=== PATIENT | female | born 1950 | race Caucasian/White ===

== ENCOUNTER → 2017-04-26 13:08 | Outpatient (CLI) | payer OTHER, MEDICARE, SELFPAY ==
[2017-04-26 14:27] VITALS: PULSE 90
== END ==
PROVIDERS: PCP Family Medicine; Visit Provider Family Medicine
DX: R06.2 Wheezing (principal)
CPT/HCPCS: 94060; 94640

== ENCOUNTER 2017-06-07 13:25 | Inpatient (IN) | payer OTHER, MEDICARE, SELFPAY ==
[2017-06-07 13:29] VITALS: BP 150/77; PULSE 67; RESP 18; TEMP 36.6; O2SAT 98; BMI 29.2
[2017-06-07 14:21] LABS: Alanine Aminotransferase 45 U/L (12-78); Albumin Level 2.8 gm/dL (3.4-5.0); Albumin/Globulin Ratio 0.5 (1.1-1.8); Alkaline Phosphatase 491 U/L (46-116); Anion Gap 16.3 mEq/L (5-15); Aspartate Amino Transferase 42 U/L (15-37); Bilirubin,Total 0.7 mg/dL (0.2-1.0); Blood Urea Nitrogen 34 mg/dL (7-18); Calcium 10.4 mg/dL (8.5-10.1); Carbon Dioxide 35 mmol/L (21.0-32.0); Chloride 82 mmol/L (98-107); Creatinine Clearance Estimated 33 mL/min (0-300); Creatinine,Serum 1.98 mg/dL (0.55-1.02); Estimated Glomerular Filt Rate 25 ml/min (>60); GFR (African American) 31 ML/MIN (>60); Globulin 5.8 gm/dl (1.3-3.2); Glucose 209 mg/dL (74-106); Magnesium 1.8 mg/dL (1.4-2.2); Sodium 132 mmol/L (136-145); Total Protein,Serum 8.6 gm/dL (6.4-8.2)
[2017-06-07 14:58] LABS: Potassium 1.3 mmoL/L (3.5-5.1)
--- NOTE | 2017-06-07 15:00 | PC.NURSE ---
spoke with lab called critical potassium 1.3.
--- NOTE | 2017-06-07 15:29 | HMH.EDNVD ---
ED Disposition Clinical Impression: Hypokalemia due to loss of potassium Disposition: Admitted as Observation Condition on Discharge: Serious Referrals: Connor Nunez MD [Primary Care Provider] - Time of Disposition: 15:45 - Critical Care Critical Care Time: Yes Attestation: On 06/07/17, the high probability of a clinically significant, sudden or life threatening deterioration of the following system(s) required my full and direct attention, intervention and personal management. The time I documented below is in addition to time spent performing reported procedures but includes the following listed in this critical care notation. Total Critical Care Time: 30 Vital system(s) involved:: Metabolic Failure My critical care processes included: Assessment & monitoring of V/S, Initial and Re-exams, Data Review/Interpretation, Coordinating Care, Medication Orders and management, Documentation Medical Decision Making Vital Signs: 06/07/17 13:29 Temperature 98 F Temperature Source Oral Pulse Rate [Right Radial] 67 Respiratory Rate 18 Blood Pressure [Right Arm] 150/77 Blood Pressure Mean [Right Arm] 101 Blood Pressure Source [Right Arm] Automatic Cuff Blood Pressure Position [Right Arm] Supine 02 Sat by Pulse Oximetry 98 Oxygen Delivery Method Room Air - Lab Data Lab results reviewed: Yes: I reviewed the patient's lab results. Lab Results 06/07/17 14:35: Sodium 132 L, Potassium 1.3 L*, Chloride 82 L, Carbon Dioxide 35 H, Anion Gap 16.3 H, BUN 34 H, Creatinine 1.98 H, Estimated Creat Clear 33, Estimated GFR 25 L, Est GFR ( Amer) 31 L, Glucose 209 H, Calcium 10.4 H, Magnesium 1.8, Total Bilirubin 0.7, AST 42 H, ALT 45, Alkaline Phosphatase 491 H, Total Protein 8.6 H, Albumin 2.8 L, Globulin 5.8 H, Albumin/Globulin Ratio 0.5 L Result diagrams: 06/07/17 14:35 Orders (Tests/Meds): ED MEDICATIONS Generic Name Dose Route Start Last Admin Trade Name Freq PRN Reason Stop Dose Admin Potassium Chloride/Water 100 mls @ 50 mls/hr 06/07/17 15:03 Potassium Chloride 20meq/100ml Ivpb IV 06/07/17 17:02 ONCE ONE Potassium Chloride/Water 100 mls @ 50 mls/hr 06/07/17 15:17 Potassium Chloride 20meq/100ml Ivpb IV 06/07/17 17:16 ONCE ONE Potassium Chloride/Water 100 mls @ 50 mls/hr 06/07/17 15:17 06/07/17 15:26 Potassium Chloride 20meq/100ml Ivpb IV 06/07/17 17:16 50 mls/hr ONCE ONE Administration Potassium Chloride/Dextrose/Sod Cl 1,000 mls @ 150 mls/hr 06/07/17 16:00 Kcl 20meq In D5w-0.45% Nacl IV 07/07/17 15:59 .Q6H40M RACHEL Potassium Chloride 40 meq 06/07/17 16:00 Potassium Chloride 20meq/15ml Solution Udc PO 07/07/17 15:59 DAILY RACHEL Discontinued Medications Generic Name Dose Route Start Last Admin Trade Name Freq PRN Reason Stop Dose Admin Sodium Chloride 500 mls @ 999 mls/hr 06/07/17 14:30 06/07/17 14:36 Sod Chlor 0.9% 1000ml Bag IV 06/07/17 15:00 Not Given .Q31M RACHEL Sodium Chloride 1,000 mls @ 999 mls/hr 06/07/17 14:45 06/07/17 14:36 Sod Chlor 0.9% 1000ml Bag IV 06/07/17 15:45 999 mls/hr .Q1H1M RACHEL Administration ORDERS Category Date Time Status CT abdomen pelvis wo con Stat Cat Scan 06/07/17 13:49 Ordered Complete Blood Count Auto Diff Stat Lab 06/07/17 13:32 Ordered - ECG Data Tracing #1 I reviewed this ECG and interpreted as documented below: ECG initial impression date: 06/07/17 (prolonged QTc) ECG initial impression time: 13:50 Normal Sinus Rhythm: Yes Conduction abnormalities present: QT prolongation - Physician Consults Physician Consulted: Dr. Nunez PCP Reason -: Admission - Beto Inquiry Pt receiving controlled substance: No Medical Decision Making Narrative: Pt reassessed multiple times; stayed alert; kept on monitor; potassium level rechecked for accuracy then replacement begun IV and PO. Nausea/Vomiting/Diarrhea HPI - General Chief complaint: Dizziness Stated compl
--- NOTE | 2017-06-07 15:32 | ED_ITS ---
ED Disposition Clinical Impression: Hypokalemia due to loss of potassium Disposition: Admitted as Observation Condition on Discharge: Serious Referrals: Connor Nunez MD [Primary Care Provider] - Time of Disposition: 15:45 - Critical Care Critical Care Time: Yes Attestation: On 06/07/17, the high probability of a clinically significant, sudden or life threatening deterioration of the following system(s) required my full and direct attention, intervention and personal management. The time I documented below is in addition to time spent performing reported procedures but includes the following listed in this critical care notation. Total Critical Care Time: 30 Vital system(s) involved:: Metabolic Failure My critical care processes included: Assessment & monitoring of V/S, Initial and Re-exams, Data Review/Interpretation, Coordinating Care, Medication Orders and management, Documentation Medical Decision Making Vital Signs: 06/07/17 13:29 Temperature 98 F Temperature Source Oral Pulse Rate [Right Radial] 67 Respiratory Rate 18 Blood Pressure [Right Arm] 150/77 Blood Pressure Mean [Right Arm] 101 Blood Pressure Source [Right Arm] Automatic Cuff Blood Pressure Position [Right Arm] Supine 02 Sat by Pulse Oximetry 98 Oxygen Delivery Method Room Air - Lab Data Lab results reviewed: Yes: I reviewed the patient's lab results. Lab Results 06/07/17 14:35: Sodium 132 L, Potassium 1.3 L*, Chloride 82 L, Carbon Dioxide 35 H, Anion Gap 16.3 H, BUN 34 H, Creatinine 1.98 H, Estimated Creat Clear 33, Estimated GFR 25 L, Est GFR ( Amer) 31 L, Glucose 209 H, Calcium 10.4 H, Magnesium 1.8, Total Bilirubin 0.7, AST 42 H, ALT 45, Alkaline Phosphatase 491 H , Total Protein 8.6 H, Albumin 2.8 L, Globulin 5.8 H, Albumin/Globulin Ratio 0.5 L Result diagrams: 06/07/17 14:35 Orders (Tests/Meds): ED MEDICATIONS Generic Name Dose Route Start Last Admin Trade Name Freq PRN Reason Stop Dose Admin Potassium Chloride/Water 100 mls @ 50 mls/hr 06/07/17 15:03 Potassium Chloride 20meq/100ml Ivpb IV 06/07/17 17:02 ONCE ONE Potassium Chloride/Water 100 mls @ 50 mls/hr 06/07/17 15:17 Potassium Chloride 20meq/100ml Ivpb IV 06/07/17 17:16 ONCE ONE Potassium Chloride/Water 100 mls @ 50 mls/hr 06/07/17 15:17 06/07/17 15:26 Potassium Chloride 20meq/100ml Ivpb IV 06/07/17 17:16 50 mls/hr ONCE ONE Administration Potassium Chloride/Dextrose/Sod Cl 1,000 mls @ 150 mls/hr 06/07/17 16:00 Kcl 20meq In D5w-0.45% Nacl IV 07/07/17 15:59 .Q6H40M RACHEL Potassium Chloride 40 meq 06/07/17 16:00 Potassium Chloride 20meq/15ml Solution Udc PO 07/07/17 15:59 DAILY RACHEL Discontinued Medications Generic Name Dose Route Start Last Admin Trade Name Freq PRN Reason Stop Dose Admin Sodium Chloride 500 mls @ 999 mls/hr 06/07/17 14:30 06/07/17 14:36 Sod Chlor 0.9% 1000ml Bag IV 06/07/17 15:00 Not Given .Q31M RACHEL Sodium Chloride 1,000 mls @ 999 mls/hr 06/07/17 14:45 06/07/17 14:36 Sod Chlor 0.9% 1000ml Bag IV 06/07/17 15:45 999 mls/hr .Q1H1M RACHEL Administration ORDERS Category Date Time Status CT abdomen pelvis wo con Stat Cat Scan 06/07/17 13:49 Ordered Complete Blood Count Auto
[2017-06-07 15:44] LABS: Hematocrit 51.1 % (37.0-47.0); Mean Corpuscular Volume 93.3 fl (81-99); Red Blood Count 5.48 M/mm3 (4.20-5.40); White Blood Count 10.6 K/mm3 (4.8-10.8)
[2017-06-07 15:45] LABS: Basophils % 0.3 % (0.1-2.0); Eosinophils % 0.4 % (0.1-12.0); Mean Corpuscular HGB Conc 33.3 g/dL (31.8-35.4); Mean Corpuscular Hemoglobin 31.1 pg (27.0-31.2); Mean Platelet Volume 8.2 fl (7.4-10.4); Monocytes # 0.3 K/mm3 (0.1-1.0); Monocytes % 2.8 % (1.7-9.3); Neutrophils # 8.1 K/mm3 (1.8-7.8); Neutrophils % 75.9 % (37.0-80.0); Red Cell Distribution Width 14.6 % (11.5-17.5)
[2017-06-07 15:46] LABS: Lymphocytes # 2.2 K/mm3 (0.7-4.5); Lymphocytes % 20.6 K/mm3 (10-50)
[2017-06-07 16:20] LABS: Platelet Count 842 K/mm3 (142-424)
--- NOTE | 2017-06-07 16:28 | PC.NURSE ---
Report given to SPENCER Yan.
[2017-06-07 16:40] VITALS: BP 150/77; PULSE 67; RESP 18; TEMP 36.7; O2SAT 98
[2017-06-07 17:00] VITALS: BP 140/65; PULSE 62; RESP 18; TEMP 36.6; O2SAT 99; BMI 32.1
[2017-06-07 18:02] LABS: Phosphorous 3.6 mg/dL (2.4-4.9)
--- NOTE | 2017-06-07 19:27 | PC.NURSE ---
PATIENT ADMITTED TODAY FOR HYPOKALEMIA, RESTING IN BED AT THIS TIME, STATES SHE CAN FEEL HERSELF GETTING BETTER. GAVE REPORT TO OPAL PALMER
[2017-06-07 19:50] VITALS: O2SAT 97
[2017-06-07 20:00] VITALS: BP 111/63; PULSE 50; PULSE 63; RESP 14; TEMP 36.4; O2SAT 97
[2017-06-07 21:24] LABS: Anion Gap 11.4 mEq/L (5-15); Blood Urea Nitrogen 32 mg/dL (7-18); Carbon Dioxide 34 mmol/L (21.0-32.0); Chloride 90 mmol/L (98-107); Creatinine Clearance Estimated 41 mL/min (0-300); Creatinine,Serum 1.71 mg/dL (0.55-1.02); Estimated Glomerular Filt Rate 30 ml/min (>60); GFR (African American) 36 ML/MIN (>60); Glucose 132 mg/dL (74-106); Sodium 134 mmol/L (136-145)
[2017-06-07 21:32] LABS: Potassium 1.4 mmoL/L (3.5-5.1)
[2017-06-07 21:37] LABS: C-Reactive Protein 16.9 mg/L (0.0-0.9)
[2017-06-07 22:15] LABS: Erythrocyte Sedimentation Rate 86 mm/hr (0-30)
--- NOTE | 2017-06-07 22:34 | PC.NURSE ---
lab notified RN of critical lab value potassium 1.4, notified and responded at 2137, new orders for one dose potassium 20 meq PO, and 5 bags of potassium 20 meq IV ordered, order was repeated and verified.
[2017-06-08] VITALS (11 sets, daily range): BP systolic 110–167; BP diastolic 53–114; PULSE 64–83; RESP 16–18; TEMP 36.7–37.2; O2SAT 95–99
--- NOTE | 2017-06-08 03:28 | PC.NURSE ---
no changes noted from previous assessment, pt has rested well this shift, pt denies pain, c/o weakness and states she has had a period of incontinence due to the weakness, pt was encouraged to voice need to use the bathroom so that staff could assist with ambulation to the restroom, pt has had no diarrhea this shift, abdomen is soft and non tender, bowel sounds are active, breath sounds are clear to auscultation, vss, no acute distress noted at this time, call light in reach, will continue to monitor.
[2017-06-08 07:01] LABS: Alanine Aminotransferase 46 U/L (12-78); Albumin Level 2.1 gm/dL (3.4-5.0); Albumin/Globulin Ratio 0.5 (1.1-1.8); Alkaline Phosphatase 459 U/L (46-116); Anion Gap 10.9 mEq/L (5-15); Aspartate Amino Transferase 67 U/L (15-37); Bilirubin,Total 0.5 mg/dL (0.2-1.0); Blood Urea Nitrogen 28 mg/dL (7-18); Carbon Dioxide 32 mmol/L (21.0-32.0); Chloride 94 mmol/L (98-107); Creatinine Clearance Estimated 45 mL/min (0-300); Creatinine,Serum 1.57 mg/dL (0.55-1.02); Estimated Glomerular Filt Rate 33 ml/min (>60); GFR (African American) 40 ML/MIN (>60); Glucose 152 mg/dL (74-106); Magnesium 1.5 mg/dL (1.4-2.2); Sodium 135 mmol/L (136-145); Total Protein,Serum 6.1 gm/dL (6.4-8.2)
[2017-06-08 07:08] LABS: Potassium 1.9 mmoL/L (3.5-5.1)
--- NOTE | 2017-06-08 07:49 | HMH.HP ---
*Admission Date: 06/07/17 *Chief complaint: Weakness *History of present illness: 66-year-old female presented to the emergency department with a 2 week history of episodes of vomiting with diarrhea with acute worsening of the diarrhea over the last 4-5 days for which she was using Lomotil. Patient estimates she was having at least 5 watery bowel movements per day. In the emergency department patient was quite weak and was found to have a potassium of 1.3 along with mild acute kidney injury. Patient was admitted with both oral and IV potassium repigment. Follow-up potassium was 1.4 after runs of IV potassium. This morning her potassium is risen to 1.9. [facility] History Medical History: Denies:: Cancer, Diabetes Mellitus Type 1, Diabetes Mellitus Type 2, Internal Pacemaker, MRSA Other Medical History: Reports: Arthritis, Other (hypokalemia) Laterality Cases: Left: Arthroscopy Shoulder, Right: Total Hip Replacement Other Surgeries: No: Pacemaker Amputation: No Fractures: No - *Social History Educational Level: Completed College Smoking Status: Never smoker Alcohol Intake: never Occupational Status: retired Housing: house Household Members: spouse - Psychiatric History Expresses thoughts of harming self/others: None Suicide Plan Description: No Plan *Family Hx:: Unable to obtain Review of Systems - Review of Systems Review of systems:: pertinent systems reviewed and negative unless documented below Meds Home Medications Medication Instructions Recorded Confirmed Type Acyclovir [Zovirax 400mg tablet] 400 mg PO BID 06/07/17 06/07/17 History Albuterol Sulfate [Proair Hfa 2 puffs IH Q4HP PRN 06/07/17 06/07/17 History 90mcg/puff Inh] Atenolol/Chlorthalidone 1 each PO DAILY 06/07/17 06/07/17 History [Atenolol-Chlorthalidone 50-25] Atorvastatin Calcium [Atorvastatin 20 mg PO DAILY 06/07/17 06/07/17 History 20mg Tab] Cetirizine HCl 10 mg PO DAILY 06/07/17 06/07/17 History Diphenoxylate HCl/Atropine 2.5 mg PO Q4H 06/07/17 06/07/17 History [Lomotil 2.5mg tablet] Doxycycline Hyclate 100 mg PO BID 06/07/17 06/07/17 History Duloxetine HCl 60 mg PO DAILY 06/07/17 06/07/17 History Estradiol 1 mg PO DAILY 06/07/17 06/07/17 History Estradiol 2 mg PO DAILY 06/07/17 06/07/17 History Estradiol [Divigel] 1 gm TD DAILY 06/07/17 06/07/17 History Furosemide [Furosemide 40MG tAB] 40 mg PO DAILY 06/07/17 06/07/17 History Montelukast Sodium [Montelukast 10 mg PO HS 06/07/17 06/07/17 History 10mg Tab] Nystatin [Nystatin Cr 100,000 100,000 susprecons PO Q4HP PRN 06/07/17 06/07/17 History Units/GM 30GM] Oxycodone HCl/Acetaminophen 325 mg PO Q4HP PRN 06/07/17 06/07/17 History [Oxycodone W/Apap 325mg Tablet] Progesterone, Micronized 100 mg PO HS 06/07/17 06/07/17 History [Progesterone] Progesterone, Micronized 200 mg PO DAILYP PRN 06/07/17 06/07/17 History [Progesterone] Promethazine HCl [Promethazine 50 mg RC Q6H PRN 06/07/17 06/07/17 History 50mg Supp] Trazodone HCl 150 mg PO BID 06/07/17 06/07/17 History cloNIDine HCl [cloNIDine 0.1mg 0.1 mg PO BID 06/07/17 06/07/17 History Tablet] Allergies Allergy/AdvReac Type Severity Reaction Status Date / Time No Known Allergies Allergy Verified 06/07/17 13:39 Exam Vital signs and Labs for Last 24 Hours: Temp Pulse Resp BP Pulse Ox 98.0 F 70 16 167/114 99 06/08/17 04:00 06/08/17 04:00 06/08/17 04:00 06/08/17 04:00 06/08/17 04:00 Laboratory Results - last 24 hr 06/07/17 21:00: Sodium 134 L, Potassium 1.4 L*, Chloride 90 L, Carbon Dioxide 34 H, Anion Gap 11.4, BUN 32 H, Creatinine 1.71 H, Estimated Creat Clear 41, Estimated GFR 30 L, Est GFR ( Amer) 36 L, Glucose 132 H D 06/07/17 21:00: ESR 86 H 06/07/17 21:00: C-Reactive Protein 16.9 H 06/08/17 06:20: Sodium 135 L, Potassium 1.9 L* D, Chloride 94 L, Carbon Dioxide 32, Anion Gap 10.9, BUN 28 H, Creatinine 1.57 H, Estimated Creat Clear 45, Estimated GFR 33 L, Est GFR ( Amer
[2017-06-08 07:51] LABS: Basophils % 0.3 % (0.1-2.0); Eosinophils # 0.1 K/mm3 (0.0-0.4); Eosinophils % 0.6 % (0.1-12.0); Hematocrit 39.9 % (37.0-47.0); Lymphocytes # 1.7 K/mm3 (0.7-4.5); Lymphocytes % 14.8 K/mm3 (10-50); Mean Corpuscular HGB Conc 33.7 g/dL (31.8-35.4); Mean Corpuscular Hemoglobin 31.9 pg (27.0-31.2); Mean Corpuscular Volume 94.5 fl (81-99); Mean Platelet Volume 7.6 fl (7.4-10.4); Monocytes # 0.4 K/mm3 (0.1-1.0); Monocytes % 3.2 % (1.7-9.3); Neutrophils # 9.5 K/mm3 (1.8-7.8); Neutrophils % 81.1 % (37.0-80.0); Platelet Count 697 K/mm3 (142-424); Red Blood Count 4.22 M/mm3 (4.20-5.40); Red Cell Distribution Width 14.9 % (11.5-17.5); White Blood Count 11.7 K/mm3 (4.8-10.8)
--- NOTE | 2017-06-08 07:54 | PC.NURSE ---
Dr. Nunez paged at 0720 this morning, he was notified in person at 0745 of a critical potassium of 1.9. No verbal orders received.
[2017-06-08 08:02] LABS: Hemoglobin 13.5 g/dL (12.2-16.2)
--- NOTE | 2017-06-08 13:43 | HMH.PHAVTE ---
[facility] Pharm[facility] VTE Monitoring - Patient Demographics Admission date: 06/08/17 Report Date: 06/08/17 Time: 13:43 Allergies/Adverse Reactions: Patient Allergies No Known Allergies Allergy (Verified 06/07/17 13:39) Height: 1.57 m Weight: 79.549 kg Patient Problems: Current Active Problems Hypokalemia due to loss of potassium (Acute) - VTE Risk Labs: VTE Related Lab Results Hgb 13.5 g/dL (12.2-16.2) D 06/08/17 06:20 Hct 39.9 % (37.0-47.0) 06/08/17 06:20 Plt Count 697 K/mm3 (142-424) H 06/08/17 06:20 BUN 28 mg/dL (7-18) H 06/08/17 06:20 Creatinine 1.57 mg/dL (0.55-1.02) H 06/08/17 06:20 Estimated Creat Clear 45 mL/min (0-300) 06/08/17 06:20 Was VTE Risk Assessment Performed: No VTE Score: 1 VTE Risk Level: Very Low Risk - Prophylaxis Types of VTE Prophylaxis: TEDS Knee High - VTE Diagnosis Confirmed Comment: ELIA WREN ORDERED
[2017-06-08 14:38] LABS: Anion Gap 14.5 mEq/L (5-15); Blood Urea Nitrogen 25 mg/dL (7-18); Carbon Dioxide 26 mmol/L (21.0-32.0); Chloride 97 mmol/L (98-107); Creatinine Clearance Estimated 53 mL/min (0-300); Creatinine,Serum 1.33 mg/dL (0.55-1.02); Estimated Glomerular Filt Rate 40 ml/min (>60); GFR (African American) 48 ML/MIN (>60); Glucose 132 mg/dL (74-106); Sodium 135 mmol/L (136-145)
[2017-06-08 14:40] LABS: Potassium 2.5 mmoL/L (3.5-5.1)
--- NOTE | 2017-06-08 14:49 | PC.NURSE ---
DR. CHAPIN NOTIFIED OF POTASSIUM OF 2.5, ORDER TO CANCEL LAST TWO INFUSIONS OF POTASSIUM WAS RECEIVED. WILL CONTINUE TO MONITOR.
--- NOTE | 2017-06-08 18:14 | PC.NURSE ---
Pt tolerated well this shift, VS stable. Pt very confused through out this shift. Pt has had potassium running the entire shift, along with her ordered fluids. Pt's family visited bedside this shift. Dr. Nunez notified for midday potassium level of 2.5, and order to discontinue last 2 doses of potassium runs was received. Pt is in bed, call light within reach, last run of potassium infusing, will continue to monitor.
[2017-06-09] VITALS (9 sets, daily range): BP systolic 119–144; BP diastolic 55–74; PULSE 20–90; RESP 14–20; TEMP 36.4–36.9; O2SAT 98–100
--- NOTE | 2017-06-09 02:40 | PC.NURSE ---
at approximately 2100 pt was A&O however having periods of confusion, pt was hostile toward staff and used profanity toward staff, pt has a bag of medications at the bedside and refuses to let staff lock the medications in a drawer, after some rest pt became more cooperative with staff and less confused, pt has rested well this shift, diarrhea has decreased, pt has been ambulating to and from the bathroom with standby assist and tolerating well, bowel sounds are hyperactive, pt c/o upset stomach once this shift no vomiting noted, breath sounds are clear to auscultation, vss, no acute distress noted at this time, bed alarm activated, call light in reach, will continue to monitor.
--- NOTE | 2017-06-09 06:59 | HMH.ACPN2 ---
Internal Medicine - PN: Subj *Date: 06/09/17 *Time: 06:59 Interval history: Patient is without complaints this morning. Nursing staff reports patient became combative for a brief period of time overnight with staff. She was ultimately able to calm down and returned to her normally pleasant self. She continues to have some abdominal cramping with some bouts of diarrhea. We have still been unable to collect a sample. She is a poor nausea but no further vomiting. She is tolerating her p.o. medicines but tells me eating and drinking are bothersome to her stomach. Exam Vital signs and Labs for Last 24 Hours: Temp Pulse Resp BP Pulse Ox 98.3 F 76 14 119/57 98 06/09/17 04:00 06/09/17 04:00 06/09/17 04:00 06/09/17 04:00 06/09/17 04:00 Laboratory Results - last 24 hr 06/08/17 06:20: WBC 11.7 H, RBC 4.22, Hgb 13.5 D, Hct 39.9, MCV 94.5, MCH 31.9 H, MCHC 33.7, RDW 14.9, Plt Count 697 H, MPV 7.6, Neut % (Auto) 81.1 H, Lymph % (Auto) 14.8, [place] % (Auto) 3.2, Eos % (Auto) 0.6, Baso % (Auto) 0.3, Neut # (Auto) 9.5 H, Lymph # (Auto) 1.7, [place] # (Auto) 0.4, Eos # (Auto) 0.1, Baso # (Auto) 0.0 06/08/17 06:20: Sodium 135 L, Potassium 1.9 L* D, Chloride 94 L, Carbon Dioxide 32, Anion Gap 10.9, BUN 28 H, Creatinine 1.57 H, Estimated Creat Clear 45, Estimated GFR 33 L, Est GFR ( Amer) 40 L, Glucose 152 H, Calcium 8.0 L D, Magnesium 1.5 D, Total Bilirubin 0.5, AST 67 H D, ALT 46, Alkaline Phosphatase 459 H, Total Protein 6.1 L D, Albumin 2.1 L D, Globulin 4.0 H, Albumin/Globulin Ratio 0.5 L 06/08/17 14:20: Sodium 135 L, Potassium 2.5 L* D, Chloride 97 L, Carbon Dioxide 26, Anion Gap 14.5, BUN 25 H, Creatinine 1.33 H, Estimated Creat Clear 53, Estimated GFR 40 L, Est GFR ( Amer) 48 L, Glucose 132 H I & O for Last 24 hours: Intake & Output 06/06/17 06/07/17 06/08/17 06/09/17 11:59 11:59 11:59 11:59 Intake Total 3192.500 / 3192.500 3049 / 3049 Output Total 1100 / 1100 Balance 2092.500 / 2092.500 3049 / 3049 Weight 175 lb 6 oz 175 lb 6 oz Narrative: She is pleasant this morning. She appears better hydrated. Oropharynx is moist. Neck is without lymphadenopathy. Lungs are clear. Heart has a regular rate and rhythm. Abdomen is soft with mild left lower quadrant tenderness to palpation. 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 We will continue to try to obtain a stool sample for testing 2. Decrease maintenance fluids to 75 mL's per hour. Continue oral potassium supplementation 3. Await potassium level this morning. 4. Patient's bouts of confusion may be due to drug withdrawal from narcotics. This morning she seems pleasant and vital signs are stable. Patient is actually requesting discharge because she feels better. If potassium is within reasonable range and patient is able to tolerate p.o. liquids she will be discharged home late this evening
--- NOTE | 2017-06-09 07:02 | P.PN_ITS ---
Internal Medicine - PN: Subj *Date: 06/09/17 *Time: 06:59 Interval history: Patient is without complaints this morning. Nursing staff reports patient became combative for a brief period of time overnight with staff. She was ultimately able to calm down and returned to her normally pleasant self. She continues to have some abdominal cramping with some bouts of diarrhea. We have still been unable to collect a sample. She is a poor nausea but no further vomiting. She is tolerating her p.o. medicines but tells me eating and drinking are bothersome to her stomach. Exam Vital signs and Labs for Last 24 Hours: Temp Pulse Resp BP Pulse Ox 98.3 F 76 14 119/57 98 06/09/17 04:00 06/09/17 04:00 06/09/17 04:00 06/09/17 04:00 06/09/17 04:00 Laboratory Results - last 24 hr 06/08/17 06:20: WBC 11.7 H, RBC 4.22, Hgb 13.5 D, Hct 39.9, MCV 94.5, MCH 31.9 H, MCHC 33.7, RDW 14.9, Plt Count 697 H, MPV 7.6, Neut % (Auto) 81.1 H, Lymph % (Auto) 14.8, [place] % (Auto) 3.2, Eos % (Auto) 0.6, Baso % (Auto) 0.3, Neut # ( Auto) 9.5 H, Lymph # (Auto) 1.7, [place] # (Auto) 0.4, Eos # (Auto) 0.1, Baso # ( Auto) 0.0 06/08/17 06:20: Sodium 135 L, Potassium 1.9 L* D, Chloride 94 L, Carbon Dioxide 32, Anion Gap 10.9, BUN 28 H, Creatinine 1.57 H, Estimated Creat Clear 45, Estimated GFR 33 L, Est GFR ( Amer) 40 L, Glucose 152 H, Calcium 8.0 L D , Magnesium 1.5 D, Total Bilirubin 0.5, AST 67 H D, ALT 46, Alkaline Phosphatase 459 H, Total Protein 6.1 L D, Albumin 2.1 L D, Globulin 4.0 H, Albumin/Globulin Ratio 0.5 L 06/08/17 14:20: Sodium 135 L, Potassium 2.5 L* D, Chloride 97 L, Carbon Dioxide 26, Anion Gap 14.5, BUN 25 H, Creatinine 1.33 H, Estimated Creat Clear 53, Estimated GFR 40 L, Est GFR ( Amer) 48 L, Glucose 132 H I & O for Last 24 hours: Intake & Output 06/06/17 06/07/17 06/08/17 06/09/17 11:59 11:59 11:59 11:59 Intake Total 3192.500 / 3192.500 3049 / 3049 Output Total 1100 / 1100 Balance 2092.500 / 2092.500 3049 / 3049 Weight 175 lb 6 oz 175 lb 6 oz Narrative: She is pleasant this morning. She appears better hydrated. Oropharynx is moist. Neck is without lymphadenopathy. Lungs are clear. Heart has a regular rate and rhythm. Abdomen is soft with mild left lower quadrant tenderness to palpation. 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 We will continue to try to obtain a stool sample for testing 2. Decrease maintenance fluids to 75 mL's per hour. Continue oral potassium supplementation 3. Await potassium level this morning. 4. Patient's bouts of confusion may be due to drug withdrawal from narcotics. This morning she seems pleasant and vital signs are stable. Patient is actually requesting discharge because she feels better. If potassium is within reasonable range and patient is able to tolerate p.o. liquids she will be discharged home late this evening
--- NOTE | 2017-06-09 07:02 | HMH.DCSUM ---
General - General Admission date: 06/08/17 Discharge date: 06/09/17 HPI HPI: 66-year-old female presented to the emergency department with a 2 week history of episodes of vomiting with diarrhea with acute worsening of the diarrhea over the last 4-5 days for which she was using Lomotil. Patient estimates she was having at least 5 watery bowel movements per day. In the emergency department patient was quite weak and was found to have a potassium of 1.3 along with mild acute kidney injury. Patient was admitted with both oral and IV potassium repigment. Follow-up potassium was 1.4 after runs of IV potassium. This morning her potassium is risen to 1.9. Hospital Course Hospital Course: Patient was admitted and potassium was replaced both intravenously and orally until potassium returned to normal level. Last potassium prior to discharge on the evening of June 09 was 3.9. Patient had a several day history of frequent watery diarrhea prior to admission. A stool sample was collected on the morning of June 09 which was positive for C. difficile. Patient was started on oral Flagyl and will continue that at discharge. At discharge she was taken off all diuretics. On the evening of the patient requested discharge as her potassium had returned to normal and she was started on medication for her C. difficile she was discharged home with instructions to follow-up in the office on June 12 Objective Vital signs: Temp Pulse Resp BP Pulse Ox 98.3 F 76 14 119/57 98 06/09/17 04:00 06/09/17 04:00 06/09/17 04:00 06/09/17 04:00 06/09/17 04:00 Results Labs on day of discharge: Labs from last 24 hours 06/08/17 06/08/17 06/08/17 14:20 06:20 06:20 WBC 11.7 H RBC 4.22 Hgb 13.5 D Hct 39.9 MCV 94.5 MCH 31.9 H MCHC 33.7 RDW 14.9 Plt Count 697 H MPV 7.6 Neut % (Auto) 81.1 H Lymph % (Auto) 14.8 [place] % (Auto) 3.2 Eos % (Auto) 0.6 Baso % (Auto) 0.3 Neut # (Auto) 9.5 H Lymph # (Auto) 1.7 [place] # (Auto) 0.4 Eos # (Auto) 0.1 Baso # (Auto) 0.0 Sodium 135 L 135 L Potassium 2.5 L* D 1.9 L* D Chloride 97 L 94 L Carbon Dioxide 26 32 Anion Gap 14.5 10.9 BUN 25 H 28 H Creatinine 1.33 H 1.57 H Estimated Creat Clear 53 45 Estimated GFR 40 L 33 L Est GFR ( Amer) 48 L 40 L Glucose 132 H 152 H Calcium 8.0 L D Magnesium 1.5 D Total Bilirubin 0.5 AST 67 H D ALT 46 Alkaline Phosphatase 459 H Total Protein 6.1 L D Albumin 2.1 L D Globulin 4.0 H Albumin/Globulin Ratio 0.5 L DS: Diagnosis - Discharge Diagnosis (1) Hypokalemia due to loss of potassium Status: Acute (2) Diarrhea Status: Acute (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 difficile diarrhea Status: Acute Discharge Plan - Patient Discharge Instructions ACTIVITY: Continue current activity DIET: continue same diet - Follow up Plan Follow up with: Connor Nunez MD [Primary Care Provider] - 06/12/17 (Bring all home medications to your appointment) Disposition: Home, Self-Alf Medications: Home Medications Medication Instructions Recorded Confirmed Type Albuterol Sulfate [Proair Hfa 2 puffs IH Q4HP PRN 06/07/17 06/07/17 History 90mcg/puff Inh] Atorvastatin Calcium [Atorvastatin 20 mg PO DAILY 06/07/17 06/07/17 History 20mg Tab] Cetirizine HCl 10 mg PO DAILY 06/07/17 06/07/17 History Diphenoxylate HCl/Atropine 2.5 mg PO Q4H 06/07/17 06/07/17 History [Lomotil 2.5mg tablet] Doxycycline Hyclate 100 mg PO BID 06/07/17 06/07/17 History Duloxetine HCl 60 mg PO DAILY 06/07/17 06/07/17 History Estradiol 2 mg PO DAILY 06/07/17 06/07/17 History Montelukast Sodium [Montelukast 10 mg PO HS 06/07/17 06/07/17 History 10mg Tab] Nystatin [Nystatin Cr 100,000 1 gm PO Q4HP PRN 06/07/17 06/08/17 History Units/GM 30GM] Oxycodone HCl/Acetaminophen 325 mg PO
--- NOTE | 2017-06-09 07:03 | PC.NURSE ---
report given to Darlene Donaldson RN
--- NOTE | 2017-06-09 07:05 | P.DS_ITS ---
General - General Admission date: 06/08/17 Discharge date: 06/09/17 HPI HPI: 66-year-old female presented to the emergency department with a 2 week history of episodes of vomiting with diarrhea with acute worsening of the diarrhea over the last 4-5 days for which she was using Lomotil. Patient estimates she was having at least 5 watery bowel movements per day. In the emergency department patient was quite weak and was found to have a potassium of 1.3 along with mild acute kidney injury. Patient was admitted with both oral and IV potassium repigment. Follow-up potassium was 1.4 after runs of IV potassium. This morning her potassium is risen to 1.9. Hospital Course Hospital Course: Patient was admitted and potassium was replaced both intravenously and orally until potassium returned to normal level. Last potassium prior to discharge on the evening of June 09 was 3.9. Patient had a several day history of frequent watery diarrhea prior to admission. A stool sample was collected on the morning of June 09 which was positive for C. difficile. Patient was started on oral Flagyl and will continue that at discharge. At discharge she was taken off all diuretics. On the evening of the patient requested discharge as her potassium had returned to normal and she was started on medication for her C. difficile she was discharged home with instructions to follow-up in the office on June 12 Objective Vital signs: Temp Pulse Resp BP Pulse Ox 98.3 F 76 14 119/57 98 06/09/17 04:00 06/09/17 04:00 06/09/17 04:00 06/09/17 04:00 06/09/17 04:00 Results Labs on day of discharge: Labs from last 24 hours 06/08/17 06/08/17 06/08/17 14:20 06:20 06:20 WBC 11.7 H RBC 4.22 Hgb 13.5 D Hct 39.9 MCV 94.5 MCH 31.9 H MCHC 33.7 RDW 14.9 Plt Count 697 H MPV 7.6 Neut % (Auto) 81.1 H Lymph % (Auto) 14.8 [place] % (Auto) 3.2 Eos % (Auto) 0.6 Baso % (Auto) 0.3 Neut # (Auto) 9.5 H Lymph # (Auto) 1.7 [place] # (Auto) 0.4 Eos # (Auto) 0.1 Baso # (Auto) 0.0 Sodium 135 L 135 L Potassium 2.5 L* D 1.9 L* D Chloride 97 L 94 L Carbon Dioxide 26 32 Anion Gap 14.5 10.9 BUN 25 H 28 H Creatinine 1.33 H 1.57 H Estimated Creat Clear 53 45 Estimated GFR 40 L 33 L Est GFR ( Amer) 48 L 40 L Glucose 132 H 152 H Calcium 8.0 L D Magnesium 1.5 D Total Bilirubin 0.5 AST 67 H D ALT 46 Alkaline Phosphatase 459 H Total Protein 6.1 L D Albumin 2.1 L D Globulin 4.0 H Albumin/Globulin Ratio 0.5 L DS: Diagnosis - Discharge Diagnosis (1) Hypokalemia due to loss of potassium Status: Acute (2) Diarrhea Status: Acute (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 difficile diarrhea Status: Acute Discharge Plan - Patient Discharge Instructions ACTIVITY: Continue current activity DIET: continue same diet - Follow up Plan Follow up with: Connor Nunez MD [Primary Care Provider] - 06/12/17 (Bring all home medications to your appointment) Disposition: Home, Self-Care
[2017-06-09 07:16] LABS: Basophils % 0.2 % (0.1-2.0); Eosinophils # 0.1 K/mm3 (0.0-0.4); Eosinophils % 0.7 % (0.1-12.0); Hematocrit 36.8 % (37.0-47.0); Hemoglobin 12.4 g/dL (12.2-16.2); Lymphocytes # 1.6 K/mm3 (0.7-4.5); Mean Corpuscular HGB Conc 33.7 g/dL (31.8-35.4); Mean Corpuscular Hemoglobin 31.8 pg (27.0-31.2); Mean Corpuscular Volume 94.4 fl (81-99); Mean Platelet Volume 8.3 fl (7.4-10.4); Monocytes # 0.3 K/mm3 (0.1-1.0); Neutrophils # 7.4 K/mm3 (1.8-7.8); Platelet Count 636 K/mm3 (142-424); Red Cell Distribution Width 15.2 % (11.5-17.5); White Blood Count 9.4 K/mm3 (4.8-10.8)
[2017-06-09 07:31] LABS: Alanine Aminotransferase 34 U/L (12-78); Albumin Level 1.9 gm/dL (3.4-5.0); Alkaline Phosphatase 371 U/L (46-116); Anion Gap 11.1 mEq/L (5-15); Aspartate Amino Transferase 32 U/L (15-37); Bilirubin,Direct 0.2 mg/dL (0.0-0.2); Bilirubin,Total 0.4 mg/dL (0.2-1.0); Blood Urea Nitrogen 15 mg/dL (7-18); Carbon Dioxide 27 mmol/L (21.0-32.0); Chloride 99 mmol/L (98-107); Creatinine Clearance Estimated 64 mL/min (0-300); Estimated Glomerular Filt Rate 50 ml/min (>60); GFR (African American) 60 ML/MIN (>60); Glucose 125 mg/dL (74-106); Sodium 135 mmol/L (136-145); Total Protein,Serum 5.6 gm/dL (6.4-8.2)
[2017-06-09 07:34] LABS: Potassium 2.1 mmoL/L (3.5-5.1)
[2017-06-09 13:23] LABS: Adenovirus F 40/41, stool Not Detected (NotDetected); Astrovirus Not Detected (NotDetected); Campylobacter Not Detected (NotDetected); Cryptosporidium Not Detected (NotDetected); Cyclospora Cayetanesis Not Detected (NotDetected); Entamoeba histolytica Not Detected (NotDetected); Enteroaggregative E coli Not Detected (NotDetected); Enteropathogenic E coli Not Detected (NotDetected); Enterotoxigenic E coli Not Detected (NotDetected); Giardia lamblia Not Detected (NotDetected); Norovirus Not Detected (NotDetected); Plesimonas Shigalloides, PCR Not Detected (NotDetected); Rotavirus A Not Detected (NotDetected); Salmonella, PCR Not Detected (NotDetected); Sapovirus Not Detected (NotDetected); Shiga-like toxin E coli Not Detected (NotDetected); Shigella Enterovasive E coli Not Detected (NotDetected); Vibrio Cholerae Not Detected (NotDetected); Vibrio, PCR Not Detected (NotDetected); Yersinia Entercolitica, PCR Not Detected (NotDetected)
[2017-06-09 15:26] LABS: Clostridium Difficile A/B, PCR Detected (NotDetected)
--- NOTE | 2017-06-09 18:38 | PC.NURSE ---
PT IS ALERT AND ORIENTED X4, LABILE. SEVERAL EPISODES OF CONFUSION/AGITATION THROUGHOUT SHIFT. PT HAS BEEN HOSTILE AND ARGUMENTATIVE WITH STAFF ENTIRE SHIFT. PT'S RESPONSE TO QUESTIONS HAVE BEEN INAPPROPRIATE FOR SITUATION. STAFF ASKED PATIENT IF SHE IS IN PAIN, PT RESPONDED, ARE YOU COOKING SOMETHING ON THE STOVE? PT HAS HAD 3-4 EPISODES OF DIARRHEA, STOOL SAMPLE COLLECTED AND SENT TO LAB. NO C/O NAUSEA/VOMITING OR PAIN. IV IS SECURE, PATENT AND INFUSING IVF. 5 BAGS OF POTASSIUM COMPLETED ORDERED. PT INITIALLY REFUSED TO LET STAFF LOCK UP BAG OF HOME MEDICATIONS AT BEDSIDE, BUT EVENTUALLY AGREED. HOME MEDS ARE IN MEDICATION DRAWER. PT'S MOTHER CAME TO VISIT AND TOLD STAFF THAT HER DAUGHTER STEALS HER PAIN MEDS AT TIMES. VSS. NO S/S OF DISTRESS NOTED. FALL PREVENTION EDUCATION COMPLETED AND SAFETY MEASURES IN PLACE. WILL CONTINUE TO MONITOR.
[2017-06-09 20:11] LABS: Potassium 3.9 mmoL/L (3.5-5.1)
== END 2017-06-09 22:16 | disposition home or self-care (01) | DRG 641 ==
LOC: ER 15:49 → 2ND 16:29
PROVIDERS: Admitting Provider Family Medicine; Emergency Provider Emergency Medicine; PCP Family Medicine; Visit Provider Family Medicine
DX: E87.6 Hypokalemia (principal); A04.72 Enterocolitis due to Clostridium difficile, not specified as recurrent; Z79.899 Other long term (current) drug therapy
CPT/HCPCS: 36415; 80048; 80053; 80076; 83735; 84100; 84132; 85025; 85651; 86140; 87205; 87507; 93005; 96365; 96366; 99284

== ENCOUNTER → 2017-07-13 11:22 | Outpatient (CLI) | payer OTHER, MEDICARE, SELFPAY ==
--- NOTE | 2017-07-13 11:27 | CT_ITS ---
CT abdomen pelvis w con COMPARISON: CT scan abdomen pelvis 12/13/2012 HISTORY: Nausea vomiting diarrhea for several months, weight loss TECHNIQUE: Multiaxial scans obtained from the hemidiaphragms to the pelvic floor and were performed with IV and oral contrast. Sagittal and coronal reformats were evaluated as well. FINDINGS: The lower lung mejía are clear. The liver spleen stomach pancreas and gallbladder appear grossly normal. The adrenal glands are normal. The kidneys are normal in size and show symmetrical function both appearing normal. There are mildly dilated loops of proximal small bowel with mild diffuse wall thickening and without a definite transition zone to more normal caliber distal small bowel loops. The appendix is not definitely seen but I see no pericecal inflammatory changes. The terminal ileum appears normal caliber. There is scattered stool and gas mixed with oral contrast throughout the colon. The uterus is normal size and in the midline. The urinary bladder is decompressed. There is prominent streak artifact crossing the lower pelvis from a total left hip prosthesis. There is no free fluid in the pelvis. There is a tiny umbilical hernia containing fat only. IMPRESSION: Diffusely dilated proximal and mid small bowel with diffuse wall thickening and without definite transition zone, all findings suggestive of enteritis. The grossly normal-appearing terminal ileum would be somewhat against early Crohn's disease but this is not totally excluded.
--- NOTE | 2017-07-13 13:19 | HMH.ITSHM ---
POTASSIUM,MAGNESIUM VICODIN
== END ==
PROVIDERS: PCP Family Medicine; Visit Provider Family Medicine
DX: R11.11 Vomiting without nausea (principal); R10.33 Periumbilical pain; R63.4 Abnormal weight loss
CPT/HCPCS: 74177; Q9967

== ENCOUNTER → 2018-02-07 15:35 | Outpatient (CLI) | payer OTHER, MEDICARE, SELFPAY ==
--- NOTE | 2018-02-07 15:51 | XR_ITS ---
XR shoulder RT min 2V HISTORY: Right shoulder pain ITS.REASON: ROTATOR CUFF SYNDROME OF RT. SHOULDER ORDERING PHYSICIAN: Connor Nunez MD PATIENT AGE: 67 years Comparison: None FINDINGS: Severe osteoarthritis involves the glenohumeral joint with loss of joint space and osteophyte formation. Osteoarthritis also involves the acromioclavicular joint with subacromial stenosis. Hypertrophic changes are present at the distal acromium contributing to the subacromial stenosis No fracture or dislocation. No lytic or blastic change. 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
== END ==
PROVIDERS: PCP Family Medicine; Visit Provider Family Medicine
DX: M75.101 Unspecified rotator cuff tear or rupture of right shoulder, not specified as traumatic (principal)
CPT/HCPCS: 73030

== ENCOUNTER 2018-04-15 15:00 | Outpatient (RCR) | payer OTHER, MEDICARE, SELFPAY ==
--- NOTE | 2018-02-07 15:52 | HMH.PTOPEV ---
PT Outpatient Evaluation Rehab PT Outpatient Evaluation Start: 02/07/18 15:31 Freq: Status: Active Protocol: Document 02/07/18 15:31 DARON (Rec: 02/07/18 15:51 PHORNE [id number]) Electronically Signed By Moi Sands, PT 02/07/18 15:31 Outpatient Therapy Subjective History Subjective History Pt is 67 yowf who presents with c/o right shld pain x ~ 2 mos with insidious onset of symptoms. She reports pain is worse with certain activities and at night, especially if sleeping on the right side. She reports x-ray is scheduled for the right shld. She has hx of OA with left TSA and KANDY . She reports no c/o numbness or tingling and no neck pain. Daily pain meds help decrease her pain. Chief Complaint Pain Symptom Type Ache Sharp Symptoms Relieved By Rest/Positioning Symptoms Aggravated By Lifting Prior Functional Limitations None Current Functional Limitations Reaching Lifting Sleeping Symptom Description Constant but Variable Level of pain today (0-10) 3 Pain scale - at its worst (0-10) 8 Shoulder/Elbow Eval Shoulder Objective Measurements Palpation Tenderness tenderness shoulder exam standard right tenderness over the bicipital tendon right shoulder exam standard tenderness over the SA bursa shoulder right exam standard Shoulder ROM Right Shoulder Abduction Active Range of 0-115 Motion (degrees) Shoulder Abduction Passive Range of 0-170 Motion (degrees) Shoulder Flexion Active Range of Motion 0-170 (degrees) Query Text: Shoulder Flexion Passive Range of Motion 0-180 (degrees) Shoulder External Rotation Active Range 0-70 of Motion (degrees) Shoulder External Rotation Passive Range 0-75 of Motion (degrees) Shoulder Internal Rotation Active Range 0-70 of Motion (degrees) Shoulder Internal Rotation Passive Range 0-75 of Motion (degrees) pain with active ROM shoulder exam right standard Shoulder MMT Shoulder Abduction Strength Grade 2 Poor Shoulder Flexion Strength Grade 3 Fair Shoulder External Rotation Strength 4 Good Grade Shoulder Internal Rotation Strength 4 Good Grade
== END 2018-04-15 15:05 | disposition home or self-care (01) ==
LOC: PT 15:00
PROVIDERS: Visit Provider Family Medicine
DX: M75.101 Unspecified rotator cuff tear or rupture of right shoulder, not specified as traumatic (principal)
CPT/HCPCS: 97010; 97014; 97033; 97035; 97110; 97140; 97163; G0283

== ENCOUNTER 2018-10-18 15:00 | Outpatient (RCR) | payer OTHER, MEDICARE, SELFPAY | END 2018-10-18 15:05 | disposition home or self-care (01) | LOC: PT 15:00 | PROVIDERS: Visit Provider Orthopaedic Surgery | DX: Z96.611 Presence of right artificial shoulder joint (principal); M25.511 Pain in right shoulder | CPT/HCPCS: 97010; 97110; 97163 ==

== ENCOUNTER → 2018-10-29 08:01 | Outpatient (CLI) | payer OTHER, MEDICARE, SELFPAY ==
--- NOTE | 2018-10-29 08:08 | US_ITS ---
US abdomen limited History:Follow-up liver cyst Ordering Physician:Mary Magaña MD Patient Age: 68 years Comparison:09/29/2013, 07/13/2017 Findings: Pancreas:Unremarkable. No obvious mass or abnormal fluid collection. No ductal dilatation Liver:Unremarkable. No obvious mass or abnormal fluid collection. No ductal dilatation. Previously noted tiny liver cyst is not demonstrated on today's exam Right Kidney:Unremarkable. Normal size and echogenicity. No hydronephrosis Gallbladder:No gallstones, gallbladder wall thickening, pericholecystic fluid, or biliary dilatation. Impression:Negative gallbladder/right upper quadrant ultrasound
== END ==
PROVIDERS: PCP Family Medicine; Visit Provider Internal Medicine
DX: R10.11 Right upper quadrant pain (principal)
CPT/HCPCS: 76705

== ENCOUNTER → 2019-01-27 14:20 | Outpatient (CLI) | payer MEDICARE, OTHER, SELFPAY ==
--- NOTE | 2019-01-27 14:25 | CA_ITS ---
APPROVED REPORT Left Lower Extremity Venous Study for DVT. Orthopedic Assistant: Lidia Moe RVT Indications Lower Extremity Edema: Left Vein Imaging CFV (L): compressive, spontaneous, phasic, augmentation FEM (L): compressive, spontaneous, phasic, augmentation POP (L): compressive, spontaneous, phasic, augmentation PTV (L): Compressible GSV (L): Compressible Peroneals (L):Compressible GAS (L): Compressible Findings Study suggests no evidence of DVT in the LLE. Study suggests no evidence of SVT in the LLE. Conclusion No evidence of DVT or superficial thrombophlebitis in the veins scanned of the left lower extremity. Electronically signed by : Neel Dao MD 01/29/2019 17:36:34
== END ==
PROVIDERS: PCP Family Medicine; Visit Provider Emergency Medicine
DX: M79.662 Pain in left lower leg (principal)
CPT/HCPCS: 93971

== ENCOUNTER 2019-06-11 08:57 | Outpatient (RCR) | payer MEDICARE, OTHER, SELFPAY | END 2019-06-11 09:47 | disposition home or self-care (01) | LOC: PT 08:57 | PROVIDERS: PCP Family Medicine; Visit Provider Orthopaedic Surgery | DX: M25.561 Pain in right knee (principal) | CPT/HCPCS: 97163 ==

== ENCOUNTER → 2019-09-17 16:08 | Outpatient (CLI) | payer MEDICARE, OTHER, SELFPAY ==
--- NOTE | 2019-09-17 16:13 | XR_ITS ---
PROCEDURE: XR CHEST 2V CLINICAL HISTORY: FORMER SMOKER COMPARISON: CXR1 CHEST-PORTABLE from 04/04/2015 XR CHEST 2V from 12/31/2018 XR CHEST 2V from 04/06/2019 FINDINGS: The cardiomediastinal silhouette and pulmonary vascularity are within normal limits. There is evidence of old granulomatous disease. No lobar consolidation or collapse. There are bilateral shoulder prosthesis IMPRESSION: No acute findings. Dictated by: Neel Dao MD 09/17/2019 17:18 Electronically signed by Neel Dao MD in [place] 09/17/2019 17:18
== END ==
PROVIDERS: PCP Family Medicine; Visit Provider Family Medicine
DX: Z01.818 Encounter for other preprocedural examination (principal); I10 Essential (primary) hypertension
CPT/HCPCS: 71046

== ENCOUNTER 2019-10-24 19:32 | Emergency (ER) | payer MEDICARE, OTHER, SELFPAY ==
[2019-10-24 19:33] VITALS: BP 176/71; PULSE 98; RESP 16; TEMP 37.3; O2SAT 98; BMI 32.9
--- NOTE | 2019-10-24 20:06 | HMH.EDNVD ---
ED Disposition Clinical Impression: Vomiting Qualifiers: Vomiting type: unspecified Vomiting Intractability: non-intractable Nausea presence: with nausea Qualified Code(s): R11.2 - Nausea with vomiting, unspecified Disposition: Home, Self-Care Condition on Discharge: Good Instructions: DI for Nausea -- Adult Additional Instructions: fluids and see pcp for follow up or return to ed Prescriptions: ondansetron HCL [Zofran 4mg Tab] 4 mg PO QID #20 tab Transmission Status: Pending to [facility] - Critical Care Critical Care Time: No Attestation: On 10/24/19, the high probability of a clinically significant, sudden or life threatening deterioration of the following system(s) required my full and direct attention, intervention and personal management. The time I documented below is in addition to time spent performing reported procedures but includes the following listed in this critical care notation. Medical Decision Making - Medical Records Medical records reviewed: Yes: I reviewed the patient's medical records. - Beto Inquiry Pt receiving controlled substance: No Vital Signs: 10/24/19 19:33 10/24/19 22:03 10/24/19 22:38 Temperature 99.2 F Temperature Source Oral Pulse Rate [Left Radial] 98 H 101 H 102 H Respiratory Rate 16 16 16 Blood Pressure [Right Arm] 176/71 H 198/91 H 174/70 H Blood Pressure Mean [Right Arm] 106 126 104 Blood Pressure Source [Right Arm] Automatic Cuff Blood Pressure Position [Right Arm] Sitting 02 Sat by Pulse Oximetry 98 99 99 Oxygen Delivery Method Room Air - Lab Data Lab results reviewed: Yes: I reviewed the patient's lab results. Lab Results 10/24/19 20:10: WBC 12.2 H, RBC 4.56, Hgb 13.2, Hct 40.4, MCV 88.8, MCH 29.0, MCHC 32.6, RDW 14.0, Plt Count 615 H, MPV 6.9 L, Neut % (Auto) 88.1 H, Lymph % (Auto) 8.6 L, [place] % (Auto) 2.7, Eos % (Auto) 0.4, Baso % (Auto) 0.2, Neut # (Auto) 10.7 H, Lymph # (Auto) 1.0, [place] # (Auto) 0.3, Eos # (Auto) 0.1, Baso # (Auto) 0.0, Total Counted 100, Neutrophils % (Manual) 90 H, Band Neutrophils % 5.0, Lymphocytes % (Manual) 5 L, Platelet Estimate Moderate increase, RBC Morphology Normal 10/24/19 20:10: Sodium 146 H, Potassium 3.0 L, Chloride 104, Carbon Dioxide 25, Anion Gap 20.0 H, BUN 7, Creatinine 0.80, Estimated Creat Clear 69, Estimated GFR 71, Est GFR ( Amer) 86, Glucose 169 H, Calcium 10.2, Total Bilirubin 0.6, AST 20, ALT 13, Alkaline Phosphatase 182 H, Total Protein 8.6 H, Albumin 5.2 H, Globulin 3.4 H, Albumin/Globulin Ratio 1.5, Amylase 76 10/24/19 20:10: Lipase 81 10/24/19 20:10: Lactate 1.4 10/24/19 20:10: ESR 52 H 10/24/19 20:10: C-Reactive Protein 2.9 10/24/19 20:38: Influenza Type A Ag Negative, Influenza Type B Ag Negative 10/24/19 21:23: Urine Color Yellow, Urine Appearance Clear, Urine pH 6.5, Ur Specific [place] 1.020, Urine Protein Negative, Urine Glucose (UA) Negative, Urine Ketones 1+, Urine Blood Negative, Urine Nitrate Negative, Urine Bilirubin Negative, Urine Urobilinogen 0.2, Ur Leukocyte Esterase Negative, Urine WBC 3-5, Ur Squamous Epith Cells 5-10, Ur Renal Epithelial Cell Occasional 10/24/19 21:23: Urine Opiates Screen Negative, Urine Methadone Screen Negative, Ur Barbituates Screen Negative, Ur Phencyclidine Scrn Negative, Ur Amphetamines Screen Negative, U Benzodiazepines Scrn Negative, Urine Cocaine Screen Negative, U Marijuana (THC) Screen Negative Result diagrams: 10/24/19 20:10 10/24/19 20:10 Orders (Tests/Meds): ED MEDICATIONS Generic Name Dose Route Start Last Admin Trade Name Freq PRN Reason Stop Dose Admin Sodium Chloride 1,000 mls @ 999 mls/hr 10/24/19 20:15 10/24/19 20:20 Sod Chlor 0.9% 1000ml Bag IV 10/24/19 21:15 999 mls/hr .Q1H1M RACHEL Administration Sodium Chloride 1,000 mls @ 999 mls/hr 10/24/19 23:00 10/24/19 22:57 Sod Chlor 0.9% 1000ml Bag IV 10/25/19 00:00 999 mls/hr .Q1H1M RACHEL Administration Sodium Chloride 8 ml 10/24/19 20:43 10/24/19 20:48 So
[2019-10-24 20:22] LABS: Basophils % 0.2 % (0.1-2.0); Eosinophils # 0.1 K/mm3 (0.0-0.4); Eosinophils % 0.4 % (0.1-12.0); Hematocrit 40.4 % (37.0-47.0); Hemoglobin 13.2 g/dL (12.2-16.2); Lymphocytes % 8.6 % (10-50); Mean Corpuscular HGB Conc 32.6 g/dL (31.8-35.4); Mean Corpuscular Volume 88.8 fl (81-99); Mean Platelet Volume 6.9 fl (7.4-10.4); Monocytes # 0.3 K/mm3 (0.1-1.0); Monocytes % 2.7 % (1.7-9.3); Neutrophils # 10.7 K/mm3 (1.8-7.8); Neutrophils % 88.1 % (37.0-80.0); Red Blood Count 4.56 M/mm3 (4.20-5.40); White Blood Count 12.2 K/mm3 (4.8-10.8)
[2019-10-24 20:25] LABS: MANUAL DIFFERENTIAL MANUAL DIFFERENTIAL (MANUAL DIFF); Platelet Count 615 K/mm3 (142-424)
[2019-10-24 20:28] LABS: Lipase 81 U/L (23-300)
[2019-10-24 20:29] LABS: Alanine Aminotransferase 13 U/L (12-78); Albumin Level 5.2 g/dl (3.5-5.0); Albumin/Globulin Ratio 1.5 (1.1-1.8); Alkaline Phosphatase 182 U/L (38-126); Amylase 76 U/L (30-110); Aspartate Amino Transferase 20 U/L (14-36); Bilirubin,Total 0.6 mg/dl (0.2-1.3); Blood Urea Nitrogen 7 mg/dl (7-17); Calcium 10.2 mg/dl (8.4-10.2); Carbon Dioxide 25 mmol/L (22.0-30.0); Chloride 104 mmol/L (98-107); Creatinine Clearance Estimated 69 mL/min (50-200); Estimated Glomerular Filt Rate 71 ml/min (>60); GFR (African American) 86 ML/MIN (>60); Globulin 3.4 g/dL (1.3-3.2); Glucose 169 mg/dl (74-100); Lactic Acid 1.4 mmol/L (0.7-2.1); Sodium 146 mmol/L (136-145); Total Protein,Serum 8.6 g/dl (6.3-8.2)
[2019-10-24 20:30] LABS: Lymphocytes % 5 % (10-50); Neutrophils % 90 % (42-76); Platelet Estimate Moderate Increase; RBC Morphology Normal; Total Cells Counted 100
--- NOTE | 2019-10-24 20:41 | CT_ITS ---
PROCEDURE: CT ABDOMEN PELVIS W CON CLINICAL INDICATION: N/V/D Nausea, vomiting, diarrhea COMPARISON: ABDPELW/O CT ABD PELVIS W/O CONTRAST from 12/13/[address] abdomen pelvis w con from 07/13/2017 TECHNIQUE: IV Contrast: 75ML OPTIRAY 350 Oral Contrast None Axial images obtained with sagittal and coronal reformats. All CT scans at the facility use one or more dose reduction, viz: automated exposure control, ma/kV adjustment per patient size (including targeted exams where dose is matched to indication, i.e. head), or iterative reconstruction technique. FINDINGS: LOWER THORAX: There is a stable 5 mm noncalcified nodule in the left lower lobe. ABDOMEN & PELVIS: There is an 11 mm hypodensity in the hepatic dome. This is well-circumscribed and could be due to a cyst or hemangioma . There is mild thickening of the distal esophagus. The spleen, adrenal glands, and pancreas have an unremarkable appearance. No renal or ureteral calculi. No hydronephrosis. No evidence of appendicitis, diverticulitis, small-bowel obstruction, or free air. No pelvic mass or abnormal fluid collection. Artifact is present from left hip prosthesis. There are degenerative changes in the right hip with sub chondral cystic change of the acetabulum laterally. IMPRESSION: 1. No acute abdominal or pelvic findings. 2. A 11 mm hypodense lesion of the hepatic dome which could be due to a cyst or hemangioma. This does not appear significantly changed dating back to an older exam of 12/13/2012. Dictated by: Neel Dao MD 10/25/2019 07:38 Electronically signed by Neel Dao MD in [place] 10/25/2019 07:38
[2019-10-24 21:10] LABS: C-Reactive Protein 2.9 mg/L (0-4)
[2019-10-24 21:18] LABS: Erythrocyte Sedimentation Rate 52 mm/hr (0-30)
[2019-10-24 21:27] LABS: Microscopic, Urine URINE MICROSCOPIC (MICROSCOPIC)
[2019-10-24 21:29] LABS: Appearance,Urine CLEAR (Clear); Bilirubin,Urine Negative (Negative); Blood, Urine Negative (Negative); Color,Urine YELLOW (Yellow); Glucose,Urine (UA) Negative (Negative); Ketones,Urine 1+ (Negative); Leukocyte Esterase,Urine Negative (Negative); Nitrate,Urine Negative (Negative); PH,Urine 6.5 (5.0-8.5); Protein,Urine Negative (Negative); Urobilinogen,Urine 0.2 EU/dl (0.2)
[2019-10-24 21:32] LABS: Renal Epithelial Cells,Urine Occasional #/lpf (0)
[2019-10-24 22:03] VITALS: BP 198/91; PULSE 101; RESP 16; O2SAT 99
[2019-10-24 22:23] LABS: Barbiturates Screen,Urine Negative ng/ml (<200); Benzodiazepines Screen,Urine Negative ng/ml (<200)
[2019-10-24 22:24] LABS: Amphetamine/Metha Screen,Urine Negative ng/ml (<1000); Cocaine Screen,Urine Negative ng/ml (<300)
[2019-10-24 22:25] LABS: Methadone Screen,Urine Negative ng/ml (<300)
[2019-10-24 22:26] LABS: Cannabinoid Screen,Urine Negative ng/ml (<50); Phencyclidine Screen,Urine Negative ng/ml (<25)
[2019-10-24 22:27] LABS: Opiate Screen,Urine Negative ng/ml (<300)
[2019-10-24 22:38] VITALS: BP 174/70; PULSE 102; RESP 16; O2SAT 99
[2019-10-24 23:38] LABS: Coronavirus 19 IgG Antibody Negative (Negative)
[2019-10-24 23:39] LABS: Coronavirus 19 IgM Antibody Negative (Negative)
[2019-10-25 00:09] VITALS: BP 167/75; PULSE 92; RESP 17; TEMP 37.2; O2SAT 98
== END 2019-10-25 00:12 | disposition home or self-care (01) ==
PROVIDERS: Emergency Medicine; Emergency Provider Family Medicine; PCP Family Medicine
DX: R11.2 Nausea with vomiting, unspecified (principal); R50.9 Fever, unspecified; E87.6 Hypokalemia; Z96.641 Presence of right artificial hip joint
CPT/HCPCS: 74177; 80053; 80305; 81001; 82150; 83605; 83690; 85007; 85025; 85651; 86140; 86328; 87040; 87275; 87276; 96365; 96366; 96375; 96376; 99284; J2405; Q9967

== ENCOUNTER 2020-05-12 09:41 | Emergency (ER) | payer MEDICARE, OTHER, SELFPAY ==
[2020-05-12 09:42] VITALS: BP 182/76; PULSE 94; RESP 20; TEMP 36.9; O2SAT 99; BMI 32.9
--- NOTE | 2020-05-12 10:12 | HMH.EDNVD ---
ED Disposition Clinical Impression: Nausea and vomiting Qualifiers: Vomiting type: unspecified Vomiting Intractability: non-intractable Qualified Code(s): R11.2 - Nausea with vomiting, unspecified Disposition: Home, Self-Care Condition on Discharge: Good Instructions: DI for Diarrhea and Traveler's Diarrhea -- Adult, DI for Diarrhea and Traveler's Diarrhea -- Child, DI for Nausea -- Adult, DI for Nausea -- Child Referrals: Connor Nunez MD [Primary Care Provider] - 05/13/20 Time of Disposition: 11: - Critical Care Critical Care Time: No Attestation: On 05/12/20, the high probability of a clinically significant, sudden or life threatening deterioration of the following system(s) required my full and direct attention, intervention and personal management. The time I documented below is in addition to time spent performing reported procedures but includes the following listed in this critical care notation. Medical Decision Making - Medical Records Medical records reviewed: Yes: I reviewed the patient's medical records. - Beto Inquiry Pt receiving controlled substance: Yes Beto was queried for this patient: No Reason not queried -: Emergent pt cond-no time Risks and benefits of using a controlled substance: were discussed with pt by me Vital Signs: 05/12/20 09:42 05/12/20 10:27 05/12/20 11:10 Temperature 98.5 F Temperature Source Oral Pulse Rate [Right Radial] 94 H 92 H 103 H Respiratory Rate 20 Blood Pressure [Right Arm] 182/76 H 205/78 H 195/97 H Blood Pressure Mean [Right Arm] 111 120 129 Blood Pressure Source [Right Arm] Automatic Cuff Automatic Cuff Automatic Cuff Blood Pressure Position [Right Arm] Sitting Sitting Sitting 02 Sat by Pulse Oximetry 99 100 99 Oxygen Delivery Method Room Air Room Air Room Air - Lab Data Lab Results 05/12/20 10:00: WBC 13.8 H, RBC 5.16, Hgb 15.2, Hct 46.8, MCV 90.7, MCH 29.5, MCHC 32.5, RDW 14.4, Plt Count 547 H, MPV 6.9 L, Neut % (Auto) 90.9 H, Lymph % (Auto) 6.6 L, [place] % (Auto) 1.9, Eos % (Auto) 0.3, Baso % (Auto) 0.4, Neut # (Auto) 12.6 H, Lymph # (Auto) 0.9, [place] # (Auto) 0.3, Eos # (Auto) 0.0, Baso # (Auto) 0.1, Total Counted 100, Neutrophils % (Manual) 85 H, Lymphocytes % (Manual) 11, Monocytes % (Manual) 4, Platelet Estimate Normal, RBC Morphology Normal 05/12/20 10:00: Sodium 142, Potassium 4.1, Chloride 104, Carbon Dioxide 24, Anion Gap 18.1 H, BUN 11, Creatinine 0.90, Estimated Creat Clear 69, Estimated GFR 62, Est GFR ( Amer) 75, Glucose 173 H, Calcium 10.5 H, Total Bilirubin 1.0, AST 26, ALT 22, Alkaline Phosphatase 142 H, Troponin I < 0.01, Total Protein 9.2 H, Albumin 5.5 H, Globulin 3.7 H, Albumin/Globulin Ratio 1.5, Lipase 123 Result diagrams: 05/12/20 10:00 05/12/20 10:00 Orders (Tests/Meds): ED MEDICATIONS Generic Name Dose Route Start Last Admin Trade Name Freq PRN Reason Stop Dose Admin Sodium Chloride 1,000 mls @ 500 mls/hr 05/12/20 09:45 05/12/20 10:12 Sod Chlor 0.9% 1000ml Bag IV 06/11/20 09:44 500 mls/hr .Q2H RACHEL Administration Discontinued Medications Generic Name Dose Route Start Last Admin Trade Name Freq PRN Reason Stop Dose Admin Ketorolac Tromethamine 30 mg 05/12/20 10:09 05/12/20 10:10 Ketorolac 30mg/Ml Vial IV 05/12/20 10:10 30 mg ONCE ONE Administration Ondansetron HCl 4 mg 05/12/20 09:45 05/12/20 10:10 Ondansetron 4mg/2ml Vial IV 05/12/20 09:46 4 mg ONCE ONE Administration ORDERS Category Date Time Status Urinalysis and Microscopic Stat Lab 05/12/20 09:44 Ordered Medical Decision Narrative: 69yo F evaluated for nausea vomiting. Patient is in no acute distress on initial evaluation. Differential diagnosis includes was not limited to: Peptic ulcer disease, foodborne illness, viral process, small bowel obstruction, volvulus, cholecystitis, constipation. IV fluids, Zofran ordered in a standing order. Patient requesting Toradol which was provided. Routine belly la
[2020-05-12 10:24] LABS: Basophils # 0.1 K/mm3 (0-0.2); Basophils % 0.4 % (0.1-2.0); Eosinophils % 0.3 % (0.1-12.0); Hematocrit 46.8 % (37.0-47.0); Hemoglobin 15.2 g/dL (12.2-16.2); Lymphocytes # 0.9 K/mm3 (0.7-4.5); Lymphocytes % 6.6 % (10-50); Mean Corpuscular HGB Conc 32.5 g/dL (31.8-35.4); Mean Corpuscular Hemoglobin 29.5 pg (27.0-31.2); Mean Corpuscular Volume 90.7 fl (81-99); Mean Platelet Volume 6.9 fl (7.4-10.4); Monocytes # 0.3 K/mm3 (0.1-1.0); Monocytes % 1.9 % (1.7-9.3); Neutrophils # 12.6 K/mm3 (1.8-7.8); Neutrophils % 90.9 % (37.0-80.0); Platelet Count 547 K/mm3 (142-424); Red Blood Count 5.16 M/mm3 (4.20-5.40); Red Cell Distribution Width 14.4 % (11.5-17.5); White Blood Count 13.8 K/mm3 (4.8-10.8)
[2020-05-12 10:26] LABS: MANUAL DIFFERENTIAL MANUAL DIFFERENTIAL (MANUAL DIFF)
[2020-05-12 10:27] VITALS: BP 205/78; PULSE 92; O2SAT 100
[2020-05-12 10:38] LABS: Chloride 104 mmol/L (98-107); Sodium 142 mmol/L (136-145)
[2020-05-12 10:39] LABS: Potassium 4.1 mmoL/L (3.5-5.1)
[2020-05-12 10:41] LABS: Alanine Aminotransferase 22 U/L (12-78); Alkaline Phosphatase 142 U/L (38-126); Anion Gap 18.1 mEq/L (5-15); Aspartate Amino Transferase 26 U/L (14-36); Blood Urea Nitrogen 11 mg/dl (7-17); Carbon Dioxide 24 mmol/L (22.0-30.0); Creatinine Clearance Estimated 69 mL/min (50-200); Estimated Glomerular Filt Rate 62 ml/min (>60); GFR (African American) 75 ML/MIN (>60)
[2020-05-12 10:42] LABS: Albumin Level 5.5 g/dl (3.5-5.0); Albumin/Globulin Ratio 1.5 (1.1-1.8); Calcium 10.5 mg/dl (8.4-10.2); Globulin 3.7 g/dL (1.3-3.2); Glucose 173 mg/dl (74-100); Lipase 123 U/L (23-300); Total Protein,Serum 9.2 g/dl (6.3-8.2)
[2020-05-12 10:43] LABS: Lymphocytes % 11 % (10-50); Monocytes % 4 % (2-9); Neutrophils % 85 % (42-76); RBC Morphology Normal; Total Cells Counted 100
[2020-05-12 10:44] LABS: Platelet Estimate Normal
[2020-05-12 10:56] LABS: Troponin I < 0.01 ng/ml (0.00-0.034)
[2020-05-12 11:10] VITALS: BP 195/97; PULSE 103; O2SAT 99
[2020-05-12 11:35] VITALS: BP 174/80; PULSE 102; RESP 20; TEMP 36.9; O2SAT 98
== END 2020-05-12 11:35 | disposition home or self-care (01) ==
PROVIDERS: Emergency Provider Family Medicine; PCP Family Medicine
DX: R11.2 Nausea with vomiting, unspecified (principal); I10 Essential (primary) hypertension; E78.5 Hyperlipidemia, unspecified; E87.6 Hypokalemia; Z79.899 Other long term (current) drug therapy
CPT/HCPCS: 80053; 83690; 84484; 85007; 85025; 96365; 96375; 99282; J2405

== ENCOUNTER 2021-02-08 13:27 | Emergency (ER) | payer MEDICARE, OTHER, SELFPAY ==
[2021-02-08] VITALS (8 sets, daily range): BP systolic 180–204; BP diastolic 93–117; PULSE 97–108; RESP 18; TEMP 36.9; O2SAT 95–100; BMI 30.1
[2021-02-08 15:44] LABS: Coronavirus 19, PCR Not Detected (NotDetected); Influenza A, PCR Not Detected (NotDetected); Influenza B, PCR Not Detected (NotDetected)
[2021-02-08 15:47] LABS: Basophils % 0.2 % (0.1-2.0); Chloride 98 mmol/L (98-107); Eosinophils # 0.1 K/mm3 (0.0-0.4); Eosinophils % 0.6 % (0.1-12.0); Lymphocytes % 6.4 % (10-50); Mean Corpuscular Hemoglobin 30.1 pg (27.0-31.2); Mean Corpuscular Volume 94.1 fl (81-99); Mean Platelet Volume 7.8 fl (7.4-10.4); Monocytes # 0.7 K/mm3 (0.1-1.0); Monocytes % 4.6 % (1.7-9.3); Neutrophils # 13.9 K/mm3 (1.8-7.8); Neutrophils % 88.1 % (37.0-80.0); Platelet Count 492 K/mm3 (142-424); Potassium 3.3 mmoL/L (3.5-5.1); Red Blood Count 5.32 M/mm3 (4.20-5.40); Red Cell Distribution Width 14.4 % (11.5-17.5); Sodium 142 mmol/L (136-145); White Blood Count 15.8 K/mm3 (4.8-10.8)
[2021-02-08 15:49] LABS: Blood Urea Nitrogen 8 mg/dl (7-17); Creatinine Clearance Estimated 65 mL/min (50-200); Estimated Glomerular Filt Rate 71 ml/min (>60); GFR (African American) 86 ML/MIN (>60)
[2021-02-08 15:50] LABS: Alanine Aminotransferase 18 U/L (12-78); Albumin Level 5.2 g/dl (3.5-5.0); Albumin/Globulin Ratio 1.4 (1.1-1.8); Alkaline Phosphatase 108 U/L (38-126); Anion Gap 17.3 mEq/L (5-15); Aspartate Amino Transferase 31 U/L (14-36); Bilirubin,Total 0.9 mg/dl (0.2-1.3); Carbon Dioxide 30 mmol/L (22.0-30.0); Globulin 3.6 g/dL (1.3-3.2); Total Protein,Serum 8.8 g/dl (6.3-8.2)
[2021-02-08 15:51] LABS: Calcium 10.2 mg/dl (8.4-10.2); Glucose 155 mg/dl (74-100)
[2021-02-08 15:54] LABS: MANUAL DIFFERENTIAL MANUAL DIFFERENTIAL (MANUAL DIFF)
--- NOTE | 2021-02-08 16:00 | HMH.EDGENADL ---
ED Disposition Clinical Impression: Viral illness Disposition: Home, Self-Care Condition on Discharge: Good Additional Instructions: Tylenol as needed for fever or pain. Zofran as needed for nausea or vomiting. Follow-up with primary care provider if not improved in 2 to 3 days. Return to the emergency department if symptoms worsen. Prescriptions: Ondansetron [Zofran 4mg ODT] 4 mg PO TIDP PRN #10 tab PRN Reason: Nausea And Vomiting Transmission Status: Received by [facility] Referrals: Connor Nunez MD [Primary Care Provider] - - Critical Care Critical Care Time: No Attestation: On 02/08/21, the high probability of a clinically significant, sudden or life threatening deterioration of the following system(s) required my full and direct attention, intervention and personal management. The time I documented below is in addition to time spent performing reported procedures but includes the following listed in this critical care notation. Medical Decision Making - Beto Inquiry Pt receiving controlled substance: No Vital Signs: 02/08/21 15:00 02/08/21 15:16 02/08/21 15:45 Temperature 98.5 F Temperature Source Oral Pulse Rate 100 H 103 H Pulse Rate [Right Radial] 97 H Respiratory Rate 18 Blood Pressure 194/94 H Blood Pressure [Right Arm] 184/93 H Blood Pressure Mean 116 Blood Pressure Mean [Right Arm] 123 Blood Pressure Source [Right Arm] Automatic Cuff Blood Pressure Position [Right Arm] Sitting 02 Sat by Pulse Oximetry 98 99 97 Oxygen Delivery Method Room Air 02/08/21 16:15 02/08/21 16:37 02/08/21 17:00 Temperature Temperature Source Pulse Rate 106 H 101 H 99 H Pulse Rate [Right Radial] Respiratory Rate Blood Pressure 204/97 H 195/95 H Blood Pressure [Right Arm] Blood Pressure Mean 129 123 Blood Pressure Mean [Right Arm] Blood Pressure Source [Right Arm] Blood Pressure Position [Right Arm] 02 Sat by Pulse Oximetry 97 95 100 Oxygen Delivery Method 02/08/21 17:30 Temperature Temperature Source Pulse Rate 108 H Pulse Rate [Right Radial] Respiratory Rate Blood Pressure 180/99 H Blood Pressure [Right Arm] Blood Pressure Mean 126 Blood Pressure Mean [Right Arm] Blood Pressure Source [Right Arm] Blood Pressure Position [Right Arm] 02 Sat by Pulse Oximetry 98 Oxygen Delivery Method - Lab Data Lab Results 02/08/21 15:20: SARS-CoV-2 (PCR) Not detected, Influenza A Untype (PCR) Not detected, Influenza Type B (PCR) Not detected 02/08/21 15:25: WBC 15.8 H, RBC 5.32, Hgb 16.0, Hct 50.0 H, MCV 94.1, MCH 30.1, MCHC 32.0, RDW 14.4, Plt Count 492 H, MPV 7.8, Neut % (Auto) 88.1 H, Lymph % (Auto) 6.4 L, [place] % (Auto) 4.6, Eos % (Auto) 0.6, Baso % (Auto) 0.2, Neut # (Auto) 13.9 H, Lymph # (Auto) 1.0, [place] # (Auto) 0.7, Eos # (Auto) 0.1, Baso # (Auto) 0.0, Total Counted 100, Neutrophils % (Manual) 82 H, Lymphocytes % (Manual) 8 L, Monocytes % (Manual) 9, Eosinophils % (Manual) 1, Nucleated RBCs 1, Platelet Estimate Slight increase 02/08/21 15:25: Sodium 142, Potassium 3.3 L, Chloride 98, Carbon Dioxide 30, Anion Gap 17.3 H, BUN 8, Creatinine 0.80, Estimated Creat Clear 65, Estimated GFR 71, Est GFR ( Amer) 86, Glucose 155 H, Calcium 10.2, Total Bilirubin 0.9, AST 31, ALT 18, Alkaline Phosphatase 108, Total Protein 8.8 H, Albumin 5.2 H, Globulin 3.6 H, Albumin/Globulin Ratio 1.4 02/08/21 16:35: Urine Color Yellow, Urine Appearance Sl cloudy, Urine pH 6.5, Ur Specific [place] 1.025, Urine Protein 2+, Urine Glucose (UA) Negative, Urine Ketones Negative, Urine Blood 1+, Urine Nitrate Negative, Urine Bilirubin Negative, Urine Urobilinogen 0.2, Ur Leukocyte Esterase Negative, Urine RBC 5-10, Urine WBC 10-20, Ur Squamous Epith Cells Occasional, Urine Bacteria 1+ 02/08/21 18:00: Lactate 0.8 Result diagrams: 02/08/21 15:25 02/08/21 15:25 Orders (Tests/Meds): ED MEDICATIONS Discontinued Medications Generic Name Dose Rou
[2021-02-08 16:43] LABS: Microscopic, Urine URINE MICROSCOPIC (MICROSCOPIC)
[2021-02-08 17:22] LABS: Eosinophils % 1 % (0-3); Lymphocytes % 8 % (10-50); Monocytes % 9 % (2-9); Neutrophils % 82 % (42-76); Nucleated Red Blood Cells 1; Total Cells Counted 100
[2021-02-08 17:23] LABS: Platelet Estimate Slight Increase
[2021-02-08 17:43] LABS: Appearance,Urine SL CLOUDY (Clear); Bilirubin,Urine Negative (Negative); Blood, Urine 1+ (Negative); Color,Urine YELLOW (Yellow); Glucose,Urine (UA) Negative (Negative); Ketones,Urine Negative (Negative); Leukocyte Esterase,Urine Negative (Negative); Nitrate,Urine Negative (Negative); PH,Urine 6.5 (5.0-8.5); Protein,Urine 2+ (Negative); Specific Gravity, Urine 1.025 (1.005-1.030); Urobilinogen,Urine 0.2 EU/dl (0.2)
[2021-02-08 18:27] LABS: Lactic Acid 0.8 mmol/L (0.7-2.1)
[2021-02-08 18:51] LABS: Bacteria,Urine 1+ /lpf; Squamous Epithelial Cell,Urine Occasional #/hpf (0-5)
== END 2021-02-08 19:10 | disposition home or self-care (01) ==
PROVIDERS: Emergency Provider Emergency Medicine; PCP Family Medicine
DX: B34.9 Viral infection, unspecified (principal); Z20.822 Contact with and (suspected) exposure to COVID-19; E78.5 Hyperlipidemia, unspecified; I10 Essential (primary) hypertension
CPT/HCPCS: 80053; 81001; 83605; 85007; 85025; 87040; 87086; 96365; 96375; 99283; C9803; J2405; U0003; U0005

== ENCOUNTER → 2021-03-30 07:47 | Outpatient (CLI) | payer MEDICARE, OTHER, SELFPAY ==
--- NOTE | 2021-03-30 07:50 | US_ITS ---
PROCEDURE: US ABDOMEN COMPLETE CLINICAL INDICATION: RUQ PAIN,VOMITING COMPARISON: CT CT ABDOMEN PELVIS W CON from 10/24/2019 FINDINGS: PANCREAS: Not well delineated due to overlying bowel gas LIVER: No focal liver lesions demonstrated. Homogeneous echogenicity. No intrahepatic biliary ductal dilatation evident. There is appropriate direction of blood flow within a non dilated portal vein. 9 mm cyst is present in the mid aspect of the liver. RIGHT KIDNEY: Unremarkable. Normal size and echogenicity. No hydronephrosis LEFT KIDNEY: Unremarkable. Normal size and echogenicity. No hydronephrosis GALLBLADDER: No gallstones , no gallbladder wall thickening or pericholecystic fluid. Common bile duct is slightly prominent at 8 mm. AORTA: No evidence of aneurysmal dilatation. SPLEEN: Unremarkable. Normal size and echogenicity ASCITES: None demonstrated. IMPRESSION: 1. Small hepatic cyst. 2. No gallstones 3. Mild prominence of the common bile duct at 8 mm.. The pancreas is not well delineated. CT or MRI of with pancreatic protocol may provide further evaluation in this patient with a prominent common bile duct and poor visualization of the pancreas. Dictated by: Neel Dao MD 03/31/2021 09:31 Neel Dao MD in [place] 03/31/2021 09:31
== END ==
PROVIDERS: PCP Family Medicine; Visit Provider Family Medicine
DX: R10.11 Right upper quadrant pain (principal); R11.10 Vomiting, unspecified
CPT/HCPCS: 76700

== ENCOUNTER → 2021-04-27 10:27 | Outpatient (CLI) | payer MEDICARE, OTHER, SELFPAY ==
--- NOTE | 2021-04-27 | CT_ITS ---
FINAL REPORT TECHNIQUE: Pre- and postcontrast images of the abdomen were performed by computed tomography. CLINICAL HISTORY: vomiting, ruq pain COMPARISON: October 24, 2019 FINDINGS: There is minimal patchy airspace opacity in the lung bases which could be due to minimal acute pneumonia. The liver is normal in size and attenuation. There is a benign-appearing cyst in the superior right lobe of the liver, appearing stable. The gallbladder is mildly distended. Calcified granulomas are noted in the spleen. The adrenals are normal. The pancreas is unremarkable. The kidneys enhance appropriately. A large amount of stool is seen throughout the colon. On the pre contrast images there is no evidence of renal stones. On the delayed phase images there is opacification of nondilated pelvicalyceal system. IMPRESSION: Minimal patchy airspace infiltrates at the bases which could be due to mild acute pneumonia. Benign appearing cyst in the superior right lobe of the liver, stable. Large amount of retained stool throughout the colon. Reviewed, Interpreted and Dictated by Celestine Jones MD Transcribed by Ashley Shannon Authenticated by Celestine Jones MD on 04/27/2021 01:29:56 PM [facility]
[2021-04-27 12:02] LABS: Blood Urea Nitrogen 22 mg/dl (7-17); Estimated Glomerular Filt Rate 62 ml/min (>60); GFR (African American) 75 ML/MIN (>60)
== END ==
PROVIDERS: PCP Family Medicine; Visit Provider Family Medicine
DX: R10.11 Right upper quadrant pain (principal); R11.10 Vomiting, unspecified
CPT/HCPCS: 36415; 74170; 82565; 84520; Q9967

== ENCOUNTER → 2021-07-12 10:56 | Outpatient (POV) | payer MEDICARE, OTHER, SELFPAY ==
[2021-07-12 11:12] VITALS: BP 140/80; PULSE 98; RESP 18; TEMP 36.6; O2SAT 99; BMI 32.0
--- NOTE | 2021-07-12 11:51 | HMH.PMCON ---
Assessment and Plan (1) Pain, chronic Status: Chronic Qualifiers: Chronic pain type: chronic pain syndrome Qualified Code(s): G89.4 - Chronic pain syndrome Category: Medical Code(s): G89.29 - Other chronic pain - Assessment and plan all Dx Assessment and Plan for all problems:: Mariya in detail with the patient regarding risk and benefits of intrathecal pain pump. Patient has some interest in this mode of pain therapy. The nurse spoke with her at length after our evaluation. Answered questions. Gave the patient some literature. Patient will call us back with direction. HPI - Data of Consult Consult date: 07/12/21 Requesting Physician: Byron Mauro CRNA - Consult Narrative History of present illness: Ms. Atkinson is a 70 year old female comes to our clinic today for initial evaluation regarding chronic pain syndrome. Patient has had a longstanding history of chronic pain for 30 years. Patient is currently under the care of her primary care and receives [place] 10 mg 1 p.o. 5 times daily. Patient has had multiple joint replacements. Left shoulder, right shoulder, right hip. Left knee. Patient does have some low back pain she describes as constant, dull, aching at times. She also complains of some radiculopathy symptoms in the bilateral legs. However, her main complaint is pain in all joints. CC: Byron Mauro CRNA [facility] History I have reviewed the patient's past medical history: Yes Medical History: Reports:: Hyperlipidemia, Hypertension Denies:: Cancer, Diabetes Mellitus Type 1, Diabetes Mellitus Type 2, Internal Pacemaker, MRSA *Have you ever received a pneumonia vaccine?: Yes *Have you received a flu vaccine this season?: Yes Other Medical History: Reports: Arthritis, Other (hypokalemia) Laterality Cases: Left: Arthroscopy Shoulder, Right: Total Hip Replacement Other Surgeries: No: Pacemaker Amputation: No Fractures: No - *Social History Smoking Status: Never smoker Alcohol Intake: never *Occupational Status:: retired Housing: house Household Members: spouse *Travel in the last 8 weeks: None Family Hx:: Unable to obtain Review of Systems - Review of Systems Review of systems:: pertinent systems reviewed and negative unless documented below Meds Home Medications Medication Instructions Recorded Confirmed Type Albuterol Sulfate [Proair Hfa 2 puffs IH Q4HP PRN 06/07/17 07/12/21 History 90mcg/puff Inh] Atorvastatin Calcium [Lipitor 20mg 20 mg PO DAILY 06/07/17 07/12/21 History Tab] Montelukast Sodium [Montelukast 10 mg PO HS 06/07/17 07/12/21 History 10mg Tab] Oxycodone HCl/Acetaminophen 325 mg PO Q4HP PRN 06/07/17 07/12/21 History [Oxycodone W/Apap 325mg Tablet] Progesterone, Micronized 200 mg PO DAILY 06/07/17 07/12/21 History [Progesterone] Trazodone HCl 150 mg PO NEEDED PRN 06/07/17 07/12/21 History cloNIDine HCL [cloNIDine 0.1mg 0.1 mg PO BID 06/07/17 07/12/21 History Tablet] estradioL [Estradiol] 2 mg PO DIRECTED 06/07/17 07/12/21 History Benzocaine/Menthol [Cepacol 1 each PO Q2H PRN #1 box 04/06/19 07/12/21 Rx Lozenges;16 Per Box] Acyclovir [Zovirax 400mg tablet] 400 mg PO DAILY 10/24/19 07/12/21 History Amlodipine Besylate [Amlodipine 10 mg PO DAILY 10/24/19 07/12/21 History 10mg Tab] Diphenoxylate HCl/Atropine 2 mg PO DIRECTED 10/24/19 07/12/21 History [Lomotil 2.5-0.025 mg Tablet] Furosemide [Furosemide 40MG tAB] 40 mg PO NEEDED PRN 10/24/19 07/12/21 History Levomilnacipran HCl [Fetzima] 40 mg PO DAILY 10/24/19 07/12/21 History ondansetron HCL [Zofran 4mg Tab] 4 mg PO QID #20 tab 10/24/19 07/12/21 Rx Ondansetron [Zofran 4mg ODT] 4 mg PO Q6HP PRN #10 tab 05/12/20 07/12/21 Rx Ondansetron [Zofran 4mg ODT] 4 mg PO TIDP PRN #10 tab 02/08/21 07/12/21 Rx Allergies Allergy/AdvReac Type Severity Reaction Status Date / Time No Known Allergies Allergy Verified 04/06/19 07:32 Objective Vital signs: Tem
== END ==
PROVIDERS: Visit Provider Nurse Anesthetist, Certified Registered
DX: G89.4 Chronic pain syndrome (principal)
CPT/HCPCS: 99202; G0463

== ENCOUNTER 2021-08-07 17:17 | Emergency (ER) | payer MEDICARE, OTHER, SELFPAY ==
[2021-08-07 17:18] VITALS: BP 145/75; PULSE 89; RESP 16; TEMP 36.6; O2SAT 98; BMI 32.0
--- NOTE | 2021-08-07 17:57 | HMH.EDUTC ---
[facility] Disposition Clinical Impression: Rash Disposition: Home, Self-Care Condition on Discharge: Good Instructions: DI for Rash, Triamcinolone Topical Additional Instructions: Look around and make sure to check to see what may have come into contact with your skin on your back Use cream as directed Over the counter Benadryl may help with itching Oatmeal baths may help to soothe the skin and help clear the rash Return if needed Follow up with your Family Doctor if no improvement or any worsening of symptoms Straight to ER if any life threatening symptoms Prescriptions: Triamcinolone Acetonide [Kenalog 0.1% cream 80gm tube] 1 applicatio TOPICAL BID #80 gm Transmission Status: Pending to [facility] Referrals: Connor Nunez MD [Primary Care Provider] - As needed Time of Disposition: 18:29 Medical Decision Making - Beto Inquiry Pt receiving controlled substance: No Beto was queried for this patient: No Vital Signs: 08/07/21 17:18 08/07/21 17:59 Temperature 98 F 98.0 F Temperature Source Oral Oral Pulse Rate [Radial] 89 89 Respiratory Rate 16 16 Blood Pressure [Right Arm] 145/75 H 135/70 Blood Pressure Mean [Right Arm] 98 91 Blood Pressure Position [Right Arm] Sitting 02 Sat by Pulse Oximetry 98 98 Oxygen Delivery Method Room Air Orders (Tests/Meds): ED MEDICATIONS Discontinued Medications Generic Name Dose Route Start Last Admin Trade Name Rhiannon PRN Reason Stop Dose Admin Methylprednisolone Sodium Succinate 125 mg 08/07/21 18:08 08/07/21 18:16 Methylprednisolone Sod Succ 125mg Vial IM 08/07/21 18:09 125 mg ONCE ONE Administration [facility] HPI - General Stated complaint: bumps on back Time Seen by Provider: 08/07/21 18:04 Mode of Arrival: Ambulatory Source of Information: Patient Limitations: No Limitations Description of Symptoms (Recalled from Triage Doc. by RN): to ed per pvt car with c/o rash to back starting sunday. c/o itching states she took 3 benadryl at 3pm. pt denies any sob - History of Present Illness Provider Complaint: Patient states that she noticed rash on her back on Sunday and thought she had been bitten by some bugs State that she has been itching them and they have continued to spread on her back States that she noticed earlier today she had some on her right side States that she has been taking benadryl but hasnt helped much so she came in to get it checked out - Related Data Home Medications Medication Instructions Recorded Confirmed Albuterol Sulfate [Proair Hfa 2 puffs IH Q4HP PRN 06/07/17 07/12/21 90mcg/puff Inh] Atorvastatin Calcium [Lipitor 20mg 20 mg PO DAILY 06/07/17 07/12/21 Tab] Montelukast Sodium [Montelukast 10 mg PO HS 06/07/17 07/12/21 10mg Tab] Oxycodone HCl/Acetaminophen 325 mg PO Q4HP PRN 06/07/17 07/12/21 [Oxycodone W/Apap 325mg Tablet] Progesterone, Micronized 200 mg PO DAILY 06/07/17 07/12/21 [Progesterone] Trazodone HCl 150 mg PO NEEDED PRN 06/07/17 07/12/21 cloNIDine HCL [cloNIDine 0.1mg 0.1 mg PO BID 06/07/17 07/12/21 Tablet] estradioL [Estradiol] 2 mg PO DIRECTED 06/07/17 07/12/21 Acyclovir [Zovirax 400mg tablet] 400 mg PO DAILY 10/24/19 07/12/21 Amlodipine Besylate [Amlodipine 10 mg PO DAILY 10/24/19 07/12/21 10mg Tab] Diphenoxylate HCl/Atropine 2 mg PO DIRECTED 10/24/19 07/12/21 [Lomotil 2.5-0.025 mg Tablet] Furosemide [Furosemide 40MG tAB] 40 mg PO NEEDED PRN 10/24/19 07/12/21 Levomilnacipran HCl [Fetzima] 40 mg PO DAILY 10/24/19 07/12/21 Previous Rx's Medication Instructions Recorded Benzocaine/Menthol [Cepacol 1 each PO Q2H PRN #1 box 04/06/19 Lozenges;16 Per Box] ondansetron HCL [Zofran 4mg Tab] 4 mg PO QID #20 tab 10/24/19 Ondansetron [Zofran 4mg ODT] 4 mg PO Q6HP PRN #10 tab 02/10/21 Ondansetron [Zofran 4mg ODT] 4 mg PO TIDP PRN #10 tab 02/08/21 Triamcinolone Acetonide [Kenalog 1 applicatio TOPICAL BID #80 gm 08/07/21 0.1% cream 80gm tube]
[2021-08-07 17:59] VITALS: BP 135/70; PULSE 89; RESP 16; TEMP 36.7; O2SAT 98; BMI 32.2
[2021-08-07 18:40] VITALS: BP 135/70; PULSE 89; RESP 16; TEMP 36.7
== END 2021-08-07 18:40 | disposition home or self-care (01) ==
PROVIDERS: Emergency Provider Nurse Practitioner; PCP Family Medicine
DX: L50.9 Urticaria, unspecified (principal); I10 Essential (primary) hypertension; E78.5 Hyperlipidemia, unspecified; M19.90 Unspecified osteoarthritis, unspecified site; E87.6 Hypokalemia; Z79.51 Long term (current) use of inhaled steroids; Z79.52 Long term (current) use of systemic steroids; Z79.899 Other long term (current) drug therapy; Z79.890 Hormone replacement therapy; Z96.641 Presence of right artificial hip joint
CPT/HCPCS: 96372; 99213; G0463

== ENCOUNTER → 2021-08-23 08:09 | Outpatient (CLI) | payer MEDICARE, OTHER, SELFPAY ==
--- NOTE | 2021-08-23 08:15 | MM_ITS ---
PROCEDURE INFORMATION: Exam: MG Bilateral Screening 3D Mammography Exam date and time: 08/23/2021 8:24 AM Age: 70 years old Clinical indication: Screening examination. Her mother had breast cancer in her 60s and a maternal aunt had breast cancer. TECHNIQUE: Imaging protocol: Bilateral Screening tomosynthesis and 2D mammography including computer-aided detection (CAD) when performed. COMPARISON: 1. MG DMSB DIG MAMM-SCREEN MERRY 01/19/2016 4:01 PM 2. MG DMSB DIG MAMM-SCREEN MERRY 01/30/2014 11:20 AM 3. MG DMSB DIG MAMM-SCREEN MERRY 08/28/2012 5:16 PM 4. MG DMSB DIGITAL MAMM-SCREEN BILATERAL 05/16/2011 2:03 PM FINDINGS: MAMMOGRAPHY: Breast composition: The breasts are heterogeneously dense, which may obscure small masses. Mass: None. Architectural distortion: None. Calcifications: No suspicious calcifications. Asymmetric density: None. Skin thickening: None. Axillary adenopathy: None. IMPRESSION: No mammographic evidence of malignancy. Annual screening is recommended unless otherwise clinically indicated. ASSESSMENT: BI-RADS Category 1: Negative
== END ==
PROVIDERS: PCP Family Medicine; Visit Provider Family Medicine
DX: Z12.31 Encounter for screening mammogram for malignant neoplasm of breast (principal)
CPT/HCPCS: 77063; 77067

== ENCOUNTER 2021-09-26 12:52 | Emergency (ER) | payer MEDICARE, OTHER, SELFPAY ==
[2021-09-26] VITALS (12 sets, daily range): BP systolic 157–186; BP diastolic 68–97; PULSE 77–107; RESP 12–20; TEMP 36.8; O2SAT 95–99; BMI 29.2
--- NOTE | 2021-09-26 13:04 | HMH.EDNVD ---
ED Disposition Clinical Impression: Hypokalemia Vomiting Qualifiers: Vomiting type: unspecified Nausea presence: with nausea Qualified Code(s): R11.2 - Nausea with vomiting, unspecified Disposition: Home, Self-Care Condition on Discharge: Fair Instructions: DI for Nausea -- Adult, Nausea and Vomiting-Adult Prescriptions: Potassium Chloride [Klor-Con 8] 8 meq PO DAILY #7 tab Transmission Status: Received by [facility] Referrals: Connor Nunez MD [Primary Care Provider] - - Critical Care Critical Care Time: No Attestation: On , the high probability of a clinically significant, sudden or life threatening deterioration of the following system(s) required my full and direct attention, intervention and personal management. The time I documented below is in addition to time spent performing reported procedures but includes the following listed in this critical care notation. Medical Decision Making - Medical Records Medical records reviewed: Yes: I reviewed the patient's medical records. - Beto Inquiry Pt receiving controlled substance: No Vital Signs: 09/26/21 12:53 09/26/21 13:35 09/26/21 14:25 Temperature 98.2 F Temperature Source Oral Pulse Rate 92 H Pulse Rate [Left Radial] 97 H Respiratory Rate 18 Blood Pressure 161/76 H 174/83 H Blood Pressure [Right Arm] 174/86 H Blood Pressure Mean Blood Pressure Mean [Right Arm] 115 Blood Pressure Source [Right Arm] Automatic Cuff Blood Pressure Position [Right Arm] Sitting 02 Sat by Pulse Oximetry 97 99 95 Oxygen Delivery Method Room Air Room Air 09/26/21 14:44 09/26/21 14:52 09/26/21 15:12 Temperature Temperature Source Pulse Rate 100 H 77 104 H Pulse Rate [Left Radial] Respiratory Rate 12 18 14 Blood Pressure 173/86 H 168/87 H 157/86 H Blood Pressure [Right Arm] Blood Pressure Mean 115 114 113 Blood Pressure Mean [Right Arm] Blood Pressure Source [Right Arm] Blood Pressure Position [Right Arm] 02 Sat by Pulse Oximetry 98 99 97 Oxygen Delivery Method 09/26/21 15:25 09/26/21 15:32 Temperature Temperature Source Pulse Rate 101 H 101 H Pulse Rate [Left Radial] Respiratory Rate 12 13 Blood Pressure 166/68 H 177/97 H Blood Pressure [Right Arm] Blood Pressure Mean 100 123 Blood Pressure Mean [Right Arm] Blood Pressure Source [Right Arm] Blood Pressure Position [Right Arm] 02 Sat by Pulse Oximetry 98 98 Oxygen Delivery Method - Lab Data Lab results reviewed: Yes: I reviewed the patient's lab results. Lab Results 09/26/21 13:30: WBC 10.1, RBC 4.83, Hgb 14.3, Hct 45.8, MCV 94.8, MCH 29.5, MCHC 31.1 L, RDW 14.9, Plt Count 491 H, MPV 7.5, Neut % (Auto) 84.0 H, Lymph % (Auto) 11.6, [place] % (Auto) 3.3, Eos % (Auto) 0.3, Baso % (Auto) 0.7, Neut # (Auto) 8.5 H, Lymph # (Auto) 1.2, [place] # (Auto) 0.3, Eos # (Auto) 0.0, Baso # (Auto) 0.1 09/26/21 13:30: Sodium 142, Potassium 2.7 L*, Chloride 106, Carbon Dioxide 26, Anion Gap 12.7, BUN 5 L, Creatinine 0.70, Estimated Creat Clear 60, Estimated GFR 83, Est GFR ( Amer) 100, Glucose 195 H, Calcium 9.8, Total Bilirubin 0.8, AST 28, ALT 22, Alkaline Phosphatase 123, Total Protein 7.8, Albumin 4.8, Globulin 3.0, Albumin/Globulin Ratio 1.6, Lipase 57 Result diagrams: 09/26/21 13:30 09/26/21 13:30 Orders (Tests/Meds): ED MEDICATIONS Discontinued Medications Generic Name Dose Route Start Last Admin Trade Name Freq PRN Reason Stop Dose Admin Potassium Chloride/Water 100 mls @ 100 mls/hr 09/26/21 14:07 09/26/21 14:11 Potassium Chloride 10meq/100ml Ivpb IV 09/26/21 15:06 100 mls/hr ONCE ONE Administration Ketorolac Tromethamine 30 mg 09/26/21 14:04 09/26/21 14:10 Ketorolac 30mg/Ml Vial IV 09/26/21 14:05 30 mg ONCE ONE Administration Metoclopramide HCl 10 mg 09/26/21 14:48 09/26/21 14:51 Metoclopramide Hcl 10mg/2ml Vial IVP 09/26/21 14:49 10 mg ONCE ONE Administration Ondansetron HC
--- NOTE | 2021-09-26 13:05 | PC.NURSE ---
Adrienne Devlin rounded on patient and family member.
[2021-09-26 13:42] LABS: Basophils # 0.1 K/mm3 (0-0.2); Basophils % 0.7 % (0.1-2.0); Eosinophils % 0.3 % (0.1-12.0); Hematocrit 45.8 % (37.0-47.0); Hemoglobin 14.3 g/dL (12.2-16.2); Lymphocytes # 1.2 K/mm3 (0.7-4.5); Lymphocytes % 11.6 % (10-50); Mean Corpuscular HGB Conc 31.1 g/dL (31.8-35.4); Mean Corpuscular Hemoglobin 29.5 pg (27.0-31.2); Mean Corpuscular Volume 94.8 fl (81-99); Mean Platelet Volume 7.5 fl (7.4-10.4); Monocytes # 0.3 K/mm3 (0.1-1.0); Monocytes % 3.3 % (1.7-9.3); Neutrophils # 8.5 K/mm3 (1.8-7.8); Platelet Count 491 K/mm3 (142-424); Red Blood Count 4.83 M/mm3 (4.20-5.40); Red Cell Distribution Width 14.9 % (11.5-17.5); White Blood Count 10.1 K/mm3 (4.8-10.8)
[2021-09-26 13:43] LABS: Chloride 106 mmol/L (98-107)
[2021-09-26 13:44] LABS: Sodium 142 mmol/L (136-145)
[2021-09-26 13:47] LABS: Alanine Aminotransferase 22 U/L (12-78); Albumin Level 4.8 g/dl (3.5-5.0); Albumin/Globulin Ratio 1.6 (1.1-1.8); Alkaline Phosphatase 123 U/L (38-126); Anion Gap 12.7 mEq/L (5-15); Aspartate Amino Transferase 28 U/L (14-36); Bilirubin,Total 0.8 mg/dl (0.2-1.3); Blood Urea Nitrogen 5 mg/dl (7-17); Calcium 9.8 mg/dl (8.4-10.2); Carbon Dioxide 26 mmol/L (22.0-30.0); Creatinine Clearance Estimated 60 mL/min (50-200); Estimated Glomerular Filt Rate 83 ml/min (>60); GFR (African American) 100 ML/MIN (>60); Glucose 195 mg/dl (74-100); Lipase 57 U/L (23-300); Total Protein,Serum 7.8 g/dl (6.3-8.2)
[2021-09-26 13:54] LABS: Potassium 2.7 mmoL/L (3.5-5.1)
--- NOTE | 2021-09-26 13:54 | PC.NURSE ---
notified ER of critical potassium at this time.
--- NOTE | 2021-09-26 14:09 | PC.NURSE ---
Addendum entered by Jamia Oleary RN 09/26/21 14:09: aware and meds given per may Original Note: pt is vomiting unable to take po potassium at this time
--- NOTE | 2021-09-26 14:11 | PC.NURSE ---
Adrienne Devlin made patient rounds
--- NOTE | 2021-09-26 14:11 | PC.NURSE ---
PT placed on playground monitor for potassium infusion.
--- NOTE | 2021-09-26 14:42 | PC.NURSE ---
Pt given extra blankets
--- NOTE | 2021-09-26 15:40 | PC.NURSE ---
potassium completed, pt tolerated well.
[2021-09-26 16:18] LABS: Microscopic, Urine URINE MICROSCOPIC (MICROSCOPIC)
[2021-09-26 16:29] LABS: Appearance,Urine CLEAR (Clear); Bilirubin,Urine Negative (Negative); Blood, Urine Negative (Negative); Color,Urine YELLOW (Yellow); Glucose,Urine (UA) Negative (Negative); Ketones,Urine Negative (Negative); Leukocyte Esterase,Urine Negative (Negative); Nitrate,Urine Negative (Negative); Protein,Urine Negative (Negative); Specific Gravity, Urine 1.015 (1.005-1.030); Urobilinogen,Urine 0.2 EU/dl (0.2)
== END 2021-09-26 16:52 | disposition home or self-care (01) ==
PROVIDERS: Emergency Provider Emergency Medicine; PCP Family Medicine
DX: R11.2 Nausea with vomiting, unspecified (principal); E87.6 Hypokalemia; Z79.899 Other long term (current) drug therapy; Z79.890 Hormone replacement therapy; E78.5 Hyperlipidemia, unspecified; I10 Essential (primary) hypertension
CPT/HCPCS: 80053; 81001; 83690; 85025; 96365; 96375; 99284; J2405

== ENCOUNTER 2022-01-09 09:03 | Emergency (ER) | payer MEDICARE, OTHER, SELFPAY ==
[2022-01-09] VITALS (13 sets, daily range): BP systolic 172–209; BP diastolic 74–100; PULSE 95–113; RESP 16–18; TEMP 36.6–36.9; O2SAT 95–100; BMI 29.2
--- NOTE | 2022-01-09 09:14 | HMH.EDGENADL ---
Discharge Plan Disposition Patient Disposition: Home, Self-Care Condition: Good Prescriptions Prescriptions: New ondansetron 4 mg tablet,disintegrating 4 mg PO Q6H PRN (Reason: nausea and vomiting) Qty: 10 0RF No Action furosemide 40 MG tablet 40 mg PO NEEDED PRN (Reason: Edema) diphenoxylate-atropine 1 EACH tablet 2 mg PO DIRECTED acyclovir 400 MG tablet 400 mg PO DAILY amlodipine 10 MG tablet 10 mg PO DAILY levomilnacipran 40 mg capsule,extended release 24 hr 40 mg PO DAILY ondansetron HCl 4 MG tablet 4 mg PO QID Qty: 20 0RF ondansetron 4 MG tablet,disintegrating 4 mg PO Q6HP PRN (Reason: Nausea And Vomiting) Qty: 10 0RF atorvastatin 20 MG tablet 20 mg PO DAILY oxycodone-acetaminophen 1 EACH tablet 325 mg PO Q4HP PRN (Reason: Breakthru Mild Pain) Rx Instructions: pt states she takes 5x a day clonidine HCl 0.1 MG tablet 0.1 mg PO BID progesterone micronized 200 MG capsule 200 mg PO DAILY montelukast 10 MG tablet 10 mg PO HS albuterol sulfate [ProAir HFA] 8.5 GM HFA aerosol inhaler 2 puffs inhalation Q4HP PRN (Reason: Shortness Of Breath Or Wheezing) estradiol 2 MG tablet 2 mg PO DIRECTED trazodone 150 MG tablet 150 mg PO NEEDED PRN (Reason: Sleep) dextromethorphan-benzocaine 1 EACH lozenge 1 each PO Q2H PRN (Reason: Sore Throat) Qty: 1 0RF ondansetron 4 MG tablet,disintegrating 4 mg PO TIDP PRN (Reason: Nausea And Vomiting) Qty: 10 0RF triamcinolone acetonide 80 GM cream 1 applicatio TP BID Rx Instructions: apply to rash as directed potassium chloride 8 MEQ tablet extended release 8 meq PO DAILY Qty: 7 0RF Referrals Follow up/Referrals: Cnonor Nunez MD [Primary Care Provider] - See instructions Activity Restrictions/Add. Instructions Additional Instructions/Restrictions: You have been evaluated for nausea and vomiting, low potassium level. Please take Zofran as needed for nausea. Continue taking your potassium supplement. Eat foods rich in potassium. Follow-up with your primary care doctor in 1 to 2 days for symptom recheck. Return to the emergency department at once for any new or worsening symptoms. Clinical Impressions Clinical Impression: Hypokalemia due to loss of potassium, Moderate nausea and vomiting, Hypertension Instructions Patient Instructions: DI for Hypokalemia, Nausea and Vomiting-Adult Discharge ED Provider: Leonora Bazzi Adult HPI General Chief complaint: Nausea/Vomiting/Diarrhea Stated complaint: Vomitting Time Seen by Provider: 01/09/22 09:09 Mode of Arrival: Ambulatory Source of Information: Patient Limitations: No Limitations History of Present Illness HPI narrative: 71-year-old female presenting to the emergency department nausea and vomiting. Symptoms started about 2 days ago. She had frequent episodes of nausea. Vomiting. Now unable to eat or drink. She takes potassium pills, but has been unable to keep them down. She has had low potassium before. This feels similar. Does not think it is from medication she takes, diuretics. Feels generally weak and unwell. No fevers, chills. No cough or shortness of breath. No chest pain. No abdominal pain. She does not have nausea medicine at home. Related Data Home Medications Medication Instructions Recorded Confirmed albuterol sulfate 90 mcg/actuation 2 puffs inhalation Q4HP PRN 06/07/17 09/26/21 aerosol inhaler (ProAir HFA) Shortness Of Breath Or Wheezing atorvastatin 20 mg tablet 20 mg PO DAILY Cholesterol 06/07/17 09/26/21 clonidine HCl 0.1 mg tablet 0.1 mg PO BID High blood pressure 06/07/17 09/26/21 estradiol 2 mg tablet 2 mg PO DIRECTED Allergy 06/07/17 09/26/21 symptoms montelukast 10 mg tablet 10 mg PO HS Asthma 06/07/17 09/26/21 oxycodone-acetaminophen 10 mg-325 325 mg PO Q4HP PRN Breakthru Mild 06/07/17 09/26/21 mg tablet Pain proge
--- NOTE | 2022-01-09 09:33 | ECG_ITS ---
APPROVED REPORT Exam: Resting ECG HR:98 bpm ECG Measurements Heart Rate 98 AXES OH 135 P 77 QRSd 84 QRS 42 QT 377 T 42 QTc 432 Conclusion SINUS RHYTHM WITH OCCASIONAL SUPRAVENTRICULAR PREMATURE COMPLEXES MODERATE ST DEPRESSION [0.05+ mV ST DEPRESSION] ABNORMAL ECG UNCONFIRMED REPORT Electronically signed by : Connor López MD 01/09/2022 17:57:11
--- NOTE | 2022-01-09 09:55 | PC.NURSE ---
pt up to the bathroom
[2022-01-09 09:58] LABS: Basophils % 0.3 % (0.1-2.0); Eosinophils % 0.1 % (0.1-12.0); Hematocrit 48.4 % (37.0-47.0); Hemoglobin 15.8 g/dL (12.2-16.2); Lymphocytes % 6.6 % (10-50); Mean Corpuscular HGB Conc 32.7 g/dL (31.8-35.4); Mean Corpuscular Hemoglobin 30.4 pg (27.0-31.2); Mean Corpuscular Volume 93.1 fl (81-99); Mean Platelet Volume 7.8 fl (7.4-10.4); Monocytes # 0.6 K/mm3 (0.1-1.0); Monocytes % 4.1 % (1.7-9.3); Neutrophils % 88.9 % (37.0-80.0); Platelet Count 475 K/mm3 (142-424); Red Blood Count 5.19 M/mm3 (4.20-5.40); Red Cell Distribution Width 15.4 % (11.5-17.5); White Blood Count 14.6 K/mm3 (4.8-10.8)
[2022-01-09 10:01] LABS: MANUAL DIFFERENTIAL MANUAL DIFFERENTIAL (MANUAL DIFF)
[2022-01-09 10:03] LABS: Chloride 97 mmol/L (98-107); Potassium 3.1 mmoL/L (3.5-5.1); Sodium 140 mmol/L (136-145)
[2022-01-09 10:05] LABS: Alanine Aminotransferase 24 U/L (12-78); Alkaline Phosphatase 128 U/L (38-126); Aspartate Amino Transferase 32 U/L (14-36); Blood Urea Nitrogen 12 mg/dl (7-17); Creatinine Clearance Estimated 60 mL/min (50-200); Estimated Glomerular Filt Rate 71 ml/min (>60); GFR (African American) 86 ML/MIN (>60)
[2022-01-09 10:06] LABS: Albumin Level 5.6 g/dl (3.5-5.0); Albumin/Globulin Ratio 1.6 (1.1-1.8); Anion Gap 20.1 mEq/L (5-15); Calcium 10.1 mg/dl (8.4-10.2); Carbon Dioxide 26 mmol/L (22.0-30.0); Globulin 3.4 g/dL (1.3-3.2); Glucose 167 mg/dl (74-100); Magnesium 1.7 mg/dl (1.6-2.3); Phosphorous 3.9 mg/dl (2.5-4.5)
[2022-01-09 10:22] LABS: Lymphocytes % 7 % (10-50); Monocytes % 4 % (2-9); Neutrophils % 89 % (42-76); RBC Morphology Normal; Total Cells Counted 100
[2022-01-09 10:23] LABS: Platelet Estimate Slight Increase
[2022-01-09 11:10] LABS: Microscopic, Urine URINE MICROSCOPIC (MICROSCOPIC)
[2022-01-09 11:11] LABS: Appearance,Urine CLEAR (Clear); Bilirubin,Urine Negative (Negative); Blood, Urine Negative (Negative); Color,Urine DK YELLOW (Yellow); Glucose,Urine (UA) Negative (Negative); Ketones,Urine TRACE (Negative); Leukocyte Esterase,Urine Negative (Negative); Nitrate,Urine Negative (Negative); PH,Urine 6.5 (5.0-8.5); Protein,Urine 2+ (Negative); Specific Gravity, Urine 1.025 (1.005-1.030); Urobilinogen,Urine 0.2 EU/dl (0.2)
--- NOTE | 2022-01-09 11:26 | CT_ITS ---
FINAL REPORT CLINICAL HISTORY: abdominal pain, vomiting COMPARISON: 04/26/2021, 10/24/2019 FINDINGS: CT OF THE ABDOMEN AND PELVIS WITH CONTRAST Axial CT images of the abdomen and pelvis were obtained after the administration of oral and iv contrast. Coronal reformatted images were also obtained and reviewed.This study was performed with techniques to keep radiation doses as low as reasonably achievable (ALARA). Individualized dose reduction techniques using automated exposure control or adjustment of mA and/or kV according to the patient's size were employed. Abdomen: The lung bases are clear. The heart is normal in size. There is a stable, 12 mm cyst in the right liver dome. There is mild, nonspecific gallbladder wall thickening. There are no CT visible stones. No biliary ductal dilatation is seen. The spleen is unremarkable. No adrenal mass is present. The pancreas has an unremarkable appearance. The kidneys are normal, without evidence of mass or hydronephrosis. The aorta is normal in caliber. There is no free fluid or adenopathy. No mass or abnormal fluid collection is seen. Pelvis: The appendix is normal. The urinary bladder is unremarkable. No inflammatory process is seen. There is no evidence of mass or adenopathy. There is no evidence of bowel obstruction. Postoperative changes are seen from left hip arthroplasty. IMPRESSION: Stable hepatic cyst. Mild, nonspecific gallbladder wall thickening with no evidence of gall stones or biliary ductal dilatation. Reviewed, Interpreted and Dictated by Clifford Ellison III, MD Transcribed by Nano Bennett Authenticated and [facility]
--- NOTE | 2022-01-09 11:55 | PC.NURSE ---
rad notified of ct orders
--- NOTE | 2022-01-09 12:02 | PC.NURSE ---
pt return from CT call light hooked to pt bedrail, pt states no needs at this time. Family at BS
--- NOTE | 2022-01-09 12:50 | PC.NURSE ---
RECHECK OF BP 175/91. MD NOTIFIED. MED HELD AT THIS TIME PER VERBAL MD ORDER
--- NOTE | 2022-01-09 14:10 | PC.NURSE ---
B/P 172/94 AT THIS TIME, MD OJEDA
== END 2022-01-09 14:30 | disposition home or self-care (01) ==
PROVIDERS: Emergency Provider Emergency Medicine; PCP Family Medicine
DX: K52.9 Noninfective gastroenteritis and colitis, unspecified (principal); B96.89 Other specified bacterial agents as the cause of diseases classified elsewhere; E87.6 Hypokalemia; E87.8 Other disorders of electrolyte and fluid balance, not elsewhere classified; E86.0 Dehydration; M62.81 Muscle weakness (generalized); Z79.51 Long term (current) use of inhaled steroids; Z79.52 Long term (current) use of systemic steroids; Z79.899 Other long term (current) drug therapy
CPT/HCPCS: 74177; 80053; 81001; 83735; 84100; 85007; 85025; 93005; 96361; 96374; 99285; J2405; Q9967

== ENCOUNTER → 2022-06-21 07:43 | Outpatient (CLI) | payer MEDICARE, OTHER, SELFPAY ==
--- NOTE | 2022-06-21 07:44 | CA_ITS ---
FINAL REPORT TECHNIQUE: Grayscale, color Doppler and duplex Doppler ultrasound of the kidneys, aorta and renal arteries was performed. Multiple velocities were measured. CLINICAL HISTORY: HTN,HLD FINDINGS: Aorta velocity: 140 cm/sec Right kidney: 9.9 cm. No evidence of hydronephrosis. There is a 1.5 cm cyst in the midpole. Right intrarenal RI: 0.67 Right renal artery velocity: 205 cm/sec. Right RAR (Renal artery-Aortic Ratio): 1.47 Left Kidney: 9.9 cm. No evidence of hydronephrosis or mass. Left intrarenal RI: 0.7 Left renal artery velocity: 138 cm/sec. Left RAR (Renal Artery-Aortic Ratio): 0.99 IMPRESSION: No evidence of significant renal artery stenosis. 1.5 cm right renal cyst. CT angiogram or postcontrast MR angiogram would be more sensitive for evaluation of possible renal artery stenosis. Reviewed, Interpreted and Dictated by Celestine Jones MD Transcribed by Ashley Shannon Authenticated and [facility]
== END ==
PROVIDERS: PCP Emergency Medicine; Visit Provider Emergency Medicine
DX: I10 Essential (primary) hypertension (principal); R10.9 Unspecified abdominal pain
CPT/HCPCS: 93976

== ENCOUNTER → 2022-06-22 10:00 | Outpatient (CLI) | payer MEDICARE, OTHER, SELFPAY ==
[2022-06-22 14:48] LABS: Basophils % 0.4 % (0.1-2.0); Eosinophils # 0.2 K/mm3 (0.0-0.4); Eosinophils % 2.8 % (0.1-12.0); Hematocrit 42.6 % (37.0-47.0); Hemoglobin 13.6 g/dL (12.2-16.2); Lymphocytes # 1.6 K/mm3 (0.7-4.5); Lymphocytes % 22.1 % (10-50); Mean Corpuscular HGB Conc 31.8 g/dL (31.8-35.4); Mean Corpuscular Hemoglobin 29.7 pg (27.0-31.2); Mean Corpuscular Volume 93.4 fl (81-99); Mean Platelet Volume 8.8 fl (7.4-10.4); Monocytes # 0.4 K/mm3 (0.1-1.0); Monocytes % 5.4 % (1.7-9.3); Neutrophils % 69.2 % (37.0-80.0); Platelet Count 446 K/mm3 (142-424); Red Blood Count 4.56 M/mm3 (4.20-5.40); Red Cell Distribution Width 14.2 % (11.5-17.5); White Blood Count 7.2 K/mm3 (4.8-10.8)
[2022-06-22 14:56] LABS: Alanine Aminotransferase 25 U/L (12-78); Albumin Level 4.7 g/dl (3.5-5.0); Albumin/Globulin Ratio 1.9 (1.1-1.8); Alkaline Phosphatase 108 U/L (38-126); Aspartate Amino Transferase 26 U/L (14-36); Bilirubin,Total 0.6 mg/dl (0.2-1.3); Blood Urea Nitrogen 15 mg/dl (7-17); Carbon Dioxide 28 mmol/L (22.0-30.0); Chloride 98 mmol/L (98-107); Chol/HDL Ratio 3.3 (1-3.5); Cholesterol 247 mg/dl (140-200); Estimated Glomerular Filt Rate 49 ml/min (>60); GFR (African American) 59 ML/MIN (>60); Globulin 2.5 g/dL (1.3-3.2); Glucose 98 mg/dl (74-100); HDL Cholesterol 75 mg/dl (40-60); Sodium 137 mmol/L (136-145); Total Protein,Serum 7.2 g/dl (6.3-8.2); Triglycerides 173 mg/dl (30-150); VLDL Cholesterol 35 mg/dL (0-40)
[2022-06-22 15:07] LABS: Direct LDL Cholesterol 121.83 mg/dL (100-129)
[2022-06-22 15:13] LABS: Hemoglobin A1C 5.5 % (4.0-6.0)
[2022-06-22 15:30] LABS: Thyroid Stimulating Hormone 9.19 uIU/mL (0.465-4.68)
== END ==
PROVIDERS: PCP Physician Assistant; Visit Provider Physician Assistant
DX: R73.09 Other abnormal glucose (principal); Z01.419 Encounter for gynecological examination (general) (routine) without abnormal findings; I10 Essential (primary) hypertension; Z79.899 Other long term (current) drug therapy
CPT/HCPCS: 80053; 80061; 83036; 84443; 85025

== ENCOUNTER → 2022-06-22 10:57 | Outpatient (CLI) | payer MEDICARE, OTHER, SELFPAY ==
--- NOTE | 2022-06-22 10:57 | US_ITS ---
FINAL REPORT CLINICAL HISTORY: abdominal pain FINDINGS: ULTRASOUND RIGHT UPPER QUADRANT Sonographic imaging of the right upper quadrant was obtained. The pancreas is partially obscured. There is a 7 mm anechoic structure in the right lobe of the liver. There is no evidence of gallstones. There is no gallbladder wall thickening. There is no biliary ductal dilatation. The common duct is normal at 7 mm. Limited images of the right kidney are unremarkable. IMPRESSION: Small cyst in the right liver lobe. Reviewed, Interpreted and Dictated by Celestine Jones MD Transcribed by Ashley Shannon Authenticated and [facility]
== END ==
PROVIDERS: PCP Emergency Medicine; Visit Provider Emergency Medicine
DX: R10.9 Unspecified abdominal pain (principal); Z79.899 Other long term (current) drug therapy
CPT/HCPCS: 76705; 80053; 80061; 83036; 84443; 85025

== ENCOUNTER 2022-07-27 16:30 | Outpatient (RCR) | payer MEDICARE, OTHER, SELFPAY | END 2022-07-27 16:35 | disposition home or self-care (01) | LOC: PT 16:30 | PROVIDERS: PCP Emergency Medicine; Visit Provider Orthopaedic Surgery | DX: M25.551 Pain in right hip (principal); Z96.641 Presence of right artificial hip joint | CPT/HCPCS: 97010; 97014; 97110; 97163; 97530; G0283 ==

== ENCOUNTER 2022-07-30 15:36 | Emergency (ER) | payer MEDICARE, OTHER, SELFPAY ==
[2022-07-30] VITALS (8 sets, daily range): BP systolic 166–202; BP diastolic 78–97; PULSE 105–111; RESP 20; TEMP 36.5; O2SAT 100; BMI 31.1
--- NOTE | 2022-07-30 15:49 | PC.NURSE ---
covid swab sent to lab
[2022-07-30 15:52] LABS: Coronavirus 19, PCR Not Detected (NotDetected); Influenza A, PCR Not Detected (NotDetected); Influenza B, PCR Not Detected (NotDetected)
--- NOTE | 2022-07-30 16:21 | HMH.EDGENADL ---
Discharge Plan Disposition Patient Disposition: Home, Self-Care Condition: Good Prescriptions Prescriptions: New oxycodone-acetaminophen [Endocet] 7.5-325 mg tablet 1 tab PO Q6H PRN (Reason: pain) Qty: 10 0RF prochlorperazine 25 mg suppository 25 mg DC Q12H Qty: 12 0RF No Action potassium chloride 20 mEq tablet,ER particles/crystals 20 meq PO diphenoxylate-atropine [Lomotil] 2.5-0.025 mg tablet 2 tab PO TID PRN (Reason: diarrhea) 30 Days Qty: 90 2RF losartan 50 mg tablet 50 mg PO DAILY Qty: 30 2RF furosemide 40 mg tablet 40 mg PO fluticasone propion-salmeterol 250-50 mcg/dose blister with device 1 inh inhalation duloxetine [Cymbalta] 60 mg capsule,delayed release(DR/EC) 60 mg PO BID oxycodone 10 mg tablet See Rx Instructions .ROUTE .COMPLEX Qty: 50 0RF Rx Instructions: Take one qid and 1 qhs; tramadol 50 mg tablet 50 mg PO BID PRN (Reason: breakthrough pain) 10 Days Qty: 20 0RF levothyroxine 25 mcg capsule 25 mcg PO DAILY Qty: 90 0RF acyclovir 400 MG tablet 400 mg PO DAILY amlodipine 10 MG tablet 10 mg PO DAILY atorvastatin 20 MG tablet 20 mg PO DAILY clonidine HCl 0.1 MG tablet 0.1 mg PO BID triamcinolone acetonide 80 GM cream 1 applicatio TP BID Rx Instructions: apply to rash as directed Referrals Follow up/Referrals: Chandra Leahy MD [Primary Care Provider] - See instructions Activity Restrictions/Add. Instructions Additional Instructions/Restrictions: Drink plenty of fluids. Return for worsening vomiting, abdominal pain or other concerns. Clinical Impressions Clinical Impression: Vomiting Instructions Patient Instructions: Nausea and Vomiting-Adult Discharge ED Provider: Julio Duarte General Adult HPI General Chief complaint: Nausea/Vomiting/Diarrhea Stated complaint: Vomitting Time Seen by Provider: 07/30/22 16:13 Mode of Arrival: Ambulatory Source of Information: Patient Limitations: No Limitations Description of Symptoms (Recalled from ER Triage Doc. by RN): pt to ed c/o n/v/d. pt reports she has had prior galbadder problems. History of Present Illness HPI narrative: Patient presents with vomiting that began yesterday. She denies associated diarrhea she notes only minimal if any abdominal discomfort. There is been no fever. She has been dealing with this episodically for 2 years and has been told reportedly that this may be related to her gallbladder. She describes symptoms as severe and without exacerbating alleviating factors. Related Data Home Medications Medication Instructions Recorded Confirmed atorvastatin 20 mg tablet 20 mg PO DAILY Cholesterol 06/07/17 06/23/22 clonidine HCl 0.1 mg tablet 0.1 mg PO BID High blood pressure 06/07/17 06/23/22 acyclovir 400 mg tablet 400 mg PO DAILY antiviral 10/24/19 06/23/22 amlodipine 10 mg tablet 10 mg PO DAILY High blood pressure 10/24/19 06/23/22 triamcinolone acetonide 0.1 % 1 applicatio topical BID . 09/26/21 06/23/22 topical cream duloxetine 60 mg capsule,delayed 60 mg PO BID 04/10/22 06/23/22 release (Cymbalta) potassium chloride 20 mEq 20 meq PO 06/09/22 06/23/22 tablet,extended release(part/cryst) fluticasone 250 mcg-salmeterol 50 1 inh inhalation 06/22/22 06/23/22 mcg/dose blistr powdr for inhalation furosemide 40 mg tablet 40 mg PO 06/22/22 06/23/22 Previous Rx's Medication Instructions Recorded diphenoxylate-atropine 2.5 2 tab PO TID PRN diarrhea 30 days 06/09/22 mg-0.025 mg tablet (Lomotil) #90 tabs losartan 50 mg tablet 50 mg PO DAILY #30 tabs 06/09/22 levothyroxine 25 mcg capsule 25 mcg PO DAILY hypothyroidism #90 06/23/22 caps oxycodone 10 mg tablet See Rx Instructions .Route 06/23/22 .COMPLEX #50 tabs tramadol 50 mg tablet 50 mg PO BID PRN breakthrough pain 06/23/22 10 days #20 tabs oxycodone-acetaminophen 7.5 mg-325 1 tab PO Q6H PRN pain #10 tabs 07/30/22 mg tablet (Endocet)
[2022-07-30 16:23] LABS: Basophils % 0.1 % (0.1-2.0); Chloride 104 mmol/L (98-107); Eosinophils # 0.1 K/mm3 (0.0-0.4); Eosinophils % 0.6 % (0.1-12.0); Hematocrit 38.5 % (37.0-47.0); Lymphocytes # 0.6 K/mm3 (0.7-4.5); Lymphocytes % 6.6 % (10-50); Mean Corpuscular HGB Conc 31.1 g/dL (31.8-35.4); Mean Corpuscular Hemoglobin 29.1 pg (27.0-31.2); Mean Corpuscular Volume 93.8 fl (81-99); Mean Platelet Volume 7.1 fl (7.4-10.4); Monocytes # 0.2 K/mm3 (0.1-1.0); Monocytes % 1.6 % (1.7-9.3); Neutrophils # 8.7 K/mm3 (1.8-7.8); Neutrophils % 91.1 % (37.0-80.0); Platelet Count 872 K/mm3 (142-424); Red Blood Count 4.11 M/mm3 (4.20-5.40); Red Cell Distribution Width 15.5 % (11.5-17.5); Sodium 137 mmol/L (136-145); White Blood Count 9.6 K/mm3 (4.8-10.8)
[2022-07-30 16:24] LABS: Potassium 3.4 mmoL/L (3.5-5.1)
[2022-07-30 16:26] LABS: Alanine Aminotransferase 20 U/L (12-78); Alkaline Phosphatase 138 U/L (38-126); Amylase 54 U/L (30-110); Anion Gap 14.4 mEq/L (5-15); Aspartate Amino Transferase 28 U/L (14-36); Bilirubin,Total 0.6 mg/dl (0.2-1.3); Blood Urea Nitrogen 12 mg/dl (7-17); Carbon Dioxide 22 mmol/L (22.0-30.0); Creatinine Clearance Estimated 64 mL/min (50-200); Estimated Glomerular Filt Rate 71 ml/min (>60); GFR (African American) 86 ML/MIN (>60)
[2022-07-30 16:27] LABS: Albumin Level 4.4 g/dl (3.5-5.0); Albumin/Globulin Ratio 1.6 (1.1-1.8); Calcium 9.3 mg/dl (8.4-10.2); Globulin 2.8 g/dL (1.3-3.2); Glucose 177 mg/dl (74-100); Lipase 79 U/L (23-300); MANUAL DIFFERENTIAL MANUAL DIFFERENTIAL (MANUAL DIFF); Total Protein,Serum 7.2 g/dl (6.3-8.2)
[2022-07-30 16:45] LABS: Microscopic, Urine URINE MICROSCOPIC (MICROSCOPIC)
[2022-07-30 16:46] LABS: Lymphocytes % 5 % (10-50); Monocytes % 1 % (2-9); Neutrophils % 94 % (42-76); Total Cells Counted 100
[2022-07-30 16:47] LABS: Platelet Estimate Marked Increase; Target Cells 1+
[2022-07-30 16:52] LABS: Appearance,Urine CLEAR (Clear); Bilirubin,Urine Negative (Negative); Blood, Urine Negative (Negative); Color,Urine YELLOW (Yellow); Glucose,Urine (UA) Negative (Negative); Ketones,Urine 1+ (Negative); Leukocyte Esterase,Urine Negative (Negative); Nitrate,Urine Negative (Negative); Protein,Urine Negative (Negative); Specific Gravity, Urine 1.015 (1.005-1.030); Urobilinogen,Urine 0.2 EU/dl (0.2)
[2022-07-30 17:19] LABS: Bacteria,Urine Trace /lpf; WBC,Urine Occasional #/hpf (0-3)
--- NOTE | 2022-07-30 17:44 | PC.NURSE ---
rounded on pt notified nurse and md pt was wanting more pain meds and nausea meds, at bs
== END 2022-07-30 18:42 | disposition home or self-care (01) ==
PROVIDERS: Emergency Provider Emergency Medicine; PCP Emergency Medicine
DX: R11.2 Nausea with vomiting, unspecified (principal); R19.7 Diarrhea, unspecified
CPT/HCPCS: 80053; 81001; 82150; 83690; 85007; 85025; 96360; 96374; 96375; 96376; 99284; 99285; C9803; J2405; U0003; U0005

== ENCOUNTER 2022-08-01 19:02 | Inpatient (IN) | payer MEDICARE, OTHER, SELFPAY ==
[2022-08-01] VITALS (9 sets, daily range): BP systolic 140–165; BP diastolic 74–81; PULSE 106–119; RESP 8–23; TEMP 36.5–36.7; O2SAT 94–100; BMI 28.3
--- NOTE | 2022-08-01 19:08 | ECG_ITS ---
APPROVED REPORT Exam: Resting ECG HR:112 bpm ECG Measurements Heart Rate 112 AXES DE 126 P 66 QRSd 78 QRS 50 QT 365 T 71 QTc 432 Conclusion SINUS TACHYCARDIA WITH FREQUENT SUPRAVENTRICULAR PREMATURE COMPLEXES ST DEPRESSION, CONSIDER SUBENDOCARDIAL INJURY [0.1+ mV ST DEPRESSION] ABNORMAL ECG UNCONFIRMED REPORT Electronically signed by : Connor López MD 08/01/2022 20:16:40
[2022-08-01 19:16] LABS: POC Glucose,Bedside 292 (70-110)
--- NOTE | 2022-08-01 19:20 | HMH.EDGENADL ---
Discharge Plan Disposition Chief Complaint: Weakness Prescriptions Prescriptions: No Action potassium chloride 20 mEq tablet,ER particles/crystals 20 meq PO diphenoxylate-atropine [Lomotil] 2.5-0.025 mg tablet 2 tab PO TID PRN (Reason: diarrhea) 30 Days Qty: 90 2RF losartan 50 mg tablet 50 mg PO DAILY Qty: 30 2RF furosemide 40 mg tablet 40 mg PO fluticasone propion-salmeterol 250-50 mcg/dose blister with device 1 inh inhalation duloxetine [Cymbalta] 60 mg capsule,delayed release(DR/EC) 60 mg PO BID oxycodone 10 mg tablet See Rx Instructions .ROUTE .COMPLEX Qty: 50 0RF Rx Instructions: Take one qid and 1 qhs; tramadol 50 mg tablet 50 mg PO BID PRN (Reason: breakthrough pain) 10 Days Qty: 20 0RF levothyroxine 25 mcg capsule 25 mcg PO DAILY Qty: 90 0RF promethazine 25 mg suppository [address] Q6H PRN (Reason: nausea and vomiting) Qty: 12 1RF acyclovir 400 MG tablet 400 mg PO DAILY amlodipine 10 MG tablet 10 mg PO DAILY atorvastatin 20 MG tablet 20 mg PO DAILY clonidine HCl 0.1 MG tablet 0.1 mg PO BID triamcinolone acetonide 80 GM cream 1 applicatio TP BID Rx Instructions: apply to rash as directed oxycodone-acetaminophen [Endocet] 7.5-325 mg tablet 1 tab PO Q6H PRN (Reason: pain) Qty: 10 0RF prochlorperazine 25 mg suppository [address] Q12H Qty: 12 0RF Referrals Follow up/Referrals: Chandra Leahy MD [Primary Care Provider] - See instructions Clinical Impressions Clinical Impression: Nausea vomiting and diarrhea, Weakness, Abdominal pain, lower Discharge ED Provider: Jessica Gómez General Adult HPI General Chief complaint: Weakness Stated complaint: N/V,weakness,fainting Time Seen by Provider: 08/01/22 19:20 Mode of Arrival: Wheelchair Source of Information: Patient Limitations: No Limitations Description of Symptoms (Recalled from ER Triage Doc. by RN): pt to ED in a wheelchair with nause and vomiting since sunday and diarrhea and weakness that started today. pt denies any weakness or SOB but is pale, diaphoretic and lethargic on assessment. pt also reports she has been unable to take her oxycodone since sunday due to vomiting. History of Present Illness HPI narrative: Patient is a 71-year-old female presenting with nausea vomiting diarrhea and abdominal pain along with profound lethargy and weakness. States this started on Sunday was in the emergency department a few days ago with similar symptoms and states that swelling got worse since that time. She denies any focal pain other than lower abdomen. States that her diarrhea is in the form of foam . She denies any blood in her stool specifically hematochezia or melena. Denies any hematemesis. Denies any dyspnea or chest pain at the moment. No urinary symptoms. This includes dysuria frequency urgency. Of note she states she has a history of C. difficile and that her symptoms feel similar today. Related Data Home Medications Medication Instructions Recorded Confirmed atorvastatin 20 mg tablet 20 mg PO DAILY Cholesterol 06/07/17 06/23/22 clonidine HCl 0.1 mg tablet 0.1 mg PO BID High blood pressure 06/07/17 06/23/22 acyclovir 400 mg tablet 400 mg PO DAILY antiviral 10/24/19 06/23/22 amlodipine 10 mg tablet 10 mg PO DAILY High blood pressure 10/24/19 06/23/22 triamcinolone acetonide 0.1 % 1 applicatio topical BID . 09/26/21 06/23/22 topical cream duloxetine 60 mg capsule,delayed 60 mg PO BID 04/10/22 06/23/22 release (Cymbalta) potassium chloride 20 mEq 20 meq PO 06/09/22 06/23/22 tablet,extended release(part/cryst) fluticasone 250 mcg-salmeterol 50 1 inh inhalation 06/22/22 06/23/22 mcg/dose blistr powdr for inhalation furosemide 40 mg tablet 40 mg PO 06/22/22 06/23/22 Previous Rx's Medication Instructions Recorded diphenoxylate-atropine 2.5 2 tab PO TID PRN diarrhea 30 days 06/09/22 mg-0.025 mg tablet (Lomotil)
--- NOTE | 2022-08-01 19:25 | CT_ITS ---
PROCEDURE INFORMATION: Exam: CT Abdomen And Pelvis With Contrast Exam date and time: 08/01/2022 8:01 PM Age: 71 years old Clinical indication: Abdominal pain; Localized; Lower; Additional info: Lower abd pain TECHNIQUE: Imaging protocol: Computed tomography of the abdomen and pelvis with contrast. Radiation optimization: All CT scans at this facility use at least one of these dose optimization techniques: automated exposure control; mA and/or kV adjustment per patient size (includes targeted exams where dose is matched to clinical indication); or iterative reconstruction. Contrast material: ISOVUE; Contrast volume: 75 ml; Contrast route: IV; REPORTING DATA: Count of CT and Cardiac NM exams in prior 12 months: This patient has received [address] and 0 known cardiac nuclear medicine studies in the 12 months prior to the current study. COMPARISON: CT ABDOMEN PELVIS W CON 01/09/2022 11:41 AM FINDINGS: Lungs: 4 mm pulmonary nodule at the posterolateral left lung base which is stable from prior examination. Liver: Hypoattenuating hepatic lesions which are too small to characterize. Gallbladder and bile ducts: No calcified stones. No ductal dilation. Pancreas: Normal enhancement. No ductal dilation. Spleen: There are multiple splenic calcifications likely on the basis of prior granulomatous exposure. Adrenal glands: No mass. Kidneys and ureters: Striated nephrogram on left. Stomach and bowel: Moderate to large stool burden within the colon. No bowel obstruction. Appendix: No evidence of appendicitis. Intraperitoneal space: No significant fluid collection. No free air. Vasculature: No abdominal aortic aneurysm. Lymph nodes: No enlarged lymph nodes. Urinary bladder: Urinary bladder is not evaluated secondary to adjacent artifact. Reproductive: Not well evaluated secondary to adjacent artifact. Bones/joints: S shaped curvature of the spine. No fracture. Bilateral hip arthroplasties. Soft tissues: No soft tissue swelling. IMPRESSION: 1. Striated nephrogram on left concerning for pyelonephritis. 2. Moderate to large stool burden within the colon. 3. Other chronic and incidental findings described above.
--- NOTE | 2022-08-01 19:25 | XR_ITS ---
PROCEDURE INFORMATION: Exam: XR Chest Exam date and time: 08/01/2022 8:07 PM Age: 71 years old Clinical indication: Dyspnea TECHNIQUE: Imaging protocol: Radiologic exam of the chest. Views: 1 view. COMPARISON: CR XR CHEST 2V 09/17/2019 4:15 PM FINDINGS: Lungs: Mild eventration of the right hemidiaphragm appears stable. No consolidation. Pleural spaces: No pneumothorax. Heart/Mediastinum: No cardiomegaly. Bones/joints: S shaped curvature of the spine. Bilateral shoulder arthroplasties. AC joint arthrosis. No fracture. IMPRESSION: Chronic changes without acute process.
[2022-08-01 19:33] LABS: Basophils # 0.1 K/mm3 (0-0.2); Basophils % 0.4 % (0.1-2.0); Eosinophils # 0.1 K/mm3 (0.0-0.4); Eosinophils % 0.4 % (0.1-12.0); Hematocrit 43.9 % (37.0-47.0); Lymphocytes # 1.9 K/mm3 (0.7-4.5); Lymphocytes % 14.1 % (10-50); Mean Corpuscular HGB Conc 31.8 g/dL (31.8-35.4); Mean Corpuscular Hemoglobin 29.4 pg (27.0-31.2); Mean Corpuscular Volume 92.4 fl (81-99); Mean Platelet Volume 7.6 fl (7.4-10.4); Monocytes # 0.9 K/mm3 (0.1-1.0); Monocytes % 6.4 % (1.7-9.3); Neutrophils # 10.8 K/mm3 (1.8-7.8); Neutrophils % 78.7 % (37.0-80.0); Platelet Count 724 K/mm3 (142-424); Red Blood Count 4.75 M/mm3 (4.20-5.40); Red Cell Distribution Width 15.2 % (11.5-17.5); White Blood Count 13.7 K/mm3 (4.8-10.8)
[2022-08-01 19:36] LABS: Chloride 91 mmol/L (98-107); Sodium 133 mmol/L (136-145)
[2022-08-01 19:38] LABS: Lipase 156 U/L (23-300)
[2022-08-01 19:39] LABS: Alanine Aminotransferase 42 U/L (12-78); Albumin Level 4.5 g/dl (3.5-5.0); Albumin/Globulin Ratio 1.6 (1.1-1.8); Alkaline Phosphatase 132 U/L (38-126); Anion Gap 24.7 mEq/L (5-15); Aspartate Amino Transferase 62 U/L (14-36); Bilirubin,Total 0.7 mg/dl (0.2-1.3); Blood Urea Nitrogen 17 mg/dl (7-17); Calcium 9.7 mg/dl (8.4-10.2); Carbon Dioxide 20 mmol/L (22.0-30.0); Creatinine Clearance Estimated 50 mL/min (50-200); Estimated Glomerular Filt Rate 44 ml/min (>60); GFR (African American) 54 ML/MIN (>60); Globulin 2.8 g/dL (1.3-3.2); Glucose 302 mg/dl (74-100); Magnesium 2.1 mg/dl (1.6-2.3); Total Protein,Serum 7.3 g/dl (6.3-8.2)
[2022-08-01 19:48] LABS: Lactic Acid 5.9 mmol/L (0.7-2.1); Potassium 2.7 mmoL/L (3.5-5.1)
[2022-08-01 19:49] LABS: NT Pro Brain Natriuretic Pep. 21500 pg/mL (0-125)
--- NOTE | 2022-08-01 19:51 | PC.NURSE ---
PT gone to RAD via stretcher
[2022-08-01 19:53] LABS: Microscopic, Urine URINE MICROSCOPIC (MICROSCOPIC)
[2022-08-01 19:56] LABS: Appearance,Urine CLEAR (Clear); Blood, Urine Negative (Negative); Color,Urine YELLOW (Yellow); Glucose,Urine (UA) Negative (Negative); Ketones,Urine TRACE (Negative); Leukocyte Esterase,Urine Negative (Negative); Nitrate,Urine Negative (Negative); Protein,Urine 2+ (Negative); Specific Gravity, Urine 1.025 (1.005-1.030); Urobilinogen,Urine 0.2 EU/dl (0.2)
[2022-08-01 19:57] LABS: Troponin I 0.27 ng/ml (0.00-0.034)
[2022-08-01 19:59] LABS: Bilirubin,Urine 1+ (Negative)
--- NOTE | 2022-08-01 20:03 | PC.NURSE ---
Kwabena WOODARD, STONE GRADER, RN SPOKE TO Kwabena NICHOLS, RN TO NOTIFY DR. LANZA THAT PATIENT NEEDED BLOOD CULTURES ORDERED, SEPSIS BOLUS NEEDS TO BE INITIATED AND TISSUE PERFUSION REASSESSMENT WILL NEED TO BE PERFORMED.
--- NOTE | 2022-08-01 20:07 | PC.NURSE ---
Pt back from RAD
[2022-08-01 20:10] LABS: Thyroid Stimulating Hormone 2.27 uIU/mL (0.465-4.68)
[2022-08-01 20:20] LABS: Squamous Epithelial Cell,Urine Occasional #/hpf (0-5); WBC,Urine Occasional #/hpf (0-3)
--- NOTE | 2022-08-01 21:04 | PC.NURSE ---
Yariel the Hospitalist at bedside talking with patient.
--- NOTE | 2022-08-01 21:10 | PC.NURSE ---
Rounded on pt. Covid swab sent to lab. No needs voiced. Call light within reach.
[2022-08-01 21:13] LABS: Coronavirus 19, PCR Not Detected (NotDetected); Influenza A, PCR Not Detected (NotDetected); Influenza B, PCR Not Detected (NotDetected)
--- NOTE | 2022-08-01 21:16 | PC.NURSE ---
Notified washhouse worker of pt admission
--- NOTE | 2022-08-01 21:21 | PC.NURSE ---
Pt assigned to room 207 and admissions notified at this time.
--- NOTE | 2022-08-01 21:23 | EXP.HP ---
History of Present Illness *Admission Date: 08/01/22 *Reason for visit:: Nausea, Vomiting, Abdominal Pain *History of present illness: Ms. Atkinson is a 71-year-old female with a past medical history of Chronic Pain, History of C. diff, colitis, HTN, Hypothyroidism and Hyperlipidemia. She presents to [facility] due to a 3-day history of worsening abdominal pain associated with nausea, vomiting and constipation. She was seen in the ER on 07/30 with the same symptoms, she was given antiemetics with reported worsening of symptoms, so she came back to the ER for further evaluation. In the ER, the patient underwent a CT of the abdomen and pelvis that showed a striated nephogram on the left concerning for Pyelonephritis and a moderate to a large amount of stool within the colon. Urinalysis was unremarkable. CBC showed an elevated WBC at 13.7, CMP showed a Na of 133, K of 2.7, Creatinine of 1.20. AST of 62. Phosphorus was 2.0. EKG showed sinus tachycardia with rate in the 120's with ST depression in leads V2 and V3. Troponin was elevated at 0.27. BNP was elevated at 21,500. In the ER, the patient was given iv fluids, Flagyl, Rocephin and Analgesics. The patient will be admitted with initial impression: Coliits/Constipation, Dehydration, Hypokalemia, TIP, NSTEMI. [facility] Disclaimer: The information contained in this section may have been updated after the patient was seen, as this information can be updated by other users. Medical History (Updated 08/02/22 @ 11:29 by Silvia Gibbs APRN) Abdominal pain Abnormal electrocardiogram [ECG] [EKG] TIP (acute kidney injury) C. difficile diarrhea HLD (hyperlipidemia) HTN (hypertension), benign Hypokalemia Hypokalemia due to loss of potassium Hypothyroidism Pyelonephritis Surgical History History of arthroscopy of left shoulder History of total right hip replacement Social History (Updated 08/01/22 @ 23:30 by Fab Juares RN) Smoking Status: Never smoker second hand exposure: No alcohol intake: never current occupational status: retired Travel in the last 8 weeks: None household members: spouse housing: house current occupational exposures/hazards: No caffeine: No Review of Systems Review of Systems Review of systems:: pertinent systems reviewed and negative unless documented below Constitutional Constitutional: Reports fatigue Eyes Eyes: Reports system reviewed and no additional complaints, except as documented ENT Ears, Nose, Mouth, and Throat: Reports system reviewed and no additional complaints, except as documented *Cardiovascular Cardiovascular: Reports system reviewed and no additional complaints, except as documented *Respiratory Respiratory: Reports system reviewed and no additional complaints, except as documented *Gastrointestinal Gastrointestinal: Reports abdominal pain, Reports bloating, Reports constipation, Reports nausea and Reports vomiting *Genitourinary Genitourinary: Reports system reviewed and no additional complaints, except as documented *Musculoskeletal Musculoskeletal: Reports arthralgias Integumentary/Breasts Skin/Breast: Reports system reviewed and no additional complaints, except as documented *Neurologic Neurologic: Reports system reviewed and no additional complaints, except as documented Psychiatric Psychiatric: Reports system reviewed and no additional complaints, except as documented Endocrine Endocrine: Reports fatigue Hematologic/Lymphatic Hematologic/Lymphatic: Reports system reviewed and no additional complaints, except as documented Allergic/Immunologic Allergic/Immunologic: Reports system reviewed and no additional complaints, except as documented Meds Home Medications and Allergies Home Medications Medication Instructions Recorded Confirmed Type atorvastatin 20 mg tablet 20 mg PO DAILY Cholesterol 06/07/17 08/01/22 History clonidin
--- NOTE | 2022-08-01 21:42 | PC.NURSE ---
Pt on bedpan. Went to BS to take pt off. She advised she really had to go and did not want to be taken off the bedpan.
--- NOTE | 2022-08-01 22:06 | PC.NURSE ---
PT ARRIVED TO FLOOR AT THIS TIME
[2022-08-01 23:03] LABS: Troponin I 0.19 ng/ml (0.00-0.034)
[2022-08-01 23:30] LABS: Reflex Lactic Add Lactic Reflex
[2022-08-01 23:56] LABS: Lactic Acid Follow Up (RFLX 1) 4.8 mmol/L (0.7-2.1)
[2022-08-02] VITALS (9 sets, daily range): BP systolic 137–190; BP diastolic 71–92; PULSE 85–123; RESP 17–18; TEMP 36.2–37; O2SAT 97–100
--- NOTE | 2022-08-02 01:28 | PC.NURSE ---
Pt c/o pain unrelieved by previously administered dose of morphine. call center nurse DNP called to notify of pt's complaint, new order received for one time dose morphine 2mg IV push. Administered per MAY.
[2022-08-02 01:36] LABS: Reflex Lactic (2 hrs) Add Lactic Reflex
[2022-08-02 02:02] LABS: Lactic Acid Follow up (RFLX 2) 5.1 mmol/L (0.7-2.1)
[2022-08-02 02:26] LABS: Troponin I 0.18 ng/ml (0.00-0.034)
--- NOTE | 2022-08-02 03:30 | PC.NURSE ---
Addendum entered by Benjamin Farley RN 08/02/22 04:00: Original order for compezine obtained because pt complained of continued nausea due to pain and prn zofran not being available to administer due to order time frame. Pt had no previous noted allergies to medication and was agreeable to try medication. Less than 100mL dark liquid observed in emesis bag. Addendum entered by Benjamin Farley RN 08/02/22 03:54: Benadryl administered per order. Original Note: Compezine administered, called to pt room, pt states she feels like she's having a reaction to the medication, that her tongue is swollen and she can't swallow. HR did increase slightly on ekg monitor tech. Yariel Rodriguez called to come assess pt.
--- NOTE | 2022-08-02 05:52 | PC.NURSE ---
Addendum entered by Benjamin Farley RN 08/02/22 06:44: BP down to 158/72 from 190/92 following administration of hydralazine. Original Note: BP elevated, per pt has not taken any of her BP medications for several days due to nausea and vomiting. Hospitalist called with new order to give 5mg IV hydralazine; administered per MAY.
[2022-08-02 07:01] LABS: Basophils % 0.1 % (0.1-2.0); Eosinophils # 0.6 K/mm3 (0.0-0.4); Eosinophils % 2.1 % (0.1-12.0); Hematocrit 39.4 % (37.0-47.0); Lymphocytes # 0.8 K/mm3 (0.7-4.5); Lymphocytes % 2.6 % (10-50); Mean Corpuscular HGB Conc 31.6 g/dL (31.8-35.4); Mean Corpuscular Hemoglobin 29.4 pg (27.0-31.2); Mean Corpuscular Volume 93.2 fl (81-99); Mean Platelet Volume 7.9 fl (7.4-10.4); Monocytes # 0.9 K/mm3 (0.1-1.0); Monocytes % 3.1 % (1.7-9.3); Neutrophils # 26.4 K/mm3 (1.8-7.8); Neutrophils % 92.2 % (37.0-80.0); Platelet Count 588 K/mm3 (142-424); Red Blood Count 4.23 M/mm3 (4.20-5.40); Red Cell Distribution Width 15.3 % (11.5-17.5); White Blood Count 28.7 K/mm3 (4.8-10.8)
[2022-08-02 07:06] LABS: MANUAL DIFFERENTIAL MANUAL DIFFERENTIAL (MANUAL DIFF)
[2022-08-02 07:07] LABS: Hemoglobin 12.5 g/dL (12.2-16.2)
[2022-08-02 07:17] LABS: Chloride 96 mmol/L (98-107); Potassium 3.2 mmoL/L (3.5-5.1); Sodium 132 mmol/L (136-145)
[2022-08-02 07:20] LABS: Alanine Aminotransferase 53 U/L (12-78); Albumin Level 3.6 g/dl (3.5-5.0); Albumin/Globulin Ratio 1.4 (1.1-1.8); Alkaline Phosphatase 138 U/L (38-126); Anion Gap 21.2 mEq/L (5-15); Anisocytosis 1+; Aspartate Amino Transferase 71 U/L (14-36); Bilirubin,Total 0.7 mg/dl (0.2-1.3); Blood Urea Nitrogen 17 mg/dl (7-17); Calcium 8.9 mg/dl (8.4-10.2); Carbon Dioxide 18 mmol/L (22.0-30.0); Creatinine Clearance Estimated 64 mL/min (50-200); Estimated Glomerular Filt Rate 71 ml/min (>60); GFR (African American) 86 ML/MIN (>60); Globulin 2.5 g/dL (1.3-3.2); Glucose 151 mg/dl (74-100); Hypochromasia 1+; Macrocytosis 1+; Monocytes % 4 % (2-9); Neutrophils % 96 % (42-76); Ovalocytes 1+; Platelet Estimate Slight Increase; Total Cells Counted 100; Total Protein,Serum 6.1 g/dl (6.3-8.2)
--- NOTE | 2022-08-02 08:17 | HMH.PHAINT1 ---
Pharmacy Intervention Comments: MEDICATION RECONCILIATION COMPLETED ON PATIENT USING EXTERNAL FILL HISTORY FROM PHARMACY, BHARGAV REPORT, AND LIST FROM PCP OFFICE. -CELESTINE VILLEGASD
--- NOTE | 2022-08-02 08:24 | EXP.SURG.CON ---
History of Present Illness *Admission Date: 08/01/22 *Reason for visit:: Abdominal pain; leukocytosis; constipation *History of present illness: This is a 71-year-old female seen in consultation from the Hospitalist Service for evaluation regarding abdominal pain, constipation, and leukocytosis. Please see HPI forwarded from admission H&P below. She states that she currently has fairly severe abdominal pain that is mostly in the mid and lower abdomen. Some progression globally. Forwarded from admission H&P: Ms. Atkinson is a 71-year-old female with a past medical history of Chronic Pain, History of C. diff, colitis, HTN, Hypothyroidism and Hyperlipidemia. She presents to [facility] due to a 3-day history of worsening abdominal pain associated with nausea, vomiting and constipation. She was seen in the ER on 07/30 with the same symptoms, she was given antiemetics with reported worsening of symptoms, so she came back to the ER for further evaluation. In the ER, the patient underwent a CT of the abdomen and pelvis that showed a striated nephogram on the left concerning for Pyelonephritis and a moderate to a large amount of stool within the colon. Urinalysis was unremarkable. CBC showed an elevated WBC at 13.7, CMP showed a Na of 133, K of 2.7, Creatinine of 1.20. AST of 62. Phosphorus was 2.0. EKG showed sinus tachycardia with rate in the 120's with ST depression in leads V2 and V3. Troponin was elevated at 0.27. BNP was elevated at 21,500. In the ER, the patient was given iv fluids, Flagyl, Rocephin and Analgesics. The patient will be admitted with initial impression: Coliits/Constipation, Dehydration, Hypokalemia, TIP, NSTEMI. PFSH PFSH Disclaimer: The information contained in this section may have been updated after the patient was seen, as this information can be updated by other users. Medical History C. difficile diarrhea HLD (hyperlipidemia) HTN (hypertension), benign Hypokalemia Hypokalemia due to loss of potassium Hypothyroidism Surgical History History of arthroscopy of left shoulder History of total right hip replacement Social History (Updated 08/01/22 @ 23:30 by Fab Juares RN) Smoking Status: Never smoker second hand exposure: No alcohol intake: never current occupational status: retired Travel in the last 8 weeks: None household members: spouse housing: house current occupational exposures/hazards: No caffeine: No Review of Systems *Neurologic Neurologic: Reports system reviewed and no additional complaints, except as documented Meds Home Medications and Allergies Home Medications Medication Instructions Recorded Confirmed Type atorvastatin 20 mg tablet 20 mg PO DAILY Cholesterol 06/07/17 08/01/22 History clonidine HCl 0.1 mg tablet 0.2 mg PO BID High blood pressure 06/07/17 08/02/22 History acyclovir 400 mg tablet 400 mg PO BID Infection 10/24/19 08/02/22 History amlodipine 10 mg tablet 10 mg PO DAILY High blood pressure 10/24/19 08/01/22 History duloxetine 60 mg capsule,delayed 60 mg PO BID Depression 04/10/22 08/01/22 History release (Cymbalta) diphenoxylate-atropine 2.5 2 tab PO TID PRN diarrhea 30 days 06/09/22 08/01/22 Rx mg-0.025 mg tablet (Lomotil) #90 tabs potassium chloride 20 mEq 20 meq PO BID Supplement 06/09/22 08/02/22 History tablet,extended release(part/cryst) fluticasone 250 mcg-salmeterol 50 1 inh inhalation BID Breathing 06/22/22 08/02/22 History mcg/dose blistr powdr for problems inhalation tramadol 50 mg tablet 50 mg PO BID PRN breakthrough pain 06/23/22 08/01/22 Rx 10 days #20 tabs losartan 50 mg tablet 50 mg PO SEAN
--- NOTE | 2022-08-02 11:22 | EXP.CARD.CON ---
History of Present Illness History of Present Illness Consult date: 08/02/22 Requesting physician: Zoran Francis Chief complaint: nausea, vomiting, abdominal pain History of present illness: This is a 71-year-old white female who presented to the emergency department with a 3-day history of nausea, vomiting and abdominal pain. The patient has a history of chronic pain, history of C. difficile, colitis, hypertension, hyperlipidemia, hypothyroidism and recent right hip replacement. The patient was in the emergency department here at [facility] on 07/30/2022 with nausea and vomiting. The patient was treated in the emergency department and discharged. She was given antiemetics at that time. Her nausea and vomiting worsened and then she started to have constipation as well so she represented to the emergency department yesterday. She states that following her hip surgery she noticed a decline in her bowel movements and she has not had a bowel movement since Sunday. She states that she has been very constipated. She has had diffuse abdominal pain. She states it started in the lower abdomen and then went up to her upper abdominal region as well. She states that this can be severe at times. CT of the abdomen shows that the patient has a striated nephrogram on the left concerning for pyelonephritis. There is also moderate to large amount of stool within the colon. The patient did have an elevated troponin on admission at 0.27 which trended down to 0.18. She had an elevated BNP at 21,500. And she does have an abnormal EKG. The patient denies any chest pain or pressure. She denies any shortness of breath or edema. She denies any fever, chills, PND or orthopnea. Of note the patient does report that she takes Imodium and Lomotil by the handfuls and she has done this for quite some time. When asked why she takes this daily she really has no answer especially since she has been constipated here recently but she has still been taking the Imodium/Lomotil every day. She was also taking opiate pain medication status post hip replacement for pain control. [facility] Disclaimer: The information contained in this section may have been updated after the patient was seen, as this information can be updated by other users. Medical History (Updated 08/02/22 @ 11:29 by Silvia Gibbs APRN) Abdominal pain Abnormal electrocardiogram [ECG] [EKG] TIP (acute kidney injury) C. difficile diarrhea HLD (hyperlipidemia) HTN (hypertension), benign Hypokalemia Hypokalemia due to loss of potassium Hypothyroidism Pyelonephritis Surgical History History of arthroscopy of left shoulder History of total right hip replacement Social History (Updated 08/01/22 @ 23:30 by Fab Juares RN) Smoking Status: Never smoker second hand exposure: No alcohol intake: never current occupational status: retired Travel in the last 8 weeks: None household members: spouse housing: house current occupational exposures/hazards: No caffeine: No Review of Systems Review of Systems Review of systems:: pertinent systems reviewed and negative unless documented below Constitutional Constitutional: Reports system reviewed and no additional complaints, except as documented Eyes Eyes: Reports system reviewed and no additional complaints, except as documented ENT Ears, Nose, Mouth, and Throat: Reports system reviewed and no additional complaints, except as documented *Cardiovascular Cardiovascular: Reports system reviewed and no additional complaints, except as documented, Denies chest pain, Denies dyspnea, Denies dyspnea on exertion, Denies edema and Denies leg edema *Respiratory Respiratory: Reports system reviewed and no additional complaints, except as documented, Denies dyspnea and Denies dyspnea on exertion *Gastrointestinal Gastrointestinal: Reports system reviewed and no additional complaints, exc
--- NOTE | 2022-08-02 14:28 | EXP.ACUTE.PN ---
Subjective *Date: 08/02/22 *Time: 14:28 Interval history: On exam this morning, patient is complaining of pain however she is moving comfortably in bed. Will reposition occasionally. Does not appear to have peritoneal signs, wanting to be immobile and not touched. Able to give history supplemented by her . Further review, she had a hip replacement July 03. Has not had normal bowel function since. States that she has been taking Imodium along with her pain meds. No bowel movement since Sunday. Denies any nausea or vomiting. On review of chart, her history of C. difficile was 5 years ago, nothing documented since. Wanting something to drink. Medical Exam Vital signs and Labs for Last 24 Hours: Vital Signs Temp Pulse Pulse Resp BP BP Pulse Ox 08/02/22 08:00 118 H 08/02/22 12:00 110 H 08/02/22 08:00 98.1 F 123 H 18 155/84 H 98 08/02/22 06:28 158/72 H 08/02/22 06:00 112 H 08/02/22 04:00 98.2 F 120 H 17 190/92 H 100 08/02/22 00:00 111 H 08/02/22 00:00 98.6 F 114 H 18 156/71 H 97 08/01/22 21:24 97.7 F 119 H 17 163/77 H 94 L 08/01/22 22:26 98.0 F 119 H 15 163/77 H 08/01/22 21:30 115 H 10 L 155/80 H 97 08/01/22 21:00 112 H 8 L 154/79 H 98 08/01/22 20:45 114 H 11 L 154/77 H 100 08/01/22 20:30 119 H 12 154/77 H 100 08/01/22 20:08 23 159/74 H 08/01/22 19:31 106 H 11 L 165/76 H 99 08/01/22 19:04 98.1 F 110 H 17 140/81 99 Intake and Output 08/01/22 08/02/22 08/02/22 23:59 07:59 15:59 Intake Total 2600 / 2700 485 / 485 Output Total 200 / 200 0 / 0 Balance 2400 / 2500 485 / 485 0 / 485 Intake: Intake, Total IV Amount 2600 / 2700 485 / 485 KCl 20mEq/100ml 100 ml @ 50 mls 100 / 100 /hr IV Q2H [facility] Rx#:[id number] Lactated Ringers 1000ML 1,000 385 / 385 ml @ 75 mls/hr IV .[id number] [facility] Rx#:[id number] Output: Output, Urine Amount 200 / 200 0 / 0 Other: Number of Unmeasured Voids 1 Weight 72.575 kg 76.884 kg Patient Weight 08/02/22 23:59 Weight 76.884 kg Laboratory Results - last 24 hr 08/01/22 19:07: POC Glucose 292 H 08/01/22 19:20: WBC 13.7 H D, RBC 4.75, Hgb 14.0, Hct 43.9, MCV 92.4, MCH 29.4, MCHC 31.8, RDW 15.2, Plt Count 724 H, MPV 7.6, Neut % (Auto) 78.7, Lymph % (Auto) 14.1, [place] % (Auto) 6.4, Eos % (Auto) 0.4, Baso % (Auto) 0.4, Neut # (Auto) 10.8 H, Lymph # (Auto) 1.9, [place] # (Auto) 0.9, Eos # (Auto) 0.1, Baso # (Auto) 0.1 08/01/22 19:20: Sodium 133 L, Potassium 2.7 L* D, Chloride 91 L, Carbon Dioxide 20 L, Anion Gap 24.7 H, BUN 17 D, Creatinine 1.20 H D, Estimated Creat Clear 50, Estimated GFR 44 L, Est GFR ( Amer) 54 L D, Glucose 302 H, Calcium 9.7, Total Bilirubin 0.7, AST 62 H D, ALT 42 D, Alkaline Phosphatase 132 H, Troponin I 0.27 H, NT-Pro-B Natriuret Pep 11183 H, Total Protein 7.3, Albumin 4.5, Globulin 2.8, Albumin/Globulin Ratio 1.6, TSH 2.27 08/01/22 19:20: Lactate 5.9 H 08/01/22 19:20: Phosphorus 2.0 L, Magnesium 2.1, Lipase 156 08/01/22 19:40: Urine Color Yellow, Urine Appearance Clear, Urine pH 6.0, Ur Specific [place] 1.025, Urine Protein 2+, Urine Glucose (UA) Negative, Urine Ketones Trace, Urine Blood Negative, Urine Nitrate Negative, Urine Bilirubin 1+ A, Urine Urobilinogen 0.2, Ur Leukocyte Esterase Negative, Urine RBC None, Urine WBC Occasional, Ur Squamous Epith Cells Occasional, Urine Bacteria None 08/01/22 21:07: SARS-CoV-2 (PCR) Not detected, Influenza A Untype (PCR) Not detected, Influenza Type B (PCR) Not detected 08/01/22 22:30: Troponin I 0.19 H 08/01/22 23:30: Lactate 4.8 H 08/02/22 01:25: Troponin I 0.18 H 08/02/22 01:25: Lactate 5.1 H 08/02/22 06:48: WBC 28.7 H* D, RBC 4.23, Hgb 12.5 D, Hct 39.4, MCV 93.2, MCH 29.4, MCHC 31.6 L, RDW 15.3, Plt Count 588 H, MPV 7.9, Neut % (Auto) 92.2 H, Lymph % (Auto) 2.6 L, [place] % (Auto) 3.1, Eos % (Auto) 2.1, Baso % (Auto) 0.1, Neut # (Auto) 26.4 H, Lymph # (Auto) 0.
[2022-08-02 15:10] LABS: Basophils # 0.1 K/mm3 (0-0.2); Basophils % 0.3 % (0.1-2.0); Eosinophils # 0.4 K/mm3 (0.0-0.4); Eosinophils % 1.7 % (0.1-12.0); Hematocrit 40.8 % (37.0-47.0); Hemoglobin 12.5 g/dL (12.2-16.2); Lymphocytes # 0.9 K/mm3 (0.7-4.5); Lymphocytes % 3.6 % (10-50); Mean Corpuscular HGB Conc 30.7 g/dL (31.8-35.4); Mean Corpuscular Hemoglobin 29.4 pg (27.0-31.2); Mean Corpuscular Volume 95.9 fl (81-99); Mean Platelet Volume 7.2 fl (7.4-10.4); Monocytes # 0.6 K/mm3 (0.1-1.0); Monocytes % 2.5 % (1.7-9.3); Neutrophils # 22.7 K/mm3 (1.8-7.8); Neutrophils % 91.8 % (37.0-80.0); Platelet Count 417 K/mm3 (142-424); Red Blood Count 4.25 M/mm3 (4.20-5.40); White Blood Count 24.8 K/mm3 (4.8-10.8)
[2022-08-02 15:19] LABS: Chloride 92 mmol/L (98-107); MANUAL DIFFERENTIAL MANUAL DIFFERENTIAL (MANUAL DIFF); Potassium 3.3 mmoL/L (3.5-5.1); Sodium 132 mmol/L (136-145)
[2022-08-02 15:22] LABS: Alanine Aminotransferase 47 U/L (12-78); Albumin Level 3.6 g/dl (3.5-5.0); Albumin/Globulin Ratio 1.4 (1.1-1.8); Alkaline Phosphatase 171 U/L (38-126); Anion Gap 20.3 mEq/L (5-15); Aspartate Amino Transferase 61 U/L (14-36); Bilirubin,Total 0.8 mg/dl (0.2-1.3); Blood Urea Nitrogen 16 mg/dl (7-17); Carbon Dioxide 23 mmol/L (22.0-30.0); Creatinine Clearance Estimated 64 mL/min (50-200); Estimated Glomerular Filt Rate 83 ml/min (>60); GFR (African American) 100 ML/MIN (>60); Globulin 2.5 g/dL (1.3-3.2); Glucose 161 mg/dl (74-100); Total Protein,Serum 6.1 g/dl (6.3-8.2)
[2022-08-02 15:30] LABS: Lymphocytes % 4 % (10-50); Monocytes % 4 % (2-9); Neutrophils % 92 % (42-76); Platelet Estimate Slight Increase; RBC Morphology Normal; Total Cells Counted 100
--- NOTE | 2022-08-02 17:52 | PC.NURSE ---
PT IS RESTING IN BED WITH FAMILY IN THE ROOM. ALERT AND ORIENTED X4. PT WILL ANSWER QUESTIONS HOWEVER HAS BEEN FORGETFUL OFF AND ON T/O THE SHIFT. PT WAS ABLE TO TOLERATE LIQUID DIET. TOLERATED BOWEL REGIMEN (ENEMAS AND MIRALAX) WITH VERY LITTLE RESULTS. PT HAS HAD SMALL AMOUNTS OF LIQUID STOOL. PT HAS BEEN ENCOURAGED TO GET UP TO THE BSC WITH ASSISTANCE. VOIDING WELL. LUNG SOUNDS CLEAR. ABDOMEN SOFT/TENDER WITH HYPOACTIVE BOWEL SOUNDS. WILL CONTINUE TO MONITOR.
[2022-08-03] VITALS (21 sets, daily range): BP systolic 104–175; BP diastolic 53–96; PULSE 85–100; RESP 20–22; TEMP 36.6–36.8; O2SAT 91–99; BMI 30.7
--- NOTE | 2022-08-03 03:53 | PC.NURSE ---
A&OX4. TOLERATING RA WELL. PT HAS C/O ABD PAIN OF 8-10 SCALE. HAS REQUESTED PAIN MEDICATION ATC. PT HAS REMAINED IN BED THIS SHIFT. HAS NOT SLEPT ANY THUS FAR. PT PULLED OUT IV TO R HAND. ISN'T HAPPY WITH FLUIDS RUNNING THROUGH IV IN LAC. REFUSES FLUIDS AT THIS TIME BUT LET ABX RUN. REQUESTING NEW IV IN THE MORNING. NO OTHER NEEDS OR C/O THUS FAR. NO BM NOTED. VSS.
--- NOTE | 2022-08-03 06:07 | XR_ITS ---
PROCEDURE INFORMATION: Exam: XR Abdomen Exam date and time: 08/03/2022 6:35 AM Age: 71 years old Clinical indication: Constipation TECHNIQUE: Imaging protocol: Radiologic exam of the abdomen. Views: Frontal supine view of the abdomen. 1 View. COMPARISON: CT ABDOMEN PELVIS W CON 08/01/2022 8:01 PM FINDINGS: Gastrointestinal tract: Increasing air-filled loops of bowel are seen throughout the abdomen and pelvis. This include both large and small bowel. The colon appears partially featureless. Bones/joints: Unremarkable. IMPRESSION: Increasing air-filled loops of distended large and small bowel. Ileus versus small-bowel obstruction. Consider CT for further evaluation as clinically indicated.
--- NOTE | 2022-08-03 06:44 | P.PN_ITS ---
Subjective Patient reports: no new complaints and still having pain Exam Data for Last 24 hours Vital signs and Labs for Last 24 Hours: Temp Pulse Resp BP Pulse Ox 98.2 F 95 H 20 150/96 H 98 08/03/22 04:00 08/03/22 04:00 08/03/22 04:00 08/03/22 04:00 08/03/22 04:00 Laboratory Results - last 24 hr 08/02/22 06:48: WBC 28.7 H* D, RBC 4.23, Hgb 12.5 D, Hct 39.4, MCV 93.2, MCH 29.4, MCHC 31.6 L, RDW 15.3, Plt Count 588 H, MPV 7.9, Neut % (Auto) 92.2 H, Lymph % (Auto) 2.6 L, [place] % (Auto) 3.1, Eos % (Auto) 2.1, Baso % (Auto) 0.1, Neut # (Auto) 26.4 H, Lymph # (Auto) 0.8, [place] # (Auto) 0.9, Eos # (Auto) 0.6 H, Baso # (Auto) 0.0, Total Counted 100, Neutrophils % (Manual) 96 H, Monocytes % (Manual) 4, Platelet Estimate Slight increase, RBC Morphology Not Reportable, Hypochromasia 1+, Anisocytosis 1+, Macrocytosis 1+, Ovalocytes 1+ 08/02/22 06:48: Sodium 132 L, Potassium 3.2 L, Chloride 96 L, Carbon Dioxide 18 L, Anion Gap 21.2 H, BUN 17, Creatinine 0.80 D, Estimated Creat Clear 64, Estimated GFR 71, Est GFR ( Amer) 86 D, Glucose 151 H D, Calcium 8.9, Total Bilirubin 0.7, AST 71 H, ALT 53 D, Alkaline Phosphatase 138 H, Total Protein 6.1 L, Albumin 3.6 D, Globulin 2.5, Albumin/Globulin Ratio 1.4 08/02/22 14:59: WBC 24.8 H*, RBC 4.25, Hgb 12.5, Hct 40.8, MCV 95.9, MCH 29.4, MCHC 30.7 L, RDW 15.0, Plt Count 417 D, MPV 7.2 L, Neut % (Auto) 91.8 H, Lymph % (Auto) 3.6 L, [place] % (Auto) 2.5, Eos % (Auto) 1.7, Baso % (Auto) 0.3, Neut # (Auto) 22.7 H, Lymph # (Auto) 0.9, [place] # (Auto) 0.6, Eos # (Auto) 0.4, Baso # (Auto) 0.1, Total Counted 100, Neutrophils % (Manual) 92 H, Lymphocytes % (Manual) 4 L, Monocytes % (Manual) 4, Platelet Estimate Slight increase, RBC Morphology Normal 08/02/22 14:59: Sodium 132 L, Potassium 3.3 L, Chloride 92 L, Carbon Dioxide 23, Anion Gap 20.3 H, BUN 16, Creatinine 0.70, Estimated Creat Clear 64, Estimated GFR 83, Est GFR ( Amer) 100, Glucose 161 H, Calcium 9.0, Total Bilirubin 0.8, AST 61 H, ALT 47, Alkaline Phosphatase 171 H, Total Protein 6.1 L, Albumin 3.6, Globulin 2.5, Albumin/Globulin Ratio 1.4 I & O for Last 24 hours: Intake & Output 07/31/22 08/01/22 08/02/22 08/03/22 11:59 11:59 11:59 11:59 Intake Total 3085 / 3085 893 / 893 Output Total 200 / 200 0 / 0 Balance 2885 / 2885 893 / 893 Weight 169 lb 8 oz 173 lb Constitutional Constitutional: no acute distress *Routine Respiratory Exam Respiratory: Absent respiratory distress *Routine Cardiovascular Exam Cardiovascular: Present tachycardia (Minimally tachycardic) *Routine Abdominal Exam Abdominal: Present soft and tenderness (Essentially unchanged) Progress Note: A&P Assessment and plan (1) Constipation: Status: Acute Assessment and plan: Continue aggressive bowel regimen. PO mineral oil added. (2) Pyelonephritis: Status: Suspected (3) Septic shock: Status: Acute (4) Colitis: Status: Acute
[2022-08-03 07:54] LABS: POC Glucose,Bedside 94 (70-110)
--- NOTE | 2022-08-03 08:03 | ECG_ITS ---
APPROVED REPORT Exam: Resting ECG HR:86 bpm ECG Measurements Heart Rate 86 AXES WV 127 P 69 QRSd 88 QRS 43 QT 399 T 71 QTc 443 Conclusion SINUS RHYTHM MODERATE ST DEPRESSION [0.05+ mV ST DEPRESSION] ABNORMAL ECG UNCONFIRMED REPORT Electronically signed by : Connor López MD 08/03/2022 21:23:39
[2022-08-03 08:11] LABS: Chloride 91 mmol/L (98-107); Potassium 3.6 mmoL/L (3.5-5.1); Sodium 130 mmol/L (136-145)
[2022-08-03 08:12] LABS: Basophils % 0.3 % (0.1-2.0); Eosinophils # 0.1 K/mm3 (0.0-0.4); Eosinophils % 1.5 % (0.1-12.0); Hematocrit 46.8 % (37.0-47.0); Lymphocytes # 1.1 K/mm3 (0.7-4.5); Lymphocytes % 10.9 % (10-50); Mean Corpuscular HGB Conc 30.1 g/dL (31.8-35.4); Mean Corpuscular Hemoglobin 29.7 pg (27.0-31.2); Mean Corpuscular Volume 98.7 fl (81-99); Mean Platelet Volume 7.9 fl (7.4-10.4); Monocytes # 0.1 K/mm3 (0.1-1.0); Monocytes % 0.9 % (1.7-9.3); Neutrophils # 8.3 K/mm3 (1.8-7.8); Neutrophils % 86.4 % (37.0-80.0); Platelet Count 481 K/mm3 (142-424); Red Blood Count 4.74 M/mm3 (4.20-5.40); White Blood Count 9.7 K/mm3 (4.8-10.8)
[2022-08-03 08:13] LABS: Blood Urea Nitrogen 24 mg/dl (7-17); Cholesterol 142 mg/dl (140-200); Creatinine Clearance Estimated 59 mL/min (50-200); Estimated Glomerular Filt Rate 49 ml/min (>60); GFR (African American) 59 ML/MIN (>60); Hemoglobin 14.1 g/dL (12.2-16.2); MANUAL DIFFERENTIAL MANUAL DIFFERENTIAL (MANUAL DIFF); Triglycerides 102 mg/dl (30-150); VLDL Cholesterol 20 mg/dL (0-40)
[2022-08-03 08:14] LABS: Albumin Level 3.8 g/dl (3.5-5.0); Albumin/Globulin Ratio 1.3 (1.1-1.8); Alkaline Phosphatase 362 U/L (38-126); Anion Gap 28.6 mEq/L (5-15); Bilirubin,Total 1.1 mg/dl (0.2-1.3); Calcium 9.6 mg/dl (8.4-10.2); Carbon Dioxide 14 mmol/L (22.0-30.0); Chol/HDL Ratio 1.8 (1-3.5); Globulin 2.9 g/dL (1.3-3.2); Glucose 143 mg/dl (74-100); HDL Cholesterol 79 mg/dl (40-60); Magnesium 3.2 mg/dl (1.6-2.3); Total Protein,Serum 6.7 g/dl (6.3-8.2)
[2022-08-03 08:16] LABS: Lactic Acid 9.3 mmol/L (0.7-2.1)
[2022-08-03 08:27] LABS: Troponin I 0.08 ng/ml (0.00-0.034)
[2022-08-03 08:29] LABS: Direct LDL Cholesterol < 30.00 mg/dL (100-129)
[2022-08-03 08:38] LABS: Alanine Aminotransferase 1594 U/L (12-78); Aspartate Amino Transferase 2853 U/L (14-36)
[2022-08-03 09:05] LABS: Lymphocytes % 20 % (10-50); Monocytes % 7 % (2-9); Myelocytes % 1 (0-1); Neutrophils % 55 % (42-76); Platelet Estimate Normal; RBC Morphology Normal; Total Cells Counted 100
--- NOTE | 2022-08-03 09:53 | EXP.EVENT.NO ---
Rapid read called at approximately 7:40. Patient was going to the bathroom and became unresponsive. Was in the bed on arrival. Had some mottling of her extremities and seemed confused but pulse was present and clear breath sounds bilaterally. Placed on oxygen for comfort and blood pressure obtained. Initial blood pressure recorded as 120s over 60s. Blood sugar obtained in the 90s. Patient slowly regained cognition but seemed confused. Was noted to have some shaking during episode that was almost seizure-like however patient's improvement does not fit with postictal or seizure activity, suspect episode was vasovagal. Has had multiple watery stools overnight given bowel regimen that was initiated yesterday. Concern for some mild dehydration or hypovolemia this morning. IV fluids were held overnight because of placement of IV and alarm continuing to go off interrupting patient's sleep. 500 cc bolus LR given during event. No chest compressions or additional medications were administered. Labs obtained. Labs showing consistent findings with dehydration/hypovolemia. Creatinine increased consistent with TIP, phosphorus up and bicarb down consistent with her numerous loose stools. Of concern is her lactate is up to 9 and LFTs have jumped significantly for AST greater than 2800 and ALT greater than 1500. Consistent with hepatocellular injury/shock liver. After completion of 500 cc bolus, will give another 1 L bolus. Reevaluation an hour after event, patient is somewhat more alert. Mottling resolved. Abdomen remains tender diffusely but no rebound, guarding. Bowel sounds hypoactive. Patient remains afebrile. White cell count normalized on morning labs. Upgraded to stepdown level of care
--- NOTE | 2022-08-03 10:06 | EXP.CARD.PN ---
Subjective Subjective Date: 08/03/22 Time: 09:30 Principal diagnosis: constipation, pyelonephritis, ileus, elevated troponin Interval history: This is a 71-year-old female who presented to the emergency department with a 3-day history of nausea, vomiting and abdominal pain. The patient had recently had a right hip replacement and was on pain medications following the surgery. She was also taking Imodium/Lomotil and large amounts which she reports that she does chronically. The patient had worsening constipation then developed the nausea, vomiting and abdominal pain. On arrival to the emergency department the patient had a CT of the abdomen which showed a striated nephrogram on the left concerning for pyelonephritis. She also had a moderate to large amount of stool within her colon. The patient was treated with enemas yesterday and did have bowel movements. She is still complaining of the nausea and abdominal pain. She states that she just does not feel well in her belly area. The patient also had an elevated troponin on admission at 0.27 which is trended down to 0.08. She denies any chest pain or pressure. She denies any shortness of breath or edema. She denies any fever, chills, PND or orthopnea. The patient had a rapid response called this morning where she was in the bathroom and got very weak and vagaled. On my evaluation of the patient this morning she is lying in bed and does not really remember the episode this morning. Exam Data for Last 24 hours Vital signs and Labs for Last 24 Hours: Temp Pulse Resp BP Pulse Ox 98.2 F 95 H 20 150/96 H 98 08/03/22 04:00 08/03/22 04:00 08/03/22 04:00 08/03/22 04:00 08/03/22 04:00 Laboratory Results - last 24 hr 08/02/22 14:59: WBC 24.8 H*, RBC 4.25, Hgb 12.5, Hct 40.8, MCV 95.9, MCH 29.4, MCHC 30.7 L, RDW 15.0, Plt Count 417 D, MPV 7.2 L, Neut % (Auto) 91.8 H, Lymph % (Auto) 3.6 L, [place] % (Auto) 2.5, Eos % (Auto) 1.7, Baso % (Auto) 0.3, Neut # (Auto) 22.7 H, Lymph # (Auto) 0.9, [place] # (Auto) 0.6, Eos # (Auto) 0.4, Baso # (Auto) 0.1, Total Counted 100, Neutrophils % (Manual) 92 H, Lymphocytes % (Manual) 4 L, Monocytes % (Manual) 4, Platelet Estimate Slight increase, RBC Morphology Normal 08/02/22 14:59: Sodium 132 L, Potassium 3.3 L, Chloride 92 L, Carbon Dioxide 23, Anion Gap 20.3 H, BUN 16, Creatinine 0.70, Estimated Creat Clear 64, Estimated GFR 83, Est GFR ( Amer) 100, Glucose 161 H, Calcium 9.0, Total Bilirubin 0.8, AST 61 H, ALT 47, Alkaline Phosphatase 171 H, Total Protein 6.1 L, Albumin 3.6, Globulin 2.5, Albumin/Globulin Ratio 1.4 08/03/22 07:46: POC Glucose 94 08/03/22 07:56: Lactate 9.3 H 08/03/22 07:56: Triglycerides 102, Cholesterol 142, LDL Cholesterol Direct < 30.00 L, VLDL Cholesterol 20, HDL Cholesterol 79 H, Cholesterol/HDL Ratio 1.8 08/03/22 07:56: WBC 9.7 D, RBC 4.74, Hgb 14.1 D, Hct 46.8, MCV 98.7, MCH 29.7, MCHC 30.1 L, RDW 15.0, Plt Count 481 H, MPV 7.9, Neut % (Auto) 86.4 H, Lymph % (Auto) 10.9, [place] % (Auto) 0.9 L, Eos % (Auto) 1.5, Baso % (Auto) 0.3, Neut # (Auto) 8.3 H, Lymph # (Auto) 1.1, [place] # (Auto) 0.1, Eos # (Auto) 0.1, Baso # (Auto) 0.0, Total Counted 100, Neutrophils % (Manual) 55, Band Neutrophils % 10.0 H, Lymphocytes % (Manual) 20, Monocytes % (Manual) 7, Metamyelocytes % 4.0 H, Myelocytes % 1, Blast Cells % 3.0, Platelet Estimate Normal, RBC Morphology Normal 08/03/22 07:56: Sodium 130 L, Potassium 3.6, Chloride 91 L, Carbon Dioxide 14 L, Anion Gap 28.6 H, BUN 24 H D, Creatinine 1.10 H D, Estimated Creat Clear 59, Estimated GFR 49 L, Est GFR ( Amer) 59 D, Glucose 143 H, Calcium 9.6, Phosphorus 8.0 H D, Magnesium 3.2 H D, Total Bilirubin 1.1, AST 2853 H* D, ALT 1594 H*, Alkaline Phosphatase 362 H, Total Protein 6.7, Albumin 3.8, Globulin 2.9, Albumin/Globulin Ratio 1.3 08/03/22 07:56: Troponin I 0.08 H I & O for Last 24 hours: Intake & Output 07/31/22 08/01/22 08/02/22 08/03/22 23:59 23:59 23:59 23:59 Intake Total 2600 / 2700 1278 / 1378
--- NOTE | 2022-08-03 10:40 | PC.NURSE ---
late entry: 1040 during huddle/care meeting with , notified Dr Francis that pt has decreased bowel sounds in sarthak left quads.
[2022-08-03 12:02] LABS: Reflex Lactic Add Lactic Reflex
[2022-08-03 13:18] LABS: Chloride 89 mmol/L (98-107)
[2022-08-03 13:19] LABS: Potassium 4.1 mmoL/L (3.5-5.1); Sodium 128 mmol/L (136-145)
[2022-08-03 13:21] LABS: Alkaline Phosphatase 379 U/L (38-126); Ammonia 10 umol/L (9-30); Anion Gap 22.1 mEq/L (5-15); Blood Urea Nitrogen 30 mg/dl (7-17); Carbon Dioxide 21 mmol/L (22.0-30.0); Creatinine Clearance Estimated 50 mL/min (50-200); Estimated Glomerular Filt Rate 40 ml/min (>60); GFR (African American) 49 ML/MIN (>60)
[2022-08-03 13:22] LABS: Albumin Level 3.2 g/dl (3.5-5.0); Albumin/Globulin Ratio 1.1 (1.1-1.8); Globulin 2.8 g/dL (1.3-3.2); Glucose 82 mg/dl (74-100); Phosphorous 7.7 mg/dl (2.5-4.5)
[2022-08-03 13:26] LABS: Lactic Acid Follow Up (RFLX 1) 6.3 mmol/L (0.7-2.1)
[2022-08-03 13:28] LABS: INR 1.31 (0.9-1.1); Prothrombin Time 13.9 seconds (10.1-12.5)
--- NOTE | 2022-08-03 13:46 | EXP.ACUTE.PN ---
Subjective *Date: 08/03/22 *Time: 13:49 Interval history: Patient had an event this morning of what was consistent with vasovagal syncope. Improved hemodynamics since event at approximately 7:45. Color appears better. No nausea or vomiting. Is alert, orientation waxes and wanes. Has not slept well over the past 2 to 3 days. Does appear to have some intermittent confusion. Initial slurred speech after syncopal event earlier today has resolved. Discussed case with today. Expressed concerns about some improvements in her labs however some worsening findings as well. Still requires inpatient management. Medical Exam Vital signs and Labs for Last 24 Hours: Vital Signs Temp Pulse Pulse Pulse Resp BP Pulse Ox 08/03/22 11:16 97.8 F 08/03/22 09:41 91 H 22 104/59 L 96 08/03/22 09:40 88 95 08/03/22 00:00 90 08/03/22 04:00 100 H 08/03/22 04:00 98.2 F 95 H 20 150/96 H 98 08/03/22 00:00 90 08/02/22 20:00 97.3 F L 93 H 18 149/78 H 97 08/02/22 16:00 89 08/02/22 15:20 97.2 F L 85 18 137/75 99 Intake and Output 08/02/22 08/03/22 08/03/22 23:59 07:59 15:59 Intake Total 100 / 100 0 / 100 Output Total 0 / 0 0 / 0 Balance 0 / 1378 100 / 100 0 / 100 Intake: Intake, Oral Amount 0 / 0 Intake, Total IV Amount 100 / 100 Cefepime HCl 2 gm In 0.9 % 100 / 100 Sodium Chloride 100 ml @ 200 mls/hr IV Q12H [facility] Rx#:[id number] Output: Output, Urine Amount 0 / 0 0 / 0 Other: Number of Unmeasured Voids 1 Weight 78.471 kg Patient Weight 08/03/22 23:59 Weight 78.471 kg Laboratory Results - last 24 hr 08/02/22 14:59: WBC 24.8 H*, RBC 4.25, Hgb 12.5, Hct 40.8, MCV 95.9, MCH 29.4, MCHC 30.7 L, RDW 15.0, Plt Count 417 D, MPV 7.2 L, Neut % (Auto) 91.8 H, Lymph % (Auto) 3.6 L, [place] % (Auto) 2.5, Eos % (Auto) 1.7, Baso % (Auto) 0.3, Neut # (Auto) 22.7 H, Lymph # (Auto) 0.9, [place] # (Auto) 0.6, Eos # (Auto) 0.4, Baso # (Auto) 0.1, Total Counted 100, Neutrophils % (Manual) 92 H, Lymphocytes % (Manual) 4 L, Monocytes % (Manual) 4, Platelet Estimate Slight increase, RBC Morphology Normal 08/02/22 14:59: Sodium 132 L, Potassium 3.3 L, Chloride 92 L, Carbon Dioxide 23, Anion Gap 20.3 H, BUN 16, Creatinine 0.70, Estimated Creat Clear 64, Estimated GFR 83, Est GFR ( Amer) 100, Glucose 161 H, Calcium 9.0, Total Bilirubin 0.8, AST 61 H, ALT 47, Alkaline Phosphatase 171 H, Total Protein 6.1 L, Albumin 3.6, Globulin 2.5, Albumin/Globulin Ratio 1.4 08/03/22 07:46: POC Glucose 94 08/03/22 07:56: Lactate 9.3 H 08/03/22 07:56: Triglycerides 102, Cholesterol 142, LDL Cholesterol Direct < 30.00 L, VLDL Cholesterol 20, HDL Cholesterol 79 H, Cholesterol/HDL Ratio 1.8 08/03/22 07:56: WBC 9.7 D, RBC 4.74, Hgb 14.1 D, Hct 46.8, MCV 98.7, MCH 29.7, MCHC 30.1 L, RDW 15.0, Plt Count 481 H, MPV 7.9, Neut % (Auto) 86.4 H, Lymph % (Auto) 10.9, [place] % (Auto) 0.9 L, Eos % (Auto) 1.5, Baso % (Auto) 0.3, Neut # (Auto) 8.3 H, Lymph # (Auto) 1.1, [place] # (Auto) 0.1, Eos # (Auto) 0.1, Baso # (Auto) 0.0, Total Counted 100, Neutrophils % (Manual) 55, Band Neutrophils % 10.0 H, Lymphocytes % (Manual) 20, Monocytes % (Manual) 7, Metamyelocytes % 4.0 H, Myelocytes % 1, Blast Cells % 3.0, Platelet Estimate Normal, RBC Morphology Normal 08/03/22 07:56: Sodium 130 L, Potassium 3.6, Chloride 91 L, Carbon Dioxide 14 L, Anion Gap 28.6 H, BUN 24 H D, Creatinine 1.10 H D, Estimated Creat Clear 59, Estimated GFR 49 L, Est GFR ( Amer) 59 D, Glucose 143 H, Calcium 9.6, Phosphorus 8.0 H D, Magnesium 3.2 H D, Total Bilirubin 1.1, AST 2853 H* D, ALT 1594 H*, Alkaline Phosphatase 362 H, Total Protein 6.7, Albumin 3.8, Globulin 2.9, Albumin/Globulin Ratio 1.3 08/03/22 07:56: Troponin I 0.08 H 08/03/22 13:00: Sodium 128 L, Potassium 4.1, Chloride 89 L, Carbon Dioxide 21 L, Anion Gap 22.1 H, BUN 30 H, Creatinine 1.30 H, Estimated Creat Clear 50, Estimated GFR 40 L, Est GFR ( Flori
--- NOTE | 2022-08-03 13:48 | US_ITS ---
FINAL REPORT CLINICAL HISTORY: eval liver, cirrhosis? COMPARISON: 06/22/2022 FINDINGS: Sonographic images of the right upper quadrant were obtained. The pancreas is partially obscured. There is a 1.7 x 0.6 cm relatively hyperechoic focus in the superior right lobe of the liver probably representing hemangioma. There is a large amount of sludge in the gallbladder. There is no evidence of biliary ductal dilatation.The common duct measures 4mm. Limited images of the right kidney are unremarkable. There is a small pleural effusion. There is a small amount of ascites surrounding the liver. IMPRESSION: 1.7 cm hyperechoic focus right lobe of the liver favored to be hemangioma. Infusion liver mass protocol CT could confirm. Distended sludge filled gallbladder. Reviewed, Interpreted and Dictated by Celestine Jones MD Transcribed by Simona Castillo Authenticated and [facility]
[2022-08-03 14:06] LABS: Alanine Aminotransferase 2469 U/L (12-78)
--- NOTE | 2022-08-03 14:09 | EXP.SEPSISRE ---
[facility] Tissue Perfusion Eval Sepsis Re-Evaluation Performed: Yes Date Performed: 08/03/22 Time Performed: 09:45
[2022-08-03 14:35] LABS: Aspartate Amino Transferase 4841 U/L (14-36)
[2022-08-03 15:08] LABS: Reflex Lactic (2 hrs) Add Lactic Reflex
--- NOTE | 2022-08-03 15:48 | PC.NURSE ---
Addendum entered by Angela Yanes RN 08/03/22 17:23: [address] Francis ok to insert duran r/t closer monitoring of pt i/o Original Note: [id number] Francis on phone, made aware of pt lactic acid of 6.3. md also aware of pt ast/alt cmp results. [address] Tito MD aware of episode of pt difficulty breathing and skin discoloration following attempt to get up to the bsc. notified md that when i rounded on pt following episode that occurred with Florencia Faustin RN and Shantel Simpson RN that pt neck and chest were red/white splotches and motteling and pt circumoral area were purple. also notified Md that pt has not voided this shift.
[2022-08-03 16:39] LABS: Lactic Acid Follow up (RFLX 2) 7.3 mmol/L (0.7-2.1)
--- NOTE | 2022-08-03 16:44 | PC.NURSE ---
received critical lab value at 1638. Lactic acid 7.[address] Francis face to face at 1640. no new orders at this time.
--- NOTE | 2022-08-03 17:50 | EXP.DC.SUM ---
General Admission date:: 08/02/22 Discharge date: 08/03/22 HPI HPI HPI: This is a 71-year-old female seen in consultation from the Hospitalist Service for evaluation regarding abdominal pain, constipation, and leukocytosis. Please see HPI forwarded from admission H&P below. She states that she currently has fairly severe abdominal pain that is mostly in the mid and lower abdomen. Some progression globally. Forwarded from admission H&P: Ms. Atkinson is a 71-year-old female with a past medical history of Chronic Pain, History of C. diff, colitis, HTN, Hypothyroidism and Hyperlipidemia. She presents to [facility] due to a 3-day history of worsening abdominal pain associated with nausea, vomiting and constipation. She was seen in the ER on 07/30 with the same symptoms, she was given antiemetics with reported worsening of symptoms, so she came back to the ER for further evaluation. In the ER, the patient underwent a CT of the abdomen and pelvis that showed a striated nephogram on the left concerning for Pyelonephritis and a moderate to a large amount of stool within the colon. Urinalysis was unremarkable. CBC showed an elevated WBC at 13.7, CMP showed a Na of 133, K of 2.7, Creatinine of 1.20. AST of 62. Phosphorus was 2.0. EKG showed sinus tachycardia with rate in the 120's with ST depression in leads V2 and V3. Troponin was elevated at 0.27. BNP was elevated at 21,500. In the ER, the patient was given iv fluids, Flagyl, Rocephin and Analgesics. The patient will be admitted with initial impression: Coliits/Constipation, Dehydration, Hypokalemia, TIP, NSTEMI. Hospital Course Hospital Course Hospital Course: 71-year-old female with past medical history of chronic pain, history of C diff, HTN, Hypothyroidism and Hyperlipidemia presents with worsening abdominal pain, nausea, vomiting and constipation over a 3-day period with the inability to tolerate oral intake.? Further review, patient has not had a bowel movement in almost 4 days.? Bowel movements were not regular before then.? Has been on opiate pain meds since her right hip replacement a month ago as well as on antimotility's (Imodium) daily.? Concern for infection, severe constipation, septic shock given lab abnormalities, tachycardia, leukocytosis, elevated lactate. - Septic shock - Coliits/Constipation -Ileus versus obstruction Presented with tachycardia, elevated lactate greater than 4, leukocytosis, possible source with colitis versus pyelonephritis (based on CT), and acute organ dysfunction. Patient was started on broad-spectrum antibiotics with vancomycin p.o., cefepime, Flagyl. Blood cultures and urinalysis obtained. Blood cultures negative at 48 hours. Urinalysis bland with no concern for UTI. Antibiotics were de-escalated to cefepime due to leukocytosis to continue empiric therapy. Leukocytosis initially was 13,000 on admission, increased to 28,000 on 08/02. Normalized to 9.7 thousand on morning of 08/03. Abdominal pain, nausea, vomiting were present on admission. Responded well to IV fluids with resolution of her nausea and vomiting. CT of her abdomen and pelvis was obtained showing moderate to large stool burden throughout colon. No other acute findings. Surgery was consulted. Patient was initiated on bowel regimen including MiraLAX, docusate senna, enemas. Had numerous loose bowel movements with improvement in stool burden. Serial exams positive for pain but negative for rebound or peritoneal signs. Developed more distention on the morning of 08/03. Had an episode of of syncope while trying to go to the bathroom on 08/03. No loss of pulse. Patient improved when she was laid flat. Distention progressed with repeat labs on 08/03 showing increasing lactate to 9.3. Liver e
--- NOTE | 2022-08-03 18:42 | PC.NURSE ---
175, called report to Adrianna Villar RN at . Dr Francis had previously called report to ER as well.
--- NOTE | 2022-08-03 18:51 | PC.NURSE ---
1758 contacted [facility] for transport unable to transport at this time r/t 2 other transfers pending. 1804 attempted to contact [facility] for transport, no answer at station notified Dr Francis that ground is unable to transport pt at this time. per MD contact [facility] for transport 1817 contacted Tawn[facility] at [facility], [place] 6 accepted flight with a 50-55 minute turnover/flight time.
--- NOTE | 2022-08-03 18:56 | PC.NURSE ---
[address] for CTA of abd pelvis. by Dseire Yanes RN, Jessica segundo SRNA, Leelee Montilla SRNA per Dr Francis do not proceed with scan r/t [facility] will complete scan upon arrival. 1745 pt transported back to unit
--- NOTE | 2022-08-03 19:47 | PC.NURSE ---
1910 [facility] at bedside assuming care of pt at this time.
[2022-08-05 18:05] LABS: HBsAg Screen Negative (Negative); Hep A Ab, IGM Negative (Negative); Hep B Core Ab, IgM Negative (Negative)
== END 2022-08-03 19:24 | disposition short-term general hospital (02) | DRG 871 ==
LOC: ER 20:10 → 2ND 21:26
PROVIDERS: Nurse Practitioner Family; Student in an Organized Health Care Education/Training Program; Admitting Provider Internal Medicine Adolescent Medicine; Emergency Provider Emergency Medicine; PCP Emergency Medicine; Visit Provider Internal Medicine Adolescent Medicine
DX: A41.9 Sepsis, unspecified organism (principal); I21.4 Non-ST elevation (NSTEMI) myocardial infarction; R65.21 Severe sepsis with septic shock; K72.00 Acute and subacute hepatic failure without coma; N17.9 Acute kidney failure, unspecified; K56.7 Ileus, unspecified; N10 Acute pyelonephritis; E78.5 Hyperlipidemia, unspecified; E87.6 Hypokalemia; E03.9 Hypothyroidism, unspecified; Z96.641 Presence of right artificial hip joint; K52.9 Noninfective gastroenteritis and colitis, unspecified; K59.00 Constipation, unspecified; E86.0 Dehydration; G89.29 Other chronic pain; E83.39 Other disorders of phosphorus metabolism
CPT/HCPCS: 36410; 36415; 71045; 74018; 74177; 76705; 80053; 80061; 80074; 81001; 82140; 82150; 82962; 83605; 83690; 83735; 83880; 84100; 84443; 84484; 85007; 85025; 85610; 87040; 87077; 87186; 93005; 93306; 94640; 96360; 96374; 96375; 96376; 99284; 99285; C9803; J0696; J2405; Q9967; U0003; U0005

== ENCOUNTER 2022-09-06 10:37 | Observation (INO) | payer MEDICARE, OTHER, SELFPAY ==
[2022-09-06] VITALS (11 sets, daily range): BP systolic 123–157; BP diastolic 61–74; PULSE 92–105; RESP 16–22; TEMP 36.8–36.9; O2SAT 90–97; BMI 26.6; BMI 29.6
[2022-09-06 11:03] LABS: Chloride 99 mmol/L (98-107); Sodium 135 mmol/L (136-145)
[2022-09-06 11:04] LABS: Potassium 4.4 mmoL/L (3.5-5.1)
--- NOTE | 2022-09-06 11:04 | HMH.EDABDPAI ---
Discharge Plan Disposition Patient Disposition: Admitted Condition: Fair Prescriptions Prescriptions: No Action potassium chloride 20 mEq tablet,ER particles/crystals 20 meq PO BID diphenoxylate-atropine [Lomotil] 2.5-0.025 mg tablet 2 tab PO TID PRN (Reason: diarrhea) 30 Days Qty: 90 2RF fluticasone propion-salmeterol 250-50 mcg/dose blister with device 1 inh inhalation BID duloxetine [Cymbalta] 60 mg capsule,delayed release(DR/EC) 60 mg PO BID tramadol 50 mg tablet 50 mg PO BID PRN (Reason: breakthrough pain) 10 Days Qty: 20 0RF promethazine 25 mg suppository 25 mg ME Q6H PRN (Reason: nausea and vomiting) Qty: 12 1RF oxycodone 10 mg tablet See Rx Instructions .ROUTE .COMPLEX Qty: 150 0RF Rx Instructions: Take one tablet four times daily and one at bedtime; gabapentin 600 mg tablet 600 mg PO QID Qty: 120 0RF acyclovir 400 MG tablet 400 mg PO BID amlodipine 10 MG tablet 10 mg PO DAILY losartan 50 mg tablet 50 mg PO DAILY levothyroxine 25 mcg tablet 25 mcg PO DAILY oxycodone 10 mg tablet 10 mg PO HS atorvastatin 20 MG tablet 20 mg PO DAILY clonidine HCl 0.1 MG tablet 0.2 mg PO BID cetirizine 10 mg Tablet 10 mg PO DAILY losartan [Cozaar] 25 mg Tablet 25 mg PO DAILY aspirin 81 mg Tablet 81 mg PO DAILY apixaban 5 mg Tablet 5 mg PO BID methocarbamol 1,000 mg Tablet 1,000 mg PO QID Referrals Follow up/Referrals: Chandra Leahy MD [Primary Care Provider] - See instructions Clinical Impressions Clinical Impression: Cystitis Dehiscence of external surgical wound Qualifiers: Encounter type: sequela Qualified Code(s): T81.31XS - Disruption of external operation (surgical) wound, not elsewhere classified, sequela Discharge ED Provider: Aniya Sparrow Abdominal Pain HPI General Chief Complaint: Abdominal Pain Stated Complaint: Wound recheck? Pain? [facility] Time Seen by Provider: 09/06/22 11:08 Mode of Arrival: EMS Source of Information: Patient Limitations: No Limitations Description of Symptoms (Recalled from ER Triage Doc. by RN): Patient comes in via EMS from [facility]. Patient has multiple complaints. Patient reports abdominal pain and poor treatment from [facility] and does not want to go back there. History of Present Illness HPI narrative: The patient presents to the emergency department via EMS after having checked herself out from a local prison. She states she checked herself out because there was suboptimal care at that institution. She was transferred there after having had a colostomy for perforated colon. This surgery was done at [facility]. Her primary care physician is Dr. Leahy. She complains of pain. She denies any fevers, vomiting, or diarrhea. She had missed her pain medication at the prison today. Related Data Home Medications Medication Instructions Recorded Confirmed atorvastatin 20 mg tablet 20 mg PO DAILY Cholesterol 06/07/17 08/01/22 clonidine HCl 0.1 mg tablet 0.2 mg PO BID High blood pressure 06/07/17 08/02/22 acyclovir 400 mg tablet 400 mg PO BID Infection 10/24/19 08/02/22 amlodipine 10 mg tablet 10 mg PO DAILY High blood pressure 10/24/19 08/01/22 duloxetine 60 mg capsule,delayed 60 mg PO BID Depression 04/10/22 08/01/22 release (Cymbalta) potassium chloride 20 mEq 20 meq PO BID Supplement 06/09/22 08/02/22 tablet,extended release(part/cryst) fluticasone 250 mcg-salmeterol 50 1 inh inhalation BID Breathing 06/22/22 08/02/22 mcg/dose blistr powdr for problems inhalation losartan 50 mg tablet 50 mg PO DAILY High blood pressure 08/01/22 08/01/22 levothyroxine 25 mcg tablet 25 mcg PO DAILY THYROID 08/02/22 08/02/22 oxycodone 10 mg tablet 10 mg PO HS Pain 08/02/22 08/02/22 apixaban 5 mg tablet 5 mg PO BID Blood thinner 09/06/22 09/06/22 aspirin 81 mg tablet 81 mg
[2022-09-06 11:06] LABS: Alanine Aminotransferase 30 U/L (12-78); Albumin Level 2.4 g/dl (3.5-5.0); Albumin/Globulin Ratio 0.6 (1.1-1.8); Alkaline Phosphatase 372 U/L (38-126); Anion Gap 9.4 mEq/L (5-15); Aspartate Amino Transferase 34 U/L (14-36); Bilirubin,Total 0.3 mg/dl (0.2-1.3); Blood Urea Nitrogen 3 mg/dl (7-17); Calcium 8.1 mg/dl (8.4-10.2); Carbon Dioxide 31 mmol/L (22.0-30.0); Creatinine Clearance Estimated 58 mL/min (50-200); Estimated Glomerular Filt Rate 122 ml/min (>60); GFR (African American) 148 ML/MIN (>60); Globulin 3.9 g/dL (1.3-3.2); Glucose 95 mg/dl (74-100); Lipase 131 U/L (23-300); Total Protein,Serum 6.3 g/dl (6.3-8.2)
[2022-09-06 11:07] LABS: Basophils % 0.2 % (0.1-2.0); Eosinophils # 0.1 K/mm3 (0.0-0.4); Eosinophils % 0.5 % (0.1-12.0); Hematocrit 25.4 % (37.0-47.0); Hemoglobin 7.6 g/dL (12.2-16.2); Lymphocytes # 1.4 K/mm3 (0.7-4.5); Lymphocytes % 8.7 % (10-50); Mean Corpuscular HGB Conc 29.8 g/dL (31.8-35.4); Mean Corpuscular Hemoglobin 27.6 pg (27.0-31.2); Mean Corpuscular Volume 92.6 fl (81-99); Mean Platelet Volume 7.3 fl (7.4-10.4); Monocytes # 0.6 K/mm3 (0.1-1.0); Monocytes % 4.1 % (1.7-9.3); Neutrophils # 13.4 K/mm3 (1.8-7.8); Neutrophils % 86.5 % (37.0-80.0); Platelet Count 847 K/mm3 (142-424); Red Blood Count 2.74 M/mm3 (4.20-5.40); Red Cell Distribution Width 16.2 % (11.5-17.5); White Blood Count 15.6 K/mm3 (4.8-10.8)
[2022-09-06 11:15] LABS: MANUAL DIFFERENTIAL MANUAL DIFFERENTIAL (MANUAL DIFF)
[2022-09-06 11:32] LABS: Lactic Acid 0.9 mmol/L (0.7-2.1)
[2022-09-06 11:35] LABS: Microscopic, Urine URINE MICROSCOPIC (MICROSCOPIC)
[2022-09-06 11:37] LABS: Appearance,Urine TURBID (Clear); Bilirubin,Urine Negative (Negative); Blood, Urine TRACE-I (Negative); Color,Urine YELLOW (Yellow); Glucose,Urine (UA) Negative (Negative); Ketones,Urine Negative (Negative); Leukocyte Esterase,Urine 1+ (Negative); Nitrate,Urine Negative (Negative); Protein,Urine 2+ (Negative); Specific Gravity, Urine 1.025 (1.005-1.030); Urobilinogen,Urine 0.2 EU/dl (0.2)
[2022-09-06 12:12] LABS: RBC,Urine Occasional #/hpf (0-3)
[2022-09-06 12:13] LABS: Bacteria,Urine 2+ /lpf
[2022-09-06 12:37] LABS: Hypochromasia 1+; Lymphocytes % 16 % (10-50); Macrocytosis 1+; Monocytes % 6 % (2-9); Neutrophils % 78 % (42-76); Platelet Estimate Marked Increase; RBC Morphology 51; Total Cells Counted 100
--- NOTE | 2022-09-06 14:18 | PC.NURSE ---
called the [facility], to find someone to speak to about this pt. left a number for a return phone call
--- NOTE | 2022-09-06 15:07 | PC.NURSE ---
ED doctor on phone with [facility]
[2022-09-06 15:20] LABS: Coronavirus 19, PCR Not Detected (NotDetected); Influenza A, PCR Not Detected (NotDetected); Influenza B, PCR Not Detected (NotDetected)
--- NOTE | 2022-09-06 15:46 | SW/DCPLANNER ---
Addendum entered by Clarisa Tang 09/07/22 10:54: Patient will discharge to [facility] today SNF level of care. Addendum entered by Clarisa Tang 09/07/22 07:45: [facility] stated they can accept this patient once medically stable for discharge. Original Note: I was called to ED to speak with this patient/family regarding home health services. Patient was admitted to [facility] SNF level of care from on 09/05/11 per . Patient is not able to ambulate and does not feel that he can care for patient at home. Patient had limited involvement with conversation regarding discharge plans due to needing to make phone calls to her MD regarding pain medications. I expressed to patient the importance of discharge planning due not returning to [facility] and not being able to care for her at home. Patient stated I will go anywhere you send me, I have to make this phone call . stated that he would be fine with attempting placement at the following facilities: [facility], [place], [facility] and [facility]. Patient information has been faxed to all facilities at this time.
--- NOTE | 2022-09-06 16:44 | PC.NURSE ---
FLIGHT READINESS TECHNICIAN NOTIFIED OF ADMISSION, REQUEST FOR BED
--- NOTE | 2022-09-06 17:22 | PC.NURSE ---
patients bed changed due to incontinence, no other needs at this time
--- NOTE | 2022-09-06 17:35 | PC.NURSE ---
arrived by stretcher from ED
--- NOTE | 2022-09-06 19:23 | EXP.HP ---
History of Present Illness *Admission Date: 09/06/22 *Reason for visit:: abdominal pain, weakness *History of present illness: Ms. reno is a 71-year-old female with recent prolonged hospitalization at after being transferred to from [facility] for ileus. Patient had developed worsening symptoms of abdominal distention, pain, elevated liver enzymes. Was transferred to and found to have portal vein thrombosis. Subsequently had exploratory laparotomy after a week of admission diagnosing ischemic bowel with perforation. 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 Was recently discharged 4 to 5 days ago to [facility] for rehab due to her weakness from prolonged hospitalization. She presented today to the ER from [facility] via EMS by her own doing. She called EMS because she did not feel they were managing her well with addressing her pain and general care. She refuses to go back to the alf at this time. is with her and states he does not have the ability to care for her at home given her weakness and the need for full assistance. Work-up in the ER positive for UTI. ER requested admission for treatment of UTI and assistance with further placement. On arrival to the floor, patient appears stable. States she checked herself out because of suboptimal care at that institution. She complains of pain though appears comfortable while she is eating her dinner.? She denies any fevers, vomiting, or diarrhea. Stable on room air [facility] Disclaimer: The information contained in this section may have been updated after the patient was seen, as this information can be updated by other users. Medical History (Updated 09/06/22 @ 19:37 by Zoran Francis MD) Abdominal pain Abnormal electrocardiogram [ECG] [EKG] TIP (acute kidney injury) C. difficile diarrhea Colostomy in place Elevated liver enzymes HLD (hyperlipidemia) HTN (hypertension), benign Hypokalemia Hypokalemia due to loss of potassium Hypothyroidism IBS (irritable bowel syndrome) Ileus Perforated sigmoid colon Surgical History (Updated 09/06/22 @ 19:34 by Zoran Francis MD) History of arthroscopy of left shoulder History of total right hip replacement Family History No significant family history Social History Smoking Status: Never smoker second hand exposure: No alcohol intake: never current occupational status: retired Travel in the last 8 weeks: None household members: spouse housing: house current occupational exposures/hazards: No caffeine: No Review of Systems Review of Systems Review of systems (narrative): 14 point review of systems performed, pertinent positives and negatives as per HPI Meds Home Medications and Allergies Home Medications Medication Instructions Recorded Confirmed Type atorvastatin 20 mg tablet 20 mg PO DAILY Cholesterol 06/07/17 08/01/22 History clonidine HCl 0.1 mg tablet 0.2 mg PO BID High blood pressure 06/07/17 08/02/22 History acyclovir 400 mg tablet 400 mg PO BID Infection 10/24/19 08/02/22 History amlodipine 10 mg tablet 10 mg PO DAILY High blood pressure 10/24/19 08/01/22 History duloxetine 60 mg capsule,delayed 60 mg PO BID Depression 04/10/22 08/01/22 History release (Cymbalta) diphenoxylate-atropine 2.5 2 tab PO TID PRN diarrhea 30 days 06/09/22 08/01/22 Rx mg-0.025 mg tablet (Lomotil) #90 tabs potassium chloride 20 mEq 20 meq PO BID Supplement 06/09/22 08/02/22 History tablet,extended release(part/cryst) fluticasone 250 mcg-salmeterol 50 1 inh inhalation BID Breathing 06/22/22 08/02/22 History mcg/dose blistr powdr for problems inhalation tramadol 50 mg tablet 50 mg PO BID PRN breakthrough pain 06/23/22 08/01/22 Rx 10 days #20 tabs losartan 50 mg tablet 50 mg PO DAILY High blood pressure 08/01/22
--- NOTE | 2022-09-06 19:58 | PC.NURSE ---
Patient not able to state all home medications and dosages
--- NOTE | 2022-09-06 22:44 | ECG_ITS ---
APPROVED REPORT Exam: Resting ECG HR:96 bpm ECG Measurements Heart Rate 96 AXES OR 124 P 65 QRSd 84 QRS 53 QT 335 T 74 QTc 389 Conclusion SINUS RHYTHM NORMAL ECG UNCONFIRMED REPORT Electronically signed by : Connor López MD 09/15/2022 16:28:43
--- NOTE | 2022-09-06 22:48 | PC.NURSE ---
Patient called out for chest pain. EKG done, It read Sinus Rhythm, MARCIA Decker notifed. No new orders
[2022-09-07 04:00] VITALS: BP 137/70; PULSE 96; RESP 19; TEMP 36.7; O2SAT 93; BMI 29.5
--- NOTE | 2022-09-07 05:03 | PC.NURSE ---
Patient has had no other complaints tonight. did come and visit patient. Patient did refuse a bath when offered one. Patient has rested in bed.
[2022-09-07 07:07] LABS: Basophils % 0.2 % (0.1-2.0); Eosinophils # 0.1 K/mm3 (0.0-0.4); Eosinophils % 0.7 % (0.1-12.0); Lymphocytes # 1.6 K/mm3 (0.7-4.5); Lymphocytes % 10.3 % (10-50); Mean Corpuscular HGB Conc 29.5 g/dL (31.8-35.4); Mean Corpuscular Hemoglobin 27.4 pg (27.0-31.2); Mean Corpuscular Volume 93.1 fl (81-99); Mean Platelet Volume 7.2 fl (7.4-10.4); Monocytes # 0.7 K/mm3 (0.1-1.0); Monocytes % 4.8 % (1.7-9.3); Neutrophils # 12.8 K/mm3 (1.8-7.8); Platelet Count 908 K/mm3 (142-424); Red Cell Distribution Width 16.4 % (11.5-17.5); White Blood Count 15.2 K/mm3 (4.8-10.8)
[2022-09-07 07:09] LABS: Chloride 100 mmol/L (98-107); MANUAL DIFFERENTIAL MANUAL DIFFERENTIAL (MANUAL DIFF)
[2022-09-07 07:10] LABS: Potassium 3.7 mmoL/L (3.5-5.1); Sodium 136 mmol/L (136-145)
[2022-09-07 07:12] LABS: Alanine Aminotransferase 25 U/L (12-78); Anion Gap 9.7 mEq/L (5-15); Aspartate Amino Transferase 26 U/L (14-36); Blood Urea Nitrogen 3 mg/dl (7-17); Carbon Dioxide 30 mmol/L (22.0-30.0); Creatinine Clearance Estimated 65 mL/min (50-200); Estimated Glomerular Filt Rate 122 ml/min (>60); GFR (African American) 148 ML/MIN (>60)
[2022-09-07 07:13] LABS: Albumin Level 2.5 g/dl (3.5-5.0); Albumin/Globulin Ratio 0.7 (1.1-1.8); Alkaline Phosphatase 322 U/L (38-126); Bilirubin,Total 0.3 mg/dl (0.2-1.3); Calcium 8.2 mg/dl (8.4-10.2); Globulin 3.8 g/dL (1.3-3.2); Glucose 93 mg/dl (74-100); Magnesium 1.5 mg/dl (1.6-2.3); Total Protein,Serum 6.3 g/dl (6.3-8.2)
[2022-09-07 07:21] LABS: Anisocytosis 1+; Lymphocytes % 11 % (10-50); Macrocytosis 1+; Monocytes % 2 % (2-9); Neutrophils % 87 % (42-76); Platelet Estimate Marked Increase; Total Cells Counted 100
[2022-09-07 07:22] LABS: Hypochromasia 1+; Ovalocytes 1+
--- NOTE | 2022-09-07 07:29 | PC.NURSE ---
[facility] to call [facility] request [facility] med list but haven't been able to get an answer
[2022-09-07 08:00] VITALS: BP 160/60; PULSE 98; TEMP 36.9; O2SAT 93; O2SAT 98
--- NOTE | 2022-09-07 08:29 | HMH.PHAINT1 ---
Pharmacy Intervention Comments: Home medication list verified using MAR from longterm.
[2022-09-07 08:36] LABS: Thyroid Stimulating Hormone 4.36 uIU/mL (0.465-4.68)
--- NOTE | 2022-09-07 09:53 | PC.NURSE ---
COURTESY TECH NOTE; ROUNDED ON PT 0830, PT DENIED NEED FOR RESTROOM, DRINK, AND NEED TO REPOSITION. CALL LIGHT WITHIN REACH, NO FURTHER REQUESTS AT THIS TIME ROSEANNA MADRIGAL
--- NOTE | 2022-09-07 10:38 | PC.NURSE ---
SRNA NOTE: pt walked from bed to chair with PT. pt tolerated activity with no complaints. pt currently seated in chair.
--- NOTE | 2022-09-07 10:51 | HMH.OTEV ---
OT Inpatient Evaluation Rehab OT IP Evaluation Start: 09/06/22 19:41 Freq: ONCE Status: Active Protocol: Document 09/07/22 10:41 JINA (Rec: 09/07/22 10:50 JINA [id number]) Rehab OT IP Assessment Subjective History Ms. reno is a 71-year-old female with recent prolonged hospitalization at after being transferred to from [facility] for ileus. Patient had developed worsening symptoms of abdominal distention, pain, elevated liver enzymes. Was transferred to and found to have portal vein thrombosis. Subsequently had exploratory laparotomy after a week of admission diagnosing ischemic bowel with perforation. 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 Was recently discharged 4 to 5 days ago to [facility] for rehab due to her weakness from prolonged hospitalization. She presented today to the ER from [facility] via EMS by her own doing. She called EMS because she did not feel they were managing her well with addressing her pain and general care. She refuses to go back to the [facility] at this time. is with her and states he does not have the ability to care for her at home given her weakness and the need for full assistance. Work-up in the ER positive for UTI. ER requested admission for treatment of UTI and assistance with further placement. On arrival to the floor, patient appears stable. States she checked herself out because of suboptimal care at that institution. She
--- NOTE | 2022-09-07 12:20 | EXP.DC.SUM ---
General Admission date:: 09/06/22 Discharge date: 09/07/22 HPI HPI HPI: Ms. reno is a 71-year-old female with recent prolonged hospitalization at after being transferred to from [facility] for ileus. Patient had developed worsening symptoms of abdominal distention, pain, elevated liver enzymes. Was transferred to and found to have portal vein thrombosis. Subsequently had exploratory laparotomy after a week of admission diagnosing ischemic bowel with perforation. 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 Was recently discharged 4 to 5 days ago to [facility] for rehab due to her weakness from prolonged hospitalization. She presented today to the ER from [facility] via EMS by her own doing. She called EMS because she did not feel they were managing her well with addressing her pain and general care. She refuses to go back to the [facility] at this time. is with her and states he does not have the ability to care for her at home given her weakness and the need for full assistance. Work-up in the ER positive for UTI. ER requested admission for treatment of UTI and assistance with further placement. On arrival to the floor, patient appears stable. States she checked herself out because of suboptimal care at that institution. She complains of pain though appears comfortable while she is eating her dinner.? She denies any fevers, vomiting, or diarrhea. Stable on room air Hospital Course Hospital Course Hospital Course: 71-year-old female with protracted course over the past month due to ileus followed by portal vein thrombosis, ischemic bowel, subtotal colectomy.? Recently admitted to [facility] for [facility]hab and PT.? Checked herself out because she did not feel her pain is being managed appropriately nor comfortable with the care.? Found to have UTI on admission.? Stable this morning for discharge to SNF for therapy. Problems addressed as follows: UTI -Found to have leukocytosis and abnormal UA positive for leukesterase, negative for nitrite, positive for bacteria. Started empirically on ceftriaxone 1 g daily. Urine culture growing greater than 100,000 CFU's gram-negative rods. Transition to cefdinir to complete course. Recent abdominal surgery, status post colectomy IBS -Stoma healthy.? Making stool. Complains of abdominal pain Chronic pain/opiate therapy -Discussed with patient that we would continue her home opiate therapy but we would not increase opiates.? Added Tylenol for synergy.? Continue oxycodone 10/325 every 6 hours as needed for pain. Would benefit from de-escalating opiate therapy over the coming weeks to months. Resume home gabapentin at discharge. Continue methocarbamol 1000 mg 4 times a day. Recommend considering Bentyl for IBS pain Hypertension Hyperlipidemia -After verification, patient not on statin. Holding at this time. Continue home losartan 25 mg daily. i Hypothyroid -Continue levothyroxine 25 mcg daily, TSH 4.36 on admission. Needs repeat labs in 6 weeks Anemia - Transfusion threshold of 7.Hemoglobin 7.6 on admission. 8.0 this morning. Also has thrombocytosis, likely reactive to her anemia. No overt signs of blood loss. Medically stable for skilled rehab. Recommend repeat labs in 1 week to monitor CBC, CMP. Patient worried about her pain control regimen. Was scheduled to have taper begin at her previous [facility]. Will defer further management to excepting physician. Spent 40 minutes in discharge counseling and direct care with patient. Controlled scripts and antibiotics sent to [facility] electronically Exam Data for Last 24 hours Vital signs and Labs for Last 24 Hours: Temp Pulse Resp BP Pulse Ox 98.4 F 98 H 19 160/60 H 98 09/07/22 08:00 09/07/22 08:00 09/07/22 04:00 09/07/22 08:00 09/07/22 08:00 Laboratory Results - last 24 hr 09/06/22 10:45: Total Counted 100, Neutro
--- NOTE | 2022-09-07 12:28 | HMH.PTEV ---
Physical Therapy Evaluation Rehab PT IP Evaluation Start: 09/06/22 19:41 Freq: ONCE Status: Active Protocol: Document 09/07/22 09:35 PHORCHATO (Rec: 09/07/22 12:28 PHORNE [id number]) Subjective/History History History 71 yowf adm to [facility] with UTI. She has hx of TSA, and recent colectomy with ileostomy and she was at subacute rehab facility prior to this admission. She lives with her , is generally independent with all mobility without AD, and 1-2 steps to enter the home. Subjective Subjective She c/o pain and received oral pain medication prior to treatment. Rehab PT IP Eval Objective Appearance Patient Behavior Appropriate Patient Orientation Person,Place,Time Difficulty following instructions none Speech Pattern Clear Ambulation Patient Able to Ambulate No Balance Ability to Arise Able, uses arms to help Sitting Balance Steady, safe Standing Balance Steady, wide stance Dynamic Sitting Balance Ability Good Dynamic Standing Balance Ability Fair Transfers Bed Transfer Ability Minimal x 2 (25% assist) Chair Transfer Ability Minimal x 2 (25% assist) Sit to Stand Bed Transfer Ability Minimal x 2 (25% assist) Sit to Stand Chair Transfer Ability Minimal x 2 (25% assist) ROM All Extremities PT ROM Status WFL MMT All Extremities PT MMT WFL Rehab PT IP prob,goals,plan Problems Date of Evaluation: 09/07/22 PT IP Problems Bed Mobility,Transfers,Gait Rehab Potential Rehab Potential Good Plan PT Intervention Plan Bed Mobility,Transfers,Gait, Therapeutic Exercise PT Plan Frequency Daily Duration LOS Discharge Goals Bed Transfer Ability Minimal x 1 (25% assist) Sit to Stand Chair Transfer Ability Minimal x 1 (25% assist) Ambulation Assistive Device Rolling Walker Ambulation Distance (feet) 5 Discharge Plan PT Discharge Plan Pt is currently most appropriate for rehab placement once medically stable for d/c. G -code Required No Eval Complexity Eval Charge Codes 72479 - High Complexity PHYSICIAN CERTIFICATION: I certify the specified therapy services for
--- NOTE | 2022-09-07 13:22 | HMH.PHAINT1 ---
Pharmacy Intervention Comments: Discharge medication counseling completed. Patient was starting the following meds: -cefdinir: twice daily. Told of possible side effects of stomach upset/diarrhea and said taking with food may prevent this. -oxy/APAP 10-325: told patient to take only as needed every 6 hours for pain. Said side effect of drowsiness was most common. -Eliquis: patient said she had taken Eliquis before. Reminded her to watch for signs of bleeding (bruising easily, blood in the stool, etc.) and to let her provider know if this occurred. -duloxetine: patient said she had also taken this in the past The patient was also told to take her gabapentin 600 three times daily rather than 4 times daily. The patient said that she was not taking the gabapentin currently. She verbalized understanding about her new meds and had no questions.
--- NOTE | 2022-09-07 13:26 | PC.NURSE ---
Md. Francis, okay to give dose of pain medication early for ride to [facility].
--- NOTE | 2022-09-07 13:34 | PC.NURSE ---
Report called to Jazmin Pond LPN at [facility].
--- NOTE | 2022-09-08 14:49 | CARE MANAGER ---
Unable to reach anyone on skilled floor at [facility] to discuss recent discharge.
== END 2022-09-07 15:05 ==
LOC: ER 16:05 → 2ND 17:00
PROVIDERS: Admitting Provider Internal Medicine Adolescent Medicine; Emergency Provider Emergency Medicine; PCP Emergency Medicine; Visit Provider Internal Medicine Adolescent Medicine
DX: E03.9 Hypothyroidism, unspecified; Z79.891 Long term (current) use of opiate analgesic; Z90.49 Acquired absence of other specified parts of digestive tract; E78.5 Hyperlipidemia, unspecified; I10 Essential (primary) hypertension; Z79.899 Other long term (current) drug therapy; G89.29 Other chronic pain; D64.9 Anemia, unspecified; N39.0 Urinary tract infection, site not specified; Z93.2 Ileostomy status
CPT/HCPCS: G0378; 36415; 80053; 81001; 83605; 83690; 83735; 84443; 85007; 85025; 87086; 87088; 87186; 87635; 87636; 93005; 94640; 97163; 97165; 99285; C9803; J0696; J3475; U0003; U0005

== ENCOUNTER → 2022-10-03 12:04 | Outpatient (CLI) | payer MEDICARE, OTHER, SELFPAY | LOC: LAB 12:06 → LAB.DROPOF 13:19 | PROVIDERS: PCP Emergency Medicine; Visit Provider Emergency Medicine | DX: R53.83 Other fatigue (principal); B96.29 Other Escherichia coli [E. coli] as the cause of diseases classified elsewhere | CPT/HCPCS: 87086; 87088; 87186 ==

== ENCOUNTER 2022-11-27 17:07 | Emergency (ER) | payer MEDICARE, OTHER, SELFPAY ==
--- NOTE | 2022-11-27 17:35 | EXP.UTC ---
Discharge Plan Disposition Patient Disposition: Home, Self-Care Condition: Good Prescriptions Prescriptions: New amoxicillin [amoxicillin] 500 mg tablet 500 mg PO TID 10 Days Qty: 30 0RF methylprednisolone 4 mg Tablets,Dose Pack 4 mg PO DIRECTED Qty: 21 0RF No Action potassium chloride 20 mEq tablet,ER particles/crystals PO BID acyclovir 400 mg tablet 400 mg PO BID atorvastatin 20 mg tablet 20 mg PO diphenoxylate-atropine [Lomotil] 2.5-0.025 mg tablet 1 tab PO TID PRN (Reason: diarrhea) Qty: 100 0RF oxycodone 10 mg tablet 10 mg PO .COMPLEX Qty: 150 0RF Rx Instructions: 10 mg orally 5 times daily; Eliquis 5 mg tablet 5 mg PO BID 90 Days Qty: 180 2RF estradiol 0.01 % (0.1 mg/gram) cream See Rx Instructions .ROUTE .COMPLEX Qty: 42.5 0RF Dose Instruction: APPLY A PEA-SIZED AMOUNT TO VAGINAL OPENING EVERY SUNDAY, SUNDAY, AND SUNDAY EVENING. Rx Instructions: APPLY A PEA-SIZED AMOUNT TO VAGINAL OPENING EVERY SUNDAY, SUNDAY, AND SUNDAY EVENING. losartan 50 mg tablet See Rx Instructions .ROUTE .COMPLEX Qty: 90 0RF Dose Instruction: TAKE 1 TABLET BY MOUTH ONCE DAILY Rx Instructions: TAKE 1 TABLET BY MOUTH ONCE DAILY levothyroxine 25 mcg tablet 25 mcg PO DAILY nystatin 100,000 unit/gram Cream 1 applic TOPICAL BID Rx Instructions: Apply to coccyx topically 2 times a day for rash/blanchable redness ondansetron 4 mg Tablet,Disintegrating 4 mg PO Q6HP PRN (Reason: Nausea And Vomiting) fluticasone propionate 50 mcg/actuation [place],Suspension 2 spray INTRANASAL BID PRN (Reason: Allergies) Rx Instructions: in both nostrils duloxetine 30 mg Capsule,Delayed Release(Dr/Ec) 60 mg PO BID Qty: 0 0RF Referrals Follow up/Referrals: Chandra Leahy MD [Primary Care Provider] - See instructions Activity Restrictions/Add. Instructions Additional Instructions/Restrictions: Drink plenty of fluids. Take tylenol or ibuprofen for pain or fever. Take the medications as directed. Follow up with your regular doctor. GO TO THE ER FOR ANY WORSENING SYMPTOMS Clinical Impressions Clinical Impression: Otitis media Instructions Patient Instructions: Middle Ear Infection, Methylprednisolone, Amoxicillin Discharge ED Provider: Zoran Baum [facility] HPI General Stated complaint: ear pain in both Time Seen by Provider: 11/27/22 17:17 History of Present Illness Provider Complaint: She states that for the past 2 days she has had bilateral ear pain and pressure. She has had sinus congestion also. Related Data Home Medications Medication Instructions Recorded Confirmed levothyroxine 25 mcg tablet 25 mcg PO DAILY Thyroid 08/02/22 11/21/22 fluticasone propionate 50 2 spray intranasal BID PRN 09/07/22 11/21/22 mcg/actuation nasal Allergies spray,suspension nystatin 100,000 unit/gram topical 1 applic topical BID Rash 09/07/22 11/21/22 cream ondansetron 4 mg disintegrating 4 mg PO Q6HP PRN Nausea And 09/07/22 11/21/22 tablet Vomiting acyclovir 400 mg tablet 400 mg PO BID 11/21/22 11/21/22 atorvastatin 20 mg tablet 20 mg PO 11/21/22 11/21/22 potassium chloride 20 mEq meq PO BID 11/21/22 11/21/22 tablet,extended release(part/cryst) Previous Rx's Medication Instructions Recorded duloxetine 30 mg capsule,delayed 60 mg PO BID #0 caps 09/07/22 release apixaban 5 mg tablet (Eliquis) 5 mg PO BID 90 days #180 tabs 10/09/22 estradiol 0.01% (0.1 mg/gram) See Rx Instructions .Route 10/13/22 vaginal cream .COMPLEX #42.5 grams diphenoxylate-atropine 2.5 1 tab PO TID PRN diarrhea #100 tabs 11/21/22 mg-0.025 mg tablet (Lomotil) losartan 50 mg tablet See Rx Instructions .Route 11/21/22 .COMPLEX #90 tabs oxycodone 10 mg tablet 10 mg PO .COMPLEX #150 tabs 11/21/22 amoxicillin 500 mg tablet 500 mg PO TID 10 days #30 tabs 11/27/22 methylprednisolone 4 mg tablets in 4 mg PO DIRE
[2022-11-27 17:40] VITALS: BP 132/71; PULSE 89; RESP 19; TEMP 36.6; O2SAT 99; BMI 29.6
[2022-11-27 17:55] VITALS: BP 132/71; PULSE 89; RESP 19; TEMP 36.6; O2SAT 99
== END 2022-11-27 18:00 | disposition home or self-care (01) ==
PROVIDERS: Emergency Provider Nurse Practitioner Family; PCP Emergency Medicine
DX: H66.93 Otitis media, unspecified, bilateral (principal); I10 Essential (primary) hypertension; E03.9 Hypothyroidism, unspecified; E78.5 Hyperlipidemia, unspecified
CPT/HCPCS: 99212; 99214; G0463

== ENCOUNTER → 2023-01-17 23:13 | Outpatient (CLI) | payer MEDICARE, OTHER, SELFPAY ==
[2023-01-17 20:55] LABS: Barbiturates Screen,Urine Negative ng/ml (<200)
[2023-01-17 20:56] LABS: Amphetamine/Metha Screen,Urine Negative ng/ml (<1000)
[2023-01-17 20:57] LABS: Benzodiazepines Screen,Urine Negative ng/ml (<200); Cannabinoid Screen,Urine Negative ng/ml (<50)
[2023-01-17 20:58] LABS: Cocaine Screen,Urine Negative ng/ml (<300); Methadone Screen,Urine Negative ng/ml (<300)
[2023-01-17 20:59] LABS: Phencyclidine Screen,Urine Negative ng/ml (<25)
[2023-01-17 21:00] LABS: Opiate Screen,Urine Positive ng/ml (<300)
== END ==
PROVIDERS: PCP Emergency Medicine; Visit Provider Emergency Medicine
DX: N30.90 Cystitis, unspecified without hematuria (principal); G89.4 Chronic pain syndrome; B96.29 Other Escherichia coli [E. coli] as the cause of diseases classified elsewhere
CPT/HCPCS: 80305; 87086

== ENCOUNTER → 2023-02-14 08:47 | Outpatient (CLI) | payer MEDICARE, OTHER, SELFPAY | PROVIDERS: PCP Emergency Medicine; Visit Provider Emergency Medicine | DX: N30.90 Cystitis, unspecified without hematuria (principal); B96.29 Other Escherichia coli [E. coli] as the cause of diseases classified elsewhere; B96.89 Other specified bacterial agents as the cause of diseases classified elsewhere | CPT/HCPCS: 87086 ==

== ENCOUNTER → 2023-02-23 13:08 | Outpatient (CLI) | payer MEDICARE, OTHER, SELFPAY ==
--- NOTE | 2023-02-23 13:12 | MM_ITS ---
PROCEDURE INFORMATION: Exam: MG Bilateral Screening 3D Mammography Exam date and time: 02/23/2023 1:15 PM Age: 72 years old Clinical indication: Screening examination TECHNIQUE: Imaging protocol: Bilateral Screening tomosynthesis and 2D mammography including computer-aided detection (CAD) when performed. COMPARISON: 1. MG MM DIG SCREENING MAMM BI W/CAD 08/23/2021 8:24 AM 2. MG DMSB DIG MAMM-SCREEN MERRY 01/19/2016 4:01 PM FINDINGS: MAMMOGRAPHY: Breast composition: The breasts are heterogeneously dense, which may obscure small masses. Mass: None. Architectural distortion: None. Calcifications: No suspicious calcifications. Asymmetric density: None. Skin thickening: None. Axillary adenopathy: None. IMPRESSION: No mammographic evidence of malignancy. Annual screening is recommended unless otherwise clinically indicated. ASSESSMENT: BI-RADS Category 1: Negative
== END ==
PROVIDERS: PCP Emergency Medicine; Visit Provider Emergency Medicine
DX: Z12.31 Encounter for screening mammogram for malignant neoplasm of breast (principal)
CPT/HCPCS: 77063; 77067

== ENCOUNTER → 2023-03-08 09:18 | Outpatient (CLI) | payer MEDICARE, OTHER, SELFPAY ==
[2023-03-08 19:49] LABS: Basophils # 0.1 K/mm3 (0-0.2); Basophils % 0.5 % (0.1-2.0); Eosinophils # 0.2 K/mm3 (0.0-0.4); Eosinophils % 2.6 % (0.1-12.0); Hemoglobin 11.6 g/dL (12.2-16.2); Lymphocytes # 2.9 K/mm3 (0.7-4.5); Lymphocytes % 32.4 % (10-50); Mean Corpuscular HGB Conc 30.5 g/dL (31.8-35.4); Mean Corpuscular Hemoglobin 27.3 pg (27.0-31.2); Mean Corpuscular Volume 89.4 fl (81-99); Mean Platelet Volume 8.7 fl (7.4-10.4); Monocytes # 0.5 K/mm3 (0.1-1.0); Monocytes % 5.1 % (1.7-9.3); Neutrophils # 5.2 K/mm3 (1.8-7.8); Neutrophils % 59.3 % (37.0-80.0); Platelet Count 408 K/mm3 (142-424); Red Blood Count 4.26 M/mm3 (4.20-5.40); Red Cell Distribution Width 16.6 % (11.5-17.5); White Blood Count 8.8 K/mm3 (4.8-10.8)
[2023-03-08 20:11] LABS: Alanine Aminotransferase 30 U/L (12-78); Albumin Level 4.1 g/dl (3.5-5.0); Albumin/Globulin Ratio 1.6 (1.1-1.8); Alkaline Phosphatase 98 U/L (38-126); Anion Gap 12.7 mEq/L (5-15); Aspartate Amino Transferase 34 U/L (14-36); Bilirubin,Total 0.4 mg/dl (0.2-1.3); Blood Urea Nitrogen 15 mg/dl (7-17); Calcium 8.8 mg/dl (8.4-10.2); Carbon Dioxide 23 mmol/L (22.0-30.0); Chloride 105 mmol/L (98-107); Estimated Glomerular Filt Rate 55 ml/min (>60); GFR (African American) 66 ML/MIN (>60); Globulin 2.6 g/dL (1.3-3.2); Glucose 102 mg/dl (74-100); Potassium 4.7 mmoL/L (3.5-5.1); Sodium 136 mmol/L (136-145); Total Protein,Serum 6.7 g/dl (6.3-8.2)
[2023-03-08 20:23] LABS: 25-OH Vitamin D, Total 20.6 ng/mL (30-100)
[2023-03-08 20:56] LABS: Microalbumin/Creatinine Ratio 9.1
[2023-03-08 20:59] LABS: Vitamin B12 294 pg/mL (239-931)
[2023-03-08 21:01] LABS: Creatinine,Urine Random 112 mg/dL (Not Estab.)
== END ==
PROVIDERS: PCP Internal Medicine; Visit Provider Internal Medicine
DX: E03.9 Hypothyroidism, unspecified (principal); E78.5 Hyperlipidemia, unspecified; N30.90 Cystitis, unspecified without hematuria; E55.9 Vitamin D deficiency, unspecified; E11.9 Type 2 diabetes mellitus without complications; B96.29 Other Escherichia coli [E. coli] as the cause of diseases classified elsewhere; B96.89 Other specified bacterial agents as the cause of diseases classified elsewhere
CPT/HCPCS: 80053; 82043; 82306; 82570; 82607; 85025; 87086

== ENCOUNTER 2023-07-21 22:57 | Emergency (ER) | payer MEDICARE, OTHER, SELFPAY ==
[2023-07-21 22:57] VITALS: BP 150/66; PULSE 114; RESP 16; TEMP 36.3; O2SAT 97; BMI 25.8
[2023-07-21 23:30] VITALS: BP 134/69; PULSE 112; RESP 11; O2SAT 96
--- NOTE | 2023-07-21 23:46 | CT_ITS ---
PROCEDURE INFORMATION: Exam: CT Abdomen And Pelvis With Contrast Exam date and time: 07/22/2023 12:34 AM Age: 72 years old Clinical indication: Abdominal pain; Prior surgery; Surgery date: <1 month; Surgery type: Recent ileostomy w reversal c/b abscesses; Additional info: Recent ileostomy w reversal c/b abscesses, abd boris TECHNIQUE: Imaging protocol: Computed tomography of the abdomen and pelvis with contrast. 3D rendering (Not supervised by radiologist): MIP and/or 3D reconstructed images were created by the technologist. Radiation optimization: All CT scans at this facility use at least one of these dose optimization techniques: automated exposure control; mA and/or kV adjustment per patient size (includes targeted exams where dose is matched to clinical indication); or iterative reconstruction. Contrast material: ISOVUE; Contrast volume: 70 ml; Contrast route: IV; COMPARISON: CT ABDOMEN PELVIS W CON 08/01/2022 8:01 PM FINDINGS: Tubes, catheters and devices: Postsurgical changes in bilateral hip joints with arthroplasty device in place producing streak artifact limiting evaluation. Liver: Fatty liver and hepatomegaly. There is a 1 cm simple cyst right lobe liver requiring no further follow-up. Gallbladder and bile ducts: Normal. No calcified stones. No ductal dilation. Pancreas: Normal. No ductal dilation. Spleen: Normal. No splenomegaly. Adrenal glands: Normal. No mass. Kidneys and ureters: Normal. No hydronephrosis. Stomach and bowel: Gastric wall thickening enhancement and air-fluid levels in the stomach. Air-fluid levels within the small bowel loops which are moderately distended findings concerning for partial small bowel obstruction. Appendix: No evidence of appendicitis. Intraperitoneal space: Possible 2.8 cm abscess in the right lower quadrant. A 2nd 3.3 cm fluid collection in the anterior midline abdominal the region. No free air. Vasculature: Unremarkable. No abdominal aortic aneurysm. Lymph nodes: Unremarkable. No enlarged lymph nodes. Urinary bladder: Unremarkable as visualized. Reproductive: Unremarkable as visualized. Bones/joints: Unremarkable. No acute fracture. Soft tissues: Unremarkable. IMPRESSION: 1. Partial small bowel obstruction. 2. No acute renal abnormality. 3. Gallbladder normal. 4.Possible 2.8 cm abscess in the right lower quadrant. A 2nd 3.3 cm fluid collection in the anterior midline abdominal the region.
--- NOTE | 2023-07-21 23:46 | CT_ITS ---
PROCEDURE INFORMATION: Exam: CT Head Without Contrast Exam date and time: 07/22/2023 12:24 AM Age: 72 years old Clinical indication: Altered mental status/memory loss; Additional info: AMS, recent prolonged hospitalizations, on eliquis TECHNIQUE: Imaging protocol: Computed tomography of the head without contrast. Radiation optimization: All CT scans at this facility use at least one of these dose optimization techniques: automated exposure control; mA and/or kV adjustment per patient size (includes targeted exams where dose is matched to clinical indication); or iterative reconstruction. COMPARISON: CT HEAD/BRAIN WO CON 12/31/2018 4:57 PM FINDINGS: Brain: No evidence for intracranial hemorrhage, mass lesions or acute stroke. Intracranial vascular calcifications. Cerebral ventricles: No ventriculomegaly. Pituitary gland and sella: Negative Paranasal sinuses: Mild mucosal thickening left maxillary sinus. Mastoid air cells: Visualized mastoid air cells are well aerated. Orbital cavities: Negative. Parotid and submandibular glands: Negative Bones/joints: Unremarkable. No acute fracture. Soft tissues: Unremarkable. Vasculature: Negative. IMPRESSION: 1. No evidence for intracranial hemorrhage, mass lesions or acute stroke. 2. Intracranial vascular calcifications. 3. Mild mucosal thickening left maxillary sinus.
--- NOTE | 2023-07-21 23:46 | CT_ITS ---
PROCEDURE INFORMATION: Exam: CTA Chest With Contrast Exam date and time: 07/22/2023 12:34 AM Age: 72 years old Clinical indication: Shortness of breath; Additional info: Recent ileostomy w reversal, SOA, tachycardic TECHNIQUE: Imaging protocol: Computed tomographic angiography of the chest with contrast. Exam focused on the arteries. 3D rendering (Not supervised by radiologist): MIP and/or 3D reconstructed images were created by the technologist. Radiation optimization: All CT scans at this facility use at least one of these dose optimization techniques: automated exposure control; mA and/or kV adjustment per patient size (includes targeted exams where dose is matched to clinical indication); or iterative reconstruction. Contrast material: ISOUVE 370; Contrast volume: 70 ml; Contrast route: INTRAVENOUS (IV); COMPARISON: CR XR CHEST PORTABLE 08/01/2022 8:07 PM FINDINGS: Pulmonary arteries: Normal. No pulmonary emboli. Aorta: Unremarkable. No aortic aneurysm. No aortic dissection. Lungs: Unremarkable. No consolidation. No masses. Pleural spaces: Unremarkable. No pneumothorax. No pleural effusion. Heart: Unremarkable. No cardiomegaly. No pericardial effusion. Lymph nodes: Unremarkable. No enlarged lymph nodes. Bones/joints: Unremarkable. No acute fracture. Soft tissues: Unremarkable. IMPRESSION: No acute findings.
--- NOTE | 2023-07-21 23:57 | PC.NURSE ---
Attempted to in/out cath pt, assisted by Guilherme PALMER, no urine output, purewick cath placed to LWS.
[2023-07-22] VITALS (7 sets, daily range): BP systolic 113–151; BP diastolic 50–70; PULSE 102–118; RESP 12–24; TEMP 36.6; O2SAT 95–100
[2023-07-22] MEDS: LACTATED RINGERS 1090 ML IV
[2023-07-22 00:06] LABS: Basophils # 0.1 K/mm3 (0-0.2); Basophils % 0.6 % (0.1-2.0); Eosinophils # 0.1 K/mm3 (0.0-0.4); Eosinophils % 0.3 % (0.1-12.0); Hemoglobin 10.8 g/dL (12.2-16.2); Lymphocytes # 0.6 K/mm3 (0.7-4.5); Lymphocytes % 3.9 % (10-50); Mean Corpuscular HGB Conc 31.8 g/dL (31.8-35.4); Mean Corpuscular Hemoglobin 25.6 pg (27.0-31.2); Mean Corpuscular Volume 80.6 fl (81-99); Mean Platelet Volume 8.5 fl (7.4-10.4); Monocytes # 0.4 K/mm3 (0.1-1.0); Monocytes % 2.6 % (1.7-9.3); Neutrophils # 15.5 K/mm3 (1.8-7.8); Neutrophils % 92.6 % (37.0-80.0); Platelet Count 540 K/mm3 (142-424); Red Blood Count 4.22 M/mm3 (4.20-5.40); Red Cell Distribution Width 17.8 % (11.5-17.5); White Blood Count 16.8 K/mm3 (4.8-10.8)
[2023-07-22 00:07] LABS: MANUAL DIFFERENTIAL MANUAL DIFFERENTIAL (MANUAL DIFF)
[2023-07-22 00:10] LABS: Alanine Aminotransferase 47 U/L (12-78); Albumin Level 3.7 g/dl (3.5-5.0); Albumin/Globulin Ratio 0.9 (1.1-1.8); Alkaline Phosphatase 312 U/L (38-126); Anion Gap 15.4 mEq/L (5-15); Aspartate Amino Transferase 71 U/L (14-36); Bilirubin,Total 1.3 mg/dl (0.2-1.3); Blood Urea Nitrogen 26 mg/dl (7-17); Calcium 9.9 mg/dl (8.4-10.2); Carbon Dioxide 30 mmol/L (22.0-30.0); Chloride 94 mmol/L (98-107); Creatinine Clearance Estimated 59 mL/min (50-200); Estimated Glomerular Filt Rate 55 ml/min (>60); GFR (African American) 66 ML/MIN (>60); Globulin 4.2 g/dL (1.3-3.2); Glucose 117 mg/dl (74-100); Potassium 3.4 mmoL/L (3.5-5.1); Prothrombin Time 10.8 seconds (10.1-12.5); Sodium 136 mmol/L (136-145); Total Protein,Serum 7.9 g/dl (6.3-8.2)
[2023-07-22 00:13] LABS: Activated Partial Thrombo Time 28.1 seconds (22.8-30.6)
[2023-07-22 00:21] LABS: Troponin I 0.04 ng/ml (0.00-0.034)
[2023-07-22 00:24] LABS: Hypochromasia 1+; Lymphocytes % 5 % (10-50); Monocytes % 2 % (2-9); Neutrophils % 92 % (42-76); Platelet Estimate Moderate Increase; Total Cells Counted 100
[2023-07-22] MEDS: VANCOMYCIN HCL 1,000 MG in 0.9 % SODIUM CHLORIDE 250 ML 125 MG IV (00:24)
[2023-07-22 00:26] LABS: Procalcitonin 4.67 ng/mL (0.0-2.0)
--- NOTE | 2023-07-22 00:28 | PC.NURSE ---
Pt in CT
--- NOTE | 2023-07-22 00:38 | HMH.EDGENADL ---
Discharge Plan Disposition Patient Disposition: Xfer Short-Term Hosp Condition: Fair Chief Complaint: Shortness of Breath/Dyspnea Prescriptions Prescriptions: No Action clonidine HCl 0.1 mg tablet 0.1 mg PO DAILY PRN (Reason: Anxiety) cholecalciferol (vitamin D3) 62.5 mcg (2,500 unit) capsule 62.5 mcg PO DAILY 90 Days Qty: 90 2RF fluticasone propion-salmeterol [Advair Diskus] 250-50 mcg/dose blister with device 250 inh inhalation ONCE potassium chloride 20 mEq tablet,ER particles/crystals 20 meq PO BID amlodipine 5 mg tablet 5 mg PO HS aspirin [Adult Low Dose Aspirin] 81 mg tablet,delayed release (DR/EC) 81 mg PO DAILY Eliquis 5 mg tablet 5 mg PO BID 90 Days Qty: 180 2RF furosemide [Lasix] 40 mg tablet 40 mg PO DAILY PRN (Reason: swelling) Qty: 30 0RF acyclovir 400 mg tablet See Rx Instructions .ROUTE .COMPLEX Qty: 60 3RF Dose Instruction: TAKE 1 TABLET BY MOUTH 2 (TWO) TIMES A DAY. Rx Instructions: TAKE 1 TABLET BY MOUTH 2 (TWO) TIMES A DAY. levothyroxine 25 mcg tablet See Rx Instructions .ROUTE .COMPLEX Qty: 90 1RF Dose Instruction: TAKE 1 TABLET BY MOUTH DAILY FOR HYPOTHYROIDISM Rx Instructions: TAKE 1 TABLET BY MOUTH DAILY FOR HYPOTHYROIDISM atorvastatin 20 mg tablet See Rx Instructions .ROUTE .COMPLEX Qty: 90 0RF Dose Instruction: TAKE 1 TABLET BY MOUTH DAILY. Rx Instructions: TAKE 1 TABLET BY MOUTH DAILY. duloxetine 30 mg Capsule,Delayed Release(Dr/Ec) 60 mg PO BID Qty: 0 0RF losartan 50 mg tablet 75 mg PO DAILY oxycodone 10 mg tablet 5 mg PO .6 TIMES A DAY PRN (Reason: pain) Referrals Follow up/Referrals: Timothy Granda DO [Primary Care Provider] - See instructions Clinical Impressions Clinical Impression: Postoperative abscess, Obstruction of small intestine after surgical procedure Discharge ED Provider: Silvia Ash Adult HPI General Chief complaint: Shortness of Breath/Dyspnea Stated complaint: SOA Time Seen by Provider: 07/21/23 23:28 Mode of Arrival: EMS Source of Information: Spouse and EMS Limitations: Altered Mental Status Description of Symptoms (Recalled from ER Triage Doc. by RN): Pt arrives via EMS from home with concerns of AMS and difficulty breathing per . He states she has been in and out of [facility] with complications after a colon resection on May 24. Pt was recently discharged (07/18) and sent home with oxycodone which the believes she may have taken too many of. Pt is alert to self at this time, denies any pain. at bedside, states her color does appear a bit more pale and her breathing is his concern.Pt O2 sat 97% at this time RR16. 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 History of Present Illness HPI narrative: Patient is a 72-year-old female with past medical history hypertension, hyperlipidemia, hypothyroidism, ischemic bowel disease, diverting ileostomy performed May 24 of this year and subsequent reanastomosis complicated by multiple abscesses requiring prolonged hospitalization to [facility] over the course of 3 weeks presenting with altered mental status and lethargy. Per history from she does not note any specific pain but he was worried about her breathing, states she seemed more lethargic today described as sleeping more and this evening her breathing seemed to have increased work prompting him to call EMS after he asked the patient if she wanted him to call. She had said yes. He does note that she has been home for the past couple of days from and was discharged with oxycodone prescription, she had a 22 initially and now has 11, he does not know if this could be contributing to her altered mental status, has not seen her take too much at once himself. She is on TPN and IV Zosyn, she did get these today and her Zosyn was running when he called EMS, these are medications she was discharged with to be run at home through her PICC line. He denies any specific fevers, no nausea or vomiting. Related Data Home Medications Medication Instructions Recorded Confirmed potassium chloride 20 mEq 20 meq PO BID 11/21/22 07/22/23 tablet,extended release(part/cryst) fluticasone 250 mcg-salmeterol 50 250 inh inhalation ONCE 03/08/23 07/22/23 mcg/dose blistr powdr for inhalation (Advair Diskus) amlodipine 5 mg tablet 5 mg PO HS hypertension 04/05/23 07/22/23 aspirin 81 mg tablet,delayed 81 mg PO DAILY 04/05/23 07/22/23 release (Adult Low Dose Aspirin) clonidine HCl 0.1 mg tablet 0.1 mg PO DAILY PRN Anxiety 04/05/23 07/22/23 losartan 50 mg tablet 75 mg PO DAILY 07/22/23 07/22/23 oxycodone 10 mg tablet 5 mg PO .6 TIMES A DAY PRN pain 07/22/23 07/22/23 Previous Rx's Medication Instructions Recorded duloxetine 30 mg capsule,delayed 60 mg (2 x 30 mg) PO BID #0 caps 09/07/22 release apixaban 5 mg tablet (Eliquis) 5 mg PO BID 90 days #180 tabs 10/09/22 furosemide 40 mg tablet (Lasix) 40 mg PO DAILY PRN swelling #30 04/09/23 tabs cholecalciferol (vitamin D3) 62.5 62.5 mcg PO DAILY 90 days #90 caps 04/10/23 mcg (2,500 unit) capsule acyclovir 400 mg tablet See Rx Instructions .Route 05/22/23 .COMPLEX #60 tabs atorvastatin 20 mg tablet See Rx Instructions .Route 06/12/23 .COMPLEX #90 tabs levothyroxine 25 mcg tablet See Rx Instructions .Route 06/12/23 .COMPLEX #90 tabs Allergies Allergy/AdvReac Type Severity Reaction Status Date / Time ciprofloxacin [From Cipro] Allergy Intermediate Muscle Pain Verified 05/22/23 09:24 levofloxacin [From Levaquin] AdvReac Verified 05/22/23 09:24 [facility] Disclaimer: The information contained in this section may have been updated after the patient was seen, as this information can be updated by other users. Medical History Abdominal pain Abnormal electrocardiogram [ECG] [EKG] TIP (acute kidney injury) C. difficile diarrhea Colostomy in place Elevated liver enzymes HLD (hyperlipidemia) Last cholesterol panel was done in July. This revealed a triglyceride of 102, cholesterol 142, LDL less than 30, and HDL 79. This is an excellent profile I see no need to get this again until perhaps next year. HTN (hypertension), benign Blood pressure today was 118/68. In the past this has been up systolically into the 150s and 160s. Patient is not checking her blood pressure at home and I have asked her to do that. She is to check her blood pressure at home with a arm blood pressure cuff on bare skin record this and bring it back to the clinic and we will evaluate. Will increase her losartan to 75 mg/day. Hypokalemia Hypokalemia due to loss of potassium Hypothyroidism Last TSH in August was normal. Will just follow for now. IBS (irritable bowel syndrome) Ileus Perforated sigmoid colon Surgical History H/O ileostomy History of arthroscopy of left shoulder History of total right hip replacement Family History Other Anemia Asthma Cancer Hyperlipidemia Social History Smoking Status: Never smoker second hand exposure: No alcohol intake: never current occupational status: retired Travel in the last 8 weeks: None household members: spouse housing: house current occupational exposures/hazards: No caffeine: No ROS Obtained: Yes Systems reviewed as appropriate & no additional complaints except as documented Physical Exam General General appearance: in no apparent distress and other (At times sleeping but easily wakes and does respond to questions appropriately) Head Head exam: atraumatic and normocephalic Eye Eye exam: Present PERRL and EOMI ENT ENT exam: Present mucous membranes dry Chest Chest inspection: Present normal inspection and symmetric chest wall rise Respiratory Respiratory exam: Present normal lung sounds bilaterally; Absent respiratory distress Cardiovascular Cardiovascular exam: Present normal rhythm and tachycardia Abdominal Exam Abdominal exam: Present soft and other (Nondistended abdomen but tender throughout palpation to all regions, healed midline surgical scar) Extremities Exam Extremities exam: Present normal inspection and other (No pedal edema appreciated) Neurological Exam Neurological exam: Present alert and other (Oriented to person and has been in the room, does know that she is in this hospital but states it is 1993, strength equal bilateral upper and lower extremities, sensation equal bilateral upper and lower extremities, face is symmetric with equal smile, able to stick out tongue, raise eyebrows, close ) Medical Decision Making Medical Records Medical records reviewed: Yes I reviewed the patient's medical records. Beto Inquiry Pt receiving controlled substance: No Vital Signs: 07/21/23 22:57 07/21/23 23:30 07/22/23 00:00 Temperature 97.4 F L Temperature Source Oral Pulse Rate 112 H 114 H Pulse Rate [Left] 114 H Respiratory Rate 16 11 L 12 Blood Pressure 134/69 151/70 H Blood Pressure [Right Arm] 150/66 H Blood Pressure Mean Blood Pressure Mean [Right Arm] 94 Blood Pressure Source [Right Arm] Automatic Cuff Blood Pressure Position [Right Arm] Sitting 02 Sat by Pulse Oximetry 97 96 98 Oxygen Delivery Method Room Air 07/22/23 00:50 07/22/23 01:00 07/22/23 01:31 Temperature Temperature Source Pulse Rate 107 H 118 H Pulse Rate [Left] Respiratory Rate 16 13 24 Blood Pressure 129/61 134/61 113/50 L Blood Pressure [Right Arm] Blood Pressure Mean 83 Blood Pressure Mean [Right Arm] Blood Pressure Source [Right Arm] Blood Pressure Position [Right Arm] 02 Sat by Pulse Oximetry 100 97 Oxygen Delivery Method 07/22/23 02:00 07/22/23 02:30 Temperature Temperature Source Pulse Rate 111 H 110 H Pulse Rate [Left] Respiratory Rate 12 19 Blood Pressure 117/53 L 115/57 L Blood Pressure [Right Arm] Blood Pressure Mean Blood Pressure Mean [Right Arm] Blood Pressure Source [Right Arm] Blood Pressure Position [Right Arm] 02 Sat by Pulse Oximetry 95 97 Oxygen Delivery Method Lab Data Lab results reviewed: Yes I reviewed the patient's lab results. Lab Results 07/21/23 23:22: WBC 16.8 H, RBC 4.22, Hgb 10.8 L, Hct 34.0 L, MCV 80.6 L, MCH 25.6 L, MCHC 31.8, RDW 17.8 H, Plt Count 540 H, MPV 8.5, Neut % (Auto) 92.6 H, Lymph % (Auto) 3.9 L, Mcmullen % (Auto) 2.6, Eos % (Auto) 0.3, Baso % (Auto) 0.6, Neut # (Auto) 15.5 H, Lymph # (Auto) 0.6 L, Mcmullen # (Auto) 0.4, Eos # (Auto) 0.1, Baso # (Auto) 0.1, Total Counted 100, Neutrophils % (Manual) 92 H, Band Neutrophils % 1.0, Lymphocytes % (Manual) 5 L, Monocytes % (Manual) 2, Platelet Estimate Moderate increase, Hypochromasia 1+, PT 10.8, INR 1.00, APTT 28.1, Sodium 136, Potassium 3.4 L, Chloride 94 L, Carbon Dioxide 30, Anion Gap 15.4 H, BUN 26 H, Creatinine 1.00, Estimated Creat Clear 59, Estimated GFR 55 L, Est GFR ( Amer) 66, Glucose 117 H, Calcium 9.9, Total Bilirubin 1.3, AST 71 H, ALT 47, Alkaline Phosphatase 312 H, Troponin I 0.04 H, Total Protein 7.9, Albumin 3.7, Globulin 4.2 H, Albumin/Globulin Ratio 0.9 L, Procalcitonin 4.67 H 07/22/23 00:21: Lactate 2.8 H 07/22/23 01:25: Urine Color Yellow, Urine Appearance Clear, Urine pH 6.0, Ur Specific [place] 1.015, Urine Protein 1+, Urine Glucose (UA) Negative, Urine Ketones Negative, Urine Blood Trace-i, Urine Nitrate Negative, Urine Bilirubin Negative, Urine Urobilinogen 0.2, Ur Leukocyte Esterase Negative, Urine RBC Occasional, Urine WBC 5-10, Ur Squamous Epith Cells 5-10, Urine Bacteria 1+ 07/21/23 23:22 07/21/23 23:22 Orders (Tests/Meds): ED MEDICATIONS Generic Name Dose Route Start Last Admin Trade Name Freq PRN Reason Stop Dose Admin Vancomycin HCl 1,000 mg/ 250 mls @ 125 mls/hr 07/21/23 23:45 07/22/23 00:24 Sodium Chloride IV 07/31/23 23:44 125 mls/hr Q12H RACHEL Administration Sodium Chloride 10 ml 07/22/23 00:48 07/22/23 00:49 Sodium Chloride 0.9% 10ml Syr (Rad Only) IV 08/21/23 00:47 10 ml NEEDED PRN Administration Maintain IV Site Discontinued Medications Generic Name Dose Route Start Last Admin Trade Name Freq PRN Reason Stop Dose Admin Lactated Ringer's 2,180 mls @ 1,090 mls/hr 07/21/23 23:46 07/22/23 00:00 Lactated Ringer's 1000 Ml Bag 30 ml/kg infuse over 2 hr (2180 ml) 07/22/23 01:45 1,090 mls/hr IV Administration .Q2H ONE Protocol Iopamidol 70 ml 07/22/23 00:48 04/21/24 00:49 Iopamidol-370 (76%);100ml Bottle IV 07/22/23 00:49 70 ml ONCE ONE Administration Sodium Chloride 50 ml 07/22/23 00:48 07/22/23 00:49 0.9 % Sodium Chloride 50 Ml Vial IV 07/22/23 00:49 50 ml ONCE ONE Administration ORDERS Category Date Time Status CT abdomen pelvis w con Stat Cat Scan 07/21/23 23:[address] angio chest PE protocol Stat Cat Scan 07/21/23 23:[address] head/brain wo con Stat Cat Scan 07/21/23 23:46 Completed Activated Partial Thrombo Time Stat Lab 07/21/23 23:22 Completed Complete Blood Count Auto Diff Stat Lab 07/21/23 23:22 Completed Comprehensive Metabolic Panel Stat Lab 07/21/23 23:22 Completed Lactic Acid Stat Lab 07/21/23 23:46 Completed Procalcitonin Stat Lab 07/21/23 23:22 Completed Prothrombin Time INR Stat Lab 07/21/23 23:22 Completed Trop I [Troponin I] Stat Lab 07/21/23 23:22 Completed Urinalysis and Microscopic Stat Lab 07/22/23 01:25 Completed Blood Culture Stat Micro 07/22/23 00:21 Received Urine Culture Stat Micro 07/21/23 01:25 Received Medical Decision Narrative: Patient is a 72-year-old female with past medical history hypertension, hyperlipidemia, hypothyroidism, ischemic bowel disease status post diverting ileostomy status post reversal with subsequent complication of intra-abdominal abscesses and prolonged hospitalization now on TPN and Zosyn through PICC line presenting with altered mental status and weakness. She is oriented to person and place but not time on exam, is chronically ill-appearing and has significant abdominal tenderness throughout palpation of the abdomen, does have healed midline surgical scar. She is tachycardic but with oxygen saturation normal on room air. Given appearance and history concern for possible sepsis and will initiate septic workup but she is on Zosyn already, will add vancomycin and obtain imaging for further evaluation. Given concern for sepsis she was given sepsis bolus 30 ml/kg fluids. CBC notable for leukocytosis to 16.4 which is slightly elevated from lab work that patient's had brought with him from patient's discharge, glucose within normal limits to 117, CMP nonactionable, procalcitonin significantly elevated to 4.67, troponin slightly elevated at 0.04 likely some ischemic demand, lactate elevated 2.8. UA appears noninfectious. CXR showing no acute process. CT PE showing no acute process. Delay in CT A/P results which we did attempt to contact radiology who state she is next to be read. CT did show a partial small bowel obstruction and 2.8cm abscess. Given patient does have significant surgical history and prolonged hospitalization at I did speak with transfer center Dr. Perez who recommends ED to ED transfer for further care and does request a disc as well in case of possible need for surgical intervention. To be transferred for further care EMS. Critical Care Critical Care Time Critical Care Time: Yes Attestation: On 07/21/23, the high probability of a clinically significant, sudden or life threatening deterioration of the following system(s) required my full and direct attention, intervention and personal management. The time I documented below is in addition to time spent performing reported procedures but includes the following listed in this critical care notation. Total Time Total Critical Care Time: 35
[2023-07-22 00:42] LABS: Lactic Acid 2.8 mmol/L (0.7-2.1)
[2023-07-22] MEDS: SODIUM CHLORIDE 0.9% 10ML SYR (RAD ONLY) 10 ML IV (00:49)
[2023-07-22] MEDS: 0.9 % SODIUM CHLORIDE 50 ML VIAL IV (00:49)
[2023-07-22] MEDS: IOPAMIDOL-370 (76%);100ML BOTTLE 70 ML IV (00:49)
[2023-07-22 01:29] LABS: Microscopic, Urine URINE MICROSCOPIC (MICROSCOPIC)
[2023-07-22 01:30] LABS: Appearance,Urine CLEAR (Clear); Bilirubin,Urine Negative (Negative); Blood, Urine TRACE-I (Negative); Color,Urine YELLOW (Yellow); Glucose,Urine (UA) Negative (Negative); Ketones,Urine Negative (Negative); Leukocyte Esterase,Urine Negative (Negative); Nitrate,Urine Negative (Negative); Protein,Urine 1+ (Negative); Specific Gravity, Urine 1.015 (1.005-1.030); Urobilinogen,Urine 0.2 EU/dl (0.2)
--- NOTE | 2023-07-22 01:49 | PC.NURSE ---
Rad staff checking on status of CT read of abdomen
--- NOTE | 2023-07-22 01:50 | PC.NURSE ---
images being read at this time
[2023-07-22 01:51] LABS: Bacteria,Urine 1+ /lpf; RBC,Urine Occasional #/hpf (0-3)
--- NOTE | 2023-07-22 03:10 | PC.NURSE ---
Pt images power shared to [facility] by Radiology
--- NOTE | 2023-07-22 03:11 | PC.NURSE ---
ED doc on phone with Dr. Perez @ re transfer
--- NOTE | 2023-07-22 03:15 | PC.NURSE ---
patient accepted at ED by Dr. Perez
--- NOTE | 2023-07-22 03:28 | PC.NURSE ---
Report called to [facility] ED Maryjo PALMER
== END 2023-07-22 04:06 | disposition short-term general hospital (02) ==
PROVIDERS: Emergency Provider Emergency Medicine; PCP Internal Medicine
DX: K68.11 Postprocedural retroperitoneal abscess (principal); K91.30 Postprocedural intestinal obstruction, unspecified as to partial versus complete; I10 Essential (primary) hypertension; E78.5 Hyperlipidemia, unspecified; E03.9 Hypothyroidism, unspecified
CPT/HCPCS: 70450; 71275; 74177; 80053; 81001; 83605; 84145; 84484; 85007; 85025; 85610; 85730; 87040; 87086; 96365; 96366; 99285; J3370; Q9967

== ENCOUNTER 2023-10-11 12:30 | Outpatient (CLI) | payer MEDICARE, OTHER, SELFPAY ==
[2023-10-11 18:13] LABS: Basophils # 0.1 K/mm3 (0-0.2); Basophils % 0.8 % (0.1-2.0); Eosinophils # 0.3 K/mm3 (0.0-0.4); Eosinophils % 3.7 % (0.1-12.0); Hematocrit 36.3 % (37.0-47.0); Hemoglobin 11.4 g/dL (12.2-16.2); Lymphocytes # 2.3 K/mm3 (0.7-4.5); Lymphocytes % 25.4 % (10-50); Mean Corpuscular HGB Conc 31.3 g/dL (31.8-35.4); Mean Corpuscular Hemoglobin 28.4 pg (27.0-31.2); Mean Corpuscular Volume 90.6 fl (81-99); Mean Platelet Volume 9.6 fl (7.4-10.4); Monocytes # 0.5 K/mm3 (0.1-1.0); Monocytes % 5.1 % (1.7-9.3); Neutrophils # 5.9 K/mm3 (1.8-7.8); Platelet Count 568 K/mm3 (142-424); Red Cell Distribution Width 19.8 % (11.5-17.5); White Blood Count 9.1 K/mm3 (4.8-10.8)
[2023-10-11 18:53] LABS: Chloride 109 mmol/L (98-107); Sodium 135 mmol/L (136-145)
[2023-10-11 18:56] LABS: Alanine Aminotransferase 66 U/L (12-78); Albumin Level 4.1 g/dl (3.5-5.0); Alkaline Phosphatase 510 U/L (38-126); Aspartate Amino Transferase 48 U/L (14-36); Bilirubin,Total 0.4 mg/dl (0.2-1.3); Blood Urea Nitrogen 17 mg/dl (7-17); Carbon Dioxide 18 mmol/L (22.0-30.0); Estimated Glomerular Filt Rate 62 ml/min (>60); GFR (African American) 74 ML/MIN (>60); Globulin 4.1 g/dL (1.3-3.2); Total Protein,Serum 8.2 g/dl (6.3-8.2)
[2023-10-11 18:57] LABS: Calcium 11.6 mg/dl (8.4-10.2); Glucose 91 mg/dl (74-100)
== END 2023-10-11 23:59 | disposition home or self-care (01) ==
LOC: LAB.DROPOF 10-12 10:02
PROVIDERS: PCP Internal Medicine; Visit Provider Internal Medicine
DX: D64.9 Anemia, unspecified (principal); E66.9 Obesity, unspecified
CPT/HCPCS: 80053; 85025

== ENCOUNTER 2023-10-25 09:21 | Outpatient (CLI) | payer MEDICARE, OTHER, SELFPAY ==
[2023-10-25 18:25] LABS: Basophils % 0.6 % (0.1-2.0); Eosinophils # 0.3 K/mm3 (0.0-0.4); Eosinophils % 4.5 % (0.1-12.0); Hematocrit 30.5 % (37.0-47.0); Hemoglobin 10.9 g/dL (12.2-16.2); Lymphocytes # 1.7 K/mm3 (0.7-4.5); Lymphocytes % 23.2 % (10-50); Mean Corpuscular HGB Conc 35.8 g/dL (31.8-35.4); Mean Corpuscular Hemoglobin 32.6 pg (27.0-31.2); Mean Corpuscular Volume 90.9 fl (81-99); Mean Platelet Volume 8.8 fl (7.4-10.4); Monocytes # 0.3 K/mm3 (0.1-1.0); Monocytes % 4.3 % (1.7-9.3); Neutrophils % 67.4 % (37.0-80.0); Platelet Count 428 K/mm3 (142-424); Red Blood Count 3.36 M/mm3 (4.20-5.40); Red Cell Distribution Width 19.2 % (11.5-17.5); White Blood Count 7.4 K/mm3 (4.8-10.8)
[2023-10-25 19:04] LABS: Alanine Aminotransferase 27 U/L (12-78); Albumin Level 3.9 g/dl (3.5-5.0); Albumin/Globulin Ratio 1.3 (1.1-1.8); Alkaline Phosphatase 207 U/L (38-126); Anion Gap 13.6 mEq/L (5-15); Aspartate Amino Transferase 30 U/L (14-36); Bilirubin,Total 0.4 mg/dl (0.2-1.3); Blood Urea Nitrogen 18 mg/dl (7-17); Calcium 9.4 mg/dl (8.4-10.2); Carbon Dioxide 21 mmol/L (22.0-30.0); Chloride 108 mmol/L (98-107); Estimated Glomerular Filt Rate 71 ml/min (>60); GFR (African American) 85 ML/MIN (>60); Globulin 3.1 g/dL (1.3-3.2); Glucose 87 mg/dl (74-100); Potassium 4.6 mmoL/L (3.5-5.1); Sodium 138 mmol/L (136-145)
[2023-10-25 19:34] LABS: Thyroid Stimulating Hormone 3.03 uIU/mL (0.465-4.68)
[2023-10-27 11:48] LABS: Prolactin 24.5 ng/mL (3.6-25.2)
[2023-10-29 10:51] LABS: Procalcitonin 0.048 ng/mL (0.0-2.0)
[2023-10-29 14:35] LABS: Calcium, Ionized 4.8 mg/dL (4.5-5.6)
== END 2023-10-25 23:59 | disposition home or self-care (01) ==
LOC: LAB.DROPOF 10-26 09:22
PROVIDERS: PCP Internal Medicine; Visit Provider Internal Medicine
DX: E66.9 Obesity, unspecified (principal); T81.31XA Disruption of external operation (surgical) wound, not elsewhere classified, initial encounter; E03.9 Hypothyroidism, unspecified; E78.2 Mixed hyperlipidemia; K91.30 Postprocedural intestinal obstruction, unspecified as to partial versus complete
CPT/HCPCS: 80053; 82330; 84145; 84146; 84443; 85025

== ENCOUNTER 2023-11-14 10:21 | Emergency (ER) | payer MEDICARE, OTHER, SELFPAY ==
[2023-11-14] VITALS (12 sets, daily range): BP systolic 95–187; BP diastolic 53–96; PULSE 83–113; RESP 16–20; TEMP 36.7–36.8; O2SAT 95–100; BMI 26.4
--- NOTE | 2023-11-14 10:40 | CT_ITS ---
FINAL REPORT CLINICAL HISTORY: Periumbilical pain, bilious emesis pt states she ate some food she wasn't supposed to with her ileostomy & now having some paid COMPARISON: 07/22/2023 FINDINGS: CT OF THE ABDOMEN AND PELVIS WITH CONTRAST Axial CT images of the abdomen and pelvis were obtained after the administration of IV contrast. Coronal and sagittal reformatted images were also obtained and reviewed. This study was performed with techniques to keep radiation doses as low as reasonably achievable (ALARA). Individualized dose reduction techniques using automated exposure control or adjustment of mA and/or kV according to the patient's size were employed. Abdomen: The lung bases are clear. The heart is normal in size. There is a 14 mm cyst present in the left liver dome, stable. Nonspecific gallbladder wall thickening is noted, without definite gallstones seen. No biliary ductal dilatation is present. The spleen is remarkable for multiple peripheral low-attenuation foci, that are worrisome for splenic infarcts. No adrenal mass is present. The pancreas has an unremarkable appearance. There is a small scar present in the upper pole of the left kidney, also worrisome for a small infarct. The aorta is normal in caliber. There is no free fluid or adenopathy. No mass or abnormal fluid collection is seen. Postoperative changes are present from a subtotal colectomy with a right lower quadrant ileostomy and a Chiang's pouch present. There is mild diffuse small bowel wall thickening, likely inflammatory. Pelvis: The appendix is not well-visualized. The urinary bladder is unremarkable. No inflammatory process is seen. There is no evidence of mass or adenopathy. There is no evidence of bowel obstruction. Bilateral hip arthroplasties produce streak artifact over the pelvis. IMPRESSION: There are multiple peripheral low-attenuation foci in the spleen, that are worrisome for infarcts. Mild diffuse small bowel wall thickening, likely inflammatory. Reviewed, Interpreted and Dictated by Clifford Ellison III, MD Transcribed by Fiona Barajas Authenticated and [facility]
--- NOTE | 2023-11-14 10:47 | ED_ITS ---
Discharge Plan Disposition Patient Disposition: Xfer Short-Term Hosp Prescriptions Prescriptions: No Action cholecalciferol (vitamin D3) 62.5 mcg (2,500 unit) capsule 62.5 mcg PO DAILY 90 Days Qty: 90 2RF fluticasone propion-salmeterol [Advair Diskus] 250-50 mcg/dose blister with device 250 inh inhalation ONCE metoclopramide HCl 10 mg tablet 10 mg PO Q6H PRN methocarbamol 500 mg tablet 500 mg PO HS promethazine 12.5 mg tablet 12.5 mg PO TID sulfamethoxazole-trimethoprim 400-80 mg tablet 1 tab PO DAILY duloxetine 60 mg capsule,delayed release(DR/EC) 60 mg PO ONCE oxycodone 10 mg tablet 5 mg PO .6 TIMES A DAY MDD no more than 6/day PRN (Reason: pain) Qty: 180 0RF potassium chloride 20 mEq tablet,ER particles/crystals 20 meq PO BID amlodipine 5 mg tablet 5 mg PO HS aspirin [Adult Low Dose Aspirin] 81 mg tablet,delayed release (DR/EC) 81 mg PO DAILY Eliquis 5 mg tablet 5 mg PO BID 90 Days Qty: 180 2RF furosemide [Lasix] 40 mg tablet 40 mg PO DAILY PRN (Reason: swelling) Qty: 30 0RF acyclovir 400 mg tablet See Rx Instructions .ROUTE .COMPLEX Qty: 60 3RF Dose Instruction: TAKE 1 TABLET BY MOUTH 2 (TWO) TIMES A DAY. Rx Instructions: TAKE 1 TABLET BY MOUTH 2 (TWO) TIMES A DAY. levothyroxine 25 mcg tablet See Rx Instructions .ROUTE .COMPLEX Qty: 90 1RF Dose Instruction: TAKE 1 TABLET BY MOUTH DAILY FOR HYPOTHYROIDISM Rx Instructions: TAKE 1 TABLET BY MOUTH DAILY FOR HYPOTHYROIDISM atorvastatin 20 mg tablet See Rx Instructions .ROUTE .COMPLEX Qty: 90 0RF Dose Instruction: TAKE 1 TABLET BY MOUTH DAILY. Rx Instructions: TAKE 1 TABLET BY MOUTH DAILY. ferrous sulfate 325 mg (65 mg iron) tablet 325 mg PO DAILY Qty: 30 3RF diphenoxylate-atropine 2.5-0.025 mg tablet 1 tab PO TID PRN (Reason: diarrhea) 30 Days Qty: 90 4RF losartan 50 mg tablet 75 mg PO DAILY Referrals Follow up/Referrals: Timothy Granda DO [Primary Care Provider] - See instructions Clinical Impressions Clinical Impression: Bilious emesis, Bowel wall thickening, Acidosis, lactic, TIP (acute kidney injury) Instructions Patient Instructions: DI for Acute Abdominal Pain Print Language Print Language: Georgian Discharge ED Provider: Dulce Maria Barbosa Adult HPI General Chief complaint: Abdominal Pain Stated complaint: Nausea/vomiting x3 days, his. of intest block Time Seen by Provider: 11/14/23 10:35 History of Present Illness HPI narrative: 73-year-old female presents to the ER with nausea, vomiting, periumbilical abdominal pain. Patient has a history of intestinal blockage and ileostomy. Her emesis has been bilious in the last 24 hours. Patient has tried home antiemetics which she believes Zofran without significant improvement. Patient is having abdominal pain and states she has missed her last dose of Oxy 10. Patient reports she had nausea and 1 episode of emesis on Sunday, however Sunday she ate chocolate and gummy bears which she knows she should not however she made a mistake and did it. She reports since that time she has had worsening belly pain and emesis. Patient denies dysuria or hematuria. She denies fevers, chest pain, shortness of breath, dizziness. Patient reports she is more comfortable laying down but when she stands up she has significant belly pain. She is concerned she is only passing liquid into her ostomy when she usually passes semisolid stool. Related Data Home Medications ?Medication ?Instructions ?Recorded ?Confirmed potassium chloride 20 mEq 20 meq PO BID 11/21/22 10/25/23 tablet,extended release(part/cryst) fluticasone 250 mcg-salmeterol 50 250 inh inhalation ONCE 03/08/23 10/25/23 mcg/dose blistr powdr for inhalation (Advair Diskus) amlodipine 5 mg tablet 5 mg PO HS hypertension 04/05/23 10/25/23 aspirin 81 mg tablet,delayed 81 mg PO DAILY 04/05/23 10/25/23 release (Adult Low Dose Aspirin) losartan 50 mg tablet 75 mg PO DAILY 07/22/23 10/25/23 methocarbamol 500 mg tablet 500 mg PO HS 10/11/23 10/25/23 metoclopramide HCl 10 mg tablet 10 mg PO Q6H PRN 10/11/23 10/25/23 promethazine 12.5 mg tablet 12.5 mg PO TID 10/11/23 10/25/23 duloxetine 60 mg capsule,delayed 60 mg PO ONCE 10/25/23 10/25/23 release sulfamethoxazole 400 1 tab PO DAILY 10/25/23 10/25/23 mg-trimethoprim 80 mg tablet Previous Rx's ?Medication ?Instructions ?Recorded apixaban 5 mg tablet (Eliquis) 5 mg PO BID 90 days #180 tabs 10/09/22 furosemide 40 mg tablet (Lasix) 40 mg PO DAILY PRN swelling #30 04/09/23 tabs cholecalciferol (vitamin D3) 62.5 62.5 mcg PO DAILY 90 days #90 caps 04/10/23 mcg (2,500 unit) capsule acyclovir 400 mg tablet See Rx Instructions .Route 05/22/23 .COMPLEX #60 tabs atorvastatin 20 mg tablet See Rx Instructions .Route 06/12/23 .COMPLEX #90 tabs levothyroxine 25 mcg tablet See Rx Instructions .Route 06/12/23 .COMPLEX #90 tabs ferrous sulfate 325 mg (65 mg 325 mg PO DAILY #30 tabs 10/25/23 iron) tablet oxycodone 10 mg tablet 5 mg (1/2 x 10 mg) PO .6 TIMES A 10/25/23 DAY PRN pain #180 tabs diphenoxylate-atropine 2.5 1 tab PO TID PRN diarrhea 30 days 11/07/23 mg-0.025 mg tablet #90 tabs Allergies Allergy/AdvReac Type Severity Reaction Status Date / Time ciprofloxacin [From Cipro] Allergy Intermediate Muscle Pain Verified 10/25/23 09:35 levofloxacin [From Levaquin] AdvReac Verified 10/25/23 09:35 [facility] Disclaimer: The information contained in this section may have been updated after the patient was seen, as this information can be updated by other users. Medical History Colostomy in place Perforated sigmoid colon Elevated liver enzymes Ileus Abnormal electrocardiogram [ECG] [EKG] Abdominal pain TIP (acute kidney injury) Hypothyroidism TSH in August was 4.36 which is follow-up. IBS (irritable bowel syndrome) HLD (hyperlipidemia) Will do a lipid panel after she returns from her surgery. HTN (hypertension), benign Blood pressure today was within normal limits. Will just follow closely as the medication changes have been working well. Hypokalemia C. difficile diarrhea Hypokalemia due to loss of potassium Surgical History H/O ileostomy History of total right hip replacement History of arthroscopy of left shoulder Family History Other Anemia Asthma Cancer Hyperlipidemia Social History Smoking Status: Former smoker second hand exposure: No alcohol intake: never current occupational status: retired Travel in the last 8 weeks: None household members: spouse housing: house current occupational exposures/hazards: No caffeine: No ROS Obtained: Yes All systems reviewed & no additional complaints except as documented Positive ROS per HPI Physical Exam General General appearance: alert and in no apparent distress Head Head exam: atraumatic and normocephalic Eye Eye exam: Present PERRL and EOMI ENT ENT exam: Present mucous membranes moist Neck Neck exam: Present normal inspection and full ROM Chest Chest inspection: Present symmetric chest wall rise Respiratory Respiratory exam: Present normal lung sounds bilaterally; Absent respiratory distress, wheezes or stridor Cardiovascular Cardiovascular exam: Present regular rate and normal rhythm Abdominal Exam Abdominal exam: Present soft and tenderness (Periumbilical); Absent distention, guarding, rebound or rigidity Abdominal tenderness: Present moderate Comment: Ileostomy with liquid green?brown output, ostomy is well-appearing Extremities Exam Extremities exam: Present full ROM; Absent edema Neurological Exam Neurological exam: Present alert and oriented X3; Absent motor sensory deficit Psychiatric Psychiatric exam: Present normal affect and normal mood Skin Skin exam: Present warm and dry Medical Decision Making Medical Records Medical records reviewed: Yes I reviewed the patient's medical records. MR Comment: Most recent note from Dr. Granda was reviewed demonstrate patient has decreased the amount of narcotic pain medication she was taking. She has had reassuring PDMP's. . He was planning 3 to 4-week follow-up after 10/24 Beto Inquiry Pt receiving controlled substance: No Vital Signs: 11/14/23 10:22 11/14/23 10:39 11/14/23 10:40 Temperature 98.0 F Temperature Source Oral Pulse Rate 106 H 107 H Pulse Rate [Right] 109 H Respiratory Rate 20 Blood Pressure 179/94 H 163/96 H Blood Pressure [Right Arm] 167/94 H Blood Pressure Mean 122 118 Blood Pressure Mean [Right Arm] 118 Blood Pressure Source [Right Arm] Automatic Cuff 02 Sat by Pulse Oximetry 98 95 99 Oxygen Delivery Method Room Air 11/14/23 10:50 11/14/23 10:58 11/14/23 11:00 Temperature Temperature Source Pulse Rate 106 H 104 H 113 H Pulse Rate [Right] Respiratory Rate 18 16 Blood Pressure 187/96 H 166/93 H 184/96 H Blood Pressure [Right Arm] Blood Pressure Mean 125 117 124 Blood Pressure Mean [Right Arm] Blood Pressure Source [Right Arm] 02 Sat by Pulse Oximetry 97 98 97 Oxygen Delivery Method 11/14/23 11:10 11/14/23 13:00 11/14/23 13:25 Temperature Temperature Source Pulse Rate 101 H 101 H 86 Pulse Rate [Right] Respiratory Rate 18 Blood Pressure 155/89 H 122/62 Blood Pressure [Right Arm] Blood Pressure Mean 117 82 Blood Pressure Mean [Right Arm] Blood Pressure Source [Right Arm] 02 Sat by Pulse Oximetry 97 100 97 Oxygen Delivery Method Lab Data Lab Results 11/14/23 10:32: WBC 9.6, RBC 5.27, Hgb 15.1, Hct 48.7 H, MCV 92.4, MCH 28.7, M CHC 31.0 L, RDW 17.7 H, Plt Count 525 H, MPV 7.5, Neut % (Auto) 79.2, Lymph % (Auto) 15.9, [place] % (Auto) 3.8, Eos % (Auto) 0.6, Baso % (Auto) 0.6, Neut # (Auto) 7.6, Lymph # (Auto) 1.5, [place] # (Auto) 0.4, Eos # (Auto) 0.1, Baso # (Auto) 0.1, PT 10.7, INR 0.95, Sodium 135 L, Potassium 5.2 H, Chloride 102, Carbon Dioxide 23, Anion Gap 15.2 H, BUN 34 H, Creatinine 1.20 H, Estimated Creat Clear 42, Estimated GFR 44 L, Est GFR ( Amer) 53 L, Glucose 165 H, Lactate 2.7 H, Calcium 10.2, Total Bilirubin 0.8, AST 46 H, ALT 59, Alkaline Phosphatase 242 H, Total Protein 8.4 H, Albumin 4.8, Globulin 3.6 H, Albumin/Globulin Ratio 1.3, Lipase 167 11/14/23 10:32 11/14/23 10:32 Orders (Tests/Meds): ED MEDICATIONS Generic Name Dose Route Start Last Admin Trade Name Freq PRN Reason Stop Dose Admin Piperacillin Sod/Tazobactam 100 mls @ 200 mls/hr 11/14/23 12:15 11/14/23 12:12 Sod 4.5 gm/ Sodium Chloride IV 11/24/23 12:14 200 mls/hr Q8H RACHEL Administration Lactated Ringer's 1,430 mls @ 715 mls/hr 11/14/23 12:10 11/14/23 12:27 Lactated Ringer's 1000 Ml Bag 30 ml/kg infuse over 2 hr (1430 ml) 11/14/23 14:09 715 mls/hr IV Administration .Q2H ONE Discontinued Medications Generic Name Dose Route Start Last Admin Trade Name Freq PRN Reason Stop Dose Admin Lactated Ringer's 1,000 mls @ 999 mls/hr 11/14/23 10:40 11/14/23 10:53 Lactated Ringer's 1000 Ml Bag IV 11/14/23 11:40 999 mls/hr .Q1H1M ONE Administration Iopamidol 75 ml 11/14/23 11:30 11/14/23 11:32 Iopamidol-370 (76%);100ml Bottle IV 11/14/23 11:31 75 ml ONCE ONE Administration Morphine Sulfate 4 mg 11/14/23 10:45 11/14/23 10:51 Morphine 4mg/Ml Syringe IV 11/14/23 10:46 Not Given ONCE ONE Morphine Sulfate 8 mg 11/14/23 10:50 11/14/23 10:54 Morphine 8mg/Ml Syringe IV 11/14/23 10:51 8 mg ONCE ONE Administration Ondansetron HCl 4 mg 11/14/23 10:40 11/14/23 10:53 Ondansetron 4mg/2ml Vial IV 11/14/23 10:41 4 mg ONCE ONE Administration Sodium Chloride 10 ml 11/14/23 11:30 11/14/23 11:32 Sodium Chloride 0.9% 10ml Syr (Rad Only) IV 11/14/23 11:31 10 ml ONCE ONE Administration ORDERS Category Date Time Status CT abdomen pelvis w con Stat Cat Scan 11/14/23 10:40 Completed CBC w/Auto Diff [Complete Blood Count Auto Diff] Stat Lab 11/14/23 10:32 Completed CMP [Comprehensive Metabolic Panel] Stat Lab 11/14/23 10:32 Completed Lactic Acid Stat Lab 11/14/23 10:32 Completed Lipase Stat Lab 11/14/23 10:32 Completed PT INR [Prothrombin Time INR] Stat Lab 11/14/23 10:32 Completed Medical Decision Narrative: In summary, this 73-year-old female presents to the emergency department today with periumbilical abdominal pain, change in ostomy output, bilious emesis. On initial evaluation patient is mildly tachycardic but otherwise stable, afebrile, periumbilical tenderness to palpation, liquid ostomy output, well-appearing ostomy, nonacute abdomen, remainder of exam reassuring. Patient has comorbidities of multiple previous abdominal surgeries including surgeries for obstruction, ostomy, these increase patient's overall morbidity and risk of obstruction. Differential diagnosis includes but is not limited to bowel obstruction, viral syndrome, electrolyte abnormality, dehydration, kidney dysfunction, abscess, fistula. Based on these concerns, I ordered serum labs, CT imaging, symptomatic treatment. Patient received IV fluids, Zofran, morphine for treatment. Labs personally reviewed demonstrate no leukocytosis or anemia, thrombocythemia with platelets 525 increased from previous, mild hyperkalemia with potassium 5.2, slight hyponatremia, patient does have findings of TIP with BUN 34, creatinine 1.2, she is receiving IV fluids. Lactate elevated at 2.7, mild elevation in AST and alk phos, nonspecific at this time. Lipase normal at 167. CT abdomen pelvis personally interpreted demonstrates findings concerning for possible pneumatosis in the small bowel in the periumbilical region which correlates clinically. There is bowel thickening consistent with enteritis. Patient is going to receive additional IV fluids to complete a sepsis bolus since she has the elevated lactic, tachycardia, and these abnormalities on CT. She is also receiving IV Zosyn. See radiology read for final interpretation which does not mention the pneumatosis but does discuss possible splenic infarcts. Given the findings concerning for questionable pneumatosis, bowel thickening, recent postop patient with [facility], I called for consult and transfer. Discussed this case with Dr. Mello initially, he was getting a hold of surgery to review the images. I discussed this case with Dr. Saleem with general surgery who is not convinced of pneumatosis but given the patient is a recent postop patient with lactic acidosis, kidney dysfunction from emesis, bilious emesis, and the physical exam as documented, she excepted the patient for transfer to as an ED to ED transfer. Patient will go via ALS to continue receiving fluids, pain medications if needed. She was transferred in stable condition. Critical Care Critical Care Time Critical Care Time: No
[2023-11-14] MEDS: LACTATED RINGERS 1000ML 1,000 ML 999 ML IV (10:53)
[2023-11-14] MEDS: ONDANSETRON 4MG/2ML VIAL 4 MG IV (10:53)
[2023-11-14] MEDS: MORPHINE 8MG/ML SYRINGE 8 MG IV (10:54)
[2023-11-14 11:01] LABS: Basophils # 0.1 K/mm3 (0-0.2); Basophils % 0.6 % (0.1-2.0); Eosinophils # 0.1 K/mm3 (0.0-0.4); Eosinophils % 0.6 % (0.1-12.0); Hematocrit 48.7 % (37.0-47.0); Hemoglobin 15.1 g/dL (12.2-16.2); Lymphocytes # 1.5 K/mm3 (0.7-4.5); Lymphocytes % 15.9 % (10-50); Mean Corpuscular Hemoglobin 28.7 pg (27.0-31.2); Mean Corpuscular Volume 92.4 fl (81-99); Mean Platelet Volume 7.5 fl (7.4-10.4); Monocytes # 0.4 K/mm3 (0.1-1.0); Monocytes % 3.8 % (1.7-9.3); Neutrophils # 7.6 K/mm3 (1.8-7.8); Neutrophils % 79.2 % (37.0-80.0); Platelet Count 525 K/mm3 (142-424); Red Blood Count 5.27 M/mm3 (4.20-5.40); Red Cell Distribution Width 17.7 % (11.5-17.5); White Blood Count 9.6 K/mm3 (4.8-10.8)
[2023-11-14 11:02] LABS: Albumin Level 4.8 g/dl (3.5-5.0); Chloride 102 mmol/L (98-107); Potassium 5.2 mmoL/L (3.5-5.1); Sodium 135 mmol/L (136-145)
[2023-11-14 11:05] LABS: Alanine Aminotransferase 59 U/L (12-78); Albumin/Globulin Ratio 1.3 (1.1-1.8); Alkaline Phosphatase 242 U/L (38-126); Anion Gap 15.2 mEq/L (5-15); Aspartate Amino Transferase 46 U/L (14-36); Bilirubin,Total 0.8 mg/dl (0.2-1.3); Blood Urea Nitrogen 34 mg/dl (7-17); Calcium 10.2 mg/dl (8.4-10.2); Carbon Dioxide 23 mmol/L (22.0-30.0); Creatinine Clearance Estimated 42 mL/min (50-200); Estimated Glomerular Filt Rate 44 ml/min (>60); GFR (African American) 53 ML/MIN (>60); Globulin 3.6 g/dL (1.3-3.2); Glucose 165 mg/dl (74-100); INR 0.95 (0.9-1.1); Lipase 167 U/L (23-300); Prothrombin Time 10.7 seconds (10.1-12.5); Total Protein,Serum 8.4 g/dl (6.3-8.2)
[2023-11-14 11:14] LABS: Lactic Acid 2.7 mmol/L (0.7-2.1)
--- NOTE | 2023-11-14 11:28 | PC.NURSE ---
PT RETURNED FROM CT
[2023-11-14] MEDS: SODIUM CHLORIDE 0.9% 10ML SYR (RAD ONLY) 10 ML IV (11:32)
[2023-11-14] MEDS: IOPAMIDOL-370 (76%);100ML BOTTLE 75 ML IV (11:32)
--- NOTE | 2023-11-14 11:34 | PC.NURSE ---
RADIOLOGY NOTIFIED TO [employer] TO [facility]
--- NOTE | 2023-11-14 12:01 | PC.NURSE ---
Called [facility] per Dr Barbosa to speak with Gen Surgery about this pt. being transferred for Pneumotosis. [facility] advised they would call us back as soon as he made contact with someone.
--- NOTE | 2023-11-14 12:01 | PC.NURSE ---
DR ANDERSEN AT BEDSIDE TO UPDATE PT AND FAMILY
--- NOTE | 2023-11-14 12:07 | PC.NURSE ---
DR ANDERSEN SPEAKING WITH [facility]
[2023-11-14] MEDS: PIPERACILLIN/TAZO 4.5 GM in 0.9 % SODIUM CHLORIDE 100 ML IV (12:12)
[2023-11-14] MEDS: LACTATED RINGERS 1000ML 1,430 ML 715 ML IV (12:27)
--- NOTE | 2023-11-14 13:20 | PC.NURSE ---
dr dorsey speaking with [facility]
--- NOTE | 2023-11-14 13:20 | PC.NURSE ---
Called back and is speaking with Dr Barbosa at this time
--- NOTE | 2023-11-14 13:56 | PC.NURSE ---
Gave report to Lisa RN- Charge nurse @ [facility]
--- NOTE | 2023-11-14 14:11 | PC.NURSE ---
Pt transferring to [facility] via EMS ALS transfer
[2023-11-14 14:49] LABS: Reflex Lactic Add Lactic Reflex
== END 2023-11-14 14:07 | disposition short-term general hospital (02) ==
PROVIDERS: Emergency Provider Emergency Medicine; PCP Internal Medicine
DX: R10.33 Periumbilical pain (principal); K63.9 Disease of intestine, unspecified; R74.02 Elevation of levels of lactic acid dehydrogenase [LDH]; E87.29 Other acidosis; R11.14 Bilious vomiting; N17.9 Acute kidney failure, unspecified; R00.0 Tachycardia, unspecified; Z93.3 Colostomy status; E03.9 Hypothyroidism, unspecified; I10 Essential (primary) hypertension; E78.5 Hyperlipidemia, unspecified
CPT/HCPCS: 74177; 80053; 83605; 83690; 85025; 85610; 96361; 96365; 96366; 96375; 99285; J2405; J2543; J7120; Q9967

== ENCOUNTER 2023-11-17 18:39 | Emergency (ER) | payer MEDICARE, OTHER, SELFPAY ==
[2023-11-17 18:41] VITALS: BP 138/75; PULSE 87; RESP 16; TEMP 36.5; O2SAT 98; BMI 25.6
[2023-11-17 20:00] VITALS: BP 160/73; PULSE 76; O2SAT 96
--- NOTE | 2023-11-17 20:04 | ECG_ITS ---
APPROVED REPORT Exam: Resting ECG HR:74 bpm ECG Measurements Heart Rate 74 AXES SC 147 P 80 QRSd 86 QRS 73 QT 392 T 76 QTc 419 Conclusion SINUS RHYTHM NORMAL ECG Electronically signed by : JUSTIN ANDERSEN, 11/18/2023 03:42:01
--- NOTE | 2023-11-17 20:04 | CT_ITS ---
PROCEDURE INFORMATION: Exam: CT Abdomen With Contrast Exam date and time: 11/17/2023 8:52 PM Age: 73 years old Clinical indication: Abdominal pain; Epigastric; Additional info: Abd pain - epigastric TECHNIQUE: Imaging protocol: Computed tomography of the abdomen with contrast. Radiation optimization: All CT scans at this facility use at least one of these dose optimization techniques: automated exposure control; mA and/or kV adjustment per patient size (includes targeted exams where dose is matched to clinical indication); or iterative reconstruction. Contrast material: ISOVUE; Contrast volume: 75 ml; Contrast route: IV; COMPARISON: CT ABDOMEN PELVIS W CON 11/14/2023 11:25 AM FINDINGS: Lungs: Clear basilar lung parenchyma. Pleural spaces: No pleural fluid. Heart: Normal heart size. Liver: Small cyst noted in the central right hepatic lobe, otherwise homogeneous liver parenchyma. Gallbladder and biliary ducts: Postprandial gallbladder is contracted. No biliary tree dilation. Pancreas: No visible pancreatic edema or mass. Spleen: Normal. No splenomegaly. Adrenal glands: Normal. No mass. Kidneys and ureters: Kidneys enhance symmetrically and demonstrate no evidence of mass, calculus, obstruction, or inflammation. Stomach and bowel: Right lower quadrant stoma noted. No visible gastric ulcer or mass. Imaged bowel is normal in caliber with normal enhancement. Intraperitoneal space: No free air. No significant fluid collection. Vasculature: Mild aortoiliac calcific atherosclerosis without aneurysm. Lymph nodes: No enlarged lymph nodes. Bones/joints: No acute fracture or destructive lesion. Soft tissues: Healed midline abdominal wall incision. IMPRESSION: No acute abnormality identified to explain patient's epigastric pain. In particular, the pancreas appears normal and there is no visible gastric ulcer or mass. Postprandial gallbladder is contracted which is centrally excludes cystic duct occlusion.
--- NOTE | 2023-11-17 20:04 | XR_ITS ---
PROCEDURE INFORMATION: Exam: XR Chest Exam date and time: 11/17/2023 8:22 PM Age: 73 years old Clinical indication: Other: Abdomen pain; Additional info: Abd pain TECHNIQUE: Imaging protocol: Radiologic exam of the chest. Views: 1 view. COMPARISON: CT ANGIO CHEST PE PROTOCOL 07/22/2023 12:34 AM FINDINGS: Tubes, catheters and devices: Bilateral prosthetic shoulders. Lungs: Clear, symmetrically inflated lungs. Pleural spaces: No pleural effusion. No pneumothorax. Heart/Mediastinum: Cardiac silhouette is normal in size for technique. Bones/joints: Age appropriate. No acute displaced fracture. IMPRESSION: No acute cardiopulmonary abnormality.
[2023-11-17] MEDS: 0.9 % SODIUM CHLORIDE 1000ML 1,000 ML 999 ML IV (20:10)
[2023-11-17] MEDS: ONDANSETRON 4MG/2ML VIAL 4 MG IV (20:10)
[2023-11-17] MEDS: MORPHINE 4MG/ML SYRINGE 4 MG IV (20:11)
[2023-11-17 20:12] LABS: Basophils % 0.3 % (0.1-2.0); Eosinophils # 0.2 K/mm3 (0.0-0.4); Eosinophils % 2.1 % (0.1-12.0); Hematocrit 40.3 % (37.0-47.0); Hemoglobin 12.8 g/dL (12.2-16.2); Lymphocytes # 1.8 K/mm3 (0.7-4.5); Lymphocytes % 22.3 % (10-50); Mean Corpuscular HGB Conc 31.9 g/dL (31.8-35.4); Mean Corpuscular Hemoglobin 29.3 pg (27.0-31.2); Mean Platelet Volume 6.6 fl (7.4-10.4); Monocytes # 0.4 K/mm3 (0.1-1.0); Monocytes % 4.7 % (1.7-9.3); Neutrophils # 5.6 K/mm3 (1.8-7.8); Neutrophils % 70.5 % (37.0-80.0); Platelet Count 407 K/mm3 (142-424); Red Blood Count 4.38 M/mm3 (4.20-5.40); Red Cell Distribution Width 16.8 % (11.5-17.5)
[2023-11-17 20:14] LABS: Albumin Level 4.1 g/dl (3.5-5.0); Chloride 107 mmol/L (98-107); Potassium 4.2 mmoL/L (3.5-5.1); Sodium 139 mmol/L (136-145)
[2023-11-17 20:16] LABS: Alanine Aminotransferase 36 U/L (12-78); Aspartate Amino Transferase 34 U/L (14-36); Bilirubin,Total 0.6 mg/dl (0.2-1.3); Blood Urea Nitrogen 16 mg/dl (7-17); Creatinine Clearance Estimated 51 mL/min (50-200); Estimated Glomerular Filt Rate 82 ml/min (>60); GFR (African American) 100 ML/MIN (>60)
[2023-11-17 20:17] LABS: Albumin/Globulin Ratio 1.3 (1.1-1.8); Alkaline Phosphatase 184 U/L (38-126); Anion Gap 11.2 mEq/L (5-15); Calcium 9.3 mg/dl (8.4-10.2); Carbon Dioxide 25 mmol/L (22.0-30.0); Globulin 3.2 g/dL (1.3-3.2); Glucose 106 mg/dl (74-100); Lipase 214 U/L (23-300); Total Protein,Serum 7.3 g/dl (6.3-8.2)
[2023-11-17 20:18] LABS: Lactic Acid 1.6 mmol/L (0.7-2.1)
[2023-11-17 20:30] VITALS: BP 168/78; PULSE 73; O2SAT 100
--- NOTE | 2023-11-17 20:46 | ED_ITS ---
Discharge Plan Disposition Patient Disposition: Home, Self-Care Condition: Good Prescriptions Prescriptions: No Action cholecalciferol (vitamin D3) 62.5 mcg (2,500 unit) capsule 62.5 mcg PO DAILY 90 Days Qty: 90 2RF fluticasone propion-salmeterol [Advair Diskus] 250-50 mcg/dose blister with device 250 inh inhalation ONCE metoclopramide HCl 10 mg tablet 10 mg PO Q6H PRN methocarbamol 500 mg tablet 500 mg PO HS promethazine 12.5 mg tablet 12.5 mg PO TID sulfamethoxazole-trimethoprim 400-80 mg tablet 1 tab PO DAILY duloxetine 60 mg capsule,delayed release(DR/EC) 60 mg PO ONCE oxycodone 10 mg tablet 5 mg PO .6 TIMES A DAY MDD no more than 6/day PRN (Reason: pain) Qty: 180 0RF potassium chloride 20 mEq tablet,ER particles/crystals 20 meq PO BID amlodipine 5 mg tablet 5 mg PO HS aspirin [Adult Low Dose Aspirin] 81 mg tablet,delayed release (DR/EC) 81 mg PO DAILY Eliquis 5 mg tablet 5 mg PO BID 90 Days Qty: 180 2RF furosemide [Lasix] 40 mg tablet 40 mg PO DAILY PRN (Reason: swelling) Qty: 30 0RF acyclovir 400 mg tablet See Rx Instructions .ROUTE .COMPLEX Qty: 60 3RF Dose Instruction: TAKE 1 TABLET BY MOUTH 2 (TWO) TIMES A DAY. Rx Instructions: TAKE 1 TABLET BY MOUTH 2 (TWO) TIMES A DAY. levothyroxine 25 mcg tablet See Rx Instructions .ROUTE .COMPLEX Qty: 90 1RF Dose Instruction: TAKE 1 TABLET BY MOUTH DAILY FOR HYPOTHYROIDISM Rx Instructions: TAKE 1 TABLET BY MOUTH DAILY FOR HYPOTHYROIDISM atorvastatin 20 mg tablet See Rx Instructions .ROUTE .COMPLEX Qty: 90 0RF Dose Instruction: TAKE 1 TABLET BY MOUTH DAILY. Rx Instructions: TAKE 1 TABLET BY MOUTH DAILY. ferrous sulfate 325 mg (65 mg iron) tablet 325 mg PO DAILY Qty: 30 3RF diphenoxylate-atropine 2.5-0.025 mg tablet 1 tab PO TID PRN (Reason: diarrhea) 30 Days Qty: 90 4RF losartan 50 mg tablet 75 mg PO DAILY Referrals Follow up/Referrals: Timothy Granda DO [Primary Care Provider] - See instructions Clinical Impressions Clinical Impression: Abdominal pain Instructions Patient Instructions: DI for Acute Abdominal Pain Print Language Print Language: Nicaraguan Discharge ED Provider: Austin Rangel General Adult HPI General Chief complaint: Abdominal Pain Stated complaint: Stomach pain,abd pain,nausea,diarrhea Time Seen by Provider: 11/17/23 19:35 Mode of Arrival: Wheelchair Source of Information: Patient Limitations: No Limitations Description of Symptoms (Recalled from ER Triage Doc. by RN): Pt presents with increased abdominal pain after being seen here last Wed and transferred to . Pt has ostomy which she states has had decreased output and diaphram/ upper abdominal pain. Pt has taken her oxycodone with no relief, last dose at noon. History of Present Illness HPI narrative: 73-year-old female presents to the ED with complaint of abdominal pain. Past medical history significant for chronic abdominal pain with colostomy, ileostomy, prior ileus and multiple abdominal surgeries in the past. Patient was seen in ED this past week with concern for obstruction and was sent to for observation however was ultimately discharged home in stable condition. Today states that her pain is increased and she is still having some nausea. States that she ate some gummy bears and that has been painful. Pain is most significant in epigastrium. Denies history of pancreatitis. Denies chest pain, shortness of breath, any other symptoms at this time Related Data Home Medications ?Medication ?Instructions ?Recorded ?Confirmed potassium chloride 20 mEq 20 meq PO BID 11/21/22 10/25/23 tablet,extended release(part/cryst) fluticasone 250 mcg-salmeterol 50 250 inh inhalation ONCE 03/08/23 10/25/23 mcg/dose blistr powdr for inhalation (Advair Diskus) amlodipine 5 mg tablet 5 mg PO HS hypertension 04/05/23 10/25/23 aspirin 81 mg tablet,delayed 81 mg PO DAILY 04/05/23 10/25/23 release (Adult Low Dose Aspirin) losartan 50 mg tablet 75 mg PO DAILY 07/22/23 10/25/23 methocarbamol 500 mg tablet 500 mg PO HS 10/11/23 10/25/23 metoclopramide HCl 10 mg tablet 10 mg PO Q6H PRN 10/11/23 10/25/23 promethazine 12.5 mg tablet 12.5 mg PO TID 10/11/23 10/25/23 duloxetine 60 mg capsule,delayed 60 mg PO ONCE 10/25/23 10/25/23 release sulfamethoxazole 400 1 tab PO DAILY 10/25/23 10/25/23 mg-trimethoprim 80 mg tablet Previous Rx's ?Medication ?Instructions ?Recorded apixaban 5 mg tablet (Eliquis) 5 mg PO BID 90 days #180 tabs 10/09/22 furosemide 40 mg tablet (Lasix) 40 mg PO DAILY PRN swelling #30 04/09/23 tabs cholecalciferol (vitamin D3) 62.5 62.5 mcg PO DAILY 90 days #90 caps 04/10/23 mcg (2,500 unit) capsule acyclovir 400 mg tablet See Rx Instructions .Route 05/22/23 .COMPLEX #60 tabs atorvastatin 20 mg tablet See Rx Instructions .Route 06/12/23 .COMPLEX #90 tabs levothyroxine 25 mcg tablet See Rx Instructions .Route 06/12/23 .COMPLEX #90 tabs ferrous sulfate 325 mg (65 mg 325 mg PO DAILY #30 tabs 10/25/23 iron) tablet oxycodone 10 mg tablet 5 mg (1/2 x 10 mg) PO .6 TIMES A 10/25/23 DAY PRN pain #180 tabs diphenoxylate-atropine 2.5 1 tab PO TID PRN diarrhea 30 days 11/07/23 mg-0.025 mg tablet #90 tabs Allergies Allergy/AdvReac Type Severity Reaction Status Date / Time ciprofloxacin [From Cipro] Allergy Intermediate Muscle Pain Verified 10/25/23 09:35 levofloxacin [From Levaquin] AdvReac Verified 10/25/23 09:35 [facility] Disclaimer: The information contained in this section may have been updated after the patient was seen, as this information can be updated by other users. Medical History Colostomy in place Perforated sigmoid colon Elevated liver enzymes Ileus Abnormal electrocardiogram [ECG] [EKG] Abdominal pain TIP (acute kidney injury) Hypothyroidism TSH in August was 4.36 which is follow-up. IBS (irritable bowel syndrome) HLD (hyperlipidemia) Will do a lipid panel after she returns from her surgery. HTN (hypertension), benign Blood pressure today was within normal limits. Will just follow closely as the medication changes have been working well. Hypokalemia C. difficile diarrhea Hypokalemia due to loss of potassium Surgical History H/O ileostomy History of total right hip replacement History of arthroscopy of left shoulder Family History Other Anemia Asthma Cancer Hyperlipidemia Social History Smoking Status: Never smoker second hand exposure: No alcohol intake: never current occupational status: retired Travel in the last 8 weeks: None household members: spouse housing: house current occupational exposures/hazards: No caffeine: No ROS Obtained: Yes Systems reviewed as appropriate & no additional complaints except as documented Physical Exam General General appearance: alert and in no apparent distress Head Head exam: atraumatic and normocephalic Eye Eye exam: Present normal appearance and EOMI ENT ENT exam: Present normal exam Neck Neck exam: Present normal inspection Chest Chest inspection: Present normal inspection and symmetric chest wall rise Respiratory Respiratory exam: Present normal lung sounds bilaterally Cardiovascular Cardiovascular exam: Present regular rate, normal rhythm and normal heart sounds Abdominal Exam Abdominal exam: Present soft (Colostomy site without findings of infection, no noted erythema or drainage, pink with good color.), tenderness (Epigastrium tender to palpation) and normal bowel sounds; Absent distention Abdominal tenderness: Present epigastrium Extremities Exam Extremities exam: Present normal inspection and full ROM; Absent tenderness Back Exam Back exam: Present normal inspection Neurological Exam Neurological exam: Present alert and oriented X3 Psychiatric Psychiatric exam: Present normal affect and normal mood Skin Skin exam: Present warm, dry, intact and normal color; Absent rash Medical Decision Making Medical Records Medical records reviewed: Yes I reviewed the patient's medical records. Beto Inquiry Pt receiving controlled substance: No Vital Signs: 11/17/23 18:41 11/17/23 20:00 11/17/23 20:30 Temperature 97.7 F Temperature Source Oral Pulse Rate 76 73 Pulse Rate [Left] 87 Respiratory Rate 16 Blood Pressure 160/73 H 168/78 H Blood Pressure [Right Arm] 138/75 Blood Pressure Mean 111 108 Blood Pressure Mean [Right Arm] 96 Blood Pressure Source Blood Pressure Source [Right Arm] Automatic Cuff Blood Pressure Position Blood Pressure Position [Right Arm] Supine 02 Sat by Pulse Oximetry 98 96 100 Oxygen Delivery Method Room Air 11/17/23 23:01 Temperature 97.7 F Temperature Source Oral Pulse Rate 71 Pulse Rate [Left] Respiratory Rate 16 Blood Pressure 138/66 Blood Pressure [Right Arm] Blood Pressure Mean Blood Pressure Mean [Right Arm] Blood Pressure Source Automatic Cuff Blood Pressure Source [Right Arm] Blood Pressure Position Sitting Blood Pressure Position [Right Arm] 02 Sat by Pulse Oximetry Oxygen Delivery Method Room Air Lab Data Lab Results 11/17/23 19:30: WBC 8.0, RBC 4.38, Hgb 12.8, Hct 40.3, MCV 92.0, MCH 29.3, MCHC 31.9, RDW 16.8, Plt Count 407, MPV 6.6 L, Neut % (Auto) 70.5, Lymph % (Auto) 22.3, Jenkins % (Auto) 4.7, Eos % (Auto) 2.1, Baso % (Auto) 0.3, Neut # (Auto) 5.6, Lymph # (Auto) 1.8, Jenkins # (Auto) 0.4, Eos # (Auto) 0.2, Baso # (Auto) 0.0, Sodium 139, Potassium 4.2, Chloride 107, Carbon Dioxide 25, Anion Gap 11.2, BUN 16, Creatinine 0.70, Estimated Creat Clear 51, Estimated GFR 82, Est GFR ( Amer) 100, Glucose 106 H, Lactate 1.6, Calcium 9.3, Total Bilirubin 0.6, AST 34, ALT 36, Alkaline Phosphatase 184 H, Total Protein 7.3, Albumin 4.1, Globulin 3.2, Albumin/Globulin Ratio 1.3, Lipase 214 11/17/23 21:50: Urine Color Yellow, Urine Appearance Clear, Urine pH 7.0, Ur Specific Talmage <= 1.005, Urine Protein Negative, Urine Glucose (UA) Negative, Urine Ketones Negative, Urine Blood Negative, Urine Nitrate Negative, Urine Bilirubin Negative, Urine Urobilinogen 0.2, Ur Leukocyte Esterase Negative, Urine RBC None, Urine WBC None, Ur Squamous Epith Cells 3-5, Urine Bacteria None 11/17/23 19:30 11/17/23 19:30 Orders (Tests/Meds): ED MEDICATIONS Discontinued Medications Generic Name Dose Route Start Last Admin Trade Name Freq PRN Reason Stop Dose Admin Sodium Chloride 1,000 mls @ 999 mls/hr 11/17/23 20:15 11/17/23 20:10 Sod Chlor 0.9% 1000ml Bag IV 11/17/23 21:15 999 mls/hr .Q1H1M RACHEL Administration Iopamidol 75 ml 11/17/23 20:57 11/17/23 20:58 Iopamidol-370 (76%);100ml Bottle IV 11/17/23 20:58 75 ml ONCE ONE Administration Morphine Sulfate 4 mg 11/17/23 20:04 11/17/23 20:11 Morphine 4mg/Ml Syringe IV 11/17/23 20:05 4 mg ONCE ONE Administration Ondansetron HCl 4 mg 11/17/23 20:04 11/17/23 20:10 Ondansetron 4mg/2ml Vial IV 11/17/23 20:05 4 mg ONCE ONE Administration Oxycodone HCl 5 mg 11/17/23 22:49 11/17/23 22:51 Oxycodone 5mg Immediate Release Tablet PO 11/17/23 22:50 5 mg ONCE ONE Administration Sodium Chloride 10 ml 11/17/23 20:57 11/17/23 20:58 Sodium Chloride 0.9% 10ml Syr (Rad Only) IV 12/17/23 20:56 10 ml NEEDED PRN Administration Maintain IV Site ORDERS Category Date Time Status CT abdomen w con Stat Cat Scan 11/17/23 20:04 Completed XR chest portable Stat Exams 11/17/23 20:04 Completed Complete Blood Count Auto Diff Stat Lab 11/17/23 19:30 Completed Comprehensive Metabolic Panel Stat Lab 11/17/23 19:30 Completed Lactic Acid Stat Lab 11/17/23 19:30 Completed Lipase Stat Lab 11/17/23 19:30 Completed Urinalysis and Microscopic Stat Lab 11/17/23 21:50 Completed ECG Data Tracing #1: I reviewed this ECG and interpreted as documented below: Normal sinus rhythm, normal axis, normal intervals, no noted ST elevation Medical Decision Narrative: Patient with history and exam per above presenting for evaluation of abdominal pain Diagnoses considered include acute on chronic abdominal pain, small bowel obstruction, pancreatitis, electrolyte abnormality, ACS ED workup and treatment included: As above Labs were independently interpreted by me, significant for no noted leukocytosis, no noted anemia, CBC nonactionable, coags within normal limits, CMP nonactionable, urinalysis without UTI Imaging was independently visualized and interpreted by me, significant for no noted acute intra-abdominal or pelvic abnormalities on my review. Please refer to radiology report for full details. My clinical impression at this time is most consistent with acute on chronic abdominal pain. On reassessment patient remains hemodynamically stable. States she was having some ongoing abdominal pain. Was given oral oxycodone. On reassessment patient medically clear for discharge and outpatient follow-up with primary care provider. Patient agreeable with this plan. I discussed my clinical impression with patient and answered all questions. At this time, the evidence for any other entities in the differential is insufficient to warrant any further testing or ED observation. This was explained to the patient. The patient was advised that persistent or worsening symptoms require further evaluation. Critical Care Critical Care Time Critical Care Time: No
[2023-11-17] MEDS: IOPAMIDOL-370 (76%);100ML BOTTLE 75 ML IV (20:58)
[2023-11-17] MEDS: SODIUM CHLORIDE 0.9% 10ML SYR (RAD ONLY) 10 ML IV (20:58)
--- NOTE | 2023-11-17 21:44 | PC.NURSE ---
Pt up to restroom for UA, asking for more pain medication, will address with Dr Fine
[2023-11-17 21:56] LABS: Microscopic, Urine URINE MICROSCOPIC (MICROSCOPIC)
[2023-11-17 21:57] LABS: Appearance,Urine CLEAR (Clear); Bilirubin,Urine Negative (Negative); Blood, Urine Negative (Negative); Color,Urine YELLOW (Yellow); Glucose,Urine (UA) Negative (Negative); Ketones,Urine Negative (Negative); Leukocyte Esterase,Urine Negative (Negative); Nitrate,Urine Negative (Negative); Protein,Urine Negative (Negative); Specific Gravity, Urine <= 1.005 (1.005-1.030); Urobilinogen,Urine 0.2 EU/dl (0.2)
--- NOTE | 2023-11-17 22:20 | PC.NURSE ---
Dr Rangel aware pt has asked for more medication
[2023-11-17] MEDS: OXYCODONE 5MG IMMEDIATE RELEASE TABLET 5 MG PO (22:51)
[2023-11-17 23:01] VITALS: BP 138/66; PULSE 71; RESP 16; TEMP 36.5; O2SAT 99
== END 2023-11-17 23:03 | disposition home or self-care (01) ==
PROVIDERS: Emergency Provider Student in an Organized Health Care Education/Training Program; PCP Internal Medicine
DX: R10.13 Epigastric pain (principal); I10 Essential (primary) hypertension; E78.5 Hyperlipidemia, unspecified; E03.9 Hypothyroidism, unspecified
CPT/HCPCS: 71045; 74160; 80053; 81001; 83605; 83690; 85025; 93005; 96361; 96374; 96375; 99285; J2270; J2405; J7030; Q9967

== ENCOUNTER 2023-12-14 09:30 | Outpatient (CLI) | payer MEDICARE, OTHER, SELFPAY ==
[2023-12-14 19:00] LABS: Cholesterol 232 mg/dl (140-200); HDL Cholesterol 77 mg/dl (40-60); Potassium 4.6 mmoL/L (3.5-5.1); Triglycerides 234 mg/dl (30-150); VLDL Cholesterol 47 mg/dL (0-40)
[2023-12-14 19:11] LABS: Direct LDL Cholesterol 91.78 mg/dL (100-129)
[2023-12-14 19:13] LABS: 25-OH Vitamin D, Total 23.3 ng/mL (30-100)
== END 2023-12-14 23:59 | disposition home or self-care (01) ==
LOC: LAB.DROPOF 12-17 12:35
PROVIDERS: PCP Internal Medicine; Visit Provider Internal Medicine
DX: I10 Essential (primary) hypertension (principal); E55.9 Vitamin D deficiency, unspecified
CPT/HCPCS: 80061; 82306; 84132

== ENCOUNTER 2023-12-19 12:25 | Outpatient (CLI) | payer MEDICARE, OTHER, SELFPAY ==
--- NOTE | 2023-12-19 12:29 | XR_ITS ---
FINAL REPORT CLINICAL HISTORY: Injury of left ankle COMPARISON: None FINDINGS: LEFT ANKLE 3 views of the left ankle were obtained. There is no acute fracture or dislocation. The mortise is intact. Visualized joint spaces are normally aligned. There is diffuse soft tissue edema about the ankle. Orthopedic screws are noted at the base of the first metatarsal. IMPRESSION: Soft tissue edema without acute bony abnormality. Reviewed, Interpreted and Dictated by Celestine Jones MD Transcribed by Manjula Taylor Authenticated and [facility]
== END 2023-12-19 23:59 | disposition home or self-care (01) ==
LOC: RAD 12:27
PROVIDERS: PCP Internal Medicine; Visit Provider Internal Medicine
DX: S99.912A Unspecified injury of left ankle, initial encounter (principal)
CPT/HCPCS: 73610

== ENCOUNTER 2023-12-21 18:49 | Emergency (ER) | payer MEDICARE, OTHER, SELFPAY ==
[2023-12-21 18:51] VITALS: BP 142/61; PULSE 87; RESP 18; TEMP 36.8; O2SAT 100; BMI 25.6
--- NOTE | 2023-12-21 19:17 | ED_ITS ---
<Statement entered by Greta Muse MD - 12/21/23 23:41> I was consulted by the LV, and we discussed the complexity of problems being addressed. I approved the treatment and management plan for this patient's care in the emergency department, thus performing a substantive portion of the medical decision making. Greta Muse MD Discharge Plan Disposition Patient Disposition: Home, Self-Care Condition: Good Prescriptions Prescriptions: New hydrocodone-acetaminophen 5-325 mg tablet 1 tab PO Q6H PRN (Reason: pain) Qty: 10 0RF No Action cholecalciferol (vitamin D3) 62.5 mcg (2,500 unit) capsule 62.5 mcg PO DAILY 90 Days Qty: 90 2RF promethazine 12.5 mg tablet 12.5 mg PO TID duloxetine 60 mg capsule,delayed release(DR/EC) 60 mg PO ONCE aspirin [Adult Low Dose Aspirin] 81 mg tablet,delayed release (DR/EC) 81 mg PO DAILY oxycodone 10 mg tablet 10 mg PO .6 TIMES A DAY MDD no more than 6/day PRN (Reason: pain) 30 Days Qty: 180 0RF tizanidine 4 mg tablet 4 mg PO TID PRN (Reason: muscle spasticity) 30 Days Qty: 90 1RF hydromorphone 4 mg tablet 4 mg PO Q4H PRN (Reason: breakthrough pain, severe) Qty: 60 0RF amlodipine 5 mg tablet 5 mg PO HS Qty: 90 4RF sulfamethoxazole-trimethoprim 400-80 mg tablet 1 tab PO DAILY Qty: 30 0RF furosemide [Lasix] 40 mg tablet 40 mg PO DAILY PRN (Reason: swelling) Qty: 30 0RF acyclovir 400 mg tablet See Rx Instructions .ROUTE .COMPLEX Qty: 60 3RF Dose Instruction: TAKE 1 TABLET BY MOUTH 2 (TWO) TIMES A DAY. Rx Instructions: TAKE 1 TABLET BY MOUTH 2 (TWO) TIMES A DAY. levothyroxine 25 mcg tablet See Rx Instructions .ROUTE .COMPLEX Qty: 90 1RF Dose Instruction: TAKE 1 TABLET BY MOUTH DAILY FOR HYPOTHYROIDISM Rx Instructions: TAKE 1 TABLET BY MOUTH DAILY FOR HYPOTHYROIDISM atorvastatin 20 mg tablet See Rx Instructions .ROUTE .COMPLEX Qty: 90 0RF Dose Instruction: TAKE 1 TABLET BY MOUTH DAILY. Rx Instructions: TAKE 1 TABLET BY MOUTH DAILY. ferrous sulfate 325 mg (65 mg iron) tablet 325 mg PO DAILY Qty: 30 3RF diphenoxylate-atropine 2.5-0.025 mg tablet 1 tab PO TID PRN (Reason: diarrhea) 30 Days Qty: 90 4RF Eliquis 5 mg tablet 5 mg PO BID 90 Days Qty: 180 0RF losartan 50 mg tablet 75 mg PO DAILY Referrals Follow up/Referrals: Jac Rivas DO [Staff Physician] - See instructions Timothy Granda DO [Primary Care Provider] - See instructions Activity Restrictions/Add. Instructions Additional Instructions/Restrictions: Wear walking boot when you are up walking around. Please consult Ortho for further care and management of your fracture. Clinical Impressions Clinical Impression: Ankle fracture, lateral malleolus, closed Instructions Patient Instructions: Ankle Fracture Print Language Print Language: Syriac Discharge ED Provider: Greta Muse General Adult HPI General Chief complaint: Extremity Injury, Lower Stated complaint: AO1 /20 LT ankle inj Time Seen by Provider: 12/21/23 18:53 History of Present Illness HPI narrative: This is a 73-year-old female who presents to the ED today after she fell into a hole in the yard on Sunday. She injured her left ankle. She has had swelling and pain since. She did have an x-ray but her x-rays were not back as of yesterday when she called her primary care office. She is still having increased swelling and pain. Most of the pain is left ankle. Related Data Home Medications ?Medication ?Instructions ?Recorded ?Confirmed aspirin 81 mg tablet,delayed 81 mg PO DAILY 04/05/23 12/14/23 release (Adult Low Dose Aspirin) losartan 50 mg tablet 75 mg PO DAILY 07/22/23 12/14/23 promethazine 12.5 mg tablet 12.5 mg PO TID 10/11/23 12/14/23 duloxetine 60 mg capsule,delayed 60 mg PO ONCE 10/25/23 12/14/23 release Previous Rx's ?Medication ?Instructions ?Recorded furosemide 40 mg tablet (Lasix) 40 mg PO DAILY PRN swelling #30 04/09/23 tabs cholecalciferol (vitamin D3) 62.5 62.5 mcg PO DAILY 90 days #90 caps 04/10/23 mcg (2,500 unit) capsule acyclovir 400 mg tablet See Rx Instructions .Route 05/22/23 .COMPLEX #60 tabs atorvastatin 20 mg tablet See Rx Instructions .Route 06/12/23 .COMPLEX #90 tabs levothyroxine 25 mcg tablet See Rx Instructions .Route 06/12/23 .COMPLEX #90 tabs ferrous sulfate 325 mg (65 mg 325 mg PO DAILY #30 tabs 10/25/23 iron) tablet diphenoxylate-atropine 2.5 1 tab PO TID PRN diarrhea 30 days 11/07/23 mg-0.025 mg tablet #90 tabs apixaban 5 mg tablet (Eliquis) 5 mg PO BID 90 days #180 tabs 11/26/23 amlodipine 5 mg tablet 5 mg PO HS hypertension #90 tabs 12/10/23 hydromorphone 4 mg tablet 4 mg PO Q4H PRN breakthrough pain, 12/10/23 severe #60 tabs oxycodone 10 mg tablet 10 mg PO .6 TIMES A DAY PRN pain 12/10/23 30 days #180 tabs sulfamethoxazole 400 1 tab PO DAILY #30 tabs 12/10/23 mg-trimethoprim 80 mg tablet tizanidine 4 mg tablet 4 mg PO TID PRN muscle spasticity 12/10/23 30 days #90 tabs hydrocodone 5 mg-acetaminophen 325 1 tab PO Q6H PRN pain #10 tabs 12/21/23 mg tablet Allergies Allergy/AdvReac Type Severity Reaction Status Date / Time ciprofloxacin [From Cipro] Allergy Intermediate Muscle Pain Verified 12/14/23 09:34 levofloxacin [From Levaquin] AdvReac Verified 12/14/23 09:34 [facility] Disclaimer: The information contained in this section may have been updated after the patient was seen, as this information can be updated by other users. Medical History Colostomy in place Perforated sigmoid colon Elevated liver enzymes Ileus Abnormal electrocardiogram [ECG] [EKG] Abdominal pain TIP (acute kidney injury) Hypothyroidism IBS (irritable bowel syndrome) HLD (hyperlipidemia) HTN (hypertension), benign Hypokalemia C. difficile diarrhea Hypokalemia due to loss of potassium Surgical History H/O ileostomy History of total right hip replacement History of arthroscopy of left shoulder Family History Other Anemia Asthma Cancer Hyperlipidemia Social History Smoking Status: Never smoker second hand exposure: No alcohol intake: never current occupational status: retired Travel in the last 8 weeks: None household members: spouse housing: house current occupational exposures/hazards: No caffeine: No ROS Obtained: Yes Systems reviewed as appropriate & no additional complaints except as documented Constitutional Constitutional: Reports as per HPI Physical Exam General General appearance: alert and in distress Comment: Secondary to left ankle pain Head Head exam: atraumatic and normocephalic Eye Eye exam: Present normal appearance, PERRL and EOMI ENT ENT exam: Present normal exam, normal oropharynx and mucous membranes moist Neck Neck exam: Present normal inspection, full ROM and trachea midline Chest Chest inspection: Present normal inspection Respiratory Respiratory exam: Present normal lung sounds bilaterally Cardiovascular Cardiovascular exam: Present regular rate, normal rhythm, normal heart sounds, +S1 and +S2 Extremities Exam Extremities exam: Present tenderness, normal capillary refill, edema and joint swelling Neurological Exam Neurological exam: Present alert, oriented X3 and other (Gait affected by ankle pain) Skin Skin exam: Present warm, dry and intact Medical Decision Making Medical Records Screening: Per USPSTF and CDC recommendations, given the prevalence of disease in our region, it is our hospital?s policy to screen for HIV and viral Hepatitis for all patients aged 18 and over and those with ongoing risk factors. Beto Inquiry Pt receiving controlled substance: No Beto was queried for this patient: No Vital Signs: 12/21/23 18:51 Temperature 98.2 F Temperature Source Oral Pulse Rate [Right] 87 Respiratory Rate 18 Blood Pressure [Left Arm] 142/61 H Blood Pressure Mean [Left Arm] 88 Blood Pressure Source [Left Arm] Automatic Cuff 02 Sat by Pulse Oximetry 100 Oxygen Delivery Method Room Air Orders (Tests/Meds): ED MEDICATIONS Discontinued Medications Generic Name Dose Route Start Last Admin Trade Name Freq PRN Reason Stop Dose Admin Hydrocodone Bitart/Acetaminophen 1 tab 12/21/23 19:16 12/21/23 19:28 Hydrocodone/Apap 5/325 Mg Tablet PO 12/21/23 19:17 1 tab ONCE ONE Administration ORDERS Category Date Time Status Ankle XR - Left minimum 3 Views [XR ankle LT min 3V] Exams 12/21/23 19:21 Completed Stat Medical Decision Narrative: Insert review patient is a 73-year-old female presenting to the emergency department for evaluation of left ankle pain. Patient is [hemodynamically stable and nontoxic-appearing upon arrival, afebrile]. Differential diagnosis includes left ankle sprain versus fracture. Workup will be conducted with left ankle x-ray.. Initial inventions include [place] for pain. Initial workup reviewed by me [hematologic labs are remarkable for:]. [Imaging informally interpreted by me and remarkable for small fracture of the lateral malleolus. [Formal imaging read remarkable for fracture on the caudal aspect of the lateral malleolus. Upon repeat evaluation patient's pain has improved slightly after the hydrocodone. We will place in a walking boot for the nondisplaced fracture of her lateral malleolus. Critical Care Critical Care Time Critical Care Time: No
--- NOTE | 2023-12-21 19:21 | XR_ITS ---
PROCEDURE INFORMATION: Exam: XR Left Ankle Exam date and time: 12/21/2023 7:21 PM Age: 73 years old Clinical indication: Pain; Ankle; Left; Patient HX: Prior xray on 12/19/23; Additional info: Pain and swelling/repeat exam TECHNIQUE: Imaging protocol: Radiologic exam of the left ankle. Views: 3 or more views. COMPARISON: CR XR ANKLE LT MIN 3V 12/19/2023 12:31 PM FINDINGS: Bones/joints: Lucency through the caudal aspect of the lateral malleolus possibly representing a nondisplaced fracture. The ankle mortise is intact. Threaded screws within base of 1st metatarsal. Soft tissues: Mild generalized soft tissue swelling. IMPRESSION: 1. Possible nondisplaced fracture of the caudal aspect of the lateral malleolus. 2. Soft tissue swelling.
[2023-12-21] MEDS: HYDROCODONE/APAP 5/325 MG TABLET 1 TAB PO (19:28)
--- NOTE | 2023-12-21 19:28 | PC.NURSE ---
In to medicate pt, pt states i was hoping for more than just a pain pill Educated pt on pain medications, verbalized understanding, Spoke with provider, no new orders noted. Spoke with pt again she reports sherman had that before and it won't do much Educated on other pain interventions, verbalized understanding and agreeable to take PO pain medication
[2023-12-21 21:14] VITALS: BP 128/63; PULSE 82; RESP 18; TEMP 36.6; O2SAT 98
== END 2023-12-21 21:16 | disposition home or self-care (01) ==
PROVIDERS: Emergency Provider Student in an Organized Health Care Education/Training Program; PCP Internal Medicine
DX: S82.62XA Displaced fracture of lateral malleolus of left fibula, initial encounter for closed fracture (principal); E03.9 Hypothyroidism, unspecified; I10 Essential (primary) hypertension; E78.5 Hyperlipidemia, unspecified; W17.2XXA Fall into hole, initial encounter; Y92.9 Unspecified place or not applicable
CPT/HCPCS: 73610; 99283

== ENCOUNTER 2024-01-23 15:22 | Outpatient (CLI) | payer MEDICARE, OTHER, SELFPAY ==
--- NOTE | 2024-01-23 15:23 | XR_ITS ---
FINAL REPORT CLINICAL HISTORY: .screening FINDINGS: Using L1-4, the bone mineral density of the spine is 1.092 g/cm2, corresponding to T-score of 0.4. Using the distal third, the bone mineral density of the left ulna is 0.589 g/cm2, corresponding to a T-score of -1.7 IMPRESSION: Normal bone mineral density of the lumbar spine. Osteopenic bone mineral density of the left forearm. NOTE: T-score: Standard deviation compared with peak bone mass of young adult mean. *Following the recommendations of the International Society of Bone densitometry, classification of hip BMD is based on the lower of two T-scores; total hip or femoral neck. Reviewed, Interpreted and Dictated by Celestine Jones MD Transcribed by Nano Bennett Authenticated and [facility]
== END 2024-01-23 23:59 | disposition home or self-care (01) ==
LOC: RAD 15:23
PROVIDERS: PCP Internal Medicine; Visit Provider Internal Medicine
DX: M81.0 Age-related osteoporosis without current pathological fracture (principal); Z91.89 Other specified personal risk factors, not elsewhere classified
CPT/HCPCS: 77080

== ENCOUNTER 2024-01-29 15:03 | Outpatient (CLI) | payer MEDICARE, OTHER, SELFPAY ==
--- NOTE | 2024-01-29 15:06 | XR_ITS ---
PROCEDURE INFORMATION: Exam: XR Left Ankle Exam date and time: 01/29/2024 3:07 PM Age: 73 years old Clinical indication: Pain; Ankle; Left; Additional info: Left ankle FX f/u TECHNIQUE: Imaging protocol: Radiologic exam of the left ankle. Views: 3 or more views. COMPARISON: CR XR ANKLE LT MIN 3V 12/21/2023 7:21 PM FINDINGS: Bones/joints: There is a healing fracture of the lateral malleolus. No additional fracture or dislocation. No aggressive osseous lesion. Soft tissues: There is diffuse soft tissue swelling. Soft tissues otherwise within normal limits. IMPRESSION: There is a healing fracture of the lateral malleolus.
== END 2024-01-29 23:59 | disposition home or self-care (01) ==
LOC: RAD 15:04
PROVIDERS: PCP Internal Medicine; Visit Provider Orthopaedic Surgery
DX: S82.63XA Displaced fracture of lateral malleolus of unspecified fibula, initial encounter for closed fracture (principal)
CPT/HCPCS: 73610

== ENCOUNTER 2024-05-09 14:49 | Outpatient (CLI) | payer MEDICARE, OTHER, SELFPAY ==
[2024-05-10 10:13] LABS: Cancer Antigen (CA) 125 9.9 U/mL (0.0-38.1)
== END 2024-05-09 23:59 | disposition home or self-care (01) ==
LOC: LAB 14:51
PROVIDERS: PCP Internal Medicine; Visit Provider Obstetrics & Gynecology
DX: R10.9 Unspecified abdominal pain (principal)
CPT/HCPCS: 36415; 86316

== ENCOUNTER 2024-07-03 12:26 | Outpatient (CLI) | payer MEDICARE, OTHER, SELFPAY ==
[2024-07-03 17:05] LABS: Basophils % 0.7 % (0.1-2.0); Eosinophils # 0.2 K/mm3 (0.0-0.4); Eosinophils % 2.6 % (0.1-12.0); Hematocrit 39.5 % (37.0-47.0); Hemoglobin 12.3 g/dL (12.2-16.2); Lymphocytes # 1.7 K/mm3 (0.7-4.5); Lymphocytes % 27.2 % (10-50); Mean Corpuscular HGB Conc 31.1 g/dL (31.8-35.4); Mean Corpuscular Hemoglobin 29.4 pg (27.0-31.2); Mean Corpuscular Volume 94.3 fl (81-99); Monocytes # 0.4 K/mm3 (0.1-1.0); Neutrophils # 3.8 K/mm3 (1.8-7.8); Neutrophils % 62.2 % (37.0-80.0); Platelet Count 375 K/mm3 (142-424); Red Blood Count 4.19 M/mm3 (4.20-5.40); Red Cell Distribution Width 14.6 % (11.5-17.5); White Blood Count 6.1 K/mm3 (4.8-10.8)
[2024-07-03 18:07] LABS: Alanine Aminotransferase 16 U/L (12-78); Albumin Level 3.9 g/dl (3.5-5.0); Albumin/Globulin Ratio 1.3 (1.1-1.8); Alkaline Phosphatase 144 U/L (38-126); Anion Gap 13.5 mEq/L (5-15); Aspartate Amino Transferase 24 U/L (14-36); Bilirubin,Total 0.6 mg/dl (0.2-1.3); Blood Urea Nitrogen 14 mg/dl (7-17); Calcium 9.6 mg/dl (8.4-10.2); Carbon Dioxide 17 mmol/L (22.0-30.0); Chloride 107 mmol/L (98-107); Chol/HDL Ratio 3.2 (1-3.5); Cholesterol 198 mg/dl (140-200); Estimated Glomerular Filt Rate 71 ml/min (>60); GFR (African American) 85 ML/MIN (>60); Globulin 2.9 g/dL (1.3-3.2); Glucose 100 mg/dl (74-100); HDL Cholesterol 61 mg/dl (40-60); Potassium 4.5 mmoL/L (3.5-5.1); Sodium 133 mmol/L (136-145); Total Protein,Serum 6.8 g/dl (6.3-8.2); Triglycerides 311 mg/dl (30-150); VLDL Cholesterol 62 mg/dL (0-40)
[2024-07-03 18:17] LABS: Direct LDL Cholesterol 76.68 mg/dL (100-129)
[2024-07-03 18:29] LABS: 25-OH Vitamin D, Total 20.4 ng/mL (30-100)
--- OUTSIDE RECORDS SUMMARY | 2024-07-10 19:36 | XMS_ITS | Clinical Summary ---
Author Organization [facility] Address [address] [place] [address] Phone Care Team Providers Care Handbell Choir Director Name Role Phone Tosin VARGAS, Chandra Flores Unavailable [phone] Davidson Milligan MD Unavailable [phone] Timothy Granda Primary Care Provider Unavailabl e Reason for Visit and Chief Complaint The Chief Complaint is: Left shoulder pain Problems Includes: Problems addressed during this encounter and other active Problems Current Visit Onset Date Resolved Date Provider Conditio n Status Joint Pain, Localized in the Left Shoulder 03/16/2023 Funmi Robles PA-C Active Last Documented On 3 10:30AM ; [facility], [facility] Past Visits Onset Date Resolved Date Provider Condition Status Joint Pain in the Left Knee 03/31/2022 Jesus Espinosa MD Active Last Documented On 2 10:01AM ; [facility], [facility] Joint Pain in the Right Knee 02/12/2019 Timothy Foster MD Active Last Documented On 9 10:35AM ; [facility], [facility] Joint Pain in the Right Hip 02/12/2019 Timothy wheeler MD Active Last Documented On 9 10:35AM ; [facility], [facility] Joint Pain, Localized in the Shoulder 05/29/2018 Bautista Luis MD Active Last Documented On 9 10:31AM ; [facility], [facility] Plan of Treatment Fall Risk Assessment: This patient has been identified as a fall risk. Balance/gait along with postural blood pressure, vision and home fall hazards have been assessed. Medications have been reviewed, and recommendations made with regard to contributing factors for future falls. Plan of care: Consideration of vitamin D supplementation along with balance and strength training with consideration for formal physical therapy has been discussed with the patient. - Last Documented On 03/16/2023 11:26AM ; [facility] she had progressive pain over the last couple of years. This is become constant at this point from her recollection she thinks she probably had this about 20 years ago. We did replace her right shoulder which is doing well. I recommend we work this up for infection she has had a couple of septic incidences over the last 2 years from other issues. I did talk to her about P acnes infections as well. I recommended aspiration of the left shoulder hold for 14 days for P acnes. Also get a CT scan and lab order for ESR CRP and CBC to see Dr. Whiting 2 weeks after the aspiration - Last Documented On 03/16/2023 11:26AM ; [facility] Pending Tests Order Diagnosis Results Due Ordering Richardson juddvider Radiology - CT Scan Shoulder Overweight 03/30/23 Bari Robles PA-C Last Documented On 3 11:26AM ; [facility] Future Appointments Date Time Location Provi kiera Follow Up 08/18/2024 1:00PM [facility] RAFIQ Larson PA-C Last Documented On 5 1:45PM ; [facility], [facility] Instructions to patient Lose weight Last Documented On 3 10:32AM ; [facility], [facility] Assessments Includes: Assessments from this encounter Findings - Overweight - Last Documented On 03/16/2023 11:26AM ; [facility] left total shoulder - Last Documented On 03/16/2023 11:26AM ; [facility], [facility] Instructions Includes: Instructions from this encounter Instructions to patient Lose weight Last Documented On 3 10:32AM ; [facility], [facility] Medical Equipment - Implanted Devices Includes: Current Devices No Medical Equipment Recorded Medications Includes: Medications discussed during this encounter and other current Medications Current Medications (continue as prescribed) Acyclovir 400 MG Oral Tablet 01/27/2024 Provider: Diagnosis: Last Documented On 4 2:44PM By Karen Ornelas ; [facility] oxyCODONE HCl 10 MG Oral Tablet 01/22/2024 Provider: Diagnosis: Last Documented On 4 2:44PM By Karen Ornelas ; [facility] Dicyclomine HCl 10 MG Oral Capsule 01/22/2024 Provid er: CASTILLO ESPINO II, MD Diagnosis: Last Documented On 4 2:44PM By Karen Ornelas ; [facility] tiZANidine HCl 4 MG Oral Tablet 01/18/2024 Provider: Diagnosis: Last Documented On 4 2:44PM By Karen Ornelas ; [facility] Sulfamethoxazole-Trimethoprim 400-80 MG Oral Tablet Provider: Diagnosis: Last Documented On 4 2:44PM By Karen Ornelas ; [facility] DULoxetine HCl 60 MG Oral Capsule Delayed Releas e Particles 01/18/2024 Provider: Diagnosis: Last Documented On 4 2:44PM By Karen Ornelas ; [facility] HYDROmorphone HCl 4 MG Oral Tablet 01/08/2024 Provid er: Diagnosis: Last Documented On 4 2:44PM By Karen Ornelas ; [facility] Fluticasone-Salmeterol 100-5 0 MCG/ACT Inhalation Aerosol Powder Breath Activated 01/08/2024 Provider: Diagnosis: Last Documented On 4 2:44PM By Karen Ornelas ; [facility] Atorvastatin Calcium 40 MG Oral Tablet 01/08/2024 Pr ovider: Diagnosis: Last Documented On 4 2:44PM By Karen Ornelas ; [facility] Levothyroxine Sodium 25 MCG Oral Tablet 12/31/2023 P dionicioder: Diagnosis: Last Documented On 4 2:44PM By Karen Ornelas ; [facility] Eliquis 5 MG Oral Tablet 12/31/2023 Provider: Diagnosis: Last Documented On 4 2:44PM By Karen Ornelas ; [facility] Atorvastatin Calcium 20 MG Oral Tablet 12/31/2023 Pr ovider: Diagnosis: Last Documented On 4 2:44PM By Karen Ornelas ; [facility] amLODIPine Besylate 5 MG Oral Tablet 12/10/2023 Prov ider: Diagnosis: Last Documented On 4 2:44PM By Karen Ornelas ; [facility] Albuterol Sulfate 108 (90 Ba se) MCG/ACT Inhalation Aerosol Powder Breath Activated 06/15/2022 Provider: Diagnosis: Last Documented On 3 8:21AM By Merari Parson ; [facility] Cymbalta 20 MG Oral Capsule Delayed Release Particles 06/15/2022 Provider: Diagnosis: Last Documented On 3 8:21AM By Merari Parson ; [facility] Estradiol 0.1 MG/GM Vaginal Cream 06/15/2022 Provide r: Diagnosis: Last Documented On 3 9:04AM By Merari Parson ; [facility] Retin-A 0.1% External Cream 06/15/2022 Provider: Diagnosis: Last Documented On 3 9:03AM By Merari Parson ; [facility] Nystatin-Triamcinolone 135354-1.1 UNIT/GM-% External C ream 06/15/2022 Provider: Diagnosis: Last Documented On 3 9:02AM By Merari Parson ; [facility] Triamcinolone Acetonide 0.1% External Cream 06/15/2022 Provider: Diagnosis: Last Documented On 3 8:29AM By Merari Parson ; [facility] oxyCODONE HCl 10 MG Oral Tablet 06/15/2022 Provider: Diagnosis: Last Documented On 3 8:27AM By Merari Parson ; [facility] Losartan Potassium 50 MG Oral Tablet 06/15/2022 Prov ider: Diagnosis: Last Documented On 3 8:26AM By Merari Parson ; [facility] Fluticasone-Salmeterol 250-5 0 MCG/ACT Inhalation Aerosol Powder Breath Activated 06/15/2022 Provider: Diagnosis: Last Documented On 3 8:25AM By Merari Parson ; [facility] Diphenoxylate-Atropine 2.5-0.025 MG Oral Tablet 2022 Provider: Diagnosis: Last Documented On 3 8:22AM By Merari Parson ; [facility] Acyclovir 400 MG Oral Tablet 10/05/2020 Provider: Diagnosis: Last Documented On 1 3:19PM By Adele Trevino ; [facility] Past Medications on file oxyCODONE HCl 5 MG Oral Tablet 07/19/2022 - 07/29/2022 Provider: Jesus Zimmer MD Diagnosis: Take 1 tablet by mouth every 4-6 hrs for break through pain Last Documented On 3 11:00AM By Jesus Espinosa ; [facility] Meloxicam 15 MG Oral Tablet 07/03/2022 - 07/17/2022 Pr ovider: Jesus Espinosa MD Diagnosis: once a day Last Documented On 3 8:45AM By Barbara Correa ; [facility] Ondansetron HCl 4 MG Oral Tablet 06/30/2022 - 07/07/2022 Provider: Jesus Zimmer MD Diagnosis: 1 po q 6h prn nausea Last Documented On 3 1:35PM By Jesus Espinosa ; [facility] oxyCODONE HCl 5 MG Oral Tablet 06/30/2022 - 07/10/2022 Provider: Jesus Zimmer MD Diagnosis: Take 1 tablet by mouth every 4-6 hrs for break through pain Last Documented On 3 1:35PM By Jesus Espinosa ; [facility] Acetaminophen 500 MG Oral Tablet 06/30/2022 - 07/14/2022 Provider: Jesus Zimmer MD Diagnosis: Take 2 tablets by mouth every 8 hours Last Documented On 3 1:35PM By Jesus Espinosa ; [facility] Cefadroxil 500 MG Oral Capsule 06/30/2022 - 07/07/2022 Provider: Jesus Zimmer MD Diagnosis: Take 1 tablet by mouth every 12 hours for 7 days Last Documented On 3 1:35PM By Jesus Espinosa ; [facility] Aspirin EC 81 MG Oral Tablet Delayed Release 06/30/2022 - 08/11/2022 Provider: Jesus Espinosa MD Diagnosis: Take 1 tablet by mouth every 12 hours for 42 days post op Last Documented On 3 1:35PM By Jesus Espinosa ; [facility] Vitamin D3 50 MCG (1999) Oral Tablet 06/20/2022 - 07/20/2022 Provider: Diana ABDI Diagnosis: once a day Last Documented On 3 1:03PM By Diana Rosas ; [facility] cloNIDine HCl 0.1 MG Oral Tablet 10/05/2020 - 11/05/19 Provider: Diagnosis: Last Documented On 1 3:16PM By Adele Sawyer [facility] Atorvastatin Calcium 20 MG O ral Tablet 10/05/2020 - 11/04/2020 Provider: MADI CHAPIN MD Diagnosis: Last Documented On 1 3:18PM By Adele Trevino ; [facility] Medications Administered Includes: Administered Medications from this encounter No Administered Medications Recorded Vital Signs Includes: Vital Signs from this encounter Vital Name 03/16/2023 10:32A Height (in) 61 Weight (lb) 145 Body Mass Index 27.4 Body Surface Area 1.6 Note: hdv Last Documented: On 03/16/2023 10:32A M ; [facility] Results Includes: Results discussed during this encounter No Results Recorded For Specified Dates History of Present Illness Includes: History of Present Illness from this encounter HPI Farrah Atkinson is a 72 year old female. - Symptoms Catching. - Allergy list reviewed - Problem list reviewed - Medication list reviewed - Patient pain level from 1-10: 8 Pain is better with medication and rest. Pain is worse with motion, particularly pushing down - Yes, previous treatment. - History of Physical Therapy - History of Home Exercise - History of Chiropractic - History of Injections Medications used for this condition: Social History Description Last Updated No recent change in diet 03/16/2023 Last Documented On 3 11:26AM ; [facility] Not a current smoker. 03/16/2023 Last Documented On 3 11:26AM ; [facility] Tobacco non-user 02/17/2022 Last Documented On 3 10:32AM ; [facility] Caffeine use 10/05/2020 Last Documented On 3 10:32AM ; [facility] Exercising regularly 10/05/2020 Last Documented On 3 10:32AM ; [facility] No recent change in diet 10/05/2020 Last Documented On 3 10:32AM ; [facility] Not a current smoker. 10/05/2020 Last Documented On 3 10:32AM ; [facility] Not using alcohol 10/05/2020 Last Documented On 3 10:32AM ; [facility] Not using drugs 10/05/2020 Last Documented On 3 10:32AM ; [facility] Non-smoker 10/05/2020 Last Documented On 3 10:32AM ; [facility] Not a current smoker 05/29/2018 Last Documented On 3 10:32AM ; [facility] No tobacco use 05/29/2018 Last Documented On 3 10:32AM ; [facility] Smoking status : Former smoker 9 Last Documented On 3 10:32AM ; [facility] Procedures and Surgical History Includes: Procedures from this encounter Procedures Code Diagnosis Performing Provider Service L ocation Service Date use of tobacco assessment performed 1000F Last Documented On 3 10:32AM ; [facility] patient screened for future fall risk: documentation of any fall with injury in past year 1100F Last Documented On 3 10:32AM ; [facility] review of medications documented 1160F Last Documented On 3 10:32AM ; [facility], [facility] an X-ray was performed [id number] Last Documented On 3 10:33AM ; [facility] an MRI was performed [id number] Last Documented On 3 10:33AM ; [facility] Surgical History Last Updated Past Surgical History: 03/16/2023 Last Documented On 3 11:26AM ; [facility] Medical History Includes: Medical History addressed during this encounter Description Last Updated History of Anemia 03/16/2023 Last Documented On 3 11:26AM ; [facility] History of arthritis 03/16/2023 Last Documented On 3 11:26AM ; [facility] History of History of Blood Clots 2022 Last Documented On 3 11:26AM ; [facility] Anemia 10/05/2020 Last Documented On 3 10:32AM ; [facility] Arthritis 10/05/2020 Last Documented On 3 10:32AM ; [facility] History of Arthroscopy 10/05/2020 Last Documented On 3 10:32AM ; [facility] Recent immunization for flu 10/05/2020 Last Documented On 3 10:32AM ; [facility] Recent immunization for pneumococcal pne umonia 10/05/2020 Last Documented On 3 10:32AM ; [facility] Shoulder arthroplasty 10/05/2020 Last Documented On 3 10:32AM ; [facility] Total hip replacement 10/05/2020 Last Documented On 3 10:32AM ; [facility] Total knee arthroplasty 10/05/2020 Last Documented On 3 10:32AM ; [facility] arthroscopy ~total joint replacement ~hi gh cholesterol 05/29/2018 Last Documented On 3 10:32AM ; [facility] Arthritic joint problems 05/29/2018 Last Documented On 3 10:32AM ; [facility] History of depression 05/29/2018 Last Documented On 3 10:32AM ; [facility] History of hepatitis C 05/29/2018 Last Documented On 3 10:32AM ; [facility] Family History Includes: Family History addressed during this encounter Description Last Updated Family history of cancer 10/05/2020 Last Documented On 3 10:32AM ; [facility] Family history of osteoporosis Last Documented On 3 10:32AM ; [facility] Family history of thromboembolic disease 05/29/2018 Last Documented On 3 10:32AM ; [facility] Review of Systems Includes: Review of Systems from this encounter Systemic: Not feeling tired, no recent weight loss, and no recent weight gain. Head: No headache and no sinus pain. Eyes: No vision problems, no Cataracts, no Glasses/Contacts, and no Glaucoma. Otolaryngeal: No hearing loss and no tinnitus. Cardiovascular: No chest pain or discomfort, no palpitations, no Hypertension, and no High Cholesterol. Pulmonary: No daytime asthma symptoms and no chronic cough. No wheezing. Gastrointestinal: No heartburn and no abdominal pain. No Indigestion, no Acid Reflux, no Peptic Ulcer, no GI Stomach Bleed, and no Ulcers. Endocrine: No hot flashes, no muscle weakness, and no Diabetes. Hypothyroid. No Hyperthyroid. Hematologic: No easy bleeding. A tendency for easy bruising and Anemia. Musculoskeletal: Arthritis. No lower back pain. No soft tissue swelling. Pain localized to one or more joints. Neurological: No dizziness, no convulsions, and no numbness. Psychological: Anxiety. No emotional lability. Depression. No insomnia. Not crying for no reason. Skin: No dry skin. No Ulcers, no Scars, and no rash. Allergic and Immunologic: No complaint of seasonal allergic reaction. Mental Status Includes: Mental Status from this encounter Description Anxiety Functional Status Includes: Functional Status from this encounter No Functional Status Recorded Physical Exam Includes: Physical Exam from this encounter Allergies Includes: Active Allergies Substance Type Reaction Onset Date Resolved Date Statu s Levaquin Allergy 06/19/2022 Active Last Documented On 06/16/2024 12:48PM ; [facility] Note: joint pain- Major fluoroquinolones Allergy 09/04/2018 Ac tive Last Documented On 5 12:48PM ; [facility] Encounters Encounter Provider Location Date Check-In Time Check-Out Time Diagnosis Physician Specified Funmi Robles PA-C [facility] 03/16/20 23 10:22AM 11:03AM Overweight Insurance Includes: Active Insurance Policies Plan Name Member ID Group # Subscriber Relationship Effect sherman Dates 1 - Medicare Part B [facility] [id number] Farrah Atkinson Self 4 - Unknown 2 - [employer] [id number] Farrah Lopez Cathyalli Self 05/03/2019 - Unknown Clinical Notes Includes: Clinical Notes from this encounter * Progress note Date Encounter Last Documented by 03/16/2023 Physician Specified Last documen jami on 03/16/2023; 11:26 AM, Funmi Robles PA-C; [facility] Active Problems & Conditions - Joint Pain in the Left Knee - Joint Pain in the Right Hip - Joint Pain in the Right Knee - Joint Pain, Localized in the Left Shoulder - Joint Pain, Localized in the Shoulder Chief Complaint The Chief Complaint is: Left shoulder pain. Referred Here Referred by. History of Present Illness Farrah Atkinson is a 72 year old female. - Symptoms Catching. - Allergy list reviewed - Problem list reviewed - Medication list reviewed - Patient pain level from 1-10: 8 Pain is better with medication and rest. Pain is worse with motion, particularly pushing down - Yes, previous treatment. - History of Physical Therapy - History of Home Exercise - History of Chiropractic - History of Injections Medications used for this condition: Current Medication - Acyclovir 400 MG Oral Tablet take as directed 0 days, 0 refills - Acyclovir 400 MG Oral Tablet 30 days, 0 refills - Albuterol Sulfate 108 (90 Base) MCG/ACT Inhalation Aerosol Powder Breath Activated take as directed 0 days, 0 refills - amLODIPine Besylate 10 MG Oral Tablet 90 days, 0 refills - amLODIPine Besylate 5 MG Oral Tablet 90 days, 0 refills - Atorvastatin Calcium 20 MG Oral Tablet 30 days, 0 refills - Cephalexin 500 MG Oral Capsule 7 days, 0 refills - cloNIDine HCl 0.1 MG Oral Tablet 30 days, 0 refills - Cymbalta 20 MG Oral Capsule Delayed Release Particles take as directed 0 days, 0 refills - Diphenoxylate-Atropine 2.5-0.025 MG Oral Tablet take as directed 0 days, 0 refills - Diphenoxylate-Atropine 2.5-0.025 MG Oral Tablet 30 days, 0 refills - Eliquis 5 MG Oral Tablet 30 days, 0 refills - Estradiol 0.1 MG/GM Vaginal Cream take as directed 0 days, 0 refills - Fluticasone-Salmeterol 250-50 MCG/ACT Inhalation Aerosol Powder Breath Activated take as directed 0 days, 0 refills - Levothyroxine Sodium 25 MCG Oral Tablet 90 days, 0 refills - Losartan Potassium 50 MG Oral Tablet take as directed 0 days, 0 refills - Nystatin-Triamcinolone 662567-0.1 UNIT/GM-% External Cream take as directed 0 days, 0 refills - oxyCODONE HCl 10 MG Oral Tablet take as directed 0 days, 0 refills - oxyCODONE HCl 10 MG Oral Tablet 30 days, 0 refills - OxyCONTIN 20 MG Oral Tablet ER 12 Hour Abuse-Deterrent 30 days, 0 refills - Potassium Chloride Amy ER 20 MEQ Oral Tablet Extended Release 90 days, 0 refills - Potassium Chloride Amy ER 20 MEQ Oral Tablet Extended Release 30 days, 0 refills - Retin-A 0.1% External Cream take as directed 0 days, 0 refills - Sulfamethoxazole-Trimethoprim 400-80 MG Oral Tablet 30 days, 0 refills - Triamcinolone Acetonide 0.1% External Cream take as directed 0 days, 0 refills Past Medical/Surgical History Reported: Medical: Arthritic joint problems. Immunization History: Recent immunization for flu and for pneumococcal pneumonia. Diagnoses: History of Blood Clots. Anemia. Anemia. Hepatitis C. Arthritis. Arthritis. Depression Arthroscopy total joint replacement high cholesterol. Surgical: - Past Surgical History: - History of Arthroscopy - Shoulder arthroplasty - Total hip replacement - Total knee arthroplasty Social History Not a current smoker. Not a current smoker. Current diet: No recent change in diet. No recent change in diet. Caffeine use: Caffeine use. Tobacco use: No tobacco use and not a current smoker. Tobacco non-user and non-smoker. Smoking status: Former smoker. Alcohol: Not using alcohol. Drug Use: Not using drugs. Habits: Exercising regularly. Allergies - fluoroquinolones - Levaquin Family History Cancer Thromboembolic disease Osteoporosis Review Of Systems Systemic: Not feeling tired, no recent weight loss, and no recent weight gain. Head: No headache and no sinus pain. Eyes: No vision problems, no Cataracts, no Glasses/Contacts, and no Glaucoma. Otolaryngeal: No hearing loss and no tinnitus. Cardiovascular: No chest pain or discomfort, no palpitations, no Hypertension, and no High Cholesterol. Pulmonary: No daytime asthma symptoms and no chronic cough. No wheezing. Gastrointestinal: No heartburn and no abdominal pain. No Indigestion, no Acid Reflux, no Peptic Ulcer, no GI Stomach Bleed, and no Ulcers. Endocrine: No hot flashes, no muscle weakness, and no Diabetes. Hypothyroid. No Hyperthyroid. Hematologic: No easy bleeding. A tendency for easy bruising and Anemia. Musculoskeletal: Arthritis. No lower back pain. No soft tissue swelling. Pain localized to one or more joints. Neurological: No dizziness, no convulsions, and no numbness. Psychological: Anxiety. No emotional lability. Depression. No insomnia. Not crying for no reason. Skin: No dry skin. No Ulcers, no Scars, and no rash. Allergic and Immunologic: No complaint of seasonal allergic reaction. Physical Findings - Vitals taken 03/16/2023 10:32 am hdv Height 61 in Weight 145 lbs Body Mass Index 27.4 kg/m2 Body Surface Area 1.6 m2 General Exam: The patient is awake and alert. No acute distress. Normal mood and affect for age. Well groomed and nourished Neuro: Sensation was intact to light touch over the extremity. Vascular: +2 radial pulses. No edema. Derm: No signs of active infection. No acute skin changes. Musculoskeletal: Normal gait and station. No muscle atrophy. No joint effusion. No muscle or bony deformity active forward flexion is about 90- with pain there is no significant swelling or other changes at the shoulder grossly Tests x-rays three-view of the left shoulder shows glenoid erosion from previous total shoulder arthroplasty. I do not see any loosening in the humeral component Assessment - Overweight left total shoulder Previous Tests Imaging: X-Ray: An X-ray was performed. MRI Scan: An MRI was performed. Counseling/Education - Lose weight Plan StartCited - Overweight Radiology/CT Scan: Shoulder Instructions: LEFT SHOULDER CT SCAN EndCited Fall Risk Assessment: This patient has been identified as a fall risk. Balance/gait along with postural blood pressure, vision and home fall hazards have been assessed. Medications have been reviewed, and recommendations made with regard to contributing factors for future falls. Plan of care: Consideration of vitamin D supplementation along with balance and strength training with consideration for formal physical therapy has been discussed with the patient. she had progressive pain over the last couple of years. This is become constant at this point from her recollection she thinks she probably had this about 20 years ago. We did replace her right shoulder which is doing well. I recommend we work this up for infection she has had a couple of septic incidences over the last 2 years from other issues. I did talk to her about P acnes infections as well. I recommended aspiration of the left shoulder hold for 14 days for P acnes. Also get a CT scan and lab order for ESR CRP and CBC to see Dr. Whiting 2 weeks after the aspiration Notes This dictation was done with voice recognition software and may contain errors and omissions. Practice Management Use of tobacco assessment performed and patient screened for future fall risk documentation of any fall with injury in past year Review of medications documented. Care Team - Chandra Leahy MD - VACCINATOR
--- OUTSIDE RECORDS SUMMARY | 2024-07-10 19:36 | XMS_ITS | Clinical Summary ---
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 Name Role Phone Tosin VARGAS, Chandra Flores Unavailable [phone] Chel VARGAS, Davidson Unavailable [phone] Timothy Granda Primary Care Provider Unavailabl e Reason for Visit and Chief Complaint The Chief Complaint is: Left shoulder pain Problems Includes: Problems addressed during this encounter and other active Problems All Visits Onset Date Resolved Date Provider Condition S tatus Joint Pain, Localized in the Left Shoulder 03/16/2023 Funmi Robles PA-C Active Last Documented On 3 10:30AM ; [facility], [facility] Joint Pain in the Left Knee 03/31/2022 Jesus Espinosa MD Active Last Documented On 2 10:01AM ; [facility], [facility] Joint Pain in the Right Knee 02/12/2019 Timothy Foster MD Active Last Documented On 9 10:35AM ; [facility], [facility] Joint Pain in the Right Hip 02/12/2019 Timothy wheeler MD Active Last Documented On 9 10:35AM ; [facility], [facility] Joint Pain, Localized in the Shoulder 05/29/2018 Bautista Luis MD Active Last Documented On 9 10:31AM ; [facility], [facility] Plan of Treatment - Patient screened for future fall risk: documentation of any fall with injury in past year - Last Documented On 01/30/2024 4:58PM ; [facility], [facility] Fall Risk Assessment: This patient has been [...] with the patient. - Last Documented On 01/30/2024 4:58PM ; [facility] Referrals To Diagnosis Consult with Orth[facility] Note: REFFERAL TO SHARON Orozco @ [facility] ([phone]) Last Documented On 4 4:58PM ; [facility], [facility] Consult with Orthopedic [facility] Note: Dr Sharon [facility] // cc Last Documented On 11:37AM ; [facility], [facility] Future Appointments Date Time Location Provi kiera Follow Up 08/18/2024 1:00PM [facility] RAFIQ Larson PA-C Last Documented On 5 1:45PM ; [facility], [facility] Instructions to patient Lose weight Last Documented On 4 2:44PM ; [facility], [facility] Assessments Includes: Assessments from this encounter Findings - Overweight - Last Documented On 01/30/2024 4:58PM ; [facility] Instructions Includes: Instructions from this encounter Instructions to patient Lose weight Last Documented On 4 2:44PM ; [facility], [facility] Medical Equipment - Implanted Devices Includes: Current Devices No Medical Equipment Recorded Medications Includes: Medications discussed during this encounter and other current Medications Discontinued / Stopped on this date Chandra Leahy MD on 03/12/2023 Acyclovir 400 MG Oral Tablet Provider: Chandra Leahy MD Diagnosis: Last Documented On 4 2:43PM By Karen Sawyer [facility] Eliquis 5 MG Oral Tablet Provider: Aaron Leahy MD Diagnosis: Last Documented On 4 2:43PM By Karen Ornelas ; [facility], [facility] Diphenoxylate-Atropine 2.5-0.025 MG Oral Tablet Provider: Diagnosis: Last Documented On 4 2:43PM By Karen Ornelas ; [facility], [facility] OxyCONTIN 20 MG Oral Tablet ER 12 Hour Abuse-Deterrent Provider: Diagnosis: Last Documented On 4 2:43PM By Kraen Ornelas ; [facility] Sulfamethoxazole-Trimethoprim 400-80 MG Oral Tablet Provider: Diagnosis: Last Documented On 4 2:43PM By Karen Ornelas ; [facility], [facility] Potassium Chloride Amy ER 2 0 MEQ Oral Tablet Extended Release Provider: MADI CHAPIN MD Diagnosis: Last Documented On 4 2:43PM By Karen Ornelas ; [facility], [facility] Levothyroxine Sodium 25 MCG Oral Tablet P rovider: Chandra Leahy MD Diagnosis: Last Documented On 4 2:43PM By Karen Ornelas ; [facility], [facility] amLODIPine Besylate 5 MG Oral Tablet Prov ider: Diagnosis: Last Documented On 4 2:43PM By Karen Ornelas ; [facility], [facility] Cephalexin 500 MG Oral Capsule Provider: Diagnosis: Last Documented On 4 2:43PM By Karen Ornelas ; [facility], [facility] oxyCODONE HCl 10 MG Oral Tablet Provider: Chandra Leahy MD Diagnosis: Last Documented On 4 2:43PM By Karen Ornelas ; [facility], [facility] amLODIPine Besylate 10 MG Oral Tablet Pro vider: MADI CHAPIN MD Diagnosis: Last Documented On 4 2:44PM By Karen Ornelas ; [facility], [facility] Atorvastatin Calcium 20 MG Oral Tablet Pr ovider: MADI CHAPIN MD Diagnosis: Last Documented On 4 2:44PM By Karen Ornelas ; [facility], [facility] cloNIDine HCl 0.1 MG Oral Tablet Provider : Diagnosis: Last Documented On 4 2:44PM By Karen Ornelas ; [facility], [facility] Potassium Chloride Amy ER 2 0 MEQ Oral Tablet Extended Release Provider: MADI CHAPIN MD Diagnosis: Last Documented On 4 2:44PM By Karen Ornelas ; [facility] Current Medications (continue as prescribed) Acyclovir 400 MG Oral Tablet 01/27/2024 Provider: Diagnosis: Last Documented On 4 2:44PM By Karen Ornelas ; [facility] oxyCODONE HCl 10 MG Oral Tablet 01/22/2024 Provider: Diagnosis: Last Documented On 4 2:44PM By Karen Ornelas ; [facility] Dicyclomine HCl 10 MG Oral Capsule 01/22/2024 Provid er: CASTILLO ESPINO II, MD Diagnosis: Last Documented On 4 2:44PM By Karen Ornelas ; [facility] tiZANidine HCl 4 MG Oral Tablet 01/18/2024 Provider: Diagnosis: Last Documented On 4 2:44PM By Karen Ornelas ; [facility] Sulfamethoxazole-Trimethoprim 400-80 MG Oral Tablet Provider: Diagnosis: Last Documented On 4 2:44PM By Karen Ornelas ; [facility], [facility] DULoxetine HCl 60 MG Oral Capsule Delayed Releas e Particles 01/18/2024 Provider: Diagnosis: Last Documented On 4 2:44PM By Karen Ornelas ; [facility] HYDROmorphone HCl 4 MG Oral Tablet 01/08/2024 Provid er: Diagnosis: Last Documented On 4 2:44PM By Karen Ornelas ; [facility], [facility] Fluticasone-Salmeterol 100-5 0 MCG/ACT Inhalation Aerosol Powder Breath Activated 01/08/2024 Provider: Diagnosis: Last Documented On 4 2:44PM By Karen Ornelas ; [facility] Atorvastatin Calcium 40 MG Oral Tablet 01/08/2024 Pr ovider: Diagnosis: Last Documented On 4 2:44PM By Karen Ornelas ; [facility] Levothyroxine Sodium 25 MCG Oral Tablet 12/31/2023 P rovider: Diagnosis: Last Documented On 4 2:44PM By Karen Ornelas ; [facility] Eliquis 5 MG Oral Tablet 12/31/2023 Provider: Diagnosis: Last Documented On 4 2:44PM By Karen Ornelas ; [facility], [facility] Atorvastatin Calcium 20 MG Oral Tablet 12/31/2023 Pr ovider: Diagnosis: Last Documented On 4 2:44PM By Karen Ornelas ; [facility], [facility] amLODIPine Besylate 5 MG Oral Tablet 12/10/2023 Prov ider: Diagnosis: Last Documented On 4 2:44PM By Karen Ornelas ; [facility], [facility] Albuterol Sulfate 108 (90 Ba se) MCG/ACT Inhalation Aerosol Powder Breath Activated 06/15/2022 Provider: Diagnosis: Last Documented On 3 8:21AM By Merari Parson ; [facility], [facility] Cymbalta 20 MG Oral Capsule Delayed Release Particles 06/15/2022 Provider: Diagnosis: Last Documented On 3 8:21AM By Merari Parson ; [facility], [facility] Estradiol 0.1 MG/GM Vaginal Cream 06/15/2022 Provide r: Diagnosis: Last Documented On 3 9:04AM By Merari Parson ; [facility], [facility] Retin-A 0.1% External Cream 06/15/2022 Provider: Diagnosis: Last Documented On 3 9:03AM By Merari Parson ; [facility], [facility] Nystatin-Triamcinolone 250190-1.1 UNIT/GM-% External C ream 06/15/2022 Provider: Diagnosis: Last Documented On 3 9:02AM By Merari Parson ; [facility], [facility] Triamcinolone Acetonide 0.1% External Cream 06/15/2022 Provider: Diagnosis: Last Documented On 3 8:29AM By Merari Parson ; [facility] oxyCODONE HCl 10 MG Oral Tablet 06/15/2022 Provider: Diagnosis: Last Documented On 3 8:27AM By Merari Parson ; [facility], [facility] Losartan Potassium 50 MG Oral Tablet 06/15/2022 Prov ider: Diagnosis: Last Documented On 3 8:26AM By Merari Parson ; [facility], [facility] Fluticasone-Salmeterol 250-5 0 MCG/ACT Inhalation Aerosol Powder Breath Activated 06/15/2022 Provider: Diagnosis: Last Documented On 3 8:25AM By Merari Parson ; [facility], [facility] Diphenoxylate-Atropine 2.5-0.025 MG Oral Tablet 2022 Provider: Diagnosis: Last Documented On 3 8:22AM By Merari Parson ; [facility], [facility] Acyclovir 400 MG Oral Tablet 10/05/2020 Provider: Diagnosis: Last Documented On 1 3:19PM By Adele Trevino ; [facility], [facility] Past Medications on file oxyCODONE HCl 5 MG Oral Tablet 07/19/2022 - 07/29/2022 Provider: Jesus Zimmer MD Diagnosis: Take 1 tablet by mouth every 4-6 hrs for break through pain Last Documented On 3 11:00AM By Jesus Espinosa ; [facility], [facility] Meloxicam 15 MG Oral Tablet 07/03/2022 - 07/17/2022 Pr ovider: Jesus Espinosa MD Diagnosis: once a day Last Documented On 3 8:45AM By Barbara Correa ; [facility], [facility] Ondansetron HCl 4 MG Oral Tablet 06/30/2022 - 07/07/2022 Provider: Jesus Zimmer MD Diagnosis: 1 po q 6h prn nausea Last Documented On 3 1:35PM By Jesus Espinosa ; [facility], [facility] oxyCODONE HCl 5 MG Oral Tablet 06/30/2022 - 07/10/2022 Provider: Jesus Zimmer MD Diagnosis: Take 1 tablet by mouth every 4-6 hrs for break through pain Last Documented On 3 1:35PM By Jesus Espinosa ; [facility], [facility] Acetaminophen 500 MG Oral Tablet 06/30/2022 - 07/14/2022 Provider: Jesus Zimmer MD Diagnosis: Take 2 tablets by mouth every 8 hours Last Documented On 3 1:35PM By Jesus Espinosa ; [facility], [facility] Cefadroxil 500 MG Oral Capsule 06/30/2022 - 07/07/2022 Provider: Jesus Zimmer MD Diagnosis: Take 1 tablet by mouth every 12 hours for 7 days Last Documented On 3 1:35PM By Jesus Espinosa ; [facility], [facility] Aspirin EC 81 MG Oral Tablet Delayed Release 06/30/2022 - 08/11/2022 Provider: Jesus Espinosa MD Diagnosis: Take 1 tablet by mouth every 12 hours for 42 days post op Last Documented On 3 1:35PM By Jesus Espinosa ; [facility] Vitamin D3 50 MCG (1999) Oral Tablet 06/20/2022 - 07/20/2022 Provider: Diana ABDI Diagnosis: once a day Last Documented On 3 1:03PM By Diana Rosas ; [facility] cloNIDine HCl 0.1 MG Oral Tablet 10/05/2020 - 11/05/19 Provider: Diagnosis: Last Documented On 1 3:16PM By Adele Trevino ; [facility], [facility] Atorvastatin Calcium 20 MG O ral Tablet 10/05/2020 - 11/04/2020 Provider: MADI CHAPIN MD Diagnosis: Last Documented On 1 3:18PM By Adele Trevino ; [facility] Medications Administered Includes: Administered Medications from this encounter No Administered Medications Recorded Vital Signs Includes: Vital Signs from this encounter Vital Name 01/30/2024 02:45P Height (in) 62 Weight (lb) 140 Body Mass Index 25.6 Body Surface Area 1.6 Note: ct Last Documented: On 01/30/2024 3:32PM ; [facility], [facility] Results Includes: Results discussed during this encounter No Results Recorded For Specified Dates History of Present Illness Includes: History of Present Illness from this encounter HPI Farrah Atkinson is a 73 year old female. - Symptoms Catching pain better: pain meds, heat pain worse: using shoulder, lifting, moving in certain ways. - Allergy list reviewed - Problem list reviewed - Medication list reviewed - Sharp pain Symptoms - Stabbing - Pain is constant (100% of the time) - Pain is throbbing - Patient pain level from 1-10: 9 Pain is better with medication and rest. Pain is worse with motion, particularly pushing down - Yes, previous treatment. - History of Physical Therapy - History of Home Exercise - History of Chiropractic - History of Injections - - Review of medications documented Medications used for this condition: Patient is seen today for continued pain in the left shoulder. She would have a shoulder replacement in the shoulder but was seen earlier this year with loosening of the glenoid component. The pain did improve thereafter so she would not pursue any more care. Now the pain has returned he is getting worse. Physical exam Skin incisions well healed. She is neurologically intact to axillary LADC radial median and ulnar nerve distributions. She is palpable distal pulse. Her fingers are warm and well perfused. Elevation actively is to about 80. External rotation is about 20. She has a positive abdominal compression test. She is pain inhibition which limits strength testing to supra and infraspinatus. There has no significant swelling erythema. Imaging In-house x-ray of the left shoulder does show loosening with glenoid wasting of the glenoid component. Assessment Left shoulder pain secondary to loosening of the glenoid component Plan Physical exam findings and imaging results were discussed with the patient by myself and my surgeon. Based on these findings the type of custom implant she would need he is not something has proved by the hospital. We will refer her to Dr. Mixon in [place] for further evaluation and treatment. Social History Description Last Updated Recent change in diet 01/30/2024 Last Documented On 4 4:58PM ; [facility], [facility] Not a current smoker. 01/30/2024 Last Documented On 4 4:58PM ; [facility], [facility] Caffeine use 10/05/2020 Last Documented On 4 2:44PM ; [facility] Exercising regularly 10/05/2020 Last Documented On 4 2:44PM ; [facility] No recent change in diet 10/05/2020 Last Documented On 4 2:44PM ; [facility], [facility] Not a current smoker. 10/05/2020 Last Documented On 4 2:44PM ; [facility], [facility] Not using alcohol 10/05/2020 Last Documented On 4 2:44PM ; [facility] Not using drugs 10/05/2020 Last Documented On 4 2:44PM ; [facility] No tobacco use 05/29/2018 Last Documented On 4 2:44PM ; [facility] Smoking Status Unknown Procedures and Surgical History Includes: Procedures from this encounter Procedures Code Diagnosis Performing Provider Service Location Service Date X-RAY EXAM OF SHOULDER 2-3 VIEWS (LEFT) 35928 Pain in left shoulder, Presence of left artificial shoulder joint Chandra Grewal PA-C [facility] 01/30/2024 Last Documented On 4 10:59AM ; [facility] use of tobacco assessment performed 1000F Last Documented On 4 2:44PM ; [facility] patient screened for future fall risk: documentation of any fall with injury in past year 1100F Last Documented On 4 2:44PM ; [facility] review of medications documented 1160F Last Documented On 4 2:44PM ; [facility] an X-ray was performed 68449 Last Documented On 4 2:44PM ; [facility] CT scan 06364 Last Documented On 4 3:34PM ; [facility] an MRI was performed 33845 Last Documented On 4 2:44PM ; [facility] Surgical History Last Updated History of History of Arthroscopy 2023 Last Documented On 4 4:58PM ; [facility] History of Previous Fractures 01/30/2024 Last Documented On 4 4:58PM ; [facility] History of total hip replacement Last Documented On 4 4:58PM ; [facility] History of total knee arthroplasty 01/29 Last Documented On 4 4:58PM ; [facility] Past Surgical History: 03/16/2023 Last Documented On 4 2:44PM ; [facility] Medical History Includes: Medical History addressed during this encounter Description Last Updated History of asthma 01/30/2024 Last Documented On 4 4:58PM ; [facility], [facility] History of History of Blood Transfusion 01/30/2024 Last Documented On 4 4:58PM ; [facility], [facility] History of Hypertension 01/30/2024 Last Documented On 4 4:58PM ; [facility], [facility] History of Anemia 03/16/2023 Last Documented On 4 2:44PM ; [facility], [facility] History of arthritis 03/16/2023 Last Documented On 4 2:44PM ; [facility], [facility] History of History of Blood Clots 2022 Last Documented On 4 2:44PM ; [facility], [facility] Anemia 10/05/2020 Last Documented On 4 2:44PM ; [facility], [facility] Arthritis 10/05/2020 Last Documented On 4 2:44PM ; [facility], [facility] History of Arthroscopy 10/05/2020 Last Documented On 4 2:44PM ; [facility], [facility] Recent immunization for flu 10/05/2020 Last Documented On 4 2:44PM ; [facility], [facility] Recent immunization for pneumococcal pne umonia 10/05/2020 Last Documented On 4 2:44PM ; [facility], [facility] Shoulder arthroplasty 10/05/2020 Last Documented On 4 2:44PM ; [facility], [facility] Total hip replacement 10/05/2020 Last Documented On 4 2:44PM ; [facility], [facility] Total knee arthroplasty 10/05/2020 Last Documented On 4 2:44PM ; [facility], [facility] arthroscopy ~total joint replacement ~hi gh cholesterol 05/29/2018 Last Documented On 4 2:44PM ; [facility], [facility] Arthritic joint problems 05/29/2018 Last Documented On 4 2:44PM ; [facility], [facility] History of depression 05/29/2018 Last Documented On 4 2:44PM ; [facility] History of hepatitis C 05/29/2018 Last Documented On 4 2:44PM ; [facility] Family History Includes: Family History addressed during this encounter Description Last Updated Family history of cancer 10/05/2020 Last Documented On 4 2:44PM ; [facility] Family history of osteoporosis Last Documented On 4 2:44PM ; [facility] Family history of thromboembolic disease 05/29/2018 Last Documented On 4 2:44PM ; [facility] Review of Systems Includes: Review of Systems from this encounter Systemic: Not feeling tired, no recent weight loss, and no recent weight gain. Head: Headache. No sinus pain. Eyes: No vision problems, no Cataracts, no Glasses/Contacts, and no Glaucoma. Otolaryngeal: No hearing loss and no tinnitus. Cardiovascular: No chest pain or discomfort, no palpitations, and no Hypertension. High Cholesterol. Pulmonary: Daytime asthma symptoms. No chronic cough. Wheezing. Gastrointestinal: No heartburn. Abdominal pain and Indigestion. No Peptic Ulcer, no GI Stomach Bleed, and no Ulcers. Acid Reflux. Endocrine: No hot flashes, no muscle weakness, no Diabetes, no Hypothyroid, and no Hyperthyroid. Hematologic: Easy bleeding, a tendency for easy bruising, and Anemia. Musculoskeletal: Arthritis and lower back pain. No soft tissue swelling. Pain localized to one or more joints. Neurological: No dizziness, no convulsions, and no numbness. Psychological: Anxiety, emotional lability, and depression. No insomnia. Crying for no reason. Skin: No dry skin. [...] Active Last Documented On 06/16/2024 12:48PM ; [facility] Note: joint pain- Major fluoroquinolones Allergy 09/04/2018 Ac tive Last Documented On 5 12:48PM ; [facility], [facility] Encounters Encounter Provider Location Date Check-In Time Check-Out Time Diagnosis Follow Up Chandra Grewal PA-C [facility] 01/30/20 24 2:50PM 3:29PM Overweight Insurance Includes: Active Insurance Policies Plan Name Member ID Group # Subscriber Relationship Effect sherman Dates 1 - Medicare Part B [facility] [id number] Farrah Atkinson Self 4 - Unknown 2 - [employer] [facility] [id number] Farrah Atkinson Self 05/03/2019 - Unknown Clinical Notes Includes: Clinical Notes from this encounter * Progress note Date Encounter Last Documented by 01/30/2024 Follow Up Last documented on 01/30/2024; 4:58 PM, Chandra Grewal PA-C; [facility] Active Problems & Conditions - Joint Pain in the Left Knee - Joint Pain in the Right Hip - Joint Pain in the Right Knee - Joint Pain, Localized in the Left Shoulder - Joint Pain, Localized in the Shoulder Chief Complaint The Chief Complaint is: Left shoulder pain. Referred Here Referred by. History of Present Illness Farrah Atkinson is a 73 year old female. - Symptoms Catching pain better: pain meds, heat pain worse: using shoulder, lifting, moving in certain ways. - Allergy list reviewed - Problem list reviewed - Medication list reviewed - Sharp pain Symptoms - Stabbing - Pain is constant (100% of the time) - Pain is throbbing - Patient pain level from 1-10: 9 Pain is better with medication and rest. Pain is worse with motion, particularly pushing down - Yes, previous treatment. - History of Physical Therapy - History of Home Exercise - History of Chiropractic - History of Injections - - Review of medications documented Medications used for this condition: Patient is seen today for continued pain in the left shoulder. She would have a shoulder replacement in the shoulder but was seen earlier this year with loosening of the glenoid component. The pain did improve thereafter so she would not pursue any more care. Now the pain has returned he is getting worse. Physical exam Skin incisions well healed. She is neurologically intact to axillary LADC radial median and ulnar nerve distributions. She is palpable distal pulse. Her fingers are warm and well perfused. Elevation actively is to about 80. External rotation is about 20. She has a positive abdominal compression test. She is pain inhibition which limits strength testing to supra and infraspinatus. There has no significant swelling erythema. Imaging In-house x-ray of the left shoulder does show loosening with glenoid wasting of the glenoid component. Assessment Left shoulder pain secondary to loosening of the glenoid component Plan Physical exam findings and imaging results were discussed with the patient by myself and my surgeon. Based on these findings the type of custom implant she would need he is not something has proved by the hospital. We will refer her to Dr. Mixon in [place] for further evaluation and treatment. Current Medication - Acyclovir 400 MG Oral Tablet take as directed 0 days, 0 refills - Acyclovir 400 MG Oral Tablet 30 days, 0 refills - Albuterol Sulfate 108 (90 Base) MCG/ACT Inhalation Aerosol Powder Breath Activated take as directed 0 days, 0 refills - amLODIPine Besylate 5 MG Oral Tablet 90 days, 0 refills - Atorvastatin Calcium 20 MG Oral Tablet 90 days, 0 refills - Atorvastatin Calcium 40 MG Oral Tablet 30 days, 0 refills - Cymbalta 20 MG Oral Capsule Delayed Release Particles take as directed 0 days, 0 refills - Dicyclomine HCl 10 MG Oral Capsule 30 days, 0 refills - Diphenoxylate-Atropine 2.5-0.025 MG Oral Tablet take as directed 0 days, 0 refills - DULoxetine HCl 60 MG Oral Capsule Delayed Release Particles 90 days, 0 refills - Eliquis 5 MG Oral Tablet 30 days, 0 refills - Estradiol 0.1 MG/GM Vaginal Cream take as directed 0 days, 0 refills - Fluticasone-Salmeterol 100-50 MCG/ACT Inhalation Aerosol Powder Breath Activated 30 days, 0 refills - Fluticasone-Salmeterol 250-50 MCG/ACT Inhalation Aerosol Powder Breath Activated take as directed 0 days, 0 refills - HYDROmorphone HCl 4 MG Oral Tablet 10 days, 0 refills - Levothyroxine Sodium 25 MCG Oral Tablet 90 days, 0 refills - Losartan Potassium 50 MG Oral Tablet take as directed 0 days, 0 refills - Nystatin-Triamcinolone 521613-7.1 UNIT/GM-% External Cream take as directed 0 days, 0 refills - oxyCODONE HCl 10 MG Oral Tablet take as directed 0 days, 0 refills - oxyCODONE HCl 10 MG Oral Tablet 30 days, 0 refills - Retin-A 0.1% External Cream take as directed 0 days, 0 refills - Sulfamethoxazole-Trimethoprim 400-80 MG Oral Tablet 30 days, 0 refills - tiZANidine HCl 4 MG Oral Tablet 30 days, 0 refills - Triamcinolone Acetonide 0.1% External Cream take as directed 0 days, 0 refills Past Medical/Surgical History Reported: Medical: Arthritic joint problems. Immunization History: Recent immunization for flu and for pneumococcal pneumonia. Diagnoses: Asthma History of Blood Clots. Anemia. Anemia History of Blood Transfusion Hypertension. Hepatitis C. Arthritis. Arthritis. Depression Arthroscopy total joint replacement high cholesterol. Surgical: - Past Surgical History: - Previous Fractures - History of Arthroscopy - History of Arthroscopy - Shoulder arthroplasty - Total hip replacement - Total hip replacement - Total knee arthroplasty - Total knee arthroplasty Social History Not a current smoker. Not a current smoker. Current diet: No recent change in diet. Recent change in diet. Caffeine use: Caffeine use. Tobacco use: No tobacco use. Alcohol: Not using alcohol. Drug Use: Not using drugs. Habits: Exercising regularly. Allergies - fluoroquinolones - Levaquin Family History Cancer Thromboembolic disease Osteoporosis Review Of Systems Systemic: Not feeling tired, no recent weight loss, and no recent weight gain. Head: Headache. No sinus pain. Eyes: No vision problems, no Cataracts, no Glasses/Contacts, and no Glaucoma. Otolaryngeal: No hearing loss and no tinnitus. Cardiovascular: No chest pain or discomfort, no palpitations, and no Hypertension. High Cholesterol. Pulmonary: Daytime asthma symptoms. No chronic cough. Wheezing. Gastrointestinal: No heartburn. Abdominal pain and Indigestion. No Peptic Ulcer, no GI Stomach Bleed, and no Ulcers. Acid Reflux. Endocrine: No hot flashes, no muscle weakness, no Diabetes, no Hypothyroid, and no Hyperthyroid. Hematologic: Easy bleeding, a tendency for easy bruising, and Anemia. Musculoskeletal: Arthritis and lower back pain. No soft tissue swelling. Pain localized to one or more joints. Neurological: No dizziness, no convulsions, and no numbness. Psychological: Anxiety, emotional lability, and depression. No insomnia. Crying for no reason. Skin: No dry skin. No Ulcers, no Scars, and no rash. Allergic and Immunologic: No complaint of seasonal allergic reaction. Physical Findings - Vitals taken 01/30/2024 02:[address] Height 62 in Weight 140 lbs Body Mass Index 25.6 kg/m2 Body Surface Area 1.6 m2 Assessment - Overweight Previous Tests Imaging: X-Ray: An X-ray was performed. CT Scan: CT scan. MRI Scan: An MRI was performed. Counseling/Education - Tobacco non-user - Use of tobacco assessment performed - Lose weight Plan StartCited - Overweight Referral/Orthopedic: Consult with Orthopedic Instructions: REFFERAL TO SHARON MIXON @ [facility] ([phone]) Referral/Orthopedic: Consult with Orthopedic Instructions: Dr [facility] // cc EndCited - Patient screened for future fall risk: documentation of any fall with injury in past year Fall Risk Assessment: This patient has been [...] therapy has been discussed with the patient. Notes This dictation was done with voice recognition software and may contain errors and omissions. Practice Management Use of tobacco assessment performed and patient screened for future fall risk documentation of any fall with injury in past year Review of medications documented. Care Team - Chandra Leahy MD - LEATHER ROLLER
--- OUTSIDE RECORDS SUMMARY | 2024-07-10 19:37 | XMS_ITS | Clinical Summary ---
Author Organization [facility] , [facility] Address [address] [place] [address] Phone Care Team Providers Care Electrician Deck Name Role Phone Tosin VARGAS, Chandra Flores Unavailable [phone] Chel VARGAS, Davidson Unavailable [phone] Timothy Granda Primary Care Provider Unavailabl e Reason for Visit and Chief Complaint The Chief Complaint is: Left shoulder pain Problems Includes: Problems addressed during this encounter and other active Problems All Visits Onset Date Resolved Date Provider Condition S tatus Joint Pain, Localized in the Left Shoulder 03/16/2023 Funmi Robles PA-C Active Last Documented On 3 10:30AM ; [facility], [facility] Joint Pain in the Left Knee 03/31/2022 Jesus Espinosa MD Active Last Documented On 2 10:01AM ; [facility], [facility] Joint Pain in the Right Knee 02/12/2019 Timothy Foster MD Active Last Documented On 9 10:35AM ; [facility], [facility] Joint Pain in the Right Hip 02/12/2019 Timothy wheeler MD Active Last Documented On 9 10:35AM ; [facility], [facility] Joint Pain, Localized in the Shoulder 05/29/2018 Bautista Luis MD Active Last Documented On 9 10:31AM ; [facility], [facility] Plan of Treatment Fall Risk [...] with the patient. - Last Documented On 05/01/2023 3:50PM ; [facility], [facility] This is a very complex situation in that there may in fact not be enough glenoid bone remaining to perform a single stage revision to reverse arthroplasty. 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 This would need to be extracted to convert her to a reverse arthroplasty. Fortunately it is uncemented. Prior to committing to a revision to reverse arthroplasty I am going to plan this using revision templating software to help understand how much bone may be remaining in the glenoid vault and whether a single stage revision would be possible. In total the following options would be possible. First option would be again a single stage revision to reverse arthroplasty with extraction of the humeral component and utilization of a long peg base plate with possible bone grafting behind this base plate. Second option would be a two-stage revision with or without extraction of the humeral component. We would use allograft humeral head or proximal femur with fixation into the glenoid vault with screws and allow 3-4 months of osseous integration with a CT scan after that time. To ensure the integration has occurred. If it has we then proceed with placement of a long post base plate at that time. I have tentatively scheduled a phone call with this patient this coming Sunday to discuss this case further after we are able to evaluate the revision templating software. We will follow up with her early next week - Last Documented On 05/01/2023 3:50PM ; [facility], [facility] Future Appointments Date Time Location Provi kiera Follow Up 08/18/2024 1:00PM [facility] Last Documented On 5 1:45PM ; [facility] Instructions to patient Lose weight Last Documented On 4 2:05PM ; [facility] Assessments Includes: Assessments from this encounter Findings - Overweight - Last Documented On 05/01/2023 3:50PM ; [facility] Status post left total shoulder arthroplasty done at an outside institution over a decade ago with signs and symptoms consistent with 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 Patient has severe pain and significant loss of function despite modification of activities utilization of anti-inflammatories. - Last Documented On 05/01/2023 3:50PM ; [facility] She is also status post a right total shoulder replacement done by me several years ago which seems to be per her report functioning well. - Last Documented On 05/01/2023 3:50PM ; [facility] Instructions Includes: Instructions from this encounter Instructions to patient Lose weight Last Documented On 4 2:05PM ; [facility] Medical Equipment - Implanted Devices Includes: Current Devices No Medical Equipment Recorded Medications Includes: Medications discussed during this encounter and other current Medications Current Medications (continue as prescribed) Acyclovir 400 MG Oral Tablet 01/27/2024 Provider: Diagnosis: Last Documented On 4 2:44PM By Karen AMBRIZ [facility], [facility] oxyCODONE HCl 10 MG Oral Tablet 01/22/2024 Provider: Diagnosis: Last Documented On 4 2:44PM By Karen AMBRIZ [facility], [facility] Dicyclomine HCl 10 MG Oral Capsule 01/22/2024 Provid er: CASTILLO ESPINO II, MD Diagnosis: Last Documented On 4 2:44PM By Karen AMBRIZ [facility], [facility] tiZANidine HCl 4 MG Oral Tablet 01/18/2024 Provider: Diagnosis: Last Documented On 4 2:44PM By Karen AMBRIZ [facility], [facility] Sulfamethoxazole-Trimethoprim 400-80 MG Oral Tablet Provider: Diagnosis: Last Documented On 4 2:44PM By Karen Sawyer [facility], [facility] DULoxetine HCl 60 MG Oral Capsule Delayed Releas e Particles 01/18/2024 Provider: Diagnosis: Last Documented On 4 2:44PM By Karen Ornelas ; [facility], [facility] HYDROmorphone HCl 4 MG Oral Tablet 01/08/2024 Provid er: Diagnosis: Last Documented On 4 2:44PM By Karen Ornelas ; [facility], [facility] Fluticasone-Salmeterol 100-5 0 MCG/ACT Inhalation Aerosol Powder Breath Activated 01/08/2024 Provider: Diagnosis: Last Documented On 4 2:44PM By Karen Ornelas ; [facility], [facility] Atorvastatin Calcium 40 MG Oral Tablet 01/08/2024 Pr ovider: Diagnosis: Last Documented On 4 2:44PM By Karen Ornelas ; [facility], [facility] Levothyroxine Sodium 25 MCG Oral Tablet 12/31/2023 P rovider: Diagnosis: Last Documented On 4 2:44PM By Karen Ornelas ; [facility], [facility] Eliquis 5 MG Oral Tablet 12/31/2023 Provider: Diagnosis: Last Documented On 4 2:44PM By Karen Ornelas ; [facility], [facility] Atorvastatin Calcium 20 MG Oral Tablet 12/31/2023 Pr ovider: Diagnosis: Last Documented On 4 2:44PM By Karen Ornelas ; [facility], [facility] amLODIPine Besylate 5 MG Oral Tablet 12/10/2023 Prov ider: Diagnosis: Last Documented On 4 2:44PM By Karen Ornelas ; [facility], [facility] Albuterol Sulfate 108 (90 Ba se) MCG/ACT Inhalation Aerosol Powder Breath Activated 06/15/2022 Provider: Diagnosis: Last Documented On 3 8:21AM By Merari Parson ; [facility], [facility] Cymbalta 20 MG Oral Capsule Delayed Release Particles 06/15/2022 Provider: Diagnosis: Last Documented On 3 8:21AM By Merari Parson ; [facility], [facility] Estradiol 0.1 MG/GM Vaginal Cream 06/15/2022 Provide r: Diagnosis: Last Documented On 3 9:04AM By Merari Parson ; [facility], [facility] Retin-A 0.1% External Cream 06/15/2022 Provider: Diagnosis: Last Documented On 3 9:03AM By Merari Parson ; [facility], [facility] Nystatin-Triamcinolone 856974-7.1 UNIT/GM-% External C ream 06/15/2022 Provider: Diagnosis: Last Documented On 3 9:02AM By Merari Parson ; [facility], [facility] Triamcinolone Acetonide 0.1% External Cream 06/15/2022 Provider: Diagnosis: Last Documented On 3 8:29AM By Merari Parson ; [facility], [facility] oxyCODONE HCl 10 MG Oral Tablet 06/15/2022 Provider: Diagnosis: Last Documented On 3 8:27AM By Merari Parson ; [facility], [facility] Losartan Potassium 50 MG Oral Tablet 06/15/2022 Prov ider: Diagnosis: Last Documented On 3 8:26AM By Merari Parson ; [facility], [facility] Fluticasone-Salmeterol 250-5 0 MCG/ACT Inhalation Aerosol Powder Breath Activated 06/15/2022 Provider: Diagnosis: Last Documented On 3 8:25AM By Merari Parson ; [facility], [facility] Diphenoxylate-Atropine 2.5-0.025 MG Oral Tablet 2022 Provider: Diagnosis: Last Documented On 3 8:22AM By Merari Parson ; [facility], [facility] Acyclovir 400 MG Oral Tablet 10/05/2020 Provider: Diagnosis: Last Documented On 1 3:19PM By Adele Trevino ; [facility], [facility] Past Medications on file oxyCODONE HCl 5 MG Oral Tablet 07/19/2022 - 07/29/2022 Provider: Jesus Zimmer MD Diagnosis: Take 1 tablet by mouth every 4-6 hrs for break through pain Last Documented On 3 11:00AM By Jesus Espinosa ; [facility], [facility] Meloxicam 15 MG Oral Tablet 07/03/2022 - 07/17/2022 Pr ovider: Jesus Espinosa MD Diagnosis: once a day Last Documented On 3 8:45AM By Barbara Correa ; [facility], [facility] Ondansetron HCl 4 MG Oral Tablet 06/30/2022 - 07/07/2022 Provider: Jesus Zimmer MD Diagnosis: 1 po q 6h prn nausea Last Documented On 3 1:35PM By Jesus Espinosa ; [facility], [facility] oxyCODONE HCl 5 MG Oral Tablet 06/30/2022 - 07/10/2022 Provider: Jesus Zimmer MD Diagnosis: Take 1 tablet by mouth every 4-6 hrs for break through pain Last Documented On 3 1:35PM By Jesus Espinosa ; [facility], [facility] Acetaminophen 500 MG Oral Tablet 06/30/2022 - 07/14/2022 Provider: Jesus Zimmer MD Diagnosis: Take 2 tablets by mouth every 8 hours Last Documented On 3 1:35PM By Jesus Espinosa ; [facility], [facility] Cefadroxil 500 MG Oral Capsule 06/30/2022 - 07/07/2022 Provider: Jesus Zimmer MD Diagnosis: Take 1 tablet by mouth every 12 hours for 7 days Last Documented On 3 1:35PM By Jesus Espinosa ; [facility], [facility] Aspirin EC 81 MG Oral Tablet Delayed Release 06/30/2022 - 08/11/2022 Provider: Jesus Espinosa MD Diagnosis: Take 1 tablet by mouth every 12 hours for 42 days post op Last Documented On 3 1:35PM By Jesus Espinosa ; [facility], [facility] Vitamin D3 50 MCG (1999 [place]) Oral Tablet 06/20/2022 - 07/20/2022 Provider: Diana ABDI Diagnosis: once a day Last Documented On 3 1:03PM By Diana Rosas ; [facility], [facility] cloNIDine HCl 0.1 MG Oral Tablet 10/05/2020 - 11/05/19 Provider: Diagnosis: Last Documented On 1 3:16PM By Adele Trevino ; [facility], [facility] Atorvastatin Calcium 20 MG O ral Tablet 10/05/2020 - 11/04/2020 Provider: MADI CHAPIN MD Diagnosis: Last Documented On 1 3:18PM By Adele Trevino ; [facility], [facility] Medications Administered Includes: Administered Medications from this encounter No Administered Medications Recorded Vital Signs Includes: Vital Signs from this encounter Vital Name 04/30/2023 02:23P Height (in) 62 Weight (lb) 165 Body Mass Index 30.2 Body Surface Area 1.8 Note: bdf Last Documented: On 04/30/2023 2:23PM ; [facility] Results Includes: Results discussed during this encounter No Results Recorded For Specified Dates History of Present Illness Includes: History of Present Illness from this encounter JOSEE Atkinson is a 72 year old female. [...] of Injections Medications used for this condition: Patient is here for re-evaluation of her left shoulder. Patient is well known to me as I performed a right anatomic total shoulder replacement in the remote past. She had a left anatomic total shoulder replacement done at an outside institution over a decade ago per her report. She states that there was no issues with wound healing or drainage from the wound. She states that the shoulder on the right side performed by me a few years ago is functioning well. On the left side which was done at an outside institution she is developed progressive onset of left shoulder pain difficulty with range of motion. Pain is enough to alter sleep. Pain is enough to require significant activity modification. Even low amplitude ranges of motion are extraordinarily painful for her. Social History Description Last Updated No recent change in diet 01/30/2024 Last Documented On 4 2:05PM ; [facility], [facility] Not a current smoker. 01/30/2024 Last Documented On 4 2:05PM ; [facility], [facility] Tobacco non-user 02/17/2022 Last Documented On 4 2:05PM ; [facility], [facility] Caffeine use 10/05/2020 Last Documented On 4 2:05PM ; [facility], [facility] Exercising regularly 10/05/2020 Last Documented On 4 2:05PM ; [facility] No recent change in diet 10/05/2020 Last Documented On 4 2:05PM ; [facility], [facility] Not a current smoker. 10/05/2020 Last Documented On 4 2:05PM ; [facility] Not using alcohol 10/05/2020 Last Documented On 4 2:05PM ; [facility] Not using drugs 10/05/2020 Last Documented On 4 2:05PM ; [facility], [facility] Non-smoker 10/05/2020 Last Documented On 4 2:05PM ; [facility], [facility] Not a current smoker 05/29/2018 Last Documented On 4 2:05PM ; [facility] No tobacco use 05/29/2018 Last Documented On 4 2:05PM ; [facility] Smoking status : Former smoker 9 Last Documented On 4 2:05PM ; [facility], [facility] Procedures and Surgical History Includes: Procedures from this encounter Procedures Code Diagnosis Performing Provider Service L ocation Service Date use of tobacco assessment performed 1000F Last Documented On 4 2:05PM ; [facility] patient screened for future fall risk: documentation of any fall with injury in past year 1100F Last Documented On 4 2:05PM ; [facility] review of medications documented 1160F Last Documented On 4 2:05PM ; [facility] an X-ray was performed [id number] Last Documented On 4 2:05PM ; [facility] an MRI was performed [id number] Last Documented On 4 2:05PM ; [facility] Surgical History Last Updated Past Surgical History: 03/16/2023 Last Documented On 4 2:05PM ; [facility] Medical History Includes: Medical History addressed during this encounter Description Last Updated History of Anemia 03/16/2023 Last Documented On 4 2:05PM ; [facility] History of History of Blood Clots 2022 Last Documented On 4 2:05PM ; [facility] Arthritis 10/05/2020 Last Documented On 4 2:05PM ; [facility] History of Arthroscopy 10/05/2020 Last Documented On 4 2:05PM ; [facility] Recent immunization for flu 10/05/2020 Last Documented On 4 2:05PM ; [facility] Recent immunization for pneumococcal pne umonia 10/05/2020 Last Documented On 4 2:05PM ; [facility] Shoulder arthroplasty 10/05/2020 Last Documented On 4 2:05PM ; [facility] Total hip replacement 10/05/2020 Last Documented On 4 2:05PM ; [facility] Total knee arthroplasty 10/05/2020 Last Documented On 4 2:05PM ; [facility] arthroscopy ~total joint replacement ~hi gh cholesterol 05/29/2018 Last Documented On 4 2:05PM ; [facility] Arthritic joint problems 05/29/2018 Last Documented On 4 2:05PM ; [facility] History of depression 05/29/2018 Last Documented On 4 2:05PM ; [facility] History of hepatitis C 05/29/2018 Last Documented On 4 2:05PM ; [facility] Family History Includes: Family History addressed during this encounter Description Last Updated Family history of cancer 10/05/2020 Last Documented On 4 2:05PM ; [facility] Family history of osteoporosis 1 Last Documented On 4 2:05PM ; [facility] Family history of thromboembolic disease 05/29/2018 Last Documented On 4 2:05PM ; [facility] Review of Systems Includes: Review of [...] Active Last Documented On 06/16/2024 12:48PM ; [facility] Note: joint pain- Major fluoroquinolones Allergy 09/04/2018 Ac tive Last Documented On 5 12:48PM ; [facility], [facility] Encounters Encounter Provider Location Date Check-In Time Check-Out Time Diagnosis Follow Up Bautista Luis MD [facility] 4 2:02PM 2:30PM Overweight Insurance Includes: Active Insurance Policies Plan Name Member ID Group # Subscriber Relationship Effect sherman Dates 1 - Medicare Part B [facility] [id number] Farrah Atkinson Self 4 - Unknown 2 - [employer] [facility] [id number] Farrah Atkinson Self 05/03/2019 - Unknown Clinical Notes Includes: Clinical Notes from this encounter * Progress note Date Encounter Last Documented by 04/30/2023 Follow Up Last documented on 05/01/2023; 3:50 PM, Bautista Luis MD; [facility] Active Problems & Conditions - Joint [...] of Injections Medications used for this condition: Patient is here for re-evaluation of her left shoulder. Patient is well known to me as I performed a right anatomic total shoulder replacement in the remote past. She had a left anatomic total shoulder replacement done at an outside institution over a decade ago per her report. She states that there was no issues with wound healing or drainage from the wound. She states that the shoulder on the right side performed by me a few years ago is functioning well. On the left side which was done at an outside institution she is developed progressive onset of left shoulder pain difficulty with range of motion. Pain is enough to alter sleep. Pain is enough to require significant activity modification. Even low amplitude ranges of motion are extraordinarily painful for her. Current Medication - Acyclovir 400 MG Oral [...] directed 0 days, 0 refills - Nystatin-Triamcinolone 120995-0.1 UNIT/GM-% External Cream take as directed 0 [...] for pneumococcal pneumonia. Diagnoses: History of Blood Clots Anemia. Hepatitis C. Arthritis. Depression Arthroscopy total joint replacement high [...] allergic reaction. Physical Findings - Vitals taken 04/30/2023 02:23 pm bdf Height 62 in Weight 165 lbs Body Mass Index 30.2 kg/m2 Body Surface Area 1.8 m2 PATIENT ALERTED AND ORIENTED X 3 SHOULDER Skin incisions well healed. She is neurologically [...] infraspinatus. There has no significant swelling erythema. Tests Aspiration testing was reviewed. This reveals a white cell count or proximally 1700, neutrophil percentage is roughly 20%. CT scan of the shoulder demonstrates significant glenoid loosening. 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 There may in fact be a small uncontained defect posteriorly however metal artifact does seem to obscure this. Assessment - Overweight Status post left total shoulder arthroplasty done at an outside institution over a decade ago with signs and symptoms consistent with 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 Patient has severe pain and significant loss of function despite modification of activities utilization of anti-inflammatories. She is also status post a right total shoulder replacement done by me several years ago which seems to be per her report functioning well. Previous Tests Imaging: X-Ray: An X-ray was performed. MRI Scan: An MRI was performed. Counseling/Education - Lose weight Plan Fall Risk Assessment: This patient has been [...] therapy has been discussed with the patient. This is a very complex situation in that there may in fact not be enough glenoid bone remaining to perform a single stage revision to reverse arthroplasty. 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 This would need to be extracted to convert her to a reverse arthroplasty. Fortunately it is uncemented. Prior to committing to a revision to reverse arthroplasty I am going to plan this using revision templating software to help understand how much bone may be remaining in the glenoid vault and whether a single stage revision would be possible. In total the following options would be possible. First option would be again a single stage revision to reverse arthroplasty with extraction of the humeral component and utilization of a long peg base plate with possible bone grafting behind this base plate. Second option would be a two-stage revision with or without extraction of the humeral component. We would use allograft humeral head or proximal femur with fixation into the glenoid vault with screws and allow 3-4 months of osseous integration with a CT scan after that time. To ensure the integration has occurred. If it has we then proceed with placement of a long post base plate at that time. I have tentatively scheduled a phone call with this patient this coming Sunday to discuss this case further after we are able to evaluate the revision templating software. We will follow up with her early next week Notes This dictation was done with voice recognition software and may contain errors and omissions. Practice Management Use of tobacco assessment performed and patient screened for future fall risk documentation of any fall with injury in past year Review of medications documented. Care Team - Chandra Leahy MD - PARTNER
--- OUTSIDE RECORDS SUMMARY | 2024-07-10 19:37 | XMS_ITS ---
Care Plan - [facility], [facility] Created on: July 10, 2024 Farrah Atkinson : 1950 Sex: Female Author Organization [facility] , [facility] Address [address] [place] [address] Phone Care Team Providers Care Aviation Medicine Specialist Name Role Phone Tosin VARGAS, Chandra Flores Unavailable [phone] Chel VARGAS, Davidson Unavailable [phone] Timothy Granda Primary Care Provider Unavailabl e
--- OUTSIDE RECORDS SUMMARY | 2024-07-10 19:37 | XMS_ITS ---
Author Organization [facility] Address [address] [place] [address] Phone Care Team Providers Care Charge Histotechnologist Name Role Phone Tosin VARGAS, Chandra Flores Unavailable [phone] Chel VARGAS, Davidson Unavailable [phone] Timothy Granda Primary Care Provider Unavailabl e Reason for Referral Date Encounter Description Provider Reason for Referral 10/05/20 IN HOUSE REFERRAL Jesus Espinosa MD Referral To Physician - see pcp for bp 12/16/19 Post Op Timothy Foster MD Referral To Physician Problems Includes: Active, inactive, and resolved Problems All Visits Onset Date Resolved Date Provider Condition S tatus Joint Pain, Localized in the Left Shoulder 03/16/2023 Funmi Robles PA-C Active Last Documented On 3 10:30AM ; [facility] Joint Pain in the Left Knee 03/31/2022 Jesus Espinosa MD Active Last Documented On 2 10:01AM ; [facility] Joint Pain in the Right Knee 02/12/2019 Timothy Foster MD Active Last Documented On 9 10:35AM ; [facility] Joint Pain in the Right Hip 02/12/2019 Timothy wheeler MD Active Last Documented On 9 10:35AM ; [facility] Joint Pain, Localized in the Shoulder 05/29/2018 Bautista Luis MD Active Last Documented On 9 10:31AM ; [facility] Plan of Treatment Findings Encounter Date Patient screened for future fall risk: documentation of any fall with injury in past year Follow Up with Jesus Espinosa MD 06/16/2024 Last Documented On 5 1:41PM ; [facility] Patient screened for future fall risk: documentation of any fall with injury in past year Follow Up with Chandra Grewal PA-C 01/30/2024 Last Documented On 4 4:58PM ; [facility] Pending Tests Order Diagnosis Results Due Ordering P [facility] Radiology - MRI MRI R Knee Derang of medial meniscus due to old tear/inj, right knee 05/27/19 Timothy Foster MD Last Documented On 0 12:04PM ; [facility] Radiology - CT Scan Shoulder Overweight 03/30/23 Bari Robles PA-C Last Documented On 3 11:26AM ; [facility] Referrals To Diagnosis Consult with Orthopedic Overweig ht Note: REFFERAL TO SHARON Orozco @ [facility] ) Last Documented On 4 4:58PM ; [facility] Consult with Orthopedic Overweig ht Note: Dr Sharon [facility] // cc Last Documented On 4 11:37AM ; [facility] Future Appointments Date Time Location Provi kiera Follow Up 08/18/2024 1:00PM [facility] RAFIQ Larson PA-C Last Documented On 5 1:45PM ; [facility] Instructions to patient Lose weight Last Documented On 5 12:49PM ; [facility] Lose weight Last Documented On 5 12:50PM ; [facility] Lose weight Last Documented On 4 2:44PM ; [facility] Lose weight Last Documented On 4 2:05PM ; [facility] Lose weight Last Documented On 3 10:32AM ; [facility] Lose weight Last Documented On 3 8:11AM ; [facility] Lose weight Last Documented On 2 10:02AM ; [facility] Lose weight Last Documented On 2 8:00AM ; [facility] Instructions for patient see pcp for bp Last Documented On 0 1:11PM ; [facility] Instructions for patient see pcp for bp Last Documented On 0 9:14AM ; [facility] Instructions for patient see pcp for bp Last Documented On 0 10:40AM ; [facility] Instructions for patient see pcp for bp Last Documented On 0 9:04AM ; [facility] Instructions for patient see pcp for bp Last Documented On 0 4:27PM ; [facility] Instructions for patient see pcp for bp Last Documented On 0 1:34PM ; [facility] Instructions for patient see pcp for bp Last Documented On 9 1:04PM ; [facility] Instructions for patient see pcp for bp Last Documented On 9 10:36AM ; [facility] Instructions for patient see pcp for bp Last Documented On 9 1:20PM ; [facility] Instructions for patient see pcp for bp Last Documented On 9 8:57AM ; [facility] Instructions for patient see pcp for bp Last Documented On 9 8:46AM ; [facility] Instructions for patient see pcp for bp Last Documented On 9 1:46PM ; [facility] Instructions for patient to see pcp for bp Last Documented On 9 2:20PM ; [facility] Instructions for patient see pcp for bp Last Documented On 9 2:29PM ; [facility] Instructions for patient see pcp for bp Last Documented On 9 1:12PM ; [facility] Assessments Includes: Assessments for all patient encounters Findings Encounter Date Overweight Follow Up with Chandra Grewal PA-C 01/30/2024 Last Documented On 4 4:58PM ; [facility] Overweight Follow Up with Bautista maldonado MD 04/30/2023 Last Documented On 4 3:50PM ; [facility] Overweight Physician Specified with Funmi Robles PA-C 03/16/2023 Last Documented On 3 11:26AM ; [facility] Instructions Includes: Instructions for all patient encounters Instructions to patient Lose weight Last Documented On 5 12:49PM ; [facility] Lose weight Last Documented On 5 12:50PM ; [facility] Lose weight Last Documented On 4 2:44PM ; [facility] Lose weight Last Documented On 4 2:05PM ; [facility] Lose weight Last Documented On 3 10:32AM ; [facility] Lose weight Last Documented On 3 8:11AM ; [facility] Lose weight Last Documented On 2 10:02AM ; [facility] Lose weight Last Documented On 2 8:00AM ; [facility] Instructions for patient see pcp for bp Last Documented On 0 1:11PM ; [facility] Instructions for patient see pcp for bp Last Documented On 0 9:14AM ; [facility] Instructions for patient see pcp for bp Last Documented On 0 10:40AM ; [facility] Instructions for patient see pcp for bp Last Documented On 0 9:04AM ; [facility] Instructions for patient see pcp for bp Last Documented On 0 4:27PM ; [facility] Instructions for patient see pcp for bp Last Documented On 0 1:34PM ; [facility] Instructions for patient see pcp for bp Last Documented On 9 1:04PM ; [facility] Instructions for patient see pcp for bp Last Documented On 9 10:36AM ; [facility] Instructions for patient see pcp for bp Last Documented On 9 1:20PM ; [facility] Instructions for patient see pcp for bp Last Documented On 9 8:57AM ; [facility] Instructions for patient see pcp for bp Last Documented On 9 8:46AM ; [facility] Instructions for patient see pcp for bp Last Documented On 9 1:46PM ; [facility] Instructions for patient to see pcp for bp Last Documented On 9 2:20PM ; [facility] Instructions for patient see pcp for bp Last Documented On 9 2:29PM ; [facility] Instructions for patient see pcp for bp Last Documented On 9 1:12PM ; [facility] Medical Equipment - Implanted Devices Includes: Current and historical Devices No Medical Equipment Recorded Medications Includes: Current and historical Medications Current Medications (continue as prescribed) Acyclovir 400 MG Oral Tablet 01/27/2024 Provider: Diagnosis: Last Documented On 4 2:44PM By Karen [facility] oxyCODONE HCl 10 MG Oral Tablet 01/22/2024 Provider: Diagnosis: Last Documented On 4 2:44PM By Karen Ornelas ; [facility] Dicyclomine HCl 10 MG Oral Capsule 01/22/2024 Provid er: CASTILLO ESPINO II, MD Diagnosis: Last Documented On 4 2:44PM By Karen Ornelas ; [facility] tiZANidine HCl 4 MG Oral Tablet 01/18/2024 Provider: Diagnosis: Last Documented On 4 2:44PM By Karen Ornelas ; [facility] Sulfamethoxazole-Trimethoprim 400-80 MG Oral Tablet Provider: Diagnosis: Last Documented On 4 2:44PM By Karen Ornelas ; [facility] DULoxetine HCl 60 MG Oral Capsule Delayed Releas e Particles 01/18/2024 Provider: Diagnosis: Last Documented On 4 2:44PM By Karen Ornelas ; [facility] HYDROmorphone HCl 4 MG Oral Tablet 01/08/2024 Provid er: Diagnosis: Last Documented On 4 2:44PM By Karen Ornelas ; [facility] Fluticasone-Salmeterol 100-5 0 MCG/ACT Inhalation Aerosol Powder Breath Activated 01/08/2024 Provider: Diagnosis: Last Documented On 4 2:44PM By Karen Ornelas ; [facility] Atorvastatin Calcium 40 MG Oral Tablet 01/08/2024 Pr ovider: Diagnosis: Last Documented On 4 2:44PM By Karen Ornelas ; [facility] Levothyroxine Sodium 25 MCG Oral Tablet 12/31/2023 P rovider: Diagnosis: Last Documented On 4 2:44PM By Karen Ornelas ; [facility] Eliquis 5 MG Oral Tablet 12/31/2023 Provider: Diagnosis: Last Documented On 4 2:44PM By Karen Ornelas ; [facility] Atorvastatin Calcium 20 MG Oral Tablet 12/31/2023 Pr ovider: Diagnosis: Last Documented On 4 2:44PM By Karen Ornelas ; [facility] amLODIPine Besylate 5 MG Oral Tablet 12/10/2023 Prov ider: Diagnosis: Last Documented On 4 2:44PM By Karen Ornelas ; [facility] Albuterol Sulfate 108 (90 Ba se) MCG/ACT Inhalation Aerosol Powder Breath Activated 06/15/2022 Provider: Diagnosis: Last Documented On 3 8:21AM By Merari Parson ; [facility] Cymbalta 20 MG Oral Capsule Delayed Release Particles 06/15/2022 Provider: Diagnosis: Last Documented On 3 8:21AM By Merari Parson ; [facility] Estradiol 0.1 MG/GM Vaginal Cream 06/15/2022 Provide r: Diagnosis: Last Documented On 3 9:04AM By Merari Parson ; [facility] Retin-A 0.1% External Cream 06/15/2022 Provider: Diagnosis: Last Documented On 3 9:03AM By Merari Parson ; [facility] Nystatin-Triamcinolone 304035-0.1 UNIT/GM-% External C ream 06/15/2022 Provider: Diagnosis: Last Documented On 3 9:02AM By Merari Parson ; [facility] Triamcinolone Acetonide 0.1% External Cream 06/15/2022 Provider: Diagnosis: Last Documented On 3 8:29AM By Merari Parson ; [facility] oxyCODONE HCl 10 MG Oral Tablet 06/15/2022 Provider: Diagnosis: Last Documented On 3 8:27AM By Merari Parson ; [facility] Losartan Potassium 50 MG Oral Tablet 06/15/2022 Prov ider: Diagnosis: Last Documented On 3 8:26AM By Merari Parson ; [facility] Fluticasone-Salmeterol 250-5 0 MCG/ACT Inhalation Aerosol Powder Breath Activated 06/15/2022 Provider: Diagnosis: Last Documented On 3 8:25AM By Merari Parson ; [facility] Diphenoxylate-Atropine 2.5-0.025 MG Oral Tablet 2022 Provider: Diagnosis: Last Documented On 3 8:22AM By Merari Parson ; [facility] Acyclovir 400 MG Oral Tablet 10/05/2020 Provider: Diagnosis: Last Documented On 1 3:19PM By Adele Trevino ; [facility] Past Medications on file Acyclovir 400 MG Oral Tablet 03/12/2023 - 01/30/2024 Richardson flores: Chandra Leahy MD Diagnosis: Last Documented On 4 2:43PM By Karen Ornelas ; [facility] Eliquis 5 MG Oral Tablet 03/12/2023 - 01/30/2024 Provi kiera: Chandra Leahy MD Diagnosis: Last Documented On 4 2:43PM By Karen Ornelas ; [facility] Diphenoxylate-Atropine 2.5-0.025 MG Oral Tablet 03/09/2023 - 01/30/2024 Provider: Diagnosis: Last Documented On 4 2:43PM By Karen Ornelas ; [facility] OxyCONTIN 20 MG Oral Tablet ER 12 Hour Abuse-Deterrent 03/09/2023 - 01/30/2024 Provider: Diagnosis: Last Documented On 4 2:43PM By Karen Ornelas ; [facility] Sulfamethoxazole-Trimethopri m 400-80 MG Oral Tablet 03/09/2023 - 01/30/2024 Provider: Diagnosis: Last Documented On 4 2:43PM By Karen Ornelas ; [facility] Potassium Chloride Amy ER 2 0 MEQ Oral Tablet Extended Release 03/01/2023 - 01/30/2024 Provider: MADI CHAPIN MD Diagnosis: Last Documented On 4 2:43PM By Karen Ornelas ; [facility] Levothyroxine Sodium 25 MCG Oral Tablet 03/01/2023 - 01/30/2024 Provider: Chandra Leahy MD Diagnosis: Last Documented On 4 2:43PM By Karen Ornelas ; [facility] amLODIPine Besylate 5 MG Oral Tablet 02/28/2023 - 01/02 Provider: Diagnosis: Last Documented On 4 2:43PM By Karen Ornelas ; [facility] Cephalexin 500 MG Oral Capsule 02/26/2023 - 01/30/2024 Provider: Diagnosis: Last Documented On 4 2:43PM By Karen Ornelas ; [facility] oxyCODONE HCl 10 MG Oral Tablet 02/23/2023 - Provider: Chandra Leahy MD Diagnosis: Last Documented On 4 2:43PM By Karen Ornelas ; [facility] oxyCODONE HCl 5 MG Oral Tablet 07/19/2022 - 07/29/2022 Provider: Jesus Zimmer MD Diagnosis: Take 1 tablet by mouth every 4-6 hrs for break through pain Last Documented On 3 11:00AM By Jesus Espinosa ; [facility] Meloxicam 15 MG Oral Tablet 07/03/2022 - 07/17/2022 Pr ovider: Jesus Espinosa MD Diagnosis: once a day Last Documented On 3 8:45AM By Barbara Correa ; [facility] Ondansetron HCl 4 MG Oral Tablet 06/30/2022 - 07/07/2022 Provider: Jesus Zimmer MD Diagnosis: 1 po q 6h prn nausea Last Documented On 3 1:35PM By Jesus Espinosa ; [facility] oxyCODONE HCl 5 MG Oral Tablet 06/30/2022 - 07/10/2022 Provider: Jesus Zimmer MD Diagnosis: Take 1 tablet by mouth every 4-6 hrs for break through pain Last Documented On 3 1:35PM By Jesus Espinosa ; [facility] Acetaminophen 500 MG Oral Tablet 06/30/2022 - 07/14/2022 Provider: Jesus Zimmer MD Diagnosis: Take 2 tablets by mouth every 8 hours Last Documented On 3 1:35PM By Jesus Espinosa ; [facility] Cefadroxil 500 MG Oral Capsule 06/30/2022 - 07/07/2022 Provider: Jesus Zimmer MD Diagnosis: Take 1 tablet by mouth every 12 hours for 7 days Last Documented On 3 1:35PM By Jesus Espinosa ; [facility] Aspirin EC 81 MG Oral Tablet Delayed Release 06/30/2022 - 08/11/2022 Provider: Jesus Espinosa MD Diagnosis: Take 1 tablet by mouth every 12 hours for 42 days post op Last Documented On 3 1:35PM By Jesus Espinosa ; [facility] Vitamin D3 50 MCG (1999) Oral Tablet 06/20/2022 - 07/20/2022 Provider: Diana ABDI Diagnosis: once a day Last Documented On 3 1:03PM By Diana Rosas ; [facility] EC-RX Estradiol 0.4% Transdermal Cream 06/15/2022 - Provider: Diagnosis: Last Documented On 3 9:04AM By Merari Parson ; [facility] Retin-A 0.025% External Cream 06/15/2022 - 06/15/2022 Provider: Diagnosis: Last Documented On 3 9:03AM By Merari Parson ; [facility] Nystatin [id number] UNIT/GM External Cream 06/15/2022 - Provider: Diagnosis: Last Documented On 3 9:03AM By Merari Parson ; [facility] amLODIPine Besylate 10 MG Or al Tablet 02/10/2022 - 01/30/2024 Provider: MADI CHAPIN MD Diagnosis: Last Documented On 4 2:44PM By Karen Ornelas ; [facility] Atorvastatin Calcium 20 MG O ral Tablet 01/30/2022 - 01/30/2024 Provider: MADI CHAPIN MD Diagnosis: Last Documented On 4 2:44PM By Karen Ornelas ; [facility] cloNIDine HCl 0.1 MG Oral Tablet 01/10/2022 - 01/30/20 24 Provider: Diagnosis: Last Documented On 4 2:44PM By Karen Ornelas ; [facility] Potassium Chloride Amy ER 2 0 MEQ Oral Tablet Extended Release 11/28/2021 - 01/30/2024 Provider: MADI CHAPIN MD Diagnosis: Last Documented On 4 2:44PM By Karen Ornelas ; [facility] cloNIDine HCl 0.1 MG Oral Tablet 10/05/2020 - 11/05/19 21 Provider: Diagnosis: Last Documented On 1 3:16PM By Adele Trevino ; [facility] Fetzima 40mg Oral Tablet 10/05/2020 - 06/15/2022 Provi kiera: Diagnosis: Last Documented On 3 8:29AM By Merari Parson ; [facility] cloNIDine HCl 0.1 MG Oral Tablet 10/05/2020 - 10/06/19 21 Provider: Diagnosis: Last Documented On 1 3:16PM By Adele Trevino ; [facility] Acyclovir 400 MG Oral Tablet 10/05/2020 - 10/05/2020 Richardson flores: Diagnosis: Last Documented On 1 3:19PM By Adele Trevino ; [facility] Vicodin HP 10-300 MG Oral Tablet 10/05/2020 - 06/16/19 23 Provider: Diagnosis: Last Documented On 3 8:30AM By Merari Parson ; [facility] Atorvastatin Calcium 20 MG Oral Tablet 10/05/2020 - Provider: Diagnosis: Last Documented On 1 3:18PM By Adele Trevino ; [facility] Atorvastatin Calcium 20 MG O ral Tablet 10/05/2020 - 11/04/2020 Provider: MADI CHAPIN MD Diagnosis: Last Documented On 1 3:18PM By Adele Trevino ; [facility] Percocet 7.5-325 MG Oral Tablet 10/07/2019 - Provider: Timothy Foster MD Diagnosis: 1 every 4 - 6 hours prn post op pain Last Documented On 3:16PM By Adele Trevino ; [facility] Zofran 4 MG Oral Tablet 09/24/2019 - 10/05/2020 Provid er: Timothy Foster MD Diagnosis: 1 tab every 6 hrs prn pain Last Documented On 1 3:17PM By Adele Trevino ; [facility] Keflex 250 MG Oral Capsule 09/24/2019 - 10/05/2020 Pro vider: Timothy Foster MD Diagnosis: four times a day Last Documented On 1 3:17PM By Adele Trevino ; [facility] Aspirin 325 MG Oral Tablet 09/24/2019 - 10/05/2020 Pro vider: Timothy Foster MD Diagnosis: twice a day Last Documented On 1 3:16PM By Adele Trevino ; [facility] Xarelto 10 MG Oral Tablet 09/24/2019 - 10/05/2020 Prov ider: Timothy Foster MD Diagnosis: once a day for first seven d ays after joint replacement, then transiition to aspirin Last Documented On 3:17PM By Adelemaribel Trevino ; [facility] Percocet 7.5-325 MG Oral Tablet 09/24/2019 - Provider: Timothy Foster MD Diagnosis: 1 every 4 - 6 hours prn post op pain Last Documented On 3:16PM By Adelemaribel Trevino ; [facility] Mupirocin 2% External Ointment 07/31/2019 - 10/05/2020 Provider: Timothy Foster MD Diagnosis: take as directed Apply cream twice a day to each nostril five days prior to surgery. Last Documented On 3:17PM By Adelemaribel Trevino ; [facility] [place] 10-325 MG Oral Tablet 04/25/2019 - 10/05/2020 Pr ovider: Timothy Foster MD Diagnosis: [id number] prn post op pain Last Documented On 3:17PM By Adelemaribel Trevino ; [facility] Nystatin [id number] UNIT/GM Exte rnal Cream 01/20/2019 - 10/05/2020 Provider: MADI CHAPIN MD Diagnosis: Last Documented On 3:18PM By Adelemaribel Trevino ; [facility] Clindamycin-Tretinoin 1.2-0. 025% External Gel 01/20/2019 - 10/05/2020 Provider: MADI CHAPIN MD Diagnosis: Last Documented On 3:19PM By Adelemaribel Trevino ; [facility] Estradiol 0.025 MG/24HR Saba sdermal Patch Twice Weekly 01/17/2019 - 10/05/2020 Provider: Diagnosis: Last Documented On 3:19PM By Adelemaribel Trevino ; [facility] Lisinopril 5MG Oral Tablet 08/12/2018 - 10/05/2020 Pro vider: MADI CHAPIN MD Diagnosis: Last Documented On 3:18PM By Adele Trevino ; [facility] oxyCODONE HCl 5MG Oral Tablet 07/22/2018 - 10/05/2020 Provider: Bautista hcristie MD Diagnosis: 1-2 po q 4-6h prn post op pain Last Documented On 1 3:17PM By Adele Trevino ; [facility] oxyCODONE HCl 5MG Oral Tablet 07/17/2018 - 10/05/2020 Provider: Bautista christie MD Diagnosis: 1-2 po q 4-6h prn post op pain Last Documented On 1 3:17PM By Adele Trevino ; [facility] Zofran 4MG Oral Tablet 07/17/2018 - 10/05/2020 Provide r: Bautista Luis MD Diagnosis: Take 1 tablet every 8 hrs pr n pain Take 1 tablet every 8 hrs prn post op nausea Last Documented On 1 3:17PM By Adele Trevino ; [facility] Benzoyl Peroxide Wash 5% External Liquid 07/17/2018 - 10/05/2020 Provider: Bautista christie MD Diagnosis: use as directed by Dr. Luis Last Documented On 1 3:17PM By Adele Trevino ; [facility] Acyclovir 400MG Oral Tablet 05/29/2018 - 10/05/2020 Pr ovider: Diagnosis: Last Documented On 1 3:19PM By Adele Trevino ; [facility] Estradiol 1MG Oral Tablet 05/29/2018 - 10/05/2020 Prov ider: Diagnosis: Last Documented On 1 3:18PM By Adele Trevino ; [facility] Lomotil 2.5-0.025MG Oral Tablet 05/29/2018 - Provider: Diagnosis: Last Documented On 1 3:17PM By Adele Trevino ; [facility] Atorvastatin Calcium 20MG Or al Tablet 05/14/2018 - 10/05/2020 Provider: MADI CHAPIN MD Diagnosis: Last Documented On 1 3:18PM By Adelemaribel Trevino ; [facility] Nortriptyline HCl 50MG Oral Capsule 05/03/2018 - 10/05 Provider: Diagnosis: Last Documented On 1 3:16PM By Adele Trevino ; [facility] cloNIDine HCl 0.1MG Oral Tablet 05/03/2018 - Provider: Diagnosis: Last Documented On 1 3:16PM By Adele Trevino ; [facility] Furosemide 40MG Oral Tablet 05/01/2018 - 10/05/2020 Pr ovider: MADI CHAPIN MD Diagnosis: Last Documented On 1 3:16PM By Adele Trevino ; [facility] DULoxetine HCl 30MG Oral Cap shashi Delayed Release Particles 04/30/2018 - 10/05/2020 Provider: Diagnosis: Last Documented On 1 3:16PM By Adele Trevino ; [facility] traMADol HCl 50MG Oral Tablet 04/30/2018 - 10/05/2020 Provider: Baldemar Duckworth MD Diagnosis: Last Documented On 1 3:16PM By Adele Trevino ; [facility] Medications Administered Includes: Administered Medications in patient's chart No Administered Medications Recorded Vital Signs Includes: Vital Signs from 07/11/2023 through 07/10/2024 Vital Name 06/16/2024 01:12P 01/30/2024 02: 45P Height (in) 62 62 Weight (lb) 160 140 Body Mass Index 29.3 25.6 Body Surface Area 1.7 1.6 Note: jaa ct Last Documented: On 06/16/2024 1:12PM ; [facility] On 01/30/2024 3:32PM ; [facility] Results Includes: Results from 07/11/2023 through 07/10/2024 No Results Recorded For Specified Dates History of Present Illness History of Present Illness not supported for this document type No History of Present Illness Recorded Social History Description Last Updated Recent change in diet 01/30/2024 Last Documented On 4 4:58PM ; [facility] Not a current smoker. 01/30/2024 Last Documented On 4 4:58PM ; [facility] Tobacco non-user 02/17/2022 Last Documented On 2 6:54AM ; [facility] Caffeine use 10/05/2020 Last Documented On 1 1:17PM ; [facility] Exercising regularly 10/05/2020 Last Documented On 1 1:17PM ; [facility] No recent change in diet 10/05/2020 Last Documented On 1 1:17PM ; [facility] Not a current smoker. 10/05/2020 Last Documented On 1 1:17PM ; [facility] Not using alcohol 10/05/2020 Last Documented On 1 1:17PM ; [facility] Not using drugs 10/05/2020 Last Documented On 1 1:17PM ; [facility] Non-smoker 10/05/2020 Last Documented On 1 1:17PM ; [facility] Not a current smoker 05/29/2018 Last Documented On 9 9:38AM ; [facility] No tobacco use 05/29/2018 Last Documented On 9 9:38AM ; [facility] Smoking status : Former smoker 9 Last Documented On 9 9:38AM ; [facility] Procedures and Surgical History Includes: Procedures from 07/11/2023 through 07/10/2024 Procedures Code Diagnosis Performing Provider Service Location Service Date HIP BILATERAL 13243 Unilateral prima ry osteoarthritis, right hip, Trochanteric bursitis, left hip Jesus Espinosa MD [facility] 06/16/2024 Last Documented On 5 1:32PM ; [facility] X-RAY EXAM OF SHOULDER 2-3 VIEWS (LEFT) 56266 Pain in left shoulder, Presence of left artificial shoulder joint Chandra Grewal PA-C [facility] 01/30/2024 Last Documented On 4 10:59AM ; [facility] Surgical History Last Updated History of History of Arthroscopy 2023 Last Documented On 4 4:58PM ; [facility] History of Previous Fractures 01/30/2024 Last Documented On 4 4:58PM ; [facility] History of total hip replacement 024 Last Documented On 4 4:58PM ; [facility] History of total knee arthroplasty 01/29 Last Documented On 4 4:58PM ; [facility] Past Surgical History: 03/16/2023 Last Documented On 3 11:26AM ; [facility] Medical History Includes: Medical History in patient's chart Description Last Updated History of asthma 01/30/2024 Last Documented On 4 4:58PM ; [facility] History of History of Blood Transfusion 01/30/2024 Last Documented On 4 4:58PM ; [facility] History of Hypertension 01/30/2024 Last Documented On 4 4:58PM ; [facility] History of Anemia 03/16/2023 Last Documented On 3 11:26AM ; [facility] History of arthritis 03/16/2023 Last Documented On 3 11:26AM ; [facility] History of History of Blood Clots 2022 Last Documented On 3 11:26AM ; [facility] Anemia 10/05/2020 Last Documented On 1 1:17PM ; [facility] Arthritis 10/05/2020 Last Documented On 1 1:17PM ; [facility] History of Arthroscopy 10/05/2020 Last Documented On 1 1:17PM ; [facility] Recent immunization for flu 10/05/2020 Last Documented On 1 1:17PM ; [facility] Recent immunization for pneumococcal pne umonia 10/05/2020 Last Documented On 1 1:17PM ; [facility] Shoulder arthroplasty 10/05/2020 Last Documented On 1 1:17PM ; [facility] Total hip replacement 10/05/2020 Last Documented On 1 1:17PM ; [facility] Total knee arthroplasty 10/05/2020 Last Documented On 1 1:17PM ; [facility] arthroscopy ~total joint replacement ~hi gh cholesterol 05/29/2018 Last Documented On 9 9:38AM ; [facility] Arthritic joint problems 05/29/2018 Last Documented On 9 9:38AM ; [facility] History of depression 05/29/2018 Last Documented On 9 9:38AM ; [facility] History of hepatitis C 05/29/2018 Last Documented On 9 9:38AM ; [facility] Family History Includes: Family History in patient's chart Description Last Updated Family history of cancer 10/05/2020 Last Documented On 1 1:17PM ; [facility] Family history of osteoporosis 1 Last Documented On 1 1:17PM ; [facility] Family history of thromboembolic disease 05/29/2018 Last Documented On 9 9:38AM ; [facility] No significant family history maternal- Breast cancer 05/29/2018 Last Documented On 9 9:38AM ; [facility] Review of Systems Review of Systems not supported for this document type No Review of Systems Recorded Mental Status Description Anxiety Functional Status No Functional Status Recorded Physical Exam Physical Exam not supported for this document type No Physical Exam Recorded Allergies Includes: Active, inactive, and resolved Allergies Substance Type Reaction Onset Date Resolved Date Statu s Levaquin Allergy 06/19/2022 Active Last Documented On 06/16/2024 12:48PM ; [facility] Note: joint pain- Major fluoroquinolones Allergy 09/04/2018 Ac tive Last Documented On 5 12:48PM ; [facility] Encounters Includes: Encounters from 07/11/2023 through 07/10/2024 Encounter Provider Location Date Check-In Time Check-Out Time Diagnosis Follow Up Jesus Espinosa MD [facility] 06/17/19 25 12:43PM 1:40PM Follow Up Chandra Grewal PA-C [facility] 01/30/20 24 2:50PM 3:29PM Overweight Insurance Includes: Active Insurance Policies Plan Name Member ID Group # Subscriber Relationship Effect sherman Dates 1 - Medicare Part B [facility] [id number] Farrah Atkinson Self 4 - Unknown 2 - [facility] [id number] Farrah Atkinson Self 05/03/2019 - Unknown Clinical Notes Includes: Signed Clinical Notes starting from 03/16/2022 * Progress note Date Encounter Last Documented by 06/16/2024 Follow Up Last documented on 06/16/2024; 1:41 PM, Jesus Espinosa MD; [facility] Active Problems & Conditions - Joint Pain in the Left Knee - Joint Pain in the Right Hip - Joint Pain in the Right Knee - Joint Pain, Localized in the Left Shoulder - Joint Pain, Localized in the Shoulder Chief Complaint The Chief Complaint is: L hip pain. Referred Here Referred by self. History of Present Illness Farrah Atkinson is a 73 year old female. - Symptoms Catching. - [...] of Injections Medications used for this condition: 73 year old female presents with left hip pain. She has a history of left total hip replacement done in 2007 in [place]. She states she is having groin pain when getting in and out of her car as well as when she is going up or down stairs. She describes the nature of her pain to be stabbing. She had some falls a month or two ago. She denies any radicular symptoms or numbness and tingling. She is known to me for right total hip arthroplasty done on 07/03/2022, which she continues to do well with. Current Medication - Acyclovir 400 MG Oral [...] directed 0 days, 0 refills - Nystatin-Triamcinolone 167394-0.1 UNIT/GM-% External Cream take as directed 0 [...] Diagnoses: Asthma History of Blood Clots. Anemia. History of Blood Transfusion Hypertension. Hepatitis C. Arthritis. Depression Arthroscopy total joint replacement high cholesterol. Surgical: - Past Surgical History: - Previous Fractures - History of Arthroscopy - Total hip replacement - Total knee [...] - fluoroquinolones - Levaquin Family History Cancer No significant family history maternal- Breast cancer Thromboembolic disease Osteoporosis Review Of Systems Systemic: [...] and no abdominal pain. No Indigestion, no Peptic Ulcer, no GI Stomach Bleed, no Ulcers, and no Acid Reflux. Endocrine: No hot flashes, no [...] allergic reaction. Physical Findings - Vitals taken 06/16/2024 01:12 pm jaa Height 62 in Weight 160 lbs Body Mass Index 29.3 kg/m2 Body Surface Area 1.7 m2 Standard Measurements: - Patient was overweight. Left Hip: Patient walks with a slight antalgic gait Incisions well-healed there is no signs of erythema and induration or infection Hip range of motion is flexion 120- internal rotation to 30- external rotation to 90- Tenderness to palpation of greater trochanter, none over the ASIS Pain with resisted hip abduction patient has negative Herb test negative Stinchfield and negative internal rotation flexion test No Tenderness to palpation about abdomen or pubic symphysis and no signs of hernia Anterior skin over hip is intact Negative straight leg raise Patient has 5 out of 5 motor strength in tib ant and gastroc sensory is intact to SPN TPN and tibial nerves there is a 2+ dorsalis pedis pulse Right hip: Incisions well-healed there is no signs of erythema and induration or infection pain-free range of motion of the hip Patient has 5 out of 5 motor strength in tib ant and gastroc sensory is intact to SPN TPN and tibial nerves a 2+ dorsalis pedis pulse No signs of DVT Tests XR Hip (Bilateral): X-rays performed today AP pelvis and AP lateral of the hip show implant in good position no signs of loosening or osteolysis leg length and offset appear symmetric Assessment 73 year old female with left greater troch bursitis. Her implants look well- fixed and in good alignment without interval changes compared to her hip x-rays from 2 years ago. We will have her start with a round of physical therapy for this and if her symptoms don't improve, we can give her an injection to help with her symptoms. We will make her an appointment to return in 2 months for reassessment, if she is doing well, she can call to cancel that appointment. All questions have been answered. Previous Tests Imaging: X-Ray: X-ray. MRI Scan: An MRI was performed. Counseling/Education - Lose weight - Lose weight Plan - Patient screened for future fall risk: [...] software and may contain errors and omissions. Transcribed by Gutierrez Bradley Practice Management Use of tobacco assessment performed and patient screened for future fall risk documentation of any fall with injury in past year Review of medications documented. Care Team - Chandra Leahy MD - PHYSICIAN/ALLERGY/IMMUNOLOGY * Progress note Date Encounter Last Documented by 01/30/2024 Follow Up Last documented on 01/30/2024; 4:58 PM, Chandra Grewal PA-C; [facility] Active Problems & Conditions - Joint [...] will refer her to Dr. Mixon in [place] for further evaluation and treatment. Current Medication [...] directed 0 days, 0 refills - Nystatin-Triamcinolone 496987-3.1 UNIT/GM-% External Cream take as directed 0 [...] Instructions: REFFERAL TO SHARON MIXON @ [facility] ) Referral/Orthopedic: Consult with Orthopedic Instructions: Dr Sharon [...] Care Team - Chandra Leahy MD - PHYSICIAN/ALLERGY/IMMUNOLOGY
--- OUTSIDE RECORDS SUMMARY | 2024-07-10 19:37 | XMS_ITS | Clinical Summary ---
Author Organization [facility] Address [address] [place] [address] Phone Care Team Providers Care Marketing Production Specialist Name Role Phone Tosin VARGAS, Chandra Flores Unavailable [phone] Chel VARGAS, Davidson Unavailable [phone] Timothy Granda Primary Care Provider Unavailabl e Reason for Visit and Chief Complaint INJECTION Problems Includes: Problems addressed during this encounter and other active Problems All Visits Onset Date Resolved Date Provider Condition S tatus Joint Pain, Localized in the Left Shoulder 03/16/2023 Funmi Robles PA-C Active Last Documented On 3 10:30AM ; [facility], [facility] Joint Pain in the Left Knee 03/31/2022 Jesus Espinosa MD Active Last Documented On 2 10:01AM ; [facility] Joint Pain in the Right Knee 02/12/2019 Timothy Foster MD Active Last Documented On 9 10:35AM ; [facility] Joint Pain in the Right Hip 02/12/2019 Timothy wheeler MD Active Last Documented On 9 10:35AM ; [facility], [facility] Joint Pain, Localized in the Shoulder 05/29/2018 Bautista Luis MD Active Last Documented On 9 10:31AM ; [facility], [facility] Plan of Treatment Future Appointments Date Time Location Provi kiera Follow Up 08/18/2024 1:00PM [facility] Bryant Larson PA-C Last Documented On 5 1:45PM ; [facility], [facility] Assessments Includes: Assessments from this encounter No Assessments Recorded Medical Equipment - Implanted Devices Includes: Current Devices No Medical Equipment Recorded Medications Includes: Medications discussed during this encounter and other current Medications Current Medications (continue as prescribed) Acyclovir 400 MG Oral Tablet 01/27/2024 Provider: Diagnosis: Last Documented On 4 2:44PM By Karen Ornelas ; [facility], [facility] oxyCODONE HCl 10 MG Oral Tablet 01/22/2024 Provider: Diagnosis: Last Documented On 4 2:44PM By Karen Ornelas ; [facility], [facility] Dicyclomine HCl 10 MG Oral Capsule 01/22/2024 Provid er: CASTILLO ESPINO II, MD Diagnosis: Last Documented On 4 2:44PM By Karen Ornelas ; [facility], [facility] tiZANidine HCl 4 MG Oral Tablet 01/18/2024 Provider: Diagnosis: Last Documented On 4 2:44PM By Karen Sawyer [facility], [facility] Sulfamethoxazole-Trimethoprim 400-80 MG Oral Tablet Provider: Diagnosis: Last Documented On 4 2:44PM By Karen Ornelas ; [facility], [facility] DULoxetine HCl 60 MG Oral Capsule Delayed Releas e Particles 01/18/2024 Provider: Diagnosis: Last Documented On 4 2:44PM By Karen Ornelas ; [facility], [facility] HYDROmorphone HCl 4 MG Oral Tablet 01/08/2024 Provid er: Diagnosis: Last Documented On 4 2:44PM By Karen Ornelas ; [facility], [facility] Fluticasone-Salmeterol 100-5 0 MCG/ACT Inhalation Aerosol Powder Breath Activated 01/08/2024 Provider: Diagnosis: Last Documented On 4 2:44PM By Karen Ornelas ; [facility], [facility] Atorvastatin Calcium 40 MG Oral Tablet 01/08/2024 Pr ovider: Diagnosis: Last Documented On 4 2:44PM By Karen Ornelas ; [facility], [facility] Levothyroxine Sodium 25 MCG Oral Tablet 12/31/2023 P rovider: Diagnosis: Last Documented On 4 2:44PM By Karen Ornelas ; [facility], [facility] Eliquis 5 MG Oral Tablet 12/31/2023 Provider: Diagnosis: Last Documented On 4 2:44PM By Karen Ornelas ; [facility], [facility] Atorvastatin Calcium 20 MG Oral Tablet 12/31/2023 Pr ovider: Diagnosis: Last Documented On 4 2:44PM By Karen Ornelas ; [facility], [facility] amLODIPine Besylate 5 MG Oral Tablet 12/10/2023 Prov ider: Diagnosis: Last Documented On 4 2:44PM By Karen Ornelas ; [facility], [facility] Albuterol Sulfate 108 (90 Ba se) MCG/ACT Inhalation Aerosol Powder Breath Activated 06/15/2022 Provider: Diagnosis: Last Documented On 3 8:21AM By Merari Parson ; [facility], [facility] Cymbalta 20 MG Oral Capsule Delayed Release Particles 06/15/2022 Provider: Diagnosis: Last Documented On 3 8:21AM By Merari Parson ; [facility], [facility] Estradiol 0.1 MG/GM Vaginal Cream 06/15/2022 Provide r: Diagnosis: Last Documented On 3 9:04AM By Merari Parson ; [facility], [facility] Retin-A 0.1% External Cream 06/15/2022 Provider: Diagnosis: Last Documented On 3 9:03AM By Merari Parson ; [facility], [facility] Nystatin-Triamcinolone 259156-6.1 UNIT/GM-% External C ream 06/15/2022 Provider: Diagnosis: Last Documented On 3 9:02AM By Merari Parson ; [facility], [facility] Triamcinolone Acetonide 0.1% External Cream 06/15/2022 Provider: Diagnosis: Last Documented On 3 8:29AM By Merari Parson ; [facility], [facility] oxyCODONE HCl 10 MG Oral Tablet 06/15/2022 Provider: Diagnosis: Last Documented On 3 8:27AM By Merari Parson ; [facility] Losartan Potassium 50 MG Oral Tablet 06/15/2022 Prov ider: Diagnosis: Last Documented On 3 8:26AM By Merari Parson ; [facility] Fluticasone-Salmeterol 250-5 0 MCG/ACT Inhalation Aerosol Powder Breath Activated 06/15/2022 Provider: Diagnosis: Last Documented On 3 8:25AM By Merari Parson ; [facility] Diphenoxylate-Atropine 2.5-0.025 MG Oral Tablet 2022 Provider: Diagnosis: Last Documented On 3 8:22AM By Merari Parson ; [facility] Acyclovir 400 MG Oral Tablet 10/05/2020 Provider: Diagnosis: Last Documented On 1 3:19PM By Adele Trevino ; [facility] Medications Administered Includes: Administered Medications from this encounter No Administered Medications Recorded Results Includes: Results discussed during this encounter No Results Recorded For Specified Dates History of Present Illness Includes: History of Present Illness from this encounter No History of Present Illness Recorded Social History No Social History Recorded - Smoking Status Unknown Medical History Includes: Medical History addressed during this encounter No Medical History Recorded Family History Includes: Family History addressed during this encounter No Family History Recorded Review of Systems Includes: Review of Systems from this encounter No Review of Systems Recorded Mental Status Includes: Mental Status from this encounter No Mental Status Recorded Functional Status Includes: Functional Status from this encounter No Functional Status Recorded Physical Exam Includes: Physical Exam from this encounter Allergies Includes: Active Allergies Substance Type Reaction Onset Date Resolved Date Statu s Levaquin Allergy 06/19/2022 Active Last Documented On 06/16/2024 12:48PM ; [facility] Note: joint pain- Major fluoroquinolones Allergy 09/04/2018 Ac tive Last Documented On 5 12:48PM ; [facility] Encounters Encounter Provider Location Date Check-In Time Check-Out Time Diagnosis INJECTION Fab Li PA-C [facility] 04/12/19 24 2:28PM 2:56PM Insurance Includes: Active Insurance Policies Plan Name Member ID Group # Subscriber Relationship Effect sherman Dates 1 - Medicare Part B [facility] [place] [id number] Farrah Lopez Alfiead Self 4 - Unknown 2 - [facility] [id number] Farrah Atkinson Self 05/03/2019 - Unknown Clinical Notes Includes: Clinical Notes from this encounter * Progress note Date Encounter Last Documented by 04/12/2023 INJECTION Last documented on 04/12/2023; 3:29 PM, Fab Li PA-C; [facility], [facility] Physical Findings HPI: Left shoulder pain, total shoulder replacement. Risks and benefits were explained to the patient and they gave consent to proceed. Timeout procedure was performed confirming correct patient, procedure, and site of aspiration. Physical exam: Patient alert and oriented. Skin over anterior shoulder is clean and dry. No redness or rash Procedure: Left shoulder aspiration under fluoroscopy: The patient was brought to the fluoroscopic suite and informed of the risks and benefits of the procedure. The patient gave consent and elected to proceed. The overlying skin was cleaned and prepped in the usual sterile fashion with chlorhexadine. Fluoroscopy was utilized to guide a 3-1/2 inch 22-gauge spinal needle medial aspect of the humeral prosthesis. 10 mL of yellowish watery fluid was obtained. This was sent for laboratory studies. The patient tolerated the procedure well and there were no complications. The patient was seen by myself, Fab Li PA-C Electronically signed MARTINA Cunningham Notes This dictation was done with voice recognition software and may contain errors and omissions.
--- OUTSIDE RECORDS SUMMARY | 2024-07-10 19:37 | XMS_ITS | Clinical Summary ---
Author Organization [facility] , [facility] Address [address] [place] [address] Phone Care Team Providers Care Client Renewal Specialist Name Role Phone Tosin VARGAS, Chandra Flores Unavailable [phone] Chel VARGAS, Davidson Unavailable [phone] Timothy Granda Primary Care Provider Unavailabl e Reason for Visit and Chief Complaint The Chief Complaint is: L hip pain Problems Includes: Problems addressed during this encounter and other active Problems All Visits Onset Date Resolved Date Provider Condition S tatus Joint Pain, Localized in the Left Shoulder 03/16/2023 Funmi Robles PA-C Active Last Documented On 3 10:30AM ; [facility], [facility] Joint Pain in the Left Knee 03/31/2022 Jesus Espinosa MD Active Last Documented On 2 10:01AM ; [facility], [facility] Joint Pain in the Right Knee 02/12/2019 Timothy Foster MD Active Last Documented On 9 10:35AM ; [facility], [facility] Joint Pain in the Right Hip 02/12/2019 Timothy wheeler MD Active Last Documented On 9 10:35AM ; [facility], [facility] Joint Pain, Localized in the Shoulder 05/29/2018 Bautista Luis MD Active Last Documented On 9 10:31AM ; [facility], [facility] Plan of Treatment - Patient screened for future fall risk: documentation of any fall with injury in past year - Last Documented On 06/16/2024 1:41PM ; [facility], [facility] Fall Risk Assessment: This patient has been [...] with the patient. - Last Documented On 06/16/2024 1:41PM ; [facility] Future Appointments Date Time Location Provi kiera Follow Up 08/18/2024 1:00PM [facility] RAFIQ Larson PA-C Last Documented On 1:45PM ; [facility] Instructions to patient Lose weight Last Documented On 12:49PM ; [facility] Lose weight Last Documented On 12:50PM ; [facility] Assessments Includes: Assessments from this encounter Findings 73 year old female with left greater [...] that appointment. All questions have been answered. - Last Documented On 06/16/2024 1:41PM ; [facility] Instructions Includes: Instructions from this encounter Instructions to patient Lose weight Last Documented On 12:49PM ; [facility] Lose weight Last Documented On 12:50PM ; [facility], [facility] Medical Equipment - Implanted Devices Includes: Current Devices No Medical Equipment Recorded Medications Includes: Medications discussed during this encounter and other current Medications Current Medications (continue as prescribed) Acyclovir 400 MG Oral Tablet 01/27/2024 Provider: Diagnosis: Last Documented On 4 2:44PM By Karen Ornelas ; [facility] oxyCODONE HCl 10 MG Oral Tablet 01/22/2024 Provider: Diagnosis: Last Documented On 4 2:44PM By Karen Ornelas ; [facility] Dicyclomine HCl 10 MG Oral Capsule 01/22/2024 Provid er: CASTILLO ESPINO II, MD Diagnosis: Last Documented On 4 2:44PM By Karen Ornelas ; [facility] tiZANidine HCl 4 MG Oral Tablet 01/18/2024 Provider: Diagnosis: Last Documented On 4 2:44PM By Karen Ornelas ; [facility] Sulfamethoxazole-Trimethoprim 400-80 MG Oral Tablet Provider: Diagnosis: Last Documented On 4 2:44PM By Karen Ornelas ; [facility] DULoxetine HCl 60 MG Oral Capsule Delayed Releas e Particles 01/18/2024 Provider: Diagnosis: Last Documented On 4 2:44PM By Karen Ornelas ; [facility] HYDROmorphone HCl 4 MG Oral Tablet 01/08/2024 Provid er: Diagnosis: Last Documented On 4 2:44PM By Karen Ornelas ; [facility] Fluticasone-Salmeterol 100-5 0 MCG/ACT Inhalation Aerosol Powder Breath Activated 01/08/2024 Provider: Diagnosis: Last Documented On 4 2:44PM By Karen Ornelas ; [facility] Atorvastatin Calcium 40 MG Oral Tablet 01/08/2024 Pr ovider: Diagnosis: Last Documented On 4 2:44PM By Karen Ornelas ; [facility] Levothyroxine Sodium 25 MCG Oral Tablet 12/31/2023 P dionicioder: Diagnosis: Last Documented On 4 2:44PM By Karen Ornelas ; [facility] Eliquis 5 MG Oral Tablet 12/31/2023 Provider: Diagnosis: Last Documented On 4 2:44PM By Karen Ornelas ; [facility] Atorvastatin Calcium 20 MG Oral Tablet 12/31/2023 Pr ovider: Diagnosis: Last Documented On 4 2:44PM By Karen Ornelas ; [facility] amLODIPine Besylate 5 MG Oral Tablet 12/10/2023 Prov ider: Diagnosis: Last Documented On 4 2:44PM By Karen Ornelas ; [facility], [facility] Albuterol Sulfate 108 (90 Ba se) MCG/ACT Inhalation Aerosol Powder Breath Activated 06/15/2022 Provider: Diagnosis: Last Documented On 3 8:21AM By Merari Parson ; [facility], [facility] Cymbalta 20 MG Oral Capsule Delayed Release Particles 06/15/2022 Provider: Diagnosis: Last Documented On 3 8:21AM By Merari Parson ; [facility], [facility] Estradiol 0.1 MG/GM Vaginal Cream 06/15/2022 Provide r: Diagnosis: Last Documented On 3 9:04AM By Merari Parson ; [facility], [facility] Retin-A 0.1% External Cream 06/15/2022 Provider: Diagnosis: Last Documented On 3 9:03AM By Merari Parson ; [facility], [facility] Nystatin-Triamcinolone 866045-6.1 UNIT/GM-% External C ream 06/15/2022 Provider: Diagnosis: Last Documented On 3 9:02AM By Merari Parson ; [facility], [facility] Triamcinolone Acetonide 0.1% External Cream 06/15/2022 Provider: Diagnosis: Last Documented On 3 8:29AM By Merari Parson ; [facility], [facility] oxyCODONE HCl 10 MG Oral Tablet 06/15/2022 Provider: Diagnosis: Last Documented On 3 8:27AM By Merari Parson ; [facility], [facility] Losartan Potassium 50 MG Oral Tablet 06/15/2022 Prov ider: Diagnosis: Last Documented On 3 8:26AM By Merari Parson ; [facility], [facility] Fluticasone-Salmeterol 250-5 0 MCG/ACT Inhalation Aerosol Powder Breath Activated 06/15/2022 Provider: Diagnosis: Last Documented On 3 8:25AM By Merari Parson ; [facility], [facility] Diphenoxylate-Atropine 2.5-0.025 MG Oral Tablet 2022 Provider: Diagnosis: Last Documented On 3 8:22AM By Merari Parson ; [facility], [facility] Acyclovir 400 MG Oral Tablet 10/05/2020 Provider: Diagnosis: Last Documented On 1 3:19PM By Adele Trevino ; [facility], [facility] Past Medications on file oxyCODONE HCl 5 MG Oral Tablet 07/19/2022 - 07/29/2022 Provider: Jesus Zimmer MD Diagnosis: Take 1 tablet by mouth every 4-6 hrs for break through pain Last Documented On 3 11:00AM By Jesus Espinosa ; [facility], [facility] Meloxicam 15 MG Oral Tablet 07/03/2022 - 07/17/2022 Pr ovider: Jesus Espinosa MD Diagnosis: once a day Last Documented On 3 8:45AM By Barbara Correa ; [facility], [facility] Ondansetron HCl 4 MG Oral Tablet 06/30/2022 - 07/07/2022 Provider: Jesus Zimmer MD Diagnosis: 1 po q 6h prn nausea Last Documented On 3 1:35PM By Jesus Espinosa ; [facility], [facility] oxyCODONE HCl 5 MG Oral Tablet 06/30/2022 - 07/10/2022 Provider: Jesus Zimmer MD Diagnosis: Take 1 tablet by mouth every 4-6 hrs for break through pain Last Documented On 3 1:35PM By Jesus Espinosa ; [facility], [facility] Acetaminophen 500 MG Oral Tablet 06/30/2022 - 07/14/2022 Provider: Jesus Zimmer MD Diagnosis: Take 2 tablets by mouth every 8 hours Last Documented On 3 1:35PM By Jesus Espinosa ; [facility], [facility] Cefadroxil 500 MG Oral Capsule 06/30/2022 - 07/07/2022 Provider: Jesus Zimmer MD Diagnosis: Take 1 tablet by mouth every 12 hours for 7 days Last Documented On 3 1:35PM By Jesus Espinosa ; [facility], [facility] Aspirin EC 81 MG Oral Tablet Delayed Release 06/30/2022 - 08/11/2022 Provider: Jesus Espinosa MD Diagnosis: Take 1 tablet by mouth every 12 hours for 42 days post op Last Documented On 3 1:35PM By Jesus Espinosa ; [facility], [facility] Vitamin D3 50 MCG (1999 [place]) Oral Tablet 06/20/2022 - 07/20/2022 Provider: Diana ABDI Diagnosis: once a day Last Documented On 3 1:03PM By Diana Rosas ; [facility], [facility] cloNIDine HCl 0.1 MG Oral Tablet 10/05/2020 - 11/05/19 Provider: Diagnosis: Last Documented On 1 3:16PM By Adele Trevino ; [facility], [facility] Atorvastatin Calcium 20 MG O ral Tablet 10/05/2020 - 11/04/2020 Provider: MADI CHAPIN MD Diagnosis: Last Documented On 1 3:18PM By Adele Trevino ; [facility], [facility] Medications Administered Includes: Administered Medications from this encounter No Administered Medications Recorded Vital Signs Includes: Vital Signs from this encounter Vital Name 06/16/2024 01:12P Height (in) 62 Weight (lb) 160 Body Mass Index 29.3 Body Surface Area 1.7 Note: ethel Last Documented: On 06/16/2024 1:12PM ; [facility], [facility] Results Includes: Results discussed during [...] total hip replacement done in 2007 in [place]. She states she is having groin pain [...] which she continues to do well with. Social History Description Last Updated Recent change in diet 01/30/2024 Last Documented On 5 12:49PM ; [facility], [facility] Not a current smoker. 01/30/2024 Last Documented On 5 12:49PM ; [facility], [facility] Tobacco non-user 02/17/2022 Last Documented On 5 12:49PM ; [facility], [facility] Caffeine use 10/05/2020 Last Documented On 5 12:49PM ; [facility], [facility] Exercising regularly 10/05/2020 Last Documented On 5 12:49PM ; [facility], [facility] No recent change in diet 10/05/2020 Last Documented On 5 12:49PM ; [facility], [facility] Not a current smoker. 10/05/2020 Last Documented On 5 12:49PM ; [facility], [facility] Not using alcohol 10/05/2020 Last Documented On 5 12:49PM ; [facility], [facility] Not using drugs 10/05/2020 Last Documented On 5 12:49PM ; [facility], [facility] Non-smoker 10/05/2020 Last Documented On 5 12:49PM ; [facility], [facility] Not a current smoker 05/29/2018 Last Documented On 5 12:49PM ; [facility], [facility] No tobacco use 05/29/2018 Last Documented On 5 12:49PM ; [facility], [facility] Smoking status : Former smoker 9 Last Documented On 5 12:49PM ; [facility], [facility] Procedures and Surgical History Includes: Procedures from this encounter Procedures Code Diagnosis Performing Provider Service Location Service Date HIP BILATERAL [address]53 Unilateral prima ry osteoarthritis, right hip, Trochanteric bursitis, left hip Jesus Espinosa MD [facility] 06/16/2024 Last Documented On 5 1:32PM ; [facility], [facility] use of tobacco assessment performed 1000F Last Documented On 5 12:49PM ; [facility] patient screened for future fall risk: documentation of any fall with injury in past year 1100F Last Documented On 5 12:49PM ; [facility], [facility] review of medications documented 1160F Last Documented On 5 12:49PM ; [facility], [facility] an X-ray was performed 53123 Last Documented On 5 12:49PM ; [facility], [facility] an MRI was performed 07550 Last Documented On 5 12:49PM ; [facility], [facility] Surgical History Last Updated History of History of Arthroscopy 2023 Last Documented On 5 12:48PM ; [facility] History of Previous Fractures 01/30/2024 Last Documented On 5 12:48PM ; [facility] History of total hip replacement 024 Last Documented On 5 12:48PM ; [facility] History of total knee arthroplasty 01/29 Last Documented On 5 12:48PM ; [facility] Past Surgical History: 03/16/2023 Last Documented On 5 12:48PM ; [facility], [facility] Medical History Includes: Medical History addressed during this encounter Description Last Updated History of asthma 01/30/2024 Last Documented On 5 12:48PM ; [facility] History of History of Blood Transfusion 01/30/2024 Last Documented On 5 12:48PM ; [facility] History of Hypertension 01/30/2024 Last Documented On 5 12:48PM ; [facility] History of History of Blood Clots 2022 Last Documented On 5 12:48PM ; [facility] Anemia 10/05/2020 Last Documented On 5 12:48PM ; [facility] Arthritis 10/05/2020 Last Documented On 5 12:48PM ; [facility], [facility] Recent immunization for flu 10/05/2020 Last Documented On 5 12:48PM ; [facility], [facility] Recent immunization for pneumococcal pne umonia 10/05/2020 Last Documented On 5 12:48PM ; [facility], [facility] arthroscopy ~total joint replacement ~hi gh cholesterol 05/29/2018 Last Documented On 5 12:48PM ; [facility], [facility] Arthritic joint problems 05/29/2018 Last Documented On 5 12:48PM ; [facility], [facility] History of depression 05/29/2018 Last Documented On 5 12:48PM ; [facility], [facility] History of hepatitis C 05/29/2018 Last Documented On 5 12:48PM ; [facility], [facility] Family History Includes: Family History addressed during this encounter Description Last Updated Family history of cancer 10/05/2020 Last Documented On 5 12:48PM ; [facility], [facility] Family history of osteoporosis 1 Last Documented On 5 12:48PM ; [facility], [facility] Family history of thromboembolic disease 05/29/2018 Last Documented On 5 12:48PM ; [facility], [facility] No significant family history maternal- Breast cancer 05/29/2018 Last Documented On 5 12:48PM ; [facility], [facility] Review of Systems Includes: Review [...] Active Last Documented On 06/16/2024 12:48PM ; [facility], [facility] Note: joint pain- Major fluoroquinolones Allergy 09/04/2018 Ac tive Last Documented On 5 12:48PM ; [facility], [facility] Encounters Encounter Provider Location Date Check-In Time Check- Out Time Diagnosis Follow Up Jesus Espinosa MD [facility] 5 12:43PM 1:40PM Insurance Includes: Active Insurance Policies Plan Name Member ID Group # Subscriber Relationship Effect sherman Dates 1 - Medicare Part B [facility] [id number] Farrah Atkinson Self 4 - Unknown 2 - [facility] [id number] Farrah Atkinson Self 05/03/2019 - Unknown Clinical Notes Includes: Clinical Notes from this encounter * Progress note Date Encounter Last Documented by 06/16/2024 Follow Up Last documented on 06/16/2024; 1:41 PM, Jesus Espinosa MD; [facility], [facility] Active Problems & Conditions - [...] total hip replacement done in 2007 in [place]. She states she is having groin pain [...] directed 0 days, 0 refills - Nystatin-Triamcinolone 348710-9.1 UNIT/GM-% External Cream take as directed 0 [...] Care Team - Chandra Leahy MD - [employer]
== END 2024-07-03 23:59 | disposition home or self-care (01) ==
LOC: LAB.DROPOF 07-04 12:52
PROVIDERS: PCP Family Medicine; Visit Provider Family Medicine
DX: E55.9 Vitamin D deficiency, unspecified (principal); E78.2 Mixed hyperlipidemia; I10 Essential (primary) hypertension; Z13.1 Encounter for screening for diabetes mellitus
CPT/HCPCS: 80053; 80061; 82306; 85025

== ENCOUNTER 2024-07-04 02:30 | Emergency (ER) | payer MEDICARE, OTHER, SELFPAY ==
[2024-07-04 02:38] VITALS: BP 202/90; PULSE 88; RESP 18; TEMP 36.5; O2SAT 99; BMI 29.2
--- NOTE | 2024-07-04 02:40 | XR_ITS ---
PROCEDURE INFORMATION: Exam: XR Right Hand Exam date and time: 07/04/2024 2:59 AM Age: 73 years old Clinical indication: Injury or trauma; Fall TECHNIQUE: Imaging protocol: Radiologic exam of the right hand. Views: 3 or more views. COMPARISON: No relevant prior studies available. FINDINGS: Bones/joints: No acute fracture. Normal alignment. Degenerative changes at multiple joints most pronounced in 1st 2nd distal interphalangeal and scaphoid multangular joints. Osteopenia. Soft tissues: Unremarkable. IMPRESSION: No acute findings.
--- NOTE | 2024-07-04 02:40 | CT_ITS ---
PROCEDURE INFORMATION: Exam: CT Cervical Spine Without Contrast Exam date and time: 07/04/2024 3:12 AM Age: 73 years old Clinical indication: Injury or trauma; Additional info: Fall, head trauma TECHNIQUE: Imaging protocol: Computed tomography of the cervical spine without contrast. Radiation optimization: All CT scans at this facility use at least one of these dose optimization techniques: automated exposure control; mA and/or kV adjustment per patient size (includes targeted exams where dose is matched to clinical indication); or iterative reconstruction. COMPARISON: Limitations: Streak artifact - mild. FINDINGS: Vertebrae: No acute fracture. Mild anterolisthesis of C3 on C4. Mild retrolisthesis of C5 on C6. Mild anterolisthesis of C7 on T1. Facet osteoarthrosis within cervical spine. Facet osteoarthrosis within upper thoracic spine. Degenerative changes of atlantodental articulation. Fusion across C4-C5 level. Moderate degenerative disc disease at C3-C4, C6-C7 levels. Severe degenerative disease at C5-C6, T1-T2 level. Lungs: 0.3 cm nodule vs focal scarring within RIGHT upper lobe. Soft tissues: Unremarkable. IMPRESSION: 1. No fracture. 2. Pulmonary nodules. For patients at low risk (minimal or absent history of smoking and of other known risk factors), no routine follow-up is indicated. For patients at high risk (history of smoking or of other known risk factors), consider optional CT at 12 months. (larisa Singh al., Fleischner Society, 2017)
--- NOTE | 2024-07-04 02:40 | CT_ITS ---
PROCEDURE INFORMATION: Exam: CT Head Without Contrast Exam date and time: 07/04/2024 3:10 AM Age: 73 years old Clinical indication: Injury or trauma; Fall; Additional info: Fall, head trauma TECHNIQUE: Imaging protocol: Computed tomography of the head without contrast. Radiation optimization: All CT scans at this facility use at least one of these dose optimization techniques: automated exposure control; mA and/or kV adjustment per patient size (includes targeted exams where dose is matched to clinical indication); or iterative reconstruction. COMPARISON: CT HEAD/BRAIN WO CON 07/22/2023 12:24 AM FINDINGS: Brain: Minimal atrophy. No intracranial hemorrhage. No mass. No edema. Cerebral ventricles: No hydrocephalus. Paranasal sinuses: No acute sinusitis. Mastoid air cells: No significant effusion. Orbital cavities: Unremarkable as visualized. Bones: No acute fracture. Soft tissues: RIGHT frontal soft tissue swelling. Vasculature: Minimal atherosclerotic disease of intracranial arteries. IMPRESSION: No intracranial hemorrhage.
--- NOTE | 2024-07-04 02:40 | XR_ITS ---
PROCEDURE INFORMATION: Exam: XR Chest Exam date and time: 07/04/2024 2:59 AM Age: 73 years old Clinical indication: Injury or trauma; Fall TECHNIQUE: Imaging protocol: Radiologic exam of the chest. Views: 1 view. COMPARISON: CR XR CHEST PORTABLE 11/17/2023 8:22 PM FINDINGS: Lungs: Unremarkable. No consolidation. Pleural spaces: Unremarkable. No pleural effusion. No pneumothorax. Heart/Mediastinum: Unremarkable. No cardiomegaly. Bones/joints: Bilateral shoulder prosthesis. No acute findings. IMPRESSION: No acute findings.
--- NOTE | 2024-07-04 02:40 | XR_ITS ---
PROCEDURE INFORMATION: Exam: XR Pelvis Exam date and time: 07/04/2024 2:59 AM Age: 73 years old Clinical indication: Injury or trauma; Fall TECHNIQUE: Imaging protocol: Radiologic exam of the pelvis. Views: 1 or 2 view. COMPARISON: CT ABDOMEN PELVIS W CON 11/14/2023 11:25 AM FINDINGS: Bones/joints: Unremarkable bilateral hip prosthesis without periprosthetic lucency. No acute fracture. Soft tissues: Unremarkable. IMPRESSION: No acute findings.
[2024-07-04] MEDS: ACETAMINOPHEN 500MG TAB 1000 MG PO (02:51)
--- NOTE | 2024-07-04 03:05 | ED_ITS ---
Discharge Plan Disposition Patient Disposition: Home, Self-Care Prescriptions Prescriptions: No Action cholecalciferol (vitamin D3) 62.5 mcg (2,500 unit) capsule 62.5 mcg PO DAILY 90 Days Qty: 90 2RF promethazine 12.5 mg tablet 12.5 mg PO TID clonidine HCl 0.1 mg tablet 0.1 mg PO PRN amitriptyline 50 mg tablet 50 mg PO HS Qty: 30 12RF Rx Instructions: Please take 1 tablet p.o. nightly Creon 36,000-114,000- 180,000 unit capsule,delayed release(DR/EC) 1 cap PO .With meals Qty: 90 12RF Rx Instructions: administer with meals and/or snacks dicyclomine 10 mg capsule 10 mg PO TID PRN (Reason: abdominal pain) Qty: 90 5RF Xifaxan 550 mg tablet 550 mg PO TID Qty: 42 0RF aripiprazole 2 mg tablet 2 mg PO DAILY ondansetron 4 mg tablet,disintegrating 4 mg PO PRN aspirin [Adult Low Dose Aspirin] 81 mg tablet,delayed release (DR/EC) 81 mg PO DAILY amlodipine 5 mg tablet 5 mg PO HS Qty: 90 4RF fluticasone propion-salmeterol [Advair Diskus] 100-50 mcg/dose blister with device 1 inh inhalation BID Qty: 60 4RF atorvastatin 40 mg tablet 40 mg PO DAILY Qty: 30 2RF hydromorphone 4 mg tablet 4 mg PO Q4-6H PRN (Reason: pain) Qty: 60 0RF Dulera 200-5 mcg/actuation HFA aerosol inhaler 2 puff inhalation BID Qty: 13 2RF duloxetine 60 mg capsule,delayed release(DR/EC) See Rx Instructions .ROUTE .COMPLEX Qty: 180 1RF Dose Instruction: TAKE 2 CAPSULES BY MOUTH ONCE DAILY Rx Instructions: TAKE 2 CAPSULES BY MOUTH ONCE DAILY estradiol 0.01 % (0.1 mg/gram) cream 1 appful vaginal DAILY PRN (Reason: leakage) Qty: 42.5 2RF ferrous sulfate [FeroSul] 325 mg (65 mg iron) tablet See Rx Instructions .ROUTE .COMPLEX Qty: 30 2RF Dose Instruction: TAKE 1 TABLET BY MOUTH ONCE DAILY Rx Instructions: TAKE 1 TABLET BY MOUTH ONCE DAILY levothyroxine 25 mcg tablet See Rx Instructions .ROUTE .COMPLEX Qty: 90 0RF Dose Instruction: TAKE 1 TABLET BY MOUTH ONCE DAILY FOR HYPOTHYROIDISM Rx Instructions: TAKE 1 TABLET BY MOUTH ONCE DAILY FOR HYPOTHYROIDISM acyclovir 400 mg tablet See Rx Instructions .ROUTE .COMPLEX Qty: 60 2RF Dose Instruction: TAKE 1 TABLET BY MOUTH 2 (TWO) TIMES A DAY. Rx Instructions: TAKE 1 TABLET BY MOUTH 2 (TWO) TIMES A DAY. diphenoxylate-atropine 2.5-0.025 mg tablet 1 tab PO TID 90 Days Qty: 270 3RF sulfamethoxazole-trimethoprim 400-80 mg tablet See Rx Instructions .ROUTE .COMPLEX Qty: 30 0RF Dose Instruction: TAKE 1 TABLET BY MOUTH ONCE DAILY WITH WATER Rx Instructions: TAKE 1 TABLET BY MOUTH ONCE DAILY WITH WATER oxycodone 10 mg tablet 10 mg PO Q4H MDD No> 6/day PRN (Reason: pain) Qty: 180 0RF losartan 50 mg tablet See Rx Instructions .ROUTE .COMPLEX Qty: 135 0RF Dose Instruction: TAKE 1 & 1/2 TABLETS BY MOUTH ONCE DAILY Rx Instructions: TAKE 1 & 1/2 TABLETS BY MOUTH ONCE DAILY tizanidine 4 mg tablet See Rx Instructions .ROUTE .COMPLEX Qty: 90 0RF Dose Instruction: TAKE 1 TABLET BY MOUTH THREE TIMES DAILY NEEDED FOR MUSCLE SPASTICITY Rx Instructions: TAKE 1 TABLET BY MOUTH THREE TIMES DAILY NEEDED FOR MUSCLE SPASTICITY furosemide 40 mg tablet See Rx Instructions .ROUTE .COMPLEX Qty: 30 0RF Dose Instruction: TAKE 1 TABLET BY MOUTH DAILY NEEDED FOR SWELLING Rx Instructions: TAKE 1 TABLET BY MOUTH DAILY NEEDED FOR SWELLING Referrals Follow up/Referrals: Connor Gomez MD [Primary Care Provider] - See instructions Activity Restrictions/Add. Instructions Additional Instructions/Restrictions: Please follow-up with your primary care provider. Please return to the emergency department if you develop any new or worsening symptoms or become concerned for your health. Clinical Impressions Clinical Impression: Hand pain, right Acute head trauma Qualifiers: Encounter type: initial encounter Qualified Code(s): S09.90XA - Unspecified injury of head, initial encounter Fall Qualifiers: Encounter type: initial encounter Qualified Code(s): W19.XXXA - Unspecified fall, initial encounter Print Language Print Language: Yi Discharge ED Provider: Manjit Barahona Adult [facility] General Chief complaint: Fall Stated complaint: fall, head injury Time Seen by Provider: 07/04/24 02:35 Mode of Arrival: Ambulatory Source of Information: Patient Description of Symptoms (Recalled from ER Triage Doc. by RN): pt presents s/p glf that occured on hospital property while walking back into the facility she tripped over cement curb in the parking lot landing on her face and inurying her right pinky finger with an abrasion to top of her right ankle. No blood thinners. No LOC History of Present Illness HPI narrative: 74-year-old female with history of right hip medical comorbidities presents for trauma. She tripped over the curb outside and fell on her face. Reports pain in the right hand, denies loss of consciousness. Reports facial pain Related Data Home Medications ?Medication ?Instructions ?Recorded ?Confirmed aspirin 81 mg tablet,delayed 81 mg PO DAILY 04/05/23 07/03/24 release (Adult Low Dose Aspirin) promethazine 12.5 mg tablet 12.5 mg PO TID 10/11/23 07/03/24 clonidine HCl 0.1 mg tablet 0.1 mg PO PRN 03/04/24 07/03/24 aripiprazole 2 mg tablet 2 mg PO DAILY 05/09/24 07/03/24 ondansetron 4 mg disintegrating 4 mg PO PRN 05/09/24 07/03/24 tablet Previous Rx's ?Medication ?Instructions ?Recorded cholecalciferol (vitamin D3) 62.5 62.5 mcg PO DAILY 90 days #90 caps 04/10/23 mcg (2,500 unit) capsule amlodipine 5 mg tablet 5 mg PO HS hypertension #90 tabs 12/10/23 mometasone-formoterol HFA 200 2 puff inhalation BID Asthma #13 12/31/23 mcg-5 mcg/actuation aerosol grams inhaler (Dulera) fluticasone 100 mcg-salmeterol 50 1 inh inhalation BID #60 ea 01/08/24 mcg/dose blistr powdr for inhalation (Advair Diskus) atorvastatin 40 mg tablet 40 mg PO DAILY #30 tabs 01/09/24 duloxetine 60 mg capsule,delayed See Rx Instructions .Route 01/18/24 release .COMPLEX #180 caps estradiol 0.01% (0.1 mg/gram) 1 appful vaginal DAILY PRN leakage 02/14/24 vaginal cream #42.5 grams ferrous sulfate 325 mg (65 mg See Rx Instructions .Route 03/03/24 iron) tablet (FeroSul) .COMPLEX #30 tabs amitriptyline 50 mg tablet 50 mg PO HS #30 tabs 03/04/24 acyclovir 400 mg tablet See Rx Instructions .Route 04/04/24 .COMPLEX #60 tabs levothyroxine 25 mcg tablet See Rx Instructions .Route 04/04/24 .COMPLEX #90 tabs diphenoxylate-atropine 2.5 1 tab PO TID 90 days #270 tabs 05/20/24 mg-0.025 mg tablet oxycodone 10 mg tablet 10 mg PO Q4H PRN pain #180 tabs 06/02/24 sulfamethoxazole 400 See Rx Instructions .Route 06/02/24 mg-trimethoprim 80 mg tablet .COMPLEX #30 tabs losartan 50 mg tablet See Rx Instructions .Route 06/06/24 .COMPLEX #135 tabs dicyclomine 10 mg capsule 10 mg PO TID PRN abdominal pain 06/26/24 #90 caps ioxlqu-fimknqsp-qgosyks 1 cap PO .With meals #90 caps 06/26/24 36,000-114,000-180,000 unit capsule,delay rel (Creon) rifaximin 550 mg tablet (Xifaxan) 550 mg PO TID #42 tabs 06/26/24 furosemide 40 mg tablet See Rx Instructions .Route 06/30/24 .COMPLEX #30 tabs tizanidine 4 mg tablet See Rx Instructions .Route 06/30/24 .COMPLEX #90 ea hydromorphone 4 mg tablet 4 mg PO Q4-6H PRN pain #60 tabs 07/03/24 Allergies Allergy/AdvReac Type Severity Reaction Status Date / Time ciprofloxacin (From Cipro) Allergy Intermediate Muscle Pain Verified 07/03/24 11:26 levofloxacin (From Levaquin) AdvReac Verified 07/03/24 11:26 [facility] Disclaimer: The information contained in this section may have been updated after the patient was seen, as this information can be updated by other users. Medical History Aftercare following bilateral knee joint replacement surgery C. difficile diarrhea Colostomy in place Perforated sigmoid colon Elevated liver enzymes Ileus Abnormal electrocardiogram [ECG] [EKG] Abdominal pain TIP (acute kidney injury) Hypothyroidism IBS (irritable bowel syndrome) HLD (hyperlipidemia) HTN (hypertension), benign Hypokalemia Hypokalemia due to loss of potassium Surgical History H/O ileostomy History of total right hip replacement History of arthroscopy of left shoulder Family History Other Anemia Asthma Cancer Hyperlipidemia Social History Smoking Status: Never smoker second hand exposure: No alcohol intake: never current occupational status: retired Travel in the last 8 weeks: None household members: spouse housing: house current occupational exposures/hazards: No caffeine: No Have you lived/traveled outside [place] in past 30 days?: No Contact w/someone who lives/traveled outside [place] past 30 days?: No Exposure to someone with infectious disease in past 14 days?: No Do you have a fever (greater than 100.4 F or 38 C)?: No Have you tested positive for COVID-19: No Exposed to someone with COVID-19 in past 14 days?: No Do you have a sore throat?: No Do you have a cough?: No Do you have any weakness?: No Do you have any diarrhea?: No Are you experiencing any unusual bleeding?: No Do you have any muscle aches/pain?: No Do you have any abdominal pain?: No Are you experiencing loss of taste or smell?: No Other Medical History Have you received the Flu Vaccine for this season: No Have you received the Pneumonia Vaccine: Yes ROS Obtained: Yes All systems reviewed & no additional complaints except as documented Physical Exam General General appearance: alert and in no apparent distress Head Head exam: normocephalic and other (Hematoma and bruising to the face) Eye Eye exam: Present normal appearance, PERRL and EOMI ENT ENT exam: Present normal oropharynx and normal external ear exam Neck Neck exam: Present normal inspection and full ROM Chest Chest inspection: Present normal inspection and symmetric chest wall rise; Absent tenderness Respiratory Respiratory exam: Present normal lung sounds bilaterally; Absent respiratory distress Cardiovascular Cardiovascular exam: Present regular rate and normal rhythm Abdominal Exam Abdominal exam: Present soft; Absent distention, tenderness or guarding Extremities Exam Extremities exam: Present other (Bruising and tenderness to the right fifth digit); Absent edema or joint swelling Back Exam Back exam: Present normal inspection; Absent tenderness Neurological Exam Neurological exam: Present alert and oriented X3; Absent motor sensory deficit Psychiatric Psychiatric exam: Present normal affect and normal mood Skin Skin exam: Present warm, dry and normal color Lymphatic Lymphatic Findings: no adenopathy Medical Decision Making Medical Records Medical records reviewed: Yes I reviewed the patient's medical records. Screening: Per USPSTF and CDC recommendations, given the prevalence of disease in our region, it is our hospital?s policy to screen for HIV and viral Hepatitis for all patients aged 18 and over and those with ongoing risk factors. Beto Inquiry Pt receiving controlled substance: No Beto was queried for this patient: No Vital Signs: 07/04/24 02:38 07/04/24 03:46 Temperature 97.7 F 97.9 F Temperature Source Oral Temporal Artery Scan Pulse Rate 74 Pulse Rate [Radial] 88 Respiratory Rate 18 18 Blood Pressure 150/84 H Blood Pressure [Right Arm] 202/90 H Blood Pressure Mean [Right Arm] 127 Blood Pressure Position [Right Arm] Sitting 02 Sat by Pulse Oximetry 99 Oxygen Delivery Method Room Air Room Air Lab Data Lab results reviewed: Yes I reviewed the patient's lab results. Orders (Tests/Meds): ED MEDICATIONS Discontinued Medications Generic Name Dose Route Start Last Admin Trade Name Freq PRN Reason Stop Dose Admin Acetaminophen 1,000 mg 07/04/24 02:40 07/04/24 02:51 Acetaminophen 500mg Tab PO 07/04/24 02:41 1,000 mg ONCE ONE Administration ORDERS Category Date Time Status CT cervical spine wo con Stat Cat Scan 07/04/24 02:[address] head/brain wo con Stat Cat Scan 07/04/24 02:40 Completed Chest XR -- portable [XR chest portable] Stat Exams 07/04/24 02:40 Completed Hand XR right minimum 3 views [XR hand RT min 3V] Stat Exams 07/04/24 02:40 Completed Pelvis XR 1-2 views [XR pelvis 1-2V] Stat Exams 07/04/24 02:40 Completed Medical Decision Narrative: 73-year-old female hypertension hyperlipidemia presents after a fall from standing, tripped over the curb and fell on her face. History was obtained via interactive discussion with patient. On arrival, patient is [afebrile, hemodynamically stable, satting appropriately, alert, oriented x4, GCS 15], moving all extremities spontaneously. Full physical exam performed and significant for facial trauma, hand trauma as documented above Differential includes but is not limited to fracture dislocation, intracranial trauma to thoracic trauma intra-abdominal trauma spine trauma extremity trauma. Patient was given Tylenol for symptomatic management and correction of underlying abnormalities. Workup initiated including CT head, CT C-spine, radiograph of the chest pelvis and right hand. On re-evaluation, patient [remains afebrile, HD stable.] Imaging independently interpreted by me and significant for no evidence of intracranial bleeding, cervical fracture, pneumothorax rib fracture or injury to the hand or pelvis. See radiology read for full review of final results. Given patient history, exam and workup, patient's presentation most likely represents fall with facial trauma and bruising to the hand. Patient discharged in stable condition with return precautions.. Procedures Risk/Benefits of Procedure(s) Were Explained: Yes Critical Care Critical Care Time Critical Care Time: No
--- NOTE | 2024-07-04 03:23 | PC.NURSE ---
Pt ambulatory to and from restroom with slow steady gait
[2024-07-04 03:46] VITALS: BP 150/84; PULSE 74; RESP 18; TEMP 36.6; O2SAT 99
== END 2024-07-04 03:42 | disposition home or self-care (01) ==
PROVIDERS: Emergency Provider Emergency Medicine; PCP Family Medicine
DX: M79.641 Pain in right hand (principal); S09.93XA Unspecified injury of face, initial encounter; S09.90XA Unspecified injury of head, initial encounter; W18.09XA Striking against other object with subsequent fall, initial encounter; Y93.89 Activity, other specified; Y92.238 Other place in hospital as the place of occurrence of the external cause
CPT/HCPCS: 70450; 71045; 72125; 72170; 73130; 99284

== ENCOUNTER 2024-09-15 14:46 | Outpatient (CLI) | payer MEDICARE, OTHER, SELFPAY ==
--- OUTSIDE RECORDS SUMMARY | 2024-04-17 07:45 | XMS_ITS ---
Author Organization [facility] Address [address] [place], [place] Care Team Providers Care Roll Panner Name Role Phone Timothy Granda DO Primary Care Provider Tha Chaudhry Unavailable [phone] Jesus Rose Unavailable REASON FOR VISIT NEW PATIENT Encounters Encounter Location Date Provider Diagnosis [facility] [address] [place] [address] 04/17/2024 Jesus Rose Plan Of Treatment No Information Progress Notes * KRISTACIERRA MonroeMaryellenOB:[birth year] (73 yo F)Acc No.[id number]:04/17/2024 Progress Notes Patient: Farrah SEAY Provider: Leelee Rose :1950 A ge:73 Y S ex:Female Date:04/17/2024 [facility] Pcp:Timothy Granda DO Subjective: * Chief Complaints: * 1 . NEW PATIENT. * Medical History: Objective: * Vitals: Assessment: Plan: * Treatment: * * Electronic signature of Reza Rose APRN on 09/15/2024 at 02:49 PM EDT Sign off status: Pending * Provider: Leelee Rose Date: 0 04/17/2024 Generated for Brisa conway/Sahra/Angela on: 0 09/15/2024 02:49 PM EDT
--- OUTSIDE RECORDS SUMMARY | 2024-05-13 09:30 | XMS_ITS ---
Author Organization [facility] Address [address] [place] [address] Care Team Providers Care Hand Icer Name Role Phone Timothy Granda DO Primary Care Provider Tha Chaudhry [facility] [phone] REASON FOR VISIT NEW PATIENT Encounters Encounter Location Date Provider Diagnosis [facility] [address] [place] [address] 05/13/2024 Tha Krishnamurthy Plan Of Treatment No Information Progress Notes * Giselle ATKINSONOB:[birth year] (73 yo F)Acc No.[id number]:05/13/2024 Progress Notes Patient: Farrah SEAY Provider: Sarabjit Krishnamurthy MD :1950 A ge:73 Y S ex:Female Date:05/13/2024 [facility] Pcp:Timothy Granda DO Subjective: * Chief Complaints: * 1 . NEW PATIENT. * Medical History: Objective: * Vitals: Assessment: Plan: * Treatment: * * Electronic signature of Didier Krishnamurthy MD on 09/15/2024 at 02:49 PM EDT Sign off status: Pending * Provider: Sarabjit Krishnamurthy MD Date: 0 05/13/2024 Generated for Brisa conway/Sahra/eTjoriitting on: 0 09/15/2024 02:49 PM EDT
--- OUTSIDE RECORDS SUMMARY | 2024-06-17 09:30 | XMS_ITS ---
Author Organization [facility] Address [address] [place] [address] Care Team Providers Care Fuel House Attendant Name Role Phone Timothy Granda DO Primary Care Provider Tha Chaudhry [facility] [phone] REASON FOR VISIT NEW PATIENT Encounters Encounter Location Date Provider Diagnosis [facility] [address] [place] [address] 06/17/2024 Tha Krishnamurthy Plan Of Treatment No Information Progress Notes * Giselle ATKINSONOB:[birth year] (73 yo F)Acc No.[id number]:06/17/2024 Progress Notes Patient: Farrah SEAY Provider: Sarabjit Krishnamurthy MD :1950 A ge:73 Y S ex:Female Date:06/17/2024 [facility] Pcp:Timothy Granda DO Subjective: * Chief Complaints: * 1 . NEW PATIENT. * Medical History: Objective: * Vitals: Assessment: Plan: * Treatment: * * Electronic signature of Didier Krishnamurthy MD on 09/15/2024 at 02:49 PM EDT Sign off status: Pending * Provider: Sarabjit Krishnamurthy MD Date: 06/17/2024 Generated for Brisa conway/Sahra/Jujuitting on: 0 09/15/2024 02:49 PM EDT
--- NOTE | 2024-09-15 14:49 | XR_ITS ---
FINAL REPORT CLINICAL HISTORY: Bunion, pain COMPARISON: None FINDINGS: RIGHT FOOT Three views demonstrate no acute fracture or dislocation. The joint spaces appear normal. No acute soft tissue abnormality is seen. There is a mild to moderate hallux valgus deformity. There are 2 orthopedic screws at the base of the first metatarsal with healed osteotomy. There is a small cerclage wire along the medial plantar aspect of the first proximal phalange. IMPRESSION: Mild to moderate hallux valgus deformity. No acute bony abnormality. Reviewed, Interpreted and Dictated by Celestine Jones MD Transcribed by Manjula Taylor Authenticated and [facility]
--- NOTE | 2024-09-15 14:49 | XR_ITS ---
FINAL REPORT CLINICAL HISTORY: Bunion, pain COMPARISON: None FINDINGS: LEFT FOOT Three views demonstrate no acute fracture or dislocation. The joint spaces appear normal. No acute soft tissue abnormality is seen. There is a moderate hallux valgus deformity. There are 2 orthopedic screws at the base of the first metatarsal with healed osteotomy. There is a small cerclage wire along the medial plantar aspect of the first proximal phalange. IMPRESSION: Moderate hallux valgus deformity. No acute bony abnormality. Reviewed, Interpreted and Dictated by Celestine Jones MD Transcribed by Manjula Taylor Authenticated and [facility]
--- OUTSIDE RECORDS SUMMARY | 2024-09-15 14:49 | XMS_ITS ---
Author Organization [facility] Address [address] [id number] Care Team Providers Care Relief Manager Name Role Phone Timothy Granda DO Primary Care Provider [phone] Sadia Campo MELTING FURNACE SKIMMER Unavailable Unavailable Hepatitis C Program Status:Paused (Paused) Start date:08/03/2022 Enrollment date:08/03/2022 Enrollment reason:HCV Continued Care and Services Coordination
--- OUTSIDE RECORDS SUMMARY | 2024-09-15 14:49 | XMS_ITS | Clinical Summary ---
Author Organization [facility] Address [address] [place] [address] Phone Care Team Providers Care Can Crimper Name Role Phone Unavailable Primary Care Provider Unavailabl e Allergies No known active allergies Medications * This document contains information received from the source organization and may not represent a complete record from that organization. DULoxetine (CYMBALTA) 60 mg Oral Capsule, Delayed Release(E.C.) TAKE 2 CAPSULES BY MOUTH ONCE DAILY 60 Capsule 3 5 Active cloNIDine (CATAPRES) 0.1 mg Oral Tablet TAKE ONE TO TWO TABLETS BY MOUTH 2 TO 3 TIMES A DAY NEEDED FOR ANXIETY MAY CAUSE DROWSINESS 180 Tablet 5 Active ARIPiprazole (ABILIFY) 2 mg Oral Tablet TAKE 1 TABLET BY MOUTH ONCE DAILY 30 Tablet 5 Active ARIPiprazole (ABILIFY) 2 mg Oral Tablet Take 1 Tablet by mouth daily. 30 Tablet 1 5 025 Discontinued cloNIDine (CATAPRES) 0.1 mg Oral Tablet TAKE ONE TO TWO TABLETS BY MOUTH 2 TO 3 TIMES A DAY NEEDED FOR ANXIETY MAY CAUSE DROWSINESS 180 Tablet 5 025 Discontinued Active Problems No known active problems Medical History Medical History Date Comments IBS (irritable bowel syndrome) History of hip replacement History of right shoulder replacement Depression Social History Tobacco Use Types Packs/Day Years Used Date Smoking Tobacco: Never Smokeless Tobacco: Never Tobacco Cessation:Counseling Given: No Alcohol Use Standard Drinks/Week Comments Yes 3 (1 standard drink = 0.6 oz pur e alcohol) Comments Unknown Sex and Gender Information Value Date Recorded Sex Assigned at Not on file Legal Sex Female 8:51 AM EST Gender Identity Not on file Sexual Orientation Not on file Obstetrics History Last Filed Vital Signs Vital Sign Reading Time Taken Comments Blood Pressure 138/76 01/29/2019 3:30 PM EDT Pulse 88 01/29/2019 3:30 PM EDT Temperature - - Respiratory Rate - - Oxygen Saturation - - Inhaled Oxygen Concentration - - Weight - - Height - - Body Mass Index - - Plan of Treatment Health Maintenance Due Date Last Done Comments Wellness Exam Medicare 09/26/1953 Hepatitis C Screening 09/26/1969 DTaP/TDaP/Td (1 - Tdap) 09/26/1970 Breast Cancer Screening 1991 Cologuard 09/26/1996 FIT 09/26/1996 Virtual Colonography 09/26/1996 Zoster (1 of 2) 09/26/2001 Pneumococcal Vaccine 50+ (2 of 2 - PCV) 02/15/2016 02/14/2015 Bone Density Screening 09/26/2016 COVID-19 Vaccine (2023- season) 2024 02/20/2024, 02/09/2023, 01/25/2022, Additional history exists Sigmoidoscopy 02/22/2028 02/21/2023 Colon Cancer Screening 08/08/2032 Colonoscopy 08/08/2032 08/08/2022, 0510/2022, 12/07/2017 Influenza Vaccine Completed 02/20/2024, , 01/25/2022, Additional history exists Hepatitis B Vaccine Aged Out No longe r eligible based on patient's age to complete this topic Meningococcal B Vaccine Aged Out No l onger eligible based on patient's age to complete this topic Insurance MEDICARE [place] PART A AND B [employer]
--- OUTSIDE RECORDS SUMMARY | 2024-09-15 14:49 | XMS_ITS | Encounter Summary ---
Author Organization Healthcare Address [address] [place] [address] Care Team Providers Care Hose Tester Name Role Phone Timothy Granda DO Primary Care Provider [phone] Sadia Campo REFRESH TECHNICIAN Unavailable Unavailable Encounter Details Date Type Department Care Team (Late st Contact Info) Description 07/24/2023 Lab Requisition [facility] [address] [place] [address] Miky Coleman MD [address] [facility] [address] [place] [address] Encounter for general adult medical examination without abnormal findings Social History Tobacco Use Types Packs/Day Years Used Date Smoking Tobacco: Former Cigarettes 0.5 2 1 986 - 1987 Smokeless Tobacco: Never Alcohol Use Standard Drinks/Week Comments Not Currently 0 (1 standard drink = 0.6 oz pur e alcohol) Humiliation, Afraid, Rape, and Kick questionnair e Answer Date Recorded Within the last year, have y ou been afraid of your partner or ex-partner? Patient declined 07/23/2023 Within the last year, have y ou been humiliated or emotionally abused in other ways by your partner or ex-partner? Patient declined 07/23/2023 Within the last year, have y ou been kicked, hit, slapped, or otherwise physically hurt by your partner or ex-partner? Patient declined 07/23/2023 Within the last year, have y ou been raped or forced to have any kind of sexual activity by your partner or ex-partner? Patient declined 07/23/2023 PHQ-2 Answer Date Recorded Patient Health Questionnaire-2 Score 0 03/27/2023 Hunger Vital Sign Answer Date Recorded Within the past 12 months, y ou worried that your food would run out before you got the money to buy more. Patient declined Within the past 12 months, t he food you bought just didn't last and you didn't have money to get more. Patient declined PRAPARE - Transportation Answer Date Re corded In the past 12 months, has l ack of transportation kept you from medical appointments or from getting medications? Patient declined 07/23/2023 In the past 12 months, has l ack of transportation kept you from meetings, work, or from getting things needed for daily living? Patient declined 07/23/2023 Housing Stability Vital Sign Answer Lang e Recorded In the last 12 months, was t here a time when you were not able to pay the mortgage or rent on time? Patient refused 07/23/19 24 Number of Places Lived in the Last Year Not on f ile 07/23/2023 In the last 12 months, was t here a time when you did not have a steady place to sleep or slept in a retirement (including now)? Patient refused 07/23/2023 CAGE ASSESSMENT Answer Date Recorded Cage unable to access Not on file 06/25/2023 Cage max number of drinks Not on file 2023 Cage Beverages a week Not on file 06/25/2023 Have you ever felt you should CUT down on your d rinking? 0 06/25/2023 Have you been ANNOYED by people criticizing your drinking? 0 06/25/2023 Have you felt GUILTY about your drinking? 0 06/25/2023 Have you had a drink first t mini in the morning (EYE-CLAY MINE CUTTING MACHINE OPERATOR) to steady your nerves or to get rid of a hangover? 0 06/25/2023 CAGE Questionnaire Score 0 024 Utilities Answer Date Recorded In the past 12 months has th e electric, gas, oil, or water company threatened to shut off services in your home? Patient refused 07/23/2023 PHQ-2A Answer Date Recorded Patient Health Questionnaire-2 Score 0 01/09/2023 Comments No Sex and Gender Information Value Date Recorded Sex Assigned at Female 05/24/2023 9:18 AM EST Legal Sex Female 5:57 PM EDT Gender Identity Female 05/24/2023 9:18 AM EST Sexual Orientation Not on file documented as of this encounter Functional Status * Calculated C-SSRS Risk Score (Lifetime/Recent) Answer Date of Assessment Author No Risk Indicated 07/27/2023 8:00 PM EDT David Vernon RN * Question Answer Date of Assessment Author 1. Wish to be (Past 1 Month) No 07/27/2023 8:00 PM EDT David Vernon RN 2. Non-Specific Active Suicidal Thoughts (Past 1 Month) No 07/27/2023 8:00 PM EDT David Vernon RN 6. Suicidal Behavior (Lifetime) No 07/27/2023 8:00 PM EDT David Vernon RN documented as of this encounter Plan of Treatment Not on file documented as of this encounter Procedures Procedure Name Priority Date/Time Associated Diagnosis Comments MULTI DRUG RESISTANCE TEST Routine 07/23/2023 9:00 AM EDT Encounter for general adult medical examination without abnormal findings documented in this encounter Results * Multi Drug Resistance Test (07/23/2023 9:00 AM EDT) Culture No growth at day 1 07/25/2023 12:01 AM EDT [facility] Swab (Nares and Renata Rectal) 07/23/2023 9:00 AM EDT 07/24/2023 4:19 AM EDT us Miky Coleman MD LAB MICROBIOLOGY - GEN ERAL ORDERABLES Final Result [facility] [address] [place] [address] documented in this encounter Visit Diagnoses Diagnosis Encounter for general adult medical examination without abnormal findings documented in this encounter Additional Health Concerns Infection Onset Date Last Indicated Resolved Time C. difficile Rule-Out 07/26/2023 08/01/20232023 1:07 AM EDT Gastrointestinal Rule-Out 08/02/2023 08/01/2023 3:00 AM EDT Assessment Noted Time A fall risk assessment has been complete d for the patient 03/27/2023 11:38 AM EST A Body Mass Index follow-up plan has been documented for the patient 10/05/2023 9:34 AM EDT documented as of this encounter Care Teams Hose Tester Relationship Specialty Start Date End Date Timothy Granda DO [address] [place] [address] PCP - General 05/25/23 Sadia Campo, [place] [address] Shoulder Puncher Cook Chill Technician 08/03/22 documented as of this encounter
--- OUTSIDE RECORDS SUMMARY | 2024-09-15 14:49 | XMS_ITS | Patient Health Record ---
Author Organization [facility] Address [address] [place] [address] Care Team Providers Care Day Guard Name Role Phone Timothy Granda DO Primary Care Provider Tha Chaudhry Unavailable [phone] Jesus Rose Unavailable Unavailable Reason For Referral No Information Encounters Encounter Location Date Provider Diagnosis [facility] [address] [place] [address] 04/01/2024 Tha Krishnamurthy [facility] [address] [place] [address] 05/13/2024 Tha Krishnamurthy [facility] [address] [place] [address] 06/17/2024 Tha Krishnamurthy Plan Of Treatment No Information Insurance Providers Payer Name Payer Address Payer Phone Subscriber Number Group Number Insured Name Patient Relationship to Insured Coverage Start Date Coverage End Date Medicare CGS Administrators [address] [id number] Farrah Anna Self - patient is the insured
--- OUTSIDE RECORDS SUMMARY | 2024-09-15 14:49 | XMS_ITS | Encounter Summary ---
Author Organization Healthcare Address [address] [place] [address] Care Team Providers Care Fireproof Door Assembler Name Role Phone Chandra Leahy MD Primary Care Provider [phone] Timothy Granda DO Primary Care Provider [phone] Sadia Campo BODY DESIGNER Unavailable Unavailable Encounter Details Date Type Department Care Team (Late st Contact Info) Description 08/14/2022 Lab Requisition [facility] [address] [place] [address] Dilip Lloyd MD [address] [address] Encounter for general adult medical examination without abnormal findings Social History Tobacco Use Types Packs/Day Years Used Date Smoking Tobacco: Former Alcohol Use Standard Drinks/Week Comments Yes 0 (1 standard drink = 0.6 oz pur e alcohol) CAGE ASSESSMENT Answer Date Recorded Due to the following: Other (Comment) 08/03/2022 Maximum number of drinks you had on a given occasion in the last month? 0 drinks 08/03/2022 How many alcoholic Beverages do you typically drink in a week? 0 - 7 per week 08/03/2022 Have you ever felt you shoul d CUT down on your drinking? 0 08/03/2022 Have you been ANNOYED by peo ple criticizing your drinking? 0 08/03/2022 Have you felt GUILTY about your drinking? 0 08/03/2022 Have you had a drink first t mini in the morning (EYE-PSYCHIATRIC SPECIALIST) to steady your nerves or to get rid of a hangover? 0 08/03/2022 CAGE Questionnaire Score 0 023 Comments Unknown Sex and Gender Information Value Date Recorded Sex Assigned at Female 05/24/2023 9:18 AM EST Legal Sex Female 5:57 PM EDT Gender Identity Female 05/24/2023 9:18 AM EST Sexual Orientation Not on file documented as of this encounter Functional Status * Calculated C-SSRS Risk Score (Lifetime/Recent) Answer Date of Assessment Author No Risk Indicated 08/17/2022 8:00 PM EDT Cole Montejo RN * Question Answer Date of Assessment Author 1. Wish to be (Past 1 Month) No 023 8:00 PM EDT Cole Montejo RN 2. Non-Specific Active Suici charles Thoughts (Past 1 Month) No 08/17/2022 8:00 PM EDT Perry Montejo i, RN 3. Active Suicidal Ideation with any Methods (Not Plan) Without Intent to Act (Past 1 Month) No 08/17/2022 8:00 PM EDT Cole Montejo RN 4. Active Suicidal Ideation with Some Intent to Act, Without Specific Plan (Past 1 Month) No 08/17/2022 8:00 PM EDT Cole Montejo RN 5. Active Suicidal Ideation with Specific Plan and Intent (Past 1 Month) No 08/17/2022 8:00 PM EDT Cole Montejo RN 6. Suicidal Behavior (Lifetime) No 8:00 PM EDT Cole Montejo RN documented as of this encounter Plan of Treatment Not on file documented as of this encounter Procedures Procedure Name Priority Date/Time Associated Diagnosis Comments MULTI DRUG RESISTANCE TEST Routine 08/14/2022 8:00 AM EDT Encounter for general adult medical examination without abnormal findings documented in this encounter Results * Multi Drug Resistance Test (08/14/2022 8:00 AM EDT) Culture No growth at day 2 08/16/2022 7:12 AM EDT [facility] Swab (Nares and Renata Rectal) 08/14/2022 8:00 AM EDT 08/14/2022 9:18 AM EDT us Dilip Greer MD LAB MICROBIOLOGY - GENERAL ORDERABLES Final Result [facility] [address] [place] [address] documented in this encounter Visit Diagnoses Diagnosis Encounter for general adult medical examination without abnormal findings documented in this encounter Additional Health Concerns Infection Onset Date Last Indicated Resolved Time COVID-19 Rule-Out 07/22/2023 07/22/2023 07/22/2023 12:14 PM EDT C. difficile Rule-Out 07/26/2023 08/01/20232023 1:07 AM EDT Gastrointestinal Rule-Out 08/02/2023 08/01/2023 3:00 AM EDT documented as of this encounter Care Teams Fireproof Door Assembler Relationship Specialty Start Date End Date Chandra Leahy MD [address] [place] [address] PCP - General 08/02/22 05/24/23 Timothy Granda DO [address] [place] [address] PCP - General 05/25/23 Sadia Campo, [place] [address] Infantry Officer Supervisor Cartography 08/03/22 documented as of this encounter
--- OUTSIDE RECORDS SUMMARY | 2024-09-15 14:49 | XMS_ITS ---
Author Organization [facility] Care Team Providers Care Harp Action Assembler Name Role Phone Chandra Leahy Unavailable Unavailable Allergies and adverse reactions Code CodeSystem Substance Reaction Severity StartDate Concern Status 429739696 SNOMED CT Quinolones Unknown 09/04/2022 active Compazine Unknown 09/04/2022 active 2551 RXNORM Ciprofloxacin Unknown 09/04/2022 active 22973 RXNORM Azithromycin Unknown 09/04/2022 active Care Team Name Role Address Phone Organization Dates Chandra Leahy PCP [address] [place] [address], [address], [place] (Office): : [facility] 09/04/2022 - 09/06/2022 Immunizations Immunization Status Vaccine Details Vaccine Code CodeSystem Lang e Notes TB 2 Step Mantoux Skin Test completed tuberculin skin test; unspecified formulation lotNumber: [id number] expiry: 12/02/2023 Given 0.1 ml Left Forearm intradermally Step 1 of Multi-step with next step required 98 CVX created date: 09/04/2022 consent date: 09/04/2022 administere d date: 09/04/2022 Mental Status Section Date Assessment Total Score Description 09/06/2022 BIMS 14 cognitively int act CAM 0 No delirium ind icated PHQ-9 10 moderate depres gideon Problems Problem # Description Date of onset Resolved Date Code CodeSystem Concern Status 1 ACUTE AND SUBACUTE HEPATIC FAILURE WITHOUT COMA 09/04/[address] active 2 ACUTE KIDNEY FAILURE, UNSPECIFIED 09/04/[address] active 3 ACUTE RESPIRATORY FAILURE WITH HYPOXIA 09/04/[address] active 4 ANURIA AND OLIGURIA 09/04/[address] active 5 COLOSTOMY STATUS 09/04/[address] active 6 CONSTIPATION, UNSPECIFIED 09/04/[address] active 7 DEPRESSION, UNSPECIFIED 09/04/[address] active 8 DISORDER OF VEIN, UNSPECIFIED 09/04/[address] active 9 DYSPHAGIA, UNSPECIFIED 09/04/[address] active 10 ESSENTIAL (PRIMARY) HYPERTENSION 09/04/[address] active 11 GENERALIZED EDEMA 09/04/[address] active 12 HYPERLIPIDEMIA, UNSPECIFIED 09/04/[address] active 13 HYPOTHYROIDISM, UNSPECIFIED 09/04/[address] active 14 INSOMNIA, UNSPECIFIED 09/04/[address] active 15 IRRITABLE BOWEL SYNDROME WITH DIARRHEA 09/04/[address] active 16 MUSCLE WEAKNESS (GENERALIZED) 09/04/[address] active 17 OTHER ACIDOSIS 09/04/[address] act sherman 18 OTHER ASCITES 09/04/[address] act sherman 19 OTHER SPECIFIED DISORDERS INVOLVING THE IMMUNE MECHANISM, NOT ELSEWHERE CLASSIFIED 09/04/[address] active 20 PERITONEAL ABSCESS 09/04/[address] active 21 PERSONAL HISTORY OF OTHER INFECTIOUS AND PARASITIC DISEASES 09/04/[address] active 22 PORTAL VEIN THROMBOSIS 09/04/[address] active 23 PRESENCE OF OTHER VASCULAR IMPLANTS AND GRAFTS 09/04/[address] active 24 RESPIRATORY DISORDERS IN DISEASES CLASSIFIED ELSEWHERE 09/04/[address] active 25 UNSPECIFIED VIRAL HEPATITIS C WITHOUT HEPATIC COMA 09/04/[address] active 26 VOLVULUS 09/04/[address] active Reason for Referral No Reasons for Referral Entered Social History Social History Observation Description Start Date End Date Code Code System Current Smoking Status Tobacco smoking consumption unknown 382869887 SNOMED CT Sex Assigned At Female 1950 28378-3 [facility] Gender Identity Female [id number] [address] Vital Signs Code Code System Vitals Name Values and Units Timing Information 21036-7 [facility] Pain Level Value=2.0 09/06/2022 73145-2 [facility] O2 % BldC Oximetry Value=94.0 Units= % 09/04/2022 9279-1 [facility] Respiratory Rate Value=20.0 Units=/m in 09/04/2022 8462-4 [facility] Blood Pressure-Diastolic Value=63 Un its=mmHg 09/04/2022 8480-6 [facility] Blood Pressure-Systolic Balhy=614 Un its=mmHg 09/04/2022 8310-5 [facility] Body Temperature Value=98.4 Units= F 09/04/2022 8867-4 [facility] Heart rate Value=95.0 Units=/min 07/2022 81645-9 [facility] Weight Cgtnz=206.6 Units=Lbs 07/2022 8302-2 [facility] Height Value=62.0 Units=Inches 09/04/2022
--- OUTSIDE RECORDS SUMMARY | 2024-09-15 14:50 | XMS_ITS | Clinical Summary ---
Author Organization Healthcare Address [address] 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 Note: joint pain- Major Medications * This document contains information received from the source organization and may not represent a complete record from that organization. aspirin 81 MG EC tablet Take 1 tablet (81 mg) by mouth 1 (one) time each day. Active losartan (Cozaar) 50 MG tablet Take 1.5 tablets (75 mg) by mouth 1 (one) time each day. 3 Active atorvastatin (Lipitor) 20 MG tablet Take 1 tablet (20 mg) by mouth 1 (one) time each day. 3 Active DULoxetine (Cymbalta) [address] capsule Take 2 capsules (120 mg) by mouth 1 (one) time each day. 3 Active levothyroxine (Synthroid, Levoxyl) 25 MCG tablet Take 1 tablet (25 mcg) by mouth 1 (one) time each day. 3 Active potassium chloride CR (Klor-Con M20) 20 MEQ ER tablet Take 1 tablet (20 mEq) by mouth 2 (two) times a day. 3 Active cholecalciferol (Vitamin D-3) 50 MCG (2000 UT) capsule Take 1 capsule (2,000 Units) by mouth 1 (one) time each day. Active fluticasone-salmet tai (Advair Diskus) 250-50 MCG/ACT diskus inhaler Inhale 1 puff 2 (two) times a day. Rinse mouth with water after use to reduce aftertaste and incidence of candidiasis. Do not swallow. Active acetaminophen (Tylenol) 325 MG tablet Take 2 tablets (650 mg) by mouth every 6 (six) hours. 100 tablet 4 Active gabapentin (Neurontin) 300 MG capsule Take 1 capsule (300 mg) by mouth 3 (three) times a day. 60 capsule 4 Active apixaban (Eliquis) 5 MG tablet Take 1 tablet (5 mg) by mouth 2 (two) times a day. 60 tablet 4 Active oxyCODONE (Roxicodone) 10 MG immediate release tablet Take 0.5 tablets (5 mg) by mouth every 4 (four) hours if needed for severe pain. Active ferrous sulfate 325 (65 Fe) MG tablet Take 1 tablet (325 mg) by mouth 1 (one) time each day with breakfast. Active diphenoxylate-atro pine (Lomotil) 2.5-0.025 MG tablet Take 1 tablet by mouth 3 (three) times a day. Active amLODIPine (Norvasc) 5 MG tablet Take 1 tablet (5 mg) by mouth 1 (one) time each day. 30 tablet 4 Active ondansetron ODT (Zofran-ODT) 4 MG disintegrating tablet Take 1 tablet (4 mg) by mouth every 6 (six) hours if needed for nausea or vomiting. 20 tablet 4 Active cloNIDine (Catapres) 0.1 MG tablet 4 Active Active Problems Problem Noted Date Diagnosed Date Small bowel stricture 09/17/2023 Functional diarrhea 07/22/2023 Intra-abdominal fluid collection 06/04/[address] 03/27/2023 Diverticulosis 03/27/2023 Dysphagia 08/18/2022 Overview (07/02/2023): Noted on previous admission 07/2022. -Pt endorsing dysphagia like symptoms especially with PO medications Severe protein-calorie malnutrition 08/14/2022 Overview (09/17/2023): PICC and TPN Enteral tube feeds via GJ Paroxysmal atrial fibrillation 08/07/2022 Overview (08/22/2022): Resume home medications as able Hypothyroidism 08/05/2022 Overview (06/04/2023): Home levothyroxine Hx of Clostridium difficile infection 08/04/2022 Overview (08/04/2022): Complicates all aspects of care Hypertension 08/04/2022 Overview (09/17/2023): Complicates all aspects of care -home medications Resolved Problems Problem Noted Date Diagnosed Date Resolved Date Nausea & vomiting 11/14/2023 11/15/2023 Sepsis, due to unspecified o rganism, unspecified whether acute organ dysfunction present 07/22/2023 09/17/2023 Intra-abdominal abscess 08/23/2022 06/07/2022 Overview (08/29/2022): 08/22: CT A/P showed development of large abscess in abdomen/upper pelvis - IR Consulted GI bleed 08/19/2022 08/29/2022 Overview (08/20/2022): 08/18 developed coffee ground ostomy output with associated drop in hgb, transfused 2 units -GI consulted, recommended octreotide, possible scope 08/19 vs. 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 09/04/2022 Overview (08/22/2022): GI for decompressive colonoscopy 08/04 and 08/08 but werent able to pass 40cm 08/10: Exploratory Laparotomy, Total colectomy, Temporary abdominal closure 08/12: Recent reopening laparotomy, Abdominal washout, End ileostomy creation, Abdominal closure - Drainage from inferior incision has decreased, US showing intact fascia - Concern for colon stricture as cause - Final pathology: EXTENSIVE SUPPURATIVE INFLAMMATION WITH ISCHEMIC NECROSIS, FOCALLY TRANSMURAL, WITH ASSOCIATED GROSS PERFORATIONS AND ACUTE SEROSITIS Hypokalemia 08/07/2022 08/29/2022 Overview (08/07/2022): Will replete as necessary for k>4 Large bowel obstruction 08/06/202207/31 Overview (08/13/2022): Colorectal consulted 08/09 gastrograffin enema 08/10: Exlap total abdominal colectomy 08/12: End Generalized abdominal pain 08/04/2022 0 08/13/2022 Overview (08/13/2022): CT; significant dilatation of the cecum 10.6 cm and mild dilatation of the transverse colon without abnormal wall thickening along w/ 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 and ascites Therapeutic anticoagulation initiated on admission Ileus olonoscopic decompression attempted twice, atropine Liver enzyme elevation 08/04/202208/29 Overview (08/13/2022): AST/ALT/ALPHOS 2839/1981/369 Avoid hepatotoxic agents Improving Portal vein thrombosis 08/04/202209/04 Overview (08/23/2022): CT; 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 Bivalirudin drip transitioned to therapeutic lovenox 08/13 TIP (acute kidney injury) 08/04/2022 Overview (08/13/2022): Cr 1.38 on admission baseline .9 Avoid nephrotoxins Continue to trend UOP improved and creatinine dowtrending Lactic acid acidosis 08/04/2022 023 Overview (08/06/2022): LA 7.9 on admission Fluid resuscitation bolusing as needed Improving Continue to trend Venous disease 08/04/2022 09/17/2023 Overview (07/02/2023): History of b/l venous iliac stents - on Eliquis Hyperammonemia 08/04/2022 08/05/2022 Overview (08/06/2022): Will hold on lactulose given bowel insult 08/06 improved to 44 Acute respiratory failure wi th hypoxia and hypercapnia 08/04/2022 08/18/2022 Overview (08/15/2022): Respiratory decline 2/2 sedating medication Was Intubated and on mechanical ventilation Regular ABGs 08/06 extubated to NC 08/10: Reintubated 08/14: extubated Ascites 08/04/2022 08/13/2022 Anasarca 08/04/2022 06/04/2023 Overview (08/13/2022): Diuresis PRN Dilation of cecum 08/04/2022 08/22/2022 Overview (08/22/2022): 08/10 - total abdominal colectomy 08/12 - end ileostomy and abdominal closure Peritonitis, spontaneous bacterial 08/04/2022 08/12/2022 Overview (08/09/2022): Broad spectrum antibiotics; zosyn Shock due to systemic infection 08/04/2022 08/11/2022 Overview (08/13/2022): Due to bowel perforation (feculent peritonitis on entering abdomen on 08/10) S/p Total abdominal colectomy(08/10) and end ileostomy (08/12) REsolved Oliguria 08/04/2022 08/18/2022 Overview (08/15/2022): Nephrology consulted prior Renal function improving Immunizations Immunization Administration Dates Next Due Influenza Vaccine, Quadrivalent, Adjuvanted 01/31,01/25/2022,05/31/2021 Influenza, injectable, quadrivalent 02/14/2015 Influenza, injectable, quadr ivalent, preservative free 02/14/2015 Influenza, trivalent, adjuvanted 12/22/2019 [employer] COVID-19 Vaccine (Blue Cap) 18+ 06/10/19 Moderna COVID-19 Vaccine (Re d Cap) 12+ years 07/18/2021,01/27/2021 Moderna COVID-19 Vaccine Bivalent 6months+ 01/25 PPD Skin Test (TB Skin Test) 09/04/2022 [employer] Covid-19 Vaccine 12y+ , Mahesh Protein, PF, Surinder-Sucrose 02/09/2023 Pneumococcal Polysaccharide PPV23 02/14/2015 Family History Medical History Relation Name Comments No Known Problems Father Alzheimer's disease Maternal Grandmother Alzheimer's disease Mother Breast cancer Mother Alzheimer's disease Mother's Sister 1 Breast cancer Mother's Sister 2 Anxiety disorder Other 1 Alzheimer's disease Other 2 Breast cancer Other 3 Breast cancer Other 4 Anesthesia problems Neg Hx Malig Hyperthermia Neg Hx Relation Name Status Comments Father Maternal Grandmother Mother Mother's Sister 1 Mother's Sister 2 Other 1 Other 2 Other 3 Other 4 Social History Tobacco Use Types Packs/Day Years Used Date Smoking Tobacco: Former Cigarettes 0.5 2 1 986 - 1987 Smokeless Tobacco: Never Tobacco Cessation:Counseling Given: Not Answered Alcohol Use Standard Drinks/Week Comments Not Currently [...] Cage unable to access Not on file 11/15/2023 Cage max number of drinks Not on file 2023 Cage Beverages a week Not on file 11/15/2023 Have you ever felt you should CUT down on your d rinking? 0 11/15/2023 Have you been ANNOYED by people criticizing your drinking? 0 11/15/2023 Have you felt GUILTY about your drinking? 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 0 11/15/2023 CAGE Questionnaire Score 0 024 Utilities Answer [...] AM EST Sexual Orientation Not on file Last Filed Vital Signs Vital Sign Reading Time Taken Comments Blood Pressure 76/50 11/20/2023 11:15 AM EDT Pulse 65 11/20/2023 11:15 AM EDT Temperature 36.6 C (97.8 F) 11/20/2023 11:12 AM EDT Respiratory Rate 16 11/20/2023 11:12 AM EDT Oxygen Saturation 100% 11/20/2023 11:12 AM EDT Inhaled Oxygen Concentration - - Weight 65.8 kg (145 lb) 11/20/2023 11:12 AM EDT Height 165.1 cm (5' 5 ) 11/20/2023 11:12 AM EDT Body Mass Index 24.13 11/20/2023 11:12 AM EDT Plan of Treatment Health Maintenance Due Date Last Done Comments [facility]-Bone Density Scan 1950 [facility]-Infant/Child/Adol SDOH Screenings 1950 [facility]- SDOH Screenings 09/26/1969 [facility]-Adult SDOH Screenings 09/26/1969 [facility]-DTaP,Tdap,and Td Vaccines (1 - Tdap) 09/26/1970 CT Colonography 09/26/1996 FIT-DNA 09/26/1996 FIT 09/26/1996 FOBT 09/26/1996 [facility]-Breast Cancer Screening 09/26/2001 [facility]-Zoster Vaccines (1 of 2) 09/26/2001 [facility]-Pneumococcal Vaccine: 50+ Years (2 of 2 - PCV) 02/15/2016 02/14/2015 [facility]-Medicare Annual Wellness (AWV) 03/13/2023 03/13/2022 QPD-NAABD-63 Vaccine ( season) 2023 02/09/2023, 01/25/2022, 07/18/2021, Additional history exists [facility]-Depression Screening 03/27/2024 03/27/2023 [facility]-Influenza Vaccine (Season Ended) 2024 02/09/2023, 01/25/2022, 05/31/2021, Additional history exists [facility]-RSV Vaccine: 60+ Years or (1 - 1-dose 75+ series) 09/26/2026 Sigmoidoscopy 02/22/2028 02/21/2023, 02/21/2023 Colonoscopy 08/08/2032 08/08/2022, 05/0 10/2022, 12/07/2017 [facility]-Colorectal Cancer Screening 08/08/2032 [facility]-Hepatitis C Screening Completed 2023, 08/03/2022, 12/15/2021 [facility]-Obesity Intervention Completed 024, 11/14/2023, 10/16/2023, Additional history exists HPV Vaccines Aged Out No longer eligi ble based on patient's age to complete this topic [facility]-HIB Vaccines Aged Out No longer e ligible based on patient's age to complete this topic [facility]-Hepatitis A Vaccines Aged Out No longer eligible based on patient's age to complete this topic [facility]-IPV Vaccines Aged Out No longer e ligible based on patient's age to complete this topic [facility]-Rotavirus Vaccines Aged Out No lo nger eligible based on patient's age to complete this topic Procedures Procedure Name Priority Date/Time Associated Diagnosis Comments ACUTE HEPATITIS PANEL Routine 08/02/2023 2:56 PM EDT FLEXIBLE SIGMOIDOSCOPY Routine 10:25 AM EST Colonic ischemia (CMS/HCC) Ileostomy in place (CMS/HCC) COLONOSCOPY Routine 08/08/2022 5:04 PM EDT Ileus (CMS/HCC) Dilation of cecum from Last 3 Months or Most Recently Relevant to Health Maintenance Results * Hepatitis panel, acute (08/02/2023 2:56 PM EDT) Hepatitis B Surf Antigen Negative Negative 08/02/2023 7:49 PM EDT [facility] Hepatitis A Antibody IgM Negative Negative 08/02/2023 7:49 PM EDT [facility] Hepatitis B Core Antibody IgM Negative Negative 08/02/2023 7:49 PM EDT [facility] Blood Venous blood specimen / Unknown Venipuncture / Unknown 08/02/2023 2:56 PM EDT 08/02/2023 3:22 PM EDT Narrative [facility] - 08/02/2023 7:49 PM EDT Hepatitis C Antibody previously reported Positive on patient and will not be repeated on this panel. Patient is expected to test positive for Hepatitis C Antibody for the rest of their life. See previous results below: Hepatitis C Antibody Date Value Ref Range Status 08/03/2022 Positive (A) Negative Final us Jeremie Ingram MD LAB BLOOD ORDERABLES Final R esult [facility] [address] [place], [place] [id number] * Flexible Sigmoidoscopy (02/21/2023 10:25 AM EST) Anatomical Region Laterality Modality Endoscopy Narrative 02/21/2023 10:27 AM EST Table formatting from the original result was not included. Impression: The rectum appeared normal. The distal sigmoid colon appeared normal. Recommendations Follow up with me in clinic to discuss and schedule possible ileostomy reversal. Indication Colonic ischemia (CMS/HCC), Ileostomy in place (CMS/HCC) Assessment of remaining colon and rectum Medications See anesthesia record for anesthesia administered medications. Staff Staff Role Buzz Olivier MD Anesthesiologist Misti Page MD Adam Rooks, MD Proceduralist residential mortgage underwriter Adama Montes CRNA CRNA Harris, Kristi A, RN Endo Nurse Butch Little MD Fellow Tete Whitmore Endo Environmental Programs Specialist Preprocedure A history and physical has been performed, and patient medication allergies have been reviewed. The patient's tolerance of previous anesthesia has been reviewed. The risks and benefits of the procedure and the sedation options and risks were discussed with the patient. All questions were answered and informed consent obtained. Details of the Procedure The patient underwent monitored anesthesia care, which was administered by an anesthesia professional. The patient's blood pressure, heart rate, level of consciousness, oxygen and respirations were monitored throughout the procedure. A digital rectal exam was performed. The scope was advanced to the sigmoid colon, 28 cm from the anal verge. Retroflexion was performed in the rectum. The quality of bowel preparation was evaluated using the Sylvester Bowel Preparation Scale with scores of: left colon = 2. Bowel prep was adequate. The patient experienced no blood loss. The procedure was not difficult. The patient tolerated the procedure well. There were no apparent adverse events. Attestation I was present for the entire procedure Specimens No specimens were documented in this log. Findings The rectum appeared normal. The distal sigmoid colon appeared normal. The sigmoid colon was relatively hypertonic but otherwise healthy to 28 cm. We did not visualize the staple line secondary to acute angulation and fixation at this level. us Misti Page MD GI PROCEDURE ORDERABLES Final R esult * Colonoscopy (08/08/2022 5:04 PM EDT) Anatomical Region Laterality Modality Endoscopy Narrative 08/08/2022 5:08 PM EDT Table formatting from the original result was not included. Impression Pediatric colonoscope was advanced from anus to sigmoid colon up to 40cm. Two patchy areas of erythema were seen in the examined colon, likely mucosal trauma from prior colonoscopy 4 days ago. Multiple attempts were made to advance the colonoscope but unsuccessful due to angulation, fixed colon. Liquid stool was coming from colon proximal to the fixed area. The nature of the obstruction could not be ascertained. Recommendation Other - Continue current level of care - Recommend surgical evaluation for management of colonic distension as endoscopic intervention is not feasible at this time despite 2 attempts - Recommendations were conveyed to primary team at bedside. Indication Ileus (CMS/HCC), Dilation of cecum Medications Totals unavailable because the procedure time range is not set Staff Dr. Brissa MD Attending Physician Dr. Desi MD Fellow physician Preprocedure A history and physical has been performed, and patient medication allergies have been reviewed. The patient's tolerance of previous anesthesia has been reviewed. The risks and benefits of the procedure and the sedation options and risks were discussed with the patient. All questions were answered and informed consent obtained. Details of the Procedure The patient underwent moderate sedation, which was administered by a sedation nurse. The patient's blood pressure, heart rate, level of consciousness, oxygen and respirations were monitored throughout the procedure. A digital rectal exam was performed. A perianal exam was performed. The scope was introduced through the anus and advanced to the sigmoid colon. The quality of bowel preparation was evaluated using the Sylvester Bowel Preparation Scale with scores of: right colon = not assessed, transverse colon = not assessed, left colon = 1. The total BBPS score was 1. Bowel prep was not adequate. The patient experienced no blood loss. The procedure was difficult due to angulation and fixation. The patient tolerated the procedure well. There were no apparent complications. Attestation I was present for the entire procedure Events Procedure Events Event Event Time Specimens No specimens were documented in this log. Findings Pediatric colonoscope was advanced from anus to sigmoid colon up to 40cm. Two patchy areas of erythema were seen in the examined colon, likely mucosal trauma from prior colonoscopy 4 days ago. Multiple attempts were made to advance the colonoscope but unsuccessful due to angulation, fixed colon. Liquid stool was coming from colon proximal to the fixed area. The nature of the obstruction could not be ascertained. Chilo Biswas MD GI PROCEDURE ORDERABLES Lillie l Result from Last 3 Months or Most Recently Relevant to Health Maintenance Insurance [facility] [place] [address] MEDICARE Advance Directives * Full Code (Latest Code Status on File) Date Activated Date Inactivated Comments 11/14/2023 8:41 PM 11/15/2023 6:32 PM Question Answer Comments Patient has decision-making capacity? Yes * Full Code Date Activated Date Inactivated Comments 09/07/2023 7:00 PM 10/05/2023 3:04 PM Question Answer Comments Patient has decision-making capacity? Yes * Full Code Date Activated Date Inactivated Comments 07/23/2023 3:37 PM 09/07/2023 7:00 PM Question Answer Comments Patient has decision-making capacity? Yes * Full Code Date Activated Date Inactivated Comments 06/17/2023 2:37 AM 07/19/2023 6:31 PM Question Answer Comments Patient has decision-making capacity? Yes * Full Code Date Activated Date Inactivated Comments 05/24/2023 2:40 PM 06/08/2023 6:05 PM Question Answer Comments Patient has decision-making capacity? Yes Care Teams Load Dispatcher Relationship Specialty Start Date End Date Timothy Granda DO [address] [place] [id number] PCP - General 05/25/23 Saida Campo, [place] [address] Shared Services Representative Extrusion Press Adjuster 08/03/22
--- NOTE | 2024-09-15 15:30 | MM_ITS ---
PROCEDURE INFORMATION: Exam: MG Bilateral Screening 3D Mammography Exam date and time: 09/15/2024 2:56 PM Age: 73 years old Clinical indication: Screening examination TECHNIQUE: Imaging protocol: Bilateral Screening tomosynthesis and 2D mammography including computer-aided detection (CAD) when performed. COMPARISON: 1. MG MM DIG SCREENING MAMM BI W/CAD 02/23/2023 1:15 PM 2. MG MM DIG SCREENING MAMM BI W/CAD 08/23/2021 8:24 AM FINDINGS: MAMMOGRAPHY: Breast composition: There are scattered areas of fibroglandular density. Mass: None. Architectural distortion: None. Calcifications: No suspicious calcifications. Asymmetric density: None. Skin thickening: None. Axillary adenopathy: None. IMPRESSION: No mammographic evidence of malignancy. Annual screening is recommended unless otherwise clinically indicated. ASSESSMENT: BI-RADS Category 1: Negative.
== END 2024-09-15 23:59 | disposition home or self-care (01) ==
LOC: RAD 14:47
PROVIDERS: PCP Family Medicine; Visit Provider Family Medicine
DX: Z12.31 Encounter for screening mammogram for malignant neoplasm of breast (principal); M20.12 Hallux valgus (acquired), left foot; M20.11 Hallux valgus (acquired), right foot; M21.612 Bunion of left foot; M21.611 Bunion of right foot; R92.323 Mammographic fibroglandular density, bilateral breasts
CPT/HCPCS: 73630; 77063; 77067

== ENCOUNTER 2024-10-07 10:45 | Outpatient (CLI) | payer MEDICARE, OTHER, SELFPAY ==
--- OUTSIDE RECORDS SUMMARY | 2024-04-17 07:45 | XMS_ITS ---
Author Organization [facility] Address [address] [place] [address] Care Team Providers Care Candy Waffle Assembler Name Role Phone Timothy Granda DO Primary Care Provider Tha Chaudhry Unavailable [phone] Jesus Rose Unavailable REASON FOR VISIT NEW PATIENT Encounters Encounter Location Date Provider Diagnosis [facility] [address] [place] [address] 04/17/2024 Jesus Rose Plan Of Treatment No Information Progress Notes * KRISTACIERRA MonroeMaryellenOB:[birth year] (74 yo F)Acc No.[id number]:04/17/2024 Progress Notes Patient: Farrah SEAY Provider: Leelee Rose :1950 A ge:73 Y S ex:Female Date:04/17/2024 [facility] Pcp:Timothy Granda DO Subjective: * Chief Complaints: * 1 . NEW PATIENT. * Medical History: Objective: * Vitals: Assessment: Plan: * Treatment: * * Electronic signature of Reza Rose APRN on 10/08/2024 at 10:00 AM EDT Sign off status: Pending * Provider: Leelee Rose Date: 0 04/17/2024 Generated for Brisa conway/Sahra/Angela on: 0 10/08/2024 10:00 AM EDT
--- OUTSIDE RECORDS SUMMARY | 2024-05-13 09:30 | XMS_ITS ---
Author Organization [facility] Address [address] [place] [address] Care Team Providers Care Typewriter Assembler Name Role Phone Timothy Granda DO Primary Care Provider Tha Chaudhry [facility] [phone] REASON FOR VISIT NEW PATIENT Encounters Encounter Location Date Provider Diagnosis [facility] [address] [place] [address] 05/13/2024 Tha Krishnamurthy Plan Of Treatment No Information Progress Notes * Giselle ATKNISONOB:[birth year] (74 yo F)Acc No.[id number]:05/13/2024 Progress Notes Patient: Farrah SEAY Provider: Sarabjit Krishnamurthy MD :1950 A ge:73 Y S ex:Female Date:05/13/2024 [facility] Pcp:Timothy Granda DO Subjective: * Chief Complaints: * 1 . NEW PATIENT. * Medical History: Objective: * Vitals: Assessment: Plan: * Treatment: * * Electronic signature of Didier Krishnamurthy MD on 10/08/2024 at 10:00 AM EDT Sign off status: Pending * Provider: Sarabjit Krishnamurthy MD Date: 0 05/13/2024 Generated for Brisa conway/Sahra/Jujuitting on: 0 10/08/2024 10:00 AM EDT
--- OUTSIDE RECORDS SUMMARY | 2024-06-17 09:30 | XMS_ITS ---
Author Organization [facility] Address [address] [place] [address] Care Team Providers Care Sales/Marketing Name Role Phone Timothy Granda DO Primary Care Provider Tha Chaudhry [facility] [phone] REASON FOR VISIT NEW PATIENT Encounters Encounter Location Date Provider Diagnosis [facility] [address] [place] [address] 06/17/2024 Tha Krishnamurthy Plan Of Treatment No Information Progress Notes * Giselle ATKINSONOB:[birth year] (74 yo F)Acc No.[id number]:06/17/2024 Progress Notes Patient: Farrah SEAY Provider: Sarabjit Krishnamurthy MD :1950 A ge:73 Y S ex:Female Date:06/17/2024 [facility] Pcp:Timothy Granda DO Subjective: * Chief Complaints: * 1 . NEW PATIENT. * Medical History: Objective: * Vitals: Assessment: Plan: * Treatment: * * Electronic signature of Didier Krishnamurthy MD on 10/08/2024 at 10:01 AM EDT Sign off status: Pending * Provider: Sarabjit Krishnamurthy MD Date: 06/17/2024 Generated for Brisa conway/Sahra/Jujuitting on: 0 10/08/2024 10:01 AM EDT
--- OUTSIDE RECORDS SUMMARY | 2024-08-06 11:00 | XMS_ITS | Encounter Summary ---
Author Organization [facility] Address [address] [place] [address] Care Team Providers Care Transport Technician Name Role Phone Unavailable Primary Care Provider Unavailabl e Reason for Referral * Imaging (Routine) - Open Specialty Diagnoses / Procedures Referred By Gadielac t Referred To Contact Radiology Diagnoses Left shoulder pain, unspecified chronicity History of total replacement of left shoulder joint Procedures US EXTREMITY JOINT LEFT NON VASC COMPLETE Reji Phillip MD [address] [place] [address] Phone: tel: fax: Referral ID Status Reason Start Date Expiration Date Visits Re quested Visits Authorized [id number] Open 08/06/2024 08/06/2025 1 1 Reason for Visit * Reason Comments Shoulder Pain Left Shoulder - Comp lete Ultrasound * Eval and Treat (Routine) - Canceled Specialty Diagnoses / Procedures Referred By Contac t Referred To Contact Orthopedic Surgery Diagnoses Left shoulder pain, unspecified chronicity Sharon Paulino MD [address] [place] [address] [address], [place] [address] Phone: tel: fax: [facility], [address] [address] Phone: tel: fax: Referral ID Status Reason Start Date Expiration Date Visits Requested Visits Authorized [id number] Canceled Specialty Services Required 05/08/2024 05/08/2025 1 1 Encounter Details Date Type Department Care Team (Latest Contact Info) Description 08/06/2024 11:00 AM EDT Office Visit [facility] [address] [place] [address] Reji Phillip MD [address] [place] [address] Partial tear of left subscapularis tendon, sequela (Primary Dx); Tendinopathy of left rotator cuff; History of total replacement of left shoulder joint Social History Tobacco Use Types Packs/Day Years Used Date Smoking Tobacco: Never Smokeless Tobacco: Never Tobacco Cessation:Counseling Given: Not Answered Comments Unknown Sex and Gender Information Value Date Recorded Sex Assigned at Unknown 05/08/2024 1:41 PM EST Legal Sex Female 11:03 AM EDT Gender Identity Female 05/08/2024 1:41 PM EST Sexual Orientation Don't know 05/08/2024 1: 41 PM EST documented as of this encounter Last Filed Vital Signs Vital Sign Reading Time Taken Comments Blood Pressure - - Pulse - - Temperature - - Respiratory Rate - - Oxygen Saturation - - Inhaled Oxygen Concentration - - Weight 52.2 kg (115 lb) 08/06/2024 11:04 AM EDT Height 154.9 cm (5' 1 ) 08/06/2024 11:04 AM EDT Body Mass Index 21.73 08/06/2024 11:04 AM EDT documented in this encounter Progress Notes * Reji Phillip MD - 08/06/2024 11:00 AM EDT Chief Complaint: Chief Complaint Patient presents with Shoulder Pain Left Shoulder - Complete Ultrasound History of Present Illness: Patient is a 73 y.o. adult presents with the above complaint. The patient is seen in consultation at the request of Dr. Annamarie Keller for consideration of ultrasound evaluation of the left shoulder working diagnosis shoulder pain status post TSA. Past surgical history significant for TSA 2001. There are not mechanical symptoms localizing to the shoulder. The patient denies symptoms of instability about the shoulder. Pain levels 8-9. The patient admits to new onset weakness of the upper extremity. Workup has included:X-ray There is no history or autoimmune disease, inflammatory arthropathy or crystal arthropathy. Past Medical History: No past medical history on file. Past Surgical History: Procedure Laterality Date US PERITONITIS/PERITONEAL ABSCESS DRAINAGE OPEN 08/24/2022 US PERITONITIS/PERITONEAL ABSCESS DRAINAGE OPEN 08/24/2022 Present Medications: Current Outpatient Medications Medication Sig Dispense Refill acyclovir (ZOVIRAX) 400 MG tablet amLODIPine (NORVASC) 5 MG tablet Take 1 tablet by mouth daily ARIPiprazole (ABILIFY) 2 MG tablet Take 1 tablet by mouth daily atorvastatin (LIPITOR) 40 MG tablet vitamin D (CHOLECALCIFEROL) 50 MCG (1999 UT) CAPS capsule Take 1 capsule by mouth daily cloNIDine (CATAPRES) 0.1 MG tablet TAKE ONE TO TWO TABLETS BY MOUTH 2 TO 3 TIMES A DAY NEEDED FOR ANXIETY MAY CAUSE DROWSINESS dicyclomine (BENTYL) 10 MG capsule tiZANidine (ZANAFLEX) 4 MG tablet CREON 51823-320073 units CPEP delayed release capsule TAKE ONE CAPSULE BY MOUTH WITH MEALS AND/OR SNACKS DIRECTED oxyCODONE HCl (OXY-IR) 10 MG immediate release tablet Take 0.5 tablets by mouth every 4 hours as needed. Max Daily Amount: 30 mg losartan (COZAAR) 50 MG tablet levothyroxine (SYNTHROID) 25 MCG tablet fluticasone-salmeterol (ADVAIR) 100-50 MCG/ACT AEPB diskus inhaler HYDROmorphone (DILAUDID) 4 MG tablet ferrous sulfate (IRON 325) 325 (65 Fe) MG tablet Take 1 tablet by mouth daily (with breakfast) DULoxetine (CYMBALTA) 60 MG extended release capsule Take 2 capsules by mouth daily diphenoxylate-atropine (LOMOTIL) 2.5-0.025 MG per tablet Take 1 tablet by mouth 3 times daily. Max Daily Amount: 3 tablets aspirin 81 MG EC tablet Take 1 tablet by mouth daily No current facility-administered medications for this visit. Allergies: Allergies Allergen Reactions Ciprofloxacin Quinolones Other (See Comments) Fluoroquinolones- knee tendon, extreme pain and risk of rupture. Note: joint pain- Major Joint pain Fluoroquinolones- knee tendon, extreme pain and risk of rupture. Social History: Social History Socioeconomic History Marital status: Unknown Spouse name: Not on file Number of children: Not on file Years of education: Not on file Highest education level: Not on file Occupational History Not on file Tobacco Use Smoking status: Never Smokeless tobacco: Never Substance and Sexual Activity Alcohol use: Not on file Drug use: Not on file Sexual activity: Not on file Other Topics Concern Not on file Social History Narrative Not on file Social Drivers of Health Financial Resource Strain: Not on file Food Insecurity: Patient Declined (07/23/2023) Received from [facility] Hunger Vital Sign Worried About Running Out of Food in the Last Year: Patient declined Ran Out of Food in the Last Year: Patient declined Transportation Needs: Patient Declined (07/23/2023) Received from [facility] PRAPARE - Transportation Lack of Transportation (Medical): Patient declined Lack of Transportation (Non-Medical): Patient declined Physical Activity: Not on file Stress: Not on file Social Connections: Low Risk (04/12/2023) Received from [facility] [employer] Family and Community Support Help with Day to Day Activities: Not on file Feeling Lonely or Isolated: Not on file Intimate Partner Violence: Patient Declined (07/23/2023) Received from [facility] Humiliation, Afraid, Rape, and Kick questionnaire Fear of Current or Ex-Partner: Patient declined Emotionally Abused: Patient declined Physically Abused: Patient declined Sexually Abused: Patient declined Housing Stability: Low Risk (04/12/2023) Received from [facility] Housing Stability Living situation today: Not on file Living situation problems: Not on file Review of Symptoms: Pertinent items are noted in HPI 10 point review of systems negative except as mentioned in HPI Vital Signs: There were no vitals filed for this visit. General Exam: Constitutional: Patient is adequately groomed with no evidence of malnutrition Mental Status: The patient is oriented to time, place and person. The patient's mood and affect areappropriate. Vascular: Examination reveals no swelling or calf tenderness. Peripheral pulses are palpable and 2+. Lymphatics: no lymphadenopathy of the inguinal region or lower extremity Physical Exam: left shoulder Primary Exam: Inspection: No deformity atrophy appreciable effusion Strength: Mild weakness in abduction and external rotation and moderate weakness with internal rotation Special Tests: Subscapularis signs positive Skin: There are no rashes, ulcerations or lesions. Gait: Nonantalgic Neurovascular - non focal and intact Additional Comments: Additional Examinations: Office Imaging Results/Procedures PerformedToday: Office Procedures: Orders Placed This Encounter Procedures US EXTREMITY JOINT LEFT NON VASC COMPLETE Standing Status: Future Number of Occurrences: 1 Expected Date: 08/06/2024 Expiration Date: 08/06/2025 Reason for exam:: Shoulder pain Complete Ultrasound Shoulder Logic E ultrasound 10-12 MHz Findings: 1. Partial-thickness incomplete (approximately 50%) superior segment tear of the subscapularis and underlying moderate tendinopathy 2. Low-grade partial articular sided tear supraspinatus tendon anterior segment overlying the bone-implant interface 3. Stigmata of TSA and biceps tenotomy/tenodesis 4. Glenohumeral joint medialization secondary to glenoid erosion The patient was position seated on examination table. The anterior soft tissues of the left shoulder was evaluated utilizing the linear transducer. Image optimization was obtained. X-rays were reviewed prior to sonographic evaluation and there is extensive bone loss of the glenoid and erosion of the undersurface of the coracoid associated with secondary medialization and proximal migration of the humeral head. Sonographic stigmata of TSA was notable. Proximal biceps tendon was not identifiable consistent with tenotomy/tenodesis. The proximal biceps tendon was evaluated extensively in short axis and long axis and was noted to have a normal sonographic echotexture without evidence of high- grade tendinopathy or discrete tear. With dynamic imaging, there was no evidence of instability of the proximal biceps tendon. The subscapularis tendon was then evaluated extensively in short axis and long axis. The tendon wasincreased in caliber and echotexture homogenously decreased consistent with moderate tendinopathy change. Moreover, there was a low-grade partial articular sided tear of the anterior segment overlying the bone implant interface. This is estimated to be less than 50% thickness. No evidence of retracted tear The patient was then positioned in CRASS position and the supraspinatus and infraspinatus tendons were evaluated extensively in short axis and long axis. The supraspinatus was noted to be homogenously decreased in echotexture and mildly increased in caliber consistent with mild tendinopathy and strain without without evidence of high-grade tendinopathy or discrete tear. There was evidence of a the infraspinatus had a relatively normal sonographic appearance without evidence of high-grade tendinopathy or discrete tear. Power Doppler imaging negative The subacromial bursa was physiologic. Dynamic impingement test revealed no evidence of soft tissue subacromial impingement. Using virtual convex imaging, the posterior glenohumeral joint was visualized. There was no evidence of small intra-articular effusion of the the posterior joint recess. The acromial clavicular joint revealed low-grade degenerative change. There was no evidence of soft tissue mass or cystic lesions. Images stored Other Outside Imaging and Testing Personally Reviewed: No results found. Assessment Impression: . Encounter Diagnoses Name Primary? Tendinopathy of left rotator cuff Partial tear of left subscapularis tendon, sequela Yes History of total replacement of left shoulder joint Plan: Postinjection protocol and follow up with Dr. Annamarie Paulino as scheduled. The nature of the finding, probable diagnosis and likely treatment was thoroughly discussed with the patient. The options, risks, complications, alternative treatment as well as some of the differential diagnosis was discussed. The patient was thoroughly informed and all questions were answered. the patient indicated understanding and satisfaction with the discussion. Orders: Orders Placed This Encounter Procedures US EXTREMITY JOINT LEFT NON VASC COMPLETE Standing Status: Future Number of Occurrences: 1 Expected Date: 08/06/2024 Expiration Date: 08/06/2025 Reason for exam:: Shoulder pain Disclaimer: This note was dictated with voice recognition software. Though review and correction are routine, we apologize for any errors. 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
--- OUTSIDE RECORDS SUMMARY | 2024-08-06 11:10 | XMS_ITS | Encounter Summary ---
Author Organization [facility] Address [address] [place] [address] Care Team Providers Care Tank Farm Operator Name Role Phone Unavailable Primary Care Provider Unavailabl e Reason for Visit * Imaging (Routine) - Open Specialty Diagnoses / Procedures Referred By Contac t Referred To Contact Radiology Diagnoses Left shoulder pain, unspecified chronicity History of total replacement of left shoulder joint Procedures US EXTREMITY JOINT LEFT NON VASC COMPLETE Reji Phillip MD [address] [place] [address] Phone: tel: fax: Referral ID Status Reason Start Date Expiration Date Visits Re quested Visits Authorized [id number] Open 08/06/2024 08/06/2025 1 1 Encounter Details Date Type Department Care Team (Latest Contact Info) Description 08/06/2024 11:10 AM EDT Ancillary Procedure [facility] [address] [place] [id number] Left shoulder pain, unspecified chronicity; History of total replacement of left shoulder joint Social History Tobacco Use Types Packs/Day Years Used Date Smoking Tobacco: Never Smokeless Tobacco: Never Comments Unknown Sex and Gender Information Value Date Recorded Sex Assigned at Unknown 05/08/2024 1:41 PM EST Legal Sex Female 11:03 AM EDT Gender Identity Female 05/08/2024 1:41 PM EST Sexual Orientation Don't know 05/08/2024 1: 41 PM EST documented as of this encounter Plan of Treatment Not on file documented as of this encounter Procedures Procedure Name Priority Date/Time Associated Diagnosis Comments US EXTREMITY JOINT LEFT NON VASC COMPLETE Routine 08/06/2024 12:39 PM EDT Left shoulder pain, unspecified chronicity History of total replacement of left shoulder joint documented in this encounter Results * US EXTREMITY JOINT LEFT NON VASC COMPLETE (08/06/2024 12:39 PM EDT) Narrative Lauren, User - 08/06/2024 12:39 PM EDT Radiology result is complete; follow up with provider / physician office for radiology results us Edward Kristian Phillip MD IMG US ORDERABLES F inal Result documented in this encounter Visit Diagnoses Diagnosis Left shoulder pain, unspecified chronicity History of total replacement of left shoulder joint documented in this encounter
--- OUTSIDE RECORDS SUMMARY | 2024-08-28 11:15 | XMS_ITS | Encounter Summary ---
Author Organization [facility] Address [address] [place] [address] Care Team Providers Care Machine Operator Farmworker Name Role Phone Unavailable Primary Care Provider Unavailabl e Reason for Referral * Imaging (Routine) - Not Required - RTA Specialty Diagnoses / Procedures Referred By Contac t Referred To Contact Radiology Diagnoses Left shoulder pain, unspecified chronicity History of total replacement of left shoulder joint Procedures MRI SHOULDER LEFT WO CONTRAST Sharon Paulino MD [address] [facility] [address] [place] [address] Phone: tel: fax: Referral ID Status Reason Start Date Expiration Date V isits Requested Visits Authorized [id number] Not Required - RTA 08/28/2024 08/28/2025 1 1 * Imaging (Routine) - Not Required - RTA Specialty Diagnoses / Procedures Referred By Contac t Referred To Contact Radiology Diagnoses Left shoulder pain, unspecified chronicity History of total replacement of left shoulder joint Procedures CT SHOULDER LEFT WO CONTRAST Sharon Paulino MD [address] [facility] [address], [place] [address] Phone: tel: fax: Referral ID Status Reason Start Date Expiration Date V isits Requested Visits Authorized [id number] Not Required - RTA 08/28/2024 08/28/2025 1 1 Reason for Visit * Reason Comments Shoulder Pain LEFT SHOULDER Encounter Details Date Type Department Care Team (Late st Contact Info) Description 08/28/2024 11:15 AM EDT Office Visit [facility], [address] [place] [address] Sharon Paulino MD [address] [place] [address] [address], [place] [id number] Left shoulder pain, unspecified chronicity (Primary Dx); [...] by an outside orthopedic in 2001 from [place]. She has done well over the years until just recently. She was able to see Dr. Phillip and received an ultrasound evaluation of her rotator cuff. She continues to have similar symptoms. Patient denies any new injury since then. She is traveling here from [facility]. Medical History: No notes on file [...] External Rotation 4-/5, Internal Rotation 4-/5, Champagne [place] 4-/5, Supraspinatus 4-/5 Special Tests: negative Leonor's, [...] External Rotation 5/5, Internal Rotation 5/5, Champagne [place] 5/5, Supraspinatus 5/5 Special Tests: No Bolivar [...] custom glenoid at revision. The patient is aware of both of these options. Farrah Atkinson will follow up after the CT and MRI are completed and/or as needed. She was inagreement with this plan and all questions were answered to the patient's satisfaction. She was encouraged to call with any questions. 2:00 PM 08/28/2024 Steffanie Larson PA-C Orthopaedic Sports Medicine Physician Brazing Machine Operator Automatic During this examination, I, Steffanie Larson PA-C, functioned as a scribe for Dr. Sharon Paulino. This dictation was performed with a verbal recognition program ([email or web address]) and it was checked for errors. It [...]
--- OUTSIDE RECORDS SUMMARY | 2024-09-11 15:00 | XMS_ITS | Encounter Summary ---
Author Organization [facility] Address [address] [place] [address] Care Team Providers Care Healthcare Account Manager Name Role Phone Unavailable Primary Care Provider Unavailabl e Reason for Visit * Reason Comments Shoulder Pain Encounter Details Date Type Department Care Team (Late st Contact Info) Description 09/11/2024 3:00 PM EDT Office Visit [facility], [place] [address] Sharon Paulino MD [address] [place] [address] [address] [address] 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); Chronic left shoulder pain Social History Tobacco Use Types Packs/Day Years [...] PM EST documented as of this encounter Progress Notes * Sharon Paulino MD - 09/11/2024 2:01 PM EDT Images from the original note were not included. Chief Complaint Shoulder Pain History of Present Illness: Farrah Atkinson is a pleasant, 73 y.o. adult here today for follow-up of the left shoulder. Coleen she has a history of a left TSA replacement for primary osteoarthritis done by an outside orthopedic in 2001 from [place]. She has done well over the years until just recently. She was able to see Dr. Phillip and received an ultrasound evaluation of her rotator cuff. She continues to have similar symptoms. The patient denies any new injury since then. She is traveling here from [facility]. Patient returns today with CT scan and MRI images for review. She continues to have pain to her left shoulder however no interval injuries. Medical History: No notes on file Review of Systems A 14 point review of systems was completed by the patient on 09/11/2024 and is available in the media section of the scanned medical record and was reviewed on 09/11/2024. The review is negative with the exception [...] External Rotation 4-/5, Internal Rotation 4-/5, Champagne [place] 4-/5, Supraspinatus 4-/5 Special Tests: negative Leonor's, [...] External Rotation 5/5, Internal Rotation 5/5, Champagne [place] 5/5, Supraspinatus 5/5 Special Tests: No Bolivar Deformity Neurovascular: Palpable radial pulse, normal sensation in the median, ulnar, radial nerve distributions Radiology: CT of the left shoulder taken on 09/11/2024 was reviewed with the following findings: CONCLUSION: 1. Osteolysis, sclerosis, osseous fragmentation and bone cement in the expected distribution of theglenoid component. The appearance is consistent with either glenoid component loosening or absence of the glenoid component (previously removed). The osteolysis extends into the base of the coracoid process. 2. Persistence of the os acromiale. 3. Thin cortex and bone loss medial and lateral to the stem of the humeral component. 4. Multiple lozano images saved. MRI of the left shoulder taken on 09/11/2024 was reviewed with the following findings: CONCLUSION: 1. Mild fatty streaking of the rotator group muscles. 2. No complex fluid collection or pseudomass about the shoulder arthroplasty. 3. No overt periosseous soft tissue swelling about the humeral shaft, but this region is partially obscured. 4. Extensive obscuration of anatomic detail due to artifact. 5. Please see the CT scan report. Assessment : Farrah Atkinson is a pleasant 73 y.o. adult with pain related to a painful left total shoulder arthroplasty with loose glenoid and large glenoid defect. She has treatment options including removal of loose glenoid implant and bone grafting to conversion to reverse shoulder arthroplasty. This depends on the healthy and reparability of her subscapularis. Imaging suggests it remains intact >20 years after surgery. Impression: Encounter Diagnoses Name Primary? History of total replacement of left shoulder joint Yes Chronic left shoulder pain Office Procedures: No orders of the defined types were placed in this encounter. Surgical Procedure: Discussed removal of loose glenoid and humeral head prosthesis exchange with bone grafting vs revision to reverse shoulder arthroplasty with custom glenoid Treatment Plan: We did have a in-depth discussion with Farrah Atkinson regarding her painful left shoulder. Patient does have evidence of glenoid loosening with the development of a large amount of glenoid boneloss at the area of her previous glenoid baseplate. We did have a long discussion about different treatment options for the patient with given her continued symptoms. She was told that it would be hard to manage her symptoms without surgical intervention. We discussed different surgical treatments for her left shoulder. She should do well with removal of the loose glenoid and humeral head prosthesis exchange with glenoid bone grafting. Other options include revision reverse total shoulder with a allograft bone grafting to her glenoid given her largeamount of glenoid bone loss. We did discuss the benefits of this including potential pain relief aswell as the chance for feeling of the glenoid bone defect and union At this point, the patient would like to move forward with surgical interventions. Will plan for sometime later in the year likely in December. By the patient comes in for a preoperative appointment prior to that. Our plan is as follows: 1. Revision TSA to alex with allograft bone grafting to the glenoid versus Revision TSA to R TSA with allograft bone grafting to the glenoid Farrah Atkinson will follow up for preop appointment and/or as needed. She was in agreement with this plan and all questions were answered to the patient's satisfaction. She was encouraged to call with any questions. Greater than 40 minutes were expended on all aspects of today's visit including documentation, but excluding any separately billable procedures. 2:21 PM 09/11/2024 Ed Gillis DO Sports Medicine Fellow [facility] This dictation was performed with a verbal recognition program ([employer]) and it was checked for errors. It is possible that there are still dictated errors within this office note. If so, please bringany errors to my attention for an addendum. All efforts were made to ensure that this office note is accurate. I was physically present and personally supervised the Orthopaedic Sports Medicine Fellow in the evaluation and development of a treatment plan for this patient. I personally interviewed the patient and performed a physical examination. In addition, I discussed the patient's condition and treatment options with them. I have also reviewed and agree with the past medical, family and social history unless otherwise noted. All of the patient's questions were answered. Sharon Paulino MD, PhD 09/11/2024 documented in this encounter Plan of Treatment Not on file documented as of this encounter Visit Diagnoses Diagnosis History of total replacement of left shoulder joint- Primary Chronic left shoulder pain Pain in joint, shoulder region documented in this encounter
--- OUTSIDE RECORDS SUMMARY | 2024-10-08 10:00 | XMS_ITS | Encounter Summary ---
Author Organization [employer] ([place], [place], [place], [place]) Address [address] [place] [address] Care Team Providers Care Paper Cap Machine Operator Name Role Phone [facility], Provider Not In The System Primary Care Provider Unavailable Encounter Details Date Type Department Care Team (Late st Contact Info) Description 04/28/2019 Transcribed Document [facility] [place] Family Medicine [facility] [place] [address] ProviderJean-Claude MD [address], [place] [id number] Social History Tobacco Use Types Packs/Day Years Used Date Smoking Tobacco: Never Assessed Comments Unknown Sex and Gender Information Value Date Recorded Sex Assigned at Not on file Legal Sex Female 5:42 PM CDT Gender Identity Not on file Sexual Orientation Not on file documented as of this encounter Miscellaneous Notes * Cerner Conversion Note - Historical ProviderMD - 04/28/2019 7:06 AM PLASTICS PATTERNMAKER Pre Procedure Adult Entered On: 04/28/2019 7:12 EST Performed On: 04/28/2019 7:06 EST by ISAMAR MORRISON RN Height and Weight, Clinical Dosing Height Source : Stated Height Entry Format : [place]per Height, Feet : 5 ft(Converted to: 152 cm, 60 Inch) Height, Inches : 2 Inch(Converted to: 0 ft 2 Inch, 5.08 cm) Clinical Height : 157.48 cm Weight Source : Standing scale Weight Entry Format : Kemper Clinical Dosing Weight : 85 kg Weight, Pounds : 187 lb Body Surface Area (BSA) : 1.86 m2 Body Mass Index : 34.3 kg/m2 (HI) [place] Body Weight : 50 kg ISAMAR MORRISON RN - 04/28/2019 7:06 EST Health Histories Smoking Status : Never (less than 100 in lifetime; none in last 30 days) Smokeless Tobacco Status : Never ISAMAR MORRISON RN - 04/28/2019 7:06 EST Social History (As Of: 04/28/2019 07:12:33 EST) Infectious Disease History Physical contact outside [place] in the last 30 days : No Infectious Disease History : Chicken pox/Shingles, Hepatitis C, Mononucleosis, Mumps Tuberculosis Symptoms : None ISAMAR MORRISON RN - 04/28/2019 7:06 EST Anesthesia/Transfusion History Family History of Anesthesia Reaction : No prior transfusion(s) Transfusion History : Prior anesthesia without reaction Family History of Anesthesia Reaction : None ISAMAR MORRISON RN - 04/28/2019 7:06 EST Functional Assessment Living Situation : Home Patient Lives With : Spouse Persons Assisting Patient at Home : Spouse Current Daily Living Assistance : None Sensory Deficits : None Mobility Assistance Prior to Admission : Independent THOMPSON Hx Falls Immediate/Within 3 Months : No Current Home Treatments : None Home Equipment : Cane ISAMAR MORRISON RN - 04/28/2019 7:06 EST [place] Suicide Severity Rating Scale (C-SSRS) CSSRS Past Month Wish to be : No CSSRS Past Month Suicidal Thoughts : No CSSRS Lifetime Suicide Behavior : No Suicide Severity Rating Score : 0 Suicide Severity Rating : No Additional Care Required at this time Thoughts of Harming/Killing Others : No ISAMAR MORRISON RN - 04/28/2019 7:06 EST Psychosocial History Do You Have a History of the Following? : Depression Currently in Unsafe Situation : No ISAMAR MORRISON RN - 04/28/2019 7:06 EST Advance Directive Patient has Advance Directive *Q : No, patient refuses Advance Directive information ISAMAR MORRISON RN - 04/28/2019 7:06 EST Spiritual/Cultural Needs Any Spiritual/Cultural Needs or Requests : No ISAMAR MORRISON RN - 04/28/2019 7:06 EST Teaching/Learning Assessment Barriers To Learning : None evident Individuals Taught : Patient Readiness to Learn : Cooperative Baseline Knowledge of Topic : Good Readiness to Learn : Explanation Learning Style Preferences Patient : Verbal explanation ISAMAR MORRISON RN - 04/28/2019 7:06 EST General Info Arrived From : Home Mode of Arrival on Unit : Ambulatory Patient Arrival Date/Time : 04/28/2019 5:40 EST Legal Guardian : Spouse Want Family/Rep/Phys Notified of Admit : No Emergency Contact #1 : Rosalio Herman Emergency Contact #1 Emergency Contact #1 Relationship : Emergency Contact #2 : . Emergency Contact #2 Phone Number : . Emergency Contact #2 Relationship : . Information Obtained From : Patient Primary Language : Romanian Preferred Communication Mode : Verbal Communication Barrier : None Objects to Sharing Info w Family : No ISAMAR MORRISON RN - 04/28/2019 7:06 EST Vital Measurements Temperature Source : Temporal artery scanning Temperature Mode : Fahrenheit Temperature, Fahrenheit : 97.8 Deg F Clinical Temperature, C : 36.6 Deg C Pulse Method : Pulse Oximetry Peripheral Pulse Rate : 102 bpm (HI) Respiratory Rate : 16 Breaths/Min Blood Pressure Location : Arm, left upper Blood Pressure Source : Non-Invasive BP Device Systolic Blood Pressure : 179 mmHg (HI) Diastolic Blood Pressure : 83 mmHg Oxygen Saturation : 98 % Oxygen Therapy Mode : Room air ISAMAR MORRISON RN - 04/28/2019 7:06 EST Sleep Apnea Risk Assmt Hx of Obstructive Sleep Apnea Diagnosis : No Snore Loudly : No Tired, Fatigued, or Sleepy During Day : No Observed Stopping Breathing During Sleep : No Have/Are Being Treated for Hypertension : No BMI Greater Than 35 kg/m2 : No Age over 50 Years Old : Yes Neck Circumference Greater Than 40 cm : No Gender Male : No STOP-BANG Sleep Apnea Risk Level Score : 1 ISAMAR MORRISON RN - 04/28/2019 7:06 EST Don Scale Don Sensory Perception : No impairment Don Moisture : Rarely moist Don Activity : Walks occasionally Don Mobility : Slightly limited Don Nutrition : Excellent Don Friction and Shear : No apparent problem Don Score : 21 ISAMAR MORRISON RN - 04/28/2019 7:06 EST Oxygen Therapy Oxygen Therapy Mode : Room air ISAMAR MORRISON RN - 04/28/2019 7:06 EST Pain Assessment Pain Assessment : Initial assessment Pain Scale Used : 0-10 Scale ISAMAR MORRISON RN - 04/28/2019 7:06 EST Fall Risk Scales ABCs Fall Injury Risk Identification : None THOMPSON Hx Falls Immediate/Within 3 Months : No Thompson Secondary Diagnosis : No THOMPSON Use of Ambulatory Aid : None THOMPSON IV Therapy or IV Access : Yes Thompson Gait/Transferring : Normal, bedrest, immobile Thompson Mental Status : Oriented to own ability Thompson Fall Risk Score : 20 THOMPSON Fall Scale Risk Level : 0-24 Low Risk [place] Fall Interventions : Bed in low position, Call device within reach, Hourly comfort/safety rounds, Non-slip footwear, Personal items within reach, Upper side-rails up, Wheels locked ISAMAR MORRISON RN - 04/28/2019 7:06 EST Fall Risk Education Grid Nonskid Footwear Use : Verbalizes understanding ISAMAR MORRISON RN - 04/28/2019 7:06 EST Barriers to Learning : None evident Individuals Taught : Patient Readiness to Learn : Cooperative Baseline Knowledge of Topic : Comprehensive Teaching Method : Explanation Learning Style Preferences Patient : Verbal explanation Teaching Evaluation : Verbalizes understanding ISAMAR MORRISON RN - 04/28/2019 7:06 EST Education Topics, Day of Surgery DayofSurgery Education Grid Anesthesia/Sedation : Verbalizes understanding IV's : Verbalizes understanding Medication Instructions : Verbalizes understanding Pain Management : Verbalizes understanding ISAMAR MORRISON RN - 04/28/2019 7:06 EST Valuables and Belongings Valuables and Belongings : Clothing Clothing : Common streetwear Clothing Disposition : With family ISAMAR MORRISON RN - 04/28/2019 7:06 EST Pain Scale Intensity : 3 ISAMAR MORRISON RN - 04/28/2019 7:06 EST Image 4 - Images currently included in the form version of this document have not been included in the text rendition version of the form. Electronically signed by Leslee Olvera Conversion Electro Mechanical Solar Technician Cerner at 07/23/2022 4:25 PM CDT documented in this encounter Plan of Treatment Not on file documented as of this encounter Visit Diagnoses Not on filedocumented in this encounter Care Teams Paper Cap Machine Operator Relationship Specialty Start Date End Date Leslee, Provider Not In The System, [place] [address] PCP - General 04/16/23 documented as of this encounter
--- OUTSIDE RECORDS SUMMARY | 2024-10-08 10:00 | XMS_ITS | Encounter Summary ---
Author Organization [employer] ([place], [place], [place], [place]) Address [address] [place] [address] Care Team Providers Care Chief Controller Station Name Role Phone Sj, Provider Not In The System Primary Care Provider Unavailable Encounter Details Date Type Department Care Team (Late st Contact Info) Description 04/28/2019 Transcribed Document [facility] [place] Family Medicine [facility] [place] [address] ProviderJean-Claude MD [address], [place] [id number] Social History Tobacco Use Types Packs/Day Years Used Date Smoking Tobacco: Never Assessed Comments Unknown Sex and Gender Information Value Date Recorded Sex Assigned at Not on file Legal Sex Female 5:42 PM CDT Gender Identity Not on file Sexual Orientation Not on file documented as of this encounter Miscellaneous Notes * Cerner Conversion Note - Jean-Claude ProviderMD - 04/28/2019 9:04 AM OPERATOR RECEPTIONIST DATE OF PROCEDURE: 04/28/2019 SURGEON: Timothy Foster MD PREOPERATIVE DIAGNOSIS: 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 PROCEDURES: Arthroscopy of the right knee with meniscal debridement, chondroplasty, medial and lateral joint lines. DESCRIPTION OF PROCEDURE: Patient was taken to the operating room. After satisfactory general anesthesia, she was transferred to the operating table in the supine position. Her right knee was sterilely scrubbed, prepped and draped in the usual manner. A time-out was performed and the patient's name, the side, the site, the planned surgical procedure were all verified. The leg was exsanguinated and the tourniquet about the upper thigh was inflated to 300 mmHg. The arthroscope was inserted through the anterolateral inferior portal and advanced into the pouch. The retropatella had grade 2 chondromalacia. The trochlea had grade 2-3 chondromalacia with several areas of rather loose, friable articular cartilage. A full-radius resector was inserted through the anteromedial inferior portal and the trochlea debrided, removing the unstable areas of cartilage and performing a chondroplasty. The medial joint line was examined, patient had degenerative meniscus. Additionally, there was grade 2-3 chondromalacia throughout the femoral surface with one area approximately a centimeter in diameter in the weightbearing surface of the femur, which was more severely involved. The full-radius resector and the ablator were used to perform a chondroplasty of the medial joint. Medial meniscus was trimmed, removing the unstable areas, taking the meniscus back to a smooth and stable rim. The ACL was intact. The lateral joint line had degenerative meniscus with several areas of unstable flaps of the meniscus. A full-radius resector was also utilized to debride the lateral meniscus. Additionally in the lateral joint surface, there was grade 2 chondromalacia throughout with an area of unstable articular cartilage and more severe involvement in the weightbearing midportion of the femoral surface. The ablator and the full radius resector were used to perform a chondroplasty of the lateral joint line as well. Multiple photographs were taken to document the findings. All instruments were withdrawn from the knee and the excess fluid was evacuated. Each of the wounds was closed with a wire and sherie. Sterile dressing was applied and the patient was transferred to the recovery room in satisfactory condition. /[id number] MD MICHAEL Trujillo/AQ / MICHAEL / MODL /[id number] documented in this encounter Plan of Treatment Not on file documented as of this encounter Visit Diagnoses Not on filedocumented in this encounter Care Teams Chief Controller Station Relationship Specialty Start Date End Date Leslee, Provider Not In The System, [place] [address] PCP - General 04/16/23 documented as of this encounter
--- OUTSIDE RECORDS SUMMARY | 2024-10-08 10:00 | XMS_ITS | Encounter Summary ---
Author Organization [employer] ([place], [place], [place], [place]) Address [address] [place] [address] Care Team Providers Care Supervisor Special Effects Name Role Phone [facility], Provider Not In The System Primary Care Provider Unavailable Encounter Details Date Type Department Care Team (Late st Contact Info) Description 04/28/2019 Transcribed Document [facility] [place] [facility] [place] [address] ProviderJean-Claude MD [facility] [place], [place] [id number] Social History Tobacco Use Types Packs/Day Years Used Date Smoking Tobacco: Never Assessed Comments Unknown Sex and Gender Information Value Date Recorded Sex Assigned at Not on file Legal Sex Female 5:42 PM CDT Gender Identity Not on file Sexual Orientation Not on file documented as of this encounter Miscellaneous Notes * Cerner Conversion Note - Historical ProviderMD - 04/28/2019 8:29 AM HUMAN RESOURCE MANAGER Pain Assessment Entered On: 04/28/2019 9:06 EST Performed On: 04/28/2019 9:18 EST by Eduarda Patel Rn Patient Care Bedside Intervention Information: [email or web address] Performed by Eduarda Patel Rn Patient Care Bedside on 04/28/2019 08:48:00 EST fentaNYL,50mcg IV Push,Peripheral Line 1,Pain (Moderate 4-6) Pain Assessment Pain Assessment : Follow-up assessment Pain Improved by Intervention : No Eduarda Patel Rn Patient Care Bedside - 04/28/2019 9:06 EST Electronically signed by Leslee Olvera Conversion Senior User Experience Architect Cerner at 07/23/2022 4:33 PM CDT documented in this encounter Plan of Treatment Not on file documented as of this encounter Visit Diagnoses Not on filedocumented in this encounter Care Teams Supervisor Special Effects Relationship Specialty Start Date End Date Leslee, Provider Not In The System, [place] [address] PCP - General 04/16/23 documented as of this encounter
--- OUTSIDE RECORDS SUMMARY | 2024-10-08 10:00 | XMS_ITS ---
Author Organization [facility] Address [address] [id number] Care Team Providers Care Horse Riding Coach Or Instructor Name Role Phone Timothy Granda DO Primary Care Provider [phone] Hepatitis C Program Status:Paused (Paused) Start date:08/03/2022 Enrollment date:08/03/2022 Enrollment reason:HCV Continued Care and Services Coordination
--- OUTSIDE RECORDS SUMMARY | 2024-10-08 10:00 | XMS_ITS | Encounter Summary ---
Author Organization [employer] ([place], [place], [place], [place]) Address [address] [place] [address] Care Team Providers Care Attending Ambulatory Care Name Role Phone [facility], Provider Not In The System Primary Care Provider Unavailable Encounter Details Date Type Department Care Team (Late st Contact Info) Description 04/28/2019 Transcribed Document [facility] [place] [facility] [place] [address] ProviderJean-Claude MD [address], [place] [id number] Social History Tobacco Use Types Packs/Day Years Used Date Smoking Tobacco: Never Assessed Comments Unknown Sex and Gender Information Value Date Recorded Sex Assigned at Not on file Legal Sex Female 5:42 PM CDT Gender Identity Not on file Sexual Orientation Not on file documented as of this encounter Miscellaneous Notes * Cerner Conversion Note - Historical ProviderMD - 04/28/2019 8:05 AM RESIDENT CARE ASSOCIATE [facility] Main OR IntraOp Summary Primary Physician: MADISON OSPINA MD-ORT Finalized Date/Time: 04/28/19 08:39:15 Pt. Name: FARRAH ATKINSON D.O.B./Sex: 1950 Female Med Rec #: [id number] Physician: MADISON OSPINA MD-ORT Financial #: [id number] Pt. Type: O Room/Bed: Admit/Disch: 04/28/19 05:30:00 - [place] [facility] [place] Attendance Entry 1 Entry 2 Entry 3 Case Attendee MADISON OSPINA MD-ORT WICKER, KAREN KIM, ARIA WATERS RN Role Performed Surgeon/Proceduralist, BLENDER LABORER/Nurse Refinery Operator Light Ends Recovery Power Reactor Supervisor, First First Time In 04/28/19 07:39:00 04/28/19 07:39:00 04/28/19 07:39:00 Time Out 04/28/19 08:34:00 04/28/19 08:34:00 04/28/19 08:34:00 Procedure Knee Arthroscopy Knee Arthroscopy Knee Arthroscopy Other Attendee Superficial Wound Closed By: Last Modified By: ARIA MELCHOR RN LONGSWORTH, GARY, RN LONGSWORTH, GARY, SPENCER 04/28/19 08:34:51 04/28/19 08:34:51 04/28/19 08:34:51 Entry 4 Entry 5 Case Attendee CARI CUMMINGS OTHER, ATTENDEE #1 Role Performed Scrub, First Student Time In 04/28/19 07:39:00 04/28/19 07:39:00 Time Out 04/28/19 08:34:00 04/28/19 08:34:00 Procedure Knee Arthroscopy Knee Arthroscopy Other Attendee JOSELIN PEARL STUDENT Superficial Wound Closed By: Last Modified By: ARIA MELCHOR RN LONGSWORTH, GARY, SPENCER 04/28/19 08:34:51 04/28/19 08:34:51 [facility] IntraOp Case Attendance Audit 04/28/19 08:34:51 Puffer Tender: LONGGA Modifier: LONGGA 1 <+> Time Out 1 <*> Procedure Knee Arthroscopy 2 <+> Time Out 2 <*> Procedure Knee Arthroscopy 3 <+> Time Out 3 <*> Procedure Knee Arthroscopy 4 <+> Time Out 4 <*> Procedure Knee Arthroscopy 5 <+> Time Out 5 <*> Procedure Knee Arthroscopy 04/28/19 08:07:14 Puffer Tender: LONGGA Modifier: LONGGA <+> 1 Time In <+> 1 Procedure 2 <+> Time In 2 <*> Procedure Knee Arthroscopy 3 <+> Time In 3 <*> Procedure Knee Arthroscopy 4 <+> Time In 4 <*> Procedure Knee Arthroscopy 5 <+> Time In 5 <*> Procedure Knee Arthroscopy [facility] IntraOp Case Times Entry 1 Patient In Room Time 04/28/19 07:39:00 Out Room Time 04/28/19 08:34:00 Anesthesia Start Time 04/28/19 07:39:00 Stop Time 04/28/19 08:34:00 Anesthesia Ready 04/28/19 07:39:00 Surgery / Procedure Times Start Time 04/28/19 08:05:00 Stop Time 04/28/19 08:26:00 Last Modified By: ARIA MELCHOR RN 04/28/19 08:34:50 [facility] IntraOp Case Times Audit 04/28/19 08:34:50 Puffer Tender: LONGGA Modifier: LONGGA <+> 1 Out Room Time <+> 1 Stop Time 04/28/19 08:31:56 Puffer Tender: LONGGA Modifier: LONGGA <+> 1 Stop Time [facility] IntraOp Communication Entry 1 Communication To Family/Significant other Comment PROCEDURE ENDING Communication By ARIA MELCHOR RN Date and Time 04/28/19 08:25:00 Last Modified By: ARIA MELCHOR RN 04/28/19 08:32:13 [facility] IntraOp Counts Verification Entry 1 Procedure Knee Arthroscopy Count Info Count Type Sponge, Sharps Counts Verification Baseline/pre-procedure Sequence Count Results Correct, surgeon notified Counts Performed By Count Performed By CARI CUMMINGS (Scrub) Count Performed By ARIA MELCHOR RN (RN) Last Modified By: ARIA MELCHOR RN 04/28/19 07:25:51 [facility] IntraOp Counts Final Entry 1 Procedure Knee Arthroscopy Final Count Info Count Type Sponge, Sharps Counts Verification Skin Closure/end of Sequence procedure Count Results Correct, surgeon notified Counts Performed By Count Performed By CARI CUMMINGS (Scrub) Count Performed By ARIA MELCHOR RN (RN) Last Modified By: ARIA MELCHOR RN 04/28/19 08:18:01 [facility] IntraOp Delays Entry 1 Delay Reason Surgeon late - did not call Duration 9 Minute(s) Comment SURGEON A LITTLE LATE, ANSWERED PATIENT'S QUESTIONS Last Modified By: RAIA MELCHOR RN 04/28/19 08:16:25 [facility] IntraOp Departure from OR Entry 1 Integumentary Assessment Integumentary WDL Assessment WDL Skin Description Dry (WDL with exeptions) Transfer/Handoff Transfer to PACU Phase I Handoff Method Bedside/Face to face Post-op Transport Stretcher/Gurney Via Patient Transport ARIA MELCHOR RN, Accompanied by FARRAH MANE CRNA Last Modified By: ARIA MELCHOR RN 04/28/19 08:32:27 [facility] IntraOp Departure from OR Audit 04/28/19 08:32:27 Puffer Tender: EMBER Modifier: LONGGA 1 <*> Patient Transport Accompanied by ARIA MELCHOR RN [facility] IntraOp Dressing and Packing Entry 1 Type Dressing Location RIGHT KNEE Wound Dressing Item Xeroform, 4x4's, Kerlix/Kareem, Zi Applied By MADISON OSPINA MD-ORT Last Modified By: ARIA MELCHOR RN 04/28/19 08:16:38 [facility] IntraOp Fire Risk Assessment Entry 1 Fire Info Surgical Site or 0- No Incision Above the Xyphoid Open O2 Source 0- No (Mask or Cannula) Available Ignition 1- Yes (ESU, Laser, Light Source) Fire Risk 1 Assessment Score Fire Score Fire Risk Yes Assessment Complete Fire Risk ARIA MELCHOR RN Assessment Verified By Fire Risk 04/28/19 08:15:00 Assessment Verified Date/Time Fire Risk High Risk Protocol Yes Implemented Standard Fire Yes Safety Precautions Followed Last Modified By: ARIA MELCHOR RN 04/28/19 08:15:47 [facility] IntraOp General Case Cabinet Assembler 1 Case Information OR OR 05 SJE Case Level 1 Room Verified Yes Wound Class I - Clean Specialty SN Orthopedic Anesthesia Type General ASA Class 3 Diagnosis Preop Diagnosis PATELLAR CHONDROMALACIA RIGHT KNEE Postop Same As Preop No Postop Diagnosis DICTATED BY Mary Last Modified By: ARIA MELCHOR RN 04/28/19 08:15:39 [facility] IntraOp General Case Data Audit 04/28/19 08:15:39 Puffer Tender: EMBER Modifier: LONGGA <+> 1 ASA Class <+> 1 Anesthesia Type <+> 1 Postop Same As Preop <+> 1 Preop Diagnosis <+> 1 Postop Diagnosis <+> 1 Room Verified [facility] IntraOp Intraoperative Assessment Entry 1 Valid History / Yes Physical in Chart Preoperative Yes Checklist Reviewed/Evaluated Allergies Reviewed Yes Patient is Latex No Sensitive Isolation Not applicable Precautions Noted Level of WDL Consciousness (WDL = Alert, Oriented to Person, Place, and Time) Skin Assessment Yes Verified Present Upon IVs Arrival to OR Last Modified By: ARIA MELCHOR RN 04/28/19 08:08:21 [facility] IntraOp Intraoperative Equipment Entry 1 Type Equipment Equipment Equipment Erick Suction System ID Number [id number] Intraop Monitoring Antiembolic Devices Scopes Photo/Video Documentation Last Modified By: ARIA MELCHOR RN 04/28/19 08:14:07 [facility] IntraOp Medication Admin Entry 1 Medication/Irrigant epinephrine 30mg/30ml vial - [id number] Route of 3ML/3000ML OF NS Administration IRRIGATION Dose Volume QS Administered By MADISON OSPINA MD-ORT Procedure Irrigation Last Modified By: ARIA MELCHOR RN 04/28/19 08:11:43 [facility] IntraOp Patient Positioning Entry 1 Procedure Knee Arthroscopy Body Position Supine Left Arm Position Secured on padded arm board Right Arm Position Secured on padded arm board Left Leg Position Secured in Leg Tavarez Right Leg Position Secured in Leg Tavarez Feet Uncrossed Yes Pressure Points Yes Checked Positioning Devices Pillows, Safety Strap, Chest, Arm Board Device Position FOOT OF BED DOWN, WELL LEG TAVAREZ TO LEFT LEG, AMSCO ARTHROSCOPY LEG TAVAREZ FOR RIGHT LEG Positioned By FARRAH MANE, PRAVIN, ARIA MELCHOR RN, MADISON OSPINA MD-ORT Position Verified Positioning Yes Verified by Anesthesia Positioning Yes Verified by Surgeon Last Modified By: ARIA MELCHOR RN 04/28/19 08:17:49 [facility] IntraOp Patient Positioning Audit 04/28/19 08:17:49 Puffer Tender: LONGGA Modifier: LONGGA 1 <*> Procedure Knee Arthroscopy 1 <*> Device Position FOOT OF BED DOWN, WELL LEG TAVAREZ TO LEFT LEG, ARTHROSCOPY LEG TAVAREZ FOR RIGHT LEG [facility] IntraOp Sign In Entry 1 Patient, Site, Yes Procedure Identified Surgical Consent Yes Confirmed Relevant Surgical Yes Documents Available Surgical Site Yes Marked by person performing procedure Anesthesia Machine Yes Check Completed Medication Checks Yes Completed Allergies Yes Airway Difficult Yes Airway/Aspiration Risk Difficult Yes Airway/Aspiration Intervention Equipment Available Blood Loss Risk No Blood Loss No Intervention Equipment Prepared and Ready Blood Identifiers Not applicable Verified Per Policy Hypothermia Risk Yes Warming Measures Yes Taken Last Modified By: ARIA MELCHOR RN 04/28/19 08:09:32 [facility] Intra Op Sign Out Entry 1 RN Confirmation Surgical Yes Procedure(s) Identified Instrument, Sponge Yes and Sharps Counts Correct/Documented Equipment Problems N/A Documented Specimen Labeled N/A Correctly Urinary Catheter N/A Documented in IView Thompson Patient Yes Recovery Concerns Reviewed with Anesthesia Provider, Surgeon and RN Thompson Patient Yes Management Concerns Reviewed with Anesthesia Provider, Surgeon and RN Safety Checklist Yes Elements Complete? RN Sign Out ARIA MELCHOR RN Signature RN Sign Out 04/28/19 08:32:00 Signature Date/Time Plan of Care Outcome - Fire Risk OUTCOME STATEMENT: Goal met Patient is free from injury related to surgical fire Plan of Care Outcome - Pt Positioning OUTCOME STATEMENT: Goal met Absence of signs and symptoms of positioning injury. Plan of Care Outcome - Skin Prep OUTCOME STATEMENT: Goal met Intraoperative care is consistent with measures to prevent infection Plan of Care Outcome - Xray/Images OUTCOME STATEMENT: N/A Absence of observable signs or symptoms of radiation injury Plan of Care Outcome - Counts OUTCOME STATEMENT: Goal met Absence of signs and symptoms of injury related to extraneous objects Last Modified By: ARIA MELCHOR RN 04/28/19 08:32:42 [facility] IntraOp Skin Prep Entry 1 Procedure Knee Arthroscopy Prescribed Yes Pre-Surgical Prep Completed Prep Area RIGHT LEG Intraop Prep Integumentary WDL Assessment WDL Prep Agents Chloraprep Prep by ARIA MELCHOR RN Hair Removal Methods No hair removal performed Last Modified By: ARIA MELCHOR RN 04/28/19 08:09:16 S[facility] IntraOp Surgical Procedures Entry 1 Procedure Knee Arthroscopy Additional RIGHT KNEE ARTHROSCOPY Procedure FOR RETROPATELLAR Description CHONDROPLASTY AND PARTIAL MEDIAL MENISECTOMY Primary Procedure Yes Primary Surgeon MADISON OSPINA MD-ORT Start 04/28/19 08:05:00 Stop 04/28/19 08:26:00 Anesthesia Type General Specialty SN Orthopedic Wound Class I - Clean Last Modified By: ARIA MELCHOR RN 04/28/19 08:31:50 S[facility] IntraOp Surgical Procedures Audit 04/28/19 08:31:50 Puffer Tender: LONGGA Modifier: LONGGA 1 <*> Procedure Knee Arthroscopy 1 <+> Stop 04/28/19 08:27:35 Puffer Tender: LONGGA Modifier: LONGGA 1 <*> Procedure Knee Arthroscopy 1 <*> Additional Procedure Description RIGHT KNEE ARTHROSCOPY FOR RETROPATELLAR CHONDROPLASTY AND PARTIAL MENISCECTOMY 04/28/19 08:21:54 Puffer Tender: LONGGA Modifier: LONGGA 1 <*> Procedure Knee Arthroscopy 1 <*> Additional Procedure Description LEFT KNEE ARTHROSCOPY FOR RETROPATELLAR CHONDROPLASTY AND PARTIAL MENISCECTOMY S[facility] IntraOp Temp Regulation Devices Entry 1 Temp Regulation Temperature Forced Air Warming Regulation Device device Temperature 4765 Regulation Device Serial/Unit Number Temperature Upper body Regulation Site Temperature FARRAH MANE, BLENDER LABORER Regulation Device Applied by Last Modified By: ARIA MELCHOR RN 04/28/19 08:08:58 [facility] IntraOp Time Out Entry 1 Procedure to be Knee Arthroscopy Performed Time Out Time Out Pause Time 04/28/19 08:04:00 All activity Yes suspended (unless life threatening emergency) Team Verbally Correct patient Confirms Information identity, Correct side and site are marked, Consent form is present and accurate, Agreement on the procedure to be done, Correct patient position, Relevant images/results properly labeled/appropriately displayed, Confirm antibiotics have been administered, Confirm the skin prep has dried, Confirm prosthesis/implant/devic e is present, Performed in location of procedure after prepped/draped Antibiotic Yes Prophylaxis Administered Or In Progress Within the Last 60 Minutes Beta Shin N/A Administered Venous N/A Thromboembolism Prophylaxis Required Anticipated Critical Events Surgeon None expected Anesthesia Provider Patient specific concerns Nursing Assures Sterility of instruments Essential Imaging Yes Labeled and Displayed Last Modified By: ARIA MELCHOR RN 04/28/19 08:08:16 [facility] IntraOp Tourniquet Entry 1 Type Pneumatic Serial/Unit Number 2134 Setting 300 mmHg Pheumatic Yes Tourniquet Checked Per Protocol Size 34 inches Placement Thigh, left upper Skin Protection - Yes Padded Under Cuff Applied By MADISON OSPINA MD-ORT Times Start Time 04/28/19 08:04:00 Stop Time 04/28/19 08:26:00 Last Modified By: ARIA MELCHOR RN 04/28/19 08:31:38 S[facility] IntraOp Tourniquet Audit 04/28/19 08:31:38 Puffer Tender: EMBER Modifier: EMBER <+> 1 Stop Time Case Comments <None> Finalized By: ARIA MELCHOR, RN Document Signatures Signed By: ARIA MELCHOR RN 04/28/19 08:39 Electronically signed by May [facility] Conversion Bookkeepers Supervisor Cerner at 07/23/2022 4:21 PM CDT documented in this encounter Plan of Treatment Not on file documented as of this encounter Visit Diagnoses Not on filedocumented in this encounter Care Teams Attending Ambulatory Care Relationship Specialty Start Date End Date Leslee, Provider Not In The System, [place] [address] PCP - General 04/16/23 documented as of this encounter
--- OUTSIDE RECORDS SUMMARY | 2024-10-08 10:00 | XMS_ITS | Referral Summary ---
Author Organization [employer] ([place], [place], [place], [place]) Address [address] [place] [address] Care Team Providers Care Floral Merchandiser Name Role Phone [facility], Provider Not In The System Primary Care Provider Unavailable Social History Tobacco Use Types Packs/Day Years Used Date Smoking Tobacco: Never Assessed Food Insecurity Answer Date Recorded Food run out past 12 months Not on file 04/02 Food did not last past 12 months Not on file 04/12/2023 Employment Answer Date Recorded Help finding and keeping a job Not on file 0 04/12/2023 Family and Community Support Answer Lang e Recorded Help with Day to Day Activities Not on file 04/12/2023 Feeling Lonely or Isolated Not on file 04/12 Educational Attainment Answer Date Dereje rded Speak language other than Maori at home Not on file 04/12/2023 Want help with school or training Not on file 04/12/2023 Substance Use Answer Date Recorded Used prescription meds for non-medical reasons N ot on file 04/12/2023 Used illegal drugs past 12 months Not on file 04/12/2023 Comments Unknown Sex and Gender Information Value Date Recorded Sex Assigned at Not on file Legal Sex Female 5:42 PM CDT Gender Identity Not on file Sexual Orientation Not on file Plan of Treatment Not on file Care Teams Floral Merchandiser Relationship Specialty Start Date End Date [facility], Provider Not In The System, [place] [address] PCP - General 04/16/23
--- OUTSIDE RECORDS SUMMARY | 2024-10-08 10:00 | XMS_ITS | Patient Health Record ---
Author Organization [facility] Address [address] [place] [address] Care Team Providers Care Change Management Facilitator Name Role Phone Timothy Granda DO Primary Care Provider Tha Chaudhry Unavailable [phone] Jesus Rose Unavailable Unavailable Reason For Referral No Information Encounters Encounter Location Date Provider Diagnosis [facility] [address] [place] [address] 04/01/2024 Tha Krishnamurthy [facility] [address] [place] [address] 05/13/2024 Tha Krishnamurthy [facility] [address] [place] [address] 06/17/2024 Tha Krishnamurthy Plan Of Treatment No Information Insurance Providers Payer Name Payer Address Payer Phone Subscriber Number Group Number Insured Name Patient Relationship to Insured Coverage Start Date Coverage End Date Medicare CGS Administrators [address] [id number] Farrah Anna Self - patient is the insured
--- OUTSIDE RECORDS SUMMARY | 2024-10-08 10:00 | XMS_ITS ---
Author Organization [facility] Care Team Providers Care Bone Density Technician Name Role Phone Chandra Leahy Unavailable Unavailable Allergies and adverse reactions Code CodeSystem Substance Reaction Severity StartDate Concern Status 644287404 SNOMED CT Quinolones Unknown 09/04/2022 active Compazine Unknown 09/04/2022 active 2551 RXNORM Ciprofloxacin Unknown 09/04/2022 active 36287 RXNORM Azithromycin Unknown 09/04/2022 active Care Team Name Role Address Phone Organization Dates Chandra Leahy PCP [address] [place] [address], [address], [place] States (Office): : [facility] 09/04/2022 - 09/06/2022 Immunizations Immunization Status Vaccine Details Vaccine Code CodeSystem Lang e Notes TB 2 Step Mantoux Skin Test completed tuberculin skin test; unspecified formulation lotNumber: [id number] expiry: 12/02/2023 Given 0.1 ml Left Forearm [...] AND SUBACUTE HEPATIC FAILURE WITHOUT COMA 09/04/[address] active 2 ACUTE KIDNEY FAILURE, UNSPECIFIED 09/04/[address] active 3 ACUTE RESPIRATORY FAILURE WITH HYPOXIA 09/04/[address] active 4 ANURIA AND OLIGURIA 09/04/[address] active 5 COLOSTOMY STATUS 09/04/[address] active 6 CONSTIPATION, UNSPECIFIED 09/04/[address] active 7 DEPRESSION, UNSPECIFIED 09/04/[address] active 8 DISORDER OF VEIN, UNSPECIFIED 09/04/[address] active 9 DYSPHAGIA, UNSPECIFIED 09/04/[address] active 10 ESSENTIAL (PRIMARY) HYPERTENSION 09/04/[address] active 11 GENERALIZED EDEMA 09/04/[address] active 12 HYPERLIPIDEMIA, UNSPECIFIED 09/04/[address] active 13 HYPOTHYROIDISM, UNSPECIFIED 09/04/[address] active 14 INSOMNIA, UNSPECIFIED 09/04/[address] active 15 IRRITABLE BOWEL SYNDROME WITH DIARRHEA 09/04/[address] active 16 MUSCLE WEAKNESS (GENERALIZED) 09/04/[address] active 17 OTHER ACIDOSIS 09/04/[address] act sherman 18 OTHER ASCITES 09/04/[address] act [place]man 19 OTHER SPECIFIED DISORDERS INVOLVING THE IMMUNE MECHANISM, NOT ELSEWHERE CLASSIFIED 09/04/[address] active 20 PERITONEAL ABSCESS 09/04/[address] active 21 PERSONAL HISTORY OF OTHER INFECTIOUS AND PARASITIC DISEASES 09/04/[address] active 22 PORTAL VEIN THROMBOSIS 09/04/[address] active 23 PRESENCE OF OTHER VASCULAR IMPLANTS AND GRAFTS 09/04/[address] active 24 RESPIRATORY DISORDERS IN DISEASES CLASSIFIED ELSEWHERE 09/04/[address] active 25 UNSPECIFIED VIRAL HEPATITIS C WITHOUT HEPATIC COMA 09/04/[address] active 26 VOLVULUS 09/04/[address] active Reason for Referral No Reasons for Referral Entered Social History Social History Observation Description Start Date End Date Code Code System Current Smoking Status Tobacco smoking consumption unknown 849801596 SNOMED CT Sex Assigned At Female 1950 24260-1 [facility] Gender Identity Female [id number] [address] Vital Signs Code Code System Vitals Name Values and Units Timing Information 60899-8 [facility] Pain Level Value=2.0 09/06/2022 53416-4 [facility] O2 % BldC Oximetry Value=94.0 Units= % 09/04/2022 9279-1 [facility] Respiratory Rate Value=20.0 Units=/m in 09/04/2022 8462-4 [facility] Blood Pressure-Diastolic Value=63 Un its=mmHg 09/04/2022 8480-6 [facility] Blood Pressure-Systolic Kvqwn=035 Un its=mmHg 09/04/2022 8310-5 [facility] Body Temperature Value=98.4 Units= F 09/04/2022 8867-4 [facility] Heart rate Value=95.0 Units=/min 07/2022 19666-2 [facility] Weight Kuiif=649.6 Units=Lbs 07/2022 8302-2 [facility] Height Value=62.0 Units=Inches 09/04/2022
--- OUTSIDE RECORDS SUMMARY | 2024-10-08 10:00 | XMS_ITS | Clinical Summary ---
Author Organization [facility] Address [address] [place] [address] Care Team Providers Care Telecommunication Lines Repairer Name Role Phone Unavailable Primary Care Provider Unavailabl e Allergies Active Allergy Reactions Criticality Noted Date Comments Ciprofloxacin 09/04/2022 Quinolones Other (See Comments) Low 03/08/2016 Fluoroquinolones- knee tendon, extreme pain and risk of rupture. Note: joint pain- Major Joint pain Fluoroquinolones- knee tendon, extreme pain and risk of rupture. Medications acyclovir (ZOVIRAX) 400 MG tablet 04/04/2024 Active amLODIPine (NORVASC) 5 MG tablet Take 1 tablet by mouth daily 11/16/2023 Active ARIPiprazole (ABILIFY) 2 MG tablet Take 1 tablet by mouth daily 05/06/2024 Active atorvastatin (LIPITOR) 40 MG tablet 04/04/2024 Active vitamin D (CHOLECALCIFERO L) 50 MCG (1999) CAPS capsule Take 1 capsule by mouth daily Active cloNIDine (CATAPRES) 0.1 MG tablet TAKE ONE TO TWO TABLETS BY MOUTH 2 TO 3 TIMES A DAY NEEDED FOR ANXIETY MAY CAUSE DROWSINESS 11/08/2023 Active dicyclomine (BENTYL) 10 MG capsule 04/10/2024 Active tiZANidine (ZANAFLEX) 4 MG tablet 03/20/2024 Active CREON 19942-786192 units CPEP delayed release capsule TAKE ONE CAPSULE BY MOUTH WITH MEALS AND/OR SNACKS DIRECTED 03/04/2024 Active oxyCODONE HCl (OXY-IR) 10 MG immediate release tablet Take 0.5 tablets by mouth every 4 hours as needed. Max Daily Amount: 30 mg Active losartan (COZAAR) 50 MG tablet 02/14/2024 Active levothyroxine (SYNTHROID) 25 MCG tablet 04/04/2024 Active fluticasone-manisha meterol (ADVAIR) 100-50 MCG/ACT AEPB diskus inhaler 05/01/2024 Acti ve HYDROmorphone (DILAUDID) 4 MG tablet 05/07/2024 Active ferrous sulfate (IRON 325) 325 (65 Fe) MG tablet Take 1 tablet by mouth daily (with breakfast) Active DULoxetine (CYMBALTA) 60 MG extended release capsule Take 2 capsules by mouth daily 05/06/2024 Active diphenoxylate-a tropine (LOMOTIL) 2.5-0.025 MG per tablet Take 1 tablet by mouth 3 times daily. 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); Chronic left shoulder pain 09/05/2024 Telephone [facility] [address] [place] [address] Sharon Paulino MD IMAGING 08/28/2024 11:15 AM EDT Office Visit [facility], [place] [address] [address] Sharon Paulino MD Left shoulder pain, unspecified chronicity (Primary Dx); History of total replacement of left shoulder joint 08/06/2024 11:10 AM EDT Ancillary Procedure [address] [address] Left shoulder pain, unspecified chronicity; History of total replacement of left shoulder joint 08/06/2024 11:00 AM EDT Office Visit [address] [place] [address] Reji Phillpi MD Partial tear of left subscapularis tendon, sequela (Primary Dx); Tendinopathy of left rotator cuff; History of total replacement of left shoulder joint 07/21/2024 Telephone [facility], [address] [place] [address] Eamon Wagner APPT (PT NEEDS TO BE SCHEDULED FOR DR PHILLIP FOR US) from Last 3 Months Family History Medical History Relation Name Comments Cancer Mother Yanely Guy Bery bad arthr itis, 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 Relation Name Status Comments Mother Yanely Guy Alive Social History Tobacco Use Types Packs/Day Years [...] Don't know 05/08/2024 1: 41 PM EST Last Filed Vital Signs Vital Sign Reading Time Taken Comments Blood Pressure - - Pulse - - Temperature - - Respiratory Rate - - Oxygen Saturation - - Inhaled Oxygen Concentration - - Weight 52.2 kg (115 lb) 08/28/2024 11:16 AM EDT Height 154.9 cm (5' 1 ) 08/28/2024 11:16 AM EDT Body Mass Index 21.73 08/28/2024 11:16 AM EDT Plan of Treatment Health Maintenance Due Date Last Done Comments Lipids 09/26/1961 Depression Screen 1963 Hepatitis C screen 09/26/1969 DTaP/Tdap/Td vaccine (1 - Tdap) 09/26/1970 Hepatitis A vaccine (1 of 2 - Risk 2-dose series) 09/26/1970 Colonoscopy 09/26/1996 Colorectal Cancer Screen 09/26/1996 FIT/FOBT: Average risk 09/26/1996 Fecal-DNA (Cologuard): Average risk 09/26/1996 Sigmoidoscopy/CT colonography 09/26/1996 Shingles vaccine (1 of 2) 09/26/2001 Hepatitis B vaccine (1 of 3 - Risk 3-dose series) 2011 Pneumococcal 50+ years Vaccine (2 of 2 - PCV) 02/15/2016 02/14/2015 Annual Wellness Visit (Medicare) 05/08/2024 COVID-19 Vaccine ( season) 2024 02/20/2024, 02/09/2023, 01/25/2022, Additional history exists Flu vaccine (#1) 10/31/2024 02/20/2024, 12/2022, 01/25/2022, Additional history exists Respiratory Syncytial Virus (RSV) or age 60 yrs+ Completed 02/20/2024 Hib vaccine Aged Out No longer eligi ble based on patient's age to complete this topic Meningococcal (ACWY) vaccine Aged Out No longer eligible based on patient's age to complete this topic Meningococcal B vaccine Aged Out No l onger eligible based on patient's age to complete this topic Polio vaccine Aged Out No longer elig ible based on patient's age to complete this topic Procedures Procedure Name Priority Date/Time Associated Diagnosis Comments US EXTREMITY JOINT LEFT NON VASC COMPLETE Routine 08/06/2024 12:39 PM EDT Left shoulder pain, unspecified chronicity History of total replacement of left shoulder joint from Last 3 Months Results * US EXTREMITY JOINT LEFT NON VASC COMPLETE (08/06/2024 12:39 PM EDT) Narrative Epic, User - 08/06/2024 12:39 PM EDT Radiology result is complete; follow up with provider / physician office for radiology results us Edsunita Phillip MD [facility] [place] ORDERABLES F inal Result from Last 3 Months Insurance MEDICARE Member Subscriber Plan / Payer (Ef fective 2013-Present) Name:Farrah Atkinson Relation to Subscriber:Self Name:Farrah Atkinson Payer ID:Not on file Group ID:Not on file Type:Not on file Address: [address]
--- OUTSIDE RECORDS SUMMARY | 2024-10-08 10:00 | XMS_ITS | Encounter Summary ---
Author Organization Healthcare Address [address] [place] [address] Care Team Providers Care Director It Name Role Phone Timothy Granda DO Primary Care Provider [phone] Sadia Campo DBA MANAGER Unavailable Unavailable Encounter Details Date Type Department Care Team (Late st Contact Info) Description 07/24/2023 Lab Requisition [facility] [address] [place] [address] Miky Coleman MD [address] [facility] [address] [place] [address] Encounter for general adult medical [...] place to sleep or slept in a snf (including now)? Patient refused 07/23/2023 CAGE ASSESSMENT [...] drink first t mini in the morning (EYE-TRUCK REPAIR SERVICE ESTIMATOR) to steady your nerves or to get [...] at day 1 07/25/2023 12:01 AM EDT [facility] Swab (Nares and Renata Rectal) 07/23/2023 9:00 AM EDT 07/24/2023 4:19 AM EDT us Miky Coleman MD LAB MICROBIOLOGY - GEN ERAL ORDERABLES Final Result [facility] [address] [place] [address] documented in this encounter Visit Diagnoses Diagnosis [...] documented as of this encounter Care Teams Director It Relationship Specialty Start Date End Date Timothy Granda DO [address] [place] [address] PCP - General 05/25/23 Sadia Campo, [place] [address] High Rigger Operative Supervisor 08/03/22 06/21/24 documented as of this encounter
--- OUTSIDE RECORDS SUMMARY | 2024-10-08 10:01 | XMS_ITS | Encounter Summary ---
Author Organization [employer] ([place], [place], [place], [place]) Address [address] [place] [address] Care Team Providers Care Wrist Hemmer Name Role Phone [facility], Provider Not In The System Primary Care Provider Unavailable Encounter Details Date Type Department Care Team (Late st Contact Info) Description 04/28/2019 Transcribed Document [facility] Family Medicine [address] [place] [address] ProviderJean-Claude MD [address] [place] [id number] Social History Tobacco Use Types Packs/Day Years Used Date Smoking Tobacco: Never Assessed Comments Unknown Sex and Gender Information Value Date Recorded Sex Assigned at Not on file Legal Sex Female 5:42 PM CDT Gender Identity Not on file Sexual Orientation Not on file documented as of this encounter Miscellaneous Notes * Cerner Conversion Note - Historical ProviderMD - 04/28/2019 8:29 AM DULL COAT MILL OPERATOR Pain Assessment Entered On: 04/28/2019 9:28 EST Performed On: 04/28/2019 9:35 EST by Eduarda Patel Rn Patient Care Bedside Intervention Information: HYDROmorphone Performed by Eduarda Patel Rn Patient Care Bedside on 04/28/2019 09:05:00 EST HYDROmorphone,0.5mg IV Push,Peripheral Line 1,Pain (Severe 7-10) Pain Assessment Pain Assessment : Follow-up assessment Pain Improved by Intervention : No Eduarda Patel Rn Patient Care Bedside - 04/28/2019 9:28 EST documented in this encounter Plan of Treatment Not on file documented as of this encounter Visit Diagnoses Not on filedocumented in this encounter Care Teams Wrist Hemmer Relationship Specialty Start Date End Date Sjh, Provider Not In The System, [place] [address] PCP - General 04/16/23 documented as of this encounter
--- OUTSIDE RECORDS SUMMARY | 2024-10-08 10:01 | XMS_ITS | Encounter Summary ---
Author Organization [employer] ([place], [place], [place], [place]) Address [address] [place] [address] Care Team Providers Care Head Sulfide Operator Name Role Phone [facility], Provider Not In The System Primary Care Provider Unavailable Encounter Details Date Type Department Care Team (Late st Contact Info) Description 04/28/[address] [facility] Family Medicine [address] [place] [address] ProviderJean-Claude MD [address] [place], [place] [id number] Social History Tobacco Use Types Packs/Day Years Used Date Smoking Tobacco: Never Assessed Comments Unknown Sex and Gender Information Value Date Recorded Sex Assigned at Not on file Legal Sex Female 5:42 PM CDT Gender Identity Not on file Sexual Orientation Not on file documented as of this encounter Miscellaneous Notes * Cerner Conversion Note - Historical ProviderMD - 04/28/2019 8:05 AM BUDGET CLERK [facility] Main OR PACU Summary Primary Physician: MADISON OSPINA MD-ORShantel Finalized Date/Time: 04/28/19 09:40:55 Pt. Name: MOISE ATKINSON/Sex: 1950 Female Med Rec #: [id number] Physician: MADISON OSPINA MD-ORT Financial #: [id number] Pt. Type: O Room/Bed: Admit/Disch: 04/28/19 05:30:00 - Institution: [facility] OR PACU Case Times Entry 1 In PACU I 04/28/19 08:38:00 Ready for PACU 04/28/19 09:33:00 Discharge Discharge from PACU 04/28/19 09:33:00 I Last Modified By: Eduarda Patel Rn Patient Care Bedside 04/28/19 09:40:12 [facility] Main OR PACU Case Times Audit 04/28/19 09:40:12 Livestock Farmers: SADE Modifier: SADE <+> 1 Ready for PACU Discharge <+> 1 Discharge from PACU I Finalized By: Eduarda Patel Rn Patient Care Bedside Document Signatures Signed By: Eduarda Patel Rn Patient Care Bedside 04/28/19 09:40 Electronically signed by May [facility] Conversion Senior Environmental Practice Leader Cerner at 07/23/2022 4:28 PM CDT documented in this encounter Plan of Treatment Not on file documented as of this encounter Visit Diagnoses Not on filedocumented in this encounter Care Teams Head Sulfide Operator Relationship Specialty Start Date End Date [facility], Provider Not In The System, [place] [address] PCP - General 04/16/23 documented as of this encounter
--- OUTSIDE RECORDS SUMMARY | 2024-10-08 10:01 | XMS_ITS | Encounter Summary ---
Author Organization [facility] Address [address] [place] [address] Care Team Providers Care Contract Paralegal Name Role Phone Unavailable Primary Care Provider Unavailabl e Reason for Visit * Reason Onset Date Comments IMAGING 09/05/2024 Encounter Details Date Type Department Care Team (Late st Contact Info) Description 09/05/2024 Telephone [facility] [address] [place] [address] [place] [address] [place] [address] [address] [place], [place] [id number] IMAGING Social History Tobacco Use Types Packs/Day Years [...]
--- OUTSIDE RECORDS SUMMARY | 2024-10-08 10:01 | XMS_ITS | Encounter Summary ---
Author Organization Healthcare Address [address] [place] [address] Care Team Providers Care Body Painter Name Role Phone Chandra Leahy MD Primary Care Provider [phone] Timothy Granda DO Primary Care Provider [phone] Sadia Campo SPRAY RIG OPERATOR Unavailable Unavailable Encounter Details Date Type Department Care Team (Late st Contact Info) Description 08/14/2022 Lab Requisition [facility] [address] [place] [address] Dilip Llody MD [address] [address] Encounter for general adult medical [...] drink first t mini in the morning (EYE-PROCESS COACH) to steady your nerves or to get [...] LAB MICROBIOLOGY - GENERAL ORDERABLES Final Result [facility] [address] [place] [address] documented in this encounter Visit Diagnoses Diagnosis Encounter for general adult medical examination without abnormal findings documented in this encounter Additional Health Concerns Infection Onset Date Last Indicated Resolved Time COVID-19 Rule-Out 07/22/2023 07/22/2023 07/22/2023 12:14 PM EDT C. difficile Rule-Out 07/26/2023 08/01/20232023 1:07 AM EDT Gastrointestinal Rule-Out 08/02/2023 08/01/2023 3:00 AM EDT documented as of this encounter Care Teams Body Painter Relationship Specialty Start Date End Date Chandra Leahy MD [address] [place] [address] PCP - General 08/02/22 05/24/23 Timothy Granda DO [address] [place] [address] PCP - General 05/25/23 Sadia Campo, [place] [address] Assistant Infant Toddler Teacher Power Engineer 08/03/22 06/21/24 documented as of this encounter
--- OUTSIDE RECORDS SUMMARY | 2024-10-08 10:01 | XMS_ITS | Encounter Summary ---
Author Organization [employer] ([place], [place], [place], [place]) Address [address] [place] [address] Care Team Providers Care Director Of Occupational Therapy Name Role Phone [facility], Provider Not In The System Primary Care Provider Unavailable Encounter Details Date Type Department Care Team (Late st Contact Info) Description 04/28/2019 Transcribed Document [facility] Family Medicine [facility] [place] [address] ProviderJean-Claude MD [address] [id number] Social History Tobacco Use Types Packs/Day Years Used Date Smoking Tobacco: Never Assessed Comments Unknown Sex and Gender Information Value Date Recorded Sex Assigned at Not on file Legal Sex Female 5:42 PM CDT Gender Identity Not on file Sexual Orientation Not on file documented as of this encounter Miscellaneous Notes * Cerner Conversion Note - Jean-Claude ProviderMD - 04/28/2019 9:47 AM AIRPLANE PATROLLER Patient Education Materials Follows: General Anesthesia, Adult, Care After This sheet gives you information about how to care for yourself after your procedure. Your health care provider may also give you more specific instructions. If you have problems or questions, contact your health care provider. What can I expect after the procedure? After the procedure, the following side effects are common: ??? Pain or discomfort at the IV site. ??? Nausea. ??? Vomiting. ??? Sore throat. ??? Trouble concentrating. ??? Feeling cold or chills. ??? Weak or tired. ??? Sleepiness and fatigue. ??? Soreness and body aches. These side effects can affect parts of the body that were not involved in surgery. Follow these instructions at home: For at least 24 hours after the procedure: ??? Have a responsible adult stay with you. It is important to have someone help care for you until you are awake and alert. ??? Rest as needed. ??? Do not: ? Participate in activities in which you could fall or become injured. ? Drive. ? Use heavy machinery. ? Drink alcohol. ? Take sleeping pills or medicines that cause drowsiness. ? Make important decisions or sign legal documents. ? Take care of children on your own. Eating and drinking ??? Follow any instructions from your health care provider about eating or drinking restrictions. ??? When you feel hungry, start by eating small amounts of foods that are soft and easy to digest (bland), such as toast. Gradually return to your regular diet. ??? Drink enough fluid to keep your urine pale yellow. ??? If you vomit, rehydrate by drinking water, juice, or clear broth. General instructions ??? If you have sleep apnea, surgery and certain medicines can increase your risk for breathing problems. Follow instructions from your health care provider about wearing your sleep device: ? Anytime you are sleeping, including during daytime naps. ? While taking prescription pain medicines, sleeping medicines, or medicines that make you drowsy. ??? Return to your normal activities as told by your health care provider. Ask your health care provider what activities are safe for you. ??? Take gpdp-pjy-ebbojni and prescription medicines only as told by your health care provider. ??? If you smoke, do not smoke without supervision. ??? Keep all follow-up visits as told by your health care provider. This is important. Contact a health care provider if: ??? You have nausea or vomiting that does not get better with medicine. ??? You cannot eat or drink without vomiting. ??? You have pain that does not get better with medicine. ??? You are unable to pass urine. ??? You develop a skin rash. ??? You have a fever. ??? You have redness around your IV site that gets worse. Get help right away if: ??? You have difficulty breathing. ??? You have chest pain. ??? You have blood in your urine or stool, or you vomit blood. Summary ??? After the procedure, it is common to have a sore throat or nausea. It is also common to feel tired. ??? Have a responsible adult stay with you for the first 24 hours after general anesthesia. It is important to have someone help care for you until you are awake and alert. ??? When you feel hungry, start by eating small amounts of foods that are soft and easy to digest (bland), such as toast. Gradually return to your regular diet. ??? Drink enough fluid to keep your urine pale yellow. ??? Return to your normal activities as told by your health care provider. Ask your health care provider what activities are safe for you. This information is not intended to replace advice given to you by your health care provider. Make sure you discuss any questions you have with your health care provider. Document Released: 06/25/2001 Document Revised: 11/02/2017 Document Reviewed: 11/02/2017 [employer] Interactive Patient Education ? 2019 [employer] Knee Arthroscopy, Care After Refer to this sheet in the next few weeks. These instructions provide you with information about caring for yourself after your procedure. Your health care provider may also give you more specific instructions. Your treatment has been planned according to current medical practices, but problems sometimes occur. Call your health care provider if you have any problems or questions after your procedure. What can I expect after the procedure? After the procedure, it is common to have: ??? Soreness. ??? Pain. Follow these instructions at home: Bathing ??? Do not take baths, swim, or use a hot tub until your health care provider approves. Incision care ??? There are many different ways to close and cover an incision, including stitches, skin glue, and adhesive strips. Follow your health care provider?s instructions about: ? Incision care. ? Bandage (dressing) changes and removal. ? Incision closure removal. ??? Check your incision area every day for signs of infection. Watch for: ? Redness, swelling, or pain. ? Fluid, blood, or pus. Activity ??? Avoid strenuous activities for as long as directed by your health care provider. ??? Return to your normal activities as directed by your health care provider. Ask your health care provider what activities are safe for you. ??? Perform ylaze-sj-wlabcb exercises only as directed by your health care provider. ??? Do not lift anything that is heavier than 10 lb (4.5 kg). ??? Do not drive or operate heavy machinery while taking pain medicine. ??? If you were given crutches, use them as directed by your health care provider. Managing pain, stiffness, and swelling ??? If directed, apply ice to the injured area: ? Put ice in a plastic bag. ? Place a towel between your skin and the bag. ? Leave the ice on for 20 minutes, 2?3 times per day. ??? Raise the injured area above the level of your heart while you are sitting or lying down as directed by your health care provider. General instructions ??? Keep all follow-up visits as directed by your health care provider. This is important. ??? Take medicines only as directed by your health care provider. ??? Do not use any tobacco products, including cigarettes, chewing tobacco, or electronic cigarettes. If you need help quitting, ask your health care provider. ??? If you were given compression stockings, wear them as directed by your health care provider. These stockings help prevent blood clots and reduce swelling in your legs. Contact a health care provider if: ??? You have severe pain with any movement of your knee. ??? You notice a bad smell coming from the incision or dressing. ??? You have redness, swelling, or pain at the site of your incision. ??? You have fluid, blood, or pus coming from your incision. Get help right away if: ??? You develop a rash. ??? You have a fever. ??? You have difficulty breathing or have shortness of breath. ??? You develop pain in your calves or in the back of your knee. ??? You develop chest pain. ??? You develop numbness or tingling in your leg or foot. This information is not intended to replace advice given to you by your health care provider. Make sure you discuss any questions you have with your health care provider. Document Released: 10/06/2005 Document Revised: 08/18/2016 Document Reviewed: 03/15/2015 [employer] Interactive Patient Education ? 2018 [employer] documented in this encounter Plan of Treatment Not on file documented as of this encounter Visit Diagnoses Not on filedocumented in this encounter Care Teams Director Of Occupational Therapy Relationship Specialty Start Date End Date Leslee, Provider Not In The System, [place] [address] PCP - General 04/16/23 documented as of this encounter
--- OUTSIDE RECORDS SUMMARY | 2024-10-08 10:01 | XMS_ITS | Clinical Summary ---
Author Organization Healthcare Address [address] [place] [address] Care Team Providers Care Right Of Way Clearer Name Role Phone Timothy Granda DO Primary Care Provider [phone] Allergies Active Allergy Reactions Criticality Noted Date [...] dysfunction present 07/22/2023 09/17/2023 Intra-abdominal abscess 08/23/2022 06/0 07/2022 Overview (08/29/2022): 08/22: CT A/P showed development [...] preservative free 02/14/2015 Influenza, trivalent, adjuvanted 12/22/2019 OneCard COVID-19 Vaccine (Blue Cap) 18+ 06/10/19 Moderna COVID-19 Vaccine (Re d Cap) 12+ years 07/18/2021,01/27/2021 Moderna COVID-19 Vaccine Bivalent 6months+ 01/25 PPD Skin Test (TB Skin Test) 09/04/2022 SOPATec Covid-19 Vaccine 12y+ , Mahesh Protein, PF, [...] place to sleep or slept in a fdc (including now)? Patient refused 07/23/2023 CAGE ASSESSMENT [...] drink first t mini in the morning (EYE-ROCK DUSTER) to steady your nerves or to get [...] 09/26/2001 [facility]-Zoster Vaccines (1 of 2) 09/26/2001 [facility]-RSV Vaccine: 60+ Years or (1 - Risk 60-74 years 1-dose series) 2011 [facility]-Pneumococcal Vaccine: 50+ Years (2 of 2 - PCV) 02/15/2016 02/14/2015 [facility]-Medicare Annual Wellness (AWV) 03/13/2023 03/13/2022 QVE-PATOO-15 Vaccine ( season) 2023 02/09/2023, 01/25/2022, 07/18/2021, Additional history exists [facility]-Depression Screening 03/27/2024 03/27/2023 [facility]-Influenza Vaccine (#1) 12/01/202402/09, 01/25/2022, 05/31/2021, Additional history exists Sigmoidoscopy 02/22/2028 02/21/2023, 02/21/2023 Colonoscopy 08/08/2032 08/08/2022, 050 10/2022, 12/07/2017 [facility]-Colorectal Cancer Screening 08/08/2032 [facility]-Hepatitis C Screening Completed 2023, 08/03/2022, 12/15/2021 HPV Vaccines Aged Out No longer eligi [...] Antigen Negative Negative 08/02/2023 7:49 PM EDT [facility] Hepatitis A Antibody IgM Negative Negative 08/02/2023 7:49 PM EDT [facility] Hepatitis B Core Antibody IgM Negative Negative 08/02/2023 7:49 PM EDT [facility] Blood Venous blood specimen / Unknown Venipuncture / Unknown 08/02/2023 2:56 PM EDT 08/02/2023 3:22 PM EDT Narrative [facility] - 08/02/2023 7:49 PM EDT Hepatitis [...] MD LAB BLOOD ORDERABLES Final R esult Performing Organization Address City/State/[facility] Co de Phone Number [facility] [address] [place] [address] * Flexible Sigmoidoscopy (02/21/2023 10:25 AM EST) [...] Misti Page MD Adam Rooks, MD Proceduralist associate vice president Adama Montes CRNA CRNA Harris, Kristi A, RN Endo Nurse Butch Little MD Fellow Tete Whitmore Endo Client Success Manager Preprocedure A history and physical has been [...] of bowel preparation was evaluated using the [place] Bowel Preparation Scale with scores of: left [...] of bowel preparation was evaluated using the [place] Bowel Preparation Scale with scores of: right [...] Chilo Biswas MD GI PROCEDURE ORDERABLES Lillie moe Result from Last 3 Months or Most Recently Relevant to Health Maintenance Insurance [facility] MEDICARE Member Subscriber Plan / Payer (Ef fective 2013-Present) Name:Farrah Atkinson Member ID:[id number] Relation to Subscriber:Self Name:Farrah Atkinson Subscriber ID:[id number] Payer ID:MEDICARE Group ID:Not on file Type:Medicare Address: [place] [phone] Advance Directives * Full Code (Latest Code [...] Patient has decision-making capacity? Yes Care Teams Right Of Way Clearer Relationship Specialty Start Date End Date Timothy Granda DO [address] [place] [id number] PCP - General 05/25/23
--- OUTSIDE RECORDS SUMMARY | 2024-10-08 10:01 | XMS_ITS | Encounter Summary ---
Author Organization [employer] ([place], [place], [place], [place]) Address [address] [place] [address] Care Team Providers Care Health Informatics Instructor Name Role Phone [facility], Provider Not In The System Primary Care Provider Unavailable Encounter Details Date Type Department Care Team (Late st Contact Info) Description 04/28/2019 Transcribed Document [facility] [place] Family Medicine [address] [place] [address] ProviderJean-Claude MD [address], [place] [id number] Social History Tobacco Use Types Packs/Day Years Used Date Smoking Tobacco: Never Assessed Comments Unknown Sex and Gender Information Value Date Recorded Sex Assigned at Not on file Legal Sex Female 5:42 PM CDT Gender Identity Not on file Sexual Orientation Not on file documented as of this encounter Miscellaneous Notes * Cerner Conversion Note - Historical ProviderMD - 04/28/2019 8:05 AM MANAGEMENT NURSE RN [facility] Main OR PreOp Summary Primary Physician: MADISON OSPINA MD-ORT Finalized Date/Time: 04/28/19 09:32:12 Pt. Name: MOISE ATKINSON/Sex: 1950 Female Med Rec #: [id number] Physician: MADISON OSPINA MD-ORT Financial #: [id number] Pt. Type: O Room/Bed: Admit/Disch: 04/28/19 05:30:00 - Institution: [facility] [place] PreOp Case Times Entry 1 In Preop 04/28/19 05:40:00 Ready for Holding n/a Room Patient Ready for 04/28/19 07:15:00 Surgery Patient Out of Preop 04/28/19 07:36:00 Patient Out of n/a Holding Room Last Modified By: ISAMAR MORRISON, SPENCER 04/28/19 09:32:08 [facility] PreOp Case Times Audit 04/28/19 09:32:08 Car Pick Up Driver: [id number] Modifier: [id number] <+> 1 Patient Out of Preop Finalized By: ISAMAR MORRISON, RN Document Signatures Signed By: ISAMAR MORRISON RN 04/28/19 09:32 Electronically signed by May [facility] Conversion Sanding Supervisor Cerner at 07/23/2022 4:31 PM CDT documented in this encounter Plan of Treatment Not on file documented as of this encounter Visit Diagnoses Not on filedocumented in this encounter Care Teams Health Informatics Instructor Relationship Specialty Start Date End Date [facility], Provider Not In The System, [place] [address] PCP - General 04/16/23 documented as of this encounter
--- OUTSIDE RECORDS SUMMARY | 2024-10-08 10:01 | XMS_ITS | Clinical Summary ---
Author Organization [facility] [place] Address [address] [place] [address] Phone Care Team Providers Care Radioisotope Technician Name Role Phone Unavailable Primary Care Provider Unavailabl e Allergies No known active allergies Medications * This document contains information received from the source organization and may not represent a complete record from that organization. DULoxetine (CYMBALTA) 60 mg Oral Capsule, Delayed Release(E.C.) TAKE 2 CAPSULES BY MOUTH ONCE DAILY 60 Capsule 3 5 Active ARIPiprazole (ABILIFY) 2 mg Oral Tablet TAKE 1 TABLET BY MOUTH ONCE DAILY 30 Tablet 5 Active cloNIDine (CATAPRES) 0.1 mg Oral [...] 2024 02/20/2024, 02/09/2023, 01/25/2022, Additional history exists Influenza Vaccine (#1) 2024 , 02/09/2023, 01/25/2022, Additional history exists Sigmoidoscopy 02/22/2028 02/21/2023 Colon Cancer Screening 08/08/2032 Colonoscopy 08/08/2032 08/08/2022, 05/0 10/2022, 12/07/2017 Hepatitis B Vaccine Aged Out No longe r eligible based on patient's age to complete this topic Meningococcal B Vaccine Aged Out No l onger eligible based on patient's age to complete this topic Insurance Prem Courtney [place] [id number] MEDICARE [place] PART A AND B [employer]
--- OUTSIDE RECORDS SUMMARY | 2024-10-08 10:01 | XMS_ITS | Encounter Summary ---
Author Organization [employer] ([place], [place], [place], [place]) Address [address] [place] [address] Care Team Providers Care Guitar Repairer Name Role Phone [facility], Provider Not In The System Primary Care Provider Unavailable Encounter Details Date Type Department Care Team (Late st Contact Info) Description 04/28/2019 Transcribed Document [facility] [place] [place] [address] [place] [address] ProviderJean-Claude MD [address], [place] [id number] Social History Tobacco Use Types Packs/Day Years Used Date Smoking Tobacco: Never Assessed Comments Unknown Sex and Gender Information Value Date Recorded Sex Assigned at Not on file Legal Sex Female 5:42 PM CDT Gender Identity Not on file Sexual Orientation Not on file documented as of this encounter Miscellaneous Notes * Cerner Conversion Note - Historical ProviderMD - 04/28/2019 8:05 AM HOME HEALTH TRAVEL OT [facility] Main OR PostOp Summary Primary Physician: MADISON OSPINA MD-ORT Finalized Date/Time: 04/28/19 10:18:29 Pt. Name: MOISE ATKINSON/Sex: 1950 Female Med Rec #: [id number] Physician: MADISON OSPINA MD-ORT Financial #: [id number] Pt. Type: O Room/Bed: Admit/Disch: 04/28/19 05:30:00 - Institution: [facility] [place] PostOp Case Times Entry 1 In PACU II 04/28/19 09:36:00 Ready for PACU II 04/28/19 10:15:00 Discharge Discharge from PACU 04/28/19 10:15:00 II Last Modified By: Shanel Conrad RN 04/28/19 10:18:24 Finalized By: Shanel Conrad, RN Document Signatures Signed By: Shanel Conrad RN 04/28/19 10:18 Electronically signed by May [facility] Conversion Medical Laboratory Scientist Cerner at 07/23/2022 4:27 PM CDT documented in this encounter Plan of Treatment Not on file documented as of this encounter Visit Diagnoses Not on filedocumented in this encounter Care Teams Guitar Repairer Relationship Specialty Start Date End Date [facility], Provider Not In The System, [place] [address] PCP - General 04/16/23 documented as of this encounter
--- OUTSIDE RECORDS SUMMARY | 2024-10-08 10:01 | XMS_ITS | Encounter Summary ---
Author Organization [employer] ([place], [place], [place], [place]) Address [address] [place] [address] Care Team Providers Care Forensic Manager Name Role Phone [facility], Provider Not In The System Primary Care Provider Unavailable Encounter Details Date Type Department Care Team (Late st Contact Info) Description 04/28/2019 Transcribed Document [facility] Family Medicine [address] [place] [address] ProviderJean-Claude MD [address], [place] [id number] Social History Tobacco Use Types Packs/Day Years Used Date Smoking Tobacco: Never Assessed Comments Unknown Sex and Gender Information Value Date Recorded Sex Assigned at Not on file Legal Sex Female 5:42 PM CDT Gender Identity Not on file Sexual Orientation Not on file documented as of this encounter Miscellaneous Notes * Cerner Conversion Note - Historical ProviderMD - 04/28/2019 10:01 AM [employer]AL[employer] 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 may advance diet as tolerated. May take Ewing 10-325mg 1 tablet by mouth every 4-6 hours as needed for pain. Next dose due after 1:30 this afternoon. Discharge Follow Up Instructions: light to moderate Activity per discussion with family. Cane or crutches if needed for comfort. Not necessary Activity: Discharge Activity: No strenuous activities Diet: Discharge Diet: Resume usual diet as tolerated Wound/Incision Care Instructions: Keep operative site/wound clean and dry. emove operative drerssing later todaay or tomorow and apply water proof bandaids Showering/Bathing Instructions: May shower woth water proof bandaids in place. Alternatively wrap knee in plastic wrap to shower Follow-Up Appointments Follow Up with MADISON OSPINA MD-ORT When 05/13/2019 09:30 AM EST Comments Appointment has been made Where: [address] [facility] [address] [place] [address]- Medications What How Much When Instructions Next Dose acyclovir (acyclovir 400 mg oral tablet) 1 Tablet(s) Oral Every Day atorvastatin 20 Milligram(s) Oral Every Day cloNIDine 0.1 Milligram(s) Oral As needed for Anxiety DULoxetine 30 Milligram(s) Oral Every Day estradiol 1 Milligram(s) Oral Every Day furosemide 40 Milligram(s) Oral Every Day lisinopril 5 Milligram(s) Oral Every Day nortriptyline 50 Milligram(s) Oral Every Day nystatin 100,000 Unit(s) Oral As needed for Itching Take your medications faithfully. Do NOT skip medication. Do NOT stop taking medications without the direction of a physician. Carry a list of your medications with you at all times, and take this medication list with you to your first follow up visit. Report any side effects. Avoid herbal remedies unless discussed with your physician. As part of your treatment plan, your physician may have prescribed a limited course of a controlled substance. This medication may be given to help people with moderate or severe pain or for other medical conditions, but there are risks involved with treatment. Common side effects may include nausea, constipation, drowsiness, sweating, itching, dry mouth, and rash. More serious side effects may include cognitive and motor impairment, like problems with thinking, concentrating, alertness, and movement (e.g. slowed reflexes), and driving and operating heavy machinery can be dangerous. It is important for you to talk to your physician if you have these side effects or questions. These controlled substances can produce physical dependence and be habit-forming if taken for an extended period of time, which means that the body has gotten used to them and may experience withdrawal symptoms if they are abruptly stopped. Withdrawal symptoms can include runny nose, sweating, goose bumps, diarrhea, abdominal cramping, rapid heartbeat, difficulty sleeping, and nervousness. Please dispose of unused and medications per pharmacy guidance. Education Materials General Anesthesia, Adult, Care After This sheet [...] activities are safe for you. ??? Take klby-ino-plxyyzo and prescription medicines only as told by [...] 06/25/2001 Document Revised: 11/02/2017 Document Reviewed: 11/02/2017 [employer] Patient Education ?? 2019 [employer] Knee Arthroscopy, Care After Refer to [...] and adhesive strips. Follow your health care provider???s instructions about: ? Incision care. ? Bandage [...] activities are safe for you. ??? Perform kdqkc-tu-zepmdk exercises only as directed by your health [...] Leave the ice on for 20 minutes, 2???3 times per day. ??? Raise the injured [...] 10/06/2005 Document Revised: 08/18/2016 Document Reviewed: 03/15/2015 [employer] Patient Education ?? 2018 [employer]. acetaminophen and hydrocodone (a SEET a MIN oh fen and ladonna droe KOE done) Hycet, Lorcet, Ewing, Verdrocet, Vicodin, Xodol, Zamicet What is the most important information I should know about acetaminophen and hydrocodone? MISUSE OF OPIOID MEDICINE CAN CAUSE ADDICTION, OVERDOSE, OR . Keep the medication in a place where others cannot get to it. An overdose of acetaminophen can damage your liver or cause . Call your doctor at once if you have pain in your upper stomach, loss of appetite, dark urine, or jaundice (yellowing of your skin or eyes). Taking opioid medicine during may cause life-threatening withdrawal symptoms in the . Fatal side effects can occur if you use opioid medicine with alcohol, or with other drugs that cause drowsiness or slow your breathing. Stop taking this medicine and call your doctor right away if you have skin redness or a rash that spreads and causes blistering and peeling. What is acetaminophen and hydrocodone? Hydrocodone is an opioid pain medication, sometimes called a narcotic. Acetaminophen is a less potent pain reliever that increases the effects of hydrocodone. Acetaminophen and hydrocodone is a combination medicine used to relieve moderate to severe pain. Acetaminophen and hydrocodone may also be used for purposes not listed in this medication guide. What should I discuss with my healthcare provider before taking acetaminophen and hydrocodone? You should not use this medicine if you are allergic to acetaminophen or hydrocodone, or if you have: ?? severe asthma or breathing problems; or ?? a blockage in your stomach or intestines. Tell your doctor if you have ever had: ?? liver disease; ?? a drug or alcohol addiction; ?? kidney disease; ?? a head injury or seizures; ?? urination problems; or ?? problems with your thyroid, pancreas, or gallbladder. If you use opioid medicine while you are , your baby could become dependent on the drug. This can cause life-threatening withdrawal symptoms in the baby after it is born. Babies born dependent on opioids may need medical treatment for several weeks. Do not breast-feed. This medicine can pass into breast milk and cause drowsiness, breathing problems, or in a nursing baby. How should I take acetaminophen and hydrocodone? Follow all directions on your prescription label. Never take this medicine in larger amounts, or for longer than prescribed. An overdose can damage your liver or cause . Tell your doctor if the medicine seems to stop working as well in relieving your pain. Always check your bottle to make sure you have received the correct pills (same brand and type) of medicine prescribed by your doctor. Never share this medicine with another person, especially someone with a history of drug abuse or addiction. MISUSE CAN CAUSE ADDICTION, OVERDOSE, OR . Keep the medicine in a place where others cannot get to it. Selling or giving away acetaminophen and hydrocodone is against the law. Measure liquid medicine carefully. Use the dosing syringe provided, or use a medicine dose-measuring device (not a kitchen spoon). If you need surgery or medical tests, tell the doctor ahead of time that you are using this medicine. You should not stop using this medicine suddenly. Follow your doctor's instructions about tapering your dose. Store at room temperature away from moisture and heat. Keep track of your medicine. You should be aware if anyone is using it improperly or without a prescription. Do not keep leftover opioid medication. Just one dose can cause in someone using this medicine accidentally or improperly. Ask your pharmacist where to locate a drug take-back disposal program. If there is no take-back program, flush the unused medicine down the toilet. What happens if I miss a dose? Since this medicine is used for pain, you are not likely to miss a dose. Skip any missed dose if it is almost time for your next dose. Do not use two doses at one time. What happens if I overdose? Seek emergency medical attention or call the Poison Help line at . An overdose of acetaminophen and hydrocodone can be fatal. The first signs of an acetaminophen overdose include loss of appetite, nausea, vomiting, stomach pain, sweating, and confusion or weakness. Later symptoms may include pain in your upper stomach, dark urine, and yellowing of your skin or the whites of your eyes. Overdose can also cause severe muscle weakness, pinpoint pupils, very slow breathing, extreme drowsiness, or coma. What should I avoid while taking acetaminophen and hydrocodone? Avoid driving or operating machinery until you know how this medicine will affect you. Dizziness or drowsiness can cause falls, accidents, or severe injuries. Do not drink alcohol. Dangerous side effects or could occur. Ask a doctor or pharmacist before using any other medicine that may contain acetaminophen (sometimes abbreviated as APAP). Taking certain medications together can lead to a fatal overdose. What are the possible side effects of acetaminophen and hydrocodone? Get emergency medical help if you have signs of an allergic reaction: hives; difficulty breathing; swelling of your face, lips, tongue, or throat. Opioid medicine can slow or stop your breathing, and may occur. A person caring for you should seek emergency medical attention if you have slow breathing with long pauses, blue colored lips, or if you are hard to wake up. In rare cases, acetaminophen may cause a severe skin reaction that can be fatal. This could occur even if you have taken acetaminophen in the past and had no reaction. Stop taking this medicine and call your doctor right away if you have skin redness or a rash that spreads and causes blistering and peeling. Call your doctor at once if you have: ?? noisy breathing, sighing, shallow breathing; ?? a light-headed feeling, like you might pass out; ?? liver problems--nausea, upper stomach pain, tiredness, loss of appetite, dark urine, silvia-colored stools, jaundice (yellowing of the skin or eyes); or ?? low cortisol levels-- nausea, vomiting, loss of appetite, dizziness, worsening tiredness or weakness. Seek medical attention right away if you have symptoms of serotonin syndrome, such as: agitation, hallucinations, fever, sweating, shivering, fast heart rate, muscle stiffness, twitching, loss of coordination, nausea, vomiting, or diarrhea. Serious side effects may be more likely in older adults and those who are overweight, malnourished, or debilitated. Long-term use of opioid medication may affect fertility (ability to have children) in men or women. It is not known whether opioid effects on fertility are permanent. Common side effects include: ?? dizziness, drowsiness, feeling tired; ?? nausea, vomiting, stomach pain; ?? constipation; or ?? headache. This is not a complete list of side effects and others may occur. Call your doctor for medical advice about side effects. You may report side effects to FDA at 5-444-IJZ-0490. What other drugs will affect acetaminophen and hydrocodone? You may have breathing problems or withdrawal symptoms if you start or stop taking certain other medicines. Tell your doctor if you also use an antibiotic, antifungal medication, heart or blood pressure medication, seizure medication, or medicine to treat HIV or hepatitis C. Opioid medication can interact with many other drugs and cause dangerous side effects or . Be sure your doctor knows if you also use: ?? cold or allergy medicines, bronchodilator asthma/COPD medication, or a diuretic ('water pill'); ?? medicines for motion sickness, irritable bowel syndrome, or overactive bladder; ?? other narcotic medications--opioid pain medicine or prescription cough medicine; ?? a sedative like Valium--diazepam, alprazolam, lorazepam, Xanax, Klonopin, Versed, and others; ?? drugs that make you sleepy or slow your breathing--a sleeping pill, muscle relaxer, medicine to treat mood disorders or mental illness; ?? drugs that affect serotonin levels in your body--a stimulant, or medicine for depression, Parkinson's disease, migraine headaches, serious infections, or nausea and vomiting. This list is not complete. Other drugs may affect acetaminophen and hydrocodone, including prescription and qfky-vnu-onlrxfq medicines, vitamins, and herbal products. Not all possible interactions are listed here. Where can I get more information? Your doctor or pharmacist can provide more information about acetaminophen and hydrocodone. Remember, keep this and all other medicines out of the reach of children, never share your medicines with others, and use this medication only for the indication prescribed. Every effort has been made to ensure that the information provided by [employer]. ('[employer]') is accurate, up-to-date, and complete, but no guarantee is made to that effect. Drug information contained herein may be time sensitive. [employer] information has been compiled for use by healthcare practitioners and consumers in the [place] and therefore [employer] does not warrant that uses outside of the [place] are appropriate, unless specifically indicated otherwise. [employer] drug information does not endorse drugs, diagnose patients or recommend therapy. [employer] drug information is an informational resource designed to assist licensed healthcare practitioners in caring for their patients and/or to serve consumers viewing this service as a supplement to, and not a substitute for, the expertise, skill, knowledge and judgment of healthcare practitioners. The absence of a warning for a given drug or drug combination in no way should be construed to indicate that the drug or drug combination is safe, effective or appropriate for any given patient. [employer] does not assume any responsibility for any aspect of healthcare administered with the aid of information [employer] provides. The information contained herein is not intended to cover all possible uses, directions, precautions, warnings, drug interactions, allergic reactions, or adverse effects. If you have questions about the drugs you are taking, check with your doctor, nurse or pharmacist. Copyright 6841-5333 [employer]. Version: 15.02. Revision Date: 02/04/2018. Emergency Awareness and Preventative Care STROKE is an EMERGENCY Every Minute Counts Act FAST and Check for these signs: FACE Does the face look uneven? ARM Does one arm drift down? SPEECH Does their speech sound strange? TIME Call at any sign of stroke Stroke Risk Factors Atrial Fibrillation (irregular heartbeat) Diabetes Family history of stroke Heart Disease Heavy alcohol use High Blood Pressure High Cholesterol Physical inactivity and obesity Smoking Cigarette Smoking The facts are clear, cigarette smoking will shorten your life. Smoking can cause many illnesses along the way. As a healthcare provider, we recommend that you stop smoking. Assistance with quitting is available by contacting 3-873-RRZX-NOW. This is a free resource providing counseling, support, and referral. Or you may contact your personal physician. National Suicide Prevention Lifeline: The National Suicide Prevention Lifeline is a national network of local crisis centers that provides free and confidential emotional support to people in suicidal crisis or emotional distress 24 hours a day, 7 days a week. Don't Wait! Stop a Heart Attack Before it Starts What is a heart attack? A heart attack is damage or to a part of the heart from severely decreased or lack of blood flow to the heart. Over time, arteries can become narrow from the buildup of fat and cholesterol, which is called plaque. The plaque can rupture causing a blood clot to form. When the blood clot forms, the artery can become severely narrowed or completely blocked, causing a heart attack. Heart attack is the leading cause of in the [place]. 85% of muscle damage occurs within the first 2 hours. Delay in the recognition of heart attack symptoms increases the chances of . Know the early symptoms of a heart attack: Nausea Feeling of fullness in chest Jaw Pain Pain that travels down one or both arms Fatigue/being tired Anxiety Back Pain Chest pressure, squeezing, or discomfort Shortness of breath Sweating, or a cold sweat Feeling of impending doom There are unusual signs of a heart attack, too! Women, the elderly, and diabetics may present with atypical symptoms: Fainting/dizziness Weakness Confusion Risk Factors for a Heart Attack Some heart disease risk factors, such as age and family history, cannot be changed. Others, like smoking and lack of exercise, can be changed. Smoking High Cholesterol High Blood Pressure Family History Obesity Age Gender (Males are at higher risk) Lack of Exercise Diabetes Diet Stress Excessive Alcohol Intake If you or someone you know is experiencing the signs and symptoms of a heart attack, DON???T DELAY. Call immediately and seek help. If someone collapses, perform CPR! Do not attempt to drive if you are having symptoms of heart attack. Hands-Only CPR Why Hands-Only CPR? Hands-Only CPR has been shown to be as effective as conventional CPR for cardiac arrests that occur outside of a hospital. Survival depends on immediately receiving CPR from someone nearby. How do you perform Hands-Only CPR? There are two easy steps: Call if you see a teen or adult collapse Push hard and fast in the center of the chest at a beat of 100 beats per minute. Save a life! 4 WAYS TO GET AHEAD OF SEPSIS SEPSIS is a MEDICAL EMERGENCY. Time matters! Infections put you and your family at risk for a life-threatening condition called sepsis. Sepsis is the body's extreme response to an infection. It is life-threatening, and without timely treatment, sepsis can rapidly lead to tissue damage, organ failure, and . Sepsis happens when an infection you already have-in your skin, lungs, urinary tract or somewhere else-triggers a chain reaction throughout your body. 1 PREVENT INFECTIONS Take good care of chronic conditions. Talk to your doctor about getting the recommended vaccines. 2 PRACTICE GOOD HYGIENE Wash your hands frequently. Keep cuts or open sores clean and covered until they are healed. 3 KNOW THE SYMPTOMS Confusion or disorientation Shortness of breath High heart rate Fever, shivering, or feeling very cold Extreme pain or discomfort Clammy or sweaty skin 4 ACT FAST Get medical care IMMEDIATELY if you suspect sepsis or if you have an infection that is not getting better or is getting worse. To learn more about sepsis and how to prevent infections, visit www.cdc.gov/sepsis. Test Results Laboratory or Other Results This Visit (last charted value for your 04/28/2019 visit) No Laboratory or Other Results This Visit Patient Name:MOISE PANDEY I have received this information and was given the opportunity to ask questions. Patient/Ortho Nurse Name: Patient/Ortho Nurse Signature: Relationship to Patient: Clinician/Hospital Ortho Nurse Signature: Date: documented in this encounter Plan of Treatment Not on file documented as of this encounter Visit Diagnoses Not on filedocumented in this encounter Care Teams Forensic Manager Relationship Specialty Start Date End Date Deejay, Provider Not In The System, [place] [address] PCP - General 04/16/23 documented as of this encounter
--- OUTSIDE RECORDS SUMMARY | 2024-10-08 10:01 | XMS_ITS | Clinical Summary ---
Author Organization [employer] ([place], [place], [place], [place]) Address [address] [place] [address] Care Team Providers Care Central Stores Attendant Name Role Phone [facility], Provider [...] Date Dereje rded Speak language other than Croatian at home Not on file 04/12/2023 Want [...] Orientation Not on file Plan of Treatment Health Maintenance Due Date Last Done Comments CT Colonography 1950 Colonoscopy 1950 Colorectal Cancer Screening 1950 DXA SCAN 1950 FOBT/FIT 1950 Fit-DNA (Cologuard) 1950 Sigmoidoscopy 1950 Depression Screening (12+) 1963 Tobacco Cessation Counseling and Screening (12+) 1963 Hepatitis C Screening 09/26/1969 DTAP/TDAP/TD VACCINES (1 - Tdap) 09/26/1970 Breast Cancer Screening 1991 Shingles Vaccine (Zoster) (1 of 2) 09/26/2001 Pneumococcal 50+ years (2 of 2 - PCV) 02/15/2016 02/14/2015 COVID-19 VACCINE (2023-2 5 season) 2023 02/09/2023, 01/25/2022, 07/18/2021, Additional history exists Falls Risk Screening 04/02/2024 Influenza Vaccine (#1) 2024 , 01/25/2022, 05/31/2021, Additional history exists Respiratory Syncytial Virus (RSV) Adult or (1 - 1-dose 75+ series) 09/26/2026 Care Teams Central Stores Attendant Relationship Specialty Start Date End Date [facility], Provider Not In The System, [place] [address] PCP - General 04/16/23
--- OUTSIDE RECORDS SUMMARY | 2024-10-08 10:01 | XMS_ITS | Encounter Summary ---
Author Organization [employer] ([place], [place], [place], [place]) Address [address] [place] [address] Care Team Providers Care Airport Operations Specialist Name Role Phone [facility], Provider Not In The System Primary Care Provider Unavailable Encounter Details Date Type Department Care Team (Late st Contact Info) Description 04/28/2019 Transcribed Document [facility] Family Medicine [address] [place] [address] ProviderJean-Claude MD [address], [place] [id number] Social History Tobacco Use Types Packs/Day Years Used Date Smoking Tobacco: Never Assessed Comments Unknown Sex and Gender Information Value Date Recorded Sex Assigned at Not on file Legal Sex Female 5:42 PM CDT Gender Identity Not on file Sexual Orientation Not on file documented as of this encounter Miscellaneous Notes * Cerner Conversion Note - Historical ProviderMD - 04/28/2019 9:51 AM HEAD TRACK COACH [place] [id number] MOISE PANDEY :1950 Visit Time:04/28/2019 What to do next Your Diagnosis Pain in unspecified knee, Pain in unspecified knee Instructions From Your Care Team No driving or legal decision for 24 hours after anesthesia. may advance diet as tolerated. May take Moran 10-325mg 1 tablet by mouth every 4-6 hours as needed for pain. Next dose due after 1:30 this afternoon. Discharge Follow Up Instructions: light to moderate Activity per discussion with family. Cane or crutches if needed for comfort. Not necessary Activity: Discharge Activity: No strenuous activities Diet: Discharge Diet: Resume usual diet as tolerated Wound/Incision Care Instructions: Keep operative site/wound clean and dry. remove operative dressing later today or tomorrow and apply water proof band-aids Showering/Bathing Instructions: May shower with water proof band-aids in place. Alternatively wrap knee in plastic wrap to shower Follow-Up Appointments Follow Up with MADISON OSPINA MD-ORT When Within 2 to 3 days Where: [address] [facility] [address] [place] [address]- Medications What How Much When Instructions Next [...] activities are safe for you. ??? Take dqxx-meo-vslvlvc and prescription medicines only as told by [...] 06/25/2001 Document Revised: 11/02/2017 Document Reviewed: 11/02/2017 Incoming Media Interactive Patient Education ?? 2019 In[employer] Inc. Knee Arthroscopy, Care After Refer to [...] activities are safe for you. ??? Perform qrvfk-lu-murfkd exercises only as directed by your health [...] 10/06/2005 Document Revised: 08/18/2016 Document Reviewed: 03/15/2015 Incoming Media Interactive Patient Education ?? 2018 [employer]. acetaminophen and hydrocodone (a SEET a MIN oh fen and ladonna droe KOE done) Hycet, Lorcet, Moran, Verdrocet, Vicodin, Xodol, Zamicet What is the [...] may report side effects to FDA at 0-590-XSH-3697. What other drugs will affect acetaminophen and [...] affect acetaminophen and hydrocodone, including prescription and shep-agq-ffwybbk medicines, vitamins, and herbal products. Not all [...] to ensure that the information provided by [employer]. ('[employer]') is accurate, up-to-date, and complete, but no guarantee is made to that effect. Drug information contained herein may be time sensitive. [employer] information has been compiled for use by healthcare practitioners and consumers in the [place] and therefore [employer] does not warrant that uses outside of the [place] are appropriate, unless specifically indicated otherwise. [employer] drug information does not endorse drugs, diagnose patients or recommend therapy. [employer] drug information is an informational resource designed [...] effective or appropriate for any given patient. [employer] does not assume any responsibility for any aspect of healthcare administered with the aid of information [employer] provides. The information contained herein is not intended to cover all possible uses, directions, precautions, warnings, drug interactions, allergic reactions, or adverse effects. If you have questions about the drugs you are taking, check with your doctor, nurse or pharmacist. Copyright 9288-8641 [employer]. Version: 15.02. Revision Date: 02/04/2018. Emergency Awareness [...] Assistance with quitting is available by contacting 7-955-KZXJ-NOW. This is a free resource providing counseling, [...] was given the opportunity to ask questions. Patient/Compensation Agent Name: Patient/Compensation Agent Signature: Relationship to Patient: Clinician/Hospital Compensation Agent Signature: Date: documented in this encounter Plan of Treatment Not on file documented as of this encounter Visit Diagnoses Not on filedocumented in this encounter Care Teams Airport Operations Specialist Relationship Specialty Start Date End Date Leslee, Provider Not In The System, [place] [address] PCP - General 04/16/23 documented as of this encounter
== END 2024-10-07 23:59 | disposition home or self-care (01) ==
LOC: LAB.DROPOF 10-08 09:49
PROVIDERS: PCP Podiatrist; Visit Provider Podiatrist
DX: B35.1 Tinea unguium (principal)
CPT/HCPCS: 87102; 87206; 87220

== ENCOUNTER 2024-10-08 11:00 | Outpatient (CLI) | payer MEDICARE, OTHER, SELFPAY ==
--- OUTSIDE RECORDS SUMMARY | 2024-10-08 11:04 | XMS_ITS | Clinical Summary ---
Author Organization [facility] Address [address] [place] [address] Phone Care Team Providers Care Sweeper Operator Highways Name Role Phone Unavailable Primary Care Provider [...] this topic Insurance Prem Courtney CLEM [place] [address] MEDICARE [place] PART A AND B [employer]
--- OUTSIDE RECORDS SUMMARY | 2024-10-08 11:04 | XMS_ITS | Referral Summary ---
Author Organization [employer] ([place], [place], [place], [place]) Address [address] [place] [address] Care Team Providers Care Burning Machine Operator Name Role Phone [facility], Provider Not In The System Primary Care [...] Date Dereje rded Speak language other than Occitan at home Not on file 04/12/2023 Want [...] of Treatment Not on file Care Teams Burning Machine Operator Relationship Specialty Start Date End Date [facility], Provider Not In The System, [place] [address] PCP - General 04/16/23
--- OUTSIDE RECORDS SUMMARY | 2024-10-08 11:04 | XMS_ITS | Encounter Summary ---
Author Organization [employer] ([place], [place], [place], [place]) Address [address] [place] [address] Care Team Providers Care Document Processing Specialist Name Role Phone [facility], Provider Not In The System Primary Care Provider Unavailable Encounter Details Date Type Department Care Team (Late st Contact Info) Description 04/28/2019 Transcribed Document [facility] Family Medicine [address] [place] [address] ProviderJean-Claude MD [address], [place] [id number] Social History Tobacco Use Types Packs/Day Years Used Date Smoking Tobacco: Never Assessed Comments Unknown Sex and Gender Information Value Date Recorded Sex Assigned at Not on file Legal Sex Female 5:42 PM CDT Gender Identity Not on file Sexual Orientation Not on file documented as of this encounter Miscellaneous Notes * Cerner Conversion Note - Historical ProviderMD - 04/28/2019 8:05 AM 2ND GRADE TEACHER [facility] Main OR PostOp Summary Primary Physician: MADISON OSPINA MD-ORT Finalized Date/Time: 04/28/19 10:18:29 Pt. Name: MOISE ATKINSON/Sex: 1950 Female Med Rec #: [id number] Physician: MADISON OSPINA MD-ORT Financial #: [id number] Pt. Type: O Room/Bed: Admit/Disch: 04/28/19 05:30:00 - Institution: [facility] Main OR PostOp Case Times Entry 1 In PACU II 04/28/19 09:36:00 Ready for PACU II 04/28/19 10:15:00 Discharge Discharge from PACU 04/28/19 10:15:00 II Last Modified By: Shanel Conrad RN 04/28/19 10:18:24 Finalized By: Shanel Conrad, RN Document Signatures Signed By: Shanel Conrad RN 04/28/19 10:18 Electronically signed by May [facility] Conversion Infantry Officer Cerner at 07/23/2022 4:27 PM CDT documented in this encounter Plan of Treatment Not on file documented as of this encounter Visit Diagnoses Not on filedocumented in this encounter Care Teams Document Processing Specialist Relationship Specialty Start Date End Date [facility], Provider Not In The System, [place] [address] PCP - General 04/16/23 documented as of this encounter
--- OUTSIDE RECORDS SUMMARY | 2024-10-08 11:04 | XMS_ITS | Encounter Summary ---
Author Organization [facility] Address [address] [place] [address] Care Team Providers Care Residential Real Estate Sales Manager Name Role Phone Timothy Granda DO Primary Care Provider [phone] Sadia Campo CIRCUIT BOARD ASSEMBLER Unavailable Unavailable Encounter Details Date Type Department Care Team (Late st Contact Info) Description 07/24/2023 Lab Requisition [facility] [address] [place] [address] Miky Coleman MD [address] [place] [address] Encounter for general adult medical [...] place to sleep or slept in a assisted (including now)? Patient refused 07/23/2023 CAGE ASSESSMENT [...] drink first t mini in the morning (EYE-BUSINESS DIVISION CHAIR) to steady your nerves or to get [...] at day 1 07/25/2023 12:01 AM EDT [facility] Swab (Nares and Renata Rectal) 07/23/2023 9:00 AM EDT 07/24/2023 4:19 AM EDT us Miky Coleman MD LAB MICROBIOLOGY - GEN ERAL ORDERABLES Final Result [facility] [address] [place] [address] documented in this encounter Visit Diagnoses Diagnosis [...] documented as of this encounter Care Teams Residential Real Estate Sales Manager Relationship Specialty Start Date End Date Timothy Granda DO [address] [place] [address] PCP - General 05/25/23 Sadia Campo, [place] [address] Iron Installer Tobacco Conditioner 08/03/22 06/21/24 documented as of this encounter
--- OUTSIDE RECORDS SUMMARY | 2024-10-08 11:04 | XMS_ITS ---
Author Organization [facility] Care Team Providers Care Hooking Machine Operator Name Role Phone Chandra Leahy Unavailable Unavailable Allergies and adverse reactions Code CodeSystem Substance Reaction Severity StartDate Concern Status 880555935 SNOMED CT Quinolones Unknown 09/04/2022 active Compazine Unknown 09/04/2022 active 2551 RXNORM Ciprofloxacin Unknown 09/04/2022 active 01792 RXNORM Azithromycin Unknown 09/04/2022 active Care Team Name Role Address Phone Organization Dates Chandra Leahy PCP [address] [place] [address], [address], [place] (Office): : [facility] 09/04/2022 - 09/06/2022 Immunizations Immunization Status Vaccine Details Vaccine Code CodeSystem Lang e Notes TB 2 Step Mantoux Skin Test completed tuberculin skin test; unspecified formulation lotNumber: [id number] expiry: 12/02/2023 Given 0.1 ml Left Forearm [...] AND SUBACUTE HEPATIC FAILURE WITHOUT COMA 09/04/[address] active 2 ACUTE KIDNEY FAILURE, UNSPECIFIED 09/04/[address] active 3 ACUTE RESPIRATORY FAILURE WITH HYPOXIA 09/04/[address] active 4 ANURIA AND OLIGURIA 09/04/[address] active 5 COLOSTOMY STATUS 09/04/[address] active 6 CONSTIPATION, UNSPECIFIED 09/04/[address] active 7 DEPRESSION, UNSPECIFIED 09/04/[address] active 8 DISORDER OF VEIN, UNSPECIFIED 09/04/[address] active 9 DYSPHAGIA, UNSPECIFIED 09/04/[address] active 10 ESSENTIAL (PRIMARY) HYPERTENSION 09/04/[address] active 11 GENERALIZED EDEMA 09/04/[address] active 12 HYPERLIPIDEMIA, UNSPECIFIED 09/04/[address] active 13 [address]YPOTHYROIDISM, UNSPECIFIED 09/04/[address] active 14 INSOMNIA, UNSPECIFIED 09/04/[address] active 15 IRRITABLE BOWEL SYNDROME WITH DIARRHEA 09/04/[address] active 16 MUSCLE WEAKNESS (GENERALIZED) 09/04/[address] active 17 OTHER ACIDOSIS 09/04/[address] act sherman 18 OTHER ASCITES 09/04/[address] act sherman 19 OTHER SPECIFIED DISORDERS INVOLVING THE IMMUNE MECHANISM, NOT ELSEWHERE CLASSIFIED 09/04/[address] active 20 PERITONEAL ABSCESS 09/04/[address] active 21 PERSONAL HISTORY OF OTHER INFECTIOUS AND PARASITIC DISEASES 09/04/[address] active 22 PORTAL VEIN THROMBOSIS 09/04/[address] active 23 PRESENCE OF OTHER VASCULAR IMPLANTS AND GRAFTS 09/04/[address] active 24 RESPIRATORY DISORDERS IN DISEASES CLASSIFIED ELSEWHERE 09/04/[address] active 25 UNSPECIFIED VIRAL HEPATITIS C WITHOUT HEPATIC COMA 09/04/[address] active 26 VOLVULUS 09/04/[address] active Reason for Referral No Reasons for Referral Entered Social History Social History Observation Description Start Date End Date Code Code System Current Smoking Status Tobacco smoking consumption unknown 531931494 SNOMED CT Sex Assigned At Female 1950 [address]00-1 [facility] Gender Identity Female [id number] [address] Vital Signs Code Code System Vitals Name Values and Units Timing Information 63713-6 [facility] Pain Level Value=2.0 09/06/2022 18796-2 [facility] O2 % BldC Oximetry Value=94.0 Units= % 09/04/2022 9279-1 [facility] Respiratory Rate Value=20.0 Units=/m in 09/04/2022 8462-4 [facility] Blood Pressure-Diastolic Value=63 Un its=mmHg 09/04/2022 8480-6 [facility] Blood Pressure-Systolic Zftvs=383 Un its=mmHg 09/04/2022 8310-5 [facility] Body Temperature Value=98.4 Units= F 09/04/2022 8867-4 [facility] Heart rate Value=95.0 Units=/min 07/2022 62960-1 [facility] Weight Seanv=493.6 Units=Lbs 07/2022 8302-2 [facility] Height Value=62.0 Units=Inches 09/04/2022
--- OUTSIDE RECORDS SUMMARY | 2024-10-08 11:04 | XMS_ITS | Encounter Summary ---
Author Organization [employer] ([place], [place], [place], [place]) Address [address] [place] [address] Care Team Providers Care Edge Stainer Name Role Phone [facility], Provider Not In The System Primary Care Provider Unavailable Encounter Details Date Type Department Care Team (Late st Contact Info) Description 04/28/2019 Transcribed Document [facility] [place] [address] [place] [address] ProviderJean-Claude MD [address], [place] [address] Social History Tobacco Use Types Packs/Day Years Used Date Smoking Tobacco: Never Assessed Comments Unknown Sex and Gender Information Value Date Recorded Sex Assigned at Not on file Legal Sex Female 5:42 PM CDT Gender Identity Not on file Sexual Orientation Not on file documented as of this encounter Miscellaneous Notes * Cerner Conversion Note - Historical ProviderMD - 04/28/2019 8:05 AM OUTREACH REP [facility] Main OR PACU Summary Primary Physician: MADISON OSPINA MD-ORShantel Finalized Date/Time: 04/28/19 09:40:55 Pt. Name: MOISE ATKINSON/Sex: 1950 Female Med Rec #: [id number] Physician: MADISON OSPINA MD-ORT Financial #: [id number] Pt. Type: O Room/Bed: Admit/Disch: 04/28/19 05:30:00 - Institution: [facility] OR PACU Case Times Entry 1 In PACU I 04/28/19 08:38:00 Ready for PACU 04/28/19 09:33:00 Discharge Discharge from PACU 04/28/19 09:33:00 I Last Modified By: Eduarda Patel Rn Patient Care Bedside 04/28/19 09:40:12 [facility] Main OR PACU Case Times Audit 04/28/19 09:40:12 Editor Newspaper: SADE Modifier: SADE <+> 1 Ready for PACU Discharge <+> 1 Discharge from PACU I Finalized By: Eduarda Patel Rn Patient Care Bedside Document Signatures Signed By: Eduarda Patel Rn Patient Care Bedside 04/28/19 09:40 Electronically signed by May [facility] Conversion Digital Program Manager Cerner at 07/23/2022 4:28 PM CDT documented in this encounter Plan of Treatment Not on file documented as of this encounter Visit Diagnoses Not on filedocumented in this encounter Care Teams Edge Stainer Relationship Specialty Start Date End Date [facility], Provider Not In The System, [place] [address] PCP - General 04/16/23 documented as of this encounter
--- OUTSIDE RECORDS SUMMARY | 2024-10-08 11:04 | XMS_ITS | Encounter Summary ---
Author Organization [employer] ([place], [place], [place], [place]) Address [address] [place] [address] Care Team Providers Care Departmental Secretary Name Role Phone Sj, Provider Not In The System Primary Care Provider Unavailable Encounter Details Date Type Department Care Team (Late st Contact Info) Description 04/28/2019 Transcribed Document [facility] Family Medicine [facility] [place] [address] ProviderJean-Claude MD [address], [place] [address] Social History Tobacco Use Types Packs/Day Years Used Date Smoking Tobacco: Never Assessed Comments Unknown Sex and Gender Information Value Date Recorded Sex Assigned at Not on file Legal Sex Female 5:42 PM CDT Gender Identity Not on file Sexual Orientation Not on file documented as of this encounter Miscellaneous Notes * Cerner Conversion Note - Jean-Claude ProviderMD - 04/28/2019 9:04 AM SUPERVISOR PIPE JOINTS DATE OF PROCEDURE: 04/28/2019 SURGEON: Timothy Foster [...] to the recovery room in satisfactory condition. /[id number] MD MICHAEL Trujillo/AQ / MICHAEL / MODL /[id number] documented in this encounter Plan of Treatment Not on file documented as of this encounter Visit Diagnoses Not on filedocumented in this encounter Care Teams Departmental Secretary Relationship Specialty Start Date End Date Leslee, Provider Not In The System, [place] [address] PCP - General 04/16/23 documented as of this encounter
--- OUTSIDE RECORDS SUMMARY | 2024-10-08 11:04 | XMS_ITS | Encounter Summary ---
Author Organization [facility] Address [address] [place] [address] Care Team Providers Care Deli Associate Name Role Phone Chandra Leahy MD Primary Care Provider + [phone] Timothy Granda DO Primary Care Provider [phone] Sadia Campo MOLD CUTTING MACHINE OPERATOR Unavailable Unavailable Encounter Details Date Type Department Care Team (Late st Contact Info) Description 08/14/2022 Lab Requisition [facility] [address] [place] [address] Dilip Lloyd MD [address] [address] Encounter for general adult medical [...] drink first t mini in the morning (EYE-INDUSTRIAL DIAMOND POLISHER) to steady your nerves or to get [...] 1 Month) No 08/17/2022 8:00 PM EDT Coel Montejo RN 6. Suicidal Behavior (Lifetime) No [...] LAB MICROBIOLOGY - GENERAL ORDERABLES Final Result [facility] [address] [place] [address] documented in this encounter Visit Diagnoses Diagnosis Encounter for general adult medical examination without abnormal findings documented in this encounter Additional Health Concerns Infection Onset Date Last Indicated Resolved Time COVID-19 Rule-Out 07/22/2023 07/22/2023 07/22/2023 12:14 PM EDT C. difficile Rule-Out 07/26/2023 08/01/20232023 1:07 AM EDT Gastrointestinal Rule-Out 08/02/2023 08/01/2023 3:00 AM EDT documented as of this encounter Care Teams Deli Associate Relationship Specialty Start Date End Date Chandra Leahy MD [address] [place] [address] PCP - General 08/02/22 05/24/23 Timothy Granda DO [address] [place] [address] PCP - General 05/25/23 Sadia Campo, [place] [address] Academic Support Director Undercutter 08/03/22 06/21/24 documented as of this encounter
--- OUTSIDE RECORDS SUMMARY | 2024-10-08 11:04 | XMS_ITS | Encounter Summary ---
Author Organization [employer] ([place], [place], [place], [place]) Address [address] [place] [address] Care Team Providers Care Supervisory Geographer Name Role Phone [facility], Provider Not In The System Primary Care Provider Unavailable Encounter Details Date Type Department Care Team (Late st Contact Info) Description 04/28/2019 Transcribed Document [facility] [place] [address] ProviderJean-Claude MD [address], [place] [id number] Social History Tobacco Use Types Packs/Day Years Used Date Smoking Tobacco: Never Assessed Comments Unknown Sex and Gender Information Value Date Recorded Sex Assigned at Not on file Legal Sex Female 5:42 PM CDT Gender Identity Not on file Sexual Orientation Not on file documented as of this encounter Miscellaneous Notes * Cerner Conversion Note - Jean-Claude ProviderMD - 04/28/2019 9:47 AM DIRECTOR DISTRIBUTION Patient Education Materials Follows: General Anesthesia, Adult, [...] activities are safe for you. ??? Take bwmd-rpe-lxdpnof and prescription medicines only as told by [...] 06/25/2001 Document Revised: 11/02/2017 Document Reviewed: 11/02/2017 [employer] Interactive Patient Education ? 2019 [employer] Knee Arthroscopy, Care After Refer to [...] activities are safe for you. ??? Perform dylbh-ak-hcqkqm exercises only as directed by your health [...] 03/15/2015 Elsevier Interactive Patient Education ? 2018 [employer] documented in this encounter Plan of Treatment Not on file documented as of this encounter Visit Diagnoses Not on filedocumented in this encounter Care Teams Supervisory Geographer Relationship Specialty Start Date End Date Leslee, Provider Not In The System, [place] [address] PCP - General 04/16/23 documented as of this encounter
--- OUTSIDE RECORDS SUMMARY | 2024-10-08 11:04 | XMS_ITS | Encounter Summary ---
Author Organization [employer] [place] ([place], [place], [place], [place]) Address [address] [place] [address] Care Team Providers Care Chief Guard Name Role Phone [facility], Provider Not In The System Primary Care Provider Unavailable Encounter Details Date Type Department Care Team (Late st Contact Info) Description 04/28/2019 Transcribed Document [facility] [place] [facility] [address] ProviderJean-Claude MD [address], [place] [phone] Social History Tobacco Use Types Packs/Day Years Used Date Smoking Tobacco: Never Assessed Comments Unknown Sex and Gender Information Value Date Recorded Sex Assigned at Not on file Legal Sex Female 5:42 PM CDT Gender Identity Not on file Sexual Orientation Not on file documented as of this encounter Miscellaneous Notes * Cerner Conversion Note - Historical ProviderMD - 04/28/2019 7:06 AM PERSONNEL SPECIALIST Pre Procedure Adult Entered On: 04/28/2019 7:12 EST Performed On: 04/28/2019 7:06 EST by ISAMAR MORRISON RN Height and Weight, Clinical Dosing Height Source : Stated Height Entry Format : Sharp Height, Feet : 5 ft(Converted to: 152 cm, 60 Inch) Height, Inches : 2 Inch(Converted to: 0 ft 2 Inch, 5.08 cm) Clinical Height : 157.48 cm Weight Source : Standing scale Weight Entry Format : Sharp Clinical Dosing Weight : 85 kg Weight, Pounds : 187 lb Body Surface Area (BSA) : 1.86 m2 Body Mass Index : 34.3 kg/m2 (HI) [place] Body Weight : 50 kg ISAMAR MORRISON [...] ISAMAR MORRISON RN - 04/28/2019 7:06 EST [place] Suicide Severity Rating Scale (C-SSRS) CSSRS Past [...] Obtained From : Patient Primary Language : Kinyarwanda Preferred Communication Mode : Verbal Communication Barrier [...] Scale Risk Level : 0-24 Low Risk [place] Fall Interventions : Bed in low position, [...] the text rendition version of the form. documented in this encounter Plan of Treatment Not on file documented as of this encounter Visit Diagnoses Not on filedocumented in this encounter Care Teams Chief Guard Relationship Specialty Start Date End Date Leslee, Provider Not In The System, [place] [address] PCP - General 04/16/23 documented as of this encounter
--- OUTSIDE RECORDS SUMMARY | 2024-10-08 11:04 | XMS_ITS | Encounter Summary ---
Author Organization [employer] ([place], [place], [place], [place]) Address [address] [place] [address] Care Team Providers Care Plate Drying Machine Tender Name Role Phone [facility], Provider Not In The System Primary Care Provider Unavailable Encounter Details Date Type Department Care Team (Late st Contact Info) Description 04/28/2019 Transcribed Document [facility] [place] [address] [place] [address] ProviderJean-Claude MD [address], [place] [id number] Social History Tobacco Use Types Packs/Day Years Used Date Smoking Tobacco: Never Assessed Comments Unknown Sex and Gender Information Value Date Recorded Sex Assigned at Not on file Legal Sex Female 5:42 PM CDT Gender Identity Not on file Sexual Orientation Not on file documented as of this encounter Miscellaneous Notes * Cerner Conversion Note - Historical ProviderMD - 04/28/2019 8:29 AM RAILROAD PURCHASING AGENT Pain Assessment Entered On: 04/28/2019 9:28 EST [...] on filedocumented in this encounter Care Teams Plate Drying Machine Tender Relationship Specialty Start Date End Date Sjh, Provider Not In The System, [place] [address] PCP - General 04/16/23 documented as of this encounter
--- OUTSIDE RECORDS SUMMARY | 2024-10-08 11:04 | XMS_ITS | Encounter Summary ---
Author Organization [employer] ([place], [place], [place], [place]) Address [address] [place] [address] Care Team Providers Care Residential Air Sealing Technician Name Role Phone [facility], Provider Not In The System Primary Care Provider Unavailable Encounter Details Date Type Department Care Team (Late st Contact Info) Description 04/28/2019 Transcribed Document [facility] [place] [address] [place] [address] ProviderJean-Claude MD [address], [place] [id number] Social History Tobacco Use Types Packs/Day Years Used Date Smoking Tobacco: Never Assessed Comments Unknown Sex and Gender Information Value Date Recorded Sex Assigned at Not on file Legal Sex Female 5:42 PM CDT Gender Identity Not on file Sexual Orientation Not on file documented as of this encounter Miscellaneous Notes * Cerner Conversion Note - Historical ProviderMD - 04/28/2019 9:51 AM 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 may advance diet as tolerated. May take Dorothy 10-325mg 1 tablet by mouth every 4-6 [...] Within 2 to 3 days Where: [address] [facility] [address] [place] [address]- Medications What How Much When Instructions Next [...] activities are safe for you. ??? Take vdcf-was-bajwgwq and prescription medicines only as told by [...] 06/25/2001 Document Revised: 11/02/2017 Document Reviewed: 11/02/2017 [employer] Interactive Patient Education ?? 2019 [employer] Inc. Knee Arthroscopy, Care After Refer to [...] activities are safe for you. ??? Perform qdzbu-ft-mlnrmv exercises only as directed by your health [...] 10/06/2005 Document Revised: 08/18/2016 Document Reviewed: 03/15/2015 [employer] Interactive Patient Education ?? 2018 [employer]. acetaminophen and hydrocodone (a SEET a MIN oh fen and ladonna droe KOE done) Hycet, Lorcet, Dorothy, Verdrocet, Vicodin, Xodol, Zamicet What is the [...] may report side effects to FDA at 3-098-XHJ-2395. What other drugs will affect acetaminophen and [...] affect acetaminophen and hydrocodone, including prescription and utfa-ulx-xdfmfjh medicines, vitamins, and herbal products. Not all [...] to ensure that the information provided by [employer]. ('Mult[employer]') is accurate, up-to-date, and complete, but no guarantee is made to that effect. Drug information contained herein may be time sensitive. [employer] information has been compiled for use by healthcare practitioners and consumers in the [place] and therefore [employer] does not warrant that uses outside of the [place] are appropriate, unless specifically indicated otherwise. [employer] drug information does not endorse drugs, diagnose patients or recommend therapy. [employer] drug information is an informational resource designed [...] effective or appropriate for any given patient. [employer] does not assume any responsibility for any aspect of healthcare administered with the aid of information [employer] provides. The information contained herein is not intended to cover all possible uses, directions, precautions, warnings, drug interactions, allergic reactions, or adverse effects. If you have questions about the drugs you are taking, check with your doctor, nurse or pharmacist. Copyright 3182-9113 [employer]. Version: 15.02. Revision Date: 02/04/2018. Emergency Awareness [...] Assistance with quitting is available by contacting 1-315-SHJT-NOW. This is a free resource providing counseling, [...] was given the opportunity to ask questions. Patient/Client Solutions Specialist Name: Patient/Client Solutions Specialist Signature: Relationship to Patient: Clinician/Hospital Client Solutions Specialist Signature: Date: documented in this encounter Plan of Treatment Not on file documented as of this encounter Visit Diagnoses Not on filedocumented in this encounter Care Teams Residential Air Sealing Technician Relationship Specialty Start Date End Date Leslee, Provider Not In The System, [place] [address] PCP - General 04/16/23 documented as of this encounter
--- OUTSIDE RECORDS SUMMARY | 2024-10-08 11:04 | XMS_ITS | Clinical Summary ---
Author Organization Healthcare Address [address] [place] [address] Care Team Providers Care Web Software Engineer Name Role Phone Timothy Granda DO Primary Care Provider [phone] Allergies Active Allergy Reactions Criticality Noted Date [...] preservative free 02/14/2015 Influenza, trivalent, adjuvanted 12/22/2019 Digly COVID-19 Vaccine (Blue Cap) 18+ 06/10/19 Moderna COVID-19 Vaccine (Re d Cap) 12+ years 07/18/2021,01/27/2021 Moderna COVID-19 Vaccine Bivalent 6months+ 01/25 PPD Skin Test (TB Skin Test) 09/04/2022 Inspherion Covid-19 Vaccine 12y+ , Mahesh Protein, PF, [...] place to sleep or slept in a fpc (including now)? Patient refused 07/23/2023 CAGE ASSESSMENT [...] drink first t mini in the morning (EYE-ATOMIZER ASSEMBLER) to steady your nerves or to get [...] 02/14/2015 UKY-Medicare Annual Wellness (AWV) 03/13/2023 03/13/2022 [id number] Vaccine ( season) 2023 02/09/2023, 01/25/2022, 07/18/2021, [...] Antigen Negative Negative 08/02/2023 7:49 PM EDT [facility] Hepatitis A Antibody IgM Negative Negative 08/02/2023 7:49 PM EDT [facility] Hepatitis B Core Antibody IgM Negative Negative 08/02/2023 7:49 PM EDT [facility] Blood Venous blood specimen / Unknown Venipuncture / Unknown 08/02/2023 2:56 PM EDT 08/02/2023 3:22 PM EDT Narrative [facility] - 08/02/2023 7:49 PM EDT Hepatitis [...] ORDERABLES Final R esult Performing Organization Address City/State/[facility] Co de Phone Number [facility] [address] [place] [address] * Flexible Sigmoidoscopy (02/21/2023 10:25 AM EST) [...] Misti Page MD Adam Rooks, MD Proceduralist resident programs assistant Adama Montes CRNA CRNA Harris, Kristi A, RN Endo Nurse Butch Little MD Fellow Tete Whitmore Endo Web Development Instructor Preprocedure A history and physical has been [...] of bowel preparation was evaluated using the [place] Bowel Preparation Scale with scores of: left [...] of bowel preparation was evaluated using the [place] Bowel Preparation Scale with scores of: right [...] Most Recently Relevant to Health Maintenance Insurance [facility] MEDIC[facility] Member Subscriber Plan / Payer (Ef fective 2013-Present) Name:Farrah Atkinson Member ID:[id number] Relation to Subscriber:Self Name:Farrah Atkinson Subscriber ID:[id number] Payer ID:MEDICARE Group ID:Not on file Type:Medicare Address: [place] [id number] Advance Directives * Full Code (Latest Code [...] Patient has decision-making capacity? Yes Care Teams Web Software Engineer Relationship Specialty Start Date End Date Timothy Granda DO [address] [place] [address] PCP - General 05/25/23
--- OUTSIDE RECORDS SUMMARY | 2024-10-08 11:04 | XMS_ITS | Clinical Summary ---
Author Organization [employer] ([place], [place], [place], [place]) Address [address] [place] [address] Care Team Providers Care Cilnical Scientist Name Role Phone [facility], Provider Not In The [...] Date Dereje rded Speak language other than Lao at home Not on file 04/12/2023 Want [...] - 1-dose 75+ series) 09/26/2026 Care Teams Cilnical Scientist Relationship Specialty Start Date End Date [facility], Provider Not In The System, [place] [address] PCP - General 04/16/23
--- OUTSIDE RECORDS SUMMARY | 2024-10-08 11:04 | XMS_ITS | Encounter Summary ---
Author Organization [employer] ([place], [place], [place], [place]) Address [address] [place] [address] Care Team Providers Care Landcare Officer Name Role Phone [facility], Provider Not In The System Primary Care Provider Unavailable Encounter Details Date Type Department Care Team (Late st Contact Info) Description 04/28/2019 Transcribed Document [facility] Family Medicine [address] [place] [address] ProviderJean-Claude MD [address], [place] [id number] Social History Tobacco Use Types Packs/Day Years Used Date Smoking Tobacco: Never Assessed Comments Unknown Sex and Gender Information Value Date Recorded Sex Assigned at Not on file Legal Sex Female 5:42 PM CDT Gender Identity Not on file Sexual Orientation Not on file documented as of this encounter Miscellaneous Notes * Cerner Conversion Note - Historical ProviderMD - 04/28/2019 8:05 AM PRICING ASSOCIATE ADI Main OR PreOp Summary Primary Physician: MADISON OSPINA MD-ORT Finalized Date/Time: 04/28/19 09:32:12 Pt. Name: MOISE ATKINSON/Sex: 1950 Female Med Rec #: [id number] Physician: MADISON OSPINA MD-ORT Financial #: [id number] Pt. Type: O Room/Bed: Admit/Disch: 04/28/19 05:30:00 - [place] [facility] [place] [facility] [place] PreOp Case Times Entry 1 In Preop 04/28/19 05:40:00 Ready for Holding n/a Room Patient Ready for 04/28/19 07:15:00 Surgery Patient Out of Preop 04/28/19 07:36:00 Patient Out of n/a Holding Room Last Modified By: ISAMAR MORRISON, SPENCER 04/28/19 09:32:08 ADI PreOp Case Times Audit 04/28/19 09:32:08 Senior Research Project Manager: FLOYDSF Modifier: FLOYDSF <+> 1 Patient Out of Preop Finalized By: ISAMAR MORRISON, RN Document Signatures Signed By: ISAMAR MORRISON RN 04/28/19 09:32 Electronically signed by May [facility] Conversion Insole Tack Puller Hand Cerner at 07/23/2022 4:31 PM CDT documented in this encounter Plan of Treatment Not on file documented as of this encounter Visit Diagnoses Not on filedocumented in this encounter Care Teams Landcare Officer Relationship Specialty Start Date End Date [facility], Provider Not In The System, [place] [address] PCP - General 04/16/23 documented as of this encounter
--- OUTSIDE RECORDS SUMMARY | 2024-10-08 11:04 | XMS_ITS | Encounter Summary ---
Author Organization [employer] ([place], [place], [place], [place]) Address [address] [place] [address] Care Team Providers Care Trade Analyst Name Role Phone [facility], Provider Not In The System Primary Care Provider Unavailable Encounter Details Date Type Department Care Team (Late st Contact Info) Description 04/28/2019 Transcribed Document [facility] [place] [address] [place] [address] ProviderJean-Claude MD [address] [place], [place] [id number] Social History Tobacco Use Types Packs/Day Years Used Date Smoking Tobacco: Never Assessed Comments Unknown Sex and Gender Information Value Date Recorded Sex Assigned at Not on file Legal Sex Female 5:42 PM CDT Gender Identity Not on file Sexual Orientation Not on file documented as of this encounter Miscellaneous Notes * Cerner Conversion Note - Historical ProviderMD - 04/28/2019 10:01 AM 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 may advance diet as tolerated. May take [place] 10-325mg 1 tablet by mouth every 4-6 [...] Comments Appointment has been made Where: [address] [facility] [address] [place] [address]- Medications What How Much When Instructions Next [...] activities are safe for you. ??? Take aqph-czf-kunqocn and prescription medicines only as told by [...] 06/25/2001 Document Revised: 11/02/2017 Document Reviewed: 11/02/2017 [employer] Interactive Patient Education ?? 2019 [employer] Inc. Knee Arthroscopy, Care After Refer to [...] activities are safe for you. ??? Perform vylcw-gv-ggxqot exercises only as directed by your health [...] 10/06/2005 Document Revised: 08/18/2016 Document Reviewed: 03/15/2015 [employer] Interactive Patient Education ?? 2018 [employer]. acetaminophen and hydrocodone (a SEET a MIN oh fen and ladonna droe KOE done) Hycet, Lorcet, [place], Verdrocet, Vicodin, Xodol, Zamicet What is the [...] may report side effects to FDA at 1-452-CTV-6444. What other drugs will affect acetaminophen and [...] affect acetaminophen and hydrocodone, including prescription and eogq-yfz-dlhvwsc medicines, vitamins, and herbal products. Not all [...] to ensure that the information provided by [employer]. ('[employer]') is accurate, up-to-date, and complete, but no guarantee is made to that effect. Drug information contained herein may be time sensitive. [employer] information has been compiled for use by healthcare practitioners and consumers in the [place] and therefore [employer] does not warrant that uses outside of the [place] are appropriate, unless specifically indicated otherwise. [employer] drug information does not endorse drugs, diagnose patients or recommend therapy. [employer] drug information is an informational resource designed [...] effective or appropriate for any given patient. [employer] does not assume any responsibility for any aspect of healthcare administered with the aid of information [employer] provides. The information contained herein is not intended to cover all possible uses, directions, precautions, warnings, drug interactions, allergic reactions, or adverse effects. If you have questions about the drugs you are taking, check with your doctor, nurse or pharmacist. Copyright 2442-0985 [employer]. Version: 15.02. Revision Date: 02/04/2018. Emergency Awareness [...] Assistance with quitting is available by contacting 6-084-RDWC-NOW. This is a free resource providing counseling, [...] was given the opportunity to ask questions. Patient/Solder Cream Maker Name: Patient/Solder Cream Maker Signature: Relationship to Patient: Clinician/Hospital Solder Cream Maker Signature: Date: documented in this encounter Plan of Treatment Not on file documented as of this encounter Visit Diagnoses Not on filedocumented in this encounter Care Teams Trade Analyst Relationship Specialty Start Date End Date Deejay, Provider Not In The System, [place] [address] PCP - General 04/16/23 documented as of this encounter
--- OUTSIDE RECORDS SUMMARY | 2024-10-08 11:04 | XMS_ITS | Encounter Summary ---
Author Organization [employer] ([place], [place], [place], [place]) Address [address] [place] [address] Care Team Providers Care Venetian Blind Tape Cutter Name Role Phone [facility], Provider Not In The System Primary Care Provider Unavailable Encounter Details Date Type Department Care Team (Late st Contact Info) Description 04/28/2019 Transcribed Document [facility] [place] [address] ProviderJean-Claude MD [facility] [place], [place] [id number] Social History Tobacco Use Types Packs/Day Years Used Date Smoking Tobacco: Never Assessed Comments Unknown Sex and Gender Information Value Date Recorded Sex Assigned at Not on file Legal Sex Female 5:42 PM CDT Gender Identity Not on file Sexual Orientation Not on file documented as of this encounter Miscellaneous Notes * Cerner Conversion Note - Historical ProviderMD - 04/28/2019 8:29 AM PROCESSING MGR Pain Assessment Entered On: 04/28/2019 9:06 EST [...] Patient Care Bedside - 04/28/2019 9:06 EST documented in this encounter Plan of Treatment Not on file documented as of this encounter Visit Diagnoses Not on filedocumented in this encounter Care Teams Venetian Blind Tape Cutter Relationship Specialty Start Date End Date Leslee, Provider Not In The System, [place] [address] PCP - General 04/16/23 documented as of this encounter
--- OUTSIDE RECORDS SUMMARY | 2024-10-08 11:04 | XMS_ITS | Encounter Summary ---
Author Organization [employer] ([place], [place], [place], [place]) Address [address] [place] [address] Care Team Providers Care Whipped Topping Mixer Name Role Phone [facility], Provider Not In The System Primary Care Provider Unavailable Encounter Details Date Type Department Care Team (Late st Contact Info) Description 04/28/2019 Transcribed Document [facility] [place] [facility] [place] [address] ProviderJean-Claude MD [address], [place] [id number] Social History Tobacco Use Types Packs/Day Years Used Date Smoking Tobacco: Never Assessed Comments Unknown Sex and Gender Information Value Date Recorded Sex Assigned at Not on file Legal Sex Female 5:42 PM CDT Gender Identity Not on file Sexual Orientation Not on file documented as of this encounter Miscellaneous Notes * Cerner Conversion Note - Historical ProviderMD - 04/28/2019 8:05 AM UNDER BASTER ADI Main OR IntraOp Summary Primary Physician: MADISON OSPINA MD-ORT Finalized Date/Time: 04/28/19 08:39:15 Pt. Name: FARRAH ATKINSON D.O.B./Sex: 1950 Female Med Rec #: [id number] Physician: MADISON OSPINA MD-ORT Financial #: [id number] Pt. Type: O Room/Bed: Admit/Disch: 04/28/19 05:30:00 - Institution: [facility] [place] Case Attendance Entry 1 Entry 2 Entry 3 Case Attendee MADISON OSPINA MD-ORT WICKER, KAREN KIM, ARIA WATERS RN Role Performed Surgeon/Proceduralist, CHILD AND YOUTH PROGRAM ASSISTANT/Nurse Satellite Manager Office Machine Technician, First First Time In 04/28/19 07:39:00 04/28/19 [...] [facility] IntraOp Case Attendance Audit 04/28/19 08:34:51 Manager Spa: LONGGA Modifier: LONGGA 1 <+> Time Out 1 <*> Procedure Knee Arthroscopy 2 <+> Time Out 2 <*> Procedure Knee Arthroscopy 3 <+> Time Out 3 <*> Procedure Knee Arthroscopy 4 <+> Time Out 4 <*> Procedure Knee Arthroscopy 5 <+> Time Out 5 <*> Procedure Knee Arthroscopy 04/28/19 08:07:14 Manager Spa: LONGGA Modifier: LONGGA <+> 1 Time In [...] [facility] IntraOp Case Times Audit 04/28/19 08:34:50 Manager Spa: LONGGA Modifier: LONGGA <+> 1 Out Room Time <+> 1 Stop Time 04/28/19 08:31:56 Manager Spa: LONGGA Modifier: LONGGA <+> 1 Stop Time [...] LATE, ANSWERED PATIENT'S QUESTIONS Last Modified By: ARIA MELCHOR RN 04/28/19 08:16:25 [facility] IntraOp Departure [...] IntraOp Departure from OR Audit 04/28/19 08:32:27 Manager Spa: EMBER Modifier: LONGGA 1 <*> Patient Transport [...] RN 04/28/19 08:15:47 S[facility] IntraOp General Case Pizzamaker 1 Case Information OR OR 05 SJE Case Level 1 Room Verified Yes Wound Class I - Clean Specialty SN Orthopedic Anesthesia Type General ASA Class 3 Diagnosis Preop Diagnosis PATELLAR CHONDROMALACIA RIGHT KNEE Postop Same As Preop No Postop Diagnosis DICTATED BY Mary Last Modified By: ARIA MELCHOR RN 04/28/19 08:15:39 [facility] IntraOp General Case Data Audit 04/28/19 08:15:39 Manager Spa: EMBER Modifier: LONGGA <+> 1 ASA Class [...] Entry 1 Medication/Irrigant epinephrine 30mg/30ml vial - [id number] Route of 3ML/3000ML OF NS Administration IRRIGATION [...] S[facility] IntraOp Patient Positioning Audit 04/28/19 08:17:49 Manager Spa: LONGGA Modifier: LONGGA 1 <*> Procedure Knee [...] SJE IntraOp Surgical Procedures Audit 04/28/19 08:31:50 Manager Spa: LONGGA Modifier: LONGGA 1 <*> Procedure Knee Arthroscopy 1 <+> Stop 04/28/19 08:27:35 Manager Spa: LONGGA Modifier: LONGGA 1 <*> Procedure Knee Arthroscopy 1 <*> Additional Procedure Description RIGHT KNEE ARTHROSCOPY FOR RETROPATELLAR CHONDROPLASTY AND PARTIAL MENISCECTOMY 04/28/19 08:21:54 Manager Spa: LONGGA Modifier: LONGGA 1 <*> Procedure Knee Arthroscopy 1 <*> Additional Procedure Description LEFT KNEE ARTHROSCOPY FOR RETROPATELLAR CHONDROPLASTY AND PARTIAL MENISCECTOMY S[facility] IntraOp Temp Regulation Devices Entry 1 Temp Regulation Temperature Forced Air Warming Regulation Device device Temperature 4765 Regulation Device Serial/Unit Number Temperature Upper body Regulation Site Temperature FARRAH MANE, CHILD AND YOUTH PROGRAM ASSISTANT Regulation Device Applied by Last Modified By: [...] 08:31:38 S[facility] IntraOp Tourniquet Audit 04/28/19 08:31:38 Manager Spa: EMBER Modifier: EMBER <+> 1 Stop Time Case Comments <None> Finalized By: ARIA MELCHOR, RN Document Signatures Signed By: ARIA MELCHOR RN 04/28/19 08:39 Electronically signed by May [facility] Conversion Lead Warehouse Associate Cerner at 07/23/2022 4:21 PM CDT documented in this encounter Plan of Treatment Not on file documented as of this encounter Visit Diagnoses Not on filedocumented in this encounter Care Teams Whipped Topping Mixer Relationship Specialty Start Date End Date Leslee, Provider Not In The System, [place] [address] PCP - General 04/16/23 documented as of this encounter
--- OUTSIDE RECORDS SUMMARY | 2024-10-08 11:04 | XMS_ITS ---
Author Organization [facility] Address [address] [place] [id number] Care Team Providers Care Hoop Riveter Name Role Phone Timothy Granda DO Primary Care Provider [phone] Hepatitis C Program Status:Paused (Paused) Start date:08/03/2022 Enrollment date:08/03/2022 Enrollment reason:HCV Continued Care and Services Coordination
== END 2024-10-08 23:59 | disposition home or self-care (01) ==
LOC: LAB 11:02
PROVIDERS: PCP Family Medicine; Visit Provider Podiatrist
DX: B35.1 Tinea unguium (principal)
CPT/HCPCS: 36415

== ENCOUNTER 2024-10-16 14:39 | Outpatient (CLI) | payer MEDICARE, OTHER, SELFPAY ==
--- OUTSIDE RECORDS SUMMARY | 2024-04-17 07:45 | XMS_ITS ---
Author Organization [facility] Address [address] [place], [place] Care Team Providers Care Chemical Preparer Name Role Phone Timothy Granda DO Primary Care Provider Tha Chaudhry Unavailable [phone] Jesus Rose Unavailable REASON FOR VISIT NEW PATIENT Encounters Encounter Location Date Provider Diagnosis [facility] [address] [place] [address] 04/17/2024 Jesus Rose Plan Of Treatment No Information Progress Notes * KATHERIN MonroeMaryellenOB:[birth year] (74 yo F)Acc No.[id number]:04/17/2024 Progress Notes Patient: Farrah SEAY Provider: Leelee Rose :1950 A ge:73 Y S ex:Female Date:04/17/2024 [facility] Pcp:Timothy Granda DO Subjective: * Chief Complaints: * 1 . NEW PATIENT. * Medical History: Objective: * Vitals: Assessment: Plan: * Treatment: * * Electronic signature of Reza Rose APRN on 10/16/2024 at 03:02 PM EDT Sign off status: Pending * Provider: Leelee Rose Date: 0 04/17/2024 Generated for Brisa conway/Sahra/Angela on: 0 10/16/2024 03:02 PM EDT
--- OUTSIDE RECORDS SUMMARY | 2024-05-13 09:30 | XMS_ITS ---
Author Organization [facility] Address [address] [place] [address] Care Team Providers Care Lead Caster Helper Name Role Phone Timothy Granda DO Primary Care Provider Tha Chaudhry [facility] [phone] REASON FOR VISIT NEW PATIENT Encounters Encounter Location Date Provider Diagnosis [facility] [address] [place] [address] 05/13/2024 Tha Krishnamurthy Plan Of Treatment No Information Progress Notes * Giselle ATKINSONOB:[birth year] (74 yo F)Acc No.[id number]:05/13/2024 Progress Notes Patient: Farrah SEAY Provider: Sarabjit Krishnamurthy MD :1950 A ge:73 Y S ex:Female Date:05/13/2024 [facility] Pcp:Timothy Granda DO Subjective: * Chief Complaints: * 1 . NEW PATIENT. * Medical History: Objective: * Vitals: Assessment: Plan: * Treatment: * * Electronic signature of Didier Krishnamurthy MD on 10/16/2024 at 03:02 PM EDT Sign off status: Pending * Provider: Sarabjit Krishnamurthy MD Date: 0 05/13/2024 Generated for Brisa conway/Sahra/Jujuitting on: 0 10/16/2024 03:02 PM EDT
--- OUTSIDE RECORDS SUMMARY | 2024-08-28 11:15 | XMS_ITS | Encounter Summary ---
Author Organization [facility] Address [address] [facility], [address] [place] [address] Care Team Providers Care Sales Rep Name Role Phone Unavailable Primary Care Provider Unavailabl e Reason for Referral * Imaging (Routine) - Not Required - RTA Specialty Diagnoses / Procedures Referred By Contac t Referred To Contact Radiology Diagnoses Left shoulder pain, unspecified chronicity History of total replacement of left shoulder joint Procedures MRI SHOULDER LEFT WO CONTRAST Sharon Paulino MD [address] [facility] [address] [address] Phone: tel: fax: Referral ID Status Reason Start Date Expiration Date V isits Requested Visits Authorized [id number] Not Required - RTA 08/28/2024 08/28/2025 1 1 * Imaging (Routine) - Not Required - RTA Specialty Diagnoses / Procedures Referred By Contac t Referred To Contact Radiology Diagnoses Left shoulder pain, unspecified chronicity History of total replacement of left shoulder joint Procedures CT SHOULDER LEFT WO CONTRAST Sharon Paulino MD [address] [facility] [address] [place] [address] Phone: tel: fax: Referral ID Status Reason Start Date Expiration Date V isits Requested Visits Authorized [id number] Not Required - RTA 08/28/2024 08/28/2025 1 1 Reason for Visit * Reason Comments Shoulder Pain LEFT SHOULDER Encounter Details Date Type Department Care Team (Late st Contact Info) Description 08/28/2024 11:15 AM EDT Office Visit [facility], [address] [address] Sharon Paulino MD [address] [place] [address] [address], [place] [id number] Left shoulder pain, unspecified chronicity (Primary Dx); History of total replacement of left shoulder joint Social History Tobacco Use Types Packs/Day Years Used Date Smoking Tobacco: Never Smokeless Tobacco: Never Alcohol Use Standard Drinks/Week Comments Not Currently 0 (1 standard drink = 0.6 oz pur e alcohol) Very rately drink wine. Comments Unknown Sex and Gender Information Value [...] - - Weight 52.2 kg (115 lb) 08/28/2024 11:16 AM EDT Height 154.9 cm (5' 1 ) 08/28/2024 11:16 AM EDT Body Mass Index 21.73 08/28/2024 11:16 AM EDT documented in this encounter Progress Notes * Sharon Paulino MD - 08/28/2024 1:59 PM EDT Chief Complaint Shoulder Pain (LEFT SHOULDER) History of Present Illness: Farrah Atkinson is a pleasant, 73 y.o. adult here today for follow-up of the left shoulder. Torecap she has a history of a left TSA replacement for primary osteoarthritis done by an outside orthopedic in 2001 from [place]. She has done well over the years until just recently. She was able to see Dr. Phillip and received an ultrasound evaluation of her rotator cuff. She continues to have similar symptoms. Patient denies any new injury since then. She is traveling here from [facility]. Medical History: No notes on file Review of Systems A 14 point review of systems was completed by the patient on 08/28/2024 and is available in the media section of the scanned medical record and was reviewed on 08/28/2024. The review is negative with the exception of those things mentioned in the HPI and Past Medical History Vital Signs: There were no vitals filed for this visit. General Exam: Constitutional: Patient is adequately groomed with no evidence of malnutrition DTRs: Deep tendon reflexes are intact Mental Status: The patient is oriented to time, place and person. The patient's mood and affect areappropriate. Lymphatic: The lymphatic examination bilaterally reveals all areas to be without enlargement or induration. Vascular: Examination reveals no swelling or calf tenderness. Peripheral pulses are palpable and 2+. Neurological: The patient has good coordination. There is no weakness or sensory deficit. Left Shoulder Examination: Inspection: No skin lesions, no obvious deformity, no swelling. Palpation: Tenderness over the anterior shoulder joint, Non-tender to palpate AC joint Active Range of Motion: Forward Elevation 100, Abduction 100, External Rotation 45, Internal Rotation T10 Passive Range of Motion: Forward Elevation 130, Abduction 110, External Rotation 45, Internal Rotation T10 Strength: External Rotation 4-/5, Internal Rotation 4-/5, Champagne [place] 4-/5, Supraspinatus 4-/5 Special Tests: negative Leonor's, negative Hawkin's, No Bolivar deformity. Neurovascular: Palpable radial pulse, normal sensation in the median, ulnar, radial nerve distributions Comparison Right Shoulder Examination: Inspection: No skin lesions, no deformity, no swelling. Palpation: nttp Active Range of Motion: Forward Elevation 140, Abduction 130, External Rotation 50, Internal Rotation T10 Passive Range of Motion: Same passive Strength: External Rotation 5/5, Internal Rotation 5/5, Champagne [place] 5/5, Supraspinatus 5/5 Special Tests: No Bolivar Deformity Neurovascular: Palpable radial pulse, normal sensation in the median, ulnar, radial nerve distributions Radiology: Plain radiographs of the left shoulder, comprising 3 views: AP, Scapular Y and Axillary lateral were obtained and reviewed in the office: Impression: No acute fracture or dislocation, there is a well-fixed longstem humeral component, total shoulder arthroplasty, implant appears to be Arthrex universe stem, there is a loose glenoid component with large area of glenoid bony defect Complete Ultrasound Shoulder 08/06/2024 Findings: 1. Partial-thickness incomplete (approximately 50%) superior segment tear of the subscapularis and underlying moderate tendinopathy 2. Low-grade partial articular sided tear supraspinatus tendon anterior segment overlying the bone-implant interface 3. Stigmata of TSA and biceps tenotomy/tenodesis 4. Glenohumeral joint medialization secondary to glenoid erosion Assessment : Farrah Atkinson is a pleasant 73 y.o. adult with pain related to a painful left total shoulder arthroplasty with loose glenoid and large glenoid defect Impression: Encounter Diagnoses Name Primary? Left shoulder pain, unspecified chronicity Yes History of total replacement of left shoulder joint Office Procedures: Orders Placed This Encounter Procedures CT SHOULDER LEFT WO CONTRAST Standing Status: Future Expected Date: 08/28/2024 Expiration Date: 08/28/2025 Reason for exam:: Metal Subtraction MRI SHOULDER LEFT WO CONTRAST Standing Status: Future Expected Date: 08/28/2024 Expiration Date: 08/28/2025 Surgical Procedure: Discussed removal of loose glenoid and humeral head prosthesis exchange with bone grafting vs revision to reverse shoulder arthroplasty with custom glenoid Treatment Plan: Pertinent imaging was reviewed. The etiology, natural history, and treatment options for the disorder were discussed. The roles of activity modifications, medications, cryotherapy andheat, injections, physical therapy, and surgical interventions were all described to the patient and questions were answered. We did have a in-depth discussion with the patient regarding her painful left shoulder. Patient does have evidence of glenoid loosening with the development of a large amount of glenoid bone loss at the area of her previous glenoid baseplate. We did have a long discussion about different treatment options for the patient with given her continued symptoms. She was told that it would be hard to manage her symptoms without surgical intervention. The ultrasound did confirm that she had a partial subscap tendon tear. We discussed different surgical treatments for her left shoulder. She should do well with removal of the loose glenoid and humeral head prosthesis exchange with glenoid bone grafting. Other options include revision reverse total shoulder with a custom glenoid implant given her large amount of glenoid bone loss. We did discuss the benefits of this including potential pain relief as well as the chance for feeling of the glenoid bone defect and union, we did discussed that if there is good bony rim support of the glenoid then she may not require a custom glenoid at revision. The patient is awareof both of these options. Farrah Atkinson will follow up after the CT and MRI are completed and/or as needed. She was inagreement with this plan and all questions were answered to the patient's satisfaction. She was encouraged to call with any questions. 2:00 PM 08/28/2024 Steffanie Larson PA-C Orthopaedic Sports Medicine Physician Sales And Marketing Administrator During this examination, Bev, Steffanie Larson PA-C, functioned as a scribe for Dr. Sharon Paulino. This dictation was performed with a verbal recognition program ([employer]) and it was checked for errors. It is possible that there are still dictated errors within this office note. If so, please bringany errors to my attention for an addendum. All efforts were made to ensure that this office note is accurate. I, Dr. Sharon Paulino, personally performed the services described in this documentation as described by Steffanie Larson PA-C in my presence, and it is both accurate and complete. Sharon Paulino MD, PhD 08/28/2024 documented in this encounter Plan of Treatment Scheduled Orders Name Type Priority Associated Diagnoses Orde r Schedule CT SHOULDER LEFT WO CONTRAST Imaging Routine Left shoulder pain, unspecified chronicity History of total replacement of left shoulder joint Expected: 08/28/2024, Expires: 08/28/2025 MRI SHOULDER LEFT WO CONTRAST Imaging Routine Left shoulder pain, unspecified chronicity History of total replacement of left shoulder joint Expected: 08/28/2024, Expires: 08/28/2025 documented as of this encounter Visit Diagnoses Diagnosis Left shoulder pain, unspecified chronicity- Primary History of total replacement of left shoulder joint documented in this encounter
--- OUTSIDE RECORDS SUMMARY | 2024-09-11 15:00 | XMS_ITS | Encounter Summary ---
Author [facility] Address [address] [facility], [address] [place] [address] Care Team Providers Care Liquor Blender Name Role Phone Unavailable Primary Care Provider Unavailabl e Reason for Visit * Reason Comments Shoulder Pain Encounter Details Date Type Department Care Team (Late st Contact Info) Description 09/11/2024 3:00 PM EDT Office Visit [facility], [address] [place] [address] Sharon Paulino MD [address] [place] [address] [address] [place] [address] History of total replacement of [...] the years until just recently. She was ableto see Dr. Phillip and received an ultrasound evaluation of her rotator cuff. She continues to have similar symptoms. The patient denies any new injury since then. She is traveling here from [facility]. Patient returns today with CT scan and [...] External Rotation 4-/5, Internal Rotation 4-/5, Champagne [place] 4-/5, Supraspinatus 4-/5 Special Tests: negative Leonor's, [...] External Rotation 5/5, Internal Rotation 5/5, Champagne [place] 5/5, Supraspinatus 5/5 Special Tests: No Bolivar [...] 09/11/2024 Ed Gillis DO Sports Medicine Fellow [facility] This dictation was performed with a verbal recognition program ([employer]) and it was checked for errors. It [...]
--- NOTE | 2024-10-16 15:00 | CT_ITS ---
FINAL REPORT TECHNIQUE: Axial imaging of the head was obtained without contrast. This study was performed with techniques to keep radiation doses as low as reasonably achievable, (ALARA). Individualized dose reduction techniques using automated exposure control or adjustment of mA and/or kV according to the patient's size were employed. CLINICAL HISTORY: Memory loss, head trauma Fell a few months ago COMPARISON: 07/04/2024 FINDINGS: The ventricles are normal in size. There is no evidence of hemorrhage. No masses are identified. No extra-axial fluid is seen. The sinuses are normal. There is no acute osseous abnormality. IMPRESSION: No acute intracranial abnormality. Reviewed, Interpreted and Dictated by Monty Box MD Transcribed by Manjula Taylor Authenticated and [facility]
--- OUTSIDE RECORDS SUMMARY | 2024-10-16 15:01 | XMS_ITS | Encounter Summary ---
Author Organization Healthcare Address [address] [place] [address] Care Team Providers Care Hospice Care Consultant Name Role Phone Timothy Granda DO Primary Care Provider [phone] Sadia Campo PAINT PROCESS ENGINEER Unavailable Unavailable Encounter Details Date Type Department Care Team (Late st Contact Info) Description 07/24/2023 Lab Requisition [facility] [address] [place] [address] Miky Coleman MD [address] [place] [address] Encounter for general adult medical [...] place to sleep or slept in a fci (including now)? Patient refused 07/23/2023 CAGE ASSESSMENT [...] drink first t mini in the morning (EYE-EQUIPMENT VALIDATION SPECIALIST) to steady your nerves or to [...] at day 1 07/25/2023 12:01 AM EDT [facility] Swab (Nares and Renata Rectal) 07/23/2023 9:00 AM EDT 07/24/2023 4:19 AM EDT us Miky Colemna MD LAB MICROBIOLOGY - GEN ERAL ORDERABLES Final Result [facility] [address] [place] [address] documented in this encounter Visit Diagnoses Diagnosis [...] documented as of this encounter Care Teams Hospice Care Consultant Relationship Specialty Start Date End Date Timothy Granda DO [address] [place] [address] PCP - General 05/25/23 Sadia Campo, [place] [address] Superintendent Radio Communications Metal Base Blocker 08/03/22 06/21/24 documented as of this encounter
--- OUTSIDE RECORDS SUMMARY | 2024-10-16 15:01 | XMS_ITS | Encounter Summary ---
Author Organization [facility] Address [address] [facility], [address] [place] [address] Care Team Providers Care Clinical Laboratory Science Professor Name Role Phone Unavailable Primary Care Provider Unavailabl e Reason for Visit * Reason Onset Date Comments Surgery Scheduling 10/10/2024 Encounter Details Date Type Department Care Team (Late st Contact Info) Description 10/10/2024 Telephone [facility] [address] [place], [place] [id number] Sharon Paulino MD [address] [place] [address] [address] [place] [address] Surgery Scheduling Social History Tobacco Use Types Packs/Day Years [...]
--- OUTSIDE RECORDS SUMMARY | 2024-10-16 15:01 | XMS_ITS ---
Author Organization [facility] Care Team Providers Care Theoretical Physics Teacher Name Role Phone Chandra Leahy Unavailable Unavailable Allergies and adverse reactions Code CodeSystem Substance Reaction Severity StartDate Concern Status 638213024 SNOMED CT Quinolones Unknown 09/04/2022 active Compazine Unknown 09/04/2022 active 2551 RXNORM Ciprofloxacin Unknown 09/04/2022 active 52001 RXNORM Azithromycin Unknown 09/04/2022 active Care Team Name Role Address Phone Organization Dates Chandra Leahy PCP [address] [place] [address], [address], [place] (Office): : [facility] 09/04/2022 - 09/06/2022 Immunizations Immunization Status Vaccine Details Vaccine Code CodeSystem Lang e Notes TB 2 Step Mantoux Skin Test completed tuberculin skin test; unspecified formulation lotNumber: [id number] expiry: 12/02/2023 Given 0.1 ml Left Forearm [...] AND SUBACUTE HEPATIC FAILURE WITHOUT COMA 09/04/[address] active 2 ACUTE KIDNEY FAILURE, UNSPECIFIED 09/04/[address] active 3 ACUTE RESPIRATORY FAILURE WITH HYPOXIA 09/04/[address] active 4 ANURIA AND OLIGURIA 09/04/[address] active 5 COLOSTOMY STATUS 09/04/[address] active 6 CONSTIPATION, UNSPECIFIED 09/04/[address] active 7 DEPRESSION, UNSPECIFIED 09/04/[address] active 8 DISORDER OF VEIN, UNSPECIFIED 09/04/[address] active 9 DYSPHAGIA, UNSPECIFIED 09/04/[address] active 10 ESSENTIAL (PRIMARY) HYPERTENSION 09/04/[address] active 11 GENERALIZED EDEMA 09/04/[address] active 12 HYPERLIPIDEMIA, UNSPECIFIED 09/04/[address] active 13 HYPOTHYROIDISM, UNSPECIFIED 09/04/[address] active 14 INSOMNIA, UNSPECIFIED 09/04/[address] active 15 IRRITABLE BOWEL SYNDROME WITH DIARRHEA 09/04/[address] active 16 MUSCLE WEAKNESS (GENERALIZED) 09/04/[address] active 17 OTHER ACIDOSIS 09/04/[address] act sherman 18 OTHER ASCITES 09/04/[address] act sherman 19 OTHER SPECIFIED DISORDERS INVOLVING THE IMMUNE MECHANISM, NOT ELSEWHERE CLASSIFIED 09/04/[address] active 20 PERITONEAL ABSCESS 09/04/[address] active 21 PERSONAL HISTORY OF OTHER INFECTIOUS AND PARASITIC DISEASES 09/04/[address] active 22 PORTAL VEIN THROMBOSIS 09/04/[address] active 23 PRESENCE OF OTHER VASCULAR IMPLANTS AND GRAFTS 09/04/[address] active 24 RESPIRATORY DISORDERS IN DISEASES CLASSIFIED ELSEWHERE 09/04/[address] active 25 UNSPECIFIED VIRAL HEPATITIS C WITHOUT HEPATIC COMA 09/04/[address] active 26 VOLVULUS 09/04/[address] active Reason for Referral No Reasons for Referral Entered Social History Social History Observation Description Start Date End Date Code Code System Current Smoking Status Tobacco smoking consumption unknown 074213964 SNOMED CT Sex Assigned At Female 1950 64476-9 [facility] Gender Identity Female 03911531167033 [address] Vital Signs Code Code System Vitals Name Values and Units Timing Information 33610-3 [facility] Pain Level Value=2.0 09/06/2022 17433-4 [facility] O2 % BldC Oximetry Value=94.0 Units= % 09/04/2022 9279-1 [facility] Respiratory Rate Value=20.0 Units=/m in 09/04/2022 8462-4 [facility] Blood Pressure-Diastolic Value=63 Un its=mmHg 09/04/2022 8480-6 [facility] Blood Pressure-Systolic Ytxvg=965 Un its=mmHg 09/04/2022 8310-5 [facility] Body Temperature Value=98.4 Units= F 09/04/2022 8867-4 [facility] Heart rate Value=95.0 Units=/min 07/2022 82348-2 [facility] Weight Fcuow=825.6 Units=Lbs 07/2022 8302-2 [facility] Height Value=62.0 Units=Inches 09/04/2022
--- OUTSIDE RECORDS SUMMARY | 2024-10-16 15:02 | XMS_ITS | Patient Health Record ---
Author Organization [facility] Address [address] [place] [address] Care Team Providers Care Director Of Web Marketing Name Role Phone Timothy Granda DO Primary Care Provider Tha Chaudhry Unavailable [phone] Jesus Rose Unavailable Unavailable Reason For Referral No Information Encounters Encounter Location Date Provider Diagnosis [facility] [address] [place] [address] 04/01/2024 Tha Krishnamurthy [facility] [address] [place] [address] 05/13/2024 Tha Krishnamurthy [facility] [address] [place] [address] 06/17/2024 Tha Krishnamurthy Plan Of Treatment No Information Insurance Providers Payer Name Payer Address Payer Phone Subscriber Number Group Number Insured Name Patient Relationship to Insured Coverage Start Date Coverage End Date Medicare CGS Administrators [address] [id number] Farrah Anna Self - patient is the insured
--- OUTSIDE RECORDS SUMMARY | 2024-10-16 15:02 | XMS_ITS | Clinical Summary ---
Author Organization [facility] 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); Chronic left shoulder pain 09/05/2024 Telephone [facility] [address] [place] [address] Sharon Paulino MD IMAGING 08/28/2024 11:15 AM EDT Office Visit [facility] [address] [address] Sharon Paulino MD Left shoulder pain, unspecified chronicity (Primary Dx); History of total replacement of left shoulder joint 08/06/2024 11:10 AM EDT Ancillary Procedure [facility] [address] [place], [place] [address] Left shoulder pain, unspecified chronicity; History of total replacement of left shoulder joint 08/06/2024 11:00 AM EDT Office Visit [facility] [address] [place] [address] Reji Phillip MD Partial tear of left subscapularis tendon, sequela (Primary Dx); Tendinopathy of left rotator cuff; History of total replacement of left shoulder joint 07/21/2024 Telephone [facility], [address] [address] Eamon Wagner APPT (PT NEEDS TO BE SCHEDULED FOR DR PHILLIP FOR US) from Last 3 Months Family History Medical History Relation Name Comments Cancer Mother Yanely Arcos bad arthr itis, 50 years as a [...] VASC COMPLETE (08/06/2024 12:39 PM EDT) Narrative [facility], User - 08/06/2024 12:39 PM EDT Radiology result is complete; follow up with provider / physician office for radiology results Edsunita Phillip MD [facility] US ORDERABLES F inal Result from Last 3 Months Insurance MEDICARE Member Subscriber Plan / Payer (Ef fective 2013-Present) Name:Farrah Atkinson Relation to Subscriber:Self Name:Farrah Atkinson Payer ID:Not on file Group ID:Not on file Type:Not on file Address: [address]
--- OUTSIDE RECORDS SUMMARY | 2024-10-16 15:02 | XMS_ITS ---
Author Organization [facility] Address [address] [place] [id number] Care Team Providers Care Wage And Salary Administrator Name Role Phone Timothy Granda DO Primary Care Provider Hepatitis C Program Status:Paused (Paused) Start date:08/03/2022 Enrollment date:08/03/2022 Enrollment reason:HCV Continued Care and Services Coordination
--- OUTSIDE RECORDS SUMMARY | 2024-10-16 15:03 | XMS_ITS | Encounter Summary ---
Author Organization Healthcare Address [address] [place] [address] Care Team Providers Care Pull Socket Assembler Name Role Phone Chandra Leahy MD Primary Care Provider [phone] Timothy Granda DO Primary Care Provider [phone] Sadia Campo BEATER BOSS Unavailable Unavailable Encounter Details Date Type Department Care Team (Late st Contact Info) Description 08/14/2022 Lab Requisition [facility] [address] [place] [address] Dilip Lloyd MD [address] [address] Encounter for general adult medical [...] drink first t mini in the morning (EYE-GENERAL SCRAP WORKER) to steady your nerves or to get [...] [facility] [address] [place] [address] documented in this encounter Visit Diagnoses Diagnosis Encounter for general adult medical examination without abnormal findings documented in this encounter Additional Health Concerns Infection Onset Date Last Indicated Resolved Time COVID-19 Rule-Out 07/22/2023 07/22/2023 07/22/2023 12:14 PM EDT C. difficile Rule-Out 07/26/2023 08/01/20232023 1:07 AM EDT Gastrointestinal Rule-Out 08/02/2023 08/01/2023 3:00 AM EDT documented as of this encounter Care Teams Pull Socket Assembler Relationship Specialty Start Date End Date Chandra Leahy MD [address] [place] [address] PCP - General 08/02/22 05/24/23 Timothy Granda DO [address] [place] [address] PCP - General 05/25/23 Sadia Campo, [place] [address] Medical Economics Consultant Home Health [facility] 08/03/22 06/21/24 documented as of this encounter
--- OUTSIDE RECORDS SUMMARY | 2024-10-16 15:03 | XMS_ITS | Clinical Summary ---
Author Organization [employer] ([place], [place], [place], [place]) Address [address] [place] [address] Care Team Providers Care Software Quality Assurance Specialist Name Role Phone [facility], Provider Not In The System Primary [...] Date Dereje rded Speak language other than Romanian at home Not on file 04/12/2023 Want [...] - 1-dose 75+ series) 09/26/2026 Care Teams Software Quality Assurance Specialist Relationship Specialty Start Date End Date [facility], Provider Not In The System, [place] [address] PCP - General 04/16/23
--- OUTSIDE RECORDS SUMMARY | 2024-10-16 15:03 | XMS_ITS | Encounter Summary ---
Author Organization [employer] ([place], [place], [place], [place]) Address [address] [place] [address] Care Team Providers Care Mri Ct Tech Name Role Phone [facility], Provider Not In The System Primary Care Provider Unavailable Encounter Details Date Type Department Care Team (Late st Contact Info) Description 04/28/2019 Transcribed Document [facility] Family Medicine [facility] [place] [address] ProviderJean-Claude MD [address] [place] [id number] Social History Tobacco Use Types Packs/Day Years Used Date Smoking Tobacco: Never Assessed Comments Unknown Sex and Gender Information Value Date Recorded Sex Assigned at Not on file Legal Sex Female 5:42 PM CDT Gender Identity Not on file Sexual Orientation Not on file documented as of this encounter Miscellaneous Notes * Cerner Conversion Note - Historical ProviderMD - 04/28/2019 8:05 AM FISHER TRAWL NET ADI Main OR IntraOp Summary Primary Physician: MADISON OSPINA MD-ORT Finalized Date/Time: 04/28/19 08:39:15 Pt. Name: FARRAH ATKINSON D.O.B./Sex: 1950 Female Med Rec #: [id number] Physician: MADISON OSPINA MD-ORT Financial #: [id number] Pt. Type: O Room/Bed: Admit/Disch: 04/28/19 05:30:00 - Institution: [facility] Intra Case Attendance Entry 1 Entry 2 Entry 3 Case Attendee MADISON OSPINA MD-ORT WICKER, KAREN KIM, ARIA WATERS RN Role Performed Surgeon/Proceduralist, ANIMATION ARTIST/Nurse Claims Adjudicator Museum Exhibit Technician, First First Time In 04/28/19 07:39:00 [...] [facility] IntraOp Case Attendance Audit 04/28/19 08:34:51 Sas Developer: LONGGA Modifier: LONGGA 1 <+> Time Out 1 <*> Procedure Knee Arthroscopy 2 <+> Time Out 2 <*> Procedure Knee Arthroscopy 3 <+> Time Out 3 <*> Procedure Knee Arthroscopy 4 <+> Time Out 4 <*> Procedure Knee Arthroscopy 5 <+> Time Out 5 <*> Procedure Knee Arthroscopy 04/28/19 08:07:14 Sas Developer: LONGGA Modifier: LONGGA <+> 1 Time In [...] [facility] IntraOp Case Times Audit 04/28/19 08:34:50 Sas Developer: LONGGA Modifier: LONGGA <+> 1 Out Room Time <+> 1 Stop Time 04/28/19 08:31:56 Sas Developer: LONGGA Modifier: LONGGA <+> 1 Stop Time [...] IntraOp Departure from OR Audit 04/28/19 08:32:27 Sas Developer: EMBER Modifier: LONGGA 1 <*> Patient Transport [...] RN 04/28/19 08:15:47 [facility] IntraOp General Case Black Top Spreader Machine Operator 1 Case Information OR OR 05 SJE Case Level 1 Room Verified Yes Wound Class I - Clean Specialty SN Orthopedic Anesthesia Type General ASA Class 3 Diagnosis Preop Diagnosis PATELLAR CHONDROMALACIA RIGHT KNEE Postop Same As Preop No Postop Diagnosis DICTATED BY Mary Last Modified By: ARIA MELCHOR RN 04/28/19 08:15:39 [facility] IntraOp General Case Data Audit 04/28/19 08:15:39 Sas Developer: EMBER Modifier: LONGGA <+> 1 ASA Class [...] Entry 1 Medication/Irrigant epinephrine 30mg/30ml vial - [id number] Route of 3ML/3000ML OF NS Administration IRRIGATION [...] [facility] IntraOp Patient Positioning Audit 04/28/19 08:17:49 Sas Developer: LONGGA Modifier: LONGGA 1 <*> Procedure Knee [...] S[facility] IntraOp Surgical Procedures Audit 04/28/19 08:31:50 Sas Developer: LONGGA Modifier: LONGGA 1 <*> Procedure Knee Arthroscopy 1 <+> Stop 04/28/19 08:27:35 Sas Developer: LONGGA Modifier: LONGGA 1 <*> Procedure Knee Arthroscopy 1 <*> Additional Procedure Description RIGHT KNEE ARTHROSCOPY FOR RETROPATELLAR CHONDROPLASTY AND PARTIAL MENISCECTOMY 04/28/19 08:21:54 Sas Developer: LONGGA Modifier: LONGGA 1 <*> Procedure Knee Arthroscopy 1 <*> Additional Procedure Description LEFT KNEE ARTHROSCOPY FOR RETROPATELLAR CHONDROPLASTY AND PARTIAL MENISCECTOMY S[facility] IntraOp Temp Regulation Devices Entry 1 Temp Regulation Temperature Forced Air Warming Regulation Device device Temperature 4765 Regulation Device Serial/Unit Number Temperature Upper body Regulation Site Temperature FARRAH MANE, ANIMATION ARTIST Regulation Device Applied by Last Modified By: [...] 08:31:38 [facility] IntraOp Tourniquet Audit 04/28/19 08:31:38 Sas Developer: EMBER Modifier: EMBER <+> 1 Stop Time Case Comments <None> Finalized By: ARIA MELCHOR, RN Document Signatures Signed By: ARIA MELCHOR RN 04/28/19 08:39 Electronically signed by May [facility] Conversion Storage Engineer Cerner at 07/23/2022 4:21 PM CDT documented in this encounter Plan of Treatment Not on file documented as of this encounter Visit Diagnoses Not on filedocumented in this encounter Care Teams Mri Ct Tech Relationship Specialty Start Date End Date Leslee, Provider Not In The System, [place] [address] PCP - General 04/16/23 documented as of this encounter
--- OUTSIDE RECORDS SUMMARY | 2024-10-16 15:03 | XMS_ITS | Encounter Summary ---
Author Organization [employer] ([place], [place], [place], [place]) Address [address] [place] [address] Care Team Providers Care Java Security Engineer Name Role Phone [facility], Provider Not In The System Primary Care Provider Unavailable Encounter Details Date Type Department Care Team (Late st Contact Info) Description 04/28/[address] [facility] Family Medicine [address] [place] [address] ProviderJean-Claude MD [address] [place], [place] [id number] Social History Tobacco Use Types Packs/Day Years Used Date Smoking Tobacco: Never Assessed Comments Unknown Sex and Gender Information Value Date Recorded Sex Assigned at Not on file Legal Sex Female 5:42 PM CDT Gender Identity Not on file Sexual Orientation Not on file documented as of this encounter Miscellaneous Notes * Cerner Conversion Note - Historical ProviderMD - 04/28/2019 10:01 AM SOLAR ELECTRIC/PHOTOVOLTAIC INSTALLER [place] [id number] MOISE PANDEY :1950 Visit Time:04/28/2019 What to do next Your Diagnosis Pain in unspecified knee, Pain in unspecified knee Instructions From Your Care Team No driving or legal decision for 24 hours after anesthesia. may advance diet as tolerated. May take [place] 10-325mg 1 tablet by mouth every 4-6 [...] Comments Appointment has been made Where: [address] [facility] [address] [place] [address]- Medications What How Much When Instructions Next [...] activities are safe for you. ??? Take ezeq-pyw-ahufqlj and prescription medicines only as told by [...] 06/25/2001 Document Revised: 11/02/2017 Document Reviewed: 11/02/2017 [employer] Patient Education ?? 2019 [employer] Knee Arthroscopy, Care After Refer to [...] activities are safe for you. ??? Perform gkvrj-wp-dpjlas exercises only as directed by your health [...] 10/06/2005 Document Revised: 08/18/2016 Document Reviewed: 03/15/2015 [employer] Patient Education ?? 2018 NEURONIX. acetaminophen and hydrocodone (a SEET a MIN oh fen and ladonna droe KOE done) Hycet, Lorcet, [place], Verdrocet, Vicodin, Xodol, Zamicet What is the [...] may report side effects to FDA at 0-174-FSI-0207. What other drugs will affect acetaminophen and [...] affect acetaminophen and hydrocodone, including prescription and cqwh-zik-mvapebc medicines, vitamins, and herbal products. Not all [...] to ensure that the information provided by [employer]. ('[employer]') is accurate, up-to-date, and complete, but no guarantee is made to that effect. Drug information contained herein may be time sensitive. [employer] information has been compiled for use by healthcare practitioners and consumers in the [place] and therefore [employer] does not warrant that uses outside of the [place] are appropriate, unless specifically indicated otherwise. [employer] drug information does not endorse drugs, diagnose patients or recommend therapy. [employer] drug information is an informational resource designed [...] effective or appropriate for any given patient. [employer] does not assume any responsibility for any aspect of healthcare administered with the aid of information [employer] provides. The information contained herein is not intended to cover all possible uses, directions, precautions, warnings, drug interactions, allergic reactions, or adverse effects. If you have questions about the drugs you are taking, check with your doctor, nurse or pharmacist. Copyright 2975-7679 [employer]. Version: 15.02. Revision Date: 02/04/2018. Emergency Awareness [...] Assistance with quitting is available by contacting 6-115-KKAI-NOW. This is a free resource providing counseling, [...] was given the opportunity to ask questions. Patient/Rigging Helper Name: Patient/Rigging Helper Signature: Relationship to Patient: Clinician/Hospital Rigging Helper Signature: Date: documented in this encounter Plan of Treatment Not on file documented as of this encounter Visit Diagnoses Not on filedocumented in this encounter Care Teams Java Security Engineer Relationship Specialty Start Date End Date Deejay, Provider Not In The System, [place] [address] PCP - General 04/16/23 documented as of this encounter
--- OUTSIDE RECORDS SUMMARY | 2024-10-16 15:03 | XMS_ITS | Encounter Summary ---
Author Organization [employer] ([place], [place], [place], [place]) Address [address] [place] [address] Care Team Providers Care Hospice Director Name Role Phone [facility], Provider Not In The System Primary Care Provider Unavailable Encounter Details Date Type Department Care Team (Late st Contact Info) Description 04/28/2019 Transcribed Document [facility] [place] [facility] [place] [address] ProviderJean-Claude MD [address] [place] [id number] Social History Tobacco Use Types Packs/Day Years Used Date Smoking Tobacco: Never Assessed Comments Unknown Sex and Gender Information Value Date Recorded Sex Assigned at Not on file Legal Sex Female 5:42 PM CDT Gender Identity Not on file Sexual Orientation Not on file documented as of this encounter Miscellaneous Notes * Cerner Conversion Note - Historical ProviderMD - 04/28/2019 7:06 AM PLANNING COORDINATOR Pre Procedure Adult Entered On: 04/28/2019 7:12 EST Performed On: 04/28/2019 7:06 EST by ISAMAR MORRISON RN Height and Weight, Clinical Dosing Height Source : Stated Height Entry Format : [place] Height, Feet : 5 ft(Converted to: 152 cm, 60 Inch) Height, Inches : 2 Inch(Converted to: 0 ft 2 Inch, 5.08 cm) Clinical Height : 157.48 cm Weight Source : Standing scale Weight Entry Format : [place] Clinical Dosing Weight : 85 kg Weight, Pounds : 187 lb Body Surface Area (BSA) : 1.86 m2 Body Mass Index : 34.3 kg/m2 (HI) [place] Body Weight : 50 kg ISAMAR MORRISON [...] ISAMAR MORRISON RN - 04/28/2019 7:06 EST [place] Suicide Severity Rating Scale (C-SSRS) CSSRS Past [...] Obtained From : Patient Primary Language : Cameroonian Preferred Communication Mode : Verbal Communication Barrier [...] Walks occasionally Don Mobility : Slightly limited Odn Nutrition : Excellent Don Friction and Shear [...] Scale Risk Level : 0-24 Low Risk [place] Fall Interventions : Bed in low position, [...] on filedocumented in this encounter Care Teams Hospice Director Relationship Specialty Start Date End Date Leslee, Provider Not In The System, [place] [address] PCP - General 04/16/23 documented as of this encounter
--- OUTSIDE RECORDS SUMMARY | 2024-10-16 15:03 | XMS_ITS | Encounter Summary ---
Author Organization [employer] ([place], [place], [place], [place]) Address [address] [place] [address] Care Team Providers Care Patient Support Representative Name Role Phone Sj, Provider Not In The System Primary Care Provider Unavailable Encounter Details Date Type Department Care Team (Late st Contact Info) Description 04/28/2019 Transcribed Document [facility] Family Medicine [facility] [place] [address] ProviderJean-Claude MD [address], [place] [id number] Social History Tobacco Use Types Packs/Day Years Used Date Smoking Tobacco: Never Assessed Comments Unknown Sex and Gender Information Value Date Recorded Sex Assigned at Not on file Legal Sex Female 5:42 PM CDT Gender Identity Not on file Sexual Orientation Not on file documented as of this encounter Miscellaneous Notes * Cerner Conversion Note - Jean-Claude ProviderMD - 04/28/2019 9:04 AM CLINICAL MEDICAL TRANSCRIPTIONIST DATE OF PROCEDURE: 04/28/2019 SURGEON: Timothy Foster [...] to the recovery room in satisfactory condition. /[id number] MD MICHAEL Trujillo/AQ / MICHAEL / MODL /[id number] documented in this encounter Plan of Treatment Not on file documented as of this encounter Visit Diagnoses Not on filedocumented in this encounter Care Teams Patient Support Representative Relationship Specialty Start Date End Date Leslee, Provider Not In The System, [place] [address] PCP - General 04/16/23 documented as of this encounter
--- OUTSIDE RECORDS SUMMARY | 2024-10-16 15:03 | XMS_ITS | Encounter Summary ---
Author Organization [employer] ([place], [place], [place], [place]) Address [address] [place] [address] Care Team Providers Care Cable Installer Name Role Phone [facility], Provider Not In The System Primary Care Provider Unavailable Encounter Details Date Type Department Care Team (Late st Contact Info) Description 04/28/2019 Transcribed Document [facility] [place] [facility] Family Medicine [facility] [place] [address] ProviderJean-Claude MD [facility] [place] [place], [place] [id number] Social History Tobacco Use Types Packs/Day Years Used Date Smoking Tobacco: Never Assessed Comments Unknown Sex and Gender Information Value Date Recorded Sex Assigned at Not on file Legal Sex Female 5:42 PM CDT Gender Identity Not on file Sexual Orientation Not on file documented as of this encounter Miscellaneous Notes * Cerner Conversion Note - Historical ProviderMD - 04/28/2019 8:29 AM PROCESS SUPERVISOR Pain Assessment Entered On: 04/28/2019 9:06 EST [...] on filedocumented in this encounter Care Teams Cable Installer Relationship Specialty Start Date End Date Leslee, Provider Not In The System, [place] [address] PCP - General 04/16/23 documented as of this encounter
--- OUTSIDE RECORDS SUMMARY | 2024-10-16 15:03 | XMS_ITS | Encounter Summary ---
Author Organization [employer] ([place], [place], [place], [place]) Address [address] [place] [address] Care Team Providers Care Radiology Nurse Name Role Phone [facility], Provider Not In The System Primary Care Provider Unavailable Encounter Details Date Type Department Care Team (Late st Contact Info) Description 04/28/2019 Transcribed Document [facility] [place] [facility] [address] [place] [address] ProviderJean-Claude MD [address], [place] [id number] Social History Tobacco Use Types Packs/Day Years Used Date Smoking Tobacco: Never Assessed Comments Unknown Sex and Gender Information Value Date Recorded Sex Assigned at Not on file Legal Sex Female 5:42 PM CDT Gender Identity Not on file Sexual Orientation Not on file documented as of this encounter Miscellaneous Notes * Cerner Conversion Note - Historical ProviderMD - 04/28/2019 8:05 AM TURN LASTER [facility] Main OR PostOp Summary Primary Physician: MADISON OSPINA MD-ORT Finalized Date/Time: 04/28/19 10:18:29 Pt. Name: MOISE ATKINSON/Sex: 1950 Female Med Rec #: [id number] Physician: MADISON OSPINA MD-ORT Financial #: [id number] Pt. Type: O Room/Bed: Admit/Disch: 04/28/19 05:30:00 - Institution: [facility] Main OR PostOp Case Times Entry 1 In PACU II 04/28/19 09:36:00 Ready for PACU II 04/28/19 10:15:00 Discharge Discharge from PACU 04/28/19 10:15:00 II Last Modified By: Shanel Conrad RN 04/28/19 10:18:24 Finalized By: Shanel Conrad, RN Document Signatures Signed By: Shanel Conrad RN 04/28/19 10:18 Electronically signed by May [facility] Conversion Rotor Coil Taper Cerner at 07/23/2022 4:27 PM CDT documented in this encounter Plan of Treatment Not on file documented as of this encounter Visit Diagnoses Not on filedocumented in this encounter Care Teams Radiology Nurse Relationship Specialty Start Date End Date [facility], Provider Not In The System, [place] [address] PCP - General 04/16/23 documented as of this encounter
--- OUTSIDE RECORDS SUMMARY | 2024-10-16 15:03 | XMS_ITS | Referral Summary ---
Author Organization [employer] ([place], [place], [place], [place]) Address [address] [place] [address] Care Team Providers Care Cane Weigher Helper Name Role Phone [facility], Provider Not In The System Primary Care [...] Date Dereje rded Speak language other than Prydeinig at home Not on file 04/12/2023 Want [...] of Treatment Not on file Care Teams Cane Weigher Helper Relationship Specialty Start Date End Date [facility], Provider Not In The System, [place] [address] PCP - General 04/16/23
--- OUTSIDE RECORDS SUMMARY | 2024-10-16 15:04 | XMS_ITS | Encounter Summary ---
Author Organization [employer] ([place], [place], [place], [place]) Address [address] [place] [address] Care Team Providers Care Conservation Assistant Name Role Phone [facility], Provider Not In The System Primary Care Provider Unavailable Encounter Details Date Type Department Care Team (Late st Contact Info) Description 04/28/2019 Transcribed Document [facility] Family Medicine [address] [place] [address] ProviderJean-Claude MD [address] [place], [place] [id number] Social History Tobacco Use Types Packs/Day Years Used Date Smoking Tobacco: Never Assessed Comments Unknown Sex and Gender Information Value Date Recorded Sex Assigned at Not on file Legal Sex Female 5:42 PM CDT Gender Identity Not on file Sexual Orientation Not on file documented as of this encounter Miscellaneous Notes * Cerner Conversion Note - Historical ProviderMD - 04/28/2019 8:05 AM HUMANITIES DEPARTMENT CHAIR [facility] Main OR PreOp Summary Primary Physician: MADISON OSPINA MD-ORT Finalized Date/Time: 04/28/19 09:32:12 Pt. Name: MOISE ATKINSON/Sex: 1950 Female Med Rec #: [id number] Physician: MADISON OSPINA MD-ORT Financial #: [id number] Pt. Type: O Room/Bed: Admit/Disch: 04/28/19 05:30:00 - Institution: [facility] PreOp Case Times Entry 1 In Preop 04/28/19 05:40:00 Ready for Holding n/a Room Patient Ready for 04/28/19 07:15:00 Surgery Patient Out of Preop 04/28/19 07:36:00 Patient Out of n/a Holding Room Last Modified By: ISAMAR MORRISON, SPENCER 04/28/19 09:32:08 AD[facility] PreOp Case Times Audit 04/28/19 09:32:08 Sales Administration Specialist: FLOYDSF Modifier: FLOYDSF <+> 1 Patient Out of Preop Finalized By: ISAMAR MORRISON, RN Document Signatures Signed By: ISAMAR MORRISON RN 04/28/19 09:32 Electronically signed by May [facility] Conversion Rad Technologist Cerner at 07/23/2022 4:31 PM CDT documented in this encounter Plan of Treatment Not on file documented as of this encounter Visit Diagnoses Not on filedocumented in this encounter Care Teams Conservation Assistant Relationship Specialty Start Date End Date [facility], Provider Not In The System, [place] [address] PCP - General 04/16/23 documented as of this encounter
--- OUTSIDE RECORDS SUMMARY | 2024-10-16 15:04 | XMS_ITS | Encounter Summary ---
Author Organization [employer] ([place], [place], [place], [place]) Address [address] [place] [address] Care Team Providers Care Routeman Name Role Phone [facility], Provider Not In The System Primary Care Provider Unavailable Encounter Details Date Type Department Care Team (Late st Contact Info) Description 04/28/2019 Transcribed Document [facility] Family Medicine [address] [place] [address] ProviderJean-Claude MD [address] [place] [id number] Social History Tobacco Use Types Packs/Day Years Used Date Smoking Tobacco: Never Assessed Comments Unknown Sex and Gender Information Value Date Recorded Sex Assigned at Not on file Legal Sex Female 5:42 PM CDT Gender Identity Not on file Sexual Orientation Not on file documented as of this encounter Miscellaneous Notes * Cerner Conversion Note - Historical ProviderMD - 04/28/2019 9:51 AM SYSTEM CONFIGURATION SPECIALIST [place] [id number] MOISE PANDEY :1950 Visit Time:04/28/2019 What to do next Your Diagnosis Pain in unspecified knee, Pain in unspecified knee Instructions From Your Care Team No driving or legal decision for 24 hours after anesthesia. may advance diet as tolerated. May take Boley 10-325mg 1 tablet by mouth every 4-6 [...] Within 2 to 3 days Where: [address] [facility] [place] [address] [place] [address]- Medications What How Much When Instructions Next [...] activities are safe for you. ??? Take allv-dmt-eoaehmb and prescription medicines only as told by [...] 06/25/2001 Document Revised: 11/02/2017 Document Reviewed: 11/02/2017 [employer] Interactive Patient Education ?? 2019 [employer]. Knee Arthroscopy, Care After Refer to [...] activities are safe for you. ??? Perform aubip-to-reagit exercises only as directed by your health [...] 10/06/2005 Document Revised: 08/18/2016 Document Reviewed: 03/15/2015 [employer] Interactive Patient Education ?? 2018 [employer]. acetaminophen and hydrocodone (a SEET a MIN oh fen and ladonna droe KOE done) Hycet, Lorcet, Boley, Verdrocet, Vicodin, Xodol, Zamicet What is the [...] may report side effects to FDA at 6-329-WFW-5146. What other drugs will affect acetaminophen and [...] affect acetaminophen and hydrocodone, including prescription and pvdj-kjo-ezmiymt medicines, vitamins, and herbal products. Not all [...] to ensure that the information provided by [employer]. ('[employer]') is accurate, up-to-date, and complete, but no guarantee is made to that effect. Drug information contained herein may be time sensitive. [employer] information has been compiled for use by healthcare practitioners and consumers in the [place] and therefore [employer] does not warrant that uses outside of the [place] are appropriate, unless specifically indicated otherwise. [employer] drug information does not endorse drugs, diagnose patients or recommend therapy. [employer] drug information is an informational resource designed [...] effective or appropriate for any given patient. [employer] does not assume any responsibility for any aspect of healthcare administered with the aid of information [employer] provides. The information contained herein is not intended to cover all possible uses, directions, precautions, warnings, drug interactions, allergic reactions, or adverse effects. If you have questions about the drugs you are taking, check with your doctor, nurse or pharmacist. Copyright 3737-0937 [employer]. Version: 15.02. Revision Date: 02/04/2018. Emergency Awareness [...] Assistance with quitting is available by contacting 0-810-ZGJZ-NOW. This is a free resource providing counseling, [...] was given the opportunity to ask questions. Patient/Establishment Guide Name: Patient/Establishment Guide Signature: Relationship to Patient: Clinician/Hospital Establishment Guide Signature: Date: documented in this encounter Plan of Treatment Not on file documented as of this encounter Visit Diagnoses Not on filedocumented in this encounter Care Teams Routeman Relationship Specialty Start Date End Date Leslee, Provider Not In The System, [place] [address] PCP - General 04/16/23 documented as of this encounter
--- OUTSIDE RECORDS SUMMARY | 2024-10-16 15:04 | XMS_ITS | Clinical Summary ---
Author Organization [facility] Address [address] [place] [address] Care Team Providers Care Rhythmic Gymnastics Coach Name Role Phone Timothy Granda DO Primary Care Provider [phone] Allergies Active Allergy Reactions Criticality Noted Date [...] preservative free 02/14/2015 Influenza, trivalent, adjuvanted 12/22/2019 videoNEXT COVID-19 Vaccine (Blue Cap) 18+ 06/10/19 Moderna COVID-19 Vaccine (Re d Cap) 12+ years 07/18/2021,01/27/2021 Moderna COVID-19 Vaccine Bivalent 6months+ 01/25 PPD Skin Test (TB Skin Test) 09/04/2022 Qoopl Covid-19 Vaccine 12y+ , Mahesh Protein, PF, [...] place to sleep or slept in a mcc (including now)? Patient refused 07/23/2023 CAGE ASSESSMENT [...] drink first t mini in the morning (EYE-CREDIT FRONT OFFICE DEVELOPER) to steady your nerves or to get [...] Last Done Comments [facility]-Bone Density Scan 1950 [facility]-/Child/Adol SDOH Screenings 1950 [facility]- SDOH Screenings 09/26/1969 [...] 02/14/2015 [facility]-Medicare Annual Wellness (AWV) 03/13/2023 03/13/2022 ART-NHPHO-80 Vaccine ( season) 2023 02/09/2023, 01/25/2022, 07/18/2021, [...] Antigen Negative Negative 08/02/2023 7:49 PM EDT [facility] Hepatitis A Antibody IgM Negative Negative 08/02/2023 7:49 PM EDT [facility] Hepatitis B Core Antibody IgM Negative Negative 08/02/2023 7:49 PM EDT [facility] Blood Venous blood specimen / Unknown Venipuncture / Unknown 08/02/2023 2:56 PM EDT 08/02/2023 3:22 PM EDT Narrative [facility] - 08/02/2023 7:49 PM EDT Hepatitis [...] ORDERABLES Final R esult Performing Organization Address City/State/[facility] Co de Phone Number [facility] [address] [place] [address] * Flexible Sigmoidoscopy (02/21/2023 10:25 AM EST) [...] Page MD Adam Rooks, MD Proceduralist residential leasing agent Adama Montes CRNA CRNA Harris, Kristi A, RN Endo Nurse Butch Little MD Fellow Tete Whitmore Endo Rice Farmworker Preprocedure A history and physical has been [...] of bowel preparation was evaluated using the [place] Bowel Preparation Scale with scores of: left [...] of bowel preparation was evaluated using the [place] Bowel Preparation Scale with scores of: right [...] Most Recently Relevant to Health Maintenance Insurance [facility] MEDICARE Member Subscriber Plan / Payer (Ef fective 2013-Present) Name:Farrah Atkinson Member ID:[id number] Relation to Subscriber:Self Name:Farrah Atkinson Subscriber ID:[id number] Payer ID:MEDICARE Group ID:Not on file Type:Medicare Address: [place] [phone] Advance Directives * Full Code (Latest Code [...] Patient has decision-making capacity? Yes Care Teams Rhythmic Gymnastics Coach Relationship Specialty Start Date End Date Timothy Granda DO [address] [place] [id number] PCP - General 05/25/23
--- OUTSIDE RECORDS SUMMARY | 2024-10-16 15:04 | XMS_ITS | Encounter Summary ---
Author Organization [employer] ([place], [place], [place], [place]) Address [address] [place] [address] Care Team Providers Care Logging Superintendent Name Role Phone [facility], Provider Not In The System Primary Care Provider Unavailable Encounter Details Date Type Department Care Team (Late st Contact Info) Description 04/28/2019 Transcribed Document [facility] Family Medicine [address] [place] [address] ProviderJean-Claude MD [address], [place] [phone] Social History Tobacco Use Types Packs/Day Years Used Date Smoking Tobacco: Never Assessed Comments Unknown Sex and Gender Information Value Date Recorded Sex Assigned at Not on file Legal Sex Female 5:42 PM CDT Gender Identity Not on file Sexual Orientation Not on file documented as of this encounter Miscellaneous Notes * Cerner Conversion Note - Historical ProviderMD - 04/28/2019 8:05 AM DOMESTIC TRAVEL CONSULTANT [facility] Main OR PACU Summary Primary Physician: MADISON OSPINA MD-ORShantel Finalized Date/Time: 04/28/19 09:40:55 Pt. Name: MOISE ATKINSON/Sex: 1950 Female Med Rec #: [id number] Physician: MADISON OSPINA MD-ORT Financial #: [id number] Pt. Type: O Room/Bed: Admit/Disch: 04/28/19 05:30:00 - Institution: [facility] OR PACU Case Times Entry 1 In PACU I 04/28/19 08:38:00 Ready for PACU 04/28/19 09:33:00 Discharge Discharge from PACU 04/28/19 09:33:00 I Last Modified By: Eduarda Patel Rn Patient Care Bedside 04/28/19 09:40:12 [facility] Main OR PACU Case Times Audit 04/28/19 09:40:12 Accounting Director: SADE Modifier: SADE <+> 1 Ready for PACU Discharge <+> 1 Discharge from PACU I Finalized By: Eduarda Patel Rn Patient Care Bedside Document Signatures Signed By: Eduarda Patel Rn Patient Care Bedside 04/28/19 09:40 Electronically signed by May [facility] Conversion Food Service Worker Hospital Cerner at 07/23/2022 4:28 PM CDT documented in this encounter Plan of Treatment Not on file documented as of this encounter Visit Diagnoses Not on filedocumented in this encounter Care Teams Logging Superintendent Relationship Specialty Start Date End Date [facility], Provider Not In The System, [place] [address] PCP - General 04/16/23 documented as of this encounter
--- OUTSIDE RECORDS SUMMARY | 2024-10-16 15:04 | XMS_ITS | Encounter Summary ---
Author Organization [facility] Address [address], [address] [place] [address] Care Team Providers Care Quality Assurance Lab Technician Name Role Phone Unavailable Primary Care Provider Unavailabl e Reason for Visit * Reason Onset Date Comments IMAGING 09/05/2024 Encounter Details Date Type Department Care Team (Late st Contact Info) Description 09/05/2024 Telephone [facility] [address] [place] [address] Sharon Paulino MD [address] [place] [address] [address] [place] [address] IMAGING Social History Tobacco Use Types Packs/Day [...]
--- OUTSIDE RECORDS SUMMARY | 2024-10-16 15:04 | XMS_ITS | Encounter Summary ---
Author Organization [employer] ([place], [place], [place], [place]) Address [address] [place] [address] Care Team Providers Care Enrollment Management Director Name Role Phone [facility], Provider Not In The System Primary Care Provider Unavailable Encounter Details Date Type Department Care Team (Late st Contact Info) Description 04/28/2019 Transcribed Document [facility] [place] Family Medicine [address] [place] [address] ProviderJean-Claude MD [address] [place], [place] [phone] Social History Tobacco Use Types Packs/Day Years Used Date Smoking Tobacco: Never Assessed Comments Unknown Sex and Gender Information Value Date Recorded Sex Assigned at Not on file Legal Sex Female 5:42 PM CDT Gender Identity Not on file Sexual Orientation Not on file documented as of this encounter Miscellaneous Notes * Cerner Conversion Note - Historical ProviderMD - 04/28/2019 8:29 AM FARM MANAGEMENT TEACHER Pain Assessment Entered On: 04/28/2019 9:28 EST [...] on filedocumented in this encounter Care Teams Enrollment Management Director Relationship Specialty Start Date End Date Sjh, Provider Not In The System, [place] [address] PCP - General 04/16/23 documented as of this encounter
--- OUTSIDE RECORDS SUMMARY | 2024-10-16 15:04 | XMS_ITS | Clinical Summary ---
Author Organization [facility] Address [address] [place] [address] Phone Care Team Providers Care Operations Trainer Name Role Phone Unavailable Primary Care Provider [...] CAUSE DROWSINESS 180 Tablet 5 025 Discontinued ARIPiprazole (ABILIFY) 2 mg Oral Tablet TAKE 1 TABLET BY MOUTH ONCE DAILY 30 Tablet 5 025 Discontinued Active Problems No [...] Colon Cancer Screening 08/08/2032 Colonoscopy 08/08/2032 08/08/2022, 050 10/2022, 12/07/2017 Hepatitis B Vaccine Aged Out No longe r eligible based on patient's age to complete this topic Meningococcal B Vaccine Aged Out No l onger eligible based on patient's age to complete this topic Insurance Prem Court[place] [id number] MEDICARE [place] PART A AND B [employer]
--- OUTSIDE RECORDS SUMMARY | 2024-10-16 15:04 | XMS_ITS | Encounter Summary ---
Author Organization [employer] ([place], [place], [place], [place]) Address [address] [place] [address] Care Team Providers Care Reconnaissance Man Name Role Phone [facility], Provider Not In The System Primary Care Provider Unavailable Encounter Details Date Type Department Care Team (Late st Contact Info) Description 04/28/2019 Transcribed Document [facility] [place] [facility] [place] [address] ProviderJean-Claude MD [address], [place] [id number] Social History Tobacco Use Types Packs/Day Years Used Date Smoking Tobacco: Never Assessed Comments Unknown Sex and Gender Information Value Date Recorded Sex Assigned at Not on file Legal Sex Female 5:42 PM CDT Gender Identity Not on file Sexual Orientation Not on file documented as of this encounter Miscellaneous Notes * Cerner Conversion Note - Jean-Claude ProviderMD - 04/28/2019 9:47 AM ELECTRONIC WIRER Patient Education Materials Follows: General Anesthesia, Adult, [...] activities are safe for you. ??? Take sldp-kfj-zgfmzmq and prescription medicines only as told by [...] 06/25/2001 Document Revised: 11/02/2017 Document Reviewed: 11/02/2017 [employer] Interactive Patient Education ? 2019 [employer] Knee Arthroscopy, Care After Refer to [...] activities are safe for you. ??? Perform kuhpt-ep-losegw exercises only as directed by your health [...] 03/15/2015 Elsevier Interactive Patient Education ? 2018 [employer] documented in this encounter Plan of Treatment Not on file documented as of this encounter Visit Diagnoses Not on filedocumented in this encounter Care Teams Reconnaissance Man Relationship Specialty Start Date End Date Leslee, Provider Not In The System, [place] [address] PCP - General 04/16/23 documented as of this encounter
[2024-10-16 15:44] LABS: Alanine Aminotransferase 26 U/L (12-78); Albumin Level 4.1 g/dl (3.5-5.0); Albumin/Globulin Ratio 1.7 (1.1-1.8); Alkaline Phosphatase 122 U/L (38-126); Anion Gap 16.1 mEq/L (5-15); Aspartate Amino Transferase 28 U/L (14-36); Bilirubin,Total 0.4 mg/dl (0.2-1.3); Blood Urea Nitrogen 19 mg/dl (7-17); Calcium 9.0 mg/dl (8.4-10.2); Carbon Dioxide 21 mmol/L (22.0-30.0); Chloride 102 mmol/L (98-107); Creatinine,Serum 1.20 mg/dl (0.52-1.04); Estimated Glomerular Filt Rate 44 ml/min (>60); GFR (African American) 53 ML/MIN (>60); Globulin 2.4 g/dL (1.3-3.2); Glucose 95 mg/dl (74-100); Potassium 4.1 mmoL/L (3.5-5.1); Sodium 135 mmol/L (136-145); Total Protein,Serum 6.5 g/dl (6.3-8.2)
== END 2024-10-16 23:59 | disposition home or self-care (01) ==
LOC: RAD 14:40
PROVIDERS: Podiatrist; PCP Family Medicine; Visit Provider Family Medicine
DX: S09.90XA Unspecified injury of head, initial encounter (principal); R41.3 Other amnesia; B35.1 Tinea unguium; W19.XXXA Unspecified fall, initial encounter
CPT/HCPCS: 36415; 70450; 80053

== ENCOUNTER 2024-10-27 15:00 | Outpatient (RCR) | payer MEDICARE, OTHER, SELFPAY | END 2024-10-27 23:59 | disposition home or self-care (01) | LOC: PT 15:00 | PROVIDERS: PCP Family Medicine; Visit Provider Orthopaedic Surgery | DX: M70.62 Trochanteric bursitis, left hip (principal) | CPT/HCPCS: 97110; 97163 ==

== ENCOUNTER 2024-11-21 10:00 | Outpatient (RCR) | payer MEDICARE, OTHER, SELFPAY | END 2024-11-21 23:59 | disposition home or self-care (01) | LOC: PT 10:00 | PROVIDERS: PCP Family Medicine; Visit Provider Orthopaedic Surgery | DX: M70.62 Trochanteric bursitis, left hip (principal) | CPT/HCPCS: 97110 ==

== ENCOUNTER 2024-11-27 23:34 | Emergency (ER) | payer MEDICARE, OTHER, SELFPAY ==
--- OUTSIDE RECORDS SUMMARY | 2024-04-17 07:45 | XMS_ITS ---
Author Organization [facility] Address [address] [place] [address] Care Team Providers Care Maintainer [employer]er [employer] Name Role Phone Timothy Granda DO Primary Care Provider Tha Chaudhry Unavailable [phone] Jesus Rose Unavailable REASON FOR VISIT NEW PATIENT Encounters Encounter Location Date Provider Diagnosis [facility] [address] [place] [address] 04/17/2024 Jesus Rose Plan Of Treatment No Information Progress Notes * KRISTACIERRA MonroeMaryellenOB:[birth year] (74 yo F)Acc No.[id number]:04/17/2024 Progress Notes Patient: Farrah SEAY Provider: Leelee Rose :1950 A ge:73 Y S ex:Female Date:04/17/2024 [facility] Pcp:Timothy Granda DO Subjective: * Chief Complaints: * 1 . NEW PATIENT. * Medical History: Objective: * Vitals: Assessment: Plan: * Treatment: * * Electronic signature of Reza Rose APRN on 11/27/2024 at 11:48 PM EDT Sign off status: Pending * Provider: Leelee Rose Date: 0 04/17/2024 Generated for Brisa conway/Sahra/Angela on: 0 11/27/2024 11:48 PM EDT
--- OUTSIDE RECORDS SUMMARY | 2024-05-13 09:30 | XMS_ITS ---
Author Organization [facility] Address [address] [place] [address] Care Team Providers Care Makeup Artistry Instructor Name Role Phone Timothy Granda DO Primary Care Provider Tha Chaudhry Unavailable [phone] REASON FOR VISIT NEW PATIENT Encounters Encounter Location Date Provider Diagnosis [facility] [address] [place] [address] 05/13/2024 Tha Krishnamurthy Plan Of Treatment No Information Progress Notes * Giselle ATKINSONOB:[birth year] (74 yo F)Acc No.[id number]:05/13/2024 Progress Notes Patient: Farrah SEAY Provider: Sarabjit Krishnamurhty MD :1950 A ge:73 Y S ex:Female Date:05/13/2024 [facility] Pcp:Timothy Granda DO Subjective: * Chief Complaints: * 1 . NEW PATIENT. * Medical History: Objective: * Vitals: Assessment: Plan: * Treatment: * * Electronic signature of Didier Krishnamurthy MD on 11/27/2024 at 11:48 PM EDT Sign off status: Pending * Provider: Sarabjit Krishnamurthy MD Date: 0 05/13/2024 Generated for Brisa conway/Sahra/eTnamsmitting on: 0 11/27/2024 11:48 PM EDT
--- OUTSIDE RECORDS SUMMARY | 2024-06-17 09:30 | XMS_ITS ---
Author Organization [facility] Address [address] [place] [address] Care Team Providers Care Rheostat Assembler Name Role Phone Timothy Granda DO Primary Care Provider Tha Chaudhry [facility] [phone] REASON FOR VISIT NEW PATIENT Encounters Encounter Location Date Provider Diagnosis [facility] [address] [place] [address] 06/17/2024 Tha Krishnamurthy Plan Of Treatment No Information Progress Notes * Giselle ATKINSONOB:[birth year] (74 yo F)Acc No.[id number]:06/17/2024 Progress Notes Patient: Farrah SEAY Provider: Sarabjit Krishnamurthy MD :1950 A ge:73 Y S ex:Female Date:06/17/2024 [facility] Pcp:Timothy Granda DO Subjective: * Chief Complaints: * 1 . NEW PATIENT. * Medical History: Objective: * Vitals: Assessment: Plan: * Treatment: * * Electronic signature of Didier Krishnamurthy MD on 11/27/2024 at 11:49 PM EDT Sign off status: Pending * Provider: Sarabjit Krishnamurthy MD Date: 06/17/2024 Generated for Brisa conway/Sahra/eTnamsmitting on: 0 11/27/2024 11:49 PM EDT
[2024-11-27 23:36] VITALS: BP 233/98; PULSE 112; RESP 16; TEMP 36.6; O2SAT 98; BMI 30.2
--- NOTE | 2024-11-27 23:36 | ED_ITS ---
Discharge Plan Disposition Patient Disposition: Home, Self-Care Prescriptions Prescriptions: No Action cholecalciferol (vitamin D3) 62.5 mcg (2,500 unit) capsule 62.5 mcg PO DAILY 90 Days Qty: 90 2RF promethazine 12.5 mg tablet 12.5 mg PO TID clonidine HCl 0.1 mg tablet 0.1 mg PO PRN amitriptyline 50 mg tablet 50 mg PO HS Qty: 30 12RF Rx Instructions: Please take 1 tablet p.o. nightly dicyclomine 10 mg capsule 10 mg PO TID PRN (Reason: abdominal pain) Qty: 90 5RF Xifaxan 550 mg tablet 550 mg PO TID Qty: 42 0RF aripiprazole 2 mg tablet 2 mg PO DAILY ondansetron 4 mg tablet,disintegrating 4 mg PO PRN ciclopirox 0.77 % gel 1 applic topical ONCE 90 Days Qty: 100 2RF Rx Instructions: Apply daily to affected toenail. Smooth with emery board weekly. amlodipine 5 mg tablet 5 mg PO HS Qty: 90 4RF fluticasone propion-salmeterol [Advair Diskus] 100-50 mcg/dose blister with device 1 inh inhalation BID Qty: 60 4RF Dulera 200-5 mcg/actuation HFA aerosol inhaler 2 puff inhalation BID Qty: 13 2RF duloxetine 60 mg capsule,delayed release(DR/EC) See Rx Instructions .ROUTE .COMPLEX Qty: 180 1RF Dose Instruction: TAKE 2 CAPSULES BY MOUTH ONCE DAILY Rx Instructions: TAKE 2 CAPSULES BY MOUTH ONCE DAILY estradiol 0.01 % (0.1 mg/gram) cream 1 appful vaginal DAILY PRN (Reason: leakage) Qty: 42.5 2RF ferrous sulfate [FeroSul] 325 mg (65 mg iron) tablet See Rx Instructions .ROUTE .COMPLEX Qty: 30 2RF Dose Instruction: TAKE 1 TABLET BY MOUTH ONCE DAILY Rx Instructions: TAKE 1 TABLET BY MOUTH ONCE DAILY ergocalciferol (vitamin D2) 1,250 mcg (50,000 unit) capsule 1,250 mcg PO WEEKLY Qty: 4 1RF benzonatate 100 mg capsule 100 mg PO TID PRN (Reason: cough) Qty: 30 1RF sulfamethoxazole-trimethoprim 400-80 mg tablet See Rx Instructions .ROUTE .COMPLEX Qty: 30 0RF Dose Instruction: TAKE 1 TABLET BY MOUTH ONCE DAILY WITH WATER Rx Instructions: TAKE 1 TABLET BY MOUTH ONCE DAILY WITH WATER acyclovir 400 mg tablet See Rx Instructions .ROUTE .COMPLEX Qty: 60 2RF Dose Instruction: TAKE 1 TABLET BY MOUTH 2 (TWO) TIMES A DAY. Rx Instructions: TAKE 1 TABLET BY MOUTH 2 (TWO) TIMES A DAY. losartan 50 mg tablet See Rx Instructions .ROUTE .COMPLEX Qty: 135 0RF Dose Instruction: TAKE 1 & 1/2 TABLETS BY MOUTH ONCE DAILY Rx Instructions: TAKE 1 & 1/2 TABLETS BY MOUTH ONCE DAILY levothyroxine 25 mcg tablet See Rx Instructions .ROUTE .COMPLEX Qty: 90 0RF Dose Instruction: TAKE 1 TABLET BY MOUTH ONCE DAILY FOR HYPOTHYROIDISM Rx Instructions: TAKE 1 TABLET BY MOUTH ONCE DAILY FOR HYPOTHYROIDISM terbinafine HCl 250 mg tablet 250 mg PO DAILY 90 Days Qty: 90 0RF atorvastatin 40 mg tablet 40 mg PO DAILY Qty: 90 3RF furosemide 40 mg tablet See Rx Instructions .ROUTE .COMPLEX Qty: 30 0RF Dose Instruction: TAKE 1 TABLET BY MOUTH DAILY NEEDED FOR SWELLING Rx Instructions: TAKE 1 TABLET BY MOUTH DAILY NEEDED FOR SWELLING tizanidine 4 mg tablet See Rx Instructions .ROUTE .COMPLEX Qty: 90 0RF Dose Instruction: TAKE 1 TABLET BY MOUTH THREE TIMES DAILY NEEDED FOR MUSCLE SPASTICITY Rx Instructions: TAKE 1 TABLET BY MOUTH THREE TIMES DAILY NEEDED FOR MUSCLE SPASTICITY oxycodone 10 mg tablet 10 mg PO Q4H MDD No> 6/day PRN (Reason: pain) Qty: 90 0RF hydromorphone 4 mg tablet 4 mg PO Q4-6H PRN (Reason: pain) Qty: 60 0RF diphenoxylate-atropine 2.5-0.025 mg tablet 1 tab PO TID 90 Days Qty: 270 3RF Referrals Follow up/Referrals: Connor Gomez MD [Primary Care Provider, Family Practice] - See instructions Activity Restrictions/Add. Instructions Additional Instructions/Restrictions: Please follow-up with your primary care provider. Please return to the emergency department if you develop any new or worsening symptoms or become concerned for your health. Clinical Impressions Clinical Impression: Hypertensive urgency Instructions Patient Instructions: DI for Diarrhea and Traveler's Diarrhea -- Adult, DI for Diarrhea and Traveler's Diarrhea -- Child, DI for Nausea -- Adult, DI for Nausea -- Child Print Language Print Language: [place] Discharge ED Provider: Manjit Barahona General Adult HPI General Chief complaint: Nausea/Vomiting/Diarrhea Stated complaint: high bp Time Seen by Provider: 11/27/24 23:36 History of Present Illness HPI narrative: 74-year-old female with history of hypertension, paroxysmal A-fib, hyperlipidemia, IBS presents for hypertension. She reports that her blood pressure normally runs around 140 systolic. She is on 2 blood pressure medications for this. They have not been changed recently. She reports that she felt some ringing in her ears which is normal for her when she gets high blood pressure. She took her home nighttime amlodipine but it did not seem to help. She denies headache but reports that she did have an episode of vertigo. She reports that she did the Jose Luis maneuver and it improved it. She does have chronic intermittent vertigo. She denies any vision changes. She denies chest pain shortness of breath abdominal pain. She did have a little bit of vomiting earlier today but is not nauseous currently. [place] any recent fever or infectious symptoms. Related Data Home Medications ?Medication ?Instructions ?Recorded ?Confirmed promethazine 12.5 mg tablet 12.5 mg PO TID 10/11/23 clonidine HCl 0.1 mg tablet 0.1 mg PO PRN 03/04/2411/24 aripiprazole 2 mg tablet 2 mg PO DAILY 05/09/2410/07 ondansetron 4 mg disintegrating 4 mg PO PRN 05/09/24 0 10/07/24 tablet Previous Rx's ?Medication ?Instructions ?Recorded cholecalciferol (vitamin D3) 62.5 62.5 mcg PO DAILY 90 days #90 caps 04/10/23 mcg (2,500 unit) capsule amlodipine 5 mg tablet 5 mg PO HS hypertension #90 tabs 12/10/23 mometasone-formoterol HFA 200 2 puff inhalation BID As thma #13 12/31/23 mcg-5 mcg/actuation aerosol grams inhaler (Dulera) fluticasone 100 mcg-salmeterol 50 1 inh inhalation BID #60 ea 01/08/24 mcg/dose blistr powdr for inhalation (Advair Diskus) duloxetine 60 mg capsule,delayed See Rx Instructions . Route 01/18/24 release .COMPLEX #180 caps estradiol 0.01% (0.1 mg/gram) 1 appful vaginal DAILY P RN leakage 02/14/24 vaginal cream #42.5 grams ferrous sulfate 325 mg (65 mg See Rx Instructions .Rou te 03/03/24 iron) tablet (FeroSul) .COMPLEX #30 tabs amitriptyline 50 mg tablet 50 mg PO HS #30 tabs dicyclomine 10 mg capsule 10 mg PO TID PRN abdominal p ain 06/26/24 #90 caps rifaximin 550 mg tablet (Xifaxan) 550 mg PO TID #42 ta bs 06/26/24 ergocalciferol (vitamin D2) 1,250 1,250 mcg PO WEEKLY #4 caps 07/07/24 mcg (50,000 unit) capsule benzonatate 100 mg capsule 100 mg PO TID PRN cough #30 caps 08/27/24 sulfamethoxazole 400 See Rx Instructions .Route 0 09/10/24 mg-trimethoprim 80 mg tablet .COMPLEX #30 tabs acyclovir 400 mg tablet See Rx Instructions .Route 0 09/25/24 .COMPLEX #60 tabs losartan 50 mg tablet See Rx Instructions .Route 0 09/25/24 .COMPLEX #135 tabs ciclopirox 0.77 % topical gel 1 applic topical ONCE to enail 10/07/24 fungus 90 days #100 grams levothyroxine 25 mcg tablet See Rx Instructions .Route 10/10/24 .COMPLEX #90 tabs atorvastatin 40 mg tablet 40 mg PO DAILY #90 tabs 09/30 10/24 terbinafine HCl 250 mg tablet 250 mg PO DAILY fungus 9 0 days #90 10/16/24 tabs furosemide 40 mg tablet See Rx Instructions .Route 0 11/21/24 .COMPLEX #30 tabs tizanidine 4 mg tablet See Rx Instructions .Route 0 11/21/24 .COMPLEX #90 ea diphenoxylate-atropine 2.5 1 tab PO TID 90 days #270 t abs 11/26/24 mg-0.025 mg tablet hydromorphone 4 mg tablet 4 mg PO Q4-6H PRN pain #60 t abs 11/26/24 oxycodone 10 mg tablet 10 mg PO Q4H PRN pain #90 ta bs 11/26/24 Allergies Allergy/AdvReac Type Severity Reaction Status Date / Time ciprofloxacin (From Cipro) Allergy Intermediate Muscle Pain Verified 10/07/24 10:08 levofloxacin (From Levaquin) AdvReac Verified 10/07/24 10:08 [facility] Disclaimer: The information contained in this section may have been updated after the patient was seen, as this information can be updated by other users. Medical History Hypertension Paroxysmal atrial fibrillation Aftercare following bilateral knee joint replacement surgery C. difficile diarrhea Colostomy in place Perforated sigmoid colon Elevated liver enzymes Ileus Abnormal electrocardiogram [ECG] [EKG] Abdominal pain TIP (acute kidney injury) Hypothyroidism IBS (irritable bowel syndrome) HLD (hyperlipidemia) HTN (hypertension), benign Hypokalemia Hypokalemia due to loss of potassium Surgical History H/O ileostomy History of total right hip replacement History of arthroscopy of left shoulder Family History Other Anemia Asthma Cancer Hyperlipidemia Social History Smoking Status: Never smoker second hand exposure: No alcohol intake: never current occupational status: retired Travel in the last 8 weeks?: None household members: spouse housing: house current occupational exposures/hazards: No caffeine: No Have you lived/traveled outside [place] in past 30 days?: No Contact w/someone who lives/traveled outside US past 30 days?: No Exposure to someone with infectious disease in past 14 days?: No Do you have a fever (greater than 100.4 F or 38 C)?: No Have you tested positive for COVID-19?: No Exposed to someone with COVID-19 in past 14 days?: No Do you have a sore throat?: No Do you have a cough?: No Do you have any weakness?: No Do you have any diarrhea?: No Are you experiencing any unusual bleeding?: No Do you have any muscle aches/pain?: No Do you have any abdominal pain?: No Are you experiencing loss of taste or smell?: No Other Medical History Have you received the Flu Vaccine for this season: No Have you received the Pneumonia Vaccine: Yes ROS Obtained: Yes All systems reviewed & no additional complaints except as documented Physical Exam General General appearance: alert and in no apparent distress Head Head exam: atraumatic and normocephalic Eye Eye exam: Present normal appearance, PERRL and EOMI ENT ENT exam: Present normal oropharynx and normal external ear exam Neck Neck exam: Present normal inspection and full ROM Chest Chest inspection: Present normal inspection and symmetric chest wall rise; Absent tenderness Respiratory Respiratory exam: Present normal lung sounds bilaterally; Absent respiratory distress Cardiovascular Cardiovascular exam: Present regular rate and normal rhythm Abdominal Exam Abdominal exam: Present soft; Absent distention, tenderness or guarding Extremities Exam Extremities exam: Present normal inspection; Absent edema or joint swelling Back Exam Back exam: Present normal inspection; Absent tenderness Neurological Exam Neurological exam: Present alert and oriented X3; Absent motor sensory deficit Psychiatric Psychiatric exam: Present normal affect and normal mood Skin Skin exam: Present warm, dry and normal color Lymphatic Lymphatic Findings: no adenopathy Medical Decision Making Medical Records Medical records reviewed: Yes I reviewed the patient's medical records. Screening: Per USPSTF and CDC recommendations, given the prevalence of disease in our region, it is our hospital?s policy to screen for HIV and viral Hepatitis for all patients aged 18 and over and those with ongoing risk factors. Beto Inquiry Pt receiving controlled substance: No Beto was queried for this patient: No Vital Signs: 11/27/24 23:36 11/27/24 23:43 11/28/24 00:00 Temperature 97.8 F Temperature Source Temporal Artery Scan Pulse Rate 101 H 68 Pulse Rate [Right Radial] 112 H Respiratory Rate 16 20 20 Blood Pressure 220/110 H 182/91 H Blood Pressure [Right Arm] 233/98 H Blood Pressure Mean 146 Blood Pressure Mean [Right Arm] 143 Blood Pressure Source Blood Pressure Source [Right Arm] Automatic Cuff Blood Pressure Position Blood Pressure Position [Right Arm] Supine 02 Sat by Pulse Oximetry 98 98 88 L Oxygen Delivery Method Room Air 11/28/24 00:01 11/28/24 00:26 11/28/24 00:30 Temperature Temperature Source Pulse Rate 93 H 91 H 93 H Pulse Rate [Right Radial] Respiratory Rate 13 18 10 L Blood Pressure 159/83 H 199/91 H Blood Pressure [Right Arm] Blood Pressure Mean Blood Pressure Mean [Right Arm] Blood Pressure Source Blood Pressure Source [Right Arm] Blood Pressure Position Blood Pressure Position [Right Arm] 02 Sat by Pulse Oximetry 97 96 92 L Oxygen Delivery Method 11/28/24 00:45 11/28/24 01:18 Temperature 98.0 F Temperature Source Oral Pulse Rate 91 H 91 H Pulse Rate [Right Radial] Respiratory Rate 7 L 20 Blood Pressure 159/83 H Blood Pressure [Right Arm] Blood Pressure Mean Blood Pressure Mean [Right Arm] Blood Pressure Source Automatic Cuff Blood Pressure Source [Right Arm] Blood Pressure Position Sitting Blood Pressure Position [Right Arm] 02 Sat by Pulse Oximetry 91 L Oxygen Delivery Method Room Air Lab Data Lab results reviewed: Yes I reviewed the patient's lab results. Lab Results 11/27/24 23:50: WBC 13.8 H, RBC 4.58, Hgb 13.8, Hct 41.4, MCV 90.4, MCH 30.1, MCHC 33.3, RDW 14.9, Plt Count 443 H, MPV 9.1, Neut % (Auto) 78.2, Lymph % (Auto) 13.2, [place] % (Auto) 6.8, Eos % (Auto) 0.7, Baso % (Auto) 0.4, Neut # (Auto) 10.8 H, Lymph # (Auto) 1.8, [place] # (Auto) 0.9, Eos # (Auto) 0.1, Baso # (Auto) 0.1, Sodium 141, Potassium 4.3, Chloride 102, Carbon Dioxide 29, Anion Gap 14.3, BUN 20 H, Creatinine 1.30 H, Estimated Creat Clear 44, Estimated GFR 40 L, Est GFR ( Amer) 49 L, Glucose 129 H, Calcium 9.7, Total Bilirubin 0.5, AST 34, ALT 26, Alkaline Phosphatase 116, Total Protein 8.3 H D, Albumin 5.0, Globulin 3.3 H, Albumin/Globulin Ratio 1.5 11/28/24 00:15: Troponin I 0.06 H 11/27/24 23:50 11/27/24 23:50 Orders (Tests/Meds): ED MEDICATIONS Discontinued Medications Generic Name Dose Route Start Last Admin Trade Name Freq PRN Reason Stop Dose Admin Amlodipine Besylate 5 mg 11/27/24 23:52 11/27/24 23:59 Amlodipine 5mg Tablet PO 11/27/24 23:53 5 mg ONCE ONE Administration Nitroglycerin 0.4 mg 11/27/24 23:52 11/27/24 23:59 Nitroglycerin 0.4mg Sl Tablet SL 11/27/24 23:53 0.4 mg ONCE ONE Administration Ondansetron HCl 4 mg 11/28/24 00:15 11/28/24 00:23 Ondansetron 4mg/2ml Vial IV 11/28/24 00:16 4 mg ONCE ONE Administration Oxycodone HCl 10 mg 11/28/24 00:14 11/28/24 00:24 Oxycodone 5mg Immediate Release Tablet PO 11/28/24 00:15 10 mg ONCE ONE Administration ORDERS Category Date Time Status CXR --portable [XR chest portable] Stat Exams 11/27/24 23:52 Completed CBC w/Auto Diff [Complete Blood Count Auto Diff] Stat Lab 11/27/24 23:50 Completed CMP [Comprehensive Metabolic Panel] Stat Lab 11/27/24 23:50 Completed Troponin I Q3H Lab 11/27/24 23:53 Completed ECG Data Tracing #1: I reviewed this ECG and interpreted as documented below: ECG initial impression date: 11/27/24 ECG initial impression time: 23:48 ECG normal with no acute: arrhythmias, ischemia, conduction abnormalities, chamber hypertrophy HEART Score History (anamnesis): Slightly suspicious ECG: Normal Age: >65 years Risk factors: 1-2 risk factors Troponin: </= normal limit HEART Score: 3 Medical Decision Narrative: 74-year-old female with history of hypertension IBS hyperlipidemia presents for hypertension. History was obtained via interactive discussion with patient. On arrival, patient is afebrile, hypertensive with blood pressure 220/110, satting properly on room air, clear lungs bilaterally,, moving all extremities spontaneously. Full physical exam performed and significant for no significant physical exam abnormalities Differential includes but is not limited to hypertensive urgency, hypertensive emergency, stroke, acute aortic syndrome. Low concern for emergent pathology at this time given patient is asymptomatic with exception of tinnitus. Patient was given amlodipine 5 mg, 1 dose of sublingual nitro, home 10 mg of oxycodone for symptomatic management and correction of underlying abnormalities. Workup initiated including CBC CMP troponin EKG chest x-ray. On re-evaluation, patient blood pressure improved to 190 systolic, and then again to 160 systolic without further intervention.. Laboratory workup independently interpreted by me and significant for mild leukocytosis. Renal function stable from last month. Imaging independently interpreted by me and significant for clear lungs bilaterally without focal opacity. See radiology read for full review of final results. Admission for hypertensive was considered, but deemed unnecessary due to asymptomatic patient, benign workup, improvement in blood pressure. Given patient history, exam and workup, patient's presentation most likely represents hypertensive urgency. Unfortunately, we are still awaiting the patient's troponin results. We spoke with the lab and it is unclear when it will be finished because the machine is down and is in quality checks. I spoke with the patient and family extensively about her presentation. Given her blood pressures 190/90, she remains asymptomatic, has a benign EKG, my concern for NSTEMI is quite low. Patient would prefer to go home and return if the troponin is elevated. Given this, patient was discharged in stable condition with return precautions. I called and spoke with the patient after her troponin returned at 0.06. The patient has had a positive troponin every time it has been tested in the last 2 years. She had an NSTEMI in 2022 and had a isolated elevated reading noted in 2023 at 0.04. It is unclear whether this represents a baseline laboratory value or if this represents an NSTEMI. I called and recommended she return to the ER soon as possible for further assessment. Patient reports that she will come back in. She reports that she remains asymptomatic when I spoke with her on the phone. Procedures Risk/Benefits of Procedure(s) Were Explained: Yes Critical Care Critical Care Time Critical Care Time: No
[2024-11-27 23:43] VITALS: BP 220/110; PULSE 101; RESP 20; O2SAT 98
--- OUTSIDE RECORDS SUMMARY | 2024-11-27 23:47 | XMS_ITS | Encounter Summary ---
Author Organization [facility] Address [address] [place] [id number] Care Team Providers Care Laborer Bituminous Paving Name Role Phone GabrielTimothy armenta Primary Care Provider [phone] Reason for Visit * Reason Comments Med Refill Encounter Details Date Type Department Care Team (Late st Contact Info) Description 12/22/2021 Refill [facility] [address] [place] [address] Connor Nunez MD [address] [place] [address] Chronic arthritis associated with viral hepatitis Social History Tobacco Use Types Packs/Day Years Used Date Smoking Tobacco: Never Smokeless Tobacco: Never Alcohol Use Standard Drinks/Week Comments Yes 0 (1 standard drink = 0.6 oz pur e alcohol) rarely AUDIT-C Answer Date Recorded Frequency of Alcohol Consumption Never 07/10/2018 Average Number of Drinks Not on file 019 Frequency of Binge Drinking Not on file 07/01 PHQ-2 Answer Date Recorded Retired PHQ-9: Brief Depression Severity Measure Score 7 08/10/2021 Comments No Sex and Gender Information Value Date Recorded Sex Assigned at Not on file Legal Sex Female 10:14 AM EST Gender Identity Not on file Sexual Orientation Not on file documented as of this encounter Plan of Treatment Not on file documented as of this encounter Visit Diagnoses Diagnosis Chronic arthritis associated with viral hepatitis documented in this encounter Additional Health Concerns Assessment Noted Time PHQ-2 Depression Total Score: 2 08/11/19 22 3:16 PM EDT documented as of this encounter Care Teams Laborer Bituminous Paving Relationship Specialty Start Date End Date Timothy Granda DO [address] [place] [address] [place]M [id number] PCP - General Internal Medicine 06/12/23 documented as of this encounter
--- OUTSIDE RECORDS SUMMARY | 2024-11-27 23:47 | XMS_ITS | Patient Health Record ---
Author Organization [facility] Address [address] [place] [address] Care Team Providers Care Journeyman Powerhouse Operator Name Role Phone Timothy Granda DO Primary Care Provider Tha Chaudhry Unavailable [phone] Jesus Rose Unavailable Unavailable Reason For Referral No Information Encounters Encounter Location Date Provider Diagnosis [facility] [address] [place] [address] 04/01/2024 Tha Krishnamurthy [facility] [address] [place] [address] 05/13/2024 Tha Krishnamurthy [facility] [address] [place] [address] 06/17/2024 Tha Krishnamurthy Plan Of Treatment No Information Insurance Providers Payer Name Payer Address Payer Phone Subscriber Number Group Number Insured Name Patient Relationship to Insured Coverage Start Date Coverage End Date Medicare CGS Administrators [address] [id number] Farrah Anna Self - patient is the insured
--- OUTSIDE RECORDS SUMMARY | 2024-11-27 23:47 | XMS_ITS | Encounter Summary ---
Author Organization [facility] Address [address] [place] [address] Care Team Providers Care Classification Clerk Name Role Phone Timothy Granda DO Primary Care Provider [phone] Sadia Campo EYE SURGEON Unavailable Unavailable Encounter Details Date Type Department Care Team (Late st Contact Info) Description 07/24/2023 Lab Requisition [facility] [address] [place] [address] Miky Coleman MD [address] [facility] [address] [place] [address] Encounter for general adult medical [...] place to sleep or slept in a [facility] (including now)? Patient refused 07/23/2023 CAGE ASSESSMENT [...] drink first t mini in the morning (E[employer]-HEALTHCARE PROF) to steady your nerves or to get [...] at day 1 07/25/2023 12:01 AM EDT [facility] Swab (Nares and Renata Rectal) 07/23/2023 9:00 AM EDT 07/24/2023 4:19 AM EDT us Miky Coleman MD LAB MICROBIOLOGY - GEN ERAL ORDERABLES Final Result [facility] [address] [place] [address] documented in this encounter Visit Diagnoses Diagnosis [...] documented as of this encounter Care Teams Classification Clerk Relationship Specialty Start Date End Date Timothy Granda DO [address] [place] [address] PCP - General 05/25/23 Sadia Campo, [place] [address] Marine Technician Chief Architect 08/03/22 06/21/24 documented as of this encounter
--- NOTE | 2024-11-27 23:48 | ECG_ITS ---
APPROVED REPORT Exam: Resting ECG HR:98 bpm ECG Measurements Heart Rate 98 AXES NE 137 P 78 QRSd 80 QRS 54 QT 332 T 60 QTc 388 Conclusion SINUS RHYTHM NORMAL ECG UNCONFIRMED REPORT Electronically signed by : ZHANE WOLFE, 12/01/2024 05:06:00
--- OUTSIDE RECORDS SUMMARY | 2024-11-27 23:48 | XMS_ITS ---
Author Organization [facility] Address [address] [place] [id number] Care Team Providers Care Sales Training Coordinator Name Role Phone Timothy Granda DO Primary Care Provider [phone] Hepatitis C Program Status:Paused (Paused) Start date:08/03/2022 Enrollment date:08/03/2022 Enrollment reason:HCV Continued Care and Services Coordination
--- OUTSIDE RECORDS SUMMARY | 2024-11-27 23:48 | XMS_ITS | Clinical Summary ---
Author Organization [facility] Address [address] [place] [address] Care Team Providers Care Fish Header Name Role Phone KaleeTimothy Primary Care Provider [phone] Allergies Active Allergy Reactions Criticality Noted Date Comments Quinolones Other (See Comments) 07/18/2018 Fluoroquinolones- knee tendon, extreme pain and risk of rupture. Medications furosemide (LASIX) 40 MG tablet TAKE ONE TABLET BY MOUTH EVERY DAY 30 tablet 11 08/09/19 22 Active cloNIDine (CATAPRES) 0.1 MG tablet Take 1 tablet by mouth 2 (Two) Times a Day As Needed (anxiety). 08/05/19 22 Active DULoxetine (CYMBALTA) 60 MG capsule Take 1 capsule by mouth Daily. 07/26/19 22 Active amLODIPine (NORVASC) 10 MG tablet TAKE 1 TABLET BY MOUTH ONCE DAILY 60 tablet 11 11/29/19 22 Active diphenoxylate-atropine (LOMOTIL) 2.5-0.025 MG per tabletIndications:Irrita ble bowel syndrome with diarrhea Take 1 tablet by mouth 4 (Four) Times a Day As Needed for Diarrhea. 240 tablet 2 03/13/20 22 Active Fluticasone-Salmeterol (ADVAIR/WIXELA) 250-50 MCG/ACT DISKUS Inhale 1 puff 2 (Two) Times a Day. 60 each 5 03/13/20 22 Active atorvastatin (LIPITOR) 20 MG tabletIndications:Pure hypercholesterolemia Take 1 tablet by mouth Daily. 90 tablet 1 03/13/20 22 Active losartan (COZAAR) 50 MG tablet Take 1 tablet by mouth Every Night. 06/10/19 Active losartan (COZAAR) 25 MG tablet Take 1 tablet by mouth Every Morning Before Breakfast. 05/25/19 Active acyclovir (ZOVIRAX) 400 MG tablet TAKE 1 TABLET BY MOUTH 2 (TWO) TIMES A DAY. 60 tablet 4 12/14/19 Active potassium chloride (K-DUR,KLOR-CON) 20 MEQ CR tablet TAKE 1 TABLET BY MOUTH TWICE DAILY WITH FOOD 60 tablet 4 01/23/20 Active Active Problems Problem Noted Date Diagnosed Date S/P hip replacement, left 03/13/2022 S/P total knee replacement, right 03/13/2022 Chronic pain syndrome 03/13/2022 Assessment & Plan (03/13/2022 2:56 PM EST): Suspect opiate induced hyperalgesia. Plan will be to wait until joint replacement surgeries have been completed and then wean opiates. Patient may need Pain Management referral. Discontinue [place] and use oxycodone 10mg q6h prn. 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 Continue current treatment regimen. Dietary sodium restriction. Regular aerobic exercise. Blood pressure will be reassessed at the next regular appointment. Irritable bowel syndrome with diarrhea 2 S/p bilateral shoulder joint replacement 019 Right shoulder pain 07/18/2018 Hyperlipidemia 07/18/2018 Assessment & Plan (03/13/2022 2:54 PM EST): Lipid abnormalities are improving with treatment. Pharmacotherapy as ordered. Lipids will be reassessed in 6 months. Resolved Problems Problem Noted Date Diagnosed Date Resolved Date Hyponatremia, mild 07/19/2018 Leukocytosis, mild, likely reactive 07/19/2018 12/15/2021 Acute blood loss anemia, mild, asymptomatic 07/19/2018 12/15/2021 Acute postoperative pain 07/19/201803/2022 Immunizations Immunization Administration Dates Next Due COVID-19 (MODERNA) 1st,2nd,3rd Dose Monovalent 0 07/18/2021,01/27/2021 COVID-19 (MODERNA) BIVALENT 12+YRS 01/25/2022 FLUAD TRI 65YR+ 12/22/2019 Flu Vaccine Quad PF >36MO 02/14/2015 Fluad Quad 65+ 01/25/2022,05/31/2021 Pneumococcal Polysaccharide (PPSV23) 02/14/2015 Family History Medical History Relation Name Comments Cancer Maternal Aunt Kathy Guy Diagnosed at a ge 70. Successfully treated with mastectomy and radiation. Anxiety disorder Maternal Grandmother Kathy Martínez hild abuser. Cancer Mother Kathy Troy, and many others Dx @ age 65. Treated successfully with sentinal node biopsy followed by radiation. 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 Recurrence last month included metastisis throughout body Hyperlipidemia Mother Kathy Troy, and many others Mental illness Mother Kathy Troy, and many others Mental illness has been a plague upon my maternal family, too many victims to catalog - alcoholism, drug addiction and od s , sexual indiscretions, rage, etc., etc. Relation Name Status Comments Father Maternal Aunt aKthy Guy Maternal Grandmother Kathy Troy Mother Kathy Troy, and many others Alive Social History Tobacco Use Types Packs/Day Years Used Date Smoking Tobacco: Former Cigarettes 0.5 5 0 04/02/2004 - 04/02/2009 Smokeless Tobacco: Never Tobacco Cessation:Counseling Given: Not Answered Alcohol Use Standard Drinks/Week Comments Not Currently 0 (1 standard drink = 0.6 oz pur e alcohol) rarely AUDIT-C Answer Date Recorded Frequency of Alcohol Consumption Never 07/10/2018 Average Number of Drinks Not on file 019 Frequency of Binge Drinking Not on file 07/01 PHQ-2 Answer Date Recorded Retired PHQ-9: Brief Depression Severity Measure Score 4 03/13/2022 Abuse Screen Answer Date Recorded Unsafe at Home or Work/School Not on file Feels Threatened by Someone? Not on file 12/2022 Does Anyone Keep You from Co ntacting Others or Doint Things Outside the Home? Not on file 01/08/2023 Physical Sign of Abuse Present Not on file 1 Housing Stability Answer Date Recorded Current Living Arrangements Not on file 12/2022 Potentially Unsafe Housing Conditions Not on lisbeth e 01/08/2023 Family and Community Support Answer Lang e Recorded Help with Day-to-Day Activities Not on file 01/08/2023 Lonely or Isolated Not on file 01/08/2023 Employment Answer Date Recorded Do you want help finding or keeping work or a raisa b? Not on file 01/08/2023 Disabilities Answer Date Recorded Concentrating, Remembering, or Making Decisions Difficulty Not on file 01/08/2023 Doing Errands Independently Difficulty Not on fi le 01/08/2023 Education Answer Date Recorded Help with school or training? Not on file Preferred Language Not on file 01/08/2023 Comments No Sex and Gender Information Value Date Recorded Sex Assigned at Not on file Legal Sex Female 10:14 AM EST Gender Identity Not on file Sexual Orientation Not on file Last Filed Vital Signs Vital Sign Reading Time Taken Comments Blood Pressure 140/60 06/12/2022 2:02 PM EDT Pulse 90 06/12/2022 2:02 PM EDT Temperature 36.3 C (97.3 F) 06/12/2022 2:02 PM EDT Respiratory Rate 20 06/12/2022 2:02 PM EDT Oxygen Saturation 97% 06/12/2022 2:02 PM EDT Inhaled Oxygen Concentration - - Weight 80 kg (176 lb 6.4 oz) 06/12/2022 2:02 PM EDT Height 157.5 cm (5' 2.01 ) 06/12/2022 2:02 PM ED T Body Mass Index 32.26 06/12/2022 2:02 PM EDT Plan of Treatment Health Maintenance Due Date Last Done Comments DXA SCAN 1950 TDAP/TD VACCINES (1 - Tdap) 09/26/1970 COLOGUARD 09/26/1996 CT COLONOGRAPHY 09/26/1996 FECAL OCCULT BLOOD TEST 09/26/1996 FIT Testing (1 year) 09/26/1996 ZOSTER VACCINE (1 of 2) 09/26/2001 Pneumococcal Vaccine 50+ (2 of 2 - PCV) 02/15/2016 02/14/2015 ANNUAL WELLNESS VISIT 03/13/2023 03/13/2022, 022 LIPID PANEL 06/23/2023 06/22/2022, 03/02, 06/15/2021, Additional history exists COVID-19 Vaccine ( season) 2023 01/25/2022, 07/18/2021, 01/27/2021, Additional history exists INFLUENZA VACCINE 12/31/2024 02/08/2023, , 01/25/2022, Additional history exists MAMMOGRAM 02/28/2025 02/28/2023, 02/01, 02/23/2023, Additional history exists COLON CANCER SCREENING 5 YEAR SIGMOIDOSCOPY 02/22/2028 02/21/2023, 02/21/2023 COLONOSCOPY 08/08/2032 08/08/2022, 0510/2022, 12/07/2017, Additional history exists COLORECTAL CANCER SCREENING 08/08/2032 HEPATITIS C SCREENING Completed 12/15/2021 , 12/15/2021, 12/15/2021, Additional history exists HEMOGLOBIN A1C Discontinued 06/22/2022, 06/01, 07/10/2018 Hepatitis B Aged Out No longer eligi ble based on patient's age to complete this topic Medical Devices Implanted Type Area Water Restoration Technician Device Identifier Shelf Expiration Date Model / Serial / Lot Cmt Bone Simplex/P Full Dose /Pk - [id number] Implanted:Qty : 1 on 07/18/2018 by Bautista Luis MD at [facility] Implant Right: Shoulder TRACY RUBEN 09/29/2020 [id number] / / [id number] Stem Hum Univers [place] 6x60mm - [id number] Implanted:Qty : 1 on 07/18/2018 by Bautista Luis MD at [facility] Implant Right: Shoulder ARTHREX 08/30/2022 [id number] / / [id number] Alberto Vaultlock Sm - [id number] Implanted:Qty : 1 on 07/18/2018 by Bautista Luis MD at [facility] Implant Right: Shoulder ARTHREX 12/30/2022 [id number] / / [id number] Hd Hum Univers2 Cocr 69m24qr - [id number] Implanted:Qty : 1 on 07/18/2018 by Bautista Luis MD at [facility] Implant Right: Shoulder ARTHREX 03/01/2022 [id number] / / [id number] Sut Tw 2/0 38in Wht/Blk - [id number] Implanted:Qty : 3 on 07/18/2018 by Bautista Luis MD at [facility] Implant Right: Shoulder ARTHREX [id number] / / Totl Arth Shldr S3 - [id number] Implanted:Qty : 1 on 07/18/2018 by Bautista Luis MD at [facility] Implant Right: Shoulder ARTHREX CAPTOTLSHLD [id number] / / Procedures Procedure Name Priority Date/Time Associated Diagnosis Comments LIPID PANEL Routine 03/13/2022 2:53 PM EST Pure hypercholesterolemia HEPATITIS C GENOTYPE Routine 12/15/2021 11:55 AM EDT Polyarthralgia Chronic hepatitis C without hepatic coma SCANNED - MAMMO 08/23/2021 HEMOGLOBIN A1C Routine 07/10/2018 3:05 PM EDT from Last 3 Months or Most Recently Relevant to Health Maintenance Results * (ABNORMAL) Lipid Panel (03/13/2022 2:53 PM EST) Total Cholesterol 204(H) 100 - 199 mg/dL [facility] Triglycerides 190(H) 0 - 149 mg/dL [facility] HDL Cholesterol 61 >39 mg/dL [facility] VLDL Cholesterol Cirilo 33 5 - 40 mg/dL [facility] LDL Chol Calc (NIH) 110(H) 0 - 99 mg/dL [facility] Blood 03/13/2022 2:53 PM EST 03/13/2022 Narrative [facility] ([facility]) - 03/14/2022 5:07 AM EST Performed at: 01 - [facility] [address] [place], [place] [id number] Fruit Thinner: Carlos Rod PhD, Phone: [phone] Connor Nunez MD LAB BLOOD ORDERABLES Fin al Result Performing Organization Address [facility] Co de Phone Number [facility] (AMBULATORY) [address] [place] [address], [facility] [address] [place] [address], * Hepatitis C Genotype (12/15/2021 11:55 AM EDT) [facility] Signature Hepatitis C Genotype Comment [facility] Comment: Specimen has insufficient hepatitis C virus RNA to obtain genotyping results. This genotyping assay should only be used for known HCV positive patients with HCV RNA levels above 1000 IU/mL. Please note Comment [facility] Comment: This test was developed and its performance characteristics determined by [facility]. It has not been cleared or approved by the U.S. Food and Drug Administration. The FDA has determined that such clearance or approval is not necessary. This test is used for clinical purposes. It should not be regarded as investigational or for research. Blood 12/15/2021 11:5 5 AM EDT 12/16/2021 Narrative [facility] (AMBULATORY) - 12/21/2021 8:08 PM EDT Performed at: [address] [place] [id number] Fruit Thinner: Genna Davenport MD, Phone: [phone] Patient Fasting: Y Connor Nunez MD LAB BLOOD ORDERABLES Fin al Result Performing Organization Address [facility] Co de Phone Number [facility] (AMBULATORY) [address] [place] [address], [facility] [address] [place], [place] [id number], * SCANNED - MAMMO (08/23/2021) Anatomical Region Laterality Modality Other Connor Nunez MD CHART REVIEW TABS Fin al Result * Hemoglobin A1c (07/10/2018 3:05 PM EDT) Hemoglobin A1C 5.10 4.80 - 5.60 % 07/10/2018 3:58 PM EDT [facility] Blood Venipuncture / Unknown 07/10/2018 3:05 PM EDT 07/10/2018 3:36 PM EDT Narrative [facility] - 07/10/2018 3:58 PM EDT Hemoglobin A1C Ranges: Increased Risk for Diabetes 5.7% to 6.4% Diabetes >= 6.5% Diabetic Goal < 7.0% Bautista Luis MD LAB BLOOD ORDERABLES Fin al Result [facility]
[address] [place] [address], from Last 3 Months or Most Recently Relevant to Health Maintenance Insurance MEDICARE A & B Member Subscriber Plan / Payer (Ef fective 2013-Present) Name:Farrah Atkinson Member ID:[id number] Relation to Subscriber:Self Name:Farrah Atkinson Subscriber ID:[id number] Payer ID:[id number] Group ID:Not on file Type:Not on file Address: [facility] [id number] [place] [address] Advance Directives * CPR (Attempt to Resuscitate) (Latest Code Status on File) Date Activated Date Inactivated Comments 07/18/2018 6:35 PM 07/19/2018 6:14 PM Question Answer Comments Code Status (Patient has no pulse and is not breathing): CPR (Attempt to Resuscitate) Medical Interventions (Patie nt has pulse or is breathing): Full Level Of Support Discussed With: Patient Care Teams Fish Header Relationship Specialty Start Date End Date Timothy Granda DO [address] [place] [address] PCP - General Internal Medicine 06/12/23
--- OUTSIDE RECORDS SUMMARY | 2024-11-27 23:48 | XMS_ITS | Clinical Summary ---
Author Organization [facility] Address [address], [address] [place] [address] Care Team Providers Care Fence Rider Name Role Phone Unavailable Primary Care Provider [...] (ZANAFLEX) 4 MG tablet 03/20/2024 Active CREON 13290-807716 units CPEP delayed release capsule TAKE ONE [...] daily. Max Daily Amount: 3 tablets Active Active Problems Patient Care Coordination No te Formatting of this note migh t be different from the original. This patient is being followed by: Willa Lan Orthopedic Nurse Navigator Phone number: [phone] Problem Noted Date Diagnosed Date Left shoulder pain 11/05/2024 Encounters Date Type Department Care Team Description 11/21/2024 Telephone [facility] Orthopedic [facility] Sports [address] [address] Willa Lan RN Care Coordination (Nurse navigator) 11/20/2024 Telephone [facility] Orthopaedics and Spine [address] [place] [phone] Sharon Paulino MD Surgery Scheduling (LT SHDLR) 11/05/2024 Prep for Procedure [facility] Orthopedic [facility] Sports [address] [address] Laisha Galvan MA 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); Chronic left shoulder pain 10/10/2024 Telephone [facility] Ortho Clinic [address] [place] [address] Sharon Paulino MD Surgery Scheduling 09/11/2024 3:00 PM EDT Office Visit [facility] Medicine and [facility]opa[facility], [place] [address] [phone] Sharon Paulino MD 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); Chronic left shoulder pain 09/05/2024 Telephone [facility] [address] [place] [address] Sharon Paulino MD IMAGING 08/28/2024 11:15 AM EDT Office Visit [facility] [place], [place] [address] [address] Sharon Paulino MD Left shoulder pain, unspecified chronicity (Primary Dx); History of total replacement of left shoulder joint from Last 3 Months Family History Medical [...] 08/28/2024 11:16 AM EDT Plan of Treatment Upcoming Encounters Date Type Department Care Team (Late st Contact Info) Description 12/04/2024 1:30 PM EDT Office Visit [facility] Medicine and Orthopaedic [place], [address] [phone] Sharon Paulino MD [address] [address] Pre-op shoulder 12/15/2024 7:30 AM EDT Hospital Encounter [facility] General Surgery [facility] [place] [address] Sharon Paulino MD [address] [employer] [address] [place] [address] 12/15/2024 7:30 AM EDT - 12/15/2024 10:55 AM EDT Surgery [facility] General Surgery [facility] [place] [address] Sharon Paulino MD [address] [place] [phone] LEFT SHOULDER TOTAL ARTHROPLASTY REVISION TO COURTNEY-ARTHROPLASTY POSSIBLE REVISION TO REVERSE TOTAL SHOULDER REPLACEMENT 12/25/2024 1:30 PM EDT Office Visit [facility] Sports Medicine and [facility]opa[facility] [place], [place] [address] [phone] Sharon Paulino MD [address] [place] [phone] post op shoulder Scheduled Procedures Name Priority Associated Diagnoses Date/Ti me SHOULDER TOTAL ARTHROPLASTY REVISION Left shoulder pain 12/15/2024 7:30 AM EDT Health Maintenance Due Date Last Done Comments [...] age to complete this topic Insurance MEDICARE Member Subscriber Plan / Payer (Ef fective 2013-Present) Name:Farrah Atkinson Relation to Subscriber:Self Name:Farrah Atkinson Payer ID:Not on file Group ID:Not on file Type:Not on file Address: [address]
--- OUTSIDE RECORDS SUMMARY | 2024-11-27 23:49 | XMS_ITS | Encounter Summary ---
Author Organization [employer] ([place], [place], [place], [place]) Address [address] [place] [address] Care Team Providers Care Nanoscience Technician Name Role Phone [facility], Provider Not In The System Primary Care Provider Unavailable Encounter Details Date Type Department Care Team (Late st Contact Info) Description 04/28/2019 Transcribed Document [facility] Family Medicine [address] [place] [address] ProviderJean-Claude MD [address] [phone] Social History Tobacco Use Types Packs/Day Years Used Date Smoking Tobacco: Never Assessed Comments Unknown Sex and Gender Information Value Date Recorded Sex Assigned at Not on file Legal Sex Female 5:42 PM CDT Gender Identity Not on file Sexual Orientation Not on file documented as of this encounter Miscellaneous Notes * [employer]ner Conversion Note - Historical ProviderMD - 04/28/2019 8:29 AM 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
--- OUTSIDE RECORDS SUMMARY | 2024-11-27 23:49 | XMS_ITS | Encounter Summary ---
Author Organization [employer] ([place], [place], [place], [place]) Address [address] [place] [address] Care Team Providers Care Director Of Primary Care Name Role Phone [facility], Provider Not In The System Primary Care Provider Unavailable Encounter Details Date Type Department Care Team (Late st Contact Info) Description 04/28/2019 Transcribed Document [facility] Family Medicine [address] [place] [address] ProviderJean-Claude MD [address], [place] [phone] Social History Tobacco Use Types Packs/Day Years Used Date Smoking Tobacco: Never Assessed Comments Unknown Sex and Gender Information Value Date Recorded Sex Assigned at Not on file Legal Sex Female 5:42 PM CDT Gender Identity Not on file Sexual Orientation Not on file documented as of this encounter Miscellaneous Notes * Cerner Conversion Note - Historical ProviderMD - 04/28/2019 8:05 AM MEDICATION ADMINISTRATION PROFESSIONAL [facility] Main OR PreOp Summary Primary Physician: MADISON OSPINA MD-ORT Finalized Date/Time: 04/28/19 09:32:12 Pt. Name: MOISE ATKINSON/Sex: 1950 Female Med Rec #: [id number] Physician: MADISON OSPINA MD-ORT Financial #: [id number] Pt. Type: O Room/Bed: Admit/Disch: 04/28/19 05:30:00 - Institution: [facility] PreOp Case Times Entry 1 In Preop 04/28/19 05:40:00 Ready for Holding n/a Room Patient Ready for 04/28/19 07:15:00 Surgery Patient Out of Preop 04/28/19 07:36:00 Patient Out of n/a Holding Room Last Modified By: ISAMAR MORRISON, SPENCER 04/28/19 09:32:08 [facility] PreOp Case Times Audit 04/28/19 09:32:08 Capsule Inspector: [id number] Modifier: FLOYDSF <+> 1 Patient Out of Preop Finalized By: ISAMAR MORRISON, RN Document Signatures Signed By: ISAMAR MORRISON RN 04/28/19 09:32 Electronically signed by May [facility] Conversion Slot Shift Supervisor Cerner at 07/23/2022 4:31 PM CDT documented in this encounter Plan of Treatment Not on file documented as of this encounter Visit Diagnoses Not on filedocumented in this encounter Care Teams Director Of Primary Care Relationship Specialty Start Date End Date [facility], Provider Not In The System, [place] [address] PCP - General 04/16/23 documented as of this encounter
--- OUTSIDE RECORDS SUMMARY | 2024-11-27 23:49 | XMS_ITS | Encounter Summary ---
Author Organization [employer] ([place], [place], [place], [place]) Address [address] [place] [address] Care Team Providers Care Tactical Response Group Officer Name Role Phone [facility], Provider Not In The System Primary Care Provider Unavailable Encounter Details Date Type Department Care Team (Late st Contact Info) Description 04/28/2019 Transcribed Document [facility] Medicine [address] [place] [address] ProviderJean-Claude MD [address], [place] [phone] Social History Tobacco Use Types Packs/Day Years Used Date Smoking Tobacco: Never Assessed Comments Unknown Sex and Gender Information Value Date Recorded Sex Assigned at Not on file Legal Sex Female 5:42 PM CDT Gender Identity Not on file Sexual Orientation Not on file documented as of this encounter Miscellaneous Notes * Cerner Conversion Note - Historical ProviderMD - 04/28/2019 8:05 AM 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 Name: MOISE ATKINSON/Sex: 1950 Female Med Rec #: [id number] Physician: MADISON OSPINA MD-ORT Financial #: [id number] Pt. Type: O Room/Bed: Admit/Disch: 04/28/19 05:30:00 - Institution: [facility] OR PACU Case Times Entry 1 In PACU I 04/28/19 08:38:00 Ready for PACU 04/28/19 09:33:00 Discharge Discharge from PACU 04/28/19 09:33:00 I Last Modified By: Eduarda Patel Rn Patient Care Bedside 04/28/19 09:40:12 [facility] Main OR PACU Case Times Audit 04/28/19 09:40:12 Atomic Spectroscopist: SADE Modifier: SADE <+> 1 Ready for PACU Discharge <+> 1 Discharge from PACU I Finalized By: Eduarda Patel Rn Patient Care Bedside Document Signatures Signed By: Eduarda Patel Rn Patient Care Bedside 04/28/19 09:40 Electronically signed by May [facility] Conversion Monorail Hooker Cerner at 07/23/2022 4:28 PM CDT documented in this encounter Plan of Treatment Not on file documented as of this encounter Visit Diagnoses Not on filedocumented in this encounter Care Teams Tactical Response Group Officer Relationship Specialty Start Date End Date [facility], Provider Not In The System, [place] [address] PCP - General 04/16/23 documented as of this encounter
--- OUTSIDE RECORDS SUMMARY | 2024-11-27 23:49 | XMS_ITS | Encounter Summary ---
Author Organization [facility] Address [address], [address] [place] [address] Care Team Providers Care It Admin Name Role Phone Unavailable Primary Care Provider Unavailabl e Reason for Visit * Reason Onset Date Comments IMAGING 09/05/2024 Encounter Details Date Type Department Care Team (Late st Contact Info) Description 09/05/2024 Telephone [facility] [address] [place] [address] Sharon Paulino MD [address] [place] [address] [address] [place], [place] [id number] IMAGING Social History Tobacco Use Types Packs/Day [...] as of this encounter Plan of Treatment Upcoming Encounters Date Type Department Care Team (Late st Contact Info) Description 12/04/2024 1:30 PM EDT Office Visit [facility], [place] [phone] Sharon Paulino MD [address], [place] [phone] Pre-op shoulder 12/15/2024 7:30 AM EDT Hospital Encounter [facility] General Surgery [address] [place] [address] Sharon Paulino MD [address] [place] [address] 12/15/2024 7:30 AM EDT - 12/15/2024 10:55 AM EDT Surgery [facility] General Surgery [facility] [address] [place] [address] Sharon Paulino MD [address] [place] [address] LEFT SHOULDER TOTAL ARTHROPLASTY REVISION TO COURTNEY-ARTHROPLASTY POSSIBLE REVISION TO REVERSE TOTAL SHOULDER REPLACEMENT 12/25/2024 1:30 PM EDT Office Visit [facility], [address] [address] Sharon Paulino MD [address] [place] [address] post op shoulder Scheduled Procedures Name Priority Associated Diagnoses Date/Ti me SHOULDER TOTAL ARTHROPLASTY REVISION Left shoulder pain 12/15/2024 7:30 AM EDT documented as of this encounter Visit Diagnoses Not on filedocumented in this encounter
--- OUTSIDE RECORDS SUMMARY | 2024-11-27 23:49 | XMS_ITS | Referral Summary ---
Author Organization [employer] ([place], [place], [place], [place]) Address [address] [place] [address] Care Team Providers Care Salesperson Women'S Hats Name Role Phone [facility], Provider Not In The [...] Date Dereje rded Speak language other than [place] at home Not on file 04/12/2023 Want [...] of Treatment Not on file Care Teams Salesperson Women'S Hats Relationship Specialty Start Date End Date [facility], Provider Not In The System, [place] [address] PCP - General 04/16/23
--- OUTSIDE RECORDS SUMMARY | 2024-11-27 23:49 | XMS_ITS | Encounter Summary ---
Author Organization [employer] ([place], [place], [place], [place]) Address [address] [place] [address] Care Team Providers Care Building Cleaning Supervisor Name Role Phone [facility], Provider Not In The System Primary Care Provider Unavailable Encounter Details Date Type Department Care Team (Late st Contact Info) Description 04/28/2019 Transcribed Document [facility] [address] [place] [address] ProviderJean-Claude MD [address] [place], [place] [id number] Social History Tobacco Use Types Packs/Day Years Used Date Smoking Tobacco: Never Assessed Comments Unknown Sex and Gender Information Value Date Recorded Sex Assigned at Not on file Legal Sex Female 5:42 PM CDT Gender Identity Not on file Sexual Orientation Not on file documented as of this encounter Miscellaneous Notes * Cerner Conversion Note - Historical ProviderMD - 04/28/2019 10:01 AM PRESIDENT CELEBRITY ACQUISTION [place] [phone] MOISE ATKINSON :1950 Visit Time:04/28/2019 What to do next Your Diagnosis Pain in unspecified knee, Pain in unspecified knee Instructions From Your Care Team No driving or legal decision for 24 hours after anesthesia. may advance diet as tolerated. May take [place] 10-325mg 1 tablet by mouth every 4-6 [...] Comments Appointment has been made Where: [address] [facility] [address] [place] [address]- Medications What How Much When Instructions Next [...] activities are safe for you. ??? Take aomq-wtn-ipgcuqm and prescription medicines only as told by [...] 06/25/2001 Document Revised: 11/02/2017 Document Reviewed: 11/02/2017 [employer] Patient Education ?? 2019 [employer] Knee Arthroscopy, Care After Refer to [...] activities are safe for you. ??? Perform mlbps-rn-iqsncr exercises only as directed by your health [...] 10/06/2005 Document Revised: 08/18/2016 Document Reviewed: 03/15/2015 [employer] Interactive Patient Education ?? 2018 [employer]. acetaminophen and hydrocodone (a SEET a MIN oh fen and ladonna droe KOE done) Hycet, Lorcet, [place]os, Verdrocet, Vicodin, Xodol, Zamicet What is the [...] may report side effects to FDA at 8-082-OJT-6171. What other drugs will affect acetaminophen and [...] affect acetaminophen and hydrocodone, including prescription and wjwh-twr-nlsrmzb medicines, vitamins, and herbal products. Not all [...] to ensure that the information provided by [employer]. ('[employer]') is accurate, up-to-date, and complete, but no guarantee is made to that effect. Drug information contained herein may be time sensitive. [employer] information has been compiled for use by healthcare practitioners and consumers in the [place] and therefore [employer] does not warrant that uses outside of the [place] are appropriate, unless specifically indicated otherwise. [employer] drug information does not endorse drugs, diagnose patients or recommend therapy. [employer] drug information is an informational resource designed [...] effective or appropriate for any given patient. [employer] does not assume any responsibility for any aspect of healthcare administered with the aid of information [employer] provides. The information contained herein is not intended to cover all possible uses, directions, precautions, warnings, drug interactions, allergic reactions, or adverse effects. If you have questions about the drugs you are taking, check with your doctor, nurse or pharmacist. Copyright 9930-5152 [employer]. Version: 15.02. Revision Date: 02/04/2018. Emergency Awareness [...] Assistance with quitting is available by contacting 7-755-MZTH-NOW. This is a free resource providing counseling, [...] or Other Results This Visit Patient Name:MOISE ATKINSON I have received this information and was given the opportunity to ask questions. Patient/Construction Scheduler Name: Patient/Construction Scheduler Signature: Relationship to Patient: Clinician/Hospital Construction Scheduler Signature: Date: documented in this encounter Plan of Treatment Not on file documented as of this encounter Visit Diagnoses Not on filedocumented in this encounter Care Teams Building Cleaning Supervisor Relationship Specialty Start Date End Date Deejay, Provider Not In The System, [place] [address] PCP - General 04/16/23 documented as of this encounter
--- OUTSIDE RECORDS SUMMARY | 2024-11-27 23:49 | XMS_ITS | Encounter Summary ---
Author Organization [employer] ([place], [place], [place], [place]) Address [address] [place] [address] Care Team Providers Care Formation Testing Operator Name Role Phone Sj, Provider Not In The System Primary Care Provider Unavailable Encounter Details Date Type Department Care Team (Late st Contact Info) Description 04/28/2019 Transcribed Document [facility] [place] [address] ProviderJean-Claude MD [address] [place], [place] [id number] Social History Tobacco Use Types Packs/Day Years Used Date Smoking Tobacco: Never Assessed Comments Unknown Sex and Gender Information Value Date Recorded Sex Assigned at Not on file Legal Sex Female 5:42 PM CDT Gender Identity Not on file Sexual Orientation Not on file documented as of this encounter Miscellaneous Notes * Cerner Conversion Note - Jean-Claude ProviderMD - 04/28/2019 9:04 AM ELECTRO MECHANICAL ASSEMBLER DATE OF PROCEDURE: 04/28/2019 SURGEON: Timothy Foster [...] to the recovery room in satisfactory condition. /[id number] MD MICHAEL Trujillo/AQ / MICHAEL / MODL /[id number] documented in this encounter Plan of Treatment Not on file documented as of this encounter Visit Diagnoses Not on filedocumented in this encounter Care Teams Formation Testing Operator Relationship Specialty Start Date End Date Leslee, Provider Not In The System, [place] [address] PCP - General 04/16/23 documented as of this encounter
--- OUTSIDE RECORDS SUMMARY | 2024-11-27 23:49 | XMS_ITS | Encounter Summary ---
Author Organization [facility] Address [address] [facility], [address] [place] [address] Care Team Providers Care Multi Site Leasing Consultant Name Role Phone Unavailable Primary Care Provider Unavailabl e Reason for Visit * Reason Onset Date Comments Surgery Scheduling 10/10/2024 Encounter Details Date Type Department Care Team (Late st Contact Info) Description 10/10/2024 Telephone [facility] [address] [place] [address] Sharon Paulino MD [address] [place] [address] [address] [place] [address] Surgery Scheduling Social History Tobacco [...] Description 12/04/2024 1:30 PM EDT Office Visit [facility], [address] [place] [address] Sharon Paulion MD [address] [address] Pre-op shoulder 12/15/2024 7:30 AM EDT Hospital Encounter [facility] General Surgery [facility] [place] [address] Sharon Paulino MD [address] [facility] [address] [place] [address] 12/15/2024 7:30 AM EDT - 12/15/2024 10:55 AM EDT Surgery [facility] General Surgery [facility] [address] [place] [address] Sharon Paulino MD [address] [facility] [address] [place] [address] LEFT SHOULDER TOTAL ARTHROPLASTY REVISION TO COURTNEY-ARTHROPLASTY POSSIBLE REVISION TO REVERSE TOTAL SHOULDER REPLACEMENT 12/25/2024 1:30 PM EDT Office Visit [facility], [address] [address] Sharon Paulino MD [address] [facility] [address] [place] [address] post op shoulder Scheduled Procedures Name Priority Associated Diagnoses Date/Ti me SHOULDER TOTAL ARTHROPLASTY REVISION Left shoulder pain 12/15/2024 7:30 AM EDT documented as of this encounter Visit Diagnoses Not on filedocumented in this encounter
--- OUTSIDE RECORDS SUMMARY | 2024-11-27 23:49 | XMS_ITS | Encounter Summary ---
Author Organization [employer] ([place], [place], [place], [place]) Address [address] [place] [address] Care Team Providers Care Payment Analyst Name Role Phone [facility], Provider Not In The System Primary Care Provider Unavailable Encounter Details Date Type Department Care Team (Late st Contact Info) Description 04/28/2019 Transcribed Document [facility] Family Medicine [address] [place] [address] ProviderJean-Claude MD [address] [place], [place] [id number] Social History Tobacco Use Types Packs/Day Years Used Date Smoking Tobacco: Never Assessed Comments Unknown Sex and Gender Information Value Date Recorded Sex Assigned at Not on file Legal Sex Female 5:42 PM CDT Gender Identity Not on file Sexual Orientation Not on file documented as of this encounter Miscellaneous Notes * Cerner Conversion Note - Historical ProviderMD - 04/28/2019 8:05 AM MERCHANDISE FLOW TEAM MEMBER ADI Main OR PostOp Summary Primary Physician: MADISON OSPINA MD-ORT Finalized Date/Time: 04/28/19 10:18:29 Pt. Name: MOISE ATKINSON/Sex: 1950 Female Med Rec #: [id number] Physician: MADISON OSPINA MD-ORT Financial #: [id number] Pt. Type: O Room/Bed: Admit/Disch: 04/28/19 05:30:00 - [facility] [place] PostOp Case Times Entry 1 In PACU II 04/28/19 09:36:00 Ready for PACU II 04/28/19 10:15:00 Discharge Discharge from PACU 04/28/19 10:15:00 II Last Modified By: Shanel Conrad RN 04/28/19 10:18:24 Finalized By: Shanel Conrad, RN Document Signatures Signed By: Shanel Conrad RN 04/28/19 10:18 Electronically signed by May [facility] Conversion President [employer] at 07/23/2022 4:27 PM CDT documented in this encounter Plan of Treatment Not on file documented as of this encounter Visit Diagnoses Not on filedocumented in this encounter Care Teams Payment Analyst Relationship Specialty Start Date End Date [facility], Provider Not In The System, [place] [address] PCP - General 04/16/23 documented as of this encounter
--- OUTSIDE RECORDS SUMMARY | 2024-11-27 23:49 | XMS_ITS | Encounter Summary ---
Author Organization [facility] Address [address] [facility] [address] [facility], [address] [place] [address] Care Team Providers Care Solid Waste Division Supervisor Name Role Phone Unavailable Primary Care Provider Unavailabl e Reason for Visit * Reason Onset Date Comments Surgery Scheduling 11/20/2024 LT SHDLR Encounter Details Date Type Department Care Team (Late Contact Info) Description 11/20/2024 Telephone [facility] [address] [facility] [address] [place] [phone] [place] [address] [place] [address] [address] [place] [address] Surgery Scheduling (LT SHDLR) Social History Tobacco Use Types Packs/Day Years [...] Description 12/04/2024 1:30 PM EDT Office Visit [facility] [place], [address] [address] Sharon Paulino MD [address] [place] [address] Pre-op shoulder 12/15/2024 7:30 AM EDT Hospital Encounter [facility] General Surgery [address] [place] [address] Sharon Paulino MD [address] [employer] [address] [place] [address] 12/15/2024 7:30 AM EDT - 12/15/2024 10:55 AM EDT Surgery [facility] General Surgery [address] [place] [address] Sharon Paulino MD [address] [employer] [facility] [address] [place] [address] LEFT SHOULDER TOTAL ARTHROPLASTY REVISION TO COURTNEY-ARTHROPLASTY POSSIBLE REVISION TO REVERSE TOTAL SHOULDER REPLACEMENT 12/25/2024 1:30 PM EDT Office Visit [facility] [place], [address] [phone] Sharon Paulino MD [address] [facility] [address] [place] [address] post op shoulder Scheduled Procedures Name Priority Associated Diagnoses Date/Ti me SHOULDER TOTAL ARTHROPLASTY REVISION Left shoulder pain 12/15/2024 7:30 AM EDT documented as of this encounter Visit Diagnoses Not on filedocumented in this encounter
--- OUTSIDE RECORDS SUMMARY | 2024-11-27 23:49 | XMS_ITS | Encounter Summary ---
Author Organization [facility] Address [address] [facility] [place] [address] Care Team Providers Care Second Time Worker Name Role Phone Unavailable Primary Care Provider Unavailabl e Encounter Details Date Type Department Care Team (Latest Contact Info) Description 11/05/2024 Prep for Procedure [facility] [address] [phone] Laisha Galvan MA History of total replacement [...] Description 12/04/2024 1:30 PM EDT Office Visit [facility], [address] [address] Sharon Paulino MD [address] [place] [address] [address] [place] [address] Pre-op shoulder 12/15/2024 7:30 AM EDT Hospital Encounter [facility] General Surgery [address] [place] [address] Sharon Paulino MD [address] [facility] [address] [place] [address] 12/15/2024 7:30 AM EDT - 12/15/2024 10:55 AM EDT Surgery [facility] General Surgery [address] [place] [address] Sharon Paulino MD [address] [facility] [address] [place] [address] LEFT SHOULDER TOTAL ARTHROPLASTY REVISION TO COURTNEY-ARTHROPLASTY POSSIBLE REVISION TO REVERSE TOTAL SHOULDER REPLACEMENT 12/25/2024 1:30 PM EDT Office Visit [facility], [place] [address] Sharon Paulino MD [address] [facility] [address] [place] [address] post op shoulder Scheduled Procedures Name Priority Associated Diagnoses Date/Ti me SHOULDER TOTAL ARTHROPLASTY REVISION Left shoulder pain 12/15/2024 7:30 AM EDT documented as of this encounter Visit Diagnoses Diagnosis 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
--- OUTSIDE RECORDS SUMMARY | 2024-11-27 23:49 | XMS_ITS | Encounter Summary ---
Author Organization [employer] ([place], [place], [place], [place]) Address [address] [place] [address] Care Team Providers Care Semiconductor Wafers Marker Name Role Phone [facility], Provider Not In The System Primary Care Provider Unavailable Encounter Details Date Type Department Care Team (Late st Contact Info) Description 04/28/2019 Transcribed Document [facility] Family Medicine [place] [address] ProviderJean-Claude MD [facility] [place], [place] [id number] Social History Tobacco Use Types Packs/Day Years Used Date Smoking Tobacco: Never Assessed Comments Unknown Sex and Gender Information Value Date Recorded Sex Assigned at Not on file Legal Sex Female 5:42 PM CDT Gender Identity Not on file Sexual Orientation Not on file documented as of this encounter Miscellaneous Notes * Cerner Conversion Note - Historical ProviderMD - 04/28/2019 8:29 AM BIT SANDER Pain Assessment Entered On: 04/28/2019 9:06 EST [...] on filedocumented in this encounter Care Teams Semiconductor Wafers Marker Relationship Specialty Start Date End Date Leslee, Provider Not In The System, [place] [address] PCP - General 04/16/23 documented as of this encounter
--- OUTSIDE RECORDS SUMMARY | 2024-11-27 23:49 | XMS_ITS | Clinical Summary ---
Author Organization [employer] ([place], [place], [place], [place]) Address [address] [place] [address] Care Team Providers Care Progressive Care Nurse Name Role Phone [facility], Provider Not In The System Primary [...] Date Dereje rded Speak language other than Chadian at home Not on file 04/12/2023 Want [...] - 1-dose 75+ series) 09/26/2026 Care Teams Progressive Care Nurse Relationship Specialty Start Date End Date [facility], Provider Not In The System, [place] [address] PCP - General 04/16/23
--- OUTSIDE RECORDS SUMMARY | 2024-11-27 23:49 | XMS_ITS | Encounter Summary ---
Author Organization [employer] ([place], [place], [place], [place]) Address [address] [place] [address] Care Team Providers Care Manufacturing Recruiter Name Role Phone [facility], Provider Not In The System Primary Care Provider Unavailable Encounter Details Date Type Department Care Team (Late st Contact Info) Description 04/28/2019 Transcribed Document [facility] Family Medicine [address] [place] [address] ProviderJean-Claude MD [address] [place], [place] [id number] Social History Tobacco Use Types Packs/Day Years Used Date Smoking Tobacco: Never Assessed Comments Unknown Sex and Gender Information Value Date Recorded Sex Assigned at Not on file Legal Sex Female 5:42 PM CDT Gender Identity Not on file Sexual Orientation Not on file documented as of this encounter Miscellaneous Notes * Cerner Conversion Note - Historical ProviderMD - 04/28/2019 7:06 AM CONSERVATION POLICY ANALYST Pre Procedure Adult Entered On: 04/28/2019 7:12 EST Performed On: 04/28/2019 7:06 EST by ISAMAR MORRISON RN Height and Weight, Clinical Dosing Height Source : Stated Height Entry Format : Stanton Height, Feet : 5 ft(Converted to: 152 cm, 60 Inch) Height, Inches : 2 Inch(Converted to: 0 ft 2 Inch, 5.08 cm) Clinical Height : 157.48 cm Weight Source : Standing scale Weight Entry Format : Stanton Clinical Dosing Weight : 85 kg Weight, Pounds : 187 lb Body Surface Area (BSA) : 1.86 m2 Body Mass Index : 34.3 kg/m2 (HI) [place] Body Weight : 50 kg ISAMAR MORRISON [...] ISAMAR MORRISON RN - 04/28/2019 7:06 EST [place] Suicide Severity Rating Scale (C-SSRS) CSSRS Past [...] Obtained From : Patient Primary Language : Welsh Preferred Communication Mode : Verbal Communication Barrier [...] Scale Risk Level : 0-24 Low Risk [place] Fall Interventions : Bed in low position, [...] on filedocumented in this encounter Care Teams Manufacturing Recruiter Relationship Specialty Start Date End Date Leslee, Provider Not In The System, [place] [address] PCP - General 04/16/23 documented as of this encounter
--- OUTSIDE RECORDS SUMMARY | 2024-11-27 23:49 | XMS_ITS ---
Laboratory report Created on: November 04, 2024 MOISE PANDEY : 1950 Sex: Female Author Organization Unknown PROBLEMS Problems List Code Description RESULTS Laboratory Orders Date Order Code Test 2024-10-07 [id number] FUNGUS CULTURE W ITH STAIN Laboratory Results Date LOINC Test Value Unit Reference Range Interpre tation 2024-10-07 [id number] FUNGUS STAIN FINAL A 2024-10-07 580-1 RESULT 1 HPOS A 2024-10-07 580-1 FUNGUS (MYCOLOGY ) CULTURE FINAL A 2024-10-07 580-1 RESULT 1 ASPESY A
--- OUTSIDE RECORDS SUMMARY | 2024-11-27 23:49 | XMS_ITS | Encounter Summary ---
Author Organization [facility] Address [address] [place] [address] Care Team Providers Care Paper Coating Machine Operator Name Role Phone Chandra Leahy MD Primary Care Provider + [phone] Timothy Granda DO Primary Care Provider [phone] Sadia Campo VP CORPORATE DEVELOPMENT Unavailable Unavailable Encounter Details Date Type Department Care Team (Late st Contact Info) Description 08/14/2022 Lab Requisition [facility] [address] [place] [address] Dilip Lloyd MD [address] [address] Encounter for general adult medical [...] drink first t mini in the morning (EYE-GLAZIER STAINED GLASS) to steady your nerves or to get [...] LAB MICROBIOLOGY - GENERAL ORDERABLES Final Result [facility] [address] [place] [address] documented in this encounter Visit Diagnoses Diagnosis Encounter for general adult medical examination without abnormal findings documented in this encounter Additional Health Concerns Infection Onset Date Last Indicated Resolved Time COVID-19 Rule-Out 07/22/2023 07/22/2023 07/22/2023 12:14 PM EDT C. difficile Rule-Out 07/26/2023 08/01/20232023 1:07 AM EDT Gastrointestinal Rule-Out 08/02/2023 08/01/2023 3:00 AM EDT documented as of this encounter Care Teams Paper Coating Machine Operator Relationship Specialty Start Date End Date Chandra Leahy MD [address] [place] [address] PCP - General 08/02/22 05/24/23 Timothy Granda DO [address] [place] [address] PCP - General 05/25/23 Sadia Campo, [place] [address] Administration Vice President Biology Instructor 08/03/22 06/21/24 documented as of this encounter
--- OUTSIDE RECORDS SUMMARY | 2024-11-27 23:49 | XMS_ITS | Encounter Summary ---
Author Organization [facility] Address [address], [address] [place] [address] Care Team Providers Care Classification Officer Name Role Phone Unavailable Primary Care Provider Unavailabl e Reason for Visit * Reason Onset Date Comments Care Coordination 11/21/2024 Nurse navigato r Encounter Details Date Type Department Care Team (Late Contact Info) Description 11/21/2024 Telephone [facility] [address] [address] Willa Lan RN Care Coordination (Nurse navigator) Social History Tobacco Use Types Packs/Day Years [...] Encounters Date Type Department Care Team (Late Contact Info) Description 12/04/2024 1:30 PM EDT Office Visit [facility] [place], [address] [place], [place] [id number] Sharon Paulino MD [address] [place] [address] [address] [place] [address] Pre-op shoulder 12/15/2024 7:30 AM EDT Hospital Encounter [facility] General Surgery [address] [place] [address] Sharon Paulino MD [address] [facility] [address] [place] [address] 12/15/2024 7:30 AM EDT - 12/15/2024 10:55 AM EDT Surgery [facility] General Surgery [address] [place] [address] Sharon Paulino MD [address] [place] [address] LEFT SHOULDER TOTAL ARTHROPLASTY REVISION TO COURTNEY-ARTHROPLASTY POSSIBLE REVISION TO REVERSE TOTAL SHOULDER REPLACEMENT 12/25/2024 1:30 PM EDT Office Visit [facility], [place] [address] Sharon Paulino MD [address] [facility] [place] [address] post op shoulder Scheduled Procedures Name Priority Associated Diagnoses Date/Ti me SHOULDER TOTAL ARTHROPLASTY REVISION Left shoulder pain 12/15/2024 7:30 AM EDT documented as of this encounter Visit Diagnoses Not on filedocumented in this encounter
--- OUTSIDE RECORDS SUMMARY | 2024-11-27 23:49 | XMS_ITS | Encounter Summary ---
Author Organization [employer] ([place], [place], [place], [place]) Address [address] [place] [address] Care Team Providers Care Criminal Judge Name Role Phone [facility], Provider Not In The System Primary Care Provider Unavailable Encounter Details Date Type Department Care Team (Late st Contact Info) Description 04/28/2019 Transcribed Document [facility] [place] [facility] [address] ProviderJean-Claude MD [address] [place], [place] [id number] Social History Tobacco Use Types Packs/Day Years Used Date Smoking Tobacco: Never Assessed Comments Unknown Sex and Gender Information Value Date Recorded Sex Assigned at Not on file Legal Sex Female 5:42 PM CDT Gender Identity Not on file Sexual Orientation Not on file documented as of this encounter Miscellaneous Notes * Cerner Conversion Note - Historical ProviderMD - 04/28/2019 8:05 AM PERSONNEL GENERALIST MANAGER ADI Main OR IntraOp Summary Primary Physician: MADISON OSPINA MD-ORT Finalized Date/Time: 04/28/19 08:39:15 Pt. Name: FARRAH ATKINSON D.O.B./Sex: 1950 Female Med Rec #: [id number] Physician: MADISON OSPINA MD-ORT Financial #: [id number] Pt. Type: O Room/Bed: Admit/Disch: 04/28/19 05:30:00 - Institution: [facility] Intra Case Attendance Entry 1 Entry 2 Entry 3 Case Attendee MADISON OSPINA MD-ORT WICKER, KAREN KIM, ARIA WATERS RN Role Performed Surgeon/Proceduralist, SALES CONTRACTOR/Nurse Textile Technologist Oil Rig Driller, First First Time In 04/28/19 07:39:00 04/28/19 [...] Superficial Wound Closed By: Last Modified By: ARAI MELCHOR RN LONGSWORTH, GARY, SPENCER 04/28/19 08:34:51 04/28/19 08:34:51 [facility] IntraOp Case Attendance Audit 04/28/19 08:34:51 Power Ballast Machine Operator: LONGGA Modifier: LONGGA 1 <+> Time Out 1 <*> Procedure Knee Arthroscopy 2 <+> Time Out 2 <*> Procedure Knee Arthroscopy 3 <+> Time Out 3 <*> Procedure Knee Arthroscopy 4 <+> Time Out 4 <*> Procedure Knee Arthroscopy 5 <+> Time Out 5 <*> Procedure Knee Arthroscopy 04/28/19 08:07:14 Power Ballast Machine Operator: LONGGA Modifier: LONGGA <+> 1 Time In [...] [facility] IntraOp Case Times Audit 04/28/19 08:34:50 Power Ballast Machine Operator: LONGGA Modifier: LONGGA <+> 1 Out Room Time <+> 1 Stop Time 04/28/19 08:31:56 Power Ballast Machine Operator: LONGGA Modifier: LONGGA <+> 1 Stop Time [...] IntraOp Departure from OR Audit 04/28/19 08:32:27 Power Ballast Machine Operator: EMBER Modifier: LONGGA 1 <*> Patient Transport [...] RN 04/28/19 08:15:47 [facility] IntraOp General Case Instrument Lens Grinder Apprentice 1 Case Information OR OR 05 SJE Case Level 1 Room Verified Yes Wound Class I - Clean Specialty SN Orthopedic Anesthesia Type General ASA Class 3 Diagnosis Preop Diagnosis PATELLAR CHONDROMALACIA RIGHT KNEE Postop Same As Preop No Postop Diagnosis DICTATED BY Mary Last Modified By: ARIA MELCHOR RN 04/28/19 08:15:39 [facility] IntraOp General Case Data Audit 04/28/19 08:15:39 Power Ballast Machine Operator: EMBER Modifier: LONGGA <+> 1 ASA Class [...] Entry 1 Medication/Irrigant epinephrine 30mg/30ml vial - [id number] Route of 3ML/3000ML OF NS Administration IRRIGATION [...] SJE IntraOp Patient Positioning Audit 04/28/19 08:17:49 Power Ballast Machine Operator: LONGGA Modifier: LONGGA 1 <*> Procedure Knee [...] SJE IntraOp Surgical Procedures Audit 04/28/19 08:31:50 Power Ballast Machine Operator: LONGGA Modifier: LONGGA 1 <*> Procedure Knee Arthroscopy 1 <+> Stop 04/28/19 08:27:35 Power Ballast Machine Operator: LONGGA Modifier: LONGGA 1 <*> Procedure Knee Arthroscopy 1 <*> Additional Procedure Description RIGHT KNEE ARTHROSCOPY FOR RETROPATELLAR CHONDROPLASTY AND PARTIAL MENISCECTOMY 04/28/19 08:21:54 Power Ballast Machine Operator: LONGGA Modifier: LONGGA 1 <*> Procedure Knee Arthroscopy 1 <*> Additional Procedure Description LEFT KNEE ARTHROSCOPY FOR RETROPATELLAR CHONDROPLASTY AND PARTIAL MENISCECTOMY SJE IntraOp Temp Regulation Devices Entry 1 Temp Regulation Temperature Forced Air Warming Regulation Device device Temperature 4765 Regulation Device Serial/Unit Number Temperature Upper body Regulation Site Temperature FARRAH MANE, SALES CONTRACTOR Regulation Device Applied by Last Modified By: [...] 08:31:38 S[facility] IntraOp Tourniquet Audit 04/28/19 08:31:38 Power Ballast Machine Operator: EMBER Modifier: EMBER <+> 1 Stop Time Case Comments <None> Finalized By: ARIA MELCHOR, RN Document Signatures Signed By: ARIA MELCHOR RN 04/28/19 08:39 Electronically signed by May [facility] Conversion Member Services Representative Cerner at 07/23/2022 4:21 PM CDT documented in this encounter Plan of Treatment Not on file documented as of this encounter Visit Diagnoses Not on filedocumented in this encounter Care Teams Criminal Judge Relationship Specialty Start Date End Date Leslee, Provider Not In The System, [place] [address] PCP - General 04/16/23 documented as of this encounter
--- OUTSIDE RECORDS SUMMARY | 2024-11-27 23:49 | XMS_ITS | Clinical Summary ---
Author Organization [facility] Address [address] [place] [address] Phone Care Team Providers Care Linux Systems Engineer Name Role Phone Unavailable Primary Care Provider Unavailabl e Allergies No known active allergies Medications * This document contains information received from the source organization and may not represent a complete record from that organization. DULoxetine (CYMBALTA) 60 mg Oral Capsule, Delayed Release(E.C.) TAKE 2 CAPSULES BY MOUTH ONCE DAILY 60 Capsule 3 05/06/2024 Active cloNIDine (CATAPRES) 0.1 mg Oral Tablet TAKE ONE TO TWO TABLETS BY MOUTH 2 TO 3 TIMES A DAY NEEDED FOR ANXIETY MAY CAUSE DROWSINESS 180 Tablet 1 11/06/2024 Active ARIPiprazole (ABILIFY) 2 mg Oral Tablet Take 1 Tablet by mouth daily. 30 Tablet 5 11/21/2024 Active Active Problems No known active problems Medical [...] 02/14/2015 Bone Density Screening 09/26/2016 COVID-19 Vaccine ( season) 2024 02/20/2024, 02/09/2023, [...] Insurance MEDICARE [place] PART A AND B [employer]
--- OUTSIDE RECORDS SUMMARY | 2024-11-27 23:49 | XMS_ITS | Encounter Summary ---
Author Organization [employer] ([place], [place], [place], [place]) Address [address] [place] [address] Care Team Providers Care Senior Benefits Analyst Name Role Phone [facility], Provider Not In The System Primary Care Provider Unavailable Encounter Details Date Type Department Care Team (Late st Contact Info) Description 04/28/2019 Transcribed Document [facility] Family Medicine [facility] [place] [address] ProviderJean-Claude MD [address] [place] [place], [place] [id number] Social History Tobacco Use Types Packs/Day Years Used Date Smoking Tobacco: Never Assessed Comments Unknown Sex and Gender Information Value Date Recorded Sex Assigned at Not on file Legal Sex Female 5:42 PM CDT Gender Identity Not on file Sexual Orientation Not on file documented as of this encounter Miscellaneous Notes * Cerner Conversion Note - Jean-Claude ProviderMD - 04/28/2019 9:47 AM CONDITIONING COACH Patient Education Materials Follows: General Anesthesia, Adult, [...] activities are safe for you. ??? Take pmzf-wco-ztaebfy and prescription medicines only as told by [...] 06/25/2001 Document Revised: 11/02/2017 Document Reviewed: 11/02/2017 [employer] Interactive Patient Education ? 2019 [employer] Knee Arthroscopy, Care After Refer to [...] activities are safe for you. ??? Perform jehmb-dw-jewnpq exercises only as directed by your health [...] 03/15/2015 Elsevier Interactive Patient Education ? 2018 [employer] documented in this encounter Plan of Treatment Not on file documented as of this encounter Visit Diagnoses Not on filedocumented in this encounter Care Teams Senior Benefits Analyst Relationship Specialty Start Date End Date Leslee, Provider Not In The System, [place] [address] PCP - General 04/16/23 documented as of this encounter
--- OUTSIDE RECORDS SUMMARY | 2024-11-27 23:49 | XMS_ITS | Encounter Summary ---
Author Organization [employer] ([place], [place], [place], [place]) Address [address] [place] [address] Care Team Providers Care Internet Sales Representative Name Role Phone [facility], Provider Not In The System Primary Care Provider Unavailable Encounter Details Date Type Department Care Team (Late st Contact Info) Description 04/28/2019 Transcribed Document [facility] Family Medicine [address] [place] [address] ProviderJean-Claude MD [address] [place], [place] [id number] Social History Tobacco Use Types Packs/Day Years Used Date Smoking Tobacco: Never Assessed Comments Unknown Sex and Gender Information Value Date Recorded Sex Assigned at Not on file Legal Sex Female 5:42 PM CDT Gender Identity Not on file Sexual Orientation Not on file documented as of this encounter Miscellaneous Notes * Cerner Conversion Note - Historical ProviderMD - 04/28/2019 9:51 AM ROD BENDING MACHINE OPERATOR [place] [id number] MOISE PANDEY :1950 Visit Time:04/28/2019 What to do next Your Diagnosis Pain in unspecified knee, Pain in unspecified knee Instructions From Your Care Team No driving or legal decision for 24 hours after anesthesia. may advance diet as tolerated. May take [place] 10-325mg 1 tablet by mouth every 4-6 [...] Within 2 to 3 days Where: [address] [facility] [address] [place] [address]- Medications What How Much When Instructions Next [...] activities are safe for you. ??? Take eywz-ahw-cvyiqbp and prescription medicines only as told by [...] 06/25/2001 Document Revised: 11/02/2017 Document Reviewed: 11/02/2017 [employer] Interactive Patient Education ?? 2019 [employer] Inc. Knee Arthroscopy, Care After Refer to [...] activities are safe for you. ??? Perform qyyqe-hy-pjwspt exercises only as directed by your health [...] 10/06/2005 Document Revised: 08/18/2016 Document Reviewed: 03/15/2015 [employer] Interactive Patient Education ?? 2018 inDplay. acetaminophen and hydrocodone (a SEET a MIN oh fen and ladonna droe KOE done) Hycet, Lorcet, [place], Verdrocet, Vicodin, Xodol, Zamicet What is the [...] may report side effects to FDA at 3-811-VFW-5231. What other drugs will affect acetaminophen and [...] affect acetaminophen and hydrocodone, including prescription and pixh-rjv-yipzlkd medicines, vitamins, and herbal products. Not all [...] to ensure that the information provided by [employer]. ('[employer]') is accurate, up-to-date, and complete, but no guarantee is made to that effect. Drug information contained herein may be time sensitive. The [employer] information has been compiled for use by healthcare practitioners and consumers in the [place] and therefore The [employer] does not warrant that uses outside of the [place] are appropriate, unless specifically indicated otherwise. [employer] drug information does not endorse drugs, diagnose patients or recommend therapy. [employer] drug information is an informational resource designed [...] effective or appropriate for any given patient. The [employer] does not assume any responsibility for any aspect of healthcare administered with the aid of information The [employer] provides. The information contained herein is not intended to cover all possible uses, directions, precautions, warnings, drug interactions, allergic reactions, or adverse effects. If you have questions about the drugs you are taking, check with your doctor, nurse or pharmacist. Copyright 0451-8427 [employer]. Version: 15.02. Revision Date: 02/04/2018. Emergency Awareness [...] Assistance with quitting is available by contacting 6-210-EVQG-NOW. This is a free resource providing counseling, [...] was given the opportunity to ask questions. Patient/Goldsmith Apprentice Name: Patient/Goldsmith Apprentice Signature: Relationship to Patient: Clinician/Hospital Goldsmith Apprentice Signature: Date: documented in this encounter Plan of Treatment Not on file documented as of this encounter Visit Diagnoses Not on filedocumented in this encounter Care Teams Internet Sales Representative Relationship Specialty Start Date End Date Leslee, Provider Not In The System, [place] [address] PCP - General 04/16/23 documented as of this encounter
--- OUTSIDE RECORDS SUMMARY | 2024-11-27 23:50 | XMS_ITS | Clinical Summary ---
Author Organization [facility] Address [address] [place] [address] Care Team Providers Care Diving Board Assembler Name Role Phone Timothy Granda DO Primary Care Provider [phone] Allergies Active Allergy Reactions Criticality Noted Date [...] preservative free 02/14/2015 Influenza, trivalent, adjuvanted 12/22/2019 [facility] COVID-19 Vaccine (Blue Cap) 18+ 06/10/19 Moderna COVID-19 Vaccine (Re d Cap) 12+ years 07/18/2021,01/27/2021 Moderna COVID-19 Vaccine Bivalent 6months+ 01/25 PPD Skin Test (TB Skin Test) 09/04/2022 StepOne Covid-19 Vaccine 12y+ , Mahesh Protein, PF, [...] place to sleep or slept in a long term (including now)? Patient refused 07/23/2023 CAGE ASSESSMENT [...] drink first t mini in the morning (EYE-PARTY PLAN SALES AGENT) to steady your nerves or to get [...] 02/14/2015 [facility]-Medicare Annual Wellness (AWV) 03/13/2023 03/13/2022 [id number]-16 Vaccine ( season) 2023 02/09/2023, 01/25/2022, 07/18/2021, [...] Antigen Negative Negative 08/02/2023 7:49 PM EDT [facility] Hepatitis A Antibody IgM Negative Negative 08/02/2023 7:49 PM EDT [facility] Hepatitis B Core Antibody IgM Negative Negative 08/02/2023 7:49 PM EDT [facility] Blood Venous blood specimen / Unknown Venipuncture / Unknown 08/02/2023 2:56 PM EDT 08/02/2023 3:22 PM EDT Narrative [facility] - 08/02/2023 7:49 PM EDT [...] ORDERABLES Final R esult Performing Organization Address City/State/[facility] Co de Phone Number [facility] [address] [place] [address] * Flexible Sigmoidoscopy (02/21/2023 10:25 AM EST) [...] Misti Page MD Adam Rooks, MD Proceduralist vice president of engineering Adama Montes CRNA CRNA Harris, Kristi A, RN Endo Nurse Butch Little MD Fellow Tete Whitmore Endo Garnetter Preprocedure A history and physical has been [...] of bowel preparation was evaluated using the Dallas Bowel Preparation Scale with scores of: left [...] of bowel preparation was evaluated using the [place] Bowel Preparation Scale with scores of: right [...] Most Recently Relevant to Health Maintenance Insurance [facility] MEDICARE Member Subscriber Plan / Payer (Ef fective 2013-Present) Name:Farrah Atkinson Member ID:[id number] Relation to Subscriber:Self Name:Farrah Atkinson Subscriber ID:[id number] Payer ID:MEDICARE Group ID:Not on file Type:Medicare Address: [place] [phone] Advance Directives * Full Code (Latest Code [...] Patient has decision-making capacity? Yes Care Teams Diving Board Assembler Relationship Specialty Start Date End Date Timothy Granda DO [address] [place] [address] PCP - General 05/25/23
--- NOTE | 2024-11-27 23:52 | XR_ITS ---
PROCEDURE INFORMATION: Exam: XR Chest Exam date and time: 11/28/2024 12:04 AM Age: 74 years old Clinical indication: Other: HTN; Additional info: Severe HTN TECHNIQUE: Imaging protocol: Radiologic exam of the chest. Views: 1 view. COMPARISON: 1. CR XR CHEST PORTABLE 07/04/2024 2:59 AM 2. CR XR CHEST PORTABLE 11/17/2023 8:22 PM FINDINGS: Lungs: Unremarkable. No consolidation. Pleural spaces: Unremarkable. No pleural effusion. No pneumothorax. Heart/Mediastinum: Unremarkable. No cardiomegaly. Bones/joints: Unremarkable. IMPRESSION: Stable chest x-ray with no acute disease.
[2024-11-27] MEDS: NITROGLYCERIN 0.4MG SL TABLET 0.4 MG SL (23:59)
[2024-11-27] MEDS: AMLODIPINE 5MG TABLET 5 MG PO (23:59)
[2024-11-28] VITALS: BP 182/91; PULSE 68; RESP 20; O2SAT 88
[2024-11-28 00:01] VITALS: PULSE 93; RESP 13; O2SAT 97
[2024-11-28 00:05] LABS: Albumin Level 5.0 g/dl (3.5-5.0); Chloride 102 mmol/L (98-107); Hematocrit 41.4 % (37.0-47.0); Hemoglobin 13.8 g/dL (12.2-16.2); Immature Granulocytes % 0.7 %; Mean Corpuscular HGB Conc 33.3 g/dL (31.8-35.4); Mean Corpuscular Hemoglobin 30.1 pg (27.0-31.2); Mean Corpuscular Volume 90.4 fl (81-99); Nucleated Red Blood Cells % 0 %; Platelet Count 443 K/mm3 (142-424); Potassium 4.3 mmoL/L (3.5-5.1); Red Blood Count 4.58 M/mm3 (4.20-5.40); Red Cell Distribution Width-SD 49.0 fL; Sodium 141 mmol/L (136-145); White Blood Count 13.8 K/mm3 (4.8-10.8)
--- NOTE | 2024-11-28 00:07 | PC.NURSE ---
Pt in sinus tachycardia per continuous heart monitor
[2024-11-28 00:08] LABS: Alanine Aminotransferase 26 U/L (12-78); Albumin/Globulin Ratio 1.5 (1.1-1.8); Alkaline Phosphatase 116 U/L (38-126); Anion Gap 14.3 mEq/L (5-15); Aspartate Amino Transferase 34 U/L (14-36); Bilirubin,Total 0.5 mg/dl (0.2-1.3); Blood Urea Nitrogen 20 mg/dl (7-17); Calcium 9.7 mg/dl (8.4-10.2); Carbon Dioxide 29 mmol/L (22.0-30.0); Creatinine Clearance Estimated 44 mL/min (50-200); Creatinine,Serum 1.30 mg/dl (0.52-1.04); Estimated Glomerular Filt Rate 40 ml/min (>60); GFR (African American) 49 ML/MIN (>60); Globulin 3.3 g/dL (1.3-3.2); Glucose 129 mg/dl (74-100); Total Protein,Serum 8.3 g/dl (6.3-8.2)
[2024-11-28] MEDS: ONDANSETRON 4MG/2ML VIAL 4 MG IV (00:23)
[2024-11-28] MEDS: OXYCODONE 5MG IMMEDIATE RELEASE TABLET 10 MG PO (00:24)
[2024-11-28 00:26] VITALS: BP 159/83; PULSE 91; RESP 18; O2SAT 96
--- NOTE | 2024-11-28 00:26 | PC.NURSE ---
Pt medicated for c/o pain States she has chronic abd and joint pain and headache after NTG
[2024-11-28 00:30] VITALS: BP 199/91; PULSE 93; RESP 10; O2SAT 92
[2024-11-28 00:45] VITALS: PULSE 91; RESP 7; O2SAT 91
[2024-11-28 01:18] VITALS: BP 159/83; PULSE 91; RESP 20; TEMP 36.7; O2SAT 98
[2024-11-28 02:06] LABS: Troponin I 0.06 ng/ml (0.00-0.034)
== END 2024-11-28 01:26 | disposition home or self-care (01) ==
PROVIDERS: Emergency Provider Emergency Medicine; PCP Family Medicine
DX: I16.0 Hypertensive urgency (principal)
CPT/HCPCS: 71045; 80053; 84484; 85025; 93005; 96374; 99284; J2405

== ENCOUNTER 2024-11-28 05:08 | Emergency (ER) | payer MEDICARE, OTHER, SELFPAY ==
--- OUTSIDE RECORDS SUMMARY | 2024-04-17 07:45 | XMS_ITS ---
Author Organization [facility] Address [address] [place] [address] Care Team Providers Care Dance Master Name Role Phone Timothy Granda DO Primary Care Provider Tha Chaudhry Unavailable [phone] Jesus Rose Unavailable REASON FOR VISIT NEW PATIENT Encounters Encounter Location Date Provider Diagnosis [facility] [address] [place] [address] 04/17/2024 Jesus Rose Plan Of Treatment No Information Progress Notes * DEMETRIO MonroeMaryellenOB:[birth year] (74 yo F)Acc No.[id number]:04/17/2024 Progress Notes Patient: Farrah SEAY Provider: Leelee Rose :1950 A ge:73 Y S ex:Female Date:04/17/2024 [facility] Pcp:Timothy Granda DO Subjective: * Chief Complaints: * 1 . NEW PATIENT. * Medical History: Objective: * Vitals: Assessment: Plan: * Treatment: * * Electronic signature of Reza Rose APRN on 11/28/2024 at 05:15 AM EDT Sign off status: Pending * Provider: Leelee Rose Date: 0 04/17/2024 Generated for Brisa conway/Sahra/Angela on: 0 11/28/2024 05:15 AM EDT
--- OUTSIDE RECORDS SUMMARY | 2024-05-13 09:30 | XMS_ITS ---
Author Organization [facility] Address [address] [place] [address] Care Team Providers Care Echocardiography Tech Name Role Phone Timothy Granda DO Primary Care Provider Tha Chaudhry Unavailable [phone] REASON FOR VISIT NEW PATIENT Encounters Encounter Location Date Provider Diagnosis [facility] [address] [place] [address] 05/13/2024 Tha Krishnamurthy Plan Of Treatment No Information Progress Notes * Giselle ATKINSONOB:[birth year] (74 yo F)Acc No.[id number]:05/13/2024 Progress Notes Patient: Farrah SEAY Provider: Sarabjit Krishnamurthy MD :1950 A ge:73 Y S ex:Female Date:05/13/2024 [facility] Pcp:Timothy Granda DO Subjective: * Chief Complaints: * 1 . NEW PATIENT. * Medical History: Objective: * Vitals: Assessment: Plan: * Treatment: * * Electronic signature of Didier Krishnamurthy MD on 11/28/2024 at 05:15 AM EDT Sign off status: Pending * Provider: Sarabjit Krishnamurthy MD Date: 0 05/13/2024 Generated for Brisa conway/Sahra/Jujuitting on: 0 11/28/2024 05:15 AM EDT
--- OUTSIDE RECORDS SUMMARY | 2024-06-17 09:30 | XMS_ITS ---
Author Organization [facility] Address [address] [place] [address] Care Team Providers Care Will Call Clerk Name Role Phone Timothy Granda DO Primary Care Provider Tha Chaudhry [facility] [phone] REASON FOR VISIT NEW PATIENT Encounters Encounter Location Date Provider Diagnosis [facility] [address] [place] [address] 06/17/2024 Tha Krishnamurthy Plan Of Treatment No Information Progress Notes * Giselle ATKINSONOB:[birth year] (74 yo F)Acc No.[id number]:06/17/2024 Progress Notes Patient: Farrah SEAY Provider: Sarabjit Krishnamurthy MD :1950 A ge:73 Y S ex:Female Date:06/17/2024 [facility] Pcp:Timothy Granda DO Subjective: * Chief Complaints: * 1 . NEW PATIENT. * Medical History: Objective: * Vitals: Assessment: Plan: * Treatment: * * Electronic signature of Didier Krishnamurthy MD on 11/28/2024 at 05:16 AM EDT Sign off status: Pending * Provider: Sarabjit Krishnamurthy MD Date: 06/17/2024 Generated for Brisa conway/Sahra/Jujuitting on: 0 11/28/2024 05:16 AM EDT
[2024-11-28 05:15] VITALS: BP 131/78; PULSE 112; RESP 20; TEMP 36.7; O2SAT 92; BMI 29.2
--- OUTSIDE RECORDS SUMMARY | 2024-11-28 05:15 | XMS_ITS | Clinical Summary ---
Author Organization [facility] Address [address] [place] [address] Care Team Providers Care Checkman Name Role Phone KaleeTimothy Primary Care Provider [phone] Allergies Active Allergy Reactions Criticality Noted Date [...] Patient may need Pain Management referral. Discontinue [place] and use oxycodone 10mg q6h prn. Discussed with patient will not increase this medicine oysterman prescription opiate use 03/13/2022 Chronic arthritis associated [...] Relation Name Status Comments Father Maternal Aunt Kathy Guy Maternal Grandmother Kathy Troy Mother Kathy [...] this topic Medical Devices Implanted Type Area Groundsman Device Identifier Shelf Expiration Date Model / Serial / Lot Cmt Bone Simplex/P Full Dose /Pk - [id number] Implanted:Qty : 1 on 07/18/2018 by Bautista Luis MD at [facility] Implant Right: Shoulder TRACY RUBEN 09/29/2020 [id number] / / [id number] Stem Hum Univers [place] 6x60mm - [id number] Implanted:Qty : 1 on 07/18/2018 by Bautista Luis MD at [facility] Implant Right: Shoulder ARTHREX 08/30/2022 [id number] / / [id number] Alberto Vaultlock Sm - [id number] Implanted:Qty : 1 on 07/18/2018 by Bautista Luis MD at [facility] Implant Right: Shoulder ARTHREX 12/30/2022 [id number] / / [id number] Hd Hum Univers2 Cocr 01q28qe - [id number] Implanted:Qty : 1 on 07/18/2018 by Bautista Luis MD at [facility] Implant Right: Shoulder ARTHREX 03/01/2022 [id number] / / [id number] Sut Tw 2/0 38in Wht/Blk - [id number] Implanted:Qty : 3 on 07/18/2018 by Bautista Luis MD at [facility] Implant Right: Shoulder ARTHREX [id number] / / Totl Arth Shldr S3 - [id number] Implanted:Qty : 1 on 07/18/2018 by Bautista Luis MD at [facility] Implant Right: Shoulder ARTHREX CAPTOTLSHLD [id number] / / Procedures Procedure Name Priority Date/Time [...] 5:07 AM EST Performed at: 01 - [facility] [address] [place], [place] [id number] Pacu Rn: Carlos Rod PhD, Phone: [phone] Connor Nunez MD LAB BLOOD ORDERABLES Fin al Result Performing Organization Address [facility] [address]/[facility] Co de Phone Number [facility] [address] [place] [address], [facility] [address] [place] [address], * Hepatitis C Genotype (12/15/2021 11:55 AM EDT) [facility] Signature Hepatitis C Genotype Comment [facility] Comment: Specimen has insufficient hepatitis C virus RNA to obtain genotyping results. This genotyping assay should only be used for known HCV positive patients with HCV RNA levels above 1000 IU/mL. Please note Comment [facility] Comment: This test was developed and its performance characteristics determined by [facility]. It has not been cleared or approved by the U.S. Food and Drug Administration. The FDA has determined that such clearance or approval is not necessary. This test is used for clinical purposes. It should not be regarded as investigational or for research. Blood 12/15/2021 11:5 5 AM EDT 12/16/2021 Narrative [facility] - 12/21/2021 8:08 PM EDT Performed at: [address] [place] [id number] Pacu Rn: Genna Davenport MD, Phone: [phone] Patient Fasting: Y Connor Nunez MD LAB BLOOD ORDERABLES Fin al Result Performing Organization Address [facility] [address]/[facility] Co de Phone Number [facility] [address] [place] [address], [facility] [address] [place], [place] [id number], * SCANNED - MAMMO (08/23/2021) Anatomical Region Laterality Modality Other Connor Nunez MD CHART REVIEW TABS Fin al Result * Hemoglobin A1c (07/10/2018 3:05 PM EDT) Hemoglobin A1C 5.10 4.80 - 5.60 % 07/10/2018 3:58 PM EDT [facility] Blood Venipuncture / Unknown 07/10/2018 3:05 PM EDT 07/10/2018 3:36 PM EDT Narrative [facility] - 07/10/2018 3:58 PM EDT Hemoglobin A1C Ranges: Increased Risk for Diabetes 5.7% to 6.4% Diabetes >= 6.5% Diabetic Goal < 7.0% Bautista Luis MD LAB BLOOD ORDERABLES Fin al Result [facility]
[address] [place] [address], from Last 3 Months or Most Recently Relevant to Health Maintenance Insurance MEDICARE A & B Member Subscriber Plan / Payer (Ef fective 2013-Present) Name:Farrah Atkinson Member ID:[id number] Relation to Subscriber:Self Name:Farrah Atkinson Subscriber ID:[id number] Payer ID:[id number] Group ID:Not on file Type:Not on file Address: [facility] [id number] [address] [place] [address] Advance Directives * CPR (Attempt to Resuscitate) (Latest Code Status on File) Date Activated Date Inactivated Comments 07/18/2018 6:35 PM 07/19/2018 6:14 PM Question Answer Comments Code Status (Patient has no pulse and is not breathing): CPR (Attempt to Resuscitate) Medical Interventions (Patie nt has pulse or is breathing): Full Level Of Support Discussed With: Patient Care Teams Checkman Relationship Specialty Start Date End Date Timothy Granda DO [address] [place] [address] PCP - General Internal Medicine 06/12/23
--- OUTSIDE RECORDS SUMMARY | 2024-11-28 05:15 | XMS_ITS | Patient Health Record ---
Author Organization [facility] Address [address] [place] [address] Care Team Providers Care Stress Analyst Name Role Phone Timothy Granda DO Primary Care Provider Tah Chaudhry Unavailable [phone] Jesus Rose Unavailable Unavailable Reason For Referral No Information Encounters Encounter Location Date Provider Diagnosis [facility] [address] [place] [address] 04/01/2024 Tha Krishnamurthy [facility] [address] [place] [address] 05/13/2024 Tha Krishnamurthy [facility] [address] [place] [address] 06/17/2024 Tha Krishnamurthy Plan Of Treatment No Information Insurance Providers Payer Name Payer Address Payer Phone Subscriber Number Group Number Insured Name Patient Relationship to Insured Coverage Start Date Coverage End Date Medicare CGS Administrators [address] [id number] Farrah Anna Self - patient is the insured
--- OUTSIDE RECORDS SUMMARY | 2024-11-28 05:15 | XMS_ITS | Clinical Summary ---
Author Organization [facility] Address [address], [address] [place] [address] Care Team Providers Care Splicer Machine Operator Name Role Phone Unavailable Primary Care [...] (ZANAFLEX) 4 MG tablet 03/20/2024 Active CREON [id number] units CPEP delayed release capsule TAKE ONE [...] Willa Lan Orthopedic Nurse Navigator Phone number: [phone] Problem Noted Date Diagnosed Date Left shoulder pain 11/05/2024 Encounters Date Type Department Care Team Description 11/21/2024 Telephone [facility] [address] [address] Willa Lan RN Care Coordination (Nurse navigator) 11/20/2024 Telephone 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); Chronic left shoulder pain 10/10/2024 Telephone [facility] [address] [place] [address] Sharon Paulino MD Surgery Scheduling 09/11/2024 3:00 PM EDT Office Visit [facility], [place] [address] [id number] Sharon Paulino MD 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); Chronic left shoulder pain 09/05/2024 Telephone [facility] [address] [place] [address] Sharon Paulino MD IMAGING 08/28/2024 11:15 AM EDT Office Visit [facility] [place], [place] [address] [address] Sharon Paulino MD Left shoulder [...] Description 12/04/2024 1:30 PM EDT Office Visit [facility] [place], [address] [id number] Sharon Paulino MD [address], [place] [address] Pre-op shoulder 12/15/2024 7:30 AM EDT Hospital Encounter [facility] General Surgery [facility] [place] [address] Sharon Paulino MD [address] [place] [address] 12/15/2024 7:30 AM EDT - 12/15/2024 10:55 AM EDT Surgery [facility] General Surgery [facility] [place] [address] Sharon Paulino MD [address] [place] [address] LEFT SHOULDER TOTAL ARTHROPLASTY REVISION TO COURTNEY-ARTHROPLASTY POSSIBLE REVISION TO REVERSE TOTAL SHOULDER REPLACEMENT 12/25/2024 1:30 PM EDT Office Visit [facility] [place], [place] [address] [id number] Sharon Paulino MD [address] [place] [address] post op shoulder Scheduled Procedures Name Priority [...] ID:Not on file Type:Not on file Address: [address]
--- OUTSIDE RECORDS SUMMARY | 2024-11-28 05:15 | XMS_ITS ---
Author Organization [facility] Address [address] [id number] Care Team Providers Care Acute Care Assistant Name Role Phone Timothy Granda DO Primary Care Provider [phone] Hepatitis C Program Status:Paused (Paused) Start date:08/03/2022 Enrollment date:08/03/2022 Enrollment reason:HCV Continued Care and Services Coordination
--- OUTSIDE RECORDS SUMMARY | 2024-11-28 05:15 | XMS_ITS | Encounter Summary ---
Author Organization [facility] Address [address] [place] [id number] Care Team Providers Care Textile Technologist Name Role Phone GabrielTmiothy armenta Primary Care Provider [phone] Reason for Visit * Reason Comments Med Refill Encounter Details Date Type Department Care Team (Late st Contact Info) Description 12/22/2021 Refill [facility] [address] [place] [address] Connor Nunez MD [address] [place] [address] Chronic arthritis associated with viral [...] documented as of this encounter Care Teams Textile Technologist Relationship Specialty Start Date End Date Timothy Granda DO [address] [place] [address] SHANLAURA CLEM [address] PCP - General Internal Medicine 06/12/23 documented as of this encounter
--- OUTSIDE RECORDS SUMMARY | 2024-11-28 05:15 | XMS_ITS | Encounter Summary ---
Author Organization [facility] Address [address] [place] [address] Care Team Providers Care Qc Analyst Name Role Phone Timothy Granda DO Primary Care Provider [phone] Sadia Campo DIRECTOR OF ACCOUNTS RECEIVABLE Unavailable Unavailable Encounter Details Date Type Department Care Team (Late st Contact Info) Description 07/24/2023 Lab Requisition [facility] [address] [place] [address] Miky Coleman MD [address] [facility] [address] [place] [address] Encounter for general adult medical [...] place to sleep or slept in a jail (including now)? Patient refused 07/23/2023 CAGE ASSESSMENT [...] drink first t mini in the morning (EYE-BLENDING OPERATOR) to steady your nerves or to [...] at day 1 07/25/2023 12:01 AM EDT [facility] Swab (Nares and Renata Rectal) 07/23/2023 9:00 AM EDT 07/24/2023 4:19 AM EDT us Miky Coleman MD LAB MICROBIOLOGY - GEN ERAL ORDERABLES Final Result [facility] [address] [place] [address] documented in this encounter Visit Diagnoses Diagnosis [...] documented as of this encounter Care Teams Qc Analyst Relationship Specialty Start Date End Date Timothy Granda DO [address] [place] [address] PCP - General 05/25/23 Sadia Campo, [place] [address] Casing Material Weigher A&P Technician 08/03/22 06/21/24 documented as of this encounter
--- OUTSIDE RECORDS SUMMARY | 2024-11-28 05:16 | XMS_ITS | Encounter Summary ---
Author Organization [employer] ([place], [place], [place], [place]) Address [address] [place] [address] Care Team Providers Care Music Education Director Name Role Phone [facility], Provider Not In The System Primary Care Provider Unavailable Encounter Details Date Type Department Care Team (Late st Contact Info) Description 04/28/2019 Transcribed Document [facility] Family Medicine [address] [place] [address] ProviderJean-Claude MD [address] [place], [place] [id number] Social History Tobacco Use Types Packs/Day Years Used Date Smoking Tobacco: Never Assessed Comments Unknown Sex and Gender Information Value Date Recorded Sex Assigned at Not on file Legal Sex Female 5:42 PM CDT Gender Identity Not on file Sexual Orientation Not on file documented as of this encounter Miscellaneous Notes * Cerner Conversion Note - Historical ProviderMD - 04/28/2019 8:05 AM AIR ROUTE TRAFFIC CONTROLLER [facility] Main OR PreOp Summary Primary Physician: MADISON OSPINA MD-ORT Finalized Date/Time: 04/28/19 09:32:12 Pt. Name: MOISE ATKINSON/Sex: 1950 Female Med Rec #: [id number] Physician: MADISON OSPINA MD-ORT Financial #: [id number] Pt. Type: O Room/Bed: Admit/Disch: 04/28/19 05:30:00 - Institution: [facility] PreOp Case Times Entry 1 In Preop 04/28/19 05:40:00 Ready for Holding n/a Room Patient Ready for 04/28/19 07:15:00 Surgery Patient Out of Preop 04/28/19 07:36:00 Patient Out of n/a Holding Room Last Modified By: ISAMAR MORRISON, SPENCER 04/28/19 09:32:08 [facility] PreOp Case Times Audit 04/28/19 09:32:08 Hvac Operations Technician: [email or web address] Modifier: [email or web address] <+> 1 Patient Out of Preop Finalized By: ISAMAR MORRISON, RN Document Signatures Signed By: ISAMAR MORRISON RN 04/28/19 09:32 Electronically signed by May [facility] Conversion Mva Still Operator Cerner at 07/23/2022 4:31 PM CDT documented in this encounter Plan of Treatment Not on file documented as of this encounter Visit Diagnoses Not on filedocumented in this encounter Care Teams Music Education Director Relationship Specialty Start Date End Date [facility], Provider Not In The System, [place] [address] PCP - General 04/16/23 documented as of this encounter
--- OUTSIDE RECORDS SUMMARY | 2024-11-28 05:16 | XMS_ITS | Encounter Summary ---
Author Organization [facility] Address [address] [place] [address] Care Team Providers Care Deputy Grand Jury Name Role Phone Chandra Leahy MD Primary Care Provider [phone] Timothy Granda DO Primary Care Provider [phone] Sadia Campo SUGAR HOUSE SUPERVISOR Unavailable Unavailable Encounter Details Date Type Department Care Team (Late st Contact Info) Description 08/14/2022 Lab Requisition [facility] [address] [place] [address] Dilip Lloyd MD [address] [address] Encounter for general adult medical [...] drink first t mini in the morning (EYE-OUTREACH REP) to steady your nerves or to get [...] - GENERAL ORDERABLES Final Result [facility] [address] [place] [address] documented in this encounter Visit Diagnoses Diagnosis Encounter for general adult medical examination without abnormal findings documented in this encounter Additional Health Concerns Infection Onset Date Last Indicated Resolved Time COVID-19 Rule-Out 07/22/2023 07/22/2023 07/22/2023 12:14 PM EDT C. difficile Rule-Out 07/26/2023 08/01/20232023 1:07 AM EDT Gastrointestinal Rule-Out 08/02/2023 08/01/2023 3:00 AM EDT documented as of this encounter Care Teams Deputy Grand Jury Relationship Specialty Start Date End Date Chandra Leahy MD [address] [place] [address] PCP - General 08/02/22 05/24/23 Timothy Granda DO [address] [place] [address] PCP - General 05/25/23 Sadia Campo, [place] [address] Foam Dispenser Sheet Metal Operator 08/03/22 06/21/24 documented as of this encounter
--- OUTSIDE RECORDS SUMMARY | 2024-11-28 05:16 | XMS_ITS | Clinical Summary ---
Author Organization [employer] ([place], [place], [place], [place]) Address [address] [place] [address] Care Team Providers Care Lacquer Sizer Name Role Phone [facility], Provider Not In The System Primary [...] Date Dereje rded Speak language other than Canadian at home Not on file 04/12/2023 Want [...] - 1-dose 75+ series) 09/26/2026 Care Teams Lacquer Sizer Relationship Specialty Start Date End Date [facility], Provider Not In The System, [place] [address] PCP - General 04/16/23
--- OUTSIDE RECORDS SUMMARY | 2024-11-28 05:16 | XMS_ITS | Encounter Summary ---
Author Organization [employer] ([place], [place], [place], [place]) Address [address] [place] [address] Care Team Providers Care Patient Service Associate Name Role Phone [facility], Provider Not In The System Primary Care Provider Unavailable Encounter Details Date Type Department Care Team (Late st Contact Info) Description 04/28/2019 Transcribed Document [facility] [place] [facility] [address] ProviderJean-Claude MD [address] [place], [place] [id number] Social History Tobacco Use Types Packs/Day Years Used Date Smoking Tobacco: Never Assessed Comments Unknown Sex and Gender Information Value Date Recorded Sex Assigned at Not on file Legal Sex Female 5:42 PM CDT Gender Identity Not on file Sexual Orientation Not on file documented as of this encounter Miscellaneous Notes * Cerner Conversion Note - Jean-Claude ProviderMD - 04/28/2019 9:47 AM SWEET PICKLED FRUIT MAKER Patient Education Materials Follows: General Anesthesia, Adult, [...] activities are safe for you. ??? Take tesu-xtp-qkiolzj and prescription medicines only as told by [...] 06/25/2001 Document Revised: 11/02/2017 Document Reviewed: 11/02/2017 [employer] Patient Education ? 2019 [employer] Knee Arthroscopy, Care After Refer to [...] activities are safe for you. ??? Perform gylfy-yu-ekcoxp exercises only as directed by your health [...] 03/15/2015 [employer] Interactive Patient Education ? 2018 [employer] Electronically signed by Leslee Olvera Conversion Technical Sales Support Manager Cerner at 07/23/2022 4:28 PM CDT documented in this encounter Plan of Treatment Not on file documented as of this encounter Visit Diagnoses Not on filedocumented in this encounter Care Teams Patient Service Associate Relationship Specialty Start Date End Date Leslee, Provider Not In The System, [place] [address] PCP - General 04/16/23 documented as of this encounter
--- OUTSIDE RECORDS SUMMARY | 2024-11-28 05:16 | XMS_ITS | Encounter Summary ---
Author Organization [employer] ([place], [place], [place], [place]) Address [address] [place] [address] Care Team Providers Care Grading Machine Operator Name Role Phone [facility], Provider Not In The System Primary Care Provider Unavailable Encounter Details Date Type Department Care Team (Late st Contact Info) Description 04/28/2019 Transcribed Document [facility] [place] [address] [place] [address] ProviderJean-Claude MD [address], [place] [id number] Social History Tobacco Use Types Packs/Day Years Used Date Smoking Tobacco: Never Assessed Comments Unknown Sex and Gender Information Value Date Recorded Sex Assigned at Not on file Legal Sex Female 5:42 PM CDT Gender Identity Not on file Sexual Orientation Not on file documented as of this encounter Miscellaneous Notes * Cerner Conversion Note - Historical ProviderMD - 04/28/2019 8:05 AM HEALTH WORKERS [facility] Main OR PACU Summary Primary Physician: MADISON OSPINA MD-ORShantel Finalized Date/Time: 04/28/19 09:40:55 Pt. Name: MOISE ATKINSON/Sex: 1950 Female Med Rec #: [id number] Physician: MADISON OSPINA MD-ORT Financial #: [id number] Pt. Type: O Room/Bed: Admit/Disch: 04/28/19 05:30:00 - Institution: [facility] OR PACU Case Times Entry 1 In PACU I 04/28/19 08:38:00 Ready for PACU 04/28/19 09:33:00 Discharge Discharge from PACU 04/28/19 09:33:00 I Last Modified By: Eduarda Patel Rn Patient Care Bedside 04/28/19 09:40:12 [facility] Main OR PACU Case Times Audit 04/28/19 09:40:12 Travel Pta: SADE Modifier: SADE <+> 1 Ready for PACU Discharge <+> 1 Discharge from PACU I Finalized By: Edurada Patel Rn Patient Care Bedside Document Signatures Signed By: Eduarda Patel Rn Patient Care Bedside 04/28/19 09:40 Electronically signed by May [facility] Conversion Crude Oil Treater Cerner at 07/23/2022 4:28 PM CDT documented in this encounter Plan of Treatment Not on file documented as of this encounter Visit Diagnoses Not on filedocumented in this encounter Care Teams Grading Machine Operator Relationship Specialty Start Date End Date [facility], Provider Not In The System, [place] [address] PCP - General 04/16/23 documented as of this encounter
--- OUTSIDE RECORDS SUMMARY | 2024-11-28 05:16 | XMS_ITS | Encounter Summary ---
Author Organization [facility] Address [address] [place] [address] Care Team Providers Care Grain Elevator Motor Starter Name Role Phone Unavailable Primary Care Provider Unavailabl e Reason for Visit * Reason Onset Date Comments Surgery Scheduling 10/10/2024 Encounter Details Date Type Department Care Team (Late st Contact Info) Description 10/10/[address] [facility] [address] [place] [address] Sharon Paulino MD [address] [place] [address] [address] [place] [address] Surgery Scheduling Social History Tobacco [...] Description 12/04/2024 1:30 PM EDT Office Visit [facility], [address] [place] [address] Sharon Paulino MD [address], [place] [address] Pre-op shoulder 12/15/2024 7:30 AM EDT Hospital Encounter [facility] General Surgery [facility] [place] [address] Sharon Paulino MD [address] [facility] [address] [place] [address] 12/15/2024 7:30 AM EDT - 12/15/2024 10:55 AM EDT Surgery [facility] General Surgery [facility] [place] [address] Sharon Paulino MD [address] [facility] [address] [place] [address] LEFT SHOULDER TOTAL ARTHROPLASTY REVISION TO COURTNEY-ARTHROPLASTY POSSIBLE REVISION TO REVERSE TOTAL SHOULDER REPLACEMENT 12/25/2024 1:30 PM EDT Office Visit [facility], [address] [address] Sharon Paulino MD [address] [facility] [address] [place] [address] post op shoulder Scheduled Procedures Name Priority Associated Diagnoses Date/Ti me SHOULDER TOTAL ARTHROPLASTY REVISION Left shoulder pain 12/15/2024 7:30 AM EDT documented as of this encounter Visit Diagnoses Not on filedocumented in this encounter
--- OUTSIDE RECORDS SUMMARY | 2024-11-28 05:16 | XMS_ITS | Encounter Summary ---
Author Organization [facility] Address [address] [place] [address] Care Team Providers Care Director Instructional Material Name Role Phone Unavailable Primary Care Provider Unavailabl e Reason for Visit * Reason Onset Date Comments Care Coordination 11/21/2024 Nurse navigato r Encounter Details Date Type Department Care Team (Late Contact Info) Description 11/21/2024 Telephone [facility] Orthopedic and Sports Medicine [address] [address] Willa Lan RN Care Coordination [...] Description 12/04/2024 1:30 PM EDT Office Visit [facility] and [facility]opaedic [place], [address] [place], [place] [address] Sharon Paulino MD [address] [place] [address] [address] [place] [address] Pre-op shoulder 12/15/2024 7:30 AM EDT Hospital Encounter [facility] General Surgery [address] [place] [address] Sharon Paulino MD [address] [facility] [address] [place] [address] 12/15/2024 7:30 AM EDT - 12/15/2024 10:55 AM EDT Surgery [facility] General Surgery [address] [place] [address] Sharon Paulino MD [address] [employer] [address] [place] [address] LEFT SHOULDER TOTAL ARTHROPLASTY REVISION TO COURTNEY-ARTHROPLASTY POSSIBLE REVISION TO REVERSE TOTAL SHOULDER REPLACEMENT 12/25/2024 1:30 PM EDT Office Visit [facility], [place] [address] Sharon Paulino MD [address] [facility] [place] [address] post op shoulder Scheduled Procedures Name Priority Associated Diagnoses Date/Ti me SHOULDER TOTAL ARTHROPLASTY REVISION Left shoulder pain 12/15/2024 7:30 AM EDT documented as of this encounter Visit Diagnoses Not on filedocumented in this encounter
--- OUTSIDE RECORDS SUMMARY | 2024-11-28 05:16 | XMS_ITS | Encounter Summary ---
Author Organization [employer] ([place], [place], [place], [place]) Address [address] [place] [address] Care Team Providers Care Management Trainee Name Role Phone [facility], Provider Not In The System Primary Care Provider Unavailable Encounter Details Date Type Department Care Team (Late st Contact Info) Description 04/28/2019 Transcribed Document [facility] [place] [address] ProviderJean-Claude MD [address], [place] [id number] Social History Tobacco Use Types Packs/Day Years Used Date Smoking Tobacco: Never Assessed Comments Unknown Sex and Gender Information Value Date Recorded Sex Assigned at Not on file Legal Sex Female 5:42 PM CDT Gender Identity Not on file Sexual Orientation Not on file documented as of this encounter Miscellaneous Notes * Cerner Conversion Note - Historical ProviderMD - 04/28/2019 7:06 AM ENVELOPE FOLD OPERATOR Pre Procedure Adult Entered On: 04/28/2019 7:12 EST Performed On: 04/28/2019 7:06 EST by ISAMAR MORRISON RN Height and Weight, Clinical Dosing Height Source : Stated Height Entry Format : [place] Height, Feet : 5 ft(Converted to: 152 cm, 60 Inch) Height, Inches : 2 Inch(Converted to: 0 ft 2 Inch, 5.08 cm) Clinical Height : 157.48 cm Weight Source : Standing scale Weight Entry Format : [place] Clinical Dosing Weight : 85 kg Weight, Pounds : 187 lb Body Surface Area (BSA) : 1.86 m2 Body Mass Index : 34.3 kg/m2 (HI) [place] Body Weight : 50 kg ISAMAR MORRISON [...] ISAMAR MORRISON RN - 04/28/2019 7:06 EST [place] Suicide Severity Rating Scale (C-SSRS) CSSRS Past [...] Obtained From : Patient Primary Language : Azeri Preferred Communication Mode : Verbal Communication Barrier [...] Scale Risk Level : 0-24 Low Risk Debary Fall Interventions : Bed in low position, [...] on filedocumented in this encounter Care Teams Management Trainee Relationship Specialty Start Date End Date Leslee, Provider Not In The System, [place] [address] PCP - General 04/16/23 documented as of this encounter
--- OUTSIDE RECORDS SUMMARY | 2024-11-28 05:16 | XMS_ITS | Encounter Summary ---
Author Organization [employer] ([place], [place], [place], [place]) Address [address] [place] [address] Care Team Providers Care Leather Worker Name Role Phone Sj, Provider Not In The System Primary Care Provider Unavailable Encounter Details Date Type Department Care Team (Late st Contact Info) Description 04/28/2019 Transcribed Document [facility] [place] [facility] [place] [address] ProviderJean-Claude MD [address] [place], [place] [id number] Social History Tobacco Use Types Packs/Day Years Used Date Smoking Tobacco: Never Assessed Comments Unknown Sex and Gender Information Value Date Recorded Sex Assigned at Not on file Legal Sex Female 5:42 PM CDT Gender Identity Not on file Sexual Orientation Not on file documented as of this encounter Miscellaneous Notes * Cerner Conversion Note - Jean-Claude ProviderMD - 04/28/2019 9:04 AM TEMPLATE LAYOUT WORKER DATE OF PROCEDURE: 04/28/2019 SURGEON: Timothy Foster [...] to the recovery room in satisfactory condition. /[id number] MD MICHAEL Trujillo/AQ / MICHAEL / MODL /[id number] Electronically signed by Leslee Olvera Conversion Driver Education Road Instructor Cerner at 07/23/2022 4:25 PM CDT documented in this encounter Plan of Treatment Not on file documented as of this encounter Visit Diagnoses Not on filedocumented in this encounter Care Teams Leather Worker Relationship Specialty Start Date End Date Leslee, Provider Not In The System, [place] [address] PCP - General 04/16/23 documented as of this encounter
--- OUTSIDE RECORDS SUMMARY | 2024-11-28 05:16 | XMS_ITS | Encounter Summary ---
Author Organization [employer] ([place], [place], [place], [place]) Address [address] [place] [address] Care Team Providers Care Agricultural Engineering Technicians Name Role Phone [facility], Provider Not In The System Primary Care Provider Unavailable Encounter Details Date Type Department Care Team (Late st Contact Info) Description 04/28/2019 Transcribed Document [facility] [place] [facility] [place] [address] ProviderJean-Claude MD [facility] [place] [id number] Social History Tobacco Use Types Packs/Day Years Used Date Smoking Tobacco: Never Assessed Comments Unknown Sex and Gender Information Value Date Recorded Sex Assigned at Not on file Legal Sex Female 5:42 PM CDT Gender Identity Not on file Sexual Orientation Not on file documented as of this encounter Miscellaneous Notes * Cerner Conversion Note - Historical ProviderMD - 04/28/2019 8:29 AM SCHOOL BUS INSPECTOR Pain Assessment Entered On: 04/28/2019 9:06 EST [...] on filedocumented in this encounter Care Teams Agricultural Engineering Technicians Relationship Specialty Start Date End Date Leslee, Provider Not In The System, [place] [address] PCP - General 04/16/23 documented as of this encounter
--- OUTSIDE RECORDS SUMMARY | 2024-11-28 05:16 | XMS_ITS | Encounter Summary ---
Author Organization [employer] ([place], [place], [place], [place]) Address [address] [place] [address] Care Team Providers Care Loan Review Manager Name Role Phone [facility], Provider Not In The System Primary Care Provider Unavailable Encounter Details Date Type Department Care Team (Late st Contact Info) Description 04/28/2019 Transcribed Document [facility] [place] [facility] [place] [address] ProviderJean-Claude MD [address] [place], [place] [id number] Social History Tobacco Use Types Packs/Day Years Used Date Smoking Tobacco: Never Assessed Comments Unknown Sex and Gender Information Value Date Recorded Sex Assigned at Not on file Legal Sex Female 5:42 PM CDT Gender Identity Not on file Sexual Orientation Not on file documented as of this encounter Miscellaneous Notes * Cerner Conversion Note - Historical ProviderMD - 04/28/2019 8:05 AM SUPPORT TECHNICIAN ADI Main OR IntraOp Summary Primary Physician: MADISON OSPINA MD-ORT Finalized Date/Time: 04/28/19 08:39:15 Pt. Name: FARRAH ATKINSON D.O.B./Sex: 1950 Female Med Rec #: [id number] Physician: MADISON OSPINA MD-ORT Financial #: [id number] Pt. Type: O Room/Bed: Admit/Disch: 04/28/19 05:30:00 - Institution: [facility] [place] Intra Case Attendance Entry 1 Entry 2 Entry 3 Case Attendee MADISON OSPINA MD-ORT WICKER, KAREN KIM, ARIA WATERS RN Role Performed Surgeon/Proceduralist, ELECTRICAL SOFTWARE ENGINEER/Nurse Experimental Machinist Fire Prevention Inspector, First First Time In 04/28/19 07:39:00 04/28/19 [...] [facility] IntraOp Case Attendance Audit 04/28/19 08:34:51 Ship Carpenter: LONGGA Modifier: LONGGA 1 <+> Time Out 1 <*> Procedure Knee Arthroscopy 2 <+> Time Out 2 <*> Procedure Knee Arthroscopy 3 <+> Time Out 3 <*> Procedure Knee Arthroscopy 4 <+> Time Out 4 <*> Procedure Knee Arthroscopy 5 <+> Time Out 5 <*> Procedure Knee Arthroscopy 04/28/19 08:07:14 Ship Carpenter: LONGGA Modifier: LONGGA <+> 1 Time In [...] SJE IntraOp Case Times Audit 04/28/19 08:34:50 Ship Carpenter: LONGGA Modifier: LONGGA <+> 1 Out Room Time <+> 1 Stop Time 04/28/19 08:31:56 Ship Carpenter: LONGGA Modifier: LONGGA <+> 1 Stop Time [...] IntraOp Departure from OR Audit 04/28/19 08:32:27 Ship Carpenter: EMBER Modifier: LONGGA 1 <*> Patient Transport [...] RN 04/28/19 08:15:47 SJE IntraOp General Case Supportive Employment Case Manager 1 Case Information OR OR 05 SJE Case Level 1 Room Verified Yes Wound Class I - Clean Specialty SN Orthopedic Anesthesia Type General ASA Class 3 Diagnosis Preop Diagnosis PATELLAR CHONDROMALACIA RIGHT KNEE Postop Same As Preop No Postop Diagnosis DICTATED BY Mary Last Modified By: ARIA MELCHOR RN 04/28/19 08:15:39 SJE IntraOp General Case Data Audit 04/28/19 08:15:39 Ship Carpenter: EMBER Modifier: LONGGA <+> 1 ASA Class [...] Entry 1 Medication/Irrigant epinephrine 30mg/30ml vial - [id number] Route of 3ML/3000ML OF NS Administration IRRIGATION [...] SJE IntraOp Patient Positioning Audit 04/28/19 08:17:49 Ship Carpenter: LONGGA Modifier: LONGGA 1 <*> Procedure Knee [...] SJE IntraOp Surgical Procedures Audit 04/28/19 08:31:50 Ship Carpenter: LONGGA Modifier: LONGGA 1 <*> Procedure Knee Arthroscopy 1 <+> Stop 04/28/19 08:27:35 Ship Carpenter: LONGGA Modifier: LONGGA 1 <*> Procedure Knee Arthroscopy 1 <*> Additional Procedure Description RIGHT KNEE ARTHROSCOPY FOR RETROPATELLAR CHONDROPLASTY AND PARTIAL MENISCECTOMY 04/28/19 08:21:54 Ship Carpenter: LONGGA Modifier: LONGGA 1 <*> Procedure Knee Arthroscopy 1 <*> Additional Procedure Description LEFT KNEE ARTHROSCOPY FOR RETROPATELLAR CHONDROPLASTY AND PARTIAL MENISCECTOMY SJE IntraOp Temp Regulation Devices Entry 1 Temp Regulation Temperature Forced Air Warming Regulation Device device Temperature 4765 Regulation Device Serial/Unit Number Temperature Upper body Regulation Site Temperature FARRAH MANE, ELECTRICAL SOFTWARE ENGINEER Regulation Device Applied by Last Modified By: [...] 08:31:38 SJE IntraOp Tourniquet Audit 04/28/19 08:31:38 Ship Carpenter: EMBER Modifier: EMBER <+> 1 Stop Time Case Comments <None> Finalized By: ARIA MELCHOR, RN Document Signatures Signed By: ARIA MELCHOR RN 04/28/19 08:39 Electronically signed by May [facility] Conversion Personal Injury Specialist Cerner at 07/23/2022 4:21 PM CDT documented in this encounter Plan of Treatment Not on file documented as of this encounter Visit Diagnoses Not on filedocumented in this encounter Care Teams Loan Review Manager Relationship Specialty Start Date End Date Leslee, Provider Not In The System, [place] [address] PCP - General 04/16/23 documented as of this encounter
--- OUTSIDE RECORDS SUMMARY | 2024-11-28 05:16 | XMS_ITS | Encounter Summary ---
Author Organization [email or web address] ([place], [place], [place], [place]) Address [address] [place] [address] Care Team Providers Care Gasoline Finisher Name Role Phone [facility], Provider Not In The System Primary Care Provider Unavailable Encounter Details Date Type Department Care Team (Late st Contact Info) Description 04/28/2019 Transcribed Document [facility] [place] [address] [place] [address] ProviderJean-Claude MD [address] [place], [place] [id number] Social History Tobacco Use Types Packs/Day Years Used Date Smoking Tobacco: Never Assessed Comments Unknown Sex and Gender Information Value Date Recorded Sex Assigned at Not on file Legal Sex Female 5:42 PM CDT Gender Identity Not on file Sexual Orientation Not on file documented as of this encounter Miscellaneous Notes * Cerner Conversion Note - Historical ProviderMD - 04/28/2019 8:29 AM PRINCIPAL SECURITY ARCHITECT Pain Assessment Entered On: 04/28/2019 9:28 EST [...] on filedocumented in this encounter Care Teams Gasoline Finisher Relationship Specialty Start Date End Date Sjh, Provider Not In The System, [place] [address] PCP - General 04/16/23 documented as of this encounter
--- OUTSIDE RECORDS SUMMARY | 2024-11-28 05:16 | XMS_ITS | Encounter Summary ---
Author Organization [employer] Address [address], [address] [place] [address] Care Team Providers Care Director Digital Name Role Phone Unavailable Primary Care Provider Unavailabl e Reason for Visit * Reason Onset Date Comments Surgery Scheduling 11/20/2024 LT SHDLR Encounter Details Date Type Department Care Team (Late Contact Info) Description 11/20/2024 Telephone [facility] [address] [place] [phone] [place] [address] [place] [address] [address] [place] [address] Surgery Scheduling (LT SHDLR) Social [...] Description 12/04/2024 1:30 PM EDT Office Visit [facility] Sports Medicine and Orthopaedic [place], [address] [address] Sharon Paulino MD [email or web address] [place] [address] Pre-op shoulder 12/15/2024 7:30 AM EDT Hospital Encounter [facility] General Surgery [address] [place] [address] Sharon Paulino MD [email or web address] [place] [address] 12/15/2024 7:30 AM EDT - 12/15/2024 10:55 AM EDT Surgery [facility] General Surgery [address] [place] [address] Sharon Paulino MD [email or web address] [facility] [address] [place] [address] LEFT SHOULDER TOTAL ARTHROPLASTY REVISION TO COURTNEY-ARTHROPLASTY POSSIBLE REVISION TO REVERSE TOTAL SHOULDER REPLACEMENT 12/25/2024 1:30 PM EDT Office Visit [facility] [place], [address] [phone] Sharon Paulino MD [address] [facility] [address] [place] [address] post op shoulder Scheduled Procedures Name Priority Associated Diagnoses Date/Ti me SHOULDER TOTAL ARTHROPLASTY REVISION Left shoulder pain 12/15/2024 7:30 AM EDT documented as of this encounter Visit Diagnoses Not on filedocumented in this encounter
--- OUTSIDE RECORDS SUMMARY | 2024-11-28 05:16 | XMS_ITS | Clinical Summary ---
Author Organization [facility] Address [address] [place] [address] Phone Care Team Providers Care Director Communications Name Role Phone Unavailable Primary Care Provider [...] Insurance MEDICARE [place] PART A AND B [employer]
--- OUTSIDE RECORDS SUMMARY | 2024-11-28 05:16 | XMS_ITS | Encounter Summary ---
Author Organization [employer] ([place], [place], [place], [place]) Address [address] [place] [address] Care Team Providers Care Dye Maker Name Role Phone [facility], Provider Not In The System Primary Care Provider Unavailable Encounter Details Date Type Department Care Team (Late st Contact Info) Description 04/28/2019 Transcribed Document [facility] [place] [address] [place] [address] ProviderJean-Claude MD [address] [place], [place] [phone] Social History Tobacco Use Types Packs/Day Years Used Date Smoking Tobacco: Never Assessed Comments Unknown Sex and Gender Information Value Date Recorded Sex Assigned at Not on file Legal Sex Female 5:42 PM CDT Gender Identity Not on file Sexual Orientation Not on file documented as of this encounter Miscellaneous Notes * Cerner Conversion Note - Historical ProviderMD - 04/28/2019 8:05 AM POLICE SERGEANT [facility]I Main OR PostOp Summary Primary Physician: MADISON OSPINA MD-ORT Finalized Date/Time: 04/28/19 10:18:29 Pt. Name: MOISE ATKINSON/Sex: 1950 Female Med Rec #: [id number] Physician: MADISON OSPINA MD-ORT Financial #: [id number] Pt. Type: O Room/Bed: Admit/Disch: 04/28/19 05:30:00 - [place] [facility] [place] PostOp Case Times Entry 1 In PACU II 04/28/19 09:36:00 Ready for PACU II 04/28/19 10:15:00 Discharge Discharge from PACU 04/28/19 10:15:00 II Last Modified By: Shanel Conrad RN 04/28/19 10:18:24 Finalized By: Shanel Conrad, RN Document Signatures Signed By: Shanel Conrad RN 04/28/19 10:18 Electronically signed by May [facility] Conversion Box Maker Cerner at 07/23/2022 4:27 PM CDT documented in this encounter Plan of Treatment Not on file documented as of this encounter Visit Diagnoses Not on filedocumented in this encounter Care Teams Dye Maker Relationship Specialty Start Date End Date [facility], Provider Not In The System, [place] [address] PCP - General 04/16/23 documented as of this encounter
--- OUTSIDE RECORDS SUMMARY | 2024-11-28 05:16 | XMS_ITS | Encounter Summary ---
Author Organization [employer] [facility] Address [address] [place] [address] Care Team Providers Care Sheet Metal Lay Out Worker Name Role Phone Unavailable Primary Care Provider Unavailabl e Reason for Visit * Reason Onset Date Comments IMAGING 09/05/2024 Encounter Details Date Type Department Care Team (Late st Contact Info) Description 09/05/2024 Telephone [facility] [address] [place] [address] Sharon Paulino MD [address] [place] [address] [address] [place], [place] [phone] IMAGING Social History Tobacco Use Types Packs/Day [...] PM EDT Office Visit [facility], [place] [phone] Sharon Paulino MD [address], [place] [phone] Pre-op shoulder 12/15/2024 7:30 AM EDT Hospital Encounter [facility] General Surgery [address] [place] [address] Sharon Paulino MD [address] [place] [address] 12/15/2024 7:30 AM EDT - 12/15/2024 10:55 AM EDT Surgery [facility] General Surgery [facility] [address] [place] [address] Sharon Paulino MD [address] [place] [address] LEFT SHOULDER TOTAL ARTHROPLASTY REVISION TO COURTNEY-ARTHROPLASTY POSSIBLE REVISION TO REVERSE TOTAL SHOULDER REPLACEMENT 12/25/2024 1:30 PM EDT Office Visit [facility], [address] [address] Sharon Paulino MD [address] [place] [address] post op shoulder Scheduled Procedures Name Priority Associated Diagnoses Date/Ti me SHOULDER TOTAL ARTHROPLASTY REVISION Left shoulder pain 12/15/2024 7:30 AM EDT documented as of this encounter Visit Diagnoses Not on filedocumented in this encounter
--- OUTSIDE RECORDS SUMMARY | 2024-11-28 05:16 | XMS_ITS | Encounter Summary ---
Author Organization [employer] [facility] Address [address] [place] [address] Care Team Providers Care Electrical Troubleshooter Name Role Phone Unavailable Primary Care Provider Unavailabl e Encounter Details Date Type Department Care Team (Latest Contact Info) Description 11/05/2024 Prep for Procedure [facility] Orthopedic and Sports Medicine [address] [phone] Laisha Galvan MA History of total replacement [...] Description 12/04/2024 1:30 PM EDT Office Visit [facility], [address] [address] Sharon Paulino MD [address] [place] [address] [address] [place] [address] Pre-op shoulder 12/15/2024 7:30 AM EDT Hospital Encounter [facility] General Surgery [address] [place] [address] Sharon Paulino MD [address] [facility] [address] [place] [address] 12/15/2024 7:30 AM EDT - 12/15/2024 10:55 AM EDT Surgery [facility] General Surgery [address] [place] [address] Sharon Paulino MD [address] [facility] [address] [place] [address] LEFT SHOULDER TOTAL ARTHROPLASTY REVISION TO COURTNEY-ARTHROPLASTY POSSIBLE REVISION TO REVERSE TOTAL SHOULDER REPLACEMENT 12/25/2024 1:30 PM EDT Office Visit [facility] Orthopa[facility] Center, [place] [address] Sharon Paulino MD [address] [facility] [address] [place] [address] post op shoulder Scheduled Procedures Name Priority [...]
--- OUTSIDE RECORDS SUMMARY | 2024-11-28 05:16 | XMS_ITS | Referral Summary ---
Author Organization [employer] ([place], [place], [place], [place]) Address [address] [place] [address] Care Team Providers Care Livestock Inspector Name Role Phone [facility], Provider [...] Date Dereje rded Speak language other than Finnish at home Not on file 04/12/2023 Want [...] of Treatment Not on file Care Teams Livestock Inspector Relationship Specialty Start Date End Date [facility], Provider Not In The System, [place] [address] PCP - General 04/16/23
--- OUTSIDE RECORDS SUMMARY | 2024-11-28 05:16 | XMS_ITS | Encounter Summary ---
Author Organization [employer] ([place], [place], [place], [place]) Address [address] [place] [address] Care Team Providers Care Marine Propulsion Technician Name Role Phone [facility], Provider Not In The System Primary Care Provider Unavailable Encounter Details Date Type Department Care Team (Late st Contact Info) Description 04/28/2019 Transcribed Document [facility] [place] [address] [place] [address] ProviderJean-Claude MD [address] [place], [place] [phone] Social History Tobacco Use Types Packs/Day Years Used Date Smoking Tobacco: Never Assessed Comments Unknown Sex and Gender Information Value Date Recorded Sex Assigned at Not on file Legal Sex Female 5:42 PM CDT Gender Identity Not on file Sexual Orientation Not on file documented as of this encounter Miscellaneous Notes * Cerner Conversion Note - Historical ProviderMD - 04/28/2019 10:01 AM 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 may advance diet as tolerated. May take Wheatland 10-325mg 1 tablet by mouth every 4-6 [...] Comments Appointment has been made Where: [address] [facility] [address] [place] [address]- Medications What How Much When Instructions Next [...] activities are safe for you. ??? Take yjpi-ixp-vgzndwr and prescription medicines only as told by [...] 06/25/2001 Document Revised: 11/02/2017 Document Reviewed: 11/02/2017 [employer] Interactive Patient Education ?? 2019 [employer] Knee Arthroscopy, Care After Refer to [...] activities are safe for you. ??? Perform hyuyr-me-twphja exercises only as directed by your health [...] 10/06/2005 Document Revised: 08/18/2016 Document Reviewed: 03/15/2015 [employer] Interactive Patient Education ?? 2018 [employer] acetaminophen and hydrocodone (a SEET a MIN oh fen and ladonna droe KOE done) Hycet, Lorcet, Wheatland, Verdrocet, Vicodin, Xodol, Zamicet What is the [...] may report side effects to FDA at 9-962-GVC-0146. What other drugs will affect acetaminophen and [...] affect acetaminophen and hydrocodone, including prescription and swtg-soq-skuwknm medicines, vitamins, and herbal products. Not all [...] to ensure that the information provided by [employer]. ('[employer]') is accurate, up-to-date, and complete, but no guarantee is made to that effect. Drug information contained herein may be time sensitive. [employer] information has been compiled for use by healthcare practitioners and consumers in the [place] and therefore [employer] does not warrant that uses outside of the [place] are appropriate, unless specifically indicated otherwise. [employer] drug information does not endorse drugs, diagnose patients or recommend therapy. [employer] drug information is an informational resource designed [...] effective or appropriate for any given patient. [employer] does not assume any responsibility for any aspect of healthcare administered with the aid of information [employer] provides. The information contained herein is not intended to cover all possible uses, directions, precautions, warnings, drug interactions, allergic reactions, or adverse effects. If you have questions about the drugs you are taking, check with your doctor, nurse or pharmacist. Copyright 8615-5545 [employer] Version: 15.02. Revision Date: 02/04/2018. Emergency Awareness [...] Assistance with quitting is available by contacting 6-135-CBDJ-NOW. This is a free resource providing counseling, [...] was given the opportunity to ask questions. Patient/Law Librarian Name: Patient/Law Librarian Signature: Relationship to Patient: Clinician/Hospital Law Librarian Signature: Date: documented in this encounter Plan of Treatment Not on file documented as of this encounter Visit Diagnoses Not on filedocumented in this encounter Care Teams Marine Propulsion Technician Relationship Specialty Start Date End Date Deejay, Provider Not In The System, [place] [address] PCP - General 04/16/23 documented as of this encounter
--- OUTSIDE RECORDS SUMMARY | 2024-11-28 05:16 | XMS_ITS | Encounter Summary ---
Author Organization [employer] ([place], [place], [place], [place]) Address [address] [place] [address] Care Team Providers Care Scientific Software Developer Name Role Phone [facility], Provider Not In The System Primary Care Provider Unavailable Encounter Details Date Type Department Care Team (Late st Contact Info) Description 04/28/2019 Transcribed Document [facility] Family Medicine [address] [place] [address] ProviderJean-Claude MD [address], [place] [id number] Social History Tobacco Use Types Packs/Day Years Used Date Smoking Tobacco: Never Assessed Comments Unknown Sex and Gender Information Value Date Recorded Sex Assigned at Not on file Legal Sex Female 5:42 PM CDT Gender Identity Not on file Sexual Orientation Not on file documented as of this encounter Miscellaneous Notes * Cerner Conversion Note - Historical ProviderMD - 04/28/2019 9:51 AM 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 may advance diet as tolerated. May take [place] 10-325mg 1 tablet by mouth every 4-6 [...] Within 2 to 3 days Where: [address] [place] [address]- Medications What How Much When Instructions Next [...] activities are safe for you. ??? Take odhc-ddn-wutvmlb and prescription medicines only as told by [...] 06/25/2001 Document Revised: 11/02/2017 Document Reviewed: 11/02/2017 [employer] Interactive Patient Education ?? 2019 [employer] Inc. Knee Arthroscopy, Care After Refer to [...] activities are safe for you. ??? Perform irbnt-bv-fvlsiz exercises only as directed by your health [...] 10/06/2005 Document Revised: 08/18/2016 Document Reviewed: 03/15/2015 [employer] Interactive Patient Education ?? 2018 Multistat. acetaminophen and hydrocodone (a SEET a MIN oh fen and ladonna droe KOE done) Hycet, Lorcet, [place], Verdrocet, Vicodin, Xodol, Zamicet What is the [...] may report side effects to FDA at 7-186-HUH-7298. What other drugs will affect acetaminophen and [...] affect acetaminophen and hydrocodone, including prescription and dejn-qql-zznccja medicines, vitamins, and herbal products. Not all [...] to ensure that the information provided by [employer]. ('[employer]') is accurate, up-to-date, and complete, but no guarantee is made to that effect. Drug information contained herein may be time sensitive. [employer] information has been compiled for use by healthcare practitioners and consumers in the [place] and therefore [employer] does not warrant that uses outside of the [place] are appropriate, unless specifically indicated otherwise. [employer]s drug information does not endorse drugs, diagnose patients or recommend therapy. [employer] drug information is an informational resource designed [...] effective or appropriate for any given patient. [employer] does not assume any responsibility for any aspect of healthcare administered with the aid of information [employer] provides. The information contained herein is not intended to cover all possible uses, directions, precautions, warnings, drug interactions, allergic reactions, or adverse effects. If you have questions about the drugs you are taking, check with your doctor, nurse or pharmacist. Copyright 3010-6026 [employer]. Version: 15.02. Revision Date: 02/04/2018. Emergency Awareness [...] Assistance with quitting is available by contacting 7-926-DDHH-NOW. This is a free resource providing counseling, [...] was given the opportunity to ask questions. Patient/Buildings And Grounds Coordinator Name: Patient/Buildings And Grounds Coordinator Signature: Relationship to Patient: Clinician/Hospital Buildings And Grounds Coordinator Signature: Date: documented in this encounter Plan of Treatment Not on file documented as of this encounter Visit Diagnoses Not on filedocumented in this encounter Care Teams Scientific Software Developer Relationship Specialty Start Date End Date Leslee, Provider Not In The System, [place] [address] PCP - General 04/16/23 documented as of this encounter
--- OUTSIDE RECORDS SUMMARY | 2024-11-28 05:17 | XMS_ITS | Clinical Summary ---
Author Organization Healthcare Address [address] [place] [address] Care Team Providers Care Visiting Housekeeper Name Role Phone Timothy Granda DO Primary Care Provider [phone] Allergies Active Allergy Reactions Criticality Noted Date [...] preservative free 02/14/2015 Influenza, trivalent, adjuvanted 12/22/2019 [employer] COVID-19 Vaccine (Blue Cap) 18+ 06/10/19 Moderna COVID-19 Vaccine (Re d Cap) 12+ years 07/18/2021,01/27/2021 Moderna COVID-19 Vaccine Bivalent 6months+ 01/25 PPD Skin Test (TB Skin Test) 09/04/2022 Inbilin Covid-19 Vaccine 12y+ , Mahesh Protein, PF, [...] place to sleep or slept in a long-term (including now)? Patient refused 07/23/2023 CAGE ASSESSMENT [...] drink first t mini in the morning (EYE-CONSTRUCTION PRODUCER) to steady your nerves or to get [...] 02/14/2015 [facility] Annual Wellness (AWV) 03/13/2023 03/13/2022 [id number] Vaccine ( season) 2023 02/09/2023, 01/25/2022, 07/18/2021, [...] Antigen Negative Negative 08/02/2023 7:49 PM EDT [facility] Hepatitis A Antibody IgM Negative Negative 08/02/2023 7:49 PM EDT [facility] Hepatitis B Core Antibody IgM Negative Negative 08/02/2023 7:49 PM EDT [facility] Blood Venous blood specimen / Unknown Venipuncture / Unknown 08/02/2023 2:56 PM EDT 08/02/2023 3:22 PM EDT Narrative [facility] - 08/02/2023 7:49 PM [...] ORDERABLES Final R esult Performing Organization Address City/State/[facility] Co de Phone Number [facility] [address] [place] [address] * Flexible Sigmoidoscopy (02/21/2023 10:25 AM EST) [...] Page MD Adam Rooks, MD Proceduralist residential construction instructor Adama Montes CRNA CRNA Harris, Kristi A, RN Endo Nurse Butch Little MD Fellow Tete Whitmore Endo Test Deskman Preprocedure A history and physical has been [...] of bowel preparation was evaluated using the Wynot Bowel Preparation Scale with scores of: left [...] of bowel preparation was evaluated using the [place] Bowel Preparation Scale with scores of: right [...] Most Recently Relevant to Health Maintenance Insurance [facility] Member Subscriber Plan / Payer (Ef fective 2013-Present) Name:Farrah Atkinson Member ID:[id number] Relation to Subscriber:Self Name:Farrah Atkinson Subscriber ID:[id number] Payer ID:MEDICARE Group ID:Not on file Type:Medicare Address: [place] [phone] Advance Directives * Full Code (Latest Code [...] Patient has decision-making capacity? Yes Care Teams Visiting Housekeeper Relationship Specialty Start Date End Date Timothy Granda DO [address] [place] [id number] PCP - General 05/25/23
--- NOTE | 2024-11-28 05:18 | ECG_ITS ---
APPROVED REPORT Exam: Resting ECG HR:99 bpm ECG Measurements Heart Rate 99 AXES NH 145 P 72 QRSd 82 QRS 68 QT 337 T 67 QTc 393 Conclusion SINUS RHYTHM NONSPECIFIC ST & T-WAVE ABNORMALITY BORDERLINE ECG UNCONFIRMED REPORT Electronically signed by : ZHANE WOLFE, 12/01/2024 05:06:06
--- NOTE | 2024-11-28 05:18 | PC.NURSE ---
Pt returned to the ED at MDs request Troponin was elevated so returned for recheck Skin pink warm and dry Resp full and easy Speech clear and appropriate Pt in ST per continuous heart monitor. Pt denies chest pain
[2024-11-28 05:36] VITALS: BP 122/83; PULSE 93; RESP 9; O2SAT 90
--- NOTE | 2024-11-28 05:51 | HMH.EDGENADL ---
Discharge Plan Disposition Patient Disposition: Home, Self-Care Prescriptions Prescriptions: No Action cholecalciferol (vitamin D3) 62.5 mcg (2,500 unit) capsule 62.5 mcg PO DAILY 90 Days Qty: 90 2RF promethazine 12.5 mg tablet 12.5 mg PO TID clonidine HCl 0.1 mg tablet 0.1 mg PO PRN amitriptyline 50 mg tablet 50 mg PO HS Qty: 30 12RF Rx Instructions: Please take 1 tablet p.o. nightly dicyclomine 10 mg capsule 10 mg PO TID PRN (Reason: abdominal pain) Qty: 90 5RF Xifaxan 550 mg tablet 550 mg PO TID Qty: 42 0RF aripiprazole 2 mg tablet 2 mg PO DAILY ondansetron 4 mg tablet,disintegrating 4 mg PO PRN ciclopirox 0.77 % gel 1 applic topical ONCE 90 Days Qty: 100 2RF Rx Instructions: Apply daily to affected toenail. Smooth with emery board weekly. amlodipine 5 mg tablet 5 mg PO HS Qty: 90 4RF fluticasone propion-salmeterol [Advair Diskus] 100-50 mcg/dose blister with device 1 inh inhalation BID Qty: 60 4RF Dulera 200-5 mcg/actuation HFA aerosol inhaler 2 puff inhalation BID Qty: 13 2RF duloxetine 60 mg capsule,delayed release(DR/EC) See Rx Instructions .ROUTE .COMPLEX Qty: 180 1RF Dose Instruction: TAKE 2 CAPSULES BY MOUTH ONCE DAILY Rx Instructions: TAKE 2 CAPSULES BY MOUTH ONCE DAILY estradiol 0.01 % (0.1 mg/gram) cream 1 appful vaginal DAILY PRN (Reason: leakage) Qty: 42.5 2RF ferrous sulfate [FeroSul] 325 mg (65 mg iron) tablet See Rx Instructions .ROUTE .COMPLEX Qty: 30 2RF Dose Instruction: TAKE 1 TABLET BY MOUTH ONCE DAILY Rx Instructions: TAKE 1 TABLET BY MOUTH ONCE DAILY ergocalciferol (vitamin D2) 1,250 mcg (50,000 unit) capsule 1,250 mcg PO WEEKLY Qty: 4 1RF benzonatate 100 mg capsule 100 mg PO TID PRN (Reason: cough) Qty: 30 1RF sulfamethoxazole-trimethoprim 400-80 mg tablet See Rx Instructions .ROUTE .COMPLEX Qty: 30 0RF Dose Instruction: TAKE 1 TABLET BY MOUTH ONCE DAILY WITH WATER Rx Instructions: TAKE 1 TABLET BY MOUTH ONCE DAILY WITH WATER acyclovir 400 mg tablet See Rx Instructions .ROUTE .COMPLEX Qty: 60 2RF Dose Instruction: TAKE 1 TABLET BY MOUTH 2 (TWO) TIMES A DAY. Rx Instructions: TAKE 1 TABLET BY MOUTH 2 (TWO) TIMES A DAY. losartan 50 mg tablet See Rx Instructions .ROUTE .COMPLEX Qty: 135 0RF Dose Instruction: TAKE 1 & 1/2 TABLETS BY MOUTH ONCE DAILY Rx Instructions: TAKE 1 & 1/2 TABLETS BY MOUTH ONCE DAILY levothyroxine 25 mcg tablet See Rx Instructions .ROUTE .COMPLEX Qty: 90 0RF Dose Instruction: TAKE 1 TABLET BY MOUTH ONCE DAILY FOR HYPOTHYROIDISM Rx Instructions: TAKE 1 TABLET BY MOUTH ONCE DAILY FOR HYPOTHYROIDISM terbinafine HCl 250 mg tablet 250 mg PO DAILY 90 Days Qty: 90 0RF atorvastatin 40 mg tablet 40 mg PO DAILY Qty: 90 3RF furosemide 40 mg tablet See Rx Instructions .ROUTE .COMPLEX Qty: 30 0RF Dose Instruction: TAKE 1 TABLET BY MOUTH DAILY NEEDED FOR SWELLING Rx Instructions: TAKE 1 TABLET BY MOUTH DAILY NEEDED FOR SWELLING tizanidine 4 mg tablet See Rx Instructions .ROUTE .COMPLEX Qty: 90 0RF Dose Instruction: TAKE 1 TABLET BY MOUTH THREE TIMES DAILY NEEDED FOR MUSCLE SPASTICITY Rx Instructions: TAKE 1 TABLET BY MOUTH THREE TIMES DAILY NEEDED FOR MUSCLE SPASTICITY oxycodone 10 mg tablet 10 mg PO Q4H MDD No> 6/day PRN (Reason: pain) Qty: 90 0RF hydromorphone 4 mg tablet 4 mg PO Q4-6H PRN (Reason: pain) Qty: 60 0RF diphenoxylate-atropine 2.5-0.025 mg tablet 1 tab PO TID 90 Days Qty: 270 3RF Referrals Follow up/Referrals: Connor Gomez MD [Primary Care Provider, Family Practice] - See instructions Activity Restrictions/Add. Instructions Additional Instructions/Restrictions: Please follow-up with your primary care provider. Please return to the emergency department if you develop any new or worsening symptoms or become concerned for your health. Clinical Impressions Clinical Impression: Hypertensive urgency Print Language Print Language: Austrian Discharge ED Provider: Manjit Barahona Adult [facility] General Chief complaint: Chest Pain Stated complaint: blood draw Time Seen by Provider: 11/28/24 05:10 Mode of Arrival: Ambulatory Source of Information: Patient Description of Symptoms (Recalled from ER Triage Doc. by RN): troponin from previous visit elevated MD wants recheck History of Present Illness HPI narrative: 74-year-old female with history of hypertension returns to the ER for recheck. See note from a few hours ago for further details. In short, patient presented initially for persistent hypertension over 200 systolic. Blood work, EKG and chest x-ray were unremarkable and patient's blood pressure came down below 200 systolic with minimal intervention and patient ari asymptomatic. Unfortunately we were waiting for an unknown period of time of the troponin and after discussion with patient we decided to discharge her with the results of the troponin pending given her concern for cardiac pathology was quite low. However, her troponin returned 0.06. Her troponin has been elevated appetites been tested over the last 2 years, it is unclear whether this represents a baseline troponin value or a new NSTEMI. Given this I called her back and she has returned for second troponin test. She reports that she remains asymptomatic without chest pain shortness of breath vision changes etc. Her blood pressure on arrival is in the 130s systolic. Related Data Home Medications ?Medication ?Instructions ?Recorded ?Confirmed promethazine 12.5 mg tablet 12.5 mg PO TID 10/11/23 10/07/24 clonidine HCl 0.1 mg tablet 0.1 mg PO PRN 03/04/24 10/07/24 aripiprazole 2 mg tablet 2 mg PO DAILY 05/09/24 10/07/24 ondansetron 4 mg disintegrating 4 mg PO PRN 05/09/24 10/07/24 tablet Previous Rx's ?Medication ?Instructions ?Recorded cholecalciferol (vitamin D3) 62.5 62.5 mcg PO DAILY 90 days #90 caps 04/10/23 mcg (2,500 unit) capsule amlodipine 5 mg tablet 5 mg PO HS hypertension #90 tabs 12/10/23 mometasone-formoterol HFA 200 2 puff inhalation BID Asthma #13 12/31/23 mcg-5 mcg/actuation aerosol grams inhaler (Dulera) fluticasone 100 mcg-salmeterol 50 1 inh inhalation BID #60 ea 01/08/24 mcg/dose blistr powdr for inhalation (Advair Diskus) duloxetine 60 mg capsule,delayed See Rx Instructions .Route 01/18/24 release .COMPLEX #180 caps estradiol 0.01% (0.1 mg/gram) 1 appful vaginal DAILY PRN leakage 02/14/24 vaginal cream #42.5 grams ferrous sulfate 325 mg (65 mg See Rx Instructions .Route 03/03/24 iron) tablet (FeroSul) .COMPLEX #30 tabs amitriptyline 50 mg tablet 50 mg PO HS #30 tabs 03/04/24 dicyclomine 10 mg capsule 10 mg PO TID PRN abdominal pain 06/26/24 #90 caps rifaximin 550 mg tablet (Xifaxan) 550 mg PO TID #42 tabs 06/26/24 ergocalciferol (vitamin D2) 1,250 1,250 mcg PO WEEKLY #4 caps 07/07/24 mcg (50,000 unit) capsule benzonatate 100 mg capsule 100 mg PO TID PRN cough #30 caps 08/27/24 sulfamethoxazole 400 See Rx Instructions .Route 09/10/24 mg-trimethoprim 80 mg tablet .COMPLEX #30 tabs acyclovir 400 mg tablet See Rx Instructions .Route 09/25/24 .COMPLEX #60 tabs losartan 50 mg tablet See Rx Instructions .Route 09/25/24 .COMPLEX #135 tabs ciclopirox 0.77 % topical gel 1 applic topical ONCE toenail 10/07/24 fungus 90 days #100 grams levothyroxine 25 mcg tablet See Rx Instructions .Route 10/10/24 .COMPLEX #90 tabs atorvastatin 40 mg tablet 40 mg PO DAILY #90 tabs 10/16/24 terbinafine HCl 250 mg tablet 250 mg PO DAILY fungus 90 days #90 10/16/24 tabs furosemide 40 mg tablet See Rx Instructions .Route 11/21/24 .COMPLEX #30 tabs tizanidine 4 mg tablet See Rx Instructions .Route 11/21/24 .COMPLEX #90 ea diphenoxylate-atropine 2.5 1 tab PO TID 90 days #270 tabs 11/26/24 mg-0.025 mg tablet hydromorphone 4 mg tablet 4 mg PO Q4-6H PRN pain #60 tabs 11/26/24 oxycodone 10 mg tablet 10 mg PO Q4H PRN pain #90 tabs 11/26/24 Allergies Allergy/AdvReac Type Severity Reaction Status Date / Time ciprofloxacin (From Cipro) Allergy Intermediate Muscle Pain Verified 10/07/24 10:08 levofloxacin (From Levaquin) AdvReac Verified 10/07/24 10:08 [facility] Disclaimer: The information contained in this section may have been updated after the patient was seen, as this information can be updated by other users. Medical History Hypertension Paroxysmal atrial fibrillation Aftercare following bilateral knee joint replacement surgery C. difficile diarrhea Colostomy in place Perforated sigmoid colon Elevated liver enzymes Ileus Abnormal electrocardiogram [ECG] [EKG] Abdominal pain TIP (acute kidney injury) Hypothyroidism IBS (irritable bowel syndrome) HLD (hyperlipidemia) HTN (hypertension), benign Hypokalemia Hypokalemia due to loss of potassium Surgical History H/O ileostomy History of total right hip replacement History of arthroscopy of left shoulder Family History Other Anemia Asthma Cancer Hyperlipidemia Social History Smoking Status: Never smoker second hand exposure: No alcohol intake: never current occupational status: retired Travel in the last 8 weeks?: None household members: spouse housing: house current occupational exposures/hazards: No caffeine: No Have you lived/traveled outside US in past 30 days?: No Contact w/someone who lives/traveled outside US past 30 days?: No Exposure to someone with infectious disease in past 14 days?: No Do you have a fever (greater than 100.4 F or 38 C)?: No Have you tested positive for COVID-19?: No Exposed to someone with COVID-19 in past 14 days?: No Do you have a sore throat?: No Do you have a cough?: No Do you have any weakness?: No Do you have any diarrhea?: No Are you experiencing any unusual bleeding?: No Do you have any muscle aches/pain?: No Do you have any abdominal pain?: No Are you experiencing loss of taste or smell?: No Other Medical History Have you received the Flu Vaccine for this season: No Have you received the Pneumonia Vaccine: Yes ROS Obtained: Yes All systems reviewed & no additional complaints except as documented Physical Exam General General appearance: alert and in no apparent distress Head Head exam: atraumatic and normocephalic Eye Eye exam: Present normal appearance, PERRL and EOMI ENT ENT exam: Present normal oropharynx and normal external ear exam Neck Neck exam: Present normal inspection and full ROM Chest Chest inspection: Present normal inspection and symmetric chest wall rise; Absent tenderness Respiratory Respiratory exam: Present normal lung sounds bilaterally; Absent respiratory distress Cardiovascular Cardiovascular exam: Present regular rate and normal rhythm Abdominal Exam Abdominal exam: Present soft; Absent distention, tenderness or guarding Extremities Exam Extremities exam: Present normal inspection; Absent edema or joint swelling Back Exam Back exam: Present normal inspection; Absent tenderness Neurological Exam Neurological exam: Present alert and oriented X3; Absent motor sensory deficit Psychiatric Psychiatric exam: Present normal affect and normal mood Skin Skin exam: Present warm, dry and normal color Lymphatic Lymphatic Findings: no adenopathy Medical Decision Making Medical Records Medical records reviewed: Yes I reviewed the patient's medical records. Screening: Per USPSTF and CDC recommendations, given the prevalence of disease in our region, it is our hospital?s policy to screen for HIV and viral Hepatitis for all patients aged 18 and over and those with ongoing risk factors. Beto Inquiry Pt receiving controlled substance: No Beto was queried for this patient: No Vital Signs: 11/28/24 05:15 11/28/24 05:36 11/28/24 05:36 Temperature 98.0 F Temperature Source Oral Pulse Rate 93 H Pulse Rate [Right Radial] 112 H Respiratory Rate 20 9 L Blood Pressure 122/83 Blood Pressure [Right Arm] 131/78 Blood Pressure Mean 103 Blood Pressure Mean [Right Arm] 95 Blood Pressure Source [Right Arm] Automatic Cuff Blood Pressure Position [Right Arm] Sitting 02 Sat by Pulse Oximetry 92 L 90 L Oxygen Delivery Method Room Air 11/28/24 06:00 Temperature Temperature Source Pulse Rate Pulse Rate [Right Radial] Respiratory Rate Blood Pressure 137/84 Blood Pressure [Right Arm] Blood Pressure Mean 113 Blood Pressure Mean [Right Arm] Blood Pressure Source [Right Arm] Blood Pressure Position [Right Arm] 02 Sat by Pulse Oximetry Oxygen Delivery Method Lab Data Lab results reviewed: Yes I reviewed the patient's lab results. Lab Results 11/28/24 00:00: HIV Ag/Ab Combo Qual Negative 11/28/24 05:30: Troponin I 0.05 H, NT-Pro-B Natriuret Pep 3170 H Orders (Tests/Meds): ORDERS Category Date Time Status BNP [NT Pro Brain Natriuretic Pep.] Stat Lab 11/28/24 05:30 Completed HIV Combo Stat Lab 11/28/24 00:00 Completed Hepatitis C Ab Qual. W/ RFX Stat Lab 11/28/24 00:00 Received Trop I [Troponin I] Stat Lab 11/28/24 05:30 Completed Troponin I Q3H Lab 11/28/24 08:15 Ordered Troponin I Q3H Lab 11/28/24 11:15 Ordered ECG Data Tracing #1: I reviewed this ECG and interpreted as documented below: Sinus rhythm, rate of 99, no significant ST or T wave changes, no evidence of arrhythmia. ECG initial impression date: 11/28/24 ECG initial impression time: 05:18 Medical Decision Narrative: 74-year-old female with history of hypertension returns to the ER for recheck. See note from a few hours ago for further details. In short, patient presented initially for persistent hypertension over 200 systolic. Blood work, EKG and chest x-ray were unremarkable and patient's blood pressure came down below 200 systolic with minimal intervention and patient ari asymptomatic. Unfortunately we were waiting for an unknown period of time of the troponin and after discussion with patient we decided to discharge her with the results of the troponin pending given her concern for cardiac pathology was quite low. However, her troponin returned 0.06. Her troponin has been elevated appetites been tested over the last 2 years, it is unclear whether this represents a baseline troponin value or a new NSTEMI. Given this I called her back and she has returned for second troponin test. She reports that she remains asymptomatic without chest pain shortness of breath vision changes etc. Her blood pressure on arrival is in the 130s systolic. On reassessment she remains asymptomatic. EKG is normal sinus rhythm and unchanged from prior. Her troponin is 0.05 and her BNP is only minimally elevated. These values are stable and I believe they likely represent a baseline laboratory value, not a new NSTEMI or evidence of acute cardiac injury. Had extensive discussion with patient regarding her presentation and labs. She will follow-up with her PCP for further assessment. Return precautions given. Procedures Risk/Benefits of Procedure(s) Were Explained: Yes Critical Care Critical Care Time Critical Care Time: No
[2024-11-28 06:00] VITALS: BP 137/84
[2024-11-28 06:05] LABS: NT Pro Brain Natriuretic Pep. 3170 pg/mL (0-125)
[2024-11-28 06:07] LABS: Troponin I 0.05 ng/ml (0.00-0.034)
[2024-11-28 06:15] VITALS: BP 137/84; PULSE 91; RESP 12; TEMP 36.6; O2SAT 98
[2024-11-28 06:18] LABS: Hepatitis C Ab Qual. W/ RFX REACTIVE (Negative)
[2024-11-28 06:21] VITALS: BP 137/84; PULSE 91; RESP 12; TEMP 36.6; O2SAT 98
== END 2024-11-28 06:28 | disposition home or self-care (01) ==
PROVIDERS: Emergency Provider Emergency Medicine; PCP Family Medicine
DX: I16.0 Hypertensive urgency (principal); I10 Essential (primary) hypertension; I48.91 Unspecified atrial fibrillation; E78.5 Hyperlipidemia, unspecified
CPT/HCPCS: 83880; 84484; 86803; 87389; 87522; 93005; 99284

== ENCOUNTER 2024-11-30 01:29 | Observation (INO) | payer MEDICARE, OTHER, SELFPAY ==
--- OUTSIDE RECORDS SUMMARY | 2024-04-17 07:45 | XMS_ITS ---
Author Organization [facility] Address [address] [place], [place] Care Team Providers Care Sales Contracts Analyst Name Role Phone Timothy Granda DO Primary Care Provider Tha Chaudhry Unavailable [phone] Jesus Rose Unavailable REASON FOR VISIT NEW PATIENT Encounters Encounter Location Date Provider Diagnosis [facility] [address] [place] [address] 04/17/2024 Jesus Rose Plan Of Treatment No Information Progress Notes * KRISTACIERRA MonroeMaryellenOB:[birth year] (74 yo F)Acc No.[id number]:04/17/2024 Progress Notes Patient: Farrah SEAY Provider: Leelee Rose :1950 A ge:73 Y S ex:Female Date:04/17/2024 [facility] Pcp:Timothy Granda DO Subjective: * Chief Complaints: * 1 . NEW PATIENT. * Medical History: Objective: * Vitals: Assessment: Plan: * Treatment: * * Electronic signature of Reza Rose APRN on 11/30/2024 at 01:35 AM EDT Sign off status: Pending * Provider: Leelee Rose Date: 0 04/17/2024 Generated for Brisa conway/Sahra/Angela on: 0 11/30/2024 01:35 AM EDT
--- OUTSIDE RECORDS SUMMARY | 2024-05-13 09:30 | XMS_ITS ---
Author Organization [facility] Address [address] [place] [address] Care Team Providers Care Joint Setter Name Role Phone Timothy Granda DO Primary Care Provider Tha Chaudhry Unavailable [phone] REASON FOR VISIT NEW PATIENT Encounters Encounter Location Date Provider Diagnosis [facility] [address] [place] [address] 05/13/2024 Tha Krishnamurthy Plan Of Treatment No Information Progress Notes * Giselle ATKINSONOB:[birth year] (74 yo F)Acc No.[id number]:05/13/2024 Progress Notes Patient: Farrah SEAY Provider: Sarabjit Krishnamurthy MD :1950 A ge:73 Y S ex:Female Date:05/13/2024 [facility] Pcp:Timothy Granda DO Subjective: * Chief Complaints: * 1 . NEW PATIENT. * Medical History: Objective: * Vitals: Assessment: Plan: * Treatment: * * Electronic signature of Didier Krishnamurthy MD on 11/30/2024 at 01:35 AM EDT Sign off status: Pending * Provider: Sarabjit Krishnamurthy MD Date: 05/13/2024 Generated for Brisa conway/Sahra/eTnamsmitting on: 0 11/30/2024 01:35 AM EDT
--- OUTSIDE RECORDS SUMMARY | 2024-06-17 09:30 | XMS_ITS ---
Author Organization [facility] Address [address] [place] [address] Care Team Providers Care Facilitator Name Role Phone Timothy Granda DO Primary Care Provider Tha Chaudhry [facility] [phone] REASON FOR VISIT NEW PATIENT Encounters Encounter Location Date Provider Diagnosis [facility] [address] [place] [address] 06/17/2024 Tha Krishnamurthy Plan Of Treatment No Information Progress Notes * Giselle ATKINSONOB:[birth year] (74 yo F)Acc No.[id number]:06/17/2024 Progress Notes Patient: Farrah SEAY Provider: Sarabjit Krishnamurthy MD :1950 A ge:73 Y S ex:Female Date:06/17/2024 [facility] Pcp:Timothy Granda DO Subjective: * Chief Complaints: * 1 . NEW PATIENT. * Medical History: Objective: * Vitals: Assessment: Plan: * Treatment: * * Electronic signature of Didier Krishnamurthy MD on 11/30/2024 at 01:36 AM EDT Sign off status: Pending * Provider: Sarbajit Krishnamurthy MD Date: 06/17/2024 Generated for Brisa conway/Sahra/Jujuitting on: 11/30/2024 01:36 AM EDT
[2024-11-30] VITALS (16 sets, daily range): BP systolic 132–215; BP diastolic 64–97; PULSE 100–146; RESP 12–18; TEMP 36.4–36.9; O2SAT 90–98; BMI 29.2; BMI 30.2
--- NOTE | 2024-11-30 01:32 | HMH.EDGENADL ---
Discharge Plan Disposition Patient Disposition: Home, Self-Care Clinical Impressions Clinical Impression: TIP (acute kidney injury), Increased ileostomy output, Hypertensive emergency, Gastroenteritis Vomiting Qualifiers: Vomiting type: unspecified Nausea presence: with nausea Qualified Code(s): R11.2 - Nausea with vomiting, unspecified Discharge ED Provider: Manjit Barahona General Adult HPI General Chief complaint: Nausea/Vomiting/Diarrhea Stated complaint: N/V Time Seen by Provider: 11/30/24 01:31 History of Present Illness HPI narrative: 74-year-old female with history of hypertension, ileostomy in place, IBS, presents for abdominal pain, nausea, vomiting, increased ileostomy output. I saw her last night for concerns about her blood pressure. It has been high over the last couple of days. She did report 1 or 2 episodes of vomiting when I saw her yesterday but at that time she had no nausea vomiting chest pain headache or any other symptoms. We did a workup for hypertensive emergency which was unremarkable. When she went home, she developed persistent nausea vomiting, abdominal pain and marked ileostomy output. She reports that she was recently started on terbinafine for fungal infection of the toenails. Related Data Home Medications ?Medication ?Instructions ?Recorded ?Confirmed promethazine 12.5 mg tablet 12.5 mg PO TID 10/11/23 10/07/24 clonidine HCl 0.1 mg tablet 0.1 mg PO PRN 03/04/24 10/07/24 aripiprazole 2 mg tablet 2 mg PO DAILY 05/09/24 10/07/24 ondansetron 4 mg disintegrating 4 mg PO PRN 05/09/24 10/07/24 tablet Previous Rx's ?Medication ?Instructions ?Recorded cholecalciferol (vitamin D3) 62.5 62.5 mcg PO DAILY 90 days #90 caps 04/10/23 mcg (2,500 unit) capsule amlodipine 5 mg tablet 5 mg PO HS hypertension #90 tabs 12/10/23 mometasone-formoterol HFA 200 2 puff inhalation BID Asthma #13 12/31/23 mcg-5 mcg/actuation aerosol grams inhaler (Dulera) fluticasone 100 mcg-salmeterol 50 1 inh inhalation BID #60 ea 01/08/24 mcg/dose blistr powdr for inhalation (Advair Diskus) duloxetine 60 mg capsule,delayed See Rx Instructions .Route 01/18/24 release .COMPLEX #180 caps estradiol 0.01% (0.1 mg/gram) 1 appful vaginal DAILY PRN leakage 02/14/24 vaginal cream #42.5 grams ferrous sulfate 325 mg (65 mg See Rx Instructions .Route 03/03/24 iron) tablet (FeroSul) .COMPLEX #30 tabs amitriptyline 50 mg tablet 50 mg PO HS #30 tabs 03/04/24 dicyclomine 10 mg capsule 10 mg PO TID PRN abdominal pain 06/26/24 #90 caps rifaximin 550 mg tablet (Xifaxan) 550 mg PO TID #42 tabs 06/26/24 ergocalciferol (vitamin D2) 1,250 1,250 mcg PO WEEKLY #4 caps 07/07/24 mcg (50,000 unit) capsule benzonatate 100 mg capsule 100 mg PO TID PRN cough #30 caps 08/27/24 sulfamethoxazole 400 See Rx Instructions .Route 09/10/24 mg-trimethoprim 80 mg tablet .COMPLEX #30 tabs acyclovir 400 mg tablet See Rx Instructions .Route 09/25/24 .COMPLEX #60 tabs losartan 50 mg tablet See Rx Instructions .Route 09/25/24 .COMPLEX #135 tabs ciclopirox 0.77 % topical gel 1 applic topical ONCE toenail 10/07/24 fungus 90 days #100 grams levothyroxine 25 mcg tablet See Rx Instructions .Route 10/10/24 .COMPLEX #90 tabs atorvastatin 40 mg tablet 40 mg PO DAILY #90 tabs 10/16/24 terbinafine HCl 250 mg tablet 250 mg PO DAILY fungus 90 days #90 10/16/24 tabs furosemide 40 mg tablet See Rx Instructions .Route 11/21/24 .COMPLEX #30 tabs tizanidine 4 mg tablet See Rx Instructions .Route 11/21/24 .COMPLEX #90 ea diphenoxylate-atropine 2.5 1 tab PO TID 90 days #270 tabs 11/26/24 mg-0.025 mg tablet hydromorphone 4 mg tablet 4 mg PO Q4-6H PRN pain #60 tabs 11/26/24 oxycodone 10 mg tablet 10 mg PO Q4H PRN pain #90 tabs 11/26/24 Allergies Allergy/AdvReac Type Severity Reaction Status Date / Time ciprofloxacin (From Cipro) Allergy Intermediate Muscle Pain Verified 10/07/24 10:08 levofloxacin (From Levaquin) AdvReac Verified 10/07/24 10:08 [facility] Disclaimer: The information contained in this section may have been updated after the patient was seen, as this information can be updated by other users. Medical History Hypertension Paroxysmal atrial fibrillation Aftercare following bilateral knee joint replacement surgery C. difficile diarrhea Colostomy in place Perforated sigmoid colon Elevated liver enzymes Ileus Abnormal electrocardiogram [ECG] [EKG] Abdominal pain TIP (acute kidney injury) Hypothyroidism IBS (irritable bowel syndrome) HLD (hyperlipidemia) HTN (hypertension), benign Hypokalemia Hypokalemia due to loss of potassium Surgical History H/O ileostomy History of total right hip replacement History of arthroscopy of left shoulder Family History Other Anemia Asthma Cancer Hyperlipidemia Social History Smoking Status: Never smoker second hand exposure: No alcohol intake: never current occupational status: retired Travel in the last 8 weeks?: None household members: spouse housing: house current occupational exposures/hazards: No caffeine: No Have you lived/traveled outside US in past 30 days?: No Contact w/someone who lives/traveled outside US past 30 days?: No Exposure to someone with infectious disease in past 14 days?: No Do you have a fever (greater than 100.4 F or 38 C)?: No Have you tested positive for COVID-19?: No Exposed to someone with COVID-19 in past 14 days?: No Do you have a sore throat?: No Do you have a cough?: No Do you have any weakness?: No Do you have any diarrhea?: No Are you experiencing any unusual bleeding?: No Do you have any muscle aches/pain?: No Do you have any abdominal pain?: No Are you experiencing loss of taste or smell?: No Other Medical History Have you received the Flu Vaccine for this season: No Have you received the Pneumonia Vaccine: Yes ROS Obtained: Yes All systems reviewed & no additional complaints except as documented Physical Exam General General appearance: alert Comment: Uncomfortable appearing Head Head exam: atraumatic and normocephalic Eye Eye exam: Present normal appearance, PERRL and EOMI ENT ENT exam: Present normal oropharynx and normal external ear exam Neck Neck exam: Present normal inspection and full ROM Chest Chest inspection: Present normal inspection and symmetric chest wall rise; Absent tenderness Respiratory Respiratory exam: Present normal lung sounds bilaterally; Absent respiratory distress Cardiovascular Cardiovascular exam: Present regular rate and normal rhythm Abdominal Exam Abdominal exam: Present soft and tenderness (Mild, generalized); Absent distention or guarding Extremities Exam Extremities exam: Present normal inspection; Absent edema or joint swelling Back Exam Back exam: Present normal inspection; Absent tenderness Neurological Exam Neurological exam: Present alert and oriented X3; Absent motor sensory deficit Psychiatric Psychiatric exam: Present normal affect and normal mood Skin Skin exam: Present warm, dry and normal color Lymphatic Lymphatic Findings: no adenopathy Medical Decision Making Medical Records Medical records reviewed: Yes I reviewed the patient's medical records. Screening: Per USPSTF and CDC recommendations, given the prevalence of disease in our region, it is our hospital?s policy to screen for HIV and viral Hepatitis for all patients aged 18 and over and those with ongoing risk factors. Beto Inquiry Pt receiving controlled substance: No Beto was queried for this patient: No Vital Signs: 11/30/24 01:39 11/30/24 03:50 11/30/24 03:52 Temperature 97.6 F 97.6 F Temperature Source Oral Oral Pulse Rate 119 H Pulse Rate [Right] 104 H Respiratory Rate 16 18 Blood Pressure 200/93 H Blood Pressure [Right Arm] 215/95 H Blood Pressure Mean [Right Arm] 135 Blood Pressure Position Sitting 02 Sat by Pulse Oximetry 97 98 Oxygen Delivery Method Room Air Room Air Room Air Lab Data Lab results reviewed: Yes I reviewed the patient's lab results. Lab Results 11/30/24 00:25: Stl C. cayetanensis PCR Not detected, Stool Rotavirus (PCR) Not detected, Stl Adenov F 40/41 PCR Not detected, Stool Astrovirus (PCR) Not detected, Stool Campylobacter PCR Not detected, Stl C.difficile Tox PCR Not detected, Stool Cryptosporidium PCR Not detected, Stl E.coli Shiga Tox PCR Not detected, Stool E coli O157 PCR Not detected, Stl Enterotoxigenic E PCR Not detected, Stool EPEC (PCR) Detected A, Stool EAEC (PCR) Not detected, Stl E. histolytica PCR Not detected, Stool Giardia Lamblia PCR Not detected, Stool Salmonella PCR Not detected, Stool Sapovirus (PCR) Not detected, Stl P. shigelloides PCR Not detected, Stl Shigella/EIEC PCR Not detected, St Y.enterocolitica PCR Not detected, Stool Vibrio (PCR) Not detected, Stl Vibrio cholerae PCR Not detected, Stl Norovirus GI/GII PCR Not detected 11/30/24 02:05: WBC 11.5 H, RBC 4.78, Hgb 14.3, Hct 43.3, MCV 90.6, MCH 29.9, MCHC 33.0, RDW 14.9, Plt Count 505 H, MPV 9.4, Neut % (Auto) 77.0, Lymph % (Auto) 14.4, Deuel % (Auto) 6.0, Eos % (Auto) 1.8, Baso % (Auto) 0.5, Neut # (Auto) 8.9 H, Lymph # (Auto) 1.7, Deuel # (Auto) 0.7, Eos # (Auto) 0.2, Baso # (Auto) 0.1, Sodium 137, Potassium 4.3, Chloride 101, Carbon Dioxide 26, Anion Gap 14.3, BUN 32 H D, Creatinine 1.70 H D, Estimated Creat Clear 34, Estimated GFR 29 L, Est GFR ( Amer) 36 L D, Glucose 177 H, Calcium 10.4 H, Phosphorus 2.5, Magnesium 1.7, Total Bilirubin 0.7, AST 31, ALT 22, Alkaline Phosphatase 145 H, Troponin I 0.05 H, Total Protein 8.4 H, Albumin 4.9, Globulin 3.5 H, Albumin/Globulin Ratio 1.4, Lipase 73 11/30/24 02:15: VBG pH 7.40, VBG pCO2 41.4, VBG pO2 55.0 H, VBG HCO3 25.0, VBG Total CO2 26.3, VBG O2 Saturation 89.5 H, VBG Base Excess 0.2, VBG Lactic Acid 2.3 H 11/30/24 02:05 11/30/24 02:05 Orders (Tests/Meds): ED MEDICATIONS Generic Name Dose Route Start Last Admin Trade Name Rhiannon PRN Reason Stop Dose Admin Acetaminophen 650 mg 11/30/24 03:38 Acetaminophen 325mg Tab PO 12/30/24 03:37 Q6HP PRN Fever or Mild Pain (1-3) Famotidine 20 mg 11/30/24 09:00 Famotidine 20mg/2ml Vial IV 12/30/24 08:59 BID RACHEL Lactated Ringer's 1,000 mls @ 150 mls/hr 11/30/24 03:45 11/30/24 05:17 Lactated Ringer's 1000 Ml Bag IV 12/30/24 03:44 150 mls/hr .Q6H40M RACHEL Administration Diltiazem HCl 100 mg/ Sodium 100 mls @ 5 mls/hr 11/30/24 03:55 11/30/24 04:23 Chloride IV 12/30/24 03:54 5 mg/hr .Q20H RACHEL 5 mls/hr Protocol Administration 5 MG/HR Morphine Sulfate 4 mg 11/30/24 03:32 11/30/24 03:35 Morphine 4mg/Ml Syringe IV 11/30/24 03:33 4 mg ONCE ONE Administration Morphine Sulfate 2 mg 11/30/24 03:38 11/30/24 06:06 Morphine 2mg/Ml Syringe IV 12/30/24 03:37 2 mg Q1HP PRN Administration Severe Pain (7-10) Naloxone HCl 0.4 mg 11/30/24 03:38 Naloxone 0.4mg/Ml Vial IV 12/30/24 03:37 Q3MINP PRN Decreased Respirations Ondansetron HCl 4 mg 11/30/24 03:38 Ondansetron 4mg/2ml Vial IV 12/30/24 03:37 Q6HP PRN Nausea Promethazine HCl 12.5 mg 11/30/24 03:53 Promethazine Hcl 25mg/Ml 1ml Vial IV 12/30/24 03:52 Q6HP PRN Nausea And Vomiting Simethicone 160 mg 11/30/24 03:58 Simethicone 80mg Chewable Tablet PO 12/30/24 03:57 Q6HP PRN Gas Pain and Discomfort Sodium Chloride 10 ml 11/30/24 03:38 Sodium Chloride 0.9% 10ml Flush Syringe IV 12/30/24 03:37 NEEDED PRN Maintain IV Site Sodium Chloride 8 ml 11/30/24 03:38 Sodium Chloride 0.9% 10ml Vial IV 12/30/24 03:37 NEEDED PRN dilute famotidine Sodium Chloride 25 ml 11/30/24 03:53 Sodium Chloride 0.9% 25ml Bag IV 12/30/24 03:52 NEEDED PRN for Use with IV Promethazine Discontinued Medications Generic Name Dose Route Start Last Admin Trade Name Rhiannon PRN Reason Stop Dose Admin Amlodipine Besylate 5 mg 11/30/24 01:39 11/30/24 02:17 Amlodipine 5mg Tablet PO 11/30/24 01:40 5 mg ONCE ONE Administration Hydralazine HCl 10 mg 11/30/24 02:40 11/30/24 03:07 Hydralazine 20mg/Ml Vial IV 11/30/24 02:41 10 mg ONCE ONE Administration Lactated Ringer's 1,000 mls @ 999 mls/hr 11/30/24 01:45 11/30/24 02:17 Lactated Ringer's 1000 Ml Bag IV 11/30/24 02:45 999 mls/hr .Q1H1M RACHEL Administration Iopamidol 75 ml 11/30/24 02:51 11/30/24 02:53 Iopamidol-370 (76%);100ml Bottle IV 11/30/24 02:52 75 ml ONCE ONE Administration Morphine Sulfate 4 mg 11/30/24 01:36 11/30/24 02:17 Morphine 4mg/Ml Syringe IV 11/30/24 01:37 4 mg ONCE ONE Administration Ondansetron HCl 4 mg 11/30/24 01:36 11/30/24 02:17 Ondansetron 4mg/2ml Vial IV 11/30/24 01:37 4 mg ONCE ONE Administration Sodium Chloride 10 ml 11/30/24 02:51 11/30/24 02:53 Sodium Chloride 0.9% 10ml Syr (Rad Only) IV 11/30/24 02:52 10 ml ONCE ONE Administration ORDERS Category Date Time Status CT abdomen pelvis w con Stat Cat Scan 11/30/24 01:37 Completed CBC w/Auto Diff [Complete Blood Count Auto Diff] Stat Lab 11/30/24 02:05 Completed CMP [Comprehensive Metabolic Panel] Stat Lab 11/30/24 02:05 Completed Diarrhea 23 Panel, PCR Stat Lab 11/30/24 00:25 Completed Lactate Venous Stat Lab 11/30/24 02:38 Ordered Lipase Stat Lab 11/30/24 02:05 Completed Magnesium Stat Lab 11/30/24 02:05 Completed Phosphorous Stat Lab 11/30/24 02:05 Completed Trop I [Troponin I] Stat Lab 11/30/24 02:05 Completed Troponin I Q3H Lab 11/30/24 05:28 Received Troponin I Q3H Lab 11/30/24 08:15 Ordered VBG [Venous Blood Gas] Stat RT 11/30/24 02:15 Completed ECG Data Tracing #1: I reviewed this ECG and interpreted as documented below: Sinus tachycardia, rate of 109, no concerning ischemic changes ECG initial impression date: 11/30/24 ECG initial impression time: 02:17 HEART Score History (anamnesis): Slightly suspicious ECG: Normal Age: >65 years Risk factors: 1-2 risk factors Troponin: </= normal limit HEART Score: 3 Medical Decision Narrative: 74-year-old female with history of of hypertension hyperlipidemia, hypothyroidism, status post colectomy with ileostomy in place, presents for abdominal pain, nausea vomiting diarrhea, increased ileostomy output as well as persistent hypertension.. History was obtained via interactive discussion with patient family chart review. On arrival, patient is afebrile, hypertensive, satting currently on room air, moving all extremities spontaneously. Full physical exam performed and significant for mild generalized abdominal tenderness Differential includes but is not limited to gastroenteritis, cholecystitis, mesenteric ischemia, pancreatitis hypertensive urgency hypertensive emergency. Patient was given amlodipine, hydralazine, 1 L IV fluid bolus, morphine, Zofran for symptomatic management and correction of underlying abnormalities. Workup initiated including broad-spectrum labs, CT scan of the abdomen pelvis with IV contrast. On re-evaluation, patient reports significant improvement of pain and nausea, no longer vomiting Laboratory workup independently interpreted by me and significant for TIP with creatinine 1.7, up from 1.3 yesterday. Unclear whether this is only from her dehydration or if there may be a component of hypertensive emergency. Electrolytes are unremarkable. White count mildly elevated. Troponin stable at baseline. Lipase negative Imaging independently interpreted by me and significant for thickened and enhancing fluid filled small bowel consistent with gastroenteritis/diarrheal state. No obvious obstruction noted. See radiology read for full review of final results. Antibiotic therapy was considered, but other to be better to wait for her diarrhea panel to result. Given patient history, exam and workup, patient's presentation most likely represents dehydration and TIP as result of gastroenteritis. Patient is also markedly hypertensive and may be some component of hypertensive emergency with the decreased renal function. Patient's blood pressure at admission is 180/84, significantly improved from arrival blood pressures of 220 systolic. Interactive discussion was had with hospitalist on-call for admission. Procedures Risk/Benefits of Procedure(s) Were Explained: Yes Critical Care Critical Care Time Critical Care Time: No
--- OUTSIDE RECORDS SUMMARY | 2024-11-30 01:35 | XMS_ITS | Encounter Summary ---
Author Organization [employer] ([place], [place], [place], [place]) Address [address] [place] [address] Care Team Providers Care Full Stack Software Developer Name Role Phone [facility], Provider Not In The System Primary Care Provider Unavailable Encounter Details Date Type Department Care Team (Late st Contact Info) Description 04/28/2019 Transcribed Document [facility] [place] [address] ProviderJean-Claude MD [address] [place] [id number] Social History Tobacco Use Types Packs/Day Years Used Date Smoking Tobacco: Never Assessed Comments Unknown Sex and Gender Information Value Date Recorded Sex Assigned at Not on file Legal Sex Female 5:42 PM CDT Gender Identity Not on file Sexual Orientation Not on file documented as of this encounter Miscellaneous Notes * Cerner Conversion Note - Historical ProviderMD - 04/28/2019 8:05 AM LEAN MANAGER ADI Main OR IntraOp Summary Primary Physician: MADISON OSPINA MD-ORT Finalized Date/Time: 04/28/19 08:39:15 Pt. Name: FARRAH ATKINSON D.O.B./Sex: 1950 Female Med Rec #: [id number] Physician: MADIOSN OSPINA MD-ORT Financial #: [id number] Pt. Type: O Room/Bed: Admit/Disch: 04/28/19 05:30:00 - Institution: [facility] Intra Case Attendance Entry 1 Entry 2 Entry 3 Case Attendee MADISON OSPINA MD-ORT WICKER, KAREN KIM, ARIA WATERS RN Role Performed Surgeon/Proceduralist, DEBURRING TECHNICIAN/Nurse Ginner Juvenile Justice Officer, First First Time In 04/28/19 07:39:00 04/28/19 [...] [facility] IntraOp Case Attendance Audit 04/28/19 08:34:51 Plastics Seasoner Operator: LONGGA Modifier: LONGGA 1 <+> Time Out 1 <*> Procedure Knee Arthroscopy 2 <+> Time Out 2 <*> Procedure Knee Arthroscopy 3 <+> Time Out 3 <*> Procedure Knee Arthroscopy 4 <+> Time Out 4 <*> Procedure Knee Arthroscopy 5 <+> Time Out 5 <*> Procedure Knee Arthroscopy 04/28/19 08:07:14 Plastics Seasoner Operator: LONGGA Modifier: LONGGA <+> 1 Time [...] [facility] IntraOp Case Times Audit 04/28/19 08:34:50 Plastics Seasoner Operator: LONGGA Modifier: LONGGA <+> 1 Out Room Time <+> 1 Stop Time 04/28/19 08:31:56 Plastics Seasoner Operator: LONGGA Modifier: LONGGA <+> 1 Stop [...] IntraOp Departure from OR Audit 04/28/19 08:32:27 Plastics Seasoner Operator: EMBER Modifier: LONGGA 1 <*> Patient [...] RN 04/28/19 08:15:47 [facility] IntraOp General Case Bead Forming Machine Set Up Operator 1 Case Information OR OR 05 S[facility] Case Level 1 Room Verified Yes Wound Class I - Clean Specialty SN Orthopedic Anesthesia Type General ASA Class 3 Diagnosis Preop Diagnosis PATELLAR CHONDROMALACIA RIGHT KNEE Postop Same As Preop No Postop Diagnosis DICTATED BY Mary Last Modified By: ARIA MELCHOR RN 04/28/19 08:15:39 [facility] IntraOp General Case Data Audit 04/28/19 08:15:39 Plastics Seasoner Operator: EMBER Modifier: LONGGA <+> 1 ASA [...] Entry 1 Medication/Irrigant epinephrine 30mg/30ml vial - [id number] Route of 3ML/3000ML OF NS Administration IRRIGATION [...] [facility] IntraOp Patient Positioning Audit 04/28/19 08:17:49 Plastics Seasoner Operator: LONGGA Modifier: LONGGA 1 <*> Procedure [...] [facility] IntraOp Surgical Procedures Audit 04/28/19 08:31:50 Plastics Seasoner Operator: LONGGA Modifier: LONGGA 1 <*> Procedure Knee Arthroscopy 1 <+> Stop 04/28/19 08:27:35 Plastics Seasoner Operator: LONGGA Modifier: LONGGA 1 <*> Procedure Knee Arthroscopy 1 <*> Additional Procedure Description RIGHT KNEE ARTHROSCOPY FOR RETROPATELLAR CHONDROPLASTY AND PARTIAL MENISCECTOMY 04/28/19 08:21:54 Plastics Seasoner Operator: LONGGA Modifier: LONGGA 1 <*> Procedure Knee Arthroscopy 1 <*> Additional Procedure Description LEFT KNEE ARTHROSCOPY FOR RETROPATELLAR CHONDROPLASTY AND PARTIAL MENISCECTOMY [facility] IntraOp Temp Regulation Devices Entry 1 Temp Regulation Temperature Forced Air Warming Regulation Device device Temperature 4765 Regulation Device Serial/Unit Number Temperature Upper body Regulation Site Temperature FARRAH MANE, DEBURRING TECHNICIAN Regulation Device Applied by Last Modified By: [...] 08:31:38 [facility] IntraOp Tourniquet Audit 04/28/19 08:31:38 Plastics Seasoner Operator: EMBER Modifier: EMBER <+> 1 Stop Time Case Comments <None> Finalized By: ARIA MELCHOR, RN Document Signatures Signed By: ARIA MELCHOR RN 04/28/19 08:39 Electronically signed by May [facility] Conversion Catering Service Manager Cerner at 07/23/2022 4:21 PM CDT documented in this encounter Plan of Treatment Not on file documented as of this encounter Visit Diagnoses Not on filedocumented in this encounter Care Teams Full Stack Software Developer Relationship Specialty Start Date End Date Leslee, Provider Not In The System, [place] [address] PCP - General 04/16/23 documented as of this encounter
--- OUTSIDE RECORDS SUMMARY | 2024-11-30 01:35 | XMS_ITS | Encounter Summary ---
Author Organization Healthcare Address [address] [place] [address] Care Team Providers Care Unit Supervisor Name Role Phone Timothy Granda DO Primary Care Provider [phone] Sadia Campo CITY TAX AUDITOR Unavailable Unavailable Encounter Details Date Type Department Care Team (Late st Contact Info) Description 07/24/2023 Lab Requisition [facility] [address] [place] [address] Miky Coleamn MD [address] [facility] [place] [address] Encounter for general adult medical [...] drink first t mini in the morning (EYE-PILE FABRIC KNITTER) to steady your nerves or to get [...] 1 07/25/2023 12:01 AM EDT [facility] Swab (Nares and Renata Rectal) 07/23/2023 9:00 AM EDT 07/24/2023 4:19 AM EDT us Miky Coleman MD LAB MICROBIOLOGY - GEN ERAL ORDERABLES Final Result [facility] [address] [place] [address] documented in this encounter Visit Diagnoses Diagnosis [...] documented as of this encounter Care Teams Unit Supervisor Relationship Specialty Start Date End Date Timothy Granda DO [address] [place] [address] PCP - General 05/25/23 Sadia Campo, [place] [address] Drywall Metal Stud Worker Home Help Aide 08/03/22 06/21/24 documented as of this encounter
--- OUTSIDE RECORDS SUMMARY | 2024-11-30 01:35 | XMS_ITS | Patient Health Record ---
Author Organization [facility] Address [address] [place] [address] Care Team Providers Care A/C Tech Name Role Phone Timothy Granda DO Primary Care Provider Tha Chaudhry Unavailable [phone] Jesus Rose Unavailable Unavailable Reason For Referral No Information Encounters Encounter Location Date Provider Diagnosis [facility] [address] [place] [address] 04/01/2024 Tha Krishnamurthy [place] [facility] [address] [place] [address] 05/13/2024 Tha Krishnamurthy [facility] [address] [place] [address] 06/17/2024 Tha Krishnamurthy Plan Of Treatment No Information Insurance Providers Payer Name Payer Address Payer Phone Subscriber Number Group Number Insured Name Patient Relationship to Insured Coverage Start Date Coverage End Date Medicare CGS Administrators [address] [id number] Farrah Anna Self - patient is the insured
--- OUTSIDE RECORDS SUMMARY | 2024-11-30 01:35 | XMS_ITS | Clinical Summary ---
Author Organization [facility] Address [address] [place] [address] Care Team Providers Care Fire Prevention Specialist Name Role Phone KaleeTimothy Primary Care Provider [phone] Allergies Active Allergy Reactions Criticality Noted Date [...] Patient may need Pain Management referral. Discontinue Argyle and use oxycodone 10mg q6h prn. Discussed with patient will not increase this medicine superintendent terminal prescription opiate use 03/13/2022 Chronic arthritis associated [...] this topic Medical Devices Implanted Type Area Power Supply Engineer Device Identifier Shelf Expiration Date Model / Serial / Lot Cmt Bone Simplex/P Full Dose /Pk - [id number] Implanted:Qty : 1 on 07/18/2018 by Bautista Luis MD at [facility] Implant Right: Shoulder TRACY RUBEN 09/29/2020 [id number] / / [id number] Stem Hum Univers Vassar 6x60mm - [id number] Implanted:Qty : 1 on 07/18/2018 by Bautista Luis MD at [facility] Implant Right: Shoulder ARTHREX 08/30/2022 [id number] / / [id number] Alberto Vaultlock Sm - [id number] Implanted:Qty : 1 on 07/18/2018 by Bautista Luis MD at [facility] Implant Right: Shoulder ARTHREX 12/30/2022 [id number] / / [id number] Hd Hum Univers2 Cocr 50q30zz - [id number] Implanted:Qty : 1 on 07/18/2018 by Bautista Luis MD at [facility] Implant Right: Shoulder ARTHREX 03/01/2022 [id number] / / [id number] Sut Tw 2/0 38in Wht/Blk - [id number] Implanted:Qty : 3 on 07/18/2018 by Bautista Luis MD at [facility] Implant Right: Shoulder ARTHREX [id number] / / Totl Arth Shldr S3 - [id number] Implanted:Qty : 1 on 07/18/2018 by Bautista Luis MD at [facility] Implant Right: Shoulder ARTHREX CAPTOTLSHLD [id number] / / Procedures Procedure Name Priority Date/Time [...] EST Performed at: 01 - [facility] [address] [place], [place] [id number] Multiskill Operator: Carlos Rod PhD, Phone: [phone] Connor Nunez MD LAB BLOOD ORDERABLES Fin al Result Performing Organization Address [facility] Co de Phone Number [facility] [address] [place] [address], [facility] [address] [place] [address], * Hepatitis C Genotype (12/15/2021 11:55 AM EDT) [facility] Signature Hepatitis C Genotype Comment [facility] Comment: Specimen has insufficient hepatitis C virus RNA to obtain genotyping results. This genotyping assay should only be used for known HCV positive patients with HCV RNA levels above 1000 IU/mL. Please note Comment [facility] Comment: This test was developed and its performance characteristics determined by [facility]. It has not been cleared or approved by the U.S. Food and Drug Administration. The FDA has determined that such clearance or approval is not necessary. This test is used for clinical purposes. It should not be regarded as investigational or for research. Blood 12/15/2021 11:5 5 AM EDT 12/16/2021 Narrative [facility] ([facility]) - 12/21/2021 8:08 PM EDT Performed at: [address] [place] [id number] Multiskill Operator: Genna Davenport MD, Phone: [phone] Patient Fasting: Y Connor Nunez MD LAB BLOOD ORDERABLES Fin al Result Performing Organization Address [facility] Co de Phone Number [facility] ([facility] [address] [place] [address], [facility] [address] [place], [place] [id number], * SCANNED - MAMMO (08/23/2021) Anatomical Region Laterality Modality Other Connor Nunez MD CHART REVIEW TABS Fin al Result * Hemoglobin A1c (07/10/2018 3:05 PM EDT) Hemoglobin A1C 5.10 4.80 - 5.60 % 07/10/2018 3:58 PM EDT [facility] Blood Venipuncture / Unknown 07/10/2018 3:05 PM EDT 07/10/2018 3:36 PM EDT Narrative [facility] - 07/10/2018 3:58 PM EDT Hemoglobin A1C Ranges: Increased Risk for Diabetes 5.7% to 6.4% Diabetes >= 6.5% Diabetic Goal < 7.0% Bautista Luis MD LAB BLOOD ORDERABLES Fin al Result [facility]
[address] [place] [address], from Last 3 Months or Most Recently Relevant to Health Maintenance Insurance MEDICARE A & B Member Subscriber Plan / Payer (Ef fective 2013-Present) Name:Farrah Atkinson Member ID:[id number] Relation to Subscriber:Self Name:Farrah Atkinson Subscriber ID:[id number] Payer ID:[id number] Group ID:Not on file Type:Not on file Address: [facility] [id number] [place] [address] Advance Directives * CPR (Attempt to Resuscitate) (Latest Code Status on File) Date Activated Date Inactivated Comments 07/18/2018 6:35 PM 07/19/2018 6:14 PM Question Answer Comments Code Status (Patient has no pulse and is not breathing): CPR (Attempt to Resuscitate) Medical Interventions (Patie nt has pulse or is breathing): Full Level Of Support Discussed With: Patient Care Teams Fire Prevention Specialist Relationship Specialty Start Date End Date Timothy Granda DO [address] [place] [address] PCP - General Internal Medicine 06/12/23
--- OUTSIDE RECORDS SUMMARY | 2024-11-30 01:35 | XMS_ITS | Clinical Summary ---
Author Organization [facility] Address [address] [facility], [address] [place] [address] Care Team Providers Care Director Of Product Development Name Role Phone Unavailable Primary Care Provider [...] (ZANAFLEX) 4 MG tablet 03/20/2024 Active CREON [id number] units CPEP delayed release capsule TAKE ONE [...] Willa Lan Orthopedic Nurse Navigator Phone number: [phone] Problem Noted Date Diagnosed Date Left shoulder pain 11/05/2024 Encounters Date Type Department Care Team Description 11/21/2024 Telephone [facility] Sports [address] [address] Willa Lan RN Care Coordination (Nurse navigator) 11/20/2024 Telephone [facility] Orthopaedics and Spine [address] 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 [address] [place] [address] Sharon Paulino MD IMAGING from Last 3 Months Family History Medical [...] Description 12/04/2024 1:30 PM EDT Office Visit [facility] [place], [address] [address] Sharon Paulino MD [address] [place] [address] [address] [place] [id number] Pre-op shoulder 12/15/2024 7:30 AM EDT Hospital Encounter [facility] General Surgery [address] [place] [address] Sharon Paulino MD [address] [facility] [address] [place] [address] 12/15/2024 7:30 AM EDT - 12/15/2024 10:55 AM EDT Surgery [facility] General Surgery [address] [place] [address] Sharon Paulino MD [address] [facility] [address] [place] [address] LEFT SHOULDER TOTAL ARTHROPLASTY REVISION TO COURTNEY-ARTHROPLASTY POSSIBLE REVISION TO REVERSE TOTAL SHOULDER REPLACEMENT 12/25/2024 1:30 PM EDT Office Visit [facility] Orthopa[facility] Center, [place] [address] Sharon Paulino MD [address] [facility] [address] [place] [address] post op shoulder Scheduled Procedures Name Priority [...] Annual Wellness Visit (Medicare) 05/08/2024 COVID-19 Vaccine (7 - 2023- season) 2024 02/20/2024, 02/09/2023, 01/25/2022, Additional history [...] ID:Not on file Type:Not on file Address: [address]
--- OUTSIDE RECORDS SUMMARY | 2024-11-30 01:35 | XMS_ITS | Encounter Summary ---
Author Organization [employer] ([place], [place], [place], [place]) Address [address] [place] [address] Care Team Providers Care Social Services Analyst Name Role Phone [facility], Provider Not In The System Primary Care Provider Unavailable Encounter Details Date Type Department Care Team (Late st Contact Info) Description 04/28/2019 Transcribed Document [facility] Family Medicine [facility] [place] [address] ProviderJean-Claude MD [address] [place], [place] [id number] Social History Tobacco Use Types Packs/Day Years Used Date Smoking Tobacco: Never Assessed Comments Unknown Sex and Gender Information Value Date Recorded Sex Assigned at Not on file Legal Sex Female 5:42 PM CDT Gender Identity Not on file Sexual Orientation Not on file documented as of this encounter Miscellaneous Notes * Cerner Conversion Note - Historical ProviderMD - 04/28/2019 7:06 AM CANDY SPREADER HELPER Pre Procedure Adult Entered On: 04/28/2019 7:12 EST Performed On: 04/28/2019 7:06 EST by ISAMAR MORRISON RN Height and Weight, Clinical Dosing Height Source : Stated Height Entry Format : [place] Height, Feet : 5 ft(Converted to: 152 cm, 60 Inch) Height, Inches : 2 Inch(Converted to: 0 ft 2 Inch, 5.08 cm) Clinical Height : 157.48 cm Weight Source : Standing scale Weight Entry Format : [place] Clinical Dosing Weight : 85 kg Weight, Pounds : 187 lb Body Surface Area (BSA) : 1.86 m2 Body Mass Index : 34.3 kg/m2 (HI) [place] Body Weight : 50 kg ISAMAR MORRISON [...] ISAMAR MORRISON RN - 04/28/2019 7:06 EST [place] Suicide Severity Rating Scale (C-SSRS) CSSRS Past [...] Obtained From : Patient Primary Language : Persian Preferred Communication Mode : Verbal Communication Barrier [...] Scale Risk Level : 0-24 Low Risk [place] Fall Interventions : Bed in low position, [...] form. Electronically signed by Leslee Olvera Conversion Newspaper Press Operator Apprentice Cerner at 07/23/2022 4:25 PM CDT documented in this encounter Plan of Treatment Not on file documented as of this encounter Visit Diagnoses Not on filedocumented in this encounter Care Teams Social Services Analyst Relationship Specialty Start Date End Date Leslee, Provider Not In The System, [place] [address] PCP - General 04/16/23 documented as of this encounter
--- OUTSIDE RECORDS SUMMARY | 2024-11-30 01:35 | XMS_ITS | Referral Summary ---
Author Organization [employer] ([place], [place], [place], [place]) Address [address] [place] [address] Care Team Providers Care Pet Sitting Name Role Phone [facility], Provider Not In The System Primary Care [...] Date Dereje rded Speak language other than Japanese at home Not on file 04/12/2023 Want [...] of Treatment Not on file Care Teams Pet Sitting Relationship Specialty Start Date End Date [facility], Provider Not In The System, [place] [address] PCP - General 04/16/23
--- OUTSIDE RECORDS SUMMARY | 2024-11-30 01:35 | XMS_ITS | Encounter Summary ---
Author Organization [facility] Address [address] [place] [id number] Care Team Providers Care Collar Setter Name Role Phone GabrielTimothy armenta Primary Care Provider [phone] Reason for Visit * Reason Comments Med Refill Encounter Details Date Type Department Care Team (Late st Contact Info) Description 12/22/2021 Refill [facility] [address] [place] [address] Connor Nunez MD [address] [place] [address] Chronic arthritis associated with viral [...] documented as of this encounter Care Teams Collar Setter Relationship Specialty Start Date End Date Timothy Granda DO [address] [place] [address] [place]A [place] [address] PCP - General Internal Medicine 06/12/23 documented as of this encounter
--- OUTSIDE RECORDS SUMMARY | 2024-11-30 01:35 | XMS_ITS ---
Author Organization [facility] Address [address] [place] [id number] Care Team Providers Care Enterprise Services Manager Name Role Phone Timothy Granda DO Primary Care Provider [phone] Hepatitis C Program Status:Paused (Paused) Start date:08/03/2022 Enrollment date:08/03/2022 Enrollment reason:HCV Continued Care and Services Coordination
--- OUTSIDE RECORDS SUMMARY | 2024-11-30 01:35 | XMS_ITS | Encounter Summary ---
Author Organization [employer] ([place], [place], [place], [place]) Address [address] [place] [address] Care Team Providers Care Comptometer Operator Name Role Phone [facility], Provider Not In The System Primary Care Provider Unavailable Encounter Details Date Type Department Care Team (Late st Contact Info) Description 04/28/2019 Transcribed Document [facility] [place] [address] ProviderJean-Claude MD [facility] [place] [id number] Social History Tobacco Use Types Packs/Day Years Used Date Smoking Tobacco: Never Assessed Comments Unknown Sex and Gender Information Value Date Recorded Sex Assigned at Not on file Legal Sex Female 5:42 PM CDT Gender Identity Not on file Sexual Orientation Not on file documented as of this encounter Miscellaneous Notes * Cerner Conversion Note - Historical ProviderMD - 04/28/2019 8:29 AM EMPLOYEE TRAINING SPECIALIST Pain Assessment Entered On: 04/28/2019 9:06 EST [...] on filedocumented in this encounter Care Teams Comptometer Operator Relationship Specialty Start Date End Date Leslee, Provider Not In The System, [place] [address] PCP - General 04/16/23 documented as of this encounter
--- OUTSIDE RECORDS SUMMARY | 2024-11-30 01:36 | XMS_ITS | Clinical Summary ---
Author Organization [facility] Address [address] [place] [address] Phone Care Team Providers Care Mines Inspector Name Role Phone Unavailable Primary Care Provider [...] Insurance MEDICARE [place] PART A AND B [employer]
--- OUTSIDE RECORDS SUMMARY | 2024-11-30 01:36 | XMS_ITS | Encounter Summary ---
Author Organization [facility] Address [address] [facility], [address] [place] [address] Care Team Providers Care Child And Family Therapist Name Role Phone Unavailable Primary Care Provider Unavailabl e Reason for Visit * Reason Onset Date Comments Surgery Scheduling 10/10/2024 Encounter Details Date Type Department Care Team (Late st Contact Info) Description 10/10/2024 Telephone [facility] [address] [place] [address] Sharon Paulino MD [address] [place] [address] [address] [place] [address] Surgery Scheduling Social History Tobacco [...] Description 12/04/2024 1:30 PM EDT Office Visit [facility], [address] [place] [address] Sharon Paulino MD [address] [facility] [address] [address] Pre-op shoulder 12/15/2024 7:30 AM EDT Hospital Encounter [facility] General Surgery [facility] [place] [address] Sharon Paulino MD [address] [facility] [address] [place] [address] 12/15/2024 7:30 AM EDT - 12/15/2024 10:55 AM EDT Surgery [facility] General Surgery [facility] [place] [address] Sharon Paulino MD [address] [facility] [address] [place] [address] LEFT SHOULDER TOTAL ARTHROPLASTY REVISION TO COURTNEY-ARTHROPLASTY POSSIBLE REVISION TO REVERSE TOTAL SHOULDER REPLACEMENT 12/25/2024 1:30 PM EDT Office Visit [facility], [address] [address] Sharon Paulino MD [address] [facility] [address] [place] [phone] post op shoulder Scheduled Procedures Name Priority Associated Diagnoses Date/Ti me SHOULDER TOTAL ARTHROPLASTY REVISION Left shoulder pain 12/15/2024 7:30 AM EDT documented as of this encounter Visit Diagnoses Not on filedocumented in this encounter
--- OUTSIDE RECORDS SUMMARY | 2024-11-30 01:36 | XMS_ITS | Encounter Summary ---
Author Organization [employer] ([place], [place], [place], [place]) Address [address] [place] [address] Care Team Providers Care Neurology Technologist Name Role Phone [facility], Provider Not In The System Primary Care Provider Unavailable Encounter Details Date Type Department Care Team (Late st Contact Info) Description 04/28/2019 Transcribed Document [facility] [address] [place] [address] ProviderJean-Claude MD [address] [place], [place] [phone] Social History Tobacco Use Types Packs/Day Years Used Date Smoking Tobacco: Never Assessed Comments Unknown Sex and Gender Information Value Date Recorded Sex Assigned at Not on file Legal Sex Female 5:42 PM CDT Gender Identity Not on file Sexual Orientation Not on file documented as of this encounter Miscellaneous Notes * Cerner Conversion Note - Historical ProviderMD - 04/28/2019 10:01 AM STRAIGHTEDGE WORKER [place] [id number] MOISE PANDEY :1950 Visit Time:04/28/2019 What to do next Your Diagnosis Pain in unspecified knee, Pain in unspecified knee Instructions From Your Care Team No driving or legal decision for 24 hours after anesthesia. may advance diet as tolerated. May take Old [place] 10-325mg 1 tablet by mouth every 4-6 [...] Comments Appointment has been made Where: [address] [facility] [address] [place] [address]- Medications What How Much When Instructions Next [...] activities are safe for you. ??? Take tfsh-lfc-keceuje and prescription medicines only as told by [...] 06/25/2001 Document Revised: 11/02/2017 Document Reviewed: 11/02/2017 [employer] Patient Education ?? 2019 [employer] Knee Arthroscopy, Care After Refer to [...] activities are safe for you. ??? Perform vlgsx-sb-gtalcj exercises only as directed by your health [...] 10/06/2005 Document Revised: 08/18/2016 Document Reviewed: 03/15/2015 [employer] Patient Education ?? 2018 [employer]. acetaminophen and hydrocodone (a SEET a MIN oh fen and ladonna droe KOE done) Hycet, Lorcet, Old Fort, Verdrocet, Vicodin, Xodol, Zamicet What is the [...] may report side effects to FDA at 4-387-SEK-9369. What other drugs will affect acetaminophen and [...] affect acetaminophen and hydrocodone, including prescription and edaw-xys-oqkjiqo medicines, vitamins, and herbal products. Not all [...] to ensure that the information provided by [employer]. ('[employer]') is accurate, up-to-date, and complete, but no guarantee is made to that effect. Drug information contained herein may be time sensitive. [employer] information has been compiled for use by healthcare practitioners and consumers in the [place] and therefore [employer] does not warrant that uses outside of the [place] are appropriate, unless specifically indicated otherwise. [employer] drug information does not endorse drugs, diagnose patients or recommend therapy. Here@ Networks drug information is an informational resource designed [...] effective or appropriate for any given patient. [employer] does not assume any responsibility for any aspect of healthcare administered with the aid of information [employer] provides. The information contained herein is not intended to cover all possible uses, directions, precautions, warnings, drug interactions, allergic reactions, or adverse effects. If you have questions about the drugs you are taking, check with your doctor, nurse or pharmacist. Copyright 6615-7994 [employer]. Version: 15.02. Revision Date: 02/04/2018. Emergency Awareness [...] Assistance with quitting is available by contacting 1-855-FCRL-NOW. This is a free resource providing counseling, [...] was given the opportunity to ask questions. Patient/Commercial Singer Name: Patient/Commercial Singer Signature: Relationship to Patient: Clinician/Hospital Commercial Singer Signature: Date: documented in this encounter Plan of Treatment Not on file documented as of this encounter Visit Diagnoses Not on filedocumented in this encounter Care Teams Neurology Technologist Relationship Specialty Start Date End Date Deejay, Provider Not In The System, [place] [address] PCP - General 04/16/23 documented as of this encounter
--- OUTSIDE RECORDS SUMMARY | 2024-11-30 01:36 | XMS_ITS | Encounter Summary ---
Author Organization [facility] Address [address] [facility], [address] [place] [address] Care Team Providers Care Lift Mechanic Name Role Phone Unavailable Primary Care Provider Unavailabl e Reason for Visit * Reason Onset Date Comments Surgery Scheduling 11/20/2024 LT SHDLR Encounter Details Date Type Department Care Team (Late Contact Info) Description 11/20/[address] [facility] [address] [facility] [address] [place] [phone] [place] [address] [place] [address] [address] [place] [address] Surgery Scheduling (LT SHDLR) Social [...] Description 12/04/2024 1:30 PM EDT Office Visit [facility] Sports Medicine and Orthopaedic [place], [address] [address] Sharon Paulino MD [address] [place] [address] Pre-op shoulder 12/15/2024 7:30 AM EDT Hospital Encounter [facility] General Surgery [address] [place] [address] Sharon Paulino MD [address] [employer] [address] [place] [address] 12/15/2024 7:30 AM EDT - 12/15/2024 10:55 AM EDT Surgery [facility] General Surgery [address] [place] [address] Sharon Paulino MD [address] [employer] [facility] [address] [place] [address] LEFT SHOULDER TOTAL ARTHROPLASTY REVISION TO COURTNEY-ARTHROPLASTY POSSIBLE REVISION TO REVERSE TOTAL SHOULDER REPLACEMENT 12/25/2024 1:30 PM EDT Office Visit [facility] Orthopa[facility] [place], [address] [id number] Sharon Paulino MD [address] [facility] [address] [place] [address] post op shoulder Scheduled Procedures Name Priority Associated Diagnoses Date/Ti me SHOULDER TOTAL ARTHROPLASTY REVISION Left shoulder pain 12/15/2024 7:30 AM EDT documented as of this encounter Visit Diagnoses Not on filedocumented in this encounter
--- OUTSIDE RECORDS SUMMARY | 2024-11-30 01:36 | XMS_ITS | Encounter Summary ---
Author Organization [employer] ([place], [place], [place], [place]) Address [address] [place] [address] Care Team Providers Care Superintendent Horticulture Name Role Phone [facility], Provider Not In The System Primary Care Provider Unavailable Encounter Details Date Type Department Care Team (Late st Contact Info) Description 04/28/2019 Transcribed Document [facility] Family Medicine [facility] [place] [address] ProviderJean-Claude MD [address] [place], [place] [id number] Social History Tobacco Use Types Packs/Day Years Used Date Smoking Tobacco: Never Assessed Comments Unknown Sex and Gender Information Value Date Recorded Sex Assigned at Not on file Legal Sex Female 5:42 PM CDT Gender Identity Not on file Sexual Orientation Not on file documented as of this encounter Miscellaneous Notes * Cerner Conversion Note - Jean-Claude ProviderMD - 04/28/2019 9:47 AM ACOUSTICAL TILE PATTERNMAKER Patient Education Materials Follows: General Anesthesia, Adult, [...] activities are safe for you. ??? Take ospn-acs-yrkeuzt and prescription medicines only as told by [...] 06/25/2001 Document Revised: 11/02/2017 Document Reviewed: 11/02/2017 [employer]vamp Interactive Patient Education ? 2019 [employer]. Knee Arthroscopy, Care After Refer to [...] activities are safe for you. ??? Perform lmfnk-oa-wuaerf exercises only as directed by your health [...] 03/15/2015 Elsevier Interactive Patient Education ? 2018 [employer]. Electronically signed by Leslee Olvera Conversion Supervisor Newspaper Deliveries Cerner at 07/23/2022 4:28 PM CDT documented in this encounter Plan of Treatment Not on file documented as of this encounter Visit Diagnoses Not on filedocumented in this encounter Care Teams Superintendent Horticulture Relationship Specialty Start Date End Date Leslee, Provider Not In The System, [place] [address] PCP - General 04/16/23 documented as of this encounter
--- OUTSIDE RECORDS SUMMARY | 2024-11-30 01:36 | XMS_ITS | Encounter Summary ---
Author Organization [facility] Address [address] [facility], [address] [place] [address] Care Team Providers Care Bender Hand Name Role Phone Unavailable Primary Care Provider Unavailabl e Encounter Details Date Type Department Care Team (Latest Contact Info) Description 11/05/2024 Prep for Procedure [facility] [address] [id number] Laisha Galvan MA History of total replacement [...] Description 12/04/2024 1:30 PM EDT Office Visit [facility], [address] [address] Sharon Paulino MD [address] [place] [address] [address] [place] [address] Pre-op shoulder 12/15/2024 7:30 AM EDT Hospital Encounter [facility] General Surgery [address] [place] [address] Sharon Paulino MD [address] [facility] [address] [place] [address] 12/15/2024 7:30 AM EDT - 12/15/2024 10:55 AM EDT Surgery [facility] General Surgery [address] [place] [address] Sharon Paulino MD [address] [facility] [address] [place] [address] LEFT SHOULDER TOTAL ARTHROPLASTY REVISION TO COURTNEY-ARTHROPLASTY POSSIBLE REVISION TO REVERSE TOTAL SHOULDER REPLACEMENT 12/25/2024 1:30 PM EDT Office Visit [facility], [place] [address] Sharon Paulino MD [address] [facility] [address] [place] [address] post op shoulder Scheduled Procedures Name Priority [...]
--- OUTSIDE RECORDS SUMMARY | 2024-11-30 01:36 | XMS_ITS | Encounter Summary ---
Author Organization [employer] ([place], [place], [place], [place]) Address [address] [place] [address] Care Team Providers Care Clinical Abstractor Name Role Phone [facility], Provider Not In The System Primary Care Provider Unavailable Encounter Details Date Type Department Care Team (Late st Contact Info) Description 04/28/2019 Transcribed Document [facility] [place] Medicine [address] [place] [address] ProviderJean-Claude MD [address] [place], [place] [id number] Social History Tobacco Use Types Packs/Day Years Used Date Smoking Tobacco: Never Assessed Comments Unknown Sex and Gender Information Value Date Recorded Sex Assigned at Not on file Legal Sex Female 5:42 PM CDT Gender Identity Not on file Sexual Orientation Not on file documented as of this encounter Miscellaneous Notes * Cerner Conversion Note - Historical ProviderMD - 04/28/2019 9:51 AM DENTAL INSURANCE BILLER [place] [id number] MOISE PANDEY :1950 Visit Time:04/28/2019 What to do next Your Diagnosis Pain in unspecified knee, Pain in unspecified knee Instructions From Your Care Team No driving or legal decision for 24 hours after anesthesia. may advance diet as tolerated. May take Palmdale 10-325mg 1 tablet by mouth every 4-6 [...] Within 2 to 3 days Where: [address] [place] [address]- Medications What How Much When Instructions Next [...] activities are safe for you. ??? Take pdrk-zow-darlrzq and prescription medicines only as told by [...] 06/25/2001 Document Revised: 11/02/2017 Document Reviewed: 11/02/2017 BuffaloPacific Interactive Patient Education ?? 2019 [employer]. Knee Arthroscopy, Care After Refer to [...] activities are safe for you. ??? Perform ycyzr-ri-svzreu exercises only as directed by your health [...] 10/06/2005 Document Revised: 08/18/2016 Document Reviewed: 03/15/2015 [employer] Interactive Patient Education ?? 2018 [employer]. acetaminophen and hydrocodone (a SEET a MIN oh fen and ladonna droe KOE done) Hycet, Lorcet, Palmdale, Verdrocet, Vicodin, Xodol, Zamicet What is the [...] may report side effects to FDA at 0-145-WLX-4173. What other drugs will affect acetaminophen and [...] affect acetaminophen and hydrocodone, including prescription and ripj-axi-wphunsu medicines, vitamins, and herbal products. Not all [...] to ensure that the information provided by [employer]. ('Mult[employer]') is accurate, up-to-date, and complete, but no guarantee is made to that effect. Drug information contained herein may be time sensitive. [employer] information has been compiled for use by healthcare practitioners and consumers in the [place] and therefore [employer] does not warrant that uses outside of the [place] are appropriate, unless specifically indicated otherwise. [employer] drug information does not endorse drugs, diagnose patients or recommend therapy. [employer] drug information is an informational resource designed [...] effective or appropriate for any given patient. [employer] does not assume any responsibility for any aspect of healthcare administered with the aid of information [employer] provides. The information contained herein is not intended to cover all possible uses, directions, precautions, warnings, drug interactions, allergic reactions, or adverse effects. If you have questions about the drugs you are taking, check with your doctor, nurse or pharmacist. Copyright 7682-8326 Panaya. Version: 15.02. Revision Date: 02/04/2018. Emergency Awareness [...] Assistance with quitting is available by contacting 4-191-CZTD-NOW. This is a free resource providing counseling, [...] was given the opportunity to ask questions. Patient/Patient Services Assistant Name: Patient/Patient Services Assistant Signature: Relationship to Patient: Clinician/Hospital Patient Services Assistant Signature: Date: documented in this encounter Plan of Treatment Not on file documented as of this encounter Visit Diagnoses Not on filedocumented in this encounter Care Teams Clinical Abstractor Relationship Specialty Start Date End Date Leslee, Provider Not In The System, [place] [address] PCP - General 04/16/23 documented as of this encounter
--- OUTSIDE RECORDS SUMMARY | 2024-11-30 01:36 | XMS_ITS | Encounter Summary ---
Author Organization [facility] Address [address] [facility], [address] [place] [address] Care Team Providers Care Combustion Analyst Name Role Phone Unavailable Primary Care Provider Unavailabl e Reason for Visit * Reason Onset Date Comments IMAGING 09/05/2024 Encounter Details Date Type Department Care Team (Late st Contact Info) Description 09/05/2024 Telephone [facility] [address] [place] [address] Sharon Paulino MD [address] [place] [address] [address] [place], [place] [id number] IMAGING Social History Tobacco Use Types Packs/Day [...] Description 12/04/2024 1:30 PM EDT Office Visit [facility], [place] [phone] Sharon Paulnio MD [address] [facility] [address], [place] [id number] Pre-op shoulder 12/15/2024 7:30 AM EDT Hospital Encounter [facility] General Surgery [address] [place] [address] Sharon Paulino MD [address] [facility] [address] [place] [address] 12/15/2024 7:30 AM EDT - 12/15/2024 10:55 AM EDT Surgery [facility] General Surgery [facility] [place] [address] Sharon Paulino MD [address] [facility] [address] [place] [address] LEFT SHOULDER TOTAL ARTHROPLASTY REVISION TO COURTNEY-ARTHROPLASTY POSSIBLE REVISION TO REVERSE TOTAL SHOULDER REPLACEMENT 12/25/2024 1:30 PM EDT Office Visit [facility], [address] [address] Sharon Paulino MD [address] [facility] [address] [place] [address] post op shoulder Scheduled Procedures Name Priority Associated Diagnoses Date/Ti me SHOULDER TOTAL ARTHROPLASTY REVISION Left shoulder pain 12/15/2024 7:30 AM EDT documented as of this encounter Visit Diagnoses Not on filedocumented in this encounter
--- OUTSIDE RECORDS SUMMARY | 2024-11-30 01:36 | XMS_ITS | Encounter Summary ---
Author Organization [employer] ([place], [place], [place], [place]) Address [address] [place] [address] Care Team Providers Care Agency Cashier Name Role Phone [facility], Provider Not In The System Primary Care Provider Unavailable Encounter Details Date Type Department Care Team (Late st Contact Info) Description 04/28/2019 Transcribed Document [facility] [place] [address] [place] [address] ProviderJean-Claude MD [address] [place], [place] [id number] Social History Tobacco Use Types Packs/Day Years Used Date Smoking Tobacco: Never Assessed Comments Unknown Sex and Gender Information Value Date Recorded Sex Assigned at Not on file Legal Sex Female 5:42 PM CDT Gender Identity Not on file Sexual Orientation Not on file documented as of this encounter Miscellaneous Notes * Cerner Conversion Note - Historical ProviderMD - 04/28/2019 8:05 AM LITERATURE TEACHER [facility] Main OR PACU Summary Primary Physician: MADISON OSPINA MD-ORShantel Finalized Date/Time: 04/28/19 09:40:55 Pt. Name: MOISE ATKINSON/Sex: 1950 Female Med Rec #: [id number] Physician: MADISON OSPINA MD-ORT Financial #: [id number] Pt. Type: O Room/Bed: Admit/Disch: 04/28/19 05:30:00 - Institution: [facility] OR PACU Case Times Entry 1 In PACU I 04/28/19 08:38:00 Ready for PACU 04/28/19 09:33:00 Discharge Discharge from PACU 04/28/19 09:33:00 I Last Modified By: Eduarda Patel Rn Patient Care Bedside 04/28/19 09:40:12 [facility] Main OR PACU Case Times Audit 04/28/19 09:40:12 Marine Diesel Technician: SADE Modifier: SADE <+> 1 Ready for PACU Discharge <+> 1 Discharge from PACU I Finalized By: Eduarda Patel Rn Patient Care Bedside Document Signatures Signed By: Eduarda Patel Rn Patient Care Bedside 04/28/19 09:40 Electronically signed by May [facility] Conversion Property Insurance Agent Cerner at 07/23/2022 4:28 PM CDT documented in this encounter Plan of Treatment Not on file documented as of this encounter Visit Diagnoses Not on filedocumented in this encounter Care Teams Agency Cashier Relationship Specialty Start Date End Date [facility], Provider Not In The System, [place] [address] PCP - General 04/16/23 documented as of this encounter
--- OUTSIDE RECORDS SUMMARY | 2024-11-30 01:36 | XMS_ITS | Clinical Summary ---
Author Organization [facility] Address [address] [place] [address] Care Team Providers Care Quality Assurance Assistant Name Role Phone Timothy Granda DO Primary Care Provider [phone] Allergies Active Allergy Reactions Criticality Noted Date [...] preservative free 02/14/2015 Influenza, trivalent, adjuvanted 12/22/2019 [employer]emoji COVID-19 Vaccine (Blue Cap) 18+ 06/10/19 Moderna COVID-19 Vaccine (Re d Cap) 12+ years 07/18/2021,01/27/2021 Moderna COVID-19 Vaccine Bivalent 6months+ 01/25 PPD Skin Test (TB Skin Test) 09/04/2022 [employer] Covid-19 Vaccine 12y+ , Mahesh Protein, PF, [...] drink first t mini in the morning (EYE-CUSTOMER PROJECT MANAGER) to steady your nerves or to get [...] 02/14/2015 [facility]-Medicare Annual Wellness (AWV) 03/13/2023 03/13/2022 [id number] Vaccine ( season) 2023 02/09/2023, 01/25/2022, 07/18/2021, [...] Negative 08/02/2023 7:49 PM EDT [facility] Hepatitis A Antibody IgM Negative Negative 08/02/2023 7:49 PM EDT [facility] Hepatitis B Core Antibody IgM Negative Negative 08/02/2023 7:49 PM EDT [facility] Blood Venous blood specimen / Unknown Venipuncture / Unknown 08/02/2023 2:56 PM EDT 08/02/2023 3:22 PM EDT Narrative [facility] - 08/02/2023 7:49 PM EDT Hepatitis [...] ORDERABLES Final R esult Performing Organization Address City/State/[facility] Co de Phone Number [facility] [address] [place] [address] * Flexible Sigmoidoscopy (02/21/2023 10:25 AM EST) [...] MD Adam Rooks, MD Proceduralist vice president sales and marketing Adama Montes CRNA CRNA Harris, Kristi A, RN Endo Nurse Butch Little MD Fellow Tete Whitmore Endo Transaction Processor Preprocedure A history and physical has been [...] of bowel preparation was evaluated using the [place] Bowel Preparation Scale with scores of: left [...] of bowel preparation was evaluated using the [place] Bowel Preparation Scale with scores of: right [...] Most Recently Relevant to Health Maintenance Insurance [facility] MEDICARE Member Subscriber Plan / Payer (Ef fective 2013-Present) Name:Farrah Atkinson Member ID:[id number] Relation to Subscriber:Self Name:Farrah Atkinson Subscriber ID:[id number] Payer ID:MEDICARE Group ID:Not on file Type:Medicare Address: [place] [phone] Advance Directives * Full Code (Latest Code [...] Patient has decision-making capacity? Yes Care Teams Quality Assurance Assistant Relationship Specialty Start Date End Date Timothy Granda DO [address] [place] [address] PCP - General 05/25/23
--- OUTSIDE RECORDS SUMMARY | 2024-11-30 01:36 | XMS_ITS | Encounter Summary ---
Author Organization [employer] ([place], [place], [place], [place]) Address [address] [place] [address] Care Team Providers Care Accounts Receivable Processor Name Role Phone [facility], Provider Not In The System Primary Care Provider Unavailable Encounter Details Date Type Department Care Team (Late st Contact Info) Description 04/28/2019 Transcribed Document [facility] [place] [address] [place] [address] ProviderJean-Claude MD [address] [place], [place] [phone] Social History Tobacco Use Types Packs/Day Years Used Date Smoking Tobacco: Never Assessed Comments Unknown Sex and Gender Information Value Date Recorded Sex Assigned at Not on file Legal Sex Female 5:42 PM CDT Gender Identity Not on file Sexual Orientation Not on file documented as of this encounter Miscellaneous Notes * Cerner Conversion Note - Historical ProviderMD - 04/28/2019 8:05 AM WARP TRUCKER [facility] Main OR PreOp Summary Primary Physician: MADISON OSPINA MD-ORT Finalized Date/Time: 04/28/19 09:32:12 Pt. Name: MOISE ATKINSON/Sex: 1950 Female Med Rec #: [id number] Physician: MADISON OSPINA MD-ORT Financial #: [id number] Pt. Type: O Room/Bed: Admit/Disch: 04/28/19 05:30:00 - Institution: [facility] PreOp Case Times Entry 1 In Preop 04/28/19 05:40:00 Ready for Holding n/a Room Patient Ready for 04/28/19 07:15:00 Surgery Patient Out of Preop 04/28/19 07:36:00 Patient Out of n/a Holding Room Last Modified By: ISAMAR MORRISON, SPENCER 04/28/19 09:32:08 [facility] PreOp Case Times Audit 04/28/19 09:32:08 Call Center Assistant: [email or web address] Modifier: [email or web address] <+> 1 Patient Out of Preop Finalized By: ISAMAR MORRISON, RN Document Signatures Signed By: ISAMAR MORRISON RN 04/28/19 09:32 Electronically signed by May [facility] Conversion Supervisor Contact And Service Clerks Cerner at 07/23/2022 4:31 PM CDT documented in this encounter Plan of Treatment Not on file documented as of this encounter Visit Diagnoses Not on filedocumented in this encounter Care Teams Accounts Receivable Processor Relationship Specialty Start Date End Date [facility], Provider Not In The System, [place] [address] PCP - General 04/16/23 documented as of this encounter
--- OUTSIDE RECORDS SUMMARY | 2024-11-30 01:36 | XMS_ITS | Encounter Summary ---
Author Organization [facility] Address [address] [facility] [place] [address] Care Team Providers Care Straightedge Machine Operator Helper Name Role Phone Unavailable Primary Care Provider Unavailabl e Reason for Visit * Reason Onset Date Comments Care Coordination 11/21/2024 Nurse navigato r Encounter Details Date Type Department Care Team (Late Contact Info) Description 11/21/2024 Telephone [facility] Orthopedic and Sports Medicine [address] [address] Willa Lan RN Care Coordination [...] 12/04/2024 1:30 PM EDT Office Visit [facility] Sports Medicine and Orthopaedic [place], [address] [place], [place] [id number] Sharon Paulino MD [address] [place] [address] [address] [place] [address] Pre-op shoulder 12/15/2024 7:30 AM EDT Hospital Encounter [facility] General Surgery [address] [place] [address] Sharon Paulino MD [address] [facility] [address] [place] [address] 12/15/2024 7:30 AM EDT - 12/15/2024 10:55 AM EDT Surgery [facility] General Surgery [address] [place] [address] Sharon Paulino MD [address] [place] [address] LEFT SHOULDER TOTAL ARTHROPLASTY REVISION TO COURTNEY-ARTHROPLASTY POSSIBLE REVISION TO REVERSE TOTAL SHOULDER REPLACEMENT 12/25/2024 1:30 PM EDT Office Visit [facility], [place] [address] Sharon Paulino MD [address] [facility] [address] [facility] [place] [place] [address] post op shoulder Scheduled Procedures Name Priority Associated Diagnoses Date/Ti me SHOULDER TOTAL ARTHROPLASTY REVISION Left shoulder pain 12/15/2024 7:30 AM EDT documented as of this encounter Visit Diagnoses Not on filedocumented in this encounter
--- OUTSIDE RECORDS SUMMARY | 2024-11-30 01:36 | XMS_ITS | Encounter Summary ---
Author Organization [employer] ([place], [place], [place], [place]) Address [address] [place] [address] Care Team Providers Care Drapery Maker Name Role Phone [facility], Provider Not In The System Primary Care Provider Unavailable Encounter Details Date Type Department Care Team (Late st Contact Info) Description 04/28/2019 Transcribed Document [facility] [address] [place] [address] ProviderJean-Claude MD [address] [place], [place] [phone] Social History Tobacco Use Types Packs/Day Years Used Date Smoking Tobacco: Never Assessed Comments Unknown Sex and Gender Information Value Date Recorded Sex Assigned at Not on file Legal Sex Female 5:42 PM CDT Gender Identity Not on file Sexual Orientation Not on file documented as of this encounter Miscellaneous Notes * Cerner Conversion Note - Historical ProviderMD - 04/28/2019 8:29 AM CNA Pain Assessment Entered On: 04/28/2019 9:28 EST [...] on filedocumented in this encounter Care Teams Drapery Maker Relationship Specialty Start Date End Date [facility], Provider Not In The System, [place] [address] PCP - General 04/16/23 documented as of this encounter
--- OUTSIDE RECORDS SUMMARY | 2024-11-30 01:36 | XMS_ITS | Clinical Summary ---
Author Organization [employer] ([place], [place], [place], [place]) Address [address] [place] [address] Care Team Providers Care Loftsman Name Role Phone [facility], Provider Not In The System [...] Date Dereje rded Speak language other than Namibian at home Not on file 04/12/2023 Want [...] - 1-dose 75+ series) 09/26/2026 Care Teams Loftsman Relationship Specialty Start Date End Date [facility], Provider Not In The System, [place] [address] PCP - General 04/16/23
--- OUTSIDE RECORDS SUMMARY | 2024-11-30 01:36 | XMS_ITS | Encounter Summary ---
Author Organization [email or web address] ([place], [place], [place], [place]) Address [address] [place] [address] Care Team Providers Care Project Management Manager Name Role Phone [facility], Provider Not In The System Primary Care Provider Unavailable Encounter Details Date Type Department Care Team (Late st Contact Info) Description 04/28/2019 Transcribed Document [facility] Family Medicine [address] [place] [address] ProviderJean-Claude MD [address] [place], [place] [phone] Social History Tobacco Use Types Packs/Day Years Used Date Smoking Tobacco: Never Assessed Comments Unknown Sex and Gender Information Value Date Recorded Sex Assigned at Not on file Legal Sex Female 5:42 PM CDT Gender Identity Not on file Sexual Orientation Not on file documented as of this encounter Miscellaneous Notes * Cerner Conversion Note - Historical ProviderMD - 04/28/2019 8:05 AM SUPERINTENDENT HORTICULTURE [facility] Main OR PostOp Summary Primary Physician: MADISON OPSINA MD-ORT Finalized Date/Time: 04/28/19 10:18:29 Pt. Name: MOISE ATKINSON/Sex: 1950 Female Med Rec #: [id number] Physician: MADISON OSPINA MD-ORT Financial #: [id number] Pt. Type: O Room/Bed: Admit/Disch: 04/28/19 05:30:00 - Institution: [facility] Main OR PostOp Case Times Entry 1 In PACU II 04/28/19 09:36:00 Ready for PACU II 04/28/19 10:15:00 Discharge Discharge from PACU 04/28/19 10:15:00 II Last Modified By: Shanel Conrad RN 04/28/19 10:18:24 Finalized By: Shanel Conrad, RN Document Signatures Signed By: Shanel Conrad RN 04/28/19 10:18 Electronically signed by May [facility] Conversion Dressage Instructor Cerner at 07/23/2022 4:27 PM CDT documented in this encounter Plan of Treatment Not on file documented as of this encounter Visit Diagnoses Not on filedocumented in this encounter Care Teams Project Management Manager Relationship Specialty Start Date End Date [facility], Provider Not In The System, [place] [address] PCP - General 04/16/23 documented as of this encounter
--- OUTSIDE RECORDS SUMMARY | 2024-11-30 01:36 | XMS_ITS | Encounter Summary ---
Author Organization Healthcare Address [address] [place] [address] Care Team Providers Care Senior Radiation Protection Technician Name Role Phone Chandra Leahy MD Primary Care Provider + [phone] Timothy Granda DO Primary Care Provider [phone] Sadia Campo MACHINE QUILT STUFFER Unavailable Unavailable Encounter Details Date Type Department Care Team (Late st Contact Info) Description 08/14/2022 Lab Requisition [facility] [address] [place] [address] Dilip Lloyd MD [address] [address] Encounter for general adult medical [...] drink first t mini in the morning (EYE-CARDIOLOGY PHYSICIAN ASSISTANT) to steady your nerves or to get [...] LAB MICROBIOLOGY - GENERAL ORDERABLES Final Result [facility] [address] [place] [address] documented in this encounter Visit Diagnoses Diagnosis Encounter for general adult medical examination without abnormal findings documented in this encounter Additional Health Concerns Infection Onset Date Last Indicated Resolved Time COVID-19 Rule-Out 07/22/2023 07/22/2023 07/22/2023 12:14 PM EDT C. difficile Rule-Out 07/26/2023 08/01/20232023 1:07 AM EDT Gastrointestinal Rule-Out 08/02/2023 08/01/2023 3:00 AM EDT documented as of this encounter Care Teams Senior Radiation Protection Technician Relationship Specialty Start Date End Date Chandra Leahy MD [address] [place] [address] PCP - General 08/02/22 05/24/23 Timothy Granda DO [address] [place] [address] PCP - General 05/25/23 Sadia Campo, [place] [address] Power Brake Operator Grants Officer 08/03/22 06/21/24 documented as of this encounter
--- OUTSIDE RECORDS SUMMARY | 2024-11-30 01:36 | XMS_ITS | Encounter Summary ---
Author Organization [facility] ([place], [place], [place], [place]) Address [address] [place] [address] Care Team Providers Care Cartridge Filler Name Role Phone Sj, Provider Not In The System Primary Care Provider Unavailable Encounter Details Date Type Department Care Team (Late st Contact Info) Description 04/28/2019 Transcribed Document [facility] [address] ProviderJean-Claude MD [address] [place], [place] [id number] Social History Tobacco Use Types Packs/Day Years Used Date Smoking Tobacco: Never Assessed Comments Unknown Sex and Gender Information Value Date Recorded Sex Assigned at Not on file Legal Sex Female 5:42 PM CDT Gender Identity Not on file Sexual Orientation Not on file documented as of this encounter Miscellaneous Notes * Cerner Conversion Note - Jean-Claude ProviderMD - 04/28/2019 9:04 AM MANUFACTURING SUPERVISOR 2ND SHIFT DATE OF PROCEDURE: 04/28/2019 SURGEON: Timothy Foster [...] to the recovery room in satisfactory condition. /[id number] MD MICHAEL Trujillo/AQ / MICHAEL / MODL /[id number] documented in this encounter Plan of Treatment Not on file documented as of this encounter Visit Diagnoses Not on filedocumented in this encounter Care Teams Cartridge Filler Relationship Specialty Start Date End Date Leslee, Provider Not In The System, [place] [address] PCP - General 04/16/23 documented as of this encounter
--- NOTE | 2024-11-30 01:37 | CT_ITS ---
PROCEDURE INFORMATION: Exam: CT Abdomen And Pelvis With Contrast Exam date and time: 11/30/2024 2:53 AM Age: 74 years old Clinical indication: Nausea and vomiting and other: Increase ostomy output; Abdominal pain; Additional info: Ruq pain, n/v, increase ostomy output TECHNIQUE: Imaging protocol: Computed tomography of the abdomen and pelvis with contrast. Radiation optimization: All CT scans at this facility use at least one of these dose optimization techniques: automated exposure control; mA and/or kV adjustment per patient size (includes targeted exams where dose is matched to clinical indication); or iterative reconstruction. Contrast material: ISOVUE; Contrast volume: 75 ml; Contrast route: IV; COMPARISON: CT ABDOMEN W CON 11/17/2023 8:52 PM FINDINGS: Liver: Stable cyst. No mass. Gallbladder and biliary ducts: Unremarkable. No calcified stones. No ductal dilation. Pancreas: Unremarkable. Spleen: Unremarkable. Adrenal glands: Unremarkable. No mass. Kidneys and ureters: No nephroureterolithiasis or hydroureter. Stomach and bowel: Stable nonobstructive right lower quadrant mild parastomal hernia. Nonobstructive fluid-filled bowel loops.. Chronic postoperative changes of colon. Mild colonic ileus. Appendix: Not visualized. Intraperitoneal space: Unremarkable. No free air. No significant fluid collection. Vasculature: Ostial atherosclerotic calcification of celiac and superior mesenteric arteries. Lymph nodes: Unremarkable. No enlarged lymph nodes. Urinary bladder: Obscured by hip hardware susceptibility artifacts. Reproductive: Unremarkable as visualized. Bones/joints: Bilateral hip prosthesis. No acute findings. Soft tissues: Unremarkable. IMPRESSION: 1. Nonobstructive fluid-filled bowel loops. Correlate for low-grade enterocolitis symptoms. 2. Similar nonobstructive parastomal hernia.
--- NOTE | 2024-11-30 01:48 | PC.NURSE ---
PT belongings; Iliostomy supplies - wipes, powders, basket, new bags
--- NOTE | 2024-11-30 02:05 | ECG_ITS ---
APPROVED REPORT Exam: Resting ECG HR:109 bpm ECG Measurements Heart Rate 109 AXES TX 132 P 74 QRSd 73 QRS 54 QT 326 T 63 QTc 390 Conclusion SINUS TACHYCARDIA ABNORMAL RHYTHM ECG UNCONFIRMED REPORT Electronically signed by : ZHANE WOLFE, 12/01/2024 05:05:43
[2024-11-30] MEDS: ONDANSETRON 4MG/2ML VIAL 4 MG IV (02:17)
[2024-11-30] MEDS: LACTATED RINGERS 1000ML 1,000 ML 999 ML IV (02:17)
[2024-11-30] MEDS: AMLODIPINE 5MG TABLET 5 MG PO (02:17)
[2024-11-30] MEDS: MORPHINE 4MG/ML SYRINGE 4 MG IV ×2 (02:17→03:35)
[2024-11-30 02:19] LABS: Lactate Venous 2.3 mmol/L (0.4-2.0); VBG HCO3 25.0 mmol/L (23-30); VBG PCO2 41.4 mmol/L (35-51); VBG PH 7.40 mmol/L (7.31-7.41); VBG PO2 55.0 mmol/L (28-40)
[2024-11-30 02:24] LABS: Albumin Level 4.9 g/dl (3.5-5.0); Chloride 101 mmol/L (98-107); Potassium 4.3 mmoL/L (3.5-5.1); Sodium 137 mmol/L (136-145)
--- NOTE | 2024-11-30 02:25 | PC.NURSE ---
Emptied PT iliostomy bag. PT output was liquid with no formed BM
[2024-11-30 02:26] LABS: Lipase 73 U/L (23-300)
[2024-11-30 02:27] LABS: Adenovirus F 40/41, stool Not Detected (NotDetected); Clostridium Difficile A/B, PCR Not Detected (NotDetected); Cyclospora Cayetanesis Not Detected (NotDetected); Plesimonas Shigalloides, PCR Not Detected (NotDetected); Salmonella, PCR Not Detected (NotDetected); Shiga-like toxin E coli Not Detected (NotDetected); Shigella Enterovasive E coli Not Detected (NotDetected); Vibrio, PCR Not Detected (NotDetected); Yersinia Entercolitica, PCR Not Detected (NotDetected)
[2024-11-30 02:27] LABS: Alanine Aminotransferase 22 U/L (12-78); Albumin/Globulin Ratio 1.4 (1.1-1.8); Alkaline Phosphatase 145 U/L (38-126); Aspartate Amino Transferase 31 U/L (14-36); Bilirubin,Total 0.7 mg/dl (0.2-1.3); Blood Urea Nitrogen 32 mg/dl (7-17); Creatinine Clearance Estimated 34 mL/min (50-200); Creatinine,Serum 1.70 mg/dl (0.52-1.04); Estimated Glomerular Filt Rate 29 ml/min (>60); GFR (African American) 36 ML/MIN (>60); Globulin 3.5 g/dL (1.3-3.2); Phosphorous 2.5 mg/dl (2.5-4.5); Total Protein,Serum 8.4 g/dl (6.3-8.2)
[2024-11-30 02:28] LABS: Calcium 10.4 mg/dl (8.4-10.2); Glucose 177 mg/dl (74-100); Magnesium 1.7 mg/dl (1.6-2.3)
--- NOTE | 2024-11-30 02:30 | PC.NURSE ---
PT noted to have 500cc of emesis.
[2024-11-30 02:39] LABS: Troponin I 0.05 ng/ml (0.00-0.034)
[2024-11-30 02:51] LABS: Hematocrit 43.3 % (37.0-47.0); Hemoglobin 14.3 g/dL (12.2-16.2); Immature Granulocytes % 0.3 %; Mean Corpuscular HGB Conc 33.0 g/dL (31.8-35.4); Mean Corpuscular Hemoglobin 29.9 pg (27.0-31.2); Mean Corpuscular Volume 90.6 fl (81-99); Nucleated Red Blood Cells % 0 %; Platelet Count 505 K/mm3 (142-424); Red Blood Count 4.78 M/mm3 (4.20-5.40); Red Cell Distribution Width-SD 49.8 fL; White Blood Count 11.5 K/mm3 (4.8-10.8)
[2024-11-30] MEDS: SODIUM CHLORIDE 0.9% 10ML SYR (RAD ONLY) 10 ML IV (02:53)
[2024-11-30] MEDS: IOPAMIDOL-370 (76%);100ML BOTTLE 75 ML IV (02:53)
[2024-11-30] MEDS: HYDRALAZINE 20MG/ML VIAL 10 MG IV (03:07)
[2024-11-30 03:09] LABS: Anion Gap 14.3 mEq/L (5-15); Carbon Dioxide 26 mmol/L (22.0-30.0)
--- NOTE | 2024-11-30 03:57 | PC.NURSE ---
Pt arrived to unit @0350 via stretcher
--- NOTE | 2024-11-30 04:00 | P.HP_ITS ---
History of Present Illness *Admission Date: 11/30/24 *Reason for visit:: Nausea and vomiting hypertension tachycardia abdominal pain diarrhea *History of present illness: This 74-year-old female with a very complicated gastroenterology history. Has come in tonight for left lower quadrant pain increase output from her ileostomy increased hypertension and tachycardia. Patient had been seen in the ER yesterday. But has returned tonight since not doing any better and blood pressure remains elevated. I spoke with the ER provider we question whether this is a simple GI virus that is just now showing its full potential. Or related to her very long significant history. For this reason with her blood pressure running systolic 200 heart rate staying in the 1 teens I am going to place the patient in the hospital on the stepdown unit. Plans at this time is simply to slowly replace IV fluids use Cardizem drip as needed to decrease heart rate and blood pressure. Then to continue to monitor kidney function and electrolyte balances. Patient's past medical history is very complicated approximately 2022 patient Bal just stopped working for no reason. Patient ended up with an ileostomy which they then tried to reverse at but patient's been approximately 5 months in the hospital that year. Ileostomy could not be reversed and she presently still has it . Also noted interesting in her history she has had both shoulders both hips and 1 knee joint replaced. And she is actually going to have the left shoulder joint repaired and modified due to bone not doing well and not able to hold the shoulder attached appliance in place. Patient's history does not show any type of significant autoimmune disorder.. Also noting that the patient's renal function has decreased at this time. Hoping that is just related to potential GI virus with dehydration. Consult for gastroenterology has been placed as the provider has seen the patient in the past. Noting last note stating that she follows up with him approximately every 6 months but is followed by a provider at also. Patient noted that the original symptoms began almost a month ago she had been placed on an antifungal for toenail fungus. She has stopped that but it the symptoms have continued to worsen [facility] Disclaimer: The information contained in this section may have been updated after the patient was seen, as this information can be updated by other users. Medical History Hypertension Paroxysmal atrial fibrillation Aftercare following bilateral knee joint replacement surgery C. difficile diarrhea Colostomy in place Perforated sigmoid colon Elevated liver enzymes Ileus Abnormal electrocardiogram [ECG] [EKG] Abdominal pain TIP (acute kidney injury) Hypothyroidism IBS (irritable bowel syndrome) HLD (hyperlipidemia) HTN (hypertension), benign Hypokalemia Hypokalemia due to loss of potassium Surgical History H/O ileostomy History of total right hip replacement History of arthroscopy of left shoulder Family History Other Anemia Asthma Cancer Hyperlipidemia Social History Smoking Status: Never smoker second hand exposure: No alcohol intake: never current occupational status: retired Travel in the last 8 weeks?: None household members: spouse housing: house current occupational exposures/hazards: No caffeine: No Have you lived/traveled outside US in past 30 days?: No Contact w/someone who lives/traveled outside US past 30 days?: No Exposure to someone with infectious disease in past 14 days?: No Do you have a fever (greater than 100.4 F or 38 C)?: No Have you tested positive for COVID-19?: No Exposed to someone with COVID-19 in past 14 days?: No Do you have a sore throat?: No Do you have a cough?: No Do you have any weakness?: No Do you have any diarrhea?: No Are you experiencing any unusual bleeding?: No Do you have any muscle aches/pain?: No Do you have any abdominal pain?: No Are you experiencing loss of taste or smell?: No Other Medical History Have you received the Flu Vaccine for this season: No Have you received the Pneumonia Vaccine: Yes Review of Systems Review of Systems Review of systems:: pertinent systems reviewed and negative unless documented below Constitutional Constitutional: Reports as per HPI and Reports lethargy Comments: Patient is awake alert oriented, able to speak clearly and understands all questions. Eyes Eyes: Reports as per HPI ENT Ears, Nose, Mouth, and Throat: Reports as per HPI *Cardiovascular Cardiovascular: Reports as per HPI and Reports rapid heart rate *Respiratory Respiratory: Reports as per HPI *Gastrointestinal Gastrointestinal: Reports as per HPI, Reports abdominal pain and Reports change in stool character *Genitourinary Genitourinary: Reports as per HPI *Musculoskeletal Musculoskeletal: Reports as per HPI and Reports arthralgias Comments: History of multiple joint replacement surgery Integumentary/Breasts Skin/Breast: Reports as per HPI Comments: Patient denies any rashes skin wounds or sores. *Neurologic Neurologic: Reports as per HPI Comments: Patient denies any changes in her neurologic status no weakness to any specific side or headache Psychiatric Psychiatric: Reports as per HPI Endocrine Endocrine: Reports as per HPI Hematologic/Lymphatic Hematologic/Lymphatic: Reports as per HPI Comments: Patient denies any bruising Allergic/Immunologic Allergic/Immunologic: Reports as per HPI Meds Home Medications and Allergies Home Medications ?Medication ?Instructions ?Recorded ?Confirmed ?Type cholecalciferol (vitamin D3) 62.5 62.5 mcg PO DAILY 90 days #90 caps 04/10/23 10/07/24 Rx mcg (2,500 unit) capsule promethazine 12.5 mg tablet 12.5 mg PO TID 10/11/23 History amlodipine 5 mg tablet 5 mg PO HS hypertension #90 tabs 12/10/23 10/07/24 Rx mometasone-formoterol HFA 200 2 puff inhalation BID As thma #13 12/31/23 10/07/24 Rx mcg-5 mcg/actuation aerosol grams inhaler (Dulera) fluticasone 100 mcg-salmeterol 50 1 inh inhalation BID #60 ea 01/08/24 10/07/24 Rx mcg/dose blistr powdr for inhalation (Advair Diskus) duloxetine 60 mg capsule,delayed See Rx Instructions . Route 01/18/24 10/07/24 Rx release .COMPLEX #180 caps estradiol 0.01% (0.1 mg/gram) 1 appful vaginal DAILY P RN leakage 02/14/24 10/07/24 Rx vaginal cream #42.5 grams ferrous sulfate 325 mg (65 mg See Rx Instructions .Rou te 03/03/24 10/07/24 Rx iron) tablet (FeroSul) .COMPLEX #30 tabs amitriptyline 50 mg tablet 50 mg PO HS #30 tabs 10/07/24 Rx clonidine HCl 0.1 mg tablet 0.1 mg PO PRN 03/04/2411/24 History aripiprazole 2 mg tablet 2 mg PO DAILY 05/09/2410/07 History ondansetron 4 mg disintegrating 4 mg PO PRN 05/09/24 0 10/07/24 History tablet dicyclomine 10 mg capsule 10 mg PO TID PRN abdominal p ain 06/26/24 10/07/24 Rx #90 caps rifaximin 550 mg tablet (Xifaxan) 550 mg PO TID #42 ta bs 06/26/24 10/07/24 Rx ergocalciferol (vitamin D2) 1,250 1,250 mcg PO WEEKLY #4 caps 07/07/24 10/07/24 Rx mcg (50,000 unit) capsule benzonatate 100 mg capsule 100 mg PO TID PRN cough #30 caps 08/27/24 10/07/24 Rx sulfamethoxazole 400 See Rx Instructions .Route 0 09/10/24 10/07/24 Rx mg-trimethoprim 80 mg tablet .COMPLEX #30 tabs acyclovir 400 mg tablet See Rx Instructions .Route 0 09/25/24 10/07/24 Rx .COMPLEX #60 tabs losartan 50 mg tablet See Rx Instructions .Route 0 09/25/24 10/07/24 Rx .COMPLEX #135 tabs ciclopirox 0.77 % topical gel 1 applic topical ONCE to enail 10/07/24 10/07/24 Rx fungus 90 days #100 grams levothyroxine 25 mcg tablet See Rx Instructions .Route 10/10/24 Rx .COMPLEX #90 tabs atorvastatin 40 mg tablet 40 mg PO DAILY #90 tabs 09/30 10/24 Rx terbinafine HCl 250 mg tablet 250 mg PO DAILY fungus 9 0 days #90 10/16/24 Rx tabs furosemide 40 mg tablet See Rx Instructions .Route 0 11/21/24 Rx .COMPLEX #30 tabs tizanidine 4 mg tablet See Rx Instructions .Route 0 11/21/24 Rx .COMPLEX #90 ea diphenoxylate-atropine 2.5 1 tab PO TID 90 days #270 t abs 11/26/24 Rx mg-0.025 mg tablet hydromorphone 4 mg tablet 4 mg PO Q4-6H PRN pain #60 t abs 11/26/24 Rx oxycodone 10 mg tablet 10 mg PO Q4H PRN pain #90 ta bs 11/26/24 Rx New Prescriptions to Start Prescriptions: Allergies Allergy/AdvReac Type Severity Reaction Status Date / Time ciprofloxacin (From Cipro) Allergy Intermediate Muscle Pain Verified 10/07/24 10:08 levofloxacin (From Levaquin) AdvReac Verified 10/07/24 10:08 Exam Data for Last 24 hours Vital signs and Labs for Last 24 Hours: Temp Pulse Resp BP Pulse Ox O2 Del Method 97.6 F 119 H 18 200/93 H 97 Room Air 11/30/24 03:52 11/30/24 03:52 11/30/24 03:52 11/30/24 03:52 11/30/24 01:39 11/30/24 03:52 Laboratory Results - last 24 hr 11/30/24 02:05: WBC 11.5 H, RBC 4.78, Hgb 14.3, Hct 43.3, MCV 90.6, MCH 29.9, MCHC 33.0, RDW 14.9, Plt Count 505 H, MPV 9.4, Neut % (Auto) 77.0, Lymph % (Auto) 14.4, Cuming % (Auto) 6.0, Eos % (Auto) 1.8, Baso % (Auto) 0.5, Neut # (Auto) 8.9 H, Lymph # (Auto) 1.7, Cuming # (Auto) 0.7, Eos # (Auto) 0.2, Baso # (Auto) 0.1, Sodium 137, Potassium 4.3, Chloride 101, Carbon Dioxide 26, Anion Gap 14.3, BUN 32 H D, Creatinine 1.70 H D, Estimated Creat Clear 34, Estimated GFR 29 L, Est GFR ( Amer) 36 L D, Glucose 177 H, Calcium 10.4 H, Phosphorus 2.5, Magnesium 1.7, Total Bilirubin 0.7, AST 31, ALT 22, Alkaline Phosphatase 145 H, Troponin I 0.05 H, Total Protein 8.4 H, Albumin 4.9, Globulin 3.5 H, Albumin/Globulin Ratio 1.4, Lipase 73 11/30/24 02:15: VBG pH 7.40, VBG pCO2 41.4, VBG pO2 55.0 H, VBG HCO3 25.0, VBG Total CO2 26.3, VBG O2 Saturation 89.5 H, VBG Base Excess 0.2, VBG Lactic Acid 2.3 H I & O for Last 24 hours: Intake & Output 11/27/24 11/28/24 11/29/24 11/30/24 05:59 05:59 05:59 05:59 Weight 160 lb Radiology Reports for the Last 24 Hours: Liver: Stable cyst. No mass. Gallbladder and biliary ducts: Unremarkable. No calcified stones. No ductal dilation. Pancreas: Unremarkable. Spleen: Unremarkable. Adrenal glands: Unremarkable. No mass. Kidneys and ureters: No nephroureterolithiasis or hydroureter. Stomach and bowel: Stable nonobstructive right lower quadrant mild parastomal hernia. Nonobstructive fluid-filled bowel loops.. Chronic postoperative changes of colon. Mild colonic ileus. Appendix: Not visualized. Intraperitoneal space: Unremarkable. No free air. No significant fluid collection. Vasculature: Ostial atherosclerotic calcification of celiac and superior mesenteric arteries. Lymph nodes: Unremarkable. No enlarged lymph nodes. Urinary bladder: Obscured by hip hardware susceptibility artifacts. Reproductive: Unremarkable as visualized. Bones/joints: Bilateral hip prosthesis. No acute findings. Soft tissues: Unremarkable. IMPRESSION: 1. Nonobstructive fluid-filled bowel loops. Correlate for low-grade enterocolitis symptoms. 2. Similar nonobstructive parastomal hernia. Constitutional Constitutional: mild distress, average body habitus and cooperative Comments: Patient is very pleasant answers questions well *Routine HEENT Exam Head: Present atraumatic Eye: Present EOMI and PERRL ENT: Present mucous membranes moist and nares patent *Routine Neck Exam Neck: Present supple and full ROM *Routine Respiratory Exam Respiratory: Present CTA bilaterally, normal respiratory effort, able to speak in complete sentences and symmetric chest movement *Routine Cardiovascular Exam Cardiovascular: Present RRR, Normal S1, Normal S2 and tachycardia Comments: Booming heart sounds noting that the heart is working quite hard *Routine Abdominal Exam Abdominal: Present soft, tenderness (Left lower quadrant pain increased with any palpation), rebound and ostomy Comments: Ileostomy in place *Routine Rectal Exam Rectal:: deferred *Routine Genitalia Exam Genitalia:: deferred *Routine Extremities Exam Extremities: Present pulses intact and normal capillary refill Comments: All limbs move well all skin is pink brisk capillary refill to all distal extremities *Routine Skin Exam Skin: Present intact, dry, warm and normal turgor *Routine Neurological Exam Neurological: Present alert, oriented X3, CN II-XII intact, normal reflexes, moving all extremities, normal tone, vision grossly intact, hearing grossly intact and normal speech Routine Psychiatric Exam Psychiatric: Present normal affect, normal thought process, cooperative, good insight and good judgment H&P: Result Impressions 1. Gastroenteritis, with increased stool output but and nausea 2. Hypertension with tachycardia 3. Acute kidney injury question dehydration versus infectious cause Imaging and Cardiology CT scan - abdomen: Status: image reviewed by me Additional comments: Liver: Stable cyst. No mass. Gallbladder and biliary ducts: Unremarkable. No calcified stones. No ductal dilation. Pancreas: Unremarkable. Spleen: Unremarkable. Adrenal glands: Unremarkable. No mass. Kidneys and ureters: No nephroureterolithiasis or hydroureter. Stomach and bowel: Stable nonobstructive right lower quadrant mild parastomal hernia. Nonobstructive fluid-filled bowel loops.. Chronic postoperative changes of colon. Mild colonic ileus. Appendix: Not visualized. Intraperitoneal space: Unremarkable. No free air. No significant fluid collection. Vasculature: Ostial atherosclerotic calcification of celiac and superior mesenteric arteries. Lymph nodes: Unremarkable. No enlarged lymph nodes. Urinary bladder: Obscured by hip hardware susceptibility artifacts. Reproductive: Unremarkable as visualized. Bones/joints: Bilateral hip prosthesis. No acute findings. Soft tissues: Unremarkable. IMPRESSION: 1. Nonobstructive fluid-filled bowel loops. Correlate for low-grade enterocolitis symptoms. 2. Similar nonobstructive parastomal hernia. Assessment and Plan *Assessment and plan (1) Gastroenteritis: Status: Acute Category: Medical Code(s): K52.9 - Noninfective gastroenteritis and colitis, unspecified (2) Vomiting: Status: Acute Qualifiers: Vomiting type: unspecified Nausea presence: with nausea Qualified Code(s): R11.2 - Nausea with vomiting, unspecified Category: Medical Code(s): R11.10 - Vomiting, unspecified (3) Increased ileostomy output: Status: Acute Category: Medical Code(s): R19.8 - Other specified symptoms and signs involving the digestive system and abdomen; Z93.2 - Ileostomy status (4) TIP (acute kidney injury): Status: Acute Category: Medical Code(s): N17.9 - Acute kidney failure, unspecified (5) Hypertensive emergency: Status: Acute Category: Medical Code(s): I16.1 - Hypertensive emergency (6) Tachycardia: Status: Acute Category: Medical Code(s): R00.0 - Tachycardia, unspecified Plan 1. Patient will be admitted to the stepdown unit., This is to start a Cardizem drip if needed for controlling of high blood pressure and heart rate. Patient be kept n.p.o. tonight try to advance to clear liquids in the morning. IV fluids will remain at 150 cc an hour to rehydrate the patient and see if this will improve her kidney function.. A gastroenterology consult has been placed to evaluate change in condition if related to her past history requiring the ileostomy versus simple virus causing nausea and vomiting 2. Patient has chronic pain with a significant joint disorders. Pain control has been added and antinausea medications. Labs will be maintained to monitor kidney function and electrolyte balances.
[2024-11-30] MEDS: MORPHINE 2MG/ML SYRINGE 2 MG IV ×4 (04:56→09:13)
[2024-11-30] MEDS: LACTATED RINGERS 1000ML 1,000 ML 150 ML IV (05:17)
[2024-11-30 06:19] LABS: Reflex Lactic Add Lactic Reflex
[2024-11-30 06:37] LABS: VBG HCO3 23.8 mmol/L (23-30); VBG PCO2 30.6 mmol/L (35-51); VBG PH 7.50 mmol/L (7.31-7.41); VBG PO2 62.6 mmol/L (28-40)
[2024-11-30 06:38] LABS: Lactate Venous 2.6 mmol/L (0.4-2.0)
[2024-11-30 06:49] LABS: Lactic Acid Follow Up (RFLX 1) 2.0 mmol/L (0.7-2.1)
[2024-11-30 07:05] LABS: Troponin I 0.05 ng/ml (0.00-0.034)
[2024-11-30] MEDS: AZITHROMYCIN 500 MG in 0.9 % SODIUM CHLORIDE 250 ML 250 MG IV (09:13)
[2024-11-30 09:14] LABS: Troponin I 0.06 ng/ml (0.00-0.034)
[2024-11-30] MEDS: SODIUM CHLORIDE 0.9% 10ML VIAL 8 ML IV (09:14)
[2024-11-30] MEDS: FAMOTIDINE 20MG/2ML VIAL 20 MG IV (09:14)
--- NOTE | 2024-11-30 10:10 | PC.NURSE ---
Report called to Anya @ this time
[2024-11-30] MEDS: OXYCODONE 5MG IMMEDIATE RELEASE TABLET 10 MG PO ×4 (11:04→23:35)
--- NOTE | 2024-11-30 11:08 | PC.NURSE ---
arrived by w/c from ICU
[2024-11-30] MEDS: AMLODIPINE 10MG TABLET 10 MG PO (11:17)
[2024-11-30] MEDS: LACTATED RINGERS 1000ML 1,000 ML 100 ML IV ×2 (11:17→21:05)
[2024-11-30] MEDS: LEVOTHYROXINE 25MCG (0.025MG) TAB 25 MCG PO (11:17)
--- NOTE | 2024-11-30 11:21 | HMH.PHAINT1 ---
Pharmacy Intervention Comments: MEDICATION RECONCILIATION COMPLETED ON PATIENT USING EXTERNAL FILL HISTORY FROM PHARMACY, LSIT FROM PCP, AND BHARGAV REPORT. -CELESTINE VILLEGASD
[2024-11-30] MEDS: HYDROMORPHONE HCL 2 MG TABLET 4 MG PO ×3 (13:06→21:05)
--- NOTE | 2024-11-30 16:09 | PC.NURSE ---
pt transferred from ICU this morning. pt has been treated with PRN pain medication frequently per may. pt complains of R sided sharp pain. pt independently has cares for ostomy- burping and emptying. pt able to ambulate with standby assistance. LR infusing @ 100ml/hr. no needs at this time. call light within reach.
--- NOTE | 2024-11-30 16:56 | EXP.EVENT.NO ---
Farrah Atkinson is a 74-year-old female who presented with abdominal pain, nausea/vomiting, and increased ileostomy output and was admitted for EPEC gastroenteritis, TIP. #Sepsis #EPEC enterocolitis #Abdominal pain #History of ileostomy ? Presented with increased ileostomy output, nausea/vomiting and abdominal pain improving. ? Patient has a history of ileostomy in the setting of severe ileus, has reportedly been taking Dilaudid, hydrocodone since then for abdominal pain. ? CT abdomen/pelvis suggestive of enterocolitis with nonobstructive fluid-filled bowel loops. ? Stool PCR positive for EPEC. WBC improved from to 13.8 to 11.5, HR currently 100. ? Started azithromycin 250 mg daily given severity of symptoms. Allergic to fluoroquinolones. ? Patient does complain of RUQ pain, but CT abdomen does not show evidence of cholelithiasis/cholecystitis, LFTs and lipase normal. Low suspicion for cholecystitis, pancreatitis. ? Patient is tolerating p.o. intake, advanced diet to low residue diet. ? Follow-up morning CBC, CMP. #TIP ? Initial creatinine 1.7, baseline 0.80. Likely prerenal depletion in the setting of nausea/vomiting/diarrhea. ? Discontinued IV fluids as patient is tolerating p.o. intake. ? Follow-up morning RFT's. #Hypertension ? Admitted with diltiazem drip due to systolics in 200s and sinus tachycardia, discontinued. ? Increased home amlodipine to 10 mg for now, hold home losartan due to TIP. BP currently 136/71. #Hypothyroidism ? Continue home levothyroxine 25 mcg. Follow-up TFTs. #Chronic pain syndrome ? Since ileostomy. Continue home [place], Dilaudid. Managed by PCP. #Anxiety/depression ? Continue home duloxetine 120 mg, amitriptyline 50 mg. ? Patient takes clonidine as needed for anxiety, will hold off as now in the setting of sepsis due to risk of hypotension. Full code DVT prophylaxis: Lovenox 40 mg
[2024-11-30] MEDS: AMITRIPTYLINE 50MG TABLET 50 MG PO (21:03)
[2024-12-01] VITALS: BP 133/53; PULSE 95; RESP 16; TEMP 36.7; O2SAT 96
--- NOTE | 2024-12-01 00:32 | PC.NURSE ---
Addendum entered by Valorie Jose RN 12/01/24 05:58: Patient requesting pain medication for break-through pain at this time. Addendum entered by Valorie Jose RN 12/01/24 04:01: Patient was assessed to be more alert and oriented this morning (oriented to time, situation, self). Patient ambulates independently in room (with standby assistance as necessary) without any difficulties. Ostomy located to right abdominal quadrant for stool elimination (patient empties ostomy independently, with assistance from staff as needed); stoma appearance beefy red. She has complained of sharp, intermittent, bursts of abdominal pain to her right side this shift (near ostomy), of which has been treated per MAR (oral Dilautid once, OxyIR) as appropriately. Low fiber diet initiated, previously tolerated clear liquids without any nausea/vomiting or increasing abdominal pain with intake. Scheduled medications administered per MAR. Contact/enteric precautions for stool EPEC. Addendum entered by Valorie Jose RN 12/01/24 03:36: Patient remains resting in bed with eyes closed, respirations are even and unlabored, and she is in no apparent distress. Addendum entered by Valorie Jose RN 12/01/24 01:59: Patient evaluated at the bedside by Leelee Suazo APRN at this time. Addendum entered by Valorie Jose RN 12/01/24 01:47: At this time, the patient was found walking around in her room looking in drawers. Patient was attempted to be reoriented by nursing staff and sat herself up to chair. Increasing confusion noted. The patient's IV was noticed to be hanging off her table still attached to the line of LR; patient's fluids were stopped. Patient refused further IV sticks, saying you will not be doing that again. Leelee Suazo APRN was notified about this; he stated that this will be fine for now and to make sure that she is safe. Patient remains without IV access due to verbal refusal, LR fluids on hold per MAR. Addendum entered by Valorie Jose RN 12/01/24 00:55: Acute confusion noted to situation and objects as well; patient remains easily reoriented. Upon entering her room to check her sugar, the patient stated that's a phone (directed to the Accu-Chek glucometer) and asked how much is it? I explained to the patient that the device was a glucometer, not a phone; I also explained that it will be used to check her blood sugar due to her acute confusion + little food intake, as requested by Leelee Suazo APRN. The patient then verbalized an understanding and significance of the device, and consented to having her blood sugar checked. Glucose reading was 99. Patient is currently resting upright in bed reading her personal book and magazines. Original Note: After checking on the patient at this time, she was noticed to have a bit of confusion and disorientation to place during conversation; however, she is easily reoriented to place and becomes aware of her confusion episodes after the reorientation. No signs of acute stroke potential (negative for facial drooping, extremity strength equal, no tingling/numbness, no weakness, speech normal baseline, etc.). Respirations are even and unlabored (oxygen saturations > 90%), and the patient is not in any apparent distress. Patient made disoriented statements such as I am waiting for the others to place an order at the diner, I am reading [employer] [place] until the others get here, and I thought we were in [place]. Leelee Suazo APRN was paged to inform him about this. Patient's glucose reading will be checked as well.
[2024-12-01 01:00] LABS: POC Glucose,Bedside 99 gm/dL (70-110)
--- NOTE | 2024-12-01 02:43 | EXP.EVENT.NO ---
Problem nurse notified me that the patient was up wandering in the room appearing confused. exam: I came to see her she definitely was showing signs that she did not have full grasp of what was going on. Question sundowning versus underlying dementia that was just showing itself at that time of the morning. Patient up in the room walking packing her things talking about leaving plan: Have contacted nursing nurse supervisor that if patient was to start to wander we may need one-on-one, patient is not violent at this time. She does not have a grasp of reality nurses aware of this. Also we have shut the double doors in the front of the unit to make sure that the patient would not walk out:
[2024-12-01 04:00] VITALS: BP 171/65; PULSE 100; RESP 16; TEMP 36.6; O2SAT 95; BMI 32.2
[2024-12-01] MEDS: OXYCODONE 5MG IMMEDIATE RELEASE TABLET 10 MG PO ×2 (04:00→09:27)
[2024-12-01] MEDS: LEVOTHYROXINE 25MCG (0.025MG) TAB 25 MCG PO (06:05)
[2024-12-01] MEDS: HYDROMORPHONE HCL 2 MG TABLET 4 MG PO (06:05)
[2024-12-01 07:22] LABS: Hematocrit 35.1 % (37.0-47.0); Hemoglobin 11.2 g/dL (12.2-16.2); Immature Granulocytes % 0.3 %; Mean Corpuscular HGB Conc 31.9 g/dL (31.8-35.4); Mean Corpuscular Hemoglobin 29.8 pg (27.0-31.2); Mean Corpuscular Volume 93.4 fl (81-99); Nucleated Red Blood Cells % 0 %; Platelet Count 341 K/mm3 (142-424); Red Blood Count 3.76 M/mm3 (4.20-5.40); Red Cell Distribution Width-SD 52.6 fL; White Blood Count 7.7 K/mm3 (4.8-10.8)
[2024-12-01 07:23] LABS: Lactate Venous 1.4 mmol/L (0.4-2.0); VBG HCO3 27.6 mmol/L (23-30); VBG PCO2 40.9 mmol/L (35-51); VBG PH 7.45 mmol/L (7.31-7.41); VBG PO2 63.9 mmol/L (28-40)
[2024-12-01 07:36] LABS: Alanine Aminotransferase 17 U/L (12-78); Albumin Level 4.0 g/dl (3.5-5.0); Albumin/Globulin Ratio 1.5 (1.1-1.8); Alkaline Phosphatase 102 U/L (38-126); Anion Gap 9.1 mEq/L (5-15); Aspartate Amino Transferase 29 U/L (14-36); Bilirubin,Total 0.7 mg/dl (0.2-1.3); Blood Urea Nitrogen 17 mg/dl (7-17); Calcium 9.1 mg/dl (8.4-10.2); Carbon Dioxide 28 mmol/L (22.0-30.0); Chloride 102 mmol/L (98-107); Creatinine Clearance Estimated 52 mL/min (50-200); Creatinine,Serum 1.20 mg/dl (0.52-1.04); Estimated Glomerular Filt Rate 44 ml/min (>60); GFR (African American) 53 ML/MIN (>60); Globulin 2.6 g/dL (1.3-3.2); Glucose 108 mg/dl (74-100); Magnesium 1.6 mg/dl (1.6-2.3); Potassium 4.1 mmoL/L (3.5-5.1); Sodium 135 mmol/L (136-145); Total Protein,Serum 6.6 g/dl (6.3-8.2)
[2024-12-01 07:39] VITALS: BP 141/74; PULSE 106; RESP 16; TEMP 36.7; O2SAT 95
[2024-12-01] MEDS: FAMOTIDINE 20MG TABLET 20 MG PO (09:24)
[2024-12-01] MEDS: AZITHROMYCIN 250MG TABLET 250 MG PO ×2 (09:24→10:49)
[2024-12-01] MEDS: AMLODIPINE 10MG TABLET 10 MG PO (09:24)
--- NOTE | 2024-12-01 10:24 | EXP.DC.SUM ---
General Admission date:: 11/30/24 Discharge date: 12/01/24 HPI HPI HPI: This 74-year-old female with a very complicated gastroenterology history. Has come in tonight for left lower quadrant pain increase output from her ileostomy increased hypertension and tachycardia. Patient had been seen in the ER yesterday. But has returned tonight since not doing any better and blood pressure remains elevated. I spoke with the ER provider we question whether this is a simple GI virus that is just now showing its full potential. Or related to her very long significant history. For this reason with her blood pressure running systolic 200 heart rate staying in the 1 teens I am going to place the patient in the hospital on the stepdown unit. Plans at this time is simply to slowly replace IV fluids use Cardizem drip as needed to decrease heart rate and blood pressure. Then to continue to monitor kidney function and electrolyte balances. Patient's past medical history is very complicated approximately 2022 patient Bal just stopped working for no reason. Patient ended up with an ileostomy which they then tried to reverse at but patient's been approximately 5 months in the hospital that year. Ileostomy could not be reversed and she presently still has it . Also noted interesting in her history she has had both shoulders both hips and 1 knee joint replaced. And she is actually going to have the left shoulder joint repaired and modified due to bone not doing well and not able to hold the shoulder attached appliance in place. Patient's history does not show any type of significant autoimmune disorder.. Also noting that the patient's renal function has decreased at this time. Hoping that is just related to potential GI virus with dehydration. Consult for gastroenterology has been placed as the provider has seen the patient in the past. Noting last note stating that she follows up with him approximately every 6 months but is followed by a provider at also. Patient noted that the original symptoms began almost a month ago she had been placed on an antifungal for toenail fungus. She has stopped that but it the symptoms have continued to worsen Hospital Course Hospital Course Hospital Course: 74-year-old patient who was admitted with hypertension and diarrhea. Was found to have acute kidney injury. Diarrhea panel positive for enteropathogenic E. coli. Blood pressure responded to resuming her home blood pressure meds. Was initially on Cardizem drip but this was discontinued shortly after admission as her blood pressure showed improvement. Responded well to IV fluid resuscitation with improvement in her kidney function. In regard to her E. Parra enteritis, initiated on azithromycin. Plan to continue 4 days total of 500 mg daily. Showing improvement by morning of discharge. Tolerating p.o. intake. Kidney function not quite back to baseline of 0.8 but improved from 1.7-1.2 with her creatinine. BUN normal at 17. Electrolytes normal with potassium 4.1. Magnesium improving at 1.6. White count normal at 7.7. Hemodynamically stable. Alert and oriented x 4 morning of discharge. Back to baseline mentation. Recommend holding blood pressure meds per med rec pending improvement in kidney function. Recommend repeat electrolyte and kidney monitoring in 2 to 3 days. Follow-up with PCP in 1 week. States she will reach out to Dr. Kip Yang in the morning to schedule this appointment. Will discharge home for further management as an outpatient given her significant improvement. Total time spent on discharge 32 minutes in counseling, documentation, chart review, and direct care with patient. Exam Data for Last 24 hours Vital signs and Labs for Last 24 Hours: Temp Pulse Resp BP Pulse Ox O2 Del Method 98.1 F 106 H 16 141/74 H 95 Room Air 12/01/24 07:39 12/01/24 07:39 12/01/24 07:39 12/01/24 07:39 12/01/24 07:39 12/01/24 09:02 Laboratory Results - last 24 hr 12/01/24 00:53: POC Glucose 99 12/01/24 07:11: WBC 7.7 D, RBC 3.76 L, Hgb 11.2 L, Hct 35.1 L, MCV 93.4, MCH 29.8, MCHC 31.9, RDW 15.4, Plt Count 341 D, MPV 8.9, Neut % (Auto) 49.1, Lymph % (Auto) 30.9, [place] % (Auto) 10.3 H, Eos % (Auto) 8.8, Baso % (Auto) 0.6, Neut # (Auto) 3.8, Lymph # (Auto) 2.4, [place] # (Auto) 0.8, Eos # (Auto) 0.7 H, Baso # (Auto) 0.1, VBG pH 7.45 H, VBG pCO2 40.9, VBG pO2 63.9 H, VBG HCO3 27.6, VBG Total CO2 28.9 H, VBG O2 Saturation 93.9 H, VBG Base Excess 3.6 H, VBG Lactic Acid 1.4, Sodium 135 L, Potassium 4.1, Chloride 102, Carbon Dioxide 28, Anion Gap 9.1, BUN 17 D, Creatinine 1.20 H D, Estimated Creat Clear 52, Estimated GFR 44 L, Est GFR ( Amer) 53 L D, Glucose 108 H, Lactate 1.0, Calcium 9.1, Magnesium 1.6, Total Bilirubin 0.7, AST 29, ALT 17, Alkaline Phosphatase 102, Total Protein 6.6, Albumin 4.0 D, Globulin 2.6, Albumin/Globulin Ratio 1.5 I & O for Last 24 hours: Intake & Output 11/28/24 11/29/24 11/30/24 12/01/24 23:59 23:59 23:59 23:59 Intake Total 3635.333 / 3812.333 1005 / 1005 Output Total 640 / 640 0 / 0 Balance 2995.333 / 3172.333 1005 / 1005 Weight 74.9 kg 79.424 kg Constitutional Constitutional: no acute distress, average body habitus and chronically ill appearing *Routine HEENT Exam Head: Present normocephalic Eye: Present EOMI and PERRL ENT: Present mucous membranes moist *Routine Neck Exam Neck: Present supple; Absent lymphadenopathy *Routine Respiratory Exam Respiratory: Present CTA bilaterally *Routine Cardiovascular Exam Cardiovascular: Present RRR *Routine Abdominal Exam Abdominal: Present soft, normoactive bowel sounds and tenderness (non focal); Absent distended Comments: healthy stoma in RLQ *Routine Rectal Exam Patient deferred: visual exam *Routine Exam Patient deferred: external exam *Routine Extremities Exam Extremities: Present edema (trace BLE); Absent cyanosis or clubbing *Routine Skin Exam Skin: Present warm; Absent rash *Routine Neurological Exam Neurological: Present alert, oriented X3 and moving all extremities; Absent altered mental status Results Data Completed and Pending Labs on day of discharge: Labs from last 24 hours 12/01/24 12/01/24 07:11 00:53 WBC 7.7 D RBC 3.76 L Hgb 11.2 L Hct 35.1 L MCV 93.4 MCH 29.8 MCHC 31.9 RDW 15.4 Plt Count 341 D MPV 8.9 Neut % (Auto) 49.1 Lymph % (Auto) 30.9 [place] % (Auto) 10.3 H Eos % (Auto) 8.8 Baso % (Auto) 0.6 Neut # (Auto) 3.8 Lymph # (Auto) 2.4 [place] # (Auto) 0.8 Eos # (Auto) 0.7 H Baso # (Auto) 0.1 VBG pH 7.45 H VBG pCO2 40.9 VBG pO2 63.9 H VBG HCO3 27.6 VBG Total CO2 28.9 H VBG O2 Saturation 93.9 H VBG Base Excess 3.6 H VBG Lactic Acid 1.4 Sodium 135 L Potassium 4.1 Chloride 102 Carbon Dioxide 28 Anion Gap 9.1 BUN 17 D Creatinine 1.20 H D Estimated Creat Clear 52 Estimated GFR 44 L Est GFR ( Amer) 53 L D Glucose 108 H POC Glucose 99 Lactate 1.0 Calcium 9.1 Magnesium 1.6 Total Bilirubin 0.7 AST 29 ALT 17 Alkaline Phosphatase 102 Total Protein 6.6 Albumin 4.0 D Globulin 2.6 Albumin/Globulin Ratio 1.5 DS: Diagnosis Discharge Diagnosis (1) Enteropathogenic Escherichia coli infection: Status: Acute Code(s): A04.0 - Enteropathogenic Escherichia coli infection Problem details: present on admission (2) Gastroenteritis: Status: Acute Code(s): K52.9 - Noninfective gastroenteritis and colitis, unspecified (3) Vomiting: Status: Acute Code(s): R11.10 - Vomiting, unspecified Qualifiers: Nausea presence: with nausea Vomiting type: unspecified Qualified Code(s): R11.2 - Nausea with vomiting, unspecified (4) Increased ileostomy output: Status: Acute Code(s): R19.8 - Other specified symptoms and signs involving the digestive system and abdomen; Z93.2 - Ileostomy status (5) TIP (acute kidney injury): Status: Acute Code(s): N17.9 - Acute kidney failure, unspecified (6) Hypertensive emergency: Status: Acute Code(s): I16.1 - Hypertensive emergency (7) Tachycardia: Status: Acute Code(s): R00.0 - Tachycardia, unspecified (8) Hypothyroidism: Status: Chronic Code(s): E03.9 - Hypothyroidism, unspecified Qualifiers: Hypothyroidism type: acquired Qualified Code(s): E03.9 - Hypothyroidism, unspecified (9) Hypomagnesemia: Status: Acute Code(s): E83.42 - Hypomagnesemia Meds Home Medications and Allergies Home Medications ?Medication ?Instructions ?Recorded ?Confirmed ?Type amitriptyline 50 mg tablet 50 mg PO HS #30 tabs 03/04/24 11/30/24 Rx clonidine HCl 0.1 mg tablet 0.1 mg PO NEEDED PRN Anxiety 03/04/24 11/30/24 History aripiprazole 2 mg tablet 2 mg PO DAILY 05/09/24 11/30/24 History ergocalciferol (vitamin D2) 1,250 1,250 mcg PO WEEKLY #4 caps 07/07/24 11/30/24 Rx mcg (50,000 unit) capsule atorvastatin 40 mg tablet 40 mg PO DAILY #90 tabs 10/16/24 11/30/24 Rx diphenoxylate-atropine 2.5 1 tab PO TID 90 days #270 tabs 11/26/24 11/30/24 Rx mg-0.025 mg tablet amlodipine 5 mg tablet 5 mg PO HS 11/30/24 11/30/24 History ciclopirox 0.77 % topical gel 1 applic topical DAILY 11/30/24 11/30/24 History dicyclomine 10 mg capsule 10 mg PO TIDP PRN abdominal pain 11/30/24 11/30/24 History duloxetine 60 mg capsule,delayed 120 mg PO DAILY 11/30/24 11/30/24 History release furosemide 40 mg tablet 40 mg PO DAILYP PRN Edema 11/30/24 11/30/24 History Held on 12/01/24. Instructions: pending follow-up with PCP levothyroxine 25 mcg tablet 25 mcg PO DAILY 11/30/24 11/30/24 History losartan 50 mg tablet 75 mg PO DAILY 11/30/24 11/30/24 History Held on 12/01/24. Instructions: Resume on 12/03/24. oxycodone 10 mg tablet 10 mg PO Q4HP PRN Moderate Pain 11/30/24 11/30/24 History (Scale Score 5-6) terbinafine HCl 250 mg tablet 250 mg PO DAILY 11/30/24 11/30/24 History tizanidine 4 mg tablet 4 mg PO TIDP PRN Muscle Spasm 11/30/24 11/30/24 History azithromycin 500 mg tablet 500 mg PO DAILY 2 days #2 tabs 12/01/24 Rx New Prescriptions to Start Prescriptions: azithromycin Zoran Francis Allergies Allergy/AdvReac Type Severity Reaction Status Date / Time ciprofloxacin (From Cipro) Allergy Intermediate Muscle Pain Verified 10/07/24 10:08 levofloxacin (From Levaquin) AdvReac Verified 10/07/24 10:08 Discharge Plan Disposition Patient Disposition: Home, Self-Care Condition: Fair Follow up Plan Follow up with: Connor Gomez MD [Staff Physician, Family Practice] - Enter time for follow up Referral Note: Please call for follow up. Prescriptions/Medication Reconciliation: New azithromycin 500 mg tablet 500 mg PO DAILY 2 Days Qty: 2 0RF Continued clonidine HCl 0.1 mg tablet 0.1 mg PO NEEDED PRN (Reason: Anxiety) amitriptyline 50 mg tablet 50 mg PO HS Qty: 30 12RF aripiprazole 2 mg tablet 2 mg PO DAILY ergocalciferol (vitamin D2) 1,250 mcg (50,000 unit) capsule 1,250 mcg PO WEEKLY Qty: 4 1RF atorvastatin 40 mg tablet 40 mg PO DAILY Qty: 90 3RF diphenoxylate-atropine 2.5-0.025 mg tablet 1 tab PO TID 90 Days Qty: 270 3RF tizanidine 4 mg tablet 4 mg PO TIDP PRN (Reason: Muscle Spasm) amlodipine 5 mg tablet 5 mg PO HS levothyroxine 25 mcg tablet 25 mcg PO DAILY terbinafine HCl 250 mg tablet 250 mg PO DAILY dicyclomine 10 mg capsule 10 mg PO TIDP PRN (Reason: abdominal pain) ciclopirox 0.77 % gel 1 applic topical DAILY Rx Instructions: Apply daily to affected toenail. Smooth with emery board weekly. duloxetine 60 mg capsule,delayed release(DR/EC) 120 mg PO DAILY oxycodone 10 mg tablet 10 mg PO Q4HP MDD No> 6/day PRN (Reason: Moderate Pain (Scale Score 5-6)) Held losartan 50 mg tablet 75 mg PO DAILY Hold Instructions: Resume on 12/03/24. furosemide 40 mg tablet 40 mg PO DAILYP PRN (Reason: Edema) Hold Instructions: pending follow-up with PCP Discontinued hydromorphone 4 mg tablet 4 mg PO Q4HP PRN (Reason: Severe Pain (Scale Score 7-10)) Other Ambulatory Orders: Basic Metabolic Panel (Routine) Timeframe: 2 Days Facility: [facility] - Location: Laboratory Ordered By: Zoran Francis Magnesium (Routine) Timeframe: 2 Days Facility: [facility] - Location: Laboratory Ordered By: Zoran Francis Problem Reconciliation Problems Reviewed?: Yes Patient Discharge Instructions ACTIVITY: Continue current activity DIET: continue same diet Patient Instructions: Acute Kidney Injury, Nausea and Vomiting-Adult, Stop Light Infection Print Language: [place] Korean Providers Primary Care Provider: Provider,Referral Admit Provider: Timothy Weiss Attending Provider: Timothy Weiss
[2024-12-01 12:00] VITALS: BP 138/69; PULSE 84; RESP 16; TEMP 36.7; O2SAT 98
--- NOTE | 2024-12-03 10:39 | SW/DCPLANNER ---
Phoned patient x2. Left patient a message with name and a call back number. Steffany Spence
== END 2024-12-01 12:32 | disposition home or self-care (01) ==
LOC: ER 01:37 → ICU 03:22 → 2ND 09:49
PROVIDERS: Nurse Practitioner Family; Admitting Provider Student in an Organized Health Care Education/Training Program; Emergency Provider Emergency Medicine; Visit Provider Student in an Organized Health Care Education/Training Program
DX: N17.9 Acute kidney failure, unspecified (principal); A04.0 Enteropathogenic Escherichia coli infection; K52.9 Noninfective gastroenteritis and colitis, unspecified; I16.1 Hypertensive emergency; E83.42 Hypomagnesemia; E03.9 Hypothyroidism, unspecified; I21.A1 Myocardial infarction type 2; I12.9 Hypertensive chronic kidney disease with stage 1 through stage 4 chronic kidney disease, or unspecified chronic kidney disease; A41.9 Sepsis, unspecified organism; N18.9 Chronic kidney disease, unspecified; E78.5 Hyperlipidemia, unspecified; G89.29 Other chronic pain; F41.9 Anxiety disorder, unspecified; E66.9 Obesity, unspecified; F32.A Depression, unspecified; I48.91 Unspecified atrial fibrillation; K43.5 Parastomal hernia without obstruction or gangrene; Z68.32 Body mass index [BMI] 32.0-32.9, adult; Z93.3 Colostomy status; Z93.2 Ileostomy status; Z96.653 Presence of artificial knee joint, bilateral; Z87.891 Personal history of nicotine dependence; Z96.643 Presence of artificial hip joint, bilateral; Z90.49 Acquired absence of other specified parts of digestive tract; Z88.1 Allergy status to other antibiotic agents; Z79.890 Hormone replacement therapy; Z79.899 Other long term (current) drug therapy; Z79.891 Long term (current) use of opiate analgesic
CPT/HCPCS: 36415; 74177; 80053; 82803; 82962; 83605; 83690; 83735; 84100; 84484; 85025; 87507; 93005; 96361; 96365; 96366; 96367; 96372; 96375; 96376; 99284; G0378; J0360; J0456; J1650; J2270; J2405; J7050; J7120; Q9967

== ENCOUNTER 2024-12-05 14:50 | Outpatient (CLI) | payer MEDICARE, OTHER, SELFPAY ==
[2024-12-05 20:13] LABS: Hematocrit 36.4 % (37.0-47.0); Hemoglobin 11.9 g/dL (12.2-16.2); Immature Granulocytes % 0.3 %; Mean Corpuscular HGB Conc 32.7 g/dL (31.8-35.4); Mean Corpuscular Hemoglobin 30.1 pg (27.0-31.2); Mean Corpuscular Volume 92.2 fl (81-99); Nucleated Red Blood Cells % 0 %; Platelet Count 388 K/mm3 (142-424); Red Blood Count 3.95 M/mm3 (4.20-5.40); Red Cell Distribution Width-SD 49.4 fL; White Blood Count 7.8 K/mm3 (4.8-10.8)
[2024-12-05 20:45] LABS: Albumin Level 4.7 g/dl (3.5-5.0); Chloride 105 mmol/L (98-107); Sodium 137 mmol/L (136-145)
[2024-12-05 20:46] LABS: Potassium 3.8 mmoL/L (3.5-5.1)
[2024-12-05 20:48] LABS: Alanine Aminotransferase 62 U/L (12-78); Albumin/Globulin Ratio 1.8 (1.1-1.8); Alkaline Phosphatase 163 U/L (38-126); Anion Gap 16.8 mEq/L (5-15); Aspartate Amino Transferase 73 U/L (14-36); Bilirubin,Total 0.7 mg/dl (0.2-1.3); Blood Urea Nitrogen 28 mg/dl (7-17); Carbon Dioxide 19 mmol/L (22.0-30.0); Creatinine,Serum 1.50 mg/dl (0.52-1.04); Estimated Glomerular Filt Rate 34 ml/min (>60); GFR (African American) 41 ML/MIN (>60); Globulin 2.6 g/dL (1.3-3.2); Total Protein,Serum 7.3 g/dl (6.3-8.2)
[2024-12-05 20:49] LABS: Calcium 9.6 mg/dl (8.4-10.2); Glucose 94 mg/dl (74-100)
--- OUTSIDE RECORDS SUMMARY | 2024-12-08 09:56 | XMS_ITS | Encounter Summary ---
Author Organization [facility] Address [address] [place] [id number] Care Team Providers Care Intake Assessor Name Role Phone GabrielTimothy armenta Primary Care Provider [phone] Reason for Visit * Reason Comments Med Refill Encounter Details Date Type Department Care Team (Late st Contact Info) Description 12/22/2021 Refill [facility] [address] [place] [address] Connor Nunez MD [address] [place] [address] Chronic arthritis associated with viral [...] documented as of this encounter Care Teams Intake Assessor Relationship Specialty Start Date End Date Timothy Granda DO [address] [place] [address] [place]A [place]M [address] PCP - General Internal Medicine 06/12/23 documented as of this encounter
--- OUTSIDE RECORDS SUMMARY | 2024-12-08 09:56 | XMS_ITS | Clinical Summary ---
Author Organization [facility] ([place], [place], [place], [place]) Address [address] [place] [address] Care Team Providers Care Home School Teacher Name Role Phone [facility], Provider Not In The System Primary [...] Date Dereje rded Speak language other than [place] Islander at home Not on file 04/12/2023 Want [...] (2 of 2 - PCV) 02/15/2016 02/14/2015 Falls Risk Screening 04/02/2024 COVID-19 VACCINE (6 - 2024-2 6 season) 2024 02/09/2023, 01/25/2022, 07/18/2021, Additional history exists Influenza Vaccine (#1) 2024 , 01/25/2022, 05/31/2021, Additional history exists Respiratory Syncytial Virus (RSV) Adult or (1 - 1-dose 75+ series) 09/26/2026 Care Teams Home School Teacher Relationship Specialty Start Date End Date [facility], Provider Not In The System, [place] [address] PCP - General 04/16/23
--- OUTSIDE RECORDS SUMMARY | 2024-12-08 09:56 | XMS_ITS | Encounter Summary ---
Author Organization [facility] Address [address], [address] [place] [address] Care Team Providers Care Special Population Paraprofessional Name Role Phone Unavailable Primary Care Provider Unavailabl e Reason for Visit * Reason Onset Date Comments Surgery Scheduling 10/10/2024 Encounter Details Date Type Department Care Team (Late Contact Info) Description 10/10/2024 Telephone [facility] [address] [place], [place] [id number] [place] [address] [place] [address] [address] [place] [address] Surgery Scheduling Social History Tobacco [...] Care Team (Late st Contact Info) Description 12/15/2024 7:30 AM EDT Hospital Encounter [facility] General Surgery [address] [place], [place] [id number] Sharon Paulino MD [address] [place] [address] 12/15/2024 7:30 AM EDT - 12/15/2024 10:55 AM EDT Surgery [facility] General Surgery [address] [place] [address] Sharon Paulino MD [address] [facility] [address] [place] [address] LEFT SHOULDER TOTAL ARTHROPLASTY REVISION TO COURTNEY-ARTHROPLASTY POSSIBLE REVISION TO REVERSE TOTAL SHOULDER REPLACEMENT 12/25/2024 1:30 PM EDT Office Visit [facility], [place] [address] Sharon Paulino MD [address] [facility] [address] [place] [address] post op shoulder Scheduled Procedures Name Priority Associated Diagnoses Date/Ti me SHOULDER TOTAL ARTHROPLASTY REVISION Left shoulder pain 12/15/2024 7:30 AM EDT documented as of this encounter Visit Diagnoses Not on filedocumented in this encounter
--- OUTSIDE RECORDS SUMMARY | 2024-12-08 09:56 | XMS_ITS | Encounter Summary ---
Author Organization [facility] ([place], [place], [place], [place]) Address [address] [place] [address] Care Team Providers Care Xerox Machine Mechanic Name Role Phone [facility], Provider Not In The System Primary Care Provider Unavailable Encounter Details Date Type Department Care Team (Late st Contact Info) Description 04/28/2019 Transcribed Document [facility] Family Medicine [address] [place] [address] ProviderJean-Claude MD [address] [place], [place] [id number] Social History Tobacco Use Types Packs/Day Years Used Date Smoking Tobacco: Never Assessed Comments Unknown Sex and Gender Information Value Date Recorded Sex Assigned at Not on file Legal Sex Female 5:42 PM CDT Gender Identity Not on file Sexual Orientation Not on file documented as of this encounter Miscellaneous Notes * Cerner Conversion Note - Historical ProviderMD - 04/28/2019 8:05 AM SOFTWARE TEST SPECIALIST [facility] Main OR PACU Summary Primary Physician: MADISON OSPINA MD-ORShantel Finalized Date/Time: 04/28/19 09:40:55 Pt. Name: MOISE ATKINSON/Sex: 1950 Female Med Rec #: [id number] Physician: MADISON OSPINA MD-ORT Financial #: [id number] Pt. Type: O Room/Bed: Admit/Disch: 04/28/19 05:30:00 - Institution: [facility] OR PACU Case Times Entry 1 In PACU I 04/28/19 08:38:00 Ready for PACU 04/28/19 09:33:00 Discharge Discharge from PACU 04/28/19 09:33:00 I Last Modified By: Eduarda Patel Rn Patient Care Bedside 04/28/19 09:40:12 [facility] Main OR PACU Case Times Audit 04/28/19 09:40:12 Industrial Engineering Technologist: SADE Modifier: SADE <+> 1 Ready for PACU Discharge <+> 1 Discharge from PACU I Finalized By: Eduarda Patel Rn Patient Care Bedside Document Signatures Signed By: Eduarda Patel Rn Patient Care Bedside 04/28/19 09:40 Electronically signed by May [facility] Conversion Research Methodologist Cerner at 07/23/2022 4:28 PM CDT documented in this encounter Plan of Treatment Not on file documented as of this encounter Visit Diagnoses Not on filedocumented in this encounter Care Teams Xerox Machine Mechanic Relationship Specialty Start Date End Date [facility], Provider Not In The System, [place] [address] PCP - General 04/16/23 documented as of this encounter
--- OUTSIDE RECORDS SUMMARY | 2024-12-08 09:56 | XMS_ITS | Encounter Summary ---
Author Organization [facility] Address [address], [address] [place] [address] Care Team Providers Care Metal Bonding Press Operator Name Role Phone Unavailable Primary Care Provider Unavailabl e Encounter Details Date Type Department Care Team (Latest Contact Info) Description 11/05/2024 Prep for Procedure [facility] Orthopedic and Sports Medicine [address] [place], [place] [id number] Laisha Galvan MA History of total replacement [...] AM EDT Hospital Encounter [facility] General Surgery [address] [place], [place] [id number] Sharon Paulino MD [address] [place] [address] 12/15/2024 7:30 AM EDT - 12/15/2024 10:55 AM EDT Surgery [facility] General Surgery [address] [place] [address] Sharon Paulino MD [address] [place] [address] LEFT SHOULDER TOTAL ARTHROPLASTY REVISION TO COURTNEY-ARTHROPLASTY POSSIBLE REVISION TO REVERSE TOTAL SHOULDER REPLACEMENT 12/25/2024 1:30 PM EDT Office Visit [facility] [place], [place] [address] Sharon Paulino MD [address] [place] [address] post op shoulder Scheduled Procedures Name Priority [...]
--- OUTSIDE RECORDS SUMMARY | 2024-12-08 09:56 | XMS_ITS | Encounter Summary ---
Author Organization Healthcare Address [address] [place] [address] Care Team Providers Care Hedis Specialist Name Role Phone Timothy Granda DO Primary Care Provider [phone] Sadia Campo STONE MILL OPERATOR Unavailable Unavailable Encounter Details Date Type Department Care Team (Late st Contact Info) Description 07/24/2023 Lab Requisition [facility] [address] [place] [address] Miky Coleman MD [address] [facility] [address] [place] [address] Encounter for general adult medical [...] place to sleep or slept in a group home (including now)? Patient refused 07/23/2023 CAGE ASSESSMENT [...] first t mini in the morning (EYE-CREDIT CARD CLERK) to steady your nerves or to get [...] at day 1 07/25/2023 12:01 AM EDT [facility] Swab (Nares and Renata Rectal) 07/23/2023 9:00 AM EDT 07/24/2023 4:19 AM EDT us Miky Coleman MD LAB MICROBIOLOGY - GEN ERAL ORDERABLES Final Result [facility] [address] [place] [address] documented in this encounter Visit Diagnoses Diagnosis [...] documented as of this encounter Care Teams Hedis Specialist Relationship Specialty Start Date End Date Timothy Granda DO [address] [place] [address] PCP - General 05/25/23 Sadia Campo, [place] [address] Eyeglass Inspector Video Library Assistant 08/03/22 06/21/24 documented as of this encounter
--- OUTSIDE RECORDS SUMMARY | 2024-12-08 09:56 | XMS_ITS | Encounter Summary ---
Author Organization [facility] Address [address] [place] [address] Care Team Providers Care Child Care Centre Director Name Role Phone Unavailable Primary Care Provider Unavailabl e Reason for Visit * Reason Onset Date Comments Surgery Scheduling 11/20/2024 LT SHDLR Encounter Details Date Type Department Care Team (Late Contact Info) Description 11/20/2024 Telephone [facility] [address] [facility] [address] [place] [id number] [place] [address] [place] [address] [address] [place] [address] Surgery Scheduling (LT SHDLR) Social [...] Department Care Team (Late Contact Info) Description 12/15/2024 7:30 AM EDT Hospital Encounter [facility] General Surgery [facility] [place] [address] Sharon Paulino MD [address] [facility] [address] [place] [address] 12/15/2024 7:30 AM EDT - 12/15/2024 10:55 AM EDT Surgery [facility] General Surgery [address] [place] [address] Sharon Paulino MD [address] [facility] [address] [place] [address] LEFT SHOULDER TOTAL ARTHROPLASTY REVISION TO COURTNEY-ARTHROPLASTY POSSIBLE REVISION TO REVERSE TOTAL SHOULDER REPLACEMENT 12/25/2024 1:30 PM EDT Office Visit [facility] [place], [place] [address] Sharon Paulino MD [address] [facility] [address] [place] [address] post op shoulder Scheduled Procedures Name Priority Associated Diagnoses Date/Ti me SHOULDER TOTAL ARTHROPLASTY REVISION Left shoulder pain 12/15/2024 7:30 AM EDT documented as of this encounter Visit Diagnoses Not on filedocumented in this encounter
--- OUTSIDE RECORDS SUMMARY | 2024-12-08 09:56 | XMS_ITS | Clinical Summary ---
Author Organization [facility] Address [address] [place] [address] Phone Care Team Providers Care Enforcement Manager Name Role Phone Unavailable Primary Care [...] ANXIETY MAY CAUSE DROWSINESS 180 Tablet 1 5 Active ARIPiprazole (ABILIFY) 2 mg Oral Tablet Take 1 Tablet by mouth daily. 30 Tablet 5 5 Active ARIPiprazole (ABILIFY) 2 mg Oral Tablet TAKE 1 TABLET BY MOUTH ONCE DAILY 30 Tablet 5 11/22/19 25 Discontinu ed(Reorder ) Active Problems No known active problems Medical [...] Insurance MEDICARE [place] PART A AND B [employer]
--- OUTSIDE RECORDS SUMMARY | 2024-12-08 09:56 | XMS_ITS | Encounter Summary ---
Author Organization Healthcare Address [address] [place] [address] Care Team Providers Care Indian Blanket Weaver Name Role Phone Chandra Leahy MD Primary Care Provider [phone] Timothy Granda DO Primary Care Provider [phone] Sadia Campo LAP WELDER Unavailable Unavailable Encounter Details Date Type Department Care Team (Late st Contact Info) Description 08/14/2022 Lab Requisition [facility] [address] [place] [address] Dilip Lloyd MD [address] [address] Encounter for general adult medical [...] drink first t mini in the morning (EYE-URANIUM PROCESSING SUPERVISOR) to steady your nerves or to [...] LAB MICROBIOLOGY - GENERAL ORDERABLES Final Result [facility] [address] [place] [address] documented in this encounter Visit Diagnoses Diagnosis Encounter for general adult medical examination without abnormal findings documented in this encounter Additional Health Concerns Infection Onset Date Last Indicated Resolved Time COVID-19 Rule-Out 07/22/2023 07/22/2023 07/22/2023 12:14 PM EDT C. difficile Rule-Out 07/26/2023 08/01/20232023 1:07 AM EDT Gastrointestinal Rule-Out 08/02/2023 08/01/2023 3:00 AM EDT documented as of this encounter Care Teams Indian Blanket Weaver Relationship Specialty Start Date End Date Chandra Leahy MD [address] [place] [address] PCP - General 08/02/22 05/24/23 Timothy Granda DO [address] [place] [address] PCP - General 05/25/23 Sadia Campo, [place] [address] Mounter Hand Matcher Operator 08/03/22 06/21/24 documented as of this encounter
--- OUTSIDE RECORDS SUMMARY | 2024-12-08 09:56 | XMS_ITS | Encounter Summary ---
Author Organization [employer] ([place], [place], [place], [place]) Address [address] [place] [address] Care Team Providers Care Commercial Sales Representative Name Role Phone [facility], Provider Not In The System Primary Care Provider Unavailable Encounter Details Date Type Department Care Team (Late st Contact Info) Description 04/28/2019 Transcribed Document [facility] [place] Medicine [facility] [place] [address] ProviderJean-Claude MD [address] [place] [id number] Social History Tobacco Use Types Packs/Day Years Used Date Smoking Tobacco: Never Assessed Comments Unknown Sex and Gender Information Value Date Recorded Sex Assigned at Not on file Legal Sex Female 5:42 PM CDT Gender Identity Not on file Sexual Orientation Not on file documented as of this encounter Miscellaneous Notes * Cerner Conversion Note - Historical ProviderMD - 04/28/2019 8:29 AM MARINE ELECTRICIAN APPRENTICE Pain Assessment Entered On: 04/28/2019 9:06 EST [...] on filedocumented in this encounter Care Teams Commercial Sales Representative Relationship Specialty Start Date End Date Leslee, Provider Not In The System, [place] [address] PCP - General 04/16/23 documented as of this encounter
--- OUTSIDE RECORDS SUMMARY | 2024-12-08 09:56 | XMS_ITS | Encounter Summary ---
Author Organization [employer] ([place], [place], [place], [place]) Address [address] [place] [address] Care Team Providers Care Parquet Floor Layer'S Helper Name Role Phone [facility], Provider Not In The System Primary Care Provider Unavailable Encounter Details Date Type Department Care Team (Late st Contact Info) Description 04/28/2019 Transcribed Document [facility] [place] [address] ProviderJean-Claude MD [address] [place], [place] [id number] Social History Tobacco Use Types Packs/Day Years Used Date Smoking Tobacco: Never Assessed Comments Unknown Sex and Gender Information Value Date Recorded Sex Assigned at Not on file Legal Sex Female 5:42 PM CDT Gender Identity Not on file Sexual Orientation Not on file documented as of this encounter Miscellaneous Notes * Cerner Conversion Note - Historical ProviderMD - 04/28/2019 8:05 AM ROD TAPE OPERATOR ADI Main OR IntraOp Summary Primary Physician: MADISON OSPINA MD-ORT Finalized Date/Time: 04/28/19 08:39:15 Pt. Name: FARRAH ATKINSON D.O.B./Sex: 1950 Female Med Rec #: [id number] Physician: MADISON SOPINA MD-ORT Financial #: [id number] Pt. Type: O Room/Bed: Admit/Disch: 04/28/19 05:30:00 - [place] [facility] [place] Attendance Entry 1 Entry 2 Entry 3 Case Attendee MADISON OSPINA MD-ORT WICKER, KAREN KIM, ARIA WATERS RN Role Performed Surgeon/Proceduralist, CONVEX GRINDER OPERATOR/Nurse Sweat Band Sewer Associate Professor Of Church Music, First First Time In 04/28/19 07:39:00 04/28/19 [...] [facility] IntraOp Case Attendance Audit 04/28/19 08:34:51 Hand Wrapper Operator: LONGGA Modifier: LONGGA 1 <+> Time Out 1 <*> Procedure Knee Arthroscopy 2 <+> Time Out 2 <*> Procedure Knee Arthroscopy 3 <+> Time Out 3 <*> Procedure Knee Arthroscopy 4 <+> Time Out 4 <*> Procedure Knee Arthroscopy 5 <+> Time Out 5 <*> Procedure Knee Arthroscopy 04/28/19 08:07:14 Hand Wrapper Operator: LONGGA Modifier: LONGGA <+> 1 Time [...] [facility] IntraOp Case Times Audit 04/28/19 08:34:50 Hand Wrapper Operator: LONGGA Modifier: LONGGA <+> 1 Out Room Time <+> 1 Stop Time 04/28/19 08:31:56 Hand Wrapper Operator: LONGGA Modifier: LONGGA <+> 1 Stop [...] FARRAH MANE CRNA Last Modified By: ARIA EMLCHOR RN 04/28/19 08:32:27 [facility] IntraOp Departure from OR Audit 04/28/19 08:32:27 Hand Wrapper Operator: EMBER Modifier: LONGGA 1 <*> Patient [...] RN 04/28/19 08:15:47 [facility] IntraOp General Case Scuba Dive Training Instructor 1 Case Information OR OR 05 SJE Case Level 1 Room Verified Yes Wound Class I - Clean Specialty SN Orthopedic Anesthesia Type General ASA Class 3 Diagnosis Preop Diagnosis PATELLAR CHONDROMALACIA RIGHT KNEE Postop Same As Preop No Postop Diagnosis DICTATED BY aMry Last Modified By: ARIA MELCHOR RN 04/28/19 08:15:39 [facility] IntraOp General Case Data Audit 04/28/19 08:15:39 Hand Wrapper Operator: EMBER Modifier: LONGGA <+> 1 ASA [...] Entry 1 Medication/Irrigant epinephrine 30mg/30ml vial - [id number] Route of 3ML/3000ML OF NS Administration IRRIGATION [...] TAVAREZ TO LEFT LEG, AMSCO ARTHROSCOPY LEG TAVAERZ FOR RIGHT LEG Positioned By FARRAH MANE, PRAVIN, ARIA MELCHOR RN, MADISON OSPINA MD-ORT Position Verified Positioning Yes Verified by Anesthesia Positioning Yes Verified by Surgeon Last Modified By: ARIA MELCHOR RN 04/28/19 08:17:49 S[facility] IntraOp Patient Positioning Audit 04/28/19 08:17:49 Hand Wrapper Operator: LONGGA Modifier: LONGGA 1 <*> Procedure [...] [facility] IntraOp Surgical Procedures Audit 04/28/19 08:31:50 Hand Wrapper Operator: LONGGA Modifier: LONGGA 1 <*> Procedure Knee Arthroscopy 1 <+> Stop 04/28/19 08:27:35 Hand Wrapper Operator: LONGGA Modifier: LONGGA 1 <*> Procedure Knee Arthroscopy 1 <*> Additional Procedure Description RIGHT KNEE ARTHROSCOPY FOR RETROPATELLAR CHONDROPLASTY AND PARTIAL MENISCECTOMY 04/28/19 08:21:54 Hand Wrapper Operator: LONGGA Modifier: LONGGA 1 <*> Procedure Knee Arthroscopy 1 <*> Additional Procedure Description LEFT KNEE ARTHROSCOPY FOR RETROPATELLAR CHONDROPLASTY AND PARTIAL MENISCECTOMY SJE IntraOp Temp Regulation Devices Entry 1 Temp Regulation Temperature Forced Air Warming Regulation Device device Temperature 4765 Regulation Device Serial/Unit Number Temperature Upper body Regulation Site Temperature AFRRAH MANE, CONVEX GRINDER OPERATOR Regulation Device Applied by Last Modified By: [...] 08:31:38 S[facility] IntraOp Tourniquet Audit 04/28/19 08:31:38 Hand Wrapper Operator: EMBER Modifier: EMBER <+> 1 Stop Time Case Comments <None> Finalized By: ARIA MELCHOR, RN Document Signatures Signed By: ARIA MELCHOR RN 04/28/19 08:39 Electronically signed by May [facility] Conversion Wash Driller Cerner at 07/23/2022 4:21 PM CDT documented in this encounter Plan of Treatment Not on file documented as of this encounter Visit Diagnoses Not on filedocumented in this encounter Care Teams Parquet Floor Layer'S Helper Relationship Specialty Start Date End Date Leslee, Provider Not In The System, [place] [address] PCP - General 04/16/23 documented as of this encounter
--- OUTSIDE RECORDS SUMMARY | 2024-12-08 09:56 | XMS_ITS | Encounter Summary ---
Author Organization [employer] ([place], [place], [place], [place]) Address [address] [place] [address] Care Team Providers Care Imaging Nurse Name Role Phone [facility], Provider Not In The System Primary Care Provider Unavailable Encounter Details Date Type Department Care Team (Late st Contact Info) Description 04/28/2019 Transcribed Document [facility] [place] Family Medicine [address] [place] [address] ProviderJean-Claude MD [address] [place], [place] [phone] Social History Tobacco Use Types Packs/Day Years Used Date Smoking Tobacco: Never Assessed Comments Unknown Sex and Gender Information Value Date Recorded Sex Assigned at Not on file Legal Sex Female 5:42 PM CDT Gender Identity Not on file Sexual Orientation Not on file documented as of this encounter Miscellaneous Notes * Cerner Conversion Note - Historical ProviderMD - 04/28/2019 10:01 AM REPAIRER [place] [id number] MOISE PANDEY :1950 Visit Time:04/28/2019 What to do next Your Diagnosis Pain in unspecified knee, Pain in unspecified knee Instructions From Your Care Team No driving or legal decision for 24 hours after anesthesia. may advance diet as tolerated. May take Nashville 10-325mg 1 tablet by mouth every 4-6 [...] Comments Appointment has been made Where: [address] [facility] [address] [place] [address]- Medications What How Much When Instructions Next [...] activities are safe for you. ??? Take ucsv-jtz-rwxoolk and prescription medicines only as told by [...] 06/25/2001 Document Revised: 11/02/2017 Document Reviewed: 11/02/2017 [employer] Interactive Patient Education ?? 2019 [employer] Knee Arthroscopy, Care After Refer to [...] activities are safe for you. ??? Perform sdxwr-wp-qlzphi exercises only as directed by your health [...] 10/06/2005 Document Revised: 08/18/2016 Document Reviewed: 03/15/2015 [employer] Interactive Patient Education ?? 2018 [employer]. acetaminophen and hydrocodone (a SEET a MIN oh fen and ladonna droe KOE done) Hycet, Lorcet, [place], Verdrocet, Vicodin, Xodol, Zamicet What is the [...] may report side effects to FDA at 5-816-PBN-4679. What other drugs will affect acetaminophen and [...] affect acetaminophen and hydrocodone, including prescription and zsco-jsh-awfczmv medicines, vitamins, and herbal products. Not all [...] to ensure that the information provided by [employer]. ('[employer]') is accurate, up-to-date, and complete, but no guarantee is made to that effect. Drug information contained herein may be time sensitive. [employer] information has been compiled for use by healthcare practitioners and consumers in the [place] and therefore [employer] does not warrant that uses outside of the [place] are appropriate, unless specifically indicated otherwise. [employer] drug information does not endorse drugs, diagnose patients or recommend therapy. [employer] drug information is an informational resource designed [...] effective or appropriate for any given patient. [employer] does not assume any responsibility for any aspect of healthcare administered with the aid of information [employer] provides. The information contained herein is not intended to cover all possible uses, directions, precautions, warnings, drug interactions, allergic reactions, or adverse effects. If you have questions about the drugs you are taking, check with your doctor, nurse or pharmacist. Copyright 2204-0281 [employer]. Version: 15.02. Revision Date: 02/04/2018. Emergency Awareness [...] Assistance with quitting is available by contacting 6-907-OOWO-NOW. This is a free resource providing counseling, [...] was given the opportunity to ask questions. Patient/Cad Manager Name: Patient/Cad Manager Signature: Relationship to Patient: Clinician/Hospital Cad Manager Signature: Date: documented in this encounter Plan of Treatment Not on file documented as of this encounter Visit Diagnoses Not on filedocumented in this encounter Care Teams Imaging Nurse Relationship Specialty Start Date End Date Deejay, Provider Not In The System, [place] [address] PCP - General 04/16/23 documented as of this encounter
--- OUTSIDE RECORDS SUMMARY | 2024-12-08 09:56 | XMS_ITS | Encounter Summary ---
Author Organization [employer] ([place], [place], [place], [place]) Address [address] [place] [address] Care Team Providers Care Go Go Dancer Name Role Phone [facility], Provider Not In The System Primary Care Provider Unavailable Encounter Details Date Type Department Care Team (Late st Contact Info) Description 04/28/2019 Transcribed Document [facility] [place] Medicine [facility] [place] [address] ProviderJean-Claude MD [address] [place], [place] [phone] Social History Tobacco Use Types Packs/Day Years Used Date Smoking Tobacco: Never Assessed Comments Unknown Sex and Gender Information Value Date Recorded Sex Assigned at Not on file Legal Sex Female 5:42 PM CDT Gender Identity Not on file Sexual Orientation Not on file documented as of this encounter Miscellaneous Notes * Cerner Conversion Note - Jean-Claude ProviderMD - 04/28/2019 9:04 AM PROCESSING TECHNICIAN DATE OF PROCEDURE: 04/28/2019 SURGEON: Timothy Foster [...] to the recovery room in satisfactory condition. /[id number] MD MICHAEL Trujillo/AQ / MICHAEL / MODL /[id number] Electronically signed by Leslee Olvera Conversion Medical Equipment Repair Technician Cerner at 07/23/2022 4:25 PM CDT documented in this encounter Plan of Treatment Not on file documented as of this encounter Visit Diagnoses Not on filedocumented in this encounter Care Teams Go Go Dancer Relationship Specialty Start Date End Date Leslee, Provider Not In The System, [place] [address] PCP - General 04/16/23 documented as of this encounter
--- OUTSIDE RECORDS SUMMARY | 2024-12-08 09:56 | XMS_ITS | Encounter Summary ---
Author Organization [facility] Address [address] [place] [address] Care Team Providers Care Ripsaw Grader Name Role Phone Unavailable Primary Care Provider Unavailabl e Reason for Visit * Reason Onset Date Comments IMAGING 09/05/2024 Encounter Details Date Type Department Care Team (Late Contact Info) Description 09/05/2024 Telephone [facility] [address] [place], [place] [phone] [place] [address] [place] [address] [address] [place] [address] IMAGING Social History Tobacco Use [...] Hospital Encounter [facility] General Surgery [address] [place] [address] Sharon Paulino MD [address] [facility] [address] [place] [address] 12/15/2024 7:30 AM EDT - 12/15/2024 10:55 AM EDT Surgery [facility] General Surgery [address] [place] [address] Sharon Paulino MD [address] [facility] [address] [place] [address] LEFT SHOULDER TOTAL ARTHROPLASTY REVISION TO COURTNEY-ARTHROPLASTY POSSIBLE REVISION TO REVERSE TOTAL SHOULDER REPLACEMENT 12/25/2024 1:30 PM EDT Office Visit [facility], [place] [address] Sharon Paulino MD [address] [facility] [address] [place] [address] post op shoulder Scheduled Procedures Name Priority Associated Diagnoses Date/Ti me SHOULDER TOTAL ARTHROPLASTY REVISION Left shoulder pain 12/15/2024 7:30 AM EDT documented as of this encounter Visit Diagnoses Not on filedocumented in this encounter
--- OUTSIDE RECORDS SUMMARY | 2024-12-08 09:56 | XMS_ITS | Clinical Summary ---
Author Organization [facility] Address [address] [place] [address] Care Team Providers Care Physician Coder Name Role Phone KaleeTimothy Primary Care Provider [phone] Allergies Active Allergy Reactions Criticality Noted Date [...] Patient may need Pain Management referral. Discontinue Raritan and use oxycodone 10mg q6h prn. Discussed with patient will not increase this medicine care home prescription opiate use 03/13/2022 Chronic arthritis associated [...] Additional history exists COVID-19 Vaccine ( season) 2024 01/25/2022, 07/18/2021, 01/27/2021, Additional history exists INFLUENZA [...] this topic Medical Devices Implanted Type Area Paddle Dyeing Machine Operator Device Identifier Shelf Expiration Date Model / Serial / Lot Cmt Bone Simplex/P Full Dose /Pk - [id number] Implanted:Qty : 1 on 07/18/2018 by Bautista Luis MD at [facility] Implant Right: Shoulder TRACY RUBEN 09/29/2020 [id number] / / [id number] Stem Hum Univers [place] 6x60mm - [id number] Implanted:Qty : 1 on 07/18/2018 by Bautista Luis MD at [facility] Implant Right: Shoulder ARTHREX 08/30/2022 [id number] / / [id number] Alberto Vaultlock Sm - [id number] Implanted:Qty : 1 on 07/18/2018 by Bautista Luis MD at [facility] Implant Right: Shoulder ARTHREX 12/30/2022 [id number] / / [id number] Hd Hum Univers2 Cocr [id number] - [id number] Implanted:Qty : 1 on 07/18/2018 by Bautista Luis MD at [facility] Implant Right: Shoulder ARTHREX 03/01/2022 [id number] / / [id number] Sut Tw 2/0 38in Wht/Blk - [id number] Implanted:Qty : 3 on 07/18/2018 by Bautista Luis MD at [facility] Implant Right: Shoulder ARTHREX [id number] / / Totl Arth Shldr S3 - [id number] Implanted:Qty : 1 on 07/18/2018 by Bautista Luis MD at [facility] Implant Right: Shoulder ARTHREX CAPTOTLSHLD [id number] / / Procedures Procedure Name Priority Date/Time [...] 5:07 AM EST Performed at: 01 - [facility] [address] [place], [place] [id number] Set Making Machine Operator: Carlos Rod PhD, Phone: [phone] Connor Nunez MD LAB BLOOD ORDERABLES Fin al Result Performing Organization Address [facility] Co de Phone Number [facility] (AMBULATORY) [address] [place] [address], [facility] [address] [place] [address], * Hepatitis C Genotype (12/15/2021 11:55 AM EDT) [facility] Signature Hepatitis C Genotype Comment [facility] Comment: Specimen has insufficient hepatitis C virus RNA to obtain genotyping results. This genotyping assay should only be used for known HCV positive patients with HCV RNA levels above 1000 IU/mL. Please note Comment [facility] Comment: This test was developed and its performance characteristics determined by [facility]. It has not been cleared or approved by the U.S. Food and Drug Administration. The FDA has determined that such clearance or approval is not necessary. This test is used for clinical purposes. It should not be regarded as investigational or for research. Blood 12/15/2021 11:5 5 AM EDT 12/16/2021 Narrative [facility] (AMBULATORY) - 12/21/2021 8:08 PM EDT Performed at: [address] [place] [id number] Set Making Machine Operator: Genna Davenport MD, Phone: [phone] Patient Fasting: Y Connor Nunez MD LAB BLOOD ORDERABLES Fin al Result Performing Organization Address [facility] Co de Phone Number [facility] ([facility]BULATORY) [address] [place] [address], [facility] [address] [place], [place] [id number], * SCANNED - MAMMO (08/23/2021) Anatomical Region Laterality Modality Other Connor Nunez MD CHART REVIEW TABS Fin al Result * Hemoglobin A1c (07/10/2018 3:05 PM EDT) Hemoglobin A1C 5.10 4.80 - 5.60 % 07/10/2018 3:58 PM EDT [facility] Blood Venipuncture / Unknown 07/10/2018 3:05 PM EDT 07/10/2018 3:36 PM EDT Narrative [facility] - 07/10/2018 3:58 PM EDT Hemoglobin A1C Ranges: Increased Risk for Diabetes 5.7% to 6.4% Diabetes >= 6.5% Diabetic Goal < 7.0% Bautista Luis MD LAB BLOOD ORDERABLES Fin al Result [facility]
[address] [place] [address], from Last 3 Months or Most Recently Relevant to Health Maintenance Insurance MEDICARE A & B Member Subscriber Plan / Payer (Ef fective 2013-Present) Name:Farrah Atkinson Member ID:[id number] Relation to Subscriber:Self Name:Farrah Atkinson Subscriber ID:[id number] Payer ID:[id number] Group ID:Not on file Type:Not on file Address: [facility] [id number] [place] [address] Advance Directives * CPR (Attempt to Resuscitate) (Latest Code Status on File) Date Activated Date Inactivated Comments 07/18/2018 6:35 PM 07/19/2018 6:14 PM Question Answer Comments Code Status (Patient has no pulse and is not breathing): CPR (Attempt to Resuscitate) Medical Interventions (Patie nt has pulse or is breathing): Full Level Of Support Discussed With: Patient Care Teams Physician Coder Relationship Specialty Start Date End Date Timothy Granda DO [address] [place] [address] PCP - General Internal Medicine 06/12/23
--- OUTSIDE RECORDS SUMMARY | 2024-12-08 09:56 | XMS_ITS | Encounter Summary ---
Author Organization [facility] Address [address], [address] [place] [address] Care Team Providers Care Measurement Department Chief Clerk Name Role Phone Unavailable Primary Care Provider Unavailabl e Reason for Visit * Reason Onset Date Comments Care Coordination 11/21/2024 Nurse navigato r Encounter Details Date Type Department Care Team (Late Contact Info) Description 11/21/2024 [facility] Orthopedic and Sports Medicine [address] [id number] Willa Lan RN Care Coordination (Nurse navigator) [...] AM EDT Hospital Encounter [facility] General Surgery [address] [place] [address] [place] [address] [place] [address] [address] [place] [address] 12/15/2024 7:30 AM EDT - 12/15/2024 10:55 AM EDT Surgery [facility] General Surgery [address] [place] [address] Sharon Paulino MD [address] [facility] [address] [place] [address] LEFT SHOULDER TOTAL ARTHROPLASTY REVISION TO OCURTNEY-ARTHROPLASTY POSSIBLE REVISION TO REVERSE TOTAL SHOULDER REPLACEMENT 12/25/2024 1:30 PM EDT Office Visit [facility], [place] [address] Sharon Paulino MD [address] [facility] [address] [place] [address] post op shoulder Scheduled Procedures Name Priority Associated Diagnoses Date/Ti me SHOULDER TOTAL ARTHROPLASTY REVISION Left shoulder pain 12/15/2024 7:30 AM EDT documented as of this encounter Visit Diagnoses Not on filedocumented in this encounter
--- OUTSIDE RECORDS SUMMARY | 2024-12-08 09:56 | XMS_ITS | Encounter Summary ---
Author Organization [employer] ([place], [place], [place], [place]) Address [address] [place] [address] Care Team Providers Care Donor Relations Officer Name Role Phone [facility], Provider Not In The System Primary Care Provider Unavailable Encounter Details Date Type Department Care Team (Late st Contact Info) Description 04/28/2019 Transcribed Document [facility] Family Medicine [facility] [place] [address] ProviderJean-Claude MD [address] [place], [place] [id number] Social History Tobacco Use Types Packs/Day Years Used Date Smoking Tobacco: Never Assessed Comments Unknown Sex and Gender Information Value Date Recorded Sex Assigned at Not on file Legal Sex Female 5:42 PM CDT Gender Identity Not on file Sexual Orientation Not on file documented as of this encounter Miscellaneous Notes * Cerner Conversion Note - Historical ProviderMD - 04/28/2019 7:06 AM SCREW EYE ASSEMBLER Pre Procedure Adult Entered On: 04/28/2019 7:12 EST Performed On: 04/28/2019 7:06 EST by ISAMAR MORRISON RN Height and Weight, Clinical Dosing Height Source : Stated Height Entry Format : [place] Height, Feet : 5 ft(Converted to: 152 cm, 60 Inch) Height, Inches : 2 Inch(Converted to: 0 ft 2 Inch, 5.08 cm) Clinical Height : 157.48 cm Weight Source : Standing scale Weight Entry Format : [place] Clinical Dosing Weight : 85 kg Weight, Pounds : 187 lb Body Surface Area (BSA) : 1.86 m2 Body Mass Index : 34.3 kg/m2 (HI) [place] Body Weight : 50 kg ISAMAR MORRISON [...] ISAMAR MORRISON RN - 04/28/2019 7:06 EST [place] Suicide Severity Rating Scale (C-SSRS) CSSRS Past [...] Obtained From : Patient Primary Language : Barbadian Preferred Communication Mode : Verbal Communication Barrier [...] apparent problem Don Score : 21 ISAMAR OMRRISON RN - 04/28/2019 7:06 EST Oxygen Therapy [...] Scale Risk Level : 0-24 Low Risk [place] Fall Interventions : Bed in low position, Call device within reach, Hourly comfort/safety rounds, Non-slip footwear, Personal items within reach, Upper side-rails up, Wheels locked ISAMAR OMRRISON RN - 04/28/2019 7:06 EST Fall Risk [...] on filedocumented in this encounter Care Teams Donor Relations Officer Relationship Specialty Start Date End Date Leslee, Provider Not In The System, [place] [address] PCP - General 04/16/23 documented as of this encounter
--- OUTSIDE RECORDS SUMMARY | 2024-12-08 09:56 | XMS_ITS | Encounter Summary ---
Author Organization [employer] ([place], [place], [place], [place]) Address [address] [place] [address] Care Team Providers Care Bicycle Repairer Name Role Phone [facility], Provider Not In The System Primary Care Provider Unavailable Encounter Details Date Type Department Care Team (Late st Contact Info) Description 04/28/2019 Transcribed Document [facility] Family Medicine [address] [place] [address] ProviderJean-Claude MD [address] [place], [place] [id number] Social History Tobacco Use Types Packs/Day Years Used Date Smoking Tobacco: Never Assessed Comments Unknown Sex and Gender Information Value Date Recorded Sex Assigned at Not on file Legal Sex Female 5:42 PM CDT Gender Identity Not on file Sexual Orientation Not on file documented as of this encounter Miscellaneous Notes * Cerner Conversion Note - Historical ProviderMD - 04/28/2019 8:29 AM OIL CHANGER Pain Assessment Entered On: 04/28/2019 9:28 EST [...] on filedocumented in this encounter Care Teams Bicycle Repairer Relationship Specialty Start Date End Date Sjh, Provider Not In The System, [place] [address] PCP - General 04/16/23 documented as of this encounter
--- OUTSIDE RECORDS SUMMARY | 2024-12-08 09:56 | XMS_ITS | Referral Summary ---
Author Organization [employer] ([place], [place], [place], [place]) Address [address] [place] [address] Care Team Providers Care Typesetting Machine Operator/Tender Name Role Phone [facility] [...] Date Dereje rded Speak language other than Nepalese at home Not on file 04/12/2023 Want [...] of Treatment Not on file Care Teams Typesetting Machine Operator/Tender Relationship Specialty Start Date End Date [facility], Provider Not In The System, [place] [address] PCP - General 04/16/23
--- OUTSIDE RECORDS SUMMARY | 2024-12-08 09:56 | XMS_ITS | Encounter Summary ---
Author Organization [employer] ([place], [place], [place], [place]) Address [address] [place] [address] Care Team Providers Care Printed Products Assembler Name Role Phone [facility], Provider Not In The System Primary Care Provider Unavailable Encounter Details Date Type Department Care Team (Late st Contact Info) Description 04/28/2019 Transcribed Document [facility] Family Medicine [address] [place] [address] ProviderJean-Claude MD [address] [place], [place] [id number] Social History Tobacco Use Types Packs/Day Years Used Date Smoking Tobacco: Never Assessed Comments Unknown Sex and Gender Information Value Date Recorded Sex Assigned at Not on file Legal Sex Female 5:42 PM CDT Gender Identity Not on file Sexual Orientation Not on file documented as of this encounter Miscellaneous Notes * Cerner Conversion Note - Historical ProviderMD - 04/28/2019 9:51 AM BEAN SPROUT GROWER [place] [id number] MOISE PANDEY :1950 Visit Time:04/28/2019 What to do next Your Diagnosis Pain in unspecified knee, Pain in unspecified knee Instructions From Your Care Team No driving or legal decision for 24 hours after anesthesia. may advance diet as tolerated. May take West River 10-325mg 1 tablet by mouth every 4-6 [...] Within 2 to 3 days Where: [address] [facility] [address] [place] [address]- Medications What How Much When Instructions Next [...] activities are safe for you. ??? Take lien-fmk-mawjfdy and prescription medicines only as told by [...] 06/25/2001 Document Revised: 11/02/2017 Document Reviewed: 11/02/2017 Xquva Interactive Patient Education ?? 2019 [employer] Inc. Knee Arthroscopy, Care After Refer to [...] activities are safe for you. ??? Perform rzlcd-iq-ayltzh exercises only as directed by your health [...] 10/06/2005 Document Revised: 08/18/2016 Document Reviewed: 03/15/2015 [employer] Interactive Patient Education ?? 2018 [employer]. acetaminophen and hydrocodone (a SEET a MIN oh fen and ladonna droe KOE done) Hycet, Lorcet, [place], Verdrocet, Vicodin, Xodol, Zamicet What is the [...] may report side effects to FDA at 0-089-LDL-7319. What other drugs will affect acetaminophen and [...] affect acetaminophen and hydrocodone, including prescription and pyuh-chn-krxovqo medicines, vitamins, and herbal products. Not all [...] to ensure that the information provided by [employer]. ('[employer]') is accurate, up-to-date, and complete, but no guarantee is made to that effect. Drug information contained herein may be time sensitive. [employer] information has been compiled for use by healthcare practitioners and consumers in the [place] and therefore [employer] does not warrant that uses outside of the [place] are appropriate, unless specifically indicated otherwise. [employer] drug information does not endorse drugs, diagnose patients or recommend therapy. [employer] drug information is an informational resource designed [...] effective or appropriate for any given patient. [employer] does not assume any responsibility for any aspect of healthcare administered with the aid of information [employer] provides. The information contained herein is not intended to cover all possible uses, directions, precautions, warnings, drug interactions, allergic reactions, or adverse effects. If you have questions about the drugs you are taking, check with your doctor, nurse or pharmacist. Copyright 0833-4051 [employer]. Version: 15.02. Revision Date: 02/04/2018. Emergency Awareness [...] Assistance with quitting is available by contacting 8-041-FIWX-NOW. This is a free resource providing counseling, [...] was given the opportunity to ask questions. Patient/Hazardous Waste Remover Name: Patient/Hazardous Waste Remover Signature: Relationship to Patient: Clinician/Hospital Hazardous Waste Remover Signature: Date: documented in this encounter Plan of Treatment Not on file documented as of this encounter Visit Diagnoses Not on filedocumented in this encounter Care Teams Printed Products Assembler Relationship Specialty Start Date End Date Leslee, Provider Not In The System, [place] [address] PCP - General 04/16/23 documented as of this encounter
--- OUTSIDE RECORDS SUMMARY | 2024-12-08 09:56 | XMS_ITS | Encounter Summary ---
Author Organization [employer] ([place], [place], [place], [place]) Address [address] [place] [address] Care Team Providers Care Rotary Driller Helper Name Role Phone [facility], Provider Not In The System Primary Care Provider Unavailable Encounter Details Date Type Department Care Team (Late st Contact Info) Description 04/28/2019 Transcribed Document [facility] Family Medicine [address] [place] [address] ProviderJean-Claude MD [address] [place], [place] [id number] Social History Tobacco Use Types Packs/Day Years Used Date Smoking Tobacco: Never Assessed Comments Unknown Sex and Gender Information Value Date Recorded Sex Assigned at Not on file Legal Sex Female 5:42 PM CDT Gender Identity Not on file Sexual Orientation Not on file documented as of this encounter Miscellaneous Notes * Cerner Conversion Note - Historical ProviderMD - 04/28/2019 8:05 AM ESTIMATOR PROJECT MANAGER [facility] Main OR PreOp Summary Primary Physician: MADISON OSPINA MD-ORT Finalized Date/Time: 04/28/19 09:32:12 Pt. Name: MOISE ATKINSON/Sex: 1950 Female Med Rec #: [id number] Physician: MADISON OSPINA MD-ORT Financial #: [id number] Pt. Type: O Room/Bed: Admit/Disch: 04/28/19 05:30:00 - Institution: [facility] PreOp Case Times Entry 1 In Preop 04/28/19 05:40:00 Ready for Holding n/a Room Patient Ready for 04/28/19 07:15:00 Surgery Patient Out of Preop 04/28/19 07:36:00 Patient Out of n/a Holding Room Last Modified By: ISAMAR MORRISON, SPENCER 04/28/19 09:32:08 [facility] PreOp Case Times Audit 04/28/19 09:32:08 Veneer Joiner: FLOYDSF Modifier: FLOYDSF <+> 1 Patient Out of Preop Finalized By: ISAMAR MORRISON, RN Document Signatures Signed By: ISAMAR MORRISON RN 04/28/19 09:32 Electronically signed by May [facility] Conversion Market Research Interviewer Cerner at 07/23/2022 4:31 PM CDT documented in this encounter Plan of Treatment Not on file documented as of this encounter Visit Diagnoses Not on filedocumented in this encounter Care Teams Rotary Driller Helper Relationship Specialty Start Date End Date [facility], Provider Not In The System, [place] [address] PCP - General 04/16/23 documented as of this encounter
--- OUTSIDE RECORDS SUMMARY | 2024-12-08 09:56 | XMS_ITS | Clinical Summary ---
Author Organization [facility] Address [address] [place] [address] Care Team Providers Care Form Block Maker Name Role Phone Unavailable Primary Care Provider [...] (ZANAFLEX) 4 MG tablet 03/20/2024 Active CREON [id number] units CPEP delayed release capsule TAKE ONE [...] Willa Lan Orthopedic Nurse Navigator Phone number: [phone] Problem Noted Date Diagnosed Date Left shoulder pain 11/05/2024 Encounters Date Type Department Care Team Description 11/21/2024 Telephone [facility] Orthopedic [facility] [address] [address] Willa Lan RN Care Coordination (Nurse navigator) 11/20/2024 Telephone [facility] Orthopaedics and Spine [address] [place] [phone] Sharon Paulino MD Surgery Scheduling (LT SHDLR) 11/05/2024 Prep for Procedure [facility] Orthopedic [facility] [address] [address] Laisha Galvan MA 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 [place], [place] [id number] Sharon Paulino MD [address] [facility] [address] [place] [address] 12/15/2024 7:30 AM EDT - 12/15/2024 10:55 AM EDT Surgery [facility] General Surgery [facility] [place] [address] Sharon Paulino MD [address] [facility] [address] [place] [address] LEFT SHOULDER TOTAL ARTHROPLASTY REVISION TO COURTNEY-ARTHROPLASTY POSSIBLE REVISION TO REVERSE TOTAL SHOULDER REPLACEMENT 12/25/2024 1:30 PM EDT Office Visit [facility]opa[facility] [place], [place] [address] Sharon Paulino MD [address] [facility] [address] [place] [address] post op shoulder Scheduled Procedures Name Priority [...] 02/15/2016 02/14/2015 Annual Wellness Visit (Medicare) 05/08/2024 Flu vaccine (#1) 10/31/2024 02/20/2024, 12/2022, 01/25/2022, Additional history exists COVID-19 Vaccine ( season) 2024 02/20/2024, 02/09/2023, 01/25/2022, Additional history exists Respiratory Syncytial Virus [...] fective 2013-Present) Name:Farrah Atkinson Relation to Subscriber:Self Name:AlfiekarinMonroe carsonernestina Grant Payer ID:Not on file Group ID:Not on file Type:Not on file Address: [address]
--- OUTSIDE RECORDS SUMMARY | 2024-12-08 09:56 | XMS_ITS | Encounter Summary ---
Author Organization [employer] ([place], [place], [place], [place]) Address [address] [place] [address] Care Team Providers Care Creative Services Specialist Name Role Phone [facility], Provider Not In The System Primary Care Provider Unavailable Encounter Details Date Type Department Care Team (Late st Contact Info) Description 04/28/2019 Transcribed Document [facility] Family Medicine [facility] [place] [address] ProviderJean-Claude MD [address] [place], [place] [id number] Social History Tobacco Use Types Packs/Day Years Used Date Smoking Tobacco: Never Assessed Comments Unknown Sex and Gender Information Value Date Recorded Sex Assigned at Not on file Legal Sex Female 5:42 PM CDT Gender Identity Not on file Sexual Orientation Not on file documented as of this encounter Miscellaneous Notes * Cerner Conversion Note - Jean-Claude ProviderMD - 04/28/2019 9:47 AM JUICE WEIGHER Patient Education Materials Follows: General Anesthesia, Adult, [...] activities are safe for you. ??? Take osnx-noo-ldssicp and prescription medicines only as told by [...] 06/25/2001 Document Revised: 11/02/2017 Document Reviewed: 11/02/2017 [employer] Interactive Patient Education ? 2019 [employer]. Knee Arthroscopy, Care After Refer to [...] activities are safe for you. ??? Perform kmxfz-ym-lbkvaf exercises only as directed by your health [...] 03/15/2015 Elsevier Interactive Patient Education ? 2018 [employer] Inc. documented in this encounter Plan of Treatment Not on file documented as of this encounter Visit Diagnoses Not on filedocumented in this encounter Care Teams Creative Services Specialist Relationship Specialty Start Date End Date Leslee, Provider Not In The System, [place] [address] PCP - General 04/16/23 documented as of this encounter
--- OUTSIDE RECORDS SUMMARY | 2024-12-08 09:56 | XMS_ITS | Clinical Summary ---
Author Organization Healthcare Address [address] [place] [address] Care Team Providers Care Liquor Grinder Mill Operator Name Role Phone Timothy Granda DO Primary Care Provider [phone] Allergies Active Allergy Reactions Criticality Noted Date [...] preservative free 02/14/2015 Influenza, trivalent, adjuvanted 12/22/2019 MobileCause COVID-19 Vaccine (Blue Cap) 18+ 06/10/19 Moderna COVID-19 Vaccine (Re d Cap) 12+ years 07/18/2021,01/27/2021 Moderna COVID-19 Vaccine Bivalent 6months+ 01/25 PPD Skin Test (TB Skin Test) 09/04/2022 Swipe.to Covid-19 Vaccine 12y+ , Mahesh Protein, PF, [...] drink first t mini in the morning (EYE-RN CORRECTIONS) to steady your nerves or to get [...] 02/14/2015 [facility]-Medicare Annual Wellness (AWV) 03/13/2023 03/13/2022 [facility]-Depression Screening 03/27/2024 03/27/2023 [id number] Vaccine ( season) 2024 02/09/2023, 01/25/2022, 07/18/2021, Additional history exists [facility]-Influenza Vaccine (#1) 12/01/202402/09, 01/25/2022, 05/31/2021, Additional [...] Antigen Negative Negative 08/02/2023 7:49 PM EDT [facility] Hepatitis A Antibody IgM Negative Negative 08/02/2023 7:49 PM EDT [facility] Hepatitis B Core Antibody IgM Negative Negative 08/02/2023 7:49 PM EDT [facility] Blood Venous blood specimen / Unknown Venipuncture / Unknown 08/02/2023 2:56 PM EDT 08/02/2023 3:22 PM EDT Narrative [facility] - 08/02/2023 7:49 PM EDT [...] Final R esult Performing Organization Address City/State/[facility] Co de Phone Number [facility] [address] [place] [address] * Flexible Sigmoidoscopy (02/21/2023 10:25 AM EST) [...] Misti Page MD Adam Rooks, MD Proceduralist ceo and president Adama Montes CRNA CRNA Harris, Kristi A, RN Endo Nurse Butch Little MD Fellow Tete Whitmore Endo Anesthesiologist Assistant Certified Preprocedure A history and physical has been [...] of bowel preparation was evaluated using the [place] Bowel Preparation Scale with scores of: left [...] of bowel preparation was evaluated using the [place] Bowel Preparation Scale with scores of: right [...] Most Recently Relevant to Health Maintenance Insurance [facility] MEDICARE Member Subscriber Plan / Payer (Ef fective 2013-Present) Name:Farrah Atkinson Member ID:[id number] Relation to Subscriber:Self Name:Fararh Atkinson Subscriber ID:[id number] Payer ID:MEDICARE Group ID:Not on file Type:Medicare Address: [place] [phone] Advance Directives * Full Code (Latest Code [...] Patient has decision-making capacity? Yes Care Teams Liquor Grinder Mill Operator Relationship Specialty Start Date End Date Timothy Granda DO [address] [place] [address] PCP - General 05/25/23
--- OUTSIDE RECORDS SUMMARY | 2024-12-08 09:56 | XMS_ITS ---
Author Organization [facility] Address [address] [id number] Care Team Providers Care Cage Loader Name Role Phone Timothy Granda DO Primary Care Provider [phone] Hepatitis C Program Status:Paused (Paused) Start date:08/03/2022 Enrollment date:08/03/2022 Enrollment reason:HCV Continued Care and Services Coordination
--- OUTSIDE RECORDS SUMMARY | 2024-12-08 09:56 | XMS_ITS | Encounter Summary ---
Author Organization [employer] ([place], [place], [place], [place]) Address [address] [place] [address] Care Team Providers Care Radio Program Checker Name Role Phone [facility], Provider Not In The System Primary Care Provider Unavailable Encounter Details Date Type Department Care Team (Late st Contact Info) Description 04/28/2019 Transcribed Document [facility] Family Medicine [address] [place] [address] ProviderJean-Claude MD [address] [place], [place] [id number] Social History Tobacco Use Types Packs/Day Years Used Date Smoking Tobacco: Never Assessed Comments Unknown Sex and Gender Information Value Date Recorded Sex Assigned at Not on file Legal Sex Female 5:42 PM CDT Gender Identity Not on file Sexual Orientation Not on file documented as of this encounter Miscellaneous Notes * Cerner Conversion Note - Historical ProviderMD - 04/28/2019 8:05 AM HOT MIX OPERATOR [facility] Main OR PostOp Summary Primary Physician: MADISON OSPINA MD-ORT Finalized Date/Time: 04/28/19 10:18:29 Pt. Name: MOISE ATKINSON/Sex: 1950 Female Med Rec #: [id number] Physician: MADISON OSPINA MD-ORT Financial #: [id number] Pt. Type: O Room/Bed: Admit/Disch: 04/28/19 05:30:00 - Institution: [facility] Main OR PostOp Case Times Entry 1 In PACU II 04/28/19 09:36:00 Ready for PACU II 04/28/19 10:15:00 Discharge Discharge from PACU 04/28/19 10:15:00 II Last Modified By: Shanel Conrad RN 04/28/19 10:18:24 Finalized By: Shanel Conrad, RN Document Signatures Signed By: Shanel Conrad RN 04/28/19 10:18 Electronically signed by May [facility] Conversion Senior Asic Design Engineer Cerner at 07/23/2022 4:27 PM CDT documented in this encounter Plan of Treatment Not on file documented as of this encounter Visit Diagnoses Not on filedocumented in this encounter Care Teams Radio Program Checker Relationship Specialty Start Date End Date [facility], Provider Not In The System, [place] [address] PCP - General 04/16/23 documented as of this encounter
== END 2024-12-05 23:59 ==
LOC: LAB.DROPOF 12-08 09:52
PROVIDERS: PCP Family Medicine; Visit Provider Family Medicine
DX: N28.9 Disorder of kidney and ureter, unspecified (principal); D64.9 Anemia, unspecified
CPT/HCPCS: 80053; 85025

== ENCOUNTER 2024-12-11 15:24 | Outpatient (CLI) | payer MEDICARE, OTHER, SELFPAY ==
--- OUTSIDE RECORDS SUMMARY | 2024-04-17 07:45 | XMS_ITS ---
Author Organization [facility] Address [address] [place] [address] Care Team Providers Care Outbound Sales Professional Name Role Phone Timothy Granda DO Primary Care Provider Tha Chaudhry Unavailable [phone] Jesus Rose Unavailable REASON FOR VISIT NEW PATIENT Encounters Encounter Location Date Provider Diagnosis [facility] [address] [place] [address] 04/17/2024 Jesus Rose Plan Of Treatment No Information Progress Notes * KRISTACIERRA MonroeMaryellenOB:[birth year] (74 yo F)Acc No.[id number]:04/17/2024 Progress Notes Patient: Farrah SEAY Provider: Leelee Rose :1950 A ge:73 Y S ex:Female Date:04/17/2024 [facility] Pcp:Timothy Granda DO Subjective: * Chief Complaints: * 1 . NEW PATIENT. * Medical History: Objective: * Vitals: Assessment: Plan: * Treatment: * * Electronic signature of Reza Rose APRN on 12/11/2024 at 03:26 PM EDT Sign off status: Pending * Provider: Leelee Rose Date: 0 04/17/2024 Generated for Brisa conway/Sahra/Angela on: 0 12/11/2024 03:26 PM EDT
--- OUTSIDE RECORDS SUMMARY | 2024-05-13 09:30 | XMS_ITS ---
Author Organization [facility] Address [address] [place] [address] Care Team Providers Care Film Developer Name Role Phone Timothy Granda DO Primary Care Provider Tha Chaudhry Unavailable [phone] REASON FOR VISIT NEW PATIENT Encounters Encounter Location Date Provider Diagnosis [facility] [address] [place] [address] 05/13/2024 Tha Krishnamurthy Plan Of Treatment No Information Progress Notes * Giselle ATKINSONOB:[birth year] (74 yo F)Acc No.[id number]:05/13/2024 Progress Notes Patient: Farrah SEAY Provider: Sarabjit Krishnamurthy MD :1950 A ge:73 Y S ex:Female Date:05/13/2024 [facility] Pcp:Timothy Granda DO Subjective: * Chief Complaints: * 1 . NEW PATIENT. * Medical History: Objective: * Vitals: Assessment: Plan: * Treatment: * * Electronic signature of Didier Krishnamurthy MD on 12/11/2024 at 03:26 PM EDT Sign off status: Pending * Provider: Sarabjit Krishnamurthy MD Date: 0 05/13/2024 Generated for Brisa conway/Sahra/eTnamsmitting on: 0 12/11/2024 03:26 PM EDT
--- OUTSIDE RECORDS SUMMARY | 2024-06-17 09:30 | XMS_ITS ---
Author Organization [facility] Address [address] [place] [address] Care Team Providers Care Steel Pickler Name Role Phone Timothy Granda DO Primary Care Provider Tha Chaudhry [facility] [phone] REASON FOR VISIT NEW PATIENT Encounters Encounter Location Date Provider Diagnosis [facility] [address] [place] [address] 06/17/2024 Tha Krishnamurthy Plan Of Treatment No Information Progress Notes * Giselle ATKINSONOB:[birth year] (74 yo F)Acc No.[id number]:06/17/2024 Progress Notes Patient: Farrah SEAY Provider: Sarabjit Krishnamurthy MD :1950 A ge:73 Y S ex:Female Date:06/17/2024 [facility] Pcp:Timothy Granda DO Subjective: * Chief Complaints: * 1 . NEW PATIENT. * Medical History: Objective: * Vitals: Assessment: Plan: * Treatment: * * Electronic signature of Didier Krishnamurthy MD on 12/11/2024 at 03:26 PM EDT Sign off status: Pending * Provider: Sarabjit Krishnamurthy MD Date: 06/17/2024 Generated for Brisa conway/Sahra/eTnamsmitting on: 0 12/11/2024 03:26 PM EDT
--- NOTE | 2024-12-11 15:15 | CA_ITS ---
APPROVED REPORT EXAM: Comprehensive 2D, Doppler, and color-flow Echocardiogram Data Operations Leader: Lidia Moe RVT Ht: 5 ft 1 in Wt: 170lbs BSA: 1.76 BP: 116/78 mmHg Indications: MURMUR,PRE-OP 2D Dimensions LA Volume 27.10 mL LA Volume Index 15.40 mL/m2 (M/F) 16-34 M-Mode Dimensions RVDd 2.75 cm (0.9-2.6) LA Diam 2.67 cm (1.9-4.0) LVDd 3.71 cm (3.5-5.7) LVDs 2.22 cm (3.5-5.7) IVSd 1.03 cm (0.6-1.1) PWd 0.53 cm (0.6-1.1) EF (Teich) 71.60% FS 40.20% EDV (Teich) 58.50 mL TAPSE 2.18 (<1.7) ESV (Teich) 16.60 mL LV Diastology E Decel Time 233 (160-240 msec) E/A Ratio 0.7 Aortic Valve ROXANNE Index 0.87 cm2/m2 AoV Peak Ish. 233.0 (50-130 cm/s) AI PHT 657.00 ms AO Peak GR. 21.80 mmHg AO Mean GR. 10.70 (<5 mmHg) AO VTI 37.9 (18-25 cm) ROXANNE (VTI) 1.57 (2.5-4.5 cm2) Mitral Valve MV E Max Ish. 61.0 (40-130 cm/s) MV A Velocity 84.0 (40-130 cm/s) E/A Ratio 0.72 MV PHT 68.0 ms Pulmonary Valve PV Peak Velocity 74.0 (50-150 cm/s) Tricuspid Valve TR P. Velocity 220.00 cm/s RAP Estimate 8.00 mmHg RVSP 27.40 mmHg Left Ventricle The left ventricle is normal size. Left ventricular systolic function is normal. The left ventricular ejection fraction is within the normal range. There is increased left ventricular wall thickness. There is normal LV segmental wall motion. The left ventricular diastolic function is indeterminate. LVEF is 60%. Right Ventricle The right ventricle is normal size. The right ventricular systolic function is normal. Atria The left atrium size is normal. The right atrium size is normal. There is no color Doppler evidence of interatrial shunt. Aortic Valve The aortic valve is mildly thickened. Mild aortic stenosis present. ROXANNE by continuity equation is 1.6 cm2. Peak velocity 2.3 m/s. Mean AV gradient 12 mmHg, max AV gradient 21 mmHg. Mild aortic regurgitation is present. Mitral Valve The mitral valve is normal in structure. No evidence of mitral valve stenosis. Trace mitral regurgitation is present. Tricuspid Valve The tricuspid valve leaflets are thin and pliable. Trace tricuspid regurgitation. There is insufficient TR jet to estimate RVSP. Pulmonic Valve The pulmonary valve is grossly normal in structure. Trace pulmonic valve regurgitation is present. Great Vessels The aortic root is normal in size. IVC is normal in size and collapses >50% with inspiration. Pericardium There is no pericardial effusion. Other Information Study Quality: Fair Conclusion Normal biventricular systolic function. Mild (ROXANNE by continuity equation is 1.6 cm2. Peak velocity 2.3 m/s. Mean AV gradient 12 mmHg, max AV gradient 21 mmHg). Mild AI. Electronically signed by : Ophelia Lindsey MD 12/12/2024 14:16:38
--- OUTSIDE RECORDS SUMMARY | 2024-12-11 15:26 | XMS_ITS | Patient Health Record ---
Author Organization [facility] Address [address] [place] [address] Care Team Providers Care Integrated Logistics Support Manager Name Role Phone Timothy Granda DO Primary Care Provider Tha Chaudhry Unavailable [phone] Jesus Rose Unavailable Unavailable Reason For Referral No Information Encounters Encounter Location Date Provider Diagnosis [facility] [address] [place] [address] 04/01/2024 Tha Krishnamurthy [facility] [address] [place] [address] 05/13/2024 Tha Krishnamurthy [facility] [address] [place] [address] 06/17/2024 Tha Krishnamurthy Plan Of Treatment No Information Insurance Providers Payer Name Payer Address Payer Phone Subscriber Number Group Number Insured Name Patient Relationship to Insured Coverage Start Date Coverage End Date Medicare CGS Administrators [address] [id number] Farrah Anna Self - patient is the insured
--- OUTSIDE RECORDS SUMMARY | 2024-12-11 15:26 | XMS_ITS | Encounter Summary ---
Author Organization Healthcare Address [address] [place] [address] Care Team Providers Care Textile Converter Name Role Phone Timothy Granda DO Primary Care Provider [phone] Sadia Campo ENVIRONMENTAL TEST TECHNICIAN Unavailable Unavailable Encounter Details Date Type Department Care Team (Late st Contact Info) Description 07/24/2023 Lab Requisition [facility] [address] [place] [address] Miky Coleman MD [address] [place] [address] Encounter for general adult medical [...] place to sleep or slept in a chcf (including now)? Patient refused 07/23/2023 CAGE ASSESSMENT [...] drink first t mini in the morning (EYE-CIVIL CAD TECH) to steady your nerves or to get [...] at day 1 07/25/2023 12:01 AM EDT [facility] Swab (Nares and Renata Rectal) 07/23/2023 9:00 AM EDT 07/24/2023 4:19 AM EDT us Miky Coleman MD LAB MICROBIOLOGY - GEN ERAL ORDERABLES Final Result [facility] [address] [place] [address] documented in this encounter Visit Diagnoses Diagnosis [...] as of this encounter Care Teams Textile Converter Relationship Specialty Start Date End Date Timothy Granda DO [address] [place] [address] PCP - General 05/25/23 Sadia Campo, [place] [address] French Binder Lithoplate Maker 08/03/22 06/21/24 documented as of this encounter
--- OUTSIDE RECORDS SUMMARY | 2024-12-11 15:26 | XMS_ITS | Encounter Summary ---
Author Organization [facility] Address [address] [facility], [address] [place] [address] Care Team Providers Care Project Manager Retail Name Role Phone Unavailable Primary Care Provider Unavailabl e Reason for Visit * Reason Onset Date Comments Surgery Scheduling 12/08/2024 Encounter Details Date Type Department Care Team (Late st Contact Info) Description 12/08/2024 Telephone [facility], [place] [address] Sharon Paulino MD [address] [place] [address] [address] [place] [address] Surgery Scheduling Social History Tobacco [...]
--- OUTSIDE RECORDS SUMMARY | 2024-12-11 15:26 | XMS_ITS | Encounter Summary ---
Author Organization Healthcare Address [address] [place] [address] Care Team Providers Care Corporate Accountant Name Role Phone Chandra Leahy MD Primary Care Provider [phone] Timothy Granda DO Primary Care Provider [phone] Sadia Campo STYLIST APPRENTICE Unavailable Unavailable Encounter Details Date Type Department Care Team (Late st Contact Info) Description 08/14/2022 Lab Requisition [facility] [address] [place] [address] Dilip Lloyd MD [address] [address] Encounter for general adult medical [...] drink first t mini in the morning (EYE-SLD TEACHER) to steady your nerves or to get [...] LAB MICROBIOLOGY - GENERAL ORDERABLES Final Result [facility] [address] [place] [address] documented in this encounter Visit Diagnoses Diagnosis Encounter for general adult medical examination without abnormal findings documented in this encounter Additional Health Concerns Infection Onset Date Last Indicated Resolved Time COVID-19 Rule-Out 07/22/2023 07/22/2023 07/22/2023 12:14 PM EDT C. difficile Rule-Out 07/26/2023 08/01/20232023 1:07 AM EDT Gastrointestinal Rule-Out 08/02/2023 08/01/2023 3:00 AM EDT documented as of this encounter Care Teams Corporate Accountant Relationship Specialty Start Date End Date Chandra Leahy MD [address] [place] [address] PCP - General 08/02/22 05/24/23 Timothy Granda DO [address] [place] [address] PCP - General 05/25/23 Sadia Campo, [place] [address] Cloth Cutting Machine Operator Mental Health Nurse Practitioner 08/03/22 06/21/24 documented as of this encounter
--- OUTSIDE RECORDS SUMMARY | 2024-12-11 15:26 | XMS_ITS | Encounter Summary ---
Author Organization [facility] Address [address] [place] [address], [address] [place] [address] Care Team Providers Care Pin Sorter And Bagger Name Role Phone Unavailable Primary Care Provider Unavailabl e Reason for Visit * Reason Onset Date Comments Care Coordination 11/21/2024 Nurse navigato r Encounter Details Date Type Department Care Team (Late st Contact Info) Description 11/21/2024 Telephone [facility] [place] [phone] Willa Lan RN Care Coordination (Nurse navigator) [...]
--- OUTSIDE RECORDS SUMMARY | 2024-12-11 15:26 | XMS_ITS | Encounter Summary ---
Author Organization [facility] Address [address] [facility], [address] [place] [address] Care Team Providers Care Mediator Name Role Phone Unavailable Primary Care Provider Unavailabl e Reason for Visit * Reason Onset Date Comments Surgery Scheduling 11/20/2024 LT SHDLR Encounter Details Date Type Department Care Team (Late st Contact Info) Description 11/20/2024 Telephone [facility] [address] [facility] [address] [place] [id number] [place] [address] [place] [address] [address] [place] [address] Surgery Scheduling (LT SHDLR) Social [...]
--- OUTSIDE RECORDS SUMMARY | 2024-12-11 15:26 | XMS_ITS | Clinical Summary ---
Author Organization [facility] Address [address] [place] [address] Care Team Providers Care Bead Wire Taper Name Role Phone KaleeTimothy Primary Care Provider [phone] Allergies Active Allergy Reactions Criticality Noted Date [...] Patient may need Pain Management referral. Discontinue Deming and use oxycodone 10mg q6h prn. Discussed with patient will not increase this medicine supervisor intermediates prescription opiate use 03/13/2022 Chronic arthritis associated [...] this topic Medical Devices Implanted Type Area Project Eng Device Identifier Shelf Expiration Date Model / Serial / Lot Cmt Bone Simplex/P Full Dose /Pk - [id number] Implanted:Qty : 1 on 07/18/2018 by Bautista Luis MD at [facility] Implant Right: Shoulder TRACY RUBEN 09/29/2020 [id number] / / [id number] Stem Hum Univers Vivian 6x60mm - [id number] Implanted:Qty : 1 on 07/18/2018 by Bautista Luis MD at [facility] Implant Right: Shoulder ARTHREX 08/30/2022 [id number] / / [id number] Alberto Vaultlock Sm - [id number] Implanted:Qty : 1 on 07/18/2018 by Bautista Luis MD at [facility] Implant Right: Shoulder ARTHREX 12/30/2022 [id number] / / [id number] Hd Hum Univers2 Cocr 27q39xc - [id number] Implanted:Qty : 1 on 07/18/2018 by Bautista Luis MD at [facility] Implant Right: Shoulder ARTHREX 03/01/2022 [id number] / / [id number] Sut Tw 2/0 38in Wht/Blk - [id number] Implanted:Qty : 3 on 07/18/2018 by Bautista Luis MD at [facility] Implant Right: Shoulder ARTHREX [id number] / / Totl Arth Shldr S3 - [id number] Implanted:Qty : 1 on 07/18/2018 by Bautista Luis MD at [facility] Implant Right: Shoulder ARTHREX CAPTOTLSHLD [id number] / / Procedures Procedure Name Priority Date/Time [...] 5:07 AM EST Performed at: 01 - [facility] [address] [place], [place] [id number] Legal Support Specialist: Carlos Rod PhD, Phone: [phone] Connor Nunez MD LAB BLOOD ORDERABLES Fin al Result Performing Organization Address [facility] Co de Phone Number [facility] [address] [place] [address], [facility] [address] [place] [address], * Hepatitis C Genotype (12/15/2021 11:55 AM EDT) [facility] Signature Hepatitis C Genotype Comment [facility] Comment: Specimen has insufficient hepatitis C virus RNA to obtain genotyping results. This genotyping assay should only be used for known HCV positive patients with HCV RNA levels above 1000 IU/mL. Please note Comment [facility] Comment: This test was developed and its performance characteristics determined by [facility]. It has not been cleared or approved by the U.S. Food and Drug Administration. The FDA has determined that such clearance or approval is not necessary. This test is used for clinical purposes. It should not be regarded as investigational or for research. Blood 12/15/2021 11:5 5 AM EDT 12/16/2021 Narrative [facility] - 12/21/2021 8:08 PM EDT Performed at: [address] [place] [id number] Legal Support Specialist: Genna Davenport MD, Phone: [phone] Patient Fasting: Y Connor Nunez MD LAB BLOOD ORDERABLES Fin al Result Performing Organization Address [facility] Co de Phone Number [facility] [address] [place] [address], [facility] [address] [place], [place] [id number], * SCANNED - MAMMO (08/23/2021) Anatomical Region Laterality Modality Other Connor Nunez MD CHART REVIEW TABS Fin al Result * Hemoglobin A1c (07/10/2018 3:05 PM EDT) Hemoglobin A1C 5.10 4.80 - 5.60 % 07/10/2018 3:58 PM EDT [facility] Blood Venipuncture / Unknown 07/10/2018 3:05 PM EDT 07/10/2018 3:36 PM EDT Narrative [facility] - 07/10/2018 3:58 PM EDT Hemoglobin A1C Ranges: Increased Risk for Diabetes 5.7% to 6.4% Diabetes >= 6.5% Diabetic Goal < 7.0% Bautista Luis MD LAB BLOOD ORDERABLES Fin al Result [facility]
[address] [place] [address], from Last 3 Months or Most Recently Relevant to Health Maintenance Insurance MEDICARE A & B Member Subscriber Plan / Payer (Ef fective 2013-Present) Name:Farrah Atkinson Member ID:[id number] Relation to Subscriber:Self Name:Farrah Atkinson Subscriber ID:[id number] Payer ID:[id number] Group ID:Not on file Type:Not on file Address: [facility] [address] [address] [place] [address] Advance Directives * CPR (Attempt to Resuscitate) (Latest Code Status on File) Date Activated Date Inactivated Comments 07/18/2018 6:35 PM 07/19/2018 6:14 PM Question Answer Comments Code Status (Patient has no pulse and is not breathing): CPR (Attempt to Resuscitate) Medical Interventions (Patie nt has pulse or is breathing): Full Level Of Support Discussed With: Patient Care Teams Bead Wire Taper Relationship Specialty Start Date End Date Timothy Granda DO [address] [place] [address] PCP - General Internal Medicine 06/12/23
--- OUTSIDE RECORDS SUMMARY | 2024-12-11 15:26 | XMS_ITS | Encounter Summary ---
Author Organization [facility] Address [address] [place] [id number] Care Team Providers Care Ripsawyer Name Role Phone GabrielTimothy armenta Primary Care Provider [phone] Reason for Visit * Reason Comments Med Refill Encounter Details Date Type Department Care Team (Late st Contact Info) Description 12/22/2021 Refill [facility] [address] [place] [address] Connor Nunez MD [address] [place] [address] Chronic arthritis associated with viral [...] documented as of this encounter Care Teams Ripsawyer Relationship Specialty Start Date End Date Timothy Granda DO [address] [place] [address] [place] [address] PCP - General Internal Medicine 06/12/23 documented as of this encounter
--- OUTSIDE RECORDS SUMMARY | 2024-12-11 15:26 | XMS_ITS ---
Author Organization [facility] Address [address] [place] [id number] Care Team Providers Care Triage Clinician Name Role Phone Timothy Granda DO Primary Care Provider [phone] Hepatitis C Program Status:Paused (Paused) Start date:08/03/2022 Enrollment date:08/03/2022 Enrollment reason:HCV Continued Care and Services Coordination
--- OUTSIDE RECORDS SUMMARY | 2024-12-11 15:26 | XMS_ITS | Encounter Summary ---
Author Organization [facility] Address [address] [facility], [address] [place] [address] Care Team Providers Care Dog Races Manager Name Role Phone Unavailable Primary Care Provider Unavailabl e Reason for Visit * Reason Onset Date Comments IMAGING 09/05/2024 Encounter Details Date Type Department Care Team (Late st Contact Info) Description 09/05/2024 Telephone [facility] [address] [place] [address] Sharon Paulino MD [address] [place] [address] [address] [place] [address] IMAGING Social History Tobacco Use [...]
--- OUTSIDE RECORDS SUMMARY | 2024-12-11 15:26 | XMS_ITS | Encounter Summary ---
Author Organization [facility] Address [address] [facility], [address] [place] [address] Care Team Providers Care Specialized Developer Name Role Phone Unavailable Primary Care Provider Unavailabl e Reason for Visit * Reason Onset Date Comments Surgery Scheduling 10/10/2024 Encounter Details Date Type Department Care Team (Late st Contact Info) Description 10/10/2024 Telephone [facility] [address] [place], [place] [id number] Sharon Paulino MD [address] [place] [address] [address] [place] [address] Surgery Scheduling Social History Tobacco [...]
--- OUTSIDE RECORDS SUMMARY | 2024-12-11 15:26 | XMS_ITS | Clinical Summary ---
Author Organization [facility] Address [address] [place] [address] Phone Care Team Providers Care Automotive Machinist Name Role Phone Unavailable Primary Care Provider Unavailabl e Allergies No known active allergies Medications * This document contains information received from the source organization and may not represent a complete record from that organization. cloNIDine (CATAPRES) 0.1 mg Oral Tablet TAKE ONE TO TWO TABLETS BY MOUTH 2 TO 3 TIMES A DAY NEEDED FOR ANXIETY MAY CAUSE DROWSINESS 180 Tablet 1 11/07/19 25 Active ARIPiprazole (ABILIFY) 2 mg Oral Tablet Take 1 Tablet by mouth daily. 30 Tablet 5 11/22/19 25 Active DULoxetine (CYMBALTA) 60 mg Oral Capsule, Delayed Release(E.C.) TAKE 2 CAPSULES BY MOUTH ONCE DAILY 60 Capsule 12/11/19 25 Active DULoxetine (CYMBALTA) 60 mg Oral Capsule, Delayed Release(E.C.) TAKE 2 CAPSULES BY MOUTH ONCE DAILY 60 Capsule 3 05/06/19 25 025 Discontinued ARIPiprazole (ABILIFY) 2 mg Oral Tablet TAKE 1 TABLET BY MOUTH ONCE DAILY 30 Tablet 10/14/19 25 025 Discontinued(Re order) Active Problems No known active problems Medical [...] patient's age to complete this topic Insurance [place] [id number] MEDICARE [place] PART A AND B [employer]
--- OUTSIDE RECORDS SUMMARY | 2024-12-11 15:26 | XMS_ITS | Clinical Summary ---
Author Organization [facility] Address [address], [address] [place] [address] Care Team Providers Care Manufacturing Specialist Name Role Phone Unavailable Primary Care Provider [...] (ZANAFLEX) 4 MG tablet 03/20/2024 Active CREON 91042-431644 units CPEP delayed release capsule TAKE ONE [...] Daily Amount: 3 tablets Active Active Problems Problem Noted Date Diagnosed Date Left shoulder pain 11/05/2024 Encounters Date Type Department Care Team Description 12/08/2024 Telephone [facility], [place] [address] Sharon Paulino MD Surgery Scheduling 11/21/2024 Telephone [facility] Medicine [address] [address] Willa Lan RN Care Coordination (Nurse navigator) 11/20/2024 Telephone [facility] [address] [facility] [address] [place] [address] Sharon Paulino MD Surgery Scheduling ( SHDLR) 11/05/2024 Prep for Procedure [facility] [address] [address] Laisha Galvan MA 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); Chronic left shoulder pain 10/10/2024 Telephone [facility] [address] [place] [address] [place] [address] Sharon Paulino MD Surgery Scheduling 09/11/2024 3:00 PM EDT Office Visit [facility], [address] [address] Sharon Paulino MD 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
--- OUTSIDE RECORDS SUMMARY | 2024-12-11 15:27 | XMS_ITS | Encounter Summary ---
Author Organization [facility] Address [address] [facility], [address] [place] [address] Care Team Providers Care Memorandum Statement Clerk Name Role Phone Unavailable Primary Care Provider Unavailabl e Encounter Details Date Type Department Care Team (Latest Contact Info) Description 11/05/2024 Prep for Procedure [facility] [address] [place] [address] Center ConwayLaisha MA History of total replacement of left [...]
--- OUTSIDE RECORDS SUMMARY | 2024-12-11 15:27 | XMS_ITS | Clinical Summary ---
Author Organization Healthcare Address [address] [place] [address] Care Team Providers Care Natural Resources Extension Educator Name Role Phone Timothy Granda DO Primary Care Provider Allergies Active Allergy Reactions Criticality Noted Date [...] preservative free 02/14/2015 Influenza, trivalent, adjuvanted 12/22/2019 Savvify COVID-19 Vaccine (Blue Cap) 18+ 06/10/19 Moderna COVID-19 Vaccine (Re d Cap) 12+ years 07/18/2021,01/27/2021 Moderna COVID-19 Vaccine Bivalent 6months+ 01/25 PPD Skin Test (TB Skin Test) 09/04/2022 [employer] Covid-19 Vaccine 12y+ , Mahesh Protein, PF, [...] drink first t mini in the morning (EYE-LABORER CHEESEMAKING) to steady your nerves or to get [...] (AWV) 03/13/2023 03/13/2022 UKY-Depression Screening 03/27/2024 03/27/2023 [id number] Vaccine ( season) 2024 02/09/2023, 01/25/2022, 07/18/2021, [...] Antigen Negative Negative 08/02/2023 7:49 PM EDT [facility] Hepatitis A Antibody IgM Negative Negative 08/02/2023 7:49 PM EDT [facility] Hepatitis B Core Antibody IgM Negative Negative 08/02/2023 7:49 PM EDT [facility] Blood Venous blood specimen / Unknown Venipuncture / Unknown 08/02/2023 2:56 PM EDT 08/02/2023 3:22 PM EDT Narrative [facility] - 08/02/2023 7:49 PM EDT Hepatitis [...] ORDERABLES Final R esult Performing Organization Address City/State/[facility] Co de Phone Number [facility] [address] [place] [address] * Flexible Sigmoidoscopy (02/21/2023 10:25 AM EST) [...] Misti Page MD Adam Rooks, MD Proceduralist fixed income trading vice president Adama Montes CRNA CRNA Harris, Kristi A, RN Endo Nurse Butch Little MD Fellow Tete Whitmore Endo Composite Boat Builder Preprocedure A history and physical has been [...] of bowel preparation was evaluated using the Mcintyre Bowel Preparation Scale with scores of: left [...] of bowel preparation was evaluated using the Mcintyre Bowel Preparation Scale with scores of: right [...] Most Recently Relevant to Health Maintenance Insurance [facility] MEDICARE Member Subscriber Plan / Payer (Ef fective 2013-Present) Name:Farrah Atkinson Member ID:[id number] Relation to Subscriber:Self Name:Farrah Atkinson Subscriber ID:[id number] Payer ID:MEDICARE Group ID:Not on file Type:Medicare Address: [place] [phone] Advance Directives * Full Code (Latest Code [...] Patient has decision-making capacity? Yes Care Teams Natural Resources Extension Educator Relationship Specialty Start Date End Date Timothy Granda DO [address] [place] [address] PCP - General 05/25/23
== END 2024-12-11 23:59 | disposition home or self-care (01) ==
LOC: RT 15:24
PROVIDERS: PCP Family Medicine; Visit Provider Family Medicine
DX: Z01.810 Encounter for preprocedural cardiovascular examination (principal); I35.2 Nonrheumatic aortic (valve) stenosis with insufficiency
CPT/HCPCS: 93306

== ENCOUNTER 2024-12-12 10:43 | Outpatient (CLI) | payer MEDICARE, OTHER, SELFPAY ==
--- OUTSIDE RECORDS SUMMARY | 2024-04-17 07:45 | XMS_ITS ---
Author Organization [facility] Address [address] [place] [address] Care Team Providers Care Security Business Analyst Name Role Phone Timothy Granda DO Primary Care Provider Tha Chaudhry Unavailable [phone] Jesus Rose Unavailable REASON FOR VISIT NEW PATIENT Encounters Encounter Location Date Provider Diagnosis [facility] [address] [place] [address] 04/17/2024 Jesus Rose Plan Of Treatment No Information Progress Notes * KRISTACIERRA MonroeMaryellenOB:[birth year] (74 yo F)Acc No.[id number]:04/17/2024 Progress Notes Patient: Farrah SEAY Provider: Leelee Rose :1950 A ge:73 Y S ex:Female Date:04/17/2024 [facility] Pcp:Timothy Granda DO Subjective: * Chief Complaints: * 1 . NEW PATIENT. * Medical History: Objective: * Vitals: Assessment: Plan: * Treatment: * * Electronic signature of Reza Rose APRN on 12/15/2024 at 10:47 AM EDT Sign off status: Pending * Provider: Leelee Rose Date: 0 04/17/2024 Generated for Brisa conway/Sahra/Angela on: 0 12/15/2024 10:47 AM EDT
--- OUTSIDE RECORDS SUMMARY | 2024-05-13 09:30 | XMS_ITS ---
Author Organization [facility] Address [address] [place] [address] Care Team Providers Care Drapery Seamstress Name Role Phone Timothy Granda DO Primary Care Provider Tha Chaudhry Unavailable [phone] REASON FOR VISIT NEW PATIENT Encounters Encounter Location Date Provider Diagnosis [facility] [address] [place] [address] 05/13/2024 Tha Krishnamurthy Plan Of Treatment No Information Progress Notes * Giselle ATKINSONOB:[birth year] (74 yo F)Acc No.[id number]:05/13/2024 Progress Notes Patient: Farrah SEAY Provider: Sarabjit Krishnamurthy MD :1950 A ge:73 Y S ex:Female Date:05/13/2024 [facility] Pcp:Timothy Granda DO Subjective: * Chief Complaints: * 1 . NEW PATIENT. * Medical History: Objective: * Vitals: Assessment: Plan: * Treatment: * * Electronic signature of Didier Krishnamurthy MD on 12/15/2024 at 10:47 AM EDT Sign off status: Pending * Provider: Sarabjit Krishnamurthy MD Date: 0 05/13/2024 Generated for Brisa conway/Sahra/eTnamsmitting on: 0 12/15/2024 10:47 AM EDT
--- OUTSIDE RECORDS SUMMARY | 2024-06-17 09:30 | XMS_ITS ---
Author Organization [facility] Address [address] [place] [address] Care Team Providers Care Linen Grader Name Role Phone Timothy Granda DO Primary Care Provider Tha Chaudhry [facility] [phone] REASON FOR VISIT NEW PATIENT Encounters Encounter Location Date Provider Diagnosis [facility] [address] [place] [address] 06/17/2024 Tha Krishnamurthy Plan Of Treatment No Information Progress Notes * Giselle ATKINSONOB:[birth year] (74 yo F)Acc No.[id number]:06/17/2024 Progress Notes Patient: Farrah SEAY Provider: Sarabjit Krishnamurthy MD :1950 A ge:73 Y S ex:Female Date:06/17/2024 [facility] Pcp:Timothy Granda DO Subjective: * Chief Complaints: * 1 . NEW PATIENT. * Medical History: Objective: * Vitals: Assessment: Plan: * Treatment: * * Electronic signature of Didier Krishnamurthy MD on 12/15/2024 at 10:48 AM EDT Sign off status: Pending * Provider: Sarabjit Krishnamurthy MD Date: 06/17/2024 Generated for Brisa conway/Sahra/eTnamsmitting on: 0 12/15/2024 10:48 AM EDT
[2024-12-12 19:25] LABS: Hematocrit 40.5 % (37.0-47.0); Hemoglobin 13.0 g/dL (12.2-16.2); Immature Granulocytes % 0.3 %; Mean Corpuscular HGB Conc 32.1 g/dL (31.8-35.4); Mean Corpuscular Hemoglobin 29.6 pg (27.0-31.2); Mean Corpuscular Volume 92.3 fl (81-99); Nucleated Red Blood Cells % 0 %; Platelet Count 417 K/mm3 (142-424); Red Blood Count 4.39 M/mm3 (4.20-5.40); Red Cell Distribution Width-SD 48.6 fL; White Blood Count 9.1 K/mm3 (4.8-10.8)
[2024-12-12 19:48] LABS: Alanine Aminotransferase 28 U/L (12-78); Albumin Level 4.6 g/dl (3.5-5.0); Albumin/Globulin Ratio 1.6 (1.1-1.8); Alkaline Phosphatase 112 U/L (38-126); Anion Gap 15.7 mEq/L (5-15); Aspartate Amino Transferase 33 U/L (14-36); Bilirubin,Total 0.5 mg/dl (0.2-1.3); Blood Urea Nitrogen 26 mg/dl (7-17); Calcium 9.5 mg/dl (8.4-10.2); Carbon Dioxide 22 mmol/L (22.0-30.0); Chloride 104 mmol/L (98-107); Creatinine,Serum 1.60 mg/dl (0.52-1.04); Estimated Glomerular Filt Rate 32 ml/min (>60); GFR (African American) 38 ML/MIN (>60); Globulin 2.9 g/dL (1.3-3.2); Glucose 86 mg/dl (74-100); Potassium 3.7 mmoL/L (3.5-5.1); Sodium 138 mmol/L (136-145); Total Protein,Serum 7.5 g/dl (6.3-8.2)
--- OUTSIDE RECORDS SUMMARY | 2024-12-15 10:47 | XMS_ITS | Encounter Summary ---
Author Organization [employer] ([place], [place], [place], [place]) Address [address] [place] [address] Care Team Providers Care Electric Mule Driver Name Role Phone [facility], Provider Not In The System Primary Care Provider Unavailable Encounter Details Date Type Department Care Team (Late st Contact Info) Description 04/28/2019 Transcribed Document [facility] Family Medicine Count includes the [facility] [place] [address] ProviderJean-Claude MD [address] [place], [place] [id number] Social History Tobacco Use Types Packs/Day Years Used Date Smoking Tobacco: Never Assessed Comments Unknown Sex and Gender Information Value Date Recorded Sex Assigned at Not on file Legal Sex Female 5:42 PM CDT Gender Identity Not on file Sexual Orientation Not on file documented as of this encounter Miscellaneous Notes * Cerner Conversion Note - Historical ProviderMD - 04/28/2019 7:06 AM SNAP ATTACHER Pre Procedure Adult Entered On: 04/28/2019 7:12 EST Performed On: 04/28/2019 7:06 EST by ISAMAR MORRISON RN Height and Weight, Clinical Dosing Height Source : Stated Height Entry Format : [place] Height, Feet : 5 ft(Converted to: 152 cm, 60 Inch) Height, Inches : 2 Inch(Converted to: 0 ft 2 Inch, 5.08 cm) Clinical Height : 157.48 cm Weight Source : Standing scale Weight Entry Format : [place] Clinical Dosing Weight : 85 kg Weight, Pounds : 187 lb Body Surface Area (BSA) : 1.86 m2 Body Mass Index : 34.3 kg/m2 (HI) Adel Body Weight : 50 kg ISAMAR MORRISON [...] ISAMAR MORRISON RN - 04/28/2019 7:06 EST [place] Suicide Severity Rating Scale (C-SSRS) CSSRS Past [...] Obtained From : Patient Primary Language : Samoan Preferred Communication Mode : Verbal Communication Barrier [...] Scale Risk Level : 0-24 Low Risk [place] Fall Interventions : Bed in low position, [...] on filedocumented in this encounter Care Teams Electric Mule Driver Relationship Specialty Start Date End Date Leslee, Provider Not In The System, [place] [address] PCP - General 04/16/23 documented as of this encounter
--- OUTSIDE RECORDS SUMMARY | 2024-12-15 10:47 | XMS_ITS | Encounter Summary ---
Author Organization [facility] Address [address], [address] [place] [address] Care Team Providers Care International Trade Analyst Name Role Phone Unavailable Primary Care Provider Unavailabl e Reason for Visit * Reason Onset Date Comments Surgery Scheduling 12/08/2024 Encounter Details Date Type Department Care Team (Late st Contact Info) Description 12/08/2024 Telephone [facility], [place] [phone] Sharon Paulino MD [address] [place] [address] [address] [place] [address] Surgery Scheduling Social History Tobacco [...]
--- OUTSIDE RECORDS SUMMARY | 2024-12-15 10:47 | XMS_ITS ---
Author Organization [facility] Address [address] [place] [id number] Care Team Providers Care Performance Engineer Name Role Phone Timothy Granda DO Primary Care Provider [phone] Hepatitis C Program Status:Paused (Paused) Start date:08/03/2022 Enrollment date:08/03/2022 Enrollment reason:HCV Continued Care and Services Coordination
--- OUTSIDE RECORDS SUMMARY | 2024-12-15 10:47 | XMS_ITS | Encounter Summary ---
Author Organization [employer] ([place], [place], [place], [place]) Address [address] [place] [address] Care Team Providers Care Ethylbenzene Converter Helper Name Role Phone [facility], Provider Not In The System Primary Care Provider Unavailable Encounter Details Date Type Department Care Team (Late st Contact Info) Description 04/28/2019 Transcribed Document [facility] [place] [address] ProviderJean-Claude MD [facility] [place] [id number] Social History Tobacco Use Types Packs/Day Years Used Date Smoking Tobacco: Never Assessed Comments Unknown Sex and Gender Information Value Date Recorded Sex Assigned at Not on file Legal Sex Female 5:42 PM CDT Gender Identity Not on file Sexual Orientation Not on file documented as of this encounter Miscellaneous Notes * Cerner Conversion Note - Historical ProviderMD - 04/28/2019 8:29 AM DISHWASHER BUSSER Pain Assessment Entered On: 04/28/2019 9:06 EST Performed On: 04/28/2019 9:18 EST by Eduarda Patel Rn Patient Care Bedside Intervention Information: fentaNYL Performed by Eduarda Ptael Rn Patient Care Bedside on 04/28/2019 08:48:00 EST fentaNYL,50mcg IV Push,Peripheral Line 1,Pain (Moderate 4-6) Pain Assessment Pain Assessment : Follow-up assessment Pain Improved by Intervention : No Eduarda Patel Rn Patient Care Bedside - 04/28/2019 9:06 EST documented in this encounter Plan of Treatment Not on file documented as of this encounter Visit Diagnoses Not on filedocumented in this encounter Care Teams Ethylbenzene Converter Helper Relationship Specialty Start Date End Date Leslee, Provider Not In The System, [place] [address] PCP - General 04/16/23 documented as of this encounter
--- OUTSIDE RECORDS SUMMARY | 2024-12-15 10:47 | XMS_ITS | Clinical Summary ---
Author Organization [facility] Address [address], [address] [place] [address] Care Team Providers Care Ensemble Member Name Role Phone Unavailable Primary Care Provider [...] (ZANAFLEX) 4 MG tablet 03/20/2024 Active CREON [id number] units CPEP delayed release capsule TAKE ONE [...] Type Department Care Team Description 12/08/2024 Telephone [facility] Center, [place] [address] Sharon Paulino MD Surgery Scheduling 11/21/2024 Telephone [facility] Orthopedic [facility] Sports Medicine [address] [address] Willa Lan RN Care Coordination (Nurse navigator) 11/20/2024 Telephone [facility] [address] [facility] [address] [place] [phone] Sharon Paulino MD Surgery Scheduling ( SHDLR) 11/05/2024 Prep for Procedure [facility] [address] [address] Laisha Galvan MA 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
--- OUTSIDE RECORDS SUMMARY | 2024-12-15 10:47 | XMS_ITS | Patient Health Record ---
Author Organization [facility] Address [address] [place] [address] Care Team Providers Care All Source Collection Manager Name Role Phone Timothy Granda DO Primary Care Provider Tha Chaudhry Unavailable [phone] Jesus Rose Unavailable Unavailable Reason For Referral No Information Encounters Encounter Location Date Provider Diagnosis [facility] [address] [place] [address] 04/01/2024 Tha Krishnamurthy [facility] [address] [place] [address] 05/13/2024 Tha Krishnamurthy [facility] [address] [place] [address] 06/17/2024 Tha Krishnamurthy Plan Of Treatment No Information Insurance Providers Payer Name Payer Address Payer Phone Subscriber Number Group Number Insured Name Patient Relationship to Insured Coverage Start Date Coverage End Date Medicare CGS Administrators [address] [phone] Farrah Anna Self - patient is the insured
--- OUTSIDE RECORDS SUMMARY | 2024-12-15 10:47 | XMS_ITS | Encounter Summary ---
Author Organization [facility] Address [address] [place] [address] Care Team Providers Care Kitchen Designer Name Role Phone Timothy Granda DO Primary Care Provider Sadia Campo MACHINE STEMMER Unavailable Unavailable Encounter Details Date Type Department Care Team (Late st Contact Info) Description 07/24/2023 Lab Requisition [facility] [address] [place] [address] Miky Coleman MD [address] [place] [address] Encounter for general adult medical [...] place to sleep or slept in a penitentiary (including now)? Patient refused 07/23/2023 CAGE ASSESSMENT [...] drink first t mini in the morning (EYE-ENVIRONMENTAL PROTECTION FORESTER) to steady your nerves or to get [...] at day 1 07/25/2023 12:01 AM EDT [facility] Swab (Nares and Renata Rectal) 07/23/2023 9:00 AM EDT 07/24/2023 4:19 AM EDT us Miky Coleman MD LAB MICROBIOLOGY - GEN ERAL ORDERABLES Final Result [facility] [address] [place] [address] documented in this encounter Visit Diagnoses Diagnosis [...] documented as of this encounter Care Teams Kitchen Designer Relationship Specialty Start Date End Date Timothy Granda DO [address] [place] [address] PCP - General 05/25/23 Sadia Campo, [place] [address] Screening Tech Preload Supervisor 08/03/22 06/21/24 documented as of this encounter
--- OUTSIDE RECORDS SUMMARY | 2024-12-15 10:47 | XMS_ITS | Encounter Summary ---
Author Organization [facility] Address [address] [place] [id number] Care Team Providers Care Manager Program Name Role Phone GabrielTimothy armenta Primary Care Provider [phone] Reason for Visit * Reason Comments Med Refill Encounter Details Date Type Department Care Team (Late st Contact Info) Description 12/22/2021 Refill [facility] [address] [place] [address] Connor Nunez MD [address] [place] [address] Chronic arthritis associated with viral [...] documented as of this encounter Care Teams Manager Program Relationship Specialty Start Date End Date Timothy Granda DO [address] [place] [address] [place]M [address] PCP - General Internal Medicine 06/12/23 documented as of this encounter
--- OUTSIDE RECORDS SUMMARY | 2024-12-15 10:47 | XMS_ITS | Encounter Summary ---
Author Organization [employer] ([place], [place], [place], [place]) Address [address] [place] [address] Care Team Providers Care Studio Set Up Worker Name Role Phone [facility], Provider Not In The System Primary Care Provider Unavailable Encounter Details Date Type Department Care Team (Late st Contact Info) Description 04/28/2019 Transcribed Document [facility] [place] [address] ProviderJean-Claude MD [address] [place], [place] [phone] Social History Tobacco Use Types Packs/Day Years Used Date Smoking Tobacco: Never Assessed Comments Unknown Sex and Gender Information Value Date Recorded Sex Assigned at Not on file Legal Sex Female 5:42 PM CDT Gender Identity Not on file Sexual Orientation Not on file documented as of this encounter Miscellaneous Notes * Cerner Conversion Note - Historical ProviderMD - 04/28/2019 8:05 AM CATTLE INSPECTOR ADI Main OR IntraOp Summary Primary Physician: MADISON OSPINA MD-ORT Finalized Date/Time: 04/28/19 08:39:15 Pt. Name: FARRAH ATKINSON D.O.B./Sex: 1950 Female Med Rec #: [id number] Physician: MADISON OSPINA MD-ORT Financial #: [id number] Pt. Type: O Room/Bed: Admit/Disch: 04/28/19 05:30:00 - Institution: [facility] Intra Case Attendance Entry 1 Entry 2 Entry 3 Case Attendee MADISON OSPINA MD-ORT WICKER, KAREN KIM, ARIA WATERS RN Role Performed Surgeon/Proceduralist, COMPARISON SHOPPER/Nurse Sharepoint Trainer Oyster Floater, First First Time In 04/28/19 07:39:00 04/28/19 [...] [facility] IntraOp Case Attendance Audit 04/28/19 08:34:51 Template Maker: LONGGA Modifier: LONGGA 1 <+> Time Out 1 <*> Procedure Knee Arthroscopy 2 <+> Time Out 2 <*> Procedure Knee Arthroscopy 3 <+> Time Out 3 <*> Procedure Knee Arthroscopy 4 <+> Time Out 4 <*> Procedure Knee Arthroscopy 5 <+> Time Out 5 <*> Procedure Knee Arthroscopy 04/28/19 08:07:14 Template Maker: LONGGA Modifier: LONGGA <+> 1 Time In [...] [facility] IntraOp Case Times Audit 04/28/19 08:34:50 Template Maker: LONGGA Modifier: LONGGA <+> 1 Out Room Time <+> 1 Stop Time 04/28/19 08:31:56 Template Maker: LONGGA Modifier: LONGGA <+> 1 Stop Time [...] IntraOp Departure from OR Audit 04/28/19 08:32:27 Template Maker: EMBER Modifier: LONGGA 1 <*> Patient Transport [...] RN 04/28/19 08:15:47 [facility] IntraOp General Case Pharmacy Retail Support Specialist 1 Case Information OR OR 05 SJE Case Level 1 Room Verified Yes Wound Class I - Clean Specialty SN Orthopedic Anesthesia Type General ASA Class 3 Diagnosis Preop Diagnosis PATELLAR CHONDROMALACIA RIGHT KNEE Postop Same As Preop No Postop Diagnosis DICTATED BY Mary Last Modified By: ARIA MELCHOR RN 04/28/19 08:15:39 [facility] IntraOp General Case Data Audit 04/28/19 08:15:39 Template Maker: EMBER Modifier: LONGGA <+> 1 ASA Class [...] Entry 1 Medication/Irrigant epinephrine 30mg/30ml vial - [id number] Route of 3ML/3000ML OF NS Administration IRRIGATION [...] [facility] IntraOp Patient Positioning Audit 04/28/19 08:17:49 Template Maker: LONGGA Modifier: LONGGA 1 <*> Procedure Knee [...] [facility] IntraOp Surgical Procedures Audit 04/28/19 08:31:50 Template Maker: LONGGA Modifier: LONGGA 1 <*> Procedure Knee Arthroscopy 1 <+> Stop 04/28/19 08:27:35 Template Maker: LONGGA Modifier: LONGGA 1 <*> Procedure Knee Arthroscopy 1 <*> Additional Procedure Description RIGHT KNEE ARTHROSCOPY FOR RETROPATELLAR CHONDROPLASTY AND PARTIAL MENISCECTOMY 04/28/19 08:21:54 Template Maker: LONGGA Modifier: LONGGA 1 <*> Procedure Knee Arthroscopy 1 <*> Additional Procedure Description LEFT KNEE ARTHROSCOPY FOR RETROPATELLAR CHONDROPLASTY AND PARTIAL MENISCECTOMY [facility] IntraOp Temp Regulation Devices Entry 1 Temp Regulation Temperature Forced Air Warming Regulation Device device Temperature 4765 Regulation Device Serial/Unit Number Temperature Upper body Regulation Site Temperature FARRAH MANE, COMPARISON SHOPPER Regulation Device Applied by Last Modified By: [...] 08:31:38 [facility] IntraOp Tourniquet Audit 04/28/19 08:31:38 Template Maker: EMBER Modifier: EMBER <+> 1 Stop Time Case Comments <None> Finalized By: ARIA MELCHOR, RN Document Signatures Signed By: ARIA MELCHOR RN 04/28/19 08:39 Electronically signed by May [facility] Conversion Associate Professor Of Education Cerner at 07/23/2022 4:21 PM CDT documented in this encounter Plan of Treatment Not on file documented as of this encounter Visit Diagnoses Not on filedocumented in this encounter Care Teams Studio Set Up Worker Relationship Specialty Start Date End Date Leslee, Provider Not In The System, [place] [address] PCP - General 04/16/23 documented as of this encounter
--- OUTSIDE RECORDS SUMMARY | 2024-12-15 10:47 | XMS_ITS | Clinical Summary ---
Author Organization [facility] Address [address] [place] [address] Care Team Providers Care Ethylene Compressor Operator Name Role Phone KaleeTimothy Primary Care Provider [phone] Allergies Active Allergy Reactions Criticality Noted Date [...] Patient may need Pain Management referral. Discontinue [place] and use oxycodone 10mg q6h prn. Discussed with patient will not increase this medicine exterminator termite prescription opiate use 03/13/2022 Chronic arthritis associated [...] this topic Medical Devices Implanted Type Area Waiter/Waitress Counter Device Identifier Shelf Expiration Date Model / Serial / Lot Cmt Bone Simplex/P Full Dose /Pk - [id number] Implanted:Qty : 1 on 07/18/2018 by Bautista Luis MD at [facility] Implant Right: Shoulder TRACY RUBEN 09/29/2020 [id number] / / [id number] Stem Hum Univers [place] 6x60mm - [id number] Implanted:Qty : 1 on 07/18/2018 by Bautista Luis MD at [facility] Implant Right: Shoulder ARTHREX 08/30/2022 [id number] / / [id number] Alberto Vaultlock Sm - [id number] Implanted:Qty : 1 on 07/18/2018 by Bautista Luis MD at [facility] Implant Right: Shoulder ARTHREX 12/30/2022 [id number] / / [id number] Hd Hum Univers2 Cocr 05s52xj - [id number] Implanted:Qty : 1 on 07/18/2018 by Bautista Luis MD at [facility] Implant Right: Shoulder ARTHREX 03/01/2022 [id number] / / [id number] Sut Tw 2/0 38in Wht/Blk - [id number] Implanted:Qty : 3 on 07/18/2018 by Bautista Luis MD at [facility] Implant Right: Shoulder ARTHREX [id number] / / Totl Arth Shldr S3 - [id number] Implanted:Qty : 1 on 07/18/2018 by Bautista Luis MD at [facility] Implant Right: Shoulder ARTHREX CAPTOTLSHLD [id number] / / Procedures Procedure Name Priority Date/Time [...] 5:07 AM EST Performed at: 01 - [facility] [address] [place], [place] [id number] Bone Density Technician: Carlos Rod PhD, Phone: [phone] Connor Nunez MD LAB BLOOD ORDERABLES Fin al Result Performing Organization Address [facility] Co de Phone Number [facility] ([facility]) [address] [place] [address], [facility] [address] [place] [address], * Hepatitis C Genotype (12/15/2021 11:55 AM EDT) [facility] Signature Hepatitis C Genotype Comment [facility] Comment: Specimen has insufficient hepatitis C virus RNA to obtain genotyping results. This genotyping assay should only be used for known HCV positive patients with HCV RNA levels above 1000 IU/mL. Please note Comment [facility] Comment: This test was developed and its performance characteristics determined by [facility]. It has not been cleared or approved by the U.S. Food and Drug Administration. The FDA has determined that such clearance or approval is not necessary. This test is used for clinical purposes. It should not be regarded as investigational or for research. Blood 12/15/2021 11:5 5 AM EDT 12/16/2021 Narrative [facility] ([facility] - 12/21/2021 8:08 PM EDT Performed at: [address] [place] [id number] Bone Density Technician: Genna Davenport MD, Phone: [phone] Patient Fasting: Y Connor Nunez MD LAB BLOOD ORDERABLES Fin al Result Performing Organization Address [facility] Co de Phone Number [facility] [address] [place] [address], [facility] [address] [place], [place] [id number], * SCANNED - MAMMO (08/23/2021) Anatomical Region Laterality Modality Other Connor Nunez MD CHART REVIEW TABS Fin al Result * Hemoglobin A1c (07/10/2018 3:05 PM EDT) Hemoglobin A1C 5.10 4.80 - 5.60 % 07/10/2018 3:58 PM EDT [facility] Blood Venipuncture / Unknown 07/10/2018 3:05 PM EDT 07/10/2018 3:36 PM EDT Narrative [facility] - 07/10/2018 3:58 PM EDT Hemoglobin A1C Ranges: Increased Risk for Diabetes 5.7% to 6.4% Diabetes >= 6.5% Diabetic Goal < 7.0% Bautista Luis MD LAB BLOOD ORDERABLES Fin al Result [facility]
[address] [place] [address], from Last 3 Months or Most Recently Relevant to Health Maintenance Insurance MEDICARE A & B Member Subscriber Plan / Payer (Ef fective 2013-Present) Name:Farrah Atkinson Member ID:[id number] Relation to Subscriber:Self Name:Farrah Atkinson Subscriber ID:[id number] Payer ID:[id number] Group ID:Not on file Type:Not on file Address: [facility] [id number] [place] [address] Advance Directives * CPR (Attempt to Resuscitate) (Latest Code Status on File) Date Activated Date Inactivated Comments 07/18/2018 6:35 PM 07/19/2018 6:14 PM Question Answer Comments Code Status (Patient has no pulse and is not breathing): CPR (Attempt to Resuscitate) Medical Interventions (Patie nt has pulse or is breathing): Full Level Of Support Discussed With: Patient Care Teams Ethylene Compressor Operator Relationship Specialty Start Date End Date Timothy Granda DO [address] [place] [address] PCP - General Internal Medicine 06/12/23
--- OUTSIDE RECORDS SUMMARY | 2024-12-15 10:48 | XMS_ITS | Encounter Summary ---
Author Organization [employer] ([place], [place], [place], [place]) Address [address] [place] [address] Care Team Providers Care Security And Privacy Consultant Name Role Phone [facility], Provider Not In The System Primary Care Provider Unavailable Encounter Details Date Type Department Care Team (Late st Contact Info) Description 04/28/2019 Transcribed Document [facility] Family Medicine [address] [place] [address] ProviderJean-Claude MD [address], [place] [id number] Social History Tobacco Use Types Packs/Day Years Used Date Smoking Tobacco: Never Assessed Comments Unknown Sex and Gender Information Value Date Recorded Sex Assigned at Not on file Legal Sex Female 5:42 PM CDT Gender Identity Not on file Sexual Orientation Not on file documented as of this encounter Miscellaneous Notes * Cerner Conversion Note - Historical ProviderMD - 04/28/2019 8:05 AM TOW MATE ADI Main OR PreOp Summary Primary Physician: MADISON OSPINA MD-ORT Finalized Date/Time: 04/28/19 09:32:12 Pt. Name: MOISE ATKINSON/Sex: 1950 Female Med Rec #: [id number] Physician: MADISON OSPINA MD-ORT Financial #: [id number] Pt. Type: O Room/Bed: Admit/Disch: 04/28/19 05:30:00 - Institution: [facility] PreOp Case Times Entry 1 In Preop 04/28/19 05:40:00 Ready for Holding n/a Room Patient Ready for 04/28/19 07:15:00 Surgery Patient Out of Preop 04/28/19 07:36:00 Patient Out of n/a Holding Room Last Modified By: ISAMAR MORRISON, SPENCER 04/28/19 09:32:08 ADI PreOp Case Times Audit 04/28/19 09:32:08 Construction Code Administrator: FLOYDSF Modifier: FLOYDSF <+> 1 Patient Out of Preop Finalized By: ISAMAR MORRISON, RN Document Signatures Signed By: ISAMAR MORRISON RN 04/28/19 09:32 Electronically signed by May [facility] Conversion Art Display Maker Cerner at 07/23/2022 4:31 PM CDT documented in this encounter Plan of Treatment Not on file documented as of this encounter Visit Diagnoses Not on filedocumented in this encounter Care Teams Security And Privacy Consultant Relationship Specialty Start Date End Date [facility], Provider Not In The System, [place] [address] PCP - General 04/16/23 documented as of this encounter
--- OUTSIDE RECORDS SUMMARY | 2024-12-15 10:48 | XMS_ITS | Encounter Summary ---
Author Organization [facility] Address [address] [facility], [address] [place] [address] Care Team Providers Care Insulation Applicator Name Role Phone Unavailable Primary Care Provider Unavailabl e Reason for Visit * Reason Onset Date Comments IMAGING 09/05/2024 Encounter Details Date Type Department Care Team (Late st Contact Info) Description 09/05/[address] [facility] [address] [place] [address] Sharon Paulino MD [address] [place] [address] [address] [place] [address] IMAGING Social History Tobacco Use [...]
--- OUTSIDE RECORDS SUMMARY | 2024-12-15 10:48 | XMS_ITS | Encounter Summary ---
Author Organization [employer] ([place], [place], [place], [place]) Address [address] [place] [address] Care Team Providers Care Front Desk Clerk Name Role Phone [facility], Provider Not In The System Primary Care Provider Unavailable Encounter Details Date Type Department Care Team (Late st Contact Info) Description 04/28/2019 Transcribed Document [facility] Family Medicine [address] [place] [address] ProviderJean-Claude MD [address] [place], [place] [id number] Social History Tobacco Use Types Packs/Day Years Used Date Smoking Tobacco: Never Assessed Comments Unknown Sex and Gender Information Value Date Recorded Sex Assigned at Not on file Legal Sex Female 5:42 PM CDT Gender Identity Not on file Sexual Orientation Not on file documented as of this encounter Miscellaneous Notes * Cerner Conversion Note - Historical ProviderMD - 04/28/2019 8:29 AM POT PUNCHER Pain Assessment Entered On: 04/28/2019 9:28 EST [...] Patient Care Bedside - 04/28/2019 9:28 EST Electronically signed by Leslee Olvera Conversion Director Of Collections And Archives Cerner at 07/23/2022 4:31 PM CDT documented in this encounter Plan of Treatment Not on file documented as of this encounter Visit Diagnoses Not on filedocumented in this encounter Care Teams Front Desk Clerk Relationship Specialty Start Date End Date Sjh, Provider Not In The System, [place] [address] PCP - General 04/16/23 documented as of this encounter
--- OUTSIDE RECORDS SUMMARY | 2024-12-15 10:48 | XMS_ITS | Encounter Summary ---
Author Organization Healthcare Address [address] [place] [address] Care Team Providers Care Surveillance Observer Name Role Phone Chandra Leahy MD Primary Care Provider + [phone] Timothy Granda DO Primary Care Provider [phone] Sadia Campo COTTON STRIPPER Unavailable Unavailable Encounter Details Date Type Department Care Team (Late st Contact Info) Description 08/14/2022 Lab Requisition [facility] [address] [place] [address] Dilip Lloyd MD [address] [address] Encounter for general adult medical [...] drink first t mini in the morning (EYE-COLORED LEATHER SETTER) to steady your nerves or to get [...] LAB MICROBIOLOGY - GENERAL ORDERABLES Final Result [facility] [address] [place] [address] documented in this encounter Visit Diagnoses Diagnosis Encounter for general adult medical examination without abnormal findings documented in this encounter Additional Health Concerns Infection Onset Date Last Indicated Resolved Time COVID-19 Rule-Out 07/22/2023 07/22/2023 07/22/2023 12:14 PM EDT C. difficile Rule-Out 07/26/2023 08/01/20232023 1:07 AM EDT Gastrointestinal Rule-Out 08/02/2023 08/01/2023 3:00 AM EDT documented as of this encounter Care Teams Surveillance Observer Relationship Specialty Start Date End Date Chandra Leahy MD [address] [place] [address] PCP - General 08/02/22 05/24/23 Timothy Granda DO [address] [place] [address] PCP - General 05/25/23 Sadia Campo, [place] [address] Metallurgical Inspector Assistant Branch Operations Manager 08/03/22 06/21/24 documented as of this encounter
--- OUTSIDE RECORDS SUMMARY | 2024-12-15 10:48 | XMS_ITS | Encounter Summary ---
Author Organization [facility] Address [address] [facility], [address] [place] [address] Care Team Providers Care Tractor Trailer Driver Name Role Phone Unavailable Primary Care Provider Unavailabl e Encounter Details Date Type Department Care Team (Latest Contact Info) Description 11/05/2024 Prep for Procedure [facility] Orthopedic and Sports Medicine [address] [place] [address] [place] History of total replacement of left shoulder [...]
--- OUTSIDE RECORDS SUMMARY | 2024-12-15 10:48 | XMS_ITS | Encounter Summary ---
Author Organization [employer] ([place], [place], [place], [place]) Address [address] [place] [address] Care Team Providers Care Warehouser Name Role Phone [facility], Provider Not In The System Primary Care Provider Unavailable Encounter Details Date Type Department Care Team (Late st Contact Info) Description 04/28/2019 Transcribed Document [facility] Family Medicine [address] [place] [address] ProviderJean-Claude MD [address] [place], [place] [id number] Social History Tobacco Use Types Packs/Day Years Used Date Smoking Tobacco: Never Assessed Comments Unknown Sex and Gender Information Value Date Recorded Sex Assigned at Not on file Legal Sex Female 5:42 PM CDT Gender Identity Not on file Sexual Orientation Not on file documented as of this encounter Miscellaneous Notes * Cerner Conversion Note - Historical ProviderMD - 04/28/2019 10:01 AM ACCESSORIES REPAIRER [place] [id number] MOISE PANDEY :1950 Visit Time:04/28/2019 What to do next Your Diagnosis Pain in unspecified knee, Pain in unspecified knee Instructions From Your Care Team No driving or legal decision for 24 hours after anesthesia. may advance diet as tolerated. May take Desert Center 10-325mg 1 tablet by mouth every 4-6 [...] Comments Appointment has been made Where: [address] [facility] [address] [place] [address]- Medications What How Much When Instructions Next [...] activities are safe for you. ??? Take dpgq-lwc-grfhtpf and prescription medicines only as told by [...] 06/25/2001 Document Revised: 11/02/2017 Document Reviewed: 11/02/2017 Event 38 [employer] Patient Education ?? 2019 Event 38 [employer] Knee Arthroscopy, Care After Refer to [...] activities are safe for you. ??? Perform ppgqx-so-jrqxbk exercises only as directed by your health [...] 10/06/2005 Document Revised: 08/18/2016 Document Reviewed: 03/15/2015 Event 38 [employer] Patient Education ?? 2018 [employer]. acetaminophen and hydrocodone (a SEET a MIN oh fen and ladonna droe KOE done) Hycet, Lorcet, Desert [place], Verdrocet, Vicodin, Xodol, Zamicet What is the [...] may report side effects to FDA at 9-463-GAG-3222. What other drugs will affect acetaminophen and [...] affect acetaminophen and hydrocodone, including prescription and shtm-okl-ngkcdto medicines, vitamins, and herbal products. Not all [...] to ensure that the information provided by [employer]. ('[employer]') is accurate, up-to-date, and complete, but no guarantee is made to that effect. Drug information contained herein may be time sensitive. [employer] information has been compiled for use by healthcare practitioners and consumers in the [place] and therefore [employer] does not warrant that uses outside of the [place] are appropriate, unless specifically indicated otherwise. [employer] A[employer] drug information does not endorse drugs, diagnose patients or recommend therapy. [email or web address] drug information is an informational resource designed [...] effective or appropriate for any given patient. [employer] does not assume any responsibility for any aspect of healthcare administered with the aid of information [employer] provides. The information contained herein is not intended to cover all possible uses, directions, precautions, warnings, drug interactions, allergic reactions, or adverse effects. If you have questions about the drugs you are taking, check with your doctor, nurse or pharmacist. Copyright 5568-2021 [employer]. Version: 15.02. Revision Date: 02/04/2018. Emergency Awareness [...] Assistance with quitting is available by contacting 4-126-NMDI-NOW. This is a free resource providing counseling, [...] was given the opportunity to ask questions. Patient/Rim Turning Machine Operator Name: Patient/Rim Turning Machine Operator Signature: Relationship to Patient: Clinician/Hospital Rim Turning Machine Operator Signature: Date: documented in this encounter Plan of Treatment Not on file documented as of this encounter Visit Diagnoses Not on filedocumented in this encounter Care Teams Warehouser Relationship Specialty Start Date End Date Deejay, Provider Not In The System, [place] [address] PCP - General 04/16/23 documented as of this encounter
--- OUTSIDE RECORDS SUMMARY | 2024-12-15 10:48 | XMS_ITS | Encounter Summary ---
Author Organization [facility] Address [address] [facility], [address] [place] [address] Care Team Providers Care Engine Dispatcher Name Role Phone Unavailable Primary Care Provider Unavailabl e Reason for Visit * Reason Onset Date Comments Surgery Scheduling 11/20/2024 LT SHDLR Encounter Details Date Type Department Care Team (Late st Contact Info) Description 11/20/2024 Telephone [facility] [address] [facility] [place] [phone] [place] [address] [place] [address] [address] [place] [address] Surgery Scheduling (LT SHDLR) Social [...]
--- OUTSIDE RECORDS SUMMARY | 2024-12-15 10:48 | XMS_ITS | Clinical Summary ---
Author Organization [facility] Address [address] [place] [address] Phone Care Team Providers Care Patient Service Technician Pst Name Role Phone Unavailable Primary Care Provider [...] to complete this topic Insurance CLEM [place] [id number] MEDICARE [place] PART A AND B Compliance [employer]
--- OUTSIDE RECORDS SUMMARY | 2024-12-15 10:48 | XMS_ITS | Clinical Summary ---
Author Organization Healthcare Address [address] [place] [address] Care Team Providers Care Barber Instructor Name Role Phone Timothy Granda DO Primary Care Provider [phone] Allergies Active Allergy Reactions Criticality Noted Date [...] preservative free 02/14/2015 Influenza, trivalent, adjuvanted 12/22/2019 [place] COVID-19 Vaccine (Blue Cap) 18+ 06/10/19 Moderna COVID-19 Vaccine (Re d Cap) 12+ years 07/18/2021,01/27/2021 Moderna COVID-19 Vaccine Bivalent 6months+ 01/25 PPD Skin Test (TB Skin Test) 09/04/2022 [facility] Covid-19 Vaccine 12y+ , Mahesh Protein, PF, [...] place to sleep or slept in a half-way (including now)? Patient refused 07/23/2023 CAGE ASSESSMENT [...] drink first t mini in the morning (EYE-POLICE INVESTIGATOR) to steady your nerves or to get [...] (AWV) 03/13/2023 03/13/2022 UKY-Depression Screening 03/27/2024 03/27/2023 [id number] Vaccine ( season) 2024 02/09/2023, 01/25/2022, 07/18/2021, [...] Antigen Negative Negative 08/02/2023 7:49 PM EDT [facility] Hepatitis A Antibody IgM Negative Negative 08/02/2023 7:49 PM EDT [facility] Hepatitis B Core Antibody IgM Negative Negative 08/02/2023 7:49 PM EDT [facility] Blood Venous blood specimen / Unknown Venipuncture / Unknown 08/02/2023 2:56 PM EDT 08/02/2023 3:22 PM EDT Narrative [facility] - 08/02/2023 7:49 PM EDT [...] ORDERABLES Final R esult Performing Organization Address City/State/[facility] Co de Phone Number [facility] [address] [place] [address] * Flexible Sigmoidoscopy (02/21/2023 10:25 AM EST) [...] Misti Page MD Adam Rooks, MD Proceduralist certified prosthetist vice president Adama Montes CRNA CRNA Harris, Kristi A, RN Endo Nurse Butch Little MD Fellow Tete Whitmore Endo Ripper Operator Preprocedure A history and physical has been [...] of bowel preparation was evaluated using the Taft Bowel Preparation Scale with scores of: left [...] of bowel preparation was evaluated using the Taft Bowel Preparation Scale with scores of: right [...] Most Recently Relevant to Health Maintenance Insurance [place] MED[employer] Member Subscriber Plan / Payer (Ef fective 2013-Present) Name:Farrah Atkinson Member ID:[id number] Relation to Subscriber:Self Name:Farrah Atkinson Subscriber ID:[id number] Payer ID:MEDICARE Group ID:Not on file Type:Medicare Address: [place] [phone] Advance Directives * Full Code (Latest Code [...] Patient has decision-making capacity? Yes Care Teams Barber Instructor Relationship Specialty Start Date End Date Timothy Granda DO [address] [place] [address] PCP - General 05/25/23
--- OUTSIDE RECORDS SUMMARY | 2024-12-15 10:48 | XMS_ITS | Encounter Summary ---
Author Organization [employer] ([place], [place], [place], [place]) Address [address] [place] [address] Care Team Providers Care Wan Support Specialist Name Role Phone [facility], Provider Not In The System Primary Care Provider Unavailable Encounter Details Date Type Department Care Team (Late st Contact Info) Description 04/28/2019 Transcribed Document [facility] [place] Medicine [address] [place] [address] ProviderJean-Claude MD [address] [id number] Social History Tobacco Use Types Packs/Day Years Used Date Smoking Tobacco: Never Assessed Comments Unknown Sex and Gender Information Value Date Recorded Sex Assigned at Not on file Legal Sex Female 5:42 PM CDT Gender Identity Not on file Sexual Orientation Not on file documented as of this encounter Miscellaneous Notes * Cerner Conversion Note - Historical ProviderMD - 04/28/2019 8:05 AM SPRAYER MACHINE ADI Main OR PostOp Summary Primary Physician: MADISON OSPINA MD-ORT Finalized Date/Time: 04/28/19 10:18:29 Pt. Name: MOISE ATKINSON/Sex: 1950 Female Med Rec #: [id number] Physician: MADISON OSPINA MD-ORT Financial #: [id number] Pt. Type: O Room/Bed: Admit/Disch: 04/28/19 05:30:00 - Institution: [facility] Main OR PostOp Case Times Entry 1 In PACU II 04/28/19 09:36:00 Ready for PACU II 04/28/19 10:15:00 Discharge Discharge from PACU 04/28/19 10:15:00 II Last Modified By: Shanel Conrad RN 04/28/19 10:18:24 Finalized By: Shanel Conrad, RN Document Signatures Signed By: Shanel Conrad RN 04/28/19 10:18 documented in this encounter Plan of Treatment Not on file documented as of this encounter Visit Diagnoses Not on filedocumented in this encounter Care Teams Wan Support Specialist Relationship Specialty Start Date End Date [facility], Provider Not In The System, [place] [address] PCP - General 04/16/23 documented as of this encounter
--- OUTSIDE RECORDS SUMMARY | 2024-12-15 10:48 | XMS_ITS | Clinical Summary ---
Author Organization [employer] ([place], [place], [place], [place]) Address [address] [place] [address] Care Team Providers Care Temporary Help Agency Referral Clerk Name Role Phone [facility], Provider Not In The System Primary Care [...] Date Dereje rded Speak language other than Cameroonian at home Not on file 04/12/2023 Want [...] - 1-dose 75+ series) 09/26/2026 Care Teams Temporary Help Agency Referral Clerk Relationship Specialty Start Date End Date [facility], Provider Not In The System, [place] [address] PCP - General 04/16/23
--- OUTSIDE RECORDS SUMMARY | 2024-12-15 10:48 | XMS_ITS | Encounter Summary ---
Author Organization [facility] Address [address] [facility] [place] [address] Care Team Providers Care International Specialist Name Role Phone Unavailable Primary Care Provider Unavailabl e Reason for Visit * Reason Onset Date Comments Surgery Scheduling 10/10/2024 Encounter Details Date Type Department Care Team (Late st Contact Info) Description 10/10/2024 Telephone [facility] [address] [place], [place] [id number] Sharon Paulino MD [address] [place] [address] [address] [place] [address] Surgery Scheduling Social History Tobacco [...]
--- OUTSIDE RECORDS SUMMARY | 2024-12-15 10:48 | XMS_ITS | Encounter Summary ---
Author Organization [employer] ([place], [place], [place], [place]) Address [address] [place] [address] Care Team Providers Care Duplicator Punch Operator Name Role Phone [facility], Provider Not In The System Primary Care Provider Unavailable Encounter Details Date Type Department Care Team (Late st Contact Info) Description 04/28/2019 Transcribed Document [facility] [place] [address] [place] [address] ProviderJean-Claude MD [address], [place] [id number] Social History Tobacco Use Types Packs/Day Years Used Date Smoking Tobacco: Never Assessed Comments Unknown Sex and Gender Information Value Date Recorded Sex Assigned at Not on file Legal Sex Female 5:42 PM CDT Gender Identity Not on file Sexual Orientation Not on file documented as of this encounter Miscellaneous Notes * Cerner Conversion Note - Historical ProviderMD - 04/28/2019 8:05 AM DIRECTOR IMMUNOLOGY ADI Main OR PACU Summary Primary Physician: MADISON OSPINA MD-ORShantel Finalized Date/Time: 04/28/19 09:40:55 Pt. Name: MOISE ATKINSON/Sex: 1950 Female Med Rec #: [id number] Physician: MADISON OSPINA MD-ORT Financial #: [id number] Pt. Type: O Room/Bed: Admit/Disch: 04/28/19 05:30:00 - Institution: [facility] OR PACU Case Times Entry 1 In PACU I 04/28/19 08:38:00 Ready for PACU 04/28/19 09:33:00 Discharge Discharge from PACU 04/28/19 09:33:00 I Last Modified By: Eduarda Patel Rn Patient Care Bedside 04/28/19 09:40:12 [facility] Main OR PACU Case Times Audit 04/28/19 09:40:12 Dispensing Optician: SADE Modifier: SADE <+> 1 Ready for PACU Discharge <+> 1 Discharge from PACU I Finalized By: Eduarda Patel Rn Patient Care Bedside Document Signatures Signed By: Eduarda Patel Rn Patient Care Bedside 04/28/19 09:40 Electronically signed by May [facility] Conversion Emergency Medicine Physician Cerner at 07/23/2022 4:28 PM CDT documented in this encounter Plan of Treatment Not on file documented as of this encounter Visit Diagnoses Not on filedocumented in this encounter Care Teams Duplicator Punch Operator Relationship Specialty Start Date End Date [facility], Provider Not In The System, [place] [address] PCP - General 04/16/23 documented as of this encounter
--- OUTSIDE RECORDS SUMMARY | 2024-12-15 10:48 | XMS_ITS | Referral Summary ---
Author Organization [employer] ([place], [place], [place], [place]) Address [address] [place] [address] Care Team Providers Care Supervisor Erection Shop Name Role Phone [facility], Provider Not In The System Primary Care [...] Date Dereje rded Speak language other than Thai at home Not on file 04/12/2023 Want [...] of Treatment Not on file Care Teams Supervisor Erection Shop Relationship Specialty Start Date End Date [facility], Provider Not In The System, [place] [address] PCP - General 04/16/23
--- OUTSIDE RECORDS SUMMARY | 2024-12-15 10:48 | XMS_ITS | Encounter Summary ---
Author Organization [employer] ([place], [place], [place], [place]) Address [address] [place] [address] Care Team Providers Care Tip Stitcher Name Role Phone [facility], Provider Not In The System Primary Care Provider Unavailable Encounter Details Date Type Department Care Team (Late st Contact Info) Description 04/28/2019 Transcribed Document [facility] [place] [address] [place] [address] ProviderJean-Claude MD [address], [place] [id number] Social History Tobacco Use Types Packs/Day Years Used Date Smoking Tobacco: Never Assessed Comments Unknown Sex and Gender Information Value Date Recorded Sex Assigned at Not on file Legal Sex Female 5:42 PM CDT Gender Identity Not on file Sexual Orientation Not on file documented as of this encounter Miscellaneous Notes * Cerner Conversion Note - Historical ProviderMD - 04/28/2019 9:51 AM BOTTLE CAPPING MACHINE OPERATOR [place] [id number] MOISE PANDEY :1950 Visit Time:04/28/2019 What to do next Your Diagnosis Pain in unspecified knee, Pain in unspecified knee Instructions From Your Care Team No driving or legal decision for 24 hours after anesthesia. may advance diet as tolerated. May take [place] 10-325mg 1 tablet by mouth every 4-6 [...] days Where: [address] [facility] [address] [place] [address]- Medications What How Much When Instructions Next [...] activities are safe for you. ??? Take rhee-vnz-deogisn and prescription medicines only as told by [...] 06/25/2001 Document Revised: 11/02/2017 Document Reviewed: 11/02/2017 Aleth Interactive Patient Education ?? 2019 Aleth Inc. Knee Arthroscopy, Care After Refer to [...] activities are safe for you. ??? Perform pyuuz-up-bhxkfa exercises only as directed by your health [...] 10/06/2005 Document Revised: 08/18/2016 Document Reviewed: 03/15/2015 Aleth Interactive Patient Education ?? 2018 [employer]. acetaminophen and hydrocodone (a SEET a MIN oh fen and ladonna droe KOE done) Hycet, Lorcet, [place], Verdrocet, Vicodin, Xodol, Zamicet What is the [...] may report side effects to FDA at 6-878-LUY-2917. What other drugs will affect acetaminophen and [...] affect acetaminophen and hydrocodone, including prescription and redw-pav-mllpaes medicines, vitamins, and herbal products. Not all [...] to ensure that the information provided by [employer]. ('Multum') is accurate, up-to-date, and complete, but no guarantee is made to that effect. Drug information contained herein may be time sensitive. NextCloud information has been compiled for use by healthcare practitioners and consumers in the [place] and therefore NextCloud does not warrant that uses outside of the [place] are appropriate, unless specifically indicated otherwise. We Tributes drug information does not endorse drugs, diagnose patients or recommend therapy. We Tributes drug information is an informational resource designed [...] effective or appropriate for any given patient. NextCloud does not assume any responsibility for any aspect of healthcare administered with the aid of information NextCloud provides. The information contained herein is not intended to cover all possible uses, directions, precautions, warnings, drug interactions, allergic reactions, or adverse effects. If you have questions about the drugs you are taking, check with your doctor, nurse or pharmacist. Copyright 5382-9376 [employer]. Version: 15.02. Revision Date: 02/04/2018. Emergency Awareness [...] Assistance with quitting is available by contacting 0-074-KCQZ-NOW. This is a free resource providing counseling, [...] was given the opportunity to ask questions. Patient/Plumber'S Assistant Name: Patient/Plumber'S Assistant Signature: Relationship to Patient: Clinician/Hospital Plumber'S Assistant Signature: Date: documented in this encounter Plan of Treatment Not on file documented as of this encounter Visit Diagnoses Not on filedocumented in this encounter Care Teams Tip Stitcher Relationship Specialty Start Date End Date Leslee, Provider Not In The System, [place] [address] PCP - General 04/16/23 documented as of this encounter
--- OUTSIDE RECORDS SUMMARY | 2024-12-15 10:48 | XMS_ITS | Encounter Summary ---
Author Organization [employer] ([place], [place], [place], [place]) Address [address] [place] [address] Care Team Providers Care Chief Deputy Clerk/Bailiff Name Role Phone [facility], Provider Not In The System Primary Care Provider Unavailable Encounter Details Date Type Department Care Team (Late st Contact Info) Description 04/28/2019 Transcribed Document [facility] [place] [facility] [place] [address] ProviderJean-Claude MD [address], [place] [id number] Social History Tobacco Use Types Packs/Day Years Used Date Smoking Tobacco: Never Assessed Comments Unknown Sex and Gender Information Value Date Recorded Sex Assigned at Not on file Legal Sex Female 5:42 PM CDT Gender Identity Not on file Sexual Orientation Not on file documented as of this encounter Miscellaneous Notes * Cerner Conversion Note - Jean-Claude ProviderMD - 04/28/2019 9:47 AM WRAPPER OPERATOR Patient Education Materials Follows: General Anesthesia, Adult, [...] activities are safe for you. ??? Take luie-khv-wpyczkj and prescription medicines only as told by [...] 06/25/2001 Document Revised: 11/02/2017 Document Reviewed: 11/02/2017 Imbera Electronics Interactive Patient Education ? 2019 I[employer] Inc. Knee Arthroscopy, Care After Refer to [...] activities are safe for you. ??? Perform qstwg-bm-fwwbhd exercises only as directed by your health [...] 03/15/2015 Elsevier Interactive Patient Education ? 2018 [employer] Inc. documented in this encounter Plan of Treatment Not on file documented as of this encounter Visit Diagnoses Not on filedocumented in this encounter Care Teams Chief Deputy Clerk/Bailiff Relationship Specialty Start Date End Date Leslee, Provider Not In The System, [place] [address] PCP - General 04/16/23 documented as of this encounter
--- OUTSIDE RECORDS SUMMARY | 2024-12-15 10:48 | XMS_ITS | Encounter Summary ---
Author Organization [employer] ([place], [place], [place], [place]) Address [address] [place] [address] Care Team Providers Care Electroformer Name Role Phone Sj, Provider Not In The System Primary Care Provider Unavailable Encounter Details Date Type Department Care Team (Late st Contact Info) Description 04/28/2019 Transcribed Document [facility] [place] Family Medicine [facility] [place] [address] ProviderJean-Claude MD [address] [place], [place] [id number] Social History Tobacco Use Types Packs/Day Years Used Date Smoking Tobacco: Never Assessed Comments Unknown Sex and Gender Information Value Date Recorded Sex Assigned at Not on file Legal Sex Female 5:42 PM CDT Gender Identity Not on file Sexual Orientation Not on file documented as of this encounter Miscellaneous Notes * Cerner Conversion Note - Jean-Claude ProviderMD - 04/28/2019 9:04 AM INDUSTRIAL AUTOMATION SPECIALIST DATE OF PROCEDURE: 04/28/2019 SURGEON: Timothy Foster [...] to the recovery room in satisfactory condition. /[id number] MD MICHAEL Trujillo/AQ / MICHAEL / MODL /[id number] documented in this encounter Plan of Treatment Not on file documented as of this encounter Visit Diagnoses Not on filedocumented in this encounter Care Teams Electroformer Relationship Specialty Start Date End Date Leslee, Provider Not In The System, [place] [address] PCP - General 04/16/23 documented as of this encounter
--- OUTSIDE RECORDS SUMMARY | 2024-12-15 10:48 | XMS_ITS | Encounter Summary ---
Author Organization [facility] [facility] Address [address] [place] [address], [address] [place] [address] Care Team Providers Care Software Technician Name Role Phone Unavailable Primary Care Provider Unavailabl e Reason for Visit * Reason Onset Date Comments Care Coordination 11/21/2024 Nurse navigato r Encounter Details Date Type Department Care Team (Late st Contact Info) Description 11/21/2024 Telephone [facility] [place] [phone] Willa Lan RN Care Coordination (Nurse navigator) [...]
== END 2024-12-12 23:59 ==
LOC: LAB.DROPOF 12-15 10:43
PROVIDERS: PCP Family Medicine; Visit Provider Family Medicine
DX: I12.9 Hypertensive chronic kidney disease with stage 1 through stage 4 chronic kidney disease, or unspecified chronic kidney disease (principal); N18.9 Chronic kidney disease, unspecified
CPT/HCPCS: 80053; 85025

== ENCOUNTER 2024-12-24 11:03 | Outpatient (CLI) | payer MEDICARE, OTHER, SELFPAY ==
--- OUTSIDE RECORDS SUMMARY | 2024-04-17 07:45 | XMS_ITS ---
Author Organization [facility] Address [address] [place] [address] Care Team Providers Care Wad Compressor Operator Adjuster Name Role Phone Timothy Granda DO Primary Care Provider Tha Chaudhry Unavailable [phone] Jesus Rose Unavailable REASON FOR VISIT NEW PATIENT Encounters Encounter Location Date Provider Diagnosis [facility] [address] [place] [address] 04/17/2024 Jesus Rose Plan Of Treatment No Information Progress Notes * KATHERIN MonroeMaryellenOB:[birth year] (74 yo F)Acc No.[id number]:04/17/2024 Progress Notes Patient: Farrah SEAY Provider: Leelee Rose :1950 A ge:73 Y S ex:Female Date:04/17/2024 [facility] Pcp:Timothy Granda DO Subjective: * Chief Complaints: * 1 . NEW PATIENT. * Medical History: Objective: * Vitals: Assessment: Plan: * Treatment: * * Electronic signature of Reza Rose APRN on 12/26/2024 at 11:07 AM EDT Sign off status: Pending * Provider: Leelee Rose Date: 0 04/17/2024 Generated for Brisa conway/Sahra/Angela on: 0 12/26/2024 11:07 AM EDT
--- OUTSIDE RECORDS SUMMARY | 2024-05-13 09:30 | XMS_ITS ---
Author Organization [facility] Address [address] [place] [address] Care Team Providers Care Palliative Senior Np Name Role Phone Timothy Granda DO Primary Care Provider Tha Chaudhry Unavailable [phone] REASON FOR VISIT NEW PATIENT Encounters Encounter Location Date Provider Diagnosis [facility] [address] [place] [address] 05/13/2024 Tha Krishnamurthy Plan Of Treatment No Information Progress Notes * Giselle ATKINSONOB:[birth year] (74 yo F)Acc No.[id number]:05/13/2024 Progress Notes Patient: Farrah SEAY Provider: Sarabjit Krishnamurthy MD :1950 A ge:73 Y S ex:Female Date:05/13/2024 [facility] Pcp:Timothy Granda DO Subjective: * Chief Complaints: * 1 . NEW PATIENT. * Medical History: Objective: * Vitals: Assessment: Plan: * Treatment: * * Electronic signature of Didier Krishnamurthy MD on 12/26/2024 at 11:06 AM EDT Sign off status: Pending * Provider: Sarabjit Krishnamurthy MD Date: 0 05/13/2024 Generated for Brisa conway/Sahra/eTnamsmitting on: 0 12/26/2024 11:06 AM EDT
--- OUTSIDE RECORDS SUMMARY | 2024-06-17 09:30 | XMS_ITS ---
Author Organization [facility] Address [address] [place] [address] Care Team Providers Care Cattle Dipper Name Role Phone Timothy Granda DO Primary Care Provider Tha Chaudhry [facility] [phone] REASON FOR VISIT NEW PATIENT Encounters Encounter Location Date Provider Diagnosis [facility] [address] [place] [address] 06/17/2024 Tha Krishnamurthy Plan Of Treatment No Information Progress Notes * Giselle ATKINSONOB:[birth year] (74 yo F)Acc No.[id number]:06/17/2024 Progress Notes Patient: Farrah SEAY Provider: Sarabjit Krishnamurthy MD :1950 A ge:73 Y S ex:Female Date:06/17/2024 [facility] Pcp:Timothy Granda DO Subjective: * Chief Complaints: * 1 . NEW PATIENT. * Medical History: Objective: * Vitals: Assessment: Plan: * Treatment: * * Electronic signature of Didier Krishnamurthy MD on 12/26/2024 at 11:07 AM EDT Sign off status: Pending * Provider: Sarabjit Krishnamurthy MD Date: 06/17/2024 Generated for Brisa conway/Sahra/eTnamsmitting on: 0 12/26/2024 11:07 AM EDT
[2024-12-24 15:57] LABS: Hematocrit 36.1 % (37.0-47.0); Hemoglobin 11.0 g/dL (12.2-16.2); Immature Granulocytes % 0.5 %; Mean Corpuscular HGB Conc 30.5 g/dL (31.8-35.4); Mean Corpuscular Hemoglobin 28.9 pg (27.0-31.2); Mean Corpuscular Volume 94.8 fl (81-99); Nucleated Red Blood Cells % 0 %; Platelet Count 350 K/mm3 (142-424); Red Blood Count 3.81 M/mm3 (4.20-5.40); Red Cell Distribution Width-SD 50.1 fL; White Blood Count 7.6 K/mm3 (4.8-10.8)
[2024-12-24 17:02] LABS: Albumin Level 4.2 g/dl (3.5-5.0); Chloride 105 mmol/L (98-107); Potassium 4.8 mmoL/L (3.5-5.1); Sodium 135 mmol/L (136-145)
[2024-12-24 17:05] LABS: Alanine Aminotransferase 14 U/L (12-78); Albumin/Globulin Ratio 1.8 (1.1-1.8); Alkaline Phosphatase 105 U/L (38-126); Anion Gap 15.8 mEq/L (5-15); Aspartate Amino Transferase 27 U/L (14-36); Bilirubin,Total 0.5 mg/dl (0.2-1.3); Blood Urea Nitrogen 15 mg/dl (7-17); Calcium 9.7 mg/dl (8.4-10.2); Carbon Dioxide 19 mmol/L (22.0-30.0); Creatinine,Serum 1.20 mg/dl (0.52-1.04); Estimated Glomerular Filt Rate 44 ml/min (>60); GFR (African American) 53 ML/MIN (>60); Globulin 2.3 g/dL (1.3-3.2); Glucose 81 mg/dl (74-100); Total Protein,Serum 6.5 g/dl (6.3-8.2)
--- OUTSIDE RECORDS SUMMARY | 2024-12-26 11:07 | XMS_ITS ---
Author Organization [facility] Address [address] [place] [id number] Care Team Providers Care Import Clerk Name Role Phone Timothy Granda DO Primary Care Provider Hepatitis C Program Status:Paused (Paused) Start date:08/03/2022 Enrollment date:08/03/2022 Enrollment reason:HCV Continued Care and Services Coordination
--- OUTSIDE RECORDS SUMMARY | 2024-12-26 11:07 | XMS_ITS | Encounter Summary ---
Author Organization [facility] Address [address] [place] [id number] Care Team Providers Care Low Raw Sugar Cutter Name Role Phone GabrielTimothy armenta Primary Care Provider [phone] Reason for Visit * Reason Comments Med Refill Encounter Details Date Type Department Care Team (Late st Contact Info) Description 12/22/2021 Refill [facility] [address] [place] [address] Connor Nunez MD [address] [place] [address] Chronic arthritis associated with viral [...] documented as of this encounter Care Teams Low Raw Sugar Cutter Relationship Specialty Start Date End Date Timothy Granda DO [address] [place] [address] SH[place]LAURA CLEM [address] PCP - General Internal Medicine 06/12/23 documented as of this encounter
--- OUTSIDE RECORDS SUMMARY | 2024-12-26 11:07 | XMS_ITS | Encounter Summary ---
Author Organization [facility] Address [address], [address] [place] [address] Care Team Providers Care Speech And Language Specialist Name Role Phone Unavailable Primary Care Provider Unavailabl e Reason for Visit * Reason Onset Date Comments Surgery Scheduling 10/10/2024 Encounter Details Date Type Department Care Team (Late st Contact Info) Description 10/10/2024 Telephone [facility] [address] [place], [place] [phone] Sharon Paulino MD [address] [place] [address] [address] [place] [address] Surgery Scheduling Social History Tobacco [...]
--- OUTSIDE RECORDS SUMMARY | 2024-12-26 11:07 | XMS_ITS | Clinical Summary ---
Author Organization [employer] ([place], [place], [place], [place]) Address [address] [place] [address] Care Team Providers Care Electric Shipyard Operator Name Role Phone [facility], [...] Date Dereje rded Speak language other than Equatorial Guinean at home Not on file 04/12/2023 Want [...] - 1-dose 75+ series) 09/26/2026 Care Teams Electric Shipyard Operator Relationship Specialty Start Date End Date [facility], Provider Not In The System, [place] [address] PCP - General 04/16/23
--- OUTSIDE RECORDS SUMMARY | 2024-12-26 11:07 | XMS_ITS | Encounter Summary ---
Author Organization [employer] ([place], [place], [place], [place]) Address [address] [place] [address] Care Team Providers Care Marketing Services Rep Name Role Phone [facility], Provider Not In The System Primary Care Provider Unavailable Encounter Details Date Type Department Care Team (Late st Contact Info) Description 04/28/2019 Transcribed Document [facility] [place] [facility] [place] [address] ProviderJean-Claude MD [facility] [place], [place] [id number] Social History Tobacco Use Types Packs/Day Years Used Date Smoking Tobacco: Never Assessed Comments Unknown Sex and Gender Information Value Date Recorded Sex Assigned at Not on file Legal Sex Female 5:42 PM CDT Gender Identity Not on file Sexual Orientation Not on file documented as of this encounter Miscellaneous Notes * Cerner Conversion Note - Historical ProviderMD - 04/28/2019 8:29 AM TAPE KELLER OPERATOR Pain Assessment Entered On: 04/28/2019 9:06 EST [...] on filedocumented in this encounter Care Teams Marketing Services Rep Relationship Specialty Start Date End Date Leslee, Provider Not In The System, [place] [address] PCP - General 04/16/23 documented as of this encounter
--- OUTSIDE RECORDS SUMMARY | 2024-12-26 11:07 | XMS_ITS | Referral Summary ---
Author Organization [employer] ([place], [place], [place], [place]) Address [address] [place] [address] Care Team Providers Care Manager Data Center Name Role Phone [facility] [...] Date Dereje rded Speak language other than Ivorian at home Not on file 04/12/2023 Want [...] of Treatment Not on file Care Teams Manager Data Center Relationship Specialty Start Date End Date [facility], Provider Not In The System, [place] [address] PCP - General 04/16/23
--- OUTSIDE RECORDS SUMMARY | 2024-12-26 11:07 | XMS_ITS | Encounter Summary ---
Author Organization [employer] [facility] Address [address], [address] [place] [address] Care Team Providers Care Ore Fielder Name Role Phone Unavailable Primary Care Provider Unavailabl e Reason for Visit * Reason Onset Date Comments IMAGING 09/05/2024 Encounter Details Date Type Department Care Team (Late st Contact Info) Description 09/05/2024 Telephone [facility] [address] [place] [address] Sharon Paulino MD [address] [place] [address] [address] [place] [address] IMAGING Social History Tobacco Use [...]
--- OUTSIDE RECORDS SUMMARY | 2024-12-26 11:07 | XMS_ITS | Encounter Summary ---
Author Organization [employer] ([place], [place], [place], [place]) Address [address] [place] [address] Care Team Providers Care Explosive Ordnance Handler Name Role Phone [facility], Provider Not In The System Primary Care Provider Unavailable Encounter Details Date Type Department Care Team (Late st Contact Info) Description 04/28/2019 Transcribed Document [facility] [place] [facility] [place] [address] ProviderJean-Claude MD [address], [place] [id number] Social History Tobacco Use Types Packs/Day Years Used Date Smoking Tobacco: Never Assessed Comments Unknown Sex and Gender Information Value Date Recorded Sex Assigned at Not on file Legal Sex Female 5:42 PM CDT Gender Identity Not on file Sexual Orientation Not on file documented as of this encounter Miscellaneous Notes * Cerner Conversion Note - Jean-Claude ProviderMD - 04/28/2019 9:47 AM TRUCK DRIVING Patient Education Materials Follows: General Anesthesia, Adult, [...] activities are safe for you. ??? Take htjk-sew-qudtnes and prescription medicines only as told by [...] 06/25/2001 Document Revised: 11/02/2017 Document Reviewed: 11/02/2017 [employer] Interactive Patient Education ? 2019 [employer] Knee Arthroscopy, Care After Refer to [...] activities are safe for you. ??? Perform vfurp-ni-gkaguz exercises only as directed by your health [...] 03/15/2015 Elsevier Interactive Patient Education ? 2018 [employer] Electronically signed by Leslee Olvera Conversion Self Sealing Fuel Tank Repairer Cerner at 07/23/2022 4:28 PM CDT documented in this encounter Plan of Treatment Not on file documented as of this encounter Visit Diagnoses Not on filedocumented in this encounter Care Teams Explosive Ordnance Handler Relationship Specialty Start Date End Date Leslee, Provider Not In The System, [place] [address] PCP - General 04/16/23 documented as of this encounter
--- OUTSIDE RECORDS SUMMARY | 2024-12-26 11:07 | XMS_ITS | Encounter Summary ---
Author Organization [employer] ([place], [place], [place], [place]) Address [address] [place] [address] Care Team Providers Care Fur Repairer Name Role Phone Sj, Provider Not In The System Primary Care Provider Unavailable Encounter Details Date Type Department Care Team (Late st Contact Info) Description 04/28/2019 Transcribed Document [facility] [place] [facility] [place] [address] ProviderJean-Claude MD [address] [place], [place] [id number] Social History Tobacco Use Types Packs/Day Years Used Date Smoking Tobacco: Never Assessed Comments Unknown Sex and Gender Information Value Date Recorded Sex Assigned at Not on file Legal Sex Female 5:42 PM CDT Gender Identity Not on file Sexual Orientation Not on file documented as of this encounter Miscellaneous Notes * Cerner Conversion Note - Jean-Claude ProviderMD - 04/28/2019 9:04 AM ADJUSTO WRITER OPERATOR DATE OF PROCEDURE: 04/28/2019 SURGEON: Timothy Foster [...] to the recovery room in satisfactory condition. /[id number] MD MICHAEL Trujillo/AQ / MICHAEL / MODL /[id number] documented in this encounter Plan of Treatment Not on file documented as of this encounter Visit Diagnoses Not on filedocumented in this encounter Care Teams Fur Repairer Relationship Specialty Start Date End Date Leslee, Provider Not In The System, [place] [address] PCP - General 04/16/23 documented as of this encounter
--- OUTSIDE RECORDS SUMMARY | 2024-12-26 11:07 | XMS_ITS | Encounter Summary ---
Author Organization [employer] ([place], [place], [place], [place]) Address [address] [place] [address] Care Team Providers Care Channeling Machine Operator Name Role Phone [facility], Provider Not In The System Primary Care Provider Unavailable Encounter Details Date Type Department Care Team (Late st Contact Info) Description 04/28/2019 Transcribed Document [facility] [place] [address] [place] [address] ProviderJean-Claude MD [address] [place], [place] [id number] Social History Tobacco Use Types Packs/Day Years Used Date Smoking Tobacco: Never Assessed Comments Unknown Sex and Gender Information Value Date Recorded Sex Assigned at Not on file Legal Sex Female 5:42 PM CDT Gender Identity Not on file Sexual Orientation Not on file documented as of this encounter Miscellaneous Notes * Cerner Conversion Note - Historical ProviderMD - 04/28/2019 9:51 AM 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 may advance diet as tolerated. May take [place] 10-325mg 1 tablet by mouth every 4-6 [...] Within 2 to 3 days Where: [address] [facility] [address] [place] [address]- Medications What How Much When Instructions Next [...] activities are safe for you. ??? Take wsae-nvi-khfywbt and prescription medicines only as told by [...] 06/25/2001 Document Revised: 11/02/2017 Document Reviewed: 11/02/2017 Collaborate.[employer] Interactive Patient Education ?? 2019 Collaborate.[employer] Inc. Knee Arthroscopy, Care After Refer to [...] activities are safe for you. ??? Perform vmgot-ki-sbttpa exercises only as directed by your health [...] 10/06/2005 Document Revised: 08/18/2016 Document Reviewed: 03/15/2015 Collaborate.com Interactive Patient Education ?? 2018 [employer]. acetaminophen and hydrocodone (a SEET a MIN oh fen and ladonna droe KOE done) Hycet, Lorcet, [place], Verdrocet, Vicodin, Xodol, Zamicet What is the [...] may report side effects to FDA at 2-304-GUL-8868. What other drugs will affect acetaminophen and [...] affect acetaminophen and hydrocodone, including prescription and urhl-fcu-injompb medicines, vitamins, and herbal products. Not all [...] to ensure that the information provided by Access [employer]. ('Multum') is accurate, up-to-date, and complete, but no guarantee is made to that effect. Drug information contained herein may be time sensitive. DataRPM information has been compiled for use by healthcare practitioners and consumers in the [place] and therefore DataRPM does not warrant that uses outside of the [place] are appropriate, unless specifically indicated otherwise. Just Eats drug information does not endorse drugs, diagnose patients or recommend therapy. Just Eats drug information is an informational resource designed [...] effective or appropriate for any given patient. DataRPM does not assume any responsibility for any aspect of healthcare administered with the aid of information DataRPM provides. The information contained herein is not intended to cover all possible uses, directions, precautions, warnings, drug interactions, allergic reactions, or adverse effects. If you have questions about the drugs you are taking, check with your doctor, nurse or pharmacist. Copyright 1960-3424 Access Mobile. Version: 15.02. Revision Date: 02/04/2018. Emergency Awareness [...] Assistance with quitting is available by contacting 6-654-YSLA-NOW. This is a free resource providing counseling, [...] was given the opportunity to ask questions. Patient/Manager Talent Name: Patient/Manager Talent Signature: Relationship to Patient: Clinician/Hospital Manager Talent Signature: Date: documented in this encounter Plan of Treatment Not on file documented as of this encounter Visit Diagnoses Not on filedocumented in this encounter Care Teams Channeling Machine Operator Relationship Specialty Start Date End Date Leslee, Provider Not In The System, [place] [address] PCP - General 04/16/23 documented as of this encounter
--- OUTSIDE RECORDS SUMMARY | 2024-12-26 11:07 | XMS_ITS | Encounter Summary ---
Author Organization [employer] ([place], [place], [place], [place]) Address [address] [place] [address] Care Team Providers Care Sales Representative Uniforms Name Role Phone [facility], Provider Not In The System Primary Care Provider Unavailable Encounter Details Date Type Department Care Team (Late st Contact Info) Description 04/28/2019 Transcribed Document [facility] Family Medicine [address] [place] [address] ProviderJean-Claude MD [address], [place] [id number] Social History Tobacco Use Types Packs/Day Years Used Date Smoking Tobacco: Never Assessed Comments Unknown Sex and Gender Information Value Date Recorded Sex Assigned at Not on file Legal Sex Female 5:42 PM CDT Gender Identity Not on file Sexual Orientation Not on file documented as of this encounter Miscellaneous Notes * Cerner Conversion Note - Historical ProviderMD - 04/28/2019 10:01 AM 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 may advance diet as tolerated. May take [place] 10-325mg 1 tablet by mouth every 4-6 [...] Comments Appointment has been made Where: [address] [facility] [address] [place] [address]- Medications What How Much When Instructions Next [...] activities are safe for you. ??? Take fsba-qil-zrzhaxe and prescription medicines only as told by [...] 06/25/2001 Document Revised: 11/02/2017 Document Reviewed: 11/02/[address] [employer] Patient Education ?? [address] [employer] Knee Arthroscopy, Care After Refer to [...] activities are safe for you. ??? Perform kvnpr-mm-agyvie exercises only as directed by your health [...] 10/06/2005 Document Revised: 08/18/2016 Document Reviewed: 03/15/[address] Interactive Patient Education ?? 2018 [employer]. acetaminophen and hydrocodone (a SEET a MIN oh fen and ladonna droe KOE done) Hycet, Lorcet, [place], Verdrocet, Vicodin, Xodol, Zamicet What is the [...] may report side effects to FDA at 3-644-YGO-1538. What other drugs will affect acetaminophen and [...] affect acetaminophen and hydrocodone, including prescription and isic-qei-ujpumgx medicines, vitamins, and herbal products. Not all [...] to ensure that the information provided by [employer]. ('[employer]') is accurate, up-to-date, and complete, but no guarantee is made to that effect. Drug information contained herein may be time sensitive. [employer]ified information has been compiled for use by healthcare practitioners and consumers in the [place] and therefore [employer] does not warrant that uses outside of the [place] are appropriate, unless specifically indicated otherwise. [employer] drug information does not endorse drugs, diagnose patients or recommend therapy. [employer] drug information is an informational resource designed [...] effective or appropriate for any given patient. [employer] does not assume any responsibility for any aspect of healthcare administered with the aid of information [employer] provides. The information contained herein is not intended to cover all possible uses, directions, precautions, warnings, drug interactions, allergic reactions, or adverse effects. If you have questions about the drugs you are taking, check with your doctor, nurse or pharmacist. Copyright 5293-6538 [employer]. Version: 15.02. Revision Date: 02/04/2018. Emergency Awareness [...] Assistance with quitting is available by contacting 7-146-ESKF-NOW. This is a free resource providing counseling, [...] was given the opportunity to ask questions. Patient/Yarn Carrier Name: Patient/Yarn Carrier Signature: Relationship to Patient: Clinician/Hospital Yarn Carrier Signature: Date: documented in this encounter Plan of Treatment Not on file documented as of this encounter Visit Diagnoses Not on filedocumented in this encounter Care Teams Sales Representative Uniforms Relationship Specialty Start Date End Date Deejay, Provider Not In The System, [place] [address] PCP - General 04/16/23 documented as of this encounter
--- OUTSIDE RECORDS SUMMARY | 2024-12-26 11:07 | XMS_ITS | Clinical Summary ---
Author Organization [facility] [facility] Address [address], [address] [place] [address] Care Team Providers Care Production Expediter Name Role Phone Unavailable Primary Care Provider [...] (ZANAFLEX) 4 MG tablet 03/20/2024 Active CREON [id number] units CPEP delayed release capsule TAKE ONE [...] Type Department Care Team Description 12/08/[address] [facility], [place] [address] Sharon Paulino MD Surgery Scheduling 11/21/2024 Telephone [facility] [address] [address] Willa Lan RN Care Coordination (Nurse navigator) 11/20/2024 Telephone [facility] [address] [facility] [address] [place] [id number] Sharon Paulino MD Surgery Scheduling ( SHDLR) 11/05/2024 Prep for Procedure [facility] Orthopedic [facility] Sports [address] [address] Laisha Galvan MA 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
--- OUTSIDE RECORDS SUMMARY | 2024-12-26 11:07 | XMS_ITS | Patient Health Record ---
Author Organization [facility] Address [address] [place] [address] Care Team Providers Care Charge Out Clerk Name Role Phone Timothy Granda DO Primary Care Provider Tha Chaudhry Unavailable [phone] Jesus Rose Unavailable Unavailable Reason For Referral No Information Encounters Encounter Location Date Provider Diagnosis [facility] [address] [place] [address] 04/01/2024 Tha Krishnamurthy [facility] [address] [place] [address] 05/13/2024 Tha Krishnamurthy [facility] [address] [place] [address] 06/17/2024 Tha Krishnamurthy Plan Of Treatment No Information Insurance Providers Payer Name Payer Address Payer Phone Subscriber Number Group Number Insured Name Patient Relationship to Insured Coverage Start Date Coverage End Date Medicare CGS Administrators [address] [phone] Farrah Anna Self - patient is the insured
--- OUTSIDE RECORDS SUMMARY | 2024-12-26 11:07 | XMS_ITS | Clinical Summary ---
Author Organization [facility] Address [address] [place] [address] Care Team Providers Care Circle Cutting Saw Operator Name Role Phone KaleeTimothy Primary Care Provider [phone] Allergies Active Allergy Reactions Criticality Noted Date [...] Patient may need Pain Management referral. Discontinue [place] and use oxycodone 10mg q6h prn. Discussed with patient will not increase this medicine intermodal customer service prescription opiate use 03/13/2022 Chronic arthritis associated [...] 06/23/2023 06/22/2022, 03/02, 06/15/2021, Additional history exists INFLUENZA VACCINE 10/31/2024 02/08/2023, , 01/25/2022, Additional history exists COVID-19 Vaccine ( season) 2024 01/25/2022, 07/18/2021, 01/27/2021, Additional history exists MAMMOGRAM 02/28/2025 02/28/2023, 02/01, [...] this topic Medical Devices Implanted Type Area Infrastructure Manager Device Identifier Shelf Expiration Date Model / Serial / Lot Cmt Bone Simplex/P Full Dose 10/Pk - [id number] Implanted:Qty : 1 on 07/18/2018 by Bautista Luis MD at [facility] Implant Right: Shoulder TRACY RUBEN 09/29/2020 [id number] / / [id number] Stem Hum Univers Onset 6x60mm - [id number] Implanted:Qty : 1 on 07/18/2018 by Bautista Luis MD at [facility] Implant Right: Shoulder ARTHREX 08/30/2022 [id number] / / [id number] Alberto Vaultlock Sm - [id number] Implanted:Qty : 1 on 07/18/2018 by Bautista Luis MD at [facility] Implant Right: Shoulder ARTHREX 12/30/2022 [id number] / / [id number] Hd Hum Univers2 Cocr 06k55gj - [id number] Implanted:Qty : 1 on 07/18/2018 by Bautista Luis MD at [facility] Implant Right: Shoulder ARTHREX 03/01/2022 [id number] / / [id number] Sut Tw 2/0 38in Wht/Blk - [id number] Implanted:Qty : 3 on 07/18/2018 by Bautista Luis MD at [facility] Implant Right: Shoulder ARTHREX [id number] / / Totl Arth Shldr S3 - [id number] Implanted:Qty : 1 on 07/18/2018 by Bautista Luis MD at [facility] Implant Right: Shoulder ARTHREX CAPTOTLSHLD [id number] / / Procedures Procedure Name Priority Date/Time [...] 5:07 AM EST Performed at: 01 - [facility] [address] [place], [place] [id number] Skidder Runner: Carlos Rod PhD, Phone: [phone] Connor Nunez MD LAB BLOOD ORDERABLES Fin al Result Performing Organization Address [facility] Co de Phone Number [facility] [address] [place] [address], [facility] [address] [place] [address], * Hepatitis C Genotype (12/15/2021 11:55 AM EDT) [facility] Signature Hepatitis C Genotype Comment [facility] Comment: Specimen has insufficient hepatitis C virus RNA to obtain genotyping results. This genotyping assay should only be used for known HCV positive patients with HCV RNA levels above 1000 IU/mL. Please note Comment [facility] Comment: This test was developed and its performance characteristics determined by [facility]. It has not been cleared or approved by the U.S. Food and Drug Administration. The FDA has determined that such clearance or approval is not necessary. This test is used for clinical purposes. It should not be regarded as investigational or for research. Blood 12/15/2021 11:5 5 AM EDT 12/16/2021 Narrative [facility] - 12/21/2021 8:08 PM EDT Performed at: [address] [place] [id number] Skidder Runner: Genna Davenport MD, Phone: [phone] Patient Fasting: Y Connor Nunez MD LAB BLOOD ORDERABLES Fin al Result Performing Organization Address [facility] Co de Phone Number [facility] [address] [place] [address], [facility] [address] [place], [place] [id number], * SCANNED - MAMMO (08/23/2021) Anatomical Region Laterality Modality Other Connor Nunez MD CHART REVIEW TABS Fin al Result * Hemoglobin A1c (07/10/2018 3:05 PM EDT) Hemoglobin A1C 5.10 4.80 - 5.60 % 07/10/2018 3:58 PM EDT [facility] Blood Venipuncture / Unknown 07/10/2018 3:05 PM EDT 07/10/2018 3:36 PM EDT Narrative [facility] - 07/10/2018 3:58 PM EDT Hemoglobin A1C Ranges: Increased Risk for Diabetes 5.7% to 6.4% Diabetes >= 6.5% Diabetic Goal < 7.0% Bautista Luis MD LAB BLOOD ORDERABLES Fin al Result [facility]
[address] [place] [address], from Last 3 Months or Most Recently Relevant to Health Maintenance Insurance MEDICARE A & B Member Subscriber Plan / Payer (Ef fective 2013-Present) Name:Farrah Atkinson Member ID:[id number] Relation to Subscriber:Self Name:Farrah Atkinson Subscriber ID:[id number] Payer ID:[id number] Group ID:Not on file Type:Not on file Address: [facility] [id number] [address] [place] [address] Advance Directives * CPR (Attempt to Resuscitate) (Latest Code Status on File) Date Activated Date Inactivated Comments 07/18/2018 6:35 PM 07/19/2018 6:14 PM Question Answer Comments Code Status (Patient has no pulse and is not breathing): CPR (Attempt to Resuscitate) Medical Interventions (Patie nt has pulse or is breathing): Full Level Of Support Discussed With: Patient Care Teams Circle Cutting Saw Operator Relationship Specialty Start Date End Date Timothy Granda DO [address] [place] [address] PCP - General Internal Medicine 06/12/23
--- OUTSIDE RECORDS SUMMARY | 2024-12-26 11:07 | XMS_ITS | Encounter Summary ---
Author Organization [employer] ([place], [place], [place], [place]) Address [address] [place] [address] Care Team Providers Care Museum Assistant Name Role Phone [facility], Provider Not In The System Primary Care Provider Unavailable Encounter Details Date Type Department Care Team (Late st Contact Info) Description 04/28/2019 Transcribed Document [facility] Family Medicine [address] [place] [address] ProviderJean-Claude MD [address], [place] [id number] Social History Tobacco Use Types Packs/Day Years Used Date Smoking Tobacco: Never Assessed Comments Unknown Sex and Gender Information Value Date Recorded Sex Assigned at Not on file Legal Sex Female 5:42 PM CDT Gender Identity Not on file Sexual Orientation Not on file documented as of this encounter Miscellaneous Notes * Cerner Conversion Note - Historical ProviderMD - 04/28/2019 8:05 AM A AND P MECHANIC [facility] Main OR PreOp Summary Primary Physician: MADISON OSPINA MD-ORT Finalized Date/Time: 04/28/19 09:32:12 Pt. Name: MOISE ATKINSON/Sex: 1950 Female Med Rec #: [id number] Physician: MADISON OSPINA MD-ORT Financial #: [id number] Pt. Type: O Room/Bed: Admit/Disch: 04/28/19 05:30:00 - Institution: [facility] PreOp Case Times Entry 1 In Preop 04/28/19 05:40:00 Ready for Holding n/a Room Patient Ready for 04/28/19 07:15:00 Surgery Patient Out of Preop 04/28/19 07:36:00 Patient Out of n/a Holding Room Last Modified By: ISAMAR MORRISON, SPENCER 04/28/19 09:32:08 [facility] PreOp Case Times Audit 04/28/19 09:32:08 Web Master: [email or web address] Modifier: FLOYDSF <+> 1 Patient Out of Preop Finalized By: ISAMAR MORRISON, RN Document Signatures Signed By: ISAMAR MORRISON RN 04/28/19 09:32 documented in this encounter Plan of Treatment Not on file documented as of this encounter Visit Diagnoses Not on filedocumented in this encounter Care Teams Museum Assistant Relationship Specialty Start Date End Date [facility], Provider Not In The System, [place] [address] PCP - General 04/16/23 documented as of this encounter
--- OUTSIDE RECORDS SUMMARY | 2024-12-26 11:07 | XMS_ITS | Encounter Summary ---
Author Organization [employer] ([place], [place], [place], [place]) Address [address] [place] [address] Care Team Providers Care Journeyman Electrician Name Role Phone [facility], Provider Not In The System Primary Care Provider Unavailable Encounter Details Date Type Department Care Team (Late st Contact Info) Description 04/28/2019 Transcribed Document [facility] Family Medicine [address] [place] [address] ProviderJean-Claude MD [address] [place], [place] [id number] Social History Tobacco Use Types Packs/Day Years Used Date Smoking Tobacco: Never Assessed Comments Unknown Sex and Gender Information Value Date Recorded Sex Assigned at Not on file Legal Sex Female 5:42 PM CDT Gender Identity Not on file Sexual Orientation Not on file documented as of this encounter Miscellaneous Notes * Cerner Conversion Note - Historical ProviderMD - 04/28/2019 8:05 AM OIL PUMP STATION OPERATOR CHIEF [facility] Main OR PACU Summary Primary Physician: MADISON OSPINA MD-ORShantel Finalized Date/Time: 04/28/19 09:40:55 Pt. Name: MOISE ATKINSON/Sex: 1950 Female Med Rec #: [id number] Physician: MADISON OSPINA MD-ORT Financial #: [id number] Pt. Type: O Room/Bed: Admit/Disch: 04/28/19 05:30:00 - Institution: [facility] OR PACU Case Times Entry 1 In PACU I 04/28/19 08:38:00 Ready for PACU 04/28/19 09:33:00 Discharge Discharge from PACU 04/28/19 09:33:00 I Last Modified By: Eduarda Patel Rn Patient Care Bedside 04/28/19 09:40:12 [facility] Main OR PACU Case Times Audit 04/28/19 09:40:12 Client Delivery Specialist: SADE Modifier: SADE <+> 1 Ready for PACU Discharge <+> 1 Discharge from PACU I Finalized By: Eduarda Patel Rn Patient Care Bedside Document Signatures Signed By: Eduarda Patel Rn Patient Care Bedside 04/28/19 09:40 Electronically signed by May [facility] Conversion Threat Monitoring Analyst Cerner at 07/23/2022 4:28 PM CDT documented in this encounter Plan of Treatment Not on file documented as of this encounter Visit Diagnoses Not on filedocumented in this encounter Care Teams Journeyman Electrician Relationship Specialty Start Date End Date [facility], Provider Not In The System, [place] [address] PCP - General 04/16/23 documented as of this encounter
--- OUTSIDE RECORDS SUMMARY | 2024-12-26 11:07 | XMS_ITS | Encounter Summary ---
Author Organization [employer] ([place], [place], [place], [place]) Address [address] [place] [address] Care Team Providers Care Drywall Installer Name Role Phone [facility], Provider Not In The System Primary Care Provider Unavailable Encounter Details Date Type Department Care Team (Late st Contact Info) Description 04/28/2019 Transcribed Document [facility] Family Medicine [facility] [place] [address] ProviderJean-Claude MD [address], [place] [phone] Social History Tobacco Use Types Packs/Day Years Used Date Smoking Tobacco: Never Assessed Comments Unknown Sex and Gender Information Value Date Recorded Sex Assigned at Not on file Legal Sex Female 5:42 PM CDT Gender Identity Not on file Sexual Orientation Not on file documented as of this encounter Miscellaneous Notes * Cerner Conversion Note - Historical ProviderMD - 04/28/2019 8:05 AM PIT TANNER [facility] Main OR IntraOp Summary Primary Physician: MADISON OSPINA MD-ORT Finalized Date/Time: 04/28/19 08:39:15 Pt. Name: FARRAH ATKINSON D.O.B./Sex: 1950 Female Med Rec #: [id number] Physician: MADISON OSPINA MD-ORT Financial #: [id number] Pt. Type: O Room/Bed: Admit/Disch: 04/28/19 05:30:00 - [place] [facility] [place] Attendance Entry 1 Entry 2 Entry 3 Case Attendee MADISON OSPINA MD-ORT WICKER, KAREN KIM, ARIA WATERS RN Role Performed Surgeon/Proceduralist, CONTACT CENTER SPECIALIST/Nurse Child And Youth Program Assistant Unit Assistant, First First Time In 04/28/19 07:39:00 04/28/19 [...] [facility] IntraOp Case Attendance Audit 04/28/19 08:34:51 Motorcycle Delivery Driver: LONGGA Modifier: LONGGA 1 <+> Time Out 1 <*> Procedure Knee Arthroscopy 2 <+> Time Out 2 <*> Procedure Knee Arthroscopy 3 <+> Time Out 3 <*> Procedure Knee Arthroscopy 4 <+> Time Out 4 <*> Procedure Knee Arthroscopy 5 <+> Time Out 5 <*> Procedure Knee Arthroscopy 04/28/19 08:07:14 Motorcycle Delivery Driver: LONGGA Modifier: LONGGA <+> 1 Time In [...] [facility] IntraOp Case Times Audit 04/28/19 08:34:50 Motorcycle Delivery Driver: LONGGA Modifier: LONGGA <+> 1 Out Room Time <+> 1 Stop Time 04/28/19 08:31:56 Motorcycle Delivery Driver: LONGGA Modifier: LONGGA <+> 1 Stop Time [...] IntraOp Departure from OR Audit 04/28/19 08:32:27 Motorcycle Delivery Driver: EMBER Modifier: LONGGA 1 <*> Patient Transport [...] RN 04/28/19 08:15:47 [facility] IntraOp General Case Group Practice Pediatrician 1 Case Information OR OR 05 [facility] Case Level 1 Room Verified Yes Wound Class I - Clean Specialty SN Orthopedic Anesthesia Type General ASA Class 3 Diagnosis Preop Diagnosis PATELLAR CHONDROMALACIA RIGHT KNEE Postop Same As Preop No Postop Diagnosis DICTATED BY Mary Last Modified By: ARIA MELCHOR RN 04/28/19 08:15:39 [facility] IntraOp General Case Data Audit 04/28/19 08:15:39 Motorcycle Delivery Driver: EMBER Modifier: LONGGA <+> 1 ASA Class [...] Entry 1 Medication/Irrigant epinephrine 30mg/30ml vial - [id number] Route of 3ML/3000ML OF NS Administration IRRIGATION [...] [facility] IntraOp Patient Positioning Audit 04/28/19 08:17:49 Motorcycle Delivery Driver: LONGGA Modifier: LONGGA 1 <*> Procedure Knee [...] [facility] IntraOp Surgical Procedures Audit 04/28/19 08:31:50 Motorcycle Delivery Driver: LONGGA Modifier: LONGGA 1 <*> Procedure Knee Arthroscopy 1 <+> Stop 04/28/19 08:27:35 Motorcycle Delivery Driver: LONGGA Modifier: LONGGA 1 <*> Procedure Knee Arthroscopy 1 <*> Additional Procedure Description RIGHT KNEE ARTHROSCOPY FOR RETROPATELLAR CHONDROPLASTY AND PARTIAL MENISCECTOMY 04/28/19 08:21:54 Motorcycle Delivery Driver: LONGGA Modifier: LONGGA 1 <*> Procedure Knee Arthroscopy 1 <*> Additional Procedure Description LEFT KNEE ARTHROSCOPY FOR RETROPATELLAR CHONDROPLASTY AND PARTIAL MENISCECTOMY [facility] IntraOp Temp Regulation Devices Entry 1 Temp Regulation Temperature Forced Air Warming Regulation Device device Temperature 4765 Regulation Device Serial/Unit Number Temperature Upper body Regulation Site Temperature FARRAH MANE, CONTACT CENTER SPECIALIST Regulation Device Applied by Last Modified By: [...] 08:31:38 [facility] IntraOp Tourniquet Audit 04/28/19 08:31:38 Motorcycle Delivery Driver: EMBER Modifier: EMBER <+> 1 Stop Time Case Comments <None> Finalized By: ARIA MELCHOR, RN Document Signatures Signed By: ARIA MELCHOR RN 04/28/19 08:39 Electronically signed by May [facility] Conversion Needle Loom Tender Cerner at 07/23/2022 4:21 PM CDT documented in this encounter Plan of Treatment Not on file documented as of this encounter Visit Diagnoses Not on filedocumented in this encounter Care Teams Drywall Installer Relationship Specialty Start Date End Date Leslee, Provider Not In The System, [place] [address] PCP - General 04/16/23 documented as of this encounter
--- OUTSIDE RECORDS SUMMARY | 2024-12-26 11:07 | XMS_ITS | Encounter Summary ---
Author Organization Healthcare Address [address] [place] [address] Care Team Providers Care Core Cleaner Name Role Phone Timothy Granda DO Primary Care Provider [phone] Sadia Campo GRINDER SET UP OPERATOR GEAR TOOL Unavailable Unavailable Encounter Details Date Type Department Care Team (Late st Contact Info) Description 07/24/2023 Lab Requisition [facility] [address] [place] [address] Miky Coleman MD [address] [facility] [address] [place] [address] Encounter for general adult medical [...] place to sleep or slept in a detention (including now)? Patient refused 07/23/2023 CAGE ASSESSMENT [...] drink first t mini in the morning (EYE-QUALITY ASSURANCE GROUP LEADER) to steady your nerves or to get [...] Month) No 07/27/2023 8:00 PM EDT David Vernon, SPENCER 2. Non-Specific Active Suicidal Thoughts (Past 1 Month) No 07/27/2023 8:00 PM EDT David Vernon RN 6. Suicidal Behavior (Lifetime) No 07/27/2023 8:00 PM EDT David Vernon RN documented as of this encounter Plan of Treatment Upcoming Encounters Date Type Department Care Team (Late st Contact Info) Description 01/19/2025 10:00 AM EDT Office Visit [facility] Nephrology, Bone & Mineral Metabolism [address] [facility], [address] [place] [address] Gutierrez Domínguez MD [address] [place] [address] documented as of this encounter Procedures Procedure Name Priority Date/Time Associated Diagnosis Comments MULTI DRUG RESISTANCE TEST Routine 07/23/2023 9:00 AM EDT Encounter for general adult medical examination without abnormal findings documented in this encounter Results * Multi Drug Resistance Test (07/23/2023 9:00 AM EDT) Culture No growth at day 1 07/25/2023 12:01 AM EDT HEALTHCARE LAB Swab (Nares and Renata Rectal) 07/23/2023 9:00 AM EDT 07/24/2023 4:19 AM EDT us Miky Coleman MD LAB MICROBIOLOGY - GEN ERAL ORDERABLES Final Result [facility] [address] [place] [address] documented in this encounter Visit Diagnoses Diagnosis [...] documented as of this encounter Care Teams Core Cleaner Relationship Specialty Start Date End Date Timothy Granda DO [address] [place] [address] PCP - General 05/25/23 Sadia Campo, GRINDER SET UP [place] [address] Control Inspector Grip Boss 08/03/22 06/21/24 documented as of this encounter
--- OUTSIDE RECORDS SUMMARY | 2024-12-26 11:07 | XMS_ITS | Encounter Summary ---
Author Organization [employer] ([place], [place], [place], [place]) Address [address] [place] [address] Care Team Providers Care Visual And Stock Associate Name Role Phone [facility], Provider Not In The System Primary Care Provider Unavailable Encounter Details Date Type Department Care Team (Late st Contact Info) Description 04/28/2019 Transcribed Document [facility] Family Medicine [address] [place] [address] ProviderJean-Claude MD [address] [place], [place] [id number] Social History Tobacco Use Types Packs/Day Years Used Date Smoking Tobacco: Never Assessed Comments Unknown Sex and Gender Information Value Date Recorded Sex Assigned at Not on file Legal Sex Female 5:42 PM CDT Gender Identity Not on file Sexual Orientation Not on file documented as of this encounter Miscellaneous Notes * Cerner Conversion Note - Historical ProviderMD - 04/28/2019 8:05 AM CYTOTECHNOLOGIST ADI Main OR PostOp Summary Primary Physician: MADISON OSPINA MD-ORT Finalized Date/Time: 04/28/19 10:18:29 Pt. Name: MOISE ATKINSON/Sex: 1950 Female Med Rec #: [id number] Physician: MADISON OSPINA MD-ORT Financial #: [id number] Pt. Type: O Room/Bed: Admit/Disch: 04/28/19 05:30:00 - Institution: [facility] Main OR PostOp Case Times Entry 1 In PACU II 04/28/19 09:36:00 Ready for PACU II 04/28/19 10:15:00 Discharge Discharge from PACU 04/28/19 10:15:00 II Last Modified By: Shanel Conrad RN 04/28/19 10:18:24 Finalized By: Shanel Conrad, RN Document Signatures Signed By: Shanel Conrad RN 04/28/19 10:18 Electronically signed by May [facility] Conversion Refund Specialist Cerner at 07/23/2022 4:27 PM CDT documented in this encounter Plan of Treatment Not on file documented as of this encounter Visit Diagnoses Not on filedocumented in this encounter Care Teams Visual And Stock Associate Relationship Specialty Start Date End Date [facility], Provider Not In The System, [place] [address] PCP - General 04/16/23 documented as of this encounter
--- OUTSIDE RECORDS SUMMARY | 2024-12-26 11:07 | XMS_ITS | Encounter Summary ---
Author Organization [employer] ([place], [place], [place], [place]) Address [address] [place] [address] Care Team Providers Care Paver Name Role Phone [facility], Provider Not In The System Primary Care Provider Unavailable Encounter Details Date Type Department Care Team (Late st Contact Info) Description 04/28/2019 Transcribed Document [facility] Family Medicine [facility] [place] [address] ProviderJean-Claude MD [address] [place], [place] [id number] Social History Tobacco Use Types Packs/Day Years Used Date Smoking Tobacco: Never Assessed Comments Unknown Sex and Gender Information Value Date Recorded Sex Assigned at Not on file Legal Sex Female 5:42 PM CDT Gender Identity Not on file Sexual Orientation Not on file documented as of this encounter Miscellaneous Notes * Cerner Conversion Note - Historical ProviderMD - 04/28/2019 7:06 AM SHUTTLE REPAIRER Pre Procedure Adult Entered On: 04/28/2019 7:12 EST Performed On: 04/28/2019 7:06 EST by ISAMAR MORRISON RN Height and Weight, Clinical Dosing Height Source : Stated Height Entry Format : [place] Height, Feet : 5 ft(Converted to: 152 cm, 60 Inch) Height, Inches : 2 Inch(Converted to: 0 ft 2 Inch, 5.08 cm) Clinical Height : 157.48 cm Weight Source : Standing scale Weight Entry Format : [place] Clinical Dosing Weight : 85 kg Weight, Pounds : 187 lb Body Surface Area (BSA) : 1.86 m2 Body Mass Index : 34.3 kg/m2 (HI) [place] Body Weight : 50 kg ISAMAR MORRISON [...] ISAMAR MORRISON RN - 04/28/2019 7:06 EST [place] Suicide Severity Rating Scale (C-SSRS) CSSRS Past [...] Obtained From : Patient Primary Language : Botswanan Preferred Communication Mode : Verbal Communication Barrier [...] Scale Risk Level : 0-24 Low Risk [place] Fall Interventions : Bed in low position, [...] on filedocumented in this encounter Care Teams Paver Relationship Specialty Start Date End Date Leslee, Provider Not In The System, [place] [address] PCP - General 04/16/23 documented as of this encounter
--- OUTSIDE RECORDS SUMMARY | 2024-12-26 11:07 | XMS_ITS | Encounter Summary ---
Author Organization [facility] Address [address] [facility], [address] [place] [address] Care Team Providers Care Residential Electrician Name Role Phone Unavailable Primary Care Provider Unavailabl e Reason for Visit * Reason Onset Date Comments Surgery Scheduling 12/08/2024 Encounter Details Date Type Department Care Team (Late st Contact Info) Description 12/08/2024 Telephone [facility], [place] [address] Sharon Paulino MD [address] [place] [address] [address] [place] [address] Surgery Scheduling Social History Tobacco [...]
--- OUTSIDE RECORDS SUMMARY | 2024-12-26 11:07 | XMS_ITS | Encounter Summary ---
Author Organization [employer] ([place], [place], [place], [place]) Address [address] [place] [address] Care Team Providers Care Virtual Customer Assistant Name Role Phone [facility], Provider Not In The System Primary Care Provider Unavailable Encounter Details Date Type Department Care Team (Late st Contact Info) Description 04/28/2019 Transcribed Document [facility] Family Medicine [address] [place] [address] ProviderJean-Claude MD [address] [place], [place] [id number] Social History Tobacco Use Types Packs/Day Years Used Date Smoking Tobacco: Never Assessed Comments Unknown Sex and Gender Information Value Date Recorded Sex Assigned at Not on file Legal Sex Female 5:42 PM CDT Gender Identity Not on file Sexual Orientation Not on file documented as of this encounter Miscellaneous Notes * Cerner Conversion Note - Historical ProviderMD - 04/28/2019 8:29 AM AUTOMATION CONSULTANT Pain Assessment Entered On: 04/28/2019 9:28 EST [...] on filedocumented in this encounter Care Teams Virtual Customer Assistant Relationship Specialty Start Date End Date Sjh, Provider Not In The System, [place] [address] PCP - General 04/16/23 documented as of this encounter
--- OUTSIDE RECORDS SUMMARY | 2024-12-26 11:08 | XMS_ITS | Encounter Summary ---
Author Organization [facility] Address [address] [place] [address], [address] [place] [address] Care Team Providers Care Tube Cutter Name Role Phone Unavailable Primary Care Provider Unavailabl e Reason for Visit * Reason Onset Date Comments Care Coordination 11/21/2024 Nurse navigato r Encounter Details Date Type Department Care Team (Late st Contact Info) Description 11/21/2024 Telephone [facility] Orthopedic and Sports Medicine [place] [phone] Willa Lan RN Care Coordination (Nurse navigator) [...]
--- OUTSIDE RECORDS SUMMARY | 2024-12-26 11:08 | XMS_ITS | Encounter Summary ---
Author Organization [facility] Address [address] [facility], [address] [place] [address] Care Team Providers Care Assembler 1St Shift Name Role Phone Unavailable Primary Care Provider Unavailabl e Reason for Visit * Reason Onset Date Comments Surgery Scheduling 11/20/2024 LT SHDLR Encounter Details Date Type Department Care Team (Late st Contact Info) Description 11/20/2024 Telephone [facility] [address] [facility] [address] [place] [phone] [place] [address] [place] [address] [address] [place] [address] Surgery Scheduling (LT SHDLR) Social [...]
--- OUTSIDE RECORDS SUMMARY | 2024-12-26 11:08 | XMS_ITS | Encounter Summary ---
Author Organization Healthcare Address [address] [place] [address] Care Team Providers Care Superintendent Oil Well Services Name Role Phone Chandra Leahy MD Primary Care Provider [phone] Timothy Granda DO Primary Care Provider [phone] Sadia Campo SALESPERSON BOOKS Unavailable Unavailable Encounter Details Date Type Department Care Team (Late st Contact Info) Description 08/14/2022 Lab Requisition [facility] [address] [place] [address] Dilip Lloyd MD [address] [address] Encounter for general adult medical [...] drink first t mini in the morning (EYE-SECURITY TRAINER) to steady your nerves or to get [...] 01/19/2025 10:00 AM EDT Office Visit [facility] Nephrology, Bone & Mineral Metabolism [address] [facility], [address] [place] [address] Gutierrez Domínguez MD [address] [place] [address] documented as of this encounter Procedures [...] - GENERAL ORDERABLES Final Result [facility] [address] [place] [address] documented in this encounter Visit Diagnoses Diagnosis Encounter for general adult medical examination without abnormal findings documented in this encounter Additional Health Concerns Infection Onset Date Last Indicated Resolved Time COVID-19 Rule-Out 07/22/2023 07/22/2023 07/22/2023 12:14 PM EDT C. difficile Rule-Out 07/26/2023 08/01/20232023 1:07 AM EDT Gastrointestinal Rule-Out 08/02/2023 08/01/2023 3:00 AM EDT documented as of this encounter Care Teams Superintendent Oil Well Services Relationship Specialty Start Date End Date Chandra Leahy MD [address] [place] [address] PCP - General 08/02/22 05/24/23 Timothy Granda DO [address] [place] [address] PCP - General 05/25/23 [place] [address] Skiver Blockers Patent Solicitor 08/03/22 06/21/24 documented as of this encounter
--- OUTSIDE RECORDS SUMMARY | 2024-12-26 11:08 | XMS_ITS | Clinical Summary ---
Author Organization [facility] [place] [facility] Address [address] [place] [address] Phone Care Team Providers Care Video And Sound Recorder Name Role Phone Unavailable Primary Care Provider [...] mouth daily. 30 Tablet 5 5 Active DULoxetine (CYMBALTA) 60 mg Oral Capsule, Delayed Release(E.C.) TAKE 2 CAPSULES BY MOUTH ONCE DAILY 60 Capsule 5 Active DULoxetine (CYMBALTA) 60 mg Oral Capsule, Delayed Release(E.C.) TAKE 2 CAPSULES BY MOUTH ONCE DAILY 60 Capsule 3 5 025 Discontinued Active Problems No known [...]
--- OUTSIDE RECORDS SUMMARY | 2024-12-26 11:08 | XMS_ITS | Clinical Summary ---
Author Organization Healthcare Address [address] [place] [address] Care Team Providers Care Air Force Senior Officer Name Role Phone Timothy Granda DO Primary Care Provider [phone] Allergies Active Allergy Reactions Criticality Noted Date [...] dysphagia like symptoms especially with PO medications Paroxysmal atrial fibrillation 08/07/2022 Overview (08/22/2022): Resume [...] 08/18/2022 Overview (08/15/2022): - replete as necessary Severe protein-calorie malnutrition 08/14/2022 12/21/2024 Overview (09/17/2023): PICC and TPN Enteral tube feeds via GJ Cecal volvulus 08/13/2022 09/04/2022 Overview (08/22/2022): GI [...] preservative free 02/14/2015 Influenza, trivalent, adjuvanted 12/22/2019 [place] COVID-19 Vaccine (Blue Cap) 18+ 06/10/19 Moderna COVID-19 Vaccine (Re d Cap) 12+ years 07/18/2021,01/27/2021 Moderna COVID-19 Vaccine Bivalent 6months+ 01/25 PPD Skin Test (TB Skin Test) 09/04/2022 [email or web address] Covid-19 Vaccine 12y+ , Mahesh Protein, PF, [...] drink first t mini in the morning (EYE-3RD PRESSMAN) to steady your nerves or to get [...] 11/20/2023 11:12 AM EDT Plan of Treatment Upcoming Encounters Date Type Department Care Team (Late st Contact Info) Description 01/19/2025 10:00 AM EDT [facility] Nephrology, Bone & Mineral Metabolism [address] [facility], [address] [place] [address] Gutierrez Domínguez MD [address] [place] [address] Health Maintenance Due Date Last Done Comments [...] (AWV) 03/13/2023 03/13/2022 [facility]-Depression Screening 03/27/2024 03/27/2023 MEV-UYYOX-18 Vaccine ( season) 2024 02/20/2024, 02/09/2023, 01/25/2022, Additional history exists [facility]-Influenza Vaccine (#1) 12/01/202402/19, 02/09/2023, 01/25/2022, Additional history exists Sigmoidoscopy 02/22/2028 02/21/2023, 02/21/2023 Colonoscopy 08/08/2032 08/08/2022, 05/0 10/2022, 12/07/2017 [facility]-Colorectal Cancer Screening 08/08/2032 [facility]-Hepatitis C Screening Completed 2023, 08/03/2022, 12/15/2021 [facility]-RSV Vaccine: 60+ Years or Completed 02/20/2024 HPV Vaccines Aged Out No longer eligi [...] IgM Negative Negative 08/02/2023 7:49 PM EDT [facility] Hepatitis B Core Antibody IgM Negative Negative 08/02/2023 7:49 PM EDT [facility] Blood Venous blood specimen / Unknown Venipuncture / Unknown 08/02/2023 2:56 PM EDT 08/02/2023 3:22 PM EDT Narrative HEALTHCARE LAB - 08/02/2023 7:49 PM EDT [...] ORDERABLES Final R esult Performing Organization Address City/State/[facility] Co de Phone Number [facility] [address] [place] [phone] * Flexible Sigmoidoscopy (02/21/2023 10:25 AM EST) [...] Olivier MD Anesthesiologist Misti Page MD Adam Rooks MD Proceduralist residential real estate assistant Adama Montes, VEST BASTER Chika Peterson RN Endo Nurse Butch Little MD Fellow Tete Whitmore Endo Lab Director Preprocedure A history and physical has been [...] of bowel preparation was evaluated using the Pattison Bowel Preparation Scale with scores of: left [...] of bowel preparation was evaluated using the Pattison Bowel Preparation Scale with scores of: right [...] Most Recently Relevant to Health Maintenance Insurance Prem [place] [phone] [facility] MEDICARE Advance Directives * Full Code (Latest [...] Patient has decision-making capacity? Yes Care Teams Air Force Senior Officer Relationship Specialty Start Date End Date Timothy Granda DO [address] [place] [address] PCP - General 05/25/23
--- OUTSIDE RECORDS SUMMARY | 2024-12-26 11:08 | XMS_ITS | Encounter Summary ---
Author Organization [facility] Address [address] [facility], [address] [place] [address] Care Team Providers Care Market Analyst Name Role Phone Unavailable Primary Care Provider Unavailabl e Encounter Details Date Type Department Care Team (Latest Contact Info) Description 11/05/2024 Prep for Procedure [facility] Orthopedic and Sports Medicine [address] [place] [address] [place] History of total replacement of left shoulder [...]
== END 2024-12-24 23:59 ==
LOC: LAB.DROPOF 12-26 11:04
PROVIDERS: PCP Family Medicine; Visit Provider Family Medicine
DX: N18.9 Chronic kidney disease, unspecified (principal)
CPT/HCPCS: 80053; 85025

== ENCOUNTER 2025-01-08 13:50 | Outpatient (CLI) | payer MEDICARE, SELFPAY ==
--- OUTSIDE RECORDS SUMMARY | 2025-01-09 02:09 | XMS_ITS | Encounter Summary ---
Author Organization [facility] Address [address] [place] [id number] Care Team Providers Care Heart Doctor Name Role Phone GabrielTimothy armenta Primary Care Provider [phone] Reason for Visit * Reason Comments Med Refill Encounter Details Date Type Department Care Team (Late st Contact Info) Description 12/22/2021 Refill [facility] FAMILY MEDICINE [address] [place] [address] Connor Nunez MD [address] [place] [address] Chronic arthritis associated with viral [...] documented as of this encounter Care Teams Heart Doctor Relationship Specialty Start Date End Date Timothy Granda DO [address] [place] [address] [place] [address] PCP - General Internal Medicine 06/12/23 documented as of this encounter
--- OUTSIDE RECORDS SUMMARY | 2025-01-09 02:09 | XMS_ITS | Encounter Summary ---
Author Organization [employer] ([place], [place], [place], [place]) Address [address] [place] [address] Care Team Providers Care Polisher Implant Name Role Phone [facility], Provider Not In The System Primary Care Provider Unavailable Encounter Details Date Type Department Care Team (Late st Contact Info) Description 04/28/2019 Transcribed Document [facility] [place] [facility] [address] [place] [address] ProviderJean-Claude MD [address] [place] [phone] Social History Tobacco Use Types Packs/Day Years Used Date Smoking Tobacco: Never Assessed Comments Unknown Sex and Gender Information Value Date Recorded Sex Assigned at Not on file Legal Sex Female 5:42 PM CDT Gender Identity Not on file Sexual Orientation Not on file documented as of this encounter Miscellaneous Notes * Cerner Conversion Note - Historical ProviderMD - 04/28/2019 10:01 AM UNDERWRITING SUPPORT SPECIALIST [place] [id number] MOISE PANDEY :1950 Visit Time:04/28/2019 What to do next Your Diagnosis Pain in unspecified knee, Pain in unspecified knee Instructions From Your Care Team No driving or legal decision for 24 hours after anesthesia. may advance diet as tolerated. May take Bartlett 10-325mg 1 tablet by mouth every 4-6 [...] Comments Appointment has been made Where: [address] [facility] [address] [place] [address]- Medications What How Much When Instructions Next [...] activities are safe for you. ??? Take ekjv-cdh-xppkyyt and prescription medicines only as told by [...] 06/25/2001 Document Revised: 11/02/2017 Document Reviewed: 11/02/2017 [employer] Patient Education ?? 2019 [employer] Knee Arthroscopy, Care After Refer to [...] activities are safe for you. ??? Perform egzuv-bl-svfxut exercises only as directed by your health [...] 10/06/2005 Document Revised: 08/18/2016 Document Reviewed: 03/15/2015 [employer] Patient Education ?? 2018 THYME. acetaminophen and hydrocodone (a SEET a MIN oh fen and ladonna droe KOE done) Hycet, Lorcet, Bartlett, Verdrocet, Vicodin, Xodol, Zamicet What is the [...] may report side effects to FDA at 8-028-JZZ-3158. What other drugs will affect acetaminophen and [...] affect acetaminophen and hydrocodone, including prescription and ipuo-xer-qdhrsxe medicines, vitamins, and herbal products. Not all [...] to ensure that the information provided by [employer]. ('[employer]') is accurate, up-to-date, and complete, but no guarantee is made to that effect. Drug information contained herein may be time sensitive. [employer] information has been compiled for use by healthcare practitioners and consumers in the [place] and therefore [employer] does not warrant that uses outside of the [place] are appropriate, unless specifically indicated otherwise. [employer] drug information does not endorse drugs, diagnose patients or recommend therapy. [employer]ish drug information is an informational resource designed [...] effective or appropriate for any given patient. [employer] does not assume any responsibility for any aspect of healthcare administered with the aid of information [employer] provides. The information contained herein is not intended to cover all possible uses, directions, precautions, warnings, drug interactions, allergic reactions, or adverse effects. If you have questions about the drugs you are taking, check with your doctor, nurse or pharmacist. Copyright 1616-9946 [employer]. Version: 15.02. Revision Date: 02/04/2018. Emergency Awareness [...] Assistance with quitting is available by contacting 7-235-PVFF-NOW. This is a free resource providing counseling, [...] was given the opportunity to ask questions. Patient/Asic Verification Engineer Name: Patient/Asic Verification Engineer Signature: Relationship to Patient: Clinician/Hospital Asic Verification Engineer Signature: Date: documented in this encounter Plan of Treatment Not on file documented as of this encounter Visit Diagnoses Not on filedocumented in this encounter Care Teams Polisher Implant Relationship Specialty Start Date End Date Deejay, Provider Not In The System, [place] [address] PCP - General 04/16/23 documented as of this encounter
--- OUTSIDE RECORDS SUMMARY | 2025-01-09 02:09 | XMS_ITS | Encounter Summary ---
Author Organization [employer] ([place], [place], [place], [place]) Address [address] [place] [address] Care Team Providers Care Paint Prepper Name Role Phone [facility], Provider Not In The System Primary Care Provider Unavailable Encounter Details Date Type Department Care Team (Late st Contact Info) Description 04/28/2019 Transcribed Document [facility] [place] Formerly [facility] [place] [address] ProviderJean-Claude MD [address], [place] [id number] Social History Tobacco Use Types Packs/Day Years Used Date Smoking Tobacco: Never Assessed Comments Unknown Sex and Gender Information Value Date Recorded Sex Assigned at Not on file Legal Sex Female 5:42 PM CDT Gender Identity Not on file Sexual Orientation Not on file documented as of this encounter Miscellaneous Notes * Cerner Conversion Note - Historical ProviderMD - 04/28/2019 7:06 AM TRAVEL ACCOMMODATION INSPECTOR Pre Procedure Adult Entered On: 04/28/2019 7:12 EST Performed On: 04/28/2019 7:06 EST by ISAMAR MORRISON RN Height and Weight, Clinical Dosing Height Source : Stated Height Entry Format : [place] Height, Feet : 5 ft(Converted to: 152 cm, 60 Inch) Height, Inches : 2 Inch(Converted to: 0 ft 2 Inch, 5.08 cm) Clinical Height : 157.48 cm Weight Source : Standing scale Weight Entry Format : [place]ks Clinical Dosing Weight : 85 kg Weight, Pounds : 187 lb Body Surface Area (BSA) : 1.86 m2 Body Mass Index : 34.3 kg/m2 ([place]) [place] Body Weight : 50 kg ISAMAR MORRISON [...] ISAMAR MORRISON RN - 04/28/2019 7:06 EST [place] Suicide Severity Rating Scale (C-SSRS) CSSRS Past [...] Obtained From : Patient Primary Language : Zimbabwean Preferred Communication Mode : Verbal Communication Barrier [...] Scale Risk Level : 0-24 Low Risk Bondurant Fall Interventions : Bed in low position, [...] form. Electronically signed by Leslee Olvera Conversion Enhanced Environmental Operator Cerner at 07/23/2022 4:25 PM CDT documented in this encounter Plan of Treatment Not on file documented as of this encounter Visit Diagnoses Not on filedocumented in this encounter Care Teams Paint Prepper Relationship Specialty Start Date End Date Leslee, Provider Not In The System, [place] [address] PCP - General 04/16/23 documented as of this encounter
--- OUTSIDE RECORDS SUMMARY | 2025-01-09 02:09 | XMS_ITS | Encounter Summary ---
Author Organization [employer] ([place], [place], [place], [place]) Address [address] [place] [address] Care Team Providers Care Forge Hand Name Role Phone [facility], Provider Not In The System Primary Care Provider Unavailable Encounter Details Date Type Department Care Team (Late st Contact Info) Description 04/28/2019 Transcribed Document [facility] [place] [address] [place] [address] ProviderJean-Claude MD [address], [place] [phone] Social History Tobacco Use Types Packs/Day Years Used Date Smoking Tobacco: Never Assessed Comments Unknown Sex and Gender Information Value Date Recorded Sex Assigned at Not on file Legal Sex Female 5:42 PM CDT Gender Identity Not on file Sexual Orientation Not on file documented as of this encounter Miscellaneous Notes * Cerner Conversion Note - Historical ProviderMD - 04/28/2019 8:29 AM ACDS BLOCK 1 OPERATOR Pain Assessment Entered On: 04/28/2019 9:28 [...] on filedocumented in this encounter Care Teams Forge Hand Relationship Specialty Start Date End Date Sjh, Provider Not In The System, [place] [address] PCP - General 04/16/23 documented as of this encounter
--- OUTSIDE RECORDS SUMMARY | 2025-01-09 02:09 | XMS_ITS | Encounter Summary ---
Author Organization [employer] ([place], [place], [place], [place]) Address [address] [place] [address] Care Team Providers Care Concession Attendant Name Role Phone [facility], Provider Not In The System Primary Care Provider Unavailable Encounter Details Date Type Department Care Team (Late st Contact Info) Description 04/28/2019 Transcribed Document [facility] [place] [address] [place] [address] ProviderJean-Claude MD [address], [place] [phone] Social History Tobacco Use Types Packs/Day Years Used Date Smoking Tobacco: Never Assessed Comments Unknown Sex and Gender Information Value Date Recorded Sex Assigned at Not on file Legal Sex Female 5:42 PM CDT Gender Identity Not on file Sexual Orientation Not on file documented as of this encounter Miscellaneous Notes * Cerner Conversion Note - Historical ProviderMD - 04/28/2019 9:51 AM FIRE PREVENTION INSPECTOR [place] [id number] MOISE PANDEY :1950 Visit Time:04/28/2019 What to do next Your Diagnosis Pain in unspecified knee, Pain in unspecified knee Instructions From Your Care Team No driving or legal decision for 24 hours after anesthesia. may advance diet as tolerated. May take Alpha 10-325mg 1 tablet by mouth every 4-6 [...] Within 2 to 3 days Where: [address] [facility] [facility] [address] [place] [address]- Medications What How Much When Instructions Next [...] activities are safe for you. ??? Take awif-qma-hnouoik and prescription medicines only as told by [...] 06/25/2001 Document Revised: 11/02/2017 Document Reviewed: 11/02/2017 [employer] Interactive Patient Education ?? 2019 [employer] Knee Arthroscopy, Care After Refer to [...] activities are safe for you. ??? Perform simqf-eq-vxehbw exercises only as directed by your health [...] 10/06/2005 Document Revised: 08/18/2016 Document Reviewed: 03/15/2015 [employer] Interactive Patient Education ?? 2018 [employer]. acetaminophen and hydrocodone (a SEET a MIN oh fen and ladonna droe KOE done) Hycet, Lorcet, Alpha, Verdrocet, Vicodin, Xodol, Zamicet What is the [...] may report side effects to FDA at 4-060-EAT-0299. What other drugs will affect acetaminophen and [...] affect acetaminophen and hydrocodone, including prescription and jutv-xdx-bxtpvcy medicines, vitamins, and herbal products. Not all [...] to ensure that the information provided by [employer]. ('[employer]') is accurate, up-to-date, and complete, but no guarantee is made to that effect. Drug information contained herein may be time sensitive. [employer] information has been compiled for use by healthcare practitioners and consumers in the [place] and therefore [employer] does not warrant that uses outside of the [place] are appropriate, unless specifically indicated otherwise. [employer] drug information does not endorse drugs, diagnose patients or recommend therapy. [employer] drug information is an informational resource designed [...] effective or appropriate for any given patient. [employer] does not assume any responsibility for any aspect of healthcare administered with the aid of information [employer] provides. The information contained herein is not intended to cover all possible uses, directions, precautions, warnings, drug interactions, allergic reactions, or adverse effects. If you have questions about the drugs you are taking, check with your doctor, nurse or pharmacist. Copyright 5838-9370 [employer]. Version: 15.02. Revision Date: 02/04/2018. Emergency Awareness [...] Assistance with quitting is available by contacting 9-362-IWTG-NOW. This is a free resource providing counseling, [...] was given the opportunity to ask questions. Patient/Supervisor Vendor Quality Name: Patient/Supervisor Vendor Quality Signature: Relationship to Patient: Clinician/Hospital Supervisor Vendor Quality Signature: Date: Electronically signed by Leslee Olvera Conversion Construction Code Administrator Cerner at 07/23/2022 4:31 PM CDT documented in this encounter Plan of Treatment Not on file documented as of this encounter Visit Diagnoses Not on filedocumented in this encounter Care Teams Concession Attendant Relationship Specialty Start Date End Date Leslee, Provider Not In The System, [place] [address] PCP - General 04/16/23 documented as of this encounter
--- OUTSIDE RECORDS SUMMARY | 2025-01-09 02:09 | XMS_ITS | Clinical Summary ---
Author Organization [employer] ([place], [place], [place], [place]) Address [address] [place] [address] Care Team Providers Care Ceiling Cleaner Name Role Phone [facility] [...] Date Dereje rded Speak language other than Icelandic at home Not on file 04/12/2023 Want [...] - 1-dose 75+ series) 09/26/2026 Care Teams Ceiling Cleaner Relationship Specialty Start Date End Date [facility], Provider Not In The System, [place] [address] PCP - General 04/16/23
--- OUTSIDE RECORDS SUMMARY | 2025-01-09 02:09 | XMS_ITS | Encounter Summary ---
Author Organization [employer] ([place], [place], [place], [place]) Address [address] [place] [address] Care Team Providers Care Technical Clerk Name Role Phone [facility], Provider Not In The System Primary Care Provider Unavailable Encounter Details Date Type Department Care Team (Late st Contact Info) Description 04/28/2019 Transcribed Document [facility] [place] Count [facility] [address] ProviderJean-Claude MD [address], [place] [phone] Social History Tobacco Use Types Packs/Day Years Used Date Smoking Tobacco: Never Assessed Comments Unknown Sex and Gender Information Value Date Recorded Sex Assigned at Not on file Legal Sex Female 5:42 PM CDT Gender Identity Not on file Sexual Orientation Not on file documented as of this encounter Miscellaneous Notes * Cerner Conversion Note - Jean-Claude ProviderMD - 04/28/2019 9:04 AM GENERATION MECHANIC HELPER DATE OF PROCEDURE: 04/28/2019 SURGEON: Timothy Foster [...] to the recovery room in satisfactory condition. /[id number] MD MICHAEL Trujillo/AQ / MICHAEL / MODL /[id number] documented in this encounter Plan of Treatment Not on file documented as of this encounter Visit Diagnoses Not on filedocumented in this encounter Care Teams Technical Clerk Relationship Specialty Start Date End Date Leslee, Provider Not In The System, [place] [address] PCP - General 04/16/23 documented as of this encounter
--- OUTSIDE RECORDS SUMMARY | 2025-01-09 02:09 | XMS_ITS | Encounter Summary ---
Author Organization [employer] ([place], [place], [place], [place]) Address [address] [place] [address] Care Team Providers Care Licensed And Certified Midwife Name Role Phone [facility], Provider Not In The System Primary Care Provider Unavailable Encounter Details Date Type Department Care Team (Late st Contact Info) Description 04/28/2019 Transcribed Document [facility] [place] [facility] [place] [address] ProviderJean-Claude MD [facility] [place], [place] [phone] Social History Tobacco Use Types Packs/Day Years Used Date Smoking Tobacco: Never Assessed Comments Unknown Sex and Gender Information Value Date Recorded Sex Assigned at Not on file Legal Sex Female 5:42 PM CDT Gender Identity Not on file Sexual Orientation Not on file documented as of this encounter Miscellaneous Notes * Cerner Conversion Note - Historical ProviderMD - 04/28/2019 8:29 AM SOFT BOARDER Pain Assessment Entered On: 04/28/2019 9:06 EST [...] on filedocumented in this encounter Care Teams Licensed And Certified Midwife Relationship Specialty Start Date End Date Leslee, Provider Not In The System, [place] [address] PCP - General 04/16/23 documented as of this encounter
--- OUTSIDE RECORDS SUMMARY | 2025-01-09 02:09 | XMS_ITS | Encounter Summary ---
Author Organization [employer] ([place], [place], [place], [place]) Address [address] [place] [address] Care Team Providers Care Tow Motor Mechanic Name Role Phone [facility], Provider Not In The System Primary Care Provider Unavailable Encounter Details Date Type Department Care Team (Late st Contact Info) Description 04/28/2019 Transcribed Document [facility] [place] [facility] [place] [address] ProviderJean-Claude MD [address] [place], [place] [phone] Social History Tobacco Use Types Packs/Day Years Used Date Smoking Tobacco: Never Assessed Comments Unknown Sex and Gender Information Value Date Recorded Sex Assigned at Not on file Legal Sex Female 5:42 PM CDT Gender Identity Not on file Sexual Orientation Not on file documented as of this encounter Miscellaneous Notes * Cerner Conversion Note - Jean-Claude ProviderMD - 04/28/2019 9:47 AM DETECTIVE SERGEANT Patient Education Materials Follows: General Anesthesia, Adult, [...] activities are safe for you. ??? Take gtvd-mnv-wiihque and prescription medicines only as told by [...] 06/25/2001 Document Revised: 11/02/2017 Document Reviewed: 11/02/2017 [employer] Interactive Patient Education ? 2019 [employer] Knee Arthroscopy, Care After Refer to [...] activities are safe for you. ??? Perform nagql-hh-zxvdai exercises only as directed by your health [...] 03/15/2015 Elsevier Interactive Patient Education ? 2018 [employer] documented in this encounter Plan of Treatment Not on file documented as of this encounter Visit Diagnoses Not on filedocumented in this encounter Care Teams Tow Motor Mechanic Relationship Specialty Start Date End Date Leslee, Provider Not In The System, [place] [address] PCP - General 04/16/23 documented as of this encounter
--- OUTSIDE RECORDS SUMMARY | 2025-01-09 02:09 | XMS_ITS | Encounter Summary ---
Author Organization [employer] ([place], [place], [place], [place]) Address [address] [place] [address] Care Team Providers Care Rat Breeder Name Role Phone [facility], Provider Not In The System Primary Care Provider Unavailable Encounter Details Date Type Department Care Team (Late st Contact Info) Description 04/28/2019 Transcribed Document [facility] [place] [address] [place] [address] ProviderJean-Claude MD [address], [place] [phone] Social History Tobacco Use Types Packs/Day Years Used Date Smoking Tobacco: Never Assessed Comments Unknown Sex and Gender Information Value Date Recorded Sex Assigned at Not on file Legal Sex Female 5:42 PM CDT Gender Identity Not on file Sexual Orientation Not on file documented as of this encounter Miscellaneous Notes * Cerner Conversion Note - Historical ProviderMD - 04/28/2019 8:05 AM DUMPER CENTRAL CONCRETE MIXING PLANT [facility]I Main OR PACU Summary Primary Physician: MADISON OSPINA MD-ORShantel Finalized Date/Time: 04/28/19 09:40:55 Pt. Name: MOISE ATKINSON/Sex: 1950 Female Med Rec #: [id number] Physician: MADISON OSPINA MD-ORT Financial #: [id number] Pt. Type: O Room/Bed: Admit/Disch: 04/28/19 05:30:00 - Institution: [facility] OR PACU Case Times Entry 1 In PACU I 04/28/19 08:38:00 Ready for PACU 04/28/19 09:33:00 Discharge Discharge from PACU 04/28/19 09:33:00 I Last Modified By: Eduarda Patel Rn Patient Care Bedside 04/28/19 09:40:12 [facility] Main OR PACU Case Times Audit 04/28/19 09:40:12 Mobile Unit Assistant: SADE Modifier: SADE <+> 1 Ready for PACU Discharge <+> 1 Discharge from PACU I Finalized By: Eduarda Patel Rn Patient Care Bedside Document Signatures Signed By: Eduarda Patel Rn Patient Care Bedside 04/28/19 09:40 Electronically signed by May [facility] Conversion Soldering Machine Operator Cerner at 07/23/2022 4:28 PM CDT documented in this encounter Plan of Treatment Not on file documented as of this encounter Visit Diagnoses Not on filedocumented in this encounter Care Teams Rat Breeder Relationship Specialty Start Date End Date [facility], Provider Not In The System, [place] [address] PCP - General 04/16/23 documented as of this encounter
--- OUTSIDE RECORDS SUMMARY | 2025-01-09 02:09 | XMS_ITS | Encounter Summary ---
Author Organization [employer] ([place], [place], [place], [place]) Address [address] [place] [address] Care Team Providers Care Consulting Solution Manager Name Role Phone [facility], Provider Not In The System Primary Care Provider Unavailable Encounter Details Date Type Department Care Team (Late st Contact Info) Description 04/28/2019 Transcribed Document [facility] [place] [facility] [place] [address] ProviderJean-Claude MD [address], [place] [id number] Social History Tobacco Use Types Packs/Day Years Used Date Smoking Tobacco: Never Assessed Comments Unknown Sex and Gender Information Value Date Recorded Sex Assigned at Not on file Legal Sex Female 5:42 PM CDT Gender Identity Not on file Sexual Orientation Not on file documented as of this encounter Miscellaneous Notes * Cerner Conversion Note - Historical ProviderMD - 04/28/2019 8:05 AM LAYOUT ARTIST [facility] Main OR IntraOp Summary Primary Physician: MADISON OSPINA MD-ORT Finalized Date/Time: 04/28/19 08:39:15 Pt. Name: FARRAH ATKINSON D.O.B./Sex: 1950 Female Med Rec #: [id number] Physician: MADISON OSPINA MD-ORT Financial #: [id number] Pt. Type: O Room/Bed: Admit/Disch: 04/28/19 05:30:00 - [place] [facility] [place] Intra Case Attendance Entry 1 Entry 2 Entry 3 Case Attendee MADISON OSPINA MD-ORT WICKER, KAREN KIM, ARIA WATERS RN Role Performed Surgeon/Proceduralist, MANAGER SUPPORT SERVICES/Nurse Crane Operator Cab Personal Service Workers, First First Time In 04/28/19 07:39:00 04/28/19 [...] [facility] IntraOp Case Attendance Audit 04/28/19 08:34:51 Photo Finisher: LONGGA Modifier: LONGGA 1 <+> Time Out 1 <*> Procedure Knee Arthroscopy 2 <+> Time Out 2 <*> Procedure Knee Arthroscopy 3 <+> Time Out 3 <*> Procedure Knee Arthroscopy 4 <+> Time Out 4 <*> Procedure Knee Arthroscopy 5 <+> Time Out 5 <*> Procedure Knee Arthroscopy 04/28/19 08:07:14 Photo Finisher: LONGGA Modifier: LONGGA <+> 1 Time In [...] [facility] IntraOp Case Times Audit 04/28/19 08:34:50 Photo Finisher: LONGGA Modifier: LONGGA <+> 1 Out Room Time <+> 1 Stop Time 04/28/19 08:31:56 Photo Finisher: LONGGA Modifier: LONGGA <+> 1 Stop Time [...] IntraOp Departure from OR Audit 04/28/19 08:32:27 Photo Finisher: EMBER Modifier: LONGGA 1 <*> Patient Transport [...] RN 04/28/19 08:15:47 [facility] IntraOp General Case Senior Network Engineer 1 Case Information OR OR 05 [facility] Case Level 1 Room Verified Yes Wound Class I - Clean Specialty SN Orthopedic Anesthesia Type General ASA Class 3 Diagnosis Preop Diagnosis PATELLAR CHONDROMALACIA RIGHT KNEE Postop Same As Preop No Postop Diagnosis DICTATED BY Mary Last Modified By: ARIA MELCHOR RN 04/28/19 08:15:39 [facility] IntraOp General Case Data Audit 04/28/19 08:15:39 Photo Finisher: EMBER Modifier: LONGGA <+> 1 ASA Class [...] Entry 1 Medication/Irrigant epinephrine 30mg/30ml vial - [id number] Route of 3ML/3000ML OF NS Administration IRRIGATION [...] [facility] IntraOp Patient Positioning Audit 04/28/19 08:17:49 Photo Finisher: LONGGA Modifier: LONGGA 1 <*> Procedure Knee [...] [facility] IntraOp Surgical Procedures Audit 04/28/19 08:31:50 Photo Finisher: LONGGA Modifier: LONGGA 1 <*> Procedure Knee Arthroscopy 1 <+> Stop 04/28/19 08:27:35 Photo Finisher: LONGGA Modifier: LONGGA 1 <*> Procedure Knee Arthroscopy 1 <*> Additional Procedure Description RIGHT KNEE ARTHROSCOPY FOR RETROPATELLAR CHONDROPLASTY AND PARTIAL MENISCECTOMY 04/28/19 08:21:54 Photo Finisher: LONGGA Modifier: LONGGA 1 <*> Procedure Knee Arthroscopy 1 <*> Additional Procedure Description LEFT KNEE ARTHROSCOPY FOR RETROPATELLAR CHONDROPLASTY AND PARTIAL MENISCECTOMY [facility] IntraOp Temp Regulation Devices Entry 1 Temp Regulation Temperature Forced Air Warming Regulation Device device Temperature 4765 Regulation Device Serial/Unit Number Temperature Upper body Regulation Site Temperature FARRAH MANE, MANAGER SUPPORT SERVICES Regulation Device Applied by Last Modified By: [...] 08:31:38 [facility] IntraOp Tourniquet Audit 04/28/19 08:31:38 Photo Finisher: EMBER Modifier: EMBER <+> 1 Stop Time Case Comments <None> Finalized By: ARIA MELCHOR, RN Document Signatures Signed By: ARIA MELCHOR RN 04/28/19 08:39 Electronically signed by May [facility] Conversion Wax Ball Knock Out Worker Cerner at 07/23/2022 4:21 PM CDT documented in this encounter Plan of Treatment Not on file documented as of this encounter Visit Diagnoses Not on filedocumented in this encounter Care Teams Consulting Solution Manager Relationship Specialty Start Date End Date Leslee, Provider Not In The System, [place] [address] PCP - General 04/16/23 documented as of this encounter
--- OUTSIDE RECORDS SUMMARY | 2025-01-09 02:09 | XMS_ITS | Referral Summary ---
Author Organization [employer] ([place], [place], [place], [place]) Address [address] [place] [address] Care Team Providers Care Resource Paraprofessional Name Role Phone [facility], Provider Not In The System Primary [...] Date Dereje rded Speak language other than Bahraini at home Not on file 04/12/2023 Want [...] of Treatment Not on file Care Teams Resource Paraprofessional Relationship Specialty Start Date End Date [facility], Provider Not In The System, [place] [address] PCP - General 04/16/23
--- OUTSIDE RECORDS SUMMARY | 2025-01-09 02:09 | XMS_ITS | Encounter Summary ---
Author Organization [employer] ([place], [place], [place], [place]) Address [address] [place] [address] Care Team Providers Care Coding Specialist Home Health Name Role Phone [facility], Provider Not In The System Primary Care Provider Unavailable Encounter Details Date Type Department Care Team (Late st Contact Info) Description 04/28/2019 Transcribed Document [facility] [place] [address] [place] [address] ProviderJean-Claude MD [address] [place], [place] [phone] Social History Tobacco Use Types Packs/Day Years Used Date Smoking Tobacco: Never Assessed Comments Unknown Sex and Gender Information Value Date Recorded Sex Assigned at Not on file Legal Sex Female 5:42 PM CDT Gender Identity Not on file Sexual Orientation Not on file documented as of this encounter Miscellaneous Notes * [employer]ner Conversion Note - Historical ProviderMD - 04/28/2019 8:05 AM PLASMA PROCESSOR [facility] Main OR PostOp Summary Primary Physician: MADISON OSPINA MD-ORT Finalized Date/Time: 04/28/19 10:18:29 Pt. Name: MOISE ATKINSON/Sex: 1950 Female Med Rec #: [id number] Physician: MADISON OSPINA MD-ORT Financial #: [id number] Pt. Type: O Room/Bed: Admit/Disch: 04/28/19 05:30:00 - Institution: [facility] [place] Main [place] PostOp Case Times Entry 1 [...] on filedocumented in this encounter Care Teams Coding Specialist Home Health Relationship Specialty Start Date End Date [facility], Provider Not In The System, [place] [address] PCP - General 04/16/23 documented as of this encounter
--- OUTSIDE RECORDS SUMMARY | 2025-01-09 02:09 | XMS_ITS | Encounter Summary ---
Author Organization [employer] ([place], [place], [place], [place]) Address [address] [place] [address] Care Team Providers Care Geographical Historian Name Role Phone [facility], Provider Not In The System Primary Care Provider Unavailable Encounter Details Date Type Department Care Team (Late st Contact Info) Description 04/28/2019 Transcribed Document [facility] Family Medicine [address] [place] [address] ProviderJean-Claude MD [address], [place] [id number] Social History Tobacco Use Types Packs/Day Years Used Date Smoking Tobacco: Never Assessed Comments Unknown Sex and Gender Information Value Date Recorded Sex Assigned at Not on file Legal Sex Female 5:42 PM CDT Gender Identity Not on file Sexual Orientation Not on file documented as of this encounter Miscellaneous Notes * Cerner Conversion Note - Historical ProviderMD - 04/28/2019 8:05 AM RN CASE MANAGER HOSPICE ADI Main OR PreOp Summary Primary Physician: MADISON OSPINA MD-ORT Finalized Date/Time: 04/28/19 09:32:12 Pt. Name: MOISE ATKINSON/Sex: 1950 Female Med Rec #: [id number] Physician: MADISON OSPINA MD-ORT Financial #: [id number] Pt. Type: O Room/Bed: Admit/Disch: 04/28/19 05:30:00 - [place] [facility] PreOp Case Times Entry 1 In Preop 04/28/19 05:40:00 Ready for Holding n/a Room Patient Ready for 04/28/19 07:15:00 Surgery Patient Out of Preop 04/28/19 07:36:00 Patient Out of n/a Holding Room Last Modified By: ISAMAR MORRISON, SPENCER 04/28/19 09:32:08 ADI PreOp Case Times Audit 04/28/19 09:32:08 Supervisor Warping Department: FLOYDSF Modifier: FLOYDSF <+> 1 Patient Out of Preop Finalized By: ISAMAR MORRISON, RN Document Signatures Signed By: ISAMAR MORRISON RN 04/28/19 09:32 Electronically signed by May [facility] Conversion Fitness Sales Associate Cerner at 07/23/2022 4:31 PM CDT documented in this encounter Plan of Treatment Not on file documented as of this encounter Visit Diagnoses Not on filedocumented in this encounter Care Teams Geographical Historian Relationship Specialty Start Date End Date [facility], Provider Not In The System, [place] [address] PCP - General 04/16/23 documented as of this encounter
--- OUTSIDE RECORDS SUMMARY | 2025-01-09 02:10 | XMS_ITS | Clinical Summary ---
Author Organization [facility] Address [address] [place] [address] Care Team Providers Care Grants And Contracts Assistant Name Role Phone KaleeTimothy Primary Care Provider [phone] Allergies Active Allergy Reactions Criticality Noted Date [...] Patient may need Pain Management referral. Discontinue Satanta and use oxycodone 10mg q6h prn. 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 03/13/2022 Chronic arthritis associated [...] this topic Medical Devices Implanted Type Area Prints And Drawings Curator Device Identifier Shelf Expiration Date Model / Serial / Lot Cmt Bone Simplex/P Full Dose 10/Pk - [id number] Implanted:Qty : 1 on 07/18/2018 by Bautista Luis MD at [facility] Implant Right: Shoulder TRACY RUBEN 09/29/2020 [id number] / / [id number] Stem Hum Univers [place] 6x60mm - [id number] Implanted:Qty : 1 on 07/18/2018 by Bautista Luis MD at [facility] Implant Right: Shoulder ARTHREX 08/30/2022 [id number] / / [id number] Alberto Vaultlock Sm - [id number] Implanted:Qty : 1 on 07/18/2018 by Bautista Luis MD at [facility] Implant Right: Shoulder ARTHREX 12/30/2022 [id number] / / [id number] Hd Hum Univers2 Cocr 51c50in - [id number] Implanted:Qty : 1 on 07/18/2018 by Bautista Luis MD at [facility] Implant Right: Shoulder ARTHREX 03/01/2022 [id number] / / [id number] Sut Tw 2/0 38in Wht/Blk - [id number] Implanted:Qty : 3 on 07/18/2018 by Bautista Luis MD at [facility] Implant Right: Shoulder ARTHREX [id number] / / Totl Arth Shldr S3 - [id number] Implanted:Qty : 1 on 07/18/2018 by Bautista Luis MD at [facility] Implant Right: Shoulder ARTHREX CAPTOTLSHLD [id number] / / Procedures Procedure Name Priority Date/Time [...] 5:07 AM EST Performed at: 01 - [facility] [address] [place], [place] [id number] Legal Support Specialist: Carlos Rod PhD, Phone: [phone] Connor Nunez MD LAB BLOOD ORDERABLES Fin al Result Performing Organization Address [facility] Co de Phone Number [facility] [address] [place] [address], [facility] [address] [place] [address], * Hepatitis C Genotype (12/15/2021 11:55 AM EDT) [facility] Signature Hepatitis C Genotype Comment [facility] Comment: Specimen has insufficient hepatitis C virus RNA to obtain genotyping results. This genotyping assay should only be used for known HCV positive patients with HCV RNA levels above 1000 IU/mL. Please note Comment [facility] Comment: This test was developed and its performance characteristics determined by [facility]. It has not been cleared or approved by the U.S. Food and Drug Administration. The FDA has determined that such clearance or approval is not necessary. This test is used for clinical purposes. It should not be regarded as investigational or for research. Blood 12/15/2021 11:5 5 AM EDT 12/16/2021 Narrative [facility] ([facility] - 12/21/2021 8:08 PM EDT Performed at: [address] [place] [id number] Legal Support Specialist: Genna Davenport MD, Phone: [phone] Patient Fasting: Y Connor Nunez MD LAB BLOOD ORDERABLES Fin al Result Performing Organization Address [facility] Co de Phone Number [facility] [address] [place] [address], [facility] [address] [place], [place] [id number], * SCANNED - MAMMO (08/23/2021) Anatomical Region Laterality Modality Other Connor Nunez MD CHART REVIEW TABS Fin al Result * Hemoglobin A1c (07/10/2018 3:05 PM EDT) Hemoglobin A1C 5.10 4.80 - 5.60 % 07/10/2018 3:58 PM EDT [facility] Blood Venipuncture / Unknown 07/10/2018 3:05 PM EDT 07/10/2018 3:36 PM EDT Narrative [facility] - 07/10/2018 3:58 PM EDT Hemoglobin A1C Ranges: Increased Risk for Diabetes 5.7% to 6.4% Diabetes >= 6.5% Diabetic Goal < 7.0% Bautista Luis MD LAB BLOOD ORDERABLES Fin al Result [facility]
[address] [place] [address], from Last 3 Months or Most Recently Relevant to Health Maintenance Insurance MEDICARE A & B Member Subscriber Plan / Payer (Ef fective 2013-Present) Name:Farrah Atkinson Member ID:[id number] Relation to Subscriber:Self Name:Farrah Atkinson Subscriber ID:[id number] Payer ID:[id number] Group ID:Not on file Type:Not on file Address: [facility] [id number] [place] [address] Advance Directives * CPR (Attempt to Resuscitate) (Latest Code Status on File) Date Activated Date Inactivated Comments 07/18/2018 6:35 PM 07/19/2018 6:14 PM Question Answer Comments Code Status (Patient has no pulse and is not breathing): CPR (Attempt to Resuscitate) Medical Interventions (Patie nt has pulse or is breathing): Full Level Of Support Discussed With: Patient Care Teams Grants And Contracts Assistant Relationship Specialty Start Date End Date Timothy Granda DO [address] [place] [address] PCP - General Internal Medicine 06/12/23
== END 2025-01-08 23:59 | disposition home or self-care (01) ==
LOC: LAB.DROPOF 01-09 02:08
PROVIDERS: PCP Family Medicine; Visit Provider Family Medicine
DX: R39.9 Unspecified symptoms and signs involving the genitourinary system (principal)
CPT/HCPCS: 87086; 87088; 87186

== ENCOUNTER 2025-01-15 14:13 | Outpatient (CLI) | payer MEDICARE, SELFPAY ==
[2025-01-15 14:20] LABS: Microscopic, Urine URINE MICROSCOPIC (MICROSCOPIC)
--- OUTSIDE RECORDS SUMMARY | 2025-01-15 14:30 | XMS_ITS | Encounter Summary ---
Author Organization Healthcare Address [address] [place] [address] Care Team Providers Care Business Banker Name Role Phone Timothy Granda DO Primary Care Provider Sadia Campo PARKING GARAGE MANAGER Unavailable Unavailable Encounter Details Date Type Department Care Team (Late st Contact Info) Description 07/24/2023 Lab Requisition [facility] [address] [place] [address] Miky Coleman MD [address] [place] [address] Encounter for general adult medical [...] place to sleep or slept in a [place] facility (including now)? Patient refused 07/23/2023 CAGE ASSESSMENT [...] drink first t mini in the morning (EYE-SELF SEALING FUEL TANK REPAIRER) to steady your nerves or to get [...] 01/19/2025 10:00 AM EDT Office Visit Professional [facility] Nephrology, Bone & Mineral Metabolism [address] [facility] [address] [facility], [address] [place] [address] Gutierrez Domínguez MD [address] [place] [phone] documented as of this encounter Procedures [...] MICROBIOLOGY - GEN ERAL ORDERABLES Final Result [facility] [address] [place] [address] documented in this encounter Visit Diagnoses Diagnosis [...] documented as of this encounter Care Teams Business Banker Relationship Specialty Start Date End Date Timothy Granda DO [address] [place] [address] PCP - General 05/25/23 Sadia Campo, [place]ING [place] [address] Steel Rigger Coupler 08/03/22 06/21/24 documented as of this encounter
--- OUTSIDE RECORDS SUMMARY | 2025-01-15 14:30 | XMS_ITS | Encounter Summary ---
Author Organization [facility] Address [address] [place] [address] Care Team Providers Care Body Worker Name Role Phone GabrielTimothy armenta Primary Care Provider [phone] Encounter Details Date Type Department Care Team (Late st Contact Info) Description 01/07/2025 Orders Only [facility] [address] [place] [phone] Shantal Solorio TIP (acute kidney injury) (Primary Dx); Vitamin D insufficiency Social History Tobacco Use Types Packs/Day Years [...] place to sleep or slept in a residential (including now)? Patient refused 07/23/2023 CAGE ASSESSMENT [...] drink first t mini in the morning (EYE-MAINSPRING STRIP INSPECTOR) to steady your nerves or to get rid of a hangover? 0 11/15/2023 CAGE Questionnaire Score 0 024 Utilities Answer Date Recorded In the past 12 months has th e [employer], gas, oil, or water company threatened to [...] Description 01/19/2025 10:00 AM EDT Office Visit [facility] Nephrology, Bone & Mineral Metabolism [address] [address] [facility], [address] [place] [address] Gutierrez Domínguez MD [address] [place] [address] Scheduled Orders Name Type Priority Associated Diagnoses Orde r Schedule Renal Function Panel, Plasma Lab Routine TIP (acute kidney injury) ([facility]) Expected: 01/07/2025 (Approximate), Expires: 07/08/2026 CBC and Differential Lab Routine TIP (acute kidney injury) ([facility]) Expected: 01/07/2025 (Approximate), Expires: 07/08/2026 Creatinine, Random, Urine Lab Routine TIP (acute kidney injury) ([facility]) Expected: 01/07/2025 (Approximate), Expires: 07/08/2026 Protein, Random, Urine with Creatinine Lab Routine TIP (acute kidney injury) ([facility]) Expected: 01/07/2025 (Approximate), Expires: 07/08/2026 Urinalysis with reflex microscopic (Culture NOT Included) Lab Routine TIP (acute kidney injury) ([facility]) Expected: 01/07/2025 (Approximate), Expires: 07/08/2026 PTH Intact Total Lab Routine TIP (acute kidney injury) ([facility]) Vitamin D insufficiency Expected: 01/07/2025 (Approximate), Expires: 07/08/2026 Vitamin D 25 Hydroxy Lab Routine TIP (acute kidney injury) ([facility]) Vitamin D insufficiency Expected: 01/07/2025 (Approximate), Expires: 07/08/2026 documented as of this encounter Visit Diagnoses Diagnosis TIP (acute kidney injury)- Primary Vitamin D insufficiency documented in this encounter Additional Health Concerns Assessment Noted Time A fall risk assessment has been complete d for the patient 11/20/2023 11:12 AM EDT A Body Mass Index follow-up plan has been documented for the patient 12/02/2023 10:56 AM EDT documented as of this encounter Care Teams Body Worker Relationship Specialty Start Date End Date Timothy Granda DO [address] [place] [address] PCP - General 05/25/23 documented as of this encounter
--- OUTSIDE RECORDS SUMMARY | 2025-01-15 14:31 | XMS_ITS ---
Author Organization [facility] Address [address] [place] [id number] Care Team Providers Care Molecular Spectroscopist Name Role Phone Timothy Granda DO Primary Care Provider Hepatitis C Program Status:Paused (Paused) Start date:08/03/2022 Enrollment date:08/03/2022 Enrollment reason:HCV Continued Care and Services Coordination
--- OUTSIDE RECORDS SUMMARY | 2025-01-15 14:31 | XMS_ITS | Encounter Summary ---
Author Organization [employer] ([place], [place], [place], [place]) Address [address] [place] [address] Care Team Providers Care Lead Sewage Plant Operator Name Role Phone [facility], Provider Not In The System Primary Care Provider Unavailable Encounter Details Date Type Department Care Team (Late st Contact Info) Description 04/28/2019 Transcribed Document [facility] [place] [address] [place] [address] ProviderJean-Claude MD [address], [place] [id number] Social History Tobacco Use Types Packs/Day Years Used Date Smoking Tobacco: Never Assessed Comments Unknown Sex and Gender Information Value Date Recorded Sex Assigned at Not on file Legal Sex Female 5:42 PM CDT Gender Identity Not on file Sexual Orientation Not on file documented as of this encounter Miscellaneous Notes * Cerner Conversion Note - Historical ProviderMD - 04/28/2019 8:29 AM TESTBOARD OPERATOR Pain Assessment Entered On: 04/28/2019 9:28 EST Performed On: 04/28/2019 9:35 EST by Eduarda Patel Rn Patient Care Bedside Intervention Information: HYDROmorphone Performed by Eduadra Patel Rn Patient Care Bedside on 04/28/2019 [...] on filedocumented in this encounter Care Teams Lead Sewage Plant Operator Relationship Specialty Start Date End Date Sjh, Provider Not In The System, [place] [address] PCP - General 04/16/23 documented as of this encounter
--- OUTSIDE RECORDS SUMMARY | 2025-01-15 14:31 | XMS_ITS | Encounter Summary ---
Author Organization [employer] ([place], [place], [place], [place]) Address [address] [place] [address] Care Team Providers Care Superintendent Renting Managing Name Role Phone [facility], Provider Not In The System Primary Care Provider Unavailable Encounter Details Date Type Department Care Team (Late st Contact Info) Description 04/28/2019 Transcribed Document [facility] [place] [facility] [place] [address] ProviderJean-Claude MD [address], [place] [id number] Social History Tobacco Use Types Packs/Day Years Used Date Smoking Tobacco: Never Assessed Comments Unknown Sex and Gender Information Value Date Recorded Sex Assigned at Not on file Legal Sex Female 5:42 PM CDT Gender Identity Not on file Sexual Orientation Not on file documented as of this encounter Miscellaneous Notes * Cerner Conversion Note - Historical ProviderMD - 04/28/2019 7:06 AM BUSINESS PROCESS REPRESENTATIVE Pre Procedure Adult Entered On: 04/28/2019 7:12 EST Performed On: 04/28/2019 7:06 EST by ISAMAR MORRISON RN Height and Weight, Clinical Dosing Height Source : Stated Height Entry Format : [place] Height, Feet : 5 ft(Converted to: 152 cm, 60 Inch) Height, Inches : 2 Inch(Converted to: 0 ft 2 Inch, 5.08 cm) Clinical Height : 157.48 cm Weight Source : Standing scale Weight Entry Format : [place] Clinical Dosing Weight : 85 kg Weight, Pounds : 187 lb Body Surface Area (BSA) : 1.86 m2 Body Mass Index : 34.3 kg/m2 (HI) [place] Body Weight : 50 kg ISAMAR MORRISON [...] ISAMAR MORRISON RN - 04/28/2019 7:06 EST Sullivan Suicide Severity Rating Scale (C-SSRS) CSSRS Past [...] No, patient refuses Advance Directive information ISAMAR MORRSION RN - 04/28/2019 7:06 EST Spiritual/Cultural Needs [...] Obtained From : Patient Primary Language : Danish Preferred Communication Mode : Verbal Communication Barrier [...] Scale Risk Level : 0-24 Low Risk Altha Fall Interventions : Bed in low position, [...] filedocumented in this encounter Care Teams Superintendent Renting Managing Relationship Specialty Start Date End Date Leslee, Provider Not In The System, [place] [address] PCP - General 04/16/23 documented as of this encounter
--- OUTSIDE RECORDS SUMMARY | 2025-01-15 14:31 | XMS_ITS | Encounter Summary ---
Author Organization [facility] Address [address] [facility], [address] [place] [address] Care Team Providers Care Fuel Cell Systems Engineer Name Role Phone Unavailable Primary Care Provider Unavailabl e Reason for Visit * Reason Onset Date Comments Surgery Scheduling 12/08/2024 Encounter Details Date Type Department Care Team (Late st Contact Info) Description 12/08/2024 Telephone [facility], [place] [address] Sharon Paulino MD [address] [place] [address] [address] [place] [address] Surgery Scheduling Social History Tobacco [...]
--- OUTSIDE RECORDS SUMMARY | 2025-01-15 14:31 | XMS_ITS | Encounter Summary ---
Author Organization [facility] Address [address] [facility], [address] [place] [address] Care Team Providers Care Hedge Fund Manager Name Role Phone Unavailable Primary Care Provider Unavailabl e Encounter Details Date Type Department Care Team (Latest Contact Info) Description 11/05/2024 Prep for Procedure [facility] Orthopedic and Sports Medicine [address] [place] [address] [place] History of total replacement of left shoulder [...]
--- OUTSIDE RECORDS SUMMARY | 2025-01-15 14:31 | XMS_ITS | Clinical Summary ---
Author Organization [facility] Address [address] [place] [address] Care Team Providers Care Development And Planning Engineer Name Role Phone KaleeTimothy Primary Care Provider [phone] Allergies Active Allergy Reactions Criticality Noted Date [...] Patient may need Pain Management referral. Discontinue Challis and use oxycodone 10mg q6h prn. 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 03/13/2022 Chronic arthritis associated [...] this topic Medical Devices Implanted Type Area Pet Care Attendant Device Identifier Shelf Expiration Date Model / Serial / Lot Cmt Bone Simplex/P Full Dose 10/Pk - [id number] Implanted:Qty : 1 on 07/18/2018 by Bautista Luis MD at [facility] Implant Right: Shoulder TRACY RUBEN 09/29/2020 [id number] / / [id number] Stem Hum Univers [place] 6x60mm - [id number] Implanted:Qty : 1 on 07/18/2018 by Bautista Luis MD at [facility] Implant Right: Shoulder ARTHREX 08/30/2022 [id number] / / [id number] Alberto Vaultlock Sm - [id number] Implanted:Qty : 1 on 07/18/2018 by Bautista Luis MD at [facility] Implant Right: Shoulder ARTHREX 12/30/2022 [id number] / / [id number] Hd Hum Univers2 Cocr [id number] - [id number] Implanted:Qty : 1 on 07/18/2018 by Bautista Luis MD at [facility] Implant Right: Shoulder ARTHREX 03/01/2022 [id number] / / [id number] Sut Tw 2/0 38in Wht/Blk - [id number] Implanted:Qty : 3 on 07/18/2018 by Bautista Luis MD at [facility] Implant Right: Shoulder ARTHREX [id number] / / Totl Arth Shldr S3 - [id number] Implanted:Qty : 1 on 07/18/2018 by Bautista Luis MD at [facility] Implant Right: Shoulder ARTHREX CAPTOTLSHLD [id number] / / Procedures Procedure Name Priority Date/Time [...] 5:07 AM EST Performed at: 01 - [facility] [address] [place], [place] [id number] Dust Sampler: Carlos Rod PhD, Phone: [phone] Connor Nunez MD LAB BLOOD ORDERABLES Fin al Result Performing Organization Address [facility] Co de Phone Number [facility] ([facility] [address] [place] [address], [facility] [address] [place] [address], * Hepatitis C Genotype (12/15/2021 11:55 AM EDT) [facility] Signature Hepatitis C Genotype Comment [facility] Comment: Specimen has insufficient hepatitis C virus RNA to obtain genotyping results. This genotyping assay should only be used for known HCV positive patients with HCV RNA levels above 1000 IU/mL. Please note Comment [facility] Comment: This test was developed and its performance characteristics determined by [facility]. It has not been cleared or approved by the U.S. Food and Drug Administration. The FDA has determined that such clearance or approval is not necessary. This test is used for clinical purposes. It should not be regarded as investigational or for research. Blood 12/15/2021 11:5 5 AM EDT 12/16/2021 Narrative [facility] - 12/21/2021 8:08 PM EDT Performed at: [address] [place] [id number] Dust Sampler: Genna Davenport MD, Phone: [phone] Patient Fasting: Y Connor Nunez MD LAB BLOOD ORDERABLES Fin al Result Performing Organization Address [facility] Co de Phone Number [facility] [address] [place] [address], [facility] [address] [place], [place] [id number], * SCANNED - MAMMO (08/23/2021) Anatomical Region Laterality Modality Other Connor Nunez MD CHART REVIEW TABS Fin al Result * Hemoglobin A1c (07/10/2018 3:05 PM EDT) Hemoglobin A1C 5.10 4.80 - 5.60 % 07/10/2018 3:58 PM EDT [facility] Blood Venipuncture / Unknown 07/10/2018 3:05 PM EDT 07/10/2018 3:36 PM EDT Narrative [facility] - 07/10/2018 3:58 PM EDT Hemoglobin A1C Ranges: Increased Risk for Diabetes 5.7% to 6.4% Diabetes >= 6.5% Diabetic Goal < 7.0% Bautista Luis MD LAB BLOOD ORDERABLES Fin al Result [facility]
[address] [place] [address], from Last 3 Months or Most Recently Relevant to Health Maintenance Insurance MEDICARE A & B Member Subscriber Plan / Payer (Ef fective 2013-Present) Name:Farrah Atkinson Member ID:[id number] Relation to Subscriber:Self Name:Farrah Atkinson Subscriber ID:[id number] Payer ID:[id number] Group ID:Not on file Type:Not on file Address: [facility] [id number] [address] [place] [address] Advance Directives * CPR (Attempt to Resuscitate) (Latest Code Status on File) Date Activated Date Inactivated Comments 07/18/2018 6:35 PM 07/19/2018 6:14 PM Question Answer Comments Code Status (Patient has no pulse and is not breathing): CPR (Attempt to Resuscitate) Medical Interventions (Patie nt has pulse or is breathing): Full Level Of Support Discussed With: Patient Care Teams Development And Planning Engineer Relationship Specialty Start Date End Date Timothy Granda DO [address] [place] [address] PCP - General Internal Medicine 06/12/23
--- OUTSIDE RECORDS SUMMARY | 2025-01-15 14:31 | XMS_ITS | Encounter Summary ---
Author Organization [email or web address] ([place], [place], [place], [place]) Address [address] [place] [address] Care Team Providers Care Rope Twisting Machine Operator Name Role Phone [facility], Provider Not In The System Primary Care Provider Unavailable Encounter Details Date Type Department Care Team (Late st Contact Info) Description 04/28/2019 Transcribed Document [facility] [place] Medicine [address] [place] [address] ProviderJean-Claude MD [address], [place] [phone] Social History Tobacco Use Types Packs/Day Years Used Date Smoking Tobacco: Never Assessed Comments Unknown Sex and Gender Information Value Date Recorded Sex Assigned at Not on file Legal Sex Female 5:42 PM CDT Gender Identity Not on file Sexual Orientation Not on file documented as of this encounter Miscellaneous Notes * Cerner Conversion Note - Historical ProviderMD - 04/28/2019 8:05 AM LIQUOR GALLERY OPERATOR [facility]I Main OR PreOp Summary Primary Physician: MADISON OSPINA MD-ORT Finalized Date/Time: 04/28/19 09:32:12 Pt. Name: MOISE ATKINSON/Sex: 1950 Female Med Rec #: [id number] Physician: MADISON OSPINA MD-ORT Financial #: [id number] Pt. Type: O Room/Bed: Admit/Disch: 04/28/19 05:30:00 - Institution: [facility] [place] PreOp Case Times Entry 1 In Preop 04/28/19 05:40:00 Ready for Holding n/a Room Patient Ready for 04/28/19 07:15:00 Surgery Patient Out of Preop 04/28/19 07:36:00 Patient Out of n/a Holding Room Last Modified By: ISAMAR MORRISON, SPENCER 04/28/19 09:32:08 ADI PreOp Case Times Audit 04/28/19 09:32:08 Ivf Embryologist: [email or web address] Modifier: [email or web address] <+> 1 Patient Out of Preop Finalized By: ISAMAR MORRISON, RN Document Signatures Signed By: ISAMAR MORRISON RN 04/28/19 09:32 Electronically signed by May [facility] Conversion Delivery Representative Cerner at 07/23/2022 4:31 PM CDT documented in this encounter Plan of Treatment Not on file documented as of this encounter Visit Diagnoses Not on filedocumented in this encounter Care Teams Rope Twisting Machine Operator Relationship Specialty Start Date End Date [facility], Provider Not In The System, [place] [address] PCP - General 04/16/23 documented as of this encounter
--- OUTSIDE RECORDS SUMMARY | 2025-01-15 14:31 | XMS_ITS | Encounter Summary ---
Author Organization [employer] [facility] Address [address] [place] [address], [address] [place] [address] Care Team Providers Care Structural Fitter Name Role Phone Unavailable Primary Care Provider Unavailabl e Reason for Visit * Reason Onset Date Comments Care Coordination 11/21/2024 Nurse navigato r Encounter Details Date Type Department Care Team (Late st Contact Info) Description 11/21/2024 Telephone [facility] Orthopedic and Sports Medicine [place] [phone] Willa Lan RN Care Coordination (Nurse navigator) [...]
--- OUTSIDE RECORDS SUMMARY | 2025-01-15 14:31 | XMS_ITS | Encounter Summary ---
Author Organization [email or web address] ([place], [place], [place], [place]) Address [address] [place] [address] Care Team Providers Care Parts Sales Associate Name Role Phone [facility], Provider Not In The System Primary Care Provider Unavailable Encounter Details Date Type Department Care Team (Late st Contact Info) Description 04/28/2019 Transcribed Document [facility] [place] [address] [place] [address] ProviderJean-Claude MD [address] [place], [place] [id number] Social History Tobacco Use Types Packs/Day Years Used Date Smoking Tobacco: Never Assessed Comments Unknown Sex and Gender Information Value Date Recorded Sex Assigned at Not on file Legal Sex Female 5:42 PM CDT Gender Identity Not on file Sexual Orientation Not on file documented as of this encounter Miscellaneous Notes * Cerner Conversion Note - Historical ProviderMD - 04/28/2019 9:51 AM MATERIALS AND PROCESSES MANAGER [place] [phone] MOISE PANDEY :1950 Visit Time:04/28/2019 What to do next Your Diagnosis Pain in unspecified knee, Pain in unspecified knee Instructions From Your Care Team No driving or legal decision for 24 hours after anesthesia. may advance diet as tolerated. May take [place] 10-325mg 1 tablet by mouth every 4-6 [...] Within 2 to 3 days Where: [address] [facility] [address] [place] [address]- Medications What How Much When Instructions Next [...] activities are safe for you. ??? Take fbhm-uph-qxmxgul and prescription medicines only as told by [...] 06/25/2001 Document Revised: 11/02/2017 Document Reviewed: 11/02/2017 [employer] Interactive Patient Education ?? 2019 [employer] Inc. Knee Arthroscopy, Care After Refer to [...] activities are safe for you. ??? Perform lbtoj-fp-gasmgx exercises only as directed by your health [...] 10/06/2005 Document Revised: 08/18/2016 Document Reviewed: 03/15/2015 [employer] Interactive Patient Education ?? 2018 Nu[employer]lick. acetaminophen and hydrocodone (a SEET a MIN oh fen and ladonna droe KOE done) Hycet, Lorcet, [place], Verdrocet, Vicodin, Xodol, Zamicet What is the [...] may report side effects to FDA at 5-277-GMO-4593. What other drugs will affect acetaminophen and [...] affect acetaminophen and hydrocodone, including prescription and seyh-nzs-prtyezy medicines, vitamins, and herbal products. Not all [...] to ensure that the information provided by Podaddies. ('Multum') is accurate, up-to-date, and complete, but no guarantee is made to that effect. Drug information contained herein may be time sensitive. Ad[employer] information has been compiled for use by healthcare practitioners and consumers in the [place] and therefore [employer] does not warrant that uses outside of the [place] are appropriate, unless specifically indicated otherwise. Memorados drug information does not endorse drugs, diagnose patients or recommend therapy. Memorados drug information is an informational resource designed [...] effective or appropriate for any given patient. [employer] does not assume any responsibility for any aspect of healthcare administered with the aid of information Ad[employer] provides. The information contained herein is not intended to cover all possible uses, directions, precautions, warnings, drug interactions, allergic reactions, or adverse effects. If you have questions about the drugs you are taking, check with your doctor, nurse or pharmacist. Copyright 8305-1867 Podaddies. Version: 15.02. Revision Date: 02/04/2018. Emergency Awareness [...] Assistance with quitting is available by contacting 1-643-NKNZ-NOW. This is a free resource providing counseling, [...] was given the opportunity to ask questions. Patient/Locksmith Name: Patient/Locksmith Signature: Relationship to Patient: Clinician/Hospital Locksmith Signature: Date: documented in this encounter Plan of Treatment Not on file documented as of this encounter Visit Diagnoses Not on filedocumented in this encounter Care Teams Parts Sales Associate Relationship Specialty Start Date End Date Leslee, Provider Not In The System, [place] [address] PCP - General 04/16/23 documented as of this encounter
--- OUTSIDE RECORDS SUMMARY | 2025-01-15 14:31 | XMS_ITS | Clinical Summary ---
Author Organization [employer] ([place], [place], [place], [place]) Address [address] [place] [address] Care Team Providers Care Compound Filler Name Role Phone [facility] [...] Date Dereje rded Speak language other than Azeri at home Not on file 04/12/2023 Want [...] - 1-dose 75+ series) 09/26/2026 Care Teams Compound Filler Relationship Specialty Start Date End Date [facility], Provider Not In The System, [place] [address] PCP - General 04/16/23
--- OUTSIDE RECORDS SUMMARY | 2025-01-15 14:31 | XMS_ITS | Encounter Summary ---
Author Organization [employer] ([place], [place], [place], [place]) Address [address] [place] [address] Care Team Providers Care Senior It Auditor Name Role Phone [facility], Provider Not In The System Primary Care Provider Unavailable Encounter Details Date Type Department Care Team (Late st Contact Info) Description 04/28/2019 Transcribed Document [facility] [place] Medicine [facility] [place] [address] ProviderJean-Claude MD [facility] [place], [place] [phone] Social History Tobacco Use Types Packs/Day Years Used Date Smoking Tobacco: Never Assessed Comments Unknown Sex and Gender Information Value Date Recorded Sex Assigned at Not on file Legal Sex Female 5:42 PM CDT Gender Identity Not on file Sexual Orientation Not on file documented as of this encounter Miscellaneous Notes * Cerner Conversion Note - Historical ProviderMD - 04/28/2019 8:29 AM FISH TENDER Pain Assessment Entered On: 04/28/2019 9:06 EST [...] filedocumented in this encounter Care Teams Senior It Auditor Relationship Specialty Start Date End Date Leslee, Provider Not In The System, [place] [address] PCP - General 04/16/23 documented as of this encounter
--- OUTSIDE RECORDS SUMMARY | 2025-01-15 14:31 | XMS_ITS | Encounter Summary ---
Author Organization [employer] ([place], [place], [place], [place]) Address [address] [place] [address] Care Team Providers Care Paraprofessional Aide Name Role Phone [facility], Provider Not In The System Primary Care Provider Unavailable Encounter Details Date Type Department Care Team (Late st Contact Info) Description 04/28/2019 Transcribed Document [facility] [place] [address] [place] [address] ProviderJean-Claude MD [address] [place], [place] [phone] Social History Tobacco Use Types Packs/Day Years Used Date Smoking Tobacco: Never Assessed Comments Unknown Sex and Gender Information Value Date Recorded Sex Assigned at Not on file Legal Sex Female 5:42 PM CDT Gender Identity Not on file Sexual Orientation Not on file documented as of this encounter Miscellaneous Notes * Cerner Conversion Note - Historical ProviderMD - 04/28/2019 10:01 AM WATER RESOURCE PROJECT MANAGER [place] [phone] MOISE PANDEY :1950 Visit Time:04/28/2019 What to do next Your Diagnosis Pain in unspecified knee, Pain in unspecified knee Instructions From Your Care Team No driving or legal decision for 24 hours after anesthesia. may advance diet as tolerated. May take [place] 10-325mg 1 tablet by mouth every 4-6 [...] Comments Appointment has been made Where: [address] [facility] [address] [place] [address]- Medications What How Much When Instructions Next [...] activities are safe for you. ??? Take ccdl-vrx-ptcfmra and prescription medicines only as told by [...] 06/25/2001 Document Revised: 11/02/2017 Document Reviewed: 11/02/2017 [employer] Interactive Patient Education ?? 2019 Trigger.[employer] Inc. Knee Arthroscopy, Care After Refer to [...] activities are safe for you. ??? Perform vbalf-bq-fhneyn exercises only as directed by your health [...] 10/06/2005 Document Revised: 08/18/2016 Document Reviewed: 03/15/2015 [employer] Interactive Patient Education ?? 2018 [employer] Lights. acetaminophen and hydrocodone (a SEET a MIN oh fen and ladonna droe KOE done) Hycet, Lorcet, [place], Verdrocet, Vicodin, Xodol, Zamicet What is the [...] may report side effects to FDA at 0-986-RKB-8869. What other drugs will affect acetaminophen and [...] affect acetaminophen and hydrocodone, including prescription and dmrv-pzh-taucghu medicines, vitamins, and herbal products. Not all [...] to ensure that the information provided by Ap[employer]a. ('Multum') is accurate, up-to-date, and complete, but no guarantee is made to that effect. Drug information contained herein may be time sensitive. Playdemic information has been compiled for use by healthcare practitioners and consumers in the [place] and therefore Playdemic does not warrant that uses outside of the [place] are appropriate, unless specifically indicated otherwise. Flixlabs drug information does not endorse drugs, diagnose patients or recommend therapy. Zula drug information is an informational resource designed [...] effective or appropriate for any given patient. Play[employer] does not assume any responsibility for any aspect of healthcare administered with the aid of information Playdemic provides. The information contained herein is not intended to cover all possible uses, directions, precautions, warnings, drug interactions, allergic reactions, or adverse effects. If you have questions about the drugs you are taking, check with your doctor, nurse or pharmacist. Copyright 7101-8584 Apcera. Version: 15.02. Revision Date: 02/04/2018. Emergency Awareness [...] Assistance with quitting is available by contacting 8-180-OJPD-NOW. This is a free resource providing counseling, [...] was given the opportunity to ask questions. Patient/County Nurse Name: Patient/County Nurse Signature: Relationship to Patient: Clinician/Hospital County Nurse Signature: Date: documented in this encounter Plan of Treatment Not on file documented as of this encounter Visit Diagnoses Not on filedocumented in this encounter Care Teams Paraprofessional Aide Relationship Specialty Start Date End Date Deejay, Provider Not In The System, [place] [address] PCP - General 04/16/23 documented as of this encounter
--- OUTSIDE RECORDS SUMMARY | 2025-01-15 14:31 | XMS_ITS | Clinical Summary ---
Author Organization [facility] Address [address] [place] [address] Care Team Providers Care Rn Transition Name Role Phone Timothy Granda DO Primary Care Provider [phone] Allergies Active Allergy Reactions Criticality Noted Date [...] (08/15/2022): Nephrology consulted prior Renal function improving Encounters Date Type Department Care Team Description 01/07/2025 Orders Only [facility] [address] [place] [phone] Shantal Solorio TIP (acute kidney injury) (Primary Dx); Vitamin D insufficiency from Last 3 Months Immunizations Immunization Administration Dates Next Due Influenza Vaccine, Quadrivalent, Adjuvanted 01/31,01/25/2022,05/31/2021 Influenza, injectable, quadrivalent 02/14/2015 Influenza, injectable, quadr ivalent, preservative free 02/14/2015 Influenza, trivalent, adjuvanted 12/22/2019 IntelliBatt COVID-19 Vaccine (Blue Cap) 18+ 06/10/19 Moderna COVID-19 Vaccine (Re d Cap) 12+ years 07/18/2021,01/27/2021 Moderna COVID-19 Vaccine Bivalent 6months+ 01/25 PPD Skin Test (TB Skin Test) 09/04/2022 Pfizer Covid-19 Vaccine 12y+ , Mahesh Protein, PF, [...] place to sleep or slept in a halfway (including now)? Patient refused 07/23/2023 CAGE ASSESSMENT [...] drink first t mini in the morning (EYE-SYSTEMS TESTER) to steady your nerves or to get rid of a hangover? 0 11/15/2023 CAGE Questionnaire Score 0 024 Utilities Answer Date Recorded In the past 12 months has e [employer], gas, oil, or water [employer] threatened to shut off services in your [...] [address] [facility], [address] [place] [address] Gutierrez Domínguez MD [address] [place] [phone] Health Maintenance Due Date Last Done [...] (AWV) 03/13/2023 03/13/2022 UKY-Depression Screening 03/27/2024 03/27/2023 [id number] Vaccine ( season) 2024 02/20/2024, 02/09/2023, 01/25/2022, [...] Antigen Negative Negative 08/02/2023 7:49 PM EDT [facility] Hepatitis A Antibody IgM Negative Negative 08/02/2023 7:49 PM EDT [facility] Hepatitis B Core Antibody IgM Negative Negative 08/02/2023 7:49 PM EDT [facility] Blood Venous blood specimen / Unknown Venipuncture / Unknown 08/02/2023 2:56 PM EDT 08/02/2023 3:22 PM EDT Narrative [facility] - 08/02/2023 7:49 PM EDT Hepatitis [...] MD LAB BLOOD ORDERABLES Final R esult [facility] [address] [place] [address] * Flexible Sigmoidoscopy (02/21/2023 10:25 AM EST) [...] Misti Page MD Adam Rooks, MD Proceduralist global consumer sector vice president Adama Montes, Chika Peterson CRNA, RN Endo Nurse Butch Little MD Fellow Tete Whitmore Endo Farmworker [employer] Preprocedure A history and physical has been [...] of bowel preparation was evaluated using the Caret Bowel Preparation Scale with scores of: left [...] of bowel preparation was evaluated using the Caret Bowel Preparation Scale with scores of: right [...] Chilo Biswas MD GI PROCEDURE ORDERABLES Lillie abhi Result from Last 3 Months or Most Recently Relevant to Health Maintenance Insurance [place] AG[place] [id number] MEDICARE Advance Directives * Full Code (Latest [...] Patient has decision-making capacity? Yes Care Teams Rn Transition Relationship Specialty Start Date End Date Timothy Granda DO [address] [place] [address] [place] [address] PCP - General 05/25/23
--- OUTSIDE RECORDS SUMMARY | 2025-01-15 14:31 | XMS_ITS | Encounter Summary ---
Author Organization [facility] [facility] Address [address] [facility], [address] [place] [address] Care Team Providers Care Lead Software Developer Name Role Phone Unavailable Primary Care Provider Unavailabl e Reason for Visit * Reason Onset Date Comments Surgery Scheduling 11/20/2024 LT SHDLR Encounter Details Date Type Department Care Team (Late st Contact Info) Description 11/20/2024 Telephone [facility] [address] [place] [phone] [place] [address] [place] [address] [address] [place] [address] Surgery Scheduling (LT SHDLR) Social [...]
--- OUTSIDE RECORDS SUMMARY | 2025-01-15 14:31 | XMS_ITS | Clinical Summary ---
Author Organization [employer] [facility] Address [address] [facility], [address] [place] [address] Care Team Providers Care Industrial Technician Name Role Phone Unavailable Primary Care [...] (ZANAFLEX) 4 MG tablet 03/20/2024 Active CREON 38252-190738 units CPEP delayed release capsule TAKE ONE [...] Type Department Care Team Description 12/08/2024 Telephone [facility], [place] [address] Sharon Paulino MD Surgery Scheduling 11/21/2024 Telephone [facility] Orthopedic and Sports Medicine [address] [address] Willa Lan RN Care Coordination (Nurse navigator) 11/20/2024 Telephone [facility] [place] [facility] [address] [facility] [address] [place] [phone] Sharon Paulino MD Surgery Scheduling ( SHDLR) 11/05/2024 Prep for Procedure [facility] Orthopedic [facility] [address] [place] [phone] Laisha Galvan MA History of total replacement [...] ID:Not on file Type:Not on file Address: [address]
--- OUTSIDE RECORDS SUMMARY | 2025-01-15 14:31 | XMS_ITS | Encounter Summary ---
Author Organization [employer] ([place], [place], [place], [place]) Address [address] [place] [address] Care Team Providers Care Circuit Walker Name Role Phone [facility], Provider Not In The System Primary Care Provider Unavailable Encounter Details Date Type Department Care Team (Late st Contact Info) Description 04/28/2019 Transcribed Document [facility] [place] [facility] [place] [address] ProviderJean-Claude MD [address] [place], [place] [phone] Social History Tobacco Use Types Packs/Day Years Used Date Smoking Tobacco: Never Assessed Comments Unknown Sex and Gender Information Value Date Recorded Sex Assigned at Not on file Legal Sex Female 5:42 PM CDT Gender Identity Not on file Sexual Orientation Not on file documented as of this encounter Miscellaneous Notes * Cerner Conversion Note - Jean-Claude ProviderMD - 04/28/2019 9:47 AM FIRE AND EXPLOSION INVESTIGATOR Patient Education Materials Follows: General Anesthesia, Adult, [...] activities are safe for you. ??? Take hgfd-gqf-hywgscv and prescription medicines only as told by [...] 06/25/2001 Document Revised: 11/02/2017 Document Reviewed: 11/02/2017 Colibrí Interactive Patient Education ? 2019 Colibrí Inc. Knee Arthroscopy, Care After Refer to [...] activities are safe for you. ??? Perform aigxi-kv-wlwbyt exercises only as directed by your health [...] 03/15/2015 Elsevier Interactive Patient Education ? 2018 Colibrí Inc. Electronically signed by Leslee Olvera Conversion Professor Of Biological Sciences Cerner at 07/23/2022 4:28 PM CDT documented in this encounter Plan of Treatment Not on file documented as of this encounter Visit Diagnoses Not on filedocumented in this encounter Care Teams Circuit Walker Relationship Specialty Start Date End Date Leslee, Provider Not In The System, [place] [address] PCP - General 04/16/23 documented as of this encounter
--- OUTSIDE RECORDS SUMMARY | 2025-01-15 14:31 | XMS_ITS | Encounter Summary ---
Author Organization [employer] ([place], [place], [place], [place]) Address [address] [place] [address] Care Team Providers Care Drop Hammer Operator Helper Name Role Phone Sj, Provider Not In The System Primary Care Provider Unavailable Encounter Details Date Type Department Care Team (Late st Contact Info) Description 04/28/2019 Transcribed Document [facility] [place] [facility] [place] [address] ProviderJean-Claued MD [address] [place], [place] [phone] Social History Tobacco Use Types Packs/Day Years Used Date Smoking Tobacco: Never Assessed Comments Unknown Sex and Gender Information Value Date Recorded Sex Assigned at Not on file Legal Sex Female 5:42 PM CDT Gender Identity Not on file Sexual Orientation Not on file documented as of this encounter Miscellaneous Notes * Cerner Conversion Note - Jean-Claude ProviderMD - 04/28/2019 9:04 AM SQL SERVER DBA DATE OF PROCEDURE: 04/28/2019 SURGEON: Timothy Foster [...] to the recovery room in satisfactory condition. /[id number] MD MICHAEL Trujillo/AQ / MICHAEL / MODL /[id number] Electronically signed by Leslee Olvera Conversion Mold Cutting Machine Operator Cerner at 07/23/2022 4:25 PM CDT documented in this encounter Plan of Treatment Not on file documented as of this encounter Visit Diagnoses Not on filedocumented in this encounter Care Teams Drop Hammer Operator Helper Relationship Specialty Start Date End Date Leslee, Provider Not In The System, [place] [address] PCP - General 04/16/23 documented as of this encounter
--- OUTSIDE RECORDS SUMMARY | 2025-01-15 14:31 | XMS_ITS | Encounter Summary ---
Author Organization [employer] ([place], [place], [place], [place]) Address [address] [place] [address] Care Team Providers Care Passenger Representative Name Role Phone [facility], Provider Not In The System Primary Care Provider Unavailable Encounter Details Date Type Department Care Team (Late st Contact Info) Description 04/28/2019 Transcribed Document [facility] Family Medicine [address] [place] [address] ProviderJean-Claude MD [address], [place] [id number] Social History Tobacco Use Types Packs/Day Years Used Date Smoking Tobacco: Never Assessed Comments Unknown Sex and Gender Information Value Date Recorded Sex Assigned at Not on file Legal Sex Female 5:42 PM CDT Gender Identity Not on file Sexual Orientation Not on file documented as of this encounter Miscellaneous Notes * Cerner Conversion Note - Historical ProviderMD - 04/28/2019 8:05 AM SUPERVISOR INSTANT POTATO PROCESSING [facility] Main OR PostOp Summary Primary Physician: MADISON OSPINA MD-ORT Finalized Date/Time: 04/28/19 10:18:29 Pt. Name: MOISE ATKINSON/Sex: 1950 Female Med Rec #: [id number] Physician: MADISON OSPINA MD-ORT Financial #: [id number] Pt. Type: O Room/Bed: Admit/Disch: 04/28/19 05:30:00 - [place] [facility] [place] PostOp Case Times Entry 1 In PACU II 04/28/19 09:36:00 Ready for PACU II 04/28/19 10:15:00 Discharge Discharge from PACU 04/28/19 10:15:00 II Last Modified By: Shanel Conrad RN 04/28/19 10:18:24 Finalized By: Shanel Conrad, RN Document Signatures Signed By: Sahnel Conrad RN 04/28/19 10:18 Electronically signed by May [facility] Conversion Leasing Specialist Cerner at 07/23/2022 4:27 PM CDT documented in this encounter Plan of Treatment Not on file documented as of this encounter Visit Diagnoses Not on filedocumented in this encounter Care Teams Passenger Representative Relationship Specialty Start Date End Date [facility], Provider Not In The System, [place] [address] PCP - General 04/16/23 documented as of this encounter
--- OUTSIDE RECORDS SUMMARY | 2025-01-15 14:31 | XMS_ITS | Referral Summary ---
Author Organization [employer] ([place], [place], [place], [place]) Address [address] [place] [address] Care Team Providers Care Gamma Operator Name Role Phone [facility], Provider Not In The System Primary [...] Date Dereje rded Speak language other than Moldovan at home Not on file 04/12/2023 Want [...] of Treatment Not on file Care Teams Gamma Operator Relationship Specialty Start Date End Date [facility], Provider Not In The System, [place] [address] PCP - General 04/16/23
--- OUTSIDE RECORDS SUMMARY | 2025-01-15 14:31 | XMS_ITS | Clinical Summary ---
Author Organization [facility] Address [address] [place] [address] Phone Care Team Providers Care Glass Forming Crew Member Name Role Phone Unavailable Primary Care [...] mouth daily. 30 Tablet 5 11/21/2024 Active DULoxetine (CYMBALTA) 60 mg Oral Capsule, Delayed Release(E.C.) TAKE 2 CAPSULES BY MOUTH ONCE DAILY 60 Capsule 12/10/2024 Active Active Problems No known active problems [...] Insurance MEDICARE [place] PART A AND B [employer]
--- OUTSIDE RECORDS SUMMARY | 2025-01-15 14:31 | XMS_ITS | Encounter Summary ---
Author Organization [employer] ([place], [place], [place], [place]) Address [address] [place] [address] Care Team Providers Care Vegetable Thinner Name Role Phone [facility], Provider Not In The System Primary Care Provider Unavailable Encounter Details Date Type Department Care Team (Late st Contact Info) Description 04/28/2019 Transcribed Document [facility] [place] [facility] [place] [address] ProviderJean-Claude MD [address], [place] [id number] Social History Tobacco Use Types Packs/Day Years Used Date Smoking Tobacco: Never Assessed Comments Unknown Sex and Gender Information Value Date Recorded Sex Assigned at Not on file Legal Sex Female 5:42 PM CDT Gender Identity Not on file Sexual Orientation Not on file documented as of this encounter Miscellaneous Notes * Cerner Conversion Note - Historical ProviderMD - 04/28/2019 8:05 AM PROCESS CONTROLS TECHNICIAN AD[facility] Main OR IntraOp Summary Primary Physician: MADISON OSPINA MD-ORT Finalized Date/Time: 04/28/19 08:39:15 Pt. Name: FARRAH ATKINSON D.O.B./Sex: 1950 Female Med Rec #: [id number] Physician: MADISON OSPINA MD-ORT Financial #: [id number] Pt. Type: O Room/Bed: Admit/Disch: 04/28/19 05:30:00 - [place] [facility] [place] Case Attendance Entry 1 Entry 2 Entry 3 Case Attendee MADISON OSPINA MD-ORT WICKER, KAREN KIM, ARIA WATERS RN Role Performed Surgeon/Proceduralist, DYE ROOM HELPER/Nurse Trailer Mechanic Men'S Swim Coach, First First Time In 04/28/19 07:39:00 04/28/19 [...] [facility] IntraOp Case Attendance Audit 04/28/19 08:34:51 Supervisor Frame Assembly: LONGGA Modifier: LONGGA 1 <+> Time Out 1 <*> Procedure Knee Arthroscopy 2 <+> Time Out 2 <*> Procedure Knee Arthroscopy 3 <+> Time Out 3 <*> Procedure Knee Arthroscopy 4 <+> Time Out 4 <*> Procedure Knee Arthroscopy 5 <+> Time Out 5 <*> Procedure Knee Arthroscopy 04/28/19 08:07:14 Supervisor Frame Assembly: LONGGA Modifier: LONGGA <+> 1 Time In [...] [facility] IntraOp Case Times Audit 04/28/19 08:34:50 Supervisor Frame Assembly: LONGGA Modifier: LONGGA <+> 1 Out Room Time <+> 1 Stop Time 04/28/19 08:31:56 Supervisor Frame Assembly: LONGGA Modifier: LONGGA <+> 1 Stop Time [...] IntraOp Departure from OR Audit 04/28/19 08:32:27 Supervisor Frame Assembly: EMBER Modifier: LONGGA 1 <*> Patient Transport [...] RN 04/28/19 08:15:47 [facility] IntraOp General Case Stitch Bonding Machine Drawer In 1 Case Information OR OR 05 [facility] Case Level 1 Room Verified Yes Wound Class I - Clean Specialty SN Orthopedic Anesthesia Type General ASA Class 3 Diagnosis Preop Diagnosis PATELLAR CHONDROMALACIA RIGHT KNEE Postop Same As Preop No Postop Diagnosis DICTATED BY Mary Last Modified By: ARIA MELCHOR RN 04/28/19 08:15:39 [facility] IntraOp General Case Data Audit 04/28/19 08:15:39 Supervisor Frame Assembly: EMBER Modifier: LONGGA <+> 1 ASA Class [...] Entry 1 Medication/Irrigant epinephrine 30mg/30ml vial - [id number] Route of 3ML/3000ML OF NS Administration IRRIGATION [...] [facility] IntraOp Patient Positioning Audit 04/28/19 08:17:49 Supervisor Frame Assembly: LONGGA Modifier: LONGGA 1 <*> Procedure Knee [...] [facility] IntraOp Surgical Procedures Audit 04/28/19 08:31:50 Supervisor Frame Assembly: LONGGA Modifier: LONGGA 1 <*> Procedure Knee Arthroscopy 1 <+> Stop 04/28/19 08:27:35 Supervisor Frame Assembly: LONGGA Modifier: LONGGA 1 <*> Procedure Knee Arthroscopy 1 <*> Additional Procedure Description RIGHT KNEE ARTHROSCOPY FOR RETROPATELLAR CHONDROPLASTY AND PARTIAL MENISCECTOMY 04/28/19 08:21:54 Supervisor Frame Assembly: LONGGA Modifier: LONGGA 1 <*> Procedure Knee Arthroscopy 1 <*> Additional Procedure Description LEFT KNEE ARTHROSCOPY FOR RETROPATELLAR CHONDROPLASTY AND PARTIAL MENISCECTOMY [facility] IntraOp Temp Regulation Devices Entry 1 Temp Regulation Temperature Forced Air Warming Regulation Device device Temperature 4765 Regulation Device Serial/Unit Number Temperature Upper body Regulation Site Temperature FARRAH MANE, DYE ROOM HELPER Regulation Device Applied by Last Modified By: [...] 08:31:38 [facility] IntraOp Tourniquet Audit 04/28/19 08:31:38 Supervisor Frame Assembly: EMBER Modifier: EMBER <+> 1 Stop Time Case Comments <None> Finalized By: ARIA MELCHOR, RN Document Signatures Signed By: ARIA MELCHOR RN 04/28/19 08:39 Electronically signed by May [facility] Conversion Machine Cementer Cerner at 07/23/2022 4:21 PM CDT documented in this encounter Plan of Treatment Not on file documented as of this encounter Visit Diagnoses Not on filedocumented in this encounter Care Teams Vegetable Thinner Relationship Specialty Start Date End Date Leslee, Provider Not In The System, [place] [address] PCP - General 04/16/23 documented as of this encounter
--- OUTSIDE RECORDS SUMMARY | 2025-01-15 14:31 | XMS_ITS | Encounter Summary ---
Author Organization Healthcare Address [address] [place] [address] Care Team Providers Care Reach Truck Operator Name Role Phone Chandra Leahy MD Primary Care Provider + [phone] Timothy Granda DO Primary Care Provider [phone] Sadia Campo PRODUCTION BROACHING MACHINE OPERATOR Unavailable Unavailable Encounter Details Date Type Department Care Team (Late st Contact Info) Description 08/14/2022 Lab Requisition [facility] [address] [place] [address] Dilip Lloyd MD [address] [address] Encounter for general adult medical [...] drink first t mini in the morning (EYE-CUPOLA MELTER) to steady your nerves or to get [...] EDT Office Visit Professional [facility] Nephrology, Bone & Mineral Metabolism [address], [address] [place] [address] Gutierrez Domínguez MD [address] [place] [address] documented as of this encounter [...] LAB MICROBIOLOGY - GENERAL ORDERABLES Final Result [facility] [address] [place] [address] documented in this encounter Visit Diagnoses Diagnosis Encounter for general adult medical examination without abnormal findings documented in this encounter Additional Health Concerns Infection Onset Date Last Indicated Resolved Time COVID-19 Rule-Out 07/22/2023 07/22/2023 07/22/2023 12:14 PM EDT C. difficile Rule-Out 07/26/2023 08/01/20232023 1:07 AM EDT Gastrointestinal Rule-Out 08/02/2023 08/01/2023 3:00 AM EDT documented as of this encounter Care Teams Reach Truck Operator Relationship Specialty Start Date End Date Chandra Leahy MD [address] [place] [address] PCP - General 08/02/22 05/24/23 Timothy Granda DO [address] [place] [address] PCP - General 05/25/23 [place] [address] Clinic Nurse Power Press Supervisor 08/03/22 06/21/24 documented as of this encounter
--- OUTSIDE RECORDS SUMMARY | 2025-01-15 14:31 | XMS_ITS | Encounter Summary ---
Author Organization [facility] Address [address], [address] [place] [address] Care Team Providers Care Sweatband Shaper Name Role Phone Unavailable Primary Care Provider Unavailabl e Reason for Visit * Reason Onset Date Comments Surgery Scheduling 10/10/2024 Encounter Details Date Type Department Care Team (Late st Contact Info) Description 10/10/2024 Telephone [facility] [address] [place], [place] [id number] Sharon Paulino MD [address] [place] [address] [address] [place] [address] Surgery Scheduling Social History Tobacco [...]
--- OUTSIDE RECORDS SUMMARY | 2025-01-15 14:31 | XMS_ITS | Encounter Summary ---
Author Organization [employer] ([place], [place], [place], [place]) Address [address] [place] [address] Care Team Providers Care Sling Operator Name Role Phone [facility], Provider Not In The System Primary Care Provider Unavailable Encounter Details Date Type Department Care Team (Late st Contact Info) Description 04/28/2019 Transcribed Document [facility] [place] [address] [place] [address] ProviderJean-Claude MD [address], [place] [id number] Social History Tobacco Use Types Packs/Day Years Used Date Smoking Tobacco: Never Assessed Comments Unknown Sex and Gender Information Value Date Recorded Sex Assigned at Not on file Legal Sex Female 5:42 PM CDT Gender Identity Not on file Sexual Orientation Not on file documented as of this encounter Miscellaneous Notes * Cerner Conversion Note - Historical ProviderMD - 04/28/2019 8:05 AM ASSISTANT HVAC MECHANIC [facility] Main OR PACU Summary Primary Physician: MADISON OSPINA MD-ORShantel Finalized Date/Time: 04/28/19 09:40:55 Pt. Name: MOISE ATKINSON/Sex: 1950 Female Med Rec #: [id number] Physician: MADISON OSPINA MD-ORT Financial #: [id number] Pt. Type: O Room/Bed: Admit/Disch: 04/28/19 05:30:00 - Institution: [facility] OR PACU Case Times Entry 1 In PACU I 04/28/19 08:38:00 Ready for PACU 04/28/19 09:33:00 Discharge Discharge from PACU 04/28/19 09:33:00 I Last Modified By: Eduarda Patel Rn Patient Care Bedside 04/28/19 09:40:12 [facility] Main OR PACU Case Times Audit 04/28/19 09:40:12 Field Sales Specialist: SADE Modifier: SADE <+> 1 Ready for PACU Discharge <+> 1 Discharge from PACU I Finalized By: Eduarda Patel Rn Patient Care Bedside Document Signatures Signed By: Eduarda Patel Rn Patient Care Bedside 04/28/19 09:40 Electronically signed by May [facility] Conversion Workers Compensation Analyst Cerner at 07/23/2022 4:28 PM CDT documented in this encounter Plan of Treatment Not on file documented as of this encounter Visit Diagnoses Not on filedocumented in this encounter Care Teams Sling Operator Relationship Specialty Start Date End Date [facility], Provider Not In The System, [place] [address] PCP - General 04/16/23 documented as of this encounter
--- OUTSIDE RECORDS SUMMARY | 2025-01-15 14:31 | XMS_ITS | Encounter Summary ---
Author Organization [facility] Address [address] [place] [id number] Care Team Providers Care Mophead Sewer Name Role Phone GabrielTimothy armenta Primary Care Provider [phone] Reason for Visit * Reason Comments Med Refill Encounter Details Date Type Department Care Team (Late st Contact Info) Description 12/22/2021 Refill [facility] FAMILY MEDICINE [address] [place] [address] Connor Nunez MD [address] [place] [address] Chronic arthritis associated with viral [...] documented as of this encounter Care Teams Mophead Sewer Relationship Specialty Start Date End Date Timothy Granda DO [address] [place] [address] SHANLAURA CLEM [address] PCP - General Internal Medicine 06/12/23 documented as of this encounter
[2025-01-15 14:57] LABS: Hematocrit 35.9 % (37.0-47.0); Hemoglobin 11.5 g/dL (12.2-16.2); Immature Granulocytes % 0.4 %; Mean Corpuscular HGB Conc 32.0 g/dL (31.8-35.4); Mean Corpuscular Hemoglobin 29.6 pg (27.0-31.2); Mean Corpuscular Volume 92.5 fl (81-99); Nucleated Red Blood Cells % 0 %; Platelet Count 346 K/mm3 (142-424); Red Blood Count 3.88 M/mm3 (4.20-5.40); Red Cell Distribution Width-SD 47.8 fL; White Blood Count 8.1 K/mm3 (4.8-10.8)
[2025-01-15 15:00] LABS: Bilirubin,Urine Negative (Negative); Color,Urine YELLOW (Yellow); Glucose,Urine (UA) Negative (Negative); Ketones,Urine Negative (Negative); Leukocyte Esterase,Urine Negative (Negative); PH,Urine 6.0 (5.0-8.5); Protein,Urine Negative (Negative); Specific Gravity, Urine >= 1.030 (1.005-1.030); Urobilinogen,Urine 0.2 EU/dl (0.2)
[2025-01-15 15:12] LABS: WBC,Urine Occasional #/hpf (0-3)
[2025-01-15 15:13] LABS: Bacteria,Urine Trace /lpf; Squamous Epithelial Cell,Urine Occasional #/hpf (0-5)
[2025-01-15 15:39] LABS: Albumin Level 4.1 g/dl (3.5-5.0); Anion Gap 18.5 mEq/L (5-15); Blood Urea Nitrogen 16 mg/dl (7-17); Calcium 9.1 mg/dl (8.4-10.2); Carbon Dioxide 21 mmol/L (22.0-30.0); Chloride 103 mmol/L (98-107); Creatinine,Serum 1.30 mg/dl (0.52-1.04); Estimated Glomerular Filt Rate 40 ml/min (>60); GFR (African American) 49 ML/MIN (>60); Glucose 98 mg/dl (74-100); Phosphorous 4.5 mg/dl (2.5-4.5); Potassium 4.5 mmoL/L (3.5-5.1); Sodium 138 mmol/L (136-145)
[2025-01-15 15:55] LABS: 25-OH Vitamin D, Total 31.5 ng/mL (30-100)
== END 2025-01-15 23:59 | disposition home or self-care (01) ==
LOC: LAB 14:14
PROVIDERS: PCP Family Medicine; Visit Provider Student in an Organized Health Care Education/Training Program
DX: N17.9 Acute kidney failure, unspecified (principal); E55.9 Vitamin D deficiency, unspecified
CPT/HCPCS: 36415; 80069; 81001; 82306; 82570; 83970; 84156; 85025

== ENCOUNTER 2025-01-25 00:27 | Emergency (ER) | payer MEDICARE, SELFPAY ==
--- OUTSIDE RECORDS SUMMARY | 2024-04-17 07:45 | XMS_ITS ---
Author Organization [facility] Address [address] [place] [address] Care Team Providers Care Construction Specialist Name Role Phone Timothy Granda DO Primary Care Provider Tha Chaudhry Unavailable [phone] Jesus Rose Unavailable REASON FOR VISIT NEW PATIENT Encounters Encounter Location Date Provider Diagnosis [facility] [address] [place] [address] 04/17/2024 Jesus Rose Plan Of Treatment No Information Progress Notes * KRISTACIERRA MonroeMaryellenOB:[birth year] (74 yo F)Acc No.[id number]:04/17/2024 Progress Notes Patient: Farrah SEAY Provider: Leelee Rose :1950 A ge:73 Y S ex:Female Date:04/17/2024 [facility] Pcp:Timothy Granda DO Subjective: * Chief Complaints: * 1 . NEW PATIENT. * Medical History: Objective: * Vitals: Assessment: Plan: * Treatment: * * Electronic signature of Reza Rose APRN on 01/25/2025 at 12:37 AM EDT Sign off status: Pending * Provider: Leelee Rose Date: 0 04/17/2024 Generated for Brisa conway/Sahra/Angela on: 12:37 AM EDT
--- OUTSIDE RECORDS SUMMARY | 2024-05-13 09:30 | XMS_ITS ---
Author Organization [facility] Address [address] [place] [address] Care Team Providers Care Manager Oracle Database Name Role Phone Timothy Granda DO Primary Care Provider Tha Chaudhry Unavailable [phone] REASON FOR VISIT NEW PATIENT Encounters Encounter Location Date Provider Diagnosis [facility] [address] [place] [address] 05/13/2024 Tha Krishnamurthy Plan Of Treatment No Information Progress Notes * Giselle ATKINSONOB:[birth year] (74 yo F)Acc No.[id number]:05/13/2024 Progress Notes Patient: Farrah SEAY Provider: Sarabjit Krishnamurthy MD :1950 A ge:73 Y S ex:Female Date:05/13/2024 [facility] Pcp:Timothy Granda DO Subjective: * Chief Complaints: * 1 . NEW PATIENT. * Medical History: Objective: * Vitals: Assessment: Plan: * Treatment: * * Electronic signature of Didier Krishnamurthy MD on 01/25/2025 at 12:37 AM EDT Sign off status: Pending * Provider: Sarabjit Krishnamurthy MD Date: 0 05/13/2024 Generated for Brisa conway/Sahra/eTnamsmitting on: 12:37 AM EDT
--- OUTSIDE RECORDS SUMMARY | 2024-06-17 09:30 | XMS_ITS ---
Author Organization [facility] Address [address] [place] [address] Care Team Providers Care Editor Farm Journal Name Role Phone Timothy Granda DO Primary Care Provider Tha Chaudhry [facility] [phone] REASON FOR VISIT NEW PATIENT Encounters Encounter Location Date Provider Diagnosis [facility] [address] [place] [address] 06/17/2024 Tha Krishnamurthy Plan Of Treatment No Information Progress Notes * Giselle ATKINSONOB:[birth year] (74 yo F)Acc No.[id number]:06/17/2024 Progress Notes Patient: Farrah SEAY Provider: Sarabjit Krishnamurthy MD :1950 A ge:73 Y S ex:Female Date:06/17/2024 [facility] Pcp:Timothy Granda DO Subjective: * Chief Complaints: * 1 . NEW PATIENT. * Medical History: Objective: * Vitals: Assessment: Plan: * Treatment: * * Electronic signature of Didier Krishnamurthy MD on 01/25/2025 at 12:38 AM EDT Sign off status: Pending * Provider: Sarabjit Krishnamurthy MD Date: 0 06/17/2024 Generated for Brisa conway/Sahra/eTnamsmitting on: 12:38 AM EDT
[2025-01-25] VITALS (12 sets, daily range): BP systolic 175–278; BP diastolic 74–90; PULSE 77–92; RESP 16; TEMP 36.5; O2SAT 93–100; BMI 25.0; BMI 28.3
--- NOTE | 2025-01-25 00:36 | ED_ITS ---
Discharge Plan Disposition Patient Disposition: Home, Self-Care Prescriptions Prescriptions: No Action amitriptyline 50 mg tablet 50 mg PO HS Qty: 30 12RF aripiprazole 2 mg tablet 2 mg PO DAILY estradiol 0.25 mg/0.25 gram (0.1 %) gel in packet 1 packet transdermal DAILY sulfamethoxazole-trimethoprim 400-80 mg tablet 1 tab PO DAILY 90 Days Qty: 90 3RF nystatin 100,000 unit/gram cream 1 applic TOPICAL BID Qty: 30 5RF tretinoin [Retin-A] 0.05 % cream 1 applic topical HS Qty: 45 2RF hydromorphone 4 mg tablet 4 mg PO Q4HP PRN (Reason: Severe Pain (Scale Score 7-10)) Qty: 60 0RF oxycodone 10 mg tablet 10 mg PO Q4HP MDD No> 6/day PRN (Reason: Moderate Pain (Scale Score 5-6)) Qty: 180 0RF ergocalciferol (vitamin D2) 1,250 mcg (50,000 unit) capsule 1,250 mcg PO WEEKLY Qty: 4 1RF atorvastatin 40 mg tablet 40 mg PO DAILY Qty: 90 3RF diphenoxylate-atropine 2.5-0.025 mg tablet 1 tab PO TID 90 Days Qty: 270 3RF tizanidine 4 mg tablet See Rx Instructions .ROUTE .COMPLEX Qty: 90 0RF Dose Instruction: TAKE 1 TABLET BY MOUTH THREE TIMES DAILY NEEDED FOR MUSCLE SPASTICITY MAY CAUSE DROWSINESS Rx Instructions: TAKE 1 TABLET BY MOUTH THREE TIMES DAILY NEEDED FOR MUSCLE SPASTICITY MAY CAUSE DROWSINESS furosemide 40 mg tablet 40 mg PO DAILYP PRN (Reason: Edema) Qty: 30 1RF clonidine HCl 0.1 mg tablet See Rx Instructions .ROUTE .COMPLEX Qty: 180 0RF Dose Instruction: TAKE ONE TO TWO TABLETS BY MOUTH 2 TO 3 TIMES A DAY NEEDED FOR ANXIETY MAY CAUSE DROWSINESS Rx Instructions: TAKE ONE TO TWO TABLETS BY MOUTH 2 TO 3 TIMES A DAY NEEDED FOR ANXIETY MAY CAUSE DROWSINESS amlodipine 5 mg tablet 5 mg PO HS Qty: 90 3RF levothyroxine 25 mcg tablet 25 mcg PO DAILY Qty: 90 3RF losartan 50 mg tablet 75 mg PO DAILY Qty: 135 3RF sulfamethoxazole-trimethoprim 800-160 mg tablet 1 tab PO BID 5 Days Qty: 10 0RF dicyclomine 10 mg capsule 10 mg PO TIDP PRN (Reason: abdominal pain) ciclopirox 0.77 % gel 1 applic topical DAILY Rx Instructions: Apply daily to affected toenail. Smooth with emery board weekly. duloxetine 60 mg capsule,delayed release(DR/EC) 120 mg PO DAILY Referrals Follow up/Referrals: Connor Gomez MD [Primary Care Provider, Family Practice] - See instructions Activity Restrictions/Add. Instructions Additional Instructions/Restrictions: Recommend taking escalating doses of MiraLAX until you clear your bowels. Please follow-up with your primary care provider. Please return to the emergency department if you develop any new or worsening symptoms or become concerned for your health. Clinical Impressions Clinical Impression: Abdominal pain, Constipation Instructions Patient Instructions: DI for Acute Abdominal Pain Print Language Print Language: [place] Discharge ED Provider: Manjit Barahona General Adult HPI General Chief complaint: Abdominal Pain Stated complaint: Abdominal Pain;Emesis Time Seen by Provider: 01/25/25 00:36 History of Present Illness HPI narrative: 74-year-old female with history of her ectomy daily and is, history of of hypertension and chronic opiate use. Dents for abdominal pain. She has been having abdominal pain for the last week or so but worse today. Associated with some nausea and vomiting. She reports that she has been having normal ostomy output. Related Data Home Medications ?Medication ?Instructions ?Recorded ?Confirmed aripiprazole 2 mg tablet 2 mg PO DAILY 05/09/2401/15 ciclopirox 0.77 % topical gel 1 applic topical DAILY 0 11/30/24 01/15/25 dicyclomine 10 mg capsule 10 mg PO TIDP PRN abdominal pain 11/30/24 01/15/25 duloxetine 60 mg capsule,delayed 120 mg PO DAILY 11/3001/15/25 release estradiol 0.25 mg/0.25 gram (0.1 1 packet transdermal DAILY 01/08/25 01/15/25 %) transdermal gel packet Previous Rx's ?Medication ?Instructions ?Recorded amitriptyline 50 mg tablet 50 mg PO HS #30 tabs ergocalciferol (vitamin D2) 1,250 1,250 mcg PO WEEKLY #4 caps 04/07/25 mcg (50,000 unit) capsule atorvastatin 40 mg tablet 40 mg PO DAILY #90 tabs 09/30 10/24 diphenoxylate-atropine 2.5 1 tab PO TID 90 days #270 t abs 11/26/24 mg-0.025 mg tablet tizanidine 4 mg tablet See Rx Instructions .Route 1 .COMPLEX #90 ea furosemide 40 mg tablet 40 mg PO DAILYP PRN Edema #3 0 tabs 01/02/25 clonidine HCl 0.1 mg tablet See Rx Instructions .Route 01/07/25 .COMPLEX #180 tabs hydromorphone 4 mg tablet 4 mg PO Q4HP PRN Severe Pain 01/08/25 (Scale Score 7-10) #60 tabs nystatin 100,000 unit/gram topical 1 applic topical BI D Rash #30 grams 01/08/25 cream oxycodone 10 mg tablet 10 mg PO Q4HP PRN Moderate P ain 01/08/25 (Scale Score 5-6) #180 tabs sulfamethoxazole 400 1 tab PO DAILY 90 days #90 t abs 01/08/25 mg-trimethoprim 80 mg tablet tretinoin 0.05 % topical cream 1 applic topical HS #45 grams 01/08/25 (Retin-A) amlodipine 5 mg tablet 5 mg PO HS #90 tabs 01/11/25 levothyroxine 25 mcg tablet 25 mcg PO DAILY #90 tabs 1 losartan 50 mg tablet 75 mg (1.5 x 50 mg) PO DAILY #135 01/11/25 tabs sulfamethoxazole 800 1 tab PO BID 5 days #10 tabs 01/12/25 mg-trimethoprim 160 mg tablet Allergies Allergy/AdvReac Type Severity Reaction Status Date / Time ciprofloxacin (From Cipro) Allergy Intermediate Muscle Pain Verified 01/15/25 11:20 levofloxacin (From Levaquin) AdvReac Rash Verified 01/15/25 11:20 [facility] Disclaimer: The information contained in this section may have been updated after the patient was seen, as this information can be updated by other users. Medical History (Updated 01/25/25 @ 03:19 by Manjit Barahona MD) Left foot pain Right foot injury Chronic kidney disease TIP (acute kidney injury) Systolic murmur Bowel wall thickening Ischemic bowel disease Hypertension Paroxysmal atrial fibrillation Aftercare following bilateral knee joint replacement surgery C. difficile diarrhea Colostomy in place Perforated sigmoid colon Elevated liver enzymes Ileus Abnormal electrocardiogram [ECG] [EKG] Abdominal pain Hypothyroidism IBS (irritable bowel syndrome) HLD (hyperlipidemia) HTN (hypertension), benign Hypokalemia Hypokalemia due to loss of potassium Surgical History H/O ileostomy History of total right hip replacement History of arthroscopy of left shoulder Family History Other Anemia Asthma Cancer Hyperlipidemia Social History Smoking Status: Never smoker second hand exposure: No alcohol intake: never current occupational status: retired Travel in the last 8 weeks?: None household members: spouse housing: house current occupational exposures/hazards: No caffeine: No Have you lived/traveled outside [place] in past 30 days?: No Contact w/someone who lives/traveled outside US past 30 days?: No Exposure to someone with infectious disease in past 14 days?: No Do you have a fever (greater than 100.4 F or 38 C)?: No Have you tested positive for COVID-19?: No Exposed to someone with COVID-19 in past 14 days?: No Do you have a sore throat?: No Do you have a cough?: No Do you have any weakness?: No Do you have any diarrhea?: No Are you experiencing any unusual bleeding?: No Do you have any muscle aches/pain?: No Do you have any abdominal pain?: Yes Are you experiencing loss of taste or smell?: No Other Medical History Have you received the Flu Vaccine for this season: No Have you received the Pneumonia Vaccine: Yes ROS Obtained: Yes All systems reviewed & no additional complaints except as documented Physical Exam General General appearance: alert and in no apparent distress Head Head exam: atraumatic and normocephalic Eye Eye exam: Present normal appearance, PERRL and EOMI ENT ENT exam: Present normal oropharynx and normal external ear exam Neck Neck exam: Present normal inspection and full ROM Chest Chest inspection: Present normal inspection and symmetric chest wall rise; Absent tenderness Respiratory Respiratory exam: Present normal lung sounds bilaterally; Absent respiratory distress Cardiovascular Cardiovascular exam: Present regular rate and normal rhythm Abdominal Exam Abdominal exam: Present soft and tenderness (Mild, generalized); Absent distention or guarding Extremities Exam Extremities exam: Present normal inspection; Absent edema or joint swelling Back Exam Back exam: Present normal inspection; Absent tenderness Neurological Exam Neurological exam: Present alert and oriented X3; Absent motor sensory deficit Psychiatric Psychiatric exam: Present normal affect and normal mood Skin Skin exam: Present warm, dry and normal color Lymphatic Lymphatic Findings: no adenopathy Medical Decision Making Medical Records Medical records reviewed: Yes I reviewed the patient's medical records. Screening: Per USPSTF and CDC recommendations, given the prevalence of disease in our region, it is our hospital?s policy to screen for HIV and viral Hepatitis for all patients aged 18 and over and those with ongoing risk factors. Beto Inquiry Pt receiving controlled substance: No Beto was queried for this patient: No Vital Signs: 01/25/25 00:43 01/25/25 01:07 01/25/25 01:16 Temperature 97.7 F Temperature Source Oral Pulse Rate 78 77 Pulse Rate [Right] 78 Respiratory Rate 16 Blood Pressure 278/81 H 210/88 H Blood Pressure [Right Arm] 231/90 H Blood Pressure Mean 146 128 Blood Pressure Mean [Right Arm] 137 Blood Pressure Source Blood Pressure Source [Right Arm] Automatic Cuff Blood Pressure Position Blood Pressure Position [Right Arm] Sitting 02 Sat by Pulse Oximetry 100 100 100 Oxygen Delivery Method Room Air 01/25/25 01:31 01/25/25 02:15 01/25/25 02:24 Temperature Temperature Source Pulse Rate 92 H 91 H Pulse Rate [Right] Respiratory Rate Blood Pressure 209/87 H 175/74 H Blood Pressure [Right Arm] Blood Pressure Mean 127 107 Blood Pressure Mean [Right Arm] Blood Pressure Source Blood Pressure Source [Right Arm] Blood Pressure Position Blood Pressure Position [Right Arm] 02 Sat by Pulse Oximetry 98 95 Oxygen Delivery Method Room Air 01/25/25 02:24 01/25/25 02:30 01/25/25 02:30 Temperature Temperature Source Pulse Rate 87 86 Pulse Rate [Right] Respiratory Rate Blood Pressure 179/79 H Blood Pressure [Right Arm] Blood Pressure Mean 110 Blood Pressure Mean [Right Arm] Blood Pressure Source Blood Pressure Source [Right Arm] Blood Pressure Position Blood Pressure Position [Right Arm] 02 Sat by Pulse Oximetry 93 L 94 L Oxygen Delivery Method Room Air Room Air 01/25/25 02:45 01/25/25 03:00 01/25/25 03:01 Temperature Temperature Source Pulse Rate 87 83 Pulse Rate [Right] Respiratory Rate Blood Pressure 179/77 H Blood Pressure [Right Arm] Blood Pressure Mean 111 Blood Pressure Mean [Right Arm] Blood Pressure Source Blood Pressure Source [Right Arm] Blood Pressure Position Blood Pressure Position [Right Arm] 02 Sat by Pulse Oximetry 95 98 Oxygen Delivery Method Room Air Room Air 01/25/25 03:01 01/25/25 03:15 01/25/25 03:31 Temperature 97.7 F Temperature Source Pulse Rate 83 84 84 Pulse Rate [Right] Respiratory Rate 16 Blood Pressure 179/77 H Blood Pressure [Right Arm] Blood Pressure Mean Blood Pressure Mean [Right Arm] Blood Pressure Source Automatic Cuff Blood Pressure Source [Right Arm] Blood Pressure Position Sitting Blood Pressure Position [Right Arm] 02 Sat by Pulse Oximetry 98 97 Oxygen Delivery Method Room Air Room Air Room Air Lab Data Lab results reviewed: Yes I reviewed the patient's lab results. Lab Results 01/25/25 00:33: Urine Color Yellow, Urine Appearance Clear, Urine pH 6.0, Ur Specific [place] 1.015, Urine Protein Negative, Urine Glucose (UA) Negative, Urine Ketones Negative, Urine Blood Negative, Urine Nitrate Negative, Urine Bilirubin Negative, Urine Urobilinogen 0.2, Ur Leukocyte Esterase Negative, Ur Squamous Epith Cells 3-5, Urine Bacteria Trace 01/25/25 01:05: WBC 14.8 H, RBC 4.79, Hgb 14.1, Hct 44.0, MCV 91.9, MCH 29.4, MCHC 32.0, RDW 13.4, Plt Count 446 H, MPV 8.9, Neut % (Auto) 65.3, Lymph % (Auto) 25.9, [place] % (Auto) 4.8, Eos % (Auto) 3.3, Baso % (Auto) 0.4, Neut # (Auto) 9.6 H, Lymph # (Auto) 3.8, [place] # (Auto) 0.7, Eos # (Auto) 0.5 H, Baso # (Auto) 0.1, Sodium 135 L, Potassium 4.8, Chloride 99, Carbon Dioxide 26, Anion Gap 14.8, BUN 21 H, Creatinine 1.20 H, Estimated Creat Clear 48, Estimated GFR 44 L, Est GFR ( Amer) 53 L, Glucose 150 H, Calcium 9.7, Total Bilirubin 0.5, AST 37 H, ALT 28, Alkaline Phosphatase 173 H, Total Protein 8.4 H D, Albumin 4.4, Globulin 4.0 H, Albumin/Globulin Ratio 1.1, Lipase 54 01/25/25 01:05 01/25/25 01:05 Orders (Tests/Meds): ED MEDICATIONS Discontinued Medications Generic Name Dose Route Start Last Admin Trade Name Freq PRN Reason Stop Dose Admin Amlodipine Besylate 5 mg 01/25/25 01:18 01/25/25 01:20 Amlodipine 5mg Tablet PO 01/25/25 01:19 5 mg ONCE ONE Administration Hydromorphone HCl 1 mg 01/25/25 00:41 01/25/25 01:06 Hydromorphone 2mg/Ml Syringe IV 01/25/25 00:42 1 mg ONCE ONE Administration Hydromorphone HCl 0.5 mg 01/25/25 03:19 01/25/25 03:22 Hydromorphone 2mg/Ml Syringe IV 01/25/25 03:20 0.5 mg ONCE ONE Administration Iopamidol 140 ml 01/25/25 02:10 01/25/25 02:14 Iopamidol-370 (76%);100ml Bottle IV 01/25/25 02:11 Not Given ONCE ONE Iopamidol 160 ml 01/25/25 02:10 01/25/25 02:13 Iopamidol-370 (76%);100ml Bottle IV 01/25/25 02:11 160 ml ONCE ONE Administration Ketorolac Tromethamine 30 mg 01/25/25 00:41 01/25/25 01:07 Ketorolac 30mg/Ml Vial IV 01/25/25 00:42 30 mg ONCE ONE Administration Ondansetron HCl 4 mg 01/25/25 00:50 01/25/25 01:07 Ondansetron 4mg/2ml Vial IV 01/25/25 00:51 4 mg ONCE ONE Administration Sodium Chloride 50 ml 01/25/25 02:10 01/25/25 02:13 0.9 % Sodium Chloride 50 Ml Vial IV 01/25/25 02:11 50 ml ONCE ONE Administration Sodium Chloride 10 ml 01/25/25 02:10 01/25/25 02:13 Sodium Chloride 0.9% 10ml Syr (Rad Only) IV 01/25/25 02:11 10 ml ONCE ONE Administration ORDERS Category Date Time Status CT angio abdomen pelvis Stat Cat Scan 01/25/25 00:41 Completed CBC w/Auto Diff [Complete Blood Count Auto Diff] Stat Lab 01/25/25 01:05 Completed CMP [Comprehensive Metabolic Panel] Stat Lab 01/25/25 01:05 Completed Lipase Stat Lab 01/25/25 01:05 Completed UA [Urinalysis and Microscopic] Stat Lab 01/25/25 00:33 Completed Medical Decision Narrative: 74-year-old female with history of exocrine pancreatic insufficiency, prior colectomy, hypertension presents for worsening abdominal pain, now with nausea and intermittent vomiting. History was obtained via interactive discussion with patient, family, chart review. On arrival, patient is afebrile, markedly hypertensive, GCS 15, moving all extremities spontaneously. Full physical exam performed and significant for mild generalized abdominal tenderness Differential includes but is not limited to pancreatitis, gastroenteritis, colitis, constipation, aortic pathology. Patient was given Dilaudid, Zofran, Toradol, Tylenol for symptomatic management and correction of underlying abnormalities. Workup initiated including CBC CMP lipase UA CT angio abdomen and pelvis to assess for aortic pathology. On re-evaluation, patient blood pressure significant improved after amlodipine and pain control medications Laboratory workup independently interpreted by me and significant for mild leukocytosis, stable renal function. Imaging independently interpreted by me and significant for large stool burden proximal to the ileostomy, no obvious obstruction, no evidence of pancreatitis or colitis or cholecystitis. See radiology read for full review of final results. Pain is improved on reassessment. Blood pressure continues to improve. Given patient history, exam and workup, patient's presentation most likely represents constipation. I discussed with patient the options including doing an enema in the ileostomy site versus doing MiraLAX at home. Patient would like to do MiraLAX at home. Patient was discharged in stable condition with return precautions. Procedures Risk/Benefits of Procedure(s) Were Explained: Yes Critical Care Critical Care Time Critical Care Time: No
--- OUTSIDE RECORDS SUMMARY | 2025-01-25 00:36 | XMS_ITS | Clinical Summary ---
Author Organization [facility] Address [address], [address] [place] [address] Care Team Providers Care Scarrer Name Role Phone Unavailable Primary Care Provider [...] (ZANAFLEX) 4 MG tablet 03/20/2024 Active CREON 38921-280097 units CPEP delayed release capsule TAKE ONE [...] Type Department Care Team Description 12/08/2024 Telephone [facility], [place] [address] Sharon Paulino MD Surgery Scheduling 11/21/2024 Telephone [facility] [address] [id number] Willa Lan RN Care Coordination (Nurse navigator) 11/20/2024 Telephone [facility] [address] [place] [phone] Sharon Paulino MD Surgery Scheduling ( [facility]) 11/05/2024 Prep for Procedure [facility] [address] [place] [address] [phone] Laisha Galvan MA History of total replacement [...] of 2 - Risk 2-dose series) 09/26/1970 Breast cancer screen 1991 Colonoscopy 09/26/1996 Colorectal Cancer Screen 09/26/1996 FIT/FOBT: Average risk 09/26/1996 Fecal-DNA (Cologuard): Average risk 09/26/1996 Sigmoidoscopy/CT colonography 09/26/1996 Shingles vaccine (1 of 2) 09/26/2001 DEXA (modify frequency per FRAX score) 09/26/2006 Hepatitis B vaccine (1 of 3 - [...] ID:Not on file Type:Not on file Address: [address]
--- OUTSIDE RECORDS SUMMARY | 2025-01-25 00:36 | XMS_ITS | Clinical Summary ---
Author Organization [facility] , [facility] Address [address] [place] [address] Phone Care Team Providers Care Reshipping Clerk Name Role Phone Tosin VARGAS, Chandra Flores Unavailable [phone] Chel VARGAS, Davidson Unavailable [phone] Timothy Granda Primary Care Provider Unavailabl e Reason for Visit and Chief Complaint The Chief Complaint is: Left shoulder pain Problems Includes: Problems addressed during this encounter and other active Problems All Visits Onset Date Resolved Date Provider Condition S tatus Joint Pain Shoulder Left 03/16/2023 Funim Robles PA-C Active Last Documented On 3 10:30AM ; [facility] Joint Pain Left Knee 03/31/2022 Jesus giles MD Active Last Documented On 2 10:01AM ; [facility] Joint Pain Right Knee 02/12/2019 Timothy dye MD Active Last Documented On 9 10:35AM ; [facility] Joint Pain Hip Right 02/12/2019 Timothy Foster MD Active Last Documented On 9 10:35AM ; [facility] Joint Pain Shoulder 05/29/2018 Bautista christie MD Active Last Documented On 9 10:31AM ; [facility] Plan of Treatment Fall Risk [...] - Last Documented On 05/01/2023 3:50PM ; [facility] This is a very complex [...] - Last Documented On 05/01/2023 3:50PM ; [facility] Instructions to patient Lose weight Last Documented On 2:05PM ; [facility] Assessments Includes: Assessments from this encounter Findings - Overweight - Last Documented On 05/01/2023 3:50PM ; [facility] Status post left total shoulder arthroplasty done at an outside institution over a decade ago with signs and symptoms consistent with 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 Patient has severe pain and significant loss of function despite modification of activities utilization of anti-inflammatories. - Last Documented On 05/01/2023 3:50PM ; [facility] She is also status post a right total shoulder replacement done by me several years ago which seems to be per her report functioning well. - Last Documented On 05/01/2023 3:50PM ; [facility] Instructions Includes: Instructions from this encounter Instructions to patient Lose weight Last Documented On 4 2:05PM ; [facility] Medical Equipment - Implanted Devices Includes: Current Devices No Medical Equipment Recorded Medications Includes: Medications discussed during this encounter and other current Medications Current Medications (continue as prescribed) Acyclovir 400 MG Oral Tablet 01/27/2024 Provider: Diagnosis: Last Documented On 4 2:44PM By Karen Ornelas ; [facility], [facility] oxyCODONE HCl 10 MG Oral Tablet 01/22/2024 Provider: Diagnosis: Last Documented On 4 2:44PM By Karen Ornelas ; [facility], [facility] Dicyclomine HCl 10 MG Oral Capsule 01/22/2024 Provid er: CASTILLO ESPINO II, MD Diagnosis: Last Documented On 4 2:44PM By Karen AMBRIZ [facility], [facility] tiZANidine HCl 4 MG Oral Tablet 01/18/2024 Provider: Diagnosis: Last Documented On 4 2:44PM By Karen AMBRIZ [facility], [facility] Sulfamethoxazole-Trimethoprim 400-80 MG Oral Tablet Provider: Diagnosis: Last Documented On 4 2:44PM By Karen AMBRIZ [facility], [facility] DULoxetine HCl 60 MG Oral Capsule Delayed Releas e Particles 01/18/2024 Provider: Diagnosis: Last Documented On 4 2:44PM By Karen Ornelas ; [facility], [facility] HYDROmorphone HCl 4 MG Oral Tablet 01/08/2024 Provid er: Diagnosis: Last Documented On 4 2:44PM By Karen Ornelas ; [facility], [facility] Fluticasone-Salmeterol 100-5 0 MCG/ACT Inhalation Aerosol Powder Breath Activated 01/08/2024 Provider: Diagnosis: Last Documented On 4 2:44PM By Karen Ornelas ; [facility] Atorvastatin Calcium 40 MG Oral Tablet 01/08/2024 Pr ovider: Diagnosis: Last Documented On 4 2:44PM By Karen Ornelas ; [facility] Levothyroxine Sodium 25 MCG Oral Tablet 12/31/2023 P rodennisder: Diagnosis: Last Documented On 4 2:44PM By Karen Ornelas ; [facility], [facility] Eliquis 5 MG Oral Tablet 12/31/2023 Provider: Diagnosis: Last Documented On 4 2:44PM By Karen Ornelas ; [facility] Atorvastatin Calcium 20 MG Oral Tablet 12/31/2023 Pr ovider: Diagnosis: Last Documented On 4 2:44PM By Karen Ornelas ; [facility] amLODIPine Besylate 5 MG Oral Tablet 12/10/2023 Prov ider: Diagnosis: Last Documented On 4 2:44PM By Karen Ornelas ; [facility], [facility] Albuterol Sulfate 108 (90 Ba se) MCG/ACT Inhalation Aerosol Powder Breath Activated 06/15/2022 Provider: Diagnosis: Last Documented On 3 8:21AM By Merari Parson ; [facility], [facility] Cymbalta 20 MG Oral Capsule Delayed Release Particles 06/15/2022 Provider: Diagnosis: Last Documented On 3 8:21AM By Merari Parson ; [facility], [facility] Estradiol 0.1 MG/GM Vaginal Cream 06/15/2022 Provide r: Diagnosis: Last Documented On 3 9:04AM By Merari Parson ; [facility], [facility] Retin-A 0.1% External Cream 06/15/2022 Provider: Diagnosis: Last Documented On 3 9:03AM By Merari Parson ; [facility] Nystatin-Triamcinolone 249661-4.1 UNIT/GM-% External C ream 06/15/2022 Provider: Diagnosis: Last Documented On 3 9:02AM By Merari Parson ; [facility], [facility] Triamcinolone Acetonide 0.1% External Cream 06/15/2022 Provider: Diagnosis: Last Documented On 3 8:29AM By Merari Parson ; [facility] oxyCODONE HCl 10 MG Oral Tablet 06/15/2022 Provider: Diagnosis: Last Documented On 3 8:27AM By Merari Parson ; [facility] Losartan Potassium 50 MG Oral Tablet 06/15/2022 Prov ider: Diagnosis: Last Documented On 3 8:26AM By Merari Parson ; [facility] Fluticasone-Salmeterol 250-5 0 MCG/ACT Inhalation Aerosol Powder Breath Activated 06/15/2022 Provider: Diagnosis: Last Documented On 3 8:25AM By Merari Parson ; [facility] Diphenoxylate-Atropine 2.5-0.025 MG Oral Tablet 2022 Provider: Diagnosis: Last Documented On 3 8:22AM By Merari Parson ; [facility], [facility] Acyclovir 400 MG Oral Tablet 10/05/2020 Provider: Diagnosis: Last Documented On 1 3:19PM By Adele Trevino ; [facility] Past Medications on file oxyCODONE HCl 5 MG Oral Tablet 07/19/2022 - 07/29/2022 Provider: Jesus Zimmer MD Diagnosis: Take 1 tablet by mouth every 4-6 hrs for break through pain Last Documented On 3 11:00AM By Jesus Espinosa ; [facility], [facility] Meloxicam 15 MG Oral Tablet 07/03/2022 - 07/17/2022 Pr ovider: Jesus Espinosa MD Diagnosis: once a day Last Documented On 3 8:45AM By Barbara Correa ; [facility], [facility] Ondansetron HCl 4 MG Oral Tablet 06/30/2022 - 07/07/2022 Provider: Jesus Zimmer MD Diagnosis: 1 po q 6h prn nausea Last Documented On 3 1:35PM By Jesus Espinosa ; [facility] oxyCODONE HCl 5 MG Oral Tablet 06/30/2022 - 07/10/2022 Provider: Jesus Zimmer MD Diagnosis: Take 1 tablet by mouth every 4-6 hrs for break through pain Last Documented On 3 1:35PM By Jesus Espinosa ; [facility] Acetaminophen 500 MG Oral Tablet 06/30/2022 - 07/14/2022 Provider: Jesus Zimmer MD Diagnosis: Take 2 tablets by mouth every 8 hours Last Documented On 3 1:35PM By Jesus Espinosa ; [facility], [facility] Cefadroxil 500 MG Oral Capsule 06/30/2022 - 07/07/2022 Provider: Jesus Zimmer MD Diagnosis: Take 1 tablet by mouth every 12 hours for 7 days Last Documented On 3 1:35PM By Jesus Espinosa ; [facility], [facility] Aspirin EC 81 MG Oral Tablet Delayed Release 06/30/2022 - 08/11/2022 Provider: Jesus Espinosa MD Diagnosis: Take 1 tablet by mouth every 12 hours for 42 days post op Last Documented On 3 1:35PM By Jesus Espinosa ; [facility], [facility] Vitamin D3 50 MCG (1999 [place]) Oral Tablet 06/20/2022 - 07/20/2022 Provider: Diana ABDI Diagnosis: once a day Last Documented On 3 1:03PM By Diana Rosas ; [facility], [facility] cloNIDine HCl 0.1 MG Oral Tablet 10/05/2020 - 11/05/19 Provider: Diagnosis: Last Documented On 1 3:16PM By Adele AMBRIZ [facility], [facility] Atorvastatin Calcium 20 MG O ral Tablet 10/05/2020 - 11/04/2020 Provider: MADI CHAPIN MD Diagnosis: Last Documented On 1 3:18PM By Adele AMBRIZ [facility], [facility] Medications Administered Includes: Administered Medications from this encounter No Administered Medications Recorded Vital Signs Includes: Vital Signs from this encounter Vital Name 04/30/2023 02:23P Height (in) 62 Weight (lb) 165 Body Mass Index 30.2 Body Surface Area 1.8 Note: bdf Last Documented: On 04/30/2023 2:23PM ; [facility], [facility] Results Includes: Results discussed during [...] Last Documented On 4 2:05PM ; [facility] Not a current smoker. 01/30/2024 Last Documented On 4 2:05PM ; [facility] Tobacco non-user 02/17/2022 Last Documented On 4 2:05PM ; [facility] Caffeine use 10/05/2020 Last Documented On 4 2:05PM ; [facility] Exercising regularly 10/05/2020 Last Documented On 4 2:05PM ; [facility] No recent change in diet 10/05/2020 Last Documented On 4 2:05PM ; [facility], [facility] Not a current smoker. 10/05/2020 Last Documented On 4 2:05PM ; [facility], [facility] Not using alcohol 10/05/2020 Last Documented On 4 2:05PM ; [facility] Not using drugs 10/05/2020 Last Documented On 4 2:05PM ; [facility] Non-smoker 10/05/2020 Last Documented On 4 2:05PM ; [facility] Not a current smoker 05/29/2018 Last Documented On 4 2:05PM ; [facility] No tobacco use 05/29/2018 Last Documented On 4 2:05PM ; [facility] Smoking status : Former smoker 9 Last Documented On 4 2:05PM ; [facility] Procedures and Surgical History Includes: Procedures from this encounter Procedures Code Diagnosis Performing Provider Service L ocation Service Date use of tobacco assessment performed 1000F Last Documented On 4 2:05PM ; [facility] patient screened for future fall risk: documentation of any fall with injury in past year 1100F Last Documented On 4 2:05PM ; [facility] review of medications documented 1160F Last Documented On 4 2:05PM ; [facility] an X-ray was performed 04085 Last Documented On 4 2:05PM ; [facility] an MRI was performed 00355 Last Documented On 4 2:05PM ; [facility] Surgical History Last Updated Past Surgical History: 03/16/2023 Last Documented On 4 2:05PM ; [facility] Medical History Includes: Medical History addressed during this encounter Description Last Updated History of Anemia 03/16/2023 Last Documented On 4 2:05PM ; [facility] History of History of Blood Clots 2022 Last Documented On 4 2:05PM ; [facility] Arthritis 10/05/2020 Last Documented On 4 2:05PM ; [facility] History of Arthroscopy 10/05/2020 Last Documented On 4 2:05PM ; [facility] Recent immunization for flu 10/05/2020 Last Documented On 4 2:05PM ; [facility] Recent immunization for pneumococcal pne umonia 10/05/2020 Last Documented On 4 2:05PM ; [facility] Shoulder arthroplasty 10/05/2020 Last Documented On 4 2:05PM ; [facility] Total hip replacement 10/05/2020 Last Documented On 4 2:05PM ; [facility] Total knee arthroplasty 10/05/2020 Last Documented On 4 2:05PM ; [facility] arthroscopy ~total joint replacement ~hi gh cholesterol 05/29/2018 Last Documented On 4 2:05PM ; [facility] Arthritic joint problems 05/29/2018 Last Documented On 4 2:05PM ; [facility] History of depression 05/29/2018 Last Documented On 4 2:05PM ; [facility] History of hepatitis C 05/29/2018 Last Documented On 4 2:05PM ; [facility] Family History Includes: Family History addressed during this encounter Description Last Updated Family history of cancer 10/05/2020 Last Documented On 4 2:05PM ; [facility] Family history of osteoporosis 1 Last Documented On 4 2:05PM ; [facility] Family history of thromboembolic disease 05/29/2018 Last Documented On 4 2:05PM ; [facility] Review of Systems Includes: Review [...] Active Last Documented On 06/16/2024 12:48PM ; [facility], [facility] Note: joint pain- Major fluoroquinolones Allergy 09/04/2018 Ac tive Last Documented On 5 12:48PM ; [facility], [facility] Encounters Encounter Provider Location Date Check-In Time Check-Out Time Diagnosis Follow Up Bautista Luis MD [facility] B 4 2:02PM 2:30PM Overweight Insurance Includes: Active Insurance Policies Plan Name Member ID Group # Subscriber Relationship Effect sherman Dates 1 - Medicare Part B [facility] [id number] Farrah Atkinson Self 4 - Unknown 2 - [facility] [id number] Farrah Atkinson Self 05/03/2019 - Unknown Clinical Notes Includes: Clinical Notes from this encounter * Progress note Date Encounter Last Documented by 04/30/2023 Follow Up Last documented on 05/01/2023; 3:50 PM, Bautista Luis MD; [facility], [facility] Active Problems & Conditions - [...] directed 0 days, 0 refills - Nystatin-Triamcinolone 146220-5.1 UNIT/GM-% External Cream take as directed 0 [...] Care Team - Chandra Leahy MD - PYROMETALLURGICAL ENGINEER
--- OUTSIDE RECORDS SUMMARY | 2025-01-25 00:36 | XMS_ITS | Patient Health Record ---
Author Organization [facility] Address [address] [place] [address] Care Team Providers Care Carbonation Equipment Tender Name Role Phone Timothy Granda DO Primary Care Provider Tha Chaudhry Unavailable [phone] Jesus Rose Unavailable Unavailable Reason For Referral No Information Encounters Encounter Location Date Provider Diagnosis [facility] [address] [place] [address] 04/01/2024 Tha Krishnamurthy [facility] [address] [place] [address] 05/13/2024 Tha Krishnamurthy [facility] [address] [place] [address] 06/17/2024 Tha Krishnamurthy Plan Of Treatment No Information Insurance Providers Payer Name Payer Address Payer Phone Subscriber Number Group Number Insured Name Patient Relationship to Insured Coverage Start Date Coverage End Date Medicare CGS Administrators [address] [id number] Farrah Anna Self - patient is the insured
--- OUTSIDE RECORDS SUMMARY | 2025-01-25 00:36 | XMS_ITS | Encounter Summary ---
Author Organization [facility] Address [address] [place] [id number] Care Team Providers Care Nail Professional Name Role Phone GabrielTimothy armenta Primary Care Provider [phone] Reason for Visit * Reason Comments Med Refill Encounter Details Date Type Department Care Team (Late st Contact Info) Description 12/22/2021 Refill [facility] [address] [place] [address] Connor Nunez MD [address] [place] [address] Chronic arthritis associated with viral [...] documented as of this encounter Care Teams Nail Professional Relationship Specialty Start Date End Date Timothy Granda DO [address] [place] [address] [place]A CLEM [id number] PCP - General Internal Medicine 06/12/23 documented as of this encounter
--- OUTSIDE RECORDS SUMMARY | 2025-01-25 00:36 | XMS_ITS | Encounter Summary ---
Author Organization [facility] Address [address], [address] [place] [address] Care Team Providers Care Log Scaler Name Role Phone Unavailable Primary Care Provider Unavailabl e Reason for Visit * Reason Onset Date Comments Surgery Scheduling 10/10/2024 Encounter Details Date Type Department Care Team (Late st Contact Info) Description 10/10/[address] [facility] [address] [place], [place] [phone] Sharon Paulino MD [address] [place] [address] [address] [place] [address] Surgery Scheduling Social History Tobacco [...]
--- OUTSIDE RECORDS SUMMARY | 2025-01-25 00:37 | XMS_ITS ---
Care Plan - [facility], [facility] Created on: January 25, 2025 Demetrio Farrah J : 1950 Sex: Female Author Organization [facility] , [facility] Address [address] [place] [address] Phone Care Team Providers Care Portfolio Accountant Name Role Phone Tosin VARGAS, Chandra Flores Unavailable [phone] Chel VARGAS, Davidson Unavailable [phone] Timothy Granda Primary Care Provider Unavailabl e
--- OUTSIDE RECORDS SUMMARY | 2025-01-25 00:37 | XMS_ITS | Clinical Summary ---
Author Organization [facility] Address [address] [place] [address] Phone Care Team Providers Care Recycling Operator Name Role Phone Tosin VARGAS, Chandra Flores Unavailable [phone] Chel VARGAS, Davidson Unavailable [phone] Timothy Granda Primary Care Provider Unavailabl e Reason for Visit and Chief Complaint INJECTION Problems Includes: Problems addressed during this encounter and other active Problems All Visits Onset Date Resolved Date Provider Condition S tatus Joint Pain Shoulder Left 03/16/2023 Funmi Robles PA-C Active Last Documented On 3 10:30AM ; [facility], [facility] Joint Pain Left Knee 03/31/2022 Jesus giles MD Active Last Documented On 2 10:01AM ; [facility], [facility] Joint Pain Right Knee 02/12/2019 Timothy dye MD Active Last Documented On 9 10:35AM ; [facility], [facility] Joint Pain Hip Right 02/12/2019 Timothy Foster MD Active Last Documented On 9 10:35AM ; [facility], [facility] Joint Pain Shoulder 05/29/2018 Bautista christie MD Active Last Documented On 9 10:31AM ; [facility], [facility] Plan of Treatment No Plan of Treatment Recorded Assessments Includes: Assessments from this encounter No Assessments Recorded Medical Equipment - Implanted Devices Includes: Current Devices No Medical Equipment Recorded Medications Includes: Medications discussed during this encounter and other current Medications Current Medications (continue as prescribed) Acyclovir 400 MG Oral Tablet 01/27/2024 Provider: Diagnosis: Last Documented On 4 2:44PM By Karen Ornelas ; [facility] oxyCODONE HCl 10 MG Oral Tablet 01/22/2024 Provider: Diagnosis: Last Documented On 4 2:44PM By Karen Ornelas ; [facility] Dicyclomine HCl 10 MG Oral Capsule 01/22/2024 Provid er: CASTILLO ESPINO II, MD Diagnosis: Last Documented On 4 2:44PM By Karen Ornelas ; [facility] tiZANidine HCl 4 MG Oral Tablet 01/18/2024 Provider: Diagnosis: Last Documented On 4 2:44PM By Karen Ornelas ; [facility] Sulfamethoxazole-Trimethoprim 400-80 MG Oral Tablet Provider: Diagnosis: Last Documented On 4 2:44PM By Karen Ornelas ; [facility] DULoxetine HCl 60 MG Oral Capsule Delayed Releas e Particles 01/18/2024 Provider: Diagnosis: Last Documented On 4 2:44PM By Karen Ornelas ; [facility] HYDROmorphone HCl 4 MG Oral Tablet 01/08/2024 Provid er: Diagnosis: Last Documented On 4 2:44PM By Karen Ornelas ; [facility] Fluticasone-Salmeterol 100-5 0 MCG/ACT Inhalation Aerosol Powder Breath Activated 01/08/2024 Provider: Diagnosis: Last Documented On 4 2:44PM By Karen Ornelas ; [facility] Atorvastatin Calcium 40 MG Oral Tablet 01/08/2024 Pr ovider: Diagnosis: Last Documented On 4 2:44PM By Karen Ornelas ; [facility] Levothyroxine Sodium 25 MCG Oral Tablet 12/31/2023 P rovider: Diagnosis: Last Documented On 4 2:44PM By Karen Ornelas ; [facility] Eliquis 5 MG Oral Tablet 12/31/2023 Provider: Diagnosis: Last Documented On 4 2:44PM By Karen Ornelas ; [facility] Atorvastatin Calcium 20 MG Oral Tablet 12/31/2023 Pr ovider: Diagnosis: Last Documented On 4 2:44PM By Karen Ornelas ; [facility] amLODIPine Besylate 5 MG Oral Tablet 12/10/2023 Prov ider: Diagnosis: Last Documented On 4 2:44PM By Karen Ornelas ; [facility] Albuterol Sulfate 108 (90 Ba se) MCG/ACT Inhalation Aerosol Powder Breath Activated 06/15/2022 Provider: Diagnosis: Last Documented On 3 8:21AM By Merari Parson ; [facility] Cymbalta 20 MG Oral Capsule Delayed Release Particles 06/15/2022 Provider: Diagnosis: Last Documented On 3 8:21AM By Merari Parson ; [facility] Estradiol 0.1 MG/GM Vaginal Cream 06/15/2022 Provide r: Diagnosis: Last Documented On 3 9:04AM By Merari Parson ; [facility] Retin-A 0.1% External Cream 06/15/2022 Provider: Diagnosis: Last Documented On 3 9:03AM By Merari Parson ; [facility] Nystatin-Triamcinolone 784159-0.1 UNIT/GM-% External C ream 06/15/2022 Provider: Diagnosis: Last Documented On 3 9:02AM By Merari Parson ; [facility] Triamcinolone Acetonide 0.1% External Cream 06/15/2022 Provider: Diagnosis: Last Documented On 3 8:29AM By Merari Parson ; [facility] oxyCODONE HCl 10 MG Oral Tablet 06/15/2022 Provider: Diagnosis: Last Documented On 3 8:27AM By Merari Parson ; [facility] Losartan Potassium 50 MG Oral Tablet 06/15/2022 Prov ider: Diagnosis: Last Documented On 3 8:26AM By Merari Parson ; [facility] Fluticasone-Salmeterol 250-5 0 MCG/ACT Inhalation Aerosol Powder Breath Activated 06/15/2022 Provider: Diagnosis: Last Documented On 3 8:25AM By Merari Parson ; [facility] Diphenoxylate-Atropine 2.5-0.025 MG Oral Tablet 2022 Provider: Diagnosis: Last Documented On 3 8:22AM By Merari Parson ; [facility] Acyclovir 400 MG Oral Tablet 10/05/2020 Provider: Diagnosis: Last Documented On 1 3:19PM By Adele Sawyer [facility] Medications Administered Includes: Administered Medications from [...] Active Last Documented On 06/16/2024 12:48PM ; [facility] Note: joint pain- Major fluoroquinolones Allergy 09/04/2018 Ac tive Last Documented On 5 12:48PM ; [facility] Encounters Encounter Provider Location Date Check-In Time Check-Out Time Diagnosis INJECTION Fab Li PA-C [facility] 04/12/19 24 2:28PM 2:56PM Insurance Includes: Active Insurance Policies Plan Name Member ID Group # Subscriber Relationship Effect sherman Dates 1 - Medicare Part B [facility] [id number] Farrah Atkinson Self 4 - Unknown 2 - [facility] [id number] Farrah Atkinson Self 05/03/2019 - Unknown Clinical Notes Includes: Clinical Notes from this encounter * Progress note Date Encounter Last Documented by 04/12/2023 INJECTION Last documented on 04/12/2023; 3:29 PM, Fab Li PA-C; [facility] Physical Findings HPI: Left shoulder pain, [...]
--- OUTSIDE RECORDS SUMMARY | 2025-01-25 00:37 | XMS_ITS | Clinical Summary ---
Author Organization [facility] Address [address] [place] [address] Care Team Providers Care Vocational Technical Education Teacher Name Role Phone KaleeTimothy Primary Care Provider [phone] Allergies Active Allergy Reactions Criticality Noted Date [...] Patient may need Pain Management referral. Discontinue [place] and use oxycodone 10mg q6h prn. Discussed with patient will not increase this medicine exterminator prescription opiate use 03/13/2022 Chronic arthritis [...] this topic Medical Devices Implanted Type Area Forming Process Worker Device Identifier Shelf Expiration Date Model / Serial / Lot Cmt Bone Simplex/P Full Dose 10/Pk - [id number] Implanted:Qty : 1 on 07/18/2018 by Bautista Luis MD at [facility] Implant Right: Shoulder TRACY RUBEN 09/29/2020 [id number] / / [id number] Stem Hum Univers [place] 6x60mm - [id number] Implanted:Qty : 1 on 07/18/2018 by Bautista Luis MD at [facility] Implant Right: Shoulder ARTHREX 08/30/2022 [id number] / / [id number] Alberto Vaultlock Sm - [id number] Implanted:Qty : 1 on 07/18/2018 by Bautista Luis MD at [facility] Implant Right: Shoulder ARTHREX 12/30/2022 [id number] / / [id number] Hd Hum Univers2 Cocr 11q50pn - [id number] Implanted:Qty : 1 on 07/18/2018 by Bautista Luis MD at [facility] Implant Right: Shoulder ARTHREX 03/01/2022 [id number] / / [id number] Sut Tw 2/0 38in Wht/Blk - [id number] Implanted:Qty : 3 on 07/18/2018 by Bautista Luis MD at [facility] Implant Right: Shoulder ARTHREX [id number] / / Totl Arth Shldr S3 - [id number] Implanted:Qty : 1 on 07/18/2018 by Bautista Luis MD at [facility] Implant Right: Shoulder ARTHREX CAPTOTLSHLD [id number] / / Procedures Procedure Name Priority Date/Time [...] 5:07 AM EST Performed at: 01 - [facility] [address] [place], [place] [id number] Respiratory Care Specialist: Carlos Rod PhD, Phone: [phone] Connor Nunez MD LAB BLOOD ORDERABLES Fin al Result Performing Organization Address [facility] Co de Phone Number [facility] [address] [place] [address], [facility] [address] [place] [address], * Hepatitis C Genotype (12/15/2021 11:55 AM EDT) [facility] Signature Hepatitis C Genotype Comment [facility] Comment: Specimen has insufficient hepatitis C virus RNA to obtain genotyping results. This genotyping assay should only be used for known HCV positive patients with HCV RNA levels above 1000 IU/mL. Please note Comment [facility] Comment: This test was developed and its performance characteristics determined by [facility]. It has not been cleared or approved by the U.S. Food and Drug Administration. The FDA has determined that such clearance or approval is not necessary. This test is used for clinical purposes. It should not be regarded as investigational or for research. Blood 12/15/2021 11:5 5 AM EDT 12/16/2021 Narrative [facility] - 12/21/2021 8:08 PM EDT Performed at: [address] [place] [id number] Respiratory Care Specialist: Genna Davenport MD, Phone: [phone] Patient Fasting: Y Connor Nunez MD LAB BLOOD ORDERABLES Fin al Result Performing Organization Address [facility] Co de Phone Number [facility] [address] [place] [address], [facility] [address] [place], [place] [id number], * SCANNED - MAMMO (08/23/2021) Anatomical Region Laterality Modality Other Connor Nunez MD CHART REVIEW TABS Fin al Result * Hemoglobin A1c (07/10/2018 3:05 PM EDT) Hemoglobin A1C 5.10 4.80 - 5.60 % 07/10/2018 3:58 PM EDT [facility] Blood Venipuncture / Unknown 07/10/2018 3:05 PM EDT 07/10/2018 3:36 PM EDT Narrative [facility] - 07/10/2018 3:58 PM EDT Hemoglobin A1C Ranges: Increased Risk for Diabetes 5.7% to 6.4% Diabetes >= 6.5% Diabetic Goal < 7.0% Bautista Luis MD LAB BLOOD ORDERABLES Fin al Result [facility]
[address] [place] [address], from Last 3 Months or Most Recently Relevant to Health Maintenance Insurance MEDICARE A & B Member Subscriber Plan / Payer (Ef fective 2013-Present) Name:Farrah Atkinson Member ID:[id number] Relation to Subscriber:Self Name:Farrah Atkinson Subscriber ID:[id number] Payer ID:[id number] Group ID:Not on file Type:Not on file Address: [facility] [id number] [address] [place] [address] Advance Directives * CPR (Attempt to Resuscitate) (Latest Code Status on File) Date Activated Date Inactivated Comments 07/18/2018 6:35 PM 07/19/2018 6:14 PM Question Answer Comments Code Status (Patient has no pulse and is not breathing): CPR (Attempt to Resuscitate) Medical Interventions (Patie nt has pulse or is breathing): Full Level Of Support Discussed With: Patient Care Teams Vocational Technical Education Teacher Relationship Specialty Start Date End Date Timothy Granda DO [address] [place] [address] PCP - General Internal Medicine 06/12/23
--- OUTSIDE RECORDS SUMMARY | 2025-01-25 00:37 | XMS_ITS | Clinical Summary ---
Author Organization [facility] Address [address] [place] [address] Phone Care Team Providers Care Surgical Territory Manager Name Role Phone Tosin VARGAS, Chandra Flores Unavailable [phone] Davidson Milligan MD Unavailable [phone] Timothy Granda Primary Care Provider Unavailabl e Reason for Visit and Chief Complaint The Chief Complaint is: Left shoulder pain Problems Includes: Problems addressed during this encounter and other active Problems Current Visit Onset Date Resolved Date Provider Conditio n Status Joint Pain Shoulder Left 03/16/2023 Funmi Robles PA-C Active Last Documented On 3 10:30AM ; [facility], [facility] Past Visits Onset Date Resolved Date Provider Condition Status Joint Pain Left Knee 03/31/2022 Jesus Espinosa MD Active Last Documented On 2 10:01AM ; [facility] Joint Pain Right Knee 02/12/2019 Timothy dye MD Active Last Documented On 9 10:35AM ; [facility] Joint Pain Hip Right 02/12/2019 Timothy Foster MD Active Last Documented On 9 10:35AM ; [facility] Joint Pain Shoulder 05/29/2018 Bautista christie MD Active Last Documented On 9 10:31AM ; [facility] Plan of Treatment Fall Risk Assessment: This [...] - Last Documented On 03/16/2023 11:26AM ; [facility], [facility] she had progressive pain over the last [...] - Last Documented On 03/16/2023 11:26AM ; [facility], [facility] Pending Tests Order Diagnosis Results Due Ordering P rovider Radiology - CT Scan Shoulder Overweight 03/30/23 Bari Robles PA-C Last Documented On 3 11:26AM ; [facility] Instructions to patient Lose weight Last Documented On 3 10:32AM ; [facility], [facility] Assessments Includes: Assessments from this encounter Findings - Overweight - Last Documented On 03/16/2023 11:26AM ; [facility], [facility] left total shoulder - Last Documented On 03/16/2023 11:26AM ; [facility] Instructions Includes: Instructions from this encounter Instructions to patient Lose weight Last Documented On 3 10:32AM ; [facility], [facility] Medical Equipment - Implanted Devices Includes: Current Devices No Medical Equipment Recorded Medications Includes: Medications discussed during this encounter and other current Medications Current Medications (continue as prescribed) Acyclovir 400 MG Oral Tablet 01/27/2024 Provider: Diagnosis: Last Documented On 4 2:44PM By Karen [facility], [facility] oxyCODONE HCl 10 MG Oral Tablet 01/22/2024 Provider: Diagnosis: Last Documented On 4 2:44PM By Karen AM[facility]RI[facility] Dicyclomine HCl 10 MG Oral Capsule 01/22/2024 Provid er: CASTILLO ESPINO II, MD Diagnosis: Last Documented On 4 2:44PM By Karen Ornelas ; [facility] tiZANidine HCl 4 MG Oral Tablet 01/18/2024 Provider: Diagnosis: Last Documented On 4 2:44PM By Karen Ornelas ; [facility] Sulfamethoxazole-Trimethoprim 400-80 MG Oral Tablet Provider: Diagnosis: Last Documented On 4 2:44PM By Karen Ornelas ; [facility] DULoxetine HCl 60 MG Oral Capsule Delayed Releas e Particles 01/18/2024 Provider: Diagnosis: Last Documented On 4 2:44PM By Karen Ornelas ; [facility] HYDROmorphone HCl 4 MG Oral Tablet 01/08/2024 Provid er: Diagnosis: Last Documented On 4 2:44PM By Karen Ornelas ; [facility] Fluticasone-Salmeterol 100-5 0 MCG/ACT Inhalation Aerosol Powder Breath Activated 01/08/2024 Provider: Diagnosis: Last Documented On 4 2:44PM By Karen Ornelas ; [facility], [facility] Atorvastatin Calcium 40 MG Oral Tablet 01/08/2024 Pr ovider: Diagnosis: Last Documented On 4 2:44PM By Karen Ornelas ; [facility] Levothyroxine Sodium 25 MCG Oral Tablet 12/31/2023 P dionicioder: Diagnosis: Last Documented On 4 2:44PM By Karen Ornelas ; [facility] Eliquis 5 MG Oral Tablet 12/31/2023 Provider: Diagnosis: Last Documented On 4 2:44PM By Karen Ornelas ; [facility] Atorvastatin Calcium 20 MG Oral Tablet 12/31/2023 Pr ovider: Diagnosis: Last Documented On 4 2:44PM By Karen Ornelas ; [facility] amLODIPine Besylate 5 MG Oral Tablet 12/10/2023 Prov ider: Diagnosis: Last Documented On 4 2:44PM By Karen Ornelas ; [facility], [facility] Albuterol Sulfate 108 (90 Ba se) MCG/ACT Inhalation Aerosol Powder Breath Activated 06/15/2022 Provider: Diagnosis: Last Documented On 3 8:21AM By Merari Parson ; [facility], [facility] Cymbalta 20 MG Oral Capsule Delayed Release Particles 06/15/2022 Provider: Diagnosis: Last Documented On 3 8:21AM By Merari Parson ; [facility], [facility] Estradiol 0.1 MG/GM Vaginal Cream 06/15/2022 Provide r: Diagnosis: Last Documented On 3 9:04AM By Merari Parson ; [facility], [facility] Retin-A 0.1% External Cream 06/15/2022 Provider: Diagnosis: Last Documented On 3 9:03AM By Merari Parson ; [facility], [facility] Nystatin-Triamcinolone 825755-8.1 UNIT/GM-% External C ream 06/15/2022 Provider: Diagnosis: Last Documented On 3 9:02AM By Merari Parson ; [facility], [facility] Triamcinolone Acetonide 0.1% External Cream 06/15/2022 Provider: Diagnosis: Last Documented On 3 8:29AM By Merari Parson ; [facility], [facility] oxyCODONE HCl 10 MG Oral Tablet 06/15/2022 Provider: Diagnosis: Last Documented On 3 8:27AM By Merari Parson ; [facility], [facility] Losartan Potassium 50 MG Oral Tablet 06/15/2022 Prov ider: Diagnosis: Last Documented On 3 8:26AM By Merari Parson ; [facility], [facility] Fluticasone-Salmeterol 250-5 0 MCG/ACT Inhalation Aerosol Powder Breath Activated 06/15/2022 Provider: Diagnosis: Last Documented On 3 8:25AM By Merari Parson ; [facility], [facility] Diphenoxylate-Atropine 2.5-0.025 MG Oral Tablet 2022 Provider: Diagnosis: Last Documented On 3 8:22AM By Merari Parson ; [facility], [facility] Acyclovir 400 MG Oral Tablet 10/05/2020 Provider: Diagnosis: Last Documented On 1 3:19PM By Adele Trevino ; [facility] Past Medications on file oxyCODONE HCl 5 MG Oral Tablet 07/19/2022 - 07/29/2022 Provider: Jesus Zimmer MD Diagnosis: Take 1 tablet by mouth every 4-6 hrs for break through pain Last Documented On 3 11:00AM By Jesus Espinosa ; [facility], [facility] Meloxicam 15 MG Oral Tablet 07/03/2022 - 07/17/2022 Pr ovider: Jesus Espinosa MD Diagnosis: once a day Last Documented On 3 8:45AM By Barbara Correa ; [facility], [facility] Ondansetron HCl 4 MG Oral Tablet 06/30/2022 - 07/07/2022 Provider: Jesus Zimmer MD Diagnosis: 1 po q 6h prn nausea Last Documented On 3 1:35PM By Jesus Espinosa ; [facility], [facility] oxyCODONE HCl 5 MG Oral Tablet 06/30/2022 - 07/10/2022 Provider: Jesus Zimmer MD Diagnosis: Take 1 tablet by mouth every 4-6 hrs for break through pain Last Documented On 3 1:35PM By Jesus Espinosa ; [facility], [facility] Acetaminophen 500 MG Oral Tablet 06/30/2022 - 07/14/2022 Provider: Jesus Zimmer MD Diagnosis: Take 2 tablets by mouth every 8 hours Last Documented On 3 1:35PM By Jesus Espinosa ; [facility], [facility] Cefadroxil 500 MG Oral Capsule 06/30/2022 - 07/07/2022 Provider: Jesus Zimmer MD Diagnosis: Take 1 tablet by mouth every 12 hours for 7 days Last Documented On 3 1:35PM By Jesus Espinosa ; [facility], [facility] Aspirin EC 81 MG Oral Tablet Delayed Release 06/30/2022 - 08/11/2022 Provider: Jesus Espinosa MD Diagnosis: Take 1 tablet by mouth every 12 hours for 42 days post op Last Documented On 3 1:35PM By Jesus Espinosa ; [facility] Vitamin D3 50 MCG (1999 [place]) Oral Tablet 06/20/2022 - 07/20/2022 Provider: Diana ABDI Diagnosis: once a day Last Documented On 3 1:03PM By Diana Rosas ; [facility] cloNIDine HCl 0.1 MG Oral Tablet 10/05/2020 - 11/05/19 Provider: Diagnosis: Last Documented On 1 3:16PM By Adele Trevino ; [facility] Atorvastatin Calcium 20 MG O ral Tablet 10/05/2020 - 11/04/2020 Provider: MADI CHAPIN MD Diagnosis: Last Documented On 1 3:18PM By Adele Trevino ; [facility] Medications Administered Includes: Administered Medications from this encounter No Administered Medications Recorded Vital Signs Includes: Vital Signs from this encounter Vital Name 03/16/2023 10:32A Height (in) 61 Weight (lb) 145 Body Mass Index 27.4 Body Surface Area 1.6 Note: hdv Last Documented: On 03/16/2023 10:32A M ; [facility] Results Includes: Results discussed during this [...] 03/16/2023 Last Documented On 3 11:26AM ; [facility] Not a current smoker. 03/16/2023 Last Documented On 3 11:26AM ; [facility] Tobacco non-user 02/17/2022 Last Documented On 3 10:32AM ; [facility] Caffeine use 10/05/2020 Last Documented On 3 10:32AM ; [facility] Exercising regularly 10/05/2020 Last Documented On 3 10:32AM ; [facility] No recent change in diet 10/05/2020 Last Documented On 3 10:32AM ; [facility] Not a current smoker. 10/05/2020 Last Documented On 3 10:32AM ; [facility] Not using alcohol 10/05/2020 Last Documented On 3 10:32AM ; [facility] Not using drugs 10/05/2020 Last Documented On 3 10:32AM ; [facility] Non-smoker 10/05/2020 Last Documented On 3 10:32AM ; [facility] Not a current smoker 05/29/2018 Last Documented On 3 10:32AM ; [facility] No tobacco use 05/29/2018 Last Documented On 3 10:32AM ; [facility] Smoking status : Former smoker 9 Last Documented On 3 10:32AM ; [facility] Procedures and Surgical History Includes: Procedures from this encounter Procedures Code Diagnosis Performing Provider Service L ocation Service Date use of tobacco assessment performed 1000F Last Documented On 3 10:32AM ; [facility] patient screened for future fall risk: documentation of any fall with injury in past year 1100F Last Documented On 3 10:32AM ; [facility] review of medications documented 1160F Last Documented On 3 10:32AM ; [facility] an X-ray was performed 65291 Last Documented On 3 10:33AM ; [facility] an MRI was performed [id number] Last Documented On 3 10:33AM ; [facility] Surgical History Last Updated Past Surgical History: 03/16/2023 Last Documented On 3 11:26AM ; [facility] Medical History Includes: Medical History addressed during this encounter Description Last Updated History of Anemia 03/16/2023 Last Documented On 3 11:26AM ; [facility] History of arthritis 03/16/2023 Last Documented On 3 11:26AM ; [facility] History of History of Blood Clots 2022 Last Documented On 3 11:26AM ; [facility] Anemia 10/05/2020 Last Documented On 3 10:32AM ; [facility] Arthritis 10/05/2020 Last Documented On 3 10:32AM ; [facility] History of Arthroscopy 10/05/2020 Last Documented On 3 10:32AM ; [facility] Recent immunization for flu 10/05/2020 Last Documented On 3 10:32AM ; [facility] Recent immunization for pneumococcal pne umonia 10/05/2020 Last Documented On 3 10:32AM ; [facility] Shoulder arthroplasty 10/05/2020 Last Documented On 3 10:32AM ; [facility] Total hip replacement 10/05/2020 Last Documented On 3 10:32AM ; [facility] Total knee arthroplasty 10/05/2020 Last Documented On 3 10:32AM ; [facility] arthroscopy ~total joint replacement ~hi gh cholesterol 05/29/2018 Last Documented On 3 10:32AM ; [facility] Arthritic joint problems 05/29/2018 Last Documented On 3 10:32AM ; [facility] History of depression 05/29/2018 Last Documented On 3 10:32AM ; [facility] History of hepatitis C 05/29/2018 Last Documented On 3 10:32AM ; [facility] Family History Includes: Family History addressed during this encounter Description Last Updated Family history of cancer 10/05/2020 Last Documented On 3 10:32AM ; [facility] Family history of osteoporosis 1 Last Documented On 3 10:32AM ; [facility] Family history of thromboembolic disease 05/29/2018 Last Documented On 3 10:32AM ; [facility] Review of Systems Includes: Review of [...] Active Last Documented On 06/16/2024 12:48PM ; [facility] Note: joint pain- Major fluoroquinolones Allergy 09/04/2018 Ac tive Last Documented On 5 12:48PM ; [facility] Encounters Encounter Provider Location Date Check-In Time Check-Out Time Diagnosis Physician Specified Funmi Robles PA-C [facility] B 03/16/20 23 10:22AM 11:03AM Overweight Insurance Includes: Active Insurance Policies Plan Name Member ID Group # Subscriber Relationship Effect sherman Dates 1 - Medicare Part B [facility] [id number] Farrah Atkinson Self 4 - Unknown 2 - [facility] [id number] Farrah Atkinson Self 05/03/2019 - Unknown Clinical Notes Includes: Clinical Notes from this encounter * Progress note Date Encounter Last Documented by 03/16/2023 Physician Specified Last gilma farrell on 03/16/2023; 11:26 AM, Funmi Robles PA-C; [facility], [facility] Active Problems & Conditions - Joint [...] directed 0 days, 0 refills - Nystatin-Triamcinolone 212036-0.1 UNIT/GM-% External Cream take as directed 0 [...] Care Team - Chandra Leahy MD - [employer]
--- OUTSIDE RECORDS SUMMARY | 2025-01-25 00:37 | XMS_ITS | Encounter Summary ---
Author Organization [facility] Address [address], [address] [place] [address] Care Team Providers Care Practice Representative Name Role Phone Unavailable Primary Care Provider Unavailabl e Reason for Visit * Reason Onset Date Comments Surgery Scheduling 12/08/2024 Encounter Details Date Type Department Care Team (Late st Contact Info) Description 12/08/2024 Telephone [facility], [place] [address] Sharon Paulino MD [address] [place] [address] [address] [place] [address] Surgery Scheduling Social History Tobacco [...]
--- OUTSIDE RECORDS SUMMARY | 2025-01-25 00:38 | XMS_ITS ---
Author Organization [facility] Address [address] [place] [address] Phone Care Team Providers Care Pinion Polisher Name Role Phone Tosin VARGAS, Chandra Flores Unavailable [phone] Chel VARGAS, Davidson Unavailable [phone] Timothy Granda Primary Care Provider Unavailabl e [...] Active Last Documented On 3 10:30AM ; [facility] Joint Pain Left Knee 03/31/2022 Jesus giles MD Active Last Documented On 2 10:01AM ; [facility] Joint Pain Right Knee 02/12/2019 Timothy yde MD Active Last Documented On 9 10:35AM ; [facility] Joint Pain Hip Right 02/12/2019 Timothy Foster MD Active Last Documented On 9 10:35AM ; [facility] Joint Pain Shoulder 05/29/2018 Bautista christie MD Active Last Documented On 9 10:31AM ; [facility] Plan of Treatment Findings Encounter Date Patient screened for future fall risk: documentation of any fall with injury in past year Follow Up with Jesus Espinosa MD 06/16/2024 Last Documented On 5 1:41PM ; [facility] Patient screened for future fall risk: documentation of any fall with injury in past year Follow Up with Chandra Grewal PA-C 01/30/2024 Last Documented On 4 4:58PM ; [facility] Pending Tests Order Diagnosis Results Due Ordering P rovider Radiology - MRI MRI R Knee Derang of medial meniscus due to old tear/inj, right knee 05/27/19 Timothy Foster MD Last Documented On 0 12:04PM ; [facility] Radiology - CT Scan Shoulder Overweight 03/30/23 Bari Robles PA-C Last Documented On 3 11:26AM ; [facility] Referrals To Diagnosis Consult with Orthopedic Overweig ht Note: REFFERAL TO SHARON Orozco @ [facility] ) Last Documented On 4 4:58PM ; [facility] Consult with Orthopedic Overweig ht Note: Dr Sharon [facility] // cc Last Documented On 4 11:37AM ; [facility] Instructions to patient Lose weight Last Documented On 5 12:49PM ; [facility] Lose weight Last Documented On 5 12:50PM ; [facility] Lose weight Last Documented On 4 2:44PM ; [facility] Lose weight Last Documented On 4 2:05PM ; [facility] Lose weight Last Documented On 3 10:32AM ; [facility] Lose weight Last Documented On 3 8:11AM ; [facility] Lose weight Last Documented On 2 10:02AM ; [facility] Lose weight Last Documented On 2 8:00AM ; [facility] Instructions for patient see pcp for bp Last Documented On 0 1:11PM ; [facility] Instructions for patient see pcp [...] Last Documented On 4 4:58PM ; [facility] Overweight Follow Up with Bautista [...] Documented On 9 1:46PM ; [facility] Instructions for patient to see pcp for bp Last Documented On 9 2:20PM ; [facility] Instructions for patient see pcp for bp Last Documented On 9 2:29PM ; [facility] Instructions for patient see pcp for bp Last Documented On 9 1:12PM ; [facility] Medical Equipment - Implanted Devices Includes: Current and historical Devices No Medical Equipment Recorded Medications Includes: Current and historical Medications Current Medications (continue as prescribed) Acyclovir 400 MG Oral Tablet 01/27/2024 Provider: Diagnosis: Last Documented On 4 2:44PM By Karen Ornelas ; [facility] oxyCODONE HCl 10 MG Oral Tablet 01/22/2024 Provider: Diagnosis: Last Documented On 4 2:44PM By Karen Ornelas ; [facility] Dicyclomine HCl 10 MG Oral Capsule 01/22/2024 Provid er: CASTILLO ESPINO II, MD Diagnosis: Last Documented On 4 2:44PM By Karen Ornelas ; [facility] tiZANidine HCl 4 MG Oral Tablet 01/18/2024 Provider: Diagnosis: Last Documented On 4 2:44PM By Karen Ornelas ; [facility] Sulfamethoxazole-Trimethoprim 400-80 MG Oral Tablet Provider: Diagnosis: Last Documented On 4 2:44PM By Karen Ornelas ; [facility] DULoxetine HCl 60 MG Oral Capsule Delayed Releas e Particles 01/18/2024 Provider: Diagnosis: Last Documented On 4 2:44PM By Karen Ornelas ; [facility] HYDROmorphone HCl 4 MG Oral Tablet 01/08/2024 Provid er: Diagnosis: Last Documented On 4 2:44PM By Karen Ornelas ; [facility] Fluticasone-Salmeterol 100-5 0 MCG/ACT Inhalation Aerosol Powder Breath Activated 01/08/2024 Provider: Diagnosis: Last Documented On 4 2:44PM By Karen Ornelas ; [facility] Atorvastatin Calcium 40 MG Oral Tablet 01/08/2024 Pr ovider: Diagnosis: Last Documented On 4 2:44PM By Karen Ornelas ; [facility] Levothyroxine Sodium 25 MCG Oral Tablet 12/31/2023 P rovider: Diagnosis: Last Documented On 4 2:44PM By Karen Ornelas ; [facility] Eliquis 5 MG Oral Tablet 12/31/2023 Provider: Diagnosis: Last Documented On 4 2:44PM By Karen Ornelas ; [facility] Atorvastatin Calcium 20 MG Oral Tablet 12/31/2023 Pr ovider: Diagnosis: Last Documented On 4 2:44PM By Karen Ornelas ; [facility] amLODIPine Besylate 5 MG Oral Tablet 12/10/2023 Prov ider: Diagnosis: Last Documented On 4 2:44PM By Karen Ornelas ; [facility] Albuterol Sulfate 108 (90 Ba se) MCG/ACT Inhalation Aerosol Powder Breath Activated 06/15/2022 Provider: Diagnosis: Last Documented On 3 8:21AM By Merari Parson ; [facility] Cymbalta 20 MG Oral Capsule Delayed Release Particles 06/15/2022 Provider: Diagnosis: Last Documented On 3 8:21AM By Merari Parson ; [facility] Estradiol 0.1 MG/GM Vaginal Cream 06/15/2022 Provide r: Diagnosis: Last Documented On 3 9:04AM By Merari Parson ; [facility] Retin-A 0.1% External Cream 06/15/2022 Provider: Diagnosis: Last Documented On 3 9:03AM By Merari Parson ; [facility] Nystatin-Triamcinolone 731106-5.1 UNIT/GM-% External C ream 06/15/2022 Provider: Diagnosis: Last Documented On 3 9:02AM By Merari Parson ; [facility] Triamcinolone Acetonide 0.1% External Cream 06/15/2022 Provider: Diagnosis: Last Documented On 3 8:29AM By Merari Parson ; [facility] oxyCODONE HCl 10 MG Oral Tablet 06/15/2022 Provider: Diagnosis: Last Documented On 3 8:27AM By Merari Parson ; [facility] Losartan Potassium 50 MG Oral Tablet 06/15/2022 Prov ider: Diagnosis: Last Documented On 3 8:26AM By Merari Parson ; [facility] Fluticasone-Salmeterol 250-5 0 MCG/ACT Inhalation Aerosol Powder Breath Activated 06/15/2022 Provider: Diagnosis: Last Documented On 3 8:25AM By Merari Parson ; [facility] Diphenoxylate-Atropine 2.5-0.025 MG Oral Tablet 2022 Provider: Diagnosis: Last Documented On 3 8:22AM By Merari Parson ; [facility] Acyclovir 400 MG Oral Tablet 10/05/2020 Provider: Diagnosis: Last Documented On 1 3:19PM By Adele Trevino ; [facility] Past Medications on file Acyclovir 400 MG Oral Tablet 03/12/2023 - 01/30/2024 Richardson greenbergder: Chandra Leahy MD Diagnosis: Last Documented On 4 2:43PM By Karen Ornelas ; [facility] Eliquis 5 MG Oral Tablet 03/12/2023 - 01/30/2024 Provi kiera: Chandra Leahy MD Diagnosis: Last Documented On 4 2:43PM By Karen Ornelas ; [facility] Diphenoxylate-Atropine 2.5-0.025 MG Oral Tablet 03/09/2023 - 01/30/2024 Provider: Diagnosis: Last Documented On 4 2:43PM By Karen Ornelas ; [facility] OxyCONTIN 20 MG Oral Tablet ER 12 Hour Abuse-Deterrent 03/09/2023 - 01/30/2024 Provider: Diagnosis: Last Documented On 4 2:43PM By Karen Ornelas ; [facility] Sulfamethoxazole-Trimethopri m 400-80 MG Oral Tablet 03/09/2023 - 01/30/2024 Provider: Diagnosis: Last Documented On 4 2:43PM By Karen Ornelas ; [facility] Potassium Chloride Amy ER 2 0 MEQ Oral Tablet Extended Release 03/01/2023 - 01/30/2024 Provider: MADI CHAPIN MD Diagnosis: Last Documented On 4 2:43PM By Karen Ornelas ; [facility] Levothyroxine Sodium 25 MCG Oral Tablet 03/01/2023 - 01/30/2024 Provider: Chandra Leahy MD Diagnosis: Last Documented On 4 2:43PM By Karen Ornelas ; [facility] amLODIPine Besylate 5 MG Oral Tablet 02/28/2023 - 01/02 Provider: Diagnosis: Last Documented On 4 2:43PM By Karen Ornelas ; [facility] Cephalexin 500 MG Oral Capsule 02/26/2023 - 01/30/2024 Provider: Diagnosis: Last Documented On 4 2:43PM By Karen Ornelas ; [facility] oxyCODONE HCl 10 MG Oral Tablet 02/23/2023 - Provider: Chandra Leahy MD Diagnosis: Last Documented On 4 2:43PM By Karen Ornelas ; [facility] oxyCODONE HCl 5 MG Oral Tablet 07/19/2022 - 07/29/2022 Provider: Jesus Zimmer MD Diagnosis: Take 1 tablet by mouth every 4-6 hrs for break through pain Last Documented On 3 11:00AM By Jesus Espinosa ; [facility] Meloxicam 15 MG Oral Tablet 07/03/2022 - 07/17/2022 Pr ovider: Jesus Espinosa MD Diagnosis: once a day Last Documented On 3 8:45AM By Barbara Correa ; [facility] Ondansetron HCl 4 MG Oral Tablet 06/30/2022 - 07/07/2022 Provider: Jesus Zimmer MD Diagnosis: 1 po q 6h prn nausea Last Documented On 3 1:35PM By Jesus Espinosa ; [facility] oxyCODONE HCl 5 MG Oral Tablet 06/30/2022 - 07/10/2022 Provider: Jesus Zimmer MD Diagnosis: Take 1 tablet by mouth every 4-6 hrs for break through pain Last Documented On 3 1:35PM By Jesus Espinosa ; [facility] Acetaminophen 500 MG Oral Tablet 06/30/2022 - 07/14/2022 Provider: Jesus Zimmer MD Diagnosis: Take 2 tablets by mouth every 8 hours Last Documented On 3 1:35PM By Jesus Espinosa ; [facility] Cefadroxil 500 MG Oral Capsule 06/30/2022 - 07/07/2022 Provider: Jesus Zimmer MD Diagnosis: Take 1 tablet by mouth every 12 hours for 7 days Last Documented On 3 1:35PM By Jesus Espinosa ; [facility] Aspirin EC 81 MG Oral Tablet Delayed Release 06/30/2022 - 08/11/2022 Provider: Jesus Espinosa MD Diagnosis: Take 1 tablet by mouth every 12 hours for 42 days post op Last Documented On 3 1:35PM By Jesus Espinosa ; [facility] Vitamin D3 50 MCG (1999 [place]) Oral Tablet 06/20/2022 - 07/20/2022 Provider: Diana ABDI Diagnosis: once a day Last Documented On 3 1:03PM By Diana Rosas ; [facility] EC-RX Estradiol 0.4% Transdermal Cream 06/15/2022 - Provider: Diagnosis: Last Documented On 3 9:04AM By Merari Parson ; [facility] Retin-A 0.025% External Cream 06/15/2022 - 06/15/2022 Provider: Diagnosis: Last Documented On 3 9:03AM By Merari Parson ; [facility] Nystatin 264291 UNIT/GM External Cream 06/15/2022 - Provider: Diagnosis: Last Documented On 3 9:03AM By Merari Parson ; [facility] amLODIPine Besylate 10 MG Or al Tablet 02/10/2022 - 01/30/2024 Provider: MADI CHAPIN MD Diagnosis: Last Documented On 4 2:44PM By Karen Ornelas ; [facility] Atorvastatin Calcium 20 MG O ral Tablet 01/30/2022 - 01/30/2024 Provider: MADI CHAPIN MD Diagnosis: Last Documented On 4 2:44PM By Karen Ornelas ; [facility] cloNIDine HCl 0.1 MG Oral Tablet 01/10/2022 - 01/30/20 24 Provider: Diagnosis: Last Documented On 4 2:44PM By Karen Ornelas ; [facility] Potassium Chloride Amy ER 2 0 MEQ Oral Tablet Extended Release 11/28/2021 - 01/30/2024 Provider: MADI CHAPIN MD Diagnosis: Last Documented On 4 2:44PM By Karen Ornelas ; [facility] cloNIDine HCl 0.1 MG Oral Tablet 10/05/2020 - 11/05/19 21 Provider: Diagnosis: Last Documented On 1 3:16PM By Adele Trevino ; [facility] Fetzima 40mg Oral Tablet 10/05/2020 - 06/15/2022 Provi kiera: Diagnosis: Last Documented On 3 8:29AM By Merari Parson ; [facility] cloNIDine HCl 0.1 MG Oral Tablet 10/05/2020 - 10/06/19 21 Provider: Diagnosis: Last Documented On 1 3:16PM By Adele Trevino ; [facility] Acyclovir 400 MG Oral Tablet 10/05/2020 - 10/05/2020 P rovider: Diagnosis: Last Documented On 1 3:19PM By Adele Trevino ; [facility] Vicodin HP 10-300 MG Oral Tablet 10/05/2020 - 06/16/19 23 Provider: Diagnosis: Last Documented On 3 8:30AM By Merari Parson ; [facility] Atorvastatin Calcium 20 MG Oral Tablet 10/05/2020 - Provider: Diagnosis: Last Documented On 1 3:18PM By Adele Trevino ; [facility] Atorvastatin Calcium 20 MG O ral Tablet 10/05/2020 - 11/04/2020 Provider: MADI CHAPIN MD Diagnosis: Last Documented On 1 3:18PM By Adele Trevino ; [facility] Percocet 7.5-325 MG Oral Tablet 10/07/2019 - Provider: Timothy Foster MD Diagnosis: 1 every 4 - 6 hours prn post op pain Last Documented On 1 3:16PM By Adele Trevino ; [facility] Zofran 4 MG Oral Tablet 09/24/2019 - 10/05/2020 Provid er: Timothy Foster MD Diagnosis: 1 tab every 6 hrs prn pain Last Documented On 1 3:17PM By Adele Trevino ; [facility] Keflex 250 MG Oral Capsule 09/24/2019 - 10/05/2020 Pro vider: Timothy Foster MD Diagnosis: four times a day Last Documented On 1 3:17PM By Adele Trevino ; [facility] Aspirin 325 MG Oral Tablet 09/24/2019 - 10/05/2020 Pro vider: Timothy Foster MD Diagnosis: twice a day Last Documented On 1 3:16PM By Adele Trevino ; [facility] Xarelto 10 MG Oral Tablet 09/24/2019 - 10/05/2020 Prov ider: Timothy Foster MD Diagnosis: once a day for first seven d ays after joint replacement, then transiition to aspirin Last Documented On 1 3:17PM By Adele Trevino ; [facility] Percocet 7.5-325 MG Oral Tablet 09/24/2019 - Provider: Timothy Foster MD Diagnosis: 1 every 4 - 6 hours prn post op pain Last Documented On 3:16PM By Adelemaribel Trevino ; [facility] Mupirocin 2% External Ointment 07/31/2019 - 10/05/2020 Provider: Timothy Foster MD Diagnosis: take as directed Apply cream twice a day to each nostril five days prior to surgery. Last Documented On 3:17PM By Adele Belinda ; [facility] 10-325 MG Oral Tablet 04/25/2019 - 10/05/2020 Pr ovider: Timothy Foster MD Diagnosis: [id number] prn post op pain Last Documented On 3:17PM By Adelejudy Trevino ; [facility] Nystatin 315462 UNIT/GM Exte rnal Cream 01/20/2019 - 10/05/2020 Provider: MADI CHAPIN MD Diagnosis: Last Documented On 3:18PM By Adelemaribel Trevino ; [facility] Clindamycin-Tretinoin 1.2-0. 025% External Gel 01/20/2019 - 10/05/2020 Provider: MADI CHAPIN MD Diagnosis: Last Documented On 3:19PM By Adelemaribel Trevino ; [facility] Estradiol 0.025 MG/24HR Saba sdermal Patch Twice Weekly 01/17/2019 - 10/05/2020 Provider: Diagnosis: Last Documented On 3:19PM By Adele Belinda ; [facility] Lisinopril 5MG Oral Tablet 08/12/2018 - 10/05/2020 Pro vider: MADI CHAPIN MD Diagnosis: Last Documented On 3:18PM By [facility] ; [facility] oxyCODONE HCl 5MG Oral Tablet 07/22/2018 - 10/05/2020 Provider: Bautista christie MD Diagnosis: 1-2 po q 4-6h prn post op pain Last Documented On 07/06/202 1 3:17PM By Adele Trevino ; [facility] oxyCODONE HCl 5MG Oral Tablet 07/17/2018 - 10/05/2020 Provider: Bautista christie MD Diagnosis: 1-2 po q 4-6h prn post op pain Last Documented On 1 3:17PM By Adele Trevino ; [facility] Zofran 4MG Oral Tablet 07/17/2018 - 10/05/2020 Provide r: Bautista Luis MD Diagnosis: Take 1 tablet every 8 hrs pr n pain Take 1 tablet every 8 hrs prn post op nausea Last Documented On 1 3:17PM By Adelemaribel Trevino ; [facility] Benzoyl Peroxide Wash 5% External Liquid 07/17/2018 - 10/05/2020 Provider: Bautista christie MD Diagnosis: use as directed by Dr. Luis Last Documented On 1 3:17PM By Adlee Trevino ; [facility] Acyclovir 400MG Oral Tablet 05/29/2018 - 10/05/2020 Pr ovider: Diagnosis: Last Documented On 1 3:19PM By Adele Trevino ; [facility] Estradiol 1MG Oral Tablet 05/29/2018 - 10/05/2020 Prov ider: Diagnosis: Last Documented On 1 3:18PM By Adele Trevino ; [facility] Lomotil 2.5-0.025MG Oral Tablet 05/29/2018 - Provider: Diagnosis: Last Documented On 1 3:17PM By Adele Trevino ; [facility] Atorvastatin Calcium 20MG Or al Tablet 05/14/2018 - 10/05/2020 Provider: MADI CHAPIN MD Diagnosis: Last Documented On 1 3:18PM By Adele Trevino ; [facility] Nortriptyline HCl 50MG Oral Capsule 05/03/2018 - 10/05 Provider: Diagnosis: Last Documented On 1 3:16PM By Adele Trevino ; [facility] cloNIDine HCl 0.1MG Oral Tablet 05/03/2018 - Provider: Diagnosis: Last Documented On 1 3:16PM By Adele Trevino ; [facility] Furosemide 40MG Oral Tablet 05/01/2018 - 10/05/2020 Pr ovider: MADI CHAPIN MD Diagnosis: Last Documented On 1 3:16PM By Adele Trevino ; [facility] DULoxetine HCl 30MG Oral Cap shashi Delayed Release Particles 04/30/2018 - 10/05/2020 Provider: Diagnosis: Last Documented On 1 3:16PM By Adele Trevino ; [facility] traMADol HCl 50MG Oral Tablet 04/30/2018 - 10/05/2020 Provider: Baldemar Duckworth MD Diagnosis: Last Documented On 1 3:16PM By Adele Trevino ; [facility] Medications Administered Includes: Administered Medications in patient's chart No Administered Medications Recorded Vital Signs Includes: Vital Signs from 01/26/2024 through 01/25/2025 Vital Name 06/16/2024 01:12P 01/30/2024 02: 45P Height (in) 62 62 Weight (lb) 160 140 Body Mass Index 29.3 25.6 Body Surface Area 1.7 1.6 Note: jaa ct Last Documented: On 06/16/2024 1:12PM ; [facility] On 01/30/2024 3:32PM ; [facility] Results Includes: Results from 01/26/2024 through 01/25/2025 No Results Recorded For Specified Dates History of Present Illness History of Present Illness not supported for this document type No History of Present Illness Recorded Social History Description Last Updated Recent change in diet 01/30/2024 Last Documented On 4 4:58PM ; [facility] Not a current smoker. 01/30/2024 Last Documented On 4 4:58PM ; [facility] Tobacco non-user 02/17/2022 Last Documented On 2 6:54AM ; [facility] Caffeine use 10/05/2020 Last Documented On 1 1:17PM ; [facility] Exercising regularly 10/05/2020 Last Documented On 1 1:17PM ; [facility] No recent change in diet 10/05/2020 Last Documented On 1 1:17PM ; [facility] Not a current smoker. 10/05/2020 Last Documented On 1 1:17PM ; [facility] Not using alcohol 10/05/2020 Last Documented On 1 1:17PM ; [facility] Not using drugs 10/05/2020 Last Documented On 1 1:17PM ; [facility] Non-smoker 10/05/2020 Last Documented On 1 1:17PM ; [facility] Not a current smoker 05/29/2018 Last Documented On 9 9:38AM ; [facility] No tobacco use 05/29/2018 Last Documented On 9 9:38AM ; [facility] Smoking status : Former smoker 9 Last Documented On 9 9:38AM ; [facility] Procedures and Surgical History Includes: Procedures from 01/26/2024 through 01/25/2025 Procedures Code Diagnosis Performing Provider Service Location Service Date HIP BILATERAL 25908 Unilateral prima ry osteoarthritis, right hip, Trochanteric bursitis, left hip Jesus Espinosa MD [facility] 06/16/2024 Last Documented On 5 1:32PM ; [facility] X-RAY EXAM OF SHOULDER 2-3 VIEWS (LEFT) 48701 Pain in left shoulder, Presence of left artificial shoulder joint Chandra Grewal PA-C [facility] 01/30/2024 Last Documented On 4 10:59AM ; [facility] Surgical History Last Updated History of History of Arthroscopy 2023 Last Documented On 4 4:58PM ; [facility] History of Previous Fractures 01/30/2024 Last Documented On 4 4:58PM ; [facility] History of total hip replacement 024 Last Documented On 4 4:58PM ; [facility] History of total knee arthroplasty 01/29 Last Documented On 4 4:58PM ; [facility] Past Surgical History: 03/16/2023 Last Documented On 3 11:26AM ; [facility] Medical History Includes: Medical History in patient's chart Description Last Updated History of asthma 01/30/2024 Last Documented On 4 4:58PM ; [facility] History of History of Blood Transfusion 01/30/2024 Last Documented On 4 4:58PM ; [facility] History of Hypertension 01/30/2024 Last Documented On 4 4:58PM ; [facility] History of Anemia 03/16/2023 Last Documented On 3 11:26AM ; [facility] History of arthritis 03/16/2023 Last Documented On 3 11:26AM ; [facility] History of History of Blood Clots 2022 Last Documented On 3 11:26AM ; [facility] Anemia 10/05/2020 Last Documented On 1 1:17PM ; [facility] Arthritis 10/05/2020 Last Documented On 1 1:17PM ; [facility] [facility]throscopy 10/05/2020 Last Documented On 1 1:17PM ; [facility] Recent immunization for flu 10/05/2020 Last Documented On 1 1:17PM ; [facility] Recent immunization for pneumococcal pne umonia 10/05/2020 Last Documented On 1 1:17PM ; [facility] Shoulder arthroplasty 10/05/2020 Last Documented On 1 1:17PM ; [facility] Total hip replacement 10/05/2020 Last Documented On 1 1:17PM ; [facility] Total knee arthroplasty 10/05/2020 Last Documented On 1 1:17PM ; [facility] arthroscopy ~total joint replacement ~hi gh cholesterol 05/29/2018 Last Documented On 9 9:38AM ; [facility] Arthritic joint problems 05/29/2018 Last Documented On 9 9:38AM ; [facility] History of depression 05/29/2018 Last Documented On 9 9:38AM ; [facility] History of hepatitis C 05/29/2018 Last Documented On 9 9:38AM ; [facility] Family History Includes: Family History in patient's chart Description Last Updated Family history of cancer 10/05/2020 Last Documented On 1 1:17PM ; [facility] Family history of osteoporosis 1 Last Documented On 1 1:17PM ; [facility] Family history of thromboembolic disease 05/29/2018 Last Documented On 9 9:38AM ; [facility] No significant family history maternal- Breast cancer 05/29/2018 Last Documented On 9 9:38AM ; [facility] Review of Systems Review of Systems [...] Active Last Documented On 06/16/2024 12:48PM ; [facility] Note: joint pain- Major fluoroquinolones Allergy 09/04/2018 Ac tive Last Documented On 5 12:48PM ; [facility] Encounters Includes: Encounters from 01/26/2024 through 01/25/2025 Encounter Provider Location Date Check-In Time Check-Out Time Diagnosis Follow Up Jesus Espinosa MD [facility] 06/17/19 25 12:43PM 1:40PM Follow Up Chandra Grewal PA-C [facility] 01/30/20 24 2:50PM 3:29PM Overweight Insurance Includes: Active Insurance Policies Plan Name Member ID Group # Subscriber Relationship Effect sherman Dates 1 - Medicare Part B [facility] [id number] Farrah Atkinson Self 4 - Unknown 2 - [facility] [id number] Farrah Atkinson Self 05/03/2019 - Unknown Clinical Notes Includes: Signed Clinical Notes starting from 03/16/2022 * Progress note Date Encounter Last Documented by 06/16/2024 Follow Up Last documented on 06/16/2024; 1:41 PM, Jesus Espinosa MD; [facility] Active Problems & Conditions - [...] total hip replacement done in 2007 in [place]. She states she is having groin pain [...] directed 0 days, 0 refills - Nystatin-Triamcinolone 124398-8.1 UNIT/GM-% External Cream take as directed 0 [...] Findings - Vitals taken 06/16/2024 01:12 pm ethel Height 62 in Weight 160 lbs Body [...] Care Team - Chandra Leahy MD - PANTOGRAPH TRANSFERRER * Progress note Date Encounter Last Documented by 01/30/2024 Follow Up Last documented on 01/30/2024; 4:58 PM, Chandra Grewal PA-C; [facility] Active Problems & Conditions - [...] will refer her to Dr. Mixon in [place] for further evaluation and treatment. Current Medication [...] directed 0 days, 0 refills - Nystatin-Triamcinolone 556527-0.1 UNIT/GM-% External Cream take as directed 0 [...] Orthopedic Instructions: REFFERAL TO SHARON MIXON @ [facility] ([phone]) Referral/Orthopedic: Consult with Orthopedic Instructions: Dr Sharon [...] Care Team - Chandra Leahy MD - PANTOGRAPH TRANSFERRER
--- OUTSIDE RECORDS SUMMARY | 2025-01-25 00:38 | XMS_ITS | Clinical Summary ---
Author Organization [facility] , [facility] Address [address] [place] [address] Phone Care Team Providers Care Mobile Developer Name Role Phone Tosin VARGAS, Chandra Flores Unavailable [phone] Chel VARGAS, Davidson Unavailable [phone] Timothy Granda Primary Care Provider Unavailabl e Reason for Visit and Chief Complaint The Chief Complaint is: Left shoulder pain Problems Includes: Problems addressed during this encounter and other active Problems All Visits Onset Date Resolved Date Provider Condition S tatus Joint Pain Shoulder Left 03/16/2023 Funmi Robles PA-C Active Last Documented On 3 10:30AM ; [facility], [facility] Joint Pain Left Knee 03/31/2022 Jesus giles MD Active Last Documented On 2 10:01AM ; [facility], [facility] Joint Pain Right Knee 02/12/2019 Timothy dye MD Active Last Documented On 9 10:35AM ; [facility], [facility] Joint Pain Hip Right 02/12/2019 Timothy Foster MD Active Last Documented On 9 10:35AM ; [facility], [facility] Joint Pain Shoulder 05/29/2018 Bautista christie MD Active Last Documented On 9 10:31AM ; [facility], [facility] Plan of Treatment - Patient screened for future fall risk: documentation of any fall with injury in past year - Last Documented On 01/30/2024 4:58PM ; [facility], [facility] Fall Risk Assessment: This patient has [...] Last Documented On 01/30/2024 4:58PM ; [facility] Referrals To Diagnosis Consult with Orthopedic Overweig ht Note: REFFERAL TO SHARON Orozco @ [facility] ([phone]) Last Documented On 4 4:58PM ; [facility]: Dr Sharon [facility] // cc Last Documented On 4 11:37AM ; [facility] Instructions to patient Lose weight Last Documented On 4 2:44PM ; [facility] Assessments Includes: Assessments from this encounter Findings - Overweight - Last Documented On 01/30/2024 4:58PM ; [facility] Instructions Includes: Instructions from this encounter Instructions to patient Lose weight Last Documented On 4 2:44PM ; [facility] Medical Equipment - Implanted Devices Includes: Current Devices No Medical Equipment Recorded Medications Includes: Medications discussed during this encounter and other current Medications Discontinued / Stopped on this date Chandra Leahy MD on 03/12/2023 Acyclovir 400 MG Oral Tablet Provider: Chandra Leahy MD Diagnosis: Last Documented On 4 2:43PM By Karen [facility] Eliquis 5 MG Oral Tablet Provider: Aaron Leahy MD Diagnosis: Last Documented On 4 2:43PM By [facility] Diphenoxylate-Atropine 2.5-0.025 MG Oral Tablet Provider: Diagnosis: Last Documented On 4 2:43PM By Karen [facility] OxyCONTIN 20 MG Oral Tablet ER 12 Hour Abuse-Deterrent Provider: Diagnosis: Last Documented On 4 2:43PM By Karen Ornelas ; [facility] Sulfamethoxazole-Trimethoprim 400-80 MG Oral Tablet Provider: Diagnosis: Last Documented On 4 2:43PM By Karen Ornelas ; [facility] Potassium Chloride Amy ER 2 0 MEQ Oral Tablet Extended Release Provider: MADI CHAPIN MD Diagnosis: Last Documented On 4 2:43PM By Karen Ornelas ; [facility] Levothyroxine Sodium 25 MCG Oral Tablet P rovider: Chandra Leahy MD Diagnosis: Last Documented On 4 2:43PM By Karen Ornelas ; [facility] amLODIPine Besylate 5 MG Oral Tablet Prov ider: Diagnosis: Last Documented On 4 2:43PM By Karen Ornelas ; [facility] Cephalexin 500 MG Oral Capsule Provider: Diagnosis: Last Documented On 4 2:43PM By Karen Ornelas ; [facility] oxyCODONE HCl 10 MG Oral Tablet Provider: Chandra Leahy MD Diagnosis: Last Documented On 4 2:43PM By Karen Ornelas ; [facility] amLODIPine Besylate 10 MG Oral Tablet Pro vider: MADI CHAPIN MD Diagnosis: Last Documented On 4 2:44PM By Karen Ornelas ; [facility] Atorvastatin Calcium 20 MG Oral Tablet Pr ovider: MADI CHAPIN MD Diagnosis: Last Documented On 4 2:44PM By Karen Ornelas ; [facility] cloNIDine HCl 0.1 MG Oral Tablet Provider : Diagnosis: Last Documented On 4 2:44PM By Karen Ornelas ; [facility] Potassium Chloride Amy ER 2 0 MEQ Oral Tablet Extended Release Provider: MADI CHAPIN MD Diagnosis: Last Documented On 4 2:44PM By Karen Ornelas ; [facility] Current Medications (continue as prescribed) Acyclovir 400 MG Oral Tablet 01/27/2024 Provider: Diagnosis: Last Documented On 4 2:44PM By Karen Ornelas ; [facility] oxyCODONE HCl 10 MG Oral Tablet 01/22/2024 Provider: Diagnosis: Last Documented On 4 2:44PM By Karen Ornelas ; [facility] Dicyclomine HCl 10 MG Oral Capsule 01/22/2024 Provid er: CASTILLO ESPINO II, MD Diagnosis: Last Documented On 4 2:44PM By Karen Ornelas ; [facility] tiZANidine HCl 4 MG Oral Tablet 01/18/2024 Provider: Diagnosis: Last Documented On 4 2:44PM By Karen Ornelas ; [facility] Sulfamethoxazole-Trimethoprim 400-80 MG Oral Tablet Provider: Diagnosis: Last Documented On 4 2:44PM By Karen Ornelas ; [facility] DULoxetine HCl 60 MG Oral Capsule Delayed Releas e Particles 01/18/2024 Provider: Diagnosis: Last Documented On 4 2:44PM By Karen Ornelas ; [facility] HYDROmorphone HCl 4 MG Oral Tablet 01/08/2024 Provid er: Diagnosis: Last Documented On 4 2:44PM By Karen Ornelas ; [facility] Fluticasone-Salmeterol 100-5 0 MCG/ACT Inhalation Aerosol Powder Breath Activated 01/08/2024 Provider: Diagnosis: Last Documented On 4 2:44PM By Karen Ornelas ; [facility] Atorvastatin Calcium 40 MG Oral Tablet 01/08/2024 Pr ovider: Diagnosis: Last Documented On 4 2:44PM By Karen Ornelas ; [facility] Levothyroxine Sodium 25 MCG Oral Tablet 12/31/2023 P rovider: Diagnosis: Last Documented On 4 2:44PM By Karen Ornelas ; [facility] Eliquis 5 MG Oral Tablet 12/31/2023 Provider: Diagnosis: Last Documented On 4 2:44PM By Karen Ornelas ; [facility] Atorvastatin Calcium 20 MG Oral Tablet 12/31/2023 Pr ovider: Diagnosis: Last Documented On 4 2:44PM By Karen Orneals ; [facility], [facility] amLODIPine Besylate 5 MG Oral Tablet 12/10/2023 Prov ider: Diagnosis: Last Documented On 4 2:44PM By Karen Ornelas ; [facility], [facility] Albuterol Sulfate 108 (90 Ba se) MCG/ACT Inhalation Aerosol Powder Breath Activated 06/15/2022 Provider: Diagnosis: Last Documented On 3 8:21AM By Merari Parson ; [facility], [facility] Cymbalta 20 MG Oral Capsule Delayed Release Particles 06/15/2022 Provider: Diagnosis: Last Documented On 3 8:21AM By Merari Parson ; [facility], [facility] Estradiol 0.1 MG/GM Vaginal Cream 06/15/2022 Provide r: Diagnosis: Last Documented On 3 9:04AM By Merari Parson ; [facility], [facility] Retin-A 0.1% External Cream 06/15/2022 Provider: Diagnosis: Last Documented On 3 9:03AM By Merari Parson ; [facility], [facility] Nystatin-Triamcinolone 900051-5.1 UNIT/GM-% External C ream 06/15/2022 Provider: Diagnosis: Last Documented On 3 9:02AM By Merari Parson ; [facility], [facility] Triamcinolone Acetonide 0.1% External Cream 06/15/2022 Provider: Diagnosis: Last Documented On 3 8:29AM By Merari Parson ; [facility], [facility] oxyCODONE HCl 10 MG Oral Tablet 06/15/2022 Provider: Diagnosis: Last Documented On 3 8:27AM By Merari Parson ; [facility], [facility] Losartan Potassium 50 MG Oral Tablet 06/15/2022 Prov ider: Diagnosis: Last Documented On 3 8:26AM By Merari Parson ; [facility], [facility] Fluticasone-Salmeterol 250-5 0 MCG/ACT Inhalation Aerosol Powder Breath Activated 06/15/2022 Provider: Diagnosis: Last Documented On 3 8:25AM By Merari Parson ; [facility], [facility] Diphenoxylate-Atropine 2.5-0.025 MG Oral Tablet 2022 Provider: Diagnosis: Last Documented On 3 8:22AM By Merari Parson ; [facility], [facility] Acyclovir 400 MG Oral Tablet 10/05/2020 Provider: Diagnosis: Last Documented On 1 3:19PM By Adele Trevino ; [facility], [facility] Past Medications on file oxyCODONE HCl 5 MG Oral Tablet 07/19/2022 - 07/29/2022 Provider: Jesus Zimmer MD Diagnosis: Take 1 tablet by mouth every 4-6 hrs for break through pain Last Documented On 3 11:00AM By Jesus Espinosa ; [facility], [facility] Meloxicam 15 MG Oral Tablet 07/03/2022 - 07/17/2022 Pr ovider: Jesus Espinosa MD Diagnosis: once a day Last Documented On 3 8:45AM By Barbara Correa ; [facility], [facility] Ondansetron HCl 4 MG Oral Tablet 06/30/2022 - 07/07/2022 Provider: Jesus Zimmer MD Diagnosis: 1 po q 6h prn nausea Last Documented On 3 1:35PM By Jesus Espinosa ; [facility], [facility] oxyCODONE HCl 5 MG Oral Tablet 06/30/2022 - 07/10/2022 Provider: Jesus Zimmer MD Diagnosis: Take 1 tablet by mouth every 4-6 hrs for break through pain Last Documented On 3 1:35PM By Jesus Espinosa ; [facility], [facility] Acetaminophen 500 MG Oral Tablet 06/30/2022 - 07/14/2022 Provider: Jesus Zimmer MD Diagnosis: Take 2 tablets by mouth every 8 hours Last Documented On 3 1:35PM By Jesus Espinosa ; [facility], [facility] Cefadroxil 500 MG Oral Capsule 06/30/2022 - 07/07/2022 Provider: Jesus Zimmer MD Diagnosis: Take 1 tablet by mouth every 12 hours for 7 days Last Documented On 3 1:35PM By Jesus Espinosa ; [facility], [facility] Aspirin EC 81 MG Oral Tablet Delayed Release 06/30/2022 - 08/11/2022 Provider: Jesus Espinosa MD Diagnosis: Take 1 tablet by mouth every 12 hours for 42 days post op Last Documented On 3 1:35PM By Jesus Espinosa ; [facility], [facility] Vitamin D3 50 MCG (1999 [place]) Oral Tablet 06/20/2022 - 07/20/2022 Provider: Diana ABDI Diagnosis: once a day Last Documented On 3 1:03PM By Diana Rosas ; [facility], [facility] cloNIDine HCl 0.1 MG Oral Tablet 10/05/2020 - 11/05/19 Provider: Diagnosis: Last Documented On 1 3:16PM By Adele Sawyer [facility], [facility] Atorvastatin Calcium 20 MG O ral Tablet 10/05/2020 - 11/04/2020 Provider: MADI CHAPIN MD Diagnosis: Last Documented On 1 3:18PM By Adele Trevino ; [facility], [facility] Medications Administered Includes: Administered Medications from this encounter No Administered Medications Recorded Vital Signs Includes: Vital Signs from this encounter Vital Name 01/30/2024 02:45P Height (in) 62 Weight (lb) 140 Body Mass Index 25.6 Body Surface Area 1.6 Note: ct Last Documented: On 01/30/2024 3:32PM ; [facility], [facility] Results Includes: Results discussed during this [...] will refer her to Dr. Mixon in [place] for further evaluation and treatment. Social History Description Last Updated Recent change in diet 01/30/2024 Last Documented On 4 4:58PM ; [facility], [facility] Not a current smoker. 01/30/2024 Last Documented On 4 4:58PM ; [facility], [facility] Caffeine use 10/05/2020 Last Documented On 4 2:44PM ; [facility], [facility] Exercising regularly 10/05/2020 Last Documented On 4 2:44PM ; [facility], [facility] No recent change in diet 10/05/2020 Last Documented On 4 2:44PM ; [facility], [facility] Not a current smoker. 10/05/2020 Last Documented On 4 2:44PM ; [facility], [facility] Not using alcohol 10/05/2020 Last Documented On 4 2:44PM ; [facility], [facility] Not using drugs 10/05/2020 Last Documented On 4 2:44PM ; [facility], [facility] No tobacco use 05/29/2018 Last Documented On 4 2:44PM ; [facility] Smoking Status Unknown Procedures and Surgical History Includes: Procedures from this encounter Procedures Code Diagnosis Performing Provider Service Location Service Date X-RAY EXAM OF SHOULDER 2-3 VIEWS (LEFT) 07794 Pain in left shoulder, Presence of left artificial shoulder joint Chandra Grewal PA-C [facility] 01/30/2024 Last Documented On 4 10:59AM ; [facility] use of tobacco assessment performed 1000F Last Documented On 4 2:44PM ; [facility] patient screened for future fall risk: documentation of any fall with injury in past year 1100F Last Documented On 4 2:44PM ; [facility] review of medications documented 1160F Last Documented On 4 2:44PM ; [facility] an X-ray was performed 74218 Last Documented On 4 2:44PM ; [facility] [place] scan [address] Last Documented On 4 3:34PM ; [facility] an MRI was performed 20894 Last Documented On 4 2:44PM ; [facility] Surgical History Last Updated History of History of Arthroscopy 2023 Last Documented On 4 4:58PM ; [facility] History of Previous Fractures 01/30/2024 Last Documented On 4 4:58PM ; [facility] History of total hip replacement 024 Last Documented On 4 4:58PM ; [facility] History of total knee arthroplasty 01/29 Last Documented On 4 4:58PM ; [facility] Past Surgical History: 03/16/2023 Last Documented On 4 2:44PM ; [facility] Medical History Includes: Medical History addressed during this encounter Description Last Updated History of asthma 01/30/2024 Last Documented On 4 4:58PM ; [facility] History of History of Blood Transfusion 01/30/2024 Last Documented On 4 4:58PM ; [facility], [facility] History of Hypertension 01/30/2024 Last Documented On 4 4:58PM ; [facility] History of Anemia 03/16/2023 Last Documented On 4 2:44PM ; [facility], [facility] History of arthritis 03/16/2023 Last Documented On 4 2:44PM ; [facility], [facility] History of History of Blood Clots 2022 Last Documented On 4 2:44PM ; [facility] Anemia 10/05/2020 Last Documented On 4 2:44PM ; [facility], [facility] Arthritis 10/05/2020 Last Documented On 4 2:44PM ; [facility], [facility] History of Arthroscopy 10/05/2020 Last Documented On 4 2:44PM ; [facility], [facility] Recent immunization for flu 10/05/2020 Last Documented On 4 2:44PM ; [facility], [facility] Recent immunization for pneumococcal pne umonia 10/05/2020 Last Documented On 4 2:44PM ; [facility] Shoulder arthroplasty 10/05/2020 Last Documented On 4 2:44PM ; [facility], [facility] Total hip replacement 10/05/2020 Last Documented On 4 2:44PM ; [facility], [facility] Total knee arthroplasty 10/05/2020 Last Documented On 4 2:44PM ; [facility], [facility] arthroscopy ~total joint replacement ~hi gh cholesterol 05/29/2018 Last Documented On 4 2:44PM ; [facility] Arthritic joint problems 05/29/2018 Last Documented On 4 2:44PM ; [facility] History of depression 05/29/2018 Last Documented On 4 2:44PM ; [facility], [facility] History of hepatitis C 05/29/2018 Last Documented On 4 2:44PM ; [facility], [facility] Family History Includes: Family History addressed during this encounter Description Last Updated Family history of cancer 10/05/2020 Last Documented On 4 2:44PM ; [facility] Family history of osteoporosis 1 Last Documented On 4 2:44PM ; [facility] Family history of thromboembolic disease 05/29/2018 Last Documented On 4 2:44PM ; [facility] Review of Systems Includes: Review of Systems [...] Active Last Documented On 06/16/2024 12:48PM ; [facility] Note: joint pain- Major fluoroquinolones Allergy 09/04/2018 Ac tive Last Documented On 5 12:48PM ; [facility] Encounters Encounter Provider Location Date Check-In Time Check-Out Time Diagnosis Follow Up Chandra Grewal PA-C [facility] 01/30/20 24 2:50PM 3:29PM Overweight Insurance Includes: Active Insurance Policies Plan Name Member ID Group # Subscriber Relationship Effect sherman Dates 1 - Medicare Part B [facility] [id number] Farrah Atkinson Self 4 - Unknown 2 - [facility] [id number] Farrah Atkinson Self 05/03/2019 - Unknown Clinical Notes Includes: Clinical Notes from this encounter * Progress note Date Encounter Last Documented by 01/30/2024 Follow Up Last documented on 01/30/2024; 4:58 PM, Chandra Grewal PA-C; [facility], [facility] Active Problems & Conditions - Joint [...] will refer her to Dr. Mixon in [place] for further evaluation and treatment. Current Medication [...] directed 0 days, 0 refills - Nystatin-Triamcinolone 421425-6.1 UNIT/GM-% External Cream take as directed 0 [...] Instructions: REFFERAL TO SHARON MIXON @ [facility] ([phone]) Referral/Orthopedic: Consult with Orthopedic Instructions: Dr Sharon [...] Care Team - Chandra Leahy MD - FOREIGN LANGUAGE INSTRUCTOR
--- OUTSIDE RECORDS SUMMARY | 2025-01-25 00:38 | XMS_ITS | Encounter Summary ---
Author Organization [facility] Address [address] [place] [address], [address] [place] [address] Care Team Providers Care Gang Saw Operator Name Role Phone Unavailable Primary Care Provider Unavailabl e Reason for Visit * Reason Onset Date Comments Care Coordination 11/21/2024 Nurse navigato r Encounter Details Date Type Department Care Team (Late st Contact Info) Description 11/21/2024 Telephone [facility] Orthopedic and Sports Medicine [place] [phone] Willa Lan RN Care Coordination (Nurse navigator) [...]
--- OUTSIDE RECORDS SUMMARY | 2025-01-25 00:38 | XMS_ITS | Clinical Summary ---
Author Organization [facility] , [facility] Address [address] [place] [address] Phone Care Team Providers Care Trash Hauler Name Role Phone Tosin VARGAS, Chandra Flores Unavailable [phone] Chel VARGAS, Davidson Unavailable [phone] Timothy Granda Primary Care Provider Unavailabl e Reason for Visit and Chief Complaint The Chief Complaint is: L hip pain Problems Includes: Problems addressed during this encounter and other active Problems All Visits Onset Date Resolved Date Provider Condition S tatus Joint Pain Shoulder Left 03/16/2023 Funmi Robles PA-C Active Last Documented On 3 10:30AM ; [facility], [facility] Joint Pain Left Knee 03/31/2022 Jesus giles MD Active Last Documented On 2 10:01AM ; [facility], [facility] Joint Pain Right Knee 02/12/2019 Timothy dye MD Active Last Documented On 9 10:35AM ; [facility], [facility] Joint Pain Hip Right 02/12/2019 Timothy Foster MD Active Last Documented On 9 10:35AM ; [facility], [facility] Joint Pain Shoulder 05/29/2018 Bautista christie MD Active Last Documented On 9 10:31AM ; [facility], [facility] Plan of Treatment - Patient screened for future fall risk: documentation of any fall with injury in past year - Last Documented On 06/16/2024 1:41PM ; [facility], [facility] Fall Risk Assessment: This patient has [...] - Last Documented On 06/16/2024 1:41PM ; [facility], [facility] Instructions to patient Lose weight Last Documented On 12:49PM ; [facility], [facility] Lose weight Last Documented On 12:50PM ; [facility], [facility] Assessments Includes: Assessments from this encounter [...] - Last Documented On 06/16/2024 1:41PM ; [facility], [facility] Instructions Includes: Instructions from this encounter Instructions to patient Lose weight Last Documented On 5 12:49PM ; [facility], [facility] Lose weight Last Documented On 5 12:50PM ; [facility], [facility] Medical Equipment - Implanted Devices Includes: Current Devices No Medical Equipment Recorded Medications Includes: Medications discussed during this encounter and other current Medications Current Medications (continue as prescribed) Acyclovir 400 MG Oral Tablet 01/27/2024 Provider: Diagnosis: Last Documented On 4 2:44PM By Karen Sawyer [facility], [facility] oxyCODONE HCl 10 MG Oral Tablet 01/22/2024 Provider: Diagnosis: Last Documented On 4 2:44PM By Karen Ornelas ; [facility], [facility] Dicyclomine HCl 10 MG Oral Capsule [...] Ornelas ; [facility], [facility] DULoxetine HCl 60 MG Oral Capsule Delayed Releas e Particles 01/18/2024 Provider: Diagnosis: Last Documented On 4 2:44PM By Karen Ornelas ; [facility] HYDROmorphone HCl 4 MG Oral Tablet 01/08/2024 Provid er: Diagnosis: Last Documented On 4 2:44PM By Karen Ornelas ; [facility], [facility] Fluticasone-Salmeterol 100-5 0 MCG/ACT Inhalation Aerosol Powder Breath Activated 01/08/2024 Provider: Diagnosis: Last Documented On 4 2:44PM By Karen Ornelas ; [facility], [facility] Atorvastatin Calcium 40 MG Oral Tablet 01/08/2024 Pr ovider: Diagnosis: Last Documented On 4 2:44PM By Karen Ornelas ; [facility], [facility] Levothyroxine Sodium 25 MCG Oral Tablet 12/31/2023 P rovider: Diagnosis: Last Documented On 4 2:44PM By Karen Ornelas ; [facility], [facility] Eliquis 5 MG Oral Tablet 12/31/2023 Provider: Diagnosis: Last Documented On 4 2:44PM By Karen Ornelas ; [facility], [facility] Atorvastatin Calcium 20 MG Oral Tablet 12/31/2023 Pr ovider: Diagnosis: Last Documented On 4 2:44PM By Karen Ornelas ; [facility], [facility] amLODIPine Besylate 5 MG Oral Tablet 12/10/2023 Prov ider: Diagnosis: Last Documented On 4 2:44PM By Karen Ornelas ; [facility], [facility] Albuterol Sulfate 108 (90 Ba se) MCG/ACT Inhalation Aerosol Powder Breath Activated 06/15/2022 Provider: Diagnosis: Last Documented On 3 8:21AM By Merari Parson ; [facility], [facility] Cymbalta 20 MG Oral Capsule Delayed Release Particles 06/15/2022 Provider: Diagnosis: Last Documented On 3 8:21AM By Merari Parson ; [facility], [facility] Estradiol 0.1 MG/GM Vaginal Cream 06/15/2022 Provide r: Diagnosis: Last Documented On 3 9:04AM By Merari Parson ; [facility], [facility] Retin-A 0.1% External Cream 06/15/2022 Provider: Diagnosis: Last Documented On 3 9:03AM By Merari Parson ; [facility], [facility] Nystatin-Triamcinolone 885742-6.1 UNIT/GM-% External C ream 06/15/2022 Provider: Diagnosis: Last Documented On 3 9:02AM By Merari Parson ; [facility], [facility] Triamcinolone Acetonide 0.1% External Cream 06/15/2022 Provider: Diagnosis: Last Documented On 3 8:29AM By Merari Parson ; [facility], [facility] oxyCODONE HCl 10 MG Oral Tablet 06/15/2022 Provider: Diagnosis: Last Documented On 3 8:27AM By Merari Parson ; [facility], [facility] Losartan Potassium 50 MG Oral Tablet 06/15/2022 Prov ider: Diagnosis: Last Documented On 3 8:26AM By Merari Parson ; [facility], [facility] Fluticasone-Salmeterol 250-5 0 MCG/ACT Inhalation Aerosol Powder Breath Activated 06/15/2022 Provider: Diagnosis: Last Documented On 3 8:25AM By Merari Parson ; [facility], [facility] Diphenoxylate-Atropine 2.5-0.025 MG Oral Tablet 2022 Provider: Diagnosis: Last Documented On 3 8:22AM By Merari Parson ; [facility], [facility] Acyclovir 400 MG Oral Tablet 10/05/2020 Provider: Diagnosis: Last Documented On 1 3:19PM By Adele Trevino ; [facility], [facility] Past Medications on file oxyCODONE HCl 5 MG Oral Tablet 07/19/2022 - 07/29/2022 Provider: Jesus Zimmer MD Diagnosis: Take 1 tablet by mouth every 4-6 hrs for break through pain Last Documented On 3 11:00AM By Jesus Espinosa ; [facility], [facility] Meloxicam 15 MG Oral Tablet 07/03/2022 - 07/17/2022 Pr ovider: Jesus Espinosa MD Diagnosis: once a day Last Documented On 3 8:45AM By Barbara Correa ; [facility], [facility] Ondansetron HCl 4 MG Oral Tablet 06/30/2022 - 07/07/2022 Provider: Jesus Zimmer MD Diagnosis: 1 po q 6h prn nausea Last Documented On 3 1:35PM By Jesus Espinosa ; [facility], [facility] oxyCODONE HCl 5 MG Oral Tablet 06/30/2022 - 07/10/2022 Provider: Jesus Zimmer MD Diagnosis: Take 1 tablet by mouth every 4-6 hrs for break through pain Last Documented On 3 1:35PM By Jesus Espinosa ; [facility], [facility] Acetaminophen 500 MG Oral Tablet 06/30/2022 - 07/14/2022 Provider: Jesus Zimmer MD Diagnosis: Take 2 tablets by mouth every 8 hours Last Documented On 3 1:35PM By Jesus Espinosa ; [facility], [facility] Cefadroxil 500 MG Oral Capsule 06/30/2022 - 07/07/2022 Provider: Jesus Zimmer MD Diagnosis: Take 1 tablet by mouth every 12 hours for 7 days Last Documented On 3 1:35PM By Jesus Espinosa ; [facility], [facility] Aspirin EC 81 MG Oral Tablet Delayed Release 06/30/2022 - 08/11/2022 Provider: Jesus Espinosa MD Diagnosis: Take 1 tablet by mouth every 12 hours for 42 days post op Last Documented On 3 1:35PM By Jesus Sawyer [facility], [facility] Vitamin D3 50 MCG (1999 [place]) Oral Tablet 06/20/2022 - 07/20/2022 Provider: Diana ABDI Diagnosis: once a day Last Documented On 3 1:03PM By [facility] cloNIDine HCl 0.1 MG Oral Tablet 10/05/2020 - 11/05/19 Provider: Diagnosis: Last Documented On 1 3:16PM By Adele Sawyer [facility], [facility] Atorvastatin Calcium 20 MG O ral Tablet 10/05/2020 - 11/04/2020 Provider: MADI CHAPIN MD Diagnosis: Last Documented On 1 3:18PM By Adele Sawyer [facility], [facility] Medications Administered Includes: Administered Medications from this encounter No Administered Medications Recorded Vital Signs Includes: Vital Signs from this encounter Vital Name 06/16/2024 01:12P Height (in) 62 Weight (lb) 160 Body Mass Index 29.3 Body Surface Area 1.7 Note: ethel Last Documented: On 06/16/2024 1:12PM ; [facility], [facility] Results Includes: Results discussed during this [...] total hip replacement done in 2007 in [place]. She states she is having groin pain [...] 01/30/2024 Last Documented On 5 12:49PM ; [facility], [facility] Not a current smoker. 01/30/2024 Last Documented On 5 12:49PM ; [facility], [facility] Tobacco non-user 02/17/2022 Last Documented On 5 12:49PM ; [facility], [facility] Caffeine use 10/05/2020 Last Documented On 5 12:49PM ; [facility], [facility] Exercising regularly 10/05/2020 Last Documented On 5 12:49PM ; [facility], [facility] No recent change in diet 10/05/2020 Last Documented On 5 12:49PM ; [facility], [facility] Not a current smoker. 10/05/2020 Last Documented On 5 12:49PM ; [facility] Not using alcohol 10/05/2020 Last Documented On 5 12:49PM ; [facility] Not using drugs 10/05/2020 Last Documented On 5 12:49PM ; [facility], [facility] Non-smoker 10/05/2020 Last Documented On 5 12:49PM ; [facility], [facility] Not a current smoker 05/29/2018 Last Documented On 5 12:49PM ; [facility], [facility] No tobacco use 05/29/2018 Last Documented On 5 12:49PM ; [facility] Smoking status : Former smoker 9 Last Documented On 5 12:49PM ; [facility], [facility] Procedures and Surgical History Includes: Procedures from this encounter Procedures Code Diagnosis Performing Provider Service Location Service Date HIP BILATERAL 34927 Unilateral prima ry osteoarthritis, right hip, Trochanteric bursitis, left hip Jesus Espinosa MD [facility] 06/16/2024 Last Documented On 5 1:32PM ; [facility], [facility] use of tobacco assessment performed 1000F Last Documented On 5 12:49PM ; [facility], [facility] patient screened for future fall risk: documentation of any fall with injury in past year 1100F Last Documented On 5 12:49PM ; [facility] review of medications documented 1160F Last Documented On 5 12:49PM ; [facility] an X-ray was performed 11732 Last Documented On 5 12:49PM ; [facility] an MRI was performed 10546 Last Documented On 5 12:49PM ; [facility], [facility] Surgical History Last Updated History of History of Arthroscopy 2023 Last Documented On 5 12:48PM ; [facility] History of Previous Fractures 01/30/2024 Last Documented On 5 12:48PM ; [facility] History of total hip replacement 024 Last Documented On 5 12:48PM ; [facility] History of total knee arthroplasty 01/29 Last Documented On 5 12:48PM ; [facility] Past Surgical History: 03/16/2023 Last Documented On 5 12:48PM ; [facility] Medical History Includes: Medical History addressed during this encounter Description Last Updated History of asthma 01/30/2024 Last Documented On 5 12:48PM ; [facility] History of History of Blood Transfusion 01/30/2024 Last Documented On 5 12:48PM ; [facility] History of Hypertension 01/30/2024 Last Documented On 5 12:48PM ; [facility] of History of Blood Clots 2022 Last Documented On 5 12:48PM ; [facility] Anemia 10/05/2020 Last Documented On 5 12:48PM ; [facility] Arthritis 10/05/2020 Last Documented On 5 12:48PM ; [facility], [facility] Recent immunization for flu 10/05/2020 Last Documented On 5 12:48PM ; [facility], [facility] Recent immunization for pneumococcal pne umonia 10/05/2020 Last Documented On 5 12:48PM ; [facility], [facility] arthroscopy ~total joint replacement ~hi gh cholesterol 05/29/2018 Last Documented On 5 12:48PM ; [facility], [facility] Arthritic joint problems 05/29/2018 Last Documented On 5 12:48PM ; [facility], [facility] History of depression 05/29/2018 Last Documented On 5 12:48PM ; [facility], [facility] History of hepatitis C 05/29/2018 Last Documented On 5 12:48PM ; [facility], [facility] Family History Includes: Family History addressed during this encounter Description Last Updated Family history of cancer 10/05/2020 Last Documented On 5 12:48PM ; [facility], [facility] Family history of osteoporosis Last Documented On 5 12:48PM ; [facility], [facility] Family history of thromboembolic disease 05/29/2018 Last Documented On 5 12:48PM ; [facility], [facility] No significant family history maternal- Breast cancer 05/29/2018 Last Documented On 5 12:48PM ; [facility], [facility] Review of Systems Includes: Review of [...] tive Last Documented On 5 12:48PM ; [facility] Encounters Encounter Provider Location Date Check-In Time Check- Out Time Diagnosis Follow Up Jesus Espinosa MD [facility] 5 12:43PM 1:40PM Insurance Includes: Active Insurance Policies Plan Name Member ID Group # Subscriber Relationship Effect sherman Dates 1 - Medicare Part B [facility] [id number] Farrah Atkinson Self 4 - Unknown 2 - [employer] [id number] Farrah Atkinson Self 05/03/2019 - Unknown Clinical Notes Includes: Clinical Notes from this encounter * Progress note Date Encounter Last Documented by 06/16/2024 Follow Up Last documented on 06/16/2024; 1:41 PM, Jesus Espinosa MD; [facility] Active Problems & Conditions - [...] total hip replacement done in 2007 in [place]. She states she is having groin pain [...] directed 0 days, 0 refills - Nystatin-Triamcinolone 088465-3.1 UNIT/GM-% External Cream take as directed 0 [...] Care Team - Chandra Leahy MD - DAY LIGHT RELIEF OPERATOR
--- OUTSIDE RECORDS SUMMARY | 2025-01-25 00:38 | XMS_ITS | Encounter Summary ---
Author Organization [facility] Address [address], [address] [place] [address] Care Team Providers Care Washer Meat Name Role Phone Unavailable Primary Care Provider Unavailabl e Encounter Details Date Type Department Care Team (Latest Contact Info) Description 11/05/2024 Prep for Procedure [facility] [address] [place] [address] History of total replacement of left shoulder [...]
--- OUTSIDE RECORDS SUMMARY | 2025-01-25 00:38 | XMS_ITS | Encounter Summary ---
Author Organization [facility] Address [address], [address] [place] [address] Care Team Providers Care Social Work Associate Name Role Phone Unavailable Primary Care Provider Unavailabl e Reason for Visit * Reason Onset Date Comments Surgery Scheduling 11/20/2024 LT [facility] Encounter Details Date Type Department Care Team (Late st Contact Info) Description 11/20/2024 Telephone [facility] [address] [place] [id number] [place] [address] [place] [address] [address] [place] [address] Surgery Scheduling (LT [facility]) Social [...]
--- OUTSIDE RECORDS SUMMARY | 2025-01-25 00:38 | XMS_ITS | Clinical Summary ---
Author Organization [facility] Address [address] [place] [address] Phone Care Team Providers Care Deputy Sheriff/Investigator Name Role Phone Unavailable Primary Care Provider [...] Insurance MEDICARE [place] PART A AND B [employer]
[2025-01-25 00:40] LABS: Microscopic, Urine URINE MICROSCOPIC (MICROSCOPIC)
[2025-01-25 00:41] LABS: Bilirubin,Urine Negative (Negative); Color,Urine YELLOW (Yellow); Glucose,Urine (UA) Negative (Negative); Ketones,Urine Negative (Negative); Leukocyte Esterase,Urine Negative (Negative); PH,Urine 6.0 (5.0-8.5); Protein,Urine Negative (Negative); Specific Gravity, Urine 1.015 (1.005-1.030); Urobilinogen,Urine 0.2 EU/dl (0.2)
--- NOTE | 2025-01-25 00:41 | CT_ITS ---
PROCEDURE INFORMATION: Exam: CTA Abdomen and Pelvis With Contrast Exam date and time: 01/25/2025 1:42 AM Age: 74 years old Clinical indication: Other: Nausea, vomiting, hypertension; Abdominal pain; Generalized; Additional info: Severe central abd pain, HTN, n/v TECHNIQUE: Imaging protocol: Computed tomographic angiography of the abdomen and pelvis with contrast. Exam focused on the arteries. 3D rendering (Not supervised by radiologist): MIP and/or 3D reconstructed images were created by the technologist. Radiation optimization: All CT scans at this facility use at least one of these dose optimization techniques: automated exposure control; mA and/or kV adjustment per patient size (includes targeted exams where dose is matched to clinical indication); or iterative reconstruction. Contrast material: ISO 370; Contrast volume: 80 ml; Contrast route: INTRAVENOUS (IV); COMPARISON: CT ABDOMEN PELVIS W CON 08/01/2022 8:01 PM FINDINGS: Aorta: No aortic aneurysm. No aortic dissection. 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 The YOCASTA appears occluded. Renal arteries: No occlusion or significant stenosis. Right iliac arteries: No occlusion or significant stenosis. Left iliac arteries: No occlusion or significant stenosis. Liver: No mass. Gallbladder and biliary ducts: Unremarkable. No calcified stones. No ductal dilation. Pancreas: Unremarkable. No mass. No ductal dilation. Spleen: Unremarkable. No splenomegaly. Adrenal glands: Unremarkable. No mass. Kidneys and ureters: Unremarkable. No solid mass. No hydronephrosis. Stomach and bowel: Moderate stool in the distal bowel. Right lower quadrant ostomy. Appendix: No evidence of appendicitis. Intraperitoneal space: Unremarkable. No free air. No significant fluid collection. Lymph nodes: Unremarkable. No enlarged lymph nodes. Urinary bladder: Unremarkable. No mass. Reproductive: Unremarkable as visualized. Bones/joints: Degenerative disc disease with multilevel vacuum disc phenomena and disc space narrowing this is most prominent at L5-S1. Soft tissues: Unremarkable. IMPRESSION: 1. 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 The YOCASTA is not visualized. 2. Hobh-ae-lxpnmxcl stool burden. 3. Right lower quadrant ostomy. No ileus or obstruction.
[2025-01-25 00:50] LABS: Bacteria,Urine Trace /lpf
[2025-01-25] MEDS: HYDROMORPHONE 2MG/ML SYRINGE 1 MG IV (01:06)
[2025-01-25] MEDS: ONDANSETRON 4MG/2ML VIAL 4 MG IV (01:07)
[2025-01-25] MEDS: KETOROLAC 30MG/ML VIAL 30 MG IV (01:07)
[2025-01-25 01:17] LABS: Hematocrit 44.0 % (37.0-47.0); Hemoglobin 14.1 g/dL (12.2-16.2); Immature Granulocytes % 0.3 %; Mean Corpuscular HGB Conc 32.0 g/dL (31.8-35.4); Mean Corpuscular Hemoglobin 29.4 pg (27.0-31.2); Mean Corpuscular Volume 91.9 fl (81-99); Nucleated Red Blood Cells % 0 %; Platelet Count 446 K/mm3 (142-424); Red Blood Count 4.79 M/mm3 (4.20-5.40); Red Cell Distribution Width-SD 45.8 fL; White Blood Count 14.8 K/mm3 (4.8-10.8)
[2025-01-25] MEDS: AMLODIPINE 5MG TABLET 5 MG PO (01:20)
[2025-01-25 01:22] LABS: Alanine Aminotransferase 28 U/L (12-78); Albumin Level 4.4 g/dl (3.5-5.0); Albumin/Globulin Ratio 1.1 (1.1-1.8); Alkaline Phosphatase 173 U/L (38-126); Anion Gap 14.8 mEq/L (5-15); Aspartate Amino Transferase 37 U/L (14-36); Bilirubin,Total 0.5 mg/dl (0.2-1.3); Blood Urea Nitrogen 21 mg/dl (7-17); Calcium 9.7 mg/dl (8.4-10.2); Carbon Dioxide 26 mmol/L (22.0-30.0); Chloride 99 mmol/L (98-107); Creatinine Clearance Estimated 48 mL/min (50-200); Creatinine,Serum 1.20 mg/dl (0.52-1.04); Estimated Glomerular Filt Rate 44 ml/min (>60); GFR (African American) 53 ML/MIN (>60); Globulin 4.0 g/dL (1.3-3.2); Glucose 150 mg/dl (74-100); Lipase 54 U/L (23-300); Potassium 4.8 mmoL/L (3.5-5.1); Sodium 135 mmol/L (136-145); Total Protein,Serum 8.4 g/dl (6.3-8.2)
--- NOTE | 2025-01-25 02:03 | PC.NURSE ---
electrostatic powder coating technician called ED staff requesting someone to come look at pts IV d/t possible infiltration. This RN to CT to assess IV site to right upper arm. Proximal to IV site noted to be cold to touch, and swollen. Pt reports pain at the site. IV DC'd and Dr Barahona notified. Dr Barahona placed new 20G USGIV to left upper arm.
[2025-01-25] MEDS: 0.9 % SODIUM CHLORIDE 50 ML VIAL IV (02:13)
[2025-01-25] MEDS: IOPAMIDOL-370 (76%);100ML BOTTLE 160 ML IV (02:13)
[2025-01-25] MEDS: SODIUM CHLORIDE 0.9% 10ML SYR (RAD ONLY) 10 ML IV (02:13)
[2025-01-25] MEDS: HYDROMORPHONE 2MG/ML SYRINGE 0.5 MG IV (03:22)
== END 2025-01-25 03:32 | disposition home or self-care (01) ==
PROVIDERS: Emergency Provider Emergency Medicine; PCP Family Medicine
DX: R10.84 Generalized abdominal pain (principal); K59.00 Constipation, unspecified; R11.2 Nausea with vomiting, unspecified; I10 Essential (primary) hypertension; E78.5 Hyperlipidemia, unspecified; Z93.2 Ileostomy status; K86.81 Exocrine pancreatic insufficiency; Z79.891 Long term (current) use of opiate analgesic; Z87.19 Personal history of other diseases of the digestive system
CPT/HCPCS: 74174; 80053; 81001; 83690; 85025; 96374; 96375; 96376; 99285; J1171; J1885; J2405; Q9967

== ENCOUNTER 2025-01-25 13:38 | Inpatient (IN) | payer MEDICARE, SELFPAY ==
--- OUTSIDE RECORDS SUMMARY | 2025-01-19 10:00 | XMS_ITS | Encounter Summary ---
Author Organization Healthcare Address [address] [place] [address] Care Team Providers Care System Software Developer Name Role Phone Timothy Granda Primary Care Provider [phone] Reason for Referral * Consultation (Routine) - Authorized Specialty Diagnoses / Procedures Referred By Kendal quinones Referred To Contact Diagnoses Acute kidney injury Vitamin D deficiency Gutierrez Domínguez MD [address] [place] [address] Phone: tel: fax: Referral ID Status Reason Start Date Expiration Date V isits Requested Visits Authorized [id number] Authorized 01/19/2025 07/21/2026 1 1 Reason for Visit * Reason Comments Consult Encounter Details Date Type Department Care Team (Latest Contact Info) Description 01/19/2025 10:00 AM EDT Office Visit [facility] Nephrology, Bone & Mineral Metabolism [address], [address] [place] [address] Gutierrez Domínguez MD [address] [place] [phone] Acute kidney injury (Primary Dx); Vitamin [...] place to sleep or slept in a care home (including now)? 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 0 11/15/2023 CAGE Questionnaire Score 0 024 Utilities Answer Date Recorded In the past 12 months has th e [employer], gas, oil, or water company threatened to [...] Social Connections: Low Risk (04/12/2023) Received from [employer] ([place], [place], [place], [place]) Family and Community [...] Results Component Value Date TSH 1.72 07/22/2023 [id number] 78 (L) 09/01/2022 FREET4 1.5 07/22/2023 Imaging: [...] 2024 Electrolytes, acid/base, volume status wnl Urine: [place] Anatomy: normal appearing kidneys on CT abdomen [...] laboratory studies in the chart and at [facility] over the past several [...] months Gutierrez Domínguez MD Division of Nephrology [facility] Counseling Documentation: The patient was counseled regarding COUNSELING TOPICS: diagnostic results, prognosis, risks and benefit of treatment options, risk factor reductions, instructions for management, patient and family education, medication changes, diagnostic impressions, Heart healthy diet, regular physical activity and weight control, Avoidance of NSAIDs and other nephrotoxins, and usp nature of condition. Education provided was verbal [...] Expiration Date: 07/23/2026 [facility] Urinalysis with reflex microscopic (Culture NOT Included) Standing Status: Future Expected Date: 07/18/2025 Expiration Date: 07/23/2026 Release to patient in [facility]: Immediate Vitamin D 25 Hydroxy Standing Status: Future Expected Date: 07/18/2025 Expiration Date: 07/23/2026 Release to patient in [facility]: Immediate PTH Intact Total Standing Status: Future Expected Date: 07/18/2025 Expiration Date: 07/23/2026 [facility] Immediate Albumin-creatinine ratio, urine, random Standing Status: Future Expected Date: 07/18/2025 Expiration Date: 07/23/2026 [facility] Immediate Protein, Random, Urine with Creatinine Standing Status: Future Expected Date: 07/18/2025 Expiration Date: 07/23/2026 Release to patient in [facility]: Immediate Renal Function Panel, Plasma Standing Status: Future Expected Date: 07/18/2025 Expiration Date: 07/23/2026 Release to patient in [facility]: Immediate Cystatin C Standing Status: Future Expected Date: 07/21/2025 Expiration Date: 07/24/2026 [facility] Immediate [1] Follow Up Nephrology Standing [...] [1] Past Medical History: Diagnosis Date A-fib ([facility]) Abnormal findings on diagnostic imaging of other specified body structures Thickened endometrium TIP (acute kidney injury) ([facility]) 08/04/2022 Cr 1.38 on admission baseline .9 [...] disorders History of depression Protein calorie malnutrition ([facility]) 08/14/2022 Pt on TPN during previous admission, no evidence of continuing condition during this admission Sepsis, due to unspecified organism, unspecified whether acute organ dysfunction present ([facility]) 07/22/2023 Severe protein-calorie malnutrition ([facility]) 08/14/22 PICC and TPNEnteral tube feeds via [facility] Venous disease 08/04/2022 History of b/l venous iliac stents - on Eliquis [2] Patient Active Problem List Diagnosis Hx of Clostridium difficile infection Hypertension Hypothyroidism Paroxysmal atrial fibrillation ([facility]) Dysphagia Ileostomy in place ([facility]) Diverticulosis Intra-abdominal fluid collection Functional diarrhea Small [...] Social Connections: Low Risk (04/12/2023) Received from [employer] ([place], [place], [place], [place]) Family and Community [...] Results Component Value Date TSH 1.72 07/22/2023 [id number] 78 (L) 09/01/2022 FREET4 1.5 07/22/2023 Imaging: [...] 2024 Electrolytes, acid/base, volume status wnl Urine: [place] Anatomy: normal appearing kidneys on CT abdomen [...] laboratory studies in the chart and at [facility] over the past several [...] months Gutierrez Domínguez MD Division of Nephrology [facility] Counseling Documentation: The patient was counseled regarding COUNSELING TOPICS: diagnostic results, prognosis, risks and benefit of treatment options, risk factor reductions, instructions for management, patient and family education, medication changes, diagnostic impressions, Heart healthy diet, regular physical activity and weight control, Avoidance of NSAIDs and other nephrotoxins, and usp nature of condition. Education provided was verbal [...] Expiration Date: 07/23/2026 Release to patient in [facility]: Immediate Urinalysis with reflex microscopic (Culture NOT Included) Standing Status: Future Expected Date: 07/18/2025 Expiration Date: 07/23/2026 Release to patient in [facility]: Immediate Vitamin D 25 Hydroxy Standing Status: Future Expected Date: 07/18/2025 Expiration Date: 07/23/2026 Release to patient in [facility]: Immediate PTH Intact Total Standing Status: Future Expected Date: 07/18/2025 Expiration Date: 07/23/2026 Release to patient in [facility]: Immediate Albumin-creatinine ratio, urine, random Standing Status: Future Expected Date: 07/18/2025 Expiration Date: 07/23/2026 Release to patient in [facility]: Immediate Protein, Random, Urine with Creatinine Standing Status: Future Expected Date: 07/18/2025 Expiration Date: 07/23/2026 Release to patient in [facility]: Immediate Renal Function Panel, Plasma Standing Status: Future Expected Date: 07/18/2025 Expiration Date: 07/23/2026 Release to patient in [facility]: Immediate Cystatin C Standing Status: Future Expected Date: 07/21/2025 Expiration Date: 07/24/2026 Release to patient in [facility]: Immediate [1] Follow Up Nephrology Standing Status: [...] C CKD stage 3a, GFR 45-59 ml/min ([facility]) Relevant Medications atorvastatin (Lipitor) 40 MG tablet furosemide (Lasix) 40 MG tablet Other Relevant Orders Cystatin C Chronic kidney disease-mineral and bone disorder (CKD-MBD) Relevant Medications atorvastatin (Lipitor) 40 MG tablet furosemide (Lasix) 40 MG tablet Secondary hyperparathyroidism of renal origin ([facility]) Hyperlipidemia Relevant Medications atorvastatin (Lipitor) 40 MG [...] disorders History of depression Protein calorie malnutrition ([facility]) 08/14/2022 Pt on TPN during previous admission, [...] Acute kidney injury Hypothyroidism Paroxysmal atrial fibrillation ([facility]) Dysphagia Ileostomy in place ([facility]) Diverticulosis Intra-abdominal fluid collection Functional diarrhea Small bowel stricture Vitamin D deficiency CKD stage 3a, GFR 45-59 ml/min ([facility]) Chronic kidney disease-mineral and bone disorder (CKD-MBD) Secondary hyperparathyroidism of renal origin ([facility]) Hyperlipidemia [3] Past Surgical History: Procedure Laterality Date BREAST LUMPECTOMY Left Left Breast Lumpectomy from [facility] SECTION, LOW TRANSVERSE N/A Section from [facility] ILEOSTOMY N/A ILEOSTOMY 09/10/2023 Ex Lap, small bowel resection x 2, creation of end ilesotomy ILEOSTOMY CLOSURE 05/24/2023 open closure of end ileostomy with ileosigmoid anastomosis. TOTAL HIP ARTHROPLASTY N/A Total Hip Replacement from [facility] TOTAL SHOULDER ARTHROPLASTY N/A Shoulder Arthroplasty Total Shoulder Replacement from [facility] TUBAL LIGATION N/A Tubal Ligation from [facility] [4] Family History Problem Relation Name Age [...] Upcoming Encounters Date Type Department Care Team ([facility] st Contact Info) Description 07/20/2025 10:40 AM EDT Office Visit [facility] [employer] [place] Nephrology, Bone & Mineral Metabolism [address] [facility] [facility], [address] [place] [address] Gutierrez Domínguez MD [address] [place] [address] Scheduled Orders Name Type Priority Associated Diagnoses Orde r Schedule CBC W/O Differential Lab Routine Acute kidney injury ([facility]) Vitamin D deficiency Expected: 07/18/2025 (Approximate), Expires: [...] deficiency CKD stage 3a, GFR 45-59 ml/min ([facility]) Expected: 07/21/2025 (Approximate), Expires: 07/24/2026 Scheduled Referrals Name Type Priority Associated Diagnoses Order Schedule Follow Up Nephrology Outpatient Referral Routine Acute kidney injury ([facility]) Vitamin D deficiency Expected: 07/20/2025 (Approximate), Expires: 02/19/2026 documented as of this encounter Visit Diagnoses Diagnosis Acute kidney injury- Primary Vitamin D deficiency CKD stage 3a, GFR 45-59 ml/min ([facility]) Chronic kidney disease-mineral and bone disorder (CKD-MBD) Secondary hyperparathyroidism of renal origin ([facility]) Secondary hyperparathyroidism (of renal origin) Hypertension, unspecified type Hyperlipidemia, unspecified hyperlipidemia type documented in this encounter Additional Health Concerns Assessment Noted Time A fall risk assessment has been complete d for the patient 01/19/2025 10:00 AM EDT A Body Mass Index follow-up plan has been documented for the patient 01/20/2025 11:25 AM EDT documented as of this encounter Care Teams System Software Developer Relationship Specialty Start Date End Date Timothy Granda DO [address] [place] [address] PCP - General 05/25/23 documented as of this encounter
[2025-01-25] VITALS (65 sets, daily range): BP systolic 129–247; BP diastolic 72–159; PULSE 99–148; RESP 8–41; TEMP 36.6–36.8; O2SAT 88–100; BMI 28.3; BMI 31.2
--- NOTE | 2025-01-25 13:42 | CT_ITS ---
PROCEDURE INFORMATION: Exam: CT Abdomen And Pelvis With Contrast Exam date and time: 01/25/2025 3:17 PM Age: 74 years old Clinical indication: Pain; Additional info: Abd pain TECHNIQUE: Imaging protocol: Computed tomography of the abdomen and pelvis with contrast. 3D rendering (Not supervised by radiologist): MIP and/or 3D reconstructed images were created by the technologist. Radiation optimization: All CT scans at this facility use at least one of these dose optimization techniques: automated exposure control; mA and/or kV adjustment per patient size (includes targeted exams where dose is matched to clinical indication); or iterative reconstruction. Contrast material: ISOVUE; Contrast volume: 70 ml; Contrast route: IV; COMPARISON: CT PELVIS WO CON 01/25/2025 3:13 PM FINDINGS: Liver: Hepatic cyst measures 10 x 9 mm. Gallbladder and biliary ducts: Vicarious excretion of contrast in the gallbladder from yesterday's examination. Pancreas: Normal. No ductal dilation. Spleen: Normal. No splenomegaly. Adrenal glands: Normal. No mass. Kidneys and ureters: Normal. No hydronephrosis. Stomach and bowel: Right-sided ostomy noted. Moderate amount of stool within distal bowel to the ostomy. Appendix: No evidence of appendicitis. Intraperitoneal space: Unremarkable. No free air. No significant fluid collection. Vasculature: Celiac artery stenosis better visualized on previous CTA. Lymph nodes: Unremarkable. No enlarged lymph nodes. Urinary bladder: Residual contrast in the urinary bladder. Reproductive: Unremarkable as visualized. Bones/joints: Bilateral hip prostheses. Soft tissues: Unremarkable. IMPRESSION: Right-sided ostomy noted. Moderate amount of stool within distal bowel to the ostomy.
--- NOTE | 2025-01-25 13:42 | CT_ITS ---
PROCEDURE INFORMATION: Exam: CT Head Without Contrast Exam date and time: 01/25/2025 3:05 PM Age: 74 years old Clinical indication: Injury or trauma; Additional info: Fall AMS TECHNIQUE: Imaging protocol: Computed tomography of the head without contrast. Radiation optimization: All CT scans at this facility use at least one of these dose optimization techniques: automated exposure control; mA and/or kV adjustment per patient size (includes targeted exams where dose is matched to clinical indication); or iterative reconstruction. COMPARISON: CT HEAD/BRAIN WO CON 10/16/2024 3:02 PM FINDINGS: Brain: Residual contrast from earlier enhanced CT examination evident, limiting evaluation for small subarachnoid hemorrhage. No extra-axial hemorrhage. Cerebral ventricles: No ventriculomegaly. Paranasal sinuses: Visualized sinuses are unremarkable. No fluid levels. Mastoid air cells: Visualized mastoid air cells are well aerated. Bones: Unremarkable. No acute fracture. Soft tissues: Unremarkable. IMPRESSION: Residual contrast from earlier enhanced CT examination evident, limiting evaluation for small subarachnoid hemorrhage. If there is continued concern, recommend repeat examination in 24 hours.
--- NOTE | 2025-01-25 13:44 | ECG_ITS ---
APPROVED REPORT Exam: Resting ECG HR:119 bpm ECG Measurements Heart Rate 119 AXES MS 166 P 78 QRSd 79 QRS 68 QT 308 T 77 QTc 379 Conclusion SINUS TACHYCARDIA POSSIBLE RIGHT ATRIAL ENLARGEMENT [0.25mV P-WAVE] POSSIBLE LEFT ATRIAL ENLARGEMENT [-0.1mV P-WAVE IN V1/V2] ABNORMAL RHYTHM ECG UNCONFIRMED REPORT Electronically signed by : ZHANE WOLFE, 01/27/2025 06:32:25
--- OUTSIDE RECORDS SUMMARY | 2025-01-25 13:48 | XMS_ITS ---
Author Organization [facility] Address [address] [id number] Care Team Providers Care Reliner Name Role Phone Timothy Granda DO Primary Care Provider [phone] Hepatitis C Program Status:Paused (Paused) Start date:08/03/2022 Enrollment date:08/03/2022 Enrollment reason:HCV Continued Care and Services Coordination
--- OUTSIDE RECORDS SUMMARY | 2025-01-25 13:48 | XMS_ITS | Encounter Summary ---
Author Organization [facility] Address [address] [place] [id number] Care Team Providers Care Tow Boat Captain Name Role Phone GabrielTimothy armenta Primary Care Provider [phone] Reason for Visit * Reason Comments Med Refill Encounter Details Date Type Department Care Team (Late st Contact Info) Description 12/22/2021 Refill [facility] [address] [place] [address] Connor Nunez MD [address] [place] [address] Chronic arthritis associated with viral [...] documented as of this encounter Care Teams Tow Boat Captain Relationship Specialty Start Date End Date Timothy Granda DO [address] [place] [address] [place] [address] PCP - General Internal Medicine 06/12/23 documented as of this encounter
--- OUTSIDE RECORDS SUMMARY | 2025-01-25 13:48 | XMS_ITS | Encounter Summary ---
Author Organization Healthcare Address [address] [place] [address] Care Team Providers Care Farm Demonstrator Name Role Phone GabrielTimothy armenta Primary Care Provider [phone] Encounter Details Date Type Department Care Team (Late st Contact Info) Description 01/07/2025 Orders Only [facility] [address] [place] [phone] Shantal Solorio TIP (acute kidney injury) (Primary [...] place to sleep or slept in a intermediate (including now)? Patient refused 07/23/2023 CAGE ASSESSMENT [...] drink first t mini in the morning (EYE-CLASP MACHINE OPERATOR) to steady your nerves or to get rid of a hangover? 0 11/15/2023 CAGE Questionnaire Score 0 024 Utilities Answer Date Recorded In the past 12 months has th e [employer], gas, oil, or water company threatened to [...] Care Team (Late st Contact Info) Description 07/20/2025 10:40 AM EDT Office Visit [facility] Nephrology, Bone & Mineral Metabolism [address], [address] [place] [address] Gutierrez Domínguez MD [address] [place] [address] Scheduled Orders Name Type Priority Associated Diagnoses Orde r Schedule Renal Function Panel, Plasma Lab Routine TIP (acute kidney injury) ([facility]) Expected: 01/07/2025 (Approximate), Expires: 07/08/2026 CBC and Differential Lab Routine TIP (acute kidney injury) ([facility]) Expected: 01/07/2025 (Approximate), Expires: 07/08/2026 Creatinine, Random, Urine Lab Routine TIP (acute kidney injury) ([facility]) Expected: 01/07/2025 (Approximate), Expires: 07/08/2026 Protein, Random, Urine with Creatinine Lab Routine TIP (acute kidney injury) ([facility]) Expected: 01/07/2025 (Approximate), Expires: 07/08/2026 Urinalysis with reflex microscopic (Culture NOT Included) Lab Routine TIP (acute kidney injury) ([facility]) Expected: 01/07/2025 (Approximate), Expires: 07/08/2026 PTH Intact Total Lab Routine TIP (acute kidney injury) ([facility]) Vitamin D insufficiency Expected: 01/07/2025 (Approximate), Expires: 07/08/2026 Vitamin D 25 Hydroxy Lab Routine TIP (acute kidney injury) ([facility]) Vitamin D insufficiency Expected: 01/07/2025 (Approximate), Expires: [...] documented as of this encounter Care Teams Farm Demonstrator Relationship Specialty Start Date End Date Timothy Granda DO [address] [place] [address] PCP - General 05/25/23 documented as of this encounter
--- OUTSIDE RECORDS SUMMARY | 2025-01-25 13:48 | XMS_ITS ---
Care Plan - [facility] Created on: January 25, 2025 Demetrio Farrah J : 1950 Sex: Female Author Organization [facility] Address [address] [place] [address] Phone Care Team Providers Care Agricultural Economist Name Role Phone Tosin VARGAS, Chandra Flores Unavailable [phone] Chel VARGAS, Davidson Unavailable [phone] Timothy Granda Primary Care Provider Unavailabl e
--- OUTSIDE RECORDS SUMMARY | 2025-01-25 13:48 | XMS_ITS | Clinical Summary ---
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 Operator Name Role Phone Tosin VARGAS, Chandra Flores Unavailable [phone] Davidson Milligan MD Unavailable [phone] Timothy Granda Primary Care Provider Unavailabl e Reason for Visit and Chief Complaint The Chief Complaint is: Left shoulder pain Problems Includes: Problems addressed during this encounter and other active Problems Current Visit Onset Date Resolved Date Provider Conditio n Status Joint Pain Shoulder Left 03/16/2023 Funmi Robles PA-C Active Last Documented On 3 10:30AM ; [facility] [facility] Past Visits Onset Date Resolved Date Provider Condition Status Joint Pain Left Knee 03/31/2022 Jesus Espinosa MD Active Last Documented On 2 10:01AM ; [facility] Joint Pain Right Knee 02/12/2019 Timothy dye MD Active Last Documented On 9 10:35AM ; [facility] Joint Pain Hip Right 02/12/2019 Timothy Foster MD Active Last Documented On 9 10:35AM ; [facility] Joint Pain Shoulder 05/29/2018 Bautista christie MD Active Last Documented On 9 10:31AM ; [facility] Plan of Treatment Fall Risk [...] Documented On 03/16/2023 11:26AM ; [facility] she had progressive pain over the last [...] Documented On 03/16/2023 11:26AM ; [facility] Pending Tests Order Diagnosis Results Due Ordering P rovider Radiology - CT Scan Shoulder Overweight 03/30/23 Bari Robles PA-C Last Documented On 3 11:26AM ; [facility] Instructions to patient Lose weight Last Documented On 3 10:32AM ; [facility] [facility] Assessments Includes: Assessments from this encounter Findings - Overweight - Last Documented On 03/16/2023 11:26AM ; [facility] [place] left total shoulder - Last Documented On 03/16/2023 11:26AM ; [facility] Instructions Includes: Instructions from this encounter Instructions to patient Lose weight Last Documented On 3 10:32AM ; [facility] Medical Equipment - Implanted Devices Includes: Current Devices No Medical Equipment Recorded Medications Includes: Medications discussed during this encounter and other current Medications Current Medications (continue as prescribed) Acyclovir 400 MG Oral Tablet 01/27/2024 Provider: Diagnosis: Last Documented On 4 2:44PM By Karen [facility] oxyCODONE HCl 10 MG Oral Tablet 01/22/2024 Provider: Diagnosis: Last Documented On 4 2:44PM By Karen [facility]RI[facility] Dicyclomine HCl 10 MG Oral Capsule 01/22/2024 Provid er: CASTILLO ESPINO II, MD Diagnosis: Last Documented On 4 2:44PM By Karen Ornelas ; [facility] tiZANidine HCl 4 MG Oral Tablet 01/18/2024 Provider: Diagnosis: Last Documented On 4 2:44PM By Karen Ornelas ; [facility] Sulfamethoxazole-Trimethoprim 400-80 MG Oral Tablet Provider: Diagnosis: Last Documented On 4 2:44PM By Karen Ornelas ; [facility] DULoxetine HCl 60 MG Oral Capsule Delayed Releas e Particles 01/18/2024 Provider: Diagnosis: Last Documented On 4 2:44PM By Karen Ornelas ; [facility] HYDROmorphone HCl 4 MG Oral Tablet 01/08/2024 Provid er: Diagnosis: Last Documented On 4 2:44PM By Karen Ornelas ; [facility] Fluticasone-Salmeterol 100-5 0 MCG/ACT Inhalation Aerosol Powder Breath Activated 01/08/2024 Provider: Diagnosis: Last Documented On 4 2:44PM By Karen Ornelas ; [facility] [place] Atorvastatin Calcium 40 MG Oral Tablet 01/08/2024 Pr ovider: Diagnosis: Last Documented On 4 2:44PM By Karen Ornelas ; [facility] Levothyroxine Sodium 25 MCG Oral Tablet 12/31/2023 P dionicioder: Diagnosis: Last Documented On 4 2:44PM By Karen Ornelas ; [facility] Eliquis 5 MG Oral Tablet 12/31/2023 Provider: Diagnosis: Last Documented On 4 2:44PM By Karen Ornelas ; [facility] Atorvastatin Calcium 20 MG Oral Tablet 12/31/2023 Pr ovider: Diagnosis: Last Documented On 4 2:44PM By Karen Ornelas ; [facility] amLODIPine Besylate 5 MG Oral Tablet 12/10/2023 Prov ider: Diagnosis: Last Documented On 4 2:44PM By Karen Ornelas ; [facility] Albuterol Sulfate 108 (90 Ba se) MCG/ACT Inhalation Aerosol Powder Breath Activated 06/15/2022 Provider: Diagnosis: Last Documented On 3 8:21AM By Merari Parson ; [facility] Cymbalta 20 MG Oral Capsule Delayed Release Particles 06/15/2022 Provider: Diagnosis: Last Documented On 3 8:21AM By Merari Parson ; [facility] Estradiol 0.1 MG/GM Vaginal Cream 06/15/2022 Provide r: Diagnosis: Last Documented On 3 9:04AM By Merari Parson ; [facility] Retin-A 0.1% External Cream 06/15/2022 Provider: Diagnosis: Last Documented On 3 9:03AM By Merari Parson ; [facility] Nystatin-Triamcinolone 847127-4.1 UNIT/GM-% External C ream 06/15/2022 Provider: Diagnosis: Last Documented On 3 9:02AM By Merari Parson ; [facility] Triamcinolone Acetonide 0.1% External Cream 06/15/2022 Provider: Diagnosis: Last Documented On 3 8:29AM By Merari Parson ; [facility] oxyCODONE HCl 10 MG Oral Tablet 06/15/2022 Provider: Diagnosis: Last Documented On 3 8:27AM By Merari Parson ; [facility] Losartan Potassium 50 MG Oral Tablet 06/15/2022 Prov ider: Diagnosis: Last Documented On 3 8:26AM By Merari Parson ; [facility] Fluticasone-Salmeterol 250-5 0 MCG/ACT Inhalation Aerosol Powder Breath Activated 06/15/2022 Provider: Diagnosis: Last Documented On 3 8:25AM By Merari Parson ; [facility] Diphenoxylate-Atropine 2.5-0.025 MG Oral Tablet 2022 Provider: Diagnosis: Last Documented On 3 8:22AM By Merari Parson ; [facility] [place] Acyclovir 400 MG Oral Tablet 10/05/2020 Provider: Diagnosis: Last Documented On 1 3:19PM By Adele Trevino ; [facility] Past Medications on file oxyCODONE HCl 5 MG Oral Tablet 07/19/2022 - 07/29/2022 Provider: Jesus Zimmer MD Diagnosis: Take 1 tablet by mouth every 4-6 hrs for break through pain Last Documented On 3 11:00AM By Jesus Espinosa ; [facility] [facility] Meloxicam 15 MG Oral Tablet 07/03/2022 - 07/17/2022 Pr ovider: Jesus Espinosa MD Diagnosis: once a day Last Documented On 3 8:45AM By Barbara Correa ; [facility] Ondansetron HCl 4 MG Oral Tablet 06/30/2022 - 07/07/2022 Provider: Jesus Zimmer MD Diagnosis: 1 po q 6h prn nausea Last Documented On 3 1:35PM By Jesus Espinosa ; [facility] [place] oxyCODONE HCl 5 MG Oral Tablet 06/30/2022 - 07/10/2022 Provider: Jesus Zimmer MD Diagnosis: Take 1 tablet by mouth every 4-6 hrs for break through pain Last Documented On 3 1:35PM By Jesus Espinosa ; [facility] [place] Acetaminophen 500 MG Oral Tablet 06/30/2022 - 07/14/2022 Provider: Jesus Zimmer MD Diagnosis: Take 2 tablets by mouth every 8 hours Last Documented On 3 1:35PM By Jesus Espinosa ; [facility] [place] Cefadroxil 500 MG Oral Capsule 06/30/2022 - 07/07/2022 Provider: Jesus Zimmer MD Diagnosis: Take 1 tablet by mouth every 12 hours for 7 days Last Documented On 3 1:35PM By Jesus Espinosa ; [facility] [place] Aspirin EC 81 MG Oral Tablet Delayed Release 06/30/2022 - 08/11/2022 Provider: Jesus Espinosa MD Diagnosis: Take 1 tablet by mouth every 12 hours for 42 days post op Last Documented On 3 1:35PM By Jesus Espinosa ; [facility] [facility] Vitamin D3 50 MCG (1999 [place]) Oral Tablet 06/20/2022 - 07/20/2022 Provider: Diana ABDI Diagnosis: once a day Last Documented On 3 1:03PM By Diana Rosas ; [facility] cloNIDine HCl 0.1 MG Oral Tablet 10/05/2020 - 11/05/19 Provider: Diagnosis: Last Documented On 1 3:16PM By Adele Trevino ; [facility] [facility] Atorvastatin Calcium 20 MG O ral Tablet 10/05/2020 - 11/04/2020 Provider: [facility] MD Diagnosis: Last Documented On 1 3:18PM By Aedle Trevino ; [facility] Medications Administered Includes: Administered Medications from this encounter No Administered Medications Recorded Vital Signs Includes: Vital Signs from this encounter Vital Name 03/16/2023 10:32A Height (in) 61 Weight (lb) 145 Body Mass Index 27.4 Body Surface Area 1.6 Note: hdv Last Documented: On 03/16/2023 10:32A M ; [facility] Results Includes: Results discussed during this encounter [...] Documented On 3 11:26AM ; [facility] Tobacco non-user 02/17/2022 Last Documented On 3 10:32AM ; [facility] Caffeine use 10/05/2020 Last Documented On 3 10:32AM ; [facility] Exercising regularly 10/05/2020 Last Documented On 3 10:32AM ; [facility] No recent change in diet 10/05/2020 Last Documented On 3 10:32AM ; [facility] Not a current smoker. 10/05/2020 Last Documented On 3 10:32AM ; [facility] Not using alcohol 10/05/2020 Last Documented On 3 10:32AM ; [facility] Not using drugs 10/05/2020 Last Documented On 3 10:32AM ; [facility] Non-smoker 10/05/2020 Last Documented On 3 10:32AM ; [facility] [place] Not a current smoker 05/29/2018 Last Documented On 3 10:32AM ; [facility] No tobacco use 05/29/2018 Last Documented On 3 10:32AM ; [facility] [place] Smoking status : Former smoker 9 Last Documented On 3 10:32AM ; [facility] [place] Procedures and Surgical History Includes: Procedures from this encounter Procedures Code Diagnosis Performing Provider Service L ocation Service Date use of tobacco assessment performed 1000F Last Documented On 3 10:32AM ; [facility] [place] patient screened for future fall risk: documentation of any fall with injury in past year 1100F Last Documented On 3 10:32AM ; [facility] [place] review of medications documented 1160F Last Documented On 3 10:32AM ; [facility] [place] an X-ray was performed 62056 Last Documented On 3 10:33AM ; [facility] [place] an MRI was performed [id number] Last Documented On 3 10:33AM ; [facility] [place] Surgical History Last Updated Past Surgical History: 03/16/2023 Last Documented On 3 11:26AM ; [facility] [place] Medical History Includes: Medical History addressed during this encounter Description Last Updated History of Anemia 03/16/2023 Last Documented On 3 11:26AM ; [facility] History of arthritis 03/16/2023 Last Documented On 3 11:26AM ; [facility] [place] History of History of Blood Clots 2022 Last Documented On 3 11:26AM ; [facility] Anemia 10/05/2020 Last Documented On 3 10:32AM ; [facility] [facility] Arthritis 10/05/2020 Last Documented On 3 10:32AM ; [facility] [facility] History of Arthroscopy 10/05/2020 Last Documented On 3 10:32AM ; [facility] [facility] Recent immunization for flu 10/05/2020 Last Documented On 3 10:32AM ; [facility] [facility] Recent immunization for pneumococcal pne umonia 10/05/2020 Last Documented On 3 10:32AM ; [facility] [facility] Shoulder arthroplasty 10/05/2020 Last Documented On 3 10:32AM ; [facility] [facility] Total hip replacement 10/05/2020 Last Documented On 3 10:32AM ; [facility] [facility] Total knee arthroplasty 10/05/2020 Last Documented On 3 10:32AM ; [facility] arthroscopy ~total joint replacement ~hi gh cholesterol 05/29/2018 Last Documented On 3 10:32AM ; [facility] [facility] Arthritic joint problems 05/29/2018 Last Documented On 3 10:32AM ; [facility] History of depression 05/29/2018 Last Documented On 3 10:32AM ; [facility] History of hepatitis C 05/29/2018 Last Documented On 3 10:32AM ; [facility] [facility] Family History Includes: Family History addressed during this encounter Description Last Updated Family history of cancer 10/05/2020 Last Documented On 3 10:32AM ; [facility] Family history of osteoporosis 1 Last Documented On 3 10:32AM ; [facility] Family history of thromboembolic disease 05/29/2018 Last Documented On 3 10:32AM ; [facility] Review of Systems Includes: Review [...] Active Last Documented On 06/16/2024 12:48PM ; [facility] Note: joint pain- Major fluoroquinolones Allergy 09/04/2018 Ac tive Last Documented On 5 12:48PM ; [facility] Encounters Encounter Provider Location Date Check-In Time Check-Out Time Diagnosis Physician Specified Funmi Robles PA-C [facility] B 03/16/20 23 10:22AM 11:03AM Overweight Insurance Includes: Active Insurance Policies Plan Name Member ID Group # Subscriber Relationship Effect sherman Dates 1 - Medicare Part B [facility] [id number] Farrah Atkinson Self 4 - Unknown 2 - [facility] [id number] Farrah Atkinson Self 05/03/2019 - Unknown Clinical Notes Includes: Clinical Notes from this encounter * Progress note Date Encounter Last Documented by 03/16/2023 Physician Specified Last gilma farrell on 03/16/2023; 11:26 AM, Funmi Robles PA-C; [facility] [place] Active Problems & Conditions - Joint Pain [...] directed 0 days, 0 refills - Nystatin-Triamcinolone 895682-4.1 UNIT/GM-% External Cream take as directed 0 [...] Care Team - Chandra Leahy MD - ENERGY PROJECT MANAGER
--- OUTSIDE RECORDS SUMMARY | 2025-01-25 13:48 | XMS_ITS | Clinical Summary ---
Author Organization [facility] Address [address], [address] [place] [address] Care Team Providers Care Special Forces Medical Sergeant Name Role Phone Unavailable Primary Care Provider [...] (ZANAFLEX) 4 MG tablet 03/20/2024 Active CREON 78336-829982 units CPEP delayed release capsule TAKE ONE [...] Type Department Care Team Description 12/08/2024 Telephone [facility], [place] [address] Sharon Paulino MD Surgery Scheduling 11/21/2024 Telephone [facility]opedic [facility] [address] [address] Willa Lan RN Care Coordination (Nurse navigator) 11/20/2024 Telephone [facility] [address] [place] [phone] Sharon Paulino MD Surgery Scheduling ( [facility]) 11/05/2024 Prep for Procedure [facility] Orthopedic [facility] Sports [address] [place] [phone] Laisha Galvan MA History of total replacement [...] ID:Not on file Type:Not on file Address: [address]
--- OUTSIDE RECORDS SUMMARY | 2025-01-25 13:48 | XMS_ITS | Encounter Summary ---
Author Organization Healthcare Address [address] [place] [address] Care Team Providers Care Undercoater Name Role Phone Timothy Granda DO Primary Care Provider [phone] Sadia Campo CASUAL SHOE INSPECTOR Unavailable Unavailable Encounter Details Date Type Department Care Team (Late st Contact Info) Description 07/24/2023 Lab Requisition [facility] [address] [place] [address] Miky Coleman MD [address] [place] [address] Encounter for general adult medical [...] drink first t mini in the morning (EYE-ESCROW PROCESSOR) to steady your nerves or to get [...] 07/20/2025 10:40 AM EDT Office Visit [facility] Nephrology, Bone & Mineral Metabolism [address], [address] [place] [address] Gutierrez Domínguez MD [address] [place] [phone] documented as of this encounter Procedures [...] MICROBIOLOGY - GEN ERAL ORDERABLES Final Result [facility] [address] [place] [address] documented in this encounter Visit Diagnoses Diagnosis [...] documented as of this encounter Care Teams Undercoater Relationship Specialty Start Date End Date Timothy Granda DO [address] [place] [address] PCP - General 05/25/23 Sadia Campo, [place] [address] [employer] Superintendent Window Repairer 08/03/22 06/21/24 documented as of this encounter
--- OUTSIDE RECORDS SUMMARY | 2025-01-25 13:48 | XMS_ITS ---
Author Organization [facility] Address [address] [place] [address] Phone Care Team Providers Care Construction Operations Manager Name Role Phone Tosin VARGAS, Chandra Flores Unavailable [phone] Chel VARGAS, Davidson Unavailable [phone] Timothy Granda Primary Care Provider Unavailabl e [...] Active Last Documented On 3 10:30AM ; [facility] Joint Pain Left Knee 03/31/2022 Jesus giles MD Active Last Documented On 2 10:01AM ; [facility] Joint Pain Right Knee 02/12/2019 Timothy dye MD Active Last Documented On 9 10:35AM ; [facility] Joint Pain Hip Right 02/12/2019 Tiomthy Foster MD Active Last Documented On 9 10:35AM ; [facility] Joint Pain Shoulder 05/29/2018 Bautista christie MD Active Last Documented On 9 10:31AM ; [facility] Plan of Treatment Findings Encounter Date Patient screened for future fall risk: documentation of any fall with injury in past year Follow Up with Jesus Espinosa MD 06/16/2024 Last Documented On 5 1:41PM ; [facility] Patient screened for future fall risk: documentation of any fall with injury in past year Follow Up with Chandra Grewal PA-C 01/30/2024 Last Documented On 4 4:58PM ; [facility] Pending Tests Order Diagnosis Results Due Ordering P rovider Radiology - MRI MRI R Knee Derang of medial meniscus due to old tear/inj, right knee 05/27/19 Timothy Foster MD Last Documented On 0 12:04PM ; [facility] Radiology - CT Scan Shoulder Overweight 03/30/23 Bari Robles PA-C Last Documented On 3 11:26AM ; [facility] Referrals To Diagnosis Consult with Orthopedic Overweig ht Note: REFFERAL TO SHARON Orozco @ [facility] ) Last Documented On 4 4:58PM ; [facility] Consult with Orthopedic Overweig ht Note: Dr Sharon [facility] // cc Last Documented On 4 11:37AM ; [facility] Instructions to patient Lose weight Last Documented On 5 12:49PM ; [facility] Lose weight Last Documented On 5 12:50PM ; [facility] Lose weight Last Documented On 4 2:44PM ; [facility] Lose weight Last Documented On 4 2:05PM ; [facility] Lose weight Last Documented On 3 10:32AM ; [facility] Lose weight Last Documented On 3 8:11AM ; [facility] Lose weight Last Documented On 2 10:02AM ; [facility] Lose weight Last Documented On 2 8:00AM ; [facility] Instructions for patient see pcp for bp Last Documented On 0 1:11PM ; [facility] Instructions for patient see [...] Documented On 9 1:46PM ; [facility] Instructions for patient to see pcp for bp Last Documented On 9 2:20PM ; [facility] Instructions for patient see pcp for bp Last Documented On 9 2:29PM ; [facility] Instructions for patient see pcp for bp Last Documented On 9 1:12PM ; [facility] Medical Equipment - Implanted Devices Includes: Current and historical Devices No Medical Equipment Recorded Medications Includes: Current and historical Medications Current Medications (continue as prescribed) Acyclovir 400 MG Oral Tablet 01/27/2024 Provider: Diagnosis: Last Documented On 4 2:44PM By Karen Ornelas ; [facility] oxyCODONE HCl 10 MG Oral Tablet 01/22/2024 Provider: Diagnosis: Last Documented On 4 2:44PM By Karen Ornelas ; [facility] Dicyclomine HCl 10 MG Oral Capsule 01/22/2024 Provid er: CASTILLO ESPINO II, MD Diagnosis: Last Documented On 4 2:44PM By Karen Ornelas ; [facility] tiZANidine HCl 4 MG Oral Tablet 01/18/2024 Provider: Diagnosis: Last Documented On 4 2:44PM By Karen Ornelas ; [facility] Sulfamethoxazole-Trimethoprim 400-80 MG Oral Tablet Provider: Diagnosis: Last Documented On 4 2:44PM By Karen Ornelas ; [facility], [facility] DULoxetine HCl 60 MG Oral Capsule Delayed Releas e Particles 01/18/2024 Provider: Diagnosis: Last Documented On 4 2:44PM By Karen Ornelas ; [facility] HYDROmorphone HCl 4 MG Oral Tablet 01/08/2024 Provid er: Diagnosis: Last Documented On 4 2:44PM By Karen Ornelas ; [facility] Fluticasone-Salmeterol 100-5 0 MCG/ACT Inhalation Aerosol Powder Breath Activated 01/08/2024 Provider: Diagnosis: Last Documented On 4 2:44PM By Karen Ornelas ; [facility] Atorvastatin Calcium 40 MG Oral Tablet 01/08/2024 Pr ovider: Diagnosis: Last Documented On 4 2:44PM By Karen Ornelas ; [facility] Levothyroxine Sodium 25 MCG Oral Tablet 12/31/2023 P rovider: Diagnosis: Last Documented On 4 2:44PM By Karen Ornelas ; [facility] Eliquis 5 MG Oral Tablet 12/31/2023 Provider: Diagnosis: Last Documented On 4 2:44PM By Karen Ornelas ; [facility] Atorvastatin Calcium 20 MG Oral Tablet 12/31/2023 Pr ovider: Diagnosis: Last Documented On 4 2:44PM By Karen Ornelas ; [facility] amLODIPine Besylate 5 MG Oral Tablet 12/10/2023 Prov ider: Diagnosis: Last Documented On 4 2:44PM By Karen Ornelas ; [facility] Albuterol Sulfate 108 (90 Ba se) MCG/ACT Inhalation Aerosol Powder Breath Activated 06/15/2022 Provider: Diagnosis: Last Documented On 3 8:21AM By Merari Parson ; [facility] Cymbalta 20 MG Oral Capsule Delayed Release Particles 06/15/2022 Provider: Diagnosis: Last Documented On 3 8:21AM By Merari Parson ; [facility] Estradiol 0.1 MG/GM Vaginal Cream 06/15/2022 Provide r: Diagnosis: Last Documented On 3 9:04AM By Merari Parson ; [facility] Retin-A 0.1% External Cream 06/15/2022 Provider: Diagnosis: Last Documented On 3 9:03AM By Merari Parson ; [facility] Nystatin-Triamcinolone 853311-3.1 UNIT/GM-% External C ream 06/15/2022 Provider: Diagnosis: Last Documented On 3 9:02AM By Merari Parson ; [facility] Triamcinolone Acetonide 0.1% External Cream 06/15/2022 Provider: Diagnosis: Last Documented On 3 8:29AM By Merari Parson ; [facility] oxyCODONE HCl 10 MG Oral Tablet 06/15/2022 Provider: Diagnosis: Last Documented On 3 8:27AM By Merari Parson ; [facility] Losartan Potassium 50 MG Oral Tablet 06/15/2022 Prov ider: Diagnosis: Last Documented On 3 8:26AM By Merari Parson ; [facility] Fluticasone-Salmeterol 250-5 0 MCG/ACT Inhalation Aerosol Powder Breath Activated 06/15/2022 Provider: Diagnosis: Last Documented On 3 8:25AM By Merari Parson ; [facility] Diphenoxylate-Atropine 2.5-0.025 MG Oral Tablet 2022 Provider: Diagnosis: Last Documented On 3 8:22AM By Merari Parson ; [facility] Acyclovir 400 MG Oral Tablet 10/05/2020 Provider: Diagnosis: Last Documented On 1 3:19PM By Adele Trevino ; [facility] Past Medications on file Acyclovir 400 MG Oral Tablet 03/12/2023 - 01/30/2024 Richardson greenbergder: Chandra Leahy MD Diagnosis: Last Documented On 4 2:43PM By Karen Ornelas ; [facility] Eliquis 5 MG Oral Tablet 03/12/2023 - 01/30/2024 Provi kiera: Chandra Leahy MD Diagnosis: Last Documented On 4 2:43PM By Karen Ornelas ; [facility] Diphenoxylate-Atropine 2.5-0.025 MG Oral Tablet 03/09/2023 - 01/30/2024 Provider: Diagnosis: Last Documented On 4 2:43PM By Karen Ornelas ; [facility] OxyCONTIN 20 MG Oral Tablet ER 12 Hour Abuse-Deterrent 03/09/2023 - 01/30/2024 Provider: Diagnosis: Last Documented On 4 2:43PM By Karen Ornelas ; [facility] Sulfamethoxazole-Trimethopri m 400-80 MG Oral Tablet 03/09/2023 - 01/30/2024 Provider: Diagnosis: Last Documented On 4 2:43PM By Karen Ornelas ; [facility] Potassium Chloride Amy ER 2 0 MEQ Oral Tablet Extended Release 03/01/2023 - 01/30/2024 Provider: MADI CHAPIN MD Diagnosis: Last Documented On 4 2:43PM By Karen Ornelas ; [facility] Levothyroxine Sodium 25 MCG Oral Tablet 03/01/2023 - 01/30/2024 Provider: Chandra Leahy MD Diagnosis: Last Documented On 4 2:43PM By Karen Ornelas ; [facility] amLODIPine Besylate 5 MG Oral Tablet 02/28/2023 - 01/02 Provider: Diagnosis: Last Documented On 4 2:43PM By Karen Ornelas ; [facility] Cephalexin 500 MG Oral Capsule 02/26/2023 - 01/30/2024 Provider: Diagnosis: Last Documented On 4 2:43PM By Karen Ornelas ; [facility] oxyCODONE HCl 10 MG Oral Tablet 02/23/2023 - Provider: Chandra Leahy MD Diagnosis: Last Documented On 4 2:43PM By Karen Ornelas ; [facility] oxyCODONE HCl 5 MG Oral Tablet 07/19/2022 - 07/29/2022 Provider: Jesus Zimmer MD Diagnosis: Take 1 tablet by mouth every 4-6 hrs for break through pain Last Documented On 3 11:00AM By Jesus Espinosa ; [facility] Meloxicam 15 MG Oral Tablet 07/03/2022 - 07/17/2022 Pr ovider: Jesus Espinosa MD Diagnosis: once a day Last Documented On 3 8:45AM By Barbara Correa ; [facility] Ondansetron HCl 4 MG Oral Tablet 06/30/2022 - 07/07/2022 Provider: Jesus Zimmer MD Diagnosis: 1 po q 6h prn nausea Last Documented On 3 1:35PM By Jesus Espinosa ; [facility] oxyCODONE HCl 5 MG Oral Tablet 06/30/2022 - 07/10/2022 Provider: Jesus Zimmer MD Diagnosis: Take 1 tablet by mouth every 4-6 hrs for break through pain Last Documented On 3 1:35PM By Jesus Espinosa ; [facility] Acetaminophen 500 MG Oral Tablet 06/30/2022 - 07/14/2022 Provider: Jesus Zimmer MD Diagnosis: Take 2 tablets by mouth every 8 hours Last Documented On 3 1:35PM By Jesus Espinosa ; [facility] Cefadroxil 500 MG Oral Capsule 06/30/2022 - 07/07/2022 Provider: Jesus Zimmer MD Diagnosis: Take 1 tablet by mouth every 12 hours for 7 days Last Documented On 3 1:35PM By Jesus Espinosa ; [facility] Aspirin EC 81 MG Oral Tablet Delayed Release 06/30/2022 - 08/11/2022 Provider: Jesus Espinosa MD Diagnosis: Take 1 tablet by mouth every 12 hours for 42 days post op Last Documented On 3 1:35PM By Jesus Espinosa ; [facility] Vitamin D3 50 MCG (1999 [place]) Oral Tablet 06/20/2022 - 07/20/2022 Provider: Diana ABDI Diagnosis: once a day Last Documented On 3 1:03PM By Diana Rosas ; [facility] EC-RX Estradiol 0.4% Transdermal Cream 06/15/2022 - Provider: Diagnosis: Last Documented On 3 9:04AM By Merari Parson ; [facility] Retin-A 0.025% External Cream 06/15/2022 - 06/15/2022 Provider: Diagnosis: Last Documented On 3 9:03AM By Merari Parson ; [facility] Nystatin [id number] UNIT/GM External Cream 06/15/2022 - Provider: Diagnosis: Last Documented On 3 9:03AM By Merari Parson ; [facility] amLODIPine Besylate 10 MG Or al Tablet 02/10/2022 - 01/30/2024 Provider: MADI CHAPIN MD Diagnosis: Last Documented On 4 2:44PM By Karen Ornelas ; [facility] Atorvastatin Calcium 20 MG O ral Tablet 01/30/2022 - 01/30/2024 Provider: MADI CHAPIN MD Diagnosis: Last Documented On 4 2:44PM By Karen Ornelas ; [facility] cloNIDine HCl 0.1 MG Oral Tablet 01/10/2022 - 01/30/20 24 Provider: Diagnosis: Last Documented On 4 2:44PM By Karen Ornelas ; [facility] Potassium Chloride Amy ER 2 0 MEQ Oral Tablet Extended Release 11/28/2021 - 01/30/2024 Provider: MADI CHAPIN MD Diagnosis: Last Documented On 4 2:44PM By Karen Ornelas ; [facility] cloNIDine HCl 0.1 MG Oral Tablet 10/05/2020 - 11/05/19 21 Provider: Diagnosis: Last Documented On 1 3:16PM By Adele Trevino ; [facility] Fetzima 40mg Oral Tablet 10/05/2020 - 06/15/2022 Provi kiera: Diagnosis: Last Documented On 3 8:29AM By Merari Parson ; [facility] cloNIDine HCl 0.1 MG Oral Tablet 10/05/2020 - 10/06/19 21 Provider: Diagnosis: Last Documented On 1 3:16PM By Adele Trevino ; [facility] Acyclovir 400 MG Oral Tablet 10/05/2020 - 10/05/2020 P rovider: Diagnosis: Last Documented On 1 3:19PM By Adele Trevino ; [facility] Vicodin HP 10-300 MG Oral Tablet 10/05/2020 - 06/16/19 23 Provider: Diagnosis: Last Documented On 3 8:30AM By Merari Parson ; [facility] Atorvastatin Calcium 20 MG Oral Tablet 10/05/2020 - Provider: Diagnosis: Last Documented On 1 3:18PM By Adele Trevino ; [facility] Atorvastatin Calcium 20 MG O ral Tablet 10/05/2020 - 11/04/2020 Provider: MADI CHAPIN MD Diagnosis: Last Documented On 1 3:18PM By Adele Trevino ; [facility] Percocet 7.5-325 MG Oral Tablet 10/07/2019 - Provider: Timothy Foster MD Diagnosis: 1 every 4 - 6 hours prn post op pain Last Documented On 1 3:16PM By Adele Trevino ; [facility] Zofran 4 MG Oral Tablet 09/24/2019 - 10/05/2020 Provid er: Timothy Foster MD Diagnosis: 1 tab every 6 hrs prn pain Last Documented On 1 3:17PM By Adele Trevino ; [facility] Keflex 250 MG Oral Capsule 09/24/2019 - 10/05/2020 Pro vider: Timothy Foster MD Diagnosis: four times a day Last Documented On 1 3:17PM By Adele Trevino ; [facility] Aspirin 325 MG Oral Tablet 09/24/2019 - 10/05/2020 Pro vider: Timothy Foster MD Diagnosis: twice a day Last Documented On 1 3:16PM By Adele Trevino ; [facility] Xarelto 10 MG Oral Tablet 09/24/2019 - 10/05/2020 Prov ider: Timothy Foster MD Diagnosis: once a day for first seven d ays after joint replacement, then transiition to aspirin Last Documented On 1 3:17PM By Adele Trevino ; [facility] Percocet 7.5-325 MG Oral Tablet 09/24/2019 - Provider: Timothy Foster MD Diagnosis: 1 every 4 - 6 hours prn post op pain Last Documented On 3:16PM By Adelemaribel Trevino ; [facility] Mupirocin 2% External Ointment 07/31/2019 - 10/05/2020 Provider: Timothy Foster MD Diagnosis: take as directed Apply cream twice a day to each nostril five days prior to surgery. Last Documented On 3:17PM By Adele Belinda ; [facility] Caldwell 10-325 MG Oral Tablet 04/25/2019 - 10/05/2020 Pr ovider: Timothy Foster MD Diagnosis: [id number] prn post op pain Last Documented On 3:17PM By Adelejudy Trevino ; [facility] Nystatin [id number] UNIT/GM Exte rnal Cream 01/20/2019 - 10/05/2020 Provider: MADI CHAPIN MD Diagnosis: Last Documented On 3:18PM By Adeleamribel Trevino ; [facility] Clindamycin-Tretinoin 1.2-0. 025% External Gel 01/20/2019 - 10/05/2020 Provider: MADI CHAPIN MD Diagnosis: Last Documented On 3:19PM By Adelemaribel Trevino ; [facility] Estradiol 0.025 MG/24HR Saba sdermal Patch Twice Weekly 01/17/2019 - 10/05/2020 Provider: Diagnosis: Last Documented On 3:19PM By Adele Belinda ; [facility] Lisinopril 5MG Oral Tablet 08/12/2018 - 10/05/2020 Pro vider: MADI CHAPIN MD Diagnosis: Last Documented On 3:18PM By [facility] ; [facility] oxyCODONE HCl 5MG Oral Tablet 07/22/2018 - 10/05/2020 Provider: Bautista christie MD Diagnosis: 1-2 po q 4-6h prn post op pain Last Documented On 07/06/202 1 3:17PM By Adele Trevino ; [facility] oxyCODONE HCl 5MG Oral Tablet 07/17/2018 - 10/05/2020 Provider: Bautista christie MD Diagnosis: 1-2 po q 4-6h prn post op pain Last Documented On 1 3:17PM By Adele Trevino ; [facility] Zofran 4MG Oral Tablet 07/17/2018 - 10/05/2020 Provide r: Bautista Luis MD Diagnosis: Take 1 tablet every 8 hrs pr n pain Take 1 tablet every 8 hrs prn post op nausea Last Documented On 1 3:17PM By Adelemaribel Trevino ; [facility] Benzoyl Peroxide Wash 5% External Liquid 07/17/2018 - 10/05/2020 Provider: Bautista christie MD Diagnosis: use as directed by Dr. Luis Last Documented On 1 3:17PM By Adele Trevino ; [facility] Acyclovir 400MG Oral Tablet 05/29/2018 - 10/05/2020 Pr ovider: Diagnosis: Last Documented On 1 3:19PM By Adele Trevino ; [facility] Estradiol 1MG Oral Tablet 05/29/2018 - 10/05/2020 Prov ider: Diagnosis: Last Documented On 1 3:18PM By Adele Trevino ; [facility] Lomotil 2.5-0.025MG Oral Tablet 05/29/2018 - Provider: Diagnosis: Last Documented On 1 3:17PM By Adele Trevino ; [facility] Atorvastatin Calcium 20MG Or al Tablet 05/14/2018 - 10/05/2020 Provider: MADI CHAPIN MD Diagnosis: Last Documented On 1 3:18PM By Adele Trevino ; [facility] Nortriptyline HCl 50MG Oral Capsule 05/03/2018 - 10/05 Provider: Diagnosis: Last Documented On 1 3:16PM By Adele Trevino ; [facility] cloNIDine HCl 0.1MG Oral Tablet 05/03/2018 - [...] 3:16PM By Adele Trevino ; [facility] Medications Administered Includes: Administered Medications [...] 10/05/2020 Last Documented On 1 1:17PM ; [facility] No recent change in diet 10/05/2020 Last Documented On 1 1:17PM ; [facility] Not a current smoker. 10/05/2020 Last Documented On 1 1:17PM ; [facility] Not using alcohol 10/05/2020 Last Documented On 1 1:17PM ; [facility] Not using drugs 10/05/2020 Last Documented On 1 1:17PM ; [facility] Non-smoker 10/05/2020 Last Documented On 1 1:17PM ; [facility] Not a current smoker 05/29/2018 Last Documented On 9 9:38AM ; [facility] No tobacco use 05/29/2018 Last Documented On 9 9:38AM ; [facility] Smoking status : Former smoker 9 Last Documented On 9 9:38AM ; [facility] Procedures and Surgical History Includes: Procedures from 01/26/2024 through 01/25/2025 Procedures Code Diagnosis Performing Provider Service Location Service Date HIP BILATERAL [address] Unilateral prima ry osteoarthritis, right hip, Trochanteric bursitis, left hip Jesus Espinosa MD [facility] 06/16/2024 Last Documented On 5 1:32PM ; [facility] X-RAY EXAM OF SHOULDER 2-3 VIEWS (LEFT) 63840 Pain in left shoulder, Presence of left artificial shoulder joint Chanrda Grewal PA-C [facility] 01/30/2024 Last Documented On 4 10:59AM ; [facility] Surgical History Last Updated History of History of Arthroscopy 2023 Last Documented On 4 4:58PM ; [facility] History of Previous Fractures 01/30/2024 Last Documented On 4 4:58PM ; [facility] History of total hip replacement 024 Last Documented On 4 4:58PM ; [facility], [facility] History of total knee arthroplasty 01/29 Last Documented On 4 4:58PM ; [facility], [facility] Past Surgical History: 03/16/2023 Last Documented On 3 11:26AM ; [facility] Medical History Includes: Medical History in patient's chart Description Last Updated History of asthma 01/30/2024 Last Documented On 4 4:58PM ; [facility] History of History of Blood Transfusion 01/30/2024 Last Documented On 4 4:58PM ; [facility] History of Hypertension 01/30/2024 Last Documented On 4 4:58PM ; [facility] History of Anemia 03/16/2023 Last Documented On 3 11:26AM ; [facility] History of arthritis 03/16/2023 Last Documented On 3 11:26AM ; [facility], [facility] History of History of Blood Clots 2022 Last Documented On 3 11:26AM ; [facility] Anemia 10/05/2020 Last Documented On 1 1:17PM ; [facility] Arthritis 10/05/2020 Last Documented On 1 1:17PM ; [facility] History of Arthroscopy 10/05/2020 Last Documented On 1 1:17PM ; [facility] Recent immunization for flu 10/05/2020 Last Documented On 1 1:17PM ; [facility] Recent immunization for pneumococcal pne umonia 10/05/2020 Last Documented On 1 1:17PM ; [facility] Shoulder arthroplasty 10/05/2020 Last Documented On 1 1:17PM ; [facility] Total hip replacement 10/05/2020 Last Documented On 1 1:17PM ; [facility] Total knee arthroplasty 10/05/2020 Last Documented On 1 1:17PM ; [facility] arthroscopy ~total joint replacement ~hi gh cholesterol 05/29/2018 Last Documented On 9 9:38AM ; [facility] Arthritic joint problems 05/29/2018 Last Documented On 9 9:38AM ; [facility] History of depression 05/29/2018 Last Documented On 9 9:38AM ; [facility] History of hepatitis C 05/29/2018 Last Documented On 9 9:38AM ; [facility] Family History Includes: Family History in patient's chart Description Last Updated Family history of cancer 10/05/2020 Last Documented On 1 1:17PM ; [facility] Family history of osteoporosis 1 Last Documented On 1 1:17PM ; [facility] Family history of thromboembolic disease 05/29/2018 Last Documented On 9 9:38AM ; [facility] No significant family history maternal- Breast cancer 05/29/2018 Last Documented On 9 9:38AM ; [facility] Review of Systems Review of Systems not [...] Active Last Documented On 06/16/2024 12:48PM ; [facility] Note: joint pain- Major fluoroquinolones Allergy 09/04/2018 Ac tive Last Documented On 5 12:48PM ; [facility] Encounters Includes: Encounters from 01/26/2024 through 01/25/2025 Encounter Provider Location Date Check-In Time Check-Out Time Diagnosis Follow Up Jesus Espinosa MD [facility] 06/17/19 25 12:43PM 1:40PM Follow Up Chandra Grewal PA-C [facility] B 01/30/20 24 2:50PM 3:29PM Overweight Insurance Includes: Active Insurance Policies Plan Name Member ID Group # Subscriber Relationship Effect sherman Dates 1 - Medicare Part B [facility] [id number] Farrah Atkinson Self 4 - Unknown 2 - [facility] [id number] Farrah Atkinson Self 05/03/2019 - Unknown Clinical Notes Includes: Signed Clinical Notes starting from 03/16/2022 * Progress note Date Encounter Last Documented by 06/16/2024 Follow Up Last documented on 06/16/2024; 1:41 PM, Jesus Espinosa MD; [facility], [facility] Active Problems & Conditions - [...] total hip replacement done in 2007 in [place]. She states she is having groin pain [...] directed 0 days, 0 refills - Nystatin-Triamcinolone 435516-0.1 UNIT/GM-% External Cream take as directed 0 [...] Care Team - Chandra Leahy MD - BRUSHER WARP * Progress note Date Encounter Last Documented by 01/30/2024 Follow Up Last documented on 01/30/2024; 4:58 PM, Chandra Grewal PA-C; [facility], [facility] Active Problems & Conditions - [...] will refer her to Dr. Mixon in [place] for further evaluation and treatment. Current Medication [...] directed 0 days, 0 refills - Nystatin-Triamcinolone 128957-8.1 UNIT/GM-% External Cream take as directed 0 [...] Orthopedic Instructions: REFFERAL TO SHARON MIXON @ [facility] ) Referral/Orthopedic: Consult with Orthopedic Instructions: Dr [...] Care Team - Chandra Leahy MD - BRUSHER WARP
--- OUTSIDE RECORDS SUMMARY | 2025-01-25 13:48 | XMS_ITS | Clinical Summary ---
Author Organization [facility] , [facility] Address [address] [place] [address] Phone Care Team Providers Care Curam Developer Name Role Phone Tosin VARGAS, Chandra Flores Unavailable [phone] Chel VARGAS, Davidson Unavailable [phone] Timothy Granda Primary Care Provider Unavailabl e Reason for Visit and Chief Complaint INJECTION Problems Includes: Problems addressed during this encounter and other active Problems All Visits Onset Date Resolved Date Provider Condition S tatus Joint Pain Shoulder Left 03/16/2023 Funmi Robles PA-C Active Last Documented On 3 10:30AM ; [facility], [facility] Joint Pain Left Knee 03/31/2022 Jesus giles MD Active Last Documented On 2 10:01AM ; [facility], [facility] Joint Pain Right Knee 02/12/2019 Timothy dye MD Active Last Documented On 9 10:35AM ; [facility], [facility] Joint Pain Hip Right 02/12/2019 Timothy Foster MD Active Last Documented On 9 10:35AM ; [facility], [facility] Joint Pain Shoulder 05/29/2018 Bautista christie MD Active Last Documented On 9 10:31AM ; [facility], [facility] Plan of Treatment No Plan of [...] ; [facility] oxyCODONE HCl 10 MG Oral Tablet 01/22/2024 Provider: Diagnosis: Last Documented On 4 2:44PM By Karen Ornelas ; [facility] Dicyclomine HCl 10 MG Oral Capsule 01/22/2024 Provid er: CASTILLO ESPINO II, MD Diagnosis: Last Documented On 4 2:44PM By Karen Ornelas ; [facility] tiZANidine HCl 4 MG Oral Tablet 01/18/2024 Provider: Diagnosis: Last Documented On 4 2:44PM By Karen Ornelas ; [facility] Sulfamethoxazole-Trimethoprim 400-80 MG Oral Tablet Provider: Diagnosis: Last Documented On 4 2:44PM By Karen Ornelas ; [facility] DULoxetine HCl 60 MG Oral Capsule Delayed Releas e Particles 01/18/2024 Provider: Diagnosis: Last Documented On 4 2:44PM By Karen Ornelas ; [facility] HYDROmorphone HCl 4 MG Oral Tablet 01/08/2024 Provid er: Diagnosis: Last Documented On 4 2:44PM By Karen Ornelas ; [facility] Fluticasone-Salmeterol 100-5 0 MCG/ACT Inhalation Aerosol Powder Breath Activated 01/08/2024 Provider: Diagnosis: Last Documented On 4 2:44PM By Karen Ornelas ; [facility] Atorvastatin Calcium 40 MG Oral Tablet 01/08/2024 Pr ovider: Diagnosis: Last Documented On 4 2:44PM By Karen Ornelas ; [facility] Levothyroxine Sodium 25 MCG Oral Tablet 12/31/2023 P rovider: Diagnosis: Last Documented On 4 2:44PM By Karen Ornelas ; [facility] Eliquis 5 MG Oral Tablet 12/31/2023 Provider: Diagnosis: Last Documented On 4 2:44PM By Karen Ornelas ; [facility], [facility] Atorvastatin Calcium 20 MG Oral Tablet 12/31/2023 Pr ovider: Diagnosis: Last Documented On 4 2:44PM By Karen Ornelas ; [facility] amLODIPine Besylate 5 MG Oral Tablet 12/10/2023 Prov ider: Diagnosis: Last Documented On 4 2:44PM By Karen Ornelas ; [facility], [facility] Albuterol Sulfate 108 (90 Ba se) MCG/ACT Inhalation Aerosol Powder Breath Activated 06/15/2022 Provider: Diagnosis: Last Documented On 3 8:21AM By Merari Parson ; [facility], [facility] Cymbalta 20 MG Oral Capsule Delayed Release Particles 06/15/2022 Provider: Diagnosis: Last Documented On 3 8:21AM By Merari Parson ; [facility], [facility] Estradiol 0.1 MG/GM Vaginal Cream 06/15/2022 Provide r: Diagnosis: Last Documented On 3 9:04AM By Merari Parson ; [facility], [facility] Retin-A 0.1% External Cream 06/15/2022 Provider: Diagnosis: Last Documented On 3 9:03AM By Merari Parson ; [facility], [facility] Nystatin-Triamcinolone 617514-8.1 UNIT/GM-% External C ream 06/15/2022 Provider: Diagnosis: Last Documented On 3 9:02AM By Merari Parson ; [facility], [facility] Triamcinolone Acetonide 0.1% External Cream 06/15/2022 Provider: Diagnosis: Last Documented On 3 8:29AM By Merari Parson ; [facility] oxyCODONE HCl 10 MG Oral Tablet 06/15/2022 Provider: Diagnosis: Last Documented On 3 8:27AM By Merari Parson ; [facility], [facility] Losartan Potassium 50 MG Oral Tablet 06/15/2022 Prov ider: Diagnosis: Last Documented On 3 8:26AM By Merari Parson ; [facility] Fluticasone-Salmeterol 250-5 0 MCG/ACT Inhalation Aerosol Powder Breath Activated 06/15/2022 Provider: Diagnosis: Last Documented On 3 8:25AM By Merari Parson ; [facility] Diphenoxylate-Atropine 2.5-0.025 MG Oral Tablet 2022 Provider: Diagnosis: Last Documented On 3 8:22AM By Merari Parson ; [facility] Acyclovir 400 MG Oral Tablet 10/05/2020 Provider: Diagnosis: Last Documented On 1 3:19PM By Adele Sawyer [facility] Medications Administered Includes: Administered Medications [...] Active Last Documented On 06/16/2024 12:48PM ; [facility] Note: joint pain- Major fluoroquinolones Allergy 09/04/2018 Ac tive Last Documented On 5 12:48PM ; [facility] Encounters Encounter Provider Location Date Check-In Time Check-Out Time Diagnosis INJECTION Fab Li PA-C [facility] 04/12/19 24 2:28PM 2:56PM Insurance Includes: Active Insurance Policies Plan Name Member ID Group # Subscriber Relationship Effect sherman Dates 1 - Medicare Part B [facility] [id number] Farrah Atkinson Self 4 - Unknown 2 - [facility] [id number] Farrah Atkinson Self 05/03/2019 - Unknown Clinical Notes Includes: Clinical Notes from this encounter * Progress note Date Encounter Last Documented by 04/12/2023 INJECTION Last documented on 04/12/2023; 3:29 PM, Fab Li PA-C; [facility] Physical Findings HPI: Left shoulder pain, total [...]
--- OUTSIDE RECORDS SUMMARY | 2025-01-25 13:49 | XMS_ITS | Encounter Summary ---
Author Organization [facility] Address [address], [address] [place] [address] Care Team Providers Care Screen Cleaner Name Role Phone Unavailable Primary Care Provider Unavailabl e Reason for Visit * Reason Onset Date Comments Surgery Scheduling 12/08/2024 Encounter Details Date Type Department Care Team (Late st Contact Info) Description 12/08/2024 Telephone [facility], [place] [address] Sharon Paulino MD [address] [place] [address] [address] [place] [address] Surgery Scheduling Social History Tobacco [...]
--- OUTSIDE RECORDS SUMMARY | 2025-01-25 13:49 | XMS_ITS | Referral Summary ---
Author Organization [employer] ([place], [place], [place], [place]) Address [address] [place] [address] Care Team Providers Care Mathematical Physicist Name Role Phone [facility], Provider Not In The System [...] Date Dereje rded Speak language other than Luxembourger at home Not on file 04/12/2023 Want [...] of Treatment Not on file Care Teams Mathematical Physicist Relationship Specialty Start Date End Date [facility], Provider Not In The System, [place] [address] PCP - General 04/16/23
--- OUTSIDE RECORDS SUMMARY | 2025-01-25 13:49 | XMS_ITS | Encounter Summary ---
Author Organization [employer] ([place], [place], [place], [place]) Address [address] [place] [address] Care Team Providers Care Hi Low Truck Driver Name Role Phone [facility], Provider Not In The System Primary Care Provider Unavailable Encounter Details Date Type Department Care Team (Late st Contact Info) Description 04/28/2019 Transcribed Document [facility] Family Medicine [facility] [place] [address] ProviderJean-Claude MD [address] [place] [id number] Social History Tobacco Use Types Packs/Day Years Used Date Smoking Tobacco: Never Assessed Comments Unknown Sex and Gender Information Value Date Recorded Sex Assigned at Not on file Legal Sex Female 5:42 PM CDT Gender Identity Not on file Sexual Orientation Not on file documented as of this encounter Miscellaneous Notes * Cerner Conversion Note - Historical ProviderMD - 04/28/2019 8:05 AM PATTERN DATA OPERATOR [facility] Main OR IntraOp Summary Primary Physician: MADISON OSPINA MD-ORT Finalized Date/Time: 04/28/19 08:39:15 Pt. Name: FARRAH ATKINSON D.O.B./Sex: 1950 Female Med Rec #: [id number] Physician: MADISON OSPINA MD-ORT Financial #: [id number] Pt. Type: O Room/Bed: Admit/Disch: 04/28/19 05:30:00 - Institution: [facility] Case Attendance Entry 1 Entry 2 Entry 3 Case Attendee MADISON OSPINA MD-ORT WICKER, KAREN KIM, ARIA WATERS RN Role Performed Surgeon/Proceduralist, AUDIO VISUAL AIDS DIRECTOR/Nurse Picture Copyist Delivery Assistant, First First Time In 04/28/19 07:39:00 [...] [facility] IntraOp Case Attendance Audit 04/28/19 08:34:51 Beeswax Bleacher: LONGGA Modifier: LONGGA 1 <+> Time Out 1 <*> Procedure Knee Arthroscopy 2 <+> Time Out 2 <*> Procedure Knee Arthroscopy 3 <+> Time Out 3 <*> Procedure Knee Arthroscopy 4 <+> Time Out 4 <*> Procedure Knee Arthroscopy 5 <+> Time Out 5 <*> Procedure Knee Arthroscopy 04/28/19 08:07:14 Beeswax Bleacher: LONGGA Modifier: LONGGA <+> 1 Time In [...] [facility] IntraOp Case Times Audit 04/28/19 08:34:50 Beeswax Bleacher: LONGGA Modifier: LONGGA <+> 1 Out Room Time <+> 1 Stop Time 04/28/19 08:31:56 Beeswax Bleacher: LONGGA Modifier: LONGGA <+> 1 Stop Time [...] IntraOp Departure from OR Audit 04/28/19 08:32:27 Beeswax Bleacher: EMBER Modifier: LONGGA 1 <*> Patient Transport [...] RN 04/28/19 08:15:47 [facility] IntraOp General Case Special Librarian 1 Case Information OR OR 05 [facility] Case Level 1 Room Verified Yes Wound Class I - Clean Specialty SN Orthopedic Anesthesia Type General ASA Class 3 Diagnosis Preop Diagnosis PATELLAR CHONDROMALACIA RIGHT KNEE Postop Same As Preop No Postop Diagnosis DICTATED BY Mary Last Modified By: ARIA MELCHOR RN 04/28/19 08:15:39 [facility] IntraOp General Case Data Audit 04/28/19 08:15:39 Beeswax Bleacher: EMBER Modifier: LONGGA <+> 1 ASA Class [...] Entry 1 Medication/Irrigant epinephrine 30mg/30ml vial - [id number] Route of 3ML/3000ML OF NS Administration IRRIGATION [...] [facility] IntraOp Patient Positioning Audit 04/28/19 08:17:49 Beeswax Bleacher: LONGGA Modifier: LONGGA 1 <*> Procedure Knee [...] [facility] IntraOp Surgical Procedures Audit 04/28/19 08:31:50 Beeswax Bleacher: LONGGA Modifier: LONGGA 1 <*> Procedure Knee Arthroscopy 1 <+> Stop 04/28/19 08:27:35 Beeswax Bleacher: LONGGA Modifier: LONGGA 1 <*> Procedure Knee Arthroscopy 1 <*> Additional Procedure Description RIGHT KNEE ARTHROSCOPY FOR RETROPATELLAR CHONDROPLASTY AND PARTIAL MENISCECTOMY 04/28/19 08:21:54 Beeswax Bleacher: LONGGA Modifier: LONGGA 1 <*> Procedure Knee Arthroscopy 1 <*> Additional Procedure Description LEFT KNEE ARTHROSCOPY FOR RETROPATELLAR CHONDROPLASTY AND PARTIAL MENISCECTOMY [facility] IntraOp Temp Regulation Devices Entry 1 Temp Regulation Temperature Forced Air Warming Regulation Device device Temperature 4765 Regulation Device Serial/Unit Number Temperature Upper body Regulation Site Temperature FARRAH MANE, AUDIO VISUAL AIDS DIRECTOR Regulation Device Applied by Last Modified By: [...] 08:31:38 [facility] IntraOp Tourniquet Audit 04/28/19 08:31:38 Beeswax Bleacher: EMBER Modifier: EMBER <+> 1 Stop Time Case Comments <None> Finalized By: ARIA MELCHOR, RN Document Signatures Signed By: ARIA MELCHOR RN 04/28/19 08:39 Electronically signed by May [facility] Conversion Mother'S Helper Cerner at 07/23/2022 4:21 PM CDT documented in this encounter Plan of Treatment Not on file documented as of this encounter Visit Diagnoses Not on filedocumented in this encounter Care Teams Hi Low Truck Driver Relationship Specialty Start Date End Date Leslee, Provider Not In The System, [place] [address] PCP - General 04/16/23 documented as of this encounter
--- OUTSIDE RECORDS SUMMARY | 2025-01-25 13:49 | XMS_ITS | Encounter Summary ---
Author Organization [employer] ([place], [place], [place], [place]) Address [address] [place] [address] Care Team Providers Care Building Custodian Name Role Phone [facility], Provider Not In The System Primary Care Provider Unavailable Encounter Details Date Type Department Care Team (Late st Contact Info) Description 04/28/2019 Transcribed Document [facility] Family Medicine [address] [place] [address] ProviderJean-Claude MD [address], [place] [id number] Social History Tobacco Use Types Packs/Day Years Used Date Smoking Tobacco: Never Assessed Comments Unknown Sex and Gender Information Value Date Recorded Sex Assigned at Not on file Legal Sex Female 5:42 PM CDT Gender Identity Not on file Sexual Orientation Not on file documented as of this encounter Miscellaneous Notes * Cerner Conversion Note - Historical ProviderMD - 04/28/2019 8:29 AM SHAKE SAWYER Pain Assessment Entered On: 04/28/2019 9:28 EST [...] filedocumented in this encounter Care Teams Building Custodian Relationship Specialty Start Date End Date Sjh, Provider Not In The System, [place] [address] PCP - General 04/16/23 documented as of this encounter
--- OUTSIDE RECORDS SUMMARY | 2025-01-25 13:49 | XMS_ITS | Encounter Summary ---
Author Organization [employer] ([place], [place], [place], [place]) Address [address] [place] [address] Care Team Providers Care Ordnance Keeper Name Role Phone [facility], Provider Not In The System Primary Care Provider Unavailable Encounter Details Date Type Department Care Team (Late st Contact Info) Description 04/28/2019 Transcribed Document [facility] Family Medicine [address] [place] [address] ProviderJean-Claude MD [address], [place] [id number] Social History Tobacco Use Types Packs/Day Years Used Date Smoking Tobacco: Never Assessed Comments Unknown Sex and Gender Information Value Date Recorded Sex Assigned at Not on file Legal Sex Female 5:42 PM CDT Gender Identity Not on file Sexual Orientation Not on file documented as of this encounter Miscellaneous Notes * Cerner Conversion Note - Historical ProviderMD - 04/28/2019 9:51 AM NEWSPAPER CARRIERS SUPERVISOR [place] [id number] MOISE PANDEY :1950 Visit Time:04/28/2019 What to do next Your Diagnosis Pain in unspecified knee, Pain in unspecified knee Instructions From Your Care Team No driving or legal decision for 24 hours after anesthesia. may advance diet as tolerated. May take Sandstone 10-325mg 1 tablet by mouth every 4-6 [...] Within 2 to 3 days Where: [address] [place] [address]- Medications What How Much When Instructions Next [...] activities are safe for you. ??? Take tbbd-mmu-dfzjfmu and prescription medicines only as told by [...] 06/25/2001 Document Revised: 11/02/2017 Document Reviewed: 11/02/2017 [employer] Interactive Patient Education ?? 2019 [employer] Knee Arthroscopy, Care After Refer to [...] activities are safe for you. ??? Perform sixqf-vl-jfvzld exercises only as directed by your health [...] 10/06/2005 Document Revised: 08/18/2016 Document Reviewed: 03/15/2015 [employer] Interactive Patient Education ?? 2018 [employer]. acetaminophen and hydrocodone (a SEET a MIN oh fen and ladonna droe KOE done) Hycet, Lorcet, Sandstone, Verdrocet, Vicodin, Xodol, Zamicet What is the [...] may report side effects to FDA at 4-516-SBT-1972. What other drugs will affect acetaminophen and [...] affect acetaminophen and hydrocodone, including prescription and thnj-nhk-hxgixdy medicines, vitamins, and herbal products. Not all [...] to ensure that the information provided by [employer]. ('[employer]') is accurate, up-to-date, and complete, but no guarantee is made to that effect. Drug information contained herein may be time sensitive. [employer] information has been compiled for use by healthcare practitioners and consumers in the [place] and therefore [employer] does not warrant that uses outside of the [place] are appropriate, unless specifically indicated otherwise. [employer] drug information does not endorse drugs, diagnose patients or recommend therapy. [employer] drug information is an informational resource designed [...] effective or appropriate for any given patient. [employer] does not assume any responsibility for any aspect of healthcare administered with the aid of information [employer] provides. The information contained herein is not intended to cover all possible uses, directions, precautions, warnings, drug interactions, allergic reactions, or adverse effects. If you have questions about the drugs you are taking, check with your doctor, nurse or pharmacist. Copyright 5776-8010 [employer]. Version: 15.02. Revision Date: 02/04/2018. Emergency Awareness [...] Assistance with quitting is available by contacting 8-095-MLUM-NOW. This is a free resource providing counseling, [...] was given the opportunity to ask questions. Patient/Animal Nutrition Teacher Name: Patient/Animal Nutrition Teacher Signature: Relationship to Patient: Clinician/Hospital Animal Nutrition Teacher Signature: Date: documented in this encounter Plan of Treatment Not on file documented as of this encounter Visit Diagnoses Not on filedocumented in this encounter Care Teams Ordnance Keeper Relationship Specialty Start Date End Date Leslee, Provider Not In The System, [place] [address] PCP - General 04/16/23 documented as of this encounter
--- OUTSIDE RECORDS SUMMARY | 2025-01-25 13:49 | XMS_ITS | Clinical Summary ---
Author Organization [facility] Address [address] [place] [address] Care Team Providers Care Freight Router Name Role Phone KaleeTimothy Primary Care Provider [phone] Allergies Active Allergy Reactions Criticality Noted Date [...] Patient may need Pain Management referral. Discontinue [place] and use oxycodone 10mg q6h prn. 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 03/13/2022 Chronic arthritis associated [...] Maternal Aunt Kathy Guy Maternal Grandmother Kathy Tryo Mother Kathy Troy, and many others Alive [...] this topic Medical Devices Implanted Type Area Box Sealing Machine Operator Device Identifier Shelf Expiration Date Model / Serial / Lot Cmt Bone Simplex/P Full Dose 10/Pk - [id number] Implanted:Qty : 1 on 07/18/2018 by Bautista Luis MD at [facility] Implant Right: Shoulder TRACY RUBEN 09/29/2020 [id number] / / [id number] Stem Hum Univers [place] 6x60mm - [id number] Implanted:Qty : 1 on 07/18/2018 by Bautista Luis MD at [facility] Implant Right: Shoulder ARTHREX 08/30/2022 [id number] / / [id number] Alberto Vaultlock Sm - [id number] Implanted:Qty : 1 on 07/18/2018 by Bautista Luis MD at [facility] Implant Right: Shoulder ARTHREX 12/30/2022 [id number] / / [id number] Hd Hum Univers2 Cocr 66r24mo - [id number] Implanted:Qty : 1 on 07/18/2018 by Bautista Luis MD at [facility] Implant Right: Shoulder ARTHREX 03/01/2022 [id number] / / [id number] Sut Tw 2/0 38in Wht/Blk - [id number] Implanted:Qty : 3 on 07/18/2018 by Bautista Luis MD at [facility] Implant Right: Shoulder ARTHREX [id number] / / Totl Arth Shldr S3 - [id number] Implanted:Qty : 1 on 07/18/2018 by Bautista Luis MD at [facility] Implant Right: Shoulder ARTHREX CAPTOTLSHLD [id number] / / Procedures Procedure Name Priority Date/Time [...] 01 - Formerly [facility] [address] [place], [place] [id number] Cloth Piecer: Carlos Rod PhD, Phone: [phone] Connor Nunez MD LAB BLOOD ORDERABLES Fin al Result Performing Organization Address [facility] Co de Phone Number [facility] [address] [place] [address], [facility] [address] [place] [address], * Hepatitis C Genotype (12/15/2021 11:55 AM EDT) [facility] Signature Hepatitis C Genotype Comment [facility] Comment: Specimen has insufficient hepatitis C virus RNA to obtain genotyping results. This genotyping assay should only be used for known HCV positive patients with HCV RNA levels above 1000 IU/mL. Please note Comment [facility] Comment: This test was developed and its performance characteristics determined by [facility]. It has not been cleared or approved by the U.S. Food and Drug Administration. The FDA has determined that such clearance or approval is not necessary. This test is used for clinical purposes. It should not be regarded as investigational or for research. Blood 12/15/2021 11:5 5 AM EDT 12/16/2021 Narrative [facility] - 12/21/2021 8:08 PM EDT Performed at: [address] [place] [id number] Cloth Piecer: Genna [place] MD, Phone: [phone] Patient Fasting: Y Connor Nunez MD LAB BLOOD ORDERABLES Fin al Result Performing Organization Address [facility] Co de Phone Number [facility] [address] [place] [address], [facility] [address] [place], [place] [id number], * SCANNED - MAMMO (08/23/2021) Anatomical Region Laterality Modality Other Connor Nunez MD CHART REVIEW TABS Fin al Result * Hemoglobin A1c (07/10/2018 3:05 PM EDT) Hemoglobin A1C 5.10 4.80 - 5.60 % 07/10/2018 3:58 PM EDT [facility] Blood Venipuncture / Unknown 07/10/2018 3:05 PM EDT 07/10/2018 3:36 PM EDT Narrative [facility] - 07/10/2018 3:58 PM EDT Hemoglobin A1C Ranges: Increased Risk for Diabetes 5.7% to 6.4% Diabetes >= 6.5% Diabetic Goal < 7.0% Bautista Luis MD LAB BLOOD ORDERABLES Fin al Result [facility]
[address] [place] [address], from Last 3 Months or Most Recently Relevant to Health Maintenance Insurance MEDICARE A & B Member Subscriber Plan / Payer (Ef fective 2013-Present) Name:Farrah Atkinson Member ID:[id number] Relation to Subscriber:Self Name:Farrah Atkinson Subscriber ID:[id number] Payer ID:[id number] Group ID:Not on file Type:Not on file Address: [facility] [id number] [address] [place] [address] Advance Directives * CPR (Attempt to Resuscitate) (Latest Code Status on File) Date Activated Date Inactivated Comments 07/18/2018 6:35 PM 07/19/2018 6:14 PM Question Answer Comments Code Status (Patient has no pulse and is not breathing): CPR (Attempt to Resuscitate) Medical Interventions (Patie nt has pulse or is breathing): Full Level Of Support Discussed With: Patient Care Teams Freight Router Relationship Specialty Start Date End Date Timothy Granda DO [address] [place] [address] PCP - General Internal Medicine 06/12/23
--- OUTSIDE RECORDS SUMMARY | 2025-01-25 13:49 | XMS_ITS | Encounter Summary ---
Author Organization [facility] ([place], [place], [place], [place]) Address [address] [place] [address] Care Team Providers Care Copying Machine Repairer Name Role Phone [facility], Provider Not In The System Primary Care Provider Unavailable Encounter Details Date Type Department Care Team (Late st Contact Info) Description 04/28/2019 Transcribed Document [facility] [place] [address] ProviderJean-Claude MD [facility] [place] [id number] Social History Tobacco Use Types Packs/Day Years Used Date Smoking Tobacco: Never Assessed Comments Unknown Sex and Gender Information Value Date Recorded Sex Assigned at Not on file Legal Sex Female 5:42 PM CDT Gender Identity Not on file Sexual Orientation Not on file documented as of this encounter Miscellaneous Notes * Cerner Conversion Note - Historical ProviderMD - 04/28/2019 8:29 AM HOTEL OR MOTEL ROOM SERVICE SUPERVISOR Pain Assessment Entered On: 04/28/2019 9:06 [...] on filedocumented in this encounter Care Teams Copying Machine Repairer Relationship Specialty Start Date End Date Leslee, Provider Not In The System, [place] [address] PCP - General 04/16/23 documented as of this encounter
--- OUTSIDE RECORDS SUMMARY | 2025-01-25 13:49 | XMS_ITS | Clinical Summary ---
Author Organization [facility] Address [address] [place] [address] Phone Care Team Providers Care Atm Mechanic Name Role Phone Tosin VARGAS, Chandra Flores Unavailable [phone] Chel VARGAS, Davidson Unavailable [phone] Timothy Granda Primary Care Provider Unavailabl e Reason for Visit and Chief Complaint The Chief Complaint is: Left shoulder pain Problems Includes: Problems addressed during this encounter and other active Problems All Visits Onset Date Resolved Date Provider Condition S tatus Joint Pain Shoulder Left 03/16/2023 Funmi Robles PA-C Active Last Documented On 3 10:30AM ; [facility] Joint Pain Left Knee 03/31/2022 eJsus giles MD Active Last Documented On 2 10:01AM ; [facility] Joint Pain Right Knee 02/12/2019 Timothy dye MD Active Last Documented On 9 10:35AM ; [facility] Joint Pain Hip Right 02/12/2019 Timothy Foster MD Active Last Documented On 9 10:35AM ; [facility] Joint Pain Shoulder 05/29/2018 Bautista christie MD Active Last Documented On 9 10:31AM ; [facility] Plan of Treatment Fall Risk Assessment: [...] - Last Documented On 05/01/2023 3:50PM ; [facility] This is a very complex situation in [...] - Last Documented On 05/01/2023 3:50PM ; [facility] Instructions to patient Lose weight Last Documented On 2:05PM ; [facility] Assessments Includes: Assessments from this encounter Findings - Overweight - Last Documented On 05/01/2023 3:50PM ; [facility] Status post left total shoulder arthroplasty done at an outside institution over a decade ago with signs and symptoms consistent with 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 Patient has severe pain and significant loss of function despite modification of activities utilization of anti-inflammatories. - Last Documented On 05/01/2023 3:50PM ; [facility] She is also status post a right total shoulder replacement done by me several years ago which seems to be per her report functioning well. - Last Documented On 05/01/2023 3:50PM ; [facility] Instructions Includes: Instructions from this encounter Instructions to patient Lose weight Last Documented On 4 2:05PM ; [facility] Medical Equipment - Implanted Devices Includes: Current Devices No Medical Equipment Recorded Medications Includes: Medications discussed during this encounter and other current Medications Current Medications (continue as prescribed) Acyclovir 400 MG Oral Tablet 01/27/2024 Provider: Diagnosis: Last Documented On 4 2:44PM By Karen Ornelas ; [facility], [facility] oxyCODONE HCl 10 MG Oral Tablet 01/22/2024 Provider: Diagnosis: Last Documented On 4 2:44PM By Karen Ornelas ; [facility], [facility] Dicyclomine HCl 10 MG Oral Capsule 01/22/2024 Provid er: CASTILLO ESPINO II, MD Diagnosis: Last Documented On 4 2:44PM By Karen AMBRIZ [facility] tiZANidine HCl 4 MG Oral Tablet 01/18/2024 Provider: Diagnosis: Last Documented On 4 2:44PM By Karen AMBRIZ [facility], [facility] Sulfamethoxazole-Trimethoprim 400-80 MG Oral Tablet Provider: Diagnosis: Last Documented On 4 2:44PM By Karen AMBRIZ [facility], [facility] DULoxetine HCl 60 MG Oral Capsule Delayed Releas e Particles 01/18/2024 Provider: Diagnosis: Last Documented On 4 2:44PM By Karen Ornelas ; [facility], [facility] HYDROmorphone HCl 4 MG Oral Tablet 01/08/2024 Provid er: Diagnosis: Last Documented On 4 2:44PM By Karen Ornelas ; [facility], [facility] Fluticasone-Salmeterol 100-5 0 MCG/ACT Inhalation Aerosol Powder Breath Activated 01/08/2024 Provider: Diagnosis: Last Documented On 4 2:44PM By Karen Ornelas ; [facility] Atorvastatin Calcium 40 MG Oral Tablet 01/08/2024 Pr ovider: Diagnosis: Last Documented On 4 2:44PM By Karen Ornelas ; [facility] Levothyroxine Sodium 25 MCG Oral Tablet 12/31/2023 P rodennisder: Diagnosis: Last Documented On 4 2:44PM By Karen Ornelas ; [facility], [facility] Eliquis 5 MG Oral Tablet 12/31/2023 Provider: Diagnosis: Last Documented On 4 2:44PM By Karen Ornelas ; [facility] Atorvastatin Calcium 20 MG Oral Tablet 12/31/2023 Pr ovider: Diagnosis: Last Documented On 4 2:44PM By Karen Ornelas ; [facility] amLODIPine Besylate 5 MG Oral Tablet 12/10/2023 Prov ider: Diagnosis: Last Documented On 4 2:44PM By Karen Ornelas ; [facility], [facility] Albuterol Sulfate 108 (90 Ba se) MCG/ACT Inhalation Aerosol Powder Breath Activated 06/15/2022 Provider: Diagnosis: Last Documented On 3 8:21AM By Merari Parson ; [facility], [facility] Cymbalta 20 MG Oral Capsule Delayed Release Particles 06/15/2022 Provider: Diagnosis: Last Documented On 3 8:21AM By Merari Parson ; [facility], [facility] Estradiol 0.1 MG/GM Vaginal Cream 06/15/2022 Provide r: Diagnosis: Last Documented On 3 9:04AM By Merari Parson ; [facility], [facility] Retin-A 0.1% External Cream 06/15/2022 Provider: Diagnosis: Last Documented On 3 9:03AM By Merari Parson ; [facility] Nystatin-Triamcinolone 050004-1.1 UNIT/GM-% External C ream 06/15/2022 Provider: Diagnosis: Last Documented On 3 9:02AM By Merari Parson ; [facility], [facility] Triamcinolone Acetonide 0.1% External Cream 06/15/2022 Provider: Diagnosis: Last Documented On 3 8:29AM By Merari Parson ; [facility] oxyCODONE HCl 10 MG Oral Tablet 06/15/2022 Provider: Diagnosis: Last Documented On 3 8:27AM By Merari Parson ; [facility] Losartan Potassium 50 MG Oral Tablet 06/15/2022 Prov ider: Diagnosis: Last Documented On 3 8:26AM By Merari Parson ; [facility] Fluticasone-Salmeterol 250-5 0 MCG/ACT Inhalation Aerosol Powder Breath Activated 06/15/2022 Provider: Diagnosis: Last Documented On 3 8:25AM By Merari Parson ; [facility] Diphenoxylate-Atropine 2.5-0.025 MG Oral Tablet 2022 Provider: Diagnosis: Last Documented On 3 8:22AM By Merari Parson ; [facility], [facility] Acyclovir 400 MG Oral Tablet 10/05/2020 Provider: Diagnosis: Last Documented On 1 3:19PM By Adele Trevino ; [facility] Past Medications on file oxyCODONE HCl 5 MG Oral Tablet 07/19/2022 - 07/29/2022 Provider: Jesus Zimmer MD Diagnosis: Take 1 tablet by mouth every 4-6 hrs for break through pain Last Documented On 3 11:00AM By Jesus Espinosa ; [facility], [facility] Meloxicam 15 MG Oral Tablet 07/03/2022 - 07/17/2022 Pr ovider: Jesus Espinosa MD Diagnosis: once a day Last Documented On 3 8:45AM By Barbara Correa ; [facility], [facility] Ondansetron HCl 4 MG Oral Tablet 06/30/2022 - 07/07/2022 Provider: Jesus Zimmer MD Diagnosis: 1 po q 6h prn nausea Last Documented On 3 1:35PM By Jesus Espinosa ; [facility] oxyCODONE HCl 5 MG Oral Tablet 06/30/2022 - 07/10/2022 Provider: Jesus Zimmer MD Diagnosis: Take 1 tablet by mouth every 4-6 hrs for break through pain Last Documented On 3 1:35PM By Jesus Espinosa ; [facility] Acetaminophen 500 MG Oral Tablet 06/30/2022 - 07/14/2022 Provider: Jesus Zimmer MD Diagnosis: Take 2 tablets by mouth every 8 hours Last Documented On 3 1:35PM By Jesus Espinosa ; [facility], [facility] Cefadroxil 500 MG Oral Capsule 06/30/2022 - 07/07/2022 Provider: Jesus Zimmer MD Diagnosis: Take 1 tablet by mouth every 12 hours for 7 days Last Documented On 3 1:35PM By Jesus Espinosa ; [facility], [facility] Aspirin EC 81 MG Oral Tablet Delayed Release 06/30/2022 - 08/11/2022 Provider: Jesus Espinosa MD Diagnosis: Take 1 tablet by mouth every 12 hours for 42 days post op Last Documented On 3 1:35PM By Jesus Espinosa ; [facility], [facility] Vitamin D3 50 MCG (1999 [place]) Oral Tablet 06/20/2022 - 07/20/2022 Provider: Diana ABDI Diagnosis: once a day Last Documented On 3 1:03PM By Diana Rosas ; [facility], [facility] cloNIDine HCl 0.1 MG Oral Tablet 10/05/2020 - 11/05/19 Provider: Diagnosis: Last Documented On 1 3:16PM By Adele AMBRIZ [facility], [facility] Atorvastatin Calcium 20 MG O ral Tablet 10/05/2020 - 11/04/2020 Provider: MADI CHAPIN MD Diagnosis: Last Documented On 1 3:18PM By Adele AMBRIZ [facility], [facility] Medications Administered Includes: Administered Medications from this encounter No Administered Medications Recorded Vital Signs Includes: Vital Signs from this encounter Vital Name 04/30/2023 02:23P Height (in) 62 Weight (lb) 165 Body Mass Index 30.2 Body Surface Area 1.8 Note: bdf Last Documented: On 04/30/2023 2:23PM ; [facility], [facility] Results Includes: Results discussed during this [...] Documented On 4 2:05PM ; [facility] Not a current smoker. 01/30/2024 Last Documented On 4 2:05PM ; [facility] Tobacco non-user 02/17/2022 Last Documented On 4 2:05PM ; [facility] Caffeine use 10/05/2020 Last Documented On 4 2:05PM ; [facility] Exercising regularly 10/05/2020 Last Documented On 4 2:05PM ; [facility] No recent change in diet 10/05/2020 Last Documented On 4 2:05PM ; [facility], [facility] Not a current smoker. 10/05/2020 Last Documented On 4 2:05PM ; [facility], [facility] Not using alcohol 10/05/2020 Last Documented On 4 2:05PM ; [facility] Not using drugs 10/05/2020 Last Documented On 4 2:05PM ; [facility] Non-smoker 10/05/2020 Last Documented On 4 2:05PM ; [facility] Not a current smoker 05/29/2018 Last Documented On 4 2:05PM ; [facility] No tobacco use 05/29/2018 Last Documented On 4 2:05PM ; [facility] Smoking status : Former smoker 9 Last Documented On 4 2:05PM ; [facility] Procedures and Surgical History Includes: Procedures from this encounter Procedures Code Diagnosis Performing Provider Service L ocation Service Date use of tobacco assessment performed 1000F Last Documented On 4 2:05PM ; [facility] patient screened for future fall risk: documentation of any fall with injury in past year 1100F Last Documented On 4 2:05PM ; [facility] review of medications documented 1160F Last Documented On 4 2:05PM ; [facility] an X-ray was performed 17028 Last Documented On 4 2:05PM ; [facility] an MRI was performed [id number] Last Documented On 4 2:05PM ; [facility] Surgical History Last Updated Past Surgical History: 03/16/2023 Last Documented On 4 2:05PM ; [facility] Medical History Includes: Medical History addressed during this encounter Description Last Updated History of Anemia 03/16/2023 Last Documented On 4 2:05PM ; [facility] History of History of Blood Clots 2022 Last Documented On 4 2:05PM ; [facility] Arthritis 10/05/2020 Last Documented On 4 2:05PM ; [facility] History of Arthroscopy 10/05/2020 Last Documented On 4 2:05PM ; [facility] Recent immunization for flu 10/05/2020 Last Documented On 4 2:05PM ; [facility] Recent immunization for pneumococcal pne umonia 10/05/2020 Last Documented On 4 2:05PM ; [facility] Shoulder arthroplasty 10/05/2020 Last Documented On 4 2:05PM ; [facility] Total hip replacement 10/05/2020 Last Documented On 4 2:05PM ; [facility] Total knee arthroplasty 10/05/2020 Last Documented On 4 2:05PM ; [facility] arthroscopy ~total joint replacement ~hi gh cholesterol 05/29/2018 Last Documented On 4 2:05PM ; [facility] Arthritic joint problems 05/29/2018 Last Documented On 4 2:05PM ; [facility] History of depression 05/29/2018 Last Documented On 4 2:05PM ; [facility] History of hepatitis C 05/29/2018 Last Documented On 4 2:05PM ; [facility] Family History Includes: Family History addressed during this encounter Description Last Updated Family history of cancer 10/05/2020 Last Documented On 4 2:05PM ; [facility] Family history of osteoporosis 1 Last Documented On 4 2:05PM ; [facility] Family history of thromboembolic disease 05/29/2018 Last Documented On 4 2:05PM ; [facility] Review of Systems Includes: Review of [...] Active Last Documented On 06/16/2024 12:48PM ; [facility] Note: joint pain- Major fluoroquinolones Allergy 09/04/2018 Ac tive Last Documented On 5 12:48PM ; [facility], [facility] Encounters Encounter Provider Location Date Check-In Time Check-Out Time Diagnosis Follow Up Bautista Luis MD [facility] B 4 2:02PM 2:30PM Overweight Insurance Includes: Active Insurance Policies Plan Name Member ID Group # Subscriber Relationship Effect sherman Dates 1 - Medicare Part B [facility] [id number] Farrah Atkinson Self 4 - Unknown 2 - [facility] [id number] Farrah Atkinson Self 05/03/2019 - Unknown Clinical Notes Includes: Clinical Notes from this encounter * Progress note Date Encounter Last Documented by 04/30/2023 Follow Up Last documented on 05/01/2023; 3:50 PM, Bautista Luis MD; [facility], [facility] Active Problems & Conditions - Joint [...] directed 0 days, 0 refills - Nystatin-Triamcinolone 927294-0.1 UNIT/GM-% External Cream take as directed 0 [...] Care Team - Chandra Leahy MD - [facility] DO[facility]
--- OUTSIDE RECORDS SUMMARY | 2025-01-25 13:49 | XMS_ITS | Encounter Summary ---
Author Organization [employer] ([place], [place], [place], [place]) Address [address] [place] [address] Care Team Providers Care Associate Entertainment Editor Name Role Phone [facility], Provider Not In The System Primary Care Provider Unavailable Encounter Details Date Type Department Care Team (Late st Contact Info) Description 04/28/2019 Transcribed Document [facility] Family Medicine [address] [place] [address] ProviderJean-Claude MD [address], [place] [id number] Social History Tobacco Use Types Packs/Day Years Used Date Smoking Tobacco: Never Assessed Comments Unknown Sex and Gender Information Value Date Recorded Sex Assigned at Not on file Legal Sex Female 5:42 PM CDT Gender Identity Not on file Sexual Orientation Not on file documented as of this encounter Miscellaneous Notes * Cerner Conversion Note - Historical ProviderMD - 04/28/2019 8:05 AM PIPE BUFFER [facility] Main OR PostOp Summary Primary Physician: MADISON OSPINA MD-ORT Finalized Date/Time: 04/28/19 10:18:29 Pt. Name: MOISE ATKINSON/Sex: 1950 Female Med Rec #: [id number] Physician: MADISON OSPINA MD-ORT Financial #: [id number] Pt. Type: O Room/Bed: Admit/Disch: 04/28/19 05:30:00 - Institution: [facility] Main OR PostOp Case Times Entry 1 In PACU II 04/28/19 09:36:00 Ready for PACU II 04/28/19 10:15:00 Discharge Discharge from PACU 04/28/19 10:15:00 II Last Modified By: Shanel Conrad RN 04/28/19 10:18:24 Finalized By: Shanel Conrad, RN Document Signatures Signed By: Shanel Conrad RN 04/28/19 10:18 Electronically signed by May [facility] Conversion Portfolio Director Cerner at 07/23/2022 4:27 PM CDT documented in this encounter Plan of Treatment Not on file documented as of this encounter Visit Diagnoses Not on filedocumented in this encounter Care Teams Associate Entertainment Editor Relationship Specialty Start Date End Date [facility], Provider Not In The System, [place] [address] PCP - General 04/16/23 documented as of this encounter
--- OUTSIDE RECORDS SUMMARY | 2025-01-25 13:49 | XMS_ITS | Clinical Summary ---
Author Organization [employer] ([place], [place], [place], [place]) Address [address] [place] [address] Care Team Providers Care Retail Merchandiser Technician Name Role Phone [facility], [...] Date Dereje rded Speak language other than Mohawk at home Not on file 04/12/2023 Want [...] - 1-dose 75+ series) 09/26/2026 Care Teams Retail Merchandiser Technician Relationship Specialty Start Date End Date [facility], Provider Not In The System, [place] [address] PCP - General 04/16/23
--- OUTSIDE RECORDS SUMMARY | 2025-01-25 13:49 | XMS_ITS | Encounter Summary ---
Author Organization [employer] ([place], [place], [place], [place]) Address [address] [place] [address] Care Team Providers Care Senior Game Designer Name Role Phone Sj, Provider Not In The System Primary Care Provider Unavailable Encounter Details Date Type Department Care Team (Late st Contact Info) Description 04/28/2019 Transcribed Document [facility] [place] [facility] [place] [address] ProviderJean-Claude MD [address], [place] [id number] Social History Tobacco Use Types Packs/Day Years Used Date Smoking Tobacco: Never Assessed Comments Unknown Sex and Gender Information Value Date Recorded Sex Assigned at Not on file Legal Sex Female 5:42 PM CDT Gender Identity Not on file Sexual Orientation Not on file documented as of this encounter Miscellaneous Notes * Cerner Conversion Note - Jean-Claude ProviderMD - 04/28/2019 9:04 AM PARAMEDICAL AIDE DATE OF PROCEDURE: 04/28/2019 SURGEON: Timothy Foster [...] to the recovery room in satisfactory condition. /[id number] MD MICHAEL Trujillo/AQ / MICHAEL / MODL /[id number] Electronically signed by Leslee Olvera Conversion Ordnance Truck Installation Mechanic Cerner at 07/23/2022 4:25 PM CDT documented in this encounter Plan of Treatment Not on file documented as of this encounter Visit Diagnoses Not on filedocumented in this encounter Care Teams Senior Game Designer Relationship Specialty Start Date End Date Leslee, Provider Not In The System, [place] [address] PCP - General 04/16/23 documented as of this encounter
--- OUTSIDE RECORDS SUMMARY | 2025-01-25 13:49 | XMS_ITS | Encounter Summary ---
Author Organization [employer] ([place], [place], [place], [place]) Address [address] [place] [address] Care Team Providers Care Risk Reduction Counselor Name Role Phone [facility], Provider Not In The System Primary Care Provider Unavailable Encounter Details Date Type Department Care Team (Late st Contact Info) Description 04/28/[address] [facility] [place] Family Medicine [facility] [place] [address] ProviderJean-Claude MD [address], [place] [id number] Social History Tobacco Use Types Packs/Day Years Used Date Smoking Tobacco: Never Assessed Comments Unknown Sex and Gender Information Value Date Recorded Sex Assigned at Not on file Legal Sex Female 5:42 PM CDT Gender Identity Not on file Sexual Orientation Not on file documented as of this encounter Miscellaneous Notes * Cerner Conversion Note - Jean-Claude ProviderMD - 04/28/2019 9:47 AM MANAGER FACILITY Patient Education Materials Follows: General Anesthesia, Adult, [...] activities are safe for you. ??? Take dgjx-[id number]-[id number] and prescription medicines only as told by [...] 06/25/2001 Document Revised: 11/02/2017 Document Reviewed: 11/02/2017 [employer] Patient Education ? 2019 [employer] Knee Arthroscopy, Care After Refer to [...] activities are safe for you. ??? Perform [id number] exercises only as directed by your health [...] 03/15/2015 [employer] Interactive Patient Education ? 2018 [employer] documented in this encounter Plan of Treatment Not on file documented as of this encounter Visit Diagnoses Not on filedocumented in this encounter Care Teams Risk Reduction Counselor Relationship Specialty Start Date End Date Leslee, Provider Not In The System, [place] [address] PCP - General 04/16/23 documented as of this encounter
--- OUTSIDE RECORDS SUMMARY | 2025-01-25 13:49 | XMS_ITS | Encounter Summary ---
Author Organization [employer] Address [address], [address] [place] [address] Care Team Providers Care Director Of Cloud Services Name Role Phone Unavailable Primary Care Provider Unavailabl e Reason for Visit * Reason Onset Date Comments Surgery Scheduling 10/10/2024 Encounter Details Date Type Department Care Team (Late st Contact Info) Description 10/10/2024 Telephone [facility] [address], [place] [id number] Sharon Paulino MD [address] [place] [address] [address] [place] [address] Surgery Scheduling Social History Tobacco [...]
--- OUTSIDE RECORDS SUMMARY | 2025-01-25 13:49 | XMS_ITS | Encounter Summary ---
Author Organization [employer] ([place], [place], [place], [place]) Address [address] [place] [address] Care Team Providers Care Assistant Mechanic Name Role Phone [facility], Provider Not In The System Primary Care Provider Unavailable Encounter Details Date Type Department Care Team (Late st Contact Info) Description 04/28/2019 Transcribed Document [facility] [place] [facility] [place] [address] ProviderJean-Claude MD [address], [place] [id number] Social History Tobacco Use Types Packs/Day Years Used Date Smoking Tobacco: Never Assessed Comments Unknown Sex and Gender Information Value Date Recorded Sex Assigned at Not on file Legal Sex Female 5:42 PM CDT Gender Identity Not on file Sexual Orientation Not on file documented as of this encounter Miscellaneous Notes * Cerner Conversion Note - Historical ProviderMD - 04/28/2019 7:06 AM MARKETING AGENT Pre Procedure Adult Entered On: 04/28/2019 7:12 EST Performed On: 04/28/2019 7:06 EST by ISAMAR MORRISON RN Height and Weight, Clinical Dosing Height Source : Stated Height Entry Format : [place] Height, Feet : 5 ft(Converted to: 152 cm, 60 Inch) Height, Inches : 2 Inch(Converted to: 0 ft 2 Inch, 5.08 cm) Clinical Height : 157.48 cm Weight Source : Standing scale Weight Entry Format : [place] Clinical Dosing Weight : 85 kg Weight, Pounds : 187 lb Body Surface Area (BSA) : 1.86 m2 Body Mass Index : 34.3 kg/m2 (HI) [place] Body Weight : 50 kg ISAMAR MORRISON [...] ISAMAR MORRISON RN - 04/28/2019 7:06 EST [place] Suicide Severity Rating Scale (C-SSRS) CSSRS Past [...] Obtained From : Patient Primary Language : Ivorian Preferred Communication Mode : Verbal Communication Barrier [...] : No Thompson Secondary Diagnosis : No THOMPSNO Use of Ambulatory Aid : None THOMPSON IV Therapy or IV Access : Yes Thompson Gait/Transferring : Normal, bedrest, immobile Thompson Mental Status : Oriented to own ability Thompson Fall Risk Score : 20 THOMPSON Fall Scale Risk Level : 0-24 Low Risk [place] Fall Interventions : Bed in low position, [...] on filedocumented in this encounter Care Teams Assistant Mechanic Relationship Specialty Start Date End Date Leslee, Provider Not In The System, [place] [address] PCP - General 04/16/23 documented as of this encounter
--- OUTSIDE RECORDS SUMMARY | 2025-01-25 13:49 | XMS_ITS | Encounter Summary ---
Author Organization [employer] ([place], [place], [place], [place]) Address [address] [place] [address] Care Team Providers Care Flight Crew Scheduler Name Role Phone [facility], Provider Not In The System Primary Care Provider Unavailable Encounter Details Date Type Department Care Team (Late st Contact Info) Description 04/28/2019 Transcribed Document [facility] [address] [place] [address] ProviderJean-Claude MD [address], [place] [id number] Social History Tobacco Use Types Packs/Day Years Used Date Smoking Tobacco: Never Assessed Comments Unknown Sex and Gender Information Value Date Recorded Sex Assigned at Not on file Legal Sex Female 5:42 PM CDT Gender Identity Not on file Sexual Orientation Not on file documented as of this encounter Miscellaneous Notes * Cerner Conversion Note - Historical ProviderMD - 04/28/2019 8:05 AM CHIEF ENGINEER RESEARCH [facility] Main OR PreOp Summary Primary Physician: MADISON OSPINA MD-ORT Finalized Date/Time: 04/28/19 09:32:12 Pt. Name: MOISE ATKINSON/Sex: 1950 Female Med Rec #: [id number] Physician: MADISON OSPINA MD-ORT Financial #: [id number] Pt. Type: O Room/Bed: Admit/Disch: 04/28/19 05:30:00 - Institution: [facility] PreOp Case Times Entry 1 In Preop 04/28/19 05:40:00 Ready for Holding n/a Room Patient Ready for 04/28/19 07:15:00 Surgery Patient Out of Preop 04/28/19 07:36:00 Patient Out of n/a Holding Room Last Modified By: ISAMAR MORRISON, SPENCER 04/28/19 09:32:08 [facility] PreOp Case Times Audit 04/28/19 09:32:08 Vibration Technician: [email or web address] Modifier: [email or web address] <+> 1 Patient Out of Preop Finalized By: ISAMAR MORRISON, RN Document Signatures Signed By: ISAMAR MORRISON RN 04/28/19 09:32 Electronically signed by May [facility] Conversion Construction Driver Cerner at 07/23/2022 4:31 PM CDT documented in this encounter Plan of Treatment Not on file documented as of this encounter Visit Diagnoses Not on filedocumented in this encounter Care Teams Flight Crew Scheduler Relationship Specialty Start Date End Date [facility], Provider Not In The System, [place] [address] PCP - General 04/16/23 documented as of this encounter
--- OUTSIDE RECORDS SUMMARY | 2025-01-25 13:49 | XMS_ITS | Encounter Summary ---
Author Organization [employer] ([place], [place], [place], [place]) Address [address] [place] [address] Care Team Providers Care Vp & General Counsel Name Role Phone [facility], Provider Not In The System Primary Care Provider Unavailable Encounter Details Date Type Department Care Team (Late st Contact Info) Description 04/28/2019 Transcribed Document [facility] Family Medicine [address] [place] [address] ProviderJean-Claude MD [address], [place] [id number] Social History Tobacco Use Types Packs/Day Years Used Date Smoking Tobacco: Never Assessed Comments Unknown Sex and Gender Information Value Date Recorded Sex Assigned at Not on file Legal Sex Female 5:42 PM CDT Gender Identity Not on file Sexual Orientation Not on file documented as of this encounter Miscellaneous Notes * Cerner Conversion Note - Historical ProviderMD - 04/28/2019 8:05 AM ANALYSIS TESTER [facility] Main OR PACU Summary Primary Physician: MADISON OSPINA MD-ORShantel Finalized Date/Time: 04/28/19 09:40:55 Pt. Name: MOISE ATKINSON/Sex: 1950 Female Med Rec #: [id number] Physician: MADISON OSPINA MD-ORT Financial #: [id number] Pt. Type: O Room/Bed: Admit/Disch: 04/28/19 05:30:00 - Institution: [facility] OR PACU Case Times Entry 1 In PACU I 04/28/19 08:38:00 Ready for PACU 04/28/19 09:33:00 Discharge Discharge from PACU 04/28/19 09:33:00 I Last Modified By: Eduarda Patel Rn Patient Care Bedside 04/28/19 09:40:12 [facility] Main OR PACU Case Times Audit 04/28/19 09:40:12 Antiquer: SADE Modifier: SADE <+> 1 Ready for PACU Discharge <+> 1 Discharge from PACU I Finalized By: Eduarda Patel Rn Patient Care Bedside Document Signatures Signed By: Eduarda Patel Rn Patient Care Bedside 04/28/19 09:40 Electronically signed by May [facility] Conversion Sliver Former Cerner at 07/23/2022 4:28 PM CDT documented in this encounter Plan of Treatment Not on file documented as of this encounter Visit Diagnoses Not on filedocumented in this encounter Care Teams Vp & General Counsel Relationship Specialty Start Date End Date [facility], Provider Not In The System, [place] [address] PCP - General 04/16/23 documented as of this encounter
--- OUTSIDE RECORDS SUMMARY | 2025-01-25 13:49 | XMS_ITS | Clinical Summary ---
Author Organization [facility] , [facility] Address [address] [place] [address] Phone Care Team Providers Care Flanger Name Role Phone Tosin VARGAS, Chandra Flores Unavailable [phone] Chel VARGAS, Davidson Unavailable [phone] Timothy Granda Primary Care Provider Unavailabl e Reason for Visit and Chief Complaint The Chief Complaint is: Left shoulder pain Problems Includes: Problems addressed during this encounter and other active Problems All Visits Onset Date Resolved Date Provider Condition S tatus Joint Pain Shoulder Left 03/16/2023 Funmi Robles PA-C Active Last Documented On 3 10:30AM ; [facility], [facility] Joint Pain Left Knee 03/31/2022 Jesus giles MD Active Last Documented On 2 10:01AM ; [facility], [facility] Joint Pain Right Knee 02/12/2019 Timothy dye MD Active Last Documented On 9 10:35AM ; [facility], [facility] Joint Pain Hip Right 02/12/2019 Timothy Foster MD Active Last Documented On 9 10:35AM ; [facility], [facility] Joint Pain Shoulder 05/29/2018 Bautista christie MD Active Last Documented On 9 10:31AM ; [facility], [facility] Plan of Treatment - Patient screened for future fall risk: documentation of any fall with injury in past year - Last Documented On 01/30/2024 4:58PM ; [facility], [facility] Fall Risk Assessment: This patient has been [...] Documented On 01/30/2024 4:58PM ; [facility], [facility] Referrals To Diagnosis Consult with Orthopedic [facility] Note: REFFERAL TO SHARON Orozco @ [facility] ) Last Documented On 4 4:58PM ; [facility] Dr [facility] // cc Last Documented On 4 11:37AM ; [facility], [facility] Instructions to patient Lose weight Last Documented On 4 2:44PM ; [facility] Assessments Includes: Assessments from this encounter Findings - Overweight - Last Documented On 01/30/2024 4:58PM ; [facility], [facility] Instructions Includes: Instructions from this encounter Instructions to patient Lose weight Last Documented On 4 2:44PM ; [facility], [facility] Medical Equipment - Implanted Devices Includes: Current Devices No Medical Equipment Recorded Medications Includes: Medications discussed during this encounter and other current Medications Discontinued / Stopped on this date Chandra Leahy MD on 03/12/2023 Acyclovir 400 MG Oral Tablet Provider: Chandra Leahy MD Diagnosis: Last Documented On 4 2:43PM By Karen [facility], [facility] Eliquis 5 MG Oral Tablet Provider: Aaron Leahy MD Diagnosis: Last Documented On 4 2:43PM By Karen AMBRIZ [facility], [facility] Diphenoxylate-Atropine 2.5-0.025 MG Oral Tablet Provider: Diagnosis: Last Documented On 4 2:43PM By Karen [facility], [facility] OxyCONTIN 20 MG Oral Tablet ER 12 Hour Abuse-Deterrent Provider: Diagnosis: Last Documented On 4 2:43PM By Karen Ornelas ; [facility] Sulfamethoxazole-Trimethoprim 400-80 MG Oral Tablet Provider: Diagnosis: Last Documented On 4 2:43PM By Karen Ornelas ; [facility] Potassium Chloride Amy ER 2 0 MEQ Oral Tablet Extended Release Provider: MADI CHAPIN MD Diagnosis: Last Documented On 4 2:43PM By Karen Ornelas ; [facility] Levothyroxine Sodium 25 MCG Oral Tablet P rovider: Chandra Leahy MD Diagnosis: Last Documented On 4 2:43PM By Karen Ornelas ; [facility] amLODIPine Besylate 5 MG Oral Tablet Prov ider: Diagnosis: Last Documented On 4 2:43PM By Karen Ornelas ; [facility] Cephalexin 500 MG Oral Capsule Provider: Diagnosis: Last Documented On 4 2:43PM By Karen Ornelas ; [facility] oxyCODONE HCl 10 MG Oral Tablet Provider: Chandra Leahy MD Diagnosis: Last Documented On 4 2:43PM By Karen Ornelas ; [facility] amLODIPine Besylate 10 MG Oral Tablet Pro vider: MADI CHAPIN MD Diagnosis: Last Documented On 4 2:44PM By Karen Ornelas ; [facility] Atorvastatin Calcium 20 MG Oral Tablet Pr ovider: MADI CHAPIN MD Diagnosis: Last Documented On 4 2:44PM By Karen Ornelas ; [facility] cloNIDine HCl 0.1 MG Oral Tablet Provider : Diagnosis: Last Documented On 4 2:44PM By Karen Ornelas ; [facility] Potassium Chloride Amy ER 2 0 MEQ Oral Tablet Extended Release Provider: MADI CHAPIN MD Diagnosis: Last Documented On 4 2:44PM By Karen Ornelas ; [facility] Current Medications (continue as prescribed) Acyclovir 400 MG Oral Tablet 01/27/2024 Provider: Diagnosis: Last Documented On 4 2:44PM By Karen Ornelas ; [facility] oxyCODONE HCl 10 MG Oral Tablet 01/22/2024 Provider: Diagnosis: Last Documented On 4 2:44PM By Karen Ornelas ; [facility] Dicyclomine HCl 10 MG Oral Capsule 01/22/2024 Provid er: CASTILLO ESPINO II, MD Diagnosis: Last Documented On 4 2:44PM By Karen Ornelas ; [facility] tiZANidine HCl 4 MG Oral Tablet 01/18/2024 Provider: Diagnosis: Last Documented On 4 2:44PM By Karen Ornelas ; [facility] Sulfamethoxazole-Trimethoprim 400-80 MG Oral Tablet Provider: Diagnosis: Last Documented On 4 2:44PM By Karen Ornelas ; [facility] DULoxetine HCl 60 MG Oral Capsule Delayed Releas e Particles 01/18/2024 Provider: Diagnosis: Last Documented On 4 2:44PM By Karen Ornelas ; [facility] HYDROmorphone HCl 4 MG Oral Tablet 01/08/2024 Provid er: Diagnosis: Last Documented On 4 2:44PM By Karen Ornelas ; [facility] Fluticasone-Salmeterol 100-5 0 MCG/ACT Inhalation Aerosol Powder Breath Activated 01/08/2024 Provider: Diagnosis: Last Documented On 4 2:44PM By Karen Ornelas ; [facility] Atorvastatin Calcium 40 MG Oral Tablet 01/08/2024 Pr ovider: Diagnosis: Last Documented On 4 2:44PM By Karen Ornelas ; [facility] Levothyroxine Sodium 25 MCG Oral Tablet 12/31/2023 P rovider: Diagnosis: Last Documented On 4 2:44PM By Karen Ornelas ; [facility] Eliquis 5 MG Oral Tablet 12/31/2023 Provider: Diagnosis: Last Documented On 4 2:44PM By Karen Ornelas ; [facility] Atorvastatin Calcium 20 MG Oral Tablet 12/31/2023 Pr ovider: Diagnosis: Last Documented On 4 2:44PM By Karen Ornelas ; [facility], [facility] amLODIPine Besylate 5 MG Oral Tablet 12/10/2023 Prov ider: Diagnosis: Last Documented On 4 2:44PM By Karen Ornelas ; [facility], [facility] Albuterol Sulfate 108 (90 Ba se) MCG/ACT Inhalation Aerosol Powder Breath Activated 06/15/2022 Provider: Diagnosis: Last Documented On 3 8:21AM By Merari Parson ; [facility], [facility] Cymbalta 20 MG Oral Capsule Delayed Release Particles 06/15/2022 Provider: Diagnosis: Last Documented On 3 8:21AM By Merari Parson ; [facility], [facility] Estradiol 0.1 MG/GM Vaginal Cream 06/15/2022 Provide r: Diagnosis: Last Documented On 3 9:04AM By Merari Parson ; [facility], [facility] Retin-A 0.1% External Cream 06/15/2022 Provider: Diagnosis: Last Documented On 3 9:03AM By Merari Parson ; [facility], [facility] Nystatin-Triamcinolone 731368-8.1 UNIT/GM-% External C ream 06/15/2022 Provider: Diagnosis: Last Documented On 3 9:02AM By Merari Parson ; [facility], [facility] Triamcinolone Acetonide 0.1% External Cream 06/15/2022 Provider: Diagnosis: Last Documented On 3 8:29AM By Merari Parson ; [facility], [facility] oxyCODONE HCl 10 MG Oral Tablet 06/15/2022 Provider: Diagnosis: Last Documented On 3 8:27AM By Merari Parson ; [facility], [facility] Losartan Potassium 50 MG Oral Tablet 06/15/2022 Prov ider: Diagnosis: Last Documented On 3 8:26AM By Merari Parson ; [facility], [facility] Fluticasone-Salmeterol 250-5 0 MCG/ACT Inhalation Aerosol Powder Breath Activated 06/15/2022 Provider: Diagnosis: Last Documented On 3 8:25AM By Merari Parson ; [facility], [facility] Diphenoxylate-Atropine 2.5-0.025 MG Oral Tablet 2022 Provider: Diagnosis: Last Documented On 3 8:22AM By Merari Parson ; [facility], [facility] Acyclovir 400 MG Oral Tablet 10/05/2020 Provider: Diagnosis: Last Documented On 1 3:19PM By Adele Trevino ; [facility], [facility] Past Medications on file oxyCODONE HCl 5 MG Oral Tablet 07/19/2022 - 07/29/2022 Provider: Jesus Zimmer MD Diagnosis: Take 1 tablet by mouth every 4-6 hrs for break through pain Last Documented On 3 11:00AM By Jesus Espinosa ; [facility], [facility] Meloxicam 15 MG Oral Tablet 07/03/2022 - 07/17/2022 Pr ovider: Jesus Espinosa MD Diagnosis: once a day Last Documented On 3 8:45AM By Barbara Correa ; [facility], [facility] Ondansetron HCl 4 MG Oral Tablet 06/30/2022 - 07/07/2022 Provider: Jesus Zimmer MD Diagnosis: 1 po q 6h prn nausea Last Documented On 3 1:35PM By Jesus Espinosa ; [facility], [facility] oxyCODONE HCl 5 MG Oral Tablet 06/30/2022 - 07/10/2022 Provider: Jesus Zimmer MD Diagnosis: Take 1 tablet by mouth every 4-6 hrs for break through pain Last Documented On 3 1:35PM By Jesus Espinosa ; [facility], [facility] Acetaminophen 500 MG Oral Tablet 06/30/2022 - 07/14/2022 Provider: Jesus Zimmer MD Diagnosis: Take 2 tablets by mouth every 8 hours Last Documented On 3 1:35PM By Jesus Espinosa ; [facility], [facility] Cefadroxil 500 MG Oral Capsule 06/30/2022 - 07/07/2022 Provider: Jesus Zimmer MD Diagnosis: Take 1 tablet by mouth every 12 hours for 7 days Last Documented On 3 1:35PM By Jesus Espinosa ; [facility], [facility] Aspirin EC 81 MG Oral Tablet Delayed Release 06/30/2022 - 08/11/2022 Provider: Jesus Espinosa MD Diagnosis: Take 1 tablet by mouth every 12 hours for 42 days post op Last Documented On 3 1:35PM By Jesus Espinosa ; [facility], [facility] Vitamin D3 50 MCG (1999 [place]) Oral Tablet 06/20/2022 - 07/20/2022 Provider: Diana ABDI Diagnosis: once a day Last Documented On 3 1:03PM By Diana Rosas ; [facility], [facility] cloNIDine HCl 0.1 MG Oral Tablet 10/05/2020 - 11/05/19 Provider: Diagnosis: Last Documented On 1 3:16PM By Adele Sawyer [facility], [facility] Atorvastatin Calcium 20 MG O ral Tablet 10/05/2020 - 11/04/2020 Provider: MADI CHAPIN MD Diagnosis: Last Documented On 1 3:18PM By Adele Trevino ; [facility], [facility] Medications Administered Includes: Administered Medications from this encounter No Administered Medications Recorded Vital Signs Includes: Vital Signs from this encounter Vital Name 01/30/2024 02:45P Height (in) 62 Weight (lb) 140 Body Mass Index 25.6 Body Surface Area 1.6 Note: ct Last Documented: On 01/30/2024 3:32PM ; [facility], [facility] Results Includes: Results discussed during this encounter [...] will refer her to Dr. Mixon in [place] for further evaluation and treatment. Social History Description Last Updated Recent change in diet 01/30/2024 Last Documented On 4 4:58PM ; [facility], [facility] Not a current smoker. 01/30/2024 Last Documented On 4 4:58PM ; [facility], [facility] Caffeine use 10/05/2020 Last Documented On 4 2:44PM ; [facility], [facility] Exercising regularly 10/05/2020 Last Documented On 4 2:44PM ; [facility], [facility] No recent change in diet 10/05/2020 Last Documented On 4 2:44PM ; [facility], [facility] Not a current smoker. 10/05/2020 Last Documented On 4 2:44PM ; [facility], [facility] Not using alcohol 10/05/2020 Last Documented On 4 2:44PM ; [facility], [facility] Not using drugs 10/05/2020 Last Documented On 4 2:44PM ; [facility], [facility] No tobacco use 05/29/2018 Last Documented On 4 2:44PM ; [facility] Smoking Status Unknown Procedures and Surgical History Includes: Procedures from this encounter Procedures Code Diagnosis Performing Provider Service Location Service Date X-RAY EXAM OF SHOULDER 2-3 VIEWS (LEFT) 82683 Pain in left shoulder, Presence of left artificial shoulder joint Chandra Grewal PA-C [facility] 01/30/2024 Last Documented On 4 10:59AM ; [facility] use of tobacco assessment performed 1000F Last Documented On 4 2:44PM ; [facility] patient screened for future fall risk: documentation of any fall with injury in past year 1100F Last Documented On 4 2:44PM ; [facility] review of medications documented 1160F Last Documented On 4 2:44PM ; [facility] an X-ray was performed 41705 Last Documented On 4 2:44PM ; [facility] CT scan [id number] Last Documented On 4 3:34PM ; [facility] an MRI was performed 30465 Last Documented On 4 2:44PM ; [facility] Surgical History Last Updated History of History of Arthroscopy 2023 Last Documented On 4 4:58PM ; [facility] History of Previous Fractures 01/30/2024 Last Documented On 4 4:58PM ; [facility] History of total hip replacement 024 Last Documented On 4 4:58PM ; [facility] History of total knee arthroplasty 01/29 Last Documented On 4 4:58PM ; [facility] Past Surgical History: 03/16/2023 Last Documented On 4 2:44PM ; [facility] Medical History Includes: Medical History addressed during this encounter Description Last Updated History of asthma 01/30/2024 Last Documented On 4 4:58PM ; [facility] History of History of Blood Transfusion 01/30/2024 Last Documented On 4 4:58PM ; [facility], [facility] History of Hypertension 01/30/2024 Last Documented On 4 4:58PM ; [facility] History of Anemia 03/16/2023 Last Documented On 4 2:44PM ; [facility], [facility] History of arthritis 03/16/2023 Last Documented On 4 2:44PM ; [facility], [facility] History of History of Blood Clots 2022 Last Documented On 4 2:44PM ; [facility] Anemia 10/05/2020 Last Documented On 4 2:44PM ; [facility], [facility] Arthritis 10/05/2020 Last Documented On 4 2:44PM ; [facility], [facility] History of Arthroscopy 10/05/2020 Last Documented On 4 2:44PM ; [facility], [facility] Recent immunization for flu 10/05/2020 Last Documented On 4 2:44PM ; [facility], [facility] Recent immunization for pneumococcal pne umonia 10/05/2020 Last Documented On 4 2:44PM ; [facility], [facility] Shoulder arthroplasty 10/05/2020 Last Documented On 4 2:44PM ; [facility], [facility] Total hip replacement 10/05/2020 Last Documented On 4 2:44PM ; [facility], [facility] Total knee arthroplasty 10/05/2020 Last Documented On 4 2:44PM ; [facility], [facility] arthroscopy ~total joint replacement ~hi gh cholesterol 05/29/2018 Last Documented On 4 2:44PM ; [facility], [facility] Arthritic joint problems 05/29/2018 Last Documented On 4 2:44PM ; [facility], [facility] History of depression 05/29/2018 Last Documented On 4 2:44PM ; [facility], [facility] History of hepatitis C 05/29/2018 Last Documented On 4 2:44PM ; [facility], [facility] Family History Includes: Family History addressed during this encounter Description Last Updated Family history of cancer 10/05/2020 Last Documented On 4 2:44PM ; [facility] Family history of osteoporosis 1 Last Documented On 4 2:44PM ; [facility] Family history of thromboembolic disease 05/29/2018 Last Documented On 4 2:44PM ; [facility] Review of Systems Includes: Review [...] Active Last Documented On 06/16/2024 12:48PM ; [facility] Note: joint pain- Major fluoroquinolones Allergy 09/04/2018 Ac tive Last Documented On 5 12:48PM ; [facility] Encounters Encounter Provider Location Date Check-In Time Check-Out Time Diagnosis Follow Up Chandra Grewal PA-C [facility] 01/30/20 24 2:50PM 3:29PM Overweight Insurance Includes: Active Insurance Policies Plan Name Member ID Group # Subscriber Relationship Effect sherman Dates 1 - Medicare Part B [facility] [id number] Farrah Atkinson Self 4 - Unknown 2 - [facility] [id number] Fararh Atkinson Self 05/03/2019 - Unknown Clinical Notes Includes: Clinical Notes from this encounter * Progress note Date Encounter Last Documented by 01/30/2024 Follow Up Last documented on 01/30/2024; 4:58 PM, Chandra Grewal PA-C; [facility], [facility] Active Problems & Conditions - Joint Pain [...] will refer her to Dr. Mixon in [place] for further evaluation and treatment. Current Medication [...] directed 0 days, 0 refills - Nystatin-Triamcinolone 611342-9.1 UNIT/GM-% External Cream take as directed 0 [...] Instructions: REFFERAL TO SHARON MIXON @ [facility] ) Referral/Orthopedic: Consult with Orthopedic Instructions: Dr [...] Care Team - Chandra Leahy MD - HANDLE TURNER
--- OUTSIDE RECORDS SUMMARY | 2025-01-25 13:49 | XMS_ITS | Encounter Summary ---
Author Organization [employer] ([place], [place], [place], [place] Address [address] [place] [address] Care Team Providers Care Plant Operations Vice President Name Role Phone [facility], Provider Not In The System Primary Care Provider Unavailable Encounter Details Date Type Department Care Team (Late st Contact Info) Description 04/28/2019 Transcribed Document [facility] Family Medicine [address] [place] [address] ProviderJean-Claude MD [address] [id number] Social History Tobacco Use Types Packs/Day Years Used Date Smoking Tobacco: Never Assessed Comments Unknown Sex and Gender Information Value Date Recorded Sex Assigned at Not on file Legal Sex Female 5:42 PM CDT Gender Identity Not on file Sexual Orientation Not on file documented as of this encounter Miscellaneous Notes * Cerner Conversion Note - Historical ProviderMD - 04/28/2019 10:01 AM REFUGE MANAGER [place] [phone] MOISE PANDEY :1950 Visit Time:04/28/2019 What to do next Your Diagnosis Pain in unspecified knee, Pain in unspecified knee Instructions From Your Care Team No driving or legal decision for 24 hours after anesthesia. may advance diet as tolerated. May take Milan 10-325mg 1 tablet by mouth every 4-6 [...] Comments Appointment has been made Where: [address] [facility] [address] [place] [address]- Medications What How Much When Instructions Next [...] activities are safe for you. ??? Take vnzg-rrh-gusjywt and prescription medicines only as told by [...] 06/25/2001 Document Revised: 11/02/2017 Document Reviewed: 11/02/2017 [employer] Patient Education ?? 2019 [employer] Knee Arthroscopy, Care After Refer to [...] activities are safe for you. ??? Perform erlmd-jv-usmjyl exercises only as directed by your health [...] 10/06/2005 Document Revised: 08/18/2016 Document Reviewed: 03/15/2015 [employer] Patient Education ?? 2018 [employer]. acetaminophen and hydrocodone (a SEET a MIN oh fen and ladonna droe KOE done) Hycet, Lorcet, Milan, Verdrocet, Vicodin, Xodol, Zamicet What is the [...] may report side effects to FDA at 9-984-MZZ-0409. What other drugs will affect acetaminophen and [...] affect acetaminophen and hydrocodone, including prescription and luco-sad-jmjchpm medicines, vitamins, and herbal products. Not all [...] to ensure that the information provided by [employer]. ('[employer]') is accurate, up-to-date, and complete, but no guarantee is made to that effect. Drug information contained herein may be time sensitive. [employer] information has been compiled for use by healthcare practitioners and consumers in the [place] and therefore [employer] does not warrant that uses outside of the [place] are appropriate, unless specifically indicated otherwise. [employer] drug information does not endorse drugs, diagnose patients or recommend therapy. [employer] drug information is an informational resource designed [...] effective or appropriate for any given patient. [employer] does not assume any responsibility for any aspect of healthcare administered with the aid of information [employer] provides. The information contained herein is not intended to cover all possible uses, directions, precautions, warnings, drug interactions, allergic reactions, or adverse effects. If you have questions about the drugs you are taking, check with your doctor, nurse or pharmacist. Copyright 1615-5027 [employer]. Version: 15.02. Revision Date: 02/04/2018. Emergency Awareness [...] Assistance with quitting is available by contacting 3-763-NJOT-NOW. This is a free resource providing counseling, [...] was given the opportunity to ask questions. Patient/Financial Recording Clerk Name: Patient/Financial Recording Clerk Signature: Relationship to Patient: Clinician/Hospital Financial Recording Clerk Signature: Date: documented in this encounter Plan of Treatment Not on file documented as of this encounter Visit Diagnoses Not on filedocumented in this encounter Care Teams Plant Operations Vice President Relationship Specialty Start Date End Date Deejay, Provider Not In The System, [place] [address] PCP - General 04/16/23 documented as of this encounter
--- OUTSIDE RECORDS SUMMARY | 2025-01-25 13:50 | XMS_ITS | Encounter Summary ---
Author Organization Healthcare Address [address] [place] [address] Care Team Providers Care Metal Riveting Machine Operator Name Role Phone Chandra Leahy MD Primary Care Provider [phone] Timothy Granda DO Primary Care Provider [phone] Sadia Campo MOTION PICTURES CARTOONIST Unavailable Unavailable Encounter Details Date Type Department Care Team (Late st Contact Info) Description 08/14/2022 Lab Requisition [facility] [address] [place] [address] Dilip Lloyd MD [address] [address] Encounter for general adult medical [...] drink first t mini in the morning (EYE-S IRON WORKER) to steady your nerves or to [...] 07/20/2025 10:40 AM EDT Office Visit Professional [facility] Nephrology, Bone & Mineral Metabolism [address], [address] [place] [address] Gutierrez Domínguez MD [address] [place] [address] documented as of this encounter [...] LAB MICROBIOLOGY - GENERAL ORDERABLES Final Result [facility] [address] [place] [address] documented in this encounter Visit Diagnoses Diagnosis Encounter for general adult medical examination without abnormal findings documented in this encounter Additional Health Concerns Infection Onset Date Last Indicated Resolved Time COVID-19 Rule-Out 07/22/2023 07/22/2023 07/22/2023 12:14 PM EDT C. difficile Rule-Out 07/26/2023 08/01/20232023 1:07 AM EDT Gastrointestinal Rule-Out 08/02/2023 08/01/2023 3:00 AM EDT documented as of this encounter Care Teams Metal Riveting Machine Operator Relationship Specialty Start Date End Date Chandra Leahy MD [address] [place] [address] PCP - General 08/02/22 05/24/23 Timothy Granda DO [address] [place] [address] PCP - General 05/25/23 [place] [address] Jacquard Loom Heddles Tier Snowblower Mechanic 08/03/22 06/21/24 documented as of this encounter
--- OUTSIDE RECORDS SUMMARY | 2025-01-25 13:50 | XMS_ITS | Encounter Summary ---
Author Organization [facility] Address [address] [place] [address] Care Team Providers Care Agricultural Science Professor Name Role Phone Timothy Granda DO Primary Care Provider [phone] Encounter Details Date Type Department Care Team (Latest Contact Info) Description 01/19/2025 Travel Social History Tobacco Use Types Packs/Day Years [...] drink first t mini in the morning (EYE-LOW EMISSION AUTOMOBILE DESIGNER) to steady your nerves or to get rid of a hangover? 0 11/15/2023 CAGE Questionnaire Score 0 024 Utilities Answer Date Recorded In the past 12 months has th e [employer], gas, oil, or water company threatened to [...] Description 07/20/2025 10:40 AM EDT Office Visit [facility] Nephrology, Bone & Mineral Metabolism [address], [address] [place] [address] Gutierrez Domínguez MD [address] [place] [phone] documented as of this encounter Visit Diagnoses Not on filedocumented in this encounter Additional Health Concerns Assessment Noted Time A fall risk assessment has been complete d for the patient 01/19/2025 10:00 AM EDT A Body Mass Index follow-up plan has been documented for the patient 01/20/2025 11:25 AM EDT documented as of this encounter Care Teams Agricultural Science Professor Relationship Specialty Start Date End Date Timothy Granda DO [address] [place] [id number] PCP - General 05/25/23 documented as of this encounter
--- OUTSIDE RECORDS SUMMARY | 2025-01-25 13:50 | XMS_ITS | Encounter Summary ---
Author Organization [facility] Address [address], [address] [place] [address] Care Team Providers Care Organization Development Consultant Name Role Phone Unavailable Primary Care Provider Unavailabl e Reason for Visit * Reason Onset Date Comments Surgery Scheduling 11/20/2024 LT SHDLR Encounter Details Date Type Department Care Team (Late st Contact Info) Description 11/20/2024 Telephone [facility] [address] [place] [phone] [place] [address] [place] [address] [address] [place] [address] Surgery Scheduling (LT SHDLR) Social [...]
--- OUTSIDE RECORDS SUMMARY | 2025-01-25 13:50 | XMS_ITS | Encounter Summary ---
Author Organization [facility] Address [address], [address] [place] [address] Care Team Providers Care Machine Cloth Trimmer Name Role Phone Unavailable Primary Care Provider Unavailabl e Encounter Details Date Type Department Care Team (Latest Contact Info) Description 11/05/2024 Prep for Procedure [facility] Orthopedic and Sports Medicine [address] [place] [address] [place] History of total replacement of left shoulder [...]
--- OUTSIDE RECORDS SUMMARY | 2025-01-25 13:50 | XMS_ITS | Encounter Summary ---
Author Organization [facility] Address [address] [place] [address], [address] [place] [address] Care Team Providers Care Stenographic Court Reporter Name Role Phone Unavailable Primary Care Provider Unavailabl e Reason for Visit * Reason Onset Date Comments Care Coordination 11/21/2024 Nurse navigato r Encounter Details Date Type Department Care Team (Late st Contact Info) Description 11/21/2024 Telephone [facility] Orthopedic and Sports Medicine [place] [phone] Willa Lan RN Care Coordination (Nurse navigator) [...]
--- OUTSIDE RECORDS SUMMARY | 2025-01-25 13:50 | XMS_ITS | Clinical Summary ---
Author Organization [facility] Address [address] [place] [address] Phone Care Team Providers Care Deputy District Customs Director Name Role Phone Unavailable Primary Care [...] Insurance MEDICARE [place] PART A AND B [employer]
--- OUTSIDE RECORDS SUMMARY | 2025-01-25 13:50 | XMS_ITS | Clinical Summary ---
Author Organization [facility] Address [address] [place] [address] Care Team Providers Care Egg Processor Name Role Phone Timothy Granda DO Primary Care Provider [phone] Allergies Active Allergy Reactions Criticality Noted Date Comments Azithromycin Unknown - Patient st ates they do not know rxn details Low 01/31/2017 Ciprofloxacin Other - please docum ent in the comment field Low 08/03/2022 Joint pain Prochlorperazine Palpitations Low 08/04/2022 Tremors Quinolones Unknown - Patient st ates they do not know rxn details,Rash Low 03/08/2016 Fluoroquinolones- knee tendon, extreme pain and risk of rupture. Note: joint pain- Major Fluoroquinolones- knee tendon, extreme pain and risk of rupture. Note: joint pain- Major Joint pain Fluoroquinolones- knee tendon, extreme pain and risk of rupture. Medications * This document contains information received from the source organization and may not represent a complete record from that organization. losartan (Cozaar) 50 MG tablet Take 1.5 tablets (75 mg) by mouth 1 (one) time each day. 10/24/19 23 Active DULoxetine (Cymbalta) [address] capsule Take 2 capsules (120 mg) by mouth 1 (one) time each day. 12/21/19 23 Active levothyroxine (Synthroid, Levoxyl) 25 MCG tablet Take 1 tablet (25 mcg) by mouth 1 (one) time each day. 12/02/19 23 Active cholecalciferol (Vitamin D-3) 50 MCG (2000 UT) capsule Take 1 capsule (2,000 Units) by mouth 1 (one) time each day. Active fluticasone-salmet tai (Advair Diskus) 250-50 MCG/ACT diskus inhaler Inhale 1 puff 2 (two) times a day. Rinse mouth with water after use to reduce aftertaste and incidence of candidiasis. Do not swallow. Active oxyCODONE (Roxicodone) 10 MG immediate release tablet Take 0.5 tablets (5 mg) by mouth every 4 (four) hours if needed for severe pain. Active diphenoxylate-atro pine (Lomotil) 2.5-0.025 MG tablet Take 1 tablet by mouth 3 (three) times a day. Active amLODIPine (Norvasc) 5 MG tablet Take 1 tablet (5 mg) by mouth 1 (one) time each day. 30 tablet 11/16/19 24 Active ondansetron ODT (Zofran-ODT) 4 MG disintegrating tablet Take 1 tablet (4 mg) by mouth every 6 (six) hours if needed for nausea or vomiting. 20 tablet 11/15/19 24 Active cloNIDine (Catapres) 0.1 MG tablet 11/08/19 24 Active acyclovir (Zovirax) 400 MG tablet 12/10/19 25 Active amitriptyline (Elavil) 50 MG tablet 12/28/19 25 Active ARIPiprazole (Abilify) 2 MG tablet Take 1 tablet by mouth daily. 11/22/19 25 Active estradiol (Estrace) 0.1 MG/GM vaginal cream 01/12/20 25 Active nystatin (Mycostatin) cream 01/09/20 25 Active atorvastatin (Lipitor) 40 MG tablet 01/12/20 25 Active tiZANidine (Zanaflex) 4 MG tablet 03/20/20 24 Active sulfamethoxazole-t rimethoprim (Bactrim DS) 800-160 MG tablet 01/13/20 25 Active HYDROmorphone (Dilaudid) 4 MG tablet 05/07/19 25 Active furosemide (Lasix) 40 MG tablet 01/03/20 25 Active aspirin 81 MG EC tablet Take 1 tablet (81 mg) by mouth 1 (one) time each day. 025 Discontinu ed(Per Patient Report) atorvastatin (Lipitor) 20 MG tablet Take 1 tablet (20 mg) by mouth 1 (one) time each day. 11/15/19 Discontinu ed(Per Patient Report) potassium chloride CR (Klor-Con M20) 20 MEQ ER tablet Take 1 tablet (20 mEq) by mouth 2 (two) times a day. 03/01/20 Discontinu ed(Per Patient Report) acetaminophen (Tylenol) 325 MG tablet Take 2 tablets (650 mg) by mouth every 6 (six) hours. 100 tablet 10/05/19 24 Discontinu ed(Per Patient Report) gabapentin (Neurontin) 300 MG capsule Take 1 capsule (300 mg) by mouth 3 (three) times a day. 60 capsule 10/05/19 Discontinu ed(Per Patient Report) apixaban (Eliquis) 5 MG tablet Take 1 tablet (5 mg) by mouth 2 (two) times a day. 60 tablet 10/05/19 Discontinu ed(Per Patient Report) ferrous sulfate 325 (65 Fe) MG tablet Take 1 tablet (325 mg) by mouth 1 (one) time each day with breakfast. Discontinu ed(Per Patient Report) Active Problems Problem Noted Date Diagnosed Date Vitamin D deficiency 01/20/2025 CKD stage 3a, GFR 45-59 ml/min 01/20/2025 Chronic kidney disease-mineral and bone disorder (CKD-MBD) 01/20/2025 Secondary hyperparathyroidism of renal origin Hyperlipidemia 01/20/2025 Small bowel stricture 09/17/2023 Functional diarrhea 07/22/2023 [...] Complicates all aspects of care -home medications Acute kidney injury 08/04/2022 Overview (08/13/2022): Cr 1.38 on admission baseline .9 Avoid nephrotoxins Continue to trend UOP improved and creatinine dowtrending Resolved Problems Problem Noted Date Diagnosed Date [...] Bivalirudin drip transitioned to therapeutic lovenox 08/13 Lactic acid acidosis 08/04/2022 023 Overview (08/06/2022): [...] hypercapnia 08/04/2022 08/18/2022 Overview (08/15/2022): Respiratory decline 2/ sedating medication Was Intubated and on mechanical [...] Encounters Date Type Department Care Team Description 01/19/2025 10:00 AM EDT Office Visit [facility] Nephrology, Bone & Mineral Metabolism [address], [address] [place] [address] Gutierrez Domínguez MD Acute kidney injury (Primary Dx); Vitamin D deficiency; CKD stage 3a, GFR 45-59 ml/min ([facility]/HCC); Chronic kidney disease-mineral and bone disorder (CKD-MBD); Secondary hyperparathyroidism of renal origin ([facility]); Hypertension, unspecified type; Hyperlipidemia, unspecified hyperlipidemia type 01/19/2025 Travel 01/07/2025 Orders Only [facility] [address] [place] [address] Shantal Solorio TIP (acute kidney injury) (Primary Dx); Vitamin D insufficiency from Last 3 Months Immunizations Immunization Administration Dates Next Due Influenza Vaccine, Quadrivalent, Adjuvanted 01/31,01/25/2022,05/31/2021 Influenza, injectable, quadrivalent 02/14/2015 Influenza, injectable, quadr ivalent, preservative free 02/14/2015 Influenza, trivalent, adjuvanted 12/22/2019 [employer] COVID-19 Vaccine (Blue Cap) 18+ 06/10/19 Moderna [...] drink first t mini in the morning (EYE-JAVA ARCHITECT) to steady your nerves or to get rid of a hangover? 0 11/15/2023 CAGE Questionnaire Score 0 024 Utilities Answer Date Recorded In the past 12 months has e [employer], gas, oil, or water [employer] threatened to shut off services in your [...] F) 01/19/2025 9:48 AM EDT Respiratory Rate 16 11/20/2023 11:12 AM EDT Oxygen Saturation 94% 01/19/2025 9:48 AM EDT Inhaled Oxygen Concentration - - Weight 81.3 kg (179 lb 3.7 oz) 01/19/2025 9:48 A M EDT Height 167.6 cm (5' 6 ) 01/19/2025 9:48 AM EDT Body Mass Index 28.93 01/19/2025 9:48 AM EDT Plan of Treatment Upcoming Encounters Date Type Department Care Team ([facility] st Contact Info) Description 07/20/2025 10:40 AM EDT Office Visit [facility] Nephrology, Bone & Mineral Metabolism [address], [address] [place] [address] Gutierrez Domínguez MD [address] [place] [phone] Health Maintenance Due Date Last Done Comments [facility]-Bone Density Scan 1950 [facility]-Infant/Child/Adol SDOH Screenings 1950 [facility]- SDOH Screenings 09/26/1969 [facility]-Adult SDOH Screenings 09/26/1969 [facility]-DTaP,Tdap,and Td Vaccines (1 - Tdap) 09/26/1970 CT Colonography 09/26/1996 FIT-DNA 09/26/1996 FIT 09/26/1996 FOBT 09/26/1996 [facility]-Breast Cancer Screening 09/26/2001 [facility]-Zoster Vaccines (1 of 2) 09/26/2001 [facility]-Medicare Annual Wellness (AWV) 03/13/2023 03/13/2022 [facility]-Depression Screening 03/27/2024 03/27/2023 [id number]-89 Vaccine ( season) 2024 02/20/2024, 02/09/2023, 01/25/2022, Additional history exists Sigmoidoscopy 02/22/2028 02/21/2023, 02/21/2023 Colonoscopy 08/08/2032 08/08/2022, 10/2022, 12/07/2017 [facility]-Colorectal Cancer Screening 08/08/2032 [facility]-Hepatitis C Screening Completed 2023, 08/03/2022, 12/15/2021 [facility]-RSV Vaccine: 60+ Years or Completed 02/20/2024 [facility]-Influenza Vaccine Completed 01/15/2025 , 02/20/2024, 02/09/2023, Additional history exists [facility]-Pneumococcal Vaccine: 50+ Years Completed 01/15/2025, 02/14/2015 [facility]-Obesity Intervention Completed 025, 11/20/2023, 11/14/2023, Additional history exists HPV Vaccines Aged Out [...] Antigen Negative Negative 08/02/2023 7:49 PM EDT [facility] Hepatitis A Antibody IgM Negative Negative 08/02/2023 7:49 PM EDT [facility] Hepatitis B Core Antibody IgM Negative Negative 08/02/2023 7:49 PM EDT [facility] Blood Venous blood specimen [...] MD LAB BLOOD ORDERABLES Final R esult [facility] [address] [place] [address] * Flexible Sigmoidoscopy (02/21/2023 10:25 AM EST) [...] Misti Page MD Adam Rooks, MD Proceduralist osteopathic resident Adama Montes, Chika Peterson CRNA, RN Endo Nurse Butch Little MD Fellow Tete Whitmore Endo Candle Molder Hand Preprocedure A history and physical has been [...] of bowel preparation was evaluated using the Tyler Bowel Preparation Scale with scores of: left [...] of bowel preparation was evaluated using the Tyler Bowel Preparation Scale with scores of: right [...] of the obstruction could not be ascertained. us Chilo Biswas MD GI PROCEDURE ORDERABLES Lillie l Result from Last 3 Months or Most Recently Relevant to Health Maintenance Insurance MEDICARE GENERIC [employer] Advance Directives * Full Code (Latest Code [...] Patient has decision-making capacity? Yes Care Teams Egg Processor Relationship Specialty Start Date End Date Timothy Granda DO [address] [place] [address] PCP - General 05/25/23
--- OUTSIDE RECORDS SUMMARY | 2025-01-25 13:50 | XMS_ITS | Clinical Summary ---
Author Organization [facility] Address [address] [place] [address] Phone Care Team Providers Care Accounts Payables Clerk Name Role Phone Tosin VARGAS, Chandra Flores Unavailable [phone] Chel VARGAS, Davidson Unavailable [phone] Timothy Granda Primary Care Provider Unavailabl e Reason for Visit and Chief Complaint The Chief Complaint is: L hip pain Problems Includes: Problems addressed during this encounter and other active Problems All Visits Onset Date Resolved Date Provider Condition S tatus Joint Pain Shoulder Left 03/16/2023 Funmi Robles PA-C Active Last Documented On 3 10:30AM ; [facility] Joint Pain Left Knee 03/31/2022 Jesus giles MD Active Last Documented On 2 10:01AM ; [facility] Joint Pain Right Knee 02/12/2019 Timothy dye MD Active Last Documented On 9 10:35AM ; [facility] Joint Pain Hip Right 02/12/2019 Timothy Foster MD Active Last Documented On 9 10:35AM ; [facility] Joint Pain Shoulder 05/29/2018 Bautista christie MD Active Last Documented On 9 10:31AM ; [facility] Plan of Treatment - Patient screened for future fall risk: documentation of any fall with injury in past year - Last Documented On 06/16/2024 1:41PM ; [facility] Fall Risk Assessment: This patient has [...] - Last Documented On 06/16/2024 1:41PM ; [facility] Instructions to patient Lose weight Last Documented On 12:49PM ; [facility] Lose weight Last Documented On 12:50PM ; [facility] Assessments Includes: Assessments from this encounter [...] - Last Documented On 06/16/2024 1:41PM ; [facility] Instructions Includes: Instructions from this encounter Instructions to patient Lose weight Last Documented On 5 12:49PM ; [facility] Lose weight Last Documented On 5 12:50PM ; [facility] Medical Equipment - Implanted Devices Includes: Current Devices No Medical Equipment Recorded Medications Includes: Medications discussed during this encounter and other current Medications Current Medications (continue as prescribed) Acyclovir 400 MG Oral Tablet 01/27/2024 Provider: Diagnosis: Last Documented On 4 2:44PM By Karen Sawyer [facility] oxyCODONE HCl 10 MG Oral Tablet 01/22/2024 Provider: Diagnosis: Last Documented On 4 2:44PM By Karen Ornelas ; [facility] Dicyclomine HCl 10 MG Oral Capsule 01/22/2024 Provid er: CASTILLO ESPINO II, MD Diagnosis: Last Documented On 4 2:44PM By Karen Ornelas ; [facility] tiZANidine HCl 4 MG Oral Tablet 01/18/2024 Provider: Diagnosis: Last Documented On 4 2:44PM By Karen Ornelas ; [facility] Sulfamethoxazole-Trimethoprim 400-80 MG Oral Tablet Provider: Diagnosis: Last Documented On 4 2:44PM By Karen Ornelas ; [facility] DULoxetine HCl 60 MG Oral Capsule Delayed Releas e Particles 01/18/2024 Provider: Diagnosis: Last Documented On 4 2:44PM By Karen Ornelas ; [facility] HYDROmorphone HCl 4 MG Oral Tablet 01/08/2024 Provid er: Diagnosis: Last Documented On 4 2:44PM By Karen Ornelas ; [facility] Fluticasone-Salmeterol 100-5 0 MCG/ACT Inhalation Aerosol Powder Breath Activated 01/08/2024 Provider: Diagnosis: Last Documented On 4 2:44PM By Karen Ornelas ; [facility] Atorvastatin Calcium 40 MG Oral Tablet 01/08/2024 Pr ovider: Diagnosis: Last Documented On 4 2:44PM By Karen Ornelas ; [facility] Levothyroxine Sodium 25 MCG Oral Tablet 12/31/2023 P rovider: Diagnosis: Last Documented On 4 2:44PM By Karen Ornelas ; [facility] Eliquis 5 MG Oral Tablet 12/31/2023 Provider: Diagnosis: Last Documented On 4 2:44PM By Karen Ornelas ; [facility] Atorvastatin Calcium 20 MG Oral Tablet 12/31/2023 Pr ovider: Diagnosis: Last Documented On 4 2:44PM By Karen Ornelas ; [facility] amLODIPine Besylate 5 MG Oral Tablet 12/10/2023 Prov ider: Diagnosis: Last Documented On 4 2:44PM By Karen Ornelas ; [facility] Albuterol Sulfate 108 (90 Ba se) MCG/ACT Inhalation Aerosol Powder Breath Activated 06/15/2022 Provider: Diagnosis: Last Documented On 3 8:21AM By Merari Parson ; [facility] Cymbalta 20 MG Oral Capsule Delayed Release Particles 06/15/2022 Provider: Diagnosis: Last Documented On 3 8:21AM By Merari Parson ; [facility] Estradiol 0.1 MG/GM Vaginal Cream 06/15/2022 Provide r: Diagnosis: Last Documented On 3 9:04AM By Merari Parson ; [facility] Retin-A 0.1% External Cream 06/15/2022 Provider: Diagnosis: Last Documented On 3 9:03AM By Merari Parson ; [facility] Nystatin-Triamcinolone 457333-1.1 UNIT/GM-% External C ream 06/15/2022 Provider: Diagnosis: Last Documented On 3 9:02AM By Merari Parson ; [facility] Triamcinolone Acetonide 0.1% External Cream 06/15/2022 Provider: Diagnosis: Last Documented On 3 8:29AM By Merari Parson ; [facility] oxyCODONE HCl 10 MG Oral Tablet 06/15/2022 Provider: Diagnosis: Last Documented On 3 8:27AM By Merari Parson ; [facility] Losartan Potassium 50 MG Oral Tablet 06/15/2022 Prov ider: Diagnosis: Last Documented On 3 8:26AM By Merari Parson ; [facility] Fluticasone-Salmeterol 250-5 0 MCG/ACT Inhalation Aerosol Powder Breath Activated 06/15/2022 Provider: Diagnosis: Last Documented On 3 8:25AM By Merari Parson ; [facility] Diphenoxylate-Atropine 2.5-0.025 MG Oral Tablet 2022 Provider: Diagnosis: Last Documented On 3 8:22AM By Merari Parson ; [facility] Acyclovir 400 MG Oral Tablet 10/05/2020 Provider: Diagnosis: Last Documented On 1 3:19PM By Adele Trevino ; [facility] Past Medications on file oxyCODONE HCl 5 MG Oral Tablet 07/19/2022 - 07/29/2022 Provider: Jesus Zimmer MD Diagnosis: Take 1 tablet by mouth every 4-6 hrs for break through pain Last Documented On 3 11:00AM By Jesus Espinosa ; [facility] Meloxicam 15 MG Oral Tablet 07/03/2022 - 07/17/2022 Pr ovider: Jesus Espinosa MD Diagnosis: once a day Last Documented On 3 8:45AM By Barbara Correa ; [facility] Ondansetron HCl 4 MG Oral Tablet 06/30/2022 - 07/07/2022 Provider: Jesus Zimmer MD Diagnosis: 1 po q 6h prn nausea Last Documented On 3 1:35PM By Jesus Espinosa ; [facility] oxyCODONE HCl 5 MG Oral Tablet 06/30/2022 - 07/10/2022 Provider: Jesus Zimmer MD Diagnosis: Take 1 tablet by mouth every 4-6 hrs for break through pain Last Documented On 3 1:35PM By Jesus Espinosa ; [facility] Acetaminophen 500 MG Oral Tablet 06/30/2022 - 07/14/2022 Provider: Jesus Zimmer MD Diagnosis: Take 2 tablets by mouth every 8 hours Last Documented On 3 1:35PM By Jesus Espinosa ; [facility] Cefadroxil 500 MG Oral Capsule 06/30/2022 - 07/07/2022 Provider: Jesus Zimmer MD Diagnosis: Take 1 tablet by mouth every 12 hours for 7 days Last Documented On 3 1:35PM By Jesus Espinosa ; [facility] Aspirin EC 81 MG Oral Tablet Delayed Release 06/30/2022 - 08/11/2022 Provider: Jesus Espinosa MD Diagnosis: Take 1 tablet by mouth every 12 hours for 42 days post op Last Documented On 3 1:35PM By Jesus Sawyer [facility] Vitamin D3 50 MCG (1999 [place]) Oral Tablet 06/20/2022 - 07/20/2022 Provider: Diana ABDI Diagnosis: once a day Last Documented On 3 1:03PM [facility] cloNIDine HCl 0.1 MG Oral Tablet 10/05/2020 - 11/05/19 Provider: Diagnosis: Last Documented On 1 3:16PM By Adele Sawyer [facility] Atorvastatin Calcium 20 MG O ral Tablet 10/05/2020 - 11/04/2020 Provider: MADI CHAPIN MD Diagnosis: Last Documented On 1 3:18PM By Adele Sawyer [facility] Medications Administered Includes: Administered Medications from this encounter No Administered Medications Recorded Vital Signs Includes: Vital Signs from this encounter Vital Name 06/16/2024 01:12P Height (in) 62 Weight (lb) 160 Body Mass Index 29.3 Body Surface Area 1.7 Note: ethel Last Documented: On 06/16/2024 1:12PM ; [facility] Results Includes: Results discussed during this [...] total hip replacement done in 2007 in [place]. She states she is having groin pain [...] 01/30/2024 Last Documented On 5 12:49PM ; [facility] Not a current smoker. 01/30/2024 Last Documented On 5 12:49PM ; [facility] Tobacco non-user 02/17/2022 Last Documented On 5 12:49PM ; [facility] Caffeine use 10/05/2020 Last Documented On 5 12:49PM ; [facility] Exercising regularly 10/05/2020 Last Documented On 5 12:49PM ; [facility] No recent change in diet 10/05/2020 Last Documented On 5 12:49PM ; [facility] Not a current smoker. 10/05/2020 Last Documented On 5 12:49PM ; [facility] Not using alcohol 10/05/2020 Last Documented On 5 12:49PM ; [facility] Not using drugs 10/05/2020 Last Documented On 5 12:49PM ; [facility] Non-smoker 10/05/2020 Last Documented On 5 12:49PM ; [facility] Not a current smoker 05/29/2018 Last Documented On 5 12:49PM ; [facility] No tobacco use 05/29/2018 Last Documented On 5 12:49PM ; [facility] Smoking status : Former smoker 9 Last Documented On 5 12:49PM ; [facility] Procedures and Surgical History Includes: Procedures from this encounter Procedures Code Diagnosis Performing Provider Service Location Service Date HIP BILATERAL [address]1154 Unilateral prima ry osteoarthritis, right hip, Trochanteric bursitis, left hip Jesus Espinosa MD [facility] 06/16/2024 Last Documented On 5 1:32PM ; [facility] use of tobacco assessment performed 1000F Last Documented On 5 12:49PM ; [facility] patient screened for future fall risk: documentation of any fall with injury in past year 1100F Last Documented On 5 12:49PM ; [facility] review of medications documented 1160F Last Documented On 5 12:49PM ; [facility] an X-ray was performed 39869 Last Documented On 5 12:49PM ; [facility] an MRI was performed 14820 Last Documented On 5 12:49PM ; [facility] Surgical History Last Updated History of History of Arthroscopy 2023 Last Documented On 5 12:48PM ; [facility], [facility] History of Previous Fractures 01/30/2024 Last Documented On 5 12:48PM ; [facility] History of total hip replacement 024 Last Documented On 5 12:48PM ; [facility] History of total knee arthroplasty 01/29 Last Documented On 5 12:48PM ; [facility] Past Surgical History: 03/16/2023 Last Documented On 5 12:48PM ; [facility] Medical History Includes: Medical History addressed during this encounter Description Last Updated History of asthma 01/30/2024 Last Documented On 5 12:48PM ; [facility] History of History of Blood Transfusion 01/30/2024 Last Documented On 5 12:48PM ; [facility] History of Hypertension 01/30/2024 Last Document[facility] 5 12:48PM ; [facility] of [facility] of Blood Clots 2022 Last Documented On 5 12:48PM ; [facility] Anemia 10/05/2020 Last Documented On 5 12:48PM ; [facility] Arthritis 10/05/2020 Last Documented On 5 12:48PM ; [facility] Recent immunization for flu 10/05/2020 Last Documented On 5 12:48PM ; [facility] Recent immunization for pneumococcal pne umonia 10/05/2020 Last Documented On 5 12:48PM ; [facility], [facility] arthroscopy ~total joint replacement ~hi gh cholesterol 05/29/2018 Last Documented On 5 12:48PM ; [facility] Arthritic joint problems 05/29/2018 Last Documented On 5 12:48PM ; [facility] History of depression 05/29/2018 Last Documented On 5 12:48PM ; [facility] History of hepatitis C 05/29/2018 Last Documented On 5 12:48PM ; [facility] Family History Includes: Family History addressed during this encounter Description Last Updated Family history of cancer 10/05/2020 Last Documented On 5 12:48PM ; [facility] Family history of osteoporosis Last Documented On 5 12:48PM ; [facility] Family history of thromboembolic disease 05/29/2018 Last Documented On 5 12:48PM ; [facility] No significant family history maternal- Breast cancer 05/29/2018 Last Documented On 5 12:48PM ; [facility] Review of Systems Includes: Review of [...] Active Last Documented On 06/16/2024 12:48PM ; [facility] Note: joint pain- Major fluoroquinolones Allergy 09/04/2018 Ac tive Last Documented On 5 12:48PM ; [facility] Encounters Encounter Provider Location Date Check-In Time Check- Out Time Diagnosis Follow Up Jesus Espinosa MD [facility] 5 12:43PM 1:40PM Insurance Includes: Active Insurance Policies Plan Name Member ID Group # Subscriber Relationship Effect sherman Dates 1 - Medicare Part B [facility] [id number] Farrah Atkinson Self 4 - Unknown 2 - [employer] [id number] Farrah Atkinson Self 05/03/2019 - Unknown Clinical Notes Includes: Clinical Notes from this encounter * Progress note Date Encounter Last Documented by 06/16/2024 Follow Up Last documented on 06/16/2024; 1:41 PM, Jesus Espinosa MD; [facility] Active Problems & Conditions - Joint [...] total hip replacement done in 2007 in [place]. She states she is having groin pain [...] directed 0 days, 0 refills - Nystatin-Triamcinolone 291850-1.1 UNIT/GM-% External Cream take as directed 0 [...] Care Team - Chandra Leahy MD - SPEECH LANGUAGE PATHOLOGIST TRAVEL
--- NOTE | 2025-01-25 13:52 | CT_ITS ---
PROCEDURE INFORMATION: Exam: CTA Chest With Contrast Exam date and time: 01/25/2025 3:17 PM Age: 74 years old Clinical indication: Injury or trauma; Additional info: SOA AMS TECHNIQUE: Imaging protocol: Computed tomographic angiography of the chest with contrast. Exam focused on the arteries. 3D rendering (Not supervised by radiologist): MIP and/or 3D reconstructed images were created by the technologist. Radiation optimization: All CT scans at this facility use at least one of these dose optimization techniques: automated exposure control; mA and/or kV adjustment per patient size (includes targeted exams where dose is matched to clinical indication); or iterative reconstruction. Contrast material: ISO 370; Contrast volume: 70 ml; Contrast route: INTRAVENOUS (IV); COMPARISON: CR XR CHEST PORTABLE 11/28/2024 12:04 AM FINDINGS: Pulmonary arteries: Negative for acute pulmonary embolism. Aorta: Unremarkable. No aortic aneurysm. No aortic dissection. Lungs: Calcified granulomas in the left upper lobe. No focal consolidation. Pleural spaces: Unremarkable. No pneumothorax. No pleural effusion. Heart: Unremarkable. No cardiomegaly. No pericardial effusion. Lymph nodes: Unremarkable. No enlarged lymph nodes. Bones/joints: Unremarkable. No acute fracture. Soft tissues: Unremarkable. IMPRESSION: Negative for acute pulmonary embolism.
--- NOTE | 2025-01-25 13:52 | ED_ITS ---
<Statement entered by Edison May MD - 01/25/25 19:42> I was consulted by the LV, and we discussed the complexity of the problems being addressed. I approve the treatment and management plan for this patient's care in the emergency department, thus performing a substantive portion of the medical decision making. Patient's care was ultimately transferred to oncoming physician, Dr. Berry, and MARCIA Fernandez pending completion of her workup and ultimate disposition. Edison May MD Discharge Plan Disposition Patient Disposition: Admitted Condition: Critical Clinical Impressions Clinical Impression: AMS (altered mental status) Discharge ED Provider: Edison May General Adult HPI <Linda Fernandez APRN - Last Filed: 01/25/25 18:32> General Chief complaint: Altered Mental Status Stated complaint: AMS Time Seen by Provider: 01/25/25 13:40 Mode of Arrival: EMS Source of Information: EMS Description of Symptoms (Recalled from ER Triage Doc. by RN): Pt presents via EMS from home for evaluation of altered mental status. PT is a GCS 14. Pt was found down between the bath tub and toilet. Unknown downtime. Unknown blood thinner status, unknown LOC. Pt o2 was initially 80% on room air, NRB applied o2 now 95%. HR ranged from 130-140. BGL 220. Pt combative at time History of Present Illness HPI narrative: patient is a 71 year old female PMHx CKD, HTN, HLD, constipation, colostomy, chronic opioid use, who presents to the emergency department after being found down. EMS reports patient was AMS, hypotensive and hypoxic in low 80s, EMS placed patient on 15L nonrebreather, they report her found her. Related Data Home Medications ?Medication ?Instructions ?Recorded ?Confirmed aripiprazole 2 mg tablet 2 mg PO DAILY 05/09/2401/15 ciclopirox 0.77 % topical gel 1 applic topical DAILY 0 11/30/24 01/15/25 Held on 01/28/25. Instructions: Deferring continuation of medication to accepting facility due to current state of altered mental status. Oral medications currently are not appropriate due to her mentation state. Will defer as noted. dicyclomine 10 mg capsule 10 mg PO TIDP PRN abdominal pain 11/30/24 01/15/25 Held on 01/28/25. Instructions: Deferring continuation of medication to accepting facility due to current state of altered mental status. Oral medications currently are not appropriate due to her mentation state. Will defer as noted. duloxetine 60 mg capsule,delayed 120 mg PO DAILY 11/3001/15/25 release Held on 01/28/25. Instructions: Deferring continuation of medication to accepting facility due to current state of altered mental status. Oral medications currently are not appropriate due to her mentation state. Will defer as noted. estradiol 0.25 mg/0.25 gram (0.1 1 packet transdermal DAILY 01/08/25 01/15/25 %) transdermal gel packet Previous Rx's ?Medication ?Instructions ?Recorded amitriptyline 50 mg tablet 50 mg PO HS #30 tabs ergocalciferol (vitamin D2) 1,250 1,250 mcg PO WEEKLY #4 caps 07/07/24 mcg (50,000 unit) capsule atorvastatin 40 mg tablet 40 mg PO DAILY #90 tabs 09/30 10/24 diphenoxylate-atropine 2.5 1 tab PO TID 90 days #270 t abs 11/26/24 mg-0.025 mg tablet tizanidine 4 mg tablet See Rx Instructions .Route 1 .COMPLEX #90 ea furosemide 40 mg tablet 40 mg PO DAILYP PRN Edema #3 0 tabs 01/02/25 clonidine HCl 0.1 mg tablet See Rx Instructions .Route 01/07/25 .COMPLEX #180 tabs hydromorphone 4 mg tablet 4 mg PO Q4HP PRN Severe Pain 01/08/25 (Scale Score 7-10) #60 tabs nystatin 100,000 unit/gram topical 1 applic topical BI D Rash #30 grams 01/08/25 cream oxycodone 10 mg tablet 10 mg PO Q4HP PRN Moderate P ain 01/08/25 (Scale Score 5-6) #180 tabs sulfamethoxazole 400 1 tab PO DAILY 90 days #90 t abs 01/08/25 mg-trimethoprim 80 mg tablet tretinoin 0.05 % topical cream 1 applic topical HS #45 grams 01/08/25 (Retin-A) amlodipine 5 mg tablet 5 mg PO HS #90 tabs 01/11/25 levothyroxine 25 mcg tablet 25 mcg PO DAILY #90 tabs 1 losartan 50 mg tablet 75 mg (1.5 x 50 mg) PO DAILY #135 01/11/25 tabs sulfamethoxazole 800 1 tab PO BID 5 days #10 tabs 01/12/25 mg-trimethoprim 160 mg tablet Allergies Allergy/AdvReac Type Severity Reaction Status Date / Time ciprofloxacin (From Cipro) Allergy Intermediate Muscle Pain Verified 01/15/25 11:20 levofloxacin (From Levaquin) AdvReac Rash Verified 01/15/25 11:20 <Evelyne Berry DO - Last Filed: 01/28/25 21:48> History of Present Illness HPI narrative: Patient is a 71 year old female PMHx CKD, HTN, HLD, constipation, colostomy, chronic opioid use, who presents to the emergency department after being found down. EMS reports patient was AMS, hypotensive and hypoxic in low 80s, EMS placed patient on 15L nonrebreather, they report her found her. [facility] <Linda Fernandez APRN - Last Filed: 01/25/25 18:32> [facility] Disclaimer: The information contained in this section may have been updated after the patient was seen, as this information can be updated by other users. Medical History Left foot pain Right foot injury Chronic kidney disease TIP (acute kidney injury) Systolic murmur Bowel wall thickening Ischemic bowel disease Hypertension Paroxysmal atrial fibrillation Aftercare following bilateral knee joint replacement surgery C. difficile diarrhea Colostomy in place Perforated sigmoid colon Elevated liver enzymes Ileus Abnormal electrocardiogram [ECG] [EKG] Abdominal pain Hypothyroidism IBS (irritable bowel syndrome) HLD (hyperlipidemia) HTN (hypertension), benign Hypokalemia Hypokalemia due to loss of potassium Surgical History H/O ileostomy History of total right hip replacement History of arthroscopy of left shoulder Family History Other Anemia Asthma Cancer Hyperlipidemia Social History Smoking Status: Never smoker second hand exposure: No alcohol intake: never current occupational status: retired Travel in the last 8 weeks?: None household members: spouse housing: house marital status: current occupational exposures/hazards: No caffeine: No Have you lived/traveled outside [place] in past 30 days?: No Contact w/someone who lives/traveled outside US past 30 days?: No Exposure to someone with infectious disease in past 14 days?: No Do you have a fever (greater than 100.4 F or 38 C)?: No Have you tested positive for COVID-19?: No Exposed to someone with COVID-19 in past 14 days?: No Do you have a sore throat?: No Do you have a cough?: No Do you have any weakness?: No Are you experiencing any nausea/vomitting?: No Do you have any diarrhea?: No Are you experiencing any unusual bleeding?: No Do you have any muscle aches/pain?: No Do you have any abdominal pain?: No Are you experiencing loss of taste or smell?: No Other Medical History Have you received the Flu Vaccine for this season: No Have you received the Pneumonia Vaccine: Yes <Linda Fernandez APRN - Last Filed: 01/25/25 18:32> ROS Obtained: Yes Systems reviewed as appropriate & no additional complaints except as documented <Evelyne Berry DO - Last Filed: 01/28/25 21:48> ROS Obtained: Yes All systems reviewed & no additional complaints except as documented Physical Exam <Linda Fernandez APRN - Last Filed: 01/25/25 18:32> General General appearance: alert Eye Eye exam: Present other (small but reactive ) Chest Chest inspection: Present normal inspection Respiratory Respiratory exam: Present normal lung sounds bilaterally Cardiovascular Cardiovascular exam: Present tachycardia Abdominal Exam Abdominal exam: Present soft and tenderness (generalized, colostomy ) Neurological Exam Neurological exam: Present alert; Absent oriented X3 Skin Skin exam: Present other (diaphoretic ) <Evelyne Berry DO - Last Filed: 01/28/25 21:48> General General appearance: other (confused) Head Head exam: atraumatic and normocephalic Chest Chest inspection: Present symmetric chest wall rise; Absent tenderness Respiratory Respiratory exam: Absent respiratory distress or wheezes Cardiovascular Cardiovascular exam: Present regular rate Abdominal Exam Abdominal exam: Absent distention Back Exam Back exam: Present other (moving all extremities spontaneously) Medical Decision Making <Linda Fernandez APRN - Last Filed: 01/25/25 18:32> Medical Records Screening: Per USPSTF and CDC recommendations, given the prevalence of disease in our region, it is our hospital?s policy to screen for HIV and viral Hepatitis for all patients aged 18 and over and those with ongoing risk factors. Beto Inquiry Pt receiving controlled substance: No Vital Signs: 01/25/25 13:40 01/25/25 13:40 01/25/25 13:45 Temperature 97.9 F Temperature Source Temporal Artery Scan Pulse Rate 124 H Pulse Rate [Right] 121 H Respiratory Rate 18 21 Blood Pressure Blood Pressure [Right Arm] 217/97 H Blood Pressure Mean Blood Pressure Mean [Right Arm] 137 Blood Pressure Source Blood Pressure Source [Right Arm] Automatic Cuff Blood Pressure Position Blood Pressure Position [Right Arm] Sitting 02 Sat by Pulse Oximetry 100 100 Oxygen Delivery Method Room Air Oxygen Flow Rate (LPM) 01/25/25 13:47 01/25/25 13:57 01/25/25 14:00 Temperature Temperature Source Pulse Rate 115 H 115 H Pulse Rate [Right] Respiratory Rate 20 36 H 21 Blood Pressure 217/97 H 221/94 H 221/108 H Blood Pressure [Right Arm] Blood Pressure Mean Blood Pressure Mean [Right Arm] Blood Pressure Source Blood Pressure Source [Right Arm] Blood Pressure Position Blood Pressure Position [Right Arm] 02 Sat by Pulse Oximetry 100 100 Oxygen Delivery Method Oxygen Flow Rate (LPM) 01/25/25 14:00 01/25/25 14:30 01/25/25 14:47 Temperature Temperature Source Pulse Rate 118 H 127 H Pulse Rate [Right] Respiratory Rate 13 16 Blood Pressure 223/104 H 201/96 H Blood Pressure [Right Arm] Blood Pressure Mean Blood Pressure Mean [Right Arm] Blood Pressure Source Blood Pressure Source [Right Arm] Blood Pressure Position Blood Pressure Position [Right Arm] 02 Sat by Pulse Oximetry 98 98 99 Oxygen Delivery Method Room Air Oxygen Flow Rate (LPM) 01/25/25 15:23 01/25/25 15:30 01/25/25 16:02 Temperature Temperature Source Pulse Rate 120 H 122 H Pulse Rate [Right] Respiratory Rate 13 18 23 Blood Pressure 211/98 H 228/98 H 151/114 H Blood Pressure [Right Arm] Blood Pressure Mean Blood Pressure Mean [Right Arm] Blood Pressure Source Blood Pressure Source [Right Arm] Blood Pressure Position Blood Pressure Position [Right Arm] 02 Sat by Pulse Oximetry 100 99 100 Oxygen Delivery Method Room Air Oxygen Flow Rate (LPM) 01/25/25 16:11 01/25/25 16:30 01/25/25 17:00 Temperature Temperature Source Pulse Rate 131 H 121 H 122 H Pulse Rate [Right] Respiratory Rate 18 21 12 Blood Pressure 143/102 H 156/102 H 177/102 H Blood Pressure [Right Arm] Blood Pressure Mean Blood Pressure Mean [Right Arm] Blood Pressure Source Blood Pressure Source [Right Arm] Blood Pressure Position Blood Pressure Position [Right Arm] 02 Sat by Pulse Oximetry 99 96 96 Oxygen Delivery Method Room Air Oxygen Flow Rate (LPM) 01/25/25 17:15 01/25/25 17:16 01/25/25 17:21 Temperature Temperature Source Pulse Rate 141 H 148 H Pulse Rate [Right] Respiratory Rate 37 H 38 H 41 H Blood Pressure 238/108 H 247/107 H 234/106 H Blood Pressure [Right Arm] Blood Pressure Mean Blood Pressure Mean [Right Arm] Blood Pressure Source Blood Pressure Source [Right Arm] Blood Pressure Position Blood Pressure Position [Right Arm] 02 Sat by Pulse Oximetry 100 100 99 Oxygen Delivery Method Room Air Room Air Oxygen Flow Rate (LPM) 01/25/25 17:30 01/25/25 17:36 01/25/25 17:38 Temperature Temperature Source Pulse Rate 148 H 143 H Pulse Rate [Right] Respiratory Rate 35 H 32 H Blood Pressure 213/146 H 211/118 H 181/89 H Blood Pressure [Right Arm] Blood Pressure Mean Blood Pressure Mean [Right Arm] Blood Pressure Source Blood Pressure Source [Right Arm] Blood Pressure Position Blood Pressure Position [Right Arm] 02 Sat by Pulse Oximetry 97 97 Oxygen Delivery Method Oxygen Flow Rate (LPM) 01/25/25 17:40 01/25/25 17:45 01/25/25 17:50 Temperature Temperature Source Pulse Rate 114 H 107 H 101 H Pulse Rate [Right] Respiratory Rate 28 H 25 H 31 H Blood Pressure 181/89 H 205/100 H 210/95 H Blood Pressure [Right Arm] Blood Pressure Mean Blood Pressure Mean [Right Arm] Blood Pressure Source Blood Pressure Source [Right Arm] Blood Pressure Position Blood Pressure Position [Right Arm] 02 Sat by Pulse Oximetry 90 L 90 L 91 L Oxygen Delivery Method Oxygen Flow Rate (LPM) 01/25/25 17:55 01/25/25 18:00 01/25/25 18:06 Temperature Temperature Source Pulse Rate 103 H 103 H Pulse Rate [Right] Respiratory Rate 25 H 23 11 L Blood Pressure 203/104 H 216/105 H 228/94 H Blood Pressure [Right Arm] Blood Pressure Mean Blood Pressure Mean [Right Arm] Blood Pressure Source Blood Pressure Source [Right Arm] Blood Pressure Position Blood Pressure Position [Right Arm] 02 Sat by Pulse Oximetry 88 L 95 Oxygen Delivery Method Oxygen Flow Rate (LPM) 01/25/25 18:11 01/25/25 18:15 01/25/25 18:20 Temperature Temperature Source Pulse Rate Pulse Rate [Right] Respiratory Rate 15 12 8 L Blood Pressure 203/136 H 199/116 H 217/127 H Blood Pressure [Right Arm] Blood Pressure Mean Blood Pressure Mean [Right Arm] Blood Pressure Source Blood Pressure Source [Right Arm] Blood Pressure Position Blood Pressure Position [Right Arm] 02 Sat by Pulse Oximetry Oxygen Delivery Method Oxygen Flow Rate (LPM) 01/25/25 18:24 01/25/25 18:27 01/25/25 18:30 Temperature Temperature Source Pulse Rate Pulse Rate [Right] Respiratory Rate 10 L 9 L 12 Blood Pressure 219/129 H 151/121 H 149/97 H Blood Pressure [Right Arm] Blood Pressure Mean Blood Pressure Mean [Right Arm] Blood Pressure Source Blood Pressure Source [Right Arm] Blood Pressure Position Blood Pressure Position [Right Arm] 02 Sat by Pulse Oximetry Oxygen Delivery Method Oxygen Flow Rate (LPM) 01/25/25 18:36 01/25/25 18:45 01/25/25 18:46 Temperature Temperature Source Pulse Rate 101 H 99 H Pulse Rate [Right] Respiratory Rate 10 L 17 20 Blood Pressure 149/81 H 137/115 H 182/98 H Blood Pressure [Right Arm] Blood Pressure Mean Blood Pressure Mean [Right Arm] Blood Pressure Source Blood Pressure Source [Right Arm] Blood Pressure Position Blood Pressure Position [Right Arm] 02 Sat by Pulse Oximetry 100 100 Oxygen Delivery Method Oxygen Flow Rate (LPM) 01/25/25 18:50 01/25/25 19:00 01/25/25 19:01 Temperature Temperature Source Pulse Rate 100 H 110 H Pulse Rate [Right] Respiratory Rate 20 11 L Blood Pressure 185/95 H 188/159 H Blood Pressure [Right Arm] Blood Pressure Mean 168 Blood Pressure Mean [Right Arm] Blood Pressure Source Blood Pressure Source [Right Arm] Blood Pressure Position Blood Pressure Position [Right Arm] 02 Sat by Pulse Oximetry 99 97 Oxygen Delivery Method Room Air Oxygen Flow Rate (LPM) 01/25/25 19:01 01/25/25 19:05 01/25/25 19:05 Temperature Temperature Source Pulse Rate 108 H Pulse Rate [Right] Respiratory Rate 12 12 Blood Pressure 180/80 H Blood Pressure [Right Arm] Blood Pressure Mean 113 Blood Pressure Mean [Right Arm] Blood Pressure Source Blood Pressure Source [Right Arm] Blood Pressure Position Blood Pressure Position [Right Arm] 02 Sat by Pulse Oximetry 98 Oxygen Delivery Method Oxygen Flow Rate (LPM) 01/25/25 19:10 01/25/25 19:10 01/25/25 19:15 Temperature Temperature Source Pulse Rate Pulse Rate [Right] Respiratory Rate 18 18 Blood Pressure 201/94 H Blood Pressure [Right Arm] Blood Pressure Mean 123 Blood Pressure Mean [Right Arm] Blood Pressure Source Blood Pressure Source [Right Arm] Blood Pressure Position Blood Pressure Position [Right Arm] 02 Sat by Pulse Oximetry Oxygen Delivery Method Oxygen Flow Rate (LPM) 01/25/25 19:16 01/25/25 19:16 01/25/25 19:20 Temperature Temperature Source Pulse Rate 102 H Pulse Rate [Right] Respiratory Rate 19 13 Blood Pressure 191/90 H Blood Pressure [Right Arm] Blood Pressure Mean 123 Blood Pressure Mean [Right Arm] Blood Pressure Source Blood Pressure Source [Right Arm] Blood Pressure Position Blood Pressure Position [Right Arm] 02 Sat by Pulse Oximetry 99 Oxygen Delivery Method Oxygen Flow Rate (LPM) 01/25/25 19:20 01/25/25 19:26 01/25/25 19:26 Temperature Temperature Source Pulse Rate 107 H Pulse Rate [Right] Respiratory Rate 15 Blood Pressure 195/92 H 176/85 H Blood Pressure [Right Arm] Blood Pressure Mean 127 126 Blood Pressure Mean [Right Arm] Blood Pressure Source Blood Pressure Source [Right Arm] Blood Pressure Position Blood Pressure Position [Right Arm] 02 Sat by Pulse Oximetry 100 Oxygen Delivery Method Oxygen Flow Rate (LPM) 01/25/25 19:30 01/25/25 19:45 01/25/25 19:55 Temperature Temperature Source Pulse Rate 103 H Pulse Rate [Right] Respiratory Rate 20 21 Blood Pressure 188/102 H Blood Pressure [Right Arm] Blood Pressure Mean 132 Blood Pressure Mean [Right Arm] Blood Pressure Source Blood Pressure Source [Right Arm] Blood Pressure Position Blood Pressure Position [Right Arm] 02 Sat by Pulse Oximetry 93 L Oxygen Delivery Method Oxygen Flow Rate (LPM) 01/25/25 19:55 01/25/25 20:00 01/25/25 20:01 Temperature Temperature Source Pulse Rate 110 H 114 H Pulse Rate [Right] Respiratory Rate 17 12 Blood Pressure 187/117 H Blood Pressure [Right Arm] Blood Pressure Mean 140 Blood Pressure Mean [Right Arm] Blood Pressure Source Blood Pressure Source [Right Arm] Blood Pressure Position Blood Pressure Position [Right Arm] 02 Sat by Pulse Oximetry 96 99 Oxygen Delivery Method Oxygen Flow Rate (LPM) 01/25/25 20:07 01/25/25 20:07 01/25/25 20:11 Temperature Temperature Source Pulse Rate Pulse Rate [Right] Respiratory Rate 15 Blood Pressure 149/128 H 176/113 H Blood Pressure [Right Arm] Blood Pressure Mean 133 134 Blood Pressure Mean [Right Arm] Blood Pressure Source Blood Pressure Source [Right Arm] Blood Pressure Position Blood Pressure Position [Right Arm] 02 Sat by Pulse Oximetry Oxygen Delivery Method Oxygen Flow Rate (LPM) 01/25/25 20:11 01/25/25 20:15 01/25/25 20:16 Temperature Temperature Source Pulse Rate Pulse Rate [Right] Respiratory Rate 12 12 Blood Pressure 195/81 H Blood Pressure [Right Arm] Blood Pressure Mean 119 Blood Pressure Mean [Right Arm] Blood Pressure Source Blood Pressure Source [Right Arm] Blood Pressure Position Blood Pressure Position [Right Arm] 02 Sat by Pulse Oximetry Oxygen Delivery Method Oxygen Flow Rate (LPM) 01/25/25 20:16 01/25/25 20:29 01/25/25 20:30 Temperature 97.9 F Temperature Source Oral Pulse Rate 110 H 108 H Pulse Rate [Right] Respiratory Rate 14 12 20 Blood Pressure 195/81 H 129/92 H Blood Pressure [Right Arm] Blood Pressure Mean Blood Pressure Mean [Right Arm] Blood Pressure Source Automatic Cuff Blood Pressure Source [Right Arm] Blood Pressure Position Supine Blood Pressure Position [Right Arm] 02 Sat by Pulse Oximetry 100 Oxygen Delivery Method Nasal Cannula Nasal Cannula Oxygen Flow Rate (LPM) 1 2 Lab Data Lab Results 01/25/25 14:30: WBC 19.7 H D, RBC 4.99, Hgb 14.7, Hct 44.6, MCV 89.4, MCH 29.5, MCHC 33.0, RDW 13.5, Plt Count 560 H D, MPV 9.2, Neut % (Auto) 93.8 H, Lymph % (Auto) 3.9 L, Bandera % (Auto) 1.4 L, Eos % (Auto) 0.0 L, Baso % (Auto) 0.3, Neut # (Auto) 18.5 H, Lymph # (Auto) 0.8, Bandera # (Auto) 0.3, Eos # (Auto) 0.0, Baso # (Auto) 0.1, ESR 15, PT 10.8, INR 0.97, APTT 22.5 L, VBG pH 7.37, VBG pCO2 33.6 L , VBG pO2 48.2 H, VBG HCO3 19.2 L, VBG Total CO2 20.2 L, VBG O2 Saturation 84.1 H, VBG Base Excess -6.1 L, VBG Lactic Acid 9.3 H, Sodium 135 L, Potassium 4.8, Chloride 98, Carbon Dioxide 20 L, Anion Gap 21.8 H, BUN 22 H, Creatinine 1.50 H D, Estimated Creat Clear 38, Estimated GFR 34 L, Est GFR ( Amer) 41 L D, Glucose 248 H D, Calcium 10.0, Magnesium 2.3, Total Bilirubin 0.4, AST 56 H D, A LT 59 D, Alkaline Phosphatase 179 H, Total Creatine Kinase 28 L 01/25/25 14:30: Total Creatine Kinase 27 L, Troponin I 0.02, NT-Pro-B Natriuret Pep 5100 H, Total Protein 8.9 H, Albumin 4.8, Globulin 4.1 H, Albumin/Globulin Ratio 1.2, Salicylates < 1.0 L, Acetaminophen < 10 L, Plasma/Serum Alcohol < 10 01/25/25 15:53: Urine Color Yellow, Urine Appearance Clear, Urine pH 5.5, Ur Specific [place] <= 1.005, Urine Protein Trace, Urine Glucose (UA) Negative, Urine Ketones Negative, Urine Blood Negative, Urine Nitrate Negative, Urine Bilirubin Negative, Urine Urobilinogen 0.2, Ur Leukocyte Esterase Negative, Urine RBC None, Urine WBC None, Ur Squamous Epith Cells None, Urine Bacteria None, Urine Opiates Screen Positive H, Urine Methadone Screen Negative, Ur Barbituates Screen Negative, Ur Phencyclidine Scrn Negative, Ur Amphetamines Screen Negative, U Benzodiazepines Scrn Positive H, Urine Cocaine Screen Negative, U Marijuana (THC) Screen Negative 01/25/25 16:45: Troponin I 0.03 01/25/25 16:46: VBG pH 7.48 H, VBG pCO2 24.4 L, VBG pO2 37.8, VBG HCO3 17.9 L, V BG Total CO2 18.7 L, VBG O2 Saturation 78.2 H, VBG Base Excess -5.5 L, VBG Lactic Acid 8.8 H 01/25/25 19:55: CSF Volume 9.5 01/25/25 19:55: CSF Volume 9.5, CSF Appearance Clear 01/25/25 19:55: CSF Appearance Clear, CSF WBC 2 01/25/25 19:55: CSF WBC 1, CSF RBC 1 01/25/25 19:55: CSF RBC 1, CSF Mononuclear WBCs % 8 01/25/25 19:55: CSF Mononuclear WBCs % 7, CSF Polynuclear WBCs % 2 01/25/25 19:55: CSF Polynuclear WBCs % 1, CSF Glucose 105 H, CSF Total Protein 100.0 H 01/25/25 19:55: CSF Total Protein 98.0 H, CSF Cryptococcus Ag Negative, CSF Cryptoco Ag Clt Rfx Not indicated 01/25/25 14:30 01/25/25 14:30 Orders (Tests/Meds): ED MEDICATIONS Discontinued Medications Generic Name Dose Route Start Last Admin Trade Name Freq PRN Reason Stop Dose Admin Sodium Chloride 1,000 mls @ 999 mls/hr 01/25/25 13:59 01/25/25 16:15 Sod Chlor 0.9% 1000ml Bag IV 01/25/25 14:59 Infused .Q1H1M ONE Infusion Piperacillin Sod/Tazobactam 50 mls @ 100 mls/hr 01/25/25 15:09 01/25/25 17:43 Sod 3.375 gm/ Sodium Chloride IV 01/25/25 15:38 Infused ONCE ONE Infusion Vancomycin/PEG/NADA/Lysine/Water 1.5 gm in 300 mls @ 150 mls/hr 01/25/25 15:30 01/25/25 22:47 Vancomycin 1.5gm/300ml (Peg) Premix IV 01/25/25 17:29 Infused ONCE ONE Infusion Piperacillin Sod/Tazobactam 50 mls @ 100 mls/hr 01/25/25 16:25 01/25/25 22:46 Sod 3.375 gm/ Sodium Chloride IV 01/25/25 16:54 Infused Q8H ONE Infusion Levetiracetam 2,000 mg/ Sodium 120 mls @ 240 mls/hr 01/25/25 17:35 01/25/25 19:17 Chloride IV 01/25/25 17:36 Infused ONCE ONE Infusion Acyclovir Sodium 600 mg/ 250 mls @ 250 mls/hr 01/25/25 18:45 01/25/25 22:46 Sodium Chloride IV 02/01/25 18:44 Infused Q8H RACHEL Infusion Lactated Ringer's 1,000 mls @ 100 mls/hr 01/25/25 21:30 01/26/25 00:38 Lactated Ringer's 1000 Ml Bag IV 02/24/25 21:29 Infused .Q10H RACHEL Infusion Nicardipine HCl 25 mg/ Sodium 250 mls @ 50 mls/hr 01/25/25 22:05 01/26/25 00:38 Chloride IV 02/24/25 22:04 Infused .Q5H RACHEL Titration Protocol 5 MG/HR Ampicillin Sodium 2 gm/ Sodium 100 mls @ 200 mls/hr 01/25/25 22:44 01/26/25 00:42 Chloride IV 01/25/25 23:13 Infused ONCE ONE Infusion Iopamidol 70 ml 01/25/25 15:21 01/25/25 15:23 Iopamidol-370 (76%);100ml Bottle IV 01/25/25 15:22 70 ml ONCE ONE Administration Labetalol HCl 10 mg 01/25/25 15:54 01/25/25 17:38 Labetalol 20mg/4ml Syringe IV 01/25/25 15:55 10 mg ONCE ONE Administration Metoprolol Tartrate 5 mg 01/25/25 21:25 01/25/25 21:44 Metoprolol Tartrate 5mg/5ml Vial IV 01/25/25 21:26 5 mg ONCE ONE Administration Midazolam HCl 1 mg 01/25/25 14:50 01/25/25 14:52 Midazolam 2mg/2ml Vial IV 01/25/25 14:51 1 mg ONCE ONE Administration Midazolam HCl 2 mg 01/25/25 17:10 01/25/25 17:10 Midazolam 2mg/2ml Vial IM 01/25/25 17:11 2 mg ONCE ONE Administration Midazolam HCl 2 mg 01/25/25 17:19 01/25/25 17:19 Midazolam 2mg/2ml Vial IM 01/25/25 17:20 2 mg ONCE ONE Administration Midazolam HCl 1 mg 01/25/25 19:14 01/25/25 19:40 Midazolam 2mg/2ml Vial IV 01/25/25 19:15 1 mg ONCE ONE Administration Midazolam HCl 1 mg 01/25/25 19:52 01/25/25 19:59 Midazolam 2mg/2ml Vial IV 01/25/25 19:53 1 mg ONCE ONE Administration Miscellaneous 1 each 01/25/25 15:09 01/25/25 22:44 Vancomycin Consult Request NOTAPPLIC 01/25/25 15:10 Not Given CONSULT PHARMACY ONE Naloxone HCl 1 mg 01/25/25 14:13 01/25/25 14:39 Naloxone 2mg/2ml Syringe IV 01/25/25 14:14 1 mg ONCE ONE Administration Ondansetron HCl 4 mg 01/25/25 14:30 01/25/25 14:39 Ondansetron 4mg/2ml Vial IV 01/25/25 14:31 4 mg ONCE ONE Administration Sodium Chloride 50 ml 01/25/25 15:21 01/25/25 15:23 0.9 % Sodium Chloride 50 Ml Vial IV 01/25/25 15:22 50 ml ONCE ONE Administration Sodium Chloride 10 ml 01/25/25 15:21 01/25/25 15:23 Sodium Chloride 0.9% 10ml Syr (Rad Only) IV 01/25/25 15:22 10 ml ONCE ONE Administration Sodium Chloride 10 ml 01/25/25 21:27 Sodium Chloride 0.9% 10ml Flush Syringe IV 02/24/25 21:26 NEEDED PRN Maintain IV Site ORDERS Category Date Time Status CT abdomen pelvis w con Stat Cat Scan 01/25/25 13:[address] cervical spine wo con Stat Cat Scan 01/25/25 13:[address] head/brain wo con Stat Cat Scan 01/25/25 13:[address] lumbar spine wo con Stat Cat Scan 01/25/25 13:[address] pelvis wo con Stat Cat Scan 01/25/25 13:[address] thoracic spine wo con Stat Cat Scan 01/25/25 13:56 Completed CTA Chest [CT angio chest - dissection] Stat Cat Scan 01/25/25 13:52 Completed Acetaminophen Stat Lab 01/25/25 14:30 Completed BNP [NT Pro Brain Natriuretic Pep.] Stat Lab 01/25/25 14:30 Completed CBC w/Auto Diff [Complete Blood Count Auto Diff] Stat Lab 01/25/25 14:30 Completed CK [Creatine Kinase] Stat Lab 01/25/25 14:30 Completed CK [Creatine Kinase] Stat Lab 01/25/25 14:30 Completed CMP [Comprehensive Metabolic Panel] Stat Lab 01/25/25 14:30 Completed CSF Cell Count w/ Dif Routine Lab 01/25/25 19:55 Completed CSF Total Protein Routine Lab 01/25/25 19:55 Completed Cytology Routine Lab 01/25/25 20:00 Ordered ESR [Erythrocyte Sedimentation Rate] Stat Lab 01/25/25 14:30 Completed Ethyl Alcohol Stat Lab 01/25/25 14:30 Completed Glucose,CSF Routine Lab 01/25/25 19:55 Completed HSV 1&2 PCR, (CSF) Routine Lab 01/25/25 19:55 Received Lactic Acid Follow Up (RFLX 1) Stat Lab 01/25/25 21:04 Completed MAG [Magnesium] Stat Lab 01/25/25 14:30 Completed PT/PTT Stat Lab 01/25/25 14:30 Completed Salicylate Stat Lab 01/25/25 14:30 Completed Trop I [Troponin I] Stat Lab 01/25/25 14:30 Completed Troponin I Q3H Lab 01/25/25 16:45 Completed Troponin I Q3H Lab 01/25/25 21:04 Completed UDS [Drug Screen,Urine] Stat Lab 01/25/25 15:53 Completed Urinalysis and Microscopic Stat Lab 01/25/25 15:53 Completed Acid Fast Smear+Culture W/Rflx Routine Micro 01/25/25 19:55 Results Blood Culture Stat Micro 01/25/25 14:30 Results CSF Culture & Gram Stain Routine Micro 01/25/25 19:55 Results Fungus Culture With Stain Routine Micro 01/25/25 19:55 Received VBG [Venous Blood Gas] Stat RT 01/25/25 14:30 Completed VBG [Venous Blood Gas] Stat RT 01/25/25 16:46 Completed Medical Decision Narrative: In summary, patient is a 71 year old female PMHx CKD, HTN, HLD, constipation, colostomy, chronic opioid use, who presents to the emergency department after being found down. EMS reports patient was AMS, hypotensive and hypoxic in low 80s, EMS placed patient on 15L nonrebreather, they report her found her. Upon arrival to the ED, patient is alert, disoriented, pupils small but react to light, patient continues to state help . Patient answered name correctly, did not answer other orientation questions correctly. She is diaphoretic, hypertensive, tachycardic. She has generalized abd tenderness upon palpation, abd is soft. CBC remarkable for leukocytosis, 19.7, when patient was evaluated a few hours ago, WBC was 14.8. Stable H&H. VBG CO2 33.6, HCO3 19.2. Lactic acid 9.3. CMP remarkable for sodium of 135, anion gap 21.8, BUN 22, creatinine 1.50, GFR 34. Glucose 248. AST 56, ALT 59, alk phos 179. BNP 5100. Salicylates < 1.0. Acetaminophen < 10. Plasma serum alcohol < 10. CT's reviewed: C-spine CT no acute abnormality. T spine no acute findings. L spine no acute findings. Head CT no intracranial hemorrhage, mass or lesions. CT chest negative. Ct pelvis negative. Ct abd pel right sided ostomy, moderate amount of stool. Care transferred to attending <Evelyne Berry, - Last Filed: 01/28/25 21:48> Vital Signs: 01/25/25 13:40 01/25/25 13:40 01/25/25 13:45 Temperature 97.9 F Temperature Source Temporal Artery Scan Pulse Rate 124 H Pulse Rate [Right] 121 H Respiratory Rate 18 21 Blood Pressure Blood Pressure [Right Arm] 217/97 H Blood Pressure Mean Blood Pressure Mean [Right Arm] 137 Blood Pressure Source Blood Pressure Source [Right Arm] Automatic Cuff Blood Pressure Position Blood Pressure Position [Right Arm] Sitting 02 Sat by Pulse Oximetry 100 100 Oxygen Delivery Method Room Air Oxygen Flow Rate (LPM) 01/25/25 13:47 01/25/25 13:57 01/25/25 14:00 Temperature Temperature Source Pulse Rate 115 H 115 H Pulse Rate [Right] Respiratory Rate 20 36 H 21 Blood Pressure 217/97 H 221/94 H 221/108 H Blood Pressure [Right Arm] Blood Pressure Mean Blood Pressure Mean [Right Arm] Blood Pressure Source Blood Pressure Source [Right Arm] Blood Pressure Position Blood Pressure Position [Right Arm] 02 Sat by Pulse Oximetry 100 100 Oxygen Delivery Method Oxygen Flow Rate (LPM) 01/25/25 14:00 01/25/25 14:30 01/25/25 14:47 Temperature Temperature Source Pulse Rate 118 H 127 H Pulse Rate [Right] Respiratory Rate 13 16 Blood Pressure 223/104 H 201/96 H Blood Pressure [Right Arm] Blood Pressure Mean Blood Pressure Mean [Right Arm] Blood Pressure Source Blood Pressure Source [Right Arm] Blood Pressure Position Blood Pressure Position [Right Arm] 02 Sat by Pulse Oximetry 98 98 99 Oxygen Delivery Method Room Air Oxygen Flow Rate (LPM) 01/25/25 15:23 01/25/25 15:30 01/25/25 16:02 Temperature Temperature Source Pulse Rate 120 H 122 H Pulse Rate [Right] Respiratory Rate 13 18 23 Blood Pressure 211/98 H 228/98 H 151/114 H Blood Pressure [Right Arm] Blood Pressure Mean Blood Pressure Mean [Right Arm] Blood Pressure Source Blood Pressure Source [Right Arm] Blood Pressure Position Blood Pressure Position [Right Arm] 02 Sat by Pulse Oximetry 100 99 100 Oxygen Delivery Method Room Air Oxygen Flow Rate (LPM) 01/25/25 16:11 01/25/25 16:30 01/25/25 17:00 Temperature Temperature Source Pulse Rate 131 H 121 H 122 H Pulse Rate [Right] Respiratory Rate 18 21 12 Blood Pressure 143/102 H 156/102 H 177/102 H Blood Pressure [Right Arm] Blood Pressure Mean Blood Pressure Mean [Right Arm] Blood Pressure Source Blood Pressure Source [Right Arm] Blood Pressure Position Blood Pressure Position [Right Arm] 02 Sat by Pulse Oximetry 99 96 96 Oxygen Delivery Method Room Air Oxygen Flow Rate (LPM) 01/25/25 17:15 01/25/25 17:16 01/25/25 17:21 Temperature Temperature Source Pulse Rate 141 H 148 H Pulse Rate [Right] Respiratory Rate 37 H 38 H 41 H Blood Pressure 238/108 H 247/107 H 234/106 H Blood Pressure [Right Arm] Blood Pressure Mean Blood Pressure Mean [Right Arm] Blood Pressure Source Blood Pressure Source [Right Arm] Blood Pressure Position Blood Pressure Position [Right Arm] 02 Sat by Pulse Oximetry 100 100 99 Oxygen Delivery Method Room Air Room Air Oxygen Flow Rate (LPM) 01/25/25 17:30 01/25/25 17:36 01/25/25 17:38 Temperature Temperature Source Pulse Rate 148 H 143 H Pulse Rate [Right] Respiratory Rate 35 H 32 H Blood Pressure 213/146 H 211/118 H 181/89 H Blood Pressure [Right Arm] Blood Pressure Mean Blood Pressure Mean [Right Arm] Blood Pressure Source Blood Pressure Source [Right Arm] Blood Pressure Position Blood Pressure Position [Right Arm] 02 Sat by Pulse Oximetry 97 97 Oxygen Delivery Method Oxygen Flow Rate (LPM) 01/25/25 17:40 01/25/25 17:45 01/25/25 17:50 Temperature Temperature Source Pulse Rate 114 H 107 H 101 H Pulse Rate [Right] Respiratory Rate 28 H 25 H 31 H Blood Pressure 181/89 H 205/100 H 210/95 H Blood Pressure [Right Arm] Blood Pressure Mean Blood Pressure Mean [Right Arm] Blood Pressure Source Blood Pressure Source [Right Arm] Blood Pressure Position Blood Pressure Position [Right Arm] 02 Sat by Pulse Oximetry 90 L 90 L 91 L Oxygen Delivery Method Oxygen Flow Rate (LPM) 01/25/25 17:55 01/25/25 18:00 01/25/25 18:06 Temperature Temperature Source Pulse Rate 103 H 103 H Pulse Rate [Right] Respiratory Rate 25 H 23 11 L Blood Pressure 203/104 H 216/105 H 228/94 H Blood Pressure [Right Arm] Blood Pressure Mean Blood Pressure Mean [Right Arm] Blood Pressure Source Blood Pressure Source [Right Arm] Blood Pressure Position Blood Pressure Position [Right Arm] 02 Sat by Pulse Oximetry 88 L 95 Oxygen Delivery Method Oxygen Flow Rate (LPM) 01/25/25 18:11 01/25/25 18:15 01/25/25 18:20 Temperature Temperature Source Pulse Rate Pulse Rate [Right] Respiratory Rate 15 12 8 L Blood Pressure 203/136 H 199/116 H 217/127 H Blood Pressure [Right Arm] Blood Pressure Mean Blood Pressure Mean [Right Arm] Blood Pressure Source Blood Pressure Source [Right Arm] Blood Pressure Position Blood Pressure Position [Right Arm] 02 Sat by Pulse Oximetry Oxygen Delivery Method Oxygen Flow Rate (LPM) 01/25/25 18:24 01/25/25 18:27 01/25/25 18:30 Temperature Temperature Source Pulse Rate Pulse Rate [Right] Respiratory Rate 10 L 9 L 12 Blood Pressure 219/129 H 151/121 H 149/97 H Blood Pressure [Right Arm] Blood Pressure Mean Blood Pressure Mean [Right Arm] Blood Pressure Source Blood Pressure Source [Right Arm] Blood Pressure Position Blood Pressure Position [Right Arm] 02 Sat by Pulse Oximetry Oxygen Delivery Method Oxygen Flow Rate (LPM) 01/25/25 18:36 01/25/25 18:45 01/25/25 18:46 Temperature Temperature Source Pulse Rate 101 H 99 H Pulse Rate [Right] Respiratory Rate 10 L 17 20 Blood Pressure 149/81 H 137/115 H 182/98 H Blood Pressure [Right Arm] Blood Pressure Mean Blood Pressure Mean [Right Arm] Blood Pressure Source Blood Pressure Source [Right Arm] Blood Pressure Position Blood Pressure Position [Right Arm] 02 Sat by Pulse Oximetry 100 100 Oxygen Delivery Method Oxygen Flow Rate (LPM) 01/25/25 18:50 01/25/25 19:00 01/25/25 19:01 Temperature Temperature Source Pulse Rate 100 H 110 H Pulse Rate [Right] Respiratory Rate 20 11 L Blood Pressure 185/95 H 188/159 H Blood Pressure [Right Arm] Blood Pressure Mean 168 Blood Pressure Mean [Right Arm] Blood Pressure Source Blood Pressure Source [Right Arm] Blood Pressure Position Blood Pressure Position [Right Arm] 02 Sat by Pulse Oximetry 99 97 Oxygen Delivery Method Room Air Oxygen Flow Rate (LPM) 01/25/25 19:01 01/25/25 19:05 01/25/25 19:05 Temperature Temperature Source Pulse Rate 108 H Pulse Rate [Right] Respiratory Rate 12 12 Blood Pressure 180/80 H Blood Pressure [Right Arm] Blood Pressure Mean 113 Blood Pressure Mean [Right Arm] Blood Pressure Source Blood Pressure Source [Right Arm] Blood Pressure Position Blood Pressure Position [Right Arm] 02 Sat by Pulse Oximetry 98 Oxygen Delivery Method Oxygen Flow Rate (LPM) 01/25/25 19:10 01/25/25 19:10 01/25/25 19:15 Temperature Temperature Source Pulse Rate Pulse Rate [Right] Respiratory Rate 18 18 Blood Pressure 201/94 H Blood Pressure [Right Arm] Blood Pressure Mean 123 Blood Pressure Mean [Right Arm] Blood Pressure Source Blood Pressure Source [Right Arm] Blood Pressure Position Blood Pressure Position [Right Arm] 02 Sat by Pulse Oximetry Oxygen Delivery Method Oxygen Flow Rate (LPM) 01/25/25 19:16 01/25/25 19:16 01/25/25 19:20 Temperature Temperature Source Pulse Rate 102 H Pulse Rate [Right] Respiratory Rate 19 13 Blood Pressure 191/90 H Blood Pressure [Right Arm] Blood Pressure Mean 123 Blood Pressure Mean [Right Arm] Blood Pressure Source Blood Pressure Source [Right Arm] Blood Pressure Position Blood Pressure Position [Right Arm] 02 Sat by Pulse Oximetry 99 Oxygen Delivery Method Oxygen Flow Rate (LPM) 01/25/25 19:20 01/25/25 19:26 01/25/25 19:26 Temperature Temperature Source Pulse Rate 107 H Pulse Rate [Right] Respiratory Rate 15 Blood Pressure 195/92 H 176/85 H Blood Pressure [Right Arm] Blood Pressure Mean 127 126 Blood Pressure Mean [Right Arm] Blood Pressure Source Blood Pressure Source [Right Arm] Blood Pressure Position Blood Pressure Position [Right Arm] 02 Sat by Pulse Oximetry 100 Oxygen Delivery Method Oxygen Flow Rate (LPM) 01/25/25 19:30 01/25/25 19:45 01/25/25 19:55 Temperature Temperature Source Pulse Rate 103 H Pulse Rate [Right] Respiratory Rate 20 21 Blood Pressure 188/102 H Blood Pressure [Right Arm] Blood Pressure Mean 132 Blood Pressure Mean [Right Arm] Blood Pressure Source Blood Pressure Source [Right Arm] Blood Pressure Position Blood Pressure Position [Right Arm] 02 Sat by Pulse Oximetry 93 L Oxygen Delivery Method Oxygen Flow Rate (LPM) 01/25/25 19:55 01/25/25 20:00 01/25/25 20:01 Temperature Temperature Source Pulse Rate 110 H 114 H Pulse Rate [Right] Respiratory Rate 17 12 Blood Pressure 187/117 H Blood Pressure [Right Arm] Blood Pressure Mean 140 Blood Pressure Mean [Right Arm] Blood Pressure Source Blood Pressure Source [Right Arm] Blood Pressure Position Blood Pressure Position [Right Arm] 02 Sat by Pulse Oximetry 96 99 Oxygen Delivery Method Oxygen Flow Rate (LPM) 01/25/25 20:07 01/25/25 20:07 01/25/25 20:11 Temperature Temperature Source Pulse Rate Pulse Rate [Right] Respiratory Rate 15 Blood Pressure 149/128 H 176/113 H Blood Pressure [Right Arm] Blood Pressure Mean 133 134 Blood Pressure Mean [Right Arm] Blood Pressure Source Blood Pressure Source [Right Arm] Blood Pressure Position Blood Pressure Position [Right Arm] 02 Sat by Pulse Oximetry Oxygen Delivery Method Oxygen Flow Rate (LPM) 01/25/25 20:11 01/25/25 20:15 01/25/25 20:16 Temperature Temperature Source Pulse Rate Pulse Rate [Right] Respiratory Rate 12 12 Blood Pressure 195/81 H Blood Pressure [Right Arm] Blood Pressure Mean 119 Blood Pressure Mean [Right Arm] Blood Pressure Source Blood Pressure Source [Right Arm] Blood Pressure Position Blood Pressure Position [Right Arm] 02 Sat by Pulse Oximetry Oxygen Delivery Method Oxygen Flow Rate (LPM) 01/25/25 20:16 01/25/25 20:29 01/25/25 20:30 Temperature 97.9 F Temperature Source Oral Pulse Rate 110 H 108 H Pulse Rate [Right] Respiratory Rate 14 12 20 Blood Pressure 195/81 H 129/92 H Blood Pressure [Right Arm] Blood Pressure Mean Blood Pressure Mean [Right Arm] Blood Pressure Source Automatic Cuff Blood Pressure Source [Right Arm] Blood Pressure Position Supine Blood Pressure Position [Right Arm] 02 Sat by Pulse Oximetry 100 Oxygen Delivery Method Nasal Cannula Nasal Cannula Oxygen Flow Rate (LPM) 1 2 Lab Data Lab results reviewed: Yes I reviewed the patient's lab results. Lab Results 01/25/25 14:30: WBC 19.7 H D, RBC 4.99, Hgb 14.7, Hct 44.6, MCV 89.4, MCH 29.5, MCHC 33.0, RDW 13.5, Plt Count 560 H D, MPV 9.2, Neut % (Auto) 93.8 H, Lymph % (Auto) 3.9 L, [place] % (Auto) 1.4 L, Eos % (Auto) 0.0 L, Baso % (Auto) 0.3, Neut # (Auto) 18.5 H, Lymph # (Auto) 0.8, Band[place] # (Auto) 0.3, Eos # (Auto) 0.0, Baso # (Auto) 0.1, ESR 15, PT 10.8, INR 0.97, APTT 22.5 L, VBG pH 7.37, VBG pCO2 33.6 L , VBG pO2 48.2 H, VBG HCO3 19.2 L, VBG Total CO2 20.2 L, VBG O2 Saturation 84.1 H, VBG Base Excess -6.1 L, VBG Lactic Acid 9.3 H, Sodium 135 L, Potassium 4.8, Chloride 98, Carbon Dioxide 20 L, Anion Gap 21.8 H, BUN 22 H, Creatinine 1.50 H D, Estimated Creat Clear 38, Estimated GFR 34 L, Est GFR ( Amer) 41 L D, Glucose 248 H D, Calcium 10.0, Magnesium 2.3, Total Bilirubin 0.4, AST 56 H D, A LT 59 D, Alkaline Phosphatase 179 H, Total Creatine Kinase 28 L 01/25/25 14:30: Total Creatine Kinase 27 L, Troponin I 0.02, NT-Pro-B Natriuret Pep 5100 H, Total Protein 8.9 H, Albumin 4.8, Globulin 4.1 H, Albumin/Globulin Ratio 1.2, Salicylates < 1.0 L, Acetaminophen < 10 L, Plasma/Serum Alcohol < 10 01/25/25 15:53: Urine Color Yellow, Urine Appearance Clear, Urine pH 5.5, Ur Specific [place] <= 1.005, Urine Protein Trace, Urine Glucose (UA) Negative, Urine Ketones Negative, Urine Blood Negative, Urine Nitrate Negative, Urine Bilirubin Negative, Urine Urobilinogen 0.2, Ur Leukocyte Esterase Negative, Urine RBC None, Urine WBC None, Ur Squamous Epith Cells None, Urine Bacteria None, Urine Opiates Screen Positive H, Urine Methadone Screen Negative, Ur Barbituates Screen Negative, Ur Phencyclidine Scrn Negative, Ur Amphetamines Screen Negative, U Benzodiazepines Scrn Positive H, Urine Cocaine Screen Negative, U Marijuana (THC) Screen Negative 01/25/25 16:45: Troponin I 0.03 01/25/25 16:46: VBG pH 7.48 H, VBG pCO2 24.4 L, VBG pO2 37.8, VBG HCO3 17.9 L, V BG Total CO2 18.7 L, VBG O2 Saturation 78.2 H, VBG Base Excess -5.5 L, VBG Lactic Acid 8.8 H 01/25/25 19:55: CSF Volume 9.5 01/25/25 19:55: CSF Volume 9.5, CSF Appearance Clear 01/25/25 19:55: CSF Appearance Clear, CSF WBC 2 01/25/25 19:55: CSF WBC 1, CSF RBC 1 01/25/25 19:55: CSF RBC 1, CSF Mononuclear WBCs % 8 01/25/25 19:55: CSF Mononuclear WBCs % 7, CSF Polynuclear WBCs % 2 01/25/25 19:55: CSF Polynuclear WBCs % 1, CSF Glucose 105 H, CSF Total Protein 100.0 H 01/25/25 19:55: CSF Total Protein 98.0 H, CSF Cryptococcus Ag Negative, CSF Cryptoco Ag Clt Rfx Not indicated Orders (Tests/Meds): ED MEDICATIONS Discontinued Medications Generic Name Dose Route Start Last Admin Trade Name Freq PRN Reason Stop Dose Admin Sodium Chloride 1,000 mls @ 999 mls/hr 01/25/25 13:59 01/25/25 16:15 Sod Chlor 0.9% 1000ml Bag IV 01/25/25 14:59 Infused .Q1H1M ONE Infusion Piperacillin Sod/Tazobactam 50 mls @ 100 mls/hr 01/25/25 15:09 01/25/25 17:43 Sod 3.375 gm/ Sodium Chloride IV 01/25/25 15:38 Infused ONCE ONE Infusion Vancomycin/PEG/NADA/Lysine/Water 1.5 gm in 300 mls @ 150 mls/hr 01/25/25 15:30 01/25/25 22:47 Vancomycin 1.5gm/300ml (Peg) Premix IV 01/25/25 17:29 Infused ONCE ONE Infusion Piperacillin Sod/Tazobactam 50 mls @ 100 mls/hr 01/25/25 16:25 01/25/25 22:46 Sod 3.375 gm/ Sodium Chloride IV 01/25/25 16:54 Infused Q8H ONE Infusion Levetiracetam 2,000 mg/ Sodium 120 mls @ 240 mls/hr 01/25/25 17:35 01/25/25 19:17 Chloride IV 01/25/25 17:36 Infused ONCE ONE Infusion Acyclovir Sodium 600 mg/ 250 mls @ 250 mls/hr 01/25/25 18:45 01/25/25 22:46 Sodium Chloride IV 02/01/25 18:44 Infused Q8H RACHEL Infusion Lactated Ringer's 1,000 mls @ 100 mls/hr 01/25/25 21:30 01/26/25 00:38 Lactated Ringer's 1000 Ml Bag IV 02/24/25 21:29 Infused .Q10H RACHEL Infusion Nicardipine HCl 25 mg/ Sodium 250 mls @ 50 mls/hr 01/25/25 22:05 01/26/25 00:38 Chloride IV 02/24/25 22:04 Infused .Q5H RACHEL Titration Protocol 5 MG/HR Ampicillin Sodium 2 gm/ Sodium 100 mls @ 200 mls/hr 01/25/25 22:44 01/26/25 00:42 Chloride IV 01/25/25 23:13 Infused ONCE ONE Infusion Iopamidol 70 ml 01/25/25 15:21 01/25/25 15:23 Iopamidol-370 (76%);100ml Bottle IV 01/25/25 15:22 70 ml ONCE ONE Administration Labetalol HCl 10 mg 01/25/25 15:54 01/25/25 17:38 Labetalol 20mg/4ml Syringe IV 01/25/25 15:55 10 mg ONCE ONE Administration Metoprolol Tartrate 5 mg 01/25/25 21:25 01/25/25 21:44 Metoprolol Tartrate 5mg/5ml Vial IV 01/25/25 21:26 5 mg ONCE ONE Administration Midazolam HCl 1 mg 01/25/25 14:50 01/25/25 14:52 Midazolam 2mg/2ml Vial IV 01/25/25 14:51 1 mg ONCE ONE Administration Midazolam HCl 2 mg 01/25/25 17:10 01/25/25 17:10 Midazolam 2mg/2ml Vial IM 01/25/25 17:11 2 mg ONCE ONE Administration Midazolam HCl 2 mg 01/25/25 17:19 01/25/25 17:19 Midazolam 2mg/2ml Vial IM 01/25/25 17:20 2 mg ONCE ONE Administration Midazolam HCl 1 mg 01/25/25 19:14 01/25/25 19:40 Midazolam 2mg/2ml Vial IV 01/25/25 19:15 1 mg ONCE ONE Administration Midazolam HCl 1 mg 01/25/25 19:52 01/25/25 19:59 Midazolam 2mg/2ml Vial IV 01/25/25 19:53 1 mg ONCE ONE Administration Miscellaneous 1 each 01/25/25 15:09 01/25/25 22:44 Vancomycin Consult Request NOTAPPLIC 01/25/25 15:10 Not Given CONSULT PHARMACY ONE Naloxone HCl 1 mg 01/25/25 14:13 01/25/25 14:39 Naloxone 2mg/2ml Syringe IV 01/25/25 14:14 1 mg ONCE ONE Administration Ondansetron HCl 4 mg 01/25/25 14:30 01/25/25 14:39 Ondansetron 4mg/2ml Vial IV 01/25/25 14:31 4 mg ONCE ONE Administration Sodium Chloride 50 ml 01/25/25 15:21 01/25/25 15:23 0.9 % Sodium Chloride 50 Ml Vial IV 01/25/25 15:22 50 ml ONCE ONE Administration Sodium Chloride 10 ml 01/25/25 15:21 01/25/25 15:23 Sodium Chloride 0.9% 10ml Syr (Rad Only) IV 01/25/25 15:22 10 ml ONCE ONE Administration Sodium Chloride 10 ml 01/25/25 21:27 Sodium Chloride 0.9% 10ml Flush Syringe IV 02/24/25 21:26 NEEDED PRN Maintain IV Site ORDERS Category Date Time Status CT abdomen pelvis w con Stat Cat Scan 01/25/25 13:[address] cervical spine wo con Stat Cat Scan 01/25/25 13:[address] head/brain wo con Stat Cat Scan 01/25/25 13:[address] lumbar spine wo con Stat Cat Scan 01/25/25 13:[address] pelvis wo con Stat Cat Scan 01/25/25 13:[address] thoracic spine wo con Stat Cat Scan 01/25/25 13:56 Completed CTA Chest [CT angio chest - dissection] Stat Cat Scan 01/25/25 13:52 Completed Acetaminophen Stat Lab 01/25/25 14:30 Completed BNP [NT Pro Brain Natriuretic Pep.] Stat Lab 01/25/25 14:30 Completed CBC w/Auto Diff [Complete Blood Count Auto Diff] Stat Lab 01/25/25 14:30 Completed CK [Creatine Kinase] Stat Lab 01/25/25 14:30 Completed CK [Creatine Kinase] Stat Lab 01/25/25 14:30 Completed CMP [Comprehensive Metabolic Panel] Stat Lab 01/25/25 14:30 Completed CSF Cell Count w/ Dif Routine Lab 01/25/25 19:55 Completed CSF Total Protein Routine Lab 01/25/25 19:55 Completed Cytology Routine Lab 01/25/25 20:00 Ordered ESR [Erythrocyte Sedimentation Rate] Stat Lab 01/25/25 14:30 Completed Ethyl Alcohol Stat Lab 01/25/25 14:30 Completed Glucose,CSF Routine Lab 01/25/25 19:55 Completed HSV 1&2 PCR, (CSF) Routine Lab 01/25/25 19:55 Received Lactic Acid Follow Up (RFLX 1) Stat Lab 01/25/25 21:04 Completed MAG [Magnesium] Stat Lab 01/25/25 14:30 Completed PT/PTT Stat Lab 01/25/25 14:30 Completed Salicylate Stat Lab 01/25/25 14:30 Completed Trop I [Troponin I] Stat Lab 01/25/25 14:30 Completed Troponin I Q3H Lab 01/25/25 16:45 Completed Troponin I Q3H Lab 01/25/25 21:04 Completed UDS [Drug Screen,Urine] Stat Lab 01/25/25 15:53 Completed Urinalysis and Microscopic Stat Lab 01/25/25 15:53 Completed Acid Fast Smear+Culture W/Rflx Routine Micro 01/25/25 19:55 Results Blood Culture Stat Micro 01/25/25 14:30 Results CSF Culture & Gram Stain Routine Micro 01/25/25 19:55 Results Fungus Culture With Stain Routine Micro 01/25/25 19:55 Received VBG [Venous Blood Gas] Stat RT 01/25/25 14:30 Completed VBG [Venous Blood Gas] Stat RT 01/25/25 16:46 Completed Medical Decision Narrative: In summary, patient is a 71 year old female PMHx CKD, HTN, HLD, constipation, colostomy, chronic opioid use, who presents to the emergency department after being found down. EMS reports patient was AMS, hypotensive and hypoxic in low 80s, EMS placed patient on 15L nonrebreather, they report her found her. Upon arrival to the ED, patient is alert, disoriented, pupils small but react to light, patient continues to state help . Patient answered name correctly, did not answer other orientation questions correctly. She is diaphoretic, hypertensive, tachycardic. She has generalized abd tenderness upon palpation, abd is soft. CBC remarkable for leukocytosis, 19.7, when patient was evaluated a few hours ago, WBC was 14.8. Stable H&H. VBG CO2 33.6, HCO3 19.2. Lactic acid 9.3. CMP remarkable for sodium of 135, anion gap 21.8, BUN 22, creatinine 1.50, GFR 34. Glucose 248. AST 56, ALT 59, alk phos 179. BNP 5100. Salicylates < 1.0. Acetaminophen < 10. Plasma serum alcohol < 10. CT's reviewed: C-spine CT no acute abnormality. T spine no acute findings. L spine no acute findings. Head CT no intracranial hemorrhage, mass or lesions. CT chest negative. Ct pelvis negative. Ct abd pel right sided ostomy, moderate amount of stool. Care transferred to attending While in the emergency department, I took over the care of the patient after patient had what looked like a seizure. Patient went unresponsive, eyes were deviated up into the right. Patient had generalized shaking and foaming at the mouth. Patient became tachycardic during the episode. Was given 2 of IM Versed, then given a second dose of 2 IM versed. Patient was otherwise breathing spontaneously, protecting her airway therefore did not feel that emergent neuro was indicated. Patient remained hemodynamically stable. IV access was difficult I attempted multiple ultrasound IV lines however left femoral central line was placed for IV access. As noted above, patient's labs were reviewed and interpreted by myself: CBC showed mild leukocytosis of 14, hemoglobin was stable. CMP showed mild hyponatremia of 135. Creatinine of 1.2. Glucose was normal. UA showed no evidence of infection. CBC was repeated in the emergency department and increased from 14-19. INR was normal at 0.97. Initial VBG showed no acidosis but with a lactate of 9.3. Second VBG showed alkalosis with a continued elevated lactate of 8.8. Urine drug screen was positive for benzodiazepines as well as opiates. Alcohol level was normal. As noted above, patient CT scans showed no acute pathology. CT head read did show limiting evaluation for small subarachnoid given residual contrast from prior CT scan. Patient continued to be mildly hypertensive, patient was given 10 of labetalol in the emergency department. The patient was not febrile, patient continued to be significantly altered from her baseline I felt that lumbar puncture was indicated given leukocytosis, elevated lactate and patient's seizure. Has no history of a seizure disorder. Lumbar puncture was performed at bedside which showed clear fluid and was sent for studies. Patient returned back to her altered state after her seizure-like activity within 1 hour. Patient did require some IV Versed to tolerate the lumbar puncture. At this time given patient's continued altered mental status, I discussed the case with the hospitalist patient was ultimately admitted to their service for further evaluation and workup. Procedures <Evelyne Berry DO - Last Filed: 01/28/25 21:48> Lumbar Puncture Time Out Performed: Yes Patient Position: left lateral decubitus Skin Prep: Povidone-Iodine 1% Local Anesthetic: lidocaine 1% Amount of anesthesia used (mL): 5 Spinal Needle Gauge: 20G Interspace Used: L3-L4 Fluid Initially Obtained: clear Complications: none Central Line Placement Left Femoral: Time Out Performed: Yes Patient Placed on Monitor/Pulse Ox: Yes MD Prep: mask, gown and gloves Central Line Prep: Povidone-Iodine 1% Ultrasound Used for Placement: Yes Central Line Lumen Inserted: triple Post Procedure: sutured in place, good blood return, all ports aspirated, flushed, capped and sterile dressing applied Patient Tolerated Procedure: well Complications: none Critical Care <Linda Fernandez APRN - Last Filed: 01/25/25 18:32> Critical Care Time Critical Care Time: No <Evelyne Berry DO - Last Filed: 01/28/25 21:48> Critical Care Time Critical Care Time: Yes Attestation: On 01/25/25, the high probability of a clinically significant, sudden or life threatening deterioration of the following system(s) required my full and direct attention, intervention and personal management. The time I documented below is in addition to time spent performing reported procedures but includes the following listed in this critical care notation. Total Time Total Critical Care Time: 65
--- NOTE | 2025-01-25 13:56 | CT_ITS ---
PROCEDURE INFORMATION: Exam: CT Cervical Spine Without Contrast Exam date and time: 01/25/2025 3:07 PM Age: 74 years old Clinical indication: Injury or trauma; Additional info: Found down TECHNIQUE: Imaging protocol: Computed tomography of the cervical spine without contrast. Radiation optimization: All CT scans at this facility use at least one of these dose optimization techniques: automated exposure control; mA and/or kV adjustment per patient size (includes targeted exams where dose is matched to clinical indication); or iterative reconstruction. COMPARISON: CT CERVICAL SPINE WO CON 07/04/2024 3:12 AM FINDINGS: Bones: Nondiagnostic imaging from C3-C6 due to patient motion. No acute abnormality within the visualized vertebral bodies. Multilevel facet arthropathy. Lungs: Lung apices are normal. Soft tissues: Unremarkable. IMPRESSION: Nondiagnostic imaging from C3-C6 due to patient motion. No acute abnormality within the visualized vertebral bodies.
--- NOTE | 2025-01-25 13:56 | CT_ITS ---
PROCEDURE INFORMATION: Exam: CT Pelvis Without Contrast, Skeleton Exam date and time: 01/25/2025 3:13 PM Age: 74 years old Clinical indication: Injury or trauma; Additional info: Found down AMS TECHNIQUE: Imaging protocol: Computed tomography of the pelvis without contrast. Exam focused on the skeleton. Radiation optimization: All CT scans at this facility use at least one of these dose optimization techniques: automated exposure control; mA and/or kV adjustment per patient size (includes targeted exams where dose is matched to clinical indication); or iterative reconstruction. COMPARISON: CT ANGIO ABDOMEN PELVIS 01/25/2025 1:42 AM FINDINGS: Bones/joints: Bilateral hip prostheses. No acute fracture. Soft tissues: Unremarkable. IMPRESSION: No acute findings.
--- NOTE | 2025-01-25 13:56 | CT_ITS ---
PROCEDURE INFORMATION: Exam: CT Lumbar Spine Without Contrast Exam date and time: 01/25/2025 3:07 PM Age: 74 years old Clinical indication: Injury or trauma; Additional info: Found down TECHNIQUE: Imaging protocol: Computed tomography of the lumbar spine without contrast. Radiation optimization: All CT scans at this facility use at least one of these dose optimization techniques: automated exposure control; mA and/or kV adjustment per patient size (includes targeted exams where dose is matched to clinical indication); or iterative reconstruction. COMPARISON: CT ANGIO ABDOMEN PELVIS 01/25/2025 1:42 AM FINDINGS: Bones/joints: No acute fracture. Normal alignment. Moderate disc space narrowing L2-L3 and L3-L4 with severe disc space narrowing at L5-S1. No significant disc bulge or herniation. No severe spinal canal stenosis. No significant neural foraminal narrowing. Soft tissues: Unremarkable. IMPRESSION: No acute lumbar spine fracture.
--- NOTE | 2025-01-25 13:56 | CT_ITS ---
PROCEDURE INFORMATION: Exam: CT Thoracic Spine Without Contrast Exam date and time: 01/25/2025 3:07 PM Age: 74 years old Clinical indication: Injury or trauma; Additional info: Found down TECHNIQUE: Imaging protocol: Computed tomography of the thoracic spine without contrast. Radiation optimization: All CT scans at this facility use at least one of these dose optimization techniques: automated exposure control; mA and/or kV adjustment per patient size (includes targeted exams where dose is matched to clinical indication); or iterative reconstruction. COMPARISON: CT THORACIC SPINE WO CON 01/25/2025 3:07 PM FINDINGS: Bones/joints: No acute fracture. Mild scoliotic curvature. Normal alignment. Multilevel disc space narrowing. No significant disc bulge or herniation. No severe spinal canal stenosis. No significant neural foraminal narrowing. Soft tissues: Unremarkable. IMPRESSION: No acute findings.
[2025-01-25] MEDS: ONDANSETRON 4MG/2ML VIAL 4 MG IV (14:39)
[2025-01-25] MEDS: NALOXONE 2MG/2ML SYRINGE 1 MG IV (14:39)
[2025-01-25] MEDS: 0.9 % SODIUM CHLORIDE 1000ML 1,000 ML 999 ML IV (14:40)
[2025-01-25 14:47] LABS: VBG HCO3 19.2 mmol/L (23-30); VBG PCO2 33.6 mmol/L (35-51); VBG PH 7.37 mmol/L (7.31-7.41); VBG PO2 48.2 mmol/L (28-40)
[2025-01-25 14:48] LABS: Lactate Venous 9.3 mmol/L (0.4-2.0)
--- NOTE | 2025-01-25 14:48 | PC.NURSE ---
pt blood cultures and labs delayed because of the pt being a hard stick. IV ultrasound placed by .
[2025-01-25 14:51] LABS: Hematocrit 44.6 % (37.0-47.0); Hemoglobin 14.7 g/dL (12.2-16.2); Immature Granulocytes % 0.6 %; Mean Corpuscular HGB Conc 33.0 g/dL (31.8-35.4); Mean Corpuscular Hemoglobin 29.5 pg (27.0-31.2); Mean Corpuscular Volume 89.4 fl (81-99); Nucleated Red Blood Cells % 0 %; Platelet Count 560 K/mm3 (142-424); Red Blood Count 4.99 M/mm3 (4.20-5.40); Red Cell Distribution Width-SD 43.8 fL; White Blood Count 19.7 K/mm3 (4.8-10.8)
[2025-01-25] MEDS: MIDAZOLAM 2MG/2ML VIAL 1 MG IV ×3 (14:52→19:59)
[2025-01-25 14:58] LABS: Albumin Level 4.8 g/dl (3.5-5.0); Chloride 98 mmol/L (98-107); Potassium 4.8 mmoL/L (3.5-5.1); Sodium 135 mmol/L (136-145)
[2025-01-25 15:00] LABS: Magnesium 2.3 mg/dl (1.6-2.3)
[2025-01-25 15:01] LABS: Alanine Aminotransferase 59 U/L (12-78); Albumin/Globulin Ratio 1.2 (1.1-1.8); Alkaline Phosphatase 179 U/L (38-126); Anion Gap 21.8 mEq/L (5-15); Bilirubin,Total 0.4 mg/dl (0.2-1.3); Blood Urea Nitrogen 22 mg/dl (7-17); Calcium 10.0 mg/dl (8.4-10.2); Carbon Dioxide 20 mmol/L (22.0-30.0); Creatine Kinase 28 U/L (30-135); Creatinine Clearance Estimated 38 mL/min (50-200); Creatinine,Serum 1.50 mg/dl (0.52-1.04); Estimated Glomerular Filt Rate 34 ml/min (>60); GFR (African American) 41 ML/MIN (>60); Globulin 4.1 g/dL (1.3-3.2); Glucose 248 mg/dl (74-100); Total Protein,Serum 8.9 g/dl (6.3-8.2)
[2025-01-25 15:07] LABS: Acetaminophen < 10 ug/ml (10-30); Aspartate Amino Transferase 56 U/L (14-36); Salicylate < 1.0 mg/dL (2.0-20.0)
[2025-01-25 15:10] LABS: NT Pro Brain Natriuretic Pep. 5100 pg/mL (0-125)
[2025-01-25 15:13] LABS: Troponin I 0.02 ng/ml (0.00-0.034)
[2025-01-25 15:19] LABS: Activated Partial Thrombo Time 22.5 seconds (22.8-30.6); INR 0.97 (0.9-1.1); Prothrombin Time 10.8 seconds (10.1-12.5)
[2025-01-25] MEDS: IOPAMIDOL-370 (76%);100ML BOTTLE 70 ML IV (15:23)
[2025-01-25] MEDS: SODIUM CHLORIDE 0.9% 10ML SYR (RAD ONLY) 10 ML IV (15:23)
[2025-01-25] MEDS: 0.9 % SODIUM CHLORIDE 50 ML VIAL IV (15:23)
--- NOTE | 2025-01-25 15:45 | PC.NURSE ---
Amparo Soliman A.Hedges where at the pt's bedside. Amparo noticed white powder residue on the pts left nare. Amparo notified Marcelino of the findings. notified. MARCIA Ayala at the pt's bedside. was asked by MARCIA Ayala if the pt takes medications at home. Pt's confirmed that the pt takes Oxycodone at home and administers it inhaled intranasal. Pt's reports that the pt took 10-12 Oxycodone tablets yesterday because of the pain she has been having from the constipation. pt states that the pt takes enough Oxycodone to kill a horse . 15:50- pt was placed on seizure pads at this time.
[2025-01-25 16:05] LABS: Microscopic, Urine URINE MICROSCOPIC (MICROSCOPIC)
[2025-01-25 16:19] LABS: Amphetamine/Metha Screen,Urine Negative ng/ml (<1000); Benzodiazepines Screen,Urine Positive ng/ml (<200)
[2025-01-25 16:20] LABS: Barbiturates Screen,Urine Negative ng/ml (<200)
[2025-01-25 16:22] LABS: Methadone Screen,Urine Negative ng/ml (<300); Opiate Screen,Urine Positive ng/ml (<300)
[2025-01-25 16:23] LABS: Phencyclidine Screen,Urine Negative ng/ml (<25)
[2025-01-25 16:25] LABS: Bilirubin,Urine Negative (Negative); Color,Urine YELLOW (Yellow); Glucose,Urine (UA) Negative (Negative); Ketones,Urine Negative (Negative); Leukocyte Esterase,Urine Negative (Negative); PH,Urine 5.5 (5.0-8.5); Protein,Urine TRACE (Negative); Specific Gravity, Urine <= 1.005 (1.005-1.030); Urobilinogen,Urine 0.2 EU/dl (0.2)
[2025-01-25] MEDS: PIPERCILLIN/TAZO 3.375 GM in 0.9 % SODIUM CHLORIDE 50 ML IV (16:26)
[2025-01-25 16:40] LABS: Creatine Kinase 27 U/L (30-135)
[2025-01-25 16:52] LABS: VBG HCO3 17.9 mmol/L (23-30); VBG PH 7.48 mmol/L (7.31-7.41); VBG PO2 37.8 mmol/L (28-40)
[2025-01-25 16:54] LABS: VBG PCO2 24.4 mmol/L (35-51)
[2025-01-25 16:58] LABS: Lactate Venous 8.8 mmol/L (0.4-2.0)
--- NOTE | 2025-01-25 16:58 | PC.NURSE ---
Bicarb 17.9 Lactic 8.8 PH 7.4 CO2 24.4
--- NOTE | 2025-01-25 17:00 | PC.NURSE ---
17:00- Pt's reports that the pt started scooting herself down towards the end of the bed. pt then threw her whole body back onto the bed, her eyes rolled back in her head, and her whole body started shaking per the pt's . pt's states he went to the nurses station and got help. SPENCER Rousseau went into the room and notified the MD that she needed to come to the pt's bedside. and MARCIA Ayala at pt's bedside. 17:10- Midazolam 2mg IM given to the pt per MD. 17:19- Midazolam 2mg IM given to the pt per MD. 17:20- Central line placed in pt's left femoral artery by Dr. Berry.
[2025-01-25] MEDS: MIDAZOLAM 2MG/2ML VIAL 2 MG IM ×2 (17:10→17:19)
--- NOTE | 2025-01-25 17:13 | ECG_ITS ---
APPROVED REPORT Exam: Resting ECG HR:137 bpm ECG Measurements Heart Rate 137 AXES SD 136 P 88 QRSd 81 QRS 81 QT 360 T 87 QTc 440 Conclusion SINUS TACHYCARDIA MODERATE ST DEPRESSION [0.05+ mV ST DEPRESSION] ABNORMAL ECG INTERPRETATION BASED ON A DEFAULT AGE OF 41 YEARS UNCONFIRMED REPORT Electronically signed by : ZHANE WOLFE, 01/27/2025 06:31:37
[2025-01-25 17:15] LABS: Troponin I 0.03 ng/ml (0.00-0.034)
[2025-01-25] MEDS: LABETALOL 20MG/4ML SYRINGE 10 MG IV (17:38)
[2025-01-25] MEDS: levETIRAcetam 2,000 MG in 0.9 % SODIUM CHLORIDE 100 ML 240 MG IV (18:10)
[2025-01-25 18:48] LABS: Reflex Lactic Add Lactic Reflex
[2025-01-25] MEDS: VANCOMYCIN/WATER FOR INJ (PEG) 1.5 GM/300 ML PIGGYBACK IV (19:00)
--- NOTE | 2025-01-25 19:57 | PC.NURSE ---
Dr. Berry on the phone with Naz KENNEDY
--- NOTE | 2025-01-25 20:01 | PC.NURSE ---
Admitted to [facility] ICU with dx of AMS
[2025-01-25] MEDS: ACYCLOVIR SODIUM 600 MG in 0.9 % SODIUM CHLORIDE 250 ML 250 MG IV (20:04)
--- NOTE | 2025-01-25 20:26 | PC.NURSE ---
Report given to Samantha PAL[facility] ICU
[2025-01-25 20:37] LABS: Glucose,CSF 105 mg/dl (40-70)
--- NOTE | 2025-01-25 20:46 | PC.NURSE ---
patient go to unit at 2022
[2025-01-25 20:55] LABS: Tube Number: Tube 1; Tube Number: Tube 3
[2025-01-25 20:57] LABS: Volume,CSF 9.5 mL
[2025-01-25 20:59] LABS: Tube Number: Tube 1
[2025-01-25 21:01] LABS: White Blood Cell,CSF 2 cells/uL (0-5)
[2025-01-25 21:02] LABS: Tube Number: Tube 3; Volume,CSF 9.5 mL; White Blood Cell,CSF 1 cells/uL (0-5)
[2025-01-25] MEDS: PIPERACILLIN/TAZO 3.375 GM in 0.9 % SODIUM CHLORIDE 50 ML IV (21:12)
[2025-01-25 21:22] LABS: Lactic Acid Follow Up (RFLX 1) 2.5 mmol/L (0.7-2.1)
[2025-01-25 21:34] LABS: Troponin I 0.06 ng/ml (0.00-0.034)
[2025-01-25] MEDS: METOPROLOL TARTRATE 5MG/5ML VIAL 5 MG IV (21:44)
[2025-01-25] MEDS: LACTATED RINGERS 1000ML 1,000 ML 100 ML IV (21:51)
[2025-01-25 22:10] LABS: Mononuclear WBCs,CSF 8 %; Polynuclear WBCs,CSF 2 %; Red Blood Cell,CSF 1 cells/uL (0)
[2025-01-25 22:13] LABS: Mononuclear WBCs,CSF 7 %; Polynuclear WBCs,CSF 1 %; Red Blood Cell,CSF 1 cells/uL (0)
[2025-01-25] MEDS: NICARDIPINE HCL 25 MG in 0.9 % SODIUM CHLORIDE 240 ML 50 MG IV (22:31)
--- NOTE | 2025-01-25 22:45 | PC.NURSE ---
Notified Naz Daly APRN pt is triggering for severe sepsis
--- NOTE | 2025-01-25 23:00 | PC.NURSE ---
Addendum entered by Samantha Cuello RN 01/25/25 23:35: [facility] currently on divert. states he agrees to pt being transferred to [facility] ICU. Verified over phone with Sandra Paulino RN. Original Note: Spoke with pt and updated on pt status and need of transfer for neurology and she was accepted at [facility] neuro ICU. states he would prefer pt goes to [facility] if there is no waitlist for neuro ICU. Naz KENNEDY notified and states she will contact [facility] to see if they have an available bed.
[2025-01-25] MEDS: AMPICILLIN SODIUM 2 GM in 0.9 % SODIUM CHLORIDE 100 ML IV (23:07)
[2025-01-25 23:09] LABS: Reflex Lactic (2 hrs) Add Lactic Reflex
--- NOTE | 2025-01-25 23:37 | PC.NURSE ---
Called report to Madelaine PALMER at [facility]. Pt room assignment [facility] 2B 24 ICU. notified.
--- NOTE | 2025-01-25 23:55 | PC.NURSE ---
Ambulance unable to transfer patient for est. 1.5 hours. Naz KENNEDY notified and states to call [facility]. notified and agreeable to helicopter transfer to [facility].
[2025-01-25 23:56] LABS: Lactic Acid Follow up (RFLX 2) 2.6 mmol/L (0.7-2.1)
[2025-01-26] VITALS: BP 165/66; PULSE 129; RESP 25; O2SAT 100
--- NOTE | 2025-01-26 00:05 | PC.NURSE ---
[facility] notified and accepted. ETA 22 mins
--- NOTE | 2025-01-26 00:07 | EXP.HP ---
History of Present Illness *Admission Date: 01/25/25 *Reason for visit:: AMS *History of present illness: Patient is a 74-year-old female with past medical history significant for CKD stage III, obstruction of small intestine, post colectomy, hypothyroidism, hypertension, hyperlipidemia, opiate use, memory loss, arthritis. Presents to [facility] after she was found down by her per EMS. It was also noted per EMS she was initially hypotensive and hypoxic with oxygen saturations in the 80s. She was placed on a 15 L nonrebreather and transferred via EMS to the emergency department. History provided per staff and chart review, unable to obtain history due to underlying confusion. Patient alert but disoriented, unable to follow commands or answer questions appropriately. Noted be diaphoretic, hypertensive and tachycardic. ED provider also noted seizure-like activity while in the emergency department. Reports patient was foaming at the mouth. Received IV Keppra. LP performed per ED provider. CSF protein 98 resulted after transfer to ICU. Due to complexity and limiting neurology services within our facility I discussed this case with [facility] neurology and technical research scientist due to CT head finding, CSF fluid results and seizure activity. Recommended transfer for closer observation with neurology. ED workup included laboratory studies and imaging, including C-spine, T-spine, L-spine with no acute findings. CT chest and pelvis negative. CT abdomen and pelvis noted ostomy and moderate amount of stool. CT head noted small subarachnoid hemorrhage. Leukocytosis 19.7, lactic acid 2.5, BMP 5100. CSF total protein 98. Venous blood gas CO2 33.6, HCO3 19.2. [facility] Disclaimer: The information contained in this section may have been updated after the patient was seen, as this information can be updated by other users. Medical History Left foot pain Right foot injury Chronic kidney disease TIP (acute kidney injury) Systolic murmur Bowel wall thickening Ischemic bowel disease Hypertension Paroxysmal atrial fibrillation Aftercare following bilateral knee joint replacement surgery C. difficile diarrhea Colostomy in place Perforated sigmoid colon Elevated liver enzymes Ileus Abnormal electrocardiogram [ECG] [EKG] Abdominal pain Hypothyroidism IBS (irritable bowel syndrome) HLD (hyperlipidemia) HTN (hypertension), benign Hypokalemia Hypokalemia due to loss of potassium Surgical History H/O ileostomy History of total right hip replacement History of arthroscopy of left shoulder Family History Other Anemia Asthma Cancer Hyperlipidemia Social History Smoking Status: Never smoker second hand exposure: No alcohol intake: never current occupational status: retired Travel in the last 8 weeks?: None household members: spouse housing: house marital status: current occupational exposures/hazards: No caffeine: No Have you lived/traveled outside [place] in past 30 days?: No Contact w/someone who lives/traveled outside [place] past 30 days?: No Exposure to someone with infectious disease in past 14 days?: No Do you have a fever (greater than 100.4 F or 38 C)?: No Have you tested positive for COVID-19?: No Exposed to someone with COVID-19 in past 14 days?: No Do you have a sore throat?: No Do you have a cough?: No Do you have any weakness?: No Are you experiencing any nausea/vomitting?: No Do you have any diarrhea?: No Are you experiencing any unusual bleeding?: No Do you have any muscle aches/pain?: No Do you have any abdominal pain?: No Are you experiencing loss of taste or smell?: No Other Medical History Have you received the Flu Vaccine for this season: Yes Have you received the Pneumonia Vaccine: Yes Review of Systems Review of Systems Review of systems:: unable to obtain Review of systems (narrative): Presents with altered mental status. Patient oriented to self only. Unable to follow commands. Constitutional Constitutional: Reports as per HPI Eyes Eyes: Reports as per HPI ENT Ears, Nose, Mouth, and Throat: Reports as per HPI *Cardiovascular Cardiovascular: Reports as per HPI *Respiratory Respiratory: Reports as per HPI *Gastrointestinal Gastrointestinal: Reports as per HPI *Genitourinary Genitourinary: Reports as per HPI *Musculoskeletal Musculoskeletal: Reports as per HPI Integumentary/Breasts Skin/Breast: Reports as per HPI *Neurologic Neurologic: Reports behavioral changes and Reports convulsions Psychiatric Psychiatric: Reports as per HPI and Reports behavioral changes Endocrine Endocrine: Reports as per HPI Hematologic/Lymphatic Hematologic/Lymphatic: Reports as per HPI Allergic/Immunologic Allergic/Immunologic: Reports as per HPI Meds Home Medications and Allergies Home Medications ?Medication ?Instructions ?Recorded ?Confirmed ?Type amitriptyline 50 mg tablet 50 mg PO HS #30 tabs 03/04/24 01/15/25 Rx aripiprazole 2 mg tablet 2 mg PO DAILY 05/09/24 01/15/25 History ergocalciferol (vitamin D2) 1,250 1,250 mcg PO WEEKLY #4 caps 07/07/24 01/15/25 Rx mcg (50,000 unit) capsule atorvastatin 40 mg tablet 40 mg PO DAILY #90 tabs 10/16/24 01/15/25 Rx diphenoxylate-atropine 2.5 1 tab PO TID 90 days #270 tabs 11/26/24 01/15/25 Rx mg-0.025 mg tablet ciclopirox 0.77 % topical gel 1 applic topical DAILY 11/30/24 01/15/25 History dicyclomine 10 mg capsule 10 mg PO TIDP PRN abdominal pain 11/30/24 01/15/25 History duloxetine 60 mg capsule,delayed 120 mg PO DAILY 11/30/24 01/15/25 History release tizanidine 4 mg tablet See Rx Instructions .Route 01/01/25 01/15/25 Rx .COMPLEX #90 ea furosemide 40 mg tablet 40 mg PO DAILYP PRN Edema #30 tabs 01/02/25 01/15/25 Rx clonidine HCl 0.1 mg tablet See Rx Instructions .Route 01/07/25 01/15/25 Rx .COMPLEX #180 tabs estradiol 0.25 mg/0.25 gram (0.1 1 packet transdermal DAILY 01/08/25 01/15/25 History %) transdermal gel packet hydromorphone 4 mg tablet 4 mg PO Q4HP PRN Severe Pain 01/08/25 01/15/25 Rx (Scale Score 7-10) #60 tabs nystatin 100,000 unit/gram topical 1 applic topical BID Rash #30 grams 01/08/25 01/15/25 Rx cream oxycodone 10 mg tablet 10 mg PO Q4HP PRN Moderate Pain 01/08/25 01/15/25 Rx (Scale Score 5-6) #180 tabs sulfamethoxazole 400 1 tab PO DAILY 90 days #90 tabs 01/08/25 01/15/25 Rx mg-trimethoprim 80 mg tablet tretinoin 0.05 % topical cream 1 applic topical HS #45 grams 01/08/25 01/15/25 Rx (Retin-A) amlodipine 5 mg tablet 5 mg PO HS #90 tabs 01/11/25 01/15/25 Rx levothyroxine 25 mcg tablet 25 mcg PO DAILY #90 tabs 01/11/25 01/15/25 Rx losartan 50 mg tablet 75 mg (1.5 x 50 mg) PO DAILY #135 01/11/25 01/15/25 Rx tabs sulfamethoxazole 800 1 tab PO BID 5 days #10 tabs 01/12/25 01/15/25 Rx mg-trimethoprim 160 mg tablet New Prescriptions to Start Prescriptions: Allergies Allergy/AdvReac Type Severity Reaction Status Date / Time ciprofloxacin (From Cipro) Allergy Intermediate Muscle Pain Verified 01/15/25 11:20 levofloxacin (From Levaquin) AdvReac Rash Verified 01/15/25 11:20 Exam Data for Last 24 hours Vital signs and Labs for Last 24 Hours: Temp Pulse Resp BP Pulse Ox O2 Del Method O2 Flow Rate 98.3 F 113 H 24 178/79 H 99 Room Air 2 01/25/25 20:33 01/25/25 23:00 01/25/25 23:00 01/25/25 23:00 01/25/25 23:00 01/25/25 23:00 01/25/25 21:00 Laboratory Results - last 24 hr 01/25/25 14:30: WBC 19.7 H D, RBC 4.99, Hgb 14.7, Hct 44.6, MCV 89.4, MCH 29.5, MCHC 33.0, RDW 13.5, Plt Count 560 H D, MPV 9.2, Neut % (Auto) 93.8 H, Lymph % (Auto) 3.9 L, [place] % (Auto) 1.4 L, Eos % (Auto) 0.0 L, Baso % (Auto) 0.3, Neut # (Auto) 18.5 H, Lymph # (Auto) 0.8, [place] # (Auto) 0.3, Eos # (Auto) 0.0, Baso # (Auto) 0.1, ESR 15, PT 10.8, INR 0.97, APTT 22.5 L, VBG pH 7.37, VBG pCO2 33.6 L, VBG pO2 48.2 H, VBG HCO3 19.2 L, VBG Total CO2 20.2 L, VBG O2 Saturation 84.1 H, VBG Base Excess -6.1 L, VBG Lactic Acid 9.3 H, Sodium 135 L, Potassium 4.8, Chloride 98, Carbon Dioxide 20 L, Anion Gap 21.8 H, BUN 22 H, Creatinine 1.50 H D, Estimated Creat Clear 38, Estimated GFR 34 L, Est GFR ( Amer) 41 L D, Glucose 248 H D, Calcium 10.0, Magnesium 2.3, Total Bilirubin 0.4, AST 56 H D, ALT 59 D, Alkaline Phosphatase 179 H, Total Creatine Kinase 28 L 01/25/25 14:30: Total Creatine Kinase 27 L, Troponin I 0.02, NT-Pro-B Natriuret Pep 5100 H, Total Protein 8.9 H, Albumin 4.8, Globulin 4.1 H, Albumin/Globulin Ratio 1.2, Salicylates < 1.0 L, Acetaminophen < 10 L, Plasma/Serum Alcohol < 10 01/25/25 15:53: Urine Color Yellow, Urine Appearance Clear, Urine pH 5.5, Ur Specific [place] <= 1.005, Urine Protein Trace, Urine Glucose (UA) Negative, Urine Ketones Negative, Urine Blood Negative, Urine Nitrate Negative, Urine Bilirubin Negative, Urine Urobilinogen 0.2, Ur Leukocyte Esterase Negative, Urine RBC None, Urine WBC None, Ur Squamous Epith Cells None, Urine Bacteria None, Urine Opiates Screen Positive H, Urine Methadone Screen Negative, Ur Barbituates Screen Negative, Ur Phencyclidine Scrn Negative, Ur Amphetamines Screen Negative, U Benzodiazepines Scrn Positive H, Urine Cocaine Screen Negative, U Marijuana (THC) Screen Negative 01/25/25 16:45: Troponin I 0.03 01/25/25 16:46: VBG pH 7.48 H, VBG pCO2 24.4 L, VBG pO2 37.8, VBG HCO3 17.9 L, VBG Total CO2 18.7 L, VBG O2 Saturation 78.2 H, VBG Base Excess -5.5 L, VBG Lactic Acid 8.8 H 01/25/25 19:55: CSF Volume 9.5 01/25/25 19:55: CSF Volume 9.5, CSF Appearance Clear 01/25/25 19:55: CSF Appearance Clear, CSF WBC 2 01/25/25 19:55: CSF WBC 1, CSF RBC 1 01/25/25 19:55: CSF RBC 1, CSF Mononuclear WBCs % 8 01/25/25 19:55: CSF Mononuclear WBCs % 7, CSF Polynuclear WBCs % 2 01/25/25 19:55: CSF Polynuclear WBCs % 1, CSF Glucose 105 H, CSF Total Protein 100.0 H 01/25/25 19:55: CSF Total Protein 98.0 H 01/25/25 21:04: Lactate 2.5 H, Troponin I 0.06 H 01/25/25 23:31: Lactate 2.6 H I & O for Last 24 hours: Intake & Output 01/23/25 01/24/25 01/25/25 01/26/25 23:59 23:59 23:59 23:59 Intake Total 1770 / 1770 Output Total 0 / 0 Balance 1770 / 1770 Weight 80.014 kg Microbiology Reports for the Last 24 Hours: Microbiology 01/25/25 19:55 Cerebral Spinal Fluid Gram Stain - Final Constitutional Constitutional: moderate distress, chronically ill appearing and agitated *Routine HEENT Exam Head: Present normocephalic and atraumatic Eye: Present PERRL ENT: Present mucous membranes dry *Routine Neck Exam Neck: Present supple and full ROM *Routine Respiratory Exam Respiratory: Present normal respiratory effort *Routine Cardiovascular Exam Cardiovascular: Present tachycardia *Routine Abdominal Exam Abdominal: Present soft and normoactive bowel sounds *Routine Rectal Exam Rectal:: deferred *Routine Genitalia Exam Genitalia:: deferred *Routine Skin Exam Skin: Present intact and dry *Routine Neurological Exam Neurological: Present altered mental status and moving all extremities Routine Psychiatric Exam Psychiatric: Present unable to assess Assessment and Plan *Assessment and plan (1) Severe sepsis: Status: Acute Category: Medical Code(s): A41.9 - Sepsis, unspecified organism; R65.20 - Severe sepsis without septic shock (2) Hypertensive emergency: Status: Acute Category: Medical Code(s): I16.1 - Hypertensive emergency (3) Subarachnoid hemorrhage: Status: Acute Category: Medical Code(s): I60.9 - Nontraumatic subarachnoid hemorrhage, unspecified (4) Witnessed seizure-like activity: Status: Acute Category: Medical Code(s): R56.9 - Unspecified convulsions (5) Chronic kidney disease: Status: Acute Qualifiers: Chronic kidney disease stage: stage 3 (moderate) Chronic kidney disease stage 3 subtype: stage 3b (GFR 30-44) Qualified Code(s): N18.32 - Chronic kidney disease, stage 3b Category: Medical Code(s): N18.9 - Chronic kidney disease, unspecified (6) AMS (altered mental status): Status: Acute Qualifiers: Altered mental status type: disorientation Qualified Code(s): R41.0 - Disorientation, unspecified Category: Medical Code(s): R41.82 - Altered mental status, unspecified (7) Hypothyroidism: Status: Chronic Qualifiers: Hypothyroidism type: acquired Qualified Code(s): E03.9 - Hypothyroidism, unspecified Category: Medical Code(s): E03.9 - Hypothyroidism, unspecified (8) HLD (hyperlipidemia): Status: Acute Qualifiers: Hyperlipidemia type: mixed hyperlipidemia Qualified Code(s): E78.2 - Mixed hyperlipidemia Category: Medical Code(s): E78.5 - Hyperlipidemia, unspecified (9) HTN (hypertension), benign: Status: Acute Category: Medical Code(s): I10 - Essential (primary) hypertension (10) Chronic prescription opiate use: Status: Acute Category: Medical Code(s): Z79.891 - terminal system operator (current) use of opiate analgesic (11) Ileostomy present: Status: Acute Category: Medical Code(s): Z93.2 - Ileostomy status Plan 1. Severe sepsis: Noted to be hypotensive and hypoxic for EMS-oxygen saturations in the 80s and placed on a 15 L nonrebreather prior to arrival. Lactic acid 2.5, WBC 19.7 heart rate 120. Cultures obtained within the emergency department, broad-spectrum IV antibiotics initiated vancomycin and Zosyn along with 1 L LR fluid bolus. Recently admitted and treated for enteropathogenic E. coli. Started on azithromycin at discharge-> no notable diarrhea or obvious abdominal pain or discomfort. Imaging study CT abdomen fairly unremarkable. Follow-up lactic acid, resume IV fluids. CSF obtained by ED provider resulted while in ICU-protein level 98-otherwise noted to be clear w/ 1+ WBC. Blood and urine culture obtained and pending. ICU admit as patient is high risk for decompensation. 2. Hypertensive emergency: Hypertensive state steadily elevated upon arrival to the ICU. Blood pressure ranging from 170-200 diastolic 80-100 range. Received 1 dose metoprolol IV without significant change. Cardene drip initiated. Telemetry monitoring continued, frequent monitoring blood pressure per titration Cardene drip to maintain systolic blood pressure less than 150. This was discussed with neurology who agreed with current treatment. 3. Subarachnoid hemorrhage: CT head noted small subarachnoid hemorrhage with recommendation to repeat within 24 hours. Patient unable to specify injury or fall. Not on anticoagulation. Per chart review it was noted patient sustained head trauma but this was noted to be in July of this year. It was noted at that time patient should return for follow-up CT and in follow-up with due to memory loss. Discussed case with on-call [facility] neurology due to abnormal findings w/ CSF, CT head subarachnoid hemorrhage and seizure-like activity that occurred while in the emergency department. Neurology recommended transfer for further workup/closer observation with their neurology team. Case was also discussed with the technical research scientist at [facility] who agreed and accepted patient for transfer. Continue to monitor neurostatus closely to monitor for any acute progressive change. Neurochecks q2h. 4. Witnessed seizure-like activity: While in the emergency department provider noted seizure-like activity patient was foaming at the mouth. Patient received Versed during event and appeared to be postictal thereafter. Patient received loading dose of Keppra. Per chart history no known prior seizure activity. No reoccurring seizure-like activity while in the ICU. Resumed Keppra-> seizure precautions. As noted above patient will be transferred to [facility] for further evaluation/treatment with their neurology service. 5. AMS: Suspect multifactorial in nature due to noted above activity/findings. Continue treatment as noted above/plan. Will continue to monitor neurostatus closely. Fall precaution due to agitation. 6. CKD: Creatinine 1.5, GFR 34. Approximately at baseline creatinine of 1.2?1.6. Continue to monitor as needed. Avoid/ monitor nephrotoxic medication. 7. Hypothyroidism: Home regimen of Synthroid-> TSH with morning labs. 8. HTN/HLD: Presented above patient hypertensive state on Cardene drip. Resume antihypertensive medication and statin when appropriate. Patient currently altered unable to take oral medications safely at this time. Resume close monitoring of blood pressure with Cardene drip. 9. Chronic prescription opiate use: Chronic functional abdominal pain: Continues on on chronic oxycodone plus hydromorphone for breakthrough pain. There was suspected polypharmacy use due to altered mental state- received Narcan in the emergency department without improvement. Holding sedative medications due to current state. Monitor closely due to chronic opiate use. 10. Ileostomy present: History of bowel perforation underwent surgical procedure at [facility]-> imaging obtained abdomen without any acute findings. Ileostomy in place and functioning. Stool present in bag, soft brown formed stool. 11. DVT prophylaxis: SCD's This case was discussed with the emergency department provider, agreed with ICU for closer observation. Initial lactic acid the emergency department 2.5, repeat level 2.6. Received 1 L bolus of LR, with continuous fluids. Cultures pending, broad-spectrum IV antibiotics Zosyn, vancomycin. Due to abnormal finding CSF fluid Zovirax initiated. Resume Keppra due to seizure-like activity. CT head noted possible small subarachnoid hemorrhage. Discussed findings with [facility] neurology who advised transfer. This case was also discussed with the ICU technical research scientist at [facility] who agreed and accepted patient. Patient is high risk for decompensation, will need close observation with an ICU. Patient's notified of status and pending transfer.
[2025-01-26 00:10] VITALS: PULSE 120
--- NOTE | 2025-01-26 00:10 | PC.NURSE ---
Notified [facility] charge nurse pt will be transferring by helicopter.
--- NOTE | 2025-01-26 00:38 | PC.NURSE ---
Patient transfered off ICU unit via [place] [employer] @00:40 to [facility].
--- NOTE | 2025-01-26 08:31 | P.EN_ITS ---
Upon arrival to ICU SYS BP steadily increased to the 200 range with diastolic pressures 90-100. Cardene gtt ordered. FACT CHECKER reported critical lab-CSF total protein-98. Due to complexity and limiting neurology services within our facility I discussed this case our warehouse engineer for transfer. Discussed with [facility] neurology and fashion styling intern concerning CT head finding, CSF f luid results and seizure activity, agreed and accepted transfer for closer observation with neurology.Patient transferred via flight to [facility].
--- NOTE | 2025-01-26 08:31 | EXP.EVENT.NO ---
Upon arrival to ICU SYS BP steadily increased to the 200 range with diastolic pressures 90-100. Cardene gtt ordered. POST GRADUATE INTERNSHIP reported critical lab-CSF total protein-98. Due to complexity and limiting neurology services within our facility I discussed this case our data warehouse analyst for transfer. Discussed with [facility] neurology and stage setting painter apprentice concerning CT head finding, CSF fluid results and seizure activity, agreed and accepted transfer for closer observation with neurology.Patient transferred via flight to [facility].
--- NOTE | 2025-01-28 19:19 | EXP.DCTXFER ---
Discharge/Transfer Plan of Care Resident has been informed of condition and prognosis?: Yes Mobility Status: transition only Rehab Potential: Innapropriate for Skilled Therapy I concur with the most recent History & Physical: Yes Certification: I have reviewed and agree with this resident's plan of care. I certify that post-hospital intermediate facility services are required to be given on an inpatient basis because of the need for intermediate care on a continuing basis for the condition(s) for which he/she is receiving inpatient hospital services prior to admission to swing bed. I also certify that the resident meets existing SNF level of care definition.
--- NOTE | 2025-01-28 19:25 | EXP.DC.SUM ---
General Admission date:: 01/25/25 Discharge date: 01/25/25 HPI HPI HPI: Patient is a 74-year-old female with past medical history significant for CKD stage III, obstruction of small intestine, post colectomy, hypothyroidism, hypertension, hyperlipidemia, opiate use, memory loss, arthritis. Presents to [facility] after she was found down by her per EMS. It was also noted per EMS she was initially hypotensive and hypoxic with oxygen saturations in the 80s. She was placed on a 15 L nonrebreather and transferred via EMS to the emergency department. History provided per staff and chart review, unable to obtain history due to underlying confusion. Patient alert but disoriented, unable to follow commands or answer questions appropriately. Noted be diaphoretic, hypertensive and tachycardic. ED provider also noted seizure-like activity while in the emergency department. Reports patient was foaming at the mouth. Received IV Keppra. LP performed per ED provider. CSF protein 98 resulted after transfer to ICU. Due to complexity and limiting neurology services within our facility I discussed this case with [facility] neurology and clinical laboratory aides teacher due to CT head finding, CSF fluid results and seizure activity. Recommended transfer for closer observation with neurology. ED workup included laboratory studies and imaging, including C-spine, T-spine, L-spine with no acute findings. CT chest and pelvis negative. CT abdomen and pelvis noted ostomy and moderate amount of stool. CT head noted small subarachnoid hemorrhage. Leukocytosis 19.7, lactic acid 2.5, BMP 5100. CSF total protein 98. Venous blood gas CO2 33.6, HCO3 19.2. Hospital Course Hospital Course Hospital Course: Presents with altered mental status to the emergency department. Noted to be hypotensive and hypoxic per EMS-oxygen saturations in the 80s and placed on a 15 L nonrebreather prior to arrival. Lactic acid 2.5, WBC 19.7 heart rate 120. Cultures obtained within the emergency department, broad-spectrum IV antibiotics initiated vancomycin and Zosyn along with 1 L LR fluid bolus. Tox screen positive for opiates and benzos which is consistent with home medication. Received Narcan without improvement. Witnessed seizure activity while in the emergency department. No known history of seizures. Received IV Keppra within the ED. Imaging scans obtained which included CT abdomen pelvis, noted ostomy and moderate amount of stool. CT head noted small subarachnoid hemorrhage. Significant laboratory findings-Leukocytosis 19.7, lactic acid 2.5, BMP 5100. CSF total protein 98. Venous blood gas CO2 33.6, HCO3 19.2. CSF protein resulting after transfer to ICU. While in the intensive care patient blood pressure significantly elevated into the 200-210 systolic range and diastolic 90-110 range. Placed on Cardene drip. Blood pressure responded, maintaining 150 systolic pressure. Due to complexity and limiting neurology services within our facility I discussed case with [facility] neurology and clinical laboratory aides teacher group Juanita. [facility] agreed and accepted patient for transfer for closer observation with neurology. Plans discussed with warehouse order puller. Patient transferred via flight at approximately 2330. Nursing staff updated for transfer plans. Patient critically ill but stable upon transfer. Exam Data for Last 24 hours Vital signs and Labs for Last 24 Hours: Temp Pulse Resp BP Pulse Ox O2 Del Method O2 Flow Rate 98.3 F 120 H 25 H 165/66 H 100 Room Air 2 01/25/25 20:33 01/26/25 00:10 01/26/25 00:00 01/26/25 00:00 01/26/25 00:00 01/26/25 00:00 01/25/25 21:00 Laboratory Results - last 24 hr 01/25/25 19:55: CSF Cryptococcus Ag Negative, CSF Cryptoco Ag Clt Rfx Not indicated I & O for Last 24 hours: Intake & Output 01/25/25 01/26/25 01/27/25 01/28/25 23:59 23:59 23:59 23:59 Intake Total 1823.333 / 1823.333 470.833 / 470.833 Output Total 0 / 400 400 / 400 Balance 1823.333 / 1423.333 70.833 / 70.833 Weight 80.014 kg Microbiology Reports for the Last 24 Hours: Microbiology 01/25/25 20:39 Rectum CRE Surveillance Culture - Final Negative 01/25/25 19:55 Cerebral Spinal Fluid - Final 01/25/25 19:55 Cerebral Spinal Fluid Acid Fast Bacilli Smear - Final 01/25/25 19:55 Cerebral Spinal Fluid Gram Stain - Final 01/25/25 19:55 Cerebral Spinal Fluid CSF Culture - Preliminary NO GROWTH AFTER 48 HOURS Constitutional Constitutional: moderate distress, chronically ill appearing and agitated *Routine HEENT Exam Head: Present normocephalic Eye: Present EOMI ENT: Present mucous membranes moist *Routine Neck Exam Neck: Present supple and full ROM *Routine Respiratory Exam Respiratory: Present normal respiratory effort *Routine Cardiovascular Exam Cardiovascular: Present RRR, Normal S1, Normal S2 and tachycardia *Routine Abdominal Exam Abdominal: Present soft and normoactive bowel sounds Comments: colostomy upper right abd *Routine Extremities Exam Extremities: Present full ROM Routine Back/Spine/Pelvis Exam Back/Spine: Present full ROM *Routine Skin Exam Skin: Present intact *Routine Neurological Exam Neurological: Present altered mental status Results Data Completed and Pending Labs on day of discharge: Labs from last 24 hours 01/25/25 19:55 CSF Cryptococcus Ag Negative CSF Cryptoco Ag Clt Rfx Not indicated Preliminary micro results at discharge 01/25/25 19:55 CSF Culture - Preliminary Cerebral Spinal Fluid NO GROWTH AFTER 48 HOURS 01/25/25 14:30 Blood Culture - Preliminary Blood NO GROWTH AFTER 48 HOURS 01/25/25 14:30 Blood Culture - Preliminary Blood NO GROWTH AFTER 48 HOURS Labs from last 24 hours 09/07/22 09/07/22 09/07/22 06:52 06:52 06:52 WBC 15.2 H RBC 2.90 L Hgb 8.0 L Hct 27.0 L MCV 93.1 MCH 27.4 MCHC 29.5 L RDW 16.4 Plt Count 908 H* MPV 7.2 L Neut % (Auto) 84.0 H Lymph % (Auto) 10.3 [place] % (Auto) 4.8 Eos % (Auto) 0.7 Baso % (Auto) 0.2 Neut # (Auto) 12.8 H Lymph # (Auto) 1.6 [place] # (Auto) 0.7 Eos # (Auto) 0.1 Baso # (Auto) 0.0 Total Counted 100 Neutrophils % (Manual) 87 H Lymphocytes % (Manual) 11 Monocytes % (Manual) 2 Platelet Estimate Marked increase RBC Morphology Hypochromasia 1+ Anisocytosis 1+ Macrocytosis 1+ Ovalocytes 1+ Sodium 136 Potassium 3.7 Chloride 100 Carbon Dioxide 30 Anion Gap 9.7 BUN 3 L Creatinine 0.50 L Estimated Creat Clear 65 Estimated GFR 122 Est GFR ( Amer) 148 Glucose 93 Calcium 8.2 L Magnesium 1.5 L Total Bilirubin 0.3 AST 26 ALT 25 Alkaline Phosphatase 322 H Total Protein 6.3 Albumin 2.5 L Globulin 3.8 H Albumin/Globulin Ratio 0.7 L TSH 4.36 Urine Color Urine Appearance Urine pH Ur Specific [place] Urine Protein Urine Glucose (UA) Urine Ketones Urine Blood Urine Nitrate Urine Bilirubin Urine Urobilinogen Ur Leukocyte Esterase Urine RBC Urine WBC Ur Squamous Epith Cells Urine Bacteria SARS-CoV-2 (PCR) Influenza A Untype (PCR) Influenza Type B (PCR) 09/06/22 09/06/22 09/06/22 13:47 11:30 10:45 WBC RBC Hgb Hct MCV MCH MCHC RDW Plt Count MPV Neut % (Auto) Lymph % (Auto) [place] % (Auto) Eos % (Auto) Baso % (Auto) Neut # (Auto) Lymph # (Auto) [place] # (Auto) Eos # (Auto) Baso # (Auto) Total Counted 100 Neutrophils % (Manual) 78 H Lymphocytes % (Manual) 16 Monocytes % (Manual) 6 Platelet Estimate Marked increase RBC Morphology 51 Hypochromasia 1+ Anisocytosis Macrocytosis 1+ Ovalocytes Sodium Potassium Chloride Carbon Dioxide Anion Gap BUN Creatinine Estimated Creat Clear Estimated GFR Est GFR ( Amer) Glucose Calcium Magnesium Total Bilirubin AST ALT Alkaline Phosphatase Total Protein Albumin Globulin Albumin/Globulin Ratio TSH Urine Color Yellow Urine Appearance Turbid Urine pH 6.0 Ur Specific [place] 1.025 Urine Protein 2+ Urine Glucose (UA) Negative Urine Ketones Negative Urine Blood Trace-i Urine Nitrate Negative Urine Bilirubin Negative Urine Urobilinogen 0.2 Ur Leukocyte Esterase 1+ A Urine RBC Occasional Urine WBC 5-10 Ur Squamous Epith Cells 3-5 Urine Bacteria 2+ SARS-CoV-2 (PCR) Not detected Influenza A Untype (PCR) Not detected Influenza Type B (PCR) Not detected Preliminary micro results at discharge 09/06/22 11:30 Urine Culture - Preliminary Urine,Catheterized Gram Negative [facility] CT scan - head: Status: image reviewed by me CT scan - abdomen: Status: image reviewed by hi DS: Diagnosis Discharge Diagnosis (1) Severe sepsis: Start date: 01/25/25 Start time: 21:00 Status: Acute Code(s): A41.9 - Sepsis, unspecified organism; R65.20 - Severe sepsis without septic shock (2) Hypertensive emergency: Start date: 01/25/25 Start time: 21:00 Status: Acute Code(s): I16.1 - Hypertensive emergency (3) Subarachnoid hemorrhage: Start date: 01/25/25 Start time: 17:00 Status: Acute Code(s): I60.9 - Nontraumatic subarachnoid hemorrhage, unspecified (4) Witnessed seizure-like activity: Start date: 01/25/25 Start time: 17:00 Status: Acute Code(s): R56.9 - Unspecified convulsions (5) Chronic kidney disease: Start date: 01/25/25 Start time: 21:00 Status: Acute Code(s): N18.9 - Chronic kidney disease, unspecified Qualifiers: Chronic kidney disease stage: stage 3 (moderate) Chronic kidney disease stage 3 subtype: stage 3b (GFR 30-44) Qualified Code(s): N18.32 - Chronic kidney disease, stage 3b (6) AMS (altered mental status): Start date: 01/25/25 Start time: 21:00 Status: Acute Code(s): R41.82 - Altered mental status, unspecified Qualifiers: Altered mental status type: disorientation Qualified Code(s): R41.0 - Disorientation, unspecified (7) Hypothyroidism: Start date: 01/25/25 Start time: 21:00 Status: Chronic Code(s): E03.9 - Hypothyroidism, unspecified Qualifiers: Hypothyroidism type: acquired Qualified Code(s): E03.9 - Hypothyroidism, unspecified (8) HLD (hyperlipidemia): Start date: 01/25/25 Start time: 21:00 Status: Acute Code(s): E78.5 - Hyperlipidemia, unspecified Qualifiers: Hyperlipidemia type: mixed hyperlipidemia Qualified Code(s): E78.2 - Mixed hyperlipidemia (9) HTN (hypertension), benign: Start date: 01/25/25 Start time: 21:00 Status: Acute Code(s): I10 - Essential (primary) hypertension (10) Chronic prescription opiate use: Start date: 01/25/25 Start time: 21:00 Status: Acute Code(s): Z79.891 - long-term (current) use of opiate analgesic (11) Ileostomy present: Start date: 01/25/25 Start time: 21:00 Status: Acute Code(s): Z93.2 - Ileostomy status Meds Home Medications and Allergies Home Medications ?Medication ?Instructions ?Recorded ?Confirmed ?Type amitriptyline 50 mg tablet 50 mg PO HS #30 tabs 12/03/24 10/16/25 Rx aripiprazole 2 mg tablet 2 mg PO DAILY 05/09/24 01/15/25 History ergocalciferol (vitamin D2) 1,250 1,250 mcg PO WEEKLY #4 caps 07/07/24 01/15/25 Rx mcg (50,000 unit) capsule atorvastatin 40 mg tablet 40 mg PO DAILY #90 tabs 10/16/24 01/15/25 Rx diphenoxylate-atropine 2.5 1 tab PO TID 90 days #270 tabs 11/26/24 01/15/25 Rx mg-0.025 mg tablet ciclopirox 0.77 % topical gel 1 applic topical DAILY 11/30/24 01/15/25 History Held on 01/28/25. Instructions: Deferring continuation of medication to accepting facility due to current state of altered mental status. Oral medications currently are not appropriate due to her mentation state. Will defer as noted. dicyclomine 10 mg capsule 10 mg PO TIDP PRN abdominal pain 11/30/24 01/15/25 History Held on 01/28/25. Instructions: Deferring continuation of medication to accepting facility due to current state of altered mental status. Oral medications currently are not appropriate due to her mentation state. Will defer as noted. duloxetine 60 mg capsule,delayed 120 mg PO DAILY 11/30/24 01/15/25 History release Held on 01/28/25. Instructions: Deferring continuation of medication to accepting facility due to current state of altered mental status. Oral medications currently are not appropriate due to her mentation state. Will defer as noted. tizanidine 4 mg tablet See Rx Instructions .Route 01/01/25 01/15/25 Rx .COMPLEX #90 ea furosemide 40 mg tablet 40 mg PO DAILYP PRN Edema #30 tabs 01/02/25 01/15/25 Rx clonidine HCl 0.1 mg tablet See Rx Instructions .Route 01/07/25 01/15/25 Rx .COMPLEX #180 tabs estradiol 0.25 mg/0.25 gram (0.1 1 packet transdermal DAILY 01/08/25 01/15/25 History %) transdermal gel packet hydromorphone 4 mg tablet 4 mg PO Q4HP PRN Severe Pain 01/08/25 01/15/25 Rx (Scale Score 7-10) #60 tabs nystatin 100,000 unit/gram topical 1 applic topical BID Rash #30 grams 01/08/25 01/15/25 Rx cream oxycodone 10 mg tablet 10 mg PO Q4HP PRN Moderate Pain 01/08/25 01/15/25 Rx (Scale Score 5-6) #180 tabs sulfamethoxazole 400 1 tab PO DAILY 90 days #90 tabs 01/08/25 01/15/25 Rx mg-trimethoprim 80 mg tablet tretinoin 0.05 % topical cream 1 applic topical HS #45 grams 01/08/25 01/15/25 Rx (Retin-A) amlodipine 5 mg tablet 5 mg PO HS #90 tabs 01/11/25 01/15/25 Rx levothyroxine 25 mcg tablet 25 mcg PO DAILY #90 tabs 01/11/25 01/15/25 Rx losartan 50 mg tablet 75 mg (1.5 x 50 mg) PO DAILY #135 01/11/25 01/15/25 Rx tabs sulfamethoxazole 800 1 tab PO BID 5 days #10 tabs 01/12/25 01/15/25 Rx mg-trimethoprim 160 mg tablet New Prescriptions to Start Prescriptions: Allergies Allergy/AdvReac Type Severity Reaction Status Date / Time ciprofloxacin (From Cipro) Allergy Intermediate Muscle Pain Verified 01/15/25 11:20 levofloxacin (From Levaquin) AdvReac Rash Verified 01/15/25 11:20 Discharge Plan Disposition Patient Disposition: Xfer Short-Term Hosp Condition: Critical Discharge Order Discharge Orders: Discharge Order (Routine); Ordered 01/28/25 Ordered By: Naz Paulino Follow up Plan Prescriptions/Medication Reconciliation: Held amitriptyline 50 mg tablet 50 mg PO HS Qty: 30 12RF aripiprazole 2 mg tablet 2 mg PO DAILY estradiol 0.25 mg/0.25 gram (0.1 %) gel in packet 1 packet transdermal DAILY sulfamethoxazole-trimethoprim 400-80 mg tablet 1 tab PO DAILY 90 Days Qty: 90 3RF nystatin 100,000 unit/gram cream 1 applic TOPICAL BID Qty: 30 5RF tretinoin [Retin-A] 0.05 % cream 1 applic topical HS Qty: 45 2RF hydromorphone 4 mg tablet 4 mg PO Q4HP PRN (Reason: Severe Pain (Scale Score 7-10)) Qty: 60 0RF oxycodone 10 mg tablet 10 mg PO Q4HP MDD No> 6/day PRN (Reason: Moderate Pain (Scale Score 5-6)) Qty: 180 0RF ergocalciferol (vitamin D2) 1,250 mcg (50,000 unit) capsule 1,250 mcg PO WEEKLY Qty: 4 1RF atorvastatin 40 mg tablet 40 mg PO DAILY Qty: 90 3RF diphenoxylate-atropine 2.5-0.025 mg tablet 1 tab PO TID 90 Days Qty: 270 3RF tizanidine 4 mg tablet See Rx Instructions .ROUTE .COMPLEX Qty: 90 0RF Dose Instruction: TAKE 1 TABLET BY MOUTH THREE TIMES DAILY NEEDED FOR MUSCLE SPASTICITY MAY CAUSE DROWSINESS Rx Instructions: TAKE 1 TABLET BY MOUTH THREE TIMES DAILY NEEDED FOR MUSCLE SPASTICITY MAY CAUSE DROWSINESS furosemide 40 mg tablet 40 mg PO DAILYP PRN (Reason: Edema) Qty: 30 1RF Hold Instructions: pending follow-up with PCP clonidine HCl 0.1 mg tablet See Rx Instructions .ROUTE .COMPLEX Qty: 180 0RF Dose Instruction: TAKE ONE TO TWO TABLETS BY MOUTH 2 TO 3 TIMES A DAY NEEDED FOR ANXIETY MAY CAUSE DROWSINESS Rx Instructions: TAKE ONE TO TWO TABLETS BY MOUTH 2 TO 3 TIMES A DAY NEEDED FOR ANXIETY MAY CAUSE DROWSINESS amlodipine 5 mg tablet 5 mg PO HS Qty: 90 3RF levothyroxine 25 mcg tablet 25 mcg PO DAILY Qty: 90 3RF losartan 50 mg tablet 75 mg PO DAILY Qty: 135 3RF Hold Instructions: Resume on 12/03/24. sulfamethoxazole-trimethoprim 800-160 mg tablet 1 tab PO BID 5 Days Qty: 10 0RF dicyclomine 10 mg capsule 10 mg PO TIDP PRN (Reason: abdominal pain) Hold Instructions: Deferring continuation of medication to accepting facility due to current state of altered mental status. Oral medications currently are not appropriate due to her mentation state. Will defer as noted. ciclopirox 0.77 % gel 1 applic topical DAILY Hold Instructions: Deferring continuation of medication to accepting facility due to current state of altered mental status. Oral medications currently are not appropriate due to her mentation state. Will defer as noted. Rx Instructions: Apply daily to affected toenail. Smooth with emery board weekly. duloxetine 60 mg capsule,delayed release(DR/EC) 120 mg PO DAILY Hold Instructions: Deferring continuation of medication to accepting facility due to current state of altered mental status. Oral medications currently are not appropriate due to her mentation state. Will defer as noted. Problem Reconciliation Problems Reviewed?: Yes Patient Discharge Instructions ACTIVITY: Bed rest DIET: NPO Stand Alone Forms: Transfer Record Print Language: Mohawk Providers Primary Care Provider: Connor Gomez Admit Provider: Efren Andres Attending Provider: Efren Andres
== END 2025-01-26 00:40 | disposition short-term general hospital (02) | DRG 871 ==
LOC: ER 20:00 → ICU 20:03
PROVIDERS: Nurse Practitioner; Student in an Organized Health Care Education/Training Program; Admitting Provider Family Medicine; Emergency Provider Student in an Organized Health Care Education/Training Program; PCP Family Medicine; Visit Provider Family Medicine
DX: A41.9 Sepsis, unspecified organism (principal); I60.9 Nontraumatic subarachnoid hemorrhage, unspecified; I16.1 Hypertensive emergency; I12.9 Hypertensive chronic kidney disease with stage 1 through stage 4 chronic kidney disease, or unspecified chronic kidney disease; R65.20 Severe sepsis without septic shock; E03.9 Hypothyroidism, unspecified; R56.9 Unspecified convulsions; N18.32 Chronic kidney disease, stage 3b; E78.2 Mixed hyperlipidemia; R09.02 Hypoxemia; R41.0 Disorientation, unspecified; Z93.2 Ileostomy status; Z79.891 Long term (current) use of opiate analgesic; Z88.1 Allergy status to other antibiotic agents; Z79.890 Hormone replacement therapy; Z79.899 Other long term (current) drug therapy; R10.84 Generalized abdominal pain; K59.00 Constipation, unspecified; R11.2 Nausea with vomiting, unspecified; K86.81 Exocrine pancreatic insufficiency; Z87.19 Personal history of other diseases of the digestive system
CPT/HCPCS: 36415; 70450; 71275; 72125; 72128; 72131; 72192; 74177; 80053; 80307; 80320; 80329; 81001; 82550; 82803; 82945; 83605; 83735; 83880; 84155; 84484; 85025; 85610; 85651; 85730; 87040; 87070; 87081; 87101; 87116; 87186; 87205; 87529; 87899; 89051; 93005; 99285; C1751; J0133; J0290; J1920; J1953; J2250; J2312; J2404; J2405; J2543; J3375; J7030; J7050; J7120; Q9967

== ENCOUNTER 2025-02-05 00:07 | Emergency (ER) | payer MEDICARE, SELFPAY ==
--- OUTSIDE RECORDS SUMMARY | 2024-04-17 06:45 | XMS_ITS ---
Author Organization [facility] Address [address] [place] [address] Care Team Providers Care Conveyor Feeder Name Role Phone Timothy Granda DO Primary Care Provider Tha Chaudhry Unavailable [phone] Jesus Rose Unavailable REASON FOR VISIT NEW PATIENT Encounters Encounter Location Date Provider Diagnosis [facility] [address] [place] [address] 04/17/2024 Jesus Rose Plan Of Treatment No Information Progress Notes * KRISTACIERRA MonroeMaryellenOB:[birth year] (74 yo F)Acc No.[id number]:04/17/2024 Progress Notes Patient: Farrah SEAY Provider: Leelee Rose :1950 A ge:73 Y S ex:Female Date:04/17/2024 [facility] Pcp:Timothy Granda DO Subjective: * Chief Complaints: * 1 . NEW PATIENT. * Medical History: Objective: * Vitals: Assessment: Plan: * Treatment: * * Electronic signature of Reza Rose APRN on 02/05/2025 at 12:30 AM EST Sign off status: Pending * Provider: Leelee Rose Date: 0 04/17/2024 Generated for Brisa conway/Sahra/Angela on: 04/07/2024 12:30 AM EST
--- OUTSIDE RECORDS SUMMARY | 2024-05-13 08:30 | XMS_ITS ---
Author Organization [facility] Address [address] [place] [address] Care Team Providers Care Shipping Clerk/Admin Name Role Phone Timothy Granda DO Primary Care Provider Tha Chaudhry Unavailable [phone] REASON FOR VISIT NEW PATIENT Encounters Encounter Location Date Provider Diagnosis [facility] [address] [place] [address] 05/13/2024 Tha Krishnamurthy Plan Of Treatment No Information Progress Notes * Giselle ATKINSONOB:[birth year] (74 yo F)Acc No.[id number]:05/13/2024 Progress Notes Patient: Farrah SEAY Provider: Sarabjit Krishnamurthy MD :1950 A ge:73 Y S ex:Female Date:05/13/2024 [facility] Pcp:Timothy Granda DO Subjective: * Chief Complaints: * 1 . NEW PATIENT. * Medical History: Objective: * Vitals: Assessment: Plan: * Treatment: * * Electronic signature of Didier Krishnamurthy MD on 02/05/2025 at 12:30 AM EST Sign off status: Pending * Provider: Sarabjit Krishnamurthy MD Date: 0 05/13/2024 Generated for Brisa conway/Sahra/Jujuitting on: 04/07/2024 12:30 AM EST
--- OUTSIDE RECORDS SUMMARY | 2024-06-17 08:30 | XMS_ITS ---
Author Organization [facility] Address [address] [place] [address] Care Team Providers Care Poultry Buyer Name Role Phone Timothy Granda DO Primary Care Provider Tha Chaudhry Unavailable [phone] REASON FOR VISIT NEW PATIENT Encounters Encounter Location Date Provider Diagnosis [facility] [address] [place] [address] 06/17/2024 Tha Krishnamurthy Plan Of Treatment No Information Progress Notes * Giselle ATKINSONOB:[birth year] (74 yo F)Acc No.[id number]:06/17/2024 Progress Notes Patient: Farrah SEAY Provider: Sarabjit Krishnamurthy MD :1950 A ge:73 Y S ex:Female Date:06/17/2024 [facility] Pcp:Timothy Granda DO Subjective: * Chief Complaints: * 1 . NEW PATIENT. * Medical History: Objective: * Vitals: Assessment: Plan: * Treatment: * * Electronic signature of Didier Krishnamurthy MD on 02/05/2025 at 12:33 AM EST Sign off status: Pending * Provider: Sarabjit Krishnamurthy MD Date: 0 06/17/2024 Generated for Brisa conway/Sahra/eTnamsmitting on: 04/07/2024 12:33 AM EST
--- OUTSIDE RECORDS SUMMARY | 2025-01-19 09:00 | XMS_ITS | Encounter Summary ---
Author Organization Healthcare Address [address] [place] [address] Care Team Providers Care Certification Technician Name Role Phone Timothy Granda Primary Care Provider [phone] Reason for Referral * Consultation (Routine) - Authorized Specialty Diagnoses / Procedures Referred By Kendal quinones Referred To Contact Diagnoses Acute kidney injury Vitamin D deficiency Gutierrez Domínguez MD [address] [place] [address] Phone: tel: fax: Referral ID Status Reason Start Date Expiration Date V isits Requested Visits Authorized [id number] Authorized 01/19/2025 07/21/2026 1 1 Reason for Visit * Reason Comments Consult Encounter Details Date Type Department Care Team (Latest Contact Info) Description 01/19/2025 10:00 AM EDT Office Visit [facility] Nephrology, Bone & Mineral Metabolism [address], [address] [place] [address] Gutierrez Domínguez MD [address] [place] [phone] Acute kidney injury (Primary Dx); Vitamin [...] place to sleep or slept in a senior living (including now)? 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 0 11/15/2023 CAGE Questionnaire Score 0 024 Utilities Answer Date Recorded In the past 12 months has th e [employer], gas, oil, or water company threatened to [...] Social Connections: Low Risk (04/12/2023) Received from [employer] ([place], [place], [place], [place]) Family and Community [...] Results Component Value Date TSH 1.72 07/22/2023 [id number] 78 (L) 09/01/2022 FREET4 1.5 07/22/2023 Imaging: [...] 2024 Electrolytes, acid/base, volume status wnl Urine: [place] Anatomy: normal appearing kidneys on CT abdomen [...] laboratory studies in the chart and at [facility] over the past several years. She has [...] months Gutierrez Domínguez MD Division of Nephrology [facility] Counseling Documentation: The patient was counseled regarding COUNSELING TOPICS: diagnostic results, prognosis, risks and benefit of treatment options, risk factor reductions, instructions for management, patient and family education, medication changes, diagnostic impressions, Heart healthy diet, regular physical activity and weight control, Avoidance of NSAIDs and other nephrotoxins, and senior care nature of condition. Education provided was verbal [...] Expiration Date: 07/23/2026 Release to patient in [facility]: Immediate Urinalysis with reflex microscopic (Culture NOT Included) Standing Status: Future Expected Date: 07/18/2025 Expiration Date: 07/23/2026 Release to patient in [facility]: Immediate Vitamin D 25 Hydroxy Standing Status: Future Expected Date: 07/18/2025 Expiration Date: 07/23/2026 Release to patient in [facility]: Immediate PTH Intact Total Standing Status: Future Expected Date: 07/18/2025 Expiration Date: 07/23/2026 Release to patient in [facility]: Immediate Albumin-creatinine ratio, urine, random Standing Status: Future Expected Date: 07/18/2025 Expiration Date: 07/23/2026 Release to patient in [facility]: Immediate Protein, Random, Urine with Creatinine Standing Status: Future Expected Date: 07/18/2025 Expiration Date: 07/23/2026 Release to patient in [facility]: Immediate Renal Function Panel, Plasma Standing Status: Future Expected Date: 07/18/2025 Expiration Date: 07/23/2026 Release to patient in [facility]: Immediate Cystatin C Standing Status: Future Expected Date: 07/21/2025 Expiration Date: 07/24/2026 Release to patient in [facility]: Immediate [1] Follow Up Nephrology Standing Status: [...] [1] Past Medical History: Diagnosis Date A-fib ([facility]) Abnormal findings on diagnostic imaging of other specified body structures Thickened endometrium TIP (acute kidney injury) ([facility]) 08/04/2022 Cr 1.38 on admission baseline .9 [...] disorders History of depression Protein calorie malnutrition ([facility]) 08/14/2022 Pt on TPN during previous admission, no evidence of continuing condition during this admission Sepsis, due to unspecified organism, unspecified whether acute organ dysfunction present ([facility]) 07/22/2023 Severe protein-calorie malnutrition ([facility]) 08/14/22 PICC and TPNEnteral tube feeds via [facility] Venous disease 08/04/2022 History of b/l venous iliac stents - on Eliquis [2] Patient Active Problem List Diagnosis Hx of Clostridium difficile infection Hypertension Hypothyroidism Paroxysmal atrial fibrillation ([facility]) Dysphagia Ileostomy in place ([facility]) Diverticulosis Intra-abdominal fluid collection Functional diarrhea Small [...] Social Connections: Low Risk (04/12/2023) Received from [facility] ([place], [place], [place], [place]) Family and Community [...] Results Component Value Date TSH 1.72 07/22/2023 [id number] 78 (L) 09/01/2022 FREET4 1.5 07/22/2023 Imaging: [...] 2024 Electrolytes, acid/base, volume status wnl Urine: [place] Anatomy: normal appearing kidneys on CT abdomen [...] laboratory studies in the chart and at [facility] over the past several years. She has [...] months Gutierrez Domínguez MD Division of Nephrology [facility] Counseling Documentation: The patient was counseled regarding COUNSELING TOPICS: diagnostic results, prognosis, risks and benefit of treatment options, risk factor reductions, instructions for management, patient and family education, medication changes, diagnostic impressions, Heart healthy diet, regular physical activity and weight control, Avoidance of NSAIDs and other nephrotoxins, and senior care nature of condition. Education provided was verbal [...] Expiration Date: 07/23/2026 Release to patient in [facility]: Immediate Urinalysis with reflex microscopic (Culture NOT Included) Standing Status: Future Expected Date: 07/18/2025 Expiration Date: 07/23/2026 Release to patient in [facility]: Immediate Vitamin D 25 Hydroxy Standing Status: Future Expected Date: 07/18/2025 Expiration Date: 07/23/2026 Release to patient in [facility]: Immediate PTH Intact Total Standing Status: Future Expected Date: 07/18/2025 Expiration Date: 07/23/2026 Release to patient in [facility]: Immediate Albumin-creatinine ratio, urine, random Standing Status: Future Expected Date: 07/18/2025 Expiration Date: 07/23/2026 Release to patient in [facility]: Immediate Protein, Random, Urine with Creatinine Standing Status: Future Expected Date: 07/18/2025 Expiration Date: 07/23/2026 Release to patient in [facility]: Immediate Renal Function Panel, Plasma Standing Status: Future Expected Date: 07/18/2025 Expiration Date: 07/23/2026 Release to patient in [facility]: Immediate Cystatin C Standing Status: Future Expected Date: 07/21/2025 Expiration Date: 07/24/2026 Release to patient in [facility]: Immediate [1] Follow Up Nephrology Standing [...] C CKD stage 3a, GFR 45-59 ml/min ([facility]) Relevant Medications atorvastatin (Lipitor) 40 MG tablet furosemide (Lasix) 40 MG tablet Other Relevant Orders Cystatin C Chronic kidney disease-mineral and bone disorder (CKD-MBD) Relevant Medications atorvastatin (Lipitor) 40 MG tablet furosemide (Lasix) 40 MG tablet Secondary hyperparathyroidism of renal origin ([facility]) Hyperlipidemia Relevant Medications atorvastatin (Lipitor) 40 MG [...] disorders History of depression Protein calorie malnutrition ([facility]) 08/14/2022 Pt on TPN during previous admission, [...] Acute kidney injury Hypothyroidism Paroxysmal atrial fibrillation ([facility]) Dysphagia Ileostomy in place ([facility]) Diverticulosis Intra-abdominal fluid collection Functional diarrhea Small bowel stricture Vitamin D deficiency CKD stage 3a, GFR 45-59 ml/min ([facility]) Chronic kidney disease-mineral and bone disorder (CKD-MBD) Secondary hyperparathyroidism of renal origin ([facility]) Hyperlipidemia [3] Past Surgical History: Procedure Laterality Date BREAST LUMPECTOMY Left Left Breast Lumpectomy from [facility] SECTION, LOW TRANSVERSE N/A Section from [facility] ILEOSTOMY N/A ILEOSTOMY 09/10/2023 Ex Lap, small bowel resection x 2, creation of end ilesotomy ILEOSTOMY CLOSURE 05/24/2023 open closure of end ileostomy with ileosigmoid anastomosis. TOTAL HIP ARTHROPLASTY N/A Total Hip Replacement from [facility] TOTAL SHOULDER ARTHROPLASTY N/A Shoulder Arthroplasty Total Shoulder Replacement from [facility] TUBAL LIGATION N/A Tubal Ligation from [facility] [4] Family History Problem Relation Name Age [...] Upcoming Encounters Date Type Department Care Team ([facility] st Contact Info) Description 07/20/2025 10:40 AM EDT Office Visit Professional [facility] Nephrology, Bone & Mineral Metabolism [address], [address] [place] [address] Gutierrez Domínguez MD [address] [place] [address] Scheduled Orders Name Type Priority Associated Diagnoses Orde r Schedule CBC W/O Differential Lab Routine Acute kidney injury ([facility]) Vitamin D deficiency Expected: 07/18/2025 (Approximate), Expires: [...] deficiency CKD stage 3a, GFR 45-59 ml/min ([facility]) Expected: 07/21/2025 (Approximate), Expires: 07/24/2026 Scheduled Referrals Name Type Priority Associated Diagnoses Order Schedule Follow Up Nephrology Outpatient Referral Routine Acute kidney injury ([facility]) Vitamin D deficiency Expected: 07/20/2025 (Approximate), Expires: 02/19/2026 documented as of this encounter Visit Diagnoses Diagnosis Acute kidney injury- Primary Vitamin D deficiency CKD stage 3a, GFR 45-59 ml/min ([facility]) Chronic kidney disease-mineral and bone disorder (CKD-MBD) Secondary hyperparathyroidism of renal origin ([facility]) Secondary hyperparathyroidism (of renal origin) Hypertension, unspecified type Hyperlipidemia, unspecified hyperlipidemia type documented in this encounter Additional Health Concerns Assessment Noted Time A fall risk assessment has been complete d for the patient 01/19/2025 10:00 AM EDT A Body Mass Index follow-up plan has been documented for the patient 01/20/2025 11:25 AM EDT documented as of this encounter Care Teams Certification Technician Relationship Specialty Start Date End Date Timothy Granda DO [address] [place] [address] PCP - General 05/25/23 documented as of this encounter
--- OUTSIDE RECORDS SUMMARY | 2025-01-26 00:09 | XMS_ITS | Encounter Summary ---
Author Organization [facility] Address [address] [place] [id number] Care Team Providers Care Ict Sales Representative Name Role Phone Connor Gomez MD Primary Care Provider [phone] Reason for Visit * Auth/Cert Specialty Diagnoses / Procedures Referred By Contac t Referred To Contact Diagnoses Seizures Possible CVA Referral ID Status Reason Start Date Expiration Date Visits Re quested Visits Authorized [id number] 1 1 Encounter Details Date Type Department Care Team (Late st Contact Info) Description 01/26/2025 1:09 AM EDT - 01/29/2025 2:01 PM EDT Hospital Encounter [facility] [address] [place] [id number] Rayshawn Baldwin MD [address] [place] [address] Andrew Barkley MD [address] [place] [address] Meli Hernandez MD [address] [address] Jessica Valdovinos DO [address] [facility] [address] [place] [address] Cognitive communication deficit (Primary Dx); PRES (posterior [...] and heating? Patient unable to answer 01/26/2025 [facility] Occupat ional Health - Occupational Stress [...] things needed for daily living? No 01/26/2025 [facility] Utilities Answer Date Recorded In the past [...] Patient unable to answer 01/26/2025 Preferred Language Nicaraguan 01/26/2025 Comments No Sex and Gender Information [...] from the original note were not included. [facility] Medicine Services DISCHARGE SUMMARY Patient Name: [...] paroxysmal A-fib recurrentUTIs who was transferred from [facility] on 01/26 to ICU. Per chart review, the patient was found by her shortly after crushing and snorting pain pills. She was obtunded, treated with Narcan but subsequently experienced seizure-like event and was treated with Ativan. At OSH, she had CT head that showed possible subarachnoid hemorrhage versus artifact. There was also concern for meningitis and she underwent LP. At [facility], MRI of brain revealed motion artifact but [...] Date/Time Blood Culture - Blood, Arm, Right [[id number]] (Normal) Collected: 01/25/25 1405 Lab Status: Preliminary result Specimen: Blood from Arm, Right Updated: 01/29/25314 Blood Culture No growth at 3 days Blood Culture - Blood, Blood, Port [[id number]] (Normal) Collected: 01/25/25 1400 Lab Status: Preliminary [...] MD 01/27/2025 2:05 AM EDT Workstation ID: [id number] EEG Result Date: 01/26/2025 Reason for referral: [...] present This report is transcribed using the ISIS dictation system. MRI Brain Without Contrast Result [...] MD 01/26/2025 1:54 AM EDT Workstation ID: [id number] CT Angiogram Head w AI Analysis of [...] MD 01/26/2025 1:54 AM EDT Workstation ID: [id number] CT Head Without Contrast Result Date: 01/26/2025 [...] MD 01/26/2025 1:46 AM EDT Workstation ID: [id number] Results for orders placed during the hospital [...] as: SYNTHROID, LEVOTHROID 25 mcg, Oral, Every Tea Taster oxyCODONE 5 MG capsule Commonly known as: OXY-IR 5 mg, Oral, Every 4 Hours PRN tiZANidine 4 MG tablet Commonly known as: ZANAFLEX 4 mg, Oral, Every 8 Hours PRN tretinoin 0.05 % cream Commonly known as: RETIN-A 1 Application, Topical, Nightly tretinoin 10 MG chemo capsule Commonly known as: VESANOID Oral, 2 Times Daily vitamin D 1.25 MG (24574 UT) capsule capsule Commonly known as: ERGOCALCIFEROL [...] minutes on this discharge activity which included: kakd-fk-[id number] with the patient, reviewing the data in the system, coordination of the care with the nursing staff as well as consultants, documentation, and entering orders. * Shabana Kim, OT Student - 01/28/2025 8:12 AM EDT Images from the original note were not included. Acute Care - Occupational Therapy Discharge [facility] Patient Name: Farrah Judgekarinalli : 1950 Today's Date: 01/28/2025 Admit Date: 01/26/2025 Visit Dx: ICD-10-CM ICD-9-CM 1. 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 Bar Machine Operator Dr Connor Jose ([facility] [place], [place]), advised stringent lifelong avoidance of all [...] Surgeon: Bautista Luis MD; Location: [facility]; Service: Orthopedics TUBAL ABDOMINAL LIGATION 1989 General [...] Mobility Bed Mobility supine-sit (P) -BT Supine-Sit [place] (Bed Mobility) modified independence (P) -BT Assistive Device (Bed Mobility) head of bed elevated (P) -BT Row Name 01/28/25834 Transfers Transfers sit-stand transfer;stand-sit transfer;bed-chair transfer (P) -BT Row Name 01/28/25834 Bed-Chair Transfer Bed-Chair Chilton (Transfers) independent (P) -BT Row Name 01/28/25 Sit-Stand Transfer Sit-Stand [place]ilton (Transfers) independent (P) -BT Row Name 01/28/25 Stand-Sit Transfer Stand-Sit [place]ilton (Transfers) independent (P) -BT Row Name 01/28/25 Functional Mobility Functional Mobility- Ind. Level independent (P) -BT Functional Mobility-Distance (Feet) -- (P) HH distance -BT Row Name 01/28/25834 Activities of Daily Living BADL Assessment/Intervention upper body dressing;lower body dressing;grooming (P) -BT Row Name 01/28/25834 Hygiene Care Oral Care teeth brushed - regular toothbrush (P) -BT Row Name 01/28/25 Upper Body Dressing Assessment/Training Chilton Level (Upper Body Dressing) don;doff;front opening garment;standby assist (P) -BT Position (Upper Body Dressing) edge of bed sitting (P) -BT Row Name 01/28/25834 Lower Body Dressing Assessment/Training Chilton Level (Lower Body Dressing) don;doff;socks;independent (P) figure 4 -BT Position (Lower Body Dressing) edge of bed sitting (P) -BT Row Name 01/28/25 08 Grooming Assessment/Training Chilton Level (Grooming) oral care regimen;wash face, hands;set [...] Student OT Student Goals/Plan Row Name 01/28/25 0805 Dressing Goal 1 (OT) Activity/Device (Dressing Goal 1, OT) upper body dressing;lower body dressing (P) -BT Chilton/Cues Needed (Dressing Goal 1, OT) standby assist (P) -BT Time Frame (Dressing Goal 1, OT) short term goal (STG);5 days (P) -BT Progress/Outcome (Dressing Goal 1, OT) goal met (P) -BT Row Name 01/28/25 0885 Grooming Goal 1 (OT) Activity/Device (Grooming Goal 1, OT) hair care;oral care;wash face, hands (P) -BT [place]ilton (Grooming Goal 1, OT) standby assist (P) -BT Time Frame (Grooming Goal 1, OT) terminal makeup operator goal (LTG);10 days (P) -BT Strategies/Barriers [...] 22 (P) -BT Row Name 01/28/25845 Modified Su[place]e Scale Pre-Stroke Modified Dimitry Scale 6 - Unable to determine (UTD) from the medical record documentation (P) -BT Modified [place]e Scale 0 - No Symptoms at all. (P) -BT Row Name 01/28/25 0846 Functional Assessment Outcome Measure Options AM-PAC 6 Clicks Daily Activity (OT) (P) -BT User Thompson (r) = Recorded By, (t) = Taken By, (c) = Cosigned By Initials Name Provider Type BT Shabana Kim, OT Student OT Student Occupational Therapy Education Title: PT OT CLEARANCE CUTTER Therapies (In Progress) Topic: Occupational Therapy (In [...] Received On 01/28/25 (P) -BT Timed Charges 35298 - OT Self Care/Mgmt Minutes 24 (P) -BT Total Minutes Timed Charges Total Minutes 24 (P) -BT Total Minutes 24 (P) -BT User Thompson (r) = Recorded By, (t) = Taken By, (c) = Cosigned By Initials Name Provider Type BT Shabana Kim OT Student OT Student Therapy Charges for Today Code Description Service Date Service Provider Modifiers Qty [id number] HC OT SELF CARE/MGMT/TRAIN EA 15 MIN [...] sent through Care Everywhere. * Levetiracetam Tablets (Nicaraguan) * Toxic Metabolic Encephalopathy (Nicaraguan) * Managing Your Hypertension (Nicaraguan) documented in this encounter Medications at Time [...] a Day. vitamin D (ERGOCALCIFEROL) 1.25 MG (14713 UT) capsule capsule Take 1 capsule by [...] resulted in removal iof 13 precancerous polyps. 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 [facility] Medicine Services PROGRESS NOTE Patient Name: [...] MD 01/27/2025 2:05 AM EDT Workstation ID: [id number] Results for orders placed during the hospital [...] paroxysmal A-fib recurrentUTIs who was transferred from [facility] on 01/26 to ICU. Per chart review, the patient was found by her shortly after crushing and snorting pain pills. She was obtunded, treated with Narcan but subsequently experienced seizure-like event and was treated with Ativan. At OSH, she had CT head that showed possible subarachnoid hemorrhage versus artifact. There was also concern for meningitis and she underwent LP. At [facility], MRI of brain revealed motion artifact but [...] tract infections (UTIs). She was transferred from [facility] on 01/26/2025. She was found at [...] patient snorts pain pills. History taken from: [facility]//Social History were reviewed and updated appropriately in [...] No driving for 3 months due to [facility]. Okay to telemetry/hospitalist. Electronically signed by: Andrew Barkley MD 01/27/25 17:34 EDT Patient or patient printing sales representative verbalized consent for the use [...] resulted in removal iof 13 precancerous polyps. 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 [...] Value Units Date/Time MRI Brain With Contrast [[id number]] Collected: 01/27/25199 Updated: 01/27/25207 Narrative: MRI BRAIN [...] MD 01/27/2025 2:05 AM EDT Workstation ID: [id number] Assessment: PRES. Solitary seizure Accelerated hypertension Plan: Continue Keppra 500 mg 3 times daily. Outpatient follow-up [facility] in 3 months. No driving or [...] to the ICU as a transfer from [facility] due to concerns for subarachnoid hemorrhage. [...] resulted in removal iof 13 precancerous polyps. Bar Machine Operator Dr Connor Jose (retired, [place], [place]), advised stringent lifelong avoidance of all [...] Surgeon: Bautista Luis MD; Location: [facility]; Service: Orthopedics TUBAL ABDOMINAL LIGATION 1989 Allergies [...] CONSULT TO INFECTIOUS DISEASES Farrah Atkinson 1950 [id number] Date of Consult: 01/26/2025 Date of Admission: [...] resulted in removal iof 13 precancerous polyps. Bar Machine Operator Dr Connor Jose (retired, [place], [place]), advised stringent lifelong avoidance of all [...] ARTHROPLASTY RIGHT; Surgeon: Bautista Luis MD; Location: [facility]; Service: Orthopedics TUBAL ABDOMINAL LIGATION 1989 [...] 2 mg Intravenous Once Blamer, Maru R, DISINTEGRATOR OPERATOR mupirocin (BACTROBAN) 2 % nasal ointment 1 Application 1 Application Each Nare BID Maru Martinez R, DISINTEGRATOR OPERATOR 1 Application at 01/26/25 0246 sodium chloride 0.9 % flush 10 mL 10 mL Intravenous Q12H Tony Martineza R, DISINTEGRATOR OPERATOR 10 mL at 01/26/25 0945 sodium chloride 0.9 % flush 10 mL 10 mL Intravenous PRN Tony Martineza R, DISINTEGRATOR OPERATOR sodium chloride 0.9 % flush 10 mL [...] mL 40 mL Intravenous PRN Maru Martinez, DISINTEGRATOR OPERATOR sodium chloride 0.9 % infusion 40 mL [...] Value Units Date/Time MRI Brain Without Contrast [[id number]] Collected: 01/26/25615 Updated: 01/26/25639 Narrative: MRI BRAIN [...] EDT Workstation ID: [id number] CT Outside Head [[id number]] Resulted: 01/26/25238 Updated: 01/26/25238 Narrative: This procedure was auto-finalized with no dictation required. CT Outside Spine [[id number]] Resulted: 01/26/25238 Updated: 01/26/25238 Narrative: This procedure was auto-finalized with no dictation required. CT Outside Spine [[id number]] Resulted: 01/26/25238 Updated: 01/26/25238 Narrative: This procedure was auto-finalized with no dictation required. CT Outside Spine [[id number]] Resulted: 01/26/25237 Updated: 01/26/25237 Narrative: This procedure was auto-finalized with no dictation required. CT Outside Abd/Pelvis [[id number]] Resulted: 01/26/25237 Updated: 01/26/25237 Narrative: This procedure was auto-finalized with no dictation required. CT Outside Abd/Pelvis [[id number]] Resulted: 01/26/25236 Updated: 01/26/25236 Narrative: This procedure was auto-finalized with no dictation required. CT Outside Chest [[id number]] Resulted: 01/26/25236 Updated: 01/26/25236 Narrative: This procedure was auto-finalized with no dictation required. CT Angiogram Neck [[id number]] Collected: 01/26/25147 Updated: 01/26/25156 Narrative: CT ANGIOGRAM [...] MD 01/26/2025 1:54 AM EDT Workstation ID: [id number] CT Angiogram Head w AI Analysis of LVO [[id number]] Collected: 01/26/25147 Updated: 01/26/25156 Narrative: CT ANGIOGRAM [...] MD 01/26/2025 1:54 AM EDT Workstation ID: [id number] CT Head Without Contrast [[id number]] Collected: 01/26/25144 Updated: 01/26/25148 Narrative: CT HEAD [...] MD 01/26/2025 1:46 AM EDT Workstation ID: [id number] PROBLEM LIST: Toxic metabolic encephalopathy Possible PRES [...] included. Neurology Referring provider: Provider, [place] [address] Reason for Consultation: Altered mental state Chief [...] a Day. vitamin D (ERGOCALCIFEROL) 1.25 MG (64210 UT) capsule capsule Take 1 capsule by [...] resulted in removal iof 13 precancerous polyps. Bar Machine Operator Dr Connor Jose ([facility] [place], [place]), advised stringent lifelong avoidance of all [...] Surgeon: Bautista Luis MD; Location: [facility]; Service: Orthopedics TUBAL ABDOMINAL LIGATION 1989 , [...] awake and alert. She is oriented to [facility] but cannot tell me how old [...] Component Value Units Date/Time POC Glucose Once [[id number]] Collected: 01/26/25 1219 Specimen: Blood Updated: 01/26/25 1222 Glucose 98 mg/dL Comment: Serial Number: [id number]: [id number] Amber Comment 1 Follow unit protocol STAT Lactic Acid, Reflex [[id number]] (Normal) Collected: 01/26/25 1044 Specimen: Blood Updated: 01/26/25 1133 Lactate 1.9 mmol/L Comment: Falsely depressed results may occur on samples drawn from patients receiving N-Acetylcysteine (NAC) or Metamizole. Hemoglobin A1c [[id number]] (Abnormal) Collected: 01/26/25650 Specimen: Blood from Arm, Right Updated: 01/26/25 0856 Hemoglobin A1C 5.67 % Narrative: Hemoglobin A1C Ranges: Increased Risk for Diabetes 5.7% to 6.4% Diabetes >= 6.5% Diabetic Goal < 7.0% Vancomycin, Random [[id number]] (Abnormal) Collected: 01/26/25650 Specimen: Blood from Arm, Right Updated: 01/26/25 0753 Vancomycin Random 42.10 mcg/mL Narrative: Therapeutic Ranges for Vancomycin Vancomycin Random 5.0-40.0 mcg/mL Vancomycin Trough 5.0-20.0 mcg/mL Vancomycin Peak 20.0-40.0 mcg/mL STAT Lactic Acid, Reflex [[id number]] (Abnormal) Collected: 01/26/25 0651 Specimen: Blood from Arm, Right Updated: 01/26/25 0724 Lactate 2.2 mmol/L Comment: Falsely depressed results may occur on samples drawn from patients receiving N-Acetylcysteine (NAC) or Metamizole. POC Glucose Once [[id number]] (Abnormal) Collected: 01/26/25 05 Specimen: Blood Updated: 01/26/25522 Glucose 134 mg/dL Comment: Serial Number: [id number]: [id number] POC Glucose Once [[id number]] (Abnormal) Collected: 01/26/25 0238 Specimen: Blood Updated: 01/26/25 0506 Glucose 150 mg/dL Comment: Serial Number: [id number]: [id number] High Sensitivity Troponin T 1Hr [[id number]] (Abnormal) Collected: 01/26/25 0328 Specimen: Blood Updated: [...] condition. Fentanyl, Urine - Indwelling Urethral Catheter [[id number]] (Normal) Collected: 01/26/25 025 Specimen: Urine from [...] Urine Drug Screen - Indwelling Urethral Catheter [[id number]] (Abnormal) Collected: 01/26/25256 Specimen: Urine from Indwelling [...] Indicated (No Culture) - Indwelling Urethral Catheter [[id number]] (Abnormal) Collected: 01/26/25256 Specimen: Urine from Indwelling Urethral Catheter Updated: 01/26/25324 Color, UA Yellow Appearance, UA Clear pH, UA 5.5 Specific Usk, UA >1.030 Glucose, UA Negative Ketones, UA Negative Bilirubin, UA Negative Blood, UA Moderate (2+) Protein, UA Trace Leuk Esterase, UA Small (1+) Nitrite, UA Negative Urobilinogen, UA 0.2 E.U./dL Urinalysis, Microscopic Only - Indwelling Urethral Catheter [[id number]] (Abnormal) Collected: 01/26/25256 Specimen: Urine from Indwelling Urethral Catheter Updated: 01/26/25324 RBC, UA 6-10 /HPF WBC, UA 11-20 /HPF Bacteria, UA None Seen /HPF Squamous Epithelial Cells, UA 0-2 /HPF Hyaline Casts, UA None Seen /LPF Methodology Automated Microscopy Blood Culture - Blood, Blood, Port [[id number]] Collected: 01/25/25 1400 Specimen: Blood, Port Updated: 01/26/25 0310 Blood Culture - Blood, Arm, Right [[id number]] Collected: 01/25/25 1405 Specimen: Blood from Arm, Right Updated: 01/26/25 0309 aPTT [[id number]] (Normal) Collected: 01/26/25208 Specimen: Blood Updated: 01/26/25255 PTT 26.2 seconds Narrative: PTT = The equivalent PTT values for the therapeutic range of heparin levels at 0.3 to 0.5 U/ml are 60 to 70 seconds. Protime-INR [[id number]] (Normal) Collected: 01/26/25208 Specimen: Blood Updated: 01/26/25255 Protime 13.9 Seconds INR 1.01 CK [[id number]] (Abnormal) Collected: 01/26/25208 Specimen: Blood Updated: 01/26/25249 Creatine Kinase 206 U/L Lipase [[id number]] (Normal) Collected: 01/26/25208 Specimen: Blood Updated: 01/26/25249 Lipase 20 U/L Lipid Panel [[id number]] (Abnormal) Collected: 01/26/25208 Specimen: Blood Updated: 01/26/25249 [...] calculated using the NIH LDL-C calculation. Magnesium [[id number]] (Normal) Collected: 01/26/25208 Specimen: Blood Updated: 01/26/25249 Magnesium 2.1 mg/dL Procalcitonin [[id number]] (Normal) Collected: 01/26/25208 Specimen: Blood Updated: 01/26/25249 [...] Day 4 values are available. Refer to http://www.xwdggc-wwi-grubansxhf.com Change in PCT <=80% A decrease of [...] or septic shock. High Sensitivity Troponin T [[id number]] (Abnormal) Collected: 01/26/25208 Specimen: Blood Updated: 01/26/25249 [...] TSH Rfx On Abnormal To Free T4 [[id number]] (Normal) Collected: 01/26/25208 Specimen: Blood Updated: 01/26/25249 TSH 1.430 uIU/mL Comprehensive Metabolic Panel [[id number]] (Abnormal) Collected: 01/26/25208 Specimen: Blood Updated: 01/26/25249 [...] not include race as a factor Phosphorus [[id number]] (Normal) Collected: 01/26/25208 Specimen: Blood Updated: 01/26/25249 Phosphorus 3.6 mg/dL CBC & Differential [[id number]] (Abnormal) Collected: 01/26/25208 Specimen: Blood Updated: 01/26/25247 Narrative: The following orders were created for panel order CBC & Differential. Procedure Abnormality Status --------- ------ Manual Differential[[id number]] Abnormal Final result CBC Auto Differential[[id number]] Abnormal Final result Please view results for these tests on the individual orders. Manual Differential [[id number]] (Abnormal) Collected: 01/26/25208 Specimen: Blood Updated: 01/26/25247 [...] Normal Platelet Morphology Normal CBC Auto Differential [[id number]] (Abnormal) Collected: 01/26/25208 Specimen: Blood Updated: 01/26/25247 WBC 18.88 10*3/mm3 RBC 3.98 10*6/mm3 Hemoglobin 11.6 g/dL Hematocrit 35.6 % MCV 89.4 fL MCH 29.1 pg MCHC 32.6 g/dL RDW 13.6 % RDW-SD 45.1 fl MPV 9.4 fL Platelets 411 10*3/mm3 Lactic Acid, Plasma [[id number]] (Abnormal) Collected: 01/26/25208 Specimen: Blood Updated: 01/26/25244 Lactate 2.7 mmol/L Comment: Falsely depressed results may occur on samples drawn from patients receiving N-Acetylcysteine (NAC) or Metamizole. LSAC Slide Creation [[id number]] Collected: 01/26/25208 Specimen: Blood Updated: 01/26/25230 Calcium, Ionized [[id number]] (Normal) Collected: 01/26/25208 Specimen: Blood Updated: 01/26/25221 Ionized Calcium 1.15 mmol/L Rads: Imaging Results (Last 48 Hours) Procedure Component Value Units Date/Time MRI Brain Without Contrast [[id number]] Collected: 01/26/25615 Updated: 01/26/25639 Narrative: MRI BRAIN [...] EDT Workstation ID: [id number] CT Outside Head [[id number]] Resulted: 01/26/25238 Updated: 01/26/25238 Narrative: This procedure was auto-finalized with no dictation required. CT Outside Spine [[id number]] Resulted: 01/26/25238 Updated: 01/26/25238 Narrative: This procedure was auto-finalized with no dictation required. CT Outside Spine [[id number]] Resulted: 01/26/25238 Updated: 01/26/25238 Narrative: This procedure was auto-finalized with no dictation required. CT Outside Spine [[id number]] Resulted: 01/26/25237 Updated: 01/26/25237 Narrative: This procedure was auto-finalized with no dictation required. CT Outside Abd/Pelvis [[id number]] Resulted: 01/26/25237 Updated: 01/26/25237 Narrative: This procedure was auto-finalized with no dictation required. CT Outside Abd/Pelvis [[id number]] Resulted: 01/26/25236 Updated: 01/26/25236 Narrative: This procedure was auto-finalized with no dictation required. CT Outside Chest [[id number]] Resulted: 01/26/25236 Updated: 01/26/25236 Narrative: This procedure was auto-finalized with no dictation required. CT Angiogram Neck [[id number]] Collected: 01/26/25147 Updated: 01/26/25156 Narrative: CT ANGIOGRAM [...] MD 01/26/2025 1:54 AM EDT Workstation ID: [id number] CT Angiogram Head w AI Analysis of LVO [[id number]] Collected: 01/26/25147 Updated: 01/26/25156 Narrative: CT ANGIOGRAM [...] MD 01/26/2025 1:54 AM EDT Workstation ID: [id number] CT Head Without Contrast [[id number]] Collected: 01/26/25144 Updated: 01/26/25148 Narrative: CT HEAD [...] MD 01/26/2025 1:46 AM EDT Workstation ID: [id number] Assessment: Encephalopathy with possible seizure, improving. Episode [...] 01/26/2025 9:31 AM EDT Chart review for primary special educator consult. At the time of this review patient A1c is 5.67 , they have no noted history of diabetes and no homemedications noted for treatment of diabetes. At this time we do not feel the patient would benefit from diabetes education. Thank you for this consult, should patient needs change please re consult us. * Rayshawn Herclues PA-C - 01/26/2025 1:55 AM EDT Stroke Consult Note Patient Name: Farrah Atkinson Age: 74 y.o. Sex: female : 1950 Primary Care Physician: Timothy Granda DO Referring Physician: [facility] ICU Provider Handedness: Unknown Race: Chief Complaint/Reason for Consultation: Altered mental status HPI Last Known Normal Date/Time: Unknown This patient is a 74-year-old female with past medical history significant for hypertension, hyperlipidemia, remote hep C, anxiety/depression, chronic pain, and reported polysubstance use who was admitted to [facility] with altered mental status. Spoke to [facility] Provider who was able to provide only limited history. ED Provider reportedly had suspicion for opiate/benzodiazepine use and gave reversal medications . Following medication administration, patient reportedly had a seizure and was loaded with 2 g Keppra and admitted to [facility]. CT imaging with and without contrast was obtained. Noncontrast CTh reportedly showed suspicion for trace SAH. LP was performed at OSH with results detailed below. Transfer to [facility] for higher level of care was requested in setting of finding of possible SAH. Patient was seen and examined immediately on arrival to [facility]. Patient is not alert but arouses easily [...] CTA H/N were obtained on arrival to [facility]. Imaging was significantly motion degraded but showed [...] resulted in removal iof 13 precancerous polyps. Bar Machine Operator Dr Connor Jose (retired, [place], [place]), advised stringent lifelong avoidance of all [...] ARTHROPLASTY RIGHT; Surgeon: Bautista Luis MD; Location: [facility]; Service: Orthopedics TUBAL ABDOMINAL LIGATION 1989 [...] MD 01/26/2025 1:54 AM EDT Workstation ID: [id number] CT Angiogram Head w AI Analysis of LVO Result Date: 01/26/2025 Impression: Significantly limited exam due to motion artifact. The neck vasculature is not adequately evaluated. The intracranial vasculature is normal. There is no evidence of large vessel occlusion. Electronically Signed: Jesus Peterson MD 01/26/2025 1:54 AM EDT Workstation ID: [id number] CT Head Without Contrast Result Date: 01/26/2025 Impression: No acute intracranial abnormality. Electronically Signed: Jesus Peterson MD 01/26/2025 1:46 AM EDT Workstation ID: [id number] Assessment and Plan This patient is a [...] results as above. Patient was transferred to [facility] for higher level of care. On arrival to [facility], NIH score was 13 for altered mental status, no focal neurologic deficits appreciated. Stat CT imaging was obtained on arrival to [facility] which were motion degraded but showed no evidenceof SAH or other acute abnormality. LP at OSH 01/25/2025: WBC 2, RBC 1, glucose 105, protein 100, Gram stain and culture pending Antiplatelet ELECTRONIC PARTS SALESPERSON: None Anticoagulant ELECTRONIC PARTS SALESPERSON: None Acute encephalopathy Possible SAH reported on [...] stat CTh for any acute neurological change -PT/OT/CLEARANCE CUTTER as appropriate Disposition: Patient is admitted to the ICU Case discussed with the patient, bedside RN, and [facility] ICU Providers. Thank you for the consult. Stroke neurology will continue to follow. Rayshawn Hercules PA-C [facility] Stroke Neurology Cosigned by Rayshawn Camp MD at 01/26/2025 10:39 AM EDT Associated attestation - Rayshawn Camp MD - 01/26/2025 10:39 AM EDT There is no evidence of SAH on CTH performed at [facility]. MRI did not reveal evidence of acute infarct, however imaging was more concerning PRES vs encephalitis vs cerebritis vs other. Will defer further workup and recommendations to the General Neurology team. Rayshawn Camp MD Vascular Neurologist [facility] documented in this encounter Nursing Notes [...] weight shift assistance provided Head of Bed ([facility]) Positioning: [facility] elevated Pressure Reduction Devices: positioning supports utilized pressure-redistributing mattress utilized specialty bed utilized Skin Protection: incontinence pads utilized silicone border foam - heel silicone border foam - sacrum/coccyx Taken 01/29/2025 0000 by Mary Wu RN Activity Management: activity encouraged Pressure Reduction Techniques: frequent weight shift encouraged weight shift assistance provided Head of Bed ([facility]) Positioning: [facility] elevated Pressure Reduction Devices: positioning supports utilized pressure-redistributing mattress utilized specialty bed utilized Skin Protection: incontinence pads utilized silicone border foam - heel silicone border foam - sacrum/coccyx Taken 01/28/2025 2200 by Mary Wu RN Activity Management: activity encouraged Pressure Reduction Techniques: frequent weight shift encouraged weight shift assistance provided Head of Bed ([facility]) Positioning: [facility] elevated Pressure Reduction Devices: positioning supports utilized pressure-redistributing mattress utilized specialty bed utilized Skin Protection: incontinence pads utilized silicone border foam - heel silicone border foam - sacrum/coccyx Taken 01/28/2025 2000 by Mary Wu RN Activity Management: activity encouraged Pressure Reduction Techniques: frequent weight shift encouraged weight shift assistance provided Head of Bed ([facility]) Positioning: [facility] elevated Pressure Reduction Devices: positioning supports utilized pressure-redistributing mattress utilized specialty bed utilized Skin Protection: incontinence pads utilized silicone border foam - heel silicone border foam - sacrum/coccyx Problem: Restraint, Nonviolent Goal: Absence of Harm or Injury Outcome: Progressing Intervention: Implement Least Restrictive Safety Strategies Recent Flowsheet Documentation Taken 01/29/2025 0400 by Mary Wu RN Electrical Mechanical Technician Protection: tubing secured Taken 01/29/2025 0200 by Mary Wu RN Electrical Mechanical Technician Protection: tubing secured Taken 01/29/2025 0000 by Mary Wu RN Electrical Mechanical Technician Protection: tubing secured Taken 01/28/2025 2200 by Mary Wu RN Electrical Mechanical Technician Protection: tubing secured Taken 01/28/20251999 by Mary Wu RN Electrical Mechanical Technician Protection: tubing secured Diversional Activities: television Intervention: [...] Goal Outcome Evaluation: * Madiha Mccauley, MS [facility]-CLEARANCE CUTTER - 01/28/2025 3:51 PM EDT Goal Outcome Evaluation: Plan of Care Reviewed With: patient, spouse Progress: improving Anticipated Discharge Disposition (CLEARANCE CUTTER): home with OP services (if deficits persist @ time of d/c) Treatment Assessment (CLEARANCE CUTTER): improved, mild, cognitive-linguistic disorder (01/28/25 1500) Treatment Assessment Comments (CLEARANCE CUTTER): Mild deficits are acute/atypical for pt per her report. (01/28/25 1500) Plan for Continued Treatment (CLEARANCE CUTTER): continue treatment per plan of care, goals [...] pads utilized Taken 01/28/2025 0400 by Raeann Arredodno RN Activity Management: activity minimized Pressure Reduction [...] Documentation Taken 01/27/20252257 by Raeann Arredondo RN Electrical Mechanical Technician Protection: IV pole/bag removed from visual field [...] safety round/check completed Taken 01/28/2025 0400 by Reaann Arredondo RN Safety Promotion/Fall Prevention: activity supervised [...] Evaluation: Progress: improving * Nic Martin MS [facility]-CLEARANCE CUTTER - 01/26/2025 1:04 PM EDT Goal Outcome Evaluation: Plan of Care Reviewed With: patient Progress: improving Anticipated Discharge Disposition (CLEARANCE CUTTER): inpatient rehabilitation facility, other (see comments) (no further dysphagia intervention indicated, CLEARANCE CUTTER will f/u w cog) CLEARANCE CUTTER Diagnosis: moderate-severe, cognitive-linguistic disorder (01/26/25 1030) CLEARANCE CUTTER Diagnosis Comments: deficits are low level and are more c/w cognitive- linguistic deficits than language. (01/26/25 103) CLEARANCE CUTTER Swallowing Diagnosis: swallow WFL/no suspected pharyngeal impairment [...] pt progress closely. Anticipated Discharge Disposition (OT): intermediate facility * Dinora Huston, PT - 01/26/2025 [...] monitor pt's progress. Anticipated Discharge Disposition (PT): intermediate facility * West Epps RN - 01/26/2025 [...] CWOCN Wound, Ostomy and Continence (WOC) Department [facility] documented in this encounter Miscellaneous Notes * Case Management/Social Work - Merari Skaggs MSW - 01/29/2025 1:42 PM EDT Case Management Discharge Note Final Note: BOILER OR ENGINE OPERATOR spoke with pt at bedside. Speech therapy [...] Therapy Treatment Note - Madiha Mccauley MS CCC-CLEARANCE CUTTER - 01/28/2025 3:52 PM EDT Images from the original note were not included. Acute Care - Speech Language Pathology Treatment Note [facility] Patient Name: Farrah Atkinson : 1950 Today's Date: 01/28/2025 Admit Date: 01/26/2025 Visit Dx: ICD-10-CM ICD-9-CM 1. Cognitive communication deficit R41.841 799.52 2. 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 Anticipated Discharge Disposition (CLEARANCE CUTTER): home with OP services (if deficits persist @ time of d/c) (01/28/25 1500) Therapy Frequency (CLEARANCE CUTTER SLC): 5 days per week (01/28/25 1500) Predicted Duration Therapy Intervention (Days): 2 weeks (01/28/25 1500) Daily Summary of Progress (CLEARANCE CUTTER): progress toward functional goals as expected (01/28/25 1500) Treatment Assessment (CLEARANCE CUTTER): improved, mild, cognitive-linguistic disorder (01/28/25 1500) Treatment Assessment Comments (CLEARANCE CUTTER): Mild deficits are acute/atypical for pt per her report. (01/28/25 1500) Plan for Continued Treatment (CLEARANCE CUTTER): continue treatment per plan of care, goals adjusted to reflect functional improvements demonstrated (01/28/25 1500) Progress: improving (01/28/25 1551) CLEARANCE CUTTER EVALUATION (Last 72 Hours) CLEARANCE CUTTER SLC Evaluation Row Name 01/28/25 1500 01/26/25 [...] Function -- WFL -RS Cognitive Assessment Intervention- CLEARANCE CUTTER Cognitive Function (Cognition) mild impairment -AC severe [...] Comment -- oriented to year only -RS CLEARANCE CUTTER Evaluation Clinical Impressions CLEARANCE CUTTER Diagnosis -- moderate-severe;cognitive-linguistic disorder -RS CLEARANCE CUTTER Diagnosis Comments -- deficits are low level and are more c/w cognitive- linguistic deficits than language. -RS Rehab Potential/Prognosis -- good -RS SLC Criteria for Skilled Therapy Interventions Met -- yes -RS CLEARANCE CUTTER Treatment Clinical Impressions Treatment Assessment (CLEARANCE CUTTER) improved;mild;cognitive-linguistic disorder -AC -- Treatment Assessment Comments (CLEARANCE CUTTER) Mild deficits are acute/atypical for pt per her report. -AC -- Daily Summary of Progress (CLEARANCE CUTTER) progress toward functional goals as expected -AC -- Plan for Continued Treatment (CLEARANCE CUTTER) continue treatment per plan of care;goals adjusted to reflect functional improvements demonstrated -AC -- Care Plan Review evaluation/treatment results reviewed;care plan/treatment goals reviewed;risks/benefits reviewed;current/potential barriers reviewed;patient/other agree to care plan -AC -- Care Plan Review, Other Participant(s) spouse -AC -- Recommendations Therapy Frequency (CLEARANCE CUTTER SLC) 5 days per week -AC 5 days per week -RS Predicted Duration Therapy Intervention (Days) 2 weeks -AC 2 weeks -RS Anticipated Discharge Disposition (CLEARANCE CUTTER) home with OP services if deficits persist @ time of d/c -ACinpatient rehabilitation facility;other (see comments) no further dysphagia intervention indicated,CLEARANCE CUTTER will f/u w cog -RS User Thompson (r) = Recorded By, (t) = Taken By, (c) = Cosigned By Initials Name Effective Dates AC Madiha Mccauley MS CCC-CLEARANCE CUTTER 05/05/22 - RS Nic Martin MS CCC-CLEARANCE CUTTER 12/14/22 - EDUCATION The patient has been educated in the following areas: Cognitive Impairment. CLEARANCE CUTTER GOALS Row Name 01/28/25 1500 01/26/25 1030 Patient will demonstrate functional cognitive-linguistic skills for return to discharge environment [place] Independently -AC with moderate cues -RS Time frame 2 weeks -AC 2 weeks -RS Progress/Outcomes goal revised this date -AC new goal -RS CLEARANCE CUTTER Diagnostic Treatment Patient will participate in further assessment in the following areas reading comprehension;graphicexpression -AC reading comprehension;graphic expression -RS Time Frame (Diagnostic) 1 week -AC 1 week -RS Progress/Outcomes (Additional Goal 1, CLEARANCE CUTTER) goal met -AC new goal -RS Comment (Diagnostic) See assessment. -AC -- Comprehend Questions Goal 1 (CLEARANCE CUTTER) Improve Ability to Comprehend Questions Goal 1 (CLEARANCE CUTTER) simple yes/no questions;80%;with moderate cues(50-74%) -AC simple yes/no questions;80%;with moderate cues (50-74%) -RS Time Frame (Comprehend Questions Goal 1, CLEARANCE CUTTER) 1 week -AC 1 week -RS Progress (Ability to Comprehend Questions Goal 1, CLEARANCE CUTTER) 100%;independently (over 90% accuracy) -AC -- Progress/Outcomes (Comprehend Questions Goal 1, CLEARANCE CUTTER) goal met -AC new goal -RS Follow Directions Goal 2 (CLEARANCE CUTTER) Improve Ability to Follow Directions Goal 1 (CLEARANCE CUTTER) 1 step direction without objects;80%;with moderate cues (50-74%) -AC 1 step direction without objects;80%;with moderate cues (50-74%) -RS Time Frame (Follow Directions Goal 1, CLEARANCE CUTTER) 1 week -AC 1 week -RS Progress (Ability to Follow Directions Goal 1, CLEARANCE CUTTER) 100%;independently (over 90% accuracy) -AC -- Progress/Outcomes (Follow Directions Goal 1, CLEARANCE CUTTER) goal met -AC new goal -RS Orientation Goal 1 (CLEARANCE CUTTER) Improve Orientation Through Goal 1 (CLEARANCE CUTTER) demonstrating orientation to day;demonstrating orientationto month;demonstrating orientation to year;80%;with moderate cues (50-74%) -AC demonstrating orientation to day;demonstrating orientation to month;demonstrating orientation to year;80%;with moderate cues (50-74%) -RS Time Frame (Orientation Goal 1, CLEARANCE CUTTER) 1 week -AC 1 week -RS Progress (Orientation Goal 1, CLEARANCE CUTTER) 100%;independently (over 90% accuracy) -AC -- Progress/Outcomes (Orientation Goal 1, CLEARANCE CUTTER) goal met -AC new goal -RS Memory Skills Goal 1 (CLEARANCE CUTTER) Improve Memory Skills Through Goal 1 (CLEARANCE CUTTER) recalling related word lists immediately;listen to a paragraph and answer questions;use memory strategies;90%;independently (over 90% accuracy) -AC -- Time Frame (Memory Skills Goal 1, CLEARANCE CUTTER) 1 week -AC -- Progress/Outcomes (Memory Skills Goal 1, CLEARANCE CUTTER) new goal -AC -- Organizational Skills Goal 1 (CLEARANCE CUTTER) Improve Thought Organization Through Goal 1 (CLEARANCE CUTTER) completing mental manipulation task;90%;with minimal cues (75-90%) -AC -- Time Frame (Thought Organization Skills Goal 1, CLEARANCE CUTTER) 1 week -AC -- Progress/Outcomes (Thought Organization Skills Goal 1, CLEARANCE CUTTER) new goal -AC -- Executive Functional Skills Goal 1 (CLEARANCE CUTTER) Improve Executive Function Skills Goal 1 (CLEARANCE CUTTER) identify anticipated needs;organization/planning activity;80%;with minimal cues (75-90%) -AC -- Time Frame (Executive Function Skills Goal 1, CLEARANCE CUTTER) 1 week -AC -- Progress/Outcomes (Executive Function Skills Goal 1, CLEARANCE CUTTER) new goal -AC -- User Thompson (r) = Recorded By, (t) = Taken By, (c) = Cosigned By Initials Name Provider Type AC Madiha Mccauley MS CCC-CLEARANCE CUTTER Speech and Language Pathologist Nic Conti MS CCC-CLEARANCE CUTTER Speech and Language Pathologist Time Calculation: Time Calculation- CLEARANCE CUTTER Row Name 01/28/25 1551 Time Calculation- CLEARANCE CUTTER CLEARANCE CUTTER Start Time 1500 -AC CLEARANCE CUTTER Received On 01/28/25 - Untimed Charges 17374-QA Treatment/ST Modification Prosth Oct 54 -AC Total Minutes Untimed Charges Total Minutes 54 -AC Total Minutes 54 -AC User Thompson (r) = Recorded By, (t) = Taken By, (c) = Cosigned By Initials Name Provider Type AC Madiha Mccauley MS CCC-CLEARANCE CUTTER Speech and Language Pathologist Therapy Charges for Today Code Description Service Date Service Provider Modifiers Qty [id number] ST TREATMENT SPEECH 4 01/28/2025 Madiha Mccauley MS CCC-CLEARANCE CUTTER GN 1 Madiha Mccauley MS CCC-DOYLE 01/28/2025 [...] longer recommending SNF and jsut rec home. BOILER OR ENGINE OPERATOR remains available for any discharge needs thatarise. Discharge Codes No documentation. 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 CLEARANCE CUTTER Swallowing Diagnosis: swallow WFL/no suspected pharyngeal impairment (01/26/25 103) CLEARANCE CUTTER Diet Recommendation: regular textures, thin liquids (01/26/25 1030) CLEARANCE CUTTER Rec. for Method of Medication Administration: as tolerated (01/26/25 1030) Swallow Criteria for Skilled Therapeutic Interventions Met: no problems identified which require skilled intervention (01/26/25 103) Anticipated Discharge Disposition (CLEARANCE CUTTER): inpatient rehabilitation facility, other (see comments) (no further dysphagia intervention indicated, CLEARANCE CUTTER will f/u w cog) (01/26/25 1030) Predicted Duration Therapy Intervention (Days): 2 weeks (01/26/25 1030) Oral Care Recommendations: Oral Care BID/PRN, Toothbrush (01/26/25 1030) Progress: improving SWALLOW EVALUATION (Last 72 Hours) CLEARANCE CUTTER Adult Swallow Evaluation Row Name 01/26/25 1030 [...] Function-Swallowing other (see comments) FEES 08/2022 at [facility] 2/2 cord dysfunction. Soft/ntl/no mixed/single drinks recommended [...] room air -RS Eating/Swallowing Skills fed by CLEARANCE CUTTER;other (see comments) pt in bilateral wrist restraints -RS Positioning During Eating upright in bed -RS Utensils Used spoon;cup;straw -RS Consistencies Trialed regular textures;mixed consistency;ice chips;thin liquids;pureed -RS Respiratory Respiratory Status WFL -RS Clinical Swallow Eval Oral Prep Phase WFL -RS Oral Transit WFL -RS Oral Residue WFL -RS Pharyngeal Phase no overt signs/symptoms of pharyngeal impairment -RS Esophageal Phase unremarkable -RS CLEARANCE CUTTER Evaluation Clinical Impression CLEARANCE CUTTER Swallowing Diagnosis swallow WFL/no suspected pharyngeal impairment -RS Swallow Criteria for Skilled Therapeutic Interventions Met no problems identified which require skilled intervention -RS Recommendations CLEARANCE CUTTER Diet Recommendation regular textures;thin liquids -RS Oral Care Recommendations Oral Care BID/PRN;Toothbrush -RS CLEARANCE CUTTER Rec. for Method of Medication Administration as tolerated -RS User Thompson (r) = Recorded By, (t) = Taken By, (c) = Cosigned By Initials Name Effective Dates Nic Conti MS [facility]-CLEARANCE CUTTER 12/14/22 - EDUCATION The patient has been educated in the following areas: Dysphagia (Swallowing Impairment). CLEARANCE CUTTER GOALS Row Name 01/26/25 1030 Patient will demonstrate functional cognitive-linguistic skills for return to discharge environment [place] with moderate cues -RS Time frame 2 weeks -RS Progress/Outcomes new goal -RS CLEARANCE CUTTER Diagnostic Treatment Patient will participate in further assessment in the following areas reading comprehension;graphicexpression -RS Time Frame (Diagnostic) 1 week -RS Progress/Outcomes (Additional Goal 1, CLEARANCE CUTTER) new goal -RS Comprehend Questions Goal 1 (CLEARANCE CUTTER) Improve Ability to Comprehend Questions Goal 1 (CLEARANCE CUTTER) simple yes/no questions;80%;with moderate cues(50-74%) -RS Time Frame (Comprehend Questions Goal 1, CLEARANCE CUTTER) 1 week -RS Progress/Outcomes (Comprehend Questions Goal 1, CLEARANCE CUTTER) new goal -RS Follow Directions Goal 2 (CLEARANCE CUTTER) Improve Ability to Follow Directions Goal 1 (CLEARANCE CUTTER) 1 step direction without objects;80%;with moderate cues (50-74%) -RS Time Frame (Follow Directions Goal 1, CLEARANCE CUTTER) 1 week -RS Progress/Outcomes (Follow Directions Goal 1, CLEARANCE CUTTER) new goal -RS Orientation Goal 1 (CLEARANCE CUTTER) Improve Orientation Through Goal 1 (CLEARANCE CUTTER) demonstrating orientation to day;demonstrating orientationto month;demonstrating orientation to year;80%;with moderate cues (50-74%) -RS Time Frame (Orientation Goal 1, CLEARANCE CUTTER) 1 week -RS Progress/Outcomes (Orientation Goal 1, CLEARANCE CUTTER) new goal -RS User Thompson (r) = Recorded By, (t) = Taken By, (c) = Cosigned By Initials Name Provider Type Nic Conti MS [facility]-CLEARANCE CUTTER Speech and Language Pathologist Time Calculation: Time Calculation- CLEARANCE CUTTER Row Name 01/26/25 1305 Time Calculation- CLEARANCE CUTTER CLEARANCE CUTTER Start Time 1030 -RS CLEARANCE CUTTER Received On 01/26/25 -RS Untimed Charges [id number]-[id number] Eval Speech and Production w/ Language Minutes 25 -RS 75731-TL Eval Oral Pharyng Swallow Minutes 40 -RS Total Minutes Untimed Charges Total Minutes 65 -RS Total Minutes 65 -RS User Thompson (r) = Recorded By, (t) = Taken By, (c) = Cosigned By Initials Name Provider Type RS Nic MartinMS CCC-CLEARANCE CUTTER Speech and Language Pathologist Therapy Charges for Today Code Description Service Date Service Provider Modifiers Qty [id number] HC ST EVAL ORAL PHARYNG SWALLOW 3 01/26/2025 Nic MartinMS CCC-CLEARANCE CUTTER GN [id number] EVAL SPEECH AND PROD W LANG 2 01/26/2025 Mario MS RENUKA Lucero- CLEARANCE CUTTER GN 1 Nic Martin MS CCC-CLEARANCE CUTTER 01/26/2025 and [facility] - Speech Language Pathology Initial Evaluation [facility] Cognitive-Communication Evaluation Patient Name: Farrah Atkinson : 1950 Today's Date: 01/26/2025 Admit Date: 01/26/2025 Visit Dx: ICD-10-CM ICD-9-CM 1. 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 CLEARANCE CUTTER Diagnosis: moderate-severe, cognitive-linguistic disorder (01/26/25 103) CLEARANCE CUTTER Diagnosis Comments: deficits are low level and are more c/w cognitive- linguistic deficits than language. (01/26/25 103) Swallow Criteria for Skilled Therapeutic Interventions Met: no problems identified which require skilled intervention (01/26/25 103) SLC Criteria for Skilled Therapy Interventions Met: yes (01/26/25 103) Anticipated Discharge Disposition (CLEARANCE CUTTER): inpatient rehabilitation facility, other (see comments) (no further dysphagia intervention indicated, CLEARANCE CUTTER will f/u w cog) (01/26/25 103) Therapy Frequency (CLEARANCE CUTTER SLC): 5 days per week (01/26/25 103) Predicted Duration Therapy Intervention (Days): 2 weeks (01/26/25 103) Oral Care Recommendations: Oral Care BID/PRN, Toothbrush (01/26/25 1030) Progress: improving (01/26/25 1304) CLEARANCE CUTTER EVALUATION (Last 72 Hours) CLEARANCE CUTTER SLC Evaluation Row Name 01/26/251029 Comprehension Assessment/Intervention [...] Speech Function WFL -RS Cognitive Assessment Intervention- CLEARANCE CUTTER Cognitive Function (Cognition) severe impairment -RS Orientation Status (Cognition) person;moderate impairment;severe impairment -RS Cognition, Comment oriented to year only -RS CLEARANCE CUTTER Evaluation Clinical Impressions CLEARANCE CUTTER Diagnosis moderate-severe;cognitive-linguistic disorder -RS CLEARANCE CUTTER Diagnosis Comments deficits are low level and are more c/w cognitive- linguistic deficits than language. -RS Rehab Potential/Prognosis good -RS SLC Criteria for Skilled Therapy Interventions Met yes -RS Recommendations Therapy Frequency (CLEARANCE CUTTER SLC) 5 days per week -RS Predicted Duration Therapy Intervention (Days) 2 weeks -RS Anticipated Discharge Disposition (CLEARANCE CUTTER) inpatient rehabilitation facility;other (see comments) no further dysphagia intervention indicated, CLEARANCE CUTTER will f/u w cog -RS User Thompson (r) = Recorded By, (t) = Taken By, (c) = Cosigned By Initials Name Effective Dates RS Nic Martin, [facility]-CLEARANCE CUTTER 12/14/22 - EDUCATION The patient has been educated in the following areas: Cognitive Impairment. CLEARANCE CUTTER GOALS Row Name 01/26/25 1030 Patient will demonstrate functional cognitive-linguistic skills for return to discharge environment [place] with moderate cues -RS Time frame 2 weeks -RS Progress/Outcomes new goal -RS CLEARANCE CUTTER Diagnostic Treatment Patient will participate in further assessment in the following areas reading comprehension;graphicexpression -RS Time Frame (Diagnostic) 1 week -RS Progress/Outcomes (Additional Goal 1, CLEARANCE CUTTER) new goal -RS Comprehend Questions Goal 1 (CLEARANCE CUTTER) Improve Ability to Comprehend Questions Goal 1 (CLEARANCE CUTTER) simple yes/no questions;80%;with moderate cues(50-74%) -RS Time Frame (Comprehend Questions Goal 1, CLEARANCE CUTTER) 1 week -RS Progress/Outcomes (Comprehend Questions Goal 1, CLEARANCE CUTTER) new goal -RS Follow Directions Goal 2 (CLEARANCE CUTTER) Improve Ability to Follow Directions Goal 1 (CLEARANCE CUTTER) 1 step direction without objects;80%;with moderate cues (50-74%) -RS Time Frame (Follow Directions Goal 1, CLEARANCE CUTTER) 1 week -RS Progress/Outcomes (Follow Directions Goal 1, CLEARANCE CUTTER) new goal -RS Orientation Goal 1 (CLEARANCE CUTTER) Improve Orientation Through Goal 1 (CLEARANCE CUTTER) demonstrating orientation to day;demonstrating orientationto month;demonstrating orientation to year;80%;with moderate cues (50-74%) -RS Time Frame (Orientation Goal 1, CLEARANCE CUTTER) 1 week -RS Progress/Outcomes (Orientation Goal 1, CLEARANCE CUTTER) new goal -RS User Thompson (r) = Recorded By, (t) = Taken By, (c) = Cosigned By Initials Name Provider Type Nic Conti MS CCC-CLEARANCE CUTTER Speech and Language Pathologist Time Calculation: Time Calculation- CLEARANCE CUTTER Row Name 01/26/25 1305 Time Calculation- CLEARANCE CUTTER CLEARANCE CUTTER Start Time 1030 -RS CLEARANCE CUTTER Received On 01/26/25 -RS Untimed Charges 37157-GM Eval Speech and Production w/ Language Minutes 25 -RS 66674-NO Eval Oral Pharyng Swallow Minutes 40 -RS Total Minutes Untimed Charges Total Minutes 65 -RS Total Minutes 65 -RS User Thompson (r) = Recorded By, (t) = Taken By, (c) = Cosigned By Initials Name Provider Type Nic Conti MS CCC-CLEARANCE CUTTER Speech and Language Pathologist Therapy Charges for Today Code Description Service Date Service Provider Modifiers Qty [id number] HC ST EVAL ORAL PHARYNG SWALLOW 3 01/26/2025 Nic Martin MS CCC-SLP GN [id number] EVAL SPEECH AND PROD W LANG 2 01/26/2025 Nic Martin MS CCC- SLP GN 1 MS CLAUDE Gavin 01/26/2025 * Case Management/Social Work - Shea Bonds RN - 01/26/2025 12:36 PM EDT Discharge Planning Assessment [facility] Patient Name: Farrah Atkinson Today's Date: 01/26/2025 Admit Date: 01/26/2025 Plan: Goal is home Discharge Needs Assessment Row Name 01/26/25 1231 Living Environment People in Home spouse Name(s) of People in Home Rosalio Herman Current Living Arrangements home Potentially Unsafe Housing Conditions unable to assess In the past 12 months has the electric, gas, oil, or water [employer] threatened to shut off services in your [...] family Patient/Family Anticipated Services at Transition manager casedirect marketing manager Anticipated family or friend will provide [...] initiate discharge planning. Confirmed their residence in [facility]; PCP is Connor Gomez; primary insurance is Medicare and secondary is Zi (spouse to bring card to registration). Patient reported to have prescription drug coverage and uses [facility] in [place]. Patient reported to be independent with ADLs [...] Reason for Consult discharge planning Preferred Language Nicaraguan Contact Information Permission Granted to Share Info With manager casepromotions manager Status Row Name 01/26/25 1231 Functional [...] Bonds RN * Therapy Evaluation - Shelly Saleem, MALICK - 01/26/2025 11:44 AM EDT Images from the original note were not included. Patient Name: Farrah Atkinson : 1950 Today's Date: 01/26/2025 Admit Date: 01/26/2025 Visit Dx: ICD-10-CM ICD-9-CM 1. 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 Pt impulsively moving toward EOB prior to line management being completed. - Row Name 01/26/251315 Transfers Transfers sit-stand transfer;stand-sit transfer - Row Name 01/26/251315 Sit-Stand Transfer Sit-Stand [place] (Transfers) minimum assist (75% patient effort);2 person assist;verbal cues -KF Assistive Device (Sit-Stand Transfers) walker, front-wheeled - Comment, (Sit-Stand Transfer) x1 from EOB -KF Row Name 01/26/251315 Stand-Sit Transfer Stand-Sit [place] (Transfers) minimum assist (75% patient effort);2 person [...] Row Name 01/26/251315 Upper Body Dressing Assessment/Training [place] Level (Upper Body Dressing) don;doff;front opening garment;moderate assist (50% patient effort) -KF Position (Upper Body Dressing) edge of bed sitting;unsupported sitting - Row Name 01/26/251315 Lower Body Dressing Assessment/Training [place] Level (Lower Body Dressing) don;socks;dependent (less than 25% patient effort) -KF Position (Lower Body Dressing) edge of bed sitting - Row Name 01/26/251315 Self-Feeding Assessment/Training [place] Level (Feeding) liquids to mouth;maximum assist (25% [...] (OT) Activity/Assistive Device (Transfer Goal 1, OT) hmw-ay-jgdeu/ztpde-mw-jxw;commode -KF [place] Level/Cues Needed (Transfer Goal 1, OT) standby assist -KF Time Frame (Transfer Goal 1, OT) assisted goal (LTG);10 days -KF Progress/Outcome (Transfer Goal 1, OT) new goal -KF Row Name 01/26/25 1321 Dressing Goal 1 (OT) Activity/Device (Dressing Goal 1, OT) upper body dressing;lower body dressing -KF [place]/Cues Needed (Dressing Goal 1, OT) standby assist -KF Time Frame (Dressing Goal 1, OT) short term goal (STG);5 days -KF Strategies/Barriers (Dressing Goal 1, OT) ADL AE PRN -KF Progress/Outcome (Dressing Goal 1, OT) new goal -KF Row Name 01/26/25 1321 Grooming Goal 1 (OT) Activity/Device (Grooming Goal 1, OT) hair care;oral care;wash face, hands -KF [place] (Grooming Goal 1, OT) standby assist -KF Time Frame (Grooming Goal 1, OT) terminal makeup operator goal (LTG);10 days -KF Strategies/Barriers (Grooming Goal [...] Occupational Therapist Clinical Impression Row Name 01/26/25 1312 Pain Assessment Pretreatment Pain Rating 10/10 -KF [...] pt progress closely. -KF Row Name 01/26/25 1312 Therapy Assessment/Plan (OT) Patient/Family Therapy Goal Statement (OT) Return home -KF Rehab Potential (OT) good -KF Criteria for Skilled Therapeutic Interventions Met (OT) yes;skilled treatment is necessary -KF Therapy Frequency (OT) daily -KF Predicted Duration of Therapy Intervention (OT) 10 days -KF Row Name 01/26/25 1313 Therapy Plan Review/Discharge Plan (OT) Anticipated Discharge Disposition (OT) intermediate facility -KF Row Name 01/26/25 1319 Vital [...] 12 -REGI Row Name 01/26/25 1321 Modified [place] Scale Pre-Stroke Modified Dimitry Scale 6 - [...] Nurse Occupational Therapy Education Title: PT OT CLEARANCE CUTTER Therapies (In Progress) Topic: Occupational Therapy (In Progress) Point: ADL training (In Progress) Learning Progress Summary Patient Acceptance, TB,E, NR by at 01/26/2025 1144 Point: Precautions (In Progress) Learning Progress Summary Patient Acceptance, TB,E, NR by at 01/26/2025 1144 Point: Body mechanics (In Progress) Learning Progress Summary Patient Acceptance, TB,E, NR by at 01/26/2025 1144 User Thompson Initials Effective Dates Name Provider Type [facility] 11/08/22 - Shelly Saleem, MALICK Occupational Therapist [...] Description Service Date Service Provider Modifiers Qty [id number] OT EVAL MOD COMPLEXITY 4 01/26/2025 Shelly [...] total knee replacement, right 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 [...] Surgeon: Bautista Luis MD; Location: [facility]; Service: Orthopedics TUBAL ABDOMINAL LIGATION 1989 General Information Row Name 01/26/25 1328 Physical Therapy Time and Intention Document Type evaluation -TT Mode of Treatment physical therapy;co-treatment -TT Row Name 01/26/25 1329 General Information Patient Profile Reviewed yes -TT Prior Level of Function independent:;all household mobility;community mobility;ADL's;driving Pt is somewhat questionnable historian, Rollator at baseline. Noting history of falls, unable to describe -TT Existing Precautions/Restrictions fall;other (see comments) Duran -TT Barriers to Rehab medically complex;previous functional deficit -TT Row Name 01/26/25 1323 Living Environment Current Living Arrangements home -TT People in Home spouse -TT Row Name 01/26/25 1328 Home Main Entrance Number of Stairs, Main Entrance other (see comments) Pt reports she does have stairs at home, but was unsure how many. -TT Row Name 01/26/25 132 Cognition Orientation Status (Cognition) oriented x 3;verbal cues/prompts needed for orientation -TT Row Name 01/26/25 1322 Safety Issues/Impairments Affecting Functional Mobility Safety Issues [...] Bed Mobility Bed Mobility supine-sit -TT Supine-Sit [place] (Bed Mobility) standby assist -TT Assistive Device (Bed Mobility) bed rails;head of bed elevated -TT Comment, (Bed Mobility) Cues for improved sequencing and safety awareness. Impulsively attempting to transition to EOb prior to appropriate line management requiring frequent cues. -TT Row Name 01/26/25 1331 Transfers Comment, (Transfers) STS from EOB w/ FWW. -TT Row Name 01/26/25 1331 Sit-Stand Transfer Sit-Stand [place] (Transfers) minimum assist (75% patient effort);2 person assist;verbal cues -TT Assistive Device (Sit-Stand Transfers) walker, front-wheeled -TT Comment, (Sit-Stand Transfer) Cues for UE placement and improved initiation. Physical assistance d/t impaired initiation and unsteadiness. W/ return to sitting, cues for improved AD management and eccentric control. -TT Row Name 01/26/25 1331 Gait/Stairs (Locomotion) [place] Level (Gait) nonverbal cues (demo/gesture);verbal cues;minimum assist [...] extremity ROM WFL -TT Row Name 01/26/25 1338 Strength Comprehensive (MMT) General Manual Muscle Testing (MMT) Assessment lower extremity strength deficits identified -TT Comment, General Manual Muscle Testing (MMT) Assessment BLE grossly 4/5 observed w/ functional mobility -TT Row Name 01/26/25 1336 Balance Balance Assessment sitting static balance;sitting dynamic [...] PT Physical Therapist Goals/Plan Row Name 01/26/25 6347 Bed Mobility Goal 1 (PT) Activity/Assistive Device (Bed Mobility Goal 1, PT) sit to supine/supine to sit -TT [place] Level/Cues Needed (Bed Mobility Goal 1, PT) independent -TT Time Frame (Bed Mobility Goal 1, PT) short term goal (STG);4 days -TT Progress/Outcomes (Bed Mobility Goal 1, PT) new goal -TT Row Name 01/26/25 9707 Transfer Goal 1 (PT) Activity/Assistive Device (Transfer Goal 1, PT) qin-dy-yzxwc/osptx-sr-wrk;kbu-yj-fkhsf/uktxh-tk-klk-TT [place] Level/Cues Needed (Transfer Goal 1, PT) modified independence -TT Time Frame (Transfer Goal 1, PT) terminal makeup operator goal (LTG);10 days -TT Progress/Outcome (Transfer Goal 1, PT) new goal -TT Row Name 01/26/25 1335 Gait Training Goal 1 (PT) Activity/Assistive Device (Gait Training Goal 1, PT) gait (walking locomotion);decrease fall risk;increase endurance/gait distance -TT [place] Level (Gait Training Goal 1, PT) modified independence -TT Distance (Gait Training Goal 1, PT) 250ft -TT Time Frame (Gait Training Goal 1, PT) terminal makeup operator goal (LTG);10 days -TT Progress/Outcome (Gait Training Goal 1, PT) new goal -TT Row Name 01/26/25 6920 Therapy Assessment/Plan (PT) Planned Therapy Interventions (PT) balance training;bed mobility training;gait training;home exercise program;patient/family education;postural re- education;stair training;strengthening;transfer training -TT User Thompson (r) = Recorded By, (t) = Taken By, (c) = Cosigned By Initials Name Provider Type TT Dinora Huston, PT Physical Therapist Clinical Impression Row Name 01/26/25 0947 Pain Pretreatment Pain Rating 10/10 -TT Posttreatment Pain Rating 10/10 -TT Pain Side/Orientation generalized -TT Pain Management Interventions activity modification encouraged;exercise or physical activity utilized;nursing notified;positioning techniques utilized -TT Response to Pain Interventions no change per patient report -TT Row Name 01/26/25 3141 Plan of Care Review Plan of Care [...] closely monitor pt's progress.-TT Row Name 01/26/25 4729 Therapy Assessment/Plan (PT) Patient/Family Therapy Goals Statement [...] Row Name 01/26/25 1338 01/26/25 1321 Modified [place] Scale Pre-Stroke Modified [place] Scale 6 - Unable to determine (UTD) from the medical record documentation -TT 6 - Unable to determine (UTD) from the medical record documentation -KF Modified [place] Scale 4 - Moderately severe disability. Unable to walk without assistance, and unable to attend to own bodily needs without assistance. -TT 4 - Moderately severe disability. Unable towalk without assistance, and unable to attend to own bodily needs without assistance. -KF Row Name 01/26/25 1338 01/26/25 1321 Functional Assessment Outcome Measure Options AM-PAC 6 Clicks Basic Mobility (PT);Modified [place] -TT AM-PAC 6 Clicks Daily Activity (OT);Modified [place] -KF User Thompson (r) = Recorded By, (t) = Taken By, (c) = Cosigned By Initials Name Provider Type Lainey Torres, SPENCER Registered Nurse Shelly Lam, OT Occupational Therapist Minnie Solomon, SPENCER Registered Nurse TT Dinora Huston, PT Physical Therapist Physical Therapy Education Title: PT OT CLEARANCE CUTTER Therapies (In Progress) Topic: Physical Therapy (In [...] moderate complexity PT Charges Row Name 01/26/25 133 Time Calculation Start Time 1144 -TT PT [...] Description Service Date Service Provider Modifiers Qty [id number] PT EVAL MOD COMPLEXITY 4 01/26/2025 Dinora Huston PT GP 1 PT G-Codes Outcome Measure Options: AM-PAC 6 Clicks Basic Mobility (PT), Modified [place] AM-PAC 6 Clicks Score (PT): 17 AM-PAC 6 Clicks Score (OT): 14 Modified Dimitry Scale: 4 - Moderately severe disability. Unable to walk without assistance, and unable to attend to own bodily needs without assistance. PT Discharge Summary Anticipated Discharge Disposition (PT): intermediate facility Dinora Huston, PT 01/26/2025 documented in [...] * Telemetry Scan (01/29/2025 2:57 AM EDT) [facility] ECG ORDERABLES Final Result * Potassium (01/28/2025 9:51 PM EDT) [facility] Potassium 3.8 3.5 - 5.2 mmol/L 01/28/2025 10:10 PM EDT [facility] Blood Venipuncture / Unknown 01/28/2025 9:51 PM EDT 01/28/2025 9:57 PM EDT Jessica Valdovinos DO LAB BLOOD ORDERABLES F inal Result [facility]
[address] [place] [address], [place] [phone] * (ABNORMAL) CBC (No Diff) (01/28/2025 10:34 AM EDT) WBC 12.20(H) 3.40 - 10.80 10*3/mm3 01/28/2025 11:45 AM EDT [facility] RBC 3.86 3.77 - 5.28 10*6/mm3 01/28/2025 11:45 AM EDT [facility] Hemoglobin 11.6(L) 12.0 - 15.9 g/dL 01/28/2025 11:45 AM EDT [facility] Hematocrit 35.5 34.0 - 46.6 % 01/28/2025 11:45 AM EDT [facility] MCV 92.0 79.0 - 97.0 fL 01/28/2025 11:45 AM EDT [facility] MCH 30.1 26.6 - 33.0 pg 01/28/2025 11:45 AM EDT [facility] MCHC 32.7 31.5 - 35.7 g/dL 01/28/2025 11:45 AM EDT [facility] RDW 13.5 12.3 - 15.4 % 01/28/2025 11:45 AM EDT [facility] RDW-SD 46.2 37.0 - 54.0 fl 01/28/2025 11:45 AM EDT [facility] MPV 9.6 6.0 - 12.0 fL 01/28/2025 11:45 AM EDT [facility] Platelets 301 140 - 450 10*3/mm3 01/28/2025 11:45 AM EDT [facility] Blood Venipuncture / Unknown 01/28/2025 10:34 AM EDT 01/28/2025 11:41 AM EDT us Andrew Barkley MD LAB BLOOD ORDERABLES Final R esult [facility]
[address] [place] [address], * (ABNORMAL) Basic Metabolic Panel (01/28/2025 10:34 AM EDT) Glucose 117(H) 65 - 99 mg/dL 01/28/2025 12:14 PM EDT [facility] BUN 6.4(L) 8.0 - 23.0 mg/dL 01/28/2025 12:14 PM EDT [facility] Creatinine 0.85 0.57 - 1.00 mg/dL 01/28/2025 12:14 PM EDT [facility] Sodium 139 136 - 145 mmol/L 01/28/2025 12:14 PM EDT [facility] Potassium 3.3(L) 3.5 - 5.2 mmol/L 01/28/2025 12:14 PM EDT [facility] Chloride 103 98 - 107 mmol/L 01/28/2025 12:14 PM EDT [facility] CO2 20.6(L) 22.0 - 29.0 mmol/L 01/28/2025 12:14 PM EDT [facility] Calcium 8.8 8.6 - 10.5 mg/dL 01/28/2025 12:14 PM EDT [facility] BUN/Creatinine Ratio 7.5 7.0 - 25.0 01/28/2025 12:14 PM EDT [facility] Anion Gap 15.4(H) 5.0 - 15.0 mmol/L 01/28/2025 12:14 PM EDT [facility] eGFR 72.4 >60.0 mL/min/1.7 3 01/28/2025 12:14 PM T [facility] Blood Venipuncture / Unknown 01/28/2025 10:34 AM EDT 01/28/2025 11:41 AM EDT [facility] - 01/28/2025 12:14 PM EDT GFR [...] ORDERABLES Final R esult Performing Organization Address City/[facility]/ZIP Co de Phone Number [facility]
[address] [place] [address], * Telemetry Scan (01/28/2025 8:20 AM EDT) [facility] ECG ORDERABLES Final Result * Potassium (01/27/2025 6:45 PM EDT) Pathologist [facility] Potassium 3.8 3.5 - 5.2 mmol/L 01/27/2025 7:27 PM EDT [facility] Comment:Specimen hemolyzed. Result may be falsely elevated. Blood Venipuncture / Unknown 01/27/2025 6:45 PM EDT 01/27/2025 7:06 PM EDT Andrew Barkley MD LAB BLOOD ORDERABLES Final R esult Performing Organization Address City/[facility]/ZIP Co de Phone Number [facility]
[address] [place] [address], * (ABNORMAL) Basic Metabolic Panel (01/27/2025 4:54 AM EDT) Glucose 92 65 - 99 mg/dL 01/27/2025 5:36 AM EDT [facility] BUN 10.9 8.0 - 23.0 mg/dL 01/27/2025 5:36 AM EDT [facility] Creatinine 0.96 0.57 - 1.00 mg/dL 01/27/2025 5:36 AM EDT [facility] Sodium 141 136 - 145 mmol/L 01/27/2025 5:36 AM EDT [facility] Potassium 3.2(L) 3.5 - 5.2 mmol/L 01/27/2025 5:36 AM EDT [facility] Chloride 107 98 - 107 mmol/L 01/27/2025 5:36 AM EDT [facility] CO2 22.6 22.0 - 29.0 mmol/L 01/27/2025 5:36 AM EDT [facility] Calcium 8.6 8.6 - 10.5 mg/dL 01/27/2025 5:36 AM EDT [facility] BUN/Creatinine Ratio 11.4 7.0 - 25.0 01/27/2025 5:36 AM EDT [facility] Anion Gap 11.4 5.0 - 15.0 mmol/L 01/27/2025 5:36 AM EDT [facility] eGFR 62.6 >60.0 mL/min/1.7 3 01/27/2025 5:36 AM EDT [facility] Blood Venipuncture / Unknown 01/27/2025 4:54 AM EDT 01/27/2025 5:02 AM EDT [facility] - 01/27/2025 5:36 AM EDT GFR [...] race as a factor us Maru Martinez DISINTEGRATOR OPERATOR LAB BLOOD ORDERABLES Final Result [facility]
[address] [place] [address], * (ABNORMAL) CBC (No Diff) (01/27/2025 4:54 AM EDT) WBC 9.35 3.40 - 10.80 10*3/mm3 01/27/2025 5:32 AM EDT [facility] Comment:Result checked RBC 3.40(L) 3.77 - 5.28 10*6/mm3 01/27/2025 5:32 AM EDT [facility] Hemoglobin 10.2(L) 12.0 - 15.9 g/dL 01/27/2025 5:32 AM EDT [facility] Hematocrit 32.3(L) 34.0 - 46.6 % 01/27/2025 5:32 AM EDT [facility] MCV 95.0 79.0 - 97.0 fL 01/27/2025 5:32 AM EDT [facility] MCH 30.0 26.6 - 33.0 pg 01/27/2025 5:32 AM EDT [facility] MCHC 31.6 31.5 - 35.7 g/dL 01/27/2025 5:32 AM EDT [facility] RDW 13.8 12.3 - 15.4 % 01/27/2025 5:32 AM EDT [facility] RDW-SD 47.9 37.0 - 54.0 fl 01/27/2025 5:32 AM EDT [facility] MPV 9.1 6.0 - 12.0 fL 01/27/2025 5:32 AM EDT [facility] Platelets 226 140 - 450 10*3/mm3 01/27/2025 5:32 AM EDT [facility] Blood Venipuncture / Unknown 01/27/2025 4:54 AM EDT 01/27/2025 5:02 AM EDT Maru Martinez APRN LAB BLOOD ORDERABLES Final Result [facility]
[address] [place] [address], * MRI Brain With Contrast (01/27/2025 1:28 AM EDT) Anatomical Region Laterality Modality Head, Neck N/A Magnetic Resonan ce 01/27/2025 2:00 AM EDT Impressions 01/27/2025 2:05 AM EDT Impression: No pathologic contrast enhancement. 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 Electronically Signed: Jesus Peterson MD 01/27/2025 2:05 AM EDT Workstation ID: [id number] Narrative 01/27/2025 2:05 AM EDT MRI BRAIN [...] be included in the differential. Procedure Note eJsus Peterson MD - 01/27/2025 MRI BRAIN W [...] MD 01/27/2025 2:05 AM EDT Workstation ID: [id number] Adama Maher MD IMG MRI ORDERABLES Final Result * POC Glucose Once (01/26/2025 5:38 PM EDT) Glucose 91 70 - 130 mg/dL 01/26/2025 5:40 PM EDT [facility] Comment:Serial Number: [id number]: [id number] Nova Comment 1 Follow unit protocol 01/26/2025 5:40 PM EDT [facility] Blood 01/26/2025 5:38 PM EDT 01/26/2025 5:40 PM EDT Andrew Barkley MD POINT OF CARE TEST ORDERABLE S Final Result Performing Organization Address [facility] de Phone Number [facility]
[address] [place] [address], * POC Glucose Once (01/26/2025 12:19 PM EDT) Glucose 98 70 - 130 mg/dL 01/26/2025 12:22 PM EDT [facility] Comment:Serial Number: [id number]: [id number] Nova Comment 1 Follow unit protocol 01/26/2025 12:22 PM EDT [facility] Blood 01/26/2025 12:1 9 PM EDT 01/26/2025 12:22 PM EDT Andrew Barkley MD POINT OF CARE TEST ORDERABLE S Final Result Performing Organization Address [facility] Co de Phone Number [facility]
[address] [place] [address], * ECHO COMPLETE W/ DOPPLER AND COLOR [...] - 2.0 mmol/L 01/26/2025 11:33 AM EDT [facility] Comment:Falsely depressed re sults may occur on samples drawn from patients receiving N-Acetylcysteine (NAC) or Metamizole. Blood Venipuncture / Unknown 01/26/2025 10:44 AM EDT 01/26/2025 11:00 AM EDT Maru Martinez DISINTEGRATOR OPERATOR LAB BLOOD ORDERABLES Final Result Performing Organization Address [facility] de Phone Number [facility]
[address] [place] [address], * (ABNORMAL) STAT Lactic Acid, Reflex (01/26/2025 6:51 AM EDT) Lactate 2.2(HH) 0.5 - 2.0 mmol/L 01/26/2025 7:24 AM EDT [facility] Comment:Falsely depressed re sults may occur on samples drawn from patients receiving N-Acetylcysteine (NAC) or Metamizole. Blood Structure of right upper limb / Unknown Venipuncture / Unknown 01/26/2025 6:51 AM EDT 01/26/2025 6:59 AM EDT Maru Martinez DISINTEGRATOR OPERATOR LAB BLOOD ORDERABLES Final Result Performing Organization Address [facility] de Phone Number [facility]
[address] [place] [address], * (ABNORMAL) Vancomycin, Random (01/26/2025 6:51 AM EDT) Vancomycin Random 42.10(HH) 5.00 - 40.00 mcg/mL 01/26/2025 7:53 AM EDT [facility] Blood Structure of right upper limb / Unknown Venipuncture / Unknown 01/26/2025 6:51 AM EDT 01/26/2025 7:01 AM EDT Narrative [facility] - 01/26/2025 7:53 AM EDT Therapeutic Ranges for Vancomycin Vancomycin Random 5.0-40.0 mcg/mL Vancomycin Trough 5.0-20.0 mcg/mL Vancomycin Peak 20.0-40.0 mcg/mL Aline Tavarez PharmD LAB BLOOD ORDERABLES Final R esult Performing Organization Address City/[facility]/ZIP Co de Phone Number [facility]
[address] [place] [address], * (ABNORMAL) Hemoglobin A1c (01/26/2025 6:51 AM EDT) Hemoglobin A1C 5.67(H) 4.80 - 5.60 % 01/26/2025 8:56 AM EDT [facility] Blood Structure of right upper limb / Unknown Venipuncture / Unknown 01/26/2025 6:51 AM EDT 01/26/2025 7:01 AM EDT Narrative [facility] - 01/26/2025 8:56 AM EDT Hemoglobin A1C Ranges: Increased Risk for Diabetes 5.7% to 6.4% Diabetes >= 6.5% Diabetic Goal < 7.0% Rayshawn Hercules PA-C LAB BLOOD ORDERABLE S Final Result Performing Organization Address City/[facility]/ZIP Co de Phone Number [facility]
[address] [place] [address], * EEG AWAKE OR ASLEEP PORTABLE (01/26/2025 6:30 AM EDT) Impressions NEUROLOGY - 01/26/2025 8:58 AM EDT Diffuse cerebral dysfunction of at least mild degree, nonspecific but most commonly seen due to toxic/metabolic cause No ongoing seizures are present This report is transcribed using the [employer] dictation system. Narrative NEUROLOGY - 01/26/2025 8:58 [...] demonstrate no acute abnormality Procedure Note Johann aRmos MD - 01/26/2025 MRI BRAIN WO CONTRAST [...] - 130 mg/dL 01/26/2025 5:23 AM EDT [facility] Comment:Serial Number: [id number] Blood 01/26/2025 5:20 AM EDT 01/26/2025 5:23 AM EDT Rayshawn Baldwin MD POINT OF CARE TEST ORDERABLE S Final Result [facility]
[address] [place] [address], * (ABNORMAL) High Sensitivity Troponin T 1Hr (01/26/2025 3:28 AM EDT) HS Troponin T 22(H) <14 ng/L 01/26/2025 3:57 AM EDT [facility] Troponin T Numeric Delta -1 ng/L 01/26/2025 3:57 AM EDT [facility] Troponin T % Delta -4 Abnormal if >/= 20% 01/26/2025 3:57 AM EDT [facility] Blood Line / Unknown 01/26/2025 3: 28 AM EDT 01/26/2025 3:37 AM EDT Narrative [facility] - 01/26/2025 3:57 AM EDT [...] underlying chronic condition. us Maru R Juan DISINTEGRATOR OPERATOR LAB BLOOD ORDERABLES Final Result [facility]
[address] [place] [address], * ECG 12 Lead QT Measurement (01/26/2025 [...] By: NEERAJ KHAN MD us Maru Martinez DISINTEGRATOR OPERATOR ECG ORDERABLES Final Resu lt ECG * (ABNORMAL) Urinalysis, Microscopic Only - Indwelling Urethral Catheter (01/26/2025 2:57 AM EDT) RBC, UA 6-10(A) None Seen, 0-2 /HPF 01/26/2025 3:25 AM EDT [facility] WBC, UA 11-20(A) None Seen, 0-2 /HPF 01/26/2025 3:25 AM EDT [facility] Bacteria, UA None Seen None Seen /HPF 01/26/2025 3:25 AM EDT [facility] Squamous Epithelial Cells, UA 0-2 None Seen, 0-2 /HPF 01/26/2025 3:25 AM EDT [facility] Hyaline Casts, UA None Seen None Seen /LPF 01/26/2025 3:25 AM EDT [facility] Methodology Automated Microscopy 01/26/2025 3:25 AM EDT [facility] Urine (Indwelling Urethral Catheter) Collection / Unknown 01/26/2025 2:57 AM EDT 01/26/2025 3:13 AM EDT us Maru Martinez DISINTEGRATOR OPERATOR URINE ORDERABLES Final Res ult Performing Organization Address City/[facility]/ZIP Co de Phone Number [facility]
[address] [place] [address], * Fentanyl, Urine - Indwelling Urethral Catheter (01/26/2025 2:57 AM EDT) Fentanyl, Urine Negative Negative 01/26/2025 3:40 AM EDT [facility] Urine (Indwelling Urethral Catheter) Collection / Unknown 01/26/2025 2:57 AM EDT 01/26/2025 3:13 AM EDT Narrative [facility] - 01/26/2025 3:40 AM EDT Negative [...] unconfirmed results are used. us Maru Martinez DISINTEGRATOR OPERATOR URINE ORDERABLES Final Res ult [facility]
[address] [place] [address], * (ABNORMAL) Urine Drug Screen - Indwelling Urethral Catheter (01/26/2025 2:57 AM EDT) THC, Screen, Urine Negative Negative 2024 3:27 AM EDT [facility] Phencyclidine (PCP), Urine Negative Negative 01/26/2025 3:27 AM EDT [facility] Cocaine Screen, Urine Negative Negative 01/26/2025 3:27 AM EDT [facility] Methamphetamine, Ur Negative Negative 01/26/2025 3:27 AM EDT [facility] Opiate Screen Negative Negative 01/26/2025 3:27 AM EDT [facility] Amphetamine Screen, Urine Negative Negative 01/26/2025 3:27 AM EDT [facility] Benzodiazepine Screen, Urine Negative Negative 01/26/2025 3:27 AM EDT [facility] Tricyclic Antidepressants Screen Positive(A) Negative 01/26/2025 3:27 AM EDT [facility] Methadone Screen, Urine Negative Negative 01/26/2025 3:27 AM EDT [facility] Barbiturates Screen, Urine Negative Negative 01/26/2025 3:27 AM EDT [facility] Oxycodone Screen, Urine Positive(A) Negative 01/26/2025 3:[facility] Buprenorphine, Screen, Urine Negative Negative 01/26/2025 3:27 AM EDT [facility] Urine (Indwelling Urethral Catheter) Collection / Unknown 01/26/2025 2:57 AM EDT 01/26/2025 3:13 AM EDT Narrative [facility] - 01/26/2025 3:27 AM EDT Cutoff [...] unconfirmed results are used. us Maru Martinez DISINTEGRATOR OPERATOR URINE ORDERABLES Final Res ult [facility]
[address] [place] [address], * (ABNORMAL) Urinalysis With Microscopic If Indicated (No Culture) - Indwelling Urethral Catheter (01/26/2025 2:57 AM EDT) Color, UA Yellow Yellow, Straw 01/26/2025 3:25 AM EDT [facility] Appearance, UA Clear Clear 01/26/2025 3:25 AM EDT [facility] pH, UA 5.5 5.0 - 8.0 01/26/2025 3:25 AM EDT [facility] Specific Usk, UA >1.030(H) 1.005 - 1.030 01/26/2025 3:25 AM EDT [facility] Glucose, UA Negative Negative 01/26/2025 3:25 AM EDT [facility] Ketones, UA Negative Negative 01/26/2025 3:25 AM EDT [facility] Bilirubin, UA Negative Negative 01/26/2025 3:25 AM EDT [facility] Blood, UA Moderate (2+)(A) Negative 01/26/2025 3:25 AM EDT [facility] Protein, UA Trace(A) Negative 01/26/2025 3:25 AM EDT [facility] Leuk Esterase, UA Small (1+)(A) Negative 01/26/2025 3:25 AM EDT [facility] Nitrite, UA Negative Negative 01/26/2025 3:25 AM EDT [facility] Urobilinogen, UA 0.2 E.U./dL 0.2 - 1.0 E.U./dL 01/26/2025 3:25 AM EDT [facility] Urine (Indwelling Urethral Catheter) Collection / Unknown 01/26/2025 2:57 AM EDT 01/26/2025 3:13 AM EDT us Maru Martinez DISINTEGRATOR OPERATOR URINE ORDERABLES Final Res ult Performing Organization Address City/[facility]/ZIP Co de Phone Number [facility]
[address] [place] [address], * (ABNORMAL) POC Glucose Once (01/26/2025 2:38 AM EDT) Glucose 150(H) 70 - 130 mg/dL 01/26/2025 5:06 AM EDT [facility] Comment:Serial Number: [id number] Blood 01/26/2025 2:38 AM EDT 01/26/2025 5:06 AM EDT us Rayshawn Baldwin MD POINT OF CARE TEST ORDERABLE S Final Result [facility]
[address] [place] [address], * LSAC Slide Creation (01/26/2025 2:09 AM EDT) Blood Line / Unknown 01/26/2025 2: 09 AM EDT 01/26/2025 2:20 AM EDT Maru Martinez DISINTEGRATOR OPERATOR LAB BLOOD ORDER ONLY Final Result [facility]
[address] [place] [address], * (ABNORMAL) CBC Auto Differential (01/26/2025 2:09 AM EDT) WBC 18.88(H) 3.40 - 10.80 10*3/mm3 01/26/2025 2:48 AM EDT [facility] RBC 3.98 3.77 - 5.28 10*6/mm3 01/26/2025 2:48 AM EDT [facility] Hemoglobin 11.6(L) 12.0 - 15.9 g/dL 01/26/2025 2:48 AM EDT [facility] Hematocrit 35.6 34.0 - 46.6 % 01/26/2025 2:48 AM EDT [facility] MCV 89.4 79.0 - 97.0 fL 01/26/2025 2:48 AM EDT [facility] MCH 29.1 26.6 - 33.0 pg 01/26/2025 2:48 AM EDT [facility] MCHC 32.6 31.5 - 35.7 g/dL 01/26/2025 2:48 AM EDT [facility] RDW 13.6 12.3 - 15.4 % 01/26/2025 2:48 AM EDT [facility] RDW-SD 45.1 37.0 - 54.0 fl 01/26/2025 2:48 AM EDT [facility] MPV 9.4 6.0 - 12.0 fL 01/26/2025 2:48 AM EDT [facility] Platelets 411 140 - 450 10*3/mm3 01/26/2025 2:48 AM EDT [facility] Blood Line / Unknown 01/26/2025 2: 09 AM EDT 01/26/2025 2:20 AM EDT Maru Martinez DISINTEGRATOR OPERATOR LAB BLOOD ORDERABLES Final Result [facility]
[address] [place] [address], * (ABNORMAL) Manual Differential (01/26/2025 2:09 AM EDT) Neutrophil % 81.0(H) 42.7 - 76.0 % 01/26/2025 2:48 AM EDT [facility] Lymphocyte % 9.0(L) 19.6 - 45.3 % 01/26/2025 2:48 AM EDT [facility] Monocyte % 3.0(L) 5.0 - 12.0 % 01/26/2025 2:48 AM EDT [facility] Eosinophil % 0.0(L) 0.3 - 6.2 % 01/26/2025 2:48 AM EDT [facility] Basophil % 0.0 0.0 - 1.5 % 01/26/2025 2:48 AM EDT [facility] Bands % 5.0 0.0 - 5.0 % 01/26/2025 2:48 AM EDT [facility] Atypical Lymphocyte % 2.0 0.0 - 5.0 % 01/26/2025 2:48 AM EDT [facility] Neutrophils Absolute 16.24(H) 1.70 - 7.00 10*3/mm3 01/26/2025 2:48 AM EDT [facility] Lymphocytes Absolute 2.08 0.70 - 3.10 10*3/mm3 01/26/2025 2:48 AM EDT [facility] Monocytes Absolute 0.57 0.10 - 0.90 10*3/mm3 01/26/2025 2:48 AM EDT [facility] Eosinophils Absolute 0.00 0.00 - 0.40 10*3/mm3 01/26/2025 2:48 AM EDT [facility] Basophils Absolute 0.00 0.00 - 0.20 10*3/mm3 01/26/2025 2:48 AM EDT [facility] RBC Morphology Normal Normal 01/26/2025 2:48 AM EDT [facility] WBC Morphology Normal Normal 01/26/2025 2:48 AM EDT [facility] Platelet Morphology Normal Normal 01/26/2025 2:48 AM EDT [facility] Blood Line / Unknown 01/26/2025 2: 09 AM EDT 01/26/2025 2:20 AM EDT Maru Martinez DISINTEGRATOR OPERATOR LAB BLOOD ORDERABLES Final Result [facility]
[address] [place] [address], * TSH Rfx On Abnormal To Free T4 (01/26/2025 2:09 AM EDT) [facility] TSH 1.430 0.270 - 4.200 uIU/mL 01/26/2025 2:50 AM EDT [facility] Blood Line / Unknown 01/26/2025 2: 09 AM EDT 01/26/2025 2:20 AM EDT Maru Martinez DISINTEGRATOR OPERATOR LAB BLOOD ORDERABLES Final Result [facility]
[address] [place] [address], [place] [phone] * (ABNORMAL) High Sensitivity Troponin T (01/26/2025 2:09 AM EDT) [facility] HS Troponin T 23(H) <14 ng/L 01/26/2025 2:50 AM EDT [facility] Blood Line / Unknown 01/26/2025 2: 09 AM EDT 01/26/2025 2:20 AM EDT [facility] - 01/26/2025 2:50 AM EDT High [...] BLOOD ORDERABLES Final Result Performing Organization Address City/[facility]/ZIP Co de Phone Number [facility]
[address] [place] [address], * Protime-INR (01/26/2025 2:09 AM EDT) [facility] Protime 13.9 12.2 - 15.3 Seconds 01/26/2025 2:56 AM EDT [facility] INR 1.01 0.89 - 1.12 01/26/2025 2:56 AM EDT [facility] Blood Line / Unknown 01/26/2025 2: 09 AM EDT 01/26/2025 2:20 AM EDT Maru Martinez DISINTEGRATOR OPERATOR LAB BLOOD ORDERABLES Final Result [facility]
[address] [place] [address], * Procalcitonin (01/26/2025 2:09 AM EDT) [facility] Procalcitonin 0.15 0.00 - 0.25 ng/mL 01/26/2025 2:50 AM EDT [facility] Blood Line / Unknown 01/26/2025 2: 09 AM EDT 01/26/2025 2:20 AM EDT Narrative [facility] - 01/26/2025 2:50 AM EDT [...] Day 4 values are available. Refer to http://www.szroup-xsc-njznplbirp.com Change in PCT <=80% A decrease of [...] Martinez APRN LAB BLOOD ORDERABLES Final Result [facility]
[address] [place] [address], * Phosphorus (01/26/2025 2:09 AM EDT) Phosphorus 3.6 2.5 - 4.5 mg/dL 01/26/2025 2:50 AM EDT [facility] Blood Line / Unknown 01/26/2025 2: 09 AM EDT 01/26/2025 2:20 AM EDT Maru Martinez DISINTEGRATOR OPERATOR LAB BLOOD ORDERABLES Final Result [facility]
[address] [place] [address], * Magnesium (01/26/2025 2:09 AM EDT) Pathologist [facility] Magnesium 2.1 1.6 - 2.4 mg/dL 01/26/2025 2:50 AM EDT [facility] Blood Line / Unknown 01/26/2025 2: 09 AM EDT 01/26/2025 2:20 AM EDT Maru Martinez APRN LAB BLOOD ORDERABLES Final Result [facility]
[address] [place] [address], * (ABNORMAL) Lipid Panel (01/26/2025 2:09 AM EDT) Total Cholesterol 209(H) 0 - 200 mg/dL 01/26/2025 2:50 AM EDT [facility] Triglycerides 149 0 - 150 mg/dL 01/26/2025 2:50 AM EDT [facility] HDL Cholesterol 70(H) 40 - 60 mg/dL 01/26/2025 2:50 AM EDT [facility] LDL Cholesterol 113(H) 0 - 100 mg/dL 01/26/2025 2:50 AM EDT [facility] VLDL Cholesterol 26 5 - 40 mg/dL 01/26/2025 2:50 AM EDT [facility] LDL/HDL Ratio 1.56 01/26/2025 2:50 AM EDT [facility] Blood Line / Unknown 01/26/2025 2: 09 AM EDT 01/26/2025 2:20 AM EDT Narrative [facility] - 01/26/2025 2:50 AM EDT [...] using the NIH LDL-C calculation. Maru Martinez DISINTEGRATOR OPERATOR LAB BLOOD ORDERABLES Final Result [facility]
[address] [place] [address], * Lipase (01/26/2025 2:09 AM EDT) Lipase 20 13 - 60 U/L 01/26/2025 2:50 AM EDT [facility] Blood Line / Unknown 01/26/2025 2: 09 AM EDT 01/26/2025 2:20 AM EDT Maru Martinez DISINTEGRATOR OPERATOR LAB BLOOD ORDERABLES Final Result [facility]
[address] [place] [address], [place] [phone] * (ABNORMAL) Lactic Acid, Plasma (01/26/2025 2:09 AM EDT) Pathologist [facility] Lactate 2.7(HH) 0.5 - 2.0 mmol/L 01/26/2025 2:45 AM EDT [facility] Comment:Falsely depressed re sults may occur on samples drawn from patients receiving N-Acetylcysteine (NAC) or Metamizole. Blood Line / Unknown 01/26/2025 2: 09 AM EDT 01/26/2025 2:20 AM EDT Maru Martinez DISINTEGRATOR OPERATOR LAB BLOOD ORDERABLES Final Result [facility]
[address] [place] [address], * (ABNORMAL) Comprehensive Metabolic Panel (01/26/2025 2:09 AM EDT) Pathologist [facility] Glucose 154(H) 65 - 99 mg/dL 01/26/2025 2:50 AM EDT [facility] BUN 20.1 8.0 - 23.0 mg/dL 01/26/2025 2:50 AM EDT [facility] Creatinine 1.30(H) 0.57 - 1.00 mg/dL 01/26/2025 2:50 AM EDT [facility] Sodium 142 136 - 145 mmol/L 01/26/2025 2:50 AM EDT [facility] Potassium 3.9 3.5 - 5.2 mmol/L 01/26/2025 2:50 AM EDT [facility] Chloride 107 98 - 107 mmol/L 01/26/2025 2:50 AM EDT [facility] CO2 21.1(L) 22.0 - 29.0 mmol/L 01/26/2025 2:50 AM EDT [facility] Calcium 9.0 8.6 - 10.5 mg/dL 01/26/2025 2:50 AM EDT [facility] Total Protein 6.9 6.0 - 8.5 g/dL 01/26/2025 2:50 AM EDT [facility] Albumin 4.0 3.5 - 5.2 g/dL 01/26/2025 2:50 AM EDT [facility] ALT (SGPT) 19 1 - 33 U/L 01/26/2025 2:50 AM EDT [facility] AST (SGOT) 30 1 - 32 U/L 01/26/2025 2:50 AM T [facility] Alkaline Phosphatase 120(H) 39 - 117 U/L 01/26/2025 2:50 AM EDT [facility] Total Bilirubin 0.4 0.0 - 1.2 mg/dL 01/26/2025 2:50 AM EDT [facility] Globulin 2.9 gm/dL 01/26/2025 2:50 AM [facility] Comment:Calculated Result A/G Ratio 1.4 g/dL 01/26/2025 2:50 AM [facility] BUN/Creatinine Ratio 15.5 7.0 - 25.0 01/26/2025 2:50 AM [facility] Anion Gap 13.9 5.0 - 15.0 mmol/L 01/26/2025 2:50 AM [facility] eGFR 43.5(L) >60.0 mL/min/1.7 3 01/26/2025 2:50 AM [facility] Blood Line / Unknown 01/26/2025 2: 09 AM EDT 01/26/2025 2:20 AM EDT [facility] - 01/26/2025 2:50 AM EDT GFR [...] include race as a factor Maru Martinez DISINTEGRATOR OPERATOR LAB BLOOD ORDERABLES Final Result Performing Organization Address City/[facility]/ZIP Co de Phone Number [facility]
[address] [place] [address], * (ABNORMAL) CK (01/26/2025 2:09 AM EDT) Creatine Kinase 206(H) 20 - 180 U/L 01/26/2025 2:50 AM EDT [facility] Blood Line / Unknown 01/26/2025 2: 09 AM EDT 01/26/2025 2:20 AM EDT Maru Martinez DISINTEGRATOR OPERATOR LAB BLOOD ORDERABLES Final Result Performing Organization Address [facility] de Phone Number [facility]
[address] [place] [address], * aPTT (01/26/2025 2:09 AM EDT) Pathologist [facility] PTT 26.2 22.0 - 39.0 seconds 01/26/2025 2:56 AM EDT [facility] Blood Line / Unknown 01/26/2025 2: 09 AM EDT 01/26/2025 2:20 AM EDT Narrative [facility] - 01/26/2025 2:56 AM EDT PTT = The equivalent PTT values for the therapeutic range of heparin levels at 0.3 to 0.5 U/ml are 60 to 70 seconds. Maru Whipple Juan DISINTEGRATOR OPERATOR LAB BLOOD ORDERABLES Final Result Performing Organization Address [facility] Co de Phone Number [facility]
[address] [place] [address], * Calcium, Ionized (01/26/2025 2:09 AM EDT) Ionized Calcium 1.15 1.15 - 1.30 mmol/L 01/26/2025 2:22 AM EDT [facility] Blood Line / Unknown 01/26/2025 2: 09 AM EDT 01/26/2025 2:20 AM EDT Maru Martinez APRN LAB BLOOD ORDERABLES Final Result [facility]
[address] [place] [address], [place] [phone] * Blood Culture - Blood, Blood, Port (01/26/2025 2:00 AM EDT) Blood Culture No growth at 5 days 02/04/2025 12:48 PM EST [facility] Blood (Blood, Port) Port / Unknown 01/26/2025 2:00 AM EDT 01/26/2025 3:10 AM EDT Maru Martinez APRN MICROBIOLOGY - GENERAL ORD ERABLES Edited Result - Final Performing Organization Address City/[facility]/ZIP Co de Phone Number [facility]
[address] [place] [address], [place] [phone] * Blood Culture - Blood, Arm, Right (01/26/2025 2:00 AM EDT) Blood Culture No growth at 5 days 02/04/2025 12:48 PM EST [facility] Blood Structure of right upper limb / Unknown Venipuncture / Unknown 01/26/2025 2:00 AM EDT 01/26/2025 3:09 AM EDT Maru Martinez APRN MICROBIOLOGY - GENERAL ORD ERABLES Edited Result - Final [facility]
[address] [place] [address], [place] [phone] * CT Angiogram Head w AI Analysis [...] MD 01/26/2025 1:54 AM EDT Workstation ID: [id number] Narrative 01/26/2025 1:[address] ANGIOGRAM [...] MD 01/26/2025 1:54 AM EDT Workstation ID: [id number] Maru Martinez APRN IMG CT ORDERABLES Final [...] MD 01/26/2025 1:54 AM EDT Workstation ID: [id number] Narrative 01/26/2025 1:[address] ANGIOGRAM [...] MD 01/26/2025 1:54 AM EDT Workstation ID: [id number] Maru Martinez APRN IMG CT ORDERABLES Final Re sult * CT Head Without Contrast (01/26/2025 1:31 AM EDT) Anatomical Region Laterality Modality Head N/A Computed Tomogra phy 01/26/2025 1:45 AM EDT Impressions 01/26/2025 1:46 AM EDT Impression: No acute intracranial abnormality. Electronically Signed: Jesus Peterson MD 01/26/2025 1:46 AM EDT Workstation ID: [id number] Narrative 01/26/2025 1:[address] HEAD [...] MD 01/26/2025 1:46 AM EDT Workstation ID: [id number] Maru Martinez DISINTEGRATOR OPERATOR IMG CT ORDERABLES Final Re sult * LABS SCANNED (01/26/2025) Result [facility] LAB BLOOD ORDERABLES Final Re sult * IMAGING SCANNED (01/26/2025) Anatomical Region Laterality Modality Radiographic Tammy ging [facility] IMG DIAGNOSTIC IMAGING ORDERA BLES Final Result * IMAGING SCANNED (01/26/2025) Anatomical Region Laterality Modality Radiographic Tammy ging Result [facility] IMG DIAGNOSTIC IMAGING ORDERA BLES Final Result * IMAGING SCANNED (01/26/2025) Anatomical Region Laterality Modality Radiographic [facility] ging [facility] Final Result * IMAGING SCANNED (01/26/2025) Anatomical Region Laterality Modality Radiographic Tammy ging Result [facility] DIAGNOSTIC IMAGING ORDERA BLES Final Result * IMAGING SCANNED (01/26/2025) Anatomical Region Laterality Modality Radiographic Tammy ging [facility] ORDERA BLES Final Result * IMAGING SCANNED (01/26/2025) Anatomical Region Laterality Modality Radiographic Tammy ging [facility] ORDERA BLES Final Result * IMAGING SCANNED (01/26/2025) Anatomical Region Laterality Modality Radiographic Tammy ging [facility] ORDERA BLES Final Result * [...] BPA Driven Protocol Open Order & Select [facility] Electrolyte Replacement Protocol Algorithm to View Details [...] Nervous System InfectionIndications:Central Nervous System Infection [facility] 01/26/2025 2:33 AM EDT 1,000 [...] tablet 25 mcg 25 mcg, Oral, Every Tea Taster, First dose (after last modification) on Sun01/27/25 [...] with warm soapy water or use hand pipe fitter helper. 3. Open the tube of mupirocin 2%. [...] BPA Driven Protocol Open Order & [facility] Electrolyte Replacement Protocol Algorithm to View Details [...] BPA Driven Protocol Open Order & Select [facility] Electrolyte Replacement Protocol Algorithm to View Details [...] 0832 (Given - Provider: Mary Valdez RN Application Specialist) amitriptyline (ELAVIL) tablet 50 mg 50 mg, [...] 0833 (Given - Provider: Mary Valdez RN Application Specialist) amLODIPine (NORVASC) tablet 5 mg (CANCELED) 5 [...] 0832 (Given - Provider: Mary Valdez, SPENCER Application Specialist) cefTRIAXone (ROCEPHIN) 2,000 mg in sodium chloride [...] 0832 (Given - Provider: Mary Valdez RN Application Specialist) DULoxetine (CYMBALTA) DR capsule 120 mg 120 [...] 0832 (Given - Provider: Mary Valdez RN Application Specialist) enoxaparin sodium (LOVENOX) syringe 40 mg 40 mg, Subcutaneous, Daily, First dose on Sun01/27/25 at 1900, Give subcutaneous in abdomen only. Do not massage site after injection., Indications: VTE Prophylaxis 2017 (Given - Provider: Mar Soriano RN) 0904 (Given - Provider: Rossy Singh RN) 0831 (Given - Provider: Mary Valdez RN Application Specialist) Gadopiclenol (VUEWAY) injection 7.5 mL (COMPLETED) 7.5 [...] 0832 (Given - Provider: Mary Valdez RN Application Specialist) levothyroxine (SYNTHROID, LEVOTHROID) tablet 25 mcg 25 mcg, Oral, Every Tea Taster, First dose (after last modification) on Sun01/27/25 [...] (Not Given - Provider: Mary Valdez RN Application Specialist - Reason: Patient not available) losartan (COZAAR) [...] 0832 (Given - Provider: Mary Valdez RN Application Specialist) mupirocin (BACTROBAN) 2 % nasal ointment 1 [...] with warm soapy water or use hand pipe fitter helper. 3. Open the tube of mupirocin 2%. [...] together and massage gently for 60 seconds. ([facility]) 0837 (Given - Provider: Lainey Zaman RN)2018 (Given - Provider: Mar Soriano RN) 0904 (Given - Provider: Rossy Singh RN)2115 (Given - Provider: Mary Wu RN) 0832 (Given - Provider: Mary Valdez RN Application Specialist) potassium chloride (KLOR-CON M20) CR tablet 40 [...] 0835 (Given - Provider: Mary Valdez RN Application Specialist) sodium chloride 0.9 % flush 10 mL [...] RN)1334 (Given - Provider: Mary Valdez RN Application Specialist) Phosphorus Replacement - Follow Nurse / BPA Driven Protocol Open Order & [facility] Electrolyte Replacement Protocol Algorithm to View Details [...] BPA Driven Protocol Open Order & [facility] Electrolyte Replacement Protocol Algorithm to View Details [...] 0835 (Given - Provider: Mary Valdez RN Application Specialist) sodium chloride 0.9 % flush 10 mL [...] documented as of this encounter Care Teams Ict Sales Representative Relationship Specialty Start Date End Date Connor Gomez MD [address] [place] [address] PCP - General Family Medicine 01/26/25 documented as of this encounter
[2025-02-05 00:18] VITALS: BP 205/92; PULSE 105; RESP 20; TEMP 37.2; O2SAT 99; BMI 29.2
[2025-02-05 00:28] VITALS: BP 197/98; PULSE 105; RESP 12; O2SAT 99
--- OUTSIDE RECORDS SUMMARY | 2025-02-05 00:29 | XMS_ITS | Encounter Summary ---
Author Organization Healthcare Address [address] [place] [address] Care Team Providers Care [employer] Power[employer] Mechanic Helper Name Role Phone GabrielTimothy armenta Primary Care Provider [phone] Encounter Details Date Type Department Care Team (Late st Contact Info) Description 01/07/2025 Orders Only [facility] [address] [place] [id number] Shantal Solorio TIP (acute kidney injury) (Primary [...] place to sleep or slept in a alf (including now)? Patient refused 07/23/2023 CAGE ASSESSMENT [...] drink first t mini in the morning (EYE-SCIENTIFIC INFORMATICS ANALYST) to steady your nerves or to get rid of a hangover? 0 11/15/2023 CAGE Questionnaire Score 0 024 Utilities Answer Date Recorded In the past 12 months has th e [employer], gas, oil, or water company threatened to [...] Description 07/20/2025 10:40 AM EDT Office Visit [facility] Metabolism [address], [address] [place] [address] Gutierrez Domínguez MD [address] [place] [address] Scheduled Orders Name Type Priority Associated Diagnoses Orde r Schedule Renal Function Panel, Plasma Lab Routine TIP (acute kidney injury) ([facility]) Expected: 01/07/2025 (Approximate), Expires: 07/08/2026 CBC and Differential Lab Routine TIP (acute kidney injury) ([facility]) Expected: 01/07/2025 (Approximate), Expires: 07/08/2026 Creatinine, Random, Urine Lab Routine TIP (acute kidney injury) ([facility]) Expected: 01/07/2025 (Approximate), Expires: 07/08/2026 Protein, Random, Urine with Creatinine Lab Routine TIP (acute kidney injury) ([facility]) Expected: 01/07/2025 (Approximate), Expires: 07/08/2026 Urinalysis with reflex microscopic (Culture NOT Included) Lab Routine TIP (acute kidney injury) ([facility]) Expected: 01/07/2025 (Approximate), Expires: 07/08/2026 PTH Intact Total Lab Routine TIP (acute kidney injury) ([facility]) Vitamin D insufficiency Expected: 01/07/2025 (Approximate), Expires: 07/08/2026 Vitamin D 25 Hydroxy Lab Routine TIP (acute kidney injury) ([facility]) Vitamin D insufficiency Expected: 01/07/2025 (Approximate), Expires: [...] documented as of this encounter Care Teams [employer] Mechanic Helper Relationship Specialty Start Date End Date Timothy Granda DO [address] [place] [address] PCP - General 05/25/23 documented as of this encounter
--- OUTSIDE RECORDS SUMMARY | 2025-02-05 00:29 | XMS_ITS | Clinical Summary ---
Author Organization [facility] Address [address] [place] [address] Phone Care Team Providers Care Automatic Mold Sander Name Role Phone Unavailable Unavailable Conditions or Problems No information available. Medications No information available. Medications Administered No information available. Allergies, Adverse Reactions, Alerts No information available. Results No information available. Plan of Care No information available. Procedures No information available. Vital Signs No information available. Immunizations No information available. Advance Directives No information available.
--- OUTSIDE RECORDS SUMMARY | 2025-02-05 00:30 | XMS_ITS | Encounter Summary ---
Author Organization [facility] Address [address] [place] [address] Care Team Providers Care Author'S Agent Name Role Phone Connor Gomez MD Primary Care Provider [phone] Encounter Details Date Type Department Care Team (Latest Contact Info) Description 01/26/2025 Travel Social History Tobacco Use Types Packs/Day Years Used Date Smoking Tobacco: Former Cigarettes 0.5 5 0 04/02/2004 - 04/02/2009 Smokeless Tobacco: Never Alcohol Use Standard Drinks/Week [...] and heating? Patient unable to answer 01/26/2025 [facility] [place] [facility] - Occupational Stress [...] things needed for daily living? No 01/26/2025 [facility] Utilities Answer Date Recorded In the past 12 months has th e [employer], gas, oil, or water company threatened to [...] Patient unable to answer 01/26/2025 Preferred Language Hungarian 01/26/2025 Comments No Sex and Gender Information [...] documented as of this encounter Care Teams Author'S Agent Relationship Specialty Start Date End Date Connor Gomez MD [address] [place] [address] PCP - General Family Medicine 01/26/25 documented as of this encounter
--- OUTSIDE RECORDS SUMMARY | 2025-02-05 00:30 | XMS_ITS | Clinical Summary ---
Author Organization [facility] Address [address] [place] [address] Care Team Providers Care Disability Insurance Hearing Officer Name Role Phone Connor Gomez MD Primary Care Provider [phone] Allergies Active Allergy Reactions Criticality Noted Date Comments Nsaids GI Intolerance 01/26/2025 Quinolones Other (See Comments) 07/18/2018 Fluoroquinolones- knee tendon, extreme pain and risk of rupture. Medications furosemide (LASIX) 40 MG tablet TAKE ONE TABLET BY MOUTH EVERY DAY 30 tablet 11 Active Additional Information Patient taking differently: 40 mg Oral Daily PRN, edema, Informant: Pharmacy, Reported on 01/26/2025 DULoxetine (CYMBALTA) 60 MG capsule Take 1 capsule by mouth Daily. Active amLODIPine (NORVASC) 10 MG tablet TAKE 1 TABLET BY MOUTH ONCE DAILY 60 tablet 11 Active Additional Information Patient taking differently: 5 mg Oral Every Night at Bedtime, Informant: Pharmacy, Reported on 01/26/2025 diphenoxylate-atropine (LOMOTIL) 2.5-0.025 MG per tabletIndications:Irrit able bowel syndrome with diarrhea Take 1 tablet by mouth 4 (Four) Times a Day As Needed for Diarrhea. 240 tablet 2 Active Additional Information Patient taking differently:1 tablet Oral3 Times Daily, Informant: Pharmacy, Reported on 01/26/2025 Fluticasone-Salmeterol (ADVAIR/WIXELA) 250-50 MCG/ACT DISKUS Inhale 1 puff 2 (Two) Times a Day. 60 each 5 Active atorvastatin (LIPITOR) 20 MG tabletIndications:Pure hypercholesterolemia Take 1 tablet by mouth Daily. 90 tablet 1 Active Additional Information Patient taking differently: 40 mgOral Daily, Informant: Pharmacy, Reported on 01/26/2025 amitriptyline (ELAVIL) 50 MG tablet Take 1 tablet by mouth Every Night. Active ARIPiprazole (ABILIFY) 2 MG tablet Take 1 tablet by mouth Daily. Active vitamin D (ERGOCALCIFEROL) 1.25 MG (37234 UT) capsule capsule Take 1 capsule by mouth 1 (One) Time Per Week. Active ciclopirox (LOPROX) 0.77 % suspension Apply 1 Application topically to the appropriate area as directed Every 12 (Twelve) Hours. Apply daily to affected toenail Active dicyclomine (BENTYL) 10 MG capsule Take 1 capsule by mouth 3 (Three) Times a Day As Needed for Abdominal Cramping. Active tiZANidine (ZANAFLEX) 4 MG tablet Take 1 tablet by mouth Every 8 (Eight) Hours As Needed for Muscle Spasms. Active estradiol 0.25 MG/0.25GM gel Place 1 Application on the skin as directed by provider Daily. Active tretinoin (VESANOID) 10 MG chemo capsule Take by mouth 2 (Two) Times a Day. Active tretinoin (RETIN-A) 0.05 % cream Apply 1 Application topically to the appropriate area as directed Every Night. Active HYDROmorphone (DILAUDID) 4 MG tablet Take 1 tablet by mouth Every 4 (Four) Hours As Needed for Moderate Pain. Active oxyCODONE (OXY-IR) 5 MG capsule Take 1 capsule by mouth Every 4 (Four) Hours As Needed for Moderate Pain. Active levothyroxine (SYNTHROID, LEVOTHROID) 25 MCG tablet Take 1 tablet by mouth Every Morning. Active cloNIDine (CATAPRES) 0.1 MG tablet Take 1 tablet by mouth Every 12 (Twelve) Hours. 60 tablet 2024 Active losartan (COZAAR) 50 MG tablet Take 2 tablets by mouth Daily. 60 tablet 2024 Active levETIRAcetam (KEPPRA) 500 MG tablet Take 1 tablet by mouth Every 12 (Twelve) Hours. 60 tablet 2024 Active cloNIDine (CATAPRES) 0.1 MG tablet Take 1 tablet by mouth 2 (Two) Times a Day As Needed (anxiety). 022 2024 Disconti nued(Sto p Taking at Discharg e) losartan (COZAAR) 50 MG tablet Take 1 tablet by mouth Every Night. 023 2024 Disconti nued(*Er ror) losartan (COZAAR) 25 MG tablet Take 1 tablet by mouth Every Morning Before Breakfast. 023 2024 Disconti nued(Sto p Taking at Discharg e) acyclovir (ZOVIRAX) 400 MG tablet TAKE 1 TABLET BY MOUTH 2 (TWO) TIMES A DAY. 60 tablet 4 023 2024 Disconti nued(*Th erapy complete d) potassium chloride (K-DUR,KLOR-CON) 20 MEQ CR tablet TAKE 1 TABLET BY MOUTH TWICE DAILY WITH FOOD 60 tablet 4 023 2024 Disconti nued(*Th erapy complete d) sulfamethoxazole-trimet hoprim (BACTRIM,SEPTRA) 400-80 MG tablet Take 1 tablet by mouth Daily. 2024 Disconti nued(Sto p Taking at Discharg e) sulfamethoxazole-trimet hoprim (BACTRIM DS,SEPTRA DS) 800-160 MG per tablet Take 1 tablet by mouth Daily. 2024 Disconti nued(Sto p Taking at Discharg e) Active Problems Problem Noted Date Diagnosed Date PRES (posterior reversible encephalopathy syndro me) 01/27/2025 S/P hip replacement, left 03/13/2022 S/P total knee replacement, right 03/13/2022 Chronic pain syndrome 03/13/2022 Assessment & Plan (03/13/2022 2:56 PM EST): Suspect opiate induced hyperalgesia. Plan will be to wait until joint replacement surgeries have been completed and then wean opiates. Patient may need Pain Management referral. Discontinue Peel and use oxycodone 10mg q6h prn. Discussed with patient will not increase this medicine snf prescription opiate use 03/13/2022 Chronic arthritis associated [...] regular appointment. Irritable bowel syndrome with diarrhea S/p bilateral shoulder joint replacement 019 Right shoulder pain 07/18/2018 Hyperlipidemia 07/18/2018 Assessment & Plan (03/13/2022 2:54 PM EST): Lipid abnormalities are improving with treatment. Pharmacotherapy as ordered. Lipids will be reassessed in 6 months. Resolved Problems Problem Noted Date Diagnosed Date Resolved Date SAH (subarachnoid hemorrhage) 01/26/2025 01/27/2025 Hyponatremia, mild 07/19/2018 Leukocytosis, mild, likely reactive 07/19/2018 12/15/2021 Acute blood loss anemia, mild, asymptomatic 07/19/2018 12/15/2021 Acute postoperative pain 07/19/201803/2022 Encounters Date Type Department Care Team Description 01/29/2025 Readmission Management [facility] [address] [place] [address] Jamila Shaikh, RN 01/27/2025 Travel 01/26/2025 1:09 AM EDT - 01/29/2025 2:01 PM EDT Hospital Encounter [address] [place] [address] Rayshawn Baldwin MD Mueller, MD David Pendleton, MD Bonifacio Branham, Jessica Allen, Cognitive communication deficit (Primary Dx); PRES (posterior reversible encephalopathy syndrome); Irritable bowel syndrome with diarrhea Discharge Disposition: Home or Self Care 01/26/2025 Travel from Last 3 Months Immunizations Immunization Administration Dates Next Due COVID-19 [...] and radiation. Anxiety disorder Maternal Grandmother Kathy Troy C hild abuser. Cancer Mother Kathy Troy, and [...] and heating? Patient unable to answer 01/26/2025 [facility] [place] [facility] Occupat ional Health - Occupational Stress [...] things needed for daily living? No 01/26/2025 [facility] Utilities Answer Date Recorded In the past 12 months has [facility] electric, gas, oil, or water company threatened [...] Patient unable to answer 01/26/2025 Preferred Language Ugandan 01/26/2025 Comments No Sex and Gender Information [...] Mass Index 31.68 01/26/2025 11:26 AM EDT Plan of Treatment Health Maintenance Due Date Last Done Comments DXA SCAN 1950 TDAP/TD VACCINES (1 - Tdap) 09/26/1970 COLOGUARD 09/26/1996 CT COLONOGRAPHY 09/26/1996 FECAL OCCULT BLOOD TEST 09/26/1996 FIT Testing (1 year) 09/26/1996 ZOSTER VACCINE (1 of 2) 09/26/2001 ANNUAL WELLNESS VISIT 03/13/2023 03/13/2022, 022 COVID-19 Vaccine ( season) 2024 02/20/2024, 02/09/2023, 01/25/2022, Additional history exists MAMMOGRAM 02/28/2025 02/28/2023, 02/01, 02/23/2023, Additional history exists LIPID PANEL 01/26/2026 01/26/2025, 06/01, 03/13/2022, Additional history exists COLON CANCER SCREENING 5 YEAR SIGMOIDOSCOPY 02/22/2028 02/21/2023, 02/21/2023 COLONOSCOPY 08/08/2032 08/08/2022, 12/2022, 08/07/2022, Additional history exists COLORECTAL CANCER SCREENING 08/08/2032 HEPATITIS C SCREENING Completed 08/02/2023 , 12/15/2021, 12/15/2021, Additional history exists INFLUENZA VACCINE Completed 01/15/2025, , 02/09/2023, Additional history exists Pneumococcal Vaccine 50+ Completed 01/15/2025, 01/31 HEMOGLOBIN A1C Discontinued 01/26/2025, 07/02, 06/22/2022, Additional history exists Hepatitis B Aged Out No longer eligi ble based on patient's age to complete this topic Medical Devices Implanted Type Area Cable Way Operator Device Identifier Shelf Expiration Date Model / Serial / Lot Cmt Bone Simplex/P Full Dose 10/Pk - [id number] Implanted:Qty : 1 on 07/18/2018 by Bautista Luis MD at [facility] Implant Right: Shoulder TRACY RUBEN 09/29/2020 [id number] / / [id number] Stem Hum [employer] [place] 6x60mm - [id number] Implanted:Qty : 1 on 07/18/2018 by Bautista Luis MD at [facility] Implant Right: Shoulder ARTHREX 08/30/2022 [id number] / / [id number] Alberto Vaultlock - [id number] Implanted:Qty : 1 on 07/18/2018 by Bautista Luis MD at [facility] Implant Right: Shoulder ARTHREX 12/30/2022 [id number] / / [id number] Hd Hum Univers2 Cocr 49j03br - [id number] Implanted:Qty : 1 on 07/18/2018 by Bautista Luis MD at [facility] Implant Right: Shoulder ARTHREX 03/01/2022 [id number] / / [id number] Sut Tw 2/0 38in Wht/Blk - [id number] Implanted:Qty : 3 on 07/18/2018 by Bautista Luis MD at [facility] Implant Right: Shoulder ARTHREX [id number] / / Totl Arth Shldr S3 - [id number] Implanted:Qty : 1 on 07/18/2018 by Bautista Luis MD at [facility] Implant Right: Shoulder ARTHREX CAPTOTLSHLD [id number] / / Procedures Procedure Name Priority Date/Time Associated Diagnosis Comments SCANNED - TELEMETRY 01/29/2025 2 :57 AM EDT POTASSIUM Timed 01/28/2025 9:51 PM EDT CBC (NO DIFF) Routine 01/28/2025 10:34 AM EDT BASIC METABOLIC PANEL Routine 01/28/2025 10:34 AM EDT SCANNED - TELEMETRY 01/28/2025 8 :20 AM EDT POTASSIUM Timed 01/27/2025 6:45 PM EDT BASIC METABOLIC PANEL Routine 01/27/2025 4:54 AM EDT CBC (NO DIFF) Routine 01/27/2025 4:54 AM EDT MRI BRAIN W CONTRAST Routine 01/27/2025 1:28 AM EDT POCT GLUCOSE FINGERSTICK Routine 01/26/2025 5:38 PM EDT POCT GLUCOSE FINGERSTICK Routine 01/26/2025 12:19 PM EDT ECHO COMPLETE W/ DOPPLER AND COLOR FLOW Routine 01/26/2025 11:26 AM EDT LACTIC ACID, REFLEX STAT 01/26/2025 1 0:44 AM EDT LACTIC ACID, REFLEX STAT 01/26/2025 6 :51 AM EDT VANCOMYCIN, RANDOM Routine 01/26/2025 6: 51 AM EDT HEMOGLOBIN A1C Routine 01/26/2025 6:51 AM EDT WOUND OSTOMY EVAL AND TREAT [...] MICROSCOPIC ONLY STAT 01/26/2025 2:57 AM EDT FENTANYL, URINE STAT 01/26/2025 2:57 AM EDT URINE DRUG SCREEN STAT 01/26/2025 2:5 7 AM EDT URINALYSIS W/ MICROSCOPIC IF INDICATED (NO CULTURE) STAT 01/26/2025 2:57 AM EDT POCT GLUCOSE FINGERSTICK Routine 01/26/2025 2:38 AM EDT CBC AND DIFFERENTIAL STAT 01/26/2025 2:09 AM EDT LASC SLIDE CREATION STAT 01/26/2025 2 :09 AM EDT CBC WITH AUTO DIFFERENTIAL STAT 01/26/2025 2:09 AM EDT MANUAL DIFFERENTIAL STAT 01/26/2025 2 :09 AM EDT TSH RFX ON ABNORMAL TO FREE T4 STAT 01/26/2025 2:09 AM EDT TROPONIN STAT 01/26/2025 2:09 AM EDT PROTIME-INR STAT 01/26/2025 2:09 AM EDT PROCALCITONIN STAT 01/26/2025 2:09 AM EDT PHOSPHORUS STAT 01/26/2025 2:09 AM EDT MAGNESIUM STAT 01/26/2025 2:09 AM EDT LIPID PANEL STAT 01/26/2025 2:09 AM EDT LIPASE STAT 01/26/2025 2:09 AM EDT LACTIC ACID, PLASMA STAT 01/26/2025 2 :09 AM EDT COMPREHENSIVE METABOLIC PANEL STAT 01/26/2025 2:09 AM EDT CK STAT 01/26/2025 2:09 AM EDT APTT STAT 01/26/2025 2:09 AM EDT CALCIUM, IONIZED STAT 01/26/2025 2:09 AM EDT BLOOD CULTURE STAT 01/26/2025 2:00 AM EDT BLOOD CULTURE STAT 01/26/2025 2:[address] ANGIOGRAM HEAD W AI ANALYSIS OF LVO STAT 01/26/2025 1:[address] ANGIOGRAM NECK STAT 01/26/2025 1:[address] HEAD WO CONTRAST STAT 01/26/2025 1 :31 AM EDT SCANNED - LABS 01/26/2025 SCANNED - IMAGING 01/26/2025 SCANNED - IMAGING 01/26/2025 SCANNED - IMAGING 01/26/2025 SCANNED - IMAGING 01/26/2025 SCANNED - IMAGING 01/26/2025 SCANNED - IMAGING 01/26/2025 SCANNED - IMAGING 01/26/2025 CT OUTSIDE HEAD Routine 01/25/2025 12:[address] OUTSIDE SPINE Routine 01/25/2025 12:[address] OUTSIDE SPINE Routine 01/25/2025 12:[address] OUTSIDE SPINE Routine 01/25/2025 12:[address] OUTSIDE ABD/PELVIS Routine 01/25/2025 12:[address] OUTSIDE ABD/PELVIS Routine 01/25/2025 12:[address] OUTSIDE CHEST Routine 01/25/2025 12:0 0 AM EDT HEPATITIS C GENOTYPE Routine 12/15/2021 11:55 AM EDT Polyarthralgia Chronic hepatitis C without hepatic coma SCANNED - MAMMO 08/23/2021 from Last 3 Months or Most Recently Relevant to Health Maintenance Results * Telemetry Scan (01/29/2025 2:57 AM EDT) Only the most recent of2 resultswithin the time period is included. [facility] Onbase ECG ORDERABLES Final Result * Potassium (01/28/2025 9:51 PM EDT) Only the most recent of2 resultswithin the time period is included. Potassium 3.8 3.5 - 5.2 mmol/L 01/28/2025 10:10 PM EDT [facility] Blood Venipuncture / Unknown 01/28/2025 9:51 PM EDT 01/28/2025 9:57 PM EDT Jessica Valdovinos DO LAB BLOOD ORDERABLES F inal Result [facility]
[address] [place] [address], * (ABNORMAL) CBC (No Diff) (01/28/2025 10:34 AM EDT) Only the most recent of2 resultswithin the time period is included. WBC 12.20(H) 3.40 - 10.80 10*3/mm3 01/28/2025 11:45 AM EDT [facility] RBC 3.86 3.77 - 5.28 10*6/mm3 01/28/2025 11:45 AM EDT [facility] Hemoglobin 11.6(L) 12.0 - 15.9 g/dL 01/28/2025 11:45 AM EDT [facility] Hematocrit 35.5 34.0 - 46.6 % 01/28/2025 11:45 AM EDT [facility] MCV 92.0 79.0 - 97.0 fL 01/28/2025 11:45 AM EDT [facility] MCH 30.1 26.6 - 33.0 pg 01/28/2025 11:45 AM EDT [facility] MCHC 32.7 31.5 - 35.7 g/dL 01/28/2025 11:45 AM EDT [facility] RDW 13.5 12.3 - 15.4 % 01/28/2025 11:45 AM EDT [facility] RDW-SD 46.2 37.0 - 54.0 fl 01/28/2025 11:45 AM EDT [facility] MPV 9.6 6.0 - 12.0 fL 01/28/2025 11:45 AM EDT [facility] Platelets 301 140 - 450 10*3/mm3 01/28/2025 11:45 AM EDT [facility] Blood Venipuncture / Unknown 01/28/2025 10:34 AM EDT 01/28/2025 11:41 AM EDT Andrew Barkley MD LAB BLOOD ORDERABLES Final R esult [facility]
[address] [place] [address], * (ABNORMAL) Basic Metabolic Panel (01/28/2025 10:34 AM EDT) Only the most recent of2 resultswithin the time period is included. Glucose 117(H) 65 - 99 mg/dL 01/28/2025 12:14 PM EDT [facility] BUN 6.4(L) 8.0 - 23.0 mg/dL 01/28/2025 12:14 PM EDT [facility] Creatinine 0.85 0.57 - 1.00 mg/dL 01/28/2025 12:14 PM EDT [facility] Sodium 139 136 - 145 mmol/L 01/28/2025 12:14 PM EDT [facility] Potassium 3.3(L) 3.5 - 5.2 mmol/L 01/28/2025 12:14 PM EDT [facility] Chloride 103 98 - 107 mmol/L 01/28/2025 12:14 PM EDT [facility] CO2 20.6(L) 22.0 - 29.0 mmol/L 01/28/2025 12:14 PM EDT [facility] Calcium 8.8 8.6 - 10.5 mg/dL 01/28/2025 12:14 PM EDT [facility] BUN/Creatinine Ratio 7.5 7.0 - 25.0 01/28/2025 12:14 PM EDT [facility] Anion Gap 15.4(H) 5.0 - 15.0 mmol/L 01/28/2025 12:14 PM EDT [facility] eGFR 72.4 >60.0 mL/min/1.7 3 01/28/2025 12:14 PM EDT [facility] Blood Venipuncture / Unknown 01/28/2025 10:34 AM EDT 01/28/2025 11:41 AM EDT Narrative [facility] - 01/28/2025 12:14 PM EDT [...] MD LAB BLOOD ORDERABLES Final R esult [facility]
[address] [place] [address], * MRI Brain With Contrast (01/27/2025 1:28 AM EDT) Anatomical Region Laterality Modality Head, Neck N/A Magnetic Resonan ce 01/27/2025 2:00 AM EDT Impressions 01/27/2025 2:05 AM EDT Impression: No pathologic contrast enhancement. 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 Electronically Signed: Jesus Peterson MD 01/27/2025 2:05 AM EDT Workstation ID: [id number] Narrative 01/27/2025 2:05 AM EDT MRI BRAIN [...] MD 01/27/2025 2:05 AM EDT Workstation ID: [id number] Adama Maher MD IMG MRI ORDERABLES Final Result * POC Glucose Once (01/26/2025 5:38 PM EDT) Only the most recent of4 resultswithin the time period is included. Glucose 91 70 - 130 mg/dL 01/26/2025 5:40 PM EDT [facility] Comment:Serial Number: [id number]: [id number] Amber Comment 1 Follow unit protocol 01/26/2025 5:40 PM EDT [facility] Blood 01/26/2025 5:38 PM EDT 01/26/2025 5:40 PM EDT us Andrew Barkley MD POINT OF CARE TEST ORDERABLE S Final Result [facility]
[address] [place] [address], * ECHO COMPLETE W/ DOPPLER AND COLOR [...] % EF(MOD-sp4) 64.9 % MV E max ish 82.0 cm/sec MV A max ish 95.3 cm/sec MV E/A 0.86 LA ESV Index (BP) 5.9 ml/m2 Med Peak E' Ish 8.2 cm/sec Lat Peak E' Ish 9.2 cm/sec Avg E/e' ratio 9.43 SV(LVOT) 81.7 ml RV Base 3.7 cm RV Mid 2.8 cm RV Length 6.9 cm RV S' 16.5 cm/sec LA dimension (2D) 2.5 cm LV V1 max 121.5 cm/sec LV V1 max PG 5.9 mmHg LV V1 mean PG 3.3 mmHg LV V1 VTI 26.0 cm Ao pk ish 239.2 cm/sec Ao max PG 22.9 mmHg [...] Lactic Acid, Reflex (01/26/2025 10:44 AM EDT) Only the most recent of2 resultswithin the time period is included. Lactate 1.9 0.5 - 2.0 mmol/L 01/26/2025 11:33 AM EDT [facility] Comment:Falsely depressed re sults may occur on samples drawn from patients receiving N-Acetylcysteine (NAC) or Metamizole. Blood Venipuncture / Unknown 01/26/2025 10:44 AM EDT 01/26/2025 11:00 AM EDT Maru Martinez APRN LAB BLOOD ORDERABLES Final Result Performing Organization Address City/[facility]/ZIP Co de Phone Number [facility]
[address] [phone] * (ABNORMAL) Hemoglobin A1c (01/26/2025 6:51 AM EDT) Hemoglobin A1C 5.67(H) 4.80 - 5.60 % 01/26/2025 8:56 AM EDT [facility] Blood Structure of right upper limb / Unknown Venipuncture / Unknown 01/26/2025 6:51 AM EDT 01/26/2025 7:01 AM EDT Narrative [facility] - 01/26/2025 8:56 AM EDT Hemoglobin A1C Ranges: Increased Risk for Diabetes 5.7% to 6.4% Diabetes >= 6.5% Diabetic Goal < 7.0% Rayshawn Hercules PA-C LAB BLOOD ORDERABLE S Final Result Performing Organization Address City/[facility]/ZIP Co de Phone Number [facility]
[address] [place] [address], * (ABNORMAL) Vancomycin, Random (01/26/2025 6:51 AM EDT) Vancomycin Random 42.10(HH) 5.00 - 40.00 mcg/mL 01/26/2025 7:53 AM EDT [facility] Blood Structure of right upper limb / Unknown Venipuncture / Unknown 01/26/2025 6:51 AM EDT 01/26/2025 7:01 AM EDT Narrative [facility] - 01/26/2025 7:53 AM EDT Therapeutic Ranges for Vancomycin Vancomycin Random 5.0-40.0 mcg/mL Vancomycin Trough 5.0-20.0 mcg/mL Vancomycin Peak 20.0-40.0 mcg/mL Aline Tavarez PharmD LAB BLOOD ORDERABLES Final R esult [facility]
[address] [place] [address], * EEG AWAKE OR ASLEEP PORTABLE (01/26/2025 6:30 AM EDT) Impressions NEUROLOGY - 01/26/2025 8:58 AM EDT Diffuse cerebral dysfunction of at least mild degree, nonspecific but most commonly seen due to toxic/metabolic cause No ongoing seizures are present This report is transcribed using the [employer] dictation system. Narrative NEUROLOGY - 01/26/2025 8:58 [...] Hercules PA-C NEUROLOGY ORDERABLE S Final Result [facility] * MRI Brain Without Contrast (01/26/2025 [...] IMG MRI ORDERABLES Final Result * (ABNORMAL) High Sensitivity Troponin T 1Hr (01/26/2025 3:28 AM EDT) Pathologist [facility] HS Troponin T 22(H) <14 ng/L 01/26/2025 3:57 AM EDT [facility] Troponin T Numeric Delta -1 ng/L 01/26/2025 3:57 AM EDT [facility] Troponin T % Delta -4 Abnormal if >/= 20% 01/26/2025 3:57 AM EDT [facility] Blood Line / Unknown 01/26/2025 3: 28 AM EDT 01/26/2025 3:37 AM EDT Narrative [facility] - 01/26/2025 3:57 AM EDT [...] to an underlying chronic condition. Maru Martinez PHOTO TECH LAB BLOOD ORDERABLES Final Result [facility]
[address] [place] [address], * ECG 12 Lead QT Measurement (01/26/2025 3:10 AM EDT) [facility] QT Interval 340 ms ECG QTC Interval [...] No significant change was found Confirmed by DARSHAN KHAN MD ([id number]) on 01/26/2025 8:10:43 AM Referred By: Confirmed By: DARSHAN KHAN MD Procedure Note Darshan Khan MD - 01/26/2025 Test Reason : [...] No significant change was found Confirmed by DARSHAN KHAN MD ([id number]) on 01/26/2025 8:10:43 AM Referred By: Confirmed By: DARSHAN KHAN MD us Maru Martinez PHOTO TECH ECG ORDERABLES Final Resu lt ECG * (ABNORMAL) Urinalysis, Microscopic Only - Indwelling Urethral Catheter (01/26/2025 2:57 AM EDT) RBC, UA 6-10(A) None Seen, 0-2 /HPF 01/26/2025 3:25 AM EDT [facility] WBC, UA 11-20(A) None Seen, 0-2 /HPF 01/26/2025 3:25 AM EDT [facility] Bacteria, UA None Seen None Seen /HPF 01/26/2025 3:25 AM EDT [facility] Squamous Epithelial Cells, UA 0-2 None Seen, 0-2 /HPF 01/26/2025 3:25 AM EDT [facility] Hyaline Casts, UA None Seen None Seen /LPF 01/26/2025 3:25 AM EDT [facility] Methodology Automated Microscopy 01/26/2025 3:25 AM EDT [facility] Urine (Indwelling Urethral Catheter) Collection / Unknown 01/26/2025 2:57 AM EDT 01/26/2025 3:13 AM EDT us Maru Martinez PHOTO TECH URINE ORDERABLES Final Res ult [facility]
[address] [place] [address], [place] [phone] * (ABNORMAL) Urinalysis With Microscopic If Indicated (No Culture) - Indwelling Urethral Catheter (01/26/2025 2:57 AM EDT) Color, UA Yellow Yellow, Straw 01/26/2025 3:25 AM EDT [facility] Appearance, UA Clear Clear 01/26/2025 3:25 AM EDT [facility] pH, UA 5.5 5.0 - 8.0 01/26/2025 3:25 AM EDT [facility] Specific [place], UA >1.030(H) 1.005 - 1.030 01/26/2025 3:25 AM EDT [facility] Glucose, UA Negative Negative 01/26/2025 3:25 AM EDT [facility] Ketones, UA Negative Negative 01/26/2025 3:25 AM EDT [facility] Bilirubin, UA Negative Negative 01/26/2025 3:25 AM EDT [facility] Blood, UA Moderate (2+)(A) Negative 01/26/2025 3:25 AM EDT [facility] Protein, UA Trace(A) Negative 01/26/2025 3:25 AM EDT [facility] Leuk Esterase, UA Small (1+)(A) Negative 01/26/2025 3:25 AM EDT [facility] Nitrite, UA Negative Negative 01/26/2025 3:25 AM EDT [facility] Urobilinogen, UA 0.2 E.U./dL 0.2 - 1.0 E.U./dL 01/26/2025 3:25 AM EDT [facility] Urine (Indwelling Urethral Catheter) Collection / Unknown 01/26/2025 2:57 AM EDT 01/26/2025 3:13 AM EDT us Maru Martinez PHOTO TECH URINE ORDERABLES Final Res ult [facility]
[address] [place] [address], * (ABNORMAL) Urine Drug Screen - Indwelling Urethral Catheter (01/26/2025 2:57 AM EDT) [facility] Signature THC, Screen, Urine Negative Negative 2024 3:27 AM EDT [facility] Phencyclidine (PCP), Urine Negative Negative 01/26/2025 3:27 AM EDT [facility] Cocaine Screen, Urine Negative Negative 01/26/2025 3:27 AM EDT [facility] Methamphetamine, Ur Negative Negative 01/26/2025 3:27 AM EDT [facility] Opiate Screen Negative Negative 01/26/2025 3:27 AM EDT [facility] Amphetamine Screen, Urine Negative Negative 01/26/2025 3:27 AM EDT [facility] Benzodiazepine Screen, Urine Negative Negative 01/26/2025 3:27 AM EDT [facility] Tricyclic Antidepressants Screen Positive(A) Negative 01/26/2025 3:27 AM EDT [facility] Methadone Screen, Urine Negative Negative 01/26/2025 3:27 AM EDT [facility] Barbiturates Screen, Urine Negative Negative 01/26/2025 3:27 AM EDT [facility] Oxycodone Screen, Urine Positive(A) Negative 01/26/2025 3:27 AM EDT [facility] Buprenorphine, Screen, Urine Negative Negative 01/26/2025 3:27 AM EDT [facility] Urine (Indwelling Urethral Catheter) Collection / Unknown 01/26/2025 2:57 AM EDT 01/26/2025 3:13 AM EDT [facility] - 01/26/2025 3:27 AM EDT [...] when unconfirmed results are used. Maru Martinez PHOTO TECH URINE ORDERABLES Final Res ult Performing Organization Address [facility] de Phone Number [facility]
[address] [place] [address], * Fentanyl, Urine - Indwelling Urethral Catheter (01/26/2025 2:57 AM EDT) Fentanyl, Urine Negative Negative 01/26/2025 3:40 AM EDT [facility] Urine (Indwelling Urethral Catheter) Collection / Unknown 01/26/2025 2:57 AM EDT 01/26/2025 3:13 AM EDT [facility] - 01/26/2025 3:40 AM EDT [...] when unconfirmed results are used. Maru Martinez PHOTO TECH URINE ORDERABLES Final Res ult Performing Organization Address [facility] Co de Phone Number [facility]
[address] [place] [address], * LSAC Slide Creation (01/26/2025 2:09 AM EDT) Blood Line / Unknown 01/26/2025 2: 09 AM EDT 01/26/2025 2:20 AM EDT Maru Martinez APRN LAB BLOOD ORDER ONLY Final Result Performing Organization Address City/[facility]/ZIP Co de Phone Number [facility]
[address] [place] [address], * TSH Rfx On Abnormal To Free T4 (01/26/2025 2:09 AM EDT) TSH 1.430 0.270 - 4.200 uIU/mL 01/26/2025 2:50 AM EDT [facility] Blood Line / Unknown 01/26/2025 2: 09 AM EDT 01/26/2025 2:20 AM EDT Maru Martinez APRN LAB BLOOD ORDERABLES Final Result Performing Organization Address City/[facility]/ZIP Co de Phone Number [facility]
[address] [place] [address], * Procalcitonin (01/26/2025 2:09 AM EDT) Procalcitonin 0.15 0.00 - 0.25 ng/mL 01/26/2025 2:50 AM EDT [facility] Blood Line / Unknown 01/26/2025 2: 09 AM EDT 01/26/2025 2:20 AM EDT Narrative [facility] - 01/26/2025 2:50 AM EDT [...] Day 4 values are available. Refer to http://www.hlahkc-jjs-objwvkodmh.com Change in PCT <=80% A decrease of [...] severe sepsis or septic shock. Maru Martinez PHOTO TECH LAB BLOOD ORDERABLES Final Result [facility]
[address] [place] [address], * (ABNORMAL) CBC Auto Differential (01/26/2025 2:09 AM EDT) [facility] Signature WBC 18.88(H) 3.40 - 10.80 10*3/mm3 01/26/2025 2:48 AM EDT [facility] RBC 3.98 3.77 - 5.28 10*6/mm3 01/26/2025 2:48 AM EDT [facility] Hemoglobin 11.6(L) 12.0 - 15.9 g/dL 01/26/2025 2:48 AM EDT [facility] Hematocrit 35.6 34.0 - 46.6 % 01/26/2025 2:48 AM EDT [facility] MCV 89.4 79.0 - 97.0 fL 01/26/2025 2:48 AM EDT [facility] MCH 29.1 26.6 - 33.0 pg 01/26/2025 2:48 AM EDT [facility] MCHC 32.6 31.5 - 35.7 g/dL 01/26/2025 2:48 AM EDT [facility] RDW 13.6 12.3 - 15.4 % 01/26/2025 2:48 AM EDT [facility] RDW-SD 45.1 37.0 - 54.0 fl 01/26/2025 2:48 AM EDT [facility] MPV 9.4 6.0 - 12.0 fL 01/26/2025 2:48 AM EDT [facility] Platelets 411 140 - 450 10*3/mm3 01/26/2025 2:48 AM EDT [facility] Blood Line / Unknown 01/26/2025 2: 09 AM EDT 01/26/2025 2:20 AM EDT Maru Martinez PHOTO TECH LAB BLOOD ORDERABLES Final Result [facility]
[address] [place] [address], * (ABNORMAL) High Sensitivity Troponin T (01/26/2025 2:09 AM EDT) HS Troponin T 23(H) <14 ng/L 01/26/2025 2:50 AM EDT [facility] Blood Line / Unknown 01/26/2025 2: 09 AM EDT 01/26/2025 2:20 AM EDT Narrative [facility] - 01/26/2025 2:50 AM EDT [...] to an underlying chronic condition. Maru Martinez PHOTO TECH LAB BLOOD ORDERABLES Final Result [facility]
[address] [place] [address], * (ABNORMAL) Manual Differential (01/26/2025 2:09 AM EDT) Neutrophil % 81.0(H) 42.7 - 76.0 % 01/26/2025 2:48 AM EDT [facility] Lymphocyte % 9.0(L) 19.6 - 45.3 % 01/26/2025 2:48 AM EDT [facility] Monocyte % 3.0(L) 5.0 - 12.0 % 01/26/2025 2:48 AM EDT [facility] Eosinophil % 0.0(L) 0.3 - 6.2 % 01/26/2025 2:48 AM EDT [facility] Basophil % 0.0 0.0 - 1.5 % 01/26/2025 2:48 AM EDT [facility] Bands % 5.0 0.0 - 5.0 % 01/26/2025 2:48 AM EDT [facility] Atypical Lymphocyte % 2.0 0.0 - 5.0 % 01/26/2025 2:48 AM EDT [facility] Neutrophils Absolute 16.24(H) 1.70 - 7.00 10*3/mm3 01/26/2025 2:48 AM EDT [facility] Lymphocytes Absolute 2.08 0.70 - 3.10 10*3/mm3 01/26/2025 2:48 AM EDT [facility] Monocytes Absolute 0.57 0.10 - 0.90 10*3/mm3 01/26/2025 2:48 AM EDT [facility] Eosinophils Absolute 0.00 0.00 - 0.40 10*3/mm3 01/26/2025 2:48 AM EDT [facility] Basophils Absolute 0.00 0.00 - 0.20 10*3/mm3 01/26/2025 2:48 AM EDT [facility] RBC Morphology Normal Normal 01/26/2025 2:48 AM EDT [facility] WBC Morphology Normal Normal 01/26/2025 2:48 AM EDT [facility] Platelet Morphology Normal Normal 01/26/2025 2:48 AM EDT [facility] Blood Line / Unknown 01/26/2025 2: 09 AM EDT 01/26/2025 2:20 AM EDT Maru Martinez APRN LAB BLOOD ORDERABLES Final Result Performing Organization Address [facility] Co de Phone Number [facility]
[address] [place] [address], * aPTT (01/26/2025 2:09 AM EDT) PTT 26.2 22.0 - 39.0 seconds 01/26/2025 2:56 AM EDT [facility] Blood Line / Unknown 01/26/2025 2: 09 AM EDT 01/26/2025 2:20 AM EDT Narrative [facility] - 01/26/2025 2:56 AM EDT PTT = The equivalent PTT values for the therapeutic range of heparin levels at 0.3 to 0.5 U/ml are 60 to 70 seconds. Maru Martinez APRN LAB BLOOD ORDERABLES Final Result Performing Organization Address City/[facility]/ZIP Co de Phone Number [facility]
[address] [place] [address], * Protime-INR (01/26/2025 2:09 AM EDT) Protime 13.9 12.2 - 15.3 Seconds 01/26/2025 2:56 AM EDT [facility] INR 1.01 0.89 - 1.12 01/26/2025 2:56 AM EDT [facility] Blood Line / Unknown 01/26/2025 2: 09 AM EDT 01/26/2025 2:20 AM EDT Maru R Blamer PHOTO TECH LAB BLOOD ORDERABLES Final Result [facility]
[address] [place] [address], * Phosphorus (01/26/2025 2:09 AM EDT) Phosphorus 3.6 2.5 - 4.5 mg/dL 01/26/2025 2:50 AM EDT [facility] Blood Line / Unknown 01/26/2025 2: 09 AM EDT 01/26/2025 2:20 AM EDT Maru R Nandomer PHOTO TECH LAB BLOOD ORDERABLES Final Result Performing Organization Address City/[facility]/ZIP Co de Phone Number [facility]
[address] [place] [address], [place] [phone] * Magnesium (01/26/2025 2:09 AM EDT) Magnesium 2.1 1.6 - 2.4 mg/dL 01/26/2025 2:50 AM EDT [facility] Blood Line / Unknown 01/26/2025 2: 09 AM EDT 01/26/2025 2:20 AM EDT Maru R Blamer PHOTO TECH LAB BLOOD ORDERABLES Final Result Performing Organization Address City/[facility]/ZIP Co de Phone Number [facility]
[address] [place] [address], [place] [phone] * Lipase (01/26/2025 2:09 AM EDT) Lipase 20 13 - 60 U/L 01/26/2025 2:50 AM EDT [facility] Blood Line / Unknown 01/26/2025 2: 09 AM EDT 01/26/2025 2:20 AM EDT Maru Martinez PHOTO TECH LAB BLOOD ORDERABLES Final Result Performing Organization Address [facility]/ZIP Co de Phone Number [facility]
[address] [place] [address], * (ABNORMAL) Lactic Acid, Plasma (01/26/2025 2:09 AM EDT) Lactate 2.7(HH) 0.5 - 2.0 mmol/L 01/26/2025 2:45 AM EDT [facility] Comment:Falsely depressed re sults may occur on samples drawn from patients receiving N-Acetylcysteine (NAC) or Metamizole. Blood Line / Unknown 01/26/2025 2: 09 AM EDT 01/26/2025 2:20 AM EDT Maru Martinez PHOTO TECH LAB BLOOD ORDERABLES Final Result Performing Organization Address [facility]/ZIP Co de Phone Number [facility]
[address] [place] [address], [place] [phone] * (ABNORMAL) CK (01/26/2025 2:09 AM EDT) Creatine Kinase 206(H) 20 - 180 U/L 01/26/2025 2:50 AM EDT [facility] Blood Line / Unknown 01/26/2025 2: 09 AM EDT 01/26/2025 2:20 AM EDT Maru Martinez PHOTO TECH LAB BLOOD ORDERABLES Final Result Performing Organization Address City/[facility]/ZIP Co de Phone Number [facility]
[address] [place] [address], * Calcium, Ionized (01/26/2025 2:09 AM EDT) Ionized Calcium 1.15 1.15 - 1.30 mmol/L 01/26/2025 2:22 AM EDT [facility] Blood Line / Unknown 01/26/2025 2: 09 AM EDT 01/26/2025 2:20 AM EDT Maru Martinez APRN LAB BLOOD ORDERABLES Final Result Performing Organization Address City/[facility] Co de Phone Number [facility]
[address] [place] [address], * (ABNORMAL) Lipid Panel (01/26/2025 2:09 AM EDT) Total Cholesterol 209(H) 0 - 200 mg/dL 01/26/2025 2:50 AM EDT [facility] Triglycerides 149 0 - 150 mg/dL 01/26/2025 2:50 AM EDT [facility] HDL Cholesterol 70(H) 40 - 60 mg/dL 01/26/2025 2:50 AM EDT [facility] LDL Cholesterol 113(H) 0 - 100 mg/dL 01/26/2025 2:50 AM EDT [facility] VLDL Cholesterol 26 5 - 40 mg/dL 01/26/2025 2:50 AM EDT [facility] LDL/HDL Ratio 1.56 01/26/2025 2:50 AM EDT [facility] Blood Line / Unknown 01/26/2025 2: 09 AM EDT 01/26/2025 2:20 AM EDT Narrative [facility] - 01/26/2025 2:50 AM EDT [...] using the NIH LDL-C calculation. Maru Martinez PHOTO TECH LAB BLOOD ORDERABLES Final Result [facility]
[address] [place] [address], * (ABNORMAL) Comprehensive Metabolic Panel (01/26/2025 2:09 AM EDT) [facility] Signature Glucose 154(H) 65 - 99 mg/dL 01/26/2025 2:50 AM EDT [facility] BUN 20.1 8.0 - 23.0 mg/dL 01/26/2025 2:50 AM EDT [facility] Creatinine 1.30(H) 0.57 - 1.00 mg/dL 01/26/2025 2:50 AM EDT [facility] Sodium 142 136 - 145 mmol/L 01/26/2025 2:50 AM EDT [facility] Potassium 3.9 3.5 - 5.2 mmol/L 01/26/2025 2:50 AM EDT [facility] Chloride 107 98 - 107 mmol/L 01/26/2025 2:50 AM EDT [facility] CO2 21.1(L) 22.0 - 29.0 mmol/L 01/26/2025 2:50 AM EDT [facility] Calcium 9.0 8.6 - 10.5 mg/dL 01/26/2025 2:50 AM EDT [facility] Total Protein 6.9 6.0 - 8.5 g/dL 01/26/2025 2:50 AM EDT [facility] Albumin 4.0 3.5 - 5.2 g/dL 01/26/2025 2:50 AM EDT [facility] ALT (SGPT) 19 1 - 33 U/L 01/26/2025 2:50 AM EDT [facility] AST (SGOT) 30 1 - 32 U/L 01/26/2025 2:50 AM EDT [facility] Alkaline Phosphatase 120(H) 39 - 117 U/L 01/26/2025 2:50 AM EDT [facility] Total Bilirubin 0.4 0.0 - 1.2 mg/dL 01/26/2025 2:50 AM EDT [facility] Globulin 2.9 gm/dL 01/26/2025 2:50 AM T [facility] Comment:Calculated Result A/G Ratio 1.4 g/dL 01/26/2025 2:50 AM [facility] BUN/Creatinine Ratio 15.5 7.0 - 25.0 01/26/2025 2:50 AM T [facility] Anion Gap 13.9 5.0 - 15.0 mmol/L 01/26/2025 2:50 AM [facility] eGFR 43.5(L) >60.0 mL/min/1.7 3 01/26/2025 2:50 AM [facility] Blood Line / Unknown 01/26/2025 2: 09 AM EDT 01/26/2025 2:20 AM EDT [facility] - 01/26/2025 2:50 AM EDT [...] ORDERABLES Final Result Performing Organization Address [facility] Co de Phone Number [facility]
[address] [place] [address], * Blood Culture - Blood, Blood, Port (01/26/2025 2:00 AM EDT) Only the most recent of2 resultswithin the time period is included. Blood Culture No growth at 5 days 02/04/2025 12:48 PM EST [facility] Blood (Blood, Port) Port / Unknown 01/26/2025 2:00 AM EDT 01/26/2025 3:10 AM EDT Maru Martinez APRN MICROBIOLOGY - GENERAL ORD ERABLES Edited Result - Final Performing Organization Address [facility] Co de Phone Number [facility]
[address] [place] [address], * CT Angiogram Head w AI Analysis [...] MD 01/26/2025 1:54 AM EDT Workstation ID: [id number] Narrative 01/26/2025 1:[address] ANGIOGRAM [...] MD 01/26/2025 1:54 AM EDT Workstation ID: [id number] us Maru Martinez PHOTO TECH IMG CT ORDERABLES Final Re sult * [...] MD 01/26/2025 1:54 AM EDT Workstation ID: [id number] Narrative 01/26/2025 1:[address] ANGIOGRAM [...] MD 01/26/2025 1:54 AM EDT Workstation ID: [id number] us Mrau Martinez PHOTO TECH IMG CT ORDERABLES Final Re sult * CT Head Without Contrast (01/26/2025 1:31 AM EDT) Anatomical Region Laterality Modality Head N/A Computed Tomogra phy 01/26/2025 1:45 AM EDT Impressions 01/26/2025 1:46 AM EDT Impression: No acute intracranial abnormality. Electronically Signed: Jesus Peterson MD 01/26/2025 1:46 AM EDT Workstation ID: [id number] Narrative 01/26/2025 1:[address] HEAD [...] MD 01/26/2025 1:46 AM EDT Workstation ID: [id number] Maru Martinez PHOTO TECH IMG CT ORDERABLES Final Re sult * IMAGING SCANNED (01/26/2025) Only the most recent of7 resultswithin the time period is included. Anatomical Region Laterality Modality Radiographic Tammy ging Result [facility]G DIAGNOST[facility] IMAGING ORDERA BLES Final Result * LABS SCANNED (01/26/2025) Result [facility] LAB BLOOD ORDERABLES Final Re sult * CT Outside Head (01/25/2025 12:30 AM EDT) Narrative SYSTEMGENERATED, DOCUMENTATION - 01/26/2025 2:39 AM EDT This procedure was auto-finalized with no dictation required. Radiant Outside Films IMG CT ORDERABLES Final Re sult * CT Outside Spine (01/25/2025 12:25 AM EDT) Only the most recent of3 resultswithin the time period is included. Narrative SYSTEMGENERATED, DOCUMENTATION - 01/26/2025 2:39 AM EDT This procedure was auto-finalized with no dictation required. us Radiant Outside Films IMG CT ORDERABLES Final Re sult * CT Outside Abd/Pelvis (01/25/2025 12:10 AM EDT) Only the most recent of2 resultswithin the time period is included. Narrative SYSTEMGENERATED, DOCUMENTATION - 01/26/2025 2:38 AM EDT This procedure was auto-finalized with no dictation required. us Radiant Outside Films IMG CT ORDERABLES Final Re sult * CT Outside Chest (01/25/2025 12:00 AM EDT) Narrative SYSTEMGENERATED, DOCUMENTATION - 01/26/2025 2:37 AM EDT This procedure was auto-finalized with no dictation required. us Radiant Outside Films IMG CT ORDERABLES Final Re sult * Hepatitis C Genotype (12/15/2021 11:55 AM EDT) Pathologist [facility] Hepatitis C Genotype Comment [facility] Comment: Specimen has insufficient hepatitis C virus RNA to obtain genotyping results. This genotyping assay should only be used for known HCV positive patients with HCV RNA levels above 1000 IU/mL. Please note Comment [facility] Comment: This test was developed and its performance characteristics determined by [facility]. It has not been cleared or approved by the U.S. Food and Drug Administration. The FDA has determined that such clearance or approval is not necessary. This test is used for clinical purposes. It should not be regarded as investigational or for research. Blood 12/15/2021 11:5 5 AM EDT 12/16/2021 Narrative [facility] ([facility]) - 12/21/2021 8:08 PM EDT Performed at: [address] [place] [address] [id number] Performance Architect: Genna Davenport MD, Phone: [phone] Patient Fasting: Y Connor Nunez MD LAB BLOOD ORDERABLES Fin al Result [facility] ([facility]) [address] [place] [address], [place] [phone] [facility] [address] [place] [address], [place] [phone] * SCANNED - MAMMO (08/23/2021) Anatomical Region Laterality Modality Other Connor Nunez MD CHART REVIEW TABS Fin al Result from Last 3 Months or Most Recently Relevant to Health Maintenance Insurance MEDICARE A & B Member Subscriber Plan / Payer (Ef fective 2013-Present) Name:Farrah Atkinson Member ID:[id number] Relation to Subscriber:Self Name:Farrah Atkinson Subscriber ID:[id number] Payer ID:[id number] Group ID:Not on file Type:Not on file Address: [facility] [id number] MEDICARE SUPPLEMENT Advance Directives * CPR (Attempt to Resuscitate) (Latest Code Status on File) Date Activated Date Inactivated Comments 01/26/2025 3:08 AM 01/29/2025 4:11 PM Question Answer Comments Code Status (Patient has no pulse and is not breathing): CPR (Attempt to Resuscitate) Medical Interventions (Patie nt has pulse or is breathing): Full Support * CPR (Attempt to Resuscitate) Date Activated Date Inactivated Comments 07/18/2018 6:35 PM 07/19/2018 6:14 PM Question Answer Comments Code Status (Patient has no pulse and is not breathing): CPR (Attempt to Resuscitate) Medical Interventions (Patie nt has pulse or is breathing): Full Level Of Support Discussed With: Patient Care Teams Disability Insurance Hearing Officer Relationship Specialty Start Date End Date Connor Gomez MD [address] [place] [address] PCP - General Family Medicine 01/26/25
--- OUTSIDE RECORDS SUMMARY | 2025-02-05 00:30 | XMS_ITS | Encounter Summary ---
Author Organization [facility] Address [address] [place] [address] Care Team Providers Care Agricultural Technical Officer Name Role Phone Connor Gomez MD Primary Care Provider [phone] Encounter Details Date Type Department Care Team (Latest Contact Info) Description 01/27/2025 Travel Social History Tobacco Use Types Packs/Day [...] and heating? Patient unable to answer 01/26/2025 [facility] [place] [facility] - Occupational Stress [...] for daily living? No 01/26/2025 [facility] Utilities Answer Date Recorded In the past 12 months has th e [employer], gas, oil, or water company threatened to [...] Patient unable to answer 01/26/2025 Preferred Language Ivorian 01/26/2025 Comments No Sex and Gender Information Value Date Recorded Sex Assigned at Not on file Legal Sex Female 10:14 AM EST Gender Identity Not on file Sexual Orientation Not on file documented as of this encounter Functional Status * Question Answer Date of Assessment Author 1. Wish to be (Past 1 Month) No 025 6:19 AM EDT Minnie Castillo RN 2. Non-Specific Active Suici charles Thoughts (Past 1 Month) No 01/27/2025 6:19 AM EDMinnie Siegel RN * Calculated C-SSRS Risk Score (Lifetime/Recent) Answer Date of Assessment Author No Risk Indicated 01/27/2025 6:19 AM Minnie Velasquez RN documented as of this encounter Plan of Treatment Not on file documented as of this encounter Visit Diagnoses Not on filedocumented in this encounter Additional Health Concerns Assessment Noted Time PHQ-2 Depression Total Score: 4 03/13/20 22 2:24 PM EST documented as of this encounter Care Teams Agricultural Technical Officer Relationship Specialty Start Date End Date Connor Gomez MD [address] [place] [address] PCP - General Family Medicine 01/26/25 documented as of this encounter
--- OUTSIDE RECORDS SUMMARY | 2025-02-05 00:30 | XMS_ITS | Encounter Summary ---
Author Organization [employer] ([place], [place], [place], [place], [place]) Address [address] [place] [address] Care Team Providers Care Personnel Security Specialist Name Role Phone [facility], Provider Not In The System Primary Care Provider Unavailable Encounter Details Date Type Department Care Team (Late st Contact Info) Description 04/28/2019 Transcribed Document [facility] Family Medicine [facility], [facility] [place] [address] ProviderJean-Claude MD [address] [place] [address] Social History Tobacco Use Types Packs/Day Years Used Date Smoking Tobacco: Never Assessed Comments Unknown Sex and Gender Information Value Date Recorded Sex Assigned at Not on file Legal Sex Female 5:42 PM CDT Gender Identity Not on file Sexual Orientation Not on file documented as of this encounter Miscellaneous Notes * Cerner Conversion Note - Historical ProviderMD - 04/28/2019 7:06 AM LABEL MAKER Pre Procedure Adult Entered On: 04/28/2019 7:12 EST Performed On: 04/28/2019 7:06 EST by ISAMAR MORRISON RN Height and Weight, Clinical Dosing Height Source : Stated Height Entry Format : [place] Height, Feet : 5 ft(Converted to: 152 cm, 60 Inch) Height, Inches : 2 Inch(Converted to: 0 ft 2 Inch, 5.08 cm) Clinical Height : 157.48 cm Weight Source : Standing scale Weight Entry Format : [place] Clinical Dosing Weight : 85 kg Weight, Pounds : 187 lb Body Surface Area (BSA) : 1.86 m2 Body Mass Index : 34.3 kg/m2 (HI) [place] Body Weight : 50 kg ISAMAR MORRISON [...] ISAMAR MORRISON RN - 04/28/2019 7:06 EST [place]son Suicide Severity Rating Scale (C-SSRS) CSSRS Past [...] Obtained From : Patient Primary Language : Somali Preferred Communication Mode : Verbal Communication Barrier [...] Scale Risk Level : 0-24 Low Risk [place] Fall Interventions : Bed in low position, [...] on filedocumented in this encounter Care Teams Personnel Security Specialist Relationship Specialty Start Date End Date Leslee, Provider Not In The System, [place] [address] PCP - General 04/16/23 documented as of this encounter
--- OUTSIDE RECORDS SUMMARY | 2025-02-05 00:30 | XMS_ITS | Encounter Summary ---
Author Organization [employer] ([place], [place], [place], [place], [place]) Address [address] [place] [address] Care Team Providers Care Boiler Control Room Operator Name Role Phone [facility], Provider Not In The System Primary Care Provider Unavailable Encounter Details Date Type Department Care Team (Late st Contact Info) Description 04/28/2019 Transcribed Document [facility] [place] Family [place] [address] ProviderJean-Claude MD [facility] [place] [id number] Social History Tobacco Use Types Packs/Day Years Used Date Smoking Tobacco: Never Assessed Comments Unknown Sex and Gender Information Value Date Recorded Sex Assigned at Not on file Legal Sex Female 5:42 PM CDT Gender Identity Not on file Sexual Orientation Not on file documented as of this encounter Miscellaneous Notes * Cerner Conversion Note - Historical ProviderMD - 04/28/2019 8:29 AM MARINE FUEL DOCK ATTENDANT Pain Assessment Entered On: 04/28/2019 9:06 EST [...] on filedocumented in this encounter Care Teams Boiler Control Room Operator Relationship Specialty Start Date End Date Leslee, Provider Not In The System, [place] [address] PCP - General 04/16/23 documented as of this encounter
--- OUTSIDE RECORDS SUMMARY | 2025-02-05 00:30 | XMS_ITS | Encounter Summary ---
Author Organization [facility] Address [address] [place] [id number] Care Team Providers Care Ventilating Equipment Installer Name Role Phone Connor Gomez MD Primary Care Provider [phone] Reason for Visit * Reason Comments Med Refill Encounter Details Date Type Department Care Team (Late st Contact Info) Description 12/22/2021 Refill [facility] [address] [place] [address] Connor Nunez MD [address] [place] [address] Chronic arthritis associated with viral [...] Time PHQ-2 Depression Total Score: 2 08/11/19 3:16 PM EDT documented as of this encounter Care Teams Ventilating Equipment Installer Relationship Specialty Start Date End Date Connor Gomez MD [facility] [place] [address] PCP - General Family Medicine 01/26/25 documented as of this encounter
--- OUTSIDE RECORDS SUMMARY | 2025-02-05 00:30 | XMS_ITS | Encounter Summary ---
Author Organization [employer] ([place], [place], [place], [place], [place]) Address [address] [place] [address] Care Team Providers Care Printed Circuit Boards Router Name Role Phone Sj, Provider Not In The System Primary Care Provider Unavailable Encounter Details Date Type Department Care Team (Late st Contact Info) Description 04/28/2019 Transcribed Document [facility] [place] [facility] [place] [address] ProviderJean-Claude MD [address] [place] [address] Social History Tobacco Use Types [...] - Historical ProviderMD - 04/28/2019 8:05 AM PULL OVER ADI Main OR IntraOp Summary Primary Physician: MADISON OSPINA MD-ORT Finalized Date/Time: 04/28/19 08:39:15 Pt. Name: MOISE ATKINSON D.O.B./Sex: 1950 Female Med Rec #: [id number] Physician: MADISON OSPINA MD-ORT Financial #: [id number] Pt. Type: O Room/Bed: Admit/Disch: 04/28/19 05:30:00 - Institution: [facility] Intra Case Attendance Entry 1 Entry 2 Entry 3 Case Attendee MADISON OSPINA MD-ORT WICKER, KAREN KIM, ARIA WATERS RN Role Performed Surgeon/Proceduralist, ACCOUNT SERVICES ANALYST/Nurse Rn Recruitment Assembler Mechanical Ordnance, First First Time In 04/28/19 07:39:00 04/28/19 07:39:00 04/28/19 07:39:00 Time Out 04/28/19 08:34:00 04/28/19 08:34:00 04/28/19 08:34:00 Procedure Knee Arthroscopy Knee Arthroscopy Knee Arthroscopy Other Attendee Superficial Wound Closed By: Last Modified By: ARIA MELCHOR RN LONGSWORTH, GARY, RN LONGSWORTH, GARY, SPENCER 04/28/19 08:34:51 04/28/19 08:34:51 04/28/19 08:34:51 Entry 4 Entry 5 Case Attendee CARI CUMMINGS, ATTENDEE #1 Role Performed Scrub, First Student Time In 04/28/19 07:39:00 04/28/19 07:39:00 Time Out 04/28/19 08:34:00 04/28/19 08:34:00 Procedure Knee Arthroscopy Knee Arthroscopy Other Attendee JOSELIN PEARL STUDENT Superficial Wound Closed By: Last Modified By: ARIA MELCHOR RN LONGSWORTH, GARY, RN 04/28/19 08:34:51 04/28/19 08:34:51 [facility] IntraOp Case Attendance Audit 04/28/19 08:34:51 Natural Gas Basis Trader: LONGGA Modifier: LONGGA 1 <+> Time Out 1 <*> Procedure Knee Arthroscopy 2 <+> Time Out 2 <*> Procedure Knee Arthroscopy 3 <+> Time Out 3 <*> Procedure Knee Arthroscopy 4 <+> Time Out 4 <*> Procedure Knee Arthroscopy 5 <+> Time Out 5 <*> Procedure Knee Arthroscopy 04/28/19 08:07:14 Natural Gas Basis Trader: LONGGA Modifier: LONGGA <+> 1 Time In [...] [facility] IntraOp Case Times Audit 04/28/19 08:34:50 Natural Gas Basis Trader: LONGGA Modifier: LONGGA <+> 1 Out Room Time <+> 1 Stop Time 04/28/19 08:31:56 Natural Gas Basis Trader: LONGGA Modifier: LONGGA <+> 1 Stop Time [...] Patient Transport ARIA MELCHOR RN, Accompanied by MOISE MANE CRNA Last Modified By: ARIA MELCHOR RN 04/28/19 08:32:27 [facility] IntraOp Departure from OR Audit 04/28/19 08:32:27 Natural Gas Basis Trader: EMBER Modifier: LONGGA 1 <*> Patient Transport [...] RN 04/28/19 08:15:47 [facility] IntraOp General Case Foot And Ankle Surgeon 1 Case Information OR OR 05 SJE Case Level 1 Room Verified Yes Wound Class I - Clean Specialty SN Orthopedic Anesthesia Type General ASA Class 3 Diagnosis Preop Diagnosis PATELLAR CHONDROMALACIA RIGHT KNEE Postop Same As Preop No Postop Diagnosis DICTATED BY Mary Last Modified By: ARIA MELCHOR RN 04/28/19 08:15:39 [facility] IntraOp General Case Data Audit 04/28/19 08:15:39 Natural Gas Basis Trader: EMBER Modifier: LONGGA <+> 1 ASA Class [...] Entry 1 Medication/Irrigant epinephrine 30mg/30ml vial - [id number] Route of 3ML/3000ML OF NS Administration IRRIGATION [...] LEG TAVAREZ FOR RIGHT LEG Positioned By MOISE MANE CRNA, ARIA MELCHOR, SPENCER, MADISON OSPINA MD-ORT Position Verified Positioning Yes Verified by Anesthesia Positioning Yes Verified by Surgeon Last Modified By: ARIA MELCHOR RN 04/28/19 08:17:49 [facility] IntraOp Patient Positioning Audit 04/28/19 08:17:49 Natural Gas Basis Trader: LONGGA Modifier: LONGGA 1 <*> Procedure Knee [...] S[facility] IntraOp Surgical Procedures Audit 04/28/19 08:31:50 Natural Gas Basis Trader: LONGGA Modifier: LONGGA 1 <*> Procedure Knee Arthroscopy 1 <+> Stop 04/28/19 08:27:35 Natural Gas Basis Trader: LONGGA Modifier: LONGGA 1 <*> Procedure Knee Arthroscopy 1 <*> Additional Procedure Description RIGHT KNEE ARTHROSCOPY FOR RETROPATELLAR CHONDROPLASTY AND PARTIAL MENISCECTOMY 04/28/19 08:21:54 Natural Gas Basis Trader: LONGGA Modifier: LONGGA 1 <*> Procedure Knee Arthroscopy 1 <*> Additional Procedure Description LEFT KNEE ARTHROSCOPY FOR RETROPATELLAR CHONDROPLASTY AND PARTIAL MENISCECTOMY S[facility] IntraOp Temp Regulation Devices Entry 1 Temp Regulation Temperature Forced Air Warming Regulation Device device Temperature 4765 Regulation Device Serial/Unit Number Temperature Upper body Regulation Site Temperature MOISE MANE, ACCOUNT SERVICES ANALYST Regulation Device Applied by Last Modified By: [...] 08:31:38 [facility] IntraOp Tourniquet Audit 04/28/19 08:31:38 Natural Gas Basis Trader: EMBER Modifier: EMBER <+> 1 Stop Time Case Comments <None> Finalized By: ARIA MELCHOR, RN Document Signatures Signed By: ARIA MELCHOR RN 04/28/19 08:39 Electronically signed by May [facility] Conversion Dishwashing Machine Repairer Cerner at 07/23/2022 4:21 PM CDT documented in this encounter Plan of Treatment Not on file documented as of this encounter Visit Diagnoses Not on filedocumented in this encounter Care Teams Printed Circuit Boards Router Relationship Specialty Start Date End Date Deejay, Provider Not In The System, [place] [address] PCP - General 04/16/23 documented as of this encounter
--- OUTSIDE RECORDS SUMMARY | 2025-02-05 00:30 | XMS_ITS | Encounter Summary ---
Author Organization [facility] Address [address] [place] [address] Care Team Providers Care Stacker And Sorter Operator Name Role Phone Connor Gomez MD Primary Care Provider [phone] Encounter Details Date Type Department Care Team (Late st Contact Info) Description 01/29/2025 Readmission Management [facility] [address] [place] [phone] Bg Shaikh, RN Social History Tobacco Use Types Packs/Day Years [...] and heating? Patient unable to answer 01/26/2025 [facility] [place] of Occupat ional Health - Occupational Stress [...] things needed for daily living? No 01/26/2025 [facility] Utilities Answer Date Recorded In the past 12 months has th [employer] electric, gas, oil, or water company threatened [...] Patient unable to answer 01/26/2025 Preferred Language Cape Verdean 01/26/2025 Comments No Sex and Gender Information Value Date Recorded Sex Assigned at Not on file Legal Sex Female 10:14 AM EST Gender Identity Not on file Sexual Orientation Not on file documented as of this encounter Miscellaneous Notes * Outreach Note - Bg Shaikh RN - 01/29/2025 8:01 PM EDT Prep Survey Flowsheet Row Responses [facility] facility patient discharged from? [place] Is LACE score less than 10 ? 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 Other Does the patient have Home health ordered? No Is there a DME ordered? No Prep survey completed? Yes [facility] Serv[facility] - Registered Nurse documented in this encounter Plan of Treatment Not on file documented as of this encounter Visit Diagnoses Not on filedocumented in this encounter Additional Health Concerns Assessment Noted Time PHQ-2 Depression Total Score: 4 03/13/20 22 2:24 PM EST documented as of this encounter Care Teams Stacker And Sorter Operator Relationship Specialty Start Date End Date Connor Gomez MD [address] [place] [address] PCP - General Family Medicine 01/26/25 documented as of this encounter
--- OUTSIDE RECORDS SUMMARY | 2025-02-05 00:30 | XMS_ITS | Patient Health Record ---
Author Organization [facility] Address [address] [place] [address] Care Team Providers Care Stitch Bonding Machine Operator Name Role Phone Timothy Granda DO Primary Care Provider Tha Chaudhry Unavailable [phone] Jesus Rose Unavailable Unavailable Reason For Referral No Information Encounters Encounter Location Date Provider Diagnosis [facility] [address] [place] [address] 04/01/2024 Tha Krishnamurthy [facility] [address] [place] [address] 05/13/2024 Tha Krishnamurthy [facility] [address] [place] [address] 06/17/2024 Tha Krishnamurthy Plan Of Treatment No Information Insurance Providers Payer Name Payer Address Payer Phone Subscriber Number Group Number Insured Name Patient Relationship to Insured Coverage Start Date Coverage End Date Medicare CGS Administrators [address] [phone] Farrah Anna Self - patient is the insured
--- OUTSIDE RECORDS SUMMARY | 2025-02-05 00:30 | XMS_ITS | Encounter Summary ---
Author Organization [facility] Address [address], [address] [place] [address] Care Team Providers Care Upstairs Maid Name Role Phone Unavailable Primary Care Provider Unavailabl e Reason for Visit * Reason Onset Date Comments Surgery Scheduling 12/08/2024 Encounter Details Date Type Department Care Team (Late st Contact Info) Description 12/08/2024 Telephone [facility], [place] [address] Sharon Paulino MD [address] [place] [address] [address] [place] [address] Surgery Scheduling Social History Tobacco [...]
--- OUTSIDE RECORDS SUMMARY | 2025-02-05 00:30 | XMS_ITS | Encounter Summary ---
Author Organization [facility] Address [address] [place] [address] Care Team Providers Care Gallery Manager Name Role Phone Timothy Granda DO Primary Care Provider [phone] Sadia Campo ORACLE AGILE PLM CONSULTANT Unavailable Unavailable Encounter Details Date Type Department Care Team (Late st Contact Info) Description 07/24/2023 Lab Requisition [facility] [address] [place] [address] Miky Coleman MD [address] [place] [address] Encounter for general adult medical [...] drink first t mini in the morning (EYE-CLEAN RICE GRADER AND REEL TENDER) to steady your nerves or to get [...] 07/20/2025 10:40 AM EDT Office Visit [facility] Nephrology, Bone & Mineral Metabolism [address], [address] [place] [address] Gutierrez Domínguez MD [address] [place] [address] documented as of this encounter Procedures [...] MICROBIOLOGY - GEN ERAL ORDERABLES Final Result [facility] [address] [place] [address] documented in this encounter Visit Diagnoses Diagnosis [...] documented as of this encounter Care Teams Gallery Manager Relationship Specialty Start Date End Date Timothy Granda DO [address] [place] [address] PCP - General 05/25/23 Sadia Campo, ORACLE [place]ILE [place] [address] Director Of Strategic Marketing Claim Analyst 08/03/22 06/21/24 documented as of this encounter
--- OUTSIDE RECORDS SUMMARY | 2025-02-05 00:30 | XMS_ITS | Referral Summary ---
Author Organization [employer] ([place], [place], [place], [place], [place]) Address [address] [place] [address] Care Team Providers Care Product Test Engineer Name Role Phone [facility], [...] Date Dereje rded Speak language other than Belizean at home Not on file 04/12/2023 Want [...] of Treatment Not on file Care Teams Product Test Engineer Relationship Specialty Start Date End Date [facility], Provider Not In The System, [place] [address] PCP - General 04/16/23
--- OUTSIDE RECORDS SUMMARY | 2025-02-05 00:30 | XMS_ITS | Clinical Summary ---
Author Organization [facility] Address [address], [address] [place] [address] Care Team Providers Care Change Agent Name Role Phone Unavailable Primary Care Provider [...] (ZANAFLEX) 4 MG tablet 03/20/2024 Active CREON [id number] units CPEP delayed release capsule TAKE ONE [...] Type Department Care Team Description 12/08/2024 Telephone [facility], [place] [address] Sharon Paulino MD Surgery Scheduling 11/21/2024 Telephone [facility] [address] [address] Willa Lan RN Care Coordination (Nurse navigator) 11/20/2024 Telephone [facility] [address] [place] [phone] Sharon Paulino MD Surgery Scheduling ( [facility]) 11/05/2024 Prep for Procedure [facility] Orthopedic [facility] [address] [place] [phone] Laisha Galvan MA History of total replacement [...] ID:Not on file Type:Not on file Address: [address]
--- OUTSIDE RECORDS SUMMARY | 2025-02-05 00:30 | XMS_ITS ---
Author Organization [facility] Address [address] [place] [id number] Care Team Providers Care Data Engineer Name Role Phone Timothy Granda DO Primary Care Provider [phone] Hepatitis C Program Status:Paused (Paused) Start date:08/03/2022 Enrollment date:08/03/2022 Enrollment reason:HCV Continued Care and Services Coordination
--- OUTSIDE RECORDS SUMMARY | 2025-02-05 00:31 | XMS_ITS | Encounter Summary ---
Author Organization [facility] Address [address] [place] [address] Care Team Providers Care Vocational Guidance Counselor Name Role Phone Timothy Granda DO Primary Care Provider [phone] Encounter Details Date Type Department Care Team [...] place to sleep or slept in a custodial (including now)? Patient refused 07/23/2023 CAGE ASSESSMENT [...] first t mini in the morning (EYE-JAVA TECH) to steady your nerves or to get rid of a hangover? 0 11/15/2023 CAGE Questionnaire Score 0 024 Utilities Answer Date Recorded In the past 12 months has th e [employer] gas, oil, or water company threatened to [...] Description 07/20/2025 10:40 AM EDT Office Visit [facility] Nephrology, Bone & Mineral Metabolism [address], [address] [place] [address] Gutierrez Domínguez MD [address] [place] [address] documented as of this encounter Visit Diagnoses Not on filedocumented in this encounter Additional Health Concerns Assessment Noted Time A fall risk assessment has been complete d for the patient 01/19/2025 10:00 AM EDT A Body Mass Index follow-up plan has been documented for the patient 01/20/2025 11:25 AM EDT documented as of this encounter Care Teams Vocational Guidance Counselor Relationship Specialty Start Date End Date Timothy Granda DO [address] [place] [address] PCP - General 05/25/23 documented as of this encounter
--- OUTSIDE RECORDS SUMMARY | 2025-02-05 00:31 | XMS_ITS | Encounter Summary ---
Author Organization [facility] Address [address] [place] [address] Care Team Providers Care Program Support Assistant Name Role Phone Chandra Leahy MD Primary Care Provider [phone] Timothy Granda DO Primary Care Provider [phone] Sadia Campo ARTIST'S MODEL Unavailable Unavailable Encounter Details Date Type Department Care Team (Late st Contact Info) Description 08/14/2022 Lab Requisition [facility] [address] [place] [address] Dilip Lloyd MD [address] [address] Encounter for general adult medical [...] drink first t mini in the morning (EYE-CLAIM AGENT) to steady your nerves or to [...] 07/20/2025 10:40 AM EDT Office Visit [facility] Nephrology, Bone & Mineral Metabolism [address] [address], [address] [place] [address] Gutierrez Domínguez MD [address] [place] [address] documented as of this encounter [...] AM EDT 08/14/2022 9:18 AM EDT us iDlip Greer MD LAB MICROBIOLOGY - GENERAL ORDERABLES Final Result [facility] [address] [place] [address] documented in this encounter Visit Diagnoses Diagnosis Encounter for general adult medical examination without abnormal findings documented in this encounter Additional Health Concerns Infection Onset Date Last Indicated Resolved Time COVID-19 Rule-Out 07/22/2023 07/22/2023 07/22/2023 12:14 PM EDT C. difficile Rule-Out 07/26/2023 08/01/20232023 1:07 AM EDT Gastrointestinal Rule-Out 08/02/2023 08/01/2023 3:00 AM EDT documented as of this encounter Care Teams Program Support Assistant Relationship Specialty Start Date End Date Chandra Leahy MD [address] [place] [address] PCP - General 08/02/22 05/24/23 Timothy Granda DO [address] [place] [address] PCP - General 05/25/23 [place] [address] Telegraph Operator Salmon Gillnet Vessel Operator 08/03/22 06/21/24 documented as of this encounter
--- OUTSIDE RECORDS SUMMARY | 2025-02-05 00:31 | XMS_ITS | Encounter Summary ---
Author Organization [employer] ([place], [place], [place], [place], [place]) Address [address] [place] [address] Care Team Providers Care Presser All Around Name Role Phone [facility], Provider Not In The System Primary Care Provider Unavailable Encounter Details Date Type Department Care Team (Late st Contact Info) Description 04/28/2019 Transcribed Document [facility] [place] [address] [place] [address] ProviderJean-Claude MD [address] [place] [address] Social History Tobacco Use Types [...] - Historical ProviderMD - 04/28/2019 9:51 AM DOGMAN/WOMAN [place] [phone] MOISE ATKINSON :1950 Visit Time:04/28/2019 What to do next Your Diagnosis Pain in unspecified knee, Pain in unspecified knee Instructions From Your Care Team No driving or legal decision for 24 hours after anesthesia. may advance diet as tolerated. May take [place] 10-325mg 1 tablet by mouth every 4-6 [...] Within 2 to 3 days Where: [address] [facility] [address] [place] [address]- Medications What How Much When Instructions Next [...] activities are safe for you. ??? Take yeco-fzt-yytskiv and prescription medicines only as told by [...] 06/25/2001 Document Revised: 11/02/2017 Document Reviewed: 11/02/2017 Glyde Interactive Patient Education ?? 2019 Glyde Inc. Knee Arthroscopy, Care After Refer to [...] activities are safe for you. ??? Perform lrlvk-ua-gpcxsr exercises only as directed by your health [...] 10/06/2005 Document Revised: 08/18/2016 Document Reviewed: 03/15/2015 Glyde Interactive Patient Education ?? 2018 FaceTags. acetaminophen and hydrocodone (a SEET a MIN oh fen and ladonna droe KOE done) Hycet, Lorcet, [place], Verdrocet, Vicodin, Xodol, Zamicet What is the [...] may report side effects to FDA at 7-527-FSD-2393. What other drugs will affect acetaminophen and [...] affect acetaminophen and hydrocodone, including prescription and nxtr-spv-zdfovmr medicines, vitamins, and herbal products. Not all [...] to ensure that the information provided by [employer]. ('Multum') is accurate, up-to-date, and complete, but no guarantee is made to that effect. Drug information contained herein may be time sensitive. [employer] information has been compiled for use by healthcare practitioners and consumers in the [place] and therefore [employer] does not warrant that uses outside of the [place] are appropriate, unless specifically indicated otherwise. ripplrr incs drug information does not endorse drugs, diagnose patients or recommend therapy. [employer] FX drug information is an informational resource designed [...] effective or appropriate for any given patient. [employer] does not assume any responsibility for any aspect of healthcare administered with the aid of information [employer] provides. The information contained herein is not intended to cover all possible uses, directions, precautions, warnings, drug interactions, allergic reactions, or adverse effects. If you have questions about the drugs you are taking, check with your doctor, nurse or pharmacist. Copyright 4528-3225 [employer]. Version: 15.02. Revision Date: 02/04/2018. Emergency [...] Assistance with quitting is available by contacting 3-530-DQZK-NOW. This is a free resource providing counseling, [...] was given the opportunity to ask questions. Patient/Personnel Security Specialist Name: Patient/Personnel Security Specialist Signature: Relationship to Patient: Clinician/Hospital Personnel Security Specialist Signature: Date: Electronically signed by Leslee Olvera Conversion Railroad Wheels And Axle Inspector Karenner at 07/23/2022 4:31 PM CDT documented in this encounter Plan of Treatment Not on file documented as of this encounter Visit Diagnoses Not on filedocumented in this encounter Care Teams Presser All Around Relationship Specialty Start Date End Date Deejay, Provider Not In The System, [place] [address] PCP - General 04/16/23 documented as of this encounter
--- OUTSIDE RECORDS SUMMARY | 2025-02-05 00:31 | XMS_ITS | Encounter Summary ---
Author Organization [employer] ([place], [place], [place], [place], [place]) Address [address] [place] [address] Care Team Providers Care Life Enrichment Assistant Name Role Phone [facility], Provider Not In The System Primary Care Provider Unavailable Encounter Details Date Type Department Care Team (Late st Contact Info) Description 04/28/2019 Transcribed Document [facility] [place] [facility] [place] [address] ProviderJean-Claude MD [address] [place] [address] Social History Tobacco Use Types [...] - Historical ProviderMD - 04/28/2019 8:29 AM DIRECT MAIL MARKETER Pain Assessment Entered On: 04/28/2019 9:28 EST [...] on filedocumented in this encounter Care Teams Life Enrichment Assistant Relationship Specialty Start Date End Date [facility], Provider Not In The System, [place] [address] PCP - General 04/16/23 documented as of this encounter
--- OUTSIDE RECORDS SUMMARY | 2025-02-05 00:31 | XMS_ITS | Encounter Summary ---
Author Organization [employer] ([place], [place], [place], [place], [place]) Address [address] [place] [address] Care Team Providers Care Chrome Plater Helper Name Role Phone Sj, Provider Not In The System Primary Care Provider Unavailable Encounter Details Date Type Department Care Team (Late st Contact Info) Description 04/28/2019 Transcribed Document [facility] [place] [facility] [place] [address] ProviderJean-Claude MD [facility] [place], [place] [id number] Social History Tobacco Use Types Packs/Day Years Used Date Smoking Tobacco: Never Assessed Comments Unknown Sex and Gender Information Value Date Recorded Sex Assigned at Not on file Legal Sex Female 5:42 PM CDT Gender Identity Not on file Sexual Orientation Not on file documented as of this encounter Miscellaneous Notes * Cerner Conversion Note - Historical ProviderMD - 04/28/2019 9:04 AM ASSISTANT PROFESSOR OF DRAMA DATE OF PROCEDURE: 04/28/2019 SURGEON: Timothy Foster [...] to the recovery room in satisfactory condition. /[id number] MD MICHAEL Trujillo/JAZMYN / MICHAEL / MODL /[id number] documented in this encounter Plan of Treatment Not on file documented as of this encounter Visit Diagnoses Not on filedocumented in this encounter Care Teams Chrome Plater Helper Relationship Specialty Start Date End Date Leslee, Provider Not In The System, [place] [address] PCP - General 04/16/23 documented as of this encounter
--- OUTSIDE RECORDS SUMMARY | 2025-02-05 00:31 | XMS_ITS | Clinical Summary ---
Author Organization [employer] ([place], [place], [place], [place], [place]) Address [address] [place] [address] Care Team Providers Care Beamer Operator Name Role Phone Sj, Provider Not In The System MD Primary Care Provider Unavailable Social History Tobacco [...] Date Dereje rded Speak language other than Kazakh at home Not on file 04/12/2023 Want [...] - 1-dose 75+ series) 09/26/2026 Care Teams Beamer Operator Relationship Specialty Start Date End Date [facility], Provider Not In The System, [place] [address] PCP - General 04/16/23
--- OUTSIDE RECORDS SUMMARY | 2025-02-05 00:31 | XMS_ITS | Encounter Summary ---
Author Organization [employer] [facility] Address [address] [facility] [facility] [address], [address] [place] [address] Care Team Providers Care Life Management Teacher Name Role Phone Unavailable Primary Care Provider Unavailabl e Reason for Visit * Reason Onset Date Comments Surgery Scheduling 10/10/2024 Encounter Details Date Type Department Care Team (Late st Contact Info) Description 10/10/2024 Telephone [facility] [address] [place], [place] [phone] Sharon Paulino MD [address] [place] [address] [address] [place] [address] Surgery Scheduling Social History Tobacco [...]
--- OUTSIDE RECORDS SUMMARY | 2025-02-05 00:31 | XMS_ITS | Encounter Summary ---
Author Organization [employer] ([place], [place], [place], [place], [place]) Address [address] [place] [address] Care Team Providers Care Kingsbury Machine Operator Name Role Phone Sj, Provider Not In The System Primary Care Provider Unavailable Encounter Details Date Type Department Care Team (Late st Contact Info) Description 04/28/2019 Transcribed Document [facility] [place] Family Medicine [facility] [place] [address] ProviderJean-Claude MD [address] [place] [address] Social History Tobacco Use Types [...] - Jean-Claude ProviderMD - 04/28/2019 9:47 AM SENIOR IT ASSISTANT Patient Education Materials Follows: General Anesthesia, Adult, [...] activities are safe for you. ??? Take ielf-stn-zrxkyde and prescription medicines only as told by [...] 06/25/2001 Document Revised: 11/02/2017 Document Reviewed: 11/02/2017 GuestShots Interactive Patient Education ? 2019 GuestShots Inc. Knee Arthroscopy, Care After Refer to [...] activities are safe for you. ??? Perform urwbt-wt-vsocyn exercises only as directed by your health [...] 03/15/2015 Elsevier Interactive Patient Education ? 2018 GuestShots Inc. documented in this encounter Plan of Treatment Not on file documented as of this encounter Visit Diagnoses Not on filedocumented in this encounter Care Teams Kingsbury Machine Operator Relationship Specialty Start Date End Date Leslee, Provider Not In The System, [place] [address] PCP - General 04/16/23 documented as of this encounter
--- OUTSIDE RECORDS SUMMARY | 2025-02-05 00:31 | XMS_ITS | Encounter Summary ---
Author Organization [employer] ([place], [place], [place], [place], [place]) Address [address] [place] [address] Care Team Providers Care Charge Lpn Name Role Phone [facility], Provider Not In The System Primary Care Provider Unavailable Encounter Details Date Type Department Care Team (Late st Contact Info) Description 04/28/2019 Transcribed Document [facility] [place] [address] [place] [address] ProviderJean-Claude MD [address], [place] [id number] Social History Tobacco Use Types Packs/Day Years Used Date Smoking Tobacco: Never Assessed Comments Unknown Sex and Gender Information Value Date Recorded Sex Assigned at Not on file Legal Sex Female 5:42 PM CDT Gender Identity Not on file Sexual Orientation Not on file documented as of this encounter Miscellaneous Notes * Cerner Conversion Note - Historical ProviderMD - 04/28/2019 8:05 AM INSURANCE REPRESENTATIVE ADI Main OR PreOp Summary Primary Physician: MADISON OSPINA MD-ORT Finalized Date/Time: 04/28/19 09:32:12 Pt. Name: MOISE ATKINSON/Sex: 1950 Female Med Rec #: [id number] Physician: MADISON OSPINA MD-ORT Financial #: [id number] Pt. Type: O Room/Bed: Admit/Disch: 04/28/19 05:30:00 - Institution: [facility] [place] PreOp Case Times Entry 1 In Preop 04/28/19 05:40:00 Ready for Holding n/a Room Patient Ready for 04/28/19 07:15:00 Surgery Patient Out of Preop 04/28/19 07:36:00 Patient Out of n/a Holding Room Last Modified By: ISAMAR MORRISON RN 04/28/19 09:32:08 David PreOp Case Times Audit 04/28/19 09:32:08 Pearler: FLOYDSF Modifier: FLOYDSF <+> 1 Patient Out of Preop Finalized By: ISAMAR MORRISON, RN Document Signatures Signed By: ISAMAR MORRISON RN 04/28/19 09:32 Electronically signed by May [facility] Conversion Iv Therapy Nurse Cerner at 07/23/2022 4:31 PM CDT documented in this encounter Plan of Treatment Not on file documented as of this encounter Visit Diagnoses Not on filedocumented in this encounter Care Teams Charge Lpn Relationship Specialty Start Date End Date [facility], Provider Not In The System, [place] [address] PCP - General 04/16/23 documented as of this encounter
--- OUTSIDE RECORDS SUMMARY | 2025-02-05 00:31 | XMS_ITS | Encounter Summary ---
Author Organization [employer] ([place], [place], [place], [place], [place]) Address [address] [place] [address] Care Team Providers Care Clinical Psychiatrist Name Role Phone [facility], Provider Not In The System Primary Care Provider Unavailable Encounter Details Date Type Department Care Team (Late st Contact Info) Description 04/28/2019 Transcribed Document [facility] [place] [facility] [place] [address] ProviderJean-Claude MD [address], [place] [id number] Social History Tobacco Use Types Packs/Day Years Used Date Smoking Tobacco: Never Assessed Comments Unknown Sex and Gender Information Value Date Recorded Sex Assigned at Not on file Legal Sex Female 5:42 PM CDT Gender Identity Not on file Sexual Orientation Not on file documented as of this encounter Miscellaneous Notes * Cerner Conversion Note - Historical ProviderMD - 04/28/2019 8:05 AM CEMENT MASON APPRENTICE [facility] Main OR PACU Summary Primary Physician: MADISON OSPINA MD-ORT Finalized Date/Time: 04/28/19 09:40:55 Pt. Name: MOISE ATKINSON/Sex: 1950 Female Med Rec #: [id number] Physician: MADISON OSPINA MD-ORT Financial #: [id number] Pt. Type: O Room/Bed: Admit/Disch: 04/28/19 05:30:00 - Institution: [facility] OR PACU Case Times Entry 1 In PACU I 04/28/19 08:38:00 Ready for PACU 04/28/19 09:33:00 Discharge Discharge from PACU 04/28/19 09:33:00 I Last Modified By: Eduarda Patel Rn Patient Care Bedside 04/28/19 09:40:12 SJDavid Main OR PACU Case Times Audit 04/28/19 09:40:12 Sofa Cover Inspector: SADE Modifier: SADE <+> 1 Ready for PACU Discharge <+> 1 Discharge from PACU I Finalized By: Eduarda Patel Rn Patient Care Bedside Document Signatures Signed By: Eduarda Patel Rn Patient Care Bedside 04/28/19 09:40 documented in this encounter Plan of Treatment Not on file documented as of this encounter Visit Diagnoses Not on filedocumented in this encounter Care Teams Clinical Psychiatrist Relationship Specialty Start Date End Date [facility], Provider Not In The System, [place] [address] PCP - General 04/16/23 documented as of this encounter
--- OUTSIDE RECORDS SUMMARY | 2025-02-05 00:31 | XMS_ITS | Encounter Summary ---
Author Organization [employer] ([place], [place], [place], [place], [place]) Address [address] [place] [address] Care Team Providers Care Import Specialist Name Role Phone [facility], Provider Not In The System Primary Care Provider Unavailable Encounter Details Date Type Department Care Team (Late st Contact Info) Description 04/28/2019 Transcribed Document [facility] [place] [address] ProviderJean-Claude MD [address], [place] [id number] Social History Tobacco Use Types Packs/Day Years Used Date Smoking Tobacco: Never Assessed Comments Unknown Sex and Gender Information Value Date Recorded Sex Assigned at Not on file Legal Sex Female 5:42 PM CDT Gender Identity Not on file Sexual Orientation Not on file documented as of this encounter Miscellaneous Notes * Cerner Conversion Note - Historical ProviderMD - 04/28/2019 8:05 AM CUSTOMER CONTACT SPECIALIST ADI Main OR PostOp Summary Primary Physician: MADISON OSPINA MD-ORT Finalized Date/Time: 04/28/19 10:18:29 Pt. Name: MOISE ATKINSON/Sex: 1950 Female Med Rec #: [id number] Physician: MADISON OSPINA MD-ORT Financial #: [id number] Pt. Type: O Room/Bed: Admit/Disch: 04/28/19 05:30:00 - Institution: [facility] [place] Main OR PostOp Case Times Entry 1 In PACU II 04/28/19 09:36:00 Ready for PACU II 04/28/19 10:15:00 Discharge Discharge from PACU 04/28/19 10:15:00 II Last Modified By: Shanel Conrad SPENCER 04/28/19 10:18:24 Finalized By: Shanel Conrad, RN Document Signatures Signed By: Shanel Conrad RN 04/28/19 10:18 Electronically signed by May [facility] Conversion It Communications Specialist Cerner at 07/23/2022 4:27 PM CDT documented in this encounter Plan of Treatment Not on file documented as of this encounter Visit Diagnoses Not on filedocumented in this encounter Care Teams Import Specialist Relationship Specialty Start Date End Date [facility], Provider Not In The System, [place] [address] PCP - General 04/16/23 documented as of this encounter
--- OUTSIDE RECORDS SUMMARY | 2025-02-05 00:31 | XMS_ITS | Encounter Summary ---
Author Organization [employer] ([place], [place], [place], [place], [place]) Address [address] [place] [address] Care Team Providers Care Rn Cardiac Cath Name Role Phone [facility], Provider Not In The System Primary Care Provider Unavailable Encounter Details Date Type Department Care Team (Late st Contact Info) Description 04/28/2019 Transcribed Document [facility] [place] [address] [place] [address] ProviderJean-Claude MD [address] [place] [address] Social History Tobacco Use Types [...] - Historical ProviderMD - 04/28/2019 10:01 AM HEALTH INSURANCE AGENT [place] [phone] MOISE ATKINSON :1950 Visit Time:04/28/2019 What to do next Your Diagnosis Pain in unspecified knee, Pain in unspecified knee Instructions From Your Care Team No driving or legal decision for 24 hours after anesthesia. may advance diet as tolerated. May take [place] 10-325mg 1 tablet by mouth every 4-6 [...] EST Comments Appointment has been made Where: [address] [facility] [address] [place] [address]- Medications What How Much When Instructions Next [...] activities are safe for you. ??? Take yhsf-ayv-pgigvka and prescription medicines only as told by [...] 06/25/2001 Document Revised: 11/02/2017 Document Reviewed: 11/02/2017 MasCupon Interactive Patient Education ?? 2019 [employer]upon Inc. Knee Arthroscopy, Care After Refer to [...] activities are safe for you. ??? Perform ojlcq-hb-nfbeph exercises only as directed by your health [...] 10/06/2005 Document Revised: 08/18/2016 Document Reviewed: 03/15/2015 MasCupon Interactive Patient Education ?? 2018 [employer]u. acetaminophen and hydrocodone (a SEET a MIN oh fen and ladonna droe KOE done) Hycet, Lorcet, [place], Verdrocet, Vicodin, Xodol, Zamicet What is the [...] may report side effects to FDA at 4-585-ZNR-5927. What other drugs will affect acetaminophen and [...] affect acetaminophen and hydrocodone, including prescription and stjf-cyb-gldpgyu medicines, vitamins, and herbal products. Not all [...] to ensure that the information provided by [employer]. ('Multum') is accurate, up-to-date, and complete, but no guarantee is made to that effect. Drug information contained herein may be time sensitive. [employer] information has been compiled for use by healthcare practitioners and consumers in the [place] and therefore [employer] does not warrant that uses outside of the [place] are appropriate, unless specifically indicated otherwise. [employer] drug information does not endorse drugs, diagnose patients or recommend therapy. Paw[employer] drug information is an informational resource designed [...] effective or appropriate for any given patient. [employer] does not assume any responsibility for any aspect of healthcare administered with the aid of information [employer] provides. The information contained herein is not intended to cover all possible uses, directions, precautions, warnings, drug interactions, allergic reactions, or adverse effects. If you have questions about the drugs you are taking, check with your doctor, nurse or pharmacist. Copyright 1885-0454 [employer]. Version: 15.02. Revision Date: 02/04/2018. Emergency Awareness [...] Assistance with quitting is available by contacting 9-532-DXGH-NOW. This is a free resource providing counseling, [...] was given the opportunity to ask questions. Patient/Validation Consultant Name: Patient/Validation Consultant Signature: Relationship to Patient: Clinician/Hospital Validation Consultant Signature: Date: documented in this encounter Plan of Treatment Not on file documented as of this encounter Visit Diagnoses Not on filedocumented in this encounter Care Teams Rn Cardiac Cath Relationship Specialty Start Date End Date [facility], Provider Not In The System, [place] [address] PCP - General 04/16/23 documented as of this encounter
--- OUTSIDE RECORDS SUMMARY | 2025-02-05 00:32 | XMS_ITS | Encounter Summary ---
Author Organization [employer] [facility] Address [address], [address] [place] [address] Care Team Providers Care Lockstitch Hemmer Name Role Phone Unavailable Primary Care Provider Unavailabl e Reason for Visit * Reason Onset Date Comments Surgery Scheduling 11/20/2024 LT SHDLR Encounter Details Date Type Department Care Team (Late st Contact Info) Description 11/20/2024 Telephone [facility] [address] [place] [phone] [place] [address] [place] [address] [address] [place] [address] Surgery Scheduling (LT SHDLR) Social [...]
--- OUTSIDE RECORDS SUMMARY | 2025-02-05 00:32 | XMS_ITS | Encounter Summary ---
Author Organization [employer] [facility] Address [address] [place] [address], [address] [place] [address] Care Team Providers Care Film Processing Supervisor Name Role Phone Unavailable Primary Care Provider Unavailabl e Reason for Visit * Reason Onset Date Comments Care Coordination 11/21/2024 Nurse navigato r Encounter Details Date Type Department Care Team (Late st Contact Info) Description 11/21/2024 Telephone [facility] [place] [phone] Willa Lan RN Care Coordination (Nurse navigator) [...]
--- OUTSIDE RECORDS SUMMARY | 2025-02-05 00:32 | XMS_ITS | Clinical Summary ---
Author Organization [facility] Address [address] [place] [address] Phone Care Team Providers Care Water Treatment Plant Operator Name Role Phone Unavailable Primary Care [...] Insurance MEDICARE [place] PART A AND B Proactive Comfort
--- OUTSIDE RECORDS SUMMARY | 2025-02-05 00:33 | XMS_ITS | Encounter Summary ---
Author Organization [employer] [facility] Address [address] [place] [address] Care Team Providers Care Sales Lead Name Role Phone Unavailable Primary Care Provider Unavailabl e Encounter Details Date Type Department Care Team (Latest Contact Info) Description 11/05/2024 Prep for Procedure [facility] [address] [place] [address] SpringfieldLaisha MA History of total replacement of left [...]
--- OUTSIDE RECORDS SUMMARY | 2025-02-05 00:34 | XMS_ITS | Clinical Summary ---
Author Organization [facility] Address [address] [place] [address] Care Team Providers Care Special Forces Specialist Name Role Phone Timtohy Granda DO Primary Care Provider [phone] Allergies Active Allergy Reactions Criticality Noted Date [...] Description 01/19/2025 10:00 AM EDT Office Visit [facility] Nephrology, Bone & Mineral Metabolism [address], [address] [place] [address] Gutierrez Domínguez MD Acute kidney injury (Primary Dx); Vitamin D deficiency; CKD stage 3a, GFR 45-59 ml/min ([facility]/HCC); Chronic kidney disease-mineral and bone disorder (CKD-MBD); Secondary hyperparathyroidism of renal origin ([facility]); Hypertension, unspecified type; Hyperlipidemia, unspecified hyperlipidemia type 01/19/2025 Travel 01/07/2025 Orders Only [facility] [address] [place] [id number] Shantal Solorio TIP (acute kidney injury) (Primary Dx); Vitamin D insufficiency from Last 3 Months Immunizations Immunization Administration Dates Next Due Influenza Vaccine, Quadrivalent, Adjuvanted 01/31,01/25/2022,05/31/2021 Influenza, injectable, quadrivalent 02/14/2015 Influenza, injectable, quadr ivalent, preservative free 02/14/2015 Influenza, trivalent, adjuvanted 12/22/2019 Office Max COVID-19 Vaccine (Blue Cap) 18+ 06/10/19 Moderna [...] drink first t mini in the morning ([employer]) to steady your nerves or to get rid of a hangover? 0 11/15/2023 CAGE Questionnaire Score 0 024 Utilities Answer Date Recorded In the past 12 months has e [employer], gas, oil, or water [employer] threatened to shut off services in your [...] Upcoming Encounters Date Type Department Care Team ([facility] st Contact Info) Description 07/20/2025 10:40 AM EDT Office Visit Professional [facility] Nephrology, Bone & Mineral Metabolism [address], [address] [place] [address] Gutierrez Domínguez MD [address] [place] [phone] Health Maintenance Due Date Last Done Comments [facility]-Bone Density Scan 1950 [facility]-Infant/Child/Adol SDOH Screenings 1950 [facility]- SDOH Screenings 09/26/1969 [facility]-Adult SDOH Screenings 09/26/1969 [facility]-DTaP,Tdap,and Td Vaccines (1 - Tdap) 09/26/1970 CT Colonography 09/26/1996 FIT-DNA 09/26/1996 FIT 09/26/1996 FOBT 09/26/1996 [facility]-Breast Cancer Screening 09/26/2001 [facility]-Zoster Vaccines (1 of 2) 09/26/2001 [facility]-Medicare Annual Wellness (AWV) 03/13/2023 03/13/2022 [facility]-Depression Screening 03/27/2024 03/27/2023 [id number] Vaccine ( season) 2024 02/20/2024, 02/09/2023, 01/25/2022, [...] Antigen Negative Negative 08/02/2023 7:49 PM EDT [facility] Hepatitis A Antibody IgM Negative Negative 08/02/2023 7:49 PM EDT [facility] Hepatitis B Core Antibody IgM Negative Negative 08/02/2023 7:49 PM EDT [facility] Blood Venous blood specimen / Unknown [...] Final R esult [facility] [address] [place] [address] * Flexible Sigmoidoscopy (02/21/2023 10:25 AM EST) [...] MD Adam Rooks, MD Proceduralist vice president corporate communications Adama Montes, Chika Peterson CRNA, RN Endo Nurse Butch Little MD Fellow Tete Whitmore Endo Payroll Technician Preprocedure A history and physical has been [...] of bowel preparation was evaluated using the Jericho Bowel Preparation Scale with scores of: left [...] of bowel preparation was evaluated using the [place]icho Bowel Preparation Scale with scores of: right [...] Patient has decision-making capacity? Yes Care Teams Special Forces Specialist Relationship Specialty Start Date End Date Timothy Granda DO [address] [place] [address] PCP - General 05/25/23
--- NOTE | 2025-02-05 00:43 | CT_ITS ---
PROCEDURE INFORMATION: Exam: CT Abdomen And Pelvis With Contrast Exam date and time: 02/05/2025 1:27 AM Age: 74 years old Clinical indication: Abdominal pain; Additional info: Severe abd pain TECHNIQUE: Imaging protocol: Computed tomography of the abdomen and pelvis with contrast. Total images: 308 Radiation optimization: All CT scans at this facility use at least one of these dose optimization techniques: automated exposure control; mA and/or kV adjustment per patient size (includes targeted exams where dose is matched to clinical indication); or iterative reconstruction. Contrast material: ISOVUE; Contrast volume: 75 ml; Contrast route: IV; COMPARISON: CT ABDOMEN PELVIS W CON 01/25/2025 3:17 PM FINDINGS: Lungs: Minor bibasilar dependent atelectasis. Heart: Normal heart size. Liver: Small liver cyst. Otherwise, unremarkable. Gallbladder and biliary ducts: Normal. No calcified stones. No ductal dilation. Pancreas: Normal. No ductal dilation. Spleen: Calcified splenic granuloma. No splenomegaly. Adrenal glands: Normal. No mass. Kidneys and ureters: No hydronephrosis, nephrolithiasis, or renal mass. Stomach and bowel: Moderate gastric distension with recently ingested contents. Postsurgical changes referable to segments of proximal small bowel with adynamic ileus. 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 Dilated distal bowel loops up to 4 cm with associated air-fluid levels. Moderate wall thickening of the distal bowel at the level of the ostomy with adjacent edema implying acute enteritis. No bowel wall pneumatosis. Mild mesenteric edema associated with the distal bowel process. No ascites. No free air. Collapsed remaining rectum. Appendix: No evidence of appendicitis. Intraperitoneal space: No ascites. No free air. Vasculature: Mild atherosclerotic vascular disease. Nonaneurysmal abdominal aorta. Major abdominal vessels enhance appropriately. Lymph nodes: Unremarkable. No enlarged lymph nodes. Urinary bladder: Unremarkable as visualized. Reproductive: Nonenlarged uterus. Nonvisualized ovaries. No adnexal mass. Bones/joints: The bladder is obscured by metallic artifact from hip replacement. Osteopenia. Moderate degenerative changes throughout the thoracolumbar spine. Bilateral total hip arthroplasty. Minor thoracolumbar scoliosis. Soft tissues: Midline abdominal wall scarring. IMPRESSION: 1. Moderate bowel wall thickening and surrounding edema referable to the distal bowel, at the ostomy and within the peritoneal cavity, in keeping with acute enteritis. 2. Associated fluid distended distal bowel, most in keeping with ileus associated with the enteritis. No secondary signs for mechanical bowel obstruction.
--- NOTE | 2025-02-05 00:46 | HMH.EDGENADL ---
Discharge Plan Disposition Patient Disposition: Home, Self-Care Prescriptions Prescriptions: New hydralazine 10 mg tablet 10 mg PO Q6H PRN (Reason: hypertension) Qty: 60 0RF Rx Instructions: until target blood pressure attained No Action amitriptyline 50 mg tablet 50 mg PO HS Qty: 30 12RF aripiprazole 2 mg tablet 2 mg PO DAILY estradiol 0.25 mg/0.25 gram (0.1 %) gel in packet 1 packet transdermal DAILY sulfamethoxazole-trimethoprim 400-80 mg tablet 1 tab PO DAILY 90 Days Qty: 90 3RF nystatin 100,000 unit/gram cream 1 applic TOPICAL BID Qty: 30 5RF tretinoin [Retin-A] 0.05 % cream 1 applic topical HS Qty: 45 2RF hydromorphone 4 mg tablet 4 mg PO Q4HP PRN (Reason: Severe Pain (Scale Score 7-10)) Qty: 60 0RF oxycodone 10 mg tablet 10 mg PO Q4HP MDD No> 6/day PRN (Reason: Moderate Pain (Scale Score 5-6)) Qty: 180 0RF ergocalciferol (vitamin D2) 1,250 mcg (50,000 unit) capsule 1,250 mcg PO WEEKLY Qty: 4 1RF atorvastatin 40 mg tablet 40 mg PO DAILY Qty: 90 3RF diphenoxylate-atropine 2.5-0.025 mg tablet 1 tab PO TID 90 Days Qty: 270 3RF tizanidine 4 mg tablet See Rx Instructions .ROUTE .COMPLEX Qty: 90 0RF Dose Instruction: TAKE 1 TABLET BY MOUTH THREE TIMES DAILY NEEDED FOR MUSCLE SPASTICITY MAY CAUSE DROWSINESS Rx Instructions: TAKE 1 TABLET BY MOUTH THREE TIMES DAILY NEEDED FOR MUSCLE SPASTICITY MAY CAUSE DROWSINESS furosemide 40 mg tablet 40 mg PO DAILYP PRN (Reason: Edema) Qty: 30 1RF clonidine HCl 0.1 mg tablet See Rx Instructions .ROUTE .COMPLEX Qty: 180 0RF Dose Instruction: TAKE ONE TO TWO TABLETS BY MOUTH 2 TO 3 TIMES A DAY NEEDED FOR ANXIETY MAY CAUSE DROWSINESS Rx Instructions: TAKE ONE TO TWO TABLETS BY MOUTH 2 TO 3 TIMES A DAY NEEDED FOR ANXIETY MAY CAUSE DROWSINESS amlodipine 5 mg tablet 5 mg PO HS Qty: 90 3RF levothyroxine 25 mcg tablet 25 mcg PO DAILY Qty: 90 3RF losartan 50 mg tablet 75 mg PO DAILY Qty: 135 3RF sulfamethoxazole-trimethoprim 800-160 mg tablet 1 tab PO BID 5 Days Qty: 10 0RF dicyclomine 10 mg capsule 10 mg PO TIDP PRN (Reason: abdominal pain) ciclopirox 0.77 % gel 1 applic topical DAILY Rx Instructions: Apply daily to affected toenail. Smooth with emery board weekly. duloxetine 60 mg capsule,delayed release(DR/EC) 120 mg PO DAILY Referrals Follow up/Referrals: Connor Gomez MD [Primary Care Provider, Family Practice] - See instructions Activity Restrictions/Add. Instructions Additional Instructions/Restrictions: I sent a prescription for hydralazine to take for your blood pressure. Recommend taking your normal blood pressure medications and taking the hydralazine as needed every 6-12 hours for blood pressures that remain elevated. Please follow-up with your primary care provider. Please return to the emergency department if you develop any new or worsening symptoms or become concerned for your health. Clinical Impressions Clinical Impression: Enteritis, Hypertension Instructions Patient Instructions: DI for Acute Abdominal Pain Print Language Print Language: Tajik Discharge ED Provider: Manjit Barahona General Adult HPI General Chief complaint: Abdominal Pain Stated complaint: abd pain, nausea, high bp, lethargic Time Seen by Provider: 02/05/25 00:15 Mode of Arrival: Wheelchair Source of Information: Patient and Spouse Description of Symptoms (Recalled from ER Triage Doc. by RN): PT brought to the ED for evaluation of high blood pressure and N/V. PT stated her BP was 200/99 on an at home machine. History of Present Illness HPI narrative: 74-year-old female with extensive past medical history presents for abdominal pain and hypertension. She was here 2 weeks ago and had similar presentation when I saw her. Her blood pressure improved with pain medication and her scans were unremarkable and she was discharged. She came back the next day with severe hypertension and altered mental status and ended up being transferred and diagnosed with posterior vertebral encephalopathy syndrome. She was in the hospital at [facility] for several days, had her blood pressure medications adjusted and was discharged. She has been home for a week and has been doing okay but the feels like she has been more lethargic over the last few days. Today she started having worsening abdominal pain. She also had worsening ileostomy output for which she took Lomotil. Her blood pressure has been in the 150s and 160s at home, but was 200 systolic at home prior to coming to the ER. Related Data Home Medications ?Medication ?Instructions ?Recorded ?Confirmed aripiprazole 2 mg tablet 2 mg PO DAILY 05/09/24 01/15/25 ciclopirox 0.77 % topical gel 1 applic topical DAILY 11/30/24 01/15/25 Held on 01/28/25. Instructions: Deferring continuation of medication to accepting facility due to current state of altered mental status. Oral medications currently are not appropriate due to her mentation state. Will defer as noted. dicyclomine 10 mg capsule 10 mg PO TIDP PRN abdominal pain 11/30/24 01/15/25 Held on 01/28/25. Instructions: Deferring continuation of medication to accepting facility due to current state of altered mental status. Oral medications currently are not appropriate due to her mentation state. Will defer as noted. duloxetine 60 mg capsule,delayed 120 mg PO DAILY 11/30/24 01/15/25 release Held on 01/28/25. Instructions: Deferring continuation of medication to accepting facility due to current state of altered mental status. Oral medications currently are not appropriate due to her mentation state. Will defer as noted. estradiol 0.25 mg/0.25 gram (0.1 1 packet transdermal DAILY 01/08/25 01/15/25 %) transdermal gel packet Previous Rx's ?Medication ?Instructions ?Recorded amitriptyline 50 mg tablet 50 mg PO HS #30 tabs 03/04/24 ergocalciferol (vitamin D2) 1,250 1,250 mcg PO WEEKLY #4 caps 07/07/24 mcg (50,000 unit) capsule atorvastatin 40 mg tablet 40 mg PO DAILY #90 tabs 10/16/24 diphenoxylate-atropine 2.5 1 tab PO TID 90 days #270 tabs 11/26/24 mg-0.025 mg tablet tizanidine 4 mg tablet See Rx Instructions .Route 01/01/25 .COMPLEX #90 ea furosemide 40 mg tablet 40 mg PO DAILYP PRN Edema #30 tabs 01/02/25 clonidine HCl 0.1 mg tablet See Rx Instructions .Route 01/07/25 .COMPLEX #180 tabs hydromorphone 4 mg tablet 4 mg PO Q4HP PRN Severe Pain 01/08/25 (Scale Score 7-10) #60 tabs nystatin 100,000 unit/gram topical 1 applic topical BID Rash #30 grams 01/08/25 cream oxycodone 10 mg tablet 10 mg PO Q4HP PRN Moderate Pain 01/08/25 (Scale Score 5-6) #180 tabs sulfamethoxazole 400 1 tab PO DAILY 90 days #90 tabs 01/08/25 mg-trimethoprim 80 mg tablet tretinoin 0.05 % topical cream 1 applic topical HS #45 grams 01/08/25 (Retin-A) amlodipine 5 mg tablet 5 mg PO HS #90 tabs 01/11/25 levothyroxine 25 mcg tablet 25 mcg PO DAILY #90 tabs 01/11/25 losartan 50 mg tablet 75 mg (1.5 x 50 mg) PO DAILY #135 01/11/25 tabs sulfamethoxazole 800 1 tab PO BID 5 days #10 tabs 01/12/25 mg-trimethoprim 160 mg tablet hydralazine 10 mg tablet 10 mg PO Q6H PRN hypertension #60 02/05/25 tabs Allergies Allergy/AdvReac Type Severity Reaction Status Date / Time ciprofloxacin (From Cipro) Allergy Intermediate Muscle Pain Verified 01/15/25 11:20 levofloxacin (From Levaquin) AdvReac Rash Verified 01/15/25 11:20 PFSH PFSH Disclaimer: The information contained in this section may have been updated after the patient was seen, as this information can be updated by other users. Medical History Left foot pain Right foot injury Chronic kidney disease TIP (acute kidney injury) Systolic murmur Bowel wall thickening Ischemic bowel disease Hypertension Paroxysmal atrial fibrillation Aftercare following bilateral knee joint replacement surgery C. difficile diarrhea Colostomy in place Perforated sigmoid colon Elevated liver enzymes Ileus Abnormal electrocardiogram [ECG] [EKG] Abdominal pain Hypothyroidism IBS (irritable bowel syndrome) HLD (hyperlipidemia) HTN (hypertension), benign Hypokalemia Hypokalemia due to loss of potassium Surgical History H/O ileostomy History of total right hip replacement History of arthroscopy of left shoulder Family History Other Anemia Asthma Cancer Hyperlipidemia Social History Smoking Status: Never smoker second hand exposure: No alcohol intake: never current occupational status: retired Travel in the last 8 weeks?: None household members: spouse housing: house marital status: current occupational exposures/hazards: No caffeine: No Have you lived/traveled outside [place] in past 30 days?: No Contact w/someone who lives/traveled outside US past 30 days?: No Exposure to someone with infectious disease in past 14 days?: No Do you have a fever (greater than 100.4 F or 38 C)?: No Have you tested positive for COVID-19?: No Exposed to someone with COVID-19 in past 14 days?: No Do you have a sore throat?: No Do you have a cough?: No Do you have any weakness?: Yes Do you have any diarrhea?: No Are you experiencing any unusual bleeding?: No Do you have any muscle aches/pain?: No Do you have any abdominal pain?: Yes Are you experiencing loss of taste or smell?: No Other Medical History Have you received the Flu Vaccine for this season: No Have you received the Pneumonia Vaccine: No ROS Obtained: Yes All systems reviewed & no additional complaints except as documented Physical Exam General General appearance: alert and in no apparent distress Head Head exam: atraumatic and normocephalic Eye Eye exam: Present normal appearance, PERRL and EOMI ENT ENT exam: Present normal oropharynx and normal external ear exam Neck Neck exam: Present normal inspection and full ROM Chest Chest inspection: Present normal inspection and symmetric chest wall rise; Absent tenderness Respiratory Respiratory exam: Present normal lung sounds bilaterally; Absent respiratory distress Cardiovascular Cardiovascular exam: Present regular rate and normal rhythm Abdominal Exam Abdominal exam: Present soft and tenderness (Mild, generalized); Absent distention or guarding Extremities Exam Extremities exam: Present normal inspection; Absent edema or joint swelling Back Exam Back exam: Present normal inspection; Absent tenderness Neurological Exam Neurological exam: Present alert and oriented X3; Absent motor sensory deficit Psychiatric Psychiatric exam: Present normal affect and normal mood Skin Skin exam: Present warm, dry and normal color Lymphatic Lymphatic Findings: no adenopathy Medical Decision Making Medical Records Medical records reviewed: Yes I reviewed the patient's medical records. Screening: Per USPSTF and CDC recommendations, given the prevalence of disease in our region, it is our hospital?s policy to screen for HIV and viral Hepatitis for all patients aged 18 and over and those with ongoing risk factors. Beto Inquiry Pt receiving controlled substance: No Beto was queried for this patient: No Vital Signs: 02/05/25 00:18 02/05/25 00:28 02/05/25 01:03 Temperature 98.9 F Temperature Source Oral Pulse Rate 105 H Pulse Rate [Right] 105 H Respiratory Rate 20 12 Blood Pressure 197/98 H 183/82 H Blood Pressure [Right Arm] 205/92 H Blood Pressure Mean [Right Arm] 129 02 Sat by Pulse Oximetry 99 99 Oxygen Delivery Method Room Air Room Air 02/05/25 02:44 02/05/25 03:07 Temperature 98.9 F Temperature Source Pulse Rate 92 H 93 H Pulse Rate [Right] Respiratory Rate 10 L 12 Blood Pressure 135/79 161/84 H Blood Pressure [Right Arm] Blood Pressure Mean [Right Arm] 02 Sat by Pulse Oximetry 94 L Oxygen Delivery Method Room Air Room Air Lab Data Lab results reviewed: Yes I reviewed the patient's lab results. Lab Results 02/05/25 00:54: WBC 18.5 H, RBC 4.40, Hgb 13.0, Hct 40.3, MCV 91.6, MCH 29.5, MCHC 32.3, RDW 13.3, Plt Count 576 H, MPV 8.9, Neut % (Auto) 85.1 H, Lymph % (Auto) 8.2 L, Kimble % (Auto) 4.4, Eos % (Auto) 1.2, Baso % (Auto) 0.6, Neut # (Auto) 15.7 H, Lymph # (Auto) 1.5, Kimble # (Auto) 0.8, Eos # (Auto) 0.2, Baso # (Auto) 0.1, Sodium 135 L, Potassium 4.1, Chloride 101, Carbon Dioxide 24, Anion Gap 14.1, BUN 22 H, Creatinine 1.10 H, Estimated Creat Clear 54, Estimated GFR 49 L, Est GFR ( Amer) 59, Glucose 167 H, Calcium 9.6, Magnesium 1.6, Total Bilirubin 0.5, AST 30, ALT 23, Alkaline Phosphatase 127 H, Troponin I < 0.01, NT-Pro-B Natriuret Pep 49.8, Total Protein 7.9, Albumin 5.2 H, Globulin 2.7, Albumin/Globulin Ratio 1.9 H, Lipase 47 02/05/25 01:45: Urine Color Yellow, Urine Appearance Clear, Urine pH 6.0, Ur Specific [place] 1.010, Urine Protein Trace, Urine Glucose (UA) Negative, Urine Ketones Negative, Urine Blood Negative, Urine Nitrate Negative, Urine Bilirubin Negative, Urine Urobilinogen 0.2, Ur Leukocyte Esterase Trace, Urine WBC 3-5, Ur Squamous Epith Cells 5-10 02/05/25 00:54 02/05/25 00:54 Orders (Tests/Meds): ED MEDICATIONS Generic Name Dose Route Start Last Admin Trade Name Rhiannon PRN Reason Stop Dose Admin Sodium Chloride 10 ml 02/05/25 01:35 02/05/25 01:35 Sodium Chloride 0.9% 10ml Syr (Rad Only) IV 03/07/25 01:34 10 ml NEEDED PRN Administration Maintain IV Site Discontinued Medications Generic Name Dose Route Start Last Admin Trade Name Rhiannon PRN Reason Stop Dose Admin Hydralazine HCl 10 mg 02/05/25 02:29 02/05/25 02:38 Hydralazine 10mg Tablet PO 02/05/25 02:30 10 mg ONCE ONE Administration Hydromorphone HCl 1 mg 02/05/25 00:43 02/05/25 01:02 Hydromorphone 2mg/Ml Syringe IV 02/05/25 00:44 1 mg ONCE ONE Administration Iopamidol 75 ml 02/05/25 01:35 02/05/25 01:35 Iopamidol-370 (76%);100ml Bottle IV 02/05/25 01:36 75 ml ONCE ONE Administration Labetalol HCl 10 mg 02/05/25 00:43 02/05/25 01:03 Labetalol 20mg/4ml Syringe IV 02/05/25 00:44 10 mg ONCE ONE Administration Ondansetron HCl 4 mg 02/05/25 00:47 02/05/25 01:02 Ondansetron 4mg/2ml Vial IV 02/05/25 00:48 4 mg ONCE ONE Administration Oxycodone HCl 5 mg 02/05/25 02:26 02/05/25 02:38 Oxycodone 5mg Immediate Release Tablet PO 02/05/25 02:27 5 mg ONCE ONE Administration ORDERS Category Date Time Status CT abdomen pelvis w con Stat Cat Scan 02/05/25 00:43 Completed BNP [NT Pro Brain Natriuretic Pep.] Stat Lab 02/05/25 00:54 Completed CBC w/Auto Diff [Complete Blood Count Auto Diff] Stat Lab 02/05/25 00:54 Completed CMP [Comprehensive Metabolic Panel] Stat Lab 02/05/25 00:54 Completed Diarrhea 23 Panel, PCR Stat Lab 02/05/25 02:44 Received Lipase Stat Lab 02/05/25 00:54 Completed Magnesium Stat Lab 02/05/25 00:54 Completed Troponin I Q3H Lab 02/05/25 00:54 Completed Troponin I Q3H Lab 02/05/25 03:45 Ordered UA [Urinalysis and Microscopic] Stat Lab 02/05/25 01:45 Completed HEART Score History (anamnesis): Slightly suspicious ECG: Normal Age: >65 years Risk factors: 1-2 risk factors Troponin: </= normal limit HEART Score: 3 Medical Decision Narrative: 74-year-old female with history of hypertension, recent episode of posterior reversible encephalopathy syndrome, presents for hypertension and abdominal pain. History was obtained via interactive discussion with patient, family, chart review. On arrival, patient is afebrile, hypertensive with systolics over 200, satting appropriately, GCS 15,, moving all extremities spontaneously. Full physical exam performed and significant for mild abdominal tenderness Differential includes but is not limited to hypertensive urgency, hypertensive emergency, PRES, enteritis, bowel obstruction,. Patient was given 1 mg of Dilaudid, 10 mg of IV labetalol, Zofran for symptomatic management and correction of underlying abnormalities. Workup initiated including CBC CMP EKG troponin CT abdomen pelvis IV contrast. On re-evaluation, patient blood pressure markedly improved. In the 130s and 140s systolic. Pain improved. Laboratory workup independently interpreted by me and significant for urinalysis without significant evidence of infection, negative initial troponin, no significant electrolyte derangement, negative lipase, leukocytosis with white count of 18.. Imaging independently interpreted by me and significant for findings consistent with enteritis, inflammation of the small bowel noted with large fluid burden, no evidence of obstruction. See radiology read for full review of final results. EKG independently interpreted by me and significant for sinus rhythm, rate of 86, no significant ST changes, interpreted at 0120. Given patient history, exam and workup, patient's presentation most likely represents abdominal pain and hypertension secondary to enteritis, likely worsened because patient took Lomotil. Her blood pressure was significantly elevated, but is improved after interventions for pain and 1 dose of labetalol. She has no evidence of PRES or other hypertensive emergency at this time. Given she is continue to have elevated blood pressures at home despite her recent medication adjustments, I am going to start her on hydralazine until she can follow-up with her family doctor on Sunday. We sent a diarrhea panel to assess for C. difficile and other bacterial pathology. We will call with results if it is positive. Procedures Risk/Benefits of Procedure(s) Were Explained: Yes Critical Care Critical Care Time Critical Care Time: No
[2025-02-05 01:02] LABS: Hematocrit 40.3 % (37.0-47.0); Hemoglobin 13.0 g/dL (12.2-16.2); Immature Granulocytes % 0.5 %; Mean Corpuscular HGB Conc 32.3 g/dL (31.8-35.4); Mean Corpuscular Hemoglobin 29.5 pg (27.0-31.2); Mean Corpuscular Volume 91.6 fl (81-99); Nucleated Red Blood Cells % 0 %; Platelet Count 576 K/mm3 (142-424); Red Blood Count 4.40 M/mm3 (4.20-5.40); Red Cell Distribution Width-SD 44.8 fL; White Blood Count 18.5 K/mm3 (4.8-10.8)
[2025-02-05] MEDS: ONDANSETRON 4MG/2ML VIAL 4 MG IV (01:02)
[2025-02-05] MEDS: HYDROMORPHONE 2MG/ML SYRINGE 1 MG IV (01:02)
[2025-02-05 01:03] VITALS: BP 183/82
[2025-02-05] MEDS: LABETALOL 20MG/4ML SYRINGE 10 MG IV (01:03)
[2025-02-05 01:08] LABS: Albumin Level 5.2 g/dl (3.5-5.0); Chloride 101 mmol/L (98-107); Potassium 4.1 mmoL/L (3.5-5.1); Sodium 135 mmol/L (136-145)
[2025-02-05 01:10] LABS: Blood Urea Nitrogen 22 mg/dl (7-17); Creatinine Clearance Estimated 54 mL/min (50-200); Creatinine,Serum 1.10 mg/dl (0.52-1.04); Estimated Glomerular Filt Rate 49 ml/min (>60); GFR (African American) 59 ML/MIN (>60)
[2025-02-05 01:11] LABS: Alanine Aminotransferase 23 U/L (12-78); Albumin/Globulin Ratio 1.9 (1.1-1.8); Alkaline Phosphatase 127 U/L (38-126); Anion Gap 14.1 mEq/L (5-15); Aspartate Amino Transferase 30 U/L (14-36); Bilirubin,Total 0.5 mg/dl (0.2-1.3); Calcium 9.6 mg/dl (8.4-10.2); Carbon Dioxide 24 mmol/L (22.0-30.0); Globulin 2.7 g/dL (1.3-3.2); Glucose 167 mg/dl (74-100); Lipase 47 U/L (23-300); Magnesium 1.6 mg/dl (1.6-2.3); Total Protein,Serum 7.9 g/dl (6.3-8.2)
[2025-02-05 01:20] LABS: NT Pro Brain Natriuretic Pep. 49.8 pg/mL (0-125)
--- NOTE | 2025-02-05 01:20 | ECG_ITS ---
APPROVED REPORT Exam: Resting ECG HR:86 bpm ECG Measurements Heart Rate 86 AXES MD 149 P 64 QRSd 87 QRS 67 QT 386 T 76 QTc 429 Conclusion SINUS RHYTHM WITH OCCASIONAL SUPRAVENTRICULAR PREMATURE COMPLEXES BORDERLINE ECG UNCONFIRMED REPORT Electronically signed by : ZHANE WOLFE, 02/08/2025 02:14:36
[2025-02-05] MEDS: IOPAMIDOL-370 (76%);100ML BOTTLE 75 ML IV (01:35)
[2025-02-05] MEDS: SODIUM CHLORIDE 0.9% 10ML SYR (RAD ONLY) 10 ML IV (01:35)
[2025-02-05 01:38] LABS: Troponin I < 0.01 ng/ml (0.00-0.034)
[2025-02-05 01:52] LABS: Microscopic, Urine URINE MICROSCOPIC (MICROSCOPIC)
[2025-02-05 01:53] LABS: Bilirubin,Urine Negative (Negative); Color,Urine YELLOW (Yellow); Glucose,Urine (UA) Negative (Negative); Ketones,Urine Negative (Negative); Leukocyte Esterase,Urine TRACE (Negative); PH,Urine 6.0 (5.0-8.5); Protein,Urine TRACE (Negative); Specific Gravity, Urine 1.010 (1.005-1.030); Urobilinogen,Urine 0.2 EU/dl (0.2)
[2025-02-05] MEDS: HYDRALAZINE 10MG TABLET 10 MG PO (02:38)
[2025-02-05] MEDS: OXYCODONE 5MG IMMEDIATE RELEASE TABLET 5 MG PO (02:38)
[2025-02-05 02:44] VITALS: BP 135/79; PULSE 92; RESP 10; O2SAT 94
[2025-02-05 02:46] LABS: Adenovirus F 40/41, stool Not Detected (NotDetected); Clostridium Difficile A/B, PCR Not Detected (NotDetected); Cyclospora Cayetanesis Not Detected (NotDetected); Plesimonas Shigalloides, PCR Not Detected (NotDetected); Salmonella, PCR Not Detected (NotDetected); Shiga-like toxin E coli Not Detected (NotDetected); Shigella Enterovasive E coli Not Detected (NotDetected); Vibrio, PCR Not Detected (NotDetected); Yersinia Entercolitica, PCR Not Detected (NotDetected)
[2025-02-05 03:07] VITALS: BP 161/84; PULSE 93; RESP 12; TEMP 37.2; O2SAT 95
== END 2025-02-05 03:18 | disposition home or self-care (01) ==
PROVIDERS: Emergency Provider Emergency Medicine; PCP Family Medicine
DX: R10.84 Generalized abdominal pain (principal); K52.9 Noninfective gastroenteritis and colitis, unspecified; I10 Essential (primary) hypertension; R11.0 Nausea; Z93.2 Ileostomy status
CPT/HCPCS: 74177; 80053; 81001; 83690; 83735; 83880; 84484; 85025; 87507; 93005; 96374; 96375; 99285; J1171; J1920; J2405; Q9967

== ENCOUNTER 2025-02-05 14:39 | Observation (INO) | payer MEDICARE, SELFPAY ==
--- OUTSIDE RECORDS SUMMARY | 2025-01-19 09:00 | XMS_ITS | Encounter Summary ---
Author Organization Healthcare Address [address] [place] [address] Care Team Providers Care Supervisor [employer] Name Role Phone Timothy Granda Primary Care Provider [phone] Reason for Referral * Consultation (Routine) - Authorized Specialty Diagnoses / Procedures Referred By Kendal quinones Referred To Contact Diagnoses Acute kidney injury Vitamin D deficiency Gutierrez Domínguez MD [address] [place] [address] Phone: tel: fax: Referral ID Status Reason Start Date Expiration Date V isits Requested Visits Authorized [id number] Authorized 01/19/2025 07/21/2026 1 1 Reason for Visit * Reason Comments Consult Encounter Details Date Type Department Care Team (Latest Contact Info) Description 01/19/2025 10:00 AM EDT Office Visit [facility] Nephrology, Bone & Mineral Metabolism [address], [address] [place] [address] Gutierrez Domínguez MD [address] [place] [phone] Acute kidney injury (Primary Dx); Vitamin [...] drink first t mini in the morning (EYE[employer]PS[employer]) to steady your nerves or to get rid of a hangover? 0 11/15/2023 CAGE Questionnaire Score 0 024 Utilities Answer Date Recorded In the past 12 months has th e [employer], gas, oil, or water company threatened to [...] Social Connections: Low Risk (04/12/2023) Received from [facility] ([place], [place], [place], [place]) Family and Community [...] Results Component Value Date TSH 1.72 07/22/2023 [id number] 78 (L) 09/01/2022 FREET4 1.5 07/22/2023 Imaging: [...] 2024 Electrolytes, acid/base, volume status wnl Urine: [place] Anatomy: normal appearing kidneys on CT abdomen [...] laboratory studies in the chart and at [facility] over the past several years. She has [...] months Gutierrez Domínguez MD Division of Nephrology [facility] Counseling Documentation: The patient was counseled regarding COUNSELING TOPICS: diagnostic results, prognosis, risks and benefit of treatment options, risk factor reductions, instructions for management, patient and family education, medication changes, diagnostic impressions, Heart healthy diet, regular physical activity and weight control, Avoidance of NSAIDs and other nephrotoxins, and penitentiary nature of condition. Education provided was verbal [...] Expiration Date: 07/23/2026 [facility] Urinalysis with reflex microscopic (Culture NOT Included) Standing Status: Future Expected Date: 07/18/2025 Expiration Date: 07/23/2026 [facility]: Immediate Vitamin D 25 Hydroxy Standing Status: Future Expected Date: 07/18/2025 Expiration Date: 07/23/2026 [facility]: Immediate PTH Intact Total Standing Status: Future Expected Date: 07/18/2025 Expiration Date: 07/23/2026 [facility] Albumin-creatinine ratio, urine, random Standing Status: Future Expected Date: 07/18/2025 Expiration Date: 07/23/2026 [facility] Protein, Random, Urine with Creatinine Standing Status: Future Expected Date: 07/18/2025 Expiration Date: 07/23/2026 [facility]: Immediate Renal Function Panel, Plasma Standing Status: Future Expected Date: 07/18/2025 Expiration Date: 07/23/2026 Release [facility]: Immediate Cystatin C Standing Status: Future Expected Date: 07/21/2025 Expiration Date: 07/24/2026 [facility] [1] Follow Up Nephrology Standing [...] [1] Past Medical History: Diagnosis Date A-fib ([facility]) Abnormal findings on diagnostic imaging of other specified body structures Thickened endometrium TIP (acute kidney injury) ([facility]) 08/04/2022 Cr 1.38 on admission baseline .9 [...] disorders History of depression Protein calorie malnutrition ([facility]) 08/14/2022 Pt on TPN during previous admission, no evidence of continuing condition during this admission Sepsis, due to unspecified organism, unspecified whether acute organ dysfunction present ([facility]) 07/22/2023 Severe protein-calorie malnutrition ([facility]) 08/14/22 PICC and TPNEnteral tube feeds via GJ Venous disease 08/04/2022 History of b/l venous iliac stents - on Eliquis [2] Patient Active Problem List Diagnosis Hx of Clostridium difficile infection Hypertension Hypothyroidism Paroxysmal atrial fibrillation ([facility]) Dysphagia Ileostomy in place ([facility]) Diverticulosis Intra-abdominal fluid collection Functional diarrhea Small [...] Social Connections: Low Risk (04/12/2023) Received from [facility] ([place], [place], [place], [place]) Family and Community [...] Results Component Value Date TSH 1.72 07/22/2023 [id number] 78 (L) 09/01/2022 FREET4 1.5 07/22/2023 Imaging: [...] 2024 Electrolytes, acid/base, volume status wnl Urine: [place] Anatomy: normal appearing kidneys on CT abdomen [...] laboratory studies in the chart and at [facility] over the past several years. She has [...] months Gutierrez Domínguez MD Division of Nephrology [facility] Counseling Documentation: The patient was counseled regarding COUNSELING TOPICS: diagnostic results, prognosis, risks and benefit of treatment options, risk factor reductions, instructions for management, patient and family education, medication changes, diagnostic impressions, Heart healthy diet, regular physical activity and weight control, Avoidance of NSAIDs and other nephrotoxins, and penitentiary nature of condition. Education provided was verbal [...] Expiration Date: 07/23/2026 [facility]: Immediate Urinalysis with reflex microscopic (Culture NOT Included) Standing Status: Future Expected Date: 07/18/2025 Expiration Date: 07/23/2026 Release [facility]: Immediate Vitamin D 25 Hydroxy Standing Status: Future Expected Date: 07/18/2025 Expiration Date: 07/23/2026 Release [facility]: Immediate PTH Intact Total Standing Status: Future Expected Date: 07/18/2025 Expiration Date: 07/23/2026 Release [facility]: Immediate Albumin-creatinine ratio, urine, random Standing Status: Future Expected Date: 07/18/2025 Expiration Date: 07/23/2026 Release [facility]: Immediate Protein, Random, Urine with Creatinine Standing Status: Future Expected Date: 07/18/2025 Expiration Date: 07/23/2026 Release [facility]: Immediate Renal Function Panel, Plasma Standing Status: Future Expected Date: 07/18/2025 Expiration Date: 07/23/2026 Release [facility]: Immediate Cystatin C Standing Status: Future Expected Date: 07/21/2025 Expiration Date: 07/24/2026 Release [facility]: Immediate [1] Follow Up Nephrology Standing Status: [...] C CKD stage 3a, GFR 45-59 ml/min ([facility]) Relevant Medications atorvastatin (Lipitor) 40 MG tablet furosemide (Lasix) 40 MG tablet Other Relevant Orders Cystatin C Chronic kidney disease-mineral and bone disorder (CKD-MBD) Relevant Medications atorvastatin (Lipitor) 40 MG tablet furosemide (Lasix) 40 MG tablet Secondary hyperparathyroidism of renal origin ([facility]) Hyperlipidemia Relevant Medications atorvastatin (Lipitor) 40 MG [...] disorders History of depression Protein calorie malnutrition ([facility]) 08/14/2022 Pt on TPN during previous admission, [...] Acute kidney injury Hypothyroidism Paroxysmal atrial fibrillation ([facility]) Dysphagia Ileostomy in place ([facility]) Diverticulosis Intra-abdominal fluid collection Functional diarrhea Small bowel stricture Vitamin D deficiency CKD stage 3a, GFR 45-59 ml/min ([facility]) Chronic kidney disease-mineral and bone disorder (CKD-MBD) Secondary hyperparathyroidism of renal origin ([facility]) Hyperlipidemia [3] Past Surgical History: Procedure Laterality Date BREAST LUMPECTOMY Left Left Breast Lumpectomy from [facility] SECTION, LOW TRANSVERSE N/A Section from [facility] ILEOSTOMY N/A ILEOSTOMY 09/10/2023 Ex Lap, small bowel resection x 2, creation of end ilesotomy ILEOSTOMY CLOSURE 05/24/2023 open closure of end ileostomy with ileosigmoid anastomosis. TOTAL HIP ARTHROPLASTY N/A Total Hip Replacement from [facility] TOTAL SHOULDER ARTHROPLASTY N/A Shoulder Arthroplasty Total Shoulder Replacement from [facility] TUBAL LIGATION N/A Tubal Ligation from [facility] [4] Family History Problem Relation Name Age [...] Upcoming Encounters Date Type Department Care Team ([facility] st Contact Info) Description 07/20/2025 10:40 AM EDT Office Visit [facility] Nephrology, Bone & Mineral Metabolism [address], [address] [place] [address] Gutierrez Domínguez MD [address] [place] [address] Scheduled Orders Name Type Priority Associated Diagnoses Orde r Schedule CBC W/O Differential Lab Routine Acute kidney injury ([facility]) Vitamin D deficiency Expected: 07/18/2025 (Approximate), Expires: [...] deficiency CKD stage 3a, GFR 45-59 ml/min ([facility]) Expected: 07/21/2025 (Approximate), Expires: 07/24/2026 Scheduled Referrals Name Type Priority Associated Diagnoses Order Schedule Follow Up Nephrology Outpatient Referral Routine Acute kidney injury ([facility]) Vitamin D deficiency Expected: 07/20/2025 (Approximate), Expires: 02/19/2026 documented as of this encounter Visit Diagnoses Diagnosis Acute kidney injury- Primary Vitamin D deficiency CKD stage 3a, GFR 45-59 ml/min ([facility]) Chronic kidney disease-mineral and bone disorder (CKD-MBD) Secondary hyperparathyroidism of renal origin ([facility]) Secondary hyperparathyroidism (of renal origin) Hypertension, unspecified type Hyperlipidemia, unspecified hyperlipidemia type documented in this encounter Additional Health Concerns Assessment Noted Time A fall risk assessment has been complete d for the patient 01/19/2025 10:00 AM EDT A Body Mass Index follow-up plan has been documented for the patient 01/20/2025 11:25 AM EDT documented as of this encounter Care Teams Supervisor [employer] Relationship Specialty Start Date End Date Timothy Granda DO [address] [place] [address] PCP - General 05/25/23 documented as of this encounter
--- OUTSIDE RECORDS SUMMARY | 2025-01-26 00:09 | XMS_ITS | Encounter Summary ---
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 Name Role Phone Connor Gomez MD Primary Care Provider [phone] Reason for Visit * Auth/Cert Specialty Diagnoses / Procedures Referred By Contac t Referred To Contact Diagnoses Seizures Possible CVA Referral ID Status Reason Start Date Expiration Date Visits Re quested Visits Authorized [id number] 1 1 Encounter Details Date Type Department Care Team (Late st Contact Info) Description 01/26/2025 1:09 AM EDT - 01/29/2025 2:01 PM EDT Hospital Encounter [facility] [address] [place] [id number] Rayshawn Baldwin MD [address] [place] [address] Andrew Barkley MD [address] [place] [address] Meli Hernandez MD [address] [address] Jessica Valdovinos DO [address] [facility] [address] [place] [address] Cognitive communication deficit (Primary Dx); PRES (posterior reversible encephalopathy syndrome); Irritable bowel syndrome with diarrhea Discharge Disposition: Home or Self Care Social History Tobacco Use Types Packs/Day Years Used Date Smoking Tobacco: Former Cigarettes 0.5 5 0 04/02/2004 - 04/02/2009 Smokeless Tobacco: Never Tobacco Cessation:Counseling Given: Not Answered Alcohol Use Standard Drinks/Week Comments Not Currently 0 (1 standard drink = 0.6 oz pur e alcohol) rarely PHQ-2 Answer Date Recorded Retired PHQ-9: Brief Depression Severity Measure Score 4 03/13/2022 AUDIT-C Answer Date Recorded Q1: How often do you have a drink containing alcohol? Never 01/27/2025 Q2: How many drinks containi ng alcohol do you have on a typical day when you are drinking? Patient does not drink Q3: How often do you have si x or more drinks on one occasion? Never 01/27/2025 Overall Financial Resource Strain (CARDIA) Answe r Date Recorded How hard is it for you to pa y for the very basics like food, housing, medical care, and heating? Patient unable to answer 01/26/2025 [facility] - Occupational Stress Questionnaire Answer Date Recorded Do you feel stress - tense, restless, nervous, or anxious, or unable to sleep at night because your mind is troubled all the time - these days? Patient unable to answer 01/26/2025 Exercise Vital Sign Answer Date Recorde d On average, how many days pe r week do you engage in moderate to strenuous exercise (like a brisk walk)? Patient unable to answer 01/26/2025 On average, how many minutes do you engage in exercise at this level? Patient unable to answer 01/26/2025 Hunger Vital Sign Answer Date Recorded Within the past 12 months, y ou worried that your food would run out before you got the money to buy more. Never true 01/27/20 25 Within the past 12 months, t he food you bought just didn't last and you didn't have money to get more. Never true 01/26/2025 PRAPARE - Transportation Answer Date Re corded In the past 12 months, has l ack of transportation kept you from medical appointments or from getting medications? No 01/01 In the past 12 months, has l ack of transportation kept you from meetings, work, or from getting things needed for daily living? No 01/26/2025 [facility] Utilities Answer Date Recorded In the past 12 months has th e electric, gas, oil, or water company threatened to shut off services in your home? No 01/26/2025 Abuse Screen Answer Date Recorded Feels Unsafe at Home or Work/School no 01/27/2025 Feels Threatened by Someone no 01/01 Does Anyone Try to Keep You From Having Contact with Others or Doing Things Outside Your Home? no 01/27/2025 Physical Signs of Abuse Present no 01/27/2025 Housing Stability Answer Date Recorded Current Living Arrangements home 01/01 Potentially Unsafe Housing Conditions unable to assess 01/26/2025 Family and Community Support Answer Lang e Recorded If for any reason you need h elp with day-to-day activities such as bathing, preparing meals, shopping, managing finances, etc., do you get the help you need? Patient unable to answer 01/26/2025 How often do you feel lonely or isolated from those around you? Patient unable to answer 01/26/2025 Employment Answer Date Recorded Do you want help finding or keeping work or a job? Patient unable to answer 01/26/2025 Disabilities Answer Date Recorded Difficulty Concentrating, Remembering or Making Decisions no 01/27/2025 Difficulty Managing Errands Independently no 01/27/2025 Education Answer Date Recorded Do you want help with school or training? For example, starting or completing job training or getting a high school diploma, GED or equivalent Patient unable to answer 01/26/2025 Preferred Language [place] Zealander 01/26/2025 Comments No Sex and Gender Information Value Date Recorded Sex Assigned at Not on file Legal Sex Female 10:14 AM EST Gender Identity Not on file Sexual Orientation Not on file documented as of this encounter Last Filed Vital Signs Vital Sign Reading Time Taken Comments Blood Pressure 171/93 01/29/2025 8:32 AM EDT Pulse 92 01/29/2025 8:32 AM EDT Temperature 37 C (98.6 F) 01/29/2025 7:30 AM EDT Respiratory Rate 16 01/29/2025 7:30 AM EDT Oxygen Saturation 94% 01/29/2025 7:30 AM EDT Inhaled Oxygen Concentration - - Weight 81.1 kg (178 lb 12.7 oz) 01/27/2025 6:00 AM EDT Height 160 cm (5' 2.99 ) 01/26/2025 11: 26 AM EDT Body Mass Index 31.68 01/26/2025 11:26 AM EDT documented in this encounter Functional Status * Question Answer Date of Assessment Author 1. Wish to be (Past 1 Month) No 025 6:19 AM EDT Minnie Castillo RN 2. Non-Specific Active Suici charles Thoughts (Past 1 Month) No 01/27/2025 6:19 AM EDT Minnie Castillo RN * Calculated C-SSRS Risk Score (Lifetime/Recent) Answer Date of Assessment Author No Risk Indicated 01/27/2025 6:19 AM EDT Minnie Castillo RN documented as of this encounter Discharge Summaries * Jessica Valdovinos, DO - 01/29/2025 7:20 AM EDT Images from the original note were not included. [facility] Medicine Services DISCHARGE SUMMARY Patient Name: Farrah Atkinson : 1950 Date of Admission: 01/26/2025 1:09 AM Date of Discharge: 01/29/2025 Primary Care Physician: Connor Gomez MD Consults Date and Time Order Name Status Description 01/26/2025 9:13 AM Inpatient Infectious Diseases Consult Completed 01/26/2025 7:50 AM Inpatient Neurology Consult General Completed Hospital Course Presenting Problem: Hypertensive emergency, drug overdose Active Hospital Problems Diagnosis POA PRES (posterior reversible encephalopathy syndrome) [I67.83] Yes Resolved Hospital Problems No resolved problems to display. Hospital Course: Farrah Atkinson is a 74 y.o. female with history of CKD, hypertension, paroxysmal A-fib recurrentUTIs who was transferred from [facility] on 01/26 to ICU. Per chart review, the patient was found by her shortly after crushing and snorting pain pills. She was obtunded, treated with Narcan but subsequently experienced seizure-like event and was treated with Ativan. At OSH, she had CT head that showed possible subarachnoid hemorrhage versus artifact. There was also concern for meningitis and she underwent LP. At [facility], MRI of brain revealed motion artifact but also showed mild sulcal effacement predominantly involving the cortex of the bilateral occipital and parietal lobes. There was concern for possible PRES syndrome. Her blood pressure was significantly elevated and shewas treated with Precedex with improvement of agitation. She was transferred to telemetry floor on 01/27. Neurology is following Strokelike symptoms, improved Concern for possible subarachnoid hemorrhage at OSH - MRI brain on 01/27 showed findings concerning for possible press in the context of accelerated hypertension - Repeat MRI showed normalization TIP on CKD - Improved Concern for possible seizure after receiving Narcan - Neurology following - Continue Keppra Initial concern for meningitis - Monitor off antibiotics - Had LP at OSH Hypertension - BP meds adjusted, will need outpatient follow-up with PCP for blood pressure check next week Agitation - Required Precedex drip while in ICU -Improved Hypothyroidism - Continue Synthroid Discharge Follow Up Recommendations for outpatient labs/diagnostics: PCP in 1 week Day of Discharge HPI: Blood pressure better controlled, no complaints. Rehab recommended feels that she can do better at home Review of Systems Gen- No fevers, chills CV- No chest pain, palpitations Resp- No cough, dyspnea GI- No N/V/D, abd pain Vital Signs: Temp: [97.7 ??F (36.5 ??C)-98.6 ??F (37 ??C)] 98.6 ??F (37 ??C) Heart Rate: [80-101] 92 Resp: [16] 16 BP: (161-171)/(71-93) 171/93 Physical Exam: Constitutional: No acute distress, awakens easily HENT: NCAT, mucous membranes moist Respiratory: Respiratory effort normal Gastrointestinal: Soft, nontender, ostomy Musculoskeletal: No bilateral ankle edema Psychiatric: Appropriate affect, cooperative Neurologic: Oriented x 3, speech clear Skin: No rashes Pertinent and/or Most Recent Results LAB RESULTS: Lab 01/28/25 1034 01/27/25 0454 01/26/25 1044 01/26/25 0651 01/26/25 0209 WBC 12.20* 9.35 -- -- 18.88* HEMOGLOBIN 11.6* 10.2* -- -- 11.6* HEMATOCRIT 35.5 32.3* -- -- 35.6 PLATELETS 301 226 -- -- 411 NEUTROS ABS -- -- -- -- 16.24* EOS ABS -- -- -- -- 0.00 MCV 92.0 95.0 -- -- 89.4 PROCALCITONIN -- -- -- -- 0.15 LACTATE -- -- 1.9 2.2* 2.7* PROTIME -- -- -- -- 13.9 APTT -- -- -- -- 26.2 Lab 01/28/25 2151 01/28/25 1034 01/27/25 1845 01/27/25 0454 01/26/25 0651 01/26/25 0209 SODIUM -- 139 -- 141 -- 142 POTASSIUM 3.8 3.3* 3.8 3.2* -- 3.9 CHLORIDE -- 103 -- 107 -- 107 CO2 -- 20.6* -- 22.6 -- 21.1* ANION GAP -- 15.4* -- 11.4 -- 13.9 BUN -- 6.4* -- 10.9 -- 20.1 CREATININE -- 0.85 -- 0.96 -- 1.30* EGFR -- 72.4 -- 62.6 -- 43.5* GLUCOSE -- 117* -- 92 -- 154* CALCIUM -- 8.8 -- 8.6 -- 9.0 IONIZED CALCIUM -- -- -- -- -- 1.15 MAGNESIUM -- -- -- -- -- 2.1 PHOSPHORUS -- -- -- -- -- 3.6 HEMOGLOBIN A1C -- -- -- -- 5.67* -- TSH -- -- -- -- -- 1.430 Lab 01/26/25 020 TOTAL PROTEIN 6.9 ALBUMIN 4.0 GLOBULIN 2.9 ALT (SGPT) 19 AST (SGOT) 30 BILIRUBIN 0.4 ALK PHOS 120* LIPASE 20 Lab 01/26/25 0328 01/26/25 020 HSTROP T 22* 23* PROTIME -- 13.9 INR -- 1.01 Lab 01/26/25 020 CHOLESTEROL 209* LDL CHOL 113* HDL CHOL 70* TRIGLYCERIDES 149 Brief Urine Lab Results (Last result in the past 365 days) Color Clarity Blood Leuk Est Nitrite Protein CREAT Urine HCG 01/26/25 0257 Yellow Clear Moderate (2+) Small (1+) Negative Trace Microbiology Results (last 10 days) Procedure Component Value - Date/Time Blood Culture - Blood, Arm, Right [[id number]] (Normal) Collected: 01/25/25 1405 Lab Status: Preliminary result Specimen: Blood from Arm, Right Updated: 01/29/25314 Blood Culture No growth at 3 days Blood Culture - Blood, Blood, Port [[id number]] (Normal) Collected: 01/25/25 1400 Lab Status: Preliminary result Specimen: Blood, Port Updated: 01/29/25314 Blood Culture No growth at 3 days MRI Brain With Contrast Result Date: 01/27/2025 MRI BRAIN W CONTRAST Date of Exam: 01/27/2025 1:27 AM EDT Indication: Changes on MRI. Comparison: MRI from 01/26/2025 Technique: Routine multiplanar/multisequence sequence images of the brain were obtained after the uneventful administration of 8 mL Vueway. Findings: Contrast-enhanced images as supplement to earlier noncontrast exams fail to demonstrate pathologic contrast enhancement. The intracranial vascular structures and meninges have a normal contrast enhancement. 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 Metabolic disorder ornonspecific cerebritis would be included in the differential. Impression: No pathologic contrast enhancement. 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 Electronically Signed: Jesus Peterson MD 01/27/2025 2:05 AM EDT Workstation ID: [id number] EEG Result Date: 01/26/2025 Reason for referral: 74 y.o.female with seizure-like activity Technical Summary: A 19 channel digital EEG was performed using the international 10-20 placement system, including eye leads and EKG leads. Duration: 20 minutes Findings: The patient is resting in bed and appears drowsy. The background shows diffuse 4 to 6 Hz intermixed delta and theta activity. Photic stimulation does not change the background. IV pump artifact is prominent throughout. As a study proceeds, occasional bursts of intermixed slower 3 Hz generalized delta are noted. No focal features or epileptiform activity are seen.Video: Available Technical quality: Good Rhythm strip: Regular, 80 bpm SUMMARY: Mild-moderate generalized slow No focal features or epileptiform activity are seen Diffuse cerebral dysfunction of at least mild degree, nonspecific but most commonly seen due to toxic/metabolic cause No ongoing seizures are present This report is transcribed using the Finco dictation system. MRI Brain Without Contrast Result Date: 01/26/2025 MRI BRAIN WO CONTRAST Date of Exam: 01/26/2025 4:30 AM EDT Indication: Stroke, follow up Altered mental status, reported suspicion for SAH on OSH CT imaging. Comparison: CT 01/26/2025 and prior Technique: Routine multiplanar/multisequence sequence images of the brain were obtained without contrast administration. Findings: There is motion limitation. No acute diffusion restriction abnormality noted within the limitations of the study. No definite acute intracranial hemorrhage noted within the limitations of the exam. Midline structures of the brain, pituitary and sellar structures and craniocervical junction are grossly unremarkable. Mild increased cortical signal on FLAIR and T2 weighted imaging with associated sulcal effacement. Findings are seen along the vertex of the brain. Midline involving the parietal and frontal lobe on the left and involving the more posterior aspects of the parenchyma on the right. Changes are also noted more posteriorly involving the bilateral parietal andoccipital lobes. Major intracranial flow voids are grossly patent. Globes and orbits are grossly unremarkable in appearance. Paranasal sinuses appear grossly clear. Mastoid air cells demonstrate no acute abnormality Impression: 1. Study is limited by motion 2. Diffusion weighted imaging demonstrates no acute diffusion restriction abnormality. 3. Increased FLAIR and T2 weighted signal with associated mild sulcal effacement involving predominantly the cortex of the bilateral occipital and parietal lobes with mild anterior extension involving the frontal lobes on the left. Findings are nonspecific and may represent PRES.. Underlying infection/encephalitis, cerebritis as well as metabolic disorders also a consideration. Please correlate clinically. Consider repeat imaging with contrast as clinically indicated. 4. No definite intracranial hemorrhage identified within the limitations of the exam. Electronically Signed: Johann Ramos MD 01/26/2025 6:37 AM EDT Workstation ID: [id number] CT Outside Head Result Date: 01/26/2025 This procedure was auto-finalized with no dictation required. CT Outside Spine Result Date: 01/26/2025 This procedure was auto-finalized with no dictation required. CT Outside Spine Result Date: 01/26/2025 This procedure was auto-finalized with no dictation required. CT Outside Spine Result Date: 01/26/2025 This procedure was auto-finalized with no dictation required. CT Outside Abd/Pelvis Result Date: 01/26/2025 This procedure was auto-finalized with no dictation required. CT Outside Abd/Pelvis Result Date: 01/26/2025 This procedure was auto-finalized with no dictation required. CT Outside Chest Result Date: 01/26/2025 This procedure was auto-finalized with no dictation required. CT Angiogram Neck Result Date: 01/26/2025 CT ANGIOGRAM NECK, CT ANGIOGRAM HEAD W AI ANALYSIS OF LVO Date of Exam: 01/26/2025 1:15 AM EDT Indication: AMS, poss. SAH. Comparison: None available. Technique: CTA of the head and neck neck was performed after the uneventful intravenous administration of iodinated contrast. Reconstructed coronal and sagittal images were also obtained. In addition, a 3-D volume rendered image was created for interpretation. Automated exposure control and iterative reconstruction methods were used. Findings: This exam is significantly limited by motion artifact. The neck vasculature is not adequately evaluated. The proximal great vessels and aortic arch appear unremarkable. The proximal and mid portions of the common carotid arteries appear normal. The mid portions of the internal carotid arteries and thecarotid bifurcation are suboptimally evaluated. The distal internal carotid arteries are widely patent. There is a normal appearance of the intracranial vasculature with no evidence of stenosis or ane urysm. There is no evidence of large vessel occlusion. Impression: Significantly limited exam due to motion artifact. The neck vasculature is not adequately evaluated. The intracranial vasculature is normal. There is no evidence of large vessel occlusion. Electronically Signed: Jesus Peterson MD 01/26/2025 1:54 AM EDT Workstation ID: [id number] CT Angiogram Head w AI Analysis of LVO Result Date: 01/26/2025 CT ANGIOGRAM NECK, CT ANGIOGRAM HEAD W AI ANALYSIS OF LVO Date of Exam: 01/26/2025 1:15 AM EDT Indication: AMS, poss. SAH. Comparison: None available. Technique: CTA of the head and neck neck was performed after the uneventful intravenous administration of iodinated contrast. Reconstructed coronal and sagittal images were also obtained. In addition, a 3-D volume rendered image was created for interpretation. Automated exposure control and iterative reconstruction methods were used. Findings: This exam is significantly limited by motion artifact. The neck vasculature is not adequately evaluated. The proximal great vessels and aortic arch appear unremarkable. The proximal and mid portions of the common carotid arteries appear normal. The mid portions of the internal carotid arteries and thecarotid bifurcation are suboptimally evaluated. The distal internal carotid arteries are widely patent. There is a normal appearance of the intracranial vasculature with no evidence of stenosis or ane urysm. There is no evidence of large vessel occlusion. Impression: Significantly limited exam due to motion artifact. The neck vasculature is not adequately evaluated. The intracranial vasculature is normal. There is no evidence of large vessel occlusion. Electronically Signed: Jesus Peterson MD 01/26/2025 1:54 AM EDT Workstation ID: [id number] CT Head Without Contrast Result Date: 01/26/2025 CT HEAD WO CONTRAST Date of Exam: 01/26/2025 1:15 AM EDT Indication: AMS, poss. SAH. Comparison: None available. Technique: Axial CT images were obtained of the head without contrast administration. Automated exposure control and iterative construction methods were used. Findings: There is no evidence of hemorrhage. There is no mass effect or midline shift. There is no extracerebral collection. Ventricles are normal in size and configuration for patient's stated age. Posterior fossa is within normal limits. Calvarium and skull base appear intact. Visualized sinuses show no air fluid levels. Visualized orbits are unremarkable. Impression: No acute intracranial abnormality. Electronically Signed: Jesus Peterson MD 01/26/2025 1:46 AM EDT Workstation ID: [id number] Results for orders placed during the hospital encounter of 01/26/25 Adult Transthoracic Echo Complete W/ Cont if Necessary Per Protocol (With Agitated Saline) 01/26/2025 8:46 PM Interpretation Summary Left ventricular systolic function is normal. Estimated left ventricular EF = 60% Left ventricular diastolic function is consistent with (grade I) impaired relaxation. Aortic sclerosis without recurrent aortic stenosis. Trace aortic regurgitation. Trace mitral regurgitation. Trace tricuspid regurgitation with normal RVSP. Saline test results are negative. I have personally reviewed the therapy plans: [] PT/OT/ ST Therapy Plans Plan for Follow-up of Pending Labs/Results: Pending Labs Order Current Status Blood Culture - Blood, Arm, Right Preliminary result Blood Culture - Blood, Blood, Port Preliminary result Discharge Details Discharge Medications New Medications Instructions Start Date levETIRAcetam 500 MG tablet Commonly known as: KEPPRA 500 mg, Oral, Every 12 Hours Scheduled Changes to Medications Instructions Start Date amLODIPine 10 MG tablet Commonly known as: NORVASC What changed: how much to take when to take this TAKE 1 TABLET BY MOUTH ONCE DAILY cloNIDine 0.1 MG tablet Commonly known as: CATAPRES What changed: when to take this reasons to take this 0.1 mg, Oral, Every 12 Hours Scheduled furosemide 40 MG tablet Commonly known as: LASIX What changed: when to take this reasons to take this TAKE ONE TABLET BY MOUTH EVERY DAY losartan 50 MG tablet Commonly known as: COZAAR What changed: medication strength how much to take when to take this 100 mg, Oral, Daily Continue These Medications Instructions Start Date amitriptyline 50 MG tablet Commonly known as: ELAVIL 50 mg, Oral, Nightly ARIPiprazole 2 MG tablet Commonly known as: ABILIFY 2 mg, Oral, Daily atorvastatin 20 MG tablet Commonly known as: LIPITOR 20 mg, Oral, Daily ciclopirox 0.77 % suspension Commonly known as: LOPROX 1 Application, Topical, Every 12 Hours Scheduled, Apply daily to affected toenail dicyclomine 10 MG capsule Commonly known as: BENTYL 10 mg, Oral, 3 Times Daily PRN diphenoxylate-atropine 2.5-0.025 MG per tablet Commonly known as: LOMOTIL 1 tablet, Oral, 4 Times Daily PRN DULoxetine 60 MG capsule Commonly known as: CYMBALTA 60 mg, Daily estradiol 0.25 MG/0.25GM gel 1 Application, Transdermal, Daily Fluticasone-Salmeterol 250-50 MCG/ACT DISKUS Commonly known as: ADVAIR/WIXELA 1 puff, Inhalation, 2 Times Daily HYDROmorphone 4 MG tablet Commonly known as: DILAUDID 4 mg, Oral, Every 4 Hours PRN levothyroxine 25 MCG tablet Commonly known as: SYNTHROID, LEVOTHROID 25 mcg, Oral, Every [employer] oxyCODONE 5 MG capsule Commonly known as: OXY-IR 5 mg, Oral, Every 4 Hours PRN tiZANidine 4 MG tablet Commonly known as: ZANAFLEX 4 mg, Oral, Every 8 Hours PRN tretinoin 0.05 % cream Commonly known as: RETIN-A 1 Application, Topical, Nightly tretinoin 10 MG chemo capsule Commonly known as: VESANOID Oral, 2 Times Daily vitamin D 1.25 MG (64578 UT) capsule capsule Commonly known as: ERGOCALCIFEROL 1 capsule, Oral, Weekly Stop These Medications sulfamethoxazole-trimethoprim 400-80 MG tablet Commonly known as: BACTRIM,SEPTRA sulfamethoxazole-trimethoprim 800-160 MG per tablet Commonly known as: BACTRIM DS,SEPTRA DS Allergies Allergen Reactions Nsaids GI Intolerance Quinolones Other (See Comments) Fluoroquinolones- knee tendon, extreme pain and risk of rupture. Discharge Disposition: Home or Self Care Diet: Hospital: Diet Order Procedures Diet: Cardiac; Healthy Heart (2-3 Na+); Texture: Regular (IDDSI 7); Fluid Consistency: Thin (IDDSI 0) PO meds as tolerated Standing Status: Standing Number of Occurrences: 1 Diets:: Cardiac Cardiac Diet:: Healthy Heart (2-3 Na+) Texture:: Regular (IDDSI 7) Fluid Consistency:: Thin (IDDSI 0) Activity: Restrictions or Other Recommendations: CODE STATUS: Code Status and Medical Interventions: CPR (Attempt to Resuscitate); Full Support Ordered at: 01/26/25 0308 Code Status (Patient has no pulse and is not breathing): CPR (Attempt to Resuscitate) Medical Interventions (Patient has pulse or is breathing): Full Support No future appointments. Additional Instructions for the Follow-ups that You Need to Schedule Discharge Follow-up with PCP As directed Currently Documented PCP: Connor Gomez MD PCP Follow Up Details: 1 week Jessica Valdovinos DO 01/29/25 Time Spent on Discharge: I spent 36 minutes on this discharge activity which included: [id number] with the patient, reviewing the data in the system, coordination of the care with the nursing staff as well as consultants, documentation, and entering orders. * Shabana Kim, OT Student - 01/28/2025 8:12 AM EDT Images from the original note were not included. Acute Care - Occupational Therapy Discharge [facility] Patient Name: Farrah Judgekarinalli : 1950 Today's Date: 01/28/2025 Admit Date: 01/26/2025 Visit Dx: ICD-10-CM ICD-9-CM 1. 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 Cholelithiasis Clostridium difficile infection 05/2017 hospitalized for 1 week Colon polyp 1989 First colonoscopy at age 36 resulted in removal iof 13 precancerous polyps[address] 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 Depression Headache 1989. Migraines became chronic and very diffucult to manage. Multiple treatment regimens were attempted. Some were helpful. Migraines ceased at menopause with few occasions thereafter. Heart murmur Hepatitis C history- currently tests negative by GI Hyperlipidemia Hypertension 2014 Drug treatment has been successful with a few recent episodic spijes in past 2-3 years. Hyponatremia, mild 07/19/2018 IBS (irritable bowel syndrome) Osteopenia 2001 Chronic, progressive cartilage breakdown. First total joint (L shoulder 2001). Since then have had all major joints replaced except L knee and R hip. R total hip scheduled 04/14/22. L knee to follow. Wears reading eyeglasses Past Surgical History: Procedure Laterality Date BUNIONECTOMY Bilateral x2 SECTION COLONOSCOPY 2014 ENDOSCOPY JOINT REPLACEMENT Previously covered. LAPAROSCOPIC TUBAL LIGATION TOTAL HIP ARTHROPLASTY Left TOTAL SHOULDER ARTHROPLASTY Left TOTAL SHOULDER ARTHROPLASTY Right 07/18/2018 Procedure: TOTAL SHOULDER ARTHROPLASTY RIGHT; Surgeon: Bautista Luis MD; Location: [facility]; Service: Orthopedics TUBAL ABDOMINAL LIGATION 1989 General Information Row Name 01/28/25 0833 OT Time and Intention Subjective Information no complaints (P) -BT Document Type therapy note (daily note) (P) -BT Mode of Treatment individual therapy;occupational therapy (P) -BT Row Name 01/28/25 0833 General Information Existing Precautions/Restrictions fall (P) -BT Barriers to Rehab medically complex (P) -BT Row Name 01/28/25832 Cognition Orientation Status (Cognition) oriented x 3 (P) -BT Row Name 01/28/25832 Safety Issues/Impairments Affecting Functional Mobility Safety Issues Affecting Function (Mobility) awareness of need for assistance;impulsivity (P) -BT Impairments Affecting Function (Mobility) endurance/activity tolerance (P) -BT User Thompson (r) = Recorded By, (t) = Taken By, (c) = Cosigned By Initials Name Provider Type BT Shabana Kim, OT Student OT Student Mobility/ADL's Row Name 01/28/25834 Bed Mobility Bed Mobility supine-sit (P) -BT Supine-Sit [place] (Bed Mobility) modified independence (P) -BT Assistive Device (Bed Mobility) head of bed elevated (P) -BT Row Name 01/28/25834 Transfers Transfers sit-stand transfer;stand-sit transfer;bed-chair transfer (P) -BT Row Name 01/28/25834 Bed-Chair Transfer Bed-Chair [place] (Transfers) independent (P) -BT Row Name 01/28/25 Sit-Stand Transfer Sit-Stand [place] (Transfers) independent (P) -BT Row Name 01/28/25 Stand-Sit Transfer Stand-Sit [place] (Transfers) independent (P) -BT Row Name 01/28/25 Functional Mobility Functional Mobility- Ind. Level independent (P) -BT Functional Mobility-Distance (Feet) -- (P) HH distance -BT Row Name 01/28/25834 Activities of Daily Living BADL Assessment/Intervention upper body dressing;lower body dressing;grooming (P) -BT Row Name 01/28/25834 Hygiene Care Oral Care teeth brushed - regular toothbrush (P) -BT Row Name 01/28/25 Upper Body Dressing Assessment/Training [place] Level (Upper Body Dressing) don;doff;front opening garment;standby assist (P) -BT Position (Upper Body Dressing) edge of bed sitting (P) -BT Row Name 01/28/25834 Lower Body Dressing Assessment/Training [place] Level (Lower Body Dressing) don;doff;socks;independent (P) figure 4 -BT Position (Lower Body Dressing) edge of bed sitting (P) -BT Row Name 01/28/25 08 Grooming Assessment/Training [place] Level (Grooming) oral care regimen;wash face, hands;set up (P) -BT Position (Grooming) sink side;unsupported standing (P) -BT User Thompson (r) = Recorded By, (t) = Taken By, (c) = Cosigned By Initials Name Provider Type BT Shabana Kim, OT Student OT Student Obj/Interventions Row Name 01/28/25 0839 Balance Balance Assessment sitting static balance;sitting dynamic balance;standing static balance;standing dynamic balance (P) -BT Static Sitting Balance independent (P) -BT Dynamic Sitting Balance independent (P) -BT Position, Sitting Balance unsupported;sitting edge of bed (P) -BT Static Standing Balance independent (P) -BT Dynamic Standing Balance standby assist (P) -BT Position/Device Used, Standing Balance unsupported (P) -BT Balance Interventions sitting;standing;sit to stand;supported;static;dynamic;occupation based/functional task (P) -BT User Thompson (r) = Recorded By, (t) = Taken By, (c) = Cosigned By Initials Name Provider Type BT Shabana Kim, OT Student OT Student Goals/Plan Row Name 01/28/25 0853 Dressing Goal 1 (OT) Activity/Device (Dressing Goal 1, OT) upper body dressing;lower body dressing (P) -BT [place]/Cues Needed (Dressing Goal 1, OT) standby assist (P) -BT Time Frame (Dressing Goal 1, OT) short term goal (STG);5 days (P) -BT Progress/Outcome (Dressing Goal 1, OT) goal met (P) -BT Row Name 01/28/25 0897 Grooming Goal 1 (OT) Activity/Device (Grooming Goal 1, OT) hair care;oral care;wash face, hands (P) -BT [place] (Grooming Goal 1, OT) standby assist (P) -BT Time Frame (Grooming Goal 1, OT) [employer] goal (LTG);10 days (P) -BT Strategies/Barriers (Grooming Goal 1, OT) standing sinkside (P) -BT Progress/Outcome (Grooming Goal 1, OT) goal met (P) -BT User Thompson (r) = Recorded By, (t) = Taken By, (c) = Cosigned By Initials Name Provider Type BT Shabana Kim, OT Student OT Student Clinical Impression Row Name 01/28/25 0840 Pain Assessment Pretreatment Pain Rating 0/10 - no pain (P) -BT Posttreatment Pain Rating 0/10 - no pain (P) -BT Row Name 01/28/25 0840 Plan of Care Review Plan of Care Reviewed With patient (P) -BT Progress improving (P) -BT Outcome Evaluation Pt presents at baseline, demonstrating independence with ADLs in session and pt reporting returned to PLOF. OT to sign off, rec home when medically ready. (P) -BT Row Name 01/28/25 0840 Therapy Plan Review/Discharge Plan (OT) Anticipated Discharge Disposition (OT) home (P) -BT Row Name 01/28/25 0840 Vital Signs Pre Patient Position Supine (P) -BT Intra Patient Position Standing (P) -BT Post Patient Position Supine (P) -BT Row Name 01/28/2540 Positioning and Restraints Pre-Treatment Position in bed (P) -BT Post Treatment Position bed (P) -BT In Bed supine;call light within reach;encouraged to call for assist;exit alarm on (P) -BT User Thompson (r) = Recorded By, (t) = Taken By, (c) = Cosigned By Initials Name Provider Type BT Shabana Kim, OT Student OT Student Outcome Measures Row Name 01/28/2546 How much help from another is currently needed... Putting on and taking off regular lower body clothing? 4 (P) -BT Bathing (including washing, rinsing, and drying) 3 (P) -BT Toileting (which includes using toilet bed briceno or urinal) 3 (P) -BT Putting on and taking off regular upper body clothing 4 (P) -BT Taking care of personal grooming (such as brushing teeth) 4 (P) -BT Eating meals 4 (P) -BT AM-PAC 6 Clicks Score (OT) 22 (P) -BT Row Name 01/28/25845 Modified [place] Scale Pre-Stroke Modified Dimitry Scale 6 - Unable to determine (UTD) from the medical record documentation (P) -BT Modified [place] Scale 0 - No Symptoms at all. (P) -BT Row Name 01/28/25 0846 Functional Assessment Outcome Measure Options AM-PAC 6 Clicks Daily Activity (OT) (P) -BT User Thompson (r) = Recorded By, (t) = Taken By, (c) = Cosigned By Initials Name Provider Type BT Shabana Kim, OT Student OT Student Occupational Therapy Education Title: PT OT POST ACUTE CARE NURSE PRACTITIONER Therapies (In Progress) Topic: Occupational Therapy (In Progress) Point: ADL training (Done) Learning Progress Summary Patient Acceptance, E, VU by BT at 01/28/2025845 Acceptance, TB,E, NR by KF at 01/26/2025 1144 Point: Precautions (Done) Learning Progress Summary Patient Acceptance, E, VU by BT at 01/28/2025845 Acceptance, TB,E, NR by KF at 01/26/2025 1144 Point: Body mechanics (Done) Learning Progress Summary Patient Acceptance, E, VU by BT at 01/28/2025845 Acceptance, TB,E, NR by at 01/26/2025 1144 User Thompson Initials Effective Dates Name Provider Type Discipline KF 11/08/22 - Shelly Saleem, OT Occupational Therapist OT 11/14/24 - Shabana Kim, OT Student OT Student OT OT Recommendation and Plan Recommended discharge disposition is based on the functional assessment performed by PT/OT/Speech therapy (as applicable) and may not reflect the medical necessity determined by your provider or services covered by an individual patient's insurance plan or patient resource. Plan of Care Review Plan of Care Reviewed With: (P) patient Progress: (P) improving Outcome Evaluation: (P) Pt presents at baseline, demonstrating independence with ADLs in session and pt reporting returned to PLOF. OT to sign off, rec home when medically ready. Plan of Care Reviewed With: (P) patient Outcome Evaluation: (P) Pt presents at baseline, demonstrating independence with ADLs in session and pt reporting returned to PLOF. OT to sign off, rec home when medically ready. Time Calculation: Time Calculation- OT Row Name 01/28/2547 Time Calculation- OT OT Start Time 08 (P) -BT OT Received On 01/28/25 (P) -BT Timed Charges 38207 - OT Self Care/Mgmt Minutes 24 (P) -BT Total Minutes Timed Charges Total Minutes 24 (P) -BT Total Minutes 24 (P) -BT User Thompson (r) = Recorded By, (t) = Taken By, (c) = Cosigned By Initials Name Provider Type BT Shabana Kim OT Student OT Student Therapy Charges for Today Code Description Service Date Service Provider Modifiers Qty [id number] HC OT SELF CARE/MGMT/TRAIN EA 15 MIN 01/28/2025 Shabana iKm OT Student GO 2 OT Discharge Summary Anticipated Discharge Disposition (OT): (P) home Reason for Discharge: (P) At baseline function Outcomes Achieved: (P) Refer to plan of care for updates on goals achieved Discharge Destination: (P) Home MALICK Curtis 01/28/2025 Cosigned by Florence Ramirez OT at 01/28/2025 10:17 AM EDT Associated attestation - Florence Ramirez OT - 01/28/2025 10:17 AM EDT EUGENIO Leon/Ciro 01/28/25 10:17AM documented in this encounter Discharge Instructions * Attachments The following attachments cannot be sent through Care Everywhere. * Levetiracetam Tablets ([place] Zeal[place]) * Toxic Metabolic Encephalopathy ([place] Ze[place]) * Managing Your Hypertension ([place] Ze[place]) documented in this encounter Medications at Time of Discharge amLODIPine (NORVASC) 10 MG tablet TAKE 1 TABLET BY MOUTH ONCE DAILY 60 tablet 11 2 atorvastatin (LIPITOR) 20 MG tabletIndications:Pure hypercholesterolemia Take 1 tablet by mouth Daily. 90 tablet 1 2 cloNIDine (CATAPRES) 0.1 MG tablet Take 1 tablet by mouth Every 12 (Twelve) Hours. 60 tablet 5 025 diphenoxylate-atropine (LOMOTIL) 2.5-0.025 MG per tabletIndications:Irrita ble bowel syndrome with diarrhea Take 1 tablet by mouth 4 (Four) Times a Day As Needed for Diarrhea. 240 tablet 2 2 DULoxetine (CYMBALTA) 60 MG capsule Take 1 capsule by mouth Daily. 2 furosemide (LASIX) 40 MG tablet TAKE ONE TABLET BY MOUTH EVERY DAY 30 tablet 11 2 levETIRAcetam (KEPPRA) 500 MG tablet Take 1 tablet by mouth Every 12 (Twelve) Hours. 60 tablet 5 025 losartan (COZAAR) 50 MG tablet Take 2 tablets by mouth Daily. 60 tablet 5 025 amitriptyline (ELAVIL) 50 MG tablet Take 1 tablet by mouth Every Night. ARIPiprazole (ABILIFY) 2 MG tablet Take 1 tablet by mouth Daily. ciclopirox (LOPROX) 0.77 % suspension Apply 1 Application topically to the appropriate area as directed Every 12 (Twelve) Hours. Apply daily to affected toenail dicyclomine (BENTYL) 10 MG capsule Take 1 capsule by mouth 3 (Three) Times a Day As Needed for Abdominal Cramping. estradiol 0.25 MG/0.25GM gel Place 1 Application on the skin as directed by provider Daily. Fluticasone-Salmeterol (ADVAIR/WIXELA) 250-50 MCG/ACT DISKUS Inhale 1 puff 2 (Two) Times a Day. 60 each 5 2 HYDROmorphone (DILAUDID) 4 MG tablet Take 1 tablet by mouth Every 4 (Four) Hours As Needed for Moderate Pain. levothyroxine (SYNTHROID, LEVOTHROID) 25 MCG tablet Take 1 tablet by mouth Every Morning. oxyCODONE (OXY-IR) 5 MG capsule Take 1 capsule by mouth Every 4 (Four) Hours As Needed for Moderate Pain. tiZANidine (ZANAFLEX) 4 MG tablet Take 1 tablet by mouth Every 8 (Eight) Hours As Needed for Muscle Spasms. tretinoin (RETIN-A) 0.05 % cream Apply 1 Application topically to the appropriate area as directed Every Night. tretinoin (VESANOID) 10 MG chemo capsule Take by mouth 2 (Two) Times a Day. vitamin D (ERGOCALCIFEROL) 1.25 MG (09570 UT) capsule capsule Take 1 capsule by mouth 1 (One) Time Per Week. documented as of this encounter Progress Notes * Olvin Peterson MD - 01/28/2025 11:52 AM EDT Neurology Patient Care Team: Connor Gomez MD as PCP - General (Family Medicine) Chief complaint: Altered mental status/seizure History: Patient remains awake alert and oriented. She has had no further seizure activity. Her blood pressure is coming under control but slowly, but earlier this morning it was 197/98 and when I was in the room as 170 systolic. No significant pain and no complaints. Past Medical History: Diagnosis Date Acute blood loss anemia, mild, asymptomatic 07/19/2018 Acute postoperative pain 07/19/2018 Anxiety 1955 Anxiety and depression of lifeling duration Arthritis Asthma 1989 Well-cobtrolled with inhaled corticosteroids. Cholelithiasis Clostridium difficile infection 05/2017 hospitalized for 1 week Colon polyp 1989 First colonoscopy at age 36 resulted in removal iof 13 precancerous polyps. 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 Depression Headache 1989. Migraines became chronic and very diffucult to manage. Multiple treatment regimens were attempted. Some were helpful. Migraines ceased at menopause with few occasions thereafter. Heart murmur Hepatitis C history- currently tests negative by GI dr Hyperlipidemia Hypertension 2014 Drug treatment has been successful with a few recent episodic spijes in past 2-3 years. Hyponatremia, mild 07/19/2018 IBS (irritable bowel syndrome) Osteopenia 2001 Chronic, progressive cartilage breakdown. First total joint (L shoulder 2001). Since then have had all major joints replaced except L knee and R hip. R total hip scheduled 04/14/22. L knee to follow. Wears reading eyeglasses Vital Signs Vitals: 01/28/25 0400 01/28/25 0430 01/28/25 0750 01/28/25 0756 BP: (!) 176/129 (!) 178/137 (!) 197/98 BP Location: Left arm Patient Position: Lying Pulse: 103 91 109 (!) 131 Resp: 16 Temp: 97.9 ??F (36.6 ??C) TempSrc: Oral SpO2: 97% 98% 96% 97% Weight: Height: Physical Exam: General: Pleasant and alert Neuro: Oriented to person place and time. Speech is articulate. Moves all extremities well. Results Review: Labs reviewed Results from last 7 days Lab Units 01/28/25 1034 WBC 10*3/mm3 12.20* HEMOGLOBIN g/dL 11.6* HEMATOCRIT % 35.5 PLATELETS 10*3/mm3 301 Results from last 7 days Lab Units 01/27/25 1845 01/27/25 0454 01/26/25 0209 SODIUM mmol/L -- 141 142 POTASSIUM mmol/L 3.8 3.2* 3.9 CHLORIDE mmol/L -- 107 107 CO2 mmol/L -- 22.6 21.1* BUN mg/dL -- 10.9 20.1 CREATININE mg/dL -- 0.96 1.30* CALCIUM mg/dL -- 8.6 9.0 BILIRUBIN mg/dL -- -- 0.4 ALK PHOS U/L -- -- 120* ALT (SGPT) U/L -- -- 19 AST (SGOT) U/L -- -- 30 GLUCOSE mg/dL -- 92 154* Imaging Results (Last 24 Hours) No results found for the last 24 hours. Assessment: Hypertensive crisis with altered mental state and seizures, both resolved Plan: Patient is okay to discharge when her blood pressure comes under control. Comment: Doing well I discussed the patient's findings and my recommendations with patient, nursing staff, and primary care team Olvin Peterson MD 01/28/25 11:52 EDT * Jessica Valdovinos, DO - 01/28/2025 7:14 AM EDT Images from the original note were not included. [facility] Medicine Services PROGRESS NOTE Patient Name: Farrah Atkinson : 1950 Date of Admission: 01/26/2025 Primary Care Physician: Connor Gomez MD Subjective Subjective CC: Encephalopathy HPI: Blood pressure high this morning but had not gotten her meds. Answering questions appropriately. Does not want to go to rehab Objective Objective Vital Signs: Temp: [97.9 ??F (36.6 ??C)-98.4 ??F (36.9 ??C)] 97.9 ??F (36.6 ??C) Heart Rate: [78-131] 131 Resp: [16-17] 16 BP: (142-197)/(70-137) 197/98 Physical Exam: Constitutional: No acute distress, awake, alert HENT: NCAT, mucous membranes moist Respiratory: Respiratory effort normal Musculoskeletal: No bilateral ankle edema Psychiatric: Appropriate affect, cooperative Neurologic: Oriented x 3, speech clear Skin: No rashes Results Reviewed: LAB RESULTS: Lab 01/27/25 0454 01/26/25 1044 01/26/25 0651 01/26/25 0328 01/26/25 0209 WBC 9.35 -- -- -- 18.88* HEMOGLOBIN 10.2* -- -- -- 11.6* HEMATOCRIT 32.3* -- -- -- 35.6 PLATELETS 226 -- -- -- 411 NEUTROS ABS -- -- -- -- 16.24* EOS ABS -- -- -- -- 0.00 MCV 95.0 -- -- -- 89.4 PROCALCITONIN -- -- -- -- 0.15 LACTATE -- 1.9 2.2* -- 2.7* PROTIME -- -- -- -- 13.9 APTT -- -- -- -- 26.2 HSTROP T -- -- -- 22* 23* Lab 01/27/25 1845 01/27/254 01/26/25 0651 01/26/25 0209 SODIUM -- 141 -- 142 POTASSIUM 3.8 3.2* -- 3.9 CHLORIDE -- 107 -- 107 CO2 -- 22.6 -- 21.1* ANION GAP -- 11.4 -- 13.9 BUN -- 10.9 -- 20.1 CREATININE -- 0.96 -- 1.30* EGFR -- 62.6 -- 43.5* GLUCOSE -- 92 -- 154* CALCIUM -- 8.6 -- 9.0 IONIZED CALCIUM -- -- -- 1.15 MAGNESIUM -- -- -- 2.1 PHOSPHORUS -- -- -- 3.6 HEMOGLOBIN A1C -- -- 5.67* -- TSH -- -- -- 1.430 Lab 01/26/25 020 TOTAL PROTEIN 6.9 ALBUMIN 4.0 GLOBULIN 2.9 ALT (SGPT) 19 AST (SGOT) 30 BILIRUBIN 0.4 ALK PHOS 120* LIPASE 20 Lab 01/26/25 0328 01/26/25 0209 HSTROP T 22* 23* PROTIME -- 13.9 INR -- 1.01 Lab 01/26/25 0209 CHOLESTEROL 209* LDL CHOL 113* HDL CHOL 70* TRIGLYCERIDES 149 Brief Urine Lab Results (Last result in the past 365 days) Color Clarity Blood Leuk Est Nitrite Protein CREAT Urine HCG 01/26/25 0257 Yellow Clear Moderate (2+) Small (1+) Negative Trace Microbiology Results Abnormal None MRI Brain With Contrast Result Date: 01/27/2025 MRI BRAIN W CONTRAST Date of Exam: 01/27/2025 1:27 AM EDT Indication: Changes on MRI. Comparison: MRI from 01/26/2025 Technique: Routine multiplanar/multisequence sequence images of the brain were obtained after the uneventful administration of 8 mL Vueway. Findings: Contrast-enhanced images as supplement to earlier noncontrast exams fail to demonstrate pathologic contrast enhancement. The intracranial vascular structures and meninges have a normal contrast enhancement. 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 Metabolic disorder ornonspecific cerebritis would be included in the differential. Impression: Impression: No pathologic contrast enhancement. 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 Electronically Signed: Jesus Peterson MD 01/27/2025 2:05 AM EDT Workstation ID: [id number] Results for orders placed during the hospital encounter of 01/26/25 Adult Transthoracic Echo Complete W/ Cont if Necessary Per Protocol (With Agitated Saline) 01/26/2025 8:46 PM Interpretation Summary Left ventricular systolic function is normal. Estimated left ventricular EF = 60% Left ventricular diastolic function is consistent with (grade I) impaired relaxation. Aortic sclerosis without recurrent aortic stenosis. Trace aortic regurgitation. Trace mitral regurgitation. Trace tricuspid regurgitation with normal RVSP. Saline test results are negative. I have personally reviewed the therapy plans: [] PT/OT/ ST Therapy Plans Current medications: Scheduled Meds:acyclovir, 400 mg, Oral, BID amitriptyline, 50 mg, Oral, Nightly amLODIPine, 10 mg, Oral, Q24H ARIPiprazole, 2 mg, Oral, Daily cloNIDine, 0.1 mg, Oral, Q12H DULoxetine, 120 mg, Oral, Daily enoxaparin sodium, 40 mg, Subcutaneous, Daily levETIRAcetam, 500 mg, Oral, Q12H levothyroxine, 25 mcg, Oral, Q AM Lidocaine, 1 patch, Transdermal, Q24H losartan, 25 mg, Oral, Q24H mupirocin, 1 Application, Each Nare, BID sodium chloride, 10 mL, Intravenous, Q12H sodium chloride, 10 mL, Intravenous, Q12H sodium chloride, 10 mL, Intravenous, Q12H sodium chloride, 10 mL, Intravenous, Q12H sodium chloride, 10 mL, Intravenous, Q12H Continuous Infusions: PRN Meds:. senna-docusate sodium AND polyethylene glycol AND bisacodyl AND bisacodyl Calcium Replacement - Follow Nurse / BPA Driven Protocol labetalol Magnesium Standard Dose Replacement - Follow Nurse / BPA Driven Protocol oxyCODONE-acetaminophen Phosphorus Replacement - Follow Nurse / BPA Driven Protocol Potassium Replacement - Follow Nurse / BPA Driven Protocol sodium chloride sodium chloride sodium chloride sodium chloride sodium chloride sodium chloride sodium chloride Assessment & Plan Assessment & Plan Active Hospital Problems Diagnosis POA PRES (posterior reversible encephalopathy syndrome) [I67.83] Yes Resolved Hospital Problems No resolved problems to display. Brief Hospital Course to date: Farrah Atkinson is a 74 y.o. female with history of CKD, hypertension, paroxysmal A-fib recurrentUTIs who was transferred from [facility] on 01/26 to ICU. Per chart review, the patient was found by her shortly after crushing and snorting pain pills. She was obtunded, treated with Narcan but subsequently experienced seizure-like event and was treated with Ativan. At OSH, she had CT head that showed possible subarachnoid hemorrhage versus artifact. There was also concern for meningitis and she underwent LP. At [facility], MRI of brain revealed motion artifact but also showed mild sulcal effacement predominantly involving the cortex of the bilateral occipital and parietal lobes. There was concern for possible PRES syndrome. Her blood pressure was significantly elevated and shewas treated with Precedex with improvement of agitation. She was transferred to telemetry floor on 01/27. Neurology is following Strokelike symptoms Concern for possible subarachnoid hemorrhage - MRI brain on 01/27 showed findings concerning for possible press in the context of accelerated hypertension - Repeat MRI showed normalization TIP on CKD - Improved Concern for possible seizure after receiving Narcan - Neurology following - Continue [place] Initial concern for meningitis - Monitor off antibiotics - Had LP at OSH Hypertension - Titrate meds for blood pressure, multiple meds just started 01/27 Agitation - Required Precedex drip while in ICU Hypothyroidism - Continue Synthroid Expected Discharge Location and Transportation: Home, refusing rehab Expected Discharge Expected discharge date/ time has not been documented. VTE Prophylaxis: Pharmacologic & mechanical VTE prophylaxis orders are present. AM-PAC 6 Clicks Score (PT): 18 (01/28/25 0859) CODE STATUS: Code Status and Medical Interventions: CPR (Attempt to Resuscitate); Full Support Ordered at: 01/26/25 0308 Code Status (Patient has no pulse and is not breathing): CPR (Attempt to Resuscitate) Medical Interventions (Patient has pulse or is breathing): Full Support Jessica Valdovinos DO 01/28/25 * Andrew Barkley MD - 01/27/2025 5:34 PM EDT Pulmonary/Critical Care ICU Note LOS: 1 day Patient Care Team: Connor Gomez MD as PCP - General (Family Medicine) Chief Complaint: Strokelike symptoms Subjective History of Present Illness The patient is a 74-year-old female who presents for concerns of subarachnoid hemorrhage. She has a history of hypertension, chronic kidney disease (CKD), depression, chronic pain, ischemiccolitis, status post colectomy and end ileostomy, paroxysmal atrial fibrillation (PAF), prior C. difficile infection, and recurrent urinary tract infections (UTIs). She was transferred from [facility] on 01/26/2025. She was found at home by her shortly after crushing and snorting some pain pills. She was in an obtunded state and was treated with Narcan, which resulted in the return of consciousness. However, she subsequently experienced a seizure-like event and was treated with Ativan. Since then, she has not returned to her baseline, exhibiting significant agitation and confusion. A CT scan at the outside hospital showed possible subarachnoid hemorrhage versus artifact. There was also concern for meningitis given the sudden onset and her age, prompting a lumbar puncture. The results showed 2 white blood cells, 1 red blood cell, glucose of 105, and protein of 100. Her labs also indicated elevated creatinine, leukocytosis, and mild lactic acidosis of 2.7. Upon arrival here, she underwent an MRI of the brain on 01/27/2025, which was limited by motion butrevealed mild sulcal effacement involving predominantly the cortex of the bilateral occipital and parietal lobes with mild anterior extension involving the frontal lobes on the left. These findings were nonspecific but possibly indicative of PRES. Underlying infection/encephalitis cerebritis as well as metabolic disorders were also considered possibilities. She was significantly hypertensive. Today, she is awake, alert, and appropriate. She is off Precedex and reports no current complaints. PAST SURGICAL HISTORY: Status post colectomy and end ileostomy. SOCIAL HISTORY Marital Status: Recreational Drugs: The patient snorts pain pills. History taken from: [facility]//Social History were reviewed and updated appropriately in the electronic medical record. Review of Systems: Review of 14 systems was completed with positives and pertinent negatives noted in the subjective section. All other systems reviewed and are negative. Objective Vital Signs Temp: [96.8 ??F (36 ??C)-98.4 ??F (36.9 ??C)] 98.2 ??F (36.8 ??C) Heart Rate: [73-113] 82 Resp: [15-18] 17 BP: (101-195)/(53-106) 182/90 01/26 0701 - 01/27 0700 In: 2668.7 [P.O.:503; I.V.:1815.7] Out: 1780 [Urine:1180] Body mass index is 31.68 kg/m??. IV drips: dexmedetomidine, Last Rate: Stopped (01/27/25 0615) Physical Exam: Physical Exam General: No acute distress. HEENT: Normocephalic, atraumatic. Pupils equal and round. Mucous membranes moist. Neck: Trachea midline. No JVD. Lungs: Normal respiratory effort. Clear to auscultation bilaterally. Abdomen: Soft, nontender, nondistended. Ileostomy with output. Extremities: No clubbing, cyanosis, or edema. Neurologic: Moves all extremities without focal motor deficit. Cranial nerves II through XII grossly intact. No drift. Psychiatric: Not agitated. The above physical exam findings were reviewed and reflect my exam findings as of today's exam. Electronically signed by: Andrew Barkley MD 01/27/25 17:34 EDT Results Review: I reviewed the patient's new clinical results. Results from last 7 days Lab Units 01/27/2545301/26/25 0209 SODIUM mmol/L 141 142 POTASSIUM mmol/L 3.2* 3.9 CHLORIDE mmol/L 107 107 CO2 mmol/L 22.6 21.1* BUN mg/dL 10.9 20.1 CREATININE mg/dL 0.96 1.30* CALCIUM mg/dL 8.6 9.0 BILIRUBIN mg/dL -- 0.4 ALK PHOS U/L -- 120* ALT (SGPT) U/L -- 19 AST (SGOT) U/L -- 30 GLUCOSE mg/dL 92 154* Results from last 7 days Lab Units 01/27/2545301/26/25 0209 WBC 10*3/mm3 9.35 18.88* HEMOGLOBIN g/dL 10.2* 11.6* HEMATOCRIT % 32.3* 35.6 PLATELETS 10*3/mm3 226 411 MONOCYTES % % -- 3.0* EOSINOPHIL % % -- 0.0* Results from last 7 days Lab Units 01/26/25 0209 MAGNESIUM mg/dL 2.1 PHOSPHORUS mg/dL 3.6 I reviewed the patient's new imaging including images and reports. Results Labs - Lumbar puncture: Two white blood cells, one red blood cell, glucose of 105, protein of 100 - Creatinine: Elevated - Leukocytosis: Elevated - Lactic acidosis: 2.7 Imaging - CT scan of the brain: Concern for possible subarachnoid hemorrhage versus artifact - MRI of the brain: 01/27/2025, Mild sulcal effacement involving predominantly the cortex of the bilateral occipital and parietal lobes with mild anterior extension involving the frontal lobes on theleft; findings were nonspecific but possibly representing press, underlying infection/encephalitis cerebritis, or metabolic disorders Medication Review: acyclovir, 400 mg, Oral, BID amitriptyline, 50 mg, Oral, Nightly amLODIPine, 5 mg, Oral, Q24H ARIPiprazole, 2 mg, Oral, Daily DULoxetine, 120 mg, Oral, Daily levETIRAcetam, 500 mg, Oral, Q12H levothyroxine, 25 mcg, Oral, Q AM Lidocaine, 1 patch, Transdermal, Q24H losartan, 25 mg, Oral, Q24H mupirocin, 1 Application, Each Nare, BID sodium chloride, 10 mL, Intravenous, Q12H sodium chloride, 10 mL, Intravenous, Q12H sodium chloride, 10 mL, Intravenous, Q12H sodium chloride, 10 mL, Intravenous, Q12H sodium chloride, 10 mL, Intravenous, Q12H dexmedetomidine, 0.2-1.5 mcg/kg/hr, Last Rate: Stopped (01/27/25 0615) Assessment & Plan SAH (subarachnoid hemorrhage) Assessment & Plan 1. Stroke-like symptoms and concern for subarachnoid hemorrhage. Upon further evaluation and imaging, this diagnosis is not substantiated. Initial MRI findings on 01/27/2025 suggested mild sulcal effacement involving predominantly the cortex of the bilateral occipital and parietal lobes with mild anterior extension involving the frontal lobes on the left. These findings were concerning for PRES in the context of accelerated hypertension. With improved blood pressure control, her mental state has cleared and a repeat MRI showed normalization. 2. Acute kidney injury (TIP). Her condition has significantly improved. Renal function, electrolytes, and in and out volumes willcontinue to be monitored. 3. Concern for seizure. There is no evidence of seizure activity. Neurology is following up and she is on Keppra 500 mg every 12 hours. Follow-up EEG will be conducted. 4. Concern for meningitis. Antibiotics have been discontinued except for acyclovir. Additional labs will be followed up. 5. Respiratory status. She is tolerating room air well. 6. Deep vein thrombosis (DVT) prophylaxis. Lovenox will be started. 7. Hypertension. Home medications will be restarted and monitored. 8. Agitation. Her agitation has improved. The Precedex order will be discontinued. 9. For hypothyroidism: Continue levothyroxine. No driving for 3 months due to [place] [facility]. Okay to telemetry/hospitalist. Electronically signed by: Andrew Barkley MD 01/27/25 17:34 EDT Patient or patient surgical device sales representative verbalized consent for the use of Ambient Listening during the visit for chart documentation. *Exception: for ICU patients or for instances where consent for use was not given, active listeningwas used only for dictation and was not used to record patient or family. * Olvin Peterson MD - 01/27/2025 1:48 PM EDT Neurology Patient Care Team: Connor Gomez MD as PCP - General (Family Medicine) Chief complaint: Confusion History: The patient's confusion is completely lifted. She is back to normal. Her is here today and tells me that she was found down between the vanity and the bathtub. He describes an episode in the hospital where her eyes rolled back into her head her body stiffened and then began to jerk. She admits to being noncompliant with her evening doses of blood pressure medication and has been hospitalized at least once for a with high blood pressure associated with that admission. Past Medical History: Diagnosis Date Acute blood loss anemia, mild, asymptomatic 07/19/2018 Acute postoperative pain 07/19/2018 Anxiety 1955 Anxiety and depression of lifeling duration Arthritis Asthma 1989 Well-cobtrolled with inhaled corticosteroids. Cholelithiasis Clostridium difficile infection 05/2017 hospitalized for 1 week Colon polyp 1989 First colonoscopy at age 36 resulted in removal iof 13 precancer[address] polyps. 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 Depression Headache 1989. Migraines became chronic and very diffucult to manage. Multiple treatment regimens were attempted. Some were helpful. Migraines ceased at menopause with few occasions thereafter. Heart murmur Hepatitis C history- currently tests negative by GI dr Hyperlipidemia Hypertension 2014 Drug treatment has been successful with a few recent episodic spijes in past 2-3 years. Hyponatremia, mild 07/19/2018 IBS (irritable bowel syndrome) Osteopenia 2001 Chronic, progressive cartilage breakdown. First total joint (L shoulder 2001). Since then have had all major joints replaced except L knee and R hip. R total hip scheduled 04/14/22. L knee to follow. Wears reading eyeglasses Vital Signs Vitals: 01/27/25 1100 01/27/25 1107 01/27/25 1200 01/27/25 1240 BP: (!) 194/94 (!) 194/94 (!) 181/86 (!) 181/86 BP Location: Patient Position: Pulse: 101 101 98 100 Resp: Temp: TempSrc: SpO2: 97% 99% 100% Weight: Height: Physical Exam: General: Pleasant and alert Maximum blood pressure in the past 24 hours was 195/92 and is currently 181/86. Neuro: Awake and alert Oriented to person place and time. Speech is articulate with no word finding problems. Face is symmetrical. She moves all extremities without difficulty. Results review: MRI of the brain with infusion shows no pathologic contrast-enhancement. Results from last 7 days Lab Units 01/27/25453 WBC 10*3/mm3 9.35 HEMOGLOBIN g/dL 10.2* HEMATOCRIT % 32.3* PLATELETS 10*3/mm3 226 Results from last 7 days Lab Units 01/27/2545301/26/25208 SODIUM mmol/L 141 142 POTASSIUM mmol/L 3.2* 3.9 CHLORIDE mmol/L 107 107 CO2 mmol/L 22.6 21.1* BUN mg/dL 10.9 20.1 CREATININE mg/dL 0.96 1.30* CALCIUM mg/dL 8.6 9.0 BILIRUBIN mg/dL -- 0.4 ALK PHOS U/L -- 120* ALT (SGPT) U/L -- 19 AST (SGOT) U/L -- 30 GLUCOSE mg/dL 92 154* Imaging Results (Last 24 Hours) Procedure Component Value Units Date/Time MRI Brain With Contrast [[id number]] Collected: 01/27/25199 Updated: 01/27/25207 Narrative: MRI BRAIN W CONTRAST Date of Exam: 01/27/2025 1:27 AM EDT Indication: Changes on MRI. Comparison: MRI from 01/26/2025 Technique: Routine multiplanar/multisequence sequence images of the brain were obtained after the uneventful administration of 8 mL Vueway. Findings: Contrast-enhanced images as supplement to earlier noncontrast exams fail to demonstrate pathologic contrast enhancement. The intracranial vascular structures and meninges have a normal contrast enhancement. 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 Metabolic disorder or nonspecific cerebritis would be included in the differential. Impression: Impression: No pathologic contrast enhancement. 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 Electronically Signed: Jesus Peterson MD 01/27/2025 2:05 AM EDT Workstation ID: [id number] Assessment: PRES. Solitary seizure Accelerated hypertension Plan: Continue Keppra 500 mg 3 times daily. Outpatient follow-up [facility] in 3 months. No driving or pursuit of dangerous activities or loss of consciousness will cause injury Comment: Patient needs better blood pressure control but otherwise can be discharged hopefully in the near future. I discussed the patient's findings and my recommendations with patient, family, and nursing staff Olvin Peterson MD 01/27/25 13:49 EDT documented in this encounter H&P Notes * Rayshawn Baldwin MD - 01/26/2025 2:33 AM EDT Intensive Care Admission Note Chief Complaint: SAH (subarachnoid hemorrhage) History of Present Illness Farrah Atkinson is 74-year-old female past medical history of CKD, HTN, depression, chronic pain, ischemic colitis status post colectomy and end ileostomy, paroxysmal atrial fibrillation, prior C.difficile infection, recurrent UTIs who presents to the ICU as a transfer from [facility] due to concerns for subarachnoid hemorrhage. Reportedly the patient was found at home by her shortly after crushing and snorting some pain pills. She was obtunded, treated with Narcan and had return of consciousness however subsequentlyexperienced a seizure-like event and was treated with Ativan. Since that time she has not returned to her baseline. She is awake, oriented to person but not place or time, localizes with all 4 extremities to pain, but is unable to answer questions. CT scan at OSH demonstrated concern for possible subarachnoid hemorrhage versus artifact. There is also some concern for meningitis given sudden onset and the patient's age therefore a lumbar puncture was performed. LP results: WBC 2, RBC 1, glucose 105, protein 100, Gram stain and culture pending On arrival here the patient's labs are significant for increased creatinine, leukocytosis, mild lactic acidosis with a lactate of 2.7. Of note during hospitalization in June 2023 the patient exhibited significant drug-seeking behavior including refusal of medications, self induction of vomiting, demanding IV narcotics. Problem List, Surgical History, Family, Social History, and ROS Past Medical History: Diagnosis Date Acute blood loss anemia, mild, asymptomatic 07/19/2018 Acute postoperative pain 07/19/2018 Anxiety 1955 Anxiety and depression of lifeling duration Arthritis Asthma 1989 Well-cobtrolled with inhaled corticosteroids. Cholelithiasis Clostridium difficile infection 05/2017 hospitalized for 1 week Colon polyp 1989 First colonoscopy at age 36 resulted in removal iof 13 precancerous polyps. 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 Depression Headache 1989. Migraines became chronic and very diffucult to manage. Multiple treatment regimens were attempted. Some were helpful. Migraines ceased at menopause with few occasions thereafter. Heart murmur Hepatitis C history- currently tests negative by GI dr Hyperlipidemia Hypertension 2014 Drug treatment has been successful with a few recent episodic spijes in past 2-3 years. Hyponatremia, mild 07/19/2018 IBS (irritable bowel syndrome) Osteopenia 2001 Chronic, progressive cartilage breakdown. First total joint (L shoulder 2001). Since then have had all major joints replaced except L knee and R hip. R total hip scheduled 04/14/22. L knee to follow. Wears reading eyeglasses Past Surgical History: Procedure Laterality Date BUNIONECTOMY Bilateral x2 SECTION COLONOSCOPY 2014 ENDOSCOPY JOINT REPLACEMENT Previously covered. LAPAROSCOPIC TUBAL LIGATION TOTAL HIP ARTHROPLASTY Left TOTAL SHOULDER ARTHROPLASTY Left TOTAL SHOULDER ARTHROPLASTY Right 07/18/2018 Procedure: TOTAL SHOULDER ARTHROPLASTY RIGHT; Surgeon: Bautista Luis MD; Location: [facility]; Service: Orthopedics TUBAL ABDOMINAL LIGATION 1989 Allergies Allergen Reactions Quinolones Other (See Comments) Fluoroquinolones- knee tendon, extreme pain and risk of rupture. No current facility-administered medications on file prior to encounter. Current Outpatient Medications on File Prior to Encounter Medication Sig acyclovir (ZOVIRAX) 400 MG tablet TAKE 1 TABLET BY MOUTH 2 (TWO) TIMES A DAY. amLODIPine (NORVASC) 10 MG tablet TAKE 1 TABLET BY MOUTH ONCE DAILY atorvastatin (LIPITOR) 20 MG tablet Take 1 tablet by mouth Daily. cloNIDine (CATAPRES) 0.1 MG tablet Take 1 tablet by mouth 2 (Two) Times a Day As Needed (anxiety). diphenoxylate-atropine (LOMOTIL) 2.5-0.025 MG per tablet Take 1 tablet by mouth 4 (Four) Times a Day As Needed for Diarrhea. DULoxetine (CYMBALTA) 60 MG capsule Take 1 capsule by mouth Daily. Fluticasone-Salmeterol (ADVAIR/WIXELA) 250-50 MCG/ACT DISKUS Inhale 1 puff 2 (Two) Times a Day. furosemide (LASIX) 40 MG tablet TAKE ONE TABLET BY MOUTH EVERY DAY losartan (COZAAR) 25 MG tablet Take 1 tablet by mouth Every Morning Before Breakfast. losartan (COZAAR) 50 MG tablet Take 1 tablet by mouth Every Night. potassium chloride (K-DUR,KLOR-CON) 20 MEQ CR tablet TAKE 1 TABLET BY MOUTH TWICE DAILY WITH FOOD MEDICATION LIST AND ALLERGIES REVIEWED. Family History Problem Relation Name Age of Onset Hyperlipidemia Mother Kathy Troy, and many others Cancer Mother Kathy Troy, and many others Dx @ age 65. Treated successfully with sentinal node biopsy followed by radiation. 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 Recurrence last month included metastisis throughout body Mental illness Mother Kathy Troy, and many others Mental illness has been a plague upon my maternal family, too many victims to catalog - alcoholism,drug addiction and od???s, sexual indiscretions, rage, etc., etc. Anxiety disorder Maternal Grandmother Kathy Troy Child abuser. Cancer Maternal Aunt Kathy Guy Diagnosed at age 70. Successfully treated with mastectomy and radiation. Social History Tobacco Use Smoking status: Former Current packs/day: 0.00 Average packs/day: 0.5 packs/day for 5.0 years (2.5 ttl pk-yrs) Types: Cigarettes Start date: 04/02/2004 Quit date: 04/02/2009 Years since quittin.8 Smokeless tobacco: Never Vaping Use Vaping status: Never Used Substance Use Topics Alcohol use: Not Currently Comment: rarely Drug use: No Social History Social History Narrative Not on file FAMILY AND SOCIAL HISTORY REVIEWED. Review of Systems ALL OTHER SYSTEMS REVIEWED AND ARE NEGATIVE. Physical Exam and Clinical Information BP 149/49 (BP Location: Right arm, Patient Position: Lying) Pulse 118 Temp 98.2 ??F (36.8 ??C) (Axillary) Resp 18 Wt 81.4 kg (179 lb 7.3 oz) SpO2 99% BMI 32.81 kg/m?? Physical Exam Vitals reviewed. Constitutional: General: She is not in acute distress. HENT: Head: Normocephalic and atraumatic. Right Ear: External ear normal. Left Ear: External ear normal. Nose: Nose normal. Mouth/Throat: Mouth: Mucous membranes are moist. Pharynx: Oropharynx is clear. No oropharyngeal exudate. Eyes: Extraocular Movements: Extraocular movements intact. Pupils: Pupils are equal, round, and reactive to light. Cardiovascular: Rate and Rhythm: Regular rhythm. Tachycardia present. Pulmonary: Effort: Pulmonary effort is normal. No respiratory distress. Abdominal: General: Abdomen is flat. There is no distension. Palpations: Abdomen is soft. Tenderness: There is no abdominal tenderness. Musculoskeletal: Right lower leg: No edema. Left lower leg: No edema. Skin: General: Skin is warm and dry. Capillary Refill: Capillary refill takes less than 2 seconds. Neurological: Mental Status: She is alert. She is disoriented. Cranial Nerves: No cranial nerve deficit. Sensory: No sensory deficit. Motor: No weakness. Results from last 7 days Lab Units 01/26/25 0209 WBC 10*3/mm3 18.88* HEMOGLOBIN g/dL 11.6* PLATELETS 10*3/mm3 411 Results from last 7 days Lab Units 01/26/25 0209 SODIUM mmol/L 142 POTASSIUM mmol/L 3.9 CO2 mmol/L 21.1* BUN mg/dL 20.1 CREATININE mg/dL 1.30* MAGNESIUM mg/dL 2.1 PHOSPHORUS mg/dL 3.6 GLUCOSE mg/dL 154* CrCl cannot be calculated (Unknown ideal weight.). Lab Results Component Value Date LACTATE 2.7 (C) 01/26/2025 I reviewed the patient's results/ images and I agree with the reports. Impression SAH (subarachnoid hemorrhage) Plan/Recommendations Neuro: # Concern for subarachnoid hemorrhage -Not visualized on our CT here, but reported on OSH CT -Case discussed with stroke navigator -Plan for MRI to further characterize -No aneurysms or LVO noted on CTA -SBP less than 140 # Concern for seizure -Spot EEG as patient has not returned to baseline -Received Keppra at OSH -Keppra 500 mg twice daily here # Concern for meningitis -Antimicrobial coverage with vancomycin, ceftriaxone, ampicillin -Patient is on chronic acyclovir for unclear reasons -will treat with meningitic dose acyclovir fornow # Analgesia: - Tylenol - Hold narcotic analgesia given concern for opioid abuse/overdose - No current signs of respiratory depression/opioid toxidrome Cardiac: # Non-tachycardic, normotensive # Vasoactive Drips: Nicardipine # Echo pending # Troponin level elevated - Likely demand ischemia, pending repeat Respiratory: # Ventilatory Support: Room air Renal: # TIP -Baseline creatinine 0.4, today 1.3 # Electrolytes repletion protocol ordered GI: # Diet/Tube feeds: N.p.o. given AMS # GIB Prophylaxis: Protonix # Bowel Regimen Protocol Ordered Heme: # H&H stable, no active sources of bleeding # DVT prophylaxis: SCDs Infectious Disease: # Meningitis? -Relatively low clinical concern given LP results from OSH -Will continue ABX for now pending culture and MRI data -Vancomycin, ceftriaxone, ampicillin, acyclovir - It is unclear why the patient is on chronic acyclovir Endocrine: # Glucose acceptable Critical Care Time: 38 minutes of critical care provided. This time excludes other billable procedures. Time does include preparation of documents, medical consultations, review of old records, and direct bedside care. Patient is at high risk for life-threatening deterioration due to concern for subarachnoid hemorrhage. He has a high risk of imminent or life-threatening deterioration, which requires the highest level of physician preparedness to intervene urgently. I devoted my full attention to the direct care of this patient for the amount of time indicated above. Time spent with family or surrogate(s) is included only if the patient was incapable of providing the necessary information or participating in medical decision making. Rayshawn Baldwin MD Critical Care Medicine 01/26/25 03:06 EDT CC: Timothy Granda DO documented in this encounter Consult Notes * Shailesh Shaikh MD - 01/26/2025 1:26 PM EDTAssociated Order(s): IP CONSULT TO INFECTIOUS DISEASES Farrah Atkinson 1950 [id number] Date of Consult: 01/26/2025 Date of Admission: 01/26/2025 Requesting Provider: Dr. Barkley Evaluating Physician: Shailesh Shaikh MD CC: confusion Reason for Consultation: encephalopathy eval for meningitis History of present illness: Patient is a 74 y.o. Yr old female with history of very complicated with chronic pain and polypharmacy with prior h/o c diff and hep C, prior h/o of UTIs with ileostomy and HTN reported with pain medabuse and now transferred from outside hospital with CT head concern for possible SAH after a fall.Now more alert today with no fevers and no pressors and mental status improved today and c/o chronic pain and now with imaging with no sign of SAH and possible changes of PRES and Neurology consulted. LP unremarkable and ID consulted today. Past Medical History: Diagnosis Date Acute blood loss anemia, mild, asymptomatic 07/19/2018 Acute postoperative pain 07/19/2018 Anxiety 1955 Anxiety and depression of lifeling duration Arthritis Asthma 1989 Well-cobtrolled with inhaled corticosteroids. Cholelithiasis Clostridium difficile infection 05/2017 hospitalized for 1 week Colon polyp 1989 First colonoscopy at age 36 resulted in removal iof 13 precancerous polyps. 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 Depression Headache 1989. Migraines became chronic and very diffucult to manage. Multiple treatment regimens were attempted. Some were helpful. Migraines ceased at menopause with few occasions thereafter. Heart murmur Hepatitis C history- currently tests negative by GI Hyperlipidemia Hypertension 2014 Drug treatment has been successful with a few recent episodic spijes in past 2-3 years. Hyponatremia, mild 07/19/2018 IBS (irritable bowel syndrome) Osteopenia 2001 Chronic, progressive cartilage breakdown. First total joint (L shoulder 2001). Since then have had all major joints replaced except L knee and R hip. R total hip scheduled 04/14/22. L knee to follow. Wears reading eyeglasses Past Surgical History: Procedure Laterality Date BUNIONECTOMY Bilateral x2 SECTION COLONOSCOPY 2014 ENDOSCOPY JOINT REPLACEMENT Previously covered. LAPAROSCOPIC TUBAL LIGATION TOTAL HIP ARTHROPLASTY Left TOTAL SHOULDER ARTHROPLASTY Left TOTAL SHOULDER ARTHROPLASTY Right 07/18/2018 Procedure: TOTAL SHOULDER ARTHROPLASTY RIGHT; Surgeon: Bautista Luis MD; Location: [facility] OR; Service: Orthopedics TUBAL ABDOMINAL LIGATION 1989 Pediatric History Patient Parents Not on file Other Topics Concern Not on file Social History Narrative Not on file family history includes Anxiety disorder in her maternal grandmother; Cancer in her maternal aunt and mother; Hyperlipidemia in her mother; Mental illness in her mother. Allergies Allergen Reactions Quinolones Other (See Comments) Fluoroquinolones- knee tendon, extreme pain and risk of rupture. Medication: Current Facility-Administered Medications Medication Dose Route Frequency Provider Last Rate Last Admin acyclovir (ZOVIRAX) 800 mg in sodium chloride 0.9 % 250 mL IVPB 10 mg/kg Intravenous Q12H Andrew Barkley MD amitriptyline (ELAVIL) tablet 50 mg 50 mg Oral Nightly Andrew Barkley MD ARIPiprazole (ABILIFY) tablet 2 mg 2 mg Oral Daily Andrew Barkley MD sennosides-docusate (PERICOLACE) 8.6-50 MG per tablet 2 tablet 2 tablet Oral BID PRN Maru Martinez APRN And polyethylene glycol (MIRALAX) packet 17 g 17 g Oral Daily PRN Maru Martinez APRN And bisacodyl (DULCOLAX) EC tablet 5 mg 5 mg Oral Daily PRN Maru Martinez APRN And bisacodyl (DULCOLAX) suppository 10 mg 10 mg Rectal Daily PRN Maru Martinez APRN [START ON 01/27/2025] cefTRIAXone (ROCEPHIN) 2,000 mg in sodium chloride 0.9 % 100 mL MBP 2,000 mg Intravenous Q24H Shailesh Shaikh MD dexmedeTOMIDine (PRECEDEX) 400 mcg in 100 mL NS infusion 0.2-1.5 mcg/kg/hr Intravenous Titrated Maru Martinez APRN 4.1 mL/hr at 01/26/25 0745 0.2 mcg/kg/hr at 01/26/25 0745 DULoxetine (CYMBALTA) DR capsule 120 mg 120 mg Oral Daily Andrew Barkley MD 120 mg at 01/26/25 1321 levETIRAcetam (KEPPRA) injection 500 mg 500 mg Intravenous Q12H Rayshawn Hercules PA-C 500 mg at 01/26/25 0943 [START ON 01/27/2025] levothyroxine (SYNTHROID, LEVOTHROID) tablet 25 mcg 25 mcg Oral Q AM Andrew Barkley MD midazolam (VERSED) injection 2 mg 2 mg Intravenous Once Blamer, Maru R, [employer] SPECIALIST mupirocin (BACTROBAN) 2 % nasal ointment 1 Application 1 Application Each Nare BID Maru Martinez R, [employer] SPECIALIST 1 Application at 01/26/25 0246 sodium chloride 0.9 % flush 10 mL 10 mL Intravenous Q12H Tony Martineza R, [employer] SPECIALIST 10 mL at 01/26/25 0945 sodium chloride 0.9 % flush 10 mL 10 mL Intravenous PRN Tony Martineza R, [employer] SPECIALIST sodium chloride 0.9 % flush 10 mL 10 mL Intravenous Q12H Rayshawn Hercules PA-C 10 mL at 01/26/25 0945 sodium chloride 0.9 % flush 10 mL 10 mL Intravenous PRN Rayshawn Hercules PA-C sodium chloride 0.9 % flush 10 mL 10 mL Intravenous Q12H Andrew Barkley MD sodium chloride 0.9 % flush 10 mL 10 mL Intravenous Q12H Andrew Barkley MD sodium chloride 0.9 % flush 10 mL 10 mL Intravenous Q12H Andrew Barkley MD sodium chloride 0.9 % flush 10 mL 10 mL Intravenous PRN Andrew Barkley MD sodium chloride 0.9 % flush 20 mL 20 mL Intravenous PRN Andrew Barkley MD sodium chloride 0.9 % infusion 40 mL 40 mL Intravenous PRN Maru Martinez, [employer] SPECIALIST sodium chloride 0.9 % infusion 40 mL 40 mL Intravenous PRN Rayshawn Hercules PA-C sodium chloride 0.9 % infusion 40 mL 40 mL Intravenous PRN Andrew Barkley MD Antibiotics: Vanco, amp, ceft and acyclovir Review of Systems Full 12 point review of systems reviewed and negative except for with some intermittent confusion and headache and back pain some abd pain weaknes fatigue and malaise. Physical Exam: Vital Signs BP 106/48 Pulse 79 Temp 97.6 ??F (36.4 ??C) (Axillary) Resp 17 Ht 160 cm (62.99 ) Wt 81.4kg (179 lb 7.3 oz) SpO2 100% BMI 31.80 kg/m?? Temp (24hrs), Av.2 ??F (36.8 ??C), Min:97.6 ??F (36.4 ??C), Max:98.7 ??F (37.1 ??C) GENERAL: Awake and alert with some confusion HEENT: Normocephalic, atraumatic. PERRL. EOMI. No conjunctival injection. No icterus. Oropharynx clear without evidence of thrush or exudate. No evidence of periodontal disease. Dry MM NECK: Supple without nuchal rigidity LYMPH: No cervical, axillary or inguinal lymphadenopathy. No neck masses HEART: RRR; No murmur, rubs, gallops. LUNGS: Clear to auscultation bilaterally without wheezing, rales, rhonchi. Normal respiratory effort. ABDOMEN: Soft, nontender, nondistended. Positive bowel sounds. No rebound or guarding. Ileostomy with bilious output EXT: No cyanosis, clubbing or edema : Normal appearing genitalia without Duran catheter. MSK: FROM without joint effusions noted SKIN: Warm and dry without cutaneous eruptions. NEURO: confusion and moves all extremities PSYCHIATRIC: impaired insight and judgement. Cooperative with PE Laboratory Data Results from last 7 days Lab Units 01/26/25 0209 WBC 10*3/mm3 18.88* HEMOGLOBIN g/dL 11.6* HEMATOCRIT % 35.6 PLATELETS 10*3/mm3 411 Results from last 7 days Lab Units 01/26/25 0209 SODIUM mmol/L 142 POTASSIUM mmol/L 3.9 CHLORIDE mmol/L 107 CO2 mmol/L 21.1* BUN mg/dL 20.1 CREATININE mg/dL 1.30* GLUCOSE mg/dL 154* CALCIUM mg/dL 9.0 Results from last 7 days Lab Units 01/26/25 0209 ALK PHOS U/L 120* BILIRUBIN mg/dL 0.4 ALT (SGPT) U/L 19 AST (SGOT) U/L 30 Estimated Creatinine Clearance: 38.9 mL/min (A) (by C-G formula based on SCr of 1.3 mg/dL (H)). Microbiology: Cx neg LP neg Radiology: Imaging Results (Last 24 Hours) Procedure Component Value Units Date/Time MRI Brain Without Contrast [[id number]] Collected: 01/26/25615 Updated: 01/26/25639 Narrative: MRI BRAIN WO CONTRAST Date of Exam: 01/26/2025 4:30 AM EDT Indication: Stroke, follow up Altered mental status, reported suspicion for SAH on OSH CT imaging. Comparison: CT 01/26/2025 and prior Technique: Routine multiplanar/multisequence sequence images of the brain were obtained without contrast administration. Findings: There is motion limitation. No acute diffusion restriction abnormality noted within the limitations of the study. No definite acute intracranial hemorrhage noted within the limitations of the exam. Midline structures of the brain, pituitary and sellar structures and craniocervical junction are grossly unremarkable. Mild increased cortical signal on FLAIR and T2 weighted imaging with associated sulcal effacement. Findings are seen along the vertex of the brain. Midline involving the parietal and frontal lobe on the left and involving the more posterior aspects of the parenchyma on the right. Changes are also noted more posteriorly involving the bilateral parietal and occipital lobes. Major intracranial flow voids are grossly patent. Globes and orbits are grossly unremarkable in appearance. Paranasal sinuses appear grossly clear. Mastoid air cells demonstrate no acute abnormality Impression: Impression: 1. Study is limited by motion 2. Diffusion weighted imaging demonstrates no acute diffusion restriction abnormality. 3. Increased FLAIR and T2 weighted signal with associated mild sulcal effacement involving predominantly the cortex of the bilateral occipital and parietal lobes with mild anterior extension involving the frontal lobes on the left. Findings are nonspecific and may represent PRES.. Underlying infecti on/encephalitis, cerebritis as well as metabolic disorders also a consideration. Please correlate clinically. Consider repeat imaging with contrast as clinically indicated. 4. No definite intracranial hemorrhage identified within the limitations of the exam. Electronically Signed: Johann Ramos MD 01/26/2025 6:37 AM EDT Workstation ID: [id number] CT Outside Head [[id number]] Resulted: 01/26/25238 Updated: 01/26/25238 Narrative: This procedure was auto-finalized with no dictation required. CT Outside Spine [[id number]] Resulted: 01/26/25238 Updated: 01/26/25238 Narrative: This procedure was auto-finalized with no dictation required. CT Outside Spine [[id number]] Resulted: 01/26/25238 Updated: 01/26/25238 Narrative: This procedure was auto-finalized with no dictation required. CT Outside Spine [[id number]] Resulted: 01/26/25237 Updated: 01/26/25237 Narrative: This procedure was auto-finalized with no dictation required. CT Outside Abd/Pelvis [[id number]] Resulted: 01/26/25237 Updated: 01/26/25237 Narrative: This procedure was auto-finalized with no dictation required. CT Outside Abd/Pelvis [[id number]] Resulted: 01/26/25236 Updated: 01/26/25236 Narrative: This procedure was auto-finalized with no dictation required. CT Outside Chest [[id number]] Resulted: 01/26/25236 Updated: 01/26/25236 Narrative: This procedure was auto-finalized with no dictation required. CT Angiogram Neck [[id number]] Collected: 01/26/25147 Updated: 01/26/25156 Narrative: CT ANGIOGRAM NECK, CT ANGIOGRAM HEAD W AI ANALYSIS OF LVO Date of Exam: 01/26/2025 1:15 AM EDT Indication: AMS, poss. SAH. Comparison: None available. Technique: CTA of the head and neck neck was performed after the uneventful intravenous administration of iodinated contrast. Reconstructed coronal and sagittal images were also obtained. In addition, a 3-D volume rendered image was created for interpretation. Automated exposure control and iterative reconstruction methods were used. Findings: This exam is significantly limited by motion artifact. The neck vasculature is not adequately evaluated. The proximal great vessels and aortic arch appear unremarkable. The proximal and mid portions of the common carotid arteries appear normal. The mid portions of the internal carotid arteries and the carotid bifurcation are suboptimally evaluated. The distal internal carotid arteries are widely patent. There is a normal appearance of the intracranial vasculature with no evidence of stenosis or aneurysm. There is no evidence of large vessel occlusion. Impression: Impression: Significantly limited exam due to motion artifact. The neck vasculature is not adequately evaluated. The intracranial vasculature is normal. There is no evidence of large vessel occlusion. Electronically Signed: Jesus Peterson MD 01/26/2025 1:54 AM EDT Workstation ID: [id number] CT Angiogram Head w AI Analysis of LVO [[id number]] Collected: 01/26/25147 Updated: 01/26/25156 Narrative: CT ANGIOGRAM NECK, CT ANGIOGRAM HEAD W AI ANALYSIS OF LVO Date of Exam: 01/26/2025 1:15 AM EDT Indication: AMS, poss. SAH. Comparison: None available. Technique: CTA of the head and neck neck was performed after the uneventful intravenous administration of iodinated contrast. Reconstructed coronal and sagittal images were also obtained. In addition, a 3-D volume rendered image was created for interpretation. Automated exposure control and iterative reconstruction methods were used. Findings: This exam is significantly limited by motion artifact. The neck vasculature is not adequately evaluated. The proximal great vessels and aortic arch appear unremarkable. The proximal and mid portions of the common carotid arteries appear normal. The mid portions of the internal carotid arteries and the carotid bifurcation are suboptimally evaluated. The distal internal carotid arteries are widely patent. There is a normal appearance of the intracranial vasculature with no evidence of stenosis or aneurysm. There is no evidence of large vessel occlusion. Impression: Impression: Significantly limited exam due to motion artifact. The neck vasculature is not adequately evaluated. The intracranial vasculature is normal. There is no evidence of large vessel occlusion. Electronically Signed: Jesus Peterson MD 01/26/2025 1:54 AM EDT Workstation ID: [id number] CT Head Without Contrast [[id number]] Collected: 01/26/25144 Updated: 01/26/25148 Narrative: CT HEAD WO CONTRAST Date of Exam: 01/26/2025 1:15 AM EDT Indication: AMS, poss. SAH. Comparison: None available. Technique: Axial CT images were obtained of the head without contrast administration. Automated exposure control and iterative construction methods were used. Findings: There is no evidence of hemorrhage. There is no mass effect or midline shift. There is no extracerebral collection. Ventricles are normal in size and configuration for patient's stated age. Posterior fossa is withinnormal limits. Calvarium and skull base appear intact. Visualized sinuses show no air fluid levels. Visualized orbits are unremarkable. Impression: Impression: No acute intracranial abnormality. Electronically Signed: Jesus Peterson MD 01/26/2025 1:46 AM EDT Workstation ID: [id number] PROBLEM LIST: Toxic metabolic encephalopathy Possible PRES H/o Hep C HTN Leukocytosis reactive H/o ileostomy Chronic pain and pain med abuse ASSESSMENT: Pt is 74 yo with chronic medical problems and pain med abuse and pain med seeking now with sp fall but no SAH and LP with no sign of meningitis and MRI and neurology eval with possible PRES and clinically imroving today D/c vanco/ceft and amp and can continue acyclovir prophylaxis PLAN: No sign of meningitis or infection at this time D/c ceft, vanco , ampicillin Back to prophylaxis acyclovir D/w pt family and nursing and pharmacy. This visit included the following complex service elements: Complex medical decision-making associated with antimicrobial prescribing. In-depth chart review with high level synthesis for complex diagnoses. Managed infection treatment protocol associated with transitions of care for this complex patient. I will sign off case today call if reval needed. Shailesh Shaikh MD 01/26/2025 * Olvin Peterson MD - 01/26/2025 12:54 PM EDTAssociated Order(s): IP CONSULT TO NEUROLOGY Images from the original note were not included. Neurology Referring provider: Provider, [place] [address] Reason for Consultation: Altered mental state Chief complaint: I want to be out of restraints History of present illness: 74-year-old woman seen for Dr. Bonds for evaluation of acute mental status changes. She was apparently in her usual state of good health until yesterday when she apparently snorted some oxycodone. She has done this apparently in the past but this episode was associated with seizure-like activity described by the . Brenda been unable to reach the today for further details. She was poorly responsive but has gotten gradually better. She is still been pulling out lines and having issues with her memory but otherwise seems to have returned to normal level of functioning. She was able to walk with physical therapist with moderate assistance and did not show any focal abnormalities. She denies headaches associated with episode although she has been treated for migraines in the past.. She was initially thought to have a subarachnoid hemorrhage which apparently is been disproven by the MRI scan. She is taking a variety of pain pills prescribed by Dr. Connor Yang. She is on tizanidine 4 mg 3 times daily, amitriptyline 50 mg once daily, Abilify 2 mg once daily, Cymbalta 120 mg daily, Dilaudid 4 mg 6 times a day, and oxycodone 10 also 6 times a day. She is not alert enough to tell me how she has been taking them but the prescriptions have been filled repeatedly. Denies street drugs. Past history suggests that she has a history of asthma. She has an ileostomy and apparently had first colonoscopy at age 36. At that time she had removal of 13 precancerous polyps. Presumably somewhere along the line she had a total colectomy related to multiple polyposis. Never had seizures before denies stroke history. Review of Systems: Patient can give some details but cannot remember why she had an ileostomy nor how she acquired hepatitis C which apparently now is resolved. Home meds: Medications Prior to Admission Medication Sig Dispense Refill Last Dose/Taking amLODIPine (NORVASC) 10 MG tablet TAKE 1 TABLET BY MOUTH ONCE DAILY (Patient taking differently: Take 0.5 tablets by mouth every night at bedtime.) 60 tablet 11 Patient Taking Differently atorvastatin (LIPITOR) 20 MG tablet Take 1 tablet by mouth Daily. (Patient taking differently: Take2 tablets by mouth Daily.) 90 tablet 1 Patient Taking Differently diphenoxylate-atropine (LOMOTIL) 2.5-0.025 MG per tablet Take 1 tablet by mouth 4 (Four) Times a Day As Needed for Diarrhea. (Patient taking differently: Take 1 tablet by mouth 3 (Three) Times a Day.) 240 tablet 2 Patient Taking Differently DULoxetine (CYMBALTA) 60 MG capsule Take 1 capsule by mouth Daily. (Patient taking differently: Take 2 capsules by mouth Daily.) Patient Taking Differently furosemide (LASIX) 40 MG tablet TAKE ONE TABLET BY MOUTH EVERY DAY (Patient taking differently: Take 1 tablet by mouth Daily As Needed (edema).) 30 tablet 11 Patient Taking Differently losartan (COZAAR) 25 MG tablet Take 1 tablet by mouth Every Morning Before Breakfast. (Patient taking differently: Take 3 tablets by mouth Every Morning Before Breakfast.) Patient Taking Differently amitriptyline (ELAVIL) 50 MG tablet Take 1 tablet by mouth Every Night. ARIPiprazole (ABILIFY) 2 MG tablet Take 1 tablet by mouth Daily. ciclopirox (LOPROX) 0.77 % suspension Apply 1 Application topically to the appropriate area as directed Every 12 (Twelve) Hours. Apply daily to affected toenail cloNIDine (CATAPRES) 0.1 MG tablet Take 1 tablet by mouth 2 (Two) Times a Day As Needed (anxiety). dicyclomine (BENTYL) 10 MG capsule Take 1 capsule by mouth 3 (Three) Times a Day As Needed for Abdominal Cramping. estradiol 0.25 MG/0.25GM gel Place 1 Application on the skin as directed by provider Daily. Fluticasone-Salmeterol (ADVAIR/WIXELA) 250-50 MCG/ACT DISKUS Inhale 1 puff 2 (Two) Times a Day. 60 each 5 HYDROmorphone (DILAUDID) 4 MG tablet Take 1 tablet by mouth Every 4 (Four) Hours As Needed for Moderate Pain. levothyroxine (SYNTHROID, LEVOTHROID) 25 MCG tablet Take 1 tablet by mouth Every Morning. oxyCODONE (OXY-IR) 5 MG capsule Take 1 capsule by mouth Every 4 (Four) Hours As Needed for ModeratePain. sulfamethoxazole-trimethoprim (BACTRIM DS,SEPTRA DS) 800-160 MG per tablet Take 1 tablet by mouth Daily. sulfamethoxazole-trimethoprim (BACTRIM,SEPTRA) 400-80 MG tablet Take 1 tablet by mouth Daily. tiZANidine (ZANAFLEX) 4 MG tablet Take 1 tablet by mouth Every 8 (Eight) Hours As Needed for MuscleSpasms. tretinoin (RETIN-A) 0.05 % cream Apply 1 Application topically to the appropriate area as directed Every Night. tretinoin (VESANOID) 10 MG chemo capsule Take by mouth 2 (Two) Times a Day. vitamin D (ERGOCALCIFEROL) 1.25 MG (43961 UT) capsule capsule Take 1 capsule by mouth 1 (One) Time Per Week. History Past Medical History: Diagnosis Date Acute blood loss anemia, mild, asymptomatic 07/19/2018 Acute postoperative pain 07/19/2018 Anxiety 1955 Anxiety and depression of lifeling duration Arthritis Asthma 1989 Well-cobtrolled with inhaled corticosteroids. Cholelithiasis Clostridium difficile infection 05/2017 hospitalized for 1 week Colon polyp 1989 First colonoscopy at age 36 resulted in removal iof 13 precancerous polyps. 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 Depression Headache 1989. Migraines became chronic and very diffucult to manage. Multiple treatment regimens were attempted. Some were helpful. Migraines ceased at menopause with few occasions thereafter. Heart murmur Hepatitis C history- currently tests negative by GI Hyperlipidemia Hypertension 2014 Drug treatment has been successful with a few recent episodic spijes in past 2-3 years. Hyponatremia, mild 07/19/2018 IBS (irritable bowel syndrome) Osteopenia 2001 Chronic, progressive cartilage breakdown. First total joint (L shoulder 2001). Since then have had all major joints replaced except L knee and R hip. R total hip scheduled 04/14/22. L knee to follow. Wears reading eyeglasses , Past Surgical History: Procedure Laterality Date BUNIONECTOMY Bilateral x2 SECTION COLONOSCOPY 2014 ENDOSCOPY JOINT REPLACEMENT Previously covered. LAPAROSCOPIC TUBAL LIGATION TOTAL HIP ARTHROPLASTY Left TOTAL SHOULDER ARTHROPLASTY Left TOTAL SHOULDER ARTHROPLASTY Right 07/18/2018 Procedure: TOTAL SHOULDER ARTHROPLASTY RIGHT; Surgeon: Bautista Luis MD; Location: [facility]; Service: Orthopedics TUBAL ABDOMINAL LIGATION 1989 , Family History Problem Relation Name Age of Onset Hyperlipidemia Mother Kathy Troy, and many others Cancer Mother Kathy Troy, and many others Dx @ age 65. Treated successfully with sentinal node biopsy followed by radiation. 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 Recurrence last month included metastisis throughout body Mental illness Mother Kathy Troy, and many others Mental illness has been a plague upon my maternal family, too many victims to catalog - alcoholism,drug addiction and od???s, sexual indiscretions, rage, etc., etc. Anxiety disorder Maternal Grandmother Kathy Troy Child abuser. Cancer Maternal Aunt Kathy Guy Diagnosed at age 70. Successfully treated with mastectomy and radiation. , Social History Tobacco Use Smoking status: Former Current packs/day: 0.00 Average packs/day: 0.5 packs/day for 5.0 years (2.5 ttl pk-yrs) Types: Cigarettes Start date: 04/02/2004 Quit date: 04/02/2009 Years since quittin.8 Smokeless tobacco: Never Vaping Use Vaping status: Never Used Substance Use Topics Alcohol use: Not Currently Comment: rarely Drug use: No and Allergies: Quinolones, Vital Signs Blood pressure 106/48, pulse 79, temperature 97.6 ??F (36.4 ??C), temperature source Axillary, resp. rate 17, height 160 cm (62.99 ), weight 81.4 kg (179 lb 7.3 oz), SpO2 100%, not currently . Body mass index is 31.8 kg/m??. Physical Exam: General: Awake and alert Head: No trauma Neck: Full range of motion Resp: Regular Cor: Regular rhythm with intermittent sinus tachycardia Extremities: 1+ edema Skin: Warm and dry Neuro: Mentally the patient is awake and alert. She is oriented to [facility] but cannot tell me how old she is. She can tell me where she lives. She also can tell me that she has a [employer] degree and advanced biology of some kind. Results Review: MRI of the brain without contrast was personally reviewed. She has no acute diffusion restriction. There is increased FLAIR and T2 weighted signal predominantly in the cortex of the bilateral occipital and parietal lobes more prominent on the left than the right with some anterior extension involving the frontal lobes on the left concerning for PRES. No changes are noted in the cerebellum however. EEG showed mild to moderate generalized slowing with no focal abnormalities or epileptic activity. Lumbar puncture was done at the outside hospital and showed 2 white cells, 1 red cell, protein of 100 and glucose of 105 Labs: Lab Results (last 48 hours) Procedure Component Value Units Date/Time POC Glucose Once [[id number]] Collected: 01/26/25 1219 Specimen: Blood Updated: 01/26/25 1222 Glucose 98 mg/dL Comment: Serial Number: [id number]: [id number] Amber Comment 1 Follow unit protocol STAT Lactic Acid, Reflex [[id number]] (Normal) Collected: 01/26/25 1044 Specimen: Blood Updated: 01/26/25 1133 Lactate 1.9 mmol/L Comment: Falsely depressed results may occur on samples drawn from patients receiving N-Acetylcysteine (NAC) or Metamizole. Hemoglobin A1c [[id number]] (Abnormal) Collected: 01/26/25650 Specimen: Blood from Arm, Right Updated: 01/26/25 0856 Hemoglobin A1C 5.67 % Narrative: Hemoglobin A1C Ranges: Increased Risk for Diabetes 5.7% to 6.4% Diabetes >= 6.5% Diabetic Goal < 7.0% Vancomycin, Random [[id number]] (Abnormal) Collected: 01/26/25650 Specimen: Blood from Arm, Right Updated: 01/26/25 0753 Vancomycin Random 42.10 mcg/mL Narrative: Therapeutic Ranges for Vancomycin Vancomycin Random 5.0-40.0 mcg/mL Vancomycin Trough 5.0-20.0 mcg/mL Vancomycin Peak 20.0-40.0 mcg/mL STAT Lactic Acid, Reflex [[id number]] (Abnormal) Collected: 01/26/25 0651 Specimen: Blood from Arm, Right Updated: 01/26/25 0724 Lactate 2.2 mmol/L Comment: Falsely depressed results may occur on samples drawn from patients receiving N-Acetylcysteine (NAC) or Metamizole. POC Glucose Once [[id number]] (Abnormal) Collected: 01/26/25 05 Specimen: Blood Updated: 01/26/25522 Glucose 134 mg/dL Comment: Serial Number: [id number]: [id number] POC Glucose Once [[id number]] (Abnormal) Collected: 01/26/25 0238 Specimen: Blood Updated: 01/26/25 0506 Glucose 150 mg/dL Comment: Serial Number: [id number]: [id number] High Sensitivity Troponin T 1Hr [[id number]] (Abnormal) Collected: 01/26/25 0328 Specimen: Blood Updated: 01/26/25 0357 HS Troponin T 22 ng/L Troponin T Numeric Delta -1 ng/L Troponin T % Delta -4 Narrative: High Sensitive Troponin T Reference Range: <14.0 ng/L- Negative Female for AMI <22.0 ng/L- Negative Male for AMI >=14 - Abnormal Female indicating possible myocardial injury. >=22 - Abnormal Male indicating possible myocardial injury. Clinicians would have to utilize clinical acumen, EKG, Troponin, and serial changes to determine if it is an Acute Myocardial Infarctionor myocardial injury due to an underlying chronic condition. Fentanyl, Urine - Indwelling Urethral Catheter [[id number]] (Normal) Collected: 01/26/25 025 Specimen: Urine from Indwelling Urethral Catheter Updated: 01/26/25 034 Fentanyl, Urine Negative Narrative: Negative Threshold: Fentanyl 5 ng/mL The normal value for the drug tested is negative. This report includes final unconfirmed screening results to be used for medical treatment purposes only. Unconfirmed results must not be used for non-medical purposes such as employment or legal testing. Clinicalconsideration should be applied to any drug of abuse test, particularly when unconfirmed results are used. Urine Drug Screen - Indwelling Urethral Catheter [[id number]] (Abnormal) Collected: 01/26/25256 Specimen: Urine from Indwelling Urethral Catheter Updated: 01/26/25326 THC, Screen, Urine Negative Phencyclidine (PCP), Urine Negative Cocaine Screen, Urine Negative Methamphetamine, Ur Negative Opiate Screen Negative Amphetamine Screen, Urine Negative Benzodiazepine Screen, Urine Negative Tricyclic Antidepressants Screen Positive Methadone Screen, Urine Negative Barbiturates Screen, Urine Negative Oxycodone Screen, Urine Positive Buprenorphine, Screen, Urine Negative Narrative: Cutoff For Drugs Screened: Amphetamines 500 ng/ml Barbiturates 200 ng/ml Benzodiazepines 150 ng/ml Cocaine 150 ng/ml Methadone 200 ng/ml Opiates 100 ng/ml Phencyclidine 25 ng/ml THC 50 ng/ml Methamphetamine 500 ng/ml Tricyclic Antidepressants 300 ng/ml Oxycodone 100 ng/ml Buprenorphine 10 ng/ml The normal value for all drugs tested is negative. This report includes unconfirmed screening results, with the cutoff values listed, to be used for medical treatment purposes only. Unconfirmed results must not be used for non- medical purposes such as employment or legal testing. Clinical consideration should be applied to any drug of abuse test, particularly when unconfirmed results are used. Urinalysis With Microscopic If Indicated (No Culture) - Indwelling Urethral Catheter [[id number]] (Abnormal) Collected: 01/26/25256 Specimen: Urine from Indwelling Urethral Catheter Updated: 01/26/25324 Color, UA Yellow Appearance, UA Clear pH, UA 5.5 Specific [place], UA >1.030 Glucose, UA Negative Ketones, UA Negative Bilirubin, UA Negative Blood, UA Moderate (2+) Protein, UA Trace Leuk Esterase, UA Small (1+) Nitrite, UA Negative Urobilinogen, UA 0.2 E.U./dL Urinalysis, Microscopic Only - Indwelling Urethral Catheter [[id number]] (Abnormal) Collected: 01/26/25256 Specimen: Urine from Indwelling Urethral Catheter Updated: 01/26/25324 RBC, UA 6-10 /HPF WBC, UA 11-20 /HPF Bacteria, UA None Seen /HPF Squamous Epithelial Cells, UA 0-2 /HPF Hyaline Casts, UA None Seen /LPF Methodology Automated Microscopy Blood Culture - Blood, Blood, Port [[id number]] Collected: 01/25/25 1400 Specimen: Blood, Port Updated: 01/26/25 0310 Blood Culture - Blood, Arm, Right [[id number]] Collected: 01/25/25 1405 Specimen: Blood from Arm, Right Updated: 01/26/25 0309 aPTT [[id number]] (Normal) Collected: 01/26/25208 Specimen: Blood Updated: 01/26/25255 PTT 26.2 seconds Narrative: PTT = The equivalent PTT values for the therapeutic range of heparin levels at 0.3 to 0.5 U/ml are 60 to 70 seconds. Protime-INR [[id number]] (Normal) Collected: 01/26/25208 Specimen: Blood Updated: 01/26/25255 Protime 13.9 Seconds INR 1.01 CK [[id number]] (Abnormal) Collected: 01/26/25208 Specimen: Blood Updated: 01/26/25249 Creatine Kinase 206 U/L Lipase [[id number]] (Normal) Collected: 01/26/25208 Specimen: Blood Updated: 01/26/25249 Lipase 20 U/L Lipid Panel [[id number]] (Abnormal) Collected: 01/26/25208 Specimen: Blood Updated: 01/26/25249 Total Cholesterol 209 mg/dL Triglycerides 149 mg/dL HDL Cholesterol 70 mg/dL LDL Cholesterol 113 mg/dL VLDL Cholesterol 26 mg/dL LDL/HDL Ratio 1.56 Narrative: Cholesterol Reference Ranges (U.S. Department of Health and Human Services ATP III Classifications) Desirable <200 mg/dL Borderline High 200-239 mg/dL High Risk >240 mg/dL Triglyceride Reference Ranges (U.S. Department of Health and Human Services ATP III Classifications) Normal <150 mg/dL Borderline High 150-199 mg/dL High 200-499 mg/dL Very High >500 mg/dL HDL Reference Ranges (U.S. Department of Health and Human Services ATP III Classifications) Low <40 mg/dl (major risk factor for CHD) High >60 mg/dl ('negative' risk factor for CHD) LDL Reference Ranges (U.S. Department of Health and Human Services ATP III Classifications) Optimal <100 mg/dL Near Optimal 100-129 mg/dL Borderline High 130-159 mg/dL High 160-189 mg/dL Very High >189 mg/dL LDL is calculated using the NIH LDL-C calculation. Magnesium [[id number]] (Normal) Collected: 01/26/25208 Specimen: Blood Updated: 01/26/25249 Magnesium 2.1 mg/dL Procalcitonin [[id number]] (Normal) Collected: 01/26/25208 Specimen: Blood Updated: 01/26/25249 Procalcitonin 0.15 ng/mL Narrative: As a Marker for Sepsis (Non-Neonates): 1. <0.5 ng/mL represents a low risk of severe sepsis and/or septic shock. 2. >2 ng/mL represents a high risk of severe sepsis and/or septic shock. As a Marker for Lower Respiratory Tract Infections that require antibiotic therapy: PCT on Admission Antibiotic Therapy 6-12 Hrs later >0.5 Strongly Recommended >0.25 - <0.5 Recommended 0.1 - 0.25 Discouraged Remeasure/reassess PCT <0.1 Strongly Discouraged Remeasure/reassess PCT As 28 day mortality risk marker: Change in Procalcitonin Result (>80% or <=80%) if Day 0 (or Day 1) and Day 4 values are available. Refer to http://[email or web address]-fmn-aavvbpvons.com Change in PCT <=80% A decrease of PCT levels below or equal to 80% defines a positive change in PCT test result representing a higher risk for 28-day all-cause mortality of patients diagnosed with severe sepsis for septic shock. Change in PCT >80% A decrease of PCT levels of more than 80% defines a negative change in PCT result representing a lower risk for 28-day all-cause mortality of patients diagnosed with severe sepsis or septic shock. High Sensitivity Troponin T [[id number]] (Abnormal) Collected: 01/26/25208 Specimen: Blood Updated: 01/26/25249 HS Troponin T 23 ng/L Narrative: High Sensitive Troponin T Reference Range: <14.0 ng/L- Negative Female for AMI <22.0 ng/L- Negative Male for AMI >=14 - Abnormal Female indicating possible myocardial injury. >=22 - Abnormal Male indicating possible myocardial injury. Clinicians would have to utilize clinical acumen, EKG, Troponin, and serial changes to determine if it is an Acute Myocardial Infarctionor myocardial injury due to an underlying chronic condition. TSH Rfx On Abnormal To Free T4 [[id number]] (Normal) Collected: 01/26/25208 Specimen: Blood Updated: 01/26/25249 TSH 1.430 uIU/mL Comprehensive Metabolic Panel [[id number]] (Abnormal) Collected: 01/26/25208 Specimen: Blood Updated: 01/26/25249 Glucose 154 mg/dL BUN 20.1 mg/dL Creatinine 1.30 mg/dL Sodium 142 mmol/L Potassium 3.9 mmol/L Chloride 107 mmol/L CO2 21.1 mmol/L Calcium 9.0 mg/dL Total Protein 6.9 g/dL Albumin 4.0 g/dL ALT (SGPT) 19 U/L AST (SGOT) 30 U/L Alkaline Phosphatase 120 U/L Total Bilirubin 0.4 mg/dL Globulin 2.9 gm/dL Comment: Calculated Result A/G Ratio 1.4 g/dL BUN/Creatinine Ratio 15.5 Anion Gap 13.9 mmol/L eGFR 43.5 mL/min/1.73 Narrative: GFR Categories in Chronic Kidney Disease (CKD) GFR Category GFR (mL/min/1.73) Interpretation G1 90 or greater Normal or high (1) G2 60-89 Mild decrease (1) G3a 45-59 Mild to moderate decrease G3b 30-44 Moderate to severe decrease G4 15-29 Severe decrease G5 14 or less Kidney failure (1)In the absence of evidence of kidney disease, neither GFR category G1 or G2 fulfill the criteriafor CKD. eGFR calculation 2020 CKD-EPI creatinine equation, which does not include race as a factor Phosphorus [[id number]] (Normal) Collected: 01/26/25208 Specimen: Blood Updated: 01/26/25249 Phosphorus 3.6 mg/dL CBC & Differential [[id number]] (Abnormal) Collected: 01/26/25208 Specimen: Blood Updated: 01/26/25247 Narrative: The following orders were created for panel order CBC & Differential. Procedure Abnormality Status --------- ------ Manual Differential[[id number]] Abnormal Final result CBC Auto Differential[[id number]] Abnormal Final result Please view results for these tests on the individual orders. Manual Differential [[id number]] (Abnormal) Collected: 01/26/25208 Specimen: Blood Updated: 01/26/25247 Neutrophil % 81.0 % Lymphocyte % 9.0 % Monocyte % 3.0 % Eosinophil % 0.0 % Basophil % 0.0 % Bands % 5.0 % Atypical Lymphocyte % 2.0 % Neutrophils Absolute 16.24 10*3/mm3 Lymphocytes Absolute 2.08 10*3/mm3 Monocytes Absolute 0.57 10*3/mm3 Eosinophils Absolute 0.00 10*3/mm3 Basophils Absolute 0.00 10*3/mm3 RBC Morphology Normal WBC Morphology Normal Platelet Morphology Normal CBC Auto Differential [[id number]] (Abnormal) Collected: 01/26/25208 Specimen: Blood Updated: 01/26/25247 WBC 18.88 10*3/mm3 RBC 3.98 10*6/mm3 Hemoglobin 11.6 g/dL Hematocrit 35.6 % MCV 89.4 fL MCH 29.1 pg MCHC 32.6 g/dL RDW 13.6 % RDW-SD 45.1 fl MPV 9.4 fL Platelets 411 10*3/mm3 Lactic Acid, Plasma [[id number]] (Abnormal) Collected: 01/26/25208 Specimen: Blood Updated: 01/26/25244 Lactate 2.7 mmol/L Comment: Falsely depressed results may occur on samples drawn from patients receiving N-Acetylcysteine (NAC) or Metamizole. LSAC Slide Creation [[id number]] Collected: 01/26/25208 Specimen: Blood Updated: 01/26/25230 Calcium, Ionized [[id number]] (Normal) Collected: 01/26/25208 Specimen: Blood Updated: 01/26/25221 Ionized Calcium 1.15 mmol/L Rads: Imaging Results (Last 48 Hours) Procedure Component Value Units Date/Time MRI Brain Without Contrast [[id number]] Collected: 01/26/25615 Updated: 01/26/25639 Narrative: MRI BRAIN WO CONTRAST Date of Exam: 01/26/2025 4:30 AM EDT Indication: Stroke, follow up Altered mental status, reported suspicion for SAH on OSH CT imaging. Comparison: CT 01/26/2025 and prior Technique: Routine multiplanar/multisequence sequence images of the brain were obtained without contrast administration. Findings: There is motion limitation. No acute diffusion restriction abnormality noted within the limitations of the study. No definite acute intracranial hemorrhage noted within the limitations of the exam. Midline structures of the brain, pituitary and sellar structures and craniocervical junction are grossly unremarkable. Mild increased cortical signal on FLAIR and T2 weighted imaging with associated sulcal effacement. Findings are seen along the vertex of the brain. Midline involving the parietal and frontal lobe on the left and involving the more posterior aspects of the parenchyma on the right. Changes are also noted more posteriorly involving the bilateral parietal and occipital lobes. Major intracranial flow voids are grossly patent. Globes and orbits are grossly unremarkable in appearance. Paranasal sinuses appear grossly clear. Mastoid air cells demonstrate no acute abnormality Impression: Impression: 1. Study is limited by motion 2. Diffusion weighted imaging demonstrates no acute diffusion restriction abnormality. 3. Increased FLAIR and T2 weighted signal with associated mild sulcal effacement involving predominantly the cortex of the bilateral occipital and parietal lobes with mild anterior extension involving the frontal lobes on the left. Findings are nonspecific and may represent PRES.. Underlying infecti on/encephalitis, cerebritis as well as metabolic disorders also a consideration. Please correlate clinically. Consider repeat imaging with contrast as clinically indicated. 4. No definite intracranial hemorrhage identified within the limitations of the exam. Electronically Signed: Johann Ramos MD 01/26/2025 6:37 AM EDT Workstation ID: [id number] CT Outside Head [[id number]] Resulted: 01/26/25238 Updated: 01/26/25238 Narrative: This procedure was auto-finalized with no dictation required. CT Outside Spine [[id number]] Resulted: 01/26/25238 Updated: 01/26/25238 Narrative: This procedure was auto-finalized with no dictation required. CT Outside Spine [[id number]] Resulted: 01/26/25238 Updated: 01/26/25238 Narrative: This procedure was auto-finalized with no dictation required. CT Outside Spine [[id number]] Resulted: 01/26/25237 Updated: 01/26/25237 Narrative: This procedure was auto-finalized with no dictation required. CT Outside Abd/Pelvis [[id number]] Resulted: 01/26/25237 Updated: 01/26/25237 Narrative: This procedure was auto-finalized with no dictation required. CT Outside Abd/Pelvis [[id number]] Resulted: 01/26/25236 Updated: 01/26/25236 Narrative: This procedure was auto-finalized with no dictation required. CT Outside Chest [[id number]] Resulted: 01/26/25236 Updated: 01/26/25236 Narrative: This procedure was auto-finalized with no dictation required. CT Angiogram Neck [[id number]] Collected: 01/26/25147 Updated: 01/26/25156 Narrative: CT ANGIOGRAM NECK, CT ANGIOGRAM HEAD W AI ANALYSIS OF LVO Date of Exam: 01/26/2025 1:15 AM EDT Indication: AMS, poss. SAH. Comparison: None available. Technique: CTA of the head and neck neck was performed after the uneventful intravenous administration of iodinated contrast. Reconstructed coronal and sagittal images were also obtained. In addition, a 3-D volume rendered image was created for interpretation. Automated exposure control and iterative reconstruction methods were used. Findings: This exam is significantly limited by motion artifact. The neck vasculature is not adequately evaluated. The proximal great vessels and aortic arch appear unremarkable. The proximal and mid portions of the common carotid arteries appear normal. The mid portions of the internal carotid arteries and the carotid bifurcation are suboptimally evaluated. The distal internal carotid arteries are widely patent. There is a normal appearance of the intracranial vasculature with no evidence of stenosis or aneurysm. There is no evidence of large vessel occlusion. Impression: Impression: Significantly limited exam due to motion artifact. The neck vasculature is not adequately evaluated. The intracranial vasculature is normal. There is no evidence of large vessel occlusion. Electronically Signed: Jesus Peterson MD 01/26/2025 1:54 AM EDT Workstation ID: [id number] CT Angiogram Head w AI Analysis of LVO [[id number]] Collected: 01/26/25147 Updated: 01/26/25156 Narrative: CT ANGIOGRAM NECK, CT ANGIOGRAM HEAD W AI ANALYSIS OF LVO Date of Exam: 01/26/2025 1:15 AM EDT Indication: AMS, poss. SAH. Comparison: None available. Technique: CTA of the head and neck neck was performed after the uneventful intravenous administration of iodinated contrast. Reconstructed coronal and sagittal images were also obtained. In addition, a 3-D volume rendered image was created for interpretation. Automated exposure control and iterative reconstruction methods were used. Findings: This exam is significantly limited by motion artifact. The neck vasculature is not adequately evaluated. The proximal great vessels and aortic arch appear unremarkable. The proximal and mid portions of the common carotid arteries appear normal. The mid portions of the internal carotid arteries and the carotid bifurcation are suboptimally evaluated. The distal internal carotid arteries are widely patent. There is a normal appearance of the intracranial vasculature with no evidence of stenosis or aneurysm. There is no evidence of large vessel occlusion. Impression: Impression: Significantly limited exam due to motion artifact. The neck vasculature is not adequately evaluated. The intracranial vasculature is normal. There is no evidence of large vessel occlusion. Electronically Signed: Jesus Peterson MD 01/26/2025 1:54 AM EDT Workstation ID: [id number] CT Head Without Contrast [[id number]] Collected: 01/26/25144 Updated: 01/26/25148 Narrative: CT HEAD WO CONTRAST Date of Exam: 01/26/2025 1:15 AM EDT Indication: AMS, poss. SAH. Comparison: None available. Technique: Axial CT images were obtained of the head without contrast administration. Automated exposure control and iterative construction methods were used. Findings: There is no evidence of hemorrhage. There is no mass effect or midline shift. There is no extracerebral collection. Ventricles are normal in size and configuration for patient's stated age. Posterior fossa is withinnormal limits. Calvarium and skull base appear intact. Visualized sinuses show no air fluid levels. Visualized orbits are unremarkable. Impression: Impression: No acute intracranial abnormality. Electronically Signed: Jesus Peterson MD 01/26/2025 1:46 AM EDT Workstation ID: [id number] Assessment: Encephalopathy with possible seizure, improving. Episode of uncontrolled hypertension. Abnormal MRI suggestive of PRES. Multiple opiate use all prescribed by Dr. Gomez who I assume is pain physician Plan: Continue to monitor blood pressure. MRI brain with infusion. Continue Keppra for now. Comment: Presentation is is fairly typical of a hypertensive crisis however the MRI scan is a little unusualfor PRES Like to review and have that reviewed with Dr. Lmi who was looking at it later today. Patient has a completely normal neurologic exam other than her memory and seems to be making significant improvement. I discussed the patient's findings and my recommendations with patient, nursing staff, and primary care team Olvin Peterson MD 01/26/25 12:54 EDT * Celine Hoffmann RN - 01/26/2025 11:37 AM EDTAssociated Order(s): IP CONSULT FOR PICC Summary: PICC PLACEMENT Placed by Shantel Hoffmann RN - RUE triple lumen PICC confirmed with 3cg. * Tremaine Guzman RN - 01/26/2025 9:31 AM EDT Chart review for asthma educator consult. At the time of this review patient A1c is 5.67 , they have no noted history of diabetes and no homemedications noted for treatment of diabetes. At this time we do not feel the patient would benefit from diabetes education. Thank you for this consult, should patient needs change please re consult us. * Rayshawn Hercules PA-C - 01/26/2025 1:55 AM EDT Stroke Consult Note Patient Name: Farrah Atkinson Age: 74 y.o. Sex: female : 1950 Primary Care Physician: Timothy Granda DO Referring Physician: [facility] ICU Provider Handedness: Unknown Race: Chief Complaint/Reason for Consultation: Altered mental status HPI Last Known Normal Date/Time: Unknown This patient is a 74-year-old female with past medical history significant for hypertension, hyperlipidemia, remote hep C, anxiety/depression, chronic pain, and reported polysubstance use who was admitted to [facility] with altered mental status. Spoke to [facility] Provider who was able to provide only limited history. ED Provider reportedly had suspicion for opiate/benzodiazepine use and gave reversal medications . Following medication administration, patient reportedly had a seizure and was loaded with 2 g Keppra and admitted to [facility]. CT imaging with and without contrast was obtained. Noncontrast CTh reportedly showed suspicion for trace SAH. LP was performed at OSH with results detailed below. Transfer to [facility] for higher level of care was requested in setting of finding of possible SAH. Patient was seen and examined immediately on arrival to [facility]. Patient is not alert but arouses easily to verbal stimuli. Patient does not follow commands. Patient answers only yes to all questions. Speech is clear with no evidence of dysarthria. Pupils are equal and reactive. Blink to threat present bilaterally. EOMs appear to spontaneously move through all mejía bilaterally. No gross facial asymmetry at rest. Patient moves all extremities spontaneously. All limbs fall to bed after passive raise. Patient localizes to mild noxious stimuli in all extremities. NIH score 13. Stat CTh and CTA H/N were obtained on arrival to [facility]. Imaging was significantly motion degraded but showed no evidence of SAH or other acute abnormality. MRI brain without contrast is pending. Patient will remain admitted to the ICU for close neurologic monitoring. Review of Systems Unable to perform ROS: Mental status change Objective Neurological Exam Mental Status Arousable to verbal stimuli. Speech is normal. Mixed aphasia present. Patient answers yes to all questions. Does not follow commands.. Cranial Nerves CN II: Does not follow commands for visual mejía assessment, blink to threat present bilaterally. CN III, IV, : Pupils equal round and reactive to light bilaterally. Does not follow commands for EOM assessment, eyes appear to spontaneously move through all mejía bilaterally.. CN VII: No gross facial asymmetry at rest, does not smile to command. CN VIII: Hearing grossly intact bilaterally. Motor Normal muscle bulk throughout. Normal muscle tone. Patient does not follow commands, all limbs fall to bed after passive raise. Patient moves all extremities spontaneously. Sensory Localizes to mild noxious stimuli in all extremities. Physical Exam Constitutional: General: She is not in acute distress. HENT: Head: Normocephalic and atraumatic. Mouth/Throat: Mouth: Mucous membranes are moist. Eyes: Pupils: Pupils are equal, round, and reactive to light. Cardiovascular: Rate and Rhythm: Normal rate and regular rhythm. Pulmonary: Effort: Pulmonary effort is normal. Musculoskeletal: General: No swelling or deformity. Skin: General: Skin is warm and dry. Psychiatric: Speech: Speech normal. Temp: [98.2 ??F (36.8 ??C)] 98.2 ??F (36.8 ??C) Heart Rate: [118] 118 Resp: [18] 18 BP: (149)/(49) 149/49 Past Medical History: Diagnosis Date Acute blood loss anemia, mild, asymptomatic 07/19/2018 Acute postoperative pain 07/19/2018 Anxiety 1955 Anxiety and depression of lifeling duration Arthritis Asthma 1989 Well-cobtrolled with inhaled corticosteroids. Cholelithiasis Clostridium difficile infection 05/2017 hospitalized for 1 week Colon polyp 1989 First colonoscopy at age 36 resulted in removal iof 13 precancer[address] polyps[address] 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 Depression Headache 1989. Migraines became chronic and very diffucult to manage. Multiple treatment regimens were attempted. Some were helpful. Migraines ceased at menopause with few occasions thereafter. Heart murmur Hepatitis C history- currently tests negative by GI dr Hyperlipidemia Hypertension 2014 Drug treatment has been successful with a few recent episodic spijes in past 2-3 years. Hyponatremia, mild 07/19/2018 IBS (irritable bowel syndrome) Osteopenia 2001 Chronic, progressive cartilage breakdown. First total joint (L shoulder 2001). Since then have had all major joints replaced except L knee and R hip. R total hip scheduled 04/14/22. L knee to follow. Wears reading eyeglasses Past Surgical History: Procedure Laterality Date BUNIONECTOMY Bilateral x2 SECTION COLONOSCOPY 2014 ENDOSCOPY JOINT REPLACEMENT Previously covered. LAPAROSCOPIC TUBAL LIGATION TOTAL HIP ARTHROPLASTY Left TOTAL SHOULDER ARTHROPLASTY Left TOTAL SHOULDER ARTHROPLASTY Right 07/18/2018 Procedure: TOTAL SHOULDER ARTHROPLASTY RIGHT; Surgeon: Bautista Luis MD; Location: [facility] OR; Service: Orthopedics TUBAL ABDOMINAL LIGATION 1989 Family History Problem Relation Name Age of Onset Hyperlipidemia Mother Kathy Troy, and many others Cancer Mother Kathy Troy, and many others Dx @ age 65. Treated successfully with sentinal node biopsy followed by radiation. 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 Recurrence last month included metastisis throughout body Mental illness Mother Kathy Troy, and many others Mental illness has been a plague upon my maternal family, too many victims to catalog - alcoholism,drug addiction and od???s, sexual indiscretions, rage, etc., etc. Anxiety disorder Maternal Grandmother Kathy Troy Child abuser. Cancer Maternal Aunt Kathy Guy Diagnosed at age 70. Successfully treated with mastectomy and radiation. Social History Socioeconomic History Marital status: Tobacco Use Smoking status: Former Current packs/day: 0.00 Average packs/day: 0.5 packs/day for 5.0 years (2.5 ttl pk-yrs) Types: Cigarettes Start date: 04/02/2004 Quit date: 04/02/2009 Years since quittin.8 Smokeless tobacco: Never Vaping Use Vaping status: Never Used Substance and Sexual Activity Alcohol use: Not Currently Comment: rarely Drug use: No Sexual activity: Yes Partners: Male control/protection: Surgical Allergies Allergen Reactions Quinolones Other (See Comments) Fluoroquinolones- knee tendon, extreme pain and risk of rupture. Prior to Admission medications Medication Sig Start Date End Date Taking? Authorizing Provider acyclovir (ZOVIRAX) 400 MG tablet TAKE 1 TABLET BY MOUTH 2 (TWO) TIMES A DAY. 12/13/22 Connor Nunez MD amLODIPine (NORVASC) 10 MG tablet TAKE 1 TABLET BY MOUTH ONCE DAILY 11/28/21 Connor Nunez MD atorvastatin (LIPITOR) 20 MG tablet Take 1 tablet by mouth Daily. 03/13/22 Connor Nunez MD cloNIDine (CATAPRES) 0.1 MG tablet Take 1 tablet by mouth 2 (Two) Times a Day As Needed (anxiety). 08/04/21 Jean-Claude Traylor MD diphenoxylate-atropine (LOMOTIL) 2.5-0.025 MG per tablet Take 1 tablet by mouth 4 (Four) Times a Day As Needed for Diarrhea. 03/13/22 Connor Nunez MD DULoxetine (CYMBALTA) 60 MG capsule Take 1 capsule by mouth Daily. 07/25/21 Jean-Claude Traylor MD Fluticasone-Salmeterol (ADVAIR/WIXELA) 250-50 MCG/ACT DISKUS Inhale 1 puff 2 (Two) Times a Day. 03/13/22 Connor Nunez MD furosemide (LASIX) 40 MG tablet TAKE ONE TABLET BY MOUTH EVERY DAY 08/08/21 Connor Nunez MD losartan (COZAAR) 25 MG tablet Take 1 tablet by mouth Every Morning Before Breakfast. 05/25/22 Jean-Claude Traylor MD losartan (COZAAR) 50 MG tablet Take 1 tablet by mouth Every Night. 06/09/22 Jean-Claude Traylor MD potassium chloride (K-DUR,KLOR-CON) 20 MEQ CR tablet TAKE 1 TABLET BY MOUTH TWICE DAILY WITH FOOD 01/22/23 Connor Nunez MD Acute Stroke Data Thrombolytic Inclusion / Exclusion Criteria Person Administering Scale: Rayshawn Hercules PA-C YES NO INCLUSION CRITERIA CLASS I [] [] Suspected diagnosis of acute ischemic stroke with measureable neurological deficit. Low NIHSS with disabling stroke symptoms. [] [] Onset of stroke symptoms < 3 hours before beginning treatment >/ 18 years old Stroke symptom onset = time patient was last seen well or without symptoms (LKW) [] [] Onset of symptoms between 3-4.5 hours: >/= 80 years old (safe Class IIa) with history of both diabetes and prior CVA (reasonable Class IIb) AND NIHSS </= 25 *If not eligible for IV Thrombolytic consider neuro intervention for LKW within 24 hours YES NO EXCLUSION CRITERIA (CONTRAINDICATIONS) CLASS III EVIDENCE HARM [] [] Blood pressure >185/110 medically refractory to IV medications [] [] Active bleeding at a non-compressible site [x] [] Active intracranial hemorrhage (ICH) [] [] Symptoms suggestive of subarachnoid hemorrhage (SAH) [] [] GI bleed within 21 days [] [] Ischemic stroke within 3 months [] [] Severe head trauma within 3 months [] [] Intracranial or intraspinal surgery within 3 months [] [] Current GI malignancy [] [] Intracranial neoplasm [] [] Infective endocarditis [] [] Aortic arch dissection [] [] Active coagulopathy with INR >1.7, platelets <100,000, PTT > 40 sec, PT > 15 sec *For warfarin, administration can begin before blood tests resulted. Discontinue for above values. [] [] Treatment dose* of LMWH (Lovenox) in last 24 hours *prophylactic dosages are not a contraindication [] [] Concurrent use of antiplatelet agents' glycoprotein inhibitors IIb/IIIa (Integrilin, etc.) [] [] Thrombin or factor Xa inhibitors (Eliquis, Xarelto, Arixtra) taken in last 48 hours YES NO CLASS II: AIS WITH THE FOLLOWING CONDITIONS - TREATMENT RISKS SHOULD BE WEIGHED AGAINST POSSIBLE BENEFITS. [] [] Major trauma in last 14 days, recent major surgery in last 14 days, intracranial arterial dissection, giant unruptured and unsecured intracranial aneurysm, pericarditis [] [] The risks and benefits have been discussed with the patient or family related to the administration of IV thrombolytic therapy for stroke symptoms. [] [] I have discussed and reviewed the patient's case and imaging with the attending prior to IV thrombolytic therapy. TIME N/A Time IV thrombolytic administered MODIFIED DIMITRY SCALE (to be assessed for each patient having history of stroke) []Stroke history but not assessed [x]0: No symptoms at all []1: No significant disability despite symptoms []2: Slight disability []3: Moderate disability []4: Moderately severe disability []5: Severe disability []6: NIH Stroke Scale Time: 0120 Person Administering Scale: Rayshawn Hercules PA-C 1a Level of consciousness: 1=not alert but arousable by minor stimulation to obey, answer or respond 1b. LOC questions: 2=Performs neither task correctly 1c. LOC commands: 2=Performs neither task correctly 2. Best Gaze: 0=normal 3. Visual: 0=No visual loss 4. Facial Palsy: 0=Normal symmetric movement 5a. Motor left arm: 2=Some effort against gravity, limb cannot get to or maintain (if cured) 90 (or45) degrees, drifts down to bed, but has some effort against gravity 5b. Motor right arm: 2=Some effort against gravity, limb cannot get to or maintain (if cured) 90 (or 45) degrees, drifts down to bed, but has some effort against gravity 6a. motor left le=Some effort against gravity, limb cannot get to or maintain (if cured) 90 (or45) degrees, drifts down to bed, but has some effort against gravity 6b Motor right le=Some effort against gravity, limb cannot get to or maintain (if cured) 90 (or45) degrees, drifts down to bed, but has some effort against gravity 7. Limb Ataxia: 0=Absent 8. Sensory: 0=Normal; no sensory loss 9. Best Language: 0=No aphasia, normal 10. Dysarthria: 0=Normal 11. Extinction and Inattention: 0=No abnormality Total: 13 Hospital Meds Scheduled- cefTRIAXone, 1,000 mg, Intravenous, Q24H levETIRAcetam, 500 mg, Intravenous, Q12H mupirocin, 1 Application, Each Nare, BID sodium chloride, 10 mL, Intravenous, Q12H sodium chloride, 10 mL, Intravenous, Q12H Infusions- niCARdipine, 5-15 mg/hr Pharmacy to dose vancomycin, PRNs- senna-docusate sodium AND polyethylene glycol AND bisacodyl AND bisacodyl Pharmacy to dose vancomycin sodium chloride sodium chloride sodium chloride sodium chloride Results Reviewed I have personally reviewed current lab, radiology, and data and agree with results. CT Angiogram Neck Result Date: 01/26/2025 Impression: Significantly limited exam due to motion artifact. The neck vasculature is not adequately evaluated. The intracranial vasculature is normal. There is no evidence of large vessel occlusion. Electronically Signed: Jesus Peterson MD 01/26/2025 1:54 AM EDT Workstation ID: [id number] CT Angiogram Head w AI Analysis of LVO Result Date: 01/26/2025 Impression: Significantly limited exam due to motion artifact. The neck vasculature is not adequately evaluated. The intracranial vasculature is normal. There is no evidence of large vessel occlusion. Electronically Signed: Jesus Peterson MD 01/26/2025 1:54 AM EDT Workstation ID: [id number] CT Head Without Contrast Result Date: 01/26/2025 Impression: No acute intracranial abnormality. Electronically Signed: Jesus Peterson MD 01/26/2025 1:46 AM EDT Workstation ID: [id number] Assessment and Plan This patient is a 74-year-old female with risk factors significant for HTN, HLD, remote hep C, anxiety/depression, chronic pain, and reported polysubstance use. Patient reportedly presented to OSH with altered mental status. There was initial concern for opiate/benzodiazepine use and reversal medications were reportedly administered. Patient had a seizure following medication administration andwas loaded with [address] imaging was reportedly concerning for possible trace SAH. LP wasalso performed at OSH, results as above. Patient was transferred to [facility] for higher level of care. On arrival to [facility], NIH score was 13 for altered mental status, no focal neurologic deficits appreciated. Stat CT imaging was obtained on arrival to [facility] which were motion degraded but showed no evidenceof SAH or other acute abnormality. LP at OSH 01/25/2025: WBC 2, RBC 1, glucose 105, protein 100, Gram stain and culture pending Antiplatelet SECURITY SYSTEMS SPECIALIST: None Anticoagulant SECURITY SYSTEMS SPECIALIST: None Acute encephalopathy Possible SAH reported on OSH CT imaging -Suspect etiology of acute encephalopathy is TME. Suspect reported SAH on OSH CT imaging is residual contrast. -Hemorrhagic order set initiated for now pending MRI results. Can de-escalate hemorrhagic order setif MRI shows no evidence of hemorrhage. -Stat MRI brain without contrast pending -Consider general neurology consult in the morning if MRI negative for stroke or hemorrhage. -Routine EEG in the morning -Hold all antiplatelet and anticoagulant medications -Patient s/p 2 g Keppra load at OSH ED. Continue Keppra 500 mg twice daily for now. -Goal SBP < 140, recommend Cardene if pharmacologic control is needed -NPO pending bedside swallow eval -TTE pending -Lipid panel pending, goal LDL < 70, start atorvastatin 80 mg nightly -A1c pending -Serial neurochecks per policy, stat CTh for any acute neurological change -PT/OT/POST ACUTE CARE NURSE PRACTITIONER as appropriate Disposition: Patient is admitted to the ICU Case discussed with the patient, bedside RN, and [facility] ICU Providers. Thank you for the consult. Stroke neurology will continue to follow. Rayshawn Hercules PA-C [facility] [place] Stroke Neurology Cosigned by Rayshawn Camp MD at 01/26/2025 10:39 AM EDT Associated attestation - Rayshawn Camp MD - 01/26/2025 10:39 AM EDT There is no evidence of SAH on CTH performed at [facility]. MRI did not reveal evidence of acute infarct, however imaging was more concerning PRES vs encephalitis vs cerebritis vs other. Will defer further workup and recommendations to the General Neurology team. Rayshawn Camp MD Vascular Neurologist [facility] documented in this encounter Nursing Notes * Shweta Wilson RN - 01/29/2025 11:44 AM EDT Prior to central line removal, order for the removal of catheter was verified, patient was assessed, necessary materials were gathered and patient was educated regarding procedure . Patient was positioned supine to ensure that the insertion site was at or below the level of the heart. Hands were washed, clean gloves were applied and central line dressing was gently removed. Catheterexit site was not cultured. A new pair of clean gloves were then applied. Insertion site was cleansed with 2% Chlorhexidine swab using a circular motion beginning at the insertion site and moving outward for 30 seconds and allowed to dry. Clamp on line was not present. Patient was instructed to hold breath as catheter was withdrawn. The central line was grasped at the insertion site and slowly pulled outward parallel to the skin. Resistance was not met. After central line was completely removed, a sterile 4x4 gauze pad was used to apply light pressureuntil bleeding stopped. At that time, petroleum-based gauze and a sterile occlusive dressing was applied to exit site. Patient was instructed to keep dressing in place for at least 24 hours and to remain in a flat or reclining position for 30 minutes post-removal. Catheter was inspected after removal and was intact. Tip of central line was not sent for culture. Patient tolerated procedure. * Mary Wu RN - 01/29/2025 5:36 AM EDT Problem: Adult Inpatient Plan of Care Goal: Plan of Care Review Outcome: Progressing Goal: Patient-Specific Goal (Individualized) Outcome: Progressing Goal: Absence of Hospital-Acquired Illness or Injury Outcome: Progressing Intervention: Identify and Manage Fall Risk Recent Flowsheet Documentation Taken 01/29/2025 0400 by Mary Wu RN Safety Promotion/Fall Prevention: activity supervised assistive device/personal items within reach clutter free environment maintained fall prevention program maintained lighting adjusted nonskid shoes/slippers when out of bed room organization consistent safety round/check completed Taken 01/29/2025 0200 by Mary Wu RN Safety Promotion/Fall Prevention: activity supervised assistive device/personal items within reach clutter free environment maintained fall prevention program maintained lighting adjusted nonskid shoes/slippers when out of bed room organization consistent safety round/check completed Taken 01/29/2025 0000 by Mary Wu RN Safety Promotion/Fall Prevention: activity supervised assistive device/personal items within reach clutter free environment maintained fall prevention program maintained lighting adjusted nonskid shoes/slippers when out of bed room organization consistent safety round/check completed Taken 01/28/20252199 by Mary Wu RN Safety Promotion/Fall Prevention: activity supervised assistive device/personal items within reach clutter free environment maintained fall prevention program maintained lighting adjusted nonskid shoes/slippers when out of bed room organization consistent safety round/check completed Taken 01/28/20251999 by Mary Wu RN Safety Promotion/Fall Prevention: activity supervised assistive device/personal items within reach clutter free environment maintained fall prevention program maintained lighting adjusted nonskid shoes/slippers when out of bed room organization consistent safety round/check completed Intervention: Prevent Skin Injury Recent Flowsheet Documentation Taken 01/29/2025 0400 by Mary Wu RN Body Position: position changed independently Skin Protection: incontinence pads utilized silicone border foam - heel silicone border foam - sacrum/coccyx Taken 01/29/2025 0200 by Mary Wu RN Body Position: position changed independently Skin Protection: incontinence pads utilized silicone border foam - heel silicone border foam - sacrum/coccyx Taken 01/29/2025 0000 by Mary Wu RN Body Position: position changed independently Skin Protection: incontinence pads utilized silicone border foam - heel silicone border foam - sacrum/coccyx Taken 01/28/20250 by Mary Wu RN Body Position: position changed independently Skin Protection: incontinence pads utilized silicone border foam - heel silicone border foam - sacrum/coccyx Taken 01/28/20251999 by Mary Wu RN Body Position: position changed independently Skin Protection: incontinence pads utilized silicone border foam - heel silicone border foam - sacrum/coccyx Intervention: Prevent and Manage VTE (Venous Thromboembolism) Risk Recent Flowsheet Documentation Taken 01/28/20251999 by Mary Wu RN VTE Prevention/Management: bilateral SCDs (sequential compression devices) on Intervention: Prevent Infection Recent Flowsheet Documentation Taken 01/29/2025 0400 by Mary Wu RN Infection Prevention: environmental surveillance performed equipment surfaces disinfected hand hygiene promoted personal protective equipment utilized rest/sleep promoted Taken 01/29/2025 0200 by Mary Wu RN Infection Prevention: environmental surveillance performed equipment surfaces disinfected hand hygiene promoted personal protective equipment utilized rest/sleep promoted Taken 01/29/2025 0000 by Mary Wu RN Infection Prevention: environmental surveillance performed equipment surfaces disinfected hand hygiene promoted personal protective equipment utilized rest/sleep promoted Taken 01/28/2025 2200 by Mary Wu RN Infection Prevention: environmental surveillance performed equipment surfaces disinfected hand hygiene promoted personal protective equipment utilized rest/sleep promoted Taken 01/28/20251999 by Mary uW RN Infection Prevention: environmental surveillance performed equipment surfaces disinfected hand hygiene promoted personal protective equipment utilized rest/sleep promoted Goal: Optimal Comfort and Wellbeing Outcome: Progressing Intervention: Monitor Pain and Promote Comfort Recent Flowsheet Documentation Taken 01/28/2025 2113 by Mary Wu RN Pain Management Interventions: pain medication given Intervention: Provide Person-Centered Care Recent Flowsheet Documentation Taken 01/28/20251999 by Mary Wu RN Trust Relationship/Rapport: care explained Goal: Readiness for Transition of Care Outcome: Progressing Problem: Skin Injury Risk Increased Goal: Skin Health and Integrity Outcome: Progressing Intervention: Optimize Skin Protection Recent Flowsheet Documentation Taken 01/29/2025 0400 by Mary Wu RN Activity Management: activity encouraged Pressure Reduction Techniques: frequent weight shift encouraged weight shift assistance provided Head of Bed (HOB) Positioning: HOB elevated Pressure Reduction Devices: positioning supports utilized pressure-redistributing mattress utilized specialty bed utilized Skin Protection: incontinence pads utilized silicone border foam - heel silicone border foam - sacrum/coccyx Taken 01/29/2025 0200 by Mary Wu RN Activity Management: activity encouraged Pressure Reduction Techniques: frequent weight shift encouraged weight shift assistance provided Head of Bed ([facility]) Positioning: [facility] elevated Pressure Reduction Devices: positioning supports utilized pressure-redistributing mattress utilized specialty bed utilized Skin Protection: incontinence pads utilized silicone border foam - heel silicone border foam - sacrum/coccyx Taken 01/29/2025 0000 by Mary Wu RN Activity Management: activity encouraged Pressure Reduction Techniques: frequent weight shift encouraged weight shift assistance provided Head of Bed ([facility]) Positioning: [facility] elevated Pressure Reduction Devices: positioning supports utilized pressure-redistributing mattress utilized specialty bed utilized Skin Protection: incontinence pads utilized silicone border foam - heel silicone border foam - sacrum/coccyx Taken 01/28/2025 2200 by Mary Wu RN Activity Management: activity encouraged Pressure Reduction Techniques: frequent weight shift encouraged weight shift assistance provided Head of Bed ([facility]) Positioning: [facility] elevated Pressure Reduction Devices: positioning supports utilized pressure-redistributing mattress utilized specialty bed utilized Skin Protection: incontinence pads utilized silicone border foam - heel silicone border foam - sacrum/coccyx Taken 01/28/2025 2000 by Mary Wu RN Activity Management: activity encouraged Pressure Reduction Techniques: frequent weight shift encouraged weight shift assistance provided Head of Bed ([facility]) Positioning: [facility] elevated Pressure Reduction Devices: positioning supports utilized pressure-redistributing mattress utilized specialty bed utilized Skin Protection: incontinence pads utilized silicone border foam - heel silicone border foam - sacrum/coccyx Problem: Restraint, Nonviolent Goal: Absence of Harm or Injury Outcome: Progressing Intervention: Implement Least Restrictive Safety Strategies Recent Flowsheet Documentation Taken 01/29/2025 0400 by Mary Wu RN Stenocaptioner Protection: tubing secured Taken 01/29/2025 0200 by Mary Wu RN Stenocaptioner Protection: tubing secured Taken 01/29/2025 0000 by aMry Wu RN Stenocaptioner Protection: tubing secured Taken 01/28/2025 2200 by Mary Wu RN Stenocaptioner Protection: tubing secured Taken 01/28/20251999 by Mary Wu RN Stenocaptioner Protection: tubing secured Diversional Activities: television Intervention: Protect Dignity, Rights and Personal Wellbeing Recent Flowsheet Documentation Taken 01/28/20251999 by Mary Wu RN Trust Relationship/Rapport: care explained Intervention: Protect Skin and Joint Integrity Recent Flowsheet Documentation Taken 01/29/2025 0400 by Mary Wu RN Body Position: position changed independently Skin Protection: incontinence pads utilized silicone border foam - heel silicone border foam - sacrum/coccyx Taken 01/29/2025 0200 by Mary Wu RN Body Position: position changed independently Skin Protection: incontinence pads utilized silicone border foam - heel silicone border foam - sacrum/coccyx Taken 01/29/2025 0000 by Mary Wu RN Body Position: position changed independently Skin Protection: incontinence pads utilized silicone border foam - heel silicone border foam - sacrum/coccyx Taken 01/28/2025 2200 by Mary Wu RN Body Position: position changed independently Skin Protection: incontinence pads utilized silicone border foam - heel silicone border foam - sacrum/coccyx Taken 01/28/20251999 by Mary Wu RN Body Position: position changed independently Skin Protection: incontinence pads utilized silicone border foam - heel silicone border foam - sacrum/coccyx Problem: Violence Risk or Actual Goal: Anger and Impulse Control Outcome: Progressing Intervention: Minimize Safety Risk Recent Flowsheet Documentation Taken 01/29/2025 0400 by Mary Wu RN Enhanced Safety Measures: bed alarm set Taken 01/29/2025 0200 by Mary Wu RN Enhanced Safety Measures: bed alarm set Taken 01/29/2025 0000 by Mary Wu RN Enhanced Safety Measures: bed alarm set Taken 01/28/2025 2200 by Mary Wu RN Enhanced Safety Measures: bed alarm set Taken 01/28/20251999 by Mary Wu RN Enhanced Safety Measures: bed alarm set Problem: Fall Injury Risk Goal: Absence of Fall and Fall-Related Injury Outcome: Progressing Intervention: Identify and Manage Contributors Recent Flowsheet Documentation Taken 01/29/2025 0400 by Mary Wu RN Self-Care Promotion: independence encouraged BADL personal objects within reach Taken 01/29/2025 0200 by Mary Wu RN Self-Care Promotion: independence encouraged BADL personal objects within reach Taken 01/29/2025 0000 by Mary Wu RN Self-Care Promotion: independence encouraged BADL personal objects within reach Taken 01/28/2025 2200 by Mary Wu RN Self-Care Promotion: independence encouraged BADL personal objects within reach Taken 01/28/20251999 by Mary Wu RN Medication Review/Management: medications reviewed Self-Care Promotion: independence encouraged BADL personal objects within reach Intervention: Promote Injury-Free Environment Recent Flowsheet Documentation Taken 01/29/2025 0400 by Mary Wu RN Safety Promotion/Fall Prevention: activity supervised assistive device/personal items within reach clutter free environment maintained fall prevention program maintained lighting adjusted nonskid shoes/slippers when out of bed room organization consistent safety round/check completed Taken 01/29/2025 0200 by Mary Wu RN Safety Promotion/Fall Prevention: activity supervised assistive device/personal items within reach clutter free environment maintained fall prevention program maintained lighting adjusted nonskid shoes/slippers when out of bed room organization consistent safety round/check completed Taken 01/29/2025 0000 by Mary Wu RN Safety Promotion/Fall Prevention: activity supervised assistive device/personal items within reach clutter free environment maintained fall prevention program maintained lighting adjusted nonskid shoes/slippers when out of bed room organization consistent safety round/check completed Taken 01/28/2025 220 by Mary Wu RN Safety Promotion/Fall Prevention: activity supervised assistive device/personal items within reach clutter free environment maintained fall prevention program maintained lighting adjusted nonskid shoes/slippers when out of bed room organization consistent safety round/check completed Taken 01/28/20251999 by Mary Wu RN Safety Promotion/Fall Prevention: activity supervised assistive device/personal items within reach clutter free environment maintained fall prevention program maintained lighting adjusted nonskid shoes/slippers when out of bed room organization consistent safety round/check completed Goal Outcome Evaluation: * Madiha Mccauley, MS [facility]-POST ACUTE CARE NURSE PRACTITIONER - 01/28/2025 3:51 PM EDT Goal Outcome Evaluation: Plan of Care Reviewed With: patient, spouse Progress: improving Anticipated Discharge Disposition (POST ACUTE CARE NURSE PRACTITIONER): home with OP services (if deficits persist @ time of d/c) Treatment Assessment (POST ACUTE CARE NURSE PRACTITIONER): improved, mild, cognitive-linguistic disorder (01/28/25 1500) Treatment Assessment Comments (POST ACUTE CARE NURSE PRACTITIONER): Mild deficits are acute/atypical for pt per her report. (01/28/25 1500) Plan for Continued Treatment (POST ACUTE CARE NURSE PRACTITIONER): continue treatment per plan of care, goals adjusted to reflect functional improvements demonstrated (01/28/251499) Electronically signed by Madiha Mccauley, MS [facility]-POST ACUTE CARE NURSE PRACTITIONER at 01/28/2025 3:51 PM EDT * Shabana Kim, OT Student - 01/28/2025 8:12 AM EDT Goal Outcome Evaluation: Plan of Care Reviewed With: (P) patient Progress: (P) improving Outcome Evaluation: (P) Pt presents at baseline, demonstrating independence with ADLs in session and pt reporting returned to PLOF. OT to sign off, rec home when medically ready. Anticipated Discharge Disposition (OT): (P) home Cosigned by Florence Ramirez OT at 01/28/2025 10:17 AM EDT Associated attestation - Florence Ramirez OT - 01/28/2025 10:17 AM EDT EUGENIO Leon/Ciro 01/28/25 10:17AM * Raeann Arredondo RN - 01/28/2025 6:25 AM EDT Pt AOx4, on RA, NSR/tachycardic when standing. Stand by assist to bathroom. Described 8/10 back pain, refused scheduled lidocaine patch, given PRN percocet per order, pt pain improved. Problem: Adult Inpatient Plan of Care Goal: Plan of Care Review Outcome: Progressing Flowsheets Taken 01/28/2025 0625 by Raeann Arredondo RN Progress: improving Taken 01/26/2025 1335 by Dinora Huston, PT Plan of Care Reviewed With: patient Goal: Patient-Specific Goal (Individualized) Outcome: Progressing Goal: Absence of Hospital-Acquired Illness or Injury Outcome: Progressing Intervention: Identify and Manage Fall Risk Recent Flowsheet Documentation Taken 01/28/2025 0600 by Raeann Arredondo RN Safety Promotion/Fall Prevention: activity supervised assistive device/personal items within reach clutter free environment maintained fall prevention program maintained nonskid shoes/slippers when out of bed room organization consistent safety round/check completed Taken 01/28/2025 0400 by Raaenn Arredondo RN Safety Promotion/Fall Prevention: activity supervised assistive device/personal items within reach clutter free environment maintained fall prevention program maintained nonskid shoes/slippers when out of bed room organization consistent safety round/check completed Taken 01/28/2025 0200 by Raeann Arredondo RN Safety Promotion/Fall Prevention: activity supervised assistive device/personal items within reach clutter free environment maintained fall prevention program maintained nonskid shoes/slippers when out of bed room organization consistent safety round/check completed Taken 01/27/2025 2258 by Raeann Arredondo RN Safety Promotion/Fall Prevention: activity supervised assistive device/personal items within reach clutter free environment maintained fall prevention program maintained nonskid shoes/slippers when out of bed room organization consistent safety round/check completed Intervention: Prevent Skin Injury Recent Flowsheet Documentation Taken 01/28/2025 0600 by Raeann Arredondo RN Body Position: position changed independently Skin Protection: incontinence pads utilized Taken 01/28/2025 0400 by Raeann Arredondo RN Body Position: position changed independently Skin Protection: incontinence pads utilized Taken 01/28/2025 0200 by Raeann Arredondo RN Body Position: position changed independently Skin Protection: incontinence pads utilized Taken 01/27/20252257 by Raeann Arredondo RN Body Position: position changed independently Skin Protection: incontinence pads utilized Intervention: Prevent and Manage VTE (Venous Thromboembolism) Risk Recent Flowsheet Documentation Taken 01/27/20252257 by Raeann Arredondo RN VTE Prevention/Management: bilateral SCDs (sequential compression devices) on Intervention: Prevent Infection Recent Flowsheet Documentation Taken 01/28/2025 0600 by Raeann Arredondo RN Infection Prevention: rest/sleep promoted environmental surveillance performed Taken 01/28/2025 0400 by Raeann Arredondo RN Infection Prevention: rest/sleep promoted environmental surveillance performed Taken 01/28/2025 0200 by Raeann Arredondo RN Infection Prevention: rest/sleep promoted environmental surveillance performed Taken 01/27/20252257 by Raeann Arredondo RN Infection Prevention: rest/sleep promoted environmental surveillance performed Goal: Optimal Comfort and Wellbeing Outcome: Progressing Intervention: Monitor Pain and Promote Comfort Recent Flowsheet Documentation Taken 01/28/2025 0500 by Raeann Arredondo RN Pain Management Interventions: pain medication given Taken 01/28/2025 040 by Raeann Arredondo RN Pain Management Interventions: pain management plan reviewed with patient/caregiver Intervention: Provide Person-Centered Care Recent Flowsheet Documentation Taken 01/28/2025 0000 by Raeann Arredondo RN Trust Relationship/Rapport: care explained Taken 01/27/20252257 by Raeann Arredondo RN Trust Relationship/Rapport: care explained questions answered thoughts/feelings acknowledged Goal: Readiness for Transition of Care Outcome: Progressing Problem: Skin Injury Risk Increased Goal: Skin Health and Integrity Outcome: Progressing Intervention: Optimize Skin Protection Recent Flowsheet Documentation Taken 01/28/2025 0600 by Raeann Arredondo RN Activity Management: activity minimized Pressure Reduction Techniques: frequent weight shift encouraged pressure points protected Head of Bed (HOB) Positioning: HOB elevated Pressure Reduction Devices: positioning supports utilized Skin Protection: incontinence pads utilized Taken 01/28/2025 0400 by Raeann Arredondo RN Activity Management: activity minimized Pressure Reduction Techniques: frequent weight shift encouraged pressure points protected Head of Bed (HOB) Positioning: HOB elevated Pressure Reduction Devices: positioning supports utilized Skin Protection: incontinence pads utilized Taken 01/28/2025 0200 by Raeann Arredondo RN Activity Management: activity minimized Pressure Reduction Techniques: frequent weight shift encouraged Head of Bed (HOB) Positioning: HOB elevated Pressure Reduction Devices: positioning supports utilized Skin Protection: incontinence pads utilized Taken 01/27/20252257 by Raeann Arredondo RN Activity Management: activity minimized Pressure Reduction Techniques: frequent weight shift encouraged Head of Bed (HOB) Positioning: HOB elevated Pressure Reduction Devices: positioning supports utilized Skin Protection: incontinence pads utilized Problem: Restraint, Nonviolent Goal: Absence of Harm or Injury Outcome: Progressing Intervention: Implement Least Restrictive Safety Strategies Recent Flowsheet Documentation Taken 01/27/20252257 by Raeann Arredondo RN Stenocaptioner Protection: IV pole/bag removed from visual field Diversional Activities: television Intervention: Protect Dignity, Rights and Personal Wellbeing Recent Flowsheet Documentation Taken 01/28/2025 0000 by Raeann Arredondo RN Trust Relationship/Rapport: care explained Taken 01/27/20252257 by Raeann Arredondo RN Trust Relationship/Rapport: care explained questions answered thoughts/feelings acknowledged Intervention: Protect Skin and Joint Integrity Recent Flowsheet Documentation Taken 01/28/2025 0600 by Raeann Arredondo RN Body Position: position changed independently Skin Protection: incontinence pads utilized Taken 01/28/2025 040 by Raeann Arredondo RN Body Position: position changed independently Skin Protection: incontinence pads utilized Taken 01/28/2025 020 by Raeann Arredondo RN Body Position: position changed independently Skin Protection: incontinence pads utilized Taken 01/27/20252257 by Raeann Arredondo RN Body Position: position changed independently Skin Protection: incontinence pads utilized Problem: Violence Risk or Actual Goal: Anger and Impulse Control Outcome: Progressing Intervention: Minimize Safety Risk Recent Flowsheet Documentation Taken 01/28/2025 0600 by Raeann Arredondo RN Enhanced Safety Measures: bed alarm set Taken 01/28/2025 0400 by Raeann Arredondo RN Enhanced Safety Measures: bed alarm set Taken 01/28/2025 0200 by Raeann Arredondo RN Enhanced Safety Measures: bed alarm set Taken 01/27/20252257 by Raeann Arredondo RN Enhanced Safety Measures: bed alarm set Problem: Fall Injury Risk Goal: Absence of Fall and Fall-Related Injury Outcome: Progressing Intervention: Identify and Manage Contributors Recent Flowsheet Documentation Taken 01/28/2025 0600 by Raeann Arredondo RN Medication Review/Management: medications reviewed Taken 01/28/2025 0400 by Raeann Arredondo RN Medication Review/Management: medications reviewed Taken 01/28/2025 0200 by Raeann Arredondo RN Medication Review/Management: medications reviewed Taken 01/27/2025 2258 by Raeann Arredondo RN Medication Review/Management: medications reviewed Intervention: Promote Injury-Free Environment Recent Flowsheet Documentation Taken 01/28/2025 0600 by Raeann Arredondo RN Safety Promotion/Fall Prevention: activity supervised assistive device/personal items within reach clutter free environment maintained fall prevention program maintained nonskid shoes/slippers when out of bed room organization consistent safety round/check completed Taken 01/28/2025 0400 by Raeann Arredondo RN Safety Promotion/Fall Prevention: activity supervised assistive device/personal items within reach clutter free environment maintained fall prevention program maintained nonskid shoes/slippers when out of bed room organization consistent safety round/check completed Taken 01/28/2025 0200 by Raeann Arredondo RN Safety Promotion/Fall Prevention: activity supervised assistive device/personal items within reach clutter free environment maintained fall prevention program maintained nonskid shoes/slippers when out of bed room organization consistent safety round/check completed Taken 01/27/2025 2258 by Raeann Arredondo RN Safety Promotion/Fall Prevention: activity supervised assistive device/personal items within reach clutter free environment maintained fall prevention program maintained nonskid shoes/slippers when out of bed room organization consistent safety round/check completed Goal Outcome Evaluation: Progress: improving * Nic Martin MS [facility]-POST ACUTE CARE NURSE PRACTITIONER - 01/26/2025 1:04 PM EDT Goal Outcome Evaluation: Plan of Care Reviewed With: patient Progress: improving Anticipated Discharge Disposition (POST ACUTE CARE NURSE PRACTITIONER): inpatient rehabilitation facility, other (see comments) (no further dysphagia intervention indicated, POST ACUTE CARE NURSE PRACTITIONER will f/u w cog) POST ACUTE CARE NURSE PRACTITIONER Diagnosis: moderate-severe, cognitive-linguistic disorder (01/26/25 1030) POST ACUTE CARE NURSE PRACTITIONER Diagnosis Comments: deficits are low level and are more c/w cognitive- linguistic deficits than language. (01/26/25 103) POST ACUTE CARE NURSE PRACTITIONER Swallowing Diagnosis: swallow WFL/no suspected pharyngeal impairment (01/26/25 103) * Shelly Saleem, OT - 01/26/2025 11:44 AM EDT Goal Outcome Evaluation: Plan of Care Reviewed With: patient Outcome Evaluation: OT evaluation completed. The pt presents with decreased safety awareness, generalized weakness, decreased activity tolerance, and balance deficits warranting continued IP OT services. The pt ambulated <household distance using a RWx with Martin x2. Frequent cues provided for safety awareness. Recommend d/c to SNF, but will monitor pt progress closely. Anticipated Discharge Disposition (OT): assisted facility * Dinora Huston, PT - 01/26/2025 11:44 AM EDT Goal Outcome Evaluation: Plan of Care Reviewed With: patient Progress: no change Outcome Evaluation: PT initial evaluation completed. Pt presenting w/ impaired safety awareness, balance deficits, generalized weakness, decreased activity tolerance and increased falls risk comparedto reported baseline warranting skilled IPPT interventions. Unable to ambulate greater than 12ft w/FWW prior to required rest; frequent cues for improved safety awareness and AD management. PT recommending SNF upon d/c to promote best functional outcome, however, will closely monitor pt's progress. Anticipated Discharge Disposition (PT): assisted facility * West Epps RN - 01/26/2025 10:17 AM EDT WOC consulted for ostomy Patient has an established and ileostomy at her right lower quadrant. Her appliance is intact at this time. WOC will follow-up as needed. Please change appliance every 3 to 4 days or sooner with leakage. If additional supplies are needed please consult WOC. West Epps RN, BSN, CWOCN Wound, Ostomy and Continence (WOC) Department [facility] documented in this encounter Miscellaneous Notes * Case Management/Social Work - Merari Skaggs MSW - 01/29/2025 1:42 PM EDT Case Management Discharge Note Final Note: CHIEF CUSTOMER OFFICER spoke with pt at bedside. Speech therapy did work with pt yesterday and said may benefit from outpatient therapy. Pt reports she does not feel she needs speech therapy at this time. Pt plans to discharge home with her and denies any DME or other needs at this time. Pt's to provide transportation home. Selected Continued Care - Admitted Since 01/26/2025 Destination No services have been selected for the patient. Durable Medical Equipment No services have been selected for the patient. Dialysis/Infusion No services have been selected for the patient. Home Medical Care No services have been selected for the patient. Therapy No services have been selected for the patient. Community & DME No services have been selected for the patient. Community Resources No active community resources. Final Discharge Disposition Code: 01 - home or self-care * Therapy Treatment Note - Madiha Mccauley MS CCC-POST ACUTE CARE NURSE PRACTITIONER - 01/28/2025 3:52 PM EDT Images from the original note were not included. Acute Care - Speech Language Pathology Treatment Note [facility] Patient Name: Farrah Atkinson : 1950 Today's Date: 01/28/2025 Admit Date: 01/26/2025 Visit Dx: ICD-10-CM ICD-9-CM 1. Cognitive communication deficit R41.841 799.52 2. 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 Cholelithiasis Clostridium difficile infection 05/2017 hospitalized for 1 week Colon polyp 1989 First colonoscopy at age 36 resulted in removal iof 13 precancer[address]ps[address] 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 Depression Headache 1989. Migraines became chronic and very diffucult to manage. Multiple treatment regimens were attempted. Some were helpful. Migraines ceased at menopause with few occasions thereafter. Heart murmur Hepatitis C history- currently tests negative by GI dr Hyperlipidemia Hypertension 2014 Drug treatment has been successful with a few recent episodic spijes in past 2-3 years. Hyponatremia, mild 07/19/2018 IBS (irritable bowel syndrome) Osteopenia 2001 Chronic, progressive cartilage breakdown. First total joint (L shoulder 2001). Since then have had all major joints replaced except L knee and R hip. R total hip scheduled 04/14/22. L knee to follow. Wears reading eyeglasses Past Surgical History: Procedure Laterality Date BUNIONECTOMY Bilateral x2 SECTION COLONOSCOPY 2014 ENDOSCOPY JOINT REPLACEMENT Previously covered. LAPAROSCOPIC TUBAL LIGATION TOTAL HIP ARTHROPLASTY Left TOTAL SHOULDER ARTHROPLASTY Left TOTAL SHOULDER ARTHROPLASTY Right 07/18/2018 Procedure: TOTAL SHOULDER ARTHROPLASTY RIGHT; Surgeon: Bautista Luis MD; Location: [facility]; Service: Orthopedics TUBAL ABDOMINAL LIGATION 1989 POST ACUTE CARE NURSE PRACTITIONER Recommendation and Plan Recommended discharge disposition is based on the functional assessment performed by PT/OT/Speech therapy (as applicable) and may not reflect the medical necessity determined by your provider or services covered by an individual patient's insurance plan or patient resource. Anticipated Discharge Disposition (POST ACUTE CARE NURSE PRACTITIONER): home with OP services (if deficits persist @ time of d/c) (01/28/25 1500) Therapy Frequency (POST ACUTE CARE NURSE PRACTITIONER SLC): 5 days per week (01/28/25 1500) Predicted Duration Therapy Intervention (Days): 2 weeks (01/28/25 1500) Daily Summary of Progress (POST ACUTE CARE NURSE PRACTITIONER): progress toward functional goals as expected (01/28/25 1500) Treatment Assessment (POST ACUTE CARE NURSE PRACTITIONER): improved, mild, cognitive-linguistic disorder (01/28/25 1500) Treatment Assessment Comments (POST ACUTE CARE NURSE PRACTITIONER): Mild deficits are acute/atypical for pt per her report. (01/28/25 1500) Plan for Continued Treatment (POST ACUTE CARE NURSE PRACTITIONER): continue treatment per plan of care, goals adjusted to reflect functional improvements demonstrated (01/28/25 1500) Progress: improving (01/28/25 1551) POST ACUTE CARE NURSE PRACTITIONER EVALUATION (Last 72 Hours) POST ACUTE CARE NURSE PRACTITIONER SLC Evaluation Row Name 01/28/25 1500 01/26/25 1030 Communication Assessment/Intervention Document Type therapy note (daily note) -AC -- Subjective Information no complaints -AC -- Patient Observations alert;cooperative -AC -- Patient/Family/Caregiver Comments/Observations No family present. -AC -- Patient Effort excellent -AC -- General Information Patient Profile Reviewed yes -AC -- Pain Pretreatment Pain Rating 0/10 - no pain -AC -- Posttreatment Pain Rating 0/10 - no pain -AC -- Comprehension Assessment/Intervention Comprehension Assessment/Intervention Reading Comprehension -AC Auditory Comprehension -RS Auditory Comprehension Assessment/Intervention Auditory Comprehension (Communication) WFL -AC -- Answers Questions (Communication) WFL;complex;yes/no -AC simple;moderate impairment;severe impairment -RS Able to Follow Commands (Communication) WFL;2-step -AC -- Narrative Discourse WFL;conversational level -AC -- Reading Comprehension Assessment/Intervention Reading Comprehension (Communication) WFL -AC -- Phrase Level WFL -AC -- Expression Assessment/Intervention Expression Assessment/Intervention graphic expression -AC verbal expression -RS Verbal Expression Assessment/Intervention Verbal Expression WFL -AC -- Automatic Speech (Communication) -- alphabet;counting 1-20;unable/difficult to assess -RS Repetition -- unable/difficult to assess -RS Responsive Naming WFL;simple -AC -- Confrontational Naming WFL;high frequency -AC -- Conversational Discourse/Fluency WFL -AC -- Graphic Expression Assessment/Intervention Graphic Expression WFL;dominant hand -AC -- Sentence Formulation WFL;complex -AC -- Oral Motor Structure and Function Oral Motor Structure and Function -- WFL -RS Dentition Assessment -- natural, present and adequate -RS Mucosal Quality -- dry -RS Motor Speech Assessment/Intervention Motor Speech Function -- WFL -RS Cognitive Assessment Intervention- POST ACUTE CARE NURSE PRACTITIONER Cognitive Function (Cognition) mild impairment -AC severe impairment -RS Orientation Status (Cognition) WFL;person;place;time;situation -AC person;moderate impairment;severe impairment -RS Memory (Cognitive) mild impairment;short-term;immediate;unrelated Avg 3.5 words out of 5 -AC -- Attention (Cognitive) WFL;sustained -AC -- Thought Organization (Cognitive) mild impairment;mental manipulation -AC -- Reasoning (Cognitive) WFL;deductive;mental flexibility -AC -- Problem Solving (Cognitive) WFL;temporal -AC -- Functional Math (Cognitive) WFL;money calculation -AC -- Executive Function (Cognition) mild impairment;deficit awareness -AC -- Pragmatics (Communication) WFL -AC -- Cognition, Comment -- oriented to year only -RS POST ACUTE CARE NURSE PRACTITIONER Evaluation Clinical Impressions POST ACUTE CARE NURSE PRACTITIONER Diagnosis -- moderate-severe;cognitive-linguistic disorder -RS POST ACUTE CARE NURSE PRACTITIONER Diagnosis Comments -- deficits are low level and are more c/w cognitive- linguistic deficits than language. -RS Rehab Potential/Prognosis -- good -RS SLC Criteria for Skilled Therapy Interventions Met -- yes -RS POST ACUTE CARE NURSE PRACTITIONER Treatment Clinical Impressions Treatment Assessment (POST ACUTE CARE NURSE PRACTITIONER) improved;mild;cognitive-linguistic disorder -AC -- Treatment Assessment Comments (POST ACUTE CARE NURSE PRACTITIONER) Mild deficits are acute/atypical for pt per her report. -AC -- Daily Summary of Progress (POST ACUTE CARE NURSE PRACTITIONER) progress toward functional goals as expected -AC -- Plan for Continued Treatment (POST ACUTE CARE NURSE PRACTITIONER) continue treatment per plan of care;goals adjusted to reflect functional improvements demonstrated -AC -- Care Plan Review evaluation/treatment results reviewed;care plan/treatment goals reviewed;risks/benefits reviewed;current/potential barriers reviewed;patient/other agree to care plan -AC -- Care Plan Review, Other Participant(s) spouse -AC -- Recommendations Therapy Frequency (POST ACUTE CARE NURSE PRACTITIONER SLC) 5 days per week -AC 5 days per week -RS Predicted Duration Therapy Intervention (Days) 2 weeks -AC 2 weeks -RS Anticipated Discharge Disposition (POST ACUTE CARE NURSE PRACTITIONER) home with OP services if deficits persist @ time of d/c -ACinpatient rehabilitation facility;other (see comments) no further dysphagia intervention indicated,POST ACUTE CARE NURSE PRACTITIONER will f/u w cog -RS User Thompson (r) = Recorded By, (t) = Taken By, (c) = Cosigned By Initials Name Effective Dates AC Madiha Mccauley MS CCC-POST ACUTE CARE NURSE PRACTITIONER 05/05/22 - RS Nic Martin MS CCC-POST ACUTE CARE NURSE PRACTITIONER 12/14/22 - EDUCATION The patient has been educated in the following areas: Cognitive Impairment. POST ACUTE CARE NURSE PRACTITIONER GOALS Row Name 01/28/25 1500 01/26/25 1030 Patient will demonstrate functional cognitive-linguistic skills for return to discharge environment [place] Independently -AC with moderate cues -RS Time frame 2 weeks -AC 2 weeks -RS Progress/Outcomes goal revised this date -AC new goal -RS POST ACUTE CARE NURSE PRACTITIONER Diagnostic Treatment Patient will participate in further assessment in the following areas reading comprehension;graphicexpression -AC reading comprehension;graphic expression -RS Time Frame (Diagnostic) 1 week -AC 1 week -RS Progress/Outcomes (Additional Goal 1, POST ACUTE CARE NURSE PRACTITIONER) goal met -AC new goal -RS Comment (Diagnostic) See assessment. -AC -- Comprehend Questions Goal 1 (POST ACUTE CARE NURSE PRACTITIONER) Improve Ability to Comprehend Questions Goal 1 (POST ACUTE CARE NURSE PRACTITIONER) simple yes/no questions;80%;with moderate cues(50-74%) -AC simple yes/no questions;80%;with moderate cues (50-74%) -RS Time Frame (Comprehend Questions Goal 1, POST ACUTE CARE NURSE PRACTITIONER) 1 week -AC 1 week -RS Progress (Ability to Comprehend Questions Goal 1, POST ACUTE CARE NURSE PRACTITIONER) 100%;independently (over 90% accuracy) -AC -- Progress/Outcomes (Comprehend Questions Goal 1, POST ACUTE CARE NURSE PRACTITIONER) goal met -AC new goal -RS Follow Directions Goal 2 (POST ACUTE CARE NURSE PRACTITIONER) Improve Ability to Follow Directions Goal 1 (POST ACUTE CARE NURSE PRACTITIONER) 1 step direction without objects;80%;with moderate cues (50-74%) -AC 1 step direction without objects;80%;with moderate cues (50-74%) -RS Time Frame (Follow Directions Goal 1, POST ACUTE CARE NURSE PRACTITIONER) 1 week -AC 1 week -RS Progress (Ability to Follow Directions Goal 1, POST ACUTE CARE NURSE PRACTITIONER) 100%;independently (over 90% accuracy) -AC -- Progress/Outcomes (Follow Directions Goal 1, POST ACUTE CARE NURSE PRACTITIONER) goal met -AC new goal -RS Orientation Goal 1 (POST ACUTE CARE NURSE PRACTITIONER) Improve Orientation Through Goal 1 (POST ACUTE CARE NURSE PRACTITIONER) demonstrating orientation to day;demonstrating orientationto month;demonstrating orientation to year;80%;with moderate cues (50-74%) -AC demonstrating orientation to day;demonstrating orientation to month;demonstrating orientation to year;80%;with moderate cues (50-74%) -RS Time Frame (Orientation Goal 1, POST ACUTE CARE NURSE PRACTITIONER) 1 week -AC 1 week -RS Progress (Orientation Goal 1, POST ACUTE CARE NURSE PRACTITIONER) 100%;independently (over 90% accuracy) -AC -- Progress/Outcomes (Orientation Goal 1, POST ACUTE CARE NURSE PRACTITIONER) goal met -AC new goal -RS Memory Skills Goal 1 (POST ACUTE CARE NURSE PRACTITIONER) Improve Memory Skills Through Goal 1 (POST ACUTE CARE NURSE PRACTITIONER) recalling related word lists immediately;listen to a paragraph and answer questions;use memory strategies;90%;independently (over 90% accuracy) -AC -- Time Frame (Memory Skills Goal 1, POST ACUTE CARE NURSE PRACTITIONER) 1 week -AC -- Progress/Outcomes (Memory Skills Goal 1, POST ACUTE CARE NURSE PRACTITIONER) new goal -AC -- Organizational Skills Goal 1 (POST ACUTE CARE NURSE PRACTITIONER) Improve Thought Organization Through Goal 1 (POST ACUTE CARE NURSE PRACTITIONER) completing mental manipulation task;90%;with minimal cues (75-90%) -AC -- Time Frame (Thought Organization Skills Goal 1, POST ACUTE CARE NURSE PRACTITIONER) 1 week -AC -- Progress/Outcomes (Thought Organization Skills Goal 1, POST ACUTE CARE NURSE PRACTITIONER) new goal -AC -- Executive Functional Skills Goal 1 (POST ACUTE CARE NURSE PRACTITIONER) Improve Executive Function Skills Goal 1 (POST ACUTE CARE NURSE PRACTITIONER) identify anticipated needs;organization/planning activity;80%;with minimal cues (75-90%) -AC -- Time Frame (Executive Function Skills Goal 1, POST ACUTE CARE NURSE PRACTITIONER) 1 week -AC -- Progress/Outcomes (Executive Function Skills Goal 1, POST ACUTE CARE NURSE PRACTITIONER) new goal -AC -- User Thompson (r) = Recorded By, (t) = Taken By, (c) = Cosigned By Initials Name Provider Type AC Madiha Mccauley MS CCC-POST ACUTE CARE NURSE PRACTITIONER Speech and Language Pathologist Nic Conti MS CCC-POST ACUTE CARE NURSE PRACTITIONER Speech and Language Pathologist Time Calculation: Time Calculation- POST ACUTE CARE NURSE PRACTITIONER Row Name 01/28/25 1551 Time Calculation- POST ACUTE CARE NURSE PRACTITIONER POST ACUTE CARE NURSE PRACTITIONER Start Time 1500 -AC POST ACUTE CARE NURSE PRACTITIONER Received On 01/28/25 - Untimed Charges 14429-SA Treatment/ST Modification Prosth Oct 54 -AC Total Minutes Untimed Charges Total Minutes 54 -AC Total Minutes 54 -AC User Thompson (r) = Recorded By, (t) = Taken By, (c) = Cosigned By Initials Name Provider Type AC Madiha Mccauley MS CCC-POST ACUTE CARE NURSE PRACTITIONER Speech and Language Pathologist Therapy Charges for Today Code Description Service Date Service Provider Modifiers Qty [id number] ST TREATMENT SPEECH 4 01/28/2025 Madiha Mccauley MS CCC-POST ACUTE CARE NURSE PRACTITIONER GN 1 Madiha Mccauley MS CCC-DOYLE 01/28/2025 * Case Management/Social Work - Merari Skaggs MSW - 01/28/2025 11:15 AM EDT Continued Stay Note Juanita Patient Name: Farrah Atkinson Today's Date: 01/28/2025 Admit Date: 01/26/2025 Plan: Home Discharge Plan Row Name 01/28/25 1114 Plan Plan Comments CM had spoken with pt's yesterday, who declined SNF and reports pt will discharge home with him and he can provide transportation. Pt's also reports she has not been homebound and does not think she will require home health at this time. Pt worked with OT this morning and no longer recommending SNF and jsut rec home. CHIEF CUSTOMER OFFICER remains available for any discharge needs thatarise. Discharge Codes No documentation. JEAN Shane * Therapy Evaluation - Nic Martin, MS CCC-POST ACUTE CARE NURSE PRACTITIONER - 01/26/2025 1:04 PM EDT Images from the original note were not included. Acute Care - Speech Language Pathology Swallow Initial Evaluation Juanita Clinical Swallow Evaluation + Cognitive-Communication Evaluation Patient Name: Farrah Atkinson : 1950 Today's Date: 01/26/2025 Admit Date: 01/26/2025 Visit Dx: ICD-10-CM ICD-9-CM 1. 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 Cholelithiasis Clostridium difficile infection 05/2017 hospitalized for 1 week Colon polyp 1989 First colonoscopy at age 36 resulted in removal iof 13 [address]ancer[address]ps[address] 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 Depression Headache 1989. Migraines became chronic and very diffucult to manage. Multiple treatment regimens were attempted. Some were helpful. Migraines ceased at menopause with few occasions thereafter. Heart murmur Hepatitis C history- currently tests negative by GI dr Hyperlipidemia Hypertension 2014 Drug treatment has been successful with a few recent episodic spijes in past 2-3 years. Hyponatremia, mild 07/19/2018 IBS (irritable bowel syndrome) Osteopenia 2001 Chronic, progressive cartilage breakdown. First total joint (L shoulder 2001). Since then have had all major joints replaced except L knee and R hip. R total hip scheduled 04/14/22. L knee to follow. Wears reading eyeglasses Past Surgical History: Procedure Laterality Date BUNIONECTOMY Bilateral x2 SECTION COLONOSCOPY 2014 ENDOSCOPY JOINT REPLACEMENT Previously covered. LAPAROSCOPIC TUBAL LIGATION TOTAL HIP ARTHROPLASTY Left TOTAL SHOULDER ARTHROPLASTY Left TOTAL SHOULDER ARTHROPLASTY Right 07/18/2018 Procedure: TOTAL SHOULDER ARTHROPLASTY RIGHT; Surgeon: Bautista Luis MD; Location: [facility]; Service: Orthopedics TUBAL ABDOMINAL LIGATION 1989 POST ACUTE CARE NURSE PRACTITIONER Recommendation and Plan Recommended discharge disposition is based on the functional assessment performed by PT/OT/Speech therapy (as applicable) and may not reflect the medical necessity determined by your provider or services covered by an individual patient's insurance plan or patient resource. POST ACUTE CARE NURSE PRACTITIONER Swallowing Diagnosis: swallow WFL/no suspected pharyngeal impairment (01/26/25 103) POST ACUTE CARE NURSE PRACTITIONER Diet Recommendation: regular textures, thin liquids (01/26/25 1030) POST ACUTE CARE NURSE PRACTITIONER Rec. for Method of Medication Administration: as tolerated (01/26/25 1030) Swallow Criteria for Skilled Therapeutic Interventions Met: no problems identified which require skilled intervention (01/26/25 103) Anticipated Discharge Disposition (POST ACUTE CARE NURSE PRACTITIONER): inpatient rehabilitation facility, other (see comments) (no further dysphagia intervention indicated, POST ACUTE CARE NURSE PRACTITIONER will f/u w cog) (01/26/25 1030) Predicted Duration Therapy Intervention (Days): 2 weeks (01/26/25 1030) Oral Care Recommendations: Oral Care BID/PRN, Toothbrush (01/26/25 1030) Progress: improving SWALLOW EVALUATION (Last 72 Hours) POST ACUTE CARE NURSE PRACTITIONER Adult Swallow Evaluation Row Name 01/26/25 1030 Rehab Evaluation Document Type evaluation -RS Subjective Information no complaints -RS Patient Observations alert -RS Patient/Family/Caregiver Comments/Observations None present -RS Patient Effort fair -RS Symptoms Noted During/After Treatment none -RS Oral Care patient refused intervention -RS General Information Patient Profile Reviewed yes -RS Pertinent History Of Current Problem Pt is a 74 yoM w PMHx CKD, HTN, depression, chronic pain, ischemic colitis s/p colectomy and end ileostomy, PaFib, prior Cdiff and recurrent UTIs. She was transferred from [facility] 2/2 concerns for SAH after she snorted medications and was found down. -RS Current Method of Nutrition NPO -RS Precautions/Limitations, Vision difficult to assess -RS Precautions/Limitations, Hearing WFL;for purposes of eval -RS Prior Level of Function-Communication unknown -RS Prior Level of Function-Swallowing other (see comments) FEES 08/2022 at [facility] 2/2 cord dysfunction. Soft/ntl/no mixed/single drinks recommended -RS Plans/Goals Discussed with patient;agreed upon -RS Barriers to Rehab none identified -RS Pain Additional Documentation Pain Scale: FACES Pre/Post-Treatment (Group) -RS Pain Scale: FACES Pre/Post-Treatment Pain: FACES Scale, Pretreatment 0-->no hurt -RS Posttreatment Pain Rating 0-->no hurt -RS Oral Motor Structure and Function Secretion Management WNL/WFL -RS Oral Musculature and Cranial Nerve Assessment Oral Motor General Assessment WFL -RS General Eating/Swallowing Observations Respiratory Support Currently in Use room air -RS Eating/Swallowing Skills fed by POST ACUTE CARE NURSE PRACTITIONER;other (see comments) pt in bilateral wrist restraints -RS Positioning During Eating upright in bed -RS Utensils Used spoon;cup;straw -RS Consistencies Trialed regular textures;mixed consistency;ice chips;thin liquids;pureed -RS Respiratory Respiratory Status WFL -RS Clinical Swallow Eval Oral Prep Phase WFL -RS Oral Transit WFL -RS Oral Residue WFL -RS Pharyngeal Phase no overt signs/symptoms of pharyngeal impairment -RS Esophageal Phase unremarkable -RS POST ACUTE CARE NURSE PRACTITIONER Evaluation Clinical Impression POST ACUTE CARE NURSE PRACTITIONER Swallowing Diagnosis swallow WFL/no suspected pharyngeal impairment -RS Swallow Criteria for Skilled Therapeutic Interventions Met no problems identified which require skilled intervention -RS Recommendations POST ACUTE CARE NURSE PRACTITIONER Diet Recommendation regular textures;thin liquids -RS Oral Care Recommendations Oral Care BID/PRN;Toothbrush -RS POST ACUTE CARE NURSE PRACTITIONER Rec. for Method of Medication Administration as tolerated -RS User Thompson (r) = Recorded By, (t) = Taken By, (c) = Cosigned By Initials Name Effective Dates Nic Conti MS [facility]-POST ACUTE CARE NURSE PRACTITIONER 12/14/22 - EDUCATION The patient has been educated in the following areas: Dysphagia (Swallowing Impairment). POST ACUTE CARE NURSE PRACTITIONER GOALS Row Name 01/26/25 1030 Patient will demonstrate functional cognitive-linguistic skills for return to discharge environment [place] with moderate cues -RS Time frame 2 weeks -RS Progress/Outcomes new goal -RS POST ACUTE CARE NURSE PRACTITIONER Diagnostic Treatment Patient will participate in further assessment in the following areas reading comprehension;graphicexpression -RS Time Frame (Diagnostic) 1 week -RS Progress/Outcomes (Additional Goal 1, POST ACUTE CARE NURSE PRACTITIONER) new goal -RS Comprehend Questions Goal 1 (POST ACUTE CARE NURSE PRACTITIONER) Improve Ability to Comprehend Questions Goal 1 (POST ACUTE CARE NURSE PRACTITIONER) simple yes/no questions;80%;with moderate cues(50-74%) -RS Time Frame (Comprehend Questions Goal 1, POST ACUTE CARE NURSE PRACTITIONER) 1 week -RS Progress/Outcomes (Comprehend Questions Goal 1, POST ACUTE CARE NURSE PRACTITIONER) new goal -RS Follow Directions Goal 2 (POST ACUTE CARE NURSE PRACTITIONER) Improve Ability to Follow Directions Goal 1 (POST ACUTE CARE NURSE PRACTITIONER) 1 step direction without objects;80%;with moderate cues (50-74%) -RS Time Frame (Follow Directions Goal 1, POST ACUTE CARE NURSE PRACTITIONER) 1 week -RS Progress/Outcomes (Follow Directions Goal 1, POST ACUTE CARE NURSE PRACTITIONER) new goal -RS Orientation Goal 1 (POST ACUTE CARE NURSE PRACTITIONER) Improve Orientation Through Goal 1 (POST ACUTE CARE NURSE PRACTITIONER) demonstrating orientation to day;demonstrating orientationto month;demonstrating orientation to year;80%;with moderate cues (50-74%) -RS Time Frame (Orientation Goal 1, POST ACUTE CARE NURSE PRACTITIONER) 1 week -RS Progress/Outcomes (Orientation Goal 1, POST ACUTE CARE NURSE PRACTITIONER) new goal -RS User Thompson (r) = Recorded By, (t) = Taken By, (c) = Cosigned By Initials Name Provider Type Nic Conti MS [facility]-POST ACUTE CARE NURSE PRACTITIONER Speech and Language Pathologist Time Calculation: Time Calculation- POST ACUTE CARE NURSE PRACTITIONER Row Name 01/26/25 1305 Time Calculation- POST ACUTE CARE NURSE PRACTITIONER POST ACUTE CARE NURSE PRACTITIONER Start Time 1030 -RS POST ACUTE CARE NURSE PRACTITIONER Received On 01/26/25 -RS Untimed Charges 88729-VY Eval Speech and Production w/ Language Minutes 25 -RS [id number]-WR Eval Oral Pharyng Swallow Minutes 40 -RS Total Minutes Untimed Charges Total Minutes 65 -RS Total Minutes 65 -RS User Thompson (r) = Recorded By, (t) = Taken By, (c) = Cosigned By Initials Name Provider Type RS Nic MartinMS CCC-POST ACUTE CARE NURSE PRACTITIONER Speech and Language Pathologist Therapy Charges for Today Code Description Service Date Service Provider Modifiers Qty 80070271075 HC ST EVAL ORAL PHARYNG SWALLOW 3 01/26/2025 Nic MartinMS CCC-POST ACUTE CARE NURSE PRACTITIONER GN [id number] EVAL SPEECH AND PROD W LANG 2 01/26/2025 Mario MS RENUKA Lucero- POST ACUTE CARE NURSE PRACTITIONER GN 1 Nic Martin MS CCC-POST ACUTE CARE NURSE PRACTITIONER 01/26/2025 and [facility] - Speech Language Pathology Initial Evaluation [facility] Cognitive-Communication Evaluation Patient Name: Farrah Atkinson : 1950 Today's Date: 01/26/2025 Admit Date: 01/26/2025 Visit Dx: ICD-10-CM ICD-9-CM 1. 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 Cholelithiasis Clostridium difficile infection 05/2017 hospitalized for 1 week Colon polyp 1989 First colonoscopy at age 36 resulted in removal iof 13 precancerous polyps[address] 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 Depression Headache 1989. Migraines became chronic and very diffucult to manage. Multiple treatment regimens were attempted. Some were helpful. Migraines ceased at menopause with few occasions thereafter. Heart murmur Hepatitis C history- currently tests negative by GI Hyperlipidemia Hypertension 2014 Drug treatment has been successful with a few recent episodic spijes in past 2-3 years. Hyponatremia, mild 07/19/2018 IBS (irritable bowel syndrome) Osteopenia 2001 Chronic, progressive cartilage breakdown. First total joint (L shoulder 2001). Since then have had all major joints replaced except L knee and R hip. R total hip scheduled 04/14/22. L knee to follow. Wears reading eyeglasses Past Surgical History: Procedure Laterality Date BUNIONECTOMY Bilateral x2 SECTION COLONOSCOPY 2014 ENDOSCOPY JOINT REPLACEMENT Previously covered. LAPAROSCOPIC TUBAL LIGATION TOTAL HIP ARTHROPLASTY Left TOTAL SHOULDER ARTHROPLASTY Left TOTAL SHOULDER ARTHROPLASTY Right 07/18/2018 Procedure: TOTAL SHOULDER ARTHROPLASTY RIGHT; Surgeon: Bautista Luis MD; Location: [facility]; Service: Orthopedics TUBAL ABDOMINAL LIGATION 1989 POST ACUTE CARE NURSE PRACTITIONER Recommendation and Plan Recommended discharge disposition is based on the functional assessment performed by PT/OT/Speech therapy (as applicable) and may not reflect the medical necessity determined by your provider or services covered by an individual patient's insurance plan or patient resource. POST ACUTE CARE NURSE PRACTITIONER Diagnosis: moderate-severe, cognitive-linguistic disorder (01/26/25 103) POST ACUTE CARE NURSE PRACTITIONER Diagnosis Comments: deficits are low level and are more c/w cognitive- linguistic deficits than language. (01/26/25 103) Swallow Criteria for Skilled Therapeutic Interventions Met: no problems identified which require skilled intervention (01/26/25 103) SLC Criteria for Skilled Therapy Interventions Met: yes (01/26/25 103) Anticipated Discharge Disposition (POST ACUTE CARE NURSE PRACTITIONER): inpatient rehabilitation facility, other (see comments) (no further dysphagia intervention indicated, POST ACUTE CARE NURSE PRACTITIONER will f/u w cog) (01/26/25 103) Therapy Frequency (POST ACUTE CARE NURSE PRACTITIONER SLC): 5 days per week (01/26/25 103) Predicted Duration Therapy Intervention (Days): 2 weeks (01/26/25 103) Oral Care Recommendations: Oral Care BID/PRN, Toothbrush (01/26/25 1030) Progress: improving (01/26/25 1304) POST ACUTE CARE NURSE PRACTITIONER EVALUATION (Last 72 Hours) POST ACUTE CARE NURSE PRACTITIONER SLC Evaluation Row Name 01/26/251029 Comprehension Assessment/Intervention Comprehension Assessment/Intervention Auditory Comprehension -RS Auditory Comprehension Assessment/Intervention Answers Questions (Communication) simple;moderate impairment;severe impairment -RS Expression Assessment/Intervention Expression Assessment/Intervention verbal expression -RS Verbal Expression Assessment/Intervention Automatic Speech (Communication) alphabet;counting 1-20;unable/difficult to assess -RS Repetition unable/difficult to assess -RS Oral Motor Structure and Function Oral Motor Structure and Function WFL -RS Dentition Assessment natural, present and adequate -RS Mucosal Quality dry -RS Motor Speech Assessment/Intervention Motor Speech Function WFL -RS Cognitive Assessment Intervention- POST ACUTE CARE NURSE PRACTITIONER Cognitive Function (Cognition) severe impairment -RS Orientation Status (Cognition) person;moderate impairment;severe impairment -RS Cognition, Comment oriented to year only -RS POST ACUTE CARE NURSE PRACTITIONER Evaluation Clinical Impressions POST ACUTE CARE NURSE PRACTITIONER Diagnosis moderate-severe;cognitive-linguistic disorder -RS POST ACUTE CARE NURSE PRACTITIONER Diagnosis Comments deficits are low level and are more c/w cognitive- linguistic deficits than language. -RS Rehab Potential/Prognosis good -RS SLC Criteria for Skilled Therapy Interventions Met yes -RS Recommendations Therapy Frequency (POST ACUTE CARE NURSE PRACTITIONER SLC) 5 days per week -RS Predicted Duration Therapy Intervention (Days) 2 weeks -RS Anticipated Discharge Disposition (POST ACUTE CARE NURSE PRACTITIONER) inpatient rehabilitation facility;other (see comments) no further dysphagia intervention indicated, POST ACUTE CARE NURSE PRACTITIONER will f/u w cog -RS User Thompson (r) = Recorded By, (t) = Taken By, (c) = Cosigned By Initials Name Effective Dates RS Nic Martin, [facility]-POST ACUTE CARE NURSE PRACTITIONER 12/14/22 - EDUCATION The patient has been educated in the following areas: Cognitive Impairment. POST ACUTE CARE NURSE PRACTITIONER GOALS Row Name 01/26/25 1030 Patient will demonstrate functional cognitive-linguistic skills for return to discharge environment [place] with moderate cues -RS Time frame 2 weeks -RS Progress/Outcomes new goal -RS POST ACUTE CARE NURSE PRACTITIONER Diagnostic Treatment Patient will participate in further assessment in the following areas reading comprehension;graphicexpression -RS Time Frame (Diagnostic) 1 week -RS Progress/Outcomes (Additional Goal 1, POST ACUTE CARE NURSE PRACTITIONER) new goal -RS Comprehend Questions Goal 1 (POST ACUTE CARE NURSE PRACTITIONER) Improve Ability to Comprehend Questions Goal 1 (POST ACUTE CARE NURSE PRACTITIONER) simple yes/no questions;80%;with moderate cues(50-74%) -RS Time Frame (Comprehend Questions Goal 1, POST ACUTE CARE NURSE PRACTITIONER) 1 week -RS Progress/Outcomes (Comprehend Questions Goal 1, POST ACUTE CARE NURSE PRACTITIONER) new goal -RS Follow Directions Goal 2 (POST ACUTE CARE NURSE PRACTITIONER) Improve Ability to Follow Directions Goal 1 (POST ACUTE CARE NURSE PRACTITIONER) 1 step direction without objects;80%;with moderate cues (50-74%) -RS Time Frame (Follow Directions Goal 1, POST ACUTE CARE NURSE PRACTITIONER) 1 week -RS Progress/Outcomes (Follow Directions Goal 1, POST ACUTE CARE NURSE PRACTITIONER) new goal -RS Orientation Goal 1 (POST ACUTE CARE NURSE PRACTITIONER) Improve Orientation Through Goal 1 (POST ACUTE CARE NURSE PRACTITIONER) demonstrating orientation to day;demonstrating orientationto month;demonstrating orientation to year;80%;with moderate cues (50-74%) -RS Time Frame (Orientation Goal 1, POST ACUTE CARE NURSE PRACTITIONER) 1 week -RS Progress/Outcomes (Orientation Goal 1, POST ACUTE CARE NURSE PRACTITIONER) new goal -RS User Thompson (r) = Recorded By, (t) = Taken By, (c) = Cosigned By Initials Name Provider Type Nic Conti MS CCC-POST ACUTE CARE NURSE PRACTITIONER Speech and Language Pathologist Time Calculation: Time Calculation- POST ACUTE CARE NURSE PRACTITIONER Row Name 01/26/25 1305 Time Calculation- POST ACUTE CARE NURSE PRACTITIONER POST ACUTE CARE NURSE PRACTITIONER Start Time 1030 -RS POST ACUTE CARE NURSE PRACTITIONER Received On 01/26/25 -RS Untimed Charges 22085-FJ Eval Speech and Production w/ Language Minutes 25 -RS 34470-DF Eval Oral Pharyng Swallow Minutes 40 -RS Total Minutes Untimed Charges Total Minutes 65 -RS Total Minutes 65 -RS User Thompson (r) = Recorded By, (t) = Taken By, (c) = Cosigned By Initials Name Provider Type Nic Conti MS CCC-POST ACUTE CARE NURSE PRACTITIONER Speech and Language Pathologist Therapy Charges for Today Code Description Service Date Service Provider Modifiers Qty [id number] HC ST EVAL ORAL PHARYNG SWALLOW 3 01/26/2025 Nic Martin MS CCC-SLP GN [id number] EVAL SPEECH AND PROD W LANG 2 01/26/2025 Nic Martin MS CCC- SLP GN 1 MS CLAUDE Gavin 01/26/2025 * Case Management/Social Work - Shea Bonds RN - 01/26/2025 12:36 PM EDT Discharge Planning Assessment [facility] Patient Name: Farrah Atkinson Today's Date: 01/26/2025 Admit Date: 01/26/2025 Plan: Goal is home Discharge Needs Assessment Row Name 01/26/25 1231 Living Environment People in Home spouse Name(s) of People in Home Rosalio Herman Current Living Arrangements home Potentially Unsafe Housing Conditions unable to assess In the past 12 months has the electric, gas, oil, or water [employer] threatened to shut off services in your home? No Primary Care Provided by self Provides Primary Care For no one Family Caregiver if Needed spouse Family Caregiver Names Rosalio Herman Quality of Family Relationships helpful;involved;supportive Resource/Environmental Concerns Resource/Environmental Concerns none Transportation Concerns none Transportation Needs In the past 12 months, has lack of transportation kept you from medical appointments or from getting medications? no In the past 12 months, has lack of transportation kept you from meetings, work, or from getting things needed for daily living? No Food Insecurity Within the past 12 months, you worried that your food would run out before you got the money to buymore. Never true Within the past 12 months, the food you bought just didn't last and you didn't have money to get more. Never true Transition Planning Patient/Family Anticipates Transition to home with family Patient/Family Anticipated Services at Transition case therapistdata deliverables manager Anticipated family or friend will provide Discharge Needs Assessment Equipment Currently Used at Home bp cuff Do you want help finding or keeping work or a job? Patient unable to answer Do you want help with school or training? For example, starting or completing job training or getting a high school diploma, GED or equivalent Patient unable to answer Discharge Plan Row Name 01/26/25 1232 Plan Plan Goal is home Patient/Family in Agreement with Plan yes Plan Comments Spoke with patient's spouse, Rosalio Herman, by phone to initiate discharge planning. Confirmed their residence in [facility]; PCP is Connor Gomez; primary insurance is Medicare and secondary is Zi (spouse to bring card to registration). Patient reported to have prescription drug coverage and uses [facility] in [place]. Patient reported to be independent with ADLs and mobility prior to admission; no DME or home health services utilized. Discharge goal is home. Case Management will continue to follow and assist with discharge plan. Continued Care and Services - Admitted Since 01/26/2025 No active coordination exists. Demographic Summary Row Name 01/26/25 1228 General Information Referral Source admission list Reason for Consult discharge planning Preferred Language New Zealander Contact Information Permission Granted to Share Info With case therapistlodging manager Status Row Name 01/26/25 1231 Functional Status Usual Activity Tolerance good Physical Activity On average, how many days per week do you engage in moderate to strenuous exercise (like a brisk walk)? Pt Unable On average, how many minutes do you engage in exercise at this level? Pt Unable Functional Status, IADL Medications independent Meal Preparation independent Housekeeping independent Laundry independent Shopping independent If for any reason you need help with day-to-day activities such as bathing, preparing meals, shopping, managing finances, etc., do you get the help you need? Patient unable to answer Psychosocial No documentation. Abuse/Neglect No documentation. Legal No documentation. Substance Abuse No documentation. Patient Forms No documentation. Shea Bonds RN * Therapy Evaluation - Shelyl Saleem, MALICK - 01/26/2025 11:44 AM EDT Images from the original note were not included. Patient Name: Farrah Atkinson : 1950 Today's Date: 01/26/2025 Admit Date: 01/26/2025 Visit Dx: ICD-10-CM ICD-9-CM 1. 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 Cholelithiasis Clostridium difficile infection 05/2017 hospitalized for 1 week Colon polyp 1989 First colonoscopy at age 36 resulted in removal iof 13 precancerous polyps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 Depression Headache 1989. Migraines became chronic and very diffucult to manage. Multiple treatment regimens were attempted. Some were helpful. Migraines ceased at menopause with few occasions thereafter. Heart murmur Hepatitis C history- currently tests negative by GI Hyperlipidemia Hypertension 2014 Drug treatment has been successful with a few recent episodic spijes in past 2-3 years. Hyponatremia, mild 07/19/2018 IBS (irritable bowel syndrome) Osteopenia 2001 Chronic, progressive cartilage breakdown. First total joint (L shoulder 2001). Since then have had all major joints replaced except L knee and R hip. R total hip scheduled 04/14/22. L knee to follow. Wears reading eyeglasses Past Surgical History: Procedure Laterality Date BUNIONECTOMY Bilateral x2 SECTION COLONOSCOPY 2014 ENDOSCOPY JOINT REPLACEMENT Previously covered. LAPAROSCOPIC TUBAL LIGATION TOTAL HIP ARTHROPLASTY Left TOTAL SHOULDER ARTHROPLASTY Left TOTAL SHOULDER ARTHROPLASTY Right 07/18/2018 Procedure: TOTAL SHOULDER ARTHROPLASTY RIGHT; Surgeon: Bautista Luis MD; Location: [facility]; Service: Orthopedics TUBAL ABDOMINAL LIGATION 1989 General Information Row Name 01/26/25 1315 OT Time and Intention Document Type evaluation -KF Mode of Treatment occupational therapy;co-treatment -KF Row Name 01/26/25 1315 General Information Patient Profile Reviewed yes -KF Prior Level of Function independent:;all household mobility;community mobility;bed mobility;ADL's;driving Pt is a somewhat questionable historian, reports being Nomi with rollator. History of falls. -KF Existing Precautions/Restrictions fall;other (see comments) duran -KF Barriers to Rehab medically complex;previous functional deficit -KF Row Name 01/26/25 1315 Living Environment Current Living Arrangements home -KF People in Home spouse -KF Row Name 01/26/25 1315 Home Main Entrance Number of Stairs, Main Entrance other (see comments) Pt reports she does have stairs at home, but was unsure how many. -KF Row Name 01/26/25 1315 Cognition Orientation Status (Cognition) oriented x 3 -KF Row Name 01/26/25 1315 Safety Issues/Impairments Affecting Functional Mobility Safety Issues Affecting Function (Mobility) awareness of need for assistance;insight into deficits/self-awareness;judgment;positioning of assistive device;problem-solving;safety precaution awareness;safety precautions follow-through/compliance;sequencing abilities;impulsivity -KF Impairments Affecting Function (Mobility) balance;cognition;coordination;endurance/activity toleranc e;strength;postural/trunk control;pain -KF Cognitive Impairments, Mobility Safety/Performance awareness, need for assistance;attention;insightinto deficits/self-awareness;judgment;impulsivity;problem-solving/reasoning;safety precaution awareness;safety precaution follow-through;sequencing abilities -KF User Thompson (r) = Recorded By, (t) = Taken By, (c) = Cosigned By Initials Name Provider Type KF Shelly Saleem OT Occupational Therapist Mobility/ADL's Row Name 01/26/25 131 Bed Mobility Bed Mobility supine-sit -KF Supine-Sit [place] (Bed Mobility) standby assist -KF Assistive Device (Bed Mobility) bed rails;head of bed elevated -KF Comment, (Bed Mobility) Cues for sequence and safety awareness. Pt impulsively moving toward EOB prior to line management being completed. - Row Name 01/26/251315 Transfers Transfers sit-stand transfer;stand-sit transfer - Row Name 01/26/251315 Sit-Stand Transfer Sit-Stand [place] (Transfers) minimum assist (75% patient effort);2 person assist;verbal cues -KF Assistive Device (Sit-Stand Transfers) walker, front-wheeled - Comment, (Sit-Stand Transfer) x1 from EOB -KF Row Name 01/26/251315 Stand-Sit Transfer Stand-Sit [place] (Transfers) minimum assist (75% patient effort);2 person assist;verbal cues -KF Assistive Device (Stand-Sit Transfers) walker, front-wheeled - Row Name 01/26/251315 Functional Mobility Functional Mobility- Ind. Level minimum assist (75% patient effort);2 person assist required;verbalcues required - Functional Mobility- Device walker, front-wheeled -KF Functional Mobility-Distance (Feet) -- <household distance - Functional Mobility- Comment Cues to keep RWx close to base of support and increase stride length. Martin x2 provided throughout for safety. Additional mobility limited by pt fatigue. - Patient was able to Ambulate yes - Row Name 01/26/251315 Activities of Daily Living BADL Assessment/Intervention upper body dressing;lower body dressing;feeding - Row Name 01/26/251315 Upper Body Dressing Assessment/Training [place] Level (Upper Body Dressing) don;doff;front opening garment;moderate assist (50% patient effort) -KF Position (Upper Body Dressing) edge of bed sitting;unsupported sitting - Row Name 01/26/251315 Lower Body Dressing Assessment/Training [place] Level (Lower Body Dressing) don;socks;dependent (less than 25% patient effort) -KF Position (Lower Body Dressing) edge of bed sitting - Row Name 01/26/251315 Self-Feeding Assessment/Training [place] Level (Feeding) liquids to mouth;maximum assist (25% patient effort);set up -KF Position (Feeding) supported sitting - User Thompson (r) = Recorded By, (t) = Taken By, (c) = Cosigned By Initials Name Provider Type KF Saleem, Shelly, OT Occupational Therapist Obj/Interventions Row Name 01/26/25 1318 Sensory Assessment (Somatosensory) Sensory Assessment (Somatosensory) UE sensation intact -KF Row Name 01/26/25 1318 Vision Assessment/Intervention Visual Impairment/Limitations WFL -KF Row Name 01/26/25 1318 Range of Motion Comprehensive General Range of Motion bilateral upper extremity ROM WFL -KF Row Name 01/26/25 1318 Strength Comprehensive (MMT) General Manual Muscle Testing (MMT) Assessment upper extremity strength deficits identified -KF Row Name 01/26/25 1318 Upper Extremity (Manual Muscle Testing) Comment, MMT: Upper Extremity BUE at least 3+/5, formal assessment limited by pt impulsivity -KF Row Name 01/26/25 1318 Motor Skills Motor Skills coordination -KF Coordination bilateral;upper extremity;fine motor deficit;WFL -KF Row Name 01/26/25 1318 Balance Balance Assessment sitting static balance;sitting dynamic balance;standing static balance;standing dynamic balance -KF Static Sitting Balance contact guard -KF Dynamic Sitting Balance contact guard -KF Position, Sitting Balance unsupported;sitting edge of bed -KF Static Standing Balance minimal assist;1-person assist -KF Dynamic Standing Balance minimal assist;2-person assist -KF Position/Device Used, Standing Balance supported;walker, front-wheeled -KF Balance Interventions sitting;standing;sit to stand;supported;static;dynamic;occupation based/functional task -KF User Thompson (r) = Recorded By, (t) = Taken By, (c) = Cosigned By Initials Name Provider Type KF Shelly Saleem OT Occupational Therapist Goals/Plan Row Name 01/26/25 1321 Transfer Goal 1 (OT) Activity/Assistive Device (Transfer Goal 1, OT) [id number];commode -KF [place] Level/Cues Needed (Transfer Goal 1, OT) standby assist -KF Time Frame (Transfer Goal 1, OT) chcf goal (LTG);10 days -KF Progress/Outcome (Transfer Goal 1, OT) new goal -KF Row Name 01/26/25 1321 Dressing Goal 1 (OT) Activity/Device (Dressing Goal 1, OT) upper body dressing;lower body dressing -KF [place]/Cues Needed (Dressing Goal 1, OT) standby assist -KF Time Frame (Dressing Goal 1, OT) short term goal (STG);5 days -KF Strategies/Barriers (Dressing Goal 1, OT) ADL AE PRN -KF Progress/Outcome (Dressing Goal 1, OT) new goal -KF Row Name 01/26/25 1321 Grooming Goal 1 (OT) Activity/Device (Grooming Goal 1, OT) hair care;oral care;wash face, hands -KF [place] (Grooming Goal 1, OT) standby assist -KF Time Frame (Grooming Goal 1, OT) [employer] goal (LTG);10 days -KF Strategies/Barriers (Grooming Goal 1, OT) standing sinkside -KF Progress/Outcome (Grooming Goal 1, OT) new goal -KF Row Name 01/26/25 1321 Therapy Assessment/Plan (OT) Planned Therapy Interventions (OT) activity tolerance training;adaptive equipment training;BADL retraining;functional balance retraining;occupation/activity based interventions;patient/caregiver educa tion/training;ROM/therapeutic exercise;strengthening exercise;transfer/mobility retraining -KF User Thompson (r) = Recorded By, (t) = Taken By, (c) = Cosigned By Initials Name Provider Type KF Shelly Saleem, OT Occupational Therapist Clinical Impression Row Name 01/26/25 1313 Pain Assessment Pretreatment Pain Rating 10/10 -KF Posttreatment Pain Rating 10/10 -KF Pain Side/Orientation generalized -KF Pain Management Interventions activity modification encouraged;exercise or physical activity utilized;positioning techniques utilized;nursing notified -KF Response to Pain Interventions no change per patient report -KF Row Name 01/26/25 1319 Plan of Care Review Plan of Care Reviewed With patient -KF Outcome Evaluation OT evaluation completed. The pt presents with decreased safety awareness, generalized weakness, decreased activity tolerance, and balance deficits warranting continued IP OT services. The pt ambulated <household distance using a RWx with Martin x2. Frequent cues provided for safety awareness. Recommend d/c to SNF, but will monitor pt progress closely. -KF Row Name 01/26/25 131 Therapy Assessment/Plan (OT) Patient/Family Therapy Goal Statement (OT) Return home -KF Rehab Potential (OT) good -KF Criteria for Skilled Therapeutic Interventions Met (OT) yes;skilled treatment is necessary -KF Therapy Frequency (OT) daily -KF Predicted Duration of Therapy Intervention (OT) 10 days -KF Row Name 01/26/25 1318 Therapy Plan Review/Discharge Plan (OT) Anticipated Discharge Disposition (OT) assisted facility -KF Row Name 01/26/25 1319 Vital Signs Pre Systolic BP Rehab 127 -KF Pre Treatment Diastolic BP 56 -KF Post Systolic BP Rehab 106 -KF Post Treatment Diastolic BP 48 -KF Pretreatment Heart Rate (beats/min) 90 -KF Posttreatment Heart Rate (beats/min) 79 -KF Pre SpO2 (%) 100 -KF O2 Delivery Pre Treatment room air -KF Post SpO2 (%) 100 -KF O2 Delivery Post Treatment room air -KF Pre Patient Position Supine -KF Intra Patient Position Standing -KF Post Patient Position Sitting -KF Row Name 01/26/25 1319 Positioning and Restraints Pre-Treatment Position in bed -KF Post Treatment Position chair -KF In Chair notified nsg;reclined;call light within reach;encouraged to call for assist;exit alarm on;waffle cushion;legs elevated -KF Restraints released:;reapplied:;notified nsg:;soft limb -KF User Thompson (r) = Recorded By, (t) = Taken By, (c) = Cosigned By Initials Name Provider Type KF Shelly Saleem, OT Occupational Therapist Outcome Measures Row Name 01/26/25 1321 How much help from another is currently needed... Putting on and taking off regular lower body clothing? 2 -KF Bathing (including washing, rinsing, and drying) 2 -KF Toileting (which includes using toilet bed briceno or urinal) 2 -KF Putting on and taking off regular upper body clothing 3 -KF Taking care of personal grooming (such as brushing teeth) 3 -KF Eating meals 2 -KF AM-PAC 6 Clicks Score (OT) 14 -KF Row Name 01/26/25 0800 01/26/25 0230 How much help from another person do you currently need... Turning from your back to your side while in flat bed without using bedrails? 2 -JW 2 -REGI Moving from lying on back to sitting on the side of a flat bed without bedrails? 2 -JW 2 -REGI Moving to and from a bed to a chair (including a wheelchair)? 2 -JW 2 -REGI Standing up from a chair using your arms (e.g., wheelchair, bedside chair)? 2 - JW 2 -REGI Climbing 3-5 steps with a railing? 2 -JW 2 -REGI To walk in hospital room? 2 -JW 2 -REGI AM-PAC 6 Clicks Score (PT) 12 - 12 -REGI Row Name 01/26/25 1321 Modified [place] Scale Pre-Stroke Modified Dimitry Scale 6 - Unable to determine (UTD) from the medical record documentation - Modified Dimitry Scale 4 - Moderately severe disability. Unable to walk without assistance, and unable to attend to own bodily needs without assistance. - Row Name 01/26/25 1321 Functional Assessment Outcome Measure Options AM-PAC 6 Clicks Daily Activity (OT);Modified Dimitry - User Thompson (r) = Recorded By, (t) = Taken By, (c) = Cosigned By Initials Name Provider Type Lainey Torres, SPENCER Registered Nurse Shelly Lam OT Occupational Therapist Minnie Solomon RN Registered Nurse Occupational Therapy Education Title: PT OT POST ACUTE CARE NURSE PRACTITIONER Therapies (In Progress) Topic: Occupational Therapy (In Progress) Point: ADL training (In Progress) Learning Progress Summary Patient Acceptance, TB,E, NR by at 01/26/2025 1144 Point: Precautions (In Progress) Learning Progress Summary Patient Acceptance, TB,E, NR by at 01/26/2025 1144 Point: Body mechanics (In Progress) Learning Progress Summary Patient Acceptance, TB,E, NR by at 01/26/2025 1144 User Thompson Initials Effective Dates Name Provider Type [facility] 11/08/22 - Shelly Saleem, MALICK Occupational Therapist OT OT Recommendation and Plan Recommended discharge disposition is based on the functional assessment performed by PT/OT/Speech therapy (as applicable) and may not reflect the medical necessity determined by your provider or services covered by an individual patient's insurance plan or patient resource. Planned Therapy Interventions (OT): activity tolerance training, adaptive equipment training, BADL retraining, functional balance retraining, occupation/activity based interventions, patient/caregiver education/training, ROM/therapeutic exercise, strengthening exercise, transfer/mobility retraining Therapy Frequency (OT): daily Plan of Care Review Plan of Care Reviewed With: patient Outcome Evaluation: OT evaluation completed. The pt presents with decreased safety awareness, generalized weakness, decreased activity tolerance, and balance deficits warranting continued IP OT services. The pt ambulated <household distance using a RWx with Martin x2. Frequent cues provided for safety awareness. Recommend d/c to SNF, but will monitor pt progress closely. Time Calculation: Evaluation Complexity (OT) Review Occupational Profile/Medical/Therapy History Complexity: expanded/moderate complexity Assessment, Occupational Performance/Identification of Deficit Complexity: 3-5 performance deficits Clinical Decision Making Complexity (OT): detailed assessment/moderate complexity Overall Complexity of Evaluation (OT): moderate complexity Time Calculation- OT Row Name 01/26/25 1323 Time Calculation- OT OT Start Time 1144 -KF OT Received On 01/26/25 -KF OT Goal Re-Cert Due Date 02/05/25 -KF Untimed Charges OT Eval/Re-eval Minutes 48 -KF Total Minutes Untimed Charges Total Minutes 48 -KF Total Minutes 48 -KF User Thompson (r) = Recorded By, (t) = Taken By, (c) = Cosigned By Initials Name Provider Type KF Shelly Saleem OT Occupational Therapist Therapy Charges for Today Code Description Service Date Service Provider Modifiers Qty [id number] OT EVAL MOD COMPLEXITY 4 01/26/2025 Shelly Saleem OT GO 1 Shelly Saleem OT 01/26/2025 * Therapy Evaluation - Dinora Huston, PT - 01/26/2025 11:44 AM EDT Images from the original note were not included. Patient Name: Farrah Atkinson : 1950 Today's Date: 01/26/2025 Admit Date: 01/26/2025 Visit Dx: ICD-10-CM ICD-9-CM 1. 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 Cholelithiasis Clostridium difficile infection 05/2017 hospitalized for 1 week Colon polyp 1989 First colonoscopy at age 36 resulted in removal iof 13 precancerous polyps[address] 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 Depression Headache 1989. Migraines became chronic and very diffucult to manage. Multiple treatment regimens were attempted. Some were helpful. Migraines ceased at menopause with few occasions thereafter. Heart murmur Hepatitis C history- currently tests negative by GI Hyperlipidemia Hypertension 2014 Drug treatment has been successful with a few recent episodic spijes in past 2-3 years. Hyponatremia, mild 07/19/2018 IBS (irritable bowel syndrome) Osteopenia 2001 Chronic, progressive cartilage breakdown. First total joint (L shoulder 2001). Since then have had all major joints replaced except L knee and R hip. R total hip scheduled 04/14/22. L knee to follow. Wears reading eyeglasses Past Surgical History: Procedure Laterality Date BUNIONECTOMY Bilateral x2 SECTION COLONOSCOPY 2014 ENDOSCOPY JOINT REPLACEMENT Previously covered. LAPAROSCOPIC TUBAL LIGATION TOTAL HIP ARTHROPLASTY Left TOTAL SHOULDER ARTHROPLASTY Left TOTAL SHOULDER ARTHROPLASTY Right 07/18/2018 Procedure: TOTAL SHOULDER ARTHROPLASTY RIGHT; Surgeon: Bautista Luis MD; Location: [facility]; Service: Orthopedics TUBAL ABDOMINAL LIGATION 1989 General Information Row Name 01/26/25 1328 Physical Therapy Time and Intention Document Type evaluation -TT Mode of Treatment physical therapy;co-treatment -TT Row Name 01/26/25 1320 General Information Patient Profile Reviewed yes -TT Prior Level of Function independent:;all household mobility;community mobility;ADL's;driving Pt is somewhat questionnable historian, Rollator at baseline. Noting history of falls, unable to describe -TT Existing Precautions/Restrictions fall;other (see comments) Duran -TT Barriers to Rehab medically complex;previous functional deficit -TT Row Name 01/26/25 1327 Living Environment Current Living Arrangements home -TT People in Home spouse -TT Row Name 01/26/25 1328 Home Main Entrance Number of Stairs, Main Entrance other (see comments) Pt reports she does have stairs at home, but was unsure how many. -TT Row Name 01/26/25 1324 Cognition Orientation Status (Cognition) oriented x 3;verbal cues/prompts needed for orientation -TT Row Name 01/26/25 1324 Safety Issues/Impairments Affecting Functional Mobility Safety Issues Affecting Function (Mobility) awareness of need for assistance;impulsivity;insight into deficits/self-awareness;judgment;positioning of assistive device;safety precaution awareness;problem-solving;safety precautions follow-through/compliance;sequencing abilities -TT Impairments Affecting Function (Mobility) balance;cognition;coordination;endurance/activity toleranc e;strength;postural/trunk control;pain -TT Cognitive Impairments, Mobility Safety/Performance awareness, need for assistance;insight into defic its/self-awareness;judgment;problem-solving/reasoning;impulsivity;safety precaution awareness;safety precaution follow-through;sequencing abilities -TT User Thompson (r) = Recorded By, (t) = Taken By, (c) = Cosigned By Initials Name Provider Type TT Dinora Huston, PT Physical Therapist Mobility Row Name 01/26/25 1331 Bed Mobility Bed Mobility supine-sit -TT Supine-Sit [place] (Bed Mobility) standby assist -TT Assistive Device (Bed Mobility) bed rails;head of bed elevated -TT Comment, (Bed Mobility) Cues for improved sequencing and safety awareness. Impulsively attempting to transition to EOb prior to appropriate line management requiring frequent cues. -TT Row Name 01/26/25 1331 Transfers Comment, (Transfers) STS from EOB w/ FWW. -TT Row Name 01/26/25 1331 Sit-Stand Transfer Sit-Stand [place] (Transfers) minimum assist (75% patient effort);2 person assist;verbal cues -TT Assistive Device (Sit-Stand Transfers) walker, front-wheeled -TT Comment, (Sit-Stand Transfer) Cues for UE placement and improved initiation. Physical assistance d/t impaired initiation and unsteadiness. W/ return to sitting, cues for improved AD management and eccentric control. -TT Row Name 01/26/25 1331 Gait/Stairs (Locomotion) [place] Level (Gait) nonverbal cues (demo/gesture);verbal cues;minimum assist (75% patient effort);2 person assist -TT Assistive Device (Gait) walker, front-wheeled -TT Patient was able to Ambulate yes -TT Distance in Feet (Gait) 12 +12 ft; standing rest -TT Deviations/Abnormal Patterns (Gait) gait speed decreased;stride length decreased;weight shifting decreased -TT Bilateral Gait Deviations forward flexed posture;heel strike decreased -TT Comment, (Gait/Stairs) Pt demonstrating step-to gait pattern requiring cues for upright posture/forward gaze, improved weight shift, increased step length and management of AD. Limited carryover for positioning of FWW in relation to GENTRY requiring additional assistance. No overt LOB, however, assistd/t unsteadniess. Deferred further ambulation d/t fatigue. -TT User Thompson (r) = Recorded By, (t) = Taken By, (c) = Cosigned By Initials Name Provider Type TT Dinora Huston PT Physical Therapist Obj/Interventions Row Name 01/26/25 1331 Range of Motion Comprehensive General Range of Motion bilateral lower extremity ROM WFL -TT Row Name 01/26/25 1332 Strength Comprehensive (MMT) General Manual Muscle Testing (MMT) Assessment lower extremity strength deficits identified -TT Comment, General Manual Muscle Testing (MMT) Assessment BLE grossly 4/5 observed w/ functional mobility -TT Row Name 01/26/25 1332 Balance Balance Assessment sitting static balance;sitting dynamic balance;standing static balance;standing dynamic balance -TT Static Sitting Balance verbal cues;contact guard -TT Dynamic Sitting Balance contact guard;verbal cues -TT Position, Sitting Balance unsupported;sitting edge of bed -TT Static Standing Balance verbal cues;minimal assist;1 person to manage equipment -TT Dynamic Standing Balance verbal cues;non-verbal cues (demo/gesture);minimal assist;2-person assist -TT Position/Device Used, Standing Balance supported;walker, front-wheeled -TT Balance Interventions sitting;standing;sit to stand;supported;static;dynamic;occupation based/functional task;weight shifting activity -TT Row Name 01/26/25 1330 Sensory Assessment (Somatosensory) Sensory Assessment (Somatosensory) LE sensation intact -TT User Thompson (r) = Recorded By, (t) = Taken By, (c) = Cosigned By Initials Name Provider Type TT Dinora Huston PT Physical Therapist Goals/Plan Row Name 01/26/25 1793 Bed Mobility Goal 1 (PT) Activity/Assistive Device (Bed Mobility Goal 1, PT) sit to supine/supine to sit -TT [place] Level/Cues Needed (Bed Mobility Goal 1, PT) independent -TT Time Frame (Bed Mobility Goal 1, PT) short term goal (STG);4 days -TT Progress/Outcomes (Bed Mobility Goal 1, PT) new goal -TT Row Name 01/26/25 9088 Transfer Goal 1 (PT) Activity/Assistive Device (Transfer Goal 1, PT) vpp-st-yduxp/vcayg-si-gdm;irr-dc-nxtmw/wvdgr-bm-xvo-TT [place] Level/Cues Needed (Transfer Goal 1, PT) modified independence -TT Time Frame (Transfer Goal 1, PT) [employer] goal (LTG);10 days -TT Progress/Outcome (Transfer Goal 1, PT) new goal -TT Row Name 01/26/25 1335 Gait Training Goal 1 (PT) Activity/Assistive Device (Gait Training Goal 1, PT) gait (walking locomotion);decrease fall risk;increase endurance/gait distance -TT [place] Level (Gait Training Goal 1, PT) modified independence -TT Distance (Gait Training Goal 1, PT) 250ft -TT Time Frame (Gait Training Goal 1, PT) [employer] goal (LTG);10 days -TT Progress/Outcome (Gait Training Goal 1, PT) new goal -TT Row Name 01/26/25 7383 Therapy Assessment/Plan (PT) Planned Therapy Interventions (PT) balance training;bed mobility training;gait training;home exercise program;patient/family education;postural re- education;stair training;strengthening;transfer training -TT User Thompson (r) = Recorded By, (t) = Taken By, (c) = Cosigned By Initials Name Provider Type TT Dinora Huston, PT Physical Therapist Clinical Impression Row Name 01/26/25 9158 Pain Pretreatment Pain Rating 10/10 -TT Posttreatment Pain Rating 10/10 -TT Pain Side/Orientation generalized -TT Pain Management Interventions activity modification encouraged;exercise or physical activity utilized;nursing notified;positioning techniques utilized -TT Response to Pain Interventions no change per patient report -TT Row Name 01/26/25 4992 Plan of Care Review Plan of Care Reviewed With patient -TT Progress no change -TT Outcome Evaluation PT initial evaluation completed. Pt presenting w/ impaired safety awareness, balance deficits, generalized weakness, decreased activity tolerance and increased falls risk compared to reported baseline warranting skilled IPPT interventions. Unable to ambulate greater than 12ft w/ FWW prior to required rest; frequent cues for improved safety awareness and AD management. PT recommending SNF upon d/c to promote best functional outcome, however, will closely monitor pt's progress.-TT Row Name 01/26/25 3978 Therapy Assessment/Plan (PT) Patient/Family Therapy Goals Statement (PT) No PT goals stated at time of eval. -TT Rehab Potential (PT) good -TT Criteria for Skilled Interventions Met (PT) yes;meets criteria;skilled treatment is necessary -TT Therapy Frequency (PT) daily -TT Predicted Duration of Therapy Intervention (PT) 10 days -TT Row Name 01/26/25 1335 Vital Signs Pre Systolic BP Rehab 127 -TT Pre Treatment Diastolic BP 56 -TT Post Systolic BP Rehab 106 -TT Post Treatment Diastolic BP 48 -TT Pretreatment Heart Rate (beats/min) 90 -TT Posttreatment Heart Rate (beats/min) 79 -TT Pre SpO2 (%) 100 -TT O2 Delivery Pre Treatment room air -TT O2 Delivery Intra Treatment room air -TT Post SpO2 (%) 100 -TT O2 Delivery Post Treatment room air -TT Pre Patient Position Supine -TT Intra Patient Position Standing -TT Post Patient Position Sitting -TT Row Name 01/26/25 1335 Positioning and Restraints Pre-Treatment Position in bed -TT Post Treatment Position chair -TT In Chair reclined;call light within reach;encouraged to call for assist;exit alarm on;with nsg;withother staff;waffle cushion;legs elevated;heels elevated -TT Restraints released:;reapplied:;notified nsg:;soft limb -TT User Thompson (r) = Recorded By, (t) = Taken By, (c) = Cosigned By Initials Name Provider Type TT Dinora Huston, PT Physical Therapist Outcome Measures Row Name 01/26/25 1338 01/26/25 0800 How much help from another person do you currently need... Turning from your back to your side while in flat bed without using bedrails? 3 -TT 2 -JW Moving from lying on back to sitting on the side of a flat bed without bedrails? 3 -TT 2 -JW Moving to and from a bed to a chair (including a wheelchair)? 3 -TT 2 -JW Standing up from a chair using your arms (e.g., wheelchair, bedside chair)? 3 - TT 2 -JW Climbing 3-5 steps with a railing? 2 -TT 2 -JW To walk in hospital room? 3 -TT 2 -JW AM-PAC 6 Clicks Score (PT) 17 -TT 12 -JW Highest Level of Mobility Goal Stand (1 or More Minutes)-5 -TT Move to Chair/Commode-4 -JW Row Name 10/27/25 0230 How much help from another person do you currently need... Turning from your back to your side while in flat bed without using bedrails? 2 -REGI Moving from lying on back to sitting on the side of a flat bed without bedrails? 2 -REGI Moving to and from a bed to a chair (including a wheelchair)? 2 -REGI Standing up from a chair using your arms (e.g., wheelchair, bedside chair)? 2 -REGI Climbing 3-5 steps with a railing? 2 -REGI To walk in hospital room? 2 -REGI AM-PAC 6 Clicks Score (PT) 12 -REGI Highest Level of Mobility Goal Move to Chair/Commode-4 -REGI Row Name 01/26/25 1338 01/26/25 1321 Modified [place] Scale Pre-Stroke Modified [place] Scale 6 - Unable to determine (UTD) from the medical record documentation -TT 6 - Unable to determine (UTD) from the medical record documentation -KF Modified [place] Scale 4 - Moderately severe disability. Unable to walk without assistance, and unable to attend to own bodily needs without assistance. -TT 4 - Moderately severe disability. Unable towalk without assistance, and unable to attend to own bodily needs without assistance. -KF Row Name 01/26/25 1338 01/26/25 1321 Functional Assessment Outcome Measure Options AM-PAC 6 Clicks Basic Mobility (PT);Modified [place] -TT AM-PAC 6 Clicks Daily Activity (OT);Modified [place] -KF User Thompson (r) = Recorded By, (t) = Taken By, (c) = Cosigned By Initials Name Provider Type Lainey Torres, SPENCER Registered Nurse Shelly Lam, OT Occupational Therapist Minnie Solomon, SPENCER Registered Nurse TT Dinora Huston, PT Physical Therapist Physical Therapy Education Title: PT OT POST ACUTE CARE NURSE PRACTITIONER Therapies (In Progress) Topic: Physical Therapy (In Progress) Point: Mobility training (In Progress) Learning Progress Summary Patient Acceptance, E, NR by TT at 01/26/20251338 Point: Home exercise program (Not Started) Learner Progress: Not documented in this visit. Point: Body mechanics (In Progress) Learning Progress Summary Patient Acceptance, E, NR by TT at 01/26/20251338 Point: Precautions (In Progress) Learning Progress Summary Patient Acceptance, E, NR by TT at 01/26/2025 1339 User Thompson Initials Effective Dates Name Provider Type Discipline TT 08/29/24 - Dinora Huston PT Physical Therapist PT PT Recommendation and Plan Recommended discharge disposition is based on the functional assessment performed by PT/OT/Speech therapy (as applicable) and may not reflect the medical necessity determined by your provider or services covered by an individual patient's insurance plan or patient resource. Planned Therapy Interventions (PT): balance training, bed mobility training, gait training, home exercise program, patient/family education, postural re- education, stair training, strengthening, transfer training Therapy Frequency (PT): daily Progress: no change Outcome Evaluation: PT initial evaluation completed. Pt presenting w/ impaired safety awareness, balance deficits, generalized weakness, decreased activity tolerance and increased falls risk comparedto reported baseline warranting skilled IPPT interventions. Unable to ambulate greater than 12ft w/FWW prior to required rest; frequent cues for improved safety awareness and AD management. PT recommending SNF upon d/c to promote best functional outcome, however, will closely monitor pt's progress. Time Calculation: PT Evaluation Complexity History, PT Evaluation Complexity: 1-2 personal factors and/or comorbidities Examination of Body Systems (PT Eval Complexity): total of 3 or more elements Clinical Presentation (PT Evaluation Complexity): evolving Clinical Decision Making (PT Evaluation Complexity): moderate complexity Overall Complexity (PT Evaluation Complexity): moderate complexity PT Charges Row Name 01/26/25 1338 Time Calculation Start Time 1144 -TT PT Received On 01/26/25 -TT PT Goal Re-Cert Due Date 02/05/25 -TT Untimed Charges PT Eval/Re-eval Minutes 46 -TT Total Minutes Untimed Charges Total Minutes 46 -TT Total Minutes 46 -TT User Thompson (r) = Recorded By, (t) = Taken By, (c) = Cosigned By Initials Name Provider Type TT Dinora Huston PT Physical Therapist Therapy Charges for Today Code Description Service Date Service Provider Modifiers Qty [id number] PT EVAL MOD COMPLEXITY 4 01/26/2025 Dinora Huston PT GP 1 PT G-Codes Outcome Measure Options: AM-PAC 6 Clicks Basic Mobility (PT), Modified [place] AM-PAC 6 Clicks Score (PT): 17 AM-PAC 6 Clicks Score (OT): 14 Modified [place]imitry Scale: 4 - Moderately severe disability. Unable to walk without assistance, and unable to attend to own bodily needs without assistance. PT Discharge Summary Anticipated Discharge Disposition (PT): assisted facility Dinora Huston, PT 01/26/2025 documented in this encounter Plan of Treatment Not on file documented as of this encounter Procedures Procedure Name Priority Date/Time Associated Diagnosis Comments SCANNED - TELEMETRY 01/29/2025 2 :57 AM EDT POTASSIUM Timed 01/28/2025 9:51 PM EDT CBC (NO DIFF) Routine 01/28/2025 10:34 AM EDT BASIC METABOLIC PANEL Routine 01/28/2025 10:34 AM EDT SCANNED - TELEMETRY 01/28/2025 8 :20 AM EDT POTASSIUM Timed 01/27/2025 6:45 PM EDT CBC (NO DIFF) Routine 01/27/2025 4:54 AM EDT BASIC METABOLIC PANEL Routine 01/27/2025 4:54 AM EDT MRI BRAIN W CONTRAST Routine 01/27/2025 1:28 AM EDT POCT GLUCOSE FINGERSTICK Routine 01/26/2025 5:38 PM EDT POCT GLUCOSE FINGERSTICK Routine 01/26/2025 12:19 PM EDT ECHO COMPLETE W/ DOPPLER AND COLOR FLOW Routine 01/26/2025 11:26 AM EDT LACTIC ACID, REFLEX STAT 01/26/2025 1 0:44 AM EDT LACTIC ACID, REFLEX STAT 01/26/2025 6 :51 AM EDT HEMOGLOBIN A1C Routine 01/26/2025 6:51 AM EDT VANCOMYCIN, RANDOM Routine 01/26/2025 6: 51 AM EDT WOUND OSTOMY EVAL AND TREAT Routine 01/26/2025 6:39 AM EDT EEG AWAKE OR ASLEEP PORTABLE Routine 01/26/2025 6:30 AM EDT MRI BRAIN WO CONTRAST STAT 01/26/2025 5:25 AM EDT POCT GLUCOSE FINGERSTICK Routine 01/26/2025 5:20 AM EDT HIGH SENSITIVITIY TROPONIN T 1HR Timed 01/26/2025 3:28 AM EDT ECG 12-LEAD STAT 01/26/2025 3:10 AM EDT URINALYSIS, MICROSCOPIC ONLY STAT 01/26/2025 2:57 AM EDT URINALYSIS W/ MICROSCOPIC IF INDICATED (NO CULTURE) STAT 01/26/2025 2:57 AM EDT URINE DRUG SCREEN STAT 01/26/2025 2:5 7 AM EDT FENTANYL, URINE STAT 01/26/2025 2:57 AM EDT POCT GLUCOSE FINGERSTICK Routine 01/26/2025 2:38 AM EDT LASC SLIDE CREATION STAT 01/26/2025 2 :09 AM EDT TSH RFX ON ABNORMAL TO FREE T4 STAT 01/26/2025 2:09 AM EDT PROCALCITONIN STAT 01/26/2025 2:09 AM EDT CBC WITH AUTO DIFFERENTIAL STAT 01/26/2025 2:09 AM EDT TROPONIN STAT 01/26/2025 2:09 AM EDT MANUAL DIFFERENTIAL STAT 01/26/2025 2 :09 AM EDT APTT STAT 01/26/2025 2:09 AM EDT PROTIME-INR STAT 01/26/2025 2:09 AM EDT CBC AND DIFFERENTIAL STAT 01/26/2025 2:09 AM EDT PHOSPHORUS STAT 01/26/2025 2:09 AM EDT MAGNESIUM STAT 01/26/2025 2:09 AM EDT LIPASE STAT 01/26/2025 2:09 AM EDT LACTIC ACID, PLASMA STAT 01/26/2025 2 :09 AM EDT CK STAT 01/26/2025 2:09 AM EDT CALCIUM, IONIZED STAT 01/26/2025 2:09 AM EDT LIPID PANEL STAT 01/26/2025 2:09 AM EDT COMPREHENSIVE METABOLIC PANEL STAT 01/26/2025 2:09 AM EDT BLOOD CULTURE STAT 01/26/2025 2:00 AM EDT BLOOD CULTURE STAT 01/26/2025 2:[address] ANGIOGRAM HEAD W AI ANALYSIS OF LVO STAT 01/26/2025 1:[address] ANGIOGRAM NECK STAT 01/26/2025 1:[address] HEAD WO CONTRAST STAT 01/26/2025 1 :31 AM EDT SCANNED - IMAGING 01/26/2025 SCANNED - IMAGING 01/26/2025 SCANNED - IMAGING 01/26/2025 SCANNED - IMAGING 01/26/2025 SCANNED - IMAGING 01/26/2025 SCANNED - IMAGING 01/26/2025 SCANNED - IMAGING 01/26/2025 SCANNED - LABS 01/26/2025 CT OUTSIDE HEAD Routine 01/25/2025 12:[address] OUTSIDE SPINE Routine 01/25/2025 12:[address] OUTSIDE SPINE Routine 01/25/2025 12:[address] OUTSIDE SPINE Routine 01/25/2025 12:[address] OUTSIDE ABD/PELVIS Routine 01/25/2025 12:[address] OUTSIDE ABD/PELVIS Routine 01/25/2025 12:[address] OUTSIDE CHEST Routine 01/25/2025 12:0 0 AM EDT documented in this encounter Results * Telemetry Scan (01/29/2025 2:57 AM EDT) [facility] ECG ORDERABLES Final Result * Potassium (01/28/2025 9:51 PM EDT) [facility] Potassium 3.8 3.5 - 5.2 mmol/L 01/28/2025 10:10 PM EDT [facility] Blood Venipuncture / Unknown 01/28/2025 9:51 PM EDT 01/28/2025 9:57 PM EDT Jessica Valdovinos DO LAB BLOOD ORDERABLES F inal Result [facility]
[address] [place] [address], [place] [phone] * (ABNORMAL) CBC (No Diff) (01/28/2025 10:34 AM EDT) WBC 12.20(H) 3.40 - 10.80 10*3/mm3 01/28/2025 11:45 AM EDT [facility] RBC 3.86 3.77 - 5.28 10*6/mm3 01/28/2025 11:45 AM EDT [facility] Hemoglobin 11.6(L) 12.0 - 15.9 g/dL 01/28/2025 11:45 AM EDT [facility] Hematocrit 35.5 34.0 - 46.6 % 01/28/2025 11:45 AM EDT [facility] MCV 92.0 79.0 - 97.0 fL 01/28/2025 11:45 AM EDT [facility] MCH 30.1 26.6 - 33.0 pg 01/28/2025 11:45 AM EDT [facility] MCHC 32.7 31.5 - 35.7 g/dL 01/28/2025 11:45 AM EDT [facility] RDW 13.5 12.3 - 15.4 % 01/28/2025 11:45 AM EDT [facility] RDW-SD 46.2 37.0 - 54.0 fl 01/28/2025 11:45 AM EDT [facility] MPV 9.6 6.0 - 12.0 fL 01/28/2025 11:45 AM EDT [facility] Platelets 301 140 - 450 10*3/mm3 01/28/2025 11:45 AM EDT [facility] Blood Venipuncture / Unknown 01/28/2025 10:34 AM EDT 01/28/2025 11:41 AM EDT us Andrew Barkley MD LAB BLOOD ORDERABLES Final R esult [facility]
[address] [place] [address], * (ABNORMAL) Basic Metabolic Panel (01/28/2025 10:34 AM EDT) Glucose 117(H) 65 - 99 mg/dL 01/28/2025 12:14 PM EDT [facility] BUN 6.4(L) 8.0 - 23.0 mg/dL 01/28/2025 12:14 PM EDT [facility] Creatinine 0.85 0.57 - 1.00 mg/dL 01/28/2025 12:14 PM EDT [facility] Sodium 139 136 - 145 mmol/L 01/28/2025 12:14 PM EDT [facility] Potassium 3.3(L) 3.5 - 5.2 mmol/L 01/28/2025 12:14 PM EDT [facility] Chloride 103 98 - 107 mmol/L 01/28/2025 12:14 PM EDT [facility] CO2 20.6(L) 22.0 - 29.0 mmol/L 01/28/2025 12:14 PM EDT [facility] Calcium 8.8 8.6 - 10.5 mg/dL 01/28/2025 12:14 PM EDT [facility] BUN/Creatinine Ratio 7.5 7.0 - 25.0 01/28/2025 12:14 PM EDT [facility] Anion Gap 15.4(H) 5.0 - 15.0 mmol/L 01/28/2025 12:14 PM EDT [facility] eGFR 72.4 >60.0 mL/min/1.7 3 01/28/2025 12:14 PM T [facility] Blood Venipuncture / Unknown 01/28/2025 10:34 AM EDT 01/28/2025 11:41 AM EDT [facility] - 01/28/2025 12:14 PM EDT GFR Categories in Chronic Kidney Disease (CKD) GFR Category GFR (mL/min/1.73) Interpretation G1 90 or greater Normal or high (1) G2 60-89 Mild decrease (1) G3a 45-59 Mild to moderate decrease G3b 30-44 Moderate to severe decrease G4 15-29 Severe decrease G5 14 or less Kidney failure (1)In the absence of evidence of kidney disease, neither GFR category G1 or G2 fulfill the criteria for CKD. eGFR calculation 2020 CKD-EPI creatinine equation, which does not include race as a factor Andrew Barkley MD LAB BLOOD ORDERABLES Final R esult Performing Organization Address City/[facility]/ZIP Co de Phone Number [facility]
[address] [place] [address], * Telemetry Scan (01/28/2025 8:20 AM EDT) [facility] ECG ORDERABLES Final Result * Potassium (01/27/2025 6:45 PM EDT) Pathologist [facility] Potassium 3.8 3.5 - 5.2 mmol/L 01/27/2025 7:27 PM EDT [facility] Comment:Specimen hemolyzed. Result may be falsely elevated. Blood Venipuncture / Unknown 01/27/2025 6:45 PM EDT 01/27/2025 7:06 PM EDT Andrew Barkley MD LAB BLOOD ORDERABLES Final R esult Performing Organization Address City/[facility]/ZIP Co de Phone Number [facility]
[address] [place] [address], * (ABNORMAL) Basic Metabolic Panel (01/27/2025 4:54 AM EDT) Glucose 92 65 - 99 mg/dL 01/27/2025 5:36 AM EDT [facility] BUN 10.9 8.0 - 23.0 mg/dL 01/27/2025 5:36 AM EDT [facility] Creatinine 0.96 0.57 - 1.00 mg/dL 01/27/2025 5:36 AM EDT [facility] Sodium 141 136 - 145 mmol/L 01/27/2025 5:36 AM EDT [facility] Potassium 3.2(L) 3.5 - 5.2 mmol/L 01/27/2025 5:36 AM EDT [facility] Chloride 107 98 - 107 mmol/L 01/27/2025 5:36 AM EDT [facility] CO2 22.6 22.0 - 29.0 mmol/L 01/27/2025 5:36 AM EDT [facility] Calcium 8.6 8.6 - 10.5 mg/dL 01/27/2025 5:36 AM EDT [facility] BUN/Creatinine Ratio 11.4 7.0 - 25.0 01/27/2025 5:36 AM EDT [facility] Anion Gap 11.4 5.0 - 15.0 mmol/L 01/27/2025 5:36 AM EDT [facility] eGFR 62.6 >60.0 mL/min/1.7 3 01/27/2025 5:36 AM EDT [facility] Blood Venipuncture / Unknown 01/27/2025 4:54 AM EDT 01/27/2025 5:02 AM EDT [facility] - 01/27/2025 5:36 AM EDT GFR Categories in Chronic Kidney Disease (CKD) GFR Category GFR (mL/min/1.73) Interpretation G1 90 or greater Normal or high (1) G2 60-89 Mild decrease (1) G3a 45-59 Mild to moderate decrease G3b 30-44 Moderate to severe decrease G4 15-29 Severe decrease G5 14 or less Kidney failure (1)In the absence of evidence of kidney disease, neither GFR category G1 or G2 fulfill the criteria for CKD. eGFR calculation 2020 CKD-EPI creatinine equation, which does not include race as a factor us Maru Martinez [employer]IST LAB BLOOD ORDERABLES Final Result [facility]
[address] [place] [address], * (ABNORMAL) CBC (No Diff) (01/27/2025 4:54 AM EDT) WBC 9.35 3.40 - 10.80 10*3/mm3 01/27/2025 5:32 AM EDT [facility] Comment:Result checked RBC 3.40(L) 3.77 - 5.28 10*6/mm3 01/27/2025 5:32 AM EDT [facility] Hemoglobin 10.2(L) 12.0 - 15.9 g/dL 01/27/2025 5:32 AM EDT [facility] Hematocrit 32.3(L) 34.0 - 46.6 % 01/27/2025 5:32 AM EDT [facility] MCV 95.0 79.0 - 97.0 fL 01/27/2025 5:32 AM EDT [facility] MCH 30.0 26.6 - 33.0 pg 01/27/2025 5:32 AM EDT [facility] MCHC 31.6 31.5 - 35.7 g/dL 01/27/2025 5:32 AM EDT [facility] RDW 13.8 12.3 - 15.4 % 01/27/2025 5:32 AM EDT [facility] RDW-SD 47.9 37.0 - 54.0 fl 01/27/2025 5:32 AM EDT [facility] MPV 9.1 6.0 - 12.0 fL 01/27/2025 5:32 AM EDT [facility] Platelets 226 140 - 450 10*3/mm3 01/27/2025 5:32 AM EDT [facility] Blood Venipuncture / Unknown 01/27/2025 4:54 AM EDT 01/27/2025 5:02 AM EDT Maru Martinez APRN LAB BLOOD ORDERABLES Final Result [facility]
[address] [place] [address], * MRI Brain With Contrast (01/27/2025 1:28 AM EDT) Anatomical Region Laterality Modality Head, Neck N/A Magnetic Resonan ce 01/27/2025 2:00 AM EDT Impressions 01/27/2025 2:05 AM EDT Impression: No pathologic contrast enhancement. 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 Electronically Signed: Jesus Peterson MD 01/27/2025 2:05 AM EDT Workstation ID: [id number] Narrative 01/27/2025 2:05 AM EDT MRI BRAIN W CONTRAST Date of Exam: 01/27/2025 1:27 AM EDT Indication: Changes on MRI. Comparison: MRI from 01/26/2025 Technique: Routine multiplanar/multisequence sequence images of the brain were obtained after the uneventful administration of 8 mL Vueway. Findings: Contrast-enhanced images as supplement to earlier noncontrast exams fail to demonstrate pathologic contrast enhancement. The intracranial vascular structures and meninges have a normal contrast enhancement. 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 Metabolic disorder or nonspecific cerebritis would be included in the differential. Procedure Note Jesus Peterson MD - 01/27/2025 MRI BRAIN W CONTRAST Date of Exam: 01/27/2025 1:27 AM EDT Indication: Changes on MRI. Comparison: MRI from 01/26/2025 Technique: Routine multiplanar/multisequence sequence images of the brainwere obtained after the uneventful administration of 8 mL Vueway. Findings: Contrast-enhanced images as supplement to earlier noncontrast exams failto demonstrate pathologic contrast enhancement. The intracranial vascularstructures and meninges have a normal contrast enhancement. The findingson earlier MRI from yesterday would include posterior reversible encephalopathy syndrome. Metabolicdisorder or nonspecific cerebritis would be included in thedifferential. IMPRESSION: Impression: No pathologic contrast enhancement. The findings on earlier MRI fromyesterday would include posterior reversible encephalopathy syndrome. Electronically Signed: Jesus Peterson MD 01/27/2025 2:05 AM EDT Workstation ID: [id number] Adama Maher MD IMG MRI ORDERABLES Final Result * POC Glucose Once (01/26/2025 5:38 PM EDT) Glucose 91 70 - 130 mg/dL 01/26/2025 5:40 PM EDT [facility] Comment:Serial Number: [id number] Nova Comment 1 Follow unit protocol 01/26/2025 5:40 PM EDT [facility] Blood 01/26/2025 5:38 PM EDT 01/26/2025 5:40 PM EDT Andrew Barkley MD POINT OF CARE TEST ORDERABLE S Final Result Performing Organization Address [facility] de Phone Number [facility]
[address] [place] [address], * POC Glucose Once (01/26/2025 12:19 PM EDT) Glucose 98 70 - 130 mg/dL 01/26/2025 12:22 PM EDT [facility] Comment:Serial Number: [id number]: [id number] Nova Comment 1 Follow unit protocol 01/26/2025 12:22 PM EDT [facility] Blood 01/26/2025 12:1 9 PM EDT 01/26/2025 12:22 PM EDT Andrew Barkley MD POINT OF CARE TEST ORDERABLE S Final Result Performing Organization Address [facility] Co de Phone Number [facility]
[address] [place] [address], * ECHO COMPLETE W/ DOPPLER AND COLOR FLOW (01/26/2025 11:26 AM EDT) LVIDd 4.2 cm LVIDs 2.7 cm IVSd 0.90 cm LVPWd 0.90 cm IVS/LVPW 1.00 cm LV Sys Vol (BSA corrected) 7.1 cm2 LV Alcantar Vol (BSA corrected) 20.2 cm2 LVOT area 3.1 cm2 LVOT diam 2.00 cm EDV(MOD-sp2) 33.9 ml EDV(MOD-sp4) 36.8 ml ESV(MOD-sp2) 11.7 ml ESV(MOD-sp4) 12.9 ml SV(MOD-sp2) 22.2 ml SV(MOD-sp4) 23.9 ml SVi(MOD-SP2) 12.2 ml/m2 SVi(MOD-SP4) 13.1 ml/m2 SVi (LVOT) 44.9 ml/m2 EF(MOD-sp2) 65.5 % EF(MOD-sp4) 64.9 % MV E max tony 82.0 cm/sec MV A max tony 95.3 cm/sec MV E/A 0.86 LA ESV Index (BP) 5.9 ml/m2 Med Peak E' Tony 8.2 cm/sec Lat Peak E' Tony 9.2 cm/sec Avg E/e' ratio 9.43 SV(LVOT) 81.7 ml RV Base 3.7 cm RV Mid 2.8 cm RV Length 6.9 cm RV S' 16.5 cm/sec LA dimension (2D) 2.5 cm LV V1 max 121.5 cm/sec LV V1 max PG 5.9 mmHg LV V1 mean PG 3.3 mmHg LV V1 VTI 26.0 cm Ao pk tony 239.2 cm/sec Ao max PG 22.9 mmHg Ao mean PG 12.5 mmHg Ao V2 VTI 40.7 cm ROXANNE(I,D) 2.01 cm2 Dimensionless Index 0.64 (DI) MV max PG 6.2 mmHg MV mean PG 3.2 mmHg MV V2 VTI 25.1 cm MV P1/2t 57.0 msec MVA(P1/2t) 3.8 cm2 MVA(VTI) 3.3 cm2 MV dec slope 558.9 cm/sec2 PA acc time 0.11 sec Ao root diam 1.90 cm TAPSE (>1.6) 1.60 cm Echo EF Estimated 60.0 % Anatomical Region Laterality Modality Ultrasound Narrative 01/26/2025 8:46 PM EDT Left ventricular systolic function is normal. Estimated left ventricular EF = 60% Left ventricular diastolic function is consistent with (grade I) impaired relaxation. Aortic sclerosis without recurrent aortic stenosis. Trace aortic regurgitation. Trace mitral regurgitation. Trace tricuspid regurgitation with normal RVSP. Saline test results are negative. Left Ventricle Left ventricular systolic function is normal. Estimated left ventricular EF = 60% Normal left ventricular cavity size and wall thickness noted. Left ventricular diastolic function is consistent with (grade I) impaired relaxation. Right Ventricle Normal right ventricular cavity size, wall thickness, systolic function and septal motion noted. Left Atrium Normal left atrial size and volume noted. Saline test results are negative. Right Atrium Normal right atrial cavity size noted. Mitral Valve The mitral valve is grossly normal in structure. Trace mitral valve regurgitation is present. Tricuspid Valve The tricuspid valve is structurally normal with no significant stenosis present. Trace tricuspid valve regurgitation is present. Estimated right ventricular systolic pressure from tricuspid regurgitation is normal (<35 mmHg). Aortic Valve The aortic valve is abnormal in structure. The aortic valve exhibits sclerosis. There is calcification of the aortic valve. The aortic valve appears trileaflet. Trace aortic valve regurgitation is present. No hemodynamically significant aortic valve stenosis is present. Aortic valve area is 2.01 cm2. Peak velocity of the flow distal to the aortic valve is 239.2 cm/s. Aortic valve maximum pressure gradient is 22.9 mmHg. Aortic valve mean pressure gradient is 12.5 mmHg. Aortic valve dimensionless index is 0.64 . Pulmonic Valve The pulmonic valve is structurally normal with no significant stenosis present. There is trace pulmonic valve regurgitation present. Pericardium The pericardium is normal. There is no evidence of pericardial effusion. . Greater Vessels No dilation of the aortic root is present. No dilation of the sinuses of Valsalva is present. Prior Study There is no prior study available for comparison. Rayshawn Hercules PA-C CV ECHO ORDERABLES Final Result * STAT Lactic Acid, Reflex (01/26/2025 10:44 AM EDT) Lactate 1.9 0.5 - 2.0 mmol/L 01/26/2025 11:33 AM EDT [facility] Comment:Falsely depressed re sults may occur on samples drawn from patients receiving N-Acetylcysteine (NAC) or Metamizole. Blood Venipuncture / Unknown 01/26/2025 10:44 AM EDT 01/26/2025 11:00 AM EDT Maru Martinez PRECISION AGRICULTURE SPECIALIST LAB BLOOD ORDERABLES Final Result Performing Organization Address [facility] de Phone Number [facility]
[address] [place] [address], * (ABNORMAL) STAT Lactic Acid, Reflex (01/26/2025 6:51 AM EDT) Lactate 2.2(HH) 0.5 - 2.0 mmol/L 01/26/2025 7:24 AM EDT [facility] Comment:Falsely depressed re sults may occur on samples drawn from patients receiving N-Acetylcysteine (NAC) or Metamizole. Blood Structure of right upper limb / Unknown Venipuncture / Unknown 01/26/2025 6:51 AM EDT 01/26/2025 6:59 AM EDT Maru Martinez PRECISION AGRICULTURE SPECIALIST LAB BLOOD ORDERABLES Final Result Performing Organization Address [facility] de Phone Number [facility]
[address] [place] [address], * (ABNORMAL) Vancomycin, Random (01/26/2025 6:51 AM EDT) Vancomycin Random 42.10(HH) 5.00 - 40.00 mcg/mL 01/26/2025 7:53 AM EDT [facility] Blood Structure of right upper limb / Unknown Venipuncture / Unknown 01/26/2025 6:51 AM EDT 01/26/2025 7:01 AM EDT Narrative [facility] - 01/26/2025 7:53 AM EDT Therapeutic Ranges for Vancomycin Vancomycin Random 5.0-40.0 mcg/mL Vancomycin Trough 5.0-20.0 mcg/mL Vancomycin Peak 20.0-40.0 mcg/mL Aline Tavarez PharmD LAB BLOOD ORDERABLES Final R esult Performing Organization Address City/[facility]/ZIP Co de Phone Number [facility]
[address] [place] [address], * (ABNORMAL) Hemoglobin A1c (01/26/2025 6:51 AM EDT) Hemoglobin A1C 5.67(H) 4.80 - 5.60 % 01/26/2025 8:56 AM EDT [facility] Blood Structure of right upper limb / Unknown Venipuncture / Unknown 01/26/2025 6:51 AM EDT 01/26/2025 7:01 AM EDT Narrative [facility] - 01/26/2025 8:56 AM EDT Hemoglobin A1C Ranges: Increased Risk for Diabetes 5.7% to 6.4% Diabetes >= 6.5% Diabetic Goal < 7.0% Rayshawn Hercules PA-C LAB BLOOD ORDERABLE S Final Result Performing Organization Address City/[facility]/ZIP Co de Phone Number [facility]
[address] [place] [address], * EEG AWAKE OR ASLEEP PORTABLE (01/26/2025 6:30 AM EDT) Impressions NEUROLOGY - 01/26/2025 8:58 AM EDT Diffuse cerebral dysfunction of at least mild degree, nonspecific but most commonly seen due to toxic/metabolic cause No ongoing seizures are present This report is transcribed using the [employer] dictation system. Narrative NEUROLOGY - 01/26/2025 8:58 AM EDT Reason for referral: 74 y.o.female with seizure-like activity Technical Summary: A 19 channel digital EEG was performed using the international 10-20 placement system, including eye leads and EKG leads. Duration: 20 minutes Findings: The patient is resting in bed and appears drowsy. The background shows diffuse 4 to 6 Hz intermixed delta and theta activity. Photic stimulation does not change the background. IV pump artifact is prominent throughout. As a study proceeds, occasional bursts of intermixed slower 3 Hz generalized delta are noted. No focal features or epileptiform activity are seen. Video: Available Technical quality: Good Rhythm strip: Regular, 80 bpm SUMMARY: Mild-moderate generalized slow No focal features or epileptiform activity are seen us Rayshawn Hercules PA-C NEUROLOGY ORDERABLE S Final Result NEUROLOGY * MRI Brain Without Contrast (01/26/2025 5:25 AM EDT) Anatomical Region Laterality Modality Head, Neck N/A Magnetic Resonan ce 01/26/2025 6:16 AM EDT Impressions 01/26/2025 6:37 AM EDT Impression: 1. Study is limited by motion 2. Diffusion weighted imaging demonstrates no acute diffusion restriction abnormality. 3. Increased FLAIR and T2 weighted signal with associated mild sulcal effacement involving predominantly the cortex of the bilateral occipital and parietal lobes with mild anterior extension involving the frontal lobes on the left. Findings are nonspecific and may represent PRES.. Underlying infection/encephalitis, cerebritis as well as metabolic disorders also a consideration. Please correlate clinically. Consider repeat imaging with contrast as clinically indicated. 4. No definite intracranial hemorrhage identified within the limitations of the exam. Electronically Signed: Johann Ramos MD 01/26/2025 6:37 AM EDT Workstation ID: [id number] Narrative 01/26/2025 6:37 AM EDT MRI BRAIN WO CONTRAST Date of Exam: 01/26/2025 4:30 AM EDT Indication: Stroke, follow up Altered mental status, reported suspicion for SAH on OSH CT imaging. Comparison: CT 01/26/2025 and prior Technique: Routine multiplanar/multisequence sequence images of the brain were obtained without contrast administration. Findings: There is motion limitation. No acute diffusion restriction abnormality noted within the limitations of the study. No definite acute intracranial hemorrhage noted within the limitations of the exam. Midline structures of the brain, pituitary and sellar structures and craniocervical junction are grossly unremarkable. Mild increased cortical signal on FLAIR and T2 weighted imaging with associated sulcal effacement. Findings are seen along the vertex of the brain. Midline involving the parietal and frontal lobe on the left and involving the more posterior aspects of the parenchyma on the right. Changes are also noted more posteriorly involving the bilateral parietal and occipital lobes. Major intracranial flow voids are grossly patent. Globes and orbits are grossly unremarkable in appearance. Paranasal sinuses appear grossly clear. Mastoid air cells demonstrate no acute abnormality Procedure Note Johann Ramos MD - 01/26/2025 MRI BRAIN WO CONTRAST Date of Exam: 01/26/2025 4:30 AM EDT Indication: Stroke, follow up Altered mental status, reported suspicion for SAH on OSH CT imaging. Comparison: CT 01/26/2025 and prior Technique: Routine multiplanar/multisequence sequence images of the brainwere obtained without contrast administration. Findings: There is motion limitation. No acute diffusion restriction abnormality noted within the limitations ofthe study. No definite acute intracranial hemorrhage noted within the limitations ofthe exam. Midline structures of the brain, pituitary and sellar structuresand craniocervical junction are grossly unremarkable. Mild increasedcortical signal on FLAIR and T2 weighted imaging with associated sulcal effacement. Findings are seenalong the vertex of the brain. Midline involving the parietal and frontallobe on the left and involving the more posterior aspects of theparenchyma on the right. Changes are also noted more posteriorly involving the bilateral parietal and occipitallobes. Major intracranial flow voids are grossly patent. Globes and orbitsare grossly unremarkable in appearance. Paranasal sinuses appear grosslyclear. Mastoid air cells demonstrate no acute abnormality IMPRESSION: Impression: 1. Study is limited by motion 2. Diffusion weighted imaging demonstrates no acute diffusion restrictionabnormality. 3. Increased FLAIR and T2 weighted signal with associated mild sulcaleffacement involving predominantly the cortex of the bilateral occipitaland parietal lobes with mild anterior extension involving the frontallobes on the left. Findings are nonspecific and may represent PRES.. Underlying infection/encephalitis,cerebritis as well as metabolic disorders also a consideration. Pleasecorrelate clinically. Consider repeat imaging with contrast as clinicallyindicated. 4. No definite intracranial hemorrhage identified within the limitationsof the exam. Electronically Signed: Johann Ramos MD 01/26/2025 6:37 AM EDT Workstation ID: [id number] Rayshawn Hercules PA-C IMG MRI ORDERABLES Final Result * (ABNORMAL) POC Glucose Once (01/26/2025 5:20 AM EDT) Glucose 134(H) 70 - 130 mg/dL 01/26/2025 5:23 AM EDT [facility] Comment:Serial Number: [id number]: [id number] Blood 01/26/2025 5:20 AM EDT 01/26/2025 5:23 AM EDT Rayshawn Baldwin MD POINT OF CARE TEST ORDERABLE S Final Result [facility]
[address] [place] [address], * (ABNORMAL) High Sensitivity Troponin T 1Hr (01/26/2025 3:28 AM EDT) HS Troponin T 22(H) <14 ng/L 01/26/2025 3:57 AM EDT [facility] Troponin T Numeric Delta -1 ng/L 01/26/2025 3:57 AM EDT [facility] Troponin T % Delta -4 Abnormal if >/= 20% 01/26/2025 3:57 AM EDT [facility] Blood Line / Unknown 01/26/2025 3: 28 AM EDT 01/26/2025 3:37 AM EDT Narrative [facility] - 01/26/2025 3:57 AM EDT High Sensitive Troponin T Reference Range: <14.0 ng/L- Negative Female for AMI <22.0 ng/L- Negative Male for AMI >=14 - Abnormal Female indicating possible myocardial injury. >=22 - Abnormal Male indicating possible myocardial injury. Clinicians would have to utilize clinical acumen, EKG, Troponin, and serial changes to determine if it is an Acute Myocardial Infarction or myocardial injury due to an underlying chronic condition. us Maru R Juan PRECISION AGRICULTURE SPECIALIST LAB BLOOD ORDERABLES Final Result [facility]
[address] [place] [address], * ECG 12 Lead QT Measurement (01/26/2025 3:10 AM EDT) QT Interval 340 ms ECG QTC Interval 478 ms ECG 01/26/2025 3:10 AM EDT 01/26/2025 8:10 AM EDT Narrative ECG - 01/26/2025 8:10 AM EDT Test Reason : QT Measurement Blood Pressure : */* mmHG Vent. Rate : 119 BPM Atrial Rate : 119 BPM P-R Int : 140 ms QRS Dur : 70 ms QT Int : 340 ms P-R-T Axes : 80 63 64 degrees QTcB Int : 478 ms Sinus tachycardia Otherwise normal ECG When compared with ECG of 10-Jul-2018 15:21, No significant change was found Confirmed by NEERAJ KHAN MD ([id number]) on 01/26/2025 8:10:43 AM Referred By: Confirmed By: NEERAJ KHAN MD Procedure Note Neeraj Khan MD - 01/26/2025 Test Reason : QT Measurement Blood Pressure : */* mmHG Vent. Rate : 119 BPM Atrial Rate : 119 BPM P-R Int : 140 ms QRS Dur : 70 ms QT Int : 340 ms P-R-T Axes : 80 63 64 degrees QTcB Int : 478 ms Sinus tachycardia Otherwise normal ECG When compared with ECG of 10-Jul-2018 15:21, No significant change was found Confirmed by NEERAJ KHAN MD ([id number]) on 01/26/2025 8:10:43 AM Referred By: Confirmed By: NEERAJ KHAN MD us Maru Martinez PRECISION AGRICULTURE SPECIALIST ECG ORDERABLES Final Resu lt ECG * (ABNORMAL) Urinalysis, Microscopic Only - Indwelling Urethral Catheter (01/26/2025 2:57 AM EDT) RBC, UA 6-10(A) None Seen, 0-2 /HPF 01/26/2025 3:25 AM EDT [facility] WBC, UA 11-20(A) None Seen, 0-2 /HPF 01/26/2025 3:25 AM EDT [facility] Bacteria, UA None Seen None Seen /HPF 01/26/2025 3:25 AM EDT [facility] Squamous Epithelial Cells, UA 0-2 None Seen, 0-2 /HPF 01/26/2025 3:25 AM EDT [facility] Hyaline Casts, UA None Seen None Seen /LPF 01/26/2025 3:25 AM EDT [facility] Methodology Automated Microscopy 01/26/2025 3:25 AM EDT [facility] Urine (Indwelling Urethral Catheter) Collection / Unknown 01/26/2025 2:57 AM EDT 01/26/2025 3:13 AM EDT us Maru Martinez PRECISION AGRICULTURE SPECIALIST URINE ORDERABLES Final Res ult Performing Organization Address City/[facility]/ZIP Co de Phone Number [facility]
[address] [place] [address], * Fentanyl, Urine - Indwelling Urethral Catheter (01/26/2025 2:57 AM EDT) Fentanyl, Urine Negative Negative 01/26/2025 3:40 AM EDT [facility] Urine (Indwelling Urethral Catheter) Collection / Unknown 01/26/2025 2:57 AM EDT 01/26/2025 3:13 AM EDT Narrative [facility] - 01/26/2025 3:40 AM EDT Negative Threshold: Fentanyl 5 ng/mL The normal value for the drug tested is negative. This report includes final unconfirmed screening results to be used for medical treatment purposes only. Unconfirmed results must not be used for non-medical purposes such as employment or legal testing. Clinical consideration should be applied to any drug of abuse test, particularly when unconfirmed results are used. us Maru Martinez PRECISION AGRICULTURE SPECIALIST URINE ORDERABLES Final Res ult [facility]
[address] [place] [address], * (ABNORMAL) Urine Drug Screen - Indwelling Urethral Catheter (01/26/2025 2:57 AM EDT) THC, Screen, Urine Negative Negative 2024 3:27 AM EDT [facility] Phencyclidine (PCP), Urine Negative Negative 01/26/2025 3:27 AM EDT [facility] Cocaine Screen, Urine Negative Negative 01/26/2025 3:27 AM EDT [facility] Methamphetamine, Ur Negative Negative 01/26/2025 3:27 AM EDT [facility] Opiate Screen Negative Negative 01/26/2025 3:27 AM EDT [facility] Amphetamine Screen, Urine Negative Negative 01/26/2025 3:27 AM EDT [facility] Benzodiazepine Screen, Urine Negative Negative 01/26/2025 3:27 AM EDT [facility] Tricyclic Antidepressants Screen Positive(A) Negative 01/26/2025 3:27 AM EDT [facility] Methadone Screen, Urine Negative Negative 01/26/2025 3:27 AM EDT [facility] Barbiturates Screen, Urine Negative Negative 01/26/2025 3:27 AM EDT [facility] Oxycodone Screen, Urine Positive(A) Negative 01/26/2025 3:[facility] Buprenorphine, Screen, Urine Negative Negative 01/26/2025 3:27 AM EDT [facility] Urine (Indwelling Urethral Catheter) Collection / Unknown 01/26/2025 2:57 AM EDT 01/26/2025 3:13 AM EDT Narrative [facility] - 01/26/2025 3:27 AM EDT Cutoff For Drugs Screened: Amphetamines 500 ng/ml Barbiturates 200 ng/ml Benzodiazepines 150 ng/ml Cocaine 150 ng/ml Methadone 200 ng/ml Opiates 100 ng/ml Phencyclidine 25 ng/ml THC 50 ng/ml Methamphetamine 500 ng/ml Tricyclic Antidepressants 300 ng/ml Oxycodone 100 ng/ml Buprenorphine 10 ng/ml The normal value for all drugs tested is negative. This report includes unconfirmed screening results, with the cutoff values listed, to be used for medical treatment purposes only. Unconfirmed results must not be used for non-medical purposes such as employment or legal testing. Clinical consideration should be applied to any drug of abuse test, particularly when unconfirmed results are used. us Maru Martinez PRECISION AGRICULTURE SPECIALIST URINE ORDERABLES Final Res ult [facility]
[address] [place] [address], * (ABNORMAL) Urinalysis With Microscopic If Indicated (No Culture) - Indwelling Urethral Catheter (01/26/2025 2:57 AM EDT) Color, UA Yellow Yellow, Straw 01/26/2025 3:25 AM EDT [facility] Appearance, UA Clear Clear 01/26/2025 3:25 AM EDT [facility] pH, UA 5.5 5.0 - 8.0 01/26/2025 3:25 AM EDT [facility] Specific [place], UA >1.030(H) 1.005 - 1.030 01/26/2025 3:25 AM EDT [facility] Glucose, UA Negative Negative 01/26/2025 3:25 AM EDT [facility] Ketones, UA Negative Negative 01/26/2025 3:25 AM EDT [facility] Bilirubin, UA Negative Negative 01/26/2025 3:25 AM EDT [facility] Blood, UA Moderate (2+)(A) Negative 01/26/2025 3:25 AM EDT [facility] Protein, UA Trace(A) Negative 01/26/2025 3:25 AM EDT [facility] Leuk Esterase, UA Small (1+)(A) Negative 01/26/2025 3:25 AM EDT [facility] Nitrite, UA Negative Negative 01/26/2025 3:25 AM EDT [facility] Urobilinogen, UA 0.2 E.U./dL 0.2 - 1.0 E.U./dL 01/26/2025 3:25 AM EDT [facility] Urine (Indwelling Urethral Catheter) Collection / Unknown 01/26/2025 2:57 AM EDT 01/26/2025 3:13 AM EDT us Maru Martinez PRECISION AGRICULTURE SPECIALIST URINE ORDERABLES Final Res ult Performing Organization Address City/[facility]/ZIP Co de Phone Number [facility]
[address] [place] [address], * (ABNORMAL) POC Glucose Once (01/26/2025 2:38 AM EDT) Glucose 150(H) 70 - 130 mg/dL 01/26/2025 5:06 AM EDT [facility] Comment:Serial Number: [id number] Blood 01/26/2025 2:38 AM EDT 01/26/2025 5:06 AM EDT us Rayshawn aBldwin MD POINT OF CARE TEST ORDERABLE S Final Result [facility]
[address] [place] [address], * LSAC Slide Creation (01/26/2025 2:09 AM EDT) Blood Line / Unknown 01/26/2025 2: 09 AM EDT 01/26/2025 2:20 AM EDT Maru Martinez PRECISION AGRICULTURE SPECIALIST LAB BLOOD ORDER ONLY Final Result [facility]
[address] [place] [address], * (ABNORMAL) CBC Auto Differential (01/26/2025 2:09 AM EDT) WBC 18.88(H) 3.40 - 10.80 10*3/mm3 01/26/2025 2:48 AM EDT [facility] RBC 3.98 3.77 - 5.28 10*6/mm3 01/26/2025 2:48 AM EDT [facility] Hemoglobin 11.6(L) 12.0 - 15.9 g/dL 01/26/2025 2:48 AM EDT [facility] Hematocrit 35.6 34.0 - 46.6 % 01/26/2025 2:48 AM EDT [facility] MCV 89.4 79.0 - 97.0 fL 01/26/2025 2:48 AM EDT [facility] MCH 29.1 26.6 - 33.0 pg 01/26/2025 2:48 AM EDT [facility] MCHC 32.6 31.5 - 35.7 g/dL 01/26/2025 2:48 AM EDT [facility] RDW 13.6 12.3 - 15.4 % 01/26/2025 2:48 AM EDT [facility] RDW-SD 45.1 37.0 - 54.0 fl 01/26/2025 2:48 AM EDT [facility] MPV 9.4 6.0 - 12.0 fL 01/26/2025 2:48 AM EDT [facility] Platelets 411 140 - 450 10*3/mm3 01/26/2025 2:48 AM EDT [facility] Blood Line / Unknown 01/26/2025 2: 09 AM EDT 01/26/2025 2:20 AM EDT Maru Martinez PRECISION AGRICULTURE SPECIALIST LAB BLOOD ORDERABLES Final Result [facility]
[address] [place] [address], * (ABNORMAL) Manual Differential (01/26/2025 2:09 AM EDT) Neutrophil % 81.0(H) 42.7 - 76.0 % 01/26/2025 2:48 AM EDT [facility] Lymphocyte % 9.0(L) 19.6 - 45.3 % 01/26/2025 2:48 AM EDT [facility] Monocyte % 3.0(L) 5.0 - 12.0 % 01/26/2025 2:48 AM EDT [facility] Eosinophil % 0.0(L) 0.3 - 6.2 % 01/26/2025 2:48 AM EDT [facility] Basophil % 0.0 0.0 - 1.5 % 01/26/2025 2:48 AM EDT [facility] Bands % 5.0 0.0 - 5.0 % 01/26/2025 2:48 AM EDT [facility] Atypical Lymphocyte % 2.0 0.0 - 5.0 % 01/26/2025 2:48 AM EDT [facility] Neutrophils Absolute 16.24(H) 1.70 - 7.00 10*3/mm3 01/26/2025 2:48 AM EDT [facility] Lymphocytes Absolute 2.08 0.70 - 3.10 10*3/mm3 01/26/2025 2:48 AM EDT [facility] Monocytes Absolute 0.57 0.10 - 0.90 10*3/mm3 01/26/2025 2:48 AM EDT [facility] Eosinophils Absolute 0.00 0.00 - 0.40 10*3/mm3 01/26/2025 2:48 AM EDT [facility] Basophils Absolute 0.00 0.00 - 0.20 10*3/mm3 01/26/2025 2:48 AM EDT [facility] RBC Morphology Normal Normal 01/26/2025 2:48 AM EDT [facility] WBC Morphology Normal Normal 01/26/2025 2:48 AM EDT [facility] Platelet Morphology Normal Normal 01/26/2025 2:48 AM EDT [facility] Blood Line / Unknown 01/26/2025 2: 09 AM EDT 01/26/2025 2:20 AM EDT Maru Martinez PRECISION AGRICULTURE SPECIALIST LAB BLOOD ORDERABLES Final Result [facility]
[address] [place] [address], * TSH Rfx On Abnormal To Free T4 (01/26/2025 2:09 AM EDT) [facility] TSH 1.430 0.270 - 4.200 uIU/mL 01/26/2025 2:50 AM EDT [facility] Blood Line / Unknown 01/26/2025 2: 09 AM EDT 01/26/2025 2:20 AM EDT Maru Martinez PRECISION AGRICULTURE SPECIALIST LAB BLOOD ORDERABLES Final Result [facility]
[address] [place] [address], [place] [phone] * (ABNORMAL) High Sensitivity Troponin T (01/26/2025 2:09 AM EDT) [facility] HS Troponin T 23(H) <14 ng/L 01/26/2025 2:50 AM EDT [facility] Blood Line / Unknown 01/26/2025 2: 09 AM EDT 01/26/2025 2:20 AM EDT [facility] - 01/26/2025 2:50 AM EDT High Sensitive Troponin T Reference Range: <14.0 ng/L- Negative Female for AMI <22.0 ng/L- Negative Male for AMI >=14 - Abnormal Female indicating possible myocardial injury. >=22 - Abnormal Male indicating possible myocardial injury. Clinicians would have to utilize clinical acumen, EKG, Troponin, and serial changes to determine if it is an Acute Myocardial Infarction or myocardial injury due to an underlying chronic condition. Maru Martinez APRN LAB BLOOD ORDERABLES Final Result Performing Organization Address City/[facility]/ZIP Co de Phone Number [facility]
[address] [place] [address], * Protime-INR (01/26/2025 2:09 AM EDT) [facility] Protime 13.9 12.2 - 15.3 Seconds 01/26/2025 2:56 AM EDT [facility] INR 1.01 0.89 - 1.12 01/26/2025 2:56 AM EDT [facility] Blood Line / Unknown 01/26/2025 2: 09 AM EDT 01/26/2025 2:20 AM EDT Maru Martinez PRECISION AGRICULTURE SPECIALIST LAB BLOOD ORDERABLES Final Result [facility]
[address] [place] [address], * Procalcitonin (01/26/2025 2:09 AM EDT) [facility] Procalcitonin 0.15 0.00 - 0.25 ng/mL 01/26/2025 2:50 AM EDT [facility] Blood Line / Unknown 01/26/2025 2: 09 AM EDT 01/26/2025 2:20 AM EDT Narrative [facility] - 01/26/2025 2:50 AM EDT As a Marker for Sepsis (Non-Neonates): 1. <0.5 ng/mL represents a low risk of severe sepsis and/or septic shock. 2. >2 ng/mL represents a high risk of severe sepsis and/or septic shock. As a Marker for Lower Respiratory Tract Infections that require antibiotic therapy: PCT on Admission Antibiotic Therapy 6-12 Hrs later >0.5 Strongly Recommended >0.25 - <0.5 Recommended 0.1 - 0.25 Discouraged Remeasure/reassess PCT <0.1 Strongly Discouraged Remeasure/reassess PCT As 28 day mortality risk marker: Change in Procalcitonin Result (>80% or <=80%) if Day 0 (or Day 1) and Day 4 values are available. Refer to http://www.leggvl-cdv-vowjpnybtv.com Change in PCT <=80% A decrease of PCT levels below or equal to 80% defines a positive change in PCT test result representing a higher risk for 28-day all-cause mortality of patients diagnosed with severe sepsis for septic shock. Change in PCT >80% A decrease of PCT levels of more than 80% defines a negative change in PCT result representing a lower risk for 28-day all-cause mortality of patients diagnosed with severe sepsis or septic shock. us Maru Martinez APRN LAB BLOOD ORDERABLES Final Result [facility]
[address] [place] [address], * Phosphorus (01/26/2025 2:09 AM EDT) Phosphorus 3.6 2.5 - 4.5 mg/dL 01/26/2025 2:50 AM EDT [facility] Blood Line / Unknown 01/26/2025 2: 09 AM EDT 01/26/2025 2:20 AM EDT Maru Martinez PRECISION AGRICULTURE SPECIALIST LAB BLOOD ORDERABLES Final Result [facility]
[address] [place] [address], * Magnesium (01/26/2025 2:09 AM EDT) Pathologist [facility] Magnesium 2.1 1.6 - 2.4 mg/dL 01/26/2025 2:50 AM EDT [facility] Blood Line / Unknown 01/26/2025 2: 09 AM EDT 01/26/2025 2:20 AM EDT Maru Martinez APRN LAB BLOOD ORDERABLES Final Result [facility]
[address] [place] [address], * (ABNORMAL) Lipid Panel (01/26/2025 2:09 AM EDT) Total Cholesterol 209(H) 0 - 200 mg/dL 01/26/2025 2:50 AM EDT [facility] Triglycerides 149 0 - 150 mg/dL 01/26/2025 2:50 AM EDT [facility] HDL Cholesterol 70(H) 40 - 60 mg/dL 01/26/2025 2:50 AM EDT [facility] LDL Cholesterol 113(H) 0 - 100 mg/dL 01/26/2025 2:50 AM EDT [facility] VLDL Cholesterol 26 5 - 40 mg/dL 01/26/2025 2:50 AM EDT [facility] LDL/HDL Ratio 1.56 01/26/2025 2:50 AM EDT [facility] Blood Line / Unknown 01/26/2025 2: 09 AM EDT 01/26/2025 2:20 AM EDT Narrative [facility] - 01/26/2025 2:50 AM EDT Cholesterol Reference Ranges (U.S. Department of Health and Human Services ATP III Classifications) Desirable <200 mg/dL Borderline High 200-239 mg/dL High Risk >240 mg/dL Triglyceride Reference Ranges (U.S. Department of Health and Human Services ATP III Classifications) Normal <150 mg/dL Borderline High 150-199 mg/dL High 200-499 mg/dL Very High >500 mg/dL HDL Reference Ranges (U.S. Department of Health and Human Services ATP III Classifications) Low <40 mg/dl (major risk factor for CHD) High >60 mg/dl ('negative' risk factor for CHD) LDL Reference Ranges (U.S. Department of Health and Human Services ATP III Classifications) Optimal <100 mg/dL Near Optimal 100-129 mg/dL Borderline High 130-159 mg/dL High 160-189 mg/dL Very High >189 mg/dL LDL is calculated using the NIH LDL-C calculation. Maru Martinez PRECISION AGRICULTURE SPECIALIST LAB BLOOD ORDERABLES Final Result [facility]
[address] [place] [address], * Lipase (01/26/2025 2:09 AM EDT) Lipase 20 13 - 60 U/L 01/26/2025 2:50 AM EDT [facility] Blood Line / Unknown 01/26/2025 2: 09 AM EDT 01/26/2025 2:20 AM EDT Maru Martinez PRECISION AGRICULTURE SPECIALIST LAB BLOOD ORDERABLES Final Result [facility]
[address] [place] [address], [place] [phone] * (ABNORMAL) Lactic Acid, Plasma (01/26/2025 2:09 AM EDT) Pathologist [facility] Lactate 2.7(HH) 0.5 - 2.0 mmol/L 01/26/2025 2:45 AM EDT [facility] Comment:Falsely depressed re sults may occur on samples drawn from patients receiving N-Acetylcysteine (NAC) or Metamizole. Blood Line / Unknown 01/26/2025 2: 09 AM EDT 01/26/2025 2:20 AM EDT Maru Martinez PRECISION AGRICULTURE SPECIALIST LAB BLOOD ORDERABLES Final Result [facility]
[address] [place] [address], * (ABNORMAL) Comprehensive Metabolic Panel (01/26/2025 2:09 AM EDT) Pathologist [facility] Glucose 154(H) 65 - 99 mg/dL 01/26/2025 2:50 AM EDT [facility] BUN 20.1 8.0 - 23.0 mg/dL 01/26/2025 2:50 AM EDT [facility] Creatinine 1.30(H) 0.57 - 1.00 mg/dL 01/26/2025 2:50 AM EDT [facility] Sodium 142 136 - 145 mmol/L 01/26/2025 2:50 AM EDT [facility] Potassium 3.9 3.5 - 5.2 mmol/L 01/26/2025 2:50 AM EDT [facility] Chloride 107 98 - 107 mmol/L 01/26/2025 2:50 AM EDT [facility] CO2 21.1(L) 22.0 - 29.0 mmol/L 01/26/2025 2:50 AM EDT [facility] Calcium 9.0 8.6 - 10.5 mg/dL 01/26/2025 2:50 AM EDT [facility] Total Protein 6.9 6.0 - 8.5 g/dL 01/26/2025 2:50 AM EDT [facility] Albumin 4.0 3.5 - 5.2 g/dL 01/26/2025 2:50 AM EDT [facility] ALT (SGPT) 19 1 - 33 U/L 01/26/2025 2:50 AM EDT [facility] AST (SGOT) 30 1 - 32 U/L 01/26/2025 2:50 AM T [facility] Alkaline Phosphatase 120(H) 39 - 117 U/L 01/26/2025 2:50 AM EDT [facility] Total Bilirubin 0.4 0.0 - 1.2 mg/dL 01/26/2025 2:50 AM EDT [facility] Globulin 2.9 gm/dL 01/26/2025 2:50 AM [facility] Comment:Calculated Result A/G Ratio 1.4 g/dL 01/26/2025 2:50 AM [facility] BUN/Creatinine Ratio 15.5 7.0 - 25.0 01/26/2025 2:50 AM [facility] Anion Gap 13.9 5.0 - 15.0 mmol/L 01/26/2025 2:50 AM [facility] eGFR 43.5(L) >60.0 mL/min/1.7 3 01/26/2025 2:50 AM [facility] Blood Line / Unknown 01/26/2025 2: 09 AM EDT 01/26/2025 2:20 AM EDT [facility] - 01/26/2025 2:50 AM EDT GFR Categories in Chronic Kidney Disease (CKD) GFR Category GFR (mL/min/1.73) Interpretation G1 90 or greater Normal or high (1) G2 60-89 Mild decrease (1) G3a 45-59 Mild to moderate decrease G3b 30-44 Moderate to severe decrease G4 15-29 Severe decrease G5 14 or less Kidney failure (1)In the absence of evidence of kidney disease, neither GFR category G1 or G2 fulfill the criteria for CKD. eGFR calculation 2021 CKD-EPI creatinine equation, which does not include race as a factor Maru Martinez PRECISION AGRICULTURE SPECIALIST LAB BLOOD ORDERABLES Final Result Performing Organization Address City/[facility]/ZIP Co de Phone Number [facility]
[address] [place] [address], * (ABNORMAL) CK (01/26/2025 2:09 AM EDT) Creatine Kinase 206(H) 20 - 180 U/L 01/26/2025 2:50 AM EDT [facility] Blood Line / Unknown 01/26/2025 2: 09 AM EDT 01/26/2025 2:20 AM EDT Maru Martinez PRECISION AGRICULTURE SPECIALIST LAB BLOOD ORDERABLES Final Result Performing Organization Address [facility] de Phone Number [facility]
[address] [place] [address], * aPTT (01/26/2025 2:09 AM EDT) Pathologist [facility] PTT 26.2 22.0 - 39.0 seconds 01/26/2025 2:56 AM EDT [facility] Blood Line / Unknown 01/26/2025 2: 09 AM EDT 01/26/2025 2:20 AM EDT Narrative [facility] - 01/26/2025 2:56 AM EDT PTT = The equivalent PTT values for the therapeutic range of heparin levels at 0.3 to 0.5 U/ml are 60 to 70 seconds. Maru Whipple Juan PRECISION AGRICULTURE SPECIALIST LAB BLOOD ORDERABLES Final Result Performing Organization Address [facility] Co de Phone Number [facility]
[address] [place] [address], * Calcium, Ionized (01/26/2025 2:09 AM EDT) Ionized Calcium 1.15 1.15 - 1.30 mmol/L 01/26/2025 2:22 AM EDT [facility] Blood Line / Unknown 01/26/2025 2: 09 AM EDT 01/26/2025 2:20 AM EDT Maru Martinez APRN LAB BLOOD ORDERABLES Final Result [facility]
[address] [place] [address], [place] [phone] * Blood Culture - Blood, Blood, Port (01/26/2025 2:00 AM EDT) Blood Culture No growth at 5 days 02/04/2025 12:48 PM EST [facility] Blood (Blood, Port) Port / Unknown 01/26/2025 2:00 AM EDT 01/26/2025 3:10 AM EDT Maru Martinez APRN MICROBIOLOGY - GENERAL ORD ERABLES Edited Result - Final Performing Organization Address City/[facility]/ZIP Co de Phone Number [facility]
[address] [place] [address], [place] [phone] * Blood Culture - Blood, Arm, Right (01/26/2025 2:00 AM EDT) Blood Culture No growth at 5 days 02/04/2025 12:48 PM EST [facility] Blood Structure of right upper limb / Unknown Venipuncture / Unknown 01/26/2025 2:00 AM EDT 01/26/2025 3:09 AM EDT Maru Martinez APRN MICROBIOLOGY - GENERAL ORD ERABLES Edited Result - Final [facility]
[address] [place] [address], [place] [phone] * CT Angiogram Head w AI Analysis of LVO (01/26/2025 1:31 AM EDT) Anatomical Region Laterality Modality Head, Vascular N/A Computed Tomogra phy 01/26/2025 1:48 AM EDT Impressions 01/26/2025 1:54 AM EDT Impression: Significantly limited exam due to motion artifact. The neck vasculature is not adequately evaluated. The intracranial vasculature is normal. There is no evidence of large vessel occlusion. Electronically Signed: Jesus Peterson MD 01/26/2025 1:54 AM EDT Workstation ID: [id number] Narrative 01/26/2025 1:[address] ANGIOGRAM NECK, CT ANGIOGRAM HEAD W AI ANALYSIS OF LVO Date of Exam: 01/26/2025 1:15 AM EDT Indication: AMS, poss. SAH. Comparison: None available. Technique: CTA of the head and neck neck was performed after the uneventful intravenous administration of iodinated contrast. Reconstructed coronal and sagittal images were also obtained. In addition, a 3-D volume rendered image was created for interpretation. Automated exposure control and iterative reconstruction methods were used. Findings: This exam is significantly limited by motion artifact. The neck vasculature is not adequately evaluated. The proximal great vessels and aortic arch appear unremarkable. The proximal and mid portions of the common carotid arteries appear normal. The mid portions of the internal carotid arteries and the carotid bifurcation are suboptimally evaluated. The distal internal carotid arteries are widely patent. There is a normal appearance of the intracranial vasculature with no evidence of stenosis or aneurysm. There is no evidence of large vessel occlusion. Procedure Note Jesus Peterson MD - 01/26/2025 CT ANGIOGRAM NECK, CT ANGIOGRAM HEAD W AI ANALYSIS OF LVO Date of Exam: 01/26/2025 1:15 AM EDT Indication: AMS, poss. SAH. Comparison: None available. Technique: CTA of the head and neck neck was performed after theuneventful intravenous administration of iodinated contrast.Reconstructed coronal and sagittal images were also obtained. In addition,a 3-D volume rendered image was created for interpretation. Automated exposure control and iterative reconstructionmethods were used. Findings: This exam is significantly limited by motion artifact. The neckvasculature is not adequately evaluated. The proximal great vessels andaortic arch appear unremarkable. The proximal and mid portions of thecommon carotid arteries appear normal. The mid portions of the internal carotid arteries and the carotid bifurcation aresuboptimally evaluated. The distal internal carotid arteries are widely patent. There is a normalappearance of the intracranial vasculature with no evidence of stenosis oraneurysm. There is no evidence of large vessel occlusion. IMPRESSION: Impression: Significantly limited exam due to motion artifact. The neck vasculature isnot adequately evaluated. The intracranial vasculature is normal. There isno evidence of large vessel occlusion. Electronically Signed: Jesus Peterson MD 01/26/2025 1:54 AM EDT Workstation ID: [id number] Maru Martinez APRN IMG CT ORDERABLES Final Re sult * CT Angiogram Neck (01/26/2025 1:31 AM EDT) Anatomical Region Laterality Modality Neck, Vascular N/A Computed Tomogra phy 01/26/2025 1:48 AM EDT Impressions 01/26/2025 1:54 AM EDT Impression: Significantly limited exam due to motion artifact. The neck vasculature is not adequately evaluated. The intracranial vasculature is normal. There is no evidence of large vessel occlusion. Electronically Signed: Jesus Peterson MD 01/26/2025 1:54 AM EDT Workstation ID: [id number] Narrative 01/26/2025 1:[address] ANGIOGRAM NECK, CT ANGIOGRAM HEAD W AI ANALYSIS OF LVO Date of Exam: 01/26/2025 1:15 AM EDT Indication: AMS, poss. SAH. Comparison: None available. Technique: CTA of the head and neck neck was performed after the uneventful intravenous administration of iodinated contrast. Reconstructed coronal and sagittal images were also obtained. In addition, a 3-D volume rendered image was created for interpretation. Automated exposure control and iterative reconstruction methods were used. Findings: This exam is significantly limited by motion artifact. The neck vasculature is not adequately evaluated. The proximal great vessels and aortic arch appear unremarkable. The proximal and mid portions of the common carotid arteries appear normal. The mid portions of the internal carotid arteries and the carotid bifurcation are suboptimally evaluated. The distal internal carotid arteries are widely patent. There is a normal appearance of the intracranial vasculature with no evidence of stenosis or aneurysm. There is no evidence of large vessel occlusion. Procedure Note Jesus Peterson MD - 01/26/2025 CT ANGIOGRAM NECK, CT ANGIOGRAM HEAD W AI ANALYSIS OF LVO Date of Exam: 01/26/2025 1:15 AM EDT Indication: AMS, poss. SAH. Comparison: None available. Technique: CTA of the head and neck neck was performed after theuneventful intravenous administration of iodinated contrast.Reconstructed coronal and sagittal images were also obtained. In addition,a 3-D volume rendered image was created for interpretation. Automated exposure control and iterative reconstructionmethods were used. Findings: This exam is significantly limited by motion artifact. The neckvasculature is not adequately evaluated. The proximal great vessels andaortic arch appear unremarkable. The proximal and mid portions of thecommon carotid arteries appear normal. The mid portions of the internal carotid arteries and the carotid bifurcation aresuboptimally evaluated. The distal internal carotid arteries are widely patent. There is a normalappearance of the intracranial vasculature with no evidence of stenosis oraneurysm. There is no evidence of large vessel occlusion. IMPRESSION: Impression: Significantly limited exam due to motion artifact. The neck vasculature isnot adequately evaluated. The intracranial vasculature is normal. There isno evidence of large vessel occlusion. Electronically Signed: Jesus Peterson MD 01/26/2025 1:54 AM EDT Workstation ID: [id number] Maru Martinez APRN IMG CT ORDERABLES Final Re sult * CT Head Without Contrast (01/26/2025 1:31 AM EDT) Anatomical Region Laterality Modality Head N/A Computed Tomogra phy 01/26/2025 1:45 AM EDT Impressions 01/26/2025 1:46 AM EDT Impression: No acute intracranial abnormality. Electronically Signed: Jesus Peterson MD 01/26/2025 1:46 AM EDT Workstation ID: [id number] Narrative 01/26/2025 1:[address] HEAD WO CONTRAST Date of Exam: 01/26/2025 1:15 AM EDT Indication: AMS, poss. SAH. Comparison: None available. Technique: Axial CT images were obtained of the head without contrast administration. Automated exposure control and iterative construction methods were used. Findings: There is no evidence of hemorrhage. There is no mass effect or midline shift. There is no extracerebral collection. Ventricles are normal in size and configuration for patient's stated age. Posterior fossa is within normal limits. Calvarium and skull base appear intact. Visualized sinuses show no air fluid levels. Visualized orbits are unremarkable. Procedure Note Jesus Peterson MD - 01/26/2025 CT HEAD WO CONTRAST Date of Exam: 01/26/2025 1:15 AM EDT Indication: AMS, poss. SAH. Comparison: None available. Technique: Axial CT images were obtained of the head without contrastadministration. Automated exposure control and iterative constructionmethods were used. Findings: There is no evidence of hemorrhage. There is no mass effect or midlineshift. There is no extracerebral collection. Ventricles are normal in size and configuration for patient's stated age. Posterior fossa is within normal limits. Calvarium and skull base appear intact. Visualized sinuses show no airfluid levels. Visualized orbits are unremarkable. IMPRESSION: Impression: No acute intracranial abnormality. Electronically Signed: Jesus Peterson MD 01/26/2025 1:46 AM EDT Workstation ID: [id number] Maru Martinez PRECISION AGRICULTURE SPECIALIST IMG CT ORDERABLES Final Re sult * LABS SCANNED (01/26/2025) Result [facility] LAB BLOOD ORDERABLES Final Re sult * IMAGING SCANNED (01/26/2025) Anatomical Region Laterality Modality Radiographic Tammy ging [facility] IMG DIAGNOSTIC IMAGING ORDERA BLES Final Result * IMAGING SCANNED (01/26/2025) Anatomical Region Laterality Modality Radiographic Tammy ging Result [facility] IMG DIAGNOSTIC IMAGING ORDERA BLES Final Result * IMAGING SCANNED (01/26/2025) Anatomical Region Laterality Modality Radiographic [facility] BL[facility] Final Result * IMAGING SCANNED (01/26/2025) Anatomical Region Laterality Modality Radiographic Tammy ging Result [facility] DIAGNOSTIC IMAGING ORDERA BLES Final Result * IMAGING SCANNED (01/26/2025) Anatomical Region Laterality Modality Radiographic Tammy ging [facility]A BLES Final Result * IMAGING SCANNED (01/26/2025) Anatomical Region Laterality Modality Radiographic Tammy ging Result [facility] ORDERA BLES Final Result * IMAGING SCANNED (01/26/2025) Anatomical Region Laterality Modality Radiographic Tammy ging [facility] ORDERA BLES Final Result * CT Outside Head (01/25/2025 12:30 AM EDT) Narrative SYSTEMGENERATED, DOCUMENTATION - 01/26/2025 2:39 AM EDT This procedure was auto-finalized with no dictation required. us [employer] IMG CT ORDERABLES Final Re sult * CT Outside Spine (01/25/2025 12:25 AM EDT) Narrative SYSTEMGENERATED, DOCUMENTATION - 01/26/2025 2:39 AM EDT This procedure was auto-finalized with no dictation required. us [employer] IMG CT ORDERABLES Final Re sult * CT Outside Spine (01/25/2025 12:20 AM EDT) Narrative SYSTEMGENERATED, DOCUMENTATION - 01/26/2025 2:39 AM EDT This procedure was auto-finalized with no dictation required. [facility] IMG CT ORDERABLES Final Re sult * CT Outside Spine (01/25/2025 12:15 AM EDT) Narrative SYSTEMGENERATED, DOCUMENTATION - 01/26/2025 2:38 AM EDT This procedure was auto-finalized with no dictation required. [facility] IMG CT ORDERABLES Final Re sult * CT Outside Abd/Pelvis (01/25/2025 12:10 AM EDT) Narrative SYSTEMGENERATED, DOCUMENTATION - 01/26/2025 2:38 AM EDT This procedure was auto-finalized with no dictation required. [facility] IMG CT ORDERABLES Final Re sult * CT Outside Abd/Pelvis (01/25/2025 12:05 AM EDT) Narrative SYSTEMGENERATED, DOCUMENTATION - 01/26/2025 2:37 AM EDT This procedure was auto-finalized with no dictation required. [facility] IMG CT ORDERABLES Final Re sult * CT Outside Chest (01/25/2025 12:00 AM EDT) Narrative SYSTEMGENERATED, DOCUMENTATION - 01/26/2025 2:37 AM EDT This procedure was auto-finalized with no dictation required. [facility] [employer] IMG CT ORDERABLES Final Re sult documented in this encounter Visit Diagnoses Diagnosis Cognitive communication deficit- Primary PRES (posterior reversible encephalopathy syndrome) Irritable bowel syndrome with diarrhea Irritable bowel syndrome PRES (posterior reversible encephalopathy syndrome) documented in this encounter Admitting Diagnoses Diagnosis SAH (subarachnoid hemorrhage) Subarachnoid hemorrhage documented in this encounter Administered Medications Inactive Administered Medications - up to 3 most recent administrations Medication Order MAR Action Action Date Dose Rate Site acyclovir (ZOVIRAX) 800 mg in sodium chloride 0.9 % 250 mL IVPB 800 mg (rounded from 814 mg = 10 mg/kg 81.4 kg), Intravenous, Administer over 60 Minutes, Every 8 Hours, First dose on Sun01/26/25 at 0500, For 5 days, Do not refrigerate., 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 New Bag 01/26/2025 5:39 AM EDT 800 mg acyclovir (ZOVIRAX) 800 mg in sodium chloride 0.9 % 250 mL IVPB 800 mg (rounded from 814 mg = 10 mg/kg 81.4 kg), Intravenous, Administer over 60 Minutes, Every 12 Hours, First dose (after last modification) on Sun01/26/25 at 1700, For 4 days, Do not refrigerate., 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 New Bag 01/26/2025 6:20 PM EDT 800 mg acyclovir (ZOVIRAX) capsule 400 mg 400 mg, Oral, 2 Times Daily, First dose on Sun01/27/25 at 0900, For 7 days, Indications: ProphylaxisIndications:Prophylaxis Given 01/29/2025 8:32 AM EDT 400 mg Given 01/28/2025 9:13 PM EDT 400 mg Given 01/28/2025 9:03 AM EDT 400 mg amitriptyline (ELAVIL) tablet 50 mg 50 mg, Oral, Nightly, First dose (after last modification) on Sun01/26/25 at 2100 Given 01/28/2025 9:14 PM EDT 50 mg Given 01/27/2025 8:18 PM EDT 50 mg Given 01/26/2025 8:55 PM EDT 50 mg amLODIPine (NORVASC) tablet 10 mg 10 mg, Oral, Every 24 Hours Scheduled, First dose (after last modification) on Sun01/28/25 at 0900, Hold for SBP less than 100, DBP less than 60. Caution: Look alike/sound alike drug alert. Avoid grapefruit juice. Given 01/29/2025 8:33 AM EDT 10 mg Given 01/28/2025 9:04 AM EDT 10 mg amLODIPine (NORVASC) tablet 5 mg 5 mg, Oral, Every 24 Hours Scheduled, First dose on Sun01/27/25 at 1045, Hold for SBP less than 100, DBP less than 60. Caution: Look alike/sound alike drug alert. Avoid grapefruit juice. Given 01/27/2025 11:07 AM EDT 5 mg amLODIPine (NORVASC) tablet 5 mg 5 mg, Oral, Once, On Sun01/27/25 at 1845, For 1 dose, Hold for SBP less than 100, DBP less than 60. Caution: Look alike/sound alike drug alert. Avoid grapefruit juice. Given 01/27/2025 6:52 PM EDT 5 mg ampicillin 2000 mg IVPB in 100 mL NS (MBP) 2 g, Intravenous, at 200 mL/hr, Administer over 30 Minutes, Every 4 Hours, First dose on Sun01/26/25 at 0500, For 5 days, Activate vial before use., Indications: Central Nervous System InfectionIndications:Central Nervous System Infection New Bag 01/26/2025 5:40 AM EDT 2 g 200 mL/hr ARIPiprazole (ABILIFY) tablet 2 mg 2 mg, Oral, Daily, First dose (after last modification) on Sun01/26/25 at 1200, Caution: Look alike/sound alike drug alert. Avoid grapefruit juice. Given 01/29/2025 8:32 AM EDT 2 mg Given 01/28/2025 9:03 AM EDT 2 mg Given 01/27/2025 8:37 AM EDT 2 mg bisacodyl (DULCOLAX) EC tablet 5 mg 5 mg, Oral, Daily PRN, Constipation, Use if polyethylene glycol is ineffective, Starting on Sun01/26/25 at 0113, Use if no bowel movement after 12 hours. Swallow whole. Do not crush, split, or chew tablet. bisacodyl (DULCOLAX) suppository 10 mg 10 mg, Rectal, Daily PRN, Constipation, Use if bisacodyl oral is ineffective, Starting on Sun01/26/25 at 0113, Use if no bowel movement after 12 hours. Hold for diarrhea Calcium Replacement - Follow Nurse / BPA Driven Protocol Open Order & Select [facility] Electrolyte Replacement Protocol Algorithm to View Details cefTRIAXone (ROCEPHIN) 1,000 mg in sodium chloride 0.9 % 100 mL MBP 1,000 mg, Intravenous, at 200 mL/hr, Administer over 30 Minutes, Every 24 Hours, First dose on Sun01/26/25 at 0230, For 7 days, LR should be paused and flushing of the line with NS is recommended prior to and after completion of ceftriaxone infusion due to incompatibility. Do not co-adminster with calcium-containing solutions. Caution: Look alike/sound alike drug alert, Indications: Central Nervous System InfectionIndications:Central Nervous System Infection [facility] 01/26/2025 2:33 AM EDT 1,000 mg 200 mL /hr cefTRIAXone (ROCEPHIN) 1,000 mg in sodium chloride 0.9 % 100 mL MBP 1,000 mg, Intravenous, at 200 mL/hr, Administer over 30 Minutes, Once, On Sun01/26/25 at 0830, For 1 dose, Give in addition to 1g dose received at 0230 for total of 2g dose given indication of possible meningitis Caution: Look alike/sound alike drug alert, Indications: Central Nervous System InfectionIndications:Central Nervous System Infection New Bag 01/26/2025 9:37 AM EDT 1,000 mg 200 mL /hr cefTRIAXone (ROCEPHIN) 2,000 mg in sodium chloride 0.9 % 100 mL MBP 2,000 mg, Intravenous, at 200 mL/hr, Administer over 30 Minutes, Every 24 Hours, First dose (after last modification) on Sun01/27/25 at 0600, For 5 days, LR should be paused and flushing of the line with NS is recommended prior to and after completion of ceftriaxone infusion due to incompatibility. Do not co-adminster with calcium-containing solutions. Caution: Look alike/sound alike drug alert, Indications: Central Nervous System InfectionIndications:Central Nervous System Infection New Bag 01/27/2025 5:46 AM EDT 2,000 mg 200 mL /hr cloNIDine (CATAPRES) tablet 0.1 mg 0.1 mg, Oral, Every 12 Hours Scheduled, First dose on Sun01/27/25 at 2130, Hold for SBP less than 100, DBP less than 60, or heart rate less than 50. If a dose is held, please contact the provider. Caution: Look alike/sound alike drug alert. Given 01/29/2025 8:32 AM EDT 0.1 mg Given 01/28/2025 9:14 PM EDT 0.1 mg Given 01/28/2025 9:04 AM EDT 0.1 mg dexmedeTOMIDine (PRECEDEX) 400 mcg in 100 mL NS infusion 0.2-1.5 mcg/kg/hr 81.4 kg (4.07-30.525 mL/hr, rounded to 4.1-30.5 mL/hr), Intravenous, Titrated, Starting on Sun01/26/25 at 0345, Begin infusion at 0.2 mcg/kg/hr and titrate up or down by 0.1-0.2 mcg/kg/hr every 15 minutes to maintain RASS goal. Maximum rate 1.5 mcg/kg/hr. Notify MD if not at RASS goal and requiring rate of greater than 1.5 mcg/kg/hr, or heart rate is less than 50 beats per minute, or MAP is less than 60 mmHg. Monitor RASS., RASS Goal: -1 TO -2, Titration Indication: Sedation Rate/Dose Change 01/27/2025 5:50 AM EDT 0.2 mcg/kg/hr 4.1 mL/hr Rate/Dose Change 01/27/2025 4:44 AM EDT 0.4 mcg/kg/hr 8.1 mL/hr New Bag 01/27/2025 3:58 AM EDT 0.2 mcg/kg/hr 4.1 mL/hr DULoxetine (CYMBALTA) DR capsule 120 mg 120 mg, Oral, Daily, First dose on Sun01/26/25 at 1245, Do not crush or chew the capsules or tablets. The drug may not work as designed if the capsule or tablet is crushed or chewed. Swallow whole. Caution: Look alike/sound alike drug alert. Capsule may be opened and sprinkled on applesauce or apple juice. Do not crush or chew capsule. Given 01/29/2025 8:32 AM EDT 120 mg Given 01/28/2025 9:04 AM EDT 120 mg Given 01/27/2025 8:38 AM EDT 120 mg enoxaparin sodium (LOVENOX) syringe 40 mg 40 mg, Subcutaneous, Daily, First dose on Sun01/27/25 at 1900, Give subcutaneous in abdomen only. Do not massage site after injection., Indications: VTE ProphylaxisIndications:VTE Prophylaxis Given 01/29/2025 8:31 AM EDT 40 mg Left Lower Abdomen Given 01/28/2025 9:04 AM EDT 40 mg Ri ght Lower Abdomen Given 01/27/2025 8:18 PM EDT 40 mg Le ft Lower Abdomen Gadopiclenol (VUEWAY) injection 7.5 mL 7.5 mL, Intravenous, Once in Imaging, On Sun01/27/25 at 0230, For 1 dose, Administer undiluted as intravenous bolus at 2 ml/sec. Flush with NS after injection. Given 01/27/2025 1:30 AM EDT 8 mL iopamidol (ISOVUE-370) 76 % injection 100 mL 100 mL, Intravenous, Once in Imaging, On Sun01/26/25 at 0230, For 1 dose Given 01/26/2025 1:31 AM EDT 100 mL labetalol (NORMODYNE,TRANDATE) injection 10 mg 10 mg, Intravenous, Every 6 Hours PRN, High Blood Pressure, Starting on Sun01/27/25 at 1447, As needed for SBP greater than 180 Give IV Push over 2 minutes. Given 01/27/2025 9:52 PM EDT 10 mg Given 01/27/2025 3:02 PM EDT 10 mg levETIRAcetam (KEPPRA) injection 500 mg 500 mg, Intravenous, Every 12 Hours Scheduled, First dose on Sun01/26/25 at 0900, Caution: Look alike/sound alike drug alert. *When giving as IV push: Do not exceed 1000 mg/min.* Given 01/27/2025 8:38 AM EDT 500 mg Given 01/26/2025 8:55 PM EDT 500 mg Given 01/26/2025 9:43 AM EDT 500 mg levETIRAcetam (KEPPRA) tablet 500 mg 500 mg, Oral, Every 12 Hours Scheduled, First dose on Sun01/27/25 at 2100, Mucous membrane irritant. Do not crush or chew tablet or capsule unless administered through a feeding tube. For tube route administration, disperse crushed tablets in 10 mL of water, shake for 5 minutes to dissolve, and administer immediately via enteral feeding tube. Caution: Look alike/sound alike drug alert. Given 01/29/2025 8:32 AM E DT 500 mg Given 01/28/2025 9:14 PM EDT 500 mg Given 01/28/2025 9:03 AM EDT 500 mg levothyroxine (SYNTHROID, LEVOTHROID) tablet 25 mcg 25 mcg, Oral, Every [employer], First dose (after last modification) on Sun01/27/25 at 0600, Take on empty stomach. Given 01/29/2025 5:33 AM EDT 25 mcg Given 01/28/2025 5:00 AM EDT 25 mcg Given 01/27/2025 5:46 AM EDT 25 mcg Lidocaine 4 % 1 patch 1 patch, Transdermal, Administer over 12 Hours, Every 24 Hours, First dose on Sun01/27/25 at 0000, Apply to skin on back . Remove patch in 12 hours. Apply patch only once for up to 12 hours in 24 hour period. Based on patient request - if ordered for moderate or severe pain, provider allows for administration of a medication prescribed for a lower pain scale. If given for pain, use the following pain scale: Mild Pain = Pain Score of 1-3, CPOT 1-2 Moderate Pain = Pain Score of 4-6, CPOT 3-4 Severe Pain = Pain Score of 7-10, CPOT 5-8 Medication Applied 01/26/2025 11:59 PM EDT 1 patch Other Lidocaine 4 % 1 patch 1 patch, Transdermal, Administer over 12 Hours, Every 24 Hours, First dose (after last modification) on Sun01/28/25 at 1045, Apply to skin on back . Remove patch in 12 hours. Apply patch only once for up to 12 hours in 24 hour period. Based on patient request - if ordered for moderate or severe pain, provider allows for administration of a medication prescribed for a lower pain scale. If given for pain, use the following pain scale: Mild Pain = Pain Score of 1-3, CPOT 1-2 Moderate Pain = Pain Score of 4-6, CPOT 3-4 Severe Pain = Pain Score of 7-10, CPOT 5-8 Medication Applied 01/28/2025 11:32 AM EDT 1 patch Other losartan (COZAAR) tablet 25 mg 25 mg, Oral, Every 24 Hours Scheduled, First dose on 01/27/25 at 1315, Hold for SBP less than 100, DBP less than 60. Given 01/28/2025 9:03 AM EDT 25 mg Given 01/27/2025 12:40 PM EDT 25 mg losartan (COZAAR) tablet 50 mg 50 mg, Oral, Every 12 Hours, First dose (after last modification) on Charlene 01/29/25 at 0815, Hold for SBP less than 100, DBP less than 60. Given 01/29/2025 8:32 AM EDT 50 mg Magnesium Standard Dose Replacement - Follow Nurse / BPA Driven Protocol Open Order & Select [facility] Electrolyte Replacement Protocol Algorithm to View Details midazolam (VERSED) injection Starting on Sun01/26/25 at 0448, For 1 dose, Created by cabinet override If given IV Push: give slowly over at least 2 minutes, unless provider at bedside for induction. (MARCIAL) Given 01/26/2025 4:56 AM EDT 2 mg mupirocin (BACTROBAN) 2 % nasal ointment 1 Application 1 Application, Each Nare, 2 Times Daily, First dose on Sun01/26/25 at 0215, For 5 days, Begin on day 1 of ICU admission and continue for 5 days, even if patient transferred out of critical care. MUPIROCIN APPLICATION: 1. Place patient's bed at 30 degrees, if tolerated. 2. Wash your hands with warm soapy water or use hand stage director. 3. Open the tube of mupirocin 2%. 4. Squeeze about 0.5 g (blueberry-size) of mupirocin from the tube onto a sterile applicator or a cotton swab. 5. Apply the swab directly into nostril. Ensure coating of the sides of the nostril. 6. Repeat with second sterile applicator for other nostril. 7. Gently press the sides of the nostrils together and massage gently for 60 seconds. (BKC) Given 01/29/2025 8:32 AM EDT 1 Ap plication Given 01/28/2025 9:15 PM EDT 1 Application Given 01/28/2025 9:04 AM EDT 1 Application niCARdipine (CARDENE) 25mg in 250mL NS infusion 5-15 mg/hr (50-150 mL/hr), Intravenous, Titrated, Starting on Sun01/26/25 at 0245, Start nicardipine at 5 mg/hr and titrate up or down 2.5 - 5 mg/hr every 5 minutes to maintain a goal SBP = or < 140*. *SBP target range of 130-150, Avoid hypotension when titrating. Maximum dose of 15mg/hr. Contact provider immediately for further orders if unable to maintain SBP less than 150 on maximum dose of 15mg/hr. Administer as a slow continuous infusion via central line or through a large peripheral vein. Peripheral venous irritation may be minimized by changing the site of infusion every 12 hours. Nicardipine 0.2 mg/mL concentration must be infused via central line ONLY. Caution: Look alike/sound alike drug alert New Bag 01/26/2025 5:00 AM EDT 5 mg/hr 50 mL/hr Rate/Dose Change 01/26/2025 2:46 AM EDT 10 mg/hr 100 mL/ hr New Bag 01/26/2025 2:26 AM EDT 5 mg/hr 50 mL/hr oxyCODONE-acetaminophen (PERCOCET) 5-325 MG per tablet 1 tablet 1 tablet, Oral, Every 8 Hours PRN, Moderate Pain, Starting on Sun01/26/25 at 2337, For 5 days, Based on patient request - if ordered for moderate or severe pain, provider allows for administration of a medication prescribed for a lower pain scale. [MARCIAL] Do not exceed 4 grams of acetaminophen in a 24 hr period. Max dose of 2gm for AST/ALT greater than 120 units/L If given for pain, use the following pain scale: Mild Pain = Pain Score of 1-3, CPOT 1-2 Moderate Pain = Pain Score of 4-6, CPOT 3-4 Severe Pain = Pain Score of 7-10, CPOT 5-8 Given 01/29/2025 1:34 PM EDT 1 tablet Given 01/29/2025 5:33 AM EDT 1 tablet Given 01/28/2025 9:13 PM EDT 1 tablet Phosphorus Replacement - Follow Nurse / BPA Driven Protocol Open Order & Select [facility] Electrolyte Replacement Protocol Algorithm to View Details polyethylene glycol (MIRALAX) packet 17 g 17 g, Oral, Daily PRN, Constipation, Use if senna-docusate is ineffective, Starting on Sun01/26/25 at 0113, Use if no bowel movement after 12 hours. Mix in 6-8 ounces of water. Use 4-8 ounces of water, tea, or juice for each 17 gram dose. potassium chloride (KLOR-CON M20) CR tablet 40 mEq 40 mEq, Oral, Every 4 Hours, First dose on Sun01/28/25 at 1330, For 2 doses, Do not crush or chew the capsules or tablets. The drug may not work as designed if the capsule or tablet is crushed or chewed. Swallow whole. Take with food. Given 01/28/2025 5:33 PM EDT 40 mEq Given 01/28/2025 1:02 PM EDT 40 mEq potassium chloride 20 mEq in 50 mL IVPB 20 mEq, Intravenous, at 50 mL/hr, Administer over 60 Minutes, Every 1 Hour, First dose on Sun01/27/25 at 1045, For 2 doses, Infuse through central line only. Max infusion rate 20 meq/hr Serum creatinine: 0.96 mg/dL 01/27/25 0454 Estimated creatinine clearance: 52.6 mL/min New Bag 01/27/2025 12:40 PM EDT 20 mEq 50 mL/hr New Bag 01/27/2025 11:07 AM EDT 20 mEq 50 mL/hr Potassium Replacement - Follow Nurse / BPA Driven Protocol Open Order & Select [facility] Electrolyte Replacement Protocol Algorithm to View Details sennosides-docusate (PERICOLACE) 8.6-50 MG per tablet 2 tablet 2 tablet, Oral, 2 Times Daily PRN, Constipation, Starting on Sun01/26/25 at 0114, HOLD MEDICATION IF PATIENT HAS HAD BOWEL MOVEMENT. Start bowel management regimen if patient has not had a bowel movement after 12 hours. sodium chloride 0.9 % flush 10 mL 10 mL, Intravenous, Every 12 Hours Scheduled, First dose on Sun01/26/25 at 0215 Given 01/29/2025 8:35 AM EDT 10 mL Given 01/28/2025 9:16 PM EDT 10 mL Given 01/28/2025 9:05 AM EDT 10 mL sodium chloride 0.9 % flush 10 mL 10 mL, Intravenous, As Needed, Line Care, Starting on Sun01/26/25 at 0112 sodium chloride 0.9 % flush 10 mL 10 mL, Intravenous, Every 12 Hours Scheduled, First dose on Sun01/26/25 at 0245 Given 01/29/2025 8:36 AM EDT 10 mL Given 01/28/2025 9:16 PM EDT 10 mL Given 01/28/2025 9:18 AM EDT 10 mL sodium chloride 0.9 % flush 10 mL 10 mL, Intravenous, As Needed, Line Care, Starting on Sun01/26/25 at 0152 Given 01/29/2025 8:35 AM EDT 10 mL sodium chloride 0.9 % flush 10 mL 10 mL, Intravenous, Every 12 Hours Scheduled, First dose on Sun01/26/25 at 1230, Lumen #1 Given 01/29/2025 8:36 AM EDT 10 mL Given 01/28/2025 9:15 PM EDT 10 mL Given 01/28/2025 9:18 AM EDT 10 mL sodium chloride 0.9 % flush 10 mL 10 mL, Intravenous, Every 12 Hours Scheduled, First dose on Sun01/26/25 at 1230, Lumen #2 Given 01/29/2025 8:36 AM EDT 10 mL Given 01/28/2025 9:15 PM EDT 10 mL Given 01/28/2025 9:50 AM EDT 10 mL sodium chloride 0.9 % flush 10 mL 10 mL, Intravenous, Every 12 Hours Scheduled, First dose on Sun01/26/25 at 1230, Lumen #3 Given 01/29/2025 8:37 AM EDT 10 mL Given 01/28/2025 9:15 PM EDT 10 mL Given 01/28/2025 9:50 AM EDT 10 mL sodium chloride 0.9 % flush 10 mL 10 mL, Intravenous, As Needed, Line Care, After Medication Administration, Starting on Sun01/26/25 at 1134 sodium chloride 0.9 % flush 20 mL 20 mL, Intravenous, As Needed, Line Care, After Blood Draws or Blood Product Administration, Starting on Sun01/26/25 at 1134 sodium chloride 0.9 % infusion 40 mL 40 mL, Intravenous, at 100 mL/hr, As Needed, Line Care, Starting on Sun01/26/25 at 0112, Following administration of an IV intermittent medication, flush line with 40mL NS at 100mL/hr. sodium chloride 0.9 % infusion 40 mL 40 mL, Intravenous, at 100 mL/hr, As Needed, Line Care, Starting on Sun01/26/25 at 0152, Following administration of an IV intermittent medication, flush line with 40mL NS at 100mL/hr. sodium chloride 0.9 % infusion 40 mL 40 mL, Intravenous, at 100 mL/hr, As Needed, Line Care, Starting on Sun01/26/25 at 1134, Following administration of an IV intermittent medication, flush line with 40mL NS at 100mL/hr. vancomycin IVPB 1750 mg in 0.9% Sodium Chloride (premix) 500 mL 1,750 mg (rounded from 1,628 mg = 20 mg/kg 81.4 kg), Intravenous, at 285.7 mL/hr, Administer over 105 Minutes, Once, On Sun01/26/25 at 0300, For 1 dose, Indications: Central Nervous System InfectionIndications:Central Nervous System Infection New Bag 01/26/2025 2:35 AM EDT 1,750 mg 285.7 mL/hr documented in this encounter Active and Recently Administered Medications Times are shown in EDT. Scheduled Medication Order 01/27/2025 01/28/2025 01/29/2025 acyclovir (ZOVIRAX) capsule 400 mg 400 mg, Oral, 2 Times Daily, First dose on Sun01/27/25 at 0900, For 7 days, Indications: Prophylaxis 1107 (Given - Provider: Lainey Zaman RN)2018 (Given - Provider: Mar Soriano RN) 0903 (Given - Provider: Rossy Singh RN)2112 (Given - Provider: Mary Wu RN) 0832 (Given - Provider: Mary Valdez RN Esthetician Makeup Artist) amitriptyline (ELAVIL) tablet 50 mg 50 mg, Oral, Nightly, First dose (after last modification) on Sun01/26/25 at 2100 2018 (Given - Provider: Mar Soriano RN) 2113 (Given - Provider: Mary Wu RN) amLODIPine (NORVASC) tablet 10 mg 10 mg, Oral, Every 24 Hours Scheduled, First dose (after last modification) on Sun01/28/25 at 0900, Hold for SBP less than 100, DBP less than 60. Caution: Look alike/sound alike drug alert. Avoid grapefruit juice. 0904 (Given - Provider: Rossy Singh RN) 0833 (Given - Provider: Mary Valdez RN Esthetician Makeup Artist) amLODIPine (NORVASC) tablet 5 mg (CANCELED) 5 mg, Oral, Every 24 Hours Scheduled, First dose on Sun01/27/25 at 1045, Hold for SBP less than 100, DBP less than 60. Caution: Look alike/sound alike drug alert. Avoid grapefruit juice. 110 (Given - Provider: Lainey Zaman RN) amLODIPine (NORVASC) tablet 5 mg (COMPLETED) 5 mg, Oral, Once, On Sun01/27/25 at 1845, For 1 dose, Hold for SBP less than 100, DBP less than 60. Caution: Look alike/sound alike drug alert. Avoid grapefruit juice. 185 (Given - Provider: Lainey Zaman RN) ARIPiprazole (ABILIFY) tablet 2 mg 2 mg, Oral, Daily, First dose (after last modification) on Sun01/26/25 at 1200, Caution: Look alike/sound alike drug alert. Avoid grapefruit juice. 0837 (Given - Provider: Lainey Zaman RN) 0903 (Given - Provider: Rossy Singh RN) 0832 (Given - Provider: Mary Valdez, SPENCER Esthetician Makeup Artist) cefTRIAXone (ROCEPHIN) 2,000 mg in sodium chloride 0.9 % 100 mL MBP (CANCELED) 2,000 mg, Intravenous, at 200 mL/hr, Administer over 30 Minutes, Every 24 Hours, First dose (after last modification) on Sun01/27/25 at 0600, For 5 days, LR should be paused and flushing of the line with NS is recommended prior to and after completion of ceftriaxone infusion due to incompatibility. Do not co-adminster with calcium-containing solutions. Caution: Look alike/sound alike drug alert, Indications: Central Nervous System Infection 0546 (New Bag - Provider: Minnie Castillo RN) cloNIDine (CATAPRES) tablet 0.1 mg 0.1 mg, Oral, Every 12 Hours Scheduled, First dose on Sun01/27/25 at 2130, Hold for SBP less than 100, DBP less than 60, or heart rate less than 50. If a dose is held, please contact the provider. Caution: Look alike/sound alike drug alert. 2046 (Given - Provider: Mar Soriano RN) 09 (Given - Provider: Rossy Singh RN)2113 (Given - Provider: Mary Wu RN) 0832 (Given - Provider: Mary Valdez RN Esthetician Makeup Artist) DULoxetine (CYMBALTA) DR capsule 120 mg 120 mg, Oral, Daily, First dose on Sun01/26/25 at 1245, Do not crush or chew the capsules or tablets. The drug may not work as designed if the capsule or tablet is crushed or chewed. Swallow whole. Caution: Look alike/sound alike drug alert. Capsule may be opened and sprinkled on applesauce or apple juice. Do not crush or chew capsule. 837 (Given - Provider: Lainey Zaman RN) 09 (Given - Provider: Rossy Singh RN) 0832 (Given - Provider: Mary Valdez RN Esthetician Makeup Artist) enoxaparin sodium (LOVENOX) syringe 40 mg 40 mg, Subcutaneous, Daily, First dose on Sun01/27/25 at 1900, Give subcutaneous in abdomen only. Do not massage site after injection., Indications: VTE Prophylaxis 2017 (Given - Provider: Mar Soriano RN) 0904 (Given - Provider: Rossy Singh RN) 0831 (Given - Provider: Mary Valdez RN Esthetician Makeup Artist) Gadopiclenol (VUEWAY) injection 7.5 mL (COMPLETED) 7.5 mL, Intravenous, Once in Imaging, On Sun01/27/25 at 0230, For 1 dose, Administer undiluted as intravenous bolus at 2 ml/sec. Flush with NS after injection. 0130 (Given - Provider: Lolly Garcias) levETIRAcetam (KEPPRA) injection 500 mg (CANCELED) 500 mg, Intravenous, Every 12 Hours Scheduled, First dose on Sun01/26/25 at 0900, Caution: Look alike/sound alike drug alert. *When giving as IV push: Do not exceed 1000 mg/min.* 0838 (Given - Provider: Lainey Zaman RN) levETIRAcetam (KEPPRA) tablet 500 mg 500 mg, Oral, Every 12 Hours Scheduled, First dose on Sun01/27/25 at 2100, Mucous membrane irritant. Do not crush or chew tablet or capsule unless administered through a feeding tube. For tube route administration, disperse crushed tablets in 10 mL of water, shake for 5 minutes to dissolve, and administer immediately via enteral feeding tube. Caution: Look alike/sound alike drug alert. 2018 (Given - Provider: Mar Soriano RN) 0903 (Given - Provider: Rossy Singh RN)2114 (Given - Provider: Mary Wu, SPENCER) 0832 (Given - Provider: Mary Valdez RN Esthetician Makeup Artist) levothyroxine (SYNTHROID, LEVOTHROID) tablet 25 mcg 25 mcg, Oral, Every [employer], First dose (after last modification) on Sun01/27/25 at 0600, Take on empty stomach. 0546 (Given - Provider: Minnie Castillo RN) 0500 (Given - Provider: Raeann Arredondo RN) 0533 (Given - Provider: Mary Wu, SPENCER) Lidocaine 4 % 1 patch 1 patch, Transdermal, Administer over 12 Hours, Every 24 Hours, First dose (after last modification) on Sun01/28/25 at 1045, Apply to skin on back . Remove patch in 12 hours. Apply patch only once for up to 12 hours in 24 hour period. Based on patient request - if ordered for moderate or severe pain, provider allows for administration of a medication prescribed for a lower pain scale. If given for pain, use the following pain scale: Mild Pain = Pain Score of 1-3, CPOT 1-2 Moderate Pain = Pain Score of 4-6, CPOT 3-4 Severe Pain = Pain Score of 7-10, CPOT 5-8 1132 (Medication Applied - Provider: Rossy Singh RN - Comment: lower back)2357 (Medication Removed - Provider: Mary Wu RN) 1111 (Not Given - Provider: Mary Valdez RN Esthetician Makeup Artist - Reason: Patient not available) losartan (COZAAR) tablet 25 mg (CANCELED) 25 mg, Oral, Every 24 Hours Scheduled, First dose on Sun01/27/25 at 1315, Hold for SBP less than 100, DBP less than 60. 1240 (Given - Provider: Lainey Zaman RN) 0903 (Given - Provider: Rossy Singh RN) losartan (COZAAR) tablet 50 mg 50 mg, Oral, Every 12 Hours, First dose (after last modification) on Charlene 01/29/25 at 0815, Hold for SBP less than 100, DBP less than 60. 0832 (Given - Provider: Mary Valdez RN Esthetician Makeup Artist) mupirocin (BACTROBAN) 2 % nasal ointment 1 Application 1 Application, Each Nare, 2 Times Daily, First dose on 01/26/25 at 0215, For 5 days, Begin on day 1 of ICU admission and continue for 5 days, even if patient transferred out of critical care. MUPIROCIN APPLICATION: 1. Place patient's bed at 30 degrees, if tolerated. 2. Wash your hands with warm soapy water or use hand stage director. 3. Open the tube of mupirocin 2%. 4. Squeeze about 0.5 g (blueberry-size) of mupirocin from the tube onto a sterile applicator or a cotton swab. 5. Apply the swab directly into nostril. Ensure coating of the sides of the nostril. 6. Repeat with second sterile applicator for other nostril. 7. Gently press the sides of the nostrils together and massage gently for 60 seconds. ([facility]) 0837 (Given - Provider: Lainey Zaman RN)2018 (Given - Provider: Mar Soriano RN) 0904 (Given - Provider: Rossy Singh RN)2115 (Given - Provider: Mary Wu RN) 0832 (Given - Provider: Mary Valdez RN Esthetician Makeup Artist) potassium chloride (KLOR-CON M20) CR tablet 40 mEq (COMPLETED) 40 mEq, Oral, Every 4 Hours, First dose on Sun01/28/25 at 1330, For 2 doses, Do not crush or chew the capsules or tablets. The drug may not work as designed if the capsule or tablet is crushed or chewed. Swallow whole. Take with food. 1302 (Given - Provider: Rossy Singh RN)1733 (Given - Provider: Rossy Singh RN) potassium chloride 20 mEq in 50 mL IVPB (COMPLETED) 20 mEq, Intravenous, at 50 mL/hr, Administer over 60 Minutes, Every 1 Hour, First dose on Sun01/27/25 at 1045, For 2 doses, Infuse through central line only. Max infusion rate 20 meq/hr Serum creatinine: 0.96 mg/dL 01/27/25 0454 Estimated creatinine clearance: 52.6 mL/min 1107 (New Bag - Provider: Lainey Zaman RN)1240 (New Bag - Provider: Lainey Zaman RN) sodium chloride 0.9 % flush 10 mL 10 mL, Intravenous, Every 12 Hours Scheduled, First dose on Sun01/26/25 at 0215 0854 (Not Given - Provider: Lainey Zaman RN - Reason: Given from running infusion)2018 (Canceled Entry - Provider: Mar Soriano RN) 0905 (Given - Provider: Rossy Singh RN)2115 (Given - Provider: Mary Wu RN) 0835 (Given - Provider: Mary Valdez RN Esthetician Makeup Artist) sodium chloride 0.9 % flush 10 mL 10 mL, Intravenous, Every 12 Hours Scheduled, First dose on Sun01/26/25 at 0245 0854 (Not Given - Provider: Lainey Zaman RN - Reason: Given from running infusion)2018 (Canceled Entry - Provider: Mar Soriano RN) 0918 (Given - Provider: Rossy Singh RN)2115 (Given - Provider: Mary Wu RN) 0836 (Given - Provider: Elena Torre RN) sodium chloride 0.9 % flush 10 mL 10 mL, Intravenous, Every 12 Hours Scheduled, First dose on Sun01/26/25 at 1230, Lumen #1 0845 (Given - Provider: Lainey Zaman, RN)2018 (Given - Provider: Mar Soriano, RN) 0918 (Given - Provider: Rossy Singh, RN)2114 (Given - Provider: Mary Wu, RN) 0836 (Given - Provider: Elena Torre, RN) sodium chloride 0.9 % flush 10 mL 10 mL, Intravenous, Every 12 Hours Scheduled, First dose on Sun01/26/25 at 1230, Lumen #2 0845 (Given - Provider: Lainey Zaman, RN)2018 (Given - Provider: Mar Soriano, RN) 0950 (Given - Provider: Rossy Singh, RN)2114 (Given - Provider: Mary Wu, SPENCER) 0836 (Given - Provider: Elena Torre, RN) sodium chloride 0.9 % flush 10 mL 10 mL, Intravenous, Every 12 Hours Scheduled, First dose on Sun01/26/25 at 1230, Lumen #3 0845 (Given - Provider: Lainey Zaman, RN)2018 (Given - Provider: Mar Soriano, RN) 0950 (Given - Provider: Rossy Singh, SPENCER)2114 (Given - Provider: Mary Wu, SPENCER) 0837 (Given - Provider: Elena Torre, RN) Continuous Medication Order 01/27/2025 01/28/2025 01/29/2025 dexmedeTOMIDine (PRECEDEX) 400 mcg in 100 mL NS infusion (CANCELED) 0.2-1.5 mcg/kg/hr 81.4 kg (4.07-30.525 mL/hr, rounded to 4.1-30.5 mL/hr), Intravenous, Titrated, Starting on Sun01/26/25 at 0345, Begin infusion at 0.2 mcg/kg/hr and titrate up or down by 0.1-0.2 mcg/kg/hr every 15 minutes to maintain RASS goal. Maximum rate 1.5 mcg/kg/hr. Notify MD if not at RASS goal and requiring rate of greater than 1.5 mcg/kg/hr, or heart rate is less than 50 beats per minute, or MAP is less than 60 mmHg. Monitor RASS., RASS Goal: -1 TO -2, Titration Indication: Sedation 0045 (Rate/Dose Change - Provider: Minnie Castillo RN)0115 (Rate/Dose Change - Provider: Minnie Castillo RN)0130 (Rate/Dose Change - Provider: Minnie Castillo RN)0228 (Rate/Dose Change - Provider: Minnie Castillo RN)0358 (New Bag - Provider: Minnie Castillo RN)0444 (Rate/Dose Change - Provider: Minnie Castillo RN)0550 (Rate/Dose Change - Provider: Minnie Castillo, RN)0615 (Stopped - Provider: Minnie Castillo RN) PRN Medication Order 01/27/2025 01/28/2025 01/29/2025 bisacodyl (DULCOLAX) EC tablet 5 mg(Linked Group 1) 5 mg, Oral, Daily PRN, Constipation, Use if polyethylene glycol is ineffective, Starting on Sun01/26/25 at 0113, Use if no bowel movement after 12 hours. Swallow whole. Do not crush, split, or chew tablet. bisacodyl (DULCOLAX) suppository 10 mg(Linked Group 1) 10 mg, Rectal, Daily PRN, Constipation, Use if bisacodyl oral is ineffective, Starting on Sun01/26/25 at 0113, Use if no bowel movement after 12 hours. Hold for diarrhea Calcium Replacement - Follow Nurse / BPA Driven Protocol Open Order & Select S Electrolyte Replacement Protocol Algorithm to View Details labetalol (NORMODYNE,TRANDATE) injection 10 mg 10 mg, Intravenous, Every 6 Hours PRN, High Blood Pressure, Starting on Sun01/27/25 at 1447, As needed for SBP greater than 180 Give IV Push over 2 minutes. 1502 (Given - Provider: Lainey Zaman, SPENCER)2152 (Given - Provider: Shabana Abdul RN) Magnesium Standard Dose Replacement - Follow Nurse / BPA Driven Protocol Open Order & Select S Electrolyte Replacement Protocol Algorithm to View Details oxyCODONE-acetaminophen (PERCOCET) 5-325 MG per tablet 1 tablet 1 tablet, Oral, Every 8 Hours PRN, Moderate Pain, Starting on Sun01/26/25 at 2337, For 5 days, Based on patient request - if ordered for moderate or severe pain, provider allows for administration of a medication prescribed for a lower pain scale. [MARCIAL] Do not exceed 4 grams of acetaminophen in a 24 hr period. Max dose of 2gm for AST/ALT greater than 120 units/L If given for pain, use the following pain scale: Mild Pain = Pain Score of 1-3, CPOT 1-2 Moderate Pain = Pain Score of 4-6, CPOT 3-4 Severe Pain = Pain Score of 7-10, CPOT 5-8 0837 (Given - Provider: Lainey Zaman, SPENCER)2050 (Given - Provider: Mar Soriano, SPENCER) 0500 (Given - Provider: Raeann Arredondo, SPENCER)1302 (Given - Provider: Rossy Singh, SPENCER)2113 (Given - Provider: Mary Wu, SPENCER) 0533 (Given - Provider: Mary Wu RN)1334 (Given - Provider: Mary Valdez RN Esthetician Makeup Artist) Phosphorus Replacement - Follow Nurse / BPA Driven Protocol Open Order & Select [facility] Electrolyte Replacement Protocol Algorithm to View Details polyethylene glycol (MIRALAX) packet 17 g(Linked Group 1) 17 g, Oral, Daily PRN, Constipation, Use if senna-docusate is ineffective, Starting on Sun01/26/25 at 0113, Use if no bowel movement after 12 hours. Mix in 6-8 ounces of water. Use 4-8 ounces of water, tea, or juice for each 17 gram dose. Potassium Replacement - Follow Nurse / BPA Driven Protocol Open Order & Select [facility] Electrolyte Replacement Protocol Algorithm to View Details sennosides-docusate (PERICOLACE) 8.6-50 MG per tablet 2 tablet(Linked Group 1) 2 tablet, Oral, 2 Times Daily PRN, Constipation, Starting on Sun01/26/25 at 0114, HOLD MEDICATION IF PATIENT HAS HAD BOWEL MOVEMENT. Start bowel management regimen if patient has not had a bowel movement after 12 hours. sodium chloride 0.9 % flush 10 mL 10 mL, Intravenous, As Needed, Line Care, Starting on Sun01/26/25 at 0112 sodium chloride 0.9 % flush 10 mL 10 mL, Intravenous, As Needed, Line Care, Starting on Sun01/26/25 at 0152 0835 (Given - Provider: Mary Valdez RN Esthetician Makeup Artist) sodium chloride 0.9 % flush 10 mL 10 mL, Intravenous, As Needed, Line Care, After Medication Administration, Starting on Sun01/26/25 at 1134 sodium chloride 0.9 % flush 20 mL 20 mL, Intravenous, As Needed, Line Care, After Blood Draws or Blood Product Administration, Starting on Sun01/26/25 at 1134 sodium chloride 0.9 % infusion 40 mL 40 mL, Intravenous, at 100 mL/hr, As Needed, Line Care, Starting on Sun01/26/25 at 0112, Following administration of an IV intermittent medication, flush line with 40mL NS at 100mL/hr. sodium chloride 0.9 % infusion 40 mL 40 mL, Intravenous, at 100 mL/hr, As Needed, Line Care, Starting on Sun01/26/25 at 0152, Following administration of an IV intermittent medication, flush line with 40mL NS at 100mL/hr. sodium chloride 0.9 % infusion 40 mL 40 mL, Intravenous, at 100 mL/hr, As Needed, Line Care, Starting on Sun01/26/25 at 1134, Following administration of an IV intermittent medication, flush line with 40mL NS at 100mL/hr. Linked Groups Order Group 1: sennosides-docusate (PERICOLACE) 8.6-50 MG per tablet 2 tabletJump to med 2 tablet, Oral, 2 Times Daily PRN, Constipation, Starting on Sun01/26/25 at 0114, HOLD MEDICATION IF PATIENT HAS HAD BOWEL MOVEMENT. Start bowel management regimen if patient has not had a bowel movement after 12 hours. And polyethylene glycol (MIRALAX) packet 17 gJump to med 17 g, Oral, Daily PRN, Constipation, Use if senna-docusate is ineffective, Starting on Sun01/26/25 at 0113, Use if no bowel movement after 12 hours. Mix in 6-8 ounces of water. Use 4-8 ounces of water, tea, or juice for each 17 gram dose. And bisacodyl (DULCOLAX) EC tablet 5 mgJump to med 5 mg, Oral, Daily PRN, Constipation, Use if polyethylene glycol is ineffective, Starting on Sun01/26/25 at 0113, Use if no bowel movement after 12 hours. Swallow whole. Do not crush, split, or chew tablet. And bisacodyl (DULCOLAX) suppository 10 mgJump to med 10 mg, Rectal, Daily PRN, Constipation, Use if bisacodyl oral is ineffective, Starting on 01/26/25 at 0113, Use if no bowel movement after 12 hours. 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
[2025-02-05] VITALS (12 sets, daily range): BP systolic 71–111; BP diastolic 45–70; PULSE 71–97; RESP 12–20; TEMP 36.6–36.8; O2SAT 97–100; BMI 29.2; BMI 32.3
--- NOTE | 2025-02-05 14:42 | ED_ITS ---
<Statement entered by Evelyne Berry DO - 02/05/25 17:27> I was consulted by the LV, and we discussed the complexity of problems being addressed. I approve the treatment and management plan for this patient's care in the emergency department, thus performing a substantial portion of the medical decision making. Evelyne Berry DO Discharge Plan Disposition Patient Disposition: Admitted Condition: Good Prescriptions Prescriptions: No Action amitriptyline 50 mg tablet 50 mg PO HS Qty: 30 12RF aripiprazole 2 mg tablet 2 mg PO DAILY estradiol 0.25 mg/0.25 gram (0.1 %) gel in packet 1 packet transdermal DAILY sulfamethoxazole-trimethoprim 400-80 mg tablet 1 tab PO DAILY 90 Days Qty: 90 3RF nystatin 100,000 unit/gram cream 1 applic TOPICAL BID Qty: 30 5RF tretinoin [Retin-A] 0.05 % cream 1 applic topical HS Qty: 45 2RF hydromorphone 4 mg tablet 4 mg PO Q4HP PRN (Reason: Severe Pain (Scale Score 7-10)) Qty: 60 0RF oxycodone 10 mg tablet 10 mg PO Q4HP MDD No> 6/day PRN (Reason: Moderate Pain (Scale Score 5-6)) Qty: 180 0RF ergocalciferol (vitamin D2) 1,250 mcg (50,000 unit) capsule 1,250 mcg PO WEEKLY Qty: 4 1RF atorvastatin 40 mg tablet 40 mg PO DAILY Qty: 90 3RF diphenoxylate-atropine 2.5-0.025 mg tablet 1 tab PO TID 90 Days Qty: 270 3RF tizanidine 4 mg tablet See Rx Instructions .ROUTE .COMPLEX Qty: 90 0RF Dose Instruction: TAKE 1 TABLET BY MOUTH THREE TIMES DAILY NEEDED FOR MUSCLE SPASTICITY MAY CAUSE DROWSINESS Rx Instructions: TAKE 1 TABLET BY MOUTH THREE TIMES DAILY NEEDED FOR MUSCLE SPASTICITY MAY CAUSE DROWSINESS furosemide 40 mg tablet 40 mg PO DAILYP PRN (Reason: Edema) Qty: 30 1RF clonidine HCl 0.1 mg tablet See Rx Instructions .ROUTE .COMPLEX Qty: 180 0RF Dose Instruction: TAKE ONE TO TWO TABLETS BY MOUTH 2 TO 3 TIMES A DAY NEEDED FOR ANXIETY MAY CAUSE DROWSINESS Rx Instructions: TAKE ONE TO TWO TABLETS BY MOUTH 2 TO 3 TIMES A DAY NEEDED FOR ANXIETY MAY CAUSE DROWSINESS amlodipine 5 mg tablet 5 mg PO HS Qty: 90 3RF levothyroxine 25 mcg tablet 25 mcg PO DAILY Qty: 90 3RF losartan 50 mg tablet 75 mg PO DAILY Qty: 135 3RF sulfamethoxazole-trimethoprim 800-160 mg tablet 1 tab PO BID 5 Days Qty: 10 0RF dicyclomine 10 mg capsule 10 mg PO TIDP PRN (Reason: abdominal pain) ciclopirox 0.77 % gel 1 applic topical DAILY Rx Instructions: Apply daily to affected toenail. Smooth with emery board weekly. duloxetine 60 mg capsule,delayed release(DR/EC) 120 mg PO DAILY hydralazine 10 mg tablet 10 mg PO Q6H PRN (Reason: hypertension) Qty: 60 0RF Rx Instructions: until target blood pressure attained Referrals Follow up/Referrals: Connor Gomez MD [Primary Care Provider, Family Practice] - See instructions Clinical Impressions Clinical Impression: Urinary tract infection Print Language Print Language: [place] Discharge ED Provider: Evelyne Berry General Adult HPI General Chief complaint: Abdominal Pain Stated complaint: stomach pain, low bp Time Seen by Provider: 02/05/25 14:42 History of Present Illness HPI narrative: 74-year-old female presents emergency department with complaints of ongoing abdominal pain with low blood pressure. Patient was seen at this facility last night where her blood pressure was elevated. She was also complaining of abdominal pain at that time and diagnosed with enteritis. Patient was discharged with hydralazine for treatment of her pressure to use in conjunction with her normal blood pressure medications patient states she has not taken the hydroxyzine prior to arrival today. She reports that she did take 20 mg of oxycodone at approximately 10 AM as well as 0.1 mg of clonidine. Related Data Home Medications ?Medication ?Instructions ?Recorded ?Confirmed aripiprazole 2 mg tablet 2 mg PO DAILY 05/09/2401/15 ciclopirox 0.77 % topical gel 1 applic topical DAILY 0 11/30/24 01/15/25 Held on 01/28/25. Instructions: Deferring continuation of medication to accepting facility due to current state of altered mental status. Oral medications currently are not appropriate due to her mentation state. Will defer as noted. dicyclomine 10 mg capsule 10 mg PO TIDP PRN abdominal pain 11/30/24 01/15/25 Held on 01/28/25. Instructions: Deferring continuation of medication to accepting facility due to current state of altered mental status. Oral medications currently are not appropriate due to her mentation state. Will defer as noted. duloxetine 60 mg capsule,delayed 120 mg PO DAILY 11/3001/15/25 release Held on 01/28/25. Instructions: Deferring continuation of medication to accepting facility due to current state of altered mental status. Oral medications currently are not appropriate due to her mentation state. Will defer as noted. estradiol 0.25 mg/0.25 gram (0.1 1 packet transdermal DAILY 01/08/25 01/15/25 %) transdermal gel packet Previous Rx's ?Medication ?Instructions ?Recorded amitriptyline 50 mg tablet 50 mg PO HS #30 tabs ergocalciferol (vitamin D2) 1,250 1,250 mcg PO WEEKLY #4 caps 07/07/24 mcg (50,000 unit) capsule atorvastatin 40 mg tablet 40 mg PO DAILY #90 tabs 09/30 10/24 diphenoxylate-atropine 2.5 1 tab PO TID 90 days #270 t abs 11/26/24 mg-0.025 mg tablet tizanidine 4 mg tablet See Rx Instructions .Route 1 .COMPLEX #90 ea furosemide 40 mg tablet 40 mg PO DAILYP PRN Edema #3 0 tabs 01/02/25 clonidine HCl 0.1 mg tablet See Rx Instructions .Route 01/07/25 .COMPLEX #180 tabs hydromorphone 4 mg tablet 4 mg PO Q4HP PRN Severe Pain 01/08/25 (Scale Score 7-10) #60 tabs nystatin 100,000 unit/gram topical 1 applic topical BI D Rash #30 grams 01/08/25 cream oxycodone 10 mg tablet 10 mg PO Q4HP PRN Moderate P ain 01/08/25 (Scale Score 5-6) #180 tabs sulfamethoxazole 400 1 tab PO DAILY 90 days #90 t abs 01/08/25 mg-trimethoprim 80 mg tablet tretinoin 0.05 % topical cream 1 applic topical HS #45 grams 01/08/25 (Retin-A) amlodipine 5 mg tablet 5 mg PO HS #90 tabs 01/11/25 levothyroxine 25 mcg tablet 25 mcg PO DAILY #90 tabs 1 losartan 50 mg tablet 75 mg (1.5 x 50 mg) PO DAILY #135 01/11/25 tabs sulfamethoxazole 800 1 tab PO BID 5 days #10 tabs 01/12/25 mg-trimethoprim 160 mg tablet hydralazine 10 mg tablet 10 mg PO Q6H PRN hypertensio n #60 02/05/25 tabs Allergies Allergy/AdvReac Type Severity Reaction Status Date / Time ciprofloxacin (From Cipro) Allergy Intermediate Muscle Pain Verified 01/15/25 11:20 levofloxacin (From Levaquin) AdvReac Rash Verified 01/15/25 11:20 PFSH PFSH Disclaimer: The information contained in this section may have been updated after the patient was seen, as this information can be updated by other users. Medical History Left foot pain Right foot injury Chronic kidney disease TIP (acute kidney injury) Systolic murmur Bowel wall thickening Ischemic bowel disease Hypertension Paroxysmal atrial fibrillation Aftercare following bilateral knee joint replacement surgery C. difficile diarrhea Colostomy in place Perforated sigmoid colon Elevated liver enzymes Ileus Abnormal electrocardiogram [ECG] [EKG] Abdominal pain Hypothyroidism IBS (irritable bowel syndrome) HLD (hyperlipidemia) HTN (hypertension), benign Hypokalemia Hypokalemia due to loss of potassium Surgical History H/O ileostomy History of total right hip replacement History of arthroscopy of left shoulder Family History Other Anemia Asthma Cancer Hyperlipidemia Social History Smoking Status: Never smoker second hand exposure: No alcohol intake: never current occupational status: retired Travel in the last 8 weeks?: None household members: spouse housing: house marital status: current occupational exposures/hazards: No caffeine: No Have you lived/traveled outside [place] in past 30 days?: No Contact w/someone who lives/traveled outside US past 30 days?: No Exposure to someone with infectious disease in past 14 days?: No Do you have a fever (greater than 100.4 F or 38 C)?: No Have you tested positive for COVID-19?: No Exposed to someone with COVID-19 in past 14 days?: No Do you have a sore throat?: No Do you have a cough?: No Do you have any weakness?: Yes Do you have any diarrhea?: No Are you experiencing any unusual bleeding?: No Do you have any muscle aches/pain?: No Do you have any abdominal pain?: No Are you experiencing loss of taste or smell?: No Other Medical History Have you received the Flu Vaccine for this season: No Have you received the Pneumonia Vaccine: No ROS Obtained: Yes other Cardiovascular Cardiovascular: Reports other (Hypotension) Gastrointestinal Gastrointestingal: Reports abdominal pain Neurologic Neurologic: Reports other (Drowsy) Physical Exam Narrative Physical exam: General: Awake, aware, in no acute distress HEENT: Normocephalic, no evidence of trauma CV: RRR, no murmurs, rubs, or gallops Pulm: CTA bilaterally with no rhonchi, rales, wheezes ABD: Patient with normal active bowel sounds in all quadrants. Patient does report diffuse abdominal tenderness. Patient has ileostomy that is present. Psych, appropriate mood and affect Neuro: Patient is alert and oriented and answering all questions appropriately. SHe is moving all extremities without difficulty. Sensations intact with 2+ pulses in all extremities. General General appearance: alert Respiratory Respiratory exam: Present normal lung sounds bilaterally Cardiovascular Cardiovascular exam: Present regular rate Neurological Exam Neurological exam: Present alert Medical Decision Making Medical Records Screening: Per USPSTF and CDC recommendations, given the prevalence of disease in our region, it is our hospital?s policy to screen for HIV and viral Hepatitis for all patients aged 18 and over and those with ongoing risk factors. Beto Inquiry Pt receiving controlled substance: No Vital Signs: 02/05/25 14:40 02/05/25 14:53 02/05/25 15:00 Temperature 98.1 F Temperature Source Oral Pulse Rate 94 H 91 H Pulse Rate [Left Radial] 97 H Respiratory Rate 20 13 20 Blood Pressure 77/47 L 86/60 L Blood Pressure [Right Arm] 89/45 L Blood Pressure Mean Blood Pressure Mean [Right Arm] 59 02 Sat by Pulse Oximetry 98 100 100 Oxygen Delivery Method Room Air 02/05/25 15:10 02/05/25 16:21 02/05/25 16:30 Temperature Temperature Source Pulse Rate 92 H 71 81 Pulse Rate [Left Radial] Respiratory Rate 15 14 16 Blood Pressure 71/46 L 95/46 L 86/56 L Blood Pressure [Right Arm] Blood Pressure Mean 54 66 Blood Pressure Mean [Right Arm] 02 Sat by Pulse Oximetry 98 100 100 Oxygen Delivery Method Room Air Room Air 02/05/25 17:00 Temperature Temperature Source Pulse Rate 82 Pulse Rate [Left Radial] Respiratory Rate 16 Blood Pressure 77/48 L Blood Pressure [Right Arm] Blood Pressure Mean Blood Pressure Mean [Right Arm] 02 Sat by Pulse Oximetry 100 Oxygen Delivery Method Room Air Lab Data Lab Results 02/05/25 15:27: WBC 10.6 D, RBC 3.93 L, Hgb 11.8 L, Hct 36.7 L, MCV 93.4, MCH 30.0, MCHC 32.2, RDW 13.6, Plt Count 495 H, MPV 9.0, Neut % (Auto) 68.7, Lymph % (Auto) 19.4, [place] % (Auto) 7.9, Eos % (Auto) 3.1, Baso % (Auto) 0.5, Neut # (Auto) 7.3, Lymph # (Auto) 2.1, [place] # (Auto) 0.8, Eos # (Auto) 0.3, Baso # (Auto) 0.1, PT 10.6, INR 0.95, APTT 23.7, Sodium 135 L, Potassium 4.3, Chloride 101, Carbon Dioxide 23, Anion Gap 15.3 H, BUN 26 H, Creatinine 1.80 H D, Estimated Creat Clear 33, Estimated GFR 28 L, Est GFR ( Amer) 33 L D, G lucose 96 D, Lactate 2.1, Calcium 9.3, Magnesium 1.8 D, Total Bilirubin 0.6, AST 24, ALT 19, Alkaline Phosphatase 102, Total Protein 7.4, Albumin 4.9, Globulin 2.5, Albumin/Globulin Ratio 2.0 H 02/05/25 15:55: Urine Color Yellow, Urine Appearance Clear, Urine pH 6.0, Ur Specific [place] 1.015, Urine Protein Trace, Urine Glucose (UA) Negative, Urine Ketones Negative, Urine Blood Negative, Urine Nitrate Negative, Urine Bilirubin Negative, Urine Urobilinogen 0.2, Ur Leukocyte Esterase Negative, Urine RBC 3-5, Urine WBC 10-20, Ur Squamous Epith Cells 5-10, Urine Bacteria 4+ 02/05/25 15:27 02/05/25 15:27 Orders (Tests/Meds): ED MEDICATIONS Generic Name Dose Route Start Last Admin Trade Name Freq PRN Reason Stop Dose Admin Sodium Chloride 1,000 mls @ 999 mls/hr 02/05/25 16:44 02/05/25 16:59 Sod Chlor 0.9% 1000ml Bag IV 02/05/25 17:44 999 mls/hr .Q1H1M ONE Administration Discontinued Medications Generic Name Dose Route Start Last Admin Trade Name Freq PRN Reason Stop Dose Admin Sodium Chloride 1,000 mls @ 999 mls/hr 02/05/25 15:03 02/05/25 16:48 Sod Chlor 0.9% 1000ml Bag IV 02/05/25 16:03 Infused .Q1H1M ONE Infusion Ceftriaxone Sodium 1 gm/ 50 mls @ 100 mls/hr 02/05/25 16:44 02/05/25 17:20 Sodium Chloride IV 02/05/25 17:13 Infused ONCE ONE Infusion ORDERS Category Date Time Status XR chest portable Stat Exams 02/05/25 15:04 Completed Complete Blood Count Auto Diff Stat Lab 02/05/25 15:27 Completed Comprehensive Metabolic Panel Stat Lab 02/05/25 15:27 Completed Lactic Acid Stat Lab 02/05/25 15:27 Completed Magnesium Stat Lab 02/05/25 15:27 Completed PT/PTT Stat Lab 02/05/25 15:27 Completed Urinalysis and Microscopic Stat Lab 02/05/25 15:55 Completed Blood Culture Stat Micro 02/05/25 15:03 Received Urine Culture Stat Micro 02/05/25 15:55 Received Medical Decision Narrative: Initial impression of presenting illness: 74-year-old female presents emergency department with complaints of ongoing abdominal pain with low blood pressure. Patient was seen at this facility last night with complaints of abdominal pain however she was complaining of hypertension at that time. Patient's blood pressure responded with labetalol and she was also discharged with hydralazine. She states that she has not taken any of the hydralazine since being discharged from this facility. She reports she did take 20 mg of oxycodone as well as 0.1 mg of clonidine at approximately 10 AM. Her states that she has been drowsy difficult to arouse today. After taking her routine blood pressure medications they checked her pressure and noticed that it was low and came to the ER for evaluation. Differential diagnosis includes but is not limited to: Sepsis, dehydration, overmedication of narcotics, urinary tract infection, pneumonia Patient arrives hemodynamically stable, afebrile, without respiratory distress with vital signs interpreted by myself. Initial physical exam reveals diffuse abdominal tenderness on palpation with normal active bowel sounds. Patient does have ileostomy that is present. Exam is unremarkable. Patient is alert and oriented and answering questions appropriately. No neurological deficits noted at this time. Initial diagnostic plan: Sepsis workup, normal saline bolus Results from initial plan were reviewed and interpreted by myself, pertinent positives include: BUN 26, creatinine 1.8, rest of laboratory studies were nonactionable. Urinalysis was positive for 4+ bacteria, 3-5 red blood cells per high-powered field, 10-20 white blood cell high-power field as well as 5-10 squamous cells per high-power field. I reviewed patient's laboratory findings from last night. Her BUN was 22 at that time with a creatinine of 1.1. This x- ray was unremarkable for acute findings. Interventions in the ED: Patient was initially given normal saline bolus for hydration. His blood pressure did respond however is still soft with pressures 80s over 50s at this time. An additional normal saline bolus was ordered as well as 1 g of IV Rocephin for treatment of her urinary tract infection. Patient was made aware of the results and the findings, upon reevaluation patient has remained stable throughout stay, symptoms remained stable. Patient continues to rest comfortably in bed with no signs of acute distress. She remains alert and oriented. Consultation/discussion with other physicians: I have reached out to the hospitalist Dr. Weiss regarding patient's workup findings and presenting complaint. Awaiting return phone call at this time. Family has been updated on workup findings as well. Consultation: Spoke with hospitalist who is agreeable to accept patient for further treatment. Stated patient on the need for admission and she was agreeable at this time. Critical Care Critical Care Time Critical Care Time: No
--- OUTSIDE RECORDS SUMMARY | 2025-02-05 14:46 | XMS_ITS | Encounter Summary ---
Author Organization Healthcare Address [address] [place] [address] Care Team Providers Care Cooker Tender Name Role Phone GabrielTimothy armenta Primary Care Provider [phone] Encounter Details Date Type Department Care Team (Late st Contact Info) Description 01/07/2025 Orders Only [facility] [address] [place] [id number] Shantal Solorio TIP (acute kidney injury) (Primary [...] drink first t mini in the morning (E[employer]-CRANKSHA[employer] STRAIGHTENER) to steady your nerves or to get rid of a hangover? 0 11/15/2023 CAGE Questionnaire Score 0 024 Utilities Answer Date Recorded In the past 12 months has th e [employer], gas, oil, or water company threatened to [...] Nephrology, Bone & Mineral Metabolism [address] [facility], [address] [place] [address] Gutierrez Domínguez MD [address] [place] [address] Scheduled Orders Name Type Priority Associated Diagnoses Orde r Schedule Renal Function Panel, Plasma Lab Routine TIP (acute kidney injury) ([facility]) Expected: 01/07/2025 (Approximate), Expires: 07/08/2026 CBC and Differential Lab Routine TIP (acute kidney injury) ([facility]) Expected: 01/07/2025 (Approximate), Expires: 07/08/2026 Creatinine, Random, Urine Lab Routine TIP (acute kidney injury) ([facility]) Expected: 01/07/2025 (Approximate), Expires: 07/08/2026 Protein, Random, Urine with Creatinine Lab Routine TIP (acute kidney injury) ([facility]) Expected: 01/07/2025 (Approximate), Expires: 07/08/2026 Urinalysis with reflex microscopic (Culture NOT Included) Lab Routine TIP (acute kidney injury) ([facility]) Expected: 01/07/2025 (Approximate), Expires: 07/08/2026 PTH Intact Total Lab Routine TIP (acute kidney injury) ([facility]) Vitamin D insufficiency Expected: 01/07/2025 (Approximate), Expires: 07/08/2026 Vitamin D 25 Hydroxy Lab Routine TIP (acute kidney injury) ([facility]) Vitamin D insufficiency Expected: 01/07/2025 (Approximate), Expires: [...] documented as of this encounter Care Teams Cooker Tender Relationship Specialty Start Date End Date Timothy Granda DO [address] [place] [address] PCP - General 05/25/23 documented as of this encounter
--- OUTSIDE RECORDS SUMMARY | 2025-02-05 14:46 | XMS_ITS ---
Care Plan - [facility] Created on: February 05, 2025 Demetrio Farrah J : 1950 Sex: Female Author Organization [facility] Address [address] [place] [address] Phone Care Team Providers Care Production Administrative Assistant Name Role Phone Tosin VARGAS, Chandra Flores Unavailable [phone] Chel VARGAS, Davidson Unavailable [phone] Timothy Granda Primary Care Provider Unavailabl e
--- OUTSIDE RECORDS SUMMARY | 2025-02-05 14:47 | XMS_ITS | Clinical Summary ---
Author Organization [facility] Address [address] [place] [address] Phone Care Team Providers Care Sliver Lapper Name Role Phone Unavailable Unavailable Conditions or Problems No information available. Medications No information available. Medications Administered No information available. Allergies, Adverse Reactions, Alerts No information available. Results No information available. Plan of Care No information available. Procedures No information available. Vital Signs No information available. Immunizations No information available. Advance Directives No information available.
--- OUTSIDE RECORDS SUMMARY | 2025-02-05 14:47 | XMS_ITS | Clinical Summary ---
Author Organization [facility] , [facility] Address [address] [place] [address] Phone Care Team Providers Care Service Member Name Role Phone Tosin VARGAS, Chandra Flores Unavailable [phone] Davidson Milligan MD Unavailable [phone] Timothy Granda Primary Care Provider Unavailabl e Reason for Visit and Chief Complaint The Chief Complaint is: Left shoulder pain Problems Includes: Problems addressed during this encounter and other active Problems Current Visit Onset Date Resolved Date Provider Conditio n Status Joint Pain Shoulder Left 03/16/2023 Funmi Robles PA-C Active Last Documented On 3 10:30AM ; [facility] Past Visits Onset Date Resolved Date Provider Condition Status Joint Pain Left Knee 03/31/2022 Jesus Espinosa MD Active Last Documented On 2 10:01AM ; [facility] Joint Pain Right Knee 02/12/2019 Timothy dye MD Active Last Documented On 9 10:35AM ; [facility] Joint Pain Hip Right 02/12/2019 Timothy Foster MD Active Last Documented On 9 10:35AM ; [facility] Joint Pain Shoulder 05/29/2018 Bautista christie MD Active Last Documented On 9 10:31AM ; [facility] Plan of Treatment Fall Risk Assessment: [...] Documented On 03/16/2023 11:26AM ; [facility], [facility] she had progressive pain over the last [...] Documented On 03/16/2023 11:26AM ; [facility], [facility] Pending Tests Order Diagnosis Results Due Ordering P rovider Radiology - CT Scan Shoulder Overweight 03/30/23 Bari Robles PA-C Last Documented On 3 11:26AM ; [facility] Instructions to patient Lose weight Last Documented On 3 10:32AM ; [facility], [facility] Assessments Includes: Assessments from this encounter Findings - Overweight - Last Documented On 03/16/2023 11:26AM ; [facility], [facility] left total shoulder - Last Documented On 03/16/2023 11:26AM ; [facility] Instructions Includes: Instructions from this encounter Instructions to patient Lose weight Last Documented On 3 10:32AM ; [facility], [facility] Medical Equipment - Implanted Devices Includes: Current Devices No Medical Equipment Recorded Medications Includes: Medications discussed during this encounter and other current Medications Current Medications (continue as prescribed) Acyclovir 400 MG Oral Tablet 01/27/2024 Provider: Diagnosis: Last Documented On 4 2:44PM By Karen [facility], [facility] oxyCODONE HCl 10 MG Oral Tablet 01/22/2024 Provider: Diagnosis: Last Documented On 4 2:44PM By Karen AMBRIZ [facility] Dicyclomine HCl 10 MG Oral Capsule 01/22/2024 [...] Karen Ornelas ; [facility] DULoxetine HCl 60 MG Oral Capsule Delayed Releas e Particles 01/18/2024 Provider: Diagnosis: Last Documented On 4 2:44PM By Karen Ornelas ; [facility] HYDROmorphone HCl 4 MG Oral Tablet 01/08/2024 Provid er: Diagnosis: Last Documented On 4 2:44PM By Karen Ornelas ; [facility] Fluticasone-Salmeterol 100-5 0 MCG/ACT Inhalation Aerosol Powder Breath Activated 01/08/2024 Provider: Diagnosis: Last Documented On 4 2:44PM By Karen Ornelas ; [facility], [facility] Atorvastatin Calcium 40 MG Oral Tablet 01/08/2024 Pr ovider: Diagnosis: Last Documented On 4 2:44PM By Karen Ornelas ; [facility] Levothyroxine Sodium 25 MCG Oral Tablet 12/31/2023 P dionicioder: Diagnosis: Last Documented On 4 2:44PM By Karen Ornelas ; [facility] Eliquis 5 MG Oral Tablet 12/31/2023 Provider: Diagnosis: Last Documented On 4 2:44PM By Karen Ornelas ; [facility] Atorvastatin Calcium 20 MG Oral Tablet 12/31/2023 Pr ovider: Diagnosis: Last Documented On 4 2:44PM By Karen Ornelas ; [facility] amLODIPine Besylate 5 MG Oral Tablet 12/10/2023 Prov ider: Diagnosis: Last Documented On 4 2:44PM By Karen Ornelas ; [facility], [facility] Albuterol Sulfate 108 (90 Ba se) MCG/ACT Inhalation Aerosol Powder Breath Activated 06/15/2022 Provider: Diagnosis: Last Documented On 3 8:21AM By Merari Parson ; [facility], [facility] Cymbalta 20 MG Oral Capsule Delayed Release Particles 06/15/2022 Provider: Diagnosis: Last Documented On 3 8:21AM By Merari Parson ; [facility], [facility] Estradiol 0.1 MG/GM Vaginal Cream 06/15/2022 Provide r: Diagnosis: Last Documented On 3 9:04AM By Merari Parson ; [facility], [facility] Retin-A 0.1% External Cream 06/15/2022 Provider: Diagnosis: Last Documented On 3 9:03AM By Merari Parson ; [facility], [facility] Nystatin-Triamcinolone 875880-8.1 UNIT/GM-% External C ream 06/15/2022 Provider: Diagnosis: Last Documented On 3 9:02AM By Merari Parson ; [facility], [facility] Triamcinolone Acetonide 0.1% External Cream 06/15/2022 Provider: Diagnosis: Last Documented On 3 8:29AM By Merari Parson ; [facility], [facility] oxyCODONE HCl 10 MG Oral Tablet 06/15/2022 Provider: Diagnosis: Last Documented On 3 8:27AM By Merari Parson ; [facility], [facility] Losartan Potassium 50 MG Oral Tablet 06/15/2022 Prov ider: Diagnosis: Last Documented On 3 8:26AM By Merari Parson ; [facility], [facility] Fluticasone-Salmeterol 250-5 0 MCG/ACT Inhalation Aerosol Powder Breath Activated 06/15/2022 Provider: Diagnosis: Last Documented On 3 8:25AM By Mearri Parson ; [facility], [facility] Diphenoxylate-Atropine 2.5-0.025 MG Oral Tablet 2022 Provider: Diagnosis: Last Documented On 3 8:22AM By Merari Parson ; [facility], [facility] Acyclovir 400 MG Oral Tablet 10/05/2020 Provider: Diagnosis: Last Documented On 1 3:19PM By Adele Trevino ; [facility], [facility] Past Medications on file oxyCODONE HCl 5 MG Oral Tablet 07/19/2022 - 07/29/2022 Provider: Jesus Zimmer MD Diagnosis: Take 1 tablet by mouth every 4-6 hrs for break through pain Last Documented On 3 11:00AM By Jesus Espinosa ; [facility], [facility] Meloxicam 15 MG Oral Tablet 07/03/2022 - 07/17/2022 Pr ovider: Jesus Espinosa MD Diagnosis: once a day Last Documented On 3 8:45AM By Barbara Correa ; [facility], [facility] Ondansetron HCl 4 MG Oral Tablet 06/30/2022 - 07/07/2022 Provider: Jesus Zimmer MD Diagnosis: 1 po q 6h prn nausea Last Documented On 3 1:35PM By Jesus Espinosa ; [facility], [facility] oxyCODONE HCl 5 MG Oral Tablet 06/30/2022 - 07/10/2022 Provider: Jesus Zimmer MD Diagnosis: Take 1 tablet by mouth every 4-6 hrs for break through pain Last Documented On 3 1:35PM By Jesus Espinosa ; [facility], [facility] Acetaminophen 500 MG Oral Tablet 06/30/2022 - 07/14/2022 Provider: Jesus Zimmer MD Diagnosis: Take 2 tablets by mouth every 8 hours Last Documented On 3 1:35PM By Jseus Espinosa ; [facility], [facility] Cefadroxil 500 MG Oral Capsule 06/30/2022 - 07/07/2022 Provider: Jesus Zimmer MD Diagnosis: Take 1 tablet by mouth every 12 hours for 7 days Last Documented On 3 1:35PM By Jesus Espinosa ; [facility], [facility] Aspirin EC 81 MG Oral Tablet Delayed Release 06/30/2022 - 08/11/2022 Provider: Jesus Espinosa MD Diagnosis: Take 1 tablet by mouth every 12 hours for 42 days post op Last Documented On 3 1:35PM By Jesus Espinosa ; [facility] Vitamin D3 50 MCG (1999 [place]) Oral Tablet 06/20/2022 - 07/20/2022 Provider: Diana ABDI Diagnosis: once a day Last Documented On 3 1:03PM By Diana Rosas ; [facility] cloNIDine HCl 0.1 MG Oral Tablet 10/05/2020 - 11/05/19 Provider: Diagnosis: Last Documented On 1 3:16PM By Adele Trevino ; [facility] Atorvastatin Calcium 20 MG O ral Tablet 10/05/2020 - 11/04/2020 Provider: MADI CHAPIN MD Diagnosis: Last Documented On 1 3:18PM By Adele Trevino ; [facility] Medications Administered Includes: Administered Medications from this encounter No Administered Medications Recorded Vital Signs Includes: Vital Signs from this encounter Vital Name 03/16/2023 10:32A Height (in) 61 Weight (lb) 145 Body Mass Index 27.4 Body Surface Area 1.6 Note: hdv Last Documented: On 03/16/2023 10:32A M ; [facility] Results Includes: Results discussed during this encounter [...] Documented On 3 11:26AM ; [facility] Tobacco non-user 02/17/2022 Last Documented On 3 10:32AM ; [facility] Caffeine use 10/05/2020 Last Documented On 3 10:32AM ; [facility] Exercising regularly 10/05/2020 Last Documented On 3 10:32AM ; [facility] No recent change in diet 10/05/2020 Last Documented On 3 10:32AM ; [facility] Not a current smoker. 10/05/2020 Last Documented On 3 10:32AM ; [facility] Not using alcohol 10/05/2020 Last Documented On 3 10:32AM ; [facility] Not using drugs 10/05/2020 Last Documented On 3 10:32AM ; [facility] Non-smoker 10/05/2020 Last Documented On 3 10:32AM ; [facility], [facility] Not a current smoker 05/29/2018 Last Documented On 3 10:32AM ; [facility] No tobacco use 05/29/2018 Last Documented On 3 10:32AM ; [facility], [facility] Smoking status : Former smoker 9 Last Documented On 3 10:32AM ; [facility], [facility] Procedures and Surgical History Includes: Procedures from this encounter Procedures Code Diagnosis Performing Provider Service L ocation Service Date use of tobacco assessment performed 1000F Last Documented On 3 10:32AM ; [facility], [facility] patient screened for future fall risk: documentation of any fall with injury in past year 1100F Last Documented On 3 10:32AM ; [facility], [facility] review of medications documented 1160F Last Documented On 3 10:32AM ; [facility], [facility] an X-ray was performed 22647 Last Documented On 3 10:33AM ; [facility], [facility] an MRI was performed [id number] Last Documented On 3 10:33AM ; [facility], [facility] Surgical History Last Updated Past Surgical History: 03/16/2023 Last Documented On 3 11:26AM ; [facility], [facility] Medical History Includes: Medical History addressed during this encounter Description Last Updated History of Anemia 03/16/2023 Last Documented On 3 11:26AM ; [facility] History of arthritis 03/16/2023 Last Documented On 3 11:26AM ; [facility], [facility] History of History of Blood Clots 2022 Last Documented On 3 11:26AM ; [facility] Anemia 10/05/2020 Last Documented On 3 10:32AM ; [facility], [facility] Arthritis 10/05/2020 Last Documented On 3 10:32AM ; [facility], [facility] History of Arthroscopy 10/05/2020 Last Documented On 3 10:32AM ; [facility], [facility] Recent immunization for flu 10/05/2020 Last Documented On 3 10:32AM ; [facility], [facility] Recent immunization for pneumococcal pne umonia 10/05/2020 Last Documented On 3 10:32AM ; [facility], [facility] Shoulder arthroplasty 10/05/2020 Last Documented On 3 10:32AM ; [facility], [facility] Total hip replacement 10/05/2020 Last Documented On 3 10:32AM ; [facility], [facility] Total knee arthroplasty 10/05/2020 Last Documented On 3 10:32AM ; [facility], [facility] arthroscopy ~total joint replacement ~hi gh cholesterol 05/29/2018 Last Documented On 3 10:32AM ; [facility], [facility] Arthritic joint problems 05/29/2018 Last Documented On 3 10:32AM ; [facility], [facility] History of depression 05/29/2018 Last Documented On 3 10:32AM ; [facility], [facility] History of hepatitis C 05/29/2018 Last Documented On 3 10:32AM ; [facility], [facility] Family History Includes: Family History addressed during this encounter Description Last Updated Family history of cancer 10/05/2020 Last Documented On 3 10:32AM ; [facility] Family history of osteoporosis 1 Last Documented On 3 10:32AM ; [facility] Family history of thromboembolic disease 05/29/2018 Last Documented On 3 10:32AM ; [facility] Review of Systems Includes: Review of [...] Active Last Documented On 06/16/2024 12:48PM ; [facility] Note: joint pain- Major fluoroquinolones Allergy 09/04/2018 Ac tive Last Documented On 5 12:48PM ; [facility] Encounters Encounter Provider Location Date Check-In Time Check-Out Time Diagnosis Physician Specified Funmi Robles PA-C [facility] 03/16/20 23 10:22AM 11:03AM Overweight Insurance Includes: Active Insurance Policies Plan Name Member ID Group # Subscriber Relationship Effect sherman Dates 1 - Medicare Part B [facility] [id number] Farrah Atkinson Self 4 - Unknown 2 - [facility] [id number] Farrah Atkinson Self 05/03/2019 - Unknown Clinical Notes Includes: Clinical Notes from this encounter * Progress note Date Encounter Last Documented by 03/16/2023 Physician Specified Last gilma farrell on 03/16/2023; 11:26 AM, Funmi Robles PA-C; [facility], [facility] Active Problems & Conditions - Joint Pain [...] directed 0 days, 0 refills - Nystatin-Triamcinolone 805593-2.1 UNIT/GM-% External Cream take as directed 0 [...] Care Team - Chandra Leahy MD - COMMUNICATION ASSISTANT
--- NOTE | 2025-02-05 14:48 | ECG_ITS ---
APPROVED REPORT Exam: Resting ECG HR:95 bpm ECG Measurements Heart Rate 95 AXES RI 128 P 44 QRSd 85 QRS 58 QT 373 T 10 QTc 425 Conclusion SINUS RHYTHM NONSPECIFIC ST & T-WAVE ABNORMALITY BORDERLINE ECG UNCONFIRMED REPORT Electronically signed by : ZHANE WOLFE, 02/08/2025 02:21:30
--- OUTSIDE RECORDS SUMMARY | 2025-02-05 14:48 | XMS_ITS | Clinical Summary ---
Author Organization [facility] Address [address], [address] [place] [address] Care Team Providers Care Demonstrator Sewing Techniques Name Role Phone Unavailable Primary Care Provider [...] (ZANAFLEX) 4 MG tablet 03/20/2024 Active CREON 62105-623396 units CPEP delayed release capsule TAKE ONE [...] Type Department Care Team Description 12/08/2024 Telephone [facility], [place] [address] Sharon Paulino MD Surgery Scheduling 11/21/[address] [facility] [address] [address] Wilal Lan RN Care Coordination (Nurse navigator) 11/20/2024 Telephone [facility] [address] [place] [phone] Sharon Paulino MD Surgery Scheduling ( [facility]) 11/05/[address] [facility] [address] [place] [address] [phone] Laisha Galvan MA History of total replacement [...] ID:Not on file Type:Not on file Address: [address]
--- OUTSIDE RECORDS SUMMARY | 2025-02-05 14:48 | XMS_ITS | Clinical Summary ---
Author Organization [facility] Address [address] [place] [address] Phone Care Team Providers Care Respite Coordinator Name Role Phone Tosin VARGAS, Chandra Flores Unavailable [phone] Chel VARGAS, Davidson Unavailable [phone] Timothy Granda Primary Care Provider Unavailabl e Reason for Visit and Chief Complaint INJECTION Problems Includes: Problems addressed during this encounter and other active Problems All Visits Onset Date Resolved Date Provider Condition S tatus Joint Pain Shoulder Left 03/16/2023 Funmi Robles PA-C Active Last Documented On 3 10:30AM ; [facility], [facility] Joint Pain Left Knee 03/31/2022 Jesus giles MD Active Last Documented On 2 10:01AM ; [facility] Joint Pain Right Knee 02/12/2019 Timothy dye MD Active Last Documented On 9 10:35AM ; [facility], [facility] Joint Pain Hip Right 02/12/2019 Timothy Foster MD Active Last Documented On 9 10:35AM ; [facility], [facility] Joint Pain Shoulder 05/29/2018 Bautista christie MD Active Last Documented On 9 10:31AM ; [facility], [facility] Plan of Treatment No Plan of Treatment Recorded Assessments Includes: Assessments from this encounter No Assessments Recorded Medical Equipment - Implanted Devices Includes: Current Devices No Medical Equipment Recorded Medications Includes: Medications discussed during this encounter and other current Medications Current Medications (continue as prescribed) Acyclovir 400 MG Oral Tablet 01/27/2024 Provider: Diagnosis: Last Documented On 4 2:44PM By Karen Ornelas ; [facility] oxyCODONE HCl 10 MG Oral Tablet 01/22/2024 Provider: Diagnosis: Last Documented On 4 2:44PM By Karen Ornelas ; [facility] Dicyclomine HCl 10 MG Oral Capsule 01/22/2024 Provid er: CASTILLO ESPINO II, MD Diagnosis: Last Documented On 4 2:44PM By Karen Ornelas ; [facility] tiZANidine HCl 4 MG Oral Tablet 01/18/2024 Provider: Diagnosis: Last Documented On 4 2:44PM By Karen Ornelas ; [facility] Sulfamethoxazole-Trimethoprim 400-80 MG Oral Tablet Provider: Diagnosis: Last Documented On 4 2:44PM By Karen Ornelas ; [facility] DULoxetine HCl 60 MG Oral Capsule Delayed Releas e Particles 01/18/2024 Provider: Diagnosis: Last Documented On 4 2:44PM By Karen Ornelas ; [facility] HYDROmorphone HCl 4 MG Oral Tablet 01/08/2024 Provid er: Diagnosis: Last Documented On 4 2:44PM By Karen Ornelas ; [facility] Fluticasone-Salmeterol 100-5 0 MCG/ACT Inhalation Aerosol Powder Breath Activated 01/08/2024 Provider: Diagnosis: Last Documented On 4 2:44PM By Karen Ornelas ; [facility] Atorvastatin Calcium 40 MG Oral Tablet 01/08/2024 Pr ovider: Diagnosis: Last Documented On 4 2:44PM By Karen Ornelas ; [facility] Levothyroxine Sodium 25 MCG Oral Tablet 12/31/2023 P rovider: Diagnosis: Last Documented On 4 2:44PM By Karen Ornelas ; [facility] Eliquis 5 MG Oral Tablet 12/31/2023 Provider: Diagnosis: Last Documented On 4 2:44PM By Karen Ornelas ; [facility], [facility] Atorvastatin Calcium 20 MG Oral Tablet 12/31/2023 Pr ovider: Diagnosis: Last Documented On 4 2:44PM By Karen Ornelas ; [facility], [facility] amLODIPine Besylate 5 MG Oral Tablet 12/10/2023 Prov ider: Diagnosis: Last Documented On 4 2:44PM By Karen Ornelas ; [facility], [facility] Albuterol Sulfate 108 (90 Ba se) MCG/ACT Inhalation Aerosol Powder Breath Activated 06/15/2022 Provider: Diagnosis: Last Documented On 3 8:21AM By Merari Parson ; [facility] Cymbalta 20 MG Oral Capsule Delayed Release Particles 06/15/2022 Provider: Diagnosis: Last Documented On 3 8:21AM By Merari Parson ; [facility] Estradiol 0.1 MG/GM Vaginal Cream 06/15/2022 Provide r: Diagnosis: Last Documented On 3 9:04AM By Merari Parson ; [facility] Retin-A 0.1% External Cream 06/15/2022 Provider: Diagnosis: Last Documented On 3 9:03AM By Merari Parson ; [facility] Nystatin-Triamcinolone 616372-1.1 UNIT/GM-% External C ream 06/15/2022 Provider: Diagnosis: Last Documented On 3 9:02AM By Merari Parson ; [facility] Triamcinolone Acetonide 0.1% External Cream 06/15/2022 Provider: Diagnosis: Last Documented On 3 8:29AM By Merari Parson ; [facility] oxyCODONE HCl 10 MG Oral Tablet 06/15/2022 Provider: Diagnosis: Last Documented On 3 8:27AM By Merari Parson ; [facility], [facility] Losartan Potassium 50 MG Oral Tablet 06/15/2022 Prov ider: Diagnosis: Last Documented On 3 8:26AM By Merari Parson ; [facility] Fluticasone-Salmeterol 250-5 0 MCG/ACT Inhalation Aerosol Powder Breath Activated 06/15/2022 Provider: Diagnosis: Last Documented On 3 8:25AM By Merari Parson ; [facility] Diphenoxylate-Atropine 2.5-0.025 MG Oral Tablet 2022 Provider: Diagnosis: Last Documented On 3 8:22AM By Merari Parson ; [facility] Acyclovir 400 MG Oral Tablet 10/05/2020 Provider: Diagnosis: Last Documented On 1 3:19PM By Adele Sawyer [facility] Medications Administered Includes: Administered Medications from [...] Active Last Documented On 06/16/2024 12:48PM ; [facility] Note: joint pain- Major fluoroquinolones Allergy 09/04/2018 Ac tive Last Documented On 5 12:48PM ; [facility] Encounters Encounter Provider Location Date Check-In Time Check-Out Time Diagnosis INJECTION Fab Li PA-C [facility] 04/12/19 24 2:28PM 2:56PM Insurance Includes: Active Insurance Policies Plan Name Member ID Group # Subscriber Relationship Effect sherman Dates 1 - Medicare Part B [facility] [id number] Farrah Atkinson Self 4 - Unknown 2 - [facility] [id number] Farrah Atkinson Self 05/03/2019 - Unknown Clinical Notes Includes: Clinical Notes from this encounter * Progress note Date Encounter Last Documented by 04/12/2023 INJECTION Last documented on 04/12/2023; 3:29 PM, Fab Li PA-C; [facility] Physical Findings HPI: Left shoulder pain, [...]
--- OUTSIDE RECORDS SUMMARY | 2025-02-05 14:48 | XMS_ITS | Encounter Summary ---
Author [facility] Address [address], [address] [place] [address] Care Team Providers Care Carriage Setter Name Role Phone Unavailable Primary Care Provider Unavailabl e Reason for Visit * Reason Onset Date Comments Surgery Scheduling 12/08/2024 Encounter Details Date Type Department Care Team (Late st Contact Info) Description 12/08/2024 Telephone [facility], [place] [address] Sharon Paulino MD [address] [place] [address] [address] [place] [address] Surgery Scheduling Social History Tobacco [...]
--- OUTSIDE RECORDS SUMMARY | 2025-02-05 14:48 | XMS_ITS | Encounter Summary ---
Author Organization [facility] Address [address] [place] [address] Care Team Providers Care Pipe Out Worker Name Role Phone Connor Gomez MD Primary Care Provider [phone] Encounter Details Date Type Department Care Team (Late st Contact Info) Description 01/29/2025 Readmission Management [facility] NURSE CALL [facility] [address] [place] [id number] Bg Shaikh, RN Social History Tobacco [...] and heating? Patient unable to answer 01/26/2025 [facility] - Occupational Stress [...] things needed for daily living? No 01/26/2025 [facility] Utilities Answer Date Recorded In the past 12 months has th [employer] electric, gas, oil, or water company threatened [...] assess 01/26/2025 Family and Community Support Answer Lagn [place] Recorded If for any reason you [...] Patient unable to answer 01/26/2025 Preferred Language Stateless 01/26/2025 Comments No Sex and Gender Information Value Date Recorded Sex Assigned at Not on file Legal Sex Female 10:14 AM EST Gender Identity Not on file Sexual Orientation Not on file documented as of this encounter Miscellaneous Notes * Outreach Note - Bg Shaikh RN - 01/29/2025 8:01 PM EDT Prep Survey Flowsheet Row Responses [facility] facility patient discharged from? [place] Is LACE score less than 10 ? [...] documented as of this encounter Care Teams Pipe Out Worker Relationship Specialty Start Date End Date Connor Gomez MD [address] [place] [address] PCP - General Family Medicine 01/26/25 documented as of this encounter
--- OUTSIDE RECORDS SUMMARY | 2025-02-05 14:48 | XMS_ITS ---
Author Organization [facility] Address [address] [place] [address] Phone Care Team Providers Care Clinical Research Assistant Name Role Phone Tosin VARGAS, Chandra Flores Unavailable [phone] Chel VARGAS, Davidson Unavailable [phone] Timothy Granda Primary Care Provider Unavailabl e [...] Active Last Documented On 3 10:30AM ; [facility], [facility] Joint Pain Left Knee 03/31/2022 Jesus giles MD Active Last Documented On 2 10:01AM ; [facility], [facility] Joint Pain Right Knee 02/12/2019 Timothy dye MD Active Last Documented On 9 10:35AM ; [facility], [facility] Joint Pain Hip Right 02/12/2019 Timothy Foster MD Active Last Documented On 9 10:35AM ; [facility] Joint Pain Shoulder 05/29/2018 Bautista christie MD Active Last Documented On 9 10:31AM ; [facility], [facility] Plan of Treatment Findings Encounter Date Patient screened for future fall risk: documentation of any fall with injury in past year Follow Up with Jesus Espinosa MD 06/16/2024 Last Documented On 5 1:41PM ; [facility] Patient screened for future fall risk: documentation of any fall with injury in past year Follow Up with Chandra Grewal PA-C 01/30/2024 Last Documented On 4 4:58PM ; [facility] Pending Tests Order Diagnosis Results Due Ordering P rovider Radiology - MRI MRI R Knee Derang of medial meniscus due to old tear/inj, right knee 05/27/19 Timothy Foster MD Last Documented On 0 12:04PM ; [facility] Radiology - CT Scan Shoulder Overweight 03/30/23 Bari Robles PA-C Last Documented On 3 11:26AM ; [facility] Referrals To Diagnosis Consult with Orth[facility] Note: REFFERAL TO SHARON Orozco @ [facility] ([phone]) Last Documented On 4 4:58PM ; [facility] Consult with Orthopedic [facility] Note: Dr Sharon [facility] // cc Last Documented On 4 11:37AM ; [facility] Instructions to patient Lose weight Last Documented On 5 12:49PM ; [facility] Lose weight Last Documented On 5 12:50PM ; [facility] Lose weight Last Documented On 4 2:44PM ; [facility] Lose weight Last Documented On 4 2:05PM ; [facility] Lose weight Last Documented On 3 10:32AM ; [facility] Lose weight Last Documented On 3 8:11AM ; [facility] Lose weight Last Documented On 2 10:02AM ; [facility] Lose weight Last Documented On 2 8:00AM ; [facility] Instructions for patient see pcp for bp Last Documented On 0 1:11PM ; [facility] Instructions for patient [...] Documented On 9 1:46PM ; [facility] Instructions for patient to see pcp for bp Last Documented On 9 2:20PM ; [facility] Instructions for patient see pcp for bp Last Documented On 9 2:29PM ; [facility] Instructions for patient see pcp for bp Last Documented On 9 1:12PM ; [facility] Medical Equipment - Implanted Devices Includes: Current and historical Devices No Medical Equipment Recorded Medications Includes: Current and historical Medications Current Medications (continue as prescribed) Acyclovir 400 MG Oral Tablet 01/27/2024 Provider: Diagnosis: Last Documented On 4 2:44PM By Karen Ornelas ; [facility], [facility] oxyCODONE HCl 10 MG Oral Tablet 01/22/2024 Provider: Diagnosis: Last Documented On 4 2:44PM By Karen Ornelas ; [facility] Dicyclomine HCl 10 MG Oral Capsule 01/22/2024 Provid er: CASTILLO ESPINO II, MD Diagnosis: Last Documented On 4 2:44PM By Karen Ornelas ; [facility] tiZANidine HCl 4 MG Oral Tablet 01/18/2024 Provider: Diagnosis: Last Documented On 4 2:44PM By Karen Ornelas ; [facility], [facility] Sulfamethoxazole-Trimethoprim 400-80 MG Oral Tablet Provider: Diagnosis: Last Documented On 4 2:44PM By Karen Ornelas ; [facility], [facility] DULoxetine HCl 60 MG Oral Capsule Delayed Releas e Particles 01/18/2024 Provider: Diagnosis: Last Documented On 4 2:44PM By Karen Ornelas ; [facility] HYDROmorphone HCl 4 MG Oral Tablet 01/08/2024 Provid er: Diagnosis: Last Documented On 4 2:44PM By Karen Ornelas ; [facility], [facility] Fluticasone-Salmeterol 100-5 0 MCG/ACT Inhalation Aerosol Powder Breath Activated 01/08/2024 Provider: Diagnosis: Last Documented On 4 2:44PM By Karen Ornelas ; [facility], [facility] Atorvastatin Calcium 40 MG Oral Tablet 01/08/2024 Pr ovider: Diagnosis: Last Documented On 4 2:44PM By Karen Ornelas ; [facility], [facility] Levothyroxine Sodium 25 MCG Oral Tablet 12/31/2023 P rovider: Diagnosis: Last Documented On 4 2:44PM By Karen Ornelas ; [facility], [facility] Eliquis 5 MG Oral Tablet 12/31/2023 Provider: Diagnosis: Last Documented On 4 2:44PM By Karen Ornelas ; [facility], [facility] Atorvastatin Calcium 20 MG Oral Tablet 12/31/2023 Pr ovider: Diagnosis: Last Documented On 4 2:44PM By Karen Ornelas ; [facility], [facility] amLODIPine Besylate 5 MG Oral Tablet 12/10/2023 Prov ider: Diagnosis: Last Documented On 4 2:44PM By Karen Ornelas ; [facility], [facility] Albuterol Sulfate 108 (90 Ba se) MCG/ACT Inhalation Aerosol Powder Breath Activated 06/15/2022 Provider: Diagnosis: Last Documented On 3 8:21AM By Merari Parson ; [facility], [facility] Cymbalta 20 MG Oral Capsule Delayed Release Particles 06/15/2022 Provider: Diagnosis: Last Documented On 3 8:21AM By Merari Parson ; [facility], [facility] Estradiol 0.1 MG/GM Vaginal Cream 06/15/2022 Provide r: Diagnosis: Last Documented On 3 9:04AM By Merari Parson ; [facility], [facility] Retin-A 0.1% External Cream 06/15/2022 Provider: Diagnosis: Last Documented On 3 9:03AM By Merari Parson ; [facility], [facility] Nystatin-Triamcinolone 716538-4.1 UNIT/GM-% External C ream 06/15/2022 Provider: Diagnosis: Last Documented On 3 9:02AM By Merari Parson ; [facility], [facility] Triamcinolone Acetonide 0.1% External Cream 06/15/2022 Provider: Diagnosis: Last Documented On 3 8:29AM By Merari Parson ; [facility], [facility] oxyCODONE HCl 10 MG Oral Tablet 06/15/2022 Provider: Diagnosis: Last Documented On 3 8:27AM By Merari Parson ; [facility], [facility] Losartan Potassium 50 MG Oral Tablet 06/15/2022 Prov ider: Diagnosis: Last Documented On 3 8:26AM By Merari Parson ; [facility], [facility] Fluticasone-Salmeterol 250-5 0 MCG/ACT Inhalation Aerosol Powder Breath Activated 06/15/2022 Provider: Diagnosis: Last Documented On 3 8:25AM By Merari Parson ; [facility], [facility] Diphenoxylate-Atropine 2.5-0.025 MG Oral Tablet 2022 Provider: Diagnosis: Last Documented On 3 8:22AM By Merari Parson ; [facility], [facility] Acyclovir 400 MG Oral Tablet 10/05/2020 Provider: Diagnosis: Last Documented On 1 3:19PM By Adele Trevino ; [facility], [facility] Past Medications on file Acyclovir 400 MG Oral Tablet 03/12/2023 - 01/30/2024 Richardson greenbergder: Chandra Leahy MD Diagnosis: Last Documented On 4 2:43PM By Karen Ornelas ; [facility], [facility] Eliquis 5 MG Oral Tablet 03/12/2023 - 01/30/2024 Provi keira: Chandra Leahy MD Diagnosis: Last Documented On 4 2:43PM By Karen Ornelas ; [facility], [facility] Diphenoxylate-Atropine 2.5-0.025 MG Oral Tablet 03/09/2023 - 01/30/2024 Provider: Diagnosis: Last Documented On 4 2:43PM By Karen Ornelas ; [facility], [facility] OxyCONTIN 20 MG Oral Tablet ER 12 Hour Abuse-Deterrent 03/09/2023 - 01/30/2024 Provider: Diagnosis: Last Documented On 4 2:43PM By Karen Ornelas ; [facility] Sulfamethoxazole-Trimethopri m 400-80 MG Oral Tablet 03/09/2023 - 01/30/2024 Provider: Diagnosis: Last Documented On 4 2:43PM By Karen Ornelas ; [facility] Potassium Chloride Amy ER 2 0 MEQ Oral Tablet Extended Release 03/01/2023 - 01/30/2024 Provider: MADI CHAPIN MD Diagnosis: Last Documented On 4 2:43PM By Karen Ornelas ; [facility] Levothyroxine Sodium 25 MCG Oral Tablet 03/01/2023 - 01/30/2024 Provider: Chandra Leahy MD Diagnosis: Last Documented On 4 2:43PM By Karen Ornelas ; [facility] amLODIPine Besylate 5 MG Oral Tablet 02/28/2023 - 01/02 Provider: Diagnosis: Last Documented On 4 2:43PM By Karen Ornelas ; [facility], [facility] Cephalexin 500 MG Oral Capsule 02/26/2023 - 01/30/2024 Provider: Diagnosis: Last Documented On 4 2:43PM By Karen Ornelas ; [facility] oxyCODONE HCl 10 MG Oral Tablet 02/23/2023 - Provider: Chandra Leahy MD Diagnosis: Last Documented On 4 2:43PM By Karen Ornelas ; [facility], [facility] oxyCODONE HCl 5 MG Oral Tablet 07/19/2022 - 07/29/2022 Provider: Jesus Zimmer MD Diagnosis: Take 1 tablet by mouth every 4-6 hrs for break through pain Last Documented On 3 11:00AM By Jesus Espinosa ; [facility] Meloxicam 15 MG Oral Tablet 07/03/2022 - 07/17/2022 Pr ovider: Jesus Espinosa MD Diagnosis: once a day Last Documented On 3 8:45AM By Barbara Correa ; [facility], [facility] Ondansetron HCl 4 MG Oral Tablet 06/30/2022 - 07/07/2022 Provider: Jesus Zimmer MD Diagnosis: 1 po q 6h prn nausea Last Documented On 3 1:35PM By Jesus Espinosa ; [facility], [facility] oxyCODONE HCl 5 MG Oral Tablet 06/30/2022 - 07/10/2022 Provider: Jesus Zimmer MD Diagnosis: Take 1 tablet by mouth every 4-6 hrs for break through pain Last Documented On 3 1:35PM By Jesus Espinosa ; [facility], [facility] Acetaminophen 500 MG Oral Tablet 06/30/2022 - 07/14/2022 Provider: Jesus Zmimer MD Diagnosis: Take 2 tablets by mouth every 8 hours Last Documented On 3 1:35PM By Jesus Espinosa ; [facility], [facility] Cefadroxil 500 MG Oral Capsule 06/30/2022 - 07/07/2022 Provider: Jesus Zimmer MD Diagnosis: Take 1 tablet by mouth every 12 hours for 7 days Last Documented On 3 1:35PM By Jesus Espinosa ; [facility], [facility] Aspirin EC 81 MG Oral Tablet Delayed Release 06/30/2022 - 08/11/2022 Provider: Jesus Espinosa MD Diagnosis: Take 1 tablet by mouth every 12 hours for 42 days post op Last Documented On 3 1:35PM By Jesus Espinosa ; [facility], [facility] Vitamin D3 50 MCG (1999 [place]) Oral Tablet 06/20/2022 - 07/20/2022 Provider: Diana ABDI Diagnosis: once a day Last Documented On 3 1:03PM By Diana Rosas ; [facility], [facility] EC-RX Estradiol 0.4% Transdermal Cream 06/15/2022 - Provider: Diagnosis: Last Documented On 3 9:04AM By Merari Parson ; [facility], [facility] Retin-A 0.025% External Cream 06/15/2022 - 06/15/2022 Provider: Diagnosis: Last Documented On 3 9:03AM By Merari Parson ; [facility] Nystatin [id number] UNIT/GM External Cream 06/15/2022 - Provider: Diagnosis: Last Documented On 3 9:03AM By Merari Parson ; [facility] amLODIPine Besylate 10 MG Or al Tablet 02/10/2022 - 01/30/2024 Provider: MADI CHAPIN MD Diagnosis: Last Documented On 4 2:44PM By Karen Ornelas ; [facility] Atorvastatin Calcium 20 MG O ral Tablet 01/30/2022 - 01/30/2024 Provider: AMDI CHAPIN MD Diagnosis: Last Documented On 4 2:44PM By Karen Ornelas ; [facility] cloNIDine HCl 0.1 MG Oral Tablet 01/10/2022 - 01/30/20 24 Provider: Diagnosis: Last Documented On 4 2:44PM By Karen Ornelas ; [facility], [facility] Potassium Chloride Amy ER 2 0 MEQ Oral Tablet Extended Release 11/28/2021 - 01/30/2024 Provider: MADI CHAPIN MD Diagnosis: Last Documented On 4 2:44PM By Karen Ornelas ; [facility], [facility] cloNIDine HCl 0.1 MG Oral Tablet 10/05/2020 - 11/05/19 21 Provider: Diagnosis: Last Documented On 1 3:16PM By Adele Trevino ; [facility], [facility] Fetzima 40mg Oral Tablet 10/05/2020 - 06/15/2022 Provi kiera: Diagnosis: Last Documented On 3 8:29AM By Merari Parson ; [facility], [facility] cloNIDine HCl 0.1 MG Oral Tablet 10/05/2020 - 10/06/19 21 Provider: Diagnosis: Last Documented On 1 3:16PM By Adele Trevino ; [facility], [facility] Acyclovir 400 MG Oral Tablet 10/05/2020 - 10/05/2020 P rovider: Diagnosis: Last Documented On 1 3:19PM By Adele Trevino ; [facility], [facility] Vicodin HP 10-300 MG Oral Tablet 10/05/2020 - 06/16/19 23 Provider: Diagnosis: Last Documented On 3 8:30AM By Merari Parson ; [facility] Atorvastatin Calcium 20 MG Oral Tablet 10/05/2020 - Provider: Diagnosis: Last Documented On 1 3:18PM By Adele Trevino ; [facility] Atorvastatin Calcium 20 MG O ral Tablet 10/05/2020 - 11/04/2020 Provider: MADI CHAPIN MD Diagnosis: Last Documented On 1 3:18PM By Adele Trevino ; [facility] Percocet 7.5-325 MG Oral Tablet 10/07/2019 - Provider: Timothy Foster MD Diagnosis: 1 every 4 - 6 hours prn post op pain Last Documented On 1 3:16PM By Adele Trevino ; [facility] Zofran 4 MG Oral Tablet 09/24/2019 - 10/05/2020 Provid er: Timothy Foster MD Diagnosis: 1 tab every 6 hrs prn pain Last Documented On 1 3:17PM By Adele Trevino ; [facility] Keflex 250 MG Oral Capsule 09/24/2019 - 10/05/2020 Pro vider: Timothy Foster MD Diagnosis: four times a day Last Documented On 1 3:17PM By Adele Trevino ; [facility] Aspirin 325 MG Oral Tablet 09/24/2019 - 10/05/2020 Pro vider: Timothy Foster MD Diagnosis: twice a day Last Documented On 1 3:16PM By Adele Trevino ; [facility] Xarelto 10 MG Oral Tablet 09/24/2019 - 10/05/2020 Prov ider: Timothy Foster MD Diagnosis: once a day for first seven d ays after joint replacement, then transiition to aspirin Last Documented On 1 3:17PM By Adele Trevino ; [facility] Percocet 7.5-325 MG Oral Tablet 09/24/2019 - Provider: Timothy Foster MD Diagnosis: 1 every 4 - 6 hours prn post op pain Last Documented On 3:16PM By Adelemaribel Trevino ; [facility], [facility] Mupirocin 2% External Ointment 07/31/2019 - 10/05/2020 Provider: Timothy Foster MD Diagnosis: take as directed Apply cream twice a day to each nostril five days prior to surgery. Last Documented On 3:17PM By Adele Belinda ; [facility], [facility] [place] 10-325 MG Oral Tablet 04/25/2019 - 10/05/2020 Pr ovider: Timothy Foster MD Diagnosis: [id number] prn post op pain Last Documented On 3:17PM By Adelejudy Trevino ; [facility], [facility] Nystatin [id number] UNIT/GM Exte rnal Cream 01/20/2019 - 10/05/2020 Provider: MADI CHAPIN MD Diagnosis: Last Documented On 3:18PM By Adelemaribel Trevino ; [facility], [facility] Clindamycin-Tretinoin 1.2-0. 025% External Gel 01/20/2019 - 10/05/2020 Provider: MADI CHAPIN MD Diagnosis: Last Documented On 3:19PM By Adelemaribel Trevino ; [facility], [facility] Estradiol 0.025 MG/24HR Saba sdermal Patch Twice Weekly 01/17/2019 - 10/05/2020 Provider: Diagnosis: Last Documented On 3:19PM By Adele Belinda ; [facility], [facility] Lisinopril 5MG Oral Tablet 08/12/2018 - 10/05/2020 Pro vider: MADI CHAPIN MD Diagnosis: Last Documented On 3:18PM By [facility] ; [facility], [facility] oxyCODONE HCl 5MG Oral Tablet 07/22/2018 - 10/05/2020 Provider: Bautista christie MD Diagnosis: 1-2 po q 4-6h prn post op pain Last Documented On 07/06/202 1 3:17PM By Adele Trevino ; [facility] oxyCODONE HCl 5MG Oral Tablet 07/17/2018 - 10/05/2020 Provider: Bautista christie MD Diagnosis: 1-2 po q 4-6h prn post op pain Last Documented On 1 3:17PM By Adele Trevino ; [facility] Zofran 4MG Oral Tablet 07/17/2018 - 10/05/2020 Provide r: Bautista Luis MD Diagnosis: Take 1 tablet every 8 hrs pr n pain Take 1 tablet every 8 hrs prn post op nausea Last Documented On 1 3:17PM By Adelemaribel Trevino ; [facility] Benzoyl Peroxide Wash 5% External Liquid 07/17/2018 - 10/05/2020 Provider: Bautista christie MD Diagnosis: use as directed by Dr. Luis Last Documented On 1 3:17PM By Adele Trevino ; [facility] Acyclovir 400MG Oral Tablet 05/29/2018 - 10/05/2020 Pr ovider: Diagnosis: Last Documented On 1 3:19PM By Adele Trevino ; [facility] Estradiol 1MG Oral Tablet 05/29/2018 - 10/05/2020 Prov ider: Diagnosis: Last Documented On 1 3:18PM By Adele Trevino ; [facility] Lomotil 2.5-0.025MG Oral Tablet 05/29/2018 - Provider: Diagnosis: Last Documented On 1 3:17PM By Adele Trevino ; [facility] Atorvastatin Calcium 20MG Or al Tablet 05/14/2018 - 10/05/2020 Provider: MADI CHAPIN MD Diagnosis: Last Documented On 1 3:18PM By Adele Trevino ; [facility] Nortriptyline HCl 50MG Oral Capsule 05/03/2018 - 10/05 Provider: Diagnosis: Last Documented On 1 3:16PM By Adele Trevino ; [facility] cloNIDine HCl 0.1MG Oral Tablet 05/03/2018 - Provider: Diagnosis: Last Documented On 1 3:16PM By Adele Trevino ; [facility] Furosemide 40MG Oral Tablet 05/01/2018 - 10/05/2020 Pr ovider: MADI CHAPIN MD Diagnosis: Last Documented On 1 3:16PM By Adele Trevino ; [facility] DULoxetine HCl 30MG Oral Cap shashi Delayed Release Particles 04/30/2018 - 10/05/2020 Provider: Diagnosis: Last Documented On 1 3:16PM By Adele Trevino ; [facility] traMADol HCl 50MG Oral Tablet 04/30/2018 - 10/05/2020 Provider: Baldemar Duckworth MD Diagnosis: Last Documented On 1 3:16PM By Adele Trevino ; [facility] Medications Administered Includes: Administered Medications in patient's chart No Administered Medications Recorded Vital Signs Includes: Vital Signs from 02/06/2024 through 02/05/2025 Vital Name 06/16/2024 01:12P Height (in) 62 Weight (lb) 160 Body Mass Index 29.3 Body Surface Area 1.7 Note: jaa Last Documented: On 06/16/2024 1:12PM ; [facility] Results Includes: Results from 02/06/2024 through 02/05/2025 No Results Recorded For Specified Dates History of Present Illness History of Present Illness not supported for this document type No History of Present Illness Recorded Social History Description Last Updated Recent change in diet 01/30/2024 Last Documented On 4 4:58PM ; [facility] Not a current smoker. 01/30/2024 Last Documented On 4 4:58PM ; [facility] Tobacco non-user 02/17/2022 Last Documented On 2 6:54AM ; [facility] Caffeine use 10/05/2020 Last Documented On 1 1:17PM ; [facility] Exercising regularly 10/05/2020 Last Documented On 1 1:17PM ; [facility] No recent change in diet 10/05/2020 Last Documented On 1 1:17PM ; [facility] Not a current smoker. 10/05/2020 Last Documented On 1 1:17PM ; [facility] Not using alcohol 10/05/2020 Last Documented On 1 1:17PM ; [facility], [facility] Not using drugs 10/05/2020 Last Documented On 1 1:17PM ; [facility], [facility] Non-smoker 10/05/2020 Last Documented On 1 1:17PM ; [facility], [facility] Not a current smoker 05/29/2018 Last Documented On 9 9:38AM ; [facility], [facility] No tobacco use 05/29/2018 Last Documented On 9 9:38AM ; [facility] Smoking status : Former smoker 9 Last Documented On 9 9:38AM ; [facility], [facility] Procedures and Surgical History Includes: Procedures from 02/06/2024 through 02/05/2025 Procedures Code Diagnosis Performing Provider Service Location Service Date HIP BILATERAL [id number] Unilateral prima ry osteoarthritis, right hip, Trochanteric bursitis, left hip Jesus Espinosa MD [facility] 06/16/2024 Last Documented On 5 1:32PM ; [facility] Surgical History Last Updated History of History of Arthroscopy 2023 Last Documented On 4 4:58PM ; [facility] History of Previous Fractures 01/30/2024 Last Documented On 4 4:58PM ; [facility] History of total hip replacement 024 Last Documented On 4 4:58PM ; [facility] History of total knee arthroplasty 01/29 Last Documented On 4 4:58PM ; [facility], [facility] Past Surgical History: 03/16/2023 Last Documented On 3 11:26AM ; [facility], [facility] Medical History Includes: Medical History in patient's chart Description Last Updated History of asthma 01/30/2024 Last Documented On 4 4:58PM ; [facility], [facility] History of History of Blood Transfusion 01/30/2024 Last Documented On 4 4:58PM ; [facility] History of Hypertension 01/30/2024 Last Documented On 4 4:58PM ; [facility] History of Anemia 03/16/2023 Last Documented On 3 11:26AM ; [facility] History of arthritis 03/16/2023 Last Documented On 3 11:26AM ; [facility] History of History of Blood Clots 2022 Last Documented On 3 11:26AM ; [facility] Anemia 10/05/2020 Last Documented On 1 1:17PM ; [facility] Arthritis 10/05/2020 Last Documented On 1 1:17PM ; [facility] History of Arthroscopy 10/05/2020 Last Documented On 1 1:17PM ; [facility] Recent immunization for flu 10/05/2020 Last Documented On 1 1:17PM ; [facility] Recent immunization for pneumococcal pne umonia 10/05/2020 Last Documented On 1 1:17PM ; [facility] Shoulder arthroplasty 10/05/2020 Last Documented On 1 1:17PM ; [facility] Total hip replacement 10/05/2020 Last Documented On 1 1:17PM ; [facility] Total knee arthroplasty 10/05/2020 Last Documented On 1 1:17PM ; [facility] arthroscopy ~total joint replacement ~hi gh cholesterol 05/29/2018 Last Documented On 9 9:38AM ; [facility] Arthritic joint problems 05/29/2018 Last Documented On 9 9:38AM ; [facility] History of depression 05/29/2018 Last Documented On 9 9:38AM ; [facility] History of hepatitis C 05/29/2018 Last Documented On 9 9:38AM ; [facility] Family History Includes: Family History in patient's chart Description Last Updated Family history of cancer 10/05/2020 Last Documented On 1 1:17PM ; [facility] Family history of osteoporosis 1 Last Documented On 1 1:17PM ; [facility] Family history of thromboembolic disease 05/29/2018 Last Documented On 9 9:38AM ; [facility] No significant family history maternal- Breast cancer 05/29/2018 Last Documented On 9 9:38AM ; [facility] Review of Systems Review of Systems [...] Active Last Documented On 06/16/2024 12:48PM ; [facility] Note: joint pain- Major fluoroquinolones Allergy 09/04/2018 Ac tive Last Documented On 5 12:48PM ; [facility] Encounters Includes: Encounters from 02/06/2024 through 02/05/2025 Encounter Provider Location Date Check-In Time Check- Out Time Diagnosis Follow Up Jesus Espinosa MD [facility] 5 12:43PM 1:40PM Insurance Includes: Active Insurance Policies Plan Name Member ID Group # Subscriber Relationship Effect sherman Dates 1 - Medicare Part B [facility] [id number] Farrah Atkinson Self 4 - Unknown 2 - [facility] [id number] Farrah Atkinson Self 05/03/2019 - Unknown Clinical Notes Includes: Signed Clinical Notes starting from 03/16/2022 * Progress note Date Encounter Last Documented by 06/16/2024 Follow Up Last documented on 06/16/2024; 1:41 PM, Jesus Espinosa MD; [facility] Active Problems & Conditions - [...] total hip replacement done in 2007 in [place]. She states she is having groin pain [...] directed 0 days, 0 refills - Nystatin-Triamcinolone 218277-4.1 UNIT/GM-% External Cream take as directed 0 [...] Care Team - Chandra Leahy MD - PAYROLL AND BENEFITS ANALYST
--- OUTSIDE RECORDS SUMMARY | 2025-02-05 14:48 | XMS_ITS | Encounter Summary ---
Author Organization [facility] Address [address] [place] [address] Care Team Providers Care Credit Collections Rep Name Role Phone Connor Gomez MD Primary Care Provider [phone]- [phone] Encounter Details Date Type Department Care Team [...] and heating? Patient unable to answer 01/26/2025 [facility] Occupat ional [facility] - Occupational Stress [...] things needed for daily living? No 01/26/2025 [facility] Utilities Answer Date Recorded In the past 12 months has th e [email or web address], gas, oil, or water company threatened to [...] Patient unable to answer 01/26/2025 Preferred Language Indian 01/26/2025 Comments No Sex and Gender Information [...] documented as of this encounter Care Teams Credit Collections Rep Relationship Specialty Start Date End Date Connor Gomez MD [address] [place] [address] PCP - General Family Medicine 01/26/25 documented as of this encounter
--- OUTSIDE RECORDS SUMMARY | 2025-02-05 14:48 | XMS_ITS | Encounter Summary ---
Author Organization [employer] ([place], [place], [place], [place], [place]) Address [address] [place] [address] Care Team Providers Care Geotechnician Name Role Phone 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 Pre Procedure Adult Entered On: 04/28/2019 7:12 EST Performed On: 04/28/2019 7:06 EST by ISAMAR MORRISON RN Height and Weight, Clinical Dosing Height Source : Stated Height Entry Format : [place] Height, Feet : 5 ft(Converted to: 152 cm, 60 Inch) Height, Inches : 2 Inch(Converted to: 0 ft 2 Inch, 5.08 cm) Clinical Height : 157.48 cm Weight Source : Standing scale Weight Entry Format : [place] Clinical Dosing Weight : 85 kg Weight, Pounds : 187 lb Body Surface Area (BSA) : 1.86 m2 Body Mass Index : 34.3 kg/m2 (HI) [place] Body Weight : 50 kg ISAMAR MORRISON [...] ISAMAR MORRISON RN - 04/28/2019 7:06 EST [place] Suicide Severity Rating Scale (C-SSRS) CSSRS Past [...] Obtained From : Patient Primary Language : Venezuelan Preferred Communication Mode : Verbal Communication Barrier [...] Scale Risk Level : 0-24 Low Risk [place] Fall Interventions : Bed in low position, [...] form. Electronically signed by Leslee Olvera Conversion Computer Network Support Specialist Cerner at 07/23/2022 4:25 PM CDT documented in this encounter Plan of Treatment Not on file documented as of this encounter Visit Diagnoses Not on filedocumented in this encounter Care Teams Geotechnician Relationship Specialty Start Date End Date Leslee, Provider Not In The System, [place] [address] PCP - General 04/16/23 documented as of this encounter
--- OUTSIDE RECORDS SUMMARY | 2025-02-05 14:48 | XMS_ITS | Encounter Summary ---
Author Organization [facility] Address [address] [place] [id number] Care Team Providers Care Shale Planer Operator Name Role Phone Connor Gomez MD Primary Care Provider [phone]- [phone] Reason for Visit * Reason Comments Med Refill Encounter Details Date Type Department Care Team (Late st Contact Info) Description 12/22/2021 Refill [facility] [address] [place] [address] Connor Nunez MD [address] [place] [address] Chronic arthritis associated with viral [...] documented as of this encounter Care Teams Shale Planer Operator Relationship Specialty Start Date End Date Connor Gomez MD [facility] [place] [address] PCP - General Family Medicine 01/26/25 documented as of this encounter
--- OUTSIDE RECORDS SUMMARY | 2025-02-05 14:48 | XMS_ITS | Clinical Summary ---
Author Organization [facility] Address [address] [place] [address] Care Team Providers Care Shipper/Receiver Name Role Phone Connor Gomez MD Primary Care Provider [phone]- [phone] Allergies Active Allergy Reactions Criticality Noted Date [...] Daily. Active vitamin D (ERGOCALCIFEROL) 1.25 MG (15686 UT) capsule capsule Take 1 capsule by [...] Patient may need Pain Management referral. Discontinue Holloway and use oxycodone 10mg q6h prn. Discussed with patient will not increase this medicine alf prescription opiate use 03/13/2022 Chronic arthritis associated [...] Department Care Team Description 01/29/2025 Readmission Management [facility] [address] [place] [address] Jamila Shaikh, RN 01/27/2025 Travel 01/26/2025 1:09 AM EDT - 01/29/2025 2:01 PM EDT Hospital Encounter [address] [place] [address] Rayshawn Baldwin MD Mueller, MD David Pendleton, [...] and heating? Patient unable to answer 01/26/2025 [facility] Occupat ional Health - Occupational Stress [...] things needed for daily living? No 01/26/2025 [facility] Utilities Answer Date Recorded In the past 12 months has [employer] electric, gas, oil, or water company threatened [...] Patient unable to answer 01/26/2025 Preferred Language Australian 01/26/2025 Comments No Sex and Gender Information [...] this topic Medical Devices Implanted Type Area [employer] Receiver Device Identifier Shelf Expiration Date Model / Serial / Lot Cmt Bone Simplex/P Full Dose 10/Pk - [id number] Implanted:Qty : 1 on 07/18/2018 by Bautista Luis MD at [facility] Implant Right: Shoulder TRACY RUBEN 09/29/2020 [id number] / / [id number] Stem Hum Univers [place] 6x60mm - [id number] Implanted:Qty : 1 on 07/18/2018 by Bautista Luis MD at [facility] Implant Right: Shoulder ARTHREX 08/30/2022 [id number] / / [id number] Alberto Vaultlock - [id number] Implanted:Qty : 1 on 07/18/2018 by Bautista Luis MD at [facility] Implant Right: Shoulder ARTHREX 12/30/2022 [id number] / / [id number] Hd Hum Univers2 Cocr 58n55ws - [id number] Implanted:Qty : 1 on 07/18/2018 by Bautista Luis MD at [facility] Implant Right: Shoulder ARTHREX 03/01/2022 [id number] / / [id number] Sut Tw 2/0 38in Wht/Blk - [id number] Implanted:Qty : 3 on 07/18/2018 by Bautista Luis MD at [facility] Implant Right: Shoulder ARTHREX [id number] / / Totl Arth Shldr S3 - [id number] Implanted:Qty : 1 on 07/18/2018 by Bautista Luis MD at [facility] Implant Right: Shoulder ARTHREX CAPTOTLSHLD [id number] / / Procedures Procedure Name Priority Date/Time [...] of2 resultswithin the time period is included. [facility] Onbase ECG ORDERABLES Final Result * Potassium (01/28/2025 9:51 PM EDT) Only the most recent of2 resultswithin the time period is included. Potassium 3.8 3.5 - 5.2 mmol/L 01/28/2025 10:10 PM EDT [facility] Blood Venipuncture / Unknown 01/28/2025 9:51 PM EDT 01/28/2025 9:57 PM EDT Jessica Valdovinos DO LAB BLOOD ORDERABLES F inal Result [facility]
[address] [place] [address], * (ABNORMAL) CBC (No Diff) (01/28/2025 10:34 AM EDT) Only the most recent of2 resultswithin the time period is included. WBC 12.20(H) 3.40 - 10.80 10*3/mm3 01/28/2025 11:45 AM EDT [facility] RBC 3.86 3.77 - 5.28 10*6/mm3 01/28/2025 11:45 AM EDT [facility] Hemoglobin 11.6(L) 12.0 - 15.9 g/dL 01/28/2025 11:45 AM EDT [facility] Hematocrit 35.5 34.0 - 46.6 % 01/28/2025 11:45 AM EDT [facility] MCV 92.0 79.0 - 97.0 fL 01/28/2025 11:45 AM EDT [facility] MCH 30.1 26.6 - 33.0 pg 01/28/2025 11:45 AM EDT [facility] MCHC 32.7 31.5 - 35.7 g/dL 01/28/2025 11:45 AM EDT [facility] RDW 13.5 12.3 - 15.4 % 01/28/2025 11:45 AM EDT [facility] RDW-SD 46.2 37.0 - 54.0 fl 01/28/2025 11:45 AM EDT [facility] MPV 9.6 6.0 - 12.0 fL 01/28/2025 11:45 AM EDT [facility] Platelets 301 140 - 450 10*3/mm3 01/28/2025 11:45 AM EDT [facility] Blood Venipuncture / Unknown 01/28/2025 10:34 AM EDT 01/28/2025 11:41 AM EDT Andrew Barkley MD LAB BLOOD ORDERABLES Final R esult [facility]
[address] [place] [address], * (ABNORMAL) Basic Metabolic Panel (01/28/2025 10:34 AM EDT) Only the most recent of2 resultswithin the time period is included. Glucose 117(H) 65 - 99 mg/dL 01/28/2025 12:14 PM EDT [facility] BUN 6.4(L) 8.0 - 23.0 mg/dL 01/28/2025 12:14 PM EDT [facility] Creatinine 0.85 0.57 - 1.00 mg/dL 01/28/2025 12:14 PM EDT [facility] Sodium 139 136 - 145 mmol/L 01/28/2025 12:14 PM EDT [facility] Potassium 3.3(L) 3.5 - 5.2 mmol/L 01/28/2025 12:14 PM EDT [facility] Chloride 103 98 - 107 mmol/L 01/28/2025 12:14 PM EDT [facility] CO2 20.6(L) 22.0 - 29.0 mmol/L 01/28/2025 12:14 PM EDT [facility] Calcium 8.8 8.6 - 10.5 mg/dL 01/28/2025 12:14 PM EDT [facility] BUN/Creatinine Ratio 7.5 7.0 - 25.0 01/28/2025 12:14 PM EDT [facility] Anion Gap 15.4(H) 5.0 - 15.0 mmol/L 01/28/2025 12:14 PM EDT [facility] eGFR 72.4 >60.0 mL/min/1.7 3 01/28/2025 12:14 PM EDT [facility] Blood Venipuncture / Unknown 01/28/2025 10:34 AM EDT 01/28/2025 11:41 AM EDT Narrative [facility] - 01/28/2025 12:14 PM EDT [...] MD LAB BLOOD ORDERABLES Final R esult [facility]
[address] [place] [address], * MRI Brain With Contrast (01/27/2025 1:28 AM EDT) Anatomical Region Laterality Modality Head, Neck N/A Magnetic Resonan ce 01/27/2025 2:00 AM EDT Impressions 01/27/2025 2:05 AM EDT Impression: No pathologic contrast enhancement. 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 Electronically Signed: Jesus Peterson MD 01/27/2025 2:05 AM EDT Workstation ID: [id number] Narrative 01/27/2025 2:05 AM EDT MRI BRAIN [...] MD 01/27/2025 2:05 AM EDT Workstation ID: [id number] Adama Maher MD IMG MRI ORDERABLES Final Result * POC Glucose Once (01/26/2025 5:38 PM EDT) Only the most recent of4 resultswithin the time period is included. Glucose 91 70 - 130 mg/dL 01/26/2025 5:40 PM EDT [facility] Comment:Serial Number: [id number]: [id number] Amber Comment 1 Follow unit protocol 01/26/2025 5:40 PM EDT [facility] Blood 01/26/2025 5:38 PM EDT 01/26/2025 5:40 PM EDT us Andrew Barkley MD POINT OF CARE TEST ORDERABLE S Final Result [facility]
[address] [place] [address], * ECHO COMPLETE W/ DOPPLER AND COLOR [...] - 2.0 mmol/L 01/26/2025 11:33 AM EDT [facility] Comment:Falsely depressed re sults may occur on samples drawn from patients receiving N-Acetylcysteine (NAC) or Metamizole. Blood Venipuncture / Unknown 01/26/2025 10:44 AM EDT 01/26/2025 11:00 AM EDT Maru Martinez APRN LAB BLOOD ORDERABLES Final Result Performing Organization Address City/[facility]/ZIP Co de Phone Number [facility]
[address] [phone] * (ABNORMAL) Hemoglobin A1c (01/26/2025 6:51 AM EDT) Hemoglobin A1C 5.67(H) 4.80 - 5.60 % 01/26/2025 8:56 AM EDT [facility] Blood Structure of right upper limb / Unknown Venipuncture / Unknown 01/26/2025 6:51 AM EDT 01/26/2025 7:01 AM EDT Narrative [facility] - 01/26/2025 8:56 AM EDT Hemoglobin A1C Ranges: Increased Risk for Diabetes 5.7% to 6.4% Diabetes >= 6.5% Diabetic Goal < 7.0% Rayshawn Hercules PA-C LAB BLOOD ORDERABLE S Final Result Performing Organization Address City/[facility]/ZIP Co de Phone Number [facility]
[address] [place] [address], * (ABNORMAL) Vancomycin, Random (01/26/2025 6:51 AM EDT) Vancomycin Random 42.10(HH) 5.00 - 40.00 mcg/mL 01/26/2025 7:53 AM EDT [facility] Blood Structure of right upper limb / Unknown Venipuncture / Unknown 01/26/2025 6:51 AM EDT 01/26/2025 7:01 AM EDT Narrative [facility] - 01/26/2025 7:53 AM EDT Therapeutic Ranges for Vancomycin Vancomycin Random 5.0-40.0 mcg/mL Vancomycin Trough 5.0-20.0 mcg/mL Vancomycin Peak 20.0-40.0 mcg/mL Aline Tavarez PharmD LAB BLOOD ORDERABLES Final R esult [facility]
[address] [place] [address], * EEG AWAKE OR ASLEEP PORTABLE (01/26/2025 6:30 AM EDT) Impressions NEUROLOGY - 01/26/2025 8:58 AM EDT Diffuse cerebral dysfunction of at least mild degree, nonspecific but most commonly seen due to toxic/metabolic cause No ongoing seizures are present This report is transcribed using the Freebee dictation system. Narrative NEUROLOGY - 01/26/2025 8:58 [...] T 1Hr (01/26/2025 3:28 AM EDT) Pathologist [facility] HS Troponin T 22(H) <14 ng/L 01/26/2025 3:57 AM EDT [facility] Troponin T Numeric Delta -1 ng/L 01/26/2025 3:57 AM EDT [facility] Troponin T % Delta -4 Abnormal if >/= 20% 01/26/2025 3:57 AM EDT [facility] Blood Line / Unknown 01/26/2025 3: 28 AM EDT 01/26/2025 3:37 AM EDT Narrative [facility] - 01/26/2025 3:57 AM EDT [...] to an underlying chronic condition. Maru Martinez BAKERY DEMONSTRATOR LAB BLOOD ORDERABLES Final Result [facility]
[address] [place] [address], * ECG 12 Lead QT Measurement (01/26/2025 3:10 AM EDT) [facility] QT Interval 340 ms ECG QTC [...] No significant change was found Confirmed by ADRSHAN KHAN MD ([id number]) on 01/26/2025 8:10:43 AM [...] By: DARSHAN KHAN MD us Maru Martinez BAKERY DEMONSTRATOR ECG ORDERABLES Final Resu lt ECG * (ABNORMAL) Urinalysis, Microscopic Only - Indwelling Urethral Catheter (01/26/2025 2:57 AM EDT) RBC, UA 6-10(A) None Seen, 0-2 /HPF 01/26/2025 3:25 AM EDT [facility] WBC, UA 11-20(A) None Seen, 0-2 /HPF 01/26/2025 3:25 AM EDT [facility] Bacteria, UA None Seen None Seen /HPF 01/26/2025 3:25 AM EDT [facility] Squamous Epithelial Cells, UA 0-2 None Seen, 0-2 /HPF 01/26/2025 3:25 AM EDT [facility] Hyaline Casts, UA None Seen None Seen /LPF 01/26/2025 3:25 AM EDT [facility] Methodology Automated Microscopy 01/26/2025 3:25 AM EDT [facility] Urine (Indwelling Urethral Catheter) Collection / Unknown 01/26/2025 2:57 AM EDT 01/26/2025 3:13 AM EDT us Maru Martinez BAKERY DEMONSTRATOR URINE ORDERABLES Final Res ult [facility]
[address] [place] [address], [place] [phone] * (ABNORMAL) Urinalysis With Microscopic If Indicated (No Culture) - Indwelling Urethral Catheter (01/26/2025 2:57 AM EDT) Color, UA Yellow Yellow, Straw 01/26/2025 3:25 AM EDT [facility] Appearance, UA Clear Clear 01/26/2025 3:25 AM EDT [facility] pH, UA 5.5 5.0 - 8.0 01/26/2025 3:25 AM EDT [facility] Specific [place], UA >1.030(H) 1.005 - 1.030 01/26/2025 3:25 AM EDT [facility] Glucose, UA Negative Negative 01/26/2025 3:25 AM EDT [facility] Ketones, UA Negative Negative 01/26/2025 3:25 AM EDT [facility] Bilirubin, UA Negative Negative 01/26/2025 3:25 AM EDT [facility] Blood, UA Moderate (2+)(A) Negative 01/26/2025 3:25 AM EDT [facility] Protein, UA Trace(A) Negative 01/26/2025 3:25 AM EDT [facility] Leuk Esterase, UA Small (1+)(A) Negative 01/26/2025 3:25 AM EDT [facility] Nitrite, UA Negative Negative 01/26/2025 3:25 AM EDT [facility] Urobilinogen, UA 0.2 E.U./dL 0.2 - 1.0 E.U./dL 01/26/2025 3:25 AM EDT [facility] Urine (Indwelling Urethral Catheter) Collection / Unknown 01/26/2025 2:57 AM EDT 01/26/2025 3:13 AM EDT us Maru Martinez BAKERY DEMONSTRATOR URINE ORDERABLES Final Res ult [facility]
[address] [place] [address], * (ABNORMAL) Urine Drug Screen - Indwelling Urethral Catheter (01/26/2025 2:57 AM EDT) [facility] Signature THC, Screen, Urine Negative Negative 2024 3:27 AM EDT [facility] Phencyclidine (PCP), Urine Negative Negative 01/26/2025 3:27 AM EDT [facility] Cocaine Screen, Urine Negative Negative 01/26/2025 3:27 AM EDT [facility] Methamphetamine, Ur Negative Negative 01/26/2025 3:27 AM EDT [facility] Opiate Screen Negative Negative 01/26/2025 3:27 AM EDT [facility] Amphetamine Screen, Urine Negative Negative 01/26/2025 3:27 AM EDT [facility] Benzodiazepine Screen, Urine Negative Negative 01/26/2025 3:27 AM EDT [facility] Tricyclic Antidepressants Screen Positive(A) Negative 01/26/2025 3:27 AM EDT [facility] Methadone Screen, Urine Negative Negative 01/26/2025 3:27 AM EDT [facility] Barbiturates Screen, Urine Negative Negative 01/26/2025 3:27 AM EDT [facility] Oxycodone Screen, Urine Positive(A) Negative 01/26/2025 3:27 AM EDT [facility] Buprenorphine, Screen, Urine Negative Negative 01/26/2025 3:27 AM EDT [facility] Urine (Indwelling Urethral Catheter) Collection / Unknown 01/26/2025 2:57 AM EDT 01/26/2025 3:13 AM EDT [facility] - 01/26/2025 3:27 AM EDT [...] when unconfirmed results are used. Maru Martinez BAKERY DEMONSTRATOR URINE ORDERABLES Final Res ult Performing Organization Address [facility] de Phone Number [facility]
[address] [place] [address], * Fentanyl, Urine - Indwelling Urethral Catheter (01/26/2025 2:57 AM EDT) Fentanyl, Urine Negative Negative 01/26/2025 3:40 AM EDT [facility] Urine (Indwelling Urethral Catheter) Collection / Unknown 01/26/2025 2:57 AM EDT 01/26/2025 3:13 AM EDT [facility] - 01/26/2025 3:40 AM EDT [...] when unconfirmed results are used. Maru Martinez BAKERY DEMONSTRATOR URINE ORDERABLES Final Res ult Performing Organization Address [facility] Co de Phone Number [facility]
[address] [place] [address], * LSAC Slide Creation (01/26/2025 2:09 AM EDT) Blood Line / Unknown 01/26/2025 2: 09 AM EDT 01/26/2025 2:20 AM EDT Maru Martinez APRN LAB BLOOD ORDER ONLY Final Result Performing Organization Address City/[facility]/ZIP Co de Phone Number [facility]
[address] [place] [address], * TSH Rfx On Abnormal To Free T4 (01/26/2025 2:09 AM EDT) TSH 1.430 0.270 - 4.200 uIU/mL 01/26/2025 2:50 AM EDT [facility] Blood Line / Unknown 01/26/2025 2: 09 AM EDT 01/26/2025 2:20 AM EDT Maru Martinez APRN LAB BLOOD ORDERABLES Final Result Performing Organization Address City/[facility]/ZIP Co de Phone Number [facility]
[address] [place] [address], * Procalcitonin (01/26/2025 2:09 AM EDT) Procalcitonin 0.15 0.00 - 0.25 ng/mL 01/26/2025 2:50 AM EDT [facility] Blood Line / Unknown 01/26/2025 2: 09 AM EDT 01/26/2025 2:20 AM EDT Narrative [facility] - 01/26/2025 2:50 AM EDT [...] Day 4 values are available. Refer to http://www.zyyful-nah-cijrtxnhrd.com Change in PCT <=80% A decrease of [...] severe sepsis or septic shock. Maru Martinez BAKERY DEMONSTRATOR LAB BLOOD ORDERABLES Final Result [facility]
[address] [place] [address], * (ABNORMAL) CBC Auto Differential (01/26/2025 2:09 AM EDT) [facility] Signature WBC 18.88(H) 3.40 - 10.80 10*3/mm3 01/26/2025 2:48 AM EDT [facility] RBC 3.98 3.77 - 5.28 10*6/mm3 01/26/2025 2:48 AM EDT [facility] Hemoglobin 11.6(L) 12.0 - 15.9 g/dL 01/26/2025 2:48 AM EDT [facility] Hematocrit 35.6 34.0 - 46.6 % 01/26/2025 2:48 AM EDT [facility] MCV 89.4 79.0 - 97.0 fL 01/26/2025 2:48 AM EDT [facility] MCH 29.1 26.6 - 33.0 pg 01/26/2025 2:48 AM EDT [facility] MCHC 32.6 31.5 - 35.7 g/dL 01/26/2025 2:48 AM EDT [facility] RDW 13.6 12.3 - 15.4 % 01/26/2025 2:48 AM EDT [facility] RDW-SD 45.1 37.0 - 54.0 fl 01/26/2025 2:48 AM EDT [facility] MPV 9.4 6.0 - 12.0 fL 01/26/2025 2:48 AM EDT [facility] Platelets 411 140 - 450 10*3/mm3 01/26/2025 2:48 AM EDT [facility] Blood Line / Unknown 01/26/2025 2: 09 AM EDT 01/26/2025 2:20 AM EDT Maru Martinez BAKERY DEMONSTRATOR LAB BLOOD ORDERABLES Final Result [facility]
[address] [place] [address], * (ABNORMAL) High Sensitivity Troponin T (01/26/2025 2:09 AM EDT) HS Troponin T 23(H) <14 ng/L 01/26/2025 2:50 AM EDT [facility] Blood Line / Unknown 01/26/2025 2: 09 AM EDT 01/26/2025 2:20 AM EDT Narrative [facility] - 01/26/2025 2:50 AM EDT [...] to an underlying chronic condition. Maru Martinez BAKERY DEMONSTRATOR LAB BLOOD ORDERABLES Final Result [facility]
[address] [place] [address], * (ABNORMAL) Manual Differential (01/26/2025 2:09 AM EDT) Neutrophil % 81.0(H) 42.7 - 76.0 % 01/26/2025 2:48 AM EDT [facility] Lymphocyte % 9.0(L) 19.6 - 45.3 % 01/26/2025 2:48 AM EDT [facility] Monocyte % 3.0(L) 5.0 - 12.0 % 01/26/2025 2:48 AM EDT [facility] Eosinophil % 0.0(L) 0.3 - 6.2 % 01/26/2025 2:48 AM EDT [facility] Basophil % 0.0 0.0 - 1.5 % 01/26/2025 2:48 AM EDT [facility] Bands % 5.0 0.0 - 5.0 % 01/26/2025 2:48 AM EDT [facility] Atypical Lymphocyte % 2.0 0.0 - 5.0 % 01/26/2025 2:48 AM EDT [facility] Neutrophils Absolute 16.24(H) 1.70 - 7.00 10*3/mm3 01/26/2025 2:48 AM EDT [facility] Lymphocytes Absolute 2.08 0.70 - 3.10 10*3/mm3 01/26/2025 2:48 AM EDT [facility] Monocytes Absolute 0.57 0.10 - 0.90 10*3/mm3 01/26/2025 2:48 AM EDT [facility] Eosinophils Absolute 0.00 0.00 - 0.40 10*3/mm3 01/26/2025 2:48 AM EDT [facility] Basophils Absolute 0.00 0.00 - 0.20 10*3/mm3 01/26/2025 2:48 AM EDT [facility] RBC Morphology Normal Normal 01/26/2025 2:48 AM EDT [facility] WBC Morphology Normal Normal 01/26/2025 2:48 AM EDT [facility] Platelet Morphology Normal Normal 01/26/2025 2:48 AM EDT [facility] Blood Line / Unknown 01/26/2025 2: 09 AM EDT 01/26/2025 2:20 AM EDT Maru Martinez APRN LAB BLOOD ORDERABLES Final Result Performing Organization Address [facility] Co de Phone Number [facility]
[address] [place] [address], * aPTT (01/26/2025 2:09 AM EDT) PTT 26.2 22.0 - 39.0 seconds 01/26/2025 2:56 AM EDT [facility] Blood Line / Unknown 01/26/2025 2: 09 AM EDT 01/26/2025 2:20 AM EDT Narrative [facility] - 01/26/2025 2:56 AM EDT PTT = The equivalent PTT values for the therapeutic range of heparin levels at 0.3 to 0.5 U/ml are 60 to 70 seconds. Maru Martinez APRN LAB BLOOD ORDERABLES Final Result Performing Organization Address City/[facility]/ZIP Co de Phone Number [facility]
[address] [place] [address], * Protime-INR (01/26/2025 2:09 AM EDT) Protime 13.9 12.2 - 15.3 Seconds 01/26/2025 2:56 AM EDT [facility] INR 1.01 0.89 - 1.12 01/26/2025 2:56 AM EDT [facility] Blood Line / Unknown 01/26/2025 2: 09 AM EDT 01/26/2025 2:20 AM EDT Maru R Blamer [employer] LAB BLOOD ORDERABLES Final Result [facility]
[address] [place] [address], * Phosphorus (01/26/2025 2:09 AM EDT) Phosphorus 3.6 2.5 - 4.5 mg/dL 01/26/2025 2:50 AM EDT [facility] Blood Line / Unknown 01/26/2025 2: 09 AM EDT 01/26/2025 2:20 AM EDT Maru R Nandomer [employer] LAB BLOOD ORDERABLES Final Result Performing Organization Address City/[facility]/ZIP Co de Phone Number [facility]
[address] [place] [address], [place] [phone] * Magnesium (01/26/2025 2:09 AM EDT) Magnesium 2.1 1.6 - 2.4 mg/dL 01/26/2025 2:50 AM EDT [facility] Blood Line / Unknown 01/26/2025 2: 09 AM EDT 01/26/2025 2:20 AM EDT Maru R Blamer [employer] LAB BLOOD ORDERABLES Final Result Performing Organization Address City/[facility]/ZIP Co de Phone Number [facility]
[address] [place] [address], [place] [phone] * Lipase (01/26/2025 2:09 AM EDT) Lipase 20 13 - 60 U/L 01/26/2025 2:50 AM EDT [facility] Blood Line / Unknown 01/26/2025 2: 09 AM EDT 01/26/2025 2:20 AM EDT Maru Martinez [employer] LAB BLOOD ORDERABLES Final Result Performing Organization Address [facility]/ZIP Co de Phone Number [facility]
[address] [place] [address], * (ABNORMAL) Lactic Acid, Plasma (01/26/2025 2:09 AM EDT) Lactate 2.7(HH) 0.5 - 2.0 mmol/L 01/26/2025 2:45 AM EDT [facility] Comment:Falsely depressed re sults may occur on samples drawn from patients receiving N-Acetylcysteine (NAC) or Metamizole. Blood Line / Unknown 01/26/2025 2: 09 AM EDT 01/26/2025 2:20 AM EDT Maru Martinez [employer] LAB BLOOD ORDERABLES Final Result Performing Organization Address [facility]/ZIP Co de Phone Number [facility]
[address] [place] [address], [place] [phone] * (ABNORMAL) CK (01/26/2025 2:09 AM EDT) Creatine Kinase 206(H) 20 - 180 U/L 01/26/2025 2:50 AM EDT [facility] Blood Line / Unknown 01/26/2025 2: 09 AM EDT 01/26/2025 2:20 AM EDT Maru Martinez BAKERY DEMONSTRATOR LAB BLOOD ORDERABLES Final Result Performing Organization Address City/[facility]/ZIP Co de Phone Number [facility]
[address] [place] [address], * Calcium, Ionized (01/26/2025 2:09 AM EDT) Ionized Calcium 1.15 1.15 - 1.30 mmol/L 01/26/2025 2:22 AM EDT [facility] Blood Line / Unknown 01/26/2025 2: 09 AM EDT 01/26/2025 2:20 AM EDT Maru Martinez APRN LAB BLOOD ORDERABLES Final Result Performing Organization Address City/[facility] Co de Phone Number [facility]
[address] [place] [address], * (ABNORMAL) Lipid Panel (01/26/2025 2:09 AM EDT) Total Cholesterol 209(H) 0 - 200 mg/dL 01/26/2025 2:50 AM EDT [facility] Triglycerides 149 0 - 150 mg/dL 01/26/2025 2:50 AM EDT [facility] HDL Cholesterol 70(H) 40 - 60 mg/dL 01/26/2025 2:50 AM EDT [facility] LDL Cholesterol 113(H) 0 - 100 mg/dL 01/26/2025 2:50 AM EDT [facility] VLDL Cholesterol 26 5 - 40 mg/dL 01/26/2025 2:50 AM EDT [facility] LDL/HDL Ratio 1.56 01/26/2025 2:50 AM EDT [facility] Blood Line / Unknown 01/26/2025 2: 09 AM EDT 01/26/2025 2:20 AM EDT Narrative [facility] - 01/26/2025 2:50 AM EDT [...] using the NIH LDL-C calculation. Maru Martinez BAKERY DEMONSTRATOR LAB BLOOD ORDERABLES Final Result [facility]
[address] [place] [address], * (ABNORMAL) Comprehensive Metabolic Panel (01/26/2025 2:09 AM EDT) [facility] Signature Glucose 154(H) 65 - 99 mg/dL 01/26/2025 2:50 AM EDT [facility] BUN 20.1 8.0 - 23.0 mg/dL 01/26/2025 2:50 AM EDT [facility] Creatinine 1.30(H) 0.57 - 1.00 mg/dL 01/26/2025 2:50 AM EDT [facility] Sodium 142 136 - 145 mmol/L 01/26/2025 2:50 AM EDT [facility] Potassium 3.9 3.5 - 5.2 mmol/L 01/26/2025 2:50 AM EDT [facility] Chloride 107 98 - 107 mmol/L 01/26/2025 2:50 AM EDT [facility] CO2 21.1(L) 22.0 - 29.0 mmol/L 01/26/2025 2:50 AM EDT [facility] Calcium 9.0 8.6 - 10.5 mg/dL 01/26/2025 2:50 AM EDT [facility] Total Protein 6.9 6.0 - 8.5 g/dL 01/26/2025 2:50 AM EDT [facility] Albumin 4.0 3.5 - 5.2 g/dL 01/26/2025 2:50 AM EDT [facility] ALT (SGPT) 19 1 - 33 U/L 01/26/2025 2:50 AM EDT [facility] AST (SGOT) 30 1 - 32 U/L 01/26/2025 2:50 AM EDT [facility] Alkaline Phosphatase 120(H) 39 - 117 U/L 01/26/2025 2:50 AM EDT [facility] Total Bilirubin 0.4 0.0 - 1.2 mg/dL 01/26/2025 2:50 AM EDT [facility] Globulin 2.9 gm/dL 01/26/2025 2:50 AM T [facility] Comment:Calculated Result A/G Ratio 1.4 g/dL 01/26/2025 2:50 AM [facility] BUN/Creatinine Ratio 15.5 7.0 - 25.0 01/26/2025 2:50 AM T [facility] Anion Gap 13.9 5.0 - 15.0 mmol/L 01/26/2025 2:50 AM [facility] eGFR 43.5(L) >60.0 mL/min/1.7 3 01/26/2025 2:50 AM [facility] Blood Line / Unknown 01/26/2025 2: 09 AM EDT 01/26/2025 2:20 AM EDT [facility] - 01/26/2025 2:50 AM EDT [...] BLOOD ORDERABLES Final Result Performing Organization Address [facility] Co de Phone Number [facility]
[address] [place] [address], * Blood Culture - Blood, Blood, Port (01/26/2025 2:00 AM EDT) Only the most recent of2 resultswithin the time period is included. Blood Culture No growth at 5 days 02/04/2025 12:48 PM EST [facility] Blood (Blood, Port) Port / Unknown 01/26/2025 2:00 AM EDT 01/26/2025 3:10 AM EDT Maru Martinez APRN MICROBIOLOGY - GENERAL ORD ERABLES Edited Result - Final Performing Organization Address [facility] Co de Phone Number [facility]
[address] [place] [address], * CT Angiogram Head w AI Analysis [...] MD 01/26/2025 1:54 AM EDT Workstation ID: [id number] Narrative 01/26/2025 1:[address] ANGIOGRAM [...] MD 01/26/2025 1:54 AM EDT Workstation ID: [id number] us Maru Martinez BAKERY DEMONSTRATOR IMG CT ORDERABLES Final Re sult * [...] MD 01/26/2025 1:54 AM EDT Workstation ID: [id number] Narrative 01/26/2025 1:[address] ANGIOGRAM [...] MD 01/26/2025 1:54 AM EDT Workstation ID: [id number] us Maru Martinez BAKERY DEMONSTRATOR IMG CT ORDERABLES Final Re sult * CT Head Without Contrast (01/26/2025 1:31 AM EDT) Anatomical Region Laterality Modality Head N/A Computed Tomogra phy 01/26/2025 1:45 AM EDT Impressions 01/26/2025 1:46 AM EDT Impression: No acute intracranial abnormality. Electronically Signed: Jesus Peterson MD 01/26/2025 1:46 AM EDT Workstation ID: [id number] Narrative 01/26/2025 1:[address] HEAD [...] MD 01/26/2025 1:46 AM EDT Workstation ID: [id number] Maru Martinez BAKERY DEMONSTRATOR IMG CT ORDERABLES Final Re sult * IMAGING SCANNED (01/26/2025) Only the most recent of7 resultswithin the time period is included. Anatomical Region Laterality Modality Radiographic Tammy ging Result [facility] IMG DIAGNOSTIC IMAGING ORDERA BLES Final Result * LABS SCANNED (01/26/2025) Result [facility] LAB BLOOD ORDERABLES Final Re [...] C Genotype (12/15/2021 11:55 AM EDT) Pathologist [facility] Hepatitis C Genotype Comment [facility] Comment: Specimen has insufficient hepatitis C virus RNA to obtain genotyping results. This genotyping assay should only be used for known HCV positive patients with HCV RNA levels above 1000 IU/mL. Please note Comment [facility] Comment: This test was developed and its performance characteristics determined by [facility]. It has not been cleared or approved by the U.S. Food and Drug Administration. The FDA has determined that such clearance or approval is not necessary. This test is used for clinical purposes. It should not be regarded as investigational or for research. Blood 12/15/2021 11:5 5 AM EDT 12/16/2021 Narrative [facility] ([facility]) - 12/21/2021 8:08 PM EDT Performed at: [address] [place] [address] [id number] Barbering Teacher: Genna Davenport MD, Phone: [phone] Patient Fasting: Y Connor Nunez MD LAB BLOOD ORDERABLES Fin al Result [facility] ([facility]) [address] [place] [address], [place] [phone] [facility] [address] [place] [address], [place] [phone] * SCANNED - MAMMO (08/23/2021) Anatomical Region Laterality Modality Other Connor Nunez MD CHART REVIEW TABS Fin al Result from Last 3 Months or Most Recently Relevant to Health Maintenance Insurance MEDICARE A & B Member Subscriber Plan / Payer (Ef fective 2013-Present) Name:Farrah Atkinson Member ID:[id number] Relation to Subscriber:Self Name:Farrah Atkinson Subscriber ID:[id number] Payer ID:[id number] Group ID:Not on file Type:Not on file Address: [facility] [id number] [address] MEDICARE SUPPLEMENT Advance Directives * CPR [...] Of Support Discussed With: Patient Care Teams Shipper/Receiver Relationship Specialty Start Date End Date Connor Gomez MD [address] [place] [address] PCP - General Family Medicine 01/26/25
--- OUTSIDE RECORDS SUMMARY | 2025-02-05 14:48 | XMS_ITS | Encounter Summary ---
Author Organization [employer] ([place], [place], [place], [place], [place]) Address [address] [place] [address] Care Team Providers Care Bilingual Account Manager Name Role Phone [facility], Provider Not In The System Primary Care Provider Unavailable Encounter Details Date Type Department Care Team (Late st Contact Info) Description 04/28/[address] [facility] Family Medicine [facility] [place] [address] ProviderJean-Claude MD [facility] [place], [place] [id number] Social History Tobacco Use Types Packs/Day Years Used Date Smoking Tobacco: Never Assessed Comments Unknown Sex and Gender Information Value Date Recorded Sex Assigned at Not on file Legal Sex Female 5:42 PM CDT Gender Identity Not on file Sexual Orientation Not on file documented as of this encounter Miscellaneous Notes * Cerner Conversion Note - Historical ProviderMD - 04/28/2019 8:29 AM SUPERVISOR FISH BAIT PROCESSING Pain Assessment Entered On: 04/28/2019 9:06 EST [...] on filedocumented in this encounter Care Teams Bilingual Account Manager Relationship Specialty Start Date End Date Leslee, Provider Not In The System, [place] [address] PCP - General 04/16/23 documented as of this encounter
--- OUTSIDE RECORDS SUMMARY | 2025-02-05 14:48 | XMS_ITS | Encounter Summary ---
Author Organization Healthcare Address [address] [place] [address] Care Team Providers Care Mattress Specialist Name Role Phone Timothy Granda DO Primary Care Provider [phone] Sadia Campo VALVE FITTER Unavailable Unavailable Encounter Details Date Type Department Care Team (Late st Contact Info) Description 07/24/2023 Lab Requisition [facility] [address] [place] [address] Miky Coleman MD [address] [place] [address] Encounter for general adult medical [...] drink first t mini in the morning (EYE-KILN DOOR BUILDER) to steady your nerves or to get [...] 07/20/2025 10:40 AM EDT Office Visit Professional [facility] [address], [address] [place] [address] Gutierrez Domínguez MD [address] [place] [phone] documented as of this encounter Procedures [...] MICROBIOLOGY - GEN ERAL ORDERABLES Final Result [facility] [address] [place] [address] documented in this encounter Visit Diagnoses Diagnosis [...] documented as of this encounter Care Teams Mattress Specialist Relationship Specialty Start Date End Date Timothy Granda DO [address] [place] [address] PCP - General 05/25/23 Sadia Campo, [place] [address] Pulp Piler Consumer Recruiter 08/03/22 06/21/24 documented as of this encounter
--- OUTSIDE RECORDS SUMMARY | 2025-02-05 14:48 | XMS_ITS ---
Author Organization [facility] Address [address] [id number] Care Team Providers Care Claim Clinician Name Role Phone Timothy Granda DO Primary Care Provider [phone] Hepatitis C Program Status:Paused (Paused) Start date:08/03/2022 Enrollment date:08/03/2022 Enrollment reason:HCV Continued Care and Services Coordination
--- OUTSIDE RECORDS SUMMARY | 2025-02-05 14:48 | XMS_ITS | Encounter Summary ---
Author Organization [facility] Address [address] [place] [address] Care Team Providers Care Oil Well Cable Tool Driller Name Role Phone Connor Gomez MD Primary Care Provider [phone] Encounter Details Date Type Department Care Team [...] and heating? Patient unable to answer 01/26/2025 [facility] - Occupational Stress [...] needed for daily living? No 01/26/2025 [facility] Utilities Answer Date Recorded In the past 12 months has th e [place], gas, oil, or water company threatened to [...] Patient unable to answer 01/26/2025 Preferred Language Argentine 01/26/2025 Comments No Sex and Gender Information [...] documented as of this encounter Care Teams Oil Well Cable Tool Driller Relationship Specialty Start Date End Date Connor Gomez MD [address] [place] [address] PCP - General Family Medicine 01/26/25 documented as of this encounter
--- OUTSIDE RECORDS SUMMARY | 2025-02-05 14:48 | XMS_ITS | Encounter Summary ---
Author Organization [employer] ([place], [place], [place], [place], [place]) Address [address] [place] [address] Care Team Providers Care Lot Technician Name Role Phone Sj, Provider Not In The System Primary Care Provider Unavailable Encounter Details Date Type Department Care Team (Late st Contact Info) Description 04/28/2019 Transcribed Document [facility] [place] [facility] [place] [address] ProviderJean-Claude MD [address] [place] [address] Social History Tobacco Use Types [...] - Historical ProviderMD - 04/28/2019 8:05 AM DECKHAND [facility] Main OR IntraOp Summary Primary Physician: MADISON OSPINA MD-ORT Finalized Date/Time: 04/28/19 08:39:15 Pt. Name: MOISE ATKINSON D.O.B./Sex: 1950 Female Med Rec #: [id number] Physician: AMDISON OSPINA MD-ORT Financial #: [id number] Pt. Type: O Room/Bed: Admit/Disch: 04/28/19 05:30:00 - Institution: [facility] Intra Case Attendance Entry 1 Entry 2 Entry 3 Case Attendee MADISON OSPINA MD-ORT WICKER, KAREN KIM, ARIA WATERS RN Role Performed Surgeon/Proceduralist, MANAGER SAS/Nurse Him Specialist Reformatory Attendant, First First Time In 04/28/19 07:39:00 04/28/19 [...] [facility] IntraOp Case Attendance Audit 04/28/19 08:34:51 Service Delivery Supervisor: LONGGA Modifier: LONGGA 1 <+> Time Out 1 <*> Procedure Knee Arthroscopy 2 <+> Time Out 2 <*> Procedure Knee Arthroscopy 3 <+> Time Out 3 <*> Procedure Knee Arthroscopy 4 <+> Time Out 4 <*> Procedure Knee Arthroscopy 5 <+> Time Out 5 <*> Procedure Knee Arthroscopy 04/28/19 08:07:14 Service Delivery Supervisor: LONGGA Modifier: LONGGA <+> 1 Time In [...] [facility] IntraOp Case Times Audit 04/28/19 08:34:50 Service Delivery Supervisor: LONGGA Modifier: LONGGA <+> 1 Out Room Time <+> 1 Stop Time 04/28/19 08:31:56 Service Delivery Supervisor: LONGGA Modifier: LONGGA <+> 1 Stop Time [...] IntraOp Departure from OR Audit 04/28/19 08:32:27 Service Delivery Supervisor: EMBER Modifier: LONGGA 1 <*> Patient Transport [...] RN 04/28/19 08:15:47 [facility] IntraOp General Case Ambulance Dispatcher 1 Case Information OR OR 05 SJE Case Level 1 Room Verified Yes Wound Class I - Clean Specialty SN Orthopedic Anesthesia Type General ASA Class 3 Diagnosis Preop Diagnosis PATELLAR CHONDROMALACIA RIGHT KNEE Postop Same As Preop No Postop Diagnosis DICTATED BY Mary Last Modified By: ARIA MELCHOR RN 04/28/19 08:15:39 [facility] IntraOp General Case Data Audit 04/28/19 08:15:39 Service Delivery Supervisor: EMBER Modifier: LONGGA <+> 1 ASA Class [...] Entry 1 Medication/Irrigant epinephrine 30mg/30ml vial - [id number] Route of 3ML/3000ML OF NS Administration IRRIGATION [...] [facility] IntraOp Patient Positioning Audit 04/28/19 08:17:49 Service Delivery Supervisor: LONGGA Modifier: LONGGA 1 <*> Procedure Knee [...] Assessment WDL Prep Agents Chloraprep Prep by ARAI MELCHOR RN Hair Removal Methods No hair [...] [facility] IntraOp Surgical Procedures Audit 04/28/19 08:31:50 Service Delivery Supervisor: LONGGA Modifier: LONGGA 1 <*> Procedure Knee Arthroscopy 1 <+> Stop 04/28/19 08:27:35 Service Delivery Supervisor: LONGGA Modifier: LONGGA 1 <*> Procedure Knee Arthroscopy 1 <*> Additional Procedure Description RIGHT KNEE ARTHROSCOPY FOR RETROPATELLAR CHONDROPLASTY AND PARTIAL MENISCECTOMY 04/28/19 08:21:54 Service Delivery Supervisor: LONGGA Modifier: LONGGA 1 <*> Procedure Knee Arthroscopy 1 <*> Additional Procedure Description LEFT KNEE ARTHROSCOPY FOR RETROPATELLAR CHONDROPLASTY AND PARTIAL MENISCECTOMY SJE IntraOp Temp Regulation Devices Entry 1 Temp Regulation Temperature Forced Air Warming Regulation Device device Temperature 4765 Regulation Device Serial/Unit Number Temperature Upper body Regulation Site Temperature MOISE MANE, MANAGER SAS Regulation Device Applied by Last Modified By: [...] 08:31:38 [facility] IntraOp Tourniquet Audit 04/28/19 08:31:38 Service Delivery Supervisor: EMBER Modifier: EMBER <+> 1 Stop Time Case Comments <None> Finalized By: ARIA MELCHOR, RN Document Signatures Signed By: ARIA MELCHOR RN 04/28/19 08:39 Electronically signed by May [facility] Conversion Tack Puller Cerner at 07/23/2022 4:21 PM CDT documented in this encounter Plan of Treatment Not on file documented as of this encounter Visit Diagnoses Not on filedocumented in this encounter Care Teams Lot Technician Relationship Specialty Start Date End Date Deejay, Provider Not In The System, [place] [address] PCP - General 04/16/23 documented as of this encounter
--- OUTSIDE RECORDS SUMMARY | 2025-02-05 14:49 | XMS_ITS | Encounter Summary ---
Author Organization [employer] ([place], [place], [place], [place], [place]) Address [address] [place] [address] Care Team Providers Care Test Driver Name Role Phone [facility], Provider Not In The System Primary Care Provider Unavailable Encounter Details Date Type Department Care Team (Late st Contact Info) Description 04/28/2019 Transcribed Document [facility] Family Medicine [facility] [place] [address] ProviderJean-Claude MD [address] [place], [place] [id number] Social History Tobacco Use Types Packs/Day Years Used Date Smoking Tobacco: Never Assessed Comments Unknown Sex and Gender Information Value Date Recorded Sex Assigned at Not on file Legal Sex Female 5:42 PM CDT Gender Identity Not on file Sexual Orientation Not on file documented as of this encounter Miscellaneous Notes * Cerner Conversion Note - Historical ProviderMD - 04/28/2019 8:05 AM COMMISSION BROKER [facility] Main OR PostOp Summary Primary Physician: MADISON OSPINA MD-ORT Finalized Date/Time: 04/28/19 10:18:29 Pt. Name: MOISE ATKINSON/Sex: 1950 Female Med Rec #: [id number] Physician: MADISON OSPINA MD-ORT Financial #: [id number] Pt. Type: O Room/Bed: Admit/Disch: 04/28/19 05:30:00 - Institution: [facility] Main OR PostOp Case Times Entry 1 In PACU II 04/28/19 09:36:00 Ready for PACU II 04/28/19 10:15:00 Discharge Discharge from PACU 04/28/19 10:15:00 II Last Modified By: Shanel Conrad SPENCER 04/28/19 10:18:24 Finalized By: Shanel Conrad, RN Document Signatures Signed By: Shanel Conrad RN 04/28/19 10:18 Electronically signed by May [facility] Conversion Warehouse Shipper Cerner at 07/23/2022 4:27 PM CDT documented in this encounter Plan of Treatment Not on file documented as of this encounter Visit Diagnoses Not on filedocumented in this encounter Care Teams Test Driver Relationship Specialty Start Date End Date [facility], Provider Not In The System, [place] [address] PCP - General 04/16/23 documented as of this encounter
--- OUTSIDE RECORDS SUMMARY | 2025-02-05 14:49 | XMS_ITS | Encounter Summary ---
Author Organization [employer] ([place], [place], [place], [place], [place]) Address [address] [place] [address] Care Team Providers Care Missile Mechanic Name Role Phone [facility], Provider Not In The System Primary Care Provider Unavailable Encounter Details Date Type Department Care Team (Late st Contact Info) Description 04/28/2019 Transcribed Document [facility] [place] [address] [place] [address] ProviderJean-Claude MD [address] [place] [address] Social History Tobacco Use Types [...] - Historical ProviderMD - 04/28/2019 10:01 AM CHILD MONITOR [place] [id number] MOISE ATKINSON :1950 Visit Time:04/28/2019 What to do next Your Diagnosis Pain in unspecified knee, Pain in unspecified knee Instructions From Your Care Team No driving or legal decision for 24 hours after anesthesia. may advance diet as tolerated. May take Hurley 10-325mg 1 tablet by mouth every 4-6 [...] EST Comments Appointment has been made Where: [address] [facility] [address] [place] [address]- Medications What How Much When Instructions Next [...] activities are safe for you. ??? Take nevt-nlq-isigivf and prescription medicines only as told by [...] 06/25/2001 Document Revised: 11/02/2017 Document Reviewed: 11/02/2017 [employer] Patient Education ?? 2019 [employer] Knee Arthroscopy, Care After Refer to [...] activities are safe for you. ??? Perform fkcmt-oh-sqvuif exercises only as directed by your health [...] 10/06/2005 Document Revised: 08/18/2016 Document Reviewed: 03/15/2015 [employer] Patient Education ?? 2018 [employer]. acetaminophen and hydrocodone (a SEET a MIN oh fen and ladonna droe KOE done) Hycet, Lorcet, Hurley, Verdrocet, Vicodin, Xodol, Zamicet What is the [...] may report side effects to FDA at 1-779-JBV-4714. What other drugs will affect acetaminophen and [...] affect acetaminophen and hydrocodone, including prescription and xwdd-pea-bzcenra medicines, vitamins, and herbal products. Not all [...] to ensure that the information provided by [employer]. ('[employer]') is accurate, up-to-date, and complete, but no guarantee is made to that effect. Drug information contained herein may be time sensitive. [employer] information has been compiled for use by healthcare practitioners and consumers in the [place] and therefore [employer] does not warrant that uses outside of the [place] are appropriate, unless specifically indicated otherwise. [employer] drug information does not endorse drugs, diagnose patients or recommend therapy. [employer] drug information is an informational resource designed [...] effective or appropriate for any given patient. [employer] does not assume any responsibility for any aspect of healthcare administered with the aid of information [employer] provides. The information contained herein is not intended to cover all possible uses, directions, precautions, warnings, drug interactions, allergic reactions, or adverse effects. If you have questions about the drugs you are taking, check with your doctor, nurse or pharmacist. Copyright 7522-2673 [employer]. Version: 15.02. Revision Date: 02/04/2018. Emergency Awareness [...] Assistance with quitting is available by contacting 9-885-GVVJ-NOW. This is a free resource providing counseling, [...] was given the opportunity to ask questions. Patient/Steeler Name: Patient/Steeler Signature: Relationship to Patient: Clinician/Hospital Steeler Signature: Date: documented in this encounter Plan of Treatment Not on file documented as of this encounter Visit Diagnoses Not on filedocumented in this encounter Care Teams Missile Mechanic Relationship Specialty Start Date End Date [facility], Provider Not In The System, [place] [address] PCP - General 04/16/23 documented as of this encounter
--- OUTSIDE RECORDS SUMMARY | 2025-02-05 14:49 | XMS_ITS | Encounter Summary ---
Author Organization [employer] ([place], [place], [place], [place], [place]) Address [address] [place] [address] Care Team Providers Care Yarn Handler Name Role Phone [facility], Provider Not In The System Primary Care Provider Unavailable Encounter Details Date Type Department Care Team (Late st Contact Info) Description 04/28/2019 Transcribed Document [facility] [facility] [address] [place] [address] ProviderJean-Claude MD [address] [place] [address] Social History Tobacco Use Types [...] - Historical ProviderMD - 04/28/2019 9:51 AM PATIENT SAFETY SITTER [place] [id number] MOISE ATKINSON :1950 Visit Time:04/28/2019 What to do next Your Diagnosis Pain in unspecified knee, Pain in unspecified knee Instructions From Your Care Team No driving or legal decision for 24 hours after anesthesia. may advance diet as tolerated. May take [place] 10-325mg 1 tablet by mouth every 4-6 [...] Within 2 to 3 days Where: [address] [facility] [address] [place] [address]- Medications What How Much When Instructions Next [...] activities are safe for you. ??? Take vvzc-cys-zixlzqw and prescription medicines only as told by [...] 06/25/2001 Document Revised: 11/02/2017 Document Reviewed: 11/02/2017 [employer] Patient Education ?? 2019 [employer] Knee Arthroscopy, Care After Refer to [...] activities are safe for you. ??? Perform nmqnz-we-ohkqwp exercises only as directed by your health [...] 10/06/2005 Document Revised: 08/18/2016 Document Reviewed: 03/15/2015 [employer] Patient Education ?? 2018 uTaP. acetaminophen and hydrocodone (a SEET a MIN oh fen and ladonna droe KOE done) Hycet, Lorcet, [place], Verdrocet, Vicodin, Xodol, Zamicet What is the [...] may report side effects to FDA at 9-727-CNX-5238. What other drugs will affect acetaminophen and [...] affect acetaminophen and hydrocodone, including prescription and qkhq-afg-fxjbbwg medicines, vitamins, and herbal products. Not all [...] to ensure that the information provided by [employer] ('[employer]') is accurate, up-to-date, and complete, but no guarantee is made to that effect. Drug information contained herein may be time sensitive. [employer] information has been compiled for use by healthcare practitioners and consumers in the [place] and therefore [employer] does not warrant that uses outside of the [place] are appropriate, unless specifically indicated otherwise. [employer] drug information does not endorse drugs, diagnose patients or recommend therapy. [employer] drug information is an informational resource designed [...] effective or appropriate for any given patient. [employer] does not assume any responsibility for any aspect of healthcare administered with the aid of information [employer] provides. The information contained herein is not intended to cover all possible uses, directions, precautions, warnings, drug interactions, allergic reactions, or adverse effects. If you have questions about the drugs you are taking, check with your doctor, nurse or pharmacist. Copyright 8752-2658 [employer]. Version: 15.02. Revision Date: 02/04/2018. Emergency Awareness [...] Assistance with quitting is available by contacting 7-529-AILU-NOW. This is a free resource providing counseling, [...] was given the opportunity to ask questions. Patient/Deboning Team Leader Name: Patient/Deboning Team Leader Signature: Relationship to Patient: Clinician/Hospital Deboning Team Leader Signature: Date: documented in this encounter Plan of Treatment Not on file documented as of this encounter Visit Diagnoses Not on filedocumented in this encounter Care Teams Yarn Handler Relationship Specialty Start Date End Date Deejay, Provider Not In The System, [place] [address] PCP - General 04/16/23 documented as of this encounter
--- OUTSIDE RECORDS SUMMARY | 2025-02-05 14:49 | XMS_ITS | Encounter Summary ---
Author Organization [employer] ([place], [place], [place], [place], [place]) Address [address] [place] [address] Care Team Providers Care Circulating Nurse Name Role Phone [facility], Provider Not In The System Primary Care Provider Unavailable Encounter Details Date Type Department Care Team (Late st Contact Info) Description 04/28/2019 Transcribed Document [facility] [place] [facility] [place] [address] ProviderJean-Claude MD [address] [place], [place] [id number] Social History Tobacco Use Types Packs/Day Years Used Date Smoking Tobacco: Never Assessed Comments Unknown Sex and Gender Information Value Date Recorded Sex Assigned at Not on file Legal Sex Female 5:42 PM CDT Gender Identity Not on file Sexual Orientation Not on file documented as of this encounter Miscellaneous Notes * Cerner Conversion Note - Historical ProviderMD - 04/28/2019 8:05 AM ELECTRICAL SYSTEMS DESIGNER ADI Main OR PACU Summary Primary Physician: MADISON OSPINA MD-ORT Finalized Date/Time: 04/28/19 09:40:55 Pt. Name: MOISE ATKINSON/Sex: 1950 Female Med Rec #: [id number] Physician: MADISON OSPINA MD-ORT Financial #: [id number] Pt. Type: O Room/Bed: Admit/Disch: 04/28/19 05:30:00 - Institution: [facility] [place] PACU Case Times Entry 1 In PACU I 04/28/19 08:38:00 Ready for PACU 04/28/19 09:33:00 Discharge Discharge from PACU 04/28/19 09:33:00 I Last Modified By: Eduarda Patel Rn Patient Care Bedside 04/28/19 09:40:12 [facility] Main OR PACU Case Times Audit 04/28/19 09:40:12 Stewardesses Teacher: SADE Modifier: SADE <+> 1 Ready for PACU Discharge <+> 1 Discharge from PACU I Finalized By: Eduarda Patel Rn Patient Care Bedside Document Signatures Signed By: Eduarda Patel Rn Patient Care Bedside 04/28/19 09:40 documented in this encounter Plan of Treatment Not on file documented as of this encounter Visit Diagnoses Not on filedocumented in this encounter Care Teams Circulating Nurse Relationship Specialty Start Date End Date [facility], Provider Not In The System, [place] [address] PCP - General 04/16/23 documented as of this encounter
--- OUTSIDE RECORDS SUMMARY | 2025-02-05 14:49 | XMS_ITS | Clinical Summary ---
Author Organization [facility] Address [address] [place] [address] Phone Care Team Providers Care Acquisitions Analyst Name Role Phone Tosin VARGAS, Chandra Flores Unavailable [phone] Chel VARGAS, Davidson Unavailable [phone] Timothy Granda Primary Care Provider Unavailabl e Reason for Visit and Chief Complaint The Chief Complaint is: L hip pain Problems Includes: Problems addressed during this encounter and other active Problems All Visits Onset Date Resolved Date Provider Condition S tatus Joint Pain Shoulder Left 03/16/2023 Funmi Robles PA-C Active Last Documented On 3 10:30AM ; [facility] Joint Pain Left Knee 03/31/2022 Jesus giles MD Active Last Documented On 2 10:01AM ; [facility] Joint Pain Right Knee 02/12/2019 Timothy dye MD Active Last Documented On 9 10:35AM ; [facility] Joint Pain Hip Right 02/12/2019 Timothy Foster MD Active Last Documented On 9 10:35AM ; [facility] Joint Pain Shoulder 05/29/2018 Bautista christie MD Active Last Documented On 9 10:31AM ; [facility] Plan of Treatment - Patient screened for future fall risk: documentation of any fall with injury in past year - Last Documented On 06/16/2024 1:41PM ; [facility] Fall Risk Assessment: This patient [...] - Last Documented On 06/16/2024 1:41PM ; [facility] Instructions to patient Lose weight Last Documented On 12:49PM ; [facility] Lose weight Last Documented On 12:50PM ; [facility] Assessments Includes: Assessments from this [...] - Last Documented On 06/16/2024 1:41PM ; [facility] Instructions Includes: Instructions from this encounter Instructions to patient Lose weight Last Documented On 5 12:49PM ; [facility] Lose weight Last Documented On 5 12:50PM ; [facility] Medical Equipment - Implanted Devices Includes: Current Devices No Medical Equipment Recorded Medications Includes: Medications discussed during this encounter and other current Medications Current Medications (continue as prescribed) Acyclovir 400 MG Oral Tablet 01/27/2024 Provider: Diagnosis: Last Documented On 4 2:44PM By Karen Sawyer [facility] oxyCODONE HCl 10 MG Oral Tablet 01/22/2024 Provider: Diagnosis: Last Documented On 4 2:44PM By Karen Ornelas ; [facility] Dicyclomine HCl 10 MG Oral Capsule 01/22/2024 Provid er: CASTILLO ESPINO II, MD Diagnosis: Last Documented On 4 2:44PM By Karen Ornelas ; [facility] tiZANidine HCl 4 MG Oral Tablet 01/18/2024 Provider: Diagnosis: Last Documented On 4 2:44PM By Karen Ornelas ; [facility] Sulfamethoxazole-Trimethoprim 400-80 MG Oral Tablet Provider: Diagnosis: Last Documented On 4 2:44PM By Karen Ornelas ; [facility] DULoxetine HCl 60 MG Oral Capsule Delayed Releas e Particles 01/18/2024 Provider: Diagnosis: Last Documented On 4 2:44PM By Karen Ornelas ; [facility] HYDROmorphone HCl 4 MG Oral Tablet 01/08/2024 Provid er: Diagnosis: Last Documented On 4 2:44PM By Karen Ornelas ; [facility] Fluticasone-Salmeterol 100-5 0 MCG/ACT Inhalation Aerosol Powder Breath Activated 01/08/2024 Provider: Diagnosis: Last Documented On 4 2:44PM By Karen Ornelas ; [facility] Atorvastatin Calcium 40 MG Oral Tablet 01/08/2024 Pr ovider: Diagnosis: Last Documented On 4 2:44PM By Karen Ornelas ; [facility] Levothyroxine Sodium 25 MCG Oral Tablet 12/31/2023 P rovider: Diagnosis: Last Documented On 4 2:44PM By Karen Ornelas ; [facility] Eliquis 5 MG Oral Tablet 12/31/2023 Provider: Diagnosis: Last Documented On 4 2:44PM By Karen Ornelas ; [facility] Atorvastatin Calcium 20 MG Oral Tablet 12/31/2023 Pr ovider: Diagnosis: Last Documented On 4 2:44PM By Karen Ornelas ; [facility] amLODIPine Besylate 5 MG Oral Tablet 12/10/2023 Prov ider: Diagnosis: Last Documented On 4 2:44PM By Karen Ornelas ; [facility] Albuterol Sulfate 108 (90 Ba se) MCG/ACT Inhalation Aerosol Powder Breath Activated 06/15/2022 Provider: Diagnosis: Last Documented On 3 8:21AM By Merari Parson ; [facility] Cymbalta 20 MG Oral Capsule Delayed Release Particles 06/15/2022 Provider: Diagnosis: Last Documented On 3 8:21AM By Merari Parson ; [facility] Estradiol 0.1 MG/GM Vaginal Cream 06/15/2022 Provide r: Diagnosis: Last Documented On 3 9:04AM By Merari Parson ; [facility] Retin-A 0.1% External Cream 06/15/2022 Provider: Diagnosis: Last Documented On 3 9:03AM By Merari Parson ; [facility] Nystatin-Triamcinolone 181780-1.1 UNIT/GM-% External C ream 06/15/2022 Provider: Diagnosis: Last Documented On 3 9:02AM By Merari Parson ; [facility] Triamcinolone Acetonide 0.1% External Cream 06/15/2022 Provider: Diagnosis: Last Documented On 3 8:29AM By Merari Parson ; [facility] oxyCODONE HCl 10 MG Oral Tablet 06/15/2022 Provider: Diagnosis: Last Documented On 3 8:27AM By Merari Parson ; [facility] Losartan Potassium 50 MG Oral Tablet 06/15/2022 Prov ider: Diagnosis: Last Documented On 3 8:26AM By Merari Parson ; [facility] Fluticasone-Salmeterol 250-5 0 MCG/ACT Inhalation Aerosol Powder Breath Activated 06/15/2022 Provider: Diagnosis: Last Documented On 3 8:25AM By Merair Parson ; [facility] Diphenoxylate-Atropine 2.5-0.025 MG Oral Tablet 2022 Provider: Diagnosis: Last Documented On 3 8:22AM By Merari Parson ; [facility] Acyclovir 400 MG Oral Tablet 10/05/2020 Provider: Diagnosis: Last Documented On 1 3:19PM By Adele Trevino ; [facility] Past Medications on file oxyCODONE HCl 5 MG Oral Tablet 07/19/2022 - 07/29/2022 Provider: Jesus Zimmer MD Diagnosis: Take 1 tablet by mouth every 4-6 hrs for break through pain Last Documented On 3 11:00AM By Jesus Espinosa ; [facility] Meloxicam 15 MG Oral Tablet 07/03/2022 - 07/17/2022 Pr ovider: Jesus Espinosa MD Diagnosis: once a day Last Documented On 3 8:45AM By Barbara Correa ; [facility] Ondansetron HCl 4 MG Oral Tablet 06/30/2022 - 07/07/2022 Provider: Jesus Zimmer MD Diagnosis: 1 po q 6h prn nausea Last Documented On 3 1:35PM By Jesus Espinosa ; [facility] oxyCODONE HCl 5 MG Oral Tablet 06/30/2022 - 07/10/2022 Provider: Jesus Zimmer MD Diagnosis: Take 1 tablet by mouth every 4-6 hrs for break through pain Last Documented On 3 1:35PM By Jesus Espinosa ; [facility] Acetaminophen 500 MG Oral Tablet 06/30/2022 - 07/14/2022 Provider: Jesus Zimmer MD Diagnosis: Take 2 tablets by mouth every 8 hours Last Documented On 3 1:35PM By Jesus Espinosa ; [facility] Cefadroxil 500 MG Oral Capsule 06/30/2022 - 07/07/2022 Provider: Jesus Zimmer MD Diagnosis: Take 1 tablet by mouth every 12 hours for 7 days Last Documented On 3 1:35PM By Jesus Espinosa ; [facility] Aspirin EC 81 MG Oral Tablet Delayed Release 06/30/2022 - 08/11/2022 Provider: Jesus Espinosa MD Diagnosis: Take 1 tablet by mouth every 12 hours for 42 days post op Last Documented On 3 1:35PM By Jesus Sawyer [facility] Vitamin D3 50 MCG (1999 [place]) Oral Tablet 06/20/2022 - 07/20/2022 Provider: Diana ABDI Diagnosis: once a day Last Documented On 3 1:03PM [facility] cloNIDine HCl 0.1 MG Oral Tablet 10/05/2020 - 11/05/19 Provider: Diagnosis: Last Documented On 1 3:16PM By Adele Sawyer [facility] Atorvastatin Calcium 20 MG O ral Tablet 10/05/2020 - 11/04/2020 Provider: MADI CHAPIN MD Diagnosis: Last Documented On 1 3:18PM By Adele Sawyer [facility] Medications Administered Includes: Administered Medications from this encounter No Administered Medications Recorded Vital Signs Includes: Vital Signs from this encounter Vital Name 06/16/2024 01:12P Height (in) 62 Weight (lb) 160 Body Mass Index 29.3 Body Surface Area 1.7 Note: ethel Last Documented: On 06/16/2024 1:12PM ; [facility] Results Includes: Results discussed during [...] total hip replacement done in 2007 in [place]. She states she is having groin pain [...] 01/30/2024 Last Documented On 5 12:49PM ; [facility] Not a current smoker. 01/30/2024 Last Documented On 5 12:49PM ; [facility] Tobacco non-user 02/17/2022 Last Documented On 5 12:49PM ; [facility] Caffeine use 10/05/2020 Last Documented On 5 12:49PM ; [facility], [facility] Exercising regularly 10/05/2020 Last Documented On 5 12:49PM ; [facility], [facility] No recent change in diet 10/05/2020 Last Documented On 5 12:49PM ; [facility], [facility] Not a current smoker. 10/05/2020 Last Documented On 5 12:49PM ; [facility] Not using alcohol 10/05/2020 Last Documented On 5 12:49PM ; [facility] Not using drugs 10/05/2020 Last Documented On 5 12:49PM ; [facility], [facility] Non-smoker 10/05/2020 Last Documented On 5 12:49PM ; [facility], [facility] Not a current smoker 05/29/2018 Last Documented On 5 12:49PM ; [facility], [facility] No tobacco use 05/29/2018 Last Documented On 5 12:49PM ; [facility] Smoking status : Former smoker 9 Last Documented On 5 12:49PM ; [facility], [facility] Procedures and Surgical History Includes: Procedures from this encounter Procedures Code Diagnosis Performing Provider Service Location Service Date HIP BILATERAL [address] Unilateral prima ry osteoarthritis, right hip, Trochanteric bursitis, left hip Jesus Espinosa MD [facility] 06/16/2024 Last Documented On 5 1:32PM ; [facility], [facility] use of tobacco assessment performed 1000F Last Documented On 5 12:49PM ; [facility], [facility] patient screened for future fall risk: documentation of any fall with injury in past year 1100F Last Documented On 5 12:49PM ; [facility] review of medications documented 1160F Last Documented On 5 12:49PM ; [facility] an X-ray was performed 57339 Last Documented On 5 12:49PM ; [facility], [facility] an MRI was performed 90811 Last Documented On 5 12:49PM ; [facility] Surgical History Last Updated History of History of Arthroscopy 2023 Last Documented On 5 12:48PM ; [facility] History of Previous Fractures 01/30/2024 Last Documented On 5 12:48PM ; [facility] History of total hip replacement 024 Last Documented On 5 12:48PM ; [facility] History of total knee arthroplasty 01/29 Last Documented On 5 12:48PM ; [facility] Past Surgical History: 03/16/2023 Last Documented On 5 12:48PM ; [facility] Medical History Includes: Medical History addressed during this encounter Description Last Updated History of asthma 01/30/2024 Last Documented On 5 12:48PM ; [facility] History of History of Blood Transfusion 01/30/2024 Last Documented On 5 12:48PM ; [facility] History of Hypertension 01/30/2024 Last Documented On 5 12:48PM ; [facility] History of History of Blood Clots 2022 Last Documented On 5 12:48PM ; [facility] Anemia 10/05/2020 Last Documented On 5 12:48PM ; [facility] Arthritis 10/05/2020 Last Documented On 5 12:48PM ; [facility], [facility] Recent immunization for flu 10/05/2020 Last Documented On 5 12:48PM ; [facility] Recent immunization for pneumococcal pne umonia 10/05/2020 Last Documented On 5 12:48PM ; [facility], [facility] arthroscopy ~total joint replacement ~hi gh cholesterol 05/29/2018 Last Documented On 5 12:48PM ; [facility], [facility] Arthritic joint problems 05/29/2018 Last Documented On 5 12:48PM ; [facility] History of depression 05/29/2018 Last Documented On 5 12:48PM ; [facility], [facility] History of hepatitis C 05/29/2018 Last Documented On 5 12:48PM ; [facility], [facility] Family History Includes: Family History addressed during this encounter Description Last Updated Family history of cancer 10/05/2020 Last Documented On 5 12:48PM ; [facility], [facility] Family history of osteoporosis Last Documented On 5 12:48PM ; [facility], [facility] Family history of thromboembolic disease 05/29/2018 Last Documented On 5 12:48PM ; [facility], [facility] No significant family history maternal- Breast cancer 05/29/2018 Last Documented On 5 12:48PM ; [facility], [facility] Review of Systems Includes: Review [...] Active Last Documented On 06/16/2024 12:48PM ; [facility] Note: joint pain- Major fluoroquinolones Allergy 09/04/2018 Ac tive Last Documented On 5 12:48PM ; [facility] Encounters Encounter Provider Location Date Check-In Time Check- Out Time Diagnosis Follow Up Jesus Espinosa MD [facility] 5 12:43PM 1:40PM Insurance Includes: Active Insurance Policies Plan Name Member ID Group # Subscriber Relationship Effect sherman Dates 1 - Medicare Part B [facility] [id number] Farrah Atkinson Self 4 - Unknown 2 - [employer] [id number] Farrah Atkinson Self 05/03/2019 - Unknown Clinical Notes Includes: Clinical Notes from this encounter * Progress note Date Encounter Last Documented by 06/16/2024 Follow Up Last documented on 06/16/2024; 1:41 PM, Jesus Espinosa MD; [facility] Active Problems & Conditions - [...] total hip replacement done in 2007 in [place]. She states she is having groin pain [...] directed 0 days, 0 refills - Nystatin-Triamcinolone 642321-2.1 UNIT/GM-% External Cream take as directed 0 [...] Care Team - Chandra Leahy MD - THERMODYNAMICS PROFESSOR
--- OUTSIDE RECORDS SUMMARY | 2025-02-05 14:49 | XMS_ITS | Encounter Summary ---
Author Organization [employer] ([place], [place], [place], [place], [place]) Address [address] [place] [address] Care Team Providers Care Meter Technician Name Role Phone [facility], Provider Not In The System Primary Care Provider Unavailable Encounter Details Date Type Department Care Team (Late st Contact Info) Description 04/28/2019 Transcribed Document [facility] Medicine [address] [place] [address] ProviderJean-Claude MD [address], [place] [id number] Social History Tobacco Use Types Packs/Day Years Used Date Smoking Tobacco: Never Assessed Comments Unknown Sex and Gender Information Value Date Recorded Sex Assigned at Not on file Legal Sex Female 5:42 PM CDT Gender Identity Not on file Sexual Orientation Not on file documented as of this encounter Miscellaneous Notes * Cerner Conversion Note - Historical ProviderMD - 04/28/2019 8:05 AM 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 Name: MOISE ATKINSON/Sex: 1950 Female Med Rec #: [id number] Physician: MADISON OSPINA MD-ORT Financial #: [id number] Pt. Type: O Room/Bed: Admit/Disch: 04/28/19 05:30:00 - Institution: [facility] PreOp Case Times Entry 1 In Preop 04/28/19 05:40:00 Ready for Holding n/a Room Patient Ready for 04/28/19 07:15:00 Surgery Patient Out of Preop 04/28/19 07:36:00 Patient Out of n/a Holding Room Last Modified By: ISAMAR MORRISON RN 04/28/19 09:32:08 David PreOp Case Times Audit 04/28/19 09:32:08 Medical Record Coder: [email or web address] Modifier: [email or web address] <+> 1 Patient Out of Preop Finalized By: ISAMAR MORRISON, RN Document Signatures Signed By: ISAMAR MORRISON RN 04/28/19 09:32 Electronically signed by May [facility] Conversion Dividend Deposit Entry Clerk Cerner at 07/23/2022 4:31 PM CDT documented in this encounter Plan of Treatment Not on file documented as of this encounter Visit Diagnoses Not on filedocumented in this encounter Care Teams Meter Technician Relationship Specialty Start Date End Date [facility], Provider Not In The System, [place] [address] PCP - General 04/16/23 documented as of this encounter
--- OUTSIDE RECORDS SUMMARY | 2025-02-05 14:49 | XMS_ITS | Referral Summary ---
Author Organization [employer] ([place], [place], [place], [place], [place]) Address [address] [place] [address] Care Team Providers Care Subscription Clerk Name Role Phone [facility], Provider Not [...] Date Dereje rded Speak language other than Ecuadorean at home Not on file 04/12/2023 Want [...] of Treatment Not on file Care Teams Subscription Clerk Relationship Specialty Start Date End Date [facility], Provider Not In The System, [place] [address] PCP - General 04/16/23
--- OUTSIDE RECORDS SUMMARY | 2025-02-05 14:49 | XMS_ITS | Encounter Summary ---
Author Organization [employer] [facility] [facility] Address [address], [address] [place] [address] Care Team Providers Care Clip Loading Machine Feeder Name Role Phone Unavailable Primary Care Provider Unavailabl e Reason for Visit * Reason Onset Date Comments Surgery Scheduling 10/10/2024 Encounter Details Date Type Department Care Team (Late st Contact Info) Description 10/10/2024 Telephone [facility] [address] [place], [place] [id number] Sharon Paulino MD [address] [place] [address] [address] [place] [address] Surgery Scheduling Social History Tobacco [...]
--- OUTSIDE RECORDS SUMMARY | 2025-02-05 14:49 | XMS_ITS | Encounter Summary ---
Author Organization [employer] ([place], [place], [place], [place], [place]) Address [address] [place] [address] Care Team Providers Care Retail Performance Specialist Name Role Phone [facility], Provider Not In The System Primary Care Provider Unavailable Encounter Details Date Type Department Care Team (Late st Contact Info) Description 04/28/2019 Transcribed Document [facility] Family Medicine [facility] [place] [address] ProviderJean-Claude MD [address] [place] [address] Social History Tobacco Use Types [...] - Historical ProviderMD - 04/28/2019 8:29 AM 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
--- OUTSIDE RECORDS SUMMARY | 2025-02-05 14:49 | XMS_ITS | Clinical Summary ---
Author Organization [employer] ([place], [place], [place], [place], [place]) Address [address] [place] [address] Care Team Providers Care Business Continuity Global Director Name Role Phone Sj, Provider Not In [...] Date Dereje rded Speak language other than Greek at home Not on file 04/12/2023 Want [...] - 1-dose 75+ series) 09/26/2026 Care Teams Business Continuity Global Director Relationship Specialty Start Date End Date [facility], Provider Not In The System, [place] [address] PCP - General 04/16/23
--- OUTSIDE RECORDS SUMMARY | 2025-02-05 14:49 | XMS_ITS | Clinical Summary ---
Author Organization [facility] , [facility] Address [address] [place] [address] Phone Care Team Providers Care Personal Consultant Name Role Phone Tosin VARGAS, Chandra Flores Unavailable [phone] Chel VARGAS, Davidson Unavailable [phone] Timothy Granda Primary Care Provider Unavailabl e Reason for Visit and Chief Complaint The Chief Complaint is: Left shoulder pain Problems Includes: Problems addressed during this encounter and other active Problems All Visits Onset Date Resolved Date Provider Condition S tatus Joint Pain Shoulder Left 03/16/2023 Funmi Robles PA-C Active Last Documented On 3 10:30AM ; [facility] Joint Pain Left Knee 03/31/2022 Jesus giles MD Active Last Documented On 2 10:01AM ; [facility] Joint Pain Right Knee 02/12/2019 Timothy dye MD Active Last Documented On 9 10:35AM ; [facility] Joint Pain Hip Right 02/12/2019 Timothy Foster MD Active Last Documented On 9 10:35AM ; [facility] Joint Pain Shoulder 05/29/2018 Bautista christie MD Active Last Documented On 9 10:31AM ; [facility] Plan of Treatment Fall Risk [...] - Last Documented On 05/01/2023 3:50PM ; [facility], [facility] This is a very complex situation [...] - Last Documented On 05/01/2023 3:50PM ; [facility], [facility] Instructions to patient Lose weight Last Documented On 2:05PM ; [facility] Assessments Includes: Assessments from this encounter Findings - Overweight - Last Documented On 05/01/2023 3:50PM ; 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 Patient has severe pain and significant loss of function despite modification of activities utilization of anti-inflammatories. - Last Documented On 05/01/2023 3:50PM ; [facility] She is also status post a right total shoulder replacement done by me several years ago which seems to be per her report functioning well. - Last Documented On 05/01/2023 3:50PM ; [facility] Instructions Includes: Instructions from this encounter Instructions to patient Lose weight Last Documented On 4 2:05PM ; [facility] Medical Equipment - Implanted Devices Includes: Current Devices No Medical Equipment Recorded Medications Includes: Medications discussed during this encounter and other current Medications Current Medications (continue as prescribed) Acyclovir 400 MG Oral Tablet 01/27/2024 Provider: Diagnosis: Last Documented On 4 2:44PM By Karen Ornelas ; [facility] oxyCODONE HCl 10 MG Oral Tablet 01/22/2024 Provider: Diagnosis: Last Documented On 4 2:44PM By Karen Ornelas ; [facility] Dicyclomine HCl 10 MG Oral Capsule 01/22/2024 Provid er: CASTILLO ESPINO II, MD Diagnosis: Last Documented On 4 2:44PM By Karen AMBRIZ [facility] tiZANidine HCl 4 MG Oral Tablet 01/18/2024 Provider: Diagnosis: Last Documented On 4 2:44PM By Karen AMBRIZ [facility] Sulfamethoxazole-Trimethoprim 400-80 MG Oral Tablet Provider: Diagnosis: Last Documented On 4 2:44PM By Karen AMBRIZ [facility], [facility] DULoxetine HCl 60 MG Oral Capsule Delayed Releas e Particles 01/18/2024 Provider: Diagnosis: Last Documented On 4 2:44PM By Karen Ornelas ; [facility], [facility] HYDROmorphone HCl 4 MG Oral Tablet 01/08/2024 Provid er: Diagnosis: Last Documented On 4 2:44PM By Karen Ornelas ; [facility] Fluticasone-Salmeterol 100-5 0 MCG/ACT Inhalation Aerosol Powder Breath Activated 01/08/2024 Provider: Diagnosis: Last Documented On 4 2:44PM By Karen Ornelas ; [facility] Atorvastatin Calcium 40 MG Oral Tablet 01/08/2024 Pr ovider: Diagnosis: Last Documented On 4 2:44PM By Karen Ornelas ; [facility], [facility] Levothyroxine Sodium 25 MCG Oral Tablet 12/31/2023 P rodennisder: Diagnosis: Last Documented On 4 2:44PM By Karen Ornelas ; [facility], [facility] Eliquis 5 MG Oral Tablet 12/31/2023 Provider: Diagnosis: Last Documented On 4 2:44PM By Karen Ornelas ; [facility], [facility] Atorvastatin Calcium 20 MG Oral Tablet 12/31/2023 Pr ovider: Diagnosis: Last Documented On 4 2:44PM By Karen Ornelas ; [facility], [facility] amLODIPine Besylate 5 MG Oral Tablet 12/10/2023 Prov ider: Diagnosis: Last Documented On 4 2:44PM By Karen Ornelas ; [facility], [facility] Albuterol Sulfate 108 (90 Ba se) MCG/ACT Inhalation Aerosol Powder Breath Activated 06/15/2022 Provider: Diagnosis: Last Documented On 3 8:21AM By Merari Parson ; [facility], [facility] Cymbalta 20 MG Oral Capsule Delayed Release Particles 06/15/2022 Provider: Diagnosis: Last Documented On 3 8:21AM By Merari Parson ; [facility], [facility] Estradiol 0.1 MG/GM Vaginal Cream 06/15/2022 Provide r: Diagnosis: Last Documented On 3 9:04AM By Merari Parson ; [facility], [facility] Retin-A 0.1% External Cream 06/15/2022 Provider: Diagnosis: Last Documented On 3 9:03AM By Merari Parson ; [facility], [facility] Nystatin-Triamcinolone 719052-5.1 UNIT/GM-% External C ream 06/15/2022 Provider: Diagnosis: Last Documented On 3 9:02AM By Merari Parson ; [facility], [facility] Triamcinolone Acetonide 0.1% External Cream 06/15/2022 Provider: Diagnosis: Last Documented On 3 8:29AM By Merari Parson ; [facility], [facility] oxyCODONE HCl 10 MG Oral Tablet 06/15/2022 Provider: Diagnosis: Last Documented On 3 8:27AM By Merari Parson ; [facility], [facility] Losartan Potassium 50 MG Oral Tablet 06/15/2022 Prov ider: Diagnosis: Last Documented On 3 8:26AM By Merari Parson ; [facility], [facility] Fluticasone-Salmeterol 250-5 0 MCG/ACT Inhalation Aerosol Powder Breath Activated 06/15/2022 Provider: Diagnosis: Last Documented On 3 8:25AM By Merari Parson ; [facility], [facility] Diphenoxylate-Atropine 2.5-0.025 MG Oral Tablet 2022 Provider: Diagnosis: Last Documented On 3 8:22AM By Merari Parson ; [facility], [facility] Acyclovir 400 MG Oral Tablet 10/05/2020 Provider: Diagnosis: Last Documented On 1 3:19PM By Adele Trevino ; [facility], [facility] Past Medications on file oxyCODONE HCl 5 MG Oral Tablet 07/19/2022 - 07/29/2022 Provider: Jesus Zimmer MD Diagnosis: Take 1 tablet by mouth every 4-6 hrs for break through pain Last Documented On 3 11:00AM By Jesus Espinosa ; [facility], [facility] Meloxicam 15 MG Oral Tablet 07/03/2022 - 07/17/2022 Pr ovider: Jesus Espinosa MD Diagnosis: once a day Last Documented On 3 8:45AM By Barbara Correa ; [facility], [facility] Ondansetron HCl 4 MG Oral Tablet 06/30/2022 - 07/07/2022 Provider: Jesus Zimmer MD Diagnosis: 1 po q 6h prn nausea Last Documented On 3 1:35PM By Jesus Espinosa ; [facility], [facility] oxyCODONE HCl 5 MG Oral Tablet 06/30/2022 - 07/10/2022 Provider: Jesus Zimmer MD Diagnosis: Take 1 tablet by mouth every 4-6 hrs for break through pain Last Documented On 3 1:35PM By Jesus Espinosa ; [facility], [facility] Acetaminophen 500 MG Oral Tablet 06/30/2022 - 07/14/2022 Provider: Jesus Zimmer MD Diagnosis: Take 2 tablets by mouth every 8 hours Last Documented On 3 1:35PM By Jesus Espinosa ; [facility], [facility] Cefadroxil 500 MG Oral Capsule 06/30/2022 - 07/07/2022 Provider: Jesus Zimmer MD Diagnosis: Take 1 tablet by mouth every 12 hours for 7 days Last Documented On 3 1:35PM By Jesus Espinosa ; [facility], [facility] Aspirin EC 81 MG Oral Tablet Delayed Release 06/30/2022 - 08/11/2022 Provider: Jesus Espinosa MD Diagnosis: Take 1 tablet by mouth every 12 hours for 42 days post op Last Documented On 3 1:35PM By Jesus Espinosa ; [facility], [facility] Vitamin D3 50 MCG (1999 [place]) Oral Tablet 06/20/2022 - 07/20/2022 Provider: Diana ABDI Diagnosis: once a day Last Documented On 3 1:03PM By Diana Rosas ; [facility], [facility] cloNIDine HCl 0.1 MG Oral Tablet 10/05/2020 - 11/05/19 Provider: Diagnosis: Last Documented On 1 3:16PM By Adele AMBRIZ [facility] Atorvastatin Calcium 20 MG O ral Tablet 10/05/2020 - 11/04/2020 Provider: MADI CHAPIN MD Diagnosis: Last Documented On 1 3:18PM By Adele AMBRIZ [facility] Medications Administered Includes: Administered Medications from this encounter No Administered Medications Recorded Vital Signs Includes: Vital Signs from this encounter Vital Name 04/30/2023 02:23P Height (in) 62 Weight (lb) 165 Body Mass Index 30.2 Body Surface Area 1.8 Note: bdf Last Documented: On 04/30/2023 2:23PM ; [facility], [facility] Results Includes: Results discussed during [...] Documented On 4 2:05PM ; [facility] Not a current smoker. 01/30/2024 Last Documented On 4 2:05PM ; [facility], [facility] Tobacco non-user 02/17/2022 Last Documented On 4 2:05PM ; [facility], [facility] Caffeine use 10/05/2020 Last Documented On 4 2:05PM ; [facility], [facility] Exercising regularly 10/05/2020 Last Documented On 4 2:05PM ; [facility], [facility] No recent change in diet 10/05/2020 Last Documented On 4 2:05PM ; [facility] Not a current smoker. 10/05/2020 Last Documented On 4 2:05PM ; [facility] Not using alcohol 10/05/2020 Last Documented On 4 2:05PM ; [facility] Not using drugs 10/05/2020 Last Documented On 4 2:05PM ; [facility] Non-smoker 10/05/2020 Last Documented On 4 2:05PM ; [facility] Not a current smoker 05/29/2018 Last Documented On 4 2:05PM ; [facility] No tobacco use 05/29/2018 Last Documented On 4 2:05PM ; [facility] Smoking status : Former smoker 9 Last Documented On 4 2:05PM ; [facility] Procedures and Surgical History Includes: Procedures from this encounter Procedures Code Diagnosis Performing Provider Service L ocation Service Date use of tobacco assessment performed 1000F Last Documented On 4 2:05PM ; [facility] patient screened for future fall risk: documentation of any fall with injury in past year 1100F Last Documented On 4 2:05PM ; [facility] review of medications documented 1160F Last Documented On 4 2:05PM ; [facility] an X-ray was performed 38818 Last Documented On 4 2:05PM ; [facility] an MRI was performed [id number] Last Documented On 4 2:05PM ; [facility] Surgical History Last Updated Past Surgical History: 03/16/2023 Last Documented On 4 2:05PM ; [facility] Medical History Includes: Medical History addressed during this encounter Description Last Updated History of Anemia 03/16/2023 Last Documented On 4 2:05PM ; [facility] History of History of Blood Clots 2022 Last Documented On 4 2:05PM ; [facility] Arthritis 10/05/2020 Last Documented On 4 2:05PM ; [facility] History of Arthroscopy 10/05/2020 Last Documented On 4 2:05PM ; [facility] Recent immunization for flu 10/05/2020 Last Documented On 4 2:05PM ; [facility] Recent immunization for pneumococcal pne umonia 10/05/2020 Last Documented On 4 2:05PM ; [facility] Shoulder arthroplasty 10/05/2020 Last Documented On 4 2:05PM ; [facility] Total hip replacement 10/05/2020 Last Documented On 4 2:05PM ; [facility] Total knee arthroplasty 10/05/2020 Last Documented On 4 2:05PM ; [facility] arthroscopy ~total joint replacement ~hi gh cholesterol 05/29/2018 Last Documented On 4 2:05PM ; [facility] Arthritic joint problems 05/29/2018 Last Documented On 4 2:05PM ; [facility] History of depression 05/29/2018 Last Documented On 4 2:05PM ; [facility] History of hepatitis C 05/29/2018 Last Documented On 4 2:05PM ; [facility] Family History Includes: Family History addressed during this encounter Description Last Updated Family history of cancer 10/05/2020 Last Documented On 4 2:05PM ; [facility] Family history of osteoporosis 1 Last Documented On 4 2:05PM ; [facility] Family history of thromboembolic disease 05/29/2018 Last Documented On 4 2:05PM ; [facility] Review of Systems Includes: Review [...] Active Last Documented On 06/16/2024 12:48PM ; [facility], [facility] Note: joint pain- Major fluoroquinolones Allergy 09/04/2018 Ac tive Last Documented On 5 12:48PM ; [facility], [facility] Encounters Encounter Provider Location Date Check-In Time Check-Out Time Diagnosis Follow Up Bautista Luis MD [facility] B 4 2:02PM 2:30PM Overweight Insurance Includes: Active Insurance Policies Plan Name Member ID Group # Subscriber Relationship Effect sherman Dates 1 - Medicare Part B [facility] [id number] Farrah Atkinson Self 4 - Unknown 2 - [facility] [id number] Farrah Atkinson Self 05/03/2019 - Unknown Clinical Notes Includes: Clinical Notes from this encounter * Progress note Date Encounter Last Documented by 04/30/2023 Follow Up Last documented on 05/01/2023; 3:50 PM, Bautista Luis MD; [facility], [facility] Active Problems & Conditions - [...] directed 0 days, 0 refills - Nystatin-Triamcinolone 283898-6.1 UNIT/GM-% External Cream take as directed 0 [...] Care Team - Chandra Leahy MD - [employer] TRIMMER
--- OUTSIDE RECORDS SUMMARY | 2025-02-05 14:49 | XMS_ITS | Clinical Summary ---
Author Organization [facility] , [facility] Address [address] [place] [address] Phone Care Team Providers Care Storage Garage Manager Name Role Phone Tosin VARGAS, Chandra Flores Unavailable [phone] Chel VARGAS, Davidson Unavailable [phone] Timothy Granda Primary Care Provider Unavailabl e Reason for Visit and Chief Complaint The Chief Complaint is: Left shoulder pain Problems Includes: Problems addressed during this encounter and other active Problems All Visits Onset Date Resolved Date Provider Condition S tatus Joint Pain Shoulder Left 03/16/2023 Funmi Robles PA-C Active Last Documented On 3 10:30AM ; [facility], [facility] Joint Pain Left Knee 03/31/2022 Jesus giles MD Active Last Documented On 2 10:01AM ; [facility], [facility] Joint Pain Right Knee 02/12/2019 Timothy dye MD Active Last Documented On 9 10:35AM ; [facility], [facility] Joint Pain Hip Right 02/12/2019 Timothy Foster MD Active Last Documented On 9 10:35AM ; [facility], [facility] Joint Pain Shoulder 05/29/2018 Bautista christie MD Active Last Documented On 9 10:31AM ; [facility], [facility] Plan of Treatment - Patient screened for future fall risk: documentation of any fall with injury in past year - Last Documented On 01/30/2024 4:58PM ; [facility], [facility] Fall Risk Assessment: This patient has [...] Documented On 01/30/2024 4:58PM ; [facility], [facility] Referrals To Diagnosis Consult with Orthopedic [facility] Note: REFFERAL TO SHARON Orozco @ [facility] ) Last Documented On 4 4:58PM ; [facility]: Dr Sharon [facility] // cc Last Documented On 4 11:37AM ; [facility] Instructions to patient Lose weight Last Documented On 4 2:44PM ; [facility] Assessments Includes: Assessments from this encounter Findings - Overweight - Last Documented On 01/30/2024 4:58PM ; [facility] Instructions Includes: Instructions from this encounter Instructions to patient Lose weight Last Documented On 4 2:44PM ; [facility] Medical Equipment - Implanted Devices Includes: Current Devices No Medical Equipment Recorded Medications Includes: Medications discussed during this encounter and other current Medications Discontinued / Stopped on this date Chandra Leahy MD on 03/12/2023 Acyclovir 400 MG Oral Tablet Provider: Chandra Leahy MD Diagnosis: Last Documented On 4 2:43PM By Karen [facility], [facility] Eliquis 5 MG Oral Tablet Provider: Aaron Leahy MD Diagnosis: Last Documented On 4 2:43PM By Karen AMBRIZ [facility], [facility] Diphenoxylate-Atropine 2.5-0.025 MG Oral Tablet Provider: Diagnosis: Last Documented On 4 2:43PM By Karen [facility] OxyCONTIN 20 MG Oral Tablet ER 12 Hour Abuse-Deterrent Provider: Diagnosis: Last Documented On 4 2:43PM By Karen Ornelas ; [facility] Sulfamethoxazole-Trimethoprim 400-80 MG Oral Tablet Provider: Diagnosis: Last Documented On 4 2:43PM By Karen Ornelas ; [facility] Potassium Chloride Amy ER 2 0 MEQ Oral Tablet Extended Release Provider: MADI CHAPIN MD Diagnosis: Last Documented On 4 2:43PM By Karen Ornelas ; [facility] Levothyroxine Sodium 25 MCG Oral Tablet P rovider: Chandra Leahy MD Diagnosis: Last Documented On 4 2:43PM By Karen Ornelas ; [facility] amLODIPine Besylate 5 MG Oral Tablet Prov ider: Diagnosis: Last Documented On 4 2:43PM By Karen Ornelas ; [facility] Cephalexin 500 MG Oral Capsule Provider: Diagnosis: Last Documented On 4 2:43PM By Karen Ornelas ; [facility] oxyCODONE HCl 10 MG Oral Tablet Provider: Chandra Leahy MD Diagnosis: Last Documented On 4 2:43PM By Karen Ornelas ; [facility] amLODIPine Besylate 10 MG Oral Tablet Pro vider: MADI CHAPIN MD Diagnosis: Last Documented On 4 2:44PM By Karen Ornelas ; [facility] Atorvastatin Calcium 20 MG Oral Tablet Pr ovider: MADI CHAPIN MD Diagnosis: Last Documented On 4 2:44PM By Karen Ornelas ; [facility] cloNIDine HCl 0.1 MG Oral Tablet Provider : Diagnosis: Last Documented On 4 2:44PM By Karen Ornelas ; [facility] Potassium Chloride Amy ER 2 0 MEQ Oral Tablet Extended Release Provider: MADI CHAPIN MD Diagnosis: Last Documented On 4 2:44PM By Karen Ornelas ; [facility] Current Medications (continue as prescribed) Acyclovir 400 MG Oral Tablet 01/27/2024 Provider: Diagnosis: Last Documented On 4 2:44PM By Karen Ornelas ; [facility] oxyCODONE HCl 10 MG Oral Tablet 01/22/2024 Provider: Diagnosis: Last Documented On 4 2:44PM By Karen Ornelas ; [facility] Dicyclomine HCl 10 MG Oral Capsule 01/22/2024 Provid er: CASTILLO ESPINO II, MD Diagnosis: Last Documented On 4 2:44PM By Karen Ornelas ; [facility] tiZANidine HCl 4 MG Oral Tablet 01/18/2024 Provider: Diagnosis: Last Documented On 4 2:44PM By Karen Ornelas ; [facility] Sulfamethoxazole-Trimethoprim 400-80 MG Oral Tablet Provider: Diagnosis: Last Documented On 4 2:44PM By Karen Ornelas ; [facility] DULoxetine HCl 60 MG Oral Capsule Delayed Releas e Particles 01/18/2024 Provider: Diagnosis: Last Documented On 4 2:44PM By Karen Ornelas ; [facility] HYDROmorphone HCl 4 MG Oral Tablet 01/08/2024 Provid er: Diagnosis: Last Documented On 4 2:44PM By Karen Ornelas ; [facility] Fluticasone-Salmeterol 100-5 0 MCG/ACT Inhalation Aerosol Powder Breath Activated 01/08/2024 Provider: Diagnosis: Last Documented On 4 2:44PM By Karen Ornelas ; [facility] Atorvastatin Calcium 40 MG Oral Tablet 01/08/2024 Pr ovider: Diagnosis: Last Documented On 4 2:44PM By Karen Ornelas ; [facility] Levothyroxine Sodium 25 MCG Oral Tablet 12/31/2023 P rovider: Diagnosis: Last Documented On 4 2:44PM By Karen Ornelas ; [facility] Eliquis 5 MG Oral Tablet 12/31/2023 Provider: Diagnosis: Last Documented On 4 2:44PM By Karen Ornelas ; [facility] Atorvastatin Calcium 20 MG Oral Tablet 12/31/2023 Pr ovider: Diagnosis: Last Documented On 4 2:44PM By Karen Ornelas ; [facility], [facility] amLODIPine Besylate 5 MG Oral Tablet 12/10/2023 Prov ider: Diagnosis: Last Documented On 4 2:44PM By Karen Ornelas ; [facility], [facility] Albuterol Sulfate 108 (90 Ba se) MCG/ACT Inhalation Aerosol Powder Breath Activated 06/15/2022 Provider: Diagnosis: Last Documented On 3 8:21AM By Merari Parson ; [facility], [facility] Cymbalta 20 MG Oral Capsule Delayed Release Particles 06/15/2022 Provider: Diagnosis: Last Documented On 3 8:21AM By Merari Parson ; [facility], [facility] Estradiol 0.1 MG/GM Vaginal Cream 06/15/2022 Provide r: Diagnosis: Last Documented On 3 9:04AM By Merari Parson ; [facility], [facility] Retin-A 0.1% External Cream 06/15/2022 Provider: Diagnosis: Last Documented On 3 9:03AM By Merari Parson ; [facility], [facility] Nystatin-Triamcinolone 611870-1.1 UNIT/GM-% External C ream 06/15/2022 Provider: Diagnosis: Last Documented On 3 9:02AM By Merari Parson ; [facility], [facility] Triamcinolone Acetonide 0.1% External Cream 06/15/2022 Provider: Diagnosis: Last Documented On 3 8:29AM By Merari Parson ; [facility], [facility] oxyCODONE HCl 10 MG Oral Tablet 06/15/2022 Provider: Diagnosis: Last Documented On 3 8:27AM By Merrai Parson ; [facility], [facility] Losartan Potassium 50 MG Oral Tablet 06/15/2022 Prov ider: Diagnosis: Last Documented On 3 8:26AM By Merari Parson ; [facility], [facility] Fluticasone-Salmeterol 250-5 0 MCG/ACT Inhalation Aerosol Powder Breath Activated 06/15/2022 Provider: Diagnosis: Last Documented On 3 8:25AM By Merari Parson ; [facility], [facility] Diphenoxylate-Atropine 2.5-0.025 MG Oral Tablet 2022 Provider: Diagnosis: Last Documented On 3 8:22AM By Merari Parson ; [facility], [facility] Acyclovir 400 MG Oral Tablet 10/05/2020 Provider: Diagnosis: Last Documented On 1 3:19PM By Adele Trevino ; [facility], [facility] Past Medications on file oxyCODONE HCl 5 MG Oral Tablet 07/19/2022 - 07/29/2022 Provider: Jesus Zimmer MD Diagnosis: Take 1 tablet by mouth every 4-6 hrs for break through pain Last Documented On 3 11:00AM By Jesus Espinosa ; [facility], [facility] Meloxicam 15 MG Oral Tablet 07/03/2022 - 07/17/2022 Pr ovider: Jesus Espinosa MD Diagnosis: once a day Last Documented On 3 8:45AM By Barbara Correa ; [facility], [facility] Ondansetron HCl 4 MG Oral Tablet 06/30/2022 - 07/07/2022 Provider: Jesus Zimmer MD Diagnosis: 1 po q 6h prn nausea Last Documented On 3 1:35PM By Jesus Espinosa ; [facility], [facility] oxyCODONE HCl 5 MG Oral Tablet 06/30/2022 - 07/10/2022 Provider: Jesus Zimmer MD Diagnosis: Take 1 tablet by mouth every 4-6 hrs for break through pain Last Documented On 3 1:35PM By Jesus Espinosa ; [facility], [facility] Acetaminophen 500 MG Oral Tablet 06/30/2022 - 07/14/2022 Provider: Jesus Zimmer MD Diagnosis: Take 2 tablets by mouth every 8 hours Last Documented On 3 1:35PM By Jesus Espinosa ; [facility], [facility] Cefadroxil 500 MG Oral Capsule 06/30/2022 - 07/07/2022 Provider: Jesus Zimmer MD Diagnosis: Take 1 tablet by mouth every 12 hours for 7 days Last Documented On 3 1:35PM By Jesus Espinosa ; [facility], [facility] Aspirin EC 81 MG Oral Tablet Delayed Release 06/30/2022 - 08/11/2022 Provider: Jesus Espinosa MD Diagnosis: Take 1 tablet by mouth every 12 hours for 42 days post op Last Documented On 3 1:35PM By Jesus Espinosa ; [facility], [facility] Vitamin D3 50 MCG (1999 [place]) Oral Tablet 06/20/2022 - 07/20/2022 Provider: Diana ABDI Diagnosis: once a day Last Documented On 3 1:03PM By Diana Rosas ; [facility], [facility] cloNIDine HCl 0.1 MG Oral Tablet 10/05/2020 - 11/05/19 Provider: Diagnosis: Last Documented On 1 3:16PM By Adele Sawyer [facility], [facility] Atorvastatin Calcium 20 MG O ral Tablet 10/05/2020 - 11/04/2020 Provider: MADI CHAPIN MD Diagnosis: Last Documented On 1 3:18PM By Adele Trevino ; [facility], [facility] Medications Administered Includes: Administered Medications from this encounter No Administered Medications Recorded Vital Signs Includes: Vital Signs from this encounter Vital Name 01/30/2024 02:45P Height (in) 62 Weight (lb) 140 Body Mass Index 25.6 Body Surface Area 1.6 Note: ct Last Documented: On 01/30/2024 3:32PM ; [facility], [facility] Results Includes: Results discussed during this [...] will refer her to Dr. Mixon in [place] for further evaluation and treatment. Social History Description Last Updated Recent change in diet 01/30/2024 Last Documented On 4 4:58PM ; [facility], [facility] Not a current smoker. 01/30/2024 Last Documented On 4 4:58PM ; [facility], [facility] Caffeine use 10/05/2020 Last Documented On 4 2:44PM ; [facility], [facility] Exercising regularly 10/05/2020 Last Documented On 4 2:44PM ; [facility], [facility] No recent change in diet 10/05/2020 Last Documented On 4 2:44PM ; [facility], [facility] Not a current smoker. 10/05/2020 Last Documented On 4 2:44PM ; [facility], [facility] Not using alcohol 10/05/2020 Last Documented On 4 2:44PM ; [facility], [facility] Not using drugs 10/05/2020 Last Documented On 4 2:44PM ; [facility], [facility] No tobacco use 05/29/2018 Last Documented On 4 2:44PM ; [facility] Smoking Status Unknown Procedures and Surgical History Includes: Procedures from this encounter Procedures Code Diagnosis Performing Provider Service L ocation Service Date use of tobacco assessment performed 1000F Last Documented On 4 2:44PM ; [facility] patient screened for future fall risk: documentation of any fall with injury in past year 1100F Last Documented On 4 2:44PM ; [facility] review of medications documented 1160F Last Documented On 4 2:44PM ; [facility] 02283 Last Documented On 4 2:44PM ; [facility] Last Documented On 4 3:34PM ; [facility] an MRI was performed [id number] Last Documented On 4 2:44PM ; [facility] Surgical History Last Updated History of History of Arthroscopy 2023 Last Documented On 4 4:58PM ; [facility] History of Previous Fractures 01/30/2024 Last Documented On 4 4:58PM ; [facility] History of total hip replacement 024 Last Documented On 4 4:58PM ; [facility] History of total knee arthroplasty 01/29 Last Documented On 4 4:58PM ; [facility] Past Surgical History: 03/16/2023 Last Documented On 4 2:44PM ; [facility] Medical History Includes: Medical History addressed during this encounter Description Last Updated History of asthma 01/30/2024 Last Documented On 4 4:58PM ; [facility] History of History of Blood Transfusion 01/30/2024 Last Documented On 4 4:58PM ; [facility] History of Hypertension 01/30/2024 Last Documented On 4 4:58PM ; [facility] History of Anemia 03/16/2023 Last Documented On 4 2:44PM ; [facility] History of arthritis 03/16/2023 Last Documented On 4 2:44PM ; [facility], [facility] History of History of Blood Clots 2022 Last Documented On 4 2:44PM ; [facility] Anemia 10/05/2020 Last Documented On 4 2:44PM ; [facility], [facility] Arthritis 10/05/2020 Last Documented On 4 2:44PM ; [facility], [facility] History of Arthroscopy 10/05/2020 Last Documented On 4 2:44PM ; [facility], [facility] Recent immunization for flu 10/05/2020 Last Documented On 4 2:44PM ; [facility], [facility] Recent immunization for pneumococcal pne umonia 10/05/2020 Last Documented On 4 2:44PM ; [facility], [facility] Shoulder arthroplasty 10/05/2020 Last Documented On 4 2:44PM ; [facility], [facility] Total hip replacement 10/05/2020 Last Documented On 4 2:44PM ; [facility], [facility] Total knee arthroplasty 10/05/2020 Last Documented On 4 2:44PM ; [facility], [facility] arthroscopy ~total joint replacement ~hi gh cholesterol 05/29/2018 Last Documented On 4 2:44PM ; [facility], [facility] Arthritic joint problems 05/29/2018 Last Documented On 4 2:44PM ; [facility], [facility] History of depression 05/29/2018 Last Documented On 4 2:44PM ; [facility], [facility] History of hepatitis C 05/29/2018 Last Documented On 4 2:44PM ; [facility], [facility] Family History Includes: Family History addressed during this encounter Description Last Updated Family history of cancer 10/05/2020 Last Documented On 4 2:44PM ; [facility], [facility] Family history of osteoporosis Last Documented On 4 2:44PM ; [facility], [facility] Family history of thromboembolic disease 05/29/2018 Last Documented On 4 2:44PM ; [facility] Review of Systems Includes: Review of [...] Active Last Documented On 06/16/2024 12:48PM ; [facility] Note: joint pain- Major fluoroquinolones Allergy 09/04/2018 Ac tive Last Documented On 5 12:48PM ; [facility] Encounters Encounter Provider Location Date Check-In Time Check-Out Time Diagnosis Follow Up Chandra Grewal PA-C [facility] B 01/30/20 24 2:50PM 3:29PM Overweight Insurance Includes: Active Insurance Policies Plan Name Member ID Group # Subscriber Relationship Effect sherman Dates 1 - Medicare Part B [facility] [id number] Farrah Atkinson Self 4 - Unknown 2 - [employer] [id number] Farrah Atkinson Self 05/03/2019 - Unknown Clinical Notes Includes: Clinical Notes from this encounter * Progress note Date Encounter Last Documented by 01/30/2024 Follow Up Last documented on 01/30/2024; 4:58 PM, Chandra Grewal PA-C; [facility], [facility] Active Problems & Conditions - Joint [...] will refer her to Dr. Mixon in [place] for further evaluation and treatment. Current Medication [...] directed 0 days, 0 refills - Nystatin-Triamcinolone 454927-4.1 UNIT/GM-% External Cream take as directed 0 [...] Instructions: REFFERAL TO SHARON MIXON @ [facility] ) Referral/Orthopedic: Consult with Orthopedic Instructions: Dr [...] Care Team - Chandra Leahy MD - SLASHER SAWYER
--- OUTSIDE RECORDS SUMMARY | 2025-02-05 14:49 | XMS_ITS | Encounter Summary ---
Author Organization [employer] ([place], [place], [place], [place], [place]) Address [address] [place] [address] Care Team Providers Care Desilverizer Name Role Phone Sj, Provider Not In The System Primary Care Provider Unavailable Encounter Details Date Type Department Care Team (Late st Contact Info) Description 04/28/2019 Transcribed Document [facility] [place] [facility] [place] [address] ProviderJean-Claude MD [address] [place] [address] Social History Tobacco Use Types [...] - Jean-Claude ProviderMD - 04/28/2019 9:47 AM MIXER SLAGMAN Patient Education Materials Follows: General Anesthesia, Adult, [...] activities are safe for you. ??? Take [id number]-omvttcy and prescription medicines only as told by [...] 06/25/2001 Document Revised: 11/02/2017 Document Reviewed: 11/02/2017 [employer] Interactive Patient Education ? 2019 [employer] Knee Arthroscopy, Care After Refer to [...] activities are safe for you. ??? Perform [id number] exercises only as directed by your health [...] 03/15/2015 [employer] Interactive Patient Education ? 2018 [employer] documented in this encounter Plan of Treatment Not on file documented as of this encounter Visit Diagnoses Not on filedocumented in this encounter Care Teams Desilverizer Relationship Specialty Start Date End Date Leslee, Provider Not In The System, [place] [address] PCP - General 04/16/23 documented as of this encounter
--- OUTSIDE RECORDS SUMMARY | 2025-02-05 14:49 | XMS_ITS | Encounter Summary ---
Author Organization [employer] ([place], [place], [place], [place], [place]) Address [address] [place] [address] Care Team Providers Care Gas Desulfurizer Name Role Phone Sj, Provider Not In The System Primary Care Provider Unavailable Encounter Details Date Type Department Care Team (Late st Contact Info) Description 04/28/[address] [facility] [place] [facility] [place] [address] ProviderJean-Claude MD [facility] [place] [id number] Social History Tobacco Use Types Packs/Day Years Used Date Smoking Tobacco: Never Assessed Comments Unknown Sex and Gender Information Value Date Recorded Sex Assigned at Not on file Legal Sex Female 5:42 PM CDT Gender Identity Not on file Sexual Orientation Not on file documented as of this encounter Miscellaneous Notes * Cerner Conversion Note - Historical ProviderMD - 04/28/2019 9:04 AM MANAGER CREDIT RISK DATE OF PROCEDURE: 04/28/2019 SURGEON: Timothy Foster [...] to the recovery room in satisfactory condition. /[id number] MD MICHAEL Trujillo/JAZMYN / MICHAEL / MODL /[id number] documented in this encounter Plan of Treatment Not on file documented as of this encounter Visit Diagnoses Not on filedocumented in this encounter Care Teams Gas Desulfurizer Relationship Specialty Start Date End Date Leslee, Provider Not In The System, [place] [address] PCP - General 04/16/23 documented as of this encounter
--- OUTSIDE RECORDS SUMMARY | 2025-02-05 14:50 | XMS_ITS | Encounter Summary ---
Author Organization Healthcare Address [address] [place] [address] Care Team Providers Care Environmental Journalist Name Role Phone Chandra Leahy MD Primary Care Provider [phone] Timothy Granda DO Primary Care Provider [phone] Sadia Campo INSOLE ROUNDER Unavailable Unavailable Encounter Details Date Type Department Care Team (Late st Contact Info) Description 08/14/2022 Lab Requisition [facility] [address] [place] [address] Dilip Lloyd MD [address] [address] Encounter for general adult medical [...] drink first t mini in the morning (EYE-NEGATIVE RETOUCHER) to steady your nerves or to get [...] 07/20/2025 10:40 AM EDT Office Visit [facility] Nephrology, Bone & Mineral Metabolism [address], [address] [place] [address] Gutierrez Domínguez MD [address] [place] [address] documented as of this encounter [...] - GENERAL ORDERABLES Final Result [facility] [address] [place] [address] documented in this encounter Visit Diagnoses Diagnosis Encounter for general adult medical examination without abnormal findings documented in this encounter Additional Health Concerns Infection Onset Date Last Indicated Resolved Time COVID-19 Rule-Out 07/22/2023 07/22/2023 07/22/2023 12:14 PM EDT C. difficile Rule-Out 07/26/2023 08/01/20232023 1:07 AM EDT Gastrointestinal Rule-Out 08/02/2023 08/01/2023 3:00 AM EDT documented as of this encounter Care Teams Environmental Journalist Relationship Specialty Start Date End Date Chandra Leahy MD [address] [place] [address] PCP - General 08/02/22 05/24/23 Timothy Granda DO [address] [place] [address] PCP - General 05/25/23 [place] [address] Oil Winterizer Director Financial Planning 08/03/22 06/21/24 documented as of this encounter
--- OUTSIDE RECORDS SUMMARY | 2025-02-05 14:50 | XMS_ITS | Encounter Summary ---
Author Organization [facility] Address [address] [place] [address], [address] [place] [address] Care Team Providers Care Quality Tester Name Role Phone Unavailable Primary Care Provider Unavailabl e Reason for Visit * Reason Onset Date Comments Care Coordination 11/21/2024 Nurse navigato r Encounter Details Date Type Department Care Team (Late st Contact Info) Description 11/21/2024 Telephone [facility] Orthopedic and Sports Medicine [place] [phone] Willa Lan RN Care Coordination (Nurse navigator) [...]
--- OUTSIDE RECORDS SUMMARY | 2025-02-05 14:50 | XMS_ITS | Encounter Summary ---
Author Organization [facility] Address [address], [address] [place] [address] Care Team Providers Care Staff Mechanical Engineer Name Role Phone Unavailable Primary Care Provider Unavailabl e Encounter Details Date Type Department Care Team (Latest Contact Info) Description 11/05/2024 Prep for Procedure [facility] Orthopedic and Sports Medicine [address] [place] [address] BlufftonLaisha MA History of total replacement of left [...]
--- OUTSIDE RECORDS SUMMARY | 2025-02-05 14:50 | XMS_ITS | Encounter Summary ---
Author Organization [facility] Address [address] [place] [address] Care Team Providers Care Internet Ecommerce Specialist Name Role Phone Timothy Granda DO Primary Care Provider [phone] Encounter Details Date Type Department Care Team [...] to sleep or slept in a senior care (including now)? Patient refused 07/23/2023 CAGE ASSESSMENT [...] drink first t mini in the morning (EYE-TANK CHARGER) to steady your nerves or to get rid of a hangover? 0 11/15/2023 CAGE Questionnaire Score 0 024 Utilities Answer Date Recorded In the past 12 months has th e [employer], gas, oil, or water company threatened to [...] Description 07/20/2025 10:40 AM EDT Office Visit [facility] [employer] [place] Nephrology, Bone & Mineral Metabolism [address], [address] [place] [address] Gutierrez Domínguez MD [address] [place] [phone] documented as of this encounter Visit Diagnoses Not on filedocumented in this encounter Additional Health Concerns Assessment Noted Time A fall risk assessment has been complete d for the patient 01/19/2025 10:00 AM EDT A Body Mass Index follow-up plan has been documented for the patient 01/20/2025 11:25 AM EDT documented as of this encounter Care Teams Internet Ecommerce Specialist Relationship Specialty Start Date End Date Timothy Granda DO [address] [place] [address] PCP - General 05/25/23 documented as of this encounter
--- OUTSIDE RECORDS SUMMARY | 2025-02-05 14:50 | XMS_ITS | Clinical Summary ---
Author Organization [facility] Address [address] [place] [address] Care Team Providers Care Tax Services Intern Name Role Phone Timothy Granda DO Primary Care Provider [phone] Allergies Active Allergy Reactions Criticality Noted Date [...] Description 01/19/2025 10:00 AM EDT Office Visit [facility] Nephrology, Bone & Mineral Metabolism [address] [facility], [address] [place] [address] Gutierrez Domínguez MD Acute kidney injury (Primary Dx); Vitamin D deficiency; CKD stage 3a, GFR 45-59 ml/min ([facility]/HCC); Chronic kidney disease-mineral and bone disorder (CKD-MBD); Secondary hyperparathyroidism of renal origin ([facility]); Hypertension, unspecified type; Hyperlipidemia, unspecified hyperlipidemia type 01/19/2025 Travel 01/07/2025 Orders Only [facility] [address] [place] [address] Shantal Solorio TIP (acute kidney injury) (Primary Dx); Vitamin D insufficiency from Last 3 Months Immunizations Immunization Administration Dates Next Due Influenza Vaccine, Quadrivalent, Adjuvanted 01/31,01/25/2022,05/31/2021 Influenza, injectable, quadrivalent 02/14/2015 Influenza, injectable, quadr ivalent, preservative free 02/14/2015 Influenza, trivalent, adjuvanted 12/22/2019 Qoopl COVID-19 Vaccine (Blue Cap) 18+ 06/10/19 Moderna [...] drink first 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 0 11/15/2023 CAGE Questionnaire Score 0 024 Utilities Answer Date Recorded In the past 12 months has e [employer], gas, oil, or water [employer] threatened to shut off services in your [...] Upcoming Encounters Date Type Department Care Team ([facility] st Contact Info) Description 07/20/2025 10:40 AM EDT Office Visit [facility] Nephrology, Bone & Mineral Metabolism [address] [facility], [address] [place] [address] Gutierrez Domínguez MD [address] [place] [phone] Health Maintenance Due Date Last Done Comments [facility]-Bone Density Scan 1950 [facility]-Infant/Child/Adol SDOH Screenings 1950 [facility]- SDOH Screenings 09/26/1969 [facility]-Adult SDOH Screenings 09/26/1969 [facility]-DTaP,Tdap,and Td Vaccines (1 - Tdap) 09/26/1970 CT Colonography 09/26/1996 FIT-DNA 09/26/1996 FIT 09/26/1996 FOBT 09/26/1996 [facility]-Breast Cancer Screening 09/26/2001 [facility]-Zoster Vaccines (1 of 2) 09/26/2001 [facility]-Medicare Annual Wellness (AWV) 03/13/2023 03/13/2022 [facility]-Depression Screening 03/27/2024 03/27/2023 [id number] Vaccine ( season) 2024 02/20/2024, 02/09/2023, 01/25/2022, [...] Antigen Negative Negative 08/02/2023 7:49 PM EDT [facility] Hepatitis A Antibody IgM Negative Negative 08/02/2023 7:49 PM EDT [facility] Hepatitis B Core Antibody IgM Negative Negative 08/02/2023 7:49 PM EDT [facility] Blood Venous blood specimen [...] Status 08/03/2022 Positive (A) Negative Final us Jereime Ingram MD LAB BLOOD ORDERABLES Final R esult [facility] [address] [place] [address] * Flexible Sigmoidoscopy (02/21/2023 10:25 AM EST) [...] Misti Page MD Adam Rooks, MD Proceduralist president and chief operating officer Adama Montes, Chika Peterson CRNA, RN Endo Nurse Butch Little MD Fellow Tete Whitmore Endo Front Desk Manager Preprocedure A history and physical has [...] of bowel preparation was evaluated using the [place] Bowel Preparation Scale with scores of: left [...] of bowel preparation was evaluated using the [place] Bowel Preparation Scale with scores of: right [...] Patient has decision-making capacity? Yes Care Teams Tax Services Intern Relationship Specialty Start Date End Date Timothy Granda DO [address] [place] [address] PCP - General 05/25/23
--- OUTSIDE RECORDS SUMMARY | 2025-02-05 14:50 | XMS_ITS | Encounter Summary ---
Author Organization [facility] Address [address], [address] [place] [address] Care Team Providers Care Military Science Instructor Name Role Phone Unavailable Primary Care Provider Unavailabl e Reason for Visit * Reason Onset Date Comments Surgery Scheduling 11/20/2024 LT SHDLR Encounter Details Date Type Department Care Team (Late st Contact Info) Description 11/20/2024 Telephone [facility] [address] [place] [phone] [place] [address] [place] [address] [address] [place] [address] Surgery Scheduling (LT SHDLR) Social [...]
--- OUTSIDE RECORDS SUMMARY | 2025-02-05 14:50 | XMS_ITS | Clinical Summary ---
Author Organization 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
--- NOTE | 2025-02-05 15:04 | XR_ITS ---
FINAL REPORT CLINICAL HISTORY: hypotension/sepsis COMPARISON: 11/28/2024 FINDINGS: A portable view of the chest was obtained. Cardiac and mediastinal silhouettes are within normal limits. The lungs are clear. There is no pleural effusion or pneumothorax. IMPRESSION: No acute process on this portable exam. Reviewed, Interpreted and Dictated by Amanda Scanlon MD Transcribed by Simona Castillo Authenticated and [facility]
[2025-02-05 15:38] LABS: Hematocrit 36.7 % (37.0-47.0); Hemoglobin 11.8 g/dL (12.2-16.2); Immature Granulocytes % 0.4 %; Mean Corpuscular HGB Conc 32.2 g/dL (31.8-35.4); Mean Corpuscular Hemoglobin 30.0 pg (27.0-31.2); Mean Corpuscular Volume 93.4 fl (81-99); Nucleated Red Blood Cells % 0 %; Platelet Count 495 K/mm3 (142-424); Red Blood Count 3.93 M/mm3 (4.20-5.40); Red Cell Distribution Width-SD 46.4 fL; White Blood Count 10.6 K/mm3 (4.8-10.8)
[2025-02-05] MEDS: 0.9 % SODIUM CHLORIDE 1000ML 1,000 ML 999 ML IV ×2 (15:39→16:59)
[2025-02-05 15:47] LABS: Activated Partial Thrombo Time 23.7 seconds (22.8-30.6); INR 0.95 (0.9-1.1); Prothrombin Time 10.6 seconds (10.1-12.5)
[2025-02-05 16:00] LABS: Microscopic, Urine URINE MICROSCOPIC (MICROSCOPIC)
[2025-02-05 16:06] LABS: Bilirubin,Urine Negative (Negative); Color,Urine YELLOW (Yellow); Glucose,Urine (UA) Negative (Negative); Ketones,Urine Negative (Negative); Leukocyte Esterase,Urine Negative (Negative); PH,Urine 6.0 (5.0-8.5); Protein,Urine TRACE (Negative); Specific Gravity, Urine 1.015 (1.005-1.030); Urobilinogen,Urine 0.2 EU/dl (0.2)
[2025-02-05 16:26] LABS: Bacteria,Urine 4+ /lpf
[2025-02-05 16:37] LABS: Albumin Level 4.9 g/dl (3.5-5.0); Chloride 101 mmol/L (98-107); Magnesium 1.8 mg/dl (1.6-2.3); Potassium 4.3 mmoL/L (3.5-5.1); Sodium 135 mmol/L (136-145)
[2025-02-05 16:39] LABS: Blood Urea Nitrogen 26 mg/dl (7-17); Creatinine Clearance Estimated 33 mL/min (50-200); Creatinine,Serum 1.80 mg/dl (0.52-1.04); Estimated Glomerular Filt Rate 28 ml/min (>60); GFR (African American) 33 ML/MIN (>60)
[2025-02-05 16:40] LABS: Alanine Aminotransferase 19 U/L (12-78); Albumin/Globulin Ratio 2.0 (1.1-1.8); Alkaline Phosphatase 102 U/L (38-126); Anion Gap 15.3 mEq/L (5-15); Aspartate Amino Transferase 24 U/L (14-36); Bilirubin,Total 0.6 mg/dl (0.2-1.3); Calcium 9.3 mg/dl (8.4-10.2); Carbon Dioxide 23 mmol/L (22.0-30.0); Globulin 2.5 g/dL (1.3-3.2); Glucose 96 mg/dl (74-100); Total Protein,Serum 7.4 g/dl (6.3-8.2)
--- NOTE | 2025-02-05 17:22 | PC.NURSE ---
house mother notified of admission
--- NOTE | 2025-02-05 18:54 | P.HP_ITS ---
<Statement entered by Timothy Weiss MD - 02/07/25 14:16> Agree with the plan of care as outlined by the AUTOMOBILE CARPETS MOLDER. History of Present Illness *Admission Date: 02/05/25 *Reason for visit:: Abdominal pain *History of present illness: This is a 74-year-old female who has a past medical history significant for hypertension, anemia, obesity, chronic kidney disease, systolic murmur, ischemic bowel disease, paroxysmal atrial fibrillation, C. difficile, ileostomy placement, IBS, hyperlipidemia, and vitamin D deficiency who presents with low blood pressure and abdominal pain. Due to patient's symptoms, she presented to the emergency room for evaluation. While in emergency room, patient's presenting creatinine was elevated from her known baseline. She was hypotensive. As a result, patient is being admitted for further management. During my evaluation of the patient, patient was requesting pain medication. I informed patient that she would be able to request pain medication; however, if her blood pressure was less than 100 systolic or mean arterial pressure was subtherapeutic that the patient staff may not administer opioids due to unsafe drop in blood pressure. Spouse and patient were dissatisfied with these results in the voice their concerns. Moreover, they appear to be argumentative concerning the pain medication administration. I highlighted with the nursing staff my instructions to only administer opioids if blood pressure was safe. Nursing staff voiced an understanding. She did present due to abdominal pain and low blood pressure. She presented last night to the [facility] with elevated blood pressure and abdominal pain. CT scan of the abdomen and pelvis revealed moderate bowel wall thickening and surrounding edema referable to the distal bowel at the ostomy and within the peritoneal cavity in keeping with acu te enteritis, associated fluid distended distal bowel most in keeping with ileus associated with enteritis. Patient was discharged home with hydralazine and responded to labetalol (her blood pressure was in the 200s systolic). Patient states she did not take any of the hydralazine when she got home. She is currently complaining of 10 out of 10 abdominal pain. Chest x-ray was negative for any acute cardiopulmonary process. Additional pertinent vitals obtained include a red blood cell count of 3.93, hemoglobin Raymond 0.8, hematocrit 36.7, platelet count of 495, sodium 135, BUN 26, creatinine 1.80, GFR 28, a urinalysis revealed 2 3-red blood cells/10-L/5-10 epithelial/4+ bacteria. [facility] Disclaimer: The information contained in this section may have been updated after the patient was seen, as this information can be updated by other users. Medical History Left foot pain Right foot injury Chronic kidney disease TIP (acute kidney injury) Systolic murmur Bowel wall thickening Ischemic bowel disease Hypertension Paroxysmal atrial fibrillation Aftercare following bilateral knee joint replacement surgery C. difficile diarrhea Colostomy in place Perforated sigmoid colon Elevated liver enzymes Ileus Abnormal electrocardiogram [ECG] [EKG] Abdominal pain Hypothyroidism IBS (irritable bowel syndrome) HLD (hyperlipidemia) HTN (hypertension), benign Hypokalemia Hypokalemia due to loss of potassium Surgical History H/O ileostomy History of total right hip replacement History of arthroscopy of left shoulder Family History Other Anemia Asthma Cancer Hyperlipidemia Social History Smoking Status: Never smoker second hand exposure: No alcohol intake: never current occupational status: retired Travel in the last 8 weeks?: None household members: spouse housing: house marital status: current occupational exposures/hazards: No caffeine: No Other Medical History Have you received the Flu Vaccine for this season: No Have you received the Pneumonia Vaccine: No Review of Systems Review of Systems Review of systems:: pertinent systems reviewed and negative unless documented below Constitutional Constitutional: Reports system reviewed and no additional complaints, except as documented Eyes Eyes: Reports system reviewed and no additional complaints, except as documented ENT Ears, Nose, Mouth, and Throat: Reports system reviewed and no additional complaints, except as documented *Cardiovascular Cardiovascular: Reports system reviewed and no additional complaints, except as documented *Respiratory Respiratory: Reports system reviewed and no additional complaints, except as documented *Gastrointestinal Gastrointestinal: Reports abdominal pain and Reports other Comments: Ileostomy *Genitourinary Genitourinary: Reports system reviewed and no additional complaints, except as documented *Musculoskeletal Musculoskeletal: Reports system reviewed and no additional complaints, except as documented Integumentary/Breasts Skin/Breast: Reports system reviewed and no additional complaints, except as documented *Neurologic Neurologic: Reports other (Drowsy) Psychiatric Psychiatric: Reports system reviewed and no additional complaints, except as documented Endocrine Endocrine: Reports system reviewed and no additional complaints, except as documented Hematologic/Lymphatic Hematologic/Lymphatic: Reports system reviewed and no additional complaints, except as documented Allergic/Immunologic Allergic/Immunologic: Reports system reviewed and no additional complaints, except as documented Meds Home Medications and Allergies Home Medications ?Medication ?Instructions ?Recorded ?Confirmed ?Type amitriptyline 50 mg tablet 50 mg PO HS #30 tabs 02/05/25 Rx aripiprazole 2 mg tablet 2 mg PO DAILY 05/09/2402/05 History ergocalciferol (vitamin D2) 1,250 1,250 mcg PO WEEKLY #4 caps 07/07/24 02/05/25 Rx mcg (50,000 unit) capsule atorvastatin 40 mg tablet 40 mg PO DAILY #90 tabs 09/3002/05/25 Rx diphenoxylate-atropine 2.5 1 tab PO TID 90 days #270 t abs 11/26/24 02/05/25 Rx mg-0.025 mg tablet ciclopirox 0.77 % topical gel 1 applic topical DAILY 0 11/30/24 02/05/25 History Held on 01/28/25. Instructions: Deferring continuation of medication to accepting facility due to current state of altered mental status. Oral medications currently are not appropriate due to her mentation state. Will defer as noted. dicyclomine 10 mg capsule 10 mg PO TIDP PRN abdominal pain 11/30/24 02/05/25 History Held on 01/28/25. Instructions: Deferring continuation of medication to accepting facility due to current state of altered mental status. Oral medications currently are not appropriate due to her mentation state. Will defer as noted. duloxetine 60 mg capsule,delayed 120 mg PO DAILY 11/3002/05/25 History release Held on 01/28/25. Instructions: Deferring continuation of medication to accepting facility due to current state of altered mental status. Oral medications currently are not appropriate due to her mentation state. Will defer as noted. furosemide 40 mg tablet 40 mg PO DAILYP PRN Edema #3 0 tabs 01/02/25 02/05/25 Rx estradiol 0.25 mg/0.25 gram (0.1 1 packet transdermal DAILY 01/08/25 02/05/25 History %) transdermal gel packet nystatin 100,000 unit/gram topical 1 applic topical BI D Rash #30 grams 01/08/25 02/05/25 Rx cream oxycodone 10 mg tablet 10 mg PO Q4HP PRN Moderate P ain 01/08/25 02/05/25 Rx (Scale Score 5-6) #180 tabs sulfamethoxazole 400 1 tab PO DAILY 90 days #90 t abs 01/08/25 02/05/25 Rx mg-trimethoprim 80 mg tablet amlodipine 5 mg tablet 5 mg PO HS #90 tabs 01/11/25 02/05/25 Rx levothyroxine 25 mcg tablet 25 mcg PO DAILY #90 tabs 1 02/05/25 Rx losartan 50 mg tablet 75 mg (1.5 x 50 mg) PO DAILY #135 01/11/25 02/05/25 Rx tabs clonidine HCl 0.1 mg tablet 0.1 mg PO BID 02/05/2509/24 History tizanidine 4 mg tablet 4 mg PO TID muscle spasticit y 02/05/25 02/05/25 History New Prescriptions to Start Prescriptions: Allergies Allergy/AdvReac Type Severity Reaction Status Date / Time ciprofloxacin (From Cipro) Allergy Intermediate Muscle Pain Verified 01/15/25 11:20 levofloxacin (From Levaquin) AdvReac Rash Verified 01/15/25 11:20 Exam Data for Last 24 hours Vital signs and Labs for Last 24 Hours: Temp Pulse Resp BP Pulse Ox O2 Del Method 98.2 F 80 20 105/55 L 99 Room Air 02/05/25 18:17 02/05/25 18:17 02/05/25 18:17 02/05/25 18:17 02/05/25 18:00 02/05/25 18:52 Laboratory Results - last 24 hr 02/05/25 15:27: WBC 10.6 D, RBC 3.93 L, Hgb 11.8 L, Hct 36.7 L, MCV 93.4, MCH 30.0, MCHC 32.2, RDW 13.6, Plt Count 495 H, MPV 9.0, Neut % (Auto) 68.7, Lymph % (Auto) 19.4, [place] % (Auto) 7.9, Eos % (Auto) 3.1, Baso % (Auto) 0.5, Neut # (Auto) 7.3, Lymph # (Auto) 2.1, [place] # (Auto) 0.8, Eos # (Auto) 0.3, Baso # (Auto) 0.1, PT 10.6, INR 0.95, APTT 23.7, Sodium 135 L, Potassium 4.3, Chloride 101, Carbon Dioxide 23, Anion Gap 15.3 H, BUN 26 H, Creatinine 1.80 H D, Estimated Creat Clear 33, Estimated GFR 28 L, Est GFR ( Amer) 33 L D, Glucose 96 D, Lactate 2.1, Calcium 9.3, Magnesium 1.8 D, Total Bilirubin 0.6, AST 24, ALT 19, Alkaline Phosphatase 102, Total Protein 7.4, Albumin 4.9, Globulin 2.5, Albumin/Globulin Ratio 2.0 H 02/05/25 15:55: Urine Color Yellow, Urine Appearance Clear, Urine pH 6.0, Ur Specific [place] 1.015, Urine Protein Trace, Urine Glucose (UA) Negative, Urine Ketones Negative, Urine Blood Negative, Urine Nitrate Negative, Urine Bilirubin Negative, Urine Urobilinogen 0.2, Ur Leukocyte Esterase Negative, Urine RBC 3-5, Urine WBC 10-20, Ur Squamous Epith Cells 5-10, Urine Bacteria 4+ I & O for Last 24 hours: Intake & Output 02/02/25 02/03/25 02/04/25 02/05/25 23:59 23:59 23:59 23:59 Intake Total 2049 Balance 2049 Weight 74.843 kg Constitutional Constitutional: no acute distress and agitated *Routine HEENT Exam Head: Present normocephalic and atraumatic Eye: Present EOMI, PERRL and normal accommodation ENT: Present mucous membranes moist *Routine Neck Exam Neck: Present supple, full ROM and trachea midline *Routine Respiratory Exam Respiratory: Present CTA bilaterally *Routine Cardiovascular Exam Cardiovascular: Present RRR, Normal S1 and Normal S2 *Routine Abdominal Exam Abdominal: Present ostomy *Routine Rectal Exam Rectal:: deferred *Routine Genitalia Exam Genitalia:: deferred *Routine Extremities Exam Extremities: Present full ROM and pulses intact Routine Back/Spine/Pelvis Exam Back/Spine: Present full ROM *Routine Skin Exam Skin: Present dry and warm *Routine Neurological Exam Neurological: Present alert, oriented X3, CN II-XII intact and moving all extremities Routine Psychiatric Exam Psychiatric: Present normal affect, normal thought process, good insight and good judgment H&P: Result Impressions 74-year-old female who presents with hypotension, abdominal pain, and worsening creatinine Assessment and Plan *Assessment and plan (1) Urinary tract infection: Status: Acute Qualifiers: Urinary tract infection type: site unspecified Hematuria presence: without hematuria Qualified Code(s): N39.0 - Urinary tract infection, site not specified Category: Medical Code(s): N39.0 - Urinary tract infection, site not specified (2) Hypotension: Status: Acute Qualifiers: Hypotension type: other hypotension type Qualified Code(s): I95.89 - Other hypotension Category: Medical Code(s): I95.9 - Hypotension, unspecified (3) Acute kidney injury superimposed on CKD: Status: Acute Category: Medical Code(s): N17.9 - Acute kidney failure, unspecified; N18.9 - Chronic kidney disease, unspecified (4) Thrombocytosis: Status: Acute Category: Medical Code(s): D75.839 - Thrombocytosis, unspecified (5) Abdominal pain: Status: Acute Qualifiers: Abdominal location: unspecified location Qualified Code(s): R10.9 - Unspecified abdominal pain Category: Medical Code(s): R10.9 - Unspecified abdominal pain Plan Assessment: Urinary tract infection - Patient does have a significant amount of a epithelial cells seen on urinalysis concerns for contamination - Will continue 1 g Rocephin IV daily - Patient's urine culture and will tailor antibiotics to the sensitivity once posted Hypotension - Improved - Will continue normal saline at 150 mL an hour - Will hold antihypertensives - Will give opioids if safe to administer to be more specific systolic blood pressure greater than 100 and mean arterial pressure greater than 65 Acute on chronic renal impairment - Baseline creatinine appears to be around 1.10 - May be prerenal due to hypertension and hypotensive - There was also mention of increased output from the ostomy but patient states this is normal - Will consider urine studies if creatinine does not improve with IV hydration - Will consider renal ultrasound Thrombocytosis - Appears to be chronic Abdominal pain - Will give patient his home medication of 10 mg oxycodone p.o. every 4 hours as needed moderate pain - Will give 0.25 mg of hydromorphone IV push every 4 hours as needed severe pain - I have given strict guidance to nursing staff to only administer opioids if safe meaning blood pressure must be greater than 100 and mean arterial pressure greater than 65 Plan: Admit patient to the MedSur unit Case management Cardiac diet CBC/BMP daily 40 mg Lovenox subcu daily for DVT prophylaxis 4 mg Zofran IV push every 8 hours pain nausea vomiting X 2 Full code I have discussed this case with attending physician Dr. Weiss and I look forward to more input
[2025-02-05] MEDS: 0.9 % SODIUM CHLORIDE 1000ML 1,000 ML 150 ML IV (19:02)
[2025-02-05] MEDS: OXYCODONE 5MG IMMEDIATE RELEASE TABLET 10 MG PO ×2 (19:13→23:34)
[2025-02-05 19:34] LABS: Reflex Lactic Add Lactic Reflex
[2025-02-05 20:22] LABS: Lactic Acid Follow Up (RFLX 1) 2.9 mmol/L (0.7-2.1)
[2025-02-05] MEDS: HYDROMORPHONE 2MG/ML SYRINGE 0.25 MG IV (21:21)
[2025-02-05 22:05] LABS: Reflex Lactic (2 hrs) Add Lactic Reflex
[2025-02-05 22:43] LABS: Lactic Acid Follow up (RFLX 2) 4.6 mmol/L (0.7-2.1)
[2025-02-05] MEDS: RINGERS SOLUTION,LACTATED 500 ML IV (22:47)
[2025-02-06] MEDS: HYDROMORPHONE 2MG/ML SYRINGE 0.25 MG IV ×3 (01:37→10:53)
--- NOTE | 2025-02-06 02:31 | PC.NURSE ---
Pt AOx4, pleasant. Continually reports abdominal pain, which has been treated with prn meds per MAR with some relief. BP remains stable. Pt changed ileostomy. NS running at 150mL/hr. Currently resting in bed with eyes open. Respirations even and unlabored. Bed low, locked, and call light is in reach.
[2025-02-06] MEDS: 0.9 % SODIUM CHLORIDE 1000ML 1,000 ML 150 ML IV (03:36)
[2025-02-06] MEDS: OXYCODONE 5MG IMMEDIATE RELEASE TABLET 10 MG PO ×2 (03:36→08:41)
[2025-02-06 03:52] VITALS: BP 102/56; PULSE 87; RESP 14; TEMP 36.7; O2SAT 99; BMI 32.6
[2025-02-06 06:22] LABS: Hematocrit 29.8 % (37.0-47.0); Immature Granulocytes % 0.3 %; Mean Corpuscular HGB Conc 32.2 g/dL (31.8-35.4); Mean Corpuscular Hemoglobin 29.6 pg (27.0-31.2); Mean Corpuscular Volume 92.0 fl (81-99); Nucleated Red Blood Cells % 0 %; Platelet Count 376 K/mm3 (142-424); Red Blood Count 3.24 M/mm3 (4.20-5.40); Red Cell Distribution Width-SD 45.3 fL; White Blood Count 7.7 K/mm3 (4.8-10.8)
[2025-02-06 06:30] LABS: Chloride 109 mmol/L (98-107); Potassium 3.5 mmoL/L (3.5-5.1); Sodium 136 mmol/L (136-145)
[2025-02-06 06:33] LABS: Anion Gap 9.5 mEq/L (5-15); Carbon Dioxide 21 mmol/L (22.0-30.0)
[2025-02-06 06:34] LABS: Calcium 7.9 mg/dl (8.4-10.2); Glucose 81 mg/dl (74-100)
[2025-02-06 06:35] LABS: Hemoglobin 9.4 g/dL (12.2-16.2)
[2025-02-06 06:38] LABS: Blood Urea Nitrogen 17 mg/dl (7-17); Creatinine Clearance Estimated 60 mL/min (50-200); Creatinine,Serum 1.10 mg/dl (0.52-1.04); Estimated Glomerular Filt Rate 49 ml/min (>60); GFR (African American) 59 ML/MIN (>60)
[2025-02-06 07:43] VITALS: BP 115/61; PULSE 93; RESP 20; TEMP 36.4; O2SAT 100
--- NOTE | 2025-02-06 08:33 | XR_ITS ---
FINAL REPORT CLINICAL HISTORY: abdominal pain, f/u ileus FINDINGS: ABDOMEN SINGLE VIEW There is a nonspecific, nonobstructive bowel gas pattern. No abnormal dilatation is identified. There is a moderate amount of retained stool throughout the colon. There is no abnormal calcification. There are bilateral hip prostheses. Postoperative changes are seen in the mid left abdomen. IMPRESSION: Moderate stool burden. Reviewed, Interpreted and Dictated by Celestine Jones MD Transcribed by Virginie Baker Authenticated and . [facility] [place]
[2025-02-06] MEDS: NYSTATIN CREAM 30GM/TUBE TP (08:40)
[2025-02-06] MEDS: TIZANIDINE 4MG TABLET 4 MG PO (08:41)
[2025-02-06] MEDS: LEVOTHYROXINE 25MCG (0.025MG) TAB 25 MCG PO (08:41)
--- NOTE | 2025-02-06 09:25 | HMH.PHAAMS2 ---
- Antimicrobial Stewardship Review culture & sensitivity review Stewardship interventions: culture & sensitivity review, reviewed - no change Comments: uti treatment empirically with ceftriaxone
[2025-02-06] MEDS: POLYETHYLENE GLYCOL 3350 17 GM PACKET PO (10:54)
--- NOTE | 2025-02-06 12:25 | EXP.DC.SUM ---
General Admission date:: 02/05/25 HPI HPI HPI: This is a 74-year-old female who has a past medical history significant for hypertension, anemia, obesity, chronic kidney disease, systolic murmur, ischemic bowel disease, paroxysmal atrial fibrillation, C. difficile, ileostomy placement, IBS, hyperlipidemia, and vitamin D deficiency who presents with low blood pressure and abdominal pain. Due to patient's symptoms, she presented to the emergency room for evaluation. While in emergency room, patient's presenting creatinine was elevated from her known baseline. She was hypotensive. As a result, patient is being admitted for further management. During my evaluation of the patient, patient was requesting pain medication. I informed patient that she would be able to request pain medication; however, if her blood pressure was less than 100 systolic or mean arterial pressure was subtherapeutic that the patient staff may not administer opioids due to unsafe drop in blood pressure. Spouse and patient were dissatisfied with these results in the voice their concerns. Moreover, they appear to be argumentative concerning the pain medication administration. I highlighted with the nursing staff my instructions to only administer opioids if blood pressure was safe. Nursing staff voiced an understanding. She did present due to abdominal pain and low blood pressure. She presented last night to the [facility] with elevated blood pressure and abdominal pain. CT scan of the abdomen and pelvis revealed moderate bowel wall thickening and surrounding edema referable to the distal bowel at the ostomy and within the peritoneal cavity in keeping with acute enteritis, associated fluid distended distal bowel most in keeping with ileus associated with enteritis. Patient was discharged home with hydralazine and responded to labetalol (her blood pressure was in the 200s systolic). Patient states she did not take any of the hydralazine when she got home. She is currently complaining of 10 out of 10 abdominal pain. Chest x-ray was negative for any acute cardiopulmonary process. Additional pertinent vitals obtained include a red blood cell count of 3.93, hemoglobin [place] 0.8, hematocrit 36.7, platelet count of 495, sodium 135, BUN 26, creatinine 1.80, GFR 28, a urinalysis revealed 2 3-red blood cells/10-L/5-10 epithelial/4+ bacteria. Hospital Course Hospital Course Hospital Course: Farrah Calixto is a 74-year-old female who presented with abdominal pain, low blood pressures and was admitted for enteritis, ileus, hypotension, TIP, UTI. #Enteritis #Ileus #UTI #Hypotension #TIP ? Patient presented with abdominal pain, blood pressures with systolics between 70s and 90s. Initial creatinine 1.8, baseline 1.1. ? Enteritis, ileus suggested by CT abdomen on initial ED visit for abdominal pain. Discharged with hydralazine as needed for elevated blood pressures at that time, patient has not taken this. ? Patient does take amlodipine 5 mg, losartan 75 mg, and clonidine 0.1 mg twice daily for hypertension. ? Patient states she has had a lot of life stressors recently, has not had an appetite or eating as much. She does state that she has been drinking normally though. ? 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 Diarrhea panel 2 days ago normal. ? Urinalysis grossly abnormal with urinary symptoms, urine culture pending at this time. UTI treated with IV ceftriaxone. ? Hypotension resolved with IV fluid resuscitation, started renal function. Creatinine back to baseline. Blood pressure currently 115/61. ? Patient having normal bowel movements, abdominal pain also significantly improved. ? Patient does have chronic lower abdominal pain since ileostomy, takes hydrocodone and Dilaudid as needed for pain at home. ? Discharged with cefdinir 300 mg twice daily for 4 more days. Advised to hold amlodipine, losartan due to initial hypotension until follow-up with PCP. #Chronic pain syndrome ? Since ileostomy. Continue home [place], Dilaudid. Managed by PCP. #Anxiety/depression ? Continue home duloxetine 120 mg, amitriptyline 50 mg. Exam Data for Last 24 hours Vital signs and Labs for Last 24 Hours: Temp Pulse Resp BP Pulse Ox O2 Del Method 97.6 F 93 H 20 115/61 100 Room Air 02/06/25 07:43 02/06/25 07:43 02/06/25 07:43 02/06/25 07:43 02/06/25 07:43 02/06/25 10:14 Laboratory Results - last 24 hr 02/05/25 15:27: WBC 10.6 D, RBC 3.93 L, Hgb 11.8 L, Hct 36.7 L, MCV 93.4, MCH 30.0, MCHC 32.2, RDW 13.6, Plt Count 495 H, MPV 9.0, Neut % (Auto) 68.7, Lymph % (Auto) 19.4, [place] % (Auto) 7.9, Eos % (Auto) 3.1, Baso % (Auto) 0.5, Neut # (Auto) 7.3, Lymph # (Auto) 2.1, [place] # (Auto) 0.8, Eos # (Auto) 0.3, Baso # (Auto) 0.1, PT 10.6, INR 0.95, APTT 23.7, Sodium 135 L, Potassium 4.3, Chloride 101, Carbon Dioxide 23, Anion Gap 15.3 H, BUN 26 H, Creatinine 1.80 H D, Estimated Creat Clear 33, Estimated GFR 28 L, Est GFR ( Amer) 33 L D, Glucose 96 D, Lactate 2.1, Calcium 9.3, Magnesium 1.8 D, Total Bilirubin 0.6, AST 24, ALT 19, Alkaline Phosphatase 102, Total Protein 7.4, Albumin 4.9, Globulin 2.5, Albumin/Globulin Ratio 2.0 H 02/05/25 15:55: Urine Color Yellow, Urine Appearance Clear, Urine pH 6.0, Ur Specific [place] 1.015, Urine Protein Trace, Urine Glucose (UA) Negative, Urine Ketones Negative, Urine Blood Negative, Urine Nitrate Negative, Urine Bilirubin Negative, Urine Urobilinogen 0.2, Ur Leukocyte Esterase Negative, Urine RBC 3-5, Urine WBC 10-20, Ur Squamous Epith Cells 5-10, Urine Bacteria 4+ 02/05/25 20:01: Lactate 2.9 H 02/05/25 22:20: Lactate 4.6 H 02/06/25 05:59: WBC 7.7 D, RBC 3.24 L, Hgb 9.4 L D, Hct 29.8 L, MCV 92.0, MCH 29.6, MCHC 32.2, RDW 13.4, Plt Count 376, MPV 9.1, Neut % (Auto) 61.6, Lymph % (Auto) 23.5, [place] % (Auto) 8.1, Eos % (Auto) 5.7, Baso % (Auto) 0.8, Neut # (Auto) 4.8, Lymph # (Auto) 1.8, [place] # (Auto) 0.6, Eos # (Auto) 0.4, Baso # (Auto) 0.1, Sodium 136, Potassium 3.5, Chloride 109 H, Carbon Dioxide 21 L, Anion Gap 9.5, BUN 17 D, Creatinine 1.10 H D, Estimated Creat Clear 60, Estimated GFR 49 L, Est GFR ( Amer) 59 D, Glucose 81, Calcium 7.9 L I & O for Last 24 hours: Intake & Output 02/03/25 02/04/25 02/05/25 02/06/25 23:59 23:59 23:59 23:59 Intake Total 2550 / 2790 2390 / 2390 Output Total 0 / 0 0 / 0 Balance 2550 / 2790 2390 / 2390 Weight 82.724 kg 83.574 kg Constitutional Constitutional: no acute distress *Routine HEENT Exam Head: Present normocephalic Eye: Present EOMI and PERRL ENT: Present mucous membranes moist *Routine Neck Exam Neck: Present supple; Absent lymphadenopathy *Routine Respiratory Exam Respiratory: Present CTA bilaterally *Routine Cardiovascular Exam Cardiovascular: Present RRR *Routine Abdominal Exam Abdominal: Present soft and normoactive bowel sounds; Absent tenderness Comments: Ileostomy site intact. *Routine Extremities Exam Extremities: Absent cyanosis, clubbing or edema *Routine Skin Exam Skin: Present warm; Absent rash *Routine Neurological Exam Neurological: Present alert and oriented X3 Results Data Completed and Pending Labs on day of discharge: Labs from last 24 hours 02/06/25 02/05/25 02/05/25 05:59 22:20 20:01 WBC 7.7 D RBC 3.24 L Hgb 9.4 L D Hct 29.8 L MCV 92.0 MCH 29.6 MCHC 32.2 RDW 13.4 Plt Count 376 MPV 9.1 Neut % (Auto) 61.6 Lymph % (Auto) 23.5 [place] % (Auto) 8.1 Eos % (Auto) 5.7 Baso % (Auto) 0.8 Neut # (Auto) 4.8 Lymph # (Auto) 1.8 [place] # (Auto) 0.6 Eos # (Auto) 0.4 Baso # (Auto) 0.1 PT INR APTT Sodium 136 Potassium 3.5 Chloride 109 H Carbon Dioxide 21 L Anion Gap 9.5 BUN 17 D Creatinine 1.10 H D Estimated Creat Clear 60 Estimated GFR 49 L Est GFR ( Amer) 59 D Glucose 81 Lactate 4.6 H 2.9 H Calcium 7.9 L Magnesium Total Bilirubin AST ALT Alkaline Phosphatase Total Protein Albumin Globulin Albumin/Globulin Ratio Urine Color Urine Appearance Urine pH Ur Specific [place] Urine Protein Urine Glucose (UA) Urine Ketones Urine Blood Urine Nitrate Urine Bilirubin Urine Urobilinogen Ur Leukocyte Esterase Urine RBC Urine WBC Ur Squamous Epith Cells Urine Bacteria 02/05/25 02/05/25 15:55 15:27 WBC 10.6 D RBC 3.93 L Hgb 11.8 L Hct 36.7 L MCV 93.4 MCH 30.0 MCHC 32.2 RDW 13.6 Plt Count 495 H MPV 9.0 Neut % (Auto) 68.7 Lymph % (Auto) 19.4 [place] % (Auto) 7.9 Eos % (Auto) 3.1 Baso % (Auto) 0.5 Neut # (Auto) 7.3 Lymph # (Auto) 2.1 [place] # (Auto) 0.8 Eos # (Auto) 0.3 Baso # (Auto) 0.1 PT 10.6 INR 0.95 APTT 23.7 Sodium 135 L Potassium 4.3 Chloride 101 Carbon Dioxide 23 Anion Gap 15.3 H BUN 26 H Creatinine 1.80 H D Estimated Creat Clear 33 Estimated GFR 28 L Est GFR ( Amer) 33 L D Glucose 96 D Lactate 2.1 Calcium 9.3 Magnesium 1.8 D Total Bilirubin 0.6 AST 24 ALT 19 Alkaline Phosphatase 102 Total Protein 7.4 Albumin 4.9 Globulin 2.5 Albumin/Globulin Ratio 2.0 H Urine Color Yellow Urine Appearance Clear Urine pH 6.0 Ur Specific [place] 1.015 Urine Protein Trace Urine Glucose (UA) Negative Urine Ketones Negative Urine Blood Negative Urine Nitrate Negative Urine Bilirubin Negative Urine Urobilinogen 0.2 Ur Leukocyte Esterase Negative Urine RBC 3-5 Urine WBC 10-20 Ur Squamous Epith Cells 5-10 Urine Bacteria 4+ DS: Diagnosis Discharge Diagnosis (1) Urinary tract infection: Status: Acute Code(s): N39.0 - Urinary tract infection, site not specified Qualifiers: Hematuria presence: without hematuria Urinary tract infection type: site unspecified Qualified Code(s): N39.0 - Urinary tract infection, site not specified (2) Hypotension: Status: Acute Code(s): I95.9 - Hypotension, unspecified Qualifiers: Hypotension type: other hypotension type Qualified Code(s): I95.89 - Other hypotension (3) Acute kidney injury superimposed on CKD: Status: Acute Code(s): N17.9 - Acute kidney failure, unspecified; N18.9 - Chronic kidney disease, unspecified (4) Thrombocytosis: Status: Acute Code(s): D75.839 - Thrombocytosis, unspecified (5) Abdominal pain: Status: Acute Code(s): R10.9 - Unspecified abdominal pain Qualifiers: Abdominal location: unspecified location Qualified Code(s): R10.9 - Unspecified abdominal pain Meds Home Medications and Allergies Home Medications ?Medication ?Instructions ?Recorded ?Confirmed ?Type amitriptyline 50 mg tablet 50 mg PO HS #30 tabs 03/04/24 02/05/25 Rx aripiprazole 2 mg tablet 2 mg PO DAILY 05/09/24 02/05/25 History ergocalciferol (vitamin D2) 1,250 1,250 mcg PO WEEKLY #4 caps 07/07/24 02/05/25 Rx mcg (50,000 unit) capsule atorvastatin 40 mg tablet 40 mg PO DAILY #90 tabs 10/16/24 02/05/25 Rx diphenoxylate-atropine 2.5 1 tab PO TID 90 days #270 tabs 11/26/24 02/05/25 Rx mg-0.025 mg tablet ciclopirox 0.77 % topical gel 1 applic topical DAILY 11/30/24 02/05/25 History dicyclomine 10 mg capsule 10 mg PO TIDP PRN abdominal pain 11/30/24 02/05/25 History duloxetine 60 mg capsule,delayed 60 mg PO BID 11/30/24 02/06/25 History release furosemide 40 mg tablet 40 mg PO DAILYP PRN Edema #30 tabs 01/02/25 02/05/25 Rx estradiol 0.25 mg/0.25 gram (0.1 1 packet transdermal DAILY 01/08/25 02/05/25 History %) transdermal gel packet nystatin 100,000 unit/gram topical 1 applic topical BID Rash #30 grams 01/08/25 02/05/25 Rx cream oxycodone 10 mg tablet 10 mg PO Q4HP PRN Moderate Pain 01/08/25 02/05/25 Rx (Scale Score 5-6) #180 tabs amlodipine 5 mg tablet 5 mg PO HS #90 tabs 01/11/25 02/05/25 Rx Held on 02/06/25. Instructions: Resume on 02/20/25. Your blood pressures were low on arrival. Please hold this medication until follow-up with PCP. levothyroxine 25 mcg tablet 25 mcg PO DAILY #90 tabs 01/11/25 02/05/25 Rx losartan 50 mg tablet 75 mg (1.5 x 50 mg) PO DAILY #135 01/11/25 02/05/25 Rx Held on 02/06/25. tabs Instructions: Resume on 02/20/25. Hold this medication until blood pressure is consistently above 140/90 at home. clonidine HCl 0.1 mg tablet 0.1 mg PO BID 02/05/25 02/05/25 History tizanidine 4 mg tablet 4 mg PO TID muscle spasticity 02/05/25 02/05/25 History cefdinir 300 mg capsule 300 mg PO BID 4 days #8 caps 02/06/25 Rx levetiracetam 500 mg tablet 500 mg PO BID 02/06/25 02/06/25 History New Prescriptions to Start Prescriptions: cefdinir Timothy Weiss Allergies Allergy/AdvReac Type Severity Reaction Status Date / Time ciprofloxacin (From Cipro) Allergy Intermediate Muscle Pain Verified 01/15/25 11:20 levofloxacin (From Levaquin) AdvReac Rash Verified 01/15/25 11:20 Discharge Plan Disposition Patient Disposition: Home, Self-Care Condition: Fair Follow up Plan Follow up with: Connor Gomez MD [Primary Care Provider, Family Practice] - 02/13/25 1:00 pm Prescriptions/Medication Reconciliation: New cefdinir 300 mg capsule 300 mg PO BID 4 Days Qty: 8 0RF Continued amitriptyline 50 mg tablet 50 mg PO HS Qty: 30 12RF aripiprazole 2 mg tablet 2 mg PO DAILY estradiol 0.25 mg/0.25 gram (0.1 %) gel in packet 1 packet transdermal DAILY nystatin 100,000 unit/gram cream 1 applic TOPICAL BID Qty: 30 5RF oxycodone 10 mg tablet 10 mg PO Q4HP MDD No> 6/day PRN (Reason: Moderate Pain (Scale Score 5-6)) Qty: 180 0RF ergocalciferol (vitamin D2) 1,250 mcg (50,000 unit) capsule 1,250 mcg PO WEEKLY Qty: 4 1RF atorvastatin 40 mg tablet 40 mg PO DAILY Qty: 90 3RF diphenoxylate-atropine 2.5-0.025 mg tablet 1 tab PO TID 90 Days Qty: 270 3RF furosemide 40 mg tablet 40 mg PO DAILYP PRN (Reason: Edema) Qty: 30 1RF levothyroxine 25 mcg tablet 25 mcg PO DAILY Qty: 90 3RF dicyclomine 10 mg capsule 10 mg PO TIDP PRN (Reason: abdominal pain) ciclopirox 0.77 % gel 1 applic topical DAILY Rx Instructions: Apply daily to affected toenail. Smooth with emery board weekly. duloxetine 60 mg capsule,delayed release(DR/EC) 60 mg PO BID clonidine HCl 0.1 mg tablet 0.1 mg PO BID tizanidine 4 mg tablet 4 mg PO TID levetiracetam 500 mg tablet 500 mg PO BID Held amlodipine 5 mg tablet 5 mg PO HS Qty: 90 3RF Hold Instructions: Resume on 02/20/25. Your blood pressures were low on arrival. Please hold this medication until follow-up with PCP. losartan 50 mg tablet 75 mg PO DAILY Qty: 135 3RF Hold Instructions: Resume on 02/20/25. Hold this medication until blood pressure is consistently above 140/90 at home. Discontinued sulfamethoxazole-trimethoprim 400-80 mg tablet 1 tab PO DAILY 90 Days Qty: 90 3RF Problem Reconciliation Problems Reviewed?: Yes Patient Discharge Instructions Patient Instructions: DI for Urinary Tract Infection (UTI), Stop Light Infection Print Language: Urdu Providers Primary Care Provider: Connor Gomez Admit Provider: Timothy Weiss Attending Provider: Timothy Weiss
--- NOTE | 2025-02-09 11:28 | SW/DCPLANNER ---
Spoke with patient on the phone. Patient stated that she is aware of her upcoming appointments. Patient stated that she is doing good. Patient stated that she was able to get her new medicine picked up from the pharmacy. Patient stated that she has no concerns or questions at this time. Steffany Spence
== END 2025-02-06 13:12 | disposition home or self-care (01) ==
LOC: ER 17:25 → 2ND 17:25
PROVIDERS: Nurse Practitioner Family; Admitting Provider Student in an Organized Health Care Education/Training Program; Emergency Provider Student in an Organized Health Care Education/Training Program; PCP Family Medicine; Visit Provider Student in an Organized Health Care Education/Training Program
DX: N39.0 Urinary tract infection, site not specified (principal); I95.89 Other hypotension; I12.9 Hypertensive chronic kidney disease with stage 1 through stage 4 chronic kidney disease, or unspecified chronic kidney disease; N17.9 Acute kidney failure, unspecified; N18.9 Chronic kidney disease, unspecified; D75.839 Thrombocytosis, unspecified; K52.9 Noninfective gastroenteritis and colitis, unspecified; K56.7 Ileus, unspecified; G89.29 Other chronic pain; F41.9 Anxiety disorder, unspecified; F32.A Depression, unspecified; E66.9 Obesity, unspecified; I48.91 Unspecified atrial fibrillation; E03.9 Hypothyroidism, unspecified; E78.5 Hyperlipidemia, unspecified; Z93.2 Ileostomy status; Z88.1 Allergy status to other antibiotic agents; Z68.32 Body mass index [BMI] 32.0-32.9, adult; Z79.890 Hormone replacement therapy; Z79.891 Long term (current) use of opiate analgesic; Z79.899 Other long term (current) drug therapy
CPT/HCPCS: 71045; 74018; 80048; 80053; 81001; 83605; 83735; 85025; 85610; 85730; 87040; 87086; 93005; 96361; 96365; 96372; 96375; 96376; 99285; G0378; J0696; J1171; J1650; J7030; J7120

== ENCOUNTER 2025-02-12 09:32 | Outpatient (CLI) | payer MEDICARE, SELFPAY ==
[2025-02-12 20:11] LABS: Hematocrit 35.0 % (37.0-47.0); Hemoglobin 11.1 g/dL (12.2-16.2); Immature Granulocytes % 0.3 %; Mean Corpuscular HGB Conc 31.7 g/dL (31.8-35.4); Mean Corpuscular Hemoglobin 29.4 pg (27.0-31.2); Mean Corpuscular Volume 92.6 fl (81-99); Nucleated Red Blood Cells % 0 %; Platelet Count 423 K/mm3 (142-424); Red Blood Count 3.78 M/mm3 (4.20-5.40); Red Cell Distribution Width-SD 44.7 fL; White Blood Count 7.9 K/mm3 (4.8-10.8)
[2025-02-12 20:45] LABS: Carbon Dioxide 26 mmol/L (22.0-30.0); Chloride 100 mmol/L (98-107); Potassium 3.5 mmoL/L (3.5-5.1); Sodium 135 mmol/L (136-145)
[2025-02-12 20:46] LABS: Anion Gap 12.5 mEq/L (5-15); Blood Urea Nitrogen 19 mg/dl (7-17); Calcium 9.7 mg/dl (8.4-10.2); Creatinine,Serum 1.10 mg/dl (0.52-1.04); Estimated Glomerular Filt Rate 49 ml/min (>60); GFR (African American) 59 ML/MIN (>60); Glucose 88 mg/dl (74-100)
== END 2025-02-12 23:59 ==
LOC: LAB.DROPOF 02-16 09:33
PROVIDERS: PCP Family Medicine; Visit Provider Family Medicine
DX: N18.9 Chronic kidney disease, unspecified (principal); D64.9 Anemia, unspecified
CPT/HCPCS: 80048; 85025

== ENCOUNTER 2025-02-19 23:18 | Observation (INO) | payer MEDICARE, SELFPAY ==
--- OUTSIDE RECORDS SUMMARY | 2024-04-17 06:45 | XMS_ITS ---
Author Organization [facility] Address [address] [place] [address] Care Team Providers Care Director Multiple Sclerosis Center Name Role Phone Timothy Granda DO Primary Care Provider Tha Chaudhry Unavailable [phone] Jesus Rose Unavailable REASON FOR VISIT NEW PATIENT Encounters Encounter Location Date Provider Diagnosis [facility] [address] [place] [address] 04/17/2024 Jesus Rose Plan Of Treatment No Information Progress Notes * KRISTACIERRA MonroeMaryellenOB:[birth year] (74 yo F)Acc No.[id number]:04/17/2024 Progress Notes Patient: Farrah SEAY Provider: Leelee Rose :1950 A ge:73 Y S ex:Female Date:04/17/2024 [facility] Pcp:Timothy Granda DO Subjective: * Chief Complaints: * 1 . NEW PATIENT. * Medical History: Objective: * Vitals: Assessment: Plan: * Treatment: * * Electronic signature of Reza Rose APRN on 02/19/2025 at 11:40 PM EST Sign off status: Pending * Provider: Leelee Rose Date: 0 04/17/2024 Generated for Brisa conway/Sahra/Angela on: 04/21/2024 11:40 PM EST
--- OUTSIDE RECORDS SUMMARY | 2024-05-13 08:30 | XMS_ITS ---
Author Organization [facility] Address [address] [place] [address] Care Team Providers Care Health Promoter Name Role Phone Timothy Granda DO Primary Care Provider Tha Chaudhry Unavailable [phone] REASON FOR VISIT NEW PATIENT Encounters Encounter Location Date Provider Diagnosis [facility] [address] [place] [address] 05/13/2024 Tha Krishnamurthy Plan Of Treatment No Information Progress Notes * Giselle ATKINSONOB:[birth year] (74 yo F)Acc No.[id number]:05/13/2024 Progress Notes Patient: Farrah SEAY Provider: Sarabjit Krishnamurthy MD :1950 A ge:73 Y S ex:Female Date:05/13/2024 [facility] Pcp:Timothy Granda DO Subjective: * Chief Complaints: * 1 . NEW PATIENT. * Medical History: Objective: * Vitals: Assessment: Plan: * Treatment: * * Electronic signature of Didier Krishnamurthy MD on 02/19/2025 at 11:39 PM EST Sign off status: Pending * Provider: Sarabjit Krishnamurthy MD Date: 0 05/13/2024 Generated for Brisa conway/Sahra/eTnamsmitting on: 04/21/2024 11:39 PM EST
--- OUTSIDE RECORDS SUMMARY | 2024-06-17 08:30 | XMS_ITS ---
Author Organization [facility] Address [address] [place] [address] Care Team Providers Care Real Estate Leasing Agent Name Role Phone Timothy Granda DO Primary Care Provider Tha Chaudhry Unavailable [phone] REASON FOR VISIT NEW PATIENT Encounters Encounter Location Date Provider Diagnosis [facility] [address] [place] [address] 06/17/2024 Tha Krishnamurthy Plan Of Treatment No Information Progress Notes * Giselle ATKINSONOB:[birth year] (74 yo F)Acc No.[id number]:06/17/2024 Progress Notes Patient: Farrah SEAY Provider: Sarabjit Krishnamurthy MD :1950 A ge:73 Y S ex:Female Date:06/17/2024 [facility] Pcp:Timothy Granda DO Subjective: * Chief Complaints: * 1 . NEW PATIENT. * Medical History: Objective: * Vitals: Assessment: Plan: * Treatment: * * Electronic signature of Didier Krishnamurthy MD on 02/19/2025 at 11:41 PM EST Sign off status: Pending * Provider: Sarabjit Krishnamurthy MD Date: 0 06/17/2024 Generated for Brisa conway/Sahra/eTnamsmitting on: 04/21/2024 11:41 PM EST
--- OUTSIDE RECORDS SUMMARY | 2025-01-19 09:00 | XMS_ITS | Encounter Summary ---
Author Organization Healthcare Address [address] [place] [address] Care Team Providers Care Satellite Technician Name Role Phone Timothy Granda Primary Care Provider [phone] Reason for Referral * Consultation (Routine) - Authorized Specialty Diagnoses / Procedures Referred By Kendal quinones Referred To Contact Diagnoses Acute kidney injury Vitamin D deficiency Gutierrez Domínguez MD [address] [place] [address] Phone: tel: fax: Referral ID Status Reason Start Date Expiration Date V isits Requested Visits Authorized [id number] Authorized 01/19/2025 07/21/2026 1 1 Reason for Visit * Reason Comments Consult Encounter Details Date Type Department Care Team (Latest Contact Info) Description 01/19/2025 10:00 AM EDT Office Visit [facility] Nephrology, Bone & Mineral Metabolism [address], [address] [place] [address] Gutierrez Domínguez MD [address] [place] [phone] Acute kidney injury (Primary Dx); Vitamin [...] place to sleep or slept in a nursing home (including now)? 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 0 11/15/2023 CAGE Questionnaire Score 0 024 Utilities Answer Date Recorded In the past 12 months has th e [employer], gas, oil, or water company threatened to [...] Social Connections: Low Risk (04/12/2023) Received from [employer] ([place], [place], [place], [place]) Family and Community [...] Results Component Value Date TSH 1.72 07/22/2023 [id number] 78 (L) 09/01/2022 FREET4 1.5 07/22/2023 Imaging: [...] 2024 Electrolytes, acid/base, volume status wnl Urine: [place] Anatomy: normal appearing kidneys on CT abdomen [...] laboratory studies in the chart and at [facility] over the past several years. 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 Education provided was verbal [...] Expiration Date: 07/23/2026 [facility] Urinalysis with reflex microscopic (Culture NOT Included) Standing Status: Future Expected Date: 07/18/2025 Expiration Date: 07/23/2026 Release to patient in [facility]: Immediate Vitamin D 25 Hydroxy Standing Status: Future Expected Date: 07/18/2025 Expiration Date: 07/23/2026 Release to patient in [facility]: Immediate PTH Intact Total Standing Status: Future Expected Date: 07/18/2025 Expiration Date: 07/23/2026 [facility] Immediate Albumin-creatinine ratio, urine, random Standing Status: Future Expected Date: 07/18/2025 Expiration Date: 07/23/2026 [facility] Immediate Protein, Random, Urine with Creatinine Standing Status: Future Expected Date: 07/18/2025 Expiration Date: 07/23/2026 Release to patient in [facility]: Immediate Renal Function Panel, Plasma Standing Status: Future Expected Date: 07/18/2025 Expiration Date: 07/23/2026 Release to patient in [facility]: Immediate Cystatin C Standing Status: Future Expected Date: 07/21/2025 Expiration Date: 07/24/2026 [facility] Im[facility] [1] Follow Up Nephrology Standing [...] [1] Past Medical History: Diagnosis Date A-fib ([facility]) Abnormal findings on diagnostic imaging of other specified body structures Thickened endometrium TIP (acute kidney injury) ([facility]) 08/04/2022 Cr 1.38 on admission baseline .9 [...] disorders History of depression Protein calorie malnutrition ([facility]) 08/14/2022 Pt on TPN during previous admission, no evidence of continuing condition during this admission Sepsis, due to unspecified organism, unspecified whether acute organ dysfunction present ([facility]) 07/22/2023 Severe protein-calorie malnutrition ([facility]) 08/14/22 PICC and TPNEnteral tube feeds via [facility] Venous disease 08/04/2022 History of b/l venous iliac stents - on Eliquis [2] Patient Active Problem List Diagnosis Hx of Clostridium difficile infection Hypertension Hypothyroidism Paroxysmal atrial fibrillation ([facility]) Dysphagia Ileostomy in place ([facility]) Diverticulosis Intra-abdominal fluid collection Functional diarrhea Small [...] Social Connections: Low Risk (04/12/2023) Received from [employer] ([place], [place], [place], [place]) Family and Community [...] Results Component Value Date TSH 1.72 07/22/2023 [id number] 78 (L) 09/01/2022 FREET4 1.5 07/22/2023 Imaging: [...] 2024 Electrolytes, acid/base, volume status wnl Urine: [place] Anatomy: normal appearing kidneys on CT abdomen [...] laboratory studies in the chart and at [facility] over the past several years. [...] months Gutierrez Domínguez MD Division of Nephrology [facility] Counseling Documentation: The patient was counseled regarding COUNSELING TOPICS: diagnostic results, prognosis, risks and benefit of treatment options, risk factor reductions, instructions for management, patient and family education, medication changes, diagnostic impressions, Heart healthy diet, regular physical activity and weight control, Avoidance of NSAIDs and other nephrotoxins, and half-way nature of condition. Education provided was verbal [...] Expiration Date: 07/23/2026 Release to patient in [facility]: Immediate Urinalysis with reflex microscopic (Culture NOT Included) Standing Status: Future Expected Date: 07/18/2025 Expiration Date: 07/23/2026 Release to patient in [facility]: Immediate Vitamin D 25 Hydroxy Standing Status: Future Expected Date: 07/18/2025 Expiration Date: 07/23/2026 Release to patient in [facility]: Immediate PTH Intact Total Standing Status: Future Expected Date: 07/18/2025 Expiration Date: 07/23/2026 Release to patient in [facility]: Immediate Albumin-creatinine ratio, urine, random Standing Status: Future Expected Date: 07/18/2025 Expiration Date: 07/23/2026 Release to patient in [facility]: Immediate Protein, Random, Urine with Creatinine Standing Status: Future Expected Date: 07/18/2025 Expiration Date: 07/23/2026 Release to patient in [facility]: Immediate Renal Function Panel, Plasma Standing Status: Future Expected Date: 07/18/2025 Expiration Date: 07/23/2026 Release to patient in [facility]: Immediate Cystatin C Standing Status: Future Expected Date: 07/21/2025 Expiration Date: 07/24/2026 Release to patient in [facility]: Immediate [1] Follow Up Nephrology [...] C CKD stage 3a, GFR 45-59 ml/min ([facility]) Relevant Medications atorvastatin (Lipitor) 40 MG tablet furosemide (Lasix) 40 MG tablet Other Relevant Orders Cystatin C Chronic kidney disease-mineral and bone disorder (CKD-MBD) Relevant Medications atorvastatin (Lipitor) 40 MG tablet furosemide (Lasix) 40 MG tablet Secondary hyperparathyroidism of renal origin ([facility]) Hyperlipidemia Relevant Medications atorvastatin (Lipitor) 40 MG [...] disorders History of depression Protein calorie malnutrition ([facility]) 08/14/2022 Pt on TPN during previous admission, [...] Acute kidney injury Hypothyroidism Paroxysmal atrial fibrillation ([facility]) Dysphagia Ileostomy in place ([facility]) Diverticulosis Intra-abdominal fluid collection Functional diarrhea Small bowel stricture Vitamin D deficiency CKD stage 3a, GFR 45-59 ml/min ([facility]) Chronic kidney disease-mineral and bone disorder (CKD-MBD) Secondary hyperparathyroidism of renal origin ([facility]) Hyperlipidemia [3] Past Surgical History: Procedure Laterality Date BREAST LUMPECTOMY Left Left Breast Lumpectomy from [facility] SECTION, LOW TRANSVERSE N/A Section from [facility] ILEOSTOMY N/A ILEOSTOMY 09/10/2023 Ex Lap, small bowel resection x 2, creation of end ilesotomy ILEOSTOMY CLOSURE 05/24/2023 open closure of end ileostomy with ileosigmoid anastomosis. TOTAL HIP ARTHROPLASTY N/A Total Hip Replacement from [facility] TOTAL SHOULDER ARTHROPLASTY N/A Shoulder Arthroplasty Total Shoulder Replacement from [facility] TUBAL LIGATION N/A Tubal Ligation from [facility] [4] Family History Problem Relation Name Age [...] Upcoming Encounters Date Type Department Care Team ([facility] st Contact Info) Description 07/20/2025 10:40 AM EDT Office Visit [facility] [facility] Nephrology, Bone & Mineral Metabolism [address], [address] [place] [address] Gutierrez Domínguez MD [address] [place] [address] Scheduled Orders Name Type Priority Associated Diagnoses Orde r Schedule CBC W/O Differential Lab Routine Acute kidney injury ([facility]) Vitamin D deficiency Expected: 07/18/2025 (Approximate), Expires: [...] deficiency CKD stage 3a, GFR 45-59 ml/min ([facility]) Expected: 07/21/2025 (Approximate), Expires: 07/24/2026 Scheduled Referrals Name Type Priority Associated Diagnoses Order Schedule Follow Up Nephrology Outpatient Referral Routine Acute kidney injury ([facility]) Vitamin D deficiency Expected: 07/20/2025 (Approximate), Expires: 02/19/2026 documented as of this encounter Visit Diagnoses Diagnosis Acute kidney injury- Primary Vitamin D deficiency CKD stage 3a, GFR 45-59 ml/min ([facility]) Chronic kidney disease-mineral and bone disorder (CKD-MBD) Secondary hyperparathyroidism of renal origin ([facility]) Secondary hyperparathyroidism (of renal origin) Hypertension, unspecified type Hyperlipidemia, unspecified hyperlipidemia type documented in this encounter Additional Health Concerns Assessment Noted Time A fall risk assessment has been complete d for the patient 01/19/2025 10:00 AM EDT A Body Mass Index follow-up plan has been documented for the patient 01/20/2025 11:25 AM EDT documented as of this encounter Care Teams Satellite Technician Relationship Specialty Start Date End Date Timothy Granda DO [address] [place] [address] PCP - General 05/25/23 documented as of this encounter
--- OUTSIDE RECORDS SUMMARY | 2025-01-26 00:09 | XMS_ITS | Encounter Summary ---
Author Organization [facility] Address [address] [place] [id number] Care Team Providers Care Health Information Technician Name Role Phone Connor Gomez MD Primary Care Provider [phone] Reason for Visit * Auth/Cert Specialty Diagnoses / Procedures Referred By Contac t Referred To Contact Diagnoses Seizures Possible CVA Referral ID Status Reason Start Date Expiration Date Visits Re quested Visits Authorized [id number] 1 1 Encounter Details Date Type Department Care Team (Late st Contact Info) Description 01/26/2025 1:09 AM EDT - 01/29/2025 2:01 PM EDT Hospital Encounter [facility] [address] [place] [id number] Rayshawn Baldwin MD [address] [place] [address] Andrew Barkley MD [address] [place] [address] Meli Hernandez MD [address] [address] Jessica Valdovinos DO [address] [facility] [address] [place] [address] Cognitive communication deficit (Primary Dx); PRES (posterior [...] and heating? Patient unable to answer 01/26/2025 [facility] - [facility] Stress [...] things needed for daily living? No 01/26/2025 [facility] Utilities Answer Date Recorded In the past [...] Patient unable to answer 01/26/2025 Preferred Language Ghanaian 01/26/2025 Comments No Sex and Gender Information [...] from the original note were not included. [facility] Medicine Services DISCHARGE SUMMARY [...] and she underwent LP. At [facility], MRI of brain revealed motion artifact but [...] Date/Time Blood Culture - Blood, Arm, Right [[id number]] (Normal) Collected: 01/25/25 1405 Lab Status: Preliminary result Specimen: Blood from Arm, Right Updated: 01/29/25314 Blood Culture No growth at 3 days Blood Culture - Blood, Blood, Port [[id number]] (Normal) Collected: 01/25/25 1400 Lab Status: Preliminary [...] MD 01/27/2025 2:05 AM EDT Workstation ID: [id number] Result Date: 01/26/2025 Reason for referral: [...] present This report is transcribed using the Pivot dictation system. MRI Brain Without Contrast Result [...] MD 01/26/2025 1:54 AM EDT Workstation ID: [id number] CT Angiogram Head w AI Analysis of [...] MD 01/26/2025 1:54 AM EDT Workstation ID: [id number] CT Head Without Contrast Result Date: 01/26/2025 [...] MD 01/26/2025 1:46 AM EDT Workstation ID: [id number] Results for orders placed during the hospital [...] as: SYNTHROID, LEVOTHROID 25 mcg, Oral, Every Card Feeder oxyCODONE 5 MG capsule Commonly known as: OXY-IR 5 mg, Oral, Every 4 Hours PRN tiZANidine 4 MG tablet Commonly known as: ZANAFLEX 4 mg, Oral, Every 8 Hours PRN tretinoin 0.05 % cream Commonly known as: RETIN-A 1 Application, Topical, Nightly tretinoin 10 MG chemo capsule Commonly known as: VESANOID Oral, 2 Times Daily vitamin D 1.25 MG (94510 UT) capsule capsule Commonly known as: ERGOCALCIFEROL [...] minutes on this discharge activity which included: knqg-hz-wpypyieiivuyh with the patient, reviewing the data in the system, coordination of the care with the nursing staff as well as consultants, documentation, and entering orders. * Shabana Kim, OT Student - 01/28/2025 8:12 AM EDT Images from the original note were not included. Acute Care - Occupational Therapy Discharge [facility] Patient Name: Farrah Judgekarinalli : 1950 Today's Date: 01/28/2025 Admit Date: 01/26/2025 Visit Dx: ICD-10-CM ICD-9-CM 1. 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 ([facility], [place], [place]), advised stringent lifelong avoidance of all [...] ARTHROPLASTY RIGHT; Surgeon: Bautista Luis MD; Location: [facility]; Service: Orthopedics TUBAL ABDOMINAL LIGATION 1989 General [...] Mobility Bed Mobility supine-sit (P) -BT Supine-Sit [place] (Bed Mobility) modified independence (P) -BT Assistive Device (Bed Mobility) head of bed elevated (P) -BT Row Name 01/28/25834 Transfers Transfers sit-stand transfer;stand-sit transfer;bed-chair transfer (P) -BT Row Name 01/28/25834 Bed-Chair Transfer Bed-Chair [place] (Transfers) independent (P) -BT Row Name 01/28/25 Sit-Stand Transfer Sit-Stand [place] (Transfers) independent (P) -BT Row Name 01/28/25 Stand-Sit Transfer Stand-Sit [place] (Transfers) independent (P) -BT Row Name 01/28/25 Functional Mobility Functional Mobility- Ind. Level independent (P) -BT Functional Mobility-Distance (Feet) -- (P) HH distance -BT Row Name 01/28/25834 Activities of Daily Living BADL Assessment/Intervention upper body dressing;lower body dressing;grooming (P) -BT Row Name 01/28/25834 Hygiene Care Oral Care teeth brushed - regular toothbrush (P) -BT Row Name 01/28/25 Upper Body Dressing Assessment/Training [place] Level (Upper Body Dressing) don;doff;front opening garment;standby assist (P) -BT Position (Upper Body Dressing) edge of bed sitting (P) -BT Row Name 01/28/25834 Lower Body Dressing Assessment/Training [place] Level (Lower Body Dressing) don;doff;socks;independent (P) figure 4 -BT Position (Lower Body Dressing) edge of bed sitting (P) -BT Row Name 01/28/25 08 Grooming Assessment/Training [place] Level (Grooming) oral care regimen;wash face, hands;set [...] Student OT Student Goals/Plan Row Name 01/28/25 0836 Dressing Goal 1 (OT) Activity/Device (Dressing Goal 1, OT) upper body dressing;lower body dressing (P) -BT [place]/Cues Needed (Dressing Goal 1, OT) standby assist (P) -BT Time Frame (Dressing Goal 1, OT) short term goal (STG);5 days (P) -BT Progress/Outcome (Dressing Goal 1, OT) goal met (P) -BT Row Name 01/28/25 0870 Grooming Goal 1 (OT) Activity/Device (Grooming Goal 1, OT) hair care;oral care;wash face, hands (P) -BT [place] (Grooming Goal 1, OT) standby assist (P) -BT Time Frame (Grooming Goal 1, OT) 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 Therapies (In Progress) Topic: Occupational Therapy (In [...] Received On 01/28/25 (P) -BT Timed Charges 85895 - OT Self Care/Mgmt Minutes 24 (P) -BT Total Minutes Timed Charges Total Minutes 24 (P) -BT Total Minutes 24 (P) -BT User Thompson (r) = Recorded By, (t) = Taken By, (c) = Cosigned By Initials Name Provider Type BT Shabana Kim OT Student OT Student Therapy Charges for Today Code Description Service Date Service Provider Modifiers Qty [id number] HC OT SELF CARE/MGMT/TRAIN EA 15 MIN 01/28/2025 Shabana Kim OT Student GO 2 OT Discharge Summary Anticipated Discharge Disposition (OT): (P) home Reason for Discharge: (P) At baseline function Outcomes Achieved: (P) Refer to plan of care for updates on goals achieved Discharge Destination: (P) Home MALICK Curtis 01/28/2025 Cosigned by Florence Ramirez OT at 01/28/2025 10:17 AM EDT Associated attestation - Florence River OT - 01/28/2025 10:17 AM EDT EUGENIO Leon/Ciro 01/28/25 10:17AM documented in this encounter Discharge Instructions * Attachments The following attachments cannot be sent through Care Everywhere. * Levetiracetam Tablets (Ghanaian) * Toxic Metabolic Encephalopathy (Ghanaian) * Managing Your Hypertension (Ghanaian) documented in this encounter Medications at Time of Discharge amitriptyline (ELAVIL) 50 MG tablet Take 1 tablet by mouth Every Night. amLODIPine (NORVASC) 10 MG tablet TAKE 1 TABLET BY MOUTH ONCE DAILY 60 tablet 11 2 ARIPiprazole (ABILIFY) 2 MG tablet Take 1 tablet by mouth Daily. atorvastatin (LIPITOR) 20 MG tabletIndications:Pure hypercholesterolemia Take 1 tablet by mouth Daily. 90 tablet 1 2 ciclopirox (LOPROX) 0.77 % suspension Apply 1 Application topically to the appropriate area as directed Every 12 (Twelve) Hours. Apply daily to affected toenail cloNIDine (CATAPRES) 0.1 MG tablet Take 1 tablet by mouth Every 12 (Twelve) Hours. 60 tablet 5 025 dicyclomine (BENTYL) 10 MG capsule Take 1 capsule by mouth 3 (Three) Times a Day As Needed for Abdominal Cramping. diphenoxylate-atropine (LOMOTIL) 2.5-0.025 MG per tabletIndications:Irrita ble bowel syndrome with diarrhea Take 1 tablet by mouth 4 (Four) Times a Day As Needed for Diarrhea. 240 tablet 2 2 DULoxetine (CYMBALTA) 60 MG capsule Take 1 capsule by mouth Daily. 2 estradiol 0.25 MG/0.25GM gel Place 1 Application on the skin as directed by provider Daily. Fluticasone-Salmeterol (ADVAIR/WIXELA) 250-50 MCG/ACT DISKUS Inhale 1 puff 2 (Two) Times a Day. 60 each 5 2 furosemide (LASIX) 40 MG tablet TAKE ONE TABLET BY MOUTH EVERY DAY 30 tablet 11 2 HYDROmorphone (DILAUDID) 4 MG tablet Take 1 tablet by mouth Every 4 (Four) Hours As Needed for Moderate Pain. levETIRAcetam (KEPPRA) 500 MG tablet Take 1 tablet by mouth Every 12 (Twelve) Hours. 60 tablet 5 025 levothyroxine (SYNTHROID, LEVOTHROID) 25 MCG tablet Take 1 tablet by mouth Every Morning. losartan (COZAAR) 50 MG tablet Take 2 tablets by mouth Daily. 60 tablet 5 025 oxyCODONE (OXY-IR) 5 MG capsule Take 1 [...] a Day. vitamin D (ERGOCALCIFEROL) 1.25 MG (33420 UT) capsule capsule Take 1 capsule by mouth 1 (One) Time Per Week. documented as of this encounter Progress Notes * Shailesh Shaikh MD - 01/29/2025 2:01 PM EDT Enter Query Response Below Original note was corrected to reflect PRES If applicable, please update the problem list. * Olvin Peterson MD - 01/28/2025 11:52 [...] resulted in removal iof 13 precancerous polyps. 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 [facility] Medicine Services PROGRESS NOTE [...] No rashes Results Reviewed: LAB RESULTS: Lab 01/27/254 01/26/25 1044 01/26/25 0651 01/26/25 0328 01/26/25 [...] PHOS 120* LIPASE 20 Lab 01/26/25 0328 01/26/25208 HSTROP T 22* 23* PROTIME -- 13.9 [...] MD 01/27/2025 2:05 AM EDT Workstation ID: [id number] Results for orders placed during the hospital [...] and she underwent LP. At [facility], MRI of brain revealed motion artifact but [...] tract infections (UTIs). She was transferred from [facility] on 01/26/2025. She was found at home [...] patient snorts pain pills. History taken from: PMH/FH/Social History were reviewed and updated appropriately in [...] No driving for 3 months due to [place] statute. Okay to telemetry/hospitalist. 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 [...] from last 7 days Lab Units 01/27/25 0454 01/26/25 0209 SODIUM mmol/L 141 142 POTASSIUM mmol/L [...] Value Units Date/Time MRI Brain With Contrast [[id number]] Collected: 01/27/25199 Updated: 01/27/25207 Narrative: MRI BRAIN [...] MD 01/27/2025 2:05 AM EDT Workstation ID: [id number] Assessment: PRES. Solitary seizure Accelerated hypertension Plan: Continue Keppra 500 mg 3 times daily. Outpatient follow-up [facility] in 3 months. No driving or [...] to the ICU as a transfer from [facility] due to concerns for subarachnoid [...] resulted in removal iof 13 precancerous polyps. 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 [...] ARTHROPLASTY RIGHT; Surgeon: Bautista Luis MD; Location: [facility] OR; Service: Orthopedics TUBAL ABDOMINAL LIGATION 1989 Allergies [...] CONSULT TO INFECTIOUS DISEASES Farrah Atkinson 1950 [id number] Date of Consult: 01/26/2025 Date of Admission: [...] resulted in removal iof 13 precancerous polyps. 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 (retired, [place], [place]), advised stringent lifelong avoidance of all [...] ARTHROPLASTY RIGHT; Surgeon: Bautista Luis MD; Location: [facility]; Service: Orthopedics TUBAL ABDOMINAL LIGATION 1989 Pediatric [...] injection 2 mg 2 mg Intravenous Once Maru Martinez HOME SERVICE TECHNICIAN mupirocin (BACTROBAN) 2 % nasal ointment 1 Application 1 Application Each Nare BID Maru Martinez APRN 1 Application at 01/26/25 0246 sodium chloride 0.9 % flush 10 mL 10 mL Intravenous Q12H Maru Martinez, HOME SERVICE TECHNICIAN 10 mL at 01/26/25 0945 sodium chloride 0.9 % flush 10 mL 10 mL Intravenous PRN Maru Martinez, HOME SERVICE TECHNICIAN sodium chloride 0.9 % flush 10 mL [...] 40 mL 40 mL Intravenous PRN Maru Martinez APRN sodium chloride 0.9 % infusion 40 mL [...] Value Units Date/Time MRI Brain Without Contrast [[id number]] Collected: 01/26/25615 Updated: 01/26/25639 Narrative: MRI BRAIN [...] EDT Workstation ID: [id number] CT Outside Head [[id number]] Resulted: 01/26/25238 Updated: 01/26/25238 Narrative: This procedure was auto-finalized with no dictation required. CT Outside Spine [[id number]] Resulted: 01/26/25238 Updated: 01/26/25238 Narrative: This procedure was auto-finalized with no dictation required. CT Outside Spine [[id number]] Resulted: 01/26/25238 Updated: 01/26/25238 Narrative: This procedure was auto-finalized with no dictation required. CT Outside Spine [[id number]] Resulted: 01/26/25237 Updated: 01/26/25237 Narrative: This procedure was auto-finalized with no dictation required. CT Outside Abd/Pelvis [[id number]] Resulted: 01/26/25237 Updated: 01/26/25237 Narrative: This procedure was auto-finalized with no dictation required. CT Outside Abd/Pelvis [[id number]] Resulted: 01/26/25236 Updated: 01/26/25236 Narrative: This procedure was auto-finalized with no dictation required. CT Outside Chest [[id number]] Resulted: 01/26/25236 Updated: 01/26/25236 Narrative: This procedure was auto-finalized with no dictation required. CT Angiogram Neck [[id number]] Collected: 01/26/25147 Updated: 01/26/25156 Narrative: CT ANGIOGRAM [...] MD 01/26/2025 1:54 AM EDT Workstation ID: [id number] CT Angiogram Head w AI Analysis of LVO [[id number]] Collected: 01/26/25147 Updated: 01/26/25156 Narrative: CT ANGIOGRAM [...] MD 01/26/2025 1:54 AM EDT Workstation ID: [id number] CT Head Without Contrast [[id number]] Collected: 01/26/25144 Updated: 01/26/25148 Narrative: CT HEAD [...] MD 01/26/2025 1:46 AM EDT Workstation ID: [id number] PROBLEM LIST: PRES ( Posterior Reversible Encephalopathy Syndrome) H/o Hep C HTN Leukocytosis reactive H/o [...] included. Neurology Referring provider: Provider, [place] [address] Reason for Consultation: Altered mental state Chief [...] a Day. vitamin D (ERGOCALCIFEROL) 1.25 MG (93067 UT) capsule capsule Take 1 capsule by [...] resulted in removal iof 13 precancerous polyps. 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 She is oriented to [facility] but cannot tell me how old she [...] Component Value Units Date/Time POC Glucose Once [[id number]] Collected: 01/26/25 1219 Specimen: Blood Updated: 01/26/25 1222 Glucose 98 mg/dL Comment: Serial Number: [id number]: [id number] Amber Comment 1 Follow unit protocol STAT Lactic Acid, Reflex [[id number]] (Normal) Collected: 01/26/25 1044 Specimen: Blood Updated: 01/26/25 1133 Lactate 1.9 mmol/L Comment: Falsely depressed results may occur on samples drawn from patients receiving N-Acetylcysteine (NAC) or Metamizole. Hemoglobin A1c [[id number]] (Abnormal) Collected: 01/26/25650 Specimen: Blood from Arm, Right Updated: 01/26/25 0856 Hemoglobin A1C 5.67 % Narrative: Hemoglobin A1C Ranges: Increased Risk for Diabetes 5.7% to 6.4% Diabetes >= 6.5% Diabetic Goal < 7.0% Vancomycin, Random [[id number]] (Abnormal) Collected: 01/26/25650 Specimen: Blood from Arm, Right Updated: 01/26/25 0753 Vancomycin Random 42.10 mcg/mL Narrative: Therapeutic Ranges for Vancomycin Vancomycin Random 5.0-40.0 mcg/mL Vancomycin Trough 5.0-20.0 mcg/mL Vancomycin Peak 20.0-40.0 mcg/mL STAT Lactic Acid, Reflex [[id number]] (Abnormal) Collected: 01/26/25650 Specimen: Blood from Arm, Right Updated: 01/26/25 0724 Lactate 2.2 mmol/L Comment: Falsely depressed results may occur on samples drawn from patients receiving N-Acetylcysteine (NAC) or Metamizole. POC Glucose Once [[id number]] (Abnormal) Collected: 01/26/25 0520 Specimen: Blood Updated: 01/26/25 0523 Glucose 134 mg/dL Comment: Serial Number: [id number]: [id number] POC Glucose Once [[id number]] (Abnormal) Collected: 01/26/25 0238 Specimen: Blood Updated: 01/26/25 0506 Glucose 150 mg/dL Comment: Serial Number: [id number]: [id number] High Sensitivity Troponin T 1Hr [[id number]] (Abnormal) Collected: 01/26/25 0328 Specimen: Blood Updated: [...] condition. Fentanyl, Urine - Indwelling Urethral Catheter [[id number]] (Normal) Collected: 01/26/25256 Specimen: Urine from Indwelling Urethral Catheter Updated: 01/26/25339 Fentanyl, Urine Negative Narrative: Negative Threshold: Fentanyl [...] Urine Drug Screen - Indwelling Urethral Catheter [[id number]] (Abnormal) Collected: 01/26/25256 Specimen: Urine from Indwelling [...] Indicated (No Culture) - Indwelling Urethral Catheter [[id number]] (Abnormal) Collected: 01/26/25256 Specimen: Urine from Indwelling Urethral Catheter Updated: 01/26/25324 Color, UA Yellow Appearance, UA Clear pH, UA 5.5 Specific [place], UA >1.030 Glucose, UA Negative Ketones, UA Negative Bilirubin, UA Negative Blood, UA Moderate (2+) Protein, UA Trace Leuk Esterase, UA Small (1+) Nitrite, UA Negative Urobilinogen, UA 0.2 E.U./dL Urinalysis, Microscopic Only - Indwelling Urethral Catheter [[id number]] (Abnormal) Collected: 01/26/25256 Specimen: Urine from Indwelling Urethral Catheter Updated: 01/26/25 0325 RBC, UA 6-10 /HPF WBC, UA 11-20 /HPF Bacteria, UA None Seen /HPF Squamous Epithelial Cells, UA 0-2 /HPF Hyaline Casts, UA None Seen /LPF Methodology Automated Microscopy Blood Culture - Blood, Blood, Port [[id number]] Collected: 01/25/25 1400 Specimen: Blood, Port Updated: 01/26/25 0310 Blood Culture - Blood, Arm, Right [[id number]] Collected: 01/25/25 1405 Specimen: Blood from Arm, Right Updated: 01/26/25 0309 aPTT [[id number]] (Normal) Collected: 01/26/25208 Specimen: Blood Updated: 01/26/25255 PTT 26.2 seconds Narrative: PTT = The equivalent PTT values for the therapeutic range of heparin levels at 0.3 to 0.5 U/ml are 60 to 70 seconds. Protime-INR [[id number]] (Normal) Collected: 01/26/25208 Specimen: Blood Updated: 01/26/25255 Protime 13.9 Seconds INR 1.01 CK [[id number]] (Abnormal) Collected: 01/26/25208 Specimen: Blood Updated: 01/26/25249 Creatine Kinase 206 U/L Lipase [[id number]] (Normal) Collected: 01/26/25208 Specimen: Blood Updated: 01/26/25249 Lipase 20 U/L Lipid Panel [[id number]] (Abnormal) Collected: 01/26/25208 Specimen: Blood Updated: 01/26/25249 [...] calculated using the NIH LDL-C calculation. Magnesium [[id number]] (Normal) Collected: 01/26/25208 Specimen: Blood Updated: 01/26/25249 Magnesium 2.1 mg/dL Procalcitonin [[id number]] (Normal) Collected: 01/26/25208 Specimen: Blood Updated: 01/26/25249 [...] Day 4 values are available. Refer to http://www.aasnxm-yzr-[email or web address].com Change in PCT <=80% A decrease of [...] or septic shock. High Sensitivity Troponin T [[id number]] (Abnormal) Collected: 01/26/25208 Specimen: Blood Updated: 01/26/25249 [...] TSH Rfx On Abnormal To Free T4 [[id number]] (Normal) Collected: 01/26/25208 Specimen: Blood Updated: 01/26/25249 TSH 1.430 uIU/mL Comprehensive Metabolic Panel [[id number]] (Abnormal) Collected: 01/26/25208 Specimen: Blood Updated: 01/26/25249 [...] not include race as a factor Phosphorus [[id number]] (Normal) Collected: 01/26/25208 Specimen: Blood Updated: 01/26/25249 Phosphorus 3.6 mg/dL CBC & Differential [[id number]] (Abnormal) Collected: 01/26/25208 Specimen: Blood Updated: 01/26/25247 Narrative: The following orders were created for panel order CBC & Differential. Procedure Abnormality Status --------- ------ Manual Differential[[id number]] Abnormal Final result CBC Auto Differential[[id number]] Abnormal Final result Please view results for these tests on the individual orders. Manual Differential [[id number]] (Abnormal) Collected: 01/26/25208 Specimen: Blood Updated: 01/26/25247 [...] Normal Platelet Morphology Normal CBC Auto Differential [[id number]] (Abnormal) Collected: 01/26/25208 Specimen: Blood Updated: 01/26/25247 WBC 18.88 10*3/mm3 RBC 3.98 10*6/mm3 Hemoglobin 11.6 g/dL Hematocrit 35.6 % MCV 89.4 fL MCH 29.1 pg MCHC 32.6 g/dL RDW 13.6 % RDW-SD 45.1 fl MPV 9.4 fL Platelets 411 10*3/mm3 Lactic Acid, Plasma [[id number]] (Abnormal) Collected: 01/26/25208 Specimen: Blood Updated: 01/26/25244 Lactate 2.7 mmol/L Comment: Falsely depressed results may occur on samples drawn from patients receiving N-Acetylcysteine (NAC) or Metamizole. LSAC Slide Creation [[id number]] Collected: 01/26/25208 Specimen: Blood Updated: 01/26/25230 Calcium, Ionized [[id number]] (Normal) Collected: 01/26/25208 Specimen: Blood Updated: 01/26/25221 Ionized Calcium 1.15 mmol/L Rads: Imaging Results (Last 48 Hours) Procedure Component Value Units Date/Time MRI Brain Without Contrast [[id number]] Collected: 01/26/25615 Updated: 01/26/25639 Narrative: MRI BRAIN [...] EDT Workstation ID: [id number] CT Outside Head [[id number]] Resulted: 01/26/25238 Updated: 01/26/25238 Narrative: This procedure was auto-finalized with no dictation required. CT Outside Spine [[id number]] Resulted: 01/26/25238 Updated: 01/26/25238 Narrative: This procedure was auto-finalized with no dictation required. CT Outside Spine [[id number]] Resulted: 01/26/25238 Updated: 01/26/25238 Narrative: This procedure was auto-finalized with no dictation required. CT Outside Spine [[id number]] Resulted: 01/26/25237 Updated: 01/26/25237 Narrative: This procedure was auto-finalized with no dictation required. CT Outside Abd/Pelvis [[id number]] Resulted: 01/26/25237 Updated: 01/26/25237 Narrative: This procedure was auto-finalized with no dictation required. CT Outside Abd/Pelvis [[id number]] Resulted: 01/26/25236 Updated: 01/26/25236 Narrative: This procedure was auto-finalized with no dictation required. CT Outside Chest [[id number]] Resulted: 01/26/25236 Updated: 01/26/25236 Narrative: This procedure was auto-finalized with no dictation required. CT Angiogram Neck [[id number]] Collected: 01/26/25147 Updated: 01/26/25156 Narrative: CT ANGIOGRAM [...] MD 01/26/2025 1:54 AM EDT Workstation ID: [id number] CT Angiogram Head w AI Analysis of LVO [[id number]] Collected: 01/26/25147 Updated: 01/26/25156 Narrative: CT ANGIOGRAM [...] MD 01/26/2025 1:54 AM EDT Workstation ID: [id number] CT Head Without Contrast [[id number]] Collected: 01/26/25144 Updated: 01/26/25148 Narrative: CT HEAD [...] MD 01/26/2025 1:46 AM EDT Workstation ID: [id number] Assessment: Encephalopathy with possible seizure, improving. Episode [...] review and have that reviewed with Dr. Lim who was looking at it later today. [...] 01/26/2025 9:31 AM EDT Chart review for patient educator consult. At the time of this [...] Care Physician: Timothy Granda DO Referring Physician: [facility] ICU Provider Handedness: Unknown Race: Chief Complaint/Reason for Consultation: Altered mental status HPI Last Known Normal Date/Time: Unknown This patient is a 74-year-old female with past medical history significant for hypertension, hyperlipidemia, remote hep C, anxiety/depression, chronic pain, and reported polysubstance use who was admitted to [facility] with altered mental status. Spoke to [facility] Provider who was able to provide only limited history. ED Provider reportedly had suspicion for opiate/benzodiazepine use and gave reversal medications . Following medication administration, patient reportedly had a seizure and was loaded with 2 g Keppra and admitted to [facility]. CT imaging with and without contrast was obtained. Noncontrast CTh reportedly showed suspicion for trace SAH. LP was performed at OSH with results detailed below. Transfer to [facility] for higher level of care was requested in setting of finding of possible SAH. Patient was seen and examined immediately on arrival to [facility]. Patient is not alert but arouses easily [...] CTA H/N were obtained on arrival to [facility]. Imaging was significantly motion degraded but showed [...] resulted in removal iof 13 precancerous polyps. 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 08/04/21 Provider, MD Jean-Claude diphenoxylate-atropine (LOMOTIL) 2.5-0.025 MG per tablet Take [...] MD 01/26/2025 1:54 AM EDT Workstation ID: [id number] CT Angiogram Head w AI Analysis of LVO Result Date: 01/26/2025 Impression: Significantly limited exam due to motion artifact. The neck vasculature is not adequately evaluated. The intracranial vasculature is normal. There is no evidence of large vessel occlusion. Electronically Signed: Jesus Peterson MD 01/26/2025 1:54 AM EDT Workstation ID: [id number] CT Head Without Contrast Result Date: 01/26/2025 Impression: No acute intracranial abnormality. Electronically Signed: Jesus Peterson MD 01/26/2025 1:46 AM EDT Workstation ID: [id number] Assessment and Plan This patient is a [...] results as above. Patient was transferred to [facility] for higher level of care. On arrival to [facility], NIH score was 13 for altered mental status, no focal neurologic deficits appreciated. Stat CT imaging was obtained on arrival to [facility] which were motion degraded but showed no evidenceof SAH or other acute abnormality. LP at OSH 01/25/2025: WBC 2, RBC 1, glucose 105, protein 100, Gram stain and culture pending Antiplatelet VISITOR SERVICES INFORMATION ASSISTANT: None Anticoagulant VISITOR SERVICES INFORMATION ASSISTANT: None Acute encephalopathy Possible SAH reported on [...] stat CTh for any acute neurological change -PT/OT/CANDLE EXTRUSION MACHINE OPERATOR as appropriate Disposition: Patient is admitted to the ICU Case discussed with the patient, bedside RN, and [facility] ICU Providers. Thank you for the consult. Stroke neurology will continue to follow. Rayshawn Hercules PA-C [facility] [place] Cosigned by Rayshawn Camp MD at 01/26/2025 10:39 AM EDT Associated attestation - Rayshawn Camp MD - 01/26/2025 10:39 AM EDT There is no evidence of SAH on CTH performed at [facility]. MRI did not reveal evidence of acute infarct, however imaging was more concerning PRES vs encephalitis vs cerebritis vs other. Will defer further workup and recommendations to the General Neurology team. Rayshawn Camp MD Vascular Neurologist [facility] documented in this encounter Nursing Notes * [...] organization consistent safety round/check completed Taken 01/29/2025 by Mary Wu RN Safety Promotion/Fall Prevention: [...] utilized rest/sleep promoted Taken 01/28/20251999 by Mary Wu RN Infection Prevention: environmental [...] weight shift assistance provided Head of Bed ([facility]) Positioning: [facility] elevated Pressure Reduction Devices: positioning supports utilized pressure-redistributing mattress utilized specialty bed utilized Skin Protection: incontinence pads utilized silicone border foam - heel silicone border foam - sacrum/coccyx Taken 01/29/2025 0000 by Mary Wu RN Activity Management: activity encouraged Pressure Reduction Techniques: frequent weight shift encouraged weight shift assistance provided Head of Bed ([facility]) Positioning: [facility] elevated Pressure Reduction Devices: positioning supports utilized pressure-redistributing mattress utilized specialty bed utilized Skin Protection: incontinence pads utilized silicone border foam - heel silicone border foam - sacrum/coccyx Taken 01/28/2025 2200 by Mary Wu RN Activity Management: activity encouraged Pressure Reduction Techniques: frequent weight shift encouraged weight shift assistance provided Head of Bed ([facility]) Positioning: [facility] elevated Pressure Reduction Devices: positioning supports utilized pressure-redistributing mattress utilized specialty bed utilized Skin Protection: incontinence pads utilized silicone border foam - heel silicone border foam - sacrum/coccyx Taken 01/28/2025 2000 by Mary Wu RN Activity Management: activity encouraged Pressure Reduction Techniques: frequent weight shift encouraged weight shift assistance provided Head of Bed ([facility]) Positioning: [facility] elevated Pressure Reduction Devices: positioning supports utilized pressure-redistributing mattress utilized specialty bed utilized Skin Protection: incontinence pads utilized silicone border foam - heel silicone border foam - sacrum/coccyx Problem: Restraint, Nonviolent Goal: Absence of Harm or Injury Outcome: Progressing Intervention: Implement Least Restrictive Safety Strategies Recent Flowsheet Documentation Taken 01/29/2025 0400 by Mary Wu RN Social Media Strategist Protection: tubing secured Taken 01/29/2025 0200 by Mary Wu RN Social Media Strategist Protection: tubing secured Taken 01/29/2025 0000 by Mray Wu RN Social Media Strategist Protection: tubing secured Taken 01/28/2025 2200 by Mary Wu RN Social Media Strategist Protection: tubing secured Taken 01/28/20251999 by Mary Wu RN Social Media Strategist Protection: tubing secured Diversional Activities: television Intervention: [...] Enhanced Safety Measures: bed alarm set Taken 01/28/20252199 by Mary Wu RN Enhanced Safety Measures: [...] encouraged BADL personal objects within reach Taken 01/28/20252199 by Mary Wu RN Self-Care Promotion: independence [...] room organization consistent safety round/check completed Taken 01/28/20250 by Mary Wu RN Safety Promotion/Fall Prevention: [...] Goal Outcome Evaluation: * Madiha Mccauley, MS CCC-CANDLE EXTRUSION MACHINE OPERATOR - 01/28/2025 3:51 PM EDT Goal Outcome Evaluation: Plan of Care Reviewed With: patient, spouse Progress: improving Anticipated Discharge Disposition (CANDLE EXTRUSION MACHINE OPERATOR): home with OP services (if deficits persist @ time of d/c) Treatment Assessment (CANDLE EXTRUSION MACHINE OPERATOR): improved, mild, cognitive-linguistic disorder (01/28/25 1500) Treatment Assessment Comments (CANDLE EXTRUSION MACHINE OPERATOR): Mild deficits are acute/atypical for pt per her report. (01/28/25 1500) Plan for Continued Treatment (CANDLE EXTRUSION MACHINE OPERATOR): continue treatment per plan of care, goals adjusted to reflect functional improvements demonstrated (01/28/251499) * Shabana Kim, OT Student - 01/28/2025 [...] 01/28/2025 10:17 AM EDT Associated attestation - Aleta, Florence, OT - 01/28/2025 10:17 AM EDT Florence Ramirez, OTR/L 01/28/25 10:17AM * Raeann Arredondo RN - 01/28/2025 6:25 AM EDT Pt AOx4, on RA, NSR/tachycardic when standing. Stand by assist to bathroom. Described 11/09 back pain, refused scheduled lidocaine patch, given [...] independently Skin Protection: incontinence pads utilized Taken 01/27/2025 225 by Raeann Arredondo RN Body Position: position [...] Management Interventions: pain medication given Taken 01/28/2025 0400 by Raeann Arredondo RN Pain Management Interventions: [...] shift encouraged Head of Bed ([facility]) Positioning: [facility] elevated Pressure Reduction Devices: positioning supports utilized Skin Protection: incontinence pads utilized Problem: Restraint, Nonviolent Goal: Absence of Harm or Injury Outcome: Progressing Intervention: Implement Least Restrictive Safety Strategies Recent Flowsheet Documentation Taken 01/27/20252257 by Raeann Arredondo RN Social Media Strategist Protection: IV pole/bag removed from visual field [...] Safety Measures: bed alarm set Taken 01/28/2025 020 by Raeann Arredondo RN Enhanced Safety Measures: bed alarm set Taken 01/27/20252257 by Raeann Arredondo RN Enhanced Safety Measures: bed alarm set Problem: Fall Injury Risk Goal: Absence of Fall and Fall-Related Injury Outcome: Progressing Intervention: Identify and Manage Contributors Recent Flowsheet Documentation Taken 01/28/2025 06 by Raeann Arredondo RN Medication Review/Management: medications reviewed Taken 01/28/2025 040 by Raeann Arredondo RN Medication Review/Management: medications reviewed Taken 01/28/2025199 by Raeann Arredondo RN Medication Review/Management: medications reviewed Taken 01/27/20252257 by Raeann Arredondo RN Medication Review/Management: medications reviewed Intervention: Promote Injury-Free Environment Recent Flowsheet Documentation Taken 01/28/2025 06 by Raeann Arredondo RN Safety Promotion/Fall Prevention: activity supervised assistive device/personal items within reach clutter free environment maintained fall prevention program maintained nonskid shoes/slippers when out of bed room organization consistent safety round/check completed Taken 01/28/2025 040 by Raeann Arredondo RN Safety Promotion/Fall Prevention: activity supervised assistive device/personal items within reach clutter free environment maintained fall prevention program maintained nonskid shoes/slippers when out of bed room organization consistent safety round/check completed Taken 01/28/2025199 by Raeann Arredondo RN Safety Promotion/Fall Prevention: activity supervised assistive device/personal items within reach clutter free environment maintained fall prevention program maintained nonskid shoes/slippers when out of bed room organization consistent safety round/check completed Taken 01/27/20252257 by Raeann Arredondo RN Safety Promotion/Fall Prevention: activity supervised assistive device/personal items within reach clutter free environment maintained fall prevention program maintained nonskid shoes/slippers when out of bed room organization consistent safety round/check completed Goal Outcome Evaluation: Progress: improving * Nic Martin MS CCC-CANDLE EXTRUSION MACHINE OPERATOR - 01/26/2025 1:04 PM EDT Goal Outcome Evaluation: Plan of Care Reviewed With: patient Progress: improving Anticipated Discharge Disposition (CANDLE EXTRUSION MACHINE OPERATOR): inpatient rehabilitation facility, other (see comments) (no further dysphagia intervention indicated, CANDLE EXTRUSION MACHINE OPERATOR will f/u w cog) CANDLE EXTRUSION MACHINE OPERATOR Diagnosis: moderate-severe, cognitive-linguistic disorder (01/26/25 1030) CANDLE EXTRUSION MACHINE OPERATOR Diagnosis Comments: deficits are low level and are more c/w cognitive- linguistic deficits than language. (01/26/25 1030) CANDLE EXTRUSION MACHINE OPERATOR Swallowing Diagnosis: swallow WFL/no suspected pharyngeal impairment (01/26/25 103) * Shelly Saleem OT - 01/26/2025 11:44 AM EDT Goal [...] pt progress closely. Anticipated Discharge Disposition (OT): fdc facility * Dinora Huston, PT - 01/26/2025 [...] monitor pt's progress. Anticipated Discharge Disposition (PT): fdc facility * West Epps RN - 01/26/2025 [...] CWOCN Wound, Ostomy and Continence (WOC) Department [facility] documented in this encounter Miscellaneous Notes * Case Management/Social Work - Merari Skaggs MSW - 01/29/2025 1:42 PM EDT Case Management Discharge Note Final Note: ELECTRO OPTICS ENGINEER spoke with pt at bedside. Speech therapy [...] Therapy Treatment Note - Madiha Mccauley MS CCC-CANDLE EXTRUSION MACHINE OPERATOR - 01/28/2025 3:52 PM EDT Images from the original note were not included. Acute Care - Speech Language Pathology Treatment Note [facility] Patient Name: Farrah Lopez Demetrio : 1950 Today's Date: 01/28/2025 Admit Date: 01/26/2025 Visit Dx: ICD-10-CM ICD-9-CM 1. Cognitive communication deficit R41.841 799.52 2. 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 Anticipated Discharge Disposition (CANDLE EXTRUSION MACHINE OPERATOR): home with OP services (if deficits persist @ time of d/c) (01/28/251499) Therapy Frequency (CANDLE EXTRUSION MACHINE OPERATOR SLC): 5 days per week (01/28/251499) Predicted Duration Therapy Intervention (Days): 2 weeks (01/28/251499) Daily Summary of Progress (CANDLE EXTRUSION MACHINE OPERATOR): progress toward functional goals as expected (01/28/251499) Treatment Assessment (CANDLE EXTRUSION MACHINE OPERATOR): improved, mild, cognitive-linguistic disorder (01/28/251499) Treatment Assessment Comments (CANDLE EXTRUSION MACHINE OPERATOR): Mild deficits are acute/atypical for pt per her report. (01/28/251499) Plan for Continued Treatment (CANDLE EXTRUSION MACHINE OPERATOR): continue treatment per plan of care, goals adjusted to reflect functional improvements demonstrated (01/28/251499) Progress: improving (01/28/25 1551) CANDLE EXTRUSION MACHINE OPERATOR EVALUATION (Last 72 Hours) CANDLE EXTRUSION MACHINE OPERATOR SLC Evaluation Row Name 01/28/25 1500 01/26/25 [...] Function -- WFL -RS Cognitive Assessment Intervention- CANDLE EXTRUSION MACHINE OPERATOR Cognitive Function (Cognition) mild impairment -AC severe [...] Comment -- oriented to year only -RS CANDLE EXTRUSION MACHINE OPERATOR Evaluation Clinical Impressions CANDLE EXTRUSION MACHINE OPERATOR Diagnosis -- moderate-severe;cognitive-linguistic disorder -RS CANDLE EXTRUSION MACHINE OPERATOR Diagnosis Comments -- deficits are low level and are more c/w cognitive- linguistic deficits than language. -RS Rehab Potential/Prognosis -- good -RS SLC Criteria for Skilled Therapy Interventions Met -- yes -RS CANDLE EXTRUSION MACHINE OPERATOR Treatment Clinical Impressions Treatment Assessment (CANDLE EXTRUSION MACHINE OPERATOR) improved;mild;cognitive-linguistic disorder -AC -- Treatment Assessment Comments (CANDLE EXTRUSION MACHINE OPERATOR) Mild deficits are acute/atypical for pt per her report. -AC -- Daily Summary of Progress (CANDLE EXTRUSION MACHINE OPERATOR) progress toward functional goals as expected -AC -- Plan for Continued Treatment (CANDLE EXTRUSION MACHINE OPERATOR) continue treatment per plan of care;goals adjusted to reflect functional improvements demonstrated -AC -- Care Plan Review evaluation/treatment results reviewed;care plan/treatment goals reviewed;risks/benefits reviewed;current/potential barriers reviewed;patient/other agree to care plan -AC -- Care Plan Review, Other Participant(s) spouse -AC -- Recommendations Therapy Frequency (CANDLE EXTRUSION MACHINE OPERATOR SLC) 5 days per week -AC 5 days per week -RS Predicted Duration Therapy Intervention (Days) 2 weeks -AC 2 weeks -RS Anticipated Discharge Disposition (CANDLE EXTRUSION MACHINE OPERATOR) home with OP services if deficits persist @ time of d/c -ACinpatient rehabilitation facility;other (see comments) no further dysphagia intervention indicated,CANDLE EXTRUSION MACHINE OPERATOR will f/u w cog -RS User Thompson (r) = Recorded By, (t) = Taken By, (c) = Cosigned By Initials Name Effective Dates AC Madiha Mccauley, MS CCC-CANDLE EXTRUSION MACHINE OPERATOR 05/05/22 - RS Moreno Martinh, MS CCC-CANDLE EXTRUSION MACHINE OPERATOR 12/14/22 - EDUCATION The patient has been educated in the following areas: Cognitive Impairment. CANDLE EXTRUSION MACHINE OPERATOR GOALS Row Name 01/28/25 1500 01/26/25 1030 Patient will demonstrate functional cognitive-linguistic skills for return to discharge environment [place] Independently -AC with moderate cues -RS Time frame 2 weeks -AC 2 weeks -RS Progress/Outcomes goal revised this -AC new goal -RS CANDLE EXTRUSION MACHINE OPERATOR Diagnostic Treatment Patient will participate in further assessment in the following areas reading comprehension;graphicexpression -AC reading comprehension;graphic expression -RS Time Frame (Diagnostic) 1 week -AC 1 week -RS Progress/Outcomes (Additional Goal 1, CANDLE EXTRUSION MACHINE OPERATOR) goal met -AC new goal -RS Comment (Diagnostic) See assessment. -AC -- Comprehend Questions Goal 1 (CANDLE EXTRUSION MACHINE OPERATOR) Improve Ability to Comprehend Questions Goal 1 (CANDLE EXTRUSION MACHINE OPERATOR) simple yes/no questions;80%;with moderate cues(50-74%) -AC simple yes/no questions;80%;with moderate cues (50-74%) -RS Time Frame (Comprehend Questions Goal 1, CANDLE EXTRUSION MACHINE OPERATOR) 1 week -AC 1 week -RS Progress (Ability to Comprehend Questions Goal 1, CANDLE EXTRUSION MACHINE OPERATOR) 100%;independently (over 90% accuracy) -AC -- Progress/Outcomes (Comprehend Questions Goal 1, CANDLE EXTRUSION MACHINE OPERATOR) goal met -AC new goal -RS Follow Directions Goal 2 (CANDLE EXTRUSION MACHINE OPERATOR) Improve Ability to Follow Directions Goal 1 (CANDLE EXTRUSION MACHINE OPERATOR) 1 step direction without objects;80%;with moderate cues (50-74%) -AC 1 step direction without objects;80%;with moderate cues (50-74%) -RS Time Frame (Follow Directions Goal 1, CANDLE EXTRUSION MACHINE OPERATOR) 1 week -AC 1 week -RS Progress (Ability to Follow Directions Goal 1, CANDLE EXTRUSION MACHINE OPERATOR) 100%;independently (over 90% accuracy) -AC -- Progress/Outcomes (Follow Directions Goal 1, CANDLE EXTRUSION MACHINE OPERATOR) goal met -AC new goal -RS Orientation Goal 1 (CANDLE EXTRUSION MACHINE OPERATOR) Improve Orientation Through Goal 1 (CANDLE EXTRUSION MACHINE OPERATOR) demonstrating orientation to day;demonstrating orientationto month;demonstrating orientation to year;80%;with moderate cues (50-74%) -AC demonstrating orientation to day;demonstrating orientation to month;demonstrating orientation to year;80%;with moderate cues (50-74%) -RS Time Frame (Orientation Goal 1, CANDLE EXTRUSION MACHINE OPERATOR) 1 week -AC 1 week -RS Progress (Orientation Goal 1, CANDLE EXTRUSION MACHINE OPERATOR) 100%;independently (over 90% accuracy) -AC -- Progress/Outcomes (Orientation Goal 1, CANDLE EXTRUSION MACHINE OPERATOR) goal met -AC new goal -RS Memory Skills Goal 1 (CANDLE EXTRUSION MACHINE OPERATOR) Improve Memory Skills Through Goal 1 (CANDLE EXTRUSION MACHINE OPERATOR) recalling related word lists immediately;listen to a paragraph and answer questions;use memory strategies;90%;independently (over 90% accuracy) -AC -- Time Frame (Memory Skills Goal 1, CANDLE EXTRUSION MACHINE OPERATOR) 1 week -AC -- Progress/Outcomes (Memory Skills Goal 1, CANDLE EXTRUSION MACHINE OPERATOR) new goal -AC -- Organizational Skills Goal 1 (CANDLE EXTRUSION MACHINE OPERATOR) Improve Thought Organization Through Goal 1 (CANDLE EXTRUSION MACHINE OPERATOR) completing mental manipulation task;90%;with minimal cues (75-90%) -AC -- Time Frame (Thought Organization Skills Goal 1, CANDLE EXTRUSION MACHINE OPERATOR) 1 week -AC -- Progress/Outcomes (Thought Organization Skills Goal 1, CANDLE EXTRUSION MACHINE OPERATOR) new goal -AC -- Executive Functional Skills Goal 1 (CANDLE EXTRUSION MACHINE OPERATOR) Improve Executive Function Skills Goal 1 (CANDLE EXTRUSION MACHINE OPERATOR) identify anticipated needs;organization/planning activity;80%;with minimal cues (75-90%) -AC -- Time Frame (Executive Function Skills Goal 1, CANDLE EXTRUSION MACHINE OPERATOR) 1 week -AC -- Progress/Outcomes (Executive Function Skills Goal 1, CANDLE EXTRUSION MACHINE OPERATOR) new goal -AC -- User Thompson (r) = Recorded By, (t) = Taken By, (c) = Cosigned By Initials Name Provider Type AC Madiha Mccauley MS [facility]-CANDLE EXTRUSION MACHINE OPERATOR Speech and Language Pathologist RS Nic Martin MS [facility]-CANDLE EXTRUSION MACHINE OPERATOR Speech and Language Pathologist Time Calculation: Time Calculation- CANDLE EXTRUSION MACHINE OPERATOR Row Name 01/28/25 3871 Time Calculation- CANDLE EXTRUSION MACHINE OPERATOR CANDLE EXTRUSION MACHINE OPERATOR Start Time 1500 -AC CANDLE EXTRUSION MACHINE OPERATOR Received On 01/28/25 - Untimed Charges 63756-TP Treatment/ST Modification Prosth Aug Alter 54 -AC Total Minutes Untimed Charges Total Minutes 54 -AC Total Minutes 54 -AC User Thompson (r) = Recorded By, (t) = Taken By, (c) = Cosigned By Initials Name Provider Type AC Madiha Mccauley, MS CCC-CANDLE EXTRUSION MACHINE OPERATOR Speech and Language Pathologist Therapy Charges for Today Code Description Service Date Service Provider Modifiers Qty [id number] ST TREATMENT SPEECH 4 01/28/2025 MccauleyMadiha harding, MS CCC-CANDLE EXTRUSION MACHINE OPERATOR GN 1 Madiha Flores MS Garrick CCC-CANDLE EXTRUSION MACHINE OPERATOR 01/28/2025 * Case Management/Social Work - Merari Skaggs MSW - 01/28/2025 11:15 AM EDT Continued Stay Note [facility] Patient Name: Farrah Atkinson Today's Date: 01/28/2025 [...] longer recommending SNF and jsut rec home. ELECTRO OPTICS ENGINEER remains available for any discharge needs thatarise. Discharge Codes No documentation. JEAN Shane * Therapy Evaluation - Nic Martin MS CCC-CANDLE EXTRUSION MACHINE OPERATOR - 01/26/2025 1:04 PM EDT Images from the original note were not included. Acute Care - Speech Language Pathology Swallow Initial Evaluation [facility] Clinical Swallow Evaluation + Cognitive-Communication Evaluation Patient Name: Farrah Atkinson : 1950 Today's Date: 01/26/2025 Admit Date: 01/26/2025 Visit Dx: ICD-10-CM ICD-9-CM 1. 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 CANDLE EXTRUSION MACHINE OPERATOR Swallowing Diagnosis: swallow WFL/no suspected pharyngeal impairment (01/26/25 1030) CANDLE EXTRUSION MACHINE OPERATOR Diet Recommendation: regular textures, thin liquids (01/26/25 1030) CANDLE EXTRUSION MACHINE OPERATOR Rec. for Method of Medication Administration: as tolerated (01/26/25 1030) Swallow Criteria for Skilled Therapeutic Interventions Met: no problems identified which require skilled intervention (01/26/25 1030) Anticipated Discharge Disposition (CANDLE EXTRUSION MACHINE OPERATOR): inpatient rehabilitation facility, other (see comments) (no further dysphagia intervention indicated, CANDLE EXTRUSION MACHINE OPERATOR will f/u w cog) (01/26/25 1030) Predicted Duration Therapy Intervention (Days): 2 weeks (01/26/25 1030) Oral Care Recommendations: Oral Care BID/PRN, Toothbrush (01/26/25 1030) Progress: improving SWALLOW EVALUATION (Last 72 Hours) CANDLE EXTRUSION MACHINE OPERATOR Adult Swallow Evaluation Row Name 01/26/25 1030 [...] and recurrent UTIs. She was transferred from OSH 2/2 concerns for SAH after she snorted medications and was found down. -RS Current Method of Nutrition NPO -RS Precautions/Limitations, Vision difficult to assess -RS Precautions/Limitations, Hearing WFL;for purposes of eval -RS Prior Level of Function-Communication unknown -RS Prior Level of Function-Swallowing other (see comments) FEES 08/2022 at [facility] 2/2 cord dysfunction. Soft/ntl/no mixed/single drinks recommended [...] room air -RS Eating/Swallowing Skills fed by CANDLE EXTRUSION MACHINE OPERATOR;other (see comments) pt in bilateral wrist restraints -RS Positioning During Eating upright in bed -RS Utensils Used spoon;cup;straw -RS Consistencies Trialed regular textures;mixed consistency;ice chips;thin liquids;pureed -RS Respiratory Respiratory Status WFL -RS Clinical Swallow Eval Oral Prep Phase WFL -RS Oral Transit WFL -RS Oral Residue WFL -RS Pharyngeal Phase no overt signs/symptoms of pharyngeal impairment -RS Esophageal Phase unremarkable -RS CANDLE EXTRUSION MACHINE OPERATOR Evaluation Clinical Impression CANDLE EXTRUSION MACHINE OPERATOR Swallowing Diagnosis swallow WFL/no suspected pharyngeal impairment -RS Swallow Criteria for Skilled Therapeutic Interventions Met no problems identified which require skilled intervention -RS Recommendations CANDLE EXTRUSION MACHINE OPERATOR Diet Recommendation regular textures;thin liquids -RS Oral Care Recommendations Oral Care BID/PRN;Toothbrush -RS CANDLE EXTRUSION MACHINE OPERATOR Rec. for Method of Medication Administration as tolerated -RS User Thompson (r) = Recorded By, (t) = Taken By, (c) = Cosigned By Initials Name Effective Dates RS Nic Martin MS CCC-CANDLE EXTRUSION MACHINE OPERATOR 12/14/22 - EDUCATION The patient has been educated in the following areas: Dysphagia (Swallowing Impairment). CANDLE EXTRUSION MACHINE OPERATOR GOALS Row Name 01/26/25 1030 Patient will demonstrate functional cognitive-linguistic skills for return to discharge environment [place] with moderate cues -RS Time frame 2 weeks -RS Progress/Outcomes new goal -RS CANDLE EXTRUSION MACHINE OPERATOR Diagnostic Treatment Patient will participate in further assessment in the following areas reading comprehension;graphicexpression -RS Time Frame (Diagnostic) 1 week -RS Progress/Outcomes (Additional Goal 1, CANDLE EXTRUSION MACHINE OPERATOR) new goal -RS Comprehend Questions Goal 1 (CANDLE EXTRUSION MACHINE OPERATOR) Improve Ability to Comprehend Questions Goal 1 (CANDLE EXTRUSION MACHINE OPERATOR) simple yes/no questions;80%;with moderate cues(50-74%) -RS Time Frame (Comprehend Questions Goal 1, CANDLE EXTRUSION MACHINE OPERATOR) 1 week -RS Progress/Outcomes (Comprehend Questions Goal 1, CANDLE EXTRUSION MACHINE OPERATOR) new goal -RS Follow Directions Goal 2 (CANDLE EXTRUSION MACHINE OPERATOR) Improve Ability to Follow Directions Goal 1 (CANDLE EXTRUSION MACHINE OPERATOR) 1 step direction without objects;80%;with moderate cues (50-74%) -RS Time Frame (Follow Directions Goal 1, CANDLE EXTRUSION MACHINE OPERATOR) 1 week -RS Progress/Outcomes (Follow Directions Goal 1, CANDLE EXTRUSION MACHINE OPERATOR) new goal -RS Orientation Goal 1 (CANDLE EXTRUSION MACHINE OPERATOR) Improve Orientation Through Goal 1 (CANDLE EXTRUSION MACHINE OPERATOR) demonstrating orientation to day;demonstrating orientationto month;demonstrating orientation to year;80%;with moderate cues (50-74%) -RS Time Frame (Orientation Goal 1, CANDLE EXTRUSION MACHINE OPERATOR) 1 week -RS Progress/Outcomes (Orientation Goal 1, CANDLE EXTRUSION MACHINE OPERATOR) new goal -RS User Thompson (r) = Recorded By, (t) = Taken By, (c) = Cosigned By Initials Name Provider Type RS Mario, Lucero, MS CCC-CANDLE EXTRUSION MACHINE OPERATOR Speech and Language Pathologist Time Calculation: Time Calculation- CANDLE EXTRUSION MACHINE OPERATOR Row Name 01/26/25 1305 Time Calculation- CANDLE EXTRUSION MACHINE OPERATOR CANDLE EXTRUSION MACHINE OPERATOR Start Time 1030 -RS CANDLE EXTRUSION MACHINE OPERATOR Received On 01/26/25 -RS Untimed Charges 89121-FH Eval Speech and Production w/ Language Minutes 25 -RS 81104-UZ Eval Oral Pharyng Swallow Minutes 40 -RS Total Minutes Untimed Charges Total Minutes 65 -RS Total Minutes 65 -RS User Thompson (r) = Recorded By, (t) = Taken By, (c) = Cosigned By Initials Name Provider Type RS Nic Martin MS CCC-CANDLE EXTRUSION MACHINE OPERATOR Speech and Language Pathologist Therapy Charges for Today Code Description Service Date Service Provider Modifiers Qty [id number] HC ST EVAL ORAL PHARYNG SWALLOW 3 01/26/2025 Nic Martin MS CCC-DOYLE GN [id number] EVAL SPEECH AND PROD W LANG 2 01/26/2025 Nic Martin MS CCC- SLP GN 1 MS CLAUDE Gavin 01/26/2025 and [facility] - Speech Language Pathology Initial Evaluation [facility] Cognitive-Communication Evaluation Patient Name: Farrah Atkinson : 1950 Today's Date: 01/26/2025 Admit Date: 01/26/2025 Visit Dx: ICD-10-CM ICD-9-CM 1. 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 CANDLE EXTRUSION MACHINE OPERATOR Diagnosis: moderate-severe, cognitive-linguistic disorder (01/26/25 103) CANDLE EXTRUSION MACHINE OPERATOR Diagnosis Comments: deficits are low level and are more c/w cognitive- linguistic deficits than language. (01/26/25 103) Swallow Criteria for Skilled Therapeutic Interventions Met: no problems identified which require skilled intervention (01/26/25 103) SLC Criteria for Skilled Therapy Interventions Met: yes (01/26/25 103) Anticipated Discharge Disposition (CANDLE EXTRUSION MACHINE OPERATOR): inpatient rehabilitation facility, other (see comments) (no further dysphagia intervention indicated, CANDLE EXTRUSION MACHINE OPERATOR will f/u w cog) (01/26/25 103) Therapy Frequency (CANDLE EXTRUSION MACHINE OPERATOR SLC): 5 days per week (01/26/25 103) Predicted Duration Therapy Intervention (Days): 2 weeks (01/26/25 103) Oral Care Recommendations: Oral Care BID/PRN, Toothbrush (01/26/25 1030) Progress: improving (01/26/25 1304) CANDLE EXTRUSION MACHINE OPERATOR EVALUATION (Last 72 Hours) CANDLE EXTRUSION MACHINE OPERATOR SLC Evaluation Row Name 01/26/251029 Comprehension Assessment/Intervention [...] Speech Function WFL -RS Cognitive Assessment Intervention- CANDLE EXTRUSION MACHINE OPERATOR Cognitive Function (Cognition) severe impairment -RS Orientation Status (Cognition) person;moderate impairment;severe impairment -RS Cognition, Comment oriented to year only -RS CANDLE EXTRUSION MACHINE OPERATOR Evaluation Clinical Impressions CANDLE EXTRUSION MACHINE OPERATOR Diagnosis moderate-severe;cognitive-linguistic disorder -RS CANDLE EXTRUSION MACHINE OPERATOR Diagnosis Comments deficits are low level and are more c/w cognitive- linguistic deficits than language. -RS Rehab Potential/Prognosis good -RS SLC Criteria for Skilled Therapy Interventions Met yes -RS Recommendations Therapy Frequency (CANDLE EXTRUSION MACHINE OPERATOR SLC) 5 days per week -RS Predicted Duration Therapy Intervention (Days) 2 weeks -RS Anticipated Discharge Disposition (CANDLE EXTRUSION MACHINE OPERATOR) inpatient rehabilitation facility;other (see comments) no further dysphagia intervention indicated, CANDLE EXTRUSION MACHINE OPERATOR will f/u w cog -RS User Thompson (r) = Recorded By, (t) = Taken By, (c) = Cosigned By Initials Name Effective Dates RS Nic Martin MS [facility]-CANDLE EXTRUSION MACHINE OPERATOR 12/14/22 - EDUCATION The patient has been educated in the following areas: Cognitive Impairment. CANDLE EXTRUSION MACHINE OPERATOR GOALS Row Name 01/26/25 1030 Patient will demonstrate functional cognitive-linguistic skills for return to discharge environment [place] with moderate cues -RS Time frame 2 weeks -RS Progress/Outcomes new goal -RS CANDLE EXTRUSION MACHINE OPERATOR Diagnostic Treatment Patient will participate in further assessment in the following areas reading comprehension;graphicexpression -RS Time Frame (Diagnostic) 1 week -RS Progress/Outcomes (Additional Goal 1, CANDLE EXTRUSION MACHINE OPERATOR) new goal -RS Comprehend Questions Goal 1 (CANDLE EXTRUSION MACHINE OPERATOR) Improve Ability to Comprehend Questions Goal 1 (CANDLE EXTRUSION MACHINE OPERATOR) simple yes/no questions;80%;with moderate cues(50-74%) -RS Time Frame (Comprehend Questions Goal 1, CANDLE EXTRUSION MACHINE OPERATOR) 1 week -RS Progress/Outcomes (Comprehend Questions Goal 1, CANDLE EXTRUSION MACHINE OPERATOR) new goal -RS Follow Directions Goal 2 (CANDLE EXTRUSION MACHINE OPERATOR) Improve Ability to Follow Directions Goal 1 (CANDLE EXTRUSION MACHINE OPERATOR) 1 step direction without objects;80%;with moderate cues (50-74%) -RS Time Frame (Follow Directions Goal 1, CANDLE EXTRUSION MACHINE OPERATOR) 1 week -RS Progress/Outcomes (Follow Directions Goal 1, CANDLE EXTRUSION MACHINE OPERATOR) new goal -RS Orientation Goal 1 (CANDLE EXTRUSION MACHINE OPERATOR) Improve Orientation Through Goal 1 (CANDLE EXTRUSION MACHINE OPERATOR) demonstrating orientation to day;demonstrating orientationto month;demonstrating orientation to year;80%;with moderate cues (50-74%) -RS Time Frame (Orientation Goal 1, CANDLE EXTRUSION MACHINE OPERATOR) 1 week -RS Progress/Outcomes (Orientation Goal 1, CANDLE EXTRUSION MACHINE OPERATOR) new goal -RS User Thompson (r) = Recorded By, (t) = Taken By, (c) = Cosigned By Initials Name Provider Type RS Nic Martin MS CCC-CANDLE EXTRUSION MACHINE OPERATOR Speech and Language Pathologist Time Calculation: Time Calculation- CANDLE EXTRUSION MACHINE OPERATOR Row Name 01/26/25 1305 Time Calculation- CANDLE EXTRUSION MACHINE OPERATOR CANDLE EXTRUSION MACHINE OPERATOR Start Time 1030 -RS CANDLE EXTRUSION MACHINE OPERATOR Received On 01/26/25 -RS Untimed Charges 74939-ZH Eval Speech and Production w/ Language Minutes 25 -RS 76519-KS Eval Oral Pharyng Swallow Minutes 40 -RS Total Minutes Untimed Charges Total Minutes 65 -RS Total Minutes 65 -RS User Thompson (r) = Recorded By, (t) = Taken By, (c) = Cosigned By Initials Name Provider Type RS Nic Martin MS CCC-CANDLE EXTRUSION MACHINE OPERATOR Speech and Language Pathologist Therapy Charges for Today Code Description Service Date Service Provider Modifiers Qty [id number] HC ST EVAL ORAL PHARYNG SWALLOW 3 01/26/2025 Nic Martin MS CCC-DOYLE GN [id number] EVAL SPEECH AND PROD W LANG 2 01/26/2025 Nic Martin MS CCC- DOYLE GN 1 MS CLAUDE Gavin 01/26/2025 * Case Management/Social Work - Shea Bonds RN - 01/26/2025 12:36 PM EDT Discharge Planning Assessment Juanita Patient Name: Farrah Atkinson Today's Date: 01/26/2025 Admit Date: 01/26/2025 Plan: Goal is home Discharge Needs Assessment Row Name 01/26/25 1231 Living Environment People in Home spouse Name(s) of People in Home Rosalio Herman Current Living Arrangements home Potentially Unsafe Housing Conditions unable to assess In the past 12 months has the electric, gas, oil, or water company threatened [...] with family Patient/Family Anticipated Services at 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 Confirmed their residence in [facility]; PCP is Connor Gomez; primary insurance is Medicare and secondary is Zi (spouse to bring card to registration). Patient reported to have prescription drug coverage and uses [facility] in [place]. Patient reported to be independent with ADLs and mobility prior to admission; no DME or home health services utilized. Discharge goal is home. Case Management will continue to follow and assist with discharge plan. Continued Care and Services - Admitted Since 01/26/2025 No active coordination exists. Demographic Summary Row Name 01/26/25 1223 General Information Referral Source admission list Reason for Consult discharge planning Preferred Language Ghanaian Contact Information Permission Granted to Share Info With leather case finishersecurity manager Status Row Name 01/26/25 1231 Functional [...] Shea Bonds RN * Therapy Evaluation - Shelly Saleem OT - 01/26/2025 11:44 AM EDT Images from the original note were not included. Patient Name: Farrah Atkinson : 1950 Today's Date: 01/26/2025 Admit Date: 01/26/2025 Visit Dx: ICD-10-CM ICD-9-CM 1. 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 -KF Row Name 01/26/25 1312 Cognition Orientation Status (Cognition) oriented x 3 -KF Row Name 01/26/25 1317 Safety Issues/Impairments Affecting Functional Mobility Safety Issues [...] Saleem OT Occupational Therapist Mobility/ADL's Row Name 01/26/251315 Bed Mobility Bed Mobility supine-sit -KF Supine-Sit [place] (Bed Mobility) standby assist - Assistive Device (Bed Mobility) bed rails;head of bed elevated -KF Comment, (Bed Mobility) Cues for sequence and safety awareness. Pt impulsively moving toward EOB prior to line management being completed. - Row Name 01/26/251315 Transfers Transfers sit-stand transfer;stand-sit transfer -KF Row Name 01/26/251315 Sit-Stand Transfer Sit-Stand [place] (Transfers) minimum assist (75% patient effort);2 person assist;verbal cues - Assistive Device (Sit-Stand Transfers) walker, front-wheeled -KF Comment, (Sit-Stand Transfer) x1 from EOB - Row Name 01/26/251315 Stand-Sit Transfer Stand-Sit [place] (Transfers) minimum assist (75% patient effort);2 person assist;verbal cues - Assistive Device (Stand-Sit Transfers) walker, front-wheeled -KF Row Name 01/26/251315 Functional Mobility Functional Mobility- Ind. Level minimum assist (75% patient effort);2 person assist required;verbalcues required - Functional Mobility- Device walker, front-wheeled -KF Functional Mobility-Distance (Feet) -- <household distance -KF Functional Mobility- Comment Cues to keep RWx close to base of support and increase stride length. Martin x2 provided throughout for safety. Additional mobility limited by pt fatigue. - Patient was able to Ambulate yes - Row Name 01/26/251315 Activities of Daily Living BADL Assessment/Intervention upper body dressing;lower body dressing;feeding - Row Name 01/26/251315 Upper Body Dressing Assessment/Training [place] Level (Upper Body Dressing) don;doff;front opening garment;moderate assist (50% patient effort) - Position (Upper Body Dressing) edge of bed sitting;unsupported sitting - Row Name 01/26/251315 Lower Body Dressing Assessment/Training [place] Level (Lower Body Dressing) don;socks;dependent (less than 25% patient effort) - Position (Lower Body Dressing) edge of bed sitting -KF Row Name 01/26/25 1316 Self-Feeding Assessment/Training [place] Level (Feeding) liquids to mouth;maximum assist (25% patient effort);set up -KF Position (Feeding) supported sitting -KF User Thompson (r) = Recorded By, (t) = Taken By, (c) = Cosigned By Initials Name Provider Type KF Shelly Saleem OT Occupational Therapist Obj/Interventions Row Name 01/26/25 [...] (MMT) Assessment upper extremity strength deficits identified - Row Name 01/26/25 1318 Upper Extremity (Manual [...] (OT) Activity/Assistive Device (Transfer Goal 1, OT) ovi-wn-hvltw/qfeti-qu-jqb;commode -KF [place] Level/Cues Needed (Transfer Goal 1, OT) standby assist -KF Time Frame (Transfer Goal 1, OT) 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 operator goal (LTG);10 days -KF Progress/Outcome (Transfer Goal 1, OT) new goal -KF Row Name 01/26/25 1321 Dressing Goal 1 (OT) Activity/Device (Dressing Goal 1, OT) upper body dressing;lower body dressing -KF [place]/Cues Needed (Dressing Goal 1, OT) standby assist -KF Time Frame (Dressing Goal 1, OT) short term goal (STG);5 days -KF Strategies/Barriers (Dressing Goal 1, OT) ADL AE PRN -KF Progress/Outcome (Dressing Goal 1, OT) new goal -KF Row Name 01/26/25 1321 Grooming Goal 1 (OT) Activity/Device (Grooming Goal 1, OT) hair care;oral care;wash face, hands -KF [place] (Grooming Goal 1, OT) standby assist -KF Time Frame (Grooming Goal 1, OT) penitentiary goal (LTG);10 days -KF Strategies/Barriers (Grooming Goal [...] = Cosigned By Initials Name Provider Type Shelly Lam, MALICK Occupational Therapist Clinical Impression Row Name 01/26/25 131 Pain Assessment Pretreatment Pain Rating 10/10 -KF Posttreatment Pain Rating 10/10 -KF Pain Side/Orientation generalized -KF Pain Management Interventions activity modification encouraged;exercise or physical activity utilized;positioning techniques utilized;nursing notified -KF Response to Pain Interventions no change per patient report -KF Row Name 01/26/25 9798 Plan of Care Review Plan of Care Reviewed With patient -KF Outcome Evaluation OT evaluation completed. The pt presents with decreased safety awareness, generalized weakness, decreased activity tolerance, and balance deficits warranting continued IP OT services. The pt ambulated <household distance using a RWx with Martin x2. Frequent cues provided for safety awareness. Recommend d/c to SNF, but will monitor pt progress closely. - Row Name 01/26/25 1319 Therapy Assessment/Plan (OT) Patient/Family Therapy Goal Statement (OT) Return home -KF Rehab Potential (OT) good -KF Criteria for Skilled Therapeutic Interventions Met (OT) yes;skilled treatment is necessary -KF Therapy Frequency (OT) daily -KF Predicted Duration of Therapy Intervention (OT) 10 days -KF Row Name 01/26/25 1319 Therapy Plan Review/Discharge Plan (OT) Anticipated Discharge Disposition (OT) fdc facility -KF Row Name 01/26/25 1319 Vital [...] 12 -REGI Row Name 01/26/25 1321 Modified Dimitry Scale Pre-Stroke Modified Denver Scale 6 - Unable to determine (UTD) from the medical record documentation - Modified Denver Scale 4 - Moderately severe disability. Unable to walk without assistance, and unable to attend to own bodily needs without assistance. - Row Name 01/26/25 1321 Functional Assessment Outcome Measure Options AM-PAC 6 Clicks Daily Activity (OT);Modified Denver -KF User Thompson (r) = Recorded By, (t) = Taken By, (c) = Cosigned By Initials Name Provider Type Lainey Zaman, RN Registered Nurse Shelly Lam OT Occupational Therapist Minnie Solomon RN Registered Nurse Occupational Therapy Education Title: PT OT CANDLE EXTRUSION MACHINE OPERATOR Therapies (In Progress) Topic: Occupational Therapy (In [...] [facility] 11/08/22 - Shelly Saleem OT Occupational Therapist OT OT Recommendation and Plan [...] Description Service Date Service Provider Modifiers Qty [id number] OT EVAL MOD COMPLEXITY 4 01/26/2025 hSelly Saleem OT GO 1 Shelly Saleem OT [...] total knee replacement, right Chronic pain syndrome snf prescription opiate use Chronic arthritis associated with [...] resulted in removal iof 13 precancerous polyps. 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 -TT Row Name 01/26/25 1328 Cognition Orientation Status (Cognition) oriented x 3;verbal cues/prompts needed for orientation -TT Row Name 01/26/25 1328 Safety Issues/Impairments Affecting Functional Mobility Safety Issues [...] Bed Mobility Bed Mobility supine-sit -TT Supine-Sit [place] (Bed Mobility) standby assist -TT Assistive Device (Bed Mobility) bed rails;head of bed elevated -TT Comment, (Bed Mobility) Cues for improved sequencing and safety awareness. Impulsively attempting to transition to EOb prior to appropriate line management requiring frequent cues. -TT Row Name 01/26/25 1331 Transfers Comment, (Transfers) STS from EOB w/ FWW. -TT Row Name 01/26/25 1331 Sit-Stand Transfer Sit-Stand [place] (Transfers) minimum assist (75% patient effort);2 person assist;verbal cues -TT Assistive Device (Sit-Stand Transfers) walker, front-wheeled -TT Comment, (Sit-Stand Transfer) Cues for UE placement and improved initiation. Physical assistance d/t impaired initiation and unsteadiness. W/ return to sitting, cues for improved AD management and eccentric control. -TT Row Name 01/26/25 1331 Gait/Stairs (Locomotion) [place] Level (Gait) nonverbal cues (demo/gesture);verbal cues;minimum assist [...] PT Physical Therapist Obj/Interventions Row Name 01/26/25 1338 Range of Motion Comprehensive General Range of Motion bilateral lower extremity ROM WFL -TT Row Name 01/26/25 133 Strength Comprehensive (MMT) General Manual Muscle Testing (MMT) Assessment lower extremity strength deficits identified -TT Comment, General Manual Muscle Testing (MMT) Assessment BLE grossly 4/5 observed w/ functional mobility -TT Row Name 01/26/25 3968 Balance Balance Assessment sitting static balance;sitting dynamic [...] task;weight shifting activity -TT Row Name 01/26/25 1332 Sensory Assessment (Somatosensory) Sensory Assessment (Somatosensory) LE sensation intact -TT User Thompson (r) = Recorded By, (t) = Taken By, (c) = Cosigned By Initials Name Provider Type TT Dinora Huston PT Physical Therapist Goals/Plan Row Name 01/26/25 6357 Bed Mobility Goal 1 (PT) Activity/Assistive Device (Bed Mobility Goal 1, PT) sit to supine/supine to sit -TT [place] Level/Cues Needed (Bed Mobility Goal 1, PT) independent -TT Time Frame (Bed Mobility Goal 1, PT) short term goal (STG);4 days -TT Progress/Outcomes (Bed Mobility Goal 1, PT) new goal -TT Row Name 01/26/25 1337 Transfer Goal 1 (PT) Activity/Assistive Device (Transfer Goal 1, PT) nuy-ap-eajob/buurx-hp-eve;fdq-xm-lhihv/eniwy-rp-lzv-TT [place] Level/Cues Needed (Transfer Goal 1, PT) modified independence -TT Time Frame (Transfer Goal 1, PT) 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 operator goal (LTG);10 days -TT Progress/Outcome (Transfer Goal 1, PT) new goal -TT Row Name 01/26/25 9401 Gait Training Goal 1 (PT) Activity/Assistive Device (Gait Training Goal 1, PT) gait (walking locomotion);decrease fall risk;increase endurance/gait distance -TT [place] Level (Gait Training Goal 1, PT) modified independence -TT Distance (Gait Training Goal 1, PT) 250ft -TT Time Frame (Gait Training Goal 1, PT) buttermilk drier operator goal (LTG);10 days -TT Progress/Outcome (Gait Training Goal 1, PT) new goal -TT Row Name 01/26/25 1198 Therapy Assessment/Plan (PT) Planned Therapy Interventions (PT) balance training;bed mobility training;gait training;home exercise program;patient/family education;postural re- education;stair training;strengthening;transfer training -TT User Thompson (r) = Recorded By, (t) = Taken By, (c) = Cosigned By Initials Name Provider Type TT Dinora Huston, PT Physical Therapist Clinical Impression Row Name 01/26/25 1531 Pain Pretreatment Pain Rating 1010 -TT Posttreatment Pain Rating 10/10 -TT Pain Side/Orientation generalized -TT Pain Management Interventions activity modification encouraged;exercise or physical activity utilized;nursing notified;positioning techniques utilized -TT Response to Pain Interventions no change per patient report -TT Row Name 01/26/25 7484 Plan of Care Review Plan of Care [...] closely monitor pt's progress.-TT Row Name 01/26/25 6155 Therapy Assessment/Plan (PT) Patient/Family Therapy Goals Statement [...] Patient Position Sitting -TT Row Name 01/26/25 1215 Positioning and Restraints Pre-Treatment Position in bed [...] -TT Move to Chair/Commode-4 -JW Row Name 01/26/25 0230 How much help from another [...] Row Name 01/26/25 1338 01/26/25 1321 Modified [place] Scale Pre-Stroke Modified Dimitry Scale 6 - Unable to determine (UTD) from the medical record documentation -TT 6 - Unable to determine (UTD) from the medical record documentation -KF Modified Dimitry Scale 4 - Moderately severe disability. Unable to walk without assistance, and unable to attend to own bodily needs without assistance. -TT 4 - Moderately severe disability. Unable towalk without assistance, and unable to attend to own bodily needs without assistance. 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 Point: Body mechanics (In Progress) Learning Progress Summary Patient Acceptance, E, NR by TT at 01/26/20259 Point: Precautions (In Progress) Learning Progress Summary Patient Acceptance, E, NR by TT at 01/26/20259 User Thompson Initials Effective Dates Name Provider Type Discipline TT 08/29/24 - Dinora Huston, PT Physical Therapist PT PT Recommendation and [...] Complexity): moderate complexity PT Charges Row Name 01/26/251338 Time Calculation Start Time 1144 -TT PT Received On 01/26/25 -TT PT Goal Re-Cert Due Date 02/05/25 -TT Untimed Charges PT Eval/Re-eval Minutes 46 -TT Total Minutes Untimed Charges Total Minutes 46 -TT Total Minutes 46 -TT User Thompson (r) = Recorded By, (t) = Taken By, (c) = Cosigned By Initials Name Provider Type TT Dinora Huston, PT Physical Therapist Therapy Charges for Today Code Description Service Date Service Provider Modifiers Qty [id number] HC PT EVAL MOD COMPLEXITY 4 01/26/2025 Dinora Huston, PT GP 1 PT G-Codes Outcome Measure Options: AM-PAC 6 Clicks Basic Mobility (PT), Modified Dimitry AM-PAC 6 Clicks Score (PT): 17 AM-PAC 6 Clicks Score (OT): 14 Modified Dimitry Scale: 4 - Moderately severe disability. Unable to walk without assistance, and unable to attend to own bodily needs without assistance. PT Discharge Summary Anticipated Discharge Disposition (PT): [facility]dc facility Dinora Huston PT 01/26/2025 documented in this encounter Plan [...] * Telemetry Scan (01/29/2025 2:57 AM EDT) [facility] Onbase ECG ORDERABLES Final Result * Potassium (01/28/2025 9:51 PM EDT) [facility] Potassium 3.8 3.5 - 5.2 mmol/L 01/28/2025 10:10 PM EDT [facility] Blood Venipuncture / Unknown 01/28/2025 9:51 PM EDT 01/28/2025 9:57 PM EDT Jessica Valdovinos LAB BLOOD ORDERABLES F inal Result [facility]
[address] [place] [address], * (ABNORMAL) CBC (No Diff) (01/28/2025 10:34 AM EDT) WBC 12.20(H) 3.40 - 10.80 10*3/mm3 01/28/2025 11:45 AM EDT [facility] RBC 3.86 3.77 - 5.28 10*6/mm3 01/28/2025 11:45 AM EDT [facility] Hemoglobin 11.6(L) 12.0 - 15.9 g/dL 01/28/2025 11:45 AM EDT [facility] Hematocrit 35.5 34.0 - 46.6 % 01/28/2025 11:45 AM EDT [facility] MCV 92.0 79.0 - 97.0 fL 01/28/2025 11:45 AM EDT [facility] MCH 30.1 26.6 - 33.0 pg 01/28/2025 11:45 AM EDT [facility] MCHC 32.7 31.5 - 35.7 g/dL 01/28/2025 11:45 AM EDT [facility] RDW 13.5 12.3 - 15.4 % 01/28/2025 11:45 AM EDT [facility] RDW-SD 46.2 37.0 - 54.0 fl 01/28/2025 11:45 AM EDT [facility] MPV 9.6 6.0 - 12.0 fL 01/28/2025 11:45 AM EDT [facility] Platelets 301 140 - 450 10*3/mm3 01/28/2025 11:45 AM EDT [facility] Blood Venipuncture / Unknown 01/28/2025 10:34 AM EDT 01/28/2025 11:41 AM EDT us Andrew Barkley MD LAB BLOOD ORDERABLES Final R esult [facility]
[address] [place] [address], * (ABNORMAL) Basic Metabolic Panel (01/28/2025 10:34 AM EDT) Glucose 117(H) 65 - 99 mg/dL 01/28/2025 12:14 PM EDT [facility] BUN 6.4(L) 8.0 - 23.0 mg/dL 01/28/2025 12:14 PM EDT [facility] Creatinine 0.85 0.57 - 1.00 mg/dL 01/28/2025 12:14 PM EDT [facility] Sodium 139 136 - 145 mmol/L 01/28/2025 12:14 PM EDT [facility] Potassium 3.3(L) 3.5 - 5.2 mmol/L 01/28/2025 12:14 PM EDT [facility] Chloride 103 98 - 107 mmol/L 01/28/2025 12:14 PM EDT [facility] CO2 20.6(L) 22.0 - 29.0 mmol/L 01/28/2025 12:14 PM EDT [facility] Calcium 8.8 8.6 - 10.5 mg/dL 01/28/2025 12:14 PM EDT [facility] BUN/Creatinine Ratio 7.5 7.0 - 25.0 01/28/2025 12:14 PM EDT [facility] Anion Gap 15.4(H) 5.0 - 15.0 mmol/L 01/28/2025 12:14 PM EDT [facility] eGFR 72.4 >60.0 mL/min/1.7 3 01/28/2025 12:14 PM EDT [facility] Blood Venipuncture / Unknown 01/28/2025 10:34 AM EDT 01/28/2025 11:41 AM EDT Narrative [facility] - 01/28/2025 12:14 PM EDT GFR [...] not include race as a factor us Andrew Barkley MD LAB BLOOD ORDERABLES Final R esult Performing Organization Address [facility] Co de Phone Number [facility]
[address] [place] [address], * Telemetry Scan (01/28/2025 8:20 AM EDT) [facility] ECG ORDERABLES Final Result * Potassium (01/27/2025 6:45 PM EDT) [facility] Potassium 3.8 3.5 - 5.2 mmol/L 01/27/2025 7:27 PM EDT [facility] Comment:Specimen hemolyzed. Result may be falsely elevated. Blood Venipuncture / Unknown 01/27/2025 6:45 PM EDT 01/27/2025 7:06 PM EDT us Andrew Barkley MD LAB BLOOD ORDERABLES Final R esult Performing Organization Address City/[facility] Co de Phone Number [facility]
[address] [place] [address], * (ABNORMAL) Basic Metabolic Panel (01/27/2025 4:54 AM EDT) Glucose 92 65 - 99 mg/dL 01/27/2025 5:36 AM EDT [facility] BUN 10.9 8.0 - 23.0 mg/dL 01/27/2025 5:36 AM EDT [facility] Creatinine 0.96 0.57 - 1.00 mg/dL 01/27/2025 5:36 AM EDT [facility] Sodium 141 136 - 145 mmol/L 01/27/2025 5:36 AM T [facility] Potassium 3.2(L) 3.5 - 5.2 mmol/L 01/27/2025 5:36 AM EDT [facility] Chloride 107 98 - 107 mmol/L [facility]/27[facility]2025 5:[facility] CO2 22.6 22.0 - 29.0 mmol/L 01/27/2025 5:36 AM EDT [facility] Calcium 8.6 8.6 - 10.5 mg/dL 01/27/2025 5:36 AM [facility] BUN/Creatinine Ratio 11.4 7.0 - 25.0 01/27/2025 5:36 AM T [facility] Anion Gap 11.4 5.0 - 15.0 mmol/L 01/27/2025 5:36 AM [facility] eGFR 62.6 >60.0 mL/min/1.7 3 01/27/2025 5:36 AM [facility] Blood Venipuncture / Unknown 01/27/2025 4:54 AM EDT 01/27/2025 5:02 AM EDT [facility] - 01/27/2025 5:36 [...] include race as a factor Maru Martinez HOME SERVICE TECHNICIAN LAB BLOOD ORDERABLES Final Result [facility]
[address] [place] [address], * (ABNORMAL) CBC (No Diff) (01/27/2025 4:54 AM EDT) WBC 9.35 3.40 - 10.80 10*3/mm3 01/27/2025 5:32 AM EDT [facility] Comment:Result checked RBC 3.40(L) 3.77 - 5.28 10*6/mm3 01/27/2025 5:32 AM EDT [facility] Hemoglobin 10.2(L) 12.0 - 15.9 g/dL 01/27/2025 5:32 AM EDT [facility] Hematocrit 32.3(L) 34.0 - 46.6 % 01/27/2025 5:32 AM EDT [facility] MCV 95.0 79.0 - 97.0 fL 01/27/2025 5:32 AM EDT [facility] MCH 30.0 26.6 - 33.0 pg 01/27/2025 5:32 AM EDT [facility] MCHC 31.6 31.5 - 35.7 g/dL 01/27/2025 5:32 AM EDT [facility] RDW 13.8 12.3 - 15.4 % 01/27/2025 5:32 AM EDT [facility] RDW-SD 47.9 37.0 - 54.0 fl 01/27/2025 5:32 AM EDT [facility] MPV 9.1 6.0 - 12.0 fL 01/27/2025 5:32 AM EDT [facility] Platelets 226 140 - 450 10*3/mm3 01/27/2025 5:32 AM EDT [facility] Blood Venipuncture / Unknown 01/27/2025 4:54 AM EDT 01/27/2025 5:02 AM EDT Maru Martinez HOME SERVICE TECHNICIAN LAB BLOOD ORDERABLES Final Result [facility]
[address] [place] [address], * MRI Brain With Contrast (01/27/2025 1:28 AM EDT) Anatomical Region Laterality Modality Head, Neck N/A Magnetic Resonan ce 01/27/2025 2:00 AM EDT Impressions 01/27/2025 2:05 AM EDT Impression: No pathologic contrast enhancement. 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 Electronically Signed: Jesus Peterson MD 01/27/2025 2:05 AM EDT Workstation ID: [id number] Narrative 01/27/2025 2:05 AM EDT MRI BRAIN [...] MD 01/27/2025 2:05 AM EDT Workstation ID: [id number] us Adama Maher MD IMG MRI ORDERABLES Final Result * POC Glucose Once (01/26/2025 5:38 PM EDT) Glucose 91 70 - 130 mg/dL 01/26/2025 5:40 PM EDT [facility] Comment:Serial Number: [id number]: [id number] Nova Comment 1 Follow unit protocol 01/26/2025 5:40 PM EDT [facility] Blood 01/26/2025 5:38 PM EDT 01/26/2025 5:40 PM EDT us Andrew Barkley MD POINT OF CARE TEST ORDERABLE S Final Result [facility]
[address] [place] [address], * POC Glucose Once (01/26/2025 12:19 PM EDT) Glucose 98 70 - 130 mg/dL 01/26/2025 12:22 PM EDT [facility] Comment:Serial Number: [id number]: [id number] Nova Comment 1 Follow unit protocol 01/26/2025 12:22 PM EDT [facility] Blood 01/26/2025 12:1 9 PM EDT 01/26/2025 12:22 PM EDT us Anrdew Barkley MD POINT OF CARE TEST ORDERABLE S Final Result [facility]
[address] [place] [address], [place] [phone] * ECHO COMPLETE W/ DOPPLER AND COLOR [...] - 2.0 mmol/L 01/26/2025 11:33 AM EDT [facility] Comment:Falsely depressed re sults may occur on samples drawn from patients receiving N-Acetylcysteine (NAC) or Metamizole. Blood Venipuncture / Unknown 01/26/2025 10:44 AM EDT 01/26/2025 11:00 AM EDT Maru Martinez HOME SERVICE TECHNICIAN LAB BLOOD ORDERABLES Final Result Performing Organization Address City/[facility]/ZIP Co de Phone Number [facility]
[address] [place] [address], * (ABNORMAL) STAT Lactic Acid, Reflex (01/26/2025 6:51 AM EDT) Lactate 2.2(HH) 0.5 - 2.0 mmol/L 01/26/2025 7:24 AM EDT [facility] Comment:Falsely depressed re sults may occur on samples drawn from patients receiving N-Acetylcysteine (NAC) or Metamizole. Blood Structure of right upper limb / Unknown Venipuncture / Unknown 01/26/2025 6:51 AM EDT 01/26/2025 6:59 AM EDT Maru Martinez APRN LAB BLOOD ORDERABLES Final Result Performing Organization Address [facility]/ZIP Co de Phone Number [facility]
[address] [place] [address], * (ABNORMAL) Vancomycin, Random (01/26/2025 6:51 AM EDT) Vancomycin Random 42.10(HH) 5.00 - 40.00 mcg/mL 01/26/2025 7:53 AM EDT [facility] Blood Structure of right upper limb / Unknown Venipuncture / Unknown 01/26/2025 6:51 AM EDT 01/26/2025 7:01 AM EDT Narrative [facility] - 01/26/2025 7:53 AM EDT Therapeutic Ranges for Vancomycin Vancomycin Random 5.0-40.0 mcg/mL Vancomycin Trough 5.0-20.0 mcg/mL Vancomycin Peak 20.0-40.0 mcg/mL Aline CernaD LAB BLOOD ORDERABLES Final R esult Performing Organization Address [facility] Co de Phone Number [facility]
[address] [place] [address], * (ABNORMAL) Hemoglobin A1c (01/26/2025 6:51 AM EDT) Hemoglobin A1C 5.67(H) 4.80 - 5.60 % 01/26/2025 8:56 AM EDT [facility] Blood Structure of right upper limb / Unknown Venipuncture / Unknown 01/26/2025 6:51 AM EDT 01/26/2025 7:01 AM EDT Narrative [facility] - 01/26/2025 8:56 AM EDT Hemoglobin A1C Ranges: Increased Risk for Diabetes 5.7% to 6.4% Diabetes >= 6.5% Diabetic Goal < 7.0% Rayshawn Hercules PA-C LAB BLOOD ORDERABLE S Final Result Performing Organization Address City/[facility]/ZIP Co de Phone Number [facility]
[address] [place] [address], * EEG AWAKE OR ASLEEP PORTABLE (01/26/2025 6:30 AM EDT) Impressions NEUROLOGY - 01/26/2025 8:58 AM EDT Diffuse cerebral dysfunction of at least mild degree, nonspecific but most commonly seen due to toxic/metabolic cause No ongoing seizures are present This report is transcribed using the Pivot dictation system. Narrative NEUROLOGY - 01/26/2025 8:58 [...] focal features or epileptiform activity are seen Rayshawn Hercules PA-C NEUROLOGY ORDERABLE S Final [...] 01/26/2025 6:37 AM EDT Workstation ID: [id number] Veda 01/26/2025 6:37 AM EDT MRI BRAIN WO [...] POC Glucose Once (01/26/2025 5:20 AM EDT) Pathologist [facility] Glucose 134(H) 70 - 130 mg/dL 01/26/2025 5:23 AM EDT [facility] Comment:Serial Number: [id number]: [id number] Blood 01/26/2025 5:20 AM EDT 01/26/2025 5:23 AM EDT Rayshawn Baldwin MD POINT OF CARE TEST ORDERABLE S Final Result [facility]
[address] [place] [address], * (ABNORMAL) High Sensitivity Troponin T 1Hr (01/26/2025 3:28 AM EDT) Pathologist [facility] HS Troponin T 22(H) <14 ng/L 01/26/2025 3:57 AM EDT [facility] Troponin T Numeric Delta -1 ng/L 01/26/2025 3:57 AM EDT [facility] Troponin T % Delta -4 Abnormal if >/= 20% 01/26/2025 3:57 AM EDT [facility] Blood Line / Unknown 01/26/2025 3: 28 AM EDT 01/26/2025 3:37 AM EDT Narrative [facility] - 01/26/2025 3:57 AM EDT High [...] to an underlying chronic condition. Maru Martinez HOME SERVICE TECHNICIAN LAB BLOOD ORDERABLES Final Result [facility]
[address] [place] [address], * ECG 12 Lead QT Measurement (01/26/2025 [...] Referred By: Confirmed By: NEERAJ KHAN MD Maru Martinez APRN ECG ORDERABLES Final Resu lt ECG * (ABNORMAL) Urinalysis, Microscopic Only - Indwelling Urethral Catheter (01/26/2025 2:57 AM EDT) RBC, UA 6-10(A) None Seen, 0-2 /HPF 01/26/2025 3:25 AM EDT [facility] WBC, UA 11-20(A) None Seen, 0-2 /HPF 01/26/2025 3:25 AM EDT [facility] Bacteria, UA None Seen None Seen /HPF 01/26/2025 3:25 AM EDT [facility] Squamous Epithelial Cells, UA 0-2 None Seen, 0-2 /HPF 01/26/2025 3:25 AM EDT [facility] Hyaline Casts, UA None Seen None Seen /LPF 01/26/2025 3:25 AM EDT [facility] Methodology Automated Microscopy 01/26/2025 3:25 AM EDT [facility] Urine (Indwelling Urethral Catheter) Collection / Unknown 01/26/2025 2:57 AM EDT 01/26/2025 3:13 AM EDT Maru Martinez APRN URINE ORDERABLES Final Res ult [facility]
[address] [place] [address], * Fentanyl, Urine - Indwelling Urethral Catheter (01/26/2025 2:57 AM EDT) Fentanyl, Urine Negative Negative 01/26/2025 3:40 AM EDT [facility] Urine (Indwelling Urethral Catheter) Collection / Unknown 01/26/2025 2:57 AM EDT 01/26/2025 3:13 AM EDT [facility] - 01/26/2025 3:40 AM EDT Negative [...] test, particularly when unconfirmed results are used. Maru Martinez HOME SERVICE TECHNICIAN URINE ORDERABLES Final Res ult [facility]
[address] [place] [address], * (ABNORMAL) Urine Drug Screen - Indwelling Urethral Catheter (01/26/2025 2:57 AM EDT) Pathologist [facility] THC, Screen, Urine Negative Negative 2024 3:27 AM EDT [facility] Phencyclidine (PCP), Urine Negative Negative 01/26/2025 3:27 AM EDT [facility] Cocaine Screen, Urine Negative Negative 01/26/2025 3:27 AM EDT [facility] Methamphetamine, Ur Negative Negative 01/26/2025 3:27 AM EDT [facility] Opiate Screen Negative Negative 01/26/2025 3:27 AM EDT [facility] Amphetamine Screen, Urine Negative Negative 01/26/2025 3:27 AM EDT [facility] Benzodiazepine Screen, Urine Negative Negative 01/26/2025 3:27 AM EDT [facility] Tricyclic Antidepressants Screen Positive(A) Negative 01/26/2025 3:27 AM EDT [facility] Methadone Screen, Urine Negative Negative 01/26/2025 3:27 AM EDT [facility] Barbiturates Screen, Urine Negative Negative 01/26/2025 3:27 AM EDT [facility] Oxycodone Screen, Urine Positive(A) Negative 01/26/2025 3:27 AM EDT [facility] Buprenorphine, Screen, Urine Negative Negative 01/26/2025 3:27 AM EDT [facility] Urine (Indwelling Urethral Catheter) Collection / Unknown 01/26/2025 2:57 AM EDT 01/26/2025 3:13 AM EDT [facility] - 01/26/2025 3:27 AM EDT Cutoff [...] unconfirmed results are used. us Maru Martinez HOME SERVICE TECHNICIAN URINE ORDERABLES Final Res ult [facility]
[address] [place] [address], * (ABNORMAL) Urinalysis With Microscopic If Indicated (No Culture) - Indwelling Urethral Catheter (01/26/2025 2:57 AM EDT) Color, UA Yellow Yellow, Straw 01/26/2025 3:25 AM EDT [facility] Appearance, UA Clear Clear 01/26/2025 3:25 AM EDT [facility] pH, UA 5.5 5.0 - 8.0 01/26/2025 3:25 AM EDT [facility] Specific [place], UA >1.030(H) 1.005 - 1.030 01/26/2025 3:25 AM EDT [facility] Glucose, UA Negative Negative 01/26/2025 3:25 AM EDT [facility] Ketones, UA Negative Negative 01/26/2025 3:25 AM EDT [facility] Bilirubin, UA Negative Negative 01/26/2025 3:25 AM EDT [facility] Blood, UA Moderate (2+)(A) Negative 01/26/2025 3:25 AM EDT [facility] Protein, UA Trace(A) Negative 01/26/2025 3:25 AM EDT [facility] Leuk Esterase, UA Small (1+)(A) Negative 01/26/2025 3:25 AM EDT [facility] Nitrite, UA Negative Negative 01/26/2025 3:25 AM EDT [facility] Urobilinogen, UA 0.2 E.U./dL 0.2 - 1.0 E.U./dL 01/26/2025 3:25 AM EDT [facility] Urine (Indwelling Urethral Catheter) Collection / Unknown 01/26/2025 2:57 AM EDT 01/26/2025 3:13 AM EDT us Maru Martinez HOME SERVICE TECHNICIAN URINE ORDERABLES Final Res ult [facility]
[address] [place] [address], * (ABNORMAL) POC Glucose Once (01/26/2025 2:38 AM EDT) Glucose 150(H) 70 - 130 mg/dL 01/26/2025 5:06 AM EDT [facility] Comment:Serial Number: [id number] Blood 01/26/2025 2:38 AM EDT 01/26/2025 5:06 AM EDT Rayshawn Baldwin MD POINT OF CARE TEST ORDERABLE S Final Result Performing Organization Address City/[facility]/ZIP Co de Phone Number [facility]
[address] [place] [address], * LSAC Slide Creation (01/26/2025 2:09 AM EDT) Blood Line / Unknown 01/26/2025 2: 09 AM EDT 01/26/2025 2:20 AM EDT Maru Martinez HOME SERVICE TECHNICIAN LAB BLOOD ORDER ONLY Final Result Performing Organization Address City/[facility]/ZIP Co de Phone Number [facility]
[address] [place] [address], * (ABNORMAL) CBC Auto Differential (01/26/2025 2:09 AM EDT) WBC 18.88(H) 3.40 - 10.80 10*3/mm3 01/26/2025 2:48 AM EDT [facility] RBC 3.98 3.77 - 5.28 10*6/mm3 01/26/2025 2:48 AM EDT [facility] Hemoglobin 11.6(L) 12.0 - 15.9 g/dL 01/26/2025 2:48 AM EDT [facility] Hematocrit 35.6 34.0 - 46.6 % 01/26/2025 2:48 AM EDT [facility] MCV 89.4 79.0 - 97.0 fL 01/26/2025 2:48 AM EDT [facility] MCH 29.1 26.6 - 33.0 pg 01/26/2025 2:48 AM EDT [facility] MCHC 32.6 31.5 - 35.7 g/dL 01/26/2025 2:48 AM EDT [facility] RDW 13.6 12.3 - 15.4 % 01/26/2025 2:48 AM EDT [facility] RDW-SD 45.1 37.0 - 54.0 fl 01/26/2025 2:48 AM EDT [facility] MPV 9.4 6.0 - 12.0 fL 01/26/2025 2:48 AM EDT [facility] Platelets 411 140 - 450 10*3/mm3 01/26/2025 2:48 AM EDT [facility] Blood Line / Unknown 01/26/2025 2: 09 AM EDT 01/26/2025 2:20 AM EDT Maru Martinez HOME SERVICE TECHNICIAN LAB BLOOD ORDERABLES Final Result Performing Organization Address City/State/[facility] Co de Phone Number [facility]
[address] [place] [address], * (ABNORMAL) Manual Differential (01/26/2025 2:09 AM EDT) Neutrophil % 81.0(H) 42.7 - 76.0 % 01/26/2025 2:48 AM EDT [facility] Lymphocyte % 9.0(L) 19.6 - 45.3 % 01/26/2025 2:48 AM EDT [facility] Monocyte % 3.0(L) 5.0 - 12.0 % 01/26/2025 2:48 AM EDT [facility] Eosinophil % 0.0(L) 0.3 - 6.2 % 01/26/2025 2:48 AM EDT [facility] Basophil % 0.0 0.0 - 1.5 % 01/26/2025 2:48 AM EDT [facility] Bands % 5.0 0.0 - 5.0 % 01/26/2025 2:48 AM EDT [facility] Atypical Lymphocyte % 2.0 0.0 - 5.0 % 01/26/2025 2:48 AM EDT [facility] Neutrophils Absolute 16.24(H) 1.70 - 7.00 10*3/mm3 01/26/2025 2:48 AM EDT [facility] Lymphocytes Absolute 2.08 0.70 - 3.10 10*3/mm3 01/26/2025 2:48 AM EDT [facility] Monocytes Absolute 0.57 0.10 - 0.90 10*3/mm3 01/26/2025 2:48 AM EDT [facility] Eosinophils Absolute 0.00 0.00 - 0.40 10*3/mm3 01/26/2025 2:48 AM EDT [facility] Basophils Absolute 0.00 0.00 - 0.20 10*3/mm3 01/26/2025 2:48 AM EDT [facility] RBC Morphology Normal Normal 01/26/2025 2:48 AM EDT [facility] WBC Morphology Normal Normal 01/26/2025 2:48 AM EDT [facility] Platelet Morphology Normal Normal 01/26/2025 2:48 AM EDT [facility] Blood Line / Unknown 01/26/2025 2: 09 AM EDT 01/26/2025 2:20 AM EDT Maru Martinez HOME SERVICE TECHNICIAN LAB BLOOD ORDERABLES Final Result [facility]
[address] [place] [address], * TSH Rfx On Abnormal To Free T4 (01/26/2025 2:09 AM EDT) TSH 1.430 0.270 - 4.200 uIU/mL 01/26/2025 2:50 AM EDT [facility] Blood Line / Unknown 01/26/2025 2: 09 AM EDT 01/26/2025 2:20 AM EDT Maru Martinez APRN LAB BLOOD ORDERABLES Final Result [facility]
[address] [place] [address], * (ABNORMAL) High Sensitivity Troponin T (01/26/2025 2:09 AM EDT) HS Troponin T 23(H) <14 ng/L 01/26/2025 2:50 AM EDT [facility] Blood Line / Unknown 01/26/2025 2: 09 AM EDT 01/26/2025 2:20 AM EDT Narrative [facility] - 01/26/2025 2:50 AM EDT High [...] BLOOD ORDERABLES Final Result Performing Organization Address City/[facility]/ZIP Co de Phone Number [facility]
[address] [place] [address], * Protime-INR (01/26/2025 2:09 AM EDT) Protime 13.9 12.2 - 15.3 Seconds 01/26/2025 2:56 AM EDT [facility] INR 1.01 0.89 - 1.12 01/26/2025 2:56 AM EDT [facility] Blood Line / Unknown 01/26/2025 2: 09 AM EDT 01/26/2025 2:20 AM EDT Maru Martinez HOME SERVICE TECHNICIAN LAB BLOOD ORDERABLES Final Result [facility]
[address] [place] [address], * Procalcitonin (01/26/2025 2:09 AM EDT) Procalcitonin 0.15 0.00 - 0.25 ng/mL 01/26/2025 2:50 AM EDT [facility] Blood Line / Unknown 01/26/2025 2: 09 AM EDT 01/26/2025 2:20 AM EDT Narrative [facility] - 01/26/2025 2:50 AM EDT As [...] Day 4 values are available. Refer to http://www.hpjdxp-zil-ykinwgijij.com Change in PCT <=80% A decrease of [...] diagnosed with severe sepsis or septic shock. Maru Martinez HOME SERVICE TECHNICIAN LAB BLOOD ORDERABLES Final Result [facility]
[address] [place] [address], * Phosphorus (01/26/2025 2:09 AM EDT) Phosphorus 3.6 2.5 - 4.5 mg/dL 01/26/2025 2:50 AM EDT [facility] Blood Line / Unknown 01/26/2025 2: 09 AM EDT 01/26/2025 2:20 AM EDT Maru Martinez HOME SERVICE TECHNICIAN LAB BLOOD ORDERABLES Final Result [facility]
[address] [place] [address], * Magnesium (01/26/2025 2:09 AM EDT) Magnesium 2.1 1.6 - 2.4 mg/dL 01/26/2025 2:50 AM EDT [facility] Blood Line / Unknown 01/26/2025 2: 09 AM EDT 01/26/2025 2:20 AM EDT Maru Martinez HOME SERVICE TECHNICIAN LAB BLOOD ORDERABLES Final Result [facility]
[address] [place] [address], * (ABNORMAL) Lipid Panel (01/26/2025 2:09 AM EDT) Total Cholesterol 209(H) 0 - 200 mg/dL 01/26/2025 2:50 AM EDT [facility] Triglycerides 149 0 - 150 mg/dL 01/26/2025 2:50 AM EDT [facility] HDL Cholesterol 70(H) 40 - 60 mg/dL 01/26/2025 2:50 AM EDT [facility] LDL Cholesterol 113(H) 0 - 100 mg/dL 01/26/2025 2:50 AM EDT [facility] VLDL Cholesterol 26 5 - 40 mg/dL 01/26/2025 2:50 AM EDT [facility] LDL/HDL Ratio 1.56 01/26/2025 2:50 AM EDT [facility] Blood Line / Unknown 01/26/2025 2: 09 AM EDT 01/26/2025 2:20 AM EDT Narrative [facility] - 01/26/2025 2:50 AM EDT Cholesterol [...] using the NIH LDL-C calculation. Maru Martinez APRN LAB BLOOD ORDERABLES Final Result [facility]
[address] [place] [address], * Lipase (01/26/2025 2:09 AM EDT) Lipase 20 13 - 60 U/L 01/26/2025 2:50 AM EDT [facility] Blood Line / Unknown 01/26/2025 2: 09 AM EDT 01/26/2025 2:20 AM EDT Maru Martinez HOME SERVICE TECHNICIAN LAB BLOOD ORDERABLES Final Result Performing Organization Address [facility] de Phone Number [facility]
[address] [place] [address], * (ABNORMAL) Lactic Acid, Plasma (01/26/2025 2:09 AM EDT) Pathologist [facility] Lactate 2.7(HH) 0.5 - 2.0 mmol/L 01/26/2025 2:45 AM EDT [facility] Comment:Falsely depressed re sults may occur on samples drawn from patients receiving N-Acetylcysteine (NAC) or Metamizole. Blood Line / Unknown 01/26/2025 2: 09 AM EDT 01/26/2025 2:20 AM EDT Maru Martinez HOME SERVICE TECHNICIAN LAB BLOOD ORDERABLES Final Result Performing Organization Address [facility] de Phone Number [facility]
[address] [place] [address], * (ABNORMAL) Comprehensive Metabolic Panel (01/26/2025 2:09 AM EDT) Glucose 154(H) 65 - 99 mg/dL 01/26/2025 2:50 AM EDT [facility] BUN 20.1 8.0 - 23.0 mg/dL 01/26/2025 2:50 AM EDT [facility] Creatinine 1.30(H) 0.57 - 1.00 mg/dL 01/26/2025 2:50 AM EDT [facility] Sodium 142 136 - 145 mmol/L 01/26/2025 2:50 AM EDT [facility] Potassium 3.9 3.5 - 5.2 mmol/L 01/26/2025 2:50 AM EDT [facility] Chloride 107 98 - 107 mmol/L 01/26/2025 2:[facility] CO2 21.1(L) 22.0 - 29.0 mmol/L 01/26/2025 2:50 AM EDT [facility] Calcium 9.0 8.6 - 10.5 mg/dL 01/26/2025 2:50 AM EDT [facility] Total Protein 6.9 6.0 - 8.5 g/dL 01/26/2025 2:50 AM EDT [facility] Albumin 4.0 3.5 - 5.2 g/dL 01/26/2025 2:50 AM EDT [facility] ALT (SGPT) 19 1 - 33 U/L 01/26/2025 2:50 AM EDT [facility] AST (SGOT) 30 1 - 32 U/L 01/26/2025 2:50 AM EDT [facility] Alkaline Phosphatase 120(H) 39 - 117 U/L 01/26/2025 2:50 AM EDT [facility] Total Bilirubin 0.4 0.0 - 1.2 mg/dL 01/26/2025 2:50 AM T [facility] Globulin 2.9 gm/dL 01/26/2025 2:50 AM T [facility] Comment:Calculated Result A/G Ratio 1.4 g/dL 01/26/2025 2:50 AM T [facility] BUN/Creatinine Ratio 15.5 7.0 - 25.0 01/26/2025 2:50 AM T [facility] Anion Gap 13.9 5.0 - 15.0 mmol/L 01/26/2025 2:50 AM T [facility] eGFR 43.5(L) >60.0 mL/min/1.7 3 01/26/2025 2:50 AM T [facility] Blood Line / Unknown 01/26/2025 2: 09 AM EDT 01/26/2025 2:20 AM EDT [facility] - 01/26/2025 2:50 [...] include race as a factor Maru Martinez APRN LAB BLOOD ORDERABLES Final Result Performing Organization Address City/[facility]/ZIP Co de Phone Number [facility]
[address] [place] [address], * (ABNORMAL) CK (01/26/2025 2:09 AM EDT) Creatine Kinase 206(H) 20 - 180 U/L 01/26/2025 2:50 AM EDT [facility] Blood Line / Unknown 01/26/2025 2: 09 AM EDT 01/26/2025 2:20 AM EDT Maru Martinez APRN LAB BLOOD ORDERABLES Final Result Performing Organization Address [facility] Co de Phone Number [facility]
[address] [place] [address], * aPTT (01/26/2025 2:09 AM EDT) PTT 26.2 22.0 - 39.0 seconds 01/26/2025 2:56 AM EDT [facility] Blood Line / Unknown 01/26/2025 2: 09 AM EDT 01/26/2025 2:20 AM EDT Narrative [facility] - 01/26/2025 2:56 AM EDT PTT = The equivalent PTT values for the therapeutic range of heparin levels at 0.3 to 0.5 U/ml are 60 to 70 seconds. Maru Martinez APRN LAB BLOOD ORDERABLES Final Result Performing Organization Address City/[facility]/ZIP Co de Phone Number [facility]
[address] [place] [address], * Calcium, Ionized (01/26/2025 2:09 AM EDT) Ionized Calcium 1.15 1.15 - 1.30 mmol/L 01/26/2025 2:22 AM EDT [facility] Blood Line / Unknown 01/26/2025 2: 09 AM EDT 01/26/2025 2:20 AM EDT Maru Martinez APRN LAB BLOOD ORDERABLES Final Result Performing Organization Address [facility] Co de Phone Number [facility]
[address] [place] [address], * Blood Culture - Blood, Blood, Port (01/26/2025 2:00 AM EDT) Blood Culture No growth at 5 days 02/04/2025 12:48 PM EST [facility] Blood (Blood, Port) Port / Unknown 01/26/2025 2:00 AM EDT 01/26/2025 3:10 AM EDT Maru Martinez APRN MICROBIOLOGY - GENERAL ORD ERABLES Edited Result - Final Performing Organization Address City/[facility]/ZIP Co de Phone Number [facility]
[address] [place] [address], [place] [phone] * Blood Culture - Blood, Arm, Right (01/26/2025 2:00 AM EDT) Blood Culture No growth at 5 days 02/04/2025 12:48 PM EST [facility] Blood Structure of right upper limb / Unknown Venipuncture / Unknown 01/26/2025 2:00 AM EDT 01/26/2025 3:09 AM EDT Maru Sarabjit Martinez HOME SERVICE TECHNICIAN MICROBIOLOGY - GENERAL ORD ERABLES Edited Result - Final [facility]
[address] [place] [address], * CT Angiogram Head w AI Analysis [...] MD 01/26/2025 1:54 AM EDT Workstation ID: [id number] Narrative 01/26/2025 1:[address] ANGIOGRAM [...] MD 01/26/2025 1:54 AM EDT Workstation ID: [id number] Maru Martinez APRN IMG CT ORDERABLES Final [...] MD 01/26/2025 1:54 AM EDT Workstation ID: [id number] Narrative 01/26/2025 1:[address] ANGIOGRAM [...] MD 01/26/2025 1:54 AM EDT Workstation ID: [id number] us Maru Martinez HOME SERVICE TECHNICIAN IMG CT ORDERABLES Final Re sult * CT Head Without Contrast (01/26/2025 1:31 AM EDT) Anatomical Region Laterality Modality Head N/A Computed Tomogra phy 01/26/2025 1:45 AM EDT Impressions 01/26/2025 1:46 AM EDT Impression: No acute intracranial abnormality. Electronically Signed: Jesus Peterson MD 01/26/2025 1:46 AM EDT Workstation ID: [id number] Narrative 01/26/2025 1:[address] HEAD [...] MD 01/26/2025 1:46 AM EDT Workstation ID: [id number] us Mrau Martinez HOME SERVICE TECHNICIAN IMG CT ORDERABLES Final Re sult * LABS SCANNED (01/26/2025) Result [facility] LAB BLOOD ORDERABLES Final Re sult * IMAGING SCANNED (01/26/2025) Anatomical Region Laterality Modality Radiographic Tammy ging Result [facility] IMG DIAGNOSTIC IMAGING ORDERA BLES Final Result * IMAGING SCANNED (01/26/2025) Anatomical Region Laterality Modality Radiographic Tammy ging Result [facility] IMG DIAGNOSTIC IMAGING ORDERA BLES Final Result * IMAGING SCANNED (01/26/2025) Anatomical Region Laterality Modality Radiographic Tammy ging Result [facility] IMG DIAGNOSTIC IMAGING ORDERA BLES Final Result * IMAGING SCANNED (01/26/2025) Anatomical Region Laterality Modality Radiographic Tammy ging Result [facility] IMG DIAGNOSTIC IMAGING ORDERA BLES Final Result * IMAGING SCANNED (01/26/2025) Anatomical Region Laterality Modality Radiographic Tammy ging Result [facility] IMG DIAGNOSTIC IMAGING ORDERA BLES Final Result * IMAGING SCANNED (01/26/2025) Anatomical Region Laterality Modality Radiographic Tammy ging Result [facility] IMG DIAGNOSTIC IMAGING ORDERA BLES Final Result * IMAGING SCANNED (01/26/2025) Anatomical Region Laterality Modality Radiographic Tammy ging Result [facility] IMG DIAGNOSTIC IMAGING ORDERA BLES Final [...] BPA Driven Protocol Open Order & Select [facility] Electrolyte Replacement Protocol Algorithm to View [...] InfectionIndications:Central Nervous System Infection New Bag 01/26/2025 2:33 AM EDT 1,000 mg 200 [...] tablet 25 mcg 25 mcg, Oral, Every Card Feeder, First dose (after last modification) on Sun01/27/25 [...] with warm soapy water or use hand human resources clerk. 3. Open the tube of mupirocin 2%. [...] BPA Driven Protocol Open Order & Select [facility] Electrolyte Replacement Protocol Algorithm to View [...] Prophylaxis 1107 (Given - Provider: Lainey Zaman RN)2017 (Given - Provider: Mar Soriano, RN) 902 (Given - Provider: Rossy Singh RN)2112 (Given - Provider: Mary Wu, RN) 0832 (Given - Provider: Mary Valdez, RN Customer Support Consultant) amitriptyline (ELAVIL) tablet 50 mg 50 mg, Oral, Nightly, First dose (after last modification) on Sun01/26/25 at 2100 2017 (Given - Provider: Mar Soriano RN) 2113 (Given - Provider: Mary Wu RN) amLODIPine (NORVASC) tablet 10 mg 10 mg, Oral, Every 24 Hours Scheduled, First dose (after last modification) on Sun01/28/25 at 0900, Hold for SBP less than 100, DBP less than 60. Caution: Look alike/sound alike drug alert. Avoid grapefruit juice. 09 (Given - Provider: Rossy Singh RN) 0833 (Given - Provider: Mary Valdez RN Customer Support Consultant) amLODIPine (NORVASC) tablet 5 mg (CANCELED) 5 mg, Oral, Every 24 Hours Scheduled, First dose on Sun01/27/25 at 1045, Hold for SBP less than 100, DBP less than 60. Caution: Look alike/sound alike drug alert. Avoid grapefruit juice. 1107 (Given - Provider: Lainey Zaman RN) amLODIPine [...] grapefruit juice. 0837 (Given - Provider: Lainey Wease, RN) 0903 (Given - Provider: Rossy Singh RN) 0832 (Given - Provider: Mary Valdez RN Customer Support Consultant) cefTRIAXone (ROCEPHIN) 2,000 mg in sodium chloride [...] 0832 (Given - Provider: Mary Valdez RN Customer Support Consultant) DULoxetine (CYMBALTA) DR capsule 120 mg 120 [...] juice. Do not crush or chew capsule. 08 (Given - Provider: Lainey Zaman RN) 0904 (Given - Provider: Rossy Singh RN) 0832 (Given - Provider: Mary Valdez RN Customer Support Consultant) enoxaparin sodium (LOVENOX) syringe 40 mg 40 mg, Subcutaneous, Daily, First dose on Sun01/27/25 at 1900, Give subcutaneous in abdomen only. Do not massage site after injection., Indications: VTE Prophylaxis 2017 (Given - Provider: Mar Soriano, RN) 09 (Given - Provider: Rossy Singh RN) 0831 (Given - Provider: Mary Valdez, RN Customer Support Consultant) Gadopiclenol (VUEWAY) injection 7.5 mL (COMPLETED) 7.5 [...] tube. Caution: Look alike/sound alike drug alert. 2017 (Given - Provider: Mar Soriano, RN) 09 (Given - Provider: Rossy Singh RN)2113 (Given - Provider: Mary Wu, SPENCER) 0832 (Given - Provider: Mary Valdez, RN Customer Support Consultant) levothyroxine (SYNTHROID, LEVOTHROID) tablet 25 mcg 25 mcg, Oral, Every Card Feeder, First dose (after last modification) on Sun01/27/25 [...] (Not Given - Provider: Mary Valdez RN Customer Support Consultant - Reason: Patient not available) losartan (COZAAR) [...] Hours, First dose (after last modification) on Sun01/29/25 at 0815, Hold for SBP less than 100, DBP less than 60. 0832 (Given - Provider: Mary Valdez RN Customer Support Consultant) mupirocin (BACTROBAN) 2 % nasal ointment 1 [...] with warm soapy water or use hand human resources clerk. 3. Open the tube of mupirocin 2%. [...] together and massage gently for 60 seconds. ([facility]) 0837 (Given - Provider: Lainey Zaman RN)2017 (Given - Provider: Mar Soriano RN) 903 (Given - Provider: Rossy Singh RN)2114 (Given - Provider: Mary Wu, SPENCER) 0832 (Given - Provider: Mary Valdez RN Customer Support Consultant) potassium chloride (KLOR-CON M20) CR tablet 40 [...] (Canceled Entry - Provider: Mar Soriano RN) 09 (Given - Provider: Rossy Singh RN)2115 (Given - Provider: Mary Wu, SPENCER) 0835 (Given - Provider: Mary Valdez RN Customer Support Consultant) sodium chloride 0.9 % flush 10 mL 10 mL, Intravenous, Every 12 Hours Scheduled, First dose on Sun01/26/25 at 0245 0854 (Not Given - Provider: Lainey Zaman RN - Reason: Given from running infusion)2018 (Canceled Entry - Provider: Mar Soriano, RN) 09 (Given - Provider: Rossy Singh, RN)2115 (Given - Provider: Mary Wu, RN) 0836 (Given - Provider: Elena Torre, RN) sodium chloride 0.9 % flush 10 mL 10 mL, Intravenous, Every 12 Hours Scheduled, First dose on Sun01/26/25 at 1230, Lumen #1 0845 (Given - Provider: Lainey Zaman, SPENCER)2018 (Given - Provider: Mar Soriano, RN) 917 (Given - Provider: Rossy Singh, SPENCER)2114 (Given - Provider: Mary Wu, SPENCER) 0836 (Given - Provider: Elena Torre, RN) sodium chloride 0.9 % flush 10 mL 10 mL, Intravenous, Every 12 Hours Scheduled, First dose on Sun01/26/25 at 1230, Lumen #2 0845 (Given - Provider: Lainey Zaman, SPENCER)2018 (Given - Provider: Mar Soriano, SPENCER) 0950 (Given - Provider: Rossy Singh, RN)2114 (Given - Provider: Mary Wu, SPENCER) 0836 (Given - Provider: Elena Torre, SPENCER) sodium chloride 0.9 % flush 10 mL 10 mL, Intravenous, Every 12 Hours Scheduled, First dose on Sun01/26/25 at 1230, Lumen #3 0845 (Given - Provider: Lainey Zaman, SPENCER)2018 (Given - Provider: Mar Soriano, SPENCER) 0950 (Given - Provider: Rossy Singh, SPENCER)2114 (Given - Provider: Mary Wu, RN) 0837 (Given - Provider: Elena Torre, RN) [...] Sedation 0045 (Rate/Dose Change - Provider: Minnie Castillo, RN)0115 (Rate/Dose Change - Provider: Minnie Castillo, RN)0130 (Rate/Dose Change - Provider: Minnie Castillo, RN)0228 (Rate/Dose Change - Provider: Minnie Castillo, RN)0358 (New Bag - Provider: Minnie Castillo, RN)0444 (Rate/Dose Change - Provider: Minnie Castillo, RN)0550 (Rate/Dose Change - Provider: Minnie Castillo, RN)0615 (Stopped - Provider: Minnie Castillo, RN) PRN Medication Order 01/27/2025 01/28/2025 01/29/2025 [...] 2 minutes. 1502 (Given - Provider: Lainey Zaman RN)2152 (Given - Provider: Shabana Abdul RN) Magnesium Standard Dose Replacement - Follow Nurse / BPA Driven Protocol Open Order & Select [facility] Electrolyte Replacement Protocol Algorithm to View [...] CPOT 5-8 0837 (Given - Provider: Lainey Zaman RN)2050 (Given - Provider: Mar Soriano RN) 0500 (Given - Provider: Raeann Arredondo RN)1302 (Given - Provider: Rossy Singh, SPENCER)2113 (Given - Provider: Mary Wu, SPENCER) 0533 (Given - Provider: Mary Wu RN)1334 (Given - Provider: Mary Valdez RN Customer Support Consultant) Phosphorus Replacement - Follow Nurse / BPA Driven Protocol Open Order & Select [facility] Electrolyte Replacement Protocol Algorithm to View [...] BPA Driven Protocol Open Order & Select [facility] Electrolyte Replacement Protocol Algorithm to View [...] 0835 (Given - Provider: Mary Valdez RN Customer Support Consultant) sodium chloride 0.9 % flush 10 mL [...] if polyethylene glycol is ineffective, Starting on 01/26/25 at 0113, [...] documented as of this encounter Care Teams Health Information Technician Relationship Specialty Start Date End Date Connor Gomez MD [address] [place] [address] PCP - General Family Medicine 01/26/25 documented as of this encounter
[2025-02-19 23:35] VITALS: BP 105/79; PULSE 64; RESP 18; TEMP 36.6; O2SAT 98; BMI 29.2
--- OUTSIDE RECORDS SUMMARY | 2025-02-19 23:38 | XMS_ITS | Encounter Summary ---
Author Organization [facility] Address [address] [place] [address] Care Team Providers Care Maintenance Assistant Name Role Phone Timothy Granda Primary Care Provider [phone] Encounter Details Date Type Department Care Team (Late st Contact Info) Description 01/07/2025 Orders Only [facility] [address] [place] [id number] Shantal Solorio TIP (acute kidney injury) (Primary [...] drink first t mini in the morning ([employer]) to steady your nerves or to get rid of a hangover? 0 11/15/2023 CAGE Questionnaire Score 0 024 Utilities Answer Date Recorded In the past 12 months has th e Zip[employer], gas, oil, or water company threatened to [...] Description 07/20/2025 10:40 AM EDT Office Visit [facility] [address], [address] [place] [address] Gutierrez Domínguez MD [address] [place] [address] Scheduled Orders Name Type Priority Associated Diagnoses Orde r Schedule Renal Function Panel, Plasma Lab Routine TIP (acute kidney injury) ([facility]) Expected: 01/07/2025 (Approximate), Expires: 07/08/2026 CBC and Differential Lab Routine TIP (acute kidney injury) ([facility]) Expected: 01/07/2025 (Approximate), Expires: 07/08/2026 Creatinine, Random, Urine Lab Routine TIP (acute kidney injury) ([facility]) Expected: 01/07/2025 (Approximate), Expires: 07/08/2026 Protein, Random, Urine with Creatinine Lab Routine TIP (acute kidney injury) ([facility]) Expected: 01/07/2025 (Approximate), Expires: 07/08/2026 Urinalysis with reflex microscopic (Culture NOT Included) Lab Routine TIP (acute kidney injury) ([facility]) Expected: 01/07/2025 (Approximate), Expires: 07/08/2026 PTH Intact Total Lab Routine TIP (acute kidney injury) ([facility]) Vitamin D insufficiency Expected: 01/07/2025 (Approximate), Expires: 07/08/2026 Vitamin D 25 Hydroxy Lab Routine TIP (acute kidney injury) ([facility]) Vitamin D insufficiency Expected: 01/07/2025 [...] documented as of this encounter Care Teams Maintenance Assistant Relationship Specialty Start Date End Date Timothy Granda DO [address] [place] [address] PCP - General 05/25/23 documented as of this encounter
--- OUTSIDE RECORDS SUMMARY | 2025-02-19 23:38 | XMS_ITS ---
Care Plan - [facility], [facility] Created on: February 19, 2025 Demetrio Farrah J : 1950 Sex: Female Author Organization [facility] Address [address] [place] [address] Phone Care Team Providers Care Exhibitor Sales Name Role Phone Tosin VARGAS, Chandra Flores Unavailable [phone] Chel VARGAS, Davidson Unavailable [phone] Timothy Granda Primary Care Provider Unavailabl e
--- NOTE | 2025-02-19 23:39 | CT_ITS ---
PROCEDURE INFORMATION: Exam: CTA Head With Contrast, Arteriography Exam date and time: 02/20/2025 12:55 AM Age: 74 years old Clinical indication: Stroke-like symptoms; Other: Confusion; Additional info: Hypotension transient confusion HX pres TECHNIQUE: Imaging protocol: Computed tomographic angiography of the head with contrast. Exam focused on the arteries. 3D rendering (Not supervised by radiologist): MIP and/or 3D reconstructed images were created by the technologist. Radiation optimization: All CT scans at this facility use at least one of these dose optimization techniques: automated exposure control; mA and/or kV adjustment per patient size (includes targeted exams where dose is matched to clinical indication); or iterative reconstruction. Contrast material: ISOVUE; Contrast volume: 80 ml; Contrast route: INTRAVENOUS (IV); COMPARISON: CT HEAD/BRAIN WO CON 02/20/2025 12:53 AM FINDINGS: ANTERIOR CIRCULATION: Right internal carotid artery: Intracranial segment is patent with no significant stenosis or occlusion. No aneurysm. Right middle cerebral artery: No occlusion or significant stenosis. No aneurysm. Right anterior cerebral artery: No occlusion or significant stenosis. No aneurysm. Left internal carotid artery: Intracranial segment is patent with no significant stenosis. No aneurysm. Left middle cerebral artery: No occlusion or significant stenosis. No aneurysm. Left anterior cerebral artery: No occlusion or significant stenosis. No aneurysm. POSTERIOR CIRCULATION: Right vertebral artery: No occlusion or significant stenosis. No aneurysm. Left vertebral artery: No occlusion or significant stenosis. No aneurysm. Basilar artery: No occlusion or significant stenosis. No aneurysm. Right posterior cerebral artery: No occlusion or significant stenosis. No aneurysm. Left posterior cerebral artery: No occlusion or significant stenosis. No aneurysm. Veins: There is no venous thrombosis. Brain: Normal. No hemorrhage. Unremarkable white matter. No mass effect. Cerebral ventricles: Normal. No ventriculomegaly. Bones/joints: Unremarkable. No acute fracture. Soft tissues: Unremarkable. IMPRESSION: No evidence for a embolism, significant stenosis, dissection, aneurysm, or venous thrombosis.
--- NOTE | 2025-02-19 23:39 | CT_ITS ---
PROCEDURE INFORMATION: Exam: CTA Neck With Contrast Exam date and time: 02/20/2025 12:55 AM Age: 74 years old Clinical indication: Stroke-like symptoms; Other: Confusion; Additional info: Hypotension transient confusion HX pres TECHNIQUE: Imaging protocol: Computed tomographic angiography of the neck with contrast. Exam focused on the cervical segments of the vasculature. 3D rendering (Not supervised by radiologist): MIP and/or 3D reconstructed images were created by the technologist. Radiation optimization: All CT scans at this facility use at least one of these dose optimization techniques: automated exposure control; mA and/or kV adjustment per patient size (includes targeted exams where dose is matched to clinical indication); or iterative reconstruction. Contrast material: ISOVUE; Contrast volume: 80 ml; Contrast route: INTRAVENOUS (IV); COMPARISON: CT CERVICAL SPINE WO CON 01/25/2025 3:07 PM FINDINGS: Right common carotid artery: No stenosis. No dissection or occlusion. Right internal carotid artery: No significant stenosis. No dissection or occlusion. Right external carotid artery: No occlusion or stenosis of the origin. Left common carotid artery: No stenosis. No dissection or occlusion. Left internal carotid artery: No significant stenosis. No dissection or occlusion. Left external carotid artery: No occlusion or stenosis of the origin. Right vertebral artery: No stenosis. No dissection or occlusion. Left vertebral artery: No stenosis. No dissection or occlusion. Soft tissues: Normal. No significant soft tissue swelling. Bones/joints: No acute fracture. IMPRESSION: Unremarkable examination with no significant stenosis, dissection, or occlusion. REFERENCES: NASCET CRITERIA. The degree of stenosis in the cervical segment of the internal carotid artery is based on NASCET criteria. Normal is no stenosis. Mild is less than 50% stenosis. Moderate is 50-69% stenosis. Severe is 70% to 99% stenosis. Total occlusion is no detectable patent lumen.
--- NOTE | 2025-02-19 23:39 | CT_ITS ---
PROCEDURE INFORMATION: Exam: CTA Chest With Contrast Exam date and time: 02/20/2025 12:58 AM Age: 74 years old Clinical indication: Other: Hypotension recurrent TECHNIQUE: Imaging protocol: Computed tomographic angiography of the chest with contrast. Exam focused on the arteries. 3D rendering (Not supervised by radiologist): MIP and/or 3D reconstructed images were created by the technologist. Radiation optimization: All CT scans at this facility use at least one of these dose optimization techniques: automated exposure control; mA and/or kV adjustment per patient size (includes targeted exams where dose is matched to clinical indication); or iterative reconstruction. Contrast material: ISOVUE; Contrast volume: 70 ml; Contrast route: INTRAVENOUS (IV); COMPARISON: CT ANGIO CHEST 01/25/2025 3:17 PM FINDINGS: Pulmonary arteries: There is no evidence of filling defects within the pulmonary arterial circulation to suggest pulmonary embolism. Aorta: There is no evidence of an aortic aneurysm. There is no evidence of aortic dissection, leak, rupture, or other acute vascular pathology. There is no evidence of aortic dissection, leak, rupture, or other acute vascular pathology. Thyroid: The thyroid gland is normal. Lungs: There is a pulmonary parenchymal calcification consistent with remote granulomatous organism exposure. There is a subpleural 5.3 mm nodule in the left lower lobe seen on series 8, image 95. There is a 4.8 mm subpleural nodule in the posterior left thyroid lobe seen on series 8, image 114. There is a subpleural nodule in the anterior left mid lung seen on series 6, image 38 measuring approximately 1.8 mm seen on series 6, image 58. Minor nonspecific ground-glass opacities involve the dependent posterior lower lobes bilaterally. Pleural spaces: There are no pleural effusions. There is no evidence of pneumothorax. Heart: The heart is not enlarged. There is a trace amount of pericardial fluid. Esophagus: Apparent mild esophageal wall thickening could be on the basis of incomplete distension, but cannot exclude mild esophagitis. Cannot entirely exclude neoplastic process in the appropriate clinical setting. Correlate clinically. Lymph nodes: Calcified hilar and mediastinal lymph nodes indicate prior granulomatous disease. Liver: There is a 10 mm hepatic cyst. There is diffuse decrease in hepatic/liver parenchymal density consistent with fatty infiltration. Spleen: The spleen demonstrates punctate calcifications, consistent with remote granulomatous organism exposure. An accessory splenule is present. Bones/joints: Mild degenerative changes involve the bilateral sternoclavicular joints. Bilateral shoulder arthroplasties are present, ine history less near anatomic alignment. Streak artifact limits evaluation of adjacent structures. There is a mild convex right thoracic scoliosis.The thoracic spine demonstrates moderate degenerative changes at multiple levels. The visualized lower cervical spine demonstrates moderate discogenic and spondylitic degenerative changes. There is no evidence of acute fracture. There is slight retrolisthesis of C5 on C6. There is minor anterior spondylolisthesis of C6 on C7 and C7 over T1. Soft tissues: Unremarkable. IMPRESSION: 1. No evidence of pulmonary embolism. 2. Minor nonspecific ground-glass opacities involve the dependent posterior lower lobes bilaterally. Findings are nonspecific but may reflect atelectasis. 3. Apparent mild esophageal wall thickening could be on the basis of incomplete distension, but cannot exclude mild esophagitis or potentially neoplastic process in the appropriate clinical setting. Correlate clinically. 4. A few small nodules in the lungs. For patients at low risk (minimal or absent history of smoking and of other known risk factors), no routine follow-up is indicated. For patients at high risk (history of smoking or of other known risk factors), consider optional CT Chest at 12 months. (Reference: Samantha) REFERENCES: Samantha Phipps, et al. Guidelines for Management of Incidental Pulmonary Nodules Detected on CT Images: From the Fleischner Society 2017. Radiology. 2017;284(1):228-243.
--- NOTE | 2025-02-19 23:39 | CT_ITS ---
PROCEDURE INFORMATION: Exam: CT Head Without Contrast Exam date and time: 02/20/2025 12:53 AM Age: 74 years old Clinical indication: Stroke-like symptoms; Other: Confusion; Additional info: Hypotension transient confusion HX pres TECHNIQUE: Imaging protocol: Computed tomography of the head without contrast. Radiation optimization: All CT scans at this facility use at least one of these dose optimization techniques: automated exposure control; mA and/or kV adjustment per patient size (includes targeted exams where dose is matched to clinical indication); or iterative reconstruction. Other technique: STROKE PROTOCOL was implemented. COMPARISON: CT HEAD/BRAIN WO CON 01/25/2025 3:05 PM FINDINGS: Brain: Normal. No hemorrhage. Age appropriate white matter. No mass effect. No focal mass. The martin-white matter junction is intact. Cerebral ventricles: No ventriculomegaly. Paranasal sinuses: Visualized sinuses are unremarkable. No fluid levels. Mastoid air cells: Visualized mastoid air cells are well aerated. Bones: Unremarkable. No acute fracture. Soft tissues: Unremarkable. IMPRESSION: Unremarkable noncontrast examination of brain. There is no hemorrhage or mass. There is no large infarction seen. ASSESSMENT: ASPECTS ([place] Stroke Program Early CT Score) is 10.
--- OUTSIDE RECORDS SUMMARY | 2025-02-19 23:39 | XMS_ITS | Clinical Summary ---
Author Organization [facility] Address [address] [place] [address] Phone Care Team Providers Care Oracle Database Consultant Name Role Phone Tosin VARGAS, Chandra Flores Unavailable [phone] Chel VARGAS, Davidson Unavailable [phone] Timothy Granda Primary Care Provider Unavailabl e Reason for Visit and Chief Complaint INJECTION Problems Includes: Problems addressed during this encounter and other active Problems All Visits Onset Date Resolved Date Provider Condition S tatus Joint Pain Shoulder Left 03/16/2023 Funmi Robles PA-C Active Last Documented On 3 10:30AM ; [facility], [facility] Joint Pain Left Knee 03/31/2022 Jesus giles MD Active Last Documented On 2 10:01AM ; [facility], [facility] Joint Pain Right Knee 02/12/2019 Timothy dye MD Active Last Documented On 9 10:35AM ; [facility], [facility] Joint Pain Hip Right 02/12/2019 Timothy Foster MD Active Last Documented On 9 10:35AM ; [facility], [facility] Joint Pain Shoulder 05/29/2018 Bautista christie MD Active Last Documented On 9 10:31AM ; [facility], [facility] Plan of Treatment No Plan of Treatment Recorded Assessments Includes: Assessments from this encounter No Assessments Recorded Medical Equipment - Implanted Devices Includes: Current Devices No Medical Equipment Recorded Medications Includes: Medications discussed during this encounter and other current Medications Current Medications (continue as prescribed) Acyclovir 400 MG Oral Tablet 01/27/2024 Provider: Diagnosis: Last Documented On 4 2:44PM By Karen Ornelas ; [facility] oxyCODONE HCl 10 MG Oral Tablet 01/22/2024 Provider: Diagnosis: Last Documented On 4 2:44PM By Karen Ornelas ; [facility] Dicyclomine HCl 10 MG Oral Capsule 01/22/2024 Provid er: CASTILLO ESPINO II, MD Diagnosis: Last Documented On 4 2:44PM By Karen Ornelas ; [facility] tiZANidine HCl 4 MG Oral Tablet 01/18/2024 Provider: Diagnosis: Last Documented On 4 2:44PM By Karen Ornelas ; [facility] Sulfamethoxazole-Trimethoprim 400-80 MG Oral Tablet Provider: Diagnosis: Last Documented On 4 2:44PM By Karen Ornelas ; [facility] DULoxetine HCl 60 MG Oral Capsule Delayed Releas e Particles 01/18/2024 Provider: Diagnosis: Last Documented On 4 2:44PM By Karen Ornelas ; [facility] HYDROmorphone HCl 4 MG Oral Tablet 01/08/2024 Provid er: Diagnosis: Last Documented On 4 2:44PM By Karen Ornelas ; [facility] Fluticasone-Salmeterol 100-5 0 MCG/ACT Inhalation Aerosol Powder Breath Activated 01/08/2024 Provider: Diagnosis: Last Documented On 4 2:44PM By Karen Ornelas ; [facility] Atorvastatin Calcium 40 MG Oral Tablet 01/08/2024 Pr ovider: Diagnosis: Last Documented On 4 2:44PM By Karen Ornelas ; [facility] Levothyroxine Sodium 25 MCG Oral Tablet 12/31/2023 P rovider: Diagnosis: Last Documented On 4 2:44PM By Karen Ornelas ; [facility] Eliquis 5 MG Oral Tablet 12/31/2023 Provider: Diagnosis: Last Documented On 4 2:44PM By Karen Ornelas ; [facility] Atorvastatin Calcium 20 MG Oral Tablet 12/31/2023 Pr ovider: Diagnosis: Last Documented On 4 2:44PM By Karen Ornelas ; [facility] amLODIPine Besylate 5 MG Oral Tablet 12/10/2023 Prov ider: Diagnosis: Last Documented On 4 2:44PM By Karen Ornelas ; [facility] Albuterol Sulfate 108 (90 Ba se) MCG/ACT Inhalation Aerosol Powder Breath Activated 06/15/2022 Provider: Diagnosis: Last Documented On 3 8:21AM By Mreari Parson ; [facility] Cymbalta 20 MG Oral Capsule Delayed Release Particles 06/15/2022 Provider: Diagnosis: Last Documented On 3 8:21AM By Merari Parson ; [facility] Estradiol 0.1 MG/GM Vaginal Cream 06/15/2022 Provide r: Diagnosis: Last Documented On 3 9:04AM By Merari Parson ; [facility] Retin-A 0.1% External Cream 06/15/2022 Provider: Diagnosis: Last Documented On 3 9:03AM By Merari Parson ; [facility], [facility] Nystatin-Triamcinolone 837612-5.1 UNIT/GM-% External C ream 06/15/2022 Provider: Diagnosis: Last Documented On 3 9:02AM By Merari Parson ; [facility] Triamcinolone Acetonide 0.1% External Cream 06/15/2022 Provider: Diagnosis: Last Documented On 3 8:29AM By Merari Parson ; [facility] oxyCODONE HCl 10 MG Oral Tablet 06/15/2022 Provider: Diagnosis: Last Documented On 3 8:27AM By Merari Parson ; [facility], [facility] Losartan Potassium 50 MG Oral Tablet 06/15/2022 Prov ider: Diagnosis: Last Documented On 3 8:26AM By Merari Parson ; [facility] Fluticasone-Salmeterol 250-5 0 MCG/ACT Inhalation Aerosol Powder Breath Activated 06/15/2022 Provider: Diagnosis: Last Documented On 3 8:25AM By Merari Parson ; [facility] Diphenoxylate-Atropine 2.5-0.025 MG Oral Tablet 2022 Provider: Diagnosis: Last Documented On 3 8:22AM By Merari Parson ; [facility] Acyclovir 400 MG Oral Tablet 10/05/2020 Provider: Diagnosis: Last Documented On 1 3:19PM By Adele Sawyer [facility] Medications Administered Includes: Administered Medications [...] Active Last Documented On 06/16/2024 12:48PM ; [facility] Note: joint pain- Major fluoroquinolones Allergy 09/04/2018 Ac tive Last Documented On 5 12:48PM ; [facility] Encounters Encounter Provider Location Date Check-In Time Check-Out Time Diagnosis INJECTION Fab Li PA-C [facility] 04/12/19 24 2:28PM 2:56PM Insurance Includes: Active Insurance Policies Plan Name Member ID Group # Subscriber Relationship Effect sherman Dates 1 - Medicare Part B [facility] [id number] Farrah Atkinson Self 4 - Unknown 2 - [facility] [id number] Farrah Atkinson Self 05/03/2019 - Unknown Clinical Notes Includes: Clinical Notes from this encounter * Progress note Date Encounter Last Documented by 04/12/2023 INJECTION Last documented on 04/12/2023; 3:29 PM, Fab Li PA-C; [facility] Physical Findings HPI: Left shoulder [...]
--- OUTSIDE RECORDS SUMMARY | 2025-02-19 23:39 | XMS_ITS | Encounter Summary ---
Author Organization [facility] Address [address] [place] [address] Care Team Providers Care Archeologist Name Role Phone Connor Gomez MD Primary Care Provider [phone] Encounter Details Date Type Department Care Team [...] and heating? Patient unable to answer 01/26/2025 [facility] [place] of Occupat ional Health - Occupational Stress [...] things needed for daily living? No 01/26/2025 [facility] Utilities Answer Date Recorded In the past 12 months has th e [email or web address], gas, oil, or water company threatened to [...] Patient unable to answer 01/26/2025 Preferred Language Wallisian 01/26/2025 Comments No Sex and Gender Information [...] documented as of this encounter Care Teams Archeologist Relationship Specialty Start Date End Date Connor Gomez MD [address] [place] [address] PCP - General Family Medicine 01/26/25 documented as of this encounter
--- OUTSIDE RECORDS SUMMARY | 2025-02-19 23:39 | XMS_ITS | Clinical Summary ---
Author Organization [facility] Address [address] [place] [address] Phone Care Team Providers Care Color Print Inspector Name Role Phone Unavailable Unavailable Conditions or Problems No information available. Medications No information available. Medications Administered No information available. Allergies, Adverse Reactions, Alerts No information available. Results No information available. Plan of Care No information available. Procedures No information available. Vital Signs No information available. Immunizations No information available. Advance Directives No information available.
--- OUTSIDE RECORDS SUMMARY | 2025-02-19 23:39 | XMS_ITS | Encounter Summary ---
Author Organization [facility] Address [address] [place] [address] Care Team Providers Care Claims Supervisor Name Role Phone Connor Gomez MD Primary Care Provider [phone] Encounter Details Date Type Department Care Team [...] and heating? Patient unable to answer 01/26/2025 [facility] [place] of Occupat ional Health - Occupational Stress [...] things needed for daily living? No 01/26/2025 [facility] Utilities Answer Date Recorded In the past 12 months has th e [employer], gas, oil, or water company threatened to [...] Patient unable to answer 01/26/2025 Preferred Language Palauan 01/26/2025 Comments No Sex and Gender Information [...] documented as of this encounter Care Teams Claims Supervisor Relationship Specialty Start Date End Date Connor Gomez MD [address] [place] [address] PCP - General Family Medicine 01/26/25 documented as of this encounter
--- OUTSIDE RECORDS SUMMARY | 2025-02-19 23:39 | XMS_ITS ---
Author Organization [facility] , [facility] Address [address] [place] [address] Phone Care Team Providers Care Surgical Coordinator Name Role Phone Tosin VARGAS, Chandra Flores Unavailable [phone] Chel VARGAS, Davidson Unavailable [phone] Timothy Granda Primary Care Provider Unavailabl e [...] Active Last Documented On 3 10:30AM ; [facility], [facility] Joint Pain Left Knee 03/31/2022 Jesus giles MD Active Last Documented On 2 10:01AM ; [facility], [facility] Joint Pain Right Knee 02/12/2019 Timothy dye MD Active Last Documented On 9 10:35AM ; [facility], [facility] Joint Pain Hip Right 02/12/2019 Timothy Foster MD Active Last Documented On 9 10:35AM ; [facility], [facility] Joint Pain Shoulder 05/29/2018 Bautista christie MD Active Last Documented On 9 10:31AM ; [facility], [facility] Plan of Treatment Findings Encounter Date Patient screened for future fall risk: documentation of any fall with injury in past year Follow Up with Jesus Espinosa MD 06/16/2024 Last Documented On 5 1:41PM ; [facility] Patient screened for future fall risk: documentation of any fall with injury in past year Follow Up with Chandra Grewal PA-C 01/30/2024 Last Documented On 4 4:58PM ; [facility] Pending Tests Order Diagnosis Results Due Ordering P rovider Radiology - MRI MRI R Knee Derang of medial meniscus due to old tear/inj, right knee 05/27/19 Timothy Foster MD Last Documented On 0 12:04PM ; [facility], [facility] Radiology - CT Scan Shoulder Overweight 03/30/23 Bari Robles PA-C Last Documented On 3 11:26AM ; [facility] Referrals To Diagnosis Consult with Orthopedic Overweig ht Note: REFFERAL TO SHARON Orozco @ [facility] ) Last Documented On 4 4:58PM ; [facility], [facility] Consult with Orthopedic Overweig ht Note: Dr Sharon Keller [facility] // cc Last Documented On 4 11:37AM ; [facility] Instructions to patient Lose weight Last Documented On 5 12:49PM ; [facility] Lose weight Last Documented On 5 12:50PM ; [facility] Lose weight Last Documented On 4 2:44PM ; [facility] Lose weight Last Documented On 4 2:05PM ; [facility] Lose weight Last Documented On 3 10:32AM ; [facility] Lose weight Last Documented On 3 8:11AM ; [facility] Lose weight Last Documented On 2 10:02AM ; [facility] Lose weight Last Documented On 2 8:00AM ; [facility] Instructions for patient see pcp for bp Last Documented On 0 1:11PM ; [facility] Instructions for patient [...] Documented On 9 1:46PM ; [facility] Instructions for patient to see pcp for bp Last Documented On 9 2:20PM ; [facility] Instructions for patient see pcp for bp Last Documented On 9 2:29PM ; [facility] Instructions for patient see pcp for bp Last Documented On 9 1:12PM ; [facility] Medical Equipment - Implanted Devices Includes: Current and historical Devices No Medical Equipment Recorded Medications Includes: Current and historical Medications Current Medications (continue as prescribed) Acyclovir 400 MG Oral Tablet 01/27/2024 Provider: Diagnosis: Last Documented On 4 2:44PM By Karen Ornelas ; [facility], [facility] oxyCODONE HCl 10 MG Oral Tablet 01/22/2024 Provider: Diagnosis: Last Documented On 4 2:44PM By Karen Ornelas ; [facility] Dicyclomine HCl 10 MG Oral Capsule 01/22/2024 Provid er: CASTILLO ESPINO II, MD Diagnosis: Last Documented On 4 2:44PM By Karen Ornelas ; [facility] tiZANidine HCl 4 MG Oral Tablet 01/18/2024 Provider: Diagnosis: Last Documented On 4 2:44PM By Karen Ornelas ; [facility], [facility] Sulfamethoxazole-Trimethoprim 400-80 MG Oral Tablet Provider: Diagnosis: Last Documented On 4 2:44PM By Karen Ornelas ; [facility], [facility] DULoxetine HCl 60 MG Oral Capsule Delayed Releas e Particles 01/18/2024 Provider: Diagnosis: Last Documented On 4 2:44PM By Karen Ornelas ; [facility] HYDROmorphone HCl 4 MG Oral Tablet 01/08/2024 Provid er: Diagnosis: Last Documented On 4 2:44PM By Karen Ornelas ; [facility], [facility] Fluticasone-Salmeterol 100-5 0 MCG/ACT Inhalation Aerosol Powder Breath Activated 01/08/2024 Provider: Diagnosis: Last Documented On 4 2:44PM By Karen Ornelas ; [facility], [facility] Atorvastatin Calcium 40 MG Oral Tablet 01/08/2024 Pr ovider: Diagnosis: Last Documented On 4 2:44PM By Karen Ornelas ; [facility], [facility] Levothyroxine Sodium 25 MCG Oral Tablet 12/31/2023 P rovider: Diagnosis: Last Documented On 4 2:44PM By Karen Ornelas ; [facility], [facility] Eliquis 5 MG Oral Tablet 12/31/2023 Provider: Diagnosis: Last Documented On 4 2:44PM By Karen Ornelas ; [facility], [facility] Atorvastatin Calcium 20 MG Oral Tablet 12/31/2023 Pr ovider: Diagnosis: Last Documented On 4 2:44PM By Karen Ornelas ; [facility], [facility] amLODIPine Besylate 5 MG Oral Tablet 12/10/2023 Prov ider: Diagnosis: Last Documented On 4 2:44PM By Karen Ornelas ; [facility], [facility] Albuterol Sulfate 108 (90 Ba se) MCG/ACT Inhalation Aerosol Powder Breath Activated 06/15/2022 Provider: Diagnosis: Last Documented On 3 8:21AM By Merari Parson ; [facility], [facility] Cymbalta 20 MG Oral Capsule Delayed Release Particles 06/15/2022 Provider: Diagnosis: Last Documented On 3 8:21AM By Merari Parson ; [facility], [facility] Estradiol 0.1 MG/GM Vaginal Cream 06/15/2022 Provide r: Diagnosis: Last Documented On 3 9:04AM By Merari Parson ; [facility], [facility] Retin-A 0.1% External Cream 06/15/2022 Provider: Diagnosis: Last Documented On 3 9:03AM By Merari Parson ; [facility], [facility] Nystatin-Triamcinolone 691583-8.1 UNIT/GM-% External C ream 06/15/2022 Provider: Diagnosis: Last Documented On 3 9:02AM By Merari Parson ; [facility], [facility] Triamcinolone Acetonide 0.1% External Cream 06/15/2022 Provider: Diagnosis: Last Documented On 3 8:29AM By Merari Parson ; [facility], [facility] oxyCODONE HCl 10 MG Oral Tablet 06/15/2022 Provider: Diagnosis: Last Documented On 3 8:27AM By Merari Parson ; [facility], [facility] Losartan Potassium 50 MG Oral Tablet 06/15/2022 Prov ider: Diagnosis: Last Documented On 3 8:26AM By Merari Parson ; [facility], [facility] Fluticasone-Salmeterol 250-5 0 MCG/ACT Inhalation Aerosol Powder Breath Activated 06/15/2022 Provider: Diagnosis: Last Documented On 3 8:25AM By Merari Parson ; [facility], [facility] Diphenoxylate-Atropine 2.5-0.025 MG Oral Tablet 2022 Provider: Diagnosis: Last Documented On 3 8:22AM By Merari Parson ; [facility], [facility] Acyclovir 400 MG Oral Tablet 10/05/2020 Provider: Diagnosis: Last Documented On 1 3:19PM By Adele Trevino ; [facility], [facility] Past Medications on file Acyclovir 400 MG Oral Tablet 03/12/2023 - 01/30/2024 Richardson greenbergder: Chandra Leahy MD Diagnosis: Last Documented On 4 2:43PM By Karen Ornelas ; [facility], [facility] Eliquis 5 MG Oral Tablet 03/12/2023 - 01/30/2024 Provi kiera: Chandra Leahy MD Diagnosis: Last Documented On 4 2:43PM By Karen Ornelas ; [facility], [facility] Diphenoxylate-Atropine 2.5-0.025 MG Oral Tablet 03/09/2023 - 01/30/2024 Provider: Diagnosis: Last Documented On 4 2:43PM By Karen Ornelas ; [facility], [facility] OxyCONTIN 20 MG Oral Tablet ER 12 Hour Abuse-Deterrent 03/09/2023 - 01/30/2024 Provider: Diagnosis: Last Documented On 4 2:43PM By Karen Ornelas ; [facility] Sulfamethoxazole-Trimethopri m 400-80 MG Oral Tablet 03/09/2023 - 01/30/2024 Provider: Diagnosis: Last Documented On 4 2:43PM By Karen Ornelas ; [facility] Potassium Chloride Amy ER 2 0 MEQ Oral Tablet Extended Release 03/01/2023 - 01/30/2024 Provider: MADI CHAPIN MD Diagnosis: Last Documented On 4 2:43PM By Karen Ornelas ; [facility] Levothyroxine Sodium 25 MCG Oral Tablet 03/01/2023 - 01/30/2024 Provider: Chandra Leahy MD Diagnosis: Last Documented On 4 2:43PM By Karen Ornelas ; [facility], [facility] amLODIPine Besylate 5 MG Oral Tablet 02/28/2023 - 01/02 Provider: Diagnosis: Last Documented On 4 2:43PM By Karen Ornelas ; [facility], [facility] Cephalexin 500 MG Oral Capsule 02/26/2023 - 01/30/2024 Provider: Diagnosis: Last Documented On 4 2:43PM By Karen Ornelas ; [facility] oxyCODONE HCl 10 MG Oral Tablet 02/23/2023 - Provider: Chandra Leahy MD Diagnosis: Last Documented On 4 2:43PM By Karen Ornelas ; [facility], [facility] oxyCODONE HCl 5 MG Oral Tablet 07/19/2022 - 07/29/2022 Provider: Jesus Zimmer MD Diagnosis: Take 1 tablet by mouth every 4-6 hrs for break through pain Last Documented On 3 11:00AM By Jesus Espinosa ; [facility] Meloxicam 15 MG Oral Tablet 07/03/2022 - 07/17/2022 Pr ovider: Jesus Espinosa MD Diagnosis: once a day Last Documented On 3 8:45AM By Barbara Correa ; [facility], [facility] Ondansetron HCl 4 MG Oral Tablet 06/30/2022 - 07/07/2022 Provider: Jesus Zimmer MD Diagnosis: 1 po q 6h prn nausea Last Documented On 3 1:35PM By Jesus Espinosa ; [facility], [facility] oxyCODONE HCl 5 MG Oral Tablet 06/30/2022 - 07/10/2022 Provider: Jesus Zimmer MD Diagnosis: Take 1 tablet by mouth every 4-6 hrs for break through pain Last Documented On 3 1:35PM By Jesus Espinosa ; [facility], [facility] Acetaminophen 500 MG Oral Tablet 06/30/2022 - 07/14/2022 Provider: Jesus Zimmer MD Diagnosis: Take 2 tablets by mouth every 8 hours Last Documented On 3 1:35PM By Jesus Espinosa ; [facility], [facility] Cefadroxil 500 MG Oral Capsule 06/30/2022 - 07/07/2022 Provider: Jesus Zimmer MD Diagnosis: Take 1 tablet by mouth every 12 hours for 7 days Last Documented On 3 1:35PM By Jesus Espinosa ; [facility], [facility] Aspirin EC 81 MG Oral Tablet Delayed Release 06/30/2022 - 08/11/2022 Provider: Jesus Espinosa MD Diagnosis: Take 1 tablet by mouth every 12 hours for 42 days post op Last Documented On 3 1:35PM By Jesus Espinosa ; [facility], [facility] Vitamin D3 50 MCG (1999 [place]) Oral Tablet 06/20/2022 - 07/20/2022 Provider: Diana ABDI Diagnosis: once a day Last Documented On 3 1:03PM By Diana Rosas ; [facility] EC-RX Estradiol 0.4% Transdermal Cream 06/15/2022 - Provider: Diagnosis: Last Documented On 3 9:04AM By Merari Parson ; [facility], [facility] Retin-A 0.025% External Cream 06/15/2022 - 06/15/2022 Provider: Diagnosis: Last Documented On 3 9:03AM By Merari Parson ; [facility], [facility] Nystatin [id number] UNIT/GM External Cream 06/15/2022 - Provider: Diagnosis: Last Documented On 3 9:03AM By Merari Parson ; [facility] amLODIPine Besylate 10 MG Or al Tablet 02/10/2022 - 01/30/2024 Provider: MADI CHAPIN MD Diagnosis: Last Documented On 4 2:44PM By Karen Ornelas ; [facility] Atorvastatin Calcium 20 MG O ral Tablet 01/30/2022 - 01/30/2024 Provider: MADI CHAPIN MD Diagnosis: Last Documented On 4 2:44PM By Karen Ornelas ; [facility] cloNIDine HCl 0.1 MG Oral Tablet 01/10/2022 - 01/30/20 24 Provider: Diagnosis: Last Documented On 4 2:44PM By Karen Ornelas ; [facility] Potassium Chloride Amy ER 2 0 MEQ Oral Tablet Extended Release 11/28/2021 - 01/30/2024 Provider: MADI CHAPIN MD Diagnosis: Last Documented On 4 2:44PM By Karen Ornelas ; [facility] cloNIDine HCl 0.1 MG Oral Tablet 10/05/2020 - 11/05/19 21 Provider: Diagnosis: Last Documented On 1 3:16PM By Adele Trevino ; [facility] Fetzima 40mg Oral Tablet 10/05/2020 - 06/15/2022 Provi kiera: Diagnosis: Last Documented On 3 8:29AM By Merari Parson ; [facility] cloNIDine HCl 0.1 MG Oral Tablet 10/05/2020 - 10/06/19 21 Provider: Diagnosis: Last Documented On 1 3:16PM By Adele Trevino ; [facility] Acyclovir 400 MG Oral Tablet 10/05/2020 - 10/05/2020 P rovider: Diagnosis: Last Documented On 1 3:19PM By Adele Trevino ; [facility] Vicodin HP 10-300 MG Oral Tablet 10/05/2020 - 06/16/19 23 Provider: Diagnosis: Last Documented On 3 8:30AM By Merari Parson ; [facility] Atorvastatin Calcium 20 MG Oral Tablet 10/05/2020 - Provider: Diagnosis: Last Documented On 1 3:18PM By Adele Trevino ; [facility] Atorvastatin Calcium 20 MG O ral Tablet 10/05/2020 - 11/04/2020 Provider: MADI CHAPIN MD Diagnosis: Last Documented On 1 3:18PM By Adele Trevino ; [facility] Percocet 7.5-325 MG Oral Tablet 10/07/2019 - Provider: Timothy Foster MD Diagnosis: 1 every 4 - 6 hours prn post op pain Last Documented On 1 3:16PM By Adele Trevino ; [facility] Zofran 4 MG Oral Tablet 09/24/2019 - 10/05/2020 Provid er: Timothy Foster MD Diagnosis: 1 tab every 6 hrs prn pain Last Documented On 1 3:17PM By Adele Trevino ; [facility] Keflex 250 MG Oral Capsule 09/24/2019 - 10/05/2020 Pro vider: Timothy Foster MD Diagnosis: four times a day Last Documented On 1 3:17PM By Adele Trevino ; [facility] Aspirin 325 MG Oral Tablet 09/24/2019 - 10/05/2020 Pro vider: Timothy Foster MD Diagnosis: twice a day Last Documented On 1 3:16PM By Adele Trevino ; [facility] Xarelto 10 MG Oral Tablet 09/24/2019 - 10/05/2020 Prov ider: Timothy Foster MD Diagnosis: once a day for first seven d ays after joint replacement, then transiition to aspirin Last Documented On 1 3:17PM By Adele Trevino ; [facility] Percocet 7.5-325 MG Oral Tablet 09/24/2019 - Provider: Timothy Foster MD Diagnosis: 1 every 4 - 6 hours prn post op pain Last Documented On 3:16PM By Adelemaribel Trevino ; [facility] Mupirocin 2% External Ointment 07/31/2019 - 10/05/2020 Provider: Timothy Foster MD Diagnosis: take as directed Apply cream twice a day to each nostril five days prior to surgery. Last Documented On 3:17PM By Adele Belinda ; [facility], [facility] Freeman Spur 10-325 MG Oral Tablet 04/25/2019 - 10/05/2020 Pr ovider: Timothy Foster MD Diagnosis: [id number] prn post op pain Last Documented On 3:17PM By Adelejudy Trevino ; [facility], [facility] Nystatin [id number] UNIT/GM Exte rnal Cream 01/20/2019 - 10/05/2020 Provider: MADI CHAPIN MD Diagnosis: Last Documented On 3:18PM By Adelemaribel Trevino ; [facility] Clindamycin-Tretinoin 1.2-0. 025% External Gel 01/20/2019 - 10/05/2020 Provider: MADI CHAPIN MD Diagnosis: Last Documented On 3:19PM By Adelemaribel Trevino ; [facility], [facility] Estradiol 0.025 MG/24HR Saba sdermal Patch Twice Weekly 01/17/2019 - 10/05/2020 Provider: Diagnosis: Last Documented On 3:19PM By Adele Belinda ; [facility] Lisinopril 5MG Oral Tablet 08/12/2018 - 10/05/2020 Pro vider: MADI CHAPIN MD Diagnosis: Last Documented On 3:18PM By [facility] ; [facility] oxyCODONE HCl 5MG Oral Tablet 07/22/2018 - 10/05/2020 Provider: Bautista christie MD Diagnosis: 1-2 po q 4-6h prn post op pain Last Documented On 07/06/202 1 3:17PM By Adele Trevino ; [facility] oxyCODONE HCl 5MG Oral Tablet 07/17/2018 - 10/05/2020 Provider: Bautista christie MD Diagnosis: 1-2 po q 4-6h prn post op pain Last Documented On 1 3:17PM By Adele Trevino ; [facility] Zofran 4MG Oral Tablet 07/17/2018 - 10/05/2020 Provide r: Bautista Luis MD Diagnosis: Take 1 tablet every 8 hrs pr n pain Take 1 tablet every 8 hrs prn post op nausea Last Documented On 1 3:17PM By Adelemaribel Trevino ; [facility] Benzoyl Peroxide Wash 5% External Liquid 07/17/2018 - 10/05/2020 Provider: Bautista christie MD Diagnosis: use as directed by Dr. Luis Last Documented On 1 3:17PM By Adele Trevino ; [facility] Acyclovir 400MG Oral Tablet 05/29/2018 - 10/05/2020 Pr ovider: Diagnosis: Last Documented On 1 3:19PM By Adele Trevino ; [facility] Estradiol 1MG Oral Tablet 05/29/2018 - 10/05/2020 Prov ider: Diagnosis: Last Documented On 1 3:18PM By Adele Trevino ; [facility] Lomotil 2.5-0.025MG Oral Tablet 05/29/2018 - Provider: Diagnosis: Last Documented On 1 3:17PM By Adele Trevino ; [facility] Atorvastatin Calcium 20MG Or al Tablet 05/14/2018 - 10/05/2020 Provider: MADI CHAPIN MD Diagnosis: Last Documented On 1 3:18PM By Adele Trevino ; [facility] Nortriptyline HCl 50MG Oral Capsule 05/03/2018 - 10/05 Provider: Diagnosis: Last Documented On 1 3:16PM By Adele Trevino ; [facility] cloNIDine HCl 0.1MG Oral Tablet 05/03/2018 [...] By Adele Trevino ; [facility] traMADol HCl 50MG Oral Tablet 04/30/2018 - 10/05/2020 Provider: Baldemar Duckworth MD Diagnosis: Last Documented On 1 3:16PM By Adele Trevino ; [facility] Medications Administered Includes: Administered Medications in patient's chart No Administered Medications Recorded Vital Signs Includes: Vital Signs from 02/20/2024 through 02/19/2025 Vital Name 06/16/2024 01:12P Height (in) 62 Weight (lb) 160 Body Mass Index 29.3 Body Surface Area 1.7 Note: jaa Last Documented: On 06/16/2024 1:12PM ; [facility] Results Includes: Results from 02/20/2024 through 02/19/2025 No Results Recorded For Specified Dates History [...] 10/05/2020 Last Documented On 1 1:17PM ; [facility] Not a current smoker. 10/05/2020 Last Documented On 1 1:17PM ; [facility] Not using alcohol 10/05/2020 Last Documented On 1 1:17PM ; [facility] Not using drugs 10/05/2020 Last Documented On 1 1:17PM ; [facility] Non-smoker 10/05/2020 Last Documented On 1 1:17PM ; [facility] Not a current smoker 05/29/2018 Last Documented On 9 9:38AM ; [facility] No tobacco use 05/29/2018 Last Documented On 9 9:38AM ; [facility] Smoking status : Former smoker 9 Last Documented On 9 9:38AM ; [facility], [facility] Procedures and Surgical History Includes: Procedures from 02/20/2024 through 02/19/2025 Procedures Code Diagnosis Performing Provider Service Location Service Date HIP BILATERAL [id number] Unilateral prima ry osteoarthritis, right hip, Trochanteric bursitis, left hip Jesus Espinosa MD [facility] 06/16/2024 Last Documented On 5 1:32PM ; [facility] Surgical History Last Updated History of History of Arthroscopy 2023 Last Documented On 4 4:58PM ; [facility] History of Previous Fractures 01/30/2024 Last Documented On 4 4:58PM ; [facility] History of total hip replacement 024 Last Documented On 4 4:58PM ; [facility] History of total knee arthroplasty 01/29 Last Documented On 4 4:58PM ; [facility], [facility] Past Surgical History: 03/16/2023 Last Documented On 3 11:26AM ; [facility], [facility] Medical History Includes: Medical History in patient's chart Description Last Updated History of asthma 01/30/2024 Last Documented On 4 4:58PM ; [facility] History of History of Blood Transfusion 01/30/2024 Last Documented On 4 4:58PM ; [facility] History of Hypertension 01/30/2024 Last Documented On 4 4:58PM ; [facility] History of Anemia 03/16/2023 Last Documented On 3 11:26AM ; [facility] History of arthritis 03/16/2023 Last Documented On 3 11:26AM ; [facility] History of History of Blood Clots 2022 Last Documented On 3 11:26AM ; [facility] Anemia 10/05/2020 Last Documented On 1 1:17PM ; [facility] Arthritis 10/05/2020 Last Documented On 1 1:17PM ; [facility] History of Arthroscopy 10/05/2020 Last Documented On 1 1:17PM ; [facility] Recent immunization for flu 10/05/2020 Last Documented On 1 1:17PM ; [facility] Recent immunization for pneumococcal pne umonia 10/05/2020 Last Documented On 1 1:17PM ; [facility], [facility] Shoulder arthroplasty 10/05/2020 Last Documented On 1 1:17PM ; [facility] Total hip replacement 10/05/2020 Last Documented On 1 1:17PM ; [facility], [facility] Total knee arthroplasty 10/05/2020 Last Documented On 1 1:17PM ; [facility], [facility] arthroscopy ~total joint replacement ~hi gh cholesterol 05/29/2018 Last Documented On 9 9:38AM ; [facility], [facility] Arthritic joint problems 05/29/2018 Last Documented On 9 9:38AM ; [facility], [facility] History of depression 05/29/2018 Last Documented On 9 9:38AM ; [facility], [facility] History of hepatitis C 05/29/2018 Last Documented On 9 9:38AM ; [facility] Family History Includes: Family History in patient's chart Description Last Updated Family history of cancer 10/05/2020 Last Documented On 1 1:17PM ; [facility] Family history of osteoporosis 1 Last Documented On 1 1:17PM ; [facility] Family history of thromboembolic disease 05/29/2018 Last Documented On 9 9:38AM ; [facility] No significant family history maternal- Breast cancer 05/29/2018 Last Documented On 9 9:38AM ; [facility] Review of Systems Review of Systems [...] Active Last Documented On 06/16/2024 12:48PM ; [facility] Note: joint pain- Major fluoroquinolones Allergy 09/04/2018 Ac tive Last Documented On 5 12:48PM ; [facility] Encounters Includes: Encounters from 02/20/2024 through 02/19/2025 Encounter Provider Location Date Check-In Time Check- Out Time Diagnosis Follow Up Jesus Espinosa MD [facility] 5 12:43PM 1:40PM Insurance Includes: Active Insurance Policies Plan Name Member ID Group # Subscriber Relationship Effect sherman Dates 1 - Medicare Part B [facility] [id number] Farrah Atkinson Self 4 - Unknown 2 - [facility] [id number] Farrah Atkinson Self 05/03/2019 - Unknown Clinical Notes Includes: Signed Clinical Notes starting from 03/16/2022 * Progress note Date Encounter Last Documented by 06/16/2024 Follow Up Last documented on 06/16/2024; 1:41 PM, Jesus Espinosa MD; [facility] Active Problems & Conditions - [...] total hip replacement done in 2007 in [place]. She states she is having groin pain [...] directed 0 days, 0 refills - Nystatin-Triamcinolone 177108-4.1 UNIT/GM-% External Cream take as directed 0 [...] Care Team - Chandra Leahy MD - CD TECHNICIAN
--- OUTSIDE RECORDS SUMMARY | 2025-02-19 23:39 | XMS_ITS | Encounter Summary ---
Author Organization [facility] Address [address] [place] [address] Care Team Providers Care Wash Oil Pump Operator Helper Name Role Phone Connor Gomez MD Primary Care Provider [phone] Encounter Details Date Type Department Care Team (Late st Contact Info) Description 01/29/2025 Readmission Management [facility] NURSE CALL [facility]ENTER [address] [place] [id number] Bg Shaikh, RN Social History Tobacco [...] and heating? Patient unable to answer 01/26/2025 [facility] Phil Campbell of Occupat ional Health - Occupational Stress [...] In the past 12 months has th [employer] electric, gas, oil, or water company threatened [...] Patient unable to answer 01/26/2025 Preferred Language Djiboutian 01/26/2025 Comments No Sex and Gender Information Value Date Recorded Sex Assigned at Not on file Legal Sex Female 10:14 AM EST Gender Identity Not on file Sexual Orientation Not on file documented as of this encounter Miscellaneous Notes * Outreach Note - Bg Shaikh RN - 01/29/2025 8:01 PM EDT Prep Survey Flowsheet Row Responses [facility] facility patient discharged from? [place] Is LACE score less than 10 ? [...] documented as of this encounter Care Teams Wash Oil Pump Operator Helper Relationship Specialty Start Date End Date Connor Gomez MD [address] [place] [address] PCP - General Family Medicine 01/26/25 documented as of this encounter
--- OUTSIDE RECORDS SUMMARY | 2025-02-19 23:39 | XMS_ITS | Clinical Summary ---
Author Organization [facility] , [facility] Address [address] [place] [address] Phone Care Team Providers Care Millwright Instructor Name Role Phone Tosin VARGAS, Chandra Flores Unavailable [phone] Davidson Milligan MD Unavailable [phone] Timothy Granda Primary Care Provider Unavailabl e Reason for Visit and Chief Complaint The Chief Complaint is: Left shoulder pain Problems Includes: Problems addressed during this encounter and other active Problems Current Visit Onset Date Resolved Date Provider Conditio n Status Joint Pain Shoulder Left 03/16/2023 Funmi Robles PA-C Active Last Documented On 3 10:30AM ; [facility] Past Visits Onset Date Resolved Date Provider Condition Status Joint Pain Left Knee 03/31/2022 Jesus Espinosa MD Active Last Documented On 2 10:01AM ; [facility] Joint Pain Right Knee 02/12/2019 Timothy dye MD Active Last Documented On 9 10:35AM ; [facility] Joint Pain Hip Right 02/12/2019 Timothy Foster MD Active Last Documented On 9 10:35AM ; [facility] Joint Pain Shoulder 05/29/2018 Bautista christie MD Active Last Documented On 9 10:31AM ; [facility] Plan of Treatment Fall Risk Assessment: This [...] Documented On 03/16/2023 11:26AM ; [facility], [facility] she had progressive pain over the [...] Documented On 03/16/2023 11:26AM ; [facility] Pending Tests Order Diagnosis Results Due Ordering P rovider Radiology - CT Scan Shoulder Overweight 03/30/23 Bari Robles PA-C Last Documented On 3 11:26AM ; [facility] Instructions to patient Lose weight Last Documented On 3 10:32AM ; [facility], [facility] Assessments Includes: Assessments from this encounter Findings - Overweight - Last Documented On 03/16/2023 11:26AM ; [facility] left total shoulder - Last Documented On 03/16/2023 11:26AM ; [facility] Instructions Includes: Instructions from this encounter Instructions to patient Lose weight Last Documented On 3 10:32AM ; [facility], [facility] Medical Equipment - Implanted Devices Includes: Current Devices No Medical Equipment Recorded Medications Includes: Medications discussed during this encounter and other current Medications Current Medications (continue as prescribed) Acyclovir 400 MG Oral Tablet 01/27/2024 Provider: Diagnosis: Last Documented On 4 2:44PM By Karen [facility], [facility] oxyCODONE HCl 10 MG Oral Tablet 01/22/2024 Provider: Diagnosis: Last Documented On 4 2:44PM By Karen [facility] Dicyclomine HCl 10 MG Oral Capsule 01/22/2024 Provid er: CASTILLO ESPINO II, MD Diagnosis: Last Documented On 4 2:44PM By Karen Ornelas ; [facility] tiZANidine HCl 4 MG Oral Tablet 01/18/2024 Provider: Diagnosis: Last Documented On 4 2:44PM By Karen Ornelas ; [facility] Sulfamethoxazole-Trimethoprim 400-80 MG Oral Tablet Provider: Diagnosis: Last Documented On 4 2:44PM By Karen Ornelas ; [facility] DULoxetine HCl 60 MG Oral Capsule Delayed Releas e Particles 01/18/2024 Provider: Diagnosis: Last Documented On 4 2:44PM By Karen Ornelas ; [facility] HYDROmorphone HCl 4 MG Oral Tablet 01/08/2024 Provid er: Diagnosis: Last Documented On 4 2:44PM By Karen Ornelas ; [facility] Fluticasone-Salmeterol 100-5 0 MCG/ACT Inhalation Aerosol Powder Breath Activated 01/08/2024 Provider: Diagnosis: Last Documented On 4 2:44PM By Karen Ornelas ; [facility], [facility] Atorvastatin Calcium 40 MG Oral Tablet 01/08/2024 Pr ovider: Diagnosis: Last Documented On 4 2:44PM By Karen Ornelas ; [facility] Levothyroxine Sodium 25 MCG Oral Tablet 12/31/2023 P dionicioder: Diagnosis: Last Documented On 4 2:44PM By Karen Ornelas ; [facility] Eliquis 5 MG Oral Tablet 12/31/2023 Provider: Diagnosis: Last Documented On 4 2:44PM By Karen Onrelas ; [facility] Atorvastatin Calcium 20 MG Oral Tablet 12/31/2023 Pr ovider: Diagnosis: Last Documented On 4 2:44PM By Karen Ornelas ; [facility] amLODIPine Besylate 5 MG Oral Tablet 12/10/2023 Prov ider: Diagnosis: Last Documented On 4 2:44PM By Karen Ornelas ; [facility], [facility] Albuterol Sulfate 108 (90 Ba se) MCG/ACT Inhalation Aerosol Powder Breath Activated 06/15/2022 Provider: Diagnosis: Last Documented On 3 8:21AM By Merari Parson ; [facility], [facility] Cymbalta 20 MG Oral Capsule Delayed Release Particles 06/15/2022 Provider: Diagnosis: Last Documented On 3 8:21AM By Merari Parson ; [facility], [facility] Estradiol 0.1 MG/GM Vaginal Cream 06/15/2022 Provide r: Diagnosis: Last Documented On 3 9:04AM By Merari Parson ; [facility], [facility] Retin-A 0.1% External Cream 06/15/2022 Provider: Diagnosis: Last Documented On 3 9:03AM By Merari Parson ; [facility], [facility] Nystatin-Triamcinolone 231959-0.1 UNIT/GM-% External C ream 06/15/2022 Provider: Diagnosis: Last Documented On 3 9:02AM By Merari Parson ; [facility], [facility] Triamcinolone Acetonide 0.1% External Cream 06/15/2022 Provider: Diagnosis: Last Documented On 3 8:29AM By Merari Parson ; [facility], [facility] oxyCODONE HCl 10 MG Oral Tablet 06/15/2022 Provider: Diagnosis: Last Documented On 3 8:27AM By Merari Parson ; [facility], [facility] Losartan Potassium 50 MG Oral Tablet 06/15/2022 Prov ider: Diagnosis: Last Documented On 3 8:26AM By Merari Parson ; [facility], [facility] Fluticasone-Salmeterol 250-5 0 MCG/ACT Inhalation Aerosol Powder Breath Activated 06/15/2022 Provider: Diagnosis: Last Documented On 3 8:25AM By Merari Parson ; [facility], [facility] Diphenoxylate-Atropine 2.5-0.025 MG Oral Tablet 2022 Provider: Diagnosis: Last Documented On 3 8:22AM By Merari Parson ; [facility], [facility] Acyclovir 400 MG Oral Tablet 10/05/2020 Provider: Diagnosis: Last Documented On 1 3:19PM By Adele Trevino ; [facility], [facility] Past Medications on file oxyCODONE HCl 5 MG Oral Tablet 07/19/2022 - 07/29/2022 Provider: Jesus Zimmer MD Diagnosis: Take 1 tablet by mouth every 4-6 hrs for break through pain Last Documented On 3 11:00AM By Jesus Espinosa ; [facility], [facility] Meloxicam 15 MG Oral Tablet 07/03/2022 - 07/17/2022 Pr ovider: Jesus Espinosa MD Diagnosis: once a day Last Documented On 3 8:45AM By Barbara Correa ; [facility], [facility] Ondansetron HCl 4 MG Oral Tablet 06/30/2022 - 07/07/2022 Provider: Jesus Zimmer MD Diagnosis: 1 po q 6h prn nausea Last Documented On 3 1:35PM By Jesus Espinosa ; [facility], [facility] oxyCODONE HCl 5 MG Oral Tablet 06/30/2022 - 07/10/2022 Provider: Jesus Zimmer MD Diagnosis: Take 1 tablet by mouth every 4-6 hrs for break through pain Last Documented On 3 1:35PM By Jesus Espinosa ; [facility], [facility] Acetaminophen 500 MG Oral Tablet 06/30/2022 - 07/14/2022 Provider: Jesus Zimmer MD Diagnosis: Take 2 tablets by mouth every 8 hours Last Documented On 3 1:35PM By Jesus Espinosa ; [facility], [facility] Cefadroxil 500 MG Oral Capsule 06/30/2022 - 07/07/2022 Provider: Jesus Zimmer MD Diagnosis: Take 1 tablet by mouth every 12 hours for 7 days Last Documented On 3 1:35PM By Jesus Espinosa ; [facility], [facility] Aspirin EC 81 MG Oral Tablet Delayed Release 06/30/2022 - 08/11/2022 Provider: Jesus Espinosa MD Diagnosis: Take 1 tablet by mouth every 12 hours for 42 days post op Last Documented On 3 1:35PM By Jesus Espinosa ; [facility] Vitamin D3 50 MCG (1999 [place]) Oral Tablet 06/20/2022 - 07/20/2022 Provider: Diana ABDI Diagnosis: once a day Last Documented On 3 1:03PM By Diana Rosas ; [facility] cloNIDine HCl 0.1 MG Oral Tablet 10/05/2020 - 11/05/19 Provider: Diagnosis: Last Documented On 1 3:16PM By Adele Trevino ; [facility] Atorvastatin Calcium 20 MG O ral Tablet 10/05/2020 - 11/04/2020 Provider: MADI CHAPIN MD Diagnosis: Last Documented On 1 3:18PM By Adele Trevino ; [facility] Medications Administered Includes: Administered Medications from this encounter No Administered Medications Recorded Vital Signs Includes: Vital Signs from this encounter Vital Name 03/16/2023 10:32A Height (in) 61 Weight (lb) 145 Body Mass Index 27.4 Body Surface Area 1.6 Note: hdv Last Documented: On 03/16/2023 10:32A M ; [facility] Results Includes: Results [...] Documented On 3 11:26AM ; [facility] Tobacco non-user 02/17/2022 Last Documented On 3 10:32AM ; [facility] Caffeine use 10/05/2020 Last Documented On 3 10:32AM ; [facility] Exercising regularly 10/05/2020 Last Documented On 3 10:32AM ; [facility] No recent change in diet 10/05/2020 Last Documented On 3 10:32AM ; [facility] Not a current smoker. 10/05/2020 Last Documented On 3 10:32AM ; [facility] Not using alcohol 10/05/2020 Last Documented On 3 10:32AM ; [facility] Not using drugs 10/05/2020 Last Documented On 3 10:32AM ; [facility] Non-smoker 10/05/2020 Last Documented On 3 10:32AM ; [facility], [facility] Not a current smoker 05/29/2018 Last Documented On 3 10:32AM ; [facility] No tobacco use 05/29/2018 Last Documented On 3 10:32AM ; [facility], [facility] Smoking status : Former smoker 9 Last Documented On 3 10:32AM ; [facility], [facility] Procedures and Surgical History Includes: Procedures from this encounter Procedures Code Diagnosis Performing Provider Service L ocation Service Date use of tobacco assessment performed 1000F Last Documented On 3 10:32AM ; [facility], [facility] patient screened for future fall risk: documentation of any fall with injury in past year 1100F Last Documented On 3 10:32AM ; [facility], [facility] review of medications documented 1160F Last Documented On 3 10:32AM ; [facility], [facility] an X-ray was performed 64694 Last Documented On 3 10:33AM ; [facility], [facility] an MRI was performed [id number] Last Documented On 3 10:33AM ; [facility], [facility] Surgical History Last Updated Past Surgical History: 03/16/2023 Last Documented On 3 11:26AM ; [facility], [facility] Medical History Includes: Medical History addressed during this encounter Description Last Updated History of Anemia 03/16/2023 Last Documented On 3 11:26AM ; [facility] History of arthritis 03/16/2023 Last Documented On 3 11:26AM ; [facility], [facility] History of History of Blood Clots 2022 Last Documented On 3 11:26AM ; [facility] Anemia 10/05/2020 Last Documented On 3 10:32AM ; [facility] Arthritis 10/05/2020 Last Documented On 3 10:32AM ; [facility] History of Arthroscopy 10/05/2020 Last Documented On 3 10:32AM ; [facility], [facility] Recent immunization for flu 10/05/2020 Last Documented On 3 10:32AM ; [facility], [facility] Recent immunization for pneumococcal pne umonia 10/05/2020 Last Documented On 3 10:32AM ; [facility] Shoulder arthroplasty 10/05/2020 Last Documented On 3 10:32AM ; [facility], [facility] Total hip replacement 10/05/2020 Last Documented On 3 10:32AM ; [facility], [facility] Total knee arthroplasty 10/05/2020 Last Documented On 3 10:32AM ; [facility], [facility] arthroscopy ~total joint replacement ~hi gh cholesterol 05/29/2018 Last Documented On 3 10:32AM ; [facility], [facility] Arthritic joint problems 05/29/2018 Last Documented On 3 10:32AM ; [facility], [facility] History of depression 05/29/2018 Last Documented On 3 10:32AM ; [facility] History of hepatitis C 05/29/2018 Last Documented On 3 10:32AM ; [facility], [facility] Family History Includes: Family History addressed during this encounter Description Last Updated Family history of cancer 10/05/2020 Last Documented On 3 10:32AM ; [facility] Family history of osteoporosis 1 Last Documented On 3 10:32AM ; [facility] Family history of thromboembolic disease 05/29/2018 Last Documented On 3 10:32AM ; [facility] Review of Systems Includes: Review [...] Active Last Documented On 06/16/2024 12:48PM ; [facility] Note: joint pain- Major fluoroquinolones Allergy 09/04/2018 Ac tive Last Documented On 5 12:48PM ; [facility] Encounters Encounter Provider Location Date Check-In Time Check-Out Time Diagnosis Physician Specified Funmi Robles PA-C [facility] B 03/16/20 23 10:22AM 11:03AM Overweight Insurance Includes: Active Insurance Policies Plan Name Member ID Group # Subscriber Relationship Effect sherman Dates 1 - Medicare Part B [facility] [id number] Farrah Atkinson Self 4 - Unknown 2 - [facility] [id number] Farrah Atkinson Self 05/03/2019 - Unknown Clinical Notes Includes: Clinical Notes from this encounter * Progress note Date Encounter Last Documented by 03/16/2023 Physician Specified Last gilma farrell on 03/16/2023; 11:26 AM, Funmi Robles PA-C; [facility], [facility] Active Problems & [...] directed 0 days, 0 refills - Nystatin-Triamcinolone 243982-7.1 UNIT/GM-% External Cream take as directed 0 [...] Care Team - Chandra Leahy MD - DROP HAMMER OPERATOR HELPER
--- OUTSIDE RECORDS SUMMARY | 2025-02-19 23:39 | XMS_ITS | Clinical Summary ---
Author Organization [facility] Address [address] [place] [address] Care Team Providers Care Supervisor Computer Operations Name Role Phone Connor Gomez MD Primary Care Provider [phone] Allergies Active Allergy Reactions Criticality Noted Date [...] Daily. Active vitamin D (ERGOCALCIFEROL) 1.25 MG (38726 UT) capsule capsule Take 1 capsule by [...] Patient may need Pain Management referral. Discontinue [place] and use oxycodone 10mg q6h prn. 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 Patient unable to answer 01/26/2025 [facility] [place] of Occupat ional Health - Occupational Stress [...] things needed for daily living? No 01/26/2025 [facility] Utilities Answer Date Recorded In the past 12 months has [facility] electric, gas, oil, or water company threatened [...] Patient unable to answer 01/26/2025 Preferred Language Tanzanian 01/26/2025 Comments No Sex and Gender Information [...] this topic Medical Devices Implanted Type Area Research Engineer Device Identifier Shelf Expiration Date Model / Serial / Lot Cmt Bone Simplex/P Full Dose 10/Pk - [id number] Implanted:Qty : 1 on 07/18/2018 by Bautista Luis MD at [facility] Implant Right: Shoulder TRACY RUBEN 09/29/2020 [id number] / / [id number] Stem Hum [employer] [place] 6x60mm - [id number] Implanted:Qty : 1 on 07/18/2018 by Bautista Luis MD at [facility] Implant Right: Shoulder ARTHREX 08/30/2022 [id number] / / [id number] Alberto Vaultlock - [id number] Implanted:Qty : 1 on 07/18/2018 by Bautista Luis MD at [facility] Implant Right: Shoulder ARTHREX 12/30/2022 [id number] / / [id number] Hd Hum Univers2 Cocr 31o10bi - [id number] Implanted:Qty : 1 on 07/18/2018 by Bautista Luis MD at [facility] Implant Right: Shoulder ARTHREX 03/01/2022 [id number] / / [id number] Sut Tw 2/0 38in Wht/Blk - [id number] Implanted:Qty : 3 on 07/18/2018 by Bautista Luis MD at [facility] Implant Right: Shoulder ARTHREX [id number] / / Totl Arth Shldr S3 - [id number] Implanted:Qty : 1 on 07/18/2018 by Bautista Luis MD at [facility] Implant Right: Shoulder ARTHREX CAPTOTLSHLD [id number] / / Procedures Procedure Name Priority Date/Time [...] of2 resultswithin the time period is included. [facility] Onbase ECG ORDERABLES Final Result * Potassium (01/28/2025 9:51 PM EDT) Only the most recent of2 resultswithin the time period is included. Potassium 3.8 3.5 - 5.2 mmol/L 01/28/2025 10:10 PM EDT [facility] Blood Venipuncture / Unknown 01/28/2025 9:51 PM EDT 01/28/2025 9:57 PM EDT Jessica Valdovinos DO LAB BLOOD ORDERABLES F inal Result [facility]
[address] [place] [address], * (ABNORMAL) CBC (No Diff) (01/28/2025 10:34 AM EDT) Only the most recent of2 resultswithin the time period is included. WBC 12.20(H) 3.40 - 10.80 10*3/mm3 01/28/2025 11:45 AM EDT [facility] RBC 3.86 3.77 - 5.28 10*6/mm3 01/28/2025 11:45 AM EDT [facility] Hemoglobin 11.6(L) 12.0 - 15.9 g/dL 01/28/2025 11:45 AM EDT [facility] Hematocrit 35.5 34.0 - 46.6 % 01/28/2025 11:45 AM EDT [facility] MCV 92.0 79.0 - 97.0 fL 01/28/2025 11:45 AM EDT [facility] MCH 30.1 26.6 - 33.0 pg 01/28/2025 11:45 AM EDT [facility] MCHC 32.7 31.5 - 35.7 g/dL 01/28/2025 11:45 AM EDT [facility] RDW 13.5 12.3 - 15.4 % 01/28/2025 11:45 AM EDT [facility] RDW-SD 46.2 37.0 - 54.0 fl 01/28/2025 11:45 AM EDT [facility] MPV 9.6 6.0 - 12.0 fL 01/28/2025 11:45 AM EDT [facility] Platelets 301 140 - 450 10*3/mm3 01/28/2025 11:45 AM EDT [facility] Blood Venipuncture / Unknown 01/28/2025 10:34 AM EDT 01/28/2025 11:41 AM EDT Andrew Barkley MD LAB BLOOD ORDERABLES Final R esult [facility]
[address] [place] [address], * (ABNORMAL) Basic Metabolic Panel (01/28/2025 10:34 AM EDT) Only the most recent of2 resultswithin the time period is included. Glucose 117(H) 65 - 99 mg/dL 01/28/2025 12:14 PM EDT [facility] BUN 6.4(L) 8.0 - 23.0 mg/dL 01/28/2025 12:14 PM EDT [facility] Creatinine 0.85 0.57 - 1.00 mg/dL 01/28/2025 12:14 PM EDT [facility] Sodium 139 136 - 145 mmol/L 01/28/2025 12:14 PM EDT [facility] Potassium 3.3(L) 3.5 - 5.2 mmol/L 01/28/2025 12:14 PM EDT [facility] Chloride 103 98 - 107 mmol/L 01/28/2025 12:14 PM EDT [facility] CO2 20.6(L) 22.0 - 29.0 mmol/L 01/28/2025 12:14 PM EDT [facility] Calcium 8.8 8.6 - 10.5 mg/dL 01/28/2025 12:14 PM EDT [facility] BUN/Creatinine Ratio 7.5 7.0 - 25.0 01/28/2025 12:14 PM EDT [facility] Anion Gap 15.4(H) 5.0 - 15.0 mmol/L 01/28/2025 12:14 PM EDT [facility] eGFR 72.4 >60.0 mL/min/1.7 3 01/28/2025 12:14 PM EDT [facility] Blood Venipuncture / Unknown 01/28/2025 10:34 AM EDT 01/28/2025 11:41 AM EDT Narrative [facility] - 01/28/2025 12:14 PM EDT GFR [...] ORDERABLES Final R esult [facility]
[address] [place] [address], * MRI Brain With Contrast (01/27/2025 1:28 AM EDT) Anatomical Region Laterality Modality Head, Neck N/A Magnetic Resonan ce 01/27/2025 2:00 AM EDT Impressions 01/27/2025 2:05 AM EDT Impression: No pathologic contrast enhancement. 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 Electronically Signed: Jesus Peterson MD 01/27/2025 2:05 AM EDT Workstation ID: [id number] Narrative 01/27/2025 2:05 AM EDT MRI BRAIN [...] MD 01/27/2025 2:05 AM EDT Workstation ID: [id number] Adama Maher MD IMG MRI ORDERABLES Final Result * POC Glucose Once (01/26/2025 5:38 PM EDT) Only the most recent of4 resultswithin the time period is included. Glucose 91 70 - 130 mg/dL 01/26/2025 5:40 PM EDT [facility] Comment:Serial Number: [id number]: [id number] Amber Comment 1 Follow unit protocol 01/26/2025 5:40 PM EDT [facility] Blood 01/26/2025 5:38 PM EDT 01/26/2025 5:40 PM EDT us Andrew Barkley MD POINT OF CARE TEST ORDERABLE S Final Result [facility]
[address] [place] [address], * ECHO COMPLETE W/ DOPPLER AND COLOR [...] 01/26/2025 11:33 AM EDT [facility] Comment:Falsely depressed re sults may occur on samples drawn from patients receiving N-Acetylcysteine (NAC) or Metamizole. Blood Venipuncture / Unknown 01/26/2025 10:44 AM EDT 01/26/2025 11:00 AM EDT Maru Martinez APRN LAB BLOOD ORDERABLES Final Result Performing Organization Address City/[facility]/ZIP Co de Phone Number [facility]
[address] [phone] * (ABNORMAL) Hemoglobin A1c (01/26/2025 6:51 AM EDT) Hemoglobin A1C 5.67(H) 4.80 - 5.60 % 01/26/2025 8:56 AM EDT [facility] Blood Structure of right upper limb / Unknown Venipuncture / Unknown 01/26/2025 6:51 AM EDT 01/26/2025 7:01 AM EDT Narrative [facility] - 01/26/2025 8:56 AM EDT Hemoglobin A1C Ranges: Increased Risk for Diabetes 5.7% to 6.4% Diabetes >= 6.5% Diabetic Goal < 7.0% Rayshawn Hercules PA-C LAB BLOOD ORDERABLE S Final Result Performing Organization Address City/[facility]/ZIP Co de Phone Number [facility]
[address] [place] [address], * (ABNORMAL) Vancomycin, Random (01/26/2025 6:51 AM EDT) Vancomycin Random 42.10(HH) 5.00 - 40.00 mcg/mL 01/26/2025 7:53 AM EDT [facility] Blood Structure of right upper limb / Unknown Venipuncture / Unknown 01/26/2025 6:51 AM EDT 01/26/2025 7:01 AM EDT Narrative [facility] - 01/26/2025 7:53 AM EDT Therapeutic Ranges for Vancomycin Vancomycin Random 5.0-40.0 mcg/mL Vancomycin Trough 5.0-20.0 mcg/mL Vancomycin Peak 20.0-40.0 mcg/mL Aline Tavarez PharmD LAB BLOOD ORDERABLES Final R esult [facility]
[address] [place] [address], * EEG AWAKE OR ASLEEP PORTABLE (01/26/2025 6:30 AM EDT) Impressions NEUROLOGY - 01/26/2025 8:58 AM EDT Diffuse cerebral dysfunction of at least mild degree, nonspecific but most commonly seen due to toxic/metabolic cause No ongoing seizures are present This report is transcribed using the [employer] dictation system. Narrative NEUROLOGY - 01/26/2025 8:58 [...] 01/26/2025 3:57 AM EDT [facility] Troponin T Numeric Delta -1 ng/L 01/26/2025 3:57 AM EDT [facility] Troponin T % Delta -4 Abnormal if >/= 20% 01/26/2025 3:57 AM EDT [facility] Blood Line / Unknown 01/26/2025 3: 28 AM EDT 01/26/2025 3:37 AM EDT Narrative [facility] - 01/26/2025 3:57 AM EDT High [...] to an underlying chronic condition. Maru Martinez MESH CUTTER LAB BLOOD ORDERABLES Final Result [facility]
[address] [place] [address], * ECG 12 Lead QT Measurement (01/26/2025 3:10 AM EDT) [facility] QT Interval 340 ms ECG QTC [...] By: DARSHAN KHAN MD us Maru Martinez MESH CUTTER ECG ORDERABLES Final Resu lt ECG * (ABNORMAL) Urinalysis, Microscopic Only - Indwelling Urethral Catheter (01/26/2025 2:57 AM EDT) RBC, UA 6-10(A) None Seen, 0-2 /HPF 01/26/2025 3:25 AM EDT [facility] WBC, UA 11-20(A) None Seen, 0-2 /HPF 01/26/2025 3:25 AM EDT [facility] Bacteria, UA None Seen None Seen /HPF 01/26/2025 3:25 AM EDT [facility] Squamous Epithelial Cells, UA 0-2 None Seen, 0-2 /HPF 01/26/2025 3:25 AM EDT [facility] Hyaline Casts, UA None Seen None Seen /LPF 01/26/2025 3:25 AM EDT [facility] Methodology Automated Microscopy 01/26/2025 3:25 AM EDT [facility] Urine (Indwelling Urethral Catheter) Collection / Unknown 01/26/2025 2:57 AM EDT 01/26/2025 3:13 AM EDT us Maru Martinez MESH CUTTER URINE ORDERABLES Final Res ult [facility]
[address] [place] [address], [place] [phone] * (ABNORMAL) Urinalysis With Microscopic If Indicated (No Culture) - Indwelling Urethral Catheter (01/26/2025 2:57 AM EDT) Color, UA Yellow Yellow, Straw 01/26/2025 3:25 AM EDT [facility] Appearance, UA Clear Clear 01/26/2025 3:25 AM EDT [facility] pH, UA 5.5 5.0 - 8.0 01/26/2025 3:25 AM EDT [facility] Specific [place], UA >1.030(H) 1.005 - 1.030 01/26/2025 3:25 AM EDT [facility] Glucose, UA Negative Negative 01/26/2025 3:25 AM EDT [facility] Ketones, UA Negative Negative 01/26/2025 3:25 AM EDT [facility] Bilirubin, UA Negative Negative 01/26/2025 3:25 AM EDT [facility] Blood, UA Moderate (2+)(A) Negative 01/26/2025 3:25 AM EDT [facility] Protein, UA Trace(A) Negative 01/26/2025 3:25 AM EDT [facility] Leuk Esterase, UA Small (1+)(A) Negative 01/26/2025 3:25 AM EDT [facility] Nitrite, UA Negative Negative 01/26/2025 3:25 AM EDT [facility] Urobilinogen, UA 0.2 E.U./dL 0.2 - 1.0 E.U./dL 01/26/2025 3:25 AM EDT [facility] Urine (Indwelling Urethral Catheter) Collection / Unknown 01/26/2025 2:57 AM EDT 01/26/2025 3:13 AM EDT us Maru Martinez MESH CUTTER URINE ORDERABLES Final Res ult [facility]
[address] [place] [address], * (ABNORMAL) Urine Drug Screen - Indwelling Urethral Catheter (01/26/2025 2:57 AM EDT) [facility] Signature THC, Screen, Urine Negative Negative 2024 3:27 AM EDT [facility] Phencyclidine (PCP), Urine Negative Negative 01/26/2025 3:27 AM EDT [facility] Cocaine Screen, Urine Negative Negative 01/26/2025 3:27 AM EDT [facility] Methamphetamine, Ur Negative Negative 01/26/2025 3:27 AM EDT [facility] Opiate Screen Negative Negative 01/26/2025 3:27 AM EDT [facility] Amphetamine Screen, Urine Negative Negative 01/26/2025 3:27 AM EDT [facility] Benzodiazepine Screen, Urine Negative Negative 01/26/2025 3:27 AM EDT [facility] Tricyclic Antidepressants Screen Positive(A) Negative 01/26/2025 3:27 AM EDT [facility] Methadone Screen, Urine Negative Negative 01/26/2025 3:27 AM EDT [facility] Barbiturates Screen, Urine Negative Negative 01/26/2025 3:27 AM EDT [facility] Oxycodone Screen, Urine Positive(A) Negative 01/26/2025 3:27 AM EDT [facility] Buprenorphine, Screen, Urine Negative Negative 01/26/2025 3:27 AM EDT [facility] Urine (Indwelling Urethral Catheter) Collection / Unknown 01/26/2025 2:57 AM EDT 01/26/2025 3:13 AM EDT [facility] - 01/26/2025 3:27 AM EDT Cutoff [...] when unconfirmed results are used. Maru Martinez MESH CUTTER URINE ORDERABLES Final Res ult Performing Organization Address [facility] de Phone Number [facility]
[address] [place] [address], * Fentanyl, Urine - Indwelling Urethral Catheter (01/26/2025 2:57 AM EDT) Fentanyl, Urine Negative Negative 01/26/2025 3:40 AM EDT [facility] Urine (Indwelling Urethral Catheter) Collection / Unknown 01/26/2025 2:57 AM EDT 01/26/2025 3:13 AM EDT [facility] - 01/26/2025 3:40 AM EDT Negative [...] when unconfirmed results are used. Maru Martinez MESH CUTTER URINE ORDERABLES Final Res ult Performing Organization Address [facility] Co de Phone Number [facility]
[address] [place] [address], * LSAC Slide Creation (01/26/2025 2:09 AM EDT) Blood Line / Unknown 01/26/2025 2: 09 AM EDT 01/26/2025 2:20 AM EDT Maru Martinez APRN LAB BLOOD ORDER ONLY Final Result Performing Organization Address City/[facility]/ZIP Co de Phone Number [facility]
[address] [place] [address], * TSH Rfx On Abnormal To Free T4 (01/26/2025 2:09 AM EDT) TSH 1.430 0.270 - 4.200 uIU/mL 01/26/2025 2:50 AM EDT [facility] Blood Line / Unknown 01/26/2025 2: 09 AM EDT 01/26/2025 2:20 AM EDT Maru Martinez APRN LAB BLOOD ORDERABLES Final Result Performing Organization Address City/[facility]/ZIP Co de Phone Number [facility]
[address] [place] [address], * Procalcitonin (01/26/2025 2:09 AM EDT) Procalcitonin 0.15 0.00 - 0.25 ng/mL 01/26/2025 2:50 AM EDT [facility] Blood Line / Unknown 01/26/2025 2: 09 AM EDT 01/26/2025 2:20 AM EDT Narrative [facility] - 01/26/2025 2:50 AM EDT As [...] Day 4 values are available. Refer to http://www.vaqplr-hau-ouwuofdwii.com Change in PCT <=80% A decrease of [...] severe sepsis or septic shock. Maru Martinez MESH CUTTER LAB BLOOD ORDERABLES Final Result [facility]
[address] [place] [address], * (ABNORMAL) CBC Auto Differential (01/26/2025 2:09 AM EDT) [facility] Signature WBC 18.88(H) 3.40 - 10.80 10*3/mm3 01/26/2025 2:48 AM EDT [facility] RBC 3.98 3.77 - 5.28 10*6/mm3 01/26/2025 2:48 AM EDT [facility] Hemoglobin 11.6(L) 12.0 - 15.9 g/dL 01/26/2025 2:48 AM EDT [facility] Hematocrit 35.6 34.0 - 46.6 % 01/26/2025 2:48 AM EDT [facility] MCV 89.4 79.0 - 97.0 fL 01/26/2025 2:48 AM EDT [facility] MCH 29.1 26.6 - 33.0 pg 01/26/2025 2:48 AM EDT [facility] MCHC 32.6 31.5 - 35.7 g/dL 01/26/2025 2:48 AM EDT [facility] RDW 13.6 12.3 - 15.4 % 01/26/2025 2:48 AM EDT [facility] RDW-SD 45.1 37.0 - 54.0 fl 01/26/2025 2:48 AM EDT [facility] MPV 9.4 6.0 - 12.0 fL 01/26/2025 2:48 AM EDT [facility] Platelets 411 140 - 450 10*3/mm3 01/26/2025 2:48 AM EDT [facility] Blood Line / Unknown 01/26/2025 2: 09 AM EDT 01/26/2025 2:20 AM EDT Maru Martinez MESH CUTTER LAB BLOOD ORDERABLES Final Result [facility]
[address] [place] [address], * (ABNORMAL) High Sensitivity Troponin T (01/26/2025 2:09 AM EDT) HS Troponin T 23(H) <14 ng/L 01/26/2025 2:50 AM EDT [facility] Blood Line / Unknown 01/26/2025 2: 09 AM EDT 01/26/2025 2:20 AM EDT Narrative [facility] - 01/26/2025 2:50 AM EDT High [...] to an underlying chronic condition. Maru Martinez MESH CUTTER LAB BLOOD ORDERABLES Final Result [facility]
[address] [place] [address], * (ABNORMAL) Manual Differential (01/26/2025 2:09 AM EDT) Neutrophil % 81.0(H) 42.7 - 76.0 % 01/26/2025 2:48 AM EDT [facility] Lymphocyte % 9.0(L) 19.6 - 45.3 % 01/26/2025 2:48 AM EDT [facility] Monocyte % 3.0(L) 5.0 - 12.0 % 01/26/2025 2:48 AM EDT [facility] Eosinophil % 0.0(L) 0.3 - 6.2 % 01/26/2025 2:48 AM EDT [facility] Basophil % 0.0 0.0 - 1.5 % 01/26/2025 2:48 AM EDT [facility] Bands % 5.0 0.0 - 5.0 % 01/26/2025 2:48 AM EDT [facility] Atypical Lymphocyte % 2.0 0.0 - 5.0 % 01/26/2025 2:48 AM EDT [facility] Neutrophils Absolute 16.24(H) 1.70 - 7.00 10*3/mm3 01/26/2025 2:48 AM EDT [facility] Lymphocytes Absolute 2.08 0.70 - 3.10 10*3/mm3 01/26/2025 2:48 AM EDT [facility] Monocytes Absolute 0.57 0.10 - 0.90 10*3/mm3 01/26/2025 2:48 AM EDT [facility] Eosinophils Absolute 0.00 0.00 - 0.40 10*3/mm3 01/26/2025 2:48 AM EDT [facility] Basophils Absolute 0.00 0.00 - 0.20 10*3/mm3 01/26/2025 2:48 AM EDT [facility] RBC Morphology Normal Normal 01/26/2025 2:48 AM EDT [facility] WBC Morphology Normal Normal 01/26/2025 2:48 AM EDT [facility] Platelet Morphology Normal Normal 01/26/2025 2:48 AM EDT [facility] Blood Line / Unknown 01/26/2025 2: 09 AM EDT 01/26/2025 2:20 AM EDT Maru Martinez APRN LAB BLOOD ORDERABLES Final Result Performing Organization Address [facility] Co de Phone Number [facility]
[address] [place] [address], * aPTT (01/26/2025 2:09 AM EDT) PTT 26.2 22.0 - 39.0 seconds 01/26/2025 2:56 AM EDT [facility] Blood Line / Unknown 01/26/2025 2: 09 AM EDT 01/26/2025 2:20 AM EDT Narrative [facility] - 01/26/2025 2:56 AM EDT PTT = The equivalent PTT values for the therapeutic range of heparin levels at 0.3 to 0.5 U/ml are 60 to 70 seconds. Maru Martinez APRN LAB BLOOD ORDERABLES Final Result Performing Organization Address City/[facility]/ZIP Co de Phone Number [facility]
[address] [place] [address], * Protime-INR (01/26/2025 2:09 AM EDT) Protime 13.9 12.2 - 15.3 Seconds 01/26/2025 2:56 AM EDT [facility] INR 1.01 0.89 - 1.12 01/26/2025 2:56 AM EDT [facility] Blood Line / Unknown 01/26/2025 2: 09 AM EDT 01/26/2025 2:20 AM EDT Maru R Blamer MESH CUTTER LAB BLOOD ORDERABLES Final Result [facility]
[address] [place] [address], * Phosphorus (01/26/2025 2:09 AM EDT) Phosphorus 3.6 2.5 - 4.5 mg/dL 01/26/2025 2:50 AM EDT [facility] Blood Line / Unknown 01/26/2025 2: 09 AM EDT 01/26/2025 2:20 AM EDT Maru R Nandomer MESH CUTTER LAB BLOOD ORDERABLES Final Result Performing Organization Address City/[facility]/ZIP Co de Phone Number [facility]
[address] [place] [address], [place] [phone] * Magnesium (01/26/2025 2:09 AM EDT) Magnesium 2.1 1.6 - 2.4 mg/dL 01/26/2025 2:50 AM EDT [facility] Blood Line / Unknown 01/26/2025 2: 09 AM EDT 01/26/2025 2:20 AM EDT Maru R Blamer MESH CUTTER LAB BLOOD ORDERABLES Final Result Performing Organization Address City/[facility]/ZIP Co de Phone Number [facility]
[address] [place] [address], [place] [phone] * Lipase (01/26/2025 2:09 AM EDT) Lipase 20 13 - 60 U/L 01/26/2025 2:50 AM EDT [facility] Blood Line / Unknown 01/26/2025 2: 09 AM EDT 01/26/2025 2:20 AM EDT Maru Martinez MESH CUTTER LAB BLOOD ORDERABLES Final Result Performing Organization Address [facility]/ZIP Co de Phone Number [facility]
[address] [place] [address], * (ABNORMAL) Lactic Acid, Plasma (01/26/2025 2:09 AM EDT) Lactate 2.7(HH) 0.5 - 2.0 mmol/L 01/26/2025 2:45 AM EDT [facility] Comment:Falsely depressed re sults may occur on samples drawn from patients receiving N-Acetylcysteine (NAC) or Metamizole. Blood Line / Unknown 01/26/2025 2: 09 AM EDT 01/26/2025 2:20 AM EDT Maru Martinez MESH CUTTER LAB BLOOD ORDERABLES Final Result Performing Organization Address [facility]/ZIP Co de Phone Number [facility]
[address] [place] [address], [place] [phone] * (ABNORMAL) CK (01/26/2025 2:09 AM EDT) Creatine Kinase 206(H) 20 - 180 U/L 01/26/2025 2:50 AM EDT [facility] Blood Line / Unknown 01/26/2025 2: 09 AM EDT 01/26/2025 2:20 AM EDT Maru Martinez MESH CUTTER LAB BLOOD ORDERABLES Final Result Performing Organization Address City/[facility]/ZIP Co de Phone Number [facility]
[address] [place] [address], * Calcium, Ionized (01/26/2025 2:09 AM EDT) Ionized Calcium 1.15 1.15 - 1.30 mmol/L 01/26/2025 2:22 AM EDT [facility] Blood Line / Unknown 01/26/2025 2: 09 AM EDT 01/26/2025 2:20 AM EDT Maru Martinez APRN LAB BLOOD ORDERABLES Final Result Performing Organization Address City/[facility] Co de Phone Number [facility]
[address] [place] [address], * (ABNORMAL) Lipid Panel (01/26/2025 2:09 AM EDT) Total Cholesterol 209(H) 0 - 200 mg/dL 01/26/2025 2:50 AM EDT [facility] Triglycerides 149 0 - 150 mg/dL 01/26/2025 2:50 AM EDT [facility] HDL Cholesterol 70(H) 40 - 60 mg/dL 01/26/2025 2:50 AM EDT [facility] LDL Cholesterol 113(H) 0 - 100 mg/dL 01/26/2025 2:50 AM EDT [facility] VLDL Cholesterol 26 5 - 40 mg/dL 01/26/2025 2:50 AM EDT [facility] LDL/HDL Ratio 1.56 01/26/2025 2:50 AM EDT [facility] Blood Line / Unknown 01/26/2025 2: 09 AM EDT 01/26/2025 2:20 AM EDT Narrative [facility] - 01/26/2025 2:50 AM EDT Cholesterol [...] using the NIH LDL-C calculation. Maru Martinez MESH CUTTER LAB BLOOD ORDERABLES Final Result [facility]
[address] [place] [address], * (ABNORMAL) Comprehensive Metabolic Panel (01/26/2025 2:09 AM EDT) [facility] Signature Glucose 154(H) 65 - 99 mg/dL 01/26/2025 2:50 AM EDT [facility] BUN 20.1 8.0 - 23.0 mg/dL 01/26/2025 2:50 AM EDT [facility] Creatinine 1.30(H) 0.57 - 1.00 mg/dL 01/26/2025 2:50 AM EDT [facility] Sodium 142 136 - 145 mmol/L 01/26/2025 2:50 AM EDT [facility] Potassium 3.9 3.5 - 5.2 mmol/L 01/26/2025 2:50 AM EDT [facility] Chloride 107 98 - 107 mmol/L 01/26/2025 2:50 AM EDT [facility] CO2 21.1(L) 22.0 - 29.0 mmol/L 01/26/2025 2:50 AM EDT [facility] Calcium 9.0 8.6 - 10.5 mg/dL 01/26/2025 2:50 AM EDT [facility] Total Protein 6.9 6.0 - 8.5 g/dL 01/26/2025 2:50 AM EDT [facility] Albumin 4.0 3.5 - 5.2 g/dL 01/26/2025 2:50 AM EDT [facility] ALT (SGPT) 19 1 - 33 U/L 01/26/2025 2:50 AM EDT [facility] AST (SGOT) 30 1 - 32 U/L 01/26/2025 2:50 AM EDT [facility] Alkaline Phosphatase 120(H) 39 - 117 U/L 01/26/2025 2:50 AM EDT [facility] Total Bilirubin 0.4 0.0 - 1.2 mg/dL 01/26/2025 2:50 AM EDT [facility] Globulin 2.9 gm/dL 01/26/2025 2:50 AM T [facility] Comment:Calculated Result A/G Ratio 1.4 g/dL 01/26/2025 2:50 AM [facility] BUN/Creatinine Ratio 15.5 7.0 - 25.0 01/26/2025 2:50 AM T [facility] Anion Gap 13.9 5.0 - 15.0 mmol/L 01/26/2025 2:50 AM [facility] eGFR 43.5(L) >60.0 mL/min/1.7 3 01/26/2025 2:50 AM [facility] Blood Line / Unknown 01/26/2025 2: 09 AM EDT 01/26/2025 2:20 AM EDT [facility] - 01/26/2025 2:50 AM EDT GFR [...] ORDERABLES Final Result Performing Organization Address [facility] Co de Phone Number [facility]
[address] [place] [address], * Blood Culture - Blood, Blood, Port (01/26/2025 2:00 AM EDT) Only the most recent of2 resultswithin the time period is included. Blood Culture No growth at 5 days 02/04/2025 12:48 PM EST [facility] Blood (Blood, Port) Port / Unknown 01/26/2025 2:00 AM EDT 01/26/2025 3:10 AM EDT Maru Martinez APRN MICROBIOLOGY - GENERAL ORD ERABLES Edited Result - Final Performing Organization Address [facility] Co de Phone Number [facility]
[address] [place] [address], * CT Angiogram Head w AI Analysis [...] MD 01/26/2025 1:54 AM EDT Workstation ID: [id number] Narrative 01/26/2025 1:[address] ANGIOGRAM [...] MD 01/26/2025 1:54 AM EDT Workstation ID: [id number] us Maru Martinez MESH CUTTER IMG CT ORDERABLES Final Re sult * [...] MD 01/26/2025 1:54 AM EDT Workstation ID: [id number] Narrative 01/26/2025 1:[address] ANGIOGRAM [...] MD 01/26/2025 1:54 AM EDT Workstation ID: [id number] us Maru Martinez MESH CUTTER IMG CT ORDERABLES Final Re sult * CT Head Without Contrast (01/26/2025 1:31 AM EDT) Anatomical Region Laterality Modality Head N/A Computed Tomogra phy 01/26/2025 1:45 AM EDT Impressions 01/26/2025 1:46 AM EDT Impression: No acute intracranial abnormality. Electronically Signed: Jesus Peterson MD 01/26/2025 1:46 AM EDT Workstation ID: [id number] Narrative 01/26/2025 1:[address] HEAD [...] MD 01/26/2025 1:46 AM EDT Workstation ID: [id number] Maru Martinez MESH CUTTER IMG CT ORDERABLES Final Re sult * IMAGING SCANNED (01/26/2025) Only the most recent of7 resultswithin the time period is included. Anatomical Region Laterality Modality Radiographic Tammy ging Result [facility] IMG DIAGNOSTIC IMAGING ORDERA BLES Final Result * LABS SCANNED (01/26/2025) Result [facility] LAB BLOOD ORDERABLES Final Re sult * [...] developed and its performance characteristics determined by [facility]. It has not been cleared or approved by the U.S. Food and Drug Administration. The FDA has determined that such clearance or approval is not necessary. This test is used for clinical purposes. It should not be regarded as investigational or for research. Blood 12/15/2021 11:5 5 AM EDT 12/16/2021 Narrative [facility] ([facility]) - 12/21/2021 8:08 PM EDT Performed at: [address] [place] [address] [id number] Security Shift Supervisor: Genna Davenport MD, Phone: [phone] Patient Fasting: Y Connor Nunez MD LAB BLOOD ORDERABLES Fin al Result [facility] ([facility]) [address] [place] [address], [place] [phone] [facility] [address] [place] [address], [place] [phone] * SCANNED - MAMMO (08/23/2021) Anatomical Region Laterality Modality Other Connor Nunez MD CHART REVIEW TABS Fin al Result from Last 3 Months or Most Recently Relevant to Health Maintenance Insurance MEDICARE A & B Member Subscriber Plan / Payer (Ef fective 2013-Present) Name:Farrah Atkinson Member ID:[id number] Relation to Subscriber:Self Name:Farrah Atkinson Subscriber ID:[id number] Payer ID:[id number] Group ID:Not on file Type:Not on file Address: [facility] [id number] MEDICARE SUPPLEMENT Advance Directives * CPR [...] Of Support Discussed With: Patient Care Teams Supervisor Computer Operations Relationship Specialty Start Date End Date Connor Gomez MD [address] [place] [address] PCP - General Family Medicine 01/26/25
[2025-02-19 23:40] VITALS: BP 100/50; BP 101/60; BP 110/63; PULSE 71; PULSE 72; PULSE 77
--- OUTSIDE RECORDS SUMMARY | 2025-02-19 23:40 | XMS_ITS | Encounter Summary ---
Author Organization [employer] ([place], [place], [place], [place], [place]) Address [address] [place] [address] Care Team Providers Care General Pediatrician Name Role Phone Sj, Provider Not In The System Primary Care Provider Unavailable Encounter Details Date Type Department Care Team (Late st Contact Info) Description 04/28/2019 Transcribed Document [facility] Family Medicine [facility] [address] ProviderJean-Claude MD [address], [place] [id number] Social History Tobacco Use Types Packs/Day Years Used Date Smoking Tobacco: Never Assessed Comments Unknown Sex and Gender Information Value Date Recorded Sex Assigned at Not on file Legal Sex Female 5:42 PM CDT Gender Identity Not on file Sexual Orientation Not on file documented as of this encounter Miscellaneous Notes * Cerner Conversion Note - Historical ProviderMD - 04/28/2019 9:04 AM PROJECT ADMIN DATE OF PROCEDURE: 04/28/2019 SURGEON: Timothy Foster [...] to the recovery room in satisfactory condition. /[id number] MD MICHAEL Trujillo/JAZMYN / MICHAEL / MODL /[id number] documented in this encounter Plan of Treatment Not on file documented as of this encounter Visit Diagnoses Not on filedocumented in this encounter Care Teams General Pediatrician Relationship Specialty Start Date End Date Leslee, Provider Not In The System, [place] [address] PCP - General 04/16/23 documented as of this encounter
--- OUTSIDE RECORDS SUMMARY | 2025-02-19 23:40 | XMS_ITS ---
Author Organization [facility] Address [address] [id number] Care Team Providers Care Child Daycare Worker Name Role Phone Timothy Granda DO Primary Care Provider [phone] Hepatitis C Program Status:Paused (Paused) Start date:08/03/2022 Enrollment date:08/03/2022 Enrollment reason:HCV Continued Care and Services Coordination
--- OUTSIDE RECORDS SUMMARY | 2025-02-19 23:40 | XMS_ITS | Encounter Summary ---
Author Organization [employer] ([place], [place], [place], [place], [place]) Address [address] [place] [address] Care Team Providers Care Crown And Bridge Technician Name Role Phone [facility], Provider Not In The System Primary Care Provider Unavailable Encounter Details Date Type Department Care Team (Late st Contact Info) Description 04/28/2019 Transcribed Document [facility] Family Medicine [facility] [place] [address] ProviderJean-Claude MD [address], [place] [phone] Social History Tobacco Use Types Packs/Day Years Used Date Smoking Tobacco: Never Assessed Comments Unknown Sex and Gender Information Value Date Recorded Sex Assigned at Not on file Legal Sex Female 5:42 PM CDT Gender Identity Not on file Sexual Orientation Not on file documented as of this encounter Miscellaneous Notes * Cerner Conversion Note - Historical ProviderMD - 04/28/2019 8:05 AM COMP FIELD CASE MANAGER ADI Main OR PACU Summary Primary Physician: MADISON OSPINA MD-ORT Finalized Date/Time: 04/28/19 09:40:55 Pt. Name: MOISE ATKINSON/Sex: 1950 Female Med Rec #: [id number] Physician: MADISON OSPINA MD-ORT Financial #: [id number] Pt. Type: O Room/Bed: Admit/Disch: 04/28/19 05:30:00 - Institution: [facility] OR PACU Case Times Entry 1 In PACU I 04/28/19 08:38:00 Ready for PACU 04/28/19 09:33:00 Discharge Discharge from PACU 04/28/19 09:33:00 I Last Modified By: Eduarda Patel Rn Patient Care Bedside 04/28/19 09:40:12 [facility] Main OR PACU Case Times Audit 04/28/19 09:40:12 Botany Teacher: SADE Modifier: SADE <+> 1 Ready for PACU Discharge <+> 1 Discharge from PACU I Finalized By: Eduarda Patel Rn Patient Care Bedside Document Signatures Signed By: Eduarda Patel Rn Patient Care Bedside 04/28/19 09:40 documented in this encounter Plan of Treatment Not on file documented as of this encounter Visit Diagnoses Not on filedocumented in this encounter Care Teams Crown And Bridge Technician Relationship Specialty Start Date End Date [facility], Provider Not In The System, [place] [address] PCP - General 04/16/23 documented as of this encounter
--- OUTSIDE RECORDS SUMMARY | 2025-02-19 23:40 | XMS_ITS | Encounter Summary ---
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 may advance diet as tolerated. May take Ocean Gate 10-325mg 1 tablet by mouth every 4-6 [...] EST Comments Appointment has been made Where: [address] [place] [place] [address]- Medications What How Much When Instructions Next [...] activities are safe for you. ??? Take wdfj-jvd-unseprx and prescription medicines only as told by [...] 06/25/2001 Document Revised: 11/02/2017 Document Reviewed: 11/02/2017 [employer] Patient Education ?? 2019 [employer] Knee Arthroscopy, Care After Refer to [...] activities are safe for you. ??? Perform kigdb-dh-gfddxy exercises only as directed by your health [...] 10/06/2005 Document Revised: 08/18/2016 Document Reviewed: 03/15/2015 [employer] Interactive Patient Education ?? 2018 [employer]. acetaminophen and hydrocodone (a SEET a MIN oh fen and ladonna droe KOE done) Hycet, Lorcet, Ocean Gate, Verdrocet, Vicodin, Xodol, Zamicet What is the [...] may report side effects to FDA at 4-202-ZDS-7782. What other drugs will affect acetaminophen and [...] affect acetaminophen and hydrocodone, including prescription and yqik-dwl-ikyccvi medicines, vitamins, and herbal products. Not all [...] to ensure that the information provided by [employer]') is accurate, up-to-date, and complete, but no guarantee is made to that effect. Drug information contained herein may be time sensitive. [employer] information has been compiled for use by healthcare practitioners and consumers in the [place] and therefore [employer] does not warrant that uses outside of the [place] are appropriate, unless specifically indicated otherwise. [employer] drug information does not endorse drugs, diagnose patients or recommend therapy. [employer] drug information is an informational resource [...] effective or appropriate for any given patient. [employer] does not assume any responsibility for any aspect of healthcare administered with the aid of information [employer] provides. The information contained herein is not intended to cover all possible uses, directions, precautions, warnings, drug interactions, allergic reactions, or adverse effects. If you have questions about the drugs you are taking, check with your doctor, nurse or pharmacist. Copyright 2378-8722 [employer] Version: 15.02. Revision Date: 02/04/2018. Emergency Awareness [...] Assistance with quitting is available by contacting 5-264-AXTP-NOW. This is a free resource providing counseling, [...] was given the opportunity to ask questions. Patient/Postdoctoral Scholar Name: Patient/Postdoctoral Scholar Signature: Relationship to Patient: Clinician/Hospital Postdoctoral Scholar Signature: Date: documented in this encounter Plan of Treatment Not on file documented as of this encounter Visit Diagnoses Not on filedocumented in this encounter Care Teams Paint Supervisor Relationship Specialty Start Date End Date [facility], Provider Not In The System, [place] [address] PCP - General 04/16/23 documented as of this encounter
--- OUTSIDE RECORDS SUMMARY | 2025-02-19 23:40 | XMS_ITS | Clinical Summary ---
Author Organization [facility] , [facility] Address [address] [place] [address] Phone Care Team Providers Care Property Administrator Name Role Phone Tosin VARGAS, Chandra Flores Unavailable [phone] Chel VARGAS, Davidson Unavailable [phone] Timothy Granda Primary Care Provider Unavailabl e Reason for Visit and Chief Complaint The Chief Complaint is: Left shoulder pain Problems Includes: Problems addressed during this encounter and other active Problems All Visits Onset Date Resolved Date Provider Condition S tatus Joint Pain Shoulder Left 03/16/2023 Funmi Robles PA-C Active Last Documented On 3 10:30AM ; [facility] Joint Pain Left Knee 03/31/2022 Jesus giles MD Active Last Documented On 2 10:01AM ; [facility] Joint Pain Right Knee 02/12/2019 Timothy dye MD Active Last Documented On 9 10:35AM ; [facility] Joint Pain Hip Right 02/12/2019 Timothy Foster MD Active Last Documented On 9 10:35AM ; [facility] Joint Pain Shoulder 05/29/2018 Bautista christie MD Active Last Documented On 9 10:31AM ; [facility] Plan of Treatment Fall Risk [...] - Last Documented On 05/01/2023 3:50PM ; [facility], [facility] This is a very complex situation [...] - Last Documented On 05/01/2023 3:50PM ; [facility], [facility] Instructions to patient Lose weight Last Documented On 2:05PM ; [facility] Assessments Includes: Assessments from this encounter Findings - Overweight - Last Documented On 05/01/2023 3:50PM ; [facility] Status post left total shoulder arthroplasty done at an outside institution over a decade ago with signs and symptoms consistent with 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 Patient has severe pain and significant loss of function despite modification of activities utilization of anti-inflammatories. - Last Documented On 05/01/2023 3:50PM ; [facility] She is also status post a right total shoulder replacement done by me several years ago which seems to be per her report functioning well. - Last Documented On 05/01/2023 3:50PM ; [facility] Instructions Includes: Instructions from this encounter Instructions to patient Lose weight Last Documented On 4 2:05PM ; [facility] Medical Equipment - Implanted Devices Includes: Current Devices No Medical Equipment Recorded Medications Includes: Medications discussed during this encounter and other current Medications Current Medications (continue as prescribed) Acyclovir 400 MG Oral Tablet 01/27/2024 Provider: Diagnosis: Last Documented On 4 2:44PM By Karen Ornelas ; [facility], [facility] oxyCODONE HCl 10 MG Oral Tablet 01/22/2024 Provider: Diagnosis: Last Documented On 4 2:44PM By Karen Ornelas ; [facility], [facility] Dicyclomine HCl 10 MG Oral Capsule 01/22/2024 Provid er: CASTILLO ESPINO II, MD Diagnosis: Last Documented On 4 2:44PM By Karen AMBRIZ [facility], [facility] tiZANidine HCl 4 MG Oral Tablet 01/18/2024 Provider: Diagnosis: Last Documented On 4 2:44PM By Karen AMBRIZ [facility], [facility] Sulfamethoxazole-Trimethoprim 400-80 MG Oral Tablet Provider: Diagnosis: Last Documented On 4 2:44PM By Karen AMBRIZ [facility], [facility] DULoxetine HCl 60 MG Oral Capsule Delayed Releas e Particles 01/18/2024 Provider: Diagnosis: Last Documented On 4 2:44PM By Karen Ornelas ; [facility], [facility] HYDROmorphone HCl 4 MG Oral Tablet 01/08/2024 Provid er: Diagnosis: Last Documented On 4 2:44PM By Karen Ornelas ; [facility], [facility] Fluticasone-Salmeterol 100-5 0 MCG/ACT Inhalation Aerosol Powder Breath Activated 01/08/2024 Provider: Diagnosis: Last Documented On 4 2:44PM By Karen Ornelas ; [facility] Atorvastatin Calcium 40 MG Oral Tablet 01/08/2024 Pr ovider: Diagnosis: Last Documented On 4 2:44PM By Karen Ornelas ; [facility], [facility] Levothyroxine Sodium 25 MCG Oral Tablet 12/31/2023 P rodennisder: Diagnosis: Last Documented On 4 2:44PM By Karen Ornelas ; [facility], [facility] Eliquis 5 MG Oral Tablet 12/31/2023 Provider: Diagnosis: Last Documented On 4 2:44PM By Karen Ornelas ; [facility], [facility] Atorvastatin Calcium 20 MG Oral Tablet 12/31/2023 Pr ovider: Diagnosis: Last Documented On 4 2:44PM By Karen Ornelas ; [facility], [facility] amLODIPine Besylate 5 MG Oral Tablet 12/10/2023 Prov ider: Diagnosis: Last Documented On 4 2:44PM By Karen Ornelas ; [facility], [facility] Albuterol Sulfate 108 (90 Ba se) MCG/ACT Inhalation Aerosol Powder Breath Activated 06/15/2022 Provider: Diagnosis: Last Documented On 3 8:21AM By Merari Parson ; [facility], [facility] Cymbalta 20 MG Oral Capsule Delayed Release Particles 06/15/2022 Provider: Diagnosis: Last Documented On 3 8:21AM By Merari Parson ; [facility], [facility] Estradiol 0.1 MG/GM Vaginal Cream 06/15/2022 Provide r: Diagnosis: Last Documented On 3 9:04AM By Merari Parson ; [facility], [facility] Retin-A 0.1% External Cream 06/15/2022 Provider: Diagnosis: Last Documented On 3 9:03AM By Merari Parson ; [facility], [facility] Nystatin-Triamcinolone 546322-9.1 UNIT/GM-% External C ream 06/15/2022 Provider: Diagnosis: Last Documented On 3 9:02AM By Merari Parson ; [facility], [facility] Triamcinolone Acetonide 0.1% External Cream 06/15/2022 Provider: Diagnosis: Last Documented On 3 8:29AM By Merari Parson ; [facility], [facility] oxyCODONE HCl 10 MG Oral Tablet 06/15/2022 Provider: Diagnosis: Last Documented On 3 8:27AM By Merari Parson ; [facility], [facility] Losartan Potassium 50 MG Oral Tablet 06/15/2022 Prov ider: Diagnosis: Last Documented On 3 8:26AM By Merari Parson ; [facility], [facility] Fluticasone-Salmeterol 250-5 0 MCG/ACT Inhalation Aerosol Powder Breath Activated 06/15/2022 Provider: Diagnosis: Last Documented On 3 8:25AM By Merari Parson ; [facility], [facility] Diphenoxylate-Atropine 2.5-0.025 MG Oral Tablet 2022 Provider: Diagnosis: Last Documented On 3 8:22AM By Merari Parson ; [facility], [facility] Acyclovir 400 MG Oral Tablet 10/05/2020 Provider: Diagnosis: Last Documented On 1 3:19PM By Adele Trevino ; [facility], [facility] Past Medications on file oxyCODONE HCl 5 MG Oral Tablet 07/19/2022 - 07/29/2022 Provider: Jesus Zimmer MD Diagnosis: Take 1 tablet by mouth every 4-6 hrs for break through pain Last Documented On 3 11:00AM By Jesus Espinosa ; [facility], [facility] Meloxicam 15 MG Oral Tablet 07/03/2022 - 07/17/2022 Pr ovider: Jesus Espinosa MD Diagnosis: once a day Last Documented On 3 8:45AM By Barbara Correa ; [facility], [facility] Ondansetron HCl 4 MG Oral Tablet 06/30/2022 - 07/07/2022 Provider: Jesus Zimmer MD Diagnosis: 1 po q 6h prn nausea Last Documented On 3 1:35PM By Jesus Espinosa ; [facility], [facility] oxyCODONE HCl 5 MG Oral Tablet 06/30/2022 - 07/10/2022 Provider: Jesus Zimmer MD Diagnosis: Take 1 tablet by mouth every 4-6 hrs for break through pain Last Documented On 3 1:35PM By Jesus Espinosa ; [facility], [facility] Acetaminophen 500 MG Oral Tablet 06/30/2022 - 07/14/2022 Provider: Jesus Zimmer MD Diagnosis: Take 2 tablets by mouth every 8 hours Last Documented On 3 1:35PM By Jesus Espinosa ; [facility], [facility] Cefadroxil 500 MG Oral Capsule 06/30/2022 - 07/07/2022 Provider: Jesus Zimmer MD Diagnosis: Take 1 tablet by mouth every 12 hours for 7 days Last Documented On 3 1:35PM By Jesus Espinosa ; [facility], [facility] Aspirin EC 81 MG Oral Tablet Delayed Release 06/30/2022 - 08/11/2022 Provider: Jesus Espinosa MD Diagnosis: Take 1 tablet by mouth every 12 hours for 42 days post op Last Documented On 3 1:35PM By Jesus Espinosa ; [facility], [facility] Vitamin D3 50 MCG (1999 [place]) Oral Tablet 06/20/2022 - 07/20/2022 Provider: Diana ABDI Diagnosis: once a day Last Documented On 3 1:03PM By Diana Rosas ; [facility], [facility] cloNIDine HCl 0.1 MG Oral Tablet 10/05/2020 - 11/05/19 Provider: Diagnosis: Last Documented On 1 3:16PM By Adele AMBRIZ [facility], [facility] Atorvastatin Calcium 20 MG O ral Tablet 10/05/2020 - 11/04/2020 Provider: MADI CHAPIN MD Diagnosis: Last Documented On 1 3:18PM By Adele AMBRIZ [facility], [facility] Medications Administered Includes: Administered Medications from this encounter No Administered Medications Recorded Vital Signs Includes: Vital Signs from this encounter Vital Name 04/30/2023 02:23P Height (in) 62 Weight (lb) 165 Body Mass Index 30.2 Body Surface Area 1.8 Note: bdf Last Documented: On 04/30/2023 2:23PM ; [facility], [facility] Results Includes: Results discussed during this [...] Documented On 4 2:05PM ; [facility] Not a current smoker. 01/30/2024 Last Documented On 4 2:05PM ; [facility], [facility] Tobacco non-user 02/17/2022 Last Documented On 4 2:05PM ; [facility], [facility] Caffeine use 10/05/2020 Last Documented On 4 2:05PM ; [facility], [facility] Exercising regularly 10/05/2020 Last Documented On 4 2:05PM ; [facility], [facility] No recent change in diet 10/05/2020 Last Documented On 4 2:05PM ; [facility], [facility] Not a current smoker. 10/05/2020 Last Documented On 4 2:05PM ; [facility], [facility] Not using alcohol 10/05/2020 Last Documented On 4 2:05PM ; [facility] Not using drugs 10/05/2020 Last Documented On 4 2:05PM ; [facility] Non-smoker 10/05/2020 Last Documented On 4 2:05PM ; [facility] Not a current smoker 05/29/2018 Last Documented On 4 2:05PM ; [facility] No tobacco use 05/29/2018 Last Documented On 4 2:05PM ; [facility] Smoking status : Former smoker 9 Last Documented On 4 2:05PM ; [facility] Procedures and Surgical History Includes: Procedures from this encounter Procedures Code Diagnosis Performing Provider Service L ocation Service Date use of tobacco assessment performed 1000F Last Documented On 4 2:05PM ; [facility] patient screened for future fall risk: documentation of any fall with injury in past year 1100F Last Documented On 4 2:05PM ; [facility] review of medications documented 1160F Last Documented On 4 2:05PM ; [facility] an X-ray was performed 83908 Last Documented On 4 2:05PM ; [facility] an MRI was performed [id number] Last Documented On 4 2:05PM ; [facility] Surgical History Last Updated Past Surgical History: 03/16/2023 Last Documented On 4 2:05PM ; [facility] Medical History Includes: Medical History addressed during this encounter Description Last Updated History of Anemia 03/16/2023 Last Documented On 4 2:05PM ; [facility] History of History of Blood Clots 2022 Last Documented On 4 2:05PM ; [facility] Arthritis 10/05/2020 Last Documented On 4 2:05PM ; [facility] History of Arthroscopy 10/05/2020 Last Documented On 4 2:05PM ; [facility] Recent immunization for flu 10/05/2020 Last Documented On 4 2:05PM ; [facility] Recent immunization for pneumococcal pne umonia 10/05/2020 Last Documented On 4 2:05PM ; [facility] Shoulder arthroplasty 10/05/2020 Last Documented On 4 2:05PM ; [facility] Total hip replacement 10/05/2020 Last Documented On 4 2:05PM ; [facility] Total knee arthroplasty 10/05/2020 Last Documented On 4 2:05PM ; [facility] arthroscopy ~total joint replacement ~hi gh cholesterol 05/29/2018 Last Documented On 4 2:05PM ; [facility] Arthritic joint problems 05/29/2018 Last Documented On 4 2:05PM ; [facility] History of depression 05/29/2018 Last Documented On 4 2:05PM ; [facility] History of hepatitis C 05/29/2018 Last Documented On 4 2:05PM ; [facility] Family History Includes: Family History addressed during this encounter Description Last Updated Family history of cancer 10/05/2020 Last Documented On 4 2:05PM ; [facility] Family history of osteoporosis 1 Last Documented On 4 2:05PM ; [facility] Family history of thromboembolic disease 05/29/2018 Last Documented On 4 2:05PM ; [facility] Review of Systems Includes: Review [...] Active Last Documented On 06/16/2024 12:48PM ; [facility], [facility] Note: joint pain- Major fluoroquinolones Allergy 09/04/2018 Ac tive Last Documented On 5 12:48PM ; [facility], [facility] Encounters Encounter Provider Location Date Check-In Time Check-Out Time Diagnosis Follow Up Bautista Luis MD [facility] B 4 2:02PM 2:30PM Overweight Insurance Includes: Active Insurance Policies Plan Name Member ID Group # Subscriber Relationship Effect sherman Dates 1 - Medicare Part B [facility] [id number] Farrah Atkinson Self 4 - Unknown 2 - [facility] [id number] Farrah Atkinson Self 05/03/2019 - Unknown Clinical Notes Includes: Clinical Notes from this encounter * Progress note Date Encounter Last Documented by 04/30/2023 Follow Up Last documented on 05/01/2023; 3:50 PM, Bautista Luis MD; [facility], [facility] Active Problems & Conditions - Joint [...] directed 0 days, 0 refills - Nystatin-Triamcinolone 474011-5.1 UNIT/GM-% External Cream take as directed 0 [...] Care Team - Chandra Leahy MD - [employer]
--- OUTSIDE RECORDS SUMMARY | 2025-02-19 23:40 | XMS_ITS | Clinical Summary ---
Author Organization [facility] Address [address] [place] [address] Phone Care Team Providers Care Dry Goods Clerk Name Role Phone Tosin VARGAS, Chandra Flores Unavailable [phone] Chel VARGAS, Davidson Unavailable [phone] Timothy Granda Primary Care Provider Unavailabl e Reason for Visit and Chief Complaint The Chief Complaint is: Left shoulder pain Problems Includes: Problems addressed during this encounter and other active Problems All Visits Onset Date Resolved Date Provider Condition S tatus Joint Pain Shoulder Left 03/16/2023 Funmi Robles PA-C Active Last Documented On 3 10:30AM ; [facility] Joint Pain Left Knee 03/31/2022 Jesus giles MD Active Last Documented On 2 10:01AM ; [facility] Joint Pain Right Knee 02/12/2019 Timothy dye MD Active Last Documented On 9 10:35AM ; [facility] Joint Pain Hip Right 02/12/2019 Timothy Foster MD Active Last Documented On 9 10:35AM ; [facility] Joint Pain Shoulder 05/29/2018 Bautista christie MD Active Last Documented On 9 10:31AM ; [facility] Plan of Treatment - Patient screened for future fall risk: documentation of any fall with injury in past year - Last Documented On 01/30/2024 4:58PM ; [facility] Fall Risk Assessment: This patient has [...] Documented On 01/30/2024 4:58PM ; [facility] Referrals To Diagnosis Consult with [facility] Note: REFFERAL TO SHARON Orozco @ [facility] ) Last Documented On 4 4:58PM ; [facility] Note: Dr Sharon [facility] // cc Last Documented On 4 11:37AM ; [facility] Instructions to patient Lose weight Last Documented On 4 2:44PM ; [facility] Assessments Includes: Assessments from this encounter Findings - Overweight - Last Documented On 01/30/2024 4:58PM ; [facility] Instructions Includes: Instructions from this encounter Instructions to patient Lose weight Last Documented On 4 2:44PM ; [facility] Medical Equipment - Implanted Devices Includes: Current Devices No Medical Equipment Recorded Medications Includes: Medications discussed during this encounter and other current Medications Discontinued / Stopped on this date Chandra Leahy MD on 03/12/2023 Acyclovir 400 MG Oral Tablet Provider: Chandra Leahy MD Diagnosis: Last Documented On 4 2:43PM By Karen [facility] Eliquis 5 MG Oral Tablet Provider: Aaron Leahy MD Diagnosis: Last Documented On 4 2:43PM By Karen AMBRIZ [facility], [facility] Diphenoxylate-Atropine 2.5-0.025 MG Oral Tablet Provider: Diagnosis: Last Documented On 4 2:43PM By [facility] OxyCONTIN 20 MG Oral Tablet ER 12 Hour Abuse-Deterrent Provider: Diagnosis: Last Documented On 4 2:43PM By Karen Ornelas ; [facility] Sulfamethoxazole-Trimethoprim 400-80 MG Oral Tablet Provider: Diagnosis: Last Documented On 4 2:43PM By Karen Ornelas ; [facility] Potassium Chloride Amy ER 2 0 MEQ Oral Tablet Extended Release Provider: MADI CHAPIN MD Diagnosis: Last Documented On 4 2:43PM By Karen Ornelas ; [facility] Levothyroxine Sodium 25 MCG Oral Tablet P rovider: Chandra Leahy MD Diagnosis: Last Documented On 4 2:43PM By Karen Ornelas ; [facility] amLODIPine Besylate 5 MG Oral Tablet Prov ider: Diagnosis: Last Documented On 4 2:43PM By Karen Ornelas ; [facility] Cephalexin 500 MG Oral Capsule Provider: Diagnosis: Last Documented On 4 2:43PM By Karen Ornelas ; [facility] oxyCODONE HCl 10 MG Oral Tablet Provider: Chandra Leahy MD Diagnosis: Last Documented On 4 2:43PM By Karen Ornelas ; [facility] amLODIPine Besylate 10 MG Oral Tablet Pro vider: MADI CHAPIN MD Diagnosis: Last Documented On 4 2:44PM By Karen Ornelas ; [facility] Atorvastatin Calcium 20 MG Oral Tablet Pr ovider: MADI CHAPIN MD Diagnosis: Last Documented On 4 2:44PM By Karen Ornelas ; [facility] cloNIDine HCl 0.1 MG Oral Tablet Provider : Diagnosis: Last Documented On 4 2:44PM By Karen Ornelas ; [facility] Potassium Chloride Amy ER 2 0 MEQ Oral Tablet Extended Release Provider: MADI CHAPIN MD Diagnosis: Last Documented On 4 2:44PM By Karen Ornelas ; [facility] Current Medications (continue as prescribed) Acyclovir 400 MG Oral Tablet 01/27/2024 Provider: Diagnosis: Last Documented On 4 2:44PM By Karen Ornelas ; [facility] oxyCODONE HCl 10 MG Oral Tablet 01/22/2024 Provider: Diagnosis: Last Documented On 4 2:44PM By Karen Ornelas ; [facility] Dicyclomine HCl 10 MG Oral Capsule 01/22/2024 Provid er: CASTILLO ESPINO II, MD Diagnosis: Last Documented On 4 2:44PM By Karen Ornelas ; [facility] tiZANidine HCl 4 MG Oral Tablet 01/18/2024 Provider: Diagnosis: Last Documented On 4 2:44PM By Karen Ornelas ; [facility] Sulfamethoxazole-Trimethoprim 400-80 MG Oral Tablet Provider: Diagnosis: Last Documented On 4 2:44PM By Karen Ornelas ; [facility] DULoxetine HCl 60 MG Oral Capsule Delayed Releas e Particles 01/18/2024 Provider: Diagnosis: Last Documented On 4 2:44PM By Karen Ornelas ; [facility] HYDROmorphone HCl 4 MG Oral Tablet 01/08/2024 Provid er: Diagnosis: Last Documented On 4 2:44PM By Karen Ornelas ; [facility] Fluticasone-Salmeterol 100-5 0 MCG/ACT Inhalation Aerosol Powder Breath Activated 01/08/2024 Provider: Diagnosis: Last Documented On 4 2:44PM By Karen Ornelas ; [facility] Atorvastatin Calcium 40 MG Oral Tablet 01/08/2024 Pr ovider: Diagnosis: Last Documented On 4 2:44PM By Karen Ornelas ; [facility] Levothyroxine Sodium 25 MCG Oral Tablet 12/31/2023 P rovider: Diagnosis: Last Documented On 4 2:44PM By Karen Ornelas ; [facility] Eliquis 5 MG Oral Tablet 12/31/2023 Provider: Diagnosis: Last Documented On 4 2:44PM By Karen Ornelas ; [facility] Atorvastatin Calcium 20 MG Oral Tablet 12/31/2023 Pr ovider: Diagnosis: Last Documented On 4 2:44PM By Karen Ornelas ; [facility] amLODIPine Besylate 5 MG Oral Tablet 12/10/2023 Prov ider: Diagnosis: Last Documented On 4 2:44PM By Karen Ornelas ; [facility] Albuterol Sulfate 108 (90 Ba se) MCG/ACT Inhalation Aerosol Powder Breath Activated 06/15/2022 Provider: Diagnosis: Last Documented On 3 8:21AM By Merari Parson ; [facility] Cymbalta 20 MG Oral Capsule Delayed Release Particles 06/15/2022 Provider: Diagnosis: Last Documented On 3 8:21AM By Merari Parson ; [facility] Estradiol 0.1 MG/GM Vaginal Cream 06/15/2022 Provide r: Diagnosis: Last Documented On 3 9:04AM By Merari Parson ; [facility] Retin-A 0.1% External Cream 06/15/2022 Provider: Diagnosis: Last Documented On 3 9:03AM By Merari Parson ; [facility] Nystatin-Triamcinolone 863332-3.1 UNIT/GM-% External C ream 06/15/2022 Provider: Diagnosis: Last Documented On 3 9:02AM By Merari Parson ; [facility] Triamcinolone Acetonide 0.1% External Cream 06/15/2022 Provider: Diagnosis: Last Documented On 3 8:29AM By Merari Parson ; [facility] oxyCODONE HCl 10 MG Oral Tablet 06/15/2022 Provider: Diagnosis: Last Documented On 3 8:27AM By Merari Parson ; [facility] Losartan Potassium 50 MG Oral Tablet 06/15/2022 Prov ider: Diagnosis: Last Documented On 3 8:26AM By Merari Parson ; [facility] Fluticasone-Salmeterol 250-5 0 MCG/ACT Inhalation Aerosol Powder Breath Activated 06/15/2022 Provider: Diagnosis: Last Documented On 3 8:25AM By Merari Parson ; [facility] Diphenoxylate-Atropine 2.5-0.025 MG Oral Tablet 2022 Provider: Diagnosis: Last Documented On 3 8:22AM By Merari Parson ; [facility] Acyclovir 400 MG Oral Tablet 10/05/2020 Provider: Diagnosis: Last Documented On 1 3:19PM By Adele Trevino ; [facility] Past Medications on file oxyCODONE HCl 5 MG Oral Tablet 07/19/2022 - 07/29/2022 Provider: Jesus Zimmer MD Diagnosis: Take 1 tablet by mouth every 4-6 hrs for break through pain Last Documented On 3 11:00AM By Jesus Espinosa ; [facility] Meloxicam 15 MG Oral Tablet 07/03/2022 - 07/17/2022 Pr ovider: Jesus Espinosa MD Diagnosis: once a day Last Documented On 3 8:45AM By Barbara Correa ; [facility] Ondansetron HCl 4 MG Oral Tablet 06/30/2022 - 07/07/2022 Provider: Jesus Zimmer MD Diagnosis: 1 po q 6h prn nausea Last Documented On 3 1:35PM By Jesus Espinosa ; [facility] oxyCODONE HCl 5 MG Oral Tablet 06/30/2022 - 07/10/2022 Provider: Jesus Zimmer MD Diagnosis: Take 1 tablet by mouth every 4-6 hrs for break through pain Last Documented On 3 1:35PM By Jesus Espinosa ; [facility] Acetaminophen 500 MG Oral Tablet 06/30/2022 - 07/14/2022 Provider: Jesus Zimmer MD Diagnosis: Take 2 tablets by mouth every 8 hours Last Documented On 3 1:35PM By Jesus Espinosa ; [facility] Cefadroxil 500 MG Oral Capsule 06/30/2022 - 07/07/2022 Provider: Jesus Zimmer MD Diagnosis: Take 1 tablet by mouth every 12 hours for 7 days Last Documented On 3 1:35PM By Jesus Espinosa ; [facility] Aspirin EC 81 MG Oral Tablet Delayed Release 06/30/2022 - 08/11/2022 Provider: Jesus Espinosa MD Diagnosis: Take 1 tablet by mouth every 12 hours for 42 days post op Last Documented On 3 1:35PM By Jesus Espinosa ; [facility] Vitamin D3 50 MCG (1999 [place]) Oral Tablet 06/20/2022 - 07/20/2022 Provider: Diana ABDI Diagnosis: once a day Last Documented On 3 1:03PM By Diana Rosas ; [facility] cloNIDine HCl 0.1 MG Oral Tablet 10/05/2020 - 11/05/19 Provider: Diagnosis: Last Documented On 1 3:16PM By Adele Sawyer [facility] Atorvastatin Calcium 20 MG O ral Tablet 10/05/2020 - 11/04/2020 Provider: MADI CHAPIN MD Diagnosis: Last Documented On 1 3:18PM By Adele Trevino ; [facility] Medications Administered Includes: Administered Medications from this encounter No Administered Medications Recorded Vital Signs Includes: Vital Signs from this encounter Vital Name 01/30/2024 02:45P Height (in) 62 Weight (lb) 140 Body Mass Index 25.6 Body Surface Area 1.6 Note: ct Last Documented: On 01/30/2024 3:32PM ; [facility] Results Includes: Results discussed during [...] will refer her to Dr. Mixon in [place] for further evaluation and treatment. Social History Description Last Updated Recent change in diet 01/30/2024 Last Documented On 4 4:58PM ; [facility] Not a current smoker. 01/30/2024 Last Documented On 4 4:58PM ; [facility] Caffeine use 10/05/2020 Last Documented On 4 2:44PM ; [facility] Exercising regularly 10/05/2020 Last Documented On 4 2:44PM ; [facility] No recent change in diet 10/05/2020 Last Documented On 4 2:44PM ; [facility] Not a current smoker. 10/05/2020 Last Documented On 4 2:44PM ; [facility] Not using alcohol 10/05/2020 Last Documented On 4 2:44PM ; [facility] Not using drugs 10/05/2020 Last Documented On 4 2:44PM ; [facility] No tobacco use 05/29/2018 Last Documented On 4 2:44PM ; [facility] Smoking Status Unknown Procedures and Surgical History Includes: Procedures from this encounter Procedures Code Diagnosis Performing Provider Service L ocation Service Date use of tobacco assessment performed 1000F Last Documented On 4 2:44PM ; [facility] patient screened for future fall risk: documentation of any fall with injury in past year 1100F Last Documented On 4 2:44PM ; [facility] review of medications documented 1160F Last Documented On 4 2:44PM ; [facility] was performed 78175 Last Documented On 4 2:44PM ; [facility] 92920 Last Documented On 4 3:34PM ; [facility] an MRI was performed 29412 Last Documented On 4 2:44PM ; [facility] Surgical History Last Updated History of History of Arthroscopy 2023 Last Documented On 4 4:58PM ; [facility] History of Previous Fractures 01/30/2024 Last Documented On 4 4:58PM ; [facility] History of total hip replacement 024 Last Documented On 4 4:58PM ; [facility] History of total knee arthroplasty 01/29 Last Documented On 4 4:58PM ; [facility] Past Surgical History: 03/16/2023 Last Documented On 4 2:44PM ; [facility] Medical History Includes: Medical History addressed during this encounter Description Last Updated History of asthma 01/30/2024 Last Documented On 4 4:58PM ; [facility] History of History of Blood Transfusion 01/30/2024 Last Documented On 4 4:58PM ; [facility] History of Hypertension 01/30/2024 Last Documented On 4 4:58PM ; [facility] History of Anemia 03/16/2023 Last Documented On 4 2:44PM ; [facility] History of arthritis 03/16/2023 Last Documented On 4 2:44PM ; [facility] History of History of Blood Clots 2022 Last Documented On 4 2:44PM ; [facility] Anemia 10/05/2020 Last Documented On 4 2:44PM ; [facility] Arthritis 10/05/2020 Last Documented On 4 2:44PM ; [facility] History of Arthroscopy 10/05/2020 Last Documented On 4 2:44PM ; [facility] Recent immunization for flu 10/05/2020 Last Documented On 4 2:44PM ; [facility] Recent immunization for pneumococcal pne umonia 10/05/2020 Last Documented On 4 2:44PM ; [facility] Shoulder arthroplasty 10/05/2020 Last Documented On 4 2:44PM ; [facility] Total hip replacement 10/05/2020 Last Documented On 4 2:44PM ; [facility] Total knee arthroplasty 10/05/2020 Last Documented On 4 2:44PM ; [facility], [facility] arthroscopy ~total joint replacement ~hi gh cholesterol 05/29/2018 Last Documented On 4 2:44PM ; [facility] Arthritic joint problems 05/29/2018 Last Documented On 4 2:44PM ; [facility] History of depression 05/29/2018 Last Documented On 4 2:44PM ; [facility] History of hepatitis C 05/29/2018 Last Documented On 4 2:44PM ; [facility] Family History Includes: Family History addressed during this encounter Description Last Updated Family history of cancer 10/05/2020 Last Documented On 4 2:44PM ; [facility] Family history of osteoporosis Last Documented On 4 2:44PM ; [facility] Family history of thromboembolic disease 05/29/2018 Last Documented On 4 2:44PM ; [facility] Review of Systems Includes: Review of [...] Active Last Documented On 06/16/2024 12:48PM ; [facility] Note: joint pain- Major fluoroquinolones Allergy 09/04/2018 Ac tive Last Documented On 5 12:48PM ; [facility] Encounters Encounter Provider Location Date Check-In Time Check-Out Time Diagnosis Follow Up Chandra Grewal PA-C [facility] 01/30/20 24 2:50PM 3:29PM Overweight Insurance Includes: Active Insurance Policies Plan Name Member ID Group # Subscriber Relationship Effect sherman Dates 1 - Medicare Part B [facility] [id number] Farrah Atkinson Self 4 - Unknown 2 - Open CS [id number] Farrah Atkinson Self 05/03/2019 - Unknown Clinical Notes Includes: Clinical Notes from this encounter * Progress note Date Encounter Last Documented by 01/30/2024 Follow Up Last documented on 01/30/2024; 4:58 PM, Chandra Grewal PA-C; [facility] Active Problems & Conditions - [...] will refer her to Dr. Mixon in [place] for further evaluation and treatment. Current Medication [...] directed 0 days, 0 refills - Nystatin-Triamcinolone 505282-5.1 UNIT/GM-% External Cream take as directed 0 [...] Care Team - Chandra Leahy MD - AIRCRAFT LANDING GEAR INSPECTOR
--- OUTSIDE RECORDS SUMMARY | 2025-02-19 23:40 | XMS_ITS | Patient Health Record ---
Author Organization [facility] Address [address] [place] [address] Care Team Providers Care Cutting And Splicing Supervisor Name Role Phone Timothy Granda DO Primary Care Provider Tha Chaudhry Unavailable [phone] Jesus Rose Unavailable Unavailable Reason For Referral No Information Encounters Encounter Location Date Provider Diagnosis [facility] [address] [place] [address] 04/01/2024 Tha Krishnamurthy [facility] [address] [place] [address] 05/13/2024 Tha Krishnamurthy [facility] [address] [place] [address] 06/17/2024 Tha Krishnamurthy Plan Of Treatment No Information Insurance Providers Payer Name Payer Address Payer Phone Subscriber Number Group Number Insured Name Patient Relationship to Insured Coverage Start Date Coverage End Date Medicare CGS Administrators [address] [id number] Farrah Anna Self - patient is the insured
--- OUTSIDE RECORDS SUMMARY | 2025-02-19 23:40 | XMS_ITS | Encounter Summary ---
Author Organization [employer] ([place], [place], [place], [place], [place]) Address [address] [place] [address] Care Team Providers Care Level Glass Forming Machine Operator Name Role Phone [facility], Provider Not In The System Primary Care Provider Unavailable Encounter Details Date Type Department Care Team (Late st Contact Info) Description 04/28/2019 Transcribed Document [facility] Family Medicine [facility] [address] ProviderJean-Claude MD [address] [place] [address] Social History Tobacco Use Types [...] - Historical ProviderMD - 04/28/2019 8:29 AM SAUSAGE MIXER Pain Assessment Entered On: 04/28/2019 9:28 EST [...] on filedocumented in this encounter Care Teams Level Glass Forming Machine Operator Relationship Specialty Start Date End Date [facility], Provider Not In The System, [place] [address] PCP - General 04/16/23 documented as of this encounter
--- OUTSIDE RECORDS SUMMARY | 2025-02-19 23:40 | XMS_ITS | Encounter Summary ---
Author Organization [employer] ([place], [place], [place], [place], [place]) Address [address] [place] [address] Care Team Providers Care Assisted Living Home Director Name Role Phone [facility], Provider Not In The System Primary Care Provider Unavailable Encounter Details Date Type Department Care Team (Late st Contact Info) Description 04/28/2019 Transcribed Document [facility] Family Medicine [address] [place] [address] ProviderJean-Claude MD [address], [place] [id number] Social History Tobacco Use Types Packs/Day Years Used Date Smoking Tobacco: Never Assessed Comments Unknown Sex and Gender Information Value Date Recorded Sex Assigned at Not on file Legal Sex Female 5:42 PM CDT Gender Identity Not on file Sexual Orientation Not on file documented as of this encounter Miscellaneous Notes * Cerner Conversion Note - Historical ProviderMD - 04/28/2019 8:05 AM MORNING NEWS ANCHOR [facility]I Main OR PreOp Summary Primary Physician: MADISON OSPINA MD-ORT Finalized Date/Time: 04/28/19 09:32:12 Pt. Name: MOISE ATKINSON/Sex: 1950 Female Med Rec #: [id number] Physician: MADISON OSPINA MD-ORT Financial #: [id number] Pt. Type: O Room/Bed: Admit/Disch: 04/28/19 05:30:00 - Institution: [facility] PreOp Case Times Entry 1 In Preop 04/28/19 05:40:00 Ready for Holding n/a Room Patient Ready for 04/28/19 07:15:00 Surgery Patient Out of Preop 04/28/19 07:36:00 Patient Out of n/a Holding Room Last Modified By: ISAMAR MORRISON RN 04/28/19 09:32:08 David PreOp Case Times Audit 04/28/19 09:32:08 Cosmetic Counselor: [email or web address] Modifier: [email or web address] <+> 1 Patient Out of Preop Finalized By: ISAMAR MORRISON, RN Document Signatures Signed By: ISAMAR MORRISON RN 04/28/19 09:32 documented in this encounter Plan of Treatment Not on file documented as of this encounter Visit Diagnoses Not on filedocumented in this encounter Care Teams Assisted Living Home Director Relationship Specialty Start Date End Date [facility], Provider Not In The System, [place] [address] PCP - General 04/16/23 documented as of this encounter
--- OUTSIDE RECORDS SUMMARY | 2025-02-19 23:40 | XMS_ITS | Encounter Summary ---
Author Organization Healthcare Address [address] [place] [address] Care Team Providers Care Marketing And Communications Officer Name Role Phone Timothy Granda DO Primary Care Provider [phone] Sadia Campo CHILDREN'S PROGRAM COORDINATOR Unavailable Unavailable Encounter Details Date Type Department Care Team (Late st Contact Info) Description 07/24/2023 Lab Requisition [facility] [address] [place] [address] Miky Coleman MD [address] [place] [address] Encounter for general adult medical [...] drink first t mini in the morning (EYE-INSTALLATION & MAINTENANCE EXECUTIVE) to steady your nerves or to get [...] 07/20/2025 10:40 AM EDT Office Visit Professional [facility] Nephrology, Bone & Mineral Metabolism [address], [address] [place] [address] Gutierrez Domínguez MD [address] [place] [phone] documented as of this encounter Procedures [...] MICROBIOLOGY - GEN ERAL ORDERABLES Final Result [facility] [address] [place] [address] documented in this encounter Visit Diagnoses Diagnosis [...] documented as of this encounter Care Teams Marketing And Communications Officer Relationship Specialty Start Date End Date Timothy Granda DO [address] [place] [address] PCP - General 05/25/23 Sadia Campo, CHILDREN'[place] [address] Clinical Trials Nurse Senior Clinical Consultant 08/03/22 06/21/24 documented as of this encounter
--- OUTSIDE RECORDS SUMMARY | 2025-02-19 23:40 | XMS_ITS | Encounter Summary ---
Author Organization [employer] ([place], [place], [place], [place], [place]) Address [address] [place] [address] Care Team Providers Care Systems Qa Analyst Name Role Phone Sj, Provider Not In The System Primary Care Provider Unavailable Encounter Details Date Type Department Care Team (Late st Contact Info) Description 04/28/2019 Transcribed Document [facility] [place] Medicine [facility] [place] [address] ProviderJean-Claude MD [address] [place] [address] Social History Tobacco Use Types [...] - Historical ProviderMD - 04/28/2019 8:05 AM JEWEL WAXER ADI Main OR IntraOp Summary Primary Physician: MADISON OSPINA MD-ORT Finalized Date/Time: 04/28/19 08:39:15 Pt. Name: MOISE ATKINSON D.O.B./Sex: 1950 Female Med Rec #: [id number] Physician: MADISON OSPINA MD-ORT Financial #: [id number] Pt. Type: O Room/Bed: Admit/Disch: 04/28/19 05:30:00 - Institution: [facility] Intra Case Attendance Entry 1 Entry 2 Entry 3 Case Attendee MADISON OSPINA MD-ORT WICKER, KAREN KIM, ARIA WATERS RN Role Performed Surgeon/Proceduralist, INSURANCE CLERK/Nurse Manager Critical Care Seed District Sales Manager, First First Time In 04/28/19 07:39:00 04/28/19 [...] SJE IntraOp Case Attendance Audit 04/28/19 08:34:51 Fretted Instrument Maker Hand: LONGGA Modifier: LONGGA 1 <+> Time Out 1 <*> Procedure Knee Arthroscopy 2 <+> Time Out 2 <*> Procedure Knee Arthroscopy 3 <+> Time Out 3 <*> Procedure Knee Arthroscopy 4 <+> Time Out 4 <*> Procedure Knee Arthroscopy 5 <+> Time Out 5 <*> Procedure Knee Arthroscopy 04/28/19 08:07:14 Fretted Instrument Maker Hand: LONGGA Modifier: LONGGA <+> 1 Time In [...] SJE IntraOp Case Times Audit 04/28/19 08:34:50 Fretted Instrument Maker Hand: LONGGA Modifier: LONGGA <+> 1 Out Room Time <+> 1 Stop Time 04/28/19 08:31:56 Fretted Instrument Maker Hand: LONGGA Modifier: LONGGA <+> 1 Stop Time [...] IntraOp Departure from OR Audit 04/28/19 08:32:27 Fretted Instrument Maker Hand: EMBER Modifier: LONGGA 1 <*> Patient Transport [...] RN 04/28/19 08:15:47 SJE IntraOp General Case Steam And Power Superintendent 1 Case Information OR OR 05 SJE Case Level 1 Room Verified Yes Wound Class I - Clean Specialty SN Orthopedic Anesthesia Type General ASA Class 3 Diagnosis Preop Diagnosis PATELLAR CHONDROMALACIA RIGHT KNEE Postop Same As Preop No Postop Diagnosis DICTATED BY Mary Last Modified By: ARIA MELCHOR RN 04/28/19 08:15:39 SJE IntraOp General Case Data Audit 04/28/19 08:15:39 Fretted Instrument Maker Hand: EMBER Modifier: LONGGA <+> 1 ASA Class [...] Entry 1 Medication/Irrigant epinephrine 30mg/30ml vial - [id number] Route of 3ML/3000ML OF NS Administration IRRIGATION [...] SJE IntraOp Patient Positioning Audit 04/28/19 08:17:49 Fretted Instrument Maker Hand: LONGGA Modifier: LONGGA 1 <*> Procedure Knee [...] SJE IntraOp Surgical Procedures Audit 04/28/19 08:31:50 Fretted Instrument Maker Hand: LONGGA Modifier: LONGGA 1 <*> Procedure Knee Arthroscopy 1 <+> Stop 04/28/19 08:27:35 Fretted Instrument Maker Hand: LONGGA Modifier: LONGGA 1 <*> Procedure Knee Arthroscopy 1 <*> Additional Procedure Description RIGHT KNEE ARTHROSCOPY FOR RETROPATELLAR CHONDROPLASTY AND PARTIAL MENISCECTOMY 04/28/19 08:21:54 Fretted Instrument Maker Hand: LONGGA Modifier: LONGGA 1 <*> Procedure Knee Arthroscopy 1 <*> Additional Procedure Description LEFT KNEE ARTHROSCOPY FOR RETROPATELLAR CHONDROPLASTY AND PARTIAL MENISCECTOMY SJE IntraOp Temp Regulation Devices Entry 1 Temp Regulation Temperature Forced Air Warming Regulation Device device Temperature 4765 Regulation Device Serial/Unit Number Temperature Upper body Regulation Site Temperature MOISE MANE, INSURANCE CLERK Regulation Device Applied by Last Modified By: [...] 08:31:38 SJE IntraOp Tourniquet Audit 04/28/19 08:31:38 Fretted Instrument Maker Hand: EMBER Modifier: EMBER <+> 1 Stop Time Case Comments <None> Finalized By: ARIA MELCHOR, RN Document Signatures Signed By: ARIA MELCHOR RN 04/28/19 08:39 documented in this encounter Plan of Treatment Not on file documented as of this encounter Visit Diagnoses Not on filedocumented in this encounter Care Teams Systems Qa Analyst Relationship Specialty Start Date End Date Deejay, Provider Not In The System, [place] [address] PCP - General 04/16/23 documented as of this encounter
--- OUTSIDE RECORDS SUMMARY | 2025-02-19 23:40 | XMS_ITS | Encounter Summary ---
Author Organization [employer] ([place], [place], [place], [place], [place]) Address [address] [place] [address] Care Team Providers Care Lead Custodian Name Role Phone Sj, Provider Not In The System Primary Care Provider Unavailable Encounter Details Date Type Department Care Team (Late st Contact Info) Description 04/28/2019 Transcribed Document [facility] [place] [facility] [place] [address] ProviderJean-Claude MD [address] [place] [address] Social History Tobacco Use Types [...] - Jean-Claude ProviderMD - 04/28/2019 9:47 AM WEB OFFSET PRESS FEEDER Patient Education Materials Follows: General Anesthesia, Adult, [...] activities are safe for you. ??? Take mmvw-cey-lrvgljx and prescription medicines only as told by [...] 06/25/2001 Document Revised: 11/02/2017 Document Reviewed: 11/02/2017 Picurio Interactive Patient Education ? 2019 [employer]. Knee Arthroscopy, Care After Refer to [...] activities are safe for you. ??? Perform cxcry-kl-embzvd exercises only as directed by your health [...] 03/15/2015 Elsevier Interactive Patient Education ? 2018 [employer]. documented in this encounter Plan of Treatment Not on file documented as of this encounter Visit Diagnoses Not on filedocumented in this encounter Care Teams Lead Custodian Relationship Specialty Start Date End Date Leslee, Provider Not In The System, [place] [address] PCP - General 04/16/23 documented as of this encounter
--- OUTSIDE RECORDS SUMMARY | 2025-02-19 23:40 | XMS_ITS | Clinical Summary ---
Author Organization [employer] ([place], [place], [place], [place], [place]) Address [address] [place] [address] Care Team Providers Care Waiter/Waitress Buffet Name Role Phone Sj, Provider Not In [...] Date Dereje rded Speak language other than New Zealander at home Not on file 04/12/2023 Want [...] - 1-dose 75+ series) 09/26/2026 Care Teams Waiter/Waitress Buffet Relationship Specialty Start Date End Date [facility], Provider Not In The System, [place] [address] PCP - General 04/16/23
--- OUTSIDE RECORDS SUMMARY | 2025-02-19 23:40 | XMS_ITS | Encounter Summary ---
Author Organization [employer] ([place], [place], [place], [place], [place]) Address [address] [place] [address] Care Team Providers Care Business Job Titles Name Role Phone [facility], Provider Not In The System Primary Care Provider Unavailable Encounter Details Date Type Department Care Team (Late st Contact Info) Description 04/28/2019 Transcribed Document [facility] [place] [address] [place] [address] ProviderJean-Claude MD [address] [place] [address] Social History Tobacco Use Types [...] - Historical ProviderMD - 04/28/2019 9:51 AM MEDICAL OFFICE REPRESENTATIVE [place] [id number] MOISE ATKINSON :1950 Visit Time:04/28/2019 What to do next Your Diagnosis Pain in unspecified knee, Pain in unspecified knee Instructions From Your Care Team No driving or legal decision for 24 hours after anesthesia. may advance diet as tolerated. May take [place] 10-325mg 1 tablet by mouth every 4-6 [...] days Where: [address] [place] [address]- Medications What How Much When Instructions Next [...] activities are safe for you. ??? Take lxja-bif-jcatccj and prescription medicines only as told by [...] 06/25/2001 Document Revised: 11/02/2017 Document Reviewed: 11/02/2017 Branded Online Interactive Patient Education ?? 2019 Branded Online Inc. Knee Arthroscopy, Care After Refer to [...] activities are safe for you. ??? Perform wexub-cj-vefmpy exercises only as directed by your health [...] 10/06/2005 Document Revised: 08/18/2016 Document Reviewed: 03/15/2015 Branded Online Interactive Patient Education ?? 2018 [employer]. acetaminophen and hydrocodone (a SEET a MIN oh fen and ladonna droe KOE done) Hycet, Lorcet, [place], Verdrocet, Vicodin, Xodol, Zamicet What is the [...] may report side effects to FDA at 6-509-FGT-8307. What other drugs will affect acetaminophen and [...] affect acetaminophen and hydrocodone, including prescription and znuu-owv-mmmielv medicines, vitamins, and herbal products. Not all [...] to ensure that the information provided by [employer]. ('[employer]') is accurate, up-to-date, and complete, but no guarantee is made to that effect. Drug information contained herein may be time sensitive. [employer] information has been compiled for use by healthcare practitioners and consumers in the [place] and therefore [employer] does not warrant that uses outside of the [place] are appropriate, unless specifically indicated otherwise. [employer] It [employer] drug information does not endorse drugs, diagnose patients or recommend therapy. Duroline drug information is an informational resource designed [...] effective or appropriate for any given patient. [employer] does not assume any responsibility for any aspect of healthcare administered with the aid of information [employer] provides. The information contained herein is not intended to cover all possible uses, directions, precautions, warnings, drug interactions, allergic reactions, or adverse effects. If you have questions about the drugs you are taking, check with your doctor, nurse or pharmacist. Copyright 3669-7878 [employer]. Version: 15.02. Revision Date: 02/04/2018. Emergency Awareness [...] Assistance with quitting is available by contacting 9-861-VTJG-NOW. This is a free resource providing counseling, [...] was given the opportunity to ask questions. Patient/Sales And Service Officer Name: Patient/Sales And Service Officer Signature: Relationship to Patient: Clinician/Hospital Sales And Service Officer Signature: Date: documented in this encounter Plan of Treatment Not on file documented as of this encounter Visit Diagnoses Not on filedocumented in this encounter Care Teams Business Job Titles Relationship Specialty Start Date End Date Deejay, Provider Not In The System, [place] [address] PCP - General 04/16/23 documented as of this encounter
--- OUTSIDE RECORDS SUMMARY | 2025-02-19 23:40 | XMS_ITS | Referral Summary ---
Author Organization [employer] ([place], [place], [place], [place], [place]) Address [address] [place] [address] Care Team Providers Care Oil Exploration Engineer Name Role Phone [facility], Provider [...] Date Dereje rded Speak language other than Kyrgyz at home Not on file 04/12/2023 Want [...] of Treatment Not on file Care Teams Oil Exploration Engineer Relationship Specialty Start Date End Date [facility], Provider Not In The System, [place] [address] PCP - General 04/16/23
--- OUTSIDE RECORDS SUMMARY | 2025-02-19 23:40 | XMS_ITS | Encounter Summary ---
Author Organization [employer] ([place], [place], [place], [place], [place]) Address [address] [place] [address] Care Team Providers Care Bowling Ball Patcher Name Role Phone [facility], Provider Not In The System Primary Care Provider Unavailable Encounter Details Date Type Department Care Team (Late st Contact Info) Description 04/28/2019 Transcribed Document [facility] [place] [facility] [place] [address] ProviderJean-Claude MD [facility] [place] [id number] Social History Tobacco Use Types Packs/Day Years Used Date Smoking Tobacco: Never Assessed Comments Unknown Sex and Gender Information Value Date Recorded Sex Assigned at Not on file Legal Sex Female 5:42 PM CDT Gender Identity Not on file Sexual Orientation Not on file documented as of this encounter Miscellaneous Notes * Cerner Conversion Note - Historical ProviderMD - 04/28/2019 8:29 AM ASSEMBLER SEMICONDUCTOR Pain Assessment Entered On: 04/28/2019 9:06 EST Performed On: 04/28/2019 9:18 EST by Eduarda Patel Rn Patient Care Bedside Intervention Information: fentaNYL Performed by Eduarda Patel Rn Patient Care Bedside on 04/28/2019 08:48:00 EST fentaNYL,50mcg IV Push,Peripheral Line 1,Pain (Moderate 4-6) Pain Assessment Pain Assessment : Follow-up assessment Pain Improved by Intervention : No Edurada Patel Rn Patient Care Bedside - 04/28/2019 9:06 EST documented in this encounter Plan of Treatment Not on file documented as of this encounter Visit Diagnoses Not on filedocumented in this encounter Care Teams Bowling Ball Patcher Relationship Specialty Start Date End Date Leslee, Provider Not In The System, [place] [address] PCP - General 04/16/23 documented as of this encounter
--- OUTSIDE RECORDS SUMMARY | 2025-02-19 23:40 | XMS_ITS | Encounter Summary ---
Author Organization [employer] ([place], [place], [place], [place], [place]) Address [address] [place] [address] Care Team Providers Care Net Applications Developer Name Role Phone [facility], Provider Not In The System Primary Care Provider Unavailable Encounter Details Date Type Department Care Team (Late st Contact Info) Description 04/28/2019 Transcribed Document [facility] [place] [facility] [place] [address] ProviderJean-Claude MD [address] [place] [place], [place] [id number] Social History Tobacco Use Types Packs/Day Years Used Date Smoking Tobacco: Never Assessed Comments Unknown Sex and Gender Information Value Date Recorded Sex Assigned at Not on file Legal Sex Female 5:42 PM CDT Gender Identity Not on file Sexual Orientation Not on file documented as of this encounter Miscellaneous Notes * Cerner Conversion Note - Historical ProviderMD - 04/28/2019 8:05 AM SHELLFISH DREDGE OPERATOR ADI Main OR PostOp Summary Primary Physician: MADISON OSPINA MD-ORT Finalized Date/Time: 04/28/19 10:18:29 Pt. Name: MOISE ATKINSON/Sex: 1950 Female Med Rec #: [id number] Physician: MADISON OSPINA MD-ORT Financial #: [id number] Pt. Type: O Room/Bed: Admit/Disch: 04/28/19 05:30:00 - Institution: [facility] Main OR PostOp Case Times Entry 1 In PACU II 04/28/19 09:36:00 Ready for PACU II 04/28/19 10:15:00 Discharge Discharge from PACU 04/28/19 10:15:00 II Last Modified By: Shanel Conrad SPENCER 04/28/19 10:18:24 Finalized By: Shanel Conrad, RN Document Signatures Signed By: Shanel Conrad RN 04/28/19 10:18 Electronically [address] by May [facility] Conversion Pharmacy Clerk Cerner at 07/23/2022 4:27 PM CDT documented in this encounter Plan of Treatment Not on file documented as of this encounter Visit Diagnoses Not on filedocumented in this encounter Care Teams Net Applications Developer Relationship Specialty Start Date End Date [facility], Provider Not In The System, [place] [address] PCP - General 04/16/23 documented as of this encounter
--- OUTSIDE RECORDS SUMMARY | 2025-02-19 23:40 | XMS_ITS | Encounter Summary ---
Author Organization [facility] Address [address] [place] [id number] Care Team Providers Care Construction Consultant Name Role Phone Connor Gomez MD Primary Care Provider [phone] Reason for Visit * Reason Comments Med Refill Encounter Details Date Type Department Care Team (Late st Contact Info) Description 12/22/2021 Refill [facility] [address] [place] [address] Connor Nunez MD [address] [place] [address] Chronic arthritis associated with viral [...] documented as of this encounter Care Teams Construction Consultant Relationship Specialty Start Date End Date Connor Gomez MD [facility] [place] [address] PCP - General Family Medicine 01/26/25 documented as of this encounter
--- OUTSIDE RECORDS SUMMARY | 2025-02-19 23:40 | XMS_ITS | Encounter Summary ---
Author Organization [employer] ([place], [place], [place], [place], [place]) Address [address] [place] [address] Care Team Providers Care Plywood Scarfer Tender Name Role Phone [facility], Provider Not In The System Primary Care Provider Unavailable Encounter Details Date Type Department Care Team (Late st Contact Info) Description 04/28/2019 Transcribed Document [facility] [place] Family Medicine [facility] [place] [address] ProviderJean-Claude MD [address] [place] [address] Social History Tobacco Use Types [...] - Historical ProviderMD - 04/28/2019 7:06 AM ODD PIECE CHECKER Pre Procedure Adult Entered On: 04/28/2019 7:12 EST Performed On: 04/28/2019 7:06 EST by ISAMAR MORRISON RN Height and Weight, Clinical Dosing Height Source : Stated Height Entry Format : [place] Height, Feet : 5 ft(Converted to: 152 cm, 60 Inch) Height, Inches : 2 Inch(Converted to: 0 ft 2 Inch, 5.08 cm) Clinical Height : 157.48 cm Weight Source : Standing scale Weight Entry Format : [place] Clinical Dosing Weight : 85 kg Weight, Pounds : 187 lb Body Surface Area (BSA) : 1.86 m2 Body Mass Index : 34.3 kg/m2 (HI) [place] Body Weight : 50 kg ISAMAR MORRISON [...] ISAMAR MORRISON RN - 04/28/2019 7:06 EST [place] Suicide Severity Rating Scale (C-SSRS) CSSRS Past [...] Scale Risk Level : 0-24 Low Risk [place] Fall Interventions : Bed in low position, [...] on filedocumented in this encounter Care Teams Plywood Scarfer Tender Relationship Specialty Start Date End Date Leslee, Provider Not In The System, [place] [address] PCP - General 04/16/23 documented as of this encounter
--- OUTSIDE RECORDS SUMMARY | 2025-02-19 23:41 | XMS_ITS | Encounter Summary ---
Author Organization [facility] Address [address] [place] [address] Care Team Providers Care Feller Machine Operator Name Role Phone Timothy Granda DO Primary Care Provider [phone] Encounter Details Date Type Department Care Team [...] drink first t mini in the morning (EYE-CERTIFIED PHARMACY TECH) to steady your nerves or to get rid of a hangover? 0 11/15/2023 CAGE Questionnaire Score 0 024 Utilities Answer Date Recorded In the past 12 months has th e mechatronic systemtechnik, gas, oil, or water company threatened to [...] Description 07/20/2025 10:40 AM EDT Office Visit [facility] Neph[facility], Bone [facility] Mineral Metabolism [address] [facility] [address], [address] [place] [address] Gutierrez Domínguez MD [address] [place] [id number] documented as of this encounter Visit Diagnoses Not on filedocumented in this encounter Additional Health Concerns Assessment Noted Time A fall risk assessment has been complete d for the patient 01/19/2025 10:00 AM EDT A Body Mass Index follow-up plan has been documented for the patient 01/20/2025 11:25 AM EDT documented as of this encounter Care Teams Feller Machine Operator Relationship Specialty Start Date End Date Timothy Granda DO [address] [place] [address] PCP - General 05/25/23 documented as of this encounter
--- OUTSIDE RECORDS SUMMARY | 2025-02-19 23:41 | XMS_ITS | Clinical Summary ---
Author Organization [facility] Address [address] [place] [address] Care Team Providers Care Aeronautical Engineer Name Role Phone Timothy Granda DO Primary Care Provider [phone] Allergies Active Allergy Reactions Criticality Noted Date [...] 1 (one) time each day. 3 Active cholecalciferol (Vitamin D-3) 50 [...] cloNIDine (Catapres) 0.1 MG tablet 4 Active acyclovir (Zovirax) 400 MG tablet 5 Active amitriptyline (Elavil) 50 MG tablet 5 Active ARIPiprazole (Abilify) 2 MG tablet Take 1 tablet by mouth daily. 5 Active estradiol (Estrace) 0.1 MG/GM vaginal cream 5 Active nystatin (Mycostatin) cream 5 Active atorvastatin (Lipitor) 40 MG tablet 5 Active tiZANidine (Zanaflex) 4 MG tablet 4 Active sulfamethoxazole-t rimethoprim (Bactrim DS) 800-160 MG tablet 5 Active HYDROmorphone (Dilaudid) 4 MG tablet 5 Active furosemide (Lasix) 40 MG tablet 5 Active Active Problems Problem Noted Date Diagnosed [...] 01/19/2025 10:00 AM EDT Office Visit [facility] Nephrology, Bone & Mineral Metabolism [address] [facility], [address] [place] [address] Gutierrez Domínguez MD Acute kidney injury (Primary Dx); Vitamin D deficiency; CKD stage 3a, GFR 45-59 ml/min ([facility]); Chronic kidney disease-mineral and bone disorder (CKD-MBD); Secondary hyperparathyroidism of renal origin ([facility]); Hypertension, unspecified type; Hyperlipidemia, unspecified hyperlipidemia type 01/19/2025 Travel 01/07/2025 Orders Only [facility] [address] [place] [address] Shantal Solorio TIP (acute kidney injury) (Primary Dx); Vitamin D insufficiency from Last 3 Months Immunizations Immunization Administration Dates Next Due Influenza Vaccine, Quadrivalent, Adjuvanted 01/31,01/25/2022,05/31/2021 Influenza, injectable, quadrivalent 02/14/2015 Influenza, injectable, quadr ivalent, preservative free 02/14/2015 Influenza, trivalent, adjuvanted 12/22/2019 Stone COVID-19 Vaccine (Blue Cap) 18+ 06/10/19 21 Moderna COVID-19 Vaccine (Re d Cap) 12+ [...] drink first t mini in the morning (EYE-DOCTOR OF PODIATRIC MEDICINE) to steady your nerves or to get rid of a hangover? 0 11/15/2023 CAGE Questionnaire Score 0 024 Utilities Answer Date Recorded In the past 12 months has th e Awareness Card, gas, oil, or water company threatened to [...] 07/20/2025 10:40 AM EDT Office Visit [facility]phrology, Bone & Mineral Metabolism [address] [facility], [address] [place] [address] Gutierrez Domínguez MD [address] [place] [address] Health Maintenance Due Date Last Done Comments [facility]-Bone Density Scan 1950 [facility]-/Child/Adol SDOH Screenings 1950 [facility]- SDOH Screenings 09/26/1969 [facility]-Adult SDOH Screenings 09/26/1969 [facility]-DTaP,Tdap,and Td Vaccines (1 - Tdap) 09/26/1970 CT Colonography 09/26/1996 FIT-DNA 09/26/1996 FIT 09/26/1996 FOBT 09/26/1996 [facility]-Breast Cancer Screening 09/26/2001 [facility]-Zoster Vaccines (1 of 2) 09/26/2001 [facility]-Medicare Annual Wellness (AWV) 03/13/2023 03/13/2022 [facility]-Depression Screening 03/27/2024 03/27/2023 [id number]-29 Vaccine ( season) 2024 02/20/2024, 02/09/2023, 01/25/2022, [...] Antigen Negative Negative 08/02/2023 7:49 PM EDT [facility] Hepatitis A Antibody IgM Negative Negative 08/02/2023 7:49 PM EDT [facility] Hepatitis B Core Antibody IgM Negative Negative 08/02/2023 7:49 PM EDT [facility] Blood Venous blood specimen [...] MD LAB BLOOD ORDERABLES Final R esult [facility] [address] [place] [address] * Flexible Sigmoidoscopy (02/21/2023 10:25 AM EST) [...] Misti Page MD Adam Rooks, MD Proceduralist anesthesia resident Adama Montes, Chika Peterson CRNA, RN Endo Nurse Butch Little MD Fellow Townsend, Allison Endo Automatic Serging Machine Operator Preprocedure A history and physical has [...] of bowel preparation was evaluated using the [place] Bowel Preparation Scale with scores of: left [...] of bowel preparation was evaluated using the [place] Bowel Preparation Scale with scores of: right [...] Recently Relevant to Health Maintenance Insurance MEDICARE [employer] COMMERCIAL Advance Directives * Full Code (Latest [...] Patient has decision-making capacity? Yes Care Teams Aeronautical Engineer Relationship Specialty Start Date End Date Timothy Granda DO [address] [place] [address] PCP - General 05/25/23
--- OUTSIDE RECORDS SUMMARY | 2025-02-19 23:41 | XMS_ITS | Clinical Summary ---
Author Organization [facility] , [facility] Address [address] [place] [address] Phone Care Team Providers Care Cpas Name Role Phone Tosin VARGAS, Chandra Flores Unavailable [phone] Chel VARGAS, Davidson Unavailable [phone] Timothy Granda Primary Care Provider Unavailabl e Reason for Visit and Chief Complaint The Chief Complaint is: L hip pain Problems Includes: Problems addressed during this encounter and other active Problems All Visits Onset Date Resolved Date Provider Condition S tatus Joint Pain Shoulder Left 03/16/2023 Funmi Robles PA-C Active Last Documented On 3 10:30AM ; [facility], [facility] Joint Pain Left Knee 03/31/2022 Jesus giles MD Active Last Documented On 2 10:01AM ; [facility], [facility] Joint Pain Right Knee 02/12/2019 Timothy dye MD Active Last Documented On 9 10:35AM ; [facility], [facility] Joint Pain Hip Right 02/12/2019 Timothy Foster MD Active Last Documented On 9 10:35AM ; [facility], [facility] Joint Pain Shoulder 05/29/2018 Bautista christie MD Active Last Documented On 9 10:31AM ; [facility], [facility] Plan of Treatment - Patient screened for future fall risk: documentation of any fall with injury in past year - Last Documented On 06/16/2024 1:41PM ; [facility], [facility] Fall Risk Assessment: This patient has been [...] - Last Documented On 06/16/2024 1:41PM ; [facility], [facility] Instructions to patient Lose weight Last Documented On 12:49PM ; [facility], [facility] Lose weight Last Documented On 12:50PM ; [facility], [facility] Assessments Includes: Assessments from this encounter Findings [...] - Last Documented On 06/16/2024 1:41PM ; [facility], [facility] Instructions Includes: Instructions from this encounter Instructions to patient Lose weight Last Documented On 5 12:49PM ; [facility], [facility] Lose weight Last Documented On 5 12:50PM ; [facility], [facility] Medical Equipment - Implanted Devices Includes: Current Devices No Medical Equipment Recorded Medications Includes: Medications discussed during this encounter and other current Medications Current Medications (continue as prescribed) Acyclovir 400 MG Oral Tablet 01/27/2024 Provider: Diagnosis: Last Documented On 4 2:44PM By Karen Sawyer [facility], [facility] oxyCODONE HCl 10 MG Oral Tablet 01/22/2024 Provider: Diagnosis: Last Documented On 4 2:44PM By Karen Ornelas ; [facility], [facility] Dicyclomine HCl 10 MG Oral Capsule 01/22/2024 Provid er: CASTILLO ESPINO II, MD Diagnosis: Last Documented On 4 2:44PM By Karen Ornelas ; [facility] tiZANidine HCl 4 MG Oral Tablet 01/18/2024 Provider: Diagnosis: Last Documented On 4 2:44PM By Karen Ornelas ; [facility] Sulfamethoxazole-Trimethoprim 400-80 MG Oral Tablet Provider: Diagnosis: Last Documented On 4 2:44PM By Karen Ornelas ; [facility], [facility] DULoxetine HCl 60 MG Oral Capsule Delayed Releas e Particles 01/18/2024 Provider: Diagnosis: Last Documented On 4 2:44PM By Karen Ornelas ; [facility] HYDROmorphone HCl 4 MG Oral Tablet 01/08/2024 Provid er: Diagnosis: Last Documented On 4 2:44PM By Karen Ornelas ; [facility], [facility] Fluticasone-Salmeterol 100-5 0 MCG/ACT Inhalation Aerosol Powder Breath Activated 01/08/2024 Provider: Diagnosis: Last Documented On 4 2:44PM By Karen Ornelas ; [facility], [facility] Atorvastatin Calcium 40 MG Oral Tablet 01/08/2024 Pr ovider: Diagnosis: Last Documented On 4 2:44PM By Karen Ornelas ; [facility], [facility] Levothyroxine Sodium 25 MCG Oral Tablet 12/31/2023 P rovider: Diagnosis: Last Documented On 4 2:44PM By Karen Ornelas ; [facility], [facility] Eliquis 5 MG Oral Tablet 12/31/2023 Provider: Diagnosis: Last Documented On 4 2:44PM By Karen Ornelas ; [facility], [facility] Atorvastatin Calcium 20 MG Oral Tablet 12/31/2023 Pr ovider: Diagnosis: Last Documented On 4 2:44PM By Karen Ornelas ; [facility], [facility] amLODIPine Besylate 5 MG Oral Tablet 12/10/2023 Prov ider: Diagnosis: Last Documented On 4 2:44PM By Karen Ornelas ; [facility], [facility] Albuterol Sulfate 108 (90 Ba se) MCG/ACT Inhalation Aerosol Powder Breath Activated 06/15/2022 Provider: Diagnosis: Last Documented On 3 8:21AM By Merari Parson ; [facility], [facility] Cymbalta 20 MG Oral Capsule Delayed Release Particles 06/15/2022 Provider: Diagnosis: Last Documented On 3 8:21AM By Merari Parson ; [facility], [facility] Estradiol 0.1 MG/GM Vaginal Cream 06/15/2022 Provide r: Diagnosis: Last Documented On 3 9:04AM By Merari Parson ; [facility], [facility] Retin-A 0.1% External Cream 06/15/2022 Provider: Diagnosis: Last Documented On 3 9:03AM By Merari Parson ; [facility], [facility] Nystatin-Triamcinolone 241567-5.1 UNIT/GM-% External C ream 06/15/2022 Provider: Diagnosis: Last Documented On 3 9:02AM By Merari Parson ; [facility], [facility] Triamcinolone Acetonide 0.1% External Cream 06/15/2022 Provider: Diagnosis: Last Documented On 3 8:29AM By Merari Parson ; [facility], [facility] oxyCODONE HCl 10 MG Oral Tablet 06/15/2022 Provider: Diagnosis: Last Documented On 3 8:27AM By Merari Parson ; [facility], [facility] Losartan Potassium 50 MG Oral Tablet 06/15/2022 Prov ider: Diagnosis: Last Documented On 3 8:26AM By Merari Parson ; [facility], [facility] Fluticasone-Salmeterol 250-5 0 MCG/ACT Inhalation Aerosol Powder Breath Activated 06/15/2022 Provider: Diagnosis: Last Documented On 3 8:25AM By Merari Parson ; [facility], [facility] Diphenoxylate-Atropine 2.5-0.025 MG Oral Tablet 2022 Provider: Diagnosis: Last Documented On 3 8:22AM By Merari Parson ; [facility], [facility] Acyclovir 400 MG Oral Tablet 10/05/2020 Provider: Diagnosis: Last Documented On 1 3:19PM By Adele Trevino ; [facility], [facility] Past Medications on file oxyCODONE HCl 5 MG Oral Tablet 07/19/2022 - 07/29/2022 Provider: Jesus Zimmer MD Diagnosis: Take 1 tablet by mouth every 4-6 hrs for break through pain Last Documented On 3 11:00AM By Jesus Espinosa ; [facility], [facility] Meloxicam 15 MG Oral Tablet 07/03/2022 - 07/17/2022 Pr ovider: Jesus Espinosa MD Diagnosis: once a day Last Documented On 3 8:45AM By Barbara Correa ; [facility], [facility] Ondansetron HCl 4 MG Oral Tablet 06/30/2022 - 07/07/2022 Provider: Jesus Zimmer MD Diagnosis: 1 po q 6h prn nausea Last Documented On 3 1:35PM By Jesus Espinosa ; [facility], [facility] oxyCODONE HCl 5 MG Oral Tablet 06/30/2022 - 07/10/2022 Provider: Jesus Zimmer MD Diagnosis: Take 1 tablet by mouth every 4-6 hrs for break through pain Last Documented On 3 1:35PM By Jesus Espinosa ; [facility], [facility] Acetaminophen 500 MG Oral Tablet 06/30/2022 - 07/14/2022 Provider: Jesus Zimmer MD Diagnosis: Take 2 tablets by mouth every 8 hours Last Documented On 3 1:35PM By Jesus Espinosa ; [facility], [facility] Cefadroxil 500 MG Oral Capsule 06/30/2022 - 07/07/2022 Provider: Jesus Zimmer MD Diagnosis: Take 1 tablet by mouth every 12 hours for 7 days Last Documented On 3 1:35PM By Jesus Espinosa ; [facility], [facility] Aspirin EC 81 MG Oral Tablet Delayed Release 06/30/2022 - 08/11/2022 Provider: Jesus Espinosa MD Diagnosis: Take 1 tablet by mouth every 12 hours for 42 days post op Last Documented On 3 1:35PM By Jesus Sawyer [facility], [facility] Vitamin D3 50 MCG (1999 [place]) Oral Tablet 06/20/2022 - 07/20/2022 Provider: Diana ABDI Diagnosis: once a day Last Documented On 3 1:03PM By [facility] cloNIDine HCl 0.1 MG Oral Tablet 10/05/2020 - 11/05/19 Provider: Diagnosis: Last Documented On 1 3:16PM By Adele Sawyer [facility], [facility] Atorvastatin Calcium 20 MG O ral Tablet 10/05/2020 - 11/04/2020 Provider: MADI CHAPIN MD Diagnosis: Last Documented On 1 3:18PM By Adele Sawyer [facility], [facility] Medications Administered Includes: Administered Medications from this encounter No Administered Medications Recorded Vital Signs Includes: Vital Signs from this encounter Vital Name 06/16/2024 01:12P Height (in) 62 Weight (lb) 160 Body Mass Index 29.3 Body Surface Area 1.7 Note: ethel Last Documented: On 06/16/2024 1:12PM ; [facility], [facility] Results Includes: Results discussed during this encounter [...] total hip replacement done in 2007 in [place]. She states she is having groin pain [...] 01/30/2024 Last Documented On 5 12:49PM ; [facility], [facility] Not a current smoker. 01/30/2024 Last Documented On 5 12:49PM ; [facility], [facility] Tobacco non-user 02/17/2022 Last Documented On 5 12:49PM ; [facility], [facility] Caffeine use 10/05/2020 Last Documented On 5 12:49PM ; [facility], [facility] Exercising regularly 10/05/2020 Last Documented On 5 12:49PM ; [facility], [facility] No recent change in diet 10/05/2020 Last Documented On 5 12:49PM ; [facility], [facility] Not a current smoker. 10/05/2020 Last Documented On 5 12:49PM ; [facility] Not using alcohol 10/05/2020 Last Documented On 5 12:49PM ; [facility] Not using drugs 10/05/2020 Last Documented On 5 12:49PM ; [facility], [facility] Non-smoker 10/05/2020 Last Documented On 5 12:49PM ; [facility], [facility] Not a current smoker 05/29/2018 Last Documented On 5 12:49PM ; [facility], [facility] No tobacco use 05/29/2018 Last Documented On 5 12:49PM ; [facility] Smoking status : Former smoker 9 Last Documented On 5 12:49PM ; [facility], [facility] Procedures and Surgical History Includes: Procedures from this encounter Procedures Code Diagnosis Performing Provider Service Location Service Date HIP BILATERAL [address]01 Unilateral prima ry osteoarthritis, right hip, Trochanteric bursitis, left hip Jesus Espinosa MD [facility] 06/16/2024 Last Documented On 5 1:32PM ; [facility], [facility] use of tobacco assessment performed 1000F Last Documented On 5 12:49PM ; [facility], [facility] patient screened for future fall risk: documentation of any fall with injury in past year 1100F Last Documented On 5 12:49PM ; [facility] review of medications documented 1160F Last Documented On 5 12:49PM ; [facility], [facility] an X-ray was performed 71800 Last Documented On 5 12:49PM ; [facility], [facility] an MRI was performed [id number] Last Documented On 5 12:49PM ; [facility], [facility] Surgical History Last Updated History of History of Arthroscopy 2023 Last Documented On 5 12:48PM ; [facility], [facility] History of Previous Fractures 01/30/2024 Last Documented On 5 12:48PM ; [facility] History of total hip replacement 024 Last Documented On 5 12:48PM ; [facility], [facility] History of total knee arthroplasty 01/29 Last Documented On 5 12:48PM ; [facility], [facility] Past Surgical History: 03/16/2023 Last Documented On 5 12:48PM ; [facility], [facility] Medical History Includes: Medical History addressed during this encounter Description Last Updated History of asthma 01/30/2024 Last Documented On 5 12:48PM ; [facility] History of History of Blood Transfusion 01/30/2024 Last Documented On 5 12:48PM ; [facility] History of Hypertension 01/30/2024 Last Documented On 5 12:48PM ; [facility] History of History of Blood Clots 2022 Last Documented On 5 12:48PM ; [facility] Anemia 10/05/2020 Last Documented On 5 12:48PM ; [facility] Arthritis 10/05/2020 Last Documented On 5 12:48PM ; [facility], [facility] Recent immunization for flu 10/05/2020 Last Documented On 5 12:48PM ; [facility], [facility] Recent immunization for pneumococcal pne umonia 10/05/2020 Last Documented On 5 12:48PM ; [facility], [facility] arthroscopy ~total joint replacement ~hi gh cholesterol 05/29/2018 Last Documented On 5 12:48PM ; [facility], [facility] Arthritic joint problems 05/29/2018 Last Documented On 5 12:48PM ; [facility], [facility] History of depression 05/29/2018 Last Documented On 5 12:48PM ; [facility], [facility] History of hepatitis C 05/29/2018 Last Documented On 5 12:48PM ; [facility], [facility] Family History Includes: Family History addressed during this encounter Description Last Updated Family history of cancer 10/05/2020 Last Documented On 5 12:48PM ; [facility], [facility] Family history of osteoporosis Last Documented On 5 12:48PM ; [facility], [facility] Family history of thromboembolic disease 05/29/2018 Last Documented On 5 12:48PM ; [facility], [facility] No significant family history maternal- Breast cancer 05/29/2018 Last Documented On 5 12:48PM ; [facility], [facility] Review of Systems Includes: Review of Systems [...] Active Last Documented On 06/16/2024 12:48PM ; [facility] Note: joint pain- Major fluoroquinolones Allergy 09/04/2018 Ac tive Last Documented On 5 12:48PM ; [facility] Encounters Encounter Provider Location Date Check-In Time Check- Out Time Diagnosis Follow Up Jesus Espinosa MD [facility] 5 12:43PM 1:40PM Insurance Includes: Active Insurance Policies Plan Name Member ID Group # Subscriber Relationship Effect sherman Dates 1 - Medicare Part B [facility] [id number] Farrah Atkinson Self 4 - Unknown 2 - [employer] [id number] Farrah Atkinson Self 05/03/2019 - Unknown Clinical Notes Includes: Clinical Notes from this encounter * Progress note Date Encounter Last Documented by 06/16/2024 Follow Up Last documented on 06/16/2024; 1:41 PM, Jesus Espinosa MD; [facility] Active Problems & Conditions - [...] total hip replacement done in 2007 in [place]. She states she is having groin pain [...] directed 0 days, 0 refills - Nystatin-Triamcinolone 385167-7.1 UNIT/GM-% External Cream take as directed 0 [...] Care Team - Chandra Leahy MD - EATING DISORDER PSYCHOLOGIST
--- OUTSIDE RECORDS SUMMARY | 2025-02-19 23:41 | XMS_ITS | Encounter Summary ---
Author Organization Healthcare Address [address] [place] [address] Care Team Providers Care Mechanics Handyman Name Role Phone Chandra Leahy MD Primary Care Provider [phone] Timothy Granda DO Primary Care Provider [phone] Sadia Campo WAREHOUSE UNLOADER Unavailable Unavailable Encounter Details Date Type Department Care Team (Late st Contact Info) Description 08/14/2022 Lab Requisition [facility] [address] [place] [address] Dilip Lloyd MD [address] [address] Encounter for general adult medical [...] drink first t mini in the morning (EYE-HEEL BRUSHER) to steady your nerves or to get [...] 07/20/2025 10:40 AM EDT Office Visit Professional [facility] Nephrology, Bone & Mineral Metabolism [address], [address] [place] [address] Gutierrez Domínguez MD [address] [place] [address] documented as of this encounter [...] LAB MICROBIOLOGY - GENERAL ORDERABLES Final Result [facility] [address] [place] [address] documented in this encounter Visit Diagnoses Diagnosis Encounter for general adult medical examination without abnormal findings documented in this encounter Additional Health Concerns Infection Onset Date Last Indicated Resolved Time COVID-19 Rule-Out 07/22/2023 07/22/2023 07/22/2023 12:14 PM EDT C. difficile Rule-Out 07/26/2023 08/01/20232023 1:07 AM EDT Gastrointestinal Rule-Out 08/02/2023 08/01/2023 3:00 AM EDT documented as of this encounter Care Teams Mechanics Handyman Relationship Specialty Start Date End Date Chandra Leahy MD [address] [place] [address] PCP - General 08/02/22 05/24/23 Timothy Granda DO [address] [place] [address] PCP - General 05/25/23 Sad[place] [address] Shop Tailor Industrial Hygienist 08/03/22 06/21/24 documented as of this encounter
--- OUTSIDE RECORDS SUMMARY | 2025-02-19 23:41 | XMS_ITS | Clinical Summary ---
Author Organization [facility] Address [address] [place] [address] Phone Care Team Providers Care Supervisor Parking Lot Name Role Phone Unavailable Primary Care Provider [...] Insurance MEDICARE [place] PART A AND B [employer]
--- NOTE | 2025-02-20 00:18 | ECG_ITS ---
APPROVED REPORT Exam: Resting ECG HR:64 bpm ECG Measurements Heart Rate 64 AXES FL 152 P 56 QRSd 88 QRS 70 QT 403 T 70 QTc 412 Conclusion SINUS RHYTHM WITH SINUS ARRHYTHMIA NORMAL ECG Electronically signed by : JUSTIN ANDERSEN, 02/20/2025 02:05:54
[2025-02-20] MEDS: ASPIRIN 81MG CHEWABLE TABLET 324 MG PO (00:25)
[2025-02-20] MEDS: OXYCODONE 5MG IMMEDIATE RELEASE TABLET 10 MG PO (00:26)
[2025-02-20] MEDS: ONDANSETRON 4MG/2ML VIAL 4 MG IV (00:26)
[2025-02-20] MEDS: LACTATED RINGERS 1000ML 1,000 ML 999 ML IV (00:28)
--- NOTE | 2025-02-20 00:30 | HMH.EDGENADL ---
Discharge Plan Disposition Patient Disposition: Admitted Condition: Fair Prescriptions Prescriptions: No Action amitriptyline 50 mg tablet 50 mg PO HS Qty: 30 12RF aripiprazole 2 mg tablet 2 mg PO DAILY estradiol 0.25 mg/0.25 gram (0.1 %) gel in packet 1 packet transdermal DAILY nystatin 100,000 unit/gram cream 1 applic TOPICAL BID Qty: 30 5RF acyclovir 400 mg tablet 400 mg PO BID hydromorphone 4 mg tablet 4 mg PO BID PRN oxycodone 10 mg tablet 10 mg PO Q4HP MDD No> 6/day PRN (Reason: Moderate Pain (Scale Score 5-6)) Qty: 180 0RF hydromorphone 4 mg tablet 4 mg PO Q4HP PRN (Reason: Severe Pain (Scale Score 7-10)) Qty: 60 0RF Rx Instructions: max of 2/day duloxetine 60 mg capsule,delayed release(DR/EC) 60 mg PO BID Qty: 60 1RF ergocalciferol (vitamin D2) 1,250 mcg (50,000 unit) capsule 1,250 mcg PO WEEKLY Qty: 4 1RF atorvastatin 40 mg tablet 40 mg PO DAILY Qty: 90 3RF diphenoxylate-atropine 2.5-0.025 mg tablet 1 tab PO TID 90 Days Qty: 270 3RF amlodipine 5 mg tablet 5 mg PO HS Qty: 90 3RF levothyroxine 25 mcg tablet 25 mcg PO DAILY Qty: 90 3RF losartan 50 mg tablet 75 mg PO DAILY Qty: 135 3RF furosemide 40 mg tablet 40 mg PO DAILYP PRN (Reason: Edema) Qty: 30 1RF clonidine HCl 0.1 mg tablet 0.1 mg PO BID Qty: 60 0RF sulfamethoxazole-trimethoprim 400-80 mg tablet 1 tab PO DAILY 30 Days Qty: 30 2RF dicyclomine 10 mg capsule 10 mg PO TIDP PRN (Reason: abdominal pain) ciclopirox 0.77 % gel 1 applic topical DAILY Rx Instructions: Apply daily to affected toenail. Smooth with emery board weekly. tizanidine 4 mg tablet 4 mg PO TID levetiracetam 500 mg tablet 500 mg PO BID cefdinir 300 mg capsule 300 mg PO BID 4 Days Qty: 8 0RF Referrals Follow up/Referrals: Connor Gomez MD [Primary Care Provider, [facility]] - See instructions Clinical Impressions Clinical Impression: Hypotension, Altered mental status, Polypharmacy, Incidental pulmonary nodule Print Language Print Language: French Discharge ED Provider: Dulce Maria Barbosa General Adult HPI General Chief complaint: Weakness Stated complaint: low blood pressure, nausea, confusion Time Seen by Provider: 02/19/25 23:20 Mode of Arrival: Ambulatory Source of Information: Patient Description of Symptoms (Recalled from ER Triage Doc. by RN): Patient states she began having acute confusion today. States she just felt off, states it became harder to read than normal. Patient states she usually has intermittant confusion associated with acute BP changes. States she went to take her BP and was 70s/40s. States she has been admitted several times for hypertension and blood pressure issues. Patient is A&Ox4, GCS 15. Patient has normal speak and cognition as presented in ER. Patient has no deficits. History of Present Illness HPI narrative: 74-year-old female presents to the ER with her concern for low blood pressure and brief episode of altered mental status. Patient reports a few weeks ago she had an episode of altered mental status, and had a seizure ended up being diagnosed with pres. Review of records demonstrates she was initially admitted to this facility but ended up being transferred to [facility] for continued management and workup. Patient states since that time she has had a few episodes of transient low blood pressure, transient high blood pressure, and occasionally altered mental status associated with these changes. She is a poor historian as is her at bedside. She states earlier this evening she was reading a book and started to feel funny and noticed she was not actually comprehending what she was reading. She checked her blood pressure at home and it was in the 70s so she came to the ER for further evaluation. Patient states she takes multiple medications for high blood pressure and has been taking all of them, including reporting taking her clonidine. She also takes multiple narcotic medications and is currently requesting oxycodone for her left shoulder pain which is chronic and at baseline. She states she has been admitted for blood pressure problems recently and has had multiple changes to her medications. On arrival to the ER she is alert, oriented, GCS 15, no neurologic deficits, normal speech. Denies any active nausea or vomiting, no abdominal pain, no chest pain or difficulty breathing. No numbness, tingling, or weakness anywhere. States vision is at baseline. Related Data Home Medications ?Medication ?Instructions ?Recorded ?Confirmed aripiprazole 2 mg tablet 2 mg PO DAILY 05/09/24 02/09/25 ciclopirox 0.77 % topical gel 1 applic topical DAILY 11/30/24 02/09/25 dicyclomine 10 mg capsule 10 mg PO TIDP PRN abdominal pain 11/30/24 02/09/25 estradiol 0.25 mg/0.25 gram (0.1 1 packet transdermal DAILY 01/08/25 02/09/25 %) transdermal gel packet tizanidine 4 mg tablet 4 mg PO TID muscle spasticity 02/05/25 02/09/25 levetiracetam 500 mg tablet 500 mg PO BID 02/06/25 02/09/25 acyclovir 400 mg tablet 400 mg PO BID 02/09/25 02/09/25 hydromorphone 4 mg tablet 4 mg PO BID PRN 02/09/25 02/09/25 Previous Rx's ?Medication ?Instructions ?Recorded amitriptyline 50 mg tablet 50 mg PO HS #30 tabs 03/04/24 ergocalciferol (vitamin D2) 1,250 1,250 mcg PO WEEKLY #4 caps 07/07/24 mcg (50,000 unit) capsule atorvastatin 40 mg tablet 40 mg PO DAILY #90 tabs 10/16/24 diphenoxylate-atropine 2.5 1 tab PO TID 90 days #270 tabs 11/26/24 mg-0.025 mg tablet nystatin 100,000 unit/gram topical 1 applic topical BID Rash #30 grams 01/08/25 cream amlodipine 5 mg tablet 5 mg PO HS #90 tabs 01/11/25 Held on 02/06/25. Instructions: Resume on 02/20/25. Your blood pressures were low on arrival. Please hold this medication until follow-up with PCP. levothyroxine 25 mcg tablet 25 mcg PO DAILY #90 tabs 01/11/25 losartan 50 mg tablet 75 mg (1.5 x 50 mg) PO DAILY #135 01/11/25 Held on 02/06/25. tabs Instructions: Resume on 02/20/25. Hold this medication until blood pressure is consistently above 140/90 at home. cefdinir 300 mg capsule 300 mg PO BID 4 days #8 caps 02/06/25 duloxetine 60 mg capsule,delayed 60 mg PO BID #60 caps 02/09/25 release hydromorphone 4 mg tablet 4 mg PO Q4HP PRN Severe Pain 02/09/25 (Scale Score 7-10) #60 tabs oxycodone 10 mg tablet 10 mg PO Q4HP PRN Moderate Pain 02/09/25 (Scale Score 5-6) #180 tabs furosemide 40 mg tablet 40 mg PO DAILYP PRN Edema #30 tabs 02/11/25 clonidine HCl 0.1 mg tablet 0.1 mg PO BID #60 tabs 02/13/25 sulfamethoxazole 400 1 tab PO DAILY 30 days #30 tabs 02/13/25 mg-trimethoprim 80 mg tablet Allergies Allergy/AdvReac Type Severity Reaction Status Date / Time ciprofloxacin (From Cipro) Allergy Intermediate Muscle Pain Verified 02/09/25 14:05 levofloxacin (From Levaquin) AdvReac Rash Verified 02/09/25 14:05 [facility] Disclaimer: The information contained in this section may have been updated after the patient was seen, as this information can be updated by other users. Medical History (Updated 02/20/25 @ 01:51 by Dulce Maria Barbosa MD) Posterior reversible encephalopathy syndrome Abdominal pain Injury of right toe Hypomagnesemia Enteropathogenic Escherichia coli infection Gastroenteritis Increased ileostomy output Vomiting Hypertensive urgency Tailor's bunion of both feet Class 1 obesity Osteoarthritis of feet, bilateral Hammertoes of both feet Acquired hallux valgus of both feet Painful orthopaedic hardware Onychomycosis Head trauma Memory loss Hand pain, right Fall Acute head trauma Vaginal atrophy Functional abdominal pain syndrome Exocrine pancreatic insufficiency Bloating Generalized abdominal pain Asthma At risk for osteoporosis Ankle fracture, lateral malleolus, closed Obstruction of small intestine after surgical procedure Postoperative abscess Chronic UTI Obesity Anemia Left foot pain Right foot injury Chronic kidney disease TIP (acute kidney injury) Systolic murmur Bowel wall thickening Ischemic bowel disease Hypertension Paroxysmal atrial fibrillation Aftercare following bilateral knee joint replacement surgery C. difficile diarrhea Colostomy in place Perforated sigmoid colon Elevated liver enzymes Ileus Abnormal electrocardiogram [ECG] [EKG] Abdominal pain Hypothyroidism IBS (irritable bowel syndrome) HLD (hyperlipidemia) Hypokalemia Hypokalemia due to loss of potassium Surgical History History of bunionectomy of both great toes Ileostomy status H/O ileostomy History of total right hip replacement History of arthroscopy of left shoulder Family History Other Anemia Asthma Cancer Hyperlipidemia Social History (Updated 02/09/25 @ 13:55 by ROSEANNA Palma) Smoking Status: Never smoker second hand exposure: No alcohol intake: never current occupational status: retired Travel in the last 8 weeks?: None household members: spouse housing: house marital status: current occupational exposures/hazards: No caffeine: No Have you lived/traveled outside [place] in past 30 days?: No Contact w/someone who lives/traveled outside [place] past 30 days?: No Exposure to someone with infectious disease in past 14 days?: No Do you have a fever (greater than 100.4 F or 38 C)?: No Have you tested positive for COVID-19?: No Exposed to someone with COVID-19 in past 14 days?: No Do you have a sore throat?: No Do you have a cough?: No Do you have any weakness?: Yes Do you have any diarrhea?: No Are you experiencing any unusual bleeding?: No Do you have any muscle aches/pain?: No Do you have any abdominal pain?: Yes Are you experiencing loss of taste or smell?: No Other Medical History Have you received the Flu Vaccine for this season: No Have you received the Pneumonia Vaccine: No ROS Obtained: Yes Systems reviewed as appropriate & no additional complaints except as documented Per HPI Physical Exam General General appearance: alert and in no apparent distress Head Head exam: atraumatic and normocephalic Eye Eye exam: Present PERRL and EOMI; Absent jaundice or conjunctival injection ENT ENT exam: Present mucous membranes moist Neck Neck exam: Present normal inspection and full ROM Chest Chest inspection: Present symmetric chest wall rise Respiratory Respiratory exam: Present normal lung sounds bilaterally; Absent respiratory distress, wheezes or stridor Cardiovascular Cardiovascular exam: Present regular rate and normal rhythm Abdominal Exam Abdominal exam: Present soft; Absent distention, tenderness, guarding or rebound Extremities Exam Extremities exam: Present full ROM, normal capillary refill and edema (+1 bilateral lower extremity pitting edema); Absent calf tenderness Neurological Exam Neurological exam: Present alert, oriented X3 and other (NIH 0); Absent motor sensory deficit Psychiatric Psychiatric exam: Present normal affect and normal mood Skin Skin exam: Present warm and dry Medical Decision Making Medical Records Medical records reviewed: Yes I reviewed the patient's medical records. Screening: Per USPSTF and CDC recommendations, given the prevalence of disease in our region, it is our hospital?s policy to screen for HIV and viral Hepatitis for all patients aged 18 and over and those with ongoing risk factors. MR Comment: See HPI Beto Inquiry Pt receiving controlled substance: No Vital Signs: 02/19/25 23:35 02/19/25 23:40 Temperature 97.9 F Temperature Source Oral Pulse Rate [Left] 64 Pulse Rate [Orthostatic Lying] 71 Pulse Rate [Orthostatic Sitting] 77 Pulse Rate [Orthostatic Standing] 72 Respiratory Rate 18 Blood Pressure [Orthostatic Lying] 100/50 L Blood Pressure [Orthostatic Sitting] 110/63 Blood Pressure [Orthostatic Standing] 101/60 L Blood Pressure [Right Arm] 105/79 L Blood Pressure Mean [Right Arm] 87 02 Sat by Pulse Oximetry 98 Oxygen Delivery Method Room Air Lab Data Lab Results 02/20/25 00:15: WBC 11.1 H, RBC 3.31 L, Hgb 9.6 L, Hct 30.0 L, MCV 90.6, MCH 29.0, MCHC 32.0, RDW 13.2, Plt Count 290, MPV 9.3, Neut % (Auto) 77.0, Lymph % (Auto) 12.3, Phillips % (Auto) 5.9, Eos % (Auto) 4.2, Baso % (Auto) 0.4, Neut # (Auto) 8.6 H, Lymph # (Auto) 1.4, Phillips # (Auto) 0.7, Eos # (Auto) 0.5 H, Baso # (Auto) 0.0, PT 10.6, INR 0.95, Sodium 131 L, Potassium 4.1, Chloride 99, Carbon Dioxide 25, Anion Gap 11.1, BUN 34 H, Creatinine 2.00 H, Estimated Creat Clear 30, Estimated GFR 24 L, Est GFR ( Amer) 30 L, Glucose 78, Calcium 8.7, Total Bilirubin 0.3, AST 21, ALT 11 L, Alkaline Phosphatase 97, Troponin I < 0.01, NT-Pro-B Natriuret Pep 74.8, Total Protein 6.8, Albumin 3.9, Globulin 2.9, Albumin/Globulin Ratio 1.3 02/20/25 00:15 02/20/25 00:15 Orders (Tests/Meds): ED MEDICATIONS Generic Name Dose Route Start Last Admin Trade Name Rhiannon PRN Reason Stop Dose Admin Nitroglycerin 0.4 mg 02/19/25 23:38 Nitroglycerin 0.4mg Sl Tablet SL 02/20/25 23:38 [id number] PRN Chest Pain Discontinued Medications Generic Name Dose Route Start Last Admin Trade Name Rhiannon PRN Reason Stop Dose Admin Aspirin 324 mg 02/19/25 23:38 02/20/25 00:25 Aspirin 81mg Chewable Tablet PO 02/19/25 23:39 324 mg ONCE ONE Administration Lactated Ringer's 1,000 mls @ 999 mls/hr 02/19/25 23:39 02/20/25 00:28 Lactated Ringer's 1000 Ml Bag IV 02/20/25 00:39 999 mls/hr .Q1H1M ONE Administration Lactated Ringer's 500 mls @ 999 mls/hr 02/20/25 01:24 Lactated Ringer's 500ml IV 02/20/25 01:54 .Q31M ONE Iopamidol 150 ml 02/20/25 01:09 02/20/25 01:10 Iopamidol-370 (76%);100ml Bottle IV 02/20/25 01:10 150 ml ONCE ONE Administration Ondansetron HCl 4 mg 02/19/25 23:40 02/20/25 00:26 Ondansetron 4mg/2ml Vial IV 02/19/25 23:41 4 mg ONCE ONE Administration Oxycodone HCl 10 mg 02/19/25 23:39 02/20/25 00:26 Oxycodone 5mg Immediate Release Tablet PO 02/19/25 23:40 10 mg ONCE ONE Administration Sodium Chloride 50 ml 02/20/25 01:09 02/20/25 01:10 0.9 % Sodium Chloride 50 Ml Vial IV 02/20/25 01:10 50 ml ONCE ONE Administration Sodium Chloride 10 ml 02/20/25 01:09 02/20/25 01:10 Sodium Chloride 0.9% 10ml Syr (Rad Only) IV 02/20/25 01:10 10 ml ONCE ONE Administration ORDERS Category Date Time Status CT angio chest PE protocol Stat Cat Scan 02/19/25 23:[address] angio head Stat Cat Scan 02/19/25 23:[address] angio neck Stat Cat Scan 02/19/25 23:[address] head/brain wo con Stat Cat Scan 02/19/25 23:39 Completed POCUS Point of Care (ER Only) Stat Exams 02/19/25 23:41 Completed Complete Blood Count Auto Diff Stat Lab 02/19/25 23:38 Completed Comprehensive Metabolic Panel Stat Lab 02/19/25 23:38 Completed Free T4 (Free Thyroxine) Stat Lab 02/20/25 00:15 Received NT Pro Brain Natriuretic Pep. Stat Lab 02/19/25 23:38 Completed Prothrombin Time INR Stat Lab 02/19/25 23:38 Completed TSH [Thyroid Stimulating Hormone] Stat Lab 02/20/25 00:15 Received Troponin I Q3H Lab 02/20/25 02:45 Ordered Troponin I Q3H Lab 02/20/25 05:45 Ordered Troponin I Stat Lab 02/19/25 23:38 Completed UDS [Drug Screen,Urine] Stat Lab 02/20/25 01:57 Ordered Urinalysis and Microscopic Stat Lab 02/20/25 01:55 Received Urinalysis and Microscopic Stat Lab 02/20/25 01:57 Ordered Medical Decision Narrative: In summary, this 74-year-old female with comorbidities described in the HPI presents to the emergency department today with episodes of low blood pressure and transient confusion. On initial evaluation patient is hemodynamically stable, afebrile, GCS 15, NIH 0, no neurologic deficits, patient has chronic pain in the left shoulder but no acute abnormalities identified on exam overall. The lowest her blood pressure was in the ER was in the 80s but with adjusting the cuff and retaking it, her pressure was in the upper 90s. Differential diagnosis includes but is not limited to ACS, PE, polypharmacy, orthostatic hypotension, I did consider the possibility of TIA or stroke though I have low suspicion for this especially since patient has an NIH of 0 and her symptoms are consistently associated with blood pressure changes. She is not having any encephalopathy at this time that would be concerning for reoccurrence of PRES though this was also considered as was UTI, electrolyte abnormality, dehydration, among others. Based on these concerns, I ordered hematologic and serum labs, urinalysis, cardiac workup, CT imaging of the head and chest including angiography. ECG personally interpreted demonstrates sinus rhythm, rate 64, normal axis, normal [place] and QTc, no STEMI. Patient received IV fluids for treatment because her blood pressure was not truly hypotensive but was softer than expected for someone with a history of hypertension. She also received a home dose of oxycodone because she was complaining of her left shoulder hurting. Due to self-reported transient altered mental status, I did send the patient for emergent CT imaging to rule out acute intracranial pathology. I did not wait for labs for this because I think the risk of missing or delaying the discovery of acute intracranial pathology outweighs the risks for long-term effects of contrast-induced nephropathy. Labs personally reviewed demonstrate slight leukocytosis, anemia nonactionable, normal platelets, CMP with slightly worsening hyponatremia but not acutely actionable, kidney function is worsened with creatinine 2 from a baseline of 1.1, GFR now 24. Patient is already receiving IV fluids and will receive additional fluids after CT to washout the contrast and limit risk of contrast-induced nephropathy. I believe this will also help with her symptoms. Initial troponin undetectably low less than 0.01 significantly reassuring in the setting of nonischemic ECG CT head personally turbid demonstrates no bleed, mass, or midline shift, see radiology read for final interpretation. I received a phone call from the reading radiologist regarding the CT head, CT angiography head and neck. We reviewed this case and he reports no acute pathology on the studies. I appreciate his interpretations. See radiology reads for full interpretation. CTA PE presented for demonstrates no acute intrathoracic abnormality, no large PE, see radiology read for final interpretation. Radiology read comments on possible underdistention versus thickening of the esophagus, this does not correlate clinically and can be followed up outpatient. There are also a few lung nodules that can be followed up outpatient. The ground glass opacities also do not correlate clinically. Patient was made aware of incidentals. Orthostatics do not demonstrate significant hypotension or tachycardia with positional changes. Patient is asymptomatic at this time. I believe she requires admission to the hospital for evaluation of her blood pressure and transient episodes of altered mental status as well as treatment of TIP. I am highly suspicious for polypharmacy as since patient takes multiple narcotics, multiple blood pressure medications, and has had multiple changes in her medications recently since her diagnosis of PRES and problems with hypo and hypertension. Patient is agreeable to plan for admission. I reach out to the hospitalist, Dell, and discussed this case with him at length. He graciously excepted the patient for admission. She was admitted in stable condition. Critical Care Critical Care Time Critical Care Time: No
[2025-02-20 00:40] LABS: Albumin Level 3.9 g/dl (3.5-5.0); Chloride 99 mmol/L (98-107)
[2025-02-20 00:41] LABS: Hematocrit 30.0 % (37.0-47.0); Hemoglobin 9.6 g/dL (12.2-16.2); Immature Granulocytes % 0.2 %; Mean Corpuscular HGB Conc 32.0 g/dL (31.8-35.4); Mean Corpuscular Hemoglobin 29.0 pg (27.0-31.2); Mean Corpuscular Volume 90.6 fl (81-99); Nucleated Red Blood Cells % 0 %; Platelet Count 290 K/mm3 (142-424); Potassium 4.1 mmoL/L (3.5-5.1); Red Blood Count 3.31 M/mm3 (4.20-5.40); Red Cell Distribution Width-SD 43.9 fL; Sodium 131 mmol/L (136-145); White Blood Count 11.1 K/mm3 (4.8-10.8)
[2025-02-20 00:43] LABS: Alanine Aminotransferase 11 U/L (12-78); Anion Gap 11.1 mEq/L (5-15); Aspartate Amino Transferase 21 U/L (14-36); Blood Urea Nitrogen 34 mg/dl (7-17); Carbon Dioxide 25 mmol/L (22.0-30.0); Creatinine Clearance Estimated 30 mL/min (50-200); Creatinine,Serum 2.00 mg/dl (0.52-1.04); Estimated Glomerular Filt Rate 24 ml/min (>60); GFR (African American) 30 ML/MIN (>60)
[2025-02-20 00:44] LABS: Albumin/Globulin Ratio 1.3 (1.1-1.8); Alkaline Phosphatase 97 U/L (38-126); Bilirubin,Total 0.3 mg/dl (0.2-1.3); Calcium 8.7 mg/dl (8.4-10.2); Globulin 2.9 g/dL (1.3-3.2); Glucose 78 mg/dl (74-100); Total Protein,Serum 6.8 g/dl (6.3-8.2)
[2025-02-20 00:48] LABS: INR 0.95 (0.9-1.1); Prothrombin Time 10.6 seconds (10.1-12.5)
[2025-02-20 00:53] LABS: NT Pro Brain Natriuretic Pep. 74.8 pg/mL (0-125)
[2025-02-20 00:57] LABS: Troponin I < 0.01 ng/ml (0.00-0.034)
[2025-02-20] MEDS: IOPAMIDOL-370 (76%);100ML BOTTLE 150 ML IV (01:10)
[2025-02-20] MEDS: SODIUM CHLORIDE 0.9% 10ML SYR (RAD ONLY) 10 ML IV (01:10)
[2025-02-20] MEDS: 0.9 % SODIUM CHLORIDE 50 ML VIAL IV (01:10)
[2025-02-20 02:00] LABS: Microscopic, Urine URINE MICROSCOPIC (MICROSCOPIC)
[2025-02-20 02:04] LABS: Bilirubin,Urine Negative (Negative); Color,Urine YELLOW (Yellow); Glucose,Urine (UA) Negative (Negative); Ketones,Urine Negative (Negative); Leukocyte Esterase,Urine Negative (Negative); PH,Urine 5.5 (5.0-8.5); Protein,Urine Negative (Negative); Specific Gravity, Urine <= 1.005 (1.005-1.030); Urobilinogen,Urine 0.2 EU/dl (0.2)
[2025-02-20 02:07] LABS: Free T4 (Free Thyroxine) 0.88 ng/dl (0.78-2.19)
[2025-02-20 02:14] VITALS: BP 143/79; PULSE 74; PULSE 75; RESP 16; TEMP 36.6; O2SAT 100; O2SAT 98
[2025-02-20 02:21] LABS: Thyroid Stimulating Hormone 4.68 uIU/mL (0.465-4.68)
[2025-02-20 02:35] VITALS: BP 132/75; PULSE 80; RESP 18; TEMP 35.5; O2SAT 99; BMI 28.9
[2025-02-20 02:39] LABS: Benzodiazepines Screen,Urine Negative ng/ml (<200)
[2025-02-20 02:40] LABS: Amphetamine/Metha Screen,Urine Negative ng/ml (<1000)
[2025-02-20 02:41] LABS: Barbiturates Screen,Urine Negative ng/ml (<200)
[2025-02-20 02:43] LABS: Methadone Screen,Urine Negative ng/ml (<300); Opiate Screen,Urine Positive ng/ml (<300)
[2025-02-20 02:44] LABS: Phencyclidine Screen,Urine Negative ng/ml (<25)
--- NOTE | 2025-02-20 02:47 | P.HP_ITS ---
<Statement entered by Timothy Weiss MD - 02/23/25 11:06> Agree with plan of care as outlined by the TECHNICAL APPLICATIONS SPECIALIST. History of Present Illness *Admission Date: 02/20/25 *Reason for visit:: Low blood pressure *History of present illness: This is a 74-year-old female who has a past medical history significant for posterior reversible encephalopathy syndrome (press), hypertension, anemia, obesity, chronic kidney disease, systolic murmur, ischemic bowel disease, paroxysmal atrial fibrillation, C. difficile, ileostomy placement, IBS, hyperlipidemia, and vitamin D deficiency who presents with a chief complaint of transient altered mental status, confusion, and low blood pressure. Due to patient's symptoms, she presented to the emergency room for evaluation. While in the emergency room, CT scan of the head and neck was negative for any large vessel occlusion, CT scan of the head was negative for any acute intracranial process, however patient's creatinine was mildly elevated from baseline. As a result, patient has been admitted for further management. During my evaluation of the patient, patient states that she was reading a book and felt different. She noticed that she was unable to comprehend what she was reading. She checked her blood pressure and subjectively it was in the 70s systolically. Due to this, patient presented to the emergency room for evaluation. Department mentioning patient was recently admitted for an acute kidney injury she was given IV hydration and discharged home. She is prescribed multiple antihypertensives with multiple opioids to manage her pain. Patient was recently prescribed Keppra for press. She also states that she was taking acyclovir and Bactrim for years and it was recently discontinued on her prior admission. She was concerned that she should still be taking these medications. Patient appears to be around her baseline mentation. She is currently denying any chest pain, lightheadedness, dizziness, fever, chills, rigors, nausea, vomiting, shortness of breath, dyspnea, lateral gaze deficit, blurred vision, diplopia, upper or lower extremity weakness, or diarrhea. Additional pertinent vitals obtained include a white blood cell count 11.1, red blood cell count of 3.31, hemoglobin 9.6, hematocrit of 30, sodium 131, BUN of 34, creatinine of 2, and GFR 30. [facility] Disclaimer: The information contained in this section may have been updated after the patient was seen, as this information can be updated by other users. Medical History (Updated 02/20/25 @ 02:54 by Dell Schroeder APRN) Posterior reversible encephalopathy syndrome Abdominal pain Injury of right toe Hypomagnesemia Enteropathogenic Escherichia coli infection Gastroenteritis Increased ileostomy output Vomiting Hypertensive urgency Tailor's bunion of both feet Class 1 obesity Osteoarthritis of feet, bilateral Hammertoes of both feet Acquired hallux valgus of both feet Painful orthopaedic hardware Onychomycosis Head trauma Memory loss Hand pain, right Fall Acute head trauma Vaginal atrophy Functional abdominal pain syndrome Exocrine pancreatic insufficiency Bloating Generalized abdominal pain Asthma At risk for osteoporosis Ankle fracture, lateral malleolus, closed Obstruction of small intestine after surgical procedure Postoperative abscess Chronic UTI Obesity Anemia Left foot pain Right foot injury Chronic kidney disease TIP (acute kidney injury) Systolic murmur Bowel wall thickening Ischemic bowel disease Hypertension Paroxysmal atrial fibrillation Aftercare following bilateral knee joint replacement surgery C. difficile diarrhea Colostomy in place Perforated sigmoid colon Elevated liver enzymes Ileus Abnormal electrocardiogram [ECG] [EKG] Abdominal pain Hypothyroidism IBS (irritable bowel syndrome) HLD (hyperlipidemia) Hypokalemia Hypokalemia due to loss of potassium Surgical History History of bunionectomy of both great toes Ileostomy status H/O ileostomy History of total right hip replacement History of arthroscopy of left shoulder Family History Other Anemia Asthma Cancer Hyperlipidemia Social History (Updated 02/09/25 @ 13:55 by ROSEANNA Palma) Smoking Status: Never smoker second hand exposure: No alcohol intake: never current occupational status: retired Travel in the last 8 weeks?: None household members: spouse housing: house marital status: current occupational exposures/hazards: No caffeine: No Have you lived/traveled outside [place] in past 30 days?: No Contact w/someone who lives/traveled outside US past 30 days?: No Exposure to someone with infectious disease in past 14 days?: No Do you have a fever (greater than 100.4 F or 38 C)?: No Have you tested positive for COVID-19?: No Exposed to someone with COVID-19 in past 14 days?: No Do you have a sore throat?: No Do you have a cough?: No Do you have any weakness?: Yes Do you have any diarrhea?: No Are you experiencing any unusual bleeding?: No Do you have any muscle aches/pain?: No Do you have any abdominal pain?: Yes Are you experiencing loss of taste or smell?: No Other Medical History Have you received the Flu Vaccine for this season: No Have you received the Pneumonia Vaccine: No Review of Systems Review of Systems Review of systems:: pertinent systems reviewed and negative unless documented b elow Constitutional Constitutional: Reports system reviewed and no additional complaints, except as documented Eyes Eyes: Reports change in vision ENT Ears, Nose, Mouth, and Throat: Reports system reviewed and no additional complaints, except as documented *Cardiovascular Cardiovascular: Reports system reviewed and no additional complaints, except as documented *Respiratory Respiratory: Reports system reviewed and no additional complaints, except as documented *Gastrointestinal Gastrointestinal: Reports system reviewed and no additional complaints, except as documented *Genitourinary Genitourinary: Reports system reviewed and no additional complaints, except as documented *Musculoskeletal Musculoskeletal: Reports system reviewed and no additional complaints, except as documented Integumentary/Breasts Skin/Breast: Reports system reviewed and no additional complaints, except as documented *Neurologic Neurologic: Reports system reviewed and no additional complaints, except as documented Psychiatric Psychiatric: Reports system reviewed and no additional complaints, except as documented Endocrine Endocrine: Reports system reviewed and no additional complaints, except as documented Hematologic/Lymphatic Hematologic/Lymphatic: Reports system reviewed and no additional complaints, except as documented Allergic/Immunologic Allergic/Immunologic: Reports system reviewed and no additional complaints, except as documented Meds Home Medications and Allergies Home Medications ?Medication ?Instructions ?Recorded ?Confirmed ?Type amitriptyline 50 mg tablet 50 mg PO HS #30 tabs 02/09/25 Rx aripiprazole 2 mg tablet 2 mg PO DAILY 05/09/2402/09 History ergocalciferol (vitamin D2) 1,250 1,250 mcg PO WEEKLY #4 caps 07/07/24 02/09/25 Rx mcg (50,000 unit) capsule atorvastatin 40 mg tablet 40 mg PO DAILY #90 tabs 09/3002/09/25 Rx diphenoxylate-atropine 2.5 1 tab PO TID 90 days #270 t abs 11/26/24 02/09/25 Rx mg-0.025 mg tablet ciclopirox 0.77 % topical gel 1 applic topical DAILY 0 11/30/24 02/09/25 History dicyclomine 10 mg capsule 10 mg PO TIDP PRN abdominal pain 11/30/24 02/09/25 History estradiol 0.25 mg/0.25 gram (0.1 1 packet transdermal DAILY 01/08/25 02/09/25 History %) transdermal gel packet nystatin 100,000 unit/gram topical 1 applic topical BI D Rash #30 grams 01/08/25 02/09/25 Rx cream amlodipine 5 mg tablet 5 mg PO HS #90 tabs 01/11/25 02/09/25 Rx Held on 02/06/25. Instructions: Resume on 02/20/25. Your blood pressures were low on arrival. Please hold this medication until follow-up with PCP. levothyroxine 25 mcg tablet 25 mcg PO DAILY #90 tabs 1 02/09/25 Rx losartan 50 mg tablet 75 mg (1.5 x 50 mg) PO DAILY #135 01/11/25 02/09/25 Rx Held on 02/06/25. tabs Instructions: Resume on 02/20/25. Hold this medication until blood pressure is consistently above 140/90 at home. tizanidine 4 mg tablet 4 mg PO TID muscle spasticit y 02/05/25 02/09/25 History cefdinir 300 mg capsule 300 mg PO BID 4 days #8 caps 02/06/25 02/09/25 Rx levetiracetam 500 mg tablet 500 mg PO BID 02/06/2501/24 History acyclovir 400 mg tablet 400 mg PO BID 02/09/2502/09 History duloxetine 60 mg capsule,delayed 60 mg PO BID #60 caps 02/09/25 02/09/25 Rx release hydromorphone 4 mg tablet 4 mg PO BID PRN 02/09/2501/24 History hydromorphone 4 mg tablet 4 mg PO Q4HP PRN Severe Pain 02/09/25 02/09/25 Rx (Scale Score 7-10) #60 tabs oxycodone 10 mg tablet 10 mg PO Q4HP PRN Moderate P ain 02/09/25 02/09/25 Rx (Scale Score 5-6) #180 tabs furosemide 40 mg tablet 40 mg PO DAILYP PRN Edema #3 0 tabs 02/11/25 Rx clonidine HCl 0.1 mg tablet 0.1 mg PO BID #60 tabs Rx sulfamethoxazole 400 1 tab PO DAILY 30 days #30 t abs 02/13/25 Rx mg-trimethoprim 80 mg tablet New Prescriptions to Start Prescriptions: Allergies Allergy/AdvReac Type Severity Reaction Status Date / Time ciprofloxacin (From Cipro) Allergy Intermediate Muscle Pain Verified 02/09/25 14:05 levofloxacin (From Levaquin) AdvReac Rash Verified 02/09/25 14:05 Exam Data for Last 24 hours Vital signs and Labs for Last 24 Hours: Temp Pulse Resp BP Pulse Ox O2 Del Method 97.9 F 80 18 132/75 99 Room Air 02/20/25 02:14 02/20/25 02:35 02/20/25 02:35 02/20/25 02:35 02/20/25 02:35 02/20/25 02:35 Laboratory Results - last 24 hr 02/20/25 00:15: WBC 11.1 H, RBC 3.31 L, Hgb 9.6 L, Hct 30.0 L, MCV 90.6, MCH 29.0, MCHC 32.0, RDW 13.2, Plt Count 290, MPV 9.3, Neut % (Auto) 77.0, Lymph % (Auto) 12.3, [place] % (Auto) 5.9, Eos % (Auto) 4.2, Baso % (Auto) 0.4, Neut # (A uto) 8.6 H, Lymph # (Auto) 1.4, [place] # (Auto) 0.7, Eos # (Auto) 0.5 H, Baso # (Auto) 0.0, PT 10.6, INR 0.95, Sodium 131 L, Potassium 4.1, Chloride 99, Carbon Dioxide 25, Anion Gap 11.1, BUN 34 H, Creatinine 2.00 H, Estimated Creat Clear 30, Estimated GFR 24 L, Est GFR ( Amer) 30 L, Glucose 78, Calcium 8.7, Total Bilirubin 0.3, AST 21, ALT 11 L, Alkaline Phosphatase 97, Troponin I < 0.01, NT-Pro-B Natriuret Pep 74.8, Total Protein 6.8, Albumin 3.9, Globulin 2.9, Albumin/Globulin Ratio 1.3, TSH 4.68, Free T4 0.88 02/20/25 01:55: Urine Color Yellow, Urine Appearance Clear, Urine pH 5.5, Ur Specific [place] <= 1.005, Urine Protein Negative, Urine Glucose (UA) Negative, Urine Ketones Negative, Urine Blood Negative, Urine Nitrate Negative, Urine Bilirubin Negative, Urine Urobilinogen 0.2, Ur Leukocyte Esterase Negative, Urine Opiates Screen Positive H, Urine Methadone Screen Negative, Ur Barbituates Screen Negative, Ur Phencyclidine Scrn Negative, Ur Amphetamines Screen Negative, U Benzodiazepines Scrn Negative, Urine Cocaine Screen Negative, U Marijuana (THC) Screen Negative I & O for Last 24 hours: Intake & Output 02/17/25 02/18/25 02/19/25 02/20/25 23:59 23:59 23:59 23:59 Weight 74.843 kg 74.162 kg Constitutional Constitutional: no acute distress and cooperative *Routine HEENT Exam Head: Present normocephalic and atraumatic Eye: Present EOMI and PERRL ENT: Present mucous membranes moist *Routine Neck Exam Neck: Present supple, full ROM and trachea midline *Routine Respiratory Exam Respiratory: Present CTA bilaterally, diminished air movement, normal respiratory effort, able to speak in complete sentences and symmetric chest movement *Routine Cardiovascular Exam Cardiovascular: Present RRR, Normal S1 and Normal S2 *Routine Abdominal Exam Abdominal: Present soft, normoactive bowel sounds and ostomy *Routine Rectal Exam Rectal:: deferred *Routine Genitalia Exam Genitalia:: deferred *Routine Extremities Exam Extremities: Present full ROM, pulses intact and normal capillary refill Routine Back/Spine/Pelvis Exam Back/Spine: Present full ROM *Routine Skin Exam Skin: Present intact, dry and warm *Routine Neurological Exam Neurological: Present alert, oriented X3, CN II-XII intact, moving all extremities and normal speech Routine Psychiatric Exam Psychiatric: Present normal affect, normal thought process, cooperative, good insight and good judgment H&P: Result Impressions 74-year-old female presents with altered mental status that was transient and low blood pressure there is a high concern for polypharmacy Assessment and Plan *Assessment and plan (1) Hypotension: Status: Acute Qualifiers: Hypotension type: hypotension due to drug Qualified Code(s): I95.2 - Hypotension due to drugs Category: Medical Code(s): I95.9 - Hypotension, unspecified (2) Altered mental status: Status: Acute Qualifiers: Altered mental status type: unspecified Qualified Code(s): R41.82 - Altered mental status, unspecified Category: Medical Code(s): R41.82 - Altered mental status, unspecified (3) Polypharmacy: Status: Acute Category: Medical Code(s): Z79.899 - Other m[facility] (current) drug therapy (4) Posterior reversible encephalopathy syndrome: Status: Acute Category: Medical Code(s): I67.83 - Posterior reversible encephalopathy syndrome (5) Acute kidney injury superimposed on CKD: Status: Acute Category: Medical Code(s): N17.9 - Acute kidney failure, unspecified; N18.9 - Chronic kidney disease, unspecified Plan Assessment: Hypotension Polypharmacy Acute kidney injury Altered mental status: Most likely due to toxic metabolic encephalopathy; improved -Currently have low suspicion of stroke patient has no focal weakness - If she has another episode of altered mental status, will consider MRI of the brain without contrast - Blood pressure is currently stable - Patient is currently prescribed an ARB, Dilaudid, oxycodone, Lasix, amlodipine, and clonidine for management of blood pressure and pain - Patient's multiple medications may be leading to low blood pressure and altered mental status most likely due to poor perfusion from low blood pressure - Patient's acute kidney injury is most likely due to hypoperfusion to the kidneys - Baseline creatinine is 1.10 - Will give gentle IV hydration of LR at 125 - Patient's creatinine improved with IV hydration on last admission hopefully it will recover in the same fashion - Patient has had episodes of high and low blood pressure. She is a complex case is hard to ensure delicate balance Posterior reversible encephalopathy syndrome - Monitor for seizure activity - Will continue Keppra once med rec is updated Plan: Admit patient to the MedSurg unit Orthostatics were normal Cardiac diet CBC/CMP daily 40 mg Lovenox subcu daily for DVT prophylaxis 4 mg Zofran IV push every 8 hours for nausea Full code I will discussed this case with attending physician Dr. Weiss and I look forward to more input
[2025-02-20] MEDS: LACTATED RINGERS 1000ML 1,000 ML 125 ML IV (02:55)
--- NOTE | 2025-02-20 03:02 | PC.NURSE ---
When asking patient med rec and list of medications, patient with each medications continues to say well I was taking that but somebody told me to stop or I was on that for years but im not sure what I take . Leaving med rec for pharmacy to complete. Patient states when she was at [facility] [place], they discontinued several meds, but she continued to take those because she didnt know.
[2025-02-20 03:47] LABS: Troponin I < 0.01 ng/ml (0.00-0.034)
[2025-02-20 04:00] VITALS: BP 104/55; PULSE 64; RESP 16; TEMP 35.8; O2SAT 98; BMI 28.1
[2025-02-20] MEDS: HYDROMORPHONE HCL 2 MG TABLET PO ×2 (05:28→10:10)
[2025-02-20 07:37] LABS: Troponin I < 0.01 ng/ml (0.00-0.034)
[2025-02-20 07:50] VITALS: BP 155/73; PULSE 89; RESP 18; TEMP 36.7; O2SAT 100
--- NOTE | 2025-02-20 08:13 | HMH.PHAINT1 ---
Pharmacy Intervention Comments: HOME MEDICATION LIST VERIFIED USING LIST FROM MOST RECENT DISCHARGE FROM THIS FACILITY
[2025-02-20 08:15] VITALS: O2SAT 100
[2025-02-20 08:42] LABS: Anion Gap 8.3 mEq/L (5-15); Blood Urea Nitrogen 29 mg/dl (7-17); Calcium 8.9 mg/dl (8.4-10.2); Carbon Dioxide 22 mmol/L (22.0-30.0); Chloride 103 mmol/L (98-107); Creatinine Clearance Estimated 36 mL/min (50-200); Creatinine,Serum 1.60 mg/dl (0.52-1.04); Estimated Glomerular Filt Rate 32 ml/min (>60); GFR (African American) 38 ML/MIN (>60); Glucose 84 mg/dl (74-100); Potassium 4.3 mmoL/L (3.5-5.1); Sodium 129 mmol/L (136-145)
--- NOTE | 2025-02-20 09:26 | HMH.PTEV ---
Physical Therapy Evaluation Rehab PT IP Evaluation Start: 02/20/25 03:10 Freq: ONCE Status: Active Protocol: Document 02/20/25 09:23 ANGIE (Rec: 02/20/25 09:25 ANGIE [id number]) Subjective/History History History Per H&P: This is a 74-year-old female who has a past medical history significant for posterior reversible encephalopathy syndrome (press), hypertension, anemia, obesity, chronic kidney disease, systolic murmur, ischemic bowel disease, paroxysmal atrial fibrillation, C. difficile, ileostomy placement, IBS, hyperlipidemia, and vitamin D deficiency who presents with a chief complaint of transient altered mental status, confusion, and low blood pressure. Due to patient's symptoms, she presented to the emergency room for evaluation. While in the emergency room, CT scan of the head and neck was negative for any large vessel occlusion, CT scan of the head was negative for any acute intracranial process, however patient's creatinine was mildly elevated from baseline. As a result, patient has been admitted for further management. During my evaluation of the patient, patient states that she was reading a book and felt different. She noticed that she was unable to comprehend what she was reading. She checked her blood pressure and subjectively it was in the 70s systolically. Due to this, patient presented to the emergency room for evaluation. Department mentioning patient was recently admitted for an acute kidney injury she was given IV hydration and discharged home. She is prescribed multiple antihypertensives with multiple opioids to manage her pain. Patient was recently prescribed Keppra for press. She also states that she was taking acyclovir and Bactrim for years and it was recently discontinued on her prior admission. She was concerned that she should still be taking these medications. Patient appears to be around her baseline mentation. She is currently denying any chest pain, lightheadedness, dizziness, fever, chills, rigors, nausea, vomiting, shortness of breath, dyspnea, lateral gaze deficit, blurred vision, diplopia, upper or lower extremity weakness, or diarrhea. Additional pertinent vitals obtained include a white blood cell count 11.1, red blood cell count of 3.31, hemoglobin 9.6, hematocrit of 30, sodium 131, BUN of 34, creatinine of 2, and GFR 30. Subjective Subjective Pt reports she lives with her and is IND with all mobility at baseline. Pt does not use an AD. [facility] How much help from another person do you currently need... Turning from your None back to your side while in a flat bed without using bedrails? Moving from lying on None back to sitting on the side of a flat bed without using bedrails? Moving to and from a None bed to a chair ( including a wheelchair)? Standing up from a None chair using your arms? (e.g., wheelchair, bedside chair) Walking in hospital None room? Climbing 3-5 steps None with a railing? Mobility Score 24 Mobility Level [facility] Mobility 8 Walk 250 feet or more Mobility Calculator Rehab PT IP Eval Objective Appearance Patient Behavior Appropriate,Cooperative Patient Orientation Person Difficulty following none instructions Speech Pattern Clear Ambulation Patient Able to Yes Ambulate Ambulation Observation IP General Gait No Deviations/Normal Pattern Observation Ambulation Distance 50 (feet) Ambulation Assistive None Device Ambulation Ability Independent Balance Ability to Arise Able, uses arms to help Sitting Balance Steady, safe Standing Balance Steady, wide stance Dynamic Sitting Good Balance Ability Dynamic Standing Good Balance Ability Transfers Bed Transfer Ability Independent Sit to Stand Bed Independent Transfer Ability Rehab PT IP prob,goals,plan Problems Date of Evaluation: 02/20/25 Rehab Potential Rehab Potential Innapropriate for Skilled Therapy Discharge Plan PT Discharge Plan Pt is IND with mobility and not appropriate for skilled PT at this time. Eval Complexity Eval Charge Codes 98255 - Moderate Complexity PHYSICIAN CERTIFICATION: I certify the specified therapy services for Farrahernestina Atkinson are required, authorized, and reviewed every 30 days.
--- NOTE | 2025-02-20 09:49 | HMH.OTEV ---
OT Evaluation Rehab OT IP Evaluation Start: 02/20/25 03:10 Freq: ONCE Status: Active Protocol: Document 02/20/25 09:47 GEORGES (Rec: 02/20/25 09:49 [id number] Rehab OT IP Assessment Subjective History Per H&P: This is a 74-year-old female who has a past medical history significant for posterior reversible encephalopathy syndrome (press), hypertension, anemia, obesity, chronic kidney disease, systolic murmur, ischemic bowel disease, paroxysmal atrial fibrillation, C. difficile, ileostomy placement, IBS, hyperlipidemia, and vitamin D deficiency who presents with a chief complaint of transient altered mental status, confusion, and low blood pressure. Due to patient's symptoms, she presented to the emergency room for evaluation. While in the emergency room, CT scan of the head and neck was negative for any large vessel occlusion, CT scan of the head was negative for any acute intracranial process, however patient's creatinine was mildly elevated from baseline. As a result, patient has been admitted for further management. During my evaluation of the patient, patient states that she was reading a book and felt different. She noticed that she was unable to comprehend what she was reading. She checked her blood pressure and subjectively it was in the 70s systolically. Due to this, patient presented to the emergency room for evaluation. Department mentioning patient was recently admitted for an acute kidney injury she was given IV hydration and discharged home. She is prescribed multiple antihypertensives with multiple opioids to manage her pain. Patient was recently prescribed Keppra for press. She also states that she was taking acyclovir and Bactrim for years and it was recently discontinued on her prior admission. She was concerned that she should still be taking these medications. Patient appears to be around her baseline mentation. She is currently denying any chest pain, lightheadedness, dizziness, fever, chills, rigors, nausea, vomiting, shortness of breath, dyspnea, lateral gaze deficit, blurred vision, diplopia, upper or lower extremity weakness, or diarrhea. Additional pertinent vitals obtained include a white blood cell count 11.1, red blood cell count of 3.31, hemoglobin 9.6, hematocrit of 30, sodium 131, BUN of 34, creatinine of 2, and GFR 30. Subjective Prior to being in the hospital, pt lived at home with her . Pt claims she is independent with all functional transfers without AE use. Pt also reports she is independent with all ADLS and IADLs. She is unable to drive at this time due to neurologist request due to continued blood pressure issues. Pt's is home to assist as needed. Objective Patient Orientation Person,Place,Birthday Right Upper WFL Extremity Gross ROM Left Upper Extremity WFL Gross ROM Bed Mobility bed mobility-scooting,bed mobility - supine/sit Assist Level Supervision/Stand by Transfer Training Sit/Stand Transfer Assist Level Supervision/Stand by Lower Body Dressing Standby Assistance Ability Overall Commode/ Standby Assistance Toilet Transfer Ability Commode/Toilet Sit to/from Ambulatory Transfer Technique Rehab OT IP prob,goals,plan Problems Date of Evaluation: 02/20/25 Rehab Potential Rehab Potential Innapropriate for Skilled Therapy Discharge Plan OT Discharge Plan Pt appears to be at her baseline at this time for functional transfers and ADL independence. Pt can return home once she is medically stable per physician. Eval Complexity Eval Charge Codes 88390 - Moderate Complexity PHYSICIAN CERTIFICATION: I certify the specified therapy services for Farrah Atkinson are required, authorized, and reviewed every 30 days.
--- NOTE | 2025-02-20 10:53 | EXP.DC.SUM ---
General Admission date:: 02/20/25 HPI HPI HPI: This is a 74-year-old female who has a past medical history significant for posterior reversible encephalopathy syndrome (press), hypertension, anemia, obesity, chronic kidney disease, systolic murmur, ischemic bowel disease, paroxysmal atrial fibrillation, C. difficile, ileostomy placement, IBS, hyperlipidemia, and vitamin D deficiency who presents with a chief complaint of transient altered mental status, confusion, and low blood pressure. Due to patient's symptoms, she presented to the emergency room for evaluation. While in the emergency room, CT scan of the head and neck was negative for any large vessel occlusion, CT scan of the head was negative for any acute intracranial process, however patient's creatinine was mildly elevated from baseline. As a result, patient has been admitted for further management. During my evaluation of the patient, patient states that she was reading a book and felt different. She noticed that she was unable to comprehend what she was reading. She checked her blood pressure and subjectively it was in the 70s systolically. Due to this, patient presented to the emergency room for evaluation. Department mentioning patient was recently admitted for an acute kidney injury she was given IV hydration and discharged home. She is prescribed multiple antihypertensives with multiple opioids to manage her pain. Patient was recently prescribed Keppra for press. She also states that she was taking acyclovir and Bactrim for years and it was recently discontinued on her prior admission. She was concerned that she should still be taking these medications. Patient appears to be around her baseline mentation. She is currently denying any chest pain, lightheadedness, dizziness, fever, chills, rigors, nausea, vomiting, shortness of breath, dyspnea, lateral gaze deficit, blurred vision, diplopia, upper or lower extremity weakness, or diarrhea. Additional pertinent vitals obtained include a white blood cell count 11.1, red blood cell count of 3.31, hemoglobin 9.6, hematocrit of 30, sodium 131, BUN of 34, creatinine of 2, and GFR 30. Hospital Course Hospital Course Hospital Course: Farrah Atkinson is a 74-year-old female with a medical history of hypertension, chronic pain syndrome who presented with weakness and was admitted for hypotension, TIP. Hypotension and TIP resolved with IV fluid resuscitation. Patient takes losartan, amlodipine, clonidine, Lasix for hypertension in addition to Dilaudid, hydrocodone for chronic pain syndrome. Patient wanted to wean off clonidine as it is not helping much for her anxiety, also advised patient to hold off on losartan and restart amlodipine 10 mg when SBP greater than 150 at home. Patient agreeable to this plan. She will follow-up with PCP for further evaluation and management. Total time spent on discharge: 32 minutes on chart review, counseling, documentation, and direct care with patient. Exam Data for Last 24 hours Vital signs and Labs for Last 24 Hours: Temp Pulse Resp BP Pulse Ox O2 Del Method 98.0 F 89 18 155/73 H 100 Room Air 02/20/25 07:50 02/20/25 07:50 02/20/25 07:50 02/20/25 07:50 02/20/25 08:15 02/20/25 09:10 Laboratory Results - last 24 hr 02/20/25 00:15: WBC 11.1 H, RBC 3.31 L, Hgb 9.6 L, Hct 30.0 L, MCV 90.6, MCH 29.0, MCHC 32.0, RDW 13.2, Plt Count 290, MPV 9.3, Neut % (Auto) 77.0, Lymph % (Auto) 12.3, Carter % (Auto) 5.9, Eos % (Auto) 4.2, Baso % (Auto) 0.4, Neut # (Auto) 8.6 H, Lymph # (Auto) 1.4, Carter # (Auto) 0.7, Eos # (Auto) 0.5 H, Baso # (Auto) 0.0, PT 10.6, INR 0.95, Sodium 131 L, Potassium 4.1, Chloride 99, Carbon Dioxide 25, Anion Gap 11.1, BUN 34 H, Creatinine 2.00 H, Estimated Creat Clear 30, Estimated GFR 24 L, Est GFR ( Amer) 30 L, Glucose 78, Calcium 8.7, Total Bilirubin 0.3, AST 21, ALT 11 L, Alkaline Phosphatase 97, Troponin I < 0.01, NT-Pro-B Natriuret Pep 74.8, Total Protein 6.8, Albumin 3.9, Globulin 2.9, Albumin/Globulin Ratio 1.3, TSH 4.68, Free T4 0.88 02/20/25 01:55: Urine Color Yellow, Urine Appearance Clear, Urine pH 5.5, Ur Specific [place] <= 1.005, Urine Protein Negative, Urine Glucose (UA) Negative, Urine Ketones Negative, Urine Blood Negative, Urine Nitrate Negative, Urine Bilirubin Negative, Urine Urobilinogen 0.2, Ur Leukocyte Esterase Negative, Urine Opiates Screen Positive H, Urine Methadone Screen Negative, Ur Barbituates Screen Negative, Ur Phencyclidine Scrn Negative, Ur Amphetamines Screen Negative, U Benzodiazepines Scrn Negative, Urine Cocaine Screen Negative, U Marijuana (THC) Screen Negative 02/20/25 02:55: Troponin I < 0.01 02/20/25 07:00: Sodium 129 L, Potassium 4.3, Chloride 103, Carbon Dioxide 22, Anion Gap 8.3, BUN 29 H, Creatinine 1.60 H, Estimated Creat Clear 36, Estimated GFR 32 L, Est GFR ( Amer) 38 L D, Glucose 84, Calcium 8.9, Troponin I < 0.01 I & O for Last 24 hours: Intake & Output 02/17/25 02/18/25 02/19/25 02/20/25 23:59 23:59 23:59 23:59 Intake Total 2051. / Output Total 0 / 0 Balance / Weight 74.843 kg 72.162 kg Results Data Completed and Pending Labs on day of discharge: Labs from last 24 hours 02/20/25 02/20/25 02/20/25 07:00 02:55 01:55 WBC RBC Hgb Hct MCV MCH MCHC RDW Plt Count MPV Neut % (Auto) Lymph % (Auto) Carter % (Auto) Eos % (Auto) Baso % (Auto) Neut # (Auto) Lymph # (Auto) Carter # (Auto) Eos # (Auto) Baso # (Auto) PT INR Sodium 129 L Potassium 4.3 Chloride 103 Carbon Dioxide 22 Anion Gap 8.3 BUN 29 H Creatinine 1.60 H Estimated Creat Clear 36 Estimated GFR 32 L Est GFR ( Amer) 38 L D Glucose 84 Calcium 8.9 Total Bilirubin AST ALT Alkaline Phosphatase Troponin I < 0.01 < 0.01 NT-Pro-B Natriuret Pep Total Protein Albumin Globulin Albumin/Globulin Ratio TSH Free T4 Urine Color Yellow Urine Appearance Clear Urine pH 5.5 Ur Specific [place] <= 1.005 Urine Protein Negative Urine Glucose (UA) Negative Urine Ketones Negative Urine Blood Negative Urine Nitrate Negative Urine Bilirubin Negative Urine Urobilinogen 0.2 Ur Leukocyte Esterase Negative Urine Opiates Screen Positive H Urine Methadone Screen Negative Ur Barbituates Screen Negative Ur Phencyclidine Scrn Negative Ur Amphetamines Screen Negative U Benzodiazepines Scrn Negative Urine Cocaine Screen Negative U Marijuana (THC) Screen Negative 02/20/25 00:15 WBC 11.1 H RBC 3.31 L Hgb 9.6 L Hct 30.0 L MCV 90.6 MCH 29.0 MCHC 32.0 RDW 13.2 Plt Count 290 MPV 9.3 Neut % (Auto) 77.0 Lymph % (Auto) 12.3 Carter % (Auto) 5.9 Eos % (Auto) 4.2 Baso % (Auto) 0.4 Neut # (Auto) 8.6 H Lymph # (Auto) 1.4 Carter # (Auto) 0.7 Eos # (Auto) 0.5 H Baso # (Auto) 0.0 PT 10.6 INR 0.95 Sodium 131 L Potassium 4.1 Chloride 99 Carbon Dioxide 25 Anion Gap 11.1 BUN 34 H Creatinine 2.00 H Estimated Creat Clear 30 Estimated GFR 24 L Est GFR ( Amer) 30 L Glucose 78 Calcium 8.7 Total Bilirubin 0.3 AST 21 ALT 11 L Alkaline Phosphatase 97 Troponin I < 0.01 NT-Pro-B Natriuret Pep 74.8 Total Protein 6.8 Albumin 3.9 Globulin 2.9 Albumin/Globulin Ratio 1.3 TSH 4.68 Free T4 0.88 Urine Color Urine Appearance Urine pH Ur Specific [place] Urine Protein Urine Glucose (UA) Urine Ketones Urine Blood Urine Nitrate Urine Bilirubin Urine Urobilinogen Ur Leukocyte Esterase Urine Opiates Screen Urine Methadone Screen Ur Barbituates Screen Ur Phencyclidine Scrn Ur Amphetamines Screen U Benzodiazepines Scrn Urine Cocaine Screen U Marijuana (THC) Screen DS: Diagnosis Discharge Diagnosis (1) Hypotension: Status: Acute Code(s): I95.9 - Hypotension, unspecified Qualifiers: Hypotension type: hypotension due to drug Qualified Code(s): I95.2 - Hypotension due to drugs (2) Altered mental status: Status: Acute Code(s): R41.82 - Altered mental status, unspecified Qualifiers: Altered mental status type: unspecified Qualified Code(s): R41.82 - Altered mental status, unspecified (3) Polypharmacy: Status: Acute Code(s): Z79.899 - 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 (4) Posterior reversible encephalopathy syndrome: Status: Acute Code(s): I67.83 - Posterior reversible encephalopathy syndrome (5) Acute kidney injury superimposed on CKD: Status: Acute Code(s): N17.9 - Acute kidney failure, unspecified; N18.9 - Chronic kidney disease, unspecified Meds Home Medications and Allergies Home Medications ?Medication ?Instructions ?Recorded ?Confirmed ?Type aripiprazole 2 mg tablet 2 mg PO DAILY 05/09/24 03/02/25 History ergocalciferol (vitamin D2) 1,250 1,250 mcg PO WEEKLY #4 caps 07/07/24 03/02/25 Rx mcg (50,000 unit) capsule atorvastatin 40 mg tablet 40 mg PO DAILY #90 tabs 10/16/24 03/02/25 Rx ciclopirox 0.77 % topical gel 1 applic topical DAILY 11/30/24 03/02/25 History dicyclomine 10 mg capsule 10 mg PO TIDP PRN abdominal pain 11/30/24 03/02/25 History estradiol 0.25 mg/0.25 gram (0.1 1 packet transdermal DAILY 01/08/25 03/02/25 History %) transdermal gel packet nystatin 100,000 unit/gram topical 1 applic topical BID Rash #30 grams 01/08/25 03/02/25 Rx cream levothyroxine 25 mcg tablet 25 mcg PO DAILY #90 tabs 01/11/25 03/02/25 Rx duloxetine 60 mg capsule,delayed 60 mg PO BID #60 caps 02/09/25 03/02/25 Rx release furosemide 40 mg tablet 40 mg PO DAILYP PRN Edema #30 tabs 02/11/25 03/02/25 Rx oxycodone 10 mg tablet 10 mg PO Q6HP PRN Moderate Pain 02/20/25 03/02/25 Rx (Scale Score 5-6) #180 tabs acyclovir 400 mg tablet 400 mg PO DAILY 03/02/25 03/02/25 History Held on 03/02/25. Instructions: Home Medication placed on hold at Doctor's office amlodipine 5 mg tablet 5 mg PO BID #60 tabs 03/02/25 03/02/25 Rx clonidine HCl 0.1 mg tablet 0.1 mg PO .COMPLEX #60 tabs 03/02/25 03/02/25 Rx diphenoxylate-atropine 2.5 1 tab PO ONCE PRN 03/02/25 History mg-0.025 mg tablet hydralazine 10 mg tablet 10 mg PO Q6H PRN blood pressure 03/02/25 03/02/25 History hydromorphone 4 mg tablet 4 mg PO BID PRN Pain #60 tabs 03/04/25 Rx amitriptyline 50 mg tablet 50 mg PO HS #30 tabs 03/10/25 Rx New Prescriptions to Start Prescriptions: Allergies Allergy/AdvReac Type Severity Reaction Status Date / Time ciprofloxacin (From Cipro) Allergy Intermediate Muscle Pain Verified 03/02/25 09:07 levofloxacin (From Levaquin) AdvReac Rash Verified 03/02/25 09:07 Discharge Plan Disposition Patient Disposition: Home, Self-Care Condition: Fair Follow up Plan Follow up with: Connor Gomez MD [Primary Care Provider, [facility]] - 03/02/25 11:00 am Prescriptions/Medication Reconciliation: Continued aripiprazole 2 mg tablet 2 mg PO DAILY estradiol 0.25 mg/0.25 gram (0.1 %) gel in packet 1 packet transdermal DAILY nystatin 100,000 unit/gram cream 1 applic TOPICAL BID Qty: 30 5RF duloxetine 60 mg capsule,delayed release(DR/EC) 60 mg PO BID Qty: 60 1RF ergocalciferol (vitamin D2) 1,250 mcg (50,000 unit) capsule 1,250 mcg PO WEEKLY Qty: 4 1RF atorvastatin 40 mg tablet 40 mg PO DAILY Qty: 90 3RF levothyroxine 25 mcg tablet 25 mcg PO DAILY Qty: 90 3RF furosemide 40 mg tablet 40 mg PO DAILYP PRN (Reason: Edema) Qty: 30 1RF dicyclomine 10 mg capsule 10 mg PO TIDP PRN (Reason: abdominal pain) ciclopirox 0.77 % gel 1 applic topical DAILY Rx Instructions: Apply daily to affected toenail. Smooth with emery board weekly. Changed oxycodone 10 mg tablet 10 mg PO Q6HP MDD No> 6/day PRN (Reason: Moderate Pain (Scale Score 5-6)) Qty: 180 0RF Discontinued amlodipine 5 mg tablet 5 mg PO HS Qty: 90 3RF losartan 50 mg tablet 75 mg PO DAILY Qty: 135 3RF clonidine HCl 0.1 mg tablet 0.1 mg PO BID Qty: 60 0RF No Action diphenoxylate-atropine 2.5-0.025 mg tablet 1 tab PO ONCE PRN hydralazine 10 mg tablet 10 mg PO Q6H PRN (Reason: blood pressure) acyclovir 400 mg tablet 400 mg PO DAILY clonidine HCl 0.1 mg tablet 0.1 mg PO .COMPLEX Qty: 60 5RF Rx Instructions: 0.1 mg orally; amlodipine 5 mg tablet 5 mg PO BID Qty: 60 5RF hydromorphone 4 mg tablet 4 mg PO BID PRN (Reason: Pain) Qty: 60 0RF amitriptyline 50 mg tablet 50 mg PO HS Qty: 30 3RF Problem Reconciliation Problems Reviewed?: Yes Patient Discharge Instructions Patient Instructions: DI for Hypotension Print Language: [place] Citizen Providers Primary Care Provider: Connor Gomez Admit Provider: Timothy Weiss Attending Provider: Timothy Weiss
--- NOTE | 2025-02-20 11:28 | SW/DCPLANNER ---
Per PT/OT no needs at this time.
--- NOTE | 2025-02-24 10:48 | SW/DCPLANNER ---
Spoke with patient on the phone. Patient stated that she is doing well. Patient stated that she is aware of her upcoming appointment. Patient stated that she was able to get her new medicine picked up and that she will not stop taking her blood pressure medicine. Patient stated that she has no concerns or questions at this time. Steffany Spence
== END 2025-02-20 12:06 | disposition home or self-care (01) ==
LOC: ER 02-20 01:43 → 2ND 02-20 02:03
PROVIDERS: Admitting Provider Student in an Organized Health Care Education/Training Program; Emergency Provider Emergency Medicine; PCP Family Medicine; Visit Provider Student in an Organized Health Care Education/Training Program
DX: I95.2 Hypotension due to drugs (principal); R41.82 Altered mental status, unspecified; Z79.899 Other long term (current) drug therapy; I67.83 Posterior reversible encephalopathy syndrome; N17.9 Acute kidney failure, unspecified; N18.9 Chronic kidney disease, unspecified; J45.909 Unspecified asthma, uncomplicated; E66.811 Obesity, class 1; Z68.28 Body mass index [BMI] 28.0-28.9, adult; E03.9 Hypothyroidism, unspecified; Z96.641 Presence of right artificial hip joint; Z82.5 Family history of asthma and other chronic lower respiratory diseases; Z88.1 Allergy status to other antibiotic agents; Z79.890 Hormone replacement therapy; R91.8 Other nonspecific abnormal finding of lung field
CPT/HCPCS: 36415; 70450; 70496; 70498; 71275; 80048; 80053; 80307; 81001; 83880; 84439; 84443; 84484; 85025; 85610; 93005; 97162; 97166; 99285; G0378; J1650; J2405; J7120; Q9967

== ENCOUNTER 2025-03-02 10:27 | Outpatient (CLI) | payer MEDICARE, SELFPAY ==
--- OUTSIDE RECORDS SUMMARY | 2024-05-13 08:30 | XMS_ITS ---
Author Organization [facility] Address [address] [place] [address] Care Team Providers Care Hand Paster Name Role Phone Timothy Granda DO Primary Care Provider Tha Chaudhry Unavailable [phone] REASON FOR VISIT NEW PATIENT Encounters Encounter Location Date Provider Diagnosis [facility] [address] [place] [address] 05/13/2024 Tha Krishnamurthy Plan Of Treatment No Information Progress Notes * Giselle ATKINSONOB:[birth year] (74 yo F)Acc No.[id number]:05/13/2024 Progress Notes Patient: Farrah SEAY Provider: Sarabjit Krishnamurthy MD :1950 A ge:73 Y S ex:Female Date:05/13/2024 [facility] Pcp:Timothy Granda DO Subjective: * Chief Complaints: * 1 . NEW PATIENT. * Medical History: Objective: * Vitals: Assessment: Plan: * Treatment: * * Electronic signature of Didier Krishnamurthy MD on 03/03/2025 at 02:25 PM EST Sign off status: Pending * Provider: Sarabjit Krishnamurthy MD Date: 0 05/13/2024 Generated for Brisa conway/Sahra/Jujuitting on: 1 05/04/2024 02:25 PM EST
--- OUTSIDE RECORDS SUMMARY | 2024-06-17 08:30 | XMS_ITS ---
Author Organization [facility] Address [address] [place] [address] Care Team Providers Care Curtain Cutter Name Role Phone Timothy Granda DO Primary Care Provider Tha Chaudhry Unavailable [phone] REASON FOR VISIT NEW PATIENT Encounters Encounter Location Date Provider Diagnosis [facility] [address] [place] [address] 06/17/2024 Tha Krishnamurthy Plan Of Treatment No Information Progress Notes * Giselle ATKINSONOB:[birth year] (74 yo F)Acc No.[id number]:06/17/2024 Progress Notes Patient: Farrah SEAY Provider: Sarabjit Krishnamurthy MD :1950 A ge:73 Y S ex:Female Date:06/17/2024 [facility] Pcp:Timothy Granda DO Subjective: * Chief Complaints: * 1 . NEW PATIENT. * Medical History: Objective: * Vitals: Assessment: Plan: * Treatment: * * Electronic signature of Didier Krishnamurthy MD on 03/03/2025 at 02:31 PM EST Sign off status: Pending * Provider: Sarabjit Krishnamurthy MD Date: 0 06/17/2024 Generated for Brisa conway/Sahra/Carolannsmitting on: 1 05/04/2024 02:31 PM EST
--- OUTSIDE RECORDS SUMMARY | 2025-01-19 09:00 | XMS_ITS | Encounter Summary ---
Author Organization [facility] Address [address] [place] [address] Care Team Providers Care Internet Systems Administrator Name Role Phone Timothy Granda Primary Care Provider [phone] Reason for Referral * Consultation (Routine) - Authorized Specialty Diagnoses / Procedures Referred By Kendal quinones Referred To Contact Diagnoses Acute kidney injury Vitamin D deficiency Gutierrez Domínguez MD [address] [place] [address] Phone: tel: fax: Referral ID Status Reason Start Date Expiration Date V isits Requested Visits Authorized [id number] Authorized 01/19/2025 07/21/2026 1 1 Reason for Visit * Reason Comments Consult Encounter Details Date Type Department Care Team (Latest Contact Info) Description 01/19/2025 10:00 AM EDT Office Visit [facility] Nephrology, Bone & Mineral Metabolism [address], [address] [place] [address] Gutierrez Domínguez MD [address] [place] [phone] Acute kidney injury (Primary Dx); Vitamin D deficiency; CKD stage 3a, GFR 45-59 ml/min (CMS/HCC); Chronic kidney disease-mineral and bone disorder (CKD-MBD); Secondary hyperparathyroidism of renal origin (CMS/HCC); Hypertension, unspecified type; Hyperlipidemia, unspecified hyperlipidemia type Social History Tobacco Use Types Packs/Day Years [...] drink first t mini in the morning ([employer]) to steady your nerves or to get rid of a hangover? 0 11/15/2023 CAGE Questionnaire Score 0 024 Utilities Answer Date Recorded In the past 12 months has th e uShip, gas, oil, or water company threatened to [...] on file documented as of this encounter Last Filed Vital Signs Vital Sign Reading Time Taken Comments Blood Pressure 109/70 01/19/2025 9:48 AM EDT Pulse 70 01/19/2025 9:48 AM EDT Temperature 36.7 C (98 F) 01/19/2025 9:48 AM EDT Respiratory Rate - - Oxygen Saturation 94% 01/19/2025 9:48 AM EDT Inhaled Oxygen Concentration - - Weight 81.3 kg (179 lb 3.7 oz) 01/19/2025 9:48 A M EDT Height 167.6 cm (5' 6 ) 01/19/2025 9:48 AM EDT Body Mass Index 28.93 01/19/2025 9:48 AM EDT documented in this encounter Miscellaneous Notes * Progress Notes - Pavel Echols DO - 01/19/2025 10:00 AM EDT Nephrology Outpatient Clinic New Consult Note Chronic Patient: Farrah Grant Demetrio Primary Care Provider: Timothy Granda DO Referring Provider: Timothy Granda DO Reason for consult: Recent decline in kidney function HPI/Subjective Farrah Atkinson is a 74 y.o. female with a PMH of ischemic colitis s/p colectomy, HTN, HLD, osteoarthritis who presents as a new consult for recently declining kidney function. Ms. Atkinson says that she is here because her family daughter was concerned about her kidney function declining after she was recently hospitalized in December for an e. Coli UTI. Patient reports that she was very nauseous and dehydrated and was told she had acute kidney failure, however this improved with hydration and antibiotics. She also notes that she has been on Bactrim prophylaxis for several years since her colectomy but had stopped that and then had her recent UTI. Ms. Atkinson reports that she has good urine output with clear urine and no urgency, frequency or dysuria. Patient reports occasional upper and lower extremity swelling that she takes lasix for at home. She says takes it very irregularly as it is not often needed, usually only during the summer months. Patient denies any history, personal or family of renal disease, cancer, or autoimmune issues. CKD Risk Factors: Medical comorbidities: HTN, recurrent UTI Medications: No regular use of NSAIDS or PPI Anatomy: CTAP 10/2024 with normal anatomy of both kidneys, no hydronephrosis. Family history: No family history of renal failure/dialysis Social history: Patient has about 3-5 pack years over the course of her life but has not smoked in 20 years. ROS Review of Systems History: Past Medical History[1] Problem List[2] Surgical History[3] Family History[4] Social History Socioeconomic History Marital status: Spouse name: Not on file Number of children: Not on file Years of education: Not on file Highest education level: Not on file Occupational History Not on file Tobacco Use Smoking status: Former Current packs/day: 0.00 Average packs/day: 0.5 packs/day for 2.0 years (1.0 ttl pk-yrs) Types: Cigarettes Start date: 1985 Quit date: 1987 Years since quittin.8 Smokeless tobacco: Never Vaping Use Vaping status: Never Used Substance and Sexual Activity Alcohol use: Not Currently Drug use: Not Currently Types: Marijuana Comment: Drug use: No drug use Sexual activity: Not on file Other Topics Concern Not on file Social History Narrative Retired Marital Status: Social Drivers of Health Financial Resource Strain: Not on file Food Insecurity: Patient Declined (07/23/2023) Hunger Vital Sign Worried About Running Out of Food in the Last Year: Patient declined Ran Out of Food in the Last Year: Patient declined Transportation Needs: Patient Declined (07/23/2023) PRAPARE - Transportation Lack of Transportation (Medical): Patient declined Lack of Transportation (Non-Medical): Patient declined Physical Activity: Not on file Stress: Not on file Social Connections: Low Risk (04/12/2023) Received from [employer] ([place], [place], [place], [place]) Family and Community Support Help with Day to Day Activities: Not on file Feeling Lonely or Isolated: Not on file Intimate Partner Violence: Patient Declined (07/23/2023) Humiliation, Afraid, Rape, and Kick questionnaire Fear of Current or Ex-Partner: Patient declined Emotionally Abused: Patient declined Physically Abused: Patient declined Sexually Abused: Patient declined Housing Stability: Unknown (07/23/2023) Housing Stability Vital Sign Unable to Pay for Housing in the Last Year: Patient refused Number of Places Lived in the Last Year: Not on file Unstable Housing in the Last Year: Patient refused Allergies[5] Medications: Current Medications: Current Outpatient Medications Medication Instructions acetaminophen (TYLENOL) 650 mg, Oral, Every 6 hours scheduled acyclovir (Zovirax) 400 MG tablet amitriptyline (Elavil) 50 MG tablet amLODIPine (NORVASC) 5 mg, Oral, Daily apixaban (ELIQUIS) 5 mg, Oral, 2 times daily ARIPiprazole (ABILIFY) 2 mg, Daily aspirin 81 mg, Daily atorvastatin (Lipitor) 40 MG tablet atorvastatin (LIPITOR) 20 mg, Daily cholecalciferol (VITAMIN D-3) 2,000 Units, Daily cloNIDine (Catapres) 0.1 MG tablet diphenoxylate-atropine (Lomotil) 2.5-0.025 MG tablet 1 tablet, 3 times daily DULoxetine (CYMBALTA) 120 mg, Daily estradiol (Estrace) 0.1 MG/GM vaginal cream ferrous sulfate 325 mg, Daily with breakfast fluticasone-salmeterol (Advair Diskus) 250-50 MCG/ACT diskus inhaler 1 puff, 2 times daily furosemide (Lasix) 40 MG tablet gabapentin (NEURONTIN) 300 mg, Oral, 3 times daily HYDROmorphone (Dilaudid) 4 MG tablet levothyroxine (SYNTHROID, LEVOXYL) 25 mcg, Daily losartan (COZAAR) 75 mg, Daily nystatin (Mycostatin) cream ondansetron ODT (ZOFRAN-ODT) 4 mg, Oral, Every 6 hours PRN oxyCODONE (ROXICODONE) 5 mg, Oral, Every 4 hours PRN potassium chloride CR (Klor-Con M20) 20 MEQ ER tablet 20 mEq, Oral, 2 times daily sulfamethoxazole-trimethoprim (Bactrim DS) 800-160 MG tablet tiZANidine (Zanaflex) 4 MG tablet Objective Visit Vitals Wt 81.3 kg (179 lb 3.7 oz) BMI 29.83 kg/m?? OB Status Postmenopausal Smoking Status Former BSA 1.93 m?? Physical Exam: Physical Exam Constitutional: Appearance: Normal appearance. She is normal weight. Eyes: Conjunctiva/sclera: Conjunctivae normal. Cardiovascular: Rate and Rhythm: Normal rate and regular rhythm. Pulses: Normal pulses. Heart sounds: Normal heart sounds. Pulmonary: Effort: Pulmonary effort is normal. Breath sounds: Normal breath sounds. Musculoskeletal: Cervical back: Neck supple. Right lower leg: No edema. Left lower leg: No edema. Skin: General: Skin is warm and dry. Neurological: Mental Status: She is alert and oriented to person, place, and time. Mental status is at baseline. Psychiatric: Mood and Affect: Mood normal. Thought Content: Thought content normal. Laboratory: I have personally reviewed these lab results and discuss their significance below. LAB RESULTS Renal Panel: Lab Results Component Value Date NA 138 11/15/2023 K 4.2 11/15/2023 CL 100 11/15/2023 CO2 28 11/15/2023 BUN 27 (H) 11/15/2023 CREATININE 1.03 11/15/2023 EGFR 57.9 11/15/2023 CA 9.3 07/24/2017 PHOS 5.1 (H) 11/15/2023 ALBUMIN 3.2 (L) 11/14/2023 CBC: Lab Results Component Value Date WBC 7.71 11/14/2023 RBC 4.17 11/14/2023 HGB 11.9 11/14/2023 HCT 36.0 11/14/2023 PLT 335 11/14/2023 MCV 86 11/14/2023 MCH 28.5 11/14/2023 MCHC 33.1 11/14/2023 RDW 16.5 (H) 11/14/2023 NRBC 0.0 11/14/2023 Iron studies: Lab Results Component Value Date FERRITIN 164 (H) 08/02/2023 IRON 26 (L) 08/25/2023 TIBC 249 08/25/2023 Urine studies: Lab Results Component Value Date CREATUR 20 08/14/2023 MBD: Lab Results Component Value Date CA 9.3 07/24/2017 CALCIUM 9.1 11/15/2023 ICAS 4.8 07/25/2023 PHOS 5.1 (H) 11/15/2023 MG 1.8 (L) 11/15/2023 VITAMIN D 25 No results found for: VITD25 VITAMIN D 1,25 No results found for: VITD32 Paraproteinemia Labs: No results found for: SPEP , KAPPALAMBDA Nutritional: Lab Results Component Value Date PREALBUMIN 38.8 10/01/2023 Endocrine profile: Lab Results Component Value Date TSH 1.72 07/22/2023 [id number] 78 (L) 09/01/2022 FREET4 1.5 07/22/2023 Imaging: CT abdomen from 09/2023 reviewed Solid Abdominal Organs: The kidneys are normal. No hydronephrosis. Impression & Plan: #Acute kidney injury, pre-renal/medication side effect Etiology: Likely due to recurrent UTI's and hypertension. However, serum Cr may be elevated falselydue to chronic bactrim use. Baseline serum creatinine: 0.8-1.2 Most recent Scr: 1.3 down from peak 1.7 in Dec 2024 Electrolytes, acid/base, volume status wnl Urine: [place] Anatomy: normal appearing kidneys on CT abdomen 2023 Risk factor reduction to slow progression of kidney disease: -BP Control goal BP <130/80 -DM control goal A1c <7.0% -Lifestyle management: ---Maintain healthy weight: ---Diet recommendations: Heart healthy and Low sodium <2g/day ---Daily exercise 20-30 minutes as tolerated -Avoid NSAIDs -MICH blockade: Losartan 75mg -SGLT2 inhibitor: None #HTN in CKD -Well controlled with amlodipine 5mg and losartan 75mg -BP in office 109/70 today -Patient reports similar readings at home as long as she remembers to take her medications. #CKD Bone and Mineral Disease -Most recent Vitamin D was wnl at OSH -PTH slightly elevated at 79 perhaps 2/2 renal insufficiency -Will recheck at next visit #Hyperlipidemia in CKD -Currently on atorvastatin 40mg Recommendations and plan: - I have reviewed the laboratory studies in the chart and at [facility] over the past several years. She has had a few AKIs during times of illness, but her baseline kidney function at recovery is around 0.7-0.8. Chronic bactrim use will raise her creatinine value by ~10-20%. Will check a cystatin C next time she has labs to verify true baseline kidney function. Currently she is recoveringfrom an TIP last creatinine 1.3 is above her baseline. No major electrolyte or volume issues. -No change to medications today. -Consider Methenamine Hippurex for UTI prophylaxis in the future if eGFR is below 45 would avoid bactrim at that time - Will recheck Vitamin D, PTH, CBC, RFP and UA at next visit. RTC in 6 months Gutierrez Domínguez MD Division of Nephrology [facility] Counseling Documentation: The patient was counseled regarding COUNSELING TOPICS: diagnostic results, prognosis, risks and benefit of treatment options, risk factor reductions, instructions for management, patient and family education, medication changes, diagnostic impressions, Heart healthy diet, regular physical activity and weight control, Avoidance of NSAIDs and other nephrotoxins, and assisted nature of condition. Education provided was verbal counseling.Additional time was spent in care coordination including medical record review. ENCOUNTER TIMING: I personally spent a total of 60 minutes on this encounter. This time includes face to face with patient, counseling and discussion, lab/result interpretation, coordination of follow-up care, document review. The total time of encounter was 60 minutes. . MDM: - was based on the following: History obtained from family Nursing notes reviewed and incorporated Labs reviewed Urine studies: UA, Metabolic profile: renal panel or CBC, and Imaging: CTAP Past imaging reviewed Old chart reviewed ORDERS PLACED THIS ENCOUNTER Orders Placed This Encounter Procedures CBC W/O Differential Standing Status: Future Expected Date: 07/18/2025 Expiration Date: 07/23/2026 [facility] Urinalysis with reflex microscopic (Culture NOT Included) Standing Status: Future Expected Date: 07/18/2025 Expiration Date: 07/23/2026 Release to patient in [facility]: Immediate Vitamin D 25 Hydroxy Standing Status: Future Expected Date: 07/18/2025 Expiration Date: 07/23/2026 Release to patient in [facility]: Immediate PTH Intact Total Standing Status: Future Expected Date: 07/18/2025 Expiration Date: 07/23/2026 [facility] Albumin-creatinine ratio, urine, random Standing Status: Future Expected Date: 07/18/2025 Expiration Date: 07/23/2026 [facility] Protein, Random, Urine with Creatinine Standing Status: Future Expected Date: 07/18/2025 Expiration Date: 07/23/2026 Release to patient in [facility]: Immediate Renal Function Panel, Plasma Standing Status: Future Expected Date: 07/18/2025 Expiration Date: 07/23/2026 Release to patient in [facility]: Immediate Cystatin C Standing Status: Future Expected Date: 07/21/2025 Expiration Date: 07/24/2026 [facility] [1] Follow Up Nephrology Standing Status: Future Expected Date: 07/20/2025 Expiration Date: 02/19/2026 Referral Priority: Routine Referral Type: Consultation Number of Visits Requested: 1 Problem List Items Addressed This Visit None Visit Diagnoses Acute kidney injury - Primary Relevant Medications furosemide (Lasix) 40 MG tablet Other Relevant Orders Follow Up Nephrology CBC W/O Differential Urinalysis with reflex microscopic (Culture NOT Included) Vitamin D 25 Hydroxy PTH Intact Total Albumin-creatinine ratio, urine, random Protein, Random, Urine with Creatinine Renal Function Panel, Plasma Cystatin C Vitamin D deficiency Relevant Orders Follow Up Nephrology CBC W/O Differential Urinalysis with reflex microscopic (Culture NOT Included) Vitamin D 25 Hydroxy PTH Intact Total Albumin-creatinine ratio, urine, random Protein, Random, Urine with Creatinine Renal Function Panel, Plasma Cystatin C CKD stage 3a, GFR 45-59 ml/min (CMS/HCC) Relevant Medications atorvastatin (Lipitor) 40 MG tablet furosemide (Lasix) 40 MG tablet Other Relevant Orders Cystatin C I confirm that I have addressed the patient's longitudinal multifaceted and complex health related active and chronic conditions that will require ongoing care with myself or someone on my team. [1] Past Medical History: Diagnosis Date A-fib ([facility]) Abnormal findings on diagnostic imaging of other specified body structures Thickened endometrium TIP (acute kidney injury) ([facility]) 08/04/2022 Cr 1.38 on admission baseline .9 Avoid nephrotoxins Continue to trend UOP improved and creatinine dowtrending Anasarca 08/04/2022 Diuresis PRN Conversions - Other Diarrhea (Symptom) GI bleed 08/19/202208/18 developed coffee ground ostomy output with associated drop in hgb, transfused 2 units -GI consulted, recommended octreotide, possible scope 08/19 vs. 08/21 -lovenox reversed with protamine -transfuse to hgb >7 - plan for scope on 08/21 with GI History of Clostridium difficile colitis Hypothyroidism Personal history of other diseases of the circulatory system History of hypertension Personal history of other diseases of the digestive system History of irritable bowel syndrome Personal history of other diseases of the musculoskeletal system and connective tissue History of arthritis Personal history of other diseases of the musculoskeletal system and connective tissue History of joint pain Personal history of other endocrine, nutritional and metabolic disease History of high cholesterol Personal history of other infectious and parasitic diseases History of hepatitis C virus infection Personal history of other infectious and parasitic diseases History of herpes simplex infection Personal history of other mental and behavioral disorders History of depression Protein calorie malnutrition ([facility]) 08/14/2022 Pt on TPN during previous admission, no evidence of continuing condition during this admission Sepsis, due to unspecified organism, unspecified whether acute organ dysfunction present ([facility]) 07/22/2023 Severe protein-calorie malnutrition ([facility]) 08/14/22 PICC and TPNEnteral tube feeds via GJ Venous disease 08/04/2022 History of b/l venous iliac stents - on Eliquis [2] Patient Active Problem List Diagnosis Hx of Clostridium difficile infection Hypertension Hypothyroidism Paroxysmal atrial fibrillation ([facility]) Dysphagia Ileostomy in place ([facility]) Diverticulosis Intra-abdominal fluid collection Functional diarrhea Small bowel stricture [3] Past Surgical History: Procedure Laterality Date BREAST LUMPECTOMY Left Left Breast Lumpectomy from [facility] SECTION, LOW TRANSVERSE N/A Section from [facility] ILEOSTOMY N/A ILEOSTOMY 09/10/2023 Ex Lap, small bowel resection x 2, creation of end ilesotomy ILEOSTOMY CLOSURE 05/24/2023 open closure of end ileostomy with ileosigmoid anastomosis. TOTAL HIP ARTHROPLASTY N/A Total Hip Replacement from [facility] TOTAL SHOULDER ARTHROPLASTY N/A Shoulder Arthroplasty Total Shoulder Replacement from [facility] TUBAL LIGATION N/A Tubal Ligation from [facility] [4] Family History Problem Relation Name Age of Onset Alzheimer's disease Mother Breast cancer Mother No Known Problems Father Alzheimer's disease Maternal Grandmother Alzheimer's disease Mother's Sister Breast cancer Mother's Sister Anxiety disorder Other Alzheimer's disease Other Breast cancer Other Breast cancer Other Anesthesia problems Neg Hx Malig Hyperthermia Neg Hx [5] Allergies Allergen Reactions Azithromycin Unknown - Patient states they do not know rxn details Ciprofloxacin Other - please document in the comment field Joint pain Prochlorperazine Palpitations Tremors Quinolones Unknown - Patient states they do not know rxn details and Rash Fluoroquinolones- knee tendon, extreme pain and risk of rupture. Note: joint pain- Major Fluoroquinolones- knee tendon, extreme pain and risk of rupture. Note: joint pain- Major Joint pain Fluoroquinolones- knee tendon, extreme pain and risk of rupture. Cosigned by Gutierrez Domínguez MD at 01/20/2025 11:23 AM EDT Associated attestation - Gutierrez Domínguez MD - 01/20/2025 11:23 AM EDT I saw and evaluated the patient with the resident/fellow. I discussed the case with the resident/fellow and agree with the findings and plan as documented. * Progress Notes - Gutierrez Domínguez MD - 01/19/2025 10:00 AM EDT Nephrology Outpatient Clinic New Consult Note General Nephrology Patient: Farrah Judgekarinalli Primary Care Provider: Timothy Granda DO Referring Provider: Timothy Granda DO Reason for consult: Acute kidney injury HPI/Subjective Farrah Atkinson is a 74 y.o. female with a PMH of ischemic colitis s/p colectomy, HTN, HLD, osteoarthritis who presents as a new consult for recently declining kidney function. Ms. Atkinson says that she is here because her family daughter was concerned about her kidney function declining after she was recently hospitalized in December for an e. Coli UTI. Patient reports that she was very nauseous and dehydrated and was told she had acute kidney failure, however this improved with hydration and antibiotics. She also notes that she has been on Bactrim prophylaxis for several years since her colectomy but had stopped that and then had her recent UTI. Ms. Atkinson reports that she has good urine output with clear urine and no urgency, frequency or dysuria. Patient reports occasional upper and lower extremity swelling that she takes lasix for at home. She says takes it very irregularly as it is not often needed, usually only during the summer months. Patient denies any history, personal or family of renal disease, cancer, or autoimmune issues. CKD Risk Factors: Medical comorbidities: HTN, recurrent UTI Medications: No regular use of NSAIDS or PPI Anatomy: CTAP 10/2024 with normal anatomy of both kidneys, no hydronephrosis. Family history: No family history of renal failure/dialysis Social history: Patient has about 3-5 pack years over the course of her life but has not smoked in 20 years. ROS Review of Systems History: Past Medical History[1] Problem List[2] Surgical History[3] Family History[4] Social History Socioeconomic History Marital status: Spouse name: Not on file Number of children: Not on file Years of education: Not on file Highest education level: Not on file Occupational History Not on file Tobacco Use Smoking status: Former Current packs/day: 0.00 Average packs/day: 0.5 packs/day for 2.0 years (1.0 ttl pk-yrs) Types: Cigarettes Start date: 1985 Quit date: 1987 Years since quittin.8 Smokeless tobacco: Never Vaping Use Vaping status: Never Used Substance and Sexual Activity Alcohol use: Not Currently Drug use: Not Currently Types: Marijuana Comment: Drug use: No drug use Sexual activity: Defer Other Topics Concern Not on file Social History Narrative Retired Marital Status: Social Drivers of Health Financial Resource Strain: Not on file Food Insecurity: Patient Declined (07/23/2023) Hunger Vital Sign Worried About Running Out of Food in the Last Year: Patient declined Ran Out of Food in the Last Year: Patient declined Transportation Needs: Patient Declined (07/23/2023) PRAPARE - Transportation Lack of Transportation (Medical): Patient declined Lack of Transportation (Non-Medical): Patient declined Physical Activity: Not on file Stress: Not on file Social Connections: Low Risk (04/12/2023) Received from [employer] ([place], [place], [place], [place]) Family and Community Support Help with Day to Day Activities: Not on file Feeling Lonely or Isolated: Not on file Intimate Partner Violence: Patient Declined (07/23/2023) Humiliation, Afraid, Rape, and Kick questionnaire Fear of Current or Ex-Partner: Patient declined Emotionally Abused: Patient declined Physically Abused: Patient declined Sexually Abused: Patient declined Housing Stability: Unknown (07/23/2023) Housing Stability Vital Sign Unable to Pay for Housing in the Last Year: Patient refused Number of Places Lived in the Last Year: Not on file Unstable Housing in the Last Year: Patient refused Allergies[5] Medications: Current Medications: Current Outpatient Medications Medication Instructions acyclovir (Zovirax) 400 MG tablet amitriptyline (Elavil) 50 MG tablet amLODIPine (NORVASC) 5 mg, Oral, Daily ARIPiprazole (ABILIFY) 2 mg, Daily atorvastatin (Lipitor) 40 MG tablet cholecalciferol (VITAMIN D-3) 2,000 Units, Daily cloNIDine (Catapres) 0.1 MG tablet diphenoxylate-atropine (Lomotil) 2.5-0.025 MG tablet 1 tablet, 3 times daily DULoxetine (CYMBALTA) 120 mg, Daily estradiol (Estrace) 0.1 MG/GM vaginal cream fluticasone-salmeterol (Advair Diskus) 250-50 MCG/ACT diskus inhaler 1 puff, 2 times daily furosemide (Lasix) 40 MG tablet HYDROmorphone (Dilaudid) 4 MG tablet levothyroxine (SYNTHROID, LEVOXYL) 25 mcg, Daily losartan (COZAAR) 75 mg, Daily nystatin (Mycostatin) cream ondansetron ODT (ZOFRAN-ODT) 4 mg, Oral, Every 6 hours PRN oxyCODONE (ROXICODONE) 5 mg, Every 4 hours PRN sulfamethoxazole-trimethoprim (Bactrim DS) 800-160 MG tablet tiZANidine (Zanaflex) 4 MG tablet Objective Visit Vitals BP 109/70 (BP Location: Left arm, Patient Position: Sitting, BP Cuff Size: Large adult) Pulse 70 Temp 36.7 ??C (98 ??F) (Oral) Ht 1.676 m (5' 6 ) Wt 81.3 kg (179 lb 3.7 oz) SpO2 94% BMI 28.93 kg/m?? OB Status Postmenopausal Smoking Status Former BSA 1.95 m?? Physical Exam: Physical Exam Constitutional: Appearance: Normal appearance. HENT: Head: Normocephalic. Right Ear: External ear normal. Left Ear: External ear normal. Nose: Nose normal. Mouth/Throat: Mouth: Mucous membranes are moist. Eyes: Conjunctiva/sclera: Conjunctivae normal. Pupils: Pupils are equal, round, and reactive to light. Cardiovascular: Rate and Rhythm: Normal rate. Pulses: Normal pulses. Pulmonary: Effort: Pulmonary effort is normal. Abdominal: General: Abdomen is flat. Bowel sounds are normal. Musculoskeletal: General: Normal range of motion. Cervical back: Normal range of motion. Right lower leg: No edema. Left lower leg: No edema. Skin: General: Skin is warm and dry. Capillary Refill: Capillary refill takes less than 2 seconds. Neurological: General: No focal deficit present. Mental Status: She is alert and oriented to person, place, and time. Mental status is at baseline. Psychiatric: Mood and Affect: Mood normal. Behavior: Behavior normal. Thought Content: Thought content normal. Judgment: Judgment normal. Laboratory: I have personally reviewed these lab results and discuss their significance below. LAB RESULTS Renal Panel: Lab Results Component Value Date NA 138 11/15/2023 K 4.2 11/15/2023 CL 100 11/15/2023 CO2 28 11/15/2023 BUN 27 (H) 11/15/2023 CREATININE 1.03 11/15/2023 EGFR 57.9 11/15/2023 CA 9.3 07/24/2017 PHOS 5.1 (H) 11/15/2023 ALBUMIN 3.2 (L) 11/14/2023 CBC: Lab Results Component Value Date WBC 7.71 11/14/2023 RBC 4.17 11/14/2023 HGB 11.9 11/14/2023 HCT 36.0 11/14/2023 PLT 335 11/14/2023 MCV 86 11/14/2023 MCH 28.5 11/14/2023 MCHC 33.1 11/14/2023 RDW 16.5 (H) 11/14/2023 NRBC 0.0 11/14/2023 Iron studies: Lab Results Component Value Date FERRITIN 164 (H) 08/02/2023 IRON 26 (L) 08/25/2023 TIBC 249 08/25/2023 Urine studies: Lab Results Component Value Date CREATUR 20 08/14/2023 MBD: Lab Results Component Value Date CA 9.3 07/24/2017 CALCIUM 9.1 11/15/2023 ICAS 4.8 07/25/2023 PHOS 5.1 (H) 11/15/2023 MG 1.8 (L) 11/15/2023 VITAMIN D 25 No results found for: VITD25 VITAMIN D 1,25 No results found for: VITD32 Paraproteinemia Labs: No results found for: SPEP , KAPPALAMBDA Nutritional: Lab Results Component Value Date PREALBUMIN 38.8 10/01/2023 Endocrine profile: Lab Results Component Value Date TSH 1.72 07/22/2023 [id number] 78 (L) 09/01/2022 FREET4 1.5 07/22/2023 Imaging: CT abdomen from 09/2023 reviewed Solid Abdominal Organs: The kidneys are normal. No hydronephrosis. Impression & Plan: #Acute kidney injury, pre-renal/medication side effect Etiology: Likely due to recurrent UTI's and hypertension. However, serum Cr may be elevated falselydue to chronic bactrim use. Baseline serum creatinine: 0.8-1.2 Most recent Scr: 1.3 down from peak 1.7 in Dec 2024 Electrolytes, acid/base, volume status wnl Urine: [place] Anatomy: normal appearing kidneys on CT abdomen 2023 Risk factor reduction to slow progression of kidney disease: -BP Control goal BP <130/80 -DM control goal A1c <7.0% -Lifestyle management: ---Maintain healthy weight: ---Diet recommendations: Heart healthy and Low sodium <2g/day ---Daily exercise 20-30 minutes as tolerated -Avoid NSAIDs -MICH blockade: Losartan 75mg -SGLT2 inhibitor: None #HTN in CKD -Well controlled with amlodipine 5mg and losartan 75mg -BP in office 109/70 today -Patient reports similar readings at home as long as she remembers to take her medications. #CKD Bone and Mineral Disease -Most recent Vitamin D was wnl at OSH -PTH slightly elevated at 79 perhaps 2/2 renal insufficiency -Will recheck at next visit #Hyperlipidemia in CKD -Currently on atorvastatin 40mg Recommendations and plan: - I have reviewed the laboratory studies in the chart and at [facility] over the past several years. She has had a few AKIs during times of illness, but her baseline kidney function at recovery is around 0.7-0.8. Chronic bactrim use will raise her creatinine value by ~10-20%. Will check a cystatin C next time she has labs to verify true baseline kidney function. Currently she is recoveringfrom an TIP last creatinine 1.3 is above her baseline. No major electrolyte or volume issues. -No change to medications today. -Consider Methenamine Hippurex for UTI prophylaxis in the future if eGFR is below 45 would avoid bactrim at that time - Will recheck Vitamin D, PTH, CBC, RFP and UA at next visit. RTC in 6 months Gutierrez Domínguez MD Division of Nephrology [facility] Counseling Documentation: The patient was counseled regarding COUNSELING TOPICS: diagnostic results, prognosis, risks and benefit of treatment options, risk factor reductions, instructions for management, patient and family education, medication changes, diagnostic impressions, Heart healthy diet, regular physical activity and weight control, Avoidance of NSAIDs and other nephrotoxins, and assisted nature of condition. Education provided was verbal counseling.Additional time was spent in care coordination including medical record review. ENCOUNTER TIMING: I personally spent a total of 60 minutes on this encounter. This time includes face to face with patient, counseling and discussion, lab/result interpretation, coordination of follow-up care, document review. The total time of encounter was 60 minutes. . MDM: - was based on the following: History obtained from family Nursing notes reviewed and incorporated Labs reviewed Urine studies: UA, Metabolic profile: renal panel or CBC, and Imaging: CTAP Past imaging reviewed Old chart reviewed ORDERS PLACED THIS ENCOUNTER Orders Placed This Encounter Procedures CBC W/O Differential Standing Status: Future Expected Date: 07/18/2025 Expiration Date: 07/23/2026 Release to patient in [facility]: Immediate Urinalysis with reflex microscopic (Culture NOT Included) Standing Status: Future Expected Date: 07/18/2025 Expiration Date: 07/23/2026 Release to patient in [facility]: Immediate Vitamin D 25 Hydroxy Standing Status: Future Expected Date: 07/18/2025 Expiration Date: 07/23/2026 Release to patient in [facility]: Immediate PTH Intact Total Standing Status: Future Expected Date: 07/18/2025 Expiration Date: 07/23/2026 Release to patient in [facility]: Immediate Albumin-creatinine ratio, urine, random Standing Status: Future Expected Date: 07/18/2025 Expiration Date: 07/23/2026 Release to patient in [facility]: Immediate Protein, Random, Urine with Creatinine Standing Status: Future Expected Date: 07/18/2025 Expiration Date: 07/23/2026 Release to patient in [facility]: Immediate Renal Function Panel, Plasma Standing Status: Future Expected Date: 07/18/2025 Expiration Date: 07/23/2026 Release to patient in [facility]: Immediate Cystatin C Standing Status: Future Expected Date: 07/21/2025 Expiration Date: 07/24/2026 Release to patient in [facility]: Immediate [1] Follow Up Nephrology Standing Status: Future Expected Date: 07/20/2025 Expiration Date: 02/19/2026 Referral Priority: Routine Referral Type: Consultation Number of Visits Requested: 1 Problem List Items Addressed This Visit Hypertension Overview Complicates all aspects of care -home medications Relevant Medications furosemide (Lasix) 40 MG tablet Acute kidney injury - Primary Overview Cr 1.38 on admission baseline .9 Avoid nephrotoxins Continue to trend UOP improved and creatinine dowtrending Relevant Medications furosemide (Lasix) 40 MG tablet Other Relevant Orders Follow Up Nephrology CBC W/O Differential Urinalysis with reflex microscopic (Culture NOT Included) Vitamin D 25 Hydroxy PTH Intact Total Albumin-creatinine ratio, urine, random Protein, Random, Urine with Creatinine Renal Function Panel, Plasma Cystatin C Vitamin D deficiency Relevant Orders Follow Up Nephrology CBC W/O Differential Urinalysis with reflex microscopic (Culture NOT Included) Vitamin D 25 Hydroxy PTH Intact Total Albumin-creatinine ratio, urine, random Protein, Random, Urine with Creatinine Renal Function Panel, Plasma Cystatin C CKD stage 3a, GFR 45-59 ml/min ([facility]) Relevant Medications atorvastatin (Lipitor) 40 MG tablet furosemide (Lasix) 40 MG tablet Other Relevant Orders Cystatin C Chronic kidney disease-mineral and bone disorder (CKD-MBD) Relevant Medications atorvastatin (Lipitor) 40 MG tablet furosemide (Lasix) 40 MG tablet Secondary hyperparathyroidism of renal origin ([facility]) Hyperlipidemia Relevant Medications atorvastatin (Lipitor) 40 MG tablet I confirm that I have addressed the patient's longitudinal multifaceted and complex health related active and chronic conditions that will require ongoing care with myself or someone on my team. [1] Past Medical History: Diagnosis Date A-fib Abnormal findings on diagnostic imaging of other specified body structures Thickened endometrium TIP (acute kidney injury) 08/04/2022 Cr 1.38 on admission baseline .9 Avoid nephrotoxins Continue to trend UOP improved and creatinine dowtrending Anasarca 08/04/2022 Diuresis PRN Conversions - Other Diarrhea (Symptom) GI bleed 08/19/202208/18 developed coffee ground ostomy output with associated drop in hgb, transfused 2 units -GI consulted, recommended octreotide, possible scope 08/19 vs. 08/21 -lovenox reversed with protamine -transfuse to hgb >7 - plan for scope on 08/21 with GI History of Clostridium difficile colitis Hypothyroidism Personal history of other diseases of the circulatory system History of hypertension Personal history of other diseases of the digestive system History of irritable bowel syndrome Personal history of other diseases of the musculoskeletal system and connective tissue History of arthritis Personal history of other diseases of the musculoskeletal system and connective tissue History of joint pain Personal history of other endocrine, nutritional and metabolic disease History of high cholesterol Personal history of other infectious and parasitic diseases History of hepatitis C virus infection Personal history of other infectious and parasitic diseases History of herpes simplex infection Personal history of other mental and behavioral disorders History of depression Protein calorie malnutrition ([facility]/HCC) 08/14/2022 Pt on TPN during previous admission, no evidence of continuing condition during this admission Sepsis, due to unspecified organism, unspecified whether acute organ dysfunction present 07/22/2023 Severe protein-calorie malnutrition (CMS/HCC) 08/14/22 PICC and TPNEnteral tube feeds via [facility]J Venous disease 08/04/2022 History of b/l venous iliac stents - on Eliquis [2] Patient Active Problem List Diagnosis Hx of Clostridium difficile infection Hypertension Acute kidney injury Hypothyroidism Paroxysmal atrial fibrillation ([facility]/HCC) Dysphagia Ileostomy in place ([facility]) Diverticulosis Intra-abdominal fluid collection Functional diarrhea Small bowel stricture Vitamin D deficiency CKD stage 3a, GFR 45-59 ml/min ([facility]) Chronic kidney disease-mineral and bone disorder (CKD-MBD) Secondary hyperparathyroidism of renal origin ([facility]) Hyperlipidemia [3] Past Surgical History: Procedure Laterality Date BREAST LUMPECTOMY Left Left Breast Lumpectomy from [employer] SECTION, LOW TRANSVERSE N/A Section from [employer] ILEOSTOMY N/A ILEOSTOMY 09/10/2023 Ex Lap, small bowel resection x 2, creation of end ilesotomy ILEOSTOMY CLOSURE 05/24/2023 open closure of end ileostomy with ileosigmoid anastomosis. TOTAL HIP ARTHROPLASTY N/A Total Hip Replacement from [employer] TOTAL SHOULDER ARTHROPLASTY N/A Shoulder Arthroplasty Total Shoulder Replacement from [employer] TUBAL LIGATION N/A Tubal Ligation from [employer] [4] Family History Problem Relation Name Age of Onset Alzheimer's disease Mother Breast cancer Mother No Known Problems Father Alzheimer's disease Maternal Grandmother Alzheimer's disease Mother's Sister Breast cancer Mother's Sister Anxiety disorder Other Alzheimer's disease Other Breast cancer Other Breast cancer Other Anesthesia problems Neg Hx Malig Hyperthermia Neg Hx [5] Allergies Allergen Reactions Azithromycin Unknown - Patient states they do not know rxn details Ciprofloxacin Other - please document in the comment field Joint pain Prochlorperazine Palpitations Tremors Quinolones Unknown - Patient states they do not know rxn details and Rash Fluoroquinolones- knee tendon, extreme pain and risk of rupture. Note: joint pain- Major Fluoroquinolones- knee tendon, extreme pain and risk of rupture. Note: joint pain- Major Joint pain Fluoroquinolones- knee tendon, extreme pain and risk of rupture. documented in this encounter Plan of Treatment Upcoming Encounters Date Type Department Care Team ([facility] st Contact Info) Description 07/20/2025 10:40 AM EDT Office Visit Professional [place] [facility] [address], [address] [place] [address] Gutierrez Domínguez MD [address] [place] [address] Scheduled Orders Name Type Priority Associated Diagnoses Orde r Schedule CBC W/O Differential Lab Routine Acute kidney injury ([facility]) Vitamin D deficiency Expected: 07/18/2025 (Approximate), Expires: 07/23/2026 Urinalysis with reflex microscopic (Culture NOT Included) Lab Routine Acute kidney injury Vitamin D deficiency Expected: 07/18/2025 (Approximate), Expires: 07/23/2026 Vitamin D 25 Hydroxy Lab Routine Acute kidney injury Vitamin D deficiency Expected: 07/18/2025 (Approximate), Expires: 07/23/2026 PTH Intact Total Lab Routine Acute kidney injury Vitamin D deficiency Expected: 07/18/2025 (Approximate), Expires: 07/23/2026 Albumin-creatinine ratio, urine, random Lab Routine Acute kidney injury Vitamin D deficiency Expected: 07/18/2025 (Approximate), Expires: 07/23/2026 Protein, Random, Urine with Creatinine Lab Routine Acute kidney injury Vitamin D deficiency Expected: 07/18/2025 (Approximate), Expires: 07/23/2026 Renal Function Panel, Plasma Lab Routine Acute kidney injury Vitamin D deficiency Expected: 07/18/2025 (Approximate), Expires: 07/23/2026 Cystatin C Lab Routine Acute kidney injury Vitamin D deficiency CKD stage 3a, GFR 45-59 ml/min ([facility]) Expected: 07/21/2025 (Approximate), Expires: 07/24/2026 Scheduled Referrals Name Type Priority Associated Diagnoses Order Schedule Follow Up Nephrology Outpatient Referral Routine Acute kidney injury ([facility]) Vitamin D deficiency Expected: 07/20/2025 (Approximate), Expires: 02/19/2026 documented as of this encounter Visit Diagnoses Diagnosis Acute kidney injury- Primary Vitamin D deficiency CKD stage 3a, GFR 45-59 ml/min ([facility]) Chronic kidney disease-mineral and bone disorder (CKD-MBD) Secondary hyperparathyroidism of renal origin ([facility]) Secondary hyperparathyroidism (of renal origin) Hypertension, unspecified type Hyperlipidemia, unspecified hyperlipidemia type documented in this encounter Additional Health Concerns Assessment Noted Time A fall risk assessment has been complete d for the patient 01/19/2025 10:00 AM EDT A Body Mass Index follow-up plan has been documented for the patient 01/20/2025 11:25 AM EDT documented as of this encounter Care Teams Internet Systems Administrator Relationship Specialty Start Date End Date Timothy Granda DO [address] [place] [address] PCP - General 05/25/23 documented as of this encounter
--- OUTSIDE RECORDS SUMMARY | 2025-01-26 00:09 | XMS_ITS | Encounter Summary ---
Author Organization [facility] Address [address] [place] [id number] Care Team Providers Care Prototyper Name Role Phone Connor Gomez MD Primary Care Provider [phone]- [phone] Reason for Visit * Auth/Cert Specialty Diagnoses / Procedures Referred By Contac t Referred To Contact Diagnoses Seizures Possible CVA Referral ID Status Reason Start Date Expiration Date Visits Re quested Visits Authorized [id number] 1 1 Encounter Details Date Type Department Care Team (Late st Contact Info) Description 01/26/2025 1:09 AM EDT - 01/29/2025 2:01 PM EDT Hospital Encounter [facility] [address] [place] [id number] Rayshawn Baldwin MD [address] [place] [address] Andrew Barkley MD [address] [place] [address] Meli Hernandez MD [address] [address] Jessica Valdovinos DO [address] [facility] [address] [place] [address] Cognitive communication deficit (Primary Dx); PRES (posterior [...] and heating? Patient unable to answer 01/26/2025 [facility] - Occupational Stress [...] No 01/26/2025 [facility] Utilities Answer Date Recorded In the past [...] Patient unable to answer 01/26/2025 Preferred Language Gabonese 01/26/2025 Comments No Sex and Gender Information [...] 1 Month) No 025 6:19 AM EDT Minine Castillo RN 2. Non-Specific Active Suici charles Thoughts (Past 1 Month) No 01/27/2025 6:19 AM EDT Flora Castillo RN * Calculated C-SSRS Risk Score (Lifetime/Recent) Answer Date of Assessment Author No Risk Indicated 01/27/2025 6:19 AM EDT Minnie Castillo RN documented as of this encounter Discharge Summaries * Jessica Valdovinos, DO - 01/29/2025 7:20 AM EDT Images from the original note were not included. [facility] Medicine Services DISCHARGE SUMMARY Patient [...] paroxysmal A-fib recurrentUTIs who [facility]. Per chart review, the patient was found by her shortly after crushing and snorting pain pills. She was obtunded, treated with Narcan but subsequently experienced seizure-like event and was treated with Ativan. At OSH, she had CT head that showed possible subarachnoid hemorrhage versus artifact. There was also concern for meningitis and she underwent LP. At [facility], MRI of brain revealed motion artifact but [...] Date/Time Blood Culture - Blood, Arm, Right [[id number]] (Normal) Collected: 01/25/25 1405 Lab Status: Preliminary result Specimen: Blood from Arm, Right Updated: 01/29/25314 Blood Culture No growth at 3 days Blood Culture - Blood, Blood, Port [[id number]] (Normal) Collected: 01/25/25 1400 Lab Status: Preliminary [...] MD 01/27/2025 2:05 AM EDT Workstation ID: [id number] EEG Result Date: 01/26/2025 Reason for referral: [...] present This report is transcribed using the [employer] dictation system. MRI Brain Without Contrast Result [...] MD 01/26/2025 1:54 AM EDT Workstation ID: [id number] CT Angiogram Head w AI Analysis of [...] MD 01/26/2025 1:54 AM EDT Workstation ID: [id number] CT Head Without Contrast Result Date: 01/26/2025 [...] MD 01/26/2025 1:46 AM EDT Workstation ID: [id number] Results for orders placed during the hospital [...] as: SYNTHROID, LEVOTHROID 25 mcg, Oral, Every Agricultural Economics Teacher oxyCODONE 5 MG capsule Commonly known as: OXY-IR 5 mg, Oral, Every 4 Hours PRN tiZANidine 4 MG tablet Commonly known as: ZANAFLEX 4 mg, Oral, Every 8 Hours PRN tretinoin 0.05 % cream Commonly known as: RETIN-A 1 Application, Topical, Nightly tretinoin 10 MG chemo capsule Commonly known as: VESANOID Oral, 2 Times Daily vitamin D 1.25 MG (17879 UT) capsule capsule Commonly known as: ERGOCALCIFEROL [...] minutes on this discharge activity which included: [id number] with the patient, reviewing the data in the system, coordination of the care with the nursing staff as well as consultants, documentation, and entering orders. * Shabana Kim, OT Student - 01/28/2025 8:12 AM EDT Images from the original note were not included. Acute Care - Occupational Therapy Discharge [facility] Patient Name: Farrah Lopez Cathyalli : 1950 Today's Date: 01/28/2025 Admit Date: 01/26/2025 Visit Dx: ICD-10-CM ICD-9-CM 1. 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 Hatchery Supervisor Dr Connor Jose (retired, [place], [place]), advised stringent lifelong avoidance of all [...] ARTHROPLASTY RIGHT; Surgeon: Bautista Luis MD; Location: [facility] OR; Service: Orthopedics TUBAL ABDOMINAL LIGATION 1989 General [...] Mobility Bed Mobility supine-sit (P) -BT Supine-Sit Early (Bed Mobility) modified independence (P) -BT Assistive Device (Bed Mobility) head of bed elevated (P) -BT Row Name 01/28/25834 Transfers Transfers sit-stand transfer;stand-sit transfer;bed-chair transfer (P) -BT Row Name 01/28/25834 Bed-Chair Transfer Bed-Chair Early (Transfers) independent (P) -BT Row Name 01/28/25 Sit-Stand Transfer Sit-Stand Early (Transfers) independent (P) -BT Row Name 01/28/25 Stand-Sit Transfer Stand-Sit Early (Transfers) independent (P) -BT Row Name 01/28/25 Functional Mobility Functional Mobility- Ind. Level independent (P) -BT Functional Mobility-Distance (Feet) -- (P) HH distance -BT Row Name 01/28/25834 Activities of Daily Living BADL Assessment/Intervention upper body dressing;lower body dressing;grooming (P) -BT Row Name 01/28/25834 Hygiene Care Oral Care teeth brushed - regular toothbrush (P) -BT Row Name 01/28/25 Upper Body Dressing Assessment/Training Early Level (Upper Body Dressing) don;doff;front opening garment;standby assist (P) -BT Position (Upper Body Dressing) edge of bed sitting (P) -BT Row Name 01/28/25834 Lower Body Dressing Assessment/Training Early Level (Lower Body Dressing) don;doff;socks;independent (P) figure 4 -BT Position (Lower Body Dressing) edge of bed sitting (P) -BT Row Name 01/28/25834 Grooming Assessment/Training Early Level (Grooming) oral care regimen;wash face, hands;set [...] Student OT Student Goals/Plan Row Name 01/28/25 0899 Dressing Goal 1 (OT) Activity/Device (Dressing Goal 1, OT) upper body dressing;lower body dressing (P) -BT Early/Cues Needed (Dressing Goal 1, OT) standby assist (P) -BT Time Frame (Dressing Goal 1, OT) short term goal (STG);5 days (P) -BT Progress/Outcome (Dressing Goal 1, OT) goal met (P) -BT Row Name 01/28/25 0853 Grooming Goal 1 (OT) Activity/Device (Grooming Goal 1, OT) hair care;oral care;wash face, hands (P) -BT Early (Grooming Goal 1, OT) standby assist (P) -BT Time Frame (Grooming Goal 1, OT) terminologist goal (LTG);10 days (P) -BT Strategies/Barriers (Grooming Goal 1, OT) standing sinkside (P) -BT Progress/Outcome (Grooming Goal 1, OT) goal met (P) -BT User Thompson (r) = Recorded By, (t) = Taken By, (c) = Cosigned By Initials Name Provider Type Shabana Collazo W, OT Student OT Student Clinical Impression Row Name 01/28/25 0840 Pain Assessment Pretreatment Pain Rating 0/10 - no pain (P) -BT Posttreatment Pain Rating 0/10 - no pain (P) -BT Row Name 01/28/2540 Plan of Care Review Plan of Care [...] Student OT Student Outcome Measures Row Name 01/28/25845 How much help from another is currently [...] 22 (P) -BT Row Name 01/28/25845 Modified Acworth Scale Pre-Stroke Modified Dimitry Scale 6 - Unable to determine (UTD) from the medical record documentation (P) -BT Modified Acworth Scale 0 - No Symptoms at all. (P) -BT Row Name 01/28/25 0846 Functional Assessment Outcome Measure Options AM-PAC 6 Clicks Daily Activity (OT) (P) -BT User Thompson (r) = Recorded By, (t) = Taken By, (c) = Cosigned By Initials Name Provider Type BT Shabana Kim, OT Student OT Student Occupational Therapy Education Title: PT OT DOUGH CATCHER Therapies (In Progress) Topic: Occupational Therapy (In [...] Provider Type Discipline KF 11/08/22 - Shelly Saleem OT Occupational Therapist OT 11/14/24 - Shabana iKm, OT Student OT Student OT OT Recommendation [...] 01/28/2547 Time Calculation- OT OT Start Time 0812 (P) -BT OT Received On 01/28/25 (P) -BT Timed Charges 45280 - OT Self Care/Mgmt Minutes 24 (P) -BT Total Minutes Timed Charges Total Minutes 24 (P) -BT Total Minutes 24 (P) -BT User Thompson (r) = Recorded By, (t) = Taken By, (c) = Cosigned By Initials Name Provider Type BT Shabana Kim, OT Student OT Student Therapy Charges for Today Code Description Service Date Service Provider Modifiers Qty [id number] HC OT SELF CARE/MGMT/TRAIN EA 15 MIN [...] sent through Care Everywhere. * Levetiracetam Tablets (Gabonese) * Toxic Metabolic Encephalopathy (Gabonese) * Managing Your Hypertension (Gabonese) documented in this encounter Medications at Time [...] a Day. vitamin D (ERGOCALCIFEROL) 1.25 MG (29603 UT) capsule capsule Take 1 capsule by [...] resulted in removal iof 13 precancerous polyps. Hatchery Supervisor Dr Connor Jose (retired, [place], [place]), advised stringent lifelong avoidance of all [...] MD 01/28/25 11:52 EDT * Jessica Valdovinos, - 01/28/2025 7:14 AM EDT Images from the original note were not included. [facility] Medicine Services PROGRESS NOTE Patient [...] TSH -- -- -- 1.430 Lab 01/26/25 0209 [...] MD 01/27/2025 2:05 AM EDT Workstation ID: [id number] Results for orders placed during the hospital [...] paroxysmal A-fib recurrentUTIs who [facility]. Per chart review, the patient was found by her shortly after crushing and snorting pain pills. She was obtunded, treated with Narcan but subsequently experienced seizure-like event and was treated with Ativan. At OSH, she had CT head that showed possible subarachnoid hemorrhage versus artifact. There was also concern for meningitis and she underwent LP. At [facility], MRI of brain revealed motion artifact but [...] tract infections (UTIs). She was transferred from [facility] on 01/26/2025. She was found at [...] patient snorts pain pills. History taken from: [facility]//Social History were reviewed and updated appropriately in [...] Results from last 7 days Lab Units 01/27/254 01/26/25 0209 WBC 10*3/mm3 9.35 18.88* HEMOGLOBIN g/dL [...] No driving for 3 months due to [facility] statute. Okay to telemetry/hospitalist. Electronically signed by: Andrew Barkley MD 01/27/25 17:34 EDT Patient or patient software sales representative verbalized consent for the use [...] resulted in removal iof 13 precancerous polyps. Hatchery Supervisor Dr Connor Jose (retired, [place], [place]), advised stringent lifelong avoidance of all [...] Results from last 7 days Lab Units 01/27/2545301/26/259 SODIUM mmol/L 141 142 POTASSIUM mmol/L 3.2* [...] Value Units Date/Time MRI Brain With Contrast [[id number]] Collected: 01/27/25199 Updated: 01/27/25207 Narrative: MRI BRAIN [...] MD 01/27/2025 2:05 AM EDT Workstation ID: [id number] Assessment: PRES. Solitary seizure Accelerated hypertension Plan: Continue Keppra 500 mg 3 times daily. Outpatient follow-up [facility] neurology in 3 months. No driving or [...] to the ICU as a transfer [facility] due to concerns for subarachnoid hemorrhage. [...] resulted in removal iof 13 precancerous polyps. Hatchery Supervisor Dr Connor Jose (retired, [place], [place]), advised stringent lifelong avoidance of all [...] RIGHT; Surgeon: Bautista Luis MD; Location: [facility]; Service: Orthopedics TUBAL ABDOMINAL LIGATION 1989 Allergies [...] CONSULT TO INFECTIOUS DISEASES Farrah Atkinson 1950 [id number] Date of Consult: 01/26/2025 Date of Admission: [...] resulted in removal iof 13 precancerous polyps. Hatchery Supervisor Dr Connor Jose (retired, [place], [place]), advised stringent lifelong avoidance of all [...] ARTHROPLASTY RIGHT; Surgeon: Bautista Luis MD; Location: [facility]; Service: Orthopedics TUBAL ABDOMINAL LIGATION 1989 [...] Application 1 Application Each Nare BID Maru Martinez, SENIOR HEALTH EDUCATOR 1 Application at 01/26/25 0246 sodium chloride 0.9 % flush 10 mL 10 mL Intravenous Q12H Maru Martinez, SENIOR HEALTH EDUCATOR 10 mL at 01/26/25 0945 sodium chloride 0.9 % flush 10 mL 10 mL Intravenous PRN Maru Martinez, SENIOR HEALTH EDUCATOR sodium chloride 0.9 % flush 10 mL [...] Value Units Date/Time MRI Brain Without Contrast [[id number]] Collected: 01/26/25615 Updated: 01/26/25639 Narrative: MRI BRAIN [...] EDT Workstation ID: [id number] CT Outside Head [[id number]] Resulted: 01/26/25238 Updated: 01/26/25238 Narrative: This procedure was auto-finalized with no dictation required. CT Outside Spine [[id number]] Resulted: 01/26/25238 Updated: 01/26/25238 Narrative: This procedure was auto-finalized with no dictation required. CT Outside Spine [[id number]] Resulted: 01/26/25238 Updated: 01/26/25238 Narrative: This procedure was auto-finalized with no dictation required. CT Outside Spine [[id number]] Resulted: 01/26/25237 Updated: 01/26/25237 Narrative: This procedure was auto-finalized with no dictation required. CT Outside Abd/Pelvis [[id number]] Resulted: 01/26/25237 Updated: 01/26/25237 Narrative: This procedure was auto-finalized with no dictation required. CT Outside Abd/Pelvis [[id number]] Resulted: 01/26/25236 Updated: 01/26/25236 Narrative: This procedure was auto-finalized with no dictation required. CT Outside Chest [[id number]] Resulted: 01/26/25236 Updated: 01/26/25236 Narrative: This procedure was auto-finalized with no dictation required. CT Angiogram Neck [[id number]] Collected: 01/26/25147 Updated: 01/26/25156 Narrative: CT ANGIOGRAM [...] evidence of large vessel occlusion. Electronically Signed: Jseus Peterson MD 01/26/2025 1:54 AM EDT Workstation ID: [id number] CT Angiogram Head w AI Analysis of LVO [[id number]] Collected: 01/26/25147 Updated: 01/26/25156 Narrative: CT ANGIOGRAM [...] MD 01/26/2025 1:54 AM EDT Workstation ID: [id number] CT Head Without Contrast [[id number]] Collected: 01/26/25144 Updated: 01/26/25148 Narrative: CT HEAD [...] MD 01/26/2025 1:46 AM EDT Workstation ID: [id number] PROBLEM LIST: PRES ( Posterior Reversible Encephalopathy [...] included. Neurology Referring provider: Provider, [place] [address] Reason for Consultation: Altered mental state Chief [...] a Day. vitamin D (ERGOCALCIFEROL) 1.25 MG (90399 UT) capsule capsule Take 1 capsule by mouth 1 (One) Time Per Week. History Past Medical History: Diagnosis Date Acute blood loss anemia, mild, asymptomatic 07/19/2018 Acute postoperative pain 07/19/2018 Anxiety 6 Anxiety and depression of lifeling duration Arthritis Asthma 1989 Well-cobtrolled with inhaled corticosteroids. Cholelithiasis Clostridium difficile infection 05/2017 hospitalized for 1 week Colon polyp 1989 First colonoscopy at age 36 resulted in removal iof 13 precancerous polyps. Hatchery Supervisor Dr Connor Jose (retired, [place], [place]), advised stringent lifelong avoidance of all NSAIDS. [...] RIGHT; Surgeon: Bautista Luis MD; Location: [facility]; Service: Orthopedics TUBAL ABDOMINAL LIGATION 1989 , [...] awake and alert. She is oriented to [facility] but cannot tell me how old [...] Component Value Units Date/Time POC Glucose Once [[id number]] Collected: 01/26/25 1219 Specimen: Blood Updated: 01/26/25 1222 Glucose 98 mg/dL Comment: Serial Number: [id number]: [id number] Amber Comment 1 Follow unit protocol STAT Lactic Acid, Reflex [[id number]] (Normal) Collected: 01/26/25 1044 Specimen: Blood Updated: 01/26/25 1133 Lactate 1.9 mmol/L Comment: Falsely depressed results may occur on samples drawn from patients receiving N-Acetylcysteine (NAC) or Metamizole. Hemoglobin A1c [[id number]] (Abnormal) Collected: 01/26/25 0651 Specimen: Blood from Arm, Right Updated: 01/26/25 0856 Hemoglobin A1C 5.67 % Narrative: Hemoglobin A1C Ranges: Increased Risk for Diabetes 5.7% to 6.4% Diabetes >= 6.5% Diabetic Goal < 7.0% Vancomycin, Random [[id number]] (Abnormal) Collected: 01/26/25650 Specimen: Blood from Arm, Right Updated: 01/26/25 0753 Vancomycin Random 42.10 mcg/mL Narrative: Therapeutic Ranges for Vancomycin Vancomycin Random 5.0-40.0 mcg/mL Vancomycin Trough 5.0-20.0 mcg/mL Vancomycin Peak 20.0-40.0 mcg/mL STAT Lactic Acid, Reflex [[id number]] (Abnormal) Collected: 01/26/25650 Specimen: Blood from Arm, Right Updated: 01/26/25 0724 Lactate 2.2 mmol/L Comment: Falsely depressed results may occur on samples drawn from patients receiving N-Acetylcysteine (NAC) or Metamizole. POC Glucose Once [[id number]] (Abnormal) Collected: 01/26/25 0520 Specimen: Blood Updated: 01/26/25 0523 Glucose 134 mg/dL Comment: Serial Number: [id number]: [id number] POC Glucose Once [[id number]] (Abnormal) Collected: 01/26/25 0238 Specimen: Blood Updated: 01/26/25 0506 Glucose 150 mg/dL Comment: Serial Number: [id number]: [id number] High Sensitivity Troponin T 1Hr [[id number]] (Abnormal) Collected: 01/26/25 0328 Specimen: Blood Updated: [...] condition. Fentanyl, Urine - Indwelling Urethral Catheter [[id number]] (Normal) Collected: 01/26/25256 Specimen: Urine from Indwelling [...] Urine Drug Screen - Indwelling Urethral Catheter [[id number]] (Abnormal) Collected: 01/26/25256 Specimen: Urine from Indwelling [...] Indicated (No Culture) - Indwelling Urethral Catheter [[id number]] (Abnormal) Collected: 01/26/25256 Specimen: Urine from Indwelling Urethral Catheter Updated: 01/26/25324 Color, UA Yellow Appearance, UA Clear pH, UA 5.5 Specific [place], UA >1.030 Glucose, UA Negative Ketones, UA Negative Bilirubin, UA Negative Blood, UA Moderate (2+) Protein, UA Trace Leuk Esterase, UA Small (1+) Nitrite, UA Negative Urobilinogen, UA 0.2 E.U./dL Urinalysis, Microscopic Only - Indwelling Urethral Catheter [[id number]] (Abnormal) Collected: 01/26/25256 Specimen: Urine from Indwelling Urethral Catheter Updated: 01/26/25 032 RBC, UA 6-10 /HPF WBC, UA 11-20 /HPF Bacteria, UA None Seen /HPF Squamous Epithelial Cells, UA 0-2 /HPF Hyaline Casts, UA None Seen /LPF Methodology Automated Microscopy Blood Culture - Blood, Blood, Port [[id number]] Collected: 01/25/25 1400 Specimen: Blood, Port Updated: 01/26/25 0310 Blood Culture - Blood, Arm, Right [[id number]] Collected: 01/25/25 1405 Specimen: Blood from Arm, Right Updated: 01/26/25 030 aPTT [[id number]] (Normal) Collected: 01/26/25208 Specimen: Blood Updated: 01/26/25255 PTT 26.2 seconds Narrative: PTT = The equivalent PTT values for the therapeutic range of heparin levels at 0.3 to 0.5 U/ml are 60 to 70 seconds. Protime-INR [[id number]] (Normal) Collected: 01/26/25208 Specimen: Blood Updated: 01/26/25255 Protime 13.9 Seconds INR 1.01 CK [[id number]] (Abnormal) Collected: 01/26/25208 Specimen: Blood Updated: 01/26/25249 Creatine Kinase 206 U/L Lipase [[id number]] (Normal) Collected: 01/26/25208 Specimen: Blood Updated: 01/26/25249 Lipase 20 U/L Lipid Panel [[id number]] (Abnormal) Collected: 01/26/25208 Specimen: Blood Updated: 01/26/25249 [...] calculated using the NIH LDL-C calculation. Magnesium [[id number]] (Normal) Collected: 01/26/25208 Specimen: Blood Updated: 01/26/25249 Magnesium 2.1 mg/dL Procalcitonin [[id number]] (Normal) Collected: 01/26/25208 Specimen: Blood Updated: 01/26/25249 [...] Day 4 values are available. Refer to http://www.drcmlb-whk-wrzvhhhkco.[email or web address] Change in PCT <=80% A decrease of [...] or septic shock. High Sensitivity Troponin T [[id number]] (Abnormal) Collected: 01/26/25208 Specimen: Blood Updated: 01/26/25249 [...] TSH Rfx On Abnormal To Free T4 [[id number]] (Normal) Collected: 01/26/25208 Specimen: Blood Updated: 01/26/25249 TSH 1.430 uIU/mL Comprehensive Metabolic Panel [[id number]] (Abnormal) Collected: 01/26/25208 Specimen: Blood Updated: 01/26/25249 [...] not include race as a factor Phosphorus [[id number]] (Normal) Collected: 01/26/25208 Specimen: Blood Updated: 01/26/25249 Phosphorus 3.6 mg/dL CBC & Differential [[id number]] (Abnormal) Collected: 01/26/25208 Specimen: Blood Updated: 01/26/25247 Narrative: The following orders were created for panel order CBC & Differential. Procedure Abnormality Status --------- ------ Manual Differential[[id number]] Abnormal Final result CBC Auto Differential[[id number]] Abnormal Final result Please view results for these tests on the individual orders. Manual Differential [[id number]] (Abnormal) Collected: 01/26/25208 Specimen: Blood Updated: 01/26/25247 [...] Normal Platelet Morphology Normal CBC Auto Differential [[id number]] (Abnormal) Collected: 01/26/25208 Specimen: Blood Updated: 01/26/25247 WBC 18.88 10*3/mm3 RBC 3.98 10*6/mm3 Hemoglobin 11.6 g/dL Hematocrit 35.6 % MCV 89.4 fL MCH 29.1 pg MCHC 32.6 g/dL RDW 13.6 % RDW-SD 45.1 fl MPV 9.4 fL Platelets 411 10*3/mm3 Lactic Acid, Plasma [[id number]] (Abnormal) Collected: 01/26/25208 Specimen: Blood Updated: 01/26/25244 Lactate 2.7 mmol/L Comment: Falsely depressed results may occur on samples drawn from patients receiving N-Acetylcysteine (NAC) or Metamizole. LSAC Slide Creation [[id number]] Collected: 01/26/25208 Specimen: Blood Updated: 01/26/25230 Calcium, Ionized [[id number]] (Normal) Collected: 01/26/25208 Specimen: Blood Updated: 01/26/25221 Ionized Calcium 1.15 mmol/L Rads: Imaging Results (Last 48 Hours) Procedure Component Value Units Date/Time MRI Brain Without Contrast [[id number]] Collected: 01/26/25615 Updated: 01/26/25639 Narrative: MRI BRAIN [...] EDT Workstation ID: [id number] CT Outside Head [[id number]] Resulted: 01/26/25238 Updated: 01/26/25238 Narrative: This procedure was auto-finalized with no dictation required. CT Outside Spine [[id number]] Resulted: 01/26/25238 Updated: 01/26/25238 Narrative: This procedure was auto-finalized with no dictation required. CT Outside Spine [[id number]] Resulted: 01/26/25238 Updated: 01/26/25238 Narrative: This procedure was auto-finalized with no dictation required. CT Outside Spine [[id number]] Resulted: 01/26/25237 Updated: 01/26/25237 Narrative: This procedure was auto-finalized with no dictation required. CT Outside Abd/Pelvis [[id number]] Resulted: 01/26/25237 Updated: 01/26/25237 Narrative: This procedure was auto-finalized with no dictation required. CT Outside Abd/Pelvis [[id number]] Resulted: 01/26/25236 Updated: 01/26/25236 Narrative: This procedure was auto-finalized with no dictation required. CT Outside Chest [[id number]] Resulted: 01/26/25236 Updated: 01/26/25236 Narrative: This procedure was auto-finalized with no dictation required. CT Angiogram Neck [[id number]] Collected: 01/26/25147 Updated: 01/26/25156 Narrative: CT ANGIOGRAM [...] MD 01/26/2025 1:54 AM EDT Workstation ID: [id number] CT Angiogram Head w AI Analysis of LVO [[id number]] Collected: 01/26/25147 Updated: 01/26/25 015 Narrative: CT ANGIOGRAM NECK, CT ANGIOGRAM HEAD [...] MD 01/26/2025 1:54 AM EDT Workstation ID: [id number] CT Head Without Contrast [[id number]] Collected: 01/26/25144 Updated: 01/26/25148 Narrative: CT HEAD [...] MD 01/26/2025 1:46 AM EDT Workstation ID: [id number] Assessment: Encephalopathy with possible seizure, improving. Episode [...] 01/26/2025 9:31 AM EDT Chart review for conservation educator consult. At the time of this [...] Care Physician: Timothy Granda DO Referring Physician: [facility] ICU Provider Handedness: Unknown Race: Chief Complaint/Reason for Consultation: Altered mental status HPI Last Known Normal Date/Time: Unknown This patient is a 74-year-old female with past medical history significant for hypertension, hyperlipidemia, remote hep C, anxiety/depression, chronic pain, and reported polysubstance use who was admitted to [facility] with altered mental status. Spoke to [facility] Provider who was able to provide only limited history. ED Provider reportedly had suspicion for opiate/benzodiazepine use and gave reversal medications . Following medication administration, patient reportedly had a seizure and was loaded with 2 g Keppra and admitted to [facility]. CT imaging with and without contrast was obtained. Noncontrast CTh reportedly showed suspicion for trace SAH. LP was performed at OSH with results detailed below. Transfer to [facility] for higher level of care was requested in setting of finding of possible SAH. Patient was seen and examined immediately on arrival to [facility]. Patient is not alert but arouses [...] CTA H/N were obtained on arrival to [facility]. Imaging was significantly motion degraded but [...] resulted in removal iof 13 precancerous polyps. Hatchery Supervisor Dr Connor Jose (retired, [place], [place]), advised stringent lifelong avoidance of all [...] RIGHT; Surgeon: Bautista Luis MD; Location: [facility]; Service: Orthopedics TUBAL ABDOMINAL LIGATION 1989 Family [...] Times a Day As Needed (anxiety). 08/04/21 ProviderJean-Claude MD diphenoxylate-atropine (LOMOTIL) 2.5-0.025 MG per tablet [...] Scale Time: 0120 Person Administering Scale: Rayshawn Hrecules PA-C 1a Level of consciousness: 1=not alert [...] MD 01/26/2025 1:54 AM EDT Workstation ID: [id number] CT Angiogram Head w AI Analysis of LVO Result Date: 01/26/2025 Impression: Significantly limited exam due to motion artifact. The neck vasculature is not adequately evaluated. The intracranial vasculature is normal. There is no evidence of large vessel occlusion. Electronically Signed: Jesus Peterson MD 01/26/2025 1:54 AM EDT Workstation ID: [id number] CT Head Without Contrast Result Date: 01/26/2025 Impression: No acute intracranial abnormality. Electronically Signed: Jesus Peterson MD 01/26/2025 1:46 AM EDT Workstation ID: [id number] Assessment and Plan This patient is a [...] results as above. Patient was transferred to [facility] for higher level of care. On arrival to [facility], NIH score was 13 for altered mental status, no focal neurologic deficits appreciated. Stat CT imaging was obtained on arrival to [facility] which were motion degraded but showed no evidenceof SAH or other acute abnormality. LP at OSH 01/25/2025: WBC 2, RBC 1, glucose 105, protein 100, Gram stain and culture pending Antiplatelet CODING AND REIMBURSEMENT SPECIALIST: None Anticoagulant CODING AND REIMBURSEMENT SPECIALIST: None Acute encephalopathy Possible SAH reported [...] stat CTh for any acute neurological change -PT/OT/DOUGH CATCHER as appropriate Disposition: Patient is admitted to the ICU Case discussed with the patient, bedside RN, and [facility] ICU Providers. Thank you for the consult. Stroke neurology will continue to follow. Rayshawn Hercules PA-C [facility] Stroke Neurology Cosigned by Rayshawn Camp MD at 01/26/2025 10:39 AM EDT Associated attestation - Rayshawn Camp MD - 01/26/2025 10:39 AM EDT There is no evidence of SAH on CTH performed at [facility]. MRI did not reveal evidence of acute infarct, however imaging was more concerning PRES vs encephalitis vs cerebritis vs other. Will defer further workup and recommendations to the General Neurology team. Rayshawn Camp MD Vascular Neurologist [facility] documented in this encounter Nursing Notes [...] assistance provided Head of Bed (HOB) Positioning: [facility] elevated Pressure Reduction Devices: positioning supports utilized pressure-redistributing mattress utilized specialty bed utilized Skin Protection: incontinence pads utilized silicone border foam - heel silicone border foam - sacrum/coccyx Taken 01/29/2025 0200 by Mary Wu RN Activity Management: activity encouraged Pressure Reduction Techniques: frequent weight shift encouraged weight shift assistance provided Head of Bed ([facility]) Positioning: [facility] elevated Pressure Reduction Devices: positioning supports utilized pressure-redistributing mattress utilized specialty bed utilized Skin Protection: incontinence pads utilized silicone border foam - heel silicone border foam - sacrum/coccyx Taken 01/29/2025 by Mary Wu RN Activity Management: activity encouraged Pressure Reduction Techniques: frequent weight shift encouraged weight shift assistance provided Head of Bed (HOB) Positioning: [facility] elevated Pressure Reduction Devices: positioning supports utilized pressure-redistributing mattress utilized specialty bed utilized Skin Protection: incontinence pads utilized silicone border foam - heel silicone border foam - sacrum/coccyx Taken 01/28/2025 2200 by Mary Wu RN Activity Management: activity encouraged Pressure Reduction Techniques: frequent weight shift encouraged weight shift assistance provided Head of Bed (HOB) Positioning: [facility] elevated Pressure Reduction Devices: positioning [...] Taken 01/29/2025 0400 by Mary Wu RN Wire Frame Lamp Shade Maker Protection: tubing secured Taken 01/29/2025 0200 by Mary Wu RN Wire Frame Lamp Shade Maker Protection: tubing secured Taken 01/29/2025 0000 by Mary Wu RN Wire Frame Lamp Shade Maker Protection: tubing secured Taken 01/28/2025 2200 by Mary Wu RN Wire Frame Lamp Shade Maker Protection: tubing secured Taken 01/28/20251999 by Mary Wu RN Wire Frame Lamp Shade Maker Protection: tubing secured Diversional Activities: television Intervention: [...] bed alarm set Taken 01/28/20251999 by Mary uW RN Enhanced Safety Measures: bed alarm set [...] encouraged BADL personal objects within reach Taken 01/28/20250 by Mary Wu RN Self-Care Promotion: independence [...] Goal Outcome Evaluation: * Madiha Mccauley, MS CCC-DOUGH CATCHER - 01/28/2025 3:51 PM EDT Goal Outcome Evaluation: Plan of Care Reviewed With: patient, spouse Progress: improving Anticipated Discharge Disposition (DOUGH CATCHER): home with OP services (if deficits persist @ time of d/c) Treatment Assessment (DOUGH CATCHER): improved, mild, cognitive-linguistic disorder (01/28/251499) Treatment Assessment Comments (DOUGH CATCHER): Mild deficits are acute/atypical for pt per her report. (01/28/251499) Plan for Continued Treatment (DOUGH CATCHER): continue treatment per plan of care, goals [...] standing. Stand by assist to bathroom. Described 8/ back pain, refused scheduled lidocaine patch, given [...] Prevention: rest/sleep promoted environmental surveillance performed Taken 01/27/2025 225 by Raeann Arredondo RN Infection Prevention: rest/sleep [...] points protected Head of Bed (HOB) Positioning: [facility] elevated Pressure Reduction Devices: positioning supports utilized Skin Protection: incontinence pads utilized Taken 01/28/2025 0200 by Raeann Arredondo RN Activity Management: activity minimized Pressure Reduction Techniques: frequent weight shift encouraged Head of Bed (HOB) Positioning: [facility] elevated Pressure Reduction Devices: positioning supports utilized Skin Protection: incontinence pads utilized Taken 01/27/2025 225 by Raeann Arredondo RN Activity Management: activity minimized Pressure Reduction Techniques: frequent weight shift encouraged Head of Bed (HOB) Positioning: [facility] elevated Pressure Reduction Devices: positioning supports utilized Skin Protection: incontinence pads utilized Problem: Restraint, Nonviolent Goal: Absence of Harm or Injury Outcome: Progressing Intervention: Implement Least Restrictive Safety Strategies Recent Flowsheet Documentation Taken 01/27/20252257 by Raeann Arredondo RN Wire Frame Lamp Shade Maker Protection: IV pole/bag removed from visual field [...] Evaluation: Progress: improving * Nic Martin MS CCC-DOUGH CATCHER - 01/26/2025 1:04 PM EDT Goal Outcome Evaluation: Plan of Care Reviewed With: patient Progress: improving Anticipated Discharge Disposition (DOUGH CATCHER): inpatient rehabilitation facility, other (see comments) (no further dysphagia intervention indicated, DOUGH CATCHER will f/u w cog) DOUGH CATCHER Diagnosis: moderate-severe, cognitive-linguistic disorder (01/26/25 1030) DOUGH CATCHER Diagnosis Comments: deficits are low level and are more c/w cognitive- linguistic deficits than language. (01/26/25 1030) DOUGH CATCHER Swallowing Diagnosis: swallow WFL/no suspected pharyngeal impairment [...] CWOCN Wound, Ostomy and Continence (WOC) Department [facility] documented in this encounter Miscellaneous Notes * Case Management/Social Work - Merari Skaggs MSW - 01/29/2025 1:42 PM EDT Case Management Discharge Note Final Note: STATIC BALANCER spoke with pt at bedside. Speech therapy [...] Therapy Treatment Note - Madiha Mccauley MS CCC-DOUGH CATCHER - 01/28/2025 3:52 PM EDT Images from the original note were not included. Acute Care - Speech Language Pathology Treatment Note [facility] Patient Name: Farrah Atkinson : 1950 Today's Date: 01/28/2025 Admit Date: 01/26/2025 Visit Dx: ICD-10-CM ICD-9-CM 1. Cognitive communication deficit R41.841 799.52 2. 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 Hatchery Supervisor Dr Connor Jose [facility] [place], [place]), advised stringent lifelong avoidance of all [...] RIGHT; Surgeon: Bautista Luis MD; Location: [facility]; Service: Orthopedics TUBAL ABDOMINAL LIGATION 1989 DOUGH CATCHER Recommendation and Plan Recommended discharge disposition is based on the functional assessment performed by PT/OT/Speech therapy (as applicable) and may not reflect the medical necessity determined by your provider or services covered by an individual patient's insurance plan or patient resource. Anticipated Discharge Disposition (DOUGH CATCHER): home with OP services (if deficits persist @ time of d/c) (01/28/25 1500) Therapy Frequency (DOUGH CATCHER SLC): 5 days per week (01/28/251499) Predicted Duration Therapy Intervention (Days): 2 weeks (01/28/251499) Daily Summary of Progress (DOUGH CATCHER): progress toward functional goals as expected (01/28/251499) Treatment Assessment (DOUGH CATCHER): improved, mild, cognitive-linguistic disorder (01/28/251499) Treatment Assessment Comments (DOUGH CATCHER): Mild deficits are acute/atypical for pt per her report. (01/28/25 1500) Plan for Continued Treatment (DOUGH CATCHER): continue treatment per plan of care, goals adjusted to reflect functional improvements demonstrated (01/28/251499) Progress: improving (01/28/25 1551) DOUGH CATCHER EVALUATION (Last 72 Hours) DOUGH CATCHER SLC Evaluation Row Name 01/28/25 1500 01/26/25 [...] Function -- WFL -RS Cognitive Assessment Intervention- DOUGH CATCHER Cognitive Function (Cognition) mild impairment -AC severe [...] Comment -- oriented to year only -RS DOUGH CATCHER Evaluation Clinical Impressions DOUGH CATCHER Diagnosis -- moderate-severe;cognitive-linguistic disorder -RS DOUGH CATCHER Diagnosis Comments -- deficits are low level and are more c/w cognitive- linguistic deficits than language. -RS Rehab Potential/Prognosis -- good -RS SLC Criteria for Skilled Therapy Interventions Met -- yes -RS DOUGH CATCHER Treatment Clinical Impressions Treatment Assessment (DOUGH CATCHER) improved;mild;cognitive-linguistic disorder -AC -- Treatment Assessment Comments (DOUGH CATCHER) Mild deficits are acute/atypical for pt per her report. -AC -- Daily Summary of Progress (DOUGH CATCHER) progress toward functional goals as expected -AC -- Plan for Continued Treatment (DOUGH CATCHER) continue treatment per plan of care;goals adjusted to reflect functional improvements demonstrated -AC -- Care Plan Review evaluation/treatment results reviewed;care plan/treatment goals reviewed;risks/benefits reviewed;current/potential barriers reviewed;patient/other agree to care plan -AC -- Care Plan Review, Other Participant(s) spouse -AC -- Recommendations Therapy Frequency (DOUGH CATCHER SLC) 5 days per week -AC 5 days per week -RS Predicted Duration Therapy Intervention (Days) 2 weeks -AC 2 weeks -RS Anticipated Discharge Disposition (DOUGH CATCHER) home with OP services if deficits persist @ time of d/c -ACinpatient rehabilitation facility;other (see comments) no further dysphagia intervention indicated,DOUGH CATCHER will f/u w cog -RS User Thompson (r) = Recorded By, (t) = Taken By, (c) = Cosigned By Initials Name Effective Dates AC Madiha Mccauley, MS CCC-DOUGH CATCHER 05/05/22 - RS Mario Lucero, MS CCC-DOUGH CATCHER 12/14/22 - EDUCATION The patient has been educated in the following areas: Cognitive Impairment. DOUGH CATCHER GOALS Row Name 01/28/25 1500 01/26/25 1030 Patient will demonstrate functional cognitive-linguistic skills for return to discharge environment Early Independently -AC with moderate cues -RS Time frame 2 weeks -AC 2 weeks -RS Progress/Outcomes goal revised this -AC new goal -RS DOUGH CATCHER Diagnostic Treatment Patient will participate in further assessment in the following areas reading comprehension;graphicexpression -AC reading comprehension;graphic expression -RS Time Frame (Diagnostic) 1 week -AC 1 week -RS Progress/Outcomes (Additional Goal 1, DOUGH CATCHER) goal met -AC new goal -RS Comment (Diagnostic) See assessment. -AC -- Comprehend Questions Goal 1 (DOUGH CATCHER) Improve Ability to Comprehend Questions Goal 1 (DOUGH CATCHER) simple yes/no questions;80%;with moderate cues(50-74%) -AC simple yes/no questions;80%;with moderate cues (50-74%) -RS Time Frame (Comprehend Questions Goal 1, DOUGH CATCHER) 1 week -AC 1 week -RS Progress (Ability to Comprehend Questions Goal 1, DOUGH CATCHER) 100%;independently (over 90% accuracy) -AC -- Progress/Outcomes (Comprehend Questions Goal 1, DOUGH CATCHER) goal met -AC new goal -RS Follow Directions Goal 2 (DOUGH CATCHER) Improve Ability to Follow Directions Goal 1 (DOUGH CATCHER) 1 step direction without objects;80%;with moderate cues (50-74%) -AC 1 step direction without objects;80%;with moderate cues (50-74%) -RS Time Frame (Follow Directions Goal 1, DOUGH CATCHER) 1 week -AC 1 week -RS Progress (Ability to Follow Directions Goal 1, DOUGH CATCHER) 100%;independently (over 90% accuracy) -AC -- Progress/Outcomes (Follow Directions Goal 1, DOUGH CATCHER) goal met -AC new goal -RS Orientation Goal 1 (DOUGH CATCHER) Improve Orientation Through Goal 1 (DOUGH CATCHER) demonstrating orientation to day;demonstrating orientationto month;demonstrating orientation to year;80%;with moderate cues (50-74%) -AC demonstrating orientation to day;demonstrating orientation to month;demonstrating orientation to year;80%;with moderatecues (50-74%) -RS Time Frame (Orientation Goal 1, DOUGH CATCHER) 1 week -AC 1 week -RS Progress (Orientation Goal 1, DOUGH CATCHER) 100%;independently (over 90% accuracy) -AC -- Progress/Outcomes (Orientation Goal 1, DOUGH CATCHER) goal met -AC new goal -RS Memory Skills Goal 1 (DOUGH CATCHER) Improve Memory Skills Through Goal 1 (DOUGH CATCHER) recalling related word lists immediately;listen to a paragraph and answer questions;use memory strategies;90%;independently (over 90% accuracy) -AC -- Time Frame (Memory Skills Goal 1, DOUGH CATCHER) 1 week -AC -- Progress/Outcomes (Memory Skills Goal 1, DOUGH CATCHER) new goal -AC -- Organizational Skills Goal 1 (DOUGH CATCHER) Improve Thought Organization Through Goal 1 (DOUGH CATCHER) completing mental manipulation task;90%;with minimal cues (75-90%) -AC -- Time Frame (Thought Organization Skills Goal 1, DOUGH CATCHER) 1 week -AC -- Progress/Outcomes (Thought Organization Skills Goal 1, DOUGH CATCHER) new goal -AC -- Executive Functional Skills Goal 1 (DOUGH CATCHER) Improve Executive Function Skills Goal 1 (DOUGH CATCHER) identify anticipated needs;organization/planning activity;80%;with minimal cues (75-90%) -AC -- Time Frame (Executive Function Skills Goal 1, DOUGH CATCHER) 1 week -AC -- Progress/Outcomes (Executive Function Skills Goal 1, DOUGH CATCHER) new goal -AC -- User Thompson (r) = Recorded By, (t) = Taken By, (c) = Cosigned By Initials Name Provider Type Madiha Ramos MS CCC-DOUGH CATCHER Speech and Language Pathologist Nic Conti MS CCC-DOUGH CATCHER Speech and Language Pathologist Time Calculation: Time Calculation- DOUGH CATCHER Row Name 01/28/25 1551 Time Calculation- DOUGH CATCHER DOUGH CATCHER Start Time 1500 -AC DOUGH CATCHER Received On 01/28/25 -AC Untimed Charges 38862-EU Treatment/ST Modification Prosth Aug Alter 54 -AC Total Minutes Untimed Charges Total Minutes 54 -AC Total Minutes 54 -AC User Thompson (r) = Recorded By, (t) = Taken By, (c) = Cosigned By Initials Name Provider Type Madiha Ramos MS CCC-DOUGH CATCHER Speech and Language Pathologist Therapy Charges for Today Code Description Service Date Service Provider Modifiers Qty [id number] ST TREATMENT SPEECH 4 01/28/2025 Madiha Mccauley, CCC-DOUGH CATCHER GN 1 Madiha Mccauley MS CCC-DOUGH CATCHER 01/28/2025 * Case Management/Social Work - Merari Skaggs MSW - 01/28/2025 11:15 AM EDT Continued Stay Note [facility] Patient Name: Farrah Atkinson Today's Date: [...] longer recommending SNF and jsut rec home. STATIC BALANCER remains available for any discharge needs thatarise. Discharge Codes No documentation. JEAN Shane * Therapy Evaluation - Nic Martin MS CCC-DOUGH CATCHER - 01/26/2025 1:04 PM EDT Images from the original note were not included. Acute Care - Speech Language Pathology Swallow Initial Evaluation [facility] Clinical Swallow Evaluation + Cognitive-Communication Evaluation Patient Name: Farrah Atkinson : 1950 Today's Date: 01/26/2025 Admit Date: 01/26/2025 Visit Dx: ICD-10-CM ICD-9-CM 1. 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 Hatchery Supervisor Dr Connor Jose (retired, [place], [place]), advised stringent lifelong avoidance of all NSAIDS. [...] RIGHT; Surgeon: Bautista Luis MD; Location: [facility]; Service: Orthopedics TUBAL ABDOMINAL LIGATION 1989 DOUGH CATCHER Recommendation and Plan Recommended discharge disposition is based on the functional assessment performed by PT/OT/Speech therapy (as applicable) and may not reflect the medical necessity determined by your provider or services covered by an individual patient's insurance plan or patient resource. DOUGH CATCHER Swallowing Diagnosis: swallow WFL/no suspected pharyngeal impairment (01/26/25 1030) DOUGH CATCHER Diet Recommendation: regular textures, thin liquids (01/26/25 1030) DOUGH CATCHER Rec. for Method of Medication Administration: as tolerated (01/26/25 1030) Swallow Criteria for Skilled Therapeutic Interventions Met: no problems identified which require skilled intervention (01/26/25 1030) Anticipated Discharge Disposition (DOUGH CATCHER): inpatient rehabilitation facility, other (see comments) (no further dysphagia intervention indicated, DOUGH CATCHER will f/u w cog) (01/26/25 1030) Predicted Duration Therapy Intervention (Days): 2 weeks (01/26/25 1030) Oral Care Recommendations: Oral Care BID/PRN, Toothbrush (01/26/25 1030) Progress: improving SWALLOW EVALUATION (Last 72 Hours) DOUGH CATCHER Adult Swallow Evaluation Row Name 01/26/25 103 Rehab Evaluation Document Type evaluation -RS Subjective [...] Function-Swallowing other (see comments) FEES 08/2022 at [facility] 2/2 cord dysfunction. Soft/ntl/no mixed/single drinks recommended [...] room air -RS Eating/Swallowing Skills fed by DOUGH CATCHER;other (see comments) pt in bilateral wrist restraints -RS Positioning During Eating upright in bed -RS Utensils Used spoon;cup;straw -RS Consistencies Trialed regular textures;mixed consistency;ice chips;thin liquids;pureed -RS Respiratory Respiratory Status WFL -RS Clinical Swallow Eval Oral Prep Phase WFL -RS Oral Transit WFL -RS Oral Residue WFL -RS Pharyngeal Phase no overt signs/symptoms of pharyngeal impairment -RS Esophageal Phase unremarkable -RS DOUGH CATCHER Evaluation Clinical Impression DOUGH CATCHER Swallowing Diagnosis swallow WFL/no suspected pharyngeal impairment -RS Swallow Criteria for Skilled Therapeutic Interventions Met no problems identified which require skilled intervention -RS Recommendations DOUGH CATCHER Diet Recommendation regular textures;thin liquids -RS Oral Care Recommendations Oral Care BID/PRN;Toothbrush -RS DOUGH CATCHER Rec. for Method of Medication Administration as tolerated -RS User Thompson (r) = Recorded By, (t) = Taken By, (c) = Cosigned By Initials Name Effective Dates Nic Conti MS CCC-DOUGH CATCHER 12/14/22 - EDUCATION The patient has been educated in the following areas: Dysphagia (Swallowing Impairment). DOUGH CATCHER GOALS Row Name 01/26/25 1030 Patient will demonstrate functional cognitive-linguistic skills for return to discharge environment Early with moderate cues -RS Time frame 2 weeks -RS Progress/Outcomes new goal -RS DOUGH CATCHER Diagnostic Treatment Patient will participate in further assessment in the following areas reading comprehension;graphicexpression -RS Time Frame (Diagnostic) 1 week -RS Progress/Outcomes (Additional Goal 1, DOUGH CATCHER) new goal -RS Comprehend Questions Goal 1 (DOUGH CATCHER) Improve Ability to Comprehend Questions Goal 1 (DOUGH CATCHER) simple yes/no questions;80%;with moderate cues(50-74%) -RS Time Frame (Comprehend Questions Goal 1, DOUGH CATCHER) 1 week -RS Progress/Outcomes (Comprehend Questions Goal 1, DOUGH CATCHER) new goal -RS Follow Directions Goal 2 (DOUGH CATCHER) Improve Ability to Follow Directions Goal 1 (DOUGH CATCHER) 1 step direction without objects;80%;with moderate cues (50-74%) -RS Time Frame (Follow Directions Goal 1, DOUGH CATCHER) 1 week -RS Progress/Outcomes (Follow Directions Goal 1, DOUGH CATCHER) new goal -RS Orientation Goal 1 (DOUGH CATCHER) Improve Orientation Through Goal 1 (DOUGH CATCHER) demonstrating orientation to day;demonstrating orientationto month;demonstrating orientation to year;80%;with moderate cues (50-74%) -RS Time Frame (Orientation Goal 1, DOUGH CATCHER) 1 week -RS Progress/Outcomes (Orientation Goal 1, DOUGH CATCHER) new goal -RS User Thompson (r) = Recorded By, (t) = Taken By, (c) = Cosigned By Initials Name Provider Type Nic Conti MS CCC-DOUGH CATCHER Speech and Language Pathologist Time Calculation: Time Calculation- DOUGH CATCHER Row Name 01/26/25 1305 Time Calculation- DOUGH CATCHER DOUGH CATCHER Start Time 1030 -RS DOUGH CATCHER Received On 01/26/25 -RS Untimed Charges 35040-RH Eval Speech and Production w/ Language Minutes 25 -RS 03397-YC Eval Oral Pharyng Swallow Minutes 40 -RS Total Minutes Untimed Charges Total Minutes 65 -RS Total Minutes 65 -RS User Thompson (r) = Recorded By, (t) = Taken By, (c) = Cosigned By Initials Name Provider Type RS Nic Martin MS CCC-DOUGH CATCHER Speech and Language Pathologist Therapy Charges for Today Code Description Service Date Service Provider Modifiers Qty [id number] HC ST EVAL ORAL PHARYNG SWALLOW 3 01/26/2025 Nic Martin MS CCC-DOYLE GN [id number] EVAL SPEECH AND PROD W LANG 2 01/26/2025 Nci Martin MS CCC- DOYLE GN 1 MS CLAUDE Gavin 01/26/2025 and [facility] - Speech Language Pathology Initial Evaluation [facility] Cognitive-Communication Evaluation Patient Name: Farrah Atkinson : 1950 Today's Date: 01/26/2025 Admit Date: 01/26/2025 Visit Dx: ICD-10-CM ICD-9-CM 1. 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 Hatchery Supervisor Dr Connor Jose ([facility] [place], [place]), advised stringent lifelong avoidance of all NSAIDS. [...] RIGHT; Surgeon: Bautista Luis MD; [facility] [facility]; Service: Orthopedics TUBAL ABDOMINAL LIGATION 1989 DOUGH CATCHER Recommendation and Plan Recommended discharge disposition is based on the functional assessment performed by PT/OT/Speech therapy (as applicable) and may not reflect the medical necessity determined by your provider or services covered by an individual patient's insurance plan or patient resource. DOUGH CATCHER Diagnosis: moderate-severe, cognitive-linguistic disorder (01/26/25 103) DOUGH CATCHER Diagnosis Comments: deficits are low level and are more c/w cognitive- linguistic deficits than language. (01/26/25 103) Swallow Criteria for Skilled Therapeutic Interventions Met: no problems identified which require skilled intervention (01/26/25 103) SLC Criteria for Skilled Therapy Interventions Met: yes (01/26/25 103) Anticipated Discharge Disposition (DOUGH CATCHER): inpatient rehabilitation facility, other (see comments) (no further dysphagia intervention indicated, DOUGH CATCHER will f/u w cog) (01/26/25 103) Therapy Frequency (DOUGH CATCHER SLC): 5 days per week (01/26/25 103) Predicted Duration Therapy Intervention (Days): 2 weeks (01/26/25 103) Oral Care Recommendations: Oral Care BID/PRN, Toothbrush (01/26/25 1030) Progress: improving (01/26/25 1304) DOUGH CATCHER EVALUATION (Last 72 Hours) DOUGH CATCHER SLC Evaluation Row Name 01/26/251029 Comprehension Assessment/Intervention [...] Speech Function WFL -RS Cognitive Assessment Intervention- DOUGH CATCHER Cognitive Function (Cognition) severe impairment -RS Orientation Status (Cognition) person;moderate impairment;severe impairment -RS Cognition, Comment oriented to year only -RS DOUGH CATCHER Evaluation Clinical Impressions DOUGH CATCHER Diagnosis moderate-severe;cognitive-linguistic disorder -RS DOUGH CATCHER Diagnosis Comments deficits are low level and are more c/w cognitive- linguistic deficits than language. -RS Rehab Potential/Prognosis good -RS SLC Criteria for Skilled Therapy Interventions Met yes -RS Recommendations Therapy Frequency (DOUGH CATCHER SLC) 5 days per week -RS Predicted Duration Therapy Intervention (Days) 2 weeks -RS Anticipated Discharge Disposition (DOUGH CATCHER) inpatient rehabilitation facility;other (see comments) no further dysphagia intervention indicated, DOUGH CATCHER will f/u w cog -RS User Thompson (r) = Recorded By, (t) = Taken By, (c) = Cosigned By Initials Name Effective Dates RS Nic Martin MS [facility]DOUGH CATCHER 12/14/22 - EDUCATION The patient has been educated in the following areas: Cognitive Impairment. DOUGH CATCHER GOALS Row Name 01/26/25 1030 Patient will demonstrate functional cognitive-linguistic skills for return to discharge environment Early with moderate cues -RS Time frame 2 weeks -RS Progress/Outcomes new goal -RS DOUGH CATCHER Diagnostic Treatment Patient will participate in further assessment in the following areas reading comprehension;graphicexpression -RS Time Frame (Diagnostic) 1 week -RS Progress/Outcomes (Additional Goal 1, DOUGH CATCHER) new goal -RS Comprehend Questions Goal 1 (DOUGH CATCHER) Improve Ability to Comprehend Questions Goal 1 (DOUGH CATCHER) simple yes/no questions;80%;with moderate cues(50-74%) -RS Time Frame (Comprehend Questions Goal 1, DOUGH CATCHER) 1 week -RS Progress/Outcomes (Comprehend Questions Goal 1, DOUGH CATCHER) new goal -RS Follow Directions Goal 2 (DOUGH CATCHER) Improve Ability to Follow Directions Goal 1 (DOUGH CATCHER) 1 step direction without objects;80%;with moderate cues (50-74%) -RS Time Frame (Follow Directions Goal 1, DOUGH CATCHER) 1 week -RS Progress/Outcomes (Follow Directions Goal 1, DOUGH CATCHER) new goal -RS Orientation Goal 1 (DOUGH CATCHER) Improve Orientation Through Goal 1 (DOUGH CATCHER) demonstrating orientation to day;demonstrating orientationto month;demonstrating orientation to year;80%;with moderate cues (50-74%) -RS Time Frame (Orientation Goal 1, DOUGH CATCHER) 1 week -RS Progress/Outcomes (Orientation Goal 1, DOUGH CATCHER) new goal -RS User Thompson (r) = Recorded By, (t) = Taken By, (c) = Cosigned By Initials Name Provider Type Nic Conti MS CCC-DOUGH CATCHER Speech and Language Pathologist Time Calculation: Time Calculation- DOUGH CATCHER Row Name 01/26/25 1305 Time Calculation- DOUGH CATCHER DOUGH CATCHER Start Time 1030 -RS DOUGH CATCHER Received On 01/26/25 -RS Untimed Charges 46291-TS Eval Speech and Production w/ Language Minutes 25 -RS 30362-GH Eval Oral Pharyng Swallow Minutes 40 -RS Total Minutes Untimed Charges Total Minutes 65 -RS Total Minutes 65 -RS User Thompson (r) = Recorded By, (t) = Taken By, (c) = Cosigned By Initials Name Provider Type RS Nic Martin MS CCC-DOUGH CATCHER Speech and Language Pathologist Therapy Charges for Today Code Description Service Date Service Provider Modifiers Qty [id number] HC ST EVAL ORAL PHARYNG SWALLOW 3 01/26/2025 Nic Martin MS CCC-DOYLE GN [address] EVAL SPEECH AND PROD W LANG 2 01/26/2025 Nic Martin MS CCC- DOUGH CATCHER GN 1 MS CLAUDE Gavin 01/26/2025 * Case Management/Social Work - Shea Bonds RN - 01/26/2025 12:36 PM EDT Discharge Planning Assessment JOYCELYN Grant Patient Name: Farrah Atkinson Today's Date: 01/26/2025 [...] with family Patient/Family Anticipated Services at Transition manager user experienceassistant store manager operations Anticipated family or friend will provide Discharge [...] initiate discharge planning. Confirmed their residence in [facility]; PCP is Connor Gomez; primary insurance is Medicare and secondary is Zi (spouse to bring card to registration). Patient reported to have prescription drug coverage and uses [facility] in [place]. Patient reported to be independent with ADLs and mobility prior to admission; no DME or home health services utilized. Discharge goal is home. Case Management will continue to follow and assist with discharge plan. Continued Care and Services - Admitted Since 01/26/2025 No active coordination exists. Demographic Summary Row Name 01/26/25 1222 General Information Referral Source admission list Reason for Consult discharge planning Preferred Language Gabonese Contact Information Permission Granted to Share Info With manager user experiencequality assurance test program manager Status Row Name 01/26/25 1231 Functional [...] total knee replacement, right Chronic pain syndrome terminologist prescription opiate use Chronic arthritis associated with [...] resulted in removal iof 13 precancer[address]ps[address] Hatchery Supervisor Dr Connor Jose (retired, [place], [place]), advised stringent lifelong avoidance of all [...] ARTHROPLASTY RIGHT; Surgeon: Bautista Luis MD; Location: [facility] OR; Service: Orthopedics TUBAL ABDOMINAL LIGATION 1989 General Information Row Name 01/26/25 1315 OT Time and Intention Document Type evaluation -KF Mode of Treatment occupational therapy;co-treatment -KF Row Name 01/26/25 1312 General Information Patient Profile Reviewed yes -KF Prior Level of Function independent:;all household mobility;community mobility;bed mobility;ADL's;driving Pt is a somewhat questionable historian, reports being Nomi with rollator. History of falls. -KF Existing Precautions/Restrictions fall;other (see comments) duran -KF Barriers to Rehab medically complex;previous functional deficit -KF Row Name 01/26/25 1311 Living Environment Current Living Arrangements home -KF People in Home spouse -KF Row Name 01/26/25 1315 Home Main Entrance Number of Stairs, Main Entrance other (see comments) Pt reports she does have stairs at home, but was unsure how many. -KF Row Name 01/26/25 1317 Cognition Orientation Status (Cognition) oriented x 3 -KF Row Name 01/26/25 1319 Safety Issues/Impairments Affecting Functional Mobility Safety Issues [...] Type KF Shelly Saleem, OT Occupational Therapist Mobility/ADL's Row Name 01/26/251315 Bed Mobility Bed Mobility supine-sit - Supine-Sit Early (Bed Mobility) standby assist - Assistive Device (Bed Mobility) bed rails;head of bed elevated -KF Comment, (Bed Mobility) Cues for sequence and safety awareness. Pt impulsively moving toward EOB prior to line management being completed. - Row Name 01/26/251315 Transfers Transfers sit-stand transfer;stand-sit transfer - Row Name 01/26/251315 Sit-Stand Transfer Sit-Stand Early (Transfers) minimum assist (75% patient effort);2 person assist;verbal cues - Assistive Device (Sit-Stand Transfers) walker, front-wheeled -KF Comment, (Sit-Stand Transfer) x1 from EOB - Row Name 01/26/251315 Stand-Sit Transfer Stand-Sit Early (Transfers) minimum assist (75% patient effort);2 person [...] Row Name 01/26/251315 Upper Body Dressing Assessment/Training Early Level (Upper Body Dressing) don;doff;front opening garment;moderate assist (50% patient effort) - Position (Upper Body Dressing) edge of bed sitting;unsupported sitting - Row Name 01/26/251315 Lower Body Dressing Assessment/Training Early Level (Lower Body Dressing) don;socks;dependent (less than 25% patient effort) - Position (Lower Body Dressing) edge of bed sitting - Row Name 01/26/25 1316 Self-Feeding Assessment/Training Early Level (Feeding) liquids to mouth;maximum assist (25% [...] strength deficits identified - Row Name 01/26/25 131 Upper Extremity (Manual Muscle Testing) Comment, MMT: [...] (OT) Activity/Assistive Device (Transfer Goal 1, OT) [id number]-[id number]/pmrti-jd-[id number];commode -KF Early Level/Cues Needed (Transfer Goal 1, OT) standby assist -KF Time Frame (Transfer Goal 1, OT) terminologist goal (LTG);10 days -KF Progress/Outcome (Transfer Goal 1, OT) new goal -KF Row Name 01/26/25 1321 Dressing Goal 1 (OT) Activity/Device (Dressing Goal 1, OT) upper body dressing;lower body dressing -KF Early/Cues Needed (Dressing Goal 1, OT) standby assist -KF Time Frame (Dressing Goal 1, OT) short term goal (STG);5 days -KF Strategies/Barriers (Dressing Goal 1, OT) ADL AE PRN -KF Progress/Outcome (Dressing Goal 1, OT) new goal -KF Row Name 01/26/25 1321 Grooming Goal 1 (OT) Activity/Device (Grooming Goal 1, OT) hair care;oral care;wash face, hands -KF Early (Grooming Goal 1, OT) standby assist -KF Time Frame (Grooming Goal 1, OT) senior care goal (LTG);10 days -KF Strategies/Barriers (Grooming Goal [...] Occupational Therapist Clinical Impression Row Name 01/26/25 1316 Pain Assessment Pretreatment Pain Rating 10/10 -KF Posttreatment Pain Rating 10/10 -KF Pain Side/Orientation generalized -KF Pain Management Interventions activity modification encouraged;exercise or physical activity utilized;positioning techniques utilized;nursing notified -KF Response to Pain Interventions no change per patient report -KF Row Name 01/26/25 1313 Plan of Care Review Plan of Care [...] pt progress closely. -KF Row Name 01/26/25 4173 Therapy Assessment/Plan (OT) Patient/Family Therapy Goal Statement [...] 12 -REGI Row Name 01/26/25 1321 Modified Acworth Scale Pre-Stroke Modified Dimitry Scale 6 - Unable to determine (UTD) from the medical record documentation - Modified Acworth Scale 4 - Moderately severe disability. Unable to walk without assistance, and unable to attend to own bodily needs without assistance. - Row Name 01/26/25 1321 Functional Assessment Outcome Measure Options AM-PAC 6 Clicks Daily Activity (OT);Modified Acworth -KF User Thompson (r) = Recorded By, (t) = Taken By, (c) = Cosigned By Initials Name Provider Type Lainey Zaman, SPENCER Registered Nurse Shelly Lam OT Occupational Therapist Minnie Solomon RN Registered Nurse Occupational Therapy Education Title: PT OT DOUGH CATCHER Therapies (In Progress) Topic: Occupational Therapy (In Progress) Point: ADL training (In Progress) Learning Progress Summary Patient Acceptance, TB,E, NR by at 01/26/2025 1144 Point: Precautions (In Progress) Learning Progress Summary Patient Acceptance, TB,E, NR by at 01/26/2025 1144 Point: Body mechanics (In Progress) Learning Progress Summary Patient Acceptance, TB,E, NR by at 01/26/2025 1144 User Thompson Initials Effective Dates Name Provider Type [facility] 11/08/22 - Shelly Saleem OT Occupational Therapist [...] Description Service Date Service Provider Modifiers Qty [id number] HC OT EVAL MOD COMPLEXITY 4 01/26/2025 [...] total knee replacement, right Chronic pain syndrome skilled nursing prescription opiate use Chronic arthritis associated with [...] resulted in removal iof 13 precancerous polyps. Hatchery Supervisor Dr Connor Jose (retired, [place], [place]), advised stringent lifelong avoidance of all NSAIDS. [...] RIGHT; Surgeon: Bautista Luis MD; Location: [facility]; Service: Orthopedics TUBAL ABDOMINAL LIGATION 1989 General Information Row Name 01/26/25 1321 Physical Therapy Time and Intention Document Type evaluation -TT Mode of Treatment physical therapy;co-treatment -TT Row Name 01/26/25 1326 General Information Patient Profile Reviewed yes -TT Prior Level of Function independent:;all household mobility;community mobility;ADL's;driving Pt is somewhat questionnable historian, Rollator at baseline. Noting history of falls, unable to describe -TT Existing Precautions/Restrictions fall;other (see comments) Duran -TT Barriers to Rehab medically complex;previous functional deficit -TT Row Name 01/26/25 6411 Living Environment Current Living Arrangements home -TT People in Home spouse -TT Row Name 01/26/25 1324 Home Main Entrance Number of Stairs, Main [...] Bed Mobility Bed Mobility supine-sit -TT Supine-Sit Early (Bed Mobility) standby assist -TT Assistive Device (Bed Mobility) bed rails;head of bed elevated -TT Comment, (Bed Mobility) Cues for improved sequencing and safety awareness. Impulsively attempting to transition to EOb prior to appropriate line management requiring frequent cues. -TT Row Name 01/26/25 1331 Transfers Comment, (Transfers) STS from EOB w/ FWW. -TT Row Name 01/26/25 1331 Sit-Stand Transfer Sit-Stand Early (Transfers) minimum assist (75% patient effort);2 person assist;verbal cues -TT Assistive Device (Sit-Stand Transfers) walker, front-wheeled -TT Comment, (Sit-Stand Transfer) Cues for UE placement and improved initiation. Physical assistance d/t impaired initiation and unsteadiness. W/ return to sitting, cues for improved AD management and eccentric control. -TT Row Name 01/26/25 1331 Gait/Stairs (Locomotion) Early Level (Gait) nonverbal cues (demo/gesture);verbal cues;minimum assist [...] PT Physical Therapist Obj/Interventions Row Name 01/26/25 1334 Range of Motion Comprehensive General Range of Motion bilateral lower extremity ROM WFL -TT Row Name 01/26/25 1334 Strength Comprehensive (MMT) General Manual Muscle Testing (MMT) Assessment lower extremity strength deficits identified -TT Comment, General Manual Muscle Testing (MMT) Assessment BLE grossly 4/5 observed w/ functional mobility -TT Row Name 01/26/25 1330 Balance Balance Assessment sitting static balance;sitting dynamic [...] task;weight shifting activity -TT Row Name 01/26/25 1336 Sensory Assessment (Somatosensory) Sensory Assessment (Somatosensory) LE sensation intact -TT User Thompson (r) = Recorded By, (t) = Taken By, (c) = Cosigned By Initials Name Provider Type TT Dinora Huston PT Physical Therapist Goals/Plan Row Name 01/26/25 3901 Bed Mobility Goal 1 (PT) Activity/Assistive Device (Bed Mobility Goal 1, PT) sit to supine/supine to sit -TT Early Level/Cues Needed (Bed Mobility Goal 1, PT) independent -TT Time Frame (Bed Mobility Goal 1, PT) short term goal (STG);4 days -TT Progress/Outcomes (Bed Mobility Goal 1, PT) new goal -TT Row Name 01/26/25 4229 Transfer Goal 1 (PT) Activity/Assistive Device (Transfer Goal 1, PT) ipn-rh-ldveb/fgutk-hp-clw;iyv-pk-nmzuz/tloos-lu-heb-TT Early Level/Cues Needed (Transfer Goal 1, PT) modified independence -TT Time Frame (Transfer Goal 1, PT) terminologist goal (LTG);10 days -TT Progress/Outcome (Transfer Goal 1, PT) new goal -TT Row Name 01/26/25 2433 Gait Training Goal 1 (PT) Activity/Assistive Device (Gait Training Goal 1, PT) gait (walking locomotion);decrease fall risk;increase endurance/gait distance -TT Early Level (Gait Training Goal 1, PT) modified independence -TT Distance (Gait Training Goal 1, PT) 250ft -TT Time Frame (Gait Training Goal 1, PT) terminologist goal (LTG);10 days -TT Progress/Outcome (Gait Training Goal 1, PT) new goal -TT Row Name 01/26/25 9614 Therapy Assessment/Plan (PT) Planned Therapy Interventions (PT) balance training;bed mobility training;gait training;home exercise program;patient/family education;postural re- education;stair training;strengthening;transfer training -TT User Thompson (r) = Recorded By, (t) = Taken By, (c) = Cosigned By Initials Name Provider Type TT Dinora Huston, PT Physical Therapist Clinical Impression Row Name 01/26/25 9157 Pain Pretreatment Pain Rating 10/10 -TT Posttreatment Pain Rating 10/10 -TT Pain Side/Orientation generalized -TT Pain Management Interventions activity modification encouraged;exercise or physical activity utilized;nursing notified;positioning techniques utilized -TT Response to Pain Interventions no change per patient report -TT Row Name 01/26/25 2813 Plan of Care Review Plan of Care [...] closely monitor pt's progress.-TT Row Name 01/26/25 3835 Therapy Assessment/Plan (PT) Patient/Family Therapy Goals Statement [...] Patient Position Sitting -TT Row Name 01/26/25 5505 Positioning and Restraints Pre-Treatment Position in bed [...] Physical Therapist Outcome Measures Row Name 01/26/25 0208 01/26/25 0800 How much help from another [...] 01/26/25 1321 Modified Dimitry Scale Pre-Stroke Modified Acworth Scale 6 - Unable to determine (UTD) from the medical record documentation -TT 6 - Unable to determine (UTD) from the medical record documentation - Modified Acworth Scale 4 - Moderately severe disability. Unable to walk without assistance, and unable to attend to own bodily needs without assistance. -TT 4 - Moderately severe disability. Unable towalk without assistance, and unable to attend to own bodily needs without assistance. - Row Name 01/26/25 1338 01/26/25 1321 Functional Assessment Outcome Measure Options AM-PAC 6 Clicks Basic Mobility (PT);Modified Acworth -TT AM-PAC 6 Clicks Daily Activity (OT);Modified Acworth -KF User Thompson (r) = Recorded By, (t) = Taken By, (c) = Cosigned By Initials Name Provider Type Lainey Torres, RN Registered Nurse Shelly Lam, OT Occupational Therapist Minnie Solomon, SPENCER Registered Nurse TT Dinora Huston, PT Physical Therapist Physical Therapy Education Title: PT OT DOUGH CATCHER Therapies (In Progress) Topic: Physical Therapy (In [...] Complexity): moderate complexity PT Charges Row Name 01/26/254 Time Calculation Start Time 1144 -TT PT [...] Description Service Date Service Provider Modifiers Qty [id number] HC PT EVAL MOD COMPLEXITY 4 01/26/2025 Dinora Huston, PT GP 1 PT G-Codes Outcome Measure Options: AM-PAC 6 Clicks Basic Mobility (PT), Modified Dimitry AM-PAC 6 Clicks Score (PT): 17 AM-PAC 6 Clicks Score (OT): 14 Modified Acworth Scale: 4 - Moderately severe disability. Unable [...] * Telemetry Scan (01/29/2025 2:57 AM EDT) [facility] ORDERABLES Final Result * Potassium (01/28/2025 9:51 PM EDT) [facility] Potassium 3.8 3.5 - 5.2 mmol/L 01/28/2025 10:10 PM EDT [facility] Blood Venipuncture / Unknown 01/28/2025 9:51 PM EDT 01/28/2025 9:57 PM EDT us Jessica Valdovinos DO LAB BLOOD ORDERABLES F inal Result [facility]
[address] [place] [address], [place] [phone] * (ABNORMAL) CBC (No Diff) (01/28/2025 10:34 AM EDT) WBC 12.20(H) 3.40 - 10.80 10*3/mm3 01/28/2025 11:45 AM EDT [facility] RBC 3.86 3.77 - 5.28 10*6/mm3 01/28/2025 11:45 AM EDT [facility] Hemoglobin 11.6(L) 12.0 - 15.9 g/dL 01/28/2025 11:45 AM EDT [facility] Hematocrit 35.5 34.0 - 46.6 % 01/28/2025 11:45 AM EDT [facility] MCV 92.0 79.0 - 97.0 fL 01/28/2025 11:45 AM EDT [facility] MCH 30.1 26.6 - 33.0 pg 01/28/2025 11:45 AM EDT [facility] MCHC 32.7 31.5 - 35.7 g/dL 01/28/2025 11:45 AM EDT [facility] RDW 13.5 12.3 - 15.4 % 01/28/2025 11:45 AM EDT [facility] RDW-SD 46.2 37.0 - 54.0 fl 01/28/2025 11:45 AM EDT [facility] MPV 9.6 6.0 - 12.0 fL 01/28/2025 11:45 AM EDT [facility] Platelets 301 140 - 450 10*3/mm3 01/28/2025 11:45 AM EDT [facility] Blood Venipuncture / Unknown 01/28/2025 10:34 AM EDT 01/28/2025 11:41 AM EDT us Andrew Barkley MD LAB BLOOD ORDERABLES Final R esult [facility]
[address] [place] [address], * (ABNORMAL) Basic Metabolic Panel (01/28/2025 10:34 AM EDT) Glucose 117(H) 65 - 99 mg/dL 01/28/2025 12:14 PM EDT [facility] BUN 6.4(L) 8.0 - 23.0 mg/dL 01/28/2025 12:14 PM EDT [facility] Creatinine 0.85 0.57 - 1.00 mg/dL 01/28/2025 12:14 PM EDT [facility] Sodium 139 136 - 145 mmol/L 01/28/2025 12:14 PM EDT [facility] Potassium 3.3(L) 3.5 - 5.2 mmol/L 01/28/2025 12:14 PM EDT [facility] Chloride 103 98 - 107 mmol/L 01/28/2025 12:14 PM EDT [facility] CO2 20.6(L) 22.0 - 29.0 mmol/L 01/28/2025 12:14 PM EDT [facility] Calcium 8.8 8.6 - 10.5 mg/dL 01/28/2025 12:14 PM EDT [facility] BUN/Creatinine Ratio 7.5 7.0 - 25.0 01/28/2025 12:14 PM EDT [facility] Anion Gap 15.4(H) 5.0 - 15.0 mmol/L 01/28/2025 12:14 PM EDT [facility] eGFR 72.4 >60.0 mL/min/1.7 3 01/28/2025 12:14 PM EDT [facility] Blood Venipuncture / Unknown 01/28/2025 10:34 AM EDT 01/28/2025 11:41 AM EDT Narrative [facility] - 01/28/2025 12:14 PM EDT [...] ORDERABLES Final R esult Performing Organization Address City/[facility] Co de Phone Number [facility]
[address] [place] [address], * Telemetry Scan (01/28/2025 8:20 AM EDT) [facility] ECG ORDERABLES Final Result * Potassium (01/27/2025 6:45 PM EDT) Pathologist [facility] Potassium 3.8 3.5 - 5.2 mmol/L 01/27/2025 7:27 PM EDT [facility] Comment:Specimen hemolyzed. Result may be falsely elevated. Blood Venipuncture / Unknown 01/27/2025 6:45 PM EDT 01/27/2025 7:06 PM EDT Andrew Barkley MD LAB BLOOD ORDERABLES Final R esult Performing Organization Address City/[facility]/ZIP Co de Phone Number [facility]
[address] [place] [address], [place] [phone] * (ABNORMAL) Basic Metabolic Panel (01/27/2025 4:54 AM EDT) Glucose 92 65 - 99 mg/dL 01/27/2025 5:36 AM EDT [facility] BUN 10.9 8.0 - 23.0 mg/dL 01/27/2025 5:36 AM EDT [facility] Creatinine 0.96 0.57 - 1.00 mg/dL 01/27/2025 5:36 AM EDT [facility] Sodium 141 136 - 145 mmol/L 01/27/2025 5:36 AM EDT [facility] Potassium 3.2(L) 3.5 - 5.2 mmol/L 01/27/2025 5:36 AM EDT [facility] Chloride 107 98 - 107 mmol/L 01/27/2025 5:36 AM EDT [facility] CO2 22.6 22.0 - 29.0 mmol/L 01/27/2025 5:36 AM EDT [facility] Calcium 8.6 8.6 - 10.5 mg/dL 01/27/2025 5:36 AM EDT [facility] BUN/Creatinine Ratio 11.4 7.0 - 25.0 01/27/2025 5:36 AM T [facility] Anion Gap 11.4 5.0 - 15.0 mmol/L 01/27/2025 5:36 AM [facility] eGFR 62.6 >60.0 mL/min/1.7 3 01/27/2025 5:36 AM T [facility] Blood Venipuncture / Unknown 01/27/2025 4:54 AM EDT 01/27/2025 5:02 AM EDT [facility] - 01/27/2025 5:36 AM [...] include race as a factor Maru Martinez SENIOR HEALTH EDUCATOR LAB BLOOD ORDERABLES Final Result [facility]
[address] [place] [address], * (ABNORMAL) CBC (No Diff) (01/27/2025 4:54 AM EDT) WBC 9.35 3.40 - 10.80 10*3/mm3 01/27/2025 5:32 AM EDT [facility] Comment:Result checked RBC 3.40(L) 3.77 - 5.28 10*6/mm3 01/27/2025 5:32 AM EDT [facility] Hemoglobin 10.2(L) 12.0 - 15.9 g/dL 01/27/2025 5:32 AM EDT [facility] Hematocrit 32.3(L) 34.0 - 46.6 % 01/27/2025 5:32 AM EDT [facility] MCV 95.0 79.0 - 97.0 fL 01/27/2025 5:32 AM EDT [facility] MCH 30.0 26.6 - 33.0 pg 01/27/2025 5:32 AM EDT [facility] MCHC 31.6 31.5 - 35.7 g/dL 01/27/2025 5:32 AM EDT [facility] RDW 13.8 12.3 - 15.4 % 01/27/2025 5:32 AM EDT [facility] RDW-SD 47.9 37.0 - 54.0 fl 01/27/2025 5:32 AM EDT [facility] MPV 9.1 6.0 - 12.0 fL 01/27/2025 5:32 AM EDT [facility] Platelets 226 140 - 450 10*3/mm3 01/27/2025 5:32 AM EDT [facility] Blood Venipuncture / Unknown 01/27/2025 4:54 AM EDT 01/27/2025 5:02 AM EDT Maru Martinez SENIOR HEALTH EDUCATOR LAB BLOOD ORDERABLES Final Result [facility]
[address] [id number], * MRI Brain With Contrast (01/27/2025 1:28 AM EDT) Anatomical Region Laterality Modality Head, Neck N/A Magnetic Resonan ce 01/27/2025 2:00 AM EDT Impressions 01/27/2025 2:05 AM EDT Impression: No pathologic contrast enhancement. 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 Electronically Signed: Jesus Peterson MD 01/27/2025 2:05 AM EDT Workstation ID: [id number] Narrative 01/27/2025 2:05 AM EDT MRI BRAIN [...] MD 01/27/2025 2:05 AM EDT Workstation ID: [id number] Adama Maher MD IMG MRI ORDERABLES Final Result * POC Glucose Once (01/26/2025 5:38 PM EDT) Glucose 91 70 - 130 mg/dL 01/26/2025 5:40 PM EDT [facility] Comment:Serial Number: [id number]: [id number] Nova Comment 1 Follow unit protocol 01/26/2025 5:40 PM EDT [facility] Blood 01/26/2025 5:38 PM EDT 01/26/2025 5:40 PM EDT Andrew Barkley MD POINT OF CARE TEST ORDERABLE S Final Result [facility]
[address] [place] [address], * POC Glucose Once (01/26/2025 12:19 PM EDT) Glucose 98 70 - 130 mg/dL 01/26/2025 12:22 PM EDT [facility] Comment:Serial Number: [id number]: [id number] Nova Comment 1 Follow unit protocol 01/26/2025 12:22 PM EDT [facility] Blood 01/26/2025 12:1 9 PM EDT 01/26/2025 12:22 PM EDT us Andrew Barkley MD POINT OF CARE TEST ORDERABLE S Final Result [facility]
[address] [place] [address], * ECHO COMPLETE W/ DOPPLER AND COLOR [...] - 2.0 mmol/L 01/26/2025 11:33 AM EDT [facility] Comment:Falsely depressed re sults may occur on samples drawn from patients receiving N-Acetylcysteine (NAC) or Metamizole. Blood Venipuncture / Unknown 01/26/2025 10:44 AM EDT 01/26/2025 11:00 AM EDT Maru Martinez SENIOR HEALTH EDUCATOR LAB BLOOD ORDERABLES Final Result Performing Organization Address City/[facility]/ZIP Co de Phone Number [facility]
[address] [place] [address], * (ABNORMAL) STAT Lactic Acid, Reflex (01/26/2025 6:51 AM EDT) Lactate 2.2(HH) 0.5 - 2.0 mmol/L 01/26/2025 7:24 AM EDT [facility] Comment:Falsely depressed re sults may occur on samples drawn from patients receiving N-Acetylcysteine (NAC) or Metamizole. Blood Structure of right upper limb / Unknown Venipuncture / Unknown 01/26/2025 6:51 AM EDT 01/26/2025 6:59 AM EDT Maru Martinez SENIOR HEALTH EDUCATOR LAB BLOOD ORDERABLES Final Result [facility]
[address] [place] [address], * (ABNORMAL) Vancomycin, Random (01/26/2025 6:51 AM EDT) Vancomycin Random 42.10(HH) 5.00 - 40.00 mcg/mL 01/26/2025 7:53 AM EDT [facility] Blood Structure of right upper limb / Unknown Venipuncture / Unknown 01/26/2025 6:51 AM EDT 01/26/2025 7:01 AM EDT Narrative [facility] - 01/26/2025 7:53 AM EDT Therapeutic Ranges for Vancomycin Vancomycin Random 5.0-40.0 mcg/mL Vancomycin Trough 5.0-20.0 mcg/mL Vancomycin Peak 20.0-40.0 mcg/mL Aline CernaD LAB BLOOD ORDERABLES Final R esult Performing Organization Address City/[facility] Co de Phone Number [facility]
[address] [place] [address], * (ABNORMAL) Hemoglobin A1c (01/26/2025 6:51 AM EDT) Hemoglobin A1C 5.67(H) 4.80 - 5.60 % 01/26/2025 8:56 AM EDT [facility] Blood Structure of right upper limb / Unknown Venipuncture / Unknown 01/26/2025 6:51 AM EDT 01/26/2025 7:01 AM EDT Narrative [facility] - 01/26/2025 8:56 AM EDT Hemoglobin A1C Ranges: Increased Risk for Diabetes 5.7% to 6.4% Diabetes >= 6.5% Diabetic Goal < 7.0% Rayshawn Hercules PA-C LAB BLOOD ORDERABLE S Final Result [facility]
[address] [place] [address], * EEG AWAKE OR ASLEEP PORTABLE (01/26/2025 6:30 AM EDT) Impressions NEUROLOGY - 01/26/2025 8:58 AM EDT Diffuse cerebral dysfunction of at least mild degree, nonspecific but most commonly seen due to toxic/metabolic cause No ongoing seizures are present This report is transcribed using the [employer] dictation system. Narrative NEUROLOGY - 01/26/2025 8:58 [...] - 130 mg/dL 01/26/2025 5:23 AM EDT [facility] Comment:Serial Number: [id number]: [id number] Blood 01/26/2025 5:20 AM EDT 01/26/2025 5:23 AM EDT Rayshawn Baldwin MD POINT OF CARE TEST ORDERABLE S Final Result [facility]
[address] [place] [address], * (ABNORMAL) High Sensitivity Troponin T 1Hr (01/26/2025 3:28 AM EDT) HS Troponin T 22(H) <14 ng/L 01/26/2025 3:57 AM EDT [facility] Troponin T Numeric Delta -1 ng/L 01/26/2025 3:57 AM EDT [facility] Troponin T % Delta -4 Abnormal if >/= 20% 01/26/2025 3:57 AM EDT [facility] Blood Line / Unknown 01/26/2025 3: 28 AM EDT 01/26/2025 3:37 AM EDT Narrative [facility] - 01/26/2025 3:57 AM EDT [...] to an underlying chronic condition. Maru Martinez SENIOR HEALTH EDUCATOR LAB BLOOD ORDERABLES Final Result [facility]
[address] [place] [address], * ECG 12 Lead QT Measurement (01/26/2025 [...] Confirmed By: NEERAJ KHAN MD Maru Martinez SENIOR HEALTH EDUCATOR ECG ORDERABLES Final Resu lt ECG * (ABNORMAL) Urinalysis, Microscopic Only - Indwelling Urethral Catheter (01/26/2025 2:57 AM EDT) RBC, UA 6-10(A) None Seen, 0-2 /HPF 01/26/2025 3:25 AM EDT [facility] WBC, UA 11-20(A) None Seen, 0-2 /HPF 01/26/2025 3:25 AM EDT [facility] Bacteria, UA None Seen None Seen /HPF 01/26/2025 3:25 AM EDT [facility] Squamous Epithelial Cells, UA 0-2 None Seen, 0-2 /HPF 01/26/2025 3:25 AM EDT [facility] Hyaline Casts, UA None Seen None Seen /LPF 01/26/2025 3:25 AM EDT [facility] Methodology Automated Microscopy 01/26/2025 3:25 AM EDT [facility] Urine (Indwelling Urethral Catheter) Collection / Unknown 01/26/2025 2:57 AM EDT 01/26/2025 3:13 AM EDT Maru Martinez SENIOR HEALTH EDUCATOR URINE ORDERABLES Final Res ult [facility]
[address] [place] [address], * Fentanyl, Urine - Indwelling Urethral Catheter (01/26/2025 2:57 AM EDT) Fentanyl, Urine Negative Negative 01/26/2025 3:40 AM EDT [facility] Urine (Indwelling Urethral Catheter) Collection / Unknown 01/26/2025 2:57 AM EDT 01/26/2025 3:13 AM EDT [facility] - 01/26/2025 3:40 AM EDT Negative [...] unconfirmed results are used. us Maru Martinez SENIOR HEALTH EDUCATOR URINE ORDERABLES Final Res ult [facility]
[address] [place] [address], * (ABNORMAL) Urine Drug Screen - Indwelling Urethral Catheter (01/26/2025 2:57 AM EDT) Pathologist [facility] THC, Screen, Urine Negative Negative 2024 3:27 AM EDT [facility] Phencyclidine (PCP), Urine Negative Negative 01/26/2025 3:27 AM EDT [facility] Cocaine Screen, Urine Negative Negative 01/26/2025 3:27 AM EDT [facility] Methamphetamine, Ur Negative Negative 01/26/2025 3:27 AM EDT [facility] Opiate Screen Negative Negative 01/26/2025 3:27 AM EDT [facility] Amphetamine Screen, Urine Negative Negative 01/26/2025 3:27 AM EDT [facility] Benzodiazepine Screen, Urine Negative Negative 01/26/2025 3:27 AM EDT [facility] Tricyclic Antidepressants Screen Positive(A) Negative 01/26/2025 3:27 AM EDT [facility] Methadone Screen, Urine Negative Negative 01/26/2025 3:27 AM EDT [facility] Barbiturates Screen, Urine Negative Negative 01/26/2025 3:27 AM EDT [facility] Oxycodone Screen, Urine Positive(A) Negative 01/26/2025 3:27 AM EDT [facility] Buprenorphine, Screen, Urine Negative Negative 01/26/2025 3:27 AM EDT [facility] Urine (Indwelling Urethral Catheter) Collection / Unknown 01/26/2025 2:57 AM EDT 01/26/2025 3:13 AM EDT [facility] - 01/26/2025 3:27 AM [...] unconfirmed results are used. us Maru Martinez SENIOR HEALTH EDUCATOR URINE ORDERABLES Final Res ult [facility]
[address] [place] [address], * (ABNORMAL) Urinalysis With Microscopic If Indicated (No Culture) - Indwelling Urethral Catheter (01/26/2025 2:57 AM EDT) Color, UA Yellow Yellow, Straw 01/26/2025 3:25 AM EDT [facility] Appearance, UA Clear Clear 01/26/2025 3:25 AM EDT [facility] pH, UA 5.5 5.0 - 8.0 01/26/2025 3:25 AM EDT [facility] Specific [place], UA >1.030(H) 1.005 - 1.030 01/26/2025 3:25 AM EDT [facility] Glucose, UA Negative Negative 01/26/2025 3:25 AM EDT [facility] Ketones, UA Negative Negative 01/26/2025 3:25 AM EDT [facility] Bilirubin, UA Negative Negative 01/26/2025 3:25 AM EDT [facility] Blood, UA Moderate (2+)(A) Negative 01/26/2025 3:25 AM EDT [facility] Protein, UA Trace(A) Negative 01/26/2025 3:25 AM EDT [facility] Leuk Esterase, UA Small (1+)(A) Negative 01/26/2025 3:25 AM EDT [facility] Nitrite, UA Negative Negative 01/26/2025 3:25 AM EDT [facility] Urobilinogen, UA 0.2 E.U./dL 0.2 - 1.0 E.U./dL 01/26/2025 3:25 AM EDT [facility] Urine (Indwelling Urethral Catheter) Collection / Unknown 01/26/2025 2:57 AM EDT 01/26/2025 3:13 AM EDT us Maru Martinez SENIOR HEALTH EDUCATOR URINE ORDERABLES Final Res ult [facility]
[address] [place] [address], * (ABNORMAL) POC Glucose Once (01/26/2025 2:38 AM EDT) Glucose 150(H) 70 - 130 mg/dL 01/26/2025 5:06 AM EDT [facility] Comment:Serial Number: [id number]: [id number] Blood 01/26/2025 2:38 AM EDT 01/26/2025 5:06 AM EDT Rayshawn Baldwin MD POINT OF CARE TEST ORDERABLE S Final Result Performing Organization Address City/[facility]/ZIP Co de Phone Number [facility]
[address] [place] [address], * LSAC Slide Creation (01/26/2025 2:09 AM EDT) Blood Line / Unknown 01/26/2025 2: 09 AM EDT 01/26/2025 2:20 AM EDT Maru Martinez SENIOR HEALTH EDUCATOR LAB BLOOD ORDER ONLY Final Result Performing Organization Address [facility] Co de Phone Number [facility]
[address] [place] [address], * (ABNORMAL) CBC Auto Differential (01/26/2025 2:09 AM EDT) WBC 18.88(H) 3.40 - 10.80 10*3/mm3 01/26/2025 2:48 AM EDT [facility] RBC 3.98 3.77 - 5.28 10*6/mm3 01/26/2025 2:48 AM EDT [facility] Hemoglobin 11.6(L) 12.0 - 15.9 g/dL 01/26/2025 2:48 AM EDT [facility] Hematocrit 35.6 34.0 - 46.6 % 01/26/2025 2:48 AM EDT [facility] MCV 89.4 79.0 - 97.0 fL 01/26/2025 2:48 AM EDT [facility] MCH 29.1 26.6 - 33.0 pg 01/26/2025 2:48 AM EDT [facility] MCHC 32.6 31.5 - 35.7 g/dL 01/26/2025 2:48 AM EDT [facility] RDW 13.6 12.3 - 15.4 % 01/26/2025 2:48 AM EDT [facility] RDW-SD 45.1 37.0 - 54.0 fl 01/26/2025 2:48 AM EDT [facility] MPV 9.4 6.0 - 12.0 fL 01/26/2025 2:48 AM EDT [facility] Platelets 411 140 - 450 10*3/mm3 01/26/2025 2:48 AM EDT [facility] Blood Line / Unknown 01/26/2025 2: 09 AM EDT 01/26/2025 2:20 AM EDT Maru Martinez SENIOR HEALTH EDUCATOR LAB BLOOD ORDERABLES Final Result [facility]
[address] [place] [address], * (ABNORMAL) Manual Differential (01/26/2025 2:09 AM EDT) Neutrophil % 81.0(H) 42.7 - 76.0 % 01/26/2025 2:48 AM EDT [facility] Lymphocyte % 9.0(L) 19.6 - 45.3 % 01/26/2025 2:48 AM EDT [facility] Monocyte % 3.0(L) 5.0 - 12.0 % 01/26/2025 2:48 AM EDT [facility] Eosinophil % 0.0(L) 0.3 - 6.2 % 01/26/2025 2:48 AM EDT [facility] Basophil % 0.0 0.0 - 1.5 % 01/26/2025 2:48 AM EDT [facility] Bands % 5.0 0.0 - 5.0 % 01/26/2025 2:48 AM EDT [facility] Atypical Lymphocyte % 2.0 0.0 - 5.0 % 01/26/2025 2:48 AM EDT [facility] Neutrophils Absolute 16.24(H) 1.70 - 7.00 10*3/mm3 01/26/2025 2:48 AM EDT [facility] Lymphocytes Absolute 2.08 0.70 - 3.10 10*3/mm3 01/26/2025 2:48 AM EDT [facility] Monocytes Absolute 0.57 0.10 - 0.90 10*3/mm3 01/26/2025 2:48 AM EDT [facility] Eosinophils Absolute 0.00 0.00 - 0.40 10*3/mm3 01/26/2025 2:48 AM EDT [facility] Basophils Absolute 0.00 0.00 - 0.20 10*3/mm3 01/26/2025 2:48 AM EDT [facility] RBC Morphology Normal Normal 01/26/2025 2:48 AM EDT [facility] WBC Morphology Normal Normal 01/26/2025 2:48 AM EDT [facility] Platelet Morphology Normal Normal 01/26/2025 2:48 AM EDT [facility] Blood Line / Unknown 01/26/2025 2: 09 AM EDT 01/26/2025 2:20 AM EDT Maru Martinez APRN LAB BLOOD ORDERABLES Final Result [facility]
[address] [place] [address], * TSH Rfx On Abnormal To Free T4 (01/26/2025 2:09 AM EDT) TSH 1.430 0.270 - 4.200 uIU/mL 01/26/2025 2:50 AM EDT [facility] Blood Line / Unknown 01/26/2025 2: 09 AM EDT 01/26/2025 2:20 AM EDT us Maru Martinez APRN LAB BLOOD ORDERABLES Final Result [facility]
[address] [place] [address], * (ABNORMAL) High Sensitivity Troponin T (01/26/2025 2:09 AM EDT) HS Troponin T 23(H) <14 ng/L 01/26/2025 2:50 AM EDT [facility] Blood Line / Unknown 01/26/2025 2: 09 AM EDT 01/26/2025 2:20 AM EDT Narrative [facility] - 01/26/2025 2:50 AM EDT [...] Martinez APRN LAB BLOOD ORDERABLES Final Result [facility]
[address] [place] [address], * Protime-INR (01/26/2025 2:09 AM EDT) Protime 13.9 12.2 - 15.3 Seconds 01/26/2025 2:56 AM EDT [facility] INR 1.01 0.89 - 1.12 01/26/2025 2:56 AM EDT [facility] Blood Line / Unknown 01/26/2025 2: 09 AM EDT 01/26/2025 2:20 AM EDT Maru Martinez APRN LAB BLOOD ORDERABLES Final Result Performing Organization Address City/[facility]/ZIP Co de Phone Number [facility]
[address] [place] [address], * Procalcitonin (01/26/2025 2:09 AM EDT) Procalcitonin 0.15 0.00 - 0.25 ng/mL 01/26/2025 2:50 AM EDT [facility] Blood Line / Unknown 01/26/2025 2: 09 AM EDT 01/26/2025 2:20 AM EDT Narrative [facility] - 01/26/2025 2:50 AM EDT [...] Day 4 values are available. Refer to http://www.wacdsn-xfx-hewdwazocx.com Change in PCT <=80% A decrease of [...] severe sepsis or septic shock. Maru Martinez APRN LAB BLOOD ORDERABLES Final Result [facility]
[address] [place] [address], * Phosphorus (01/26/2025 2:09 AM EDT) Phosphorus 3.6 2.5 - 4.5 mg/dL 01/26/2025 2:50 AM EDT [facility] Blood Line / Unknown 01/26/2025 2: 09 AM EDT 01/26/2025 2:20 AM EDT Maru Martinez SENIOR HEALTH EDUCATOR LAB BLOOD ORDERABLES Final Result [facility]
[address] [place] [address], * Magnesium (01/26/2025 2:09 AM EDT) Magnesium 2.1 1.6 - 2.4 mg/dL 01/26/2025 2:50 AM EDT [facility] Blood Line / Unknown 01/26/2025 2: 09 AM EDT 01/26/2025 2:20 AM EDT Marusadaf Martinez SENIOR HEALTH EDUCATOR LAB BLOOD ORDERABLES Final Result [facility]
[address] [place] [address], * (ABNORMAL) Lipid Panel (01/26/2025 2:09 AM EDT) Total Cholesterol 209(H) 0 - 200 mg/dL 01/26/2025 2:50 AM EDT [facility] Triglycerides 149 0 - 150 mg/dL 01/26/2025 2:50 AM EDT [facility] HDL Cholesterol 70(H) 40 - 60 mg/dL 01/26/2025 2:50 AM EDT [facility] LDL Cholesterol 113(H) 0 - 100 mg/dL 01/26/2025 2:50 AM EDT [facility] VLDL Cholesterol 26 5 - 40 mg/dL 01/26/2025 2:50 AM EDT [facility] LDL/HDL Ratio 1.56 01/26/2025 2:50 AM EDT [facility] Blood Line / Unknown 01/26/2025 2: 09 AM EDT 01/26/2025 2:20 AM EDT Narrative [facility] - 01/26/2025 2:50 AM EDT [...] using the NIH LDL-C calculation. Maru Martinez SENIOR HEALTH EDUCATOR LAB BLOOD ORDERABLES Final Result [facility]
[address] [place] [address], * Lipase (01/26/2025 2:09 AM EDT) Lipase 20 13 - 60 U/L 01/26/2025 2:50 AM EDT [facility] Blood Line / Unknown 01/26/2025 2: 09 AM EDT 01/26/2025 2:20 AM EDT Maru Colliermer SENIOR HEALTH EDUCATOR LAB BLOOD ORDERABLES Final Result Performing Organization Address [facility]/ZIP Co de Phone Number [facility]
[address] [place] [address], * (ABNORMAL) Lactic Acid, Plasma (01/26/2025 2:09 AM EDT) Pathologist [facility] Lactate 2.7(HH) 0.5 - 2.0 mmol/L 01/26/2025 2:45 AM EDT [facility] Comment:Falsely depressed re sults may occur on samples drawn from patients receiving N-Acetylcysteine (NAC) or Metamizole. Blood Line / Unknown 01/26/2025 2: 09 AM EDT 01/26/2025 2:20 AM EDT Maru Whipple Juan SENIOR HEALTH EDUCATOR LAB BLOOD ORDERABLES Final Result Performing Organization Address [facility] Co de Phone Number [facility]
[address] [place] [address], * (ABNORMAL) Comprehensive Metabolic Panel (01/26/2025 2:09 AM EDT) [facility] Glucose 154(H) 65 - 99 mg/dL 01/26/2025 2:50 AM EDT [facility] BUN 20.1 8.0 - 23.0 mg/dL 01/26/2025 2:50 AM EDT [facility] Creatinine 1.30(H) 0.57 - 1.00 mg/dL 01/26/2025 2:50 AM EDT [facility] Sodium 142 136 - 145 mmol/L 01/26/2025 2:50 AM EDT [facility] Potassium 3.9 3.5 - 5.2 mmol/L 01/26/2025 2:50 AM EDT [facility] Chloride 107 98 - 107 mmol/L 01/26/2025 2:50 AM EDT [facility] CO2 21.1(L) 22.0 - 29.0 mmol/L 01/26/2025 2:50 AM EDT [facility] Calcium 9.0 8.6 - 10.5 mg/dL 01/26/2025 2:50 AM EDT [facility] Total Protein 6.9 6.0 - 8.5 g/dL 01/26/2025 2:50 AM T [facility] Albumin 4.0 3.5 - 5.2 g/dL 01/26/2025 2:50 AM EDT [facility] ALT (SGPT) 19 1 - 33 U/L 01/26/2025 2:50 AM EDT [facility] AST (SGOT) 30 1 - 32 U/L 01/26/2025 2:50 AM T [facility] Alkaline Phosphatase 120(H) 39 - 117 U/L 01/26/2025 2:50 AM T [facility] Total Bilirubin 0.4 0.0 - 1.2 mg/dL 01/26/2025 2:50 AM T [facility] Globulin 2.9 gm/dL 01/26/2025 2:50 AM [facility] Comment:Calculated Result A/G Ratio 1.4 g/dL 01/26/2025 2:50 AM [facility] BUN/Creatinine Ratio 15.5 7.0 - 25.0 01/26/2025 2:50 AM [facility] Anion Gap 13.9 5.0 - 15.0 mmol/L 01/26/2025 2:50 AM [facility] eGFR 43.5(L) >60.0 mL/min/1.7 3 01/26/2025 2:50 AM [facility] Blood Line / Unknown 01/26/2025 2: 09 AM EDT 01/26/2025 2:20 AM T [facility] - 01/26/2025 2:50 AM EDT GFR [...] include race as a factor Maru Martinez SENIOR HEALTH EDUCATOR LAB BLOOD ORDERABLES Final Result Performing Organization Address City/[facility]/ZIP Co de Phone Number [facility]
[address] [place] [address], * (ABNORMAL) CK (01/26/2025 2:09 AM EDT) Creatine Kinase 206(H) 20 - 180 U/L 01/26/2025 2:50 AM EDT [facility] Blood Line / Unknown 01/26/2025 2: 09 AM EDT 01/26/2025 2:20 AM EDT Maru Martinez APRN LAB BLOOD ORDERABLES Final Result Performing Organization Address [facility] de Phone Number [facility]
[address] [place] [address], * aPTT (01/26/2025 2:09 AM EDT) PTT 26.2 22.0 - 39.0 seconds 01/26/2025 2:56 AM EDT [facility] Blood Line / Unknown 01/26/2025 2: 09 AM EDT 01/26/2025 2:20 AM EDT Narrative [facility] - 01/26/2025 2:56 AM EDT PTT = The equivalent PTT values for the therapeutic range of heparin levels at 0.3 to 0.5 U/ml are 60 to 70 seconds. Maru R Blamer SENIOR HEALTH EDUCATOR LAB BLOOD ORDERABLES Final Result Performing Organization Address [facility]/ZIP Co de Phone Number [facility]
[address] [place] [address], * Calcium, Ionized (01/26/2025 2:09 AM EDT) Ionized Calcium 1.15 1.15 - 1.30 mmol/L 01/26/2025 2:22 AM EDT [facility] Blood Line / Unknown 01/26/2025 2: 09 AM EDT 01/26/2025 2:20 AM EDT Maru Martinez APRN LAB BLOOD ORDERABLES Final Result Performing Organization Address [facility] Co de Phone Number [facility]
[address] [place] [address], * Blood Culture - Blood, Blood, Port (01/26/2025 2:00 AM EDT) Blood Culture No growth at 5 days 02/04/2025 12:48 PM EST [facility] Blood (Blood, Port) Port / Unknown 01/26/2025 2:00 AM EDT 01/26/2025 3:10 AM EDT Maru Martinez APRN MICROBIOLOGY - GENERAL ORD ERABLES Edited Result - Final Performing Organization Address [facility]/ZIP Co de Phone Number [facility]
[address] [place] [address], [place] [phone] * Blood Culture - Blood, Arm, Right (01/26/2025 2:00 AM EDT) Blood Culture No growth at 5 days 02/04/2025 12:48 PM EST [facility] Blood Structure of right upper limb / Unknown Venipuncture / Unknown 01/26/2025 2:00 AM EDT 01/26/2025 3:09 AM EDT us Maru R Juan SENIOR HEALTH EDUCATOR MICROBIOLOGY - GENERAL ORD ERABLES Edited Result - Final [facility]
[address] [phone], * CT Angiogram Head w AI Analysis [...] MD 01/26/2025 1:54 AM EDT Workstation ID: [id number] Narrative 01/26/2025 1:[address] ANGIOGRAM [...] MD 01/26/2025 1:54 AM EDT Workstation ID: [id number] Maru Martinez APRN IMG CT ORDERABLES Final [...] MD 01/26/2025 1:54 AM EDT Workstation ID: [id number] Narrative 01/26/2025 1:[address] ANGIOGRAM [...] MD 01/26/2025 1:54 AM EDT Workstation ID: [id number] us Maru Martinez SENIOR HEALTH EDUCATOR IMG CT ORDERABLES Final Re sult * CT Head Without Contrast (01/26/2025 1:31 AM EDT) Anatomical Region Laterality Modality Head N/A Computed Tomogra phy 01/26/2025 1:45 AM EDT Impressions 01/26/2025 1:46 AM EDT Impression: No acute intracranial abnormality. Electronically Signed: Jesus Peterson MD 01/26/2025 1:46 AM EDT Workstation ID: [id number] Narrative 01/26/2025 1:[address] HEAD [...] MD 01/26/2025 1:46 AM EDT Workstation ID: [id number] us Maru Martinez SENIOR HEALTH EDUCATOR IMG CT ORDERABLES Final Re sult * LABS SCANNED (01/26/2025) [facility] LAB BLOOD ORDERABLES Final Re sult * IMAGING SCANNED (01/26/2025) Anatomical Region Laterality Modality Radiographic Tammy ging Result [facility] IMG DIAGNOSTIC IMAGING ORDERA BLES Final Result * IMAGING SCANNED (01/26/2025) Anatomical Region Laterality Modality Radiographic Tammy ging Result [facility] IMG DIAGNOSTIC IMAGING ORDERA BLES Final Result * IMAGING SCANNED (01/26/2025) Anatomical Region Laterality Modality [facility] Final Result * IMAGING SCANNED (01/26/2025) Anatomical Region Laterality Modality Radiographic Tammy ging Result [facility] IMG DIAGNOSTIC IMAGING ORDERA BLES Final Result * IMAGING SCANNED (01/26/2025) Anatomical Region Laterality Modality Radiographic Tammy ging Result [facility] IMG DIAGNOSTIC IMAGING ORDERA BLES Final Result * IMAGING SCANNED (01/26/2025) Anatomical Region Laterality Modality Radiographic Tammy ging Result [facility] IMG DIAGNOSTIC IMAGING ORDERA BLES Final Result * IMAGING SCANNED (01/26/2025) Anatomical Region Laterality Modality Radiographic Tammy ging Result [facility] IMG DIAGNOSTIC IMAGING ORDERA BLES Final [...] tablet 25 mcg 25 mcg, Oral, Every Agricultural Economics Teacher, First dose (after last modification) on Sun01/27/25 [...] with warm soapy water or use hand cloth coverer. 3. Open the tube of mupirocin 2%. [...] Use if senna-docusate is ineffective, Starting on 01/26/25 at 0113, [...] RN)2017 (Given - Provider: Mar Soriano, RN) 09 (Given - Provider: Rossy Singh RN)2112 (Given - Provider: Mary Wu, SPENCER) 0832 (Given - Provider: Mary Valdez RN Paper Pattern Inspector) amitriptyline (ELAVIL) tablet 50 mg 50 mg, Oral, Nightly, First dose (after last modification) on Sun01/26/25 at 2100 2017 (Given - Provider: Mar Soriano, RN) 2113 (Given - Provider: Mary Wu, SPENCER) amLODIPine (NORVASC) tablet 10 mg 10 mg, Oral, Every 24 Hours Scheduled, First dose (after last modification) on Sun01/28/25 at 0900, Hold for SBP less than 100, DBP less than 60. Caution: Look alike/sound alike drug alert. Avoid grapefruit juice. 09 (Given - Provider: Rossy Singh RN) 0833 (Given - Provider: Mary Valdez RN Paper Pattern Inspector) amLODIPine (NORVASC) tablet 5 mg (CANCELED) 5 [...] 0837 (Given - Provider: Lainey Zaman RN) 09 (Given - Provider: Rossy Singh RN) 0832 (Given - Provider: Mary Valdez, RN Paper Pattern Inspector) cefTRIAXone (ROCEPHIN) 2,000 mg in sodium chloride [...] 2046 (Given - Provider: Mar Soriano RN) 0904 (Given - Provider: Rossy Singh RN)2113 (Given - Provider: Mary Wu RN) 0832 (Given - Provider: Mary Valdez RN Paper Pattern Inspector) DULoxetine (CYMBALTA) DR capsule 120 mg 120 [...] 0832 (Given - Provider: Mary Valdez RN Paper Pattern Inspector) enoxaparin sodium (LOVENOX) syringe 40 mg 40 mg, Subcutaneous, Daily, First dose on Sun01/27/25 at 1900, Give subcutaneous in abdomen only. Do not massage site after injection., Indications: VTE Prophylaxis 2017 (Given - Provider: Mar Soriano, RN) 09 (Given - Provider: Rossy Singh, RN) 0831 (Given - Provider: Mary Valdez, RN Paper Pattern Inspector) Gadopiclenol (VUEWAY) injection 7.5 mL (COMPLETED) 7.5 [...] RN) 09 (Given - Provider: Rossy Singh, RN)2113 (Given - Provider: Mary Wu, SPENCER) 0832 (Given - Provider: Mayr Valdez, SPENCER Paper Pattern Inspector) levothyroxine (SYNTHROID, LEVOTHROID) tablet 25 mcg 25 mcg, Oral, Every Agricultural Economics Teacher, First dose (after last modification) on Sun01/27/25 at 0600, Take on empty stomach. 0546 (Given - Provider: Minnie Castillo RN) 0500 (Given - Provider: Raeann Arredondo RN) 0533 (Given - Provider: Mary Wu RN) Lidocaine 4 % 1 patch 1 patch, [...] (Not Given - Provider: Mary Valdez RN Paper Pattern Inspector - Reason: Patient not available) losartan (COZAAR) [...] 0832 (Given - Provider: Mary Valdez RN Paper Pattern Inspector) mupirocin (BACTROBAN) 2 % nasal ointment 1 [...] with warm soapy water or use hand cloth coverer. 3. Open the tube of mupirocin 2%. [...] together and massage gently for 60 seconds. ([facility]) 0837 (Given - Provider: Lainey Zaman RN)2017 (Given - Provider: Mar Soriano RN) 903 (Given - Provider: Rossy Singh RN)2114 (Given - Provider: Mary Wu, SPENCER) 0832 (Given - Provider: Mary Valdez, RN Paper Pattern Inspector) potassium chloride (KLOR-CON M20) CR tablet 40 [...] infusion)2018 (Canceled Entry - Provider: Mar Soriano, SPENCER) 09 (Given - Provider: Rossy Singh RN)2115 (Given - Provider: Mary Wu, SPENCER) 0835 (Given - Provider: Mary Valdez RN Paper Pattern Inspector) sodium chloride 0.9 % flush 10 mL 10 mL, Intravenous, Every 12 Hours Scheduled, First dose on Sun01/26/25 at 0245 0854 (Not Given - Provider: Lainey Wease, RN - Reason: Given from running infusion)2018 (Canceled Entry - Provider: Mar Soriano RN) 09 (Given - Provider: Rossy Singh, RN)2115 (Given - Provider: Mary Wu, SPENCER) 0836 [...] Soriano RN) 0950 (Given - Provider: Rossy Snigh RN)2114 (Given - Provider: Mary Wu, SPENCER) 0836 (Given - Provider: Elena Torre, SPENCER) sodium chloride 0.9 % flush 10 mL 10 mL, Intravenous, Every 12 Hours Scheduled, First dose on Sun01/26/25 at 1230, Lumen #3 0845 (Given - Provider: Lainey Zaman RN)2018 (Given - Provider: Mar Soriano RN) 0950 (Given - Provider: Rossy Singh RN)2114 (Given - Provider: Mary Wu, RN) 0837 [...] Lainey Zaman RN)2152 (Given - Provider: Shabana Abdul, SPENCER) Magnesium Standard Dose Replacement - Follow Nurse / BPA Driven Protocol Open Order & Select [facility] Electrolyte Replacement Protocol Algorithm to [...] Lainey Zaman, SPENCER)2050 (Given - Provider: Mar Soriano RN) 0500 (Given - Provider: Raeann Arredondo RN)1302 (Given - Provider: Rossy Singh, SPENCER)2113 (Given - Provider: Mary Wu, SPENCER) 0533 (Given - Provider: Mary Wu RN)1334 (Given - Provider: Mary Valdez RN Paper Pattern Inspector) Phosphorus Replacement - Follow Nurse / BPA Driven Protocol Open Order & Select [facility] Electrolyte Replacement Protocol Algorithm to [...] BPA Driven Protocol Open Order & Select [facility] Electrolyte Replacement Protocol Algorithm to [...] 0835 (Given - Provider: Mary Valdez RN Paper Pattern Inspector) sodium chloride 0.9 % flush 10 mL [...] documented as of this encounter Care Teams Prototyper Relationship Specialty Start Date End Date Connor Gomez MD [address] [place] [address] PCP - General Family Medicine 01/26/25 documented as of this encounter
[2025-03-02 15:25] LABS: Hematocrit 35.3 % (37.0-47.0); Hemoglobin 11.3 g/dL (12.2-16.2); Immature Granulocytes % 0.2 %; Mean Corpuscular HGB Conc 32.0 g/dL (31.8-35.4); Mean Corpuscular Hemoglobin 28.8 pg (27.0-31.2); Mean Corpuscular Volume 90.1 fl (81-99); Nucleated Red Blood Cells % 0 %; Platelet Count 459 K/mm3 (142-424); Red Blood Count 3.92 M/mm3 (4.20-5.40); Red Cell Distribution Width-SD 44.0 fL; White Blood Count 9.0 K/mm3 (4.8-10.8)
[2025-03-02 15:44] LABS: Chloride 100 mmol/L (98-107); Potassium 4.1 mmoL/L (3.5-5.1); Sodium 137 mmol/L (136-145)
[2025-03-02 15:47] LABS: Alanine Aminotransferase 18 U/L (12-78); Alkaline Phosphatase 136 U/L (38-126); Aspartate Amino Transferase 28 U/L (14-36); Bilirubin,Total 0.5 mg/dl (0.2-1.3); Blood Urea Nitrogen 18 mg/dl (7-17); Calcium 9.3 mg/dl (8.4-10.2); Carbon Dioxide 21 mmol/L (22.0-30.0); Creatinine,Serum 1.60 mg/dl (0.52-1.04); Estimated Glomerular Filt Rate 32 ml/min (>60); GFR (African American) 38 ML/MIN (>60); Glucose 110 mg/dl (74-100); Total Protein,Serum 7.3 g/dl (6.3-8.2)
[2025-03-02 15:58] LABS: Anion Gap 20.1 mEq/L (5-15)
[2025-03-02 16:10] LABS: Albumin Level 4.3 g/dl (3.5-5.0); Albumin/Globulin Ratio 1.4 (1.1-1.8); Globulin 3.0 g/dL (1.3-3.2)
--- OUTSIDE RECORDS SUMMARY | 2025-03-03 14:24 | XMS_ITS | Encounter Summary ---
Author Organization [facility] Address [address] 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 0 11/15/2023 CAGE Questionnaire Score 0 024 Utilities Answer Date Recorded In the past 12 months has th e e-Tag, gas, oil, or water company threatened to [...] Description 07/20/2025 10:40 AM EDT Office Visit [facility] Nephrology, Bone & Mineral Metabolism [address], [address] [place] [address] Gutierrez Domínguez MD [address] [place] [address] Scheduled Orders Name Type Priority Associated Diagnoses Orde r Schedule Renal Function Panel, Plasma Lab Routine TIP (acute kidney injury) ([facility]) Expected: 01/07/2025 (Approximate), Expires: 07/08/2026 CBC and Differential Lab Routine TIP (acute kidney injury) ([facility]) Expected: 01/07/2025 (Approximate), Expires: 07/08/2026 Creatinine, Random, Urine Lab Routine TIP (acute kidney injury) ([facility]) Expected: 01/07/2025 (Approximate), Expires: 07/08/2026 Protein, Random, Urine with Creatinine Lab Routine TIP (acute kidney injury) ([facility]) Expected: 01/07/2025 (Approximate), Expires: 07/08/2026 Urinalysis with reflex microscopic (Culture NOT Included) Lab Routine TIP (acute kidney injury) ([facility]) Expected: 01/07/2025 (Approximate), Expires: 07/08/2026 PTH Intact Total Lab Routine TIP (acute kidney injury) ([facility]) Vitamin D insufficiency Expected: 01/07/2025 (Approximate), Expires: 07/08/2026 Vitamin D 25 Hydroxy Lab Routine TIP (acute kidney injury) ([facility]) Vitamin D insufficiency Expected: 01/07/2025 (Approximate), [...] documented as of this encounter Care Teams Salvage Winder And Inspector Relationship Specialty Start Date End Date Timothy Granda DO [address] [place] [address] PCP - General 05/25/23 documented as of this encounter
--- OUTSIDE RECORDS SUMMARY | 2025-03-03 14:25 | XMS_ITS | Encounter Summary ---
Author Organization [facility] Address [address] [place] [address] Care Team Providers Care Electronics Utility Worker Name Role Phone Connor Gomez MD Primary Care Provider [phone] Encounter Details Date Type Department Care Team [...] and heating? Patient unable to answer 01/26/2025 [facility] - Occupational Stress [...] things needed for daily living? No 01/26/2025 [facility] Utilities Answer Date Recorded In the past 12 months has th e [employer], gas, oil, or water company threatened to [...] Patient unable to answer 01/26/2025 Preferred Language Citizen Of [place] 01/26/2025 Comments No Sex and Gender Information [...] documented as of this encounter Care Teams Electronics Utility Worker Relationship Specialty Start Date End Date Connor Gomez MD [address] [place] [address] PCP - General Family Medicine 01/26/25 documented as of this encounter
--- OUTSIDE RECORDS SUMMARY | 2025-03-03 14:25 | XMS_ITS | Clinical Summary ---
Author Organization [facility] Address [address] [place] [address] Care Team Providers Care Laboratory Specialist Name Role Phone Connor Gomez MD Primary Care Provider [phone] Allergies Active Allergy Reactions Criticality Noted Date [...] Daily. Active vitamin D (ERGOCALCIFEROL) 1.25 MG (05281 UT) capsule capsule Take 1 capsule by [...] mouth Every 12 (Twelve) Hours. 60 tablet Active losartan (COZAAR) 50 MG tablet Take 2 tablets by mouth Daily. 60 tablet Active levETIRAcetam (KEPPRA) 500 MG tablet Take 1 tablet by mouth Every 12 (Twelve) Hours. 60 tablet Active Active Problems Problem Noted Date Diagnosed [...] Patient may need Pain Management referral. Discontinue [place] and use oxycodone 10mg q6h prn. 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 Patient unable to answer 01/26/2025 [facility] - Occupational [...] things needed for daily living? No 01/26/2025 [facility] Utilities Answer Date Recorded In the past 12 months has e electric, gas, oil, or water company [...] Patient unable to answer 01/26/2025 Preferred Language Libyan 01/26/2025 Comments No Sex and Gender Information [...] SIGMOIDOSCOPY 02/22/2028 02/21/2023, 02/21/2023 COLONOSCOPY 08/08/2032 08/08/2022, 05/0 12/2022, 08/07/2022, Additional history exists COLORECTAL CANCER [...] this topic Medical Devices Implanted Type Area Canvassing Manager Device Identifier Shelf Expiration Date Model / Serial / Lot Cmt Bone Simplex/P Full Dose /Pk - [id number] Implanted:Qty : 1 on 07/18/2018 by Bautista Luis MD at [facility] Implant Right: Shoulder TRACY RUBEN 09/29/2020 [id number] / / [id number] Stem Hum Univers [place] 6x60mm - [id number] Implanted:Qty : 1 on 07/18/2018 by Bautista Luis MD at [facility] Implant Right: Shoulder ARTHREX 08/30/2022 [id number] / / [id number] Alberto Lugo Sm - [id number] Implanted:Qty : 1 on 07/18/2018 by Bautista Luis MD at [facility] Implant Right: Shoulder ARTHREX 12/30/2022 [id number] / / [id number] Hd Hum Univers2 Cocr 65w25ef - [id number] Implanted:Qty : 1 on 07/18/2018 by Bautista Luis MD at [facility] Implant Right: Shoulder ARTHREX 03/01/2022 [id number] / / [id number] Sut Tw 2/0 38in Wht/Blk - [id number] Implanted:Qty : 3 on 07/18/2018 by Bautista Luis MD at [facility] Implant Right: Shoulder ARTHREX [id number] / / Totl Arth Shldr S3 - [id number] Implanted:Qty : 1 on 07/18/2018 by Bautista Luis MD at [facility] Implant Right: Shoulder ARTHREX CAPTOTLSHLD [id number] / / Procedures Procedure Name Priority Date/Time [...] of2 resultswithin the time period is included. [facility] Onbase ECG ORDERABLES Final Result * Potassium (01/28/2025 9:51 PM EDT) Only the most recent of2 resultswithin the time period is included. Pathologist [facility] Potassium 3.8 3.5 - 5.2 mmol/L 01/28/2025 10:10 PM EDT [facility] Blood Venipuncture / Unknown 01/28/2025 9:51 PM EDT 01/28/2025 9:57 PM EDT Jessica Alejandro Valdovinos DO LAB BLOOD ORDERABLES F inal Result [facility]
[address] [place] [address], * (ABNORMAL) CBC (No Diff) (01/28/2025 10:34 AM EDT) Only the most recent of2 resultswithin the time period is included. WBC 12.20(H) 3.40 - 10.80 10*3/mm3 01/28/2025 11:45 AM EDT [facility] RBC 3.86 3.77 - 5.28 10*6/mm3 01/28/2025 11:45 AM EDT [facility] Hemoglobin 11.6(L) 12.0 - 15.9 g/dL 01/28/2025 11:45 AM EDT [facility] Hematocrit 35.5 34.0 - 46.6 % 01/28/2025 11:45 AM EDT [facility] MCV 92.0 79.0 - 97.0 fL 01/28/2025 11:45 AM EDT [facility] MCH 30.1 26.6 - 33.0 pg 01/28/2025 11:45 AM EDT [facility] MCHC 32.7 31.5 - 35.7 g/dL 01/28/2025 11:45 AM EDT [facility] RDW 13.5 12.3 - 15.4 % 01/28/2025 11:45 AM EDT [facility] RDW-SD 46.2 37.0 - 54.0 fl 01/28/2025 11:45 AM EDT [facility] MPV 9.6 6.0 - 12.0 fL 01/28/2025 11:45 AM EDT [facility] Platelets 301 140 - 450 10*3/mm3 01/28/2025 11:45 AM EDT [facility] Blood Venipuncture / Unknown 01/28/2025 10:34 AM EDT 01/28/2025 11:41 AM EDT Andrew Barkley MD LAB BLOOD ORDERABLES Final R esult [facility]
[address] [place] [address], * (ABNORMAL) Basic Metabolic Panel (01/28/2025 10:34 AM EDT) Only the most recent of2 resultswithin the time period is included. Glucose 117(H) 65 - 99 mg/dL 01/28/2025 12:14 PM EDT [facility] BUN 6.4(L) 8.0 - 23.0 mg/dL 01/28/2025 12:14 PM EDT [facility] Creatinine 0.85 0.57 - 1.00 mg/dL 01/28/2025 12:14 PM EDT [facility] Sodium 139 136 - 145 mmol/L 01/28/2025 12:14 PM EDT [facility] Potassium 3.3(L) 3.5 - 5.2 mmol/L 01/28/2025 12:14 PM EDT [facility] Chloride 103 98 - 107 mmol/L 01/28/2025 12:14 PM EDT [facility] CO2 20.6(L) 22.0 - 29.0 mmol/L 01/28/2025 12:14 PM EDT [facility] Calcium 8.8 8.6 - 10.5 mg/dL 01/28/2025 12:14 PM EDT [facility] BUN/Creatinine Ratio 7.5 7.0 - 25.0 01/28/2025 12:14 PM EDT [facility] Anion Gap 15.4(H) 5.0 - 15.0 mmol/L 01/28/2025 12:14 PM EDT [facility] eGFR 72.4 >60.0 mL/min/1.7 3 01/28/2025 12:14 PM EDT [facility] Blood Venipuncture / Unknown 01/28/2025 10:34 AM EDT 01/28/2025 11:41 AM EDT [facility] - 01/28/2025 12:14 PM EDT GFR [...] MD LAB BLOOD ORDERABLES Final R esult [facility]
[address] [id number], * MRI Brain With Contrast (01/27/2025 1:28 AM EDT) Anatomical Region Laterality Modality Head, Neck N/A Magnetic Resonan ce 01/27/2025 2:00 AM EDT Impressions 01/27/2025 2:05 AM EDT Impression: No pathologic contrast enhancement. 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 Electronically Signed: Jesus Peterson MD 01/27/2025 2:05 AM EDT Workstation ID: [id number] Narrative 01/27/2025 2:05 AM EDT MRI BRAIN [...] MD 01/27/2025 2:05 AM EDT Workstation ID: [id number] Adama Maher MD IMG MRI ORDERABLES Final Result * POC Glucose Once (01/26/2025 5:38 PM EDT) Only the most recent of4 resultswithin the time period is included. Glucose 91 70 - 130 mg/dL 01/26/2025 5:40 PM EDT [facility] Comment:Serial Number: [id number]: [id number] Amber Comment 1 Follow unit protocol 01/26/2025 5:40 PM EDT [facility] Blood 01/26/2025 5:38 PM EDT 01/26/2025 5:40 PM EDT us Andrew Barkley MD POINT OF CARE TEST ORDERABLE S Final Result [facility]
[address] [place] [address], * ECHO COMPLETE W/ DOPPLER AND COLOR FLOW (01/26/2025 11:26 AM EDT) Pathologist [facility] LVIDd 4.2 cm LVIDs 2.7 cm IVSd [...] - 2.0 mmol/L 01/26/2025 11:33 AM EDT [facility] Comment:Falsely depressed re sults may occur on samples drawn from patients receiving N-Acetylcysteine (NAC) or Metamizole. Blood Venipuncture / Unknown 01/26/2025 10:44 AM EDT 01/26/2025 11:00 AM EDT Maru Martinez APRN LAB BLOOD ORDERABLES Final Result [facility]
[address] [place] [address], * (ABNORMAL) Hemoglobin A1c (01/26/2025 6:51 AM EDT) Hemoglobin A1C 5.67(H) 4.80 - 5.60 % 01/26/2025 8:56 AM EDT [facility] Blood Structure of right upper limb / Unknown Venipuncture / Unknown 01/26/2025 6:51 AM EDT 01/26/2025 7:01 AM EDT Narrative [facility] - 01/26/2025 8:56 AM EDT Hemoglobin A1C Ranges: Increased Risk for Diabetes 5.7% to 6.4% Diabetes >= 6.5% Diabetic Goal < 7.0% Rayshawn Hercules PA-C LAB BLOOD ORDERABLE S Final Result Performing Organization Address City/[facility]/ZIP Co de Phone Number [facility]
[address] [place] [address], * (ABNORMAL) Vancomycin, Random (01/26/2025 6:51 AM EDT) Vancomycin Random 42.10(HH) 5.00 - 40.00 mcg/mL 01/26/2025 7:53 AM EDT [facility] Blood Structure of right upper limb / Unknown Venipuncture / Unknown 01/26/2025 6:51 AM EDT 01/26/2025 7:01 AM EDT Narrative [facility] - 01/26/2025 7:53 AM EDT Therapeutic Ranges for Vancomycin Vancomycin Random 5.0-40.0 mcg/mL Vancomycin Trough 5.0-20.0 mcg/mL Vancomycin Peak 20.0-40.0 mcg/mL Aline CernaD LAB BLOOD ORDERABLES Final R esult [facility]
[address] [place] [address], * EEG AWAKE OR ASLEEP PORTABLE (01/26/2025 6:30 AM EDT) Impressions NEUROLOGY - 01/26/2025 8:58 AM EDT Diffuse cerebral dysfunction of at least mild degree, nonspecific but most commonly seen due to toxic/metabolic cause No ongoing seizures are present This report is transcribed using the Sc[employer]atchJr dictation system. Narrative NEUROLOGY - 01/26/2025 8:58 [...] Troponin T 1Hr (01/26/2025 3:28 AM EDT) [facility] HS Troponin T 22(H) <14 ng/L 01/26/2025 3:57 AM EDT [facility] Troponin T Numeric Delta -1 ng/L 01/26/2025 3:57 AM EDT [facility] Troponin T % Delta -4 Abnormal if >/= 20% 01/26/2025 3:57 AM EDT [facility] Blood Line / Unknown 01/26/2025 3: 28 AM EDT 01/26/2025 3:37 AM EDT Narrative [facility] - 01/26/2025 3:57 AM EDT [...] to an underlying chronic condition. Maru Martinez LANDSCAPE FOREM[employer] LAB BLOOD ORDERABLES Final Result [facility]
[address] [place] [address], * ECG 12 Lead QT Measurement (01/26/2025 3:10 AM EDT) [facility] QT Interval 340 ms BH ECG QTC Interval 478 ms ECG 01/26/2025 [...] Referred By: Confirmed By: DARSHAN KHAN MD Maru Martinez [employer] ECG ORDERABLES Final Resu lt ECG * (ABNORMAL) Urinalysis, Microscopic Only - Indwelling Urethral Catheter (01/26/2025 2:57 AM EDT) Pathologist [facility] RBC, UA 6-10(A) None Seen, 0-2 /HPF 01/26/2025 3:25 AM EDT [facility] WBC, UA 11-20(A) None Seen, 0-2 /HPF 01/26/2025 3:25 AM EDT [facility] Bacteria, UA None Seen None Seen /HPF 01/26/2025 3:25 AM EDT [facility] Squamous Epithelial Cells, UA 0-2 None Seen, 0-2 /HPF 01/26/2025 3:25 AM EDT [facility] Hyaline Casts, UA None Seen None Seen /LPF 01/26/2025 3:25 AM EDT [facility] Methodology Automated Microscopy 01/26/2025 3:25 AM EDT [facility] Urine (Indwelling Urethral Catheter) Collection / Unknown 01/26/2025 2:57 AM EDT 01/26/2025 3:13 AM EDT us Maru Martinez [employer] URINE ORDERABLES Final Res ult [facility]
[address] [place] [address], * (ABNORMAL) Urinalysis With Microscopic If Indicated (No Culture) - Indwelling Urethral Catheter (01/26/2025 2:57 AM EDT) Color, UA Yellow Yellow, Straw 01/26/2025 3:25 AM EDT [facility] Appearance, UA Clear Clear 01/26/2025 3:25 AM EDT [facility] pH, UA 5.5 5.0 - 8.0 01/26/2025 3:25 AM EDT [facility] Specific [place], UA >1.030(H) 1.005 - 1.030 01/26/2025 3:25 AM EDT [facility] Glucose, UA Negative Negative 01/26/2025 3:25 AM EDT [facility] Ketones, UA Negative Negative 01/26/2025 3:25 AM EDT [facility] Bilirubin, UA Negative Negative 01/26/2025 3:25 AM EDT [facility] Blood, UA Moderate (2+)(A) Negative 01/26/2025 3:25 AM EDT [facility] Protein, UA Trace(A) Negative 01/26/2025 3:25 AM EDT [facility] Leuk Esterase, UA Small (1+)(A) Negative 01/26/2025 3:25 AM EDT [facility] Nitrite, UA Negative Negative 01/26/2025 3:25 AM EDT [facility] Urobilinogen, UA 0.2 E.U./dL 0.2 - 1.0 E.U./dL 01/26/2025 3:25 AM EDT [facility] Urine (Indwelling Urethral Catheter) Collection / Unknown 01/26/2025 2:57 AM EDT 01/26/2025 3:13 AM EDT us Maru Martinez [employer] URINE ORDERABLES Final Res ult [facility]
[address] [place] [address], * (ABNORMAL) Urine Drug Screen - Indwelling Urethral Catheter (01/26/2025 2:57 AM EDT) THC, Screen, Urine Negative Negative 2024 3:27 AM EDT [facility] Phencyclidine (PCP), Urine Negative Negative 01/26/2025 3:27 AM EDT [facility] Cocaine Screen, Urine Negative Negative 01/26/2025 3:27 AM EDT [facility] Methamphetamine, Ur Negative Negative 01/26/2025 3:27 AM EDT [facility] Opiate Screen Negative Negative 01/26/2025 3:27 AM EDT [facility] Amphetamine Screen, Urine Negative Negative 01/26/2025 3:27 AM EDT [facility] Benzodiazepine Screen, Urine Negative Negative 01/26/2025 3:27 AM EDT [facility] Tricyclic Antidepressants Screen Positive(A) Negative 01/26/2025 3:27 AM EDT [facility] Methadone Screen, Urine Negative Negative 01/26/2025 3:27 AM EDT [facility] Barbiturates Screen, Urine Negative Negative 01/26/2025 3:27 AM EDT [facility] Oxycodone Screen, Urine Positive(A) Negative 01/26/2025 3:27 AM EDT [facility] Buprenorphine, Screen, Urine Negative Negative 01/26/2025 3:27 AM EDT [facility] Urine (Indwelling Urethral Catheter) Collection / Unknown 01/26/2025 2:57 AM EDT 01/26/2025 3:13 AM EDT [facility] - 01/26/2025 3:27 AM EDT [...] unconfirmed results are used. us Maru Martinez [employer] URINE ORDERABLES Final Res ult [facility]
[address] [place] [address], * Fentanyl, Urine - Indwelling Urethral Catheter (01/26/2025 2:57 AM EDT) Fentanyl, Urine Negative Negative 01/26/2025 3:40 AM EDT [facility] Urine (Indwelling Urethral Catheter) Collection / Unknown 01/26/2025 2:57 AM EDT 01/26/2025 3:13 AM EDT [facility] - 01/26/2025 3:40 AM EDT [...] when unconfirmed results are used. Maru Martinez APRN URINE ORDERABLES Final Res ult Performing Organization Address City/[facility] Co de Phone Number [facility]
[address] [place] [address], * LSAC Slide Creation (01/26/2025 2:09 AM EDT) Blood Line / Unknown 01/26/2025 2: 09 AM EDT 01/26/2025 2:20 AM EDT Maru Martinez APRN LAB BLOOD ORDER ONLY Final Result Performing Organization Address [facility] Co de Phone Number [facility]
[address] [place] [address], [place] [phone] * TSH Rfx On Abnormal To Free T4 (01/26/2025 2:09 AM EDT) TSH 1.430 0.270 - 4.200 uIU/mL 01/26/2025 2:50 AM EDT [facility] Blood Line / Unknown 01/26/2025 2: 09 AM EDT 01/26/2025 2:20 AM EDT Maru Martinez APRN LAB BLOOD ORDERABLES Final Result Performing Organization Address [facility] de Phone Number [facility]
[address] [place] [address], [place] [phone] * Procalcitonin (01/26/2025 2:09 AM EDT) Procalcitonin 0.15 0.00 - 0.25 ng/mL 01/26/2025 2:50 AM EDT [facility] Blood Line / Unknown 01/26/2025 2: 09 AM EDT 01/26/2025 2:20 AM EDT Narrative [facility] - 01/26/2025 2:50 AM EDT [...] Day 4 values are available. Refer to http://www.rksvoi-rlo-[email or web address] Change in PCT <=80% A decrease of [...] sepsis or septic shock. us Maru Martinez [employer] LAB BLOOD ORDERABLES Final Result [facility]
[address] [place] [address], * (ABNORMAL) CBC Auto Differential (01/26/2025 2:09 AM EDT) [facility] WBC 18.88(H) 3.40 - 10.80 10*3/mm3 01/26/2025 2:48 AM EDT [facility] RBC 3.98 3.77 - 5.28 10*6/mm3 01/26/2025 2:48 AM EDT [facility] Hemoglobin 11.6(L) 12.0 - 15.9 g/dL 01/26/2025 2:48 AM EDT [facility] Hematocrit 35.6 34.0 - 46.6 % 01/26/2025 2:48 AM EDT [facility] MCV 89.4 79.0 - 97.0 fL 01/26/2025 2:48 AM EDT [facility] MCH 29.1 26.6 - 33.0 pg 01/26/2025 2:48 AM EDT [facility] MCHC 32.6 31.5 - 35.7 g/dL 01/26/2025 2:48 AM EDT [facility] RDW 13.6 12.3 - 15.4 % 01/26/2025 2:48 AM EDT [facility] RDW-SD 45.1 37.0 - 54.0 fl 01/26/2025 2:48 AM EDT [facility] MPV 9.4 6.0 - 12.0 fL 01/26/2025 2:48 AM EDT [facility] Platelets 411 140 - 450 10*3/mm3 01/26/2025 2:48 AM EDT [facility] Blood Line / Unknown 01/26/2025 2: 09 AM EDT 01/26/2025 2:20 AM EDT us Maru Martinez [employer] LAB BLOOD ORDERABLES Final Result [facility]
[address] [place] [address], * (ABNORMAL) High Sensitivity Troponin T (01/26/2025 2:09 AM EDT) HS Troponin T 23(H) <14 ng/L 01/26/2025 2:50 AM EDT [facility] Blood Line / Unknown 01/26/2025 2: 09 AM EDT 01/26/2025 2:20 AM EDT Narrative [facility] - 01/26/2025 2:50 AM EDT [...] to an underlying chronic condition. Maru Martinez [facility] LAB BLOOD ORDERABLES Final Result [facility]
[address] [place] [address], * (ABNORMAL) Manual Differential (01/26/2025 2:09 AM EDT) Neutrophil % 81.0(H) 42.7 - 76.0 % 01/26/2025 2:48 AM EDT [facility] Lymphocyte % 9.0(L) 19.6 - 45.3 % 01/26/2025 2:48 AM EDT [facility] Monocyte % 3.0(L) 5.0 - 12.0 % 01/26/2025 2:48 AM EDT [facility] Eosinophil % 0.0(L) 0.3 - 6.2 % 01/26/2025 2:48 AM EDT [facility] Basophil % 0.0 0.0 - 1.5 % 01/26/2025 2:48 AM EDT [facility] Bands % 5.0 0.0 - 5.0 % 01/26/2025 2:48 AM EDT [facility] Atypical Lymphocyte % 2.0 0.0 - 5.0 % 01/26/2025 2:48 AM EDT [facility] Neutrophils Absolute 16.24(H) 1.70 - 7.00 10*3/mm3 01/26/2025 2:48 AM EDT [facility] Lymphocytes Absolute 2.08 0.70 - 3.10 10*3/mm3 01/26/2025 2:48 AM EDT [facility] Monocytes Absolute 0.57 0.10 - 0.90 10*3/mm3 01/26/2025 2:48 AM EDT [facility] Eosinophils Absolute 0.00 0.00 - 0.40 10*3/mm3 01/26/2025 2:48 AM EDT [facility] Basophils Absolute 0.00 0.00 - 0.20 10*3/mm3 01/26/2025 2:48 AM EDT [facility] RBC Morphology Normal Normal 01/26/2025 2:48 AM EDT [facility] WBC Morphology Normal Normal 01/26/2025 2:48 AM EDT [facility] Platelet Morphology Normal Normal 01/26/2025 2:48 AM EDT [facility] Blood Line / Unknown 01/26/2025 2: 09 AM EDT 01/26/2025 2:20 AM EDT Maru Martinez APRN LAB BLOOD ORDERABLES Final Result [facility]
[address] [place] [address], * aPTT (01/26/2025 2:09 AM EDT) PTT 26.2 22.0 - 39.0 seconds 01/26/2025 2:56 AM EDT [facility] Blood Line / Unknown 01/26/2025 2: 09 AM EDT 01/26/2025 2:20 AM EDT Narrative [facility] - 01/26/2025 2:56 AM EDT PTT = The equivalent PTT values for the therapeutic range of heparin levels at 0.3 to 0.5 U/ml are 60 to 70 seconds. Maru Martinez [employer] LAB BLOOD ORDERABLES Final Result Performing Organization Address City/[facility]/ZIP Co de Phone Number [facility]
[address] [place] [address], * Protime-INR (01/26/2025 2:09 AM EDT) Protime 13.9 12.2 - 15.3 Seconds 01/26/2025 2:56 AM EDT [facility] INR 1.01 0.89 - 1.12 01/26/2025 2:56 AM EDT [facility] Blood Line / Unknown 01/26/2025 2: 09 AM EDT 01/26/2025 2:20 AM EDT Maru Martinez [employer] LAB BLOOD ORDERABLES Final Result Performing Organization Address [facility] Co de Phone Number [facility]
[address] [place] [address], * Phosphorus (01/26/2025 2:09 AM EDT) Phosphorus 3.6 2.5 - 4.5 mg/dL 01/26/2025 2:50 AM EDT [facility] Blood Line / Unknown 01/26/2025 2: 09 AM EDT 01/26/2025 2:20 AM EDT Maru Martinez [employer] LAB BLOOD ORDERABLES Final Result [facility]
[address] [place] [address], * Magnesium (01/26/2025 2:09 AM EDT) Magnesium 2.1 1.6 - 2.4 mg/dL 01/26/2025 2:50 AM EDT [facility] Blood Line / Unknown 01/26/2025 2: 09 AM EDT 01/26/2025 2:20 AM EDT Maru Martinez [employer] LAB BLOOD ORDERABLES Final Result Performing Organization Address City/[facility]/ZIP Co de Phone Number [facility]
[address] [place] [address], * Lipase (01/26/2025 2:09 AM EDT) Lipase 20 13 - 60 U/L 01/26/2025 2:50 AM EDT [facility] Blood Line / Unknown 01/26/2025 2: 09 AM EDT 01/26/2025 2:20 AM EDT Maru Martinez [employer] LAB BLOOD ORDERABLES Final Result Performing Organization Address [facility] Co de Phone Number [facility]
[address] [place] [address], * (ABNORMAL) Lactic Acid, Plasma (01/26/2025 2:09 AM EDT) Lactate 2.7(HH) 0.5 - 2.0 mmol/L 01/26/2025 2:45 AM EDT [facility] Comment:Falsely depressed re sults may occur on samples drawn from patients receiving N-Acetylcysteine (NAC) or Metamizole. Blood Line / Unknown 01/26/2025 2: 09 AM EDT 01/26/2025 2:20 AM EDT Maru Martinez [employer] LAB BLOOD ORDERABLES Final Result Performing Organization Address City/[facility]/ZIP Co de Phone Number [facility]
[address] [place] [address], [place] [phone] * (ABNORMAL) CK (01/26/2025 2:09 AM EDT) Creatine Kinase 206(H) 20 - 180 U/L 01/26/2025 2:50 AM EDT [facility] Blood Line / Unknown 01/26/2025 2: 09 AM EDT 01/26/2025 2:20 AM EDT Maru Martinez APRN LAB BLOOD ORDERABLES Final Result [facility]
[address] [place] [address], * Calcium, Ionized (01/26/2025 2:09 AM EDT) Ionized Calcium 1.15 1.15 - 1.30 mmol/L 01/26/2025 2:22 AM EDT [facility] Blood Line / Unknown 01/26/2025 2: 09 AM EDT 01/26/2025 2:20 AM EDT Maru Martinez APRN LAB BLOOD ORDERABLES Final Result [facility]
[address] [place] [address], * (ABNORMAL) Lipid Panel (01/26/2025 2:09 AM EDT) Total Cholesterol 209(H) 0 - 200 mg/dL 01/26/2025 2:50 AM EDT [facility] Triglycerides 149 0 - 150 mg/dL 01/26/2025 2:50 AM EDT [facility] HDL Cholesterol 70(H) 40 - 60 mg/dL 01/26/2025 2:50 AM EDT [facility] LDL Cholesterol 113(H) 0 - 100 mg/dL 01/26/2025 2:50 AM EDT [facility] VLDL Cholesterol 26 5 - 40 mg/dL 01/26/2025 2:50 AM EDT [facility] LDL/HDL Ratio 1.56 01/26/2025 2:50 AM EDT [facility] Blood Line / Unknown 01/26/2025 2: 09 AM EDT 01/26/2025 2:20 AM EDT Narrative [facility] - 01/26/2025 2:50 AM EDT [...] Martinez APRN LAB BLOOD ORDERABLES Final Result [facility]
[address] [place] [address], * (ABNORMAL) Comprehensive Metabolic Panel (01/26/2025 2:09 AM EDT) Glucose 154(H) 65 - 99 mg/dL 01/26/2025 2:50 AM EDT [facility] BUN 20.1 8.0 - 23.0 mg/dL 01/26/2025 2:50 AM EDT [facility] Creatinine 1.30(H) 0.57 - 1.00 mg/dL 01/26/2025 2:50 AM [facility] Sodium 142 136 - 145 mmol/L 01/26/2025 2:50 AM [facility] Potassium 3.9 3.5 - 5.2 mmol/L 01/26/2025 2:50 AM [facility] Chloride 107 98 - 107 mmol/L 01/26/2025 2:50 AM [facility] CO2 21.1(L) 22.0 - 29.0 mmol/L 01/26/2025 2:50 AM [facility] Calcium 9.0 8.6 - 10.5 mg/dL 01/26/2025 2:50 AM [facility] Total Protein 6.9 6.0 - 8.5 g/dL 01/26/2025 2:50 AM [facility] Albumin 4.0 3.5 - 5.2 g/dL 01/26/2025 2:50 AM [facility] ALT (SGPT) 19 1 - 33 U/L 01/26/2025 2:50 AM [facility] AST (SGOT) 30 1 - 32 U/L 01/26/2025 2:50 AM [facility] Alkaline Phosphatase 120(H) 39 - 117 U/L 01/26/2025 2:50 AM [facility] Total Bilirubin 0.4 0.0 - 1.2 mg/dL 01/26/2025 2:50 AM [facility] Globulin 2.9 gm/dL 01/26/2025 2:50 AM [facility] Comment:Calculated Result A/G Ratio 1.4 g/dL 01/26/2025 2:50 AM [facility] BUN/Creatinine Ratio 15.5 7.0 - 25.0 01/26/2025 2:50 AM [facility] Anion Gap 13.9 5.0 - 15.0 mmol/L 01/26/2025 2:50 AM [facility] eGFR 43.5(L) >60.0 mL/min/1.7 3 01/26/2025 2:50 AM EDT [facility] Blood Line / Unknown 01/26/2025 2: 09 AM EDT 01/26/2025 2:20 AM EDT Narrative [facility] - 01/26/2025 2:50 AM EDT GFR [...] Martinez APRN LAB BLOOD ORDERABLES Final Result [facility]
[address] [place] [address], * Blood Culture - Blood, Blood, Port (01/26/2025 2:00 AM EDT) Only the most recent of2 resultswithin the time period is included. Blood Culture No growth at 5 days 02/04/2025 12:48 PM EST [facility] Blood (Blood, Port) Port / Unknown 01/26/2025 2:00 AM EDT 01/26/2025 3:10 AM EDT Maru Martinez APRN MICROBIOLOGY - GENERAL ORD ERABLES Edited Result - Final [facility]
[address] [place] [address], * CT Angiogram Head w AI Analysis [...] MD 01/26/2025 1:54 AM EDT Workstation ID: [id number] [facility] 01/26/2025 1:[address] ANGIOGRAM NECK, [...] MD 01/26/2025 1:54 AM EDT Workstation ID: [id number] Maru Sarabjit Martinez LANDSCAPE FOREMAN IMG CT ORDERABLES Final Re sult * CT Angiogram Neck (01/26/2025 1:31 AM EDT) Anatomical Region Laterality Modality Neck, Vascular N/A Computed Tomogra phy 01/26/2025 1:48 AM EDT Impressions 01/26/2025 1:54 AM EDT Impression: Significantly limited exam due to motion artifact. The neck vasculature is not adequately evaluated. The intracranial vasculature is normal. There is no evidence of large vessel occlusion. Electronically Signed: Jeuss Peterson MD 01/26/2025 1:54 AM EDT Workstation ID: [id number] Narrative 01/26/2025 1:[address] ANGIOGRAM [...] MD 01/26/2025 1:54 AM EDT Workstation ID: [id number] Maru Martinez LANDSCAPE FOREMAN IMG CT ORDERABLES Final Re sult * CT Head Without Contrast (01/26/2025 1:31 AM EDT) Anatomical Region Laterality Modality Head N/A Computed Tomogra phy 01/26/2025 1:45 AM EDT Impressions 01/26/2025 1:46 AM EDT Impression: No acute intracranial abnormality. Electronically Signed: Jesus Peterson MD 01/26/2025 1:46 AM EDT Workstation ID: [id number] Narrative 01/26/2025 1:[address] HEAD [...] MD 01/26/2025 1:46 AM EDT Workstation ID: [id number] Maru Martinez LANDSCAPE FOREMAN IMG CT ORDERABLES Final Re sult * IMAGING SCANNED (01/26/2025) Only the most recent of7 resultswithin the time period is included. Anatomical Region Laterality Modality Radiographic Tammy ging [facility] IMG DIAGNOSTIC IMAGING ORDERA BLES Final Result * LABS SCANNED (01/26/2025) [facility] LAB BLOOD ORDERABLES Final Re sult [...] Hepatitis C Genotype (12/15/2021 11:55 AM EDT) Hepatitis C Genotype Comment [facility] Comment: Specimen has insufficient hepatitis C virus RNA to obtain genotyping results. This genotyping assay should only be used for known HCV positive patients with HCV RNA levels above 1000 IU/mL. Please note Comment [facility] Comment: This test was developed and its performance characteristics determined by [facility]. It has not been cleared or approved by the U.S. Food and Drug Administration. The FDA has determined that such clearance or approval is not necessary. This test is used for clinical purposes. It should not be regarded as investigational or for research. Blood 12/15/2021 11:5 5 AM EDT 12/16/2021 Narrative [facility] - 12/21/2021 8:08 PM EDT Performed at: [address] [id number] Service Desk Team Lead: Genna Davenport MD, Phone: [phone] Patient Fasting: Y Connor Nunez MD LAB BLOOD ORDERABLES Fin al Result Performing Organization Address City/State/[facility] Co de Phone Number [facility] [address] [place] [address], [facility] [address] [place] [address], * SCANNED - MAMMO (08/23/2021) Anatomical Region Laterality Modality Other Connor Nunez MD CHART REVIEW TABS Fin al Result from Last 3 Months or Most Recently Relevant to Health [place] [address] MEDICARE A & B Member Subscriber Plan / Payer (Ef fective 2013-Present) Name:Farrah Atkinson Member ID:[id number] Relation to Subscriber:Self Name:Farrah Atkinson Subscriber ID:[id number] Payer ID:[id number] Group ID:Not on file Type:Not on file Address: [address] MEDICARE SUPPLEMENT Advance Directives * CPR [...] Of Support Discussed With: Patient Care Teams Laboratory Specialist Relationship Specialty Start Date End Date Connor Gomez MD [address] [place] [address] PCP - General Family Medicine 01/26/25
--- OUTSIDE RECORDS SUMMARY | 2025-03-03 14:25 | XMS_ITS | Encounter Summary ---
Author Organization [facility] Address [address] [place] [id number] Care Team Providers Care Process Controller Name Role Phone Connor Gomez MD Primary Care Provider [phone] Reason for Visit * Reason Comments Med Refill Encounter Details Date Type Department Care Team (Late st Contact Info) Description 12/22/2021 Refill [facility] FAMILY MEDICINE [address] [place] [address] Connor Nunez MD [address] [place] [address] Chronic arthritis associated with viral [...] documented as of this encounter Care Teams Process Controller Relationship Specialty Start Date End Date Connor Gomez MD [facility] [place] [address] PCP - General Family Medicine 01/26/25 documented as of this encounter
--- OUTSIDE RECORDS SUMMARY | 2025-03-03 14:25 | XMS_ITS | Encounter Summary ---
Author Organization [facility] Address [address] [place] [address] Care Team Providers Care Lowerator Operator Name Role Phone Connor Gomez MD Primary Care Provider [phone]- [phone] Encounter Details Date Type Department Care Team (Late st Contact Info) Description 01/29/2025 Readmission Management [facility] [address] [place] [address] Bg Shaikh, RN Social History Tobacco [...] and heating? Patient unable to answer 01/26/2025 [facility] - Occupational Stress [...] things needed for daily living? No 01/26/2025 [facility] Utilities Answer Date Recorded In the past 12 months has th [facility] electric, gas, oil, or water company threatened [...] Patient unable to answer 01/26/2025 Preferred Language Swiss 01/26/2025 Comments No Sex and Gender Information Value Date Recorded Sex Assigned at Not on file Legal Sex Female 10:14 AM EST Gender Identity Not on file Sexual Orientation Not on file documented as of this encounter Miscellaneous Notes * Outreach Note - Bg Shaikh RN - 01/29/2025 8:01 PM EDT Prep Survey Flowsheet Row Responses [facility] facility patient discharged from? [place] Is LACE score less than 10 ? [...] documented as of this encounter Care Teams Lowerator Operator Relationship Specialty Start Date End Date Connor Gomez MD [address] [place] [address] PCP - General Family Medicine 01/26/25 documented as of this encounter
--- OUTSIDE RECORDS SUMMARY | 2025-03-03 14:25 | XMS_ITS | Encounter Summary ---
Author Organization [facility] Address [address] [place] [address] Care Team Providers Care Vp Director Of Creative Strategy Name Role Phone Connor Gomez MD Primary Care Provider [phone] Encounter Details Date Type Department Care Team [...] and heating? Patient unable to answer 01/26/2025 [facility] [place] of Occupat ional Health - Occupational Stress [...] the past 12 months has th e [employer], gas, oil, or water company threatened to [...] Patient unable to answer 01/26/2025 Preferred Language Jamaican 01/26/2025 Comments No Sex and Gender Information [...] documented as of this encounter Care Teams Vp Director Of Creative Strategy Relationship Specialty Start Date End Date Connor Gomez MD [address] [place] [address] PCP - General Family Medicine 01/26/25 documented as of this encounter
--- OUTSIDE RECORDS SUMMARY | 2025-03-03 14:26 | XMS_ITS | Patient Health Record ---
Author Organization [facility] Address [address] [place] [address] Care Team Providers Care Metalizer Field Operation Name Role Phone Timothy Granda DO Primary Care Provider Tha Chaudhry Unavailable [phone] Jessu Rose Unavailable Unavailable Reason For Referral No Information Encounters Encounter Location Date Provider Diagnosis [facility] [address] [place] [address] 04/01/2024 Tha Krishnamurthy [facility] [address] [place] [address] 05/13/2024 Tha Krishnamurthy [facility] [address] [place] [address] 06/17/2024 Tha Krishnamurthy Plan Of Treatment No Information Insurance Providers Payer Name Payer Address Payer Phone Subscriber Number Group Number Insured Name Patient Relationship to Insured Coverage Start Date Coverage End Date Medicare CGS Administrators [address] [phone] Farrah Anna Self - patient is the insured
--- OUTSIDE RECORDS SUMMARY | 2025-03-03 14:26 | XMS_ITS | Clinical Summary ---
Author Organization [facility] 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
--- OUTSIDE RECORDS SUMMARY | 2025-03-03 14:26 | XMS_ITS ---
Author Organization [facility] Address [address] [place] [id number] Care Team Providers Care Scale Attendant Name Role Phone Timothy Granda DO Primary Care Provider [phone] Hepatitis C Program Status:Paused (Paused) Start date:08/03/2022 Enrollment date:08/03/2022 Enrollment reason:HCV Continued Care and Services Coordination
--- OUTSIDE RECORDS SUMMARY | 2025-03-03 14:26 | XMS_ITS | Encounter Summary ---
Author Organization [facility] Address [address], [address] [place] [address] Care Team Providers Care Canvas Cutter Name Role Phone Unavailable Primary Care Provider Unavailabl e Reason for Visit * Reason Onset Date Comments Surgery Scheduling 12/08/2024 Encounter Details Date Type Department Care Team (Late st Contact Info) Description 12/08/2024 Telephone [facility], [place] [id number] Sharon Paulino MD [address] [place] [address] [address] [place] [address] Surgery Scheduling Social History Tobacco [...]
--- OUTSIDE RECORDS SUMMARY | 2025-03-03 14:26 | XMS_ITS | Encounter Summary ---
Author Organization [facility] Address [address] [place] [address] Care Team Providers Care Backup Operator Name Role Phone Timothy Granda DO Primary Care Provider [phone] Sadia Campo LIQUOR BRIDGE OPERATOR HELPER Unavailable Unavailable Encounter Details Date Type Department Care Team (Late st Contact Info) Description 07/24/2023 Lab Requisition [facility] [address] [place] [address] Miky Coleman MD [address] [place] [address] Encounter for general adult medical [...] drink first t mini in the morning (EYE-GROUND WATER PUMP INSTALLER) to steady your nerves or to get [...] 07/20/2025 10:40 AM EDT Office Visit [facility] Nephrology, Bone & Mineral Metabolism [address], [address] [place] [address] Gutierrez Domínguez MD [address] [place] [address] documented as of this encounter Procedures [...] MICROBIOLOGY - GEN ERAL ORDERABLES Final Result [facility] [address] [place] [address] documented in this encounter Visit Diagnoses Diagnosis [...] documented as of this encounter Care Teams Backup Operator Relationship Specialty Start Date End Date Timothy Granda DO [address] [place] [address] PCP - General 05/25/23 Sadia Campo, LIQUOR [place] [address] [employer]man [employer] 08/03/22 06/21/24 documented as of this encounter
--- OUTSIDE RECORDS SUMMARY | 2025-03-03 14:29 | XMS_ITS | Encounter Summary ---
Author Organization [employer] ([place], [place], [place], [place], [place]) Address [address] [place] [address] Care Team Providers Care Ict Managers Name Role Phone [facility], Provider Not In The System Primary Care Provider Unavailable Encounter Details Date Type Department Care Team (Late st Contact Info) Description 04/28/2019 Transcribed Document [facility] [place] [address] ProviderJean-Claude MD [address] [place] [address] Social History Tobacco Use Types [...] - Historical ProviderMD - 04/28/2019 7:06 AM NEWSPAPER INSERTER Pre Procedure Adult Entered On: 04/28/2019 7:12 EST Performed On: 04/28/2019 7:06 EST by ISAMAR MORRISON RN Height and Weight, Clinical Dosing Height Source : Stated Height Entry Format : Erwin Height, Feet : 5 ft(Converted to: 152 cm, 60 Inch) Height, Inches : 2 Inch(Converted to: 0 ft 2 Inch, 5.08 cm) Clinical Height : 157.48 cm Weight Source : Standing scale Weight Entry Format : Erwin Clinical Dosing Weight : 85 kg Weight, Pounds : 187 lb Body Surface Area (BSA) : 1.86 m2 Body Mass Index : 34.3 kg/m2 (HI) [place] Body Weight : 50 kg ISAMAR MORRISON [...] ISAMAR MORRISON RN - 04/28/2019 7:06 EST [place] Suicide Severity Rating Scale (C-SSRS) CSSRS Past [...] Obtained From : Patient Primary Language : Guinean Preferred Communication Mode : Verbal Communication Barrier [...] Scale Risk Level : 0-24 Low Risk [place] Fall Interventions : Bed in low position, [...] on filedocumented in this encounter Care Teams Ict Managers Relationship Specialty Start Date End Date Leslee, Provider Not In The System, [place] [address] PCP - General 04/16/23 documented as of this encounter
--- OUTSIDE RECORDS SUMMARY | 2025-03-03 14:29 | XMS_ITS | Encounter Summary ---
Author Organization [employer] ([place], [place], [place], [place], [place]) Address [address] [place] [address] Care Team Providers Care Quality Manager Name Role Phone Sj, Provider Not In The System Primary Care Provider Unavailable Encounter Details Date Type Department Care Team (Late st Contact Info) Description 04/28/[address] [facility] Family Medicine [facility] [place] [address] ProviderJean-Claude MD [address] [place] [address] Social History Tobacco Use Types [...] - Historical ProviderMD - 04/28/2019 8:05 AM CORPORATE PILOT ADI Main OR IntraOp Summary Primary Physician: MADISON OSPINA MD-ORT Finalized Date/Time: 04/28/19 08:39:15 Pt. Name: MOISE ATKINSON D.O.B./Sex: 1950 Female Med Rec #: [id number] Physician: MADISON OSPINA MD-ORT Financial #: [id number] Pt. Type: O Room/Bed: Admit/Disch: 04/28/19 05:30:00 - Institution: [facility] Intra Case Attendance Entry 1 Entry 2 Entry 3 Case Attendee MADISON OSPINA MD-ORT WICKER, KAREN KIM, ARIA WATERS RN Role Performed Surgeon/Proceduralist, LIVESTOCK YARD ATTENDANT/Nurse Winter Sports Manager Cna Pct, First First Time In 04/28/19 07:39:00 04/28/19 [...] [facility] IntraOp Case Attendance Audit 04/28/19 08:34:51 Boomboat Operator: LONGGA Modifier: LONGGA 1 <+> Time Out 1 <*> Procedure Knee Arthroscopy 2 <+> Time Out 2 <*> Procedure Knee Arthroscopy 3 <+> Time Out 3 <*> Procedure Knee Arthroscopy 4 <+> Time Out 4 <*> Procedure Knee Arthroscopy 5 <+> Time Out 5 <*> Procedure Knee Arthroscopy 04/28/19 08:07:14 Boomboat Operator: LONGGA Modifier: LONGGA <+> 1 Time [...] [facility] IntraOp Case Times Audit 04/28/19 08:34:50 Boomboat Operator: LONGGA Modifier: LONGGA <+> 1 Out Room Time <+> 1 Stop Time 04/28/19 08:31:56 Boomboat Operator: LONGGA Modifier: LONGGA <+> 1 Stop [...] IntraOp Departure from OR Audit 04/28/19 08:32:27 Boomboat Operator: EMBER Modifier: LONGGA 1 <*> Patient [...] RN 04/28/19 08:15:47 [facility] IntraOp General Case Central Sterile Tech 1 Case Information OR OR 05 SJE Case Level 1 Room Verified Yes Wound Class I - Clean Specialty SN Orthopedic Anesthesia Type General ASA Class 3 Diagnosis Preop Diagnosis PATELLAR CHONDROMALACIA RIGHT KNEE Postop Same As Preop No Postop Diagnosis DICTATED BY Mary Last Modified By: ARIA MELCHOR RN 04/28/19 08:15:39 [facility] IntraOp General Case Data Audit 04/28/19 08:15:39 Boomboat Operator: EMBER Modifier: LONGGA <+> 1 ASA [...] Entry 1 Medication/Irrigant epinephrine 30mg/30ml vial - [id number] Route of 3ML/3000ML OF NS Administration IRRIGATION [...] [facility] IntraOp Patient Positioning Audit 04/28/19 08:17:49 Boomboat Operator: LONGGA Modifier: LONGGA 1 <*> Procedure [...] [facility]JE IntraOp Surgical Procedures Audit 04/28/19 08:31:50 Boomboat Operator: LONGGA Modifier: LONGGA 1 <*> Procedure Knee Arthroscopy 1 <+> Stop 04/28/19 08:27:35 Boomboat Operator: LONGGA Modifier: LONGGA 1 <*> Procedure Knee Arthroscopy 1 <*> Additional Procedure Description RIGHT KNEE ARTHROSCOPY FOR RETROPATELLAR CHONDROPLASTY AND PARTIAL MENISCECTOMY 04/28/19 08:21:54 Boomboat Operator: LONGGA Modifier: LONGGA 1 <*> Procedure Knee Arthroscopy 1 <*> Additional Procedure Description LEFT KNEE ARTHROSCOPY FOR RETROPATELLAR CHONDROPLASTY AND PARTIAL MENISCECTOMY SJE IntraOp Temp Regulation Devices Entry 1 Temp Regulation Temperature Forced Air Warming Regulation Device device Temperature 4765 Regulation Device Serial/Unit Number Temperature Upper body Regulation Site Temperature MOISE MANE, LIVESTOCK YARD ATTENDANT Regulation Device Applied by Last Modified By: [...] 08:31:38 [facility] IntraOp Tourniquet Audit 04/28/19 08:31:38 Boomboat Operator: EMBER Modifier: EMBER <+> 1 Stop Time Case Comments <None> Finalized By: ARIA MELCHOR, RN Document Signatures Signed By: ARIA MELCHOR RN 04/28/19 08:39 Electronically signed by May [facility] Conversion Diathermy Equipment Repairer Cerner at 07/23/2022 4:21 PM CDT documented in this encounter Plan of Treatment Not on file documented as of this encounter Visit Diagnoses Not on filedocumented in this encounter Care Teams Quality Manager Relationship Specialty Start Date End Date Deejay, Provider Not In The System, [place] [address] PCP - General 04/16/23 documented as of this encounter
--- OUTSIDE RECORDS SUMMARY | 2025-03-03 14:30 | XMS_ITS | Encounter Summary ---
Author Organization [facility] Address [address] [place] [address] Care Team Providers Care Gear Shaver Set Up Operator Name Role Phone Chandra Leahy MD Primary Care Provider [phone] Timothy Granda DO Primary Care Provider [phone] Sadia Campo SENIOR MEDICAL WRITER Unavailable Unavailable Encounter Details Date Type Department Care Team (Late st Contact Info) Description 08/14/2022 Lab Requisition [facility] [address] [place] [address] Dilip Lloyd MD [address] [address] Encounter for general adult medical [...] drink first t mini in the morning (EYE-HAND MARKER) to steady your nerves or to get [...] 10:40 AM EDT Office Visit [facility] Nephrology, Bone & Mineral Metabolism [address], [address] [place] [address] Gutierrez Domínguez MD [address] [place] [address] documented as of this encounter [...] LAB MICROBIOLOGY - GENERAL ORDERABLES Final Result [facility] [address] [place] [address] documented in this encounter Visit Diagnoses Diagnosis Encounter for general adult medical examination without abnormal findings documented in this encounter Additional Health Concerns Infection Onset Date Last Indicated Resolved Time COVID-19 Rule-Out 07/22/2023 07/22/2023 07/22/2023 12:14 PM EDT C. difficile Rule-Out 07/26/2023 08/01/20232023 1:07 AM EDT Gastrointestinal Rule-Out 08/02/2023 08/01/2023 3:00 AM EDT documented as of this encounter Care Teams Gear Shaver Set Up Operator Relationship Specialty Start Date End Date Chandra Leahy MD [address] [place] [address] PCP - General 08/02/22 05/24/23 Timothy Granda DO [address] [place] [address] PCP - General 05/25/23 [place] [address] Film Spooler Hotel Reservationist 08/03/22 06/21/24 documented as of this encounter
--- OUTSIDE RECORDS SUMMARY | 2025-03-03 14:30 | XMS_ITS | Encounter Summary ---
Author Organization [employer] ([place], [place], [place], [place], [place]) Address [address] [place] [address] Care Team Providers Care Fermenter Champagne Name Role Phone [facility], Provider Not In The System Primary Care Provider Unavailable Encounter Details Date Type Department Care Team (Late st Contact Info) Description 04/28/2019 Transcribed Document [facility] [place] [facility] [place] [address] ProviderJean-Claude MD [address] [place], [place] [id number] Social History Tobacco Use Types Packs/Day Years Used Date Smoking Tobacco: Never Assessed Comments Unknown Sex and Gender Information Value Date Recorded Sex Assigned at Not on file Legal Sex Female 5:42 PM CDT Gender Identity Not on file Sexual Orientation Not on file documented as of this encounter Miscellaneous Notes * Cerner Conversion Note - Historical ProviderMD - 04/28/2019 8:05 AM PEST CONTROL WORKER HELPER ADI Main OR PACU Summary Primary Physician: MADISON OSPINA MD-ORT Finalized Date/Time: 04/28/19 09:40:55 Pt. Name: MOISE ATKINSON/Sex: 1950 Female Med Rec #: [id number] Physician: MADISON OSPINA MD-ORT Financial #: [id number] Pt. Type: O Room/Bed: Admit/Disch: 04/28/19 05:30:00 - Institution: [facility] OR PACU Case Times Entry 1 In PACU I 04/28/19 08:38:00 Ready for PACU 04/28/19 09:33:00 Discharge Discharge from PACU 04/28/19 09:33:00 I Last Modified By: Eduarda Patel Rn Patient Care Bedside 04/28/19 09:40:12 S[facility] Main OR PACU Case Times Audit 04/28/19 09:40:12 Programming Engineer: SADE Modifier: SADE <+> 1 Ready for PACU Discharge <+> 1 Discharge from PACU I Finalized By: Eduarda Patel Rn Patient Care Bedside Document Signatures Signed By: Eduarda Patel Rn Patient Care Bedside 04/28/19 09:40 documented in this encounter Plan of Treatment Not on file documented as of this encounter Visit Diagnoses Not on filedocumented in this encounter Care Teams Fermenter Champagne Relationship Specialty Start Date End Date [facility], Provider Not In The System, [place] [address] PCP - General 04/16/23 documented as of this encounter
--- OUTSIDE RECORDS SUMMARY | 2025-03-03 14:30 | XMS_ITS | Encounter Summary ---
Author Organization [employer] ([place], [place], [place], [place], [place]) Address [address] [place] [address] Care Team Providers Care Paper Conservator Name Role Phone [facility], Provider Not In The System Primary Care Provider Unavailable Encounter Details Date Type Department Care Team (Late st Contact Info) Description 04/28/2019 Transcribed Document [facility] [place] [facility] [place] [address] ProviderJean-Claude MD [address], [place] [id number] Social History Tobacco Use Types Packs/Day Years Used Date Smoking Tobacco: Never Assessed Comments Unknown Sex and Gender Information Value Date Recorded Sex Assigned at Not on file Legal Sex Female 5:42 PM CDT Gender Identity Not on file Sexual Orientation Not on file documented as of this encounter Miscellaneous Notes * Cerner Conversion Note - Historical ProviderMD - 04/28/2019 8:05 AM DENTAL AIDE ADI Main OR PostOp Summary Primary Physician: MADISON OSPINA MD-ORT Finalized Date/Time: 04/28/19 10:18:29 Pt. Name: MOISE ATKINSON/Sex: 1950 Female Med Rec #: [id number] Physician: MADISON OSPINA MD-ORT Financial #: [id number] Pt. Type: O Room/Bed: Admit/Disch: 04/28/19 05:30:00 - Institution: [facility] Main OR PostOp Case Times Entry 1 In PACU II 04/28/19 09:36:00 Ready for PACU II 04/28/19 10:15:00 Discharge Discharge from PACU 04/28/19 10:15:00 II Last Modified By: Shanel Conrad SPENCER 04/28/19 10:18:24 Finalized By: Shanel Conrad, RN Document Signatures Signed By: Shanel Conrad RN 04/28/19 10:18 Electronically signed by May [facility] Conversion Plant Utilities Engineer Cerner at 07/23/2022 4:27 PM CDT documented in this encounter Plan of Treatment Not on file documented as of this encounter Visit Diagnoses Not on filedocumented in this encounter Care Teams Paper Conservator Relationship Specialty Start Date End Date [facility], Provider Not In The System, [place] [address] PCP - General 04/16/23 documented as of this encounter
--- OUTSIDE RECORDS SUMMARY | 2025-03-03 14:30 | XMS_ITS | Encounter Summary ---
Author Organization [employer] ([place], [place], [place], [place], [place]) Address [address] [place] [address] Care Team Providers Care Firefighting Equipment Specialist Name Role Phone [facility], Provider Not In The System Primary Care Provider Unavailable Encounter Details Date Type Department Care Team (Late st Contact Info) Description 04/28/2019 Transcribed Document [facility] [place] [address] [place] [address] ProviderJean-Claude MD [address] [place] [address] Social History Tobacco Use Types [...] - Historical ProviderMD - 04/28/2019 9:51 AM LIQUEFACTION PLANT OPERATOR [place] [id number] MOISE ATKINSON :1950 Visit Time:04/28/2019 What to do next Your Diagnosis Pain in unspecified knee, Pain in unspecified knee Instructions From Your Care Team No driving or legal decision for 24 hours after anesthesia. may advance diet as tolerated. May take Rich[place] 10-325mg 1 tablet by mouth every 4-6 [...] Within 2 to 3 days Where: [address] [address] [place] [address]- Medications What How Much When Instructions Next [...] activities are safe for you. ??? Take rtyd-ina-suxqmro and prescription medicines only as told by [...] 06/25/2001 Document Revised: 11/02/2017 Document Reviewed: 11/02/2017 Crush on original products Interactive Patient Education ?? 2019 Crush on original products Inc. Knee Arthroscopy, Care After Refer to [...] activities are safe for you. ??? Perform leoyi-qy-hztlgq exercises only as directed by your health [...] 10/06/2005 Document Revised: 08/18/2016 Document Reviewed: 03/15/2015 Crush on original products Interactive Patient Education ?? 2018 [employer]. acetaminophen and hydrocodone (a SEET a MIN oh fen and ladonna droe KOE done) Hycet, Lorcet, Rich[place], Verdrocet, Vicodin, Xodol, Zamicet What is the [...] may report side effects to FDA at 1-675-QFC-3775. What other drugs will affect acetaminophen and [...] affect acetaminophen and hydrocodone, including prescription and fdkx-swt-qqwumko medicines, vitamins, and herbal products. Not all [...] to ensure that the information provided by [facility]. ('Multum') is accurate, up-to-date, and complete, but no guarantee is made to that effect. Drug information contained herein may be time sensitive. SoftLayer information has been compiled for use by healthcare practitioners and consumers in the [place] and therefore SoftLayer does not warrant that uses outside of the [place] are appropriate, unless specifically indicated otherwise. MIGSIFs drug information does not endorse drugs, diagnose patients or recommend therapy. Paktor drug information is an informational resource designed [...] effective or appropriate for any given patient. SoftLayer does not assume any responsibility for any aspect of healthcare administered with the aid of information SoftLayer provides. The information contained herein is not intended to cover all possible uses, directions, precautions, warnings, drug interactions, allergic reactions, or adverse effects. If you have questions about the drugs you are taking, check with your doctor, nurse or pharmacist. Copyright 5880-9347 [facility]. Version: 15.02. Revision Date: 02/04/2018. Emergency Awareness [...] Assistance with quitting is available by contacting 1-761-VFQL-NOW. This is a free resource providing counseling, [...] was given the opportunity to ask questions. Patient/Police Judge Name: Patient/Police Judge Signature: Relationship to Patient: Clinician/Hospital Police Judge Signature: Date: documented in this encounter Plan of Treatment Not on file documented as of this encounter Visit Diagnoses Not on filedocumented in this encounter Care Teams Firefighting Equipment Specialist Relationship Specialty Start Date End Date [facility], Provider Not In The System, [place] [address] PCP - General 04/16/23 documented as of this encounter
--- OUTSIDE RECORDS SUMMARY | 2025-03-03 14:30 | XMS_ITS | Clinical Summary ---
Author Organization [employer] ([place], [place], [place], [place], [place]) Address [address] [place] [address] Care Team Providers Care Payroll Tax Analyst Name Role Phone Sj, Provider Not [...] Date Dereje rded Speak language other than Belarusian at home Not on file 04/12/2023 Want [...] - 1-dose 75+ series) 09/26/2026 Care Teams Payroll Tax Analyst Relationship Specialty Start Date End Date [facility], Provider Not In The System, [place] [address] PCP - General 04/16/23
--- OUTSIDE RECORDS SUMMARY | 2025-03-03 14:30 | XMS_ITS | Referral Summary ---
Author Organization [employer] ([place], [place], [place], [place], [place]) Address [address] [place] [address] Care Team Providers Care Book Agent Name Role Phone [facility], Provider [...] Date Dereje rded Speak language other than Colombian at home Not on file 04/12/2023 Want [...] of Treatment Not on file Care Teams Book Agent Relationship Specialty Start Date End Date [facility], Provider Not In The System, [place] [address] PCP - General 04/16/23
--- OUTSIDE RECORDS SUMMARY | 2025-03-03 14:30 | XMS_ITS | Encounter Summary ---
Author Organization [employer] ([place], [place], [place], [place], [place]) Address [address] [place] [address] Care Team Providers Care Medical Professionals Name Role Phone Sj, Provider Not In The System Primary Care Provider Unavailable Encounter Details Date Type Department Care Team (Late st Contact Info) Description 04/28/2019 Transcribed Document [facility] [place] Medicine [facility] [place] [address] ProviderJean-Claude MD [address] [place] [address] Social History Tobacco Use Types [...] - Jean-Claude ProviderMD - 04/28/2019 9:47 AM PROFESSOR OF ECONOMICS Patient Education Materials Follows: General Anesthesia, Adult, [...] activities are safe for you. ??? Take ajjc-nmo-pkysqxp and prescription medicines only as told by [...] 06/25/2001 Document Revised: 11/02/2017 Document Reviewed: 11/02/2017 [employer] Interactive Patient Education ? 2019 [employer] Inc. Knee Arthroscopy, Care After Refer to [...] activities are safe for you. ??? Perform tffwn-to-fywebs exercises only as directed by your health [...] 03/15/2015 Elsevier Interactive Patient Education ? 2018 [employer]. documented in this encounter Plan of Treatment Not on file documented as of this encounter Visit Diagnoses Not on filedocumented in this encounter Care Teams Medical Professionals Relationship Specialty Start Date End Date Leslee, Provider Not In The System, [place] [address] PCP - General 04/16/23 documented as of this encounter
--- OUTSIDE RECORDS SUMMARY | 2025-03-03 14:30 | XMS_ITS | Encounter Summary ---
Author Organization [employer] ([place], [place], [place], [place], [place]) Address [address] [place] [address] Care Team Providers Care English Horn Player Name Role Phone [facility], Provider Not In The System Primary Care Provider Unavailable Encounter Details Date Type Department Care Team (Late st Contact Info) Description 04/28/2019 Transcribed Document [facility] [place] Medicine [place] [address] ProviderJean-Claude MD [address] [place] [address] Social History Tobacco Use Types [...] - Historical ProviderMD - 04/28/2019 8:29 AM AXLE BEARING POLISHER Pain Assessment Entered On: 04/28/2019 9:28 EST [...] EST Electronically signed by Leslee Olvera Conversion Special Warfare Boat Operator Cerner at 07/23/2022 4:31 PM CDT documented in this encounter Plan of Treatment Not on file documented as of this encounter Visit Diagnoses Not on filedocumented in this encounter Care Teams English Horn Player Relationship Specialty Start Date End Date [facility], Provider Not In The System, [place] [address] PCP - General 04/16/23 documented as of this encounter
--- OUTSIDE RECORDS SUMMARY | 2025-03-03 14:30 | XMS_ITS | Encounter Summary ---
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 may advance diet as tolerated. May take [place] 10-325mg 1 tablet by mouth every 4-6 [...] EST Comments Appointment has been made Where: [address] [facility] [address] [place] [address]- Medications What How Much When Instructions Next [...] activities are safe for you. ??? Take gsee-coz-wkskjsz and prescription medicines only as told by [...] 06/25/2001 Document Revised: 11/02/2017 Document Reviewed: 11/02/2017 K[employer] Interactive Patient Education ?? 2019 [employer] Inc. Knee Arthroscopy, Care After Refer to [...] activities are safe for you. ??? Perform arazf-ca-okppxw exercises only as directed by your health [...] 10/06/2005 Document Revised: 08/18/2016 Document Reviewed: 03/15/2015 [employer] Interactive Patient Education ?? 2018 Transfer Course Computer System ([place]). acetaminophen and hydrocodone (a SEET a MIN oh fen and ladonna droe KOE done) Hycet, Lorcet, [place], Verdrocet, Vicodin, Xodol, Zamicet What is the [...] may report side effects to FDA at 7-359-VXS-0185. What other drugs will affect acetaminophen and [...] affect acetaminophen and hydrocodone, including prescription and bntg-pwv-fbgfdao medicines, vitamins, and herbal products. Not all [...] to ensure that the information provided by [employer]. ('Multum') is accurate, up-to-date, and complete, but no guarantee is made to that effect. Drug information contained herein may be time sensitive. ConteXtream information has been compiled for use by healthcare practitioners and consumers in the [place] and therefore ConteXtream does not warrant that uses outside of the [place] are appropriate, unless specifically indicated otherwise. Vends drug information does not endorse drugs, diagnose patients or recommend therapy. Finexkap drug information is an informational resource designed [...] effective or appropriate for any given patient. ConteXtream does not assume any responsibility for any aspect of healthcare administered with the aid of information ConteXtream provides. The information contained herein is not intended to cover all possible uses, directions, precautions, warnings, drug interactions, allergic reactions, or adverse effects. If you have questions about the drugs you are taking, check with your doctor, nurse or pharmacist. Copyright 6839-3703 [employer]. Version: 15.02. Revision Date: 02/04/2018. Emergency Awareness [...] Assistance with quitting is available by contacting 7-738-VGCS-NOW. This is a free resource providing counseling, [...] was given the opportunity to ask questions. Patient/Line Technician Name: Patient/Line Technician Signature: Relationship to Patient: Clinician/Hospital Line Technician Signature: Date: documented in this encounter Plan of Treatment Not on file documented as of this encounter Visit Diagnoses Not on filedocumented in this encounter Care Teams Tv Technician Relationship Specialty Start Date End Date [facility], Provider Not In The System, [place] [address] PCP - General 04/16/23 documented as of this encounter
--- OUTSIDE RECORDS SUMMARY | 2025-03-03 14:30 | XMS_ITS | Encounter Summary ---
Author Organization [employer] ([place], [place], [place], [place], [place]) Address [address] [place] [address] Care Team Providers Care Data Modeler Name Role Phone [facility], Provider Not In The System Primary Care Provider Unavailable Encounter Details Date Type Department Care Team (Late st Contact Info) Description 04/28/2019 Transcribed Document [facility] [place] Family Medicine [address] [place] [address] ProviderJean-Claude MD [address] [place], [place] [id number] Social History Tobacco Use Types Packs/Day Years Used Date Smoking Tobacco: Never Assessed Comments Unknown Sex and Gender Information Value Date Recorded Sex Assigned at Not on file Legal Sex Female 5:42 PM CDT Gender Identity Not on file Sexual Orientation Not on file documented as of this encounter Miscellaneous Notes * Cerner Conversion Note - Historical ProviderMD - 04/28/2019 8:05 AM PRINTS AND DRAWINGS CURATOR ADI Main OR PreOp Summary Primary Physician: MADISON OSPINA MD-ORT Finalized Date/Time: 04/28/19 09:32:12 Pt. Name: MOISE ATKINSON/Sex: 1950 Female Med Rec #: [id number] Physician: MADISON OSPINA MD-ORT Financial #: [id number] Pt. Type: O Room/Bed: Admit/Disch: 04/28/19 05:30:00 - Institution: [facility] [place] PreOp Case Times Entry 1 In Preop 04/28/19 05:40:00 Ready for Holding n/a Room Patient Ready for 04/28/19 07:15:00 Surgery Patient Out of Preop 04/28/19 07:36:00 Patient Out of n/a Holding Room Last Modified By: ISAMAR MORRISON RN 04/28/19 09:32:08 David PreOp Case Times Audit 04/28/19 09:32:08 Billing Customer Service Representative: [email or web address] Modifier: [email or web address] <+> 1 Patient Out of Preop Finalized By: ISAMAR MORRISON, RN Document Signatures Signed By: ISAMAR MORRISON RN 04/28/19 09:32 Electronically signed by May [facility] Conversion Contact Lens Polisher Cerner at 07/23/2022 4:31 PM CDT documented in this encounter Plan of Treatment Not on file documented as of this encounter Visit Diagnoses Not on filedocumented in this encounter Care Teams Data Modeler Relationship Specialty Start Date End Date [facility], Provider Not In The System, [place] [address] PCP - General 04/16/23 documented as of this encounter
--- OUTSIDE RECORDS SUMMARY | 2025-03-03 14:30 | XMS_ITS | Encounter Summary ---
Author Organization [facility] Address [address] [place] [address] Care Team Providers Care Grease Remover Name Role Phone Timothy Granda DO Primary Care Provider Encounter Details Date Type Department Care Team [...] drink first t mini in the morning (EYE-MILK TREATER) to steady your nerves or to get rid of a hangover? 0 11/15/2023 CAGE Questionnaire Score 0 024 Utilities Answer Date Recorded In the past 12 months has th e [employer], gas, oil, or water company threatened to [...] Description 07/20/2025 10:40 AM EDT Office Visit [facility] [employer] [facility] [address], [address] [place] [address] Gutierrez Domínguez MD [address] [place] [id number] documented as of this encounter Visit Diagnoses Not on filedocumented in this encounter Additional Health Concerns Assessment Noted Time A fall risk assessment has been complete d for the patient 01/19/2025 10:00 AM EDT A Body Mass Index follow-up plan has been documented for the patient 01/20/2025 11:25 AM EDT documented as of this encounter Care Teams Grease Remover Relationship Specialty Start Date End Date Timothy Granda DO [address] [place] [address] PCP - General 05/25/23 documented as of this encounter
--- OUTSIDE RECORDS SUMMARY | 2025-03-03 14:30 | XMS_ITS | Encounter Summary ---
Author Organization [employer] ([place], [place], [place], [place], [place]) Address [address] [place] [address] Care Team Providers Care Lcpc Name Role Phone Sj, Provider Not In The System Primary Care Provider Unavailable Encounter Details Date Type Department Care Team (Late st Contact Info) Description 04/28/2019 Transcribed Document [facility] [place] [facility] [place] [address] ProviderJean-Claude MD [address], [place] [id number] Social History Tobacco Use Types Packs/Day Years Used Date Smoking Tobacco: Never Assessed Comments Unknown Sex and Gender Information Value Date Recorded Sex Assigned at Not on file Legal Sex Female 5:42 PM CDT Gender Identity Not on file Sexual Orientation Not on file documented as of this encounter Miscellaneous Notes * Cerner Conversion Note - Historical ProviderMD - 04/28/2019 9:04 AM SADDLE LINING STITCHER DATE OF PROCEDURE: 04/28/2019 SURGEON: Timothy Foster [...] to the recovery room in satisfactory condition. /[id number] MD MICHAEL Trujillo/JAZMYN / MICHAEL / MODL /[id number] Electronically signed by Leslee Olvera Conversion Teacher Of The Visually Impaired Cerner at 07/23/2022 4:25 PM CDT documented in this encounter Plan of Treatment Not on file documented as of this encounter Visit Diagnoses Not on filedocumented in this encounter Care Teams Lcpc Relationship Specialty Start Date End Date Leslee, Provider Not In The System, [place] [address] PCP - General 04/16/23 documented as of this encounter
--- OUTSIDE RECORDS SUMMARY | 2025-03-03 14:31 | XMS_ITS | Encounter Summary ---
Author Organization [facility] Address [address], [address] [place] [address] Care Team Providers Care Coverage Analyst Name Role Phone Unavailable Primary Care Provider Unavailabl e Reason for Visit * Reason Onset Date Comments Surgery Scheduling 11/20/2024 LT SHDLR Encounter Details Date Type Department Care Team (Late st Contact Info) Description 11/20/2024 Telephone [facility] [address] [place] [phone] [place] [address] [place] [address] [address] [place] [address] Surgery Scheduling (LT SHDLR) Social [...]
--- OUTSIDE RECORDS SUMMARY | 2025-03-03 14:31 | XMS_ITS | Encounter Summary ---
Author Organization [facility] Address [address], [address] [place] [address] Care Team Providers Care Automatic Spinning Lathe Operator Name Role Phone Unavailable Primary Care Provider Unavailabl e Encounter Details Date Type Department Care Team (Latest Contact Info) Description 11/05/2024 Prep for Procedure [facility] [address] [place] [address] ChathamLaisha MA History of total replacement of left [...]
--- OUTSIDE RECORDS SUMMARY | 2025-03-03 14:31 | XMS_ITS | Clinical Summary ---
Author Organization [facility] Address [address] [place] [address] Phone Care Team Providers Care Gas Fitter Name Role Phone Unavailable Primary Care [...] Insurance MEDICARE [place] PART A AND B [employer]
--- OUTSIDE RECORDS SUMMARY | 2025-03-03 14:32 | XMS_ITS | Clinical Summary ---
Author Organization [facility] Address [address] [place] [address] Care Team Providers Care Cello Teacher Name Role Phone Timothy Granda DO Primary Care Provider [phone] Allergies Active Allergy Reactions Criticality Noted Date [...] 01/19/2025 10:00 AM EDT Office Visit [facility] Nephrology, Bone & Mineral Metabolism [address], [address] [place] [address] Gutierrez Domínguez MD Acute kidney injury (Primary Dx); Vitamin D deficiency; CKD stage 3a, GFR 45-59 ml/min ([facility]); Chronic kidney disease-mineral and bone disorder (CKD-MBD); Secondary hyperparathyroidism of renal origin ([facility]); Hypertension, unspecified type; Hyperlipidemia, unspecified hyperlipidemia type 01/19/2025 Travel 01/07/2025 Orders Only [facility] [address] [place] [address] Shantal Solorio TIP (acute kidney injury) [...] place to sleep or slept in a prison (including now)? Patient refused 07/23/2023 CAGE ASSESSMENT [...] drink first t mini in the morning (EYE-STATE HISTORICAL SOCIETY DIRECTOR) to steady your nerves or to get rid of a hangover? 0 11/15/2023 CAGE Questionnaire Score 0 024 Utilities Answer Date Recorded In the past 12 months has th e [employer], gas, oil, or water company threatened to [...] Nephrology, Bone & Mineral Metabolism [address], [address] [place] [address] Gutierrez Domínguez MD [address] [place] [address] Health Maintenance Due Date Last Done Comments [facility]-Bone Density Scan 1950 [facility]-Infant/Child/Adol SDOH Screenings 1950 Diabetes: Dental Exam 09/26/1961 [facility]- SDOH Screenings 09/26/1969 [facility]-Adult SDOH Screenings 09/26/1969 [facility]-DTaP,Tdap,and Td Vaccines (1 - Tdap) 09/26/1970 CT Colonography 09/26/1996 [facility]-DNA 09/26/1996 FIT 09/26/1996 FOBT 09/26/1996 [facility]-Breast Cancer Screening 09/26/2001 [facility]-Zoster Vaccines (1 of 2) 09/26/2001 [facility]Medicare Annual Wellness (AWV) 03/13/2023 03/13/2022 [facility]-Diabetes: Hemoglobin A1C 01/19/2024 07/22/2023, 07/10/2018 [facility]-Depression Screening 03/27/2024 03/27/2023 [id number] Vaccine ( season) 2024 02/20/2024, 02/09/2023, 01/25/2022, [...] HEPATITIS PANEL Routine 08/02/2023 2:56 PM EDT HEMOGLOBIN A1C Add-On 07/22/2023 6:02 AM EDT FLEXIBLE SIGMOIDOSCOPY Routine 10:25 AM EST Colonic ischemia (CMS/HCC) Ileostomy in place (CMS/HCC) COLONOSCOPY Routine 08/08/2022 5:04 PM EDT Ileus (CMS/HCC) Dilation of cecum from Last 3 Months or Most Recently Relevant to Health Maintenance Results * Hepatitis panel, acute (08/02/2023 2:56 PM EDT) Hepatitis B Surf Antigen Negative Negative 08/02/2023 7:49 PM [address] [facility] Hepatitis A Antibody IgM Negative Negative 08/02/2023 7:49 PM EDT [facility] Hepatitis B Core Antibody IgM Negative Negative 08/02/2023 7:49 PM EDT [facility] Blood Venous blood specimen / Unknown [...] ORDERABLES Final R esult Performing Organization Address City/[facility] Co de Phone Number [facility] [address] [place] [address] * Hemoglobin A1c (07/22/2023 6:02 AM EDT) Hemoglobin A1c 4.9 <5.7 % 07/22/2023 11:20 AM EDT [facility] Blood Venous blood specimen / Unknown Venipuncture / Unknown 07/22/2023 6:02 AM EDT 07/22/2023 6:12 AM EDT Narrative [facility] - 07/22/2023 11:20 AM EDT HA1C Interpretive Data: Diagnosis of Diabetes: Diabetic > or = 6.5% Pre-diabetic 5.7 to 6.4% Non-diabetic < or = 5.6% Glycemic Targets for Type I and Type II Diabetics: Non- Adults <7.0% Adults <6.0% Children and Adolescents <7.5% Source: [place] [employer]. Standards of medical care in diabetes,2017. Diabetes Care.2017:40 (suppl 1):S1-S135. HbA1c assay performed by an ion-exchange chromatography method that is certified traceable to the DCCT. us Diana Banks APRN LAB BLOOD ORDERABLES Fin al Result Performing Organization Address City/[facility]/ZIP Co de Phone Number [facility] [address] [place] [phone] * Flexible Sigmoidoscopy (02/21/2023 10:25 AM EST) [...] Misti Page MD Adam Rooks, MD Proceduralist advanced manufacturing vice president Adama Montes, Chika Peterson CRNA, RN Endo Nurse Butch Little MD Fellow Tete Whitmore Endo Deputy County Clerk Preprocedure A history and physical has been [...] of bowel preparation was evaluated using the [place] Bowel Preparation Scale with scores of: left [...] of bowel preparation was evaluated using the [place] Bowel Preparation Scale with scores of: right [...] Recently Relevant to Health Maintenance Insurance MEDICARE [place] Advance Directives * Full Code (Latest Code [...] Patient has decision-making capacity? Yes Care Teams Cello Teacher Relationship Specialty Start Date End Date Timothy Granda DO [address] [place] [id number] PCP - General 05/25/23
== END 2025-03-02 23:59 | disposition home or self-care (01) ==
LOC: LAB.DROPOF 03-03 14:21
PROVIDERS: PCP Family Medicine; Visit Provider Family Medicine
DX: N39.0 Urinary tract infection, site not specified (principal); N18.32 Chronic kidney disease, stage 3b
CPT/HCPCS: 80053; 85025; 87086

== ENCOUNTER 2025-03-25 09:33 | Emergency (ER) | payer MEDICARE, SELFPAY ==
--- OUTSIDE RECORDS SUMMARY | 2024-04-17 06:45 | XMS_ITS ---
Author Organization [facility] Address [address] [place], [place] Care Team Providers Care Content Designer Name Role Phone Timothy Granda DO Primary Care Provider Tha Chaudhry Unavailable [phone] Jesus Rose Unavailable REASON FOR VISIT NEW PATIENT Encounters Encounter Location Date Provider Diagnosis [facility] [address] [place] [address] 04/17/2024 Jesus Rose Plan Of Treatment No Information Progress Notes * KRSITACIERRA MonroeMaryellenOB:[birth year] (74 yo F)Acc No.[id number]:04/17/2024 Progress Notes Patient: Farrah SEAY Provider: Leelee Rose :1950 A ge:73 Y S ex:Female Date:04/17/2024 [facility] Pcp:Timothy Granda DO Subjective: * Chief Complaints: * 1 . NEW PATIENT. * Medical History: Objective: * Vitals: Assessment: Plan: * Treatment: * * Electronic signature of Reza Rose APRN on 03/25/2025 at 09:47 AM EST Sign off status: Pending * Provider: Leelee Rose Date: 0 04/17/2024 Generated for Brisa conway/Sahra/Angela on: 05/26/2024 09:47 AM EST
--- OUTSIDE RECORDS SUMMARY | 2024-05-13 08:30 | XMS_ITS ---
Author Organization [facility] Address [address] [place] [address] Care Team Providers Care Wharf Operator Name Role Phone Timothy Granda DO Primary Care Provider Tha Chaudhry Unavailable [phone] REASON FOR VISIT NEW PATIENT Encounters Encounter Location Date Provider Diagnosis [facility] [address] [place] [address] 05/13/2024 Tha Krishnamurthy Plan Of Treatment No Information Progress Notes * Giselle ATKINSONOB:[birth year] (74 yo F)Acc No.[id number]:05/13/2024 Progress Notes Patient: Farrah SEAY Provider: Sarabjit Krishnamurthy MD :1950 A ge:73 Y S ex:Female Date:05/13/2024 [facility] Pcp:Timothy Granda DO Subjective: * Chief Complaints: * 1 . NEW PATIENT. * Medical History: Objective: * Vitals: Assessment: Plan: * Treatment: * * Electronic signature of Didier Krishnamurthy MD on 03/25/2025 at 09:47 AM EST Sign off status: Pending * Provider: Sarabjit Krishnamurthy MD Date: 0 05/13/2024 Generated for Brisa conway/Sahra/Jujuitting on: 05/26/2024 09:47 AM EST
--- OUTSIDE RECORDS SUMMARY | 2024-06-17 08:30 | XMS_ITS ---
Author Organization [facility] Address [address] [place] [address] Care Team Providers Care Practice Billing Associate Name Role Phone Timothy Granda DO Primary Care Provider Tha Chaudhry Unavailable [phone] REASON FOR VISIT NEW PATIENT Encounters Encounter Location Date Provider Diagnosis [facility] [address] [place] [address] 06/17/2024 Tha Krishnamurthy Plan Of Treatment No Information Progress Notes * Giselle ATKINSONOB:[birth year] (74 yo F)Acc No.[id number]:06/17/2024 Progress Notes Patient: Farrah SEAY Provider: Sarabjit Krishnamurthy MD :1950 A ge:73 Y S ex:Female Date:06/17/2024 [facility] Pcp:Timothy Granda DO Subjective: * Chief Complaints: * 1 . NEW PATIENT. * Medical History: Objective: * Vitals: Assessment: Plan: * Treatment: * * Electronic signature of Didier Krishnamurthy MD on 03/25/2025 at 09:48 AM EST Sign off status: Pending * Provider: Sarabjit Krishnamurthy MD Date: 0 06/17/2024 Generated for Brisa conway/Sahra/Carolannsmitting on: 05/26/2024 09:48 AM EST
--- OUTSIDE RECORDS SUMMARY | 2025-01-26 00:09 | XMS_ITS | Encounter Summary ---
Author Organization [facility] Address [address] [place] [id number] Care Team Providers Care Cover Stitch Machine Operator Name Role Phone Connor Gomez MD Primary Care Provider [phone]- [phone] Reason for Visit * Auth/Cert Specialty Diagnoses / Procedures Referred By Contac t Referred To Contact Diagnoses Seizures Possible CVA Referral ID Status Reason Start Date Expiration Date Visits Re quested Visits Authorized [id number] 1 1 Encounter Details Date Type Department Care Team (Late st Contact Info) Description 01/26/2025 1:09 AM EDT - 01/29/2025 2:01 PM EDT Hospital Encounter [facility] [address] [place] [id number] Rayshawn Baldwin MD [address] [place] [address] Andrew Barkley MD [address] [place] [address] Meli Hernandez MD [address] [id number] Jessica Valdovinos DO [address] [address] Cognitive communication deficit (Primary Dx); PRES (posterior [...] and heating? Patient unable to answer 01/26/2025 [facility] - Occupational [...] things needed for daily living? No 01/26/2025 [facility] Utilities Answer Date Recorded In the [...] Patient unable to answer 01/26/2025 Preferred Language Austrian 01/26/2025 Comments No Sex and Gender Information [...] documented in this encounter Functional Status * Malnutrition Screening Tool Question Answer Date of Assessment Author Have you recently lost weigh t without trying? If yes, how much weight have you lost? 0--> No 01/27/2025 6:20 AM EDT Minnie Castillo RN Have you been eating poorly because of a decreased appetite? 0--> No 01/27/2025 6:20 AM EDT Flora Castillo RN MST score 0 01/27/2025 6:20 AM EDT Minnie Castillo RN * Functional Mobility Question Answer Date of Assessment Author Functional Mobility- Ind. Level independent 01/28/2025 8:35 AM EDT Shabana Kim, OT Student Functional Mobility- Device walker, front-wheeled 01/26/2025 1:16 PM EDT Shelly Saleem , MALICK Functional Mobility- Comment Cues to keep RWx close to base of support and increase stride length. Martin x2 provided throughout for safety. Additional mobility limited by pt fatigue. 01/26/2025 1:16 PM EDT Shelly Saleem OT * Functional Assessment Question Answer Date of Assessment Author Outcome Measure Options AM-PAC 6 Clicks Daily Activity (OT) 01/28/2025 8:46 AM EDT Shabana Kim, OT Student * How much help from another person do you currently need... Question Answer Date of Assessment Author Turning from your back to your side while in flat bed without using bedrails? 4 01/29/2025 8:00 AM LESLEYT Marixa Valdez RN Helicopter Pilot Instructor Standing up from a chair using your arms (e.g., wheelchair, bedside chair)? 4 01/29/2025 8:00 AM Marixa Jones RN Helicopter Pilot Instructor Moving from lying on back to sitting on the side of a flat bed without bedrails? 4 01/29/2025 8:00 AM Marixa Jones RN Helicopter Pilot Instructor Moving to and from a bed to a chair (including a wheelchair)? 3 01/29/2025 8:00 AM Marixa Jones RN Helicopter Pilot Instructor To walk in hospital room? 3 01/29/2025 8:00 AM Marixa Jones RN Helicopter Pilot Instructor Climbing 3-5 steps with a railing? 3 01/29/2025 8:00 AM Marixa Jones RN Helicopter Pilot Instructor AM-PAC 6 Clicks Score (PT) 21 01/29/2025 8:00 AM Marixa Jones RN Extern Highest Level of Mobility Goal Walk 10 Steps or More-6 01/29/2025 8:00 AM Mary Jones RN Helicopter Pilot Instructor * How much help from another is currently needed... Question Answer Date of Assessment Author Putting on and taking off regular lower body clothing? 4 01/28/2025 8:46 AM Shabana Lopez, OT Student Bathing (including washing, rinsing, and drying) 3 01/28/2025 8:46 AM Shabana Lopez, OT Student Toileting (which includes using toilet bed briceno or urinal) 3 01/28/2025 8:46 AM Shabana Lopez, OT Student Putting on and taking off regular upper body clothing 4 01/28/2025 8:46 AM Shabana Lopez, OT Student Taking care of personal grooming (such as brushing teeth) 4 01/28/2025 8:46 AM Shabana Lopez, OT Student Eating meals 4 01/28/2025 8:46 AM Shabana Rao, OT Student AM-PAC 6 Clicks Score (OT) 22 01/28/2025 8:4 6 AM Shabana Lopez, OT Student * Modified Dimitry Scale Question Answer Date of Assessment Author Modified Mclean Scale 0 - No Symptoms at all. 01/28/2025 8:46 AM Mayda Lopez OT Student Pre-Stroke Modified Dimitry Scale 6 - Unable to determine (UTD) from the medical record documentation 01/28/2025 8:46 AM Shabana Lopez, OT Student * Timed Charges Question Answer Date of Assessment Author [id number] - OT Self Care/Mgmt Minutes 24 01/28/2025 8:47 AM Shabana Lopez, OT Student * Intake Question Answer Date of Assessment Author Intake (%) Lunch;25% 01/27/2025 1:30 PM EDT Lainey Zaman, SPENCER * Bed Mobility Question Answer Date of Assessment Author Assistive Device (Bed Mobility) head of bed elevated 01/28/2025 8:35 AM EDT Shabana Kim, OT Student Comment, (Bed Mobility) Cues for improve d sequencing and safety awareness. Impulsively attempting to transition to EOb prior to appropriate line management requiring frequent cues. 01/26/2025 1:31 PM EDT Dinora Huston, PT Supine-Sit [place] (Bed Mobility) modified independence 01/28/2025 8:35 AM EDT Shabana Kim, OT Student Bed Mobility supine-sit 01/28/2025 8:35 AM EDT Shabana Kim, OT Student * Transfers Question Answer Date of Assessment Author Bed-Chair [place] (Transfers) independent 01/28/2025 8:35 AM EDT Shabana Kim, OT Student Comment, (Transfers) STS from EOB w/ FWW. 2024 1:31 PM EDT Dinora Huston PT Sit-Stand [place] (Transfers) independent 01/28/2025 8:35 AM EDT Shabana Kim, OT Student Stand-Sit [place] (Transfers) independent 01/28/2025 8:35 AM EDT Shabana Kim, OT Student Transfers sit-stand transfer;stand-sit transfer;bed-chair transfer 01/28/2025 8:35 AM EDT Shabana Kim, OT Student * Stand-Sit Transfer Question Answer Date of Assessment Author Assistive Device (Stand-Sit Transfers) walker, front-wheeled 01/26/2025 1:16 PM EDT Shelly Saleem, OT * RASS (Avilez Agitation-Sedation Scale) Question Answer Date of Assessment Author RASS (Avilez Agitation-Sedation Scale) 0-->alert and calm 01/27/2025 5:54 PM EDT Lainey Zaman, SPENCER * Intellectual Performance WDL Question Answer Date of Assessment Author Level of Consciousness Alert 01/29/2025 8:00 AM EDT Mary Valdez RN Helicopter Pilot Instructor * NIH Stroke Scale Question Answer Date of Assessment Author 11. Extinction and Inattention (formerly Neglect) 2-->Profound alex-inattention/exti nction more than 1 modality 01/26/2025 2:00 AM EDT Minnie Castillo RN 5a. Motor Arm, Left 2-->Some effort against gravity, limb cannot get to or maintain (if cued) 90 (or 45) degrees, drifts down to bed, but has some effort against gravity 01/26/2025 2:00 AM EDT Minnie Castillo RN 5b. Motor Arm, Right 2-->Some effort against gravity, limb cannot get to or maintain (if cued) 90 (or 45) degrees, drifts down to bed, but has some effort against gravity 01/26/2025 2:00 AM EDT Minnie Castillo RN 6a. Motor Leg, Left 1-->Drift, leg falls by the end of the 5-sec period but does not hit bed 01/26/2025 2:00 AM EDT Minnie Castillo RN * Motor Response Question Answer Date of Assessment Author General Motor Response purposeful/movement localizing 01/29/2025 8:00 AM EDT Mary Valdez RN Helicopter Pilot Instructor Motor Response general motor response 01/29/2025 8:00 AM EDT Mary Valdez RN Helicopter Pilot Instructor * Activities of Daily Living Question Answer Date of Assessment Author BADL Assessment/Interventio n upper body dressing;lower body dressing;grooming 01/28/2025 8:35 AM EDT Shabana Kim, OT Student * Functional Status, IADL Question Answer Date of Assessment Author Meal Preparation independent 01/26/2025 12:3 1 PM EDT Shea Bonds RN Laundry independent 01/26/2025 12:31 PM EDT Shea Bonds RN Medications independent 01/26/2025 12:31 PM LESLEYT Shea Bonds RN Housekeeping independent 01/26/2025 12:31 PM Shea Stone RN Shopping independent 01/26/2025 12:31 PM EDT Shea Bonds RN If for any reason you need help with day-to-day activities such as bathing, preparing meals, shopping, managing finances, etc., do you get the help you need? Patient unable to answer 01/26/2025 12:31 PM EDT Shea Bonds RN * Gait/Stairs (Locomotion) Question Answer Date of Assessment Author Assistive Device (Gait) walker, front-wheeled 1:31 PM EDT Dinora Huston PT Comment, (Gait/Stairs) Pt demonstrating step-to gait pattern requiring cues for upright posture/forward gaze, improved weight shift, increased step length and management of AD. Limited carryover for positioning of FWW in relation to GENTRY requiring additional assistance. No overt LOB, however, assist d/t unsteadniess. Deferred further ambulation d/t fatigue. 01/26/2025 1:31 PM EDT Dinora Huston PT Deviations/Abnormal Patterns (Gait) gait speed decreased;stride length decreased;weight shifting decreased 01/26/2025 1:31 PM EDT Dinora Huston PT Patient was able to Ambulate yes 01/26/2025 1:31 PM EDT Dinora Huston PT [place] Level (Gait) nonverbal cues (demo/gesture);verbal cues;minimum assist (75% patient effort);2 person assist 01/26/2025 1:31 PM EDT Dinora Huston PT Bilateral Gait Deviations forward flexed posture;heel strike decreased 01/26/2025 1:31 PM EDT Dinora Huston PT Distance in Feet (Gait) 12 01/27/20 25 1:31 PM EDT Dinora Huston PT * Functional Screen (every 3 days/change) Question Answer Date of Assessment Author Communication 0 - understands/communicates without difficulty 01/29/2025 8:00 AM EDT Mary Valdez RN Helicopter Pilot Instructor Bathing 2 - assistive person 01/29/2025 8:00 AM E Mary Mensah RN Helicopter Pilot Instructor Eating 0 - independent 01/29/2025 8:00 AM EDT Mary Whittaker RN Helicopter Pilot Instructor Dressing 2 - assistive person 01/29/2025 8:00 AM E Mary Mensah RN Helicopter Pilot Instructor Swallowing 0 - swallows foods/l iquids without difficulty 01/29/2025 8:00 AM EDT Mary Valdez RN Helicopter Pilot Instructor Ambulation 0 - independent 01/29/2025 8:00 AM EDT Mary Whittaker RN Helicopter Pilot Instructor Toileting 0 - independent 01/29/2025 8:00 AM EDT Mary Whittaker RN Helicopter Pilot Instructor Transferring 0 - independent 01/29/2025 8:00 AM EDT Mary Whittaker RN Helicopter Pilot Instructor * Hygiene Care Question Answer Date of Assessment Author Perineal Care absorbent brief/pad changed;perineum cleansed 01/28/2025 10:14 PM EDT Ahsan Orellana PCT Hygiene Assistance per patient with min imal assistance 01/28/2025 10:14 PM EDT Ahsan Orellana PCT Bathing/Skin Care bath, complete;dressed/undress ed;electrode patches/site rotation;linen changed;moisturizer applied 01/28/2025 10:14 PM EDT Ahsan Orellana PCT * Functional Status Question Answer Date of Assessment Author Usual Activity Tolerance good 01/26/2025 12:31 PM EDT Shea Bonds RN * AUDIT-C (Alcohol Use Disorders Identification Test) Question Answer Date of Assessment Author AUDIT-C Score 0 01/27/2025 6:19 AM EDT Minnie Kenny RN Q1: How often do you have a drink containing alcohol? Never 01/27/2025 6:19 AM EDT Minnie Castillo RN Q2: How many drinks containing alcohol do you have on a typical day when you are drinking? Patient does not drink 01/27/2025 6:19 AM EDT Minnie Castillo RN Q3: How often do you have six or more drinks on one occasion? Never 01/27/2025 6:19 AM EDT Minnie Castillo RN * Home Main Entrance Question Answer Date of Assessment Author Number of Stairs, Main Entrance other (see comments) 01/26/2025 1:28 PM EDT Dinora Huston , PT * Health Management Question Answer Date of Assessment Author Symptoms/Conditions Managed at Home gastrointestinal 01/27/2025 6:20 AM EDT Minnie Castillo RN Barriers to Managing Health none 01/27/2025 6: 20 AM EDT Minnie Castillo RN * HEENT WDL Question Answer Date of Assessment Author HEENT WDL WDL 01/29/2025 8:00 AM EDT Mary Jimenez RN Helicopter Pilot Instructor Lip Symptoms dry 01/29/2025 8:00 AM EDT Mary Jimenez RN Helicopter Pilot Instructor * Disability/Function Question Answer Date of Assessment Author Hearing Difficulty or Deaf no 01/27/2025 6:22 AM EDT Minnie Castillo RN Eating/Swallowing Difficulty no 01/27/2025 6:22 AM EDT Minnie Castillo RN Difficulty Managing Errands Independently no 01/27/2025 6:22 AM EDT Minnie Castillo RN Equipment Currently Used at Home colostomy/ostomy supplies 01/27/2025 6:22 AM EDT Minnie Castillo RN Difficulty Concentrating, Remembering or Making Decisions no 01/27/2025 6:22 AM EDT Minnie Castillo RN Visual Difficulty or Blind yes 01/27/2025 6:22 AM EDT Minnie Castillo RN Change in Functional Status Since Onset of Current Illness/Injury yes 01/27/2025 6:22 AM EDT Minnie Castillo RN Communication Difficulty no 01/27/2025 6:22 AM EDT Minnie Castillo RN Dressing/Bathing Difficulty no 01/27/2025 6:22 AM LESLEYT Minnie Castillo RN Walking or Climbing Stairs Difficulty no 01/27/2025 6:22 AM EDT Minnie Castillo RN * Sit-Stand Transfer Question Answer Date of Assessment Author Assistive Device (Sit-Stand Transfers) walker, front-wheeled 01/26/2025 1:31 PM EDT Dinora Huston, PT Comment, (Sit-Stand Transfer) Cues for UE placement and improved initiation. Physical assistance d/t impaired initiation and unsteadiness. W/ return to sitting, cues for improved AD management and eccentric control. 01/26/2025 1:31 PM EDT Dinora Huston, PT * Positioning Question Answer Date of Assessment Author Body Position sitting up in bed 01/29/2025 1:00 PM EDT Joi Goldstein Positioning/Transfer Devices pillows;in use 01/29/2025 1:00 PM EDT Joi Goldstein * Don Risk Assessment Question Answer Date of Assessment Author Sensory Perception 3-->slightly limited 01/29/2025 8:0 0 AM EDT Mary Valdez RN Helicopter Pilot Instructor Friction and Shear 3-->no apparent problem 01/29/2025 8:00 AM EDT Mary Valdez RN Helicopter Pilot Instructor Moisture 3-->occasionally moist 01/29/2025 8:00 AM EDT Mary Valdez RN Helicopter Pilot Instructor Don Score 18 01/29/2025 8:00 AM EDT Mary Jimenez RN Extern Nutrition 3-->adequate 01/29/2025 8:00 AM EDT Mary Jimenez RN Helicopter Pilot Instructor Activity 3-->walks occasionally 01/29/2025 8:00 AM EDT Mary Valdez RN Extern Mobility 3-->slightly limited 01/29/2025 8:00 AM E Mary Mensah RN Helicopter Pilot Instructor * Hand Underwriting Consultant/Ankle Strength Question Answer Date of Assessment Author Plantarflexion, Right moderate 01/29/2025 8:00 AM Mary Jones RN Extern Hand Underwriting Consultant, Left moderate 01/29/2025 8:00 AM EDT Mary Whittaker RN Helicopter Pilot Instructor * Coping/Psychosocial Question Answer Date of Assessment Author Trust Relationship/Rapport care explained;choices provided;empathic listening provided;emotional support provided;questions answered;reassurance provided;questions encouraged;thoughts/feel ings acknowledged 01/29/2025 12:00 PM Mary Jones RN Helicopter Pilot Instructor * Safety Question Answer Date of Assessment Author Assembly Operator Protection tubing secured 01/29/2025 10:00 AM Mary Jones RN Helicopter Pilot Instructor Safety Factors bed in low position;call light in reach;ID band on;wheels locked;upper side rails raised x 2 01/29/2025 12:00 PM Mary Jones RN Helicopter Pilot Instructor All Alarms alarm(s) activated a nd audible 01/29/2025 1:00 PM Joi Kunz Infection Prevention environmental surveillance performed 01/29/2025 12:00 PM Mary Jones RN Helicopter Pilot Instructor Safety WDL WDL 01/29/2025 1:00 PM Joi Kunz Additional Documentation All Alarms (Row) 01/29/2025 12:00 PM EDT Mary aVldez RN Helicopter Pilot Instructor * Musculoskeletal Question Answer Date of Assessment Author Musculoskeletal WDL X;mobility 01/29/2025 8:00 AM ED T Mary Valdez RN Helicopter Pilot Instructor General Mobility generalized weakness 01/29/2025 8:00 AM EDT Mary Valdez RN Helicopter Pilot Instructor * Skin Question Answer Date of Assessment Author Skin WDL X;integrity 01/29/2025 12:00 PM EDT Mary Garcia RN Helicopter Pilot Instructor * Motor Skills Question Answer Date of Assessment Author Coordination bilateral;upper extremity;fine motor deficit;WFL 01/26/2025 1:18 PM EDT Shelly Saleem, OT * Nutrition Question Answer Date of Assessment Author [address].O. 480 01/28/2025 8:00 PM EDT Mary Mix RN Diet/Feeding Tolerance good 01/29/2025 8:00 AM EDT Mary Valdez RN Helicopter Pilot Instructor Diet/Feeding Assistance none 01/29/2025 8:00 A M EDT Mary Valdez RN Helicopter Pilot Instructor Nutrition Risk Screen no indicators present 01/29/2025 8:00 AM EDT Mary Valdez RN Helicopter Pilot Instructor Diet/Nutrition Received regular;2 gram sodium 01/30/20 8:00 AM EDT Mary Valdez RN Helicopter Pilot Instructor * Daily Care Question Answer Date of Assessment Author Activity Assistance Provided assistance, stand-by 01/29/2025 12:00 PM EDT Mary Valdez RN Helicopter Pilot Instructor * Living Environment Question Answer Date of Assessment Author Current Living Arrangements home 01/26/2025 1: 28 PM EDT Dinora Huston, PT * Suicidal Ideation (Past 1 Month) Question Answer Date of Assessment Author 1. Wish to be (Past 1 Month) No 025 6:19 AM EDT Minnie Castillo, SPENCER 2. Non-Specific Active Suici charles Thoughts (Past 1 Month) No 01/27/2025 6:19 AM EDT Minnie Castillo RN * Calculated C-SSRS Risk Score (Lifetime/Recent) Answer Date of Assessment Author No Risk Indicated 01/27/2025 6:19 AM EDT Minnie Castillo, SPENCER * Zully Simpson Fall Risk Assessment (First 24 hrs only, then right click and complete this group) Question Answer Date of Assessment Author Last Known Fall 3 01/27/2025 8:00 PM EDT Mar Pritchett RN Mobility 1 01/27/2025 8:00 PM EDT Mar Zimmerman RN Medications 2 01/27/2025 8:00 PM EDT Mar Zimmerman RN Mental Status/LOC/Awareness 0 01/27/2025 8: 00 PM EDT Mar Soriano RN Toileting Needs 0 01/27/2025 8:00 PM EDT Mar Pritchett RN Volume/Electrolyte Status 0 01/27/2025 8:00 PM EDT Mar Soriano RN Communication/Sensory 1 01/27/2025 8:00 PM EDT Mar Soriano RN Zully Simpson Fall Risk Total 15 01/27/2025 8 :00 PM EDT Mar Soriano RN * Physical Activity Question Answer Date of Assessment Author On average, how many days per week do you engage in moderate to strenuous exercise (like a brisk walk)? Patient unable to answer 01/26/2025 12:31 PM EDT Shea Bonds RN On average, how many minutes do you engage in exercise at this level? Patient unable to answer 01/26/2025 12:31 PM EDT Shea Bonds RN * Pressure Injury Screen Question Answer Date of Assessment Author Pressure Injury Present on Admission no;other (see comments) 01/27/2025 6:24 AM EDT Minnie Castillo RN * Malnutrition Screening Tool Question Answer Date of Assessment Author Have you recently lost weigh t without trying? If yes, how much weight have you lost? 0--> No 01/27/2025 6:20 AM EDT Minnie Castillo RN Have you been eating poorly because of a decreased appetite? 0--> No 01/27/2025 6:20 AM EDT Flora Castillo RN MST score 0 01/27/2025 6:20 AM EDT Minnie Castillo RN * How much help from another person do you currently need... Question Answer Date of Assessment Author Turning from your back to your side while in flat bed without using bedrails? 4 01/29/2025 8:00 AM Marixa Jones RN Helicopter Pilot Instructor Standing up from a chair using your arms (e.g., wheelchair, bedside chair)? 4 01/29/2025 8:00 AM Marixa Jones RN Helicopter Pilot Instructor Moving from lying on back to sitting on the side of a flat bed without bedrails? 4 01/29/2025 8:00 AM Marixa Jones RN Helicopter Pilot Instructor Moving to and from a bed to a chair (including a wheelchair)? 3 01/29/2025 8:00 AM Marixa Jones RN Helicopter Pilot Instructor To walk in hospital room? 3 01/29/2025 8:00 AM Marixa Jones RN Helicopter Pilot Instructor Climbing 3-5 steps with a railing? 3 01/29/2025 8:00 AM Marixa Jones RN Helicopter Pilot Instructor AM-PAC 6 Clicks Score (PT) 21 01/29/2025 8:00 AM Marixa Jones RN Helicopter Pilot Instructor Highest Level of Mobility Goal Walk 10 Steps or More-6 01/29/2025 8:00 AM Mary Jones RN Helicopter Pilot Instructor * Pulse Posterior Tibial Question Answer Date of Assessment Author Right Posterior Tibial Pulse 2+ (normal);palpation 01/27/2025 8:00 PM Mar Herman RN Left Posterior Tibial Pulse 2+ (normal);palpation 01/27/2025 8:00 PM Mar Herman RN * Discharge Needs Assessment Question Answer Date of Assessment Author Transportation Concerns none 01/26/2025 12:31 PM Shea Stone RN * Living Environment Question Answer Date of Assessment Author Name(s) of People in Home Rosalio Herman 01/26/2025 12:3 1 PM Shea Stone, software tools developer Caregiver Names Rosalio Herman 01/26/2025 12:31 P M Shea Stone, software tools developer Caregiver if Needed spouse 01/26/2025 12: 31 PM LESLEYT Shea Bonds, RN * Visual Assessment Question Answer Date of Assessment Author Visual Field Cuts none 01/29/2025 8:00 AM Mary Jones RN Helicopter Pilot Instructor Visual Tracking normal 01/29/2025 8:00 AM EDT Mary Whittaker RN Helicopter Pilot Instructor Visual Neglect none 01/29/2025 8:00 AM EDT Mary Phillips RN Helicopter Pilot Instructor * Intellectual Performance WDL Question Answer Date of Assessment Author Level of Consciousness Alert 01/29/2025 8:00 AM EDT Mary Valdez RN Helicopter Pilot Instructor * NIH Stroke Scale Question Answer Date of Assessment Author 10. Dysarthria 1-->[id number] dysarthria, patient slurs at least some words and, at worst, can be understood with some difficulty 01/26/2025 2:00 AM EDT Minnie Castillo RN 6b. Motor Leg, Right 1-->Drift, leg fall s by the end of the 5-sec period but does not hit bed 01/26/2025 2:00 AM EDT Minnie Castillo RN Total (NIH Stroke Scale) 16 01/26/2025 2:00 AM EDT Minnie Castillo RN 4. Facial Palsy 0-->Normal symmetric al movements 01/26/2025 2:00 AM EDT Minnie Castillo RN 3. Visual 0-->No visual loss 01/26/2025 2: 00 AM EDT Minnie Castillo RN 9. Best Language 2-->Severe aphasia, all communication is through fragmentary expression, great need for inference, questioning, and guessing by the listener. Range of information that can be exchanged is limited, listener carries burden of. . . (see row details) 01/26/2025 2:00 AM EDT Minnie Castillo RN 8. Sensory 0-->Normal, no senso ry loss 01/26/2025 2:00 AM EDT Minnie Castillo RN 7. Limb Ataxia 0-->Absent 01/26/2025 2:00 AM EDT Minnie Castillo RN 6a. Motor Leg, Left 1-->Drift, leg falls by the end of the 5-sec period but does not hit bed 01/26/2025 2:00 AM EDT Minnie Castillo RN * Motor Response Question Answer Date of Assessment Author General Motor Response purposeful/movement localizing 01/29/2025 8:00 AM EDT Mary Valdez RN Helicopter Pilot Instructor Motor Response general motor response 01/29/2025 8:00 AM EDT Mary Valdez RN Helicopter Pilot Instructor * Pulse Dorsalis Pedis Question Answer Date of Assessment Author Right Dorsalis Pedis Pulse 2+ (normal);palpation 01/29/2025 8:00 AM EDT Mary Valdez RN Helicopter Pilot Instructor Left Dorsalis Pedis Pulse 2+ (normal);palpation 01/29/2025 8:00 AM EDT Mary Valdez RN Helicopter Pilot Instructor * Sensory Assessment Question Answer Date of Assessment Author LLE Light Touch WNL 01/28/2025 4:00 PM EDT Rossy Talamantes RN LUE Light Touch WNL 01/28/2025 4:00 PM EDT Rossy Talamantes RN RLE Light Touch WNL 01/28/2025 4:00 PM EDT Rossy Talamantes RN Light Touch LUE;RUE;LLE;RLE 01/27/2025 10:00 PM EDT Mar Coy RN * Functional Screen (every 3 days/change) Question Answer Date of Assessment Author Communication 0 - understands/communicates without difficulty 01/29/2025 8:00 AM EDT Mary Valdez RN Helicopter Pilot Instructor Bathing 2 - assistive person 01/29/2025 8:00 AM E Mary Mensah RN Helicopter Pilot Instructor Eating 0 - independent 01/29/2025 8:00 AM EDT Mary Whittaker RN Helicopter Pilot Instructor Dressing 2 - assistive person 01/29/2025 8:00 AM E Mary Mensah RN Helicopter Pilot Instructor Swallowing 0 - swallows foods/l iquids without difficulty 01/29/2025 8:00 AM EDT Mary Valdez RN Helicopter Pilot Instructor Ambulation 0 - independent 01/29/2025 8:00 AM EDT Mary Whittaker RN Helicopter Pilot Instructor Toileting 0 - independent 01/29/2025 8:00 AM EDT Mary Whittaker RN Helicopter Pilot Instructor Transferring 0 - independent 01/29/2025 8:00 AM EDT Mary Whittaker RN Helicopter Pilot Instructor * Pulse Radial Question Answer Date of Assessment Author Right Radial Pulse 2+ (normal);palpation 01/29/2025 8: 00 AM EDT Mary Valdez RN Helicopter Pilot Instructor Left Radial Pulse 2+ (normal);palpation 01/29/2025 8:0 0 AM EDT Mary Valdez RN Helicopter Pilot Instructor * Functional Status Question Answer Date of Assessment Author Usual Activity Tolerance good 01/26/2025 12:31 PM EDT Shea Bonds RN * AUDIT-C (Alcohol Use Disorders Identification Test) Question Answer Date of Assessment Author AUDIT-C Score 0 01/27/2025 6:19 AM EDT Minnie Kenny RN Q1: How often do you have a drink containing alcohol? Never 01/27/2025 6:19 AM EDT Minnie Castillo RN Q2: How many drinks containing alcohol do you have on a typical day when you are drinking? Patient does not drink 01/27/2025 6:19 AM Minnie Velasquez RN Q3: How often do you have six or more drinks on one occasion? Never 01/27/2025 6:19 AM EDT Minnie Castillo RN * Health Management Question Answer Date of Assessment Author Symptoms/Conditions Managed at Home gastrointestinal 01/27/2025 6:20 AM Minnie Velasquez RN Barriers to Managing Health none 01/27/2025 6: 20 AM Minnie Velasquez RN * HEENT WDL Question Answer Date of Assessment Author HEENT WDL WDL 01/29/2025 8:00 AM Mary Longoria RN Helicopter Pilot Instructor Lip Symptoms dry 01/29/2025 8:00 AM Mary Longoria RN Helicopter Pilot Instructor * Disability/Function Question Answer Date of Assessment Author Hearing Difficulty or Deaf no 01/27/2025 6:22 AM Minnie Velasquez RN Eating/Swallowing Difficulty no 01/27/2025 6:22 AM Minnie Velasquez RN Difficulty Managing Errands Independently no 01/27/2025 6:22 AM Minnie Velasquez RN Equipment Currently Used at Home colostomy/ostomy supplies 01/27/2025 6:22 AM Minnie Velasquez RN Difficulty Concentrating, Remembering or Making Decisions no 01/27/2025 6:22 AM Minnie Velasquez RN Visual Difficulty or Blind yes 01/27/2025 6:22 AM EDT Minnie Castillo RN Change in Functional Status Since Onset of Current Illness/Injury yes 01/27/2025 6:22 AM EDT Minnie Castillo RN Communication Difficulty no 01/27/2025 6:22 AM EDT Minnie Castillo RN Dressing/Bathing Difficulty no 01/27/2025 6:22 AM EDT Minnie Castillo RN Walking or Climbing Stairs Difficulty no 01/27/2025 6:22 AM EDT Minnie Castillo RN * Resource/Environmental Concerns Question Answer Date of Assessment Author Resource/Environmental Concerns none 12:31 PM EDT Shea Bonds RN * Upper Extremity (Manual Muscle Testing) Question Answer Date of Assessment Author Comment, MMT: Upper Extremity BUE at least 3+/5, formal assessment limited by pt impulsivity 01/26/2025 1:18 PM EDT Shelly Saleem, OT * Hand Underwriting Consultant/Ankle Strength Question Answer Date of Assessment Author Dorsiflexion, Left moderate 01/29/2025 8:00 AM EDT Mary Valdez RN Helicopter Pilot Instructor Plantarflexion, Left moderate 01/29/2025 8:00 AM E Mary Mensah RN Helicopter Pilot Instructor Hand Underwriting Consultant, Right moderate 01/29/2025 8:00 AM EDT R Mary alexander RN Helicopter Pilot Instructor Hand Underwriting Consultant, Left moderate 01/29/2025 8:00 AM EDT Mary Whittaker RN Helicopter Pilot Instructor Dorsiflexion, Right moderate 01/29/2025 8:00 AM ED Mary Murphy RN Helicopter Pilot Instructor * Pupils Question Answer Date of Assessment Author Pupil Size Left 3 mm 01/28/2025 4:00 PM EDT Rossy Talamantes RN Pupil Reaction Right brisk 01/28/2025 4:00 PM E Rossy Funes RN Pupil Reaction Left brisk 01/28/2025 4:00 PM ED T Rossy Singh RN Pupil Accommodation Left normal response 01/29/2025 8: 00 AM EDT Mary Valdez RN Helicopter Pilot Instructor Pupil Accommodation Right normal response 01/29/2025 8 :00 AM EDT Mary Valdez RN Helicopter Pilot Instructor Pupil Shape Left round 01/29/2025 8:00 AM EDT Mary Andrea RN Helicopter Pilot Instructor Pupil PERRLA yes 01/29/2025 8:00 AM EDT Mary Jimenez RN Helicopter Pilot Instructor Pupil Shape Right round 01/29/2025 8:00 AM EDT Mary Valdez RN Helicopter Pilot Instructor Pupil Size Right 3 mm 01/28/2025 4:00 PM EDT Rossy Mcarthur RN * Genitourinary Question Answer Date of Assessment Author Voiding Characteristics frequency;urgency 01/28/2025 8 :00 PM EDT Mary Wu RN * Safety Question Answer Date of Assessment Author Assembly Operator Protection tubing secured 01/29/2025 10:00 AM EDT Mary Valdez RN Helicopter Pilot Instructor Safety Factors bed in low position;call light in reach;ID band on;wheels locked;upper side rails raised x 2 01/29/2025 12:00 PM EDT Mary Valdez RN Helicopter Pilot Instructor All Alarms alarm(s) activated a nd audible 01/29/2025 1:00 PM EDT Joi Goldstein Infection Prevention environmental surveillance performed 01/29/2025 12:00 PM EDT Mary Valdez RN Helicopter Pilot Instructor Safety WDL WDL 01/29/2025 1:00 PM EDT Joi Goldstein Additional Documentation All Alarms (Row) 01/29/2025 12:00 PM EDT Mary Valdez RN Helicopter Pilot Instructor * Musculoskeletal Question Answer Date of Assessment Author Musculoskeletal WDL X;mobility 01/29/2025 8:00 AM ED T Mary Valdez RN Helicopter Pilot Instructor General Mobility generalized weakness 01/29/2025 8:00 AM EDT Mary Valdez RN Helicopter Pilot Instructor * Cardiac Question Answer Date of Assessment Author Cardiac Rhythm apical pulse regular ;radial pulse regular 01/28/2025 8:59 AM EDT Rossy Singh RN * Skin Question Answer Date of Assessment Author Skin Integrity bruised (ecchymotic) 01/29/2025 12:00 P M EDT Mary Valdez RN Helicopter Pilot Instructor Skin WDL X;integrity 01/29/2025 12:00 PM EDT Mary Garcia RN Helicopter Pilot Instructor Skin Color/Characteristics without discoloration 01/29/2025 12:00 PM EDT Mary Valdez RN Helicopter Pilot Instructor * Nutrition Question Answer Date of Assessment Author Diet/Feeding Assistance none 01/29/2025 8:00 A M EDT Mary Valdez RN Helicopter Pilot Instructor Nutrition Risk Screen no indicators present 01/29/2025 8:00 AM EDT Mary Valdez RN Helicopter Pilot Instructor * Living Environment Question Answer Date of Assessment Author Current Living Arrangements home 01/26/2025 1: 28 PM EDT Dinora Huston, PT People in Home spouse 01/26/2025 1:28 PM EDT Dinora Kenney, PT * Cognitive Question Answer Date of Assessment Author Cognitive/Neuro/Behavio ral WDL WDL 01/29/2025 8:00 AM EDT Mary Valdez RN Helicopter Pilot Instructor Mood/Behavior calm;cooperative 01/29/2025 8:00 AM EDT Mary Valdez RN Helicopter Pilot Instructor Speech clear;spontaneous;lo gica l 01/29/2025 8:00 AM EDT Mary Valdez RN Helicopter Pilot Instructor Orientation oriented x 4 01/29/2025 8:00 AM EDT Mary Valdez RN Helicopter Pilot Instructor Arousal Level opens eyes spontaneously 025 8:00 AM EDT Mary Valdez RN Helicopter Pilot Instructor * Peripheral Neurovascular Question Answer Date of Assessment Author Pulse Assessment radial;dorsalis pedis 01/29/2025 8:00 AM EDT Mary Valdez RN Helicopter Pilot Instructor * Violence Assessment Tool Risk Indicators Question Answer Date of Assessment Author Assessment Type Initial Assessment 01/27/2025 6:24 AM EDT Minnie Castillo RN History of Violence 0 01/27/2025 6:24 AM ED T Minnie Castillo RN Confused 1 01/27/2025 6:24 AM EDT Minnie Castillo RN Irritable 1 01/27/2025 6:24 AM EDT Minnie Castillo RN Boisterous 0 01/27/2025 6:24 AM EDT Minnie Castillo RN Verbal Threats 0 01/27/2025 6:24 AM EDT Minnie Damico RN Physical Threats 0 01/27/2025 6:24 AM EDT Minnie George RN Attacking Objects 0 01/27/2025 6:24 AM EDT Minnie Castillo RN Agitated/Impulsive 1 01/27/2025 6:24 AM EDT Minnie Castillo RN Paranoid/Suspicious 0 01/27/2025 6:24 AM ED T Minnie Castillo RN Substance Intoxication/Withdrawal 0 01/27/2025 6:24 AM EDT Minnie Castillo RN Socially Inappropriate/Disruptive Behavior 0 01/27/2025 6:24 AM EDT Minnie Castillo RN Body Language 0 01/27/2025 6:24 AM EDT Minnie Kenny RN Violence Assessment Tool Total Score 3 01/27/2025 6:24 AM EDT Minnie Castillo RN * Suicidal Ideation (Past 1 Month) Question Answer Date of Assessment Author 1. Wish to be (Past 1 Month) No 025 6:19 AM EDT Minnie Castillo RN 2. Non-Specific Active Suici charles Thoughts (Past 1 Month) No 01/27/2025 6:19 AM EDT Minnie Castillo RN * Calculated C-SSRS Risk Score (Lifetime/Recent) Answer Date of Assessment Author No Risk Indicated 01/27/2025 6:19 AM EDT Minnie Castillo RN * Zully Simpson Fall Risk Assessment (First 24 hrs only, then right click and complete this group) Question Answer Date of Assessment Author Last Known Fall 3 01/27/2025 8:00 PM EDT Mar Pritchett RN Mobility 1 01/27/2025 8:00 PM EDT Mar Zimmerman RN Medications 2 01/27/2025 8:00 PM EDT Mar Zimmerman RN Mental Status/LOC/Awareness 0 01/27/2025 8: 00 PM EDT Mar Soriano RN Toileting Needs 0 01/27/2025 8:00 PM EDT Mar Pritchett RN Volume/Electrolyte Status 0 01/27/2025 8:00 PM EDT Mar Soriano RN Communication/Sensory 1 01/27/2025 8:00 PM EDT Mar Soriano RN Hester Davis Fall Risk Total 15 01/27/2025 8 :00 PM EDT Mar Soriano RN * Mental Health Question Answer Date of Assessment Author Why did the patient not complete the Depression Screen questions? Patient unable to answer 01/26/2025 12:38 PM EDT Shea Bonds RN documented as of this encounter Mental Status * Pain Question Answer Entry Date Author Sleep/Rest/Relaxation awake 01/29/2025 1:00 PM EDT Joi Goldstein * Modified Mclean Scale Question Answer Entry Date Author Pre-Stroke Modified Dimitry Scale 6 - Unable to determine (UTD) from the medical record documentation 01/28/2025 8:46 AM EDT Shabana Kim, OT Student * Bed Mobility Question Answer Entry Date Author Assistive Device (Bed Mobility) head of bed elevated 01/28/2025 8:35 AM EDT Shabana Kim, OT Student * Turpin Coma Scale Question Answer Entry Date Author Assessment Qualifiers patient not sedated/intubated 01/28/2025 8:00 PM EDT Mary Wu RN Best Eye Response 4-->(E4) spontaneous 8:00 AM EDT Mary Valdez RN Helicopter Pilot Instructor Best Verbal Response 5-->(V5) oriented 8:00 AM EDT Mary Valdez RN Helicopter Pilot Instructor Best Motor Response 6-->(M6) obeys commands 01/02 8:00 AM EDT Mary Valdez RN Helicopter Pilot Instructor Turpin Coma Scale Score 15 025 8:00 AM EDT Mary Valdez RN Helicopter Pilot Instructor * RASS (Avilez Agitation-Sedation Scale) Question Answer Entry Date Author RASS (Avilez Agitation-Sedation Scale) 0-->alert and calm 01/27/2025 5:54 PM EDT Lainey Zaman RN * Visual Assessment Question Answer Entry Date Author Visual Field Cuts none 01/29/2025 8:00 AM EDT Mary Valdez RN Helicopter Pilot Instructor Visual Tracking normal 01/29/2025 8:00 AM EDT Mary Whittaker RN Helicopter Pilot Instructor Visual Neglect none 01/29/2025 8:00 AM EDT Mary Phillips RN Helicopter Pilot Instructor * Intellectual Performance WDL Question Answer Entry Date Author Level of Consciousness Alert 01/29/2025 8:00 AM EDT Mary Valdez RN Helicopter Pilot Instructor * NIH Stroke Scale Question Answer Entry Date Author 1b. LOC Questions 2-->Answers neither question correctly 01/26/2025 2:00 AM EDT Minnie Castillo RN 2. Best Gaze 0-->Normal 01/26/2025 2:00 AM EDT Minnie Castillo RN 1c. LOC Commands 2-->Performs neither task correctly 01/26/2025 2:00 AM EDT Minnie Castillo RN 11. Extinction and Inattention (formerly Neglect) 2-->Profound alex-inattention/extincti on more than 1 modality 01/26/2025 2:00 AM EDT Minnie Castillo RN 1a. Level of Consciousness 1-->Not alert, but arousable by minor stimulation to obey, answer, or respond 01/26/2025 2:00 AM EDT Minnie Castillo RN Total (NIH Stroke Scale) 16 2:00 AM EDT Minnie Castillo RN 4. Facial Palsy 0-->Normal symmetric al movements 01/26/2025 2:00 AM EDT Minnie Castillo RN 5a. Motor Arm, Left 2-->Some effort agai nst gravity, limb cannot get to or maintain (if cued) 90 (or 45) degrees, drifts down to bed, but has some effort against gravity 01/26/2025 2:00 AM EDT Minnie Castillo RN 3. Visual 0-->No visual loss 01/26/2025 2: 00 AM EDT Minnie Castillo RN 5b. Motor Arm, Right 2-->Some effort aga inst gravity, limb cannot get to or maintain (if cued) 90 (or 45) degrees, drifts down to bed, but has some effort against gravity 01/26/2025 2:00 AM EDT Minnie Castillo RN 9. Best Language 2-->Severe aphasia, all communication is through fragmentary expression, great need for inference, questioning, and guessing by the listener. Range of information that can be exchanged is limited, listener carries burden of. . . (see row details) 01/26/2025 2:00 AM EDT Minnie Castillo RN 8. Sensory 0-->Normal, no senso ry loss 01/26/2025 2:00 AM EDT Minnie Castillo RN 7. Limb Ataxia 0-->Absent 01/26/2025 2:00 AM EDT Minnie Castillo RN 6a. Motor Leg, Left 1-->Drift, leg falls by the end of the 5-sec period but does not hit bed 01/26/2025 2:00 AM EDT Minnie Castillo RN * Motor Response Question Answer Entry Date Author General Motor Response purposeful/moveme nt localizing 01/29/2025 8:00 AM EDT Mary Valdez RN Helicopter Pilot Instructor Motor Response general motor response 8:00 AM EDT Mary Valdez RN Helicopter Pilot Instructor * Sensory Assessment Question Answer Entry Date Author LLE Light Touch WNL 01/28/2025 4:00 PM EDT Rossy Talamantes RN LUE Light Touch WNL 01/28/2025 4:00 PM EDT Rossy Talamantes RN RLE Light Touch WNL 01/28/2025 4:00 PM EDT Rossy Talamantes RN RUE Light Touch WNL 01/28/2025 4:00 PM EDT Rossy Talamantes RN Light Touch LUE;RUE;LLE;RLE 01/27/2025 10:00 PM EDT Mar Coy RN * HEENT WDL Question Answer Entry Date Author HEENT WDL WDL 01/29/2025 8:00 AM EDT Mary Jimenez RN Helicopter Pilot Instructor * Disability/Function Question Answer Entry Date Author Difficulty Concentrating, Re membering or Making Decisions no 01/27/2025 6:22 AM EDT Minnie Castillo RN * Hand Underwriting Consultant/Ankle Strength Question Answer Entry Date Author Plantarflexion, Right moderate 01/29/2025 8:00 AM EDT Mary Valdez RN Helicopter Pilot Instructor Dorsiflexion, Left moderate 01/29/2025 8:00 AM EDT Mary Valdez RN Helicopter Pilot Instructor Plantarflexion, Left moderate 01/29/2025 8:00 AM E DT Mary Valdez RN Helicopter Pilot Instructor Hand Underwriting Consultant, Right moderate 01/29/2025 8:00 AM EDT R Mary alexander RN Helicopter Pilot Instructor Hand Underwriting Consultant, Left moderate 01/29/2025 8:00 AM EDT Mary Whittaker RN Helicopter Pilot Instructor Dorsiflexion, Right moderate 01/29/2025 8:00 AM ED T Mary Valdez RN Helicopter Pilot Instructor * Pupils Question Answer Entry Date Author Pupil Size Left 3 mm 01/28/2025 4:00 PM EDT Rossy Singh RN Pupil Reaction Right brisk 01/28/2025 4:00 PM EDT Rossy Singh RN Pupil Reaction Left brisk 01/28/2025 4 :00 PM EDT Rossy Singh RN Pupil Accommodation Left normal response 025 8:00 AM EDT Mary Valdez RN Helicopter Pilot Instructor Pupil Accommodation Right normal response 2024 8:00 AM EDT Mary Valdez RN Helicopter Pilot Instructor Pupil Shape Left round 01/29/2025 8:00 AM EDT Mary Valdez RN Helicopter Pilot Instructor Pupil PERRLA yes 01/29/2025 8:00 AM EDT Mary Valdez RN Helicopter Pilot Instructor Pupil Shape Right round 01/29/2025 8:0 0 AM EDT Mary Valdez RN Helicopter Pilot Instructor Pupil Size Right 3 mm 01/28/2025 4:00 PM EDT Rossy Singh RN * Coping/Psychosocial Question Answer Entry Date Author Involvement in Care not present at bedside 01/29 12:00 PM LESLEYT Mary Valdez RN Helicopter Pilot Instructor Family/Support Persons family 12:00 PM LESLEYT Mary Valdez RN Helicopter Pilot Instructor Verbalized Emotional State acceptance 01/29/2025 12:00 PM LESLEYT Mary Valdez RN Helicopter Pilot Instructor Trust Relationship/Rapport care explained;choices provided;empathic listening provided;emotional support provided;questions answered;reassurance provided;questions encouraged;thoughts/feeli ngs acknowledged 01/29/2025 12:00 PM LESLEYT Mary Valdez RN Helicopter Pilot Instructor Diversional Activities television 12:00 PM EDT Mary Valdez RN Helicopter Pilot Instructor Family/Support System Care self-care encouraged;support provided 01/29/2025 12:00 PM EDT Mary Valdez RN Helicopter Pilot Instructor Observed Emotional State calm;cooperative 2024 12:00 PM EDT Mary Valdez RN Helicopter Pilot Instructor * Cardiac Question Answer Entry Date Author Cardiac Rhythm apical pulse regular ;radial pulse regular 01/28/2025 8:59 AM EDT Rossy Singh RN * Motor Skills Question Answer Entry Date Author Coordination bilateral;upper extremity;fine motor deficit;WFL 01/26/2025 1:18 PM EDT Shelly Saleem, OT * Neuro Question Answer Entry Date Author Memory Deficit short-term loss;forgetful 01/27/2025 5: 54 PM EDT Lainey Zaman RN * Cognitive Question Answer Entry Date Author Cognitive/Neuro/Behavior al WDL WDL 01/29/2025 8:00 AM EDT Mary Valdez RN Helicopter Pilot Instructor Mood/Behavior calm;cooperative 01/29/2025 8:00 AM EDT Mary Valdez RN Helicopter Pilot Instructor Speech clear;spontaneous;logical 2024 8:00 AM EDT Mary Valdez RN Helicopter Pilot Instructor Orientation oriented x 4 01/29/2025 8:00 AM EDT Mary Valdez RN Helicopter Pilot Instructor Arousal Level opens eyes spontaneously 025 8:00 AM EDT Mary Valdez RN Helicopter Pilot Instructor * Pain/Comfort/Sleep Question Answer Entry Date Author POSS (Pasero Opioid-Induced Sed Scale) S - Sleep, easy to arouse 01/29/2025 6:00 AM EDT Mary Wu RN * Peripheral Neurovascular Question Answer Entry Date Author Pulse Assessment radial;dorsalis pedis 01/29/2025 8:00 AM EDT Mary Valdez RN Helicopter Pilot Instructor * C= Choice of Analgesia and Sedation Question Answer Entry Date Author Target Arousal Level RASS 0 to -2 01/26/2025 1:15 AM Maru Jimenez, SUPERVISOR DOG LICENSE OFFICER * Violence Assessment Tool Risk Indicators Question Answer Entry Date Author Assessment Type Initial Assessment 01/27/2025 6: 24 AM EDT Minnie Castillo RN History of Violence 0 01/27/2025 6 :24 AM EDT Minnie Castillo RN Confused 1 01/27/2025 6:24 AM EDT Minnie Castillo RN Irritable 1 01/27/2025 6:24 AM EDT Minnie Castillo RN Boisterous 0 01/27/2025 6:24 AM EDT Minnie Castillo RN Verbal Threats 0 01/27/2025 6:24 AM EDT Minnie Castillo RN Physical Threats 0 01/27/2025 6:24 AM EDT Minnie Castillo RN Attacking Objects 0 01/27/2025 6:2 4 AM EDT Minnie Castillo RN Agitated/Impulsive 1 01/27/2025 6: 24 AM EDT Minnie Castillo RN Paranoid/Suspicious 0 01/27/2025 6 :24 AM EDT Minnie Castillo RN Substance Intoxication/Withdrawal 0 01/27/2025 6:24 AM EDT Minnie Castillo RN Socially Inappropriate/Disruptive Behavior 0 01/27/2025 6:24 AM EDT Minnie Castillo RN Body Language 0 01/27/2025 6:24 AM EDT Minnie Castillo RN Violence Assessment Tool Total Score 3 01/27/2025 6:24 AM EDT Minnie Castillo RN * Mental Health Question Answer Entry Date Author Why did the patient not complete the Depression Screen questions? Patient unable to answer 01/26/2025 12:38 PM EDT Shea Bonds RN documented in this encounter Discharge Summaries * Jessica Valdovinos, DO - 01/29/2025 7:20 AM EDT Images from the original note were not included. [facility] DISCHARGE SUMMARY Patient Name: Farrah [...] paroxysmal A-fib recurrentUTIs who was transferred from [facility] on 01/26 to ICU. Per chart review, the patient was found by her shortly after crushing and snorting pain pills. She was obtunded, treated with Narcan but subsequently experienced seizure-like event and was treated with Ativan. At OSH, she had CT head that showed possible subarachnoid hemorrhage versus artifact. There was also concern for meningitis and she underwent LP. At [facility], MRI of brain revealed motion artifact but [...] -- -- -- -- 1.430 Lab 01/26/25 0209 TOTAL PROTEIN 6.9 ALBUMIN 4.0 GLOBULIN 2.9 [...] Date/Time Blood Culture - Blood, Arm, Right [[id number]] (Normal) Collected: 01/25/25 1405 Lab Status: Preliminary result Specimen: Blood from Arm, Right Updated: 01/29/25314 Blood Culture No growth at 3 days Blood Culture - Blood, Blood, Port [[id number]] (Normal) Collected: 01/25/25 1400 Lab Status: Preliminary [...] MD 01/27/2025 2:05 AM EDT Workstation ID: [id number] Result Date: 01/26/2025 Reason for referral: [...] present This report is transcribed using the [employer] dictation system. MRI Brain Without Contrast Result [...] MD 01/26/2025 1:54 AM EDT Workstation ID: [id number] CT Angiogram Head w AI Analysis of [...] MD 01/26/2025 1:54 AM EDT Workstation ID: [id number] CT Head Without Contrast Result Date: 01/26/2025 [...] MD 01/26/2025 1:46 AM EDT Workstation ID: [id number] Results for orders placed during the hospital [...] as: SYNTHROID, LEVOTHROID 25 mcg, Oral, Every Tooling Specialist oxyCODONE 5 MG capsule Commonly known as: OXY-IR 5 mg, Oral, Every 4 Hours PRN tiZANidine 4 MG tablet Commonly known as: ZANAFLEX 4 mg, Oral, Every 8 Hours PRN tretinoin 0.05 % cream Commonly known as: RETIN-A 1 Application, Topical, Nightly tretinoin 10 MG chemo capsule Commonly known as: VESANOID Oral, 2 Times Daily vitamin D 1.25 MG (14670 UT) capsule capsule Commonly known as: ERGOCALCIFEROL [...] minutes on this discharge activity which included: [id number] with the patient, reviewing the data in the system, coordination of the care with the nursing staff as well as consultants, documentation, and entering orders. * Shabana Kim, OT Student - 01/28/2025 8:12 AM EDT Images from the original note were not included. Acute Care - Occupational Therapy Discharge [facility] Patient Name: Farrah Atkinson : 1950 Today's Date: 01/28/2025 Admit Date: 01/26/2025 Visit Dx: ICD-10-CM ICD-9-CM 1. 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 Lighting Adviser [address] Connor Jose ([facility], [place], [place]), advised stringent lifelong avoidance of all [...] RIGHT; Surgeon: Bautista Luis MD; Location: [facility]; Service: Orthopedics TUBAL ABDOMINAL LIGATION 1989 General Information Row Name 01/28/25832 OT Time and Intention Subjective Information no complaints (P) -BT Document Type therapy note (daily note) (P) -BT Mode of Treatment individual therapy;occupational therapy (P) -BT Row Name 01/28/25 08 General Information Existing Precautions/Restrictions fall (P) -BT [...] Mobility Bed Mobility supine-sit (P) -BT Supine-Sit [place] (Bed Mobility) modified independence (P) -BT Assistive Device (Bed Mobility) head of bed elevated (P) -BT Row Name 01/28/25834 Transfers Transfers sit-stand transfer;stand-sit transfer;bed-chair transfer (P) -BT Row Name 01/28/25 08 Bed-Chair Transfer Bed-Chair [place] (Transfers) independent (P) -BT Row Name 01/28/25 0835 Sit-Stand Transfer Sit-Stand [place] (Transfers) independent (P) -BT Row Name 01/28/25 08 Stand-Sit Transfer Stand-Sit [place] (Transfers) independent (P) -BT Row Name 01/28/25 08 Functional Mobility Functional Mobility- Ind. Level independent (P) -BT Functional Mobility-Distance (Feet) -- (P) HH distance -BT Row Name 01/28/25 08 Activities of Daily Living BADL Assessment/Intervention upper body dressing;lower body dressing;grooming (P) -BT Row Name 01/28/25834 Hygiene Care Oral Care teeth brushed - regular toothbrush (P) -BT Row Name 01/28/25834 Upper Body Dressing Assessment/Training [place] Level (Upper Body Dressing) don;doff;front opening garment;standby assist (P) -BT Position (Upper Body Dressing) edge of bed sitting (P) -BT Row Name 01/28/25834 Lower Body Dressing Assessment/Training [place] Level (Lower Body Dressing) don;doff;socks;independent (P) figure 4 -BT Position (Lower Body Dressing) edge of bed sitting (P) -BT Row Name 01/28/25834 Grooming Assessment/Training [place] Level (Grooming) oral care regimen;wash face, hands;set up (P) -BT Position (Grooming) sink side;unsupported standing (P) -BT User Thompson (r) = Recorded By, (t) = Taken By, (c) = Cosigned By Initials Name Provider Type BT Shabana Kim, OT Student OT Student Obj/Interventions Row Name 01/28/25838 Balance Balance Assessment sitting static balance;sitting dynamic [...] OT Student OT Student Goals/Plan Row Name 01/28/2512 Dressing Goal 1 (OT) Activity/Device (Dressing Goal 1, OT) upper body dressing;lower body dressing (P) -BT [place]/Cues Needed (Dressing Goal 1, OT) standby assist (P) -BT Time Frame (Dressing Goal 1, OT) short term goal (STG);5 days (P) -BT Progress/Outcome (Dressing Goal 1, OT) goal met (P) -BT Row Name 10/29/25 0845 Grooming Goal 1 (OT) Activity/Device (Grooming Goal 1, OT) hair care;oral care;wash face, hands (P) -BT [place] (Grooming Goal 1, OT) standby assist (P) -BT Time Frame (Grooming Goal 1, OT) fpc goal (LTG);10 days (P) -BT Strategies/Barriers (Grooming [...] Patient Position Supine (P) -BT Row Name 01/28/25 0840 Positioning and Restraints Pre-Treatment Position in bed (P) -BT Post Treatment Position bed (P) -BT In Bed supine;call light within reach;encouraged to call for assist;exit alarm on (P) -BT User Thompson (r) = Recorded By, (t) = Taken By, (c) = Cosigned By Initials Name Provider Type BT Shabana Kim, OT Student OT Student Outcome Measures Row Name 01/28/25 0846 How much help from another is currently [...] 22 (P) -BT Row Name 01/28/25845 Modified Mclean Scale Pre-Stroke Modified Mclean Scale 6 - Unable to determine (UTD) from the medical record documentation (P) -BT Modified Mclean Scale 0 - No Symptoms at all. (P) -BT Row Name 01/28/25845 Functional Assessment Outcome Measure Options AM-PAC 6 Clicks Daily Activity (OT) (P) -BT User Thompson (r) = Recorded By, (t) = Taken By, (c) = Cosigned By Initials Name Provider Type BT Shabana Kim, OT Student OT Student Occupational Therapy Education Title: PT OT TEST ENGINEER NUCLEAR EQUIPMENT Therapies (In Progress) Topic: Occupational Therapy (In Progress) Point: ADL training (Done) Learning Progress Summary Patient Acceptance, E, VU by BT at 01/28/2025845 Acceptance, TB,E, NR by at 01/26/2025 1144 Point: Precautions (Done) Learning Progress Summary Patient Acceptance, E, VU by BT at 01/28/2025845 Acceptance, TB,E, NR by at 01/26/2025 1144 Point: Body mechanics (Done) Learning Progress Summary Patient Acceptance, E, VU by BT at 01/28/202546 Acceptance, TB,E, NR by at 01/26/2025 1144 User Thompson Initials Effective Dates Name Provider Type Discipline 11/08/22 - Shelly Saleem, OT Occupational Therapist [...] Time Calculation: Time Calculation- OT Row Name 01/28/25 0847 Time Calculation- OT OT Start Time 0812 (P) -BT OT Received On 01/28/25 (P) -BT Timed Charges 60219 - OT Self Care/Mgmt Minutes 24 (P) -BT Total Minutes Timed Charges Total Minutes 24 (P) -BT Total Minutes 24 (P) -BT User Thompson (r) = Recorded By, (t) = Taken By, (c) = Cosigned By Initials Name Provider Type BT Shabana Kim, OT Student OT Student Therapy Charges for Today Code Description Service Date Service Provider Modifiers Qty [id number] HC OT SELF CARE/MGMT/TRAIN EA 15 MIN [...] sent through Care Everywhere. * Levetiracetam Tablets (Austrian) * Toxic Metabolic Encephalopathy (Austrian) * Managing Your Hypertension (Austrian) documented in this encounter Medications at Time [...] Every 12 (Twelve) Hours. 60 tablet 5 dicyclomine (BENTYL) 10 MG capsule Take 1 [...] Every 12 (Twelve) Hours. 60 tablet 5 levothyroxine (SYNTHROID, LEVOTHROID) 25 MCG tablet Take 1 tablet by mouth Every Morning. losartan (COZAAR) 50 MG tablet Take 2 tablets by mouth Daily. 60 tablet 5 oxyCODONE (OXY-IR) 5 MG capsule Take 1 [...] a Day. vitamin D (ERGOCALCIFEROL) 1.25 MG (26748 UT) capsule capsule Take 1 capsule by [...] resulted in removal iof 13 precancerous polyps. Lighting Adviser Dr Connor Jose (retired, [place], [place]), advised stringent lifelong avoidance of all [...] and R hip. R total hip scheduled 1/13/23. L knee to follow. Wears reading eyeglasses [...] from the original note were not included. [facility] Medicine Services PROGRESS NOTE Patient Name: Farrah [...] -- -- 22* 23* Lab 01/27/25 1845 01/27/25 0454 01/26/25 0651 01/26/25 0209 SODIUM -- 141 [...] -- TSH -- -- -- 1.430 Lab 01/26/25208 TOTAL PROTEIN 6.9 ALBUMIN 4.0 GLOBULIN 2.9 ALT (SGPT) 19 AST (SGOT) 30 BILIRUBIN 0.4 ALK PHOS 120* LIPASE 20 Lab 01/26/25 0328 01/26/259 HSTROP T 22* 23* PROTIME -- 13.9 [...] MD 01/27/2025 2:05 AM EDT Workstation ID: [id number] Results for orders placed during the hospital [...] paroxysmal A-fib recurrentUTIs who was transferred from [facility] on 01/26 to ICU. Per chart review, the patient was found by her shortly after crushing and snorting pain pills. She was obtunded, treated with Narcan but subsequently experienced seizure-like event and was treated with Ativan. At OSH, she had CT head that showed possible subarachnoid hemorrhage versus artifact. There was also concern for meningitis and she underwent LP. At [facility], MRI of brain revealed motion artifact but [...] AM-PAC 6 Clicks Score (PT): 18 (01/28/25 0804) CODE STATUS: Code Status and Medical Interventions: [...] tract infections (UTIs). [facility]. She was found at home [...] patient snorts pain pills. History taken from: PMH//Social History were reviewed and updated appropriately in the electronic medical record. Review of Systems: Review of 14 systems was completed with positives and pertinent negatives noted in the subjective section. All other systems reviewed and are negative. Objective Vital Signs Temp: [96.8 ??F (36 ??C)-98.4 ??F (36.9 ??C)] 98.2 ??F (36.8 ??C) Heart Rate: [73-113] 82 Resp: [15-18] 17 BP: (101-195)/(53-106) 182/90 01/26 07 - 01/27 07 In: 2668.7 [P.O.:503; I.V.:1815.7] Out: 1780 [Urine:1180] [...] from last 7 days Lab Units 01/27/2545301/26/25 020 WBC 10*3/mm3 9.35 18.88* HEMOGLOBIN g/dL 10.2* [...] No driving for 3 months due to [facility]. Okay to telemetry/hospitalist. Electronically signed by: Andrew Barkley MD 01/27/25 17:34 EDT Patient or patient financial sales representative verbalized consent for the use [...] resulted in removal iof 13 precancerous polyps. Lighting Adviser Dr Connor Jose (retired, [place], [place]), advised stringent lifelong avoidance of all [...] last 7 days Lab Units 01/27/25 0454 WBC 10*3/mm3 9.35 HEMOGLOBIN g/dL 10.2* HEMATOCRIT [...] Value Units Date/Time MRI Brain With Contrast [[id number]] Collected: 01/27/25199 Updated: 01/27/25207 Narrative: MRI BRAIN [...] MD 01/27/2025 2:05 AM EDT Workstation ID: [id number] Assessment: PRES. Solitary seizure Accelerated hypertension Plan: Continue Keppra 500 mg 3 times daily. Outpatient follow-up [facility] in 3 months. No driving or [...] to the ICU as a transfer from [facility] due to concerns for subarachnoid hemorrhage. Reportedly [...] resulted in removal iof 13 precancerous polyps. Lighting Adviser Dr Connor Jose (retired, [place], [place]), advised stringent lifelong avoidance of all [...] RIGHT; Surgeon: Bautista Luis MD; Location: [facility]; Service: Orthopedics TUBAL ABDOMINAL LIGATION 1989 Allergies [...] Order(s): IP CONSULT TO INFECTIOUS DISEASES Farrah Howeehsan 1950 [id number] Date of Consult: 01/26/2025 Date of Admission: [...] resulted in removal iof 13 precancerous polyps. Lighting Adviser Dr Connor Jose (retired, [place], [place]), advised stringent lifelong avoidance of all [...] Surgeon: Bautista Luis MD; Location: [facility]; Service: Orthopedics TUBAL ABDOMINAL [...] mg 2 mg Intravenous Once Maru Martinez APRN mupirocin (BACTROBAN) 2 % nasal ointment 1 Application 1 Application Each Nare BID Maru Martinez APRN 1 Application at 01/26/25 0246 sodium chloride 0.9 % flush 10 mL 10 mL Intravenous Q12H Maru Martinez APRN 10 mL at 01/26/25 0945 sodium chloride 0.9 % flush 10 mL 10 mL Intravenous PRN Maru Martinez APRN sodium chloride 0.9 % flush 10 mL [...] infusion 40 mL 40 mL Intravenous PRN Blamer, Maru R, SUPERVISOR DOG LICENSE OFFICER sodium chloride 0.9 % infusion 40 mL [...] or edema : Normal appearing genitalia without Torres catheter. MSK: FROM without joint effusions noted [...] Value Units Date/Time MRI Brain Without Contrast [[id number]] Collected: 01/26/25615 Updated: 01/26/25639 Narrative: MRI BRAIN [...] EDT Workstation ID: [id number] CT Outside Head [[id number]] Resulted: 01/26/25238 Updated: 01/26/25238 Narrative: This procedure was auto-finalized with no dictation required. CT Outside Spine [[id number]] Resulted: 01/26/25238 Updated: 01/26/25238 Narrative: This procedure was auto-finalized with no dictation required. CT Outside Spine [[id number]] Resulted: 01/26/25238 Updated: 01/26/25238 Narrative: This procedure was auto-finalized with no dictation required. CT Outside Spine [[id number]] Resulted: 01/26/25237 Updated: 01/26/25237 Narrative: This procedure was auto-finalized with no dictation required. CT Outside Abd/Pelvis [[id number]] Resulted: 01/26/25237 Updated: 01/26/25237 Narrative: This procedure was auto-finalized with no dictation required. CT Outside Abd/Pelvis [[id number]] Resulted: 01/26/25236 Updated: 01/26/25236 Narrative: This procedure was auto-finalized with no dictation required. CT Outside Chest [[id number]] Resulted: 01/26/25236 Updated: 01/26/25236 Narrative: This procedure was auto-finalized with no dictation required. CT Angiogram Neck [[id number]] Collected: 01/26/25147 Updated: 01/26/25156 Narrative: CT ANGIOGRAM [...] MD 01/26/2025 1:54 AM EDT Workstation ID: [id number] CT Angiogram Head w AI Analysis of LVO [[id number]] Collected: 01/26/25147 Updated: 01/26/25156 Narrative: CT ANGIOGRAM [...] MD 01/26/2025 1:54 AM EDT Workstation ID: [id number] CT Head Without Contrast [[id number]] Collected: 01/26/25144 Updated: 01/26/25148 Narrative: CT HEAD [...] MD 01/26/2025 1:46 AM EDT Workstation ID: [id number] PROBLEM LIST: PRES ( Posterior Reversible Encephalopathy [...] included. Neurology Referring provider: Provider, [place] [address] Reason for Consultation: Altered mental state Chief [...] a Day. vitamin D (ERGOCALCIFEROL) 1.25 MG (20418 UT) capsule capsule Take 1 capsule by [...] resulted in removal iof 13 precancerous polyps. Lighting Adviser Dr Connor Jose (retired, [place], [place]), advised stringent lifelong avoidance of all [...] Surgeon: Bautista Luis MD; Location: [facility]; Service: Orthopedics TUBAL ABDOMINAL LIGATION 1989 , [...] awake and alert. She is oriented to [facility] but cannot tell me how old [...] Component Value Units Date/Time POC Glucose Once [[id number]] Collected: 01/26/25 1219 Specimen: Blood Updated: 01/26/25 1222 Glucose 98 mg/dL Comment: Serial Number: [id number]: [id number] Nova Comment 1 Follow unit protocol STAT Lactic Acid, Reflex [[id number]] (Normal) Collected: 01/26/25 1044 Specimen: Blood Updated: 01/26/25 1133 Lactate 1.9 mmol/L Comment: Falsely depressed results may occur on samples drawn from patients receiving N-Acetylcysteine (NAC) or Metamizole. Hemoglobin A1c [[id number]] (Abnormal) Collected: 01/26/25650 Specimen: Blood from Arm, Right Updated: 01/26/25 0856 Hemoglobin A1C 5.67 % Narrative: Hemoglobin A1C Ranges: Increased Risk for Diabetes 5.7% to 6.4% Diabetes >= 6.5% Diabetic Goal < 7.0% Vancomycin, Random [[id number]] (Abnormal) Collected: 01/26/25650 Specimen: Blood from Arm, Right Updated: 01/26/25 0753 Vancomycin Random 42.10 mcg/mL Narrative: Therapeutic Ranges for Vancomycin Vancomycin Random 5.0-40.0 mcg/mL Vancomycin Trough 5.0-20.0 mcg/mL Vancomycin Peak 20.0-40.0 mcg/mL STAT Lactic Acid, Reflex [[id number]] (Abnormal) Collected: 01/26/25650 Specimen: Blood from Arm, Right Updated: 01/26/25 0724 Lactate 2.2 mmol/L Comment: Falsely depressed results may occur on samples drawn from patients receiving N-Acetylcysteine (NAC) or Metamizole. POC Glucose Once [[id number]] (Abnormal) Collected: 01/26/25 0520 Specimen: Blood Updated: 01/26/25 0523 Glucose 134 mg/dL Comment: Serial Number: [id number]: [id number] POC Glucose Once [[id number]] (Abnormal) Collected: 01/26/25 0238 Specimen: Blood Updated: 01/26/25 0506 Glucose 150 mg/dL Comment: Serial Number: [id number]: [id number] High Sensitivity Troponin T 1Hr [[id number]] (Abnormal) Collected: 01/26/25 0328 Specimen: Blood Updated: [...] condition. Fentanyl, Urine - Indwelling Urethral Catheter [[id number]] (Normal) Collected: 01/26/25256 Specimen: Urine from Indwelling [...] Urine Drug Screen - Indwelling Urethral Catheter [[id number]] (Abnormal) Collected: 01/26/25256 Specimen: Urine from Indwelling [...] Indicated (No Culture) - Indwelling Urethral Catheter [[id number]] (Abnormal) Collected: 01/26/25256 Specimen: Urine from Indwelling Urethral Catheter Updated: 01/26/25324 Color, UA Yellow Appearance, UA Clear pH, UA 5.5 Specific [place], UA >1.030 Glucose, UA Negative Ketones, UA Negative Bilirubin, UA Negative Blood, UA Moderate (2+) Protein, UA Trace Leuk Esterase, UA Small (1+) Nitrite, UA Negative Urobilinogen, UA 0.2 E.U./dL Urinalysis, Microscopic Only - Indwelling Urethral Catheter [[id number]] (Abnormal) Collected: 01/26/25256 Specimen: Urine from Indwelling Urethral Catheter Updated: 01/26/25324 RBC, UA 6-10 /HPF WBC, UA 11-20 /HPF Bacteria, UA None Seen /HPF Squamous Epithelial Cells, UA 0-2 /HPF Hyaline Casts, UA None Seen /LPF Methodology Automated Microscopy Blood Culture - Blood, Blood, Port [[id number]] Collected: 01/25/25 1400 Specimen: Blood, Port Updated: 01/26/25 0310 Blood Culture - Blood, Arm, Right [[id number]] Collected: 01/25/25 1405 Specimen: Blood from Arm, Right Updated: 01/26/25308 aPTT [[id number]] (Normal) Collected: 01/26/25208 Specimen: Blood Updated: 01/26/25255 PTT 26.2 seconds Narrative: PTT = The equivalent PTT values for the therapeutic range of heparin levels at 0.3 to 0.5 U/ml are 60 to 70 seconds. Protime-INR [[id number]] (Normal) Collected: 01/26/25208 Specimen: Blood Updated: 01/26/25255 Protime 13.9 Seconds INR 1.01 CK [[id number]] (Abnormal) Collected: 01/26/25208 Specimen: Blood Updated: 01/26/25249 Creatine Kinase 206 U/L Lipase [[id number]] (Normal) Collected: 01/26/25208 Specimen: Blood Updated: 01/26/25249 Lipase 20 U/L Lipid Panel [[id number]] (Abnormal) Collected: 01/26/25208 Specimen: Blood Updated: 01/26/25249 [...] calculated using the NIH LDL-C calculation. Magnesium [[id number]] (Normal) Collected: 01/26/25208 Specimen: Blood Updated: 01/26/25249 Magnesium 2.1 mg/dL Procalcitonin [[id number]] (Normal) Collected: 01/26/25208 Specimen: Blood Updated: 01/26/25249 [...] Day 4 values are available. Refer to http://www.puvebh-gkn-cemejwhfwa.com Change in PCT <=80% A decrease of [...] or septic shock. High Sensitivity Troponin T [[id number]] (Abnormal) Collected: 01/26/25208 Specimen: Blood Updated: 01/26/25249 [...] TSH Rfx On Abnormal To Free T4 [[id number]] (Normal) Collected: 01/26/25208 Specimen: Blood Updated: 01/26/25249 TSH 1.430 uIU/mL Comprehensive Metabolic Panel [[id number]] (Abnormal) Collected: 01/26/25208 Specimen: Blood Updated: 01/26/25249 [...] not include race as a factor Phosphorus [[id number]] (Normal) Collected: 01/26/25208 Specimen: Blood Updated: 01/26/25249 Phosphorus 3.6 mg/dL CBC & Differential [[id number]] (Abnormal) Collected: 01/26/25208 Specimen: Blood Updated: 01/26/25247 Narrative: The following orders were created for panel order CBC & Differential. Procedure Abnormality Status --------- ------ Manual Differential[[id number]] Abnormal Final result CBC Auto Differential[[id number]] Abnormal Final result Please view results for these tests on the individual orders. Manual Differential [[id number]] (Abnormal) Collected: 01/26/25208 Specimen: Blood Updated: 01/26/25247 [...] Normal Platelet Morphology Normal CBC Auto Differential [[id number]] (Abnormal) Collected: 01/26/25208 Specimen: Blood Updated: 01/26/25247 WBC 18.88 10*3/mm3 RBC 3.98 10*6/mm3 Hemoglobin 11.6 g/dL Hematocrit 35.6 % MCV 89.4 fL MCH 29.1 pg MCHC 32.6 g/dL RDW 13.6 % RDW-SD 45.1 fl MPV 9.4 fL Platelets 411 10*3/mm3 Lactic Acid, Plasma [[id number]] (Abnormal) Collected: 01/26/25208 Specimen: Blood Updated: 01/26/25 0245 Lactate 2.7 mmol/L Comment: Falsely depressed results may occur on samples drawn from patients receiving N-Acetylcysteine (NAC) or Metamizole. LSAC Slide Creation [[id number]] Collected: 01/26/25208 Specimen: Blood Updated: 01/26/25 023 Calcium, Ionized [[id number]] (Normal) Collected: 01/26/25208 Specimen: Blood Updated: 01/26/25221 Ionized Calcium 1.15 mmol/L Rads: Imaging Results (Last 48 Hours) Procedure Component Value Units Date/Time MRI Brain Without Contrast [[id number]] Collected: 01/26/25615 Updated: 01/26/25639 Narrative: MRI BRAIN [...] EDT Workstation ID: [id number] CT Outside Head [[id number]] Resulted: 01/26/25238 Updated: 01/26/25238 Narrative: This procedure was auto-finalized with no dictation required. CT Outside Spine [[id number]] Resulted: 01/26/25238 Updated: 01/26/25238 Narrative: This procedure was auto-finalized with no dictation required. CT Outside Spine [[id number]] Resulted: 01/26/25238 Updated: 01/26/25238 Narrative: This procedure was auto-finalized with no dictation required. CT Outside Spine [[id number]] Resulted: 01/26/25237 Updated: 01/26/25237 Narrative: This procedure was auto-finalized with no dictation required. CT Outside Abd/Pelvis [[id number]] Resulted: 01/26/25237 Updated: 01/26/25237 Narrative: This procedure was auto-finalized with no dictation required. CT Outside Abd/Pelvis [[id number]] Resulted: 01/26/25236 Updated: 01/26/25236 Narrative: This procedure was auto-finalized with no dictation required. CT Outside Chest [[id number]] Resulted: 01/26/25236 Updated: 01/26/25236 Narrative: This procedure was auto-finalized with no dictation required. CT Angiogram Neck [[id number]] Collected: 01/26/25147 Updated: 01/26/25156 Narrative: CT ANGIOGRAM [...] MD 01/26/2025 1:54 AM EDT Workstation ID: [id number] CT Angiogram Head w AI Analysis of LVO [[id number]] Collected: 01/26/25147 Updated: 01/26/25156 Narrative: CT ANGIOGRAM [...] MD 01/26/2025 1:54 AM EDT Workstation ID: [id number] CT Head Without Contrast [[id number]] Collected: 01/26/25144 Updated: 01/26/25148 Narrative: CT HEAD [...] MD 01/26/2025 1:46 AM EDT Workstation ID: [id number] Assessment: Encephalopathy with possible seizure, improving. Episode [...] lumen PICC confirmed with 3cg. * Tremaine Guzmna RN - 01/26/2025 9:31 AM EDT Chart review for elementary educator consult. At the time of this [...] Care Physician: Timothy Granda DO Referring Physician: [facility] ICU Provider Handedness: Unknown Race: Chief Complaint/Reason for Consultation: Altered mental status HPI Last Known Normal Date/Time: Unknown This patient is a 74-year-old female with past medical history significant for hypertension, hyperlipidemia, remote hep C, anxiety/depression, chronic pain, and reported polysubstance use who was admitted to [facility] with altered mental status. Spoke to [facility] Provider who was able to provide only limited history. ED Provider reportedly had suspicion for opiate/benzodiazepine use and gave reversal medications . Following medication administration, patient reportedly had a seizure and was loaded with 2 g Keppra and admitted to [facility]. CT imaging with and without contrast was obtained. Noncontrast CTh reportedly showed suspicion for trace SAH. LP was performed at OSH with results detailed below. Transfer to [facility] for higher level of care was requested in setting of finding of possible SAH. Patient was seen and examined immediately on arrival to [facility]. Patient is not alert but arouses [...] CTA H/N were obtained on arrival to [facility]. Imaging was significantly motion degraded but [...] resulted in removal iof 13 precancerous polyps. Lighting Adviser Dr Connor Jose (retired, [place], [place]), advised stringent lifelong avoidance of all NSAIDS. Depression Headache 1989. Migraines became chronic and very diffucult to manage. Multiple treatment regimens were attempted. Some were helpful. Migraines ceased at menopause with few occasions thereafter. Heart murmur Hepatitis C history- currently tests negative by GI dr Oates Hypertension 2014 Drug treatment has been successful [...] RIGHT; Surgeon: Bautista Luis MD; Location: [facility]; Service: Orthopedics TUBAL ABDOMINAL LIGATION 1989 [...] MD 01/26/2025 1:54 AM EDT Workstation ID: [id number] CT Angiogram Head w AI Analysis of LVO Result Date: 01/26/2025 Impression: Significantly limited exam due to motion artifact. The neck vasculature is not adequately evaluated. The intracranial vasculature is normal. There is no evidence of large vessel occlusion. Electronically Signed: Jesus Peterson MD 01/26/2025 1:54 AM EDT Workstation ID: [id number] CT Head Without Contrast Result Date: 01/26/2025 Impression: No acute intracranial abnormality. Electronically Signed: Jesus Peterson MD 01/26/2025 1:46 AM EDT Workstation ID: [id number] Assessment and Plan This patient is a [...] results as above. Patient was transferred to [facility] for higher level of care. On arrival to [facility], NIH score was 13 for altered mental status, no focal neurologic deficits appreciated. Stat CT imaging was obtained on arrival to [facility] which were motion degraded but showed no evidenceof SAH or other acute abnormality. LP at OSH 01/25/2025: WBC 2, RBC 1, glucose 105, protein 100, Gram stain and culture pending Antiplatelet LATEX SPOOLER: None Anticoagulant LATEX SPOOLER: None Acute encephalopathy Possible SAH reported on [...] stat CTh for any acute neurological change -PT/OT/TEST ENGINEER NUCLEAR EQUIPMENT as appropriate Disposition: Patient is admitted to the ICU Case discussed with the patient, bedside RN, and [facility] ICU Providers. Thank you for the consult. Stroke neurology will continue to follow. Rayshawn Hercules PA-C [facility] Stroke Neurology Cosigned by Rayshawn Camp MD at 01/26/2025 10:39 AM EDT Associated attestation - Rayshawn Camp MD - 01/26/2025 10:39 AM EDT There is no evidence of SAH on CTH performed at [facility]. MRI did not reveal evidence of acute infarct, however imaging was more concerning PRES vs encephalitis vs cerebritis vs other. Will defer further workup and recommendations to the General Neurology team. Rayshawn Camp MD Vascular Neurologist [facility] documented in this encounter Nursing Notes [...] organization consistent safety round/check completed Taken 01/28/2025 2200 by Mary Wu RN Safety Promotion/Fall Prevention: activity supervised assistive device/personal items within reach clutter free environment maintained fall prevention program maintained lighting adjusted nonskid shoes/slippers when out of bed room organization consistent safety round/check completed Taken 01/28/2025 2000 by Mary Wu RN Safety Promotion/Fall Prevention: [...] foam - sacrum/coccyx Taken 01/28/20251999 by Mary uW RN Body Position: position changed independently Skin [...] assistance provided Head of Bed (HOB) Positioning: [facility] elevated Pressure Reduction Devices: positioning supports utilized [...] sacrum/coccyx Taken 01/28/20251999 by Mary Wu RN Activity Management: activity [...] Taken 01/29/2025 0400 by Mary Wu RN Assembly Operator Protection: tubing secured Taken 01/29/2025 0200 by Mary Wu RN Assembly Operator Protection: tubing secured Taken 01/29/2025 0000 by Mary Wu RN Assembly Operator Protection: tubing secured Taken 01/28/2025 2200 by Mary Wu RN Assembly Operator Protection: tubing secured Taken 01/28/20251999 by Mary Wu RN Assembly Operator Protection: tubing secured Diversional Activities: television Intervention: [...] Minimize Safety Risk Recent Flowsheet Documentation Taken 01/29/2025399 by Mary Wu RN Enhanced Safety Measures: [...] and Manage Contributors Recent Flowsheet Documentation Taken 01/29/2025399 by Mary Wu RN Self-Care Promotion: independence encouraged BADL personal objects within reach Taken 01/29/2025 020 by Mary Wu RN Self-Care Promotion: independence encouraged BADL personal objects within reach Taken 01/29/2025 by Mary Wu RN Self-Care Promotion: independence encouraged BADL personal objects within reach Taken 01/28/20252199 by Mary Wu RN Self-Care Promotion: independence encouraged BADL personal objects within reach Taken 01/28/20251999 by Mary Wu RN Medication Review/Management: medications reviewed Self-Care Promotion: independence encouraged BADL personal objects within reach Intervention: Promote Injury-Free Environment Recent Flowsheet Documentation Taken 01/29/2025399 by Mary Wu RN Safety Promotion/Fall Prevention: activity supervised assistive device/personal items within reach clutter free environment maintained fall prevention program maintained lighting adjusted nonskid shoes/slippers when out of bed room organization consistent safety round/check completed Taken 01/29/2025199 by Mary Wu RN Safety Promotion/Fall Prevention: [...] round/check completed Goal Outcome Evaluation: * Madiha Mccauley MS CCC-TEST ENGINEER NUCLEAR EQUIPMENT - 01/28/2025 3:51 PM EDT Goal Outcome Evaluation: Plan of Care Reviewed With: patient, spouse Progress: improving Anticipated Discharge Disposition (TEST ENGINEER NUCLEAR EQUIPMENT): home with OP services (if deficits persist @ time of d/c) Treatment Assessment (TEST ENGINEER NUCLEAR EQUIPMENT): improved, mild, cognitive-linguistic disorder (01/28/251499) Treatment Assessment Comments (TEST ENGINEER NUCLEAR EQUIPMENT): Mild deficits are acute/atypical for pt per her report. (01/28/25 1500) Plan for Continued Treatment (TEST ENGINEER NUCLEAR EQUIPMENT): continue treatment per plan of care, goals [...] Disposition (OT): (P) home Cosigned by Florence Ramirez, OT at 01/28/2025 10:17 AM EDT Associated attestation - Florence River OT - 01/28/2025 10:17 AM EDT Florence Ramirez OTR/L 01/28/25 10:17AM * Raeann Arredondo RN [...] improving Taken 01/26/2025 1335 by Dinora Huston, KELLEY Plan of Care Reviewed With: patient Goal: [...] Documentation Taken 01/27/20252257 by Raeann Arredondo RN Assembly Operator Protection: IV pole/bag removed from visual field [...] independently Skin Protection: incontinence pads utilized Taken 01/28/2025199 by Raeann Arredondo RN Body Position: position changed independently Skin Protection: incontinence pads utilized Taken 01/27/20252257 by Raeann Arredondo RN Body Position: position changed independently Skin Protection: incontinence pads utilized Problem: Violence Risk or Actual Goal: Anger and Impulse Control Outcome: Progressing Intervention: Minimize Safety Risk Recent Flowsheet Documentation Taken 01/28/2025599 by Raeann Arredondo RN Enhanced Safety Measures: bed alarm set Taken 01/28/2025399 by Raeann Arredondo RN Enhanced Safety Measures: bed alarm set Taken 01/28/2025199 by Raeann Arredondo RN Enhanced Safety Measures: bed alarm set Taken 01/27/20252257 by Raeann Arredondo RN Enhanced Safety Measures: bed alarm set Problem: Fall Injury Risk Goal: Absence of Fall and Fall-Related Injury Outcome: Progressing Intervention: Identify and Manage Contributors Recent Flowsheet Documentation Taken 01/28/2025599 by Raeann Arredondo RN Medication Review/Management: medications reviewed Taken 01/28/2025399 by Raeann Arredondo RN Medication Review/Management: medications reviewed Taken 01/28/2025199 by Raeann Arredondo RN Medication Review/Management: medications reviewed Taken 01/27/20252257 by Raeann Arredondo RN Medication Review/Management: medications reviewed Intervention: Promote Injury-Free Environment Recent Flowsheet Documentation Taken 01/28/2025599 by Raeann Arredondo RN Safety Promotion/Fall Prevention: activity supervised assistive device/personal items within reach clutter free environment maintained fall prevention program maintained nonskid shoes/slippers when out of bed room organization consistent safety round/check completed Taken 01/28/2025399 by Raeann Arredondo RN Safety Promotion/Fall Prevention: [...] organization consistent safety round/check completed Taken 01/27/2025 3859 by Raeann Arredondo RN Safety Promotion/Fall Prevention: activity supervised assistive device/personal items within reach clutter free environment maintained fall prevention program maintained nonskid shoes/slippers when out of bed room organization consistent safety round/check completed Goal Outcome Evaluation: Progress: improving * Nic Martin MS CCC-TEST ENGINEER NUCLEAR EQUIPMENT - 01/26/2025 1:04 PM EDT Goal Outcome Evaluation: Plan of Care Reviewed With: patient Progress: improving Anticipated Discharge Disposition (TEST ENGINEER NUCLEAR EQUIPMENT): inpatient rehabilitation facility, other (see comments) (no further dysphagia intervention indicated, TEST ENGINEER NUCLE[employer] EQUIPMENT will f/u w cog) TEST ENGINEER [employer]UCLE[employer] EQUIPMENT Diagnosis: moderate-severe, cognitive-linguistic disorder (01/26/25 1030) TEST ENGINEER NUCLE[employer] EQUIPMENT Diagnosis Comments: deficits are low level and are more c/w cognitive- linguistic deficits than language. (01/26/25 1030) TEST ENGINEER NUCLE[employer] EQUIPMENT Swallowing Diagnosis: swallow WFL/no suspected pharyngeal impairment (01/26/25 1030) * Shelly Saleem OT - 01/26/2025 11:44 [...] pt progress closely. Anticipated Discharge Disposition (OT): retirement facility * Dinora Huston, PT - 01/26/2025 [...] monitor pt's progress. Anticipated Discharge Disposition (PT): retirement facility * West Epps RN - 01/26/2025 [...] CWOCN Wound, Ostomy and Continence (WOC) Department [facility] documented in this encounter Miscellaneous Notes * Case Management/Social Work - Mearri Skaggs, MANAGER SOLAR - 01/29/2025 1:42 PM EDT Case Management Discharge Note Final Note: MANAGER SOLAR spoke with pt at bedside. Speech therapy [...] Therapy Treatment Note - Madiha Mccauley MS CCC-TEST ENGINEER NUCLEAR EQUIPMENT - 01/28/2025 3:52 PM EDT Images from the original note were not included. Acute Care - Speech Language Pathology Treatment Note [facility] Patient Name: Farrah Atkinson : 1950 Today's Date: 01/28/2025 Admit Date: 01/26/2025 Visit Dx: ICD-10-CM ICD-9-CM 1. Cognitive communication deficit R41.841 799.52 2. 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 Lighting Adviser Dr Connor Jose ([facility], [place], [place]), advised stringent lifelong avoidance of all [...] RIGHT; Surgeon: Bautista Luis MD; Location: [facility]; Service: Orthopedics TUBAL ABDOMINAL LIGATION 1989 TEST ENGINEER NUCLEAR EQUIPMENT Recommendation and Plan Recommended discharge disposition is based on the functional assessment performed by PT/OT/Speech therapy (as applicable) and may not reflect the medical necessity determined by your provider or services covered by an individual patient's insurance plan or patient resource. Anticipated Discharge Disposition (TEST ENGINEER NUCLEAR EQUIPMENT): home with OP services (if deficits persist @ time of d/c) (01/28/25 1500) Therapy Frequency (TEST ENGINEER NUCLEAR EQUIPMENT SLC): 5 days per week (01/28/25 1500) Predicted Duration Therapy Intervention (Days): 2 weeks (01/28/25 1500) Daily Summary of Progress (TEST ENGINEER NUCLEAR EQUIPMENT): progress toward functional goals as expected (01/28/25 1500) Treatment Assessment (TEST ENGINEER NUCLEAR EQUIPMENT): improved, mild, cognitive-linguistic disorder (01/28/25 1500) Treatment Assessment Comments (TEST ENGINEER NUCLEAR EQUIPMENT): Mild deficits are acute/atypical for pt per her report. (01/28/25 1500) Plan for Continued Treatment (TEST ENGINEER NUCLEAR EQUIPMENT): continue treatment per plan of care, goals adjusted to reflect functional improvements demonstrated (01/28/25 1500) Progress: improving (01/28/25 1551) TEST ENGINEER NUCLEAR EQUIPMENT EVALUATION (Last 72 Hours) TEST ENGINEER NUCLEAR EQUIPMENT SLC Evaluation Row Name 01/28/25 1500 01/26/25 [...] Function -- WFL -RS Cognitive Assessment Intervention- TEST ENGINEER [employer]UCLE[employer] EQUIPMENT Cognitive Function (Cognition) mild impairment -AC severe [...] Comment -- oriented to year only -RS TEST ENGINEER [employer]UCLE[employer] EQUIPMENT Evaluation Clinical Impressions TEST ENGINEER NUCLEAR EQUIPMENT Diagnosis -- moderate-severe;cognitive-linguistic disorder -RS TEST ENGINEER [employer]UCLE[employer] EQUIPMENT Diagnosis Comments -- deficits are low level and are more c/w cognitive- linguistic deficits than language. -RS Rehab Potential/Prognosis -- good -RS [facility] Criteria for Skilled Therapy Interventions Met -- yes -RS TEST ENGINEER [employer]UCLE[employer] EQUIPMENT Treatment Clinical Impressions Treatment Assessment (TEST ENGINEER NUCLEAR EQUIPMENT) improved;mild;cognitive-linguistic disorder -AC -- Treatment Assessment Comments (TEST ENGINEER NUCLEAR EQUIPMENT) Mild deficits are acute/atypical for pt per her report. -AC -- Daily Summary of Progress (TEST ENGINEER NUCLEAR EQUIPMENT) progress toward functional goals as expected -AC -- Plan for Continued Treatment (TEST ENGINEER NUCLEAR EQUIPMENT) continue treatment per plan of care;goals adjusted to reflect functional improvements demonstrated -AC -- Care Plan Review evaluation/treatment results reviewed;care plan/treatment goals reviewed;risks/benefits reviewed;current/potential barriers reviewed;patient/other agree to care plan -AC -- Care Plan Review, Other Participant(s) spouse -AC -- Recommendations Therapy Frequency (TEST ENGINEER NUCLEAR EQUIPMENT SLC) 5 days per week -AC 5 days per week -RS Predicted Duration Therapy Intervention (Days) 2 weeks -AC 2 weeks -RS Anticipated Discharge Disposition (TEST ENGINEER NUCLEAR EQUIPMENT) home with OP services if deficits persist @ time of d/c -[facility] rehabilitation facility;other (see comments) no further dysphagia intervention indicated,TEST ENGINEER [employer]UCLEAR EQUIPMENT will f/u w cog -RS User Thompson (r) = Recorded By, (t) = Taken By, (c) = Cosigned By Initials Name Effective Dates AC Madiha Mccauley MS CCC-TEST ENGINEER NUCLEAR EQUIPMENT 05/05/22 - RS Nic Martin MS CCC-TEST ENGINEER NUCLEAR EQUIPMENT 12/14/22 - EDUCATION The patient has been educated in the following areas: Cognitive Impairment. TEST ENGINEER NUCLEAR EQUIPMENT GOALS Row Name 01/28/25 1500 01/26/25 1030 Patient will demonstrate functional cognitive-linguistic skills for return to discharge environment [place] Independently -AC with moderate cues -RS Time frame 2 weeks -AC 2 weeks -RS Progress/Outcomes goal revised this date -AC new goal -RS TEST ENGINE[employer]UCLE[employer] EQUIPMENT Diagnostic Treatment Patient will participate in further assessment in the following areas reading comprehension;graphicexpression -AC reading comprehension;graphic expression -RS Time Frame (Diagnostic) 1 week -AC 1 week -RS Progress/Outcomes (Additional Goal 1, TEST ENGINEER NUCLEAR EQUIPMENT) goal met -AC new goal -RS Comment (Diagnostic) See assessment. -AC -- Comprehend Questions Goal 1 (TEST ENGINEER NUCLEAR EQUIPMENT) Improve Ability to Comprehend Questions Goal 1 (TEST ENGINEER NUCLEAR EQUIPMENT) simple yes/no questions;80%;with moderate cues(50-74%) -AC simple yes/no questions;80%;with moderate cues (50-74%) -RS Time Frame (Comprehend Questions Goal 1, TEST ENGINEER NUCLEAR EQUIPMENT) 1 week -AC 1 week -RS Progress (Ability to Comprehend Questions Goal 1, TEST ENGINEER NUCLEAR EQUIPMENT) 100%;independently (over 90% accuracy) -AC -- Progress/Outcomes (Comprehend Questions Goal 1, TEST ENGINEER NUCLEAR EQUIPMENT) goal met -AC new goal -RS Follow Directions Goal 2 (TEST ENGINEER NUCLEAR EQUIPMENT) Improve Ability to Follow Directions Goal 1 (TEST ENGINEER NUCLEAR EQUIPMENT) 1 step direction without objects;80%;with moderate cues (50-74%) -AC 1 step direction without objects;80%;with moderate cues (50-74%) -RS Time Frame (Follow Directions Goal 1, TEST ENGINEER NUCLEAR EQUIPMENT) 1 week -AC 1 week -RS Progress (Ability to Follow Directions Goal 1, TEST ENGINEER NUCLEAR EQUIPMENT) 100%;independently (over 90% accuracy) -AC -- Progress/Outcomes (Follow Directions Goal 1, TEST ENGINEER NUCLEAR EQUIPMENT) goal met -AC new goal -RS Orientation Goal 1 (TEST ENGINEER NUCLEAR EQUIPMENT) Improve Orientation Through Goal 1 (TEST ENGINEER NUCLEAR EQUIPMENT) demonstrating orientation to day;demonstrating orientationto month;demonstrating orientation to year;80%;with moderate cues (50-74%) -AC demonstrating orientation to day;demonstrating orientation to month;demonstrating orientation to year;80%;with moderate cues (50-74%) -RS Time Frame (Orientation Goal 1, TEST ENGINEER NUCLE[employer] EQUIPMENT) 1 week -AC 1 week -RS Progress (Orientation Goal 1, TEST ENGINEER NUCLEAR EQUIPMENT) 100%;independently (over 90% accuracy) -AC -- Progress/Outcomes (Orientation Goal 1, TEST ENGINEER NUCLEAR EQUIPMENT) goal met -AC new goal -RS Memory Skills Goal 1 (TEST ENGINEER NUCLEAR EQUIPMENT) Improve Memory Skills Through Goal 1 (TEST ENGINEER NUCLEAR EQUIPMENT) recalling related word lists immediately;listen to a paragraph and answer questions;use memory strategies;90%;independently (over 90% accuracy) -AC -- Time Frame (Memory Skills Goal 1, TEST ENGINEER NUCLEAR EQUIPMENT) 1 week -AC -- Progress/Outcomes (Memory Skills Goal 1, TEST ENGINEER NUCLEAR EQUIPMENT) new goal -AC -- Organizational Skills Goal 1 ([facility]) Improve Thought Organization Through Goal 1 ([facility]) completing mental manipulation task;90%;with minimal cues (75-90%) -AC -- Time Frame (Thought Organization Skills Goal 1, TEST ENGINEER NUCLEAR EQUIPMENT) 1 week -AC -- Progress/Outcomes (Thought Organization Skills Goal 1, TEST ENGINEER NUCLEAR EQUIPMENT) new goal -AC -- Executive Functional Skills Goal 1 (TEST ENGINEER NUCLEAR EQUIPMENT) Improve Executive Function Skills Goal 1 (TEST ENGINEER NUCLEAR EQUIPMENT) identify anticipated needs;organization/planning activity;80%;with minimal cues (75-90%) -AC -- Time Frame (Executive Function Skills Goal 1, TEST ENGINEER NUCLEAR EQUIPMENT) 1 week -AC -- Progress/Outcomes (Executive Function Skills Goal 1, TEST ENGINEER NUCLEAR EQUIPMENT) new goal -AC -- User Thompson (r) = Recorded By, (t) = Taken By, (c) = Cosigned By Initials Name Provider Type Madiha Ramos MS CCC-TEST ENGINEER NUCLEAR EQUIPMENT Speech and Language Pathologist RS Nic Martin MS CCC-TEST ENGINEER NUCLEAR EQUIPMENT Speech and Language Pathologist Time Calculation: Time Calculation- TEST ENGINEER NUCLEAR EQUIPMENT Row Name 01/28/25 1551 Time Calculation- TEST ENGINEER NUCLEAR EQUIPMENT TEST ENGINEER NUCLEAR EQUIPMENT Start Time 1500 -AC TEST ENGINEER NUCLEAR EQUIPMENT Received On 01/28/25 -AC Untimed Charges 45815-YJ Treatment/ST Modification Prosth Aug Alter 54 -AC Total Minutes Untimed Charges Total Minutes 54 -AC Total Minutes 54 -AC User Thompson (r) = Recorded By, (t) = Taken By, (c) = Cosigned By Initials Name Provider Type Mdaiha Ramos MS CCC-TEST ENGINEER NUCLEAR EQUIPMENT Speech and Language Pathologist Therapy Charges for Today Code Description Service Date Service Provider Modifiers Qty [id number] HC ST TREATMENT SPEECH 4 01/28/2025 Madiha Mccauley MS CCC-TEST ENGINEER NUCLEAR EQUIPMENT GN 1 Madiha Mccauley MS CCC-TEST ENGINEER NUCLEAR EQUIPMENT 01/28/2025 * Case Management/Social Work - Merari Skaggs MSW - 01/28/2025 11:15 AM EDT Continued Stay Note [facility] Patient Name: Farrah Atkinson Today's Date: 01/28/2025 [...] longer recommending SNF and jsut rec home. MANAGER SOLAR remains available for any discharge needs thatarise. Discharge Codes No documentation. JEAN Shane * Therapy Evaluation - Nic Martin MS CCC-SLP - 01/26/2025 1:04 PM EDT Images from the original note were not included. Acute Care - Speech Language Pathology Swallow Initial Evaluation [facility] Clinical Swallow Evaluation + Cognitive-Communication Evaluation Patient Name: Farrah Atkinson : 1950 Today's Date: 01/26/2025 Admit Date: 01/26/2025 Visit Dx: ICD-10-CM ICD-9-CM 1. 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 Lighting Adviser Dr Connor Jose (retired, [place], [place]), advised stringent lifelong avoidance of all [...] RIGHT; Surgeon: Bautista Luis MD; Location: [facility]; Service: Orthopedics TUBAL ABDOMINAL LIGATION 1989 TEST ENGINEER NUCLEAR EQUIPMENT Recommendation and Plan Recommended discharge disposition is based on the functional assessment performed by PT/OT/Speech therapy (as applicable) and may not reflect the medical necessity determined by your provider or services covered by an individual patient's insurance plan or patient resource. TEST ENGINEER NUCLEAR EQUIPMENT Swallowing Diagnosis: swallow WFL/no suspected pharyngeal impairment (01/26/251029) TEST ENGINEER NUCLEAR EQUIPMENT Diet Recommendation: regular textures, thin liquids (01/26/251029) TEST ENGINEER NUCLEAR EQUIPMENT Rec. for Method of Medication Administration: as tolerated (01/26/251029) Swallow Criteria for Skilled Therapeutic Interventions Met: no problems identified which require skilled intervention (01/26/251029) Anticipated Discharge Disposition (TEST ENGINEER NUCLEAR EQUIPMENT): inpatient rehabilitation facility, other (see comments) (no further dysphagia intervention indicated, TEST ENGINEER NUCLEAR EQUIPMENT will f/u w cog) (01/26/251029) Predicted Duration Therapy Intervention (Days): 2 weeks (01/26/251029) Oral Care Recommendations: Oral Care BID/PRN, Toothbrush (01/26/251029) Progress: improving SWALLOW EVALUATION (Last 72 Hours) TEST ENGINEER NUCLEAR EQUIPMENT Adult Swallow Evaluation Row Name 01/26/251029 Rehab Evaluation Document Type evaluation -RS Subjective [...] Function-Swallowing other (see comments) FEES 08/2022 at [facility] 2/2 cord dysfunction. Soft/ntl/no mixed/single drinks [...] room air -RS Eating/Swallowing Skills fed by TEST ENGINEER NUCLEAR EQUIPMENT;other (see comments) pt in bilateral wrist restraints -RS Positioning During Eating upright in bed -RS Utensils Used spoon;cup;straw -RS Consistencies Trialed regular textures;mixed consistency;ice chips;thin liquids;pureed -RS Respiratory Respiratory Status WFL -RS Clinical Swallow Eval Oral Prep Phase WFL -RS Oral Transit WFL -RS Oral Residue WFL -RS Pharyngeal Phase no overt signs/symptoms of pharyngeal impairment -RS Esophageal Phase unremarkable -RS TEST ENGINEER [employer]UCLE[employer] EQUIPMENT Evaluation Clinical Impression TEST ENGINEER NUCLEAR EQUIPMENT Swallowing Diagnosis swallow WFL/no suspected pharyngeal impairment -RS Swallow Criteria for Skilled Therapeutic Interventions Met no problems identified which require skilled intervention -RS Recommendations TEST ENGINEER NUCLEAR EQUIPMENT Diet Recommendation regular textures;thin liquids -RS Oral Care Recommendations Oral Care BID/PRN;Toothbrush -RS TEST ENGINEER NUCLEAR EQUIPMENT Rec. for Method of Medication Administration as tolerated -RS User Thompson (r) = Recorded By, (t) = Taken By, (c) = Cosigned By Initials Name Effective Dates RS Nic Martin MS [facility]-TEST ENGINEER NUCLEAR EQUIPMENT 12/14/22 - EDUCATION The patient has been educated in the following areas: Dysphagia (Swallowing Impairment). TEST ENGINEER NUCLEAR EQUIPMENT GOALS Row Name 01/26/25 1030 Patient will demonstrate functional cognitive-linguistic skills for return to discharge environment [place] with moderate cues -RS Time frame 2 weeks -RS Progress/Outcomes new goal -RS TEST ENGINEER NUCLEAR EQUIPMENT Diagnostic Treatment Patient will participate in further assessment in the following areas reading comprehension;graphicexpression -RS Time Frame (Diagnostic) 1 week -RS Progress/Outcomes (Additional Goal 1, TEST ENGINEER NUCLEAR EQUIPMENT) new goal -RS Comprehend Questions Goal 1 (TEST ENGINEER NUCLEAR EQUIPMENT) Improve Ability to Comprehend Questions Goal 1 (TEST ENGINEER NUCLEAR EQUIPMENT) simple yes/no questions;80%;with moderate cues(50-74%) -RS Time Frame (Comprehend Questions Goal 1, TEST ENGINEER NUCLEAR EQUIPMENT) 1 week -RS Progress/Outcomes (Comprehend Questions Goal 1, TEST ENGINEER NUCLEAR EQUIPMENT) new goal -RS Follow Directions Goal 2 (TEST ENGINEER NUCLEAR EQUIPMENT) Improve Ability to Follow Directions Goal 1 (TEST ENGINEER NUCLEAR EQUIPMENT) 1 step direction without objects;80%;with moderate cues (50-74%) -RS Time Frame (Follow Directions Goal 1, TEST ENGINEER NUCLEAR EQUIPMENT) 1 week -RS Progress/Outcomes (Follow Directions Goal 1, TEST ENGINEER NUCLEAR EQUIPMENT) new goal -RS Orientation Goal 1 (TEST ENGINEER NUCLEAR EQUIPMENT) Improve Orientation Through Goal 1 (TEST ENGINEER NUCLEAR EQUIPMENT) demonstrating orientation to day;demonstrating orientationto month;demonstrating orientation to year;80%;with moderate cues (50-74%) -RS Time Frame (Orientation Goal 1, TEST ENGINEER NUCLEAR EQUIPMENT) 1 week -RS Progress/Outcomes (Orientation Goal 1, TEST ENGINEER NUCLEAR EQUIPMENT) new goal -RS User Thompson (r) = Recorded By, (t) = Taken By, (c) = Cosigned By Initials Name Provider Type Nic Conti MS CCC-TEST ENGINEER NUCLEAR EQUIPMENT Speech and Language Pathologist Time Calculation: Time Calculation- TEST ENGINEER NUCLEAR EQUIPMENT Row Name 01/26/25 1305 Time Calculation- TEST ENGINEER NUCLEAR EQUIPMENT TEST ENGINEER NUCLEAR EQUIPMENT Start Time 1030 -RS TEST ENGINEER NUCLEAR EQUIPMENT Received On 01/26/25 -RS Untimed Charges 14093-RL Eval Speech and Production w/ Language Minutes 25 -RS 11869-MI Eval Oral Pharyng Swallow Minutes 40 -RS Total Minutes Untimed Charges Total Minutes 65 -RS Total Minutes 65 -RS User Thompson (r) = Recorded By, (t) = Taken By, (c) = Cosigned By Initials Name Provider Type Nic Conti MS CCC-TEST ENGINEER NUCLEAR EQUIPMENT Speech and Language Pathologist Therapy Charges for Today Code Description Service Date Service Provider Modifiers Qty [id number] HC ST EVAL ORAL PHARYNG SWALLOW 3 01/26/2025 Nic Martin MS CCC-SLP GN [id number] EVAL SPEECH AND PROD W LANG 2 01/26/2025 Nic Martin MS CCC- SLP GN 1 MS CLAUDE Gavin 01/26/2025 and Acute Care - Speech Language Pathology Initial Evaluation [facility] Cognitive-Communication Evaluation Patient Name: Farrah Atkinson : 1950 Today's Date: 01/26/2025 Admit Date: 01/26/2025 Visit Dx: ICD-10-CM ICD-9-CM 1. 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 Lighting Adviser Dr Connor Jose (retired, [place], [place]), advised stringent lifelong avoidance of all NSAIDS. [...] RIGHT; Surgeon: Bautista Luis MD; Location: [facility]; Service: Orthopedics TUBAL ABDOMINAL LIGATION 1989 TEST ENGINEER NUCLEAR EQUIPMENT Recommendation and Plan Recommended discharge disposition is based on the functional assessment performed by PT/OT/Speech therapy (as applicable) and may not reflect the medical necessity determined by your provider or services covered by an individual patient's insurance plan or patient resource. TEST ENGINEER NUCLEAR EQUIPMENT Diagnosis: moderate-severe, cognitive-linguistic disorder (01/26/25 1030) TEST ENGINEER NUCLEAR EQUIPMENT Diagnosis Comments: deficits are low level and are more c/w cognitive- linguistic deficits than language. (01/26/25 103) Swallow Criteria for Skilled Therapeutic Interventions Met: no problems identified which require skilled intervention (01/26/25 103) SLC Criteria for Skilled Therapy Interventions Met: yes (01/26/251029) Anticipated Discharge Disposition (TEST ENGINEER NUCLEAR EQUIPMENT): inpatient rehabilitation facility, other (see comments) (no further dysphagia intervention indicated, TEST ENGINEER NUCLEAR EQUIPMENT will f/u w cog) (01/26/25 1030) Therapy Frequency (TEST ENGINEER NUCLEAR EQUIPMENT SLC): 5 days per week (01/26/25 103) Predicted Duration Therapy Intervention (Days): 2 weeks (01/26/25 103) Oral Care Recommendations: Oral Care BID/PRN, Toothbrush (01/26/25 1030) Progress: improving (01/26/25 1304) TEST ENGINEER NUCLEAR EQUIPMENT EVALUATION (Last 72 Hours) TEST ENGINEER NUCLEAR EQUIPMENT SLC Evaluation Row Name 01/26/251029 Comprehension Assessment/Intervention [...] Speech Function WFL -RS Cognitive Assessment Intervention- TEST ENGINEER NUCLEAR EQUIPMENT Cognitive Function (Cognition) severe impairment -RS Orientation Status (Cognition) person;moderate impairment;severe impairment -RS Cognition, Comment oriented to year only -RS TEST ENGINEER NUCLEAR EQUIPMENT Evaluation Clinical Impressions TEST ENGINEER NUCLEAR EQUIPMENT Diagnosis moderate-severe;cognitive-linguistic disorder -RS TEST ENGINEER NUCLEAR EQUIPMENT Diagnosis Comments deficits are low level and are more c/w cognitive- linguistic deficits than language. -RS Rehab Potential/Prognosis good -RS SLC Criteria for Skilled Therapy Interventions Met yes -RS Recommendations Therapy Frequency (TEST ENGINEER NUCLEAR EQUIPMENT SLC) 5 days per week -RS Predicted Duration Therapy Intervention (Days) 2 weeks -RS Anticipated Discharge Disposition (TEST ENGINEER NUCLEAR EQUIPMENT) inpatient rehabilitation facility;other (see comments) no further dysphagia intervention indicated, TEST ENGINEER NUCLEAR EQUIPMENT will f/u w cog -RS User Thompson (r) = Recorded By, (t) = Taken By, (c) = Cosigned By Initials Name Effective Dates RS Nic Martin MS [facility]-TEST ENGINEER NUCLEAR EQUIPMENT 12/14/22 - EDUCATION The patient has been educated in the following areas: Cognitive Impairment. TEST ENGINEER NUCLEAR EQUIPMENT GOALS Row Name 01/26/251029 Patient will demonstrate functional cognitive-linguistic skills for return to discharge environment [place] with moderate cues -RS Time frame 2 weeks -RS Progress/Outcomes new goal -RS TEST ENGINEER NUCLEAR EQUIPMENT Diagnostic Treatment Patient will participate in further assessment in the following areas reading comprehension;graphicexpression -RS Time Frame (Diagnostic) 1 week -RS Progress/Outcomes (Additional Goal 1, TEST ENGINEER NUCLEAR EQUIPMENT) new goal -RS Comprehend Questions Goal 1 (TEST ENGINEER NUCLEAR EQUIPMENT) Improve Ability to Comprehend Questions Goal 1 (TEST ENGINEER NUCLEAR EQUIPMENT) simple yes/no questions;80%;with moderate cues(50-74%) -RS Time Frame (Comprehend Questions Goal 1, TEST ENGINEER NUCLEAR EQUIPMENT) 1 week -RS Progress/Outcomes (Comprehend Questions Goal 1, TEST ENGINEER NUCLEAR EQUIPMENT) new goal -RS Follow Directions Goal 2 (TEST ENGINEER NUCLEAR EQUIPMENT) Improve Ability to Follow Directions Goal 1 (TEST ENGINEER NUCLEAR EQUIPMENT) 1 step direction without objects;80%;with moderate cues (50-74%) -RS Time Frame (Follow Directions Goal 1, TEST ENGINEER NUCLEAR EQUIPMENT) 1 week -RS Progress/Outcomes (Follow Directions Goal 1, TEST ENGINEER NUCLEAR EQUIPMENT) new goal -RS Orientation Goal 1 (TEST ENGINEER NUCLEAR EQUIPMENT) Improve Orientation Through Goal 1 (TEST ENGINEER NUCLEAR EQUIPMENT) demonstrating orientation to day;demonstrating orientationto month;demonstrating orientation to year;80%;with moderate cues (50-74%) -RS Time Frame (Orientation Goal 1, TEST ENGINEER NUCLEAR EQUIPMENT) 1 week -RS Progress/Outcomes (Orientation Goal 1, TEST ENGINEER NUCLEAR EQUIPMENT) new goal -RS User Thompson (r) = Recorded By, (t) = Taken By, (c) = Cosigned By Initials Name Provider Type RS Nic Martin MS CCC-TEST ENGINEER NUCLEAR EQUIPMENT Speech and Language Pathologist Time Calculation: Time Calculation- TEST ENGINEER NUCLEAR EQUIPMENT Row Name 01/26/25 1305 Time Calculation- TEST ENGINEER NUCLEAR EQUIPMENT TEST ENGINEER NUCLEAR EQUIPMENT Start Time 1030 -RS TEST ENGINEER NUCLEAR EQUIPMENT Received On 01/26/25 -RS Untimed Charges 29574-FZ Eval Speech and Production w/ Language Minutes 25 -RS 15386-XI Eval Oral Pharyng Swallow Minutes 40 -RS Total Minutes Untimed Charges Total Minutes 65 -RS Total Minutes 65 -RS User Thompson (r) = Recorded By, (t) = Taken By, (c) = Cosigned By Initials Name Provider Type RS Nic Martin MS CCC-TEST ENGINEER NUCLEAR EQUIPMENT Speech and Language Pathologist Therapy Charges for Today Code Description Service Date Service Provider Modifiers Qty [id number] HC ST EVAL ORAL PHARYNG SWALLOW 3 01/26/2025 Nic Martin MS CCC-SLP GN [id number] EVAL SPEECH AND PROD W [...] with family Patient/Family Anticipated Services at Transition rehabilitation case coordinatorchef manager Anticipated family or friend will provide [...] initiate discharge planning. Confirmed their residence in [facility]; PCP is Connor Gomez; primary insurance is Medicare and secondary is Zi (spouse to bring card to registration). Patient reported to have prescription drug coverage and uses [facility] in [place]. Patient reported to be independent with ADLs and mobility prior to admission; no DME or home health services utilized. Discharge goal is home. Case Management will continue to follow and assist with discharge plan. Continued Care and Services - Admitted Since 01/26/2025 No active coordination exists. Demographic Summary Row Name 01/26/25 1229 General Information Referral Source admission list Reason for Consult discharge planning Preferred Language Austrian Contact Information Permission Granted to Share Info With rehabilitation case coordinatorbiomass plant manager Status Row Name 01/26/25 1231 Functional [...] total knee replacement, right Chronic pain syndrome [facility] prescription opiate use Chronic arthritis associated with [...] resulted in removal iof 13 precancer[address] 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 History of falls. -KF Existing Precautions/Restrictions fall;other (see comments) torres -KF Barriers to Rehab medically complex;previous functional deficit -KF Row Name 01/26/25 1316 Living Environment Current Living Arrangements home -KF People in Home spouse -KF Row Name 01/26/25 131 Home Main Entrance Number of Stairs, Main Entrance other (see comments) Pt reports she does have stairs at home, but was unsure how many. -KF Row Name 01/26/25 1318 Cognition Orientation Status (Cognition) oriented x 3 -KF Row Name 01/26/25 2922 Safety Issues/Impairments Affecting Functional Mobility Safety Issues [...] Bed Mobility Bed Mobility supine-sit -KF Supine-Sit [place] (Bed Mobility) standby assist - Assistive Device (Bed Mobility) bed rails;head of bed elevated -KF Comment, (Bed Mobility) Cues for sequence and safety awareness. Pt impulsively moving toward EOB prior to line management being completed. - Row Name 01/26/251315 Transfers Transfers sit-stand transfer;stand-sit transfer - Row Name 01/26/251315 Sit-Stand Transfer Sit-Stand [place] (Transfers) minimum assist (75% patient effort);2 person assist;verbal cues - Assistive Device (Sit-Stand Transfers) walker, front-wheeled -KF Comment, (Sit-Stand Transfer) x1 from EOB - Row Name 01/26/251315 Stand-Sit Transfer Stand-Sit [place] (Transfers) minimum assist (75% patient effort);2 person assist;verbal cues - Assistive Device (Stand-Sit Transfers) walker, front-wheeled - Row Name 01/26/25 131 Functional Mobility Functional Mobility- Ind. Level minimum [...] able to Ambulate yes - Row Name 01/26/25 1316 Activities of Daily Living BADL Assessment/Intervention upper body dressing;lower body dressing;feeding - Row Name 01/26/25 1316 Upper Body Dressing Assessment/Training [place] Level (Upper Body Dressing) don;doff;front opening garment;moderate assist (50% patient effort) -KF Position (Upper Body Dressing) edge of bed sitting;unsupported sitting - Row Name 01/26/25 1316 Lower Body Dressing Assessment/Training [place] Level (Lower Body Dressing) don;socks;dependent (less than 25% patient effort) -KF Position (Lower Body Dressing) edge of bed sitting - Row Name 01/26/25 1316 Self-Feeding Assessment/Training [place] Level (Feeding) liquids to mouth;maximum assist (25% patient effort);set up - Position (Feeding) supported sitting - User Thompson (r) = Recorded By, (t) = Taken By, (c) = Cosigned By Initials Name Provider Type Shelly Lam OT Occupational Therapist Obj/Interventions Row Name 01/26/25 1318 Sensory Assessment (Somatosensory) Sensory Assessment (Somatosensory) UE sensation intact -[facility] Name 01/26/25 1318 Vision Assessment/Intervention Visual Impairment/Limitations WFL -[facility] Name 01/26/25 1318 Range of Motion Comprehensive General Range of Motion bilateral upper extremity ROM WF -[facility] Name 01/26/25 1318 Strength Comprehensive (MMT) General Manual Muscle Testing (MMT) Assessment upper extremity strength deficits identified -[facility] Name 01/26/25 1318 Upper Extremity (Manual Muscle Testing) Comment, MMT: Upper Extremity BUE at least 3+/5, formal assessment limited by pt impulsivity - Row Name 01/26/25 1318 Motor Skills Motor Skills coordination - Coordination bilateral;upper extremity;fine motor deficit;WFL -[facility] Name 01/26/25 1318 Balance Balance Assessment sitting [...] Cosigned By Initials Name Provider Type Shelly Lam OT Occupational Therapist Goals/Plan Row Name 01/26/25 1321 Transfer Goal 1 (OT) Activity/Assistive Device (Transfer Goal 1, OT) wdp-xj-widse/gwqaz-ia-jnm;commode -KF [place] Level/Cues Needed (Transfer Goal 1, OT) standby assist -KF Time Frame (Transfer Goal 1, OT) termite technician goal (LTG);10 days -KF Progress/Outcome (Transfer Goal 1, OT) new goal -KF Row Name 01/26/25 1321 Dressing Goal 1 (OT) Activity/Device (Dressing Goal 1, OT) upper body dressing;lower body dressing -KF [place]/Cues Needed (Dressing Goal 1, OT) standby assist -KF Time Frame (Dressing Goal 1, OT) short term goal (STG);5 days -KF Strategies/Barriers (Dressing Goal 1, OT) ADL AE PRN -KF Progress/Outcome (Dressing Goal 1, OT) new goal -KF Row Name 01/26/25 1321 Grooming Goal 1 (OT) Activity/Device (Grooming Goal 1, OT) hair care;oral care;wash face, hands -KF [place] (Grooming Goal 1, OT) standby assist -KF Time Frame (Grooming Goal 1, OT) fpc goal (LTG);10 days -KF Strategies/Barriers (Grooming Goal [...] Cosigned By Initials Name Provider Type Shelly Lam OT Occupational Therapist Clinical Impression Row Name 01/26/25 1319 Pain Assessment Pretreatment Pain Rating 10/10 -KF [...] pt progress closely. -KF Row Name 01/26/25 1319 Therapy Assessment/Plan (OT) Patient/Family Therapy Goal Statement (OT) Return home -KF Rehab Potential (OT) good -KF Criteria for Skilled Therapeutic Interventions Met (OT) yes;skilled treatment is necessary -KF Therapy Frequency (OT) daily -KF Predicted Duration of Therapy Intervention (OT) 10 days -KF Row Name 01/26/25 1319 Therapy Plan Review/Discharge Plan (OT) Anticipated Discharge Disposition (OT) retirement facility -KF Row Name 01/26/25 1319 Vital [...] By Initials Name Provider Type Shelly Lam, OT Occupational Therapist Outcome Measures Row Name [...] -KF AM-PAC 6 Clicks Score (OT) 14 - Row Name 01/26/25 0800 01/26/25 0230 How [...] arms (e.g., wheelchair, bedside chair)? 2 - 2 -REGI Climbing 3-5 steps with a railing? 2 -JW 2 -REGI To walk in hospital room? 2 -JW 2 -REGI AM-PAC 6 Clicks Score (PT) 12 - 12 - Row Name 01/26/25 1321 Modified Mclean Scale Pre-Stroke Modified Mclean Scale 6 - Unable to determine (UTD) from the medical record documentation - Modified Mclean Scale 4 - Moderately severe disability. Unable to walk without assistance, and unable to attend to own bodily needs without assistance. - Row Name 01/26/25 1321 Functional Assessment Outcome Measure Options AM-PAC 6 Clicks Daily Activity (OT);Modified Mclean -KF User Thompson (r) = Recorded By, (t) = Taken By, (c) = Cosigned By Initials Name Provider Type Lainey Zaman, SPENCER Registered Nurse Shelly Lam OT Occupational Therapist Minnie Solomon, SPENCER Registered Nurse Occupational Therapy Education Title: PT OT TEST ENGINEER NUCLEAR EQUIPMENT Therapies (In Progress) Topic: Occupational Therapy (In Progress) Point: ADL training (In Progress) Learning Progress Summary Patient Acceptance, TB,E, NR by at 01/26/2025 1144 Point: Precautions (In Progress) Learning Progress Summary Patient Acceptance, TB,E, NR by VINITA at 01/26/2025 1144 Point: Body mechanics (In Progress) Learning Progress Summary Patient Acceptance, TB,E, NR by at 01/26/2025 1144 User Thompson Initials Effective Dates Name Provider Type Discipline 11/08/22 - Shelly Saleem OT Occupational Therapist [...] Description Service Date Service Provider Modifiers Qty [id number] HC OT EVAL MOD COMPLEXITY 4 01/26/2025 Shelly [...] total knee replacement, right Chronic pain 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 Lighting Adviser Dr Connor Jose (retired, [place], [place]), advised stringent lifelong avoidance of all [...] RIGHT; Surgeon: Bautista Luis MD; Location: [facility]; Service: Orthopedics TUBAL ABDOMINAL LIGATION 1989 General Information Row Name 01/26/25 1328 Physical Therapy Time and Intention Document Type evaluation -TT Mode of Treatment physical therapy;co-treatment -TT Row Name 01/26/25 1328 General Information Patient Profile Reviewed yes -TT Prior Level of Function independent:;all household mobility;community mobility;ADL's;driving Pt is somewhat questionnable historian, Rollator at baseline. Noting history of falls, unable to describe -TT Existing Precautions/Restrictions fall;other (see comments) Torres -TT Barriers to Rehab medically complex;previous functional deficit -TT Row Name 01/26/25 1328 Living Environment Current Living Arrangements home -TT [...] PT Physical Therapist Mobility Row Name 01/26/25 133 Bed Mobility Bed Mobility supine-sit -TT Supine-Sit [place] (Bed Mobility) standby assist -TT Assistive Device (Bed Mobility) bed rails;head of bed elevated -TT Comment, (Bed Mobility) Cues for improved sequencing and safety awareness. Impulsively attempting to transition to EOb prior to appropriate line management requiring frequent cues. -TT Row Name 01/26/25 133 Transfers Comment, (Transfers) STS from EOB w/ FWW. -TT Row Name 01/26/25 133 Sit-Stand Transfer Sit-Stand [place] (Transfers) minimum assist (75% patient effort);2 person assist;verbal cues -TT Assistive Device (Sit-Stand Transfers) walker, front-wheeled -TT Comment, (Sit-Stand Transfer) Cues for UE placement and improved initiation. Physical assistance d/t impaired initiation and unsteadiness. W/ return to sitting, cues for improved AD management and eccentric control. -TT Row Name 01/26/25 1331 Gait/Stairs (Locomotion) [place] Level (Gait) nonverbal cues (demo/gesture);verbal cues;minimum assist [...] Type TT Dinora Huston, PT Physical Therapist Obj/Interventions Row Name 01/26/25 1332 Range of Motion Comprehensive General Range of Motion bilateral lower extremity ROM WFL -TT Row Name 01/26/25 1980 Strength Comprehensive (MMT) General Manual Muscle Testing (MMT) Assessment lower extremity strength deficits identified -TT Comment, General Manual Muscle Testing (MMT) Assessment BLE grossly 4/5 observed w/ functional mobility -TT Row Name 01/26/25 133 Balance Balance Assessment sitting static balance;sitting dynamic [...] task;weight shifting activity -TT Row Name 01/26/25 4445 Sensory Assessment (Somatosensory) Sensory Assessment (Somatosensory) LE sensation intact -TT User Thompson (r) = Recorded By, (t) = Taken By, (c) = Cosigned By Initials Name Provider Type TT Dinora Huston PT Physical Therapist Goals/Plan Row Name 01/26/25 3861 Bed Mobility Goal 1 (PT) Activity/Assistive Device (Bed Mobility Goal 1, PT) sit to supine/supine to sit -TT [place] Level/Cues Needed (Bed Mobility Goal 1, PT) independent -TT Time Frame (Bed Mobility Goal 1, PT) short term goal (STG);4 days -TT Progress/Outcomes (Bed Mobility Goal 1, PT) new goal -TT Row Name 01/26/25 0559 Transfer Goal 1 (PT) Activity/Assistive Device (Transfer Goal 1, PT) iwy-bl-uyzlo/ntlor-iy-dwv;vop-fb-sdhty/srdth-lj-llb-TT [place] Level/Cues Needed (Transfer Goal 1, PT) modified independence -TT Time Frame (Transfer Goal 1, PT) termite technician goal (LTG);10 days -TT Progress/Outcome (Transfer Goal 1, PT) new goal -TT Row Name 01/26/25 4440 Gait Training Goal 1 (PT) Activity/Assistive Device (Gait Training Goal 1, PT) gait (walking locomotion);decrease fall risk;increase endurance/gait distance -TT [place] Level (Gait Training Goal 1, PT) modified independence -TT Distance (Gait Training Goal 1, PT) 250ft -TT Time Frame (Gait Training Goal 1, PT) fpc goal (LTG);10 days -TT Progress/Outcome (Gait Training Goal 1, PT) new goal -TT Row Name 01/26/25 1684 Therapy Assessment/Plan (PT) Planned Therapy Interventions (PT) balance training;bed mobility training;gait training;home exercise program;patient/family education;postural re- education;stair training;strengthening;transfer training -TT User Thompson (r) = Recorded By, (t) = Taken By, (c) = Cosigned By Initials Name Provider Type TT Tenfelde, Dinora, PT Physical Therapist Clinical Impression Row Name 01/26/25 1335 Pain Pretreatment Pain Rating 10 -TT Posttreatment Pain Rating 10 -TT Pain Side/Orientation generalized -TT Pain Management Interventions activity modification encouraged;exercise or physical activity utilized;nursing notified;positioning techniques utilized -TT Response to Pain Interventions no change per patient report -TT Row Name 01/26/25 1335 Plan of Care Review Plan of Care [...] closely monitor pt's progress.-TT Row Name 01/26/25 5767 Therapy Assessment/Plan (PT) Patient/Family Therapy Goals Statement [...] Patient Position Sitting -TT Row Name 01/26/25 5783 Positioning and Restraints Pre-Treatment Position in bed [...] Row Name 01/26/25 1338 01/26/25 1321 Modified Dimitry Scale Pre-Stroke Modified Dimitry Scale [...] Options AM-PAC 6 Clicks Basic Mobility (PT);Modified Mclean -TT AM-PAC 6 Clicks Daily Activity (OT);Modified Mclean -KF User Thompson (r) = Recorded By, (t) = Taken By, (c) = Cosigned By Initials Name Provider Type JW Lainey Zaman, RN Registered Nurse KF Shelly Saleem, OT Occupational Therapist Minnie Solomon, SPENCER Registered Nurse TT Dinora Huston, PT Physical Therapist Physical Therapy Education Title: PT OT TEST ENGINEER NUCLEAR EQUIPMENT Therapies (In Progress) Topic: Physical Therapy (In Progress) Point: Mobility training (In Progress) Learning Progress Summary Patient Acceptance, E, NR by TT at 01/26/2025 1339 Point: Home exercise program (Not Started) Learner Progress: Not documented in this visit. Point: Body mechanics (In Progress) Learning Progress Summary Patient Acceptance, E, NR by TT at 01/26/2025 1339 Point: Precautions (In Progress) Learning Progress Summary Patient Acceptance, E, NR by TT at 01/26/2025 1339 User Thompson Initials Effective Dates Name Provider Type Discipline TT 08/29/24 - Dinora Huston, KELLEY Physical Therapist PT PT Recommendation and Plan [...] moderate complexity PT Charges Row Name 01/26/25 1339 Time Calculation Start Time 1144 -TT PT [...] Description Service Date Service Provider Modifiers Qty [id number] HC PT EVAL MOD COMPLEXITY 4 01/26/2025 Dinora Huston, PT GP 1 PT G-Codes Outcome Measure Options: AM-PAC 6 Clicks Basic Mobility (PT), Modified Dimitry AM-PAC 6 Clicks Score (PT): 17 AM-PAC 6 Clicks Score (OT): 14 Modified Mclean Scale: 4 - Moderately severe disability. Unable to walk without assistance, and unable to attend to own bodily needs without assistance. PT Discharge Summary Anticipated Discharge Disposition (PT): retirement facility Dinora Huston PT 01/26/2025 documented in [...] * Telemetry Scan (01/29/2025 2:57 AM EDT) [facility] Onbase ECG ORDERABLES Final Result * Potassium (01/28/2025 9:51 PM EDT) Potassium 3.8 3.5 - 5.2 mmol/L 01/28/2025 10:10 PM EDT [facility] Blood Venipuncture / Unknown 01/28/2025 9:51 PM EDT 01/28/2025 9:57 PM EDT Jessica Alejandro Valdovinos DO LAB BLOOD ORDERABLES F inal Result [facility]
[address] [place] [address], * (ABNORMAL) CBC (No Diff) (01/28/2025 10:34 AM EDT) WBC 12.20(H) 3.40 - 10.80 10*3/mm3 01/28/2025 11:45 AM EDT [facility] RBC 3.86 3.77 - 5.28 10*6/mm3 01/28/2025 11:45 AM EDT [facility] Hemoglobin 11.6(L) 12.0 - 15.9 g/dL 01/28/2025 11:45 AM EDT [facility] Hematocrit 35.5 34.0 - 46.6 % 01/28/2025 11:45 AM EDT [facility] MCV 92.0 79.0 - 97.0 fL 01/28/2025 11:45 AM EDT [facility] MCH 30.1 26.6 - 33.0 pg 01/28/2025 11:45 AM EDT [facility] MCHC 32.7 31.5 - 35.7 g/dL 01/28/2025 11:45 AM EDT [facility] RDW 13.5 12.3 - 15.4 % 01/28/2025 11:45 AM EDT [facility] RDW-SD 46.2 37.0 - 54.0 fl 01/28/2025 11:45 AM EDT [facility] MPV 9.6 6.0 - 12.0 fL 01/28/2025 11:45 AM EDT [facility] Platelets 301 140 - 450 10*3/mm3 01/28/2025 11:45 AM EDT [facility] Blood Venipuncture / Unknown 01/28/2025 10:34 AM EDT 01/28/2025 11:41 AM EDT us Andrew Barkley MD LAB BLOOD ORDERABLES Final R esult [facility]
[address] [place] [address], * (ABNORMAL) Basic Metabolic Panel (01/28/2025 10:34 AM EDT) Glucose 117(H) 65 - 99 mg/dL 01/28/2025 12:14 PM EDT [facility] BUN 6.4(L) 8.0 - 23.0 mg/dL 01/28/2025 12:14 PM EDT [facility] Creatinine 0.85 0.57 - 1.00 mg/dL 01/28/2025 12:14 PM EDT [facility] Sodium 139 136 - 145 mmol/L 01/28/2025 12:14 PM EDT [facility] Potassium 3.3(L) 3.5 - 5.2 mmol/L 01/28/2025 12:14 PM EDT [facility] Chloride 103 98 - 107 mmol/L 01/28/2025 12:14 PM EDT [facility] CO2 20.6(L) 22.0 - 29.0 mmol/L 01/28/2025 12:14 PM EDT [facility] Calcium 8.8 8.6 - 10.5 mg/dL 01/28/2025 12:14 PM EDT [facility] BUN/Creatinine Ratio 7.5 7.0 - 25.0 01/28/2025 12:14 PM EDT [facility] Anion Gap 15.4(H) 5.0 - 15.0 mmol/L 01/28/2025 12:14 PM EDT [facility] eGFR 72.4 >60.0 mL/min/1.7 3 01/28/2025 12:14 PM EDT [facility] Blood Venipuncture / Unknown 01/28/2025 10:34 AM EDT 01/28/2025 11:41 AM EDT Narrative [facility] - 01/28/2025 12:14 PM EDT GFR [...] MD LAB BLOOD ORDERABLES Final R esult [facility]
[address] [place] [address], * Telemetry Scan (01/28/2025 8:20 AM EDT) [facility] Final Result * Potassium (01/27/2025 6:45 PM EDT) Potassium 3.8 3.5 - 5.2 mmol/L 01/27/2025 7:27 PM EDT [facility] Comment:Specimen hemolyzed. Result may be falsely elevated. Blood Venipuncture / Unknown 01/27/2025 6:45 PM EDT 01/27/2025 7:06 PM EDT Andrew Barkley MD LAB BLOOD ORDERABLES Final R esult [facility]
[address] [place] [address], * (ABNORMAL) Basic Metabolic Panel (01/27/2025 4:54 AM EDT) Glucose 92 65 - 99 mg/dL 01/27/2025 5:36 AM EDT [facility] LABORATORY BUN 10.9 8.0 - 23.0 mg/dL 01/27/2025 5:36 AM EDT [facility] Creatinine 0.96 0.57 - 1.00 mg/dL 01/27/2025 5:36 AM EDT [facility] Sodium 141 136 - 145 mmol/L 01/27/2025 5:36 AM EDT [facility] Potassium 3.2(L) 3.5 - 5.2 mmol/L 01/27/2025 5:36 AM EDT [facility] Chloride 107 98 - 107 mmol/L 01/27/2025 5:36 AM EDT [facility] CO2 22.6 22.0 - 29.0 mmol/L 01/27/2025 5:36 AM EDT [facility] Calcium 8.6 8.6 - 10.5 mg/dL 01/27/2025 5:36 AM EDT [facility] BUN/Creatinine Ratio 11.4 7.0 - 25.0 01/27/2025 5:36 AM EDT [facility] Anion Gap 11.4 5.0 - 15.0 mmol/L 01/27/2025 5:36 AM EDT [facility] eGFR 62.6 >60.0 mL/min/1.7 3 01/27/2025 5:36 AM EDT [facility] Blood Venipuncture / Unknown 01/27/2025 4:54 AM EDT 01/27/2025 5:02 AM EDT [facility] LABORATORY - 01/27/2025 5:36 AM EDT GFR [...] include race as a factor Maru Martinez SUPERVISOR DOG LICENSE OFFICER LAB BLOOD ORDERABLES Final Result [facility]
[address] [place] [address], * (ABNORMAL) CBC (No Diff) (01/27/2025 4:54 AM EDT) WBC 9.35 3.40 - 10.80 10*3/mm3 01/27/2025 5:32 AM EDT [facility] Comment:Result checked RBC 3.40(L) 3.77 - 5.28 10*6/mm3 01/27/2025 5:32 AM EDT [facility] Hemoglobin 10.2(L) 12.0 - 15.9 g/dL 01/27/2025 5:32 AM EDT [facility] Hematocrit 32.3(L) 34.0 - 46.6 % 01/27/2025 5:32 AM EDT [facility] MCV 95.0 79.0 - 97.0 fL 01/27/2025 5:32 AM EDT [facility] MCH 30.0 26.6 - 33.0 pg 01/27/2025 5:32 AM EDT [facility] MCHC 31.6 31.5 - 35.7 g/dL 01/27/2025 5:32 AM EDT [facility] RDW 13.8 12.3 - 15.4 % 01/27/2025 5:32 AM EDT [facility] RDW-SD 47.9 37.0 - 54.0 fl 01/27/2025 5:32 AM EDT [facility] MPV 9.1 6.0 - 12.0 fL 01/27/2025 5:32 AM EDT [facility] Platelets 226 140 - 450 10*3/mm3 01/27/2025 5:32 AM EDT [facility] Blood Venipuncture / Unknown 01/27/2025 4:54 AM EDT 01/27/2025 5:02 AM EDT Maru Martinez SUPERVISOR DOG LICENSE OFFICER LAB BLOOD ORDERABLES Final Result [facility]
[address] [place] [address], * MRI Brain With Contrast (01/27/2025 1:28 AM EDT) Anatomical Region Laterality Modality Head, Neck N/A Magnetic Resonan ce 01/27/2025 2:00 AM EDT Impressions 01/27/2025 2:05 AM EDT Impression: No pathologic contrast enhancement. 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 Electronically Signed: Jesus Peterson MD 01/27/2025 2:05 AM EDT Workstation ID: [id number] Narrative 01/27/2025 2:05 AM EDT MRI BRAIN [...] MD 01/27/2025 2:05 AM EDT Workstation ID: [id number] us Adama Maher MD IMG MRI ORDERABLES Final Result * POC Glucose Once (01/26/2025 5:38 PM EDT) Glucose 91 70 - 130 mg/dL 01/26/2025 5:40 PM EDT [facility] Comment:Serial Number: [id number]: [id number] Nova Comment 1 Follow unit protocol 01/26/2025 5:40 PM EDT [facility] Blood 01/26/2025 5:38 PM EDT 01/26/2025 5:40 PM EDT Andrew Barkley MD POINT OF CARE TEST ORDERABLE S Final Result [facility]
[address] [place] [address], * POC Glucose Once (01/26/2025 12:19 PM EDT) Glucose 98 70 - 130 mg/dL 01/26/2025 12:22 PM EDT [facility] Comment:Serial Number: [id number]: [id number] Amber Comment 1 Follow unit protocol 01/26/2025 12:22 PM EDT [facility] Blood 01/26/2025 12:1 9 PM EDT 01/26/2025 12:22 PM EDT us Andrew Barkley MD POINT OF CARE TEST ORDERABLE S Final Result [facility]
[address] [place] [address], * ECHO COMPLETE W/ DOPPLER AND COLOR [...] - 2.0 mmol/L 01/26/2025 11:33 AM EDT [facility] Comment:Falsely depressed re sults may occur on samples drawn from patients receiving N-Acetylcysteine (NAC) or Metamizole. Blood Venipuncture / Unknown 01/26/2025 10:44 AM EDT 01/26/2025 11:00 AM EDT Maru Martinez SUPERVISOR DOG LICENSE OFFICER LAB BLOOD ORDERABLES Final Result [facility]
[address] [place] [address], * (ABNORMAL) STAT Lactic Acid, Reflex (01/26/2025 6:51 AM EDT) Lactate 2.2(HH) 0.5 - 2.0 mmol/L 01/26/2025 7:24 AM EDT [facility] Comment:Falsely depressed re sults may occur on samples drawn from patients receiving N-Acetylcysteine (NAC) or Metamizole. Blood Structure of right upper limb / Unknown Venipuncture / Unknown 01/26/2025 6:51 AM EDT 01/26/2025 6:59 AM EDT Maru Martinez SUPERVISOR DOG LICENSE OFFICER LAB BLOOD ORDERABLES Final Result Performing Organization Address [facility] Co de Phone Number [facility]
[address] [place] [address], * (ABNORMAL) Vancomycin, Random (01/26/2025 6:51 AM EDT) Vancomycin Random 42.10(HH) 5.00 - 40.00 mcg/mL 01/26/2025 7:53 AM EDT [facility] Blood Structure of right upper limb / Unknown Venipuncture / Unknown 01/26/2025 6:51 AM EDT 01/26/2025 7:01 AM EDT Narrative [facility] - 01/26/2025 7:53 AM EDT Therapeutic Ranges for Vancomycin Vancomycin Random 5.0-40.0 mcg/mL Vancomycin Trough 5.0-20.0 mcg/mL Vancomycin Peak 20.0-40.0 mcg/mL Aline CernaD LAB BLOOD ORDERABLES Final R esult Performing Organization Address City/[facility] Co de Phone Number [facility]
[address] [place] [address], * (ABNORMAL) Hemoglobin A1c (01/26/2025 6:51 AM EDT) Hemoglobin A1C 5.67(H) 4.80 - 5.60 % 01/26/2025 8:56 AM EDT [facility] Blood Structure of right upper limb / Unknown Venipuncture / Unknown 01/26/2025 6:51 AM EDT 01/26/2025 7:01 AM EDT Narrative [facility] - 01/26/2025 8:56 AM EDT Hemoglobin A1C Ranges: Increased Risk for Diabetes 5.7% to 6.4% Diabetes >= 6.5% Diabetic Goal < 7.0% Rayshawn Hercules PA-C LAB BLOOD ORDERABLE S Final Result [facility]
[address] [place] [address], [place] [phone] * EEG AWAKE OR ASLEEP PORTABLE (01/26/2025 6:30 AM EDT) Impressions NEUROLOGY - 01/26/2025 8:58 AM EDT Diffuse cerebral dysfunction of at least mild degree, nonspecific but most commonly seen due to toxic/metabolic cause No ongoing seizures are present This report is transcribed using the [employer] dictation system. Narrative NEUROLOGY - 01/26/2025 8:58 [...] Hercules PA-C NEUROLOGY ORDERABLE S Final Result Performing Organization Address City/[facility]/ZIP Co de Phone Number NEUROLOGY * MRI Brain Without Contrast (01/26/2025 [...] - 130 mg/dL 01/26/2025 5:23 AM EDT [facility] Comment:Serial Number: [id number]: [id number] Blood 01/26/2025 5:20 AM EDT 01/26/2025 5:23 AM EDT Rayshawn Baldwin MD POINT OF CARE TEST ORDERABLE S Final Result [facility]
[address] [place] [id number], * (ABNORMAL) High Sensitivity Troponin T 1Hr (01/26/2025 3:28 AM EDT) HS Troponin T 22(H) <14 ng/L 01/26/2025 3:57 AM EDT [facility] Troponin T Numeric Delta -1 ng/L 01/26/2025 3:57 AM EDT [facility] Troponin T % Delta -4 Abnormal if >/= 20% 01/26/2025 3:57 AM EDT [facility] Blood Line / Unknown 01/26/2025 3: 28 AM EDT 01/26/2025 3:37 AM EDT Narrative [facility] - 01/26/2025 3:57 AM EDT High [...] to an underlying chronic condition. Maru Martinez [facility] LAB BLOOD ORDERABLES Final Result [facility]
[address] [place] [address], * ECG 12 Lead QT Measurement (01/26/2025 3:10 AM EDT) QT Interval 340 ms ECG QTC Interval 478 ms ECG 01/26/2025 3:10 AM EDT 01/26/2025 8:10 AM EDT Narrative BH ECG - 01/26/2025 8:10 AM EDT Test [...] significant change was found Confirmed by NEERAJ DALAL MD ([id number]) on 01/26/2025 8:10:43 AM Referred By: Confirmed By: NEERAJ DALAL MD Procedure Note Neeraj Dalal MD - 01/26/2025 Test Reason : QT [...] significant change was found Confirmed by NEERAJ DALAL MD ([id number]) on 01/26/2025 8:10:43 AM Referred By: Confirmed By: NEERAJ DALAL MD Maru Martinez SUPERVISOR DOG LICENSE OFFICER ECG ORDERABLES Final Resu lt ECG * (ABNORMAL) Urinalysis, Microscopic Only - Indwelling Urethral Catheter (01/26/2025 2:57 AM EDT) RBC, UA 6-10(A) None Seen, 0-2 /HPF 01/26/2025 3:25 AM EDT [facility] WBC, UA 11-20(A) None Seen, 0-2 /HPF 01/26/2025 3:25 AM EDT [facility] Bacteria, UA None Seen None Seen /HPF 01/26/2025 3:25 AM EDT [facility] Squamous Epithelial Cells, UA 0-2 None Seen, 0-2 /HPF 01/26/2025 3:25 AM EDT [facility] Hyaline Casts, UA None Seen None Seen /LPF 01/26/2025 3:25 AM EDT [facility] Methodology Automated Microscopy 01/26/2025 3:25 AM EDT [facility] Urine (Indwelling Urethral Catheter) Collection / Unknown 01/26/2025 2:57 AM EDT 01/26/2025 3:13 AM EDT Maru Sarabjit Juan SUPERVISOR DOG LICENSE OFFICER URINE ORDERABLES Final Res ult Performing Organization Address [facility] de Phone Number [facility]
[address] [place] [address], * Fentanyl, Urine - Indwelling Urethral Catheter (01/26/2025 2:57 AM EDT) Fentanyl, Urine Negative Negative 01/26/2025 3:40 AM EDT [facility] Urine (Indwelling Urethral Catheter) Collection / Unknown 01/26/2025 2:57 AM EDT 01/26/2025 3:13 AM EDT Narrative [facility] - 01/26/2025 3:40 AM EDT Negative [...] particularly when unconfirmed results are used. Maru Mratinez APRN URINE ORDERABLES Final Res ult Performing Organization Address [facility] Co de Phone Number [facility]
[address] [place] [address], [place] [phone] * (ABNORMAL) Urine Drug Screen - Indwelling Urethral Catheter (01/26/2025 2:57 AM EDT) THC, Screen, Urine Negative Negative 2024 3:27 AM EDT [facility] Phencyclidine (PCP), Urine Negative Negative 01/26/2025 3:27 AM EDT [facility] Cocaine Screen, Urine Negative Negative 01/26/2025 3:27 AM EDT [facility] Methamphetamine, Ur Negative Negative 01/26/2025 3:27 AM EDT [facility] Opiate Screen Negative Negative 01/26/2025 3:27 AM EDT [facility] Amphetamine Screen, Urine Negative Negative 01/26/2025 3:27 AM EDT [facility] Benzodiazepine Screen, Urine Negative Negative 01/26/2025 3:27 AM EDT [facility] Tricyclic Antidepressants Screen Positive(A) Negative 01/26/2025 3:27 AM EDT [facility] Methadone Screen, Urine Negative Negative 01/26/2025 3:27 AM EDT [facility] Barbiturates Screen, Urine Negative Negative 01/26/2025 3:27 AM EDT [facility] Oxycodone Screen, Urine Positive(A) Negative 01/26/2025 3:27 AM EDT [facility] Buprenorphine, Screen, Urine Negative Negative 01/26/2025 3:27 AM T [facility] Urine (Indwelling Urethral Catheter) Collection / Unknown 01/26/2025 2:57 AM EDT 01/26/2025 3:13 AM EDT [facility] - 01/26/2025 3:27 AM EDT Cutoff [...] unconfirmed results are used. us Maru Martinez SUPERVISOR DOG LICENSE OFFICER URINE ORDERABLES Final Res ult [facility]
[address] [place] [address], [place] [phone] * (ABNORMAL) Urinalysis With Microscopic If Indicated (No Culture) - Indwelling Urethral Catheter (01/26/2025 2:57 AM EDT) Color, UA Yellow Yellow, Straw 01/26/2025 3:25 AM EDT [facility] Appearance, UA Clear Clear 01/26/2025 3:25 AM EDT [facility] pH, UA 5.5 5.0 - 8.0 01/26/2025 3:25 AM EDT [facility] Specific [place], UA >1.030(H) 1.005 - 1.030 01/26/2025 3:25 AM EDT [facility] Glucose, UA Negative Negative 01/26/2025 3:25 AM EDT [facility] Ketones, UA Negative Negative 01/26/2025 3:25 AM EDT [facility] Bilirubin, UA Negative Negative 01/26/2025 3:25 AM EDT [facility] Blood, UA Moderate (2+)(A) Negative 01/26/2025 3:25 AM EDT [facility] Protein, UA Trace(A) Negative 01/26/2025 3:25 AM EDT [facility] Leuk Esterase, UA Small (1+)(A) Negative 01/26/2025 3:25 AM EDT [facility] Nitrite, UA Negative Negative 01/26/2025 3:25 AM EDT [facility] Urobilinogen, UA 0.2 E.U./dL 0.2 - 1.0 E.U./dL 01/26/2025 3:25 AM EDT [facility] Urine (Indwelling Urethral Catheter) Collection / Unknown 01/26/2025 2:57 AM EDT 01/26/2025 3:13 AM EDT us Maru Martinez SUPERVISOR DOG LICENSE OFFICER URINE ORDERABLES Final Res ult Performing Organization Address City/[facility]/ZIP Co de Phone Number [facility]
[address] [place] [address], * (ABNORMAL) POC Glucose Once (01/26/2025 2:38 AM EDT) Glucose 150(H) 70 - 130 mg/dL 01/26/2025 5:06 AM EDT [facility] Comment:Serial Number: [id number]: [id number] Blood 01/26/2025 2:38 AM EDT 01/26/2025 5:06 AM EDT Rayshawn Baldwin MD POINT OF CARE TEST ORDERABLE S Final Result Performing Organization Address [facility] Co de Phone Number [facility]
[address] [place] [address], * LSAC Slide Creation (01/26/2025 2:09 AM EDT) Blood Line / Unknown 01/26/2025 2: 09 AM EDT 01/26/2025 2:20 AM EDT Maru Martinez SUPERVISOR DOG LICENSE OFFICER LAB BLOOD ORDER ONLY Final Result Performing Organization Address [facility] Co de Phone Number [facility]
[address] [place] [address], * (ABNORMAL) CBC Auto Differential (01/26/2025 2:09 AM EDT) WBC 18.88(H) 3.40 - 10.80 10*3/mm3 01/26/2025 2:48 AM EDT [facility] RBC 3.98 3.77 - 5.28 10*6/mm3 01/26/2025 2:48 AM EDT [facility] Hemoglobin 11.6(L) 12.0 - 15.9 g/dL 01/26/2025 2:48 AM EDT [facility] Hematocrit 35.6 34.0 - 46.6 % 01/26/2025 2:48 AM EDT [facility] MCV 89.4 79.0 - 97.0 fL 01/26/2025 2:48 AM EDT [facility] MCH 29.1 26.6 - 33.0 pg 01/26/2025 2:48 AM EDT [facility] MCHC 32.6 31.5 - 35.7 g/dL 01/26/2025 2:48 AM EDT [facility] RDW 13.6 12.3 - 15.4 % 01/26/2025 2:48 AM EDT [facility] RDW-SD 45.1 37.0 - 54.0 fl 01/26/2025 2:48 AM EDT [facility] MPV 9.4 6.0 - 12.0 fL 01/26/2025 2:48 AM EDT [facility] Platelets 411 140 - 450 10*3/mm3 01/26/2025 2:48 AM EDT [facility] Blood Line / Unknown 01/26/2025 2: 09 AM EDT 01/26/2025 2:20 AM EDT Maru Martinez SUPERVISOR DOG LICENSE OFFICER LAB BLOOD ORDERABLES Final Result [facility]
[address] [place] [address], * (ABNORMAL) Manual Differential (01/26/2025 2:09 AM EDT) Neutrophil % 81.0(H) 42.7 - 76.0 % 01/26/2025 2:48 AM EDT [facility] Lymphocyte % 9.0(L) 19.6 - 45.3 % 01/26/2025 2:48 AM EDT [facility] Monocyte % 3.0(L) 5.0 - 12.0 % 01/26/2025 2:48 AM EDT [facility] Eosinophil % 0.0(L) 0.3 - 6.2 % 01/26/2025 2:48 AM EDT [facility] Basophil % 0.0 0.0 - 1.5 % 01/26/2025 2:48 AM EDT [facility] Bands % 5.0 0.0 - 5.0 % 01/26/2025 2:48 AM EDT [facility] Atypical Lymphocyte % 2.0 0.0 - 5.0 % 01/26/2025 2:48 AM EDT [facility] Neutrophils Absolute 16.24(H) 1.70 - 7.00 10*3/mm3 01/26/2025 2:48 AM EDT [facility] Lymphocytes Absolute 2.08 0.70 - 3.10 10*3/mm3 01/26/2025 2:48 AM EDT [facility] Monocytes Absolute 0.57 0.10 - 0.90 10*3/mm3 01/26/2025 2:48 AM EDT [facility] Eosinophils Absolute 0.00 0.00 - 0.40 10*3/mm3 01/26/2025 2:48 AM EDT [facility] Basophils Absolute 0.00 0.00 - 0.20 10*3/mm3 01/26/2025 2:48 AM EDT [facility] RBC Morphology Normal Normal 01/26/2025 2:48 AM EDT [facility] WBC Morphology Normal Normal 01/26/2025 2:48 AM EDT [facility] Platelet Morphology Normal Normal 01/26/2025 2:48 AM EDT [facility] Blood Line / Unknown 01/26/2025 2: 09 AM EDT 01/26/2025 2:20 AM EDT us Maru Martinez SUPERVISOR DOG LICENSE OFFICER LAB BLOOD ORDERABLES Final Result [facility]
[address] [place] [address], * TSH Rfx On Abnormal To Free T4 (01/26/2025 2:09 AM EDT) [facility] TSH 1.430 0.270 - 4.200 uIU/mL 01/26/2025 2:50 AM EDT [facility] Blood Line / Unknown 01/26/2025 2: 09 AM EDT 01/26/2025 2:20 AM EDT Maru Martinez SUPERVISOR DOG LICENSE OFFICER LAB BLOOD ORDERABLES Final Result Performing Organization Address City/[facility]/ZIP Co de Phone Number [facility]
[address] [place] [address], * (ABNORMAL) High Sensitivity Troponin T (01/26/2025 2:09 AM EDT) [facility] HS Troponin T 23(H) <14 ng/L 01/26/2025 2:50 AM EDT [facility] Blood Line / Unknown 01/26/2025 2: 09 AM EDT 01/26/2025 2:20 AM EDT Narrative [facility] - 01/26/2025 2:50 AM EDT High [...] to an underlying chronic condition. Maru Martinez SUPERVISOR DOG LICENSE OFFICER LAB BLOOD ORDERABLES Final Result Performing Organization Address City/[facility]/ZIP Co de Phone Number [facility]
[address] [place] [address], * Protime-INR (01/26/2025 2:09 AM EDT) Protime 13.9 12.2 - 15.3 Seconds 01/26/2025 2:56 AM EDT [facility] INR 1.01 0.89 - 1.12 01/26/2025 2:56 AM EDT [facility] Blood Line / Unknown 01/26/2025 2: 09 AM EDT 01/26/2025 2:20 AM EDT Maru Martinez SUPERVISOR DOG LICENSE OFFICER LAB BLOOD ORDERABLES Final Result [facility]
[address] [place] [address], * Procalcitonin (01/26/2025 2:09 AM EDT) Pathologist [facility] Procalcitonin 0.15 0.00 - 0.25 ng/mL 01/26/2025 2:50 AM EDT [facility] Blood Line / Unknown 01/26/2025 2: 09 AM EDT 01/26/2025 2:20 AM EDT Narrative [facility] - 01/26/2025 2:50 AM EDT As [...] Day 4 values are available. Refer to http://www.xjoyae-qvu-yhxmaqfdds.com Change in PCT <=80% A decrease of [...] severe sepsis or septic shock. Maru Martinez SUPERVISOR DOG LICENSE OFFICER LAB BLOOD ORDERABLES Final Result Performing Organization Address City/[facility]/ZIP Co de Phone Number [facility]
[address] [place] [address], * Phosphorus (01/26/2025 2:09 AM EDT) Phosphorus 3.6 2.5 - 4.5 mg/dL 01/26/2025 2:50 AM EDT [facility] Blood Line / Unknown 01/26/2025 2: 09 AM EDT 01/26/2025 2:20 AM EDT Maru Martinez SUPERVISOR DOG LICENSE OFFICER LAB BLOOD ORDERABLES Final Result Performing Organization Address [facility] de Phone Number [facility]
[address] [place] [address], * Magnesium (01/26/2025 2:09 AM EDT) Magnesium 2.1 1.6 - 2.4 mg/dL 01/26/2025 2:50 AM EDT [facility] Blood Line / Unknown 01/26/2025 2: 09 AM EDT 01/26/2025 2:20 AM EDT Maru Martinez SUPERVISOR DOG LICENSE OFFICER LAB BLOOD ORDERABLES Final Result Performing Organization Address [facility] Co de Phone Number [facility]
[address] [place] [address], * (ABNORMAL) Lipid Panel (01/26/2025 2:09 AM EDT) Total Cholesterol 209(H) 0 - 200 mg/dL 01/26/2025 2:50 AM EDT [facility] Triglycerides 149 0 - 150 mg/dL 01/26/2025 2:50 AM EDT [facility] HDL Cholesterol 70(H) 40 - 60 mg/dL 01/26/2025 2:50 AM EDT [facility] LDL Cholesterol 113(H) 0 - 100 mg/dL 01/26/2025 2:50 AM EDT [facility] VLDL Cholesterol 26 5 - 40 mg/dL 01/26/2025 2:50 AM EDT [facility] LDL/HDL Ratio 1.56 01/26/2025 2:50 AM EDT [facility] Blood Line / Unknown 01/26/2025 2: 09 AM EDT 01/26/2025 2:20 AM EDT Narrative [facility] - 01/26/2025 2:50 AM EDT Cholesterol [...] is calculated using the NIH LDL-C calculation. us Maru Martinez SUPERVISOR DOG LICENSE OFFICER LAB BLOOD ORDERABLES Final Result [facility]
[address] [place] [address], * Lipase (01/26/2025 2:09 AM EDT) Pathologist [facility] Lipase 20 13 - 60 U/L 01/26/2025 2:50 AM EDT [facility] Blood Line / Unknown 01/26/2025 2: 09 AM EDT 01/26/2025 2:20 AM EDT Maru Martinez SUPERVISOR DOG LICENSE OFFICER LAB BLOOD ORDERABLES Final Result Performing Organization Address [facility]/ZIP Co de Phone Number [facility]
[address] [place] [address], * (ABNORMAL) Lactic Acid, Plasma (01/26/2025 2:09 AM EDT) [facility] Lactate 2.7(HH) 0.5 - 2.0 mmol/L 01/26/2025 2:45 AM EDT [facility] Comment:Falsely depressed re sults may occur on samples drawn from patients receiving N-Acetylcysteine (NAC) or Metamizole. Blood Line / Unknown 01/26/2025 2: 09 AM EDT 01/26/2025 2:20 AM EDT Maru Martinez SUPERVISOR DOG LICENSE OFFICER LAB BLOOD ORDERABLES Final Result [facility]
[address] [place] [address], * (ABNORMAL) Comprehensive Metabolic Panel (01/26/2025 2:09 AM EDT) Pathologist [facility] Glucose 154(H) 65 - 99 mg/dL 01/26/2025 2:50 AM EDT [facility] BUN 20.1 8.0 - 23.0 mg/dL 01/26/2025 2:50 AM EDT [facility] Creatinine 1.30(H) 0.57 - 1.00 mg/dL 01/26/2025 2:50 AM [facility] Sodium 142 136 - 145 mmol/L 01/26/2025 2:50 AM [facility] Potassium 3.9 3.5 - 5.2 mmol/L 01/26/2025 2:50 AM [facility] Chloride 107 98 - 107 mmol/L 01/26/2025 2:50 AM [facility] CO2 21.1(L) 22.0 - 29.0 mmol/L 01/26/2025 2:50 AM [facility] Calcium 9.0 8.6 - 10.5 mg/dL 01/26/2025 2:50 AM [facility] Total Protein 6.9 6.0 - 8.5 g/dL 01/26/2025 2:50 AM [facility] Albumin 4.0 3.5 - 5.2 g/dL 01/26/2025 2:50 AM [facility] ALT (SGPT) 19 1 - 33 U/L 01/26/2025 2:50 AM [facility] AST (SGOT) 30 1 - 32 U/L 01/26/2025 2:50 AM [facility] Alkaline Phosphatase 120(H) 39 - 117 U/L 01/26/2025 2:50 AM [facility] Total Bilirubin 0.4 0.0 - 1.2 mg/dL 01/26/2025 2:50 AM [facility] Globulin 2.9 gm/dL 01/26/2025 2:50 AM [facility] Comment:Calculated Result A/G Ratio 1.4 g/dL 01/26/2025 2:50 AM [facility] BUN/Creatinine Ratio 15.5 7.0 - 25.0 01/26/2025 2:50 AM [facility] Anion Gap 13.9 5.0 - 15.0 mmol/L 01/26/2025 2:50 AM EDT [facility] eGFR 43.5(L) >60.0 mL/min/1.7 3 01/26/2025 2:50 AM EDT [facility] Blood Line / Unknown 01/26/2025 2: 09 AM EDT 01/26/2025 2:20 AM EDT Narrative [facility] - 01/26/2025 2:50 AM EDT GFR [...] Martinez APRN LAB BLOOD ORDERABLES Final Result [facility]
[address] [place] [address], * (ABNORMAL) CK (01/26/2025 2:09 AM EDT) Creatine Kinase 206(H) 20 - 180 U/L 01/26/2025 2:50 AM EDT [facility] Blood Line / Unknown 01/26/2025 2: 09 AM EDT 01/26/2025 2:20 AM EDT Maru Martinez SUPERVISOR DOG LICENSE OFFICER LAB BLOOD ORDERABLES Final Result [facility]
[address] [place] [address], * aPTT (01/26/2025 2:09 AM EDT) PTT 26.2 22.0 - 39.0 seconds 01/26/2025 2:56 AM EDT [facility] Blood Line / Unknown 01/26/2025 2: 09 AM EDT 01/26/2025 2:20 AM EDT Narrative [facility] - 01/26/2025 2:56 AM EDT PTT = The equivalent PTT values for the therapeutic range of heparin levels at 0.3 to 0.5 U/ml are 60 to 70 seconds. Maru Martinez APRN LAB BLOOD ORDERABLES Final Result Performing Organization Address [facility]/ZIP Co de Phone Number [facility]
[address] [place] [address], * Calcium, Ionized (01/26/2025 2:09 AM EDT) Ionized Calcium 1.15 1.15 - 1.30 mmol/L 01/26/2025 2:22 AM EDT [facility] Blood Line / Unknown 01/26/2025 2: 09 AM EDT 01/26/2025 2:20 AM EDT Maur Martinez APRN LAB BLOOD ORDERABLES Final Result Performing Organization Address [facility] de Phone Number [facility]
[address] [place] [address], * Blood Culture - Blood, Blood, Port (01/26/2025 2:00 AM EDT) Blood Culture No growth at 5 days 02/04/2025 12:48 PM EST [facility] Blood (Blood, Port) Port / Unknown 01/26/2025 2:00 AM EDT 01/26/2025 3:10 AM EDT Maru Martinez APRN MICROBIOLOGY - GENERAL ORD ERABLES Edited Result - Final Performing Organization Address [facility] Co de Phone Number [facility]
[address] [place] [address], * Blood Culture - Blood, Arm, Right (01/26/2025 2:00 AM EDT) Blood Culture No growth at 5 days 02/04/2025 12:48 PM EST [facility] Blood Structure of right upper limb / Unknown Venipuncture / Unknown 01/26/2025 2:00 AM EDT 01/26/2025 3:09 AM EDT Maru Martinez APRN MICROBIOLOGY - GENERAL ORD ERABLES Edited Result - Final Performing Organization Address [facility]/ZIP Co de Phone Number [facility]
[address] [place] [address], * CT Angiogram Head w AI Analysis [...] MD 01/26/2025 1:54 AM EDT Workstation ID: [id number] Narrative 01/26/2025 1:[address] ANGIOGRAM [...] MD 01/26/2025 1:54 AM EDT Workstation ID: [id number] Maru Martinez APRN IMG CT ORDERABLES Final [...] MD 01/26/2025 1:54 AM EDT Workstation ID: [id number] Veda 01/26/2025 1:[address] ANGIOGRAM NECK, [...] MD 01/26/2025 1:54 AM EDT Workstation ID: [id number] Maru Martinez SUPERVISOR DOG LICENSE OFFICER IMG CT ORDERABLES Final Re sult * CT Head Without Contrast (01/26/2025 1:31 AM EDT) Anatomical Region Laterality Modality Head N/A Computed Tomogra phy 01/26/2025 1:45 AM EDT Impressions 01/26/2025 1:46 AM EDT Impression: No acute intracranial abnormality. Electronically Signed: Jesus Peterson MD 01/26/2025 1:46 AM EDT Workstation ID: [id number] Narrative 01/26/2025 1:[address] HEAD [...] MD 01/26/2025 1:46 AM EDT Workstation ID: [id number] Result [facility] Maru Martinez SUPERVISOR DOG LICENSE OFFICER IMG CT ORDERABLES Final Re sult * LABS SCANNED (01/26/2025) Result [facility] LAB BLOOD ORDERABLES Final Re sult * IMAGING SCANNED (01/26/2025) Anatomical Region Laterality Modality Radiographic Tammy ging Result [facility] IMG DIAGNOSTIC IMAGING ORDERA BLES Final Result * IMAGING SCANNED (01/26/2025) Anatomical Region Laterality Modality Radiographic Tammy ging Result [facility] IMG DIAGNOSTIC IMAGING ORDERA BLES Final Result * IMAGING SCANNED (01/26/2025) Anatomical Region Laterality Modality Radiographic Tammy ging Result [facility] IMG DIAGNOSTIC IMAGING ORDERA BLES Final Result * IMAGING SCANNED (01/26/2025) Anatomical Region Laterality Modality Radiographic Tammy ging Result [facility] IMG DIAGNOSTIC IMAGING ORDERA BLES Final Result * IMAGING SCANNED (01/26/2025) Anatomical Region Laterality Modality Radiographic Tammy ging Result [facility] IMG DIAGNOSTIC IMAGING ORDERA BLES Final Result * IMAGING SCANNED (01/26/2025) Anatomical Region Laterality Modality Radiographic Tammy ging [facility] IMG DIAGNOSTIC IMAGING ORDERA BLES Final Result * IMAGING SCANNED (01/26/2025) Anatomical Region Laterality Modality Radiographic Tammy ging [facility] IMG DIAGNOSTIC IMAGING ORDERA BLES Final Result [...] Minutes, Every 8 Hours, First dose on 01/26/25 at 0500, For 5 days, Do not [...] tablet 25 mcg 25 mcg, Oral, Every Tooling Specialist, First dose (after last modification) on Sun01/27/25 [...] with warm soapy water or use hand paper colorer. 3. Open the tube of mupirocin 2%. [...] at 0900, For 7 days, Indications: Prophylaxis 110 (Given - Provider: Lainey Zaman, RN)2017 (Given - Provider: Mar Soriano RN) 902 (Given - Provider: Rossy Singh RN)2112 (Given - Provider: Mary Wu, SPENCER) 08 (Given - Provider: Mary Valdez, RN Helicopter Pilot Instructor) amitriptyline (ELAVIL) tablet 50 mg 50 mg, Oral, Nightly, First dose (after last modification) on Sun01/26/25 at 2100 2017 (Given - Provider: Mar Soriano, SPENCER) 2113 (Given - Provider: Mary Wu, SPENCER) amLODIPine (NORVASC) tablet 10 mg 10 mg, Oral, Every 24 Hours Scheduled, First dose (after last modification) on Sun01/28/25 at 0900, Hold for SBP less than 100, DBP less than 60. Caution: Look alike/sound alike drug alert. Avoid grapefruit juice. 0904 (Given - Provider: Rossy Singh RN) 0833 (Given - Provider: Mary Valdez, RN Helicopter Pilot Instructor) amLODIPine (NORVASC) tablet 5 mg (CANCELED) 5 [...] alike/sound alike drug alert. Avoid grapefruit juice. 1851 (Given - Provider: Lainey Zaman RN) ARIPiprazole (ABILIFY) tablet 2 mg 2 mg, Oral, Daily, First dose (after last modification) on Sun01/26/25 at 1200, Caution: Look alike/sound alike drug alert. Avoid grapefruit juice. 836 (Given - Provider: Lainey Zaman RN) 09 (Given - Provider: Rossy Singh RN) 0832 (Given - Provider: Mary Valdez, RN Helicopter Pilot Instructor) cefTRIAXone (ROCEPHIN) 2,000 mg in sodium chloride [...] Soriano RN) 09 (Given - Provider: Rossy Singh, SPENCER)2113 (Given - Provider: Mary Wu RN) 0832 (Given - Provider: Mary Valdez, RN Helicopter Pilot Instructor) DULoxetine (CYMBALTA) DR capsule 120 mg 120 [...] juice. Do not crush or chew capsule. 0838 (Given - Provider: Lainey Zaman RN) 09 (Given - Provider: Rossy Snigh RN) 0832 (Given - Provider: Mary Valdez RN Helicopter Pilot Instructor) enoxaparin sodium (LOVENOX) syringe 40 mg 40 mg, Subcutaneous, Daily, First dose on Sun01/27/25 at 1900, Give subcutaneous in abdomen only. Do not massage site after injection., Indications: VTE Prophylaxis 2017 (Given - Provider: Mar Soriano RN) 903 (Given - Provider: Rossy Singh RN) 0831 (Given - Provider: Mary Valdez RN Helicopter Pilot Instructor) Gadopiclenol (VUEWAY) injection 7.5 mL (COMPLETED) 7.5 [...] drug alert. 2017 (Given - Provider: Mar Soriano RN) 09 (Given - Provider: Rossy Singh RN)2113 (Given - Provider: Mary Wu RN) 0832 (Given - Provider: Mary Valdez RN Helicopter Pilot Instructor) levothyroxine (SYNTHROID, LEVOTHROID) tablet 25 mcg 25 mcg, Oral, Every Tooling Specialist, First dose (after last modification) on Sun01/27/25 at 0600, Take on empty stomach. 0546 (Given - Provider: Minnie Castillo RN) 0500 (Given - Provider: Raeann Arredondo, SPENCER) 0533 (Given - Provider: Mary Wu, SPENCER) [...] lower back)2357 (Medication Removed - Provider: Mary Wu, SPENCER) 1111 (Not Given - Provider: Mary Valdez RN Helicopter Pilot Instructor - Reason: Patient not available) losartan (COZAAR) [...] 0832 (Given - Provider: Mary Valdez RN Helicopter Pilot Instructor) mupirocin (BACTROBAN) 2 % nasal ointment 1 [...] with warm soapy water or use hand paper colorer. 3. Open the tube of mupirocin 2%. [...] together and massage gently for 60 seconds. ([facility]) 0837 (Given - Provider: Lainey Zaman RN)2017 (Given - Provider: Mar Soriano RN) 0904 (Given - Provider: Rossy Singh RN)2115 (Given - Provider: Mary Wu RN) 0832 (Given - Provider: Mary Valdez RN Helicopter Pilot Instructor) potassium chloride (KLOR-CON M20) CR tablet 40 [...] 0835 (Given - Provider: Mary Valdez RN Helicopter Pilot Instructor) sodium chloride 0.9 % flush 10 mL 10 mL, Intravenous, Every 12 Hours Scheduled, First dose on Sun01/26/25 at 0245 0854 (Not Given - Provider: Lainey Zaman RN - Reason: Given from running infusion)2018 (Canceled Entry - Provider: Mar Soriano RN) 917 (Given - Provider: Rossy Singh RN)2115 (Given - Provider: Mary Wu RN) 0836 (Given - Provider: Elena Torre, SPENCER) sodium chloride 0.9 % flush 10 mL 10 mL, Intravenous, Every 12 Hours Scheduled, First dose on Sun01/26/25 at 1230, Lumen #1 0845 (Given - Provider: Lainey Zaman RN)2018 (Given - Provider: Mar Soriano RN) 917 (Given - Provider: Rossy Singh RN)2114 (Given - Provider: Mary Wu, SPENCER) 0836 (Given - Provider: Elena Torre, SPENCER) sodium chloride 0.9 % flush 10 mL 10 mL, Intravenous, Every 12 Hours Scheduled, First dose on Sun01/26/25 at 1230, Lumen #2 0845 (Given - Provider: Lainey Zaman RN)2018 (Given - Provider: Mar Soriano RN) 0950 (Given - Provider: Rossy Singh RN)2114 (Given - Provider: Mary Wu, SPENCER) 0836 (Given - Provider: Elena Torre, SPENCER) sodium chloride 0.9 % flush 10 mL 10 mL, Intravenous, Every 12 Hours Scheduled, First dose on Sun01/26/25 at 1230, Lumen #3 0845 (Given - Provider: Lainey Zaman RN)2018 (Given - Provider: Mar Soriano RN) 0950 (Given - Provider: Rossy Singh, RN)2115 (Given - Provider: Mary Wu, RN) 0837 (Given - Provider: Elena Torre, SPENCER) Continuous Medication Order 01/27/2025 01/28/2025 01/29/2025 dexmedeTOMIDine [...] Castillo RN)0115 (Rate/Dose Change - Provider: Minnie Castillo, RN)0130 (Rate/Dose Change - Provider: Minnie Castillo, SPENCER)0228 (Rate/Dose Change - Provider: Minnie Castillo, RN)0358 [...] BPA Driven Protocol Open Order & Select [facility] Electrolyte Replacement Protocol Algorithm to View Details [...] BPA Driven Protocol Open Order & Select [facility] Electrolyte Replacement Protocol Algorithm to View Details [...] 5-8 0837 (Given - Provider: Lainey Zaman RN)205 (Given - Provider: Mar Soriano RN) 0500 (Given - Provider: Raeann Arredondo, SPENCER)1302 (Given - Provider: Rossy Singh, SPENCER)2113 (Given - Provider: Mary Wu, SPENCER) 0533 (Given - Provider: Mary Wu, SPENCER)1334 (Given - Provider: Mary Valdez RN Helicopter Pilot Instructor) Phosphorus Replacement - Follow Nurse / BPA Driven Protocol Open Order & Select [facility] Electrolyte Replacement Protocol Algorithm to View Details [...] BPA Driven Protocol Open Order & Select [facility] Electrolyte Replacement Protocol Algorithm to View Details [...] 0835 (Given - Provider: Mary Valdez RN Helicopter Pilot Instructor) sodium chloride 0.9 % flush 10 mL [...] documented as of this encounter Care Teams Cover Stitch Machine Operator Relationship Specialty Start Date End Date Connor Gomez MD [address] [place] [address] PCP - General Family Medicine 01/26/25 documented as of this encounter
[2025-03-25 09:42] VITALS: BP 164/83; PULSE 103; RESP 19; TEMP 36.8; O2SAT 96; BMI 24.2
--- OUTSIDE RECORDS SUMMARY | 2025-03-25 09:46 | XMS_ITS | Clinical Summary ---
Author Organization [facility] Address [address] [place] [address] Phone Care Team Providers Care Soft Boarder Name Role Phone Unavailable Unavailable Conditions or Problems No information available. Medications No information available. Medications Administered No information available. Allergies, Adverse Reactions, Alerts No information available. Results No information available. Plan of Care No information available. Procedures No information available. Vital Signs No information available. Immunizations No information available. Advance Directives No information available.
--- OUTSIDE RECORDS SUMMARY | 2025-03-25 09:47 | XMS_ITS | Encounter Summary ---
Author Organization [facility] Address [address] [place] [address] Care Team Providers Care Client Service Executive Name Role Phone Connor Gomez MD Primary Care Provider [phone] Encounter Details Date Type Department Care Team [...] and heating? Patient unable to answer 01/26/2025 [facility] [place] [facility] - Occupational Stress [...] things needed for daily living? No 01/26/2025 [facility] Utilities Answer Date Recorded In the past 12 months has th e [employer], gas, oil, or water company threatened to [...] Patient unable to answer 01/26/2025 Preferred Language Israeli 01/26/2025 Comments No Sex and Gender Information [...] documented as of this encounter Care Teams Client Service Executive Relationship Specialty Start Date End Date Connor Gomez MD [address] [place] [address] PCP - General Family Medicine 01/26/25 documented as of this encounter
--- OUTSIDE RECORDS SUMMARY | 2025-03-25 09:47 | XMS_ITS | Encounter Summary ---
Author Organization [facility] Address [address] [place] [address] Care Team Providers Care Automotive Technology Instructor Name Role Phone Timothy Granda DO Primary Care Provider [phone] Sadia Campo ICE CREAM VENDOR Unavailable Unavailable Encounter Details Date Type Department Care Team (Late st Contact Info) Description 07/24/2023 Lab Requisition [facility] [address] [place] [address] Miky Coleman MD [address] [place] [address] Encounter for general adult medical [...] place to sleep or slept in a skilled nursing (including now)? Patient refused 07/23/2023 CAGE ASSESSMENT [...] drink first t mini in the morning (EYE-ELECTRICAL POWER ENGINEER) to steady your nerves or to get [...] Description 07/20/2025 10:40 AM EDT Office Visit [facility] Nephrology, Bone & Mineral Metabolism [address], [address] [place] [address] Gutierrez Domínguez MD [address] [place] [address] documented as of this encounter Procedures Procedure Name Priority Date/Time Associated Diagnosis Comments MULTI DRUG RESISTANCE TEST Routine 07/23/2023 9:00 AM EDT Encounter for general adult medical examination without abnormal findings documented in this encounter Results * Multi Drug Resistance Test (07/23/2023 9:00 AM EDT) Culture No growth at day 1 07/25/2023 12:01 AM EDT [facility] Swab (Nares and Renata Rectal) 07/23/2023 9:00 AM EDT 07/24/2023 4:19 AM EDT us Miky Coleman MD LAB MICROBIOLOGY - GEN ERAL ORDERABLES Final Result [facility] [address] [place] [address] documented in this encounter Visit Diagnoses Diagnosis [...] documented as of this encounter Care Teams Automotive Technology Instructor Relationship Specialty Start Date End Date Timothy Granda DO [address] [place] [address] PCP - General 05/25/23 Sadia Campo, [place] [address] Aerial Photographer [employer] 08/03/22 06/21/24 documented as of this encounter
--- OUTSIDE RECORDS SUMMARY | 2025-03-25 09:47 | XMS_ITS | Clinical Summary ---
Author Organization [facility] Address [address] [place] [address] Care Team Providers Care Ethanol Operator Name Role Phone Connor Gomez MD Primary Care Provider +1- [phone] Allergies Active Allergy Reactions Criticality Noted Date [...] Daily. Active vitamin D (ERGOCALCIFEROL) 1.25 MG (65081 UT) capsule capsule Take 1 capsule by [...] Patient may need Pain Management referral. Discontinue Roma and use oxycodone 10mg q6h prn. Discussed with patient will not increase this medicine group home prescription opiate use 03/13/2022 Chronic arthritis [...] Department Care Team Description 01/29/2025 Readmission Management [facility] NURSE CALL CENTER [address] [place] [address] Jamila Shaikh RN 01/27/2025 Travel 01/26/2025 1:09 AM EDT - 01/29/2025 2:01 PM EDT Hospital Encounter [facility] [address] [place] [address] Rayshawn Baldwin MD Mueller, Andrew [...] and heating? Patient unable to answer 01/26/2025 [facility] of Occupat ional Health - Occupational [...] things needed for daily living? No 01/26/2025 [facility] Utilities Answer Date Recorded In [...] Patient unable to answer 01/26/2025 Preferred Language Costa Rican 01/26/2025 Comments No Sex and Gender Information [...] this topic Medical Devices Implanted Type Area Exotic Dancer Device Identifier Shelf Expiration Date Model / Serial / Lot Cmt Bone Simplex/P Full Dose /Pk - [id number] Implanted:Qty : 1 on 07/18/2018 by Bautista Luis MD at [facility] Implant Right: Shoulder TRACY RUBEN 09/29/2020 [id number] / / [id number] Stem Hum Univers Coram 6x60mm - [id number] Implanted:Qty : 1 on 07/18/2018 by Bautista Luis MD at [facility] Implant Right: Shoulder ARTHREX 08/30/2022 [id number] / / [id number] Alberto Lugo Sm - [id number] Implanted:Qty : 1 on 07/18/2018 by Bautista Luis MD at [facility] Implant Right: Shoulder ARTHREX 12/30/2022 [id number] / / [id number] Hd Hum Univers2 Cocr 29m80oi - [id number] Implanted:Qty : 1 on 07/18/2018 by Bautista Luis MD at [facility] Implant Right: Shoulder ARTHREX 03/01/2022 [id number] / / [id number] Sut Tw 2/0 38in Wht/Blk - [id number] Implanted:Qty : 3 on 07/18/2018 by Bautista Luis MD at [facility] Implant Right: Shoulder ARTHREX [id number] / / Totl Arth Shldr S3 - [id number] Implanted:Qty : 1 on 07/18/2018 by Bautista Luis MD at [facility] Implant Right: Shoulder ARTHREX CAPTOTLSHLD [id number] / / Procedures Procedure Name Priority Date/Time [...] of2 resultswithin the time period is included. [facility] Onbase ECG ORDERABLES Final Result * [...] Result [facility] LABORATORY
[address] [place] [address], * (ABNORMAL) CBC (No Diff) (01/28/2025 10:34 [...] esult [facility] LABORATORY
[address] [place] [address], * (ABNORMAL) Basic Metabolic Panel (01/28/2025 10:34 [...] 10:34 AM EDT 01/28/2025 11:41 AM EDT [facility] LABORATORY - 01/28/2025 12:14 PM [...] R esult [facility] LABORATORY
[address] [place] [id number], * MRI Brain With Contrast (01/27/2025 1:28 AM EDT) Anatomical Region Laterality Modality Head, Neck N/A Magnetic Resonan ce 01/27/2025 2:00 AM EDT Impressions 01/27/2025 2:05 AM EDT Impression: No pathologic contrast enhancement. 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 Electronically Signed: Jesus Peterson MD 01/27/2025 2:05 AM EDT Workstation ID: [id number] Narrative 01/27/2025 2:05 AM EDT MRI BRAIN [...] MD 01/27/2025 2:05 AM EDT Workstation ID: [id number] Adama Maher MD IMG MRI ORDERABLES Final Result * POC Glucose Once (01/26/2025 5:38 PM EDT) Only the most recent of4 resultswithin the time period is included. Glucose 91 70 - 130 mg/dL 01/26/2025 5:40 PM EDT [facility] Comment:Serial Number: [id number]: [id number] Amber Comment 1 Follow unit protocol 01/26/2025 5:40 PM EDT [facility] Blood 01/26/2025 5:38 PM EDT 01/26/2025 5:40 PM EDT us Andrew Barkley MD POINT OF CARE TEST ORDERABLE S Final Result [facility] LABORATORY
[address] [place] [address], * ECHO COMPLETE W/ DOPPLER AND COLOR [...] Final Result [facility] LABORATORY
[address] [place] [address], * (ABNORMAL) Hemoglobin A1c (01/26/2025 6:51 AM [...] ORDERABLE S Final Result Performing Organization Address City/[facility]/ZIP Co de Phone Number [facility] LABORATORY
[address] [place] [address], * (ABNORMAL) Vancomycin, Random (01/26/2025 6:51 AM [...] CernaD LAB BLOOD ORDERABLES Final R esult [facility] LABORATORY
[address] [place] [address], * EEG AWAKE OR ASLEEP PORTABLE (01/26/2025 6:30 AM EDT) Impressions NEUROLOGY - 01/26/2025 8:58 AM EDT Diffuse cerebral dysfunction of at least mild degree, nonspecific but most commonly seen due to toxic/metabolic cause No ongoing seizures are present This report is transcribed using the [employer] dictation system. Narrative NEUROLOGY - 01/26/2025 8:58 [...] Troponin T 1Hr (01/26/2025 3:28 AM EDT) [facility] HS Troponin T 22(H) <14 ng/L 01/26/2025 [...] to an underlying chronic condition. Maru Martinez AQUATIC SCIENTIST LAB BLOOD ORDERABLES Final Result [facility] LABORATORY
[address] [place] [address], * ECG 12 Lead QT Measurement (01/26/2025 3:10 AM EDT) [facility] QT Interval 340 ms BH ECG QTC [...] 01/26/2025 8:10:43 AM Referred By: Confirmed By: DARSHNA KHAN MD Procedure Note Darshan Khan MD [...] Confirmed By: DARSHAN KHAN MD Maru Martinez AQUATIC SCIENTIST ECG ORDERABLES Final Resu lt ECG * [...] 01/26/2025 3:13 AM EDT us Maru Martinez AQUATIC SCIENTIST URINE ORDERABLES Final Res ult [facility]
[address] [place] [address], * (ABNORMAL) Urinalysis With Microscopic If Indicated (No Culture) - Indwelling Urethral Catheter (01/26/2025 2:57 AM EDT) Color, UA Yellow Yellow, Straw 01/26/2025 3:25 AM EDT [facility] Appearance, UA Clear Clear 01/26/2025 3:25 AM EDT [facility] pH, UA 5.5 5.0 - 8.0 01/26/2025 3:25 AM EDT [facility] Specific [place], UA >1.030(H) 1.005 - 1.030 01/26/2025 3:25 [...] 01/26/2025 3:13 AM EDT us Maru Martinez AQUATIC SCIENTIST URINE ORDERABLES Final Res ult [facility]
[address] [place] [address], * (ABNORMAL) Urine Drug Screen - Indwelling [...] 2:57 AM EDT 01/26/2025 3:13 AM EDT [facility] LABORATORY - 01/26/2025 3:27 AM [...] unconfirmed results are used. us Maru Martinez AQUATIC SCIENTIST URINE ORDERABLES Final Res ult [facility] LABORATORY
[address] [place] [address], * Fentanyl, Urine - Indwelling Urethral Catheter (01/26/2025 2:57 AM EDT) Fentanyl, Urine Negative Negative 01/26/2025 3:40 AM EDT [facility] Urine (Indwelling Urethral Catheter) Collection / Unknown 01/26/2025 2:57 AM EDT 01/26/2025 3:13 AM EDT [facility] LABORATORY - 01/26/2025 3:40 AM [...] ORDERABLES Final Res ult Performing Organization Address City/[facility] Co de Phone Number [facility] LABORATORY
[address] [place] [address], * LSAC Slide Creation (01/26/2025 2:09 AM EDT) Blood Line / Unknown 01/26/2025 2: 09 AM EDT 01/26/2025 2:20 AM EDT Maru Martinez APRN LAB BLOOD ORDER ONLY Final Result Performing Organization Address [facility] Co de Phone Number [facility] LABORATORY
[address] [place] [address], [place] [phone] * TSH Rfx On Abnormal To Free T4 (01/26/2025 2:09 AM EDT) TSH 1.430 0.270 - 4.200 uIU/mL 01/26/2025 2:50 AM EDT [facility] Blood Line / Unknown 01/26/2025 2: 09 AM EDT 01/26/2025 2:20 AM EDT Maru Martinez APRN LAB BLOOD ORDERABLES Final Result Performing Organization Address [facility] de Phone Number [facility] LABORATORY
[address] [place] [address], [place] [phone] * Procalcitonin (01/26/2025 2:09 AM EDT) Procalcitonin [...] Day 4 values are available. Refer to [email or web address]-wfy-[email or web address] Change in PCT <=80% A decrease of [...] sepsis or septic shock. us Maru Martinez AQUATIC SCIENTIST LAB BLOOD ORDERABLES Final Result [facility] LABOR[facility]ORY
[address] [place] [address], * (ABNORMAL) CBC Auto Differential (01/26/2025 2:09 AM EDT) [facility] WBC 18.88(H) 3.40 - 10.80 10*3/mm3 01/26/2025 [...] 01/26/2025 2:20 AM EDT us Maru Martinez AQUATIC SCIENTIST LAB BLOOD ORDERABLES Final Result [facility] LABOR[facility]ORY
[address] [place] [address], * (ABNORMAL) High Sensitivity Troponin T (01/26/2025 [...] to an underlying chronic condition. Maru Martinez [facility] LAB BLOOD ORDERABLES Final Result [facility]
[address] [place] [address], * (ABNORMAL) Manual Differential (01/26/2025 2:09 AM [...] Result [facility] LABORATORY
[address] [place] [address], * aPTT (01/26/2025 2:09 AM EDT) PTT [...] are 60 to 70 seconds. Maru Martinez AQUATIC SCIENTIST LAB BLOOD ORDERABLES Final Result Performing Organization Address City/[facility]/ZIP Co de Phone Number [facility] LABOR[facility]ORY
[address] [place] [address], * Protime-INR (01/26/2025 2:09 AM EDT) Protime 13.9 12.2 - 15.3 Seconds 01/26/2025 2:56 AM EDT [facility] INR 1.01 0.89 - 1.12 01/26/2025 2:56 AM EDT [facility] Blood Line / Unknown 01/26/2025 2: 09 AM EDT 01/26/2025 2:20 AM EDT Maru Martinez AQUATIC SCIENTIST LAB BLOOD ORDERABLES Final Result Performing Organization Address [facility] Co de Phone Number [facility] LABOR[facility]ORY
[address] [place] [address], * Phosphorus (01/26/2025 2:09 AM EDT) Phosphorus 3.6 2.5 - 4.5 mg/dL 01/26/2025 2:50 AM EDT [facility] Blood Line / Unknown 01/26/2025 2: 09 AM EDT 01/26/2025 2:20 AM EDT Maru Martinez AQUATIC SCIENTIST LAB BLOOD ORDERABLES Final Result [facility] LAB[facility]
[address] [place] [address], * Magnesium (01/26/2025 2:09 AM EDT) Magnesium 2.1 1.6 - 2.4 mg/dL 01/26/2025 2:50 AM EDT [facility] Blood Line / Unknown 01/26/2025 2: 09 AM EDT 01/26/2025 2:20 AM EDT Maru Martinez AQUATIC SCIENTIST LAB BLOOD ORDERABLES Final Result Performing Organization Address City/[facility]/ZIP Co de Phone Number [facility] LABOR[facility]ORY
[address] [place] [address], * Lipase (01/26/2025 2:09 AM EDT) Lipase 20 13 - 60 U/L 01/26/2025 2:50 AM EDT [facility] Blood Line / Unknown 01/26/2025 2: 09 AM EDT 01/26/2025 2:20 AM EDT Maru Martinez AQUATIC SCIENTIST LAB BLOOD ORDERABLES Final Result Performing Organization Address [facility] Co de Phone Number [facility] LAB[facility]ORY
[address] [place] [address], * (ABNORMAL) Lactic Acid, Plasma (01/26/2025 2:09 AM EDT) Lactate 2.7(HH) 0.5 - 2.0 mmol/L 01/26/2025 2:45 AM EDT [facility] Comment:Falsely depressed re sults may occur on samples drawn from patients receiving N-Acetylcysteine (NAC) or Metamizole. Blood Line / Unknown 01/26/2025 2: 09 AM EDT 01/26/2025 2:20 AM EDT Maru Martinez AQUATIC SCIENTIST LAB BLOOD ORDERABLES Final Result Performing Organization Address City/[facility]/ZIP Co de Phone Number [facility] LABOR[facility]ORY
[address] [place] [address], [place] [phone] * (ABNORMAL) CK (01/26/2025 2:09 AM EDT) Creatine Kinase 206(H) 20 - 180 U/L 01/26/2025 2:50 AM EDT [facility] Blood Line / Unknown 01/26/2025 2: 09 AM EDT 01/26/2025 2:20 AM EDT Maru Martinez APRN LAB BLOOD ORDERABLES Final Result [facility] LAB[facility]
[address] [place] [address], * Calcium, Ionized (01/26/2025 2:09 AM EDT) Ionized Calcium 1.15 1.15 - 1.30 mmol/L 01/26/2025 2:22 AM EDT [facility] Blood Line / Unknown 01/26/2025 2: 09 AM EDT 01/26/2025 2:20 AM EDT Maru Martinez APRN LAB BLOOD ORDERABLES Final Result [facility]
[address] [place] [address], * (ABNORMAL) Lipid Panel (01/26/2025 2:09 AM [...] Final Result [facility] LAB[facility]
[address] [place] [address], * (ABNORMAL) Comprehensive Metabolic Panel (01/26/2025 2:09 AM EDT) Glucose 154(H) 65 - 99 mg/dL 01/26/2025 2:50 AM EDT [facility] BUN 20.1 8.0 - 23.0 mg/dL 01/26/2025 2:50 AM EDT [facility] Creatinine 1.30(H) 0.57 - 1.00 mg/dL 01/26/2025 2:50 AM [facility] Sodium 142 136 - 145 mmol/L 01/26/2025 2:50 AM [facility] Potassium 3.9 3.5 - 5.2 mmol/L 01/26/2025 2:50 AM [facility] Chloride 107 98 - 107 mmol/L 01/26/2025 2:50 AM [facility] CO2 21.1(L) 22.0 - 29.0 mmol/L 01/26/2025 2:50 AM [facility] Calcium 9.0 8.6 - 10.5 mg/dL 01/26/2025 2:50 AM [facility] Total Protein 6.9 6.0 - 8.5 g/dL 01/26/2025 2:50 AM [facility] Albumin 4.0 3.5 - 5.2 g/dL 01/26/2025 2:50 AM [facility] ALT (SGPT) 19 1 - 33 U/L 01/26/2025 2:50 AM [facility] AST (SGOT) 30 1 - 32 U/L 01/26/2025 2:50 AM [facility] Alkaline Phosphatase 120(H) 39 - 117 U/L 01/26/2025 2:50 AM [facility] Total Bilirubin 0.4 0.0 - 1.2 mg/dL 01/26/2025 2:50 AM [facility] Globulin 2.9 gm/dL 01/26/2025 2:50 AM [facility] Comment:Calculated Result A/G Ratio 1.4 g/dL 01/26/2025 2:50 AM [facility] BUN/Creatinine Ratio 15.5 7.0 - 25.0 01/26/2025 2:50 AM [facility] Anion Gap 13.9 5.0 - 15.0 mmol/L 01/26/2025 2:50 AM [facility] eGFR 43.5(L) >60.0 mL/min/1.7 3 [...] Final Result [facility]
[address] [place] [address], * Blood Culture - Blood, Blood, Port [...] GENERAL ORD ERABLES Edited Result - Final [facility]
[address] [place] [address], * CT Angiogram Head w AI Analysis [...] MD 01/26/2025 1:54 AM EDT Workstation ID: [id number] [facility] 01/26/2025 1:[address] ANGIOGRAM [...] MD 01/26/2025 1:54 AM EDT Workstation ID: [id number] us Maru Sarabjit Martinez AQUATIC SCIENTIST IMG CT ORDERABLES Final Re sult * [...] MD 01/26/2025 1:54 AM EDT Workstation ID: [id number] Narrative 01/26/2025 1:[address] ANGIOGRAM [...] MD 01/26/2025 1:54 AM EDT Workstation ID: [id number] Maru Martinez AQUATIC SCIENTIST IMG CT ORDERABLES Final Re sult * CT Head Without Contrast (01/26/2025 1:31 AM EDT) Anatomical Region Laterality Modality Head N/A Computed Tomogra phy 01/26/2025 1:45 AM EDT Impressions 01/26/2025 1:46 AM EDT Impression: No acute intracranial abnormality. Electronically Signed: Jesus Peterson MD 01/26/2025 1:46 AM EDT Workstation ID: [id number] Narrative 01/26/2025 1:[address] HEAD [...] MD 01/26/2025 1:46 AM EDT Workstation ID: [id number] Maru Martinez AQUATIC SCIENTIST IMG CT ORDERABLES Final Re sult * IMAGING SCANNED (01/26/2025) Only the most recent of7 resultswithin the time period is included. Anatomical Region Laterality Modality Radiographic Tammy ging formerly [facility] IMG DIAGNOSTIC IMAGING ORDERA BLES Final Result * LABS SCANNED (01/26/2025) formerly [facility] LAB BLOOD ORDERABLES Final Re sult [...] developed and its performance characteristics determined by [facility]. It has not been cleared or approved by the U.S. Food and Drug Administration. The FDA has determined that such clearance or approval is not necessary. This test is used for clinical purposes. It should not be regarded as investigational or for research. Blood 12/15/2021 11:5 5 AM EDT 12/16/2021 Narrative [facility] (AMBULATORY) - 12/21/2021 8:08 PM EDT Performed at: [address] [id number] Manufacturing Process Engineer: Genna Davenport MD, Phone: [phone] Patient Fasting: Y Connor Nunez MD LAB BLOOD ORDERABLES Fin al Result Performing Organization Address City/State/[facility] Co de Phone Number [facility] (AMBULATORY) [address] [place] [address], [facility] [address] [place] [address], * SCANNED - MAMMO (08/23/2021) Anatomical Region Laterality Modality Other Connor Nunez MD CHART REVIEW TABS Fin al Result from Last 3 Months or Most Recently Relevant to Health Maintenance [place] [address] MEDICARE A & B Member Subscriber Plan / Payer (Ef fective 2013-Present) Name:Farrah Atkinson Member ID:[id number] Relation to Subscriber:Self Name:Farrah Atkinson Subscriber ID:[id number] Payer ID:[id number] Group ID:Not on file Type:Not on file Address: [address] MEDICARE SUPPLEMENT Advance Directives * CPR [...] Of Support Discussed With: Patient Care Teams Ethanol Operator Relationship Specialty Start Date End Date Connor Gomez MD [address] [place] [address] PCP - General Family Medicine 01/26/25
--- OUTSIDE RECORDS SUMMARY | 2025-03-25 09:47 | XMS_ITS | Encounter Summary ---
Author Organization [facility] Address [address] [place] [address] Care Team Providers Care Needle Punch Operator Name Role Phone Connor Gomez MD Primary Care Provider +1- [phone] Encounter Details Date Type Department Care Team (Late st Contact Info) Description 01/29/2025 Readmission Management [facility] NURSE CALL CENTER [address] [place] [address] Bg Shaikh, RN Social History Tobacco [...] Patient unable to answer 01/26/2025 [facility] of Occupat ional Health - Occupational Stress [...] things needed for daily living? No 01/26/2025 [facility] Utilities Answer Date Recorded In the past 12 months has th [employer] electric, gas, oil, or water company threatened [...] Patient unable to answer 01/26/2025 Preferred Language Czech 01/26/2025 Comments No Sex and Gender Information Value Date Recorded Sex Assigned at Not on file Legal Sex Female 10:14 AM EST Gender Identity Not on file Sexual Orientation Not on file documented as of this encounter Miscellaneous Notes * Outreach Note - Bg Shaikh RN - 01/29/2025 8:01 PM EDT Prep Survey Flowsheet Row Responses [facility] facility patient discharged from? [place] Is LACE score less than 10 ? [...] documented as of this encounter Care Teams Needle Punch Operator Relationship Specialty Start Date End Date Connor Gomez MD [address] [place] [address] PCP - General Family Medicine 01/26/25 documented as of this encounter
--- OUTSIDE RECORDS SUMMARY | 2025-03-25 09:47 | XMS_ITS | Encounter Summary ---
Author Organization [facility] Address [address] [place] [address] Care Team Providers Care Director Of Employer Services Name Role Phone Connor Gomez MD Primary Care Provider +1- [phone] Encounter Details Date Type Department Care Team [...] and heating? Patient unable to answer 01/26/2025 [facility] of Occupat ional Health - Occupational Stress [...] things needed for daily living? No 01/26/2025 [facility] Utilities Answer Date Recorded In the past 12 months has th e [employer], gas, oil, or water company threatened to [...] Patient unable to answer 01/26/2025 Preferred Language [place] Citizen 01/26/2025 Comments No Sex and Gender Information [...] as of this encounter Care Teams Director Of Employer Services Relationship Specialty Start Date End Date Connor Gomez MD [address] [place] [address] PCP - General Family Medicine 01/26/25 documented as of this encounter
--- OUTSIDE RECORDS SUMMARY | 2025-03-25 09:47 | XMS_ITS | Encounter Summary ---
Author Organization [facility] Address [address] [place] [id number] Care Team Providers Care Air Turning Machine Feeder Name Role Phone Connor Gomez MD Primary Care Provider +1- [phone] Reason for Visit * Reason Comments Med Refill Encounter Details Date Type Department Care Team (Late st Contact Info) Description 12/22/2021 Refill [facility] [address] [place] [address] Connor Nunez MD [address] [place] [address] Chronic arthritis associated with viral [...] documented as of this encounter Care Teams Air Turning Machine Feeder Relationship Specialty Start Date End Date Connor Gomez MD [facility] [place] [address] PCP - General Family Medicine 01/26/25 documented as of this encounter
--- OUTSIDE RECORDS SUMMARY | 2025-03-25 09:48 | XMS_ITS | Encounter Summary ---
Author Organization [employer] ([place], [place], [place], [place], [place]) Address [address] [place] [address] Care Team Providers Care Greenskeeper Head Name Role Phone Sj, Provider Not In The System Primary Care Provider Unavailable Encounter Details Date Type Department Care Team (Late st Contact Info) Description 04/28/2019 Transcribed Document [facility] [facility] [place] [address] ProviderJean-Claude MD [address] [place] [address] Social History Tobacco Use Types [...] - Jean-Claude ProviderMD - 04/28/2019 9:47 AM CERTIFIED INDUSTRIAL HYGIENIST Patient Education Materials Follows: General Anesthesia, Adult, [...] activities are safe for you. ??? Take ebyi-xzz-biqyrog and prescription medicines only as told by [...] 06/25/2001 Document Revised: 11/02/2017 Document Reviewed: 11/02/2017 [employer] Patient Education ? 2019 [employer] Knee Arthroscopy, Care After Refer to [...] activities are safe for you. ??? Perform pozcp-qw-zzxuza exercises only as directed by your health [...] 03/15/2015 [employer] Interactive Patient Education ? 2018 [employer] documented in this encounter Plan of Treatment Not on file documented as of this encounter Visit Diagnoses Not on filedocumented in this encounter Care Teams Greenskeeper Head Relationship Specialty Start Date End Date Leslee, Provider Not In The System, [place] [address] PCP - General 04/16/23 documented as of this encounter
--- OUTSIDE RECORDS SUMMARY | 2025-03-25 09:48 | XMS_ITS | Encounter Summary ---
Author Organization [employer] ([place], [place], [place], [place], [place]) Address [address] [place] [address] Care Team Providers Care High School Art Teacher Name Role Phone [facility], Provider Not In The System Primary Care Provider Unavailable Encounter Details Date Type Department Care Team (Late st Contact Info) Description 04/28/2019 Transcribed Document [facility] [place] Family Medicine [address] [place] [address] ProviderJean-Claude MD [address] [place] [address] Social History Tobacco Use Types [...] - Historical ProviderMD - 04/28/2019 9:51 AM MOVIE WRITER [place] [id number] MOISE ATKINSON :1950 Visit Time:04/28/2019 What to do next Your Diagnosis Pain in unspecified knee, Pain in unspecified knee Instructions From Your Care Team No driving or legal decision for 24 hours after anesthesia. may advance diet as tolerated. May take [place] 10-325mg 1 tablet by mouth every [...] Within 2 to 3 days Where: [address] [facility] [facility] [address] [place] [address]- Medications What How Much When Instructions Next [...] activities are safe for you. ??? Take twrz-kds-aiaqeum and prescription medicines only as told by [...] 06/25/2001 Document Revised: 11/02/2017 Document Reviewed: 11/02/2017 ezzai - how to arabia Interactive Patient Education ?? 2019 ezzai - how to arabia Inc. Knee Arthroscopy, Care After Refer to [...] activities are safe for you. ??? Perform uazzq-it-desstj exercises only as directed by your health [...] 10/06/2005 Document Revised: 08/18/2016 Document Reviewed: 03/15/2015 ezzai - how to arabia Interactive Patient Education ?? 2018 [employer]on. acetaminophen and hydrocodone (a SEET a MIN oh fen and ladonna droe KOE done) Hycet, Lorcet, [place], Verdrocet, Vicodin, Xodol, Zamicet What is [...] may report side effects to FDA at 9-222-FOZ-8125. What other drugs will affect acetaminophen and [...] affect acetaminophen and hydrocodone, including prescription and obhd-ssy-hdvwdxf medicines, vitamins, and herbal products. Not all [...] to ensure that the information provided by Evercam. ('Multum') is accurate, up-to-date, and complete, but no guarantee is made to that effect. Drug information contained herein may be time sensitive. OneWheel information has been compiled for use by healthcare practitioners and consumers in the [place] and therefore OneWheel does not warrant that uses outside of the [place] are appropriate, unless specifically indicated otherwise. ezzai - how to arabias drug information does not endorse drugs, diagnose patients or recommend therapy. iMeigu drug information is an informational resource designed [...] effective or appropriate for any given patient. OneWheel does not assume any responsibility for any aspect of healthcare administered with the aid of information OneWheel provides. The information contained herein is not intended to cover all possible uses, directions, precautions, warnings, drug interactions, allergic reactions, or adverse effects. If you have questions about the drugs you are taking, check with your doctor, nurse or pharmacist. Copyright 2425-3260 Evercam. Version: 15.02. Revision Date: 02/04/2018. Emergency Awareness [...] Assistance with quitting is available by contacting 5-669-DBNS-NOW. This is a free resource providing counseling, [...] was given the opportunity to ask questions. Patient/Underground Mine Machinery Mechanic Name: Patient/Underground Mine Machinery Mechanic Signature: Relationship to Patient: Clinician/Hospital Underground Mine Machinery Mechanic Signature: Date: documented in this encounter Plan of Treatment Not on file documented as of this encounter Visit Diagnoses Not on filedocumented in this encounter Care Teams High School Art Teacher Relationship Specialty Start Date End Date Deejay, Provider Not In The System, [place] [address] PCP - General 04/16/23 documented as of this encounter
--- OUTSIDE RECORDS SUMMARY | 2025-03-25 09:48 | XMS_ITS | Encounter Summary ---
Author Organization [employer] ([place], [place], [place], [place], [place]) Address [address] [place] [address] Care Team Providers Care Bread Stacker Name Role Phone [facility], Provider Not In The System Primary Care Provider Unavailable Encounter Details Date Type Department Care Team (Late st Contact Info) Description 04/28/2019 Transcribed Document [facility] Family Medicine [address] [place] [address] ProviderJean-Claude MD [address], [place] [id number] Social History Tobacco Use Types Packs/Day Years Used Date Smoking Tobacco: Never Assessed Comments Unknown Sex and Gender Information Value Date Recorded Sex Assigned at Not on file Legal Sex Female 5:42 PM CDT Gender Identity Not on file Sexual Orientation Not on file documented as of this encounter Miscellaneous Notes * Cerner Conversion Note - Historical ProviderMD - 04/28/2019 8:05 AM KENO CLERK ADI Main OR PreOp Summary Primary Physician: MADISON OSPINA MD-ORT Finalized Date/Time: 04/28/19 09:32:12 Pt. Name: MOISE ATKINSON/Sex: 1950 Female Med Rec #: [id number] Physician: MADISON OSPINA MD-ORT Financial #: [id number] Pt. Type: O Room/Bed: Admit/Disch: 04/28/19 05:30:00 - Institution: [facility] PreOp Case Times Entry 1 In Preop 04/28/19 05:40:00 Ready for Holding n/a Room Patient Ready for 04/28/19 07:15:00 Surgery Patient Out of Preop 04/28/19 07:36:00 Patient Out of n/a Holding Room Last Modified By: ISAMAR MORRISON RN 04/28/19 09:32:08 David PreOp Case Times Audit 04/28/19 09:32:08 General Dentist/Owner: [email or web address] Modifier: [email or web address] <+> 1 Patient Out of Preop Finalized By: ISAMAR MORRISON, RN Document Signatures Signed By: ISAMAR MORRISON RN 04/28/19 09:32 documented in this encounter Plan of Treatment Not on file documented as of this encounter Visit Diagnoses Not on filedocumented in this encounter Care Teams Bread Stacker Relationship Specialty Start Date End Date [facility], Provider Not In The System, [place] [address] PCP - General 04/16/23 documented as of this encounter
--- OUTSIDE RECORDS SUMMARY | 2025-03-25 09:48 | XMS_ITS | Encounter Summary ---
Author Organization [employer] ([place], [place], [place], [place], [place]) Address [address] [place] [address] Care Team Providers Care Restaurant Greeter Name Role Phone [facility], Provider Not In The System Primary Care Provider Unavailable Encounter Details Date Type Department Care Team (Late st Contact Info) Description 04/28/2019 Transcribed Document [facility] [place] [facility] [place] [address] ProviderJean-Claude MD [address] [place] [address] Social History Tobacco Use Types [...] - Historical ProviderMD - 04/28/2019 8:29 AM PETROLEUM GEOLOGIST Pain Assessment Entered On: 04/28/2019 9:28 EST [...] on filedocumented in this encounter Care Teams Restaurant Greeter Relationship Specialty Start Date End Date [facility], Provider Not In The System, [place] [address] PCP - General 04/16/23 documented as of this encounter
--- OUTSIDE RECORDS SUMMARY | 2025-03-25 09:48 | XMS_ITS | Patient Health Record ---
Author Organization [facility] Address [address] [place] [address] Care Team Providers Care Painting Technician Name Role Phone Timothy Granda DO Primary Care Provider Tha Chaudhry Unavailable [phone] Jesus Rose Unavailable Unavailable Reason For Referral No Information Encounters Encounter Location Date Provider Diagnosis [facility] [address] [place] [address] 04/01/2024 Tha Krishnamurthy [facility] [address] [place] [address] 05/13/2024 Tha Krishnamurthy [facility] [address] [place] [address] 06/17/2024 Tha Krishnamurthy Plan Of Treatment No Information Insurance Providers Payer Name Payer Address Payer Phone Subscriber Number Group Number Insured Name Patient Relationship to Insured Coverage Start Date Coverage End Date Medicare CGS Administrators [address] [phone] Farrah Anna Self - patient is the insured
--- OUTSIDE RECORDS SUMMARY | 2025-03-25 09:48 | XMS_ITS | Clinical Summary ---
Author Organization [facility] 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
--- OUTSIDE RECORDS SUMMARY | 2025-03-25 09:48 | XMS_ITS | Encounter Summary ---
Author Organization [employer] ([place], [place], [place], [place], [place]) Address [address] [place] [address] Care Team Providers Care Sculpture Conservator Name Role Phone [facility], Provider Not In The System Primary Care Provider Unavailable Encounter Details Date Type Department Care Team (Late st Contact Info) Description 04/28/2019 Transcribed Document [facility] [place] Medicine [facility] [place] [address] ProviderJean-Claude MD [facility] [place] [id number] Social History Tobacco Use Types Packs/Day Years Used Date Smoking Tobacco: Never Assessed Comments Unknown Sex and Gender Information Value Date Recorded Sex Assigned at Not on file Legal Sex Female 5:42 PM CDT Gender Identity Not on file Sexual Orientation Not on file documented as of this encounter Miscellaneous Notes * Cerner Conversion Note - Historical ProviderMD - 04/28/2019 8:29 AM OIL RAG WASHER Pain Assessment Entered On: 04/28/2019 9:06 EST [...] on filedocumented in this encounter Care Teams Sculpture Conservator Relationship Specialty Start Date End Date Leslee, Provider Not In The System, [place] [address] PCP - General 04/16/23 documented as of this encounter
--- OUTSIDE RECORDS SUMMARY | 2025-03-25 09:48 | XMS_ITS | Referral Summary ---
Author Organization [employer] ([place], [place], [place], [place], [place]) Address [address] [place] [address] Care Team Providers Care Guard Manager Name Role Phone [facility], Provider [...] Date Dereje rded Speak language other than Upper Sorbian at home Not on file 04/12/2023 Want [...] of Treatment Not on file Care Teams Guard Manager Relationship Specialty Start Date End Date [facility], Provider Not In The System, [place] [address] PCP - General 04/16/23
--- OUTSIDE RECORDS SUMMARY | 2025-03-25 09:48 | XMS_ITS | Encounter Summary ---
Author Organization [facility] Address [address] [place] [address] Care Team Providers Care Correctional Cook Name Role Phone Chandra Leahy MD Primary Care Provider + [phone] Timothy Granda DO Primary Care Provider [phone] Sadia Campo DENITRATOR OPERATOR Unavailable Unavailable Encounter Details Date Type Department Care Team (Late st Contact Info) Description 08/14/2022 Lab Requisition [facility] [address] [place] [address] Dilip Lloyd MD [address] [address] Encounter for general adult medical [...] drink first t mini in the morning (EYE-CONDITIONING YARD SUPERVISOR) to steady your nerves or to [...] Description 07/20/2025 10:40 AM EDT Office Visit [facility] Nephrology, Bone & Mineral Metabolism [address], [address] [place] [address] Gutierrez Domínguez MD [address] [place] [address] documented as of this encounter [...] LAB MICROBIOLOGY - GENERAL ORDERABLES Final Result [facility] [address] [place] [address] documented in this encounter Visit Diagnoses Diagnosis Encounter for general adult medical examination without abnormal findings documented in this encounter Additional Health Concerns Infection Onset Date Last Indicated Resolved Time COVID-19 Rule-Out 07/22/2023 07/22/2023 07/22/2023 12:14 PM EDT C. difficile Rule-Out 07/26/2023 08/01/20232023 1:07 AM EDT Gastrointestinal Rule-Out 08/02/2023 08/01/2023 3:00 AM EDT documented as of this encounter Care Teams Correctional Cook Relationship Specialty Start Date End Date Chandra Leahy MD [address] [place] [address] PCP - General 08/02/22 05/24/23 Timothy Granda DO [address] [place] [address] PCP - General 05/25/23 Sadia Campo, [place] [address] Water Systems Engineer Marbleizer 08/03/22 06/21/24 documented as of this encounter
--- OUTSIDE RECORDS SUMMARY | 2025-03-25 09:48 | XMS_ITS | Encounter Summary ---
Author Organization [employer] ([place], [place], [place], [place], [place]) Address [address] [place] [address] Care Team Providers Care Kiln Furniture Caster Name Role Phone [facility], Provider Not In The System Primary Care Provider Unavailable Encounter Details Date Type Department Care Team (Late st Contact Info) Description 04/28/2019 Transcribed Document [facility] [place] Family Medicine [address] [place] [address] ProviderJean-Claude MD [address] [place] [address] Social History Tobacco Use Types [...] - Historical ProviderMD - 04/28/2019 10:01 AM TRAY WORKER [place] [id number] MOISE ATKINSON :1950 Visit Time:04/28/2019 What to do next Your Diagnosis Pain in unspecified knee, Pain in unspecified knee Instructions From Your Care Team No driving or legal decision for 24 hours after anesthesia. may advance diet as tolerated. May take [place] 10-325mg 1 tablet by mouth every 4-6 [...] EST Comments Appointment has been made Where: [address] [facility] [place] [address]- Medications What How Much When Instructions Next [...] activities are safe for you. ??? Take ozeh-qrq-dsahfhx and prescription medicines only as told by [...] 06/25/2001 Document Revised: 11/02/2017 Document Reviewed: 11/02/2017 AwesomenessTV Interactive Patient Education ?? 2019 AwesomenessTV Inc. Knee Arthroscopy, Care After Refer to [...] activities are safe for you. ??? Perform sxzdo-vj-lvsxex exercises only as directed by your health [...] 10/06/2005 Document Revised: 08/18/2016 Document Reviewed: 03/15/2015 AwesomenessTV Interactive Patient Education ?? 2018 Clean PET. acetaminophen and hydrocodone (a SEET a MIN oh fen and ladonna droe KOE done) Hycet, Lorcet, [place], Verdrocet, Vicodin, Xodol, Zamicet What is the [...] may report side effects to FDA at 8-652-YAQ-5020. What other drugs will affect acetaminophen and [...] affect acetaminophen and hydrocodone, including prescription and jzhy-ras-tuyhirw medicines, vitamins, and herbal products. Not all [...] to ensure that the information provided by Babel[employer]. ('Multum') is accurate, up-to-date, and complete, but no guarantee is made to that effect. Drug information contained herein may be time sensitive. F[employer] Comics information has been compiled for use by healthcare practitioners and consumers in the [place] and therefore F[employer] does not warrant that uses outside of the [place] are appropriate, unless specifically indicated otherwise. Insuritass drug information does not endorse drugs, diagnose patients or recommend therapy. JumpSeat drug information is an informational resource designed [...] effective or appropriate for any given patient. [employer] does not assume any responsibility for any aspect of healthcare administered with the aid of information F[employer] provides. The information contained herein is not intended to cover all possible uses, directions, precautions, warnings, drug interactions, allergic reactions, or adverse effects. If you have questions about the drugs you are taking, check with your doctor, nurse or pharmacist. Copyright 3202-2923 Babelverse. Version: 15.02. Revision Date: 02/04/2018. Emergency Awareness [...] Assistance with quitting is available by contacting 2-005-ZNCT-NOW. This is a free resource providing counseling, [...] was given the opportunity to ask questions. Patient/Um Nurse Name: Patient/Um Nurse Signature: Relationship to Patient: Clinician/Hospital Um Nurse Signature: Date: documented in this encounter Plan of Treatment Not on file documented as of this encounter Visit Diagnoses Not on filedocumented in this encounter Care Teams Kiln Furniture Caster Relationship Specialty Start Date End Date [facility], Provider Not In The System, [place] [address] PCP - General 04/16/23 documented as of this encounter
--- OUTSIDE RECORDS SUMMARY | 2025-03-25 09:48 | XMS_ITS | Encounter Summary ---
Author Organization [employer] ([place], [place], [place], [place], [place]) Address [address] [place] [address] Care Team Providers Care Plunger Shovel Operator Name Role Phone [facility], Provider Not In The System Primary Care Provider Unavailable Encounter Details Date Type Department Care Team (Late st Contact Info) Description 04/28/2019 Transcribed Document [facility] [place] [facility] [place] [address] ProviderJean-Claude MD [address] [place] [address] Social History Tobacco Use Types [...] Historical ProviderMD - 04/28/2019 8:05 AM SUPERVISOR PAYROLL ADI Main OR IntraOp Summary Primary Physician: MADISON OSPINA MD-ORT Finalized Date/Time: 04/28/19 08:39:15 Pt. Name: MOISE ATKINSON D.O.B./Sex: 1950 Female Med Rec #: [id number] Physician: MADISON OSPINA MD-ORT Financial #: [id number] Pt. Type: O Room/Bed: Admit/Disch: 04/28/19 05:30:00 - [place] [facility] [place] Attendance Entry 1 Entry 2 Entry 3 Case Attendee MADISON OSPINA MD-ORT WICKER, KAREN KIM, ARIA WATERS RN Role Performed Surgeon/Proceduralist, CERTIFIED GENETIC COUNSELOR/Nurse General Helper Ring Facer, First First Time In 04/28/19 07:39:00 04/28/19 [...] [facility] IntraOp Case Attendance Audit 04/28/19 08:34:51 Biblical Languages Professor: LONGGA Modifier: LONGGA 1 <+> Time Out 1 <*> Procedure Knee Arthroscopy 2 <+> Time Out 2 <*> Procedure Knee Arthroscopy 3 <+> Time Out 3 <*> Procedure Knee Arthroscopy 4 <+> Time Out 4 <*> Procedure Knee Arthroscopy 5 <+> Time Out 5 <*> Procedure Knee Arthroscopy 04/28/19 08:07:14 Biblical Languages Professor: LONGGA Modifier: LONGGA <+> 1 Time In [...] [facility] IntraOp Case Times Audit 04/28/19 08:34:50 Biblical Languages Professor: LONGGA Modifier: LONGGA <+> 1 Out Room Time <+> 1 Stop Time 04/28/19 08:31:56 Biblical Languages Professor: LONGGA Modifier: LONGGA <+> 1 Stop Time [...] IntraOp Departure from OR Audit 04/28/19 08:32:27 Biblical Languages Professor: EMBER Modifier: LONGGA 1 <*> Patient Transport [...] RN 04/28/19 08:15:47 S[facility] IntraOp General Case Furniture Packer 1 Case Information OR OR 05 SJE Case Level 1 Room Verified Yes Wound Class I - Clean Specialty SN Orthopedic Anesthesia Type General ASA Class 3 Diagnosis Preop Diagnosis PATELLAR CHONDROMALACIA RIGHT KNEE Postop Same As Preop No Postop Diagnosis DICTATED BY Mary Last Modified By: ARIA MELCHOR RN 04/28/19 08:15:39 S[facility] IntraOp General Case Data Audit 04/28/19 08:15:39 Biblical Languages Professor: EMBER Modifier: LONGGA <+> 1 ASA Class [...] Entry 1 Medication/Irrigant epinephrine 30mg/30ml vial - [id number] Route of 3ML/3000ML OF NS Administration IRRIGATION [...] [facility] IntraOp Patient Positioning Audit 04/28/19 08:17:49 Biblical Languages Professor: LONGGA Modifier: LONGGA 1 <*> Procedure Knee [...] SJE IntraOp Surgical Procedures Audit 04/28/19 08:31:50 Biblical Languages Professor: LONGGA Modifier: LONGGA 1 <*> Procedure Knee Arthroscopy 1 <+> Stop 04/28/19 08:27:35 Biblical Languages Professor: LONGGA Modifier: LONGGA 1 <*> Procedure Knee Arthroscopy 1 <*> Additional Procedure Description RIGHT KNEE ARTHROSCOPY FOR RETROPATELLAR CHONDROPLASTY AND PARTIAL MENISCECTOMY 04/28/19 08:21:54 Biblical Languages Professor: LONGGA Modifier: LONGGA 1 <*> Procedure Knee Arthroscopy 1 <*> Additional Procedure Description LEFT KNEE ARTHROSCOPY FOR RETROPATELLAR CHONDROPLASTY AND PARTIAL MENISCECTOMY SJE IntraOp Temp Regulation Devices Entry 1 Temp Regulation Temperature Forced Air Warming Regulation Device device Temperature 4765 Regulation Device Serial/Unit Number Temperature Upper body Regulation Site Temperature MOISE MANE, CERTIFIED GENETIC COUNSELOR Regulation Device Applied by Last Modified By: [...] 08:31:38 S[facility] IntraOp Tourniquet Audit 04/28/19 08:31:38 Biblical Languages Professor: EMBER Modifier: EMBER <+> 1 Stop Time Case Comments <None> Finalized By: ARIA MELCHOR, RN Document Signatures Signed By: ARIA MELCHOR RN 04/28/19 08:39 Electronically signed by May [facility] Conversion Branch Service Associate Cerner at 07/23/2022 4:21 PM CDT documented in this encounter Plan of Treatment Not on file documented as of this encounter Visit Diagnoses Not on filedocumented in this encounter Care Teams Plunger Shovel Operator Relationship Specialty Start Date End Date Deejay, Provider Not In The System, [place] [address] PCP - General 04/16/23 documented as of this encounter
--- OUTSIDE RECORDS SUMMARY | 2025-03-25 09:48 | XMS_ITS | Encounter Summary ---
Author Organization [facility] Address [address] [place] [address] Care Team Providers Care Night Filler Name Role Phone Unavailable Primary Care Provider Unavailabl e Reason for Visit * Reason Onset Date Comments Surgery Scheduling 12/08/2024 Encounter Details Date Type Department Care Team (Late st Contact Info) Description 12/08/2024 Telephone [facility], [place] [phone] Sharon Paulino MD [address] [place] [address] [address] [place] [address] Surgery Scheduling Social History Tobacco [...]
--- OUTSIDE RECORDS SUMMARY | 2025-03-25 09:48 | XMS_ITS | Encounter Summary ---
Author Organization [employer] ([place], [place], [place], [place], [place]) Address [address] [place] [address] Care Team Providers Care Florist Name Role Phone [facility], Provider Not In The System Primary Care Provider Unavailable Encounter Details Date Type Department Care Team (Late st Contact Info) Description 04/28/2019 Transcribed Document [facility] [place] [facility] [place] [address] ProviderJean-Claude MD [address] [place], [place] [id number] Social History Tobacco Use Types Packs/Day Years Used Date Smoking Tobacco: Never Assessed Comments Unknown Sex and Gender Information Value Date Recorded Sex Assigned at Not on file Legal Sex Female 5:42 PM CDT Gender Identity Not on file Sexual Orientation Not on file documented as of this encounter Miscellaneous Notes * Cerner Conversion Note - Historical ProviderMD - 04/28/2019 8:05 AM MATHEMATICS DEPARTMENT CHAIR ADI Main OR PostOp Summary Primary Physician: MADISON OSPINA MD-ORT Finalized Date/Time: 04/28/19 10:18:29 Pt. Name: MOISE ATKINSON/Sex: 1950 Female Med Rec #: [id number] Physician: MADISON OSPINA MD-ORT Financial #: [id number] Pt. Type: O Room/Bed: Admit/Disch: 04/28/19 05:30:00 - [place] [facility] [place] PostOp Case Times Entry 1 In PACU II 04/28/19 09:36:00 Ready for PACU II 04/28/19 10:15:00 Discharge Discharge from PACU 04/28/19 10:15:00 II Last Modified By: Shanel Conrad SPENCER 04/28/19 10:18:24 Finalized By: Shanel Conrad, RN Document Signatures Signed By: Shanel Conrad RN 04/28/19 10:18 Electronically signed by May [facility] Conversion Commercial Lines Insurance Agent Cerner at 07/23/2022 4:27 PM CDT documented in this encounter Plan of Treatment Not on file documented as of this encounter Visit Diagnoses Not on filedocumented in this encounter Care Teams Florist Relationship Specialty Start Date End Date [facility], Provider Not In The System, [place] [address] PCP - General 04/16/23 documented as of this encounter
--- OUTSIDE RECORDS SUMMARY | 2025-03-25 09:48 | XMS_ITS ---
Author Organization [facility] Address [address] [id number] Care Team Providers Care Envelope Machine Adjuster Name Role Phone Timothy Granda DO Primary Care Provider [phone] Hepatitis C Program Status:Paused (Paused) Program category:Social Work Start date:08/03/2022 Enrollment date:08/03/2022 Enrollment reason:HCV Continued Care and Services Coordination
--- OUTSIDE RECORDS SUMMARY | 2025-03-25 09:48 | XMS_ITS | Encounter Summary ---
Author Organization [employer] ([place], [place], [place], [place], [place]) Address [address] [place] [address] Care Team Providers Care Laser Printing Operator Name Role Phone [facility], Provider Not In The System Primary Care Provider Unavailable Encounter Details Date Type Department Care Team (Late st Contact Info) Description 04/28/2019 Transcribed Document [facility] [place] [facility] [place] [address] ProviderJean-Claude MD [address] [place] [address] Social History Tobacco Use Types [...] - Historical ProviderMD - 04/28/2019 7:06 AM IT SYSTEMS ANALYST CONSULTANT Pre Procedure Adult Entered On: 04/28/2019 7:12 EST Performed On: 04/28/2019 7:06 EST by ISAMAR MORRISON RN Height and Weight, Clinical Dosing Height Source : Stated Height Entry Format : [place] Height, Feet : 5 ft(Converted to: 152 cm, 60 Inch) Height, Inches : 2 Inch(Converted to: 0 ft 2 Inch, 5.08 cm) Clinical Height : 157.48 cm Weight Source : Standing scale Weight Entry Format : [place] Clinical Dosing Weight : 85 kg Weight, Pounds : 187 lb Body Surface Area (BSA) : 1.86 m2 Body Mass Index : 34.3 kg/m2 (HI) [place] Body Weight : 50 kg ISAMAR MORRISON [...] ISAMAR MORRISON RN - 04/28/2019 7:06 EST [place] Suicide Severity Rating Scale (C-SSRS) CSSRS Past [...] Obtained From : Patient Primary Language : Icelandic Preferred Communication Mode : Verbal Communication Barrier [...] Scale Risk Level : 0-24 Low Risk [place] Fall Interventions : Bed in low position, [...] on filedocumented in this encounter Care Teams Laser Printing Operator Relationship Specialty Start Date End Date Leslee, Provider Not In The System, [place] [address] PCP - General 04/16/23 documented as of this encounter
--- OUTSIDE RECORDS SUMMARY | 2025-03-25 09:48 | XMS_ITS | Clinical Summary ---
Author Organization [employer] ([place], [place], [place], [place], [place]) Address [address] [place] [address] Care Team Providers Care Spine Specialist Name Role Phone Sj, Provider Not In [...] Date Dereje rded Speak language other than Vietnamese at home Not on file 04/12/2023 Want [...] - 1-dose 75+ series) 09/26/2026 Care Teams Spine Specialist Relationship Specialty Start Date End Date [facility], Provider Not In The System, [place] [address] PCP - General 04/16/23
--- OUTSIDE RECORDS SUMMARY | 2025-03-25 09:48 | XMS_ITS | Clinical Summary ---
Author Organization [facility] Address [address] [place] [address] Phone Care Team Providers Care Metal Weigher Name Role Phone Unavailable Primary Care Provider [...] Insurance MEDICARE [place] PART A AND B GLOG
--- OUTSIDE RECORDS SUMMARY | 2025-03-25 09:48 | XMS_ITS | Encounter Summary ---
Author Organization [employer] ([place], [place], [place], [place], [place]) Address [address] [place] [address] Care Team Providers Care Network Support Analyst Name Role Phone Sj, Provider Not In The System Primary Care Provider Unavailable Encounter Details Date Type Department Care Team (Late st Contact Info) Description 04/28/2019 Transcribed Document [facility] [place] [facility] [place] [address] ProviderJean-Claude MD [address], [place] [id number] Social History Tobacco Use Types Packs/Day Years Used Date Smoking Tobacco: Never Assessed Comments Unknown Sex and Gender Information Value Date Recorded Sex Assigned at Not on file Legal Sex Female 5:42 PM CDT Gender Identity Not on file Sexual Orientation Not on file documented as of this encounter Miscellaneous Notes * Cerner Conversion Note - Historical ProviderMD - 04/28/2019 9:04 AM GEOGRAPHY PROFESSOR DATE OF PROCEDURE: 04/28/2019 SURGEON: Timothy Foster [...] to the recovery room in satisfactory condition. /[id number] MD MICHAEL Trujillo/JAZMYN / MICHAEL / MODL /[id number] documented in this encounter Plan of Treatment Not on file documented as of this encounter Visit Diagnoses Not on filedocumented in this encounter Care Teams Network Support Analyst Relationship Specialty Start Date End Date Leslee, Provider Not In The System, [place] [address] PCP - General 04/16/23 documented as of this encounter
--- OUTSIDE RECORDS SUMMARY | 2025-03-25 09:48 | XMS_ITS | Encounter Summary ---
Author Organization [employer] ([place], [place], [place], [place], [place]) Address [address] [place] [address] Care Team Providers Care Shipping Agent Name Role Phone [facility], Provider Not In The System Primary Care Provider Unavailable Encounter Details Date Type Department Care Team (Late st Contact Info) Description 04/28/[address] [facility] [place] [facility] [place] [address] ProviderJean-Claude MD [address], [place] [id number] Social History Tobacco Use Types Packs/Day Years Used Date Smoking Tobacco: Never Assessed Comments Unknown Sex and Gender Information Value Date Recorded Sex Assigned at Not on file Legal Sex Female 5:42 PM CDT Gender Identity Not on file Sexual Orientation Not on file documented as of this encounter Miscellaneous Notes * Cerner Conversion Note - Historical ProviderMD - 04/28/2019 8:05 AM MANAGER ROUTE ADI Main OR PACU Summary Primary Physician: MADISON OSPINA MD-ORT Finalized Date/Time: 04/28/19 09:40:55 Pt. Name: MOISE ATKINSON/Sex: 1950 Female Med Rec #: [id number] Physician: MADISON OSPINA MD-ORT Financial #: [id number] Pt. Type: O Room/Bed: Admit/Disch: 04/28/19 05:30:00 - Institution: [facility] OR PACU Case Times Entry 1 In PACU I 04/28/19 08:38:00 Ready for PACU 04/28/19 09:33:00 Discharge Discharge from PACU 04/28/19 09:33:00 I Last Modified By: Eduarda Patel Rn Patient Care Bedside 04/28/19 09:40:12 [facility] OR PACU Case Times Audit 04/28/19 09:40:12 Quality Assurance Monitor Chassis: SADE Modifier: SADE <+> 1 Ready for PACU Discharge <+> 1 Discharge from PACU I Finalized By: Eduarda Patel Rn Patient Care Bedside Document Signatures Signed By: Eduarda Patel Rn Patient Care Bedside 04/28/19 09:40 documented in this encounter Plan of Treatment Not on file documented as of this encounter Visit Diagnoses Not on filedocumented in this encounter Care Teams Shipping Agent Relationship Specialty Start Date End Date [facility], Provider Not In The System, [place] [address] PCP - General 04/16/23 documented as of this encounter
[2025-03-25 09:49] LABS: Influenza A, PCR Not Detected (NotDetected); Influenza B, PCR Not Detected (NotDetected)
--- OUTSIDE RECORDS SUMMARY | 2025-03-25 09:49 | XMS_ITS | Clinical Summary ---
Author Organization [facility] Address [address] [place] [address] Care Team Providers Care Turkish Line Attendant Name Role Phone Timothy Granda DO Primary Care Provider [phone] Allergies Active Allergy Reactions Criticality Noted Date [...] 01/19/2025 10:00 AM EDT Office Visit [facility] Nephrology, Bone & Mineral Metabolism [address], [address] [place] [address] Gutierrez Domínguez MD Acute kidney injury (Primary Dx); Vitamin D deficiency; CKD stage 3a, GFR 45-59 ml/min ([facility]); Chronic kidney disease-mineral and bone disorder (CKD-MBD); Secondary hyperparathyroidism of renal origin ([facility]); Hypertension, unspecified type; Hyperlipidemia, unspecified hyperlipidemia type 01/19/2025 Travel 01/07/2025 Orders Only [facility] [address] [place] [address] Shantal Solorio TIP (acute kidney injury) [...] drink first t mini in the morning ([employer] 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 0 11/15/2023 CAGE Questionnaire Score 0 024 Utilities Answer Date Recorded In the past 12 months has th e [employer], gas, oil, or water company threatened to [...] Nephrology, Bone & Mineral Metabolism [address] [place] [address] Gutierrez Domínguez MD [address] [place] [address] Health Maintenance Due Date Last Done Comments [facility]-Bone Density Scan 1950 [facility]-/Child/Adol SDOH Screenings 1950 Diabetes: Dental Exam 09/26/1961 [facility]- SDOH Screenings 09/26/1969 [facility]-Adult SDOH Screenings 09/26/1969 [facility]-DTaP,Tdap,and Td Vaccines (1 - Tdap) 09/26/1970 CT Colonography 09/26/1996 FIT-DNA 09/26/1996 FIT 09/26/1996 FOBT 09/26/1996 [facility]-Breast Cancer Screening 09/26/2001 [facility]-Zoster Vaccines (1 of 2) 09/26/2001 [facility]-Medicare Annual Wellness (AWV) 03/13/2023 03/13/2022 [facility]-Diabetes: Hemoglobin A1C 01/19/2024 07/22/2023, 07/10/2018 [facility]-Depression Screening 03/27/2024 03/27/2023 [id number] Vaccine ( season) 2024 02/20/2024, 02/09/2023, 01/25/2022, [...] 11/20/2023, 11/14/2023, Additional history exists HPV Vaccines (No Doses Required) Completed [facility]-HIB Vaccines Aged Out No longer e [...] Antigen Negative Negative 08/02/2023 7:49 PM EDT [facility] Hepatitis A Antibody IgM [...] ORDERABLES Final R esult Performing Organization Address [facility] Co de Phone Number [facility] [address] [place] [address] * Hemoglobin A1c (07/22/2023 6:02 AM EDT) Hemoglobin A1c 4.9 <5.7 % 07/22/2023 11:20 AM EDT [facility] Blood Venous blood specimen / Unknown Venipuncture / Unknown 07/22/2023 6:02 AM EDT 07/22/2023 6:12 AM EDT Narrative [facility] - 07/22/2023 11:20 AM EDT HA1C Interpretive Data: Diagnosis of Diabetes: Diabetic > or = 6.5% Pre-diabetic 5.7 to 6.4% Non-diabetic < or = 5.6% Glycemic Targets for Type I and Type II Diabetics: Non- Adults <7.0% Adults <6.0% Children and Adolescents <7.5% Source: [place] [employer]. Standards of medical care in diabetes,2017. Diabetes Care.2017:40 (suppl 1):S1-S135. HbA1c assay performed by an ion-exchange chromatography method that is certified traceable to the DCCT. us Diana Banks APRN LAB BLOOD ORDERABLES Fin al Result Performing Organization Address [facility] Co de Phone Number [facility] [address] [place] [address] * Flexible Sigmoidoscopy (02/21/2023 10:25 AM EST) [...] Page MD Adam Rooks, MD Proceduralist residential real estate sales manager Adama Montes, Chika Peterson CRNA, RN Endo Nurse Butch Little MD Fellow Tete Whitmore Endo Bus Aide Preprocedure A history and physical has been [...] of bowel preparation was evaluated using the [place] Bowel Preparation Scale with scores of: left [...] of bowel preparation was evaluated using the [place] Bowel Preparation Scale with scores of: right [...] Recently Relevant to Health Maintenance Insurance MEDICARE [facility] Advance Directives * Full Code (Latest [...] Patient has decision-making capacity? Yes Care Teams Turkish Line Attendant Relationship Specialty Start Date End Date Timothy Granda DO [address] [place] [address] PCP - General 05/25/23
--- NOTE | 2025-03-25 10:08 | HMH.EDGENADL ---
Discharge Plan Disposition Patient Disposition: Home, Self-Care Prescriptions Prescriptions: No Action aripiprazole 2 mg tablet 2 mg PO DAILY estradiol 0.25 mg/0.25 gram (0.1 %) gel in packet 1 packet transdermal DAILY nystatin 100,000 unit/gram cream 1 applic TOPICAL BID Qty: 30 5RF duloxetine 60 mg capsule,delayed release(DR/EC) 60 mg PO BID Qty: 60 1RF diphenoxylate-atropine 2.5-0.025 mg tablet 1 tab PO ONCE PRN hydralazine 10 mg tablet 10 mg PO Q6H PRN (Reason: blood pressure) acyclovir 400 mg tablet 400 mg PO DAILY amlodipine 5 mg tablet 5 mg PO BID Qty: 60 5RF ergocalciferol (vitamin D2) 1,250 mcg (50,000 unit) capsule 1,250 mcg PO WEEKLY Qty: 4 1RF atorvastatin 40 mg tablet 40 mg PO DAILY Qty: 90 3RF levothyroxine 25 mcg tablet 25 mcg PO DAILY Qty: 90 3RF furosemide 40 mg tablet 40 mg PO DAILYP PRN (Reason: Edema) Qty: 30 1RF hydromorphone 4 mg tablet 4 mg PO BID PRN (Reason: Pain) Qty: 60 0RF amitriptyline 50 mg tablet 50 mg PO HS Qty: 30 3RF oxycodone 10 mg tablet 10 mg PO Q6HP MDD No> 6/day PRN (Reason: Moderate Pain (Scale Score 5-6)) Qty: 180 0RF clonidine HCl 0.1 mg tablet 0.1 mg PO .COMPLEX Qty: 60 5RF Rx Instructions: 0.1 mg orally; dicyclomine 10 mg capsule 10 mg PO TIDP PRN (Reason: abdominal pain) ciclopirox 0.77 % gel 1 applic topical DAILY Rx Instructions: Apply daily to affected toenail. Smooth with emery board weekly. Referrals Follow up/Referrals: Connor Gomez MD [Primary Care Provider, Family Practice] - See instructions Activity Restrictions/Add. Instructions Additional Instructions/Restrictions: Based on your current medications, you are not a candidate for Paxlovid. I encourage you to continue your medications at home as prescribed. Encourage you to follow with your primary care doctor if symptoms persist. If you develop any new or worsening symptoms, such as worsening shortness of breath, chest pain, or if you become concerned for your health for any reason, return to the emergency department for evaluation. Clinical Impressions Clinical Impression: COVID-19 Instructions Patient Instructions: Cough Print Language Print Language: Pashto Discharge ED Provider: Edison May Adult HPI General Chief complaint: Cough Stated complaint: + @home Covid test fever bd ache cough Time Seen by Provider: 03/25/25 09:47 Mode of Arrival: Ambulatory Source of Information: Patient Description of Symptoms (Recalled from ER Triage Doc. by RN): pt presents to ED with c/o covid poisitive test at home. pt states that she tried to get into her pcp office but they are closed today. pt requesting paxlovid. smyptoms ongoing for a couple of days . cough, fever, malaise. History of Present Illness HPI narrative: Farrah Atkinson is a 74-year-old female with a history of IBS, ileostomy, hyperlipidemia on atorvastatin who presents to the emergency department after having a positive home COVID test. Patient states that starting 2 days ago, she developed mild cough, myalgias, fever at home. She took a COVID test this morning at home that was positive. She tried to contact her primary care doctor but he is not in office today. She came to the emergency department and is seeking treatment with Paxlovid. Related Data Home Medications ?Medication ?Instructions ?Recorded ?Confirmed aripiprazole 2 mg tablet 2 mg PO DAILY 05/09/24 03/02/25 ciclopirox 0.77 % topical gel 1 applic topical DAILY 11/30/24 03/02/25 dicyclomine 10 mg capsule 10 mg PO TIDP PRN abdominal pain 11/30/24 03/02/25 estradiol 0.25 mg/0.25 gram (0.1 1 packet transdermal DAILY 01/08/25 03/02/25 %) transdermal gel packet acyclovir 400 mg tablet 400 mg PO DAILY 03/02/25 03/02/25 Held on 03/02/25. Instructions: Home Medication placed on hold at Doctor's office diphenoxylate-atropine 2.5 1 tab PO ONCE PRN 03/02/25 mg-0.025 mg tablet hydralazine 10 mg tablet 10 mg PO Q6H PRN blood pressure 03/02/25 03/02/25 Previous Rx's ?Medication ?Instructions ?Recorded ergocalciferol (vitamin D2) 1,250 1,250 mcg PO WEEKLY #4 caps 07/07/24 mcg (50,000 unit) capsule atorvastatin 40 mg tablet 40 mg PO DAILY #90 tabs 10/16/24 nystatin 100,000 unit/gram topical 1 applic topical BID Rash #30 grams 01/08/25 cream levothyroxine 25 mcg tablet 25 mcg PO DAILY #90 tabs 01/11/25 duloxetine 60 mg capsule,delayed 60 mg PO BID #60 caps 02/09/25 release furosemide 40 mg tablet 40 mg PO DAILYP PRN Edema #30 tabs 02/11/25 amlodipine 5 mg tablet 5 mg PO BID #60 tabs 03/02/25 hydromorphone 4 mg tablet 4 mg PO BID PRN Pain #60 tabs 03/04/25 amitriptyline 50 mg tablet 50 mg PO HS #30 tabs 03/10/25 oxycodone 10 mg tablet 10 mg PO Q6HP PRN Moderate Pain 03/17/25 (Scale Score 5-6) #180 tabs clonidine HCl 0.1 mg tablet 0.1 mg PO .COMPLEX #60 tabs 03/24/25 Allergies Allergy/AdvReac Type Severity Reaction Status Date / Time ciprofloxacin (From Cipro) Allergy Intermediate Muscle Pain Verified 03/02/25 09:07 levofloxacin (From Levaquin) AdvReac Rash Verified 03/02/25 09:07 [facility] Disclaimer: The information contained in this section may have been updated after the patient was seen, as this information can be updated by other users. Medical History (Updated 03/25/25 @ 10:14 by Edison May MD) Recurrent urinary tract infection Posterior reversible encephalopathy syndrome Abdominal pain Injury of right toe Hypomagnesemia Enteropathogenic Escherichia coli infection Gastroenteritis Increased ileostomy output Vomiting Hypertensive urgency Tailor's bunion of both feet Class 1 obesity Osteoarthritis of feet, bilateral Hammertoes of both feet Acquired hallux valgus of both feet Painful orthopaedic hardware Onychomycosis Head trauma Memory loss Hand pain, right Fall Acute head trauma Vaginal atrophy Functional abdominal pain syndrome Exocrine pancreatic insufficiency Bloating Generalized abdominal pain Asthma At risk for osteoporosis Ankle fracture, lateral malleolus, closed Obstruction of small intestine after surgical procedure Postoperative abscess Chronic UTI Obesity Anemia Left foot pain Right foot injury Chronic kidney disease TIP (acute kidney injury) Systolic murmur Bowel wall thickening Ischemic bowel disease Hypertension Paroxysmal atrial fibrillation Aftercare following bilateral knee joint replacement surgery C. difficile diarrhea Colostomy in place Perforated sigmoid colon Elevated liver enzymes Ileus Abnormal electrocardiogram [ECG] [EKG] Abdominal pain Hypothyroidism IBS (irritable bowel syndrome) HLD (hyperlipidemia) Hypokalemia Hypokalemia due to loss of potassium Surgical History History of bunionectomy of both great toes Ileostomy status H/O ileostomy History of total right hip replacement History of arthroscopy of left shoulder Family History Other Anemia Asthma Cancer Hyperlipidemia Social History Smoking Status: Never smoker second hand exposure: No alcohol intake: never current occupational status: retired Travel in the last 8 weeks?: None household members: spouse housing: house marital status: current occupational exposures/hazards: No caffeine: No Have you lived/traveled outside US in past 30 days?: No Contact w/someone who lives/traveled outside US past 30 days?: No Exposure to someone with infectious disease in past 14 days?: No Do you have a fever (greater than 100.4 F or 38 C)?: Yes Have you tested positive for COVID-19?: Yes Exposed to someone with COVID-19 in past 14 days?: No Do you have a sore throat?: Yes Do you have a cough?: Yes Do you have any weakness?: Yes Do you have any diarrhea?: No Are you experiencing any unusual bleeding?: No Do you have any muscle aches/pain?: No Do you have any abdominal pain?: No Are you experiencing loss of taste or smell?: No Other Medical History Have you received the Flu Vaccine for this season: No Have you received the Pneumonia Vaccine: Yes ROS Obtained: Yes Systems reviewed as appropriate & no additional complaints except as documented Physical Exam General General appearance: alert Comment: Ill but non-toxic appearance Head Head exam: atraumatic and other (nasal congestion) Eye Eye exam: Present normal appearance ENT ENT exam: Present normal external ear exam Neck Neck exam: Present full ROM Chest Chest inspection: Present symmetric chest wall rise Respiratory Respiratory exam: Present normal lung sounds bilaterally; Absent respiratory distress, wheezes or stridor Cardiovascular Cardiovascular exam: Present regular rate and normal rhythm Abdominal Exam Abdominal exam: Present soft; Absent tenderness or guarding Extremities Exam Extremities exam: Present normal inspection Back Exam Back exam: Present normal inspection Neurological Exam Neurological exam: Present alert and oriented X3 Psychiatric Psychiatric exam: Present normal affect Skin Skin exam: Present warm and dry Medical Decision Making Medical Records Screening: Per USPSTF and CDC recommendations, given the prevalence of disease in our region, it is our hospital?s policy to screen for HIV and viral Hepatitis for all patients aged 18 and over and those with ongoing risk factors. Beto Inquiry Pt receiving controlled substance: No Vital Signs: 03/25/25 09:42 Temperature 98.3 F Temperature Source Oral Pulse Rate [Left Radial] 103 H Respiratory Rate 19 Blood Pressure [Right Arm] 164/83 H Blood Pressure Mean [Right Arm] 110 02 Sat by Pulse Oximetry 96 Oxygen Delivery Method Room Air Orders (Tests/Meds): ORDERS Category Date Time Status Rapid PCR Covid and Flu A/B Stat Lab 03/25/25 09:43 Received Medical Decision Narrative: Farrah Atkinson is a 74-year-old female with a history of IBS, ileostomy, hyperlipidemia on atorvastatin who presents to the emergency department after having a positive home COVID test. Patient states that starting 2 days ago, she developed mild cough, myalgias, fever at home. She took a COVID test this morning at home that was positive. She tried to contact her primary care doctor but he is not in office today. She came to the emergency department and is seeking treatment with Paxlovid. On arrival, patient's blood pressure is elevated, vital signs otherwise within normal limits and heart rate normal on my evaluation. Oxygen saturation 96% on room air. Physical exam, stated above, revealed a nontoxic-appearing female in no respiratory distress. She does have nasal congestion and a mild cough. Lung sounds are clear bilaterally. Patient showed me her home COVID test that was positive. Patient requested repeat swab here. This was sent. Based on her reassuring vital signs and symptomatology, I do feel that her symptoms are best explained by COVID-19 diagnosis and that no additional x-ray imaging or laboratory studies are indicated at this time. I do feel that based on patient's current medications, notably atorvastatin, that she is not a candidate for Paxlovid. Also, she is on day 2 or 3 of illness and it would likely not be effective if given at this time. I did explain this to the patient and she demonstrated understanding. Encourage patient to follow the results of her COVID swab online but given her positive home test, I do feel that she has COVID-19. Recommended conservative management at home and strict return precautions were given. All questions were answered. She demonstrated understanding and was in agreement with this plan. She was then discharged from the emergency department in stable condition. Critical Care Critical Care Time Critical Care Time: No
[2025-03-25 10:21] VITALS: BP 152/71; PULSE 87; RESP 13; TEMP 36.7; O2SAT 96
[2025-03-25 11:05] LABS: Coronavirus 19, PCR Detected (NotDetected)
== END 2025-03-25 10:22 | disposition home or self-care (01) ==
PROVIDERS: Emergency Provider Student in an Organized Health Care Education/Training Program; PCP Family Medicine
DX: U07.1 COVID-19 (principal); R50.9 Fever, unspecified
CPT/HCPCS: 87636; 99282; 99283